=== PATIENT | female | born 1970 | race African-American/Black ===

== ENCOUNTER 2016-03-04 14:12 | Outpatient (RCR) | payer MEDICARE, MEDICAID ==
[~2016-03-04 14:12] MED LIST: AGM875T GT; ALBU8.5H2 INH; AMOX-355 PO; AZIT-21 PO; AZIT250T5 PO; Azithromycin PO; CEFD300C3 PO; CEFU250T PO; CHOL400T29 PO; CYAN10006 PO; CYCL10TA45 PO; CYCL10TA9 PO; DOCU-143 PO; DULO30CA PO; DULO30CA48 PO; ERT250T PO; ERYT-96 PO; ERYT500T8 PO; ERYTHROMYCIN BASE; ESCI20TA2 PO; ESCI20TA38 PO; Fentanyl TD; HUMALOG; HYOS0.1216 PO; INSU100I10 SQ; INSU100I23 SQ; LSNP10T PO; MEGE20TA6 PO; METO5TAB2 PO; METO5TAB79 PO; MORP15TA PO; MULT-68 PO; OMEP40CA36 PO; ONDA-42 SL; ONDA4TAB8 SL; OXYC-109 PO; OXYC-12 PO; OXYC-272 PO; OXYC-465 PO; POLY119P5 PO; PRD10T PO; RIVA15TA PO; RIVA20TA2 PO; Rivaroxaban PO; TRAM50TA2 PO; VITAMIN; VITAMIN B-12 PO; VITAMIN D; ZOLP10TA5 PO
--- OUTSIDE RECORDS SUMMARY | 2016-03-04 14:16 | XMS REPORT | Continuity of Care Document ---
Author Author [facility] Organization [facility] Address Unknown Phone Unavailable Care Team Providers Care Hog Scalder Name Role Phone Dpt Ku, Medicine PCP [phone] Source Comments Some departments are not documenting in the electronic medical record. If you do not see the information that you expected, contact Release of Information in the Health Information Management department at [phone] for further assistance in locating additional records.[facility] Active Allergies and Adverse Reactions Allergen Noted Date Severity Reactions Comments Aspirin 05/24/2007 High SWELLING Coumadin 05/24/2007 High RASH, VOMITING, ITCHING Ibuprofen 05/24/2007 High SWELLING Toradol 05/24/2007 Medium SWELLING Patient reports she tolerates with Benadryl. Current Medications Prescription Sig. Disp. Refills Start End Date Status Date promethazine (PHENERGAN) Take 1 Tab by mouth Three 60 2 03/17/20 Active 25 mg tablet Times Daily as needed 09 for Nausea. topiramate (TOPAMAX) 100 Take 1 Tab by mouth Twice 60 2 03/17/20 Active mg tablet Daily. 09 oxycodone/acetaminophen Take 1 Tab by mouth Every 30 0 05/13/20 Active (PERCOCET) 5/325 mg 4 Hours as needed for 09 tablet Pain. promethazine (PHENERGAN) Take 1 Tab by mouth Every 5 0 05/26/19 Active 25 mg tablet 6 Hours as needed for 10 Nausea. prochlorperazine Take 1 Tab by mouth Every 5 0 05/26/19 Active (COMPAZINE) 10 mg tablet 6 Hours as needed. 10 ZOLPIDEM TARTRATE (AMBIEN Take by mouth. Active PO) ERYTHROMYCIN BASE Use as directed. Active (ERYTHROMYCIN, BULK, MISC) morphine SR (AVINZA) 30 Take 30 mg by mouth Active mg capsule Daily. megestrol (MEGACE) 40 mg Take 40 mg by mouth Active tablet Daily. MULTIVITAMINS Take by mouth. Active (MULTIVITAMIN PO) CYANOCOBALAMIN (VITAMIN Take by mouth. Active B-12 PO) Morphine 30 mg CSRP Take by mouth Every 12 Active Hours. estradiol (ESTRACE) 1 mg Take 2 mg by mouth Daily. Active tablet ERGOCALCIFEROL (VITAMIN D Take 1,000 Units by mouth Active PO) Daily. escitalopram (LEXAPRO) 20 Take 1 Tab by mouth 30 Tab 0 10/03/19 Active mg PO tablet daily. 11 Active Problems Problem Noted Date Superior mesenteric artery syndrome (HCC) 03/17/2009 Anemia 03/17/2009 Vitamin D deficiency 03/17/2009 Malnutrition ([facility]) 03/17/2009 Weight loss, unintentional 03/06/2009 Abdominal pain 09/17/2008 Migraine 09/17/2008 Depression 09/17/2008 Anxiety 09/17/2008 Suicide attempt ([facility]) 09/17/2008 Asthma 09/17/2008 Chronic pain 09/17/2008 Immunizations Name Dates Previously Given Next Due FLU VACCINE >3YO 03/04/2009 (Preservative Free) Social History Tobacco Use Types Packs/Day Years Used Date Former Smoker Cigarettes Quit: 01/24/2009 Alcohol Use Drinks/Week oz/Week Comments No Last Filed Vital Signs Vital Sign Reading Time Taken Blood Pressure 137/100 11/30/2009 1:39 PM CDT Pulse 91 11/30/2009 1:39 PM CDT Temperature 36.9 C (98.5 F) 11/30/2009 10:04 AM CDT Respiratory Rate - - Height 1.575 m (5' 2") 11/30/2009 10:04 AM CDT Weight 42.638 kg (94 lb) 11/30/2009 10:04 AM CDT Body Mass Index 17.19 11/30/2009 10:04 AM CDT Oxygen Saturation 100% 11/30/2009 1:34 PM CDT Plan of Care Health Maintenance Due Date Last Done Comments Physical (Comprehensive) 1978 Exam Pertussis Vaccine 1982 Tetanus Vaccine 1988 Cervical Cancer Screening 1992 Influenza Vaccine 01/25/2016 03/04/2009 Results from Last 3 Months Not on file
[2016-03-04 14:40] LABS: BASOPHILS % (AUTO) 0 % (0-10); EOSINOPHILS # (AUTO) 0.4 10^3/uL (0.0-0.3); EOSINOPHILS % (AUTO) 4 % (0-10); LYMPHOCYTES # (AUTO) 3.5 X 10^3 (1.0-4.0); LYMPHOCYTES % (AUTO) 33 % (12-44); MEAN CORPUSCULAR HEMOGLOBIN 27 PG (25-34); MEAN CORPUSCULAR HGB CONC 32 G/DL (32-36); MEAN CORPUSCULAR VOLUME 83 FL (80-99); MEAN PLATELET VOLUME 10.4 FL (7.4-10.4); MONOCYTES # (AUTO) 0.7 X 10^3 (0.0-1.0); MONOCYTES % (AUTO) 7 % (0-12); NEUTROPHILS # (AUTO) 6.1 X 10^3 (1.8-7.8); NEUTROPHILS % (AUTO) 57 % (42-75); PLATELET COUNT 333 10^3/uL (130-400); RED BLOOD COUNT 5.13 10^6/uL (4.35-5.85); RED CELL DISTRIBUTION WIDTH 13.4 % (10.0-14.5); WHITE BLOOD COUNT 10.6 10^3/uL (4.3-11.0)
[2016-03-04 15:32] LABS: ALANINE AMINOTRANSFERASE 28 U/L (0-55); ALBUMIN 4.2 G/DL (3.2-4.5); ANION GAP 14 MMOL/L (5-14); ASPARTATE AMINO TRANSFERASE 27 U/L (5-34); BILIRUBIN,TOTAL 0.4 MG/DL (0.1-1.0); BLOOD UREA NITROGEN 10 MG/DL (7-18); BUN/CREATININE RATIO 10; CALCIUM 9.9 MG/DL (8.5-10.1); CARBON DIOXIDE 20 MMOL/L (21-32); CHLORIDE 99 MMOL/L (98-107); CREATININE SERUM 1.04 MG/DL (0.60-1.30); GFR ESTIMATED > 60; POTASSIUM 4.7 MMOL/L (3.6-5.0); SODIUM 133 MMOL/L (135-145); TOTAL PROTEIN 7.4 G/DL (6.4-8.2)
[2016-03-04 15:35] LABS: GLUCOSE 491 MG/DL (70-105)
[2016-03-04 17:10] LABS: %SAT TOTAL IRON BINDING CAPIC 18 % (15-50); TIBC 331 ug/dL (280-380)
[2016-03-04 17:23] LABS: UIBC 273 ug/dL (55-450)
[2016-03-05 07:54] LABS: FERRITIN 253 ng/mL (15-150)
== END 2016-06-02 | disposition home or self-care (01) ==
LOC: ONC 14:12
PROVIDERS: ATTEND Internal Medicine Hematology & Oncology
DX: I27.82 Chronic pulmonary embolism (principal); D64.9 Anemia, unspecified; E11.9 Type 2 diabetes mellitus without complications; F32.9 Major depressive disorder, single episode, unspecified; Z79.01 Long term (current) use of anticoagulants; Z79.899 Other long term (current) drug therapy; F17.210 Nicotine dependence, cigarettes, uncomplicated
CPT/HCPCS: 36415; 80053; 82728; 83540; 85025; 99213

== ENCOUNTER → 2016-06-06 | Outpatient (CLI) | payer MEDICARE, MEDICAID ==
[~2016-06-06] MED LIST changes: +ACET-93 PO; +CATHETER FLUSH 10 ML SYR IV PRN; +CIPR250T3 PO; +DRON5CAP PO; +ESCI20TA45 PO; +GABA600T2 PO; +IOHEXOL 350 MG/ML 100 ML (OMNIPAQUE 350) VIAL IV ONE; +METO10TA3 PO; +METR500T21 PO; +NS 100 ML (IVPB) BAG IV ONE; +POLY255P PO; +PREG300C PO; +RIVA20TA PO; +VARE1TAB21 PO
--- OUTSIDE RECORDS SUMMARY | 2016-06-06 12:57 | XMS REPORT | Continuity of Care Document ---
Author Author [facility] Organization [facility] Address Unknown Phone Unavailable Care Team Providers Care Ammunition Assembly I Laborer Name Role Phone Dpt Ku, Medicine PCP [phone] Source Comments Some departments are not documenting in the electronic medical record. If you do not see the information that you expected, contact Release of Information in the Health Information Management department at [phone] for further assistance in locating additional records.[facility] [...] Anemia 03/17/2009 Vitamin D deficiency 03/17/2009 Malnutrition ([facility]) 03/17/2009 Weight loss, unintentional 03/06/2009 Abdominal pain 09/17/2008 Migraine 09/17/2008 Depression 09/17/2008 Anxiety 09/17/2008 Suicide attempt ([facility]) 09/17/2008 Asthma 09/17/2008 Chronic pain 09/17/2008 Immunizations [...]
--- NOTE | 2016-06-06 14:23 | Diagnostic Imaging Report ---
PROCEDURE: CT abdomen and pelvis with contrast. TECHNIQUE: Multiple contiguous axial images were obtained through the abdomen and pelvis after administration of intravenous contrast. INDICATION: Periumbilical abdominal pain. 100 mL of Omnipaque 350 is administered intravenously. Patient had mesh repair, appendectomy and hysterectomy. FINDINGS: The lung bases demonstrate no significant abnormality. The liver, the gallbladder, the spleen, the pancreas, and the adrenal glands appear unremarkable. The kidneys have symmetric enhancement and contrast excretion. There is no hydronephrosis. Slight prominence in the left renal pelvis and anterior projection of the renal sinus in the left kidney is probably a normal variation. The urinary bladder appears unremarkable. The abdominal aorta is normal in caliber. No para-aortic significantly enlarged lymph node is seen. There is moderate amount of fecal material seen throughout the colon and rectum may relate to constipation. There is slight diastasis of the recti seen and mild laxity of the anterior abdominal wall superior to the umbilicus without hernia. No free fluid or fluid collection in the abdomen or pelvis seen. Post hysterectomy changes noted. The osseous structures appear grossly unremarkable. IMPRESSION: 1. Mild diastasis of the recti and slight laxity of the anterior abdominal wall above the umbilicus. No evidence of hernia recurrence. 2. Prominent amounts of fecal material in the colon and rectum, may relate to constipation. Dictated by: Dictated on workstation # [id number]
== END ==
LOC: RAD 12:54
PROVIDERS: ATTEND Internal Medicine
DX: R10.33 Periumbilical pain (principal)
CPT/HCPCS: 74177

== ENCOUNTER 2016-06-10 13:22 | Outpatient (RCR) | payer MEDICARE, MEDICAID ==
[~2016-06-10 13:22] MED LIST changes: -ACET-93 PO; -CATHETER FLUSH 10 ML SYR IV PRN; -CIPR250T3 PO; -DRON5CAP PO; -ESCI20TA45 PO; -GABA600T2 PO; -IOHEXOL 350 MG/ML 100 ML (OMNIPAQUE 350) VIAL IV ONE; -METO10TA3 PO; -METR500T21 PO; -NS 100 ML (IVPB) BAG IV ONE; -POLY255P PO; -PREG300C PO; -RIVA20TA PO; -VARE1TAB21 PO
--- OUTSIDE RECORDS SUMMARY | 2016-06-10 13:26 | XMS REPORT | Continuity of Care Document ---
Author Author [facility] Organization [facility] Address Unknown Phone Unavailable Care Team Providers Care Jitterbug Operator Name Role Phone Dpt Ku, Medicine PCP [phone] Source Comments Some departments are not documenting in the electronic medical record. If you do not see the information that you expected, contact Release of Information in the Health Information Management department at [phone] for further assistance in locating additional records.[facility] Active Allergies and Adverse Reactions Allergen Noted [...] Anemia 03/17/2009 Vitamin D deficiency 03/17/2009 Malnutrition ([facility]) 03/17/2009 Weight loss, unintentional 03/06/2009 Abdominal pain 09/17/2008 Migraine 09/17/2008 Depression 09/17/2008 Anxiety 09/17/2008 Suicide attempt ([facility]) 09/17/2008 Asthma 09/17/2008 Chronic pain [...]
[2016-06-10 13:43] LABS: BASOPHILS % (AUTO) 0 % (0-10); EOSINOPHILS # (AUTO) 0.2 10^3/uL (0.0-0.3); EOSINOPHILS % (AUTO) 2 % (0-10); LYMPHOCYTES # (AUTO) 3.1 X 10^3 (1.0-4.0); LYMPHOCYTES % (AUTO) 35 % (12-44); MEAN CORPUSCULAR HEMOGLOBIN 28 PG (25-34); MEAN CORPUSCULAR HGB CONC 32 G/DL (32-36); MEAN CORPUSCULAR VOLUME 85 FL (80-99); MEAN PLATELET VOLUME 10.5 FL (7.4-10.4); MONOCYTES # (AUTO) 0.5 X 10^3 (0.0-1.0); MONOCYTES % (AUTO) 6 % (0-12); NEUTROPHILS # (AUTO) 5.1 X 10^3 (1.8-7.8); NEUTROPHILS % (AUTO) 57 % (42-75); PLATELET COUNT 266 10^3/uL (130-400); RED BLOOD COUNT 4.73 10^6/uL (4.35-5.85); RED CELL DISTRIBUTION WIDTH 13.9 % (10.0-14.5); WHITE BLOOD COUNT 8.9 10^3/uL (4.3-11.0)
[2016-06-10 14:25] LABS: ALANINE AMINOTRANSFERASE 28 U/L (0-55); ALBUMIN 3.7 G/DL (3.2-4.5); ANION GAP 11 MMOL/L (5-14); ASPARTATE AMINO TRANSFERASE 20 U/L (5-34); BILIRUBIN,TOTAL 0.3 MG/DL (0.1-1.0); BLOOD UREA NITROGEN 10 MG/DL (7-18); BUN/CREATININE RATIO 12; CALCIUM 9.5 MG/DL (8.5-10.1); CARBON DIOXIDE 22 MMOL/L (21-32); CHLORIDE 106 MMOL/L (98-107); CREATININE SERUM 0.85 MG/DL (0.60-1.30); GFR ESTIMATED > 60; GLUCOSE 216 MG/DL (70-105); POTASSIUM 4.2 MMOL/L (3.6-5.0); SODIUM 139 MMOL/L (135-145); TOTAL PROTEIN 6.4 G/DL (6.4-8.2)
[2016-06-10 16:34] LABS: %SAT TOTAL IRON BINDING CAPIC 31 % (15-50); TIBC 315 ug/dL (280-380)
[2016-06-11 09:06] LABS: UIBC 218 ug/dL (55-450)
[2016-06-11 09:07] LABS: FERRITIN 156 ng/mL (15-150)
[2016-08-08] MEDS ORDERED: PREG300C PO (13:31)
== END 2016-09-08 | disposition home or self-care (01) ==
LOC: ONC 13:22
PROVIDERS: ATTEND Internal Medicine Hematology & Oncology
DX: I27.82 Chronic pulmonary embolism (principal); D64.9 Anemia, unspecified; E11.9 Type 2 diabetes mellitus without complications; F32.9 Major depressive disorder, single episode, unspecified; Z79.01 Long term (current) use of anticoagulants; Z79.899 Other long term (current) drug therapy; F17.210 Nicotine dependence, cigarettes, uncomplicated
CPT/HCPCS: 36415; 80053; 82728; 83540; 85025; 99213

== ENCOUNTER 2016-08-08 13:16 | Emergency (ER) | payer MEDICARE, MEDICAID ==
[~2016-08-08] VITALS: Ht 160 cm; Wt 46.7 kg
--- OUTSIDE RECORDS SUMMARY | 2016-08-08 13:23 | XMS REPORT | Continuity of Care Document ---
Author Author [facility] Organization [facility] Address Unknown Phone Unavailable Care Team Providers Care Operational Trainer Name Role Phone Dpt Ku, Medicine PCP [phone] Source Comments Some departments are not documenting in the electronic medical record. If you do not see the information that you expected, contact Release of Information in the Health Information Management department at [phone] for further assistance in locating additional records.[facility] Active Allergies and Adverse Reactions [...] Anemia 03/17/2009 Vitamin D deficiency 03/17/2009 Malnutrition ([facility]) 03/17/2009 Weight loss, unintentional 03/06/2009 Abdominal pain 09/17/2008 Migraine 09/17/2008 Depression 09/17/2008 Anxiety 09/17/2008 Suicide attempt (HCC) 09/17/2008 Asthma 09/17/2008 Chronic pain 09/17/2008 Immunizations [...] 11/30/2009 1:34 PM CDT Plan of Care Date Type Specialty Providers Description 09/24/2016 Appointment Gastroenterology Iman Olivo MBBS [address] [facility] [address] [place] [address] [phone] (Fax) Health Maintenance Due Date Last Done Comments Physical (Comprehensive) 1978 Exam Pertussis Vaccine 1982 Tetanus Vaccine 1988 Cervical Cancer Screening 1992 Breast Cancer Screening 2011 Influenza Vaccine 01/24/2017 03/04/2009 Results from Last 3 Months Not on file
[2016-08-08] MEDS ORDERED: PREG300C PO (13:31)
--- NOTE | 2016-08-08 14:08 | Diagnostic Imaging Report ---
EXAM: 2 views of the right ribs. INDICATION: Fall. FINDINGS: No rib fracture is seen. The right lung is clear. There is no significant effusion or pneumothorax. IMPRESSION: No rib fracture seen. Dictated by: Dictated on workstation # [id number]
--- NOTE | 2016-08-08 14:15 | ED Fall/Injury ---
General Chief Complaint: Trauma-Non Activation Stated Complaint: FALL/RIGHT RIB/BACK PAIN Nursing Triage Note: FELL DOWN THE STAIRS ONE WEEK AGO. C/O UNRELIEVED R SIDED RIB PAIN. History of Present Illness Time seen by provider: 14:25 Initial Comments Patient fell approximately one week ago and is continuing to have right rib pain. Occurred: last week Severity: mild Injuries/Pain Location: chest (right ribs) Context: lost balance, tripped Loss of Consciousness: no loss of consciousness Modifying Factors: Improves With Rest Associated Symptoms (Fall): Denies SymptomsNo Confusion, No Lightheadedness, No Muscle Spasms, No Nausea/Vomiting, No Neck Pain, No Trouble Walking, No Vision Changes Allergies and Home Medications Allergies Coded Allergies: ketorolac (Unverified Allergy, Severe, 07/07/14) aspirin (Verified Allergy, Unknown, 10/25/13) Uncoded Allergies: NSAIDS (Allergy, Unknown, 10/25/13) COUMADIN (Adverse Reaction, Unknown, 10/25/13) VOMITS BLOOD Home Medications 20 MG TABLET #30 20 MG PO DAILY Prescribed by: JESS LEVI on 08/03/14 1058 Albuterol Sulfate 8.5 Gm Aer.w.adap 2 PUFF INH QID PRN PRN SHORTNESS OF BREATH ( Reported) Cyanocobalamin 1,000 Mcg Tablet 1,000 MCG PO DAILY (Reported) Cyclobenzaprine Hcl 10 Mg Tablet 10 MG PO TID PRN PRN MUSCLE SPASMS (Reported) Duloxetine HCl 30 Mg Capsule.dr 30 MG PO DAILY (Reported) Erythromycin Base 500 Mg Tablet 500 MG PO TID (Reported) Escitalopram Oxalate 20 Mg Tablet 20 MG PO HS (Reported) Insulin Glargine,Hum.rec.anlog 300 Unit/3 Ml Insuln.pen 30 UNITS SQ HS (Reported ) Insulin Lispro 100 Unit/1 Ml Insuln.pen 8 UNIT SQ AC AM & NOON (Reported) Insulin Lispro 100 Unit/1 Ml Insuln.pen 10 UNIT SQ AC EVENING (Reported) Metoclopramide Hcl 5 Mg Tablet 5 MG PO TID (Reported) Multivitamins W-Iron 1 Tab Tablet 1 TAB PO DAILY (Reported) Omeprazole 40 Mg Capsule.dr 40 MG PO DAILY (Reported) Ondansetron 4 Mg Tab.rapdis #10 4 MG SL Q4H PRN PRN NAUSEA/VOMITING Prescribed by: MARCUS RAINEY on 08/14/15 1634 Oxycodone Hcl/Acetaminophen 1 Each Tablet 1 TAB PO TID PRN PRN PAIN (Reported) Polyethylene Glycol 3350 119 Gm Powder #1 17 GM PO TID PRN PRN CONSTIPATION Prescribed by: MARCUS RAINEY on 08/14/15 1629 Pregabalin 300 Mg Capsule 300 MG PO BID (Reported) Zolpidem Tartrate 10 Mg Tablet 30Days 5 MG PO HS You may cut the 10mg tabs in half. 5mg is the new recommended dose for women. Prescribed by: JESS LEVI on 08/03/14 1058 Constitutional: no symptoms reported see HPI Eyes: No Symptoms Reported See HPI Ears, Nose, Mouth, Throat: no symptoms reported Respiratory: see HPI other (pain right ribs, laterally) Cardiovascular: no symptoms reported see HPI Gastrointestinal: no symptoms reported see HPI Genitourinary: no symptoms reported see HPI Musculoskeletal: no symptoms reported see HPI Skin: no symptoms reported see HPI Psychiatric/Neurological: No Symptoms Reported See HPI All Other Systems Reviewed Negative Unless Noted: Yes Past Yawaqtv-Szgudj-Qvthnk Hx Patient Social History Alcohol Use: Denies Use Recreational Drug Use: No Smoking Status: Current Everyday Smoker Type Used: Cigarettes Recent Foreign Travel: No Contact w/Someone Who Travel: No Recent Infectious Disease Expo: No Recent Hopitalizations: No Immunizations Up To Date Tetanus Booster (TDap): Less than 5yrs Date of Pneumonia Vaccine: Jul 07, 2014 Date of Influenza Vaccine: Feb 23, 2015 Seasonal Allergies Seasonal Allergies: No Surgeries HX Surgeries: Yes (HERNIA, thoracentesis) Surgeries: Abdominal, Appendectomy, Hysterectomy Respiratory Hx Respiratory Disorders: Yes (HX PULMONARY EMBOLI) Respiratory Disorders: Asthma, Pulmonary Embolism Cardiovascular Hx Cardiac Disorders: No Neurological Hx Neurological Disorders: Yes (FIBROMYALGIA) Neurological Disorders: Neuropathy 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 System Hx 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 Disorders: No FRAME BANDER History: Hysterectomy Genitourinary Hx Genitourinary Disorders: No Gastrointestinal Hx Gastrointestinal Disorders: Yes (gastroparesis) Gastrointestinal Disorders: Gastroesophageal Reflux, Irritable Bowel Musculoskeletal Hx Musculoskeletal Disorders: Yes (lumbar radiculopathy) Musculoskeletal Disorders: Chronic Back Pain Endocrine Hx Endocrine Disorders: Yes Endocrine Disorders: Diabetes, Insulin dep HEENT HX ENT Disorders: No Cancer Hx Cancer: Yes Cancer: Ovarian Psychosocial Hx Psychiatric Problems: Yes Behavioral Health Disorders: Depression Integumentary HX Skin/Integumentary Disorder: No Blood Transfusions Hx Blood Disorders: Yes Adverse Reaction to a Blood Tr: No Reviewed Nursing Assessment Reviewed/Agree w Nursing PMH: Yes Family Medical History Significant Family History: No Pertinent Family Hx Family Medial History: Cardiovascular disease 19 MOTHER (CHF) G8 SISTER (CHF) Cataracts 19 MOTHER Diabetes mellitus 19 MOTHER G8 BROTHER G8 BROTHER G8 SISTER Hypertension 19 MOTHER G8 SISTER Physical Exam Vital Signs Vital Sign - Last 12Hours 08/08/16 13:22 Temp 97.4 Pulse 100 Resp 16 B/P 125/87 Pulse Ox 96 Capillary Refill : Less Than 3 Seconds General Appearance: WD/WN no apparent distress HEENT: PERRL/EOMI normal ENT inspection TMs normal pharynx normal Neck: non-tender full range of motion supple normal inspection Cardiovascular: normal peripheral pulses regular rate, rhythm no murmur Respiratory: lungs clear normal breath sounds other (pain lateral ribs, 5 through 10, no skin changes or crepitus) Gastrointestinal: normal bowel sounds non tender soft Back: normal inspection no CVA tenderness no vertebral tenderness Extremities: normal range of motion non-tender no calf tenderness normal capillary refill Neurologic/Psychiatric: no motor/sensory deficits alert normal mood/affect oriented x 3 Skin: normal color warm/dry Lymphatic: no adenopathy Gabriela Coma Score Best Eye Response: (4) Open Spontaneously Best Verbal Response: (5) Oriented Best Motor Response: (6) Obeys Commands Gabriela Total: 15 Progress/Results/Core Measures Results/Orders My Orders Orders-VELIA MATTHEWS Ribs, Right 2-3 Views (08/08/16 13:48) Cyclobenzaprine Tablet (Flexeril Tablet) (08/08/16 14:35) Vital Signs/I&O Vital Sign - Last 12Hours 08/08/16 08/08/16 13:22 14:43 Temp 97.4 97.4 Pulse 100 100 Resp 16 16 B/P 125/87 Pulse Ox 96 96 Blood Pressure Mean: 100 Diagnostic Imaging Diagonstic Imaging: Xray Plain Films/CT/US/NM/MRI: other (right ribs) Comments NAME: JAZMIN YOU Almas [facility] REC#: [id number] PT STATUS: REG ER : 1970 PHYSICIAN: VELIA MATTHEWS ADMIT DATE: 08/08/16/ER Draft Date of Exam:08/08/16 RIBS, RIGHT 2-3 VIEWS EXAM: 2 views of the right ribs. INDICATION: Fall. FINDINGS: No rib fracture is seen. The right lung is clear. There is no significant effusion or pneumothorax. IMPRESSION: No rib fracture seen. Dictated on workstation # [id number] Dict: 08/08/16 1405 Trans: 08/08/16 1408 [facility] [id number] Interpreted by: IRMA COKER MD Electronically signed by: Reviewed: Reviewed by Me Departure Impression Impression: Primary Impression: Fall (on) (from) other stairs and steps, initial encounter Additional Impression: Chest wall contusion Qualified Code: S20.211A - Contusion of right front wall of thorax, initial encounter Disposition: HOME, SELF-CARE Condition: Stable Departure-Patient Inst. Decision time for Depature: 14:30 Referrals: HORACE HIGGINS MD (PCP/Family) Primary Care Physician Patient Instructions: CHEST CONTUSION Add. Discharge Instructions: All discharge instructions reviewed with patient and/or family. Voiced understanding. warm moist compression to right ribs Continue home medications for pain Return to emergency department if difficulty breathing or increased pain. Follow-up with Dr. Higgins if continued symptoms. Copy Copies To 1: HORACE HIGGINS MD, AMY ARNP Aug 08, 2016 14:15
[2016-08-08] MEDS ORDERED: CYCLOBENZAPRINE 10 MG (FLEXERIL) TAB PO STA (14:35)
[2016-08-08 14:43] VITALS: BP 125/87
== END 2016-08-08 14:43 | disposition home or self-care (01) ==
LOC: EDUNIT# 13:16 → ER 13:19
DX: S20.211A Contusion of right front wall of thorax, initial encounter (principal); E11.9 Type 2 diabetes mellitus without complications; F17.210 Nicotine dependence, cigarettes, uncomplicated; Z79.4 Long term (current) use of insulin; Z79.899 Other long term (current) drug therapy; Z86.711 Personal history of pulmonary embolism; W10.9XXA Fall (on) (from) unspecified stairs and steps, initial encounter; Y99.8 Other external cause status
CPT/HCPCS: 71100; 99285

== ENCOUNTER 2016-08-24 12:03 | Emergency (ER) | payer MEDICARE, MEDICAID ==
[~2016-08-24] VITALS: Ht 157.5 cm; Wt 45.4 kg
[~2016-08-24 12:03] MED LIST changes: +PREG300C PO
--- NOTE | 2016-08-24 12:19 | ED Cough/URI ---
General Chief Complaint: Chest Wall/Rib Pain Stated Complaint: PNUEMONIA History of Present Illness Time seen by provider: 12:05 Initial Comments Patient presents for right rib pain and chest congestion. She had Tylenol at 0900 and used her pro-air inhaler at 0700. She denies using her pro-air inhaler more than once a day, for the last 72 hours. She was evaluated here on 08/08/16 for right rib pain after a fall a few weeks prior. No rib fractures were identified at that visit. She uses Flexeril for muscle pain and oxycodone for generalized pain. Timing/Duration: yesterday Severity/Quality: mild, productive cough, sputum (clear to yellow) Prior Episodes/Possible Cause: occasional episodes Modifying Factors: Improves With Albuterol Inhaler, Improves With Lying Down, Improves With Rest Associated Symptoms: chest pain/soreness (right), cough, fever/chills, muscle aches Allergies and Home Medications Allergies Coded Allergies: ketorolac (Unverified Allergy, Severe, 07/07/14) aspirin (Verified Allergy, Unknown, 10/25/13) Uncoded Allergies: NSAIDS (Allergy, Unknown, 10/25/13) COUMADIN (Adverse Reaction, Unknown, 10/25/13) VOMITS BLOOD Home Medications Albuterol Sulfate 8.5 Gm Aer.w.adap, 2 PUFF INH QID PRN for SHORTNESS OF BREATH, (Reported) Cyanocobalamin 1,000 Mcg Tablet, 1,000 MCG PO DAILY, (Reported) Cyclobenzaprine Hcl 10 Mg Tablet, 10 MG PO TID PRN for MUSCLE SPASMS, (Reported) Duloxetine HCl 30 Mg Capsule.dr, 30 MG PO DAILY, (Reported) Erythromycin Base 500 Mg Tablet, 500 MG PO TID, (Reported) Escitalopram Oxalate 20 Mg Tablet, 20 MG PO HS, (Reported) Insulin Glargine,Hum.rec.anlog 300 Unit/3 Ml Insuln.pen, 30 UNITS SQ HS, ( Reported) Insulin Lispro 100 Unit/1 Ml Insuln.pen, 8 UNIT SQ AC AM & NOON, (Reported) Insulin Lispro 100 Unit/1 Ml Insuln.pen, 10 UNIT SQ AC EVENING, (Reported) Metoclopramide Hcl 5 Mg Tablet, 5 MG PO TID, (Reported) Multivitamins W-Iron 1 Tab Tablet, 1 TAB PO DAILY, (Reported) Omeprazole 40 Mg Capsule.dr, 40 MG PO DAILY, (Reported) Ondansetron 4 Mg Tab.rapdis, 4 MG SL Q4H PRN for NAUSEA/VOMITING, #10 Prescribed by: MARCUS RAINEY on 08/14/15 1634 Oxycodone Hcl/Acetaminophen 1 Each Tablet, 1 TAB PO TID PRN for PAIN, (Reported) Polyethylene Glycol 3350 119 Gm Powder, 17 GM PO TID PRN for CONSTIPATION, #1 Prescribed by: MARCUS RAINEY on 08/14/15 1629 Pregabalin 300 Mg Capsule, 300 MG PO BID, (Reported) Zolpidem Tartrate 10 Mg Tablet, 5 MG PO HS for 30 Days You may cut the 10mg tabs in half. 5mg is the new recommended dose for women. Prescribed by: JESS LEVI on 08/03/14 1058 [Rivaroxaban] 20 MG TABLET, 20 MG PO DAILY, #30 Ref 6 Prescribed by: JESS LEVI on 08/03/14 1058 Constitutional: no symptoms reported, see HPI EENTM: no symptoms reported, see HPI Respiratory: see HPI, cough, other (right rib pain) Cardiovascular: no symptoms reported, see HPI Gastrointestinal: no symptoms reported, see HPI Genitourinary: no symptoms reported, see HPI : No Musculoskeletal: no symptoms reported, see HPI Skin: no symptoms reported, see HPI Psychiatric/Neurological: No Symptoms Reported, See HPI Hematologic/Lymphatic: No Symptoms Reported, See HPI Immunological/Allergic: no symptoms reported, see HPI All Other Systems Reviewed Negative Unless Noted: Yes Past Jxqsxwn-Iyrmjw-Zcxcrk Hx Patient Social History Alcohol Use: Denies Use Recreational Drug Use: No Smoking Status: Current Everyday Smoker Type Used: Cigarettes Recent Foreign Travel: No Contact w/Someone Who Travel: No Recent Hopitalizations: No Immunizations Up To Date Tetanus Booster (TDap): Less than 5yrs Date of Pneumonia Vaccine: Jul 07, 2014 Date of Influenza Vaccine: Feb 23, 2015 Seasonal Allergies Seasonal Allergies: No Surgeries HX Surgeries: Yes (HERNIA, thoracentesis) Surgeries: Abdominal, Appendectomy, Hysterectomy Respiratory Hx Respiratory Disorders: Yes (HX PULMONARY EMBOLI) Respiratory Disorders: Asthma, Pulmonary Embolism Cardiovascular Hx Cardiac Disorders: No Neurological Hx Neurological Disorders: Yes (FIBROMYALGIA) Neurological Disorders: Neuropathy 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 System Hx 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 Disorders: No 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 Genitourinary Hx Genitourinary Disorders: No Gastrointestinal Hx Gastrointestinal Disorders: Yes (gastroparesis) Gastrointestinal Disorders: Gastroesophageal Reflux, Irritable Bowel Musculoskeletal Hx Musculoskeletal Disorders: Yes (lumbar radiculopathy) Musculoskeletal Disorders: Chronic Back Pain Endocrine Hx Endocrine Disorders: Yes Endocrine Disorders: Diabetes, Insulin dep HEENT HX ENT Disorders: No Cancer Hx Cancer: Yes Cancer: Ovarian Psychosocial Hx Psychiatric Problems: Yes Behavioral Health Disorders: Depression Integumentary HX Skin/Integumentary Disorder: No Blood Transfusions Hx Blood Disorders: Yes Adverse Reaction to a Blood Tr: No Reviewed Nursing Assessment Reviewed/Agree w Nursing PMH: Yes Family Medical History Significant Family History: No Pertinent Family Hx Family Medial History: Cardiovascular disease 19 MOTHER (CHF) G8 SISTER (CHF) Cataracts 19 MOTHER Diabetes mellitus 19 MOTHER G8 BROTHER G8 BROTHER G8 SISTER Hypertension 19 MOTHER G8 SISTER Physical Exam Vital Signs Vital Sign - Last 12Hours 08/24/16 12:14 Temp 98.4 Pulse 111 Resp 20 B/P (MAP) 115/77 Pulse Ox 99 O2 Delivery Room Air Capillary Refill : General Appearance: WD/WN, no apparent distress Eyes: Bilateral Eye EOMI, Bilateral Eye Normal Inspection, Bilateral Eye PERRL HEENT: PERRL/EOMI, normal ENT inspection, TMs normal, pharynx normal Neck: non-tender, full range of motion, supple, normal inspection Respiratory: chest non-tender, lungs clear, normal breath sounds, no respiratory distress Cardiovascular: normal peripheral pulses, regular rate, rhythm, no edema, no murmur Gastrointestinal: normal bowel sounds, no organomegaly, no pulsatile mass, distended, No rebound, tenderness (right upper quadrant) Extremities: normal range of motion, non-tender, normal inspection, no pedal edema, no calf tenderness, normal capillary refill Neurologic/Psychiatric: no motor/sensory deficits, alert, normal mood/affect, oriented x 3 Skin: normal color, warm/dry Lymphatic: no adenopathy Progress/Results/Core Measures Results/Orders Lab Results Laboratory Tests Test 08/24/16 12:30 08/24/16 13:12 08/24/16 14:26 Range/Units White Blood Count 9.9 4.3-11.0 10^3/uL Red Blood Count 5.11 4.35-5.85 10^6/uL Hemoglobin 14.2 11.5-16.0 G/DL Hematocrit 42 35-52 % Mean Corpuscular Volume 83 80-99 FL Mean Corpuscular Hemoglobin 28 25-34 PG Mean Corpuscular Hemoglobin Concent 34 32-36 G/DL Red Cell Distribution Width 12.8 10.0-14.5 % Platelet Count 289 130-400 10^3/uL Mean Platelet Volume 11.5 H 7.4-10.4 FL Neutrophils (%) (Auto) 66 42-75 % Lymphocytes (%) (Auto) 26 12-44 % Monocytes (%) (Auto) 5 0-12 % Eosinophils (%) (Auto) 2 0-10 % Basophils (%) (Auto) 0 0-10 % Neutrophils # (Auto) 6.5 1.8-7.8 X 10^3 Lymphocytes # (Auto) 2.6 1.0-4.0 X 10^3 Monocytes # (Auto) 0.5 0.0-1.0 X 10^3 Eosinophils # (Auto) 0.2 0.0-0.3 10^3/uL Basophils # (Auto) 0.0 0.0-0.1 10^3/uL Sodium Level 131 L 135-145 MMOL/L Potassium Level 4.4 3.6-5.0 MMOL/L Chloride Level 97 L 98-107 MMOL/L Carbon Dioxide Level 18 L 21-32 MMOL/L Anion Gap 16 H 5-14 MMOL/L Blood Urea Nitrogen 13 7-18 MG/DL Creatinine 1.22 0.60-1.30 MG/DL Estimat Glomerular Filtration Rate 58 BUN/Creatinine Ratio 11 Glucose Level 645 *H 70-105 MG/DL Calcium Level 9.4 8.5-10.1 MG/DL Total Bilirubin 0.4 0.1-1.0 MG/DL Aspartate Amino Transf (AST/SGOT) 20 5-34 U/L Alanine Aminotransferase (ALT/SGPT) 25 0-55 U/L Alkaline Phosphatase 175 H 40-136 U/L Total Protein 7.0 6.4-8.2 G/DL Albumin 3.8 3.2-4.5 G/DL Urine Color YELLOW Urine Clarity CLEAR Urine pH 6 5-9 Urine Specific [place] 1.010 L 1.016-1.022 Urine Protein 2+ H NEGATIVE Urine Glucose (UA) 4+ H NEGATIVE Urine Ketones NEGATIVE NEGATIVE Urine Nitrite NEGATIVE NEGATIVE Urine Bilirubin NEGATIVE NEGATIVE Urine Urobilinogen NORMAL NORMAL MG/DL Urine Leukocyte Esterase NEGATIVE NEGATIVE Urine RBC (Auto) NEGATIVE NEGATIVE Urine RBC NONE /HPF Urine WBC NONE /HPF Urine Squamous Epithelial Cells 5-10 /HPF Urine Crystals NONE /LPF Urine Bacteria NEGATIVE /HPF Urine Casts NONE /LPF Urine Mucus NEGATIVE /LPF Urine Culture Indicated NO Glucometer 405 *H 70-110 MG/DL My Orders Orders - CASSIEVELIA Cbc With Automated Diff (08/24/16 12:17) Comprehensive Metabolic Panel (08/24/16 12:17) Chest Pa/Lat (2 View) (08/24/16 12:17) Oxycodone/Apap 5/325mg Tablet (Percocet (08/24/16 12:40) Insulin (Regular) Human (Humulin R (Per (08/24/16 13:07) Saline Lock/Iv-Start (08/24/16 13:08) Ns Iv 1000 Ml (Sodium Chloride 0.9%) (08/24/16 13:08) Ua Culture If Indicated (08/24/16 13:08) Ondansetron Injection (Zofran Injectio (08/24/16 13:30) Accucheck Stat ONCE (08/24/16 13:58) Medications Given in ED Current Medications Medications Dose Ordered Sig/Jenifer Route Start Time Stop Time Status Last Admin Dose Admin Ondansetron HCl 4 mg ONCE ONCE IVP 08/24/16 13:30 08/24/16 13:31 DC 08/24/16 13:25 4 MG Sodium Chloride 1,000 ml @ 0 mls/hr Q0M ONCE IV 08/24/16 13:08 08/24/16 13:09 DC 08/24/16 13:24 1,000 MLS/HR Vital Signs/I&O Vital Sign - Last 12Hours 08/24/16 12:14 Temp 98.4 Pulse 111 Resp 20 B/P (MAP) 115/77 Pulse Ox 99 O2 Delivery Room Air Progress Note : Time: 12:05 Progress Note Initial evaluation completed, recommended chest x-ray, CBC, and CMP. 1210 Patient complaining of right rib pain, pain rated 10 over 10. Percocet 5 mg by mouth. 1230 WBC 9.9, hemoglobin 14.2, hematocrit 42, platelets 289. 1305 patient's glucose 645. Sodium 131, potassium 4.4, UN 13, creatinine 1.22, estimated GFR 58, AST 20, ALTs 25, alkaline phosphatase 175, BUN 13. Upon questioning the patient she reports she has not used her Humalog for 3 days, her her reasons stated is "I don't like sticking myself." She did use her Lantus last evening. She is drinking a 32 oz Pepsi, she reports it is not sugar- free. She agreed to discontinue drinking the Pepsi and the remainder of the cup was thrown away. Upon discussing this with her she is unaware that there is sugar in Pepsi or other pop products. Education provided about using sugar-free options. Will give insulin 10 units regular, subcutaneous. And 1 L normal saline , IV fluid. UA ordered. Patient complaining of nausea, Zofran 4 mg IV 1330 urine essentially normal with the exception of protein and 2+ and glucose 4 +, negative for ketones or nitrites 1430 glucose 405. IV infusing slowly, 24-gauge. 1450 IV fluids finished infusing. Discussed findings with patient and recommended better compliance with treatment for her diabetes. She agreed with this and is ready for discharge to home. Diagnostic Imaging Diagonstic Imaging: Xray Plain Films/CT/US/NM/MRI: chest Comments VIA [facility], [facility]. [place], [place] NAME: JAZMIN YOU [facility] REC#: [id number] PT STATUS: REG ER : 1970 PHYSICIAN: VELIA MATTHEWS [facility] ADMIT DATE: 08/24/16/ER Draft Date of Exam:08/24/16 CHEST PA/LAT (2 VIEW) INDICATION: Pain. COMPARISON: 06/09/2015 TECHNIQUE: Two radiographs of the chest dated 08/24/2016. FINDINGS: The cardiac silhouette is within normal limits. No significant pulmonary vascular congestion. The lungs are clear without focal pulmonary opacity. No pleural effusion. No pneumothorax. No acute osseous abnormality. IMPRESSION: Stable appearing examination without acute cardiopulmonary abnormality. Dictated on workstation # [id number] Dict: 08/24/16 1237 Trans: 08/24/16 1241 [id number] Interpreted by: JAMES PIMENTEL MD Electronically signed by: Reviewed: Reviewed by Me Departure Impression Impression: Primary Impression: Diabetes mellitus with hyperglycemia Qualified Codes: E10.65 - Type 1 diabetes mellitus with hyperglycemia Additional Impression: Rib pain Disposition: HOME, SELF-CARE Condition: Improved Departure-Patient Inst. Referrals: HORACE HIGGINS MD (PCP/Family) Primary Care Physician Patient Instructions: Bruised Rib (DC), Hyperglycemia, Adult (DC) Add. Discharge Instructions: All discharge instructions reviewed with patient and/or family. Voiced understanding. Continue to monitor blood sugar and give yourself insulin per protocol with Dr. Higgins Follow up with Dr. Higgins in 3-4 days for rib pain and high blood sugars. Return to emergency department if symptoms worsen, difficulty breathing, high fevers, or any other concerns. Copy Copies To 1: HORACE HIGGINS MD, AMY ARNP Aug 24, 2016 12:19
[2016-08-24] MEDS ORDERED: oxyCODONE/APAP 5/325MG (PERCOCET 5) TABLET PO STA (12:40)
--- NOTE | 2016-08-24 12:41 | Diagnostic Imaging Report ---
INDICATION: Pain. COMPARISON: 06/09/2015 TECHNIQUE: Two radiographs of the chest dated 08/24/2016. FINDINGS: The cardiac silhouette is within normal limits. No significant pulmonary vascular congestion. The lungs are clear without focal pulmonary opacity. No pleural effusion. No pneumothorax. No acute osseous abnormality. IMPRESSION: Stable appearing examination without acute cardiopulmonary abnormality. Dictated by: Dictated on workstation # [id number]
[2016-08-24 12:42] LABS: BASOPHILS % (AUTO) 0 % (0-10); EOSINOPHILS # (AUTO) 0.2 10^3/uL (0.0-0.3); EOSINOPHILS % (AUTO) 2 % (0-10); LYMPHOCYTES # (AUTO) 2.6 X 10^3 (1.0-4.0); LYMPHOCYTES % (AUTO) 26 % (12-44); MEAN CORPUSCULAR HEMOGLOBIN 28 PG (25-34); MEAN CORPUSCULAR HGB CONC 34 G/DL (32-36); MEAN CORPUSCULAR VOLUME 83 FL (80-99); MEAN PLATELET VOLUME 11.5 FL (7.4-10.4); MONOCYTES # (AUTO) 0.5 X 10^3 (0.0-1.0); MONOCYTES % (AUTO) 5 % (0-12); NEUTROPHILS # (AUTO) 6.5 X 10^3 (1.8-7.8); NEUTROPHILS % (AUTO) 66 % (42-75); PLATELET COUNT 289 10^3/uL (130-400); RED BLOOD COUNT 5.11 10^6/uL (4.35-5.85); RED CELL DISTRIBUTION WIDTH 12.8 % (10.0-14.5); WHITE BLOOD COUNT 9.9 10^3/uL (4.3-11.0)
[2016-08-24 13:04] LABS: ALBUMIN 3.8 G/DL (3.2-4.5); BILIRUBIN,TOTAL 0.4 MG/DL (0.1-1.0); CALCIUM 9.4 MG/DL (8.5-10.1); CREATININE SERUM 1.22 MG/DL (0.60-1.30); POTASSIUM 4.4 MMOL/L (3.6-5.0)
[2016-08-24] MEDS ORDERED: inSUlin (REGULAR) HUMAN 1 UNIT/0.01 ML (CHARGE PER UNIT) SC STA (13:07)
[2016-08-24] MEDS ORDERED: NS IV 1000 ML 1,000 ML IV ONE (13:08)
[2016-08-24 13:19] LABS: BILIRUBIN,URINE NEGATIVE (NEGATIVE); KETONES,URINE NEGATIVE (NEGATIVE); LEUKOCYTE ESTERASE ,URINE NEGATIVE (NEGATIVE); NITRITE,URINE NEGATIVE (NEGATIVE); PH,URINE 6 (5-9); PROTEIN,URINE 2+ (NEGATIVE); UROBILINOGEN,URINE NORMAL (NORMAL)
[2016-08-24] MEDS ORDERED: ONDANSETRON 4 MG/2 ML (SDV) Z0FRAN IVP ONE (13:30)
[2016-08-24 15:01] VITALS: BP 105/69
--- OUTSIDE RECORDS SUMMARY | 2016-09-17 09:13 | XMS REPORT | Continuity of Care Document ---
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 If you do not see the information that you expected, contact Release of Information in the Health Information Management department at [phone] for further assistance in locating additional records.[facility] Active Allergies and Adverse Reactions Allergen Noted [...] Anemia 03/17/2009 Vitamin D deficiency 03/17/2009 Malnutrition ([facility]) 03/17/2009 Weight loss, unintentional 03/06/2009 Abdominal pain 09/17/2008 Migraine 09/17/2008 Depression 09/17/2008 Anxiety 09/17/2008 Suicide attempt ([facility]) 09/17/2008 Asthma 09/17/2008 Chronic pain 09/17/2008 [...]
--- OUTSIDE RECORDS SUMMARY | 2016-09-17 09:15 | XMS REPORT | Continuity of Care Document ---
Author Author [facility] Address Unknown Phone Unavailable Allergies Active Description Code Type Severity Reaction Onset Reported/Identified Relationship to Patient Clinical Status Yes Coumadin Drug Allergy N/A N/A 02/17/2012 Yes NSAIDS (Non-Steroidal Anti-Inflammatory Drug) Drug Allergy N/A N/A 02/17/2012 Yes Toradol Drug Allergy N/A N/A 02/17/2012 Yes Coumadin Drug Allergy 02/17/2012 Yes NSAIDS (Non-Steroidal Anti-Inflammatory Drug) Drug Allergy 02/17/2012 Yes Toradol Drug Allergy 02/17/2012 Yes Percocet Drug Allergy N/A N/A 12/03/2012 Yes aspirin [id number] Drug Allergy Unknown N/A 10/25/2013 Yes COUMADIN COUMADIN Unknown N/A 10/25/2013 Yes NSAIDS NSAIDS Unknown N/A 10/25/2013 Yes ketorolac [id number] Drug Allergy Severe N/A 07/07/2014 Yes NSAIDS (Non-Steroidal Anti-Inflamma NSAIDS (Non-Steroidal Anti-Inflamma Drug Allergy Mild swelling 10/27/2014 Yes warfarin warfarin Drug Allergy Mild vomit blood 10/27/2014 Medications Problems Date Dx Coded Attending Type Code Diagnosis Diagnosed By 04/24/1058 FUNMILAYO SHEA MD Ot D64.9 ANEMIA, UNSPECIFIED 04/24/1058 FUNMILAYO SHEA MD Ot E11.9 TYPE 2 DIABETES MELLITUS WITHOUT COMPLIC 04/24/1058 FUNMILAYO SHEA MD Ot F17.210 NICOTINE DEPENDENCE, CIGARETTES, UNCOMPL 04/24/1058 FUNMILAYO SHEA MD Ot F32.9 MAJOR DEPRESSIVE DISORDER, SINGLE EPISOD 04/24/1058 FUNMILAYO SHEA MD Ot 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 04/24/1058 FUNMILAYO SHEA MD Ot Z79.01 PARCEL POST WEIGHER (CURRENT) USE OF ANTICOAGULANT 04/24/1058 FUNMILAYO SHEA MD Ot Z79.899 OTHER CORRECTION (CURRENT) DRUG THERAPY 01/09/2012 Ot 724.2 LUMBAGO 01/09/2012 Ot 729.1 MYALGIA AND MYOSITIS NOS 02/17/2012 250.00 DIABETES II CONTROLLED (UNCOMPLICATED) 02/17/2012 729.1 MYALGIA AND MYOSITIS UNSPECIFIED 02/17/2012 V04.81 FLU DX (MEDICARE ONLY) 02/17/2012 250.00 DIABETES II CONTROLLED (UNCOMPLICATED) 02/17/2012 729.1 MYALGIA AND MYOSITIS UNSPECIFIED 02/17/2012 V04.81 FLU DX (MEDICARE ONLY) 02/17/2012 DESIREE LYONS DO K 250.00 DIABETES II CONTROLLED (UNCOMPLICATED) 02/17/2012 LYONS DOAIDAA K 729.1 MYALGIA AND MYOSITIS UNSPECIFIED 02/17/2012 DESIREE LYONS DO K V04.81 FLU DX (MEDICARE ONLY) 02/17/2012 TISHA YOUNG APRN S 250.00 DIABETES II CONTROLLED (UNCOMPLICATED) 02/17/2012 TISHA YOUNG APRN S 729.1 MYALGIA AND MYOSITIS UNSPECIFIED 02/17/2012 TISHA YOUNG APRN S V04.81 FLU DX (MEDICARE ONLY) 02/17/2012 250.00 DIABETES II CONTROLLED (UNCOMPLICATED) 02/17/2012 729.1 MYALGIA AND MYOSITIS UNSPECIFIED 02/17/2012 V04.81 FLU DX (MEDICARE ONLY) 02/17/2012 TISHA YOUNG APRN S 250.00 DIABETES II CONTROLLED (UNCOMPLICATED) 02/17/2012 TISHA YOUNG APRN S 729.1 MYALGIA AND MYOSITIS UNSPECIFIED 02/17/2012 TISHA YOUNG APRN S V04.81 FLU DX (MEDICARE ONLY) 02/17/2012 250.00 DIABETES II CONTROLLED (UNCOMPLICATED) 02/17/2012 729.1 MYALGIA AND MYOSITIS UNSPECIFIED 02/17/2012 V04.81 FLU DX (MEDICARE ONLY) 02/17/2012 250.00 DIABETES II CONTROLLED (UNCOMPLICATED) 02/17/2012 729.1 MYALGIA AND MYOSITIS UNSPECIFIED 02/17/2012 V04.81 Flu Dx (medicare Only) 02/17/2012 250.00 DIABETES II CONTROLLED (UNCOMPLICATED) 02/17/2012 729.1 MYALGIA AND MYOSITIS UNSPECIFIED 02/17/2012 V04.81 Flu Dx (medicare Only) 02/17/2012 250.00 DIABETES II CONTROLLED (UNCOMPLICATED) 02/17/2012 729.1 MYALGIA AND MYOSITIS UNSPECIFIED 02/17/2012 V04.81 Flu Dx (medicare Only) 02/17/2012 DESIREE LYONS DO 250.00 DIABETES II CONTROLLED (UNCOMPLICATED) 02/17/2012 DESIREE LYONS DO 729.1 MYALGIA AND MYOSITIS UNSPECIFIED 02/17/2012 DESIREE LYONS DO V04.81 Flu Dx (medicare Only) 02/17/2012 CALOS SALEEM APRN A 250.00 DIABETES II CONTROLLED (UNCOMPLICATED) 02/17/2012 CALOS SALEEM APRN 729.1 MYALGIA AND MYOSITIS UNSPECIFIED 02/17/2012 CALOS SALEEM APRN A V04.81 Flu Dx (medicare Only) 02/17/2012 HORACE HIGGINS MD 250.00 DIABETES II CONTROLLED (UNCOMPLICATED) 02/17/2012 HORACE HIGGINS MD 729.1 MYALGIA AND MYOSITIS UNSPECIFIED 02/17/2012 HORACE HIGGINS MD V04.81 Flu Dx (medicare Only) 02/17/2012 HORACE HIGGINS MD 250.00 DIABETES II CONTROLLED (UNCOMPLICATED) 02/17/2012 HORACE HIGGINS MD 729.1 MYALGIA AND MYOSITIS UNSPECIFIED 02/17/2012 HORACE HIGGINS MD V04.81 Flu Dx (medicare Only) 02/17/2012 TISHA YOUNG APRN 250.00 DIABETES II CONTROLLED (UNCOMPLICATED) 02/17/2012 TISHA YOUNG APRN 729.1 MYALGIA AND MYOSITIS UNSPECIFIED 02/17/2012 TISHA YOUNG APRN V04.81 FLU DX (MEDICARE ONLY) 05/20/2012 Ot 346.90 MIGRAINE UNSPECIFIED W/O INTRACT MGRN W/ 05/20/2012 Ot 473.9 CHRONIC SINUSITIS NOS 05/20/2012 Ot 784.0 HEADACHE 06/22/2012 788.1 DYSURIA 06/22/2012 788.1 DYSURIA 06/22/2012 DESIREE LYONS DO 788.1 DYSURIA 06/22/2012 TISHA YOUNG APRN S 788.1 DYSURIA 06/22/2012 788.1 DYSURIA 06/22/2012 TISHA YOUNG APRN S 788.1 DYSURIA 06/22/2012 788.1 DYSURIA 06/22/2012 788.1 Dysuria 06/22/2012 788.1 Dysuria 06/22/2012 788.1 Dysuria 06/22/2012 DESIREE LYONS DO K 788.1 Dysuria 06/22/2012 JULIANO SALEEM APRNIDI A 788.1 Dysuria 06/22/2012 RONALDO URRUTIA, HORACE 788.1 Dysuria 06/22/2012 RONALDO URRUTIA, HORACE 788.1 Dysuria 07/02/2012 LYONS DESIREE LONG K 789.04 ABDOMINAL PAIN LEFT LOWER QUADRANT 07/02/2012 DESIREE LYONS DO K V72.31 HEALTH MANAGEMENT CONSULTANT EXAM, ROUTINE 07/02/2012 DESIREE LYONS DO K V76.10 BREAST CANCER SCREENING 07/02/2012 TISHA YOUNG APRN S 789.04 ABDOMINAL PAIN LEFT LOWER QUADRANT 07/02/2012 ALLIE YOUNG APRNA S V72.31 HEALTH MANAGEMENT CONSULTANT EXAM, ROUTINE 07/02/2012 ALLIE YOUNG APRNA S V76.10 BREAST CANCER SCREENING 07/02/2012 789.04 ABDOMINAL PAIN LEFT LOWER QUADRANT 07/02/2012 V72.31 HEALTH MANAGEMENT CONSULTANT EXAM, ROUTINE 07/02/2012 V76.10 BREAST CANCER SCREENING 07/02/2012 TISHA YOUNG APRN S 789.04 ABDOMINAL PAIN LEFT LOWER QUADRANT 07/02/2012 ALLIE YOUNG APRNA S V72.31 HEALTH MANAGEMENT CONSULTANT EXAM, ROUTINE 07/02/2012 LEANA YOUNG APRNNDA S V76.10 BREAST CANCER SCREENING 07/02/2012 789.04 ABDOMINAL PAIN LEFT LOWER QUADRANT 07/02/2012 V72.31 HEALTH MANAGEMENT CONSULTANT EXAM, ROUTINE 07/02/2012 V76.10 BREAST CANCER SCREENING 07/02/2012 789.04 ABDOMINAL PAIN LEFT LOWER QUADRANT 07/02/2012 V72.31 HEALTH MANAGEMENT CONSULTANT EXAM, ROUTINE 07/02/2012 V76.10 BREAST CANCER SCREENING 07/02/2012 789.04 ABDOMINAL PAIN LEFT LOWER QUADRANT 07/02/2012 V72.31 HEALTH MANAGEMENT CONSULTANT EXAM, ROUTINE 07/02/2012 V76.10 BREAST CANCER SCREENING 07/02/2012 789.04 ABDOMINAL PAIN LEFT LOWER QUADRANT 07/02/2012 V72.31 HEALTH MANAGEMENT CONSULTANT EXAM, ROUTINE 07/02/2012 V76.10 BREAST CANCER SCREENING 07/02/2012 DESIREE LYONS DO 789.04 ABDOMINAL PAIN LEFT LOWER QUADRANT 07/02/2012 DESIREE LYONS DO V72.31 HEALTH MANAGEMENT CONSULTANT EXAM, ROUTINE 07/02/2012 DESIREE LYONS DO V76.10 BREAST CANCER SCREENING 07/02/2012 CALOS SALEEM APRN 789.04 ABDOMINAL PAIN LEFT LOWER QUADRANT 07/02/2012 CALOS SALEEM APRN V72.31 HEALTH MANAGEMENT CONSULTANT EXAM, ROUTINE 07/02/2012 CALOS SALEEM APRN V76.10 BREAST CANCER SCREENING 07/02/2012 HORACE HIGGINS MD 789.04 ABDOMINAL PAIN LEFT LOWER QUADRANT 07/02/2012 HORACE HIGGINS MD V72.31 HEALTH MANAGEMENT CONSULTANT EXAM, ROUTINE 07/02/2012 HORACE HIGGINS MD V76.10 BREAST CANCER SCREENING 07/02/2012 HORACE HIGGINS MD 789.04 ABDOMINAL PAIN LEFT LOWER QUADRANT 07/02/2012 HORACE HIGGINS MD V72.31 HEALTH MANAGEMENT CONSULTANT EXAM, ROUTINE 07/02/2012 HORACE HIGGINS MD V76.10 BREAST CANCER SCREENING 07/07/2012 Ot 250.00 DIAB RAMSES WO COMPL, TYPE II OR UNSPEC TY 07/07/2012 Ot 250.02 DIAB RAMSES WO COMPL, TYPE II OR UNSPEC TY 07/07/2012 Ot V58.67 LONG-TERM (CURRENT) USE OF INSULIN 07/27/2012 TISHA YOUNG APRN 466.0 BRONCHITIS, ACUTE 07/27/2012 466.0 BRONCHITIS, ACUTE 07/27/2012 TISHA YOUNG APRN 466.0 BRONCHITIS, ACUTE 07/27/2012 466.0 BRONCHITIS, ACUTE 07/27/2012 466.0 Bronchitis, Acute 07/27/2012 466.0 Bronchitis, Acute 07/27/2012 466.0 Bronchitis, Acute 07/27/2012 DESIREE LYONS DO 466.0 Bronchitis, Acute 07/27/2012 CALOS SALEEM APRN A 466.0 Bronchitis, Acute 07/27/2012 HORACE HIGGINS MD 466.0 Bronchitis, Acute 07/27/2012 HORACE HIGGINS MD 466.0 Bronchitis, Acute 09/03/2012 599.70 HEMATURIA 09/03/2012 599.70 HEMATURIA 09/03/2012 599.70 HEMATURIA 09/03/2012 599.70 HEMATURIA 09/03/2012 DESIREE LYONS DO 599.70 HEMATURIA 09/03/2012 CALOS SALEEM APRN 599.70 HEMATURIA 09/03/2012 HORACE HIGGINS MD 599.70 HEMATURIA 09/03/2012 HORACE HIGGINS MD 599.70 HEMATURIA 12/03/2012 DESIREE LYONS DO 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 12/03/2012 CALOS SALEEM APRN 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 12/03/2012 HORACE HIGGINS MD 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 12/03/2012 HORACE HIGGINS MD 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 05/19/2013 JOE VEGA MD Ot 564.00 UNSPEC CONSTIPATION 05/19/2013 JOE VEGA MD Ot 789.05 ABDOMINAL PAIN, PERIUMBILIC 10/25/2013 MARTHA JOHNSON DO Ot 789.00 ABDOMINAL PAIN, UNSPECIFIED SITE 03/30/2014 CALOS SALEEM APRN 627.3 POSTMENOPAUSAL ATROPHIC VAGINITIS 03/30/2014 CALOS SALEEM APRN V65.42 COUNSELING - SMOKING CESSATION 03/30/2014 HORACE HIGGINS MD 627.3 POSTMENOPAUSAL ATROPHIC VAGINITIS 03/30/2014 HORACE HIGGINS MD V65.42 COUNSELING - SMOKING CESSATION 03/30/2014 HORACE HIGGINS MD 627.3 POSTMENOPAUSAL ATROPHIC VAGINITIS 03/30/2014 HORACE HIGGINS MD V65.42 COUNSELING - SMOKING CESSATION 05/09/2014 CALOS SALEEM APRN Ot 611.72 05/17/2014 CALOS SALEEM APRN Ot 611.72 05/24/2014 REGINA DELONG APRN Ot 724.2 LUMBAGO 07/08/2014 DESIREE LYONS DO Ot 250.62 07/08/2014 DESIREE LYONS DO Ot 305.1 07/08/2014 LYONS DO, DESIREE K Ot 307.1 07/08/2014 LYONS DO, DESIREE K Ot 311 07/08/2014 LYONS DO, DESIREE K Ot 346.90 07/08/2014 LYONS DO, DESIREE K Ot 415.19 07/08/2014 LYONS DO, DESIREE K Ot 416.8 07/08/2014 LYONS DO, DESIREE K Ot 493.90 07/08/2014 LYONS DO, DESIREE K Ot 536.3 07/08/2014 LYONS DO, DESIREE K Ot 724.5 07/08/2014 LYONS DO, DESIREE K Ot V12.55 07/08/2014 LYONS DO, DESIREE K Ot V12.79 07/08/2014 LYONS DO, DESIREE K Ot V15.81 07/08/2014 LYONS DO, DESIREE K Ot V45.77 07/08/2014 LYONS DO, DESIREE K Ot V58.67 07/08/2014 LYONS DO, DESIREE K Ot V58.69 07/08/2014 LYONS DO, DESIREE K Ot 250.62 07/08/2014 LYONS DO, DESIREE K Ot 305.1 07/08/2014 LYONS DO, DESIREE K Ot 307.1 07/08/2014 LYONS DO, DESIREE K Ot 311 07/08/2014 LYONS DO, DESIREE K Ot 346.90 07/08/2014 LYONS DO, DESIREE K Ot 415.19 07/08/2014 LYONS DO, DESIREE K Ot 416.8 07/08/2014 LYONS DO, DESIREE K Ot 493.90 07/08/2014 LYONS DO, DESIREE K Ot 536.3 07/08/2014 LYONS DO, DESIREE K Ot 724.5 07/08/2014 LYONS DO, DESIREE K Ot V12.55 07/08/2014 LYONS DO, DESIREE K Ot V12.79 07/08/2014 LYONS DO, DESIREE K Ot V15.81 07/08/2014 LYONS DO, DESIREE K Ot V45.77 07/08/2014 LYONS DO, DESIREE K Ot V58.67 07/08/2014 LYONS DO, DESIREE K Ot V58.69 07/08/2014 LYONS DO, DESIREE K Ot 250.62 07/08/2014 LYONS DO, DESIREE K Ot 305.1 07/08/2014 LYONS DO, DESIREE K Ot 307.1 07/08/2014 LYONS DO, DESIREE K Ot 311 07/08/2014 LYONS DO, DESIREE K Ot 346.90 07/08/2014 LYONS DO, DESIREE K Ot 415.19 07/08/2014 LYONS DO, DESIREE K Ot 416.8 07/08/2014 LYONS DO, DESIREE K Ot 493.90 07/08/2014 LYONS DO, DESIREE K Ot 536.3 07/08/2014 LYONS DO, DESIREE K Ot 724.5 07/08/2014 LYONS DO, DESIREE K Ot V12.55 07/08/2014 LYONS DO, DESIREE K Ot V12.79 07/08/2014 LYONS DO, DESIREE K Ot V15.81 07/08/2014 LYONS DO, DESIREE K Ot V45.77 07/08/2014 LYONS DO, DESIREE K Ot V58.67 07/08/2014 LYONS DO, DESIREE K Ot V58.69 07/09/2014 LYONS DO, DESIREE K Ot 250.62 07/09/2014 LYONS DO, DESIREE K Ot 305.1 07/09/2014 LYONS DO, DESIREE K Ot 307.1 07/09/2014 LYONS DO, DESIREE K Ot 311 07/09/2014 LYONS DO, DESIREE K Ot 346.90 07/09/2014 LYONS DO, DESIREE K Ot 415.19 07/09/2014 LYONS DO, DESIREE K Ot 416.8 07/09/2014 LYONS DO, DESIREE K Ot 493.90 07/09/2014 LYONS DO, DESIREE K Ot 536.3 07/09/2014 LYONS DO, DESIREE K Ot 724.5 07/09/2014 LYONS DO, DESIREE K Ot V12.55 07/09/2014 LYONS DO, DESIREE K Ot V12.79 07/09/2014 LYONS DO, DESIREE K Ot V15.81 07/09/2014 LYONS DO, DESIREE K Ot V45.77 07/09/2014 LYONS DO, DESIREE K Ot V58.67 07/09/2014 LYONS DO, DESIREE K Ot V58.69 07/10/2014 LYONS DO, DESIREE K Ot 250.62 07/10/2014 LYONS DO, DESIREE K Ot 305.1 07/10/2014 LYONS DO, DESIREE K Ot 307.1 07/10/2014 LYONS DO, DESIREE K Ot 311 07/10/2014 LYONS DO, DESIREE K Ot 346.90 07/10/2014 LYONS DO, DESIREE K Ot 415.19 07/10/2014 LYONS DO, DESIREE K Ot 416.8 07/10/2014 LYONS DO, DESIREE K Ot 493.90 07/10/2014 LYONS DO, DESIREE K Ot 536.3 07/10/2014 LYONS DO, DESIREE K Ot 724.5 07/10/2014 LYONS DO, DESIREE K Ot V12.55 07/10/2014 LYONS DO, DESIREE K Ot V12.79 07/10/2014 LYONS DO, DESIREE K Ot V15.81 07/10/2014 LYONS DO, DESIREE K Ot V45.77 07/10/2014 LYONS DO, DESIREE K Ot V58.67 07/10/2014 LYONS DO, DESIREE K Ot V58.69 07/11/2014 LYONS DO, DESIREE K Ot 250.62 07/11/2014 LYONS DO, DESIREE K Ot 305.1 07/11/2014 LYONS DO, DESIREE K Ot 307.1 07/11/2014 LYONS DO, DESIREE K Ot 311 07/11/2014 LYONS DO, DESIREE K Ot 346.90 07/11/2014 LYONS DO, DESIREE K Ot 415.19 07/11/2014 LYONS DO, DESIREE K Ot 416.8 07/11/2014 LYONS DO, DESIREE K Ot 493.90 07/11/2014 LYONS DO, DESIREE K Ot 536.3 07/11/2014 LYONS DO, DESIREE K Ot 724.5 07/11/2014 LYONS DO, DESIREE K Ot V12.55 07/11/2014 LYONS DO, DESIREE K Ot V12.79 07/11/2014 LYONS DO, DESIREE K Ot V15.81 07/11/2014 LYONS DO, DESIREE K Ot V45.77 07/11/2014 LYONS DO, DESIREE K Ot V58.67 07/11/2014 LYONS DO, DESIREE K Ot V58.69 07/11/2014 LYONS DO, DESIREE K Ot 250.62 07/11/2014 LYONS DO, DESIREE K Ot 305.1 07/11/2014 LYONS DO, DESIREE K Ot 307.1 07/11/2014 LYONS DO, DESIREE K Ot 311 07/11/2014 LYONS DO, DESIREE K Ot 346.90 07/11/2014 LYONS DO, DESIREE K Ot 415.19 07/11/2014 LYONS DO, DESIREE K Ot 416.8 07/11/2014 LYONS DO, DESIREE K Ot 493.90 07/11/2014 LYONS DO, DESIREE K Ot 536.3 07/11/2014 LYONS DO, DESIREE K Ot 724.5 07/11/2014 LYONS DO, DESIREE K Ot V12.55 07/11/2014 LYONS DO, DESIREE K Ot V12.79 07/11/2014 LYONS DO, DESIREE K Ot V15.81 07/11/2014 LYONS DO, DESIREE K Ot V45.77 07/11/2014 LYONS DO, DESIREE K Ot V58.67 07/11/2014 LYONS DO, DESIREE K Ot V58.69 07/12/2014 HORACE HIGGINS MD 415.19 PULMONARY EMBOLUS 07/12/2014 HORACE HIGGINS MD 415.19 PULMONARY EMBOLUS 07/12/2014 LYONS DO, DESIREE K Ot 250.62 07/12/2014 LYONS DO, DESIREE K Ot 305.1 07/12/2014 LYONS DO, DESIREE K Ot 307.1 07/12/2014 LYONS DO, DESIREE K Ot 311 07/12/2014 LYONS DO, DESIREE K Ot 346.90 07/12/2014 LYONS DO, DESIREE K Ot 415.19 07/12/2014 LYONS DO, DESIREE K Ot 416.8 07/12/2014 LYONS DO, DESIREE K Ot 493.90 07/12/2014 LYONS DO, DESIREE K Ot 536.3 07/12/2014 LYONS DO, DESIREE K Ot 724.5 07/12/2014 LYONS DO, DESIREE K Ot V12.55 07/12/2014 LYONS DO, DESIREE K Ot V12.79 07/12/2014 LYONS DO, DESIREE K Ot V15.81 07/12/2014 LYONS DO, DESIREE K Ot V45.77 07/12/2014 LYONS DO, DESIREE K Ot V58.67 07/12/2014 LYONS DO, DESIREE K Ot V58.69 07/12/2014 LYONS DO, DESIREE K Ot 250.62 DIAB W NEURO MANIFEST, TYPE II OR UNSPEC 07/12/2014 LYONS DO, DESIREE K Ot 276.1 HYPOSMOLALITY 07/12/2014 SERENA LONG DESIREE Elaine Ot 305.1 TOBACCO USE DISORDER 07/12/2014 SERENA LONG DESIREE K Ot 307.1 ANOREXIA NERVOSA 07/12/2014 DESIREE LYONS DO Ot 311 DEPRESSIVE DISORDER NEC 07/12/2014 SERENA LONG DESIREE K Ot 346.90 MIGRAINE UNSPECIFIED W/O INTRACT MGRN W/ 07/12/2014 DESIREE LYONS DO Ot 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 07/12/2014 DESIREE LYONS DO Ot 416.8 CHR PULMON HEART DIS NEC 07/12/2014 SEREAN LONG DESIREE K Ot 493.90 ASTHMA, UNSPECIFIED 07/12/2014 DESIREE LYONS DO Ot 514 07/12/2014 DESIREE LYONS DO Ot 518.4 ACUTE LUNG EDEMA NOS 07/12/2014 DESIREE LYONS DO Ot 536.3 GASTROPARESIS 07/12/2014 SERENA LONG DESIREE K Ot 724.5 BACKACHE NOS 07/12/2014 DESIREE LYONS DO Ot V03.82 PROPHYLACTIC VACC AGAINST STREPTOCOCCUS 07/12/2014 DESIREE LYONS DO Ot V12.55 PERSONAL HISTORY OF PULMONARY EMBOLISM 07/12/2014 DESIREE LYONS DO Ot V12.79 PERSONAL HISTORY OTH SPEC DIGESTIVE SYST 07/12/2014 DESIREE LYONS DO Ot V15.81 HX OF PAST NONCOMPLIANCE 07/12/2014 DESIREE LYONS DO Ot V45.77 ACQRD ABSENCE OF GENITAL ORGANS 07/12/2014 DESIREE LYONS DO Ot V58.67 LONG-TERM (CURRENT) USE OF INSULIN 07/12/2014 DESIREE LYONS DO Ot V58.69 OTH MED,LT,CURRENT USE 07/18/2014 Ot 599.70 07/18/2014 Ot 789.04 07/18/2014 Ot 599.70 07/18/2014 Ot 789.04 07/18/2014 CALOS SALEEM APRN Ot 611.72 08/03/2014 Ot 038.9 SEPTICEMIA NOS 08/03/2014 Ot 250.60 DIAB W NEURO MANIFEST, TYPE II OR UNSPEC 08/03/2014 Ot 250.80 DIAB W OTH SPEC MANIFEST, TYPE II OR UNS 08/03/2014 Ot 276.2 ACIDOSIS 08/03/2014 Ot 285.9 ANEMIA NOS 08/03/2014 Ot 300.00 ANXIETY STATE NOS 08/03/2014 Ot 305.1 TOBACCO USE DISORDER 08/03/2014 Ot 307.1 ANOREXIA NERVOSA 08/03/2014 Ot 311 DEPRESSIVE DISORDER NEC 08/03/2014 Ot 346.90 MIGRAINE UNSPECIFIED W/O INTRACT MGRN W/ 08/03/2014 Ot 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 08/03/2014 Ot 463 ACUTE TONSILLITIS 08/03/2014 Ot 486 PNEUMONIA, ORGANISM NOS 08/03/2014 Ot 493.90 ASTHMA, UNSPECIFIED 08/03/2014 Ot 511.9 PLEURAL EFFUSION NOS 08/03/2014 Ot 536.3 GASTROPARESIS 08/03/2014 Ot 599.0 URIN TRACT INFECTION NOS 08/03/2014 Ot 724.5 BACKACHE NOS 08/03/2014 Ot 995.91 SEPSIS 08/03/2014 Ot V10.43 HX OF OVARIAN MALIGNANCY 08/03/2014 Ot V12.55 PERSONAL HISTORY OF PULMONARY EMBOLISM 08/03/2014 Ot V12.79 PERSONAL HISTORY OTH SPEC DIGESTIVE SYST 08/03/2014 Ot V45.77 ACQRD ABSENCE OF GENITAL ORGANS 08/03/2014 Ot V58.67 LONG-TERM (CURRENT) USE OF INSULIN 08/03/2014 Ot V58.69 OTH MED,LT,CURRENT USE 08/11/2014 HORACE HIGGINS MD 486 PNEUMONIA ORGANISM UNSPECIFIED 08/11/2014 HORACE HIGGINS MD 536.3 GASTROPARESIS 08/11/2014 HORACE HIGGINS MD 486 PNEUMONIA ORGANISM UNSPECIFIED 08/11/2014 HORACE HIGGINS MD 536.3 GASTROPARESIS 08/23/2014 Ot 415.19 08/23/2014 Ot 486 09/01/2014 SHABBIR URRUTIA, FUNMILAYO Henry Ot 250.00 09/01/2014 SHABBIR URRUTIA, FUNMILAYO Elaine Ot 275.42 09/01/2014 SHABBIR URRUTIA, FUNMILAYO Henry Ot 276.1 09/01/2014 SHABBIR URRUTIA, FUNMILAYO Henry Ot 285.9 09/01/2014 SHABBIR URRUTIA, FUNMILAYO Henry Ot 311 09/01/2014 SHABBIR URRUTIA, FUNMILAYO Henry Ot 338.29 09/01/2014 SHABBIR URRUTIA, FUNMILAYO Henry Ot 415.19 09/01/2014 SHABBIR URRUTIA, FUNMILAYO Henry Ot 462 09/01/2014 SHABBIR URRUTIA, FUNMILAYO Henry Ot 780.60 09/01/2014 FUNMILAYO SHEA MD Ot 787.01 09/01/2014 FUNMILAYO SHEA MD Ot 789.00 09/01/2014 FUNMILAYO SHEA MD Ot V58.61 09/01/2014 FUNMILAYO SHEA MD Ot V58.69 09/13/2014 RONALDO URRUTIA, HORACE 357.2 POLYNEUROPATHY IN DIABETES 09/25/2014 FUNMILAYO SHEA MD Ot 250.00 09/25/2014 FUNMILAYO SHEA MD Ot 275.42 09/25/2014 FUNMILAYO SHEA MD Ot 276.1 09/25/2014 FUNMILAYO SHEA MD Ot 285.9 09/25/2014 FUNMILAYO SHEA MD Ot 311 09/25/2014 FUNMILAYO SHEA MD Ot 338.29 09/25/2014 FUNMILAYO SHEA MD Ot 415.19 09/25/2014 FUNMILAYO SHEA MD Ot 462 09/25/2014 FUNMILAYO SHEA MD Ot 780.60 09/25/2014 FUNMILAYO SHEA MD Ot 787.01 09/25/2014 FUNMILAYO SHEA MD Ot 789.00 09/25/2014 FUNMILAYO SHEA MD Ot V58.61 09/25/2014 FUNMILAYO SHEA MD Ot V58.69 10/24/2014 FUNMILAYO SHEA MD Ot 250.00 DIAB RAMSES WO COMPL, TYPE II OR UNSPEC TY 10/24/2014 FUNMILAYO SHEA MD Ot 275.42 HYPERCALCEMIA 10/24/2014 FUNMILAYO SHEA MD Ot 276.1 HYPOSMOLALITY 10/24/2014 FUNMILAYO SHEA MD Ot 285.9 ANEMIA NOS 10/24/2014 FUNMILAYO SHEA MD Ot 311 DEPRESSIVE DISORDER NEC 10/24/2014 FUNMILAYO SHEA MD Ot 338.29 OTHER CHRONIC PAIN 10/24/2014 FUNMILAYO SHEA MD Ot 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 10/24/2014 FUNMILAYO SHEA MD Ot 462 ACUTE PHARYNGITIS 10/24/2014 FUNMILAYO SHEA MD Ot 780.60 FEVER, UNSPECIFIED 10/24/2014 FUNMILAYO SHEA MD Ot 787.01 NAUSEA WITH VOMITING 10/24/2014 FUNMILAYO SHEA MD Ot 789.00 ABDOMINAL PAIN, UNSPECIFIED SITE 10/24/2014 FUNMILAYO SHEA MD Ot V58.61 ANTICOAGULANTS,LT,CURRENT USE 10/24/2014 FUNMILAYO SHEA MD Ot V58.69 OTH MED,LT,CURRENT USE 11/30/2014 SHABBIR URRUTIA, FUNMILAYO K Ot 250.00 11/30/2014 SHABBIR URRUTIA, FUNMILAYO K Ot 275.42 11/30/2014 SHABBIR URRUTIA, FUNMILAYO K Ot 276.1 11/30/2014 SHABBIR URRUTIA, FUNMILAYO K Ot 285.9 11/30/2014 SHABBIR URRUTIA, FUNMILAYO K Ot 311 11/30/2014 SHABBIR URRUTIA, FUNMILAYO K Ot 338.29 11/30/2014 SHABBIR URRUTIA, FUNMILAYO Elaine Ot 415.19 11/30/2014 SHABBIR URRUTIA, FUNMILAYO Elaine Ot 462 11/30/2014 SHABBIR URRUTIA, FUNMILAYO K Ot 780.60 11/30/2014 SHABBIR URRUTIA, FUNMILAYO K Ot 787.01 11/30/2014 SHABBIR URRUTIA, FUNMILAYO K Ot 789.00 11/30/2014 SHABBIR URRUTIA, FUNMILAYO K Ot V58.61 11/30/2014 SHABBIR URRUTIA, FUNMILAYO K Ot V58.69 12/07/2014 SHABBIR URRUTIA, FUNMILAYO K Ot 250.00 12/07/2014 SHABBIR URRUTIA, FUNMILAYO K Ot 275.42 12/07/2014 SHABBIR URRUTIA, FUNMILAYO K Ot 276.1 12/07/2014 SHABBIR URRUTIA, FUNMILAYO K Ot 285.9 12/07/2014 SHABBIR URRUTIA, FUNMILAYO K Ot 311 12/07/2014 SHABBIR URRUTIA, FUNMILAYO K Ot 338.29 12/07/2014 SHABBIR URRUTIA, FUNMILAYO K Ot 415.19 12/07/2014 SHABBIR URRUTIA, FUNMILAYO K Ot 462 12/07/2014 SHABBIR URRUTIA, FUNMILAYO K Ot 780.60 12/07/2014 SHABBIR URRUTIA, FUNMILAYO K Ot 787.01 12/07/2014 SHABBIR URRUTIA, FUNMILAYO K Ot 789.00 12/07/2014 SHABBIR URRUTIA, FUNMILAYO K Ot V58.61 12/07/2014 SHABBIR URRUTIA, FUNMILAYO K Ot V58.69 12/08/2014 SHABBIR URRUTIA, FUNMILAYO K Ot 250.00 12/08/2014 SHABBIR URRUTIA, FUNMILAYO K Ot 275.42 12/08/2014 SHABBIR URRUTIA, FUNMILAYO K Ot 276.1 12/08/2014 SHABBIR URRUTIA, FUNMILAYO K Ot 285.9 12/08/2014 SHABBIR URRUTIA, FUNMILAYO K Ot 311 12/08/2014 SHABBIR URRUTIA, FUNMILAYO K Ot 338.29 12/08/2014 SHABBIR URRUTIA, FUNMILAYO K Ot 415.19 12/08/2014 SHABBIR URRUTIA, FUNMILAYO Elaine Ot 462 12/08/2014 SHABBIR URRUTIA, FUNMILAYO K Ot 780.60 12/08/2014 SHABBIR URRUTIA, FUNMILAYO K Ot 787.01 12/08/2014 SHABBIR URRUTIA, FUNMILAYO Elaine Ot 789.00 12/08/2014 SHABBIR URRUTIA, FUNMILAYO Henry Ot V58.61 12/08/2014 SHABBIR URRUTIA, FUNMILAYO Henry Ot V58.69 12/23/2014 JOSE ALFREDO WILEY Ot 250.00 DIAB RAMSES WO COMPL, TYPE II OR UNSPEC TY 12/23/2014 JOSE ALFREDO WILEY Ot 724.4 LUMBOSACRAL NEURITIS NOS 12/23/2014 JOSE ALFREDO WILEY Ot 729.5 PAIN IN LIMB 12/23/2014 JOSE ALFREDO WILEY Ot V12.51 HX-VENOUS THROMBOSIS EMBOLISM 12/30/2014 Ot 599.70 12/30/2014 Ot 789.04 12/30/2014 Ot 599.70 12/30/2014 Ot 789.04 12/30/2014 CALOS SALEEM APRN Ot 611.72 12/30/2014 Ot 415.19 12/30/2014 Ot 486 12/30/2014 SHABBIR URRUTIA, FUNMILAYO Henry Ot 250.00 12/30/2014 SHABBIR URRUTIA, FUNMILAYO Henry Ot 275.42 12/30/2014 SHABBIR URRUTIA, FUNMILAYO Henry Ot 276.1 12/30/2014 SHABBIR URRUTIA, FUNMILAYO Henry Ot 285.9 12/30/2014 SHABBIR URRUTIA, FUNMILAYO Elaine Ot 311 12/30/2014 SHABBIR URRUTIA, FUNMILAYO Henry Ot 338.29 12/30/2014 SHABBIR URRUTIA, FUNMILAYO Henry Ot 415.19 12/30/2014 SHABBIR URRUTIA, FUNMILAYO Elaine Ot 462 12/30/2014 SHABBIR URRUTIA, FUNMILAYO Elaine Ot 780.60 12/30/2014 SHABBIR URRUTIA, FUNMILAYO Henry Ot 787.01 12/30/2014 SHABBIR URRUTIA, FUNMILAYO Henry Ot 789.00 12/30/2014 SHABBIR URRUTIA, FUNMILAYO Elaine Ot V58.61 12/30/2014 SHABBIR URRUTIA, FUNMILAYO Elaine Ot V58.69 02/07/2015 SHABBIR URRUTIA, FUNMILAYO Henry Ot 250.00 02/07/2015 SHABBIR URRUTIA, FUNMILAYO Henry Ot 275.42 02/07/2015 SHABBIR URRUTIA, FUNMILAYO Henry Ot 276.1 02/07/2015 SHABBIR URRUTIA, FUNMILAYO Henry Ot 285.9 02/07/2015 SHABBIR URRUTIA, FUNMILAYO Elaine Ot 311 02/07/2015 SHABBIR URRUTIA, FUNMILAYO Henry Ot 338.29 02/07/2015 SHABBIR URRUTIA, FUNMILAYO Henry Ot 415.19 02/07/2015 SHABBIR URRUTIA, FUNMILAYO Henry Ot 462 02/07/2015 SHABBIR URRUTIA, FUNMILAYO Henry Ot 780.60 02/07/2015 SHABBIR URRUTIA, FUNMILAYO Henry Ot 787.01 02/07/2015 SHABBIR URRUTIA, FUNMILAYO Henry Ot 789.00 02/07/2015 SHABBIR URRUTIA, FUNMILAYO Henry Ot V58.61 02/07/2015 SHABBIR URRUTIA, FUNMILAYO Henry Ot V58.69 02/09/2015 HORACE HIGGINS MD Ot 536.3 02/17/2015 SHABBIR URRUTIA, FUNMILAYO Henry Ot 250.00 02/17/2015 SHABBIR URRUTIA, FUNMILAYO Henry Ot 275.42 02/17/2015 SHABBIR URRUTIA, FUNMILAYO Henry Ot 276.1 02/17/2015 SHABBIR URRUTIA, FUNMILAYO Henry Ot 285.9 02/17/2015 SHABBIR URRUTIA, FUNMILAYO Henry Ot 311 02/17/2015 SHABBIR URRUTIA, FUNMILAYO Henry Ot 338.29 02/17/2015 SHABBIR URRUTIA, FUNMILAYO Henry Ot 415.19 02/17/2015 SHABBIR URRUTIA, FUNMILAYO Henry Ot 462 02/17/2015 SHABBIR URRUTIA, FUNMILAYO Henry Ot 780.60 02/17/2015 SHABBIR URRUTIA, FUNMILAYO Henry Ot 787.01 02/17/2015 SHABBIR URRUTIA, FUNMILAYO Henry Ot 789.00 02/17/2015 SHABBIR URRUTIA, FUNMILAYO Henry Ot V58.61 02/17/2015 SHABBIR URRUTIA, FUNMILAYO Henry Ot V58.69 02/20/2015 HORACE HIGGINS MD Ot 536.3 02/20/2015 JOE VEGA MD Ot 724.2 LUMBAGO 02/20/2015 JOE VEGA MD Ot 724.4 LUMBOSACRAL NEURITIS NOS 02/22/2015 SHABBIR URRUTIA, FUNMILAYO Henry Ot 250.00 DIAB RAMSES WO COMPL, TYPE II OR UNSPEC TY 02/22/2015 FUNMILAYO SHEA MD Ot 275.42 HYPERCALCEMIA 02/22/2015 SHABBIR URRUTIA, FUNMILAYO Henry Ot 276.1 HYPOSMOLALITY 02/22/2015 FUNMILAYO SHEA MD Ot 285.9 ANEMIA NOS 02/22/2015 SHABBIR URRUTIA, FUNMILAYO Henry Ot 311 DEPRESSIVE DISORDER NEC 02/22/2015 FUNMILAYO SHEA MD Ot 338.29 OTHER CHRONIC PAIN 02/22/2015 FUNMILAYO SHEA MD Ot 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 02/22/2015 FUNMILAYO SHEA MD Ot 462 ACUTE PHARYNGITIS 02/22/2015 FUNMILAYO SHEA MD K Ot 780.60 FEVER, UNSPECIFIED 02/22/2015 SHABBIR URRUTIA, FUNMILAYO Henry Ot 787.01 NAUSEA WITH VOMITING 02/22/2015 SHABBIR URRUTIA, FUNMILAYO Henry Ot 789.00 ABDOMINAL PAIN, UNSPECIFIED SITE 02/22/2015 SHABBIR URRUTIA, FUNMILAYO Henry Ot V58.61 ANTICOAGULANTS,LT,CURRENT USE 02/22/2015 SHABBIR URRUTIA, FUNMILAYO Henry Ot V58.69 OTH MED,LT,CURRENT USE 03/23/2015 REGINA DELONG SPECIAL SERVICES DIRECTOR Ot F17.210 NICOTINE DEPENDENCE, CIGARETTES, UNCOMPL 03/23/2015 REGINA DELONG SPECIAL SERVICES DIRECTOR Ot G89.29 OTHER CHRONIC PAIN 03/23/2015 REGINA DELONG SPECIAL SERVICES DIRECTOR Ot M54.9 DORSALGIA, UNSPECIFIED 03/23/2015 REGINA DELONG SPECIAL SERVICES DIRECTOR Ot Z79.891 CORRECTION (CURRENT) USE OF OPIATE ANALGE 04/26/2015 RONALDO URRUTIA, OHRACE Alberto Ot M54.10 05/05/2015 RONALDO URRUTIA, HORACE Alberto Ot Z12.31 05/09/2015 RONALDO URRUTIA, HORACE Alberto Ot M54.10 05/12/2015 SHABBIR URRUTIA, FUNMILAYO Henry Ot D64.9 05/12/2015 SHABBIR URRUTIA, FUNMILAYO Henry Ot E11.9 05/12/2015 SHABBIR URRUTIA, FUNMILAYO Henry Ot E83.52 05/12/2015 SHABBIR URRUTIA, FUNMILAYO Henry Ot F32.9 05/12/2015 SHABBIR URRUTIA, FUNMILAYO Henry Ot I26.99 05/12/2015 SHABBIR URRUTIA, FUNMILAYO Henry Ot Z79.01 05/12/2015 SHABBIR URRUTIA, FUNMILAYO Henry Ot Z79.899 05/18/2015 RONALDO URRUTIA, HORACE Alberto Ot Z12.31 05/29/2015 SHABBIR URRUTIA, FUNMILAYO Henry Ot D64.9 05/29/2015 SHABBIR URRUTIA, FUNMILAYO Henry Ot E11.9 05/29/2015 SHABBIR URRUTIA, FUNMILAYO Henry Ot E83.52 05/29/2015 SHABBIR URRUTIA, FUNMILAYO Henry Ot F32.9 05/29/2015 SHABBIR URRUTIA, FUNMILAYO Henry Ot I26.99 05/29/2015 SHABBIR URRUTIA, FUNMILAYO Henry Ot Z79.01 05/29/2015 SHABBIR URRUTIA, FUNMILAYO Henry Ot Z79.899 2015 SHABBIR URRUTIA, FUNMILAYO Henry Ot D64.9 ANEMIA, UNSPECIFIED 2015 SHABBIR URRUTIA, FUNMILAYO Henry Ot E11.9 TYPE 2 DIABETES MELLITUS WITHOUT COMPLIC 2015 SHABBIR URRUTIA, FUNMILAYO Henry Ot E83.52 HYPERCALCEMIA 2015 SHABBIR URRUTIA, FUNMILAYO Henry Ot F32.9 MAJOR DEPRESSIVE DISORDER, SINGLE EPISOD 2015 SHABBIR URRUTIA, FUNMILAYO Henry Ot I26.99 OTHER PULMONARY EMBOLISM WITHOUT ACUTE C 2015 SHABBIR URRUTIA, FUNMILAYO Henry Ot Z79.01 PARCEL POST WEIGHER (CURRENT) USE OF ANTICOAGULANT 2015 SHABBIR URRUTIA, FUNMILAYO Elaine Ot Z79.899 OTHER CORRECTION (CURRENT) DRUG THERAPY 06/08/2015 SHABBIR URRUTIA, FUNMILAYO Henry Ot D64.9 06/08/2015 SHABBIR URRUTIA, FUNMILAYO Henry Ot E11.9 06/08/2015 SHABBIR URRUTIA, FUNMILAYO Henry Ot E83.52 06/08/2015 SHABBIR URRUTIA, FUNMILAYO Henry Ot F32.9 06/08/2015 SHABBIR URRUTIA, FUNMILAYO Henry Ot I26.99 06/08/2015 SHABBIR URRUTIA, FUNMILAYO Henry Ot Z79.01 06/08/2015 SHABBIR URRUTIA, FUNMILAYO Henry Ot Z79.899 06/09/2015 REGINA DELONG SPECIAL SERVICES DIRECTOR Ot F17.210 NICOTINE DEPENDENCE, CIGARETTES, UNCOMPL 06/09/2015 REGINA DELONG SPECIAL SERVICES DIRECTOR Ot J40 BRONCHITIS, NOT SPECIFIED ACUTE OR CH 06/09/2015 REGINA DELONG SPECIAL SERVICES DIRECTOR Ot R07.81 PLEURODYNIA 06/09/2015 Ot 599.70 06/09/2015 Ot 789.04 06/09/2015 Ot 599.70 06/09/2015 Ot 789.04 06/09/2015 CALOS SALEEM SPECIAL SERVICES DIRECTOR Ot 611.72 06/09/2015 Ot 415.19 06/09/2015 Ot 486 06/09/2015 RONALDO URRUTIA, HORACE Alberto Ot 536.3 06/09/2015 RONALDO URRUTIA, HORACE Alberto Ot M54.10 06/09/2015 RONALDO URRUTIA, HORACE Alberto Ot Z12.31 06/09/2015 SHABBIR URRUTIA, FUNMILAYO Henry Ot D64.9 06/09/2015 SHABBIR URRUTIA, FUNMILAYO Henry Ot E11.9 06/09/2015 SHABBIR URRUTIA, FUNMILAYO Henry Ot F17.210 06/09/2015 SHABBIR URRUTIA, FUNMILAYO Henry Ot F32.9 06/09/2015 SHABBIR URRUTIA, FUNMILAYO Henry Ot I27.82 06/09/2015 SHABBIR URRUTIA, FUNMILAYO K Ot Z79.01 06/09/2015 SHABBIR URRUTIA, FUNMILAYO Henry Ot Z79.899 07/14/2015 ROQUE URRUTIA, MARCUS Judd Ot R10.84 GENERALIZED ABDOMINAL PAIN 07/14/2015 ROQUE URRUTIA, MARCUS Judd Ot Z53.21 PROC/TRTMT NOT CRD OUT D/T PT LV BEF SEE 08/04/2015 SHABBIR URRUTIA, FUNMILAYO K Ot D64.9 08/04/2015 SHABBIR URRUTIA, FUNMILAYO K Ot E11.9 08/04/2015 SHABBIR URRUTIA, FUNMILAYO K Ot F17.210 08/04/2015 SHABBIR URRUTIA, FUNMILAYO K Ot F32.9 08/04/2015 SHABBIR URRUTIA, FUNMILAYO K Ot I27.82 08/04/2015 SHABBIR URRUTIA, FUNMILAYO Henry Ot Z79.01 08/04/2015 SHABBIR URRUTIA, FUNMILAYO Henry Ot Z79.899 08/14/2015 SHABBIR URRUTIA, FUNMILAYO Henry Ot D64.9 08/14/2015 SHABBIR URRUTIA, FUNMILAYO K Ot E11.9 08/14/2015 SHABBIR URRUTIA, FUNMILAYO Elaine Ot F17.210 08/14/2015 SHABBIR URRUTIA, FUNMILAYO Henry Ot F32.9 08/14/2015 SHABBIR URRUTIA, FUNMILAYO Henry Ot I27.82 08/14/2015 SHABBIR URRUTIA, FUNMILAYO Henry Ot Z79.01 08/14/2015 SHABBIR URRUTIA, FUNMILAYO Henry Ot Z79.899 08/14/2015 ROQUE URRUTIA, MARCUS Judd Ot E11.65 TYPE 2 DIABETES MELLITUS WITH HYPERGLYCE 08/14/2015 ROQUE URRUTIA, MARUCS Judd Ot F17.210 NICOTINE DEPENDENCE, CIGARETTES, UNCOMPL 08/14/2015 ROQUE URRUTIA, MARCUS Judd Ot G89.29 OTHER CHRONIC PAIN 08/14/2015 ROQUE URRUTIA, MARCUS Judd Ot K59.00 CONSTIPATION, UNSPECIFIED 08/14/2015 MARCUS NEVAREZ MD Ot M54.16 RADICULOPATHY, LUMBAR REGION 08/14/2015 MARCUS NEVAREZ MD, Ot R10.32 LEFT LOWER QUADRANT PAIN 08/14/2015 MARCUS NEVAREZ MD, Ot T40.2X5A ADVERSE EFFECT OF OTHER OPIOIDS, INITIAL 08/14/2015 ROQUE URRUTIA, MARCUS Judd Ot Z79.4 PARCEL POST WEIGHER (CURRENT) USE OF INSULIN 08/14/2015 ROQUE URRUTIA, MARCUS Judd Ot Z79.891 PARCEL POST WEIGHER (CURRENT) USE OF OPIATE ANALGE 08/16/2015 ROQUE URRUTIA, MARCUS T Ot E11.65 08/16/2015 ROQUE URRUTIA, MARCUS T Ot F17.210 08/16/2015 ROQUE URRUTIA, MARCUS T Ot G89.29 08/16/2015 ROQUE URRUTIA, MARCUS Judd Ot K59.00 08/16/2015 ROQUE URRUTIA, MARCUS T Ot M54.16 08/16/2015 ROQUE URRUTIA, MARCUS Judd Ot R10.32 08/16/2015 ROQUE URRUTIA, MARCUS Judd Ot T40.2X5A 08/16/2015 ROQUE URRUTIA, MARCUS Judd Ot Z79.4 08/16/2015 ROQUE URRUTIA, MARCUS Judd Ot Z79.891 09/05/2015 FUNMILAYO SHEA MD, Ot D64.9 ANEMIA, UNSPECIFIED 09/05/2015 FUNMILAYO SHEA MD, Ot E11.9 TYPE 2 DIABETES MELLITUS WITHOUT COMPLIC 09/05/2015 FUNMILAYO SHEA MD Ot F17.210 NICOTINE DEPENDENCE, CIGARETTES, UNCOMPL 09/05/2015 SHABBIR URRUTIA, FUNMILAYO Henry Ot F32.9 MAJOR DEPRESSIVE DISORDER, SINGLE EPISOD 09/05/2015 SHABBIR URRUTIA, FUNMILAYO Henry Ot 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 09/05/2015 FUNMILAYO SHEA MD Ot Z79.01 PARCEL POST WEIGHER (CURRENT) USE OF ANTICOAGULANT 09/05/2015 SHABBIR URRUTIA, FUNMILAYO Henry Ot Z79.899 OTHER CORRECTION (CURRENT) DRUG THERAPY 09/07/2015 FUNMILAYO SHEA MD, Ot D64.9 09/07/2015 FUNMILAYO SHEA MD, Ot E11.9 09/07/2015 FUNMILAYO SHEA MD Ot F17.210 09/07/2015 FUNMILAYO SHEA MD Ot F32.9 09/07/2015 FUNMILAYO SHEA MD Ot I27.82 09/07/2015 FUNMILAYO SHEA MD Ot Z79.01 09/07/2015 FUNMILAYO SHEA MD Ot Z79.899 10/16/2015 FUNMILAYO SHEA MD, Ot D64.9 ANEMIA, UNSPECIFIED 10/16/2015 FUNMILAYO SHEA MD Ot E11.9 TYPE 2 DIABETES MELLITUS WITHOUT COMPLIC 10/16/2015 FUNMILAYO SHEA MD Ot F17.210 NICOTINE DEPENDENCE, CIGARETTES, UNCOMPL 10/16/2015 FUNMILAYO SHEA MD Ot F32.9 MAJOR DEPRESSIVE DISORDER, SINGLE EPISOD 10/16/2015 FUNMILAYO SHEA MD Ot 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 10/16/2015 FUNMILAYO SHEA MD Ot Z79.01 PARCEL POST WEIGHER (CURRENT) USE OF ANTICOAGULANT 10/16/2015 FUNMILAYO SHEA MD Ot Z79.899 OTHER PARCEL POST WEIGHER (CURRENT) DRUG THERAPY 11/03/2015 FUNMILAYO SHEA MD Ot D64.9 ANEMIA, UNSPECIFIED 11/03/2015 FUNMILAYO SHEA MD Ot E11.9 TYPE 2 DIABETES MELLITUS WITHOUT COMPLIC 11/03/2015 FUNMILAYO SHEA MD Ot F17.210 NICOTINE DEPENDENCE, CIGARETTES, UNCOMPL 11/03/2015 FUNMILAYO SHEA MD, Ot F32.9 MAJOR DEPRESSIVE DISORDER, SINGLE EPISOD 11/03/2015 FUNMILAYO SHEA MD Ot 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 11/03/2015 FUNMILAYO SHEA MD Ot Z79.01 PARCEL POST WEIGHER (CURRENT) USE OF ANTICOAGULANT 11/03/2015 FUNMILAYO SHEA MD Ot Z79.899 OTHER PARCEL POST WEIGHER (CURRENT) DRUG THERAPY 11/24/2015 FUNMILAYO SHEA MD Ot 250.00 DIAB RAMSES WO COMPL, TYPE II OR UNSPEC TY 11/24/2015 FUNMILAYO SHEA MD Ot 275.42 HYPERCALCEMIA 11/24/2015 FUNMILAYO SHEA MD Ot 276.1 HYPOSMOLALITY 11/24/2015 FUNMILAYO SHEA MD Ot 285.9 ANEMIA NOS 11/24/2015 FUNMILAYO SHEA MD Ot 311 DEPRESSIVE DISORDER NEC 11/24/2015 FUNMILAYO SHEA MD Ot 338.29 OTHER CHRONIC PAIN 11/24/2015 FUNMILAYO SHEA MD Ot 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 11/24/2015 FUNMILAYO SHEA MD Ot 462 ACUTE PHARYNGITIS 11/24/2015 FUNMILAYO SHEA MD Ot 780.60 FEVER, UNSPECIFIED 11/24/2015 FUNMILAYO SHEA MD Ot 787.01 NAUSEA WITH VOMITING 11/24/2015 FUNMILAYO SHEA MD Ot 789.00 ABDOMINAL PAIN, UNSPECIFIED SITE 11/24/2015 FUNMILAYO SHEA MD Ot V58.61 ANTICOAGULANTS,LT,CURRENT USE 11/24/2015 FUNMILAYO SHEA MD Ot V58.69 OTH MED,LT,CURRENT USE 12/05/2015 FUNMILAYO SHEA MD Ot D64.9 ANEMIA, UNSPECIFIED 12/05/2015 FUNMILAYO SHEA MD Ot E11.9 TYPE 2 DIABETES MELLITUS WITHOUT COMPLIC 12/05/2015 FUNMILAYO SHEA MD Ot F17.210 NICOTINE DEPENDENCE, CIGARETTES, UNCOMPL 12/05/2015 FUNMILAYO SHEA MD Ot F32.9 MAJOR DEPRESSIVE DISORDER, SINGLE EPISOD 12/05/2015 FUNMILAYO SHEA MD Ot 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 12/05/2015 FUNMILAYO SHEA MD Ot Z79.01 PARCEL POST WEIGHER (CURRENT) USE OF ANTICOAGULANT 12/05/2015 FUNMILAYO SHEA MD Ot Z79.899 OTHER PARCEL POST WEIGHER (CURRENT) DRUG THERAPY 12/07/2015 FUNMILAYO SHEA MD, Ot D64.9 ANEMIA, UNSPECIFIED 12/07/2015 FUNMILAYO SHEA MD Ot E11.9 TYPE 2 DIABETES MELLITUS WITHOUT COMPLIC 12/07/2015 FUNMILAYO SHEA MD Ot F17.210 NICOTINE DEPENDENCE, CIGARETTES, UNCOMPL 12/07/2015 FUNMILAYO SHEA MD Ot F32.9 MAJOR DEPRESSIVE DISORDER, SINGLE EPISOD 12/07/2015 FUNMILAYO SHEA MD Ot 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 12/07/2015 FUNMILAYO SHEA MD Ot Z79.01 PARCEL POST WEIGHER (CURRENT) USE OF ANTICOAGULANT 12/07/2015 FUNMILAYO SHEA MD Ot Z79.899 OTHER CORRECTION (CURRENT) DRUG THERAPY 12/07/2015 FUNMILAYO SHEA MD, Ot D64.9 ANEMIA, UNSPECIFIED 12/07/2015 FUNMILAYO SHEA MD Ot E11.9 TYPE 2 DIABETES MELLITUS WITHOUT COMPLIC 12/07/2015 FUNMILAYO SHEA MD Ot F17.210 NICOTINE DEPENDENCE, CIGARETTES, UNCOMPL 12/07/2015 FUNMILAYO SHEA MD Ot F32.9 MAJOR DEPRESSIVE DISORDER, SINGLE EPISOD 12/07/2015 FUNMILAYO SHEA MD Ot 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 12/07/2015 FUNMILAYO SHEA MD Ot Z79.01 PARCEL POST WEIGHER (CURRENT) USE OF ANTICOAGULANT 12/07/2015 FUNMILAYO SHEA MD Ot Z79.899 OTHER PARCEL POST WEIGHER (CURRENT) DRUG THERAPY 01/16/2016 FUNMILAYO SHEA MD Ot D64.9 ANEMIA, UNSPECIFIED 01/16/2016 FUNMILAYO SHEA MD Ot E11.9 TYPE 2 DIABETES MELLITUS WITHOUT COMPLIC 01/16/2016 FUNMILAYO SHEA MD Ot F17.210 NICOTINE DEPENDENCE, CIGARETTES, UNCOMPL 01/16/2016 FUNMILAYO SHEA MD Ot F32.9 MAJOR DEPRESSIVE DISORDER, SINGLE EPISOD 01/16/2016 FUNMILAYO SHEA MD Ot 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 01/16/2016 FUNMILAYO SHEA MD Ot Z79.01 PARCEL POST WEIGHER (CURRENT) USE OF ANTICOAGULANT 01/16/2016 FUNMILAYO SHEA MD Ot Z79.899 OTHER CORRECTION (CURRENT) DRUG THERAPY 01/25/2016 FUNMILAYO SHEA MD Ot D64.9 ANEMIA, UNSPECIFIED 01/25/2016 FUNMILAYO SHEA MD Ot E11.9 TYPE 2 DIABETES MELLITUS WITHOUT COMPLIC 01/25/2016 FUNMILAYO SHEA MD Ot F17.210 NICOTINE DEPENDENCE, CIGARETTES, UNCOMPL 01/25/2016 FUNMILAYO SHEA MD, Ot F32.9 MAJOR DEPRESSIVE DISORDER, SINGLE EPISOD 01/25/2016 FUNMILAYO SHEA MD Ot 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 01/25/2016 FUNMILAYO SHEA MD Ot Z79.01 CORRECTION (CURRENT) USE OF ANTICOAGULANT 01/25/2016 FUNMILAYO SHEA MD Ot Z79.899 OTHER PARCEL POST WEIGHER (CURRENT) DRUG THERAPY 02/26/2016 FUNMILAYO SHEA MD, Ot D64.9 ANEMIA, UNSPECIFIED 02/26/2016 FUNMILAYO SHEA MD Ot E11.9 TYPE 2 DIABETES MELLITUS WITHOUT COMPLIC 02/26/2016 FUNMILAYO SHEA MD Ot F17.210 NICOTINE DEPENDENCE, CIGARETTES, UNCOMPL 02/26/2016 FUNMILAYO SHEA MD, Ot F32.9 MAJOR DEPRESSIVE DISORDER, SINGLE EPISOD 02/26/2016 FUNMILAYO SHEA MD Ot 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 02/26/2016 FUNMILAYO SHEA MD Ot Z79.01 CORRECTION (CURRENT) USE OF ANTICOAGULANT 02/26/2016 FUNMILAYO SHEA MD Ot Z79.899 OTHER CORRECTION (CURRENT) DRUG THERAPY 03/05/2016 FUNMILAYO SHEA MD Ot D64.9 ANEMIA, UNSPECIFIED 03/05/2016 FUNMILAYO SHEA MD Ot E11.9 TYPE 2 DIABETES MELLITUS WITHOUT COMPLIC 03/05/2016 FUNMILAYO SHEA MD Ot F17.210 NICOTINE DEPENDENCE, CIGARETTES, UNCOMPL 03/05/2016 FUNMILAYO SHEA MD Ot F32.9 MAJOR DEPRESSIVE DISORDER, SINGLE EPISOD 03/05/2016 FUNMILAYO SHEA MD Ot 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 03/05/2016 FUNMILAYO SHEA MD Ot Z79.01 PARCEL POST WEIGHER (CURRENT) USE OF ANTICOAGULANT 03/05/2016 FUNMILAYO SHEA MD, Ot Z79.899 OTHER CORRECTION (CURRENT) DRUG THERAPY 04/15/2016 Ot 599.70 HEMATURIA, UNSPECIFIED 04/15/2016 Ot 789.04 ABDOMINAL PAIN, LEFT LOWER QUADRANT 04/15/2016 Ot 599.70 HEMATURIA, UNSPECIFIED 04/15/2016 Ot 789.04 ABDOMINAL PAIN, LEFT LOWER QUADRANT 04/15/2016 CALOS SALEEM SPECIAL SERVICES DIRECTOR Ot 611.72 LUMP OR MASS IN BREAST 04/15/2016 Ot 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 04/15/2016 Ot 486 PNEUMONIA, ORGANISM NOS 04/15/2016 HORACE HIGGINS MD Ot 536.3 GASTROPARESIS 04/15/2016 HORACE HIGGINS MD Ot M54.10 RADICULOPATHY, SITE UNSPECIFIED 04/15/2016 HORACE HIGGINS MD Ot Z12.31 ENCNTR SCREEN MAMMOGRAM FOR MALIGNANT NE 04/15/2016 FUNMILAYO SHEA MD Ot D64.9 ANEMIA, UNSPECIFIED 04/15/2016 FUNMILAYO SHEA MD Ot E11.9 TYPE 2 DIABETES MELLITUS WITHOUT COMPLIC 04/15/2016 FUNMILAYO SHEA MD Ot F17.210 NICOTINE DEPENDENCE, CIGARETTES, UNCOMPL 04/15/2016 FUNMILAYO SHEA MD Ot F32.9 MAJOR DEPRESSIVE DISORDER, SINGLE EPISOD 04/15/2016 FUNMILAYO SHEA MD Ot 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 04/15/2016 FUNMILAYO SHEA MD Ot Z79.01 PARCEL POST WEIGHER (CURRENT) USE OF ANTICOAGULANT 04/15/2016 FUNMILAYO SHEA MD Ot Z79.899 OTHER PARCEL POST WEIGHER (CURRENT) DRUG THERAPY 04/15/2016 HORACE HIGGINS MD Ot Z12.31 ENCNTR SCREEN MAMMOGRAM FOR MALIGNANT NE 04/16/2016 HORACE HIGGINS MD Ot Z12.31 ENCNTR SCREEN MAMMOGRAM FOR MALIGNANT NE 04/16/2016 FUNMILAYO SHEA MD Ot D64.9 ANEMIA, UNSPECIFIED 04/16/2016 FUNMILAYO SHEA MD Ot E11.9 TYPE 2 DIABETES MELLITUS WITHOUT COMPLIC 04/16/2016 FUNMILAYO SHEA MD Ot F17.210 NICOTINE DEPENDENCE, CIGARETTES, UNCOMPL 04/16/2016 FUNMILAYO SHEA MD Ot F32.9 MAJOR DEPRESSIVE DISORDER, SINGLE EPISOD 04/16/2016 FUNMILAYO SHEA MD Ot 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 04/16/2016 FUNMILAYO SHEA MD Ot Z79.01 PARCEL POST WEIGHER (CURRENT) USE OF ANTICOAGULANT 04/16/2016 FUNMILAYO SHEA MD Ot Z79.899 OTHER PARCEL POST WEIGHER (CURRENT) DRUG THERAPY 04/21/2016 HORACE HIGGINS MD, Ot Z12.31 ENCNTR SCREEN MAMMOGRAM FOR MALIGNANT NE 04/29/2016 FUNMILAYO SHEA MD Ot D64.9 ANEMIA, UNSPECIFIED 04/29/2016 FUNMILAYO SHEA MD Ot E11.9 TYPE 2 DIABETES MELLITUS WITHOUT COMPLIC 04/29/2016 FUNMILAYO SHEA MD Ot F17.210 NICOTINE DEPENDENCE, CIGARETTES, UNCOMPL 04/29/2016 FUNMILAYO SHEA MD, Ot F32.9 MAJOR DEPRESSIVE DISORDER, SINGLE EPISOD 04/29/2016 FUNMILAYO SHEA MD Ot 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 04/29/2016 FUNMILAYO SHEA MD Ot Z79.01 PARCEL POST WEIGHER (CURRENT) USE OF ANTICOAGULANT 04/29/2016 FUNMILAYO SHEA MD Ot Z79.899 OTHER CORRECTION (CURRENT) DRUG THERAPY 05/08/2016 HORACE HIGGINS MD Ot Z12.31 ENCNTR SCREEN MAMMOGRAM FOR MALIGNANT NE 05/15/2016 HORACE HIGGINS MD, Ot Z12.31 ENCNTR SCREEN MAMMOGRAM FOR MALIGNANT NE 06/02/2016 FUNMILAYO SHEA MD Ot D64.9 ANEMIA, UNSPECIFIED 06/02/2016 FUNMILAYO SHEA MD Ot E11.9 TYPE 2 DIABETES MELLITUS WITHOUT COMPLIC 06/02/2016 FUNMILAYO SHEA MD Ot F17.210 NICOTINE DEPENDENCE, CIGARETTES, UNCOMPL 06/02/2016 FUNMILAYO SHEA MD Ot F32.9 MAJOR DEPRESSIVE DISORDER, SINGLE EPISOD 06/02/2016 FUNMILAYO SHEA MD Ot 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 06/02/2016 FUNMILAYO SHEA MD Ot Z79.01 CORRECTION (CURRENT) USE OF ANTICOAGULANT 06/02/2016 FUNMILAYO SHEA MD Ot Z79.899 OTHER PARCEL POST WEIGHER (CURRENT) DRUG THERAPY 2016 Ot 599.70 HEMATURIA, UNSPECIFIED 2016 Ot 789.04 ABDOMINAL PAIN, LEFT LOWER QUADRANT 2016 Ot 599.70 HEMATURIA, UNSPECIFIED 2016 Ot 789.04 ABDOMINAL PAIN, LEFT LOWER QUADRANT 2016 CALOS SALEEM APRN Ot 611.72 LUMP OR MASS IN BREAST 2016 Ot 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 2016 Ot 486 PNEUMONIA, ORGANISM NOS 2016 HORACE HIGGINS MD Ot 536.3 GASTROPARESIS 2016 HORACE HIGGINS MD Ot M54.10 RADICULOPATHY, SITE UNSPECIFIED 2016 HORACE HIGGINS MD Ot Z12.31 ENCNTR SCREEN MAMMOGRAM FOR MALIGNANT NE 2016 HORACE HIGGINS MD, Ot Z12.31 ENCNTR SCREEN MAMMOGRAM FOR MALIGNANT NE 2016 FUNMILAYO SHEA MD Ot D64.9 ANEMIA, UNSPECIFIED 2016 FUNMILAYO SHEA MD Ot E11.9 TYPE 2 DIABETES MELLITUS WITHOUT COMPLIC 2016 FUNMILAYO SHEA MD Ot F17.210 NICOTINE DEPENDENCE, CIGARETTES, UNCOMPL 2016 FUNMILAYO SHEA MD Ot F32.9 MAJOR DEPRESSIVE DISORDER, SINGLE EPISOD 2016 FUNMILAYO SHEA MD Ot 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 2016 FUNMILAYO SHEA MD Ot Z79.01 CORRECTION (CURRENT) USE OF ANTICOAGULANT 2016 FUNMILAYO SHEA MD Ot Z79.899 OTHER PARCEL POST WEIGHER (CURRENT) DRUG THERAPY 06/07/2016 HORACE HIGGINS MD Ot R10.33 PERIUMBILICAL PAIN 06/11/2016 FUNMILAYO SHEA MD Ot D64.9 ANEMIA, UNSPECIFIED 06/11/2016 FUNMILAYO SHEA MD Ot E11.9 TYPE 2 DIABETES MELLITUS WITHOUT COMPLIC 06/11/2016 FUNMILAYO SHEA MD Ot F17.210 NICOTINE DEPENDENCE, CIGARETTES, UNCOMPL 06/11/2016 FUNMILAYO SHEA MD Ot F32.9 MAJOR DEPRESSIVE DISORDER, SINGLE EPISOD 06/11/2016 FUNMILAYO SHEA MD Ot 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 06/11/2016 FUNMILAYO SHEA MD Ot Z79.01 CORRECTION (CURRENT) USE OF ANTICOAGULANT 06/11/2016 FUNMILAYO SHEA MD Ot Z79.899 OTHER PARCEL POST WEIGHER (CURRENT) DRUG THERAPY 07/04/2016 HORACE HIGGINS MD Ot R10.33 PERIUMBILICAL PAIN 07/17/2016 SHABBIR URRUTIA FUNMILAYO Elaine Ot D64.9 ANEMIA, UNSPECIFIED 07/17/2016 FUNMILAYO SHEA MD Ot E11.9 TYPE 2 DIABETES MELLITUS WITHOUT COMPLIC 07/17/2016 FUNMILAYO SHEA MD Ot F17.210 NICOTINE DEPENDENCE, CIGARETTES, UNCOMPL 07/17/2016 FUNMILAYO SHEA MD Ot F32.9 MAJOR DEPRESSIVE DISORDER, SINGLE EPISOD 07/17/2016 SHABBIR URRUTIA FUNMILAYO Elaine Ot 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 07/17/2016 SHABBIR URRUTIA FUNMILAYO Elaine Ot Z79.01 CORRECTION (CURRENT) USE OF ANTICOAGULANT 07/17/2016 SHABBIR URRUTIA FUNMILAYO Elaine Ot Z79.899 OTHER CORRECTION (CURRENT) DRUG THERAPY 07/25/2016 HORACE HIGGINS MD Ot R10.33 PERIUMBILICAL PAIN 08/06/2016 FUNMILAYO SHEA MD Ot D64.9 ANEMIA, UNSPECIFIED 08/06/2016 FUNMILAYO SHEA MD Ot E11.9 TYPE 2 DIABETES MELLITUS WITHOUT COMPLIC 08/06/2016 SHABBIR URRUTIA FUNMILAYO Elaine Ot F17.210 NICOTINE DEPENDENCE, CIGARETTES, UNCOMPL 08/06/2016 SHABBIR URRUTIA FUNMILAYO Elaine Ot F32.9 MAJOR DEPRESSIVE DISORDER, SINGLE EPISOD 08/06/2016 SHABBIR URRUTIA FUNMILAYO Elaine Ot 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 08/06/2016 SHABBIR URRUTIA FUNMILAYO Elaine Ot Z79.01 CORRECTION (CURRENT) USE OF ANTICOAGULANT 08/06/2016 SHABBIR URRUTIA FUNMILAYO Elaine Ot Z79.899 OTHER CORRECTION (CURRENT) DRUG THERAPY 08/08/2016 Ot 599.70 HEMATURIA, UNSPECIFIED 08/08/2016 Ot 789.04 ABDOMINAL PAIN, LEFT LOWER QUADRANT 08/08/2016 Ot 599.70 HEMATURIA, UNSPECIFIED 08/08/2016 Ot 789.04 ABDOMINAL PAIN, LEFT LOWER QUADRANT 08/08/2016 CALOS SALEEM APRN Ot 611.72 LUMP OR MASS IN BREAST 08/08/2016 Ot 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 08/08/2016 Ot 486 PNEUMONIA, ORGANISM NOS 08/08/2016 HORACE HIGGINS MD Ot 536.3 GASTROPARESIS 08/08/2016 HORACE HIGGINS MD Ot M54.10 RADICULOPATHY, SITE UNSPECIFIED 08/08/2016 HORACE HIGGINS MD, Ot Z12.31 ENCNTR SCREEN MAMMOGRAM FOR MALIGNANT NE 08/08/2016 HORACE HIGGINS MD Ot Z12.31 ENCNTR SCREEN MAMMOGRAM FOR MALIGNANT NE 08/08/2016 SHABBIR URRUTIA, FUNMILAYO Henry Ot D64.9 ANEMIA, UNSPECIFIED 08/08/2016 FUNMILAYO SHEA MD Ot E11.9 TYPE 2 DIABETES MELLITUS WITHOUT COMPLIC 08/08/2016 FUNMILAYO SHEA MD Ot F17.210 NICOTINE DEPENDENCE, CIGARETTES, UNCOMPL 08/08/2016 FUNMILAYO SHEA MD Ot F32.9 MAJOR DEPRESSIVE DISORDER, SINGLE EPISOD 08/08/2016 FUNMILAYO SHEA MD Ot 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 08/08/2016 FUNMILAYO SHEA MD Ot Z79.01 CORRECTION (CURRENT) USE OF ANTICOAGULANT 08/08/2016 FUNMILAYO SHEA MD Ot Z79.899 OTHER PARCEL POST WEIGHER (CURRENT) DRUG THERAPY 08/08/2016 HORACE HIGGINS MD Ot R10.33 PERIUMBILICAL PAIN 08/08/2016 VELIA MATTHEWS Ot E11.9 TYPE 2 DIABETES MELLITUS WITHOUT COMPLIC 08/08/2016 VELIA MATTHEWS Ot F17.210 NICOTINE DEPENDENCE, CIGARETTES, UNCOMPL 08/08/2016 VELIA MATTHEWS SALES OPERATIONS SPECIALIST Ot S20.211A CONTUSION OF RIGHT FRONT WALL OF THORAX, 08/08/2016 VELIA MATTHEWSP Ot S29.9XXA UNSPECIFIED INJURY OF THORAX, INITIAL EN 08/08/2016 VELIA MATTHEWSP Ot W10.9XXA FALL (ON) (FROM) UNSPECIFIED STAIRS AND 08/08/2016 VELIA MATTHEWSP Ot Y99.8 OTHER EXTERNAL CAUSE STATUS 08/08/2016 VELIA MATTHEWS SALES OPERATIONS SPECIALIST Ot Z79.4 PARCEL POST WEIGHER (CURRENT) USE OF INSULIN 08/08/2016 VELIA MATTHEWSP Ot Z79.899 OTHER PARCEL POST WEIGHER (CURRENT) DRUG THERAPY 08/08/2016 VELIA MATTHEWSP Ot Z86.711 PERSONAL HISTORY OF PULMONARY EMBOLISM 08/10/2016 VELIA MATTHEWSP Ot E11.9 TYPE 2 DIABETES MELLITUS WITHOUT COMPLIC 08/10/2016 VELIA MATTHEWSP Ot F17.210 NICOTINE DEPENDENCE, CIGARETTES, UNCOMPL 08/10/2016 VELIA MATTHEWSP Ot S20.211A CONTUSION OF RIGHT FRONT WALL OF THORAX, 08/10/2016 VELIA MATTHEWSP Ot S29.9XXA UNSPECIFIED INJURY OF THORAX, INITIAL EN 08/10/2016 VELIA MATTHEWSP Ot W10.9XXA FALL (ON) (FROM) UNSPECIFIED STAIRS AND 08/10/2016 VELIA MATTHEWSP Ot Y99.8 OTHER EXTERNAL CAUSE STATUS 08/10/2016 CASSIEVELIA Beltran SALES OPERATIONS SPECIALIST Ot Z79.4 PARCEL POST WEIGHER (CURRENT) USE OF INSULIN 08/10/2016 CASSIEVELIA BeltranP Ot Z79.899 OTHER CORRECTION (CURRENT) DRUG THERAPY 08/10/2016 CASSIE VELIA KANGP Ot Z86.711 PERSONAL HISTORY OF PULMONARY EMBOLISM 08/26/2016 CASSIEVELIA BeltranP Ot E11.65 TYPE 2 DIABETES MELLITUS WITH HYPERGLYCE 08/26/2016 CASSIEVELIA BeltranP Ot F17.210 NICOTINE DEPENDENCE, CIGARETTES, UNCOMPL 08/26/2016 CASSIEVELIA BeltranP Ot R07.81 PLEURODYNIA 08/26/2016 CASSIEVELIA BeltranP Ot Z79.4 PARCEL POST WEIGHER (CURRENT) USE OF INSULIN 08/26/2016 CASSIEVELIA Beltran SALES OPERATIONS SPECIALIST Ot Z79.899 OTHER PARCEL POST WEIGHER (CURRENT) DRUG THERAPY 08/30/2016 CASSIEVELIA BeltranP Ot E11.65 TYPE 2 DIABETES MELLITUS WITH HYPERGLYCE 08/30/2016 CASSIEVELIA BeltranP Ot F17.210 NICOTINE DEPENDENCE, CIGARETTES, UNCOMPL 08/30/2016 CASSIEVELIA BeltranP Ot R07.81 PLEURODYNIA 08/30/2016 CASSIEVELIA Beltran SALES OPERATIONS SPECIALIST Ot Z79.4 PARCEL POST WEIGHER (CURRENT) USE OF INSULIN 08/30/2016 CASSIEVEILA Beltran SALES OPERATIONS SPECIALIST Ot Z79.899 OTHER PARCEL POST WEIGHER (CURRENT) DRUG THERAPY Procedures Code Description Performed By Performed On G0008 FLU ADMINISTRATION (MEDICARE ONLY) 02/17/2012 Q2038 FLUZONE (MEDICARE OFFICE VISIT ONLY) 02/17/2012 71465 URINE DRUG SCREEN (IN-HOUSE) 02/17/2012 90184 UA LONG DIP 06/22 96040 MICRO ALBUMIN-IN HOUSE 06/22/2012 96467 MICROALBUMIN 17668 A1C (IN-HOUSE) 86007 CULTURE UROGENITAL 07/02/2012 22049 URINE DRUG SCREEN (IN-HOUSE) 07/27/2012 42119 UA LONG DIP 07/27 94594 ROUTINE VENIPUNCTURE 09/01/2012 45494 CBC 09/01/2012 65532 LIPID PANEL 09/01 47654 CMP 09/01/2012 5320913 GFR CALC (RESULT ONLY) 09/01/2012 77251 C-PEPTIDE 2012 44328 UA LONG DIP 09/[address] ABDOMEN & PELVIS W/ & W/O CONTRAST 09/07/[address] ABDOMEN & PELVIS STONE SEARCH 09/07/2012 52903 KUB 09/18/2012 69577 A1C (IN-HOUSE) 05305 MAMMOGRAM, SCREENING 03/30/2014 34.91 THORACENTESIS 10/2014 76910 A1C (IN-HOUSE) Results Test Result Range Complete blood count (CBC) with automated white blood cell (WBC) differential - 08/24/16 12:30 Blood leukocytes automated count (number/volume) 9.9 10*3/ uL 4.3-11.0 Blood erythrocytes automated count (number/volume) 5.11 10*6 /uL 4.35-5.85 Venous blood hemoglobin measurement (mass/volume) 14.2 g/dL 11.5-16.0 Blood hematocrit (volume fraction) 42 % 35-52 Automated erythrocyte mean corpuscular volume 83 [foz_us] 80-99 Automated erythrocyte mean corpuscular hemoglobin (mass per erythrocyte) 28 pg 25-34 Automated erythrocyte mean corpuscular hemoglobin concentration measurement ( mass/volume) 34 g/dL 32-36 Automated erythrocyte distribution width ratio 12.8 % 10.0-14.5 Automated blood platelet count (count/volume) 289 10*3/uL 130-400 Automated blood platelet mean volume measurement 11.5 [foz_ us] 7.4-10.4 Automated blood neutrophils/100 leukocytes 66 % 42-75 Automated blood lymphocytes/100 leukocytes 26 % 12-44 Blood monocytes/100 leukocytes 5 % 0-12 Automated blood eosinophils/100 leukocytes 2 % 0-10 Automated blood basophils/100 leukocytes 0 % 0-10 Blood neutrophils automated count (number/volume) 6.5 10*3 1.8-7.8 Blood lymphocytes automated count (number/volume) 2.6 10*3 1.0-4.0 Blood monocytes automated count (number/volume) 0.5 10*3 0.0-1.0 Automated eosinophil count 0.2 10*3/uL 0.0-0.3 Automated blood basophil count (count/volume) 0.0 10*3/uL 0.0-0.1 Comprehensive metabolic panel - 08/24/16 12:30 Serum or plasma sodium measurement (moles/volume) 131 mmol/ L 135-145 Serum or plasma potassium measurement (moles/volume) 4.4 mmol/L 3.6-5.0 Serum or plasma chloride measurement (moles/volume) 97 mmol/ L 98-107 Carbon dioxide 18 mmol/L 21-32 Serum or plasma anion gap determination (moles/volume) 16 mmol/L 5-14 Serum or plasma urea nitrogen measurement (mass/volume) 13 mg/dL 7-18 Serum or plasma creatinine measurement (mass/volume) 1.22 mg /dL 0.60-1.30 Serum or plasma urea nitrogen/creatinine mass ratio 11 NRG Serum or plasma creatinine measurement with calculation of estimated glomerular filtration rate 58 NRG Serum or plasma glucose measurement (mass/volume) 645 mg/dL 70-105 Serum or plasma calcium measurement (mass/volume) 9.4 mg/dL 8.5-10.1 Serum or plasma total bilirubin measurement (mass/volume) 0.4 mg/dL 0.1-1.0 Serum or plasma alkaline phosphatase measurement (enzymatic activity/volume) 175 U/L 40-136 Serum or plasma aspartate aminotransferase measurement (enzymatic activity/ volume) 20 U/L 5-34 Serum or plasma alanine aminotransferase measurement (enzymatic activity/volume ) 25 U/L 0-55 Serum or plasma protein measurement (mass/volume) 7.0 g/dL 6.4-8.2 Serum or plasma albumin measurement (mass/volume) 3.8 g/dL 3.2-4.5 Complete urinalysis with reflex to culture - 08/24/16 13:12 Urine color determination YELLOW NRG Urine clarity determination CLEAR NRG Urine pH measurement by test strip 6 5- 9 Specific gravity of urine by test strip 1.010 1.016-1.022 Urine protein assay by test strip, semi-quantitative 2+ NEGATIVE Urine glucose detection by automated test strip 4+ NEGATIVE Erythrocytes detection in urine sediment by light microscopy NEGATIVE NEGATIVE Urine ketones detection by automated test strip NEGATIVE NEGATIVE Urine nitrite detection by test strip NEGATIVE NEGATIVE Urine total bilirubin detection by test strip NEGATIVE NEGATIVE Urine urobilinogen measurement by automated test strip (mass/volume) NORMAL NORMAL Urine leukocyte esterase detection by dipstick NEGATIVE NEGATIVE Automated urine sediment erythrocyte count by microscopy (number/high power field) NONE NRG Automated urine sediment leukocyte count by microscopy (number/high power field ) NONE NRG Bacteria detection in urine sediment by light microscopy NEGATIVE NRG Squamous epithelial cells detection in urine sediment by light microscopy 5-10 NRG Crystals detection in urine sediment by light microscopy NONE NRG Casts detection in urine sediment by light microscopy NONE NRG Mucus detection in urine sediment by light microscopy NEGATIVE NRG Complete urinalysis with reflex to culture NO NRG Capillary blood glucose measurement by glucometer (mass/volume) - 08/24/16 14: 26 Capillary blood glucose measurement by glucometer (mass/volume) 405 mg/dL 70-110 Encounters ACCT No. Visit Date/Time Discharge Status Pt. Type Provider Facility Loc./Unit Complaint [id number] 09/13/2014 11:20:00 09/13/2014 23: 59:59 CLS Outpatient HORACE HIGGINS MD [id number] 08/11/2014 15:00:00 08/11/2014 23: 59:59 CLS Outpatient HORACE HIGGINS MD [id number] 03/30/2014 14:53:00 03/30/2014 23: 59:59 CLS Outpatient CALOS SALEEM APRN [id number] 12/03/2012 17:54:00 12/03/2012 23: 59:59 CLS Outpatient DESIREE LYONS DO [id number] 09/01/2012 09:55:00 09/01/2012 23: 59:59 CLS Outpatient TISHA YOUNG APRN [id number] 07/27/2012 09:51:00 07/27/2012 23: 59:59 CLS Outpatient TISHA YOUNG APRN [id number] 07/02/2012 10:15:00 07/02/2012 23: 59:59 CLS Outpatient DESIREE LYONS DO [id number] 06/29/2012 14:55:00 06/29/2012 23: 59:59 CLS Outpatient [id number] 06/22/2012 16:08:00 06/22/2012 23: 59:59 CLS Outpatient [id number] 02/17/2012 14:19:00 02/17/2012 23: 59:59 CLS Outpatient [id number] 02/17/2012 14:19:00 02/17/2012 23: 59:59 CLS Outpatient TISHA YOUNG APRN [id number] 10/01/2012 18:03:00 Document Registration [id number] 09/11/2012 08:51:00 Document Registration [id number] 09/11/2012 08:51:00 Document Registration [id number] 09/03/2012 16:35:00 Document Registration
--- OUTSIDE RECORDS SUMMARY | 2016-09-17 09:15 | XMS REPORT ---
Author Author TRISH LINDA [employer] Address Unknown Phone Unavailable Care Team Providers Care Contracts Paralegal Name Role Phone TRISH LINDA CP Unavailable Allergies No Known Allergies Problems Problem Type Condition ICD-9 Code Onset Dates Condition Status Assessment Dental examination V72.2 Active Problem Postmenopausal atrophic vaginitis 627.3 Active Problem Routine gynecological examination V72.31 Active Problem Depressive disorder, not elsewhere classified 311 Active Problem Diabetes mellitus without mention of complication, type II or unspecified type, not stated as uncontrolled 250.00 Active Problem Unspecified myalgia and myositis 729.1 Active Problem 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
--- OUTSIDE RECORDS SUMMARY | 2016-09-17 09:16 | XMS REPORT ---
Author HORACE Soto [facility] eClinicalWorks Address Unknown Phone Unavailable Care Team Providers Care Seafood Harvester Name Role Phone HORACE HIGGINS CP Unavailable Allergies, Adverse Reactions, Alerts Substance Reaction Event Type Coumadin vomitied blood Drug Allergy Toradol swells, itch from inside out Drug Allergy Nsaids (non-steroidal Anti-inflammatory Drug) triggers asthma, can't breathe, swells form inside out. Non Drug Allergy Problems Problem Type Condition Code Onset Dates Condition Status Problem Depressive disorder, not elsewhere classified 311 Active Problem Neuropathy G62.9 Active Problem Gastroparesis K31.84 Active Problem Type 2 diabetes mellitus without complications E11.9 Active Problem Mixed hyperlipidemia E78.2 Active Problem Uncomplicated asthma, unspecified asthma severity J45.909 Active Problem Diabetes E11.9 Active Problem Back pain M54.9 Active Problem Type 2 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 Active Problem longterm 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 Z79.4 Active Assessment Encounter for immunization Z23 Active Assessment Uncomplicated asthma, unspecified asthma severity J45.909 Active Assessment Type 2 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 Active Assessment Neuropathy G62.9 Active Medications Medication Code System Code Instructions Start Date End Date Status Dosage zolpidem [facility] 0 10 mg Once a day Feb 17, 2012 take 1 tablet [employer] Pen [place] [facility] [id number] 31G X 6 MM 1 THREE TIMES A DAY Cymbalta [facility] [address]-09 30 mg August 17, 2014 take 1 capsule ( 30 mg) by oral route once daily Xarelto [facility] [address]-51 20 mg August 11, 2014 1 Tablet by Oral route 1 time per day Lyrica [facility] [address]-98 200 mg Orally t i d December 07, 2015 1 capsule Omeprazole [facility] 15403285252 40 TAKE 1 CAPSULE BY MOUTH ONCE DAILY Albuterol Sulfate [facility] [address]-28 90 mcg/actuation Orally 4 times a day August 17, 2014 inhale 2 puffs by Inhalation route 4 times per day as needed PRN Reglan [facility] 46983557323 10 TAKE 1 TABLET BY MOUTH FOUR TIMES DAILY Amitiza [facility] 53773921791 8 MCG Orally Twice a day 1 capsule with food Lantus SoloStar [facility] 52122919034 100 INJECT 30 UNITS SUB-Q EVERY NIGHT AT BEDTIME Humalog KwikPen [facility] 74726929376 100 INJECT 10 UNITS SUB-Q THREE TIMES DAILY BOFORE MEALS Erythromycin Base Coated [facility] 79854937192 500 MG Orally not defined Lexapro [facility] [address]-16 20 mg Feb 17, 2012 take 1 tablet (20 mg ) by oral route once daily Lipitor [facility] [address]-49 40 mg Orally Once a day December 07, 2015 1 tablet Vitamin B-12 [facility] [address]13 1,000 mcg August 17, 2014 1 Tablet by Oral route 1 time per day Cyclobenzaprine HCl [facility] 70077904387 10 TAKE 1 TABLET BY MOUTH THREE TIMES DAILY Oxycodone-Acetaminophen [facility] [address]-99 10-325 MG Orally 3 times a day 1 tablet as needed Procedures Procedure Coding System Code Date SINGLE IMMUNIZATION ADMIN CPT-4 28576 Feb 23, 2016 [facility] VISIT ESTABLISHED PATIENT CPT-4 G0467 Feb 23, 2016 FLUARIX QUAD P-FREE 3 AND UP .50 2015 CPT-4 24898 Feb 23, 2016 Office Visit, Est Pt., Level 3 CPT-4 60128 Feb 23, 2016 Vital Signs Date/Time: Feb 23, 2016 Cardiac Monitoring Heart Rate 100 bpm Weight 96.7 lbs Height 62 in BMI 17.68 Index Blood Pressure Diastolic 84 mmHg Blood Pressure Systolic 110 mmHg Results No Known Results Immunizations Vaccine Administration Date FLUARIX QUAD P-FREE 3 AND UP .50 2015Feb 23, 2016 Summary Purpose eClinicalWorks Submission
--- OUTSIDE RECORDS SUMMARY | 2016-09-17 09:16 | XMS REPORT ---
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
--- OUTSIDE RECORDS SUMMARY | 2016-09-17 09:16 | XMS REPORT ---
Author Author HORACE HIGGINS [facility] eClinicalWorks Address Unknown Phone Unavailable Care Team Providers Care Public Welfare Director Name Role Phone HORACE HIGGINS CP Unavailable Allergies No Known Allergies Problems Problem Type Condition Code Onset Dates Condition Status Problem Unspecified myalgia and myositis 729.1 Active Problem Depressive disorder, not elsewhere classified 311 Active Problem Postmenopausal atrophic vaginitis 627.3 Active Problem Back pain 724.5 Active Problem Gastroparesis 536.3 Active Problem Diabetes mellitus without mention of complication, type II or unspecified type, not stated as uncontrolled 250.00 Active Problem Routine gynecological examination V72.31 Active Problem 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
--- OUTSIDE RECORDS SUMMARY | 2016-09-17 09:16 | XMS REPORT ---
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
--- OUTSIDE RECORDS SUMMARY | 2016-09-17 09:16 | XMS REPORT ---
Author Author HORACE HIGGINS [facility] eClinicalWorks Address Unknown Phone Unavailable Care Team Providers Care Baseball Coach Name Role Phone HORACE HIGGINS CP Unavailable Allergies No Known Allergies Problems Problem Type Condition ICD-9 Code Onset Dates Condition Status Problem Unspecified [...] pulmonary embolism and infarction 415.19 Active Medications No Known Medications Results No Known Results Summary Purpose eClinicalWorks Submission
--- OUTSIDE RECORDS SUMMARY | 2016-09-17 09:16 | XMS REPORT ---
Author Author HORACE HIGGINS [facility] eClinicalWorks Address Unknown Phone Unavailable Care Team Providers Care Nurses' Association Executive Director Name Role Phone HORACE HIGGINS CP [...] Instructions Start Date End Date Status Dosage Amitiza [facility] [address]-90 8 MCG Orally Twice a day Mar 20, 2015 1 capsule with food Results No Known Results Summary Purpose eClinicalWorks Submission
--- OUTSIDE RECORDS SUMMARY | 2016-09-17 09:16 | XMS REPORT ---
Author Author HORACE HIGGINS [facility] eClinicalWorks Address Unknown Phone Unavailable Care Team Providers Care Funds Development Director Name Role Phone HORACE HIGGINS CP Unavailable Allergies No Known Allergies Problems Problem Type Condition Code Onset Dates Condition Status Problem Depressive disorder, not elsewhere classified 311 Active Problem Neuropathy G62.9 Active Problem Gastroparesis K31.84 Active Assessment Breast cancer screening Z12.39 Active Problem Type 2 diabetes mellitus without complications E11.9 Active Problem Mixed hyperlipidemia E78.2 Active Problem Uncomplicated asthma, unspecified asthma severity J45.909 Active Problem Diabetes E11.9 Active Problem Back pain M54.9 Active Problem Type 2 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 Active Problem 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 Active Medications No Known Medications Results No Known Results Summary Purpose eClinicalWorks Submission
--- OUTSIDE RECORDS SUMMARY | 2016-09-17 09:16 | XMS REPORT ---
Author HORACE Soto [facility] eClinicalWorks Address Unknown Phone Unavailable Care Team Providers Care Airfield Engineer Officer Name Role Phone HORACE HIGGINS CP Unavailable Allergies, Adverse Reactions, Alerts Substance Reaction Event Type Coumadin vomitied blood Drug Allergy Toradol swells, itch from inside out Drug Allergy Nsaids (non-steroidal Anti-inflammatory Drug) triggers asthma, can't breathe, swells form inside out. Non Drug Allergy Problems Problem Type Condition Code Onset Dates Condition Status Problem Unspecified myalgia and myositis 729.1 Active Assessment Radicular leg pain M54.10 Active Problem Depressive disorder, not elsewhere classified [...] Instructions Start Date End Date Status Dosage Me[employer] Pen [place] [facility] 69251625960 31G X 6 MM 1 THREE TIMES A DAY Lantus SoloStar [facility] 20658333023 100 INJECT 30 UNITS SUB-Q EVERY NIGHT AT BEDTIME Amitiza [facility] [address]-93 8 MCG Orally Twice a day Mar 20, 2015 1 capsule with food Albuterol Sulfate [facility] [address]-05 90 mcg/actuation August 17, 2014 inhale 2 puffs by Inhalation route 4 times per day as needed PRN Carisoprodol [facility] [address]-26 350 MG Orally Four times a day 1 tablet as needed Oxycodone-Acetaminophen [facility] 20036557357 10-325 MG TAKE ONE TABLET BY MOUTH THREE TIMES DAILY NEEDED Vitamin B-12 [facility] 402[address]86 1,000 mcg August 17, 2014 1 Tablet by Oral route 1 time per day Zofran ODT [facility] [address]-59 4 mg August 11, 2014 take 1 tablets by Oral route every 8 hours PRN Nausea or Vomiting Cymbalta [facility] [address]-85 30 mg August 17, 2014 take 1 capsule ( 30 mg) by oral route once daily Erythromycin Base Coated [facility] [address]-50 500 MG Orally 3 times a day 1 tablet Cyclobenzaprine HCl [facility] 84845187962 10 mg 1 TAB(S) 3 TIMES A DAY ORALLY 30 Omeprazole [facility] 17889728067 40 TAKE 1 CAPSULE BY MOUTH ONCE DAILY zolpidem [facility] 0 10 mg Once a day Feb 17, 2012 take 1 tablet Lexapro [facility] [address]-97 20 mg Feb 17, 2012 take 1 tablet (20 mg ) by oral route once daily Xarelto [facility] [address]-13 20 mg August 11, 2014 1 Tablet by Oral route 1 time per day Reglan [facility] [address]-71 10 MG Orally 4 times a day Jan 31, 2015 as directed Neurontin [facility] 31229397380 600 MG Orally Three times a day 1 capsule Humalog KwikPen [facility] [address]-09 100 unit/mL Feb 17, 2012 8-10 Unit by Subcutaneous route 3 times per day (8 units q AM & Noon, 10 units q evening) Procedures Procedure Coding System Code Date Office Visit, Est Pt., Level 3 CPT-4 24856 Mar 27, 2015 Vital Signs Date/Time: Mar 27, 2015 Temperature 99.0 F Weight 107 lbs Height 62 in BMI 19.57 Index Blood Pressure Diastolic 62 mmHg Blood Pressure Systolic 102 mmHg Cardiac Monitoring Heart Rate 78 bpm Results No Known Results Summary Purpose eClinicalWorks Submission
--- OUTSIDE RECORDS SUMMARY | 2016-09-17 09:16 | XMS REPORT ---
Author Author HORACE HIGGINS [facility] eClinicalWorks Address Unknown Phone Unavailable Care Team Providers Care Sieve Maker Name Role Phone HORACE HIGGINS CP Unavailable [...] Start Date End Date Status Dosage Oxycodone-Acetaminophen [facility] [address]-94 10-325 MG Orally 3 times a day ONE TABLET Results No Known Results Summary Purpose eClinicalWorks Submission
--- OUTSIDE RECORDS SUMMARY | 2016-09-17 09:16 | XMS REPORT ---
Author Author HORACE HIGGINS [facility] Address [address] [place] [address] Care Team Providers Care Forensic Sergeant Name Role Phone HORACE HIGGINS Unavailable PROBLEMS Type Condition ICD9-CM Code [id number] Code Onset Dates Condition Status SNOMED Code Problem Gastroparesis K31.84 Active 039685101 Problem Back pain M54.9 Active 646033951 Problem Neuropathy G62.9 Active 342012264 Problem Depressive disorder, not elsewhere classified 311 Active 49612775 Problem Uncomplicated asthma, unspecified asthma severity J45.909 Active 844196949 Problem Type 2 diabetes mellitus without complications E11.9 Active 457885038 Problem [facility] 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 Z79.4 Active 155516291 Problem Diabetes E11.9 Active 85489957 Problem Mixed hyperlipidemia E78.2 Active 165212831 Problem Type 2 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 Active 95517656 ALLERGIES Unknown Allergies SOCIAL HISTORY No smoking Hx information available PLAN OF CARE VITAL SIGNS MEDICATIONS Unknown Medications RESULTS No Results PROCEDURES No Known procedures IMMUNIZATIONS No Known Immunizations
--- OUTSIDE RECORDS SUMMARY | 2016-09-17 09:16 | XMS REPORT ---
Author Author HORACE HIGGINS [facility] eClinicalWorks Address Unknown Phone Unavailable Care Team Providers Care Stamping Mill Tender Name Role Phone HORACE HIGGINS CP Unavailable Allergies No Known Allergies Problems Problem Type Condition Code Onset Dates Condition Status Assessment Other dorsalgia M54.89 Active Problem Unspecified myalgia and myositis 729.1 [...] Start Date End Date Status Dosage Oxycodone-Acetaminophen [facility] [address]-22 10-325 MG Orally 3 times a day ONE TABLET Results No Known Results Summary Purpose eClinicalWorks Submission
--- OUTSIDE RECORDS SUMMARY | 2016-09-17 09:16 | XMS REPORT ---
Author Author HORACE HIGGINS [facility] Address [address] [place] [address] Care Team Providers Care Entomology Professor Name Role Phone HORACE HIGGINS Unavailable PROBLEMS Type Condition ICD9-CM Code [id number] Code Onset Dates Condition Status SNOMED Code Problem Gastroparesis K31.84 Active 792861023 Problem Back pain M54.9 Active 997662361 Problem Neuropathy G62.9 Active 557561982 Problem Depressive disorder, not elsewhere classified 311 Active 97859174 Problem Uncomplicated asthma, unspecified asthma severity J45.909 Active 328348305 Problem Type 2 diabetes mellitus without complications E11.9 Active 170408606 Problem shelter 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 Z79.4 Active 544747234 Problem Diabetes E11.9 Active 69075308 Problem Mixed hyperlipidemia E78.2 Active 883987118 Problem Type 2 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 Active 29804405 ALLERGIES Unknown Allergies SOCIAL HISTORY No smoking Hx information available PLAN OF CARE VITAL SIGNS MEDICATIONS Unknown Medications RESULTS No Results PROCEDURES No Known procedures IMMUNIZATIONS No Known Immunizations
--- OUTSIDE RECORDS SUMMARY | 2016-09-17 09:16 | XMS REPORT ---
Author Author HORACE HIGGINS [facility] eClinicalWorks Address Unknown Phone Unavailable Care Team Providers Care Physical Therapist Aide Name Role Phone HORACE HIGGINS CP Unavailable Allergies No Known Allergies Problems Problem Type Condition Code Onset Dates Condition Status Problem Gastroparesis K31.84 Active Problem Depressive disorder, not elsewhere classified 311 Active Problem Mixed hyperlipidemia E78.2 Active Problem Type 2 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 Active Problem Type 2 diabetes mellitus without complications E11.9 Active Problem Back pain M54.9 Active Problem Neuropathy G62.9 Active 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
--- OUTSIDE RECORDS SUMMARY | 2016-09-17 09:17 | XMS REPORT ---
Author Author HORACE HIGGINS [facility] eClinicalWorks Address Unknown Phone Unavailable Care Team Providers Care Diesel Truck Technician Name Role Phone HORACE HIGGINS CP Unavailable [...]
--- OUTSIDE RECORDS SUMMARY | 2016-09-17 09:17 | XMS REPORT ---
Author Author HORACE HIGGINS [facility] Address [address] [place] [address] Care Team Providers Care Bolt Maker Name Role Phone HORACE HIGGINS Unavailable PROBLEMS Type Condition ICD9-CM Code PNO12-FB Code Onset Dates Condition Status SNOMED Code Problem Depressive disorder, not elsewhere classified 311 Active 95663358 Problem Neuropathy G62.9 Active 252773605 Problem Gastroparesis K31.84 Active 593276472 Problem Type 2 diabetes mellitus without complications E11.9 Active 103404434 Problem Mixed hyperlipidemia E78.2 Active 946504626 Problem Diabetes E11.9 Active 26517624 Problem Back pain M54.9 Active 315877683 Problem Type 2 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 Active 68625828 Problem intermediate 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 Z79.4 Active 561507847 ALLERGIES Unknown Allergies SOCIAL HISTORY No smoking Hx information available PLAN OF CARE VITAL SIGNS MEDICATIONS Unknown Medications RESULTS No Results PROCEDURES No Known procedures IMMUNIZATIONS No Known Immunizations
--- OUTSIDE RECORDS SUMMARY | 2016-09-17 09:17 | XMS REPORT ---
Author Author HORACE HIGGINS [facility] eClinicalWorks Address Unknown Phone Unavailable Care Team Providers Care Autotransfusionist Name Role Phone HORACE HIGGINS CP Unavailable [...] Start Date End Date Status Dosage Oxycodone-Acetaminophen [facility] [address]-59 10-325 MG Orally 3 times a day August 17, 2014 1 tablet as needed Results No Known Results Summary Purpose eClinicalWorks Submission
--- OUTSIDE RECORDS SUMMARY | 2016-09-17 09:17 | XMS REPORT ---
Author Author HORACE HIGGINS [facility] eClinicalWorks Address Unknown Phone Unavailable Care Team Providers Care Physician Relations Manager Name Role Phone HORACE HIGGINS CP [...]
--- OUTSIDE RECORDS SUMMARY | 2016-09-17 09:17 | XMS REPORT ---
Author Author HORACE HIGGINS [facility] eClinicalWorks Address Unknown Phone Unavailable Care Team Providers Care Care Center Manager Name Role Phone HORACE HIGGINS CP Unavailable Allergies No Known Allergies Problems Problem Type Condition Code Onset Dates Condition Status Assessment Back pain M54.9 Active Problem Gastroparesis K31.84 Active Problem Depressive disorder, not elsewhere classified 311 Active Problem Mixed hyperlipidemia E78.2 Active Problem Type 2 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 Active Problem Type 2 diabetes mellitus without complications E11.9 Active Problem Back pain M54.9 Active Problem Neuropathy G62.9 Active 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
--- OUTSIDE RECORDS SUMMARY | 2016-09-17 09:17 | XMS REPORT ---
Author Author HORACE HIGGINS [facility] Address [address] [place] [address] Care Team Providers Care Wet Finisher Name Role Phone HORACE HIGGINS Unavailable PROBLEMS Type Condition ICD9-CM Code LHE44-ZU Code Onset Dates Condition Status SNOMED Code Problem Gastroparesis K31.84 Active 691224460 Problem Back pain M54.9 Active 496352512 Problem Neuropathy G62.9 Active 649365425 Assessment Bronchitis J40 Apr, Active 89118755 Problem Depressive disorder, not elsewhere classified 311 Active 77274932 Problem Uncomplicated asthma, unspecified asthma severity J45.909 Active 400725640 Problem Type 2 diabetes mellitus without complications E11.9 Active 823486310 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 Non Drug Allergy Apr, Active SOCIAL HISTORY No smoking Hx information available PLAN OF CARE VITAL SIGNS Height 62 in 2016-05-06 Weight 99.1 lbs 2016-05-06 Heart Rate 102 bpm 2016-05-06 Respiratory Rate 16 2016-05-06 BMI 18.12 kg/m2 2016-05-06 Blood pressure systolic 116 mmHg 2016-05-06 Blood pressure diastolic 70 mmHg 2016-05-06 MEDICATIONS Medication Instructions Dosage Frequency Start Date End Date Duration Status Lyrica 200 mg Orally 3 times a day 1 capsule 8h 14 Nov, 2015 Active Reglan 10 TAKE 1 TABLET BY MOUTH FOUR TIMES DAILY 30 Active Erythromycin Base Coated 500 MG Active Cefdinir 300 MG Orally 2 times a day 1 capsule 12h 12 Apr, 2016 19 Dec, 2016 07 days Active [employer] [place] 31G X 6 MM 1 THREE TIMES A DAY Active Lipitor 40 mg Orally Once a day 1 tablet 24h 30 Active Omeprazole 40 TAKE 1 CAPSULE BY MOUTH ONCE DAILY 30 Active Albuterol Sulfate 90 mcg/actuation Orally 4 times a day inhale 2 puffs by Inhalation route 4 times per day as needed PRN 6h Jul, Active Amitiza 8 MCG Orally Twice a day 1 capsule with food 12h Active Humalog KwikPen 100 INJECT 10 UNITS SUB-Q THREE TIMES DAILY BOFORE MEALS 50 Active Xarelto 20 mg 1 Tablet by Oral route 1 time per day Jul, Active Promethazine-Codeine 6.25-10 MG/5ML Orally every 4 hrs 1-2 tsp 4h Apr, Active Lexapro 20 mg take 1 tablet (20 mg) by oral route once daily Jan, Active Quad Cane - as directed 24h Apr, Active Oxycodone-Acetaminophen 10-325 MG Orally 3 times a day 1 tablet as needed 8h 28 days Active Vitamin B-12 1,000 mcg 1 Tablet by Oral route 1 time per day Jul, Active Cymbalta 30 mg Orally Once a day take 1 capsule (30 mg) by oral route once daily 24h Jul, Active Ayden Contour Next Test - subcutaneously 3 times a day test blood sugar 8h Mar, Active zolpidem 10 mg take 1 tablet 24h Jan, Active Cyclobenzaprine HCl 10 TAKE 1 TABLET BY MOUTH THREE TIMES DAILY 30 Active Comfort Lancets - as directed 8h Mar, Active Lantus SoloStar 100 INJECT 30 UNITS SUB-Q EVERY NIGHT AT BEDTIME 50 Active RESULTS No Results PROCEDURES Procedure Date Ordered Related Diagnosis Body Site [facility] VISIT ESTABLISHED PATIENT May 06, 2016 Office Visit, Est Pt., Level 3 May 06, 2016 IMMUNIZATIONS No Known Immunizations
--- OUTSIDE RECORDS SUMMARY | 2016-09-17 09:18 | XMS REPORT ---
Author HORACE Soto [facility] eClinicalWorks Address Unknown Phone Unavailable Care Team Providers Care Precinct Commanding Officer Name Role Phone HORACE HIGGINS CP Unavailable Allergies, Adverse Reactions, Alerts Substance Reaction Event Type Coumadin vomitied blood Drug Allergy Toradol swells, itch from inside out Drug Allergy Nsaids (non-steroidal Anti-inflammatory Drug) triggers asthma, can't breathe, swells form inside out. 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 Active Assessment Type 2 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 Active Assessment Mixed hyperlipidemia E78.2 Active Medications Medication Code System Code Instructions Start Date End Date Status Dosage Amitiza [facility] 15741475773 8 MCG Orally Twice a day 1 capsule with food Erythromycin Base Coated [facility] 07213492091 500 MG Orally not defined Lantus SoloStar [facility]AM[facility] 07480371390 100 INJECT 30 UNITS SUB-Q EVERY NIGHT AT BEDTIME Reglan [facility] NAM[facility] 83158338068 10 TAKE 1 TABLET BY MOUTH FOUR TIMES DAILY Humalog KwikPen [facility]AM[facility] [address]-07 100 unit/mL Feb 17, 2012 8-10 Unit by Subcutaneous route 3 times per day (8 units q AM & Noon, 10 units q evening) Cyclobenzaprine HCl [facility] 18904117031 10 TAKE 1 TABLET BY MOUTH THREE TIMES DAILY Oxycodone-Acetaminophen [facility] [address]-06 10-325 MG Orally 3 times a day 1 tablet as needed Cymbalta [facility] [address]-08 30 mg August 17, 2014 take 1 capsule ( 30 mg) by oral route once daily Vitamin B-12 [facility] 62[address]70 1,000 mcg August 17, 2014 1 Tablet by Oral route 1 time per day Xarelto [facility] [address]-79 20 mg August 11, 2014 1 Tablet by Oral route 1 time per day Lexapro [facility] [address]-80 20 mg Feb 17, 2012 take 1 tablet (20 mg ) by oral route once daily Lipitor [facility] [address]-48 40 mg Orally Once a day December 07, 2015 1 tablet zolpidem [facility] 0 10 mg Once a day Feb 17, 2012 take 1 tablet [employer] [place] FOR[facility] NAMED [facility] 29742043882 31G X 6 MM 1 THREE TIMES A DAY Albuterol Sulfate [facility] NAM[facility] [address]-84 90 mcg/actuation August 17, 2014 inhale 2 puffs by Inhalation route 4 times per day as needed PRN Omeprazole [facility]AM[facility] 46131427039 40 TAKE 1 CAPSULE BY MOUTH ONCE DAILY Lyrica [facility] [address]-42 200 mg Orally t i d December 07, 2015 1 capsule Procedures Procedure Coding System Code Date [facility] VISIT ESTABLISHED PATIENT CPT-4 G0467 December 07, 2015 Office Visit, Est Pt., Level 4 CPT-4 88202 December 07, 2015 GLYCATED HEMOGLOBIN TEST CPT-4 99612 December 07, 2015 Vital Signs Date/Time: December 07, 2015 Cardiac Monitoring Heart Rate 78 bpm Weight 102 lbs Height 62 in Blood Pressure Diastolic 72 mmHg Blood Pressure Systolic 106 mmHg Results No Known Results Summary Purpose eClinicalWorks Submission
--- OUTSIDE RECORDS SUMMARY | 2016-09-17 09:18 | XMS REPORT ---
Author Author HORACE HIGGINS [facility] Address [address] [place] [address] Care Team Providers Care Summer Camp Counselor Name Role Phone HORACE HIGGINS Unavailable PROBLEMS Type Condition ICD9-CM Code CKG30-AF Code Onset Dates Condition Status SNOMED Code Problem Depressive disorder, not elsewhere classified 311 Active 28035009 Problem Neuropathy G62.9 Active 200508117 Problem Gastroparesis K31.84 Active 888892564 Problem Type 2 diabetes mellitus without complications E11.9 Active 765521454 Problem Mixed hyperlipidemia E78.2 Active 361060171 Problem Diabetes E11.9 Active 91172869 Problem Back pain M54.9 Active 673467977 Problem Type 2 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
--- OUTSIDE RECORDS SUMMARY | 2016-09-17 09:18 | XMS REPORT ---
Author Author HORACE HIGGINS [facility] eClinicalWorks Address Unknown Phone Unavailable Care Team Providers Care Nut Sheller Machine Operator Name Role Phone HORACE HIGGINS CP Unavailable Allergies No Known Allergies Problems Problem Type Condition Code Onset Dates Condition Status Problem Depressive disorder, not elsewhere classified 311 Active Problem Neuropathy G62.9 Active Problem Gastroparesis K31.84 Active Assessment Other dorsalgia M54.89 Active Problem Type 2 diabetes mellitus without complications E11.9 Active Problem Mixed hyperlipidemia E78.2 Active Problem Uncomplicated asthma, unspecified asthma severity J45.909 Active Problem Diabetes E11.9 Active Problem Back pain M54.9 Active Problem 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
--- OUTSIDE RECORDS SUMMARY | 2016-09-17 09:18 | XMS REPORT ---
Author HORACE Soto [facility] eClinicalWorks Address Unknown Phone Unavailable Care Team Providers Care Child Support Case Officer Name Role Phone HORACE HIGGINS CP Unavailable Allergies, Adverse Reactions, Alerts Substance Reaction Event Type Coumadin vomitied blood Drug Allergy Toradol swells, itch from inside out Drug Allergy Nsaids (non-steroidal Anti-inflammatory Drug) triggers asthma, can't breathe, swells form inside out. Non Drug Allergy Problems Problem Type Condition ICD-9 Code Onset Dates Condition Status Assessment Gastroparesis 536.3 Active Problem Unspecified myalgia and myositis 729.1 Active Assessment Diabetes mellitus without mention of complication, type II or unspecified type, not stated as uncontrolled 250.00 Active Assessment Hypoacusis 389.9 Active Problem Depressive disorder, not elsewhere classified [...] Instructions Start Date End Date Status Dosage Neurontin [facility] 77822243718 600 MG Orally Three times a day 1 capsule Carisoprodol [facility] [address]-46 350 MG Orally Four times a day 1 tablet as needed Albuterol Sulfate [facility] [address]-99 90 mcg/actuation August 17, 2014 inhale 2 puffs by Inhalation route 4 times per day as needed PRN Lexapro [facility] [address]-53 20 mg Feb 17, 2012 take 1 tablet (20 mg ) by oral route once daily Reglan [facility] [address]-13 10 mg Orally 4 times a day August 17, 2014 1 tablet Vitamin B-12 [facility] 20947-94310 1,000 mcg August 17, 2014 1 Tablet by Oral route 1 time per day Oxycodone-Acetaminophen [facility] [address]-45 10-325 MG Orally 3 times a day August 17, 2014 1 tablet as needed Omeprazole [facility] [address]-05 40 mg August 11, 2014 1 Capsule by Oral route 1 time per day Cymbalta [facility] [address]-35 30 mg August 17, 2014 take 1 capsule ( 30 mg) by oral route once daily Humalog KwikPen [facility] [address]-39 100 unit/mL Feb 17, 2012 8-10 Unit by Subcutaneous route 3 times per day (8 units q AM & Noon, 10 units q evening) Zofran ODT [facility] [address]-54 4 mg August 11, 2014 take 1 tablets by Oral route every 8 hours PRN Nausea or Vomiting Cyclobenzaprine HCl [facility] 50448377463 10 mg 1 TAB(S) 3 TIMES A DAY ORALLY 30 Reglan [facility] [address]-58 10 MG Orally 4 times a day Jan 31, 2015 as directed Xarelto [facility] [address]-50 20 mg August 11, 2014 1 Tablet by Oral route 1 time per day Erythromycin Base Coated [facility] [address]-84 500 MG Orally 3 times a day 1 tablet zolpidem [facility] 0 10 mg Once a day Feb 17, 2012 take 1 tablet Lantus SoloStar [facility] [address]-13 100 unit/mL (3 mL) Feb 17, 2012 30 units by Subcutaneous route 1 time per day Procedures Procedure Coding System Code Date Office Visit, Est Pt., Level 3 CPT-4 24191 Jan 31, 2015 Vital Signs Date/Time: Jan 31, 2015 Temperature 98.9 F Weight 103 lbs Height 62 in BMI 18.84 Index Blood Pressure Diastolic 70 mmHg Blood Pressure Systolic 118 mmHg Cardiac Monitoring Heart Rate 88 bpm Results No Known Results Summary Purpose eClinicalWorks Submission
--- OUTSIDE RECORDS SUMMARY | 2016-09-17 09:18 | XMS REPORT ---
Author Author HORACE HIGGINS [facility] Address [address] [place] [address] Care Team Providers Care Chronometer Assembler Name Role Phone HORACE HIGGINS Unavailable PROBLEMS Type Condition ICD9-CM Code VDL99-JS Code Onset Dates Condition Status SNOMED Code Problem Gastroparesis K31.84 Active 433820487 Problem Back pain M54.9 Active 942308075 Problem Neuropathy G62.9 Active 143785781 Assessment Type 2 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 Mar, Active 98842770 Problem Depressive disorder, not elsewhere classified 311 Active 37999867 Problem Uncomplicated asthma, unspecified asthma severity J45.909 Active 778109920 Problem Type 2 diabetes mellitus without complications E11.9 Active 984226656 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
--- OUTSIDE RECORDS SUMMARY | 2016-09-17 09:18 | XMS REPORT ---
Author Author HORACE HIGGINS [facility] eClinicalWorks Address Unknown Phone Unavailable Care Team Providers Care Sugar Presser Name Role Phone HORACE HIGGINS CP Unavailable [...] Start Date End Date Status Dosage Oxycodone-Acetaminophen [facility] [address]-87 10-325 MG Orally 3 times a day ONE TABLET Results No Known Results Summary Purpose eClinicalWorks Submission
--- OUTSIDE RECORDS SUMMARY | 2016-09-17 09:18 | XMS REPORT ---
Author Author HORACE HIGGINS [facility] eClinicalWorks Address Unknown Phone Unavailable Care Team Providers Care Pants Presser Automatic Name Role Phone HORACE HIGGINS CP Unavailable Allergies No Known Allergies Problems Problem Type Condition Code Onset Dates Condition Status Problem Depressive disorder, not elsewhere classified 311 Active Problem Neuropathy G62.9 Active Problem Gastroparesis K31.84 Active Assessment Neuropathy G62.9 Active Problem Type 2 diabetes mellitus without complications E11.9 Active Problem Mixed hyperlipidemia E78.2 Active Problem Uncomplicated asthma, unspecified asthma severity J45.909 Active Problem Diabetes E11.9 Active Problem Back pain M54.9 Active Problem 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 [address]-00 200 mg Orally 3 times a day December 07, 2015 1 capsule Results No Known Results Summary Purpose eClinicalWorks Submission
--- OUTSIDE RECORDS SUMMARY | 2016-09-17 09:18 | XMS REPORT ---
Author Author HORACE HIGGINS [facility] eClinicalWorks Address Unknown Phone Unavailable Care Team Providers Care Peace Officer Name Role Phone HORACE HIGGINS CP Unavailable Allergies No Known Allergies Problems Problem Type Condition Code Onset Dates Condition Status Problem Back pain M54.9 Active Problem Neuropathy G62.9 Active Problem Diabetes E11.9 Active Assessment Other dorsalgia M54.89 Active Problem Gastroparesis K31.84 Active Problem Depressive disorder, not elsewhere classified 311 Active Medications Medication Code System Code Instructions Start Date End Date Status Dosage Oxycodone-Acetaminophen [facility] [address]-61 10-325 MG Orally 3 times a day ONE TABLET Results No Known Results Summary Purpose eClinicalWorks Submission
--- OUTSIDE RECORDS SUMMARY | 2016-09-17 09:19 | XMS REPORT ---
Author Author HORACE HIGGINS [facility] eClinicalWorks Address Unknown Phone Unavailable Care Team Providers Care Acoustical Tile Drill Press Operator Name Role Phone HORACE HIGGINS CP Unavailable Allergies No Known Allergies Problems Problem Type Condition Code Onset Dates Condition Status Problem Depressive disorder, not elsewhere classified 311 Active Problem Neuropathy G62.9 Active Problem Gastroparesis K31.84 Active Assessment Type 2 diabetes mellitus without complications E11.9 Active Problem Type 2 diabetes mellitus without complications E11.9 Active Problem Mixed hyperlipidemia E78.2 Active Problem Uncomplicated asthma, unspecified asthma severity J45.909 Active Problem Diabetes E11.9 Active Problem Back pain M54.9 Active Problem Type 2 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
--- OUTSIDE RECORDS SUMMARY | 2016-09-17 09:19 | XMS REPORT ---
Author Author HORACE HIGGINS [facility] eClinicalWorks Address Unknown Phone Unavailable Care Team Providers Care Ginseng Farmer Name Role Phone HORACE HIGGINS CP Unavailable [...]
--- OUTSIDE RECORDS SUMMARY | 2016-09-17 09:19 | XMS REPORT ---
Author HORACE Soto [facility] eClinicalWorks Address Unknown Phone Unavailable Care Team Providers Care Auto Carrier Driver Name Role Phone HORACE HIGGINS CP Unavailable [...] Unspecified myalgia and myositis 729.1 Active Assessment Back pain 724.5 Active Problem Depressive disorder, not elsewhere classified [...] Instructions Start Date End Date Status Dosage Gabapentin [facility] [address]-28 300 MG Orally Three times a day Dec 24, 2014 1 capsule zolpidem [facility] 0 10 mg Once a day Feb 17, 2012 take 1 tablet Reglan [facility] [address]-26 5 mg August 17, 2014 take 1 tablet by Oral route 3 times per day Humalog KwikPen [facility] [address]-53 100 unit/mL Feb 17, 2012 8-10 Unit by Subcutaneous route 3 times per day (8 units q AM & Noon, 10 units q evening) Albuterol Sulfate [facility] [address]-96 90 mcg/actuation August 17, 2014 inhale 2 puffs by Inhalation route 4 times per day as needed PRN Cymbalta [facility] [address]-75 30 mg August 17, 2014 take 1 capsule ( 30 mg) by oral route once daily Omeprazole [facility] [address]-18 40 mg August 11, 2014 1 Capsule by Oral route 1 time per day Xarelto [facility] [address]-42 20 mg August 11, 2014 1 Tablet by Oral route 1 time per day Landaniella Knutsonar [facility] [address]-09 100 unit/mL (3 mL) Feb 17, 2012 30 units by Subcutaneous route 1 time per day cyclobenzaprine [facility] [address]-15 10 mg December 03, 2012 1 tablet 3 times per day PRN at hs Vitamin B-12 [facility] [address]5925-[address]17 1,000 mcg August 17, 2014 1 Tablet by Oral route 1 time per day Neurontin [facility] [address]-98 600 MG Orally Three times a day Jan 05, 2015 1 capsule Lexapro [facility] [address]-67 20 mg Feb 17, 2012 take 1 tablet (20 mg ) by oral route once daily Zofran ODT [facility] [address]-87 4 mg August 11, 2014 take 1 tablets by Oral route every 8 hours PRN Nausea or Vomiting Oxycodone-Acetaminophen [facility] [address]-62 10-325 MG Orally 3 times a day August 17, 2014 1 tablet as needed Erythromycin Base Coated [facility] [address]-15 500 MG Orally 3 times a day 1 tablet Carisoprodol [facility] [address]-58 350 MG Orally Four times a day 1 tablet as needed Procedures Procedure Coding System Code Date Office Visit, Est Pt., Level 4 CPT-4 26823 Jan 05, 2015 [facility] VISIT ESTABLISHED PATIENT CPT-4 G0467 Jan 05, 2015 Vital Signs Date/Time: Jan 05, 2015 Temperature 97.9 F Weight 99.2 lbs Height 62 in BMI 18.14 Index Blood Pressure Diastolic 76 mmHg Blood Pressure Systolic 124 mmHg Cardiac Monitoring Heart Rate 104 bpm Results Name Result Date Reference Range Unit Abnormality Flag Gastric Emptying Study Summary Purpose eClinicalWorks Submission
--- OUTSIDE RECORDS SUMMARY | 2016-09-17 09:20 | XMS REPORT ---
Author Author HORACE HIGGINS [facility] eClinicalWorks Address Unknown Phone Unavailable Care Team Providers Care Life Science Teacher Name Role Phone HORACE HIGGINS CP Unavailable [...] Instructions Start Date End Date Status Dosage [facility] [address]-99 5 MG Orally 3 times a day August 17, 2014 1 tablet Results No Known Results Summary Purpose eClinicalWorks Submission
--- OUTSIDE RECORDS SUMMARY | 2016-09-17 09:20 | XMS REPORT ---
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
--- OUTSIDE RECORDS SUMMARY | 2016-09-17 09:20 | XMS REPORT ---
Author Author HORACE HIGGINS [facility] eClinicalWorks Address Unknown Phone Unavailable Care Team Providers Care Serology Technician Name Role Phone HORACE HIGGINS CP [...] Date End Date Status Dosage Oxycodone-Acetaminophen [facility] [address]-34 10-325 MG Orally 3 times a day ONE TABLET Results No Known Results Summary Purpose eClinicalWorks Submission
--- OUTSIDE RECORDS SUMMARY | 2016-09-17 09:20 | XMS REPORT ---
Author Author HORACE HIGGINS [facility] eClinicalWorks Address Unknown Phone Unavailable Care Team Providers Care Cooker Soda Name Role Phone HORACE HIGGINS CP Unavailable [...] Start Date End Date Status Dosage zolpidem NDC 0 10 mg Once a day Feb 17, 2012 take 1 tablet Results No Known Results Summary Purpose eClinicalWorks Submission
--- OUTSIDE RECORDS SUMMARY | 2016-09-17 09:20 | XMS REPORT ---
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
== END 2016-08-24 15:01 | disposition home or self-care (01) ==
LOC: EDUNIT# 12:03 → ER 12:05
DX: E11.65 Type 2 diabetes mellitus with hyperglycemia (principal); R07.81 Pleurodynia; F17.210 Nicotine dependence, cigarettes, uncomplicated; Z79.4 Long term (current) use of insulin; Z79.899 Other long term (current) drug therapy
CPT/HCPCS: 36415; 71020; 80053; 81000; 82962; 85025; 96374; 96375

== ENCOUNTER 2016-10-04 07:33 | Inpatient (IN) | payer MEDICARE, MEDICAID ==
[~2016-10-04] VITALS: Ht 157.5 cm; Wt 42.2 kg
[2016-10-04] VITALS (13 sets, daily range): BP systolic 74–128; BP diastolic 38–87
[2016-10-04] MEDS ORDERED: fentaNYL INJECTION 100 MCG/2 ML AMP ONE ×2 (07:47→09:24)
--- NOTE | 2016-10-04 07:59 | ED Abdominal Pain ---
General Stated Complaint: SOA Source of Information: Patient, EMS Exam Limitations: No Limitations History of Present Illness Time Seen By Provider: 07:56 Initial Comments 46-year-old white female presents with a history of not using her insulin for the past week. Patient has had associated nausea vomiting and tachypnea. On EMS arrival patient's blood sugar was approximately 500. Patient was transported to the emergency department for further evaluation. Patient states that she has had diffuse abdominal pain, questionable fever and chills, no productive cough, no hematuria or flank pain, no associated headache and stiff neck or visual disturbance, no sore throat, rash, or chest pain. The patient uses Humalog and Lantus for her insulin-dependent diabetes normally. She is under the care of Dr. Horace Higgins. Allergies and Home Medications Allergies Coded Allergies: ketorolac (Unverified Allergy, Severe, 07/07/14) aspirin (Verified Allergy, Unknown, 10/25/13) Uncoded Allergies: NSAIDS (Allergy, Unknown, 10/25/13) COUMADIN (Adverse Reaction, Unknown, 10/25/13) VOMITS BLOOD Home Medications Albuterol Sulfate 8.5 Gm Aer.w.adap, 2 PUFF INH QID PRN for SHORTNESS OF BREATH, (Reported) Cyanocobalamin 1,000 Mcg Tablet, 1,000 MCG PO DAILY, (Reported) Cyclobenzaprine Hcl 10 Mg Tablet, 10 MG PO TID PRN for MUSCLE SPASMS, (Reported) Duloxetine HCl 30 Mg Capsule.dr, 30 MG PO DAILY, (Reported) Erythromycin Base 500 Mg Tablet, 500 MG PO TID, (Reported) Escitalopram Oxalate 20 Mg Tablet, 20 MG PO HS, (Reported) Insulin Glargine,Hum.rec.anlog 300 Unit/3 Ml Insuln.pen, 30 UNITS SQ HS, ( Reported) Insulin Lispro 100 Unit/1 Ml Insuln.pen, 8 UNIT SQ AC AM & NOON, (Reported) Insulin Lispro 100 Unit/1 Ml Insuln.pen, 10 UNIT SQ AC EVENING, (Reported) Metoclopramide Hcl 5 Mg Tablet, 5 MG PO TID, (Reported) Multivitamins W-Iron 1 Tab Tablet, 1 TAB PO DAILY, (Reported) Omeprazole 40 Mg Capsule.dr, 40 MG PO DAILY, (Reported) Ondansetron 4 Mg Tab.rapdis, 4 MG SL Q4H PRN for NAUSEA/VOMITING, #10 Prescribed by: MARCUS RAINEY on 08/14/15 1634 Oxycodone Hcl/Acetaminophen 1 Each Tablet, 1 TAB PO TID PRN for PAIN, (Reported) Polyethylene Glycol 3350 119 Gm Powder, 17 GM PO TID PRN for CONSTIPATION, #1 Prescribed by: MARCUS RAINEY on 08/14/15 1629 Pregabalin 300 Mg Capsule, 300 MG PO BID, (Reported) Zolpidem Tartrate 10 Mg Tablet, 5 MG PO HS for 30 Days You may cut the 10mg tabs in half. 5mg is the new recommended dose for women. Prescribed by: JESS LEVI on 08/03/14 1058 [Rivaroxaban] 20 MG TABLET, 20 MG PO DAILY, #30 Ref 6 Prescribed by: JESS LEVI on 08/03/14 1058 Review of Systems Constitutional: chills EENTM: No Double Vision Respiratory: Denies Cough Cardiovascular: Denies Chest Pain Gastrointestinal: Abdominal Pain, Nausea, Vomiting Genitourinary: Denies Burning, Denies Discharge Musculoskeletal: No back pain Skin: No rash Psychiatric/Neurological: No Symptoms Reported Endocrine: No Symptoms Reported Hematologic/Lymphatic: No Symptoms Reported Past Tqrsidb-Cbemeq-Lolhpz Hx Patient Social History Type Used: Cigarettes Recent Hopitalizations: No Immunizations Up To Date Tetanus Booster (TDap): Less than 5yrs Date of Pneumonia Vaccine: Jul 07, 2014 Date of Influenza Vaccine: Feb 23, 2015 Seasonal Allergies Seasonal Allergies: No Surgeries HX Surgeries: Yes (HERNIA, thoracentesis) Surgeries: Abdominal, Appendectomy, Hysterectomy Respiratory Hx Respiratory Disorders: Yes (HX PULMONARY EMBOLI) Respiratory Disorders: Asthma, Pulmonary Embolism Cardiovascular Hx Cardiac Disorders: No Neurological Hx Neurological Disorders: Yes (FIBROMYALGIA) Neurological Disorders: Neuropathy 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 System Hx 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 Disorders: 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 Genitourinary Hx Genitourinary Disorders: No Gastrointestinal Hx Gastrointestinal Disorders: Yes (gastroparesis) Gastrointestinal Disorders: Gastroesophageal Reflux, Irritable Bowel Musculoskeletal Hx Musculoskeletal Disorders: Yes (lumbar radiculopathy) Musculoskeletal Disorders: Chronic Back Pain Endocrine Hx Endocrine Disorders: Yes Endocrine Disorders: Diabetes, Insulin dep HEENT HX ENT Disorders: No Cancer Hx Cancer: Yes Cancer: Ovarian Psychosocial Hx Psychiatric Problems: Yes Behavioral Health Disorders: Depression Integumentary HX Skin/Integumentary Disorder: No Blood Transfusions Hx Blood Disorders: Yes Adverse Reaction to a Blood Tr: No Reviewed Nursing Assessment Reviewed/Agree w Nursing PMH: Yes Family Medical History Significant Family History: No Pertinent Family Hx Family Medial History: Cardiovascular disease 19 MOTHER (CHF) G8 SISTER (CHF) Cataracts 19 MOTHER Diabetes mellitus 19 MOTHER G8 BROTHER G8 BROTHER G8 SISTER Hypertension 19 MOTHER G8 SISTER Physical Exam Vital Signs VS - Last 72 Hours, by Label 10/04/16 07:35 Temp 97.2 Pulse 132 Resp 18 B/P (MAP) 126/96 O2 Delivery Room Air Capillary Refill : General Appearance: moderate distress HEENT: normal ENT inspection Neck: supple Respiratory: lungs clear Cardiovascular: regular rate, rhythm Gastrointestinal: normal bowel sounds, abnormal bowel sounds (hypoactive bowel sounds were noted) Extremities: normal range of motion, non-tender Back: normal inspection Neurologic/Psychiatric: no motor/sensory deficits, alert, normal mood/affect Skin: normal color, warm/dry Focused Exam Lactic Acid Level Laboratory Tests Test 10/04/16 08:17 Lactic Acid Level 3.02 MMOL/L (0.50-2.00) *H Progress/Results/Core Measures Results/Orders Lab Results Laboratory Tests Test 10/04/16 08:17 10/04/16 08:18 10/04/16 08:45 Range/Units White Blood Count 9.2 4.3-11.0 10^3/uL Red Blood Count 5.97 H 4.35-5.85 10^6/uL Hemoglobin 16.3 H 11.5-16.0 G/DL Hematocrit 49 35-52 % Mean Corpuscular Volume 83 80-99 FL Mean Corpuscular Hemoglobin 27 25-34 PG Mean Corpuscular Hemoglobin Concent 33 32-36 G/DL Red Cell Distribution Width 13.5 10.0-14.5 % Platelet Count 368 130-400 10^3/uL Mean Platelet Volume 11.3 H 7.4-10.4 FL Neutrophils (%) (Auto) 79 H 42-75 % Lymphocytes (%) (Auto) 17 12-44 % Monocytes (%) (Auto) 4 0-12 % Eosinophils (%) (Auto) 0 0-10 % Basophils (%) (Auto) 0 0-10 % Neutrophils # (Auto) 7.3 1.8-7.8 X 10^3 Lymphocytes # (Auto) 1.6 1.0-4.0 X 10^3 Monocytes # (Auto) 0.3 0.0-1.0 X 10^3 Eosinophils # (Auto) 0.0 0.0-0.3 10^3/uL Basophils # (Auto) 0.0 0.0-0.1 10^3/uL Sodium Level 138 135-145 MMOL/L Potassium Level 5.1 H 3.6-5.0 MMOL/L Chloride Level 96 L 98-107 MMOL/L Carbon Dioxide Level 16 L 21-32 MMOL/L Anion Gap 26 H 5-14 MMOL/L Blood Urea Nitrogen 17 7-18 MG/DL Creatinine 1.24 0.60-1.30 MG/DL Estimat Glomerular Filtration Rate 57 BUN/Creatinine Ratio 14 Glucose Level 601 *H 70-105 MG/DL Lactic Acid Level 3.02 *H 0.50-2.00 MMOL/L Calcium Level 10.9 H 8.5-10.1 MG/DL Total Bilirubin 0.6 0.1-1.0 MG/DL Aspartate Amino Transf (AST/SGOT) 16 5-34 U/L Alanine Aminotransferase (ALT/SGPT) 26 0-55 U/L Alkaline Phosphatase 166 H 40-136 U/L Total Protein 8.3 H 6.4-8.2 G/DL Albumin 4.5 3.2-4.5 G/DL Blood Gas Puncture Site RIGHT RADIAL Blood Gas Patient Temperature 98.2 Arterial Blood pH 7.29 *L 7.37-7.43 Arterial Blood Partial Pressure CO2 29 L 35-45 MMHG Arterial Blood Partial Pressure O2 49 L 79-93 MMHG Arterial Blood HCO3 14 *L 23-27 MMOL/L Arterial Blood Total CO2 14.7 L 21.0-31.0 MMOL/L Arterial Blood Oxygen Saturation 77 L 94-100 % Arterial Blood Base Excess -11.6 L -2.5-2.5 MMOL/L Ifeanyi Test POSITIVE Blood Gas Ventilator Setting NO Blood Gas Inspired Oxygen N/A Urine Color YELLOW Urine Clarity CLEAR Urine pH 5 5-9 Urine Specific Woodrow 1.020 1.016-1.022 Urine Protein 3+ H NEGATIVE Urine Glucose (UA) 4+ H NEGATIVE Urine Ketones 4+ H NEGATIVE Urine Nitrite NEGATIVE NEGATIVE Urine Bilirubin NEGATIVE NEGATIVE Urine Urobilinogen NORMAL NORMAL MG/DL Urine Leukocyte Esterase NEGATIVE NEGATIVE Urine RBC (Auto) 2+ H NEGATIVE Urine RBC 0-2 /HPF Urine WBC RARE /HPF Urine Squamous Epithelial Cells 2-5 /HPF Urine Crystals NONE /LPF Urine Bacteria TRACE /HPF Urine Casts NONE /LPF Urine Mucus NEGATIVE /LPF Urine Culture Indicated NO My Orders Orders - JERMAN LEWIS MD Fentanyl Injection (Sublimaze Injection (10/04/16 07:47) Cbc With Automated Diff (10/04/16 07:53) Comprehensive Metabolic Panel (10/04/16 07:53) Ua Culture If Indicated (10/04/16 07:53) Lactic Acid Analyzer (10/04/16 07:53) Blood Culture (10/04/16 07:53) Ns Iv 1000 Ml (Sodium Chloride 0.9%) (10/04/16 08:00) Arterial Blood Gas (10/04/16 08:08) Insulin Regular Tpn/Drip Only (Humulin R (10/04/16 08:30) Ceftriaxone Injection (Rocephin Injectio (10/04/16 09:00) Medications Given in ED Current Medications Medications Dose Ordered Sig/Jenifer Route Start Time Stop Time Status Last Admin Dose Admin Ceftriaxone Sodium 2000 mg/ Sodium Chloride 50 ml @ 100 mls/hr ONCE ONCE IV 10/04/16 09:00 10/04/16 09:29 DC 10/04/16 09:30 100 MLS/HR Fentanyl Citrate 100 mcg STK-MED ONCE .ROUTE 10/04/16 07:47 10/04/16 07:51 DC 10/04/16 07:52 50 MCG Vital Signs/I&O Vital Sign - Last 12Hours 10/04/16 07:35 Temp 97.2 Pulse 132 Resp 18 B/P (MAP) 126/96 O2 Delivery Room Air Progress Note : Time: 09:35 Progress Note The patient received brisk IV fluids in the emergency department and an insulin drip. The patient's arterial blood gases done showed a pH of 729. The patient' s lactic acid was elevated at 3.2. The patient received an insulin drip initially at 8 units an hour. The patient had blood cultures done and received 2 g of Rocephin IV. There was basilar atelectasis noted on patient's chest x- ray but no definite infiltrate. Telephone consultation was undertaken with Dr. Weiss who is kind enough to admit the patient to the ICU. Departure Communication Time/Spoke to Admitting Phy: 09:[address] Weiss. Impression Impression: Primary Impression: DKA (diabetic ketoacidoses) Qualified Codes: E10.10 - Type 1 diabetes mellitus with ketoacidosis without coma Disposition: 09 ADMITTED INPATIENT Condition: Improved Decision to Admit Reason: Admit from ER (General) Decision to Admit/Date: October 04, 2016 Time/Decision to Admit Time: 09:40 Departure-Patient Inst. Referrals: HORACE HIGGINS MD (PCP/Family) Primary Care Physician JERMAN LEWIS MD October 04, 2016 07:59
[2016-10-04 08:24] LABS: ABG BASE EXCESS -11.6 MMOL/L (-2.5-2.5); ABG OXYGEN SATURATION 77 % (94-100); ABG PCO2 29 MMHG (35-45); ABG PO2 49 MMHG (79-93); ABG TCO2 14.7 MMOL/L (21.0-31.0)
[2016-10-04 08:25] LABS: ABG PH 7.29 (7.37-7.43)
[2016-10-04 08:25] LABS: BASOPHILS % (AUTO) 0 % (0-10); EOSINOPHILS % (AUTO) 0 % (0-10); LYMPHOCYTES # (AUTO) 1.6 X 10^3 (1.0-4.0); LYMPHOCYTES % (AUTO) 17 % (12-44); MEAN CORPUSCULAR HEMOGLOBIN 27 PG (25-34); MEAN CORPUSCULAR HGB CONC 33 G/DL (32-36); MEAN CORPUSCULAR VOLUME 83 FL (80-99); MEAN PLATELET VOLUME 11.3 FL (7.4-10.4); MONOCYTES # (AUTO) 0.3 X 10^3 (0.0-1.0); MONOCYTES % (AUTO) 4 % (0-12); NEUTROPHILS # (AUTO) 7.3 X 10^3 (1.8-7.8); NEUTROPHILS % (AUTO) 79 % (42-75); PLATELET COUNT 368 10^3/uL (130-400); RED BLOOD COUNT 5.97 10^6/uL (4.35-5.85); RED CELL DISTRIBUTION WIDTH 13.5 % (10.0-14.5); WHITE BLOOD COUNT 9.2 10^3/uL (4.3-11.0)
[2016-10-04 08:26] LABS: ABG HCO3 14 MMOL/L (23-27); ALLENS TEST POSITIVE; PATIENT TEMP 98.2
[2016-10-04] MEDS ORDERED: inSUlin REGULAR TPN/DRIP ONLY 250 UNITS in NORMAL SALINE 250 ML IV SCH (08:30)
[2016-10-04 08:44] LABS: ALBUMIN 4.5 G/DL (3.2-4.5); BILIRUBIN,TOTAL 0.6 MG/DL (0.1-1.0); CALCIUM 10.9 MG/DL (8.5-10.1); CREATININE SERUM 1.24 MG/DL (0.60-1.30); POTASSIUM 5.1 MMOL/L (3.6-5.0); TOTAL PROTEIN 8.3 G/DL (6.4-8.2)
[2016-10-04 09:00] LABS: BILIRUBIN,URINE NEGATIVE (NEGATIVE); KETONES,URINE 4+ (NEGATIVE); LEUKOCYTE ESTERASE ,URINE NEGATIVE (NEGATIVE); NITRITE,URINE NEGATIVE (NEGATIVE); PH,URINE 5 (5-9); PROTEIN,URINE 3+ (NEGATIVE); UROBILINOGEN,URINE NORMAL (NORMAL)
[2016-10-04] MEDS ORDERED: cefTRIAXone INJECTION 2,000 MG in NS (IVPB) 50 ML IV ONE (09:00)
[2016-10-04] MEDS: NS IV 1000 ML 1,000 ML IV SCH ×2 (09:00→11:59)
[2016-10-04 09:11] LABS: WBC,URINE RARE /HPF
[2016-10-04] MEDS ORDERED: cefTRIAXone 1 GM (ROCEPHIN) VIAL ONE (09:21)
[2016-10-04] MEDS ORDERED: SODIUM CHLORIDE (ADD-VANTAGE) 100 ML IV ONE (09:21)
[2016-10-04] MEDS ORDERED: NS IV 1000 ML 1,000 ML IV SCH (10:15)
[2016-10-04] MEDS ORDERED: inSUlin REGULAR TPN/DRIP 250 UNITS/NS 250 ML IV SCH ×2 (10:30)
[2016-10-04] MEDS: 1/2 NS W/KCL 20 MEQ/L 1,000 ML IV SCH ×3 (11:29→15:44)
[2016-10-04] MEDS: POTASSIUM CL 10MEQ/50ML IVPB X 4 (TOTAL 40 MEQ) IV SCH ×2 (11:57→11:59)
[2016-10-04] MEDS: DEXTROSE 10% IV SOLUTION 1,000 ML IV SCH ×2 (11:58→20:30)
[2016-10-04] MEDS: D5 1/2 NS IV 1,000 ML IV SCH ×4 (11:59→22:30)
[2016-10-04] MEDS ORDERED: GABA600T2 PO (12:14)
[2016-10-04] MEDS ORDERED: INSU100I23 SQ (12:14)
[2016-10-04] MEDS ORDERED: METO10TA3 PO (12:14)
[2016-10-04] MEDS ORDERED: INSU100I10 SQ (12:14)
[2016-10-04] MEDS ORDERED: RIVA20TA PO (12:14)
[2016-10-04] MEDS ORDERED: VARE1TAB21 PO (12:14)
[2016-10-04] MEDS ORDERED: OMEP40CA36 PO (12:14)
[2016-10-04] MEDS ORDERED: ZOLP10TA5 PO (12:14)
[2016-10-04] MEDS ORDERED: ESCI20TA45 PO (12:14)
[2016-10-04] MEDS ORDERED: OXYC-465 PO (12:14)
[2016-10-04] MEDS ORDERED: CIPR250T3 PO (12:14)
[2016-10-04] MEDS ORDERED: DULO30CA48 PO (12:14)
[2016-10-04] MEDS ORDERED: POLY255P PO (12:14)
[2016-10-04] MEDS ORDERED: METR500T21 PO (12:14)
[2016-10-04] MEDS ORDERED: CYCL10TA9 PO (12:14)
[2016-10-04] MEDS ORDERED: DRON5CAP PO (12:14)
[2016-10-04] MEDS ORDERED: ACET-93 PO (12:17)
[2016-10-04 12:44] LABS: ANION GAP 16 MMOL/L (5-14); BLOOD UREA NITROGEN 15 MG/DL (7-18); BUN/CREATININE RATIO 16; CALCIUM 9.2 MG/DL (8.5-10.1); CARBON DIOXIDE 17 MMOL/L (21-32); CHLORIDE 106 MMOL/L (98-107); CREATININE SERUM 0.91 MG/DL (0.60-1.30); GFR ESTIMATED > 60; GLUCOSE 255 MG/DL (70-105); POTASSIUM 4.4 MMOL/L (3.6-5.0); SODIUM 139 MMOL/L (135-145)
[2016-10-04] MEDS: fentaNYL INJECTION 100 MCG/2 ML AMP IVP PRN ×2 (13:46→17:38)
[2016-10-04] MEDS: ONDANSETRON 4 MG/2 ML (SDV) Z0FRAN IVP PRN ×3 (13:46→21:25)
--- NOTE | 2016-10-04 13:55 | Diagnostic Imaging Report ---
INDICATION: PICC placement. Comparison: 08/24/2016. Findings: Right PICC has tip in the lower SVC near the superior cavoatrial junction. Normal lung volume. No focal airspace disease in the visible lung. No pleural effusion or pneumothorax. Normal heart size and pulmonary vasculature. IMPRESSION: 1. Right PICC has tip at the superior cavoatrial junction. Dictated by: Dictated on workstation # [id number]
[2016-10-04] MEDS ORDERED: D5 1/2 NS W/KCL 20 MEQ/L 1,000 ML IV ONE ×2 (15:47→20:21)
[2016-10-04] MEDS ORDERED: NON-FORMULARY MEDICATION 1 EA EA (Omeprazole 40 MG) PO SCH (16:15)
[2016-10-04] MEDS: PANTOPRAZOLE 40 MG (PROTONIX) TAB PO SCH (17:18)
--- NOTE | 2016-10-04 17:20 | History & Physicial (CHS) ---
HPI History of Present Illness: 46 yo F with known IDDM that came in today because of worsening nausea, vomiting and abdominal pain. Patient states that she has not taken her insulin since friday because she has not been feeling well and has not had much to eat. She has been losing weight but could not quantify how much. + chills that started last night. Denies dysuria and cough. + polydipsia. Not sure what her last A1c was running at. States that she has still been taking her blood sugars at home this past week and they have been running in the 300s. Normally she runs 100-120. Source: patient, family, RN/MD Exam Limitations: no limitations Date seen by provider: October 04, 2016 Attending Physician Betsy Weiss MD PCP Chuck Frias MD Consult Date of Admission October 04, 2016 at 09:09 Home Medications Home Medications Reviewed patient Home Medication Reconciliation Form Allergies Coded Allergies: ketorolac (Unverified Allergy, Severe, 07/07/14) aspirin (Verified Allergy, Unknown, 10/25/13) Uncoded Allergies: NSAIDS (Allergy, Unknown, 10/25/13) COUMADIN (Adverse Reaction, Unknown, 10/25/13) VOMITS BLOOD FMY-Akacym-Uojtre Hx Patient Social History Alcohol Use: Denies Use Recreational Drug Use: No Smoking Status: Current Everyday Smoker Type Used: Cigarettes Recent Foreign Travel: No Contact w/other who traveled: No Recent Hopitalizations: No Recent Infectious Disease Expo: No Physical Abuse Screen: No Sexual Abuse: No Immunizations Up To Date Tetanus Booster (TDap): Less than 5yrs Date of Pneumonia Vaccine: Jul 07, 2014 Date of Influenza Vaccine: Feb 23, 2015 Past Medical History IDDM h/o PE after surgery 2014 Family Medical History Significant Family History: No Pertinent Family Hx Family History: Cardiovascular disease 19 MOTHER (CHF) G8 SISTER (CHF) Cataracts 19 MOTHER Diabetes mellitus 19 MOTHER G8 BROTHER G8 BROTHER G8 SISTER Hypertension 19 MOTHER G8 SISTER Review of Systems (CHC) Constitutional: chills, fever, malaise, weakness EENTM: no symptoms reported Respiratory: no symptoms reported, No cough, No dyspnea on exertion, No short of breath Cardiovascular: no symptoms reported, No chest pain, No edema, No palpitations Gastrointestinal: abdominal pain, diarrhea, heartburn, loss of appetite, nausea , vomiting Genitourinary: No dysuria, frequency, No hematuria : No Musculoskeletal: muscle pain Skin: no symptoms reported, No lesions, No rash Psychiatric/Neurological: No Symptoms Reported, Denies Anxiety, Denies Depressed Reviewed Test Results Reviewed Test Results Lab Laboratory Tests Test 10/04/16 08:17 10/04/16 08:18 10/04/16 08:45 10/04/16 10:00 Range/Units White Blood Count 9.2 4.3-11.0 10^3/uL Red Blood Count 5.97 H 4.35-5.85 10^6/uL Hemoglobin 16.3 H 11.5-16.0 G/DL Hematocrit 49 35-52 % Mean Corpuscular Volume 83 80-99 FL Mean Corpuscular Hemoglobin 27 25-34 PG Mean Corpuscular Hemoglobin Concent 33 32-36 G/DL Red Cell Distribution Width 13.5 10.0-14.5 % Platelet Count 368 130-400 10^3/uL Mean Platelet Volume 11.3 H 7.4-10.4 FL Neutrophils (%) (Auto) 79 H 42-75 % Lymphocytes (%) (Auto) 17 12-44 % Monocytes (%) (Auto) 4 0-12 % Eosinophils (%) (Auto) 0 0-10 % Basophils (%) (Auto) 0 0-10 % Neutrophils # (Auto) 7.3 1.8-7.8 X 10^3 Lymphocytes # (Auto) 1.6 1.0-4.0 X 10^3 Monocytes # (Auto) 0.3 0.0-1.0 X 10^3 Eosinophils # (Auto) 0.0 0.0-0.3 10^3/uL Basophils # (Auto) 0.0 0.0-0.1 10^3/uL Sodium Level 138 135-145 MMOL/L Potassium Level 5.1 H 3.6-5.0 MMOL/L Chloride Level 96 L 98-107 MMOL/L Carbon Dioxide Level 16 L 21-32 MMOL/L Anion Gap 26 H 5-14 MMOL/L Blood Urea Nitrogen 17 7-18 MG/DL Creatinine 1.24 0.60-1.30 MG/DL Estimat Glomerular Filtration Rate 57 BUN/Creatinine Ratio 14 Glucose Level 601 *H 70-105 MG/DL Lactic Acid Level 3.02 *H 0.50-2.00 MMOL/L Calcium Level 10.9 H 8.5-10.1 MG/DL Total Bilirubin 0.6 0.1-1.0 MG/DL Aspartate Amino Transf (AST/SGOT) 16 5-34 U/L Alanine Aminotransferase (ALT/SGPT) 26 0-55 U/L Alkaline Phosphatase 166 H 40-136 U/L Total Protein 8.3 H 6.4-8.2 G/DL Albumin 4.5 3.2-4.5 G/DL Blood Gas Puncture Site RIGHT RADIAL Blood Gas Patient Temperature 98.2 Arterial Blood pH 7.29 *L 7.37-7.43 Arterial Blood Partial Pressure CO2 29 L 35-45 MMHG Arterial Blood Partial Pressure O2 49 L 79-93 MMHG Arterial Blood HCO3 14 *L 23-27 MMOL/L Arterial Blood Total CO2 14.7 L 21.0-31.0 MMOL/L Arterial Blood Oxygen Saturation 77 L 94-100 % Arterial Blood Base Excess -11.6 L -2.5-2.5 MMOL/L Ifeanyi Test POSITIVE Blood Gas Ventilator Setting NO Blood Gas Inspired Oxygen N/A Urine Color YELLOW Urine Clarity CLEAR Urine pH 5 5-9 Urine Specific [place] 1.020 1.016-1.022 Urine Protein 3+ H NEGATIVE Urine Glucose (UA) 4+ H NEGATIVE Urine Ketones 4+ H NEGATIVE Urine Nitrite NEGATIVE NEGATIVE Urine Bilirubin NEGATIVE NEGATIVE Urine Urobilinogen NORMAL NORMAL MG/DL Urine Leukocyte Esterase NEGATIVE NEGATIVE Urine RBC (Auto) 2+ H NEGATIVE Urine RBC 0-2 /HPF Urine WBC RARE /HPF Urine Squamous Epithelial Cells 2-5 /HPF Urine Crystals NONE /LPF Urine Bacteria TRACE /HPF Urine Casts NONE /LPF Urine Mucus NEGATIVE /LPF Urine Culture Indicated NO Glucometer 447 *H 70-110 MG/DL Test 10/04/16 10:32 10/04/16 11:05 10/04/16 12:10 10/04/16 12:19 Range/Units Lactic Acid Level 2.37 *H 1.97 0.50-2.00 MMOL/L Glucometer 356 H 251 H 70-110 MG/DL Sodium Level 139 135-145 MMOL/L Potassium Level 4.4 3.6-5.0 MMOL/L Chloride Level 106 98-107 MMOL/L Carbon Dioxide Level 17 L 21-32 MMOL/L Anion Gap 16 H 5-14 MMOL/L Blood Urea Nitrogen 15 7-18 MG/DL Creatinine 0.91 0.60-1.30 MG/DL Estimat Glomerular Filtration Rate > 60 BUN/Creatinine Ratio 16 Glucose Level 255 H 70-105 MG/DL Calcium Level 9.2 8.5-10.1 MG/DL Test 10/04/16 12:58 10/04/16 13:53 10/04/16 14:26 10/04/16 15:31 Range/Units Glucometer 161 H 144 H 116 H 143 H 70-110 MG/DL Test 10/04/16 16:53 Range/Units Glucometer 190 H 70-110 MG/DL Radiology Date of Exam: 10/04/16 CHEST 1 VIEW, AP/PA ONLY INDICATION: PICC placement. Comparison: 08/24/2016. Findings: Right PICC has tip in the lower SVC near the superior cavoatrial junction. Normal lung volume. No focal airspace disease in the visible lung. No pleural effusion or pneumothorax. Normal heart size and pulmonary vasculature. IMPRESSION: 1. Right PICC has tip at the superior cavoatrial junction. Physical Exam-([facility]) Physical Exam Vital Signs VS - Last 72 Hours, by Label 10/04/16 10/04/16 10/04/16 10/04/16 07:35 09:44 09:58 12:00 Temp 97.2 98.7 98.2 Pulse 132 124 112 Resp 18 18 22 B/P (MAP) 126/96 123/87 Pulse Ox 99 100 O2 Delivery Room Air Room Air Room Air 10/04/16 10/04/16 10/04/16 10/04/16 12:00 13:00 16:00 16:00 Temp 98.6 Pulse 102 B/P (MAP) Pulse Ox 97 100 O2 Delivery Room Air Capillary Refill : Less Than 3 Seconds General Appearance: WD/WN, no apparent distress, thin HEENT: PERRL/EOMI Neck: non-tender, full range of motion, supple, normal inspection Respiratory: chest non-tender, lungs clear, normal breath sounds, no respiratory distress, no accessory muscle use Cardiovascular: normal peripheral pulses, regular rate, rhythm, no edema, no gallop, no JVD, no murmur Gastrointestinal: normal bowel sounds, soft, no organomegaly, No guarding, No rebound, tenderness (epigastric) Extremities: normal range of motion, non-tender, normal inspection, no pedal edema, no calf tenderness, normal capillary refill 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, no motor/sensory deficits, alert, normal mood/affect, oriented x 3 Skin: normal color, warm/dry Lymphatic: no adenopathy Assessment/Plan Assessment/Plan Plan 46 yo F with known IDDM admitted for DKA Plan DKA with known IDDM - Start insulin drip - LA trending down - Aggressive fluid hydration - A1c pending - Q4hr BMP to monitor acidosis Nausea and vomiting - Aggressive IVF hydration, Zofran for nausea h/o PE - Continue home xarelto FEN: NPO until patient is ready to eat then advance as tolerated DVT PPX: Xarelto Dispo: Admit to ICU for insulin drip Diagnosis/Problems: Clinical Quality Measures DVT/VTE Risk/Contraindication: Risk Factor Score Per Nursin RFS Level Per Nursing on Admit: 1=Low/No VTE PPX Copy Copies To 1: BETSY WEISS MD, HOLLY R MD October 04, 2016 17:20
[2016-10-04] MEDS ORDERED: NON-FORMULARY MEDICATION 1 EA EA (Insulin Glargine,Hum.rec.anlog (Lantus Solostar) 30 UNIT SQ SCH (19:00)
[2016-10-04] MEDS: inSUlin DETERMIR 1 UNIT/0.01 ML (LEVEMIR) CHARGE PER UNIT SQ SCH (19:23)
[2016-10-04] MEDS ORDERED: inSUlin DETERMIR 1 UNIT/0.01 ML (LEVEMIR) CHARGE PER UNIT SQ SCH (21:00)
[2016-10-04] MEDS ORDERED: NON-FORMULARY MEDICATION 1 EA EA (Zolpidem Tartrate 10 MG) PO SCH (21:00)
[2016-10-04] MEDS ORDERED: POLYETHYLENE GLYCOL 17 GM (MIRALAX) PACK PO PRN (21:00)
[2016-10-04] MEDS: oxyCODONE/APAP 10/325MG (PERCOCET 10) TABLET PO SCH (21:56)
[2016-10-04] MEDS: RIVAROXABAN 20 MG TABLET (XARELTO) PO SCH (21:56)
[2016-10-04] MEDS: ZOLPIDEM 5 MG (AMBIEN) TAB PO SCH (21:57)
[2016-10-05] VITALS (14 sets, daily range): BP systolic 94–133; BP diastolic 56–88
[2016-10-05] MEDS: 1/2 NS W/KCL 20 MEQ/L 1,000 ML IV SCH ×5 (02:00→08:27)
[2016-10-05] MEDS: D5 1/2 NS IV 1,000 ML IV SCH ×3 (02:30→10:32)
[2016-10-05 03:36] LABS: ANION GAP 9 MMOL/L (5-14); BLOOD UREA NITROGEN 7 MG/DL (7-18); BUN/CREATININE RATIO 10; CALCIUM 8.6 MG/DL (8.5-10.1); CARBON DIOXIDE 15 MMOL/L (21-32); CHLORIDE 114 MMOL/L (98-107); GFR ESTIMATED > 60; GLUCOSE 76 MG/DL (70-105); POTASSIUM 4.7 MMOL/L (3.6-5.0); SODIUM 138 MMOL/L (135-145)
[2016-10-05 04:43] LABS: BASOPHILS % (AUTO) 0 % (0-10); EOSINOPHILS # (AUTO) 0.2 10^3/uL (0.0-0.3); EOSINOPHILS % (AUTO) 2 % (0-10); LYMPHOCYTES # (AUTO) 3.1 X 10^3 (1.0-4.0); LYMPHOCYTES % (AUTO) 31 % (12-44); MEAN CORPUSCULAR HEMOGLOBIN 27 PG (25-34); MEAN CORPUSCULAR HGB CONC 33 G/DL (32-36); MEAN CORPUSCULAR VOLUME 84 FL (80-99); MEAN PLATELET VOLUME 10.3 FL (7.4-10.4); MONOCYTES # (AUTO) 0.9 X 10^3 (0.0-1.0); MONOCYTES % (AUTO) 9 % (0-12); NEUTROPHILS # (AUTO) 5.7 X 10^3 (1.8-7.8); NEUTROPHILS % (AUTO) 58 % (42-75); PLATELET COUNT 264 10^3/uL (130-400); RED BLOOD COUNT 4.52 10^6/uL (4.35-5.85); RED CELL DISTRIBUTION WIDTH 13.4 % (10.0-14.5); WHITE BLOOD COUNT 9.9 10^3/uL (4.3-11.0)
[2016-10-05 04:58] LABS: ALANINE AMINOTRANSFERASE 17 U/L (0-55); ALBUMIN 3.2 G/DL (3.2-4.5); ANION GAP 9 MMOL/L (5-14); ASPARTATE AMINO TRANSFERASE 18 U/L (5-34); BILIRUBIN,TOTAL 0.3 MG/DL (0.1-1.0); BLOOD UREA NITROGEN 7 MG/DL (7-18); BUN/CREATININE RATIO 10; CALCIUM 8.5 MG/DL (8.5-10.1); CARBON DIOXIDE 15 MMOL/L (21-32); CHLORIDE 115 MMOL/L (98-107); CREATININE SERUM 0.68 MG/DL (0.60-1.30); GFR ESTIMATED > 60; GLUCOSE 73 MG/DL (70-105); POTASSIUM 4.7 MMOL/L (3.6-5.0); SODIUM 139 MMOL/L (135-145); TOTAL PROTEIN 5.7 G/DL (6.4-8.2)
[2016-10-05] MEDS: ONDANSETRON 4 MG/2 ML (SDV) Z0FRAN IVP PRN ×4 (05:31→17:25)
[2016-10-05] MEDS: DEXTROSE 10% IV SOLUTION 1,000 ML IV SCH (06:30)
[2016-10-05] MEDS: fentaNYL INJECTION 100 MCG/2 ML AMP IVP PRN (06:41)
[2016-10-05] MEDS: PANTOPRAZOLE 40 MG (PROTONIX) TAB PO SCH (08:16)
[2016-10-05] MEDS: oxyCODONE/APAP 10/325MG (PERCOCET 10) TABLET PO SCH ×3 (08:26→20:39)
[2016-10-05] MEDS ORDERED: NS IV 1000 ML 1,000 ML ONE (10:33)
[2016-10-05] MEDS: SUCRALFATE 1 GM (CARAFATE) TAB PO SCH ×2 (10:42→20:39)
[2016-10-05] MEDS: NS IV 1000 ML 1,000 ML IV SCH ×2 (10:42→20:40)
[2016-10-05] MEDS: FAMOTIDINE 20 MG (PEPCID) TABLET PO SCH ×2 (10:42→20:39)
[2016-10-05] MEDS: PROMETHAZINE 25 MG (PHENERGAN) TAB PO PRN (18:52)
[2016-10-05] MEDS ORDERED: ALPRAZolam 0.25 MG (XANAX) TAB PO PRN (19:30)
[2016-10-05] MEDS: RIVAROXABAN 20 MG TABLET (XARELTO) PO SCH (20:39)
[2016-10-05] MEDS: ZOLPIDEM 5 MG (AMBIEN) TAB PO SCH (20:39)
[2016-10-05] MEDS: inSUlin DETERMIR 1 UNIT/0.01 ML (LEVEMIR) CHARGE PER UNIT SQ SCH (23:01)
--- NOTE | 2016-10-05 23:22 | Diagnostic Imaging Report ---
Clinical indication: Patient with abdominal pain with nausea and vomiting x4 days. Exam: CT exam of the abdomen and pelvis is performed without IV or oral contrast using stone protocol. Comparisons: CT scan of the abdomen and pelvis with IV contrast dated 06/06/2016 Findings: Visualized lung bases: There is mild dependent atelectasis in both lung bases. Liver: Unremarkable as visualized. Gallbladder: Unremarkable. Pancreas: Unremarkable as visualized. Spleen: Unremarkable as visualized. Splenules are again seen in the splenic hilum region. Adrenal glands: Unremarkable. Kidneys/ ureters: Stable appearance of both kidneys with no significant abnormality seen. There are no renal stones. Stable mild prominence of the left renal pelvis; this may be related to prominent extrarenal pelvis or UPJ obstruction. There is no hydronephrosis. Aorta: Unremarkable as visualized. Intraabdominal/ retroperitoneal contents: Unremarkable. Intestines: Again seen gastric wall thickening and is incompletely distended. The intestines are otherwise unremarkable as visualized. Appendix: There are surgical sutures seen in the region and appendix is not visualized. Bladder: Partially fluid distended with no gross abnormality. Pelvic organs: Uterus is surgically absent. Bilateral adnexal regions are not visualized on this exam. Extra abdominal/ pelvis regions: Unremarkable. Abdominal wall: Again seen mild diastases of the abdominal muscles. Bones: Unremarkable. Impression: 1: There is no definite acute abdominal or pelvic process. 2: Again seen bowel wall thickening of the stomach which is nonspecific and may possibly be related to contractions. 3: Stable appearance of both kidneys. Possible left renal UPJ obstruction with prominence of the left renal pelvis. There is no hydronephrosis. Dictated by: Dictated on workstation # [id number]
[2016-10-06] VITALS: BP 123/71
[2016-10-06] MEDS: PROMETHAZINE 25 MG (PHENERGAN) TAB PO PRN ×3 (03:14→21:12)
[2016-10-06] MEDS: NS IV 1000 ML 1,000 ML IV SCH ×3 (05:09→21:44)
[2016-10-06] MEDS: PANTOPRAZOLE 40 MG (PROTONIX) TAB PO SCH (05:09)
[2016-10-06 05:18] LABS: BASOPHILS % (AUTO) 1 % (0-10); EOSINOPHILS # (AUTO) 0.3 10^3/uL (0.0-0.3); EOSINOPHILS % (AUTO) 4 % (0-10); LYMPHOCYTES # (AUTO) 2.4 X 10^3 (1.0-4.0); LYMPHOCYTES % (AUTO) 30 % (12-44); MEAN CORPUSCULAR HEMOGLOBIN 27 PG (25-34); MEAN CORPUSCULAR HGB CONC 33 G/DL (32-36); MEAN CORPUSCULAR VOLUME 84 FL (80-99); MEAN PLATELET VOLUME 10.8 FL (7.4-10.4); MONOCYTES # (AUTO) 0.7 X 10^3 (0.0-1.0); MONOCYTES % (AUTO) 9 % (0-12); NEUTROPHILS # (AUTO) 4.6 X 10^3 (1.8-7.8); NEUTROPHILS % (AUTO) 57 % (42-75); PLATELET COUNT 305 10^3/uL (130-400); RED BLOOD COUNT 4.75 10^6/uL (4.35-5.85); RED CELL DISTRIBUTION WIDTH 13.5 % (10.0-14.5); WHITE BLOOD COUNT 8.1 10^3/uL (4.3-11.0)
[2016-10-06 07:20] LABS: ANION GAP 15 MMOL/L (5-14); BLOOD UREA NITROGEN 5 MG/DL (7-18); BUN/CREATININE RATIO 7; CALCIUM 8.9 MG/DL (8.5-10.1); CARBON DIOXIDE 13 MMOL/L (21-32); CHLORIDE 111 MMOL/L (98-107); CREATININE SERUM 0.76 MG/DL (0.60-1.30); GFR ESTIMATED > 60; GLUCOSE 208 MG/DL (70-105); SODIUM 139 MMOL/L (135-145)
[2016-10-06 07:25] LABS: POTASSIUM 4.7 MMOL/L (3.6-5.0)
[2016-10-06 08:00] VITALS: BP 115/74
[2016-10-06] MEDS: FAMOTIDINE 20 MG (PEPCID) TABLET PO SCH ×2 (08:06→21:13)
[2016-10-06] MEDS: SUCRALFATE 1 GM (CARAFATE) TAB PO SCH ×2 (08:06→21:13)
[2016-10-06] MEDS: oxyCODONE/APAP 10/325MG (PERCOCET 10) TABLET PO SCH ×3 (08:06→21:12)
[2016-10-06 12:00] VITALS: BP 105/70
[2016-10-06] MEDS: ONDANSETRON 4 MG/2 ML (SDV) Z0FRAN IVP PRN (15:45)
[2016-10-06 15:53] VITALS: BP 126/83
--- NOTE | 2016-10-06 17:09 | Progress Note (SOAP) ---
Subjective Subjective/Events-last exam Patient states that she is feeling better this AM. Still having some nausea and decreased appetite. + BM. Tolerating ambulation. Mild epigastric pain. Denies shortness of breath, chest pain or dizziness Date seen by provider: October 05, 2016 Time seen by provider: 09:55 Objective Exam Last Set of Vital Signs Vital Signs Date Time Temp Pulse Resp B/P (MAP) Pulse Ox O2 Delivery O2 Flow Rate FiO2 10/06/16 15:53 99.3 99 18 126/83 100 Room Air Capillary Refill : Less Than 3 Seconds I&O Intake and Output 10/06/16 00:00 Intake Total 3670 ml Output Total 5600 ml Balance -1930 ml Intake Oral 150 ml IV Total 3520 ml Output Urine Total 5600 ml # Voids 1 General: Alert, Oriented X3, Cooperative, Other (sleeping in bed, easily arousable) HEENT: Mucous Memb Moist/[place] Lungs: Clear to Auscultation, Normal Air Movement Heart: Regular Rate, No Murmurs Abdomen: Normal Bowel Sounds, Soft, No Hepatosplenomegaly, Other (mild epigastric abdominal pain, no rebound or guarding) Extremities: No Clubbing, No Edema, No Tenderness/Swelling Skin: No Rashes Neuro: Normal Speech, Sensation Intact Psych/Mental Status: Mental Status NL, Mood NL Results/Procedures Lab Laboratory Tests 10/05/16 20:30: Glucometer 103 10/06/16 05:10: White Blood Count 8.1, Red Blood Count 4.75, Hemoglobin 13.0, Hematocrit 40, Mean Corpuscular Volume 84, Mean Corpuscular Hemoglobin 27, Mean Corpuscular Hemoglobin Concent 33, Red Cell Distribution Width 13.5, Platelet Count 305, Mean Platelet Volume 10.8H, Neutrophils (%) (Auto) 57, Lymphocytes (%) (Auto) 30 , Monocytes (%) (Auto) 9, Eosinophils (%) (Auto) 4, Basophils (%) (Auto) 1, Neutrophils # (Auto) 4.6, Lymphocytes # (Auto) 2.4, Monocytes # (Auto) 0.7, Eosinophils # (Auto) 0.3, Basophils # (Auto) 0.0 10/06/16 07:00: Sodium Level 139, Potassium Level 4.7, Chloride Level 111H, Carbon Dioxide Level 13L, Anion Gap 15H, Blood Urea Nitrogen 5L, Creatinine 0.76, Estimat Glomerular Filtration Rate > 60, BUN/Creatinine Ratio 7, Glucose Level 208H, Calcium Level 8.9 10/06/16 10:58: Glucometer 190H 10/06/16 11:03: Lactic Acid Level 0.76 10/06/16 15:56: Glucometer 154H Microbiology 10/04/16 Blood Culture - Preliminary, Resulted No growth Radiology Date of Exam: 10/04/16 CHEST 1 VIEW, AP/PA ONLY INDICATION: PICC placement. Comparison: 08/24/2016. Findings: Right PICC has tip in the lower SVC near the superior cavoatrial junction. Normal lung volume. No focal airspace disease in the visible lung. No pleural effusion or pneumothorax. Normal heart size and pulmonary vasculature. IMPRESSION: 1. Right PICC has tip at the superior cavoatrial junction. Assessment/Plan Assessment/Plan Plan 46 yo F with known IDDM admitted for DKA Plan DKA with known IDDM - DKA resolved, switch to subcutaneous insulin, continue to monitor ACHS blood sugars - Continue fluid hydration - Daily BMP - A1c pending Epigastric Pain - Continue PPI - CT abd pelvis for worsening abdominal pain Nausea and vomiting - Added Phenergan to zofran to alternate for nausea h/o PE - Continue home xarelto FEN: CLD advance as tolerated DVT PPX: Xarelto Dispo: 'transfer to med surg Diagnosis/Problems: Clinical Quality Measures DVT/VTE Risk/Contraindication: Risk Factor Score Per Nursin RFS Level Per Nursing on Admit: 1=Low/No VTE PPX KRISTIN THOMAS MD October 06, 2016 17:09
--- NOTE | 2016-10-06 17:19 | Progress Note (SOAP) ---
Subjective Subjective/Events-last exam Abdominal pain improving but still having severe nausea. Patient states that she is hungry but the smell of food makes her nauseous. No vomiting since yesterday. Not tolerating diet yet. Date seen by provider: October 06, 2016 Time seen by provider: 11:25 Objective Exam Last Set of Vital Signs Vital Signs Date Time Temp Pulse Resp B/P (MAP) Pulse Ox O2 Delivery O2 Flow Rate FiO2 10/06/16 15:53 99.3 99 18 126/83 100 Room Air Capillary Refill : Less Than 3 Seconds I&O Intake and Output 10/06/16 00:00 Intake Total 3670 ml Output Total 5600 ml Balance -1930 ml Intake Oral 150 ml IV Total 3520 ml Output Urine Total 5600 ml # Voids 1 General: Alert, Oriented X3, Cooperative, No Acute Distress Lungs: Clear to Auscultation, Normal Air Movement Heart: Regular Rate, No Murmurs Abdomen: Normal Bowel Sounds, Soft, No Hepatosplenomegaly, No Masses, Other (+ epigastric pain, no rebound or peritoneal signs) Extremities: No Edema, No Tenderness/Swelling Results/Procedures Lab Laboratory Tests 10/05/16 20:30: Glucometer 103 10/06/16 05:10: White Blood Count 8.1, Red Blood Count 4.75, Hemoglobin 13.0, Hematocrit 40, Mean Corpuscular Volume 84, Mean Corpuscular Hemoglobin 27, Mean Corpuscular Hemoglobin Concent 33, Red Cell Distribution Width 13.5, Platelet Count 305, Mean Platelet Volume 10.8H, Neutrophils (%) (Auto) 57, Lymphocytes (%) (Auto) 30 , Monocytes (%) (Auto) 9, Eosinophils (%) (Auto) 4, Basophils (%) (Auto) 1, Neutrophils # (Auto) 4.6, Lymphocytes # (Auto) 2.4, Monocytes # (Auto) 0.7, Eosinophils # (Auto) 0.3, Basophils # (Auto) 0.0 10/06/16 07:00: Sodium Level 139, Potassium Level 4.7, Chloride Level 111H, Carbon Dioxide Level 13L, Anion Gap 15H, Blood Urea Nitrogen 5L, Creatinine 0.76, Estimat Glomerular Filtration Rate > 60, BUN/Creatinine Ratio 7, Glucose Level 208H, Calcium Level 8.9 10/06/16 10:58: Glucometer 190H 10/06/16 11:03: Lactic Acid Level 0.76 10/06/16 15:56: Glucometer 154H Microbiology 10/04/16 Blood Culture - Preliminary, Resulted No growth Radiology Date of Exam: 10/04/16 CHEST 1 VIEW, AP/PA ONLY INDICATION: PICC placement. Comparison: 08/24/2016. Findings: Right PICC has tip in the lower SVC near the superior cavoatrial junction. Normal lung volume. No focal airspace disease in the visible lung. No pleural effusion or pneumothorax. Normal heart size and pulmonary vasculature. IMPRESSION: 1. Right PICC has tip at the superior cavoatrial junction. Assessment/Plan Assessment/Plan Plan 46 yo F with known IDDM admitted for DKA Plan DKA with known IDDM - DKA resolved, switch to subcutaneous insulin, continue to monitor ACHS blood sugars - Continue fluid hydration - Daily BMP - A1c pending Epigastric Pain - Continue PPI - CT abd pelvis for worsening abdominal pain - Consider EGD for continued epigastric pain Nausea and vomiting - Added Phenergan to zofran to alternate for nausea h/o PE - Continue home xarelto FEN: CLD advance as tolerated DVT PPX: Xarelto Dispo: Continue admission to med surg for diet intolerance Diagnosis/Problems: Clinical Quality Measures DVT/VTE Risk/Contraindication: Risk Factor Score Per Nursin RFS Level Per Nursing on Admit: 1=Low/No VTE PPX KRISTIN THOMAS MD October 06, 2016 17:19
[2016-10-06] MEDS: ZOLPIDEM 5 MG (AMBIEN) TAB PO SCH (21:12)
[2016-10-06] MEDS: RIVAROXABAN 20 MG TABLET (XARELTO) PO SCH (21:12)
[2016-10-06] MEDS: inSUlin DETERMIR 1 UNIT/0.01 ML (LEVEMIR) CHARGE PER UNIT SQ SCH (21:12)
[2016-10-07] VITALS: BP 111/73
[2016-10-07] MEDS: NS IV 1000 ML 1,000 ML IV SCH ×4 (05:49→22:08)
[2016-10-07] MEDS: PANTOPRAZOLE 40 MG (PROTONIX) TAB PO SCH (05:50)
[2016-10-07 06:32] LABS: BASOPHILS % (AUTO) 0 % (0-10); EOSINOPHILS # (AUTO) 0.3 10^3/uL (0.0-0.3); EOSINOPHILS % (AUTO) 4 % (0-10); LYMPHOCYTES # (AUTO) 3.9 X 10^3 (1.0-4.0); LYMPHOCYTES % (AUTO) 45 % (12-44); MEAN CORPUSCULAR HEMOGLOBIN 28 PG (25-34); MEAN CORPUSCULAR HGB CONC 33 G/DL (32-36); MEAN CORPUSCULAR VOLUME 84 FL (80-99); MEAN PLATELET VOLUME 10.2 FL (7.4-10.4); MONOCYTES % (AUTO) 11 % (0-12); NEUTROPHILS # (AUTO) 3.5 X 10^3 (1.8-7.8); NEUTROPHILS % (AUTO) 40 % (42-75); PLATELET COUNT 268 10^3/uL (130-400); RED CELL DISTRIBUTION WIDTH 13.5 % (10.0-14.5); WHITE BLOOD COUNT 8.7 10^3/uL (4.3-11.0)
[2016-10-07 06:47] LABS: ANION GAP 11 MMOL/L (5-14); BLOOD UREA NITROGEN 4 MG/DL (7-18); BUN/CREATININE RATIO 6; CARBON DIOXIDE 18 MMOL/L (21-32); CHLORIDE 114 MMOL/L (98-107); CREATININE SERUM 0.68 MG/DL (0.60-1.30); GFR ESTIMATED > 60; POTASSIUM 3.3 MMOL/L (3.6-5.0); SODIUM 143 MMOL/L (135-145)
[2016-10-07 06:49] LABS: GLUCOSE 46 MG/DL (70-105)
[2016-10-07 08:00] VITALS: BP 122/88
[2016-10-07] MEDS: FAMOTIDINE 20 MG (PEPCID) TABLET PO SCH ×2 (08:40→20:05)
[2016-10-07] MEDS: oxyCODONE/APAP 10/325MG (PERCOCET 10) TABLET PO SCH ×3 (08:40→20:05)
[2016-10-07] MEDS: ONDANSETRON 4 MG/2 ML (SDV) Z0FRAN IVP PRN ×2 (08:40→15:59)
[2016-10-07] MEDS: SUCRALFATE 1 GM (CARAFATE) TAB PO SCH ×2 (08:40→20:05)
--- NOTE | 2016-10-07 10:23 | Progress Note-Hospitalist ---
Progress Note Progress Notes/Assess & Plan Date Seen 10/07/16 Diagonsis/Assessment & Plan Patient doing much better but still unable to eat or drink very much Does normally eats well at home Reviewed blood sugars Reviewed labs Reviewed CT scan Has no history of gastroparesis but we'll consult Dr. Singh No fever, vital signs stable, pleasant Frail, thin, clear to auscultation bilaterally A/P: 46 yo F with known IDDM admitted for DKA w/continued N/V unable to eat Plan DKA with known IDDM - DKA resolved, switched to subcutaneous insulin, continue to monitor ACHS blood sugars - Continue fluid hydration - Daily BMP - A1c 12.1 Epigastric Pain - Continue PPI and add Reglan - CT abd pelvis for worsening abdominal pain - Dr Singh EGD for continued epigastric pain Nausea and vomiting - Added Phenergan to zofran to alternate for nausea h/o PE - Continue home xarelto FEN: CLD advance as tolerated DVT PPX: Xarelto Dispo: Continue admission to med surg for diet intolerance VIANEY CEJA DO October 07, 2016 10:23
[2016-10-07] MEDS: METOCLOPRAMIDE INJ 10 MG/2 ML (REGLAN) IVP SCH ×3 (12:05→23:59)
--- NOTE | 2016-10-07 14:11 | Diagnostic Imaging Report ---
PROCEDURE: US Gallbladder. TECHNIQUE: Multiple real-time grayscale images were obtained over the right upper quadrant in various projections. INDICATION: Pain and nausea. FINDINGS: The visualized portions of the pancreas appear unremarkable. The liver is fairly homogeneous with no focal lesion seen. There is patent flow in the portal vein. The CBD is 6 mm in caliber. The gallbladder demonstrates no stones or wall thickening. No pericholecystic fluid. Sonographic Glass sign is reportedly negative. No fluid collection or ascites is seen. IMPRESSION: No gallstones or evidence of cholecystitis. Dictated by: Dictated on workstation # [id number]
[2016-10-07 16:00] VITALS: BP 123/77
[2016-10-07] MEDS: RIVAROXABAN 20 MG TABLET (XARELTO) PO SCH (20:04)
[2016-10-07] MEDS: ZOLPIDEM 5 MG (AMBIEN) TAB PO SCH (20:05)
[2016-10-07] MEDS: inSUlin (REGULAR) HUMAN 1 UNIT/0.01 ML (CHARGE PER UNIT) SC SCH (21:54)
[2016-10-07] MEDS: inSUlin DETERMIR 1 UNIT/0.01 ML (LEVEMIR) CHARGE PER UNIT SQ SCH (22:08)
[2016-10-08 00:15] VITALS: BP 124/83
[2016-10-08] MEDS: METOCLOPRAMIDE INJ 10 MG/2 ML (REGLAN) IVP SCH ×3 (05:14→17:20)
[2016-10-08] MEDS: inSUlin (REGULAR) HUMAN 1 UNIT/0.01 ML (CHARGE PER UNIT) SC SCH (05:14)
[2016-10-08] MEDS: NS IV 1000 ML 1,000 ML IV SCH ×2 (05:20→17:20)
[2016-10-08 05:28] LABS: BASOPHILS % (AUTO) 0 % (0-10); EOSINOPHILS # (AUTO) 0.2 10^3/uL (0.0-0.3); EOSINOPHILS % (AUTO) 3 % (0-10); LYMPHOCYTES % (AUTO) 46 % (12-44); MEAN CORPUSCULAR HEMOGLOBIN 27 PG (25-34); MEAN CORPUSCULAR HGB CONC 33 G/DL (32-36); MEAN CORPUSCULAR VOLUME 82 FL (80-99); MEAN PLATELET VOLUME 10.2 FL (7.4-10.4); MONOCYTES # (AUTO) 0.6 X 10^3 (0.0-1.0); MONOCYTES % (AUTO) 10 % (0-12); NEUTROPHILS # (AUTO) 2.8 X 10^3 (1.8-7.8); NEUTROPHILS % (AUTO) 42 % (42-75); PLATELET COUNT 269 10^3/uL (130-400); RED BLOOD COUNT 4.95 10^6/uL (4.35-5.85); RED CELL DISTRIBUTION WIDTH 13.4 % (10.0-14.5); WHITE BLOOD COUNT 6.7 10^3/uL (4.3-11.0)
[2016-10-08 05:50] LABS: ALANINE AMINOTRANSFERASE 34 U/L (0-55); ALBUMIN 3.5 G/DL (3.2-4.5); ANION GAP 10 MMOL/L (5-14); ASPARTATE AMINO TRANSFERASE 39 U/L (5-34); BILIRUBIN,TOTAL 0.4 MG/DL (0.1-1.0); BLOOD UREA NITROGEN 4 MG/DL (7-18); BUN/CREATININE RATIO 6; CALCIUM 9.2 MG/DL (8.5-10.1); CARBON DIOXIDE 22 MMOL/L (21-32); CHLORIDE 114 MMOL/L (98-107); CREATININE SERUM 0.64 MG/DL (0.60-1.30); GFR ESTIMATED > 60; GLUCOSE 97 MG/DL (70-105); POTASSIUM 3.3 MMOL/L (3.6-5.0); SODIUM 146 MMOL/L (135-145); TOTAL PROTEIN 6.2 G/DL (6.4-8.2)
[2016-10-08 07:19] VITALS: BP 113/81
[2016-10-08] MEDS: PANTOPRAZOLE 40 MG (PROTONIX) TAB PO SCH (07:29)
[2016-10-08] MEDS: SUCRALFATE 1 GM (CARAFATE) TAB PO SCH ×2 (07:37→20:19)
[2016-10-08] MEDS: FAMOTIDINE 20 MG (PEPCID) TABLET PO SCH ×2 (07:38→20:19)
--- NOTE | 2016-10-08 07:52 | CONSULTATION REPORT ---
DATE OF SERVICE: 10/05/2016 DIAGNOSES: 1. Epigastric pain. 2. Nausea. I have been asked by Dr. Jessica Briseno to see this lady admitted with diabetic ketoacidosis. Her glycemic control has been rather difficult. During the hospital admission, she reported ongoing epigastric pain and nausea. Evaluation of the gallbladder is negative for any stones. PHYSICAL EXAMINATION: On examination, she is nauseous and her vital signs are stable. ABDOMEN: Abdominal examination reveals epigastric tenderness with a 2 cm scar resulting from previous hernia repair. DIFFERENTIAL DIAGNOSIS: Gastritis, gastroparesis and peptic ulcers; therefore, it is reasonable to perform an upper endoscopy. This has been scheduled for 10/08/2016. Job ID: [id number] DocumentID: [id number] Dictated Date: 10/07/2016 18:02:44 Violin Tutor Date: 10/08/2016 07:51:47 Dictated By: BROOKLYNN HUGHES MD MTDD
[2016-10-08] MEDS: ONDANSETRON 4 MG/2 ML (SDV) Z0FRAN IVP PRN ×2 (08:12→12:49)
[2016-10-08] MEDS: oxyCODONE/APAP 10/325MG (PERCOCET 10) TABLET PO SCH ×3 (08:12→20:19)
--- NOTE | 2016-10-08 09:09 | Conscious Sedation/ASA ---
Conscious Sedation Pre-Proced Time Reviewed: : ASA Class: 3 Airway Mallampati Classification: ([place] appropriate class) I. II. III, IV Lungs Heart ASA score ASA 1: a normal healthy patient ASA 2: a patient with a mild systemic disease (mid diabetes, controlled hypertension, obesity ASA 3: a patient with a severe systemic disease that limits activity (angina , COPD, prior Myocardial infarction) ASA 4: a patient with an incapacitating disease that is a constant threat to life (CHF, renal failure) ASA 5: a moribund patient not expected to survive 24 hrs. (ruptured aneurysm) ASA 6: a declared brain patient whose organs are being harvested. For emergent operations, add the letter E after the classification Grade 2 Sedation Plan: Discussed options with patient/fam Note The patient is an appropriate candidate to undergo the planned procedure, sedation, and anesthesia. The patient immediately re-assessed prior to indication. BROOKLYNN HUGHES MD October 08, 2016 9:09 am
--- NOTE | 2016-10-08 09:59 | Progress Note-Hospitalist ---
Progress Note Progress Notes/Assess & Plan Date Seen 10/08/16 Diagonsis/Assessment & Plan Patient doing much better but still unable to eat or drink very much Does normally eats well at home Reviewed blood sugars Reviewed labs Reviewed CT scan Has no history of gastroparesis but we'll consult Dr. Singh and he is performing EGD today and we talked about gastric emptying study No fever, vital signs stable, pleasant Frail, thin, clear to auscultation bilaterally A/P: 46 yo F with known IDDM admitted for DKA w/continued N/V unable to eat Plan DKA with known IDDM - DKA resolved, switched to subcutaneous insulin, continue to monitor ACHS blood sugars - Continue fluid hydration - Daily BMP - A1c 12.1 Epigastric Pain - Continue PPI and add Reglan - CT abd pelvis for worsening abdominal pain - Dr Singh EGD for continued epigastric pain and may need gastric emptying study to confirm gastroparesis dx Nausea and vomiting - Added Phenergan to zofran to alternate for nausea h/o PE - Continue home xarelto FEN: CLD advance as tolerated DVT PPX: Xarelto Dispo: Continue admission to med surg for diet intolerance Diff case considering severe DM complication and if indeed is gastroparesis the prognosis is poor VIANEY CEJA DO October 08, 2016 09:59
[2016-10-08] MEDS: POTASSIUM CL 10MEQ/50ML IVPB 50 ML IV SCH ×4 (10:50→16:17)
[2016-10-08] MEDS: inSUlin ASPART (NovoLOG) 1 UNIT/0.01 ML (CHARGE PER UNIT) SC SCH ×3 (10:55→21:38)
[2016-10-08] MEDS ORDERED: NS IV 500 ML 0 ML ONE (15:10)
[2016-10-08] MEDS ORDERED: fentaNYL INJECTION 100 MCG/2 ML AMP ONE (15:14)
[2016-10-08] MEDS: fentaNYL INJECTION 100 MCG/2 ML AMP IVP PRN ×2 (15:14→15:18)
[2016-10-08] MEDS ORDERED: FLUMAZENIL (ROMAZICON) 0.1 MG/ML 5 ML VIAL INJ PRN (15:15)
[2016-10-08] MEDS ORDERED: MIDAZOLAM 2 MG/2 ML (VERSED) VIAL ONE (15:15)
[2016-10-08] MEDS ORDERED: HURRICAINE EXT TUBE (BENZOCAINE) ONE (15:15)
[2016-10-08] MEDS ORDERED: HURRICAINE EXT TUBE (BENZOCAINE) XX PRN (15:15)
[2016-10-08] MEDS ORDERED: NALOXONE 0.4 MG/ML 1 ML (NARCAN) VIAL IVP PRN (15:15)
[2016-10-08] MEDS: MIDAZOLAM 2 MG/2 ML (VERSED) VIAL IVP PRN ×2 (15:15→15:17)
[2016-10-08] MEDS ORDERED: NS IV 500 ML 500 ML IV PRN (15:15)
--- NOTE | 2016-10-08 15:33 | Endoscopy Procedure Report ---
Endoscopy Report Date: October 08, 2016 Preoperative Diagnosis: eepigastric pain and nausea Study Performed: Upper Endoscopy Procedure Instrument: Endoscope Endo Procedure/Findings Findings 1.: Hiatal Hernia, Gastritis Copy Copies To 1: VIANEY CEJA XAVIER M MD October 08, 2016 3:33 pm
[2016-10-08 16:15] VITALS: BP 136/87
[2016-10-08] MEDS: RIVAROXABAN 20 MG TABLET (XARELTO) PO SCH (20:19)
[2016-10-08] MEDS: ZOLPIDEM 5 MG (AMBIEN) TAB PO SCH (20:19)
[2016-10-08] MEDS ORDERED: DULoxetine 30 MG (CYMBALTA) CAP PO SCH (21:00)
[2016-10-08] MEDS: inSUlin DETERMIR 1 UNIT/0.01 ML (LEVEMIR) CHARGE PER UNIT SQ SCH (21:25)
[2016-10-09] VITALS: BP 135/88
[2016-10-09] MEDS: NS IV 1000 ML 1,000 ML IV SCH (01:29)
[2016-10-09] MEDS: METOCLOPRAMIDE INJ 10 MG/2 ML (REGLAN) IVP SCH ×3 (02:10→06:50)
[2016-10-09] MEDS: inSUlin ASPART (NovoLOG) 1 UNIT/0.01 ML (CHARGE PER UNIT) SC SCH (06:46)
[2016-10-09] MEDS: PANTOPRAZOLE 40 MG (PROTONIX) TAB PO SCH (06:50)
[2016-10-09 07:37] VITALS: BP 125/84
--- NOTE | 2016-10-09 08:51 | OPERATIVE REPORT ---
DATE OF SERVICE: 10/08/2016 PROCEDURES PERFORMED: 1. Upper endoscopy with antral biopsy. 2. Excision of gastric polyp. SURGEON: Brooklynn Hughes MD INDICATION FOR PROCEDURE: The patient has been admitted with diabetic ketoacidosis. During the hospital course, severe nausea and epigastric pain came up and therefore, endoscopy was felt to be appropriate. Informed consent was obtained after reviewing the procedure in detail. DESCRIPTION OF PROCEDURE: She was placed in left lateral decubitus position and her vital signs were monitored. Conscious sedation was achieved using Versed and fentanyl. The flexible gastroscope was introduced down the esophagus, passed into the stomach and then into the proximal duodenum. FINDINGS: Esophagus: Grade I esophagitis with a short hiatal hernia. Stomach: 1. Distal gastritis of moderate severity. There was no ulceration. An antral biopsy was obtained for helicobacter status. 2. A few, small polyps were found along the greater curvature. One of them was excised for histological examination. Duodenum: Normal. She tolerated the procedure well and was taken back to the nursing area in stable condition. IMPRESSION: Epigastric pain and nausea. Gastritis. Grade I esophagitis. Helicobacter status pending. Job ID: [id number] DocumentID: [id number] Dictated Date: 10/08/2016 15:30:53 Railroad Construction Director Date: 10/09/2016 08:50:55 Dictated By: BROOKLYNN HUGHES MD [facility]
--- NOTE | 2016-10-09 10:12 | Discharge Summary-Hospitalist ---
Diagnosis/Chief Complaint Date of Admission October 04, 2016 at 09:09 Date of Discharge Discharge Diagnosis A/P: 46 yo F with known IDDM admitted for DKA w/continued N/V unable to eat due to severe gastroparesis and narcotic bowel Plan DKA with known IDDM - DKA resolved, switched to subcutaneous insulin, continue to monitor ACHS blood sugars - Continue fluid hydration - Daily BMP - A1c 12.1 Epigastric Pain - Continue PPI and add Reglan - CT abd pelvis for worsening abdominal pain - Dr Singh EGD for continued epigastric pain and may need gastric emptying study to confirm gastroparesis dx and that will be scheduled as outpt Nausea and vomiting - Added Phenergan to zofran to alternate for nausea h/o PE - Continue home xarelto FEN: CLD advance as tolerated DVT PPX: Xarelto Dispo: Continue admission to med surg for diet intolerance Diff case considering severe DM complication and if indeed is gastroparesis the prognosis is poor ch[facility] but will try to help her in any way possible with diff condition of gastroparesis Reason Hospital Visit/Course Notes from 10/09/16 Patient Interview: Dr. Singh' assessment discussed with pt. Pt was informed that she will have a gastric emptying study to confirm Gastroparesis. Pt states that she takes Reglan QID and has been taking it for a few years. Pt was recently, 09/24/16, in [place] to see gastroenterology. Pt saw Dr. Olivo who took her off erythromycin. Pt states that every time she is on erythromycin and taken off, she gets sick. Pt states that she was put on clarithromycin and another antibiotic instead. Pt states that is when she got sick. Pt states that she was also given Linzess and she believes it helped with her bowels. Pt states that she still has some medicine at home. Pt states hx of bowel obstruction in 2008. Pt will be picked up by her brother upon DC Physical exam stable. Pt confirmed that she uses [facility], [place], O x 3, improved overall and in good spirits RRR, CTAB no rales noted +hyperactive bowel sounds noted Plan: Consult Dr. Olivo Gastroenterology in [place] Follow up with Dr. Frias and Dr. Singh Consult Delia at [facility] about Linzess availability Scribed by Delia Hendrix under the direct supervision of Dr. Ceja. Hospital course: Patient lengthy hospital course due to the difficult condition of gastroparesis that was presumed and will be confirmed with gastric emptying study and conferring with gastroenterology. She overall improved enough Dr. EGD showed mild gastritis that she felt like she was strong enough and able to eat and drink at least a little bit to be able to go home. She denies any other significant issues but chronic pain poses risk for narcotic bowel that further complicates gastroparesis issues. She will have a close follow-up at the [facility] in 2 days along with close follow-up with gastroenterology in addition to Dr. Singh and monitor closely in the meantime. Poor prognosis overall due to smoking history and overall decline status and kpb-ih-naldjfp diabetes now with severe gastroparesis placing risk for malnutrition and subsequent further decline. Discharge Summary Discharge Physical Examination Allergies: Coded Allergies: ketorolac (Verified Allergy, Severe, 10/08/16) aspirin (Verified Allergy, Unknown, 10/25/13) Uncoded Allergies: NSAIDS (Allergy, Unknown, 10/25/13) COUMADIN (Adverse Reaction, Unknown, 10/25/13) VOMITS BLOOD Vitals & I&Os Vital Signs Date Time Temp Pulse Resp B/P (MAP) Pulse Ox O2 Delivery O2 Flow Rate FiO2 10/09/16 07:37 97.8 97 20 125/84 99 Room Air Hospital Course Labs (last 24 hrs) Laboratory Tests 10/08/16 10:53: Glucometer 91 10/08/16 16:16: Glucometer 97 10/08/16 20:49: Glucometer 216H 10/09/16 05:09: Glucometer 88 Microbiology 10/04/16 Blood Culture - Preliminary, Resulted No growth Pending Labs Laboratory Tests 10/09/16 05:09: Glucometer 88 Discharge Home Medications: Active Scripts Active Zofran Odt (Ondansetron) 8 Mg Tab.rapdis 8 Mg PO Q6H Sucralfate 1 Gm Tablet 1 Gm PO BID Famotidine 20 Mg Tablet 20 Mg PO BID Reported Acetaminophen 500 Mg Tablet 1,000 Mg PO BID Omeprazole 40 Mg Capsule. 40 Mg PO DAILY Lantus Solostar (Insulin Glargine,Hum.rec.anlog) 100 Unit/1 Ml Insuln.pen 30 Units SQ HS ONLY TAKES IF SHE HAS EATEN Humalog Kwikpen (Insulin Lispro) 100 Unit/1 Ml Insuln.pen 8 Units SQ BID@0800, 2000 ONLY TAKES IF SHE HAD EATEN Chantix (Varenicline Tartrate) 1 Each Tab.ds.pk 1 Tab PO DAILY Gabapentin 600 Mg Tablet 600 Mg PO TID Metoclopramide HCl 10 Mg Tablet 10 Mg PO QID Escitalopram Oxalate 20 Mg Tablet 20 Mg PO HS Oxycodone-Acetaminophen 10-325 (Oxycodone HCl/Acetaminophen) 1 Each Tablet 1 Tab PO TID Marinol (Dronabinol) 5 Mg Capsule 1 Cap PO BID TAKES BEFORE LUNCH AND SUPPER Cyclobenzaprine HCl 10 Mg Tablet 10 Mg PO TID Duloxetine HCl 30 Mg Capsule.dr 30 Mg PO HS Zolpidem Tartrate 10 Mg Tablet 10 Mg PO HS Polyethylene Glycol 3350 255 Gm Powder 17 Gm PO DAILY PRN Xarelto (Rivaroxaban) 20 Mg Tablet 20 Mg PO HS Metronidazole 500 Mg Tablet 500 Mg PO BID FILLED 09/30/16 #14 FOR A 7 DAY THERAPY Vitamin B-12 (Cyanocobalamin) 1,000 Mcg Tablet 1,000 Mcg PO DAILY Albuterol Sulfate Hfa (Albuterol Sulfate) 8.5 Gm Aer.w.adap 2 Puff INH QID PRN Humalog (Insulin Lispro) 100 Unit/1 Ml Insuln.pen 10 Unit SQ HS Multiple Vitamins With Iron (Multivitamins W-Iron) 1 Tab Tablet 1 Tab PO DAILY Instructions to patient/family Please see electonic discharge instructions given to patient. Clinical Quality Measures DVT/VTE Risk/Contraindication: Risk Factor Score Per Nursin RFS Level Per Nursing on Admit: 1=Low/No VTE PPX VIANEY CEJA DO October 09, 2016 10:12
[2016-10-09] MEDS ORDERED: FAMO20TA5 PO (10:23)
[2016-10-09] MEDS ORDERED: SUCR1TAB PO (10:23)
[2016-10-09] MEDS ORDERED: ONDA8TAB9 PO (10:23)
[2016-10-09] MEDS: FAMOTIDINE 20 MG (PEPCID) TABLET PO SCH (10:28)
[2016-10-09] MEDS: SUCRALFATE 1 GM (CARAFATE) TAB PO SCH (10:28)
[2016-10-09] MEDS: oxyCODONE/APAP 10/325MG (PERCOCET 10) TABLET PO SCH (10:28)
[2016-10-09] MEDS: PROMETHAZINE 25 MG (PHENERGAN) TAB PO PRN (10:29)
[2016-10-09] MEDS ORDERED: RT-ALBUTEROL SULF 2.5 MG/3 ML PRE-MIX VIAL IH PRN (10:30)
[2016-10-09 13:00] VITALS: BP 125/84
[2016-10-09] MEDS ORDERED: METOCLOPRAMIDE 10 MG (REGLAN) TAB PO SCH (13:00)
[2016-10-09] MEDS ORDERED: CYCLOBENZAPRINE 10 MG (FLEXERIL) TAB PO SCH (13:00)
[2016-10-09] MEDS ORDERED: GABAPENTIN 600 MG (NEURONTIN) TAB PO SCH (13:00)
[2016-10-09] MEDS ORDERED: inSUlin ASPART (NovoLOG) 1 UNIT/0.01 ML (CHARGE PER UNIT) SC SCH ×2 (20:00→21:00)
[2016-10-09] MEDS ORDERED: ACETAMINOPHEN 500 MG TAB (TYLENOL) PO SCH (21:00)
[2016-10-09] MEDS ORDERED: DRONABINOL 2.5 MG (MARINOL) CAP PO SCH (21:00)
[2016-10-09] MEDS ORDERED: metroNIDAZOLE 500 MG (FLAGYL) TAB PO SCH (21:00)
[2016-10-10] MEDS ORDERED: MULTIVIT W/MINERALS TAB (THERAGRAN M) PO SCH (07:00)
[2016-10-10] MEDS ORDERED: VARENICLINE TARTRATE PO SCH (09:00)
[2016-10-10] MEDS ORDERED: CYANOCOBALAMIN 500 MCG TAB (VITAMIN B-12) PO SCH (09:00)
== END 2016-10-09 13:00 | disposition home or self-care (01) | DRG 74 ==
LOC: EDUNIT# 07:33 → ER 07:34 → ICU 09:09 → 4TH 10-05 11:28
PROVIDERS: ADMIT Family Medicine; ATTEND Family Medicine
PROC: 0DB68ZX Excision of Stomach, Via Natural or Artificial Opening Endoscopic, Diagnostic (ICD-10-PCS; 2016-10-08)
PROC: 0DB78ZX Excision of Stomach, Pylorus, Via Natural or Artificial Opening Endoscopic, Diagnostic (ICD-10-PCS; principal; 2016-10-08 13:30)
DX: E10.43 Type 1 diabetes mellitus with diabetic autonomic (poly)neuropathy (principal); K31.84 Gastroparesis; E10.10 Type 1 diabetes mellitus with ketoacidosis without coma; K29.70 Gastritis, unspecified, without bleeding; K21.0 Gastro-esophageal reflux disease with esophagitis; K44.9 Diaphragmatic hernia without obstruction or gangrene; K58.9 Irritable bowel syndrome, unspecified; M79.7 Fibromyalgia; M54.16 Radiculopathy, lumbar region; J45.909 Unspecified asthma, uncomplicated; F32.9 Major depressive disorder, single episode, unspecified; F17.210 Nicotine dependence, cigarettes, uncomplicated; T40.4X5A Adverse effect of other synthetic narcotics, initial encounter; Z79.4 Long term (current) use of insulin; Z86.711 Personal history of pulmonary embolism; Z85.43 Personal history of malignant neoplasm of ovary; Z79.01 Long term (current) use of anticoagulants
CPT/HCPCS: 36415; 36569; 71010; 74176; 76705; 76937; 80048; 80053; 81000; 82805; 82962; 83036; 83605; 85025; 87040; 93005; 96365; 96375

== ENCOUNTER 2016-10-22 14:52 | Outpatient (RCR) | payer MEDICARE, MEDICAID ==
[~2016-10-22 14:52] MED LIST changes: +ACET-93 PO; +CIPR250T3 PO; +DRON5CAP PO; +ESCI20TA45 PO; +FAMO20TA5 PO; +GABA600T2 PO; +METO10TA3 PO; +METR500T21 PO; +ONDA8TAB9 PO; +POLY255P PO; +RIVA20TA PO; +SUCR1TAB PO; +VARE1TAB21 PO
[2016-10-22 15:02] LABS: BASOPHILS % (AUTO) 0 % (0-10); EOSINOPHILS # (AUTO) 0.2 10^3/uL (0.0-0.3); EOSINOPHILS % (AUTO) 2 % (0-10); LYMPHOCYTES # (AUTO) 3.6 X 10^3 (1.0-4.0); LYMPHOCYTES % (AUTO) 37 % (12-44); MEAN CORPUSCULAR HEMOGLOBIN 27 PG (25-34); MEAN CORPUSCULAR HGB CONC 32 G/DL (32-36); MEAN CORPUSCULAR VOLUME 85 FL (80-99); MEAN PLATELET VOLUME 10.4 FL (7.4-10.4); MONOCYTES # (AUTO) 0.7 X 10^3 (0.0-1.0); MONOCYTES % (AUTO) 7 % (0-12); NEUTROPHILS # (AUTO) 5.4 X 10^3 (1.8-7.8); NEUTROPHILS % (AUTO) 55 % (42-75); PLATELET COUNT 417 10^3/uL (130-400); RED BLOOD COUNT 4.78 10^6/uL (4.35-5.85); RED CELL DISTRIBUTION WIDTH 14.1 % (10.0-14.5); WHITE BLOOD COUNT 9.8 10^3/uL (4.3-11.0)
[2016-10-22 15:56] LABS: ALANINE AMINOTRANSFERASE 18 U/L (0-55); ALBUMIN 3.8 G/DL (3.2-4.5); ANION GAP 12 MMOL/L (5-14); ASPARTATE AMINO TRANSFERASE 25 U/L (5-34); BILIRUBIN,TOTAL 0.3 MG/DL (0.1-1.0); BLOOD UREA NITROGEN 5 MG/DL (7-18); BUN/CREATININE RATIO 7; CARBON DIOXIDE 22 MMOL/L (21-32); CHLORIDE 108 MMOL/L (98-107); CREATININE SERUM 0.76 MG/DL (0.60-1.30); GFR ESTIMATED > 60; GLUCOSE 79 MG/DL (70-105); POTASSIUM 3.7 MMOL/L (3.6-5.0); SODIUM 142 MMOL/L (135-145); TOTAL PROTEIN 7.7 G/DL (6.4-8.2)
[2017-01-20] MEDS ORDERED: ATOR40TA70 PO (16:30)
[2017-01-20] MEDS ORDERED: SUCR1TAB PO (16:30)
[2017-01-20] MEDS ORDERED: PREG300C PO (16:30)
[2017-01-20] MEDS ORDERED: ONDA8TAB13 SL (16:30)
== END 2017-01-20 | disposition home or self-care (01) ==
LOC: ONC 14:52
PROVIDERS: ATTEND Internal Medicine Hematology & Oncology
DX: I27.82 Chronic pulmonary embolism (principal); D64.9 Anemia, unspecified; E11.9 Type 2 diabetes mellitus without complications; F32.9 Major depressive disorder, single episode, unspecified; Z79.01 Long term (current) use of anticoagulants; Z79.899 Other long term (current) drug therapy; F17.210 Nicotine dependence, cigarettes, uncomplicated
CPT/HCPCS: 36415; 80053; 82728; 83540; 85025; 99213

== ENCOUNTER 2016-11-02 16:44 | Emergency (ER) | payer MEDICARE, MEDICAID ==
[2016-11-02 17:13] VITALS: BP 0/0
== END 2016-11-02 17:08 | disposition left against medical advice (07) ==
LOC: EDUNIT# 16:44 → ER 16:47
DX: R53.83 Other fatigue (principal); R11.0 Nausea; Z53.21 Procedure and treatment not carried out due to patient leaving prior to being seen by health care provider
CPT/HCPCS: 99281

== ENCOUNTER 2016-11-10 12:52 | Emergency (ER) | payer MEDICARE, MEDICAID ==
[~2016-11-10] VITALS: Ht 160 cm; Wt 44.5 kg
--- NOTE | 2016-11-10 13:12 | ED General ---
General Chief Complaint: Abdominal/GI Problems Stated Complaint: SHARP PAINS IN L SIDE Nursing Triage Note: L SIDED ABD PAIN X1 HOUR WHILE EATING Nursing Sepsis Screen: No Definite Risk Source of Information: Patient Exam Limitations: No Limitations History of Present Illness Time Seen by Provider: 13:10 Initial Comments To ER with Sharp upper left chest pain that began 1 hour ago while eating. Pain is worsened with movement and deep breathing. She is not short of breath. She does have a history of pulmonary emboli 2 years ago and remains on xarelto. He also reports some left abdominal pain and abdominal distention though this is not unusual for her as she takes Percocet for pain and is constipated. She has not had a bowel movement since 13 of this month but again states this is not unusual for her. Timing/Duration: 1-2 Days Severity: Moderate Associated Systoms: Chest Pain, No Cough, No Diaphoresis, No Fever/Chills, No Headaches, No Loss of Appetite, No Malaise, No Nausea/Vomiting Allergies and Home Medications Allergies Coded Allergies: aspirin (Verified Allergy, Unknown, 10/25/13) Uncoded Allergies: NSAIDS (Allergy, Unknown, 10/25/13) COUMADIN (Adverse Reaction, Unknown, 10/25/13) VOMITS BLOOD Home Medications Acetaminophen 500 Mg Tablet, 1,000 MG PO BID, (Reported) Albuterol Sulfate 8.5 Gm Aer.w.adap, 2 PUFF INH QID PRN for SHORTNESS OF BREATH, (Reported) Cyanocobalamin 1,000 Mcg Tablet, 1,000 MCG PO DAILY, (Reported) Cyclobenzaprine HCl 10 Mg Tablet, 10 MG PO TID, (Reported) Dronabinol 5 Mg Capsule, 1 CAP PO BID, (Reported) TAKES BEFORE LUNCH AND SUPPER Duloxetine HCl 30 Mg Capsule.dr, 30 MG PO HS, (Reported) Escitalopram Oxalate 20 Mg Tablet, 20 MG PO HS, (Reported) Famotidine 20 Mg Tablet, 20 MG PO BID, #60 Prescribed by: VIANEY CEJA on 10/09/16 1023 Gabapentin 600 Mg Tablet, 600 MG PO TID, (Reported) Insulin Glargine,Hum.rec.anlog 100 Unit/1 Ml Insuln.pen, 30 UNITS SQ HS, ( Reported) ONLY TAKES IF SHE HAS EATEN Insulin Lispro 100 Unit/1 Ml Insuln.pen, 10 UNIT SQ HS, (Reported) Insulin Lispro 100 Unit/1 Ml Insuln.pen, 8 UNITS SQ BID@0800,1999, (Reported) ONLY TAKES IF SHE HAD EATEN Metoclopramide HCl 10 Mg Tablet, 10 MG PO QID, (Reported) Metronidazole 500 Mg Tablet, 500 MG PO BID, (Reported) FILLED 09/30/16 #14 FOR A 7 DAY THERAPY Multivitamins W-Iron 1 Tab Tablet, 1 TAB PO DAILY, (Reported) Omeprazole 40 Mg Capsule.dr, 40 MG PO DAILY, (Reported) Ondansetron 8 Mg Tab.rapdis, 8 MG PO Q6H, #30 Prescribed by: VIANEY CEJA on 10/09/16 1023 Oxycodone HCl/Acetaminophen 1 Each Tablet, 1 TAB PO TID, (Reported) Polyethylene Glycol 3350 255 Gm Powder, 17 GM PO DAILY PRN for CONSTIPATION-2ND LINE, (Reported) Rivaroxaban 20 Mg Tablet, 20 MG PO HS, (Reported) Sucralfate 1 Gm Tablet, 1 GM PO BID, #60 Prescribed by: VIANEY CEJA on 10/09/16 1023 Varenicline Tartrate 1 Each Tab.ds.pk, 1 TAB PO DAILY, (Reported) Zolpidem Tartrate 10 Mg Tablet, 10 MG PO HS, (Reported) Constitutional: see HPI, No chills, No fever EENTM: see HPI Respiratory: see HPI, No hemoptysis, No orthopnea, No short of breath Cardiovascular: no symptoms reported Genitourinary: no symptoms reported Musculoskeletal: no symptoms reported Skin: no symptoms reported Psychiatric/Neurological: No Symptoms Reported Past Czeartd-Hteuls-Jtpbjp Hx Patient Social History Alcohol Use: Denies Use Recreational Drug Use: No Smoking Status: Current Everyday Smoker Type Used: Cigarettes Recent Foreign Travel: No Contact w/Someone Who Travel: No Recent Infectious Disease Expo: No Recent Hopitalizations: No Immunizations Up To Date Tetanus Booster (TDap): Less than 5yrs Date of Pneumonia Vaccine: Jul 07, 2014 Date of Influenza Vaccine: Feb 23, 2015 Seasonal Allergies Seasonal Allergies: No Surgeries HX Surgeries: Yes (HERNIA, thoracentesis) Surgeries: Abdominal, Appendectomy, Hysterectomy Respiratory Hx Respiratory Disorders: Yes (HX PULMONARY EMBOLI) Respiratory Disorders: Asthma, Pulmonary Embolism Cardiovascular Hx Cardiac Disorders: No Neurological Hx Neurological Disorders: Yes (FIBROMYALGIA) Neurological Disorders: Neuropathy 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 System Hx 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 Disorders: No 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 Genitourinary Hx Genitourinary Disorders: No Gastrointestinal Hx Gastrointestinal Disorders: Yes (gastroparesis) Gastrointestinal Disorders: Gastroesophageal Reflux, Irritable Bowel Musculoskeletal Hx Musculoskeletal Disorders: Yes (lumbar radiculopathy) Musculoskeletal Disorders: Chronic Back Pain Endocrine Hx Endocrine Disorders: Yes Endocrine Disorders: Diabetes, Insulin dep HEENT HX ENT Disorders: No Cancer Hx Cancer: Yes Cancer: Ovarian Psychosocial Hx Psychiatric Problems: Yes Behavioral Health Disorders: Depression Integumentary HX Skin/Integumentary Disorder: No Blood Transfusions Hx Blood Disorders: Yes Adverse Reaction to a Blood Tr: No Family Medical History Significant Family History: No Pertinent Family Hx Family Medial History: Cardiovascular disease 19 MOTHER (CHF) G8 SISTER (CHF) Cataracts 19 MOTHER Diabetes mellitus 19 MOTHER G8 BROTHER G8 BROTHER G8 SISTER Hypertension 19 MOTHER G8 SISTER Physical Exam Vital Signs Vital Sign - Last 12Hours 11/10/16 12:57 Temp 97.5 Pulse 96 Resp 18 B/P (MAP) 117/84 Pulse Ox 98 Capillary Refill : Less Than 3 Seconds General Appearance: No Apparent Distress, Chronically ill, Thin Eyes: Bilateral Eye Normal Inspection, Bilateral Eye PERRL HEENT: PERRL/EOMI, TMs Normal Respiratory: Normal Breath Sounds, No Accessory Muscle Use, No Respiratory Distress Cardiovascular: Regular Rate, Rhythm, Normal Peripheral Pulses Gastrointestinal: Normal Bowel Sounds, Non Tender, Soft, Distended, No Tenderness Neurologic/Psychiatric: Alert, Oriented x3, No Motor/Sensory Deficits Skin: Normal Color, Warm/Dry Progress/Results/Core Measures Results/Orders Lab Results Laboratory Tests Test 11/10/16 13:08 11/10/16 13:22 Range/Units White Blood Count 10.1 4.3-11.0 10^3/uL Red Blood Count 4.38 4.35-5.85 10^6/uL Hemoglobin 11.9 11.5-16.0 G/DL Hematocrit 37 35-52 % Mean Corpuscular Volume 85 80-99 FL Mean Corpuscular Hemoglobin 27 25-34 PG Mean Corpuscular Hemoglobin Concent 32 32-36 G/DL Red Cell Distribution Width 14.2 10.0-14.5 % Platelet Count 438 H 130-400 10^3/uL Mean Platelet Volume 10.5 H 7.4-10.4 FL Neutrophils (%) (Auto) 61 42-75 % Lymphocytes (%) (Auto) 30 12-44 % Monocytes (%) (Auto) 5 0-12 % Eosinophils (%) (Auto) 4 0-10 % Basophils (%) (Auto) 0 0-10 % Neutrophils # (Auto) 6.2 1.8-7.8 X 10^3 Lymphocytes # (Auto) 3.1 1.0-4.0 X 10^3 Monocytes # (Auto) 0.5 0.0-1.0 X 10^3 Eosinophils # (Auto) 0.4 H 0.0-0.3 10^3/uL Basophils # (Auto) 0.0 0.0-0.1 10^3/uL Sodium Level 142 135-145 MMOL/L Potassium Level 4.5 3.6-5.0 MMOL/L Chloride Level 109 H 98-107 MMOL/L Carbon Dioxide Level 22 21-32 MMOL/L Anion Gap 11 5-14 MMOL/L Blood Urea Nitrogen 12 7-18 MG/DL Creatinine 0.79 0.60-1.30 MG/DL Estimat Glomerular Filtration Rate > 60 BUN/Creatinine Ratio 15 0-20 Glucose Level 242 H 70-105 MG/DL Calcium Level 9.1 8.5-10.1 MG/DL Total Bilirubin 0.2 0.1-1.0 MG/DL Aspartate Amino Transf (AST/SGOT) 21 5-34 U/L Alanine Aminotransferase (ALT/SGPT) 14 0-55 U/L Alkaline Phosphatase 106 40-136 U/L Troponin I < 0.30 <0.30 NG/ML Total Protein 6.5 6.4-8.2 GM/DL Albumin 3.2 3.2-4.5 GM/DL Urine Color YELLOW Urine Clarity CLEAR Urine pH 6 5-9 Urine Specific [place] 1.015 L 1.016-1.022 Urine Protein 3+ H NEGATIVE Urine Glucose (UA) NEGATIVE NEGATIVE Urine Ketones NEGATIVE NEGATIVE Urine Nitrite NEGATIVE NEGATIVE Urine Bilirubin NEGATIVE NEGATIVE Urine Urobilinogen NORMAL NORMAL MG/DL Urine Leukocyte Esterase 1+ H NEGATIVE Urine RBC (Auto) NEGATIVE NEGATIVE Urine RBC NONE /HPF Urine WBC RARE /HPF Urine Squamous Epithelial Cells 5-10 /HPF Urine Crystals NONE /LPF Urine Bacteria NEGATIVE /HPF Urine Casts NONE /LPF Urine Mucus NEGATIVE /LPF Urine Culture Indicated NO My Orders Orders - REGINA DELONG APRN Cbc With Automated Diff (11/10/16 12:57) Comprehensive Metabolic Panel (11/10/16 12:57) Ua Culture If Indicated (11/10/16 12:57) Chest Pa/Lat (2 View) (11/10/16 13:09) Troponin I (11/10/16 13:09) Ekg Tracing (11/10/16 13:09) Drug Screen Stat (Urine) (11/10/16 13:12) Abdomen, Flat & Upright/Decub (11/10/16 13:12) Methylnaltrexone Injection (Relistor Inj (11/10/16 13:45) Fentanyl Injection (Sublimaze Injection (11/10/16 13:45) Vital Signs/I&O Vital Sign - Last 12Hours 11/10/16 12:57 Temp 97.5 Pulse 96 Resp 18 B/P (MAP) 117/84 Pulse Ox 98 Blood Pressure Mean: 95 Diagnostic Imaging Diagonstic Imaging: Xray Comments [facility] REC#: [id number] PT STATUS: REG ER : 1970 PHYSICIAN: REGINA DELONG APRN ADMIT DATE: 11/10/16/ER Draft Date of Exam:11/10/16 CHEST PA/LAT (2 VIEW) INDICATION: Left-sided chest pain. COMPARISON: 10/04/2016. FINDINGS: Frontal and lateral views of the chest demonstrate clear lungs bilaterally. The heart is normal. No pneumothorax. The osseous structures age appropriate. IMPRESSION: Negative chest. Dictated on workstation # [id number] Dict: 11/10/16 1333 Trans: 11/10/16 1334 [id number] Interpreted by: ANKUSH GOMEZ Electronically signed by: [facility] REC#: [id number] PT STATUS: REG ER : 1970 PHYSICIAN: REGINA DELONG APRN ADMIT DATE: 11/10/16/ER Draft Date of Exam:11/10/16 ABDOMEN, FLAT & UPRIGHT/DECUB INDICATION: Generalized abdominal pain, left-sided abdominal and upper quadrant pain. COMPARISON: None. KUB and upright views of the abdomen demonstrate moderate constipation without obstruction or ileus. There is no free air. No abnormal calcifications. IMPRESSION: Constipation without obstruction. Dictated on workstation # [id number] Dict: 11/10/16 1334 Trans: 11/10/16 1336 [id number] Interpreted by: ANKUSH GOMEZ Electronically signed by: Departure Impression Impression: Primary Impression: Pleuritic chest pain Additional Impression: Constipation Disposition: 01 HOME, SELF-CARE Condition: Stable Departure-Patient Inst. Decision time for Depature: 13:45 Referrals: HORACE HIGGINS MD (PCP/Family) Primary Care Physician Patient Instructions: Constipation, Adult (DC), Pleuritic Chest Pain Add. Discharge Instructions: 1. Follow-up with your regular doctor this week 2. Return to ER for any concerns 3. Continue your Xarelto and your miralax (laxative) All discharge instructions reviewed with patient and/or family. Voiced understanding. REGINA DELONG RAIL TRANSPORTATION TABELER Nov 10, 2016 13:12
[2016-11-10 13:15] LABS: BASOPHILS % (AUTO) 0 % (0-10); EOSINOPHILS # (AUTO) 0.4 10^3/uL (0.0-0.3); EOSINOPHILS % (AUTO) 4 % (0-10); LYMPHOCYTES # (AUTO) 3.1 X 10^3 (1.0-4.0); LYMPHOCYTES % (AUTO) 30 % (12-44); MEAN CORPUSCULAR HEMOGLOBIN 27 PG (25-34); MEAN CORPUSCULAR HGB CONC 32 G/DL (32-36); MEAN CORPUSCULAR VOLUME 85 FL (80-99); MEAN PLATELET VOLUME 10.5 FL (7.4-10.4); MONOCYTES # (AUTO) 0.5 X 10^3 (0.0-1.0); MONOCYTES % (AUTO) 5 % (0-12); NEUTROPHILS # (AUTO) 6.2 X 10^3 (1.8-7.8); NEUTROPHILS % (AUTO) 61 % (42-75); PLATELET COUNT 438 10^3/uL (130-400); RED BLOOD COUNT 4.38 10^6/uL (4.35-5.85); RED CELL DISTRIBUTION WIDTH 14.2 % (10.0-14.5); WHITE BLOOD COUNT 10.1 10^3/uL (4.3-11.0)
[2016-11-10 13:30] LABS: BILIRUBIN,URINE NEGATIVE (NEGATIVE); KETONES,URINE NEGATIVE (NEGATIVE); LEUKOCYTE ESTERASE ,URINE 1+ (NEGATIVE); NITRITE,URINE NEGATIVE (NEGATIVE); PH,URINE 6 (5-9); PROTEIN,URINE 3+ (NEGATIVE); UROBILINOGEN,URINE NORMAL (NORMAL)
[2016-11-10 13:34] LABS: ALANINE AMINOTRANSFERASE 14 U/L (0-55); ALBUMIN 3.2 GM/DL (3.2-4.5); ANION GAP 11 MMOL/L (5-14); ASPARTATE AMINO TRANSFERASE 21 U/L (5-34); BILIRUBIN,TOTAL 0.2 MG/DL (0.1-1.0); BLOOD UREA NITROGEN 12 MG/DL (7-18); BUN/CREATININE RATIO 15 (0-20); CALCIUM 9.1 MG/DL (8.5-10.1); CARBON DIOXIDE 22 MMOL/L (21-32); CHLORIDE 109 MMOL/L (98-107); CREATININE SERUM 0.79 MG/DL (0.60-1.30); GFR ESTIMATED > 60; GLUCOSE 242 MG/DL (70-105); HEMOLYSIS 4 (-100-29); ICTERUS 0.3 (-100-1.9); LIPEMIA 11 (-100-49); POTASSIUM 4.5 MMOL/L (3.6-5.0); SODIUM 142 MMOL/L (135-145); TOTAL PROTEIN 6.5 GM/DL (6.4-8.2)
--- NOTE | 2016-11-10 13:35 | Diagnostic Imaging Report ---
INDICATION: Left-sided chest pain. COMPARISON: 10/04/2016. FINDINGS: Frontal and lateral views of the chest demonstrate clear lungs bilaterally. The heart is normal. No pneumothorax. The osseous structures age appropriate. IMPRESSION: Negative chest. Dictated by: Dictated on workstation # [id number]
--- NOTE | 2016-11-10 13:36 | Diagnostic Imaging Report ---
INDICATION: Generalized abdominal pain, left-sided abdominal and upper quadrant pain. COMPARISON: None. KUB and upright views of the abdomen demonstrate moderate constipation without obstruction or ileus. There is no free air. No abnormal calcifications. IMPRESSION: Constipation without obstruction. Dictated by: Dictated on workstation # [id number]
[2016-11-10 13:40] LABS: TROPONIN I < 0.30 NG/ML (<0.30)
[2016-11-10 13:43] LABS: WBC,URINE RARE /HPF
[2016-11-10] MEDS ORDERED: fentaNYL INJECTION 100 MCG/2 ML AMP IVP PRN (13:45)
[2016-11-10] MEDS ORDERED: METHYLNALTREXONE 12 MG/0.6 ML (RELISTOR) VIAL SQ ONE (13:45)
[2016-11-10 13:55] VITALS: BP 118/78
== END 2016-11-10 13:58 | disposition home or self-care (01) ==
LOC: EDUNIT# 12:52 → ER 12:54
DX: R07.89 Other chest pain (principal); K59.00 Constipation, unspecified; E11.40 Type 2 diabetes mellitus with diabetic neuropathy, unspecified; J45.909 Unspecified asthma, uncomplicated; F17.210 Nicotine dependence, cigarettes, uncomplicated; Z86.711 Personal history of pulmonary embolism; Z79.01 Long term (current) use of anticoagulants; Z79.4 Long term (current) use of insulin
CPT/HCPCS: 36415; 71020; 74020; 80053; 80306; 81000; 84484; 85025; 93005

== ENCOUNTER 2017-01-20 09:32 | Inpatient (IN) | payer MEDICARE, MEDICAID ==
[~2017-01-20] VITALS: Ht 158.8 cm; Wt 42.2 kg
[2017-01-20] VITALS (8 sets, daily range): BP systolic 89–117; BP diastolic 55–81
[2017-01-20] MEDS ORDERED: NS IV 1000 ML 1,000 ML IV SCH ×2 (10:45→13:15)
[2017-01-20] MEDS ORDERED: oxyCODONE/APAP 10/325MG (PERCOCET 10) TABLET PO ONE (10:45)
[2017-01-20] MEDS ORDERED: PROMETHAZINE INJ 25 MG/ML (PHENERGAN) AMP IVP ONE (10:45)
--- NOTE | 2017-01-20 10:45 | ED GI ---
General Chief Complaint: Abdominal/GI Problems Stated Complaint: THROWING UP/DEYHDRATION Nursing Triage Note: c/o back pain/diarrhea. Onset Sat. Sepsis Screen: No Definite Risk Source of Information: Patient Exam Limitations: No Limitations History of Present Illness Time Seen By Provider: 10:43 Initial Comments To ER with reports of back pain, diarrhea without blood or mucus, nausea, vomiting, diffuse abdominal pain. This began 2 days ago. Her last Marinol/ oxycodone was 3 days ago. Severity/Quality: Moderate Location: Generalized Abdomen Radiation: No Radiation Associated Symptoms: Back Pain, Nausea/Vomiting Allergies and Home Medications Allergies Coded Allergies: aspirin (Verified Allergy, Unknown, 10/25/13) Uncoded Allergies: NSAIDS (Allergy, Unknown, 10/25/13) COUMADIN (Adverse Reaction, Unknown, 10/25/13) VOMITS BLOOD Home Medications Acetaminophen 500 Mg Tablet, 1,000 MG PO BID, (Reported) Albuterol Sulfate 8.5 Gm Aer.w.adap, 2 PUFF INH QID PRN for SHORTNESS OF BREATH, (Reported) Cyanocobalamin 1,000 Mcg Tablet, 1,000 MCG PO DAILY, (Reported) Cyclobenzaprine HCl 10 Mg Tablet, 10 MG PO TID, (Reported) Dronabinol 5 Mg Capsule, 1 CAP PO BID, (Reported) TAKES BEFORE LUNCH AND SUPPER Duloxetine HCl 30 Mg Capsule.dr, 30 MG PO HS, (Reported) Escitalopram Oxalate 20 Mg Tablet, 20 MG PO HS, (Reported) Famotidine 20 Mg Tablet, 20 MG PO BID, #60 Prescribed by: VIANEY CEJA on 10/09/16 1023 Gabapentin 600 Mg Tablet, 600 MG PO TID, (Reported) Insulin Glargine,Hum.rec.anlog 100 Unit/1 Ml Insuln.pen, 30 UNITS SQ HS, ( Reported) ONLY TAKES IF SHE HAS EATEN Insulin Lispro 100 Unit/1 Ml Insuln.pen, 10 UNIT SQ HS, (Reported) Insulin Lispro 100 Unit/1 Ml Insuln.pen, 8 UNITS SQ BID@0800,2000, (Reported) ONLY TAKES IF SHE HAD EATEN Metoclopramide HCl 10 Mg Tablet, 10 MG PO QID, (Reported) Metronidazole 500 Mg Tablet, 500 MG PO BID, (Reported) FILLED 09/30/16 #14 FOR A 7 DAY THERAPY Multivitamins W-Iron 1 Tab Tablet, 1 TAB PO DAILY, (Reported) Omeprazole 40 Mg Capsule.dr, 40 MG PO DAILY, (Reported) Ondansetron 8 Mg Tab.rapdis, 8 MG PO Q6H, #30 Prescribed by: VIANEY CEJA on 10/09/16 1023 Oxycodone HCl/Acetaminophen 1 Each Tablet, 1 TAB PO TID, (Reported) Polyethylene Glycol 3350 255 Gm Powder, 17 GM PO DAILY PRN for CONSTIPATION-2ND LINE, (Reported) Rivaroxaban 20 Mg Tablet, 20 MG PO HS, (Reported) Sucralfate 1 Gm Tablet, 1 GM PO BID, #60 Prescribed by: VIANEY CEJA on 10/09/16 1023 Varenicline Tartrate 1 Each Tab.ds.pk, 1 TAB PO DAILY, (Reported) Zolpidem Tartrate 10 Mg Tablet, 10 MG PO HS, (Reported) Review of Systems Constitutional: see HPI EENTM: No Symptoms Reported Respiratory: No Symptoms Reported Cardiovascular: No Symptoms Reported Gastrointestinal: See HPI, Abdominal Pain, Diarrhea Genitourinary: No Symptoms Reported Musculoskeletal: no symptoms reported Skin: no symptoms reported Psychiatric/Neurological: No Symptoms Reported Endocrine: No Symptoms Reported Hematologic/Lymphatic: No Symptoms Reported Past Zumxsmh-Rpytlj-Rudmqk Hx Patient Social History Type Used: Cigarettes Recent Foreign Travel: No Contact w/Someone Who Travel: No Recent Infectious Disease Expo: No Recent Hopitalizations: No Immunizations Up To Date Tetanus Booster (TDap): Less than 5yrs Date of Pneumonia Vaccine: Jul 07, 2014 Date of Influenza Vaccine: Feb 23, 2015 Seasonal Allergies Seasonal Allergies: No Surgeries History of Surgeries: Yes (HERNIA, thoracentesis) Surgeries: Abdominal, Appendectomy, Hysterectomy Respiratory History of Respiratory Disorde: Yes (HX PULMONARY EMBOLI) Respiratory Disorders: Asthma, Pulmonary Embolism Cardiovascular History of Cardiac Disorders: No Neurological History of Neurological Disord: Yes (FIBROMYALGIA) Neurological Disorders: Neuropathy 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 System : No Hx 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 Disorders: 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 Genitourinary History of Genitourinary Disor: No Gastrointestinal History of Gastrointestinal Di: Yes (gastroparesis) Gastrointestinal Disorders: Gastroesophageal Reflux, Irritable Bowel Musculoskeletal History of Musculoskeletal Dis: Yes (lumbar radiculopathy) Musculoskeletal Disorders: Chronic Back Pain Endocrine History of Endocrine Disorders: Yes Endocrine Disorders: Diabetes, Insulin dep HEENT History of HEENT Disorders: No Cancer History of Cancer: Yes Cancer: Ovarian Did You Recieve Any Treatments: Yes Type of Tx Receive: Surgical Intervention Psychosocial History of Psychiatric Problem: Yes Behavioral Health Disorders: Depression Integumentary History of Skin or Integumenta: No Blood Transfusions History of Blood Disorders: Yes Adverse Reaction to a Blood Tr: No Family Medical History Significant Family History: No Pertinent Family Hx Family Medial History: Cardiovascular disease 19 MOTHER (CHF) G8 SISTER (CHF) Cataracts 19 MOTHER Diabetes mellitus 19 MOTHER G8 BROTHER G8 BROTHER G8 SISTER Hypertension 19 MOTHER G8 SISTER Physical Exam Vital Signs VS - Last 72 Hours, by Label 01/20/17 01/20/17 10:34 11:46 Temp 98.2 98.2 Pulse 120 Resp 18 B/P (MAP) 118/81 Pulse Ox 98 O2 Delivery Room Air Capillary Refill : Less Than 3 Seconds General Appearance: WD/WN, no apparent distress HEENT: PERRL/EOMI, normal ENT inspection Neck: non-tender, full range of motion Respiratory: no respiratory distress, no accessory muscle use Cardiovascular: regular rate, rhythm, no murmur Gastrointestinal: normal bowel sounds, soft, tenderness Extremities: normal range of motion, non-tender Neurologic/Psychiatric: alert, normal mood/affect, oriented x 3 Skin: normal color, warm/dry Progress/Results/Core Measures Results/Orders Lab Results Laboratory Tests Test 01/20/17 11:20 01/20/17 13:01 01/20/17 13:43 Range/Units White Blood Count 9.7 4.3-11.0 10^3/uL Red Blood Count 6.06 H 4.35-5.85 10^6/uL Hemoglobin 16.3 H 11.5-16.0 G/DL Hematocrit 50 35-52 % Mean Corpuscular Volume 82 80-99 FL Mean Corpuscular Hemoglobin 27 25-34 PG Mean Corpuscular Hemoglobin Concent 33 32-36 G/DL Red Cell Distribution Width 14.4 10.0-14.5 % Platelet Count 404 H 130-400 10^3/uL Mean Platelet Volume 11.4 H 7.4-10.4 FL Neutrophils (%) (Auto) 74 42-75 % Lymphocytes (%) (Auto) 21 12-44 % Monocytes (%) (Auto) 6 0-12 % Eosinophils (%) (Auto) 0 0-10 % Basophils (%) (Auto) 0 0-10 % Neutrophils # (Auto) 7.1 1.8-7.8 X 10^3 Lymphocytes # (Auto) 2.0 1.0-4.0 X 10^3 Monocytes # (Auto) 0.5 0.0-1.0 X 10^3 Eosinophils # (Auto) 0.0 0.0-0.3 10^3/uL Basophils # (Auto) 0.0 0.0-0.1 10^3/uL Sodium Level 141 142 135-145 MMOL/L Potassium Level 3.4 L 3.3 L 3.6-5.0 MMOL/L Chloride Level 98 106 98-107 MMOL/L Carbon Dioxide Level 11 L 8 *L 21-32 MMOL/L Anion Gap 32 H 28 H 5-14 MMOL/L Blood Urea Nitrogen 17 15 7-18 MG/DL Creatinine 1.28 1.07 0.60-1.30 MG/DL Estimat Glomerular Filtration Rate 55 > 60 BUN/Creatinine Ratio 13 14 Glucose Level 454 *H 311 H 70-105 MG/DL Calcium Level 11.4 H 10.2 H 8.5-10.1 MG/DL Total Bilirubin 0.5 0.1-1.0 MG/DL Aspartate Amino Transf (AST/SGOT) 15 5-34 U/L Alanine Aminotransferase (ALT/SGPT) 17 0-55 U/L Alkaline Phosphatase 180 H 40-136 U/L Total Protein 9.1 H 6.4-8.2 GM/DL Albumin 4.7 H 3.2-4.5 GM/DL Lipase 8 8-78 U/L Blood Gas Puncture Site RT RAD Blood Gas Patient Temperature 96.9 Arterial Blood pH 7.35 L 7.37-7.43 Arterial Blood Partial Pressure CO2 25 L 35-45 MMHG Arterial Blood Partial Pressure O2 115 H 79-93 MMHG Arterial Blood HCO3 14 *L 23-27 MMOL/L Arterial Blood Total CO2 14.4 L 21.0-31.0 MMOL/L Arterial Blood Oxygen Saturation 99 94-100 % Arterial Blood Base Excess -11.1 L -2.5-2.5 MMOL/L Ifeanyi Test YES-POS Blood Gas Ventilator Setting NO Blood Gas Inspired Oxygen ROOM AIR My Orders Orders - REGINA DELONG EMT Cbc With Automated Diff (01/20/17 10:41) Comprehensive Metabolic Panel (01/20/17 10:41) Lipase (01/20/17 10:41) Saline Lock/Iv-Start (01/20/17 10:41) Ua Culture If Indicated (01/20/17 10:41) Drug Screen Stat (Urine) (01/20/17 10:41) Ns Iv 1000 Ml (Sodium Chloride 0.9%) (01/20/17 10:45) Promethazine Injection (Phenergan Injec (01/20/17 10:45) Oxycodone/Acet 10/325mg Tablet (Percocet (01/20/17 10:45) Insulin (Regular) Human (Humulin R (Per (01/20/17 12:00) Potassium Chloride Powder (Klor Con 20 M (01/20/17 12:00) Basic Metabolic Panel (01/20/17 12:43) Ns Iv 1000 Ml (Sodium Chloride 0.9%) (01/20/17 13:15) Arterial Blood Gas (01/20/17 13:43) Medications Given in ED Current Medications Medications Dose Ordered Sig/Jenifer Route Start Time Stop Time Status Last Admin Dose Admin Insulin Human Regular 5 unit ONCE ONCE IV 01/20/17 12:00 01/20/17 12:01 DC 01/20/17 12:15 5 UNIT Oxycodone/ Acetaminophen 1 tab ONCE ONCE PO 01/20/17 10:45 01/20/17 10:46 DC 01/20/17 11:46 1 TAB Promethazine HCl 25 mg ONCE ONCE IVP 01/20/17 10:45 01/20/17 10:46 DC 01/20/17 11:24 25 MG Vital Signs/I&O Vital Sign - Last 12Hours 01/20/17 01/20/17 10:34 11:46 Temp 98.2 98.2 Pulse 120 Resp 18 B/P (MAP) 118/81 Pulse Ox 98 O2 Delivery Room Air Blood Pressure Mean: 93 Departure Communication (Admissions) Progress Notes 1223- patient is sitting up in bed drinking a glass of water. She states she is also able to drink the potassium chloride powder dissolved in water. She states her back pain, abdominal pain, nausea and vomiting are gone. Because her CO2 was low at 11 and repeat a basic metabolic at the two-hour chantale. Impression Impression: Primary Impression: Chronic low back pain Additional Impressions: Narcotic withdrawal DKA (diabetic ketoacidoses) Disposition: 01 HOME, SELF-CARE Condition: Stable Admissions Decision to Admit Reason: Admit from ER (General) Decision to Admit/Date: Jan 20, 2017 Time/Decision to Admit Time: 14:06 Departure-Patient Inst. Referrals: HORACE HIGGINS MD (PCP/Family) Primary Care Physician REGINA DELONG APRN Jan 20, 2017 10:45
[2017-01-20 11:41] LABS: BASOPHILS % (AUTO) 0 % (0-10); EOSINOPHILS % (AUTO) 0 % (0-10); LYMPHOCYTES % (AUTO) 21 % (12-44); MEAN CORPUSCULAR HEMOGLOBIN 27 PG (25-34); MEAN CORPUSCULAR HGB CONC 33 G/DL (32-36); MEAN CORPUSCULAR VOLUME 82 FL (80-99); MEAN PLATELET VOLUME 11.4 FL (7.4-10.4); MONOCYTES # (AUTO) 0.5 X 10^3 (0.0-1.0); MONOCYTES % (AUTO) 6 % (0-12); NEUTROPHILS # (AUTO) 7.1 X 10^3 (1.8-7.8); NEUTROPHILS % (AUTO) 74 % (42-75); PLATELET COUNT 404 10^3/uL (130-400); RED BLOOD COUNT 6.06 10^6/uL (4.35-5.85); RED CELL DISTRIBUTION WIDTH 14.4 % (10.0-14.5); WHITE BLOOD COUNT 9.7 10^3/uL (4.3-11.0)
[2017-01-20 11:51] LABS: ALBUMIN 4.7 GM/DL (3.2-4.5); BILIRUBIN,TOTAL 0.5 MG/DL (0.1-1.0); CALCIUM 11.4 MG/DL (8.5-10.1); CREATININE SERUM 1.28 MG/DL (0.60-1.30); POTASSIUM 3.4 MMOL/L (3.6-5.0); TOTAL PROTEIN 9.1 GM/DL (6.4-8.2)
[2017-01-20] MEDS ORDERED: KCL 20 MEQ POWDER FOR ORAL SOLUTION PO ONE (12:00)
[2017-01-20] MEDS ORDERED: inSUlin (REGULAR) HUMAN 1 UNIT/0.01 ML (CHARGE PER UNIT) IV ONE (12:00)
--- OUTSIDE RECORDS SUMMARY | 2017-01-20 13:02 | XMS REPORT | Encounter Summary ---
Author Author [facility] Organization [facility] Address Unknown Phone Unavailable Care Team Providers Care Hollow Tile Partition Erector Name Role Phone PCP Unavailable Encounter Details Date Type Department Care Team Description 11/21/2016 Hospital QV LAB Ree Boswell ARNP Abnormal weight loss Encounter [id number] [place] [address] [place] [address] [place] [address] [place], [place] [id number] Social History Tobacco Use Types Packs/Day Years Used Date Current Every Day Smoker Cigarettes Quit: 01/24/2009 Alcohol Use Drinks/Week oz/Week Comments No 0 Standard 0.0 drinks or equivalent Sex Assigned at Date Recorded Not on file as of this encounter Medications at Time of Discharge Medication Sig. Disp. Refills Start Date End Date atorvastatin (LIPITOR) 40 Take 40 mg by mouth mg tablet daily. CYANOCOBALAMIN (VITAMIN Take by mouth. B-12 PO) cyclobenzaprine Take 10 mg by mouth three (FLEXERIL) 10 mg tablet times daily as needed for Muscle Cramps. dronabinol (MARINOL) 5 mg Take 5 mg by mouth twice capsule daily. ERGOCALCIFEROL (VITAMIN D Take 1,000 Units by mouth PO) Daily. ERYTHROMYCIN BASE Use as directed. (ERYTHROMYCIN, BULK, MISC) escitalopram (LEXAPRO) 20 Take 1 Tab by mouth 30 Tab 0 10/02/2010 mg PO tablet daily. estradiol (ESTRACE) 1 mg Take 2 mg by mouth Daily. tablet linaclotide(+) (LINZESS) Take 1 Cap by mouth daily 16 Cap 0 2016 290 mcg capsule 30 minutes before breakfast. megestrol (MEGACE) 40 mg Take 40 mg by mouth tablet Daily. metoclopramide (REGLAN) Take 10 mg by mouth four 10 mg tablet times daily. Morphine 30 mg CSRP Take by mouth Every 12 Hours. morphine SR (AVINZA) 30 Take 30 mg by mouth mg capsule Daily. MULTIVITAMINS Take by mouth. (MULTIVITAMIN PO) omeprazole DR(+) Take 40 mg by mouth daily (PRILOSEC) 40 mg capsule before breakfast. other medication 1 Dose. humalog lantis 30 untis @@ night oxycodone/acetaminophen Take 1 Tab by mouth Every 30 0 05/13/2009 (PERCOCET) 5/325 mg 4 Hours as needed for tablet Pain. polyethylene glycol 3350 Take 17 g by mouth daily. 527 g 2 09/24/2016 (MIRALAX) 17 gram/dose powder pregabalin (LYRICA) 300 Take 300 mg by mouth mg capsule twice daily. rivaroxaban (XARELTO) 20 Take 20 mg by mouth mg tablet daily. Take with food. spacer inhalation device by SEE ADMIN INSTRUCTIONS (AEROCHAMBER) route as directed. spcrIndications: PRN Indications: PRN topiramate (TOPAMAX) 100 Take 1 Tab by mouth Twice 60 2 03/17/2009 mg tablet Daily. ZOLPIDEM TARTRATE (AMBIEN Take by mouth. PO) metroNIDAZOLE (FLAGYL) Take 1 Tab by mouth three 30 Tab 0 11/21/2016 12/01/2016 250 mg tablet times daily for 10 days. Take with food. Do not drink alcohol while on metronidazole. as of this encounter Plan of Treatment Not on fileas of this encounter Visit Diagnoses Diagnosis Weight loss Loss of weight Nausea and vomiting, intractability of vomiting not specified, unspecified vomiting type Elevated LFTs Other abnormal blood chemistry in this encounter Admitting Diagnoses Diagnosis Abnormal weight loss Abnormal weight loss Loss of weight in this encounter
--- OUTSIDE RECORDS SUMMARY | 2017-01-20 13:02 | XMS REPORT | Encounter Summary ---
Author Author [facility] Organization [facility] Address Unknown Phone Unavailable Care Team Providers Care Head Of Strategy Name Role Phone PCP Unavailable Reason for Visit * Reason Comments Other Encounter Details Date Type Department Care Team Description 12/13/2016 Telephone [facility] Ree Boswell ARNP Other Physicians - Internal [address] [facility] Medicine [place] [address] [place] [place] [address] OFFICE BLDG [phone] [address] [address] Social History Tobacco Use Types Packs/Day Years Used Date Current Every Day Smoker Cigarettes Quit: 01/24/2009 Alcohol Use Drinks/Week oz/Week Comments No 0 Standard 0.0 drinks or equivalent Sex Assigned at Date Recorded Not on file as of this encounter Plan of Treatment Not on fileas of this encounter Visit Diagnoses Not on filein this encounter
--- OUTSIDE RECORDS SUMMARY | 2017-01-20 13:02 | XMS REPORT | Encounter Summary ---
Author Author [facility] Organization [facility] Address Unknown Phone Unavailable Care Team Providers Care Parcel Post Weigher Name Role Phone PCP Unavailable Encounter Details Date Type Department Care Team Description 12/23/2016 Orders Only [facility] Ree Boswell ARNP Weight loss;Nausea and Physicians - Internal [address] vomiting, intractability Medicine [place] [address] of vomiting not [address] [place] [address] specified, unspecified OFFICE BLDG [phone] vomiting type;Elevated [address] [place] [address] Social History Tobacco Use Types Packs/Day Years Used Date Current Every Day Smoker Cigarettes Quit: 01/24/2009 Alcohol Use Drinks/Week oz/Week Comments No 0 Standard 0.0 drinks or equivalent Sex Assigned at Date Recorded Not on file as of this encounter Plan of Treatment Not on fileas of this encounter Results * CORTISOL-AM (12/16/2016) Component Value Ref Range Cortisol-AM 22.7 Specimen Performing Laboratory Blood OTHER OUTSIDE LAB in this encounter Visit Diagnoses Diagnosis Weight loss Loss of weight Nausea and vomiting, intractability of vomiting not specified, unspecified vomiting type Elevated LFTs Other abnormal blood chemistry in this encounter
--- OUTSIDE RECORDS SUMMARY | 2017-01-20 13:02 | XMS REPORT | Clinical Summary ---
Author Author [facility] Organization [facility] Address Unknown Phone Unavailable Care Team Providers Care Sponge Packer Name Role Phone PCP Unavailable Source Comments Some departments are not documenting in the electronic medical record. If you do not see the information that you expected, contact Release of Information in the Health Information Management department at [phone] for further assistance in locating additional records.[facility] Allergies Active Allergy Reactions Severity Noted Date Comments Aspirin SWELLING High 05/24/2007 Warfarin RASH, VOMITING, ITCHING High 05/24/2007 Ibuprofen SWELLING High 05/24/2007 Ketorolac Tromethamine SWELLING Medium 05/24/2007 Patient reports she tolerates with Benadryl. Ciprofloxacin VOMITING Low 11/24/2016 Current Medications Prescription Sig. Disp. Refills Start End Date Status Date topiramate (TOPAMAX) 100 Take 1 Tab by mouth Twice 60 2 03/17/20 Active mg tablet Daily. 09 oxycodone/acetaminophen Take 1 Tab by mouth Every 30 0 05/13/20 Active (PERCOCET) 5/325 mg 4 Hours as needed for 09 tablet Pain. ZOLPIDEM TARTRATE (AMBIEN Take by mouth. Active [...] 10/03/19 Active mg PO tablet daily. 11 pregabalin (LYRICA) 300 Take 300 mg by mouth Active mg capsule twice daily. cyclobenzaprine Take 10 mg by mouth three Active (FLEXERIL) 10 mg tablet times daily as needed for Muscle Cramps. metoclopramide (REGLAN) Take 10 mg by mouth four Active 10 mg tablet times daily. atorvastatin (LIPITOR) 40 Take 40 mg by mouth Active mg tablet daily. rivaroxaban (XARELTO) 20 Take 20 mg by mouth Active mg tablet daily. Take with food. omeprazole DR(+) Take 40 mg by mouth daily Active (PRILOSEC) 40 mg capsule before breakfast. dronabinol (MARINOL) 5 mg Take 5 mg by mouth twice Active capsule daily. spacer inhalation device by SEE ADMIN INSTRUCTIONS Active (AEROCHAMBER) route as directed. spcrIndications: PRN Indications: PRN other medication 1 Dose. humalog lantis 30 Active untis @@ night polyethylene glycol 3350 Take 17 g by mouth daily. 527 g 2 09/25/19 Active (MIRALAX) 17 gram/dose 17 powder linaclotide(+) (LINZESS) Take 1 Cap by mouth daily 16 Cap 0 11/22/19 Active 290 mcg capsule 30 minutes before 17 breakfast. Active Problems Problem Noted Date Superior mesenteric artery syndrome (HCC) 03/17/2009 Anemia 03/17/2009 Vitamin D deficiency 03/17/2009 Malnutrition (HCC) 03/17/2009 Weight loss, unintentional 03/06/2009 Abdominal pain 09/17/2008 Migraine 09/17/2008 Depression 09/17/2008 Anxiety 09/17/2008 Suicide attempt (HCC) 09/17/2008 Asthma 09/17/2008 Chronic pain 09/17/2008 Encounters Date Type Specialty Care Team Description 12/23/2016 Orders Only Gastroenterology Ree Boswell ARNP Weight loss; Nausea and vomiting, intractability of vomiting not specified, unspecified vomiting type;Elevated LFTs 12/13/2016 Telephone Gastroenterology Ree Boswell ARNP Other 11/21/2016 Hospital Lab Ree Boswell ARNP Abnormal weight loss Encounter 11/21/2016 Office Visit Gastroenterology Ree Boswell ARNP Weight loss (Primary Dx);Nausea and vomiting, intractability of vomiting not specified, unspecified vomiting type;Elevated LFTs;Bloating from Last 3 Months Immunizations Name Dates Previously Given Next Due FLU VACCINE >3YO 03/04/2009 (Preservative Free) Family History Relation Name Status Comments Mother Social History Tobacco Use Types Packs/Day Years Used Date Current Every Day Smoker Cigarettes Quit: 01/24/2009 Alcohol Use Drinks/Week oz/Week Comments No 0 Standard 0.0 drinks or equivalent Sex Assigned at Date Recorded Not on file Last Filed Vital Signs Vital Sign Reading Time Taken Blood Pressure 127/54 11/21/2016 1:01 PM CDT Pulse 109 11/21/2016 1:01 PM CDT Temperature 36.8 C (98.3 F) 11/21/2016 1:01 PM CDT Respiratory Rate 16 11/21/2016 1:01 PM CDT Oxygen Saturation 100% 09/24/2016 2:14 PM CDT Inhaled Oxygen - - Concentration Weight 43.4 kg (95 lb 9.6 oz) 11/21/2016 1:01 PM CDT Height 158.8 cm (5' 2.52") 11/21/2016 1:01 PM CDT Body Mass Index 17.2 11/21/2016 1:01 PM CDT Plan of Treatment Health Maintenance Due Date Last Done Comments PHYSICAL (COMPREHENSIVE) 1978 EXAM PERTUSSIS VACCINE 1982 TETANUS VACCINE 1988 CERVICAL CANCER SCREENING 2001 BREAST CANCER SCREENING 2011 INFLUENZA VACCINE 01/24/2017 03/04/2009 Results * CORTISOL-AM (12/16/2016) Component Value Ref Range Cortisol-AM 22.7 Specimen Performing Laboratory Blood OTHER OUTSIDE LAB from Last 3 Months
--- OUTSIDE RECORDS SUMMARY | 2017-01-20 13:02 | XMS REPORT | Encounter Summary ---
Author Author [facility] Organization [facility] Address Unknown Phone Unavailable Care Team Providers Care Gis Technician Name Role Phone PCP Unavailable Reason for Visit * Reason Comments Gastroparesis Encounter Details Date Type Department Care Team Description 11/21/2016 Office Visit [facility] Ree Boswell ARNP Weight loss ([facility] - Internal [address] [place]x);Nausea and vomiting, Medicine [place] [address] [place] [address] [place] [address] vomiting not specified, [place], [place] [phone] unspecified vomiting [phone] type;Elevated [phone] LFTs;Bloating Social History Tobacco Use Types Packs/Day Years Used Date Current Every Day Smoker Cigarettes Quit: 01/24/2009 Alcohol Use Drinks/Week oz/Week Comments No 0 Standard 0.0 drinks or equivalent Sex Assigned at Date Recorded Not on file as of this encounter Last Filed Vital Signs Vital Sign Reading Time Taken Blood Pressure 127/54 11/21/2016 1:01 PM CDT Pulse 109 11/21/2016 1:01 PM CDT Temperature 36.8 C (98.3 F) 11/21/2016 1:01 PM CDT Respiratory Rate 16 11/21/2016 1:01 PM CDT Oxygen Saturation - - Inhaled Oxygen - - Concentration Weight 43.4 kg (95 lb 9.6 oz) 11/21/2016 1:01 PM CDT Height 158.8 cm (5' 2.52") 11/21/2016 1:01 PM CDT Body Mass Index 17.2 11/21/2016 1:01 PM CDT in this encounter Instructions * Patient Instructions - Ree Boswell ARNP - 11/21/2016 1:39 PM CDT 1. Stop Amitiza and Linzess 145 mcg dose. START samples of Linzess 290 mcg, take 1 tablet daily in the morning on an empty stomach, 1 hour before breakfast. You can continue to take Miralax as needed. Please call my nurse with a progress report in 2 weeks. If this dose of Linzess is helpful we can send in a prescription and see if we can get it covered. 2. Continue omeprazole once a day, take 30 minutes before breakfast. Continue Reglan 5 mg four times a day, take 30 minutes before meals and at bedtime. Make sure you are following a gastroparesis diet closely. Monitor your weight. Continue Ensure 1-2 cans daily. 3. Have blood work drawn fasting, before 9am. Please call my nurse if you have not heard from us about the lab results. 4. For the bloating try 10 days of additional metronidazole (Flagyl). Take 1 tablet three times a day for 10 days. Please call my nurse with a progress report once you have done this regimen to report if it was helpful. 5. Plan a follow up office visit in 3 months, call as needed in the meantime. Please call my nurse Ellen if you have any questions or concerns. [phone]. in this encounter Progress Notes * Ellen Jovel LPN - 11/21/2016 2:35 PM CDT Lab was unable to draw adequate blood sample for lab completion here at . Pt stated she usually has labs drawn locally in [place], [place] where they are able to draw labs from her neck. Reordered lab work as previous orders had been released by lab already. Pt to have completed at home and call our office once completed to ensure we receive results. * Ree Boswell ARNP - 11/21/2016 1:04 PM CDT Formatting of this note may be different from the original. Date of Service: 11/21/2016 Subjective: Sunitha Feldman is a 46 y.o. female. History of Present Illness Pleasant 46-year-old female who is an established patient of Dr. Olivo with multiple medical comorbidities including mood disorder nonspecified, suboptimally controlled diabetes complicated by neuropathy, metabolic syndrome, along with the following issues: 1. GERD. Symptoms currently well controlled with omeprazole 40 mg qd. Most recent EGD from February 2010. Negative H. pylori as well as sprue on biopsies. 2. Dyspepsia with history of gastroparesis-likely combination of diabetic autonomic neuropathy as well as ongoing narcotic usage. Has been on Reglan 10 mg tid, changed to 5 mg qid ac/hs after 09/24/[address] Olivo. 3. Altered bowel habits mainly manifest as constipation. Amitiza 8 mcg bid somewhat helpful only. Feels that Linzess 145 mcg qd has been more helpful but having coverage issues with this in the past by insurance. Outside CT abdomen and pelvis with contrast from 05/2016 showing large amount of retained stool in the colon 4. Abnormal LFTs-slight elevation in alkaline phosphatase as well as ALT. No recent lab work available for review today. 5. Chronic low abdominal pain. Last colonoscopy in 2008 with random colon biopsies negative for microscopic colitis. 6. History of SMA syndrome. No issues with weight loss at this time. Prior history of J-tube for nutritional support back in 2008. 7. On chronic rivaroxaban. 8. DM type 2 since 2002, insulin dependent at this time. 9. History of neuropathy and fibromyalgia, on Lyrica and Percocet. Encouraged to decrease use of Percocet by Dr. Olivo at 09/2016 OV. 10. She notes a prior history of B12 deficiency and remains on maintenance therapy. Outside hospital records rev'd by Dr. Olivo: - CT abdomen and pelvis with contrast from 05/2016 showed mild diastases of recti and slight laxity of the anterior abdominal wall above the umbilicus. No evidence of hernia recurrence noted. No bowel pathology is reported. No prominent amount of fecal material in the colon and rectum related to constipation. - Note elevated alkaline phosphatase at 156 and ALT 38 AST at 38 still within the normal range for the lab - Discharge summaries from 08/2008 as well as 02/2009 most recently. It appears that she had been admitted for abdominal pain CT abdomen and pelvis at that time showed dilation of the stomach and duodenum consistent with SMA syndrome. Small bowel follow-through was unremarkable. Gastric emptying study showed delayed gastric emptying. EGD showed retained food again suggestive of gastroparesis. - EGD and colonoscopy again from September 2008 which were unremarkable. Colonoscopy with biopsies did not show any evidence of microscopic colitis. Most recent EGD was from 2009. - patient underwent placement of a feeding J-tube in February 2009 for weight loss and failure to thrive and this was subsequently removed Sunitha is here today for a follow-up office visit. After her visit with Dr. Olivo she was prescribed Xifaxan for empiric treatment for small intestinal bacterial overgrowth. This was not covered by her insurance so she was prescribed Cipro 250 mg twice daily along with Flagyl 500 mg twice daily for 7 days. She states she could only tolerate 2 days of the Cipro as she felt it was causing her to have increased vomiting. She was able to tolerate and finish the full seven-day course of Flagyl and felt that it did improve her nausea, vomiting, and bloating. She would like to consider additional Flagyl to see if she can get some additional additional benefit. For her constipation she is taking Amitiza 8 mcg twice daily along with Linzess 145 mcg daily and MiraLAX 3 times a week. With this regimen she is having 3 formed bowel movements per day with good emptying but no improvement of her bloating. She denies any current problems with nausea or vomiting and did change the Reglan regimen to 5 mg 4 times daily, 30 minutes before meals/at bedtime. She denies any side effects with Reglan use. Her chronic left-sided abdominal pain is intermittent, worse with eating, and better with a bowel movement. She has rare bright red blood with wiping only. Her appetite is stable although she has lost 5 pounds since her 09/24/16 office visit. She is drinking Ensure 1-2 cans per day. At the request of Dr. Olivo she has decreased the Percocet use from 3 times daily to 1 p.o. daily. No recent lab work. No odynophagia, dysphagia, diarrhea, melena, hematemesis, anorexia. Review of Systems Constitutional: Positive for fever, chills, diaphoresis, fatigue and unexpected weight change. Negative for appetite change. HENT: Positive for ear pain, hearing loss, rhinorrhea, sinus pressure, sneezing and sore throat. Negative for drooling, trouble swallowing and voice change. Eyes: Positive for photophobia and visual disturbance. Respiratory: Negative. Negative for cough and choking. Cardiovascular: Negative. Negative for chest pain. Gastrointestinal: Positive for abdominal pain and abdominal distention. Negative for nausea, vomiting, diarrhea, constipation, blood in stool, anal bleeding and rectal pain. Endocrine: Negative. Genitourinary: Positive for enuresis. Negative for flank pain. Musculoskeletal: Positive for myalgias, arthralgias and gait problem. Negative for back pain. Skin: Negative for rash. Allergic/Immunologic: Negative. Neurological: Positive for light-headedness and headaches. Hematological: Negative for adenopathy. Psychiatric/Behavioral: Positive for confusion, decreased concentration and agitation. The patient is nervous/anxious. All other systems reviewed and are negative. Objective: atorvastatin (LIPITOR) 40 mg tablet Take 40 mg by mouth daily. CYANOCOBALAMIN (VITAMIN B-12 PO) Take by mouth. cyclobenzaprine (FLEXERIL) 10 mg tablet Take 10 mg by mouth three times daily as needed for Muscle Cramps. dronabinol (MARINOL) 5 mg capsule Take 5 mg by mouth twice daily. ERGOCALCIFEROL (VITAMIN D PO) Take 1,000 Units by mouth Daily. ERYTHROMYCIN BASE (ERYTHROMYCIN, BULK, MISC) Use as directed. escitalopram (LEXAPRO) 20 mg PO tablet Take 1 Tab by mouth daily. estradiol (ESTRACE) 1 mg tablet Take 2 mg by mouth Daily. linaclotide(+) (LINZESS) 145 mcg cap capsule Take 1 Cap by mouth daily 30 minutes before breakfast. LOT: [id number] Exp:05/11 lubiprostone (AMITIZA) 8 mcg cap capsule Take 24 mcg by mouth twice daily with meals. megestrol (MEGACE) 40 mg tablet Take 40 mg by mouth Daily. metoclopramide (REGLAN) 10 mg tablet Take 10 mg by mouth four times daily. Morphine 30 mg CSRP Take by mouth Every 12 Hours. morphine SR (AVINZA) 30 mg capsule Take 30 mg by mouth Daily. MULTIVITAMINS (MULTIVITAMIN PO) Take by mouth. omeprazole DR(+) (PRILOSEC) 40 mg capsule Take 40 mg by mouth daily before breakfast. other medication 1 Dose. humalog lantis 30 untis @@ night oxycodone/acetaminophen (PERCOCET) 5/325 mg tablet Take 1 Tab by mouth Every 4 Hours as needed for Pain. polyethylene glycol 3350 (MIRALAX) 17 gram/dose powder Take 17 g by mouth daily. pregabalin (LYRICA) 300 mg capsule Take 300 mg by mouth twice daily. prochlorperazine (COMPAZINE) 10 mg tablet Take 1 Tab by mouth Every 6 Hours as needed. promethazine (PHENERGAN) 25 mg tablet Take 1 Tab by mouth Every 6 Hours as needed for Nausea. promethazine (PHENERGAN) 25 mg tablet Take 1 Tab by mouth Three Times Daily as needed for Nausea. rivaroxaban (XARELTO) 20 mg tablet Take 20 mg by mouth daily. Take with food. spacer inhalation device (AEROCHAMBER) spcr by SEE ADMIN INSTRUCTIONS route as directed. Indications: PRN topiramate (TOPAMAX) 100 mg tablet Take 1 Tab by mouth Twice Daily. ZOLPIDEM TARTRATE (AMBIEN PO) Take by mouth. Filed Vitals: 11/21/16 1301 BP: 127/54 Pulse: 109 Temp: 36.8 C (98.3 F) TempSrc: Oral Resp: 16 Height: 158.8 cm (62.52") Weight: 43.364 kg (95 lb 9.6 oz) Body mass index is 17.2 kg/(m^2). Physical Exam Constitutional: She is oriented to person, place, and time. She appears well- developed and well-nourished. No distress. thin HENT: Head: Normocephalic and atraumatic. Mouth/Throat: Oropharynx is clear and moist. Eyes: Conjunctivae are normal. Pupils are equal, round, and reactive to light. No scleral icterus. Neck: Normal range of motion. Neck supple. No thyromegaly present. Cardiovascular: Normal rate, regular rhythm, normal heart sounds and intact distal pulses. No murmur heard. Pulmonary/Chest: Effort normal and breath sounds normal. No respiratory distress. Abdominal: Soft. Bowel sounds are normal. She exhibits no distension and no mass. There is tenderness. There is no rebound and no guarding. soft, mild left sided tenderness Musculoskeletal: Normal range of motion. She exhibits no edema. Lymphadenopathy: She has no cervical adenopathy. Neurological: She is alert and oriented to person, place, and time. Coordination normal. Skin: Skin is warm and dry. No rash noted. She is not diaphoretic. Psychiatric: She has a normal mood and affect. Her behavior is normal. Judgment and thought content normal. Vitals reviewed. Assessment and Plan: Pleasant 46-year-old female with multiple medical comorbidities including mood disorder nonspecified, suboptimally controlled diabetes complicated by neuropathy, metabolic syndrome now with the following issues: 1. GERD. Symptoms current well controlled with omeprazole 40 mg qd. 2. Dyspepsia with history of gastroparesis-likely combination of diabetic autonomic neuropathy as well as ongoing narcotic usage. Has been able to cut back Percocet to 1 po qd and good control of N/V with Reglan 5 mg qid ac/hs. 3. Altered bowel habits mainly manifest as constipation. Currently taking Amitiza 8 mcg bid AND Linzess 145 mcg qd along with Miralax TIW with good symptom control. 5. Abnormal LFTs-slight elevation in alkaline phosphatase as well as ALT on previous outside lab. 7. Lower abdominal pain, chronic. Improves with a BM. 8. History of SMA syndrome. No issues with weight loss at this time. Prior history of J-tube for nutritional support back in 2008 9. On chronic rivaroxaban. 10. Chronic bloating. Improved after 7 day course of Flagyl (could not tolerate Cipro due to increased vomiting) given empirically for SIBO. Xifaxin not covered by her insurance. 11. Weight loss. Has lost 5# since 09/24/16 OV despite Ensure 1-2 cans per day. Plan: 1. Lab today - TSH/Free T4, AM Cortisol, CMP. 2. Will give her an additional 10 days of Flagyl to see if she can get additional improvement of her bloating, will give her 250 mg tid X 10 days, reminded to take with food and avoid ETOH use while taking. 3. She feels Amitiza has not been that helpful. Will have her stop Amitiza and Linzess 145 mcg and try samples of Linzess 290 mcg for 2 weeks. She is to call with a progress report. If helpful will send in a rx and see if we can get it covered for her. She will take Miralax as needed as well. 4. Monitor weight closely. 5. Continue omeprazole once a day, take 30 minutes before breakfast. Due to long -term PPI use addition of Calcium + D 600 mg bid and yearly serum magnesium level and routine bone density testing through PCP recommended. Continue Reglan 5 mg four times a day, take 30 minutes before meals and at bedtime. Discussed side effect risk of Reglan use - she agrees to monitor and stop if SE occur. Reminded to continue gastroparesis diet. 6. Plan a follow up office visit in [address] Nichols who will be taking over her GI care, call as needed in the meantime. Patient was advised of the plan and voiced agreement and understanding. Total face to face time spent with patient: 35 minutes with >50% of that time spent counseling the patient on medications, prior study results related to symptoms, differential diagnosis, and options regarding the plan of care. Thank you for allowing me to see your patient in the office today. Please feel free to contact me if you have any questions or concerns. in this encounter Plan of Treatment Name Priority Associated Diagnoses Order Schedule COMPREHENSIVE METABOLIC PANEL Routine Weight loss Expected: 11/21/2016 Nausea and vomiting, (Approximate), Expires: intractability of 11/21/2017 vomiting not specified, unspecified vomiting type Elevated LFTs TSH WITH FREE T4 REFLEX Routine Weight loss Expected: 11/21/2016 Nausea and vomiting, (Approximate), Expires: intractability of 11/21/2017 vomiting not specified, unspecified vomiting type Elevated LFTs as of this encounter Results * CORTISOL-AM (12/16/2016) Component Value Ref Range Cortisol-AM 22.7 Specimen Performing Laboratory Blood OTHER OUTSIDE LAB in this encounter Visit Diagnoses Diagnosis Weight loss - Primary Loss of weight Nausea and vomiting, intractability of vomiting not specified, unspecified vomiting type Elevated LFTs Other abnormal blood chemistry Bloating Flatulence, eructation, and gas pain in this encounter
--- OUTSIDE RECORDS SUMMARY | 2017-01-20 13:03 | XMS REPORT ---
Author Author HORACE HIGGINS [facility] Address [address] [place] [address] Care Team Providers Care Barrel Washer Name Role Phone HORACE HIGGINS Unavailable PROBLEMS Type Condition ICD9-CM Code [id number] Code Onset Dates Condition Status SNOMED Code Problem Type 2 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 Active 58946159 Problem Type 2 diabetes mellitus without complications E11.9 Active 066509112 Problem Mixed hyperlipidemia E78.2 Active 817828353 Problem Primary insomnia F51.01 Active 6715782 Problem History of colon polyps Z86.010 Active 854427602 Problem Encounter for dental examination Z01.20 Active 120810393 Problem Uncomplicated asthma, unspecified asthma severity J45.909 Active 321168004 Problem Weight loss R63.4 Active 675105749 Problem Anorexia R63.0 Active 13355844 Problem Neuropathy G62.9 Active 360780093 Problem Back pain M54.9 Active 019799494 Problem Depressive disorder, not elsewhere classified 311 Active 08471291 Problem Diabetes E11.9 Active 16304036 Problem Gastroparesis K31.84 Active 825440101 Problem 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
--- OUTSIDE RECORDS SUMMARY | 2017-01-20 13:05 | XMS REPORT ---
Author Author HORACE HIGGINS [facility] Address [address] [place] [address] Care Team Providers Care School Clerk Name Role Phone HORACE HIGGINS Unavailable PROBLEMS Type Condition ICD9-CM Code GPL74-NG Code Onset Dates Condition Status SNOMED Code Problem Type 2 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 Active 24018115 Problem Type 2 diabetes mellitus without complications E11.9 Active 050552839 Problem Mixed hyperlipidemia E78.2 Active 851108107 Problem Primary insomnia F51.01 Active 0788462 Problem History of colon polyps Z86.010 Active 885972796 Problem Encounter for dental examination Z01.20 Active 674066333 Problem Uncomplicated asthma, unspecified asthma severity J45.909 Active 969969793 Problem Weight loss R63.4 Active 155782918 Problem Anorexia R63.0 Active 04177803 Problem Neuropathy G62.9 Active 879032110 Problem Back pain M54.9 Active 497003412 Problem Depressive disorder, not elsewhere classified 311 Active 60837156 Problem Diabetes E11.9 Active 85235483 Problem Gastroparesis K31.84 Active 319252953 Problem 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
--- OUTSIDE RECORDS SUMMARY | 2017-01-20 13:05 | XMS REPORT ---
Author Author HORACE HIGGINS [facility] Address [address] [place] [address] Care Team Providers Care Drafter Marine Name Role Phone HORACE HIGGINS Unavailable PROBLEMS Type Condition ICD9-CM Code [id number] Code Onset Dates Condition Status SNOMED Code Problem Type 2 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 Active 08734429 Problem Type 2 diabetes mellitus without complications E11.9 Active 244902867 Problem Mixed hyperlipidemia E78.2 Active 749847703 Problem Primary insomnia F51.01 Active 0425786 Problem History of colon polyps Z86.010 Active 309804311 Problem Encounter for dental examination Z01.20 Active 618484238 Problem Uncomplicated asthma, unspecified asthma severity J45.909 Active 993612920 Problem Weight loss R63.4 Active 508357547 Problem Anorexia R63.0 Active 65225959 Problem Neuropathy G62.9 Active 745384015 Problem Back pain M54.9 Active 162381557 Problem Depressive disorder, not elsewhere classified 311 Active 51894733 Problem Diabetes E11.9 Active 65886859 Problem Gastroparesis K31.84 Active 842520876 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
--- OUTSIDE RECORDS SUMMARY | 2017-01-20 13:06 | XMS REPORT ---
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 Active 42813145 Problem Type 2 diabetes mellitus without complications E11.9 Active 423900555 Problem Mixed hyperlipidemia E78.2 Active 257212313 Problem Primary insomnia F51.01 Active 5242792 Problem History of colon polyps Z86.010 Active 951673660 Problem Encounter for dental examination Z01.20 Active 312797345 Problem Uncomplicated asthma, unspecified asthma severity J45.909 Active 148053261 Problem Weight loss R63.4 Active 411476859 Problem Anorexia R63.0 Active 85650114 Problem Neuropathy G62.9 Active 398511503 Problem Back pain M54.9 Active 395154808 Problem Depressive disorder, not elsewhere classified 311 Active 47329476 Problem Diabetes E11.9 Active 30876362 Problem Gastroparesis K31.84 Active 873195835 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
--- OUTSIDE RECORDS SUMMARY | 2017-01-20 13:13 | XMS REPORT ---
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 Active 03937130 Problem Type 2 diabetes mellitus without complications E11.9 Active 475002183 Problem Mixed hyperlipidemia E78.2 Active 241343376 Problem Primary insomnia F51.01 Active 4626149 Problem History of colon polyps Z86.010 Active 212868795 Problem Encounter for dental examination Z01.20 Active 693407952 Problem Uncomplicated asthma, unspecified asthma severity J45.909 Active 953861026 Problem Weight loss R63.4 Active 423414420 Problem Anorexia R63.0 Active 45958810 Problem Neuropathy G62.9 Active 573723197 Problem Back pain M54.9 Active 746954319 Problem Depressive disorder, not elsewhere classified 311 Active 50688528 Problem Diabetes E11.9 Active 12689422 Problem Gastroparesis K31.84 Active 563404374 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
[2017-01-20 13:25] LABS: BLOOD UREA NITROGEN 15 MG/DL (7-18); BUN/CREATININE RATIO 14; CALCIUM 10.2 MG/DL (8.5-10.1); CHLORIDE 106 MMOL/L (98-107); CREATININE SERUM 1.07 MG/DL (0.60-1.30); GFR ESTIMATED > 60; GLUCOSE 311 MG/DL (70-105); POTASSIUM 3.3 MMOL/L (3.6-5.0); SODIUM 142 MMOL/L (135-145)
[2017-01-20 13:28] LABS: ANION GAP 28 MMOL/L (5-14); CARBON DIOXIDE 8 MMOL/L (21-32)
[2017-01-20 13:55] LABS: ABG BASE EXCESS -11.1 MMOL/L (-2.5-2.5); ABG OXYGEN SATURATION 99 % (94-100); ABG PCO2 25 MMHG (35-45); ABG PH 7.35 (7.37-7.43); ABG PO2 115 MMHG (79-93); ABG TCO2 14.4 MMOL/L (21.0-31.0)
[2017-01-20 13:56] LABS: ABG HCO3 14 MMOL/L (23-27); ALLENS TEST YES-POS
[2017-01-20 13:57] LABS: PATIENT TEMP 96.9
[2017-01-20] MEDS ORDERED: ONDANSETRON 4 MG/2 ML (SDV) Z0FRAN IVP ONE (14:15)
--- OUTSIDE RECORDS SUMMARY | 2017-01-20 14:29 | XMS REPORT | Encounter Summary ---
Author Author [facility] Organization [facility] Address Unknown Phone Unavailable Care Team Providers Care Digital Court Reporter Name Role Phone PCP Unavailable Reason for Visit * Reason Comments Gastroparesis Encounter Details Date Type Department Care Team Description 11/21/2016 Office Visit [facility] Ree Boswell ARNP Weight loss (Primary Physicians - Internal [address] Dx);Nausea and vomiting, Medicine [place] [address] [place] [address] [place] [address] vomiting not specified, [place], [place] [phone] unspecified vomiting [phone] type;Elevated [phone] LFTs;Bloating Social History Tobacco Use Types Packs/Day [...] if you have any questions or concerns. [phone]. in this encounter Progress Notes * Ellen Jovel LPN - 11/21/2016 2:35 PM CDT Lab was unable to draw adequate blood sample for lab completion here at . Pt stated she usually has labs drawn locally in [place], [place] where they are able to draw [...] mouth daily 30 minutes before breakfast. LOT: [id number] Exp:05/11 lubiprostone (AMITIZA) 8 mcg cap capsule [...]
--- OUTSIDE RECORDS SUMMARY | 2017-01-20 14:29 | XMS REPORT | Encounter Summary ---
Author Author [facility] Organization [facility] Address Unknown Phone Unavailable Care Team Providers Care Doctor Of Chiropractic Name Role Phone PCP Unavailable Encounter Details Date Type Department Care Team Description 11/21/2016 Hospital Q[facility] LAB Ree Boswell ARNP Abnormal weight loss Encounter [address] [place] [address] [address] [place], [place] [id number] Social History Tobacco Use Types Packs/Day Years [...]
--- OUTSIDE RECORDS SUMMARY | 2017-01-20 14:29 | XMS REPORT | Encounter Summary ---
Author Author [facility] Organization [facility] Address Unknown Phone Unavailable Care Team Providers Care Electrical Control Assembler Name Role Phone PCP Unavailable Reason for Visit * Reason Comments Other Encounter Details Date Type Department Care Team Description 12/13/2016 Telephone [facility] Ree Boswell ARNP Other Physicians - Internal [address] [facility] Medicine [place] [address] [facility] [place] [address] OFFICE BLDG [phone] [address] [place] [address] Social History Tobacco Use Types [...]
--- OUTSIDE RECORDS SUMMARY | 2017-01-20 14:29 | XMS REPORT | Encounter Summary ---
Author Author [facility] Organization [facility] Address Unknown Phone Unavailable Care Team Providers Care Tire Recapper Name Role Phone PCP Unavailable Encounter Details Date Type Department Care Team Description 12/23/2016 Orders Only [facility] Ree Boswell ARNP Weight loss;Nausea and Physicians - Internal [address] vomiting, intractability Medicine [place] [address] of vomiting not [address] [place] [address] specified, unspecified OFFICE BLDG [phone] vomiting type;Elevated [address]ND [place] [address] Social History Tobacco Use Types [...]
--- OUTSIDE RECORDS SUMMARY | 2017-01-20 14:29 | XMS REPORT | Clinical Summary ---
Author Author [facility] Organization [facility] Address Unknown Phone Unavailable Care Team Providers Care Automotive Parts Person Name Role Phone PCP Unavailable Source Comments Some departments are not documenting in the electronic medical record. If you do not see the information that you expected, contact Release of Information in the Health Information Management department at [phone] for further assistance in locating additional records.[facility] Allergies Active Allergy Reactions Severity [...]
[2017-01-20] MEDS ORDERED: inSUlin REGULAR TPN/DRIP ONLY 250 UNITS in NORMAL SALINE 250 ML IV SCH (14:30)
[2017-01-20] MEDS ORDERED: REGULAR inSUlin DRIP 250 UNITS/NS 250 ML IV SCH ×2 (15:45)
[2017-01-20] MEDS ORDERED: PROMETHAZINE INJ 25 MG/ML (PHENERGAN) AMP IV PRN (15:45)
[2017-01-20] MEDS: ONDANSETRON 4 MG/2 ML (SDV) Z0FRAN IV PRN (16:01)
[2017-01-20] MEDS: DEXTROSE 10% IV SOLUTION 1,000 ML IV SCH ×2 (16:02→22:45)
[2017-01-20] MEDS: D5 1/2 NS W/KCL 20 MEQ/L 1,000 ML IV SCH ×3 (16:02→18:30)
[2017-01-20] MEDS: 1/2 NS W/KCL 20 MEQ/L 1,000 ML IV SCH ×2 (16:02→21:06)
[2017-01-20] MEDS: D5 1/2 NS IV 1,000 ML IV SCH ×2 (16:03→21:07)
--- NOTE | 2017-01-20 16:06 | History & Physicial (CHS) ---
HPI History of Present Illness: 46 yo female with diabetes presented to ER after 3 days of vomiting and diarrhea , unable to keep anything down including medications and not taking insulin. She was admitted in September for a similar episode and had an EGD which showed gastritis and esophagitis, no H pylori, and there was concern for gastroparesis , but she has not yet had testing for gastroparesis. She has had chills, but has not checked her temperature. She denies blood in stool. She has felt short of breath. Date seen by provider: Jan 20, 2017 Time Seen by Provider: 16:02 Attending Physician Oly Piper MD PCP Chuck Frias MD Consult Date of Admission Jan 20, 2017 at 2:11 pm Home Medications Home Medications Reviewed patient Home Medication Reconciliation Form Allergies Coded Allergies: aspirin (Verified Allergy, Unknown, 10/25/13) Uncoded Allergies: NSAIDS (Allergy, Unknown, 10/25/13) COUMADIN (Adverse Reaction, Unknown, 10/25/13) VOMITS BLOOD PRS-Uevrll-Aylpxu Hx Patient Social History Smoking Status: Former Smoker Former smoker/When Quit: Oct 24, 2016 Type Used: Cigarettes Recent Foreign Travel: No Contact w/other who traveled: No Recent Hopitalizations: No Recent Infectious Disease Expo: No Immunizations Up To Date Tetanus Booster (TDap): Less than 5yrs Date of Pneumonia Vaccine: Jul 07, 2014 Date of Influenza Vaccine: Feb 23, 2015 Past Medical History PMHx: IDDM h/o PE after surgery 2013 Migraines PSurgHx: Umbilical hernia repair Hysterectomy Family Medical History Significant Family History: Heart Disease, Diabetes, Hypertension Review of Systems (CHC) Constitutional: see HPI EENTM: no symptoms reported Respiratory: No cough Cardiovascular: No chest pain Gastrointestinal: see HPI Genitourinary: no symptoms reported Musculoskeletal: other (leg pain) Skin: no symptoms reported Psychiatric/Neurological: No Symptoms Reported Reviewed Test Results Reviewed Test Results Lab Laboratory Tests Test 01/20/17 11:20 01/20/17 13:01 01/20/17 13:43 Range/Units White Blood Count 9.7 4.3-11.0 10^3/uL Red Blood Count 6.06 H 4.35-5.85 10^6/uL Hemoglobin 16.3 H 11.5-16.0 G/DL Hematocrit 50 35-52 % Mean Corpuscular Volume 82 80-99 FL Mean Corpuscular Hemoglobin 27 25-34 PG Mean Corpuscular Hemoglobin Concent 33 32-36 G/DL Red Cell Distribution Width 14.4 10.0-14.5 % Platelet Count 404 H 130-400 10^3/uL Mean Platelet Volume 11.4 H 7.4-10.4 FL Neutrophils (%) (Auto) 74 42-75 % Lymphocytes (%) (Auto) 21 12-44 % Monocytes (%) (Auto) 6 0-12 % Eosinophils (%) (Auto) 0 0-10 % Basophils (%) (Auto) 0 0-10 % Neutrophils # (Auto) 7.1 1.8-7.8 X 10^3 Lymphocytes # (Auto) 2.0 1.0-4.0 X 10^3 Monocytes # (Auto) 0.5 0.0-1.0 X 10^3 Eosinophils # (Auto) 0.0 0.0-0.3 10^3/uL Basophils # (Auto) 0.0 0.0-0.1 10^3/uL Sodium Level 141 142 135-145 MMOL/L Potassium Level 3.4 L 3.3 L 3.6-5.0 MMOL/L Chloride Level 98 106 98-107 MMOL/L Carbon Dioxide Level 11 L 8 *L 21-32 MMOL/L Anion Gap 32 H 28 H 5-14 MMOL/L Blood Urea Nitrogen 17 15 7-18 MG/DL Creatinine 1.28 1.07 0.60-1.30 MG/DL Estimat Glomerular Filtration Rate 55 > 60 BUN/Creatinine Ratio 13 14 Glucose Level 454 *H 311 H 70-105 MG/DL Calcium Level 11.4 H 10.2 H 8.5-10.1 MG/DL Total Bilirubin 0.5 0.1-1.0 MG/DL Aspartate Amino Transf (AST/SGOT) 15 5-34 U/L Alanine Aminotransferase (ALT/SGPT) 17 0-55 U/L Alkaline Phosphatase 180 H 40-136 U/L Total Protein 9.1 H 6.4-8.2 GM/DL Albumin 4.7 H 3.2-4.5 GM/DL Lipase 8 8-78 U/L Blood Gas Puncture Site RT RAD Blood Gas Patient Temperature 96.9 Arterial Blood pH 7.35 L 7.37-7.43 Arterial Blood Partial Pressure CO2 25 L 35-45 MMHG Arterial Blood Partial Pressure O2 115 H 79-93 MMHG Arterial Blood HCO3 14 *L 23-27 MMOL/L Arterial Blood Total CO2 14.4 L 21.0-31.0 MMOL/L Arterial Blood Oxygen Saturation 99 94-100 % Arterial Blood Base Excess -11.1 L -2.5-2.5 MMOL/L Ifeanyi Test YES-POS Blood Gas Ventilator Setting NO Blood Gas Inspired Oxygen ROOM AIR Physical Exam-([facility]) Physical Exam Vital Signs VS - Last 72 Hours, by Label 01/20/17 01/20/17 10:34 11:46 Temp 98.2 98.2 Pulse 120 Resp 18 B/P (MAP) 118/81 Pulse Ox 98 O2 Delivery Room Air Capillary Refill : Less Than 3 Seconds General Appearance: WD/WN, no apparent distress Respiratory: lungs clear, normal breath sounds Cardiovascular: regular rate, rhythm, no edema, no murmur Gastrointestinal: normal bowel sounds, soft, tenderness (left upper quadrant) Extremities: no pedal edema Neurologic/Psychiatric: alert, normal mood/affect Skin: normal color, warm/dry Assessment/Plan Assessment/Plan Admission Dx DKA Vomiting and diarrhea H/O PE Plan DKA- admit to ICU on insulin drip/DKA protocol Vomiting and diarrhea- IVF and zofran, if still unable to tolerate oral after resolution of DKA, may need to evaluate for gastroparesis H/O PE- resume home Xarelto DVT ppx- on anticoagulation (Xarelto) already Diagnosis/Problems: OLY PIPER MD Jan 20, 2017 4:06 pm
[2017-01-20] MEDS ORDERED: PREG300C PO (16:30)
[2017-01-20] MEDS ORDERED: ATOR40TA70 PO (16:30)
[2017-01-20] MEDS ORDERED: SUCR1TAB PO (16:30)
[2017-01-20] MEDS ORDERED: ONDA8TAB13 SL (16:30)
[2017-01-20] MEDS ORDERED: RT-ALBUTEROL HFA (VENTOLIN) PER PUFF IH PRN (16:45)
[2017-01-20] MEDS ORDERED: RT-ALBUTEROL SULF 2.5 MG/3 ML PRE-MIX VIAL IH PRN (17:30)
[2017-01-20 18:28] LABS: CARBON DIOXIDE 15 MMOL/L (21-32)
[2017-01-20] MEDS: METOCLOPRAMIDE 10 MG (REGLAN) TAB PO SCH ×2 (18:30→20:41)
[2017-01-20] MEDS: ATORVASTATIN 40 MG (LIPITOR) TABLET PO SCH (20:40)
[2017-01-20] MEDS: PREGABALIN 100 MG (LYRICA) CAPSULE PO SCH (20:40)
[2017-01-20] MEDS: oxyCODONE/APAP 10/325MG (PERCOCET 10) TABLET PO PRN (20:40)
[2017-01-20] MEDS: RIVAROXABAN 20 MG TABLET (XARELTO) PO SCH (20:41)
[2017-01-20 20:54] LABS: POTASSIUM 3.7 MMOL/L (3.6-5.0); SODIUM 139 MMOL/L (135-145)
[2017-01-20 20:55] LABS: ANION GAP 13 MMOL/L (5-14); BLOOD UREA NITROGEN 13 MG/DL (7-18); CHLORIDE 111 MMOL/L (98-107)
[2017-01-20 20:56] LABS: BUN/CREATININE RATIO 16; CALCIUM 8.5 MG/DL (8.5-10.1); CREATININE SERUM 0.81 MG/DL (0.60-1.30); GFR ESTIMATED > 60; GLUCOSE 227 MG/DL (70-105)
[2017-01-20] MEDS ORDERED: CYCLOBENZAPRINE 10 MG (FLEXERIL) TAB PO SCH (21:00)
[2017-01-20] MEDS ORDERED: DRONABINOL PO SCH (21:00)
[2017-01-20] MEDS ORDERED: PREGABALIN 300 MG PO SCH (21:00)
[2017-01-20] MEDS ORDERED: NON-FORMULARY MEDICATION 1 EA EA (Escitalopram Oxalate 20 MG) PO SCH (21:00)
[2017-01-20 23:42] LABS: ANION GAP 8 MMOL/L (5-14); BLOOD UREA NITROGEN 9 MG/DL (7-18); BUN/CREATININE RATIO 12; CALCIUM 8.8 MG/DL (8.5-10.1); CARBON DIOXIDE 15 MMOL/L (21-32); CHLORIDE 116 MMOL/L (98-107); CREATININE SERUM 0.73 MG/DL (0.60-1.30); GFR ESTIMATED > 60; GLUCOSE 147 MG/DL (70-105); SODIUM 139 MMOL/L (135-145)
[2017-01-21] VITALS (25 sets, daily range): BP systolic 87–148; BP diastolic 55–88
[2017-01-21] MEDS: D5 1/2 NS IV 1,000 ML IV SCH ×4 (01:06→09:56)
[2017-01-21] MEDS: 1/2 NS W/KCL 20 MEQ/L 1,000 ML IV SCH ×4 (01:06→09:57)
[2017-01-21 04:16] LABS: BASOPHILS % (AUTO) 0 % (0-10); EOSINOPHILS # (AUTO) 0.1 10^3/uL (0.0-0.3); EOSINOPHILS % (AUTO) 1 % (0-10); LYMPHOCYTES # (AUTO) 5.3 X 10^3 (1.0-4.0); LYMPHOCYTES % (AUTO) 53 % (12-44); MEAN CORPUSCULAR HEMOGLOBIN 27 PG (25-34); MEAN CORPUSCULAR HGB CONC 33 G/DL (32-36); MEAN CORPUSCULAR VOLUME 83 FL (80-99); MEAN PLATELET VOLUME 10.9 FL (7.4-10.4); MONOCYTES # (AUTO) 0.9 X 10^3 (0.0-1.0); MONOCYTES % (AUTO) 9 % (0-12); NEUTROPHILS # (AUTO) 3.9 X 10^3 (1.8-7.8); NEUTROPHILS % (AUTO) 38 % (42-75); PLATELET COUNT 301 10^3/uL (130-400); RED BLOOD COUNT 4.89 10^6/uL (4.35-5.85); RED CELL DISTRIBUTION WIDTH 14.2 % (10.0-14.5); WHITE BLOOD COUNT 10.2 10^3/uL (4.3-11.0)
[2017-01-21] MEDS: D5 1/2 NS W/KCL 20 MEQ/L 1,000 ML IV SCH ×3 (04:18→09:56)
[2017-01-21 04:40] LABS: ANION GAP 9 MMOL/L (5-14); BLOOD UREA NITROGEN 8 MG/DL (7-18); BUN/CREATININE RATIO 10; CARBON DIOXIDE 17 MMOL/L (21-32); CHLORIDE 115 MMOL/L (98-107); GFR ESTIMATED > 60; GLUCOSE 127 MG/DL (70-105); MAGNESIUM 1.6 MG/DL (1.8-2.4); PHOSPHORUS 1.9 MG/DL (2.3-4.7); POTASSIUM 3.8 MMOL/L (3.6-5.0); SODIUM 141 MMOL/L (135-145)
[2017-01-21] MEDS: POTASSIUM CL 10MEQ/50ML IVPB 50 ML IV SCH (05:00)
[2017-01-21] MEDS: KCL 20 MEQ TAB (K-DUR) PO SCH (05:00)
[2017-01-21] MEDS: MAGNESIUM 1 GM/100 ML IVPB 100 ML IV SCH (05:01)
[2017-01-21] MEDS ORDERED: MAGNESIUM 1 GM/100 ML IVPB 100 ML IV NR (06:45)
[2017-01-21] MEDS: PANTOPRAZOLE 40 MG (PROTONIX) TAB PO SCH (06:46)
[2017-01-21] MEDS: DRONABINOL 2.5 MG (MARINOL) CAP PO SCH ×2 (06:46→17:49)
--- NOTE | 2017-01-21 07:57 | Diagnostic Imaging Report ---
INDICATION: Dyspnea. Comparison made to prior examination 11/10/2016. FINDINGS: The heart size, mediastinal configuration, and pulmonary vascularity are within normal limits. There is no pleural effusion, pneumothorax, or pneumonia. The osseous structures are unremarkable. IMPRESSION: No acute cardiopulmonary abnormality. Dictated by: Dictated on workstation # [id number]
[2017-01-21] MEDS ORDERED: NON-FORMULARY MEDICATION 1 EA EA (Omeprazole 40 MG) PO SCH (09:00)
[2017-01-21] MEDS: PREGABALIN 100 MG (LYRICA) CAPSULE PO SCH ×2 (09:55→20:19)
[2017-01-21] MEDS: METOCLOPRAMIDE 10 MG (REGLAN) TAB PO SCH ×4 (09:55→20:20)
[2017-01-21] MEDS: oxyCODONE/APAP 10/325MG (PERCOCET 10) TABLET PO PRN ×3 (09:55→21:30)
[2017-01-21] MEDS: ONDANSETRON 4 MG/2 ML (SDV) Z0FRAN IV PRN (09:55)
[2017-01-21] MEDS: DEXTROSE 10% IV SOLUTION 1,000 ML IV SCH (09:56)
[2017-01-21] MEDS: inSUlin DETERMIR 1 UNIT/0.01 ML (LEVEMIR) CHARGE PER UNIT SQ SCH ×2 (11:44→18:48)
--- NOTE | 2017-01-21 12:18 | Physician Query Clarification ---
PQ-Further Specificity Admission/Discharge Admission Date: Jan 20, 2017 at 14:11 Discharge Date: The medical record reflects the following clinical scenario: History/Risk Factors: Diabetic Ketoacidosis Insulin Dependence Clinical Findings: Glucose on admission 454 Treatment:IV Insulin Question: Can you further specify Diabetes Mellitus per the clinical indicators above? Please document below. 1. Diabetes type 1 with ketoacidosis. 2. Diabetes type 2 with ketoacidosis. 3. Other, with explanation of the clinical findings. 4. Clinically undetermined, no explanation for the clinical findings. PHYSICIAN RESPONSE Can you specify per above: 2 In responding to this query, please exercise your independent professional judgment. The purpose of this communication is to more accurately reflect the complexity of your patients condition. The fact that a question is asked does not imply that any particular answer is desired or expected. Thank you for your timely response to this clarification. Requestors name: Demetra Foote CCS,[facility] Phone # ext [phone] or [phone] THIS PHYSICIAN QUERY FORM IS A PERMANENT PART OF THE MEDICAL RECORD DEMETRA FOOTE Jan 21, 2017 12:18 NANNETTE SANDOVAL MD Jan 21, 2017 16:56
[2017-01-21 12:48] LABS: ANION GAP 5 MMOL/L (5-14); BLOOD UREA NITROGEN 5 MG/DL (7-18); BUN/CREATININE RATIO 7; CALCIUM 8.9 MG/DL (8.5-10.1); CARBON DIOXIDE 18 MMOL/L (21-32); CHLORIDE 116 MMOL/L (98-107); GFR ESTIMATED > 60; GLUCOSE 157 MG/DL (70-105); POTASSIUM 4.2 MMOL/L (3.6-5.0); SODIUM 139 MMOL/L (135-145)
--- NOTE | 2017-01-21 16:22 | Progress Note (SOAP) ---
Subjective Subjective/Events-last exam Afebrile, no acute events. Has not vomited or had diarrhea. Anion gap closed. Review of Systems Date Seen by Provider: Jan 21, 2017 Time Seen by Provider: 09:55 Objective Exam Last Set of Vital Signs Vital Signs Date Time Temp Pulse Resp B/P (MAP) Pulse Ox O2 Delivery O2 Flow Rate FiO2 01/21/17 16:00 98.9 98 10 109/77 98 Room Air Capillary Refill : Less Than 3 Seconds I&O Intake and Output 01/22/17 00:00 Intake Total 3012.5 ml Output Total 2050 ml Balance 962.5 ml Intake Oral 660 ml IV Total 2352.5 ml Output Urine Total 2050 ml General: Alert, No Acute Distress Lungs: Clear to Auscultation, Normal Air Movement Heart: Regular Rate, No Murmurs Abdomen: Normal Bowel Sounds, No Tenderness Neuro: Normal Speech Psych/Mental Status: Mood NL Results/Procedures Lab Laboratory Tests 01/20/17 17:28: Glucometer 194H 01/20/17 18:05: Sodium Level 139, Potassium Level 3.7, Chloride Level 111H, Carbon Dioxide Level 15L, Anion Gap 13, Blood Urea Nitrogen 13, Creatinine 0.81, Estimat Glomerular Filtration Rate > 60, BUN/Creatinine Ratio 16, Glucose Level 227H, Calcium Level 8.5 01/20/17 18:28: Glucometer 218H 01/20/17 19:48: Glucometer 188H 01/20/17 20:44: Glucometer 201H 01/20/17 21:58: Glucometer 140H 01/20/17 22:27: Glucometer 144H 01/20/17 23:06: Sodium Level 139, Potassium Level 4.0, Chloride Level 116H, Carbon Dioxide Level 15L, Anion Gap 8, Blood Urea Nitrogen 9, Creatinine 0.73, Estimat Glomerular Filtration Rate > 60, BUN/Creatinine Ratio 12, Glucose Level 147H, Calcium Level 8.8 01/20/17 23:53: Glucometer 103 01/21/17 00:36: Glucometer 111H 01/21/17 01:19: Glucometer 133H 01/21/17 02:01: Glucometer 164H 01/21/17 03:20: Glucometer 154H 01/21/17 04:06: White Blood Count 10.2, Red Blood Count 4.89, Hemoglobin 13.2, Hematocrit 41, Mean Corpuscular Volume 83, Mean Corpuscular Hemoglobin 27, Mean Corpuscular Hemoglobin Concent 33, Red Cell Distribution Width 14.2, Platelet Count 301, Mean Platelet Volume 10.9H, Neutrophils (%) (Auto) 38L, Lymphocytes (%) (Auto) 53H, Monocytes (%) (Auto) 9, Eosinophils (%) (Auto) 1, Basophils (%) (Auto) 0, Neutrophils # (Auto) 3.9, Lymphocytes # (Auto) 5.3H, Monocytes # (Auto) 0.9, Eosinophils # (Auto) 0.1, Basophils # (Auto) 0.0, Sodium Level 141, Potassium Level 3.8, Chloride Level 115H, Carbon Dioxide Level 17L, Anion Gap 9, Blood Urea Nitrogen 8, Creatinine 0.80, Estimat Glomerular Filtration Rate > 60, BUN/ Creatinine Ratio 10, Glucose Level 127H, Calcium Level 9.0, Phosphorus Level 1.9L, Magnesium Level 1.6L 01/21/17 05:14: Glucometer 112H 01/21/17 05:57: Glucometer 112H 01/21/17 06:52: Glucometer 143H 01/21/17 07:37: Glucometer 176H 01/21/17 08:37: Glucometer 269H 01/21/17 09:44: Glucometer 230H 01/21/17 10:43: Glucometer 246H 01/21/17 11:48: Glucometer 182H 01/21/17 12:20: Sodium Level 139, Potassium Level 4.2, Chloride Level 116H, Carbon Dioxide Level 18L, Anion Gap 5, Blood Urea Nitrogen 5L, Creatinine 0.70, Estimat Glomerular Filtration Rate > 60, BUN/Creatinine Ratio 7, Glucose Level 157H, Calcium Level 8.9 01/21/17 12:46: Glucometer 123H 01/21/17 15:40: Glucometer 176H Assessment/Plan Assessment/Plan Admission Dx DKA Vomiting and diarrhea H/O PE Plan DKA- admit to ICU on insulin drip/DKA protocol 01/21- anion gap closed, resume home long and short acting insulin, stop insulin drip and D10 1 hour after initiation of long acting insulin. Monitor blood sugar qachs and 2 hours pp, sliding scale A Vomiting and diarrhea- IVF and zofran, if still unable to tolerate oral after resolution of DKA, may need to evaluate for gastroparesis Improving H/O PE- resume home Xarelto Medication management- discussed with patient the significant interaction possible between metaclopramide, escitalopram, duloxetine and cyclobenzaprine. Will d/c duloxetine as she already also has pregabalin for pain and continue escitalopram for mood. Will d/c cyclobenzaprine and consider tizanidine if muscle relaxer needed for pain. DVT ppx- on anticoagulation (Xarelto) already Diagnosis/Problems: Clinical Quality Measures DVT/VTE Risk/Contraindication: Risk Factor Score Per Nursin RFS Level Per Nursing on Admit: 3=High NANNETTE SANDOVAL MD Jan 21, 2017 16:22
[2017-01-21] MEDS: inSUlin ASPART (NovoLOG) 1 UNIT/0.01 ML (CHARGE PER UNIT) SC SCH ×2 (16:25→21:30)
[2017-01-21] MEDS: ATORVASTATIN 40 MG (LIPITOR) TABLET PO SCH (20:19)
[2017-01-21] MEDS: RIVAROXABAN 20 MG TABLET (XARELTO) PO SCH (20:19)
[2017-01-21] MEDS ORDERED: inSUlin DETERMIR 1 UNIT/0.01 ML (LEVEMIR) CHARGE PER UNIT SQ SCH (21:00)
[2017-01-21] MEDS ORDERED: NON-FORMULARY MEDICATION 1 EA EA (Insulin Glargine,Hum.rec.anlog (Lantus Solostar) 30 UNIT SQ SCH (21:00)
[2017-01-21] MEDS ORDERED: inSUlin ASPART (NovoLOG) 1 UNIT/0.01 ML (CHARGE PER UNIT) SC SCH (21:00)
[2017-01-22] VITALS (11 sets, daily range): BP systolic 65–138; BP diastolic 57–99
[2017-01-22] MEDS: oxyCODONE/APAP 10/325MG (PERCOCET 10) TABLET PO PRN ×4 (04:15→22:40)
[2017-01-22 04:33] LABS: MEAN PLATELET VOLUME 11.4 FL (7.4-10.4); RED BLOOD COUNT 4.66 10^6/uL (4.35-5.85); RED CELL DISTRIBUTION WIDTH 14.3 % (10.0-14.5); WHITE BLOOD COUNT 8.1 10^3/uL (4.3-11.0)
[2017-01-22 04:56] LABS: ANION GAP 11 MMOL/L (5-14); BLOOD UREA NITROGEN 7 MG/DL (7-18); BUN/CREATININE RATIO 10; CALCIUM 8.9 MG/DL (8.5-10.1); CARBON DIOXIDE 18 MMOL/L (21-32); CHLORIDE 114 MMOL/L (98-107); CREATININE SERUM 0.69 MG/DL (0.60-1.30); GFR ESTIMATED > 60; GLUCOSE 74 MG/DL (70-105); MAGNESIUM 1.8 MG/DL (1.8-2.4); PHOSPHORUS 3.6 MG/DL (2.3-4.7); POTASSIUM 3.6 MMOL/L (3.6-5.0); SODIUM 143 MMOL/L (135-145)
[2017-01-22] MEDS: MAGNESIUM 1 GM/100 ML IVPB 100 ML IV SCH (05:00)
[2017-01-22] MEDS: inSUlin ASPART (NovoLOG) 1 UNIT/0.01 ML (CHARGE PER UNIT) SC SCH ×8 (05:01→21:22)
[2017-01-22] MEDS: KCL 20 MEQ TAB (K-DUR) PO SCH (05:30)
[2017-01-22] MEDS: POTASSIUM CL 10MEQ/50ML IVPB 50 ML IV SCH (05:30)
[2017-01-22] MEDS: DRONABINOL 2.5 MG (MARINOL) CAP PO SCH ×2 (06:48→16:11)
[2017-01-22] MEDS: PANTOPRAZOLE 40 MG (PROTONIX) TAB PO SCH (06:48)
--- NOTE | 2017-01-22 08:18 | Physician Query Clarification ---
PQ-Conflicting Diagnosis Admission/Discharge Admission Date: Jan 20, 2017 at 14:11 Discharge Date: The medical record reflects the following clinical scenario: History/Risk Factors: Chronic low back pain Nausea and vomiting for 2 days Last Marinol/Oxycodone was 3 days before admission Clinical Findings: Moderate back pain Narcotic withdrawal documented by Rj Templeton APRN. Treatment: IV Magnesium Sulfate/Dextrose, IV Potassium Chloride, IV Zofran Question: Do you agree with the impression of Narcotic Withdrawal per Rj Templeton APRN . Please document a response below. PHYSICIAN RESPONSE Do you agree w/Consulting Dx?: Clinically undetermined In responding to this query, please exercise your independent professional judgment. The purpose of this communication is to more accurately reflect the complexity of your patients condition. The fact that a question is asked does not imply that any particular answer is desired or expected. Thank you for your timely response to this clarification. Requestors name: Demetra Foote [facility] Phone # ext [phone] or [phone] THIS PHYSICIAN QUERY FORM IS A PERMANENT PART OF THE MEDICAL RECORD DEMETRA FOOTE Jan 22, 2017 08:18 NANNETTE SANDOVAL MD Jan 22, 2017 22:37
[2017-01-22] MEDS: METOCLOPRAMIDE 10 MG (REGLAN) TAB PO SCH ×4 (10:04→21:30)
[2017-01-22] MEDS: PREGABALIN 100 MG (LYRICA) CAPSULE PO SCH ×2 (10:04→21:29)
--- NOTE | 2017-01-22 12:49 | Diagnostic Imaging Report ---
INDICATION: Cough. EXAMINATION: PA and lateral views of the chest. FINDINGS: The heart size and vascularity are normal. Lungs are clear. There is no effusion. There is no acute bony abnormality. IMPRESSION: No acute abnormality is seen. There is no change from 01/21/2017. Dictated by: Dictated on workstation # [id number]
--- NOTE | 2017-01-22 21:28 | Progress Note (SOAP) ---
Subjective Subjective/Events-last exam Afebrile, no acute events. She is tolerating some oral intake and blood sugar has not been high with diet and with home insulin. However, today she feels she has started to develop nasal congestion and chest congestion and cough which she did not have before. Review of Systems Date Seen by Provider: Jan 22, 2017 Time Seen by Provider: 09:30 Objective Exam Last Set of Vital Signs Vital Signs Date Time Temp Pulse Resp B/P (MAP) Pulse Ox O2 Delivery O2 Flow Rate FiO2 01/22/17 16:00 97.8 94 20 138/87 99 Room Air 01/21/17 16:00 Capillary Refill : Less Than 3 Seconds I&O Intake and Output 01/23/17 00:00 Intake Total 1400 ml Output Total 0 ml Balance 1400 ml Intake Oral 1400 ml Output Urine Total 0 ml # Voids 2 General: Alert, No Acute Distress Lungs: Clear to Auscultation, Normal Air Movement Heart: Regular Rate, No Murmurs Abdomen: Normal Bowel Sounds, Soft Neuro: Normal Speech Psych/Mental Status: Mental Status NL Results/Procedures Lab Laboratory Tests 01/21/17 21:29: Glucometer 78 01/22/17 03:53: White Blood Count 8.1, Red Blood Count 4.66, Hemoglobin 12.6, Hematocrit 39, Mean Corpuscular Volume 84, Mean Corpuscular Hemoglobin 27, Mean Corpuscular Hemoglobin Concent 32, Red Cell Distribution Width 14.3, Platelet Count 290, Mean Platelet Volume 11.4H, Sodium Level 143, Potassium Level 3.6, Chloride Level 114H, Carbon Dioxide Level 18L, Anion Gap 11, Blood Urea Nitrogen 7, Creatinine 0.69, Estimat Glomerular Filtration Rate > 60, BUN/Creatinine Ratio 10, Glucose Level 74, Calcium Level 8.9, Phosphorus Level 3.6, Magnesium Level 1.8 01/22/17 06:53: Glucometer 127H 01/22/17 12:40: Glucometer 49*L 01/22/17 13:44: Glucometer 106 01/22/17 21:13: Glucometer 83 Assessment/Plan Assessment/Plan Admission Dx DKA Vomiting and diarrhea H/O PE Plan DKA- admitted to ICU on insulin drip/DKA protocol 01/21- anion gap closed, resume home long and short acting insulin, stop insulin drip and D10 1 hour after initiation of long acting insulin. Monitor blood sugar qachs and 2 hours pp, sliding scale A 8/30- blood sugar stable to low and labs okay- transfer to floor- but she is feeling congested and coughing, will repeat CXR Vomiting and diarrhea- IVF and zofran, if still unable to tolerate oral after resolution of DKA, may need to evaluate for gastroparesis Improving H/O PE- resume home Xarelto Medication management- discussed with patient the significant interaction possible between metaclopramide, escitalopram, duloxetine and cyclobenzaprine. Will d/c duloxetine as she already also has pregabalin for pain and continue escitalopram for mood. Will d/c cyclobenzaprine and consider tizanidine if muscle relaxer needed for pain. DVT ppx- on anticoagulation (Xarelto) already Diagnosis/Problems: Clinical Quality Measures DVT/VTE Risk/Contraindication: Risk Factor Score Per Nursin RFS Level Per Nursing on Admit: 3=High NANNETTE SANDOVAL MD Jan 22, 2017 9:28 pm
[2017-01-22] MEDS: ATORVASTATIN 40 MG (LIPITOR) TABLET PO SCH (21:30)
[2017-01-22] MEDS: inSUlin DETERMIR 1 UNIT/0.01 ML (LEVEMIR) CHARGE PER UNIT SQ SCH (21:30)
[2017-01-22] MEDS: RIVAROXABAN 20 MG TABLET (XARELTO) PO SCH (21:30)
[2017-01-23] VITALS: BP 114/71
[2017-01-23 03:45] VITALS: BP 104/66
[2017-01-23] MEDS: inSUlin ASPART (NovoLOG) 1 UNIT/0.01 ML (CHARGE PER UNIT) SC SCH ×4 (05:20→11:18)
[2017-01-23] MEDS: oxyCODONE/APAP 10/325MG (PERCOCET 10) TABLET PO PRN ×2 (05:20→11:18)
[2017-01-23] MEDS: PANTOPRAZOLE 40 MG (PROTONIX) TAB PO SCH (06:12)
[2017-01-23] MEDS: DRONABINOL 2.5 MG (MARINOL) CAP PO SCH (06:12)
[2017-01-23 06:16] LABS: MEAN PLATELET VOLUME 11.4 FL (7.4-10.4); RED BLOOD COUNT 5.09 10^6/uL (4.35-5.85)
[2017-01-23 06:34] LABS: ANION GAP 7 MMOL/L (5-14); BLOOD UREA NITROGEN 14 MG/DL (7-18); BUN/CREATININE RATIO 20; CALCIUM 9.5 MG/DL (8.5-10.1); CARBON DIOXIDE 25 MMOL/L (21-32); CHLORIDE 107 MMOL/L (98-107); CREATININE SERUM 0.69 MG/DL (0.60-1.30); GFR ESTIMATED > 60; GLUCOSE 128 MG/DL (70-105); MAGNESIUM 1.9 MG/DL (1.8-2.4); POTASSIUM 4.8 MMOL/L (3.6-5.0); SODIUM 139 MMOL/L (135-145)
[2017-01-23 08:00] VITALS: BP 94/54
[2017-01-23] MEDS: METOCLOPRAMIDE 10 MG (REGLAN) TAB PO SCH (08:42)
[2017-01-23] MEDS: PREGABALIN 100 MG (LYRICA) CAPSULE PO SCH (08:42)
[2017-01-23] MEDS ORDERED: TIZA4TAB3 PO (11:30)
[2017-01-23] MEDS ORDERED: INSU100I10 SQ (11:30)
[2017-01-23] MEDS ORDERED: INSU100I23 SQ (11:30)
--- NOTE | 2017-01-23 11:34 | Discharge Instructions ---
Discharge [facility] Discharge Medications New, Converted or Re-Newed RX: Transmitted to Pharmacy New Medications: Tizanidine HCl (Tizanidine HCl) 4 Mg Tablet 4 MG PO BID PRN for pain/muscle spasm, #60 TAB 0 Refills Changed Medications: Insulin Glargine,Hum.rec.anlog (Lantus Solostar) 100 Unit/1 Ml Insuln.pen 10 UNITS SQ HS for 30 Days (Changed from: 30 UNITS) Insulin Lispro (Humalog Kwikpen) 100 Unit/1 Ml Insuln.pen 8 UNITS SQ AC for 30 Days (Changed from: BID@0800,1999) Continued Medications: Acetaminophen (Acetaminophen) 500 Mg Tablet 1000 MG PO HS PRN for PAIN-MILD, TAB TAKES 2 (500 MG) TABLETS Albuterol Sulfate (Albuterol Sulfate Hfa) 8.5 Gm Aer.w.adap 2 PUFF INH QID PRN for SHORTNESS OF BREATH Atorvastatin Calcium (Atorvastatin Calcium) 40 Mg Tablet 40 MG PO HS Cyanocobalamin (Vitamin B-12) 1,000 Mcg Tablet 1000 MCG PO DAILY Dronabinol (Marinol) 5 Mg Capsule 1 CAP PO BID TAKES BEFORE LUNCH AND SUPPER Escitalopram Oxalate (Escitalopram Oxalate) 20 Mg Tablet 20 MG PO HS Metoclopramide HCl (Metoclopramide HCl) 10 Mg Tablet 10 MG PO QID Multivitamins W-Iron (Multiple Vitamins With Iron) 1 Tab Tablet 1 TAB PO DAILY Omeprazole (Omeprazole) 40 Mg Capsule.dr 40 MG PO DAILY Ondansetron (Ondansetron Odt) 8 Mg Tab.rapdis 8 MG SL Q6H PRN for NAUSEA/VOMITING-1ST LINE Oxycodone HCl/Acetaminophen (Oxycodone-Acetaminophen 10-325) 1 Each Tablet 1 TAB PO QID PRN for PAIN-MODERATE Polyethylene Glycol 3350 (Polyethylene Glycol 3350) 255 Gm Powder 17 GM PO DAILY PRN for CONSTIPATION-2ND LINE Pregabalin (Lyrica) 300 Mg Capsule 300 MG PO BID Rivaroxaban (Xarelto) 20 Mg Tablet 20 MG PO HS Sucralfate (Sucralfate) 1 Gm Tablet 1 GM PO BID PRN for STOMACH UPSET, TAB Discontinued Medications: Cyclobenzaprine HCl (Cyclobenzaprine HCl) 10 Mg Tablet 10 MG PO TID Duloxetine HCl (Duloxetine HCl) 30 Mg Capsule.dr 30 MG PO HS Insulin Lispro (Humalog) 100 Unit/1 Ml Insuln.pen 10 UNIT SQ HS Zolpidem Tartrate (Zolpidem Tartrate) 10 Mg Tablet 10 MG PO HS Patient Instructions Goal/Follow Up Appt: Follow up with Carmen Verma APRN on Jan 29 at 1:20 pm. Patient Instructions: We stopped your cymbalta due to an interaction. We stopped your cyclobenzaprine due to an interaction but prescribed tizanidine instead for muscle relaxer/pain. We stopped your ambien because the dose is too high, suggested maximum dose is 5 mg for women, you should discuss this with your primary provider. You should take your Humalog (insulin lispro) before each meal (8 units) and your Lantus (insulin glargine) was decreased to 10 units nightly because you have not been eating well and your blood sugar is low. If your blood sugar starts increase above 160 consistently, you should call your doctor to adjust your insulin. Activity & Diet Discharge Diet: ADA Diet Activity as Tolerated: Yes Orders-Post D/C & Referrals Pneu Vac Indicated: Yes Copy Copies To 1: SEN Trinidad BETHANY N MD Jan 23, 2017 11:34 am
--- NOTE | 2017-01-23 11:37 | Discharge Summary ---
Diagnosis/Chief Complaint Date of Admission Jan 20, 2017 at 2:11 pm Date of Discharge Jan 23, 2017 Admission Diagnosis Admission Diagnosis DKA Vomiting and diarrhea H/O PE Discharge Diagnosis DKA- admitted to ICU on insulin drip/DKA protocol 01/21- anion gap closed, resume home long and short acting insulin, stop insulin drip and D10 1 hour after initiation of long acting insulin. Monitor blood sugar qachs and 2 hours pp, sliding scale A 01/22- blood sugar stable to low and labs okay- transfer to floor- but she is feeling congested and coughing, will repeat CXR 01/23- blood sugar stable with decreasing dose of Lantus to 10 units at bedtime, chest x-ray unremarkable Vomiting and diarrhea- IVF and zofran, if still unable to tolerate oral after resolution of DKA, may need to evaluate for gastroparesis Improving H/O PE- resumed home Xarelto Medication management- discussed with patient the significant interaction possible between metaclopramide, escitalopram, duloxetine and cyclobenzaprine. Will d/c duloxetine as she already also has pregabalin for pain and continue escitalopram for mood. Will d/c cyclobenzaprine and start tizanidine if muscle relaxer needed for pain. Also stopped her ambien as dose was above recommended. Chief Complaint/HPI Chief Complaint/HPI 46 yo female with diabetes presented to ER after 3 days of vomiting and diarrhea , unable to keep anything down including medications and not taking insulin. She was admitted in September for a similar episode and had an EGD which showed gastritis and esophagitis, no H pylori, and there was concern for gastroparesis , but she has not yet had testing for gastroparesis. She has had chills, but has not checked her temperature. She denies blood in stool. She has felt short of breath. Discharge Summary-Simple/Stand Consultations Discharge Physical Examination Allergies: Coded Allergies: aspirin (Verified Allergy, Unknown, 10/25/13) Uncoded Allergies: NSAIDS (Allergy, Unknown, 10/25/13) COUMADIN (Adverse Reaction, Unknown, 10/25/13) VOMITS BLOOD Vitals & I&Os Vital Sign - Last 12Hours Date Time Temp Pulse Resp B/P (MAP) Pulse Ox O2 Delivery O2 Flow Rate FiO2 01/23/17 08:41 Room Air 01/23/17 08:00 98.1 93 18 94/54 99 01/21/17 16:00 General Appearance: Alert, No Acute Distress Respiratory: Clear to Auscultation, Normal Air Movement Cardiovascular: Regular Rate, No Murmurs Abdominal: Normal Bowel Sounds, Soft Neuro: Normal Speech Psych/Mental Status: Mental Status NL Hospital Course See final discharge diagnosis. Labs Laboratory Tests Test 01/21/17 11:48 01/21/17 12:20 01/21/17 12:46 01/21/17 15:40 Range/Units Glucometer 182 H 123 H 176 H 70-110 MG/DL Sodium Level 139 135-145 MMOL/L Potassium Level 4.2 3.6-5.0 MMOL/L Chloride Level 116 H 98-107 MMOL/L Carbon Dioxide Level 18 L 21-32 MMOL/L Anion Gap 5 5-14 MMOL/L Blood Urea Nitrogen 5 L 7-18 MG/DL Creatinine 0.70 0.60-1.30 MG/DL Estimat Glomerular Filtration Rate > 60 BUN/Creatinine Ratio 7 Glucose Level 157 H 70-105 MG/DL Calcium Level 8.9 8.5-10.1 MG/DL Test 01/21/17 18:37 01/21/17 21:29 01/22/17 03:53 01/22/17 06:53 Range/Units Glucometer 71 78 127 H 70-110 MG/DL White Blood Count 8.1 4.3-11.0 10^3/uL Red Blood Count 4.66 4.35-5.85 10^6/uL Hemoglobin 12.6 11.5-16.0 G/DL Hematocrit 39 35-52 % Mean Corpuscular Volume 84 80-99 FL Mean Corpuscular Hemoglobin 27 25-34 PG Mean Corpuscular Hemoglobin Concent 32 32-36 G/DL Red Cell Distribution Width 14.3 10.0-14.5 % Platelet Count 290 130-400 10^3/uL Mean Platelet Volume 11.4 H 7.4-10.4 FL Sodium Level 143 135-145 MMOL/L Potassium Level 3.6 3.6-5.0 MMOL/L Chloride Level 114 H 98-107 MMOL/L Carbon Dioxide Level 18 L 21-32 MMOL/L Anion Gap 11 5-14 MMOL/L Blood Urea Nitrogen 7 7-18 MG/DL Creatinine 0.69 0.60-1.30 MG/DL Estimat Glomerular Filtration Rate > 60 BUN/Creatinine Ratio 10 Glucose Level 74 70-105 MG/DL Calcium Level 8.9 8.5-10.1 MG/DL Phosphorus Level 3.6 2.3-4.7 MG/DL Magnesium Level 1.8 1.8-2.4 MG/DL Test 01/22/17 12:40 01/22/17 13:44 01/22/17 16:30 01/22/17 21:13 Range/Units Glucometer 49 *L 106 205 H 83 70-110 MG/DL Test 01/23/17 04:59 01/23/17 06:00 Range/Units Glucometer 129 H 70-110 MG/DL White Blood Count 9.0 4.3-11.0 10^3/uL Red Blood Count 5.09 4.35-5.85 10^6/uL Hemoglobin 13.7 11.5-16.0 G/DL Hematocrit 42 35-52 % Mean Corpuscular Volume 83 80-99 FL Mean Corpuscular Hemoglobin 27 25-34 PG Mean Corpuscular Hemoglobin Concent 32 32-36 G/DL Red Cell Distribution Width 14.0 10.0-14.5 % Platelet Count 289 130-400 10^3/uL Mean Platelet Volume 11.4 H 7.4-10.4 FL Sodium Level 139 135-145 MMOL/L Potassium Level 4.8 3.6-5.0 MMOL/L Chloride Level 107 98-107 MMOL/L Carbon Dioxide Level 25 21-32 MMOL/L Anion Gap 7 5-14 MMOL/L Blood Urea Nitrogen 14 7-18 MG/DL Creatinine 0.69 0.60-1.30 MG/DL Estimat Glomerular Filtration Rate > 60 BUN/Creatinine Ratio 20 Glucose Level 128 H 70-105 MG/DL Calcium Level 9.5 8.5-10.1 MG/DL Magnesium Level 1.9 1.8-2.4 MG/DL Discharge Instructions to patient/family Please see [employer]onic discharge instructions given to patient. Discharge Medications Reviewed and agree with Discharge Medication list on patient's Discharge Instruction sheet Clinical Quality Measures DVT/VTE Risk/Contraindication: Risk Factor Score Per Nursin RFS Level Per Nursing on Admit: 3=High Copy Copies To 1: SEN Trinidad BETHANY N MD Jan 23, 2017 11:37 am
[2017-01-23] MEDS ORDERED: inSUlin DETERMIR 1 UNIT/0.01 ML (LEVEMIR) CHARGE PER UNIT SQ SCH (21:00)
== END 2017-01-23 12:35 | disposition home or self-care (01) | DRG 639 ==
LOC: EDUNIT# 09:32 → ER 09:36 → ICU 14:11 → 4TH 01-22 11:45
PROVIDERS: ADMIT Family Medicine; ATTEND Family Medicine
DX: E13.10 Other specified diabetes mellitus with ketoacidosis without coma (principal); E11.40 Type 2 diabetes mellitus with diabetic neuropathy, unspecified; R11.2 Nausea with vomiting, unspecified; R19.7 Diarrhea, unspecified; R09.81 Nasal congestion; R05 Cough; R09.89 Other specified symptoms and signs involving the circulatory and respiratory systems; J45.909 Unspecified asthma, uncomplicated; M79.7 Fibromyalgia; M54.16 Radiculopathy, lumbar region; K21.9 Gastro-esophageal reflux disease without esophagitis; K58.9 Irritable bowel syndrome, unspecified; F32.9 Major depressive disorder, single episode, unspecified; Z86.711 Personal history of pulmonary embolism; Z79.01 Long term (current) use of anticoagulants; Z85.43 Personal history of malignant neoplasm of ovary; Z87.19 Personal history of other diseases of the digestive system
CPT/HCPCS: 36415; 71010; 71020; 80048; 80053; 82805; 82962; 83690; 83735; 84100; 85025; 85027; 96361; 96374; 96375

== ENCOUNTER 2017-02-18 14:47 | Outpatient (RCR) | payer MEDICARE, MEDICAID ==
[~2017-02-18 14:47] MED LIST changes: +ATOR40TA70 PO; +ONDA8TAB13 SL; +TIZA4TAB3 PO
[2017-02-18 15:07] LABS: BASOPHILS % (AUTO) 0 % (0-10); EOSINOPHILS # (AUTO) 0.1 10^3/uL (0.0-0.3); EOSINOPHILS % (AUTO) 1 % (0-10); LYMPHOCYTES # (AUTO) 3.9 X 10^3 (1.0-4.0); LYMPHOCYTES % (AUTO) 38 % (12-44); MEAN CORPUSCULAR HEMOGLOBIN 27 PG (25-34); MEAN CORPUSCULAR HGB CONC 33 G/DL (32-36); MEAN CORPUSCULAR VOLUME 84 FL (80-99); MEAN PLATELET VOLUME 10.8 FL (7.4-10.4); MONOCYTES # (AUTO) 0.7 X 10^3 (0.0-1.0); MONOCYTES % (AUTO) 6 % (0-12); NEUTROPHILS # (AUTO) 5.7 X 10^3 (1.8-7.8); NEUTROPHILS % (AUTO) 55 % (42-75); PLATELET COUNT 329 10^3/uL (130-400); RED BLOOD COUNT 4.84 10^6/uL (4.35-5.85); RED CELL DISTRIBUTION WIDTH 14.9 % (10.0-14.5); WHITE BLOOD COUNT 10.3 10^3/uL (4.3-11.0)
[2017-02-18 15:27] LABS: ALANINE AMINOTRANSFERASE 15 U/L (0-55); ALBUMIN 3.7 GM/DL (3.2-4.5); ANION GAP 12 MMOL/L (5-14); ASPARTATE AMINO TRANSFERASE 15 U/L (5-34); BILIRUBIN,TOTAL 0.4 MG/DL (0.1-1.0); BLOOD UREA NITROGEN 8 MG/DL (7-18); BUN/CREATININE RATIO 11; CALCIUM 9.5 MG/DL (8.5-10.1); CARBON DIOXIDE 21 MMOL/L (21-32); CHLORIDE 108 MMOL/L (98-107); CREATININE SERUM 0.76 MG/DL (0.60-1.30); GFR ESTIMATED > 60; GLUCOSE 77 MG/DL (70-105); POTASSIUM 3.3 MMOL/L (3.6-5.0); SODIUM 141 MMOL/L (135-145); TOTAL PROTEIN 7.1 GM/DL (6.4-8.2)
== END 2017-02-22 | disposition home or self-care (01) ==
LOC: ONC 14:47
PROVIDERS: ATTEND Internal Medicine Hematology & Oncology
DX: I27.82 Chronic pulmonary embolism (principal); D64.9 Anemia, unspecified; E11.9 Type 2 diabetes mellitus without complications; F32.9 Major depressive disorder, single episode, unspecified; Z79.01 Long term (current) use of anticoagulants; Z79.899 Other long term (current) drug therapy; F17.210 Nicotine dependence, cigarettes, uncomplicated
CPT/HCPCS: 36415; 80053; 85025; 99213

== ENCOUNTER 2017-02-27 15:11 | Emergency (ER) | payer MEDICARE, MEDICAID ==
[~2017-02-27] VITALS: Ht 157.5 cm; Wt 38.6 kg
--- OUTSIDE RECORDS SUMMARY | 2017-02-27 15:17 | XMS REPORT | Continuity of Care Document ---
Author Author [employer] Organization [facility] Address Unknown Phone Unavailable Care Team Providers Care Finance Assistant Name Role Phone [employer] Unavailable Unavailable Problems Medications Allergies, Adverse Reactions, Alerts Immunizations Results Vital Signs Encounters Location Location Details Encounter Type Encounter Number Reason For Visit Attending Provider ADM Date DC Date Status Source OUTPATIENT [id number] [facility] OCHOA 11/21/2016 11/21/2016 Active [facility] Marcello ELLIOTT 02/21/2017 02/21/2017 Active [facility] Procedures Plan of Care Social History Assessment and Plan Family History Value Date Source Advance Directives Order Name Results Value Date Source
--- OUTSIDE RECORDS SUMMARY | 2017-02-27 15:18 | XMS REPORT | Encounter Summary ---
Author Author [facility] Organization [facility] Address Unknown Phone Unavailable Care Team Providers Care Optic Fibre Drawer Name Role Phone PCP Unavailable Encounter Details Date Type Department Care Team Description 04/03/2017 Procedure Pass Gastrointenstinal Endoscopy [address] [place] [address] Social History Tobacco Use Types Packs/Day Years Used Date Current Every Day Smoker Cigarettes Quit: 01/24/2009 Alcohol Use Drinks/Week oz/Week Comments No 0 Standard 0.0 drinks or equivalent Sex Assigned at Date Recorded Not on file as of this encounter Plan of Treatment Date Type Specialty Care Team Description 04/03/2017 Surgery Franklin Nichols MD COLONOSCOPY [address] [place] [address] 04/03/2017 Procedure Pass 04/03/2017 Hospital Franklin Nichols MD Constipation Encounter [address] [place] [address] as of this encounter Visit Diagnoses Not on filein this encounter
--- OUTSIDE RECORDS SUMMARY | 2017-02-27 15:18 | XMS REPORT | Encounter Summary ---
Author Author [facility] Organization [facility] Address Unknown Phone Unavailable Care Team Providers Care Aircraft Life Support Fitter Name Role Phone PCP Unavailable Reason for Referral * Consult, Test & Treat Status Reason Specialty Diagnoses / Referred By Referred To Procedures Contact Contact New Request Specialty Neurology Diagnoses Kellie, Services Other type of Agatha, RUBBER CALENDER HELPER-CHIEF DEPUTY CLERK/BAILIFF Required migraine [address] headache, [place] [address] chronicity Phone: pattern, unspecified Fax: headache type [phone] * Radiology Services Status Reason Specialty Diagnoses / Referred By Referred To Procedures Contact Contact New Request Radiology Diagnoses Kellie, Asymptomatic Agatha, RUBBER CALENDER HELPER-CHIEF DEPUTY CLERK/BAILIFF menopausal state [address] [place] [address] Encounter for Phone: monitoring [phone] long-term proton Fax: pump inhibitor [phone] therapy P rocedures BONE DENSITY SPINE/HIP * Consult, Test & Treat Status Reason Specialty Diagnoses / Referred By Referred To Procedures Contact Contact New Request Specialty Anesthesia Pain Diagnoses Kellie, Services Abdominal pain, Agatha, RUBBER CALENDER HELPER-CHIEF DEPUTY CLERK/BAILIFF Required unspecified [address] [place] [address] Reason for Visit * Reason Comments Gastroparesis Constipation Encounter Details Date Type Department Care Team Description 02/21/2017 Office Visit [facility] KellieAgatha, Constipation, unspecified Physicians - Internal RUBBER CALENDER HELPER-CHIEF DEPUTY CLERK/BAILIFF constipation type Medicine [address] (Primary Dx);Abdominal [address] [place] [address] pain, unspecified [address] MED [phone] location;Cigarette OFFICE [facility] smoker;Vitamin D [place], [place] deficiency;[place] [address] monitoring long-term [phone] proton pump inhibitor therapy;Other type of migraine;Nonintractable headache, unspecified chronicity pattern, unspecified headache type;Nausea and vomiting, intractability of vomiting not specified, unspecified vomiting type;Anticoagulant long-term use Social History Tobacco Use Types Packs/Day Years Used Date Current Every Day Smoker Cigarettes Quit: 01/24/2009 Alcohol Use Drinks/Week oz/Week Comments No 0 Standard 0.0 drinks or equivalent Sex Assigned at Date Recorded Not on file as of this encounter Last Filed Vital Signs Vital Sign Reading Time Taken Blood Pressure 133/85 02/21/2017 10:14 AM CDT Pulse 101 02/21/2017 10:14 AM CDT Temperature - - Respiratory Rate 18 02/21/2017 10:14 AM CDT Oxygen Saturation - - Inhaled Oxygen - - Concentration Weight 41.5 kg (91 lb 9.6 oz) 02/21/2017 10:14 AM CDT Height 158.8 cm (5' 2.5") 02/21/2017 10:14 AM CDT Body Mass Index 16.49 02/21/2017 10:14 AM CDT in this encounter Instructions * Patient Instructions - Agatha Hopkins APRN-MELI - 02/21/2017 11:40 AM CDT Formatting of this note may be different from the original. With the presence of unintentional lipsmacking we would like to stop her Reglan. I understand that this is the only thing you feel helps and would like to continue with this drug with the understanding that extraparametal side effects are not reversible. Instead of continuing with the current dose of 4 times daily we would at least like to decrease Reglan to 3 times a day; 2 doses prior to meals and final dose before bed. I would like to further decrease the amount of Reglan needed to control your symptoms. Some things that will help further control your gastroparesis include stopping all narcotic pain medication , stopping marijuana use, tight control of blood sugar, and small meals frequently throughout the day. Please be aggressive with these interventions so we can get you off of Reglan. We will print off requisitions for you to have your blood drawn and the results faxed to our clinic. We will write you a prescription for Linzess 145 mcg and send it to [facility] in [place]. We would like you to take your omeprazole 30 minutes to 1 hour prior to first meal a day Start taking a probiotic. We recommend align which is [id number]. We will call a prescription in for you for VSL #3. You can compare prices and choose which one you would like to take. Please keep your appointment on March 03 with dietary and discuss increasing caloric intake and gastroparesis diet with them. We will give you a handout on gastroparesis diet. You are at risk for poor bone density being a smoker, of slight stature, and around the age of menopause. We will print off over requisition for you to get a DEXA/bone density scan. You may get this locally. We would prefer for you to have your colonoscopy done here, at , with your current GI provider; as opposed to locally. We would also like to do an EGD at the time of colonoscopy. I understand you are working with her blasting clay miner regarding your blood thinners prior to the procedure and will be doing Lovenox shots the days prior to your colonoscopy. Please do not take your evening dose of Lovenox nor Lovenox the day of the procedure. We will write you a referral to re-establish with neurology. Please see them as soon as possible regarding her headaches/chronic migraines. We will also a print off a requisition for pain management, because you experience significant left lower quadrant tenderness especially when moving the muscle, you may be a candidate for trigger point injection injections. Continue taking calcium and vitamin D daily. This is important for your bone density. Please work with primary care provider to stop smoking. Smoking cessation education will be provided. Kicking the Smoking Habit If you smoke, quitting is one of the best changes you can make for your heart and your overall health. Your risk of heart attack goes down within one day of putting out that last cigarette. As you go longer without smoking, your risk goes down even more. Quitting isnt easy, but millions of people have done it. You can, too. Its never too late to quit. Getting started Boost your chances of success by deciding on your quit plan. Your health care provider and cardiac rehab team can help you develop this plan. Even if you ve already quit, its easy to slip back into smoking. Your plan can help you avoid and recover from relapse. In any case, start by setting a date to quit within a month, and do it. [place] to your quit plan Talk to your healthcare provider about prescription medicines and nicotine replacement products that help stop the urge to smoke. Join a support group or quit smoking program. Talking with others about the challenges of quitting can help you get through them. Ask other smokers in your household to quit with you. Look for the cues in your life that you associate with smoking and avoid them. Track your triggers What gives you that Q-szvg-c-cigarette feeling? List all the situations that make you want a cigarette. Then think of other ways to deal with these situations. Here are some examples: Situation How I'll handle it Finishing a meal Get up from the table and take a walk Having an argument Find a quiet place and breathe deeply Feeling lonely or bored Call a friend to talk Tips for quitting successfully List the benefits of quitting such as reducing heart risks and saving money. Keep this list and review it whenever you feel like smoking. Get support. Let your friends know you may call them to chat when you have an urge to smoke. If youve tried to quit before without success, this time avoid the triggers that may cause the relapse. Make the most of slip-ups. Try to learn from them, and then get back on track. Be accountable to your friends and your calendar so that you stay on track. For family and friends Be supportive and patient. Quitting smoking can be difficult and stressful. If you smoke, nows a great time to quit. Even if you dont quit, never smoke around your loved one. Secondhand smoke is dangerous to his or her heart. The best goals are accomplished in teams. Remember that when your loved one states he or she wants to stop smoking. Date Last Reviewed: 11/24/201519998481-1558 [employer]. [address] [facility], [place] [address]. All rights reserved. This information is not intended as a substitute for professional medical care. Always follow your healthcare professional's instructions. Diabetic Gastroparesis Gastroparesis,ordelayed gastric emptying,is when food moves through the stomach more slowly than normal. In someone with diabetes, its caused by damage to the vagus nerve because of chronic high blood sugar. (Other chronic diseases may also cause gastroparesis.) The vagus nerve helps control how food moves through the digestive system. When this nerve is damaged, the movement of food is slowed down or stopped. Food that stays in the stomach for too long can cause problems. Food can ferment in the stomach, causing bacteria to grow. Undigested food can also harden into masses called bezoars. These can cause nausea and vomiting. In some cases they may block food from passing from the stomach to the small intestine. Gastroparesis can make it hard to manage blood sugar levels. It can also cause problems with vitamins and minerals being absorbed into the body as well as maintaining a healthy weight. Symptoms of diabetic gastroparesis include: Nausea Vomiting Feeling full after eating a small amount of food Abdominal pain or cramps Heartburn Abdominal bloating Weight loss Loss of appetite High or low blood sugar levels There are several different tests and studies that canhelp diagnose gastroparesis. For many people, gastroparesis is a lifelong condition. Managing it will likely include changes in how you eat. You may be prescribed medicine to help with blood sugar levels,help your symptoms like nausea and vomiting, or act on muscles in the digestive system. In severe cases, surgery to insert a feeding tube may be needed. Or a special device may be implanted to encourage the stomach muscles to contract. Home care These changes may help relieve your symptoms: Take prescribed medicines exactly as directed. Eat a liquid or soft diet if advised. Eat frequent small meals instead of less frequent large meals. Avoid foods that are high in fat(such as whole milk, cheese, and fried foods)or fiber(such as beans, and many fruits and vegetables). These can slow digestion. People with diabetes should always control sugar levels as well as possible as directed by your healthcare provider. Follow-up care Follow up with your healthcare provider as advised. Regular visits may be needed to manage gastroparesis. When to seek medical advice Call your healthcare provider right away if any of these occur. Severe pain in your abdomen Inability to keep down food or liquids Weight loss Other symptoms as directed by your healthcare provider Date Last Reviewed: 05/21/201519993647-0939 [employer]. [address] [place] [address], [place] [address]. All rights reserved. This information is not intended as a substitute for professional medical care. Always follow your healthcare professional's instructions. Gastroparesis Gastroparesis (also called delayed gastric emptying) occurs when the stomach takes longer than normal to empty of food. This is due to a problem with motility (the movement of the muscles in the digestive tract). The nerves to the stomach are damaged or do not work properly (neuropathy). For many people, gastroparesis is a lifelong condition. But treatment can help relieve symptoms and prevent complications. How Gastroparesis Develops Gastroparesis means that food and fluids move too slowly out of the stomach into the duodenum. With normal digestion, signals from nerves tell the stomach muscles when to contract. These muscles move food from the stomach into the duodenum (the first part of the small bowel). With gastroparesis, the nerves are damaged. This causes motility to slow down or stop completely. As a result, food cannot properly move from the stomach. Malnutrition can result. Bezoars (hardened lumps of food) can form in the stomach and cause other complications as well. Causes of Gastroparesis Gastroparesis can be caused by any of the following: Diabetes (blood sugar control is important) Surgery involving any of the digestive organs, such as the stomach and bowels Certain medications, such as strong pain medications (narcotics) Certain conditions, such as systemic scleroderma, Parkinsons disease, and thyroid disease In many cases, the cause of gastroparesis cannot be found. Signs and Symptoms of Gastroparesis These can include: Nausea and vomiting Feeling full quickly when eating Abdominal pain Heartburn Abdominal bloating Weight loss Loss of appetite High and low blood sugar levels (in people withdiabetes) Diagnosing Gastroparesis Your doctor will ask about your symptoms and health history. Youll also be examined. In addition, blood tests and X-rays are often done to check your health and rule out other problems. To confirm the problem, you may need other tests as well. These can include: Upper endoscopy.This is doneto see inside the stomach and duodenum. For the test, an endoscope is used. This is a thin, flexible tube with a tiny camera on the end. Its inserted through the mouth and down into the stomach and duodenum. Upper gastrointestinal (GI) series.This is doneto take X-rays of the upper GI tract from the mouth to the small bowel. For the test, a substance called barium is used. The barium coats the upper GI tract so that it will show up clearly on X-rays. Gastric emptying scan.This is done to measure how quickly food leaves the stomach. For the test, a meal containing a harmless radioactive substance ( tracer) is eaten. Then scans of the stomach are done. The tracer shows up clearly on the scans and shows the movement of the food through the stomach. Treating Gastroparesis The goal of treatment is to help you manage your condition. Treatment may include one or more of the following: Dietary changes.You may need to make changes to your eating habits and daily diet. For instance, your doctor may instruct you to eat small, frequent (4 -6) meals throughout the day. Doing this can keep you from feeling full too quickly. You may be placed on a liquid or soft diet. This means youll eat liquid foods or foods that are mashed or put through a environmental protection inspector. In addition , you may need to avoid foods high in fats and fiber. These can slow digestion ( delay stomach emptying). Chew foods well before swallowing. Solid foods in the stomach do not empty well. Drink fluids during your meal and sit upright or walk after meals to aid in digestion. For more help with your diet, your doctor can refer you to a dietitian. In severe cases, you may need a feeding tube. This sends liquid food or medication directly to your small bowel, bypassing the stomach. Foods to try: Milk Custard applesauce Instant breakfast Smoothies Cooked and blended vegetables Milkshakes Soup Scrambled egg Yogurt Pureed foods Liquid nutrition (Ensure) Puddings Canned fruit Banana Ice cream Juice Crackers Medications.These can help manage symptoms, such as nausea and vomiting. They can also improve motility. Each medication has specific risks and side effects. Your doctor can tell you more about any medication that is prescribed for you. Surgery.You may need to have a tube surgically inserted into the stomach. The tube removes excess air and fluid. This can relieve severe symptoms of nausea and vomiting. In rare cases, other surgery may be needed on the stomach or small bowel. This is to create a new passageway for food to be emptied from the stomach. Diabetes and Gastroparesis If you have diabetes, gastroparesis can make it harder to manage your blood sugar level. Youll need to take extra steps in your treatment to prevent complications. Work with your doctor to learn what you can do to protect your health. Long-term Concerns With treatment, most people can manage their symptoms and maintain their usual routines. If your symptoms are moderate to severe, you may need to see your doctor more frequently for checkups. Also, other treatments will likely be needed. Date Last Reviewed: [facility], [address] [place] [address], [place] [address]. All rights reserved. This information is not intended as a substitute for professional medical care. Always follow your healthcare professional's instructions. This information has been modified by your health care provider with permission from the publisher. in this encounter Progress Notes * Agatha Hopkins APRN-NP - 02/21/2017 10:00 AM CDT Formatting of this note may be different from the original. Date of Service: 02/21/2017 Subjective: Sunitha Feldman is a 46 y.o. female prior patient of Dr. Olivo, current patient of Dr. 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 History of Present Illness Pleasant 46-year-old female [...] has been more helpful but having coverage issues, 290mcg tried but caused too much diarreaha. Outside CT abdomen and pelvis with contrast [...] B12 deficiency and remains on maintenance therapy. 11. Bloating - Xifaxan for empiric treatment not covered by her insurance so she was prescribed Cipro 250 mg twice daily along with Flagyl 500 mg twice daily for 7 days; could only tolerate 2 days of the Cipro as she felt it was causing her to have increased vomiting. She was able to tolerate and finish the full seven-day course of Flagyl and was given an addition 10 days which she felt that it did improve her nausea, vomiting, and bloating. Outside hospital records rev'd by Dr. Olivo: [...] to thrive and this was subsequently removed Patient returns to the clinic with her sister continuing to report nausea almost every other day with occasional regurgitation; occasional substernal burning; and left lower quadrant abdominal pain which she feels is always there , worse with eating, dull/cramping in nature, and improves with bowel movements. She reports that she is taking her omeprazole at night. She is taking Percocet 4 times a day. She has never had a bone density scan done. She is eating only one meal a day. She has not started a probiotic. She is going to see dietary on DecemberMarch 03. She has been referred to an outside GI doctor for a colonoscopy because her last colonoscopy revealed multiple polyps start taking 3 times a day and she is due. Glass Smoother would like to stop her rivaroxaban to and start her on Lovenox prior to the procedure and would like to know when she should stop/restart Lovenox. She denies dysphagia, vomiting, melena, hematochezia, and anorexia. She has lost 8 pounds unintentionally in the last 4 months. She also reports unintentional lipsmacking and a severe headache with history of migraines at this time. Review of Systems Constitutional: Positive for activity change, appetite change, chills, diaphoresis, fatigue and unexpected weight change. HENT: Positive for ear pain. Negative for mouth sores and trouble swallowing. Eyes: Negative. Respiratory: Positive for chest tightness and wheezing. Cardiovascular: Negative. Gastrointestinal: Positive for abdominal distention, abdominal pain and rectal pain. Negative for anal bleeding, blood in stool, constipation, diarrhea, nausea and vomiting. Endocrine: Negative. Genitourinary: Negative. Musculoskeletal: Positive for neck pain. Skin: Negative. Allergic/Immunologic: Negative. Neurological: Positive for weakness, light-headedness and headaches. Hematological: Negative. Psychiatric/Behavioral: Positive for decreased concentration and sleep disturbance. All other systems reviewed and are negative. [...] 2 mg by mouth Daily. linaclotide(+) (LINZESS) 290 mcg capsule Take 1 Cap by mouth daily 30 minutes before breakfast. megestrol (MEGACE) 40 mg tablet Take 40 [...] Take 300 mg by mouth twice daily. rivaroxaban (XARELTO) 20 mg tablet Take 20 mg by mouth daily. Take with food. spacer inhalation device (AEROCHAMBER) spcr by SEE ADMIN INSTRUCTIONS route as directed. Indications: PRN topiramate (TOPAMAX) 100 mg tablet Take 1 Tab by mouth Twice Daily. ZOLPIDEM TARTRATE (AMBIEN PO) Take by mouth. Vitals: 02/21/17 1014 BP: 133/85 Pulse: 101 Resp: 18 Weight: 41.5 kg (91 lb 9.6 oz) Height: 158.8 cm (62.5") Body mass index is 16.49 kg/(m^2). Physical Exam Constitutional: She is oriented to person, place, and time. She appears well- developed and well-nourished. HENT: Head: Normocephalic and atraumatic. Eyes: Conjunctivae and EOM are normal. Pupils are equal, round, and reactive to light. Neck: Normal range of motion. Neck supple. No tracheal deviation present. No thyromegaly present. Cardiovascular: Normal rate, regular rhythm and normal heart sounds. Pulmonary/Chest: Effort normal and breath sounds normal. Abdominal: Soft. Normal appearance and bowel sounds are normal. There is tenderness in the left lower quadrant. Musculoskeletal: Normal range of motion. Lymphadenopathy: She has no cervical adenopathy. Neurological: She is alert and oriented to person, place, and time. No cranial nerve deficit. Skin: Skin is warm. Psychiatric: She has a normal mood and affect. Her behavior is normal. Judgment and thought content normal. Assessment and Plan: Sunitha Feldman is a 46 y.o. female prior patient of Dr. Olivo, current patient of Dr. 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 With the presence of unintentional lipsmacking we would like to stop her Reglan. This is the only thing the patient feels helps and she would like to continue with this drug despite being educated on EP/TD with the understanding that extraparametal side effects are not reversible. Instead of continuing with the current dose of 4 times daily we would at least like to decrease Reglan to 3 times a day; 2 doses prior to meals and final dose before bed. I would like to further decrease the amount of Reglan needed to control your symptoms. She was educated on the things that will help further control her gastroparesis include stopping all narcotic pain medication, stopping marijuana use, tight control of blood sugar, and small meals frequently throughout the day. With history of elevated LFTs we would like to check CMP. We will also check a CBC. She has history of vitamin D deficiency therefore we will recheck vitamin D. Her most recent B12 was checked and found to be adequate. TSH/T4 was ordered at last visit it but never obtained. We will obtain that at this time as well. Patient prefers that these be drawn at her local lab where they can "get her blood" requisitions were given to the patient and the results should be faxed to our clinic. Patient is currently taking her omeprazole at night. She reports that her GERD is for the most part controlled but she has recently had breakthrough symptoms. Patient was educated to take omeprazole 30 minutes to 1 hour prior to first meal a day. She is at great risk for poor bone density being a smoker, of slight stature, around the age of menopause, and on chronic PPI. We will print off over requisition for you to get a DEXA/bone density scan. Pt was also instructed to continue taking calcium and vitamin D daily as it is important for bone health. Patient has a very low BMI. She does not eat very much very often. We would like her to keep her appointment on March 03 with dietary and discuss increasing caloric intake and gastroparesis diet with them. Information provided on both gastroparesis and gastroparesis diet. Patient was directed to work with primary care provider to stop smoking. Smoking cessation education will be provided. Extended course of Flagyl seem to significantly help the patient's diarrhea, nausea, bloating. We will keep this in mind for the future. She is previously recommended to start taking a probiotic. She has not started taking a probiotic but recommend she do so. We recommend align which is over-the- counter. We will also call a prescription in for you for VSL #3 so she can compare prices and choose which one she would like to take. Patient feels that the 290 mcg of Linzess given to her at her last appointment was too strong for her and caused her to watch diarrhea. We will write you a prescription for Linzess 145 mcg and send it to [facility] in [place]. Per patient she is due for a colonoscopy because of her history of polyps. We will obtain record of last colonoscopy, the patient and her sister feel this was done in [place] at [facility]. It was stated that we would prefer for colonoscopy to be done here, at , with your current GI provider; as opposed to locally. With history of N/V and GERD would also like to do an EGD at the time of colonoscopy. She is working with her blasting clay miner regarding stopping blood thinners 5 days prior to the procedure and starting Lovenox. We would like for patient to hold Lovenox evening prior to and the day of the procedure. Patient seemed to have very painful headache at time of exam. No unilateral weakness noted and all CN (gag was not checked) intact. Referral to re- establish with neurology was written and patient was instructed to see them as soon as possible regarding her headaches/chronic migraines. Positive Carnett's sign also noted on PE. Print off a requisition for pain management was given to the patient as she may be a candidate for trigger point injection injections. It is likely this abdominal pain is also very strongly related to IBS-C. Improving constipation should also help pain. After discussion with the patient and her sister it was decided to proceed with the following: Reduce Reglan to 5 mg 3 times daily, with first 2 doses before meals and third dose at night Reduce/stop narcotic pain medication Stop use of marijuana Control blood sugar as tightly as possible Small frequent meals throughout the day CMP, CBC, vitamin D, and TSH/T4 Start taking 40 mg of omeprazole 30 minutes to 1 hour prior to first meal the day Bone density scan Continue calcium and vitamin D daily Dietary to help with increasing caloric intake and gastroparesis diet Smoking cessation Daily probiotic (align versus VS L #3) 145 mcg of Linzess daily Colonoscopy for screening EGD Per outside hematology stop taking rivaroxaban 5 days prior to procedure and start Lovenox Do not take Lovenox evening prior to nor day of scopes Referral to neurology Referral to pain management for possible trigger point injections In the future consider retreatment for SIBO, further reduction of Reglan, and continued healthcare maintenance Return to clinic at next available [facility] appointment All questions were answered. I spent [phone] (70 minutes) with the patient in a [id number] manner today, over 50% of the time was spent counseling and coordinating care. Thank you for allowing me to participate in the care of this patient. Please call GI clinic with any questions/concerns. in this encounter Plan of Treatment Date Type Specialty Care Team Description 04/03/2017 Surgery Franklin Nichols MD COLONOSCOPY [address] [place] [address] 04/03/2017 Procedure Pass 04/03/2017 Hospital Franklin Nichols MD Constipation Encounter [address] [place] [address] Name Priority Associated Diagnoses Order Schedule CBC AND DIFF Routine Abdominal pain, Expected: 02/21/2017 unspecified location (Approximate), Expires: 02/21/2018 COMPREHENSIVE METABOLIC PANEL Routine Abdominal pain, Expected: 2016 unspecified location (Approximate), Expires: 02/21/2018 25-OH VITAMIN D (D2 + D3) Routine Abdominal pain, Expected: 02/21/2017 unspecified location (Approximate), Expires: Vitamin D deficiency 02/21/2018 TSH WITH FREE T4 REFLEX Routine Constipation, unspecified Expected: constipation type (Approximate), Expires: Abdominal pain, 02/21/2018 unspecified location Nausea and vomiting, intractability of vomiting not specified, unspecified vomiting type BONE DENSITY SPINE/HIP Routine Asymptomatic menopausal Expected: 2016 state (Approximate), Expires: Cigarette smoker 02/21/2018 Vitamin D deficiency Encounter for monitoring long-term proton pump inhibitor therapy Name Priority Associated Diagnoses Order Schedule AMB REFERRAL FOR ANESTHESIA PAIN Routine Abdominal pain, Ordered: 2016 MANAGEMENT unspecified location AMB REFERRAL TO NEUROLOGY Routine Other type of migraine Ordered: 2016 Nonintractable headache, unspecified chronicity pattern, unspecified headache type as of this encounter Visit Diagnoses Diagnosis Constipation, unspecified constipation type - Primary Abdominal pain, unspecified location Cigarette smoker Tobacco use disorder Vitamin D deficiency Unspecified vitamin D deficiency Encounter for monitoring long-term proton pump inhibitor therapy Encounter for therapeutic drug monitoring Other type of migraine Nonintractable headache, unspecified chronicity pattern, unspecified headache type Nausea and vomiting, intractability of vomiting not specified, unspecified vomiting type Anticoagulant long-term use Long-term (current) use of anticoagulants Asymptomatic menopausal state Asymptomatic postmenopausal status (age-related) (natural) in this encounter
--- OUTSIDE RECORDS SUMMARY | 2017-02-27 15:18 | XMS REPORT | Encounter Summary ---
Author Author [facility] Address Unknown Phone Unavailable Care Team Providers Care Territory Outside Sales Manager Name Role Phone PCP Unavailable Reason for Visit * Reason Comments Other Encounter Details Date Type Department Care Team Description 12/13/2016 Telephone [facility] Ree Boswell ARNP Other Physicians - Internal [address] [facility] Medicine [place] [address] [facility] [place] [address] OFFICE BLDG [phone] [address] [address] Social History Tobacco Use Types Packs/Day Years Used Date Current Every Day Smoker Cigarettes Quit: 01/24/2009 Alcohol Use Drinks/Week oz/Week Comments No 0 Standard 0.0 drinks or equivalent Sex Assigned at Date Recorded Not on file as of this encounter Miscellaneous Notes * Telephone Encounter - Carolina Quezada LPN - 12/16/2016 11:06 AM CDT Outbound call to pt to discuss below. Pt verbalized understanding. No further f/ u needed at this time. * Telephone Encounter - Ree Boswell ARNP - 12/13/2016 10:22 AM CDT Would not recommend repeating the Flagyl now since she is doing better after the recent course. Would recommend she start a probiotic daily such as [employer] or Align daily and monitor. * Telephone Encounter - Carolina Quezada LPN - 12/13/2016 9:42 AM CDT Outbound call returning pt call. Pt reports they have been doing much better since being on flagyl pt reports sx of bloating have gone away and pt is requesting a refill Routing to Ree to approve/deny in this encounter Plan of Treatment Date Type Specialty Care Team Description 04/03/2017 Surgery Franklin Nichols MD COLONOSCOPY [address] [place] [address] 04/03/2017 Procedure Pass 04/03/2017 Hospital Franklin Nichols MD Constipation Encounter [address] [place] [address] as of this encounter Visit Diagnoses Not on filein this encounter
--- OUTSIDE RECORDS SUMMARY | 2017-02-27 15:18 | XMS REPORT | Encounter Summary ---
Author Author [facility] Organization [facility] Address Unknown Phone Unavailable Care Team Providers Care Home Planning Consultant Salesperson Name Role Phone PCP Unavailable Encounter Details Date Type Department Care Team Description 04/03/2017 Hospital G[facility]enstinal Franklin Nichols MD Constipation Encounter Endoscopy [address] [facility] [address] [place], [place] [address] [place] [address] [phone] Social History Tobacco Use Types Packs/Day Years Used Date Current Every Day Smoker Cigarettes Quit: 01/24/2009 Alcohol Use Drinks/Week oz/Week Comments No 0 Standard 0.0 drinks or equivalent Sex Assigned at Date Recorded Not on file as of this encounter Plan of Treatment Date Type Specialty Care Team Description 04/03/2017 Surgery Franklin Nichols MD COLONOSCOPY [address] [place] [address] 04/03/2017 Procedure Pass 04/03/2017 Hospital Franklin Nichols MD Constipation Encounter [address] [place] [address] as of this encounter Visit Diagnoses Diagnosis Constipation Unspecified constipation in this encounter Admitting Diagnoses Diagnosis Abdominal pain Abdominal pain, unspecified site Constipation Unspecified constipation in this encounter
--- OUTSIDE RECORDS SUMMARY | 2017-02-27 15:18 | XMS REPORT | Clinical Summary ---
Author Author [facility] Organization [facility] Address Unknown Phone Unavailable Care Team Providers Care Milk Drier Name Role Phone PCP Unavailable Source Comments Some departments are not documenting in the electronic medical record. If you do not see the information that you expected, contact Release of Information in the Health Information Management department at [phone] for further assistance in locating additional records.[facility] Allergies Active Allergy Reactions Severity Noted Date [...] TARTRATE (AMBIEN Take by mouth. Active PO) MULTIVITAMINS Take by mouth. Active (MULTIVITAMIN PO) CYANOCOBALAMIN (VITAMIN Take by mouth. Active B-12 PO) ERGOCALCIFEROL (VITAMIN D Take 1,000 Units by mouth Active PO) Daily. escitalopram (LEXAPRO) 20 Take 1 Tab by mouth 30 Tab 0 10/03/19 Active mg PO tablet daily. 11 pregabalin (LYRICA) 300 Take 300 mg by mouth Active mg capsule twice daily. metoclopramide (REGLAN) Take 10 mg by mouth [...] 09/25/19 Active (MIRALAX) 17 gram/dose 17 powder TIZANIDINE HCL Take by mouth. Active (TIZANIDINE PO) [id number] Take 1 capsule by mouth 30 capsule 2 02/22/20 Active therm. 112.5 billion cell daily. 17 cap linaclotide(+) (LINZESS) Take 1 capsule by mouth 30 capsule 2 Active 145 mcg cap daily 30 minutes before 17 capsuleIndications: breakfast. Indications: CHRONIC IDIOPATHIC CHRONIC IDIOPATHIC CONSTIPATION CONSTIPATION electrolyte GUT PEG Take as directed for 4000 mL 0 02/22/20 Active (NULYTELY, COLYTE, Split dose colonoscopy 17 GAVILYTE-N) 420 gram oral prep solution ERYTHROMYCIN BASE Use as directed. 02/22/20 Discontin (ERYTHROMYCIN, BULK, 17 ued MISC) morphine SR (AVINZA) 30 Take 30 mg by mouth 02/22/20 Discontin mg capsule Daily. 17 ued megestrol (MEGACE) 40 mg Take 40 mg by mouth 02/22/20 Discontin tablet Daily. 17 ued Morphine 30 mg CSRP Take by mouth Every 12 02/22/20 Discontin Hours. 17 ued estradiol (ESTRACE) 1 mg Take 2 mg by mouth Daily. 02/22/20 Discontin tablet 17 ued cyclobenzaprine Take 10 mg by mouth three 02/22/20 Discontin (FLEXERIL) 10 mg tablet times daily as needed for 17 ued Muscle Cramps. linaclotide(+) (LINZESS) Take 1 Cap by mouth daily 16 Cap 0 11/22/19 02/22/20 Discontin 290 mcg capsule 30 minutes before 17 17 ued breakfast. Active Problems Problem Noted Date Constipation 02/21/2017 Overview: Added automatically from request for surgery [id number] Superior mesenteric artery syndrome (HCC) 03/17/2009 Anemia 03/17/2009 Vitamin D deficiency 03/17/2009 Malnutrition (HCC) 03/17/2009 Weight loss, unintentional 03/06/2009 Abdominal pain 09/17/2008 Migraine 09/17/2008 Depression 09/17/2008 Anxiety 09/17/2008 Suicide attempt 09/17/2008 Asthma 09/17/2008 Chronic pain 09/17/2008 Encounters Date Type Specialty Care Team Description 02/21/2017 Office Visit Gastroenterology Agatha Hopkins Constipation, unspecified HERMELINDA constipation type (Primary Dx);Abdominal pain, unspecified location;Cigarette smoker;Vitamin D deficiency;Encounter for monitoring long-term proton pump inhibitor therapy;Other type of migraine;Nonintractable headache, unspecified chronicity pattern, unspecified headache type;Nausea and vomiting, intractability of vomiting not specified, unspecified vomiting type;Anticoagulant long-term use 02/21/2017 Prep for Case Gastroenterology Agatha Hopkins APRN-NP 12/23/2016 Orders Only Gastroenterology Ree Boswell ARNP Weight loss; Nausea and vomiting, intractability of vomiting not specified, unspecified vomiting type;Elevated LFTs 12/13/2016 Telephone GastroenterRee Hardy ARNP Other from Last 3 Months Immunizations Name Dates [...] Pulse 101 02/21/2017 10:14 AM CDT Temperature 36.8 C (98.3 F) 11/21/2016 1:01 PM CDT Respiratory Rate 18 02/21/2017 10:14 AM CDT Oxygen Saturation 100% 09/24/2016 2:14 PM CDT Inhaled Oxygen - - Concentration Weight 41.5 kg (91 lb 9.6 oz) 02/21/2017 10:14 AM CDT Height 158.8 cm (5' 2.5") 02/21/2017 10:14 AM CDT Body Mass Index 16.49 02/21/2017 10:14 AM CDT Plan of Treatment Date Type Specialty Care Team Description 04/03/2017 Surgery Franklin Nichols MD COLONOSCOPY [address] [place] [address] 04/03/2017 Procedure Pass 04/03/2017 Hospital Franklin Nichols MD Constipation Encounter [address] [place] [address] Health Maintenance Due Date Last Done Comments PHYSICAL (COMPREHENSIVE) 1978 EXAM PERTUSSIS VACCINE 1982 TETANUS VACCINE 1988 CERVICAL CANCER SCREENING 2001 BREAST CANCER SCREENING 2011 INFLUENZA VACCINE 02/23/2017 03/04/2009 Results * CORTISOL-AM (12/16/2016) Component Value Ref Range Cortisol-AM 22.7 Specimen Performing Laboratory Blood OTHER OUTSIDE LAB from Last 3 Months
--- OUTSIDE RECORDS SUMMARY | 2017-02-27 15:18 | XMS REPORT | Encounter Summary ---
Author Author [facility] Organization [facility] Address Unknown Phone Unavailable Care Team Providers Care Incubator Tender Name Role Phone PCP Unavailable Encounter Details Date Type Department Care Team Description 12/23/2016 Orders Only [facility] Ree Boswell ARNP Weight loss;Nausea and Physicians - Internal [address] vomiting, intractability Medicine [place] [address] of vomiting not [address] [place] [address] specified, unspecified OFFICE BLDG [phone] vomiting type;Elevated [address] [place] [address] Social History Tobacco Use Types Packs/Day Years Used Date Current Every Day Smoker Cigarettes Quit: 01/24/2009 Alcohol Use Drinks/Week oz/Week Comments No 0 Standard 0.0 drinks or equivalent Sex Assigned at Date Recorded Not on file as of this encounter Plan of Treatment Date Type Specialty Care Team Description 04/03/2017 Surgery Franklin Nichols MD COLONOSCOPY [address] [place] [address] 04/03/2017 Procedure Pass 04/03/2017 Hospital Franklin Nichols MD Constipation Encounter [address] [place] [address] as of this encounter Results * CORTISOL-AM (12/16/2016) Component Value Ref Range Cortisol-AM 22.7 Specimen Performing Laboratory Blood OTHER OUTSIDE LAB in this encounter Visit Diagnoses Diagnosis Weight loss Loss of weight Nausea and vomiting, intractability of vomiting not specified, unspecified vomiting type Elevated LFTs Other abnormal blood chemistry in this encounter
--- OUTSIDE RECORDS SUMMARY | 2017-02-27 15:18 | XMS REPORT | Encounter Summary ---
Author Author [facility] Organization [facility] Address Unknown Phone Unavailable Care Team Providers Care Produce Laborer Name Role Phone PCP Unavailable Encounter Details Date Type Department Care Team Description 02/21/2017 Prep for Case [facility] Agatha Hopkins, Physicians - Internal SENIOR APPLICATIONS DEVELOPER-TABLEAU REPORT DEVELOPER Medicine [address] [facility] [address] [address] [address] [facility] MED [phone] [place] [address] Social History Tobacco Use Types Packs/Day Years Used Date Current Every Day Smoker Cigarettes Quit: 01/24/2009 Alcohol Use Drinks/Week oz/Week Comments No 0 Standard 0.0 drinks or equivalent Sex Assigned at Date Recorded Not on file as of this encounter Plan of Treatment Date Type Specialty Care Team Description 04/03/2017 Surgery Franklin Nichols MD COLONOSCOPY [address] [place] [address] 04/03/2017 Procedure Pass 04/03/2017 Hospital Franklin Nichols MD Constipation Encounter [address] [place] [address] as of this encounter Visit Diagnoses Not on filein this encounter
--- OUTSIDE RECORDS SUMMARY | 2017-02-27 15:18 | XMS REPORT | Encounter Summary ---
Author Author [facility] Organization [facility] Address Unknown Phone Unavailable Care Team Providers Care Crop Grain Or Livestock Farm Manager Name Role Phone PCP Unavailable Encounter Details Date Type Department Care Team Description 04/03/2017 Surgery Gastrointenstinal Franklin Nichols MD COLONOSCOPY Endoscopy [address] [facility] [address] [place] [address] [place] [address] [phone] Social History Tobacco Use Types Packs/Day Years Used Date Current Every Day Smoker Cigarettes Quit: 01/24/2009 Alcohol Use Drinks/Week oz/Week Comments No 0 Standard 0.0 drinks or equivalent Sex Assigned at Date Recorded Not on file as of this encounter Plan of Treatment Date Type Specialty Care Team Description 04/03/2017 Surgery Franklin Nichols MD COLONOSCOPY [address] [place] [address] 04/03/2017 Procedure Pass 04/03/2017 [facility] Franklin Nichols MD Constipation Encounter [address] [place] [address] as of this encounter Visit Diagnoses Diagnosis Abdominal pain Abdominal pain, unspecified site Constipation Unspecified constipation in this encounter Admitting Diagnoses Diagnosis Abdominal pain Abdominal pain, unspecified site Constipation Unspecified constipation in this encounter
--- OUTSIDE RECORDS SUMMARY | 2017-02-27 15:21 | XMS REPORT ---
Author Author HORACE HIGGINS [facility] Address [address] [place] [address] Care Team Providers Care Calender Wind Up Tender Name Role Phone HORACE HIGGINS Unavailable PROBLEMS Type Condition ICD9-CM Code [id number] Code Onset Dates Condition Status SNOMED Code Problem Type 2 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 Active 54508693 Problem Uncomplicated asthma, unspecified asthma severity J45.909 Active 585350298 Problem correction 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 Z79.4 Active 584866254 Problem Asthma exacerbation J45.901 Active 380628485 Problem Primary insomnia F51.01 Active 1701919 Problem Anorexia R63.0 Active 34544186 Problem Encounter for dental examination Z01.20 Active 599890497 Problem History of colon polyps Z86.010 Active 906685939 Problem Weight loss R63.4 Active 982487471 Problem Depressive disorder, not elsewhere classified 311 Active 15843511 Problem Diabetes E11.9 Active 00701142 Problem Gastroparesis K31.84 Active 693372091 Problem Neuropathy G62.9 Active 476671936 Problem Mixed hyperlipidemia E78.2 Active 818505526 Problem Back pain M54.9 Active 438878801 Problem Type 2 diabetes mellitus without complications E11.9 Active 222448750 ALLERGIES Unknown Allergies SOCIAL HISTORY No smoking Hx information available PLAN OF CARE VITAL SIGNS MEDICATIONS Medication Instructions Dosage Frequency Start Date End Date Duration Status Oxycodone-Acetaminophen 10-325 MG Orally 3 times a day 1 tablet as needed 8h May, Active Oxycodone-Acetaminophen 10-325 MG Orally 3 times a day 1 tablet as needed 8h May, 28 days Active RESULTS No Results PROCEDURES No Known procedures IMMUNIZATIONS No Known Immunizations
--- OUTSIDE RECORDS SUMMARY | 2017-02-27 15:21 | XMS REPORT ---
Author Author AGATA TORO Organization [facility] Address [address] [place] [address] Care Team Providers Care Leaf Stripper Name Role Phone ROSHAN TORONETTE Unavailable PROBLEMS Type Condition ICD9-CM Code [id number] Code Onset Dates Condition Status SNOMED Code Problem Type 2 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 Active 27633513 Problem Uncomplicated asthma, unspecified asthma severity J45.909 Active 268448820 Problem 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 Active 499819785 Problem Asthma exacerbation J45.901 Active 355042385 Problem Primary insomnia F51.01 Active 4027447 Problem Anorexia R63.0 Active 69983918 Problem Encounter for dental examination Z01.20 Active 256055951 Problem History of colon polyps Z86.010 Active 419110158 Problem Weight loss R63.4 Active 809782323 Problem Depressive disorder, not elsewhere classified 311 Active 86308264 Problem Diabetes E11.9 Active 52819244 Problem Gastroparesis K31.84 Active 632584253 Problem Neuropathy G62.9 Active 779154189 Problem Mixed hyperlipidemia E78.2 Active 558857141 Problem Back pain M54.9 Active 443697493 Problem Type 2 diabetes mellitus without complications E11.9 Active 737042655 ALLERGIES No Information SOCIAL HISTORY Never Assessed PLAN OF CARE VITAL SIGNS MEDICATIONS Medication Instructions Dosage Frequency Start Date End Date Duration Status Oxycodone-Acetaminophen 10-325 MG Orally 3 times a day 1 tablet 8h Jun, 28 days Active RESULTS No Results PROCEDURES No Known procedures IMMUNIZATIONS No Known Immunizations MEDICAL (GENERAL) HISTORY Type Description Date Medical History bowel obstruction Medical History umbilical hernia Medical History pulmonary emboli Medical History asthma Medical History depression Medical History anxiety Medical History diabetes type II Surgical History bowel obstruction 2008 Surgical History umblical hernia x 8 Surgical History appendectomy 1987 Surgical History hysterectomy 2006 Surgical History EGD 2016 Hospitalization History Nervous breakdown 2008 Hospitalization History pulmonary emboli and pneumonia 2014 Hospitalization History High blood sugar 2016
--- OUTSIDE RECORDS SUMMARY | 2017-02-27 15:22 | XMS REPORT ---
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 Z79.4 Active 728700929 Problem Type 2 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 Active 84876711 Problem Primary insomnia F51.01 Active 9185189 Problem History of colon polyps Z86.010 Active 935074251 Problem Encounter for dental examination Z01.20 Active 078329208 Problem Uncomplicated asthma, unspecified asthma severity J45.909 Active 957471907 Problem Weight loss R63.4 Active 520348072 Problem Anorexia R63.0 Active 65321263 Problem Back pain M54.9 Active 153639103 Problem Diabetes E11.9 Active 11405395 Problem Depressive disorder, not elsewhere classified 311 Active 89983307 Problem Gastroparesis K31.84 Active 902694214 Problem Neuropathy G62.9 Active 111003037 Problem Mixed hyperlipidemia E78.2 Active 666073827 ALLERGIES Substance Reaction Event Type Date Status Coumadin vomitied blood Drug Allergy May, Active Toradol swells, itch from inside out Drug Allergy May, Active Nsaids (non-steroidal Anti-inflammatory Drug) triggers asthma, can't breathe, swells form inside out. Non Drug Allergy May, Active SOCIAL HISTORY No smoking Hx information available PLAN OF CARE Activity Details Follow Up prn Reason: VITAL SIGNS Height 62 in 2016-06-04 Weight 97.3 lbs 2016-06-04 Temperature 98.2 degrees Fahrenheit 2016-06-04 Heart Rate 118 bpm 2016-06-04 Respiratory Rate 18 2016-06-04 BMI 17.79 kg/m2 2016-06-04 Blood pressure systolic 120 mmHg 2016-06-04 Blood pressure diastolic 81 mmHg 2016-06-04 MEDICATIONS Medication Instructions Dosage Frequency Start Date End Date Duration Status [facility] Pen [place] 31G X 6 MM 1 THREE TIMES A DAY Active Omeprazole 40 TAKE 1 CAPSULE BY MOUTH ONCE DAILY 30 Active Lipitor 40 mg Orally Once a day 1 tablet 24h 30 Active Albuterol Sulfate 90 mcg/actuation Orally 4 times a day inhale 2 puffs by Inhalation route 4 times per day as needed PRN 6h Jul, Active Erythromycin Base Coated 500 MG Active Cyclobenzaprine HCl 10 TAKE 1 TABLET BY MOUTH THREE TIMES DAILY 30 Active Lyrica 200 mg Orally 3 times a day 1 capsule 8h Nov, Active Lantus SoloStar 100 INJECT 30 UNITS SUB-Q EVERY NIGHT AT BEDTIME 50 Active Cymbalta 30 mg Orally Once a day take 1 capsule (30 mg) by oral route once daily 24h Jul, Active Zolpidem Tartrate 10 MG TAKE ONE TABLET BY MOUTH ONCE DAILY 30 Active Humalog KwikPen 100 INJECT 10 UNITS SUB-Q THREE TIMES DAILY BOFORE MEALS 50 Active Ayden Contour Next Test - subcutaneously 3 times a day test blood sugar 8h Mar, Active Comfort Lancets - as directed 8h Mar, Active Vitamin B-12 1,000 mcg 1 Tablet by Oral route 1 time per day Jul, Active Oxycodone-Acetaminophen 10-325 MG Orally 3 times a day 1 tablet as needed 8h May, 28 days Active zolpidem 10 mg take 1 tablet 24h 24 Jan, 2012 Active Amitiza 8 MCG Orally Twice a day 1 capsule with food 12h Active Marinol 5 mg Orally Twice a day 1 capsule before lunch and supper 12h Apr, 14 days Active Lexapro 20 mg take 1 tablet (20 mg) by oral route once daily Jan, Active Xarelto 20 mg 1 Tablet by Oral route 1 time per day Jul, Active Reglan 10 TAKE 1 TABLET BY MOUTH FOUR TIMES DAILY 30 Active RESULTS Name Result Date Reference Range CBC 2016-06-04 WBC 8.9 3.4-10.8 RBC 5.53 3.77-5.28 Hemoglobin 15.3 11.1-15.9 Hematocrit 47.1 34.0-46.6 MCV 85 79-97 MCH 27.7 26.6-33.0 MCHC 32.5 31.5-35.7 RDW 14.2 12.3-15.4 Platelets 332 150-379 Neutrophils 66 Lymphs 27 Monocytes 5 Eos 2 Basos 0 Neutrophils (Absolute) 5.8 1.4-7.0 Lymphs (Absolute) 2.4 0.7-3.1 Monocytes(Absolute) 0.4 0.1-0.9 Eos (Absolute) 0.2 0.0-0.4 Baso (Absolute) 0.0 0.0-0.2 Immature Granulocytes 0 Immature Grans (Abs) 0.0 0.0-0.1 CMP 2016-06-04 Glucose, Serum 259 65-99 BUN 10 6-24 Creatinine, Serum 0.84 0.57-1.00 eGFR If NonAfricn Am 85 >59 eGFR If Africn Am 98 >59 BUN/Creatinine Ratio 12 9-23 Sodium, Serum 139 134-144 Potassium, Serum 4.1 3.5-5.2 Chloride, Serum 95 96-106 Carbon Dioxide, Total 22 18-29 Calcium, Serum 10.1 8.7-10.2 Protein, Total, Serum 7.4 6.0-8.5 Albumin, Serum 4.7 3.5-5.5 Globulin, Total 2.7 1.5-4.5 A/G Ratio 1.7 1.1-2.5 Bilirubin, Total 0.2 0.0-1.2 Alkaline Phosphatase, S 146 39-117 AST (SGOT) 38 0-40 ALT (SGPT) 38 0-32 CT Scan : Abdomen & Pelvis w/ Contrast 2016 PROCEDURES Procedure Date Ordered Related Diagnosis Body Site [facility] Jun 04, 2016 VENIPUNCT, ROUTINE* Jun 04, 2016 Office Visit, Est Pt., Level 3 Jun 04, 2016 FORMERLY [facility] VISIT ESTABLISHED PATIENT Jun 04, 2016 IMMUNIZATIONS No Known Immunizations
[2017-02-27] MEDS ORDERED: ONDANSETRON 4 MG/2 ML (SDV) Z0FRAN ONE (15:23)
[2017-02-27] MEDS ORDERED: NS IV 1000 ML 1,000 ML ONE (15:23)
--- OUTSIDE RECORDS SUMMARY | 2017-02-27 15:24 | XMS REPORT ---
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 Active 363093289 Problem Asthma exacerbation J45.901 Active 874471516 Problem Primary insomnia F51.01 Active 3281684 Problem Anorexia R63.0 Active 40582492 Problem Encounter for dental examination Z01.20 Active 154906053 Problem History of colon polyps Z86.010 Active 932706930 Problem Weight loss R63.4 Active 744216039 Problem Depressive disorder, not elsewhere classified 311 Active 61577534 Problem Diabetes E11.9 Active 85870502 Problem Gastroparesis K31.84 Active 423672601 Problem Neuropathy G62.9 Active 913059183 Problem Mixed hyperlipidemia E78.2 Active 610419840 Problem Back pain M54.9 Active 172197744 Problem Type 2 diabetes mellitus without complications E11.9 Active 818524224 ALLERGIES Unknown Allergies SOCIAL HISTORY No smoking [...]
--- OUTSIDE RECORDS SUMMARY | 2017-02-27 15:24 | XMS REPORT ---
Author Author HORACE HIGGINS [facility] Address [address] [place] [address] Care Team Providers Care Wall And Floor Tiler Name Role Phone HORACE HIGGINS Unavailable PROBLEMS Type Condition ICD9-CM Code [id number] Code Onset Dates Condition Status SNOMED Code Problem Type 2 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 Active 93391198 Problem Uncomplicated asthma, unspecified asthma severity J45.909 Active 206840173 Problem [facility] 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 Z79.4 Active 031279393 Problem Asthma exacerbation J45.901 Active 957770713 Problem Primary insomnia F51.01 Active 4692074 Problem Anorexia R63.0 Active 82275576 Problem Encounter for dental examination Z01.20 Active 373436867 Problem History of colon polyps Z86.010 Active 368778730 Problem Weight loss R63.4 Active 249142868 Problem Depressive disorder, not elsewhere classified 311 Active 19081558 Problem Diabetes E11.9 Active 19362918 Problem Gastroparesis K31.84 Active 253999290 Problem Neuropathy G62.9 Active 975792337 Problem Mixed hyperlipidemia E78.2 Active 939918230 Problem Back pain M54.9 Active 413309613 Problem Type 2 diabetes mellitus without complications E11.9 Active 042578577 ALLERGIES No Information SOCIAL HISTORY Never Assessed PLAN OF CARE VITAL SIGNS MEDICATIONS Unknown Medications RESULTS No Results PROCEDURES No Known procedures IMMUNIZATIONS No Known Immunizations MEDICAL (GENERAL) HISTORY Type Description Date Medical History bowel obstruction Medical History umbilical hernia Medical History pulmonary emboli Medical History asthma Medical History depression Medical History anxiety Medical History diabetes type II Surgical History bowel obstruction 2009 Surgical History umblical hernia x 8 Surgical History appendectomy 1987 Surgical History hysterectomy 2007 Surgical History EGD 2017 Hospitalization History Nervous breakdown 2009 Hospitalization History pulmonary emboli and pneumonia 2014 Hospitalization History High blood sugar 2016
--- OUTSIDE RECORDS SUMMARY | 2017-02-27 15:26 | XMS REPORT ---
Author Author HORACE HIGGINS [facility] Address [address] [place] [address] Care Team Providers Care Nurse Behavioral Health Care Name Role Phone HORACE HIGGINS Unavailable PROBLEMS Type Condition ICD9-CM Code [id number] Code Onset Dates Condition Status SNOMED Code Problem Type 2 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 Active 99945980 Problem Uncomplicated asthma, unspecified asthma severity J45.909 Active 939585454 Problem 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 Active 954191179 Problem Asthma exacerbation J45.901 Active 784552770 Problem Primary insomnia F51.01 Active 5683256 Problem Anorexia R63.0 Active 14906188 Problem Encounter for dental examination Z01.20 Active 144573822 Problem History of colon polyps Z86.010 Active 094859463 Problem Weight loss R63.4 Active 530258195 Problem Depressive disorder, not elsewhere classified 311 Active 36008974 Problem Diabetes E11.9 Active 40822309 Problem Gastroparesis K31.84 Active 534290535 Problem Neuropathy G62.9 Active 584002554 Problem Mixed hyperlipidemia E78.2 Active 166055931 Problem Back pain M54.9 Active 760648270 Problem Type 2 diabetes mellitus without complications E11.9 Active 664168797 ALLERGIES No Information SOCIAL HISTORY Never Assessed PLAN OF CARE VITAL SIGNS MEDICATIONS Medication Instructions Dosage Frequency Start Date End Date Duration Status Lyrica 300 MG Orally 2 times a day 1 capsule 12h 14 Nov, 2015 Active RESULTS No Results PROCEDURES No Known [...] History EGD 2017 Hospitalization History Nervous breakdown 2008 Hospitalization History pulmonary emboli and pneumonia 2014 Hospitalization History High blood sugar 2017
--- OUTSIDE RECORDS SUMMARY | 2017-02-27 15:28 | XMS REPORT ---
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.4 Active 600736201 Problem Asthma exacerbation J45.901 Active 947614379 Problem Primary insomnia F51.01 Active 7234864 Problem Anorexia R63.0 Active 87181110 Problem Encounter for dental examination Z01.20 Active 138201425 Problem History of colon polyps Z86.010 Active 799197402 Problem Weight loss R63.4 Active 676744853 Problem Depressive disorder, not elsewhere classified 311 Active 94559166 Problem Diabetes E11.9 Active 94320220 Problem Gastroparesis K31.84 Active 202770678 Problem Neuropathy G62.9 Active 839987577 Problem Mixed hyperlipidemia E78.2 Active 757568377 Problem Back pain M54.9 Active 375993150 Problem Type 2 diabetes mellitus without complications E11.9 Active 557156905 ALLERGIES Substance Reaction Event Type Date Status Coumadin vomitied blood Drug Allergy Jun, Active Toradol swells, itch from inside out Drug Allergy Jun, Active Nsaids (non-steroidal Anti-inflammatory Drug) triggers asthma, can't breathe, swells form inside out. Non Drug Allergy Jun, Active SOCIAL HISTORY Never Assessed PLAN OF CARE Activity Details Follow Up 1 Year Reason:Recall VITAL SIGNS Heart Rate 111 bpm 2016-06-27 Blood pressure systolic 106 mmHg 2016-06-27 Blood pressure diastolic 74 mmHg 2016-06-27 MEDICATIONS Medication Instructions Dosage Frequency Start Date End Date Duration Status Cymbalta 30 mg Orally Once a day take 1 capsule (30 mg) by oral route once daily 24h Jul, Active Quad Cane - as directed 24h Apr, Active Amitiza 8 MCG Orally Twice a day 1 capsule with food 12h Active Escitalopram Oxalate 20 mg 1 TAB(S) ONCE A DAY ORALLY 90 DAY(S) 90 Active Albuterol Sulfate 90 mcg/actuation Orally 4 times a day inhale 2 puffs by Inhalation route 4 times per day as needed PRN 6h Jul, Active Vitamin B-12 1,000 mcg 1 Tablet by Oral route 1 time per day Jul, Active Omeprazole 40 TAKE 1 CAPSULE BY MOUTH ONCE DAILY 30 Active Lantus SoloStar 100 INJECT 30 UNITS SUB-Q EVERY NIGHT AT BEDTIME 50 Active [facility] Pen [place] 31G X 6 MM 1 THREE TIMES A DAY Active Marinol 5 mg Orally Twice a day 1 capsule before lunch and supper 12h Apr, 14 days Active Ayden Contour Next Test - subcutaneously 3 times a day test blood sugar 8h Mar, Active Comfort Lancets - as directed 8h Mar, Active zolpidem 10 mg take 1 tablet 24h Jan, Active Humalog KwikPen 100 INJECT 10 UNITS SUB-Q THREE TIMES DAILY BOFORE MEALS 50 Active Xarelto 20 mg 1 Tablet by Oral route 1 time per day Jul, Active Oxycodone-Acetaminophen 10-325 MG Orally 3 times a day 1 tablet as needed 8h May, 28 days Active Reglan 10 TAKE 1 TABLET BY MOUTH FOUR TIMES DAILY 30 Active Lyrica 200 mg Orally 3 times a day 1 capsule 8h 14 Nov, 2015 Active Zolpidem Tartrate 10 MG TAKE ONE TABLET BY MOUTH ONCE DAILY 30 Active Erythromycin Base Coated 500 MG Active Ondansetron 4 MG DISSOLVE ONE TABLET UNDER TONGUE EVERY 8 HOURS NEEDED FOR NAUSEA OR VOMITING 10 Active Lipitor 40 mg Orally Once a day 1 tablet 24h 30 Active Lexapro 20 mg take 1 tablet (20 mg) by oral route once daily Jan, Active Cyclobenzaprine HCl 10 TAKE 1 TABLET BY MOUTH THREE TIMES DAILY 30 Active Oxycodone-Acetaminophen 10-325 MG Orally 3 times a day 1 tablet as needed 8h May, Active RESULTS No Results PROCEDURES Procedure Date Ordered Result Body Site PERIODIC ORAL EXAMINATION Jun 27, 2016 INTRAORL-PERIAPICAL 1 FILM [id number] Jun 27, 2016 INTRAORL-PERIAPICAL EA ADD FILM Jun 27, 2016 INTRAORL-PERIAPICAL EA ADD FILM Jun 27, 2016 PROPHYLAXIS - ADULT Jun 27, 2016 BITEWINGS - FOUR FILMS Jun 27, 2016 IMMUNIZATIONS No Known Immunizations MEDICAL (GENERAL) HISTORY [...]
--- NOTE | 2017-02-27 15:35 | ED GI ---
General Chief Complaint: Upper Extremity Stated Complaint: ABD PAIN; N/V/D Source of Information: Patient Exam Limitations: No Limitations History of Present Illness Time Seen By Provider: 15:33 Initial Comments To ER with reports of diffuse abdominal pain, nausea, vomiting, diarrhea and chills. She ran out of her Percocet which she takes 3 times a day yesterday. She's not been taking her insulin because the nausea has prevented her from eating. She is scheduled to refill her Percocet tomorrow. She was here at the end of December for the same complaint Severity/Quality: Moderate, Cramping Location: Generalized Abdomen Radiation: No Radiation Activities at Onset: None Associated Symptoms: Nausea/Vomiting Allergies and Home Medications Allergies Coded Allergies: aspirin (Verified Allergy, Unknown, 10/25/13) Uncoded Allergies: NSAIDS (Allergy, Unknown, 10/25/13) COUMADIN (Adverse Reaction, Unknown, 10/25/13) VOMITS BLOOD Home Medications Acetaminophen 500 Mg Tablet, 1,000 MG PO HS PRN for PAIN-MILD, (Reported) TAKES 2 (500 MG) TABLETS Albuterol Sulfate 8.5 Gm Aer.w.adap, 2 PUFF INH QID PRN for SHORTNESS OF BREATH, (Reported) Atorvastatin Calcium 40 Mg Tablet, 40 MG PO HS, (Reported) Cyanocobalamin 1,000 Mcg Tablet, 1,000 MCG PO DAILY, (Reported) Dronabinol 5 Mg Capsule, 1 CAP PO BID, (Reported) TAKES BEFORE LUNCH AND SUPPER Escitalopram Oxalate 20 Mg Tablet, 20 MG PO HS, (Reported) Insulin Glargine,Hum.rec.anlog 100 Unit/1 Ml Insuln.pen, 10 UNITS SQ HS for 30 Days Prescribed by: NANNETTE SANDOVAL on 01/23/17 1130 Insulin Lispro 100 Unit/1 Ml Insuln.pen, 8 UNITS SQ AC for 30 Days Prescribed by: NANNETTE SANDOVAL on 01/23/17 1130 Metoclopramide HCl 10 Mg Tablet, 10 MG PO QID, (Reported) Multivitamins W-Iron 1 Tab Tablet, 1 TAB PO DAILY, (Reported) Omeprazole 40 Mg Capsule.dr, 40 MG PO DAILY, (Reported) Ondansetron 8 Mg Tab.rapdis, 8 MG SL Q6H PRN for NAUSEA/VOMITING-1ST LINE, ( Reported) Oxycodone HCl/Acetaminophen 1 Each Tablet, 1 TAB PO QID PRN for PAIN-MODERATE, ( Reported) Polyethylene Glycol 3350 255 Gm Powder, 17 GM PO DAILY PRN for CONSTIPATION-2ND LINE, (Reported) Pregabalin 300 Mg Capsule, 300 MG PO BID, (Reported) Rivaroxaban 20 Mg Tablet, 20 MG PO HS, (Reported) Sucralfate 1 Gm Tablet, 1 GM PO BID PRN for STOMACH UPSET, (Reported) Tizanidine HCl 4 Mg Tablet, 4 MG PO BID PRN for pain/muscle spasm, #60 Ref 0 Prescribed by: NANNETTE SANDOVAL on 01/23/17 1130 Review of Systems Constitutional: see HPI, chills EENTM: No Symptoms Reported Respiratory: No Symptoms Reported Cardiovascular: No Symptoms Reported Gastrointestinal: See HPI, Abdominal Pain, Diarrhea, Nausea, Vomiting Genitourinary: No Symptoms Reported Musculoskeletal: no symptoms reported Skin: no symptoms reported Psychiatric/Neurological: No Symptoms Reported Endocrine: No Symptoms Reported Hematologic/Lymphatic: No Symptoms Reported Past Dmjgmjx-Wrbpvi-Dfezwa Hx Patient Social History Type Used: Cigarettes Recent Foreign Travel: No Contact w/Someone Who Travel: No Recent Hopitalizations: No Immunizations Up To Date Tetanus Booster (TDap): Less than 5yrs PED Vaccines UTD: Yes Date of Pneumonia Vaccine: Jul 07, 2014 Date of Influenza Vaccine: Feb 23, 2015 Seasonal Allergies Seasonal Allergies: No Surgeries History of Surgeries: Yes (HERNIA, thoracentesis) Surgeries: Abdominal, Appendectomy, Hysterectomy Respiratory History of Respiratory Disorde: No Respiratory Disorders: Asthma, Pulmonary Embolism Cardiovascular History of Cardiac Disorders: No Neurological History of Neurological Disord: No Neurological Disorders: Neuropathy 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 System Hx 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 Disorders: No 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 Genitourinary History of Genitourinary Disor: No Gastrointestinal History of Gastrointestinal Di: No Gastrointestinal Disorders: Gastroesophageal Reflux, Irritable Bowel Musculoskeletal History of Musculoskeletal Dis: No Musculoskeletal Disorders: Chronic Back Pain Endocrine History of Endocrine Disorders: Yes Endocrine Disorders: Diabetes, Insulin dep HEENT History of HEENT Disorders: Yes Hearing Impairment: Bilateral Hearing Aide Cancer History of Cancer: Yes Cancer: Ovarian Did You Recieve Any Treatments: Yes Type of Tx Receive: Surgical Intervention Psychosocial History of Psychiatric Problem: Yes Behavioral Health Disorders: Depression Integumentary History of Skin or Integumenta: No Blood Transfusions History of Blood Disorders: No Adverse Reaction to a Blood Tr: No Family Medical History Significant Family History: Heart Disease, Diabetes, Hypertension Family Medial History: Cardiovascular disease 19 MOTHER (CHF) G8 SISTER (CHF) Cataracts 19 MOTHER Diabetes mellitus 19 MOTHER G8 BROTHER G8 BROTHER G8 SISTER Hypertension 19 MOTHER G8 SISTER Physical Exam Vital Signs VS - Last 72 Hours, by Label 02/27/17 15:15 Temp 97.8 Pulse 100 Resp 20 B/P (MAP) 134/97 Pulse Ox 99 Capillary Refill : General Appearance: WD/WN, no apparent distress, thin HEENT: PERRL/EOMI, normal ENT inspection Neck: non-tender, full range of motion Respiratory: normal breath sounds, no respiratory distress, no accessory muscle use Cardiovascular: regular rate, rhythm, no murmur Gastrointestinal: normal bowel sounds, soft, tenderness Extremities: normal range of motion, non-tender Neurologic/Psychiatric: alert, normal mood/affect, oriented x 3 Skin: normal color, warm/dry Progress/Results/Core Measures Results/Orders Lab Results Laboratory Tests Test 02/27/17 15:25 02/27/17 16:40 Range/Units White Blood Count 9.3 4.3-11.0 10^3/uL Red Blood Count 5.06 4.35-5.85 10^6/uL Hemoglobin 13.7 11.5-16.0 G/DL Hematocrit 42 35-52 % Mean Corpuscular Volume 82 80-99 FL Mean Corpuscular Hemoglobin 27 25-34 PG Mean Corpuscular Hemoglobin Concent 33 32-36 G/DL Red Cell Distribution Width 14.4 10.0-14.5 % Platelet Count 362 130-400 10^3/uL Mean Platelet Volume 11.1 H 7.4-10.4 FL Neutrophils (%) (Auto) 56 42-75 % Lymphocytes (%) (Auto) 36 12-44 % Monocytes (%) (Auto) 7 0-12 % Eosinophils (%) (Auto) 1 0-10 % Basophils (%) (Auto) 0 0-10 % Neutrophils # (Auto) 5.2 1.8-7.8 X 10^3 Lymphocytes # (Auto) 3.4 1.0-4.0 X 10^3 Monocytes # (Auto) 0.6 0.0-1.0 X 10^3 Eosinophils # (Auto) 0.1 0.0-0.3 10^3/uL Basophils # (Auto) 0.0 0.0-0.1 10^3/uL Sodium Level 141 135-145 MMOL/L Potassium Level 3.6 3.6-5.0 MMOL/L Chloride Level 108 H 98-107 MMOL/L Carbon Dioxide Level 20 L 21-32 MMOL/L Anion Gap 13 5-14 MMOL/L Blood Urea Nitrogen 8 7-18 MG/DL Creatinine 0.76 0.60-1.30 MG/DL Estimat Glomerular Filtration Rate > 60 BUN/Creatinine Ratio 11 Glucose Level 202 H 70-105 MG/DL Calcium Level 10.0 8.5-10.1 MG/DL Total Bilirubin 0.5 0.1-1.0 MG/DL Aspartate Amino Transf (AST/SGOT) 17 5-34 U/L Alanine Aminotransferase (ALT/SGPT) 17 0-55 U/L Alkaline Phosphatase 121 40-136 U/L Total Protein 7.6 6.4-8.2 GM/DL Albumin 3.9 3.2-4.5 GM/DL Lipase 22 8-78 U/L Urine Color YELLOW Urine Clarity CLEAR Urine pH 8 5-9 Urine Specific Elliott 1.010 L 1.016-1.022 Urine Protein 2+ H NEGATIVE Urine Glucose (UA) NEGATIVE NEGATIVE Urine Ketones 1+ H NEGATIVE Urine Nitrite NEGATIVE NEGATIVE Urine Bilirubin NEGATIVE NEGATIVE Urine Urobilinogen NORMAL NORMAL MG/DL Urine Leukocyte Esterase NEGATIVE NEGATIVE Urine RBC (Auto) NEGATIVE NEGATIVE Urine RBC NONE /HPF Urine WBC NONE /HPF Urine Squamous Epithelial Cells 0-2 /HPF Urine Crystals NONE /LPF Urine Bacteria NONE /HPF Urine Casts NONE /LPF Urine Mucus NEGATIVE /LPF Urine Culture Indicated NO My Orders Orders - REGINA DELONG APRN Cbc With Automated Diff (02/27/17 15:32) Comprehensive Metabolic Panel (02/27/17 15:32) Lipase (02/27/17 15:32) Ua Culture If Indicated (02/27/17 15:32) Drug Screen Stat (Urine) (02/27/17 15:32) Saline Lock/Iv-Start (02/27/17 15:32) Ns Iv 1000 Ml (Sodium Chloride 0.9%) (02/27/17 15:45) Ondansetron Injection (Zofran Injectio (02/27/17 15:45) Promethazine Injection (Phenergan Injec (02/27/17 15:45) Accucheck Stat ONCE (02/27/17 15:32) Morphine Injection (Morphine Injection (02/27/17 16:30) Oxycodone/Acet 10/325mg Tablet (Percocet (02/27/17 16:30) Oxycodone/Acet 10/325mg Tablet (Percocet (02/27/17 16:45) Medications Given in ED Current Medications Medications Dose Ordered Sig/Jenifer Route Start Time Stop Time Status Last Admin Dose Admin Ondansetron HCl 4 mg ONCE ONCE IVP 02/27/17 15:45 02/27/17 15:46 DC 02/27/17 15:40 4 MG Oxycodone/ Acetaminophen 1 tab ONCE ONCE PO 02/27/17 16:30 02/27/17 16:31 DC 02/27/17 16:47 1 TAB Vital Signs/I&O Vital Sign - Last 12Hours 02/27/17 15:15 Temp 97.8 Pulse 100 Resp 20 B/P (MAP) 134/97 Pulse Ox 99 Intake and Output 02/28/17 00:00 Intake Total 1000 ml Balance 1000 ml Departure Impression Impression: Primary Impression: Opiate withdrawal Additional Impression: Nausea and vomiting Disposition: 01 HOME, SELF-CARE Condition: Improved Departure-Patient Inst. Decision time for Depature: 16:57 Referrals: HORACE HIGGINS MD (PCP/Family) Primary Care Physician Patient Instructions: Opioid Pain Medicines Add. Discharge Instructions: All discharge instructions reviewed with patient and/or family. Voiced understanding. REGINA DELONG APRN Feb 27, 2017 15:35
[2017-02-27 15:37] LABS: BASOPHILS % (AUTO) 0 % (0-10); EOSINOPHILS # (AUTO) 0.1 10^3/uL (0.0-0.3); EOSINOPHILS % (AUTO) 1 % (0-10); LYMPHOCYTES # (AUTO) 3.4 X 10^3 (1.0-4.0); LYMPHOCYTES % (AUTO) 36 % (12-44); MEAN CORPUSCULAR HEMOGLOBIN 27 PG (25-34); MEAN CORPUSCULAR HGB CONC 33 G/DL (32-36); MEAN CORPUSCULAR VOLUME 82 FL (80-99); MEAN PLATELET VOLUME 11.1 FL (7.4-10.4); MONOCYTES # (AUTO) 0.6 X 10^3 (0.0-1.0); MONOCYTES % (AUTO) 7 % (0-12); NEUTROPHILS # (AUTO) 5.2 X 10^3 (1.8-7.8); NEUTROPHILS % (AUTO) 56 % (42-75); PLATELET COUNT 362 10^3/uL (130-400); RED BLOOD COUNT 5.06 10^6/uL (4.35-5.85); RED CELL DISTRIBUTION WIDTH 14.4 % (10.0-14.5); WHITE BLOOD COUNT 9.3 10^3/uL (4.3-11.0)
[2017-02-27] MEDS ORDERED: NS IV 1000 ML 1,000 ML IV SCH (15:45)
[2017-02-27] MEDS ORDERED: PROMETHAZINE INJ 25 MG/ML (PHENERGAN) AMP IVP ONE (15:45)
[2017-02-27] MEDS ORDERED: ONDANSETRON 4 MG/2 ML (SDV) Z0FRAN IVP ONE (15:45)
[2017-02-27 15:50] LABS: ALANINE AMINOTRANSFERASE 17 U/L (0-55); ALBUMIN 3.9 GM/DL (3.2-4.5); ANION GAP 13 MMOL/L (5-14); ASPARTATE AMINO TRANSFERASE 17 U/L (5-34); BILIRUBIN,TOTAL 0.5 MG/DL (0.1-1.0); BLOOD UREA NITROGEN 8 MG/DL (7-18); BUN/CREATININE RATIO 11; CARBON DIOXIDE 20 MMOL/L (21-32); CHLORIDE 108 MMOL/L (98-107); CREATININE SERUM 0.76 MG/DL (0.60-1.30); GFR ESTIMATED > 60; GLUCOSE 202 MG/DL (70-105); LIPASE 22 U/L (8-78); POTASSIUM 3.6 MMOL/L (3.6-5.0); SODIUM 141 MMOL/L (135-145); TOTAL PROTEIN 7.6 GM/DL (6.4-8.2)
[2017-02-27] MEDS ORDERED: oxyCODONE/APAP 10/325MG (PERCOCET 10) TABLET PO ONE ×2 (16:30→16:45)
[2017-02-27] MEDS ORDERED: morphine INJ 10 MG/ML 1ML (SYR OR VIAL) IVP ONE (16:30)
[2017-02-27 16:51] LABS: BILIRUBIN,URINE NEGATIVE (NEGATIVE); KETONES,URINE 1+ (NEGATIVE); LEUKOCYTE ESTERASE ,URINE NEGATIVE (NEGATIVE); NITRITE,URINE NEGATIVE (NEGATIVE); PH,URINE 8 (5-9); PROTEIN,URINE 2+ (NEGATIVE); UROBILINOGEN,URINE NORMAL (NORMAL)
[2017-02-27 16:57] LABS: SQUAMOUS EPITHELIAL CELL,UR 0-2 /HPF
[2017-02-27 17:10] VITALS: BP 122/74
== END 2017-02-27 17:10 | disposition home or self-care (01) ==
LOC: EDUNIT# 15:11 → ER 15:13
DX: F11.23 Opioid dependence with withdrawal (principal); R11.2 Nausea with vomiting, unspecified; E11.40 Type 2 diabetes mellitus with diabetic neuropathy, unspecified; J45.909 Unspecified asthma, uncomplicated; K21.9 Gastro-esophageal reflux disease without esophagitis; F32.9 Major depressive disorder, single episode, unspecified; Z90.710 Acquired absence of both cervix and uterus; Z86.711 Personal history of pulmonary embolism; Z96.22 Myringotomy tube(s) status; Z82.49 Family history of ischemic heart disease and other diseases of the circulatory system
CPT/HCPCS: 36415; 80053; 80306; 81000; 82962; 83690; 85025; 96361; 96374

== ENCOUNTER 2017-03-04 22:13 | Inpatient (IN) | payer MEDICARE, MEDICAID ==
[~2017-03-04] VITALS: Ht 157.5 cm; Wt 37.7 kg
--- OUTSIDE RECORDS SUMMARY | 2017-03-04 22:19 | XMS REPORT | Continuity of Care Document ---
Author Author [employer] [facility] Address Unknown Phone Unavailable Care Team Providers Care Sustainable Communities Designer Name Role Phone [employer] Unavailable Unavailable Problems Medications Allergies, Adverse Reactions, Alerts Immunizations Results Vital Signs Encounters Location Location Details Encounter Type Encounter Number Reason For Visit Attending Provider ADM Date DC Date Status Source OUTPATIENT [id number] CEM OCHOA 11/21/2016 11/21/2016 Active [facility] Marcello ELLIOTT 02/21/2017 02/21/2017 Active [facility] Procedures Plan of Care Social History Assessment and Plan Family History Value Date Source Advance Directives Order Name Results Value Date Source
--- OUTSIDE RECORDS SUMMARY | 2017-03-04 22:20 | XMS REPORT | Encounter Summary ---
Author Author [facility] Organization [facility] Address Unknown Phone Unavailable Care Team Providers Care Dental Detail Representative Name Role Phone PCP Unavailable Encounter Details Date Type Department Care Team Description 02/21/2017 Prep for Case [facility] Agatha Hopkins, Physicians - Internal FLATBED TRUCK DRIVER-AIRPLANE PATROLLER Medicine [address] [facility] [address] [place] [address] [address] [facility] MED [phone] [place] [address] Social History Tobacco Use Types Packs/Day Years Used Date Current Every Day Smoker Cigarettes Quit: 01/24/2009 Alcohol Use Drinks/Week oz/Week Comments No 0 Standard 0.0 drinks or equivalent Sex Assigned at Date Recorded Not on file as of this encounter Plan of Treatment Date Type Specialty Care Team Description 04/03/2017 Surgery Franklin Nichols MD COLONOSCOPY [address] [place] [address] 04/03/2017 Procedure Pass 04/03/2017 Hospital Farnklin Nichols MD Constipation Encounter [address] [place] [address] as of this encounter Visit Diagnoses Not on filein this encounter
--- OUTSIDE RECORDS SUMMARY | 2017-03-04 22:20 | XMS REPORT | Encounter Summary ---
Author Author [facility] Organization [facility] Address Unknown Phone Unavailable Care Team Providers Care Manager Data Center Name Role Phone PCP Unavailable Encounter Details Date Type Department Care Team Description 04/03/2017 Procedure Pass Gastrointenstinal Endoscopy [address] [place] [address] Social History Tobacco Use Types Packs/Day Years Used Date Current Every Day Smoker Cigarettes Quit: 01/24/2009 Alcohol Use Drinks/Week oz/Week Comments No 0 Standard 0.0 drinks or equivalent Sex Assigned at Date Recorded Not on file as of this encounter Plan of Treatment Date Type Specialty Care Team Description 04/03/2017 Surgery Franklin Nichols MD COLONOSCOPY [address] [place] [address] 04/03/2017 Procedure Pass 04/03/2017 Hospital Franklin Nichols MD Constipation Encounter [address] [place] [address] as of this encounter Visit Diagnoses Not on filein this encounter
--- OUTSIDE RECORDS SUMMARY | 2017-03-04 22:20 | XMS REPORT | Encounter Summary ---
Author Author [facility] Organization [facility] Address Unknown Phone Unavailable Care Team Providers Care Chief Scientific Officer Name Role Phone PCP Unavailable Encounter Details Date Type Department Care Team Description 12/23/2016 Orders Only [facility] Ree Boswell ARNP Weight loss;Nausea and Physicians - Internal [address] vomiting, intractability Medicine [place] 1023 of vomiting not [address] [place] [address] specified, unspecified OFFICE BLDG [phone] vomiting type;Elevated 2ND [place] [address] Social History Tobacco Use Types Packs/Day Years Used Date Current Every Day Smoker Cigarettes Quit: 01/24/2009 Alcohol Use Drinks/Week oz/Week Comments No 0 Standard 0.0 drinks or equivalent Sex Assigned at Date Recorded Not on file as of this encounter Plan of Treatment Date Type Specialty Care Team Description 04/03/2017 Surgery Franklin Nichols MD COLONOSCOPY [address] [place] [address] 04/03/2017 Procedure Pass 04/03/2017 Hospital Franklin Nichols MD Constipation Encounter [address] [place] [address] as of this encounter Results * CORTISOL-AM (12/16/2016) Component Value Ref Range Cortisol-AM 22.7 Specimen Performing Laboratory Blood OTHER OUTSIDE LAB in this encounter Visit Diagnoses Diagnosis Weight loss Loss of weight Nausea and vomiting, intractability of vomiting not specified, unspecified vomiting type Elevated LFTs Other abnormal blood chemistry in this encounter
--- OUTSIDE RECORDS SUMMARY | 2017-03-04 22:20 | XMS REPORT | Clinical Summary ---
Author Author [facility] Organization [facility] Address Unknown Phone Unavailable Care Team Providers Care Helper Electrical Name Role Phone PCP Unavailable Source Comments Some departments are not documenting in the electronic medical record. If you do not see the information that you expected, contact Release of Information in the Health Information Management department at [phone] for further assistance in locating additional records.[facility] Allergies Active Allergy Reactions Severity Noted [...] HCL Take by mouth. Active (TIZANIDINE PO) Nnhektgl1-Exsbky2-Xftvt Take 1 capsule by mouth 30 capsule [...] Overview: Added automatically from request for surgery [id number] Superior mesenteric artery syndrome (HCC) 03/17/2009 Anemia [...] 04/03/2017 Surgery Franklin Nichols MD COLONOSCOPY [address] [place] [address] 04/03/2017 Procedure Pass 04/03/2017 Hospital Franklin Nichols MD Constipation Encounter [address] [place] [address] Health Maintenance Due Date Last Done Comments PHYSICAL (COMPREHENSIVE) 1978 EXAM PERTUSSIS VACCINE 1982 TETANUS VACCINE 1988 CERVICAL CANCER SCREENING 2001 BREAST CANCER SCREENING 2011 INFLUENZA VACCINE 02/23/2017 03/04/2009 Results * CORTISOL-AM (12/16/2016) Component Value Ref Range Cortisol-AM 22.7 Specimen Performing Laboratory Blood OTHER OUTSIDE LAB from Last 3 Months
--- OUTSIDE RECORDS SUMMARY | 2017-03-04 22:20 | XMS REPORT | Encounter Summary ---
Author Author [facility] Organization [facility] Address Unknown Phone Unavailable Care Team Providers Care Surfboard Designer Name Role Phone PCP Unavailable Reason for Visit * Reason Comments Other Encounter Details Date Type Department Care Team Description 12/13/2016 Telephone [facility] Ree Boswell ARNP Other Physicians - Internal [address] [facility] Medicine [place] [address] [facility] [place] [address] OFFICE BLDG [phone] [place] [address] Social History Tobacco Use Types [...] she start a probiotic daily such as LonoCloud or Align daily and monitor. * Telephone [...] 04/03/2017 Surgery Franklin Nichols MD COLONOSCOPY [address] [place] [address] 04/03/2017 Procedure Pass 04/03/2017 Hospital Franklin Nichols MD Constipation Encounter [address] [place] [address] as of this encounter Visit Diagnoses Not on filein this encounter
--- OUTSIDE RECORDS SUMMARY | 2017-03-04 22:20 | XMS REPORT | Encounter Summary ---
Author Author [facility] Organization [facility] Address Unknown Phone Unavailable Care Team Providers Care Cd Reactor Operator Name Role Phone PCP Unavailable Encounter Details Date Type Department Care Team Description 04/03/2017 Surgery Gastrointenstinal Franklin Nichols MD COLONOSCOPY Endoscopy [address] [facility] [address] [place] [address] [place] [address] [phone] Social History Tobacco Use Types Packs/Day Years Used Date Current Every Day Smoker Cigarettes Quit: 01/24/2009 Alcohol Use Drinks/Week oz/Week Comments No 0 Standard 0.0 drinks or equivalent Sex Assigned at Date Recorded Not on file as of this encounter Plan of Treatment Date Type Specialty Care Team Description 04/03/2017 Surgery Franklin Nichols MD COLONOSCOPY [address] [place] [address] 04/03/2017 Procedure Pass 04/03/2017 [facility] Franklin Nichols MD Constipation Encounter [address] [place] [address] as of this encounter Visit Diagnoses Diagnosis Abdominal pain Abdominal pain, unspecified site Constipation Unspecified constipation in this encounter Admitting Diagnoses Diagnosis Abdominal pain Abdominal pain, unspecified site Constipation Unspecified constipation in this encounter
--- OUTSIDE RECORDS SUMMARY | 2017-03-04 22:20 | XMS REPORT | Encounter Summary ---
Author Author [facility] Organization [facility] Address Unknown Phone Unavailable Care Team Providers Care Scouring Pads Supervisor Name Role Phone PCP Unavailable Reason for Referral * Consult, Test & Treat Status Reason Specialty Diagnoses / Referred By Referred To Procedures Contact Contact New Request Specialty Neurology Diagnoses Kellie, Services Other type of Agatha, NEWS DIRECTOR-BUSINESS SYSTEMS DEVELOPER Required migraine [address] headache, [place] [address] chronicity Phone: pattern, unspecified Fax: headache type [phone] * Radiology Services Status Reason Specialty Diagnoses / Referred By Referred To Procedures Contact Contact New Request Radiology Diagnoses Kellie, Asymptomatic Agatha, NEWS DIRECTOR-BUSINESS SYSTEMS DEVELOPER menopausal state [address] [place] deficiency [address] Encounter for Phone: monitoring [phone] long-term proton Fax: pump inhibitor [phone] therapy P rocedures BONE DENSITY SPINE/HIP * Consult, Test & Treat Status Reason Specialty Diagnoses / Referred By Referred To Procedures Contact Contact New Request Specialty Anesthesia Pain Diagnoses Kellie, Services Abdominal pain, Agatha, NEWS DIRECTOR-BUSINESS SYSTEMS DEVELOPER Required unspecified [address] [place] [address] Reason for Visit * Reason Comments Gastroparesis Constipation Encounter Details Date Type Department Care Team Description 02/21/2017 Office Visit [facility] KellieAgatha, Constipation, unspecified Physicians - Internal NEWS DIRECTOR-BUSINESS SYSTEMS DEVELOPER constipation type Medicine [address] (Primary Dx);Abdominal [address] [address] pain, unspecified [address] [phone] location;Cigarette OFFICE [facility] smoker;Vitamin D [place], [place] deficiency;[place] [phone] monitoring long-term [phone] proton pump inhibitor therapy;Other type of migraine;Nonintractable [...] mcg and send it to [facility] in [place]. We would like you to take your omeprazole 30 minutes to 1 hour prior to first meal a day Start taking a probiotic. We recommend align which is [id number]. We will call a prescription in for [...] I understand you are working with her supervisor cloth winding regarding your blood thinners prior to the [...] quit within a month, and do it. [place] to your quit plan Talk to your [...] Track your triggers What gives you that O-olwc-w-cigarette feeling? List all the situations that make [...] wants to stop smoking. Date Last Reviewed: 11/24/201519990988-0371 [employer] [address] [facility], [place] [address]. All rights reserved. This information is not [...] by your healthcare provider Date Last Reviewed: 05/21/201519992910-6916 [employer]. [address] [place] [address], [place] [address]. All rights reserved. This information is not [...] that are mashed or put through a dye blender. In addition , you may need to [...] will likely be needed. Date Last Reviewed: [facility], [address] [place] [address], [place] [address]. All rights reserved. This information is not [...] times a day and she is due. 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 Per patient she is due for a colonoscopy because of her history of polyps. We will obtain record of last colonoscopy, the patient and her sister feel this was done in [place] at [facility]. It was stated that we would prefer for colonoscopy to be done here, at , with your current GI provider; as opposed to locally. With history of N/V and GERD would also like to do an EGD at the time of colonoscopy. She is working with her supervisor cloth winding regarding stopping blood thinners 5 days prior [...] maintenance Return to clinic at next available [facility] appointment All questions were answered. I spent [phone] (70 minutes) with the patient in a [id number] manner today, over 50% of the time was spent counseling and coordinating care. Thank you for allowing me to participate in the care of this patient. Please call GI clinic with any questions/concerns. in this encounter Plan of Treatment Date Type Specialty Care Team Description 04/03/2017 Surgery Franklin Nichols MD COLONOSCOPY [address] [place] [address] 04/03/2017 Procedure Pass 04/03/2017 Hospital Franklin Nichols MD Constipation Encounter [address] [place] [address] Name Priority Associated Diagnoses Order Schedule CBC [...]
--- OUTSIDE RECORDS SUMMARY | 2017-03-04 22:20 | XMS REPORT | Encounter Summary ---
Author Author [facility] Organization [facility] Address Unknown Phone Unavailable Care Team Providers Care Captain Fishing Vessel Name Role Phone PCP Unavailable Encounter Details Date Type Department Care Team Description 04/03/2017 Hospital Gastrointenstinal Franklin Nichols MD Constipation Encounter Endoscopy [address] [facility] [address] [place], [place] [address] [place] [address] [phone] Social History Tobacco Use Types Packs/Day Years Used Date Current Every Day Smoker Cigarettes Quit: 01/24/2009 Alcohol Use Drinks/Week oz/Week Comments No 0 Standard 0.0 drinks or equivalent Sex Assigned at Date Recorded Not on file as of this encounter Plan of Treatment Date Type Specialty Care Team Description 04/03/2017 Surgery Franklin Nichols MD COLONOSCOPY [address] [place] [address] 04/03/2017 Procedure Pass 04/03/2017 Hospital Franklin Nichols MD Constipation Encounter [address] [place] [address] as of this encounter Visit Diagnoses Diagnosis Constipation Unspecified constipation in this encounter Admitting Diagnoses Diagnosis Abdominal pain Abdominal pain, unspecified site Constipation Unspecified constipation in this encounter
[2017-03-04] MEDS ORDERED: ALBU90AE (22:32)
[2017-03-04] MEDS ORDERED: LINA145C PO (22:32)
[2017-03-04] MEDS ORDERED: PROM25TA14 PO (22:32)
[2017-03-04] MEDS ORDERED: VARE1TAB21 (22:32)
[2017-03-04] MEDS ORDERED: DULO30CA48 PO (22:32)
[2017-03-04] MEDS ORDERED: NS IV 1000 ML 1,000 ML IV ONE (23:17)
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
[2017-03-04] MEDS ORDERED: ONDANSETRON 4 MG/2 ML (SDV) Z0FRAN IVP PRN (23:30)
[2017-03-04 23:37] LABS: ABG BASE EXCESS -15.1 MMOL/L (-2.5-2.5); ABG OXYGEN SATURATION 97 % (94-100); ABG PCO2 21 MMHG (35-45); ABG PO2 96 MMHG (79-93)
[2017-03-04 23:39] LABS: ABG HCO3 10 MMOL/L (23-27); ALLENS TEST YES-POS; PATIENT TEMP 96.2
[2017-03-04 23:50] LABS: BASOPHILS % (AUTO) 0 % (0-10); EOSINOPHILS % (AUTO) 0 % (0-10); LYMPHOCYTES # (AUTO) 2.1 X 10^3 (1.0-4.0); LYMPHOCYTES % (AUTO) 21 % (12-44); MEAN CORPUSCULAR HEMOGLOBIN 27 PG (25-34); MEAN CORPUSCULAR HGB CONC 32 G/DL (32-36); MEAN CORPUSCULAR VOLUME 84 FL (80-99); MEAN PLATELET VOLUME 11.2 FL (7.4-10.4); MONOCYTES # (AUTO) 0.8 X 10^3 (0.0-1.0); MONOCYTES % (AUTO) 8 % (0-12); NEUTROPHILS # (AUTO) 7.1 X 10^3 (1.8-7.8); NEUTROPHILS % (AUTO) 71 % (42-75); PLATELET COUNT 413 10^3/uL (130-400); RED BLOOD COUNT 5.77 10^6/uL (4.35-5.85); RED CELL DISTRIBUTION WIDTH 14.9 % (10.0-14.5)
[2017-03-05] VITALS (23 sets, daily range): BP systolic 81–135; BP diastolic 45–92
[2017-03-05 00:07] LABS: ALBUMIN 4.9 GM/DL (3.2-4.5); BILIRUBIN,TOTAL 0.5 MG/DL (0.1-1.0); CALCIUM 11.3 MG/DL (8.5-10.1); CREATININE SERUM 1.51 MG/DL (0.60-1.30); POTASSIUM 4.8 MMOL/L (3.6-5.0); TOTAL PROTEIN 9.9 GM/DL (6.4-8.2)
[2017-03-05 00:38] LABS: INR 1.1 (0.8-1.4); PROTHROMBIN TIME PATIENT 14.1 SEC (12.2-14.7)
[2017-03-05] MEDS ORDERED: NS IV 1000 ML 1,000 ML IV ONE (00:46)
[2017-03-05 01:10] LABS: BILIRUBIN,URINE NEGATIVE (NEGATIVE); KETONES,URINE 4+ (NEGATIVE); LEUKOCYTE ESTERASE ,URINE 1+ (NEGATIVE); NITRITE,URINE NEGATIVE (NEGATIVE); PH,URINE 6 (5-9); PROTEIN,URINE 4+ (NEGATIVE); UROBILINOGEN,URINE NORMAL (NORMAL)
[2017-03-05 01:18] LABS: WBC,URINE RARE /HPF
[2017-03-05] MEDS ORDERED: fentaNYL INJECTION 100 MCG/2 ML AMP IVP ONE (02:00)
--- OUTSIDE RECORDS SUMMARY | 2017-03-05 02:09 | XMS REPORT | Continuity of Care Document ---
Author Author [employer] Organization [facility] Address Unknown Phone Unavailable Care Team Providers Care Pot Fireman Name Role Phone [employer] Unavailable Unavailable Problems Medications Allergies, Adverse Reactions, Alerts Immunizations Results Vital Signs Encounters Location Location Details Encounter Type Encounter Number Reason For Visit Attending Provider ADM Date DC Date Status Source OUTPATIENT [id number] [facility]A 11/21/2016 11/21/2016 Active [facility] Marcello ELLIOTT 02/21/2017 02/21/2017 Active [facility] Procedures Plan of Care Social History Assessment and Plan Family History Value Date Source Advance Directives Order Name Results Value Date Source
--- OUTSIDE RECORDS SUMMARY | 2017-03-05 02:10 | XMS REPORT | Encounter Summary ---
Author Author [facility] Organization [facility] Address Unknown Phone Unavailable Care Team Providers Care Technical Support Technician Name Role Phone PCP Unavailable Encounter Details Date Type Department Care Team Description 02/21/2017 Prep for Case [facility] Agatha Hopkins, Physicians - Internal ROUTE RIDER-TELEVISION NEWS VIDEO EDITOR Medicine [address] [facility] [address] [address] [address] [facility] [phone] [place] [address] Social History Tobacco Use Types Packs/Day Years Used Date Current Every Day Smoker Cigarettes Quit: 01/24/2009 Alcohol Use Drinks/Week oz/Week Comments No 0 Standard 0.0 drinks or equivalent Sex Assigned at Date Recorded Not on file as of this encounter Plan of Treatment Date Type Specialty Care Team Description 04/03/2017 Surgery Franklin Nichols MD COLONOSCOPY [address] [place] [address] 04/03/2017 Procedure Pass 04/03/2017 Hospital Franklin Nichols MD Constipation Encounter [address] [place] [address] as of this encounter Visit Diagnoses Not on filein this encounter
--- OUTSIDE RECORDS SUMMARY | 2017-03-05 02:10 | XMS REPORT | Encounter Summary ---
Author Author [facility] Organization [facility] Address Unknown Phone Unavailable Care Team Providers Care Assembly Supervisor Name Role Phone PCP Unavailable Encounter Details Date Type Department Care Team Description 04/03/2017 Procedure Pass Gastrointenstinal Endoscopy [address] [place] [address] Social History Tobacco Use Types Packs/Day Years Used Date Current Every Day Smoker Cigarettes Quit: 01/24/2009 Alcohol Use Drinks/Week oz/Week Comments No 0 Standard 0.0 drinks or equivalent Sex Assigned at Date Recorded Not on file as of this encounter Plan of Treatment Date Type Specialty Care Team Description 04/03/2017 Surgery Franklin Nichols MD COLONOSCOPY [address] [place] [address] 04/03/2017 Procedure Pass 04/03/2017 Hospital Franklin Nichols MD Constipation Encounter [address] [place] [address] as of this encounter Visit Diagnoses Not on filein this encounter
--- OUTSIDE RECORDS SUMMARY | 2017-03-05 02:10 | XMS REPORT | Encounter Summary ---
Author Author [facility] Organization [facility] Address Unknown Phone Unavailable Care Team Providers Care Junior Copywriter Name Role Phone PCP Unavailable Reason for Referral * Consult, Test & Treat Status Reason Specialty Diagnoses / Referred By Referred To Procedures Contact Contact New Request Specialty Neurology Diagnoses Kellie, Services Other type of Agatha, FINISHING MACHINE OPERATOR AUTOMATIC-ELECTRICAL MAINTENANCE TECHNICIAN Required migraine [address] headache, [place] [address] chronicity Phone: pattern, unspecified Fax: headache type [phone] * Radiology Services Status Reason Specialty Diagnoses / Referred By Referred To Procedures Contact Contact New Request Radiology Diagnoses Kellie, Asymptomatic Agatha, FINISHING MACHINE OPERATOR AUTOMATIC-ELECTRICAL MAINTENANCE TECHNICIAN menopausal state [address] [place] deficiency [address] Encounter for Phone: monitoring [phone] long-term proton Fax: pump inhibitor [phone] therapy P rocedures BONE DENSITY SPINE/HIP * Consult, Test & Treat Status Reason Specialty Diagnoses / Referred By Referred To Procedures Contact Contact New Request Specialty Anesthesia Pain Diagnoses Kellie, Services Abdominal pain, Agatha, FINISHING MACHINE OPERATOR AUTOMATIC-ELECTRICAL MAINTENANCE TECHNICIAN Required unspecified [address] [place] [address] Reason for Visit * Reason Comments Gastroparesis Constipation Encounter Details Date Type Department Care Team Description 02/21/2017 Office Visit [facility] KellieAgatha, Constipation, unspecified Physicians - Internal FINISHING MACHINE OPERATOR AUTOMATIC-ELECTRICAL MAINTENANCE TECHNICIAN constipation type Medicine [address] (Primary Dx);Abdominal [address] [address] pain, unspecified [address] [phone] location;Cigarette OFFICE [facility] smoker;Vitamin D [place], [place] [id number] monitoring long-term [phone] proton pump inhibitor therapy;Other type of migraine;Nonintractable [...] mcg and send it to [facility] in [place]. We would like you to take your omeprazole 30 minutes to 1 hour prior to first meal a day Start taking a probiotic. We recommend align which is [id number]. We will call a prescription in for [...] I understand you are working with her government program manager regarding your blood thinners prior to the [...] quit within a month, and do it. [place] to your quit plan Talk to your [...] Track your triggers What gives you that N-xlrv-k-cigarette feeling? List all the situations that make [...] wants to stop smoking. Date Last Reviewed: 11/24/201519991174-2063 [employer]. [address] [facility], [place] [address]. All rights reserved. This information is not [...] by your healthcare provider Date Last Reviewed: 05/21/201519994482-0235 [employer]. [address] [place] [address], [place] [address]. All rights reserved. This information is not [...] that are mashed or put through a bone drier. In addition , you may need to [...] will likely be needed. Date Last Reviewed: [facility], [address] [place] [address], [place] [address]. All rights reserved. This information is not [...] times a day and she is due. Residential Living Assistant would like to stop her rivaroxaban to [...] Linzess 145 mcg and send it to [facility] in [place]. Per patient she is due for a colonoscopy because of her history of polyps. We will obtain record of last colonoscopy, the patient and her sister feel this was done in [place] at [facility]. It was stated that we would prefer for colonoscopy to be done here, at , with your current GI provider; as opposed to locally. With history of N/V and GERD would also like to do an EGD at the time of colonoscopy. She is working with her government program manager regarding stopping blood thinners 5 days prior [...] maintenance Return to clinic at next available [facility] appointment All questions were answered. I spent [phone] (70 minutes) with the patient in a [id number]-svjn manner today, over 50% of the time was spent counseling and coordinating care. Thank you for allowing me to participate in the care of this patient. Please call GI clinic with any questions/concerns. in this encounter Plan of Treatment Date Type Specialty Care Team Description 04/03/2017 Surgery Franklin Nichols MD COLONOSCOPY [address] [place] [address] 04/03/2017 Procedure Pass 04/03/2017 Hospital Franklin Nichols MD Constipation Encounter [address] [place] [address] Name Priority Associated Diagnoses Order Schedule CBC [...]
--- OUTSIDE RECORDS SUMMARY | 2017-03-05 02:10 | XMS REPORT | Encounter Summary ---
Author Author [facility] Organization [facility] Address Unknown Phone Unavailable Care Team Providers Care Hot Press Operator Name Role Phone PCP Unavailable Reason for Visit * Reason Comments Other Encounter Details Date Type Department Care Team Description 12/13/2016 Telephone [facility] Ree Boswell ARNP Other Physicians - Internal [address] [facility] Medicine [place] [address] [facility] [place] [address] OFFICE BLDG [phone] [address] [place] [address] Social History Tobacco Use Types [...] she start a probiotic daily such as InferX or Align daily and monitor. * Telephone [...] 04/03/2017 Surgery Franklin Nichols MD COLONOSCOPY [address] [place] [address] 04/03/2017 Procedure Pass 04/03/2017 Hospital Franklin Nichols MD Constipation Encounter [address] [place] [address] as of this encounter Visit Diagnoses Not on filein this encounter
--- OUTSIDE RECORDS SUMMARY | 2017-03-05 02:10 | XMS REPORT | Encounter Summary ---
Author Author [facility] Organization [facility] Address Unknown Phone Unavailable Care Team Providers Care Copier Repair Technician Name Role Phone PCP Unavailable Encounter Details Date Type Department Care Team Description 04/03/2017 Surgery Gastrointenstinal Franklin Nichols MD COLONOSCOPY Endoscopy [address] [facility] [address] [place] [address] [place] [address] [phone] Social History Tobacco Use Types Packs/Day Years Used Date Current Every Day Smoker Cigarettes Quit: 01/24/2009 Alcohol Use Drinks/Week oz/Week Comments No 0 Standard 0.0 drinks or equivalent Sex Assigned at Date Recorded Not on file as of this encounter Plan of Treatment Date Type Specialty Care Team Description 04/03/2017 Surgery Franklin Nichols MD COLONOSCOPY [address] [place] [address] 04/03/2017 Procedure Pass 04/03/2017 [facility] Franklin Nichols MD Constipation Encounter [address] [place] [address] as of this encounter Visit Diagnoses Diagnosis Abdominal pain Abdominal pain, unspecified site Constipation Unspecified constipation in this encounter Admitting Diagnoses Diagnosis Abdominal pain Abdominal pain, unspecified site Constipation Unspecified constipation in this encounter
--- OUTSIDE RECORDS SUMMARY | 2017-03-05 02:10 | XMS REPORT | Clinical Summary ---
Author Author [facility] Organization [facility] Address Unknown Phone Unavailable Care Team Providers Care Card Folder Name Role Phone PCP Unavailable Source Comments Some departments are not documenting in the electronic medical record. If you do not see the information that you expected, contact Release of Information in the Health Information Management department at [phone] for further assistance in locating additional records.[facility] Allergies Active Allergy Reactions Severity Noted [...] HCL Take by mouth. Active (TIZANIDINE PO) [id number] Take 1 capsule by mouth 30 capsule [...] Overview: Added automatically from request for surgery [id number] Superior mesenteric artery syndrome (HCC) 03/17/2009 Anemia [...] 04/03/2017 Surgery Franklin Nichols MD COLONOSCOPY [address] [place] [address] 04/03/2017 Procedure Pass 04/03/2017 Hospital Franklin Nichols MD Constipation Encounter [address] [place] [address] Health Maintenance Due Date Last Done Comments PHYSICAL (COMPREHENSIVE) 1978 EXAM PERTUSSIS VACCINE 1982 TETANUS VACCINE 1988 CERVICAL CANCER SCREENING 2001 BREAST CANCER SCREENING 2011 INFLUENZA VACCINE 12/24/2016 03/04/2009 Results * CORTISOL-AM (12/16/2016) Component Value Ref Range Cortisol-AM 22.7 Specimen Performing Laboratory Blood OTHER OUTSIDE LAB from Last 3 Months
--- OUTSIDE RECORDS SUMMARY | 2017-03-05 02:10 | XMS REPORT | Encounter Summary ---
Author Author [facility] Organization [facility] Address Unknown Phone Unavailable Care Team Providers Care Etl Tester Name Role Phone PCP Unavailable Encounter Details Date Type Department Care Team Description 12/23/[address] [facility] Ree Boswell ARNP Weight loss;Nausea and Physicians - Internal [address] vomiting, intractability Medicine [place] 1023 of vomiting not [address] [place] [address] specified, unspecified OFFICE BLDG [phone] vomiting type;Elevated [address] [place] [address] Social History Tobacco Use Types Packs/Day Years Used Date Current Every Day Smoker Cigarettes Quit: 01/24/2009 Alcohol Use Drinks/Week oz/Week Comments No 0 Standard 0.0 drinks or equivalent Sex Assigned at Date Recorded Not on file as of this encounter Plan of Treatment Date Type Specialty Care Team Description 04/03/2017 Surgery Franklin Nichols MD COLONOSCOPY [address] [place] [address] 04/03/2017 Procedure Pass 04/03/2017 Hospital Franklin Nichols MD Constipation Encounter [address] [place] [address] as of this encounter Results * CORTISOL-AM (12/16/2016) Component Value Ref Range Cortisol-AM 22.7 Specimen Performing Laboratory Blood OTHER OUTSIDE LAB in this encounter Visit Diagnoses Diagnosis Weight loss Loss of weight Nausea and vomiting, intractability of vomiting not specified, unspecified vomiting type Elevated LFTs Other abnormal blood chemistry in this encounter
--- OUTSIDE RECORDS SUMMARY | 2017-03-05 02:10 | XMS REPORT | Encounter Summary ---
Author Author [facility] Organization [facility] Address Unknown Phone Unavailable Care Team Providers Care Resist Coater Developer Name Role Phone PCP Unavailable Encounter Details Date Type Department Care Team Description 04/03/2017 Hospital Gastrointenstinal Franklin Nichols MD Constipation Encounter Endoscopy [address] [facility] [address] [place], [place] [id number] [place] [id number] Social History Tobacco Use Types Packs/Day Years Used Date Current Every Day Smoker Cigarettes Quit: 01/24/2009 Alcohol Use Drinks/Week oz/Week Comments No 0 Standard 0.0 drinks or equivalent Sex Assigned at Date Recorded Not on file as of this encounter Plan of Treatment Date Type Specialty Care Team Description 04/03/2017 Surgery Franklin Nichols MD COLONOSCOPY [address] [place] [address] 04/03/2017 Procedure Pass 04/03/2017 Hospital Franklin Nichols MD Constipation Encounter [address] [place], [place] [id number] as of this encounter Visit Diagnoses Diagnosis Constipation Unspecified constipation in this encounter Admitting Diagnoses Diagnosis Abdominal pain Abdominal pain, unspecified site Constipation Unspecified constipation in this encounter
[2017-03-05] MEDS ORDERED: D5 1/2 NS W/KCL 20 MEQ/L 1,000 ML IV ONE (02:24)
[2017-03-05] MEDS ORDERED: NS (IVPB) 100 ML ONE (02:25)
[2017-03-05] MEDS ORDERED: inSUlin (REGULAR) HUMAN 1 UNIT/0.01 ML (CHARGE PER UNIT) ONE (02:26)
[2017-03-05] MEDS: D5 1/2 NS W/KCL 20 MEQ/L 1,000 ML IV SCH ×3 (03:12→11:26)
[2017-03-05] MEDS ORDERED: NS IV 1000 ML X 1 WIDE OPEN IV ONE (03:15)
[2017-03-05] MEDS ORDERED: REGULAR inSUlin DRIP 250 UNITS/NS 250 ML IV SCH ×2 (03:15)
[2017-03-05] MEDS: DEXTROSE 10% IV SOLUTION 1,000 ML IV SCH ×2 (03:15→11:25)
[2017-03-05] MEDS: POTASSIUM CL 10MEQ/50ML IVPB X 4 (TOTAL 40 MEQ) IV SCH ×2 (03:15→04:15)
[2017-03-05] MEDS ORDERED: fentaNYL INJECTION 100 MCG/2 ML AMP IV PRN (03:15)
[2017-03-05 03:19] LABS: BASOPHILS % (AUTO) 0 % (0-10); EOSINOPHILS % (AUTO) 0 % (0-10); LYMPHOCYTES # (AUTO) 2.6 X 10^3 (1.0-4.0); LYMPHOCYTES % (AUTO) 23 % (12-44); MEAN CORPUSCULAR HEMOGLOBIN 27 PG (25-34); MEAN CORPUSCULAR HGB CONC 32 G/DL (32-36); MEAN CORPUSCULAR VOLUME 85 FL (80-99); MONOCYTES # (AUTO) 0.9 X 10^3 (0.0-1.0); MONOCYTES % (AUTO) 8 % (0-12); NEUTROPHILS # (AUTO) 7.5 X 10^3 (1.8-7.8); NEUTROPHILS % (AUTO) 68 % (42-75); PLATELET COUNT 384 10^3/uL (130-400); RED BLOOD COUNT 5.11 10^6/uL (4.35-5.85); RED CELL DISTRIBUTION WIDTH 14.8 % (10.0-14.5)
[2017-03-05 03:37] LABS: CALCIUM 8.8 MG/DL (8.5-10.1); CREATININE SERUM 1.18 MG/DL (0.60-1.30); MAGNESIUM 1.7 MG/DL (1.8-2.4); PHOSPHORUS 4.4 MG/DL (2.3-4.7); POTASSIUM 3.7 MMOL/L (3.6-5.0)
[2017-03-05] MEDS: 1/2 NS W/KCL 20 MEQ/L 1,000 ML IV SCH ×4 (04:00→11:15)
[2017-03-05] MEDS: MAGNESIUM 1 GM/100 ML IVPB 100 ML IV SCH ×3 (04:13→06:00)
[2017-03-05] MEDS ORDERED: HALOPERIDOL 2 MG (HALDOL) TABLET PO PRN (05:15)
[2017-03-05 05:48] LABS: ANION GAP 15 MMOL/L (5-14); BLOOD UREA NITROGEN 14 MG/DL (7-18); BUN/CREATININE RATIO 12; CALCIUM 8.4 MG/DL (8.5-10.1); CARBON DIOXIDE 15 MMOL/L (21-32); CHLORIDE 110 MMOL/L (98-107); CREATININE SERUM 1.14 MG/DL (0.60-1.30); GFR ESTIMATED > 60; GLUCOSE 296 MG/DL (70-105); MAGNESIUM 2.3 MG/DL (1.8-2.4); POTASSIUM 3.7 MMOL/L (3.6-5.0); SODIUM 140 MMOL/L (135-145)
[2017-03-05] MEDS: POTASSIUM CL 10MEQ/50ML IVPB 50 ML IV SCH (06:00)
[2017-03-05] MEDS: KCL 20 MEQ TAB (K-DUR) PO SCH (06:00)
[2017-03-05] MEDS ORDERED: INFLUENZA TRIvalent 2017-2018 0.5 ML/45 MCG SYR IM ONE (07:30)
[2017-03-05] MEDS ORDERED: CATHETER FLUSH 10 ML SYR IV PRN (07:30)
--- NOTE | 2017-03-05 08:12 | Diagnostic Imaging Report ---
INDICATION: Nausea and emesis. Comparison is made to study of 01/22/2017. FINDINGS: Heart size and pulmonary vascularity are within normal limits, and the lungs are clear, bilaterally. IMPRESSION: Unremarkable chest. Dictated by: Dictated on workstation # [id number]
--- NOTE | 2017-03-05 08:38 | Diagnostic Imaging Report ---
PROCEDURE: CT abdomen and pelvis without contrast. TECHNIQUE: Multiple contiguous axial images were obtained through the abdomen and pelvis without the use of intravenous contrast. INDICATION: Nausea and vomiting. CORRELATION STUDY: 10/05/2016. Lung bases with minimal scarring or atelectasis in the right lower lobe. Slight wall thickening of the lower esophagus. Unenhanced liver, spleen, pancreas and adrenal glands appearing unremarkable. Splenules in the hilum are present. Gallbladder is somewhat distended. No bile ductal dilatation. Kidneys appear relatively unchanged. Slight prominent appearance about the left renal pelvis appearing stable. Abdominal aorta normal in contour. Gastrointestinal tract demonstrates moderate distention of the stomach with fluid and gas. There does appear to be suggestion of some mild diffuse bowel wall thickening may be reflective of underdistention. Possibility of enteritis/colitis not excluded. Appendix is not well identified. High degree bowel obstruction does not appear to be present. There are apparent prior surgical change of the intra-abdominal wall with mesh. Urinary bladder unremarkable. Uterus is absent. Osseous structures demonstrate no acute abnormality. IMPRESSION: 1. Mild diffuse bowel wall thickening. This may simply be owing to underdistention with possibility of enteritis/colitis not excluded. The stomach is rather significantly distended with fluid. A definitive bowel obstruction however does not appear to be present. A preliminary report was provided by [employer]. Dictated by: Dictated on workstation # [id number]
[2017-03-05] MEDS: fentaNYL INJECTION 100 MCG/2 ML AMP IV PRN ×3 (08:43→22:36)
[2017-03-05] MEDS: ONDANSETRON 4 MG/2 ML (SDV) Z0FRAN IV PRN ×4 (08:43→21:16)
[2017-03-05] MEDS ORDERED: GABA600T2 PO (10:56)
[2017-03-05] MEDS ORDERED: CYAN100088 PO (10:56)
[2017-03-05] MEDS ORDERED: POTA20LI PO (10:56)
[2017-03-05] MEDS ORDERED: ZOLP10TA5 PO (10:56)
[2017-03-05] MEDS ORDERED: RT-ALBUINH IH (10:56)
[2017-03-05] MEDS ORDERED: MULT-347 PO (10:56)
[2017-03-05] MEDS ORDERED: CYCL10TA9 PO (10:56)
[2017-03-05] MEDS ORDERED: PREG150C PO (10:56)
[2017-03-05] MEDS ORDERED: TIZA4TAB3 PO (10:56)
[2017-03-05] MEDS ORDERED: INSU100I23 SQ (11:26)
[2017-03-05] MEDS ORDERED: INSU100I10 SQ (11:26)
[2017-03-05 12:29] LABS: ANION GAP 6 MMOL/L (5-14); BLOOD UREA NITROGEN 8 MG/DL (7-18); BUN/CREATININE RATIO 9; CALCIUM 8.4 MG/DL (8.5-10.1); CARBON DIOXIDE 18 MMOL/L (21-32); CHLORIDE 117 MMOL/L (98-107); CREATININE SERUM 0.85 MG/DL (0.60-1.30); GFR ESTIMATED > 60; GLUCOSE 106 MG/DL (70-105); POTASSIUM 3.8 MMOL/L (3.6-5.0); SODIUM 141 MMOL/L (135-145)
[2017-03-05] MEDS: inSUlin ASPART (NovoLOG) 1 UNIT/0.01 ML (CHARGE PER UNIT) SC SCH ×4 (13:00→21:13)
[2017-03-05] MEDS ORDERED: inSUlin DETERMIR 1 UNIT/0.01 ML (LEVEMIR) CHARGE PER UNIT SQ NR (13:15)
[2017-03-05] MEDS ORDERED: RT-ALBUTEROL HFA (VENTOLIN) PER PUFF IH PRN (14:00)
[2017-03-05] MEDS ORDERED: RT-ALBUTEROL SULF 2.5 MG/3 ML PRE-MIX VIAL IH PRN (14:30)
--- NOTE | 2017-03-05 14:49 | History & Physicial (CHS) ---
HPI History of Present Illness: 46 yo female with history of gastroparesis and diabetes with recurrent admissions for DKA after vomiting presented to ER with similar complaints- not able to keep anything down for a couple of days along with loose dark stools for about a week. She has had left lower abdominal pain as well. She states she has continued to take her lantus, but has not taken mealtime insulin in a few days due to poor intake. She denies fever. She states she had been given phenergan which helped for a while, but then started vomiting even with that. She is on reglan and dronabinol at home as well. She has seen GI at and has an appointment in early March for what sounds like endoscopy. Date seen by provider: Mar 05, 2017 Time Seen by Provider: 09:49 Attending Physician Oly Piper MD PCP Horace Higgins MD Consult Date of Admission Mar 05, 2017 at 1:50 am Home Medications Home Medications Reviewed patient Home Medication Reconciliation Form Allergies Coded Allergies: aspirin (Verified Allergy, Unknown, 10/25/13) Uncoded Allergies: NSAIDS (Allergy, Unknown, 10/25/13) COUMADIN (Adverse Reaction, Unknown, 10/25/13) VOMITS BLOOD WYU-Izusce-Akstan Hx Patient Social History Alcohol Use: Denies Use Recreational Drug Use: No Smoking Status: Former Smoker Former smoker/When Quit: Oct 24, 2016 Type Used: Cigarettes Recent Foreign Travel: No Contact w/other who traveled: No Recent Hopitalizations: No Recent Infectious Disease Expo: No Physical Abuse Screen: No Sexual Abuse: No Immunizations Up To Date Tetanus Booster (TDap): Less than 5yrs Date of Pneumonia Vaccine: Jul 07, 2014 Date of Influenza Vaccine: Feb 23, 2015 Past Medical History PMHx: IDDM h/o PE after surgery 2014 Migraines PSurgHx: Umbilical hernia repair Hysterectomy Family Medical History Significant Family History: Heart Disease, Diabetes, Hypertension Review of Systems ([facility]) Constitutional: No fever EENTM: no symptoms reported Respiratory: no symptoms reported Cardiovascular: no symptoms reported Gastrointestinal: see HPI Genitourinary: no symptoms reported Musculoskeletal: other (leg pain) Skin: no symptoms reported Psychiatric/Neurological: No Symptoms Reported Reviewed Test Results Reviewed Test Results Lab Laboratory Tests Test 03/04/17 23:25 03/05/17 00:10 03/05/17 01:03 03/05/17 02:23 Range/Units White Blood Count 10.0 4.3-11.0 10^3/uL Red Blood Count 5.77 4.35-5.85 10^6/uL Hemoglobin 15.6 11.5-16.0 G/DL Hematocrit 48 35-52 % Mean Corpuscular Volume 84 80-99 FL Mean Corpuscular Hemoglobin 27 25-34 PG Mean Corpuscular Hemoglobin Concent 32 32-36 G/DL Red Cell Distribution Width 14.9 H 10.0-14.5 % Platelet Count 413 H 130-400 10^3/uL Mean Platelet Volume 11.2 H 7.4-10.4 FL Neutrophils (%) (Auto) 71 42-75 % Lymphocytes (%) (Auto) 21 12-44 % Monocytes (%) (Auto) 8 0-12 % Eosinophils (%) (Auto) 0 0-10 % Basophils (%) (Auto) 0 0-10 % Neutrophils # (Auto) 7.1 1.8-7.8 X 10^3 Lymphocytes # (Auto) 2.1 1.0-4.0 X 10^3 Monocytes # (Auto) 0.8 0.0-1.0 X 10^3 Eosinophils # (Auto) 0.0 0.0-0.3 10^3/uL Basophils # (Auto) 0.0 0.0-0.1 10^3/uL Blood Gas Puncture Site RIGHT RADIAL Blood Gas Patient Temperature 96.2 Arterial Blood pH 7.30 *L 7.37-7.43 Arterial Blood Partial Pressure CO2 21 L 35-45 MMHG Arterial Blood Partial Pressure O2 96 H 79-93 MMHG Arterial Blood HCO3 10 *L 23-27 MMOL/L Arterial Blood Total CO2 11.0 L 21.0-31.0 MMOL/L Arterial Blood Oxygen Saturation 97 94-100 % Arterial Blood Base Excess -15.1 L -2.5-2.5 MMOL/L Ifeanyi Test YES-POS Blood Gas Ventilator Setting NO Blood Gas Inspired Oxygen ROOM AIR Sodium Level 141 135-145 MMOL/L Potassium Level 4.8 3.6-5.0 MMOL/L Chloride Level 98 98-107 MMOL/L Carbon Dioxide Level 9 *L 21-32 MMOL/L Anion Gap 34 H 5-14 MMOL/L Blood Urea Nitrogen 16 7-18 MG/DL Creatinine 1.51 H 0.60-1.30 MG/DL Estimat Glomerular Filtration Rate 45 BUN/Creatinine Ratio 11 Glucose Level 269 H 70-105 MG/DL Calcium Level 11.3 H 8.5-10.1 MG/DL Total Bilirubin 0.5 0.1-1.0 MG/DL Aspartate Amino Transf (AST/SGOT) 27 5-34 U/L Alanine Aminotransferase (ALT/SGPT) 19 0-55 U/L Alkaline Phosphatase 142 H 40-136 U/L Total Protein 9.9 H 6.4-8.2 GM/DL Albumin 4.9 H 3.2-4.5 GM/DL Prothrombin Time 14.1 12.2-14.7 SEC INR Comment 1.1 0.8-1.4 Activated Partial Thromboplast Time 20 L 24-35 SEC Lactic Acid Level 2.80 *H 0.50-2.00 MMOL/L Urine Color YELLOW Urine Clarity CLEAR Urine pH 6 5-9 Urine Specific [place] 1.025 H 1.016-1.022 Urine Protein 4+ NEGATIVE Urine Glucose (UA) 1+ H NEGATIVE Urine Ketones 4+ H NEGATIVE Urine Nitrite NEGATIVE NEGATIVE Urine Bilirubin NEGATIVE NEGATIVE Urine Urobilinogen NORMAL NORMAL MG/DL Urine Leukocyte Esterase 1+ H NEGATIVE Urine RBC (Auto) 3+ H NEGATIVE Urine RBC 2-5 H /HPF Urine WBC RARE /HPF Urine Squamous Epithelial Cells 2-5 /HPF Urine Crystals NONE /LPF Urine Bacteria TRACE /HPF Urine Casts PRESENT /LPF Urine Hyaline Casts 10-25 H /LPF Urine Mucus MODERATE H /LPF Urine Culture Indicated NO Urine Opiates Screen NEGATIVE NEGATIVE Urine Oxycodone Screen NEGATIVE NEGATIVE Urine Methadone Screen NEGATIVE NEGATIVE Urine Propoxyphene Screen NEGATIVE NEGATIVE Urine Barbiturates Screen NEGATIVE NEGATIVE Ur Tricyclic Antidepressants Screen NEGATIVE NEGATIVE Urine Phencyclidine Screen NEGATIVE NEGATIVE Urine Amphetamines Screen NEGATIVE NEGATIVE Urine Methamphetamines Screen NEGATIVE NEGATIVE Urine Benzodiazepines Screen NEGATIVE NEGATIVE Urine Cocaine Screen NEGATIVE NEGATIVE Urine Cannabinoids Screen POSITIVE H NEGATIVE Glucometer 231 H 70-110 MG/DL Test 03/05/17 02:39 03/05/17 03:10 03/05/17 03:50 03/05/17 04:59 Range/Units Lactic Acid Level 1.81 0.50-2.00 MMOL/L White Blood Count 11.0 4.3-11.0 10^3/uL Red Blood Count 5.11 4.35-5.85 10^6/uL Hemoglobin 13.9 11.5-16.0 G/DL Hematocrit 43 35-52 % Mean Corpuscular Volume 85 80-99 FL Mean Corpuscular Hemoglobin 27 25-34 PG Mean Corpuscular Hemoglobin Concent 32 32-36 G/DL Red Cell Distribution Width 14.8 H 10.0-14.5 % Platelet Count 384 130-400 10^3/uL Mean Platelet Volume 11.0 H 7.4-10.4 FL Neutrophils (%) (Auto) 68 42-75 % Lymphocytes (%) (Auto) 23 12-44 % Monocytes (%) (Auto) 8 0-12 % Eosinophils (%) (Auto) 0 0-10 % Basophils (%) (Auto) 0 0-10 % Neutrophils # (Auto) 7.5 1.8-7.8 X 10^3 Lymphocytes # (Auto) 2.6 1.0-4.0 X 10^3 Monocytes # (Auto) 0.9 0.0-1.0 X 10^3 Eosinophils # (Auto) 0.0 0.0-0.3 10^3/uL Basophils # (Auto) 0.0 0.0-0.1 10^3/uL Sodium Level 143 135-145 MMOL/L Potassium Level 3.7 3.6-5.0 MMOL/L Chloride Level 108 H 98-107 MMOL/L Carbon Dioxide Level 10 L 21-32 MMOL/L Anion Gap 25 H 5-14 MMOL/L Blood Urea Nitrogen 15 7-18 MG/DL Creatinine 1.18 0.60-1.30 MG/DL Estimat Glomerular Filtration Rate 60 BUN/Creatinine Ratio 13 Glucose Level 265 H 70-105 MG/DL Calcium Level 8.8 8.5-10.1 MG/DL Phosphorus Level 4.4 2.3-4.7 MG/DL Magnesium Level 1.7 L 1.8-2.4 MG/DL Glucometer 266 H 261 H 70-110 MG/DL Test 03/05/17 05:05 03/05/17 06:02 03/05/17 07:01 03/05/17 08:00 Range/Units Sodium Level 140 135-145 MMOL/L Potassium Level 3.7 3.6-5.0 MMOL/L Chloride Level 110 H 98-107 MMOL/L Carbon Dioxide Level 15 L 21-32 MMOL/L Anion Gap 15 H 5-14 MMOL/L Blood Urea Nitrogen 14 7-18 MG/DL Creatinine 1.14 0.60-1.30 MG/DL Estimat Glomerular Filtration Rate > 60 BUN/Creatinine Ratio 12 Glucose Level 296 H 70-105 MG/DL Calcium Level 8.4 L 8.5-10.1 MG/DL Magnesium Level 2.3 1.8-2.4 MG/DL Glucometer 199 H 210 H 156 H 70-110 MG/DL Test 03/05/17 08:53 03/05/17 10:40 03/05/17 11:21 03/05/17 12:09 Range/Units Glucometer 146 H 101 111 H 70-110 MG/DL Sodium Level 141 135-145 MMOL/L Potassium Level 3.8 3.6-5.0 MMOL/L Chloride Level 117 H 98-107 MMOL/L Carbon Dioxide Level 18 L 21-32 MMOL/L Anion Gap 6 5-14 MMOL/L Blood Urea Nitrogen 8 7-18 MG/DL Creatinine 0.85 0.60-1.30 MG/DL Estimat Glomerular Filtration Rate > 60 BUN/Creatinine Ratio 9 Glucose Level 106 H 70-105 MG/DL Calcium Level 8.4 L 8.5-10.1 MG/DL Test 03/05/17 12:13 Range/Units Glucometer 89 70-110 MG/DL Radiology CT abdomen/pelvis 03/04: "IMPRESSION: 1. Mild diffuse bowel wall thickening. This may simply be owing to underdistention with possibility of enteritis/ colitis not excluded. The stomach is rather significantly distended with fluid. A definitive bowel obstruction however does not appear to be present." CXR 03/04 Unremarkable Physical Exam-([facility]) Physical Exam Vital Signs VS - Last 72 Hours, by Label 03/04/17 03/04/17 03/05/17 03/05/17 22:33 23:47 02:15 02:24 Temp 96.2 97.0 Pulse 125 114 112 Resp 18 18 B/P (MAP) 112/84 Pulse Ox 98 99 99 O2 Delivery Room Air Room Air Room Air 03/05/17 03/05/17 03/05/17 03/05/17 02:24 02:30 02:30 02:45 Temp 98.8 Pulse 112 112 109 Resp 7 18 9 B/P (MAP) 119/77 119/77 98/45 Pulse Ox 98 98 98 99 O2 Delivery Room Air Room Air Room Air Room Air 03/05/17 03/05/17 03/05/17 03/05/17 03:00 04:00 04:00 05:00 Temp 99.2 Pulse 111 112 109 Resp 8 6 13 B/P (MAP) 120/77 98/61 112/48 Pulse Ox 97 97 98 99 O2 Delivery Room Air Room Air Room Air Room Air 03/05/17 03/05/17 03/05/17 06:00 07:00 08:00 Temp 97.8 Pulse 106 106 Resp 19 B/P (MAP) 106/66 Pulse Ox 97 O2 Delivery Room Air Room Air Capillary Refill : Less Than 3 Seconds General Appearance: WD/WN, no apparent distress Respiratory: lungs clear, normal breath sounds Cardiovascular: regular rate, rhythm, no edema, no murmur Gastrointestinal: other (hypoactive bowel sounds, LLQ ttp) Extremities: no pedal edema Neurologic/Psychiatric: alert, normal mood/affect Skin: normal color, warm/dry Clinical Quality Measures DVT/VTE Risk/Contraindication: Risk Factor Score Per Nursin RFS Level Per Nursing on Admit: 4+=Very High Copy Copies To 1: HORACE HIGGINS MD Assessment/Plan Assessment/Plan Admission Dx Diabetic ketoacidosis Vomiting History of PE Plan Diabetic ketoacidosis- pH 7.30 and bicarb of 9 with anion gap of 34 on admission. Admitted to ICU and placed on DKA protocol -Improving this am, anticipate d/c of insulin drip this pm, will resume home insulin at half doses due to poor intake Vomiting- possible gastroparesis, has been chronic problem for her, but unclear if testing has been done for gastroparesis. Is on reglan, dronabinol, ondansetron and promethazine and still having problems, agree with GI evaluation which has been started at , unclear what next step is, no records available as of yet. -CT abdomen pelvis with possible diffuse thickening of bowel wall, but unclear, consider enteritis if vomiting and diarrhea persist -Continue IV ondansetron, resume home promethazine and dronabinol, small frequent meals History of PE- resume home xarelto Chronic pain- continue tizanadine and pregabalin, had recommended d/c duloxetine at last admission given multiple possible medication interactions, will hold duloxetine and again recommend d/c Depression- continue escitalopram, d/c duloxetine as noted above Insomnia- hold home Ambien, discussed at last admission that max dose should be 5 mg and would not recommend security team lead use DVT ppx- on rivaroxaban OLY PIPER MD Mar 05, 2017 2:49 pm
[2017-03-05] MEDS: DRONABINOL 2.5 MG (MARINOL) CAP PO SCH (16:53)
[2017-03-05] MEDS ORDERED: DRONABINOL PO SCH (17:30)
[2017-03-05 18:10] LABS: ANION GAP 9 MMOL/L (5-14); BLOOD UREA NITROGEN 7 MG/DL (7-18); BUN/CREATININE RATIO 8; CALCIUM 9.3 MG/DL (8.5-10.1); CARBON DIOXIDE 20 MMOL/L (21-32); CHLORIDE 114 MMOL/L (98-107); CREATININE SERUM 0.84 MG/DL (0.60-1.30); GFR ESTIMATED > 60; GLUCOSE 90 MG/DL (70-105); POTASSIUM 3.8 MMOL/L (3.6-5.0); SODIUM 143 MMOL/L (135-145)
[2017-03-05] MEDS ORDERED: NON-FORMULARY MEDICATION 1 EA EA (Pregabalin (Lyrica) 150 MG) PO SCH (21:00)
[2017-03-05] MEDS: inSUlin DETERMIR 1 UNIT/0.01 ML (LEVEMIR) CHARGE PER UNIT SQ SCH (21:13)
[2017-03-05] MEDS: PROMETHAZINE 25 MG (PHENERGAN) TAB PO PRN (21:17)
[2017-03-05] MEDS: ATORVASTATIN 40 MG (LIPITOR) TABLET PO SCH (21:41)
[2017-03-05] MEDS: PREGABALIN 75 MG (LYRICA) CAP PO SCH (21:41)
[2017-03-05] MEDS: RIVAROXABAN 20 MG TABLET (XARELTO) PO SCH (21:41)
[2017-03-06] VITALS (14 sets, daily range): BP systolic 86–130; BP diastolic 59–91
[2017-03-06] MEDS: PROMETHAZINE 25 MG (PHENERGAN) TAB PO PRN ×2 (04:29→14:06)
[2017-03-06] MEDS: ONDANSETRON 4 MG/2 ML (SDV) Z0FRAN IV PRN ×4 (04:29→19:35)
[2017-03-06 04:44] LABS: BASOPHILS % (AUTO) 0 % (0-10); EOSINOPHILS # (AUTO) 0.1 10^3/uL (0.0-0.3); EOSINOPHILS % (AUTO) 1 % (0-10); LYMPHOCYTES # (AUTO) 3.6 X 10^3 (1.0-4.0); LYMPHOCYTES % (AUTO) 32 % (12-44); MEAN CORPUSCULAR HEMOGLOBIN 27 PG (25-34); MEAN CORPUSCULAR HGB CONC 32 G/DL (32-36); MEAN CORPUSCULAR VOLUME 84 FL (80-99); MEAN PLATELET VOLUME 10.9 FL (7.4-10.4); MONOCYTES # (AUTO) 0.8 X 10^3 (0.0-1.0); MONOCYTES % (AUTO) 7 % (0-12); NEUTROPHILS # (AUTO) 6.6 X 10^3 (1.8-7.8); NEUTROPHILS % (AUTO) 59 % (42-75); PLATELET COUNT 363 10^3/uL (130-400); RED BLOOD COUNT 4.97 10^6/uL (4.35-5.85); RED CELL DISTRIBUTION WIDTH 14.9 % (10.0-14.5); WHITE BLOOD COUNT 11.1 10^3/uL (4.3-11.0)
[2017-03-06 05:01] LABS: MAGNESIUM 2.2 MG/DL (1.8-2.4); PHOSPHORUS 2.4 MG/DL (2.3-4.7)
[2017-03-06 05:35] LABS: ANION GAP 11 MMOL/L (5-14); BLOOD UREA NITROGEN 8 MG/DL (7-18); BUN/CREATININE RATIO 11; CALCIUM 9.4 MG/DL (8.5-10.1); CARBON DIOXIDE 17 MMOL/L (21-32); CHLORIDE 116 MMOL/L (98-107); CREATININE SERUM 0.75 MG/DL (0.60-1.30); GFR ESTIMATED > 60; GLUCOSE 98 MG/DL (70-105); SODIUM 144 MMOL/L (135-145)
[2017-03-06] MEDS: POTASSIUM CL 10MEQ/50ML IVPB 50 ML IV SCH (06:10)
[2017-03-06] MEDS: MAGNESIUM 1 GM/100 ML IVPB 100 ML IV SCH (06:11)
[2017-03-06] MEDS: inSUlin ASPART (NovoLOG) 1 UNIT/0.01 ML (CHARGE PER UNIT) SC SCH ×5 (06:11→16:56)
[2017-03-06] MEDS: KCL 20 MEQ TAB (K-DUR) PO SCH (06:11)
[2017-03-06] MEDS: PANTOPRAZOLE 40 MG (PROTONIX) TAB PO SCH (06:25)
[2017-03-06] MEDS: fentaNYL INJECTION 100 MCG/2 ML AMP IV PRN ×6 (06:32→22:24)
--- NOTE | 2017-03-06 07:52 | Diagnostic Imaging Report ---
INDICATION: Diabetic ketoacidosis EXAMINATION: Portable chest at 5:32 AM. Heart size and pulmonary vascularity are normal. Lungs are clear. There are no effusions or pneumothoraces. IMPRESSION: Negative chest. Dictated by: Dictated on workstation # [id number]
[2017-03-06] MEDS ORDERED: NON-FORMULARY MEDICATION 1 EA EA (Omeprazole 40 MG) PO SCH (09:00)
[2017-03-06] MEDS ORDERED: DULoxetine 30 MG (CYMBALTA) CAP PO SCH (09:00)
[2017-03-06] MEDS ORDERED: NON-FORMULARY MEDICATION 1 EA EA (Linaclotide (Linzess) 145 MCG) PO SCH (09:00)
[2017-03-06] MEDS: PREGABALIN 75 MG (LYRICA) CAP PO SCH ×2 (09:00→20:55)
--- NOTE | 2017-03-06 10:02 | Progress Note (SOAP) ---
Subjective Subjective/Events-last exam Afebrile, no acute events. Her blood sugars have been better and gap closed, but she continues to have significant nausea. She has eaten a few bites of food which stayed down, but has only tolerated a few bites. Review of Systems Date Seen by Provider: Mar 06, 2017 Time Seen by Provider: 09:00 Objective Exam Last Set of Vital Signs Vital Signs Date Time Temp Pulse Resp B/P (MAP) Pulse Ox O2 Delivery O2 Flow Rate FiO2 03/06/17 09:00 84 14 125/82 100 Room Air 03/06/17 00:00 96.9 Capillary Refill : Less Than 3 Seconds I&O Intake and Output 03/07/17 00:00 Intake Total 450 ml Balance 450 ml Intake Oral 450 ml # Voids 1 General: Alert, No Acute Distress Lungs: Clear to Auscultation, Normal Air Movement Heart: Regular Rate, No Murmurs Abdomen: Normal Bowel Sounds, Soft, Other (diffuse ttp) Neuro: Normal Speech Psych/Mental Status: Mental Status NL Results/Procedures Lab Laboratory Tests 03/05/17 10:40: Glucometer 101 03/05/17 11:21: Glucometer 111H 03/05/17 12:09: Sodium Level 141, Potassium Level 3.8, Chloride Level 117H, Carbon Dioxide Level 18L, Anion Gap 6, Blood Urea Nitrogen 8, Creatinine 0.85, Estimat Glomerular Filtration Rate > 60, BUN/Creatinine Ratio 9, Glucose Level 106H, Calcium Level 8.4L 03/05/17 12:13: Glucometer 89 03/05/17 16:58: Glucometer 111H 03/05/17 17:40: Sodium Level 143, Potassium Level 3.8, Chloride Level 114H, Carbon Dioxide Level 20L, Anion Gap 9, Blood Urea Nitrogen 7, Creatinine 0.84, Estimat Glomerular Filtration Rate > 60, BUN/Creatinine Ratio 8, Glucose Level 90, Calcium Level 9.3 03/05/17 21:08: Glucometer 53*L 03/05/17 22:03: Glucometer 63L 03/06/17 01:21: Glucometer 115H 03/06/17 04:25: White Blood Count 11.1H, Red Blood Count 4.97, Hemoglobin 13.4, Hematocrit 42, Mean Corpuscular Volume 84, Mean Corpuscular Hemoglobin 27, Mean Corpuscular Hemoglobin Concent 32, Red Cell Distribution Width 14.9H, Platelet Count 363, Mean Platelet Volume 10.9H, Neutrophils (%) (Auto) 59, Lymphocytes (%) (Auto) 32 , Monocytes (%) (Auto) 7, Eosinophils (%) (Auto) 1, Basophils (%) (Auto) 0, Neutrophils # (Auto) 6.6, Lymphocytes # (Auto) 3.6, Monocytes # (Auto) 0.8, Eosinophils # (Auto) 0.1, Basophils # (Auto) 0.0, Sodium Level 144, Potassium Level 4.0, Chloride Level 116H, Carbon Dioxide Level 17L, Anion Gap 11, Blood Urea Nitrogen 8, Creatinine 0.75, Estimat Glomerular Filtration Rate > 60, BUN/ Creatinine Ratio 11, Glucose Level 98, Calcium Level 9.4, Phosphorus Level 2.4, Magnesium Level 2.2 Microbiology 03/05/17 Blood Culture - Preliminary, Resulted No growth Radiology CT abdomen/pelvis 03/04: "IMPRESSION: 1. Mild diffuse bowel wall thickening. This may simply be owing to underdistention with possibility of enteritis/ colitis not excluded. The stomach is rather significantly distended with fluid. A definitive bowel obstruction however does not appear to be present." CXR 03/04 Unremarkable Assessment/Plan Assessment/Plan Plan Diabetic ketoacidosis- pH 7.30 and bicarb of 9 with anion gap of 34 on admission. Admitted to ICU and placed on DKA protocol -Improving this am, anticipate d/c of insulin drip this pm, will resume home insulin at half doses due to poor intake 03/06- remained stable off of drip but still with poor intake and a few low blood sugars with half of home dose insulin. Transfer to floor today and continue to monitor intake. Vomiting- possible gastroparesis, has been chronic problem for her, but unclear if testing has been done for gastroparesis. Is on reglan, dronabinol, ondansetron and promethazine and still having problems, agree with GI evaluation which has been started at , unclear what next step is, no records available as of yet. 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, details not available and patient does not recall if she had surgery besides the J tube placement History of PE- resume home xarelto Chronic pain- continue tizanadine and pregabalin, had recommended d/c duloxetine at last admission given multiple possible medication interactions, will hold duloxetine and again recommend d/c Depression- continue escitalopram, d/c duloxetine as noted above Insomnia- hold home Ambien, discussed at last admission that max dose should be 5 mg and would not recommend nursing home use DVT ppx- on rivaroxaban Clinical Quality Measures DVT/VTE Risk/Contraindication: Risk Factor Score Per Nursin RFS Level Per Nursing on Admit: 4+=Very High NANNETTE SANDOVAL MD Mar 06, 2017 10:02 am
[2017-03-06] MEDS: DRONABINOL 2.5 MG (MARINOL) CAP PO SCH ×2 (12:21→16:56)
[2017-03-06] MEDS: RIVAROXABAN 20 MG TABLET (XARELTO) PO SCH (20:55)
[2017-03-06] MEDS: inSUlin DETERMIR 1 UNIT/0.01 ML (LEVEMIR) CHARGE PER UNIT SQ SCH (20:55)
[2017-03-06] MEDS: ATORVASTATIN 40 MG (LIPITOR) TABLET PO SCH (20:55)
[2017-03-06] MEDS ORDERED: NON-FORMULARY MEDICATION 1 EA EA (Escitalopram Oxalate 20 MG) PO SCH (21:00)
[2017-03-07] VITALS: BP 102/77
[2017-03-07] MEDS: ONDANSETRON 4 MG/2 ML (SDV) Z0FRAN IV PRN ×3 (01:14→11:44)
[2017-03-07] MEDS: fentaNYL INJECTION 100 MCG/2 ML AMP IV PRN ×3 (01:14→08:54)
[2017-03-07 04:00] VITALS: BP 102/67
[2017-03-07] MEDS: PANTOPRAZOLE 40 MG (PROTONIX) TAB PO SCH (06:01)
[2017-03-07 06:38] LABS: MEAN PLATELET VOLUME 11.8 FL (7.4-10.4); RED BLOOD COUNT 4.95 10^6/uL (4.35-5.85); RED CELL DISTRIBUTION WIDTH 14.9 % (10.0-14.5); WHITE BLOOD COUNT 6.5 10^3/uL (4.3-11.0)
[2017-03-07 07:00] LABS: ANION GAP 11 MMOL/L (5-14); BLOOD UREA NITROGEN 9 MG/DL (7-18); BUN/CREATININE RATIO 12; CALCIUM 9.3 MG/DL (8.5-10.1); CARBON DIOXIDE 21 MMOL/L (21-32); CHLORIDE 108 MMOL/L (98-107); CREATININE SERUM 0.77 MG/DL (0.60-1.30); GFR ESTIMATED > 60; GLUCOSE 247 MG/DL (70-105); POTASSIUM 3.7 MMOL/L (3.6-5.0); SODIUM 140 MMOL/L (135-145)
[2017-03-07 08:10] VITALS: BP 106/71
[2017-03-07] MEDS: inSUlin ASPART (NovoLOG) 1 UNIT/0.01 ML (CHARGE PER UNIT) SC SCH ×2 (08:47→11:21)
[2017-03-07] MEDS: PREGABALIN 75 MG (LYRICA) CAP PO SCH (08:47)
[2017-03-07] MEDS: DRONABINOL 2.5 MG (MARINOL) CAP PO SCH (11:20)
[2017-03-07 12:00] VITALS: BP 138/83
[2017-03-07] MEDS ORDERED: INSU100I10 SQ (13:06)
[2017-03-07] MEDS ORDERED: INSU100I23 SQ (13:06)
--- NOTE | 2017-03-07 13:09 | Discharge Instructions ---
Discharge [facility] Discharge Medications New, Converted or Re-Newed RX: Other (no new scripts, just decreased dose of insulin) Changed Medications: Insulin Glargine,Hum.rec.anlog (Lantus Solostar) 100 Unit/1 Ml Insuln.pen 15 UNIT SQ HS for 30 Days, EA (Changed from: 30 UNIT) Insulin Lispro (Humalog Kwikpen) 100 Unit/1 Ml Insuln.pen 5 UNIT SQ AC for 30 Days, EA (Changed from: 10 UNIT) Continued Medications: Acetaminophen (Acetaminophen) 500 Mg Tablet 1000 MG PO Q4H PRN for PAIN-MILD, TAB TAKES 2 (500 MG) TABLETS Albuterol Sulfate (Proair Hfa) 1 Puff Puff 2 PUFF IH QID PRN for SHORTNESS OF BREATH, INHALER 1 PUFF = 90 MCG Atorvastatin Calcium (Atorvastatin Calcium) 40 Mg Tablet 40 MG PO HS, TAB Cyanocobalamin (Vitamin B-12) (B-12) 1,000 Mcg Tablet 1000 MCG PO DAILY, TAB Dronabinol (Marinol) 5 Mg Capsule 1 CAP PO 1200,1730, CAP TAKES BEFORE LUNCH AND SUPPER Escitalopram Oxalate (Escitalopram Oxalate) 20 Mg Tablet 20 MG PO HS, TAB Linaclotide (Linzess) 145 Mcg Capsule 145 MCG PO DAILY, CAP Multivitamins with Iron (Daily Vitamin + Iron) 1 Each Tablet 1 TAB PO DAILY, TAB Omeprazole (Omeprazole) 40 Mg Capsule.dr 40 MG PO DAILY, CAP Ondansetron (Ondansetron Odt) 8 Mg Tab.rapdis 8 MG SL Q8H PRN for NAUSEA/VOMITING-1ST LINE, TAB Oxycodone HCl/Acetaminophen (Oxycodone-Acetaminophen 10-325) 1 Each Tablet 1 TAB PO QID PRN for PAIN-MODERATE, TAB Polyethylene Glycol 3350 (Polyethylene Glycol 3350) 255 Gm Powder 17 GM PO DAILY PRN for CONSTIPATION-2ND LINE, EA Potassium Chloride (Potassium Chloride) 20 Meq/15 Ml Liquid 7.5 ML PO DAILY, EA Pregabalin (Lyrica) 150 Mg Capsule 150 MG PO BID, CAP Promethazine HCl (Promethazine Tablet) 25 Mg Tablet 25 MG PO Q6H PRN for NAUSEA/VOMITING-2ND LINE, TAB-CAP Rivaroxaban (Xarelto) 20 Mg Tablet 20 MG PO HS, TAB Tizanidine HCl (Tizanidine HCl) 4 Mg Tablet 4 MG PO BID PRN for MUSCLE SPASMS, TAB Discontinued Medications: Duloxetine HCl (Duloxetine HCl) 30 Mg Capsule.dr 30 MG PO DAILY, CAP Zolpidem Tartrate (Zolpidem Tartrate) 10 Mg Tablet 10 MG PO HS, TAB Patient Instructions Goal/Follow Up Appt: Follow up with Dr. Higgins on 03/11 at 11:20 am. Patient Instructions: Talk to Dr. Higgins about tapering off of your oxycodone to try to help with your stomach problems. Recommend stopping Ambien (zolpidem) because it is not a very safe medication- if continued, should only be on 5 mg daily. Recommend discontinuing Cymbalta (duloxetine) as there may be an interaction with it and your other medications. Return to The Hospital For: Fever, inability to keep down liquids, high blood sugars Activity & Diet Discharge Diet: Eat Small Frequent Meals, ADA Diet Activity as Tolerated: Yes Copy Copies To 1: HORACE HIGGINS MD, BETHANY N MD Mar 07, 2017 1:09 pm
--- NOTE | 2017-03-07 13:10 | Discharge Summary ---
Diagnosis/Chief Complaint Date of Admission Mar 05, 2017 at 1:50 am Date of Discharge Mar 07, 2017 Admission Diagnosis Admission Diagnosis 46 yo female with history of gastroparesis and diabetes with recurrent admissions for DKA after vomiting presented to ER with similar complaints- not able to keep anything down for a couple of days along with loose dark stools for about a week. She has had left lower abdominal pain as well. She states she has continued to take her lantus, but has not taken mealtime insulin in a few days due to poor intake. She denies fever. She states she had been given phenergan which helped for a while, but then started vomiting even with that. She is on reglan and dronabinol at home as well. She has seen GI at and has an appointment in early March for what sounds like endoscopy. Discharge Diagnosis Diabetic ketoacidosis- pH 7.30 and bicarb of 9 with anion gap of 34 on admission. Admitted to ICU and placed on DKA protocol -Improving this am, anticipate d/c of insulin drip this pm, will resume home insulin at half doses due to poor intake 03/06- remained stable off of drip but still with poor intake and a few low blood sugars with half of home dose insulin. Transfer to floor today and continue to monitor intake. 03/07 no DKA, still with decreased intake, discharged with half doses of her insulin Vomiting- possible gastroparesis, has been chronic problem for her, but unclear if testing has been done for gastroparesis. Is on reglan, dronabinol, ondansetron and promethazine and still having problems, agree with GI evaluation which has been started at , unclear what next step is, no records available as of yet. 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 Follow up with GI. History of PE- resumed home xarelto Chronic pain- continued tizanadine and pregabalin, had recommended d/c duloxetine at last admission given multiple possible medication interactions, will hold duloxetine and again recommend d/c Depression- continue escitalopram, d/c duloxetine as noted above Insomnia- hold home Redd, discussed at last admission that max dose should be 5 mg and would not recommend intermediate manager use Chief Complaint/HPI Chief Complaint/HPI 46 yo female with history of gastroparesis and diabetes with recurrent admissions for DKA after vomiting presented to ER with similar complaints- not able to keep anything down for a couple of days along with loose dark stools for about a week. She has had left lower abdominal pain as well. She states she has continued to take her lantus, but has not taken mealtime insulin in a few days due to poor intake. She denies fever. She states she had been given phenergan which helped for a while, but then started vomiting even with that. She is on reglan and dronabinol at home as well. She has seen GI at and has an appointment in early March for what sounds like endoscopy. Discharge Summary-Simple/Stand Consultations Discharge Physical Examination Allergies: Coded Allergies: aspirin (Verified Allergy, Unknown, 10/25/13) Uncoded Allergies: NSAIDS (Allergy, Unknown, 10/25/13) COUMADIN (Adverse Reaction, Unknown, 10/25/13) VOMITS BLOOD Vitals & I&Os Vital Sign - Last 12Hours Date Time Temp Pulse Resp B/P (MAP) Pulse Ox O2 Delivery O2 Flow Rate FiO2 03/07/17 08:10 98.4 76 16 106/71 98 Room Air General Appearance: Alert, No Acute Distress Respiratory: Clear to Auscultation, Normal Air Movement Cardiovascular: Regular Rate, No Murmurs Abdominal: Normal Bowel Sounds, Soft, Other (mild ttp epigastric) Neuro: Normal Speech Psych/Mental Status: Mental Status NL Hospital Course See final discharge diagnosis. Labs Laboratory Tests Test 03/05/17 16:58 03/05/17 17:40 03/05/17 21:08 03/05/17 22:03 Range/Units Glucometer 111 H 53 *L 63 L 70-110 MG/DL Sodium Level 143 135-145 MMOL/L Potassium Level 3.8 3.6-5.0 MMOL/L Chloride Level 114 H 98-107 MMOL/L Carbon Dioxide Level 20 L 21-32 MMOL/L Anion Gap 9 5-14 MMOL/L Blood Urea Nitrogen 7 7-18 MG/DL Creatinine 0.84 0.60-1.30 MG/DL Estimat Glomerular Filtration Rate > 60 BUN/Creatinine Ratio 8 Glucose Level 90 70-105 MG/DL Calcium Level 9.3 8.5-10.1 MG/DL Test 03/06/17 01:21 03/06/17 04:25 03/06/17 12:13 03/06/17 16:08 Range/Units Glucometer 115 H 170 H 111 H 70-110 MG/DL White Blood Count 11.1 H 4.3-11.0 10^3/uL Red Blood Count 4.97 4.35-5.85 10^6/uL Hemoglobin 13.4 11.5-16.0 G/DL Hematocrit 42 35-52 % Mean Corpuscular Volume 84 80-99 FL Mean Corpuscular Hemoglobin 27 25-34 PG Mean Corpuscular Hemoglobin Concent 32 32-36 G/DL Red Cell Distribution Width 14.9 H 10.0-14.5 % Platelet Count 363 130-400 10^3/uL Mean Platelet Volume 10.9 H 7.4-10.4 FL Neutrophils (%) (Auto) 59 42-75 % Lymphocytes (%) (Auto) 32 12-44 % Monocytes (%) (Auto) 7 0-12 % Eosinophils (%) (Auto) 1 0-10 % Basophils (%) (Auto) 0 0-10 % Neutrophils # (Auto) 6.6 1.8-7.8 X 10^3 Lymphocytes # (Auto) 3.6 1.0-4.0 X 10^3 Monocytes # (Auto) 0.8 0.0-1.0 X 10^3 Eosinophils # (Auto) 0.1 0.0-0.3 10^3/uL Basophils # (Auto) 0.0 0.0-0.1 10^3/uL Sodium Level 144 135-145 MMOL/L Potassium Level 4.0 3.6-5.0 MMOL/L Chloride Level 116 H 98-107 MMOL/L Carbon Dioxide Level 17 L 21-32 MMOL/L Anion Gap 11 5-14 MMOL/L Blood Urea Nitrogen 8 7-18 MG/DL Creatinine 0.75 0.60-1.30 MG/DL Estimat Glomerular Filtration Rate > 60 BUN/Creatinine Ratio 11 Glucose Level 98 70-105 MG/DL Calcium Level 9.4 8.5-10.1 MG/DL Phosphorus Level 2.4 2.3-4.7 MG/DL Magnesium Level 2.2 1.8-2.4 MG/DL Test 03/06/17 20:25 03/07/17 05:09 03/07/17 05:23 03/07/17 10:53 Range/Units Glucometer 149 H 244 H 72 70-110 MG/DL White Blood Count 6.5 4.3-11.0 10^3/uL Red Blood Count 4.95 4.35-5.85 10^6/uL Hemoglobin 13.5 11.5-16.0 G/DL Hematocrit 42 35-52 % Mean Corpuscular Volume 84 80-99 FL Mean Corpuscular Hemoglobin 27 25-34 PG Mean Corpuscular Hemoglobin Concent 33 32-36 G/DL Red Cell Distribution Width 14.9 H 10.0-14.5 % Platelet Count 361 130-400 10^3/uL Mean Platelet Volume 11.8 H 7.4-10.4 FL Sodium Level 140 135-145 MMOL/L Potassium Level 3.7 3.6-5.0 MMOL/L Chloride Level 108 H 98-107 MMOL/L Carbon Dioxide Level 21 21-32 MMOL/L Anion Gap 11 5-14 MMOL/L Blood Urea Nitrogen 9 7-18 MG/DL Creatinine 0.77 0.60-1.30 MG/DL Estimat Glomerular Filtration Rate > 60 BUN/Creatinine Ratio 12 Glucose Level 247 H 70-105 MG/DL Calcium Level 9.3 8.5-10.1 MG/DL Radiology Reviewed CT abdomen/pelvis 03/04: "IMPRESSION: 1. Mild diffuse bowel wall thickening. This may simply be owing to underdistention with possibility of enteritis/ colitis not excluded. The stomach is rather significantly distended with fluid. A definitive bowel obstruction however does not appear to be present." CXR 03/04 Unremarkable Discharge Instructions to patient/family Please see electronic discharge instructions given to patient. Discharge Medications Reviewed and agree with Discharge Medication list on patient's Discharge Instruction sheet Clinical Quality Measures DVT/VTE Risk/Contraindication: Risk Factor Score Per Nursin RFS Level Per Nursing on Admit: 4+=Very High Copy Copies To 1: HORACE HIGGINS MD, BETHANY N MD Mar 07, 2017 13:10
[2017-03-07 14:10] VITALS: BP 138/83
== END 2017-03-07 14:10 | disposition home or self-care (01) | DRG 639 ==
LOC: EDUNIT# 22:13 → ER 22:15 → ICU 03-05 01:50 → 4TH 03-06 15:05
PROVIDERS: ADMIT Family Medicine; ATTEND Family Medicine
DX: E11.10 Type 2 diabetes mellitus with ketoacidosis without coma (principal); E11.43 Type 2 diabetes mellitus with diabetic autonomic (poly)neuropathy; G89.29 Other chronic pain; F32.9 Major depressive disorder, single episode, unspecified; G47.00 Insomnia, unspecified; J45.909 Unspecified asthma, uncomplicated; I10 Essential (primary) hypertension; K21.9 Gastro-esophageal reflux disease without esophagitis; F41.9 Anxiety disorder, unspecified; Z86.711 Personal history of pulmonary embolism; Z79.01 Long term (current) use of anticoagulants; Z79.4 Long term (current) use of insulin
CPT/HCPCS: 36415; 71010; 74176; 80048; 80053; 80306; 81000; 82805; 82962; 83605; 83735; 84100; 85025; 85027; 85610; 85730; 87040; 87081; 96361; 96374; 96375

== ENCOUNTER 2017-04-29 14:50 | Outpatient (RCR) | payer MEDICARE, MEDICAID ==
[~2017-04-29 14:50] MED LIST changes: +ALBU90AE; +AZIT250T12 PO; -AZIT250T5 PO; +CYAN100088 PO; +LINA145C PO; +MULT-347 PO; +POTA20LI PO; +PREG150C PO; +PROM25TA14 PO; +RT-ALBUINH IH; +VARE1TAB21
[2017-04-29 15:09] LABS: BASOPHILS % (AUTO) 0 % (0-10); EOSINOPHILS # (AUTO) 0.1 10^3/uL (0.0-0.3); EOSINOPHILS % (AUTO) 1 % (0-10); HEMATOCRIT 38 % (35-52); LYMPHOCYTES # (AUTO) 2.6 X 10^3 (1.0-4.0); LYMPHOCYTES % (AUTO) 33 % (12-44); MEAN CORPUSCULAR HEMOGLOBIN 28 PG (25-34); MEAN CORPUSCULAR HGB CONC 32 G/DL (32-36); MEAN CORPUSCULAR VOLUME 88 FL (80-99); MEAN PLATELET VOLUME 11.9 FL (7.4-10.4); MONOCYTES # (AUTO) 0.4 X 10^3 (0.0-1.0); MONOCYTES % (AUTO) 5 % (0-12); NEUTROPHILS # (AUTO) 4.8 X 10^3 (1.8-7.8); NEUTROPHILS % (AUTO) 60 % (42-75); PLATELET COUNT 275 10^3/uL (130-400); RED BLOOD COUNT 4.29 10^6/uL (4.35-5.85); RED CELL DISTRIBUTION WIDTH 14.8 % (10.0-14.5)
[2017-04-29 15:26] LABS: ALANINE AMINOTRANSFERASE 19 U/L (0-55); ALBUMIN 3.8 GM/DL (3.2-4.5); ALKALINE PHOSPHATASE 91 U/L (40-136); BILIRUBIN,TOTAL 0.4 MG/DL (0.1-1.0); BUN/CREATININE RATIO 15; CALCIUM 9.5 MG/DL (8.5-10.1); CARBON DIOXIDE 25 MMOL/L (21-32); CHLORIDE 109 MMOL/L (98-107); CREATININE SERUM 0.72 MG/DL (0.60-1.30); GFR ESTIMATED > 60; GLUCOSE 145 MG/DL (70-105); POTASSIUM 3.6 MMOL/L (3.6-5.0); SODIUM 145 MMOL/L (135-145); TOTAL PROTEIN 6.8 GM/DL (6.4-8.2)
== END 2017-07-28 | disposition home or self-care (01) ==
LOC: ONC 14:50
PROVIDERS: ATTEND Internal Medicine Hematology & Oncology
DX: I27.82 Chronic pulmonary embolism (principal); D64.9 Anemia, unspecified; E11.9 Type 2 diabetes mellitus without complications; F32.9 Major depressive disorder, single episode, unspecified; Z79.01 Long term (current) use of anticoagulants; Z79.899 Other long term (current) drug therapy; F17.210 Nicotine dependence, cigarettes, uncomplicated
CPT/HCPCS: 36415; 80053; 85025; 99213

== ENCOUNTER → 2017-05-20 | Outpatient (CLI) | payer MEDICARE, MEDICAID ==
--- NOTE | 2017-05-20 19:00 | Diagnostic Imaging Report ---
EXAMINATION: Bilateral diagnostic mammogram with tomography evaluation. The current study was also evaluated with a Computer Aided Detection (CAD) system. INDICATION: Breast pain and lump in the left retroareolar region. COMPARISON: 04/15/2016. FINDINGS: The breasts are composed of heterogeneously dense parenchyma which may decrease mammographic sensitivity. There is no mass, architectural distortion, or suspicious cluster of calcifications. IMPRESSION: Dense breasts with no focal lesion identified. Ultrasound evaluation of area of pain and lump is pending. ACR BI-RADS Category 0: Incomplete. (Needs additional imaging evaluation). Result letter will be mailed to the patient. Note: At least 10% of breast cancer is not imaged by mammography. Dictated by: Dictated on workstation # [id number]
--- NOTE | 2017-05-20 20:14 | Diagnostic Imaging Report ---
Left breast ultrasound. INDICATION: Left breast lump. FINDINGS: Area of lump in the periareolar region of the left breast is scanned with no underlying abnormality seen. IMPRESSION: Negative study. Clinical follow-up is recommended. ACR BI-RADS Category 1: Negative. Dictated by: Dictated on workstation # [id number]
== END ==
LOC: RAD 10:03
PROVIDERS: ATTEND Nurse Practitioner Family
DX: R92.2 Inconclusive mammogram (principal)
CPT/HCPCS: 76642; 77066

== ENCOUNTER 2017-08-11 18:02 | Emergency (ER) | payer MEDICARE, MEDICAID ==
[~2017-08-11] VITALS: Ht 157.5 cm; Wt 44.5 kg
--- OUTSIDE RECORDS SUMMARY | 2017-08-11 18:08 | XMS REPORT | Clinical Summary ---
Author Author [facility] Organization [facility] Address Unknown Phone Unavailable Care Team Providers Care Superintendent Nonselling Name Role Phone Aamir Magdaleno MD Unavailable Greyson Powell RN Unavailable Unavailable Ella Carrion RN Unavailable Unavailable Misa Alvarez MD Unavailable Smitha Milian RN Unavailable Unavailable Tito Limon MD Unavailable John Raymond MD Unavailable Chioma Jacques RN Unavailable Unavailable Megan Bryan RN Unavailable Unavailable Myesha Orona NURSERY ATTENDANT Unavailable Arvin Aguilar RN Unavailable Unavailable Manasa Savage RN Unavailable Unavailable Andrea Durant NURSERY ATTENDANT Unavailable Jack Davila RN Unavailable Unavailable Vanessa Perez MD Unavailable Radha Malin MD Unavailable Chuck Frais MD PCP Source Comments Some departments are not documenting in the electronic medical record. If you do not see the information that you expected, contact Release of Information in the Health Information Management department at [phone] for further assistance in locating additional records.[facility] Allergies Active Allergy Reactions Severity Noted Date Comments Aspirin SWELLING High 05/24/2007 Ciprofloxacin VOMITING Low 11/24/2016 Warfarin RASH, VOMITING, ITCHING High 05/24/2007 Ibuprofen SWELLING High 05/24/2007 Ketorolac Tromethamine SWELLING Medium 05/24/2007 Patient reports she tolerates with Benadryl. Current [...] by mouth Active mg capsule twice daily. atorvastatin (LIPITOR) 40 Take 40 mg [...] HCL Take by mouth. Active (TIZANIDINE PO) linaclotide 72 mcg cap Take 72 mcg by mouth 30 capsule 0 07/30/19 Active daily 30 minutes before 18 breakfast. linaclotide(+) (LINZESS) Take 1 capsule by mouth 30 capsule 2 07/30/19 Discontin 145 mcg cap daily 30 minutes before 17 18 ued capsuleIndications: breakfast. Indications: CHRONIC IDIOPATHIC CHRONIC IDIOPATHIC CONSTIPATION CONSTIPATION Active Problems Problem Noted Date Gastroesophageal reflux disease without esophagitis 07/29/2017 Gastroparesis 07/29/2017 Smoker 07/29/2017 Constipation 02/21/2017 Overview: Added automatically from request for surgery [id number] Superior mesenteric artery syndrome (HCC) 03/17/2009 Anemia 03/17/2009 Vitamin D deficiency 03/17/2009 Malnutrition (HCC) 03/17/2009 Weight loss, unintentional 03/06/2009 Migraine 09/17/2008 Depression 09/17/2008 Anxiety 09/17/2008 Suicide attempt (HCC) 09/17/2008 Asthma 09/17/2008 Chronic pain 09/17/2008 Resolved Problems Problem Noted Date Resolved Date Abdominal pain 09/17/2008 07/29/2017 Encounters Date Type Specialty Care Team Description 07/29/2017 Office Visit Gastroenterology Agatha Hopkins, Constipation, unspecified 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 constipation type (Primary Dx); Chronic pain due to trauma; Migraine without aura and without status migrainosus, not intractable; Superior mesenteric artery syndrome (HCC); Vitamin D deficiency; Weight loss, unintentional; Gastroesophageal reflux disease without esophagitis; Gastroparesis; Smoker; Needs smoking cessation education from Last 3 Months Immunizations Name Dates Previously Given Next Due FLU VACCINE >3YO 03/04/2009 (Preservative Free) Family History Relation Name Status Comments Mother Social History Tobacco Use Types Packs/Day Years Used Date Former Smoker Cigarettes Quit: 01/24/2009 Smokeless Tobacco: Never Used Alcohol Use Drinks/Week oz/Week Comments No 0 Standard 0.0 drinks or equivalent Sex Assigned at Date Recorded Not on file Last Filed Vital Signs Vital Sign Reading Time Taken Blood Pressure 114/75 07/29/2017 11:22 AM FUELS ENGINEER Pulse 107 07/29/2017 11:22 AM FUELS ENGINEER Temperature 37 C (98.6 F) 04/03/2017 2:25 PM FUELS ENGINEER Respiratory Rate 18 07/29/2017 11:22 AM FUELS ENGINEER Oxygen Saturation 100% 04/03/2017 3:01 PM FUELS ENGINEER Inhaled Oxygen - - Concentration Weight 44.2 kg (97 lb 6.4 oz) 07/29/2017 11:22 AM FUELS ENGINEER Height 158.8 cm (5' 2.5") 07/29/2017 11:22 AM FUELS ENGINEER Body Mass Index 17.53 07/29/2017 11:22 AM FUELS ENGINEER Plan of Treatment Health Maintenance Due Date Last Done Comments PHYSICAL (COMPREHENSIVE) 1978 EXAM PERTUSSIS VACCINE 1982 TETANUS VACCINE 1988 CERVICAL CANCER SCREENING 2001 BREAST CANCER SCREENING 2011 INFLUENZA VACCINE 02/23/2018 03/04/2009 HIV SCREENING Completed 03/03/2009 Results Not on filefrom Last 3 Months
--- OUTSIDE RECORDS SUMMARY | 2017-08-11 18:08 | XMS REPORT | Encounter Summary ---
Author Author [facility] Organization [facility] Address Unknown Phone Unavailable Care Team Providers Care Shipfitter Apprentice Name Role Phone Aamir Magdaleno MD Unavailable Greyson Powell RN Unavailable Unavailable Ella Carrion RN Unavailable Unavailable Misa Alvarez MD Unavailable Smitha Milian RN Unavailable Unavailable Tito Limon MD Unavailable John Raymond MD Unavailable Chioma Jacques RN Unavailable Unavailable Megan Bryan RN Unavailable Unavailable Myesha Orona CREATIVE ART THERAPIST Unavailable Arvin Aguilar RN Unavailable Unavailable Manasa Savage RN Unavailable Unavailable Andrea Durant CREATIVE ART THERAPIST Unavailable Jack Davila RN Unavailable Unavailable Vanessa Perez MD Unavailable Radha Malin MD Unavailable Chuck Frias MD PCP Reason for Visit * Reason Comments Constipation Encounter Details Date Type Department Care Team Description 07/29/2017 Office Visit [facility] Agatha Hopkins Constipation, unspecified Physicians - Internal CREATIVE ART THERAPIST-PRACTICE CLINICIAN constipation type Medicine [address] (Primary Dx); [address] [address] Chronic pain due to [address] MED [phone] trauma; OFFICE BLDG Migraine without aura and [place], [place] without status [id number] migrainosus, not [phone] intractable; Superior mesenteric artery syndrome (HCC); Vitamin D deficiency; Weight loss, unintentional; Gastroesophageal reflux disease without esophagitis; Gastroparesis; Smoker; Needs smoking cessation education Social History Tobacco Use Types Packs/Day Years Used Date Former Smoker Cigarettes Quit: 01/24/2009 Smokeless Tobacco: Never Used Alcohol Use Drinks/Week oz/Week Comments No 0 Standard 0.0 drinks or equivalent Sex Assigned at Date Recorded Not on file as of this encounter Last Filed Vital Signs Vital Sign Reading Time Taken Blood Pressure 114/75 07/29/2017 11:22 AM DEODORIZER OPERATOR Pulse 107 07/29/2017 11:22 AM DEODORIZER OPERATOR Temperature - - Respiratory Rate 18 07/29/2017 11:22 AM DEODORIZER OPERATOR Oxygen Saturation - - Inhaled Oxygen - - Concentration Weight 44.2 kg (97 lb 6.4 oz) 07/29/2017 11:22 AM DEODORIZER OPERATOR Height 158.8 cm (5' 2.5") 07/29/2017 11:22 AM DEODORIZER OPERATOR Body Mass Index 17.53 07/29/2017 11:22 AM DEODORIZER OPERATOR in this encounter Instructions * Patient Instructions - Carolina Quezada LPN - 07/29/2017 11:00 AM DEODORIZER OPERATOR Formatting of this note may be different from the original. We have previous requested TSH levels to be drawn however did not receive from local lab. We will request these results if they were not drawn you will need to have them drawn. You have been given these orders. We have also requested to recheck Vit D levels. You have been provided with these orders. We will write you a prescription for Linzess 72 mcg and send it to [facility] in [place]. Please call us in 3 weeks with an update on how this medication is helping your constipation. Continue taking Omperazole 40 mg you are to take 1 tab by mouth daily. Please take this medication 30-60 min prior to your first meal. Continue taking a probiotic. Please make an appointment with box office clerk at we have given you information to contact this dept. We will give you a handout on gastroparesis diet. You are at risk for poor bone density being a smoker, of slight stature, and around the age of menopause. We will print off over requisition for you to get a DEXA/bone density scan. You may get this locally. Continue taking 1200 mg calcium daily and vitamin D 2000 units daily. This is important for your bone density. Not due for colonoscopy until 2026 Please re-establish with neurology. Please see them as soon as possible regarding her headaches/chronic migraines. Please work with primary care provider to [...] quit within a month, and do it. Perrin to your quit plan Talk to your [...] Track your triggers What gives you that B-rxqt-r-cigarette feeling? List all the situations that make [...] wants to stop smoking. Date Last Reviewed: 11/24/201519992709-7713 [employer]. [address] [place] [address], [place] [address]. All rights reserved. This information is not [...] by your healthcare provider Date Last Reviewed: 05/21/201519995887-[address] [employer] [place] [address]. All rights reserved. This information is not [...] that are mashed or put through a damage adjuster. In addition , you may need to [...] will likely be needed. Date Last Reviewed: 0511-[address], [place] [address]. All rights reserved. This information is not intended as a substitute for professional medical care. Always follow your healthcare professional's instructions. This information has been modified by your health care provider with permission from the publisher. in this encounter Progress Notes * Agatha Hopkins APRN-MELI - 07/29/2017 11:00 AM DEODORIZER OPERATOR Formatting of this note may be different from the original. Date of Service: 07/29/2017 Subjective: Sunitha Feldman is a 47 y.o. female female prior patient of Dr. Olivo, current patient of Dr. Nichols; with PMH of PE (currently AC on rivaroxaban/xarelto managed by outside hematology), DM (blood sugars ranging from 60-600 (per patient)), HTN, Tobaccoism, marijuana use, chronic back pain ( narcotic dependent), and SMA syndrome (J tube was previously needed) returns to the clinic for continued management of constipation (on 145mcg Linzess), abdominal pain (resolved), gastroparesis (stopped reglan d/t TD, taking promethazine and zofran), and GERD (on 40mg of Omeprazole daily). History of Present Illness Ms. Feldman and her sister return to the clinic reporting significant improvement in many of her symptoms. She had a colonoscopy on 04/03/17 which was completely normal. She had an EGD on 04/13/17 which found 1 fundic gland polyp thought to be a result of long-term proton pump inhibitor use with a normal duodenum; she was negative for H. pylori. She reports that she has yet to receive a DEXA scan, neurology consultation/appointment, and trigger point injections for abdominal pain. She reports that she has seen a dietitian locally and [facility] named Pattie Rdz at the [facility] whom discussed predominately carb counting and made changes in her insulin but also discussed frequent small meals consistent with gastroparesis diet. She continues to eat approximately 2 meals per day. She takes 145 mcg of Linzess weekly which cause significant diarrhea, fecal incontinence, and urgency that lasts for approximately 3 days. She takes 2000 units of vitamin D daily and a multivitamin. She takes 40 mg of omeprazole 30 minutes to 1 hour prior to first meal of the day. After her colonoscopy and EGD she felt significantly better with out any abdominal pain. She has stopped taking the Reglan completely and experienced no changes in her nausea/vomiting symptoms. She also now only takes a half of Percocet daily as opposed to the 4 Percocets she was taking a day at her last appointment. She continues to take promethazine every 6 hours for nausea and at least one Zofran daily. She denies signs/ symptoms of GERD, pain with swallowing, melena, hematochezia, hematemesis, anorexia, abdominal pain, and unintentional weight loss. She was 91 pounds at her visit on 02/21/17 and today is 97 pounds. She continues to have unintentional lip smacking and has not noticed a change in those symptoms since stopping Reglan and she also continues to have severe headaches. HPI 02/21/17: Pleasant 46-year-old female who is an established [...] times a day and she is due. Parcel Post Clerk would like to stop her rivaroxaban to and start her on Lovenox prior to the procedure and would like to know when she should stop/restart Lovenox. She denies dysphagia, vomiting, melena, hematochezia, and anorexia. She has lost 8 pounds unintentionally in the last 4 months. She also reports unintentional lipsmacking and a severe headache with history of migraines at this time Review of Systems Constitutional: Negative. HENT: Positive for rhinorrhea and trouble swallowing. Eyes: Negative. Respiratory: Negative. Cardiovascular: Negative. Gastrointestinal: Positive for constipation, diarrhea and nausea. Endocrine: Negative. Genitourinary: Negative. Musculoskeletal: Positive for back pain, neck pain and neck stiffness. Skin: Negative. Allergic/Immunologic: Negative. Neurological: Positive for dizziness, light-headedness and headaches. Hematological: Negative. Psychiatric/Behavioral: Negative. All other systems reviewed and are negative. Objective: atorvastatin (LIPITOR) 40 mg tablet Take 40 mg by mouth daily. CYANOCOBALAMIN (VITAMIN B-12 PO) Take by mouth. dronabinol (MARINOL) 5 mg capsule Take 5 mg by mouth twice daily. ERGOCALCIFEROL (VITAMIN D PO) Take 1,000 Units by mouth Daily. escitalopram (LEXAPRO) 20 mg PO tablet Take 1 Tab by mouth daily. linaclotide(+) (LINZESS) 145 mcg cap capsule Take 1 capsule by mouth daily 30 minutes before breakfast. Indications: CHRONIC IDIOPATHIC CONSTIPATION MULTIVITAMINS (MULTIVITAMIN PO) Take by mouth. omeprazole [...] ADMIN INSTRUCTIONS route as directed. Indications: PRN TIZANIDINE HCL (TIZANIDINE PO) Take by mouth. topiramate (TOPAMAX) 100 mg tablet Take 1 Tab by mouth Twice Daily. ZOLPIDEM TARTRATE (AMBIEN PO) Take by mouth. Vitals: 07/29/17 1122 BP: 114/75 Pulse: 107 Resp: 18 Weight: 44.2 kg (97 lb 6.4 oz) Height: 158.8 cm (62.5") Body mass index is 17.53 kg/m. Physical Exam Constitutional: She is oriented to person, place, and time. She appears well- developed and well-nourished. HENT: Head: Normocephalic and atraumatic. Eyes: EOM are normal. Pupils are equal, round, and reactive to light. Neck: Normal range of motion. Neck supple. No tracheal deviation present. No thyromegaly present. Cardiovascular: Normal rate, regular rhythm and normal heart sounds. Pulmonary/Chest: Effort normal and breath sounds normal. Abdominal: Soft. Bowel sounds are normal. She exhibits no distension. There is no tenderness. Musculoskeletal: Normal range of motion. Neurological: She is alert and oriented to person, place, and time. Skin: Skin is warm and dry. Psychiatric: She has a normal mood and affect. Her behavior is normal. Judgment and thought content normal. Assessment and Plan: Sunitha Feldman is a 47 y.o. female female prior patient of Dr. Olivo, current patient of Dr. Nichols; with PMH of PE (currently AC on rivaroxaban/xarelto managed by outside hematology), DM (blood sugars ranging from 60-600 (per patient)), HTN, Tobaccoism, marijuana use, chronic back pain ( narcotic dependent), and SMA syndrome (J tube was previously needed) returns to the clinic for continued management of constipation (on 145mcg Linzess), abdominal pain (resolved), gastroparesis (stopped reglan d/t TD, taking promethazine and zofran), and GERD (on 40mg of Omeprazole daily). After discussion with the patient it was decided to proceed with the following: Constipation Reduce Linzess to 72 mcg of Linzess daily, patient is to take it daily for at least 3 weeks despite significant diarrhea it might cause, at the end of 3 weeks she is to call the clinic and update us on if the diarrhea is tolerable as it often improves after 2 weeks of administration Continue taking a daily probiotic Check TSH, T4/T3 Repeat colonoscopy in 2026 In the future consider repeating a bowel cleanse versus dose of Cipro for small intestinal bacterial overgrowth as colonoscopy prep significantly improved symptoms and she saw an improvement with Cipro and her symptoms in the past GERD/Bone Health Continue to take 40 mg of omeprazole 30 minutes prior to first meal the day Recheck vitamin D after increasing dose to 2000 units daily Begin taking 1200 mg of calcium daily Perform DEXA scan to evaluate bone health in the setting of multiple risk factors which contribute to poor bone density including chronic PPI use Consider reducing omeprazole from 40 mg daily to 20 mg daily in the future Gastroparesis Make another appointment with local dietitian to further discuss gastroparesis diet and caloric dense options Continue to minimize/stop taking narcotic pain medication Continue to stop/avoid Reglan Use promethazine and Zofran as infrequently as possible; only use them if unable to tolerate nausea and gastroparesis diet is not working as these medications can contribute to constipation and neurological depression Abdominal Pain Defer anesthesia/trigger point injections for now as abdominal pain has completely resolved Headaches Make appointment with neurology in the setting of severe headaches Health maintance Smoking cessation education provided to the patient, patient seems willing to try nicotine patches and/or attempt to utilize smoking cessation program, patient can further discuss with primary care provider All questions were answered. Thank you for allowing me to participate in the care of this patient. Please call GI clinic with any questions/concerns. I spent 1130 - 1230 (60 minutes) with the patient. Todays visit was prolonged due to additional time spent educating the patient on the above options of how we can proceed allowing her to make an informed decision with regard to disease processes, life style modifications, and risks vs benefits of medications. Agatha Hopkins APRN-MELI in this encounter Plan of Treatment Name Priority Associated Diagnoses Order Schedule 25-OH VITAMIN D (D2 + D3) Routine Vitamin D deficiency Expected: 2017 (Approximate), Expires: 07/29/2018 as of this encounter Visit Diagnoses Diagnosis Constipation, unspecified constipation type - Primary Chronic pain due to trauma Migraine without aura and without status migrainosus, not intractable Migraine without aura, without mention of intractable migraine without mention of status migrainosus Superior mesenteric artery syndrome (HCC) Chronic vascular insufficiency of intestine Vitamin D deficiency Unspecified vitamin D deficiency Weight loss, unintentional Loss of weight Gastroesophageal reflux disease without esophagitis Esophageal reflux Gastroparesis Smoker Tobacco use disorder Needs smoking cessation education Educational circumstance
--- OUTSIDE RECORDS SUMMARY | 2017-08-11 18:08 | XMS REPORT | Continuity of Care Document ---
Author Author [employer] Organization [facility] Address Unknown Phone Unavailable Care Team Providers Care Nursing Education Consultant Name Role Phone [employer] Unavailable Unavailable Problems Medications Allergies, Adverse Reactions, Alerts Immunizations Results Vital Signs Encounters Location Location Details Encounter Type Encounter Number Reason For Visit Attending Provider ADM Date DC Date Status Source OUTPATIENT [id number] CEM OCHOA 11/21/2016 11/21/2016 Active [facility] Marcello ELLIOTT 07/29/2017 Active [facility] OP SURGERY [id number] Active [facility] Procedures Plan of Care Social History Assessment and Plan Family History Advance Directives Functional Status
--- OUTSIDE RECORDS SUMMARY | 2017-08-11 18:11 | XMS REPORT ---
Author Author HORACE HIGGINS [facility] Address [address] [place] [address] Care Team Providers Care Group Therapy Counselor Name Role Phone HORACE HIGGINS Unavailable PROBLEMS Type Condition ICD9-CM Code [id number] Code Onset Dates Condition Status SNOMED Code Problem Type 2 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 Active 37357183 Problem Uncomplicated asthma, unspecified asthma severity J45.909 Active 413137725 Problem [facility] 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 Z79.4 Active 362361072 Problem Asthma exacerbation J45.901 Active 652495909 Problem Primary insomnia F51.01 Active 7139458 Problem Anorexia R63.0 Active 57656731 Problem Encounter for dental examination Z01.20 Active 671189475 Problem History of colon polyps Z86.010 Active 022155836 Problem Weight loss R63.4 Active 832053151 Problem Depressive disorder, not elsewhere classified 311 Active 48303569 Problem Diabetes E11.9 Active 35227828 Problem Gastroparesis K31.84 Active 306377105 Problem Neuropathy G62.9 Active 957509578 Problem Mixed hyperlipidemia E78.2 Active 734541479 Problem Back pain M54.9 Active 577582051 Problem Type 2 diabetes mellitus without complications E11.9 Active 307337832 ALLERGIES No Information SOCIAL HISTORY Never Assessed [...] 2014 Hospitalization History High blood sugar 2017 Hospitalization History DKA, vomitting-[facility] 03/05/17 Hospitalization History hospital stay at [facility] for stomach issues 2016
--- OUTSIDE RECORDS SUMMARY | 2017-08-11 18:14 | XMS REPORT ---
Author Author HORACE HIGGINS [facility] Address [address] [place] [address] Care Team Providers Care Support Team Assoc Name Role Phone HORACE HIGGINS Unavailable PROBLEMS Type Condition ICD9-CM Code [id number] Code Onset Dates Condition Status SNOMED Code Problem Type 2 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 Active 83754619 Problem Uncomplicated asthma, unspecified asthma severity J45.909 Active 264779483 Problem longterm 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 Z79.4 Active 929817370 Problem Asthma exacerbation J45.901 Active 453332429 Problem Primary insomnia F51.01 Active 7588038 Problem Anorexia R63.0 Active 12478235 Problem Encounter for dental examination Z01.20 Active 337858052 Problem History of colon polyps Z86.010 Active 637416259 Problem Weight loss R63.4 Active 617093221 Problem Depressive disorder, not elsewhere classified 311 Active 50758029 Problem Diabetes E11.9 Active 36273623 Problem Gastroparesis K31.84 Active 203861759 Problem Neuropathy G62.9 Active 341237768 Problem Mixed hyperlipidemia E78.2 Active 221274301 Problem Back pain M54.9 Active 573166614 Problem Type 2 diabetes mellitus without complications E11.9 Active 871287889 ALLERGIES No Information SOCIAL HISTORY Never Assessed PLAN OF CARE VITAL SIGNS MEDICATIONS Medication Instructions Dosage Frequency Start Date End Date Duration Status Marinol 5 mg Orally Twice a day 1 capsule before lunch and supper 12h 14 days Active RESULTS No Results PROCEDURES [...] Surgical History hysterectomy 2006 Surgical History EGD 2017 Hospitalization History Nervous breakdown 2009 Hospitalization History pulmonary emboli and pneumonia 2014 Hospitalization History High blood sugar 2017 Hospitalization History DKA, vomitting-[facility] 03/05/17 Hospitalization History hospital stay at [facility] for stomach issues 2016
--- OUTSIDE RECORDS SUMMARY | 2017-08-11 18:15 | XMS REPORT ---
Author Author HORACE HIGGINS [facility] Address [address] [place] [address] Care Team Providers Care Health Safety Coordinator Name Role Phone HORACE HIGGINS Unavailable PROBLEMS Type Condition ICD9-CM Code OHU71-[id number] Code Onset Dates Condition Status SNOMED Code Problem Type 2 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 Active 00946404 Problem Uncomplicated asthma, unspecified asthma severity J45.909 Active 023501343 Problem assisted 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 Z79.4 Active 128053784 Problem Asthma exacerbation J45.901 Active 942310175 Problem Primary insomnia F51.01 Active 3444354 Problem Anorexia R63.0 Active 50573802 Problem Encounter for dental examination Z01.20 Active 126407814 Problem History of colon polyps Z86.010 Active 555054750 Problem Weight loss R63.4 Active 709611065 Problem Depressive disorder, not elsewhere classified 311 Active 74994365 Problem Diabetes E11.9 Active 04068499 Problem Gastroparesis K31.84 Active 027598921 Problem Neuropathy G62.9 Active 935951493 Problem Mixed hyperlipidemia E78.2 Active 370242290 Problem Back pain M54.9 Active 205446566 Problem Type 2 diabetes mellitus without complications E11.9 Active 589169174 ALLERGIES No Information SOCIAL HISTORY Never Assessed PLAN OF CARE VITAL SIGNS MEDICATIONS Medication Instructions Dosage Frequency Start Date End Date Duration Status Oxycodone-Acetaminophen 10-325 MG Orally 3 times a day 1 tablet as needed 8h Jul, 28 days Active RESULTS No Results PROCEDURES [...]
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
--- OUTSIDE RECORDS SUMMARY | 2017-08-11 18:18 | XMS REPORT ---
Author Author HORACE HIGGINS [facility] Address [address] [place] [address] Care Team Providers Care Armature Inspector Name Role Phone HORACE HIGGINS Unavailable PROBLEMS Type Condition ICD9-CM Code VLF24-BR Code Onset Dates Condition Status SNOMED Code Problem Type 2 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 Active 40422000 Problem Uncomplicated asthma, unspecified asthma severity J45.909 Active 548095223 Problem custodial 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 Z79.4 Active 854440818 Problem Asthma exacerbation J45.901 Active 362894907 Problem Primary insomnia F51.01 Active 1761422 Problem Anorexia R63.0 Active 25136697 Problem Encounter for dental examination Z01.20 Active 887233224 Problem History of colon polyps Z86.010 Active 243809284 Problem Weight loss R63.4 Active 318704486 Problem Depressive disorder, not elsewhere classified 311 Active 94956376 Problem Diabetes E11.9 Active 61762989 Problem Gastroparesis K31.84 Active 654112157 Problem Neuropathy G62.9 Active 102073603 Problem Mixed hyperlipidemia E78.2 Active 215468253 Problem Back pain M54.9 Active 730668125 Problem Type 2 diabetes mellitus without complications E11.9 Active 500328717 ALLERGIES No Information SOCIAL HISTORY Never Assessed PLAN OF CARE VITAL SIGNS MEDICATIONS Medication Instructions Dosage Frequency Start Date End Date Duration Status Oxycodone-Acetaminophen 10-325 MG Orally 3 times a day 1 tablet as needed 8h September, 28 days Active RESULTS No Results PROCEDURES [...] vomitting-[facility] 03/05/17 Hospitalization History hospital stay at [facility] for stomach issues 2016
--- NOTE | 2017-08-11 18:21 | ED Back Pain ---
General Chief Complaint: Back Problems Stated Complaint: BACK PAIN/SOB Source of Information: Patient Exam Limitations: No Limitations History of Present Illness Date Seen by Provider: Aug 11, 2017 Time Seen by Provider: 18:16 Initial Comments To ER with reports of left thoracic back pain for about 2 weeks. She states that she does not have shortness of breath but she does have increased pain with inhalation. No fevers chills or cough. This pain began suddenly after a fall 2 weeks ago. She does have a history of pulmonary embolism and is on Xarelto, has not missed any doses. She is also on Percocet, Lyrica, Cymbalta, Flexeril, Zanaflex for her fibromyalgia and radiculopathy. Timing/Duration: Other (2 weeks) Severity: Moderate Allergies and Home Medications Allergies Coded Allergies: aspirin (Verified Allergy, Unknown, 10/25/13) Uncoded Allergies: NSAIDS (Allergy, Unknown, 10/25/13) COUMADIN (Adverse Reaction, Unknown, 10/25/13) VOMITS BLOOD Home Medications Acetaminophen 500 Mg Tablet, 1,000 MG PO Q4H PRN for PAIN-MILD, (Reported) TAKES 2 (500 MG) TABLETS Albuterol Sulfate 1 Puff Puff, 2 PUFF IH QID PRN for SHORTNESS OF BREATH, ( Reported) 1 PUFF = 90 MCG Atorvastatin Calcium 40 Mg Tablet, 40 MG PO HS, (Reported) Cyanocobalamin (Vitamin B-12) 1,000 Mcg Tablet, 1,000 MCG PO DAILY, (Reported) Dronabinol 5 Mg Capsule, 1 CAP PO 1200,1730, (Reported) TAKES BEFORE LUNCH AND SUPPER Escitalopram Oxalate 20 Mg Tablet, 20 MG PO HS, (Reported) Insulin Glargine,Hum.rec.anlog 100 Unit/1 Ml Insuln.pen, 15 UNIT SQ HS Prescribed by: NANNETTE SANDOVAL on 03/07/17 1306 Insulin Lispro 100 Unit/1 Ml Insuln.pen, 5 UNIT SQ AC Prescribed by: NANNETTE SANDOVAL on 03/07/17 1306 Linaclotide 145 Mcg Capsule, 145 MCG PO DAILY, (Reported) Multivitamins with Iron 1 Each Tablet, 1 TAB PO DAILY, (Reported) Omeprazole 40 Mg Capsule.dr, 40 MG PO DAILY, (Reported) Ondansetron 8 Mg Tab.rapdis, 8 MG SL Q8H PRN for NAUSEA/VOMITING-1ST LINE, ( Reported) Oxycodone HCl/Acetaminophen 1 Each Tablet, 1 TAB PO QID PRN for PAIN-MODERATE, ( Reported) Polyethylene Glycol 3350 255 Gm Powder, 17 GM PO DAILY PRN for CONSTIPATION-2ND LINE, (Reported) Potassium Chloride 20 Meq/15 Ml Liquid, 7.5 ML PO DAILY, (Reported) Pregabalin 150 Mg Capsule, 150 MG PO BID, (Reported) Promethazine HCl 25 Mg Tablet, 25 MG PO Q6H PRN for NAUSEA/VOMITING-2ND LINE, ( Reported) Rivaroxaban 20 Mg Tablet, 20 MG PO HS, (Reported) Tizanidine HCl 4 Mg Tablet, 4 MG PO BID PRN for MUSCLE SPASMS, (Reported) Patient Home Medication List Home Medication List Reviewed: Yes Constitutional: see HPI, No chills, No fever EENTM: see HPI Respiratory: no symptoms reported, No dyspnea on exertion, No hemoptysis, No short of breath Cardiovascular: no symptoms reported, No chest pain Genitourinary: no symptoms reported Musculoskeletal: no symptoms reported Skin: no symptoms reported Psychiatric/Neurological: No Symptoms Reported Past Zoirtmr-Oyertq-Rxyjia Hx Patient Social History Type Used: Cigarettes Former Smoker, Quit: Jan 28, 2017 Recent Foreign Travel: No Contact w/Someone Who Travel: No Recent Hopitalizations: No Immunizations Up To Date Tetanus Booster (TDap): Less than 5yrs PED Vaccines UTD: Yes Date of Pneumonia Vaccine: Jul 07, 2014 Date of Influenza Vaccine: Feb 23, 2015 Seasonal Allergies Seasonal Allergies: No Surgeries History of Surgeries: Yes (HERNIA, thoracentesis) Surgeries: Abdominal, Appendectomy, Hysterectomy Respiratory History of Respiratory Disorde: No Respiratory Disorders: Asthma, Pulmonary Embolism Currently Using CPAP: No Currently Using BIPAP: No Cardiovascular History of Cardiac Disorders: Yes Cardiac Disorders: Hypertension Neurological History of Neurological Disord: No Neurological Disorders: Neuropathy 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 System Hx 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 Disorders: No BACK TACKER History: Hysterectomy Genitourinary History of Genitourinary Disor: No Gastrointestinal History of Gastrointestinal Di: Yes Gastrointestinal Disorders: Gastroesophageal Reflux, Irritable Bowel Musculoskeletal History of Musculoskeletal Dis: Yes Musculoskeletal Disorders: Chronic Back Pain Endocrine History of Endocrine Disorders: Yes Endocrine Disorders: Diabetes, Insulin dep HEENT History of HEENT Disorders: Yes Hearing Impairment: Bilateral Hearing Aide Cancer History of Cancer: Yes Cancer: Ovarian Did You Recieve Any Treatments: Yes Type of Tx Receive: Surgical Intervention Psychosocial History of Psychiatric Problem: Yes Behavioral Health Disorders: Anxiety, Depression Integumentary History of Skin or Integumenta: No Blood Transfusions History of Blood Disorders: No Adverse Reaction to a Blood Tr: No Family Medical History Significant Family History: Heart Disease, Diabetes, Hypertension Family Medial History: Cardiovascular disease 19 MOTHER (CHF) G8 SISTER (CHF) Cataracts 19 MOTHER Diabetes mellitus 19 MOTHER G8 BROTHER G8 BROTHER G8 SISTER Hypertension 19 MOTHER G8 SISTER Physical Exam Vital Signs Vital Signs - First Documented 08/11/17 18:15 Temp 98.2 Pulse 101 Resp 20 B/P (MAP) 119/90 (100) Pulse Ox 100 Capillary Refill : General Appearance: No Apparent Distress, WD/WN HEENT: PERRL/EOMI, TMs Normal Neck: Full Range of Motion, Normal Inspection Cardiovascular: Regular Rate, Rhythm, Normal Peripheral Pulses Respiratory: Normal Breath Sounds, No Accessory Muscle Use, No Respiratory Distress Gastrointestinal: Normal Bowel Sounds, Non Tender, Soft Extremity: Normal Capillary Refill, Normal Inspection Neurologic/Psychiatric: Alert, Oriented x3 Skin: Normal Color, Warm/Dry Progress/Results/Core Measures Results/Orders Lab Results Laboratory Tests Test 08/11/17 19:03 Range/Units White Blood Count 9.4 4.3-11.0 10^3/uL Red Blood Count 4.36 4.35-5.85 10^6/uL Hemoglobin 12.5 11.5-16.0 G/DL Hematocrit 37 35-52 % Mean Corpuscular Volume 85 80-99 FL Mean Corpuscular Hemoglobin 29 25-34 PG Mean Corpuscular Hemoglobin Concent 34 32-36 G/DL Red Cell Distribution Width 13.7 10.0-14.5 % Platelet Count 286 130-400 10^3/uL Mean Platelet Volume 11.9 H 7.4-10.4 FL Neutrophils (%) (Auto) 50 42-75 % Lymphocytes (%) (Auto) 40 12-44 % Monocytes (%) (Auto) 7 0-12 % Eosinophils (%) (Auto) 4 0-10 % Basophils (%) (Auto) 0 0-10 % Neutrophils # (Auto) 4.7 1.8-7.8 X 10^3 Lymphocytes # (Auto) 3.7 1.0-4.0 X 10^3 Monocytes # (Auto) 0.6 0.0-1.0 X 10^3 Eosinophils # (Auto) 0.3 0.0-0.3 10^3/uL Basophils # (Auto) 0.0 0.0-0.1 10^3/uL Sodium Level 140 135-145 MMOL/L Potassium Level 3.6 3.6-5.0 MMOL/L Chloride Level 105 98-107 MMOL/L Carbon Dioxide Level 24 21-32 MMOL/L Anion Gap 11 5-14 MMOL/L Blood Urea Nitrogen 11 7-18 MG/DL Creatinine 0.80 0.60-1.30 MG/DL Estimat Glomerular Filtration Rate > 60 BUN/Creatinine Ratio 14 Glucose Level 259 H 70-105 MG/DL Calcium Level 9.2 8.5-10.1 MG/DL My Orders Orders - REGINA DELONG APRN Chest Pa/Lat (2 View) (08/11/17 18:15) Ct Angio Chest W (08/11/17 18:51) Fentanyl Injection (Sublimaze Injection (08/11/17 19:00) Cbc With Automated Diff (08/11/17 18:57) Basic Metabolic Panel (08/11/17 18:57) Iohexol Injection (Omnipaque 350 Mg/Ml 1 (08/11/17 19:15) Ns (Ivpb) (Sodium Chloride 0.9% Ivpb Bag (08/11/17 19:15) Accucheck Stat ONCE (08/11/17 19:27) Ondansetron Injection (Zofran Injectio (08/11/17 19:30) Medications Given in ED Current Medications Medications Dose Ordered Sig/Jenifer Route Start Time Stop Time Status Last Admin Dose Admin Fentanyl Citrate 50 mcg ONCE ONCE IVP 08/11/17 19:00 08/11/17 19:01 DC 08/11/17 19:06 50 MCG Iohexol 150 ml ONCE ONCE IV 08/11/17 19:15 08/11/17 20:05 DC 08/11/17 19:18 125 ML Ondansetron HCl 4 mg ONCE ONCE IVP 08/11/17 19:30 08/11/17 19:31 DC 08/11/17 19:35 4 MG Sodium Chloride 100 ml ONCE ONCE IV 08/11/17 19:15 08/11/17 20:05 DC 08/11/17 19:18 100 ML Vital Signs/I&O Vital Sign - Last 12Hours 08/11/17 08/11/17 18:15 20:04 Temp 98.2 Pulse 101 100 Resp 20 18 B/P (MAP) 119/90 (100) 112/99 Pulse Ox 100 99 Departure Impression Impression: Primary Impression: Thoracic back pain Disposition: HOME, SELF-CARE Condition: Stable Departure-Patient Inst. Decision time for Depature: 19:32 Referrals: HORACE HIGGINS MD (PCP/Family) Primary Care Physician Patient Instructions: Upper Back Pain (DC) Add. Discharge Instructions: 1. Follow-up with your doctor next week 2. Return to ER for any concerns 3. Images Torso/Trunk 1 - Tenderness REGINA DELONG APRN Aug 11, 2017 18:21
--- NOTE | 2017-08-11 18:49 | Diagnostic Imaging Report ---
EXAMINATION: PA and lateral chest. COMPARISON: Comparison is made to a prior study from March 06, 2017. INDICATION: Lower thoracic back pain. Painful inspirations. FINDINGS: There are chronic interstitial changes present within the lungs. The diaphragms are flattened suggesting a component of air trapping. There is no focal infiltrate. There is no effusion or pneumothorax. Heart size appears appropriate. No evidence of failure. No acute or suspicious osseous abnormality demonstrated. IMPRESSION: 1. Chronic pulmonary interstitial changes without radiographic evidence of an acute cardiopulmonary process. Dictated by: Dictated on workstation # [id number]
[2017-08-11] MEDS ORDERED: fentaNYL INJECTION 100 MCG/2 ML AMP IVP ONE (19:00)
[2017-08-11] MEDS ORDERED: NS 100 ML (IVPB) BAG IV ONE (19:15)
[2017-08-11] MEDS ORDERED: IOHEXOL 350 MG/ML 150 ML (OMNIPAQUE 350) VIAL IV ONE (19:15)
[2017-08-11 19:23] LABS: BASOPHILS % (AUTO) 0 % (0-10); EOSINOPHILS # (AUTO) 0.3 10^3/uL (0.0-0.3); EOSINOPHILS % (AUTO) 4 % (0-10); HEMATOCRIT 37 % (35-52); HEMOGLOBIN 12.5 G/DL (11.5-16.0); LYMPHOCYTES # (AUTO) 3.7 X 10^3 (1.0-4.0); LYMPHOCYTES % (AUTO) 40 % (12-44); MEAN CORPUSCULAR HEMOGLOBIN 29 PG (25-34); MEAN CORPUSCULAR HGB CONC 34 G/DL (32-36); MEAN CORPUSCULAR VOLUME 85 FL (80-99); MEAN PLATELET VOLUME 11.9 FL (7.4-10.4); MONOCYTES # (AUTO) 0.6 X 10^3 (0.0-1.0); MONOCYTES % (AUTO) 7 % (0-12); NEUTROPHILS # (AUTO) 4.7 X 10^3 (1.8-7.8); NEUTROPHILS % (AUTO) 50 % (42-75); PLATELET COUNT 286 10^3/uL (130-400); RED BLOOD COUNT 4.36 10^6/uL (4.35-5.85); RED CELL DISTRIBUTION WIDTH 13.7 % (10.0-14.5); WHITE BLOOD COUNT 9.4 10^3/uL (4.3-11.0)
[2017-08-11 19:28] LABS: BUN/CREATININE RATIO 14; CALCIUM 9.2 MG/DL (8.5-10.1); CARBON DIOXIDE 24 MMOL/L (21-32); CHLORIDE 105 MMOL/L (98-107); GFR ESTIMATED > 60; GLUCOSE 259 MG/DL (70-105); POTASSIUM 3.6 MMOL/L (3.6-5.0); SODIUM 140 MMOL/L (135-145)
[2017-08-11] MEDS ORDERED: ONDANSETRON 4 MG/2 ML (SDV) Z0FRAN IVP ONE (19:30)
--- NOTE | 2017-08-11 19:50 | Diagnostic Imaging Report ---
PROCEDURE: CT angiography of the chest with contrast. TECHNIQUE: Multiple contiguous axial images were obtained through the chest after uneventful bolus administration of intravenous contrast. Reconstructed CTA MIP acquisitions were also performed. INDICATION: Thoracic back pain. Pain with breathing. Reported fall 2 weeks prior. Comparison is made to chest radiograph from the same day. FINDINGS: Thoracic aorta unremarkable without evidence of dissection or aneurysm. There is adequate opacification of the pulmonary arteries. There is no filling defect within the pulmonary arteries to suggest pulmonary embolism. Heart size normal. There is no mediastinal or hilar adenopathy demonstrated. Lungs demonstrate no focal infiltrate or consolidation. There is no effusion. There is some minimal dependent atelectasis. Visualized portions of the upper abdomen demonstrate some gastric distention but no acute process. No rib fractures are evident. There is some superior endplate wedging of the T3, T4 and T5 which are age indeterminate. IMPRESSION: 1. No CT angiographic evidence of pulmonary embolism. 2. Thoracic aorta unremarkable. 3. Other than minimal dependent atelectasis the lungs are clear 4. No rib fractures evident. There is some age indeterminate superior endplate wedging of T3, T4 and T5. There are no definitive acute rib fractures. If the patient has upper thoracic back pain, MRI could be considered to assess for acuity. Dictated by: Dictated on workstation # [id number]
[2017-08-11 20:04] VITALS: BP 112/99
== END 2017-08-11 20:05 | disposition home or self-care (01) ==
LOC: EDUNIT# 18:02 → ER 18:03
DX: M54.6 Pain in thoracic spine (principal); F41.9 Anxiety disorder, unspecified; E11.40 Type 2 diabetes mellitus with diabetic neuropathy, unspecified; F32.9 Major depressive disorder, single episode, unspecified; K21.9 Gastro-esophageal reflux disease without esophagitis; J45.909 Unspecified asthma, uncomplicated; Z90.49 Acquired absence of other specified parts of digestive tract; Z87.891 Personal history of nicotine dependence; Z90.710 Acquired absence of both cervix and uterus; Z87.19 Personal history of other diseases of the digestive system; Z85.43 Personal history of malignant neoplasm of ovary; Z79.4 Long term (current) use of insulin; Z88.6 Allergy status to analgesic agent
CPT/HCPCS: 36415; 71046; 71275; 80048; 85025; 96374; 96375

== ENCOUNTER → 2017-09-02 | Outpatient (CLI) | payer MEDICARE, MEDICAID ==
[2017-09-02 14:58] LABS: TSH (THYROID ANALYZER) 0.1 UIU/ML (0.35-4.94)
[2017-09-02 15:54] LABS: FREE T4 (FREE THYROXINE) 0.94 NG/DL (0.70-1.48)
== END ==
LOC: LAB 13:40
PROVIDERS: ATTEND Nurse Practitioner
DX: E55.9 Vitamin D deficiency, unspecified (principal); K59.00 Constipation, unspecified; R10.9 Unspecified abdominal pain; R11.2 Nausea with vomiting, unspecified
CPT/HCPCS: 36415; 82306; 84439; 84443

== ENCOUNTER → 2017-09-18 | Outpatient (CLI) | payer MEDICARE, MEDICAID ==
[~2017-09-18] MED LIST changes: -POTA20LI PO; +POTA20LI3 PO
--- NOTE | 2017-09-18 18:00 | Diagnostic Imaging Report ---
INDICATION: Screening for osteoporosis. EXAMINATION: DEXA scan. COMPARISON: There are no prior studies available for comparison. FINDINGS: The bone mineral density of the hips and spine was measured. The T-score for the spine is -1.6. This is identical to the prior exam. The T-score for each hip is -1.8. All of these values fall within the range of osteopenia. IMPRESSION: There is osteopenia of the hips and spine. Dictated by: Dictated on workstation # [id number]
== END ==
LOC: RAD 11:29
PROVIDERS: ATTEND Nurse Practitioner
DX: Z13.820 Encounter for screening for osteoporosis (principal); M85.88 Other specified disorders of bone density and structure, other site; E55.9 Vitamin D deficiency, unspecified; F17.210 Nicotine dependence, cigarettes, uncomplicated; Z78.0 Asymptomatic menopausal state; Z51.81 Encounter for therapeutic drug level monitoring; Z79.899 Other long term (current) drug therapy
CPT/HCPCS: 77080

== ENCOUNTER 2017-11-06 14:41 | Outpatient (RCR) | payer MEDICARE, MEDICAID ==
[2017-11-06 14:56] LABS: BASOPHILS % (AUTO) 0 % (0-10); EOSINOPHILS # (AUTO) 0.4 10^3/uL (0.0-0.3); EOSINOPHILS % (AUTO) 4 % (0-10); HEMATOCRIT 40 % (35-52); HEMOGLOBIN 13.5 G/DL (11.5-16.0); LYMPHOCYTES # (AUTO) 3.7 X 10^3 (1.0-4.0); LYMPHOCYTES % (AUTO) 39 % (12-44); MEAN CORPUSCULAR HEMOGLOBIN 29 PG (25-34); MEAN CORPUSCULAR HGB CONC 33 G/DL (32-36); MEAN CORPUSCULAR VOLUME 85 FL (80-99); MEAN PLATELET VOLUME 10.6 FL (7.4-10.4); MONOCYTES # (AUTO) 0.6 X 10^3 (0.0-1.0); MONOCYTES % (AUTO) 6 % (0-12); NEUTROPHILS # (AUTO) 4.8 X 10^3 (1.8-7.8); NEUTROPHILS % (AUTO) 50 % (42-75); PLATELET COUNT 359 10^3/uL (130-400); RED BLOOD COUNT 4.74 10^6/uL (4.35-5.85); RED CELL DISTRIBUTION WIDTH 13.1 % (10.0-14.5); WHITE BLOOD COUNT 9.5 10^3/uL (4.3-11.0)
[2017-11-06 15:19] LABS: ALANINE AMINOTRANSFERASE 15 U/L (0-55); ALBUMIN 4.4 GM/DL (3.2-4.5); ALKALINE PHOSPHATASE 124 U/L (40-136); BILIRUBIN,TOTAL 0.4 MG/DL (0.1-1.0); BUN/CREATININE RATIO 14; CALCIUM 11.5 MG/DL (8.5-10.1); CARBON DIOXIDE 29 MMOL/L (21-32); CHLORIDE 105 MMOL/L (98-107); CREATININE SERUM 0.92 MG/DL (0.60-1.30); GFR ESTIMATED > 60; GLUCOSE 100 MG/DL (70-105); SODIUM 145 MMOL/L (135-145); TOTAL PROTEIN 7.9 GM/DL (6.4-8.2)
== END 2018-02-04 | disposition home or self-care (01) ==
LOC: ONC 14:41
PROVIDERS: ATTEND Internal Medicine Hematology & Oncology
DX: I27.82 Chronic pulmonary embolism (principal); D64.9 Anemia, unspecified; E11.43 Type 2 diabetes mellitus with diabetic autonomic (poly)neuropathy; F32.9 Major depressive disorder, single episode, unspecified; F17.210 Nicotine dependence, cigarettes, uncomplicated; K62.5 Hemorrhage of anus and rectum; Z79.01 Long term (current) use of anticoagulants; Z79.899 Other long term (current) drug therapy
CPT/HCPCS: 36415; 80053; 85025; 99213

== ENCOUNTER 2018-01-10 12:37 | Emergency (ER) | payer MEDICARE, MEDICAID ==
[~2018-01-10] VITALS: Ht 157.5 cm; Wt 49.0 kg
--- NOTE | 2018-01-10 13:59 | ED Abdominal Pain ---
General Chief Complaint: Abdominal/GI Problems Stated Complaint: ABD PAIN Nursing Triage Note: PT AMBULATES TO ROOM 5 W CANE, PT STATES HAS ABD PAIN SINCE YESTERDAY, PT STATES HAS IBS. PT STATES HAS BEEN HAVING N/V/D, STATES HAS BM THIS AM. Sepsis Screen: No Definite Risk Source of Information: Patient, Family Exam Limitations: No Limitations History of Present Illness Date Seen by Provider: Jan 10, 2018 Time Seen by Provider: 13:56 Initial Comments This 47-year-old female presents complaining of severe lower abdominal pain with associated diarrhea. Patient has had a dull pain over the lower abdomen for the last 3 days. It has been progressive in nature. Patient had watery diarrhea this morning. Patient denies fever, chills, vomiting of blood or associated melena. She has had no bloody stools. She denies dysuria or frequency. The patient's past medical history includes multiple previous surgeries for umbilical hernia repair several times, appendectomy, and polypectomy Allergies and Home Medications Allergies Coded Allergies: aspirin (Verified Allergy, Unknown, 10/25/13) Uncoded Allergies: NSAIDS (Allergy, Unknown, 10/25/13) COUMADIN (Adverse Reaction, Unknown, 10/25/13) VOMITS BLOOD Home Medications Acetaminophen 500 Mg Tablet, 1,000 MG PO Q4H PRN for PAIN-MILD, (Reported) TAKES 2 (500 MG) TABLETS Albuterol Sulfate 1 Puff Puff, 2 PUFF IH QID PRN for SHORTNESS OF BREATH, ( Reported) 1 PUFF = 90 MCG Atorvastatin Calcium 40 Mg Tablet, 40 MG PO HS, (Reported) Cyanocobalamin (Vitamin B-12) 1,000 Mcg Tablet, 1,000 MCG PO DAILY, (Reported) Dronabinol 5 Mg Capsule, 1 CAP PO 1200,1730, (Reported) TAKES BEFORE LUNCH AND SUPPER Escitalopram Oxalate 20 Mg Tablet, 20 MG PO HS, (Reported) Insulin Glargine,Hum.rec.anlog 100 Unit/1 Ml Insuln.pen, 15 UNIT SQ HS Prescribed by: NANNETTE SANDOVAL on 03/07/17 1306 Insulin Lispro 100 Unit/1 Ml Insuln.pen, 5 UNIT SQ AC Prescribed by: NANNETTE SANDOVAL on 03/07/17 1306 Linaclotide 145 Mcg Capsule, 145 MCG PO DAILY, (Reported) Multivitamins with Iron 1 Each Tablet, 1 TAB PO DAILY, (Reported) Omeprazole 40 Mg Capsule.dr, 40 MG PO DAILY, (Reported) Ondansetron 8 Mg Tab.rapdis, 8 MG SL Q8H PRN for NAUSEA/VOMITING-1ST LINE, ( Reported) Oxycodone HCl/Acetaminophen 1 Each Tablet, 1 TAB PO QID PRN for PAIN-MODERATE, ( Reported) Polyethylene Glycol 3350 255 Gm Powder, 17 GM PO DAILY PRN for CONSTIPATION-2ND LINE, (Reported) Potassium Chloride 20 Meq/15 Ml Liquid, 7.5 ML PO DAILY, (Reported) Pregabalin 150 Mg Capsule, 150 MG PO BID, (Reported) Promethazine HCl 25 Mg Tablet, 25 MG PO Q6H PRN for NAUSEA/VOMITING-2ND LINE, ( Reported) Rivaroxaban 20 Mg Tablet, 20 MG PO HS, (Reported) Tizanidine HCl 4 Mg Tablet, 4 MG PO BID PRN for MUSCLE SPASMS, (Reported) Patient Home Medication List Home Medication List Reviewed: Yes Review of Systems Constitutional: No chills, No fever EENTM: No Blurred Vision Respiratory: Denies Cough Cardiovascular: Denies Chest Pain Gastrointestinal: Abdomen Distended, Diarrhea, Nausea; Denies Rectal Bleeding; Vomiting Genitourinary: Denies Burning, Denies Frequency Musculoskeletal: No back pain, No joint swelling Skin: No change in color, No rash Psychiatric/Neurological: No Symptoms Reported Endocrine: No Symptoms Reported Hematologic/Lymphatic: No Symptoms Reported Past Zdcoxlt-Rsqywd-Nckyzg Hx Past Med/Social Hx: Reviewed Nursing Past Med/Soc Hx Patient Social History Alcohol Use: Denies Use Recreational Drug Use: No Smoking Status: Current Everyday Smoker Type Used: Cigarettes Former Smoker, Quit: Jan 28, 2017 Recent Foreign Travel: No Contact w/Someone Who Travel: No Recent Infectious Disease Expo: No Recent Hopitalizations: No (SEE LIST FOR EXTENSIVE HX) Physical Abuse: No Sexual Abuse: No Immunizations Up To Date Tetanus Booster (TDap): Less than 5yrs PED Vaccines UTD: Yes Date of Pneumonia Vaccine: Jul 07, 2014 Date of Influenza Vaccine: Feb 23, 2015 Seasonal Allergies Seasonal Allergies: No Past Medical History Surgeries: Yes (HERNIA, thoracentesis, UPPER/LOWER GI COPE) Abdominal, Appendectomy, Hysterectomy Respiratory: No Asthma, Pulmonary Embolism Currently Using CPAP: No Currently Using BIPAP: No Cardiac: Yes Hypertension Neurological: No Neuropathy 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 Genitourinary: No Gastrointestinal: Yes Gastroesophageal Reflux, Obstructive Bowel, Irritable Bowel Musculoskeletal: Yes Fibromyalgia, Chronic Back Pain Endocrine: Yes Diabetes, Insulin dep HEENT: Yes Hearing Impairment: Bilateral Hearing Aide Cancer: Yes Ovarian Did You Recieve Any Treatments: Yes What Type of Treatment Did You: Surgical Intervention Psychosocial: Yes Anxiety, Depression Nursing Suicide Risk Score: 0 Integumentary: No Blood Disorders: No Adverse Reaction/Blood Tranf: No Family Medical History Cardiovascular disease 19 MOTHER (CHF) G8 SISTER (CHF) Cataracts 19 MOTHER Diabetes mellitus 19 MOTHER G8 BROTHER G8 BROTHER G8 SISTER Hypertension 19 MOTHER G8 SISTER Heart Disease, Diabetes, Hypertension Physical Exam Vital Signs Vital Signs - First Documented 01/10/18 13:00 Temp 97.9 Pulse 97 Resp 18 B/P (MAP) 120/84 (96) Pulse Ox 100 Capillary Refill : Less Than 3 Seconds Height/Weight/BMI Height: 5'2.00" Weight: 108lbs. 1.0oz. [age]yo; 14.8 BMI Method:Stated General Appearance: mild distress HEENT: PERRL/EOMI, normal ENT inspection Neck: supple, normal inspection Respiratory: chest non-tender, lungs clear, normal breath sounds Cardiovascular: normal peripheral pulses, regular rate, rhythm, no edema Gastrointestinal: guarding, tenderness (there is marked tenderness greatest in the lower abdomen.) Extremities: normal range of motion, non-tender, normal inspection Back: normal inspection, no CVA tenderness, no vertebral tenderness Neurologic/Psychiatric: no motor/sensory deficits, alert, normal mood/affect, oriented x 3 Skin: normal color, warm/dry Progress/Results/Core Measures Results/Orders Lab Results Laboratory Tests Test 01/10/18 13:25 01/10/18 13:56 Range/Units White Blood Count 7.3 4.3-11.0 10^3/uL Red Blood Count 4.34 L 4.35-5.85 10^6/uL Hemoglobin 12.1 11.5-16.0 G/DL Hematocrit 38 35-52 % Mean Corpuscular Volume 86 80-99 FL Mean Corpuscular Hemoglobin 28 25-34 PG Mean Corpuscular Hemoglobin Concent 32 32-36 G/DL Red Cell Distribution Width 13.5 10.0-14.5 % Platelet Count 302 130-400 10^3/uL Mean Platelet Volume 11.1 H 7.4-10.4 FL Neutrophils (%) (Auto) 49 42-75 % Lymphocytes (%) (Auto) 39 12-44 % Monocytes (%) (Auto) 9 0-12 % Eosinophils (%) (Auto) 4 0-10 % Basophils (%) (Auto) 0 0-10 % Neutrophils # (Auto) 3.6 1.8-7.8 X 10^3 Lymphocytes # (Auto) 2.8 1.0-4.0 X 10^3 Monocytes # (Auto) 0.6 0.0-1.0 X 10^3 Eosinophils # (Auto) 0.3 0.0-0.3 10^3/uL Basophils # (Auto) 0.0 0.0-0.1 10^3/uL Sodium Level 141 135-145 MMOL/L Potassium Level 4.1 3.6-5.0 MMOL/L Chloride Level 111 H 98-107 MMOL/L Carbon Dioxide Level 21 21-32 MMOL/L Anion Gap 9 5-14 MMOL/L Blood Urea Nitrogen 9 7-18 MG/DL Creatinine 0.78 0.60-1.30 MG/DL Estimat Glomerular Filtration Rate > 60 BUN/Creatinine Ratio 12 Glucose Level 110 H 70-105 MG/DL Calcium Level 9.3 8.5-10.1 MG/DL Corrected Calcium 9.5 8.5-10.1 MG/DL Total Bilirubin 0.2 0.1-1.0 MG/DL Aspartate Amino Transf (AST/SGOT) 23 5-34 U/L Alanine Aminotransferase (ALT/SGPT) 14 0-55 U/L Alkaline Phosphatase 102 40-136 U/L Total Protein 6.7 6.4-8.2 GM/DL Albumin 3.7 3.2-4.5 GM/DL Lipase 14 8-78 U/L Urine Color YELLOW Urine Clarity CLEAR Urine pH 7 5-9 Urine Specific [place] 1.005 L 1.016-1.022 Urine Protein 1+ H NEGATIVE Urine Glucose (UA) NEGATIVE NEGATIVE Urine Ketones NEGATIVE NEGATIVE Urine Nitrite NEGATIVE NEGATIVE Urine Bilirubin NEGATIVE NEGATIVE Urine Urobilinogen NORMAL NORMAL MG/DL Urine Leukocyte Esterase NEGATIVE NEGATIVE Urine RBC (Auto) NEGATIVE NEGATIVE Urine RBC NONE /HPF Urine WBC NONE /HPF Urine Squamous Epithelial Cells NONE /HPF Urine Crystals NONE /LPF Urine Bacteria NEGATIVE /HPF Urine Casts NONE /LPF Urine Mucus NEGATIVE /LPF Urine Culture Indicated NO My Orders Orders - JERMAN LEWIS MD Cbc With Automated Diff (01/10/18 13:43) Comprehensive Metabolic Panel (01/10/18 13:43) Ua Culture If Indicated (01/10/18 13:43) Ct Abdomen/Pelvis Wo (01/10/18 13:43) Ondansetron Injection (Zofran Injectio (01/10/18 14:00) Fentanyl Injection (Sublimaze Injection (01/10/18 14:00) Ns Iv 1000 Ml (Sodium Chloride 0.9%) (01/10/18 14:00) Lipase (01/10/18 14:58) Medications Given in ED Current Medications Medications Dose Ordered Sig/Jenifer Route Start Time Stop Time Status Last Admin Dose Admin Fentanyl Citrate 50 mcg ONCE ONCE IVP 01/10/18 14:00 01/10/18 14:01 DC 01/10/18 14:13 50 MCG Ondansetron HCl 4 mg ONCE ONCE IVP 01/10/18 14:00 01/10/18 14:01 DC 01/10/18 14:13 4 MG Vital Signs/I&O 01/10/18 13:00 Temp 97.9 Pulse 97 Resp 18 B/P (MAP) 120/84 (96) Pulse Ox 100 Blood Pressure Mean: 96 Progress Progress Note : Time: 15:45 Progress Note Patient's laboratory and CT studies were unremarkable. Patient's pain abated and she was able to sleep after receiving IV fentanyl and Zofran. Time discharged based pain abated. I patient follow-up with her nurse behavioral health care on Friday and return if any problems or questions. Departure Impression Primary Impression: Abdominal pain Qualified Codes: R10.30 - Lower abdominal pain, unspecified Disposition: HOME, SELF-CARE Condition: Improved Departure-Patient Inst. Decision time for Depature: 15:46 Referrals: HORACE HIGGINS MD (PCP/Family) Primary Care Physician Patient Instructions: Acute Abdomen (Belly Pain), Adult (DC) Add. Discharge Instructions: Follow-up with Dr. Higgins Friday for further evaluation. Return if any problems or questions. All discharge instructions reviewed with patient and/or family. Voiced understanding. JERMAN LEWIS MD Jan 10, 2018 13:59
[2018-01-10] MEDS ORDERED: fentaNYL INJECTION 100 MCG/2 ML AMP IVP ONE (14:00)
[2018-01-10] MEDS ORDERED: NS IV 1000 ML 1,000 ML IV SCH (14:00)
[2018-01-10] MEDS ORDERED: ONDANSETRON 4 MG/2 ML (SDV) Z0FRAN IVP ONE (14:00)
[2018-01-10 14:05] LABS: BASOPHILS % (AUTO) 0 % (0-10); EOSINOPHILS # (AUTO) 0.3 10^3/uL (0.0-0.3); EOSINOPHILS % (AUTO) 4 % (0-10); HEMATOCRIT 38 % (35-52); HEMOGLOBIN 12.1 G/DL (11.5-16.0); LYMPHOCYTES # (AUTO) 2.8 X 10^3 (1.0-4.0); LYMPHOCYTES % (AUTO) 39 % (12-44); MEAN CORPUSCULAR HEMOGLOBIN 28 PG (25-34); MEAN CORPUSCULAR HGB CONC 32 G/DL (32-36); MEAN CORPUSCULAR VOLUME 86 FL (80-99); MEAN PLATELET VOLUME 11.1 FL (7.4-10.4); MONOCYTES # (AUTO) 0.6 X 10^3 (0.0-1.0); MONOCYTES % (AUTO) 9 % (0-12); NEUTROPHILS # (AUTO) 3.6 X 10^3 (1.8-7.8); NEUTROPHILS % (AUTO) 49 % (42-75); PLATELET COUNT 302 10^3/uL (130-400); RED BLOOD COUNT 4.34 10^6/uL (4.35-5.85); RED CELL DISTRIBUTION WIDTH 13.5 % (10.0-14.5); WHITE BLOOD COUNT 7.3 10^3/uL (4.3-11.0)
[2018-01-10 14:07] LABS: BILIRUBIN,URINE NEGATIVE (NEGATIVE); CLARITY,URINE CLEAR; COLOR,URINE YELLOW; GLUCOSE, URINE (UA) NEGATIVE (NEGATIVE); KETONES,URINE NEGATIVE (NEGATIVE); LEUKOCYTE ESTERASE ,URINE NEGATIVE (NEGATIVE); NITRITE,URINE NEGATIVE (NEGATIVE); PH,URINE 7 (5-9); PROTEIN,URINE 1+ (NEGATIVE); UROBILINOGEN,URINE NORMAL (NORMAL)
[2018-01-10 14:17] LABS: BACTERIA,URINE NEGATIVE /HPF
[2018-01-10 14:18] LABS: ALANINE AMINOTRANSFERASE 14 U/L (0-55); ALBUMIN 3.7 GM/DL (3.2-4.5); ALKALINE PHOSPHATASE 102 U/L (40-136); BILIRUBIN,TOTAL 0.2 MG/DL (0.1-1.0); BUN/CREATININE RATIO 12; CALCIUM 9.3 MG/DL (8.5-10.1); CARBON DIOXIDE 21 MMOL/L (21-32); CHLORIDE 111 MMOL/L (98-107); CREATININE SERUM 0.78 MG/DL (0.60-1.30); GFR ESTIMATED > 60; GLUCOSE 110 MG/DL (70-105); POTASSIUM 4.1 MMOL/L (3.6-5.0); SODIUM 141 MMOL/L (135-145); TOTAL PROTEIN 6.7 GM/DL (6.4-8.2)
--- NOTE | 2018-01-10 14:58 | Diagnostic Imaging Report ---
PROCEDURE: CT abdomen and pelvis without contrast. TECHNIQUE: Multiple contiguous axial images were obtained through the abdomen and pelvis without the use of intravenous contrast. INDICATION: Complaining of left-sided pain and umbilical pain for the last 2 days. History of hernia repair. Hysterectomy and appendectomy in the past. Polyps removed from the abdomen and colon. History of ovarian cancer. COMPARISON: 03/05/2017 FINDINGS: The nonopacified abdominal viscera are limited due to the lack of contrast. No gross abnormality is appreciated within the spleen or liver. The gallbladder is distended. There is no surrounding inflammatory change. Hyperdensities to the left of the gallbladder likely lie within the stomach perhaps recently swallowed material. The pancreas is not well evaluated without contrast. Its visualized aspects are grossly unremarkable. The adrenal glands, unremarkable. There are no ureteral stones on either side. Extrarenal pelves noted bilaterally. No significant nephrolithiasis is seen. Calcifications over the expected course of the ureters, likely all postoperative in nature or areas of phleboliths. These findings are similar to previous examination. There is minimal free fluid in the pelvis which is most likely physiologic. There are findings of moderate constipation throughout the colon but no surrounding inflammatory change is appreciated. A few minimally prominent small bowel loops in the mid abdomen are noted and nonspecific, perhaps due to a mild ileus. No obstruction is seen at this time. The visualized lung bases demonstrate chronic findings with no acute abnormality appreciated. There is no acute osseous abnormality either. IMPRESSION: 1. Diffuse chronic findings, as noted above. Limitations due to the lack of IV contrast. 2. No nephrolithiasis or hydronephrosis with no ureteral stones appreciated 3. Findings of constipation with other incidental changes, as discussed above. Dictated by: Dictated on workstation # [id number]
[2018-01-10 15:54] VITALS: BP 120/84
[2018-01-10] MEDS ORDERED: PEN G BENZ (BICILLIN LA) 1.2 M UN/2 ML SYR IM ONE (16:00)
== END 2018-01-10 16:02 | disposition home or self-care (01) ==
LOC: EDUNIT# 12:37 → ER 12:37
DX: R10.30 Lower abdominal pain, unspecified (principal); J45.909 Unspecified asthma, uncomplicated; I10 Essential (primary) hypertension; K21.9 Gastro-esophageal reflux disease without esophagitis; E11.42 Type 2 diabetes mellitus with diabetic polyneuropathy; F41.9 Anxiety disorder, unspecified; F32.9 Major depressive disorder, single episode, unspecified; Z85.43 Personal history of malignant neoplasm of ovary; Z82.49 Family history of ischemic heart disease and other diseases of the circulatory system; Z87.19 Personal history of other diseases of the digestive system; Z88.6 Allergy status to analgesic agent; Z88.8 Allergy status to other drugs, medicaments and biological substances; Z98.890 Other specified postprocedural states; Z90.89 Acquired absence of other organs; Z86.010 Personal history of colon polyps; Z79.51 Long term (current) use of inhaled steroids; Z79.4 Long term (current) use of insulin; Z79.01 Long term (current) use of anticoagulants; Z87.891 Personal history of nicotine dependence; Z90.710 Acquired absence of both cervix and uterus; Z86.718 Personal history of other venous thrombosis and embolism
CPT/HCPCS: 36415; 74176; 80053; 81000; 83690; 85025

== ENCOUNTER 2018-01-27 15:06 | Emergency (ER) | payer MEDICARE, MEDICAID ==
[~2018-01-27] VITALS: Ht 157.5 cm; Wt 49.0 kg
[2018-01-27] MEDS ORDERED: KETOROLAC 60 MG/2 ML VIAL IM ONE (15:30)
[2018-01-27] MEDS ORDERED: ORPHENADRINE 60 MG/2 ML (NORFLEX) AMP IM ONE (15:30)
--- NOTE | 2018-01-27 16:19 | Diagnostic Imaging Report ---
INDICATION: Left shoulder pain. EXAMINATION: AP, oblique, and transscapular views of the left shoulder are obtained. FINDINGS: No fracture or acute bony abnormality is seen. There is no dislocation. IMPRESSION: Negative left shoulder. Dictated by: Dictated on workstation # [id number]
--- NOTE | 2018-01-27 16:37 | ED General ---
General Chief Complaint: General Problems/Pain Stated Complaint: L ARM PAIN SHOOTING FROM SHOULDER TO HAND Nursing Triage Note: AMB TO ROOM C/O PAIN IN R SHOULDR AND ARM DENIES CHEST PAIN AND SOA. PAIN IN ARM WORSE WHEN MOVING IT. OXYCODONE HELPS,BUT DOES NOT TAKE PAIN AWAY COMPLETLEY Nursing Sepsis Screen: No Definite Risk History of Present Illness Date Seen by Provider: Jan 27, 2018 Time Seen by Provider: 15:25 Initial Comments Patient is a 47-year-old female who presents to the emergency room with complains of pain in her left shoulder and arm for one week. She denies chest pain and shortness of breath. The pain is worse in the arm when she moves it. Patient has oxycodone at home for chronic pain but does not take the pain away completely. Timing/Duration: 3-4 Days Associated Systoms: No Chest Pain, No Cough, No Diaphoresis, No Nausea/Vomiting , No Shortness of Air Allergies and Home Medications Allergies Coded Allergies: aspirin (Verified Allergy, Unknown, 10/25/13) Uncoded Allergies: NSAIDS (Allergy, Unknown, 10/25/13) COUMADIN (Adverse Reaction, Unknown, 10/25/13) VOMITS BLOOD Home Medications Acetaminophen 500 Mg Tablet, 1,000 MG PO Q4H PRN for PAIN-MILD, (Reported) TAKES 2 (500 MG) TABLETS Albuterol Sulfate 1 Puff Puff, 2 PUFF IH QID PRN for SHORTNESS OF BREATH, ( Reported) 1 PUFF = 90 MCG Atorvastatin Calcium 40 Mg Tablet, 40 MG PO HS, (Reported) Cyanocobalamin (Vitamin B-12) 1,000 Mcg Tablet, 1,000 MCG PO DAILY, (Reported) Dronabinol 5 Mg Capsule, 1 CAP PO 1200,1730, (Reported) TAKES BEFORE LUNCH AND SUPPER Escitalopram Oxalate 20 Mg Tablet, 20 MG PO HS, (Reported) Insulin Glargine,Hum.rec.anlog 100 Unit/1 Ml Insuln.pen, 15 UNIT SQ HS Prescribed by: NANNETTE SANDOVAL on 03/07/17 1306 Insulin Lispro 100 Unit/1 Ml Insuln.pen, 5 UNIT SQ AC Prescribed by: NANNETTE SANDOVAL on 03/07/17 1306 Linaclotide 145 Mcg Capsule, 145 MCG PO DAILY, (Reported) Multivitamins with Iron 1 Each Tablet, 1 TAB PO DAILY, (Reported) Omeprazole 40 Mg Capsule.dr, 40 MG PO DAILY, (Reported) Ondansetron 8 Mg Tab.rapdis, 8 MG SL Q8H PRN for NAUSEA/VOMITING-1ST LINE, ( Reported) Oxycodone HCl/Acetaminophen 1 Each Tablet, 1 TAB PO QID PRN for PAIN-MODERATE, ( Reported) Polyethylene Glycol 3350 255 Gm Powder, 17 GM PO DAILY PRN for CONSTIPATION-2ND LINE, (Reported) Potassium Chloride 20 Meq/15 Ml Liquid, 7.5 ML PO DAILY, (Reported) Pregabalin 150 Mg Capsule, 150 MG PO BID, (Reported) Promethazine HCl 25 Mg Tablet, 25 MG PO Q6H PRN for NAUSEA/VOMITING-2ND LINE, ( Reported) Rivaroxaban 20 Mg Tablet, 20 MG PO HS, (Reported) Tizanidine HCl 4 Mg Tablet, 4 MG PO BID PRN for MUSCLE SPASMS, (Reported) Patient Home Medication List Home Medication List Reviewed: Yes Review of Systems Review of Systems Constitutional: see HPI; No chills, No fever Musculoskeletal: see HPI, joint pain (Left shoulder pain) Past Mevbdkp-Kshozf-Sqfuow Hx Patient Social History Alcohol Use: Denies Use Recreational Drug Use: No Smoking Status: Current Everyday Smoker Type Used: Cigarettes Former Smoker, Quit: Jan 28, 2017 Recent Foreign Travel: No Contact w/Someone Who Travel: No Recent Infectious Disease Expo: No Recent Hopitalizations: No (SEE LIST FOR EXTENSIVE HX) Immunizations Up To Date Tetanus Booster (TDap): Less than 5yrs PED Vaccines UTD: Yes Date of Pneumonia Vaccine: Jul 07, 2014 Date of Influenza Vaccine: Feb 23, 2015 Seasonal Allergies Seasonal Allergies: No Past Medical History Surgeries: Yes (HERNIA, thoracentesis, UPPER/LOWER GI COPE) Abdominal, Appendectomy, Hysterectomy Respiratory: No Asthma, Pulmonary Embolism Currently Using CPAP: No Currently Using BIPAP: No Cardiac: Yes Hypertension Neurological: No Neuropathy 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 Genitourinary: No Gastrointestinal: Yes Gastroesophageal Reflux, Obstructive Bowel, Irritable Bowel Musculoskeletal: Yes Fibromyalgia, Chronic Back Pain Endocrine: Yes Diabetes, Insulin dep HEENT: Yes Hearing Impairment: Bilateral Hearing Aide Cancer: Yes Ovarian Did You Recieve Any Treatments: Yes What Type of Treatment Did You: Surgical Intervention Psychosocial: Yes Anxiety, Depression Integumentary: No Blood Disorders: No Adverse Reaction/Blood Tranf: No Family Medical History Cardiovascular disease 19 MOTHER (CHF) G8 SISTER (CHF) Cataracts 19 MOTHER Diabetes mellitus 19 MOTHER G8 BROTHER G8 BROTHER G8 SISTER Hypertension 19 MOTHER G8 SISTER Heart Disease, Diabetes, Hypertension Physical Exam Vital Signs Vital Signs - First Documented 01/27/18 15:16 Temp 97.9 Pulse 97 Resp 18 B/P (MAP) 115/96 (102) Pulse Ox 98 O2 Delivery Room Air Capillary Refill : Less Than 3 Seconds Height, Weight, BMI Height: 5'2.00" Weight: 108lbs. 1.0oz. 48.556522hm; 14.8 BMI Method:Stated General Appearance: No Apparent Distress, WD/WN HEENT: PERRL/EOMI, TMs Normal, Normal ENT Inspection, Pharynx Normal Respiratory: Chest Non Tender, Lungs Clear, Normal Breath Sounds, No Accessory Muscle Use, No Respiratory Distress Cardiovascular: Regular Rate, Rhythm, No Edema, No Gallop, No JVD, No Murmur, Normal Peripheral Pulses Extremity: Normal Capillary Refill, Normal Inspection, Normal Range of Motion, Non Tender, No Calf Tenderness, No Pedal Edema, Other (Normal range of motion with left shoulder. No swelling no edema no evidence of injury.) Neurologic/Psychiatric: Alert, Oriented x3, 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 Skin: Normal Color, Warm/Dry Progress/Results/Core Measures Suspected Sepsis Recent Fever Within 48 Hours: No Infection Criteria Present: None New/Unexplained Altered Menta: No Sepsis Screen: No Definite Risk SIRS Temperature:97.9 Pulse: 97 Respiratory Rate: 18 Blood Pressure 115 /96 Mean: 102 Results/Orders My Orders Medications Given in ED Vital Signs/I&O Capillary Refill : Less Than 3 Seconds Blood Pressure Mean: 102 Progress Note : Time: 16:30 Progress Note I have seen and evaluated the patient at this time. She reports relief of pain with medication administration. She agrees with plans of care, plans were discharged, return precautions were given. Diagnostic Imaging Diagonstic Imaging: Xray Plain Films/CT/US/NM/MRI: other (Shoulder) Comments NAME: JAZMIN YOU [facility] REC#: [id number] PHYSICIAN: CORAL SCOTT CC: CORAL SCOTT; EDWIN BELTRAN MD Page 1 of 1 RADIOLOGY REPORT VIA [facility], [facility]. [place], [place] CC: CORAL SCOTT; EDWIN BELTRAN MD Page 1 of 1 RADIOLOGY REPORT NAME: JAZMIN YOU [facility] REC#: [id number] PT STATUS: DEP ER : 1970 PHYSICIAN: CORAL SCOTT ADMIT DATE: 01/27/18/ER Signed Date of Exam: 01/27/18 SHOULDER, LEFT, 3 VIEWS INDICATION: Left shoulder pain. EXAMINATION: AP, oblique, and transscapular views of the left shoulder are obtained. FINDINGS: No fracture or acute bony abnormality is seen. There is no dislocation. IMPRESSION: Negative left shoulder. Dictated by: Dictated on workstation # [id number] Dict: 01/27/18 1616 Trans: 01/27/18 1719 Interpreted by: EDWIN BELTRAN MD Electronically signed by: EDWIN BELTRAN MD 01/27/18 1719 Reviewed: Reviewed by Me Departure Impression Primary Impression: Shoulder strain Disposition: 01 HOME, SELF-CARE Condition: Stable/Unchanged Departure-Patient Inst. Decision time for Depature: 16:39 Referrals: HORACE HIGGINS MD (PCP/Family) Primary Care Physician Patient Instructions: Shoulder Sprain Add. Discharge Instructions: Continue your home pain medication and muscle relaxers as previously prescribed. Follow up with [facility] in 1 week for recheck. Return back to emergency room for any worsening symptoms or concerns as needed. All discharge instructions reviewed with patient and/or family. Voiced understanding. CORAL SCOTT Jan 27, 2018 16:37
[2018-01-27 16:57] VITALS: BP 115/96
--- OUTSIDE RECORDS SUMMARY | 2018-01-27 19:43 | XMS REPORT | Clinical Summary ---
Author Author [facility] Organization [facility] Address Unknown Phone Unavailable Care Team Providers Care Assembler Bonding Name Role Phone Aamir Magdaleno MD Unavailable Greyson Powell RN Unavailable Unavailable Elal Carrion RN Unavailable Unavailable Misa Alvarez MD Unavailable Smitha Milian RN Unavailable Unavailable Tito Limon MD Unavailable John Raymond MD Unavailable Chioma Jacques RN Unavailable Unavailable Megan Bryan RN Unavailable Unavailable Myesha Orona COMPLIANCE PROFESSIONAL Unavailable Arvin Aguilar RN Unavailable Unavailable aMnasa Savage RN Unavailable Unavailable Andrea Durant COMPLIANCE PROFESSIONAL Unavailable Jack Davila RN Unavailable Unavailable Vanessa Perez MD Unavailable Radha Malin MD Unavailable Chuck Frias MD PCP Source Comments Some departments are not documenting in the electronic medical record. If you do not see the information that you expected, contact Release of Information in the Health Information Management department at [phone] for further assistance in locating additional records.[facility] Allergies Active Allergy Reactions Severity [...] humalog lantis 30 Active untis @@ night TIZANIDINE HCL Take by mouth. Active (TIZANIDINE PO) linaclotide 72 mcg cap Take 72 mcg by mouth 30 capsule 2 08/29/19 Active daily 30 minutes before 18 breakfast. polyethylene glycol 3350 Take 17 g by mouth daily. 510 g 2 12/02/19 Active (MIRALAX) 17 gram/dose 18 powder Active Problems Problem Noted Date Gastroesophageal reflux disease without esophagitis 07/29/2017 Gastroparesis 07/29/2017 Smoker 07/29/2017 Constipation 02/21/2017 Overview: Added automatically from request for surgery [id number] Superior mesenteric artery syndrome (HCC) 03/17/2009 Anemia 03/17/2009 Vitamin D deficiency 03/17/2009 Malnutrition (HCC) 03/17/2009 Weight loss, unintentional 03/06/2009 Migraine 09/17/2008 Depression 09/17/2008 Anxiety 09/17/2008 Suicide attempt (HCC) 09/17/2008 Asthma 09/17/2008 Chronic pain 09/17/2008 Resolved Problems Problem Noted Date Resolved Date Abdominal pain 09/17/2008 07/29/2017 Encounters Date Type Specialty Care Team Description 12/10/2017 Emergency Emergency Medicine 12/01/2017 Refill Gastroenterology Agatha Hopkins APRN-NP from Last 3 Months Immunizations Name Dates [...] Vital Sign Reading Time Taken Blood Pressure 114/83 12/10/2017 3:27 PM CDT Pulse 102 12/10/2017 3:27 PM CDT Temperature 36.9 C (98.4 F) 12/10/2017 3:27 PM CDT Respiratory Rate 18 07/29/2017 11:22 AM LEASE OPERATOR Oxygen Saturation 100% 12/10/2017 3:27 PM CDT Inhaled Oxygen - - Concentration Weight 44.2 kg (97 lb 6.4 oz) 07/29/2017 11:22 AM LEASE OPERATOR Height 158.8 cm (5' 2.5") 07/29/2017 11:22 AM LEASE OPERATOR Body Mass Index 17.53 07/29/2017 11:22 AM LEASE OPERATOR Plan of Treatment Health Maintenance Due Date Last Done Comments PHYSICAL (COMPREHENSIVE) 1978 EXAM PERTUSSIS VACCINE 1982 TETANUS VACCINE 1988 CERVICAL CANCER SCREENING 2001 BREAST CANCER SCREENING 2011 INFLUENZA VACCINE 02/23/2018 03/04/2009, 04/20/2008 HIV SCREENING Completed 03/03/2009 Results Not on filefrom Last 3 Months
--- OUTSIDE RECORDS SUMMARY | 2018-01-27 19:44 | XMS REPORT ---
Author Author HORACE HIGGINS [facility] Address [address] [place] [address] Care Team Providers Care Home Care Provider Name Role Phone HORACE HIGGINS Unavailable PROBLEMS Type Condition ICD9-CM Code [id number] Code Onset Dates Condition Status SNOMED Code Problem Primary insomnia F51.01 Active 8426539 Problem Reactive depression F32.9 Active 58976520 Problem Asthma exacerbation J45.901 Active 454719211 Problem Irritable bowel syndrome with constipation K58.1 Active 906406155 Problem Back pain M54.9 Active 038884064 Problem Tobacco dependency F17.200 Active 43421283 Problem Low TSH level R94.6 Active 492726216 Problem PTSD (post-traumatic stress disorder) F43.10 Active 47438081 Problem Diabetic polyneuropathy associated with type 2 diabetes mellitus E11.42 Active 71658056 Problem Annual physical exam Z00.00 Active 523891878 Problem Migraine without aura and without status migrainosus, not intractable G43.009 Active 080432905 Problem Gastroparesis K31.84 Active 501719684 Problem 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 Active 004128583 Problem Neuropathy G62.9 Active 279677144 Problem Diabetes E11.9 Active 71647978 Problem Uncomplicated asthma, unspecified asthma severity J45.909 Active 779587759 Problem Anorexia R63.0 Active 51037003 Problem Mixed hyperlipidemia E78.2 Active 277151157 Problem Weight loss R63.4 Active 904066100 Problem Type 2 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 Active 12797878 Problem History of colon polyps Z86.010 Active [id number] ALLERGIES No Information ENCOUNTERS Encounter Location Date Diagnosis [facility] [address] [facility] [id number] [address] Jan, [facility] [address] [id number] [address] Jan, [facility] [id number] [place] [address] 41768- 9272 Jan, [facility] [address] 40515- 6491 Jan, [facility] [address] 23085- 3187 Jan, [facility] [address] 53565- 1439 Dec, Right upper quadrant abdominal pain R10.11 [facility] [address] 18417- 1082 Dec, PTSD (post-traumatic stress disorder) F43.10 [place] [address] 17425- 1199 Dec, LLQ pain R10.32 [place] [address] 67585- 7306 Dec, Other dorsalgia M54.89 [place] [id number] [place] [address] 62584- 7767 Dec, Neuropathy G62.9 [facility] [address] 97593- 5094 Dec, [facility] [id number] [place] [address] 35095- 3680 Nov, Irritable bowel syndrome with constipation K58.1 ; Uncomplicated asthma, unspecified asthma severity J45.909 and Type 2 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 [facility] [address] [id number] Nov, Dental examination Z01.20 [facility] [id number] [place] [address] 71722- 8689 Nov, Other dorsalgia M54.89 [facility] [address] 04126- 8415 Nov, LLQ pain R10.32 ; Low TSH level R94.6 and Gastroparesis K31.84 [place] [address] 97513- 6311 Nov, Anorexia R63.0 [place] [address] 65280- 3165 Nov, Asthma exacerbation J45.901 [place] [address] 217045- 6488 Oct, PTSD (post-traumatic stress disorder) F43.10 [place] [address] 79728- 2991 Oct, [place] [address] 72248- 6376 Oct, PTSD (post-traumatic stress disorder) F43.10 and Tobacco dependency F17.200 [place] [address] 35908- 6786 Oct, [place] [address] 70761- 7703 Oct, Other dorsalgia M54.89 [place] [address] 52312- 4751 Oct, Anorexia R63.0 [place] [id number] [place] [address] 31859- 1754 September, PTSD (post-traumatic stress disorder) F43.10 [place] [id number] [place] [address] 12616- 1905 September, Low TSH level R94.6 [place] [id number] [place] [address] 73986- 2074 September, Other dorsalgia M54.89 [place] [address] 20340- 9468 September, Annual physical exam Z00.00 and Migraine without aura and without status migrainosus, not intractable G43.009 [place] [address] 986 September, Abnormal TSH R94.6 and Dysfunction of left eustachian tube H69.82 [facility] [address] 201 Aug, [facility] [address] 902 Aug, Anorexia R63.0 [facility] [address] [id number] Aug, Dental examination Z01.20 and Xerostomia K11.7 [place] [address] 84251 4057 Aug, Neuropathy G62.9 [place] [address] 86151 1412 Aug, [place] [address] 47146- 8881 Aug, Other dorsalgia M54.89 [place] [address] 64957- 5101 Aug, Type 2 diabetes mellitus with diabetic autonomic (poly) 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 ; Diabetic polyneuropathy associated with type 2 diabetes mellitus E11.42 ; Bronchitis J40 ; Gastroparesis K31.84 and Reactive depression F32.9 [place] [id number] [place] [address] 57039- 0707 Aug, PTSD (post-traumatic stress disorder) F43.10 [place] [address] [place] [address] [id number]- 705 Aug, Other dorsalgia M54.89 and Anorexia R63.0 [place] [address] 01296- 1221 Jul, [place] [address] [address] 2546 Jul, Other dorsalgia M54.89 [facility] [id number] [place] [address] 21884 2546 Jul, [facility] [id number] [place] [address] 07374 2546 Jul, [facility] [id number] [place] [address] 45296 2546 Jul, PTSD (post-traumatic stress disorder) F43.10 [facility] [id number] [place] [address] 69107 2546 Jul, [facility] [id number] [place] [address] 21025 2546 Jul, [facility] [id number] [place] [address] 05527 2546 Jul, [facility] [id number] [place] [address] 45518 2546 Jul, Anorexia R63.0 [facility] [id number] [place] [address] 68931 2546 Jun, [facility] [id number] [place] [address] 39871 2546 Jun, Vaginal discharge N89.8 ; Visit for gynecologic examination Z01.419 and Pelvic pressure in female R10.2 [facility] [address] [place] [address] 52065 2546 Jun, [facility] [id number] [place] [address] 37326 2546 Jun, Other dorsalgia M54.89 [facility] [id number] [place] [address] 27513 2546 16 Jun, 2017 [facility] [id number] [place] [address] 77664- 2546 Jun, [facility] [id number] [place] [address] 85545- 4475 Jun, [facility] [id number] [place] [address] 02552- 8456 May, Back pain M54.9 [facility] [address] 07003- 3986 May, Anorexia R63.0 [facility] [address] 84963- 0724 May, Other dorsalgia M54.89 [facility] [address] 87922- 0041 May, [facility] [id number] [place] [address] 54921- 7648 May, Bronchitis J40 [facility] [address] 65711- 9268 May, Type 2 diabetes mellitus with diabetic autonomic (poly) 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 ; 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 ; Back pain M54.9 and Neuropathy G62.9 [facility] [id number] [place] [address] 99402- 3634 May, Left breast mass N63.20 [facility] [id number] [place] [address] 65426- 4050 May, [facility] [id number] [place] [address] 48198 2544 Apr, Other dorsalgia M54.89 [facility] [id number] [place] [address] 88748- 7726 Apr, Anorexia R63.0 [facility] [id number] [place] [address] 96647- 1396 Apr, Anorexia R63.0 [facility] [id number] [place] [address] 85460- 5899 Apr, Mass of left breast N63.20 [facility] [id number] [place] [address] 70635- 7811 Apr, [facility] [id number] [place] [address] 30069- 3863 Apr, [facility] [id number] [place] [address] 55471- 2644 Apr, Diarrhea of presumed infectious origin A09 [facility] [id number] [place] [address] 27783- 2375 Apr, Encounter for immunization Z23 [facility] [address] 29794- 7106 Apr, [facility] [id number] [place] [address] 68296- 1279 Mar, Other dorsalgia M54.89 [facility] [id number] [place] [address] 79104- 1041 Mar, [facility] [id number] [place] [address] 15865- 6930 Mar, [facility] [id number] [place] [address] 80457- 6932 Mar, Anorexia R63.0 [facility] [id number] [place] [address] 50553- 3690 Mar, [facility] [id number] [place] [address] 13696- 3563 Mar, Other dorsalgia M54.89 [facility] [id number] [place] [address] 21256- 2610 Mar, [facility] [id number] [place] [address] 22566- 5626 Mar, Encounter for immunization Z23 [facility] [id number] [place] [address] 65707- 2850 Feb, Anorexia R63.0 [facility] [id number] [place] [address] 67779- 6772 Feb, Diabetes E11.9 [facility] [address] 06911- 4195 Feb, Back pain M54.9 and Diabetes E11.9 [facility] [address] 15827- 8639 Feb, Diabetes E11.9 [facility] [address] 51719- 7591 Feb, Neuropathy G62.9 [facility] [address] 68451- 1825 Feb, Encounter for immunization Z23 ; Epigastric pain R10.13 ; Weight loss, abnormal R63.4 and Neuropathy G62.9 [facility] [address] [id number] Feb, [facility] [address] 38943- 3958 Feb, [facility] [address] 61355- 1592 Feb, Intractable vomiting with nausea, unspecified vomiting type R11.2 [facility] [id number] [place] [address] 01965 -0027 Feb, Chronic nausea R11.0 [facility] [address] 78871- 4620 Feb, Other dorsalgia M54.89 [facility] [address] 73381- 5746 Jan, [facility] [address] 33342- 9658 Jan, [facility] [id number] [place] [address] 18495- 8549 Jan, [facility] [address] [address] 2546 08 Jan, 2017 [facility] [id number] [place] [address] 66711- 2546 08 Jan, 2017 Asthma exacerbation J45.901 ; Bronchitis J40 and Neuropathy G62.9 [facility] [id number] [place] [address] 27441- 2546 06 Jan, 2017 Anorexia R63.0 [facility] [id number] [place] [address] 95612- 2546 Jan, Other dorsalgia M54.89 [facility] [id number] [place] [address] 36840 2546 Dec, [facility] [id number] [place] [address] 62696 2546 Dec, [facility] [id number] [place] [address] 72283 2546 Dec, Anorexia R63.0 [facility] [id number] [place] [address] 77229 2546 Dec, Primary insomnia F51.01 [facility] [id number] [place] [address] 03916 2546 Dec, Other dorsalgia M54.89 [facility] [id number] [place] [address] 37950 2546 Dec, [facility] [id number] [place] [address] 05275 2546 Nov, [facility] [id number] [place] [address] 42369 2546 Nov, [facility] [id number] [place] [address] 40615 2546 Nov, [facility] [address] [address] 2546 Nov, History of colon polyps Z86.010 [facility] [address] [address]- 4424 Nov, Weight loss R63.4 ; Nausea and vomiting, intractability of vomiting not specified, unspecified vomiting type R11.2 and Abnormal LFTs R79.89 [facility] [id number] [place] [address] 97096- 1186 18 Nov, 2016 [facility] [id number] [place] [address] 72666 2546 Nov, Neuropathy G62.9 and Pain in right knee M25.561 [facility] [id number] [place] [address] 35847- 8346 Nov, Back pain M54.9 [facility] [id number] [place] [address] 34081- 1916 10 Nov, 2016 [facility] [id number] [place] [address] 28640- 8643 Nov, Bronchitis J40 [facility] [id number] [place] [address] 67768- 0485 03 Nov, 2016 Weight loss R63.4 [facility] [id number] [place] [address] 79551 2546 16 Oct, 2016 Back pain M54.9 [facility] [id number] [place] [address] 66509 2546 16 Oct, 2016 [facility] [id number] [place] [address] 30553 2548 14 Oct, 2016 Back pain M54.9 [facility] [address] [place] [address] 75234 2546 13 Oct, 2016 Type 2 diabetes mellitus without complications E11.9 and Bronchitis J40 [facility] [address] [address] 2546 05 Oct, 2016 [facility] [id number] [place] [address] 41991- 0236 Oct, [facility] [address] [place] [address] 56237- 0518 September, Gastroparesis K31.84 ; Type 2 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 and Neuropathy G62.9 [facility] [id number] [place] [address] 21175- 6868 September, Other dorsalgia M54.89 [facility] [id number] [place] [address] 80065- 2749 September, [facility] [id number] [place] [address] 63393- 6160 September, [facility] [id number] [place] [address] 41080- 8296 Aug, Gastroparesis K31.84 and Radicular leg pain M54.10 [place] [address] 42250- 3181 Aug, Anorexia R63.0 [place] [id number] [place] [address] 28659- 0983 Aug, Bronchitis J40 [place] [id number] [place] [address] 39490- 8136 Aug, Back pain M54.9 [place] [id number] [place] [address] 21158- 5829 Aug, Routine gynecological examination Z01.419 ; Routine screening for STI (sexually transmitted infection) Z11.3 and Yeast infection of the vagina B37.3 [place] [id number] [place] [address] 61306- 1569 Jul, Other dorsalgia M54.89 [facility] [id number] [place] [address] 46932- 3713 Jul, Diabetes E11.9 and Gastroparesis K31.84 [facility] [id number] [place] [address] 86352- 3628 Jun, [facility] [id number] [place] [address] 26788- 1184 24 Jun, 2016 Back pain M54.9 [facility] [address] 01249- 8407 14 Jun, 2016 Neuropathy G62.9 [facility] [id number] [place] [address] [id number] 02 Jun, 2016 Encounter for dental examination Z01.20 [facility] [address] 20737- 5361 01 Jun, 2016 Gastroparesis 536.3 and Anorexia R63.0 [facility] [address] 09939- 9780 May, Other dorsalgia M54.89 [facility] [address] 94023- 1544 May, Periumbilical abdominal pain R10.33 ; Weight loss R63.4 and Gastroparesis K31.84 [facility] [id number] [place] [address] 17125- 1134 May, Back pain M54.9 [facility] [address] 52307- 9834 Apr, Anorexia R63.0 [facility] [address] 00530- 6349 Apr, Anorexia R63.0 [facility] [id number] [place] [address] 20739- 0528 Apr, Back pain M54.9 [facility] [address] 72266- 6794 15 Apr, 2016 Back pain M54.9 [facility] [address] 82652- 9814 Apr, [facility] [address] 00390- 7012 Apr, Bronchitis J40 and Neuropathy G62.9 [place] [address] 67102- 6000 Apr, Neuropathy G62.9 [facility] [address] 85673- 2703 Apr, [facility] [address] 72769- 0840 Apr, Back pain M54.9 [place] [address] 84506- 5373 Mar, Type 2 diabetes mellitus with diabetic autonomic (poly) 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 [place] [address] 75571- 9626 Mar, Type 2 diabetes mellitus without complications E11.9 [place] [address] 19455- 2341 Mar, Neuropathy G62.9 [place] [address] 46443- 1735 Mar, [place] [address] 11385- 2702 Mar, Breast cancer screening Z12.39 [place] [address] 50722- 2812 Mar, Other dorsalgia M54.89 [place] [address] 32603- 2732 Feb, [place] [address] 05655- 8255 Jan, Neuropathy G62.9 ; Type 2 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 ; Uncomplicated asthma, unspecified asthma severity J45.909 and Encounter for immunization Z23 [place] [address] 66678- 4577 Jan, [facility] [address] [address]- 0480 Jan, [facility] [id number] [place] [address] 95918- 4051 Dec, [facility] [id number] [place] [address] 39316- 9029 Dec, [facility] [id number] [place] [address] 51240- 3384 Nov, [facility] [id number] [place] [address] 52573- 9219 Nov, Back pain M54.9 [facility] [id number] [place] [address] 73140- 1940 Nov, Neuropathy G62.9 ; Mixed hyperlipidemia E78.2 ; Type 2 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 and halfway 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 Z79.4 [facility] [id number] [place] [address] 55089- 7746 Oct, [facility] [id number] [place] [address] 00183- 1171 Oct, Other dorsalgia M54.89 [facility] [id number] [place] [address] 23887- 9961 September, Primary insomnia F51.01 [facility] [id number] [place] [address] 61269- 0424 September, [facility] [id number] [place] [address] 65917- 8208 Aug, Other dorsalgia M54.89 [facility] [id number] [place] [address] 09919- 6015 Jul, [facility] [id number] [place] [address] 01114- 7134 Jul, Other dorsalgia M54.89 [facility] [id number] [place] [address] 79933- 1157 Jul, Diabetes E11.9 ; Back pain M54.9 ; Neuropathy G62.9 and Gastroparesis K31.84 [facility] [id number] [place] [address] [id number]- 3925 Jun, [facility] [id number] [place] [address] 17491- 8706 Jun, Other dorsalgia M54.89 [facility] [id number] [place] [address] 92235- 6369 May, [facility] [address] 10981- 3707 May, Radicular leg pain M54.10 and Other dorsalgia M54.89 [facility] [id number] [place] [address] 31174- 9757 Apr, [facility] [id number] [place] [address] [phone]- [phone] Mar, [facility] [id number] [place] [address] 21528- 4152 Mar, [facility] [id number] [place] [address] 13972- 7560 Mar, Radicular leg pain M54.10 [facility] [id number] [place] [address] [phone]- 1882 Feb, [facility] [id number] [place] [address] [phone]- 2549 Feb, [facility] [id number] [place] [address] 70424- 2636 Feb, [facility] [id number] [place] [address] 57827- 2545 Jan, [facility] [id number] [place] [address] 26958- 2187 Jan, IBS (irritable bowel syndrome) 564.1 [facility] [address] [id number] [address] Jan, [facility] [id number] [place] [address] 77375- 8110 Jan, [facility] [id number] [place] [address] 12973- 7554 Jan, Diabetes mellitus without mention of complication, type II or unspecified type, not stated as uncontrolled 250.00 ; Gastroparesis 536.3 and Hypoacusis 389.9 [facility] [id number] [place] [address] 51354- 7234 Jan, [facility] [id number] [place] [address] 89670- 3474 Jan, [facility] [id number] [place] [address] 06394- 8037 Dec, [facility] [id number] [place] [address] 52786- 1611 Dec, [facility] [id number] [place] [address] 23967- 1925 Dec, [facility] [id number] [place] [address] 74338- 4133 Dec, Back pain 724.5 and Gastroparesis 536.3 [facility] [id number] [place] [address] 71355- 8653 Nov, [facility] [id number] [place] [address] [id number] Nov, Dental examination V72.2 [facility] [id number] [place] [address] 50488- 6180 Nov, [facility] [id number] [place] [address] 04433- 0270 Nov, [facility] [id number] [place] [address] 56283- 0067 Nov, Depressive disorder, not elsewhere classified 311 and No condition on [place] II V71.09 [facility] [id number] [place] [address] 92824- 0206 Nov, Diabetes 250.00 and Symptomatic menopausal or female climacteric states 627.2 [facility] [id number] [address] Oct, [facility] [id number] [place] [address] 59912- 2095 Oct, Lumbar strain 847.2 [facility] [id number] [place] [address] 507489- 1695 Oct, Gastroparesis 536.3 and Unspecified myalgia and myositis 729.1 [facility] [address] [address] Aug, [facility] [id number] [place] [address] 85883- 5949 Aug, [facility] [address] [address] Jul, [facility] [id number] [address] 3257 Jul, [facility] [address] [address] 0419 Jul, [facility] [address] [address] 0810 Jul, [facility] [address] [address] 0414 Jul, [facility] [address] [address] 18 Jun, 2014 [facility] [id number] [address] [address]336 Jun, [facility] [id number] [address] Jun, [facility] [place] [facility] [address] [id number] [place] [address] 6357 May, [facility] [place] [facility] [address] [id number] [place] [address]- 8604 May, [facility] [place] [facility] [address] [id number] [place] [address]- 7278 Mar, [facility] [place] [facility] [address] [id number] [place] [address]- 1395 Mar, [facility] [place] [facility] [address] [id number] [place] [address]- 2393 Mar, [facility] [place] [facility] [address] [id number] [place] [address]- 3666 Mar, [facility] [place] [facility] [address] [id number] [place] [address]- 6711 Mar, [facility] [place] [facility] [address] [id number] [place] [address]- 1039 Mar, [facility] [place] [facility] [address] [id number] [place] [address]- 1219 Feb, [facility] [place] [facility] [address] [id number] [place] [address]- 8801 Feb, [facility] [place] [facility] [address] [id number] [place] [address]- 7144 Nov, [facility] [place] [facility] [address] [id number] [place] [address]- 7320 Nov, [facility] [place] [facility] [address] [id number] [place] [address]- 7656 Nov, [facility] [place] [facility] [address] [id number] [place] [address]- 0416 Oct, [facility] [place] [facility] [address] [id number] [place] [address]- 6272 September, [facility] [address] [id number] [place] [address]- 6887 Aug, [facility] [place] [facility] [address] [id number] [place] [address]- 0929 Aug, [facility] [place] [facility] [address] [id number] [place] [address]- 5127 Aug, [facility] [place] [facility] [address] [id number] [place] [address]- 5482 Aug, [facility] [place] [facility] [address] [id number] [place] [address]- 5683 Aug, [facility] [place] [facility] [address] [id number] [place] [address]- 0161 Aug, [facility] [place] [facility] [address] [id number] [place] [address]- 8785 Aug, [facility] [place] [facility] [address] [id number] [place] [address]- 9778 Aug, [facility] [place] [facility] [address] [id number] [place] [address]- 3506 Jul, [facility] [place] [facility] [address] [id number] [place] [address]- 0580 Jul, [facility] [place] [facility] [address] [id number] [place] [address]- 3745 Jun, [facility] [place] [facility] [address] [id number] [address]- 0914 Jun, [facility] [place] [facility] [address] [id number] [place] [address]- 7321 Jun, [facility] [place] [facility] [address] [id number] [place] [address]- 1083 Jun, [facility] [place] [facility] [address] [id number] [place] [address]- 4580 Jun, [facility] [place] [facility] [id number] [address]- 2546 07 Jun, 2012 [facility] [address] [id number] [address]- 1636 Jun, [facility] [address] [address]- 4366 May, [facility] [address] [id number] [address]- 8926 May, [facility] [address] [address]- 1801 May, [facility] [address] [address] 1970 May, [facility] [address] [address]- 1276 Mar, [facility] [address] [address]- 0027 Mar, [facility] [address] [facility] [id number] [address]- 4[address] Jan, IMMUNIZATIONS No Known Immunizations SOCIAL HISTORY Never Assessed REASON FOR VISIT Refill request PLAN OF CARE VITAL SIGNS MEDICATIONS Medication Instructions Dosage Frequency Start Date End Date Duration Status Marinol 5 mg Orally Twice a day 1 capsule before lunch and supper 12h 28 days Active RESULTS No Results PROCEDURES No Known procedures INSTRUCTIONS MEDICATIONS ADMINISTERED No Known Medications MEDICAL (GENERAL) HISTORY Type Description Date Medical History umbilical hernia Medical History pulmonary emboli Medical History asthma Medical History depression Medical History anxiety Medical History diabetes type II Medical History bowel obstruction 2008 Medical History HSV1 Surgical History bowel obstruction 2009 Surgical History umblical hernia x 8 Surgical History appendectomy 1987 Surgical History hysterectomy 2006 Surgical History EGD 2017 Hospitalization History Nervous breakdown 2008 Hospitalization History pulmonary emboli and pneumonia 2014 Hospitalization History High blood sugar 2016 Hospitalization History DKA, vomitting-[facility] 03/05/17 Hospitalization History hospital stay at [facility] for stomach issues 2016
--- OUTSIDE RECORDS SUMMARY | 2018-01-27 19:44 | XMS REPORT | Encounter Summary ---
Author Author [facility] Organization [facility] Address Unknown Phone Unavailable Care Team Providers Care Laboratory Technical Specialist Name Role Phone Aamir Magdaleno MD Unavailable Greyson Powell RN Unavailable Unavailable Ella Carrion RN Unavailable Unavailable Misa Alvaerz MD Unavailable Smitha Milian RN Unavailable Unavailable Tito Limon MD Unavailable John Raymond MD Unavailable Chioma Jacques RN Unavailable Unavailable Megan Bryan RN Unavailable Unavailable Myesha Orona FEEDER/FOLDER Unavailable Arvin Aguilar RN Unavailable Unavailable Manasa Savage RN Unavailable Unavailable Andrea Durant FEEDER/FOLDER Unavailable Jack Davila RN Unavailable Unavailable Vanessa Perez MD Unavailable Radha Malin MD Unavailable Chuck Frias MD PCP Reason for Visit * Reason Comments Melena x3 weeks, c/o abdominal pain, taking xaralto Encounter Details Date Type Department Care Team Description 12/10/2017 Emergency Emergency Dept. [address] [place] [address]. [place] [address] Social History Tobacco Use Types Packs/Day Years [...] F) 12/10/2017 3:27 PM CDT Respiratory Rate - - Oxygen Saturation 100% 12/10/2017 3:27 PM CDT Inhaled Oxygen - - Concentration Weight - - Height - - Body Mass Index - - in this encounter Medications at Time of Discharge Medication Sig. Disp. Refills Start Date End Date atorvastatin (LIPITOR) 40 Take 40 mg by mouth mg tablet daily. CYANOCOBALAMIN (VITAMIN Take by mouth. B-12 PO) dronabinol (MARINOL) 5 mg Take 5 mg by mouth twice capsule daily. ERGOCALCIFEROL (VITAMIN D Take 1,000 Units by mouth PO) Daily. escitalopram (LEXAPRO) 20 Take 1 Tab by mouth 30 Tab 0 10/02/2010 mg PO tablet daily. linaclotide 72 mcg cap Take 72 mcg by mouth 30 capsule 2 08/28/2017 daily 30 minutes before breakfast. MULTIVITAMINS Take by mouth. (MULTIVITAMIN PO) omeprazole DR(+) Take 40 mg by mouth daily (PRILOSEC) 40 mg capsule before breakfast. other medication 1 Dose. humalog lantis 30 untis @@ night oxycodone/acetaminophen Take 1 Tab by mouth Every 30 0 05/13/2009 (PERCOCET) 5/325 mg 4 Hours as needed for tablet Pain. polyethylene glycol 3350 Take 17 g by mouth daily. 510 g 2 12/01/2017 (MIRALAX) 17 gram/dose powder pregabalin (LYRICA) 300 Take 300 mg by mouth mg capsule twice daily. rivaroxaban (XARELTO) 20 Take 20 mg by mouth mg tablet daily. Take with food. spacer inhalation device by SEE ADMIN INSTRUCTIONS (AEROCHAMBER) route as directed. spcrIndications: PRN Indications: PRN TIZANIDINE HCL Take by mouth. (TIZANIDINE PO) topiramate (TOPAMAX) 100 Take 1 Tab by mouth Twice 60 2 03/17/2009 mg tablet Daily. ZOLPIDEM TARTRATE (AMBIEN Take by mouth. PO) as of this encounter Miscellaneous Notes * ED Notes - Tracey Greer RN - 12/10/2017 8:23 PM CDT Pt did not respond when called for vitals. in this encounter Plan of Treatment Not on fileas of this encounter Visit Diagnoses Not on filein this encounter
--- OUTSIDE RECORDS SUMMARY | 2018-01-27 19:44 | XMS REPORT | Encounter Summary ---
Author Author [facility] Address Unknown Phone Unavailable Care Team Providers Care Manager Content Name Role Phone Aamir Magdaleno MD Unavailable Greyson Powell RN Unavailable Unavailable Ella Carrion RN Unavailable Unavailable Misa Alvarez MD Unavailable Smitha Milian RN Unavailable Unavailable Tito Limon MD Unavailable John Raymond MD Unavailable Chioma Jacques RN Unavailable Unavailable Megan Bryan RN Unavailable Unavailable Myesha [place]a BROADCAST SYSTEMS ENGINEER Unavailable Arvin Aguilar RN Unavailable Unavailable Manasa Savage RN Unavailable Unavailable Andrea Durant BROADCAST SYSTEMS ENGINEER Unavailable Jack Davila RN Unavailable Unavailable Vanessa Perez MD Unavailable Radha Malin MD Unavailable Cuhck Frias MD PCP Reason for Visit * Reason Comments Medication Refill Encounter Details Date Type Department Care Team Description 12/01/2017 Refill [facility] BROADCAST SYSTEMS ENGINEER-ACUPUNCTURE PHYSICIAN [facility] [address] [facility] [address] [place] [address] [address] [phone] [place] [address] Social History Tobacco Use Types [...]
--- OUTSIDE RECORDS SUMMARY | 2018-01-27 19:45 | XMS REPORT ---
Author Author MELQUIADES BA Organization [facility] Address [address] [place] [address] Care Team Providers Care Operator Assistant I Cementing Name Role Phone MELQUIADES BA Unavailable PROBLEMS Type Condition ICD9-CM Code VHG82-HS Code Onset Dates Condition Status SNOMED Code Problem Primary insomnia F51.01 Active 3807265 Problem Reactive depression F32.9 Active 20272953 Problem Asthma exacerbation J45.901 Active 949387465 Problem Irritable bowel syndrome with constipation K58.1 Active 167599257 Problem Back pain M54.9 Active 250032222 Problem Tobacco dependency F17.200 Active 36585708 Problem Low TSH level R94.6 Active 498759191 Problem PTSD (post-traumatic stress disorder) F43.10 Active 80073699 Problem Diabetic polyneuropathy associated with type 2 diabetes mellitus E11.42 Active 74032129 Problem Annual physical exam Z00.00 Active 632645266 Problem Migraine without aura and without status migrainosus, not intractable G43.009 Active 459427341 Problem Gastroparesis K31.84 Active 639715135 Problem assisted 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 Z79.4 Active 803354047 Problem Neuropathy G62.9 Active 060990326 Problem Diabetes E11.9 Active 68846836 Problem Uncomplicated asthma, unspecified asthma severity J45.909 Active 210712434 Problem Anorexia R63.0 Active 08516505 Problem Mixed hyperlipidemia E78.2 Active 541556954 Problem Weight loss R63.4 Active 127360556 Problem Type 2 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 Active 85143062 Problem History of colon polyps Z86.010 Active 731597513 ALLERGIES No Information ENCOUNTERS Encounter Location Date Diagnosis [facility] [address] [facility] [id number] [address] Jan, [facility] [address] [id number] [address] Jan, [place] [id number] [place] [address] 09951- 0839 Jan, [place] [address] 73846- 9309 Dec, Right upper quadrant abdominal pain R10.11 [place] [address] 20954- 6596 Dec, PTSD (post-traumatic stress disorder) F43.10 [facility] [place] [id number] [place] [address] 68790- 3920 Dec, LLQ pain R10.32 [facility] [address] 92419- 9910 Dec, Other dorsalgia M54.89 [facility] [place] [id number] [place] [address] 51457- 2291 Dec, Neuropathy G62.9 [place] [address] 46848- 3967 Dec, [place] [address] 39406- 6190 Nov, Irritable bowel syndrome with constipation K58.1 ; Uncomplicated asthma, unspecified asthma severity J45.909 and Type 2 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 [facility] [id number] [place] [address] [id number] Nov, Dental examination Z01.20 [place] [id number] [place] [address] 62501- 8540 Nov, Other dorsalgia M54.89 [place] [address] 20115- 3016 Nov, LLQ pain R10.32 ; Low TSH level R94.6 and Gastroparesis K31.84 [place] [address] 61015- 1297 Nov, Anorexia R63.0 [place] [id number] [place] [address] 41088- 4491 Nov, Asthma exacerbation J45.901 [place] [place] [id number] [place] [address] 80517- 9233 Oct, PTSD (post-traumatic stress disorder) F43.10 [place] [address] 34287- 7156 Oct, [place] [address] 40846- 5363 Oct, PTSD (post-traumatic stress disorder) F43.10 and Tobacco dependency F17.200 [place] [address] 03928- 1187 Oct, [place] [address] 35570- 8692 Oct, Other dorsalgia M54.89 [place] [address] 83487- 7616 Oct, Anorexia R63.0 [place] [address] 86863- 2605 September, PTSD (post-traumatic stress disorder) F43.10 [place] [id number] [place] [address] 48622- 8937 September, Low TSH level R94.6 [place] [address] 35302- 7811 September, Other dorsalgia M54.89 [place] [address] 78537- 3861 September, Annual physical exam Z00.00 and Migraine without aura and without status migrainosus, not intractable G43.009 [place] [id number] [place] [address] 00516- 8856 September, Abnormal TSH R94.6 and Dysfunction of left eustachian tube H69.82 [facility] [id number] [place] [address] 66063- 5124 Aug, [facility] [address] 454082- 645 Aug, Anorexia R63.0 [facility] [address] [id number] Aug, Dental examination Z01.20 and Xerostomia K11.7 [facility] [address] 85901- 3459 Aug, Neuropathy G62.9 [place] [address] 03281- 5517 Aug, [place] [address] 11501- 0769 Aug, Other dorsalgia M54.89 [place] [address] 07145- 8701 Aug, Type 2 diabetes mellitus with diabetic autonomic (poly) 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 ; Diabetic polyneuropathy associated with type 2 diabetes mellitus E11.42 ; Bronchitis J40 ; Gastroparesis K31.84 and Reactive depression F32.9 [place] [id number] [place] [address] 70031- 4766 Aug, PTSD (post-traumatic stress disorder) F43.10 [place] [id number] [place] [address] 90847- 5355 Aug, Other dorsalgia M54.89 and Anorexia R63.0 [place] [address] 28599- 7264 Jul, [place] [address] 63907- 1166 Jul, Other dorsalgia M54.89 [place] [address] 19323- 6161 Jul, [facility] [id number] [place] [address] 35928- 3485 Jul, [facility] [id number] [place] [address] 34688- 7356 Jul, PTSD (post-traumatic stress disorder) F43.10 [facility] [id number] [place] [address] 86962- 7376 Jul, [facility] [id number] [place] [address] 89479- 7946 Jul, [facility] [id number] [place] [address] 68871- 0179 Jul, [facility] [id number] [place] [address] 07450- 4036 Jul, Anorexia R63.0 [facility] [address] 05838- 1646 Jun, [facility] [id number] [place] [address] 23937- 9990 Jun, Vaginal discharge N89.8 ; Visit for gynecologic examination Z01.419 and Pelvic pressure in female R10.2 [facility] [id number] [place] [address] 25821- 7152 Jun, [facility] [id number] [place] [address] 03412- 9556 Jun, Other dorsalgia M54.89 [facility] [id number] [place] [address] 06547- 9716 16 Jun, 2017 [facility] [address] 64246- 4636 Jun, [facility] [id number] [place] [address] 26038- 5036 Jun, [facility] [id number] [place] [address] 31411- 9707 May, Back pain M54.9 [facility] [address] 32056- 3137 May, Anorexia R63.0 [facility] [address] 40468- 2371 May, Other dorsalgia M54.89 [facility] [address] 28972- 3278 May, [facility] [address] 81319- 1349 May, Bronchitis J40 [facility] [address] 14965- 5637 May, Type 2 diabetes mellitus with diabetic autonomic (poly) 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 ; 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 Z79.4 ; Back pain M54.9 and Neuropathy G62.9 [facility] [address] 39482- 7711 May, Left breast mass N63.20 [facility] [address] 52837- 7640 May, [facility] [address] 08582- 8531 Apr, Other dorsalgia M54.89 [facility] [address] 86946- 3083 Apr, Anorexia R63.0 [facility] [address] 43878- 6714 Apr, Anorexia R63.0 [facility] [address] 95974- 3067 Apr, Mass of left breast N63.20 [facility] [address] 41363- 9439 Apr, [facility] [address] 17931- 3158 Apr, [facility] [id number] [place] [address] 86502- 6013 Apr, Diarrhea of presumed infectious origin A09 [facility] [id number] [place] [address] 16826- 0760 Apr, Encounter for immunization Z23 [facility] [id number] [place] [address] 85303- 5597 Apr, [facility] [id number] [place] [address] 96352- 9253 Mar, Other dorsalgia M54.89 [facility] [id number] [place] [address] 67426- 3211 Mar, [facility] [id number] [place] [address] 17665- 7442 Mar, [facility] [id number] [place] [address] 84623- 4760 Mar, Anorexia R63.0 [facility] [id number] [place] [address] 24972- 5981 Mar, [facility] [id number] [place] [address] 53926- 8553 Mar, Other dorsalgia M54.89 [facility] [id number] [place] [address] 57040- 7419 Mar, [facility] [id number] [place] [address] 57128- 9085 Mar, Encounter for immunization Z23 [facility] [id number] [place] [address] 57029- 8587 Feb, Anorexia R63.0 [facility] [id number] [place] [address] 22085- 3405 Feb, Diabetes E11.9 [facility] [id number] [place] [address] 72126- 3110 Feb, Back pain M54.9 and Diabetes E11.9 [facility] [id number] [place] [address] 14295- 1566 Feb, Diabetes E11.9 [facility] [address] 39943- 2671 Feb, Neuropathy G62.9 [facility] [address] 19392- 2198 Feb, Encounter for immunization Z23 ; Epigastric pain R10.13 ; Weight loss, abnormal R63.4 and Neuropathy G62.9 [facility] [address] [id number] Feb, [facility] [address] 11111- 8914 Feb, [facility] [address] 67320- 0306 Feb, Intractable vomiting with nausea, unspecified vomiting type R11.2 [facility] [id number] [place] [address] 35155 -5859 Feb, Chronic nausea R11.0 [facility] [address] 57643- 8600 Feb, Other dorsalgia M54.89 [facility] [id number] [place] [address] 12618- 8320 Jan, [facility] [id number] [place] [address] 20341- 3178 Jan, [facility] [address] 52602- 7500 Jan, [facility] [address] 74642- 9593 Jan, [facility] [id number] [place] [address] 12482- 5954 Jan, Asthma exacerbation J45.901 ; Bronchitis J40 and Neuropathy G62.9 [facility] [address] 55312- 8736 Jan, Anorexia R63.0 [facility] [address] 32451- 1896 Jan, Other dorsalgia M54.89 [facility] [address] 53249- 3317 Dec, [facility] [address] 61357- 6903 Dec, [facility] [address] 12036- 7874 Dec, Anorexia R63.0 [facility] [address] 40046- 5448 Dec, Primary insomnia F51.01 [facility] [address] 80378- 2721 Dec, Other dorsalgia M54.89 [facility] [address] 65489- 1278 Dec, [facility] [address] 32799- 4790 Nov, [facility] [id number] [place] [address] 14204- 3353 Nov, [facility] [address] 84472- 8056 Nov, [facility] [id number] [place] [address] 63349- 9721 Nov, History of colon polyps Z86.010 [facility] [id number] [place] [address] 25788- 5320 Nov, Weight loss R63.4 ; Nausea and vomiting, intractability of vomiting not specified, unspecified vomiting type R11.2 and Abnormal LFTs R79.89 [facility] [address] [place] [address] 76914- 8940 18 Nov, 2016 [facility] [id number] [place] [address] 45694- 3506 14 Nov, 2016 Neuropathy G62.9 and Pain in right knee M25.561 [facility] [id number] [place] [address] 58652- 5906 12 Nov, 2016 Back pain M54.9 [facility] [id number] [place] [address] 37241 2541 10 Nov, 2016 [facility] [id number] [place] [address] 86400- 1191 Nov, Bronchitis J40 [facility] [id number] [place] [address] 54406- 2898 Nov, Weight loss R63.4 [facility] [id number] [place] [address] 58909- 4455 16 Oct, 2016 Back pain M54.9 [facility] [id number] [place] [address] 60219- 2419 16 Oct, 2016 [facility] [id number] [place] [address] 57656- 6342 Oct, Back pain M54.9 [facility] [id number] [place] [address] 18132- 7944 Oct, Type 2 diabetes mellitus without complications E11.9 and Bronchitis J40 [facility] [id number] [place] [address] 00155 2543 Oct, [facility] [id number] [place] [address] 97792- 6971 Oct, [facility] [address] [place] [address] 77783- 2710 September, Gastroparesis K31.84 ; Type 2 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 and Neuropathy G62.9 [facility] [id number] [place] [address] 28614- 2125 September, Other dorsalgia M54.89 [facility] [id number] [place] [address] 89104- 2478 September, [facility] [id number] [place] [address] 62583- 4396 September, [facility] [address] 14380- 8473 Aug, Gastroparesis K31.84 and Radicular leg pain M54.10 [facility] [address] 41691- 5463 Aug, Anorexia R63.0 [facility] [address] 41023- 9423 Aug, Bronchitis J40 [facility] [id number] [place] [address] 66645- 3207 Aug, Back pain M54.9 [facility] [id number] [place] [address] 14794- 0384 Aug, Routine gynecological examination Z01.419 ; Routine screening for STI (sexually transmitted infection) Z11.3 and Yeast infection of the vagina B37.3 [facility] [id number] [place] [address] 44078- 5542 Jul, Other dorsalgia M54.89 [facility] [id number] [place] [address] 60861- 1015 Jul, Diabetes E11.9 and Gastroparesis K31.84 [facility] [id number] [place] [address] 74033- 1156 Jun, [facility] [id number] [place] [address] 82961- 5901 Jun, Back pain M54.9 [facility] [id number] [place] [address] 89453- 8040 14 Jun, 2016 Neuropathy G62.9 [facility] [address] [place] [address] [id number] 02 Jun, 2016 Encounter for dental examination Z01.20 [facility] [id number] [place] [address] 42471- 8639 01 Jun, 2016 Gastroparesis 536.3 and Anorexia R63.0 [facility] [address] 92509- 7492 27 May, 2016 Other dorsalgia M54.89 [facility] [address] 53274- 9935 10 May, 2016 Periumbilical abdominal pain R10.33 ; Weight loss R63.4 and Gastroparesis K31.84 [facility] [id number] [place] [address] 95925- 6844 May, Back pain M54.9 [facility] [id number] [place] [address] 03533 2548 Apr, Anorexia R63.0 [facility] [address] 28039 2546 Apr, Anorexia R63.0 [facility] [id number] [place] [address] 90915- 4055 Apr, Back pain M54.9 [facility] [id number] [place] [address] 75438 2546 Apr, Back pain M54.9 [facility] [id number] [place] [address] 38870 2546 Apr, [facility] [address] 76989 2546 Apr, Bronchitis J40 and Neuropathy G62.9 [facility] [id number] [place] [address] 08710 2546 Apr, Neuropathy G62.9 [facility] [id number] [place] [address] 87880- 2093 Apr, [facility] [id number] [place] [address] 66301- 6192 Apr, Back pain M54.9 [facility] [id number] [place] [address] 69186- 6931 Mar, Type 2 diabetes mellitus with diabetic autonomic (poly) 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 [facility] [id number] [place] [address] 78649- 6401 Mar, Type 2 diabetes mellitus without complications E11.9 [facility] [id number] [place] [address] 40181- 6737 Mar, Neuropathy G62.9 [place] [id number] [place] [address] 88905- 3839 Mar, [place] [address] 03044- 8159 Mar, Breast cancer screening Z12.39 [place] [address] 30113- 6155 Mar, Other dorsalgia M54.89 [facility] [id number] [place] [address] 90388- 1956 Feb, [facility] [id number] [place] [address] 44453- 6810 Jan, Neuropathy G62.9 ; Type 2 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 ; Uncomplicated asthma, unspecified asthma severity J45.909 and Encounter for immunization Z23 [facility] [id number] [place] [address] 61087- 4249 Jan, [facility] [id number] [place] [address] 50872- 2131 Jan, [facility] [id number] [place] [address] 92460- 5344 Dec, [facility] [id number] [place] [address] 96790- 2906 Dec, [facility] [address] 08457- 3937 Nov, [facility] [address] 89794- 4314 Nov, Back pain M54.9 [facility] [address] 31709- 6578 Nov, Neuropathy G62.9 ; Mixed hyperlipidemia E78.2 ; Type 2 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 and assisted 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 Z79.4 [facility] [id number] [place] [address] 66675- 5714 Oct, [facility] [address] 84068- 0932 Oct, Other dorsalgia M54.89 [facility] [id number] [place] [address] 20950- 3156 September, Primary insomnia F51.01 [facility] [address] 24392- 8195 September, [facility] [id number] [place] [address] 57524- 3286 Aug, Other dorsalgia M54.89 [facility] [id number] [place] [address] 56174- 8695 Jul, [facility] [id number] [place] [address] 09820- 7241 Jul, Other dorsalgia M54.89 [facility] [id number] [place] [address] 48655- 0488 Jul, Diabetes E11.9 ; Back pain M54.9 ; Neuropathy G62.9 and Gastroparesis K31.84 [facility] [address] 23689- 2547 Jun, [facility] [address] [address]- 4102 Jun, Other dorsalgia M54.89 [facility] [id number] [place] [address] 42405 2546 May, [facility] [id number] [place] [address] 09712- 5831 May, Radicular leg pain M54.10 and Other dorsalgia M54.89 [facility] [id number] [place] [address] 71120- 5126 Apr, [facility] [id number] [place] [address] 03429- 9471 Mar, [facility] [id number] [place] [address] 10833- 7729 Mar, [facility] [id number] [place] [address] 69943- 2464 Mar, Radicular leg pain M54.10 [facility] [id number] [place] [address] 76239- 4600 Feb, [facility] [id number] [place] [address] 13491- 7340 Feb, [facility] [id number] [place] [address] 36448- 2077 Feb, [facility] [address] [address]- 254 Jan, [facility] [id number] [place] [address] [phone] 22 Jan, 2015 IBS (irritable bowel syndrome) 564.1 [facility] [id number] [place] [address] [id number] [phone] Jan, [facility] [id number] [place] [address] [phone] Jan, [facility] [id number] [place] [address] [phone]- [phone] Jan, Diabetes mellitus without mention of complication, type II or unspecified type, not stated as uncontrolled 250.00 ; Gastroparesis 536.3 and Hypoacusis 389.9 [facility] [id number] [place] [address] [phone] Jan, [facility] [id number] [place] [address] [phone] Jan, [facility] [id number] [place] [address] [phone]- [phone] Dec, [facility] [id number] [place] [address] [phone]- [phone] Dec, [facility] [address] [id number] [place] [address] 25866- 8422 Dec, [facility] [id number] [place] [address] 84717- 8894 Dec, Back pain 724.5 and Gastroparesis 536.3 [facility] [id number] [place] [address] 80621- 0314 Nov, [facility] [id number] [place] [address] [id number] Nov, Dental examination V72.2 [facility] [id number] [place] [address] 76417- 3556 Nov, [facility] [id number] [place] [address] 32347- 2687 Nov, [facility] [id number] [place] [address] 54093- 2910 Nov, Depressive disorder, not elsewhere classified 311 and No condition on Maxbass II V71.09 [facility] [id number] [place] [address]124- [id number] 07 Emmanuel, 2015 Diabetes 250.00 and Symptomatic menopausal or female climacteric states 627.2 [facility] [address] [address] Oct, [facility] [address] [address] [address] Oct, Lumbar strain 847.2 [facility] [id number] [address] Oct, Gastroparesis 536.3 and Unspecified myalgia and myositis 729.1 [facility] [address] [address] Aug, [facility] [id number] [address] Aug, [facility] [address] [address] Jul, [facility] [address] [address] 7[address] Jul, [facility] [id number] [address] 0175 Jul, [facility] [id number] [address] 2738 Jul, [facility] [address] [address] 5118 Jul, [facility] [id number] [address] 5215 Jun, [facility] [id number] [address] Jun, [facility] [id number] [address] 9967 Jun, [facility] [id number] [address] 7165 May, [facility] [id number] [address]61 May, [facility] [address] [id number] [place] [address] 5185 Mar, [facility] [place] [facility] [address] [id number] [place] [address]- 2946 Mar, [facility] [address] [id number] [place] [address]- 0459 Mar, [facility] [place] [facility] [address] [id number] [place] [address]- 4557 Mar, [facility] [place] [facility] [address] [id number] [place] [address]- 4994 Mar, [facility] [place] [facility] [address] [id number] [place] [address]- 5794 Mar, [facility] [place] [facility] [address] [id number] [place] [address]- 7161 Feb, [facility] [address] [id number] [place] [address]- 7580 Feb, [facility] [place] [facility] [address] [id number] [place] [address]- 1075 Nov, [facility] [address] [id number] [place] [address]- 9677 Nov, [facility] [place] [facility] [address] [id number] [place] [address]- 6376 Nov, [facility] [place] [facility] [address] [id number] [place] [address]- 5262 Oct, [facility] [place] [facility] [address] [id number] [place] [address]- 3139 September, [facility] [place] [facility] [address] [id number] [place] [address]- 7212 Aug, [facility] [place] [facility] [address] [id number] [place] [address] 15 Aug, 2012 [facility] [address] [id number] [place] [address]- 4768 Aug, [facility] [place] [facility] [address] [id number] [place] [address]- 1195 Aug, [facility] [place] [facility] [address] [id number] [place] [address]- 1578 Aug, [facility] [place] [facility] [address] [id number] [place] [address]- 8280 Aug, [facility] [address] [id number] [place] [address]- 1401 Aug, [facility] [place] [facility] [address] [id number] [place] [address]- 8144 Aug, [facility] [place] [facility] [address] [facility] [id number] [place] [address]- 0810 Jul, [facility] [place] [facility] [address] [id number] [address]- 6163 Jul, [facility] [place] [facility] [address] [id number] [place] [address]- 4464 Jun, [facility] [place] [facility] [address] [id number][place] [address]- 3325 Jun, [facility] [place] [facility] [address] [id number] [address]- 8331 Jun, [facility] [place] [facility] [address] [id number][place] [address]- 6107 Jun, [facility] [place] [facility] [address] [id number] [place] [address]- 5142 Jun, [facility] [place] [facility] [address] [id number] [address]- 5600 Jun, [facility] [place] [facility] [address] [facility] [id number], [place] [address]- 6679 Jun, [facility] [place] [facility] [address] [facility] [id number][place] [address]- 1168 May, [facility] [id number] [address]- 7761 May, [facility] [id number] [address]- 0428 May, [facility] [id number] [address]- 8709 May, [facility] [id number] [address]- 3285 Mar, [facility] [address] [address]- 3148 Mar, [facility] [id number] [address]- 6209 Jan, IMMUNIZATIONS No Known Immunizations SOCIAL HISTORY Never Assessed REASON FOR VISIT intake PLAN OF CARE Activity Details Follow Up Next Available Reason: Follow-up VITAL SIGNS MEDICATIONS Medication Instructions Dosage Frequency Start Date End Date Duration Status Cyclobenzaprine HCl 10 TAKE 1 TABLET BY MOUTH THREE TIMES DAILY 30 Unknown Duloxetine HCl 60 MG Orally Once a day 1 capsule 24h 30 days Unknown Nicotine 14 MG/24HR Transdermal Once a day for 6 weeks 1 patch to skin Oct, Nov, 42 days Unknown Tizanidine HCl 4 MG Orally 2 times a day 1 tablet 12h 30 Unknown Wellbutrin SR 100 MG Orally Once a day 1 tablet in the morning 24h Oct, 30 day(s) Unknown Microlet Lancets 0 USE DIRECTED THREE TIMES DAILY 30 Unknown Promethazine HCl 25 MG Orally every 6 hours 1 tablet 6h 30 Unknown Humalog KwikPen 100 INJECT 5 UNITS SUB-Q THREE TIMES DAILY BOFORE MEALS Unknown Lyrica 150 MG Orally Twice a day 1 capsule 12h 30 days Unknown Zofran ODT 8 MG DISSOLVE ONE TABLET ON THE TONGUE EVERY 6 HOURS 5 Unknown Ayden Contour Next Test - subcutaneously 3 times a day test blood sugar 8h Unknown Lantus SoloStar 100 8 units 12h Unknown Comfort Lancets - as directed 8h Mar, Unknown SudoGest 60 mg Orally every 6 hrs 1 tablet as needed 6h September, 07 days Unknown Neurontin 600 MG Orally Three times a day 1 capsule 8h Unknown Marinol 5 mg Orally Twice a day 1 capsule before lunch and supper 12h 28 days Unknown Maxalt 5 mg Orally daily as needed Take 1 tablet when headache begins; repeat in 2 hours if not better. Not to take more than 30 mg daily September, 30 days Unknown Atorvastatin Calcium 40 MG TAKE ONE TABLET BY MOUTH ONCE DAILY (LAST REFILL MUST HAVE LABS) 30 Unknown Multiple Vitamins-Iron - Orally Once a day 1 tablet 24h Unknown Ondansetron 8 MG DISSOLVE ONE (1) TABLET ON THE TONGUE EVERY SIX (6) HOURS 5 Unknown Xarelto 20 mg 1 Tablet by Oral route 1 time per day Jul, Unknown Cymbalta 30 MG Orally Once a day (take with 60mg cap) 1 capsule September, 30 days Unknown Calcium 600-200 MG-UNIT Unknown Doxepin HCl 10 MG Orally Once a day 1 capsule at bedtime 24h September, 30 days Unknown Omeprazole 40 mg 1 CAP(S) ONCE A DAY ORALLY 30 DAYS 30 Unknown Nicotine 7 MG/24HR Transdermal Once a day 1 patch to skin 24h Oct, Nov, 14 days Unknown Vitamin D-3 1000 UNIT Orally Once a day 2 capsule 24h Unknown MiraLax - Orally Once a day as needed 1 packet mixed with 8 ounces of fluid Unknown Oxycodone-Acetaminophen 10-325 MG Orally 4 times a day 1 tablet as needed 6h 15 Oct, 2017 28 days Unknown Quad Cane - as directed 24h 12 Apr, 2016 Unknown Cyanocobalamin 1000 MCG Orally Once a day 1 tablet 24h Unknown ProAir HFA 108 INHALE 2 PUFFS BY MOUTH FOUR TIMES DAILY NEEDED 25 Unknown RESULTS No Results PROCEDURES Procedure Date Ordered Result Body Site Psych diagnostic evaluation, established patient November 19, 2017 INSTRUCTIONS MEDICATIONS ADMINISTERED No Known Medications MEDICAL (GENERAL) HISTORY Type Description Date Medical History umbilical hernia Medical History pulmonary emboli Medical History asthma Medical History depression Medical History anxiety Medical History diabetes type II Medical History bowel obstruction 2008 Medical History HSV1 Surgical History bowel obstruction 2008 Surgical History umblical hernia x 8 Surgical History appendectomy 1987 Surgical History hysterectomy 2006 Surgical History EGD 2016 Hospitalization History Nervous breakdown 2008 Hospitalization History pulmonary emboli and pneumonia 2014 Hospitalization History High blood sugar 2016 Hospitalization History DKA, vomitting-[facility] 03/05/17 Hospitalization History hospital stay at [facility] for stomach issues 2016
--- OUTSIDE RECORDS SUMMARY | 2018-01-27 19:47 | XMS REPORT ---
Author Author HORACE HIGGINS [facility] Address [address] [place] [address] Care Team Providers Care Boot Trimmer Name Role Phone HORACE HIGGINS Unavailable PROBLEMS Type Condition ICD9-CM Code THH30-BX Code Onset Dates Condition Status SNOMED Code Problem Primary insomnia F51.01 Active 6879152 Problem Reactive depression F32.9 Active 84135774 Problem Asthma exacerbation J45.901 Active 789051420 Problem Irritable bowel syndrome with constipation K58.1 Active 364735541 Problem Back pain M54.9 Active 072691501 Problem Tobacco dependency F17.200 Active 27129604 Problem Low TSH level R94.6 Active 112160975 Problem PTSD (post-traumatic stress disorder) F43.10 Active 06052321 Problem Diabetic polyneuropathy associated with type 2 diabetes mellitus E11.42 Active 11058547 Problem Annual physical exam Z00.00 Active 774820104 Problem Migraine without aura and without status migrainosus, not intractable G43.009 Active 867616522 Problem Gastroparesis K31.84 Active 946644054 Problem 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 370114850 Problem Neuropathy G62.9 Active 969859631 Problem Diabetes E11.9 Active 05214023 Problem Uncomplicated asthma, unspecified asthma severity J45.909 Active 688381104 Problem Anorexia R63.0 Active 20919301 Problem Mixed hyperlipidemia E78.2 Active 451454467 Problem Weight loss R63.4 Active 702136315 Problem Type 2 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 Active 39517557 Problem History of colon polyps Z86.010 Active 118846193 ALLERGIES No Information ENCOUNTERS Encounter Location Date Diagnosis [facility] [address] [facility] [id number] [address] Jan, [facility] [address] [id number] [address] Jan, [place] [id number] [place] [address] 17711- 0165 Jan, [place] [address] 41862- 2668 Dec, Right upper quadrant abdominal pain R10.11 [place] [id number] [place] [address] 15464- 7246 Dec, PTSD (post-traumatic stress disorder) F43.10 [place] [id number] [place] [address] 83649- 0940 Dec, LLQ pain R10.32 [place] [address] 35942- 2347 Dec, Other dorsalgia M54.89 [place] [id number] [place] [address] 34562- 1750 Dec, Neuropathy G62.9 [place] [id number] [place] [address] 74120- 0871 Dec, [place] [address] 77751- 1814 Nov, Irritable bowel syndrome with constipation K58.1 ; Uncomplicated asthma, unspecified asthma severity J45.909 and Type 2 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 [facility] [id number] [place] [address] [id number] Nov, Dental examination Z01.20 [place] [id number] [place] [address] 07513- 6043 Nov, Other dorsalgia M54.89 [place] [address] 67633- 5098 Nov, LLQ pain R10.32 ; Low TSH level R94.6 and Gastroparesis K31.84 [place] [address] 55208- 5338 Nov, Anorexia R63.0 [place] [id number] [place] [address] 30437- 9804 Nov, Asthma exacerbation J45.901 [place] [id number] [place] [address] 65075- 7651 Oct, PTSD (post-traumatic stress disorder) F43.10 [place] [address] 682242- 5517 Oct, [place] [address] 22786- 1630 Oct, PTSD (post-traumatic stress disorder) F43.10 and Tobacco dependency F17.200 [place] [address] 33973- 0786 Oct, [place] [address] 62037- 1960 Oct, Other dorsalgia M54.89 [place] [address] 75849- 9498 Oct, Anorexia R63.0 [place] [address] 88518- 4488 September, PTSD (post-traumatic stress disorder) F43.10 [place] [id number] [place] [address] 80234- 7674 September, Low TSH level R94.6 [place] [address] 84209- 3819 September, Other dorsalgia M54.89 [place] [address] 68645- 6304 September, Annual physical exam Z00.00 and Migraine without aura and without status migrainosus, not intractable G43.009 [place] [address] 61991- 3187 September, Abnormal TSH R94.6 and Dysfunction of left eustachian tube H69.82 [facility] [id number] [place] [address] 82691- 5196 Aug, [facility] [id number] [place], [place] [address] 8[address] Aug, Anorexia R63.0 [facility] [id number] [place] [address] [id number] Aug, Dental examination Z01.20 and Xerostomia K11.7 [facility] [address] 40028 7998 Aug, Neuropathy G62.9 [place] [address] 64831 9321 Aug, [place] [address] 98322- 1296 Aug, Other dorsalgia M54.89 [place] [id number] [place] [address] 45795- 8339 Aug, Type 2 diabetes mellitus with diabetic autonomic (poly) 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 ; Diabetic polyneuropathy associated with type 2 diabetes mellitus E11.42 ; Bronchitis J40 ; Gastroparesis K31.84 and Reactive depression F32.9 [place] [id number] [place] [address] 06535- 7644 Aug, PTSD (post-traumatic stress disorder) F43.10 [place] [id number] [place] [address] 13993- 7058 Aug, Other dorsalgia M54.89 and Anorexia R63.0 [place] [id number] [place] [address] 67841- 9200 Jul, [facility] [id number] [place] [address] 53209- 3003 Jul, Other dorsalgia M54.89 [place] [address] 73347- 6421 Jul, [facility] [address] [place] [address] 70154- 9540 Jul, [facility] [id number] [place] [address] 83824- 9956 Jul, PTSD (post-traumatic stress disorder) F43.10 [facility] [id number] [place] [address] 39518- 2946 Jul, [facility] [id number] [place] [address] 71040- 1635 Jul, [facility] [id number] [place] [address] 28089- 1565 Jul, [facility] [id number] [place] [address] 98424- 0430 Jul, Anorexia R63.0 [facility] [id number] [place] [address] 37726- 2910 Jun, [facility] [id number] [place] [address] 92556- 3210 Jun, Vaginal discharge N89.8 ; Visit for gynecologic examination Z01.419 and Pelvic pressure in female R10.2 [facility] [id number] [place] [address] 37005- 6213 Jun, [facility] [id number] [place] [address] 83773- 0834 Jun, Other dorsalgia M54.89 [facility] [id number] [place] [address] 43104- 0876 Jun, [facility] [id number] [place] [address] 29028- 4296 Jun, [facility] [id number] [place] [address] 170175- 7546 Jun, [facility] [id number] [place] [address] 47990- 3118 May, Back pain M54.9 [facility] [id number] [place] [address] 63020- 9100 May, Anorexia R63.0 [facility] [address] 90868- 4184 May, Other dorsalgia M54.89 [facility] [address] 77466- 1282 May, [facility] [address] 40707- 6404 May, Bronchitis J40 [place] [address] 75250- 1489 May, Type 2 diabetes mellitus with diabetic autonomic (poly) 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 ; 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 ; Back pain M54.9 and Neuropathy G62.9 [place] [address] 66474- 9756 May, Left breast mass N63.20 [facility] [id number] [place] [address] 35822- 5609 May, [facility] [address] 94875- 2938 Apr, Other dorsalgia M54.89 [facility] [id number] [place] [address] 17197- 3231 Apr, Anorexia R63.0 [facility] [id number] [place] [address] 03427- 1859 Apr, Anorexia R63.0 [facility] [address] 31435- 5565 Apr, Mass of left breast N63.20 [facility] [id number] [place] [address] 42591- 3975 Apr, [facility] [address] 82058- 4533 Apr, [facility] [id number] [place] [address] 05339- 6862 14 Apr, 2017 Diarrhea of presumed infectious origin A09 [facility] [id number] [place] [address] 32107- 3676 Apr, Encounter for immunization Z23 [facility] [id number] [place] [address] 51443 2546 Apr, [facility] [id number] [place] [address] 65373 2549 Mar, Other dorsalgia M54.89 [facility] [id number] [place] [address] 80444- 9226 Mar, [facility] [id number] [place] [address] 81041- 7131 Mar, [facility] [id number] [place] [address] 47043- 3942 Mar, Anorexia R63.0 [facility] [id number] [place] [address] 66799- 6506 Mar, [facility] [id number] [place] [address] 62663- 8689 Mar, Other dorsalgia M54.89 [facility] [id number] [place] [address] 63709- 7367 Mar, [facility] [id number] [place] [address] 43943 254 Mar, Encounter for immunization Z23 [facility] [id number] [place] [address] 41442- 4564 Feb, Anorexia R63.0 [facility] [id number] [place] [address] 62515- 0754 Feb, Diabetes E11.9 [facility] [id number] [place] [address] 06099- 3400 Feb, Back pain M54.9 and Diabetes E11.9 [facility] [id number] [place] [address] 31724- 8102 Feb, Diabetes E11.9 [facility] [id number] [place] [address] 27323- 1927 Feb, Neuropathy G62.9 [facility] [address] 21108- 3337 Feb, Encounter for immunization Z23 ; Epigastric pain R10.13 ; Weight loss, abnormal R63.4 and Neuropathy G62.9 [facility] [address] [id number] Feb, [facility] [id number] [place] [address] 80640- 5544 Feb, [facility] [address] 96535- 6124 Feb, Intractable vomiting with nausea, unspecified vomiting type R11.2 [facility] [id number] [place] [address] 89672 -6077 Feb, Chronic nausea R11.0 [facility] [id number] [place] [address] 55642- 7609 Feb, Other dorsalgia M54.89 [facility] [id number] [place] [address] 59251- 4800 Jan, [facility] [id number] [place] [address] 26808- 1834 Jan, [facility] [id number] [place] [address] 44534- 9225 Jan, [facility] [id number] [place] [address] 89864- 9183 Jan, [facility] [id number] [place] [address] 14748- 6798 08 Sep, 2017 Asthma exacerbation J45.901 ; Bronchitis J40 and Neuropathy G62.9 [facility] [id number] [place] [address] 13013- 3453 06 Jan, 2017 Anorexia R63.0 [facility] [id number] [place] [address] 85182- 5396 Jan, Other dorsalgia M54.89 [facility] [id number] [place] [address] 04871- 8046 Dec, [facility] [id number] [place] [address] 56085- 9811 Dec, [facility] [id number] [place] [address] 06002- 0538 Dec, Anorexia R63.0 [facility] [id number] [place] [address] 98135- 8286 Dec, Primary insomnia F51.01 [facility] [id number] [place] [address] 97151- 2818 Dec, Other dorsalgia M54.89 [facility] [id number] [place] [address] 56837- 6897 Dec, [facility] [id number] [place] [address] 25660- 6956 Nov, [facility] [id number] [place] [address] 80665- 1792 Nov, [facility] [id number] [place] [address] 37251- 5017 Nov, [facility] [id number] [place] [address] 54271- 1631 Nov, History of colon polyps Z86.010 [facility] [id number] [place] [address] 31111- 7033 Nov, Weight loss R63.4 ; Nausea and vomiting, intractability of vomiting not specified, unspecified vomiting type R11.2 and Abnormal LFTs R79.89 [facility] [id number] [place] [address] 83396- 0932 18 Nov, 2016 [facility] [id number] [place] [address] 75005- 6716 Nov, Neuropathy G62.9 and Pain in right knee M25.561 [facility] [id number] [place] [address] 55166- 3796 12 Nov, 2016 Back pain M54.9 [facility] [id number] [place] [address] 53370- 5785 10 Nov, 2016 [facility] [id number] [place] [address] 85467- 5053 Nov, Bronchitis J40 [facility] [id number] [place] [address] 72550- 1856 Nov, Weight loss R63.4 [facility] [id number] [place] [address] 51439- 5805 Oct, Back pain M54.9 [facility] [id number] [place] [address] 06725- 2114 16 Oct, 2016 [facility] [id number] [place] [address] 86897- 0721 Oct, Back pain M54.9 [facility] [address] [place] [address] 09796- 4107 Oct, Type 2 diabetes mellitus without complications E11.9 and Bronchitis J40 [facility] [address] [place] [address] 91230 2548 05 Oct, 2016 [facility] [id number] [place] [address] 05004 2546 Oct, [facility] [address] [place] [address] 95616- 2414 September, Gastroparesis K31.84 ; Type 2 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 and Neuropathy G62.9 [facility] [id number] [place] [address] 64602- 1634 September, Other dorsalgia M54.89 [facility] [id number] [place] [address] 14441- 5464 September, [facility] [id number] [place] [address] 22557- 4488 September, [facility] [address] 80462- 6200 Aug, Gastroparesis K31.84 and Radicular leg pain M54.10 [facility] [address] 93433- 0674 Aug, Anorexia R63.0 [facility] [address] 04235- 4922 Aug, Bronchitis J40 [facility] [address] 71768- 9108 Aug, Back pain M54.9 [facility] [id number] [place] [address] 17482- 8368 Aug, Routine gynecological examination Z01.419 ; Routine screening for STI (sexually transmitted infection) Z11.3 and Yeast infection of the vagina B37.3 [facility] [id number] [place] [address] 96751- 0300 Jul, Other dorsalgia M54.89 [facility] [id number] [place] [address] 76302- 7605 Jul, Diabetes E11.9 and Gastroparesis K31.84 [facility] [id number] [place] [address] 01926- 3442 Jun, [facility] [id number] [place] [address] 85899- 3097 Jun, Back pain M54.9 [facility] [id number] [place] [address] 09221- 1612 14 Jun, 2016 Neuropathy G62.9 [facility] [address] [place] [address] [id number] 02 Jun, 2016 Encounter for dental examination Z01.20 [facility] [id number] [place] [address] 68711- 2540 01 Jun, 2016 Gastroparesis 536.3 and Anorexia R63.0 [facility] [address] 59572 254 May, Other dorsalgia M54.89 [facility] [address] 081620- 7358 10 May, 2016 Periumbilical abdominal pain R10.33 ; Weight loss R63.4 and Gastroparesis K31.84 [facility] [id number] [place] [address] 21669- 0575 May, Back pain M54.9 [facility] [id number] [place] [address] 69615 2546 Apr, Anorexia R63.0 [facility] [address] 46787 2546 Apr, Anorexia R63.0 [facility] [id number] [place] [address] 50024 2542 Apr, Back pain M54.9 [facility] [id number] [place] [address] 21746 2546 Apr, Back pain M54.9 [facility] [id number] [place] [address] 29983 2546 Apr, [facility] [address] 75718 2546 Apr, Bronchitis J40 and Neuropathy G62.9 [facility] [id number] [place] [address] 51887 2546 Apr, Neuropathy G62.9 [facility] [id number] [place] [address] 50565- 9749 Apr, [facility] [address] 67147- 9798 Apr, Back pain M54.9 [facility] [address] 38159- 6365 Mar, Type 2 diabetes mellitus with diabetic autonomic (poly) 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 [facility] [address] 62364- 2658 Mar, Type 2 diabetes mellitus without complications E11.9 [place] [address] 53143- 8502 Mar, Neuropathy G62.9 [place] [address] 59778- 2821 Mar, [place] [address] 62399- 3649 Mar, Breast cancer screening Z12.39 [place] [address] 97591- 6617 Mar, Other dorsalgia M54.89 [facility] [address] 85733- 1640 Feb, [place] [address] 32705- 2708 Jan, Neuropathy G62.9 ; Type 2 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 ; Uncomplicated asthma, unspecified asthma severity J45.909 and Encounter for immunization Z23 [place] [address] 28175- 6987 Jan, [facility] [address] 83883- 6315 Jan, [place] [address] 07258- 2425 Dec, [facility] [id number] [place] [address] 18615- 6781 Dec, [facility] [id number] [place] [address] 50534- 4191 Nov, [facility] [id number] [place] [address] 04164- 4218 Nov, Back pain M54.9 [facility] [id number] [place] [address] 78932- 7955 Nov, Neuropathy G62.9 ; Mixed hyperlipidemia E78.2 ; Type 2 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 and 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 [facility] [id number] [place] [address] 96682- 5170 Oct, [facility] [id number] [place] [address] [phone]- [phone] Oct, Other dorsalgia M54.89 [facility] [id number] [place] [address] 48096- [phone] September, Primary insomnia F51.01 [facility] [id number] [place] [address] [phone] September, [facility] [id number] [place] [address] [phone]- [phone] Aug, Other dorsalgia M54.89 [facility] [id number] [place] [address] [phone]- [phone] Jul, [facility] [id number] [place] [address] [id number]- [phone] Jul, Other dorsalgia M54.89 [facility] [id number] [place] [address] [phone]- [phone] Jul, Diabetes E11.9 ; Back pain M54.9 ; Neuropathy G62.9 and Gastroparesis K31.84 [facility] [id number] [place] [address] [phone]- [phone] Jun, [facility] [id number] [place] [address] [phone]- [phone] Jun, Other dorsalgia M54.89 [facility] [id number] [place] [address] [phone] May, [facility] [id number] [place] [address] [phone]- [phone] May, Radicular leg pain M54.10 and Other dorsalgia M54.89 [facility] [id number] [place] [address] [phone]- [phone] Apr, [facility] [id number] [place] [address] [phone]- [phone] Mar, [facility] [id number] [place] [address] [phone]- [phone] Mar, [facility] [id number] [place] [address] [phone]- [phone] Mar, Radicular leg pain M54.10 [facility] [id number] [place] [address] [phone]- [phone] Feb, [facility] [id number] [place] [address] [phone]- [phone] Feb, [facility] [id number] [place] [address] [phone]- [phone] Feb, [facility] [id number] [place] [address] [phone]- [phone] Jan, [facility] [facility] [place] [facility] [id number] [place] [address] [id number]- 0844 22 Jan, 2015 IBS (irritable bowel syndrome) 564.1 [facility] [place] [facility] [id number] [place] [address] 18848- 3301 Jan, [facility] [place] [facility] [id number] [place] [address] 62243- 3678 Jan, [facility] [id number] [place] [address] [id number]- 1227 Jan, Diabetes mellitus without mention of complication, type II or unspecified type, not stated as uncontrolled 250.00 ; Gastroparesis 536.3 and Hypoacusis 389.9 [facility] [id number] [place] [address] 39421- 2825 Jan, [facility] [id number] [place] [address] [id number]- 3068 Jan, [facility] [id number] [place] [address] 61470- 1109 Dec, [facility] [id number] [place] [address] 27836- 2755 Dec, [facility] [id number] [place] [address] 73637- 7478 Dec, [facility] [id number] [place] [address] 77083- 4228 Dec, Back pain 724.5 and Gastroparesis 536.3 [facility] [id number] [place] [address] 76504- 9753 Nov, [facility] [place] [facility] [id number] [place] [address] [id number] Nov, Dental examination V72.2 [facility] [id number] [place] [address] 91736- 1546 Nov, [facility] [id number] [place] [address] 12724- 9406 Nov, [facility] [id number] [place] [address] 92329- 8322 Nov, Depressive disorder, not elsewhere classified 311 and No condition on [place] II V71.09 [facility] [id number] [place] [address] 71286- 6583 Nov, Diabetes 250.00 and Symptomatic menopausal or female climacteric states 627.2 [facility] [id number] [address] Oct, [facility] [id number] [address] Oct, Lumbar strain 847.2 [facility] [id number] [address] 3689 Oct, Gastroparesis 536.3 and Unspecified myalgia and myositis 729.1 [facility] [address] [address] 9927 Aug, [facility] [id number] [place] [address] 76909- 0279 Aug, [facility] [id number], [place] [address] 0858 Jul, [facility] [id number] [address] 5246 Jul, [facility] [id number], [place] [address] 4050 Jul, [facility] [id number], [place] [address] 4930 Jul, [facility] [id number], [place] [address] 7471 Jul, [facility] [id number], [place] [address] 9945 Jun, [facility] [id number] 4588 Jun, [facility] [id number] 0687 Jun, [facility] [id number], [place] [address] 5946 May, [facility] [place] [facility] [address] [facility] [id number] [place] [address]- 7387 May, [facility] [place] [facility] [address] [id number] [place] [address]- 1151 Mar, [facility] [place] [facility] [address] [id number] [place] [address]- 3172 Mar, [facility] [place] [facility] [address] [id number] [place] [address]- 2856 Mar, [facility] [place] [facility] [address] [id number] [place] [address]- 9371 Mar, [facility] [place] [facility] [address] [id number] [place] [address]- 9993 Mar, [facility] [place] [facility] [address] [id number] [place] [address]- 9741 Mar, [facility] [place] [facility] [address] [id number] [place] [address]- 0744 Feb, [facility] [place] [facility] [address] [id number] [place] [address]- 9938 Feb, [facility] [place] [facility] [address] [id number] [place] [address]- 5040 Nov, [facility] [place] [facility] [address] [id number] [place] [address]- 2236 Nov, [facility] [place] [facility] [address] [id number] [place] [address]- 0087 Nov, [facility] [place] [facility] [address] [id number] [place] [address]- 4586 Oct, [facility] [place] [facility] [address] [id number] [place] [address]- 3268 September, [facility] [place] [facility] [address] [id number] [place] [address]- 6676 Aug, [facility] [place] [facility] [address] [id number] [place] [address]- 8883 Aug, [facility] [address] [id number] [place] [address]- 0407 Aug, [facility] [place] [facility] [address] [id number] [place] [address]- 2256 Aug, [facility] [place] [facility] [address] [id number] [place] [address]- 7460 Aug, [facility] [place] [facility] [address] [id number] [place] [address]- 4988 Aug, [facility] [place] [facility] [address] [id number] [place] [address]- 1841 Aug, [facility] [place] [facility] [address] [id number] [place] [address]- 2913 Aug, [facility] [place] [facility] [id number] [place] [address]- 6962 Jul, [facility] [place] [facility] [address] [id number], [place] [address]- 2919 Jul, [facility] [place] [facility] [address] [id number] [place] [address]- 2397 Jun, [facility] [place] [facility] [address] [id number], [place] [address]- 5074 Jun, [facility] [place] [facility] [address] [id number], [place] [address]- 7092 Jun, [facility] [place] [facility] [address] [id number], [place] [address]- 9888 Jun, [facility] [place] [facility] [address] [id number] [place] [address]- 2801 Jun, [facility] [place] [facility] [address] [id number], [place] [address]- 0932 Jun, [facility] [place] [facility] [address] [facility] [id number], [place] [address]- 8931 04 Jun, 2012 [facility] [place] [facility] [address] [facility] [id number] [place] [address]- 9645 31 May, 2012 [facility] [address] [facility] [id number], [place] [address]- 0612 May, [facility] [address] [id number], [place] [address]- 5547 May, [facility] [address] [facility] [id number], [place] [address]- 7203 May, [facility] [address] [id number] [address]- 2203 Mar, [facility] [address] [facility] [id number], [place] [address]- 2293 Mar, [facility] [address] [facility] [id number], [place] [address]- 9503 Jan, IMMUNIZATIONS No Known Immunizations SOCIAL HISTORY Never Assessed REASON FOR VISIT Requests return call PLAN OF CARE VITAL SIGNS MEDICATIONS Unknown [...] High blood sugar 2016 [facility] History [facility], [facility] Hospitalization History hospital stay at [facility] for stomach issues 2016
--- OUTSIDE RECORDS SUMMARY | 2018-01-27 19:48 | XMS REPORT ---
Author Author HORACE HIGGINS [facility] Address [address] [place] [address] Care Team Providers Care Hr Payroll Coordinator Name Role Phone HORACE HIGGINS Unavailable PROBLEMS Type Condition ICD9-CM Code XUY74-FD Code Onset Dates Condition Status SNOMED Code Problem Primary insomnia F51.01 Active 9348762 Problem Reactive depression F32.9 Active 15659079 Problem Asthma exacerbation J45.901 Active 513623794 Problem Irritable bowel syndrome with constipation K58.1 Active 744631499 Problem Back pain M54.9 Active 570611410 Problem Tobacco dependency F17.200 Active 71022828 Problem Low TSH level R94.6 Active 829652293 Problem PTSD (post-traumatic stress disorder) F43.10 Active 13346365 Problem Diabetic polyneuropathy associated with type 2 diabetes mellitus E11.42 Active 92515354 Problem Annual physical exam Z00.00 Active 601382048 Problem Migraine without aura and without status migrainosus, not intractable G43.009 Active 121935085 Problem Gastroparesis K31.84 Active 748025596 Problem 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 Active 728798018 Problem Neuropathy G62.9 Active 441636109 Problem Diabetes E11.9 Active 11942192 Problem Uncomplicated asthma, unspecified asthma severity J45.909 Active 249481724 Problem Anorexia R63.0 Active 73980159 Problem Mixed hyperlipidemia E78.2 Active 177507347 Problem Weight loss R63.4 Active 836846335 Problem Type 2 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 Active 25527644 Problem History of colon polyps Z86.010 Active [id number] ALLERGIES No Information ENCOUNTERS Encounter Location Date Diagnosis [facility] [address] [id number] [address] Jan, [facility] [address] [id number] [address] Jan, [place] [id number] [place] [address] 64862- 7891 Jan, [place] [address] 16579- 5683 Dec, Right upper quadrant abdominal pain R10.11 [place] [id number] [place] [address] 15516- 6317 Dec, PTSD (post-traumatic stress disorder) F43.10 [place] [id number] [place] [address] 72367- 8905 Dec, LLQ pain R10.32 [place] [address] 97543- 3585 Dec, Other dorsalgia M54.89 [place] [id number] [place] [address] 87518- 6001 Dec, Neuropathy G62.9 [place] [id number] [place] [address] 41474- 9381 Dec, [place] [address] 04859- 8998 Nov, Irritable bowel syndrome with constipation K58.1 ; Uncomplicated asthma, unspecified asthma severity J45.909 and Type 2 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 [facility] [address] [place] [address] [id number] Nov, Dental examination Z01.20 [place] [id number] [place] [address] 62149- 2813 Nov, Other dorsalgia M54.89 [place] [address] 65466- 3040 Nov, LLQ pain R10.32 ; Low TSH level R94.6 and Gastroparesis K31.84 [place] [address] 96673- 7868 Nov, Anorexia R63.0 [place] [id number] [place] [address] 89393- 4170 Nov, Asthma exacerbation J45.901 [place] [id number] [place] [address] 21039- 5549 Oct, PTSD (post-traumatic stress disorder) F43.10 [place] [address] 362484- 1689 Oct, [place] [address] 51103- 5731 Oct, PTSD (post-traumatic stress disorder) F43.10 and Tobacco dependency F17.200 [place] [address] 85793- 5726 Oct, [place] [address] 72210- 1648 Oct, Other dorsalgia M54.89 [place] [address] 05095- 8418 Oct, Anorexia R63.0 [place] [address] 47777- 6882 September, PTSD (post-traumatic stress disorder) F43.10 [place] [id number] [place] [address] 86509- 0659 September, Low TSH level R94.6 [place] [address] 60398- 6514 September, Other dorsalgia M54.89 [place] [address] 38316- 8940 September, Annual physical exam Z00.00 and Migraine without aura and without status migrainosus, not intractable G43.009 [place] [address] 74576- 4513 September, Abnormal TSH R94.6 and Dysfunction of left eustachian tube H69.82 [facility] [id number] [place] [address] 80175- 0416 Aug, [facility] [id number] [place] [address] [address] Aug, Anorexia R63.0 [facility] [id number] [place] [address] [id number] Aug, Dental examination Z01.20 and Xerostomia K11.7 [facility] [address] 23141 7021 Aug, Neuropathy G62.9 [place] [address] 18061 2229 Aug, [place] [address] 14880- 7434 Aug, Other dorsalgia M54.89 [place] [id number] [place] [address] 73925- 5258 Aug, Type 2 diabetes mellitus with diabetic autonomic (poly) 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 ; Diabetic polyneuropathy associated with type 2 diabetes mellitus E11.42 ; Bronchitis J40 ; Gastroparesis K31.84 and Reactive depression F32.9 [place] [id number] [place] [address] 67724- 2448 Aug, PTSD (post-traumatic stress disorder) F43.10 [place] [id number] [place] [address] 51194- 2426 Aug, Other dorsalgia M54.89 and Anorexia R63.0 [place] [id number] [place] [address] 45165- 8533 Jul, [facility] [id number] [place] [address] 25047- 3432 Jul, Other dorsalgia M54.89 [place] [address] 60148- 4370 Jul, [facility] [address] [place] [address] 85026- 6739 Jul, [facility] [id number] [place] [address] 17322- 9326 Jul, PTSD (post-traumatic stress disorder) F43.10 [facility] [id number] [place] [address] 81752- 9096 Jul, [facility] [id number] [place] [address] 57892- 0008 Jul, [facility] [id number] [place] [address] 69716- 4277 Jul, [facility] [id number] [place] [address] 86957- 7087 Jul, Anorexia R63.0 [facility] [id number] [place] [address] 22848- 8391 Jun, [facility] [id number] [place] [address] 47800- 1690 Jun, Vaginal discharge N89.8 ; Visit for gynecologic examination Z01.419 and Pelvic pressure in female R10.2 [facility] [id number] [place] [address] 04366- 3979 Jun, [facility] [id number] [place] [address] 68388- 5016 Jun, Other dorsalgia M54.89 [facility] [id number] [place] [address] 29958- 3116 Jun, [facility] [id number] [place] [address] 14102- 3896 Jun, [facility] [id number] [place] [address] 410645- 3276 Jun, [facility] [id number] [place] [address] 25842- 3903 May, Back pain M54.9 [facility] [id number] [place] [address] 98728- 4775 May, Anorexia R63.0 [facility] [address] 10506- 8840 May, Other dorsalgia M54.89 [facility] [address] 10190- 7100 May, [facility] [address] 31236- 1919 May, Bronchitis J40 [place] [address] 19223- 6355 May, Type 2 diabetes mellitus with diabetic autonomic (poly) 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 ; 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 ; Back pain M54.9 and Neuropathy G62.9 [place] [address] 22069- 2991 May, Left breast mass N63.20 [facility] [id number] [place] [address] 74039- 5326 May, [facility] [address] 53645- 7479 Apr, Other dorsalgia M54.89 [facility] [id number] [place] [address] 18952- 9582 Apr, Anorexia R63.0 [facility] [id number] [place] [address] 62616- 6403 Apr, Anorexia R63.0 [facility] [address] 44978- 9981 Apr, Mass of left breast N63.20 [facility] [id number] [place] [address] 42937- 6910 Apr, [facility] [address] 45400- 7840 Apr, [facility] [address] [place] [address] 26812- 7737 14 Apr, 2017 Diarrhea of presumed infectious origin A09 [facility] [id number] [place] [address] 60329- 3736 Apr, Encounter for immunization Z23 [facility] [id number] [place] [address] 54064 2546 Apr, [facility] [id number] [place] [address] 69914 2543 Mar, Other dorsalgia M54.89 [facility] [id number] [place] [address] 10340- 9586 Mar, [facility] [id number] [place] [address] 56005- 0774 Mar, [facility] [id number] [place] [address] 24554- 9437 Mar, Anorexia R63.0 [facility] [id number] [place] [address] 30911- 4476 Mar, [facility] [id number] [place] [address] 01124- 4922 Mar, Other dorsalgia M54.89 [facility] [id number] [place] [address] 65526- 2249 Mar, [facility] [id number] [place] [address] 69542 2541 Mar, Encounter for immunization Z23 [facility] [id number] [place] [address] 64513- 5651 Feb, Anorexia R63.0 [facility] [id number] [place] [address] 15335- 4382 Feb, Diabetes E11.9 [facility] [id number] [place] [address] 29830- 3429 Feb, Back pain M54.9 and Diabetes E11.9 [facility] [id number] [place] [address] 89638- 1679 Feb, Diabetes E11.9 [facility] [id number] [place] [address] 23206- 2348 Feb, Neuropathy G62.9 [facility] [address] 08582- 2348 Feb, Encounter for immunization Z23 ; Epigastric pain R10.13 ; Weight loss, abnormal R63.4 and Neuropathy G62.9 [facility] [address] [id number] Feb, [facility] [id number] [place] [address] 55325- 6399 Feb, [facility] [address] 14947- 4932 Feb, Intractable vomiting with nausea, unspecified vomiting type R11.2 [facility] [id number] [place] [address] 71874 -5019 Feb, Chronic nausea R11.0 [facility] [id number] [place] [address] 54210- 8654 Feb, Other dorsalgia M54.89 [facility] [id number] [place] [address] 86313- 5964 Jan, [facility] [id number] [place] [address] 44742- 4146 Jan, [facility] [id number] [place] [address] 58431- 3494 Jan, [facility] [id number] [place] [address] 39343- 7989 Jan, [facility] [id number] [place] [address] 83528- 6921 08 Sep, 2017 Asthma exacerbation J45.901 ; Bronchitis J40 and Neuropathy G62.9 [facility] [id number] [place] [address] 88124- 9185 06 Jan, 2017 Anorexia R63.0 [facility] [id number] [place] [address] 88606- 6606 Jan, Other dorsalgia M54.89 [facility] [id number] [place] [address] 08025- 2991 Dec, [facility] [id number] [place] [address] 46712- 3590 Dec, [facility] [id number] [place] [address] 57720- 8468 Dec, Anorexia R63.0 [facility] [id number] [place] [address] 26445- 8797 Dec, Primary insomnia F51.01 [facility] [id number] [place] [address] 14927- 2988 Dec, Other dorsalgia M54.89 [facility] [id number] [place] [address] 60966- 7684 Dec, [facility] [id number] [place] [address] 71069- 5201 Nov, [facility] [id number] [place] [address] 42711- 8583 Nov, [facility] [id number] [place] [address] 39350- 2173 Nov, [facility] [id number] [place] [address] 36252- 2086 Nov, History of colon polyps Z86.010 [facility] [id number] [place] [address] 60193- 6487 Nov, Weight loss R63.4 ; Nausea and vomiting, intractability of vomiting not specified, unspecified vomiting type R11.2 and Abnormal LFTs R79.89 [facility] [id number] [place] [address] 35949- 0663 18 Nov, 2016 [facility] [id number] [place] [address] 59486- 5486 Nov, Neuropathy G62.9 and Pain in right knee M25.561 [facility] [id number] [place] [address] 24742- 6996 12 Nov, 2016 Back pain M54.9 [facility] [id number] [place] [address] 83668- 0125 10 Nov, 2016 [facility] [id number] [place] [address] 25851- 9430 Nov, Bronchitis J40 [facility] [id number] [place] [address] 42895- 1369 Nov, Weight loss R63.4 [facility] [id number] [place] [address] 11539- 7313 Oct, Back pain M54.9 [facility] [id number] [place] [address] 68355- 7927 16 Oct, 2016 [facility] [id number] [place] [address] 48488- 3897 Oct, Back pain M54.9 [facility] [address] [place] [address] 69702- 8863 Oct, Type 2 diabetes mellitus without complications E11.9 and Bronchitis J40 [facility] [address] [place] [address] 47431 2549 05 Oct, 2016 [facility] [id number] [place] [address] 29506 2546 Oct, [facility] [address] [place] [address] 27105- 3596 September, Gastroparesis K31.84 ; Type 2 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 and Neuropathy G62.9 [facility] [id number] [place] [address] 56956- 0659 September, Other dorsalgia M54.89 [facility] [id number] [place] [address] 53460- 5827 September, [facility] [id number] [place] [address] 16069- 3980 September, [facility] [address] 96516- 0952 Aug, Gastroparesis K31.84 and Radicular leg pain M54.10 [facility] [address] 48995- 4257 Aug, Anorexia R63.0 [facility] [address] 47855- 7626 Aug, Bronchitis J40 [facility] [address] 62317- 6714 Aug, Back pain M54.9 [facility] [id number] [place] [address] 70029- 9256 Aug, Routine gynecological examination Z01.419 ; Routine screening for STI (sexually transmitted infection) Z11.3 and Yeast infection of the vagina B37.3 [facility] [id number] [place] [address] 48032- 7473 Jul, Other dorsalgia M54.89 [facility] [id number] [place] [address] 08038- 0824 Jul, Diabetes E11.9 and Gastroparesis K31.84 [facility] [id number] [place] [address] 60069- 5225 Jun, [facility] [id number] [place] [address] 55511- 1058 Jun, Back pain M54.9 [facility] [id number] [place] [address] 49879- 2429 14 Jun, 2016 Neuropathy G62.9 [facility] [address] [place] [address] [id number] 02 Jun, 2016 Encounter for dental examination Z01.20 [facility] [id number] [place] [address] 47279- 2548 01 Jun, 2016 Gastroparesis 536.3 and Anorexia R63.0 [facility] [address] 12667 2544 May, Other dorsalgia M54.89 [facility] [address] 988016- 2646 10 May, 2016 Periumbilical abdominal pain R10.33 ; Weight loss R63.4 and Gastroparesis K31.84 [facility] [id number] [place] [address] 95387- 3879 May, Back pain M54.9 [facility] [id number] [place] [address] 95314 2546 Apr, Anorexia R63.0 [facility] [address] 77413 2546 Apr, Anorexia R63.0 [facility] [id number] [place] [address] 58059 2548 Apr, Back pain M54.9 [facility] [id number] [place] [address] 85713 2546 Apr, Back pain M54.9 [facility] [id number] [place] [address] 42254 2546 Apr, [facility] [address] 47705 2546 Apr, Bronchitis J40 and Neuropathy G62.9 [facility] [id number] [place] [address] 87747 2546 Apr, Neuropathy G62.9 [facility] [id number] [place] [address] 27085- 2360 Apr, [facility] [address] 22179- 3439 Apr, Back pain M54.9 [facility] [address] 29175- 1008 Mar, Type 2 diabetes mellitus with diabetic autonomic (poly) 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 [facility] [address] 77479- 6983 Mar, Type 2 diabetes mellitus without complications E11.9 [place] [address] 86160- 3898 Mar, Neuropathy G62.9 [place] [address] 51781- 6631 Mar, [place] [address] 88078- 1031 Mar, Breast cancer screening Z12.39 [place] [address] 61718- 6594 Mar, Other dorsalgia M54.89 [facility] [address] 50152- 4139 Feb, [place] [address] 75274- 1303 Jan, Neuropathy G62.9 ; Type 2 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 ; Uncomplicated asthma, unspecified asthma severity J45.909 and Encounter for immunization Z23 [place] [address] 28204- 6376 Jan, [facility] [address] 30754- 4482 Jan, [place] [address] 30317- 2621 Dec, [facility] [id number] [place] [address] 06443- 6578 Dec, [facility] [id number] [place] [address] 26221- 6374 Nov, [facility] [id number] [place] [address] 30336- 2957 Nov, Back pain M54.9 [facility] [id number] [place] [address] 63454- 4968 Nov, Neuropathy G62.9 ; Mixed hyperlipidemia E78.2 ; Type 2 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 and 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 [facility] [id number] [place] [address] [id number]- [id number] Oct, [facility] [id number] [place] [address] [phone]- 2247 Oct, Other dorsalgia M54.89 [facility] [id number] [place] [address] [phone]- 3888 September, Primary insomnia F51.01 [facility] [id number] [place] [address] 27832- 5875 September, [facility] [id number] [place] [address] 58575- 4967 Aug, Other dorsalgia M54.89 [facility] [id number] [place] [address] [phone]- 9426 Jul, [facility] [id number] [place] [address] [id number]- 3493 Jul, Other dorsalgia M54.89 [facility] [id number] [place] [address] 27760- 4727 Jul, Diabetes E11.9 ; Back pain M54.9 ; Neuropathy G62.9 and Gastroparesis K31.84 [facility] [id number] [place] [address] 16492- 3971 Jun, [facility] [id number] [place] [address] [phone]- 4682 Jun, Other dorsalgia M54.89 [facility] [id number] [place] [address] [id number] May, [facility] [id number] [place] [address] 81161- 6365 May, Radicular leg pain M54.10 and Other dorsalgia M54.89 [facility] [id number] [place] [address] 30213- 8003 Apr, [facility] [id number] [place] [address] 26190- 1202 Mar, [facility] [id number] [place] [address] [id number]- 7477 Mar, [facility] [id number] [place] [address] 82839- 5262 Mar, Radicular leg pain M54.10 [facility] [id number] [place] [address] 25955- 9971 Feb, [facility] [id number] [place] [address] 51001- 9643 Feb, [facility] [id number] [place] [address] 12876- 9518 Feb, [facility] [id number] [place] [address] 19514- 2540 Jan, [facility] [id number] [place] [address] 20723- 2134 22 Jan, 2015 IBS (irritable bowel syndrome) 564.1 [facility] [id number] [place] [address] 98046- 0875 Jan, [facility] [id number] [place] [address] 97788- 9514 Jan, [facility] [id number] [place] [address] 067380- 5782 Jan, Diabetes mellitus without mention of complication, type II or unspecified type, not stated as uncontrolled 250.00 ; Gastroparesis 536.3 and Hypoacusis 389.9 [facility] [id number] [place] [address] 72816- 8062 Jan, [facility] [id number] [place] [address] 429086- 6213 Jan, [facility] [id number] [place] [address] 55351- 1759 Dec, [facility] [id number] [place] [address] 52816- 4119 Dec, [facility] [id number] [place] [address] 74835- 6470 Dec, [facility] [id number] [place] [address] 51234- 5768 Dec, Back pain 724.5 and Gastroparesis 536.3 [facility] [id number] [place] [address] 50345- 7051 Nov, [facility] [id number] [place] [address] [id number] Nov, Dental examination V72.2 [facility] [id number] [place] [address] 59784- 8834 Nov, [facility] [id number] [place] [address] 31782- 9872 Nov, [facility] [id number] [place] [address] 63676- 0213 Nov, Depressive disorder, not elsewhere classified 311 and No condition on [place] II V71.09 [facility] [id number] [place] [address] 41016- 8105 Nov, Diabetes 250.00 and Symptomatic menopausal or female climacteric states 627.2 [facility] [address] [address] 6629 Oct, [facility] [address] [address] 3207 Oct, Lumbar strain 847.2 [facility] [id number] [address]- 9781 Oct, Gastroparesis 536.3 and Unspecified myalgia and myositis 729.1 [facility] [address] [address]- 9730 Aug, [facility] [id number] [place] [address] 42264- 0247 Aug, [facility] [address] [address]- 5910 Jul, [facility] [address] [address]- 8491 Jul, [facility] [address] [address]- 8951 Jul, [facility] [address] [address]- 5848 Jul, [facility] [address] [address]- 7393 Jul, [facility] [address] [address]- 4319 Jun, [facility] [address] 4517 Jun, [facility] [address] 3794 Jun, [facility] [address] [address]- 9868 May, [facility] [place] [facility] [address] [facility] [id number] [place] [address]- 9907 May, [facility] [place] [facility] [address] [id number] [place] [address]- 0032 Mar, [facility] [place] [facility] [address] [id number] [place] [address]- 7510 Mar, [facility] [place] [facility] [address] [id number] [place] [address]- 7225 Mar, [facility] [place] [facility] [address] [id number] [place] [address]- 2411 Mar, [facility] [place] [facility] [address] [id number] [place] [address]- 3374 Mar, [facility] [place] [facility] [address] [id number] [place] [address]- 7958 Mar, [facility] [place] [facility] [address] [id number] [place] [address]- 8288 Feb, [facility] [place] [facility] [address] [id number] [place] [address]- 4362 Feb, [facility] [place] [facility] [address] [id number] [place] [address]- 0775 Nov, [facility] [place] [facility] [address] [id number] [place] [address]- 2853 Nov, [facility] [place] [facility] [address] [id number] [place] [address]- 7170 Nov, [facility] [place] [facility] [address] [id number] [place] [address]- 3532 Oct, [facility] [place] [facility] [address] [id number] [place] [address]- 3331 September, [facility] [place] [facility] [address] [id number] [place] [address]- 2066 Aug, [facility] [place] [facility] [address] [id number] [place] [address]- 0645 Aug, [facility] [address] [id number] [place] [address]- 1924 Aug, [facility] [place] [facility] [address] [id number] [place] [address]- 2852 Aug, [facility] [place] [facility] [address] [id number] [place] [address]- 5605 Aug, [facility] [place] [facility] [address] [id number] [place] [address]- 9279 Aug, [facility] [place] [facility] [address] [id number] [place] [address]- 9603 Aug, [facility] [place] [facility] [address] [id number] [place] [address]- 0451 Aug, [facility] [place] [facility] [id number] [place] [address]- 2570 Jul, [facility] [place] [facility] [address] [id number], [place] [address]- 7287 Jul, [facility] [place] [facility] [address] [id number] [place] [address]- 9914 Jun, [facility] [place] [facility] [address] [id number], [place] [address]- 9403 Jun, [facility] [place] [facility] [address] [id number], [place] [address]- 6981 Jun, [facility] [place] [facility] [address] [id number], [place] [address]- 5381 Jun, [facility] [place] [facility] [address] [id number] [place] [address]- 9747 Jun, [facility] [place] [facility] [address] [id number], [place] [address]- 7082 Jun, [facility] [place] [facility] [address] [facility] [id number] [address]- 4528 04 Jun, 2012 [facility] [place] [facility] [address] [facility] [id number] [place] [address]- 0053 31 May, 2012 [facility] [address] [facility] [id number] [address]- 3690 May, [facility] [id number] [address]- 8580 May, [facility] [address] [facility] [id number], [place] [address]- 4176 May, [facility] [address] [facility] [id number], [place] [address]- 2694 Mar, [facility] [address] [facility] [id number], [place] [address]- 7736 Mar, [facility] [address] [facility] [id number], [place] [address]- 5355 Jan, IMMUNIZATIONS No Known Immunizations SOCIAL HISTORY Never Assessed REASON FOR VISIT 6 mo DM ed f/u PLAN OF CARE VITAL SIGNS MEDICATIONS Unknown [...] High blood sugar 2016 Hospitalization History DKA, vomitting-[facility] 03/05/17 Hospitalization History hospital stay at [facility] for stomach issues 2016
--- OUTSIDE RECORDS SUMMARY | 2018-01-27 19:48 | XMS REPORT ---
Author Author DELFIN RACH Organization [facility] Address [address] [place] [address] Care Team Providers Care Space Scheduler Name Role Phone EDWINBERNADETTE CROSSA Unavailable PROBLEMS Type Condition ICD9-CM Code IZA04-OR Code Onset Dates Condition Status SNOMED Code Problem Primary insomnia F51.01 Active 6108077 Problem Reactive depression F32.9 Active 65387662 Problem Asthma exacerbation J45.901 Active 725661925 Problem Irritable bowel syndrome with constipation K58.1 Active 876331901 Problem Back pain M54.9 Active 427988374 Problem Tobacco dependency F17.200 Active 49046011 Problem Low TSH level R94.6 Active 262713102 Problem PTSD (post-traumatic stress disorder) F43.10 Active 09520767 Problem Diabetic polyneuropathy associated with type 2 diabetes mellitus E11.42 Active 22837253 Problem Annual physical exam Z00.00 Active 924414591 Problem Migraine without aura and without status migrainosus, not intractable G43.009 Active 798431416 Problem Gastroparesis K31.84 Active 301482944 Problem USP 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 Z79.4 Active 998606059 Problem Neuropathy G62.9 Active 456086690 Problem Diabetes E11.9 Active 86656364 Problem Uncomplicated asthma, unspecified asthma severity J45.909 Active 406612941 Problem Anorexia R63.0 Active 70087669 Problem Mixed hyperlipidemia E78.2 Active 321595948 Problem Weight loss R63.4 Active 262223792 Problem Type 2 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 Active 60808486 Problem History of colon polyps Z86.010 Active 482569819 ALLERGIES Substance Reaction Event Type Date Status Coumadin vomitied blood Drug Allergy Oct, Active Toradol swells, itch from inside out Drug Allergy Oct, Active Nsaids (non-steroidal Anti-inflammatory Drug) triggers asthma, can't breathe, swells form inside out. Non Drug Allergy Oct, Active ENCOUNTERS Encounter Location Date Diagnosis [facility] [id number] [place] [address] 97090- 5952 Jan, [facility] [address] 08068- 6467 17 Jan, 2018 [facility] [address] 55208- 8986 Jan, [facility] [address] 18400- 3243 Dec, Right upper quadrant abdominal pain R10.11 [place] [address] 23102- 0906 Dec, PTSD (post-traumatic stress disorder) F43.10 [place] [address] 45868- 0835 Dec, LLQ pain R10.32 [place] [address] 78790- 9335 Dec, Other dorsalgia M54.89 [place] [address] 28902- 3124 Dec, Neuropathy G62.9 [place] [address] 15429- 9111 Dec, [facility] [address] 45050- 1973 Nov, Irritable bowel syndrome with constipation K58.1 ; Uncomplicated asthma, unspecified asthma severity J45.909 and Type 2 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 [facility] [address] [id number] Nov, Dental examination Z01.20 [facility] [address] 43910- 5581 Nov, Other dorsalgia M54.89 [place] [address] 20911- 4802 Nov, LLQ pain R10.32 ; Low TSH level R94.6 and Gastroparesis K31.84 [place] [address] 74123- 6198 09 Nov, 2017 Anorexia R63.0 [place] [address] 01952- 1656 Nov, Asthma exacerbation J45.901 [place] [address] 80105- 7904 Oct, PTSD (post-traumatic stress disorder) F43.10 [place] [address] 95099- 5646 Oct, [place] [address] 34840- 2411 Oct, PTSD (post-traumatic stress disorder) F43.10 and Tobacco dependency F17.200 [place] [address] 33883- 4423 Oct, [place] [address] 17838- 3145 Oct, Other dorsalgia M54.89 [place] [address] 39181- 0186 Oct, Anorexia R63.0 [place] [address] 83630- 3912 September, PTSD (post-traumatic stress disorder) F43.10 [place] [address] 09593- 5746 September, Low TSH level R94.6 [place] [address] 98936- 8724 September, Other dorsalgia M54.89 [place] [address] 83966- 5295 September, Annual physical exam Z00.00 and Migraine without aura and without status migrainosus, not intractable G43.009 [place] [address] [id number]- 3130 September, Abnormal TSH R94.6 and Dysfunction of left eustachian tube H69.82 [place] [address] 60193- 708 Aug, [place] [address] 776352 1999 Aug, Anorexia R63.0 [facility] [address] [id number] Aug, Dental examination Z01.20 and Xerostomia K11.7 [place] [address] 18136- 9596 Aug, Neuropathy G62.9 [place] [address] 55102- 7969 Aug, [place] [address] 29539- 0239 Aug, Other dorsalgia M54.89 [place] [address] 02867- 2258 Aug, Type 2 diabetes mellitus with diabetic autonomic (poly) 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 ; Diabetic polyneuropathy associated with type 2 diabetes mellitus E11.42 ; Bronchitis J40 ; Gastroparesis K31.84 and Reactive depression F32.9 [place] [address] 55601- 9817 Aug, PTSD (post-traumatic stress disorder) F43.10 [place] [address] 55282- 7928 Aug, Other dorsalgia M54.89 and Anorexia R63.0 [place] [address] 50324- 0156 Jul, [facility] [address] [place] [address] 67843- 4134 Jul, Other dorsalgia M54.89 [facility] [id number] [place] [address] 18775- 8466 Jul, [facility] [id number] [place] [address] 57153- 1006 Jul, [facility] [id number] [place] [address] 04585- 3124 Jul, PTSD (post-traumatic stress disorder) F43.10 [facility] [id number] [place] [address] 60127- 8518 Jul, [facility] [id number] [place] [address] 69488- 1083 Jul, [facility] [id number] [place] [address] 66845- 2387 Jul, [facility] [id number] [place] [address] 05584- 1763 Jul, Anorexia R63.0 [facility] [id number] [place] [address] 62232- 1779 Jun, [facility] [id number] [place] [address] 90602- 6041 Jun, Vaginal discharge N89.8 ; Visit for gynecologic examination Z01.419 and Pelvic pressure in female R10.2 [facility] [address] [place] [address] 00734- 4046 Jun, [facility] [id number] [place] [address] 21635- 7796 Jun, Other dorsalgia M54.89 [facility] [id number] [place] [address] 07308- 9266 16 Jun, 2017 [facility] [id number] [place] [address] 00964- 2441 Jun, [facility] [id number] [place] [address] 20957- 7068 Jun, [facility] [id number] [place] [address]- 8627 May, Back pain M54.9 [facility] [address] 16798- 4579 May, Anorexia R63.0 [facility] [address] 23368- 1642 May, Other dorsalgia M54.89 [facility] [address] 26595- 9499 May, [facility] [address] 25997- 7632 May, Bronchitis J40 [facility] [address] 42683- 4025 May, Type 2 diabetes mellitus with diabetic autonomic (poly) 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 ; rn long term care 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 Z79.4 ; Back pain M54.9 and Neuropathy G62.9 [facility] [id number] [place] [address] 71359- 6256 May, Left breast mass N63.20 [facility] [id number] [place] [address] 96622- 0659 May, [facility] [id number] [place] [address] 16357- 6631 Apr, Other dorsalgia M54.89 [facility] [address] 02891- 5763 Apr, Anorexia R63.0 [facility] [id number] [place] [address] 68931- 3597 Apr, Anorexia R63.0 [facility] [address] 39496- 3046 Apr, Mass of left breast N63.20 [facility] [address] [place] [address] 17226- 0861 Apr, [facility] [id number] [place] [address] 81364- 6572 Apr, [facility] [id number] [place] [address] 42564- 3700 14 Apr, 2017 Diarrhea of presumed infectious origin A09 [facility] [id number] [place] [address] 50301- 0871 Apr, Encounter for immunization Z23 [facility] [id number] [place] [address] 66304- 4115 Apr, [facility] [id number] [place] [address] 67818- 9211 Mar, Other dorsalgia M54.89 [facility] [id number] [place] [address] 67566- 9257 Mar, [facility] [id number] [place] [address] 32787- 7584 Mar, [facility] [id number] [place] [address] 86817- 5497 Mar, Anorexia R63.0 [facility] [id number] [place] [address] 66000- 5053 Mar, [facility] [id number] [place] [address] 72281- 2419 Mar, Other dorsalgia M54.89 [facility] [id number] [place] [address] 43740- 3547 Mar, [facility] [id number] [place] [address] 95929- 6540 Mar, Encounter for immunization Z23 [facility] [id number] [place] [address] 96676- 1971 Feb, Anorexia R63.0 [facility] [id number] [place] [address] 46375- 3811 Feb, Diabetes E11.9 [facility] [id number] [place] [address] 65709- 1224 Feb, Back pain M54.9 and Diabetes E11.9 [facility] [address] 82987- 0357 Feb, Diabetes E11.9 [facility] [address] 32965- 7533 Feb, Neuropathy G62.9 [facility] [address] 41773- 0400 Feb, Encounter for immunization Z23 ; Epigastric pain R10.13 ; Weight loss, abnormal R63.4 and Neuropathy G62.9 [facility] [address] [id number] Feb, [facility] [address] 99153- 8276 Feb, [facility] [address] 44785- 9867 Feb, Intractable vomiting with nausea, unspecified vomiting type R11.2 [facility] [id number] [place] [address] 48531 -3972 Feb, Chronic nausea R11.0 [facility] [id number] [place] [address] 99211- 5854 Feb, Other dorsalgia M54.89 [facility] [address] 56029- 8523 Jan, [facility] [address] 79460- 3176 Jan, [facility] [address] 82848- 6398 Jan, [facility] [id number] [place] [address] 29130 2546 Jan, [facility] [id number] [place] [address] 69791- 2546 Jan, Asthma exacerbation J45.901 ; Bronchitis J40 and Neuropathy G62.9 [facility] [id number] [place] [address] 64514- 2546 Jan, Anorexia R63.0 [facility] [id number] [place] [address] 54856- 2546 Jan, Other dorsalgia M54.89 [facility] [id number] [place] [address] 00361 2546 Dec, [facility] [id number] [place] [address] 03829 2546 Dec, [facility] [id number] [place] [address] 52230 2546 Dec, Anorexia R63.0 [facility] [id number] [place] [address] 01447 2546 Dec, Primary insomnia F51.01 [facility] [id number] [place] [address] 30081 2546 Dec, Other dorsalgia M54.89 [facility] [id number] [place] [address] 06492 2546 Dec, [facility] [address] [place] [address] 91680 2546 Nov, [facility] [id number] [place] [address] 60077 2546 Nov, [facility] [id number] [place] [address] 39993 2546 Nov, [facility] [address] [place] [address] 75895 2546 Nov, History of colon polyps Z86.010 [facility] [address] [place] [address] 30785- 1912 Nov, Weight loss R63.4 ; Nausea and vomiting, intractability of vomiting not specified, unspecified vomiting type R11.2 and Abnormal LFTs R79.89 [facility] [id number] [place] [address] 88576- 3482 18 Nov, 2016 [facility] [id number] [place] [address] 47194- 3855 Nov, Neuropathy G62.9 and Pain in right knee M25.561 [place] [address] 37701- 3426 Nov, Back pain M54.9 [facility] [id number] [place] [address] 01057- 9345 10 Nov, 2016 [facility] [address] 86574- 8736 Nov, Bronchitis J40 [facility] [id number] [place] [address] 16735- 5072 03 Nov, 2016 Weight loss R63.4 [facility] [id number] [place] [address] 01681- 8646 16 Oct, 2016 Back pain M54.9 [facility] [id number] [place] [address] 31279- 6129 16 Oct, 2016 [facility] [id number] [place] [address] 19443- 1932 14 Oct, 2016 Back pain M54.9 [facility] [id number] [place] [address] 52945- 2170 13 Oct, 2016 Type 2 diabetes mellitus without complications E11.9 and Bronchitis J40 [facility] [id number] [place] [address] 13869- 1717 05 Oct, 2016 [facility] [id number] [place] [address] 11469- 1863 Oct, [facility] [id number] [place] [address] 63885- 0046 September, Gastroparesis K31.84 ; Type 2 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 and Neuropathy G62.9 [facility] [id number] [place] [address] 18132- 4670 September, Other dorsalgia M54.89 [facility] [address] 45070- 3937 September, [place] [address] 32732- 1528 September, [place] [address] 67830- 0348 Aug, Gastroparesis K31.84 and Radicular leg pain M54.10 [place] [address] 03630- 8713 Aug, Anorexia R63.0 [place] [id number] [place] [address] 49030- 4058 Aug, Bronchitis J40 [place] [id number] [place] [address] 46195- 2457 Aug, Back pain M54.9 [place] [id number] [place] [address] 80387- 9683 Aug, Routine gynecological examination Z01.419 ; Routine screening for STI (sexually transmitted infection) Z11.3 and Yeast infection of the vagina B37.3 [place] [id number] [place] [address] 26536- 9019 Jul, Other dorsalgia M54.89 [facility] [id number] [place] [address] 56458- 8174 Jul, Diabetes E11.9 and Gastroparesis K31.84 [facility] [id number] [place] [address] 64115- 2999 Jun, [facility] [address] [place] [address] 53759- 0924 24 Jun, 2016 Back pain M54.9 [facility] [id number] [place] [address] 58217- 0586 14 Jun, 2016 Neuropathy G62.9 [facility] [id number] [place] [address] [id number] 02 Jun, 2016 Encounter for dental examination Z01.20 [facility] [id number] [place] [address] 15173- 2858 01 Jun, 2016 Gastroparesis 536.3 and Anorexia R63.0 [facility] [id number] [place] [address] 21333- 0175 May, Other dorsalgia M54.89 [facility] [address] 84519- 3357 May, Periumbilical abdominal pain R10.33 ; Weight loss R63.4 and Gastroparesis K31.84 [facility] [id number] [place] [address] 44771- 3038 May, Back pain M54.9 [facility] [id number] [place] [address] 71234- 0855 Apr, Anorexia R63.0 [facility] [id number] [place] [address] 51509- 0240 Apr, Anorexia R63.0 [facility] [id number] [place] [address] 65114- 9354 Apr, Back pain M54.9 [facility] [id number] [place] [address] 92270- 5703 15 Apr, 2016 Back pain M54.9 [facility] [id number] [place] [address] 83554- 2476 Apr, [facility] [address] 80105- 4128 Apr, Bronchitis J40 and Neuropathy G62.9 [place] [address] 24732- 1220 Apr, Neuropathy G62.9 [place] [address] 38987- 6686 Apr, [place] [address] 83860- 5942 Apr, Back pain M54.9 [place] [address] 15804- 7586 Mar, Type 2 diabetes mellitus with diabetic autonomic (poly) 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 [place] [address] 96543- 9062 Mar, Type 2 diabetes mellitus without complications E11.9 [place] [address] 40908- 2898 Mar, Neuropathy G62.9 [place] [address] 62438- 7711 Mar, [place] [address] 47945- 5985 Mar, Breast cancer screening Z12.39 [place] [address] 30554- 5124 Mar, Other dorsalgia M54.89 [place] [address] 35744- 2989 Feb, [place] [address] 22154- 1106 Jan, Neuropathy G62.9 ; Type 2 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 ; Uncomplicated asthma, unspecified asthma severity J45.909 and Encounter for immunization Z23 [place] [address] 79696- 0007 Jan, [facility] [address] [place] [address] 69978- 0495 Jan, [facility] [id number] [place] [address] 94710- 5637 Dec, [facility] [id number] [place] [address] 13310- 7527 Dec, [facility] [id number] [place] [address] 85372- 8010 Nov, [facility] [id number] [place] [address] 74906- 2238 Nov, Back pain M54.9 [facility] [id number] [place] [address] 96882- 1905 Nov, Neuropathy G62.9 ; Mixed hyperlipidemia E78.2 ; Type 2 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 and USP 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 Z79.4 [facility] [id number] [place] [address] 92891- 6745 Oct, [facility] [id number] [place] [address] 86042- 9090 Oct, Other dorsalgia M54.89 [facility] [id number] [place] [address] 50892- 5664 September, Primary insomnia F51.01 [facility] [id number] [place] [address] 78743- 4141 September, [facility] [id number] [place] [address] 68552- 5481 Aug, Other dorsalgia M54.89 [facility] [id number] [place] [address] 68651- 1191 Jul, [facility] [id number] [place] [address] 34747- 8260 Jul, Other dorsalgia M54.89 [facility] [id number] [place] [address] 14198- 0962 Jul, Diabetes E11.9 ; Back pain M54.9 ; Neuropathy G62.9 and Gastroparesis K31.84 [facility] [id number] [place] [address] 12353- 4603 Jun, [facility] [address] 50476- 9482 Jun, Other dorsalgia M54.89 [facility] [id number] [place] [address] 40794- 8717 May, [facility] [address] 20887- 6515 May, Radicular leg pain M54.10 and Other dorsalgia M54.89 [facility] [id number] [place] [address] 20511- 0520 Apr, [facility] [id number] [place] [address] 42502- 4268 Mar, [facility] [id number] [place] [address] 92586- 3635 Mar, [facility] [id number] [place] [address] 89156- 4031 Mar, Radicular leg pain M54.10 [facility] [id number] [place] [address] 13038- 6048 Feb, [facility] [id number] [place] [address] [phone] Feb, [facility] [id number] [place] [address] [phone] Feb, [facility] [id number] [place] [address] [phone] Jan, [facility] [id number] [place] [address] [phone] Jan, IBS (irritable bowel syndrome) 564.1 [facility] [id number] [place] [address] [phone] Jan, [facility] [id number] [place] [address] [phone] Jan, [facility] [id number] [place] [address] [phone] Jan, Diabetes mellitus without mention of complication, type II or unspecified type, not stated as uncontrolled 250.00 ; Gastroparesis 536.3 and Hypoacusis 389.9 [facility] [id number] [place] [address] [phone] Jan, [facility] [id number] [place] [address] [phone] Jan, [facility] [id number] [place] [address] [phone] Dec, [facility] [id number] [place] [address] [phone] Dec, [facility] [id number] [place] [address] [phone] Dec, [facility] [id number] [place] [address] [phone] Dec, Back pain 724.5 and Gastroparesis 536.3 [facility] [id number] [place] [address] [phone] Nov, [facility] [id number] [place] [address] [id number] Nov, Dental examination V72.2 [facility] [facility] [id number] [place] [address] [id number]- 8691 Nov, [facility] [id number] [place] [address] 07819- 5395 Nov, [facility] [address] [place] [address] Nov, Depressive disorder, not elsewhere classified 311 and No condition on [place] II V71.09 [facility] [id number] [place] [address] 28893- 2452 Nov, Diabetes 250.00 and Symptomatic menopausal or female climacteric states 627.2 [facility] [id number] [place] [address] 85063- 8518 Oct, [facility] [id number] [place] [address] 94571- 9013 Oct, Lumbar strain 847.2 [facility] [id number] [place] [address] [phone]- 8804 Oct, Gastroparesis 536.3 and Unspecified myalgia and myositis 729.1 [facility] [id number] [place] [address] 64318- 1110 Aug, [facility] [id number] [place] [address] [id number]- 1916 Aug, [facility] [id number] [place] [address] 80395- 3545 Jul, [facility] [id number] [address] Jul, [facility] [id number] [address] Jul, [facility] [id number] [address] Jul, [facility] [id number] [place] [address] [id number]- 0519 Jul, [facility] [id number] [address] 18 Jun, 2014 [facility] [id number] Jun, [facility] [place] [facility] [address] [id number] [place] [address] 6920 Jun, [facility] [place] [facility] [address] [id number] [place] [address]- 3425 May, [facility] [place] [facility] [address] [id number] [place] [address]- 1678 May, [facility] [place] [facility] [address] [id number] [place] [address]- 0267 Mar, [facility] [place] [facility] [address] [id number] [place] [address]- 9672 Mar, [facility] [place] [facility] [address] [id number] [place] [address]- 6001 Mar, [facility] [place] [facility] [address] [id number] [place] [address]- 2826 Mar, [facility] [place] [facility] [address] [id number] [place] [address]- 5601 Mar, [facility] [place] [facility] [address] [id number] [place] [address]- 2047 Mar, [facility] [place] [facility] [address] [id number] [place] [address]- 4584 Feb, [facility] [place] [facility] [address] [id number] [place] [address]- 8313 Feb, [facility] [place] [facility] [address] [id number] [place] [address]- 5020 Nov, [facility] [place] [facility] [address] [id number] [place] [address]- 0133 Nov, [facility] [place] [facility] [address] [id number] [place] [address]- 4046 Nov, [facility] [place] [facility] [address] [id number] [place] [address]- 5628 Oct, [facility] [place] [facility] [address] [id number] [place] [address]- 7313 September, [facility] [address] [id number] [place] [address]- 0114 Aug, [facility] [address] [id number] [place] [address]- 5800 Aug, [facility] [address] [id number] [place] [address]- 9427 Aug, [facility] [address] [id number] [place] [address]- 6791 Aug, [facility] [address] [id number] [place] [address]- 9249 Aug, [facility] [address] [id number] [place] [address]- 4491 Aug, [facility] [address] [id number] [place] [address]- 9854 Aug, [facility] [address] [id number] [place] [address]- 5235 Aug, [facility] [address] [id number] [place] [address]- 6549 Jul, [facility] [address] [id number] [place] [address]- 3372 Jul, [facility] [address] [id number] [place] [address]- 7874 Jun, [facility] [place] [facility] [address] [id number] [place] [address]- 5185 Jun, [facility] [place] [facility] [address] [id number] [place] [address]- 3324 Jun, [facility] [place] [facility] [address] [id number] [place] [address]- 0317 Jun, [facility] [place] [facility] [address] [id number] [place] [address]- 0988 Jun, [facility] [place] [facility] [id number] [address]- [address]26 Jun, [facility] [id number] [address]- 8349 Jun, [facility] [id number] [address]- 4864 May, [facility] [id number] [address]- [address]161 May, [facility] [id number] [address]- [address]40 May, [facility] [id number] May, [facility] [id number] [address]- 5891 Mar, [facility] [id number] [address]- 6607 Mar, [facility] [id number] [address]- [address] Jan, IMMUNIZATIONS No Known Immunizations SOCIAL HISTORY Never Assessed REASON FOR VISIT yenny/dolly Quiroz MA PLAN OF CARE Activity Details Follow Up 3 Months, prn Reason: VITAL SIGNS Height 62 in 2017-11-11 Weight 107.3 lbs 2017-11-11 Heart Rate 98 bpm 2017-11-11 Respiratory Rate 20 2017-11-11 BMI 19.62 kg/m2 2017-11-11 Blood pressure systolic 118 mmHg 2017-11-11 Blood pressure diastolic 68 mmHg 2017-11-11 MEDICATIONS Medication Instructions Dosage Frequency Start Date End Date Duration Status Cyclobenzaprine HCl 10 TAKE 1 TABLET BY MOUTH THREE TIMES DAILY 30 Active Wellbutrin SR 100 MG Orally Once a day 1 tablet in the morning 24h Oct, 30 day(s) Active Humalog KwikPen 100 INJECT 5 UNITS SUB-Q THREE TIMES DAILY BOFORE MEALS Active Marinol 5 mg Orally Twice a day 1 capsule before lunch and supper 12h 28 days Active Nicotine 14 MG/24HR Transdermal Once a day for 6 weeks 1 patch to skin Oct, Nov, 42 days Active Calcium 600-200 MG-UNIT Active Zofran ODT 8 MG DISSOLVE ONE TABLET ON THE TONGUE EVERY 6 HOURS 5 Active Xarelto 20 mg 1 Tablet by Oral route 1 time per day Jul, Active Vitamin D-3 1000 UNIT Orally Once a day 2 capsule 24h Active Promethazine HCl 25 MG Orally every 6 hours 1 tablet 6h 30 Active Lantus SoloStar 100 8 units 12h Active Atorvastatin Calcium 40 MG TAKE ONE TABLET BY MOUTH ONCE DAILY (LAST REFILL MUST HAVE LABS) 30 Active Quad Cane - as directed 24h Apr, Active SudoGest 60 mg Orally every 6 hrs 1 tablet as needed 6h September, 07 days Active Ondansetron 8 MG DISSOLVE ONE (1) TABLET ON THE TONGUE EVERY SIX (6) HOURS 5 Active Maxalt 5 mg Orally daily as needed Take 1 tablet when headache begins; repeat in 2 hours if not better. Not to take more than 30 mg daily September, 30 days Active Cymbalta 30 MG Orally Once a day (take with 60mg cap) 1 capsule September, 30 days Active Lyrica 150 MG Orally Twice a day 1 capsule 12h 30 days Active Multiple Vitamins-Iron - Orally Once a day 1 tablet 24h Active Oxycodone-Acetaminophen 10-325 MG Orally 4 times a day 1 tablet as needed 6h Oct, 28 days Active Ayden Contour Next Test - subcutaneously 3 times a day test blood sugar 8h Active Doxepin HCl 10 MG Orally Once a day 1 capsule at bedtime 24h September, 30 days Active Duloxetine HCl 60 MG Orally Once a day 1 capsule 24h 30 days Active Nicotine 7 MG/24HR Transdermal Once a day 1 patch to skin 24h Oct, Nov, 14 days Active Comfort Lancets - as directed 8h Mar, Active Omeprazole 40 mg 1 CAP(S) ONCE A DAY ORALLY 30 DAYS 30 Active Tizanidine HCl 4 MG Orally 2 times a day 1 tablet 12h 30 Active MiraLax - Orally Once a day as needed 1 packet mixed with 8 ounces of fluid Active Neurontin 600 MG Orally Three times a day 1 capsule 8h Active ProAir HFA 108 INHALE 2 PUFFS BY MOUTH FOUR TIMES DAILY NEEDED 25 Active Cyanocobalamin 1000 MCG Orally Once a day 1 tablet 24h Active Microlet Lancets 0 USE DIRECTED THREE TIMES DAILY 30 Active RESULTS No Results PROCEDURES No Known [...] vomitting-[facility] 03/05/17 Hospitalization History hospital stay at [facility] for stomach issues 2016
--- OUTSIDE RECORDS SUMMARY | 2018-01-27 19:49 | XMS REPORT ---
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 Name Role Phone HORACE HIGGINS Unavailable PROBLEMS Type Condition ICD9-CM Code FAM70-EM Code Onset Dates Condition Status SNOMED Code Problem Primary insomnia F51.01 Active 2049208 Problem Reactive depression F32.9 Active 16341251 Problem Asthma exacerbation J45.901 Active 799121665 Problem Irritable bowel syndrome with constipation K58.1 Active 137201977 Problem Back pain M54.9 Active 579754678 Problem Tobacco dependency F17.200 Active 62873789 Problem Low TSH level R94.6 Active 184625741 Problem PTSD (post-traumatic stress disorder) F43.10 Active 27579544 Problem Diabetic polyneuropathy associated with type 2 diabetes mellitus E11.42 Active 46233573 Problem Annual physical exam Z00.00 Active 252677169 Problem Migraine without aura and without status migrainosus, not intractable G43.009 Active 069688828 Problem Gastroparesis K31.84 Active 100727802 Problem 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 Active 850635200 Problem Neuropathy G62.9 Active 509239540 Problem Diabetes E11.9 Active 49389227 Problem Uncomplicated asthma, unspecified asthma severity J45.909 Active 872245234 Problem Anorexia R63.0 Active 09025240 Problem Mixed hyperlipidemia E78.2 Active 126955874 Problem Weight loss R63.4 Active 551302526 Problem Type 2 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 Active 67514165 Problem History of colon polyps Z86.010 Active 083000557 ALLERGIES No Information ENCOUNTERS Encounter Location Date Diagnosis [facility] [place] [address] [facility] [id number] [address] Jan, [facility] [place] [address] [id number] [address] Jan, [place] [id number] [place] [address] 89536- 2356 Jan, [place] [address] 91859- 9082 Dec, Right upper quadrant abdominal pain R10.11 [place] [id number] [place] [address] 30414- 2407 Dec, PTSD (post-traumatic stress disorder) F43.10 [place] [id number] [place] [address] 54306- 5947 Dec, LLQ pain R10.32 [place] [address] 57644- 2178 Dec, Other dorsalgia M54.89 [place] [id number] [place] [address] 81258- 1567 Dec, Neuropathy G62.9 [place] [id number] [place] [address] 10667- 9335 Dec, [place] [address] 72770- 0954 Nov, Irritable bowel syndrome with constipation K58.1 ; Uncomplicated asthma, unspecified asthma severity J45.909 and Type 2 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 [facility] [id number] [place] [address] [id number] Nov, Dental examination Z01.20 [place] [id number] [place] [address] 46120- 6443 Nov, Other dorsalgia M54.89 [place] [address] 59412- 6063 Nov, LLQ pain R10.32 ; Low TSH level R94.6 and Gastroparesis K31.84 [place] [address] 02321- 6392 Nov, Anorexia R63.0 [place] [id number] [place] [address] 70316- 3577 Nov, Asthma exacerbation J45.901 [place] [id number] [place] [address] 17814- 7985 Oct, PTSD (post-traumatic stress disorder) F43.10 [place] [address] 422586- 5364 Oct, [place] [address] 64676- 6432 Oct, PTSD (post-traumatic stress disorder) F43.10 and Tobacco dependency F17.200 [place] [address] 10724- 3936 Oct, [place] [address] 52305- 8535 Oct, Other dorsalgia M54.89 [place] [address] 43203- 7240 Oct, Anorexia R63.0 [place] [address] 81773- 2089 September, PTSD (post-traumatic stress disorder) F43.10 [place] [id number] [place] [address] 62751- 4410 September, Low TSH level R94.6 [place] [address] 03844- 4360 September, Other dorsalgia M54.89 [place] [address] 02797- 3086 September, Annual physical exam Z00.00 and Migraine without aura and without status migrainosus, not intractable G43.009 [place] [address] 42500- 7338 September, Abnormal TSH R94.6 and Dysfunction of left eustachian tube H69.82 [facility] [place] [id number] [place] [address] 85602- 5949 Aug, [facility] [place] [id number] [place] [address] Aug, Anorexia R63.0 [facility] [id number] [place] [address] [id number] Aug, Dental examination Z01.20 and Xerostomia K11.7 [facility] [place] [address] 67940 0952 Aug, Neuropathy G62.9 [place] [address] 58701 1672 Aug, [place] [address] 18264- 7811 Aug, Other dorsalgia M54.89 [place] [id number] [place] [address] 06642- 3175 Aug, Type 2 diabetes mellitus with diabetic autonomic (poly) 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 ; Diabetic polyneuropathy associated with type 2 diabetes mellitus E11.42 ; Bronchitis J40 ; Gastroparesis K31.84 and Reactive depression F32.9 [place] [id number] [place] [address] 52015- 3721 Aug, PTSD (post-traumatic stress disorder) F43.10 [place] [id number] [place] [address] 05552- 0603 Aug, Other dorsalgia M54.89 and Anorexia R63.0 [place] [id number] [place] [address] 32236- 7789 Jul, [facility] [place] [id number] [place] [address] 82726- 7889 Jul, Other dorsalgia M54.89 [place] [address] 54187- 6285 Jul, [facility] [place] [id number] [place] [address] 91403- 7152 Jul, [facility] [place] [id number] [place] [address] 68377- 2052 Jul, PTSD (post-traumatic stress disorder) F43.10 [facility] [place] [id number] [place] [address] 98486- 6526 Jul, [facility] [place] [id number] [place] [address] 03978- 9149 Jul, [facility] [place] [id number] [place] [address] 15005- 1286 Jul, [facility] [place] [id number] [place] [address] 62908- 1786 Jul, Anorexia R63.0 [facility] [place] [id number] [place] [address] 14785- 4319 Jun, [facility] [place] [id number] [place] [address] 72878- 1130 Jun, Vaginal discharge N89.8 ; Visit for gynecologic examination Z01.419 and Pelvic pressure in female R10.2 [facility] [place] [id number] [place] [address] 11684- 9010 Jun, [facility] [place] [id number] [place] [address] 18725- 9982 Jun, Other dorsalgia M54.89 [facility] [place] [id number] [place] [address] 52350- 3816 Jun, [facility] [place] [id number] [place] [address] 54007- 7726 Jun, [facility] [place] [id number] [place] [address] 133335- 0166 Jun, [facility] [place] [id number] [place] [address] 30530- 1772 May, Back pain M54.9 [facility] [place] [id number] [place] [address] 15758- 8076 May, Anorexia R63.0 [facility] [place] [address] 40315- 7920 May, Other dorsalgia M54.89 [facility] [place] [address] 18639- 5371 May, [facility] [place] [address] 76841- 3130 May, Bronchitis J40 [place] [address] 73418- 3247 May, Type 2 diabetes mellitus with diabetic autonomic (poly) 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 ; 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 ; Back pain M54.9 and Neuropathy G62.9 [place] [address] 81340- 4052 May, Left breast mass N63.20 [facility] [place] [id number] [place] [address] 73929- 9310 May, [facility] [place] [address] 20207- 7410 Apr, Other dorsalgia M54.89 [facility] [place] [id number] [place] [address] 90577- 2001 Apr, Anorexia R63.0 [facility] [place] [id number] [place] [address] 57178- 5586 Apr, Anorexia R63.0 [facility] [place] [address] 74231- 9330 Apr, Mass of left breast N63.20 [facility] [place] [id number] [place] [address] 19584- 8539 Apr, [facility] [place] [address] 50325- 0948 Apr, [facility] [place] [id number] [place] [address] 77210- 1924 14 Apr, 2017 Diarrhea of presumed infectious origin A09 [facility] [place] [id number] [place] [address] 00294- 8776 Apr, Encounter for immunization Z23 [facility] [place] [id number] [place] [address] 84917 2546 Apr, [facility] [place] [id number] [place] [address] 98930 2541 Mar, Other dorsalgia M54.89 [facility] [place] [id number] [place] [address] 26946- 1736 Mar, [facility] [place] [id number] [place] [address] 65210- 2041 Mar, [facility] [place] [id number] [place] [address] 03157- 8412 Mar, Anorexia R63.0 [facility] [place] [id number] [place] [address] 51070- 7573 Mar, [facility] [place] [id number] [place] [address] 26566- 0114 Mar, Other dorsalgia M54.89 [facility] [place] [id number] [place] [address] 79384- 3907 Mar, [facility] [place] [id number] [place] [address] 88237 2544 Mar, Encounter for immunization Z23 [facility] [place] [id number] [place] [address] 75633- 1210 Feb, Anorexia R63.0 [facility] [place] [id number] [place] [address] 69447- 3967 Feb, Diabetes E11.9 [facility] [place] [id number] [place] [address] 62216- 3680 Feb, Back pain M54.9 and Diabetes E11.9 [facility] [place] [id number] [place] [address] 16448- 8317 Feb, Diabetes E11.9 [facility] [place] [id number] [place] [address] 33868- 9941 Feb, Neuropathy G62.9 [facility] [place] [address] 70703- 8456 Feb, Encounter for immunization Z23 ; Epigastric pain R10.13 ; Weight loss, abnormal R63.4 and Neuropathy G62.9 [facility] [address] [id number] Feb, [facility] [place] [id number] [place] [address] 87725- 8596 Feb, [facility] [place] [address] 15022- 9810 Feb, Intractable vomiting with nausea, unspecified vomiting type R11.2 [facility] [id number] [place] [address] 49817 -3242 Feb, Chronic nausea R11.0 [facility] [place] [id number] [place] [address] 36758- 3736 Feb, Other dorsalgia M54.89 [facility] [place] [id number] [place] [address] 22054- 0522 Jan, [facility] [place] [id number] [place] [address] 13211- 7859 Jan, [facility] [place] [id number] [place] [address] 09151- 5261 Jan, [facility] [place] [id number] [place] [address] 75945- 8802 Jan, [facility] [place] [id number] [place] [address] 45759- 5279 08 Sep, 2017 Asthma exacerbation J45.901 ; Bronchitis J40 and Neuropathy G62.9 [facility] [place] [id number] [place] [address] 79001- 2336 06 Jan, 2017 Anorexia R63.0 [facility] [place] [id number] [place] [address] 14107- 6676 Jan, Other dorsalgia M54.89 [facility] [place] [id number] [place] [address] 31593- 2420 Dec, [facility] [place] [id number] [place] [address] 85373- 8863 Dec, [facility] [place] [id number] [place] [address] 72218- 7293 Dec, Anorexia R63.0 [facility] [place] [id number] [place] [address] 43504- 0851 Dec, Primary insomnia F51.01 [facility] [place] [id number] [place] [address] 01976- 7875 Dec, Other dorsalgia M54.89 [facility] [place] [id number] [place] [address] 73690- 8619 Dec, [facility] [place] [id number] [place] [address] 77901- 4723 Nov, [facility] [place] [id number] [place] [address] 94453- 2112 Nov, [facility] [place] [id number] [place] [address] 81023- 9707 Nov, [facility] [place] [id number] [place] [address] 31583- 8505 Nov, History of colon polyps Z86.010 [facility] [place] [id number] [place] [address] 81690- 8317 Nov, Weight loss R63.4 ; Nausea and vomiting, intractability of vomiting not specified, unspecified vomiting type R11.2 and Abnormal LFTs R79.89 [facility] [place] [id number] [place] [address] 14886- 6475 18 Nov, 2016 [facility] [place] [id number] [place] [address] 64015- 6926 Nov, Neuropathy G62.9 and Pain in right knee M25.561 [facility] [place] [id number] [place] [address] 75561- 2756 12 Nov, 2016 Back pain M54.9 [facility] [place] [id number] [place] [address] 44770- 6540 10 Nov, 2016 [facility] [place] [id number] [place] [address] 23527- 1305 Nov, Bronchitis J40 [facility] [place] [id number] [place] [address] 67336- 6541 Nov, Weight loss R63.4 [facility] [place] [id number] [place] [address] 94470- 9081 Oct, Back pain M54.9 [facility] [place] [id number] [place] [address] 07255- 7881 16 Oct, 2016 [facility] [place] [id number] [place] [address] 01549- 5922 Oct, Back pain M54.9 [facility] [place] [id number] [place] [address] 53398- 2665 Oct, Type 2 diabetes mellitus without complications E11.9 and Bronchitis J40 [facility] [place] [id number] [place] [address] 21006 2545 05 Oct, 2016 [facility] [place] [id number] [place] [address] 16431 2546 Oct, [facility] [place] [id number] [place] [address] 29154- 5939 September, Gastroparesis K31.84 ; Type 2 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 and Neuropathy G62.9 [facility] [place] [id number] [place] [address] 70874- 0004 September, Other dorsalgia M54.89 [facility] [place] [id number] [place] [address] 77100- 2165 September, [facility] [place] [id number] [place] [address] 84660- 3770 September, [facility] [place] [address] 80487- 4209 Aug, Gastroparesis K31.84 and Radicular leg pain M54.10 [facility] [place] [address] 99433- 2106 Aug, Anorexia R63.0 [facility] [place] [address] [address] Aug, Bronchitis J40 [facility] [place] [address] [address] Aug, Back pain M54.9 [facility] [place] [address] [place] [id number] [place] [address] Aug, Routine gynecological examination Z01.419 ; Routine screening for STI (sexually transmitted infection) Z11.3 and Yeast infection of the vagina B37.3 [facility] [place] [id number] [place] [address] Jul, Other dorsalgia M54.89 [facility] [place] [id number] [place] [address]- [address] Jul, Diabetes E11.9 and Gastroparesis K31.84 [facility] [place] [id number] [place] [phone]- [address] Jun, [facility] [place] [id number] [place] [address]- [address]642 Jun, Back pain M54.9 [facility] [place] [id number] [place] [id number]- [address] 14 Jun, 2016 Neuropathy G62.9 [facility] [id number] [place] [id number] 02 Jun, 2016 Encounter for dental examination Z01.20 [facility] [place] [id number] [place] [id number]- [address] 01 Jun, 2016 Gastroparesis 536.3 and Anorexia R63.0 [facility] [place] [address] [address] May, Other dorsalgia M54.89 [facility] [place] [address] 160[address]- [address] 10 May, 2016 Periumbilical abdominal pain R10.33 ; Weight loss R63.4 and Gastroparesis K31.84 [facility] [place] [id number] [place] [address]- 4437 May, Back pain M54.9 [facility] [place] [id number] [place] [address] 2546 Apr, Anorexia R63.0 [facility] [place] [address] [address] 2546 Apr, Anorexia R63.0 [facility] [place] [id number] [place] [id number] 2545 Apr, Back pain M54.9 [facility] [place] [id number] [place] [id number] 2546 Apr, Back pain M54.9 [facility] [place] [id number] [place] [address] 2546 Apr, [facility] [place] [address] [address] 2546 Apr, Bronchitis J40 and Neuropathy G62.9 [facility] [place] [id number] [place] [address] 2546 Apr, Neuropathy G62.9 [facility] [place] [id number] [place] [address] 30[address]- [address] Apr, [facility] [place] [address] [address]- [address] Apr, Back pain M54.9 [facility] [place] [address] [address] Mar, Type 2 diabetes mellitus with diabetic autonomic (poly) 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 [facility] [place] [address] [address] Mar, Type 2 diabetes mellitus without complications E11.9 [place] [address] [address]- [address] Mar, Neuropathy G62.9 [place] [address] [address]- [address] Mar, [place] [address] [address] [address]- [address] Mar, Breast cancer screening Z12.39 [place] [address] [address]- 0438 Mar, Other dorsalgia M54.89 [facility] [place] [address] [address]- 5172 Feb, [place] [address] 6[address]32- 1708 Jan, Neuropathy G62.9 ; Type 2 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 ; Uncomplicated asthma, unspecified asthma severity J45.909 and Encounter for immunization Z23 [place] [address] [address]31- 0765 Jan, [facility] [place] [address] 07165- 0472 Jan, [place] [address] 13630- 9680 Dec, [facility] [place] [address] [place] [id number] [place] [address] 09972- 0509 Dec, [facility] [place] [address] [place] [id number] [place] [address] 84770- 6968 Nov, [facility] [place] [address] [place] [id number] [place] [address] 41001- 7050 Nov, Back pain M54.9 [facility] [place] [address] [place] [id number] [place] [address] 87305- 8426 Nov, Neuropathy G62.9 ; Mixed hyperlipidemia E78.2 ; Type 2 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 and 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 [facility] [place] [address] [place] [id number] [place] [address] 39039- 0802 Oct, [facility] [place] [address] [place] [id number] [place] [address] 26031- 9208 Oct, Other dorsalgia M54.89 [facility] [place] [address] [place] [id number] [place] [address] 29592- 7806 September, Primary insomnia F51.01 [facility] [place] [address] [place] [id number] [place] [address] 89482- 9468 September, [facility] [place] [address] [place] [id number] [place] [address] 54245- 9909 Aug, Other dorsalgia M54.89 [facility] [place] [address] [place] [id number] [place] [address] 64236- 6627 Jul, [facility] [place] [address] [place] [id number] [place] [address] 05173- 9201 Jul, Other dorsalgia M54.89 [facility] [place] [address] [place] [id number] [place] [address] 98394- 4674 Jul, Diabetes E11.9 ; Back pain M54.9 ; Neuropathy G62.9 and Gastroparesis K31.84 [facility] [place] [address] [id number] [place] [address] 23909- 0368 Jun, [facility] [address] [place] [id number] [place] [address] 32220- 5969 Jun, Other dorsalgia M54.89 [facility] [address] [place] [id number] [place] [address] [id number] 2544 May, [facility] [address] [place] [id number] [place] [address] 77316- 3470 May, Radicular leg pain M54.10 and Other dorsalgia M54.89 [facility] [address] [place] [id number] [place] [address] 16915- 4771 Apr, [facility] [address] [place] [id number] [place] [address] 49108- 9059 Mar, [facility] [address] [place] [id number] [place] [address] 19243- 6133 Mar, [facility] [address] [place] [id number] [place] [address] 51460- 5787 Mar, Radicular leg pain M54.10 [facility] [address] [place] [id number] [place] [address] 79474- 4873 Feb, [facility] [id number] [place] [address] 61258- 7886 Feb, [facility] [address] [place] [id number] [place] [address] 38761- 7552 Feb, [facility] [id number] [place] [address] 79853- 2544 Jan, [facility] [address] [place] [id number] [place] [address] 43915- 3732 22 Jan, 2015 IBS (irritable bowel syndrome) 564.1 [facility] [id number] [place] [address] 02310- 0476 Jan, [facility] [address] [place] [id number] [place] [address] 13987- 4993 Jan, [facility] [place] [id number] [place] [address] 081757- 8545 Jan, Diabetes mellitus without mention of complication, type II or unspecified type, not stated as uncontrolled 250.00 ; Gastroparesis 536.3 and Hypoacusis 389.9 [facility] [place] [address] [place] [id number] [place] [address] 46856- 1468 Jan, [facility] [place] [address] [place] [id number] [place] [address] 179536- 8106 Jan, [facility] [place] [address] [place] [id number] [place] [address] 77731- 8886 Dec, [facility] [place] [address] [place] [id number] [place] [address] 45497- 7690 Dec, [facility] [place] [address] [place] [id number] [place] [address] 54847- 6946 Dec, [facility] [place] [address] [place] [id number] [place] [address] 41127- 6844 Dec, Back pain 724.5 and Gastroparesis 536.3 [facility] [place] [address] [place] [id number] [place] [address] 47666- 2077 Nov, [facility] [id number] [place] [address] [id number] Nov, Dental examination V72.2 [facility] [place] [address] [place] [id number] [place] [address] 93086- 8207 Nov, [facility] [place] [address] [place] [id number] [place] [address] 18316- 0162 Nov, [facility] [place] [address] [place] [id number] [place] [address] 65446- 6267 Nov, Depressive disorder, not elsewhere classified 311 and No condition on Depew II V71.09 [facility] [place] [address] [place] [id number] [place] [address] 90294- 9460 Nov, Diabetes 250.00 and Symptomatic menopausal or female climacteric states 627.2 [facility] [place] [id number] [address]- 1606 Oct, [facility] [address] [address]- 1376 Oct, Lumbar strain 847.2 [facility] [address] [id number] [address]- 5888 Oct, Gastroparesis 536.3 and Unspecified myalgia and myositis 729.1 [facility] [place] [id number] [address]- 1365 Aug, [facility] [address] [place] [id number] [place] [address] 69677- 2650 Aug, [facility] [place] [address] [address]- 8080 Jul, [facility] [id number] [address]- 6441 Jul, [facility] [id number] [address]- 5062 Jul, [facility] [id number] [address]- 0415 Jul, [facility] [place] [id number] [address]- 6926 Jul, [facility] [place] [id number] [address]- 6766 Jun, [facility] [id number] 3258 Jun, [facility] [id number] 8356 Jun, [facility] [place] [id number] [address]- 5000 May, [facility] [place] [facility] [address] [facility] [id number] [place] [address]- 1842 May, [facility] [place] [facility] [address] [id number] [place] [address]- 2746 Mar, [facility] [place] [facility] [address] [id number] [place] [address]- 8515 Mar, [facility] [place] [facility] [address] [id number] [place] [address]- 6061 Mar, [facility] [place] [facility] [address] [id number] [place] [address]- 3668 Mar, [facility] [place] [facility] [address] [id number] [place] [address]- 3587 Mar, [facility] [place] [facility] [address] [id number] [place] [address]- 9820 Mar, [facility] [place] [facility] [address] [id number] [place] [address]- 7695 Feb, [facility] [place] [facility] [address] [id number] [place] [address]- 7551 Feb, [facility] [place] [facility] [address] [id number] [place] [address]- 7481 Nov, [facility] [place] [facility] [address] [id number] [place] [address]- 4080 Nov, [facility] [place] [facility] [address] [id number] [place] [address]- 4825 Nov, [facility] [place] [facility] [address] [id number] [place] [address]- 3535 Oct, [facility] [place] [facility] [address] [id number] [place] [address]- 3380 September, [facility] [place] [facility] [address] [id number] [place] [address]- 7546 Aug, [facility] [place] [facility] [address] [id number] [place] [address]- 9657 Aug, [facility] [address] [id number] [place] [address]- 3867 Aug, [facility] [place] [facility] [address] [id number] [place] [address]- 8927 Aug, [facility] [place] [facility] [address] [id number] [place] [address]- 5843 Aug, [facility] [place] [facility] [address] [id number] [place] [address]- 8511 Aug, [facility] [place] [facility] [address] [id number] [place] [address]- 5771 Aug, [facility] [place] [facility] [address] [id number] [place] [address]- 6146 Aug, [facility] [place] [facility] [address] [place] [id number] [place] [address]- 9669 Jul, [facility] [place] [facility] [address] [id number] [address]- 2482 Jul, [facility] [place] [facility] [address] [id number] [place] [address]- 0157 Jun, [facility] [place] [facility] [address] [id number] [address]- 6653 Jun, [facility] [place] [facility] [address] [id number] [address]- 8605 Jun, [facility] [place] [facility] [address] [id number] [place] [address]- 6139 Jun, [facility] [place] [facility] [address] [id number] [place] [address]- 9843 Jun, [facility] [place] [facility] [address] [id number] [address]- 7134 Jun, [facility] [place] [facility] [address] [facility] [id number] [address]- 8791 04 Jun, 2012 [facility] [place] [facility] [address] [facility] [id number] [place] [address]- 4305 31 May, 2012 [facility] [place] [address] [facility] [id number] [address]- 2042 May, [facility] [place] [address] [place] [id number] [address]- 2521 May, [facility] [place] [address] [facility] [id number] [place] [address]- 6463 May, [facility] [place] [address] [facility] [id number] [place] [address]- 3318 Mar, [facility] [place] [address] [facility] [id number] [place] [address]- 3538 Mar, [facility] [place] [address] [facility] [id number] [address]- 1932 Jan, IMMUNIZATIONS No Known Immunizations SOCIAL HISTORY Never Assessed REASON FOR VISIT Oxycodone due 11/07 PLAN OF CARE VITAL SIGNS MEDICATIONS Medication Instructions Dosage Frequency Start Date End Date Duration Status Oxycodone-Acetaminophen 10-325 MG Orally 4 times a day 1 tablet as needed 6h 15 Oct, 2017 28 days Active RESULTS No Results PROCEDURES [...] vomitting-[facility] 03/05/17 Hospitalization History hospital stay at [facility] for stomach issues 2016
--- OUTSIDE RECORDS SUMMARY | 2018-01-27 19:50 | XMS REPORT ---
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 Name Role Phone HORACE HIGGINS Unavailable PROBLEMS Type Condition ICD9-CM Code [id number] Code Onset Dates Condition Status SNOMED Code Problem Primary insomnia F51.01 Active 6569309 Problem Reactive depression F32.9 Active 72439920 Problem Asthma exacerbation J45.901 Active 077335589 Problem Irritable bowel syndrome with constipation K58.1 Active 098294449 Problem Back pain M54.9 Active 433741663 Problem Tobacco dependency F17.200 Active 70543636 Problem Low TSH level R94.6 Active 598932054 Problem PTSD (post-traumatic stress disorder) F43.10 Active 93283572 Problem Diabetic polyneuropathy associated with type 2 diabetes mellitus E11.42 Active 68370947 Problem Annual physical exam Z00.00 Active 979179151 Problem Migraine without aura and without status migrainosus, not intractable G43.009 Active 180767850 Problem Gastroparesis K31.84 Active 997722781 Problem 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 Active 854058322 Problem Neuropathy G62.9 Active 840471969 Problem Diabetes E11.9 Active 61024735 Problem Uncomplicated asthma, unspecified asthma severity J45.909 Active 144982858 Problem Anorexia R63.0 Active 75430521 Problem Mixed hyperlipidemia E78.2 Active 857365164 Problem Weight loss R63.4 Active 086801753 Problem Type 2 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 Active 71218774 Problem History of colon polyps Z86.010 Active 863732921 ALLERGIES No Information ENCOUNTERS Encounter Location Date Diagnosis [facility] [address] [id number] [address] Jan, [facility] [address] [id number] [address] Jan, [facility] [id number] [place] [address] 71785- 8139 Jan, [place] [address] 5[address]80- 2371 Dec, PTSD (post-traumatic stress disorder) F43.10 [place] [id number] [place] [address] 32833- 1657 Dec, LLQ pain R10.32 [place] [address] 18077- 6891 Dec, Other dorsalgia M54.89 [place] [address] 97310- 2339 Dec, Neuropathy G62.[address] 61650- 4583 Dec, [place] [address] 08977- 7101 Nov, Irritable bowel syndrome with constipation K58.1 ; Uncomplicated asthma, unspecified asthma severity J45.909 and Type 2 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 [facility] [id number] [place] [address] [id number] Nov, Dental examination Z01.20 [place] [id number] [place] [address] 67271- 1456 Nov, Other dorsalgia M54.89 [place] [id number] [place] [address] 17732- 6183 Nov, LLQ pain R10.32 ; Low TSH level R94.6 and Gastroparesis K31.84 [place] [id number] [place] [address] 27401- 2207 Nov, Anorexia R63.0 [place] [id number] [place] [address] 66862- 3482 Nov, Asthma exacerbation J45.901 [place] [id number] [place] [address] 46213- 0104 Oct, PTSD (post-traumatic stress disorder) F43.10 [place] [id number] [place] [address] 79693- 7226 Oct, [place] [address] 30177- 3017 Oct, PTSD (post-traumatic stress disorder) F43.10 and Tobacco dependency F17.200 [place] [address] 29281- 1709 Oct, [place] [address] 93727- 6439 Oct, Other dorsalgia M54.89 [place] [address] 91251- 7709 Oct, Anorexia R63.0 [place] [address] 15429- 7101 September, PTSD (post-traumatic stress disorder) F43.10 [place] [address] 54386- 5797 September, Low TSH level R94.6 [place] [address] 10065- 3663 September, Other dorsalgia M54.89 [place] [address] 01597- 6020 September, Annual physical exam Z00.00 and Migraine without aura and without status migrainosus, not intractable G43.009 [place] [id number] [place] [address] 61949- 5522 September, Abnormal TSH R94.6 and Dysfunction of left eustachian tube H69.82 [place] [address] 82788- 5383 Aug, [facility] [id number] [place] [address] 14274- 1194 Aug, Anorexia R63.0 [facility] [id number] [place] [address] [id number] Aug, Dental examination Z01.20 and Xerostomia K11.7 [facility] [id number] [place] [address] 69998- 3477 Aug, Neuropathy G62.9 [facility] [id number] [place] [address] 99489- 4087 Aug, [facility] [address] 49967- 6851 Aug, Other dorsalgia M54.89 [facility] [id number] [place] [address] 46393- 0223 Aug, Type 2 diabetes mellitus with diabetic autonomic (poly) 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 ; Diabetic polyneuropathy associated with type 2 diabetes mellitus E11.42 ; Bronchitis J40 ; Gastroparesis K31.84 and Reactive depression F32.9 [facility] [id number] [place] [address] 44524- 5740 Aug, PTSD (post-traumatic stress disorder) F43.10 [facility] [id number] [place] [address] 50388- 7566 Aug, Other dorsalgia M54.89 and Anorexia R63.0 [facility] [id number] [place] [address] 91242- 4816 Jul, [facility] [id number] [place] [address] 99649- 9279 Jul, Other dorsalgia M54.89 [facility] [id number] [place] [address] 19887- 2722 Jul, [facility] [id number] [place] [address] 20342- 5319 Jul, [facility] [id number] [place] [address] 44384- 5195 Jul, PTSD (post-traumatic stress disorder) F43.10 [facility] [id number] [place] [address] 69467- 8326 Jul, [facility] [id number] [place] [address] 82472- 0456 Jul, [facility] [address] 85059- 0638 Jul, [facility] [id number] [place] [address] 27165- 1633 Jul, Anorexia R63.0 [facility] [address] 31893- 4386 Jun, [facility] [address] 45608- 5953 Jun, Vaginal discharge N89.8 ; Visit for gynecologic examination Z01.419 and Pelvic pressure in female R10.2 [facility] [id number] [place] [address] 02903- 8421 Jun, [facility] [id number] [place] [address] 33876- 0218 Jun, Other dorsalgia M54.89 [facility] [id number] [place] [address] 51150- 0636 Jun, [facility] [id number] [place] [address] 93203- 2548 Jun, [facility] [id number] [place] [address] 15160- 2346 Jun, [facility] [id number] [place] [address] 23275- 1606 May, Back pain M54.9 [facility] [address] 34143- 4568 May, Anorexia R63.0 [facility] [id number] [place] [address] 09537- 2670 May, Other dorsalgia M54.89 [facility] [id number] [place] [address] 21798- 5623 May, [facility] [address] 75049- 9848 May, Bronchitis J40 [facility] [address] 84424- 6703 May, Type 2 diabetes mellitus with diabetic autonomic (poly) 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 ; 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 ; Back pain M54.9 and Neuropathy G62.9 [place] [address] 72289- 6474 May, Left breast mass N63.20 [place] [address] 87204- 7014 May, [facility] [address] 13701- 7173 Apr, Other dorsalgia M54.89 [facility] [id number] [place] [address] 23361- 2056 Apr, Anorexia R63.0 [facility] [id number] [place] [address] 64779 2546 Apr, Anorexia R63.0 [facility] [id number] [place] [address] 63691 2540 Apr, Mass of left breast N63.20 [facility] [address] 63298 2546 Apr, [facility] [id number] [place] [address] 73342 2541 Apr, [facility] [address] 25119- 7453 Apr, Diarrhea of presumed infectious origin A09 [facility] [id number] [place] [address] 46643- 1915 Apr, Encounter for immunization Z23 [facility] [id number] [place] [address] 25782- 3714 Apr, [facility] [id number] [place] [address] 48945- 9741 Mar, Other dorsalgia M54.89 [facility] [id number] [place] [address] 10346- 0059 Mar, [facility] [address] 76659- 9635 Mar, [facility] [id number] [place] [address] 36176- 3134 Mar, Anorexia R63.0 [facility] [address] 60645- 3062 Mar, [facility] [id number] [place] [address] 91335- 2193 Mar, Other dorsalgia M54.89 [facility] [id number] [place] [address] 11328- 4579 Mar, [facility] [id number] [place] [address] 22809- 2505 Mar, Encounter for immunization Z23 [facility] [id number] [place] [address] 98785- 5071 Feb, Anorexia R63.0 [facility] [id number] [place] [address] 08228- 4752 Feb, Diabetes E11.9 [facility] [id number] [place] [address] 26531- 2981 Feb, Back pain M54.9 and Diabetes E11.9 [facility] [address] 88493- 6224 Feb, Diabetes E11.9 [facility] [id number] [place] [address] 30210- 5884 Feb, Neuropathy G62.9 [facility] [address] 85095- 4116 Feb, Encounter for immunization Z23 ; Epigastric pain R10.13 ; Weight loss, abnormal R63.4 and Neuropathy G62.9 [facility] [address] [id number] Feb, [facility] [address] 91458- 1060 Feb, [place] [address] 00754- 5308 Feb, Intractable vomiting with nausea, unspecified vomiting type R11.2 [facility] [address] 60431 -2939 Feb, Chronic nausea R11.0 [facility] [address] 86933- 4643 Feb, Other dorsalgia M54.89 [facility] [address] 72068- 6676 Jan, [facility] [address] 97586- 2713 Jan, [facility] [address] 41567- 7876 Jan, [facility] [address] 51034- 4332 Jan, [facility] [address] 66393- 3985 Jan, Asthma exacerbation J45.901 ; Bronchitis J40 and Neuropathy G62.9 [facility] [address] 76781- 2520 Jan, Anorexia R63.0 [facility] [id number] [place] [address] 77632- 5586 Jan, Other dorsalgia M54.89 [facility] [id number] [place] [address] 34004- 3216 Dec, [facility] [id number] [place] [address] 50189- 0386 Dec, [facility] [address] 46774- 0276 Dec, Anorexia R63.0 [facility] [address] 27779- 7967 Dec, Primary insomnia F51.01 [facility] [id number] [place] [address] 39713- 4518 Dec, Other dorsalgia M54.89 [facility] [address] 83178- 1602 Dec, [facility] [id number] [place] [address] 63454- 7106 Nov, [facility] [id number] [place] [address] 44385- 2959 Nov, [facility] [id number] [place] [address] 85002- 7387 Nov, [facility] [id number] [place] [address] 52097- 1412 Nov, History of colon polyps Z86.010 [facility] [id number] [place] [address] 84881- 0173 Nov, Weight loss R63.4 ; Nausea and vomiting, intractability of vomiting not specified, unspecified vomiting type R11.2 and Abnormal LFTs R79.89 [facility] [id number] [place] [address] 11301- 9244 Nov, [facility] [address] [id number] [address]- 1322 14 Nov, 2016 Neuropathy G62.9 and Pain in right knee M25.561 [facility] [id number] [place] [address] 66993- 2264 12 Nov, 2016 Back pain M54.9 [facility] [id number] [place] [address] 93426- 2291 10 Nov, 2016 [facility] [id number] [place] [address] 37753- 9633 08 Nov, 2016 Bronchitis J40 [facility] [id number] [place] [address] 84783- 3526 03 Nov, 2016 Weight loss R63.4 [facility] [id number] [place] [address] 02585- 2890 16 Oct, 2016 Back pain M54.9 [facility] [id number] [place] [address] 22435- 6210 16 Oct, 2016 [facility] [id number] [place] [address] 85607- 7736 14 Oct, 2016 Back pain M54.9 [facility] [id number] [place] [address] 80583- 4424 13 Oct, 2016 Type 2 diabetes mellitus without complications E11.9 and Bronchitis J40 [facility] [id number] [place] [address] 64745- 9731 05 Oct, 2016 [facility] [id number] [place] [address] 51666- 6646 Oct, [facility] [id number] [place] [address] 10159- 8580 September, Gastroparesis K31.84 ; Type 2 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 and Neuropathy G62.9 [facility] [address] [place] [address] 03341- 3912 September, Other dorsalgia M54.89 [facility] [address] [place] [address] 99446- 9489 September, [facility] [address] 44762- 3420 September, [facility] [id number] [place] [address] 85310- 8975 Aug, Gastroparesis K31.84 and Radicular leg pain M54.10 [facility] [address] 30100- 7025 Aug, Anorexia R63.0 [facility] [address] 32703- 7347 Aug, Bronchitis J40 [facility] [address] 42873- 4502 Aug, Back pain M54.9 [facility] [address] 26254- 2627 Aug, Routine gynecological examination Z01.419 ; Routine screening for STI (sexually transmitted infection) Z11.3 and Yeast infection of the vagina B37.3 [facility] [id number] [place] [address] 44145- 6716 Jul, Other dorsalgia M54.89 [facility] [id number] [place] [address] 98463- 2458 Jul, Diabetes E11.9 and Gastroparesis K31.84 [facility] [id number] [place] [address] 16974- 4085 Jun, [facility] [id number] [place] [address] 68136- 3966 Jun, Back pain M54.9 [facility] [id number] [place] [address] 92803- 0463 Jun, Neuropathy G62.9 [facility] [address] [id number] 02 Jun, 2016 Encounter for dental examination Z01.20 [facility] [id number] [place] [address] 02258- 6781 Jun, Gastroparesis 536.3 and Anorexia R63.0 [facility] [id number] [place] [address] 22266- 1457 May, Other dorsalgia M54.89 [facility] [address] 80220- 2960 May, Periumbilical abdominal pain R10.33 ; Weight loss R63.4 and Gastroparesis K31.84 [facility] [address] 28696- 7313 May, Back pain M54.9 [facility] [id number] [place] [address] 28432- 3176 Apr, Anorexia R63.0 [facility] [address] 48265- 3066 Apr, Anorexia R63.0 [facility] [address] 42388- 8361 Apr, Back pain M54.9 [facility] [id number] [place] [address] 89567- 6538 Apr, Back pain M54.9 [facility] [id number] [place] [address] 42171- 7246 Apr, [facility] [id number] [place] [address] 20780- 3027 Apr, Bronchitis J40 and Neuropathy G62.9 [facility] [address] 08235- 5676 Apr, Neuropathy G62.9 [facility] [id number] [place] [address] 00264- 8296 Apr, [facility] [id number] [place] [address] 61811- 2204 Apr, Back pain M54.9 [facility] [id number] [place] [address] 08910- 1436 Mar, Type 2 diabetes mellitus with diabetic autonomic (poly) 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 [facility] [id number] [place] [address] 51938- 4012 Mar, Type 2 diabetes mellitus without complications E11.9 [facility] [id number] [place] [address] 42957- 1049 Mar, Neuropathy G62.9 [place] [address] 77940- 9686 Mar, [place] [id number] [place] [address] 59278- 1767 Mar, Breast cancer screening Z12.39 [place] [id number] [place] [address] 61489- 0595 Mar, Other dorsalgia M54.89 [facility] [id number] [place] [address] 47282- 1244 Feb, [facility] [id number] [place] [address] 04525- 5789 Jan, Neuropathy G62.9 ; Type 2 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 ; Uncomplicated asthma, unspecified asthma severity J45.909 and Encounter for immunization Z23 [facility] [id number] [place] [address] 64007- 5562 Jan, [facility] [id number] [place] [address] 82874- 1273 Jan, [facility] [id number] [place] [address] 71438- 5591 Dec, [facility] [id number] [place] [address] 98846- 9964 Dec, [facility] [id number] [place] [address] 68219- 7390 Nov, [facility] [id number] [place] [address] 83603- 5878 Nov, Back pain M54.9 [facility] [id number] [place] [address] 99737- 9168 Nov, Neuropathy G62.9 ; Mixed hyperlipidemia E78.2 ; Type 2 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 and custodial 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 Z79.4 [facility] [id number] [place] [address] 31003- 1184 Oct, [facility] [id number] [place] [address] 97464- 2592 Oct, Other dorsalgia M54.89 [facility] [id number] [place] [address] 94280- 6526 September, Primary insomnia F51.01 [facility] [id number] [place] [address] 14373- 5579 September, [facility] [id number] [place] [address] 36351- 4769 Aug, Other dorsalgia M54.89 [facility] [id number] [place] [address] 43815- 9620 Jul, [facility] [id number] [place] [address] 16095- 4179 Jul, Other dorsalgia M54.89 [facility] [id number] [place] [address] 65192- 3242 Jul, Diabetes E11.9 ; Back pain M54.9 ; Neuropathy G62.9 and Gastroparesis K31.84 [facility] [id number] [place] [address] 12796- 7275 Jun, [facility] [id number] [place] [address] 40962- 5495 Jun, Other dorsalgia M54.89 [facility] [id number] [place] [address] 46851- 8693 May, [facility] [id number] [place] [address] 86616- 7575 May, Radicular leg pain M54.10 and Other dorsalgia M54.89 [facility] [id number] [place] [address] 18897- 8398 Apr, [facility] [id number] [place] [address] 93664- 1338 Mar, [facility] [id number] [place] [address] 58538- 5267 Mar, [facility] [id number] [place] [address] 59504- 4542 Mar, Radicular leg pain M54.10 [facility] [id number] [place] [address] 28261- 4936 Feb, [facility] [id number] [place] [address] 32318- 8645 Feb, [facility] [id number] [place] [address] 74256- 3087 Feb, [facility] [id number] [place] [address] 65513- 9931 Jan, [facility] [id number] [place] [address] 37618- 0224 Jan, IBS (irritable bowel syndrome) 564.1 [facility] [id number] [place] [address] 61255- 4442 Jan, [facility] [id number] [place] [address] 86624- 7053 Jan, [facility] [id number] [place] [address] 76813- 4970 Jan, Diabetes mellitus without mention of complication, type II or unspecified type, not stated as uncontrolled 250.00 ; Gastroparesis 536.3 and Hypoacusis 389.9 [facility] [id number] [place] [address] 88467- 6286 Jan, [facility] [id number] [place] [address] 65917- 3128 Jan, [facility] [id number] [place] [address] 50935- 8429 Dec, [facility] [id number] [place] [address] 23295- 9806 Dec, [facility] [id number] [place] [address] 22444- 1133 Dec, [facility] [id number] [place] [address]79- 3924 Dec, Back pain 724.5 and Gastroparesis 536.3 [facility] [id number] [place] [address]3476- 5637 Nov, [facility] [address] [id number] Nov, Dental examination V72.2 [facility] [id number] [place] [address] 10878- 9191 Nov, [facility] [id number] [place] [address] 23538- 2874 Nov, [facility] [id number] [place] [address]51- 2438 Nov, Depressive disorder, not elsewhere classified 311 and No condition on [place] V71.09 [facility] [id number] [place] [address] 20876- 1817 Nov, Diabetes 250.00 and Symptomatic menopausal or female climacteric states 627.2 [facility] [id number] [place] [address] 77772- 5938 Oct, [facility] [address] [facility] [address] [id number], [place] [address] Oct, Lumbar strain 847.2 [facility] [address] [id number] [address] Oct, Gastroparesis 536.3 and Unspecified myalgia and myositis 729.1 [facility] [address] [facility] [address] [id number], [place] [address] Aug, [facility] [address] [facility] [address] [id number] [address] Aug, [facility] [address] [facility] [address] [id number], [place] [address] Jul, [facility] [address] [id number], [place] [address] Jul, [facility] [address] [facility] [address] [id number], [place] [address] Jul, [facility] [address] [facility] [address] [id number], [place] [address]2 Jul, [facility] [address] [id number] [address] Jul, [facility] [address] [id number] [address] Jun, [facility] [address] [facility] [address] [id number], [place] [address]398 Jun, [facility] [address] [facility] [address] [id number], [place] [address]38 Jun, [facility] [address] [facility] [address] [id number], [place] [address]676 May, [facility] [address] [facility] [address] [id number], [place] [address] 2787 May, [facility] [id number] [place] [address] Mar, [facility] [place] [facility] [address] [id number] [place] [address] 8993 Mar, [facility] [place] [facility] [address] [id number] [place] [address]- 3413 Mar, [facility] [place] [facility] [address] [id number] [place] [address]- 5355 Mar, [facility] [place] [facility] [address] [id number] [place] [address]- 2980 Mar, [facility] [place] [facility] [address] [id number] [place] [address]- 0130 Mar, [facility] [place] [facility] [address] [id number] [place] [address]- 7118 Feb, [facility] [place] [facility] [address] [id number] [place] [address]- 3085 Feb, [facility] [place] [facility] [address] [id number] [place] [address]- 6226 Nov, [facility] [place] [facility] [address] [id number] [place] [address]- 0301 Nov, [facility] [place] [facility] [address] [id number] [place] [address]- 8574 Nov, [facility] [place] [facility] [address] [id number] [place] [address]- 0799 Oct, [facility] [place] [facility] [address] [id number] [place] [address]- 1270 September, [facility] [place] [facility] [address] [id number] [place] [address] 8962 Aug, [facility] [place] [facility] [address] [id number] [place] [address]- 1450 15 Aug, 2012 [facility] [place] [facility] [address] [id number] [place] [address]- 9451 Aug, [facility] [place] [facility] [address] [id number] [place] [address]- 0049 Aug, [facility] [place] [facility] [address] [id number] [place] [address]- 5852 Aug, [facility] [place] [facility] [address] [id number] [place] [address]- 3872 Aug, [facility] [place] [facility] [address] [id number] [place] [address]- 9686 Aug, [facility] [place] [facility] [address] [id number] [place] [address]- 4340 Aug, [facility] [place] [facility] [address] [id number] [place] [address]- 6362 Jul, [facility] [place] [facility] [address] [facility] [address] [id number] [place] [address]- 7515 Jul, [facility] [place] [facility] [address] [id number] [place] [address]- 9692 Jun, [facility] [place] [facility] [address] [id number] [place] [address]- 7784 Jun, [facility] [place] [facility] [address] [facility] [address] [id number] [place] [address]- 7548 Jun, [facility] [place] [facility] [id number] [address]- 9858 Jun, [facility] [place] [facility] [address] [id number], [place] [address]- [address]271 Jun, [facility] [place] [facility] [address] [id number] [place] [address]- 3298 Jun, [facility] [place] [facility] [address] [id number], [place] [address]- 2035 Jun, [facility] [place] [facility] [address] [id number], [place] [address]- 8279 May, [facility] [place] [facility] [address] [id number], [place] [address]- 1496 May, [facility] [address] [facility] [address] [id number] [place] [address]- 8799 May, [facility] [address] [facility] [address] [id number], [place] [address] May, [facility] [address] [facility] [address] [id number], [place] [address]- 9956 Mar, [facility] [address] [facility] [address] [id number], [place] [address]- 3446 Mar, [facility] [address] [facility] [address] [id number], [place] [address]- 2353 Jan, IMMUNIZATIONS No Known Immunizations SOCIAL HISTORY Never Assessed REASON FOR VISIT Marin[place] PLAN OF CARE VITAL SIGNS MEDICATIONS Medication [...] vomitting-[facility] 03/05/17 Hospitalization History hospital stay at [facility] for stomach issues 2016
--- OUTSIDE RECORDS SUMMARY | 2018-01-27 19:50 | XMS REPORT ---
Author Author DELFIN RACH [facility] Address [address] [place] [address] Care Team Providers Care Endoscopy Rn Name Role Phone EDWINBERNADETTE CROSSA Unavailable PROBLEMS Type Condition ICD9-CM Code [id number] Code Onset Dates Condition Status SNOMED Code Problem Primary insomnia F51.01 Active 9675579 Problem Reactive depression F32.9 Active 60416287 Problem Asthma exacerbation J45.901 Active 530184922 Problem Irritable bowel syndrome with constipation K58.1 Active 646100417 Problem Back pain M54.9 Active 043505778 Problem Tobacco dependency F17.200 Active 80703728 Problem Low TSH level R94.6 Active 372979991 Problem PTSD (post-traumatic stress disorder) F43.10 Active 54760464 Problem Diabetic polyneuropathy associated with type 2 diabetes mellitus E11.42 Active 92858947 Problem Annual physical exam Z00.00 Active 799575311 Problem Migraine without aura and without status migrainosus, not intractable G43.009 Active 625500563 Problem Gastroparesis K31.84 Active 385971029 Problem 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.4 Active 558369884 Problem Neuropathy G62.9 Active 333673825 Problem Diabetes E11.9 Active 35532463 Problem Uncomplicated asthma, unspecified asthma severity J45.909 Active 859825289 Problem Anorexia R63.0 Active 32056143 Problem Mixed hyperlipidemia E78.2 Active 790101376 Problem Weight loss R63.4 Active 779567636 Problem Type 2 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 Active 97813478 Problem History of colon polyps Z86.010 Active 030640799 ALLERGIES No Information ENCOUNTERS Encounter Location Date Diagnosis [facility] [address] [facility] [id number] [address] 18 Jan, 2018 [facility] [address] [id number] [address] Jan, [facility] [id number] [place] [address] 51542- 6824 Jan, [facility] [address] 9[address]15- 8435 Dec, LLQ pain R10.32 [facility] [address] 14217- 7343 Dec, Other dorsalgia M54.89 [facility] [address] 90098- 0022 Dec, Neuropathy G62.9 [place] [address] 75701- 9593 Dec, [facility] [address] 22327- 4441 Nov, Irritable bowel syndrome with constipation K58.1 ; Uncomplicated asthma, unspecified asthma severity J45.909 and Type 2 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 [facility] [id number] [place] [id number] Nov, Dental examination Z01.20 [place] [id number] [place] [address] 78207- 0043 Nov, Other dorsalgia M54.89 [place] [id number] [place] [address] 10570- 5272 Nov, LLQ pain R10.32 ; Low TSH level R94.6 and Gastroparesis K31.84 [facility] [id number] [place] [address] 47584- 7577 Nov, Anorexia R63.0 [facility] [address] 58088- 3490 Nov, Asthma exacerbation J45.901 [place] [address] 79958- 0234 Oct, PTSD (post-traumatic stress disorder) F43.10 [place] [id number] [place] [address] 42959- 8446 Oct, [place] [address] 254 Oct, PTSD (post-traumatic stress disorder) F43.10 and Tobacco dependency F17.200 [place] [address] 2546 Oct, [place] [address] 19838 6910 Oct, Other dorsalgia M54.89 [place] [address] 083 Oct, Anorexia R63.0 [place] [address] 89179 2972 September, PTSD (post-traumatic stress disorder) F43.10 [place] [address] 65612 3559 September, Low TSH level R94.6 [place] [address] 27006 0409 September, Other dorsalgia M54.89 [place] [address] 02189 0526 September, Annual physical exam Z00.00 and Migraine without aura and without status migrainosus, not intractable G43.009 [place] [address] 97950- 6504 September, Abnormal TSH R94.6 and Dysfunction of left eustachian tube H69.82 [place] [address] 82949- 9706 Aug, [facility] [address] 93665- 6216 Aug, Anorexia R63.0 [place] [address] [id number] Aug, Dental examination Z01.20 and Xerostomia K11.7 [facility] [id number] [place] [address] 24300- 6834 Aug, Neuropathy G62.9 [facility] [id number] [place] [address] 42936- 0890 Aug, [facility] [address] 25073 4269 Aug, Other dorsalgia M54.89 [place] [address] 61027- 4712 Aug, Type 2 diabetes mellitus with diabetic autonomic (poly) 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 ; Diabetic polyneuropathy associated with type 2 diabetes mellitus E11.42 ; Bronchitis J40 ; Gastroparesis K31.84 and Reactive depression F32.9 [facility] [id number] [place] [address] 70423- 9839 Aug, PTSD (post-traumatic stress disorder) F43.10 [facility] [id number] [place] [address] 16344- 4564 Aug, Other dorsalgia M54.89 and Anorexia R63.0 [facility] [id number] [place] [address] 03350- 2254 Jul, [facility] [id number] [place] [address] 78154- 4897 Jul, Other dorsalgia M54.89 [facility] [id number] [place] [address] 03464- 5520 Jul, [facility] [address] 985947- 3279 Jul, [facility] [id number] [place] [address] 31811- 7289 Jul, PTSD (post-traumatic stress disorder) F43.10 [place] [id number] [place] [address] 62712 2546 Jul, [facility] [id number] [place] [address] 55194 2546 Jul, [facility] [id number] [place] [address] 69708 2546 Jul, [facility] [address] 99613 2546 Jul, Anorexia R63.0 [facility] [id number] [place] [address] 95165 2546 Jun, [facility] [id number] [place] [address] 42743 2546 22 Jun, 2017 Vaginal discharge N89.8 ; Visit for gynecologic examination Z01.419 and Pelvic pressure in female R10.2 [facility] [id number] [place] [address] 41211 2546 Jun, [facility] [id number] [place] [address] 71749 2546 Jun, Other dorsalgia M54.89 [facility] [id number] [place] [address] 03103 2546 16 Jun, 2017 [facility] [id number] [place] [address] 98544 2546 Jun, [facility] [id number] [place] [address] 22905 2546 Jun, [facility] [id number] [place] [address] 76029 2546 May, Back pain M54.9 [facility] [id number] [place] [address] 33050 2546 May, Anorexia R63.0 [facility] [id number] [place] [address] 43324 2546 May, Other dorsalgia M54.89 [facility] [id number] [place] [address] 45184 2546 May, [facility] [address] 84740 2546 May, Bronchitis J40 [facility] [id number] [place] [address] 73374 2546 May, Type 2 diabetes mellitus with diabetic autonomic (poly) 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 ; 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.4 ; Back pain M54.9 and Neuropathy G62.9 [facility] [address] 16822- 2966 May, Left breast mass N63.20 [facility] [id number] [place] [address] 31537- 4446 May, [facility] [address] 71684- 7486 Apr, Other dorsalgia M54.89 [facility] [id number] [place] [address] 56416 2546 Apr, Anorexia R63.0 [facility] [id number] [place] [address] 30122 2546 Apr, Anorexia R63.0 [facility] [id number] [place] [address] 12893 2546 Apr, Mass of left breast N63.20 [facility] [id number] [place] [address] 57164 2546 Apr, [facility] [id number] [place] [address] 23059- 8066 Apr, [facility] [id number] [place] [address] 61283- 6548 14 Apr, 2017 Diarrhea of presumed infectious origin A09 [facility] [id number] [place] [address] 63735- 3262 Apr, Encounter for immunization Z23 [facility] [id number] [place] [address] 88798- 6776 Apr, [facility] [address] 26933- 1991 Mar, Other dorsalgia M54.89 [facility] [address] 79370- 6436 Mar, [facility] [address] 07164- 8654 Mar, [facility] [address] 44095- 1149 Mar, Anorexia R63.0 [facility] [address] 81405- 7729 Mar, [facility] [address] 09535- 7221 Mar, Other dorsalgia M54.89 [facility] [id number] [place] [address] 24894- 9352 Mar, [facility] [id number] [place] [address] 54944- 9648 Mar, Encounter for immunization Z23 [facility] [id number] [place] [address] 13545- 8936 Feb, Anorexia R63.0 [facility] [id number] [place] [address] 54689- 4382 Feb, Diabetes E11.9 [facility] [id number] [place] [address] 26383- 4504 Feb, Back pain M54.9 and Diabetes E11.9 [facility] [id number] [place] [address] 24055- 9368 Feb, Diabetes E11.9 [facility] [address] 66410- 5721 Feb, Neuropathy G62.9 [facility] [id number] [place] [address] 03439- 2194 Feb, Encounter for immunization Z23 ; Epigastric pain R10.13 ; Weight loss, abnormal R63.4 and Neuropathy G62.9 [facility] [id number] [place] [address] [id number] Feb, [facility] [address] 50140- 4374 Feb, [facility] [address] 95859- 4559 Feb, Intractable vomiting with nausea, unspecified vomiting type R11.2 [facility] [address] 16575 -6519 Feb, Chronic nausea R11.0 [facility] [address] 62737- 2595 Feb, Other dorsalgia M54.89 [facility] [address] 77398- 7248 Jan, [facility] [address] 54496- 9053 Jan, [facility] [id number] [place] [address] 66876- 7594 Jan, [facility] [address] 44265- 6714 Jan, [facility] [address] 66259- 4414 Jan, Asthma exacerbation J45.901 ; Bronchitis J40 and Neuropathy G62.9 [facility] [id number] [place] [address] 25973- 5408 Jan, Anorexia R63.0 [facility] [address] 37640- 7229 Jan, Other dorsalgia M54.89 [facility] [address] [place] [address] 78130- 8556 Dec, [facility] [id number] [place] [address] 86365- 6456 Dec, [facility] [id number] [place] [address] 89560- 6296 Dec, Anorexia R63.0 [facility] [id number] [place] [address] 00875- 9086 Dec, Primary insomnia F51.01 [facility] [id number] [place] [address] 73307- 0776 Dec, Other dorsalgia M54.89 [facility] [id number] [place] [address] 82605- 9427 Dec, [facility] [id number] [place] [address] 73317- 9130 Nov, [facility] [id number] [place] [address] 36148- 3873 Nov, [facility] [id number] [place] [address] 40618- 1463 Nov, [facility] [id number] [place] [address] 40107- 4287 Nov, History of colon polyps Z86.010 [facility] [id number] [place] [address] 93466- 3447 Nov, Weight loss R63.4 ; Nausea and vomiting, intractability of vomiting not specified, unspecified vomiting type R11.2 and Abnormal LFTs R79.89 [facility] [id number] [place] [address] 56547- 7006 Nov, [facility] [id number] [place] [address] 81973- 7779 Nov, Neuropathy G62.9 and Pain in right knee M25.561 [facility] [address] [place] [address] 23604- 6250 12 Nov, 2016 Back pain M54.9 [facility] [id number] [place] [address] 37918- 6047 10 Nov, 2016 [facility] [id number] [place] [address] 52795- 6020 08 Nov, 2016 Bronchitis J40 [facility] [id number] [place] [address] 72509- 8331 Nov, Weight loss R63.4 [facility] [id number] [place] [address] 48006- 4824 Oct, Back pain M54.9 [facility] [id number] [place] [address] 96040- 5519 16 Oct, 2016 [facility] [id number] [place] [address] 12075- 3369 Oct, Back pain M54.9 [facility] [id number] [place] [address] 01966- 5650 Oct, Type 2 diabetes mellitus without complications E11.9 and Bronchitis J40 [facility] [id number] [place] [address] 18575- 9976 Oct, [facility] [id number] [place] [address] 79726- 1281 Oct, [facility] [id number] [place] [address] 03557- 4509 September, Gastroparesis K31.84 ; Type 2 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 and Neuropathy G62.9 [facility] [id number] [place] [address] 60419- 7896 September, Other dorsalgia M54.89 [facility] [id number] [place] [address] 80525- 1983 September, [facility] [id number] [place] [address] 15437- 2395 September, [facility] [id number] [place] [address] 96793- 6244 Aug, Gastroparesis K31.84 and Radicular leg pain M54.10 [facility] [address] 02419- 2556 Aug, Anorexia R63.0 [facility] [address] 75145- 0957 Aug, Bronchitis J40 [facility] [address] 41877- 7911 Aug, Back pain M54.9 [facility] [id number] [place] [address] 75184- 4371 Aug, Routine gynecological examination Z01.419 ; Routine screening for STI (sexually transmitted infection) Z11.3 and Yeast infection of the vagina B37.3 [facility] [id number] [place] [address] 00327- 4364 Jul, Other dorsalgia M54.89 [facility] [id number] [place] [address] 29434- 8497 Jul, Diabetes E11.9 and Gastroparesis K31.84 [facility] [id number] [place] [address] 42105- 5888 Jun, [facility] [id number] [place] [address] 26979- 5615 Jun, Back pain M54.9 [facility] [id number] [place] [address] 22400- 4599 Jun, Neuropathy G62.9 [facility] [address] [place] [address] [id number] Jun, Encounter for dental examination Z01.20 [facility] [address] 31313- 7327 Jun, Gastroparesis 536.3 and Anorexia R63.0 [facility] [address] 30364 2546 May, Other dorsalgia M54.89 [facility] [address] 79398 2546 May, Periumbilical abdominal pain R10.33 ; Weight loss R63.4 and Gastroparesis K31.84 [facility] [address] 23021 2546 May, Back pain M54.9 [facility] [address] 71960 2546 Apr, Anorexia R63.0 [facility] [address] 80860 2546 Apr, Anorexia R63.0 [facility] [address] 53793 2546 Apr, Back pain M54.9 [facility] [address] 71672 2546 Apr, Back pain M54.9 [facility] [address] 75314 2546 Apr, [facility] [address] 93626 2546 Apr, Bronchitis J40 and Neuropathy G62.9 [facility] [address] 95711 2546 Apr, Neuropathy G62.9 [facility] [address] 54962 2546 Apr, [facility] [address] 61102 2546 Apr, Back pain M54.9 [facility] [address] [place] [address]- 2557 Mar, Type 2 diabetes mellitus with diabetic autonomic (poly) 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 [facility] [address] 02280- 5789 Mar, Type 2 diabetes mellitus without complications E11.9 [facility] [id number] [place] [address] 82938- 9578 Mar, Neuropathy G62.9 [facility] [address] 37450- 7280 Mar, [facility] [address] 55518- 2962 Mar, Breast cancer screening Z12.39 [facility] [address] 67630- 0521 Mar, Other dorsalgia M54.89 [facility] [address] 02911- 8420 Feb, [facility] [address] 09958- 5309 Jan, Neuropathy G62.9 ; Type 2 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 ; Uncomplicated asthma, unspecified asthma severity J45.909 and Encounter for immunization Z23 [facility] [id number] [place] [address] 04067- 9568 Jan, [facility] [id number] [place] [address] 96218- 8411 Jan, [facility] [id number] [place] [address] 42168- 8822 Dec, [facility] [id number] [place] [address] 71656- 8409 Dec, [facility] [id number] [place] [address] 61946- 2025 Nov, [facility] [address] 84941- 5992 Nov, Back pain M54.9 [facility] [id number] [place] [address] 77387- 1215 Nov, Neuropathy G62.9 ; Mixed hyperlipidemia E78.2 ; Type 2 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 and 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.4 [facility] [id number] [place] [address] 14609- 0905 Oct, [facility] [id number] [place] [address] 07966- 4875 Oct, Other dorsalgia M54.89 [place] [id number] [place] [address] 44150- 9677 September, Primary insomnia F51.01 [facility] [id number] [place] [address] 99675- 6535 September, [facility] [id number] [place] [address] 50431- 1155 Aug, Other dorsalgia M54.89 [facility] [id number] [place] [address] 26261- 5208 Jul, [facility] [id number] [place] [address] 93705- 6119 Jul, Other dorsalgia M54.89 [facility] [id number] [place] [address] 46454- 7844 Jul, Diabetes E11.9 ; Back pain M54.9 ; Neuropathy G62.9 and Gastroparesis K31.84 [facility] [id number] [place] [address] 29723- 3519 Jun, [facility] [id number] [place] [address] 13653- 5311 Jun, Other dorsalgia M54.89 [facility] [id number] [place] [address] 10979- 9936 May, [facility] [id number] [address] May, Radicular leg pain M54.10 and Other dorsalgia M54.89 [facility] [id number] [place] [address] 12017- 8424 Apr, [facility] [id number] [place] [address] 72799- 3448 Mar, [facility] [id number] [place] [address] 97225- 0795 Mar, [facility] [id number] [place] [address] 45980- 9559 Mar, Radicular leg pain M54.10 [facility] [id number] [place] [address] 74132- 4762 Feb, [facility] [id number] [place] [address] 69301- 1420 Feb, [facility] [id number] [place] [address] 71472- 8911 Feb, [facility] [id number] [place] [address] 24528- 0377 Jan, [facility] [id number] [place] [address] 49354- 3415 Jan, IBS (irritable bowel syndrome) 564.1 [facility] [id number] [place] [address] 41650- 1188 Jan, [facility] [id number] [place] [address] [id number]- 0008 Jan, [facility] [id number] [place] [address] 47608- 0334 Jan, Diabetes mellitus without mention of complication, type II or unspecified type, not stated as uncontrolled 250.00 ; Gastroparesis 536.3 and Hypoacusis 389.9 [facility] [id number] [address] Jan, [facility] [address] [address] Jan, [facility] [address] [address] Dec, [facility] [id number] [address] 270[address] Dec, [facility] [address] [address] Dec, [facility] [address] [place] [address] Dec, Back pain 724.5 and Gastroparesis 536.3 [facility] [address] [address] Nov, [facility] [id number] [id number] Nov, Dental examination V72.2 [facility] [address] [address] Nov, [facility] [id number] [address] Nov, [facility] [id number] [address] Nov, Depressive disorder, not elsewhere classified 311 and No condition on [place] II V71.09 [facility] [id number], [place] [address] Nov, Diabetes 250.00 and Symptomatic menopausal or female climacteric states 627.2 [facility] [address] [id number], [place] [address] Oct, [facility] [address] [id number], [place] [address] Oct, Lumbar strain 847.2 [facility] [id number], [place] [address] Oct, Gastroparesis 536.3 and Unspecified myalgia and myositis 729.1 [facility] [address] [facility] [id number] [place] [address] 14 Aug, 2014 [facility] [address], [place] [address] Aug, [facility] [address] [facility] [id number] [place] [address] Jul, [facility] [id number] [place] [address] Jul, [facility] [address], [place] [address] Jul, [facility] [address], [place] [address] Jul, [facility] [id number], [place] [address] Jul, [facility] [address], [place] [address] Jun, [facility] [address], [place] [address] Jun, [facility] [address], [place] [address] Jun, [facility] [id number], [place] [address] May, [facility] [address], [place] [address] May, [facility] [id number], [place] [address] Mar, [facility] [address], [place] [address] Mar, [facility] [place] [facility] [address] [id number] [place] [address] Mar, [facility] [place] [facility] [address] [id number] [place] [address] Mar, [facility] [place] [facility] [address] [id number] [place] [address] Mar, [facility] [place] [facility] [address] [id number] [place] [address] Mar, [facility] [place] [facility] [address] [id number] [place] [address] Feb, [facility] [place] [facility] [address] [id number] [place] [address] Feb, [facility] [place] [facility] [address] [id number] [place] [address] Nov, [facility] [place] [facility] [address] [id number] [place] [address] Nov, [facility] [place] [facility] [address] [id number] [place] [address] Nov, [facility] [place] [facility] [address] [id number] [place] [address] Oct, [facility] [place] [facility] [address] [id number], [place] [address] September, [facility] [place] [facility] [address] [id number], [place] [address] Aug, [facility] [place] [facility] [address] [id number] [place] [address] 15 Aug, 2012 [facility] [place] [facility] [address] [id number], [place] [address] Aug, [facility] [place] [facility] [address] [id number] [place] [address] Aug, [facility] [place] [facility] [address] [id number] [place] [address] 10 Aug, 2012 [facility] [address] [id number] [place] [address] Aug, [facility] [place] [facility] [address] [id number] [place] [address] Aug, [facility] [address] [id number] [place] [address] Aug, [facility] [place] [facility] [address] [id number] [place] [address] Jul, [facility] [address] [id number] [place] [address] Jul, [facility] [place] [facility] [address] [id number] [place] [address] Jun, [facility] [address] [id number] [place] [address] Jun, [facility] [address] [id number] [place] [address] Jun, [facility] [address] [id number] [place] [address] 08 Jun, 2012 [facility] [address] [id number] [place] [address] Jun, [facility] [place] [facility] [address] [id number] [place] [address] Jun, [facility] [place] [facility] [address] [id number] [place] [address] Jun, [facility] [place] [facility] [address] [id number] [place] [address] May, [facility] [place] [facility] [address] [id number] [place] [address]- [address] May, [facility] [place] [facility] [address] [id number] [place] [address] May, [facility] [address] [facility] [id number] [address] May, [facility] [address] [facility] [id number] [address] Mar, [facility] [address] [facility] [id number] [address] Mar, [facility] [address] [facility] [id number], [place] [address] Jan, IMMUNIZATIONS No Known Immunizations SOCIAL HISTORY Never Assessed REASON FOR VISIT f/u WB-MA PLAN OF CARE Activity Details Follow Up 4 Weeks, prn Reason: VITAL SIGNS Height 62 in 2017-10-14 Weight 103 lbs 2017-10-14 Heart Rate 106 bpm 2017-10-14 Respiratory Rate 20 2017-10-14 BMI 18.84 kg/m2 2017-10-14 Blood pressure systolic 104 mmHg 2017-10-14 Blood pressure diastolic 70 mmHg 2017-10-14 MEDICATIONS Medication Instructions Dosage Frequency Start Date End Date Duration Status Omeprazole 40 mg 1 CAP(S) ONCE A DAY ORALLY 30 DAYS 30 Active Atorvastatin Calcium 40 MG TAKE ONE TABLET BY MOUTH ONCE DAILY (LAST REFILL MUST HAVE LABS) 30 Active Lyrica 150 MG Orally Twice a day 1 capsule 12h 30 days Active Ayden Contour Next Test - subcutaneously 3 times a day test blood sugar 8h Active Marinol 5 mg Orally Twice a day 1 capsule before lunch and supper 12h 28 days Active Multiple Vitamins-Iron - Orally Once a day 1 tablet 24h Active Cymbalta 30 MG Orally Once a day (take with 60mg cap) 1 capsule September, 30 day(s) Active Maxalt 5 mg Orally daily as needed Take 1 tablet when headache begins; repeat in 2 hours if not better. Not to take more than 30 mg daily September, 30 days Active Cyanocobalamin 1000 MCG Orally Once a day 1 tablet 24h Active Duloxetine HCl 60 MG Orally Once a day (take with 30mg cap) 1 capsule 30 days Active Humalog KwikPen 100 INJECT 5 UNITS SUB-Q THREE TIMES DAILY BOFORE MEALS Active Promethazine HCl 25 MG Orally every 6 hours 1 tablet 6h 30 Active Quad Cane - as directed 24h Apr, Active Comfort Lancets - as directed 8h 30 Mar, 2016 Active MiraLax - Orally Once a day as needed 1 packet mixed with 8 ounces of fluid Active Doxepin HCl 10 MG Orally Once a day 1 capsule at bedtime 24h September, 30 day(s) Active Calcium 600-200 MG-UNIT Active ProAir HFA 108 INHALE 2 PUFFS BY MOUTH FOUR TIMES DAILY NEEDED 25 Active Microlet Lancets 0 USE DIRECTED THREE TIMES DAILY 30 Active Cyclobenzaprine HCl 10 TAKE 1 TABLET BY MOUTH THREE TIMES DAILY 30 Active Tizanidine HCl 4 MG Orally 2 times a day 1 tablet 12h 30 Active Oxycodone-Acetaminophen 10-325 MG Orally 4 times a day 1 tablet as needed 6h September, 28 days Active Zofran ODT 8 MG DISSOLVE ONE TABLET ON THE TONGUE EVERY 6 HOURS 5 Active Xarelto 20 mg 1 Tablet by Oral route 1 time per day Jul, Active Vitamin D-3 1000 UNIT Orally Once a day 2 capsule 24h Active Lantus SoloStar 100 8 units 12h Active SudoGest 60 mg Orally every 6 hrs 1 tablet as needed 6h September, 07 days Active Duloxetine HCl 30 MG TAKE TWO (2) CAPSULES BY MOUTH ONCE DAILY IN THE MORNING 30 Active RESULTS No Results PROCEDURES No [...] vomitting-[facility] 03/05/17 Hospitalization History hospital stay at [facility] for stomach issues 2016
--- OUTSIDE RECORDS SUMMARY | 2018-01-27 19:51 | XMS REPORT ---
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 Name Role Phone HORACE HIGGINS Unavailable PROBLEMS Type Condition ICD9-CM Code ERA77-IG Code Onset Dates Condition Status SNOMED Code Problem Primary insomnia F51.01 Active 8705524 Problem Reactive depression F32.9 Active 05315238 Problem Asthma exacerbation J45.901 Active 912334657 Problem Irritable bowel syndrome with constipation K58.1 Active 782771053 Problem Back pain M54.9 Active 336074981 Problem Tobacco dependency F17.200 Active 80563992 Problem Low TSH level R94.6 Active 571978170 Problem PTSD (post-traumatic stress disorder) F43.10 Active 01407742 Problem Diabetic polyneuropathy associated with type 2 diabetes mellitus E11.42 Active 83900839 Problem Annual physical exam Z00.00 Active 860993889 Problem Migraine without aura and without status migrainosus, not intractable G43.009 Active 602230197 Problem Gastroparesis K31.84 Active 026802749 Problem 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 Active 821474056 Problem Neuropathy G62.9 Active 058873884 Problem Diabetes E11.9 Active 22152627 Problem Uncomplicated asthma, unspecified asthma severity J45.909 Active 592010523 Problem Anorexia R63.0 Active 60002331 Problem Mixed hyperlipidemia E78.2 Active 358208751 Problem Weight loss R63.4 Active 812256962 Problem Type 2 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 Active 44149811 Problem History of colon polyps Z86.010 Active [id number] ALLERGIES No Information ENCOUNTERS Encounter Location Date Diagnosis [facility] [place] [address] [facility] [id number] [address] Jan, [facility] [place] [address] [id number] [address] Jan, [facility] [place] [id number] [place] [address] 60953- 4656 Jan, [facility] [place] [address] 17[address]- 5954 Dec, LLQ pain R10.32 [facility] [place] [address] 14727- 8144 Dec, Other dorsalgia M54.89 [place] [address] 8[address]- 6554 Dec, Neuropathy G62.9 [place] [address] 17035- 9327 Dec, [facility] [place] [id number] [place] [address] 16528- 4404 Nov, Irritable bowel syndrome with constipation K58.1 ; Uncomplicated asthma, unspecified asthma severity J45.909 and Type 2 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 [facility] [address] [id number] Nov, Dental examination Z01.20 [place] [id number] [place] [address] 25540- 8993 Nov, Other dorsalgia M54.89 [place] [id number] [place] [address] 11970- 7666 Nov, LLQ pain R10.32 ; Low TSH level R94.6 and Gastroparesis K31.84 [place] [id number] [place] [address] 40317- 6429 Nov, Anorexia R63.0 [place] [address] 50778- 4623 Nov, Asthma exacerbation J45.901 [place] [address] 98051- 1917 Oct, PTSD (post-traumatic stress disorder) F43.10 [facility] [place] [id number] [place] [address] 63901 2546 Oct, [facility] [place] [address] [id number] 254 Oct, PTSD (post-traumatic stress disorder) F43.10 and Tobacco dependency F17.200 [facility] [place] [address] 460862 2546 Oct, [facility] [place] [address] 64959 2546 Oct, Other dorsalgia M54.89 [place] [address] [address]862 8076 Oct, Anorexia R63.0 [facility] [place] [address] 60936 6256 September, PTSD (post-traumatic stress disorder) F43.10 [facility] [place] [id number] [place] [address] 66617 2546 September, Low TSH level R94.6 [facility] [place] [address] 47431- 5056 September, Other dorsalgia M54.89 [facility] [place] [address] 62718 2546 September, Annual physical exam Z00.00 and Migraine without aura and without status migrainosus, not intractable G43.009 [facility] [place] [id number] [place] [address] 20189- 0346 September, Abnormal TSH R94.6 and Dysfunction of left eustachian tube H69.82 [facility] [place] [id number] [place] [address] 36246 2546 Aug, [facility] [place] [address] 22509 2546 Aug, Anorexia R63.0 [facility] [id number] [place] [address] [id number] Aug, Dental examination Z01.20 and Xerostomia K11.7 [facility] [place] [id number] [place] [address] 95672- 8414 Aug, Neuropathy G62.9 [facility] [place] [address] 98228- 4831 Aug, [facility] [place] [address] 05836 8259 Aug, Other dorsalgia M54.89 [place] [address] [place] [id number] Aug, Type 2 diabetes mellitus with diabetic autonomic (poly) 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 ; Diabetic polyneuropathy associated with type 2 diabetes mellitus E11.42 ; Bronchitis J40 ; Gastroparesis K31.84 and Reactive depression F32.9 [place] [id number] [place] [address] 30566- 7174 Aug, PTSD (post-traumatic stress disorder) F43.10 [facility] [place] [id number] [place] [address] 87994- 3921 Aug, Other dorsalgia M54.89 and Anorexia R63.0 [facility] [place] [id number] [place] [address] 40618- 5070 Jul, [facility] [place] [id number] [place] [address] 70865- 7947 Jul, Other dorsalgia M54.89 [facility] [place] [id number] [place] [address] 47995- 1837 Jul, [facility] [place] [address] 67734- 3492 Jul, [facility] [place] [id number] [place] [address] 65236- 6772 Jul, PTSD (post-traumatic stress disorder) F43.10 [place] [address] [address] 84[address] Jul, [facility] [place] [id number] [place] [address] 30528 2546 Jul, [facility] [place] [id number] [place] [address] 55310 2546 Jul, [facility] [place] [id number] [place] [address] 20191 2546 Jul, Anorexia R63.0 [facility] [place] [id number] [place] [address] 36347- 5216 Jun, [facility] [place] [id number] [place] [address] 61677- 7006 Jun, Vaginal discharge N89.8 ; Visit for gynecologic examination Z01.419 and Pelvic pressure in female R10.2 [facility] [place] [id number] [place] [address] 85823 2546 Jun, [facility] [place] [id number] [place] [address] 60991- 5255 Jun, Other dorsalgia M54.89 [facility] [place] [id number] [place] [address] 59600 2546 16 Jun, 2017 [facility] [place] [id number] [place] [address] 06730 2546 Jun, [facility] [place] [id number] [place] [address] 91233 2546 Jun, [facility] [place] [id number] [place] [address] 92360 2546 May, Back pain M54.9 [facility] [place] [id number] [place] [address] 36920 2546 May, Anorexia R63.0 [facility] [place] [id number] [place] [address] 24463 2546 May, Other dorsalgia M54.89 [facility] [place] [id number] [place] [address] 57438- 7676 May, [facility] [place] [address] 54824 2546 May, Bronchitis J40 [facility] [place] [address] 50962- 0577 May, Type 2 diabetes mellitus with diabetic autonomic (poly) 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 ; FPC 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 Z79.4 ; Back pain M54.9 and Neuropathy G62.9 [facility] [place] [address] 99753- 3335 May, Left breast mass N63.20 [facility] [place] [address] 74537- 3766 May, [facility] [place] [address] 39146- 1297 Apr, Other dorsalgia M54.89 [facility] [place] [address] 18940 2546 Apr, Anorexia R63.0 [facility] [place] [address] 30057 2546 Apr, Anorexia R63.0 [facility] [place] [id number] [place] [address] 19120 2546 Apr, Mass of left breast N63.20 [facility] [place] [id number] [place] [address] 99987 2546 Apr, [facility] [place] [address] 89040- 6256 Apr, [facility] [place] [id number] [place] [address] 17987 2549 Apr, Diarrhea of presumed infectious origin A09 [facility] [place] [address] 62519- 9912 Apr, Encounter for immunization Z23 [facility] [place] [id number] [place] [address] 62023- 0858 Apr, [facility] [place] [id number] [place] [address] 68766- 0546 Mar, Other dorsalgia M54.89 [facility] [place] [id number] [place] [address] 09315 2546 Mar, [facility] [place] [id number] [place] [address] 52376 2546 Mar, [facility] [place] [id number] [place] [address] 98968- 8276 Mar, Anorexia R63.0 [facility] [place] [id number] [place] [address] 74598- 1806 Mar, [facility] [place] [id number] [place] [address] 15448- 5889 Mar, Other dorsalgia M54.89 [facility] [place] [id number] [place] [address] 69404- 0453 Mar, [facility] [place] [id number] [place] [address] 81184- 4830 Mar, Encounter for immunization Z23 [facility] [place] [id number] [place] [address] 22862- 1010 Feb, Anorexia R63.0 [facility] [place] [id number] [place] [address] 00379- 6386 Feb, Diabetes E11.9 [facility] [place] [id number] [place] [address] 53148- 0377 Feb, Back pain M54.9 and Diabetes E11.9 [facility] [place] [id number] [place] [address] 75036- 3858 Feb, Diabetes E11.9 [facility] [place] [id number] [place] [address] 83416- 2392 Feb, Neuropathy G62.9 [facility] [place] [id number] [place] [address] 81321- 9359 Feb, Encounter for immunization Z23 ; Epigastric pain R10.13 ; Weight loss, abnormal R63.4 and Neuropathy G62.9 [facility] [id number] [place] [address] [id number] Feb, [facility] [place] [address] 57789- 9237 Feb, [facility] [place] [address] 82790- 2885 Feb, Intractable vomiting with nausea, unspecified vomiting type R11.2 [facility] [id number] [place] [address] 40080 -0471 Feb, Chronic nausea R11.0 [facility] [place] [address] 19202- 1646 Feb, Other dorsalgia M54.89 [facility] [place] [address] 53691- 4092 Jan, [facility] [place] [address] 00154- 6005 Jan, [facility] [place] [id number] [place] [address] 36792- 1182 Jan, [facility] [place] [address] 45493- 3348 Jan, [facility] [place] [address] 76900- 0145 Jan, Asthma exacerbation J45.901 ; Bronchitis J40 and Neuropathy G62.9 [facility] [place] [id number] [place] [address] 03818- 5643 06 Jan, 2017 Anorexia R63.0 [facility] [place] [id number] [place] [address] 48518- 4837 Jan, Other dorsalgia M54.89 [facility] [place] [id number] [place] [address] 73301- 1296 Dec, [facility] [place] [id number] [place] [address] 14323- 7086 Dec, [facility] [place] [id number] [place] [address] 60540- 2656 Dec, Anorexia R63.0 [facility] [place] [id number] [place] [address] 46669- 6190 Dec, Primary insomnia F51.01 [facility] [place] [id number] [place] [address] 00542- 8795 Dec, Other dorsalgia M54.89 [facility] [place] [id number] [place] [address] 01753- 8479 Dec, [facility] [place] [id number] [place] [address] 63949- 8279 Nov, [facility] [place] [id number] [place] [address] 60885- 8852 Nov, [facility] [place] [id number] [place] [address] 37003- 3356 Nov, [facility] [place] [id number] [place] [address] 77919- 2656 Nov, History of colon polyps Z86.010 [facility] [place] [id number] [place] [address] 48595- 6181 Nov, Weight loss R63.4 ; Nausea and vomiting, intractability of vomiting not specified, unspecified vomiting type R11.2 and Abnormal LFTs R79.89 [facility] [place] [id number] [place] [address] 96474- 6716 Nov, [facility] [place] [id number] [place] [address] 29899- 6942 Nov, Neuropathy G62.9 and Pain in right knee M25.561 [facility] [place] [address] [address]- 9655 12 Nov, 2016 Back pain M54.9 [facility] [place] [id number] [place] [address] 86107- 2024 10 Nov, 2016 [facility] [place] [id number] [place] [address] 79597- 1720 08 Nov, 2016 Bronchitis J40 [facility] [place] [id number] [place] [address] 65358- 4272 Nov, Weight loss R63.4 [facility] [place] [id number] [place] [address] 60082- 8200 16 Oct, 2016 Back pain M54.9 [facility] [place] [id number] [place] [address] 23648- 6235 16 Oct, 2016 [facility] [place] [id number] [place] [address] 37439- 9624 Oct, Back pain M54.9 [facility] [place] [id number] [place] [address] 61283- 0113 Oct, Type 2 diabetes mellitus without complications E11.9 and Bronchitis J40 [facility] [place] [id number] [place] [address] 37319- 1031 Oct, [facility] [place] [id number] [place] [address] 28438- 3128 Oct, [facility] [place] [id number] [place] [address] 61358- 0874 September, Gastroparesis K31.84 ; Type 2 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 and Neuropathy G62.9 [facility] [place] [id number] [place] [address] 81005- 9590 September, Other dorsalgia M54.89 [facility] [place] [id number] [place] [address] 86635- 1147 September, [facility] [place] [id number] [place] [address] 09677- 9643 September, [facility] [place] [id number] [place] [address] 58708- 9398 Aug, Gastroparesis K31.84 and Radicular leg pain M54.10 [facility] [place] [id number] [place] [address] 61780- 1645 Aug, Anorexia R63.0 [facility] [place] [address] 30899- 9260 Aug, Bronchitis J40 [facility] [place] [address] 89307- 2494 Aug, Back pain M54.9 [facility] [place] [id number] [place] [address] 39959- 0306 Aug, Routine gynecological examination Z01.419 ; Routine screening for STI (sexually transmitted infection) Z11.3 and Yeast infection of the vagina B37.3 [facility] [place] [id number] [place] [address] 04129- 8470 Jul, Other dorsalgia M54.89 [facility] [place] [id number] [place] [address] 96675- 1011 Jul, Diabetes E11.9 and Gastroparesis K31.84 [facility] [place] [id number] [place] [address] 80429- 1045 Jun, [facility] [place] [id number] [place] [address] 22385- 3258 Jun, Back pain M54.9 [facility] [place] [id number] [place] [address] 94245- 5061 Jun, Neuropathy G62.9 [facility] [id number] [place] [address] [id number] 02 Jun, 2016 Encounter for dental examination Z01.20 [facility] [place] [address] 07213- 0011 Jun, Gastroparesis 536.3 and Anorexia R63.0 [facility] [place] [address] 34648 2546 May, Other dorsalgia M54.89 [facility] [place] [address] 84777 2546 May, Periumbilical abdominal pain R10.33 ; Weight loss R63.4 and Gastroparesis K31.84 [facility] [place] [address] [address] May, Back pain M54.9 [facility] [place] [address] [address] Apr, Anorexia R63.0 [facility] [place] [address] [address] Apr, Anorexia R63.0 [facility] [place] [address] [address] Apr, Back pain M54.9 [facility] [place] [address] [address] Apr, Back pain M54.9 [facility] [place] [address] [address] Apr, [facility] [place] [address] [address] Apr, Bronchitis J40 and Neuropathy G62.9 [facility] [place] [id number] [place] [id number] Apr, Neuropathy G62.9 [facility] [place] [address] [address] Apr, [facility] [place] [address] [address] Apr, Back pain M54.9 [facility] [place] [address] [place] [address] Mar, Type 2 diabetes mellitus with diabetic autonomic (poly) 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 [facility] [place] [id number] [place] [address] Mar, Type 2 diabetes mellitus without complications E11.9 [facility] [place] [id number] [place] [address] Mar, Neuropathy G62.9 [facility] [place] [id number] [place] [id number] Mar, [facility] [place] [id number] [place] [id number] Mar, Breast cancer screening Z12.39 [facility] [place] [address] [id number] [place] [address] 39711- 4532 Mar, Other dorsalgia M54.89 [facility] [place] [address] 8[address]- 5506 Feb, [facility] [place] [id number] [place] [address] 65028- 1054 Jan, Neuropathy G62.9 ; Type 2 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 ; Uncomplicated asthma, unspecified asthma severity J45.909 and Encounter for immunization Z23 [facility] [place] [id number] [place] [address] 76818- 1650 Jan, [facility] [place] [id number] [place] [address] 56388- 4121 Jan, [facility] [place] [id number] [place] [address] 41530- 7381 Dec, [facility] [place] [id number] [place] [address] 55228- 8747 Dec, [facility] [place] [id number] [place] [address] 37977- 8465 Nov, [facility] [place] [id number] [place] [address] 65655- 5123 Nov, Back pain M54.9 [facility] [place] [id number] [place] [address] 34548- 7505 Nov, Neuropathy G62.9 ; Mixed hyperlipidemia E78.2 ; Type 2 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 and [facility] 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 Z79.4 [facility] [place] [id number] [place] [address] 52408- 8125 Oct, [facility] [place] [address] 32353- 2367 Oct, Other dorsalgia M54.89 [place] [address] 69213- 0747 September, Primary insomnia F51.01 [place] [address] 76542- 9200 September, [facility] [place] [address] 98903- 7157 Aug, Other dorsalgia M54.89 [place] [id number] [place] [address] 20940- 7820 Jul, [facility] [place] [id number] [place] [address] 44428- 3983 Jul, Other dorsalgia M54.89 [facility] [place] [id number] [place] [address] 32264- 0723 Jul, Diabetes E11.9 ; Back pain M54.9 ; Neuropathy G62.9 and Gastroparesis K31.84 [facility] [place] [id number] [place] [address] 40171- 3829 Jun, [facility] [place] [address] 75075- 0902 Jun, Other dorsalgia M54.89 [facility] [place] [id number] [place] [address] 25044- 7009 May, [facility] [place] [address] [place] [address] 20370- 7059 May, Radicular leg pain M54.10 and Other dorsalgia M54.89 [facility] [place] [id number] [place] [address] 51234- 1066 Apr, [facility] [place] [id number] [place] [address] 95266- 5208 Mar, [facility] [place] [id number] [place] [address] 43874- 6975 Mar, [facility] [place] [id number] [place] [address] 80977- 9925 Mar, Radicular leg pain M54.10 [facility] [place] [id number] [place] [address] 44234- 6913 Feb, [facility] [place] [id number] [place] [address] 79241- 5921 Feb, [facility] [place] [id number] [place] [address] 81744- 0708 Feb, [facility] [place] [id number] [place] [address] 11943- 0583 Jan, [facility] [place] [id number] [place] [address] 10444- 8141 Jan, IBS (irritable bowel syndrome) 564.1 [facility] [place] [id number] [place] [address] 41984- 8485 Jan, [facility] [place] [id number] [place] [address] 09660- 4090 Jan, [facility] [place] [id number] [place] [address] 14712- 0775 Jan, Diabetes mellitus without mention of complication, type II or unspecified type, not stated as uncontrolled 250.00 ; Gastroparesis 536.3 and Hypoacusis 389.9 [facility] [place] [id number] [address]375 Jan, [facility] [place] [address] [address] 1215 Jan, [facility] [place] [address] 8463 Dec, [facility] [place] [address] [place] [address] 417812- 4416 Dec, [facility] [place] [address] [address]- 2038 Dec, [facility] [place] [address] [place] [address] 90552- 7859 Dec, Back pain 724.5 and Gastroparesis 536.3 [facility] [place] [address] [address]- 8918 Nov, [facility] [address] [place] [address] [id number] Nov, Dental examination V72.2 [facility] [place] [address] [place] [address] 75865- 0514 Nov, [facility] [place] [address] [address]- 2947 Nov, [facility] [place] [id number] [address]- 3138 Nov, Depressive disorder, not elsewhere classified 311 and No condition on [place] II V71.09 [facility] [place] [id number] [address]- 6074 Nov, Diabetes 250.00 and Symptomatic menopausal or female climacteric states 627.2 [facility] [place] [address] [address] 6398 Oct, [facility] [place] [id number] [address]- 7220 Oct, Lumbar strain 847.2 [facility] [place] [address] [facility] [id number] [address]- 4484 Oct, Gastroparesis 536.3 and Unspecified myalgia and myositis 729.1 [facility] [place] [address] [id number] [place] [address]- 7597 14 Aug, 2014 [facility] [place] [address] [facility] [id number] [address]- 6652 Aug, [facility] [place] [address] [facility] [id number] [place] [address]- 0302 Jul, [facility] [place] [address] [facility] [id number] [place] [address]- 9317 Jul, [facility] [place] [address] [facility] [id number] [place] [address]- 4261 Jul, [facility] [place] [id number] [address]- 9095 Jul, [facility] [place] [address] [facility] [id number] [address]- 5560 Jul, [facility] [place] [id number] [address]- 5711 Jun, [facility] [place] [address] [facility] [id number] [address]- 5942 Jun, [facility] [place] [id number] [address]- 9281 Jun, [facility] [place] [address] [facility] [id number] [address]- 8152 May, [facility] [place] [address] [facility] [id number][place] 3961 May, [facility] [place] [address] [facility] [id number][place] [address]- 2033 Mar, [facility] [place] [address] [facility] [id number] 1129 Mar, [facility] [place] [facility] [address] [id number] [place] [address]- 3531 Mar, [facility] [place] [facility] [address] [id number] [place] [address]- 6352 Mar, [facility] [place] [facility] [address] [id number] [place] [address]- 9529 Mar, [facility] [place] [facility] [address] [id number] [place] [address]- 4575 Mar, [facility] [place] [facility] [address] [id number] [place] [address]- 0603 Feb, [facility] [place] [facility] [address] [id number] [place] [address]- 1955 Feb, [facility] [place] [facility] [address] [id number] [place] [address]- 2458 Nov, [facility] [place] [facility] [address] [id number] [place] [address]- 7707 Nov, [facility] [place] [facility] [address] [id number] [place] [address]- 0035 Nov, [facility] [place] [facility] [address] [id number] [place] [address]- 6012 Oct, [facility] [place] [facility] [address] [id number] [place] [address]- 6091 September, [facility] [place] [facility] [address] [id number] [place] [address]- 7920 Aug, [facility] [place] [facility] [address] [id number] [place] [address]- 0192 15 Aug, 2012 [facility] [place] [facility] [address] [id number] [place] [address]- 1162 Aug, [facility] [place] [facility] [address] [id number] [place] [address]250 Aug, [facility] [place] [facility] [address] [id number] [place] [address]- 2729 10 Aug, 2012 [facility] [address] [id number] [place] [address]- 6589 Aug, [facility] [place] [facility] [address] [id number] [place] [address]- 7801 Aug, [facility] [address] [id number] [place] [address]- 3129 Aug, [facility] [place] [facility] [address] [id number] [place] [address]- 2511 Jul, [facility] [address] [id number] [place] [address]- 9851 Jul, [facility] [address] [id number] [place] [address]- 9723 12 Jun, 2012 [facility] [address] [id number] [place] [address]- 4520 Jun, [facility] [address] [id number] [place] [address]- 2136 Jun, [facility] [address] [id number] [place] [address]- 7469 08 Jun, 2012 [facility] [address] [facility] [id number] [place] [address]- 3495 07 Jun, 2012 [facility] [place] [facility] [address] [id number] [place] [address]- 8954 Jun, [facility] [place] [facility] [address] [id number] [place] [address]- 6446 Jun, [facility] [place] [facility] [address] [id number] [place] [address]- 1255 May, [facility] [place] [facility] [address] [id number] [place] [address]- 6205 May, [facility] [place] [facility] [address] [id number] [place] [address]- 8520 May, [facility] [place] [address] [facility] [id number] [address]- 4652 May, [facility] [place] [address] [facility] [id number] [address]- 4796 Mar, [facility] [place] [address] [facility] [id number], [place] [address]- 3146 Mar, [facility] [place] [address] [facility] [id number][place] [address]- 7426 Jan, IMMUNIZATIONS No Known Immunizations SOCIAL HISTORY Never Assessed REASON FOR VISIT oxycodone 10/10 PLAN OF CARE VITAL SIGNS MEDICATIONS Medication Instructions Dosage Frequency Start Date End Date Duration Status Oxycodone-Acetaminophen 10-325 MG Orally 4 times a day 1 tablet as needed 6h September, 28 days Active RESULTS No Results [...] High blood sugar 2016 Hospitalization History DKA, vomitting-[facility] 03/05/17 Hospitalization History hospital stay at [facility] for stomach issues 2016
--- OUTSIDE RECORDS SUMMARY | 2018-01-27 19:52 | XMS REPORT ---
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 Name Role Phone CHRISTINE BARTLETT Unavailable PROBLEMS Type Condition ICD9-CM Code [id number] Code Onset Dates Condition Status SNOMED Code Problem Primary insomnia F51.01 Active 2347861 Problem Reactive depression F32.9 Active 79315119 Problem Asthma exacerbation J45.901 Active 417594001 Problem Irritable bowel syndrome with constipation K58.1 Active 237624714 Problem Back pain M54.9 Active 119747844 Problem Tobacco dependency F17.200 Active 45979633 Problem Low TSH level R94.6 Active 173119772 Problem PTSD (post-traumatic stress disorder) F43.10 Active 09281222 Problem Diabetic polyneuropathy associated with type 2 diabetes mellitus E11.42 Active 38992210 Problem Annual physical exam Z00.00 Active 096124798 Problem Migraine without aura and without status migrainosus, not intractable G43.009 Active 050297600 Problem Gastroparesis K31.84 Active 893135161 Problem 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 [address] [facility] [id number] [place] [address] 18 Jan, 2018 [facility] [address] [id number] [place] [address] Jan, [facility] [id number] [place] [address] 55411- 8923 Jan, [facility] [address] 9[address]70- 6685 Dec, LLQ pain R10.32 [facility] [address] 04503- 7582 Dec, Other dorsalgia M54.89 [facility] [address] 37302- 8317 Dec, Neuropathy G62.9 [place] [address] 71149- 1850 Dec, [facility] [address] 46989- 5968 Nov, Irritable bowel syndrome with constipation K58.1 ; Uncomplicated asthma, unspecified asthma severity J45.909 and Type 2 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 [facility] [id number] [place] [address] [id number] Nov, Dental examination Z01.20 [place] [id number] [place] [address] 98609- 7419 Nov, Other dorsalgia M54.89 [place] [id number] [place] [address] 89106- 3400 Nov, LLQ pain R10.32 ; Low TSH level R94.6 and Gastroparesis K31.84 [facility] [id number] [place] [address] 45712- 5696 Nov, Anorexia R63.0 [facility] [address] 71923- 4587 Nov, Asthma exacerbation J45.901 [place] [address] 83072- 1027 Oct, PTSD (post-traumatic stress disorder) F43.10 [place] [id number] [place] [address] 45194- 8356 Oct, [place] [address] [place] 512862 254 Oct, PTSD (post-traumatic stress disorder) F43.10 and Tobacco dependency F17.200 [place] [address] 512862 2546 Oct, [place] [address] 77383 1728 Oct, Other dorsalgia M54.89 [place] [address] 043 Oct, Anorexia R63.0 [place] [address] 02819 1779 September, PTSD (post-traumatic stress disorder) F43.10 [place] [address] 53665 8210 September, Low TSH level R94.6 [place] [address] 34963 7779 September, Other dorsalgia M54.89 [place] [address] 49477 4256 September, Annual physical exam Z00.00 and Migraine without aura and without status migrainosus, not intractable G43.009 [place] [address] 97895- 6852 September, Abnormal TSH R94.6 and Dysfunction of left eustachian tube H69.82 [place] [address] 81517- 0396 Aug, [facility] [address] 37457- 7276 Aug, Anorexia R63.0 [place] [id number] [place] [id number] Aug, Dental examination Z01.20 and Xerostomia K11.7 [facility] [id number] [place] [address] 49465- 0999 Aug, Neuropathy G62.9 [facility] [id number] [place] [address] 94897- 9006 Aug, [facility] [address] 88306 5077 Aug, Other dorsalgia M54.89 [place] [address] 74838- 6560 Aug, Type 2 diabetes mellitus with diabetic autonomic (poly) 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 ; Diabetic polyneuropathy associated with type 2 diabetes mellitus E11.42 ; Bronchitis J40 ; Gastroparesis K31.84 and Reactive depression F32.9 [facility] [id number] [place] [address] 97714- 4681 Aug, PTSD (post-traumatic stress disorder) F43.10 [facility] [id number] [place] [address] 00386- 2543 Aug, Other dorsalgia M54.89 and Anorexia R63.0 [facility] [id number] [place] [address] 94483- 7218 Jul, [facility] [id number] [place] [address] 52700- 7431 Jul, Other dorsalgia M54.89 [facility] [id number] [place] [address] 51621- 4891 Jul, [facility] [address] [place] 512867- 1882 Jul, [facility] [id number] [place] [address] 88127- 2698 Jul, PTSD (post-traumatic stress disorder) F43.10 [place] [id number] [place] [address] 15810 2546 Jul, [facility] [id number] [place] [address] 43149 2546 Jul, [facility] [id number] [place] [address] 61099 2546 Jul, [facility] [address] 18391 2546 Jul, Anorexia R63.0 [facility] [id number] [place] [address] 26209 2546 Jun, [facility] [id number] [place] [address] 07448 2546 22 Jun, 2017 Vaginal discharge N89.8 ; Visit for gynecologic examination Z01.419 and Pelvic pressure in female R10.2 [facility] [id number] [place] [address] 37877 2546 Jun, [facility] [id number] [place] [address] 48395 2546 Jun, Other dorsalgia M54.89 [facility] [id number] [place] [address] 97545 2546 16 Jun, 2017 [facility] [id number] [place] [address] 26234 2546 Jun, [facility] [id number] [place] [address] 56696 2546 Jun, [facility] [id number] [place] [address] 31937 2546 May, Back pain M54.9 [facility] [id number] [place] [address] 45650 2546 May, Anorexia R63.0 [facility] [id number] [place] [address] 13966 2546 May, Other dorsalgia M54.89 [facility] [id number] [place] [address] 35680 2546 May, [facility] [address] 27077 2546 May, Bronchitis J40 [facility] [id number] [place] [address] 28557 2546 May, Type 2 diabetes mellitus with diabetic autonomic (poly) 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 ; 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.4 ; Back pain M54.9 and Neuropathy G62.9 [facility] [address] 28089- 3336 May, Left breast mass N63.20 [facility] [id number] [place] [address] 98336- 9266 May, [facility] [address] 65080- 0926 Apr, Other dorsalgia M54.89 [facility] [id number] [place] [address] 33943 2546 Apr, Anorexia R63.0 [facility] [id number] [place] [address] 35073 2546 Apr, Anorexia R63.0 [facility] [id number] [place] [address] 09569 2546 Apr, Mass of left breast N63.20 [facility] [id number] [place] [address] 41846 2546 Apr, [facility] [id number] [place] [address] 70903- 9066 Apr, [facility] [id number] [place] [address] 83182- 1873 14 Apr, 2017 Diarrhea of presumed infectious origin A09 [facility] [id number] [place] [address] 18825- 7191 Apr, Encounter for immunization Z23 [facility] [id number] [place] [address] 60003- 1397 Apr, [facility] [address] 55866- 4769 Mar, Other dorsalgia M54.89 [facility] [address] 13125- 9916 Mar, [facility] [address] 82699- 9897 Mar, [facility] [address] 77305- 3018 Mar, Anorexia R63.0 [facility] [address] 93389- 6737 Mar, [facility] [address] 50861- 7905 Mar, Other dorsalgia M54.89 [facility] [id number] [place] [address] 65757- 0451 Mar, [facility] [id number] [place] [address] 00798- 7772 Mar, Encounter for immunization Z23 [facility] [id number] [place] [address] 25652- 8987 Feb, Anorexia R63.0 [facility] [id number] [place] [address] 35488- 6550 Feb, Diabetes E11.9 [facility] [id number] [place] [address] 63046- 3508 Feb, Back pain M54.9 and Diabetes E11.9 [facility] [id number] [place] [address] 55396- 8237 Feb, Diabetes E11.9 [facility] [address] 92619- 2787 Feb, Neuropathy G62.9 [facility] [id number] [place] [address] 11898- 7263 Feb, Encounter for immunization Z23 ; Epigastric pain R10.13 ; Weight loss, abnormal R63.4 and Neuropathy G62.9 [facility] [id number] [place] [address] [id number] Feb, [facility] [address] 94293- 0796 Feb, [facility] [address] 42044- 0856 Feb, Intractable vomiting with nausea, unspecified vomiting type R11.2 [facility] [address] 83543 -8799 Feb, Chronic nausea R11.0 [facility] [address] 36433- 0608 Feb, Other dorsalgia M54.89 [facility] [address] 22903- 0241 Jan, [facility] [address] 22884- 0364 Jan, [facility] [id number] [place] [address] 73647- 2620 Jan, [facility] [address] 32880- 2477 Jan, [facility] [address] 38611- 1241 Jan, Asthma exacerbation J45.901 ; Bronchitis J40 and Neuropathy G62.9 [facility] [id number] [place] [address] 31801- 9192 Jan, Anorexia R63.0 [facility] [address] 86289- 7809 Jan, Other dorsalgia M54.89 [facility] [address] [place] [address] 68160- 1925 Dec, [facility] [id number] [place] [address] 51291- 8996 Dec, [facility] [id number] [place] [address] 90250- 5216 Dec, Anorexia R63.0 [facility] [id number] [place] [address] 62383- 3266 Dec, Primary insomnia F51.01 [facility] [id number] [place] [address] 31900- 7996 Dec, Other dorsalgia M54.89 [facility] [id number] [place] [address] 75899- 6476 Dec, [facility] [id number] [place] [address] 46152- 7997 Nov, [facility] [id number] [place] [address] 37573- 1686 Nov, [facility] [id number] [place] [address] 22014- 9093 Nov, [facility] [id number] [place] [address] 90235- 0396 Nov, History of colon polyps Z86.010 [facility] [id number] [place] [address] 52807- 2000 Nov, Weight loss R63.4 ; Nausea and vomiting, intractability of vomiting not specified, unspecified vomiting type R11.2 and Abnormal LFTs R79.89 [facility] [id number] [place] [address] 17374- 9486 Nov, [facility] [id number] [place] [address] 67588- 7319 Nov, Neuropathy G62.9 and Pain in right knee M25.561 [facility] [address] [place] [address] 81081- 5888 12 Nov, 2016 Back pain M54.9 [facility] [id number] [place] [address] 62383- 5424 10 Nov, 2016 [facility] [id number] [place] [address] 28801- 7980 08 Nov, 2016 Bronchitis J40 [facility] [id number] [place] [address] 57655- 4929 Nov, Weight loss R63.4 [facility] [id number] [place] [address] 38359- 0283 Oct, Back pain M54.9 [facility] [id number] [place] [address] 32832- 9480 16 Oct, 2016 [facility] [id number] [place] [address] 17899- 4664 Oct, Back pain M54.9 [facility] [id number] [place] [address] 50833- 7600 Oct, Type 2 diabetes mellitus without complications E11.9 and Bronchitis J40 [facility] [id number] [place] [address] 71306- 3584 Oct, [facility] [id number] [place] [address] 47127- 8243 Oct, [facility] [id number] [place] [address] 46944- 5368 September, Gastroparesis K31.84 ; Type 2 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 and Neuropathy G62.9 [facility] [id number] [place] [address] 22279- 6634 September, Other dorsalgia M54.89 [facility] [id number] [place] [address] 84733- 7988 September, [facility] [id number] [place] [address] 14544- 8287 September, [facility] [id number] [place] [address] 41321- 1840 Aug, Gastroparesis K31.84 and Radicular leg pain M54.10 [facility] [address] 63846- 8700 Aug, Anorexia R63.0 [facility] [address] 39443- 1132 Aug, Bronchitis J40 [facility] [address] 49285- 6421 Aug, Back pain M54.9 [facility] [id number] [place] [address] 35863- 9742 Aug, Routine gynecological examination Z01.419 ; Routine screening for STI (sexually transmitted infection) Z11.3 and Yeast infection of the vagina B37.3 [facility] [id number] [place] [address] 21263- 5586 Jul, Other dorsalgia M54.89 [facility] [id number] [place] [address] 70054- 8158 Jul, Diabetes E11.9 and Gastroparesis K31.84 [facility] [id number] [place] [address] 18436- 3713 Jun, [facility] [id number] [place] [address] 04525- 0678 Jun, Back pain M54.9 [facility] [id number] [place] [address] 50654- 5439 Jun, Neuropathy G62.9 [facility] [address] [place] [address] [id number] Jun, Encounter for dental examination Z01.20 [facility] [address] 88306- 2549 Jun, Gastroparesis 536.3 and Anorexia R63.0 [facility] [address] 40392 2546 May, Other dorsalgia M54.89 [facility] [address] [address] May, Periumbilical abdominal pain R10.33 ; Weight loss R63.4 and Gastroparesis K31.84 [facility] [address] [address] May, Back pain M54.9 [facility] [address] [address] Apr, Anorexia R63.0 [facility] [address] [address] Apr, Anorexia R63.0 [facility] [address] [address] Apr, Back pain M54.9 [facility] [address] [address] Apr, Back pain M54.9 [facility] [address] [address] Apr, [facility] [address] [address] Apr, Bronchitis J40 and Neuropathy G62.9 [facility] [address] [address] Apr, Neuropathy G62.9 [facility] [address] [address] Apr, [facility] [address] [address] Apr, Back pain M54.9 [facility] [address] [place] [address] Mar, Type 2 diabetes mellitus with diabetic autonomic (poly) 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 [facility] [address] [address] Mar, Type 2 diabetes mellitus without complications E11.9 [facility] [address] [place] [id number] [place] [address] Mar, Neuropathy G62.9 [facility] [address] [address] Mar, [facility] [address] [address] Mar, Breast cancer screening Z12.39 [facility] [address] [address] Mar, Other dorsalgia M54.89 [facility] [address] [address] Feb, [facility] [address] [address] Jan, Neuropathy G62.9 ; Type 2 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 ; Uncomplicated asthma, unspecified asthma severity J45.909 and Encounter for immunization Z23 [facility] [address] [place] [id number] [place] [address] Jan, [facility] [address] [place] [id number] [place] [address] Jan, [facility] [address] [place] [id number] [place] [address] Dec, [facility] [address] [place] [id number] [place] [address] Dec, [facility] [address] [place] [id number] [place] [address] Nov, [facility] [address] [address] Nov, Back pain M54.9 [facility] [address] [id number] [place] [address] Nov, Neuropathy G62.9 ; Mixed hyperlipidemia E78.2 ; Type 2 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 and 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.4 [facility] [address] [id number] [place] [address] Oct, [facility] [address] [place] [id number] [place] [address] Oct, Other dorsalgia M54.89 [place] [address] [place] [id number] [place] [address] September, Primary insomnia F51.01 [facility] [id number] [place] [address]25- 5792 September, [facility] [id number] [place] [address] 33784- 6686 Aug, Other dorsalgia M54.89 [facility] [id number] [place] [address] 27894- 2865 Jul, [facility] [id number] [place] [address] 82956- 9168 Jul, Other dorsalgia M54.89 [facility] [id number] [place] [address] 16058- 7997 Jul, Diabetes E11.9 ; Back pain M54.9 ; Neuropathy G62.9 and Gastroparesis K31.84 [facility] [id number] [place] [address] 97550- 7028 Jun, [facility] [id number] [place] [address] 03996- 1745 Jun, Other dorsalgia M54.89 [facility] [id number] [place] [address] 31128- 8533 May, [facility] [id number] [place] [address] May, Radicular leg pain M54.10 and Other dorsalgia M54.89 [facility] [id number] [place] [address] 39337- 5415 Apr, [facility] [id number] [place] [address] 76026- 5793 Mar, [facility] [id number] [place] [address] 71671- 0260 Mar, [facility] [id number] [place] [address] 41167- 1294 Mar, Radicular leg pain M54.10 [facility] [id number] [place] [address] 79694- 8313 Feb, [facility] [id number] [place] [address] 46438- 6050 Feb, [facility] [id number] [place] [address] 70355- 3302 Feb, [facility] [id number] [place] [address] 88110- 8991 Jan, [facility] [id number] [place] [address] 36779- 1735 Jan, IBS (irritable bowel syndrome) 564.1 [facility] [id number] [place] [address] 15027- 9528 Jan, [facility] [id number] [place] [address] 29582- 5108 Jan, [facility] [id number] [place] [address] 40581- 3836 Jan, Diabetes mellitus without mention of complication, type II or unspecified type, not stated as uncontrolled 250.00 ; Gastroparesis 536.3 and Hypoacusis 389.9 [facility] [id number] [place] [address] 0496 Jan, [facility] [id number] [place] [address]- 2033 Jan, [facility] [id number] [place] [address]- 1589 Dec, [facility] [id number] [place] [address]- 9377 Dec, [facility] [address] [place] [address]- 6276 Dec, [facility] [id number] [place] [address]- 2008 Dec, Back pain 724.5 and Gastroparesis 536.3 [facility] [id number] [place] [address] Nov, [facility] [id number] [place] [id number] Nov, Dental examination V72.2 [facility] [address] [place] [address]- 2737 Nov, [facility] [address] [place] [address]- 7167 Nov, [facility] [id number] [place] [address]- 7764 Nov, Depressive disorder, not elsewhere classified 311 and No condition on [place] II V71.09 [facility] [id number] [place] [address]- 1211 Nov, Diabetes 250.00 and Symptomatic menopausal or female climacteric states 627.2 [facility] [id number] [place] [address]- 1225 Oct, [facility] [id number] [place] [address]- 2205 Oct, Lumbar strain 847.2 [facility] [id number] [place] [address]- 6788 Oct, Gastroparesis 536.3 and Unspecified myalgia and myositis 729.1 [facility] [address] [facility] [id number] [place] [address]- 9835 14 Aug, 2014 [facility] [address] [place] [address]- 7953 Aug, [facility] [address] [facility] [id number] [place] [address]- 4910 Jul, [facility] [address] [place] [address]- 6300 Jul, [facility] [address] [place] [address]- 3022 Jul, [facility] [id number] [place] [address]- 6681 Jul, [facility] [id number] [place] [address]- 2609 Jul, [facility] [id number] [place] [address]- 9117 Jun, [facility] [id number] [place] [address]- 5430 Jun, [facility] [id number] [place] [address]- 3600 Jun, [facility] [id number] [place] [address]- 9881 May, [facility] [id number] [place] [address]- 5180 May, [facility] [id number] [place] [address]- 6876 Mar, [facility] [address] [place] [address]- 0719 Mar, [facility] [place] [facility] [address] [id number] [place] [address]- 5157 Mar, [facility] [place] [facility] [address] [id number] [place] [address]- 1270 Mar, [facility] [place] [facility] [address] [id number] [place] [address]- 2653 Mar, [facility] [place] [facility] [address] [id number] [place] [address]- 5558 Mar, [facility] [place] [facility] [address] [id number] [place] [address]- 0647 Feb, [facility] [place] [facility] [address] [id number] [place] [address]- 2138 Feb, [facility] [place] [facility] [address] [id number] [place] [address]- 5480 Nov, [facility] [place] [facility] [address] [id number] [place] [address]- 5159 Nov, [facility] [place] [facility] [address] [id number] [place] [address]- 2683 Nov, [facility] [place] [facility] [address] [id number] [place] [address]- 2410 Oct, [facility] [place] [facility] [address] [id number] [place] [address]- 5932 September, [facility] [place] [facility] [address] [id number] [place] [address]- 0592 Aug, [facility] [place] [facility] [address] [id number] [place] [address]- 1219 15 Aug, 2012 [facility] [place] [facility] [address] [id number] [place] [address]- 3740 Aug, [facility] [place] [facility] [address] [id number] [place] [address]- 8331 Aug, [facility] [place] [facility] [address] [id number] [place] [address]- 5919 10 Aug, 2012 [facility] [address] [id number] [place] [address]- 2285 Aug, [facility] [place] [facility] [address] [id number] [place] [address]- 7286 Aug, [facility] [address] [id number] [place] [address]- 8687 Aug, [facility] [place] [facility] [address] [id number] [place] [address]- 1842 Jul, [facility] [address] [id number] [place] [address]- 5731 Jul, [facility] [place] [facility] [address] [id number] [place] [address]- 1955 Jun, [facility] [address] [id number] [place] [address]- 6935 Jun, [facility] [address] [id number] [place] [address]- 0523 Jun, [facility] [address] [id number] [place] [address]- 7410 08 Jun, 2012 [facility] [address] [id number] [place] [address]- 4057 Jun, [facility] [place] [facility] [address] [id number] [place] [address]- 8794 Jun, [facility] [place] [facility] [address] [id number] [place] [address]- 9512 Jun, [facility] [place] [facility] [address] [id number] [place] [address]- 0236 May, [facility] [place] [facility] [address] [id number] [place] [address]- 2546 May, [facility] [place] [facility] [address] [id number] [place] [address]- 0822 May, [facility] [address] [facility] [id number] [place] [address]- 9287 May, [facility] [address] [facility] [id number] [place] [address]- 7770 Mar, [facility] [address] [facility] [id number] [place] [address]- 4389 Mar, [facility] [address] [facility] [id number] [place] [address]- 8542 Jan, IMMUNIZATIONS No Known Immunizations SOCIAL HISTORY Never Assessed REASON FOR VISIT defer lab PLAN OF CARE VITAL SIGNS MEDICATIONS Unknown Medications RESULTS No Results PROCEDURES No Known procedures INSTRUCTIONS MEDICATIONS ADMINISTERED No Known Medications MEDICAL (GENERAL) HISTORY Type Description Date Medical History umbilical hernia Medical History pulmonary emboli Medical History asthma Medical History depression Medical History anxiety Medical History diabetes type II Medical History bowel obstruction 2009 Medical History HSV1 Surgical History bowel obstruction 2008 Surgical History umblical hernia x 8 Surgical History appendectomy 1986 Surgical History hysterectomy 2006 Surgical History EGD 2016 Hospitalization History Nervous breakdown 2008 Hospitalization History pulmonary emboli and pneumonia 2014 Hospitalization History High blood sugar 2016 Hospitalization History DKA, vomitting-[facility] 03/05/17 Hospitalization History hospital stay at [facility] for stomach issues 2016
--- OUTSIDE RECORDS SUMMARY | 2018-01-27 19:52 | XMS REPORT ---
Author Author CHRISTINE BARTLETT Organization [facility] Address [address] [place] [address] Care Team Providers Care Director Apparel Name Role Phone CHRISTINE BARTLETT Unavailable PROBLEMS Type Condition ICD9-CM Code [id number] Code Onset Dates Condition Status SNOMED Code Problem Primary insomnia F51.01 Active 0877044 Problem Reactive depression F32.9 Active 11970069 Problem Asthma exacerbation J45.901 Active 965941838 Problem Irritable bowel syndrome with constipation K58.1 Active 176577222 Problem Back pain M54.9 Active 182989026 Problem Tobacco dependency F17.200 Active 66460450 Problem Low TSH level R94.6 Active 689972949 Problem PTSD (post-traumatic stress disorder) F43.10 Active 49607698 Problem Diabetic polyneuropathy associated with type 2 diabetes mellitus E11.42 Active 67041212 Problem Annual physical exam Z00.00 Active 000647673 Problem Migraine without aura and without status migrainosus, not intractable G43.009 Active 688472644 Problem Gastroparesis K31.84 Active 428598989 Problem 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 Active 859185968 Problem Neuropathy G62.9 Active 828553324 Problem Diabetes E11.9 Active 11162203 Problem Uncomplicated asthma, unspecified asthma severity J45.909 Active 434230126 Problem Anorexia R63.0 Active 25504815 Problem Mixed hyperlipidemia E78.2 Active 562748207 Problem Weight loss R63.4 Active 645984275 Problem Type 2 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 Active 83910988 Problem History of colon polyps Z86.010 Active 576390696 ALLERGIES Substance Reaction Event Type Date Status Coumadin vomitied blood Drug Allergy September, Active Toradol swells, itch from inside out Drug Allergy September, Active Nsaids (non-steroidal Anti-inflammatory Drug) triggers asthma, can't breathe, swells form inside out. Non Drug Allergy September, Active ENCOUNTERS Encounter Location Date Diagnosis [place] [id number] [place] [address] 88734- 5927 Jan, [facility] [address] 76721- 5305 Jan, [place] [address] 71664- 8248 Jan, [place] [address] 06725- 3098 Dec, LLQ pain R10.32 [place] [address] 78237- 4405 Dec, Other dorsalgia M54.89 [place] [address] 54096- 0891 Dec, Neuropathy G62.9 [place] [address] 05742- 0516 Dec, [place] [address] 27641- 9377 Nov, Irritable bowel syndrome with constipation K58.1 ; Uncomplicated asthma, unspecified asthma severity J45.909 and Type 2 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 [facility] [id number] [place] [address] [id number] Nov, Dental examination Z01.20 [place] [address] 32044- 0790 Nov, Other dorsalgia M54.89 [place] [address] 27080- 4683 Nov, LLQ pain R10.32 ; Low TSH level R94.6 and Gastroparesis K31.84 [place] [address] 60424- 5926 Nov, Anorexia R63.0 [place] [address] 46689- 8400 06 Nov, 2017 Asthma exacerbation J45.901 [place] [address] [place] 781906- 5325 27 Oct, 2017 PTSD (post-traumatic stress disorder) F43.10 [place] [address] 91389- 5814 26 Oct, 2017 [place] [address] 01453 4339 19 Oct, 2017 PTSD (post-traumatic stress disorder) F43.10 and Tobacco dependency F17.200 [place] [address] 802471- 5565 Oct, [place] [address] 31470- 8439 Oct, Other dorsalgia M54.89 [place] [address] 25096- 6530 Oct, Anorexia R63.0 [place] [address] 09132- 1622 September, PTSD (post-traumatic stress disorder) F43.10 [place] [address] 27638- 8902 September, Low TSH level R94.6 [place] [address] 01997- 1452 September, Other dorsalgia M54.89 [place] [address] 95965- 6937 September, Annual physical exam Z00.00 and Migraine without aura and without status migrainosus, not intractable G43.009 [place] [address] 36446- 1793 September, Abnormal TSH R94.6 and Dysfunction of left eustachian tube H69.82 [place] [address] [address] 9567 Aug, [facility] [id number] [place] [address] 2677 Aug, Anorexia R63.0 [facility] [address] [id number] Aug, Dental examination Z01.20 and Xerostomia K11.7 [facility] [id number] [place] [address] 32485- 3855 Aug, Neuropathy G62.9 [facility] [address] 781902 6051 Aug, [facility] [id number] [place] [address] 59399 4943 Aug, Other dorsalgia M54.89 [facility] [id number] [place] [address] 824384- 6999 Aug, Type 2 diabetes mellitus with diabetic autonomic (poly) 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 ; Diabetic polyneuropathy associated with type 2 diabetes mellitus E11.42 ; Bronchitis J40 ; Gastroparesis K31.84 and Reactive depression F32.9 [facility] [id number] [place] [address] 70786- 1154 Aug, PTSD (post-traumatic stress disorder) F43.10 [facility] [address] [place] [address] 42936- 4085 Aug, Other dorsalgia M54.89 and Anorexia R63.0 [facility] [id number] [place] [address] 86605- 3398 Jul, [facility] [id number] [place] [id number]- 447 Jul, Other dorsalgia M54.89 [facility] [id number] [place] [address] 63611- 7211 Jul, [facility] [id number] [place] [address] 57471- 2834 Jul, [facility] [id number] [place] [address] 22624- 6446 Jul, PTSD (post-traumatic stress disorder) F43.10 [facility] [id number] [place] [address] 47696- 7056 Jul, [facility] [address] 79750- 6536 Jul, [facility] [id number] [place] [address] 96079- 9298 Jul, [facility] [id number] [place] [address] 17000- 0334 Jul, Anorexia R63.0 [facility] [id number] [place] [address] 07875- 7246 Jun, [facility] [id number] [place] [address] 47560- 8122 Jun, Vaginal discharge N89.8 ; Visit for gynecologic examination Z01.419 and Pelvic pressure in female R10.2 [facility] [id number] [place] [address] 32337- 2541 Jun, [facility] [id number] [place] [address] 62408- 9401 Jun, Other dorsalgia M54.89 [facility] [id number] [place] [address] 56060- 6050 16 Jun, 2017 [facility] [id number] [place] [address] 26766- 7706 07 Jun, 2017 [facility] [id number] [place] [address] 04353- 3913 Jun, [facility] [id number] [place] [address] 85321- 8565 May, Back pain M54.9 [facility] [id number] [place] [address] 61477 2546 May, Anorexia R63.0 [facility] [address] 49539 2546 May, Other dorsalgia M54.89 [facility] [address] 80954 2546 May, [facility] [address] 71075 2546 May, Bronchitis J40 [facility] [address] 23808- 6784 May, Type 2 diabetes mellitus with diabetic autonomic (poly) 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 ; 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 ; Back pain M54.9 and Neuropathy G62.9 [facility] [address] 38975- 1060 May, Left breast mass N63.20 [facility] [address] 89662- 8812 May, [facility] [address] 42728- 1850 Apr, Other dorsalgia M54.89 [facility] [address] 03949 2546 Apr, Anorexia R63.0 [facility] [id number] [place] [address] 99675 2546 Apr, Anorexia R63.0 [facility] [id number] [place] [address] 50884 2546 Apr, Mass of left breast N63.20 [facility] [id number] [place] [address] 40311 2546 Apr, [facility] [id number] [place] [address] 22932- 4988 Apr, [facility] [address] [place] [address] 31870- 9538 Apr, Diarrhea of presumed infectious origin A09 [facility] [id number] [place] [address] 68721- 9636 Apr, Encounter for immunization Z23 [facility] [id number] [place] [address] 79015 2546 Apr, [facility] [id number] [place] [address] 32048- 3921 Mar, Other dorsalgia M54.89 [facility] [id number] [place] [address] 59213- 0736 Mar, [facility] [id number] [place] [address] 21340- 3873 Mar, [facility] [id number] [place] [address] 05684- 3618 Mar, Anorexia R63.0 [facility] [id number] [place] [address] 13793- 6300 Mar, [facility] [id number] [place] [address] 21239- 1191 Mar, Other dorsalgia M54.89 [facility] [id number] [place] [address] 30147- 0586 Mar, [facility] [id number] [place] [address] 64752- 2541 Mar, Encounter for immunization Z23 [facility] [id number] [place] [address] 26597- 4203 Feb, Anorexia R63.0 [facility] [id number] [place] [address] 07792- 5801 Feb, Diabetes E11.9 [facility] [id number] [place] [address] 62954- 1524 Feb, Back pain M54.9 and Diabetes E11.9 [facility] [id number] [place] [address] 46379- 0093 Feb, Diabetes E11.9 [facility] [address] 22086- 4265 Feb, Neuropathy G62.9 [facility] [address] 33566- 5999 Feb, Encounter for immunization Z23 ; Epigastric pain R10.13 ; Weight loss, abnormal R63.4 and Neuropathy G62.9 [facility] [address] [id number] Feb, [facility] [address] 51882- 3011 Feb, [facility] [address] 17925- 1041 Feb, Intractable vomiting with nausea, unspecified vomiting type R11.2 [facility] [address] 72982 -6763 Feb, Chronic nausea R11.0 [facility] [address] 57555- 9988 Feb, Other dorsalgia M54.89 [facility] [address] 42996- 3216 Jan, [facility] [address] 07666- 3308 Jan, [facility] [id number] [place] [address] 65138- 8601 Jan, [facility] [address] 86842- 1354 Jan, [facility] [id number] [place] [address] 40293- 3407 Jan, Asthma exacerbation J45.901 ; Bronchitis J40 and Neuropathy G62.9 [facility] [address] [place] [address] 09920 2546 06 Jan, 2017 Anorexia R63.0 [facility] [id number] [place] [address] 72436 2546 Jan, Other dorsalgia M54.89 [facility] [id number] [place] [address] 74795 2546 Dec, [facility] [id number] [place] [address] 68493 2546 Dec, [facility] [id number] [place] [address] 76299 2546 Dec, Anorexia R63.0 [facility] [id number] [place] [address] 88040- 8736 Dec, Primary insomnia F51.01 [facility] [id number] [place] [address] 45505 2546 Dec, Other dorsalgia M54.89 [facility] [id number] [place] [address] 78998 2543 Dec, [facility] [id number] [place] [address] 45223 2546 Nov, [facility] [id number] [place] [address] 76578- 3170 Nov, [facility] [id number] [place] [address] 95233 2546 Nov, [facility] [id number] [place] [address] 62143 2547 Nov, History of colon polyps Z86.010 [facility] [address] [place] [address] 64270- 2046 Nov, Weight loss R63.4 ; Nausea and vomiting, intractability of vomiting not specified, unspecified vomiting type R11.2 and Abnormal LFTs R79.89 [facility] [address] [place] [address]- 6116 18 Nov, 2016 [facility] [id number] [place] [address] 40260- 0525 Nov, Neuropathy G62.9 and Pain in right knee M25.561 [facility] [address] [place] [address] 07478- 0881 12 Nov, 2016 Back pain M54.9 [facility] [id number] [place] [address] 30149- 8554 10 Nov, 2016 [facility] [id number] [place] [address] 92507- 5149 08 Nov, 2016 Bronchitis J40 [facility] [id number] [place] [address] 88538- 1346 Nov, Weight loss R63.4 [facility] [id number] [place] [address] 79959- 5365 16 Oct, 2016 Back pain M54.9 [facility] [id number] [place] [address] 18991- 7917 16 Oct, 2016 [facility] [id number] [place] [address] 85689- 6915 14 Oct, 2016 Back pain M54.9 [facility] [id number] [place] [address] 67664- 8465 Oct, Type 2 diabetes mellitus without complications E11.9 and Bronchitis J40 [facility] [id number] [place] [address] 35967- 7346 05 Oct, 2016 [facility] [id number] [place] [address] 62387- 2822 Oct, [facility] [id number] [place] [address] 47397- 0041 September, Gastroparesis K31.84 ; Type 2 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 and Neuropathy G62.9 [facility] [id number] [place] [address] 87460- 4417 September, Other dorsalgia M54.89 [facility] [id number] [place] [address] 33976- 2562 September, [facility] [id number] [place] [address] 31408- 2610 September, [facility] [id number] [place] [address] 20729- 6648 Aug, Gastroparesis K31.84 and Radicular leg pain M54.10 [facility] [id number] [place] [address] 95740- 3120 Aug, Anorexia R63.0 [facility] [address] 28055- 5994 Aug, Bronchitis J40 [facility] [address] 97100- 8615 Aug, Back pain M54.9 [facility] [id number] [place] [address] 52741- 4022 Aug, Routine gynecological examination Z01.419 ; Routine screening for STI (sexually transmitted infection) Z11.3 and Yeast infection of the vagina B37.3 [facility] [id number] [place] [address] 65725- 7816 Jul, Other dorsalgia M54.89 [facility] [id number] [place] [address] 32709- 3317 Jul, Diabetes E11.9 and Gastroparesis K31.84 [facility] [id number] [place] [address] 17338- 7863 Jun, [facility] [id number] [place] [address] 43109- 4291 Jun, Back pain M54.9 [facility] [id number] [place] [address] 01408- 4488 Jun, Neuropathy G62.9 [facility] [address] [address] 02 Jun, 2016 Encounter for dental examination Z01.20 [facility] [id number] [place] [address] 65166- 7974 01 Jun, 2016 Gastroparesis 536.3 and Anorexia R63.0 [facility] [address] 18414- 2549 May, Other dorsalgia M54.89 [facility] [address] 18190- 1255 May, Periumbilical abdominal pain R10.33 ; Weight loss R63.4 and Gastroparesis K31.84 [facility] [id number] [place] [address] 79912- 6297 May, Back pain M54.9 [facility] [address] 81450- 0689 Apr, Anorexia R63.0 [facility] [address] 20226 2546 Apr, Anorexia R63.0 [facility] [id number] [place] [address] 87466 2547 Apr, Back pain M54.9 [facility] [address] 39042 2540 Apr, Back pain M54.9 [facility] [id number] [place] [address] 84696 254 Apr, [facility] [address] 57598- 5963 Apr, Bronchitis J40 and Neuropathy G62.9 [facility] [address] 63023- 2958 Apr, Neuropathy G62.9 [facility] [address] [place] [address]- 4562 Apr, [facility] [id number] [place] [address] 62057- 0911 Apr, Back pain M54.9 [facility] [id number] [place] [address] 38969- 9612 Mar, Type 2 diabetes mellitus with diabetic autonomic (poly) 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 [facility] [address] 06344- 2480 Mar, Type 2 diabetes mellitus without complications E11.9 [facility] [id number] [place] [address] 81299- 1396 Mar, Neuropathy G62.9 [facility] [id number] [place] [address] 78600- 3713 Mar, [facility] [address] 88828- 9146 Mar, Breast cancer screening Z12.39 [facility] [id number] [place] [address] 52723- 2458 Mar, Other dorsalgia M54.89 [facility] [address] 35458- 6007 Feb, [facility] [id number] [place] [address] 27904- 9596 Jan, Neuropathy G62.9 ; Type 2 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 ; Uncomplicated asthma, unspecified asthma severity J45.909 and Encounter for immunization Z23 [facility] [id number] [place] [address] 97142- 4883 Jan, [facility] [address] 05366- 9634 Jan, [facility] [id number] [place] [address] 57724- 9283 Dec, [facility] [address] [place] [address]- 4707 Dec, [facility] [id number] [place] [address] 87259- 5083 Nov, [facility] [id number] [place] [address] 69701- 3437 Nov, Back pain M54.9 [facility] [id number] [place] [address] 31026- 2526 Nov, Neuropathy G62.9 ; Mixed hyperlipidemia E78.2 ; Type 2 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 and 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 [facility] [id number] [place] [address] 29414- 1986 Oct, [facility] [id number] [place] [address] 00370- 4199 Oct, Other dorsalgia M54.89 [facility] [id number] [place] [address] 10345- 6585 September, Primary insomnia F51.01 [facility] [id number] [place] [address] 88220- 1739 September, [facility] [id number] [place] [address] [phone]- [phone] Aug, Other dorsalgia M54.89 [facility] [id number] [place] [address] [id number]- [phone] Jul, [facility] [id number] [place] [address] 09062- 0357 Jul, Other dorsalgia M54.89 [facility] [id number] [place] [address] [phone]- 2083 Jul, Diabetes E11.9 ; Back pain M54.9 ; Neuropathy G62.9 and Gastroparesis K31.84 [facility] [id number] [place] [address] [id number]- [phone] Jun, [facility] [address] [facility] [id number] [place] [address] [id number]- 9432 Jun, Other dorsalgia M54.89 [facility] [address] [facility] [id number] [place] [address] [id number]- [phone] May, [facility] [id number] [place] [address] [id number] May, Radicular leg pain M54.10 [address] Other dors[address] M54.89 [facility] [address] [facility] [id number] [place] [address] [id number]- [phone] Apr, [facility] [id number] [place] [address] [id number]- [phone] Mar, [facility] [id number] [place] [address] 48950- [phone] Mar, [facility] [facility] [id number] [place] [address] 44472- 5851 Mar, Radicular leg pain M54.10 [facility] [id number] [place] [address] 11028- 5523 Feb, [facility] [id number] [place] [address] 12527- 8115 Feb, [facility] [id number] [place] [address] 48209- 9082 Feb, [facility] [id number] [place] [address] 22902- 2549 Jan, [facility] [id number] [place] [address] 32667- 2542 Jan, IBS (irritable bowel syndrome) 564.1 [facility] [id number] [place] [address] 75245- 7452 Jan, [facility] [id number] [place] [address] 34801- 2543 Jan, [facility] [address] [address] 7960 08 Jan, 2015 Diabetes mellitus without mention of complication, type II or unspecified type, not stated as uncontrolled 250.00 ; Gastroparesis 536.3 and Hypoacusis 389.9 [facility] [address] [address] 7911 Jan, [facility] [id number] [place] [address] 67862- 7701 Jan, [facility] [id number] [place] [address] 31532- 2319 Dec, [facility] [id number] [place] [address] 51544- 9386 Dec, [facility] [id number] [place] [address] 23157- 5180 Dec, [facility] [id number] [place] [address] 46591- 6284 Dec, Back pain 724.5 and Gastroparesis 536.3 [facility] [id number] [place] [address] 79324- 5739 Nov, [facility] [id number] [place] [address] [id number] Nov, Dental examination V72.2 [facility] [id number] [place] [address] 79117- 6175 Nov, [facility] [id number] [place] [address] 31816- 4081 Nov, [facility] [id number] [place] [address] 21656- 1797 Nov, Depressive disorder, not elsewhere classified 311 and No condition on [place] II V71.09 [facility] [address] [address]67 Nov, Diabetes 250.00 and Symptomatic menopausal or female climacteric states 627.2 [facility] [address] [facility] [id number], [place] [address] 7[address] Oct, [facility] [address], [place] [address] 5032 Oct, Lumbar strain 847.2 [facility] [address] [address] 3488 Oct, Gastroparesis 536.3 and Unspecified myalgia and myositis 729.1 [facility] [address] [facility] [id number], [place] [address] 4943 Aug, [facility] [id number] [place] [address] 70694- 2327 Aug, [facility] [address], [place] [address] 2170 Jul, [facility] [address], [place] [address] 7687 Jul, [facility] [address], [place] [address] 0604 Jul, [facility] [address], [place] [address] 5272 Jul, [facility] [address], [place] [address]- 2206 Jul, [facility] [address], [place] [address] 8079 Jun, [facility] [address] [facility] [id number] 1416 Jun, [facility] [address] [facility] [id number] 6076 Jun, [facility] [id number], [place] [address] 5341 May, [facility] [address], [place] [address]- 1136 May, [facility] [place] [facility] [address] [id number] [place] [address]- 8494 Mar, [facility] [place] [facility] [address] [id number] [place] [address]- 3088 Mar, [facility] [place] [facility] [address] [id number] [place] [address]- 1267 Mar, [facility] [place] [facility] [address] [id number] [place] [address]- 9401 Mar, [facility] [place] [facility] [address] [id number] [place] [address]- 0803 Mar, [facility] [place] [facility] [address] [id number] [place] [address]- 4426 Mar, [facility] [place] [facility] [address] [id number] [place] [address]- 8451 Feb, [facility] [place] [facility] [address] [id number] [place] [address]- 5206 Feb, [facility] [place] [facility] [address] [id number] [place] [address]- 6718 Nov, [facility] [place] [facility] [address] [id number] [place] [address]- 0380 Nov, [facility] [place] [facility] [address] [id number] [place] [address]- 4966 Nov, [facility] [place] [facility] [address] [id number] [place] [address]- 7344 Oct, [facility] [place] [facility] [address] [id number] [place] [address]- 0930 September, [facility] [place] [facility] [address] [id number] [place] [address]- 5239 Aug, [facility] [place] [facility] [address] [id number] [place] [address]- 5738 Aug, [facility] [place] [facility] [address] [id number] [place] [address]- 5546 11 Aug, 2012 [facility] [address] [id number] [place] [address]- 4677 Aug, [facility] [address] [id number] [place] [address]- 3912 10 Aug, 2012 [facility] [address] [id number] [place] [address]- 1303 Aug, [facility] [address] [id number] [place] [address]- 3440 Aug, [facility] [address] [id number] [place] [address]- 1196 Aug, [facility] [address] [facility] [id number] [place] [address]- 7313 Jul, [facility] [address] [id number] [place] [address]- 1627 Jul, [facility] [address] [id number] [place] [address]- 8566 Jun, [facility] [id number] [place] [address]- 5147 Jun, [facility] [address] [facility] [id number] [place] [address]- 7348 Jun, [facility] [address] [id number] [place] [address]- 6948 08 Jun, 2012 [facility] [address] [id number] [place] [address]- 3086 Jun, [facility] [place] [facility] [address] [id number] [place] [address]- 9759 Jun, [facility] [address] [facility] [id number] [place] [address]- 6371 04 Jun, 2012 [facility] [address] [facility] [id number] [place] [address]- 7866 May, [facility] [address] [facility] [id number], [place] [address]- 1915 May, [facility] [address] [facility] [id number], [place] [address]- 2025 May, [facility] [address] [facility] [id number], [place] [address]- 6235 May, [facility] [address], [place] [address]- 9662 Mar, [facility] [address] [facility] [id number], [place] [address]- 6072 Mar, [facility] [id number] 9041 Jan, IMMUNIZATIONS No Known Immunizations SOCIAL HISTORY Never Assessed REASON FOR VISIT Annual physical (female)--Sarah pt is wondering is going through menopause, she has headaches and vaginal pain and she is not sexually active, pt denies any reasons for an std check and is not due for a pap PLAN OF CARE Activity Details Follow Up 4 Weeks, prn Reason:migraines VITAL SIGNS Height 62 in 2017-10-01 Weight 98.8 lbs 2017-10-01 Temperature 99.1 degrees Fahrenheit 2017-10-01 Heart Rate 100 bpm 2017-10-01 Respiratory Rate 20 2017-10-01 BMI 18.07 kg/m2 2017-10-01 Blood pressure systolic 108 mmHg 2017-10-01 Blood pressure diastolic 80 mmHg 2017-10-01 MEDICATIONS Medication Instructions Dosage Frequency Start Date End Date Duration Status Atorvastatin Calcium 40 MG TAKE ONE TABLET BY MOUTH ONCE DAILY (LAST REFILL MUST HAVE LABS) 30 Active Lyrica 150 MG Orally Twice a day 1 capsule 12h 30 days Active Tizanidine HCl 4 MG Orally 2 times a day 1 tablet 12h 30 Active Vitamin D-3 1000 UNIT Orally Once a day 2 capsule 24h Active Comfort Lancets - as directed 8h 30 Mar, 2016 Active MiraLax - Orally Once a day as needed 1 packet mixed with 8 ounces of fluid Active Humalog KwikPen 100 INJECT 5 UNITS SUB-Q THREE TIMES DAILY BOFORE MEALS Active Xarelto 20 mg 1 Tablet by Oral route 1 time per day Jul, Active Quad Cane - as directed 24h Apr, Active Marinol 5 mg Orally Twice a day 1 capsule before lunch and supper 12h 28 days Active Microlet Lancets 0 USE DIRECTED THREE TIMES DAILY 30 Active Ayden Contour Next Test - subcutaneously 3 times a day test blood sugar 8h Active ProAir HFA 108 INHALE 2 PUFFS BY MOUTH FOUR TIMES DAILY NEEDED 25 Active Multiple Vitamins-Iron - Orally Once a day 1 tablet 24h Active SudoGest 60 mg Orally every 6 hrs 1 tablet as needed 6h September, 07 days Active Zofran ODT 8 MG DISSOLVE ONE TABLET ON THE TONGUE EVERY 6 HOURS 5 Active Cymbalta 60 MG Orally every morning 2 capsules Active Lantus SoloStar 100 8 units 12h Active Calcium 600-200 MG-UNIT Active Omeprazole 40 mg 1 CAP(S) ONCE A DAY ORALLY 30 DAYS 30 Active Promethazine HCl 25 MG Orally every 6 hours 1 tablet 6h 30 Active Cyclobenzaprine HCl 10 TAKE 1 TABLET BY MOUTH THREE TIMES DAILY 30 Active Maxalt 5 mg Orally daily as needed Take 1 tablet when headache begins; repeat in 2 hours if not better. Not to take more than 30 mg daily September, 30 days Active Oxycodone-Acetaminophen 10-325 MG Orally 4 times a day 1 tablet as needed 6h Aug, 28 days Active Cyanocobalamin 1000 MCG Orally Once a day 1 tablet 24h Active RESULTS No Results PROCEDURES Procedure Date Ordered Result Body [facility] October 01, 2017 VENIPUNCT, ROUTINE* October 01, 2017 [facility] VISIT ESTABLISHED PATIENT October 01, 2017 ANNUAL WELLNESS VST; PPS SUBSQT VST October 01, 2017 INSTRUCTIONS MEDICATIONS ADMINISTERED No Known Medications [...] vomitting-[facility] 03/05/17 Hospitalization History hospital stay at [facility] for stomach issues 2016
--- OUTSIDE RECORDS SUMMARY | 2018-01-27 19:53 | XMS REPORT ---
Author Author HORACE HIGGINS [facility] Address [address] [place] [address] Care Team Providers Care Tire Service Supervisor Name Role Phone HORACE HIGGINS Unavailable PROBLEMS Type Condition ICD9-CM Code DED82-GC Code Onset Dates Condition Status SNOMED Code Problem Primary insomnia F51.01 Active 6611236 Problem Reactive depression F32.9 Active 14468287 Problem Asthma exacerbation J45.901 Active 569757313 Problem Irritable bowel syndrome with constipation K58.1 Active 999181747 Problem Back pain M54.9 Active 712127836 Problem Tobacco dependency F17.200 Active 52151894 Problem Low TSH level R94.6 Active 397143209 Problem PTSD (post-traumatic stress disorder) F43.10 Active 93704155 Problem Diabetic polyneuropathy associated with type 2 diabetes mellitus E11.42 Active 29234472 Problem Annual physical exam Z00.00 Active 836701549 Problem Migraine without aura and without status migrainosus, not intractable G43.009 Active 629425037 Problem Gastroparesis K31.84 Active 301013814 Problem 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 Active 223195113 Problem Neuropathy G62.9 Active 647482206 Problem Diabetes E11.9 Active 42048018 Problem Uncomplicated asthma, unspecified asthma severity J45.909 Active 407180993 Problem Anorexia R63.0 Active 91499393 Problem Mixed hyperlipidemia E78.2 Active 373832915 Problem Weight loss R63.4 Active 301571263 Problem Type 2 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 Active 75371531 Problem History of colon polyps Z86.010 Active 080435324 ALLERGIES Substance Reaction Event Type Date Status Coumadin vomitied blood Drug Allergy September, Active Toradol swells, itch from inside out Drug Allergy September, Active Nsaids (non-steroidal Anti-inflammatory Drug) triggers asthma, can't breathe, swells form inside out. Non Drug Allergy September, Active ENCOUNTERS Encounter Location Date Diagnosis [facility] [id number] [place] [address] 61544- 4644 Jan, [facility] [id number] [place] [address] 10308- 6720 Jan, [facility] [id number] [place] [address] 30182- 9263 Jan, [facility] [id number] [place] [address] 05681- 6312 Dec, Neuropathy G62.9 [place] [address] 69323- 6736 Dec, [facility] [id number] [place] [address] 06912- 6324 Nov, Irritable bowel syndrome with constipation K58.1 ; Uncomplicated asthma, unspecified asthma severity J45.909 and Type 2 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 [facility] [id number] [place] [address] [id number] Nov, Dental examination Z01.20 [facility] [id number] [place] [address] 99714- 2058 Nov, Other dorsalgia M54.89 [facility] [id number] [place] [address] 45525- 6885 Nov, LLQ pain R10.32 ; Low TSH level R94.6 and Gastroparesis K31.84 [facility] [id number] [place] [address] 83034- 3212 Nov, Anorexia R63.0 [facility] [address] 01533- 9232 Nov, Asthma exacerbation J45.901 [facility] [id number] [place] [address] 53774- 3571 Oct, PTSD (post-traumatic stress disorder) F43.10 [facility] [id number] [place] [address] 00649- 6986 Oct, [facility] [id number] 283 Oct, PTSD (post-traumatic stress disorder) F43.10 and Tobacco dependency F17.200 [facility] [address] 02524- 579 Oct, [place] [address] 80149 4416 Oct, Other dorsalgia M54.89 [place] [address] 262 Oct, Anorexia R63.0 [place] [address] 68550- 764 September, PTSD (post-traumatic stress disorder) F43.10 [place] [address] 79247 352 September, Low TSH level R94.6 [place] [address] 19350 8197 September, Other dorsalgia M54.89 [facility] [id number] September, Annual physical exam Z00.00 and Migraine without aura and without status migrainosus, not intractable G43.009 [facility] [id number] [place] [address] 05427- 8250 September, Abnormal TSH R94.6 and Dysfunction of left eustachian tube H69.82 [facility] [address] 07229- 056 Aug, [facility] [address] 44384- 4745 Aug, Anorexia R63.0 [facility] [address] [id number] Aug, Dental examination Z01.20 and Xerostomia K11.7 [facility] [id number] [place] [address] 35340- 2337 Aug, Neuropathy G62.9 [facility] [id number] [place] [address] 59377 2546 Aug, [facility] [id number] [place] [address] 17655- 9121 Aug, Other dorsalgia M54.89 [place] [id number] [place] [address] 99985- 2336 Aug, Type 2 diabetes mellitus with diabetic autonomic (poly) 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 ; Diabetic polyneuropathy associated with type 2 diabetes mellitus E11.42 ; Bronchitis J40 ; Gastroparesis K31.84 and Reactive depression F32.9 [place] [id number] [place] [address] 31259- 0573 Aug, PTSD (post-traumatic stress disorder) F43.10 [place] [id number] [place] [address] 85574- 9757 Aug, Other dorsalgia M54.89 and Anorexia R63.0 [facility] [id number] [place] [address] 04159- 2292 Jul, [facility] [id number] [place] [address] 83360- 7001 Jul, Other dorsalgia M54.89 [facility] [id number] [place] [address] 12849- 2921 Jul, [facility] [id number] [place] [address] 003402- 5285 Jul, [facility] [id number] [place] [address] 27729- 9146 Jul, PTSD (post-traumatic stress disorder) F43.10 [facility] [id number] [place] [address] 02791- 4502 Jul, [facility] [id number] [place] [address] 08317- 1046 Jul, [facility] [id number] [place] [address] 36458- 3706 Jul, [facility] [address] 57820 2546 Jul, Anorexia R63.0 [facility] [address] 37952- 0246 Jun, [facility] [address] 92252- 8176 Jun, Vaginal discharge N89.8 ; Visit for gynecologic examination Z01.419 and Pelvic pressure in female R10.2 [facility] [address] 98109- 1326 Jun, [facility] [id number] [place] [address] 95330- 6641 Jun, Other dorsalgia M54.89 [facility] [id number] [place] [address] 20958- 0406 Jun, [facility] [id number] [place] [address] 10268- 0476 Jun, [facility] [id number] [place] [address] 16676- 5326 Jun, [facility] [id number] [place] [address] 82002- 6867 May, Back pain M54.9 [facility] [address] 91134 2546 May, Anorexia R63.0 [facility] [id number] [place] [address] 60183 2546 May, Other dorsalgia M54.89 [facility] [id number] [place] [address] 68321- 5584 May, [facility] [address] 55529- 6972 May, Bronchitis J40 [facility] [id number] [place] [address] 93938- 3998 May, Type 2 diabetes mellitus with diabetic autonomic (poly) 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 ; 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 ; Back pain M54.9 and Neuropathy G62.9 [facility] [id number] [place] [address] 55149- 5304 May, Left breast mass N63.20 [place] [id number] [place] [address] 82515- 4504 May, [place] [address] 66747- 3612 Apr, Other dorsalgia M54.89 [facility] [address] 62239 2545 Apr, Anorexia R63.0 [facility] [address] 32879- 7866 Apr, Anorexia R63.0 [facility] [id number] [place] [address] 64748- 8436 Apr, Mass of left breast N63.20 [facility] [id number] [place] [address] 97527- 9245 Apr, [facility] [id number] [place] [address] 89729- 9576 Apr, [facility] [address] 81142- 4451 14 Apr, 2017 Diarrhea of presumed infectious origin A09 [place] [id number] [place] [address] 36281- 4573 Apr, Encounter for immunization Z23 [facility] [id number] [place] [address] 43399- 0048 Apr, [facility] [id number] [place] [address] 50884- 9325 Mar, Other dorsalgia M54.89 [facility] [id number] [place] [address] 08102- 2645 Mar, [facility] [address] 82721- 9297 Mar, [facility] [id number] [place] [address] 57606- 8790 Mar, Anorexia R63.0 [facility] [address] 07804- 5326 Mar, [facility] [id number] [place] [address] 53442- 8889 Mar, Other dorsalgia M54.89 [facility] [id number] [place] [address] 47412- 8795 Mar, [facility] [address] 58048- 8198 Mar, Encounter for immunization Z23 [facility] [id number] [place] [address] 90345- 1106 Feb, Anorexia R63.0 [facility] [id number] [place] [address] 24494- 9194 Feb, Diabetes E11.9 [facility] [id number] [place] [address] 71615- 6095 Feb, Back pain M54.9 and Diabetes E11.9 [facility] [id number] [place] [address] 15169- 6700 Feb, Diabetes E11.9 [facility] [id number] [place] [address] 31630- 4175 Feb, Neuropathy G62.9 [facility] [id number] [place] [address] 31980- 0759 Feb, Encounter for immunization Z23 ; Epigastric pain R10.13 ; Weight loss, abnormal R63.4 and Neuropathy G62.9 [facility] [place] [address] [id number] Feb, [facility] [address] 60959- 1537 Feb, [facility] [address] 44527- 1445 Feb, Intractable vomiting with nausea, unspecified vomiting type R11.2 [facility] [address] 33475 -1345 Feb, Chronic nausea R11.0 [facility] [address] 47296- 2900 Feb, Other dorsalgia M54.89 [facility] [address] 56162- 1203 Jan, [facility] [address] 40371- 7078 Jan, [facility] [id number] [place] [address] 61049- 2111 Jan, [facility] [address] 87442- 3826 Jan, [facility] [address] 17635- 8585 Jan, Asthma exacerbation J45.901 ; Bronchitis J40 and Neuropathy G62.9 [facility] [address] 15809- 4403 Jan, Anorexia R63.0 [facility] [address] 18627- 4734 Jan, Other dorsalgia M54.89 [facility] [id number] [place] [address] 56496- 1569 Dec, [facility] [id number] [place] [address] 09848- 5507 Dec, [facility] [id number] [place] [address] 20621- 8587 Dec, Anorexia R63.0 [facility] [address] 52848- 6998 Dec, Primary insomnia F51.01 [facility] [id number] [place] [address] 45802- 4484 Dec, Other dorsalgia M54.89 [facility] [address] 47663- 6512 Dec, [facility] [id number] [place] [address] 25686- 5165 Nov, [facility] [id number] [place] [address] 82875- 7140 Nov, [facility] [id number] [place] [address] 55370- 5868 Nov, [facility] [id number] [place] [address] 58860- 1861 Nov, History of colon polyps Z86.010 [facility] [id number] [place] [address] 39319- 4388 Nov, Weight loss R63.4 ; Nausea and vomiting, intractability of vomiting not specified, unspecified vomiting type R11.2 and Abnormal LFTs R79.89 [facility] [id number] [place] [address] 36500- 2565 Nov, [facility] [id number] [place] [address] 50152- 2788 Nov, Neuropathy G62.9 and Pain in right knee M25.561 [facility] [address] [place] [address]- 0666 12 Nov, 2016 Back pain M54.9 [facility] [id number] [place] [address] 66725- 0288 10 Nov, 2016 [facility] [id number] [place] [address] 73187- 2454 08 Nov, 2016 Bronchitis J40 [facility] [id number] [place] [address] 11847- 7696 03 Nov, 2016 Weight loss R63.4 [facility] [id number] [place] [address] 71457- 3273 16 Oct, 2016 Back pain M54.9 [facility] [id number] [place] [address] 89020- 8391 Oct, [facility] [id number] [place] [address] 42707- 3608 Oct, Back pain M54.9 [facility] [id number] [place] [address] 41184- 0348 Oct, Type 2 diabetes mellitus without complications E11.9 and Bronchitis J40 [facility] [id number] [place] [address] 95376- 2454 Oct, [facility] [id number] [place] [address] 58297- 7691 Oct, [facility] [id number] [place] [address] 81633- 8916 September, Gastroparesis K31.84 ; Type 2 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 and Neuropathy G62.9 [facility] [id number] [place] [address] 59168- 1691 September, Other dorsalgia M54.89 [facility] [id number] [place] [address] 34920- 0937 September, [facility] [address] 04073- 4308 September, [facility] [id number] [place] [address] 68181- 2375 Aug, Gastroparesis K31.84 and Radicular leg pain M54.10 [facility] [id number] [place] [address] 22579- 6277 Aug, Anorexia R63.0 [facility] [address] 31301- 9326 Aug, Bronchitis J40 [facility] [id number] [place] [address] 32242- 7379 Aug, Back pain M54.9 [facility] [id number] [place] [address] 71221- 5207 Aug, Routine gynecological examination Z01.419 ; Routine screening for STI (sexually transmitted infection) Z11.3 and Yeast infection of the vagina B37.3 [facility] [id number] [place] [address] 08787- 5805 Jul, Other dorsalgia M54.89 [facility] [address] 73272- 7638 Jul, Diabetes E11.9 and Gastroparesis K31.84 [facility] [id number] [place] [address] 18744- 1808 Jun, [facility] [id number] [place] [address] 61225- 5895 Jun, Back pain M54.9 [facility] [id number] [place] [address] 93694- 8190 Jun, Neuropathy G62.9 [facility] [id number] [place] [address] [id number] Jun, 2016 Encounter for dental examination Z01.20 [facility] [id number] [place] [address] 70194- 2755 01 Feb, 2017 Gastroparesis 536.3 and Anorexia R63.0 [facility] [address] 38803- 2546 27 May, 2016 Other dorsalgia M54.89 [facility] [address] 53635- 2546 May, Periumbilical abdominal pain R10.33 ; Weight loss R63.4 and Gastroparesis K31.84 [facility] [address] 42958- 2546 May, Back pain M54.9 [facility] [address] 68460- 2546 Apr, Anorexia R63.0 [facility] [address] 54950 2546 Apr, Anorexia R63.0 [facility] [address] 62436 2546 Apr, Back pain M54.9 [facility] [address] 56198- 2546 Apr, Back pain M54.9 [facility] [address] 63815 2546 Apr, [facility] [address] 47696 2546 Apr, Bronchitis J40 and Neuropathy G62.9 [facility] [address] 11697- 2546 Apr, Neuropathy G62.9 [facility] [address] 80754- 2546 Apr, [facility] [address] 22675 2546 Apr, Back pain M54.9 [facility] [address] 70120- 3525 Mar, Type 2 diabetes mellitus with diabetic autonomic (poly) 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 [facility] [id number] [place] [address] 90858- 4216 Mar, Type 2 diabetes mellitus without complications E11.9 [facility] [id number] [place] [address] 82179- 0014 Mar, Neuropathy G62.9 [facility] [id number] [place] [address] 86953- 6980 Mar, [facility] [id number] [place] [address] 41573- 2397 Mar, Breast cancer screening Z12.39 [facility] [id number] [place] [address] 96988- 6323 Mar, Other dorsalgia M54.89 [facility] [id number] [place] [address] 01989- 2681 Feb, [facility] [id number] [place] [address] 30033- 5916 Jan, Neuropathy G62.9 ; Type 2 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 ; Uncomplicated asthma, unspecified asthma severity J45.909 and Encounter for immunization Z23 [facility] [id number] [place] [address] 55712- 0334 Jan, [facility] [id number] [place] [address] 70551- 6948 Jan, [facility] [id number] [place] [address] 22046- 2322 Dec, [facility] [id number] [place] [address] 69756- 3383 Dec, [facility] [id number] [place] [address] 67775- 1536 Nov, [facility] [id number] [place] [address] 63699- 0988 Nov, Back pain M54.9 [facility] [id number] [place] [address] 81834- 5890 Nov, Neuropathy G62.9 ; Mixed hyperlipidemia E78.2 ; Type 2 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 [facility] [id number] [place] [address] 59475- 8466 Oct, [facility] [address] 80517- 4453 Oct, Other dorsalgia M54.89 [facility] [address] 81479- 5940 September, Primary insomnia F51.01 [facility] [address] 26637- 1068 September, [facility] [address] 96119- 2877 Aug, Other dorsalgia M54.89 [facility] [id number] [place] [address] 19750- 2594 Jul, [facility] [address] 34989- 0787 Jul, Other dorsalgia M54.89 [facility] [id number] [place] [address] 76821- 3735 Jul, Diabetes E11.9 ; Back pain M54.9 ; Neuropathy G62.9 and Gastroparesis K31.84 [facility] [id number] [place] [address] 50103- 6597 Jun, [facility] [address] 88292- 4653 Jun, Other dorsalgia M54.89 [facility] [id number] [place] [address] 76388- 0216 May, [facility] [id number] [place] [address] 33895- 7650 May, Radicular leg pain M54.10 and Other dorsalgia M54.89 [facility] [id number] [place] [address] 32738- 8981 Apr, [facility] [id number] [place] [address] [phone] Mar, [facility] [id number] [place] [address] [phone]- [phone] Mar, [facility] [id number] [place] [address] [id number]- [phone] Mar, Radicular leg pain M54.10 [facility] [id number] [place] [address] [phone]- [phone] Feb, [facility] [id number] [place] [address] [phone]- [phone] Feb, [facility] [id number] [place] [address] [phone]- [phone] Feb, [facility] [id number] [place] [address] [phone]- 4782 Jan, [facility] [id number] [place] [address] [phone]- 7176 Jan, IBS (irritable bowel syndrome) 564.1 [facility] [id number] [place] [address] [phone]- [phone] Jan, [facility] [id number] [place] [address] 72028- 3894 Jan, [facility] [id number] [place] [address] 29087- 6803 Jan, Diabetes mellitus without mention of complication, type II or unspecified type, not stated as uncontrolled 250.00 ; Gastroparesis 536.3 and Hypoacusis 389.9 [facility] [id number] [id number] Jan, [facility] [id number] [place] [address] Jan, [facility] [id number] [address]- [address] Dec, [facility] [facility] [address], [place] [address] Dec, [facility] [id number] [place] [address] Dec, [facility] [id number] [place] [address] Dec, Back pain 724.5 and Gastroparesis 536.3 [facility] [address], [place] [address] Nov, [facility] [place] [facility] [address] [id number] Nov, Dental examination V72.2 [facility] [address], [place] [address] Nov, [facility] [address] [place] [address] Nov, [facility] [address], [place] [address] Nov, Depressive disorder, not elsewhere classified 311 and No condition on [place] II V71.09 [facility] [address], [place] [address] Nov, Diabetes 250.00 and Symptomatic menopausal or female climacteric states 627.2 [facility] [address], [place] [address] Oct, [facility] [id number] [address] Oct, Lumbar strain 847.2 [facility] [address], [place] [address] Oct, Gastroparesis 536.3 and Unspecified myalgia and myositis 729.1 [facility] [address] [facility] [id number] [place] [address] 14 Aug, 2014 [facility] [address] [facility] [id number] [place] [address] Aug, [facility] [address] [facility] [id number], [place] [address] Jul, [facility] [address] [facility] [id number] [place] [address] Jul, [facility] [address] [id number] [place] [address] Jul, [facility] [address] [address] Jul, [facility] [address] [id number] [address] Jul, [facility] [address] [id number] [address] Jun, [facility] [address] [id number] [address] Jun, [facility] [id number], [place] [address] Jun, [facility] [id number], [place] [address] May, [facility] [address] [id number] [address] May, [facility] [address] [facility] [id number] [address] Mar, [facility] [address] [id number] [address] Mar, [facility] [place] [facility] [address] [id number] [place] [address] Mar, [facility] [place] [facility] [address] [id number] [place] [address] Mar, [facility] [place] [facility] [address] [id number] [place] [address] Mar, [facility] [place] [facility] [address] [id number] [place] [address]- [address] Mar, [facility] [place] [facility] [address] [id number] [place] [address] Feb, [facility] [place] [facility] [address] [id number] [place] [address] Feb, [facility] [place] [facility] [address] [id number] [place] [address]- 1390 Nov, [facility] [place] [facility] [address] [id number] [place] [address] Nov, [facility] [place] [facility] [address] [id number] [place] [address]- [address] Nov, [facility] [place] [facility] [address] [id number] [place] [address]- [address] Oct, [facility] [place] [facility] [address] [id number] [place] [address]- [address] September, [facility] [place] [facility] [address] [id number] [place] [address]- [address] Aug, [facility] [place] [facility] [address] [id number] [place] [address]- [address] 15 Aug, 2012 [facility] [place] [facility] [address] [id number] [place] [address]- [address] Aug, [facility] [place] [facility] [address] [id number] [place] [address]- [address] Aug, [facility] [place] [facility] [address] [id number] [place] [address]- [address] Aug, [facility] [address] [id number] [place] [address]- [address] Aug, [facility] [place] [facility] [address] [id number] [place] [address]- 114[address] Aug, [facility] [place] [facility] [address] [id number] [place] [address]- [address]135 Aug, [facility] [place] [facility] [address] [id number] [place] [address]- [address] Jul, [facility] [place] [facility] [address] [id number] [place] [address]- 79[address] Jul, [facility] [place] [facility] [address] [id number] [place] [address]- 1154 Jun, [facility] [place] [facility] [address] [id number] [place] [address]- 3763 Jun, [facility] [place] [facility] [address] [id number] [place] [address]- [address] Jun, [facility] [place] [facility] [address] [id number] [place] [address]- 8914 Jun, [facility] [place] [facility] [address] [id number] [place] [address]- 0990 Jun, [facility] [place] [facility] [address] [id number] [place] [address]- [address]005 Jun, [facility] [place] [facility] [address] [id number] [place] [address]- [address] Jun, [facility] [place] [facility] [address] [id number] [place] [address]- 6[address] May, [facility] [place] [facility] [address] [id number] [place] [address]- [address]35 May, [facility] [place] [facility] [address] [id number] [place] [address]- 33[address] May, [facility] [place] [facility] [address] [facility] [id number], [place] [address] May, [facility] [address] [facility] [id number], [place] [address] Mar, [facility] [address] [facility] [id number], [place] [address]- [address] Mar, [facility] [address] [facility] [id number], [place] [address] Jan, IMMUNIZATIONS No Known Immunizations SOCIAL HISTORY Never Assessed REASON FOR VISIT Pain management (chronic) / TSH levels WB-MA PLAN OF CARE Activity Details Follow Up Regular appt Reason: VITAL SIGNS Height 62 in 2017-09-26 Weight 99 lbs 2017-09-26 Temperature 98.4 degrees Fahrenheit 2017-09-26 Heart Rate 100 bpm 2017-09-26 Respiratory Rate 18 2017-09-26 BMI 18.11 kg/m2 2017-09-26 Blood pressure systolic 116 mmHg 2017-09-26 Blood pressure diastolic 68 mmHg 2017-09-26 MEDICATIONS Medication Instructions Dosage Frequency Start Date End Date Duration Status MiraLax - Orally Once a day as needed 1 packet mixed with 8 ounces of fluid Active Humalog KwikPen 100 INJECT 5 UNITS SUB-Q THREE TIMES DAILY BOFORE MEALS Active ProAir HFA 108 INHALE 2 PUFFS BY MOUTH FOUR TIMES DAILY NEEDED 25 Active Quad Cane - as directed 24h Apr, Active Lyrica 150 MG Orally Twice a day 1 capsule 12h 30 days Active Multiple Vitamins-Iron - Orally Once a day 1 tablet 24h Active Cyclobenzaprine HCl 10 TAKE 1 TABLET BY MOUTH THREE TIMES DAILY 30 Active Omeprazole 40 mg 1 CAP(S) ONCE A DAY ORALLY 30 DAYS 30 Active Microlet Lancets 0 USE DIRECTED THREE TIMES DAILY 30 Active Marinol 5 mg Orally Twice a day 1 capsule before lunch and supper 12h 28 days Active Zofran ODT 8 MG DISSOLVE ONE TABLET ON THE TONGUE EVERY 6 HOURS 5 Active Tizanidine HCl 4 MG Orally 2 times a day 1 tablet 12h 30 Active Ayden Contour Next Test - subcutaneously 3 times a day test blood sugar 8h Active Lantus SoloStar 100 8 units 12h Active Cyanocobalamin 1000 MCG Orally Once a day 1 tablet 24h Active Oxycodone-Acetaminophen 10-325 MG Orally 4 times a day 1 tablet as needed 6h Aug, 28 days Active Comfort Lancets - as directed 8h 30 Mar, 2016 Active Xarelto 20 mg 1 Tablet by Oral route 1 time per day Jul, Active Atorvastatin Calcium 40 MG TAKE ONE TABLET BY MOUTH ONCE DAILY (LAST REFILL MUST HAVE LABS) 30 Active Promethazine HCl 25 MG Orally every 6 hours 1 tablet 6h 30 Active SudoGest 60 mg Orally every 6 hrs 1 tablet as needed 6h September, 07 days Active Cymbalta 30 mg Orally every morning 2 capsules 30 days Active RESULTS Name Result Date Reference Range T4 FREE 2017-09-26 T4, FREE 1.0 0.8-1.8 PROCEDURES Procedure Date Ordered Result Body [facility] September 26, 2017 [facility] VISIT ESTABLISHED PATIENT September 26, 2017 JOSEPH ARMSTRONG* September 26, 2017 INSTRUCTIONS MEDICATIONS ADMINISTERED No Known Medications [...] vomitting-[facility] 03/05/17 Hospitalization History hospital stay at [facility] for stomach issues 2016
--- OUTSIDE RECORDS SUMMARY | 2018-01-27 19:54 | XMS REPORT ---
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 Role Phone EDWINBERNADETTE CROSSA Unavailable PROBLEMS Type Condition ICD9-CM Code RFS72-EE Code Onset Dates Condition Status SNOMED Code Problem Primary insomnia F51.01 Active 1682276 Problem Reactive depression F32.9 Active 86280114 Problem Asthma exacerbation J45.901 Active 019306319 Problem Irritable bowel syndrome with constipation K58.1 Active 635341798 Problem Back pain M54.9 Active 594217218 Problem Tobacco dependency F17.200 Active 07653510 Problem Low TSH level R94.6 Active 234149858 Problem PTSD (post-traumatic stress disorder) F43.10 Active 77430291 Problem Diabetic polyneuropathy associated with type 2 diabetes mellitus E11.42 Active 62084032 Problem Annual physical exam Z00.00 Active 818829845 Problem Migraine without aura and without status migrainosus, not intractable G43.009 Active 171102435 Problem Gastroparesis K31.84 Active 809074193 Problem 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 Active 375503932 Problem Neuropathy G62.9 Active 488627210 Problem Diabetes E11.9 Active 60684127 Problem Uncomplicated asthma, unspecified asthma severity J45.909 Active 285828239 Problem Anorexia R63.0 Active 12684975 Problem Mixed hyperlipidemia E78.2 Active 711791595 Problem Weight loss R63.4 Active 541758641 Problem Type 2 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 Active 98204232 Problem History of colon polyps Z86.010 Active 073430096 ALLERGIES No Information ENCOUNTERS Encounter Location Date Diagnosis [facility] [address] [id number] [address] 18 Jan, 2018 [facility] [address] [id number] [address] Dec, [place] [id number] [place] [address] 69554- 7398 Nov, Irritable bowel syndrome with constipation K58.1 ; Uncomplicated asthma, unspecified asthma severity J45.909 and Type 2 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 [facility] [id number] [place] [address] [id number] Nov, Dental examination Z01.20 [place] [address] 07016- 6991 Nov, Other dorsalgia M54.89 [place] [address] 82056- 1924 Nov, LLQ pain R10.32 ; Low TSH level R94.6 and Gastroparesis K31.84 [place] [address] 13519- 0899 Nov, Anorexia R63.0 [place] [address] 25092- 6452 Nov, Asthma exacerbation J45.901 [place] [address] 41192- 6079 Oct, PTSD (post-traumatic stress disorder) F43.10 [place] [id number] [place] [address] 20700- 5320 Oct, [place] [address] 15608- 5135 Oct, PTSD (post-traumatic stress disorder) F43.10 and Tobacco dependency F17.200 [place] [address] 20645- 2213 Oct, [place] [address] 58011- 8652 Oct, Other dorsalgia M54.89 [place] [address] 17037- 8939 Oct, Anorexia R63.0 [place] [id number] [address]750- 0257 September, PTSD (post-traumatic stress disorder) F43.10 [place] [address] 67228- 6530 September, Low TSH level R94.6 [place] [address] 859310- 5419 September, Other dorsalgia M54.89 [place] [address] 73341 0872 September, Annual physical exam Z00.00 and Migraine without aura and without status migrainosus, not intractable G43.009 [place] [address] 36155- 3575 September, Abnormal TSH R94.6 and Dysfunction of left eustachian tube H69.82 [place] [address] 90950- 0663 Aug, [facility] [address] 59223- 2224 Aug, Anorexia R63.0 [facility] [address] [id number] Aug, Dental examination Z01.20 and Xerostomia K11.7 [facility] [address] 52824- 1908 Aug, Neuropathy G62.9 [place] [address] 73079- 8327 Aug, [place] [address] 55986- 3112 Aug, Other dorsalgia M54.89 [place] [address] 71969- 8518 Aug, Type 2 diabetes mellitus with diabetic autonomic (poly) 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 ; Diabetic polyneuropathy associated with type 2 diabetes mellitus E11.42 ; Bronchitis J40 ; Gastroparesis K31.84 and Reactive depression F32.9 [facility] [id number] [place] [address] 03459 2546 Aug, PTSD (post-traumatic stress disorder) F43.10 [facility] [address] 92972 2546 Aug, Other dorsalgia M54.89 and Anorexia R63.0 [facility] [address] 57558 2546 Jul, [facility] [address] 37772 2546 Jul, Other dorsalgia M54.89 [facility] [address] 57443 2546 Jul, [facility] [id number] [place] [address] 03316 2546 Jul, [facility] [address] 64654 2546 Jul, PTSD (post-traumatic stress disorder) F43.10 [facility] [id number] [place] [address] 65027 2546 Jul, [facility] [id number] [place] [address] 20500 2546 Jul, [facility] [id number] [place] [address] 11018 2546 Jul, [facility] [address] 31466 2546 Jul, Anorexia R63.0 [facility] [id number] [place] [address] 67869 2546 Jun, [facility] [address] [place] [address]- 8742 Jun, Vaginal discharge N89.8 ; Visit for gynecologic examination Z01.419 and Pelvic pressure in female R10.2 [facility] [address] 76625- 5536 Jun, [facility] [address] 79489- 2026 Jun, Other dorsalgia M54.89 [facility] [address] 25877- 0586 Jun, [facility] [address] 44790- 5496 Jun, [facility] [address] 04145- 3487 Jun, [facility] [address] 29666- 0033 May, Back pain M54.9 [facility] [address] 83479- 7616 May, Anorexia R63.0 [facility] [address] 69576- 5034 May, Other dorsalgia M54.89 [facility] [id number] [place] [address] 12256- 2258 May, [facility] [address] 77030- 8485 May, Bronchitis J40 [facility] [id number] [place] [address] 20284- 6958 May, Type 2 diabetes mellitus with diabetic autonomic (poly) 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 ; 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 ; Back pain M54.9 and Neuropathy G62.9 [facility] [id number] [place] [address] 82861- 4693 May, Left breast mass N63.20 [facility] [id number] [place] [address] 11933- 8314 May, [facility] [address] 70860- 2306 Apr, Other dorsalgia M54.89 [facility] [address] 51406 2546 Apr, Anorexia R63.0 [facility] [address] 57349- 9836 Apr, Anorexia R63.0 [facility] [address] 79884- 0149 Apr, Mass of left breast N63.20 [facility] [address] 93423- 5286 Apr, [facility] [address] 64148- 6603 Apr, [facility] [address] 31064- 3271 Apr, Diarrhea of presumed infectious origin A09 [facility] [address] 09204- 7465 Apr, Encounter for immunization Z23 [facility] [address] 17416- 0237 Apr, [facility] [id number] [place] [address] 82653 2548 Mar, Other dorsalgia M54.89 [facility] [address] 93517- 8666 Mar, [facility] [address] 59135 2544 Mar, [facility] [id number] [place] [address] 77047- 0262 Mar, Anorexia R63.0 [facility] [id number] [place] [address] 11228- 2356 Mar, [facility] [address] 16307- 1467 Mar, Other dorsalgia M54.89 [facility] [address] 11667- 9103 Mar, [facility] [address] 02296- 5542 Mar, Encounter for immunization Z23 [facility] [address] 55947- 4689 Feb, Anorexia R63.0 [facility] [address] 62639- 6363 Feb, Diabetes E11.9 [facility] [address] 07476- 6419 Feb, Back pain M54.9 and Diabetes E11.9 [facility] [id number] [place] [address] 99575- 6478 Feb, Diabetes E11.9 [facility] [id number] [place] [address] 18360- 5523 Feb, Neuropathy G62.9 [facility] [id number] [place] [address] 59451- 1980 Feb, Encounter for immunization Z23 ; Epigastric pain R10.13 ; Weight loss, abnormal R63.4 and Neuropathy G62.9 [facility] [place] [id number] [place] [address] [id number] Feb, [facility] [address] 92113- 1885 Feb, [facility] [id number] [place] [address] 86716- 7035 Feb, Intractable vomiting with nausea, unspecified vomiting type R11.2 [facility] [id number] [place] [address] 99295 -8216 09 Feb, 2017 Chronic nausea R11.0 [facility] [id number] [place] [address] 23637- 4898 Feb, Other dorsalgia M54.89 [facility] [id number] [place] [address] 25814- 1692 Jan, [facility] [id number] [place] [address] 85240- 2788 Jan, [facility] [id number] [place] [address] 82625- 5255 Jan, [facility] [id number] [place] [address] 18488- 5949 Jan, [facility] [id number] [place] [address] 66099- 9291 Jan, Asthma exacerbation J45.901 ; Bronchitis J40 and Neuropathy G62.9 [facility] [id number] [place] [address] 08657- 0582 06 Jan, 2017 Anorexia R63.0 [facility] [id number] [place] [address] 89330- 5901 Jan, Other dorsalgia M54.89 [facility] [id number] [place] [address] 43789- 4280 Dec, [facility] [id number] [place] [address] 25099- 4090 Dec, [facility] [id number] [place] [address] 21188- 2973 Dec, Anorexia R63.0 [facility] [id number] [place] [address] 79775- 4665 14 Dec, 2016 Primary insomnia F51.01 [facility] [id number] [place] [address] 47978- 0979 Dec, Other dorsalgia M54.89 [facility] [address] [address] 3011 Dec, [facility] [id number] [place] [address] 49070- 7720 Nov, [facility] [id number] [place] [address] 33819- 0452 Nov, [facility] [id number] [place] [address] 94246- 7573 Nov, [facility] [id number] [place] [address] 99812- 9281 Nov, History of colon polyps Z86.010 [facility] [id number] [place] [address] 67118- 3232 Nov, Weight loss R63.4 ; Nausea and vomiting, intractability of vomiting not specified, unspecified vomiting type R11.2 and Abnormal LFTs R79.89 [facility] [id number] [place] [address] 93371- 5573 Nov, [facility] [id number] [place] [address] 36873- 6739 Nov, Neuropathy G62.9 and Pain in right knee M25.561 [facility] [id number] [place] [address] 01671- 9177 Nov, Back pain M54.9 [facility] [id number] [place] [address] 87036- 0658 Nov, [facility] [id number] [place] [address] 35020- 9456 Nov, Bronchitis J40 [facility] [id number] [place] [address] 91477- 4173 Nov, Weight loss R63.4 [facility] [id number] [place] [address] 30918- 8059 Oct, Back pain M54.9 [facility] [id number] [place] [address] 50647- 0409 16 Oct, 2016 [facility] [id number] [place] [address] 97793- 2733 14 Oct, 2016 Back pain M54.9 [facility] [id number] [place] [address] 45348- 3126 13 Oct, 2016 Type 2 diabetes mellitus without complications E11.9 and Bronchitis J40 [facility] [id number] [place] [address] 47385- 5151 Oct, [facility] [id number] [place] [address] 93652- 4623 Oct, [facility] [id number] [place] [address] 51223- 4795 September, Gastroparesis K31.84 ; Type 2 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 and Neuropathy G62.9 [facility] [id number] [place] [address] 68210- 0819 September, Other dorsalgia M54.89 [facility] [id number] [place] [address] 90258- 0814 September, [facility] [id number] [place] [address] 45994- 6629 September, [facility] [id number] [place] [address] 85629- 3671 Aug, Gastroparesis K31.84 and Radicular leg pain M54.10 [facility] [id number] [place] [address] 25135- 0086 Aug, Anorexia R63.0 [facility] [id number] [place] [address] 85517- 6592 Aug, Bronchitis J40 [facility] [id number] [place] [address] 55545- 1947 Aug, Back pain M54.9 [facility] [address] [place] [address] 58352- 9252 Aug, Routine gynecological examination Z01.419 ; Routine screening for STI (sexually transmitted infection) Z11.3 and Yeast infection of the vagina B37.3 [facility] [id number] [place] [address] 64081- 5937 Jul, Other dorsalgia M54.89 [facility] [id number] [place] [address] 40641- 9939 Jul, Diabetes E11.9 and Gastroparesis K31.84 [place] [address] 98782- 1897 Jun, [facility] [id number] [place] [address] 09478- 0619 Jun, Back pain M54.9 [facility] [id number] [place] [address] 24943- 7184 14 Jun, 2016 Neuropathy G62.9 [facility] [id number] [place] [address] [id number] 02 Jun, 2016 Encounter for dental examination Z01.20 [place] [id number] [place] [address] 05539- 7478 Jun, Gastroparesis 536.3 and Anorexia R63.0 [place] [id number] [place] [address] 89742- 7219 May, Other dorsalgia M54.89 [place] [id number] [place] [address] 10141- 0221 May, Periumbilical abdominal pain R10.33 ; Weight loss R63.4 and Gastroparesis K31.84 [facility] [id number] [place] [address] 10442- 5979 May, Back pain M54.9 [facility] [id number] [place] [address] 32841- 6333 Apr, Anorexia R63.0 [facility] [id number] [place] [address] 03900 2546 Apr, Anorexia R63.0 [facility] [id number] [place] [address] 03320 2546 16 Apr, 2016 Back pain M54.9 [facility] [id number] [place] [address] 10127 2546 15 Apr, 2016 Back pain M54.9 [facility] [id number] [place] [address] 79990 2546 Apr, [facility] [id number] [place] [address] 17078 2546 Apr, Bronchitis J40 and Neuropathy G62.9 [facility] [id number] [place] [address] 82565 2546 Apr, Neuropathy G62.9 [facility] [id number] [place] [address] 82017 2546 Apr, [facility] [id number] [place] [address] 58617 2545 Apr, Back pain M54.9 [facility] [id number] [place] [address] 89082 2546 Mar, Type 2 diabetes mellitus with diabetic autonomic (poly) 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 [facility] [id number] [place] [address] 10076 254 Mar, Type 2 diabetes mellitus without complications E11.9 [facility] [address] [place] [address] 66000 2546 Mar, Neuropathy G62.9 [facility] [id number] [place] [address] 87276 2546 Mar, [facility] [id number] [place] [address] 48520- 3252 Mar, Breast cancer screening Z12.39 [facility] [id number] [place] [address] 90666- 0492 Mar, Other dorsalgia M54.89 [facility] [id number] [place] [address] 91472- 8938 Feb, [facility] [id number] [place] [address] 43866- 6107 30 Jan, 2016 Neuropathy G62.9 ; Type 2 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 ; Uncomplicated asthma, unspecified asthma severity J45.909 and Encounter for immunization Z23 [facility] [address] 00113- 0751 09 Jan, 2016 [facility] [address] 92999- 1255 Jan, [facility] [address] 14640- 3710 Dec, [facility] [id number] [place] [address] 47791- 0692 Dec, [facility] [address] 43618- 5883 Nov, [facility] [id number] [place] [address] 07995- 0527 Nov, Back pain M54.9 [facility] [address] 37987- 5579 Nov, Neuropathy G62.9 ; Mixed hyperlipidemia E78.2 ; Type 2 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 and 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 [facility] [id number] [place] [address] 15467- 9885 Oct, [facility] [id number] [place] [address] 36011- 3764 Oct, Other dorsalgia M54.89 [facility] [address] 28704- 8688 September, Primary insomnia F51.01 [facility] [id number] [place] [address] 18220- 5077 September, [facility] [id number] [place] [address] 97026- 6462 Aug, Other dorsalgia M54.89 [facility] [id number] [place] [address] 62068- 2491 Jul, [facility] [id number] [place] [address] 20865- 9620 Jul, Other dorsalgia M54.89 [facility] [id number] [place] [address] 40997- 9334 Jul, Diabetes E11.9 ; Back pain M54.9 ; Neuropathy G62.9 and Gastroparesis K31.84 [facility] [id number] [place] [address] 36834- 5083 Jun, [facility] [id number] [place] [address] 32818- 8230 Jun, Other dorsalgia M54.89 [facility] [id number] [place] [address] 33136- 9138 May, [facility] [id number] [place] [address] 28720- 6375 May, Radicular leg pain M54.10 and Other dorsalgia M54.89 [facility] [id number] [place] [address] 53456- 6214 Apr, [facility] [id number] [place] [address] 81951- 3215 Mar, [facility] [id number] [place] [address] 80385- 6358 Mar, [facility] [id number] [place] [address] 95400- 3168 Mar, Radicular leg pain M54.10 [facility] [id number] [address] Feb, [facility] [id number] [place] [address] 290503- 6034 Feb, [facility] [id number] [address] 4[address] Feb, [facility] [id number] [place] [address] 85198- 4739 Jan, [facility] [id number] [place] [address] 37339- 0196 Jan, IBS (irritable bowel syndrome) 564.1 [facility] [id number] [place] [address] 87981- 0191 Jan, [facility] [id number] [place] [address] 43546- 7608 Jan, [facility] [id number] [place] [address] 29662- 9142 Jan, Diabetes mellitus without mention of complication, type II or unspecified type, not stated as uncontrolled 250.00 ; Gastroparesis 536.3 and Hypoacusis 389.9 [facility] [id number] [address] 6[address] Jan, [facility] [id number] [place] [address] Jan, [facility] [id number] [place] [address] 8237 Dec, [facility] [id number] [place] [address] 77678- 6710 Dec, [facility] [id number] [place] [address] 38[address] Dec, [facility] [id number] [place] [address] 00695- 3469 Dec, Back pain 724.5 and Gastroparesis 536.3 [facility] [id number] [address] Nov, [facility] [id number] [id number] Nov, Dental examination V72.2 [facility] [id number] [place] [address] 51833- 9703 Nov, [facility] [id number] [place] [address] 86023- 8372 Nov, [facility] [id number] [place] [address] 60287- 0423 Nov, Depressive disorder, not elsewhere classified 311 and No condition on Driver II V71.09 [facility] [address] [id number] [place] [address] Nov, Diabetes 250.00 and Symptomatic menopausal or female climacteric states 627.2 [facility] [id number] [address] Oct, [facility] [id number] [place] [address] Oct, Lumbar strain 847.2 [facility] [id number] [address] Oct, Gastroparesis 536.3 and Unspecified myalgia and myositis 729.1 [facility] [address] [address] Aug, [facility] [address] [address] Aug, [facility] [address] [address] Jul, [facility] [id number] [address] Jul, [facility] [place] [facility] [address] [id number] [place] [address] Jul, [facility] [place] [facility] [address] [id number] [place] [address] Jul, [facility] [place] [facility] [address] [id number] [place] [address] Jul, [facility] [place] [facility] [address] [id number] [place] [address] Jun, [facility] [place] [facility] [address] [id number] [place] [address] Jun, [facility] [place] [facility] [address] [id number] [place] [address] Jun, [facility] [place] [facility] [address] [id number] [place] [address] May, [facility] [place] [facility] [address] [id number] [place] [address] May, [facility] [place] [facility] [address] [id number] [place] [address] Mar, [facility] [place] [facility] [address] [id number] [place] [address]- [address] Mar, [facility] [place] [facility] [address] [id number] [place] [address]- [address] Mar, [facility] [place] [facility] [address] [id number] [place] [address]- [address]293 Mar, [facility] [place] [facility] [address] [id number] [place] [address]- 8780 Mar, [facility] [place] [facility] [address] [id number] [place] [address] Mar, [facility] [place] [facility] [address] [id number] [place] [address] Feb, [facility] [place] [facility] [address] [id number] [place] [address] Feb, [facility] [address] [id number] [place] [address] Nov, [facility] [address] [id number] [place] [address]- [address] Nov, [facility] [address] [id number] [place] [address] 6994 Nov, [facility] [address] [id number] [place] [address]- [address]78 Oct, [facility] [address] [id number] [place] [address] September, [facility] [address] [id number] [place] [address] Aug, [facility] [address] [id number] [place] [address] 15 Aug, 2012 [facility] [address] [id number] [place] [address] Aug, [facility] [address] [id number] [place] [address]- [address]91 Aug, [facility] [address] [id number] [place] [address]- [address] Aug, [facility] [address] [id number] [place] [address] Aug, [facility] [place] [facility] [address] [id number] [place] [address] 98[address] Aug, [facility] [place] [facility] [address] [id number] [place] [address]- 7584 Aug, [facility] [place] [facility] [address] [id number] [place] [address]- 6200 Jul, [facility] [address] [id number] [place] [address] Jul, [facility] [address], [place] [address] Jun, [facility] [address] [address] [address] Jun, [facility] [address], [place] [address] Jun, [facility] [id number], [place] [address]- [address] Jun, [facility] [id number] [address] [address] Jun, [facility] [id number] [place] [address]- [address] Jun, [facility] [id number], [place] [address]- [address] Jun, [facility] [address], [place] [address] May, [facility] [address], [place] [address] May, [facility] [address], [place] [address] May, [facility] [address], [place] [address] May, [facility] [address], [place] [address] Mar, [facility] [id number], [place] [address] Mar, [facility] [id number], [place] [address] 24 Jan, 2012 IMMUNIZATIONS No Known Immunizations SOCIAL HISTORY Never Assessed REASON FOR VISIT med reaction PLAN OF CARE VITAL SIGNS MEDICATIONS Unknown [...] vomitting-[facility] 03/05/17 Hospitalization History hospital stay at [facility] for stomach issues 2016
--- OUTSIDE RECORDS SUMMARY | 2018-01-27 19:55 | XMS REPORT ---
Author Author HORACE HIGGINS [facility] Address [address] [place] [address] Care Team Providers Care Decay Control Operator Name Role Phone HORACE HIGGINS Unavailable PROBLEMS Type Condition ICD9-CM Code [id number] Code Onset Dates Condition Status SNOMED Code Problem Primary insomnia F51.01 Active 3694683 Problem Reactive depression F32.9 Active 68354937 Problem Asthma exacerbation J45.901 Active 308361945 Problem Irritable bowel syndrome with constipation K58.1 Active 720461999 Problem Back pain M54.9 Active 228957533 Problem Tobacco dependency F17.200 Active 50330058 Problem Low TSH level R94.6 Active 689127176 Problem PTSD (post-traumatic stress disorder) F43.10 Active 66086091 Problem Diabetic polyneuropathy associated with type 2 diabetes mellitus E11.42 Active 73713039 Problem Annual physical exam Z00.00 Active 603643232 Problem Migraine without aura and without status migrainosus, not intractable G43.009 Active 818710936 Problem Gastroparesis K31.84 Active 544257722 Problem terminal gauger 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 Z79.4 Active 435902977 Problem Neuropathy G62.9 Active 075025965 Problem Diabetes E11.9 Active 36341703 Problem Uncomplicated asthma, unspecified asthma severity J45.909 Active 470439493 Problem Anorexia R63.0 Active 78140805 Problem Mixed hyperlipidemia E78.2 Active 086962204 Problem Weight loss R63.4 Active 501110772 Problem Type 2 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 Active 93639924 Problem History of colon polyps Z86.010 Active 198470810 ALLERGIES No Information ENCOUNTERS Encounter Location Date Diagnosis [facility] [address] [facility] [id number] [address] Jan, [facility] [address] [id number] [address] Dec, [place] [id number] [place] [address] 33774- 0889 Nov, Irritable bowel syndrome with constipation K58.1 ; Uncomplicated asthma, unspecified asthma severity J45.909 and Type 2 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 [facility] [id number] [place] [address] [id number] Nov, Dental examination Z01.20 [place] [address] 74389- 2777 Nov, Other dorsalgia M54.89 [place] [address] 22752- 7663 Nov, LLQ pain R10.32 ; Low TSH level R94.6 and Gastroparesis K31.84 [place] [address] 41882- 8513 Nov, Anorexia R63.0 [place] [address] 43360- 0384 Nov, Asthma exacerbation J45.901 [place] [address] 53301- 2293 Oct, PTSD (post-traumatic stress disorder) F43.10 [place] [id number] [place] [address] 48947- 5418 Oct, [place] [address] 41757- 0351 Oct, PTSD (post-traumatic stress disorder) F43.10 and Tobacco dependency F17.200 [place] [address] 50902- 5866 Oct, [place] [id number] [place] [address] 25771- 1953 Oct, Other dorsalgia M54.89 [place] [address] 94827- 5116 Oct, Anorexia R63.0 [place] [address] 219960- 7477 September, PTSD (post-traumatic stress disorder) F43.10 [place] [address] 66741- 9118 September, Low TSH level R94.6 [place] [address] 42742- 0432 September, Other dorsalgia M54.89 [place] [address] 54915- 2380 September, Annual physical exam Z00.00 and Migraine without aura and without status migrainosus, not intractable G43.009 [place] [address] 16836- 6771 September, Abnormal TSH R94.6 and Dysfunction of left eustachian tube H69.82 [place] [address] 89308- 3479 Aug, [facility] [address] 49929- 1603 Aug, Anorexia R63.0 [facility] [address] [id number] Aug, Dental examination Z01.20 and Xerostomia K11.7 [place] [address] 16430- 9040 Aug, Neuropathy G62.9 [place] [address] 66282- 2888 Aug, [place] [address] [id number]- 0915 Aug, Other dorsalgia M54.89 [place] [address] 95830- 4646 Aug, Type 2 diabetes mellitus with diabetic autonomic (poly) 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 ; Diabetic polyneuropathy associated with type 2 diabetes mellitus E11.42 ; Bronchitis J40 ; Gastroparesis K31.84 and Reactive depression F32.9 [facility] [id number] [place] [address] 06555 2546 Aug, PTSD (post-traumatic stress disorder) F43.10 [facility] [address] 59062 2546 Aug, Other dorsalgia M54.89 and Anorexia R63.0 [facility] [address] 28163 2546 Jul, [facility] [address] 03391 2546 Jul, Other dorsalgia M54.89 [facility] [address] 05481 2546 Jul, [facility] [id number] [place] [address] 01297 2546 Jul, [facility] [address] 26625 2546 Jul, PTSD (post-traumatic stress disorder) F43.10 [facility] [id number] [place] [address] 45503 2546 Jul, [facility] [id number] [place] [address] 83194 2546 Jul, [facility] [id number] [place] [address] 01475 2546 Jul, [facility] [address] 67128 2546 Jul, Anorexia R63.0 [facility] [id number] [place] [address] 70167 2546 Jun, [facility] [address] [id number]- 2546 Jun, Vaginal discharge N89.8 ; Visit for gynecologic examination Z01.419 and Pelvic pressure in female R10.2 [facility] [address] 44609- 4176 Jun, [facility] [address] 61471- 4766 Jun, Other dorsalgia M54.89 [facility] [address] 84474- 1766 Jun, [facility] [address] 67016- 8496 Jun, [facility] [address] 12657- 6863 Jun, [facility] [address] 97929- 1153 May, Back pain M54.9 [facility] [address] 57026- 2207 May, Anorexia R63.0 [facility] [address] 26725- 8300 May, Other dorsalgia M54.89 [facility] [id number] [place] [address] 02315- 2495 May, [facility] [id number] [place] [address] 43959- 6784 May, Bronchitis J40 [facility] [id number] [place] [address] 67532- 7924 May, Type 2 diabetes mellitus with diabetic autonomic (poly) 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 ; terminal gauger 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 Z79.4 ; Back pain M54.9 and Neuropathy G62.9 [facility] [id number] [place] [address] 63073- 8472 May, Left breast mass N63.20 [facility] [id number] [place] [address] 46156- 7948 May, [facility] [address] 19826- 2126 Apr, Other dorsalgia M54.89 [facility] [address] 34098 2546 Apr, Anorexia R63.0 [facility] [address] 59227 2546 Apr, Anorexia R63.0 [facility] [address] 02979- 5320 Apr, Mass of left breast N63.20 [facility] [id number] [place] [address] 26206 2546 Apr, [facility] [address] 00349- 3464 Apr, [facility] [id number] [place] [address] 50154- 8598 Apr, Diarrhea of presumed infectious origin A09 [facility] [address] 27524- 4008 Apr, Encounter for immunization Z23 [facility] [address] 11410 2546 Apr, [facility] [id number] [place] [address] 11839 2541 Mar, Other dorsalgia M54.89 [facility] [id number] [place] [address] 90315 2546 Mar, [facility] [address] 80582 2546 Mar, [facility] [id number] [place] [address] 46316- 1776 Mar, Anorexia R63.0 [facility] [id number] [place] [address] 71193- 9311 Mar, [facility] [address] 13007- 5685 Mar, Other dorsalgia M54.89 [facility] [address] 83763- 4709 Mar, [facility] [address] 24932- 7936 Mar, Encounter for immunization Z23 [facility] [address] 35055- 8019 Feb, Anorexia R63.0 [facility] [address] 41499- 5402 Feb, Diabetes E11.9 [facility] [address] 01211- 9303 Feb, Back pain M54.9 and Diabetes E11.9 [facility] [address] 73058- 9277 Feb, Diabetes E11.9 [facility] [address] 71939- 5113 Feb, Neuropathy G62.9 [facility] [id number] [place] [address] 99799- 3483 Feb, Encounter for immunization Z23 ; Epigastric pain R10.13 ; Weight loss, abnormal R63.4 and Neuropathy G62.9 [facility] [id number] [place] [address] [id number] Feb, [facility] [address] 22039- 4870 Feb, [facility] [id number] [place] [address] 88184- 5258 Feb, Intractable vomiting with nausea, unspecified vomiting type R11.2 [facility] [id number] [place] [address] 91886 -2953 Feb, Chronic nausea R11.0 [facility] [address] 04450- 3187 Feb, Other dorsalgia M54.89 [facility] [id number] [place] [address] 67462- 2882 Jan, [facility] [address] 59227- 3765 Jan, [facility] [id number] [place] [address] 01680- 6023 Jan, [facility] [id number] [place] [address] 97094- 1146 Jan, [facility] [id number] [place] [address] 67579- 3342 Jan, Asthma exacerbation J45.901 ; Bronchitis J40 and Neuropathy G62.9 [facility] [id number] [place] [address] 51176- 5531 Jan, Anorexia R63.0 [facility] [id number] [place] [address] 10738- 0667 Jan, Other dorsalgia M54.89 [facility] [id number] [place] [address] 73190- 6946 Dec, [facility] [id number] [place] [address] 01544- 5085 Dec, [facility] [id number] [place] [address] 49896- 1447 Dec, Anorexia R63.0 [facility] [id number] [place] [address] 58996- 3365 Dec, Primary insomnia F51.01 [facility] [id number] [place] [address] 07554- 6344 Dec, Other dorsalgia M54.89 [facility] [address] [address]- 5443 Dec, [facility] [id number] [place] [address] 48580- 4897 Nov, [facility] [id number] [place] [address] 11623- 5151 Nov, [facility] [id number] [place] [address] 06156- 8538 Nov, [facility] [id number] [place] [address] 34601- 5300 Nov, History of colon polyps Z86.010 [facility] [id number] [place] [address] 88884- 9898 Nov, Weight loss R63.4 ; Nausea and vomiting, intractability of vomiting not specified, unspecified vomiting type R11.2 and Abnormal LFTs R79.89 [facility] [id number] [place] [address] 82712- 4373 Nov, [facility] [id number] [place] [address] 43249- 5149 Nov, Neuropathy G62.9 and Pain in right knee M25.561 [facility] [id number] [place] [address] 67777- 6004 Nov, Back pain M54.9 [facility] [id number] [place] [address] 06760- 8961 Nov, [facility] [id number] [place] [address] 11386- 1840 Nov, Bronchitis J40 [facility] [id number] [place] [address] 11752- 1279 Nov, Weight loss R63.4 [facility] [id number] [place] [address] 88949- 2888 Oct, Back pain M54.9 [facility] [id number] [place] [address] 90287- 6254 16 Oct, 2016 [facility] [id number] [place] [address] 13425- 6554 14 Oct, 2016 Back pain M54.9 [facility] [id number] [place] [address] 65681- 2230 13 Oct, 2016 Type 2 diabetes mellitus without complications E11.9 and Bronchitis J40 [facility] [id number] [place] [address] 40159- 4396 Oct, [facility] [id number] [place] [address] 16258- 0869 Oct, [facility] [id number] [place] [address] 28095- 8162 September, Gastroparesis K31.84 ; Type 2 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 and Neuropathy G62.9 [facility] [id number] [place] [address] 98670- 8603 September, Other dorsalgia M54.89 [facility] [id number] [place] [address] 76266- 4570 September, [facility] [id number] [place] [address] 03372- 1600 September, [facility] [id number] [place] [address] 50653- 5336 Aug, Gastroparesis K31.84 and Radicular leg pain M54.10 [facility] [id number] [place] [address] 53746- 0506 Aug, Anorexia R63.0 [facility] [id number] [place] [address] 31828- 0069 Aug, Bronchitis J40 [facility] [id number] [place] [address] 80297- 1453 Aug, Back pain M54.9 [facility] [id number] [place] [address] 06511- 6476 04 Aug, 2016 Routine gynecological examination Z01.419 ; Routine screening for STI (sexually transmitted infection) Z11.3 and Yeast infection of the vagina B37.3 [facility] [id number] [place] [address] 35421- 2714 Jul, Other dorsalgia M54.89 [facility] [address] 59920- 6585 Jul, Diabetes E11.9 and Gastroparesis K31.84 [place] [address] 20755- 6726 Jun, [facility] [id number] [place] [address] 83554- 6855 Jun, Back pain M54.9 [facility] [address] 16024- 3227 14 Jun, 2016 Neuropathy G62.9 [facility] [address] [id number] Jun, 2016 Encounter for dental examination Z01.20 [place] [id number] [place] [address] 85022- 8426 01 Jun, 2016 Gastroparesis 536.3 and Anorexia R63.0 [facility] [id number] [place] [address] 24403- 0098 May, Other dorsalgia M54.89 [place] [id number] [place] [address] 99498- 4697 May, Periumbilical abdominal pain R10.33 ; Weight loss R63.4 and Gastroparesis K31.84 [facility] [id number] [place] [address] 46287- 5049 May, Back pain M54.9 [facility] [id number] [place] [address] 71322- 2960 Apr, Anorexia R63.0 [facility] [id number] [place] [address] 91290 2546 Apr, Anorexia R63.0 [facility] [id number] [place] [address] 10691 2546 Apr, Back pain M54.9 [facility] [id number] [place] [address] 88091 2546 15 Apr, 2016 Back pain M54.9 [facility] [id number] [place] [address] 05436 2546 Apr, [facility] [id number] [place] [address] 64037- 0336 Apr, Bronchitis J40 and Neuropathy G62.9 [facility] [id number] [place] [address] 18597 2546 Apr, Neuropathy G62.9 [facility] [id number] [place] [address] 85190 2546 Apr, [facility] [id number] [place] [address] 54825 2544 Apr, Back pain M54.9 [facility] [id number] [place] [address] 27848 2546 Mar, Type 2 diabetes mellitus with diabetic autonomic (poly) 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 [facility] [id number] [place] [address] 59404 2548 Mar, Type 2 diabetes mellitus without complications E11.9 [facility] [id number] [place] [address] 09706 2546 Mar, Neuropathy G62.9 [facility] [id number] [place] [address] 52590 2546 Mar, [facility] [id number] [place] [address] 05010- 2866 Mar, Breast cancer screening Z12.39 [facility] [id number] [place] [address] 77183- 1352 Mar, Other dorsalgia M54.89 [facility] [address] 98355- 7972 Feb, [facility] [address] 63030- 8020 Jan, Neuropathy G62.9 ; Type 2 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 ; Uncomplicated asthma, unspecified asthma severity J45.909 and Encounter for immunization Z23 [place] [address] 35047- 1228 Jan, [place] [address] 54341- 6718 Jan, [facility] [address] 91920- 0506 Dec, [facility] [address] 64275- 9453 Dec, [place] [address] 52788- 6180 Nov, [facility] [address] 91391- 1771 Nov, Back pain M54.9 [place] [address] 37072- 2497 Nov, Neuropathy G62.9 ; Mixed hyperlipidemia E78.2 ; Type 2 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 and jail 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 Z79.4 [facility] [address] 68063- 0864 Oct, [place] [address] 17869- 9786 Oct, Other dorsalgia M54.89 [facility] [address] 30719- 7691 September, Primary insomnia F51.01 [facility] [id number] [place] [address] 38003- 3754 September, [facility] [id number] [place] [address] 44813- 3850 Aug, Other dorsalgia M54.89 [facility] [id number] [place] [address] 61207- 3274 Jul, [facility] [id number] [place] [address] 54385- 8997 Jul, Other dorsalgia M54.89 [facility] [id number] [place] [address] 04771- 8422 Jul, Diabetes E11.9 ; Back pain M54.9 ; Neuropathy G62.9 and Gastroparesis K31.84 [facility] [id number] [place] [address] 88747- 1872 Jun, [facility] [id number] [place] [address] 28395- 5380 Jun, Other dorsalgia M54.89 [facility] [id number] [place] [address] 16524- 3912 May, [facility] [id number] [place] [address] 45897- 5816 May, Radicular leg pain M54.10 and Other dorsalgia M54.89 [facility] [id number] [place] [address] 85551- 7336 Apr, [facility] [id number] [place] [address] 77838- 1601 Mar, [facility] [id number] [place] [address]19- 7545 Mar, [facility] [id number] [place] [address] 11445- 8751 Mar, Radicular leg pain M54.10 [facility] [id number] [address] Feb, [facility] [id number] [address] Feb, [facility] [id number] [address] Feb, [facility] [id number] [place] [address] [id number]- 3990 Jan, [facility] [id number] [place] [address] 48[address]- 7870 Jan, IBS (irritable bowel syndrome) 564.1 [facility] [id number] [address] Jan, [facility] [id number] [place] [address]33- 3297 Jan, [facility] [id number] [address] Jan, Diabetes mellitus without mention of complication, type II or unspecified type, not stated as uncontrolled 250.00 ; Gastroparesis 536.3 and Hypoacusis 389.9 [facility] [id number] [address] Jan, [facility] [id number] [address] Jan, [facility] [id number] [address] Dec, [facility] [id number] [address] Dec, [facility] [id number] [address] Dec, [facility] [id number] [address] Dec, Back pain 724.5 and Gastroparesis 536.3 [facility] [id number] [address] Nov, [facility] [facility] [id number] [id number] Nov, Dental examination V72.2 [facility] [id number] [address] Nov, [facility] [id number] [address] Nov, [facility] [id number] [place] [address] Nov, Depressive disorder, not elsewhere classified 311 and No condition on Burke II V71.09 [facility] [id number] [place] [address] Nov, Diabetes 250.00 and Symptomatic menopausal or female climacteric states 627.2 [facility] [id number] [address] Oct, [facility] [id number] [address] Oct, Lumbar strain 847.2 [facility] [id number] [address] Oct, Gastroparesis 536.3 and Unspecified myalgia and myositis 729.1 [facility] [id number] [address] Aug, [facility] [id number] [place] [address] Aug, [facility] [id number] [address] Jul, [facility] [id number] [address] Jul, [facility] [place] [facility] [address] [id number] [place] [address] Jul, [facility] [place] [facility] [address] [id number] [place] [address] Jul, [facility] [place] [facility] [address] [id number] [place] [address] Jul, [facility] [place] [facility] [address] [id number] [place] [address] Jun, [facility] [place] [facility] [address] [id number] [place] [address] Jun, [facility] [place] [facility] [address] [id number] [place] [address] Jun, [facility] [place] [facility] [address] [id number] [place] [address] May, [facility] [place] [facility] [address] [id number] [place] [address] May, [facility] [place] [facility] [address] [id number] [place] [address] Mar, [facility] [place] [facility] [address] [id number] [place] [address] Mar, [facility] [place] [facility] [address] [id number] [place] [address] Mar, [facility] [place] [facility] [address] [id number] [address] Mar, [facility] [place] [facility] [address] [id number] [place] [address] Mar, [facility] [place] [facility] [address] [id number] [place] [address] Mar, [facility] [place] [facility] [address] [id number] [place] [address] Feb, [facility] [place] [facility] [address] [id number] [place] [address] Feb, [facility] [address] [id number] [place] [address] Nov, [facility] [address] [id number] [place] [address] Nov, [facility] [address] [id number] [place] [address] Nov, [facility] [place] [facility] [address] [id number] [place] [address] Oct, [facility] [address] [id number] [place] [address] September, [facility] [address] [id number] [place] [address] Aug, [facility] [address] [id number] [place] [address] 15 Aug, 2012 [facility] [address] [id number] [place] [address] Aug, [facility] [address] [id number] [place] [address] Aug, [facility] [address] [id number] [place] [address] Aug, [facility] [address] [id number] [place] [address] Aug, [facility] [place] [facility] [address] [id number] [place] [address] Aug, [facility] [place] [facility] [address] [id number] [place] [address]- [address] Aug, [facility] [place] [facility] [address] [id number] [place] [address] Jul, [facility] [place] [facility] [address] [id number] [place] [address] Jul, [facility] [place] [facility] [address] [facility] [id number] [address] Jun, [facility] [id number] [address] Jun, [facility] [id number] [address] Jun, [facility] [id number] [address] Jun, [facility] [id number] [address] Jun, [facility] [id number] [address] Jun, [facility] [id number] [address] Jun, [facility] [id number] [address] May, [facility] [id number] [address] May, [facility] [id number] [address] May, [facility] [address] [id number] [address] May, [facility] [id number] [address] Mar, [facility] [id number] [address] Mar, [facility] [id number] [address] Jan, IMMUNIZATIONS No Known Immunizations SOCIAL HISTORY Never Assessed REASON FOR VISIT Marinol 09/23 PLAN OF CARE VITAL SIGNS MEDICATIONS Medication [...] vomitting-[facility] 03/05/17 Hospitalization History hospital stay [facility] for stomach issues 2016
--- OUTSIDE RECORDS SUMMARY | 2018-01-27 19:56 | XMS REPORT ---
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 Name Role Phone TRISH MCALLISTER Unavailable Unavailable PROBLEMS Type Condition ICD9-CM Code [id number] Code Onset Dates Condition Status SNOMED Code Problem Primary insomnia F51.01 Active 3130553 Problem Reactive depression F32.9 Active 81935827 Problem Asthma exacerbation J45.901 Active 775746482 Problem Irritable bowel syndrome with constipation K58.1 Active 508178986 Problem Back pain M54.9 Active 314395674 Problem Tobacco dependency F17.200 Active 67937864 Problem Low TSH level R94.6 Active 240700212 Problem PTSD (post-traumatic stress disorder) F43.10 Active 25367316 Problem Diabetic polyneuropathy associated with type 2 diabetes mellitus E11.42 Active 64260795 Problem Annual physical exam Z00.00 Active 493071947 Problem Migraine without aura and without status migrainosus, not intractable G43.009 Active 114783232 Problem Gastroparesis K31.84 Active 126815399 Problem care home 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 Z79.4 Active 299933288 Problem Neuropathy G62.9 Active 034494488 Problem Diabetes E11.9 Active 74930105 Problem Uncomplicated asthma, unspecified asthma severity J45.909 Active 204909505 Problem Anorexia R63.0 Active 70006741 Problem Mixed hyperlipidemia E78.2 Active 509040393 Problem Weight loss R63.4 Active 337572452 Problem Type 2 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 Active 31743006 Problem History of colon polyps Z86.010 Active 242313694 ALLERGIES Substance Reaction Event Type Date Status Coumadin vomitied blood Drug Allergy Aug, Active Toradol swells, itch from inside out Drug Allergy Aug, Active Nsaids (non-steroidal Anti-inflammatory Drug) triggers asthma, can't breathe, swells form inside out. Non Drug Allergy Aug, Active ENCOUNTERS Encounter Location Date Diagnosis [place] [id number] [place] [id number] [place] [address] 73735- 9323 Jan, [place] [address] 33235- 7610 Dec, [place] [address] 26740- 5054 Nov, Irritable bowel syndrome with constipation K58.1 ; Uncomplicated asthma, unspecified asthma severity J45.909 and Type 2 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 [facility] [address] [id number] Nov, Dental examination Z01.20 [place] [address] 40741- 8136 Nov, Other dorsalgia M54.89 [place] [address] 75870- 6657 Nov, LLQ pain R10.32 ; Low TSH level R94.6 and Gastroparesis K31.84 [place] [address] 78122- 8895 Nov, Anorexia R63.0 [place] [address] 04452- 7894 Nov, Asthma exacerbation J45.901 [place] [address] 22401- 1406 Oct, PTSD (post-traumatic stress disorder) F43.10 [place] [address] [id number] [place] [address] 72011- 3816 Oct, [place] [address] 08151- 4309 Oct, PTSD (post-traumatic stress disorder) F43.10 and Tobacco dependency F17.200 [place] [address] 08835- 9669 Oct, [facility] [place] [id number] [place] [address] 85542- 8610 Oct, Other dorsalgia M54.89 [facility] [place] [address] 41907- 6213 Oct, Anorexia R63.0 [facility] [place] [address] 00636- 2053 September, PTSD (post-traumatic stress disorder) F43.10 [facility] [place] [address] 32670- 6778 September, Low TSH level R94.6 [place] [address] 04461- 3299 September, Other dorsalgia M54.89 [place] [address] 76435- 4253 September, Annual physical exam Z00.00 and Migraine without aura and without status migrainosus, not intractable G43.009 [place] [address] 50940- 9337 September, Abnormal TSH R94.6 and Dysfunction of left eustachian tube H69.82 [facility] [place] [id number] [place] [address] 18476- 0053 Aug, [facility] [place] [address] 78033- 2479 Aug, Anorexia R63.0 [facility] [id number] [place] [address] [id number] Aug, Dental examination Z01.20 and Xerostomia K11.7 [facility] [place] [address] 21037- 2098 Aug, Neuropathy G62.9 [facility] [place] [address] 56562- 2058 Aug, [facility] [place] [address] [place] [address] 3006 17 Aug, 2017 Other dorsalgia M54.89 [facility] [place] [id number] [place] [address] 12145 2546 16 Aug, 2017 Type 2 diabetes mellitus with diabetic autonomic (poly) 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 ; Diabetic polyneuropathy associated with type 2 diabetes mellitus E11.42 ; Bronchitis J40 ; Gastroparesis K31.84 and Reactive depression F32.9 [facility] [place] [address] 31693 2546 Aug, PTSD (post-traumatic stress disorder) F43.10 [facility] [place] [id number] [place] [address] 52677 2546 Aug, Other dorsalgia M54.89 and Anorexia R63.0 [facility] [place] [address] 93259 2546 Jul, [facility] [place] [address] 14563 2546 Jul, Other dorsalgia M54.89 [facility] [place] [id number] [place] [address] 40650 2546 Jul, [facility] [place] [id number] [place] [address] 61255 2546 Jul, [facility] [place] [id number] [place] [address] 99328 2546 Jul, PTSD (post-traumatic stress disorder) F43.10 [facility] [place] [id number] [place] [address] 02927 2546 Jul, [facility] [place] [id number] [place] [address] 10178 2546 Jul, [facility] [place] [id number] [place] [address] 88520 2546 Jul, [facility] [place] [id number] [place] [address] 26707 2546 Jul, Anorexia R63.0 [facility] [place] [id number] [place] [address] 66049 2546 Jun, [facility] [place] [id number] [place] [address] 35099 2546 Jun, Vaginal discharge N89.8 ; Visit for gynecologic examination Z01.419 and Pelvic pressure in female R10.2 [facility] [place] [address] 02372 2546 Jun, [facility] [place] [id number] [place] [address] 38182 2546 Jun, Other dorsalgia M54.89 [facility] [place] [id number] [place] [address] 99482 2546 Jun, [facility] [place] [id number] [place] [address] 65806- 8116 Jun, [facility] [place] [id number] [place] [address] 08040 2546 Jun, [facility] [place] [id number] [place] [address] 60671 2546 May, Back pain M54.9 [facility] [place] [id number] [place] [address] 52259 2546 May, Anorexia R63.0 [facility] [place] [id number] [place] [address] 72452 2546 May, Other dorsalgia M54.89 [facility] [place] [id number] [place] [address] 21777 2546 May, [facility] [place] [id number] [place] [address] 86624 2546 May, Bronchitis J40 [facility] [place] [id number] [place] [address] 47143 2546 May, Type 2 diabetes mellitus with diabetic autonomic (poly) 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 ; care home 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 Z79.4 ; Back pain M54.9 and Neuropathy G62.9 [facility] [place] [address] 24210- 5048 May, Left breast mass N63.20 [facility] [place] [id number] [place] [address] 08979- 9156 May, [facility] [place] [address] 51038- 7669 Apr, Other dorsalgia M54.89 [facility] [place] [address] 07821- 2681 Apr, Anorexia R63.0 [facility] [place] [address] 15514- 4518 Apr, Anorexia R63.0 [facility] [place] [address] 27827- 7115 Apr, Mass of left breast N63.20 [facility] [place] [id number] [place] [address] 09889- 5912 Apr, [facility] [place] [address] 24907- 8408 Apr, [facility] [place] [id number] [place] [address] 97290- 6730 Apr, Diarrhea of presumed infectious origin A09 [facility] [place] [address] 75153- 0623 Apr, Encounter for immunization Z23 [facility] [place] [address] 39473- 1904 Apr, [facility] [place] [address] 26065- 3270 Mar, Other dorsalgia M54.89 [facility] [place] [id number] [place] [address] 18054- 3052 Mar, [facility] [place] [address] [place] [address]- 0186 Mar, [facility] [place] [id number] [place] [address] 00684- 3793 Mar, Anorexia R63.0 [facility] [place] [id number] [place] [address] 85712- 1773 Mar, [facility] [place] [address] 72328- 6983 Mar, Other dorsalgia M54.89 [facility] [place] [address] 04835- 0088 Mar, [facility] [place] [address] 49239- 0036 Mar, Encounter for immunization Z23 [facility] [place] [address] 67533- 1332 Feb, Anorexia R63.0 [facility] [place] [address] 76697- 4911 Feb, Diabetes E11.9 [facility] [place] [address] 25263- 7178 Feb, Back pain M54.9 and Diabetes E11.9 [facility] [place] [id number] [place] [address] 29277- 9455 Feb, Diabetes E11.9 [facility] [place] [address] 62276- 5741 Feb, Neuropathy G62.9 [facility] [place] [id number] [place] [address] 11374- 8618 Feb, Encounter for immunization Z23 ; Epigastric pain R10.13 ; Weight loss, abnormal R63.4 and Neuropathy G62.9 [facility] [address] [place] [id number] [place] [address] [id number] Feb, [facility] [place] [address] 56827- 3670 Feb, [facility] [place] [id number] [place] [address] 12403- 6002 Feb, Intractable vomiting with nausea, unspecified vomiting type R11.2 [facility] [id number] [place] [address] 05597 -7181 Feb, Chronic nausea R11.0 [facility] [place] [id number] [place] [address] 46671- 1171 Feb, Other dorsalgia M54.89 [facility] [place] [id number] [place] [address] 04130- 5688 Jan, [facility] [place] [id number] [place] [address] 47916- 4107 Jan, [facility] [place] [id number] [place] [address] 19421- 5961 Jan, [facility] [place] [id number] [place] [address] 20795- 0116 Jan, [facility] [place] [id number] [place] [address] 37689- 0924 Jan, Asthma exacerbation J45.901 ; Bronchitis J40 and Neuropathy G62.9 [facility] [place] [id number] [place] [address] 29135- 9604 Jan, Anorexia R63.0 [facility] [place] [id number] [place] [address] 22458- 2572 Jan, Other dorsalgia M54.89 [facility] [place] [id number] [place] [address] 43241- 4660 Dec, [facility] [place] [address] 62032- 4439 Dec, [facility] [place] [id number] [place] [address] 45515- 1234 Dec, Anorexia R63.0 [facility] [place] [id number] [place] [address] 57563- 1133 Dec, Primary insomnia F51.01 [facility] [place] [id number] [place] [address] 25841- 9663 Dec, Other dorsalgia M54.89 [facility] [place] [id number] [place] [address] 37906- 9492 Dec, [facility] [place] [id number] [place] [address] 94448- 1064 Nov, [facility] [place] [id number] [place] [address] 80274- 8831 Nov, [facility] [place] [id number] [place] [address] 79128- 6048 Nov, [facility] [place] [id number] [place] [address] 98825- 2498 Nov, History of colon polyps Z86.010 [facility] [place] [id number] [place] [address] 09842- 6845 Nov, Weight loss R63.4 ; Nausea and vomiting, intractability of vomiting not specified, unspecified vomiting type R11.2 and Abnormal LFTs R79.89 [facility] [place] [id number] [place] [address] 91914- 6425 Nov, [facility] [place] [id number] [place] [address] 59780- 3806 Nov, Neuropathy G62.9 and Pain in right knee M25.561 [facility] [place] [id number] [place] [address] 99851- 5660 Nov, Back pain M54.9 [facility] [place] [id number] [place] [address] 63344- 5695 Nov, [facility] [place] [id number] [place] [address] 54342- 8164 Nov, Bronchitis J40 [facility] [place] [id number] [place] [address] 95967- 2749 Nov, Weight loss R63.4 [facility] [place] [id number] [place] [address] 39822- 7088 Oct, Back pain M54.9 [facility] [place] [id number] [place] [address] 82494- 3073 16 Oct, 2016 [facility] [place] [id number] [place] [address] 23026- 2513 Oct, Back pain M54.9 [facility] [place] [id number] [place] [address] 61857- 1960 Oct, Type 2 diabetes mellitus without complications E11.9 and Bronchitis J40 [facility] [place] [id number] [place] [address] 46626- 9210 Oct, [facility] [place] [id number] [place] [address] 36452- 7119 Oct, [facility] [place] [id number] [place] [address] 02033- 2434 September, Gastroparesis K31.84 ; Type 2 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 and Neuropathy G62.9 [facility] [place] [id number] [place] [address] 05026- 3851 September, Other dorsalgia M54.89 [facility] [place] [id number] [place] [address] 82397- 9859 September, [facility] [place] [id number] [place] [address] 34041- 8837 September, [facility] [place] [id number] [place] [address] 98029- 3753 Aug, Gastroparesis K31.84 and Radicular leg pain M54.10 [facility] [place] [id number] [place] [address] 09273- 0744 Aug, Anorexia R63.0 [facility] [place] [address] [place] [address] 30853- 6636 Aug, Bronchitis J40 [facility] [place] [address] 89275- 4380 Aug, Back pain M54.9 [place] [address] 46025- 8019 04 Aug, 2016 Routine gynecological examination Z01.419 ; Routine screening for STI (sexually transmitted infection) Z11.3 and Yeast infection of the vagina B37.3 [place] [id number] [place] [address] 99753- 1959 Jul, Other dorsalgia M54.89 [place] [address] 86849- 5622 Jul, Diabetes E11.9 and Gastroparesis K31.84 [place] [address] 18642- 7984 Jun, [facility] [place] [address] 53584- 3328 24 Jun, 2016 Back pain M54.9 [place] [address] 91440- 4695 14 Jun, 2016 Neuropathy G62.9 [facility] [address] [id number] Jun, 2016 Encounter for dental examination Z01.20 [place] [id number] [place] [address] 11226- 9415 Jun, Gastroparesis 536.3 and Anorexia R63.0 [place] [address] 24432- 7170 May, Other dorsalgia M54.89 [place] [address] 45902- 8217 May, Periumbilical abdominal pain R10.33 ; Weight loss R63.4 and Gastroparesis K31.84 [place] [id number] [place] [address] 73722- 3345 May, Back pain M54.9 [facility] [place] [address] 59573 2546 Apr, Anorexia R63.0 [facility] [place] [id number] [place] [address] 90901 2546 Apr, Anorexia R63.0 [facility] [place] [address] 80715 2546 Apr, Back pain M54.9 [facility] [place] [address] 10019 2546 15 Apr, 2016 Back pain M54.9 [facility] [place] [id number] [place] [address] 23262 2546 Apr, [facility] [place] [address] 37218 2546 Apr, Bronchitis J40 and Neuropathy G62.9 [facility] [place] [id number] [place] [address] 16140 2546 Apr, Neuropathy G62.9 [facility] [place] [id number] [place] [address] 51419 2546 05 Apr, 2016 [facility] [place] [id number] [place] [id number] 2546 Apr, Back pain M54.9 [facility] [place] [id number] [place] [id number] 2546 Mar, Type 2 diabetes mellitus with diabetic autonomic (poly) 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 [facility] [place] [address] [address] Mar, Type 2 diabetes mellitus without complications E11.9 [facility] [place] [id number] [place] [address] 18702- 5146 Mar, Neuropathy G62.9 [facility] [place] [id number] [place] [address] 22810- 7124 Mar, [facility] [place] [address] [address] Mar, Breast cancer screening Z12.39 [facility] [place] [address] [address]- [address] Mar, Other dorsalgia M54.89 [facility] [place] [address] [address]- [address] Feb, [facility] [place] [address] [address] 30 Jan, 2016 Neuropathy G62.9 ; Type 2 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 ; Uncomplicated asthma, unspecified asthma severity J45.909 and Encounter for immunization Z23 [place] [address] [address] Jan, [place] [address] [address]- [address] Jan, [facility] [place] [address] [address] Dec, [place] [address] [address]- [address] Dec, [facility] [place] [id number] [place] [address] [phone]- [address]659 Nov, [place] [address] [address] Nov, Back pain M54.9 [facility] [place] [address] [address]- [address] Nov, Neuropathy G62.9 ; Mixed hyperlipidemia E78.2 ; Type 2 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 and care home 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 Z79.4 [facility] [place] [id number] [place] [address] 56161- [address]343 Oct, [facility] [place] [id number] [place] [address] [address]- [address]117 Oct, Other dorsalgia M54.89 [facility] [place] [id number] [place] [address] 23483- 2202 September, Primary insomnia F51.01 [facility] [place] [id number] [place] [address] 17958- 7719 September, [facility] [place] [id number] [place] [address] 21897- 7417 Aug, Other dorsalgia M54.89 [facility] [place] [id number] [place] [address] 54353- 8882 Jul, [facility] [place] [id number] [place] [address] 84810- 1277 Jul, Other dorsalgia M54.89 [facility] [place] [id number] [place] [address] 54988- 0650 Jul, Diabetes E11.9 ; Back pain M54.9 ; Neuropathy G62.9 and Gastroparesis K31.84 [facility] [place] [id number] [place] [address] 99524- 0721 Jun, [facility] [place] [id number] [place] [address] 55270- 9044 Jun, Other dorsalgia M54.89 [facility] [place] [id number] [place] [address] 01329- 1477 May, [facility] [place] [id number] [place] [address] 89876- 1141 May, Radicular leg pain M54.10 and Other dorsalgia M54.89 [facility] [place] [id number] [place] [address] 46169- 7270 Apr, [facility] [place] [id number] [place] [address] 76621- 5619 Mar, [facility] [place] [address] [address] 23[address] Mar, [facility] [place] [id number] [place] [address] 67376- 4138 Mar, Radicular leg pain M54.10 [facility] [place] [id number] [place] [address] 20842- 9920 Feb, [facility] [place] [id number] [place] [address] 81170- 7664 Feb, [facility] [place] [id number] [place] [address] 88586- 8578 Feb, [facility] [place] [id number] [place] [address] 61636- 0054 Jan, [facility] [place] [id number] [place] [address] 87581- 1279 Jan, IBS (irritable bowel syndrome) 564.1 [facility] [place] [id number] [place] [address] 66258- 0834 Jan, [facility] [place] [id number] [place] [address] 36583- 5337 Jan, [facility] [place] [id number] [place] [address] 62412- 4850 Jan, Diabetes mellitus without mention of complication, type II or unspecified type, not stated as uncontrolled 250.00 ; Gastroparesis 536.3 and Hypoacusis 389.9 [facility] [place] [address] [address] 5129 Jan, [facility] [place] [id number] [place] [address] 66549- 8836 Jan, [facility] [place] [address] [address] 2076 Dec, [facility] [place] [id number] [place] [address] 71969- 8490 Dec, [facility] [place] [address] [address] 0213 Dec, [facility] [place] [id number] [place] [address] 06237- 2780 Dec, Back pain 724.5 and Gastroparesis 536.3 [facility] [place] [address] [address] 9[address] Nov, [facility] [id number] [id number] Nov, Dental examination V72.2 [facility] [place] [id number] [place] [address] 09098- 5242 Nov, [facility] [place] [id number] [place] [address] 42317- 1638 Nov, [facility] [place] [id number] [place] [address] 80975- 3613 Nov, Depressive disorder, not elsewhere classified 311 and No condition on Holt II V71.09 [facility] [place] [id number] [place] [address] 46581- 6365 Nov, Diabetes 250.00 and Symptomatic menopausal or female climacteric states 627.2 [facility] [place] [address] [address]- 2922 Oct, [facility] [place] [id number] [place] [address] 12539- 0014 Oct, Lumbar strain 847.2 [facility] [place] [id number] [address] 6810 Oct, Gastroparesis 536.3 and Unspecified myalgia and myositis 729.1 [facility] [place] [address] [address]- 6053 Aug, [facility] [place] [address] [address]- 6822 Aug, [facility] [place] [facility] [address] [id number] [place] [address]- 0658 Jul, [facility] [place] [facility] [address] [id number] [place] [address]- 5411 Jul, [facility] [place] [facility] [address] [id number] [place] [address]- 7814 Jul, [facility] [place] [facility] [address] [id number] [place] [address]- 6877 Jul, [facility] [place] [facility] [address] [id number] [place] [address]- 3366 Jul, [facility] [place] [facility] [address] [id number] [place] [address]- 0087 Jun, [facility] [place] [facility] [address] [id number] [place] [address]- 1151 Jun, [facility] [place] [facility] [address] [id number] [place] [address]- 3992 Jun, [facility] [place] [facility] [address] [id number] [place] [address]- 1015 May, [facility] [place] [facility] [address] [id number] [place] [address]- 0977 May, [facility] [place] [facility] [address] [id number] [place] [address]- 5010 Mar, [facility] [place] [facility] [address] [id number] [place] [address]- 7538 Mar, [facility] [place] [facility] [address] [id number] [place] [address]- 1803 Mar, [facility] [place] [facility] [address] [id number] [place] [address]- 6079 Mar, [facility] [place] [facility] [address] [id number] [place] [address]- 6794 Mar, [facility] [place] [facility] [address] [id number] [place] [address]- 8880 Mar, [facility] [address] [id number] [place] [address]- 5427 Feb, [facility] [place] [facility] [address] [id number] [place] [address]- 4103 Feb, [facility] [address] [id number] [place] [address]- 6023 Nov, [facility] [place] [facility] [address] [id number] [place] [address]- 5743 Nov, [facility] [address] [id number] [place] [address]- 5767 Nov, [facility] [place] [facility] [address] [id number] [place] [address]- 2877 Oct, [facility] [place] [facility] [address] [id number] [place] [address]- 1421 September, [facility] [place] [facility] [address] [id number] [place] [address]- 8553 Aug, [facility] [place] [facility] [address] [id number] [place] [address]- 3888 Aug, [facility] [place] [facility] [address] [id number] [place] [address]- 5093 Aug, [facility] [place] [facility] [address] [id number] [place] [address]- 2107 Aug, [facility] [place] [facility] [address] [id number] [address]- 8637 Aug, [facility] [place] [facility] [address] [id number] [place] [address]- 6900 Aug, [facility] [place] [facility] [address] [id number] [place] [address]- 1270 Aug, [facility] [place] [facility] [address] [id number] [place] [address]- 4835 Aug, [facility] [place] [facility] [address] [id number] [place] [address]- 5389 04 Jul, 2012 [facility] [address] [id number] [place] [address]- 2031 Jul, [facility] [place] [facility] [address] [id number] [place] [address] 2546 12 Jun, 2012 [facility] [place] [facility] [address] [id number] [place] [address] 2546 Jun, 2012 [facility] [place] [facility] [address] [id number] [place] [address]- 254 09 Jun, 2012 [facility] [place] [facility] [address] [id number] [place] [address]- 6326 08 Jun, 2012 [facility] [place] [facility] [address] [id number] [place] [address] 2549 Jun, [facility] [place] [facility] [address] [id number] [place] [address]- 2543 Jun, [facility] [place] [facility] [address] [id number] [place] [address]- 4693 Jun, [facility] [place] [facility] [address] [id number] [place] [address]- 6953 May, [facility] [place] [facility] [address] [id number] [place] [address]- 0222 May, [facility] [place] [facility] [address] [id number] [place] [address] 2543 May, [facility] [place] [facility] [address] [id number] [place] [address] 2541 May, [facility] [place] [facility] [address] [id number] [place] [address] 2546 Mar, [facility] [place] [facility] [address] [id number] [place] [address]- 2546 13 Mar, 2012 [facility] [place] [facility] [address] [id number] [place] [address] Jan, IMMUNIZATIONS No Known Immunizations SOCIAL HISTORY Never Assessed REASON FOR VISIT Prophy PLAN OF CARE Activity Details Follow Up mari Reason:enamelplasty VITAL SIGNS Blood pressure systolic 113 mmHg 2017-09-19 Blood pressure diastolic 75 mmHg 2017-09-19 MEDICATIONS Medication Instructions Dosage Frequency Start Date End Date Duration Status Cyclobenzaprine HCl 10 TAKE 1 TABLET BY MOUTH THREE TIMES DAILY 30 Active Atorvastatin Calcium 40 MG TAKE ONE TABLET BY MOUTH ONCE DAILY (LAST REFILL MUST HAVE LABS) 30 Active Comfort Lancets - as directed 8h 30 Mar, 2016 Active Cymbalta 30 mg Orally every morning 2 capsules 30 days Active Multiple Vitamins-Iron - Orally Once a day 1 tablet 24h Active Omeprazole 40 mg 1 CAP(S) ONCE A DAY ORALLY 30 DAYS 30 Active Lyrica 150 MG Orally Twice a day 1 capsule 12h 30 days Active Humalog KwikPen 100 INJECT 5 UNITS SUB-Q THREE TIMES DAILY BOFORE MEALS Active Cyanocobalamin 1000 MCG Orally Once a day 1 tablet 24h Active Microlet Lancets 0 USE DIRECTED THREE TIMES DAILY 30 Active Tizanidine HCl 4 MG Orally 2 times a day 1 tablet 12h 30 Active MiraLax - Orally Once a day as needed 1 packet mixed with 8 ounces of fluid Active Quad Cane - as directed 24h Apr, Active Acetaminophen 500 mg Orally at bedtime 2 capsules Active Promethazine-Codeine 6.25-10 MG/5ML Orally every 6 hrs 5 ml as needed 6h May, Not-Taking ProAir HFA 108 INHALE 2 PUFFS BY MOUTH FOUR TIMES DAILY NEEDED 25 Active Questran Light 4 GM/DOSE Orally Twice a day 1 packet 12h Apr, 05 days Active Xarelto 20 mg 1 Tablet by Oral route 1 time per day Jul, Active Marinol 5 mg Orally Twice a day 1 capsule before lunch and supper 12h 28 days Active Oxycodone-Acetaminophen 10-325 MG Orally 4 times a day 1 tablet as needed 6h Aug, 28 days Active Doxepin HCl 10 MG Orally Once a day 1 capsule at bedtime 24h Aug, 30 day(s) Active Ayden Contour Next Test - subcutaneously 3 times a day test blood sugar 8h Active Linzess 145 MCG Orally Once a day 1 capsule 24h Not-Taking Lantus SoloStar 100 8 units 12h Active Zofran ODT 8 MG DISSOLVE ONE TABLET ON THE TONGUE EVERY 6 HOURS 5 Active RESULTS No Results PROCEDURES Procedure Date Ordered Result Body Site PERIODIC ORAL EXAMINATION September 19, 2017 BITEWINGS - FOUR FILMS September 19, 2017 TOPICAL FLUORIDE VARNISH September 19, 2017 PROPHYLAXIS - ADULT September 19, 2017 INSTRUCTIONS MEDICATIONS ADMINISTERED No Known [...] vomitting-[facility] 03/05/17 Hospitalization History hospital stay at [facility] for stomach issues 2016
--- OUTSIDE RECORDS SUMMARY | 2018-01-27 19:56 | XMS REPORT ---
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 Artist Name Role Phone HORACE HIGGINS Unavailable PROBLEMS Type Condition ICD9-CM Code [id number] Code Onset Dates Condition Status SNOMED Code Problem Primary insomnia F51.01 Active 8407118 Problem Reactive depression F32.9 Active 70542100 Problem Asthma exacerbation J45.901 Active 132070626 Problem Irritable bowel syndrome with constipation K58.1 Active 669147811 Problem Back pain M54.9 Active 124516476 Problem Tobacco dependency F17.200 Active 05605564 Problem Low TSH level R94.6 Active 590164449 Problem PTSD (post-traumatic stress disorder) F43.10 Active 36217629 Problem Diabetic polyneuropathy associated with type 2 diabetes mellitus E11.42 Active 52583653 Problem Annual physical exam Z00.00 Active 591022283 Problem Migraine without aura and without status migrainosus, not intractable G43.009 Active 106440032 Problem Gastroparesis K31.84 Active 590495706 Problem 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 Z79.4 Active 785303166 Problem Neuropathy G62.9 Active 090407669 Problem Diabetes E11.9 Active 50138213 Problem Uncomplicated asthma, unspecified asthma severity J45.909 Active 408052571 Problem Anorexia R63.0 Active 27362147 Problem Mixed hyperlipidemia E78.2 Active 522990036 Problem Weight loss R63.4 Active 223915476 Problem Type 2 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 Active 35101689 Problem History of colon polyps Z86.010 Active 689406390 ALLERGIES No Information ENCOUNTERS Encounter Location Date Diagnosis [facility] [address] [facility] [id number] [address] Jan, [facility] [id number] [address] Dec, [place] [id number] [place] [address] 57035- 2230 Nov, Irritable bowel syndrome with constipation K58.1 ; Uncomplicated asthma, unspecified asthma severity J45.909 and Type 2 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 [facility] [id number] [place] [address] [id number] Nov, Dental examination Z01.20 [place] [address] 60314- 8215 Nov, Other dorsalgia M54.89 [place] [address] 22443- 2594 Nov, LLQ pain R10.32 ; Low TSH level R94.6 and Gastroparesis K31.84 [place] [address] 14479- 9358 Nov, Anorexia R63.0 [place] [address] 89808- 0262 Nov, Asthma exacerbation J45.901 [place] [address] 91572- 6420 Oct, PTSD (post-traumatic stress disorder) F43.10 [place] [id number] [place] [address] 32860- 1193 Oct, [place] [address] 20034- 2397 Oct, PTSD (post-traumatic stress disorder) F43.10 and Tobacco dependency F17.200 [place] [address] 43560- 8625 Oct, [place] [id number] [place] [address] 11304- 7600 Oct, Other dorsalgia M54.89 [place] [address] 32092- 2524 Oct, Anorexia R63.0 [place] [address] 951054- 9803 September, PTSD (post-traumatic stress disorder) F43.10 [place] [address] 63680- 7614 September, Low TSH level R94.6 [place] [address] 42498- 9989 September, Other dorsalgia M54.89 [place] [address] 69847- 1792 September, Annual physical exam Z00.00 and Migraine without aura and without status migrainosus, not intractable G43.009 [place] [address] 43238- 1926 September, Abnormal TSH R94.6 and Dysfunction of left eustachian tube H69.82 [place] [address] 89772- 0629 Aug, [facility] [address] 89331- 4618 Aug, Anorexia R63.0 [facility] [address] [id number] Aug, Dental examination Z01.20 and Xerostomia K11.7 [place] [address] [address]75- 1981 Aug, Neuropathy G62.9 [place] [address] 19817- 1541 Aug, [place] [address] [id number]- 9990 Aug, Other dorsalgia M54.89 [place] [address] 06362- 7687 Aug, Type 2 diabetes mellitus with diabetic autonomic (poly) 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 ; Diabetic polyneuropathy associated with type 2 diabetes mellitus E11.42 ; Bronchitis J40 ; Gastroparesis K31.84 and Reactive depression F32.9 [facility] [id number] [place] [address] 91965 2546 Aug, PTSD (post-traumatic stress disorder) F43.10 [facility] [address] 47143 2546 Aug, Other dorsalgia M54.89 and Anorexia R63.0 [facility] [address] 75233 2546 Jul, [facility] [address] 20870 2546 Jul, Other dorsalgia M54.89 [facility] [address] 40255 2546 Jul, [facility] [id number] [place] [address] 44031 2546 Jul, [facility] [address] 40734 2546 Jul, PTSD (post-traumatic stress disorder) F43.10 [facility] [id number] [place] [address] 12892 2546 Jul, [facility] [id number] [place] [address] 26880 2546 Jul, [facility] [id number] [place] [address] 53437 2546 Jul, [facility] [address] 61812 2546 Jul, Anorexia R63.0 [facility] [id number] [place] [address] 76950 2546 Jun, [facility] [address] [id number]- 2546 Jun, Vaginal discharge N89.8 ; Visit for gynecologic examination Z01.419 and Pelvic pressure in female R10.2 [facility] [address] 45968- 9106 Jun, [facility] [address] 02142- 9536 Jun, Other dorsalgia M54.89 [facility] [address] 99215- 1676 Jun, [facility] [address] 01309- 7826 Jun, [facility] [address] 67596- 9876 Jun, [facility] [address] 62866- 3257 May, Back pain M54.9 [facility] [address] 87713- 5230 May, Anorexia R63.0 [facility] [address] 18530- 7904 May, Other dorsalgia M54.89 [facility] [id number] [place] [address] 62936- 3338 May, [facility] [id number] [place] [address] 17463- 1044 May, Bronchitis J40 [facility] [id number] [place] [address] 90013- 0441 May, Type 2 diabetes mellitus with diabetic autonomic (poly) 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 ; 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 Z79.4 ; Back pain M54.9 and Neuropathy G62.9 [facility] [id number] [place] [address] 72019- 9397 May, Left breast mass N63.20 [facility] [id number] [place] [address] 19941- 7491 May, [facility] [address] 92083- 0666 Apr, Other dorsalgia M54.89 [facility] [address] 88248 2546 Apr, Anorexia R63.0 [facility] [address] 78937 2546 Apr, Anorexia R63.0 [facility] [address] 62086- 4440 Apr, Mass of left breast N63.20 [facility] [id number] [place] [address] 22152 2546 Apr, [facility] [address] 37251- 2957 Apr, [facility] [id number] [place] [address] 51852- 1066 Apr, Diarrhea of presumed infectious origin A09 [facility] [address] 68017- 8032 Apr, Encounter for immunization Z23 [facility] [address] 96492 2546 Apr, [facility] [id number] [place] [address] 55453 2541 Mar, Other dorsalgia M54.89 [facility] [id number] [place] [address] 91980 2546 Mar, [facility] [address] 36383 2546 Mar, [facility] [id number] [place] [address] 50093- 8026 Mar, Anorexia R63.0 [facility] [id number] [place] [address] 85553- 9550 Mar, [facility] [address] 39204- 9455 Mar, Other dorsalgia M54.89 [facility] [address] 16485- 7318 Mar, [facility] [address] 09802- 1646 Mar, Encounter for immunization Z23 [facility] [address] 77390- 4309 Feb, Anorexia R63.0 [facility] [address] 72805- 8557 Feb, Diabetes E11.9 [facility] [address] 70935- 1924 Feb, Back pain M54.9 and Diabetes E11.9 [facility] [address] 70987- 7471 Feb, Diabetes E11.9 [facility] [address] 67398- 5050 Feb, Neuropathy G62.9 [facility] [id number] [place] [address] 82749- 5502 Feb, Encounter for immunization Z23 ; Epigastric pain R10.13 ; Weight loss, abnormal R63.4 and Neuropathy G62.9 [facility] [id number] [place] [address] [id number] Feb, [facility] [address] 05640- 9918 Feb, [facility] [id number] [place] [address] 97639- 8261 Feb, Intractable vomiting with nausea, unspecified vomiting type R11.2 [facility] [id number] [place] [address] 47749 -7792 Feb, Chronic nausea R11.0 [facility] [address] 56028- 2566 Feb, Other dorsalgia M54.89 [facility] [id number] [place] [address] 11947- 7245 Jan, [facility] [address] 21969- 7641 Jan, [facility] [id number] [place] [address] 94027- 9388 Jan, [facility] [id number] [place] [address] 48677- 5759 Jan, [facility] [id number] [place] [address] 28933- 4201 Jan, Asthma exacerbation J45.901 ; Bronchitis J40 and Neuropathy G62.9 [facility] [id number] [place] [address] 26172- 5047 Jan, Anorexia R63.0 [facility] [id number] [place] [address] 91131- 1789 Jan, Other dorsalgia M54.89 [facility] [id number] [place] [address] 36186- 5944 Dec, [facility] [id number] [place] [address] 90112- 3500 Dec, [facility] [id number] [place] [address] 17209- 0901 Dec, Anorexia R63.0 [facility] [id number] [place] [address] 89391- 3597 Dec, Primary insomnia F51.01 [facility] [id number] [place] [address] 51255- 5544 Dec, Other dorsalgia M54.89 [facility] [address] [address]- 8326 Dec, [facility] [id number] [place] [address] 21468- 3352 Nov, [facility] [id number] [place] [address] 52776- 0503 Nov, [facility] [id number] [place] [address] 75705- 0711 Nov, [facility] [id number] [place] [address] 12704- 1518 Nov, History of colon polyps Z86.010 [facility] [id number] [place] [address] 41992- 9068 Nov, Weight loss R63.4 ; Nausea and vomiting, intractability of vomiting not specified, unspecified vomiting type R11.2 and Abnormal LFTs R79.89 [facility] [id number] [place] [address] 44849- 7859 Nov, [facility] [id number] [place] [address] 69206- 9719 Nov, Neuropathy G62.9 and Pain in right knee M25.561 [facility] [id number] [place] [address] 70218- 6331 Nov, Back pain M54.9 [facility] [id number] [place] [address] 20508- 5590 Nov, [facility] [id number] [place] [address] 54576- 9681 Nov, Bronchitis J40 [facility] [id number] [place] [address] 19802- 0621 Nov, Weight loss R63.4 [facility] [id number] [place] [address] 26353- 7449 Oct, Back pain M54.9 [facility] [id number] [place] [address] 99425- 7864 16 Oct, 2016 [facility] [id number] [place] [address] 58124- 0938 14 Oct, 2016 Back pain M54.9 [facility] [id number] [place] [address] 76397- 6446 13 Oct, 2016 Type 2 diabetes mellitus without complications E11.9 and Bronchitis J40 [facility] [id number] [place] [address] 79366- 3813 Oct, [facility] [id number] [place] [address] 79835- 2527 Oct, [facility] [id number] [place] [address] 94642- 5522 September, Gastroparesis K31.84 ; Type 2 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 and Neuropathy G62.9 [facility] [id number] [place] [address] 95881- 7280 September, Other dorsalgia M54.89 [facility] [id number] [place] [address] 57802- 0844 September, [facility] [id number] [place] [address] 25519- 7059 September, [facility] [id number] [place] [address] 32380- 5611 Aug, Gastroparesis K31.84 and Radicular leg pain M54.10 [facility] [id number] [place] [address] 05366- 0385 Aug, Anorexia R63.0 [facility] [id number] [place] [address] 97323- 8041 Aug, Bronchitis J40 [facility] [id number] [place] [address] 22526- 5409 Aug, Back pain M54.9 [facility] [id number] [place] [address] 33277- 2294 04 Aug, 2016 Routine gynecological examination Z01.419 ; Routine screening for STI (sexually transmitted infection) Z11.3 and Yeast infection of the vagina B37.3 [facility] [id number] [place] [address] 06461- 3851 Jul, Other dorsalgia M54.89 [facility] [address] 16819- 2332 Jul, Diabetes E11.9 and Gastroparesis K31.84 [place] [address] 80898- 1344 Jun, [facility] [id number] [place] [address] 72399- 4173 Jun, Back pain M54.9 [facility] [address] 79509- 7528 14 Jun, 2016 Neuropathy G62.9 [facility] [address] [id number] Jun, 2016 Encounter for dental examination Z01.20 [place] [id number] [place] [address] 15143- 2884 01 Jun, 2016 Gastroparesis 536.3 and Anorexia R63.0 [facility] [id number] [place] [address] 13524- 5420 May, Other dorsalgia M54.89 [place] [id number] [place] [address] 02068- 5743 May, Periumbilical abdominal pain R10.33 ; Weight loss R63.4 and Gastroparesis K31.84 [facility] [id number] [place] [address] 51551- 2887 May, Back pain M54.9 [facility] [id number] [place] [address] 43261- 7944 Apr, Anorexia R63.0 [facility] [id number] [place] [address] 32194 2546 Apr, Anorexia R63.0 [facility] [id number] [place] [address] 13286 2546 Apr, Back pain M54.9 [facility] [id number] [place] [address] 73988 2546 15 Apr, 2016 Back pain M54.9 [facility] [id number] [place] [address] 57734 2546 Apr, [facility] [id number] [place] [address] 24139- 8976 Apr, Bronchitis J40 and Neuropathy G62.9 [facility] [id number] [place] [address] 84138 2546 Apr, Neuropathy G62.9 [facility] [id number] [place] [address] 42979 2546 Apr, [facility] [id number] [place] [address] 75463 2543 Apr, Back pain M54.9 [facility] [id number] [place] [address] 99112 2546 Mar, Type 2 diabetes mellitus with diabetic autonomic (poly) 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 [facility] [id number] [place] [address] 63187 2543 Mar, Type 2 diabetes mellitus without complications E11.9 [facility] [id number] [place] [address] 17094 2546 Mar, Neuropathy G62.9 [facility] [id number] [place] [address] 65532 2546 Mar, [facility] [id number] [place] [address] 01635- 0616 Mar, Breast cancer screening Z12.39 [facility] [id number] [place] [address] 27680- 7844 Mar, Other dorsalgia M54.89 [facility] [address] 59541- 4585 Feb, [facility] [address] 42509- 8420 Jan, Neuropathy G62.9 ; Type 2 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 ; Uncomplicated asthma, unspecified asthma severity J45.909 and Encounter for immunization Z23 [place] [address] 61085- 5302 Jan, [place] [address] 93996- 8366 Jan, [facility] [address] 86459- 1807 Dec, [facility] [address] 24301- 2562 Dec, [place] [address] 92166- 4130 Nov, [facility] [address] 54248- 1320 Nov, Back pain M54.9 [place] [address] 47986- 1577 Nov, Neuropathy G62.9 ; Mixed hyperlipidemia E78.2 ; Type 2 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 [address] jail 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 Z79.4 [facility] [address] 51502- 3040 Oct, [place] [address] 11852- 3391 Oct, Other dorsalgia M54.89 [facility] [address] 20150- 9516 September, Primary insomnia F51.01 [facility] [id number] [place] [address] 13061- 8353 September, [facility] [id number] [place] [address] 39026- 7859 Aug, Other dorsalgia M54.89 [facility] [id number] [place] [address] 67264- 9552 Jul, [facility] [id number] [place] [address] 58013- 5806 Jul, Other dorsalgia M54.89 [facility] [id number] [place] [address] 78327- 7992 Jul, Diabetes E11.9 ; Back pain M54.9 ; Neuropathy G62.9 and Gastroparesis K31.84 [facility] [id number] [place] [address] 37183- 5630 Jun, [facility] [id number] [place] [address] 80160- 6999 Jun, Other dorsalgia M54.89 [facility] [id number] [place] [address] 40514- 2562 May, [facility] [id number] [place] [address] 64462- 0509 May, Radicular leg pain M54.10 and Other dorsalgia M54.89 [facility] [id number] [place] [address] 42406- 1588 Apr, [facility] [id number] [place] [address] 94170- 4576 Mar, [facility] [id number] [place] [address] 21062- 4386 Mar, [facility] [id number] [place] [address] 09595- 4370 Mar, Radicular leg pain M54.10 [facility] [id number] [address] Feb, [facility] [id number] [address] Feb, [facility] [id number] [address] Feb, [facility] [id number] [place] [address] [id number]- [id number] Jan, [facility] [id number] [place] [address] 58685- 2388 Jan, IBS (irritable bowel syndrome) 564.1 [facility] [id number] [address] Jan, [facility] [id number] [place] [address] 74542- 2692 Jan, [facility] [id number] [address] Jan, Diabetes mellitus without mention of complication, type II or unspecified type, not stated as uncontrolled 250.00 ; Gastroparesis 536.3 and Hypoacusis 389.9 [facility] [id number] [address] Jan, [facility] [id number] [address] Jan, [facility] [id number] [address] Dec, [facility] [id number] [address] [address] Dec, [facility] [id number] [address] Dec, [facility] [id number] [address] Dec, Back pain 724.5 and Gastroparesis 536.3 [facility] [id number] [address] Nov, [facility] [id number] [id number] Nov, Dental examination V72.2 [facility] [id number] [address] Nov, [facility] [id number] [address] Nov, [facility] [id number] [place] [address] Nov, Depressive disorder, not elsewhere classified 311 and No condition on [place] II V71.09 [facility] [id number] [place] [address] Nov, Diabetes 250.00 and Symptomatic menopausal or female climacteric states 627.2 [facility] [id number] [address] Oct, [facility] [id number] [address] Oct, Lumbar strain 847.2 [facility] [id number] [address] Oct, Gastroparesis 536.3 and Unspecified myalgia and myositis 729.1 [facility] [id number] [address] Aug, [facility] [id number] [place] [address]- [address] Aug, [facility] [id number] [address] Jul, [facility] [id number] [address] Jul, [facility] [place] [facility] [address] [id number] [place] [address] Jul, [facility] [place] [facility] [address] [id number] [place] [address]- [address] Jul, [facility] [place] [facility] [address] [id number] [place] [address]- [address]60 Jul, [facility] [place] [facility] [address] [id number] [place] [address]- 48[address] Jun, [facility] [place] [facility] [address] [id number] [place] [address]- [address] Jun, [facility] [place] [facility] [address] [id number] [place] [address]- [address] Jun, [facility] [place] [facility] [address] [id number] [place] [address] May, [facility] [place] [facility] [address] [id number] [place] [address] May, [facility] [place] [facility] [address] [id number] [place] [address]- [address] Mar, [facility] [place] [facility] [address] [id number] [place] [address] 2497 Mar, [facility] [place] [facility] [address] [id number] [place] [address] 6[address] Mar, [facility] [place] [facility] [address] [id number] [address] Mar, [facility] [place] [facility] [address] [id number] [place] [address]- 1568 Mar, [facility] [place] [facility] [address] [id number] [place] [address] 8868 Mar, [facility] [place] [facility] [address] [id number] [place] [address]- [address] Feb, [facility] [place] [facility] [address] [id number] [place] [address]- [address] Feb, [facility] [address] [id number] [place] [address]- 97[address] Nov, [facility] [address] [id number] [place] [address]- [address] Nov, [facility] [address] [id number] [place] [address] Nov, [facility] [place] [facility] [address] [id number] [place] [address]- 67[address] Oct, [facility] [address] [id number] [place] [address]- [address] September, [facility] [address] [id number] [place] [address]- [address] Aug, [facility] [address] [id number] [place] [address]- [address] 15 Aug, 2012 [facility] [address] [id number] [place] [address]- [address] Aug, [facility] [address] [id number] [place] [address]- [address] Aug, [facility] [address] [id number] [place] [address]- [address] Aug, [facility] [address] [id number] [place] [address]- 7[address] Aug, [facility] [place] [facility] [address] [id number] [place] [address]- 2964 Aug, [facility] [place] [facility] [address] [id number] [place] [address]- 4640 Aug, [facility] [place] [facility] [address] [id number] [place] [address] Jul, [facility] [place] [facility] [address] [id number] [place] [address] Jul, [facility] [place] [facility] [address] [facility] [id number] [address] Jun, [facility] [id number] [address]- [address] Jun, [facility] [id number] [address]- [address] Jun, [facility] [id number] [address]- 2546 Jun, [facility] [id number] [address]- [address] Jun, [facility] [id number] [address] Jun, [facility] [id number] [address]- 33[address] Jun, [facility] [id number] [address]- 1706 May, [facility] [id number] [address]- 8086 May, [facility] [id number] [address]- 0208 May, [facility] [id number] [address]- 8649 May, [facility] [id number] [address]- 7710 Mar, [facility] [id number] [address]- [address] Mar, [facility] [id number] [address] Jan, IMMUNIZATIONS No Known Immunizations SOCIAL HISTORY Never Assessed REASON FOR VISIT Lyrica PLAN OF CARE VITAL SIGNS MEDICATIONS Medication Instructions Dosage Frequency Start Date End Date Duration Status Lyrica 150 MG Orally Twice a day 1 capsule 12h 30 days Active RESULTS No Results PROCEDURES No [...] vomitting-[facility] 03/05/17 Hospitalization History hospital stay at [facility] for stomach issues 2016
--- OUTSIDE RECORDS SUMMARY | 2018-01-27 19:57 | XMS REPORT ---
Author Author HORACE HIGGINS [facility] Address [address] [place] [address] Care Team Providers Care Fourchette Sewer Name Role Phone HORACE HIGGINS Unavailable PROBLEMS Type Condition ICD9-CM Code [id number] Code Onset Dates Condition Status SNOMED Code Problem Primary insomnia F51.01 Active 0777972 Problem Reactive depression F32.9 Active 48888677 Problem Asthma exacerbation J45.901 Active 198043799 Problem Irritable bowel syndrome with constipation K58.1 Active 405793833 Problem Back pain M54.9 Active 947032376 Problem Tobacco dependency F17.200 Active 71950535 Problem Low TSH level R94.6 Active 289081100 Problem PTSD (post-traumatic stress disorder) F43.10 Active 86594504 Problem Diabetic polyneuropathy associated with type 2 diabetes mellitus E11.42 Active 72355362 Problem Annual physical exam Z00.00 Active 686864841 Problem Migraine without aura and without status migrainosus, not intractable G43.009 Active 841661960 Problem Gastroparesis K31.84 Active 975867532 Problem 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 Active 517833069 Problem Neuropathy G62.9 Active 162639992 Problem Diabetes E11.9 Active 75063371 Problem Uncomplicated asthma, unspecified asthma severity J45.909 Active 441364019 Problem Anorexia R63.0 Active 11917295 Problem Mixed hyperlipidemia E78.2 Active 632960242 Problem Weight loss R63.4 Active 953892176 Problem Type 2 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 Active 82014250 Problem History of colon polyps Z86.010 Active 651843769 ALLERGIES No Information ENCOUNTERS Encounter Location Date Diagnosis [facility] [address] [facility] [id number] [address] Jan, [facility] [address] [id number] [address] Dec, [place] [id number] [place] [address] 87273- 3366 Nov, Irritable bowel syndrome with constipation K58.1 ; Uncomplicated asthma, unspecified asthma severity J45.909 and Type 2 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 [facility] [id number] [place] [address] [id number] Nov, Dental examination Z01.20 [place] [address] 17959- 2718 Nov, Other dorsalgia M54.89 [place] [address] 28553- 6726 Nov, LLQ pain R10.32 ; Low TSH level R94.6 and Gastroparesis K31.84 [place] [address] 71650- 3787 Nov, Anorexia R63.0 [place] [address] 14495- 0785 Nov, Asthma exacerbation J45.901 [place] [address] 08003- 3947 Oct, PTSD (post-traumatic stress disorder) F43.10 [place] [id number] [place] [address] 49057- 4738 Oct, [place] [address] 08437- 2792 Oct, PTSD (post-traumatic stress disorder) F43.10 and Tobacco dependency F17.200 [place] [address] 27273- 8294 Oct, [place] [id number] [place] [address] 41833- 1147 Oct, Other dorsalgia M54.89 [place] [address] 96393- 9316 Oct, Anorexia R63.0 [place] [address] 302934- 9847 September, PTSD (post-traumatic stress disorder) F43.10 [place] [address] 02714- 3594 September, Low TSH level R94.6 [place] [address] 19498- 0361 September, Other dorsalgia M54.89 [place] [address] 59512- 1913 September, Annual physical exam Z00.00 and Migraine without aura and without status migrainosus, not intractable G43.009 [place] [address] 31355- 5804 September, Abnormal TSH R94.6 and Dysfunction of left eustachian tube H69.82 [place] [address] 21509- 5229 Aug, [facility] [address] 53405- 6621 Aug, Anorexia R63.0 [facility] [address] [id number] Aug, Dental examination Z01.20 and Xerostomia K11.7 [place] [address] 62287- 2951 Aug, Neuropathy G62.9 [place] [address] 19360- 0462 Aug, [place] [address] [id number]- 6661 Aug, Other dorsalgia M54.89 [place] [address] 67525- 1380 Aug, Type 2 diabetes mellitus with diabetic autonomic (poly) 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 ; Diabetic polyneuropathy associated with type 2 diabetes mellitus E11.42 ; Bronchitis J40 ; Gastroparesis K31.84 and Reactive depression F32.9 [facility] [id number] [place] [address] 56910 2546 Aug, PTSD (post-traumatic stress disorder) F43.10 [facility] [address] 22780 2546 Aug, Other dorsalgia M54.89 and Anorexia R63.0 [facility] [address] 13578 2546 Jul, [facility] [address] 45969 2546 Jul, Other dorsalgia M54.89 [facility] [address] 68749 2546 Jul, [facility] [id number] [place] [address] 51940 2546 Jul, [facility] [address] 33797 2546 Jul, PTSD (post-traumatic stress disorder) F43.10 [facility] [id number] [place] [address] 89575 2546 Jul, [facility] [id number] [place] [address] 85649 2546 Jul, [facility] [id number] [place] [address] 72384 2546 Jul, [facility] [address] 30584 2546 Jul, Anorexia R63.0 [facility] [id number] [place] [address] 33473 2546 Jun, [facility] [address] [id number]- 2546 Jun, Vaginal discharge N89.8 ; Visit for gynecologic examination Z01.419 and Pelvic pressure in female R10.2 [facility] [address] 61344- 3746 Jun, [facility] [address] 64396- 2846 Jun, Other dorsalgia M54.89 [facility] [address] 35971- 9716 Jun, [facility] [address] 67693- 0276 Jun, [facility] [address] 96356- 0067 Jun, [facility] [address] 29971- 4441 May, Back pain M54.9 [facility] [address] 06837- 8202 May, Anorexia R63.0 [facility] [address] 39028- 6509 May, Other dorsalgia M54.89 [facility] [id number] [place] [address] 67929- 9100 May, [facility] [id number] [place] [address] 15950- 7926 May, Bronchitis J40 [facility] [id number] [place] [address] 82269- 7301 May, Type 2 diabetes mellitus with diabetic autonomic (poly) 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 ; 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 ; Back pain M54.9 and Neuropathy G62.9 [facility] [id number] [place] [address] 73694- 8385 May, Left breast mass N63.20 [facility] [id number] [place] [address] 85151- 9396 May, [facility] [address] 94516- 0216 Apr, Other dorsalgia M54.89 [facility] [address] 20858 2546 Apr, Anorexia R63.0 [facility] [address] 78531 2546 Apr, Anorexia R63.0 [facility] [address] 23510- 2166 Apr, Mass of left breast N63.20 [facility] [id number] [place] [address] 31764 2546 Apr, [facility] [address] 67533- 4146 Apr, [facility] [id number] [place] [address] 72272- 5449 Apr, Diarrhea of presumed infectious origin A09 [facility] [address] 61794- 4065 Apr, Encounter for immunization Z23 [facility] [address] 92976 2546 Apr, [facility] [id number] [place] [address] 80294 254 Mar, Other dorsalgia M54.89 [facility] [id number] [place] [address] 34215 2546 Mar, [facility] [address] 17769 2546 Mar, [facility] [id number] [place] [address] 42042- 7566 Mar, Anorexia R63.0 [facility] [id number] [place] [address] 95106- 8579 Mar, [facility] [address] 55473- 2582 Mar, Other dorsalgia M54.89 [facility] [address] 09278- 2449 Mar, [facility] [address] 41385- 3943 Mar, Encounter for immunization Z23 [facility] [address] 44954- 4889 Feb, Anorexia R63.0 [facility] [address] 18655- 6874 Feb, Diabetes E11.9 [facility] [address] 16974- 2411 Feb, Back pain M54.9 and Diabetes E11.9 [facility] [address] 59303- 0918 Feb, Diabetes E11.9 [facility] [address] 50806- 5760 Feb, Neuropathy G62.9 [facility] [id number] [place] [address] 54480- 2488 Feb, Encounter for immunization Z23 ; Epigastric pain R10.13 ; Weight loss, abnormal R63.4 and Neuropathy G62.9 [facility] [id number] [place] [address] [id number] Feb, [facility] [address] 82936- 4064 Feb, [facility] [id number] [place] [address] 97851- 2908 Feb, Intractable vomiting with nausea, unspecified vomiting type R11.2 [facility] [id number] [place] [address] 49570 -6623 Feb, Chronic nausea R11.0 [facility] [address] 60470- 4941 Feb, Other dorsalgia M54.89 [facility] [id number] [place] [address] 50437- 1871 Jan, [facility] [address] 98881- 0274 Jan, [facility] [id number] [place] [address] 34472- 3124 Jan, [facility] [id number] [place] [address] 94274- 9329 Jan, [facility] [id number] [place] [address] 12526- 7600 Jan, Asthma exacerbation J45.901 ; Bronchitis J40 and Neuropathy G62.9 [facility] [id number] [place] [address] 70348- 7309 Jan, Anorexia R63.0 [facility] [id number] [place] [address] 97150- 7702 Jan, Other dorsalgia M54.89 [facility] [id number] [place] [address] 41425- 7958 Dec, [facility] [id number] [place] [address] 69147- 0037 Dec, [facility] [id number] [place] [address] 76617- 2427 Dec, Anorexia R63.0 [facility] [id number] [place] [address] 89810- 7638 Dec, Primary insomnia F51.01 [facility] [id number] [place] [address] 60295- 2409 Dec, Other dorsalgia M54.89 [facility] [address], [place] [address]- 1624 Dec, [facility] [id number] [place] [address] 78094- 6916 Nov, [facility] [id number] [place] [address] 11865- 4331 Nov, [facility] [id number] [place] [address] 69248- 9568 Nov, [facility] [id number] [place] [address] 30355- 0233 Nov, History of colon polyps Z86.010 [facility] [id number] [place] [address] 09012- 0889 Nov, Weight loss R63.4 ; Nausea and vomiting, intractability of vomiting not specified, unspecified vomiting type R11.2 and Abnormal LFTs R79.89 [facility] [id number] [place] [address] 87080- 9113 Nov, [facility] [id number] [place] [address] 20368- 1238 Nov, Neuropathy G62.9 and Pain in right knee M25.561 [facility] [id number] [place] [address] 14276- 3405 Nov, Back pain M54.9 [facility] [id number] [place] [address] 69325- 2800 Nov, [facility] [address] [place] [address] 38284- 9824 Nov, Bronchitis J40 [facility] [id number] [place] [address] 87905- 4071 Nov, Weight loss R63.4 [facility] [address] [place] [address] 13954- 5101 Oct, Back pain M54.9 [facility] [address] [place] [address] 46082- 1174 16 Oct, 2016 [facility] [id number] [place] [address] 86625- 8031 14 Oct, 2016 Back pain M54.9 [facility] [id number] [place] [address] 45793- 0946 13 Oct, 2016 Type 2 diabetes mellitus without complications E11.9 and Bronchitis J40 [facility] [id number] [place] [address] 82275- 4688 Oct, [facility] [id number] [place] [address] 94014- 6989 Oct, [facility] [id number] [place] [address] 12701- 8781 September, Gastroparesis K31.84 ; Type 2 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 and Neuropathy G62.9 [facility] [id number] [place] [address] 62057- 2258 September, Other dorsalgia M54.89 [facility] [id number] [place] [address] 10398- 5090 September, [facility] [id number] [place] [address] 56761- 0541 September, [facility] [id number] [place] [address] 72673- 3405 Aug, Gastroparesis K31.84 and Radicular leg pain M54.10 [facility] [id number] [place] [address] 05710- 3199 Aug, Anorexia R63.0 [facility] [id number] [place] [address] 30218- 1831 Aug, Bronchitis J40 [facility] [id number] [place] [address] 74439- 0564 Aug, Back pain M54.9 [facility] [address] [place] [address] 07453- 1930 04 Aug, 2016 Routine gynecological examination Z01.419 ; Routine screening for STI (sexually transmitted infection) Z11.3 and Yeast infection of the vagina B37.3 [facility] [id number] [place] [address] 27003- 6781 Jul, Other dorsalgia M54.89 [facility] [address] 59089- 5331 Jul, Diabetes E11.9 and Gastroparesis K31.84 [place] [address] 89164- 5011 Jun, [facility] [id number] [place] [address] 00689- 1579 Jun, Back pain M54.9 [facility] [address] 33858- 3567 14 Jun, 2016 Neuropathy G62.9 [facility] [address] [id number] 02 Jun, 2016 Encounter for dental examination Z01.20 [place] [id number] [place] [address] 80568- 4328 01 Jun, 2016 Gastroparesis 536.3 and Anorexia R63.0 [facility] [id number] [place] [address] 23031- 3696 May, Other dorsalgia M54.89 [place] [id number] [place] [address] 15137- 4320 May, Periumbilical abdominal pain R10.33 ; Weight loss R63.4 and Gastroparesis K31.84 [facility] [id number] [place] [address] 92776- 1059 May, Back pain M54.9 [facility] [id number] [place] [address] 75528- 7079 Apr, Anorexia R63.0 [facility] [id number] [place] [address] 71702 2546 Apr, Anorexia R63.0 [facility] [id number] [place] [address] 49665 2546 Apr, Back pain M54.9 [facility] [id number] [place] [address] 80745 2546 15 Apr, 2016 Back pain M54.9 [facility] [id number] [place] [address] 68202 2546 Apr, [facility] [id number] [place] [address] 33548- 1226 Apr, Bronchitis J40 and Neuropathy G62.9 [facility] [id number] [place] [address] 67191 2546 Apr, Neuropathy G62.9 [facility] [id number] [place] [address] 51955 2546 Apr, [facility] [id number] [place] [address] 29594 2547 Apr, Back pain M54.9 [facility] [id number] [place] [address] 03641 2546 Mar, Type 2 diabetes mellitus with diabetic autonomic (poly) 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 [facility] [id number] [place] [address] 52168 2544 Mar, Type 2 diabetes mellitus without complications E11.9 [facility] [id number] [place] [address] 92372 2546 Mar, Neuropathy G62.9 [facility] [id number] [place] [address] 90854 2546 Mar, [facility] [id number] [place] [address] 89911- 9366 Mar, Breast cancer screening Z12.39 [facility] [id number] [place] [address] 56013- 8779 Mar, Other dorsalgia M54.89 [facility] [address] 89842- 2017 Feb, [facility] [address] 29282- 0692 Jan, Neuropathy G62.9 ; Type 2 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 ; Uncomplicated asthma, unspecified asthma severity J45.909 and Encounter for immunization Z23 [place] [address] 13010- 6886 Jan, [place] [address] 52311- 4443 Jan, [facility] [address] 29379- 2613 Dec, [facility] [address] 12277- 2528 Dec, [place] [address] 50693- 1170 Nov, [facility] [address] 41006- 5755 Nov, Back pain M54.9 [place] [address] 96522- 5113 Nov, Neuropathy G62.9 ; Mixed hyperlipidemia E78.2 ; Type 2 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 and 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 [facility] [address] 76484- 1693 Oct, [place] [address] 83074- 6207 Oct, Other dorsalgia M54.89 [facility] [address] 99532- 1048 September, Primary insomnia F51.01 [facility] [id number] [place] [address] 99092- 8657 September, [facility] [id number] [place] [address] 81227- 0013 Aug, Other dorsalgia M54.89 [facility] [id number] [place] [address] 43935- 7728 Jul, [facility] [id number] [place] [address] 50951- 6784 Jul, Other dorsalgia M54.89 [facility] [id number] [place] [address] 67318- 3198 Jul, Diabetes E11.9 ; Back pain M54.9 ; Neuropathy G62.9 and Gastroparesis K31.84 [facility] [id number] [place] [address] 00204- 0756 Jun, [facility] [id number] [place] [address] 09931- 3523 Jun, Other dorsalgia M54.89 [facility] [id number] [place] [address] 99194- 0062 May, [facility] [id number] [place] [address] 45097- 2300 May, Radicular leg pain M54.10 and Other dorsalgia M54.89 [facility] [address] [place] [address] 17926- 9399 Apr, [facility] [id number] [place] [address] 96766- 7509 Mar, [facility] [id number] [place] [address] 95529- 1186 Mar, [facility] [id number] [place] [address] 70050- 9049 Mar, Radicular leg pain M54.10 [facility] [id number] [address] Feb, [facility] [id number] [address] Feb, [facility] [address] Feb, [facility] [id number] [place] [address] [id number] Jan, [facility] [id number] [place] [address] 67579- 4090 Jan, IBS (irritable bowel syndrome) 564.1 [facility] [id number] [address] Jan, [facility] [id number] [place] [address] 28058- 2399 Jan, [facility] [id number] [address] Jan, Diabetes mellitus without mention of complication, type II or unspecified type, not stated as uncontrolled 250.00 ; Gastroparesis 536.3 and Hypoacusis 389.9 [facility] [id number] [address] Jan, [facility] [id number], [place] [address] Jan, [facility] [id number] [place] [address] 8[address] Dec, [facility] [id number] [address] [address] Dec, [facility] [id number] [address] 39[address] Dec, [facility] [id number] [place] [address] 7669 Dec, Back pain 724.5 and Gastroparesis 536.3 [facility] [id number] [address] 39[address] Nov, [facility] [id number] [id number] Nov, Dental examination V72.2 [facility] [id number], [place] [address] Nov, [facility] [id number] [place] [address] 6[address] Nov, [facility] [id number] [place] [address] 95856- 9401 Nov, Depressive disorder, not elsewhere classified 311 and No condition on Garibaldi II V71.09 [facility] [id number] [place] [address] 58307- 6743 Nov, Diabetes 250.00 and Symptomatic menopausal or female climacteric states 627.2 [facility] [id number], [place] [address] Oct, [facility] [id number], [place] [address] Oct, Lumbar strain 847.2 [facility] [id number], [place] [address] 2166 Oct, Gastroparesis 536.3 and Unspecified myalgia and myositis 729.1 [facility] [id number] [place] [address]- 6011 Aug, [facility] [address] [id number] [place] [address] Aug, [facility] [address] [address] Jul, [facility] [address], [place] [address] Jul, [facility] [place] [facility] [address] [id number] [place] [address] Jul, [facility] [place] [facility] [address] [id number] [place] [address] Jul, [facility] [place] [facility] [address] [id number] [place] [address] Jul, [facility] [place] [facility] [address] [id number] [place] [address] Jun, [facility] [place] [facility] [address] [id number] [place] [address] Jun, [facility] [place] [facility] [address] [id number] [place] [address] Jun, [facility] [place] [facility] [address] [id number] [place] [address] May, [facility] [place] [facility] [address] [id number] [place] [address] May, [facility] [place] [facility] [address] [id number] [place] [address] Mar, [facility] [place] [facility] [address] [id number] [place] [address] Mar, [facility] [place] [facility] [address] [id number] [place] [address] Mar, [facility] [place] [facility] [address] [id number], [place] [address] Mar, [facility] [place] [facility] [address] [id number] [place] [address] Mar, [facility] [place] [facility] [address] [id number] [place] [address] Mar, [facility] [place] [facility] [address] [id number] [place] [address] Feb, [facility] [place] [facility] [address] [id number] [place] [address] Feb, [facility] [address] [id number] [place] [address] Nov, [facility] [address] [id number] [place] [address] Nov, [facility] [address] [id number] [place] [address]- [address] Nov, [facility] [place] [facility] [address] [id number] [place] [address] Oct, [facility] [address] [id number] [place] [address]- [address] September, [facility] [address] [id number] [place] [address]- [address] Aug, [facility] [address] [id number] [place] [address] 15 Aug, 2012 [facility] [address] [id number] [place] [address] Aug, [facility] [address] [id number] [place] [address] Aug, [facility] [address] [id number] [place] [address] Aug, [facility] [address] [id number] [place] [address]- [address] Aug, [facility] [place] [facility] [address] [id number] [place] [address]- [address] Aug, [facility] [place] [facility] [address] [id number] [place] [address] Aug, [facility] [place] [facility] [address] [id number] [place] [address] Jul, [facility] [place] [facility] [address] [id number] [place] [address] Jul, [facility] [place] [facility] [address], [place] [address] Jun, [facility] [address], [place] [address] Jun, [facility] [address] [address] [address] Jun, [facility] [address], [place] [address] Jun, [facility] [address] [address] Jun, [facility] [address], [place] [address] Jun, [facility] [address], [place] [address] Jun, [facility] [address], [place] [address] May, [facility] [address], [place] [address] May, [facility] [address], [place] [address] May, [facility] [address], [place] [address] May, [facility] [id number] [address] Mar, [facility] [address], [place] [address] Mar, [facility] [address], [place] [address] Jan, IMMUNIZATIONS No Known Immunizations SOCIAL HISTORY Never Assessed REASON FOR VISIT LVM PLAN OF CARE VITAL SIGNS MEDICATIONS Unknown [...]
--- OUTSIDE RECORDS SUMMARY | 2018-01-27 19:58 | XMS REPORT ---
Author Author HORACE HIGGINS [facility] Address [address] [place] [address] Care Team Providers Care Clarifier Name Role Phone HORACE HIGGINS Unavailable PROBLEMS Type Condition ICD9-CM Code [id number] Code Onset Dates Condition Status SNOMED Code Problem Primary insomnia F51.01 Active 6783329 Problem Reactive depression F32.9 Active 01447557 Problem Asthma exacerbation J45.901 Active 499456941 Problem Irritable bowel syndrome with constipation K58.1 Active 226632196 Problem Back pain M54.9 Active 225061056 Problem Tobacco dependency F17.200 Active 03536341 Problem Low TSH level R94.6 Active 080059055 Problem PTSD (post-traumatic stress disorder) F43.10 Active 85126669 Problem Diabetic polyneuropathy associated with type 2 diabetes mellitus E11.42 Active 39453970 Problem Annual physical exam Z00.00 Active 253813476 Problem Migraine without aura and without status migrainosus, not intractable G43.009 Active 110549787 Problem Gastroparesis K31.84 Active 582982967 Problem 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 Z79.4 Active 469818122 Problem Neuropathy G62.9 Active 779057080 Problem Diabetes E11.9 Active 86620570 Problem Uncomplicated asthma, unspecified asthma severity J45.909 Active 263115038 Problem Anorexia R63.0 Active 95814332 Problem Mixed hyperlipidemia E78.2 Active 850974666 Problem Weight loss R63.4 Active 672142020 Problem Type 2 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 Active 24836379 Problem History of colon polyps Z86.010 Active 555980312 ALLERGIES No Information ENCOUNTERS Encounter Location Date Diagnosis [facility] [address] [facility] [id number] [address] Jan, [facility] [address] [id number] [address] Dec, [place] [id number] [place] [address] 75384- 9839 Nov, Irritable bowel syndrome with constipation K58.1 ; Uncomplicated asthma, unspecified asthma severity J45.909 and Type 2 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 [facility] [id number] [place] [address] [id number] Nov, Dental examination Z01.20 [place] [address] 35065- 0083 Nov, Other dorsalgia M54.89 [place] [address] 63951- 8087 Nov, LLQ pain R10.32 ; Low TSH level R94.6 and Gastroparesis K31.84 [place] [address] 04372- 2430 Nov, Anorexia R63.0 [place] [address] 31608- 3608 Nov, Asthma exacerbation J45.901 [place] [address] 44038- 7747 Oct, PTSD (post-traumatic stress disorder) F43.10 [place] [id number] [place] [address] 08100- 7127 Oct, [place] [address] 24941- 2447 Oct, PTSD (post-traumatic stress disorder) F43.10 and Tobacco dependency F17.200 [place] [address] 56419- 8833 Oct, [place] [id number] [place] [address] 74148- 4056 Oct, Other dorsalgia M54.89 [place] [address] 53648- 5104 Oct, Anorexia R63.0 [place] [address] 894896- 0769 September, PTSD (post-traumatic stress disorder) F43.10 [place] [address] 69561- 6380 September, Low TSH level R94.6 [place] [address] 70067- 8297 September, Other dorsalgia M54.89 [place] [address] 27936- 0272 September, Annual physical exam Z00.00 and Migraine without aura and without status migrainosus, not intractable G43.009 [place] [address] 11630- 8313 September, Abnormal TSH R94.6 and Dysfunction of left eustachian tube H69.82 [place] [address] 45709- 7462 Aug, [facility] [address] 40850- 1931 Aug, Anorexia R63.0 [facility] [address] [id number] Aug, Dental examination Z01.20 and Xerostomia K11.7 [place] [address] 80830- 7944 Aug, Neuropathy G62.9 [place] [address] 64098- 3809 Aug, [place] [address] [id number]- 1037 Aug, Other dorsalgia M54.89 [place] [address] 51159- 9663 Aug, Type 2 diabetes mellitus with diabetic autonomic (poly) 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 ; Diabetic polyneuropathy associated with type 2 diabetes mellitus E11.42 ; Bronchitis J40 ; Gastroparesis K31.84 and Reactive depression F32.9 [facility] [id number] [place] [address] 96637 2546 Aug, PTSD (post-traumatic stress disorder) F43.10 [facility] [address] 41962 2546 Aug, Other dorsalgia M54.89 and Anorexia R63.0 [facility] [address] 28824 2546 Jul, [facility] [address] 52589 2546 Jul, Other dorsalgia M54.89 [facility] [address] 28255 2546 Jul, [facility] [id number] [place] [address] 61195 2546 Jul, [facility] [address] 42728 2546 Jul, PTSD (post-traumatic stress disorder) F43.10 [facility] [id number] [place] [address] 47672 2546 Jul, [facility] [id number] [place] [address] 37335 2546 Jul, [facility] [id number] [place] [address] 87784 2546 Jul, [facility] [address] 95567 2546 Jul, Anorexia R63.0 [facility] [id number] [place] [address] 14839 2546 Jun, [facility] [address] [id number]- 2546 Jun, Vaginal discharge N89.8 ; Visit for gynecologic examination Z01.419 and Pelvic pressure in female R10.2 [facility] [address] 21657- 9306 Jun, [facility] [address] 28789- 6116 Jun, Other dorsalgia M54.89 [facility] [address] 78686- 6876 Jun, [facility] [address] 35532- 2846 Jun, [facility] [address] 97619- 8826 Jun, [facility] [address] 96505- 2253 May, Back pain M54.9 [facility] [address] 83938- 7198 May, Anorexia R63.0 [facility] [address] 59542- 3931 May, Other dorsalgia M54.89 [facility] [id number] [place] [address] 04305- 3515 May, [facility] [id number] [place] [address] 20220- 3071 May, Bronchitis J40 [facility] [id number] [place] [address] 84305- 2692 May, Type 2 diabetes mellitus with diabetic autonomic (poly) 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 ; buttermaker 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 Z79.4 ; Back pain M54.9 and Neuropathy G62.9 [facility] [id number] [place] [address] 54455- 4230 May, Left breast mass N63.20 [facility] [id number] [place] [address] 87659- 6830 May, [facility] [address] 18990- 4786 Apr, Other dorsalgia M54.89 [facility] [address] 48681 2546 Apr, Anorexia R63.0 [facility] [address] 97717 2546 Apr, Anorexia R63.0 [facility] [address] 59066- 7573 Apr, Mass of left breast N63.20 [facility] [id number] [place] [address] 16928 2546 Apr, [facility] [address] 23794- 5110 Apr, [facility] [id number] [place] [address] 08861- 7901 Apr, Diarrhea of presumed infectious origin A09 [facility] [address] 18688- 5005 Apr, Encounter for immunization Z23 [facility] [address] 33875 2546 Apr, [facility] [id number] [place] [address] 19836 2547 Mar, Other dorsalgia M54.89 [facility] [id number] [place] [address] 84397 2546 Mar, [facility] [address] 15161 2546 Mar, [facility] [id number] [place] [address] 76381- 5176 Mar, Anorexia R63.0 [facility] [id number] [place] [address] 61161- 8636 Mar, [facility] [address] 05103- 6056 Mar, Other dorsalgia M54.89 [facility] [address] 36140- 9560 Mar, [facility] [address] 70571- 2657 Mar, Encounter for immunization Z23 [facility] [address] 02158- 7784 Feb, Anorexia R63.0 [facility] [address] 02694- 0608 Feb, Diabetes E11.9 [facility] [address] 33143- 8288 Feb, Back pain M54.9 and Diabetes E11.9 [facility] [address] 92347- 0322 Feb, Diabetes E11.9 [facility] [address] 33461- 4027 Feb, Neuropathy G62.9 [facility] [id number] [place] [address] 17229- 9052 Feb, Encounter for immunization Z23 ; Epigastric pain R10.13 ; Weight loss, abnormal R63.4 and Neuropathy G62.9 [facility] [place] [id number] [place] [address] [id number] Feb, [facility] [address] 28447- 8791 Feb, [facility] [id number] [place] [address] 79271- 0453 Feb, Intractable vomiting with nausea, unspecified vomiting type R11.2 [facility] [id number] [place] [address] 28991 -4059 Feb, Chronic nausea R11.0 [facility] [address] 50959- 7012 Feb, Other dorsalgia M54.89 [facility] [id number] [place] [address] 30759- 2147 Jan, [facility] [address] 21345- 8137 Jan, [facility] [id number] [place] [address] 77265- 8134 Jan, [facility] [id number] [place] [address] 67769- 3718 Jan, [facility] [id number] [place] [address] 01101- 2863 Jan, Asthma exacerbation J45.901 ; Bronchitis J40 and Neuropathy G62.9 [facility] [id number] [place] [address] 00248- 0813 Jan, Anorexia R63.0 [facility] [id number] [place] [address] 53036- 4610 Jan, Other dorsalgia M54.89 [facility] [id number] [place] [address] 56523- 1785 Dec, [facility] [id number] [place] [address] 79468- 6495 Dec, [facility] [id number] [place] [address] 71616- 5627 Dec, Anorexia R63.0 [facility] [id number] [place] [address] 95787- 8168 Dec, Primary insomnia F51.01 [facility] [id number] [place] [address] 84142- 9812 Dec, Other dorsalgia M54.89 [facility] [address], [place] [address]- 7501 Dec, [facility] [id number] [place] [address] 92745- 2579 Nov, [facility] [id number] [place] [address] 60538- 9774 Nov, [facility] [id number] [place] [address] 88075- 4307 Nov, [facility] [id number] [place] [address] 99726- 1983 Nov, History of colon polyps Z86.010 [facility] [id number] [place] [address] 22513- 0294 Nov, Weight loss R63.4 ; Nausea and vomiting, intractability of vomiting not specified, unspecified vomiting type R11.2 and Abnormal LFTs R79.89 [facility] [id number] [place] [address] 99825- 4228 Nov, [facility] [id number] [place] [address] 39888- 7708 Nov, Neuropathy G62.9 and Pain in right knee M25.561 [facility] [id number] [place] [address] 50274- 3248 Nov, Back pain M54.9 [facility] [id number] [place] [address] 04114- 6346 Nov, [facility] [id number] [place] [address] 20186- 7095 Nov, Bronchitis J40 [facility] [id number] [place] [address] 20479- 1024 Nov, Weight loss R63.4 [facility] [id number] [place] [address] 20103- 3836 Oct, Back pain M54.9 [facility] [id number] [place] [address] 93819- 5773 16 Oct, 2016 [facility] [id number] [place] [address] 33344- 1169 14 Oct, 2016 Back pain M54.9 [facility] [id number] [place] [address] 76954- 2460 13 Oct, 2016 Type 2 diabetes mellitus without complications E11.9 and Bronchitis J40 [facility] [id number] [place] [address] 22736- 4282 Oct, [facility] [id number] [place] [address] 99367- 4774 Oct, [facility] [id number] [place] [address] 14403- 9067 September, Gastroparesis K31.84 ; Type 2 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 and Neuropathy G62.9 [facility] [id number] [place] [address] 00502- 4232 September, Other dorsalgia M54.89 [facility] [id number] [place] [address] 42346- 0697 September, [facility] [id number] [place] [address] 21806- 2060 September, [facility] [id number] [place] [address] 79336- 9625 Aug, Gastroparesis K31.84 and Radicular leg pain M54.10 [facility] [id number] [place] [address] 48154- 1587 Aug, Anorexia R63.0 [facility] [id number] [place] [address] 52039- 6060 Aug, Bronchitis J40 [facility] [id number] [place] [address] 98422- 8710 Aug, Back pain M54.9 [facility] [address] [place] [address] 96092- 7916 04 Aug, 2016 Routine gynecological examination Z01.419 ; Routine screening for STI (sexually transmitted infection) Z11.3 and Yeast infection of the vagina B37.3 [facility] [id number] [place] [address] 05976- 1943 Jul, Other dorsalgia M54.89 [facility] [address] 11030- 9521 Jul, Diabetes E11.9 and Gastroparesis K31.84 [place] [address] 30708- 8469 Jun, [facility] [id number] [place] [address] 77073- 6769 Jun, Back pain M54.9 [facility] [address] 25053- 0079 14 Jun, 2016 Neuropathy G62.9 [facility] [address] [id number] 02 Jun, 2016 Encounter for dental examination Z01.20 [place] [id number] [place] [address] 08900- 4894 01 Jun, 2016 Gastroparesis 536.3 and Anorexia R63.0 [facility] [id number] [place] [address] 41901- 4983 May, Other dorsalgia M54.89 [place] [id number] [place] [address] 89249- 2742 May, Periumbilical abdominal pain R10.33 ; Weight loss R63.4 and Gastroparesis K31.84 [facility] [id number] [place] [address] 81995- 7719 May, Back pain M54.9 [facility] [id number] [place] [address] 36849- 1461 Apr, Anorexia R63.0 [facility] [id number] [place] [address] 92508 2546 Apr, Anorexia R63.0 [facility] [id number] [place] [address] 13124 2546 Apr, Back pain M54.9 [facility] [id number] [place] [address] 71425 2546 15 Apr, 2016 Back pain M54.9 [facility] [id number] [place] [address] 94431 2546 Apr, [facility] [id number] [place] [address] 83888- 1076 Apr, Bronchitis J40 and Neuropathy G62.9 [facility] [id number] [place] [address] 56579 2546 Apr, Neuropathy G62.9 [facility] [id number] [place] [address] 12783 2546 Apr, [facility] [id number] [place] [address] 17683 2545 Apr, Back pain M54.9 [facility] [id number] [place] [address] 09881 2546 Mar, Type 2 diabetes mellitus with diabetic autonomic (poly) 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 [facility] [id number] [place] [address] 84359 2549 Mar, Type 2 diabetes mellitus without complications E11.9 [facility] [id number] [place] [address] 46953 2546 Mar, Neuropathy G62.9 [facility] [id number] [place] [address] 72656 2546 Mar, [facility] [id number] [place] [address] 76374- 5936 Mar, Breast cancer screening Z12.39 [facility] [id number] [place] [address] 18764- 4156 Mar, Other dorsalgia M54.89 [facility] [address] 85895- 3019 Feb, [facility] [address] 11134- 0916 Jan, Neuropathy G62.9 ; Type 2 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 ; Uncomplicated asthma, unspecified asthma severity J45.909 and Encounter for immunization Z23 [place] [address] 17364- 4868 Jan, [place] [address] 60381- 7016 Jan, [facility] [address] 38195- 9674 Dec, [facility] [address] 75239- 7815 Dec, [place] [address] 31935- 8051 Nov, [facility] [address] 06044- 5337 Nov, Back pain M54.9 [place] [address] 26883- 5726 Nov, Neuropathy G62.9 ; Mixed hyperlipidemia E78.2 ; Type 2 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 and detention 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 Z79.4 [facility] [address] 37299- 6462 Oct, [place] [address] 64441- 9926 Oct, Other dorsalgia M54.89 [facility] [address] 29450- 2780 September, Primary insomnia F51.01 [facility] [id number] [place] [address] 21323- 2656 September, [facility] [id number] [place] [address] 59666- 1731 Aug, Other dorsalgia M54.89 [facility] [id number] [place] [address] 53251- 5179 Jul, [facility] [id number] [place] [address] 62749- 7551 Jul, Other dorsalgia M54.89 [facility] [id number] [place] [address] 80231- 7928 Jul, Diabetes E11.9 ; Back pain M54.9 ; Neuropathy G62.9 and Gastroparesis K31.84 [facility] [id number] [place] [address] 84037- 3019 Jun, [facility] [id number] [place] [address] 43152- 0126 Jun, Other dorsalgia M54.89 [facility] [id number] [place] [address] 45098- 5851 May, [facility] [id number] [place] [address] 43697- 1701 May, Radicular leg pain M54.10 and Other dorsalgia M54.89 [facility] [id number] [place] [address] 17547- 4187 Apr, [facility] [id number] [place] [address] 35019- 1981 Mar, [facility] [id number] [place] [address] 28223- 9100 Mar, [facility] [id number] [place] [address] 64783- 4961 Mar, Radicular leg pain M54.10 [facility] [address] [address]- 1087 Feb, [facility] [address] [address]- 7616 Feb, [facility] [address]- 9395 Feb, [facility] [id number] [place] [address] 757158- 8606 Jan, [facility] [address] [place] [address] 97538- 6704 Jan, IBS (irritable bowel syndrome) 564.1 [facility] [id number] [address]- 3819 Jan, [facility] [id number] [place] [address] 22794- 5725 Jan, [facility] [address] [place] [address]- 0356 Jan, Diabetes mellitus without mention of complication, type II or unspecified type, not stated as uncontrolled 250.00 ; Gastroparesis 536.3 and Hypoacusis 389.9 [facility] [address] [address]- 3609 Jan, [facility] [address] [address]- 7492 Jan, [facility] [address], [place] [address]- 6399 Dec, [facility] [id number]- 5789 Dec, [facility] [address]- 3950 Dec, [facility] [address] [place] [address]- 4157 Dec, Back pain 724.5 and Gastroparesis 536.3 [facility] [id number] [address] Nov, [facility] [address] [id number] [id number] Nov, Dental examination V72.2 [facility] [address], [place] [address] Nov, [facility] [address], [place] [address] Nov, [facility] [id number] [place] [address] Nov, Depressive disorder, not elsewhere classified 311 and No condition on [place] II V71.09 [facility] [id number] [place] [address] Nov, Diabetes 250.00 and Symptomatic menopausal or female climacteric states 627.2 [facility] [address], [place] [address] Oct, [facility] [address], [place] [address] Oct, Lumbar strain 847.2 [facility] [address], [place] [address] Oct, Gastroparesis 536.3 and Unspecified myalgia and myositis 729.1 [facility] [address], [place] [address] Aug, [facility] [id number] [place] [address] Aug, [facility] [address], [place] [address] Jul, [facility] [address], [place] [address] Jul, [facility] [place] [facility] [address] [id number] [place] [address] Jul, [facility] [place] [facility] [address] [id number] [place] [address] Jul, [facility] [place] [facility] [address] [id number] [place] [address] Jul, [facility] [place] [facility] [address] [id number] [place] [address] Jun, [facility] [place] [facility] [address] [id number] [place] [address] Jun, [facility] [place] [facility] [address] [id number] [place] [address] Jun, [facility] [place] [facility] [address] [id number] [place] [address] May, [facility] [place] [facility] [address] [id number] [place] [address] May, [facility] [place] [facility] [address] [id number] [place] [address] Mar, [facility] [place] [facility] [address] [id number] [place] [address] Mar, [facility] [place] [facility] [address] [id number] [place] [address] Mar, [facility] [place] [facility] [address] [id number], [place] [address] Mar, [facility] [place] [facility] [address] [id number] [place] [address] Mar, [facility] [place] [facility] [address] [id number] [place] [address] Mar, [facility] [place] [facility] [address] [id number] [place] [address] Feb, [facility] [place] [facility] [address] [id number] [place] [address] Feb, [facility] [address] [id number] [place] [address] Nov, [facility] [address] [id number] [place] [address] Nov, [facility] [address] [id number] [place] [address] Nov, [facility] [place] [facility] [address] [id number] [place] [address] Oct, [facility] [address] [id number] [place] [address] September, [facility] [address] [id number] [place] [address] Aug, [facility] [address] [id number] [place] [address] 15 Aug, 2012 [facility] [address] [id number] [place] [address] Aug, [facility] [address] [id number] [place] [address] Aug, [facility] [address] [id number] [place] [address] Aug, [facility] [address] [id number] [place] [address] Aug, [facility] [place] [facility] [address] [id number] [place] [address] Aug, [facility] [place] [facility] [address] [id number] [place] [address] Aug, [facility] [place] [facility] [address] [id number] [place] [address] Jul, [facility] [place] [facility] [address] [id number] [place] Jul, [facility] [place] [facility] [id number], [place] [address] Jun, [facility] [id number], [place] [address] Jun, [facility] [id number], [place] [address] Jun, [facility] [id number], [place] [address] Jun, [facility] [id number], [place] [address] Jun, [facility] [id number], [place] [address] Jun, [facility] [id number], [place] [address] Jun, [facility] [id number], [place] [address] May, [facility] [id number], [place] [address] May, [facility] [id number], [place] [address] May, [facility] [id number], [place] [address] May, [facility] [id number] [address] Mar, [facility] [id number], [place] [address] Mar, [facility] [id number], [place] [address] Jan, IMMUNIZATIONS No Known Immunizations SOCIAL HISTORY Never Assessed REASON FOR VISIT Oxycodone 09/12 PLAN OF CARE VITAL SIGNS MEDICATIONS Medication Instructions Dosage Frequency Start Date End Date Duration Status Oxycodone-Acetaminophen 10-325 MG Orally 4 times a day 1 tablet as needed 6h Aug, 28 days Active RESULTS No Results PROCEDURES [...] vomitting-[facility] 03/05/17 Hospitalization History hospital stay at [facility] for stomach issues 2016
--- OUTSIDE RECORDS SUMMARY | 2018-01-27 19:59 | XMS REPORT ---
Author Author DELFIN RACH Organization [facility] Address [address] [place] [address] Care Team Providers Care Support Manager Name Role Phone EDWINBERNADETTE CROSSA Unavailable PROBLEMS Type Condition ICD9-CM Code CMY03-YJ Code Onset Dates Condition Status SNOMED Code Problem Primary insomnia F51.01 Active 4557576 Problem Reactive depression F32.9 Active 44810713 Problem Asthma exacerbation J45.901 Active 722406738 Problem Irritable bowel syndrome with constipation K58.1 Active 711330968 Problem Back pain M54.9 Active 084115234 Problem Tobacco dependency F17.200 Active 46413111 Problem Low TSH level R94.6 Active 755760374 Problem PTSD (post-traumatic stress disorder) F43.10 Active 70849139 Problem Diabetic polyneuropathy associated with type 2 diabetes mellitus E11.42 Active 26222286 Problem Annual physical exam Z00.00 Active 772570476 Problem Migraine without aura and without status migrainosus, not intractable G43.009 Active 633974012 Problem Gastroparesis K31.84 Active 693301135 Problem nursing home 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 Z79.4 Active 706539930 Problem Neuropathy G62.9 Active 440041229 Problem Diabetes E11.9 Active 76930858 Problem Uncomplicated asthma, unspecified asthma severity J45.909 Active 023337344 Problem Anorexia R63.0 Active 90853631 Problem Mixed hyperlipidemia E78.2 Active 459089481 Problem Weight loss R63.4 Active 326073747 Problem Type 2 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 Active 02173232 Problem History of colon polyps Z86.010 Active 283591274 ALLERGIES Substance Reaction Event Type Date Status Coumadin vomitied blood Drug Allergy Aug, Active Toradol swells, itch from inside out Drug Allergy Aug, Active Nsaids (non-steroidal Anti-inflammatory Drug) triggers asthma, can't breathe, swells form inside out. Non Drug Allergy 12 Aug, 2018 Active ENCOUNTERS Encounter Location Date Diagnosis [facility] [id number] [place] [address] 37276- 1863 Jan, [facility] [facility] [address] 30583- 7177 Dec, [facility] [address] 34290- 3643 Nov, Irritable bowel syndrome with constipation K58.1 ; Uncomplicated asthma, unspecified asthma severity J45.909 and Type 2 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 [facility] [address] [id number] Nov, Dental examination Z01.20 [place] [address] 92178- 5813 Nov, Other dorsalgia M54.89 [facility] [address] 60243- 0826 Nov, LLQ pain R10.32 ; Low TSH level R94.6 and Gastroparesis K31.84 [facility] [facility] [address] 55223- 5876 Nov, Anorexia R63.0 [facility] [address] 92561- 6007 Nov, Asthma exacerbation J45.901 [place] [address] 46408- 8906 Oct, PTSD (post-traumatic stress disorder) F43.10 [place] [address] 36411- 5677 Oct, [facility] [address] 19981- 7915 Oct, PTSD (post-traumatic stress disorder) F43.10 and Tobacco dependency F17.200 [place] [address] 64343- 4647 Oct, [facility] [id number] [place] [address] 93513- 9151 Oct, Other dorsalgia M54.89 [facility] [id number] [place] [address] 08305- 0035 Oct, Anorexia R63.0 [facility] [address] 11162- 8918 September, PTSD (post-traumatic stress disorder) F43.10 [place] [address] 743063- 5943 September, Low TSH level R94.6 [place] [address] 13410- 9336 September, Other dorsalgia M54.89 [place] [address] 20578- 0047 September, Annual physical exam Z00.00 and Migraine without aura and without status migrainosus, not intractable G43.009 [place] [address] 58190- 3245 September, Abnormal TSH R94.6 and Dysfunction of left eustachian tube H69.82 [facility] [id number] [place] [address] 46621- 4951 Aug, [facility] [id number] [place] [address] 85158- 8188 Aug, Anorexia R63.0 [facility] [address] [id number] Aug, Dental examination Z01.20 and Xerostomia K11.7 [facility] [id number] [place] [address] 85711- 8116 Aug, Neuropathy G62.9 [facility] [address] 48182- 4056 Aug, [facility] [id number] [place] [address] 29528- 6241 Aug, Other dorsalgia M54.89 [facility] [id number] [place] [address] 60736 2546 Aug, Type 2 diabetes mellitus with diabetic autonomic (poly) 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 ; Diabetic polyneuropathy associated with type 2 diabetes mellitus E11.42 ; Bronchitis J40 ; Gastroparesis K31.84 and Reactive depression F32.9 [facility] [id number] [place] [address] 73036- 5246 Aug, PTSD (post-traumatic stress disorder) F43.10 [facility] [id number] [place] [address] 56718- 7626 Aug, Other dorsalgia M54.89 and Anorexia R63.0 [facility] [address] 62893- 5246 Jul, [facility] [id number] [place] [address] 77552- 5709 Jul, Other dorsalgia M54.89 [facility] [id number] [place] [address] 04593- 4086 Jul, [facility] [id number] [place] [address] 85659- 9805 Jul, [facility] [id number] [place] [address] 74726- 5564 Jul, PTSD (post-traumatic stress disorder) F43.10 [facility] [id number] [place] [address] 05489- 4616 Jul, [facility] [id number] [place] [address] 09259- 2546 Jul, [facility] [id number] [place] [address] 06941- 8791 Jul, [facility] [id number] [place] [address] 97640- 5528 Jul, Anorexia R63.0 [facility] [id number] [place] [address] 77245 2546 Jun, [facility] [id number] [place] [address] 81592 2546 Jun, Vaginal discharge N89.8 ; Visit for gynecologic examination Z01.419 and Pelvic pressure in female R10.2 [facility] [address] 95547 2546 Jun, [facility] [address] 38075- 5956 Jun, Other dorsalgia M54.89 [facility] [address] 53725- 7796 16 Jun, 2017 [facility] [address] 96541- 4966 Jun, [facility] [id number] [place] [address] 34968- 4820 Jun, [facility] [address] 85924- 2476 May, Back pain M54.9 [facility] [address] 32761 2546 May, Anorexia R63.0 [facility] [id number] [place] [address] 39315 2546 May, Other dorsalgia M54.89 [facility] [id number] [place] [address] 88212 2546 May, [facility] [id number] [place] [address] 39617 2546 May, Bronchitis J40 [facility] [id number] [place] [address] 60663- 1456 May, Type 2 diabetes mellitus with diabetic autonomic (poly) 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 ; nursing home 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 Z79.4 ; Back pain M54.9 and Neuropathy G62.9 [facility] [address] 77153- 7136 May, Left breast mass N63.20 [facility] [address] 82515- 1150 May, [facility] [address] 26459- 1731 Apr, Other dorsalgia M54.89 [facility] [address] 19437- 5846 Apr, Anorexia R63.0 [facility] [address] 05186- 9163 Apr, Anorexia R63.0 [facility] [address] 13620- 2276 Apr, Mass of left breast N63.20 [facility] [address] 63025- 1460 Apr, [facility] [address] 14857- 3153 Apr, [facility] [address] 58197- 0461 Apr, Diarrhea of presumed infectious origin A09 [facility] [address] 06897- 0625 Apr, Encounter for immunization Z23 [facility] [address] 81191- 5627 Apr, [place] [address] 35420- 2847 Mar, Other dorsalgia M54.89 [facility] [address] 36208- 7029 Mar, [facility] [id number] [place] [address] 81460- 5370 Mar, [facility] [address] 18973- 2258 Mar, Anorexia R63.0 [facility] [id number] [place] [address] 49655- 4368 Mar, [facility] [address] 20180- 6915 Mar, Other dorsalgia M54.89 [facility] [address] 13768- 5365 Mar, [facility] [id number] [place] [address] 22092- 1247 Mar, Encounter for immunization Z23 [facility] [address] 23685- 0620 Feb, Anorexia R63.0 [facility] [id number] [place] [address] 60089- 0448 Feb, Diabetes E11.9 [facility] [address] 64375- 3735 Feb, Back pain M54.9 and Diabetes E11.9 [facility] [id number] [place] [address] 72814- 4892 Feb, Diabetes E11.9 [facility] [id number] [place] [address] 25463- 0252 Feb, Neuropathy G62.9 [facility] [id number] [place] [address] 88164- 1959 Feb, Encounter for immunization Z23 ; Epigastric pain R10.13 ; Weight loss, abnormal R63.4 and Neuropathy G62.9 [facility] [id number] [place] [address] [id number] Feb, [facility] [address] [place] [address]- 6131 Feb, [facility] [id number] [place] [address] 00749- 9416 Feb, Intractable vomiting with nausea, unspecified vomiting type R11.2 [facility] [id number] [place] [address] 00098 -2730 Feb, Chronic nausea R11.0 [facility] [address] 23011- 2936 Feb, Other dorsalgia M54.89 [facility] [address] 20597- 2723 Jan, [facility] [address] 26835- 5790 Jan, [facility] [address] 30471- 6969 Jan, [facility] [address] 79777- 5300 Jan, [facility] [address] 70005- 6974 Jan, Asthma exacerbation J45.901 ; Bronchitis J40 and Neuropathy G62.9 [facility] [id number] [place] [address] 51624- 8888 Jan, Anorexia R63.0 [facility] [id number] [place] [address] 50311- 6797 Jan, Other dorsalgia M54.89 [facility] [id number] [place] [address] 81327- 6812 Dec, [facility] [address] 68715- 8959 Dec, [facility] [id number] [place] [address] 27913- 8433 Dec, Anorexia R63.0 [facility] [address] [address]- 3358 Dec, Primary insomnia F51.01 [facility] [id number] [place] [address] 48797- 7963 Dec, Other dorsalgia M54.89 [facility] [id number] [place] [address] 77866- 2822 Dec, [facility] [id number] [place] [address] 16774- 3655 Nov, [facility] [id number] [place] [address] 42179- 1766 Nov, [facility] [id number] [place] [address] 91376- 0608 Nov, [facility] [id number] [place] [address] 92052- 1944 Nov, History of colon polyps Z86.010 [facility] [address] [place] [address] 76667- 2796 Nov, Weight loss R63.4 ; Nausea and vomiting, intractability of vomiting not specified, unspecified vomiting type R11.2 and Abnormal LFTs R79.89 [facility] [address] [place] [address] 72080- 6476 Nov, [facility] [address] [place] [address] 93202- 6010 Nov, Neuropathy G62.9 and Pain in right knee M25.561 [facility] [address] [address]- 1530 Nov, Back pain M54.9 [facility] [id number] [place] [address] 62395- 0855 Nov, [facility] [address] [address]- 4016 Nov, Bronchitis J40 [facility] [id number] [address]- 7921 Nov, Weight loss R63.4 [facility] [id number] [place] [address] 62724- 3610 Oct, Back pain M54.9 [facility] [id number] [place] [address] 81906- 0624 16 Oct, 2016 [facility] [id number] [place] [address] 08351- 4516 14 Oct, 2016 Back pain M54.9 [facility] [id number] [place] [address] 48180- 4675 Oct, Type 2 diabetes mellitus without complications E11.9 and Bronchitis J40 [facility] [id number] [place] [address] 36134- 3348 Oct, [facility] [id number] [place] [address] 71856- 6268 Oct, [facility] [id number] [place] [address] 31236- 0866 September, Gastroparesis K31.84 ; Type 2 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 and Neuropathy G62.9 [facility] [address] [place] [address] 95399- 0016 September, Other dorsalgia M54.89 [facility] [id number] [place] [address] 14673- 5502 September, [facility] [id number] [place] [address] 59734- 9105 September, [facility] [id number] [place] [address] 33162- 7485 Aug, Gastroparesis K31.84 and Radicular leg pain M54.10 [facility] [address] [address]- 9582 Aug, Anorexia R63.0 [place] [id number] [place] [address] 06138- 6385 Aug, Bronchitis J40 [facility] [facility] [address] 05176- 9195 19 Aug, 2016 Back pain M54.9 [place] [address] 35720- 4662 04 Aug, 2016 Routine gynecological examination Z01.419 ; Routine screening for STI (sexually transmitted infection) Z11.3 and Yeast infection of the vagina B37.3 [place] [facility] [id number] [place] [address] 98804- 4544 Jul, Other dorsalgia M54.89 [place] [address] 57407- 2540 Jul, Diabetes E11.9 and Gastroparesis K31.84 [place] [address] 29648- 3901 Jun, [facility] [id number] [place] [address] 03379- 4675 24 Jun, 2016 Back pain M54.9 [place] [id number] [place] [address] 92457- 0285 14 Jun, 2016 Neuropathy G62.9 [facility] [id number] [place] [address] [id number] 02 Jun, 2016 Encounter for dental examination Z01.20 [facility] [id number] [place] [address] 91426- 0134 Jun, Gastroparesis 536.3 and Anorexia R63.0 [place] [address] 97861- 9929 May, Other dorsalgia M54.89 [place] [id number] [place] [address] 64628- 8604 May, Periumbilical abdominal pain R10.33 ; Weight loss R63.4 and Gastroparesis K31.84 [facility] [id number] [place] [address] 96512 2546 May, Back pain M54.9 [facility] [id number] [place] [address] 72120- 2546 Apr, Anorexia R63.0 [facility] [address] 01815- 2546 Apr, Anorexia R63.0 [facility] [address] 88985 2546 16 Apr, 2016 Back pain M54.9 [facility] [address] 59063 2546 Apr, Back pain M54.9 [facility] [address] 71085 2546 Apr, [facility] [address] 74694 2546 Apr, Bronchitis J40 and Neuropathy G62.9 [facility] [address] 79366 2546 Apr, Neuropathy G62.9 [facility] [id number] [place] [address] 60903 2546 Apr, [facility] [id number] [place] [address] 09126 2546 Apr, Back pain M54.9 [facility] [id number] [place] [address] 15406 2546 Mar, Type 2 diabetes mellitus with diabetic autonomic (poly) 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 [facility] [id number] [place] [address] 53584 2546 Mar, Type 2 diabetes mellitus without complications E11.9 [facility] [id number] [place] [address] 38188- 2886 Mar, Neuropathy G62.9 [facility] [id number] [place] [address] 02111- 5243 Mar, [place] [address] 10468- 9258 Mar, Breast cancer screening Z12.39 [place] [address] 81723- 6426 Mar, Other dorsalgia M54.89 [place] [address] 81637- 0937 Feb, [place] [address] 54013- 1992 Jan, Neuropathy G62.9 ; Type 2 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 ; Uncomplicated asthma, unspecified asthma severity J45.909 and Encounter for immunization Z23 [place] [address] 57031- 9661 Jan, [place] [address] 64176- 3238 Jan, [place] [address] 03830- 6469 Dec, [place] [id number] [place] [address] 56164- 4016 Dec, [facility] [id number] [place] [address] 53540- 6283 Nov, [facility] [id number] [place] [address] 48412- 1577 Nov, Back pain M54.9 [place] [address] 10562- 2228 Nov, Neuropathy G62.9 ; Mixed hyperlipidemia E78.2 ; Type 2 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 and 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 Z79.4 [place] [address] 05819- 1273 Oct, [facility] [address] [place] [address] 22769- 9077 Oct, Other dorsalgia M54.89 [facility] [address] [place] [address] 09519- 8872 September, Primary insomnia F51.01 [facility] [id number] [place] [address] 62070- 3834 September, [facility] [id number] [place] [address] 22043- 9611 Aug, Other dorsalgia M54.89 [facility] [id number] [place] [address] 73076- 9814 Jul, [facility] [id number] [place] [address] 82008- 2351 Jul, Other dorsalgia M54.89 [facility] [id number] [place] [address] 52230- 3271 Jul, Diabetes E11.9 ; Back pain M54.9 ; Neuropathy G62.9 and Gastroparesis K31.84 [facility] [id number] [place] [address] 30112- 0303 Jun, [facility] [id number] [place] [address] 48543- 6494 Jun, Other dorsalgia M54.89 [facility] [id number] [place] [address] 14120- 3982 May, [facility] [id number] [place] [address] 27054- 6282 May, Radicular leg pain M54.10 and Other dorsalgia M54.89 [facility] [address] [place] [address] 74522- 1555 Apr, [facility] [id number] [place] [address] 53090- 0334 Mar, [facility] [address] [address]- 5729 Mar, [facility] [id number] [place] [address] 35984- 4990 Mar, Radicular leg pain M54.10 [facility] [id number] [place] [address] 00677- 1502 Feb, [facility] [id number] [place] [address] 58573- 1909 Feb, [facility] [id number] [place] [address] 69729- 3338 Feb, [facility] [id number] [place] [address] 42111- 5571 Jan, [facility] [id number] [place] [address] 41366- 7934 Jan, IBS (irritable bowel syndrome) 564.1 [facility] [id number] [place] [address] 22404- 7211 Jan, [facility] [id number] [place] [address] 50202- 6860 Jan, [facility] [id number] [place] [address] 28044- 9572 Jan, Diabetes mellitus without mention of complication, type II or unspecified type, not stated as uncontrolled 250.00 ; Gastroparesis 536.3 and Hypoacusis 389.9 [facility] [address] [address] 5[address] Jan, [facility] [id number] [place] [address] 57615- 5427 Jan, [facility] [address] [address] 4864 Dec, [facility] [id number] [place] [address] [id number]- 7287 Dec, [facility] [id number] [address] 6265 Dec, [facility] [id number] [address] Dec, Back pain 724.5 and Gastroparesis 536.3 [facility] [id number] [place] [address] 74111- 1677 Nov, [facility] [id number] [id number] Nov, Dental examination V72.2 [facility] [id number] [place] [address] [id number]- 5409 Nov, [facility] [id number] [place] [address] 33058- 0249 Nov, [facility] [id number] [place] [address] 32736- 5456 Nov, Depressive disorder, not elsewhere classified 311 and No condition on [place] II V71.09 [facility] [id number] [place] [address] 69360- 5433 Nov, Diabetes 250.00 and Symptomatic menopausal or female climacteric states 627.2 [facility] [id number] [address] 0862 Oct, [facility] [id number] [place] [address] 04505- 4141 Oct, Lumbar strain 847.2 [facility] [id number] [address] 2984 Oct, Gastroparesis 536.3 and Unspecified myalgia and myositis 729.1 [facility] [id number] [address] 9181 14 Aug, 2014 [facility] [id number] [place] [address] 10346- 4425 Aug, [facility] [address] [address] [id number] [place] [address] Jul, [facility] [place] [facility] [address] [id number] [place] [address] Jul, [facility] [place] [facility] [address] [id number] [place] [address] Jul, [facility] [place] [facility] [address] [id number] [place] [address] Jul, [facility] [place] [facility] [address] [id number] [place] [address] Jul, [facility] [place] [facility] [address] [id number] [place] [address] Jun, [facility] [place] [facility] [address] [id number] [place] [address] Jun, [facility] [place] [facility] [address] [id number] [place] [address] Jun, [facility] [place] [facility] [address] [id number] [place] [address] May, [facility] [place] [facility] [address] [id number] [place] [address] May, [facility] [place] [facility] [address] [id number] [place] [address] Mar, [facility] [place] [facility] [address] [id number] [place] [address] Mar, [facility] [place] [facility] [address] [id number] [place] [address] Mar, [facility] [place] [facility] [address] [id number] [place] [address] Mar, [facility] [place] [facility] [address] [id number] [place] [address] Mar, [facility] [place] [facility] [address] [id number] [place] [address] Mar, [facility] [address] [id number] [place] [address] Feb, [facility] [address] [id number] [place] [address] Feb, [facility] [address] [id number] [place] [address] Nov, [facility] [address] [id number] [place] [address] Nov, [facility] [address] [id number] [place] [address] Nov, [facility] [address] [id number] [place] [address] Oct, [facility] [address] [id number] [place] [address] September, [facility] [address] [id number] [place] [address] Aug, [facility] [address] [id number] [place] [address] Aug, [facility] [address] [id number] [place] [address] Aug, [facility] [address] [id number] [place] [address] Aug, [facility] [address] [id number] [place] [address] Aug, [facility] [address] [id number] [place] [address] Aug, [facility] [address] [id number] [place] [address] Aug, [facility] [address] [id number] [place] [address] Aug, [facility] [address] [id number] [place] [address] Jul, [facility] [place] [facility] [address] [id number] [place] [address] Jul, [facility] [address] [id number] [place] [address] Jun, [facility] [place] [facility] [address] [id number] [place] [address] Jun, [facility] [address] [id number] [place] [address] Jun, [facility] [place] [facility] [address] [id number] [place] [address] 08 Jun, 2012 [facility] [address] [id number] [place] [address] Jun, [facility] [place] [facility] [address] [id number] [place] [address] Jun, [facility] [address] [id number] [place] [address] Jun, [facility] [place] [facility] [address] [id number] [place] [address] May, [facility] [place] [facility] [address] [id number] [place] [address] May, [facility] [place] [facility] [address] [id number] [place] [address] May, [facility] [place] [facility] [address] [id number] [place] [address] May, [facility] [place] [facility] [address] [id number] [place] [address] Mar, [facility] [place] [facility] [address] [id number] [place] [address] Mar, [facility] [place] [facility] [address] [facility] [id number] [place] [address] Jan, IMMUNIZATIONS No Known Immunizations SOCIAL HISTORY Never Assessed REASON FOR VISIT intake PLAN OF CARE Activity Details Follow Up 4 Weeks, prn Reason: VITAL SIGNS Height 62 in 2017-09-04 Weight 98.0 lbs 2017-09-04 Heart Rate 108 bpm 2017-09-04 Respiratory Rate 18 2017-09-04 BMI 17.92 kg/m2 2017-09-04 Blood pressure systolic 104 mmHg 2017-09-04 Blood pressure diastolic 76 mmHg 2017-09-04 MEDICATIONS Medication Instructions Dosage Frequency Start Date End Date Duration Status Promethazine-Codeine 6.25-10 MG/5ML Orally every 6 hrs 5 ml as needed 6h May, Not-Taking MiraLax - Orally Once a day as needed 1 packet mixed with 8 ounces of fluid Active Doxepin HCl 10 MG Orally Once a day 1 capsule at bedtime 24h 12 Aug, 2017 30 day(s) Active Multiple Vitamins-Iron - Orally Once a day 1 tablet 24h Active Oxycodone-Acetaminophen 10-325 MG Orally 4 times a day 1 tablet as needed 6h Jul, 28 days Active Promethazine HCl 25 MG Orally every 6 hours 1 tablet 6h 20 Aug, 2017 30 days Active Cyclobenzaprine HCl 10 TAKE 1 TABLET BY MOUTH THREE TIMES DAILY 30 Active Zofran ODT 8 MG DISSOLVE ONE TABLET ON THE TONGUE EVERY 6 HOURS 5 Active ProAir HFA 108 INHALE 2 PUFFS BY MOUTH FOUR TIMES DAILY NEEDED 25 Active Lantus SoloStar 100 8 units 12h Active Comfort Lancets - as directed 8h Mar, Active Omeprazole 40 mg 1 CAP(S) ONCE A DAY ORALLY 30 DAYS 30 Active Linzess 145 MCG Orally Once a day 1 capsule 24h Not-Taking Microlet Lancets 0 USE DIRECTED THREE TIMES DAILY 30 Active Cymbalta 30 mg Orally every morning 2 capsules 30 days Active Questran Light 4 GM/DOSE Orally Twice a day 1 packet 12h Apr, 05 days Active Cyanocobalamin 1000 MCG Orally Once a day 1 tablet 24h Active Humalog KwikPen 100 INJECT 5 UNITS SUB-Q THREE TIMES DAILY BOFORE MEALS Active Marinol 5 mg Orally Twice a day 1 capsule before lunch and supper 12h 28 days Active Quad Cane - as directed 24h 12 Apr, 2016 Active Lyrica 150 MG Orally Twice a day 1 capsule 12h 30 days Active Xarelto 20 mg 1 Tablet by Oral route 1 time per day Jul, Active Atorvastatin Calcium 40 MG TAKE ONE TABLET BY MOUTH ONCE DAILY (LAST REFILL MUST HAVE LABS) 30 Active Tizanidine HCl 4 MG Orally 2 times a day 1 tablet 12h 30 Active Acetaminophen 500 mg Orally at bedtime 2 capsules Active Ayden Contour Next Test - subcutaneously 3 times a day test blood sugar 8h Active RESULTS No Results PROCEDURES No Known [...] vomitting-[facility] 03/05/17 Hospitalization History hospital stay at [facility] for stomach issues 2016
--- OUTSIDE RECORDS SUMMARY | 2018-01-27 19:59 | XMS REPORT ---
Author Author HORACE HIGGINS [facility] Address [address] [place] [address] Care Team Providers Care Saw Boss Name Role Phone HORACE HIGGINS Unavailable PROBLEMS Type Condition ICD9-CM Code RJQ95-PQ Code Onset Dates Condition Status SNOMED Code Problem Primary insomnia F51.01 Active 6054348 Problem Reactive depression F32.9 Active 52256879 Problem Asthma exacerbation J45.901 Active 063978525 Problem Irritable bowel syndrome with constipation K58.1 Active 121737493 Problem Back pain M54.9 Active 639173517 Problem Tobacco dependency F17.200 Active 46734093 Problem Low TSH level R94.6 Active 031882016 Problem PTSD (post-traumatic stress disorder) F43.10 Active 49184297 Problem Diabetic polyneuropathy associated with type 2 diabetes mellitus E11.42 Active 12786948 Problem Annual physical exam Z00.00 Active 879014768 Problem Migraine without aura and without status migrainosus, not intractable G43.009 Active 703734757 Problem Gastroparesis K31.84 Active 785628367 Problem long term care 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 Z79.4 Active 237672077 Problem Neuropathy G62.9 Active 812347517 Problem Diabetes E11.9 Active 08684260 Problem Uncomplicated asthma, unspecified asthma severity J45.909 Active 644215591 Problem Anorexia R63.0 Active 46345779 Problem Mixed hyperlipidemia E78.2 Active 275201679 Problem Weight loss R63.4 Active 724326200 Problem Type 2 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 Active 94840948 Problem History of colon polyps Z86.010 Active 508784224 ALLERGIES Substance Reaction Event Type Date Status Coumadin vomitied blood Drug Allergy Aug, Active Toradol swells, itch from inside out Drug Allergy Aug, Active Nsaids (non-steroidal Anti-inflammatory Drug) triggers asthma, can't breathe, swells form inside out. Non Drug Allergy Aug, Active ENCOUNTERS Encounter Location Date Diagnosis [place] [address] [place] [id number] [place] [address] 08086- 1454 Jan, [place] [address] 56961- 4803 Dec, [place] [address] 82126- 3580 Nov, Irritable bowel syndrome with constipation K58.1 ; Uncomplicated asthma, unspecified asthma severity J45.909 and Type 2 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 [facility] [address] [id number] Nov, Dental examination Z01.20 [place] [address] 15156- 6832 Nov, Other dorsalgia M54.89 [place] [address] 93760- 9718 Nov, LLQ pain R10.32 ; Low TSH level R94.6 and Gastroparesis K31.84 [place] [address] 28984- 4919 Nov, Anorexia R63.0 [place] [address] 70005- 0208 Nov, Asthma exacerbation J45.901 [place] [address] 12207- 7188 Oct, PTSD (post-traumatic stress disorder) F43.10 [place] [id number] [place] [address] 08305- 8393 Oct, [place] [address] 88960- 2828 Oct, PTSD (post-traumatic stress disorder) F43.10 and Tobacco dependency F17.200 [place] [address] 41506- 0630 Oct, [facility] [id number] [place] [address] 25290- 2147 Oct, Other dorsalgia M54.89 [facility] [address] [place] [address] [id number]- 2015 Oct, Anorexia R63.0 [facility] [address] 62993- 4668 September, PTSD (post-traumatic stress disorder) F43.10 [facility] [address] 117971- 9090 September, Low TSH level R94.6 [facility] [address] 01827- 0015 September, Other dorsalgia M54.89 [facility] [address] 07596- 6088 September, Annual physical exam Z00.00 and Migraine without aura and without status migrainosus, not intractable G43.009 [facility] [address] 61521- 4916 September, Abnormal TSH R94.6 and Dysfunction of left eustachian tube H69.82 [facility] [id number] [place] [address] 39902- 1388 Aug, [facility] [address] 50951- 9973 Aug, Anorexia R63.0 [facility] [id number] [place] [address] [id number] Aug, Dental examination Z01.20 and Xerostomia K11.7 [facility] [address] 75994- 2582 Aug, Neuropathy G62.9 [facility] [address] 01965- 6694 Aug, [facility] [address] [place] [address] 80527- 0299 Aug, Other dorsalgia M54.89 [facility] [id number] [place] [address] 51436 2546 16 Aug, 2017 Type 2 diabetes mellitus with diabetic autonomic (poly) 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 ; Diabetic polyneuropathy associated with type 2 diabetes mellitus E11.42 ; Bronchitis J40 ; Gastroparesis K31.84 and Reactive depression F32.9 [facility] [id number] [place] [address] 71818 2541 Aug, PTSD (post-traumatic stress disorder) F43.10 [facility] [id number] [place] [address] 89543- 8196 Aug, Other dorsalgia M54.89 and Anorexia R63.0 [facility] [id number] [place] [address] 61540- 0876 Jul, [facility] [id number] [place] [address] 36547- 0845 Jul, Other dorsalgia M54.89 [facility] [id number] [place] [address] 50757- 7856 Jul, [facility] [id number] [place] [address] 80180- 1991 Jul, [facility] [id number] [place] [address] 91537- 3454 Jul, PTSD (post-traumatic stress disorder) F43.10 [facility] [id number] [place] [address] 41024- 0461 Jul, [facility] [id number] [place] [address] 90823- 0006 Jul, [facility] [id number] [place] [address] 74828- 6427 Jul, [facility] [id number] [place] [address] 33754- 7150 Jul, Anorexia R63.0 [facility] [id number] [place] [address] 58225- 8196 Jun, [facility] [id number] [place] [address] 70935- 6676 Jun, Vaginal discharge N89.8 ; Visit for gynecologic examination Z01.419 and Pelvic pressure in female R10.2 [facility] [id number] [place] [address] 05751 2546 Jun, [facility] [id number] [place] [address] 57329- 1796 Jun, Other dorsalgia M54.89 [facility] [id number] [place] [address] 15055- 4976 16 Jun, 2017 [facility] [address] 03146- 9136 Jun, [facility] [id number] [place] [address] 00926- 3542 Jun, [facility] [id number] [place] [address] 86415- 4571 May, Back pain M54.9 [facility] [id number] [place] [address] 57925 2546 May, Anorexia R63.0 [facility] [address] [id number] [place] [address] 74244- 8956 May, Other dorsalgia M54.89 [facility] [id number] [place] [address] 57338- 2626 May, [facility] [id number] [place] [address] 69258- 4686 May, Bronchitis J40 [facility] [id number] [place] [address] 75909- 5946 May, Type 2 diabetes mellitus with diabetic autonomic (poly) 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 ; long term care 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 Z79.4 ; Back pain M54.9 and Neuropathy G62.9 [facility] [address] 22941- 6535 May, Left breast mass N63.20 [facility] [address] 74649- 9502 May, [facility] [address] 91266- 8088 Apr, Other dorsalgia M54.89 [facility] [address] 01581- 6786 Apr, Anorexia R63.0 [facility] [address] 87095- 9644 Apr, Anorexia R63.0 [facility] [address] 56410- 1749 Apr, Mass of left breast N63.20 [facility] [address] 08288- 8009 Apr, [facility] [address] 99248- 5193 Apr, [facility] [address] 98583- 1487 Apr, Diarrhea of presumed infectious origin A09 [facility] [address] 19111- 4736 Apr, Encounter for immunization Z23 [facility] [address] 72964- 0913 Apr, [facility] [address] 07803- 1289 Mar, Other dorsalgia M54.89 [facility] [address] 34551- 8599 Mar, [place] [address] [id number] [place] [address] 06375- 0372 Mar, [facility] [address] 93347- 2730 Mar, Anorexia R63.0 [facility] [id number] [place] [address] 59529- 4083 Mar, [facility] [address] 42607- 8053 Mar, Other dorsalgia M54.89 [facility] [address] 58232- 1155 Mar, [facility] [address] [place] [id number] [place] [address] 28199- 3891 Mar, Encounter for immunization Z23 [facility] [address] 13897- 3793 Feb, Anorexia R63.0 [facility] [id number] [place] [address] 93950- 4452 Feb, Diabetes E11.9 [facility] [address] 97907- 4970 Feb, Back pain M54.9 and Diabetes E11.9 [facility] [id number] [place] [address] 63724- 1844 Feb, Diabetes E11.9 [facility] [id number] [place] [address] 76080- 0305 Feb, Neuropathy G62.9 [facility] [id number] [place] [address] 01856- 2265 Feb, Encounter for immunization Z23 ; Epigastric pain R10.13 ; Weight loss, abnormal R63.4 and Neuropathy G62.9 [facility] [address] [id number] [place] [address] [id number] Feb, [facility] [address] [place] [address]- 8337 Feb, [facility] [address] [id number] [place] [address] 10068- 6281 Feb, Intractable vomiting with nausea, unspecified vomiting type R11.2 [facility] [id number] [place] [address] 08570 -0101 Feb, Chronic nausea R11.0 [facility] [address] 23366- 9199 Feb, Other dorsalgia M54.89 [facility] [address] 89019- 4141 Jan, [facility] [address] 69478- 2543 Jan, [facility] [address] 58920- 6330 Jan, [facility] [address] 42651- 1066 Jan, [facility] [address] 56068- 7002 Jan, Asthma exacerbation J45.901 ; Bronchitis J40 and Neuropathy G62.9 [facility] [address] 38239- 8260 Jan, Anorexia R63.0 [facility] [address] 12182- 7326 Jan, Other dorsalgia M54.89 [facility] [id number] [place] [address] 08745- 5878 Dec, [facility] [address] 90341- 7573 Dec, [facility] [address] 17891- 7946 Dec, Anorexia R63.0 [facility] [address] [place] [address]- 6190 Dec, Primary insomnia F51.01 [facility] [id number] [place] [address] 53315- 9436 Dec, Other dorsalgia M54.89 [facility] [id number] [place] [address] 66623- 1461 Dec, [facility] [id number] [place] [address] 22701- 0598 Nov, [facility] [address] [id number] [place] [address] 14246- 8865 Nov, [facility] [address] [id number] [place] [address] 80615- 4364 Nov, [facility] [address] [id number] [place] [address] 39207- 1773 Nov, History of colon polyps Z86.010 [facility] [id number] [place] [address] 69897- 0385 Nov, Weight loss R63.4 ; Nausea and vomiting, intractability of vomiting not specified, unspecified vomiting type R11.2 and Abnormal LFTs R79.89 [facility] [address] [place] [address]- 1743 Nov, [facility] [address] [place] [address] 10721- 7075 Nov, Neuropathy G62.9 and Pain in right knee M25.561 [facility] [address] [place] [address] 01236- 0075 Nov, Back pain M54.9 [facility] [id number] [place] [address] 07851- 2214 Nov, [facility] [address] [place] [address]- 2785 Nov, Bronchitis J40 [facility] [address] [address]- 9068 Nov, Weight loss R63.4 [facility] [address] [id number] [place] [address] 59346- 6230 Oct, Back pain M54.9 [facility] [id number] [place] [address] 41619- 7400 16 Oct, 2016 [facility] [id number] [place] [address] 39783- 2451 Oct, Back pain M54.9 [facility] [id number] [place] [address] 12017- 7104 13 Oct, 2016 Type 2 diabetes mellitus without complications E11.9 and Bronchitis J40 [facility] [address] [id number] [place] [address] 16880- 7542 Oct, [place] [id number] [place] [address] 34301- 5237 Oct, [facility] [id number] [place] [address] 24431- 0320 September, Gastroparesis K31.84 ; Type 2 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 and Neuropathy G62.9 [place] [address], [place] [address]- 8546 September, Other dorsalgia M54.89 [facility] [id number] [place] [address] 14264- 6648 September, [facility] [address] [place] [address] 92228- 5303 September, [facility] [id number] [place] [address] 23077- 6730 Aug, Gastroparesis K31.84 and Radicular leg pain M54.10 [facility] [address], [place] [address]- 9486 Aug, Anorexia R63.0 [place] [id number] [place] [address] 71683- 9530 20 Aug, 2016 Bronchitis J40 [facility] [address] 96464- 8614 19 Aug, 2016 Back pain M54.9 [place] [id number] [place] [address] 84202- 8883 04 Aug, 2016 Routine gynecological examination Z01.419 ; Routine screening for STI (sexually transmitted infection) Z11.3 and Yeast infection of the vagina B37.3 [place] [id number] [place] [address] 26882- 6351 Jul, Other dorsalgia M54.89 [place] [id number] [place] [address] 59189- 8518 Jul, Diabetes E11.9 and Gastroparesis K31.84 [place] [address] 21088- 1387 Jun, [facility] [id number] [place] [address] 61974- 6251 24 Jun, 2016 Back pain M54.9 [place] [id number] [place] [address] 71151- 7843 14 Jun, 2016 Neuropathy G62.9 [facility] [address] [place] [address] [id number] 02 Jun, 2016 Encounter for dental examination Z01.20 [facility] [id number] [place] [address] 25538- 4163 Jun, Gastroparesis 536.3 and Anorexia R63.0 [place] [address] 10238- 3796 May, Other dorsalgia M54.89 [place] [id number] [place] [address] 61822- 1778 May, Periumbilical abdominal pain R10.33 ; Weight loss R63.4 and Gastroparesis K31.84 [facility] [id number] [place] [address] 87384 2546 May, Back pain M54.9 [facility] [id number] [place] [address] 54857- 2546 Apr, Anorexia R63.0 [facility] [address] 88082- 2546 Apr, Anorexia R63.0 [facility] [address] 46086- 2546 16 Apr, 2016 Back pain M54.9 [facility] [address] 74643- 2546 Apr, Back pain M54.9 [facility] [id number] [place] [address] 56946 2546 Apr, [facility] [address] 82967 2546 Apr, Bronchitis J40 and Neuropathy G62.9 [facility] [address] 78351 2546 Apr, Neuropathy G62.9 [facility] [id number] [place] [address] 91888 2546 Apr, [facility] [id number] [place] [address] 50532 2546 Apr, Back pain M54.9 [facility] [id number] [place] [address] 17996 2546 Mar, Type 2 diabetes mellitus with diabetic autonomic (poly) 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 [facility] [id number] [place] [address] 60445 2546 Mar, Type 2 diabetes mellitus without complications E11.9 [facility] [id number] [place] [address] 98054 2546 Mar, Neuropathy G62.9 [place] [id number] [place] [address] 27292- 1572 Mar, [place] [id number] [place] [address] 29206- 7246 Mar, Breast cancer screening Z12.39 [place] [id number] [place] [address] 36678- 1891 Mar, Other dorsalgia M54.89 [place] [id number] [place] [address] 63005- 1581 Feb, [place] [id number] [place] [address] 67601- 9520 Jan, Neuropathy G62.9 ; Type 2 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 ; Uncomplicated asthma, unspecified asthma severity J45.909 and Encounter for immunization Z23 [place] [id number] [place] [address] 30717- 7878 Jan, [place] [id number] [place] [address] 80463- 6140 Jan, [place] [id number] [place] [address] 90453- 4689 Dec, [place] [id number] [place] [address] 73875- 3564 Dec, [place] [id number] [place] [address] 85002- 5882 Nov, [place] [id number] [place] [address] 01751- 1709 Nov, Back pain M54.9 [place] [id number] [place] [address] 22305- 5507 Nov, Neuropathy G62.9 ; Mixed hyperlipidemia E78.2 ; Type 2 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 and custodial 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 Z79.4 [place] [id number] [place] [address] 29209- 7864 Oct, [facility] [id number] [place] [address] 53841- 0423 Oct, Other dorsalgia M54.89 [facility] [id number] [place] [address] 15011- 8971 September, Primary insomnia F51.01 [facility] [id number] [place] [address] 23378- 8313 September, [facility] [id number] [place] [address] 49731- 1113 Aug, Other dorsalgia M54.89 [facility] [address] 04806- 5675 Jul, [facility] [id number] [place] [address] 57499- 5872 Jul, Other dorsalgia M54.89 [facility] [id number] [place] [address] 84597- 7232 Jul, Diabetes E11.9 ; Back pain M54.9 ; Neuropathy G62.9 and Gastroparesis K31.84 [facility] [id number] [place] [address] 50073- 1352 Jun, [facility] [id number] [place] [address] 27492- 9675 Jun, Other dorsalgia M54.89 [facility] [id number] [place] [address] 06667- 9672 May, [facility] [id number] [place] [address] 06987- 4415 May, Radicular leg pain M54.10 and Other dorsalgia M54.89 [facility] [id number] [place] [address] 80111- 0795 Apr, [facility] [id number] [place] [address] 59615- 0997 Mar, [facility] [address], [place] [address]- 3060 Mar, [facility] [id number] [place] [address] 71075- 4622 Mar, Radicular leg pain M54.10 [facility] [id number] [place] [address] 54018- 8407 Feb, [facility] [id number] [place] [address] 83811- 1193 Feb, [facility] [id number] [place] [address] 95927- 1194 Feb, [facility] [id number] [place] [address] 56896- 9374 Jan, [facility] [id number] [place] [address] 60757- 5347 Jan, IBS (irritable bowel syndrome) 564.1 [facility] [id number] [place] [address] 56660- 0037 Jan, [facility] [id number] [place] [address] 85104- 5722 Jan, [facility] [id number] [place] [address] 57397- 6754 Jan, Diabetes mellitus without mention of complication, type II or unspecified type, not stated as uncontrolled 250.00 ; Gastroparesis 536.3 and Hypoacusis 389.9 [facility] [id number] [address] Jan, [facility] [id number] [place] [address] [phone]- [phone] Jan, [facility] [id number] [place] [address] [id number]- [phone] Dec, [facility] [id number] [place] [address] [id number] [id number] Dec, [facility] [id number] [address] Dec, [facility] [id number] [place] [address] [id number]- [phone] Dec, Back pain 724.5 and Gastroparesis 536.3 [facility] [id number] [place] [address] [id number]- [phone] Nov, [facility] [id number] [id number] Nov, Dental examination V72.2 [facility] [id number] [place] [address] [phone] Nov, [facility] [id number] [place] [address] [address] Nov, [facility] [id number] [place] [address]- [address]76 Nov, Depressive disorder, not elsewhere classified 311 and No condition on [place] II V71.09 [facility] [id number] [place] [address]863- 2826 Nov, Diabetes 250.00 and Symptomatic menopausal or female climacteric states 627.2 [facility] [id number] [address] Oct, [facility] [id number] [place] [address]- 2690 Oct, Lumbar strain 847.2 [facility] [address] [id number] [address] Oct, Gastroparesis 536.3 and Unspecified myalgia and myositis 729.1 [facility] [id number] [address] Aug, [facility] [id number] [place] [address]- 4424 Aug, [facility] [place] [facility] [address] [id number] [place] [address] Jul, [facility] [place] [facility] [address] [id number] [place] [address] 3[address] Jul, [facility] [place] [facility] [address] [id number] [place] [address]759 Jul, [facility] [place] [facility] [address] [id number] [place] [address] Jul, [facility] [place] [facility] [address] [id number] [place] [address] Jul, [facility] [place] [facility] [address] [id number] [place] [address] Jun, [facility] [place] [facility] [address] [id number] [place] [address] 8190 Jun, [facility] [place] [facility] [address] [id number] [place] [address]114 Jun, [facility] [place] [facility] [address] [id number] [place] [address]- 0145 May, [facility] [place] [facility] [address] [id number] [place] [address]- [address]500 May, [facility] [place] [facility] [address] [id number] [place] [address]- 7594 Mar, [facility] [place] [facility] [address] [id number] [place] [address]- 4295 Mar, [facility] [place] [facility] [address] [id number] [place] [address]- 7599 Mar, [facility] [place] [facility] [address] [id number] [place] [address]- 2635 Mar, [facility] [place] [facility] [address] [id number] [place] [address]- 6029 Mar, [facility] [place] [facility] [address] [id number] [place] [address]- [address]29 Mar, [facility] [address] [id number] [place] [address]82 Feb, [facility] [address] [id number] [place] [address] [address] Feb, [facility] [address] [id number] [place] [address] 5854 Nov, [facility] [address] [id number] [place] [address]- 2434 Nov, [facility] [address] [id number] [place] [address]- [address] Nov, [facility] [address] [id number] [place] [address]- [address] Oct, [facility] [address] [id number] [place] [address] [address] September, [facility] [address] [id number] [place] [address] 3671 Aug, [facility] [address] [id number] [place] [address] 0075 Aug, [facility] [address] [id number] [place] [address] 6638 Aug, [facility] [address] [id number] [place] [address] [address] Aug, [facility] [address] [id number] [place] [address]- 3386 Aug, [facility] [address] [id number] [place] [address]- [address] Aug, [facility] [address] [id number] [place] [address] [address] Aug, [facility] [address] [id number] [place] [address]- 8368 Aug, [facility] [address] [id number] [place] [address]- 1289 Jul, [facility] [address] [id number] [place] [address]- 3528 Jul, [facility] [address] [id number] [place] [address]- 9295 Jun, [facility] [place] [facility] [address] [id number] [place] [address]- 4062 Jun, [facility] [address] [id number] [place] [address]- 0345 Jun, [facility] [place] [facility] [address] [id number] [place] [address]- [address] 08 Jun, 2012 [facility] [address] [id number] [place] [address]- 9633 Jun, [facility] [address] [id number] [place] [address]- 6538 Jun, [facility] [address] [id number] [place] [address]- 4877 Jun, [facility] [address] [id number] [place] [address]- 2976 May, [facility] [address] [id number], [place] [address] May, [facility] [place] [facility] [address] [id number], [place] [address] May, [facility] [place] [facility] [address] [id number] [place] [address]- 6494 May, [facility] [place] [facility] [address] [id number] [place] [address]- 1845 Mar, [facility] [place] [facility] [address] [id number] [place] [address]- 9019 Mar, [facility] [address] [facility] [id number] [place] [id number] Jan, IMMUNIZATIONS No Known Immunizations SOCIAL HISTORY Never Assessed REASON FOR VISIT f/u pain management, possible bronchitis WB - MA PLAN OF CARE Activity Details Follow Up 3 Months Reason: VITAL SIGNS Height 62 in 2017-09-08 Weight 99 lbs 2017-09-08 Temperature 98.3 degrees Fahrenheit 2017-09-08 Heart Rate 106 bpm 2017-09-08 Respiratory Rate 18 2017-09-08 BMI 18.11 kg/m2 2017-09-08 Blood pressure systolic 102 mmHg 2017-09-08 Blood pressure diastolic 72 mmHg 2017-09-08 MEDICATIONS Medication Instructions Dosage Frequency Start Date End Date Duration Status Lyrica 150 MG Orally Twice a day 1 capsule 12h 30 days Active Doxepin HCl 10 MG Orally Once a day 1 capsule at bedtime 24h Aug, 30 day(s) Active Cyanocobalamin 1000 MCG Orally Once a day 1 tablet 24h Active Microlet Lancets 0 USE DIRECTED THREE TIMES DAILY 30 Active Acetaminophen 500 mg Orally at bedtime 2 capsules Active ProAir HFA 108 INHALE 2 PUFFS BY MOUTH FOUR TIMES DAILY NEEDED 25 Active Cyclobenzaprine HCl 10 TAKE 1 TABLET BY MOUTH THREE TIMES DAILY 30 Active Comfort Lancets - as directed 8h 30 Mar, 2016 Active Tizanidine HCl 4 MG Orally 2 times a day 1 tablet 12h 30 Active Lantus SoloStar 100 8 units 12h Active Questran Light 4 GM/DOSE Orally Twice a day 1 packet 12h Apr, 05 days Active Humalog KwikPen 100 INJECT 5 UNITS SUB-Q THREE TIMES DAILY BOFORE MEALS Active Zithromax 250 MG Orally Once a day 2 tablets on the first day, then 1 tablet daily for 4 days 24h Aug, Aug, 5 day(s) Active Oxycodone-Acetaminophen 10-325 MG Orally 4 times a day 1 tablet as needed 6h Jul, 28 days Active Marinol 5 mg Orally Twice a day 1 capsule before lunch and supper 12h 28 days Active Promethazine HCl 25 MG Orally every 6 hours 1 tablet 6h Aug, 30 days Active Quad Cane - as directed 24h 12 Apr, 2016 Active Promethazine-Codeine 6.25-10 MG/5ML Orally every 6 hrs 5 ml as needed 6h May, Not-Taking Linzess 145 MCG Orally Once a day 1 capsule 24h Not-Taking Cymbalta 30 mg Orally every morning 2 capsules 30 days Active Multiple Vitamins-Iron - Orally Once a day 1 tablet 24h Active Xarelto 20 mg 1 Tablet by Oral route 1 time per day Jul, Active Zofran ODT 8 MG DISSOLVE ONE TABLET ON THE TONGUE EVERY 6 HOURS 5 Active Atorvastatin Calcium 40 MG TAKE ONE TABLET BY MOUTH ONCE DAILY (LAST REFILL MUST HAVE LABS) 30 Active Ayden Contour Next Test - subcutaneously 3 times a day test blood sugar 8h Active Omeprazole 40 mg 1 CAP(S) ONCE A DAY ORALLY 30 DAYS 30 Active MiraLax - Orally Once a day as needed 1 packet mixed with 8 ounces of fluid Active RESULTS Name Result Date Reference Range A1C (IN HOUSE) 2017-09-08 A1C IN HOUSE 7.2 4.3 - 5.6 % Previous A1c 6.5 Lot [id number] Exp date 06/2019 PROCEDURES Procedure Date Ordered Result Body Site [facility] VISIT ESTABLISHED PATIENT September 08, 2017 GLYCATED HEMOGLOBIN TEST September 08, 2017 INSTRUCTIONS MEDICATIONS ADMINISTERED No Known Medications [...] High blood sugar 2016 Hospitalization History DKA, vomitting-[facility] 03/05/17 Hospitalization History hospital stay at [facility] for stomach issues 2016
--- OUTSIDE RECORDS SUMMARY | 2018-01-27 20:00 | XMS REPORT ---
Author Author HORACE HIGGINS [facility] Address [address] [place] [address] Care Team Providers Care Supervisor [employer] Name Role Phone HORACE HIGGINS Unavailable PROBLEMS Type Condition ICD9-CM Code RZZ16-NM Code Onset Dates Condition Status SNOMED Code Problem History of colon polyps Z86.010 Active 689206224 Problem Asthma exacerbation J45.901 Active 887773329 Problem Primary insomnia F51.01 Active 4200785 Problem Tobacco dependency F17.200 Active 91448819 Problem Low TSH level R94.6 Active 427418173 Problem Annual physical exam Z00.00 Active 272761802 Problem Diabetic polyneuropathy associated with type 2 diabetes mellitus E11.42 Active 48017114 Problem Reactive depression F32.9 Active 48497755 Problem Migraine without aura and without status migrainosus, not intractable G43.009 Active 395372963 Problem PTSD (post-traumatic stress disorder) F43.10 Active 49214141 Problem Diabetes E11.9 Active 05863706 Problem Gastroparesis K31.84 Active 953897208 Problem Back pain M54.9 Active 800356602 Problem Neuropathy G62.9 Active 474840180 Problem Type 2 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 Active 10006970 Problem Uncomplicated asthma, unspecified asthma severity J45.909 Active 354406300 Problem skilled nursing 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 Z79.4 Active 787364225 Problem Anorexia R63.0 Active 84440217 Problem Mixed hyperlipidemia E78.2 Active 019306658 Problem Weight loss R63.4 Active 071769427 ALLERGIES No Information ENCOUNTERS Encounter Location Date Diagnosis [facility] [id number], [place] [address] Jan, [facility] [address] [id number], [place] [address] Dec, [facility] [address] [id number] Nov, [facility] [id number] [place] [address] 87561 2546 Nov, Other dorsalgia M54.89 [facility] [id number] [place] [address] 27163 2546 Nov, LLQ pain R10.32 ; Low TSH level R94.6 and Gastroparesis K31.84 [facility] [id number] [place] [address] 97346 2546 Nov, Anorexia R63.0 [facility] [address] 05015- 3546 Nov, Asthma exacerbation J45.901 [facility] [id number] [place] [address] 89283- 4826 Oct, PTSD (post-traumatic stress disorder) F43.10 [facility] [id number] [place] [address] 77533 2546 Oct, [facility] [id number] [place] [address] 54794 2545 Oct, PTSD (post-traumatic stress disorder) F43.10 and Tobacco dependency F17.200 [facility] [id number] [place] [address] 37917 2546 Oct, [facility] [id number] [place] [address] 39199 2544 Oct, Other dorsalgia M54.89 [facility] [id number] [place] [address] 77042 2546 04 Oct, 2017 Anorexia R63.0 [facility] [id number] [place] [address] 89682 2547 September, PTSD (post-traumatic stress disorder) F43.10 [facility] [id number] [place] [address] 28041- 9656 September, Low TSH level R94.6 [facility] [address] 44849- 5606 September, Other dorsalgia M54.89 [facility] [address] [address]- [address] September, Annual physical exam Z00.00 and Migraine without aura and without status migrainosus, not intractable G43.009 [facility] [address] 5011 September, Abnormal TSH R94.6 and Dysfunction of left eustachian tube H69.82 [facility] [address] 755160- 5104 Aug, [facility] [address] 6[address]74 6536 Aug, Anorexia R63.0 [facility] [address] [id number] Aug, Dental examination Z01.20 and Xerostomia K11.7 [place] [facility] [address] 12844- 9727 Aug, Neuropathy G62.9 [facility] [address] 95009- 9482 Aug, [facility] [address] 23475- 2663 Aug, Other dorsalgia M54.89 [facility] [address] 42142- 9146 Aug, Type 2 diabetes mellitus with diabetic autonomic (poly) 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 ; Diabetic polyneuropathy associated with type 2 diabetes mellitus E11.42 ; Bronchitis J40 ; Gastroparesis K31.84 and Reactive depression F32.9 [facility] [address] 40241- 6450 Aug, PTSD (post-traumatic stress disorder) F43.10 [facility] [id number] [place] [address] 31912 2546 Aug, Other dorsalgia M54.89 and Anorexia R63.0 [facility] [id number] [place] [address] 77715 2546 Jul, [facility] [id number] [place] [address] 90135 2546 Jul, Other dorsalgia M54.89 [facility] [id number] [place] [address] 56983 2546 Jul, [facility] [id number] [place] [address] 54788 2546 Jul, [facility] [id number] [place] [address] 51491 2546 Jul, PTSD (post-traumatic stress disorder) F43.10 [facility] [id number] [place] [address] 02373 2546 Jul, [facility] [id number] [place] [address] 70448 2546 Jul, [facility] [id number] [place] [address] 15573 2546 Jul, [facility] [id number] [place] [address] 02861 2546 Jul, Anorexia R63.0 [facility] [id number] [place] [address] 66959 2546 Jun, [facility] [id number] [place] [address] 90312 2546 Jun, Vaginal discharge N89.8 ; Visit for gynecologic examination Z01.419 and Pelvic pressure in female R10.2 [facility] [id number] [place] [address] 82139- 1146 Jun, [facility] [id number] [place] [address] 41885- 2832 Jun, Other dorsalgia M54.89 [facility] [id number] [place] [address] 91164- 5141 Jun, [facility] [id number] [place] [address] 44363- 0858 Jun, [facility] [id number] [place] [address] 77192- 2632 Jun, [facility] [id number] [place] [address] 40971- 2018 May, Back pain M54.9 [facility] [address] 14087- 0296 May, Anorexia R63.0 [facility] [address] 08894- 4382 May, Other dorsalgia M54.89 [facility] [id number] [place] [address] 58032- 0255 May, [facility] [id number] [place] [address] 17731- 8051 May, Bronchitis J40 [facility] [id number] [place] [address] 32120- 5572 May, Type 2 diabetes mellitus with diabetic autonomic (poly) 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 ; skilled nursing 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 Z79.4 ; Back pain M54.9 and Neuropathy G62.9 [facility] [id number] [place] [address] 94408- 6843 May, Left breast mass N63.20 [facility] [address] 74887- 4899 May, [facility] [id number] [place] [address] 24481- 2781 Apr, Other dorsalgia M54.89 [facility] [id number] [place] [address] 33568- 3168 Apr, Anorexia R63.0 [facility] [id number] [place] [address] 03009- 0526 Apr, Anorexia R63.0 [facility] [id number] [place] [address] 20626- 5397 Apr, Mass of left breast N63.20 [facility] [address] 34668- 4187 Apr, [facility] [id number] [place] [address] 81352- 2914 Apr, [facility] [address] 35458- 1557 Apr, Diarrhea of presumed infectious origin A09 [facility] [address] 39568- 2623 Apr, Encounter for immunization Z23 [facility] [id number] [place] [address] 75320- 3827 Apr, [facility] [id number] [place] [address] 14599- 8556 Mar, Other dorsalgia M54.89 [facility] [id number] [place] [address] 67760- 7048 Mar, [facility] [id number] [place] [address] 60478- 1883 Mar, [facility] [id number] [place] [address] 86940- 2545 Mar, Anorexia R63.0 [facility] [address] 72802- 2394 Mar, [facility] [id number] [place] [address] 97281- 2545 Mar, Other dorsalgia M54.89 [facility] [address] 96654- 7251 Mar, [facility] [id number] [place] [address] 44506- 8761 Mar, Encounter for immunization Z23 [facility] [address] 59890- 4856 Feb, Anorexia R63.0 [facility] [address] 97492- 8024 Feb, Diabetes E11.9 [facility] [address] 06856- 0227 Feb, Back pain M54.9 and Diabetes E11.9 [facility] [address] 52962- 5984 Feb, Diabetes E11.9 [facility] [address] 70725- 7748 Feb, Neuropathy G62.9 [facility] [address] 83520- 9245 Feb, Encounter for immunization Z23 ; Epigastric pain R10.13 ; Weight loss, abnormal R63.4 and Neuropathy G62.9 [facility] [address] [id number] Feb, [facility] [id number] [place] [address] 95186- 8999 Feb, [facility] [id number] [place] [address] 01094- 0736 Feb, Intractable vomiting with nausea, unspecified vomiting type R11.2 [facility] [address] 62475 -3543 Feb, Chronic nausea R11.0 [facility] [id number] [place] [address] 55453- 9885 Feb, Other dorsalgia M54.89 [facility] [address] 54443 2546 Jan, [facility] [address] [place] [address] 07100 2546 Jan, [facility] [id number] [place] [address] 86744 2546 Jan, [facility] [id number] [place] [address] 31851 2546 Jan, [facility] [id number] [place] [address] 64185 2546 Jan, Asthma exacerbation J45.901 ; Bronchitis J40 and Neuropathy G62.9 [facility] [id number] [place] [address] 41722 2546 Jan, Anorexia R63.0 [facility] [id number] [place] [address] 35460- 0096 Jan, Other dorsalgia M54.89 [facility] [id number] [place] [address] 51451- 5476 Dec, [facility] [id number] [place] [address] 27274- 6126 Dec, [facility] [id number] [place] [address] 65056- 2249 Dec, Anorexia R63.0 [facility] [id number] [place] [address] 48651 2546 Dec, Primary insomnia F51.01 [facility] [id number] [place] [address] 24606 2549 Dec, Other dorsalgia M54.89 [facility] [id number] [place] [address] 88391 2546 Dec, [facility] [id number] [place] [address] 78262 2546 Nov, [facility] [id number] [place] [address] 39245- 8823 Nov, [facility] [id number] [place] [address] 43908- 2777 Nov, [facility] [id number] [place] [address] 64767- 6928 Nov, History of colon polyps Z86.010 [facility] [id number] [place] [address] 96678- 7106 Nov, Weight loss R63.4 ; Nausea and vomiting, intractability of vomiting not specified, unspecified vomiting type R11.2 and Abnormal LFTs R79.89 [facility] [id number] [place] [address] 79821- 5473 Nov, [facility] [id number] [place] [address] 36512- 5815 Nov, Neuropathy G62.9 and Pain in right knee M25.561 [facility] [id number] [place] [address] 92679- 1056 Nov, Back pain M54.9 [facility] [id number] [place] [address] 46578- 0342 Nov, [facility] [id number] [place] [address] 28747- 4991 Nov, Bronchitis J40 [facility] [id number] [place] [address] 91500- 6263 Nov, Weight loss R63.4 [facility] [id number] [place] [address] 47144- 4670 Oct, Back pain M54.9 [facility] [id number] [place] [address] 24122- 4481 16 Oct, 2016 [facility] [id number] [place] [address] 37786- 9466 14 Oct, 2016 Back pain M54.9 [facility] [id number] [place] [address] 63381- 4060 Oct, Type 2 diabetes mellitus without complications E11.9 and Bronchitis J40 [facility] [id number] [place] [address] 23863- 6877 Oct, [facility] [id number] [place] [address] 70916- 2808 Oct, [facility] [address] 10970- 2480 September, Gastroparesis K31.84 ; Type 2 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 and Neuropathy G62.9 [facility] [address] 16931- 4176 September, Other dorsalgia M54.89 [facility] [id number] [place] [address] 41506- 5362 September, [facility] [address] 26938- 4429 September, [facility] [id number] [place] [address] 31662- 1976 Aug, Gastroparesis K31.84 and Radicular leg pain M54.10 [facility] [id number] [place] [address] 35608- 4487 Aug, Anorexia R63.0 [facility] [id number] [place] [address] 80771- 9583 Aug, Bronchitis J40 [facility] [id number] [place] [address] 31128- 4066 Aug, Back pain M54.9 [facility] [address] 23976- 1886 Aug, Routine gynecological examination Z01.419 ; Routine screening for STI (sexually transmitted infection) Z11.3 and Yeast infection of the vagina B37.3 [facility] [id number] [place] [address] 76768- 6945 Jul, Other dorsalgia M54.89 [facility] [id number] [place] [address] 90379- 9709 Jul, Diabetes E11.9 and Gastroparesis K31.84 [facility] [id number] [place] [address] 40549- 8309 Jun, [facility] [address] 75158- 2948 Jun, Back pain M54.9 [facility] [address] 48520- 3886 Jun, Neuropathy G62.9 [facility] [address] [id number] Jun, Encounter for dental examination Z01.20 [facility] [address] 93538- 7914 Jun, Gastroparesis 536.3 and Anorexia R63.0 [facility] [id number] [place] [address] 38267- 5820 May, Other dorsalgia M54.89 [facility] [address] 34968- 0079 May, Periumbilical abdominal pain R10.33 ; Weight loss R63.4 and Gastroparesis K31.84 [facility] [id number] [place] [address] 22665- 2316 May, Back pain M54.9 [facility] [id number] [place] [address] 95862- 2015 Apr, Anorexia R63.0 [facility] [address] 77900- 8590 Apr, Anorexia R63.0 [facility] [id number] [place] [address] 08472- 9614 Apr, Back pain M54.9 [facility] [id number] [place] [address] 92434- 7226 Apr, Back pain M54.9 [facility] [id number] [place] [address] 82618- 1176 Apr, [facility] [id number] [place] [address] 33197- 3518 Apr, Bronchitis J40 and Neuropathy G62.9 [facility] [id number] [place] [address] 03696- 1218 Apr, Neuropathy G62.9 [facility] [id number] [place] [address] 38343- 3184 Apr, [facility] [id number] [place] [address] 40668- 8037 Apr, Back pain M54.9 [facility] [address] 50710- 7252 Mar, Type 2 diabetes mellitus with diabetic autonomic (poly) neuropathy E11.43 [facility] [id number] [place] [address] 37002- 4311 Mar, Type 2 diabetes mellitus without complications E11.9 [facility] [id number] [place] [address] 76358- 1558 Mar, Neuropathy G62.9 [facility] [id number] [place] [address] 54420- 3108 Mar, [facility] [id number] [place] [address] 95130- 1037 Mar, Breast cancer screening Z12.39 [facility] [address] 02914- 8228 Mar, Other dorsalgia M54.89 [facility] [id number] [place] [address] 25400- 4466 Feb, [facility] [id number] [place] [address] 64891- 5872 30 Jan, 2016 Neuropathy G62.9 ; Type 2 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 ; Uncomplicated asthma, unspecified asthma severity J45.909 and Encounter for immunization Z23 [facility] [id number] [place] [address] 01560- 1919 09 Jan, 2016 [facility] [id number] [place] [address] 43824- 7490 Jan, [facility] [id number] [place] [address] 92059- 2290 Dec, [facility] [id number] [place] [address] 41777- 4686 Dec, [facility] [id number] [place] [address] 14076- 0959 Nov, [facility] [id number] [place] [address] 42134- 1969 Nov, Back pain M54.9 [facility] [id number] [place] [address] 65879- 7488 Nov, Neuropathy G62.9 ; Mixed hyperlipidemia E78.2 ; Type 2 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 and skilled nursing 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 Z79.4 [facility] [id number] [place] [address] 07330- 2862 Oct, [facility] [id number] [place] [address] 37487- 8277 Oct, Other dorsalgia M54.89 [facility] [id number] [place] [address] 86235- 3109 September, Primary insomnia F51.01 [facility] [id number] [place] [address] 44458- 4103 September, [facility] [id number] [place] [address] 81692- 5500 Aug, Other dorsalgia M54.89 [facility] [id number] [place] [address] 29720- 9417 Jul, [facility] [address] [address]252- [address]1 Jul, Other dorsalgia M54.89 [facility] [address] 10270- 3662 Jul, Diabetes E11.9 ; Back pain M54.9 ; Neuropathy G62.9 and Gastroparesis K31.84 [facility] [address] 77887- 1228 Jun, [facility] [address] 25169- 6926 Jun, Other dorsalgia M54.89 [facility] [address] 57500- 0351 May, [facility] [address] 26745- 5881 May, Radicular leg pain M54.10 and Other dorsalgia M54.89 [facility] [id number] [place] [address] 21886- 3980 Apr, [facility] [id number] [place] [address] 98539- 0213 Mar, [facility] [address] 12183- 8878 Mar, [facility] [id number] [place] [address] 31356- 2865 Mar, Radicular leg pain M54.10 [facility] [id number] [place] [address] 41710- 8140 Feb, [facility] [id number] [place] [address] 41367- 9051 Feb, [facility] [address] 00749- 5257 Feb, [facility] [id number] [place] [address] 69030- 9508 Jan, [facility] [id number] [place] [address] 76775- 0034 Jan, IBS (irritable bowel syndrome) 564.1 [facility] [id number] [place] [address] 33312- 9720 Jan, [facility] [id number] [place] [address] 44776- 0963 Jan, [facility] [id number] [place] [address] 57493- 6839 Jan, Diabetes mellitus without mention of complication, type II or unspecified type, not stated as uncontrolled 250.00 ; Gastroparesis 536.3 and Hypoacusis 389.9 [facility] [id number] [place] [address] 57786- 4085 Jan, [facility] [id number] [place] [address] 12048- 9126 Jan, [facility] [id number] [place] [address] 51399- 8204 Dec, [facility] [id number] [place] [address] 83640- 5801 Dec, [facility] [id number] [place] [address] 71124- 7985 Dec, [facility] [id number] [place] [address] 11209- 3501 Dec, Back pain 724.5 and Gastroparesis 536.3 [facility] [id number] [place] [address] [id number]- 0226 Nov, [facility] [id number] [place] [address] [id number] Nov, Dental examination V72.2 [facility] [id number] [address] Nov, [facility] [id number] [place] [address] 11195- 1889 Nov, [facility] [id number] [address] Nov, Depressive disorder, not elsewhere classified 311 and No condition on Warren II V71.09 [facility] [address] [id number] [place] [id number]- 2591 Nov, Diabetes 250.00 and Symptomatic menopausal or female climacteric states 627.2 [facility] [id number] [place] [address] 67256- 0742 Oct, [facility] [id number] [place] [address]987- 7088 Oct, Lumbar strain 847.2 [facility] [id number] [place] [address] 14432- 4757 Oct, Gastroparesis 536.3 and Unspecified myalgia and myositis 729.1 [facility] [address] [address] Aug, [facility] [address], [place] [address] Aug, [facility] [address], [place] [address] Jul, [facility] [address], [place] [address] Jul, [facility] [id number] [place] [address] [id number]- 0284 Jul, [facility] [address], [place] [address] 1491 Jul, [facility] [id number] [place] [address] [id number] Jul, [facility] [place] [facility] [address] [id number] [place] [address] 5996 Jun, [facility] [place] [facility] [address] [id number] [place] [address]- 4460 Jun, [facility] [place] [facility] [address] [id number] [place] [address] 3050 Jun, [facility] [place] [facility] [address] [id number] [place] [address]- 3326 May, [facility] [place] [facility] [address] [id number] [place] [address] 5316 May, [facility] [place] [facility] [address] [id number] [place] [address]- 5419 Mar, [facility] [place] [facility] [address] [id number] [place] [address]- 4044 Mar, [facility] [place] [facility] [address] [id number] [place] [address]- 3789 Mar, [facility] [place] [facility] [address] [id number] [place] [address]- 9496 Mar, [facility] [place] [facility] [address] [id number] [place] [address]- 4016 Mar, [facility] [place] [facility] [address] [id number] [place] [address]- 9315 Mar, [facility] [place] [facility] [address] [id number], [place] [address] 6584 Feb, [facility] [place] [facility] [address] [id number] [place] [address]- 3947 Feb, [facility] [place] [facility] [address] [id number] [place] [address]- 8976 Nov, [facility] [place] [facility] [address] [id number] [place] [address]- 9848 Nov, [facility] [place] [facility] [address] [id number] [place] [address]- 4767 11 Nov, 2012 [facility] [address] [id number] [place] [address]- 8073 Oct, [facility] [address] [id number] [place] [address]- 9795 September, [facility] [address] [id number] [place] [address]- 2708 Aug, [facility] [address] [id number] [place] [address]- 1121 15 Aug, 2012 [facility] [address] [id number] [place] [address]- 0541 Aug, [facility] [address] [id number] [place] [address]- 5960 Aug, [facility] [address] [id number] [place] [address]- 6753 Aug, [facility] [address] [id number] [place] [address]- 4327 Aug, [facility] [address] [id number] [place] [address]- 1633 Aug, [facility] [address] [id number] [place] [address]- 8568 Aug, [facility] [address] [id number] [place] [address]- 8746 Jul, [facility] [address] [id number] [place] [address]- 2845 Jul, [facility] [address] [id number] [place] [address]- 2485 Jun, [facility] [address] [id number] [place] [address]- 4766 Jun, [facility] [address] [id number] [place] [address] Jun, [facility] [address] [id number] [address] 08 Jun, 2012 [facility] [address], [place] [address]- 3938 Jun, [facility] [address], [place] [address]- 8265 Jun, [facility] [address], [place] [address]- 8965 Jun, [facility] [address], [place] [address]- 4266 May, [facility] [address], [place] [address]- 9629 May, [facility] [address], [place] [address]- 4283 May, [facility] [address], [place] [address]- 6016 May, [facility] [address], [place] [address]- 2179 Mar, [facility] [address] [id number], [place] [address]- [address] Mar, [facility] [address] [id number], [place] [address]- [address] Jan, IMMUNIZATIONS No Known Immunizations SOCIAL HISTORY Never Assessed REASON FOR VISIT Marinol- 08/26 PLAN OF CARE VITAL SIGNS MEDICATIONS Medication [...] vomitting-[facility] 03/05/17 Hospitalization History hospital stay at [facility] for stomach issues 2016
--- OUTSIDE RECORDS SUMMARY | 2018-01-27 20:01 | XMS REPORT ---
Author Author HORACE HIGGINS [facility] Address [address] [place] [address] Care Team Providers Care Picc Nurse Name Role Phone HORACE HIGGINS Unavailable PROBLEMS Type Condition ICD9-CM Code SIC24-YR Code Onset Dates Condition Status SNOMED Code Problem History of colon polyps Z86.010 Active 897308908 Problem Asthma exacerbation J45.901 Active 476054081 Problem Primary insomnia F51.01 Active 2636161 Problem Tobacco dependency F17.200 Active 96301904 Problem Low TSH level R94.6 Active 988386167 Problem Annual physical exam Z00.00 Active 354949631 Problem Diabetic polyneuropathy associated with type 2 diabetes mellitus E11.42 Active 73258671 Problem Reactive depression F32.9 Active 47270119 Problem Migraine without aura and without status migrainosus, not intractable G43.009 Active 067774695 Problem PTSD (post-traumatic stress disorder) F43.10 Active 09602622 Problem Diabetes E11.9 Active 11623088 Problem Gastroparesis K31.84 Active 418565367 Problem Back pain M54.9 Active 454097874 Problem Neuropathy G62.9 Active 568562389 Problem Type 2 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 Active 51094898 Problem Uncomplicated asthma, unspecified asthma severity J45.909 Active 193296383 Problem halfway 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 Z79.4 Active 156530365 Problem Anorexia R63.0 Active 84448097 Problem Mixed hyperlipidemia E78.2 Active 597524337 Problem Weight loss R63.4 Active 493904740 ALLERGIES No Information ENCOUNTERS Encounter Location Date Diagnosis [facility] [id number] [address] Jan, [facility] [id number] [address] Dec, [facility] [address] [id number] Nov, [facility] [id number] [place] [address] 37035 2546 Nov, Other dorsalgia M54.89 [facility] [id number] [place] [address] 21316 2546 Nov, LLQ pain R10.32 ; Low TSH level R94.6 and Gastroparesis K31.84 [facility] [id number] [place] [address] 58762 2546 Nov, Anorexia R63.0 [place] [address] 4[address]- 8906 Nov, Asthma exacerbation J45.901 [facility] [id number] [place] [address] 39243- 2183 Oct, PTSD (post-traumatic stress disorder) F43.10 [facility] [id number] [place] [address] 51317 2546 Oct, [facility] [id number] [place] [address] 00386 2548 Oct, PTSD (post-traumatic stress disorder) F43.10 and Tobacco dependency F17.200 [facility] [id number] [place] [address] 62817 2546 Oct, [facility] [id number] [place] [address] 61581 2549 Oct, Other dorsalgia M54.89 [facility] [id number] [place] [address] 46047 2546 04 Oct, 2017 Anorexia R63.0 [facility] [id number] [place] [address] 14818 2545 September, PTSD (post-traumatic stress disorder) F43.10 [facility] [id number] [place] [address] 75563- 4343 September, Low TSH level R94.6 [facility] [address] 68448- 5747 September, Other dorsalgia M54.89 [place] [address] 244160- 1745 September, Annual physical exam Z00.00 and Migraine without aura and without status migrainosus, not intractable G43.009 [facility] [facility] [address] 244162 2574 September, Abnormal TSH R94.6 and Dysfunction of left eustachian tube H69.82 [facility] [address] 244166- 1887 Aug, [place] [address] 54737 8088 Aug, Anorexia R63.0 [facility] [id number] Aug, Dental examination Z01.20 and Xerostomia K11.7 [place] [address] 07638- 8583 Aug, Neuropathy G62.9 [place] [address] 27785- 6405 Aug, [place] [address] 17699- 7056 Aug, Other dorsalgia M54.89 [facility] [address] 46846- 9508 Aug, Type 2 diabetes mellitus with diabetic autonomic (poly) neuropathy E11.43 ; Diabetic polyneuropathy associated with type 2 diabetes mellitus E11.42 ; Bronchitis J40 ; Gastroparesis K31.84 and Reactive depression F32.9 [facility] [address] 25572- 4544 Aug, PTSD (post-traumatic stress disorder) F43.10 [facility] [address] [place] [address] 97933 2546 Aug, Other dorsalgia M54.89 and Anorexia R63.0 [facility] [id number] [place] [address] 15127 2546 Jul, [facility] [id number] [place] [address] 18958 2546 Jul, Other dorsalgia M54.89 [facility] [id number] [place] [address] 86561 2546 Jul, [facility] [id number] [place] [address] 63227 2546 Jul, [facility] [id number] [place] [address] 58870 2546 Jul, PTSD (post-traumatic stress disorder) F43.10 [facility] [id number] [place] [address] 29211 2546 Jul, [facility] [id number] [place] [address] 30171 2546 Jul, [facility] [id number] [place] [address] 09671 2546 Jul, [facility] [id number] [place] [address] 06636 2546 Jul, Anorexia R63.0 [facility] [id number] [place] [address] 10769 2546 Jun, [facility] [id number] [place] [address] 88320 2546 Jun, Vaginal discharge N89.8 ; Visit for gynecologic examination Z01.419 and Pelvic pressure in female R10.2 [facility] [id number] [place] [address] 08667- 6536 Jun, [facility] [id number] [place] [address] 47225- 7856 Jun, Other dorsalgia M54.89 [facility] [id number] [place] [address] 80844- 9254 Jun, [facility] [id number] [place] [address] 79089- 3301 Jun, [facility] [id number] [place] [address] 97315- 5625 Jun, [facility] [id number] [place] [address] 11533- 4989 May, Back pain M54.9 [facility] [address] 33138- 5833 May, Anorexia R63.0 [facility] [address] 16635- 0617 May, Other dorsalgia M54.89 [facility] [id number] [place] [address] 40716- 6801 May, [facility] [id number] [place] [address] 30985- 2104 May, Bronchitis J40 [facility] [id number] [place] [address] 79232- 0412 May, Type 2 diabetes mellitus with diabetic autonomic (poly) neuropathy E11.43 ; halfway 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 Z79.4 ; Back pain M54.9 and Neuropathy G62.9 [facility] [id number] [place] [address] 29959- 2787 May, Left breast mass N63.20 [facility] [address] 35182- 1378 May, [facility] [id number] [place] [address] 42432- 7921 Apr, Other dorsalgia M54.89 [facility] [id number] [place] [address] 60443- 0597 Apr, Anorexia R63.0 [facility] [id number] [place] [address] 36826- 5696 Apr, Anorexia R63.0 [facility] [id number] [place] [address] 64907- 4100 Apr, Mass of left breast N63.20 [facility] [address] 85985- 8810 Apr, [facility] [id number] [place] [address] 18068- 4137 Apr, [facility] [address] 20955- 8893 Apr, Diarrhea of presumed infectious origin A09 [facility] [address] 91848- 5702 Apr, Encounter for immunization Z23 [facility] [id number] [place] [address] 70309- 4114 Apr, [facility] [id number] [place] [address] 68967- 3608 Mar, Other dorsalgia M54.89 [facility] [id number] [place] [address] 31827- 3492 Mar, [facility] [id number] [place] [address] 61792- 4682 Mar, [facility] [id number] [place] [address] 17239- 2540 Mar, Anorexia R63.0 [facility] [address] 99917- 4825 Mar, [facility] [id number] [place] [address] 86582- 254 Mar, Other dorsalgia M54.89 [facility] [address] 40220- 1012 Mar, [facility] [id number] [place] [address] 35785- 6942 Mar, Encounter for immunization Z23 [facility] [address] 85079- 9963 Feb, Anorexia R63.0 [facility] [address] 79236- 2055 Feb, Diabetes E11.9 [facility] [address] 12663- 6084 Feb, Back pain M54.9 and Diabetes E11.9 [facility] [address] 98480- 3692 Feb, Diabetes E11.9 [facility] [address] 97156- 9543 Feb, Neuropathy G62.9 [facility] [address] 03267- 5842 Feb, Encounter for immunization Z23 ; Epigastric pain R10.13 ; Weight loss, abnormal R63.4 and Neuropathy G62.9 [facility] [place] [address] [id number] Feb, [facility] [id number] [place] [address] 60932- 2464 Feb, [facility] [id number] [place] [address] 55782- 3384 Feb, Intractable vomiting with nausea, unspecified vomiting type R11.2 [facility] [address] 31982 -3084 Feb, Chronic nausea R11.0 [facility] [id number] [place] [address] 93762- 9227 Feb, Other dorsalgia M54.89 [facility] [address] 10749 2546 Jan, [facility] [id number] [place] [address] 73263 2546 Jan, [facility] [id number] [place] [address] 90704 2546 Jan, [facility] [id number] [place] [address] 69499 2546 Jan, [facility] [id number] [place] [address] 47878 2546 Jan, Asthma exacerbation J45.901 ; Bronchitis J40 and Neuropathy G62.9 [facility] [id number] [place] [address] 10041 2546 Jan, Anorexia R63.0 [facility] [id number] [place] [address] 99191- 2336 Jan, Other dorsalgia M54.89 [facility] [id number] [place] [address] 61942- 5696 Dec, [facility] [id number] [place] [address] 16396- 6014 Dec, [facility] [id number] [place] [address] 07683- 5815 Dec, Anorexia R63.0 [facility] [id number] [place] [address] 45624 2546 Dec, Primary insomnia F51.01 [facility] [id number] [place] [address] 13237 2547 Dec, Other dorsalgia M54.89 [facility] [id number] [place] [address] 53073 2546 Dec, [facility] [id number] [place] [address] 52622 2546 Nov, [facility] [id number] [place] [address] 34497- 8059 Nov, [facility] [id number] [place] [address] 16449- 4292 Nov, [facility] [id number] [place] [address] 30844- 8705 Nov, History of colon polyps Z86.010 [facility] [id number] [place] [address] 78475- 2758 Nov, Weight loss R63.4 ; Nausea and vomiting, intractability of vomiting not specified, unspecified vomiting type R11.2 and Abnormal LFTs R79.89 [facility] [id number] [place] [address] 22101- 8654 Nov, [facility] [id number] [place] [address] 67363- 9317 Nov, Neuropathy G62.9 and Pain in right knee M25.561 [place] [id number] [place] [address] 70256- 3501 Nov, Back pain M54.9 [facility] [id number] [place] [address] 73644- 7026 Nov, [facility] [id number] [place] [address] 75217- 0163 Nov, Bronchitis J40 [facility] [id number] [place] [address] 18951- 4217 Nov, Weight loss R63.4 [facility] [id number] [place] [address] 77421- 8817 Oct, Back pain M54.9 [facility] [id number] [place] [address] 91176- 7506 16 Oct, 2016 [facility] [id number] [place] [address] 59159- 2819 14 Oct, 2016 Back pain M54.9 [facility] [id number] [place] [address] 94058- 9668 Oct, Type 2 diabetes mellitus without complications E11.9 and Bronchitis J40 [facility] [id number] [place] [address] 27322- 6259 Oct, [facility] [id number] [place] [address] 61614- 8011 Oct, [facility] [address] 77028- 1927 September, Gastroparesis K31.84 ; Type 2 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 and Neuropathy G62.9 [place] [address] 02440- 4448 September, Other dorsalgia M54.89 [place] [id number] [place] [address] 75802- 8904 September, [facility] [address] 07750- 9710 September, [facility] [id number] [place] [address] 16666- 5961 Aug, Gastroparesis K31.84 and Radicular leg pain M54.10 [facility] [id number] [place] [address] 08814- 7043 Aug, Anorexia R63.0 [facility] [id number] [place] [address] 32975- 9120 Aug, Bronchitis J40 [facility] [id number] [place] [address] 22628- 3401 Aug, Back pain M54.9 [facility] [address] 90167- 1866 Aug, Routine gynecological examination Z01.419 ; Routine screening for STI (sexually transmitted infection) Z11.3 and Yeast infection of the vagina B37.3 [facility] [id number] [place] [address] 37601- 4073 Jul, Other dorsalgia M54.89 [facility] [id number] [place] [address] 19524- 5727 Jul, Diabetes E11.9 and Gastroparesis K31.84 [facility] [id number] [place] [address] 79612- 2493 Jun, [facility] [address] 57331- 7154 Jun, Back pain M54.9 [facility] [address] 70416- 3374 Jun, Neuropathy G62.9 [facility] [address] [id number] Jun, Encounter for dental examination Z01.20 [facility] [address] 33728- 6429 Jun, Gastroparesis 536.3 and Anorexia R63.0 [facility] [id number] [place] [address] 05765- 0331 May, Other dorsalgia M54.89 [facility] [address] 85333- 6186 May, Periumbilical abdominal pain R10.33 ; Weight loss R63.4 and Gastroparesis K31.84 [facility] [id number] [place] [address] 90285- 7099 May, Back pain M54.9 [facility] [id number] [place] [address] 76859- 7265 Apr, Anorexia R63.0 [facility] [address] 78452- 7835 Apr, Anorexia R63.0 [facility] [id number] [place] [address] 86304- 1738 Apr, Back pain M54.9 [facility] [id number] [place] [address] 25372- 0335 Apr, Back pain M54.9 [facility] [id number] [place] [address] 44417- 3466 Apr, [facility] [id number] [place] [address] 00456- 4582 Apr, Bronchitis J40 and Neuropathy G62.9 [facility] [id number] [place] [address] 67318- 2964 Apr, Neuropathy G62.9 [facility] [id number] [place] [address] 50462- 1700 Apr, [facility] [id number] [place] [address] 65078- 7347 Apr, Back pain M54.9 [facility] [address] 96095- 6581 Mar, Type 2 diabetes mellitus with diabetic autonomic (poly) neuropathy E11.43 [facility] [id number] [place] [address] 85415- 6531 Mar, Type 2 diabetes mellitus without complications E11.9 [facility] [id number] [place] [address] 36092- 8507 Mar, Neuropathy G62.9 [facility] [id number] [place] [address] 39023- 1690 Mar, [facility] [id number] [place] [address] 81929- 2194 Mar, Breast cancer screening Z12.39 [facility] [address] 62308- 2697 Mar, Other dorsalgia M54.89 [facility] [id number] [place] [address] 50531- 3297 Feb, [facility] [id number] [place] [address] 25784- 3419 30 Jan, 2016 Neuropathy G62.9 ; Type 2 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 ; Uncomplicated asthma, unspecified asthma severity J45.909 and Encounter for immunization Z23 [facility] [id number] [place] [address] 97121- 4011 09 Jan, 2016 [facility] [id number] [place] [address] 70395- 4255 Jan, [facility] [id number] [place] [address] 16292- 2421 Dec, [facility] [id number] [place] [address] 84094- 4197 Dec, [facility] [id number] [place] [address] 89139- 2397 Nov, [facility] [id number] [place] [address] 39787- 7638 Nov, Back pain M54.9 [facility] [id number] [place] [address] 39969- 7227 Nov, Neuropathy G62.9 ; Mixed hyperlipidemia E78.2 ; Type 2 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 and halfway 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 Z79.4 [facility] [id number] [place] [address] 83037- 3362 Oct, [facility] [id number] [place] [address] 58807- 4767 Oct, Other dorsalgia M54.89 [facility] [id number] [place] [address] 27641- 0932 September, Primary insomnia F51.01 [facility] [id number] [place] [address] 38274- 2311 September, [facility] [id number] [place] [address] 84173- 1255 Aug, Other dorsalgia M54.89 [facility] [id number] [place] [address] 52522- 5270 Jul, [facility] [address] 78499- 3641 Jul, Other dorsalgia M54.89 [facility] [address] 40368- 1125 Jul, Diabetes E11.9 ; Back pain M54.9 ; Neuropathy G62.9 and Gastroparesis K31.84 [facility] [address] 75664- 5802 Jun, [facility] [address] 71187- 2001 Jun, Other dorsalgia M54.89 [facility] [address] 89416- 2147 May, [facility] [address] 92194- 6615 May, Radicular leg pain M54.10 and Other dorsalgia M54.89 [facility] [id number] [place] [address] 54308- 5926 Apr, [facility] [id number] [place] [address] 12732- 5595 Mar, [facility] [address] 75700- 8773 Mar, [facility] [id number] [place] [address] 04824- 7411 Mar, Radicular leg pain M54.10 [facility] [id number] [place] [address] 52473- 3614 Feb, [facility] [id number] [place] [address] 61381- 4379 Feb, [facility] [address] 95197- 5084 Feb, [facility] [id number] [place] [address] [phone]- [phone] Jan, [facility] [id number] [place] [address] 18903- 9157 Jan, IBS (irritable bowel syndrome) 564.1 [facility] [id number] [place] [address] [phone]- [phone] Jan, [facility] [id number] [place] [address] [id number]- [phone] Jan, [facility] [id number] [place] [address] [phone]- 5014 Jan, Diabetes mellitus without mention of complication, type II or unspecified type, not stated as uncontrolled 250.00 ; Gastroparesis 536.3 and Hypoacusis 389.9 [facility] [id number] [place] [address] [phone]- [phone] Jan, [facility] [id number] [place] [address] 32791- 2599 Jan, [facility] [id number] [place] [address] 47069- 3110 Dec, [facility] [id number] [place] [address] 20801- 9624 Dec, [facility] [id number] [place] [address] [id number]- [id number] Dec, [facility] [id number] [place] [address] 07774- 3958 Dec, Back pain 724.5 and Gastroparesis 536.3 [facility] [id number] [place] [address] [id number] Nov, [facility] [id number] [place] [address] [id number] Nov, Dental examination V72.2 [facility] [address] [address] Nov, [facility] [id number] [place] [address]- [address]3 Nov, [facility] [address] [address] Nov, Depressive disorder, not elsewhere classified 311 and No condition on Sorento II V71.09 [facility] [id number] [place] [address]24- 6694 Nov, Diabetes 250.00 and Symptomatic menopausal or female climacteric states 627.2 [facility] [id number] [place] [address] 19095- 4753 Oct, [facility] [id number] [place] [address] 14442- 2561 Oct, Lumbar strain 847.2 [facility] [id number] [place] [address] [id number]- 1899 Oct, Gastroparesis 536.3 and Unspecified myalgia and myositis 729.1 [facility] [address] [address] Aug, [facility] [id number] [address] Aug, [facility] [address] [address] Jul, [facility] [id number] [address] Jul, [facility] [id number] [place] [address] [id number]- [id number] Jul, [facility] [address] [address] Jul, [facility] [id number] [place] [address] [id number] Jul, [facility] [place] [facility] [address] [id number] [place] [address] Jun, [facility] [place] [facility] [address] [id number] [place] [address]- 8297 Jun, [facility] [place] [facility] [address] [id number] [place] [address]- 6582 Jun, [facility] [place] [facility] [address] [id number] [place] [address]- 2788 May, [facility] [place] [facility] [address] [id number] [place] [address] 3621 May, [facility] [place] [facility] [address] [id number] [place] [address]- 5864 Mar, [facility] [place] [facility] [address] [id number] [place] [address]- 4139 Mar, [facility] [place] [facility] [address] [id number] [place] [address]- 4534 Mar, [facility] [place] [facility] [address] [id number] [place] [address]- 2780 Mar, [facility] [place] [facility] [address] [id number] [place] [address]- 1405 Mar, [facility] [place] [facility] [address] [id number] [place] [address] 4173 Mar, [facility] [place] [facility] [address] [id number] [address] Feb, [facility] [place] [facility] [address] [id number] [place] [address]- 6140 Feb, [facility] [place] [facility] [address] [id number] [place] [address]- 9548 Nov, [facility] [place] [facility] [address] [id number] [place] [address]- 6684 Nov, [facility] [place] [facility] [address] [id number] [place] [address]- 8281 11 Nov, 2012 [facility] [address] [id number] [place] [address] 1330 Oct, [facility] [address] [id number] [place] [address] 6112 September, [facility] [address] [id number] [place] [address]- 7995 Aug, [facility] [address] [id number] [place] [address]- 6617 15 Aug, 2012 [facility] [address] [id number] [place] [address]- 8976 Aug, [facility] [address] [id number] [place] [address]- 3962 Aug, [facility] [address] [id number] [place] [address]- 0985 Aug, [facility] [address] [id number] [place] [address]- 7540 Aug, [facility] [address] [id number] [place] [address]- 6497 Aug, [facility] [address] [id number] [place] [address]- 1355 Aug, [facility] [address] [id number] [place] [address]- 8875 Jul, [facility] [address] [id number] [place] [address]- 4305 Jul, [facility] [address] [id number] [place] [address]- 6938 Jun, [facility] [address] [id number] [place] [address]- 8530 Jun, [facility] [address] [id number] [place] [address] Jun, [facility] [id number] [address] 08 Jun, 2012 [facility] [address] [address]- [address] Jun, [facility] [id number] [address] Jun, [facility] [address] [address]- 1452 Jun, [facility] [id number] [address]- 7918 May, [facility] [id number] [address]- [address] May, [facility] [address] [address]- 9667 May, [facility] [address] [address]- 0[address] May, [facility] [address] [id number] [address]- 2612 Mar, [facility] [id number] [address]- [address] Mar, [facility] [id number] [address] Jan, IMMUNIZATIONS No Known Immunizations SOCIAL HISTORY Never Assessed REASON FOR VISIT Medication question PLAN OF CARE VITAL SIGNS MEDICATIONS Unknown [...] High blood sugar 2016 Hospitalization History DKA, vomitting-VC 03/05/17 Hospitalization History hospital stay at [facility] for stomach issues 2016
--- OUTSIDE RECORDS SUMMARY | 2018-01-27 20:01 | XMS REPORT ---
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 Name Role Phone HORACE HIGGINS Unavailable PROBLEMS Type Condition ICD9-CM Code RRE80-PZ Code Onset Dates Condition Status SNOMED Code Problem History of colon polyps Z86.010 Active 850528826 Problem Asthma exacerbation J45.901 Active 491808475 Problem Primary insomnia F51.01 Active 0552367 Problem Tobacco dependency F17.200 Active 93830656 Problem Low TSH level R94.6 Active 856118605 Problem Annual physical exam Z00.00 Active 496742703 Problem Diabetic polyneuropathy associated with type 2 diabetes mellitus E11.42 Active 36293369 Problem Reactive depression F32.9 Active 90609532 Problem Migraine without aura and without status migrainosus, not intractable G43.009 Active 969910803 Problem PTSD (post-traumatic stress disorder) F43.10 Active 25484259 Problem Diabetes E11.9 Active 10466201 Problem Gastroparesis K31.84 Active 113394389 Problem Back pain M54.9 Active 465960377 Problem Neuropathy G62.9 Active 680526477 Problem Type 2 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 Active 63138568 Problem Uncomplicated asthma, unspecified asthma severity J45.909 Active 298557368 Problem residential 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 Z79.4 Active 019433354 Problem Anorexia R63.0 Active 53774800 Problem Mixed hyperlipidemia E78.2 Active 124165653 Problem Weight loss R63.4 Active 267999162 ALLERGIES No Information ENCOUNTERS Encounter Location Date Diagnosis [facility] [id number], [place] [address] Jan, [facility] [id number] [address] Dec, [facility] [address] [id number] Nov, [facility] [id number] [place] [address] 89994 2546 Nov, Other dorsalgia M54.89 [facility] [id number] [place] [address] 62466 2546 Nov, LLQ pain R10.32 ; Low TSH level R94.6 and Gastroparesis K31.84 [facility] [id number] [place] [address] 00191 2546 Nov, Anorexia R63.0 [place] [address] 59589- 7486 Nov, Asthma exacerbation J45.901 [facility] [id number] [place] [address] 13449- 4440 Oct, PTSD (post-traumatic stress disorder) F43.10 [facility] [id number] [place] [address] 29147 2546 Oct, [facility] [id number] [place] [address] 25368 2547 Oct, PTSD (post-traumatic stress disorder) F43.10 and Tobacco dependency F17.200 [place] [id number] [place] [address] 10022 2546 Oct, [facility] [id number] [place] [address] 70507 2549 Oct, Other dorsalgia M54.89 [facility] [id number] [place] [address] 92006 2546 04 Oct, 2017 Anorexia R63.0 [facility] [id number] [place] [address] 61377 254 September, PTSD (post-traumatic stress disorder) F43.10 [facility] [id number] [place] [address] 46509- 2226 September, Low TSH level R94.6 [facility] [address] 18901- 9725 September, Other dorsalgia M54.89 [place] [address] [address]- 9265 September, Annual physical exam Z00.00 and Migraine without aura and without status migrainosus, not intractable G43.009 [place] [address] [address] 7827 September, Abnormal TSH R94.6 and Dysfunction of left eustachian tube H69.82 [facility] [facility] [address] 285716- 9440 Aug, [place] [address] 32665 4138 Aug, Anorexia R63.0 [facility] [id number] Aug, Dental examination Z01.20 and Xerostomia K11.7 [place] [address] 89753- 2800 Aug, Neuropathy G62.9 [place] [address] 75062- 5854 Aug, [place] [address] 42540- 2900 Aug, Other dorsalgia M54.89 [place] [address] 41704- 0402 Aug, Type 2 diabetes mellitus with diabetic autonomic (poly) neuropathy E11.43 ; Diabetic polyneuropathy associated with type 2 diabetes mellitus E11.42 ; Bronchitis J40 ; Gastroparesis K31.84 and Reactive depression F32.9 [facility] [address] 92612- 7336 Aug, PTSD (post-traumatic stress disorder) F43.10 [facility] [id number] [place] [address] 70985 2546 Aug, Other dorsalgia M54.89 and Anorexia R63.0 [facility] [id number] [place] [address] 98657 2546 Jul, [facility] [id number] [place] [address] 94302 2546 Jul, Other dorsalgia M54.89 [facility] [id number] [place] [address] 82292 2546 Jul, [facility] [id number] [place] [address] 79759 2546 Jul, [facility] [id number] [place] [address] 17890 2546 Jul, PTSD (post-traumatic stress disorder) F43.10 [facility] [id number] [place] [address] 62729 2546 Jul, [facility] [id number] [place] [address] 53606 2546 Jul, [facility] [id number] [place] [address] 67019 2546 Jul, [facility] [id number] [place] [address] 23472 2546 Jul, Anorexia R63.0 [facility] [id number] [place] [address] 97119 2546 Jun, [facility] [id number] [place] [address] 58507 2546 Jun, Vaginal discharge N89.8 ; Visit for gynecologic examination Z01.419 and Pelvic pressure in female R10.2 [facility] [id number] [place] [address] 91622- 2766 Jun, [facility] [id number] [place] [address] 30892- 5276 Jun, Other dorsalgia M54.89 [facility] [id number] [place] [address] 48263- 8495 Jun, [facility] [id number] [place] [address] 55396- 6326 Jun, [facility] [id number] [place] [address] 48177- 4509 Jun, [facility] [id number] [place] [address] 10964- 0764 May, Back pain M54.9 [facility] [address] 39683- 8436 May, Anorexia R63.0 [facility] [address] 25862- 6923 May, Other dorsalgia M54.89 [facility] [id number] [place] [address] 27851- 7608 May, [facility] [id number] [place] [address] 56313- 7325 May, Bronchitis J40 [facility] [id number] [place] [address] 49980- 6361 May, Type 2 diabetes mellitus with diabetic autonomic (poly) neuropathy E11.43 ; residential 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 Z79.4 ; Back pain M54.9 and Neuropathy G62.9 [facility] [id number] [place] [address] 59942- 8095 May, Left breast mass N63.20 [facility] [address] 84267- 4603 May, [facility] [id number] [place] [address] 45769- 5742 Apr, Other dorsalgia M54.89 [facility] [id number] [place] [address] 25491- 6406 Apr, Anorexia R63.0 [facility] [id number] [place] [address] 52319- 7106 Apr, Anorexia R63.0 [facility] [id number] [place] [address] 74113- 7943 Apr, Mass of left breast N63.20 [facility] [address] 90339- 8098 Apr, [facility] [id number] [place] [address] 38415- 4991 Apr, [facility] [address] 14862- 9879 Apr, Diarrhea of presumed infectious origin A09 [facility] [address] 82362- 8947 Apr, Encounter for immunization Z23 [facility] [id number] [place] [address] 68472- 0759 Apr, [facility] [id number] [place] [address] 48609- 8818 Mar, Other dorsalgia M54.89 [facility] [id number] [place] [address] 48202- 4075 Mar, [facility] [id number] [place] [address] 92160- 3345 Mar, [facility] [id number] [place] [address] 95538- 2541 Mar, Anorexia R63.0 [facility] [address] 40209- 5820 Mar, [facility] [id number] [place] [address] 06758- 2540 Mar, Other dorsalgia M54.89 [facility] [address] 79922- 8245 Mar, [facility] [id number] [place] [address] 27511- 0965 Mar, Encounter for immunization Z23 [facility] [address] 88612- 5095 Feb, Anorexia R63.0 [facility] [address] 84541- 9675 Feb, Diabetes E11.9 [facility] [address] 39235- 5767 Feb, Back pain M54.9 and Diabetes E11.9 [facility] [address] 08440- 5990 Feb, Diabetes E11.9 [facility] [address] 61889- 7033 Feb, Neuropathy G62.9 [facility] [address] 29399- 2076 Feb, Encounter for immunization Z23 ; Epigastric pain R10.13 ; Weight loss, abnormal R63.4 and Neuropathy G62.9 [facility] [address] [id number] Feb, [facility] [id number] [place] [address] 46961- 1104 Feb, [facility] [id number] [place] [address] 57217- 3284 Feb, Intractable vomiting with nausea, unspecified vomiting type R11.2 [facility] [address] 78946 -1886 Feb, Chronic nausea R11.0 [facility] [id number] [place] [address] 41768- 8939 Feb, Other dorsalgia M54.89 [facility] [address] 75646 2546 Jan, [facility] [address] [place] [address] 38659 2546 Jan, [facility] [id number] [place] [address] 48163 2546 Jan, [facility] [id number] [place] [address] 51006 2546 Jan, [facility] [id number] [place] [address] 09370 2546 Jan, Asthma exacerbation J45.901 ; Bronchitis J40 and Neuropathy G62.9 [facility] [id number] [place] [address] 60691 2546 Jan, Anorexia R63.0 [facility] [id number] [place] [address] 76875- 5286 Jan, Other dorsalgia M54.89 [facility] [id number] [place] [address] 77577- 0286 Dec, [facility] [id number] [place] [address] 80030- 8450 Dec, [facility] [id number] [place] [address] 48102- 5888 Dec, Anorexia R63.0 [facility] [id number] [place] [address] 22242 2546 Dec, Primary insomnia F51.01 [facility] [id number] [place] [address] 29823 2543 Dec, Other dorsalgia M54.89 [facility] [id number] [place] [address] 96659 2546 Dec, [facility] [id number] [place] [address] 44650 2546 Nov, [facility] [id number] [place] [address] 84160- 8127 Nov, [facility] [id number] [place] [address] 60758- 1969 Nov, [facility] [id number] [place] [address] 13314- 0935 Nov, History of colon polyps Z86.010 [facility] [id number] [place] [address] 42820- 8752 Nov, Weight loss R63.4 ; Nausea and vomiting, intractability of vomiting not specified, unspecified vomiting type R11.2 and Abnormal LFTs R79.89 [facility] [id number] [place] [address] 58263- 5789 Nov, [facility] [id number] [place] [address] 01966- 2499 Nov, Neuropathy G62.9 and Pain in right knee M25.561 [place] [id number] [place] [address] 20748- 2757 Nov, Back pain M54.9 [facility] [id number] [place] [address] 30638- 6319 Nov, [facility] [id number] [place] [address] 74169- 1150 Nov, Bronchitis J40 [facility] [id number] [place] [address] 43986- 3837 Nov, Weight loss R63.4 [facility] [id number] [place] [address] 65712- 7023 Oct, Back pain M54.9 [facility] [id number] [place] [address] 06838- 0278 16 Oct, 2016 [facility] [id number] [place] [address] 51409- 5109 14 Oct, 2016 Back pain M54.9 [facility] [id number] [place] [address] 30470- 8997 Oct, Type 2 diabetes mellitus without complications E11.9 and Bronchitis J40 [facility] [id number] [place] [address] 53932- 8656 Oct, [facility] [id number] [place] [address] 22170- 8722 Oct, [facility] [address] 36705- 9136 September, Gastroparesis K31.84 ; Type 2 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 and Neuropathy G62.9 [place] [address] 53777- 3435 September, Other dorsalgia M54.89 [place] [id number] [place] [address] 18822- 6914 September, [facility] [address] 77339- 9484 September, [facility] [id number] [place] [address] 89436- 3599 Aug, Gastroparesis K31.84 and Radicular leg pain M54.10 [facility] [id number] [place] [address] 33602- 0449 Aug, Anorexia R63.0 [facility] [id number] [place] [address] 06688- 6890 Aug, Bronchitis J40 [facility] [id number] [place] [address] 46827- 6005 Aug, Back pain M54.9 [facility] [address] 59834- 4598 Aug, Routine gynecological examination Z01.419 ; Routine screening for STI (sexually transmitted infection) Z11.3 and Yeast infection of the vagina B37.3 [facility] [id number] [place] [address] 42103- 2608 Jul, Other dorsalgia M54.89 [facility] [id number] [place] [address] 79942- 5464 Jul, Diabetes E11.9 and Gastroparesis K31.84 [facility] [id number] [place] [address] 29707- 3908 Jun, [facility] [address] 61842- 3637 Jun, Back pain M54.9 [facility] [address] 66336- 1756 Jun, Neuropathy G62.9 [facility] [address] [id number] Jun, Encounter for dental examination Z01.20 [facility] [address] 74756- 1957 Jun, Gastroparesis 536.3 and Anorexia R63.0 [facility] [id number] [place] [address] 69284- 1317 May, Other dorsalgia M54.89 [facility] [address] 87537- 0335 May, Periumbilical abdominal pain R10.33 ; Weight loss R63.4 and Gastroparesis K31.84 [facility] [id number] [place] [address] 85318- 5424 May, Back pain M54.9 [facility] [id number] [place] [address] 24703- 7048 Apr, Anorexia R63.0 [facility] [address] 89694- 5348 Apr, Anorexia R63.0 [facility] [id number] [place] [address] 97900- 7603 Apr, Back pain M54.9 [facility] [id number] [place] [address] 44334- 3936 Apr, Back pain M54.9 [facility] [id number] [place] [address] 58736- 4276 Apr, [facility] [id number] [place] [address] 45153- 8089 Apr, Bronchitis J40 and Neuropathy G62.9 [facility] [id number] [place] [address] 83002- 0383 Apr, Neuropathy G62.9 [facility] [id number] [place] [address] 50560- 3001 Apr, [facility] [id number] [place] [address] 28904- 8128 Apr, Back pain M54.9 [facility] [address] 45393- 1602 Mar, Type 2 diabetes mellitus with diabetic autonomic (poly) neuropathy E11.43 [facility] [id number] [place] [address] 56454- 6525 Mar, Type 2 diabetes mellitus without complications E11.9 [facility] [id number] [place] [address] 09750- 0162 Mar, Neuropathy G62.9 [facility] [id number] [place] [address] 02787- 9921 Mar, [facility] [id number] [place] [address] 26143- 9637 Mar, Breast cancer screening Z12.39 [facility] [address] 52577- 6146 Mar, Other dorsalgia M54.89 [facility] [id number] [place] [address] 11639- 3314 Feb, [facility] [id number] [place] [address] 08190- 9327 30 Jan, 2016 Neuropathy G62.9 ; Type 2 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 ; Uncomplicated asthma, unspecified asthma severity J45.909 and Encounter for immunization Z23 [facility] [id number] [place] [address] 07028- 4019 09 Jan, 2016 [facility] [id number] [place] [address] 73430- 0673 Jan, [facility] [id number] [place] [address] 18414- 4535 Dec, [facility] [id number] [place] [address] 45390- 2051 Dec, [facility] [id number] [place] [address] 31528- 6102 Nov, [facility] [id number] [place] [address] 34719- 0667 Nov, Back pain M54.9 [facility] [id number] [place] [address] 39433- 0764 Nov, Neuropathy G62.9 ; Mixed hyperlipidemia E78.2 ; Type 2 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 and residential 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 Z79.4 [facility] [id number] [place] [address] 28976- 3791 Oct, [facility] [id number] [place] [address] 31574- 8214 Oct, Other dorsalgia M54.89 [facility] [id number] [place] [address] 51460- 5922 September, Primary insomnia F51.01 [facility] [id number] [place] [address] 11425- 5695 September, [facility] [id number] [place] [address] 85287- 3187 Aug, Other dorsalgia M54.89 [facility] [id number] [place] [address] 03022- 0730 Jul, [facility] [address] 98485- 8905 Jul, Other dorsalgia M54.89 [facility] [address] 74987- 1593 Jul, Diabetes E11.9 ; Back pain M54.9 ; Neuropathy G62.9 and Gastroparesis K31.84 [facility] [address] 45884- 3989 Jun, [facility] [address] 37890- 7558 Jun, Other dorsalgia M54.89 [facility] [address] 85044- 3516 May, [facility] [address] 30085- 5981 May, Radicular leg pain M54.10 and Other dorsalgia M54.89 [facility] [id number] [place] [address] 57955- 6960 Apr, [facility] [id number] [place] [address] 71435- 1914 Mar, [facility] [address] 77948- 4712 Mar, [facility] [id number] [place] [address] 54037- 2913 Mar, Radicular leg pain M54.10 [facility] [id number] [place] [address] 65400- 6030 Feb, [facility] [id number] [place] [address] 08626- 1004 Feb, [facility] [address] 11083- 4946 Feb, [facility] [id number] [place] [address] 91239- 4776 Jan, [facility] [id number] [place] [address] 89041- 9581 Jan, IBS (irritable bowel syndrome) 564.1 [facility] [id number] [place] [address] 94083- 9166 Jan, [facility] [id number] [place] [address] 67228- 4208 Jan, [facility] [id number] [place] [address] [phone] Jan, Diabetes mellitus without mention of complication, type II or unspecified type, not stated as uncontrolled 250.00 ; Gastroparesis 536.3 and Hypoacusis 389.9 [facility] [id number] [place] [address] 48725- [phone] Jan, [facility] [id number] [place] [address] [phone]- [phone] Jan, [facility] [id number] [place] [address] [phone]- [phone] Dec, [facility] [id number] [place] [address] [phone]- 8828 Dec, [facility] [id number] [place] [address] [phone]- 9843 Dec, [facility] [id number] [place] [address] 97833- 2937 Dec, Back pain 724.5 and Gastroparesis 536.3 [facility] [id number] [place] [address] [id number] Nov, [facility] [id number] [place] [address] [id number] Nov, Dental examination V72.2 [facility] [address] [place] [address] Nov, [facility] [id number] [place] [address] 40425- [phone] Nov, [facility] [address] [place] [address] Nov, Depressive disorder, not elsewhere classified 311 and No condition on [place] II V71.09 [facility] [id number] [place] [address] 66127- 6712 Nov, Diabetes 250.00 and Symptomatic menopausal or female climacteric states 627.2 [facility] [id number] [place] [address] 58776- 6646 Oct, [facility] [id number] [place] [address] 97158- 8311 Oct, Lumbar strain 847.2 [facility] [id number] [place] [address] [phone] Oct, Gastroparesis 536.3 and Unspecified myalgia and myositis 729.1 [facility] [address] [address] Aug, [facility] [id number] [place] [address] Aug, [facility] [address] [place] [address] 99[address] Jul, [facility] [address] [place] [address] 64[address] Jul, [facility] [id number] [place] [address] [id number] Jul, [facility] [id number] [place] [address] 7865 Jul, [facility] [id number] [place] [address] [phone] Jul, [facility] [place] [facility] [id number] [place] [address] Jun, [facility] [facility] [address] [id number] [place] [address] Jun, [facility] [place] [facility] [address] [id number] [place] [address] Jun, [facility] [place] [facility] [address] [id number] [place] [address] May, [facility] [place] [facility] [address] [id number] [place] [address] May, [facility] [place] [facility] [address] [id number] [place] [address] Mar, [facility] [place] [facility] [address] [id number] [place] [address] Mar, [facility] [place] [facility] [address] [id number] [place] [address] Mar, [facility] [place] [facility] [address] [id number] [place] [address] Mar, [facility] [place] [facility] [address] [id number] [place] [address] Mar, [facility] [place] [facility] [address] [id number] [place] [address] Mar, [facility] [place] [facility] [address] [id number], [place] [address] Feb, [facility] [place] [facility] [address] [id number] [place] [address] Feb, [facility] [place] [facility] [address] [id number] [place] [address] Nov, [facility] [place] [facility] [address] [id number] [place] [address] Nov, [facility] [place] [facility] [address] [id number] [place] [address] 11 Nov, 2012 [facility] [address] [id number] [place] [address] Oct, [facility] [address] [id number] [place] [address] September, [facility] [address] [id number] [place] [address] Aug, [facility] [address] [id number] [place] [address] 15 Aug, 2012 [facility] [address] [id number] [place] [address] Aug, [facility] [address] [id number] [place] [address] Aug, [facility] [address] [id number] [place] [address] Aug, [facility] [address] [id number] [place] [address] Aug, [facility] [address] [id number] [place] [address] Aug, [facility] [address] [id number] [place] [address] Aug, [facility] [address] [id number] [place] [address] Jul, [facility] [address] [id number] [place] [address] Jul, [facility] [address] [id number] [place] [address] Jun, [facility] [address] [id number] [place] [address] Jun, [facility] [address] [id number] [place] [address] [address] Jun, [facility] [address] [id number], [place] [address] 08 Jun, 2012 [facility] [id number], [place] [address] Jun, [facility] [id number], [place] [address] Jun, [facility] [id number], [place] [address] Jun, [facility] [id number], [place] [address] May, [facility] [id number], [place] [address] May, [facility] [id number], [place] [address] May, [facility] [id number], [place] [address] May, [facility] [id number], [place] [address] Mar, [facility] [id number], [place] [address] Mar, [facility] [address] [id number], [place] [address] Jan, IMMUNIZATIONS No Known Immunizations SOCIAL HISTORY Never Assessed REASON FOR VISIT Oxycodone 08/15 PLAN OF CARE VITAL SIGNS MEDICATIONS Medication Instructions Dosage Frequency Start Date End Date Duration Status Oxycodone-Acetaminophen 10-325 MG Orally 4 times a day 1 tablet as needed Jul, 28 days Active RESULTS No Results [...] Surgical History hysterectomy 2007 Surgical History EGD 2016 Hospitalization History Nervous breakdown 2009 Hospitalization History pulmonary emboli and pneumonia 2014 Hospitalization History High blood sugar 2016 Hospitalization History DKA, vomitting-[facility] 03/05/17 Hospitalization History hospital stay at [facility] for stomach issues 2016
--- OUTSIDE RECORDS SUMMARY | 2018-01-27 20:02 | XMS REPORT ---
Author Author HORACE HIGGINS [facility] Address [address] [place] [address] Care Team Providers Care Strip Feeder Name Role Phone HORACE HIGGINS Unavailable PROBLEMS Type Condition ICD9-CM Code WEO57-HM Code Onset Dates Condition Status SNOMED Code Problem History of colon polyps Z86.010 Active 705813415 Problem Asthma exacerbation J45.901 Active 838541918 Problem Primary insomnia F51.01 Active 5733097 Problem Tobacco dependency F17.200 Active 32839803 Problem Low TSH level R94.6 Active 575521661 Problem Annual physical exam Z00.00 Active 637881741 Problem Diabetic polyneuropathy associated with type 2 diabetes mellitus E11.42 Active 13094165 Problem Reactive depression F32.9 Active 63673861 Problem Migraine without aura and without status migrainosus, not intractable G43.009 Active 577955622 Problem PTSD (post-traumatic stress disorder) F43.10 Active 82107897 Problem Diabetes E11.9 Active 15985072 Problem Gastroparesis K31.84 Active 016861721 Problem Back pain M54.9 Active 129745031 Problem Neuropathy G62.9 Active 076042442 Problem Type 2 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 Active 60731490 Problem Uncomplicated asthma, unspecified asthma severity J45.909 Active 661358727 Problem snf 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 Z79.4 Active 049063979 Problem Anorexia R63.0 Active 34031467 Problem Mixed hyperlipidemia E78.2 Active 724523353 Problem Weight loss R63.4 Active 371766896 ALLERGIES No Information ENCOUNTERS Encounter Location Date Diagnosis [facility] [id number] [address] Jan, [facility] [id number] [address] Dec, [facility] [id number] [id number] Nov, [facility] [id number] [place] [address] 36067- 9059 Nov, [facility] [id number] [place] [address] 47292- 8274 Nov, Other dorsalgia M54.89 [facility] [id number] [place] [address] 90171- 2388 Nov, LLQ pain R10.32 ; Low TSH level R94.6 and Gastroparesis K31.84 [facility] [id number] [place] [address] 82665- 7312 Nov, Anorexia R63.0 [facility] [id number] [place] [address] 48185- 7939 Nov, Asthma exacerbation J45.901 [facility] [id number] [place] [address] 15324- 3889 Oct, PTSD (post-traumatic stress disorder) F43.10 [facility] [address] [place] [address] 43520- 2135 Oct, [facility] [id number] [place] [address] 13672- 5807 Oct, PTSD (post-traumatic stress disorder) F43.10 and Tobacco dependency F17.200 [facility] [id number] [place] [address] 15739- 0452 Oct, [facility] [address] [place] [address] 57896- 4727 Oct, Other dorsalgia M54.89 [facility] [id number] [place] [address] 30102- 2166 Oct, Anorexia R63.0 [facility] [address] [place] [address] 29419- 7198 September, PTSD (post-traumatic stress disorder) F43.10 [facility] [address] 72342- 8796 September, Low TSH level R94.6 [facility] [address] [place] [address] September, Other dorsalgia M54.89 [facility] [address] [place] [address] 1526 September, Annual physical exam Z00.00 and Migraine without aura and without status migrainosus, not intractable G43.009 [facility] [address] [address]- 739 September, Abnormal TSH R94.6 and Dysfunction of left eustachian tube H69.82 [facility] [address] [address] 2430 Aug, [facility] [address] 98970- 8920 Aug, Anorexia R63.0 [facility] [address] [id number] Aug, Dental examination Z01.20 and Xerostomia K11.7 [facility] [address] 06186- 1045 Aug, Neuropathy G62.9 [facility] [address] 111913- 6582 Aug, [facility] [address] 93420- 6908 Aug, Other dorsalgia M54.89 [facility] [address] 664286- 7205 Aug, Type 2 diabetes mellitus with diabetic autonomic (poly) neuropathy E11.43 ; Diabetic polyneuropathy associated with type 2 diabetes mellitus E11.42 ; Bronchitis J40 ; Gastroparesis K31.84 and Reactive depression F32.9 [facility] [facility] [address] [place] [address] 26[address] Aug, PTSD (post-traumatic stress disorder) F43.10 [facility] [address] 78160 2546 Aug, Other dorsalgia M54.89 and Anorexia R63.0 [facility] [address] 91925 2546 Jul, [facility] [address] 81415 2546 Jul, Other dorsalgia M54.89 [facility] [address] 77090- 7166 Jul, [facility] [id number] [place] [address] 42143- 6866 Jul, [facility] [address] 98305- 3062 Jul, PTSD (post-traumatic stress disorder) F43.10 [facility] [id number] [place] [address] 09812- 1386 Jul, [facility] [address] 23659- 0206 Jul, [facility] [id number] [place] [address] 69502- 1506 Jul, [facility] [id number] [place] [address] 15766 2546 Jul, Anorexia R63.0 [facility] [id number] [place] [address] 97927- 0896 Jun, [facility] [id number] [place] [address] 61693- 3386 Jun, Vaginal discharge N89.8 ; Visit for gynecologic examination Z01.419 and Pelvic pressure in female R10.2 [facility] [id number] [place] [address] 96004- 6281 Jun, [facility] [id number] [place] [address] 51084- 6101 Jun, Other dorsalgia M54.89 [facility] [id number] [place] [address] 36722- 3986 Jun, [facility] [address] 33899- 5450 Jun, [facility] [address] 56916- 1924 Jun, [facility] [address] 34132- 5063 May, Back pain M54.9 [facility] [address] 28855- 8159 May, Anorexia R63.0 [facility] [address] 66002- 7388 May, Other dorsalgia M54.89 [facility] [id number] [place] [address] 46289- 2581 May, [facility] [id number] [place] [address] 10928- 6891 May, Bronchitis J40 [facility] [id number] [place] [address] 39501- 9589 May, Type 2 diabetes mellitus with diabetic autonomic (poly) neuropathy E11.43 ; 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 ; Back pain M54.9 and Neuropathy G62.9 [facility] [id number] [place] [address] 33272- 2242 May, Left breast mass N63.20 [facility] [id number] [place] [address] 78578- 8443 May, [facility] [id number] [place] [address] 06857- 8710 Apr, Other dorsalgia M54.89 [facility] [id number] [place] [address] 52125 2546 Apr, Anorexia R63.0 [facility] [address] 54653- 8576 Apr, Anorexia R63.0 [facility] [address] 34306- 9630 Apr, Mass of left breast N63.20 [facility] [address] 52333 2543 Apr, [facility] [address] 57568- 3316 Apr, [facility] [address] 53733- 8674 Apr, Diarrhea of presumed infectious origin A09 [facility] [address] 93825- 5254 Apr, Encounter for immunization Z23 [facility] [address] 66077- 3084 Apr, [facility] [id number] [place] [address] 18886- 3478 Mar, Other dorsalgia M54.89 [facility] [address] 65077 2546 Mar, [facility] [id number] [place] [address] 62455 2546 Mar, [facility] [address] 42844- 1426 Mar, Anorexia R63.0 [facility] [id number] [place] [address] 62429- 2546 Mar, [facility] [address] 06749- 1096 Mar, Other dorsalgia M54.89 [facility] [id number] [place] [address] 19775- 6414 Mar, [facility] [address] 06640- 6437 Mar, Encounter for immunization Z23 [facility] [address] 83990- 4228 Feb, Anorexia R63.0 [facility] [address] 30522- 0721 Feb, Diabetes E11.9 [facility] [address] 64773- 5653 Feb, Back pain M54.9 and Diabetes E11.9 [facility] [address] 18721- 2997 Feb, Diabetes E11.9 [facility] [address] 98523- 3236 Feb, Neuropathy G62.9 [facility] [address] 74900- 3666 Feb, Encounter for immunization Z23 ; Epigastric pain R10.13 ; Weight loss, abnormal R63.4 and Neuropathy G62.9 [facility] [place] [id number] [place] [address] [id number] Feb, [facility] [id number] [place] [address] 65079- 8699 Feb, [facility] [id number] [place] [address] 38427- 0590 Feb, Intractable vomiting with nausea, unspecified vomiting type R11.2 [facility] [id number] [place] [address] 74189 -8503 Feb, Chronic nausea R11.0 [facility] [address] 78810- 7830 Feb, Other dorsalgia M54.89 [facility] [id number] [place] [address] 60506 2546 Jan, [facility] [id number] [place] [address] 39465 2546 Jan, [facility] [id number] [place] [address] 05836 2546 Jan, [facility] [id number] [place] [address] 10829- 2546 Jan, [facility] [id number] [place] [address] 33252 2546 Jan, Asthma exacerbation J45.901 ; Bronchitis J40 and Neuropathy G62.9 [facility] [id number] [place] [address] 49520 2546 Jan, Anorexia R63.0 [facility] [address] 36647 2540 Jan, Other dorsalgia M54.89 [facility] [id number] [place] [address] 37039- 1066 Dec, [facility] [id number] [place] [address] 75512- 4130 Dec, [facility] [id number] [place] [address] 41933- 0491 Dec, Anorexia R63.0 [facility] [id number] [place] [address] 95650 2546 Dec, Primary insomnia F51.01 [facility] [id number] [place] [address] 58812 2546 Dec, Other dorsalgia M54.89 [facility] [id number] [place] [address] 55512 2546 Dec, [facility] [id number] [place] [address] 29129- 6142 Nov, [facility] [id number] [place] [address] 41368- 8985 Nov, [facility] [id number] [place] [address] 40073- 9280 Nov, [facility] [id number] [place] [address] 41362- 1042 Nov, History of colon polyps Z86.010 [facility] [id number] [place] [address] 87116- 5515 Nov, Weight loss R63.4 ; Nausea and vomiting, intractability of vomiting not specified, unspecified vomiting type R11.2 and Abnormal LFTs R79.89 [facility] [id number] [place] [address] 94669- 6365 Nov, [facility] [address] 53284- 0675 Nov, Neuropathy G62.9 and Pain in right knee M25.561 [facility] [id number] [place] [address] 97212- 7081 Nov, Back pain M54.9 [facility] [id number] [place] [address] 92560- 7818 Nov, [facility] [id number] [place] [address] 39112- 2470 Nov, Bronchitis J40 [facility] [id number] [place] [address] 44543- 0074 Nov, Weight loss R63.4 [facility] [id number] [place] [address] 96758- 5133 Oct, Back pain M54.9 [facility] [id number] [place] [address] 09308- 7101 Oct, [facility] [id number] [place] [address] 30538- 5456 14 Oct, 2016 Back pain M54.9 [facility] [id number] [place] [address] 74909- 9518 Oct, Type 2 diabetes mellitus without complications E11.9 and Bronchitis J40 [facility] [id number] [place] [address] 11318- 0947 Oct, [facility] [id number] [place] [address] 00293- 7466 Oct, [facility] [id number] [place] [address] 61800- 0796 September, Gastroparesis K31.84 ; Type 2 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 and Neuropathy G62.9 [facility] [id number] [place] [address] 42503- 5859 September, Other dorsalgia M54.89 [facility] [id number] [place] [address] 22440- 4769 September, [facility] [id number] [place] [address] 94730- 1096 September, [facility] [facility] [id number] [place] [address] 46304- 7060 Aug, Gastroparesis K31.84 and Radicular leg pain M54.10 [facility] [id number] [place] [address] 62845- 9815 Aug, Anorexia R63.0 [facility] [id number] [place] [address] 89702- 6380 Aug, Bronchitis J40 [facility] [id number] [place] [address] 03322- 2859 Aug, Back pain M54.9 [facility] [address] [place] [address] 06674- 1283 Aug, Routine gynecological examination Z01.419 ; Routine screening for STI (sexually transmitted infection) Z11.3 and Yeast infection of the vagina B37.3 [facility] [id number] [place] [address] 49237- 9835 Jul, Other dorsalgia M54.89 [facility] [address] 65616- 8828 Jul, Diabetes E11.9 and Gastroparesis K31.84 [facility] [address] 81951- 9970 Jun, [facility] [address] 01643- 5249 Jun, Back pain M54.9 [facility] [address] 39897- 6323 14 Jun, 2016 Neuropathy G62.9 [facility] [address] [id number] Jun, Encounter for dental examination Z01.20 [facility] [address] 58952- 5325 Jun, Gastroparesis 536.3 and Anorexia R63.0 [facility] [address] 40523- 9039 May, Other dorsalgia M54.89 [facility] [id number] [place] [address] 14625- 8703 May, Periumbilical abdominal pain R10.33 ; Weight loss R63.4 and Gastroparesis K31.84 [facility] [id number] [place] [address] 28228- 8529 May, Back pain M54.9 [facility] [address] 48679- 7035 Apr, Anorexia R63.0 [facility] [id number] [place] [address] 16450- 4198 Apr, Anorexia R63.0 [facility] [id number] [place] [address] 21245- 0113 16 Apr, 2016 Back pain M54.9 [facility] [address] 94252- 0185 Apr, Back pain M54.9 [facility] [id number] [place] [address] 97351- 7198 Apr, [facility] [address] 54620- 0865 Apr, Bronchitis J40 and Neuropathy G62.9 [facility] [id number] [place] [address] 49403- 6178 Apr, Neuropathy G62.9 [facility] [address] 28118- 8123 Apr, [facility] [address] 92033- 4389 Apr, Back pain M54.9 [facility] [id number] [place] [address] 38933- 1195 Mar, Type 2 diabetes mellitus with diabetic autonomic (poly) neuropathy E11.43 [facility] [id number] [place] [address] 93137- 6688 Mar, Type 2 diabetes mellitus without complications E11.9 [facility] [id number] [place] [address] 26078- 2315 Mar, Neuropathy G62.9 [facility] [id number] [place] [address] 69713- 9705 Mar, [facility] [id number] [place] [address] 53414- 9197 Mar, Breast cancer screening Z12.39 [facility] [id number] [place] [address] 44495- 6381 Mar, Other dorsalgia M54.89 [facility] [id number] [place] [address] 36505- 2018 Feb, [facility] [id number] [place] [address] 64033- 9860 30 Jan, 2016 Neuropathy G62.9 ; Type 2 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 ; Uncomplicated asthma, unspecified asthma severity J45.909 and Encounter for immunization Z23 [facility] [id number] [place] [address] 15229- 0096 Jan, [facility] [id number] [place] [address] 29849- 8267 Jan, [facility] [id number] [place] [address] 76811- 6414 Dec, [facility] [id number] [place] [address] 00960- 4386 Dec, [facility] [id number] [place] [address] 25628- 7924 Nov, [facility] [id number] [place] [address] 14502- 8052 Nov, Back pain M54.9 [facility] [id number] [place] [address] 58238- 2449 Nov, Neuropathy G62.9 ; Mixed hyperlipidemia E78.2 ; Type 2 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 and snf 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 Z79.4 [facility] [id number] [place] [address] 29058- 3915 Oct, [facility] [id number] [place] [address] 44443- 8144 Oct, Other dorsalgia M54.89 [facility] [id number] [place] [address] 60665- 9399 September, Primary insomnia F51.01 [facility] [id number] [place] [address] 07367- 9048 September, [facility] [id number] [place] [address] 20920- 7961 Aug, Other dorsalgia M54.89 [facility] [address] 80786- 7627 Jul, [facility] [id number] [place] [address] 77102- 3410 Jul, Other dorsalgia M54.89 [facility] [address] 50383- 3847 Jul, Diabetes E11.9 ; Back pain M54.9 ; Neuropathy G62.9 and Gastroparesis K31.84 [facility] [address] 89024- 1941 Jun, [facility] [address] 11766- 5539 Jun, Other dorsalgia M54.89 [facility] [address] 92446- 1174 May, [facility] [address] 89113- 9189 May, Radicular leg pain M54.10 and Other dorsalgia M54.89 [facility] [id number] [place] [address] 59355- 7646 Apr, [facility] [id number] [place] [address] 40529- 3637 Mar, [facility] [id number] [place] [address] 30562- 7882 Mar, [facility] [address] 46086- 9973 Mar, Radicular leg pain M54.10 [facility] [id number] [place] [address] 97815- 1680 Feb, [facility] [address] 87597- 3292 Feb, [facility] [id number] [place] [address] 13377- 6670 Feb, [facility] [id number] [place] [address] 740655- 5892 Jan, [facility] [id number] [place] [address] 976821- 3540 Jan, IBS (irritable bowel syndrome) 564.1 [facility] [id number] [place] [address] 11462- 4497 Jan, [facility] [id number] [place] [address] 85939- 0128 Jan, [facility] [id number] [place] [address] 59093- 5648 Jan, Diabetes mellitus without mention of complication, type II or unspecified type, not stated as uncontrolled 250.00 ; Gastroparesis 536.3 and Hypoacusis 389.9 [facility] [id number] [address] Jan, [facility] [id number] [place] [address] 55094- 3149 Jan, [facility] [id number] [place] [address] 35307- 8318 Dec, [facility] [id number] [place] [address] 06286- 1782 Dec, [facility] [id number] [address] Dec, [facility] [id number] [place] [address] 23856- 9914 Dec, Back pain 724.5 and Gastroparesis 536.3 [facility] [id number] [address] 0883 Nov, [id number] [id number] Nov, Dental examination V72.2 [facility] [id number] [address]81 Nov, [facility] [id number] [address] 6774 Nov, [facility] [id number] [place] [address] 58139- 7539 Nov, Depressive disorder, not elsewhere classified 311 and No condition on Zillah II V71.09 [facility] [id number] [place] [address] 75795- 1163 Nov, Diabetes 250.00 and Symptomatic menopausal or female climacteric states 627.2 [facility] [id number] [address]- 17[address] Oct, [facility] [id number] [place] [address] 22444- 9881 Oct, Lumbar strain 847.2 [facility] [id number] [address] 0639 Oct, Gastroparesis 536.3 and Unspecified myalgia and myositis 729.1 [facility] [id number] [address] 2747 14 Aug, 2014 [facility] [id number] [address] 12[address] Aug, [facility] [id number] [address]- 0960 Jul, [facility] [id number] [address]- 8366 Jul, [facility] [id number] [address]- 6766 Jul, [facility] [id number] [address]- 0521 Jul, [facility] [place] [facility] [address] [id number] [place] [address]- 5039 Jul, [facility] [place] [facility] [address] [id number] [place] [address]- 2998 Jun, [facility] [place] [facility] [address] [id number] [place] [address]- 8092 Jun, [facility] [place] [facility] [address] [id number] [place] [address]- 3313 Jun, [facility] [place] [facility] [address] [id number] [place] [address]- 6893 May, [facility] [place] [facility] [address] [id number] [place] [address]- 8122 May, [facility] [place] [facility] [address] [id number] [place] [address]- 1257 Mar, [facility] [place] [facility] [address] [id number] [place] [address]- 8955 Mar, [facility] [place] [facility] [address] [id number] [place] [address]- 1402 Mar, [facility] [place] [facility] [address] [id number] [place] [address]- 8173 Mar, [facility] [place] [facility] [address] [id number] [place] [address]- 5860 Mar, [facility] [place] [facility] [address] [id number] [place] [address]- 9632 Mar, [facility] [place] [facility] [address] [id number] [place] [address]- 8407 Feb, [facility] [place] [facility] [address] [id number] [place] [address]- 5821 Feb, [facility] [place] [facility] [address] [id number] [place] [address]- 1065 Nov, [facility] [place] [facility] [address] [id number] [place] [address]- 8011 11 Nov, 2012 [facility] [address] [address] [id number] [place] [address] Nov, [facility] [address] [id number] [place] [address] Oct, [facility] [address] [id number] [place] [address] September, [facility] [address] [id number] [place] [address] Aug, [facility] [address] [id number] [place] [address] Aug, [facility] [address] [id number] [place] [address] Aug, [facility] [address] [id number] [place] [address] Aug, [facility] [address] [id number] [place] [address] Aug, [facility] [address] [id number] [place] [address] Aug, [facility] [address] [id number] [place] [address] Aug, [facility] [address] [id number] [place] [address] Aug, [facility] [address] [id number] [place] [address] Jul, [facility] [address] [id number] [place] [address] Jul, [facility] [address] [id number] [place] [address] Jun, [facility] [address] [id number] [place] [address] Jun, [facility] [address] [id number] [address] Jun, [facility] [id number] [address] Jun, [facility] [id number] [address] Jun, [facility] [id number] [address] Jun, [facility] [id number] [address] Jun, [facility] [id number] [address] May, [facility] [id number] [address] May, [facility] [id number], [place] [address] May, [facility] [id number] [address] May, [facility] [id number] [address] Mar, [facility] [id number] [address] Mar, [facility] [address] [id number] [address] Jan, IMMUNIZATIONS No Known Immunizations SOCIAL HISTORY Never Assessed REASON FOR VISIT Fall PLAN OF CARE VITAL SIGNS MEDICATIONS Unknown [...] vomitting-[facility] 03/05/17 Hospitalization History hospital stay at [facility] for stomach issues 2016
--- OUTSIDE RECORDS SUMMARY | 2018-01-27 20:02 | XMS REPORT ---
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 Role Phone HORACE HIGGINS Unavailable PROBLEMS Type Condition ICD9-CM Code JRU46-JO Code Onset Dates Condition Status SNOMED Code Problem History of colon polyps Z86.010 Active 770769958 Problem Asthma exacerbation J45.901 Active 579908831 Problem Primary insomnia F51.01 Active 6634521 Problem Tobacco dependency F17.200 Active 23339336 Problem Low TSH level R94.6 Active 169159531 Problem Annual physical exam Z00.00 Active 707440150 Problem Diabetic polyneuropathy associated with type 2 diabetes mellitus E11.42 Active 06112274 Problem Reactive depression F32.9 Active 01529815 Problem Migraine without aura and without status migrainosus, not intractable G43.009 Active 095037478 Problem PTSD (post-traumatic stress disorder) F43.10 Active 03075855 Problem Diabetes E11.9 Active 12565399 Problem Gastroparesis K31.84 Active 809430274 Problem Back pain M54.9 Active 517968706 Problem Neuropathy G62.9 Active 143280205 Problem Type 2 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 Active 23386765 Problem Uncomplicated asthma, unspecified asthma severity J45.909 Active 026761875 Problem FCI 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 Z79.4 Active 790454993 Problem Anorexia R63.0 Active 69604431 Problem Mixed hyperlipidemia E78.2 Active 140625102 Problem Weight loss R63.4 Active 577914054 ALLERGIES No Information ENCOUNTERS Encounter Location Date Diagnosis [facility] [id number] [address] Jan, [facility] [id number] [address] Dec, [facility] [address] [id number] Nov, [facility] [id number] [place] [address] 10933- 6221 Nov, Other dorsalgia M54.89 [facility] [id number] [place] [address] 47144- 4456 Nov, [facility] [id number] [place] [address] 91733- 4799 Nov, LLQ pain R10.32 ; Low TSH level R94.6 and Gastroparesis K31.84 [facility] [id number] [place] [address] 12754- 8011 Nov, Anorexia R63.0 [facility] [id number] [place] [address] 66193- 2235 Nov, Asthma exacerbation J45.901 [facility] [id number] [place] [address] 01792- 2563 Oct, PTSD (post-traumatic stress disorder) F43.10 [facility] [id number] [place] [address] 29751- 5096 Oct, [facility] [id number] [place] [address] 88110- 7788 Oct, PTSD (post-traumatic stress disorder) F43.10 and Tobacco dependency F17.200 [facility] [address] [place] [address] 62591- 2219 Oct, [facility] [id number] [place] [address] 96451- 7073 Oct, Other dorsalgia M54.89 [facility] [id number] [place] [address] 01718- 6355 Oct, Anorexia R63.0 [facility] [address] [place] [address] 55996- 8089 September, PTSD (post-traumatic stress disorder) F43.10 [place] [address] 60413- 7819 September, Low TSH level R94.6 [place] [address] [place] [address] 946 September, Other dorsalgia M54.89 [place] [address] [place] [address] 4020 September, Annual physical exam Z00.00 and Migraine without aura and without status migrainosus, not intractable G43.009 [facility] [address]340[address]- 868 September, Abnormal TSH R94.6 and Dysfunction of left eustachian tube H69.82 [place] [address] 31199 8269 Aug, [place] [address] 18738- 0214 Aug, Anorexia R63.0 [facility] [address] [id number] Aug, Dental examination Z01.20 and Xerostomia K11.7 [place] [address] 03859- 6573 Aug, Neuropathy G62.9 [place] [address] 839732- 5168 Aug, [place] [address] 98222- 5325 Aug, Other dorsalgia M54.89 [place] [address] 173406- 7155 Aug, Type 2 diabetes mellitus with diabetic autonomic (poly) neuropathy E11.43 ; Diabetic polyneuropathy associated with type 2 diabetes mellitus E11.42 ; Bronchitis J40 ; Gastroparesis K31.84 and Reactive depression F32.9 [place] [address] [place] [address] 4446 Aug, PTSD (post-traumatic stress disorder) F43.10 [facility] [address] 28654 2546 Aug, Other dorsalgia M54.89 and Anorexia R63.0 [facility] [address] 34404 2546 Jul, [facility] [address] 12543 2546 Jul, Other dorsalgia M54.89 [facility] [address] 36554- 0996 Jul, [facility] [id number] [place] [address] 82892- 3646 Jul, [facility] [address] 63862- 2406 Jul, PTSD (post-traumatic stress disorder) F43.10 [facility] [id number] [place] [address] 37896- 9836 Jul, [facility] [address] 79347- 3226 Jul, [facility] [id number] [place] [address] 65998- 1526 Jul, [facility] [id number] [place] [address] 41352 2546 Jul, Anorexia R63.0 [facility] [id number] [place] [address] 31895- 3536 Jun, [facility] [id number] [place] [address] 95791- 6926 Jun, Vaginal discharge N89.8 ; Visit for gynecologic examination Z01.419 and Pelvic pressure in female R10.2 [facility] [id number] [place] [address] 41331- 8951 Jun, [facility] [id number] [place] [address] 69734- 1672 Jun, Other dorsalgia M54.89 [facility] [id number] [place] [address] 40730- 2166 Jun, [facility] [address] 08616- 4435 Jun, [facility] [address] 24166- 6953 Jun, [facility] [address] 15866- 1825 May, Back pain M54.9 [facility] [address] 73947- 8384 May, Anorexia R63.0 [facility] [address] 03176- 2127 May, Other dorsalgia M54.89 [facility] [id number] [place] [address] 07543- 0479 May, [facility] [id number] [place] [address] 39619- 0908 May, Bronchitis J40 [facility] [id number] [place] [address] 13168- 8188 May, Type 2 diabetes mellitus with diabetic autonomic (poly) neuropathy E11.43 ; 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 ; Back pain M54.9 and Neuropathy G62.9 [facility] [id number] [place] [address] 37069- 8455 May, Left breast mass N63.20 [facility] [id number] [place] [address] 51563- 5706 May, [facility] [id number] [place] [address] 61717- 5082 Apr, Other dorsalgia M54.89 [facility] [id number] [place] [address] 85778 2546 Apr, Anorexia R63.0 [facility] [address] 58783- 4646 Apr, Anorexia R63.0 [facility] [address] 70741- 3768 Apr, Mass of left breast N63.20 [facility] [address] 30898 2548 Apr, [facility] [address] 13934- 7028 Apr, [facility] [address] 82214- 5840 Apr, Diarrhea of presumed infectious origin A09 [facility] [address] 77818- 4418 Apr, Encounter for immunization Z23 [facility] [address] 20403- 1298 Apr, [facility] [id number] [place] [address] 18207- 1592 Mar, Other dorsalgia M54.89 [facility] [address] 41238 2546 Mar, [facility] [id number] [place] [address] 10873 2546 Mar, [facility] [address] 47458- 2696 Mar, Anorexia R63.0 [facility] [id number] [place] [address] 90764- 2546 Mar, [facility] [address] 94477- 8596 Mar, Other dorsalgia M54.89 [facility] [id number] [place] [address] 50778- 7716 Mar, [facility] [address] 00059- 7031 Mar, Encounter for immunization Z23 [facility] [address] 67018- 4639 Feb, Anorexia R63.0 [facility] [address] 79180- 8552 Feb, Diabetes E11.9 [facility] [address] 15612- 5829 Feb, Back pain M54.9 and Diabetes E11.9 [facility] [address] 13029- 5681 Feb, Diabetes E11.9 [facility] [address] 06676- 5790 Feb, Neuropathy G62.9 [facility] [address] 04742- 5112 Feb, Encounter for immunization Z23 ; Epigastric pain R10.13 ; Weight loss, abnormal R63.4 and Neuropathy G62.9 [facility] [id number] [place] [address] [id number] Feb, [facility] [id number] [place] [address] 51460- 0414 Feb, [facility] [id number] [place] [address] 69151- 0984 Feb, Intractable vomiting with nausea, unspecified vomiting type R11.2 [facility] [id number] [place] [address] 10851 -7568 Feb, Chronic nausea R11.0 [facility] [address] 23096- 3664 Feb, Other dorsalgia M54.89 [facility] [id number] [place] [address] 24548 2546 Jan, [facility] [id number] [place] [address] 29243 2546 Jan, [facility] [id number] [place] [address] 72487 2546 Jan, [facility] [id number] [place] [address] 96662- 2546 Jan, [facility] [id number] [place] [address] 62224 2546 Jan, Asthma exacerbation J45.901 ; Bronchitis J40 and Neuropathy G62.9 [facility] [id number] [place] [address] 13660 2546 Jan, Anorexia R63.0 [facility] [address] 62879 2544 Jan, Other dorsalgia M54.89 [facility] [id number] [place] [address] 49506- 0176 Dec, [facility] [id number] [place] [address] 43612- 9754 Dec, [facility] [id number] [place] [address] 76095- 6868 Dec, Anorexia R63.0 [facility] [id number] [place] [address] 11113 2546 Dec, Primary insomnia F51.01 [facility] [id number] [place] [address] 92166 2546 Dec, Other dorsalgia M54.89 [facility] [id number] [place] [address] 28952 2546 Dec, [facility] [id number] [place] [address] 31827- 3858 Nov, [facility] [id number] [place] [address] 50072- 4886 Nov, [facility] [id number] [place] [address] 10065- 9617 Nov, [facility] [id number] [place] [address] 75102- 4865 Nov, History of colon polyps Z86.010 [facility] [id number] [place] [address] 20064- 7967 Nov, Weight loss R63.4 ; Nausea and vomiting, intractability of vomiting not specified, unspecified vomiting type R11.2 and Abnormal LFTs R79.89 [facility] [id number] [place] [address] 62222- 2798 Nov, [facility] [address] 84866- 1069 Nov, Neuropathy G62.9 and Pain in right knee M25.561 [facility] [id number] [place] [address] 69020- 8078 Nov, Back pain M54.9 [facility] [id number] [place] [address] 37637- 9188 Nov, [facility] [id number] [place] [address] 28135- 0784 Nov, Bronchitis J40 [facility] [id number] [place] [address] 22160- 5675 Nov, Weight loss R63.4 [facility] [id number] [place] [address] 37238- 4131 Oct, Back pain M54.9 [facility] [id number] [place] [address] 80566- 8605 Oct, [facility] [id number] [place] [address] 25996- 9761 14 Oct, 2016 Back pain M54.9 [facility] [id number] [place] [address] 09537- 4091 Oct, Type 2 diabetes mellitus without complications E11.9 and Bronchitis J40 [facility] [id number] [place] [address] 51920- 6826 Oct, [facility] [id number] [place] [address] 75034- 6424 Oct, [facility] [id number] [place] [address] 63587- 4342 September, Gastroparesis K31.84 ; Type 2 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 and Neuropathy G62.9 [place] [id number] [place] [address] 15914- 1877 September, Other dorsalgia M54.89 [place] [id number] [place] [address] 06529- 1228 September, [facility] [id number] [place] [address] 81736- 6261 September, [place] [id number] [place] [address] 30469- 2472 Aug, Gastroparesis K31.84 and Radicular leg pain M54.10 [place] [id number] [place] [address] 72951- 8173 Aug, Anorexia R63.0 [facility] [id number] [place] [address] 21602- 4383 Aug, Bronchitis J40 [facility] [id number] [place] [address] 30496- 2678 Aug, Back pain M54.9 [facility] [address] [place] [address] 92940- 4893 Aug, Routine gynecological examination Z01.419 ; Routine screening for STI (sexually transmitted infection) Z11.3 and Yeast infection of the vagina B37.3 [facility] [id number] [place] [address] 24547- 3864 Jul, Other dorsalgia M54.89 [facility] [address] 69480- 1635 Jul, Diabetes E11.9 and Gastroparesis K31.84 [facility] [address] 11799- 0576 Jun, [facility] [address] 69343- 9181 Jun, Back pain M54.9 [facility] [address] 17517- 7467 14 Jun, 2016 Neuropathy G62.9 [facility] [address] [id number] Jun, Encounter for dental examination Z01.20 [facility] [address] 11184- 1100 Jun, Gastroparesis 536.3 and Anorexia R63.0 [facility] [address] 05271- 4289 May, Other dorsalgia M54.89 [facility] [id number] [place] [address] 20514- 6941 May, Periumbilical abdominal pain R10.33 ; Weight loss R63.4 and Gastroparesis K31.84 [facility] [id number] [place] [address] 12604- 4599 May, Back pain M54.9 [facility] [address] 40125- 4841 Apr, Anorexia R63.0 [facility] [id number] [place] [address] 14428- 8499 Apr, Anorexia R63.0 [facility] [id number] [place] [address] 73582- 1953 16 Apr, 2016 Back pain M54.9 [facility] [address] 73322- 6445 Apr, Back pain M54.9 [facility] [id number] [place] [address] 10658- 6655 Apr, [facility] [address] 98982- 9251 Apr, Bronchitis J40 and Neuropathy G62.9 [facility] [id number] [place] [address] 52194- 1729 Apr, Neuropathy G62.9 [facility] [address] 85072- 0859 Apr, [facility] [address] 87761- 2264 Apr, Back pain M54.9 [facility] [id number] [place] [address] 38091- 8724 Mar, Type 2 diabetes mellitus with diabetic autonomic (poly) neuropathy E11.43 [facility] [id number] [place] [address] 35711- 2020 Mar, Type 2 diabetes mellitus without complications E11.9 [facility] [id number] [place] [address] 72511- 5761 Mar, Neuropathy G62.9 [facility] [id number] [place] [address] 07691- 1399 Mar, [facility] [id number] [place] [address] 61277- 3252 Mar, Breast cancer screening Z12.39 [facility] [id number] [place] [address] 64845- 2112 Mar, Other dorsalgia M54.89 [facility] [id number] [place] [address] 94925- 6932 Feb, [facility] [id number] [place] [address] 31792- 2050 30 Jan, 2016 Neuropathy G62.9 ; Type 2 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 ; Uncomplicated asthma, unspecified asthma severity J45.909 and Encounter for immunization Z23 [facility] [id number] [place] [address] 43972- 9395 Jan, [facility] [id number] [place] [address] 98252- 3889 Jan, [facility] [id number] [place] [address] 30227- 1258 Dec, [facility] [id number] [place] [address] 53161- 0760 Dec, [facility] [id number] [place] [address] 46909- 2116 Nov, [facility] [id number] [place] [address] 18167- 8574 Nov, Back pain M54.9 [place] [id number] [place] [address] 92490- 6538 Nov, Neuropathy G62.9 ; Mixed hyperlipidemia E78.2 ; Type 2 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 and FCI 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 Z79.4 [place] [id number] [place] [address] 07837- 2576 Oct, [facility] [id number] [place] [address] 34672- 7023 Oct, Other dorsalgia M54.89 [facility] [id number] [place] [address] 49145- 3238 September, Primary insomnia F51.01 [facility] [id number] [place] [address] 80308- 1928 September, [place] [id number] [place] [address] 08894- 1533 Aug, Other dorsalgia M54.89 [facility] [address] 83314- 6010 Jul, [facility] [id number] [place] [address] 76951- 5653 Jul, Other dorsalgia M54.89 [facility] [address] 06734- 3338 Jul, Diabetes E11.9 ; Back pain M54.9 ; Neuropathy G62.9 and Gastroparesis K31.84 [facility] [address] 43786- 9286 Jun, [facility] [address] 29340- 1945 Jun, Other dorsalgia M54.89 [facility] [address] 68474- 2995 May, [facility] [address] 87665- 6892 May, Radicular leg pain M54.10 and Other dorsalgia M54.89 [facility] [id number] [place] [address] 71740- 3236 Apr, [facility] [id number] [place] [address] 50652- 1284 Mar, [facility] [id number] [place] [address] 22297- 7880 Mar, [facility] [address] 90844- 9254 Mar, Radicular leg pain M54.10 [facility] [id number] [place] [address] 24722- 6520 Feb, [facility] [address] 52679- 1792 Feb, [facility] [id number] [place] [address] 84247- 5099 Feb, [facility] [id number] [place] [address] 051083- 7025 Jan, [facility] [id number] [place] [address] 112881- 3971 Jan, IBS (irritable bowel syndrome) 564.1 [facility] [id number] [place] [address] 23779- 6140 Jan, [facility] [id number] [place] [address] 46192- 0804 Jan, [facility] [id number] [place] [address] 77883- 4482 Jan, Diabetes mellitus without mention of complication, type II or unspecified type, not stated as uncontrolled 250.00 ; Gastroparesis 536.3 and Hypoacusis 389.9 [facility] [id number] [address]- 9140 Jan, [facility] [id number] [place] [id number]- [address]698 Jan, [facility] [id number] [place] [address] [id number]- [phone] Dec, [facility] [id number] [place] [address] [id number]- [phone] Dec, [facility] [address] [address] Dec, [facility] [id number] [place] [address] [id number]- [id number] Dec, Back pain 724.5 and Gastroparesis 536.3 [facility] [id number], [place] [address] Nov, [id number] [id number] Nov, Dental examination V72.2 [facility] [address] [address] Nov, [facility] [id number] [address] Nov, [facility] [id number] [place] [address] 50552- 1471 Nov, Depressive disorder, not elsewhere classified 311 and No condition on [place] II V71.09 [facility] [id number] [place] [address] 65561- 3688 Nov, Diabetes 250.00 and Symptomatic menopausal or female climacteric states 627.2 [facility] [address], [place] [address] Oct, [facility] [id number] [place] [address] 34586- 0031 Oct, Lumbar strain 847.2 [facility] [address] [address] Oct, Gastroparesis 536.3 and Unspecified myalgia and myositis 729.1 [facility] [address] [address] 14 Aug, 2014 [facility] [address] [address] Aug, [facility] [address] [address] Jul, [facility] [address] [address] Jul, [facility] [address] [address] Jul, [facility] [address] [address] Jul, [facility] [place] [facility] [address] [id number] [place] [address] Jul, [facility] [place] [facility] [address] [id number] [place] [address] Jun, [facility] [place] [facility] [address] [id number] [place] [address] Jun, [facility] [place] [facility] [address] [id number] [place] [address] Jun, [facility] [place] [facility] [address] [id number] [place] [address] May, [facility] [place] [facility] [address] [id number] [place] [address] May, [facility] [place] [facility] [address] [id number] [place] [address] Mar, [facility] [place] [facility] [address] [id number] [place] [address] Mar, [facility] [place] [facility] [address] [id number] [place] [address] Mar, [facility] [place] [facility] [address] [id number] [place] [address] Mar, [facility] [place] [facility] [address] [id number] [place] [address] Mar, [facility] [place] [facility] [address] [id number] [place] [address] Mar, [facility] [place] [facility] [address] [id number] [place] [address] Feb, [facility] [place] [facility] [address] [id number] [place] [address] Feb, [facility] [place] [facility] [address] [id number] [place] [address] Nov, [facility] [place] [facility] [address] [id number] [place] [address] 11 Nov, 2012 [facility] [address] [id number] [place] [address] Nov, [facility] [address] [id number] [place] [address] Oct, [facility] [address] [id number] [place] [address] September, [facility] [address] [id number] [place] [address] Aug, [facility] [address] [id number] [place] [address] Aug, [facility] [address] [id number] [place] [address] Aug, [facility] [address] [id number] [place] [address] Aug, [facility] [address] [id number] [place] [address] Aug, [facility] [address] [id number] [place] [address] Aug, [facility] [address] [id number] [place] [address] Aug, [facility] [address] [id number] [place] [address] Aug, [facility] [address] [id number] [place] [address] Jul, [facility] [address] [id number] [place] [address] Jul, [facility] [address] [id number] [place] [address] Jun, [facility] [address] [id number] [place] [address] Jun, [facility] [id number] [address] Jun, [facility] [address], [place] [address] Jun, [facility] [address], [place] [address] Jun, [facility] [address], [place] [address] Jun, [facility] [address], [place] [address] Jun, [facility] [address], [place] [address] May, [facility] [address], [place] [address] May, [facility] [address] [address] May, [facility] [address] [address] May, [facility] [address] [address] Mar, [facility] [address], [place] [address] Mar, [facility] [id number], [place] [address] Jan, IMMUNIZATIONS No Known Immunizations SOCIAL HISTORY Never Assessed REASON FOR VISIT PLAN OF CARE VITAL SIGNS MEDICATIONS Unknown [...] vomitting-[facility] 03/05/17 Hospitalization History hospital stay at [facility] for stomach issues 2016
--- OUTSIDE RECORDS SUMMARY | 2018-01-27 20:03 | XMS REPORT ---
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 Role Phone HORACE HIGGINS Unavailable PROBLEMS Type Condition ICD9-CM Code RWN55-PH Code Onset Dates Condition Status SNOMED Code Problem History of colon polyps Z86.010 Active 790459828 Problem Asthma exacerbation J45.901 Active 615606954 Problem Primary insomnia F51.01 Active 9463118 Problem Tobacco dependency F17.200 Active 41016116 Problem Low TSH level R94.6 Active 186759585 Problem Annual physical exam Z00.00 Active 455105812 Problem Diabetic polyneuropathy associated with type 2 diabetes mellitus E11.42 Active 84164563 Problem Reactive depression F32.9 Active 62813152 Problem Migraine without aura and without status migrainosus, not intractable G43.009 Active 480189244 Problem PTSD (post-traumatic stress disorder) F43.10 Active 54566470 Problem Diabetes E11.9 Active 77717766 Problem Gastroparesis K31.84 Active 518054417 Problem Back pain M54.9 Active 856856555 Problem Neuropathy G62.9 Active 154050001 Problem Type 2 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 Active 80263031 Problem Uncomplicated asthma, unspecified asthma severity J45.909 Active 122115359 Problem MCC 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 Z79.4 Active 668226708 Problem Anorexia R63.0 Active 29122557 Problem Mixed hyperlipidemia E78.2 Active 853311967 Problem Weight loss R63.4 Active 250236220 ALLERGIES No Information ENCOUNTERS Encounter Location Date Diagnosis [facility] [id number] [address] Jan, [facility] [id number] [address] Dec, [facility] [id number] [id number] Nov, [facility] [id number] [place] [address] 62261- 8221 Nov, [facility] [id number] [place] [address] 78663- 9599 Nov, Other dorsalgia M54.89 [facility] [id number] [place] [address] 39233- 1735 Nov, LLQ pain R10.32 ; Low TSH level R94.6 and Gastroparesis K31.84 [facility] [id number] [place] [address] 66888- 6991 Nov, Anorexia R63.0 [facility] [id number] [place] [address] 57471- 4814 Nov, Asthma exacerbation J45.901 [facility] [id number] [place] [address] 01105- 8377 Oct, PTSD (post-traumatic stress disorder) F43.10 [facility] [id number] [place] [address] 24339- 8163 Oct, [facility] [id number] [place] [address] 19163- 7793 Oct, PTSD (post-traumatic stress disorder) F43.10 and Tobacco dependency F17.200 [facility] [id number] [place] [address] 46421- 4854 Oct, [facility] [id number] [place] [address] 25302- 2412 Oct, Other dorsalgia M54.89 [facility] [id number] [place] [address] 27391- 8916 Oct, Anorexia R63.0 [facility] [id number] [place] [address] 56902- 1898 September, PTSD (post-traumatic stress disorder) F43.10 [address] [facility] [address] 02249- 9597 September, Low TSH level R94.6 [address] [place] [address] [place] [address] 897 September, Other dorsalgia M54.89 [address] [place] [address] 49[address] September, Annual physical exam Z00.00 and Migraine without aura and without status migrainosus, not intractable G43.009 [facility] [address] [address]205- 132 September, Abnormal TSH R94.6 and Dysfunction of left eustachian tube H69.82 [facility] [address] [address]34 1014 Aug, [facility] [address] 80165- 8333 Aug, Anorexia R63.0 [facility] [address] [id number] Aug, Dental examination Z01.20 and Xerostomia K11.7 [facility] [facility] [address] 34445- 0827 Aug, Neuropathy G62.9 [facility] [address] 578781- 8983 Aug, [facility] [address] 96480- 2635 Aug, Other dorsalgia M54.89 [facility] [address] 316207- 9305 Aug, Type 2 diabetes mellitus with diabetic autonomic (poly) neuropathy E11.43 ; Diabetic polyneuropathy associated with type 2 diabetes mellitus E11.42 ; Bronchitis J40 ; Gastroparesis K31.84 and Reactive depression F32.9 [address] [place] [address] Aug, PTSD (post-traumatic stress disorder) F43.10 [facility] [address] [address] 2546 Aug, Other dorsalgia M54.89 and Anorexia R63.0 [facility] [address] 32168 2546 Jul, [facility] [address] 83311 2546 Jul, Other dorsalgia M54.89 [facility] [address] 68817- 7696 Jul, [facility] [id number] [place] [address] 20289- 3716 Jul, [facility] [address] 17290- 8810 Jul, PTSD (post-traumatic stress disorder) F43.10 [facility] [id number] [place] [address] 78670- 5256 Jul, [facility] [address] 48822- 0766 Jul, [facility] [id number] [place] [address] 16968- 2416 Jul, [facility] [id number] [place] [address] 86312 2546 Jul, Anorexia R63.0 [facility] [id number] [place] [address] 58429- 6956 Jun, [facility] [id number] [place] [address] 22530- 6316 Jun, Vaginal discharge N89.8 ; Visit for gynecologic examination Z01.419 and Pelvic pressure in female R10.2 [facility] [id number] [place] [address] 08689- 5817 Jun, [facility] [id number] [place] [address] 43000- 2673 Jun, Other dorsalgia M54.89 [facility] [id number] [place] [address] 82696- 3176 Jun, [facility] [address] 73450- 0219 Jun, [facility] [address] 64734- 9682 Jun, [facility] [address] 15064- 1065 May, Back pain M54.9 [facility] [address] 91875- 6001 May, Anorexia R63.0 [facility] [address] 30778- 0995 May, Other dorsalgia M54.89 [facility] [id number] [place] [address] 52064- 9761 May, [facility] [id number] [place] [address] 17015- 8679 May, Bronchitis J40 [facility] [id number] [place] [address] 53407- 2066 May, Type 2 diabetes mellitus with diabetic autonomic (poly) neuropathy E11.43 ; 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 ; Back pain M54.9 and Neuropathy G62.9 [facility] [id number] [place] [address] 50403- 8403 May, Left breast mass N63.20 [facility] [id number] [place] [address] 47634- 2524 May, [facility] [id number] [place] [address] 05226- 4665 Apr, Other dorsalgia M54.89 [facility] [id number] [place] [address] 86831 2546 Apr, Anorexia R63.0 [facility] [address] 34529- 3376 Apr, Anorexia R63.0 [facility] [address] 94318- 6586 Apr, Mass of left breast N63.20 [facility] [address] 36972 2547 Apr, [facility] [address] 96317- 0114 Apr, [facility] [address] 89098- 6877 Apr, Diarrhea of presumed infectious origin A09 [facility] [address] 25424- 0962 Apr, Encounter for immunization Z23 [facility] [address] 48071- 4133 Apr, [facility] [id number] [place] [address] 71636- 1299 Mar, Other dorsalgia M54.89 [facility] [address] 00110 2546 Mar, [facility] [id number] [place] [address] 39813 2546 Mar, [facility] [address] 23079- 9876 Mar, Anorexia R63.0 [facility] [id number] [place] [address] 80790- 2546 Mar, [facility] [address] 31468- 0031 Mar, Other dorsalgia M54.89 [facility] [id number] [place] [address] 66115- 1162 Mar, [facility] [address] 95316- 5686 Mar, Encounter for immunization Z23 [facility] [address] 84205- 4672 Feb, Anorexia R63.0 [facility] [address] 72261- 7012 Feb, Diabetes E11.9 [facility] [address] 50257- 8868 Feb, Back pain M54.9 and Diabetes E11.9 [facility] [address] 16939- 5837 Feb, Diabetes E11.9 [facility] [address] 46788- 2983 Feb, Neuropathy G62.9 [facility] [address] 02699- 1654 Feb, Encounter for immunization Z23 ; Epigastric pain R10.13 ; Weight loss, abnormal R63.4 and Neuropathy G62.9 [facility] [id number] [place] [address] [id number] Feb, [facility] [id number] [place] [address] 07904- 4629 Feb, [facility] [id number] [place] [address] 97234- 3790 Feb, Intractable vomiting with nausea, unspecified vomiting type R11.2 [facility] [id number] [place] [address] 56603 -1270 Feb, Chronic nausea R11.0 [facility] [address] 87158- 4008 Feb, Other dorsalgia M54.89 [facility] [id number] [place] [address] 56420 2546 Jan, [facility] [id number] [place] [address] 39796 2546 Jan, [facility] [id number] [place] [address] 33842 2546 Jan, [facility] [id number] [place] [address] 66439- 2546 Jan, [facility] [id number] [place] [address] 53499 2546 Jan, Asthma exacerbation J45.901 ; Bronchitis J40 and Neuropathy G62.9 [facility] [id number] [place] [address] 52644 2546 Jan, Anorexia R63.0 [facility] [address] 42585 2548 Jan, Other dorsalgia M54.89 [facility] [id number] [place] [address] 61094- 3866 Dec, [facility] [id number] [place] [address] 69051- 0461 Dec, [facility] [id number] [place] [address] 95248- 7796 Dec, Anorexia R63.0 [facility] [id number] [place] [address] 68929 2546 Dec, Primary insomnia F51.01 [facility] [id number] [place] [address] 38762 2546 Dec, Other dorsalgia M54.89 [facility] [id number] [place] [address] 51469 2546 Dec, [facility] [id number] [place] [address] 37657- 9558 Nov, [facility] [id number] [place] [address] 00510- 3961 Nov, [facility] [id number] [place] [address] 72150- 2201 Nov, [facility] [id number] [place] [address] 76530- 1045 Nov, History of colon polyps Z86.010 [facility] [id number] [place] [address] 09790- 0727 Nov, Weight loss R63.4 ; Nausea and vomiting, intractability of vomiting not specified, unspecified vomiting type R11.2 and Abnormal LFTs R79.89 [facility] [id number] [place] [address] 70877- 3800 Nov, [facility] [address] 69674- 7505 Nov, Neuropathy G62.9 and Pain in right knee M25.561 [facility] [id number] [place] [address] 67666- 8076 Nov, Back pain M54.9 [facility] [id number] [place] [address] 03937- 9728 Nov, [facility] [id number] [place] [address] 88783- 0057 Nov, Bronchitis J40 [facility] [id number] [place] [address] 79647- 7675 Nov, Weight loss R63.4 [facility] [id number] [place] [address] 39801- 2554 Oct, Back pain M54.9 [facility] [id number] [place] [address] 68341- 1849 Oct, [facility] [id number] [place] [address] 27624- 0970 14 Oct, 2016 Back pain M54.9 [facility] [id number] [place] [address] 41411- 2888 Oct, Type 2 diabetes mellitus without complications E11.9 and Bronchitis J40 [facility] [id number] [place] [address] 89450- 7792 Oct, [facility] [id number] [place] [address] 06740- 9588 Oct, [facility] [id number] [place] [address] 91110- 3581 September, Gastroparesis K31.84 ; Type 2 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 and Neuropathy G62.9 [address] [id number] [place] [address] 61487- 0235 September, Other dorsalgia M54.89 [address] [id number] [place] [address] 24435- 4430 September, [facility] [id number] [place] [address] 83585- 5926 September, [address] [id number] [place] [address] 48298- 3972 Aug, Gastroparesis K31.84 and Radicular leg pain M54.10 [address] [id number] [place] [address] 30055- 4396 Aug, Anorexia R63.0 [facility] [id number] [place] [address] 19959- 8845 Aug, Bronchitis J40 [facility] [id number] [place] [address] 71116- 8567 Aug, Back pain M54.9 [facility] [id number] [place] [address] 55201- 5530 Aug, Routine gynecological examination Z01.419 ; Routine screening for STI (sexually transmitted infection) Z11.3 and Yeast infection of the vagina B37.3 [facility] [id number] [place] [address] 76433- 9481 Jul, Other dorsalgia M54.89 [facility] [address] 13272- 0494 Jul, Diabetes E11.9 and Gastroparesis K31.84 [facility] [address] 01495- 0856 Jun, [facility] [address] 78332- 2131 Jun, Back pain M54.9 [facility] [address] 30491- 3272 14 Jun, 2016 Neuropathy G62.9 [facility] [address] [id number] Jun, Encounter for dental examination Z01.20 [facility] [address] 10871- 6651 Jun, Gastroparesis 536.3 and Anorexia R63.0 [facility] [address] 72009- 9720 May, Other dorsalgia M54.89 [facility] [id number] [place] [address] 75572- 0697 May, Periumbilical abdominal pain R10.33 ; Weight loss R63.4 and Gastroparesis K31.84 [facility] [id number] [place] [address] 40581- 8426 May, Back pain M54.9 [facility] [address] 21883- 4307 Apr, Anorexia R63.0 [facility] [id number] [place] [address] 54737- 3660 Apr, Anorexia R63.0 [facility] [id number] [place] [address] 91964- 1761 16 Apr, 2016 Back pain M54.9 [facility] [address] 17849- 5338 Apr, Back pain M54.9 [facility] [id number] [place] [address] 96026- 4551 Apr, [facility] [address] 83942- 0122 Apr, Bronchitis J40 and Neuropathy G62.9 [facility] [id number] [place] [address] 01245- 5472 Apr, Neuropathy G62.9 [facility] [address] 31479- 3535 Apr, [facility] [address] 63872- 4215 Apr, Back pain M54.9 [facility] [id number] [place] [address] 95305- 8663 Mar, Type 2 diabetes mellitus with diabetic autonomic (poly) neuropathy E11.43 [facility] [id number] [place] [address] 24244- 6494 Mar, Type 2 diabetes mellitus without complications E11.9 [facility] [id number] [place] [address] 95373- 8532 Mar, Neuropathy G62.9 [facility] [id number] [place] [address] 24104- 3614 Mar, [facility] [id number] [place] [address] 78823- 2057 Mar, Breast cancer screening Z12.39 [facility] [id number] [place] [address] 38454- 0692 Mar, Other dorsalgia M54.89 [facility] [id number] [place] [address] 25396- 3739 Feb, [facility] [id number] [place] [address] 88062- 0361 30 Jan, 2016 Neuropathy G62.9 ; Type 2 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 ; Uncomplicated asthma, unspecified asthma severity J45.909 and Encounter for immunization Z23 [facility] [id number] [place] [address] 13257- 9420 Jan, [facility] [id number] [place] [address] 65359- 2367 Jan, [facility] [id number] [place] [address] 26206- 3844 Dec, [facility] [id number] [place] [address] 17909- 5747 Dec, [facility] [id number] [place] [address] 32185- 8558 Nov, [facility] [id number] [place] [address] 05282- 6439 Nov, Back pain M54.9 [facility] [id number] [place] [address] 33673- 1104 Nov, Neuropathy G62.9 ; Mixed hyperlipidemia E78.2 ; Type 2 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 and [facility] 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 Z79.4 [facility] [id number] [place] [address] 66618- 1939 Oct, [facility] [id number] [place] [address] 41274- 8633 Oct, Other dorsalgia M54.89 [facility] [id number] [place] [address] 59545- 9745 September, Primary insomnia F51.01 [facility] [id number] [place] [address] 00787- 0643 September, [facility] [id number] [place] [address] 01221- 6365 Aug, Other dorsalgia M54.89 [facility] [address] 12985- 9810 Jul, [facility] [id number] [place] [address] 44231- 8502 Jul, Other dorsalgia M54.89 [facility] [address] 52474- 3852 Jul, Diabetes E11.9 ; Back pain M54.9 ; Neuropathy G62.9 and Gastroparesis K31.84 [facility] [address] 40156- 7161 Jun, [facility] [address] 82237- 9616 Jun, Other dorsalgia M54.89 [facility] [address] 04854- 7129 May, [facility] [address] 16121- 5317 May, Radicular leg pain M54.10 and Other dorsalgia M54.89 [facility] [id number] [place] [address] 98818- 3082 Apr, [facility] [id number] [place] [address] 19699- 6455 Mar, [facility] [id number] [place] [address] 34033- 4147 Mar, [facility] [address] [phone] Mar, Radicular leg pain M54.10 [facility] [id number] [place] [address] [phone] Feb, [facility] [address] [phone]- [phone] Feb, [facility] [id number] [place] [address] [phone] Feb, [facility] [id number] [place] [address] [id number] Jan, [facility] [id number] [place] [address] [phone] Jan, IBS (irritable bowel syndrome) 564.1 [facility] [id number] [place] [address] [phone] Jan, [facility] [id number] [place] [address] [phone] Jan, [facility] [id number] [place] [address] [phone]- [phone] Jan, Diabetes mellitus without mention of complication, type II or unspecified type, not stated as uncontrolled 250.00 ; Gastroparesis 536.3 and Hypoacusis 389.9 [facility] [id number] [address] Jan, [facility] [id number] [place] [address] [phone]- [phone] Jan, [facility] [id number] [place] [address] [phone]- [phone] Dec, [facility] [id number] [place] [id number] Dec, [facility] [id number] [address] Dec, [facility] [id number] [place] [address]- [address]76 Dec, Back pain 724.5 and Gastroparesis 536.3 [facility] [id number] [address] Nov, [place] [id number] [id number] Nov, Dental examination V72.2 [facility] [id number] [address] Nov, [facility] [id number] [address] Nov, [facility] [id number] [place] [address]- [address] Nov, Depressive disorder, not elsewhere classified 311 and No condition on [place] V71.09 [facility] [id number] [place] [address]- 2985 Nov, Diabetes 250.00 and Symptomatic menopausal or female climacteric states 627.2 [facility] [id number] [address] Oct, [facility] [id number] [place] [address]- [address] Oct, Lumbar strain 847.2 [facility] [id number] [address] Oct, Gastroparesis 536.3 and Unspecified myalgia and myositis 729.1 [facility] [id number] [address] 14 Aug, 2014 [facility] [id number] [address] Aug, [facility] [id number] [address] Jul, [facility] [id number] [address] Jul, [facility] [id number] [address] Jul, [facility] [id number] [address] Jul, [facility] [place] [facility] [address] [id number] [place] [address] Jul, [facility] [place] [facility] [address] [id number] [place] [address] 9479 Jun, [facility] [place] [facility] [address] [id number] [place] [address] Jun, [facility] [place] [facility] [address] [id number] [place] [address]- [address]34 Jun, [facility] [place] [facility] [address] [id number] [place] [address] 45[address] May, [facility] [place] [facility] [address] [id number] [place] [address]- 1599 May, [facility] [place] [facility] [address] [id number] [place] [address]- 5771 Mar, [facility] [place] [facility] [address] [id number] [place] [address]- 4057 Mar, [facility] [place] [facility] [address] [id number] [place] [address] 2052 Mar, [facility] [place] [facility] [address] [id number] [place] [address]- 9545 Mar, [facility] [place] [facility] [address] [id number] [place] [address]- 2398 Mar, [facility] [place] [facility] [address] [id number] [place] [address]- 0937 Mar, [facility] [place] [facility] [address] [id number] [place] [address]- 2531 Feb, [facility] [place] [facility] [address] [id number] [place] [address]- 7860 Feb, [facility] [place] [facility] [address] [id number] [place] [address] 3204 Nov, [facility] [place] [facility] [address] [id number] [place] [address]- 6968 11 Nov, 2012 [facility] [address] [id number] [place] [address]- 1588 Nov, [facility] [address] [id number] [place] [address]- 0972 Oct, [facility] [address] [id number] [place] [address]- [address] September, [facility] [address] [id number] [place] [address]- 7067 Aug, [facility] [address] [id number] [place] [address]- 4070 Aug, [facility] [address] [id number] [place] [address]- 1855 Aug, [facility] [address] [id number] [place] [address]- 9594 Aug, [facility] [address] [id number] [place] [address]- 6322 Aug, [facility] [address] [id number] [place] [address]- 2401 Aug, [facility] [address] [id number] [place] [address]- 5106 Aug, [facility] [address] [id number] [place] [address]- 5610 Aug, [facility] [address] [id number] [place] [address]- 6663 Jul, [facility] [address] [id number] [place] [address]- 1033 Jul, [facility] [address] [id number] [place] [address]- 4501 Jun, [facility] [address] [id number] [place] [address]- 2575 Jun, [facility] [id number], [place] [address] Jun, [facility] [id number] [address] Jun, [facility] [id number] [address]- [address] Jun, [facility] [id number] [address]- 0[address] Jun, [facility] [id number] [address]- 225[address] Jun, [facility] [id number] [place] [address]- 1990 May, [facility] [id number] [address]- [address] May, [facility] [id number] [address]- 8527 May, [facility] [id number] [address]- 0[address] May, [facility] [id number] [place] [address]- [address] Mar, [facility] [id number] [place] [address]- [address] Mar, [facility] [id number] [place] [address] Jan, IMMUNIZATIONS No Known Immunizations SOCIAL HISTORY Never Assessed REASON FOR VISIT BS f/u attempt PLAN OF CARE VITAL SIGNS MEDICATIONS Unknown [...] vomitting-[facility] 03/05/17 [facility]ization [facility]
--- OUTSIDE RECORDS SUMMARY | 2018-01-27 20:03 | XMS REPORT ---
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 Name Role Phone HORACE HIGGINS Unavailable PROBLEMS Type Condition ICD9-CM Code MOW12-OZ Code Onset Dates Condition Status SNOMED Code Problem History of colon polyps Z86.010 Active 465614158 Problem Asthma exacerbation J45.901 Active 448849720 Problem Primary insomnia F51.01 Active 2110270 Problem Tobacco dependency F17.200 Active 87218186 Problem Low TSH level R94.6 Active 954100865 Problem Annual physical exam Z00.00 Active 983769542 Problem Diabetic polyneuropathy associated with type 2 diabetes mellitus E11.42 Active 75227060 Problem Reactive depression F32.9 Active 70834134 Problem Migraine without aura and without status migrainosus, not intractable G43.009 Active 652890292 Problem PTSD (post-traumatic stress disorder) F43.10 Active 01105197 Problem Diabetes E11.9 Active 76524207 Problem Gastroparesis K31.84 Active 960958667 Problem Back pain M54.9 Active 630004832 Problem Neuropathy G62.9 Active 572239794 Problem Type 2 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 Active 89715398 Problem Uncomplicated asthma, unspecified asthma severity J45.909 Active 784589343 Problem FDC 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 Z79.4 Active 435145750 Problem Anorexia R63.0 Active 67040944 Problem Mixed hyperlipidemia E78.2 Active 517067045 Problem Weight loss R63.4 Active 220609890 ALLERGIES No Information ENCOUNTERS Encounter Location Date Diagnosis [facility] [id number], [place] [address] Jan, [facility] [id number] [address] Dec, [facility] [address] [id number] Nov, [facility] [id number] [place] [address] 21839- 0168 Nov, Other dorsalgia M54.89 [facility] [id number] [place] [address] 14635- 1856 Nov, [facility] [id number] [place] [address] 93477- 9180 Nov, LLQ pain R10.32 ; Low TSH level R94.6 and Gastroparesis K31.84 [facility] [id number] [place] [address] 18453- 4314 Nov, Anorexia R63.0 [facility] [id number] [place] [address] 88003- 1111 Nov, Asthma exacerbation J45.901 [facility] [id number] [place] [address] 96800- 7113 Oct, PTSD (post-traumatic stress disorder) F43.10 [facility] [id number] [place] [address] 78264- 3713 Oct, [facility] [id number] [place] [address] 80415- 5876 Oct, PTSD (post-traumatic stress disorder) F43.10 and Tobacco dependency F17.200 [facility] [id number] [place] [address] 83928- 1143 Oct, [facility] [id number] [place] [address] 76742- 9415 Oct, Other dorsalgia M54.89 [facility] [id number] [place] [address] 97695- 1708 Oct, Anorexia R63.0 [facility] [id number] [place] [address] 21089- 0063 September, PTSD (post-traumatic stress disorder) F43.10 [facility] [facility] [address] [address] September, Low TSH level R94.6 [place] [place] [address] [place] [address] 056 September, Other dorsalgia M54.89 [address] [place] [address] [place] [address] September, Annual physical exam Z00.00 and Migraine without aura and without status migrainosus, not intractable G43.009 [facility] [address]- 900 September, Abnormal TSH R94.6 and Dysfunction of left eustachian tube H69.82 [facility] [facility] [address] [address] 1536 Aug, [facility] [facility] [address] 33763- 6897 Aug, Anorexia R63.0 [facility] [address] [id number] Aug, Dental examination Z01.20 and Xerostomia K11.7 [facility] [facility] [address] 29425- 4356 Aug, Neuropathy G62.9 [facility] [facility] [address] 416997- 9372 Aug, [facility] [facility] [address] 20249- 8800 Aug, Other dorsalgia M54.89 [facility] [address] 517469- 6534 Aug, Type 2 diabetes mellitus with diabetic autonomic (poly) neuropathy E11.43 ; Diabetic polyneuropathy associated with type 2 diabetes mellitus E11.42 ; Bronchitis J40 ; Gastroparesis K31.84 and Reactive depression F32.9 [place] [facility] [address] [place] [address] Aug, PTSD (post-traumatic stress disorder) F43.10 [facility] [address] 75956 2546 Aug, Other dorsalgia M54.89 and Anorexia R63.0 [facility] [address] 20161 2546 Jul, [facility] [address] 32051 2546 Jul, Other dorsalgia M54.89 [facility] [address] 40652- 2316 Jul, [facility] [id number] [place] [address] 51230- 7886 Jul, [facility] [address] 45254- 8787 Jul, PTSD (post-traumatic stress disorder) F43.10 [facility] [id number] [place] [address] 99539- 2066 Jul, [facility] [address] 46995- 0966 Jul, [facility] [id number] [place] [address] 28807- 4266 Jul, [facility] [id number] [place] [address] 24260 2546 Jul, Anorexia R63.0 [facility] [id number] [place] [address] 57885- 7086 Jun, [facility] [id number] [place] [address] 57768- 7066 Jun, Vaginal discharge N89.8 ; Visit for gynecologic examination Z01.419 and Pelvic pressure in female R10.2 [facility] [id number] [place] [address] 78584- 2299 Jun, [facility] [id number] [place] [address] 77635- 5068 Jun, Other dorsalgia M54.89 [facility] [id number] [place] [address] 65773- 8776 Jun, [facility] [address] 63973- 5167 Jun, [facility] [address] 64906- 6550 Jun, [facility] [address] 09565- 7440 May, Back pain M54.9 [facility] [address] 49782- 0894 May, Anorexia R63.0 [facility] [address] 00490- 5699 May, Other dorsalgia M54.89 [facility] [id number] [place] [address] 60741- 2678 May, [facility] [id number] [place] [address] 37775- 8003 May, Bronchitis J40 [facility] [id number] [place] [address] 16764- 6179 May, Type 2 diabetes mellitus with diabetic autonomic (poly) neuropathy E11.43 ; roasterman 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 Z79.4 ; Back pain M54.9 and Neuropathy G62.9 [facility] [id number] [place] [address] 34156- 4392 May, Left breast mass N63.20 [facility] [id number] [place] [address] 46324- 8413 May, [facility] [id number] [place] [address] 64238- 1156 Apr, Other dorsalgia M54.89 [facility] [id number] [place] [address] 16936 2546 Apr, Anorexia R63.0 [facility] [address] 52468- 6656 Apr, Anorexia R63.0 [facility] [address] 18577- 4180 Apr, Mass of left breast N63.20 [facility] [address] 34761 2544 Apr, [facility] [address] 00387- 6714 Apr, [facility] [address] 14318- 1418 Apr, Diarrhea of presumed infectious origin A09 [facility] [address] 72451- 5464 Apr, Encounter for immunization Z23 [facility] [address] 94841- 0265 Apr, [facility] [id number] [place] [address] 59826- 5439 Mar, Other dorsalgia M54.89 [facility] [address] 50428 2546 Mar, [facility] [id number] [place] [address] 03439 2546 Mar, [facility] [address] 28779- 9176 Mar, Anorexia R63.0 [facility] [id number] [place] [address] 28273- 2546 Mar, [facility] [address] 54873- 3827 Mar, Other dorsalgia M54.89 [facility] [id number] [place] [address] 57128- 8441 Mar, [facility] [address] 31303- 8118 Mar, Encounter for immunization Z23 [facility] [address] 98393- 5564 Feb, Anorexia R63.0 [facility] [address] 22189- 1002 Feb, Diabetes E11.9 [facility] [address] 32723- 4318 Feb, Back pain M54.9 and Diabetes E11.9 [facility] [address] 31703- 7884 Feb, Diabetes E11.9 [facility] [address] 03086- 4451 Feb, Neuropathy G62.9 [facility] [address] 71266- 5757 Feb, Encounter for immunization Z23 ; Epigastric pain R10.13 ; Weight loss, abnormal R63.4 and Neuropathy G62.9 [facility] [id number] [place] [address] [id number] Feb, [facility] [id number] [place] [address] 85412- 8327 Feb, [facility] [id number] [place] [address] 99632- 4591 Feb, Intractable vomiting with nausea, unspecified vomiting type R11.2 [facility] [id number] [place] [address] 74783 -0733 Feb, Chronic nausea R11.0 [facility] [address] 14208- 2774 Feb, Other dorsalgia M54.89 [facility] [id number] [place] [address] 63953 2546 Jan, [facility] [id number] [place] [address] 54716 2546 Jan, [facility] [id number] [place] [address] 75606 2546 Jan, [facility] [id number] [place] [address] 73551- 2546 Jan, [facility] [id number] [place] [address] 03411 2546 Jan, Asthma exacerbation J45.901 ; Bronchitis J40 and Neuropathy G62.9 [facility] [id number] [place] [address] 93476 2546 Jan, Anorexia R63.0 [facility] [address] 70093 2547 Jan, Other dorsalgia M54.89 [facility] [id number] [place] [address] 42121- 6896 Dec, [facility] [id number] [place] [address] 32790- 1332 Dec, [facility] [id number] [place] [address] 27748- 9946 Dec, Anorexia R63.0 [facility] [id number] [place] [address] 71723 2546 Dec, Primary insomnia F51.01 [facility] [id number] [place] [address] 85655 2546 Dec, Other dorsalgia M54.89 [facility] [id number] [place] [address] 35861 2546 Dec, [facility] [id number] [place] [address] 88860- 2129 Nov, [facility] [id number] [place] [address] 34380- 4973 Nov, [facility] [id number] [place] [address] 50186- 7291 Nov, [facility] [id number] [place] [address] 00102- 5836 Nov, History of colon polyps Z86.010 [facility] [id number] [place] [address] 93106- 8105 Nov, Weight loss R63.4 ; Nausea and vomiting, intractability of vomiting not specified, unspecified vomiting type R11.2 and Abnormal LFTs R79.89 [facility] [id number] [place] [address] 49286- 0995 Nov, [facility] [address] 57203- 2877 Nov, Neuropathy G62.9 and Pain in right knee M25.561 [facility] [id number] [place] [address] 81435- 6985 Nov, Back pain M54.9 [facility] [id number] [place] [address] 71248- 4838 Nov, [facility] [id number] [place] [address] 63685- 8436 Nov, Bronchitis J40 [facility] [id number] [place] [address] 38032- 5437 Nov, Weight loss R63.4 [facility] [id number] [place] [address] 91494- 7003 Oct, Back pain M54.9 [facility] [id number] [place] [address] 24677- 0416 Oct, [facility] [id number] [place] [address] 93573- 4020 14 Oct, 2016 Back pain M54.9 [facility] [id number] [place] [address] 80484- 9040 Oct, Type 2 diabetes mellitus without complications E11.9 and Bronchitis J40 [facility] [id number] [place] [address] 35810- 4546 Oct, [facility] [id number] [place] [address] 10003- 2414 Oct, [facility] [id number] [place] [address] 21890- 3525 September, Gastroparesis K31.84 ; Type 2 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 and Neuropathy G62.9 [facility] [id number] [place] [address] 23326- 7531 September, Other dorsalgia M54.89 [facility] [id number] [place] [address] 16275- 2442 September, [facility] [id number] [place] [address] 37427- 1253 September, [facility] [facility] [id number] [place] [address] 59138- 6808 Aug, Gastroparesis K31.84 and Radicular leg pain M54.10 [facility] [facility] [id number] [place] [address] 03635- 9909 Aug, Anorexia R63.0 [facility] [id number] [place] [address] 96155- 5748 Aug, Bronchitis J40 [facility] [id number] [place] [address] 59681- 7152 Aug, Back pain M54.9 [facility] [address] [place] [address] 56421- 8918 Aug, Routine gynecological examination Z01.419 ; Routine screening for STI (sexually transmitted infection) Z11.3 and Yeast infection of the vagina B37.3 [facility] [id number] [place] [address] 42649- 2210 Jul, Other dorsalgia M54.89 [facility] [address] 11522- 4040 Jul, Diabetes E11.9 and Gastroparesis K31.84 [facility] [address] 77692- 4339 Jun, [facility] [address] 15374- 7433 Jun, Back pain M54.9 [facility] [address] 96744- 3568 14 Jun, 2016 Neuropathy G62.9 [facility] [address] [id number] Jun, Encounter for dental examination Z01.20 [facility] [address] 56107- 1498 Jun, Gastroparesis 536.3 and Anorexia R63.0 [facility] [address] 16989- 9084 May, Other dorsalgia M54.89 [facility] [id number] [place] [address] 93049- 7325 May, Periumbilical abdominal pain R10.33 ; Weight loss R63.4 and Gastroparesis K31.84 [facility] [id number] [place] [address] 30098- 3286 May, Back pain M54.9 [facility] [address] 59433- 6768 Apr, Anorexia R63.0 [facility] [id number] [place] [address] 25164- 2514 Apr, Anorexia R63.0 [facility] [id number] [place] [address] 98425- 0132 16 Apr, 2016 Back pain M54.9 [facility] [address] 79992- 7921 Apr, Back pain M54.9 [facility] [id number] [place] [address] 55267- 0834 Apr, [facility] [address] 93543- 4265 Apr, Bronchitis J40 and Neuropathy G62.9 [facility] [id number] [place] [address] 98683- 6040 Apr, Neuropathy G62.9 [facility] [address] 82955- 3376 Apr, [facility] [address] 46739- 2730 Apr, Back pain M54.9 [facility] [id number] [place] [address] 61574- 6366 Mar, Type 2 diabetes mellitus with diabetic autonomic (poly) neuropathy E11.43 [facility] [id number] [place] [address] 54601- 4379 Mar, Type 2 diabetes mellitus without complications E11.9 [facility] [id number] [place] [address] 87557- 1319 Mar, Neuropathy G62.9 [facility] [id number] [place] [address] 87744- 0657 Mar, [facility] [id number] [place] [address] 83415- 5454 Mar, Breast cancer screening Z12.39 [facility] [id number] [place] [address] 54292- 0997 Mar, Other dorsalgia M54.89 [facility] [id number] [place] [address] 38487- 5688 Feb, [facility] [id number] [place] [address] 79769- 6274 30 Jan, 2016 Neuropathy G62.9 ; Type 2 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 ; Uncomplicated asthma, unspecified asthma severity J45.909 and Encounter for immunization Z23 [facility] [id number] [place] [address] 35722- 4212 Jan, [facility] [id number] [place] [address] 72893- 1920 Jan, [facility] [id number] [place] [address] 38550- 9012 Dec, [facility] [id number] [place] [address] 86365- 5560 Dec, [facility] [id number] [place] [address] 60566- 5913 Nov, [facility] [id number] [place] [address] 66413- 8592 Nov, Back pain M54.9 [facility] [id number] [place] [address] 72475- 9341 Nov, Neuropathy G62.9 ; Mixed hyperlipidemia E78.2 ; Type 2 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 and FDC 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 Z79.4 [facility] [id number] [place] [address] 43959- 0751 Oct, [facility] [id number] [place] [address] 44579- 0655 Oct, Other dorsalgia M54.89 [facility] [id number] [place] [address] 00841- 1282 September, Primary insomnia F51.01 [facility] [id number] [place] [address] 54526- 9727 September, [facility] [id number] [place] [address] 17928- 7611 Aug, Other dorsalgia M54.89 [facility] [address] 54294- 9238 Jul, [facility] [id number] [place] [address] 18140- 6811 Jul, Other dorsalgia M54.89 [facility] [address] 53795- 6722 Jul, Diabetes E11.9 ; Back pain M54.9 ; Neuropathy G62.9 and Gastroparesis K31.84 [facility] [address] 64245- 6202 Jun, [facility] [address] 77261- 2623 Jun, Other dorsalgia M54.89 [facility] [address] 06792- 6619 May, [facility] [address] 86704- 4629 May, Radicular leg pain M54.10 and Other dorsalgia M54.89 [facility] [id number] [place] [address] 39111- 4863 Apr, [facility] [id number] [place] [address] 28410- 2372 Mar, [facility] [id number] [place] [address] 34842- 7325 Mar, [facility] [address] 16563- 3494 Mar, Radicular leg pain M54.10 [facility] [id number] [place] [address] 16721- 0664 Feb, [facility] [address] 72939- 4886 Feb, [facility] [id number] [place] [address] 66078- 1006 Feb, [facility] [id number] [place] [address] [id number]- 0296 Jan, [facility] [id number] [place] [address] [id number]- 6397 Jan, IBS (irritable bowel syndrome) 564.1 [facility] [id number] [place] [address] 07380- 1754 Jan, [facility] [id number] [place] [address] 11153- 0892 Jan, [facility] [id number] [place] [address] 90459- 5076 Jan, Diabetes mellitus without mention of complication, type II or unspecified type, not stated as uncontrolled 250.00 ; Gastroparesis 536.3 and Hypoacusis 389.9 [facility] [id number] [address] Jan, [facility] [id number] [place] [address] 17350- 1574 Jan, [facility] [id number] [place] [address] 44247- 0284 Dec, [facility] [id number] [place] [address] 01829- 0148 Dec, [facility] [address], [place] [address] Dec, [facility] [id number] [place] [address] 67[address]- 1965 Dec, Back pain 724.5 and Gastroparesis 536.3 [facility] [id number] [address] Nov, [id number] [id number] Nov, Dental examination V72.2 [facility] [address], [place] [address] Nov, [facility] [address] [place] [address] Nov, [facility] [id number] [place] [address] 49087- 9340 Nov, Depressive disorder, not elsewhere classified 311 and No condition on [place] II V71.09 [facility] [id number] [place] [address] 70232- 2581 Nov, Diabetes 250.00 and Symptomatic menopausal or female climacteric states 627.2 [facility] [id number], [place] [address] Oct, [facility] [id number] [place] [address] 01325- 6785 Oct, Lumbar strain 847.2 [facility] [address], [place] [address]607 Oct, Gastroparesis 536.3 and Unspecified myalgia and myositis 729.1 [facility] [address] [address] [place] [address] 14 Aug, 2014 [facility] [address] [place] [address] Aug, [facility] [address], [place] [address] Jul, [facility] [address], [place] [address] Jul, [facility] [address] [place] [address] Jul, [facility] [address] [place] [address] Jul, [facility] [place] [facility] [address] [id number] [place] [address] Jul, [facility] [place] [facility] [address] [id number] [place] [address] Jun, [facility] [place] [facility] [address] [id number] [place] [address] Jun, [facility] [place] [facility] [address] [id number] [place] [address] Jun, [facility] [place] [facility] [address] [id number] [place] [address] May, [facility] [place] [facility] [address] [id number] [place] [address] May, [facility] [place] [facility] [address] [id number] [place] [address] Mar, [facility] [place] [facility] [address] [id number] [place] [address] Mar, [facility] [place] [facility] [address] [id number] [place] [address] Mar, [facility] [place] [facility] [address] [id number] [place] [address] Mar, [facility] [place] [facility] [address] [id number] [place] [address] Mar, [facility] [place] [facility] [address] [id number] [place] [address] Mar, [facility] [place] [facility] [address] [id number] [place] [address] Feb, [facility] [place] [facility] [address] [id number] [place] [address] Feb, [facility] [place] [facility] [address] [id number] [place] [address] Nov, [facility] [place] [facility] [address] [id number] [place] [address] 11 Nov, 2012 [facility] [address] [id number] [place] [address] Nov, [facility] [address] [id number] [place] [address] Oct, [facility] [address] [id number] [place] [address] September, [facility] [address] [id number] [place] [address] Aug, [facility] [address] [id number] [place] [address] Aug, [facility] [address] [id number] [place] [address] Aug, [facility] [address] [id number] [place] [address] Aug, [facility] [address] [id number] [place] [address] Aug, [facility] [address] [id number] [place] [address] Aug, [facility] [address] [id number] [place] [address] Aug, [facility] [address] [id number] [place] [address] Aug, [facility] [address] [id number] [place] [address] Jul, [facility] [address] [id number] [place] [address] Jul, [facility] [address] [id number] [place] [address] Jun, [facility] [address] [id number] [place] [address] Jun, [facility] [id number] [address] Jun, [facility] [address], [place] [address] Jun, [facility] [address], [place] [address] Jun, [facility] [address], [place] [address] Jun, [facility] [address], [place] [address] Jun, [facility] [address], [place] [address] May, [facility] [address], [place] [address] May, [facility] [address] [place] [address] May, [facility] [address] [place] [address] May, [facility] [address], [place] [address] Mar, [facility] [address], [place] [address] Mar, [facility] [id number], [place] [address] Jan, IMMUNIZATIONS No Known Immunizations SOCIAL HISTORY [...] vomitting-[facility] 03/05/17 Hospitalization History hospital stay at [facility] for stomach issues 2016
--- OUTSIDE RECORDS SUMMARY | 2018-01-27 20:04 | XMS REPORT ---
Author Author HORACE HIGGINS [facility] Address [address] [place] [address] Care Team Providers Care Camp Advisor Name Role Phone HORACE HIGGINS Unavailable PROBLEMS Type Condition ICD9-CM Code DML62-OG Code Onset Dates Condition Status SNOMED Code Problem History of colon polyps Z86.010 Active 636385871 Problem Asthma exacerbation J45.901 Active 820239234 Problem Primary insomnia F51.01 Active 1040052 Problem Tobacco dependency F17.200 Active 11029504 Problem Low TSH level R94.6 Active 111774559 Problem Annual physical exam Z00.00 Active 902601642 Problem Diabetic polyneuropathy associated with type 2 diabetes mellitus E11.42 Active 22546440 Problem Reactive depression F32.9 Active 38717136 Problem Migraine without aura and without status migrainosus, not intractable G43.009 Active 624188665 Problem PTSD (post-traumatic stress disorder) F43.10 Active 58556511 Problem Diabetes E11.9 Active 41196247 Problem Gastroparesis K31.84 Active 624717245 Problem Back pain M54.9 Active 041731055 Problem Neuropathy G62.9 Active 524380476 Problem Type 2 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 Active 34772059 Problem Uncomplicated asthma, unspecified asthma severity J45.909 Active 054318869 Problem care home 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 Z79.4 Active 983222339 Problem Anorexia R63.0 Active 96080017 Problem Mixed hyperlipidemia E78.2 Active 830598238 Problem Weight loss R63.4 Active 362152055 ALLERGIES No Information ENCOUNTERS Encounter Location Date Diagnosis [facility] [id number], [place] [address] Jan, [facility] [id number], [place] [address] Dec, [facility] [address] [id number] Nov, [facility] [id number] [place] [address] 02361- 9339 Nov, Other dorsalgia M54.89 [facility] [id number] [place] [address] 34792- 8386 Nov, [facility] [id number] [place] [address] 64776- 6775 Nov, LLQ pain R10.32 ; Low TSH level R94.6 and Gastroparesis K31.84 [facility] [id number] [place] [address] 62939- 1243 Nov, Anorexia R63.0 [facility] [id number] [place] [address] 65135- 3549 Nov, Asthma exacerbation J45.901 [facility] [id number] [place] [address] 43043- 5658 Oct, PTSD (post-traumatic stress disorder) F43.10 [facility] [id number] [place] [address] 09789- 1373 Oct, [facility] [id number] [place] [address] 94632- 5402 Oct, PTSD (post-traumatic stress disorder) F43.10 and Tobacco dependency F17.200 [facility] [id number] [place] [address] 24894- 0027 Oct, [facility] [id number] [place] [address] 65161- 7247 Oct, Other dorsalgia M54.89 [facility] [id number] [place] [address] 05455- 1250 Oct, Anorexia R63.0 [facility] [id number] [place] [address] 11764- 7489 September, PTSD (post-traumatic stress disorder) F43.10 [facility] [address] [address]55- 7714 September, Low TSH level R94.6 [facility] [address] [place] [address] September, Other dorsalgia M54.89 [facility] [address] [place] [address]- 3279 September, Annual physical exam Z00.00 and Migraine without aura and without status migrainosus, not intractable G43.009 [facility] [address] [address]- 348 September, Abnormal TSH R94.6 and Dysfunction of left eustachian tube H69.82 [facility] [address] [address]702 7816 Aug, [facility] [address] 11148- 4668 Aug, Anorexia R63.0 [facility] [address] [id number] Aug, Dental examination Z01.20 and Xerostomia K11.7 [facility] [address] 30480- 8273 Aug, Neuropathy G62.9 [facility] [address] 989431- 6550 Aug, [facility] [address] 01250- 7889 Aug, Other dorsalgia M54.89 [facility] [address] 099983- 2553 Aug, Type 2 diabetes mellitus with diabetic autonomic (poly) neuropathy E11.43 ; Diabetic polyneuropathy associated with type 2 diabetes mellitus E11.42 ; Bronchitis J40 ; Gastroparesis K31.84 and Reactive depression F32.9 [facility] [address] [place] [address] 5846 Aug, PTSD (post-traumatic stress disorder) F43.10 [facility] [address] 44173 2546 Aug, Other dorsalgia M54.89 and Anorexia R63.0 [facility] [address] 56901 2546 Jul, [facility] [address] 06394 2546 Jul, Other dorsalgia M54.89 [facility] [address] 10419- 2746 Jul, [facility] [id number] [place] [address] 87926- 9926 Jul, [facility] [address] 88375- 2383 Jul, PTSD (post-traumatic stress disorder) F43.10 [facility] [id number] [place] [address] 68402- 7756 Jul, [facility] [address] 95442- 2526 Jul, [facility] [id number] [place] [address] 19994- 9386 Jul, [facility] [id number] [place] [address] 54084 2546 Jul, Anorexia R63.0 [facility] [id number] [place] [address] 90174- 3176 Jun, [facility] [id number] [place] [address] 47652- 1126 Jun, Vaginal discharge N89.8 ; Visit for gynecologic examination Z01.419 and Pelvic pressure in female R10.2 [facility] [id number] [place] [address] 07255- 5886 Jun, [facility] [id number] [place] [address] 42976- 5380 Jun, Other dorsalgia M54.89 [facility] [id number] [place] [address] 94216- 7896 Jun, [facility] [address] 04513- 4569 Jun, [facility] [address] 42589- 0488 Jun, [facility] [address] 92632- 9210 May, Back pain M54.9 [facility] [address] 53681- 0045 May, Anorexia R63.0 [facility] [address] 38198- 8703 May, Other dorsalgia M54.89 [facility] [id number] [place] [address] 85844- 3311 May, [facility] [id number] [place] [address] 86596- 3967 May, Bronchitis J40 [facility] [id number] [place] [address] 55045- 5142 May, Type 2 diabetes mellitus with diabetic autonomic (poly) neuropathy E11.43 ; 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 ; Back pain M54.9 and Neuropathy G62.9 [facility] [id number] [place] [address] 69739- 5454 May, Left breast mass N63.20 [facility] [id number] [place] [address] 68505- 4218 May, [facility] [id number] [place] [address] 92443- 1422 Apr, Other dorsalgia M54.89 [facility] [id number] [place] [address] 39785 2546 Apr, Anorexia R63.0 [facility] [address] 18244- 4856 Apr, Anorexia R63.0 [facility] [address] 74604- 5334 Apr, Mass of left breast N63.20 [facility] [address] 43925 2541 Apr, [facility] [address] 98050- 9378 Apr, [facility] [address] 22649- 4017 Apr, Diarrhea of presumed infectious origin A09 [facility] [address] 53325- 4590 Apr, Encounter for immunization Z23 [facility] [address] 90968- 5882 Apr, [facility] [id number] [place] [address] 97051- 8678 Mar, Other dorsalgia M54.89 [facility] [address] 55222 2546 Mar, [facility] [id number] [place] [address] 21619 2546 Mar, [facility] [address] 72696- 3856 Mar, Anorexia R63.0 [facility] [id number] [place] [address] 24187- 2546 Mar, [facility] [address] 40358- 2222 Mar, Other dorsalgia M54.89 [facility] [id number] [place] [address] 41468- 8078 Mar, [facility] [address] 53473- 1609 Mar, Encounter for immunization Z23 [facility] [address] 61954- 1166 Feb, Anorexia R63.0 [facility] [address] 27124- 6845 Feb, Diabetes E11.9 [facility] [address] 27332- 8783 Feb, Back pain M54.9 and Diabetes E11.9 [facility] [address] 74614- 9345 Feb, Diabetes E11.9 [facility] [address] 02048- 3695 Feb, Neuropathy G62.9 [facility] [address] 75268- 7355 Feb, Encounter for immunization Z23 ; Epigastric pain R10.13 ; Weight loss, abnormal R63.4 and Neuropathy G62.9 [facility] [id number] [place] [address] [id number] Feb, [facility] [id number] [place] [address] 80853- 2087 Feb, [facility] [id number] [place] [address] 12980- 3950 Feb, Intractable vomiting with nausea, unspecified vomiting type R11.2 [facility] [id number] [place] [address] 80648 -8751 Feb, Chronic nausea R11.0 [facility] [address] 71486- 3049 Feb, Other dorsalgia M54.89 [facility] [id number] [place] [address] 62849 2546 Jan, [facility] [id number] [place] [address] 21185 2546 Jan, [facility] [id number] [place] [address] 03103 2546 Jan, [facility] [id number] [place] [address] 30114- 2546 Jan, [facility] [id number] [place] [address] 26632 2546 Jan, Asthma exacerbation J45.901 ; Bronchitis J40 and Neuropathy G62.9 [facility] [id number] [place] [address] 88970 2546 Jan, Anorexia R63.0 [facility] [address] 93967 2549 Jan, Other dorsalgia M54.89 [facility] [id number] [place] [address] 37790- 5166 Dec, [facility] [id number] [place] [address] 58111- 1072 Dec, [facility] [id number] [place] [address] 29799- 0927 Dec, Anorexia R63.0 [facility] [id number] [place] [address] 50502 2546 Dec, Primary insomnia F51.01 [facility] [id number] [place] [address] 73637 2546 Dec, Other dorsalgia M54.89 [facility] [id number] [place] [address] 62057 2546 Dec, [facility] [id number] [place] [address] 37944- 0717 Nov, [facility] [id number] [place] [address] 50278- 3569 Nov, [facility] [id number] [place] [address] 13343- 5197 Nov, [facility] [id number] [place] [address] 43357- 1671 Nov, History of colon polyps Z86.010 [facility] [id number] [place] [address] 66915- 8314 Nov, Weight loss R63.4 ; Nausea and vomiting, intractability of vomiting not specified, unspecified vomiting type R11.2 and Abnormal LFTs R79.89 [facility] [id number] [place] [address] 11639- 3657 Nov, [facility] [address] 21303- 5833 Nov, Neuropathy G62.9 and Pain in right knee M25.561 [facility] [id number] [place] [address] 04383- 7813 Nov, Back pain M54.9 [facility] [id number] [place] [address] 81618- 4828 Nov, [facility] [id number] [place] [address] 09302- 0679 Nov, Bronchitis J40 [facility] [id number] [place] [address] 02083- 2627 Nov, Weight loss R63.4 [facility] [id number] [place] [address] 47234- 3554 Oct, Back pain M54.9 [facility] [id number] [place] [address] 96983- 2296 Oct, [facility] [id number] [place] [address] 63268- 8198 14 Oct, 2016 Back pain M54.9 [facility] [id number] [place] [address] 20281- 4003 Oct, Type 2 diabetes mellitus without complications E11.9 and Bronchitis J40 [facility] [id number] [place] [address] 06117- 8205 Oct, [facility] [id number] [place] [address] 24255- 5935 Oct, [facility] [id number] [place] [address] 25643- 4856 September, Gastroparesis K31.84 ; Type 2 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 and Neuropathy G62.9 [facility] [id number] [place] [address] 15886- 8645 September, Other dorsalgia M54.89 [facility] [id number] [place] [address] 88933- 2067 September, [facility] [id number] [place] [address] 09948- 8266 September, [facility] [id number] [place] [address] 22890- 6325 Aug, Gastroparesis K31.84 and Radicular leg pain M54.10 [facility] [id number] [place] [address] 37764- 8826 Aug, Anorexia R63.0 [facility] [id number] [place] [address] 90226- 0639 Aug, Bronchitis J40 [facility] [id number] [place] [address] 57238- 8042 Aug, Back pain M54.9 [facility] [address] [place] [address] 38693- 5819 Aug, Routine gynecological examination Z01.419 ; Routine screening for STI (sexually transmitted infection) Z11.3 and Yeast infection of the vagina B37.3 [facility] [id number] [place] [address] 25811- 8040 Jul, Other dorsalgia M54.89 [facility] [address] 64601- 6784 Jul, Diabetes E11.9 and Gastroparesis K31.84 [facility] [address] 49575- 8654 Jun, [facility] [address] 00648- 5260 Jun, Back pain M54.9 [facility] [address] 84903- 4005 14 Jun, 2016 Neuropathy G62.9 [facility] [address] [id number] Jun, Encounter for dental examination Z01.20 [facility] [address] 43791- 7331 Jun, Gastroparesis 536.3 and Anorexia R63.0 [facility] [address] 62587- 6998 May, Other dorsalgia M54.89 [facility] [id number] [place] [address] 65590- 5163 May, Periumbilical abdominal pain R10.33 ; Weight loss R63.4 and Gastroparesis K31.84 [facility] [id number] [place] [address] 49036- 7403 May, Back pain M54.9 [facility] [address] 09795- 7759 Apr, Anorexia R63.0 [facility] [id number] [place] [address] 64341- 7830 Apr, Anorexia R63.0 [facility] [id number] [place] [address] 25431- 5540 16 Apr, 2016 Back pain M54.9 [facility] [address] 01212- 0945 Apr, Back pain M54.9 [facility] [id number] [place] [address] 51437- 7449 Apr, [facility] [address] 88923- 3844 Apr, Bronchitis J40 and Neuropathy G62.9 [facility] [id number] [place] [address] 78725- 3784 Apr, Neuropathy G62.9 [facility] [address] 85005- 3605 Apr, [facility] [address] 80038- 8707 Apr, Back pain M54.9 [facility] [id number] [place] [address] 31160- 6048 Mar, Type 2 diabetes mellitus with diabetic autonomic (poly) neuropathy E11.43 [facility] [id number] [place] [address] 73729- 7708 Mar, Type 2 diabetes mellitus without complications E11.9 [facility] [id number] [place] [address] 88141- 8135 Mar, Neuropathy G62.9 [facility] [id number] [place] [address] 00769- 7857 Mar, [facility] [id number] [place] [address] 58350- 8363 Mar, Breast cancer screening Z12.39 [facility] [id number] [place] [address] 30197- 6104 Mar, Other dorsalgia M54.89 [facility] [id number] [place] [address] 16878- 6692 Feb, [facility] [id number] [place] [address] 84467- 4339 30 Jan, 2016 Neuropathy G62.9 ; Type 2 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 ; Uncomplicated asthma, unspecified asthma severity J45.909 and Encounter for immunization Z23 [facility] [id number] [place] [address] 06728- 8623 Jan, [facility] [id number] [place] [address] 27568- 9323 Jan, [facility] [id number] [place] [address] 48745- 1553 Dec, [facility] [id number] [place] [address] 87264- 9315 Dec, [facility] [id number] [place] [address] 78321- 2294 Nov, [facility] [id number] [place] [address] 52782- 4387 Nov, Back pain M54.9 [facility] [id number] [place] [address] 41192- 1920 Nov, Neuropathy G62.9 ; Mixed hyperlipidemia E78.2 ; Type 2 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 and care home 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 Z79.4 [facility] [id number] [place] [address] 06142- 4951 Oct, [facility] [id number] [place] [address] 94062- 6573 Oct, Other dorsalgia M54.89 [facility] [id number] [place] [address] 37455- 3596 September, Primary insomnia F51.01 [facility] [id number] [place] [address] 17891- 5128 September, [facility] [id number] [place] [address] 13284- 8394 Aug, Other dorsalgia M54.89 [facility] [address] 62994- 6150 Jul, [facility] [id number] [place] [address] 10341- 3549 Jul, Other dorsalgia M54.89 [facility] [address] 47895- 3536 Jul, Diabetes E11.9 ; Back pain M54.9 ; Neuropathy G62.9 and Gastroparesis K31.84 [facility] [address] 72558- 9061 Jun, [facility] [address] 89014- 3087 Jun, Other dorsalgia M54.89 [facility] [address] 68951- 3062 May, [facility] [address] 17309- 3593 May, Radicular leg pain M54.10 and Other dorsalgia M54.89 [facility] [id number] [place] [address] 29899- 5761 Apr, [facility] [id number] [place] [address] 40314- 6925 Mar, [facility] [id number] [place] [address] 47956- 5755 Mar, [facility] [address] 94275- 1720 Mar, Radicular leg pain M54.10 [facility] [id number] [place] [address] 10248- 5324 Feb, [facility] [address] 37699- 5273 Feb, [facility] [id number] [place] [address] 98382- 4472 Feb, [facility] [id number] [place] [address] 526228- 5920 Jan, [facility] [id number] [place] [address] 263359- 5190 Jan, IBS (irritable bowel syndrome) 564.1 [facility] [id number] [place] [address] 81368- 4203 Jan, [facility] [id number] [place] [address] 85058- 2541 Jan, [facility] [id number] [place] [address] 70281- 5844 Jan, Diabetes mellitus without mention of complication, type II or unspecified type, not stated as uncontrolled 250.00 ; Gastroparesis 536.3 and Hypoacusis 389.9 [facility] [id number] [address] Jan, [facility] [id number] [place] [address] 55549- 7865 Jan, [facility] [id number] [place] [address] 83807- 4221 Dec, [facility] [id number] [place] [address] 17521- 8207 Dec, [facility] [address], [place] [address] Dec, [facility] [id number] [place] [address] 31882- 8304 Dec, Back pain 724.5 and Gastroparesis 536.3 [facility] [id number] [address] Nov, [id number] [id number] Nov, Dental examination V72.2 [facility] [address], [place] [address] Nov, [facility] [address], [place] [address] Nov, [facility] [id number] [place] [address] 26764- 6164 Nov, Depressive disorder, not elsewhere classified 311 and No condition on [place] II V71.09 [facility] [id number] [place] [address] 95130- 4907 Nov, Diabetes 250.00 and Symptomatic menopausal or female climacteric states 627.2 [facility] [address], [place] [address] Oct, [facility] [id number] [place] [address] 37802- 1033 Oct, Lumbar strain 847.2 [facility] [address], [place] [address] Oct, Gastroparesis 536.3 and Unspecified myalgia and myositis 729.1 [facility] [address], [place] [address] 14 Aug, 2014 [facility] [address], [place] [address] Aug, [facility] [address] [place] [address] Jul, [facility] [address], [place] [address] 6967 Jul, [facility] [address] [place] [address] 4026 Jul, [facility] [address], [place] [address] Jul, [facility] [place] [facility] [address] [id number] [place] [address] Jul, [facility] [place] [facility] [address] [id number] [place] [address] 4771 Jun, [facility] [place] [facility] [address] [id number] [place] [address]- 2424 Jun, [facility] [place] [facility] [address] [id number] [place] [address]- 9517 Jun, [facility] [place] [facility] [address] [id number] [place] [address]- 4253 May, [facility] [place] [facility] [address] [id number] [place] [address] 9213 May, [facility] [place] [facility] [address] [id number] [place] [address]- 0758 Mar, [facility] [place] [facility] [address] [address] [id number] [place] [address] Mar, [facility] [place] [facility] [address] [id number] [place] [address] Mar, [facility] [place] [facility] [address] [id number] [place] [address] Mar, [facility] [place] [facility] [address] [id number] [place] [address] Mar, [facility] [place] [facility] [address] [id number] [place] [address] Mar, [facility] [place] [facility] [address] [id number] [place] [address] Feb, [facility] [place] [facility] [address] [id number] [place] [address] Feb, [facility] [place] [facility] [address] [id number] [place] [address] Nov, [facility] [place] [facility] [address] [id number] [place] [address] 11 Nov, 2012 [facility] [address] [id number] [place] [address] Nov, [facility] [address] [id number] [place] [address] Oct, [facility] [address] [id number] [place] [address] September, [facility] [address] [id number] [place] [address] Aug, [facility] [address] [id number] [place] [address] Aug, [facility] [address] [id number] [place] [address] Aug, [facility] [address] [id number] [place] [address] Aug, [facility] [address] [id number] [place] [address] Aug, [facility] [address] [id number] [place] [address] Aug, [facility] [address] [id number] [place] [address] Aug, [facility] [address] [id number] [place] [address] Aug, [facility] [address] [id number] [place] [address] Jul, [facility] [address] [id number] [place] [address] Jul, [facility] [address] [id number] [place] [address] Jun, [facility] [address] [id number] [place] [address] Jun, [facility] [address] [place] [address] Jun, [facility] [id number] Jun, [facility] [id number] [place] [address] Jun, [facility] [id number] [place] [address] Jun, [facility] [id number] [address] Jun, [facility] [id number] [place] [address] May, [facility] [id number] [place] [address] May, [facility] [id number] [place] [address] May, [facility] [id number], [place] [address] May, [facility] [address] [place] [address] Mar, [facility] [address] [place] [address] Mar, [facility] [id number] [place] [address] Jan, IMMUNIZATIONS No Known Immunizations SOCIAL HISTORY Never Assessed REASON FOR VISIT BS f/u PLAN OF CARE VITAL SIGNS MEDICATIONS Medication Instructions Dosage Frequency Start Date End Date Duration Status Jay Dietz 100 8 units 12h Active RESULTS No Results PROCEDURES No Known [...] vomitting-[facility] 03/05/17 Hospitalization History hospital stay at [facility] for stomach issues 2016
--- OUTSIDE RECORDS SUMMARY | 2018-01-27 20:05 | XMS REPORT ---
Author Author HORACE HIGGINS [facility] Address [address] [place] [address] Care Team Providers Care Annual Greenhouse Manager Name Role Phone HORACE HIGGINS Unavailable PROBLEMS Type Condition ICD9-CM Code WSJ01-NI Code Onset Dates Condition Status SNOMED Code Problem Weight loss R63.4 Active 379608118 Problem Primary insomnia F51.01 Active 2327520 Problem History of colon polyps Z86.010 Active 114175494 Problem Annual physical exam Z00.00 Active 500352921 Problem Migraine without aura and without status migrainosus, not intractable G43.009 Active 183367566 Problem Reactive depression F32.9 Active 26704158 Problem Asthma exacerbation J45.901 Active 014571046 Problem PTSD (post-traumatic stress disorder) F43.10 Active 19009056 Problem Diabetic polyneuropathy associated with type 2 diabetes mellitus E11.42 Active 23142617 Problem Neuropathy G62.9 Active 076350791 Problem Diabetes E11.9 Active 97598708 Problem Back pain M54.9 Active 680681626 Problem Type 2 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 Active 26065238 Problem 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 Non Drug Allergy Feb, Active ENCOUNTERS Encounter Location Date Diagnosis [facility] [address] [facility] [id number] [address] September, [place] [address] [address] September, [place] [address] 00290- 8800 September, Annual physical exam Z00.00 and Migraine without aura and without status migrainosus, not intractable G43.009 [place] [address] [place] [id number] September, Abnormal TSH R94.6 and Dysfunction of left eustachian tube H69.82 [place] [address] 6[address] 4579 Aug, [place] [address] 27044- 0749 Aug, Anorexia R63.0 [facility] [address] [id number] Aug, Dental examination Z01.20 and Xerostomia K11.7 [place] [address] 08973- 3091 Aug, Neuropathy G62.9 [place] [address] 43313- 2251 Aug, [place] [address] 31793- 4868 Aug, Other dorsalgia M54.89 [place] [address] 31080- 5886 Aug, Type 2 diabetes mellitus with diabetic autonomic (poly) neuropathy E11.43 ; Diabetic polyneuropathy associated with type 2 diabetes mellitus E11.42 ; Bronchitis J40 ; Gastroparesis K31.84 and Reactive depression F32.9 [place] [address] 55978- 1552 Aug, PTSD (post-traumatic stress disorder) F43.10 [place] [address] 68188 2546 Aug, Other dorsalgia M54.89 and Anorexia R63.0 [facility] [address] 00504 2546 Jul, [facility] [address] 41832 2546 Jul, Other dorsalgia M54.89 [facility] [address] 68617 2546 Jul, [facility] [address] 86733 2546 Jul, [facility] [address] 26125 2546 Jul, PTSD (post-traumatic stress disorder) F43.10 [facility] [address] 48522 2546 Jul, [facility] [address] [place] [id number] [place] [address] 85256 2546 Jul, [facility] [address] 11855 2546 Jul, [facility] [address] [place] [id number] [place] [address] 55221 2546 Jul, Anorexia R63.0 [facility] [address] [place] [id number] [place] [address] 14501 2546 Jun, [facility] [address] [place] [id number] [place] [address] 85327 2546 Jun, Vaginal discharge N89.8 ; Visit for gynecologic examination Z01.419 and Pelvic pressure in female R10.2 [facility] [address] [place] [id number] [place] [address] 74203 2546 Jun, [facility] [address] [place] [id number] [place] [address] 48663 2546 Jun, Other dorsalgia M54.89 [facility] [address] [place] [id number] [place] [address] 45046- 1730 Jun, [facility] [address] 97930- 8836 Jun, [facility] [address] [place] [id number] [place] [address] 87071- 6359 Jun, [facility] [address] 95484- 8817 May, Back pain M54.9 [facility] [address] 86399- 7024 May, Anorexia R63.0 [facility] [address] 20302- 2120 May, Other dorsalgia M54.89 [facility] [address] 47222- 8765 May, [facility] [address] [place] [id number] [place] [address] 24294- 2080 May, Bronchitis J40 [facility] [address] 13713- 0232 May, Type 2 diabetes mellitus with diabetic autonomic (poly) neuropathy E11.43 ; 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 ; Back pain M54.9 and Neuropathy G62.9 [facility] [address] [place] [id number] [place] [address] 62798- 3198 May, Left breast mass N63.20 [facility] [address] [place] [id number] [place] [address] 44570- 5959 May, [facility] [address] [place] [id number] [place] [address] 62372- 9034 Apr, Other dorsalgia M54.89 [facility] [address] [place] [id number] [place] [address] 16036- 2892 Apr, Anorexia R63.0 [facility] [address] [place] [id number] [place] [address] 04059- 9725 Apr, Anorexia R63.0 [facility] [address] [place] [id number] [place] [address] 46984- 6376 Apr, Mass of left breast N63.20 [facility] [address] [place] [id number] [place] [address] 88751- 6396 Apr, [facility] [address] [place] [id number] [place] [address] 18411- 3242 Apr, [facility] [address] [place] [id number] [place] [address] 77175- 7723 Apr, Diarrhea of presumed infectious origin A09 [facility] [address] [place] [id number] [place] [address] 52659- 9850 Apr, Encounter for immunization Z23 [facility] [address] 49017- 3795 Apr, [facility] [address] [place] [id number] [place] [address] 37394- 1921 Mar, Other dorsalgia M54.89 [facility] [address] [place] [id number] [place] [address] 56700- 7030 Mar, [facility] [address] [place] [id number] [place] [address] 85683- 4904 Mar, [facility] [address] [place] [id number] [place] [address] 36765- 5983 Mar, Anorexia R63.0 [facility] [address] [place] [id number] [place] [address] 62635- 6808 Mar, [facility] [address] [place] [id number] [place] [address] 16336- 0186 Mar, Other dorsalgia M54.89 [facility] [address] [place] [id number] [place] [address] 31298- 2527 Mar, [facility] [address] [place] [id number] [place] [address] 20105- 8924 Mar, Encounter for immunization Z23 [facility] [address] 31235- 9388 Feb, Anorexia R63.0 [facility] [address] 64785- 8501 Feb, Diabetes E11.9 [facility] [address] 36278- 8158 Feb, Back pain M54.9 and Diabetes E11.9 [facility] [address] 20915- 4399 Feb, Diabetes E11.9 [facility] [address] 18141- 8713 Feb, Neuropathy G62.9 [facility] [address] 69220- 0667 Feb, Encounter for immunization Z23 ; Epigastric pain R10.13 ; Weight loss, abnormal R63.4 and Neuropathy G62.9 [facility] [address] [id number] Feb, [facility] [address] [place] [id number] [place] [address] 21214- 8764 Feb, [facility] [address] 73847- 2030 Feb, Intractable vomiting with nausea, unspecified vomiting type R11.2 [facility] [address] [place] [id number] [place] [address] 65324 -8551 Feb, Chronic nausea R11.0 [facility] [address] [place] [id number] [place] [address] 24626- 0116 Feb, Other dorsalgia M54.89 [facility] [address] [place] [id number] [place] [address] 22385- 1737 Jan, [facility] [id number] [place] [address] 66019 2546 Jan, [facility] [address] [place] [id number] [place] [address] 02377 2546 Jan, [facility] [address] [place] [id number] [place] [address] 91114 2546 Jan, [facility] [address] 96899 2546 Jan, Asthma exacerbation J45.901 ; Bronchitis J40 and Neuropathy G62.9 [facility] [address] [place] [id number] [place] [address] 59904 2546 Jan, Anorexia R63.0 [facility] [address] [place] [id number] [place] [address] 62949 2546 Jan, Other dorsalgia M54.89 [facility] [address] [place] [id number] [place] [address] 04981- 6896 Dec, [facility] [address] [place] [id number] [place] [address] 87240 2545 Dec, [facility] [address] [place] [id number] [place] [address] 33791 2543 Dec, Anorexia R63.0 [facility] [address] [place] [id number] [place] [address] 97866- 4097 Dec, Primary insomnia F51.01 [facility] [address] [place] [id number] [place] [address] 05843 2544 Dec, Other dorsalgia M54.89 [facility] [address] [place] [id number] [place] [address] 88885 2546 Dec, [facility] [address] [place] [id number] [place] [address] 44522 2546 Nov, [facility] [address] [place] [id number] [place] [address] 74130 2546 Nov, [facility] [address] [place] [id number] [place] [address] 75053- 9301 Nov, [facility] [address] [place] [id number] [place] [address] 01226- 7040 Nov, History of colon polyps Z86.010 [facility] [address] [place] [id number] [place] [address] 72565- 7376 Nov, Weight loss R63.4 ; Nausea and vomiting, intractability of vomiting not specified, unspecified vomiting type R11.2 and Abnormal LFTs R79.89 [facility] [address] [place] [id number] [place] [address] 60724- 5115 Nov, [place] [address] [place] [id number] [place] [address] 60665- 9351 Nov, Neuropathy G62.9 and Pain in right knee M25.561 [place] [address] [place] [id number] [place] [address] 40436- 7025 Nov, Back pain M54.9 [facility] [address] [place] [id number] [place] [address] 73498- 3246 Nov, [facility] [address] [place] [id number] [place] [address] 48962- 1201 Nov, Bronchitis J40 [facility] [address] [place] [id number] [place] [address] 98612- 8451 Nov, Weight loss R63.4 [facility] [address] [place] [id number] [place] [address] 66183- 4116 Oct, Back pain M54.9 [facility] [address] [place] [id number] [place] [address] 28213- 6545 Oct, [facility] [address] [place] [id number] [place] [address] 58173- 8981 14 Oct, 2016 Back pain M54.9 [facility] [address] [place] [id number] [place] [address] 85591- 2591 13 Oct, 2016 Type 2 diabetes mellitus without complications E11.9 and Bronchitis J40 [facility] [address] [address]- 3978 Oct, [facility] [address] [place] [id number] [place] [address] 05703- 0470 Oct, [facility] [address] [place] [id number] [place] [address] 94483- 2250 September, Gastroparesis K31.84 ; Type 2 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 and Neuropathy G62.9 [facility] [address] [place] [id number] [place] [address] 74669- 5345 September, Other dorsalgia M54.89 [facility] [address] [place] [id number] [place] [address] 44775- 9995 September, [facility] [address] [place] [id number] [place] [address] 39155- 1878 September, [facility] [address] [place] [id number] [place] [address] 20528- 9734 Aug, Gastroparesis K31.84 and Radicular leg pain M54.10 [facility] [address] [place] [id number] [place] [address] 95172- 9060 Aug, Anorexia R63.0 [facility] [address] [place] [id number] [place] [address] 26351- 0462 Aug, Bronchitis J40 [facility] [address] [place] [id number] [place] [address] 08232- 5249 Aug, Back pain M54.9 [facility] [id number] [place] [address] 42256- 2308 Aug, Routine gynecological examination Z01.419 ; Routine screening for STI (sexually transmitted infection) Z11.3 and Yeast infection of the vagina B37.3 [facility] [id number] [place] [address] 02954- 1743 Jul, Other dorsalgia M54.89 [place] [address] [place] [id number] [place] [address] 30740- 6551 Jul, Diabetes E11.9 and Gastroparesis K31.84 [facility] [address] 20541- 5777 Jun, [facility] [address] 31410- 9962 Jun, Back pain M54.9 [facility] [address] 37872- 3298 14 Jun, 2016 Neuropathy G62.9 [facility] [address] [id number] 02 Jun, 2016 Encounter for dental examination Z01.20 [facility] [address] 44120- 6474 Jun, Gastroparesis 536.3 and Anorexia R63.0 [facility] [address] 46975- 5306 May, Other dorsalgia M54.89 [facility] [address] 72037- 3601 May, Periumbilical abdominal pain R10.33 ; Weight loss R63.4 and Gastroparesis K31.84 [facility] [address] [place] [id number] [place] [address] 12413- 4384 May, Back pain M54.9 [facility] [address] 18409- 6908 Apr, Anorexia R63.0 [facility] [address] 83512- 6227 Apr, Anorexia R63.0 [facility] [address] 76362- 4489 Apr, Back pain M54.9 [facility] [address] 86235- 8253 Apr, Back pain M54.9 [facility] [address] [place] [id number] [place] [address] 75857- 4316 Apr, [facility] [address] [place] [id number] [place] [address] 21096- 8420 Apr, Bronchitis J40 and Neuropathy G62.9 [facility] [address] [place] [id number] [place] [address] 92164- 0536 Apr, Neuropathy G62.9 [facility] [address] [place] [id number] [place] [address] 32486- 4601 Apr, [facility] [address] [place] [id number] [place] [address] 83922- 1110 Apr, Back pain M54.9 [facility] [address] [place] [id number] [place] [address] 54521- 8829 Mar, Type 2 diabetes mellitus with diabetic autonomic (poly) neuropathy E11.43 [facility] [address] [place] [id number] [place] [address] 28970- 5792 Mar, Type 2 diabetes mellitus without complications E11.9 [facility] [address] [place] [id number] [place] [address] 68917- 4384 Mar, Neuropathy G62.9 [facility] [address] [place] [id number] [place] [address] 65464- 2360 Mar, [facility] [address] [place] [id number] [place] [address] 69131- 2018 Mar, Breast cancer screening Z12.39 [facility] [address] [place] [id number] [place] [address] 86252- 6587 Mar, Other dorsalgia M54.89 [facility] [address] [place] [id number] [place] [address] 66827- 8961 Feb, [facility] [address] [place] [id number] [place] [address] 70119- 1536 Jan, Neuropathy G62.9 ; Type 2 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 ; Uncomplicated asthma, unspecified asthma severity J45.909 and Encounter for immunization Z23 [facility] [address] 43225- 7808 Jan, [facility] [address] 81163- 3604 Jan, [facility] [address] 11432- 3006 Dec, [facility] [address] 44845- 0031 Dec, [place] [address] 73368- 6386 Nov, [place] [address] 69699- 0633 Nov, Back pain M54.9 [place] [address] 09638- 3091 Nov, Neuropathy G62.9 ; Mixed hyperlipidemia E78.2 ; Type 2 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 and 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 Z79.4 [place] [address] [place] [id number] [place] [address] 04848- 0660 Oct, [place] [address] 64527- 3718 Oct, Other dorsalgia M54.89 [place] [address] [place] [id number] [place] [address] 37408- 1155 September, Primary insomnia F51.01 [place] [address] 38871- 5977 September, [place] [address] [place] [id number] [place] [address] 91455- 7435 Aug, Other dorsalgia M54.89 [place] [address] [place] [address]- 7955 Jul, [facility] [address] [place] [id number] [place] [address] 57141- 4805 Jul, Other dorsalgia M54.89 [facility] [address] 92865- 6393 Jul, Diabetes E11.9 ; Back pain M54.9 ; Neuropathy G62.9 and Gastroparesis K31.84 [facility] [address] 71250- 6609 Jun, [facility] [address] 51923- 5160 Jun, Other dorsalgia M54.89 [facility] [address] 83408- 2314 May, [facility] [address] 04009- 4950 May, Radicular leg pain M54.10 and Other dorsalgia M54.89 [facility] [address] [place] [id number] [place] [address] 34223- 9694 Apr, [facility] [address] [place] [id number] [place] [address] 45039- 2696 Mar, [facility] [address] [place] [id number] [place] [address] 02277- 1224 Mar, [facility] [address] 31706- 5276 Mar, Radicular leg pain M54.10 [facility] [address] 37689- 5616 Feb, [facility] [address] [place] [id number] [place] [address] 70924- 9836 Feb, [facility] [address] 99521- 7360 Feb, [facility] [address] [place] [id number] [place] [address] 66018- 7162 Jan, [facility] [address] 78677- 2721 Jan, IBS (irritable bowel syndrome) 564.1 [facility] [address] [place] [id number] [place] [address] 97765- 2502 Jan, [facility] [address] [place] [place] [id number] [place] [address] 78319- 7026 Jan, [facility] [address] [place] [id number] [place] [address] [phone]- 5219 Jan, Diabetes mellitus without mention of complication, type II or unspecified type, not stated as uncontrolled 250.00 ; Gastroparesis 536.3 and Hypoacusis 389.9 [facility] [id number] [place] [address] 21164- 9457 Jan, [facility] [id number] [place] [address] [id number]- 5494 Jan, [facility] [id number] [place] [address] 24258- 5640 Dec, [facility] [id number] [place] [address] 81351- 7260 Dec, [facility] [id number] [place] [address] 21533- 2369 Dec, [facility] [id number] [place] [address] 60258- 6006 Dec, Back pain 724.5 and Gastroparesis 536.3 [facility] [id number] [place] [address] 86532- 0711 Nov, [facility] [id number] [place] [address] [id number] Nov, Dental examination V72.2 [facility] [id number] [place] [address] 08302- 5945 Nov, [facility] [id number] [address] Nov, [facility] [id number] [address] Nov, Depressive disorder, not elsewhere classified 311 and No condition on [place] II V71.09 [facility] [id number] [place] [address] [id number]- 5389 Nov, Diabetes 250.00 and Symptomatic menopausal or female climacteric states 627.2 [facility] [id number] [place] [address] 14091- 0377 Oct, [facility] [id number] [place] [address] 33618- 2922 Oct, Lumbar strain 847.2 [facility] [id number] [place] [address] 67964- 2587 Oct, Gastroparesis 536.3 and Unspecified myalgia and myositis 729.1 [facility] [id number] [address] 16[address] Aug, [facility] [id number] [address] 0604 Aug, [facility] [id number] [address] 8839 Jul, [facility] [id number] [address] 5061 Jul, [facility] [id number] [address] 2802 Jul, [facility] [id number] [address] [address]40 Jul, [facility] [id number] [address]- 8083 Jul, [facility] [id number] [place] [address]- 6756 Jun, 2014 [facility] [place] [facility] [address] [id number] [place] [address]- 7166 Jun, [facility] [place] [facility] [address] [id number] [place] [address]- 8966 Jun, [facility] [place] [facility] [address] [id number] [place] [address]- 7592 May, [facility] [place] [facility] [address] [id number] [place] [address]- 8408 May, [facility] [place] [facility] [address] [id number] [place] [address]- 1753 Mar, [facility] [place] [facility] [address] [id number] [place] [address]- 1119 Mar, [facility] [place] [facility] [address] [id number] [place] [address]- 9043 Mar, [facility] [place] [facility] [address] [id number] [place] [address] Mar, [facility] [place] [facility] [address] [id number] [place] [address] Mar, [facility] [place] [facility] [address] [id number] [place] [address] Mar, [facility] [place] [facility] [address] [id number] [place] [address] Feb, [facility] [place] [facility] [address] [id number] [place] [address] Feb, [facility] [place] [facility] [address] [id number] [place] [address] Nov, [facility] [place] [facility] [address] [id number] [place] [address] Nov, [facility] [place] [facility] [address] [id number] [place] [address] Nov, [facility] [address] [id number] [place] [address] Oct, [facility] [address] [id number] [place] [address] September, [facility] [address] [id number] [place] [address] Aug, [facility] [place] [facility] [address] [id number] [place] [address] Aug, [facility] [address] [id number] [place] [address] Aug, [facility] [address] [id number] [place] [address] Aug, [facility] [address] [id number] [place] [address] Aug, [facility] [place] [facility] [address] [id number] [place] [address] Aug, [facility] [address] [id number] [place] [address] Aug, [facility] [place] [facility] [address] [id number] [place] [address] Aug, [facility] [place] [facility] [address] [id number], [place] [address] Jul, [facility] [place] [facility] [address] [id number], [place] [address] Jul, [facility] [place] [facility] [address] [id number] [place] [address] Jun, [facility] [place] [facility] [address] [id number], [place] [address] Jun, [facility] [place] [facility] [address] [facility] [id number], [place] [address] Jun, [facility] [place] [facility] [address] [id number] [address] Jun, 2012 [facility] [address] [id number], [place] [address] Jun, [facility] [id number], [place] [address] Jun, [facility] [id number] [address] [address] Jun, [facility] [id number], [place] [address] May, [facility] [id number], [place] [address] May, [facility] [id number], [place] [address] May, [facility] [id number], [place] [address] May, [facility] [id number], [place] [address] Mar, [facility] [id number], [place] [address] Mar, [facility] [address] [id number], [place] [address] Jan, IMMUNIZATIONS No Known Immunizations SOCIAL HISTORY Never Assessed REASON FOR VISIT Vomiting for a week--Holland Enriquez MA PLAN OF CARE Activity Details Follow Up prn Reason: VITAL SIGNS Height 62 in 2017-03-03 Weight 83.4 lbs 2017-03-03 Temperature 98.9 degrees Fahrenheit 2017-03-03 Heart Rate 80 bpm 2017-03-03 Respiratory Rate 20 2017-03-03 BMI 15.25 kg/m2 2017-03-03 Blood pressure systolic 98 mmHg 2017-03-03 Blood pressure diastolic 68 mmHg 2017-03-03 MEDICATIONS Medication Instructions Dosage Frequency Start Date End Date Duration Status Promethazine-Codeine 6.25-10 MG/5ML Orally every 6 hrs 5 ml as needed 6h Jan, Active Promethazine HCl 25 MG Orally every 6 hrs 1 tablet as needed 6h Feb, Feb, 0 days Active Reglan 10 TAKE 1 TABLET BY MOUTH FOUR TIMES DAILY 30 Active Xarelto 20 mg 1 Tablet by Oral route 1 time per day Jul, Active Marinol 5 mg Orally Twice a day 1 capsule before lunch and supper 12h 14 days Active Multiple Vitamins-Iron - Orally Once a day 1 tablet 24h Active MiraLax - Orally Once a day as needed 1 packet mixed with 8 ounces of fluid Active Ondansetron 8 MG Orally every 8 hrs 1 tablet on the tongue and allow to dissolve 8h Feb, 10 days Active Atorvastatin Calcium 40 MG Orally Once a day 1 tablet 24h Active Sucralfate 1 GM Orally Twice a day 1 tablet on an empty stomach 12h Active Cyanocobalamin 1000 MCG Orally Once a day 1 tablet 24h Active Tizanidine HCl 4 MG Orally 2 times a day 1 tablet 12h May, 30 days Active [employer] Pen [place] 31G X 6 MM 1 THREE TIMES A DAY Active Humalog KwikPen 100 INJECT 8 u ac Active Acetaminophen 500 mg Orally at bedtime 2 capsules Active Zofran ODT 8 MG Orally every 6 hrs 1 tablet 6h Active Oxycodone-Acetaminophen 10-325 MG Orally 4 times a day 1 tablet as needed 6h Feb, 28 days Active Albuterol Sulfate 90 mcg/actuation Orally 4 times a day inhale 2 puffs by Inhalation route 4 times per day as needed PRN 6h Jul, Active Escitalopram Oxalate 20 mg Orally Once a day 1 tablet 24h Active Lantus SoloStar 100 Subcutaneous Once a day 10 units at bedtime 24h Active Quad Cane - as directed 24h Apr, Active ProAir HFA 108 INHALE 2 PUFFS BY MOUTH FOUR TIMES DAILY NEEDED 25 Active Lyrica 150 MG Orally Twice a day 1 capsule 12h 30 days Active Comfort Lancets - as directed 8h Mar, Active Chantix Active Ayden Contour Next Test - subcutaneously 3 times a day test blood sugar 8h Active Omeprazole 40 mg 1 CAP(S) ONCE A DAY ORALLY 30 DAYS 30 Active RESULTS No Results PROCEDURES Procedure Date Ordered Result Body Site [facility] VISIT ESTABLISHED PATIENT Mar 03, 2017 INSTRUCTIONS MEDICATIONS ADMINISTERED No Known Medications [...] vomitting-[facility] 03/05/17 Hospitalization History hospital stay at [facility] for stomach issues 2016
--- OUTSIDE RECORDS SUMMARY | 2018-01-27 20:05 | XMS REPORT ---
Author Author HORACE HIGGINS [facility] Address [address] [place] [address] Care Team Providers Care Process Development Associate Name Role Phone HORACE HIGGINS Unavailable PROBLEMS Type Condition ICD9-CM Code QGV32-IF Code Onset Dates Condition Status SNOMED Code Problem Weight loss R63.4 Active 672855956 Problem Primary insomnia F51.01 Active 8041522 Problem History of colon polyps Z86.010 Active 995428642 Problem Annual physical exam Z00.00 Active 638322054 Problem Migraine without aura and without status migrainosus, not intractable G43.009 Active 256642907 Problem Reactive depression F32.9 Active 67741989 Problem Asthma exacerbation J45.901 Active 806294225 Problem PTSD (post-traumatic stress disorder) F43.10 Active 80529044 Problem Diabetic polyneuropathy associated with type 2 diabetes mellitus E11.42 Active 36386527 Problem Neuropathy G62.9 Active 513637360 Problem Diabetes E11.9 Active 31167827 Problem Back pain M54.9 Active 727406968 Problem Type 2 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 Active 18180814 Problem wire spinner 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 Z79.4 Active 018936104 Problem Gastroparesis K31.84 Active 592389558 Problem Uncomplicated asthma, unspecified asthma severity J45.909 Active 333669184 Problem Mixed hyperlipidemia E78.2 Active 990715969 Problem Anorexia R63.0 Active 57929100 ALLERGIES No Information ENCOUNTERS Encounter Location Date Diagnosis [facility] [address] [facility] [id number] [address] September, [facility] [id number] [address] September, [facility] [address] [id number] [address] September, Annual physical exam Z00.00 and Migraine without aura and without status migrainosus, not intractable G43.009 [place] [address] [id number] 013 September, Abnormal TSH R94.6 and Dysfunction of left eustachian tube H69.82 [place] [address] 652 Aug, [facility] [address] 339 Aug, Anorexia R63.0 [facility] [address] [id number] Aug, Dental examination Z01.20 and Xerostomia K11.7 [place] [address] [address] 4963 Aug, Neuropathy G62.9 [place] [address] 74501- 5309 Aug, [place] [address] 91292- 6858 Aug, Other dorsalgia M54.89 [place] [address] 273522- 5641 Aug, Type 2 diabetes mellitus with diabetic autonomic (poly) neuropathy E11.43 ; Diabetic polyneuropathy associated with type 2 diabetes mellitus E11.42 ; Bronchitis J40 ; Gastroparesis K31.84 and Reactive depression F32.9 [place] [id number] [place] [address] 22908- 9780 Aug, PTSD (post-traumatic stress disorder) F43.10 [place] [address] [id number]- 910 Aug, Other dorsalgia M54.89 and Anorexia R63.0 [place] [address] 02811- 2098 Jul, [place] [id number] [place] [address] 16608- 6166 Jul, Other dorsalgia M54.89 [facility] [id number] [place] [address] 41983 2546 Jul, [facility] [id number] [place] [address] 83346 2546 Jul, [facility] [id number] [place] [address] 43090 2546 Jul, PTSD (post-traumatic stress disorder) F43.10 [facility] [id number] [place] [address] 64911- 4056 Jul, [facility] [id number] [place] [address] 35975- 8966 Jul, [facility] [id number] [place] [address] 22302- 5246 Jul, [facility] [id number] [place] [address] 44501 2546 Jul, Anorexia R63.0 [facility] [id number] [place] [address] 46355 2546 27 Jun, 2017 [facility] [id number] [place] [address] 74023 2546 Jun, Vaginal discharge N89.8 ; Visit for gynecologic examination Z01.419 and Pelvic pressure in female R10.2 [facility] [id number] [place] [address] 35667 2546 Jun, [facility] [id number] [place] [address] 46694 2546 Jun, Other dorsalgia M54.89 [facility] [id number] [place] [address] 08092 2546 16 Jun, 2017 [facility] [id number] [place] [address] 52536- 2546 Jun, [facility] [id number] [place] [address] 72719- 0420 Jun, [facility] [id number] [place] [address] 73125- 2295 May, Back pain M54.9 [facility] [address] 63766- 6296 May, Anorexia R63.0 [facility] [address] 58656- 5857 May, Other dorsalgia M54.89 [facility] [address] 48388- 2909 May, [facility] [address] 04434- 2641 May, Bronchitis J40 [facility] [address] 37944- 3910 May, Type 2 diabetes mellitus with diabetic autonomic (poly) neuropathy E11.43 ; wire spinner 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 Z79.4 ; Back pain M54.9 and Neuropathy G62.9 [facility] [id number] [place] [address] 59852- 1396 May, Left breast mass N63.20 [facility] [id number] [place] [address] 11342- 8951 May, [facility] [id number] [place] [address] 45458- 9885 Apr, Other dorsalgia M54.89 [facility] [id number] [place] [address] 93750- 3784 Apr, Anorexia R63.0 [facility] [id number] [place] [address] 81297- 8894 Apr, Anorexia R63.0 [facility] [id number] [place] [address] 22114- 6902 Apr, Mass of left breast N63.20 [facility] [address] [id number] [address] 1001 Apr, [facility] [id number] [place] [address] 41912- 6270 Apr, [facility] [id number] [place] [address] 55868- 5035 Apr, Diarrhea of presumed infectious origin A09 [facility] [id number] [place] [address] 98985- 9747 Apr, Encounter for immunization Z23 [facility] [id number] [place] [address] 03290- 3485 Apr, [facility] [id number] [place] [address] 87652- 8550 Mar, Other dorsalgia M54.89 [facility] [id number] [place] [address] 11980- 0578 Mar, [facility] [id number] [place] [address] 49694- 7569 Mar, [facility] [id number] [place] [address] 00402- 7629 Mar, Anorexia R63.0 [facility] [id number] [place] [address] 92013- 6572 Mar, [facility] [id number] [place] [address] 05197- 9534 Mar, Other dorsalgia M54.89 [facility] [id number] [place] [address] 21035- 1528 Mar, [facility] [id number] [place] [address] 78429- 7687 Mar, Encounter for immunization Z23 [facility] [id number] [place] [address] 77825- 9277 Feb, Anorexia R63.0 [facility] [id number] [place] [address] 08721- 7673 Feb, Diabetes E11.9 [facility] [address] 33987- 3424 Feb, Back pain M54.9 and Diabetes E11.9 [facility] [address] 79784- 2655 Feb, Diabetes E11.9 [facility] [address] 37745- 2451 Feb, Neuropathy G62.9 [facility] [address] 16477- 5510 Feb, Encounter for immunization Z23 ; Epigastric pain R10.13 ; Weight loss, abnormal R63.4 and Neuropathy G62.9 [facility] [address] [id number] Feb, [facility] [address] 16623- 6260 Feb, [facility] [address] 71215- 3035 Feb, Intractable vomiting with nausea, unspecified vomiting type R11.2 [facility] [address] 74685 -5192 Feb, Chronic nausea R11.0 [facility] [id number] [place] [address] 74408- 6201 Feb, Other dorsalgia M54.89 [facility] [address] 30055- 3158 Jan, [facility] [address] 95548- 9635 Jan, [facility] [address] 14572- 0826 Jan, [facility] [id number] [place] [address] 12734 2546 08 Jan, 2017 [facility] [id number] [place] [address] 54466 2546 08 Jan, 2017 Asthma exacerbation J45.901 ; Bronchitis J40 and Neuropathy G62.9 [facility] [id number] [place] [address] 76814- 2546 Jan, Anorexia R63.0 [facility] [id number] [place] [address] 25633 2546 Jan, Other dorsalgia M54.89 [facility] [id number] [place] [address] 80225 2546 Dec, [facility] [id number] [place] [address] 25997 2546 Dec, [facility] [id number] [place] [address] 68492 2546 Dec, Anorexia R63.0 [facility] [id number] [place] [address] 65933 2546 Dec, Primary insomnia F51.01 [facility] [id number] [place] [address] 88123 2546 Dec, Other dorsalgia M54.89 [facility] [id number] [place] [address] 43653 2546 Dec, [facility] [id number] [place] [address] 60173 2546 Nov, [facility] [id number] [place] [address] 06668 2546 Nov, [facility] [id number] [place] [address] 16805 2546 Nov, [facility] [address] [place] [address] 30808 2546 Nov, History of colon polyps Z86.010 [facility] [address] [address]- 9787 Nov, Weight loss R63.4 ; Nausea and vomiting, intractability of vomiting not specified, unspecified vomiting type R11.2 and Abnormal LFTs R79.89 [facility] [id number] [place] [address] 97096- 5996 18 Nov, 2016 [facility] [id number] [place] [address] 74693- 3304 Nov, Neuropathy G62.9 and Pain in right knee M25.561 [facility] [id number] [place] [address] 80524- 8786 Nov, Back pain M54.9 [facility] [id number] [place] [address] 23741- 6438 10 Nov, 2016 [facility] [id number] [place] [address] 85706- 9753 Nov, Bronchitis J40 [facility] [id number] [place] [address] 78335- 6689 03 Nov, 2016 Weight loss R63.4 [facility] [id number] [place] [address] 51965- 2216 16 Oct, 2016 Back pain M54.9 [facility] [id number] [place] [address] 37138 2546 16 Oct, 2016 [facility] [id number] [place] [address] 82089- 4894 14 Oct, 2016 Back pain M54.9 [facility] [address] [place] [address] 15129- 3253 13 Oct, 2016 Type 2 diabetes mellitus without complications E11.9 and Bronchitis J40 [facility] [address] [address]- 2546 05 Oct, 2016 [facility] [id number] [place] [address] 54165- 6809 Oct, [facility] [id number] [place] [address] 43330- 0269 September, Gastroparesis K31.84 ; Type 2 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 and Neuropathy G62.9 [facility] [id number] [place] [address] 85049- 6459 September, Other dorsalgia M54.89 [facility] [id number] [place] [address] 10688- 1183 September, [facility] [address] 03675- 2693 September, [place] [id number] [place] [address] 50658- 9520 Aug, Gastroparesis K31.84 and Radicular leg pain M54.10 [place] [id number] [place] [address] 06409- 8063 Aug, Anorexia R63.0 [place] [id number] [place] [address] 81219- 1148 Aug, Bronchitis J40 [place] [id number] [place] [address] 55178- 0941 Aug, Back pain M54.9 [place] [id number] [place] [address] 73359- 0557 Aug, Routine gynecological examination Z01.419 ; Routine screening for STI (sexually transmitted infection) Z11.3 and Yeast infection of the vagina B37.3 [facility] [id number] [place] [address] 36656- 6047 Jul, Other dorsalgia M54.89 [facility] [id number] [place] [address] 69641- 9452 Jul, Diabetes E11.9 and Gastroparesis K31.84 [facility] [id number] [place] [address] 80343- 3450 Jun, [facility] [id number] [place] [address] 76785- 6958 24 Jun, 2016 Back pain M54.9 [facility] [id number] [place] [address] 50692- 1891 14 Jun, 2016 Neuropathy G62.9 [facility] [id number] [place] [address] [id number] 02 Jun, 2016 Encounter for dental examination Z01.20 [facility] [address] 64070- 0830 01 Jun, 2016 Gastroparesis 536.3 and Anorexia R63.0 [facility] [address] 38270- 4872 May, Other dorsalgia M54.89 [facility] [address] 34066- 2234 May, Periumbilical abdominal pain R10.33 ; Weight loss R63.4 and Gastroparesis K31.84 [facility] [address] 35945- 8240 May, Back pain M54.9 [facility] [id number] [place] [address] 44921- 6528 Apr, Anorexia R63.0 [facility] [address] 28612- 3721 Apr, Anorexia R63.0 [facility] [id number] [place] [address] 65600- 4159 Apr, Back pain M54.9 [facility] [address] 59160- 2548 15 Apr, 2016 Back pain M54.9 [facility] [id number] [place] [address] 38074- 4286 Apr, [facility] [address] 70629- 0661 Apr, Bronchitis J40 and Neuropathy G62.9 [place] [address] 34231- 5776 Apr, Neuropathy G62.9 [facility] [id number] [place] [address] 33600- 0793 Apr, [place] [address] 34837- 4563 Apr, Back pain M54.9 [place] [address] 96597- 9654 Mar, Type 2 diabetes mellitus with diabetic autonomic (poly) neuropathy E11.43 [place] [address] 36415- 0711 Mar, Type 2 diabetes mellitus without complications E11.9 [place] [address] 59801- 3507 Mar, Neuropathy G62.9 [place] [address] 76755- 2188 Mar, [place] [address] 25253- 2940 Mar, Breast cancer screening Z12.39 [place] [address] 27166- 3210 Mar, Other dorsalgia M54.89 [place] [address] 69254- 0930 Feb, [place] [address] 06304- 4142 Jan, Neuropathy G62.9 ; Type 2 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 ; Uncomplicated asthma, unspecified asthma severity J45.909 and Encounter for immunization Z23 [place] [id number] [place] [address] 19775- 2065 Jan, [facility] [address] [place] [address] 72313- 8962 Jan, [facility] [id number] [place] [address] 24232- 7524 Dec, [facility] [id number] [place] [address] 43527- 0346 Dec, [facility] [id number] [place] [address] 83456- 1687 Nov, [facility] [id number] [place] [address] 76461- 8794 Nov, Back pain M54.9 [facility] [id number] [place] [address] 82110- 6336 Nov, Neuropathy G62.9 ; Mixed hyperlipidemia E78.2 ; Type 2 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 and wire spinner 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 Z79.4 [facility] [id number] [place] [address] 24759- 0642 Oct, [facility] [id number] [place] [address] 58267- 2159 Oct, Other dorsalgia M54.89 [facility] [id number] [place] [address] 61815- 5191 September, Primary insomnia F51.01 [facility] [id number] [place] [address] 50798- 8696 September, [facility] [id number] [place] [address] 54745- 6414 Aug, Other dorsalgia M54.89 [facility] [id number] [place] [address] 75359- 3032 Jul, [facility] [id number] [place] [address] 27318- 5697 Jul, Other dorsalgia M54.89 [facility] [id number] [place] [address] 12455- 1351 Jul, Diabetes E11.9 ; Back pain M54.9 ; Neuropathy G62.9 and Gastroparesis K31.84 [facility] [id number] [place] [address] 54508- 8776 Jun, [facility] [id number] [place] [address] 11294- 2904 Jun, Other dorsalgia M54.89 [facility] [address] 35449- 3294 May, [facility] [address] 02478- 9129 May, Radicular leg pain M54.10 and Other dorsalgia M54.89 [facility] [id number] [place] [address] 24777- 5146 Apr, [facility] [id number] [place] [address] 33227- 3300 Mar, [facility] [id number] [place] [address] 98344- 9457 Mar, [facility] [id number] [place] [address] 69948- 3153 Mar, Radicular leg pain M54.10 [facility] [id number] [place] [address] 97846- 8350 Feb, [facility] [id number] [place] [address] 85138- 2540 Feb, [facility] [id number] [place] [address] 09271- 2590 Feb, [facility] [id number] [place] [address] 72576- 8692 Jan, [facility] [id number] [place] [address] 10825- 4349 Jan, IBS (irritable bowel syndrome) 564.1 [facility] [id number] [place] [address] 56323- 4667 Jan, [facility] [id number] [place] [address] 21474- 0342 Jan, [facility] [id number] [place] [address] 42944- 1449 Jan, Diabetes mellitus without mention of complication, type II or unspecified type, not stated as uncontrolled 250.00 ; Gastroparesis 536.3 and Hypoacusis 389.9 [facility] [id number] [place] [address] 38501- 5935 Jan, [facility] [id number] [place] [address] 68417- 9116 Jan, [facility] [id number] [place] [address] 55825- 2864 Dec, [facility] [id number] [place] [address] 58529- 0763 Dec, [facility] [id number] [place] [address] 80225- 3304 Dec, [facility] [id number] [place] [address] [id number]- 5544 Dec, Back pain 724.5 and Gastroparesis 536.3 [facility] [id number] [place] [address] [id number]- [phone] Nov, [facility] [id number] [place] [address] [id number] Nov, Dental examination V72.2 [facility] [id number] [place] [address] [phone]- [phone] Nov, [facility] [id number] [place] [address] 87591- 6978 Nov, [facility] [id number] [place] [address] [phone]- [phone] Nov, Depressive disorder, not elsewhere classified 311 and No condition on [place] II V71.09 [facility] [id number] [place] [address] [phone]- [phone] Nov, Diabetes 250.00 and Symptomatic menopausal or female climacteric states 627.2 [facility] [id number] [place] [address] 86744- 4356 Oct, [facility] [id number] [place] [address] [phone] Oct, Lumbar strain 847.2 [facility] [id number] [place] [address] [id number] Oct, Gastroparesis 536.3 and Unspecified myalgia and myositis 729.1 [facility] [id number] [address] Aug, [facility] [id number] [place] [address] [phone]- [phone] Aug, [facility] [id number] [address] Jul, [facility] [id number] [address] Jul, [facility] [id number] [place] [address] Jul, [facility] [id number] [place] [address] [phone] Jul, [facility] [id number] [address] Jul, [facility] [id number] [place] [address] 18 Jun, 2014 [facility] [address] [id number] [address] Jun, [facility] [id number] [place] [address] Jun, [facility] [address] [id number] [place] [address] May, [facility] [place] [facility] [address] [id number] [place] [address] May, [facility] [address] [id number] [place] [address] Mar, [facility] [place] [facility] [address] [id number] [place] [address] Mar, [facility] [address] [id number] [place] [address] Mar, [facility] [place] [facility] [address] [id number] [place] [address] Mar, [facility] [place] [facility] [address] [id number] [place] [address] Mar, [facility] [address] [id number] [place] [address] Mar, [facility] [place] [facility] [address] [id number] [place] [address] Feb, [facility] [address] [id number] [place] [address] Feb, [facility] [place] [facility] [address] [id number] [place] [address] Nov, [facility] [place] [facility] [address] [id number] [place] [address] Nov, [facility] [place] [facility] [address] [id number] [place] [address] Nov, [facility] [place] [facility] [address] [id number] [place] [address] Oct, [facility] [place] [facility] [address] [id number] [place] [address] September, [facility] [address] [id number] [place] [address] Aug, [facility] [place] [facility] [address] [id number] [place] [address] Aug, [facility] [address] [id number] [place] [address] Aug, [facility] [place] [facility] [address] [id number] [place] [address] Aug, [facility] [address] [id number] [place] [address] Aug, [facility] [place] [facility] [address] [id number] [place] [address] Aug, [facility] [address] [id number] [place] [address] Aug, [facility] [address] [id number] [place] [address] Aug, [facility] [place] [facility] [address] [id number] [place] [address] Jul, [facility] [place] [facility] [address] [id number] [place] [address] Jul, [facility] [place] [facility] [address] [id number] [place] [address] Jun, [facility] [place] [facility] [address] [id number], [place] [address] Jun, [facility] [place] [facility] [address] [id number] [place] [address] Jun, [facility] [place] [facility] [address] [id number] [place] [address] Jun, [facility] [place] [facility] [address] [id number] [place] [address] Jun, [facility] [place] [facility] [id number], [place] [address] Jun, 2012 [facility] [address] [id number], [place] [address] Jun, [facility] [id number], [place] [address] May, [facility] [address] [id number], [place] [address] May, [facility] [id number], [place] [address] May, [facility] [id number], [place] [address] May, [facility] [id number], [place] [address] Mar, [facility] [id number] [address] Mar, [facility] [address] [facility] [id number], [place] [address] Jan, IMMUNIZATIONS No Known Immunizations SOCIAL HISTORY Never Assessed REASON FOR VISIT PLAN OF CARE VITAL SIGNS MEDICATIONS Medication [...]
--- OUTSIDE RECORDS SUMMARY | 2018-01-27 20:06 | XMS REPORT ---
Author Author HORACE HIGGINS [facility] Address [address] [place] [address] Care Team Providers Care Learning Disabled Teacher Name Role Phone HORACE HIGGINS Unavailable PROBLEMS Type Condition ICD9-CM Code PLM30-BI Code Onset Dates Condition Status SNOMED Code Problem History of colon polyps Z86.010 Active 625000908 Problem Asthma exacerbation J45.901 Active 045888867 Problem Primary insomnia F51.01 Active 4770770 Problem Tobacco dependency F17.200 Active 90355101 Problem Low TSH level R94.6 Active 172060877 Problem Annual physical exam Z00.00 Active 401674976 Problem Diabetic polyneuropathy associated with type 2 diabetes mellitus E11.42 Active 90232924 Problem Reactive depression F32.9 Active 16203048 Problem Migraine without aura and without status migrainosus, not intractable G43.009 Active 720313312 Problem PTSD (post-traumatic stress disorder) F43.10 Active 53429026 Problem Diabetes E11.9 Active 18550025 Problem Gastroparesis K31.84 Active 751631569 Problem Back pain M54.9 Active 273802616 Problem Neuropathy G62.9 Active 782090112 Problem Type 2 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 Active 91413409 Problem Uncomplicated asthma, unspecified asthma severity J45.909 Active 595231702 Problem 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 Active 100205822 Problem Anorexia R63.0 Active 48302409 Problem Mixed hyperlipidemia E78.2 Active 768461090 Problem Weight loss R63.4 Active 726835380 ALLERGIES No Information ENCOUNTERS Encounter Location Date Diagnosis [facility] [id number] [address] Jan, [facility] [id number], [place] [address] Dec, [facility] [address] [id number] Nov, [facility] [id number] [place] [address] 93461- 2006 Nov, [facility] [id number] [place] [address] 10067 2546 Nov, LLQ pain R10.32 ; Low TSH level R94.6 and Gastroparesis K31.84 [facility] [id number] [place] [address] 31526- 0118 Nov, Anorexia R63.0 [facility] [id number] [place] [address] 62781- 0912 Nov, Asthma exacerbation J45.901 [facility] [id number] [place] [address] 98638- 7944 Oct, PTSD (post-traumatic stress disorder) F43.10 [facility] [id number] [place] [address] 88312- 8087 Oct, [facility] [id number] [place] [address] 05815- 0709 Oct, PTSD (post-traumatic stress disorder) F43.10 and Tobacco dependency F17.200 [facility] [facility] [id number] [place] [address] 59055- 1534 18 Oct, 2017 [facility] [id number] [place] [address] 16602 2540 14 Oct, 2017 Other dorsalgia M54.89 [facility] [id number] [place] [address] 27199- 5089 04 Oct, 2017 Anorexia R63.0 [facility] [id number] [place] [address] 49354- 1446 September, PTSD (post-traumatic stress disorder) F43.10 [facility] [id number] [place] [address] 57493- 4586 September, Low TSH level R94.6 [facility] [address] 92360- 2407 September, Other dorsalgia M54.89 [facility] [address] 357683- 6951 September, Annual physical exam Z00.00 and Migraine without aura and without status migrainosus, not intractable G43.009 [facility] [address] 357683- 0884 September, Abnormal TSH R94.6 and Dysfunction of left eustachian tube H69.82 [place] [address] 636 Aug, [facility] [address] 084 Aug, [address] [facility] [address] [id number] Aug, Dental examination Z01.20 and Xerostomia K11.7 [place] [address] 670530- 0403 Aug, Neuropathy G62.9 [place] [address] 24183- 7344 Aug, [facility] [address] 58018- 4445 Aug, Other dorsalgia M54.89 [place] [address] 22816- 1317 Aug, Type 2 diabetes mellitus with diabetic autonomic (poly) neuropathy E11.43 ; Diabetic polyneuropathy associated with type 2 diabetes mellitus E11.42 ; Bronchitis J40 ; Gastroparesis K31.84 and Reactive depression F32.9 [place] [address] 51182- 6431 Aug, PTSD (post-traumatic stress disorder) F43.10 [place] [id number] [place] [address] 86181 2546 Aug, Other dorsalgia M54.89 and Anorexia R63.0 [facility] [address] 84102 2546 Jul, [facility] [address] 87660 2546 Jul, Other dorsalgia M54.89 [facility] [address] 06241 2546 Jul, [facility] [address] 59922 2546 Jul, [facility] [address] 86480 2546 Jul, PTSD (post-traumatic stress disorder) F43.10 [facility] [address] 70267 2546 Jul, [facility] [id number] [place] [address] 34385 2546 Jul, [facility] [id number] [place] [address] 01689 2546 Jul, [facility] [id number] [place] [address] 96353 2546 Jul, Anorexia R63.0 [facility] [id number] [place] [address] 74468 2546 Jun, [facility] [id number] [place] [address] 49335 2546 Jun, Vaginal discharge N89.8 ; Visit for gynecologic examination Z01.419 and Pelvic pressure in female R10.2 [facility] [id number] [place] [address] 85042 2546 Jun, [facility] [id number] [place] [address] 22610- 8045 Jun, Other dorsalgia M54.89 [facility] [id number] [place] [address] 47285- 2097 Jun, [facility] [address] 96678- 4415 Jun, [facility] [id number] [place] [address] 23953- 2187 Jun, [facility] [address] 13655- 0996 May, Back pain M54.9 [facility] [address] 97308- 9822 May, Anorexia R63.0 [facility] [address] 43494- 0291 May, Other dorsalgia M54.89 [facility] [address] 31422- 4023 May, [facility] [id number] [place] [address] 26087- 7164 May, Bronchitis J40 [facility] [address] 25817- 5338 May, Type 2 diabetes mellitus with diabetic autonomic (poly) neuropathy E11.43 ; 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 ; Back pain M54.9 and Neuropathy G62.9 [facility] [id number] [place] [address] 67485- 9609 May, Left breast mass N63.20 [facility] [address] 83526- 4909 May, [facility] [id number] [place] [address] 47549- 7578 Apr, Other dorsalgia M54.89 [facility] [address] 04878- 7010 Apr, Anorexia R63.0 [facility] [id number] [place] [address] 83955- 6753 Apr, Anorexia R63.0 [facility] [address] 02764- 6415 Apr, Mass of left breast N63.20 [facility] [address] 15711- 9503 Apr, [facility] [address] 41056- 2560 Apr, [facility] [address] 33721- 0382 Apr, Diarrhea of presumed infectious origin A09 [facility] [address] 11376- 0825 Apr, Encounter for immunization Z23 [facility] [address] 58605- 6219 Apr, [facility] [address] 78819- 5949 Mar, Other dorsalgia M54.89 [facility] [address] 65236- 0336 Mar, [facility] [id number] [place] [address] 71259- 3010 Mar, [facility] [address] 08691- 3365 Mar, Anorexia R63.0 [facility] [address] 52150- 6277 Mar, [facility] [address] 64975- 6745 Mar, Other dorsalgia M54.89 [facility] [address] 02158- 5740 Mar, [facility] [id number] [place] [address] 82523- 0045 Mar, Encounter for immunization Z23 [facility] [address] 32407- 8482 Feb, Anorexia R63.0 [facility] [address] 64615- 4716 Feb, Diabetes E11.9 [facility] [address] 13113- 3806 Feb, Back pain M54.9 and Diabetes E11.9 [facility] [address] 95455- 1390 Feb, Diabetes E11.9 [facility] [address] 15443- 7751 Feb, Neuropathy G62.9 [facility] [address] 07141- 4780 Feb, Encounter for immunization Z23 ; Epigastric pain R10.13 ; Weight loss, abnormal R63.4 and Neuropathy G62.9 [facility] [address] [id number] Feb, [facility] [id number] [place] [address] 13171- 5686 Feb, [facility] [id number] [place] [address] 18121- 3124 Feb, Intractable vomiting with nausea, unspecified vomiting type R11.2 [facility] [address] 96742 -4647 Feb, Chronic nausea R11.0 [facility] [id number] [place] [address] 27653- 2851 Feb, Other dorsalgia M54.89 [facility] [address] 64267- 3496 Jan, [facility] [id number] [place] [address] 01022 2546 Jan, [facility] [id number] [place] [address] 18540 2546 Jan, [facility] [id number] [place] [address] 89598 2546 Jan, [facility] [id number] [place] [address] 43397 2548 Jan, Asthma exacerbation J45.901 ; Bronchitis J40 and Neuropathy G62.9 [facility] [address] 34928- 9511 Jan, Anorexia R63.0 [facility] [id number] [place] [address] 07027- 3378 Jan, Other dorsalgia M54.89 [facility] [id number] [place] [address] 96093- 0573 Dec, [facility] [id number] [place] [address] 92453- 2633 Dec, [facility] [id number] [place] [address] 65211- 8178 Dec, Anorexia R63.0 [facility] [id number] [place] [address] 18539- 3033 Dec, Primary insomnia F51.01 [facility] [id number] [place] [address] 77013 2541 Dec, Other dorsalgia M54.89 [facility] [id number] [place] [address] 48680 2546 Dec, [facility] [id number] [place] [address] 29260 2546 Nov, [facility] [id number] [place] [address] 35199- 3015 Nov, [facility] [id number] [place] [address] 89754- 6212 Nov, [facility] [id number] [place] [address] 44774- 9012 Nov, History of colon polyps Z86.010 [facility] [id number] [place] [address] 49887- 0623 Nov, Weight loss R63.4 ; Nausea and vomiting, intractability of vomiting not specified, unspecified vomiting type R11.2 and Abnormal LFTs R79.89 [facility] [id number] [place] [address] 62976- 1885 Nov, [facility] [id number] [place] [address] 56692- 8535 Nov, Neuropathy G62.9 and Pain in right knee M25.561 [place] [facility] [address] 22056- 9528 Nov, Back pain M54.9 [facility] [id number] [place] [address] 00719- 3851 Nov, [place] [id number] [place] [address] 13114- 2994 Nov, Bronchitis J40 [facility] [id number] [place] [address] 84512- 2745 Nov, Weight loss R63.4 [facility] [id number] [place] [address] 60456- 2223 Oct, Back pain M54.9 [facility] [id number] [place] [address] 47554- 3064 Oct, [facility] [id number] [place] [address] 94526- 6810 14 Oct, 2016 Back pain M54.9 [facility] [id number] [place] [address] 11460- 2587 Oct, Type 2 diabetes mellitus without complications E11.9 and Bronchitis J40 [facility] [id number] [place] [address] 45347- 8163 Oct, [facility] [id number] [place] [address] 82413- 1361 Oct, [facility] [id number] [place] [address] 24099- 5151 September, Gastroparesis K31.84 ; Type 2 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 and Neuropathy G62.9 [place] [id number] [place] [address] 60972- 6851 September, Other dorsalgia M54.89 [facility] [facility] [id number] [place] [address] 18826- 0025 September, [place] [id number] [place] [address] 14228- 7768 September, [facility] [id number] [place] [address] 30073- 4838 Aug, Gastroparesis K31.84 and Radicular leg pain M54.10 [place] [facility] [id number] [place] [address] 78996- 7630 Aug, Anorexia R63.0 [facility] [id number] [place] [address] 65632- 6046 Aug, Bronchitis J40 [facility] [id number] [place] [address] 42831- 7180 Aug, Back pain M54.9 [place] [id number] [place] [address] 09317- 8545 Aug, Routine gynecological examination Z01.419 ; Routine screening for STI (sexually transmitted infection) Z11.3 and Yeast infection of the vagina B37.3 [facility] [id number] [place] [address] 88028- 8031 Jul, Other dorsalgia M54.89 [facility] [id number] [place] [address] 57981- 8466 Jul, Diabetes E11.9 and Gastroparesis K31.84 [facility] [id number] [place] [address] 14291- 1845 Jun, [facility] [id number] [place] [address] 73696- 8938 Jun, Back pain M54.9 [facility] [address] 14271- 2520 14 Jun, [address] [facility] [address] [id number] 02 Jun, 2016 Encounter for dental examination Z01.20 [facility] [address] 15461- 5000 Jun, Gastroparesis 536.3 and Anorexia R63.0 [facility] [id number] [place] [address] 58012- 5622 May, Other dorsalgia M54.89 [facility] [id number] [place] [address] 66177- 1652 May, Periumbilical abdominal pain R10.33 ; Weight loss R63.4 and Gastroparesis K31.84 [facility] [id number] [place] [address] 41466- 9570 May, Back pain M54.9 [facility] [id number] [place] [address] 03759- 3655 Apr, Anorexia R63.0 [facility] [address] 04538- 1056 Apr, Anorexia R63.0 [facility] [id number] [place] [address] 89736- 5698 Apr, Back pain M54.9 [facility] [address] [address]- 7017 Apr, Back pain M54.9 [facility] [address] 93161- 8496 Apr, [facility] [id number] [place] [address] 21455 2546 Apr, Bronchitis J40 and Neuropathy G62.9 [facility] [address] 82928 2546 Apr, Neuropathy G62.9 [facility] [id number] [place] [address] 40089- 2076 Apr, [facility] [id number] [place] [address] 87426- 5318 Apr, Back pain M54.9 [facility] [id number] [place] [address] 02505- 7116 Mar, Type 2 diabetes mellitus with diabetic autonomic (poly) neuropathy E11.43 [facility] [id number] [place] [address] 89642- 3799 Mar, Type 2 diabetes mellitus without complications E11.9 [facility] [id number] [place] [address] 04317- 6170 Mar, Neuropathy G62.9 [facility] [id number] [place] [address] 16180- 7132 Mar, [facility] [id number] [place] [address] 20813- 4897 Mar, Breast cancer screening Z12.39 [facility] [id number] [place] [address] 35322- 9369 Mar, Other dorsalgia M54.89 [facility] [id number] [place] [address] 69269- 2976 Feb, [facility] [id number] [place] [address] 43779- 5743 Jan, Neuropathy G62.9 ; Type 2 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 ; Uncomplicated asthma, unspecified asthma severity J45.909 and Encounter for immunization Z23 [facility] [id number] [place] [address] 35566- 5619 09 Jan, 2016 [facility] [id number] [place] [address] 20698- 6771 Jan, [facility] [id number] [place] [address] 91677- 3492 Dec, [facility] [id number] [place] [address] 55022- 7334 Dec, [facility] [id number] [place] [address] 31788- 4178 Nov, [place] [facility] [address] 35279- 1027 Nov, Back pain M54.9 [facility] [id number] [place] [address] 76688- 8593 Nov, Neuropathy G62.9 ; Mixed hyperlipidemia E78.2 ; Type 2 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 and 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 [facility] [id number] [place] [address] 86770- 4164 Oct, [facility] [id number] [place] [address] 10552- 7953 Oct, Other dorsalgia M54.89 [facility] [id number] [place] [address] 84340- 3399 September, Primary insomnia F51.01 [facility] [id number] [place] [address] 75223- 8125 September, [facility] [id number] [place] [address] 03418- 8835 Aug, Other dorsalgia M54.89 [facility] [id number] [place] [address] 92471- 0471 Jul, [facility] [address] 29699- 7820 Jul, Other dorsalgia M54.89 [facility] [id number] [place] [address] 20776- 4797 Jul, Diabetes E11.9 ; Back pain M54.9 ; Neuropathy G62.9 and Gastroparesis K31.84 [facility] [id number] [place] [address] 29999- 1983 Jun, [facility] [address] 96071- 3665 Jun, Other dorsalgia M54.89 [facility] [id number] [place] [address] 96167- 6932 May, [facility] [id number] [place] [address] 89337- 9886 May, Radicular leg pain M54.10 and Other dorsalgia M54.89 [facility] [id number] [place] [address] 16087- 5821 Apr, [facility] [id number] [place] [address] 35337- 4410 Mar, [facility] [id number] [place] [address] 68307- 8158 Mar, [facility] [id number] [place] [address] 01541- 2543 Mar, Radicular leg pain M54.10 [facility] [id number] [place] [address] 76887- 6416 Feb, [facility] [id number] [place] [address] 13245- 2543 Feb, [facility] [id number] [place] [address] 16540- 6239 Feb, [facility] [id number] [place] [address] 27485- 5878 Jan, [facility] [id number] [place] [address] 97103- 0926 Jan, IBS (irritable bowel syndrome) 564.1 [facility] [id number] [place] [address] 70279- 6952 Jan, [facility] [id number] [place] [address] 58546- 6144 Jan, [facility] [id number] [place] [address] 74116- 8720 Jan, Diabetes mellitus without mention of complication, type II or unspecified type, not stated as uncontrolled 250.00 ; Gastroparesis 536.3 and Hypoacusis 389.9 [facility] [id number] [place] [address] 54763- 6469 Jan, [facility] [id number] [place] [address] 69425- 1275 Jan, [facility] [id number] [place] [address] 60911- 0548 Dec, [facility] [id number] [place] [address] 44839- 6885 Dec, [facility] [id number] [place] [address] 68880- 3146 Dec, [facility] [id number] [place] [address] 06363- 7989 Dec, Back pain 724.5 and Gastroparesis 536.3 [facility] [id number] [place] [address] 25577- 9207 Nov, [facility] [id number] [id number] Nov, Dental examination V72.2 [facility] [id number] [id number]- 7150 Nov, [facility] [id number] [address] 4[address] Nov, [facility] [id number] [address]- [address]234 Nov, Depressive disorder, not elsewhere classified 311 and No condition on [place] II V71.09 [facility] [address] [id number] [address] Nov, Diabetes 250.00 and Symptomatic menopausal or female climacteric states 627.2 [facility] [id number] [place] [address] Oct, [facility] [id number] [address] Oct, Lumbar strain 847.2 [facility] [id number] [address] Oct, Gastroparesis 536.3 and Unspecified myalgia and myositis 729.1 [facility] [id number] [address] Aug, [facility] [id number], [place] [address] Aug, [facility] [id number], [place] [address] Jul, [facility] [id number] [address] Jul, [facility] [id number] Jul, [facility] [id number] [address] [address] Jul, [facility] [id number] [address] [address] Jul, [facility] [place] [facility] [address] [id number] [place] [address] Jun, [facility] [place] [facility] [address] [id number] [place] [address] Jun, [facility] [place] [facility] [address] [id number] [place] [address] Jun, [facility] [place] [facility] [address] [id number] [place] [address] May, [facility] [place] [facility] [address] [id number] [place] [address] May, [facility] [place] [facility] [address] [id number] [place] [address] Mar, [facility] [place] [facility] [address] [id number] [place] [address] Mar, [facility] [place] [facility] [address] [id number] [place] [address] Mar, [facility] [place] [facility] [address] [id number] [place] [address]49 Mar, [facility] [place] [facility] [address] [id number] [place] [address] Mar, [facility] [place] [facility] [address] [id number] [place] [address] Mar, [facility] [place] [facility] [address] [id number] [address] Feb, [facility] [place] [facility] [address] [id number] [place] [address] Feb, [facility] [place] [facility] [address] [id number] [place] [address] Nov, [facility] [place] [facility] [address] [id number], [place] [address] Nov, [facility] [place] [facility] [address] [id number], [place] [address] Nov, [facility] [address] [id number] [place] [address] Oct, [facility] [address] [id number] [place] [address] September, [facility] [address] [id number] [place] [address] Aug, [facility] [address] [id number] [place] [address] 15 Aug, 2012 [facility] [address] [id number] [place] [address] Aug, [facility] [address] [id number] [place] [address] Aug, [facility] [address] [id number] [place] [address] Aug, [facility] [address] [id number] [place] [address] Aug, [facility] [address] [id number] [place] [address] Aug, [facility] [address] [id number] [place] [address] Aug, [facility] [address] [id number], [place] [address] Jul, [facility] [place] [facility] [address] [id number], [place] [address] Jul, [facility] [place] [facility] [address] [id number] [place] [address]- [address]9 Jun, [facility] [place] [facility] [address] [id number] [place] [address]- [address] Jun, [facility] [address] [id number], [place] [address] Jun, [facility] [address] [id number], [place] [address] 08 Jun, 2012 [facility] [id number] Jun, [facility] [id number] [address] [address] Jun, [facility] [id number], [place] [address] Jun, [facility] [id number] May, [facility] [id number], [place] [address] May, [facility] [id number], [place] [address] May, [facility] [id number], [place] [address] May, [facility] [id number], [place] [address] Mar, [facility] [address] [id number], [place] [address] Mar, [facility] [address] [id number], [place] [address] Jan, IMMUNIZATIONS No Known Immunizations SOCIAL HISTORY [...] HOURS 5 Active RESULTS No Results PROCEDURES No Known [...] vomitting-[facility] 03/05/17 Hospitalization History hospital stay at [facility] for stomach issues 2016
--- OUTSIDE RECORDS SUMMARY | 2018-01-27 20:06 | XMS REPORT ---
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 Name Role Phone HORACE HIGGINS Unavailable PROBLEMS Type Condition ICD9-CM Code BIN17-XG Code Onset Dates Condition Status SNOMED Code Problem History of colon polyps Z86.010 Active 510770962 Problem Asthma exacerbation J45.901 Active 804577265 Problem Primary insomnia F51.01 Active 7948419 Problem Tobacco dependency F17.200 Active 34864993 Problem Low TSH level R94.6 Active 871994376 Problem Annual physical exam Z00.00 Active 560827868 Problem Diabetic polyneuropathy associated with type 2 diabetes mellitus E11.42 Active 85349779 Problem Reactive depression F32.9 Active 26067490 Problem Migraine without aura and without status migrainosus, not intractable G43.009 Active 217573179 Problem PTSD (post-traumatic stress disorder) F43.10 Active 85314209 Problem Diabetes E11.9 Active 61270795 Problem Gastroparesis K31.84 Active 438849750 Problem Back pain M54.9 Active 079635419 Problem Neuropathy G62.9 Active 221175109 Problem Type 2 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 Active 23314134 Problem Uncomplicated asthma, unspecified asthma severity J45.909 Active 863233041 Problem assisted 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 Z79.4 Active 501772385 Problem Anorexia R63.0 Active 34226515 Problem Mixed hyperlipidemia E78.2 Active 509379594 Problem Weight loss R63.4 Active 849614094 ALLERGIES No Information ENCOUNTERS Encounter Location Date Diagnosis [facility] [id number] [address] Jan, [facility] [id number] [address] Dec, [facility] [id number] [id number] Nov, [facility] [id number] [place] [address] 29662- 1612 Nov, Other dorsalgia M54.89 [facility] [place] [id number] [place] [address] 29923- 3036 Nov, [facility] [id number] [place] [address] 55732- 7971 Nov, LLQ pain R10.32 ; Low TSH level R94.6 and Gastroparesis K31.84 [facility] [id number] [place] [address] 96148- 9779 Nov, Anorexia R63.0 [facility] [id number] [place] [address] 05385- 6274 Nov, Asthma exacerbation J45.901 [facility] [id number] [place] [address] 68534- 6758 Oct, PTSD (post-traumatic stress disorder) F43.10 [facility] [id number] [place] [address] 20833- 9174 Oct, [facility] [id number] [place] [address] 36457- 8912 Oct, PTSD (post-traumatic stress disorder) F43.10 and Tobacco dependency F17.200 [facility] [id number] [place] [address] 07116- 8942 Oct, [facility] [id number] [place] [address] 15789- 0250 Oct, Other dorsalgia M54.89 [facility] [place] [id number] [place] [address] 57467- 9248 Oct, Anorexia R63.0 [facility] [id number] [place] [address] 52197- 6421 September, PTSD (post-traumatic stress disorder) F43.10 [address] 93641- 6911 September, Low TSH level R94.6 [place] [address] [place] [address] September, Other dorsalgia M54.89 [place] [address] [place] [address] September, Annual physical exam Z00.00 and Migraine without aura and without status migrainosus, not intractable G43.009 [place] [address] 217062- 072 September, Abnormal TSH R94.6 and Dysfunction of left eustachian tube H69.82 [place] [address] 29571 4512 Aug, [place] [address] 21879- 2320 Aug, Anorexia R63.0 [facility] [address] [id number] Aug, Dental examination Z01.20 and Xerostomia K11.7 [place] [address] 64038- 7188 Aug, Neuropathy G62.9 [place] [address] 522259- 4894 Aug, [place] [address] 16688- 9055 Aug, Other dorsalgia M54.89 [place] [address] 217066- 3755 Aug, Type 2 diabetes mellitus with diabetic autonomic (poly) neuropathy E11.43 ; Diabetic polyneuropathy associated with type 2 diabetes mellitus E11.42 ; Bronchitis J40 ; Gastroparesis K31.84 and Reactive depression F32.9 [address] [address] [place] [address] 58[address] Aug, PTSD (post-traumatic stress disorder) F43.10 [facility] [address] 82053 2546 Aug, Other dorsalgia M54.89 and Anorexia R63.0 [facility] [address] 14127 2546 Jul, [facility] [address] 39420 2546 Jul, Other dorsalgia M54.89 [facility] [address] 30143- 6186 Jul, [facility] [id number] [place] [address] 12844- 2236 Jul, [facility] [address] 40133- 7273 Jul, PTSD (post-traumatic stress disorder) F43.10 [facility] [id number] [place] [address] 15495- 8276 Jul, [facility] [address] 13044- 0726 Jul, [facility] [id number] [place] [address] 76895- 7936 Jul, [facility] [id number] [place] [address] 58129 2546 Jul, Anorexia R63.0 [facility] [place] [id number] [place] [address] 13657- 9556 Jun, [facility] [id number] [place] [address] 53017- 7866 Jun, Vaginal discharge N89.8 ; Visit for gynecologic examination Z01.419 and Pelvic pressure in female R10.2 [facility] [place] [id number] [place] [address] 94403- 3154 Jun, [facility] [id number] [place] [address] 88943- 5548 Jun, Other dorsalgia M54.89 [facility] [id number] [place] [address] 65866- 4566 Jun, [facility] [address] 78750- 7826 Jun, [facility] [address] 04760- 2731 Jun, [facility] [address] 93044- 6709 May, Back pain M54.9 [facility] [address] 16982- 3785 May, Anorexia R63.0 [facility] [place] [address] 36611- 0415 May, Other dorsalgia M54.89 [facility] [id number] [place] [address] 37381- 3957 May, [facility] [id number] [place] [address] 90706- 7090 May, Bronchitis J40 [facility] [id number] [place] [address] 48231- 7428 May, Type 2 diabetes mellitus with diabetic autonomic (poly) neuropathy E11.43 ; 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 ; Back pain M54.9 and Neuropathy G62.9 [facility] [id number] [place] [address] 48868- 3031 May, Left breast mass N63.20 [facility] [place] [id number] [place] [address] 08483- 2819 May, [facility] [id number] [place] [address] 40603- 4870 Apr, Other dorsalgia M54.89 [facility] [id number] [place] [address] 75892 2546 Apr, Anorexia R63.0 [facility] [place] [address] 59471- 6946 Apr, Anorexia R63.0 [facility] [address] 60514- 0191 Apr, Mass of left breast N63.20 [facility] [place] [address] 62113 2549 Apr, [facility] [address] 65792- 9443 Apr, [facility] [place] [address] 89476- 5004 Apr, Diarrhea of presumed infectious origin A09 [facility] [address] 16079- 5011 Apr, Encounter for immunization Z23 [facility] [address] 32392- 6597 Apr, [facility] [id number] [place] [address] 00983- 0993 Mar, Other dorsalgia M54.89 [facility] [address] 07167 2546 Mar, [facility] [id number] [place] [address] 10587 2546 Mar, [facility] [address] 65741- 7836 Mar, Anorexia R63.0 [facility] [place] [id number] [place] [address] 82102- 2546 Mar, [facility] [address] 77747- 0267 Mar, Other dorsalgia M54.89 [facility] [id number] [place] [address] 22105- 1699 Mar, [facility] [place] [address] 70917- 8909 Mar, Encounter for immunization Z23 [facility] [address] 70228- 1225 Feb, Anorexia R63.0 [facility] [address] 40057- 7292 Feb, Diabetes E11.9 [facility] [address] 64697- 8543 Feb, Back pain M54.9 and Diabetes E11.9 [facility] [address] 30365- 7534 Feb, Diabetes E11.9 [facility] [address] 28666- 6876 Feb, Neuropathy G62.9 [facility] [address] 92755- 5158 Feb, Encounter for immunization Z23 ; Epigastric pain R10.13 ; Weight loss, abnormal R63.4 and Neuropathy G62.9 [facility] [place] [facility] [id number] [place] [address] [id number] Feb, [facility] [id number] [place] [address] 10534- 9270 Feb, [facility] [id number] [place] [address] 89237- 6299 Feb, Intractable vomiting with nausea, unspecified vomiting type R11.[address] [facility] [id number] [place] [address] 62893 -8289 Feb, Chronic nausea R11.0 [facility] [address] 79552- 7341 Feb, Other dorsalgia M54.89 [facility] [id number] [place] [address] 83084 2546 Jan, [facility] [id number] [place] [address] 82811 2546 Jan, [facility] [id number] [place] [address] 42721 2546 Jan, [facility] [id number] [place] [address] 69697- 2546 Jan, [facility] [id number] [place] [address] 59959 2546 Jan, Asthma exacerbation J45.901 ; Bronchitis J40 and Neuropathy G62.9 [facility] [id number] [place] [address] 53419 2546 Jan, Anorexia R63.0 [facility] [address] 17328 254 Jan, Other dorsalgia M54.89 [facility] [id number] [place] [address] 48554- 6536 Dec, [facility] [id number] [place] [address] 42344- 8214 Dec, [facility] [id number] [place] [address] 82540- 7367 Dec, Anorexia R63.0 [facility] [id number] [place] [address] 18808 2546 Dec, Primary insomnia F51.01 [facility] [id number] [place] [address] 12262 2546 Dec, Other dorsalgia M54.89 [facility] [id number] [place] [address] 89243 2546 Dec, [facility] [id number] [place] [address] 07977- 2461 Nov, [facility] [id number] [place] [address] 57286- 9030 Nov, [facility] [id number] [place] [address] 19518- 2200 Nov, [facility] [place] [id number] [place] [address] 77310- 2575 Nov, History of colon polyps Z86.010 [facility] [id number] [place] [address] 58052- 8424 Nov, Weight loss R63.4 ; Nausea and vomiting, intractability of vomiting not specified, unspecified vomiting type R11.2 and Abnormal LFTs R79.89 [facility] [id number] [place] [address] 65902- 6498 Nov, [facility] [address] 42586- 9325 Nov, Neuropathy G62.9 and Pain in right knee M25.561 [facility] [id number] [place] [address] 78246- 1247 Nov, Back pain M54.9 [facility] [id number] [place] [address] 95751- 3313 Nov, [facility] [id number] [place] [address] 34769- 5209 Nov, Bronchitis J40 [facility] [id number] [place] [address] 42005- 4616 Nov, Weight loss R63.4 [facility] [id number] [place] [address] 80192- 7016 Oct, Back pain M54.9 [facility] [id number] [place] [address] 31059- 4114 Oct, [facility] [id number] [place] [address] 64017- 8696 14 Oct, 2016 Back pain M54.9 [facility] [id number] [place] [address] 46928- 0209 Oct, Type 2 diabetes mellitus without complications E11.9 and Bronchitis J40 [facility] [id number] [place] [address] 23284- 6396 Oct, [facility] [id number] [place] [address] 69733- 4654 Oct, [facility] [id number] [place] [address] 93873- 3245 September, Gastroparesis K31.84 ; Type 2 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 and Neuropathy G62.9 [place] [id number] [place] [address] 52288- 1234 September, Other dorsalgia M54.89 [place] [id number] [place] [address] 77082- 0356 September, [facility] [id number] [place] [address] 42793- 3399 September, [place] [id number] [place] [address] 40959- 0736 Aug, Gastroparesis K31.84 and Radicular leg pain M54.10 [place] [id number] [place] [address] 77428- 8042 Aug, Anorexia R63.0 [facility] [id number] [place] [address] 21163- 9371 Aug, Bronchitis J40 [facility] [id number] [place] [address] 63089- 0867 Aug, Back pain M54.9 [facility] [id number] [place] [address] 20903- 2348 Aug, Routine gynecological examination Z01.419 ; Routine screening for STI (sexually transmitted infection) Z11.3 and Yeast infection of the vagina B37.3 [facility] [id number] [place] [address] 22395- 0341 Jul, Other dorsalgia M54.89 [facility] [place] [address] 59139- 2745 Jul, Diabetes E11.9 and Gastroparesis K31.84 [facility] [address] 79951- 1188 Jun, [facility] [address] 68078- 9371 Jun, Back pain M54.9 [facility] [address] 84090- 3544 14 Jun, 2016 Neuropathy G62.9 [facility] [address] [id number] Jun, Encounter for dental examination Z01.20 [facility] [address] 98976- 8217 Jun, Gastroparesis 536.3 and Anorexia R63.0 [facility] [address] 21672- 7334 May, Other dorsalgia M54.89 [facility] [id number] [place] [address] 66166- 9726 May, Periumbilical abdominal pain R10.33 ; Weight loss R63.4 and Gastroparesis K31.84 [facility] [id number] [place] [address] 22162- 1220 May, Back pain M54.9 [facility] [address] 65726- 8752 Apr, Anorexia R63.0 [facility] [id number] [place] [address] 01098- 9459 Apr, Anorexia R63.0 [facility] [address] [place] [address] 54783- 4197 16 Apr, 2016 Back pain M54.9 [facility] [address] 45561- 8013 Apr, Back pain M54.9 [facility] [id number] [place] [address] 57546- 7379 Apr, [facility] [place] [address] [address]- [address]693 Apr, Bronchitis J40 and Neuropathy G62.9 [facility] [place] [id number] [place] [address] 86429- 8070 Apr, Neuropathy G62.9 [facility] [place] [address] [address]- [address]18 Apr, [facility] [place] [address] 6[address]- 8965 Apr, Back pain M54.9 [facility] [place] [id number] [place] [address] 26979- 2256 Mar, Type 2 diabetes mellitus with diabetic autonomic (poly) neuropathy E11.43 [facility] [place] [id number] [place] [address] 49073- 1030 Mar, Type 2 diabetes mellitus without complications E11.9 [facility] [place] [id number] [place] [address] 87939- 3901 Mar, Neuropathy G62.9 [facility] [place] [id number] [place] [address] 16508- 1789 Mar, [facility] [place] [id number] [place] [address] 77666- 7349 Mar, Breast cancer screening Z12.39 [facility] [place] [id number] [place] [address] 63485- 1968 Mar, Other dorsalgia M54.89 [facility] [place] [id number] [place] [address] 59916- 2381 Feb, [facility] [place] [id number] [place] [address] 48020- 2512 30 Jan, 2016 Neuropathy G62.9 ; Type 2 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 ; Uncomplicated asthma, unspecified asthma severity J45.909 and Encounter for immunization Z23 [facility] [place] [id number] [place] [address] 84523- 7813 Jan, [facility] [place] [id number] [place] [address] 04924- 3160 Jan, [facility] [place] [id number] [place] [address] 61415- 0929 Dec, [facility] [place] [id number] [place] [address] 05753- 1738 Dec, [facility] [place] [id number] [place] [address] 06955- 6983 Nov, [facility] [place] [id number] [place] [address] 50730- 6956 Nov, Back pain M54.9 [place] [id number] [place] [address] 63088- 7304 Nov, Neuropathy G62.9 ; Mixed hyperlipidemia E78.2 ; Type 2 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 and assisted 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 Z79.4 [place] [id number] [place] [address] 48459- 5154 Oct, [facility] [place] [id number] [place] [address] 12914- 3530 Oct, Other dorsalgia M54.89 [facility] [place] [facility] [id number] [place] [address] 05171- 3201 September, Primary insomnia F51.01 [facility] [place] [id number] [place] [address] 23757- 2196 September, [place] [id number] [place] [address] 16323- 2617 Aug, Other dorsalgia M54.89 [facility] [place] [address] [address]131- [address]846 Jul, [facility] [place] [id number] [place] [address] 61963- 2912 Jul, Other dorsalgia M54.89 [facility] [place] [address] [address]- 3278 Jul, Diabetes E11.9 ; Back pain M54.9 ; Neuropathy G62.9 and Gastroparesis K31.84 [facility] [place] [address] 94971- 4590 Jun, [facility] [place] [address] 92063- 3568 Jun, Other dorsalgia M54.89 [facility] [place] [address] 44303- 2854 May, [facility] [place] [address] 66038- 2331 May, Radicular leg pain M54.10 and Other dorsalgia M54.89 [facility] [place] [id number] [place] [address] 05546- 4234 Apr, [facility] [place] [id number] [place] [address] 62349- 7550 Mar, [facility] [place] [id number] [place] [address] 17838- 0183 Mar, [facility] [place] [address] 51755- 9475 Mar, Radicular leg pain M54.10 [facility] [place] [id number] [place] [address] 73593- 4690 Feb, [facility] [place] [address] 41715- 8339 Feb, [facility] [place] [id number] [place] [address] 89882- 7481 Feb, [facility] [place] [id number] [place] [address] 282077- 2399 Jan, [facility] [place] [id number] [place] [address] 360601- 1168 Jan, IBS (irritable bowel syndrome) 564.1 [facility] [place] [id number] [place] [address] 45629- 9206 Jan, [facility] [place] [id number] [place] [address] 60286- 7740 Jan, [facility] [place] [id number] [place] [address] 31607- 1042 Jan, Diabetes mellitus without mention of complication, type II or unspecified type, not stated as uncontrolled 250.00 ; Gastroparesis 536.3 and Hypoacusis 389.9 [facility] [place] [id number] [address]- 1742 Jan, [facility] [place] [id number] [place] [address] 74281- 5726 Jan, [facility] [place] [id number] [place] [address] 41975- 1591 Dec, [facility] [place] [id number] [place] [address] 70717- 5826 Dec, [facility] [place] [address] [address]- 5155 Dec, [facility] [place] [id number] [place] [address] 27910- 8253 Dec, Back pain 724.5 and Gastroparesis 536.3 [facility] [place] [id number] [address]- 2972 Nov, [id number] [id number] Nov, Dental examination V72.2 [facility] [place] [address] [address]- 5615 Nov, [facility] [place] [address] [address]- 9487 Nov, [facility] [place] [id number] [place] [address] 89422- 9894 Nov, Depressive disorder, not elsewhere classified 311 and No condition on Donovan II V71.09 [facility] [place] [id number] [place] [address] 59150- 3904 Nov, Diabetes 250.00 and Symptomatic menopausal or female climacteric states 627.2 [facility] [place] [address] [address]- 9248 Oct, [facility] [place] [id number] [place] [address] 44489- 2713 Oct, Lumbar strain 847.2 [facility] [place] [address] [address]- 9944 Oct, Gastroparesis 536.3 and Unspecified myalgia and myositis 729.1 [facility] [place] [address] [address]- 5555 14 Aug, 2014 [facility] [place] [address] [address]- 5105 Aug, [facility] [place] [id number] [address]- 3266 Jul, [facility] [place] [id number] [address]- 5209 Jul, [facility] [place] [id number] [address]- 6366 Jul, [facility] [place] [id number] [address]- 3383 Jul, [facility] [place] [facility] [address] [id number] [place] [address]- 0127 Jul, [facility] [place] [facility] [address] [id number] [place] [address]- 0607 Jun, [facility] [place] [facility] [address] [id number] [place] [address]- 9247 Jun, [facility] [place] [facility] [address] [id number] [place] [address]- 0999 Jun, [facility] [place] [facility] [address] [id number] [place] [address]- 4416 May, [facility] [place] [facility] [address] [id number] [place] [address]- 3097 May, [facility] [place] [facility] [address] [id number] [place] [address]- 2031 Mar, [facility] [place] [facility] [address] [id number] [place] [address]- 3597 Mar, [facility] [place] [facility] [address] [id number] [place] [address]- 3099 Mar, [facility] [place] [facility] [address] [id number] [place] [address]- 1920 Mar, [facility] [place] [facility] [address] [id number] [place] [address]- 9809 Mar, [facility] [place] [facility] [address] [id number] [place] [address]- 0945 Mar, [facility] [place] [facility] [address] [id number] [place] [address]- 2125 Feb, [facility] [place] [facility] [address] [id number] [place] [address]- 2261 Feb, [facility] [place] [facility] [address] [id number] [place] [address]- 0311 Nov, [facility] [place] [facility] [address] [id number] [place] [address]- 1058 11 Nov, 2012 [facility] [address] [id number] [place] [address]- 8954 Nov, [facility] [address] [id number] [place] [address]- 8748 Oct, [facility] [address] [id number] [place] [address]- 6978 September, [facility] [address] [id number] [place] [address]- 1978 Aug, [facility] [address] [id number] [place] [address]- 8780 Aug, [facility] [address] [id number] [place] [address]- 8691 Aug, [facility] [address] [id number] [place] [address]- 6098 Aug, [facility] [address] [id number] [place] [address]- 4491 Aug, [facility] [address] [id number] [place] [address]- 8936 Aug, [facility] [address] [id number] [place] [address]- 3274 Aug, [facility] [address] [id number] [place] [address]- 8066 Aug, [facility] [address] [id number] [place] [address]- 0082 Jul, [facility] [address] [id number] [place] [address]- 4346 Jul, [facility] [address] [id number] [place] [address]- 8648 Jun, [facility] [address] [id number] [place] [address]- 8506 Jun, [facility] [place] [id number] [address]- 2546 Jun, [facility] [place] [id number] [address]- 2253 Jun, [facility] [place] [id number] [address]- 2058 Jun, [facility] [place] [id number] [address]- 5868 Jun, [facility] [place] [id number] [address]- 4484 Jun, [facility] [place] [id number] [address]- 8396 May, [facility] [place] [id number] [address]- 7702 May, [facility] [place] [id number] [address]- 3123 May, [facility] [place] [id number] [address]- 9849 May, [facility] [place] [id number] [address]- 2823 Mar, [facility] [place] [id number] [address]- 7485 Mar, [facility] [place] [id number] [address]- 0653 Jan, IMMUNIZATIONS No Known Immunizations SOCIAL HISTORY [...] vom[facility] 03/05/17 Hospitalization History hospital stay at [facility] for stomach issues 2016
--- OUTSIDE RECORDS SUMMARY | 2018-01-27 20:07 | XMS REPORT ---
Author Author HORACE HIGGINS [facility] Address [address] [place] [address] Care Team Providers Care Saturation Diver Name Role Phone HORACE HIGGINS Unavailable PROBLEMS Type Condition ICD9-CM Code BQY11-TU Code Onset Dates Condition Status SNOMED Code Problem Weight loss R63.4 Active 968084424 Problem Primary insomnia F51.01 Active 2870237 Problem History of colon polyps Z86.010 Active 938103271 Problem Annual physical exam Z00.00 Active 544791201 Problem Migraine without aura and without status migrainosus, not intractable G43.009 Active 086651602 Problem Reactive depression F32.9 Active 12871468 Problem Asthma exacerbation J45.901 Active 232693096 Problem PTSD (post-traumatic stress disorder) F43.10 Active 10332407 Problem Diabetic polyneuropathy associated with type 2 diabetes mellitus E11.42 Active 32477670 Problem Neuropathy G62.9 Active 161336710 Problem Diabetes E11.9 Active 28670695 Problem Low TSH level R94.6 Active 369670273 Problem Back pain M54.9 Active 489823804 Problem Mixed hyperlipidemia E78.2 Active 160555733 Problem Type 2 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 Active 54629220 Problem Gastroparesis K31.84 Active 196644889 Problem Uncomplicated asthma, unspecified asthma severity J45.909 Active 231621290 Problem 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.4 Active 965494757 Problem Anorexia R63.0 Active 82724528 ALLERGIES No Information ENCOUNTERS Encounter Location Date Diagnosis [facility] [address] [address] September, [facility] [id number] [address] September, [facility] [id number] [place] [address] 98768- 5579 September, [place] [address] [id number]- [address] September, Annual physical exam Z00.00 and Migraine without aura and without status migrainosus, not intractable G43.009 [place] [address] [id number]- 810 September, Abnormal TSH R94.6 and Dysfunction of left eustachian tube H69.82 [place] [address] 0[address]79- 6173 Aug, [place] [address] [address] 2090 Aug, Anorexia R63.0 [facility] [address] [id number] Aug, Dental examination Z01.20 and Xerostomia K11.7 [place] [address] 32750- 8227 Aug, Neuropathy G62.9 [place] [address] 16803- 6335 Aug, [place] [address] 15319- 5452 Aug, Other dorsalgia M54.89 [place] [address] 58975- 9574 Aug, Type 2 diabetes mellitus with diabetic autonomic (poly) neuropathy E11.43 ; Diabetic polyneuropathy associated with type 2 diabetes mellitus E11.42 ; Bronchitis J40 ; Gastroparesis K31.84 and Reactive depression F32.9 [place] [address] 48714- 5332 Aug, PTSD (post-traumatic stress disorder) F43.10 [place] [address] 29024- 5685 Aug, Other dorsalgia M54.89 and Anorexia R63.0 [facility] [id number] [place] [address] 16624- 3416 Jul, [facility] [address] 7[address] 2546 Jul, Other dorsalgia M54.89 [facility] [address] 95579- 2716 Jul, [facility] [address] 8[address]35 2547 Jul, [facility] [address] 05024- 3754 Jul, PTSD (post-traumatic stress disorder) F43.10 [facility] [address] 82605- 3152 Jul, [facility] [address] 17582- 8670 Jul, [facility] [address] 18409 2541 Jul, [facility] [address] 06856 2546 Jul, Anorexia R63.0 [facility] [id number] [place] [address] 11258- 2657 Jun, [facility] [id number] [place] [address] 79420- 2545 Jun, Vaginal discharge N89.8 ; Visit for gynecologic examination Z01.419 and Pelvic pressure in female R10.2 [facility] [address] 97257 2546 Jun, [facility] [id number] [place] [address] 73554- 5046 Jun, Other dorsalgia M54.89 [facility] [id number] [place] [address] 68036- 0860 Jun, [facility] [id number] [place] [address] 52707- 7005 Jun, [facility] [id number] [place] [address] 46356- 3781 Jun, [facility] [id number] [place] [address] 47830- 9121 May, Back pain M54.9 [facility] [address] 91408- 0556 May, Anorexia R63.0 [facility] [address] 45789- 2982 May, Other dorsalgia M54.89 [facility] [address] 75678- 9308 May, [facility] [address] 82230- 1057 May, Bronchitis J40 [facility] [id number] [place] [address] 92747- 2896 May, Type 2 diabetes mellitus with diabetic autonomic (poly) neuropathy E11.43 ; longterm 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 Z79.4 ; Back pain M54.9 and Neuropathy G62.9 [facility] [id number] [place] [address] 12846- 5261 May, Left breast mass N63.20 [facility] [id number] [place] [address] 82311- 7126 May, [facility] [address] 84040- 9709 Apr, Other dorsalgia M54.89 [facility] [id number] [place] [address] 33761- 4288 Apr, Anorexia R63.0 [facility] [address] 59633- 2779 Apr, Anorexia R63.0 [facility] [id number] [place] [address] 75354- 3894 Apr, Mass of left breast N63.20 [facility] [id number] [place] [address] 92991- 7200 Apr, [facility] [id number] [place] [address] 02068- 8716 Apr, [facility] [id number] [place] [address] 64772- 1737 Apr, Diarrhea of presumed infectious origin A09 [facility] [id number] [place] [address] 76552- 3277 Apr, Encounter for immunization Z23 [facility] [id number] [place] [address] 31431- 0713 Apr, [facility] [id number] [place] [address] 74255- 6628 Mar, Other dorsalgia M54.89 [facility] [id number] [place] [address] 23557- 4890 Mar, [facility] [id number] [place] [address] 01189- 8135 Mar, [facility] [id number] [place] [address] 80732- 6173 Mar, Anorexia R63.0 [facility] [id number] [place] [address] 20691- 8875 Mar, [facility] [id number] [place] [address] 46674- 9062 Mar, Other dorsalgia M54.89 [facility] [id number] [place] [address] 49887- 2978 Mar, [facility] [id number] [place] [address] 09360- 9747 Mar, Encounter for immunization Z23 [facility] [id number] [place] [address] 49730- 2174 Feb, Anorexia R63.0 [facility] [address] 92276- 0740 Feb, Diabetes E11.9 [facility] [address] 92741- 5586 Feb, Back pain M54.9 and Diabetes E11.9 [facility] [address] 56740- 2098 Feb, Diabetes E11.9 [facility] [address] 35141- 1368 Feb, Neuropathy G62.9 [facility] [address] 78293- 3062 Feb, Encounter for immunization Z23 ; Epigastric pain R10.13 ; Weight loss, abnormal R63.4 and Neuropathy G62.9 [facility] [address] [id number] Feb, [facility] [address] 39806- 7171 Feb, [facility] [address] 44020- 2456 Feb, Intractable vomiting with nausea, unspecified vomiting type R11.2 [facility] [id number] [place] [address] 38931 -0314 Feb, Chronic nausea R11.0 [facility] [address] 46256- 6815 Feb, Other dorsalgia M54.89 [facility] [id number] [place] [address] 74971- 0720 Jan, [facility] [address] 51115- 0730 Jan, [facility] [id number] [place] [address], [place] [address] 2546 Jan, [facility] [id number] [place] [address] 82639 2546 Jan, [facility] [id number] [place] [address] 83538 2546 Jan, Asthma exacerbation J45.901 ; Bronchitis J40 and Neuropathy G62.9 [facility] [id number] [place] [address] 73293 2546 Jan, Anorexia R63.0 [facility] [address] 69344 2546 Jan, Other dorsalgia M54.89 [facility] [id number] [place] [address] 07512- 3236 Dec, [facility] [id number] [place] [address] 16546- 8766 Dec, [facility] [id number] [place] [address] 20488 2546 Dec, Anorexia R63.0 [facility] [id number] [place] [address] 19492- 2536 Dec, Primary insomnia F51.01 [facility] [id number] [place] [address] 71128 2546 Dec, Other dorsalgia M54.89 [facility] [id number] [place] [address] 40413 2546 Dec, [facility] [id number] [place] [address] 84594 2546 Nov, [facility] [id number] [place] [address] 75959 2546 Nov, [facility] [id number] [place] [address] 98523- 2116 Nov, [facility] [id number] [place] [address] 08194- 9308 Nov, History of colon polyps Z86.010 [facility] [id number] [place] [address] 05418- 8859 Nov, Weight loss R63.4 ; Nausea and vomiting, intractability of vomiting not specified, unspecified vomiting type R11.2 and Abnormal LFTs R79.89 [facility] [address] 76652- 7612 Nov, [place] [address] 96107- 5088 Nov, Neuropathy G62.9 and Pain in right knee M25.561 [place] [address] 92605- 7475 Nov, Back pain M54.9 [place] [address] 38388- 9828 Nov, [facility] [id number] [place] [address] 72127- 6611 Nov, Bronchitis J40 [facility] [id number] [place] [address] 19785- 9010 03 Nov, 2016 Weight loss R63.4 [place] [id number] [place] [address] 36271- 2687 Oct, Back pain M54.9 [facility] [id number] [place] [address] 13862- 1813 16 Oct, 2016 [facility] [id number] [place] [address] 91441- 1710 14 Oct, 2016 Back pain M54.9 [facility] [id number] [place] [address] 30093- 3647 13 Oct, 2016 Type 2 diabetes mellitus without complications E11.9 and Bronchitis J40 [facility] [address] [place] [address]- 3310 Oct, [facility] [id number] [place] [address] 30580- 3696 Oct, [facility] [id number] [place] [address] 86926- 4980 September, Gastroparesis K31.84 ; Type 2 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 and Neuropathy G62.9 [place] [id number] [place] [address] 56005- 6522 September, Other dorsalgia M54.89 [place] [id number] [place] [address] 58725- 3837 September, [facility] [id number] [place] [address] 20843- 4082 September, [place] [address] 87916- 4708 Aug, Gastroparesis K31.84 and Radicular leg pain M54.10 [place] [id number] [place] [address] 59009- 0110 Aug, Anorexia R63.0 [place] [id number] [place] [address] 54054- 3579 Aug, Bronchitis J40 [place] [id number] [place] [address] 84703- 7217 Aug, Back pain M54.9 [facility] [id number] [place] [address] 95930- 8289 Aug, Routine gynecological examination Z01.419 ; Routine screening for STI (sexually transmitted infection) Z11.3 and Yeast infection of the vagina B37.3 [facility] [id number] [place] [address] 64809- 4609 Jul, Other dorsalgia M54.89 [facility] [id number] [place] [address] 91044- 1167 Jul, Diabetes E11.9 and Gastroparesis K31.84 [facility] [id number] [place] [address] 49098- 6456 Jun, [facility] [address] 41304- 9448 24 Jun, 2016 Back pain M54.9 [facility] [address] 53789- 6057 14 Jun, 2016 Neuropathy G62.9 [facility] [address] [id number] 02 Jun, 2016 Encounter for dental examination Z01.20 [facility] [address] 70197- 8568 01 Jun, 2016 Gastroparesis 536.3 and Anorexia R63.0 [facility] [address] 06863- 0217 May, Other dorsalgia M54.89 [facility] [address] 33183- 4290 May, Periumbilical abdominal pain R10.33 ; Weight loss R63.4 and Gastroparesis K31.84 [facility] [id number] [place] [address] 44464- 6238 May, Back pain M54.9 [facility] [address] 72983- 5322 Apr, Anorexia R63.0 [facility] [id number] [place] [address] 64099- 0235 Apr, Anorexia R63.0 [facility] [address] 77280- 2704 Apr, Back pain M54.9 [facility] [id number] [place] [address] 42729- 7934 Apr, Back pain M54.9 [facility] [address], [place] [address]- 7096 Apr, [facility] [id number] [place] [address] 04683- 7997 Apr, Bronchitis J40 and Neuropathy G62.9 [facility] [id number] [place] [address] 94970- 1679 Apr, Neuropathy G62.9 [facility] [id number] [place] [address] 61989- 2035 Apr, [facility] [id number] [place] [address] 03204- 4481 Apr, Back pain M54.9 [facility] [id number] [place] [address] 39320- 8776 Mar, Type 2 diabetes mellitus with diabetic autonomic (poly) neuropathy E11.43 [facility] [id number] [place] [address] 99737- 4841 Mar, Type 2 diabetes mellitus without complications E11.9 [facility] [id number] [place] [address] 54383- 9957 Mar, Neuropathy G62.9 [facility] [id number] [place] [address] 09364- 5044 Mar, [facility] [id number] [place] [address] 46555- 6227 Mar, Breast cancer screening Z12.39 [facility] [id number] [place] [address] 54631- 1566 Mar, Other dorsalgia M54.89 [facility] [id number] [place] [address] 60249- 4116 Feb, [facility] [id number] [place] [address] 26941- 1122 Jan, Neuropathy G62.9 ; Type 2 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 ; Uncomplicated asthma, unspecified asthma severity J45.909 and Encounter for immunization Z23 [facility] [id number] [place] [address] 11995- 9081 Jan, [facility] [id number] [place] [address] 89350- 0236 Jan, [facility] [id number] [place] [address] 83568- 9114 Dec, [facility] [address] 50978- 3374 Dec, [facility] [id number] [place] [address] 91382- 4554 Nov, [place] [address] 55849- 9897 Nov, Back pain M54.9 [place] [address] 06093- 8349 Nov, Neuropathy G62.9 ; Mixed hyperlipidemia E78.2 ; Type 2 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 and longterm 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 Z79.4 [place] [id number] [place] [address] 44692- 4406 Oct, [place] [id number] [place] [address] 02900- 3635 Oct, Other dorsalgia M54.89 [place] [id number] [place] [address] 54748- 0838 September, Primary insomnia F51.01 [facility] [id number] [place] [address] 81141- 7966 September, [place] [address] 44416- 9277 Aug, Other dorsalgia M54.89 [place] [id number] [place] [address] 42321- 4421 Jul, [facility] [id number] [place] [address] 70245- 7101 Jul, Other dorsalgia M54.89 [facility] [address] 05373- 0047 Jul, Diabetes E11.9 ; Back pain M54.9 ; Neuropathy G62.9 and Gastroparesis K31.84 [facility] [address] 29807- 6055 Jun, [facility] [address] 26960- 7462 Jun, Other dorsalgia M54.89 [facility] [address] 26662- 4499 May, [facility] [address] 47396- 9826 May, Radicular leg pain M54.10 and Other dorsalgia M54.89 [facility] [id number] [place] [address] 48090- 6152 Apr, [facility] [address] 17366- 1842 Mar, [facility] [id number] [place] [address] 49270- 5890 Mar, [facility] [id number] [place] [address] 95395- 4526 Mar, Radicular leg pain M54.10 [facility] [id number] [place] [address] 90638- 2403 Feb, [facility] [address] 37943- 5081 Feb, [facility] [id number] [place] [address] 87255- 7804 Feb, [facility] [address] 17148- 5447 Jan, [facility] [id number] [place] [address] 37274- 9629 Jan, IBS (irritable bowel syndrome) 564.1 [facility] [id number] [place] [address] 32045- 4831 Jan, [facility] [id number] [place] [address] 73829- 6619 Jan, [facility] [id number] [place] [address] 98384- 1423 Jan, Diabetes mellitus without mention of complication, type II or unspecified type, not stated as uncontrolled 250.00 ; Gastroparesis 536.3 and Hypoacusis 389.9 [facility] [id number] [place] [address] 54330- 3939 Jan, [facility] [id number] [place] [address] 89356- 0114 Jan, [facility] [id number] [place] [address] 33463- 8519 Dec, [facility] [id number] [place] [address] 47803- 5760 Dec, [facility] [id number] [place] [address] 07011- 3478 Dec, [facility] [id number] [place] [address] 60178- 0585 Dec, Back pain 724.5 and Gastroparesis 536.3 [facility] [id number] [place] [address] 28978- 7658 Nov, [facility] [id number] [place] [address] [id number] Nov, Dental examination V72.2 [facility] [id number] [place] [address] 66187- 1552 Nov, [facility] [id number] [address] 15 Nov, 2014 [facility] [id number] [place] [address] 16331- 9180 Nov, Depressive disorder, not elsewhere classified 311 and No condition on Wilson II V71.09 [facility] [id number] [address] Nov, Diabetes 250.00 and Symptomatic menopausal or female climacteric states 627.2 [facility] [id number] [address] Oct, [facility] [id number] [place] [address] 39252- 7303 Oct, Lumbar strain 847.2 [facility] [id number] [address] Oct, Gastroparesis 536.3 and Unspecified myalgia and myositis 729.1 [facility] [facility] [id number] [address] Aug, [facility] [id number] [place] [address] Aug, [facility] [id number] [address] Jul, [facility] [id number] [address] Jul, [facility] [id number] [address] Jul, [facility] [id number] [address] Jul, [facility] [id number] [address] Jul, [facility] [id number] [address] Jun, [facility] [place] [facility] [address] [id number] [place] [address] Jun, [facility] [place] [facility] [address] [id number] [place] [address] Jun, [facility] [place] [facility] [address] [id number] [place] [address] May, [facility] [place] [facility] [address] [id number] [place] [address] May, [facility] [place] [facility] [address] [id number] [place] [address] Mar, [facility] [place] [facility] [address] [id number] [place] [address] Mar, [facility] [place] [facility] [address] [id number] [place] [address] Mar, [facility] [place] [facility] [address] [id number] [place] [address] Mar, [facility] [place] [facility] [address] [id number] [place] [address] Mar, [facility] [place] [facility] [address] [id number] [place] [address] Mar, [facility] [place] [facility] [address] [id number] [place] [address] Feb, [facility] [place] [facility] [address] [id number] [place] [address] Feb, [facility] [place] [facility] [address] [id number] [place] [address]84 Nov, [facility] [place] [facility] [address] [id number] [place] [address] Nov, [facility] [place] [facility] [address] [id number] [place] [address] Nov, [facility] [place] [facility] [address] [id number] [place] [address] 10 Oct, 2012 [facility] [address] [id number] [place] [address] September, [facility] [address] [id number] [place] [address] Aug, [facility] [address] [id number] [place] [address] Aug, [facility] [address] [id number] [place] [address] Aug, [facility] [address] [id number] [place] [address] Aug, [facility] [address] [id number] [place] [address] Aug, [facility] [address] [id number] [place] [address] Aug, [facility] [address] [id number] [place] [address] Aug, [facility] [address] [id number] [place] [address] Aug, [facility] [address] [id number] [place] [address] Jul, [facility] [address] [id number] [place] [address] Jul, [facility] [place] [facility] [address] [id number] [address] Jun, [facility] [place] [facility] [address] [id number] [place] [address] Jun, [facility] [place] [facility] [address] [id number] [place] [address] Jun, [facility] [address] [id number], [place] [address] Jun, [facility] [address] [facility] [id number], [place] [address] Jun, [facility] [id number], [place] [address] Jun, [facility] [id number], [place] [address] Jun, [facility] [id number], [place] [address] May, [facility] [id number], [place] [address] May, [facility] [id number], [place] [address] May, [facility] [id number], [place] [address] May, [facility] [id number], [place] [address] Mar, [facility] [address] [id number], [place] [address] Mar, [facility] [address] [id number], [place] [address] Jan, IMMUNIZATIONS No Known Immunizations SOCIAL HISTORY [...] vomitting-[facility] 03/05/17 Hospitalization History hospital stay at [facility] for stomach issues 2016
--- OUTSIDE RECORDS SUMMARY | 2018-01-27 20:08 | XMS REPORT ---
Author Author HORACE HIGGINS [facility] Address [address] [place] [address] Care Team Providers Care Finance Director Name Role Phone HORACE HIGGINS Unavailable PROBLEMS Type Condition ICD9-CM Code [id number] Code Onset Dates Condition Status SNOMED Code Problem History of colon polyps Z86.010 Active 391583712 Problem Asthma exacerbation J45.901 Active 943924665 Problem Primary insomnia F51.01 Active 9299456 Problem Tobacco dependency F17.200 Active 94623542 Problem Low TSH level R94.6 Active 617160812 Problem Annual physical exam Z00.00 Active 163964481 Problem Diabetic polyneuropathy associated with type 2 diabetes mellitus E11.42 Active 70729091 Problem Reactive depression F32.9 Active 06590076 Problem Migraine without aura and without status migrainosus, not intractable G43.009 Active 798864377 Problem PTSD (post-traumatic stress disorder) F43.10 Active 04015054 Problem Diabetes E11.9 Active 18686008 Problem Gastroparesis K31.84 Active 402706758 Problem Back pain M54.9 Active 892215782 Problem Neuropathy G62.9 Active 712929807 Problem Type 2 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 Active 66845066 Problem Uncomplicated asthma, unspecified asthma severity J45.909 Active 666002932 Problem [facility] 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 Z79.4 Active 421639315 Problem Anorexia R63.0 Active 47664685 Problem Mixed hyperlipidemia E78.2 Active 377068479 Problem Weight loss R63.4 Active 365027920 ALLERGIES Substance Reaction Event Type Date Status Coumadin vomitied blood Drug Allergy May, Active Toradol swells, itch from inside out Drug Allergy May, Active Nsaids (non-steroidal Anti-inflammatory Drug) triggers asthma, can't breathe, swells form inside out. Non Drug Allergy May, Active ENCOUNTERS Encounter Location Date Diagnosis [facility] [id number] [place] [address] 12442- 3822 Jan, [facility] [id number] [place] [address] 91489- 1495 Oct, [facility] [id number] [place] [address] 84120- 8618 Oct, [place] [address] 43860- 0942 Oct, PTSD (post-traumatic stress disorder) F43.10 and Tobacco dependency F17.200 [place] [address] 17030- 8230 Oct, [place] [id number] [place] [address] 23621- 5872 Oct, Other dorsalgia M54.89 [place] [address] 18437- 6733 Oct, Anorexia R63.0 [place] [id number] [place] [address] 17819- 0082 September, PTSD (post-traumatic stress disorder) F43.10 [place] [id number] [place] [address] 73958- 5825 September, Low TSH level R94.6 [place] [id number] [place] [address] 76646- 0204 September, Other dorsalgia M54.89 [place] [id number] [place] [address] 73227- 9021 September, Annual physical exam Z00.00 and Migraine without aura and without status migrainosus, not intractable G43.009 [place] [id number] [place] [address] 57612- 5410 September, Abnormal TSH R94.6 and Dysfunction of left eustachian tube H69.82 [place] [id number] [place] [address] 25113- 5254 Aug, [facility] [id number] [place] [address] 66937- 7381 Aug, Anorexia R63.0 [facility] [id number] [place] [address] [id number] Aug, Dental examination Z01.20 and Xerostomia K11.7 [facility] [id number] [place] [address] 12421- 9619 Aug, Neuropathy G62.9 [facility] [id number] [place] [address] 76318- 8505 Aug, [facility] [id number] [place] [address] 84522- 1625 Aug, Other dorsalgia M54.89 [facility] [id number] [place] [address] 59944- 9751 Aug, Type 2 diabetes mellitus with diabetic autonomic (poly) neuropathy E11.43 ; Diabetic polyneuropathy associated with type 2 diabetes mellitus E11.42 ; Bronchitis J40 ; Gastroparesis K31.84 and Reactive depression F32.9 [facility] [id number] [place] [address] 69138- 6461 Aug, PTSD (post-traumatic stress disorder) F43.10 [facility] [id number] [place] [address] 93940- 5653 Aug, Other dorsalgia M54.89 and Anorexia R63.0 [facility] [id number] [place] [address] 29961- 0983 Jul, [facility] [id number] [place] [address] 64214- 2086 Jul, Other dorsalgia M54.89 [facility] [id number] [place] [address] 01133- 0429 Jul, [facility] [id number] [place] [address] 02424- 4100 Jul, [facility] [id number] [place] [address] 48583- 6729 Jul, PTSD (post-traumatic stress disorder) F43.10 [facility] [id number] [place] [address] 52395- 2475 Jul, [facility] [id number] [place] [address] 22532- 9262 Jul, [facility] [id number] [place] [address] 93803- 6837 Jul, [facility] [address] 82080- 3987 Jul, Anorexia R63.0 [facility] [address] 05938- 0420 Jun, [facility] [address] 52330- 3607 Jun, Vaginal discharge N89.8 ; Visit for gynecologic examination Z01.419 and Pelvic pressure in female R10.2 [facility] [address] 23140- 7370 Jun, [facility] [id number] [place] [address] 74845- 8757 Jun, Other dorsalgia M54.89 [facility] [address] 14011- 0904 16 Jun, 2017 [facility] [id number] [place] [address] 06535- 6557 07 Jun, 2017 [facility] [address] 40463- 4914 Jun, [facility] [id number] [place] [address] 77820- 1228 May, Back pain M54.9 [facility] [address] 81785- 4501 May, Anorexia R63.0 [facility] [id number] [place] [address] 96475- 9326 May, Other dorsalgia M54.89 [facility] [id number] [place] [address] 05086- 4316 May, [facility] [address] 74651- 6550 May, Bronchitis J40 [facility] [id number] [place] [address] 50591- 7401 May, Type 2 diabetes mellitus with diabetic autonomic (poly) neuropathy E11.43 ; 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 ; Back pain M54.9 and Neuropathy G62.9 [facility] [id number] [place] [address] 46554- 8736 May, Left breast mass N63.20 [facility] [id number] [place] [address] 04025- 7325 May, [facility] [id number] [place] [address] 85677- 5739 Apr, Other dorsalgia M54.89 [facility] [id number] [place] [address] 95925 2541 Apr, Anorexia R63.0 [facility] [id number] [place] [address] 93821 2546 Apr, Anorexia R63.0 [facility] [id number] [place] [address] 84177 2545 Apr, Mass of left breast N63.20 [facility] [id number] [place] [address] 74149 2546 Apr, [facility] [id number] [place] [address] 06418- 0314 Apr, [facility] [id number] [place] [address] 02918- 6561 14 Apr, 2017 Diarrhea of presumed infectious origin A09 [facility] [id number] [place] [address] 14898- 8658 Apr, Encounter for immunization Z23 [facility] [id number] [place] [address] 09142- 7786 Apr, [facility] [id number] [place] [address] 51125- 3212 Mar, Other dorsalgia M54.89 [facility] [id number] [place] [address] 27955- 3990 Mar, [facility] [id number] [place] [address] 77988- 0781 Mar, [facility] [id number] [place] [address] 96018- 9610 Mar, Anorexia R63.0 [facility] [id number] [place] [address] 54292- 2096 Mar, [facility] [id number] [place] [address] 62106- 6049 Mar, Other dorsalgia M54.89 [facility] [id number] [place] [address] 92203- 9054 Mar, [facility] [id number] [place] [address] 62692- 9144 Mar, Encounter for immunization Z23 [facility] [id number] [place] [address] 95716- 6775 Feb, Anorexia R63.0 [facility] [address] 80988- 1366 Feb, Diabetes E11.9 [facility] [id number] [place] [address] 32101- 5808 Feb, Back pain M54.9 and Diabetes E11.9 [facility] [address] 92301- 4775 Feb, Diabetes E11.9 [facility] [address] 18915- 8058 Feb, Neuropathy G62.9 [facility] [address] 64412- 9557 Feb, Encounter for immunization Z23 ; Epigastric pain R10.13 ; Weight loss, abnormal R63.4 and Neuropathy G62.9 [facility] [place] [address] [id number] Feb, [facility] [address] 53624- 5643 Feb, [facility] [address] 76190- 2165 Feb, Intractable vomiting with nausea, unspecified vomiting type R11.2 [facility] [address] 07934 -4007 Feb, Chronic nausea R11.0 [facility] [address] 16784- 4641 Feb, Other dorsalgia M54.89 [facility] [address] 37322- 7457 Jan, [facility] [address] 28687- 8012 Jan, [facility] [address] 43183- 3549 Jan, [facility] [address] 64732- 9119 Jan, [facility] [address] 44560- 2197 Jan, Asthma exacerbation J45.901 ; Bronchitis J40 and Neuropathy G62.9 [facility] [address] 21873 2546 Jan, Anorexia R63.0 [facility] [id number] [place] [address] 48656 2546 Jan, Other dorsalgia M54.89 [facility] [id number] [place] [address] 24295- 4076 Dec, [facility] [id number] [place] [address] 16056- 3136 Dec, [facility] [id number] [place] [address] 54429 2546 Dec, Anorexia R63.0 [facility] [id number] [place] [address] 19808- 1286 Dec, Primary insomnia F51.01 [facility] [id number] [place] [address] 74091- 6246 Dec, Other dorsalgia M54.89 [facility] [id number] [place] [address] 99674- 3273 Dec, [facility] [id number] [place] [address] 68392- 5219 Nov, [facility] [id number] [place] [address] 95655- 1210 Nov, [facility] [id number] [place] [address] 02341- 9479 Nov, [facility] [id number] [place] [address] 99070 2545 Nov, History of colon polyps Z86.010 [facility] [address] [place] [address] 99449- 3214 Nov, Weight loss R63.4 ; Nausea and vomiting, intractability of vomiting not specified, unspecified vomiting type R11.2 and Abnormal LFTs R79.89 [facility] [id number] [place] [address] 15518- 0863 Nov, [facility] [address] [address]- 9824 14 Nov, 2016 Neuropathy G62.9 and Pain in right knee M25.561 [facility] [id number] [place] [address] 28963- 2227 12 Nov, 2016 Back pain M54.9 [facility] [id number] [place] [address] 08012- 1596 10 Nov, 2016 [facility] [id number] [place] [address] 68828- 4894 08 Nov, 2016 Bronchitis J40 [facility] [id number] [place] [address] 76192- 0134 Nov, Weight loss R63.4 [facility] [id number] [place] [address] 03682- 3018 16 Oct, 2016 Back pain M54.9 [facility] [id number] [place] [address] 06240- 9826 16 Oct, 2016 [facility] [id number] [place] [address] 50277- 0281 Oct, Back pain M54.9 [facility] [id number] [place] [address] 53315- 2020 13 Oct, 2016 Type 2 diabetes mellitus without complications E11.9 and Bronchitis J40 [facility] [id number] [place] [address] 15540- 8643 05 Oct, 2016 [facility] [id number] [place] [address] 42113- 6089 Oct, [facility] [id number] [place] [address] 07951- 1808 September, Gastroparesis K31.84 ; Type 2 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 and Neuropathy G62.9 [facility] [id number] [place] [address] 82836- 3365 September, Other dorsalgia M54.89 [facility] [id number] [place] [address] 81735- 8326 September, [facility] [id number] [place] [address] 16312- 1986 September, [facility] [id number] [place] [address] 43049- 6577 Aug, Gastroparesis K31.84 and Radicular leg pain M54.10 [facility] [id number] [place] [address] 53182- 3814 Aug, Anorexia R63.0 [facility] [address] 47477- 5823 Aug, Bronchitis J40 [facility] [address] 47413- 2567 Aug, Back pain M54.9 [facility] [id number] [place] [address] 72348- 9188 Aug, Routine gynecological examination Z01.419 ; Routine screening for STI (sexually transmitted infection) Z11.3 and Yeast infection of the vagina B37.3 [facility] [id number] [place] [address] 51160- 4715 Jul, Other dorsalgia M54.89 [facility] [id number] [place] [address] 92958- 2034 Jul, Diabetes E11.9 and Gastroparesis K31.84 [facility] [id number] [place] [address] 33555- 0506 Jun, [facility] [id number] [place] [address] 26870- 1048 Jun, Back pain M54.9 [facility] [id number] [place] [address] 87576- 0878 Jun, Neuropathy G62.9 [facility] [address] [address] [id number] 02 Jun, 2016 Encounter for dental examination Z01.20 [facility] [address] 65890- 9972 01 Jun, 2016 Gastroparesis 536.3 and Anorexia R63.0 [facility] [address] 45203- 8802 27 May, 2016 Other dorsalgia M54.89 [facility] [address] 32575- 5574 10 May, 2016 Periumbilical abdominal pain R10.33 ; Weight loss R63.4 and Gastroparesis K31.84 [facility] [address] 27687- 3837 May, Back pain M54.9 [facility] [address] 59424- 4199 Apr, Anorexia R63.0 [facility] [address] 88026- 3387 Apr, Anorexia R63.0 [facility] [address] 02483- 6414 Apr, Back pain M54.9 [facility] [address] 97222- 8549 Apr, Back pain M54.9 [facility] [id number] [place] [address] 41945 2546 Apr, [facility] [address] 12325- 9558 Apr, Bronchitis J40 and Neuropathy G62.9 [facility] [address] 38285- 3011 Apr, Neuropathy G62.9 [facility] [address] 73554 2548 Apr, [facility] [id number] [place] [address] 43224- 8441 Apr, Back pain M54.9 [facility] [id number] [place] [address] 34070- 9056 Mar, Type 2 diabetes mellitus with diabetic autonomic (poly) neuropathy E11.43 [facility] [id number] [place] [address] 85311- 8395 Mar, Type 2 diabetes mellitus without complications E11.9 [facility] [id number] [place] [address] 12750- 3919 Mar, Neuropathy G62.9 [facility] [id number] [place] [address] 81059- 6606 Mar, [facility] [id number] [place] [address] 29092- 6058 Mar, Breast cancer screening Z12.39 [place] [id number] [place] [address] 30426- 5614 Mar, Other dorsalgia M54.89 [facility] [id number] [place] [address] 80610- 1426 Feb, [facility] [id number] [place] [address] 65215- 9751 Jan, Neuropathy G62.9 ; Type 2 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 ; Uncomplicated asthma, unspecified asthma severity J45.909 and Encounter for immunization Z23 [facility] [id number] [place] [address] 53092- 6138 Jan, [facility] [address] 98981- 3386 Jan, [facility] [id number] [place] [address] 71449- 4899 Dec, [facility] [id number] [place] [address] 69691- 3450 Dec, [facility] [id number] [place] [address] 26095- 3045 Nov, [facility] [id number] [place] [address] 53913- 7650 Nov, Back pain M54.9 [facility] [id number] [place] [address] 76802- 2300 Nov, Neuropathy G62.9 ; Mixed hyperlipidemia E78.2 ; Type 2 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 [facility] [id number] [place] [address] 60113- 0172 Oct, [facility] [id number] [place] [address] 54892- 8474 Oct, Other dorsalgia M54.89 [facility] [id number] [place] [address] 16877- 0064 September, Primary insomnia F51.01 [facility] [id number] [place] [address] 72542- 6875 September, [facility] [id number] [place] [address] 09160- 8365 Aug, Other dorsalgia M54.89 [facility] [id number] [place] [address] 57000- 5516 Jul, [facility] [id number] [place] [address] 07776- 9834 Jul, Other dorsalgia M54.89 [facility] [id number] [place] [address] 71389- 7118 Jul, Diabetes E11.9 ; Back pain M54.9 ; Neuropathy G62.9 and Gastroparesis K31.84 [facility] [id number] [place] [address] 13040- 9010 Jun, [facility] [id number] [place] [address] 23098- 0772 Jun, Other dorsalgia M54.89 [facility] [id number] [place] [address] 34730- 6987 May, [facility] [id number] [place] [address] 48660- 8341 May, Radicular leg pain M54.10 and Other dorsalgia M54.89 [facility] [id number] [place] [address] 52368- 5621 Apr, [facility] [id number] [place] [address] [phone] Mar, [facility] [id number] [place] [address] [phone] Mar, [facility] [id number] [place] [address] [id number]- [phone] Mar, Radicular leg pain M54.10 [facility] [id number] [place] [address] [id number] Feb, [facility] [id number] [place] [address] [phone] Feb, [facility] [id number] [place] [address] [phone] Feb, [facility] [id number] [place] [address] [id number] Jan, [facility] [id number] [place] [address] [phone] 22 Jan, 2015 IBS (irritable bowel syndrome) 564.1 [facility] [id number] [place] [address] [phone] Jan, [facility] [id number] [place] [address] [id number] Jan, [facility] [id number] [place] [id number]- 6207 Jan, Diabetes mellitus without mention of complication, type II or unspecified type, not stated as uncontrolled 250.00 ; Gastroparesis 536.3 and Hypoacusis 389.9 [facility] [id number] [place] [address] 14291- 7376 Jan, [facility] [id number] [place] [address] 63788- 1277 Jan, [facility] [id number] [place] [address] 23232- 5809 Dec, [facility] [id number] [place] [address] 13657- 0809 Dec, [facility] [id number] [place] [address] 56938- 1382 Dec, [facility] [id number] [place] [address] 53480- 2381 Dec, Back pain 724.5 and Gastroparesis 536.3 [facility] [id number] [place] [address] 43785- 5375 Nov, [facility] [address] [id number] Nov, Dental examination V72.2 [facility] [id number] [place] [address] 55036- 2151 Nov, [facility] [id number] [place] [address] 87916- 3833 Nov, [facility] [id number] [place] [address] 61333- 2815 Nov, Depressive disorder, not elsewhere classified 311 and No condition on Arcadia II V71.09 [facility] [id number] [place] [address] 45997- 5341 Nov, Diabetes 250.00 and Symptomatic menopausal or female climacteric states 627.2 [facility] [id number] [place] [address] 90030- 5974 Oct, [facility] [address] [address] Oct, Lumbar strain 847.2 [facility] [address] [place] [address]49 Oct, Gastroparesis 536.3 and Unspecified myalgia and myositis 729.1 [facility] [address] [address] Aug, [facility] [address] [place] [address] 8546 Aug, [facility] [address] [place] [address] 3155 Jul, [facility] [address] [place] [address] 7776 Jul, [facility] [address] [place] [address] 9549 Jul, [facility] [address] [address] 3818 Jul, [facility] [address] [place] [address] 5[address] Jul, [facility] [address], [place] [address] 7622 Jun, [facility] [address], [place] [address] 5207 Jun, [facility] [id number], [place] [address] 3416 Jun, [facility] [address], [place] [address] 3878 May, [facility] [id number] [address] 8590 May, [facility] [place] [facility] [address] [id number] [place] [address]- 4385 Mar, [facility] [place] [facility] [address] [id number] [place] [address]- 3469 Mar, [facility] [place] [facility] [address] [id number] [place] [address] 2546 Mar, [facility] [place] [facility] [address] [id number] [place] [address]- 4196 Mar, [facility] [place] [facility] [address] [id number] [place] [address]- 7594 Mar, [facility] [place] [facility] [address] [id number] [place] [address]- 5090 Mar, [facility] [place] [facility] [address] [id number] [place] [address]- 7535 Feb, [facility] [place] [facility] [address] [id number] [place] [address]- 0389 Feb, [facility] [place] [facility] [address] [id number] [place] [address]- 0383 Nov, [facility] [place] [facility] [address] [id number] [place] [address]- 8887 Nov, [facility] [place] [facility] [address] [id number] [place] [address]- 7421 Nov, [facility] [place] [facility] [address] [id number] [place] [address]- 0215 Oct, [facility] [place] [facility] [address] [id number] [place] [address]- 7331 September, [facility] [place] [facility] [address] [id number] [place] [address]- 0374 Aug, [facility] [place] [facility] [address] [id number] [place] [address]- 4586 15 Aug, 2012 [facility] [place] [facility] [address] [id number] [place] [address]- 2360 Aug, [facility] [address] [id number] [place] [address]- 1768 Aug, [facility] [place] [facility] [address] [id number] [place] [address]- 9556 Aug, [facility] [place] [facility] [address] [id number] [place] [address]- 0173 Aug, [facility] [place] [facility] [address] [id number] [place] [address]- 9325 Aug, [facility] [place] [facility] [address] [id number] [place] [address]- 5109 Aug, [facility] [place] [facility] [address] [id number] [place] [address]- 3207 Jul, [facility] [place] [facility] [id number] [place] [address]- 8872 Jul, [facility] [place] [facility] [address] [id number] [place] [address]- 9001 Jun, [facility] [place] [facility] [address] [id number] [place] [address]- 9870 Jun, [facility] [place] [facility] [id number] [place] [address]- 7483 Jun, [facility] [place] [facility] [address] [id number], [place] [address]- 9371 Jun, [facility] [place] [facility] [address] [id number], [place] [address]- 5480 Jun, [facility] [place] [facility] [address] [id number] [place] [address]- 1640 Jun, [facility] [place] [facility] [address] [id number], [place] [address]- 7009 Jun, [facility] [place] [facility] [address] [id number] [place] [address]- 1701 May, [facility] [place] [facility] [address] [facility] [id number] [place] [address]- 0924 May, [facility] [address] [facility] [id number], [place] [address]- 7824 May, [facility] [id number], [place] [address]- 3922 May, [facility] [address], [place] [address]- 6072 Mar, [facility] [address] [facility] [id number], [place] [address]- 8490 Mar, [facility] [address] [facility] [id number], [place] [address]- 8585 Jan, IMMUNIZATIONS No Known Immunizations SOCIAL HISTORY Never Assessed REASON FOR VISIT Diabetes, PT has a cough and sore throat for two days-Vinod RODRIGUEZ PLAN OF CARE Activity Details Follow Up 3 Months Reason: VITAL SIGNS Height 62 in 2017-06-05 Weight 91.1 lbs 2017-06-05 Temperature 98.8 degrees Fahrenheit 2017-06-05 Heart Rate 76 bpm 2017-06-05 Respiratory Rate 18 2017-06-05 BMI 16.66 kg/m2 2017-06-05 Blood pressure systolic 94 mmHg 2017-06-05 Blood pressure diastolic 58 mmHg 2017-06-05 MEDICATIONS Medication Instructions Dosage Frequency Start Date End Date Duration Status ProAir HFA 108 INHALE 2 PUFFS BY MOUTH FOUR TIMES DAILY NEEDED 25 Active Cyanocobalamin 1000 MCG Orally Once a day 1 tablet 24h Active Zofran ODT 8 MG DISSOLVE ONE TABLET ON THE TONGUE EVERY 6 HOURS 5 Active Acetaminophen 500 mg Orally at bedtime 2 capsules Active Zolpidem Tartrate 10 mg TAKE ONE TABLET BY MOUTH ONCE DAILY 30 Active Lyrica 150 MG Orally Twice a day 1 capsule 12h 30 days Active Comfort Lancets - as directed 8h 30 Mar, 2016 Active Tizanidine HCl 4 MG Orally 2 times a day 1 tablet 12h May, 30 days Active Marinol 5 mg Orally Twice a day 1 capsule before lunch and supper 12h 28 days Active Linzess 145 MCG Orally Once a day 1 capsule 24h Active Xarelto 20 mg 1 Tablet by Oral route 1 time per day Jul, Active Omeprazole 40 mg 1 CAP(S) ONCE A DAY ORALLY 30 DAYS 30 Active Microlet Lancets 0 USE DIRECTED THREE TIMES DAILY 30 Active Questran Light 4 GM/DOSE Orally Twice a day 1 packet 12h Apr, 05 days Active Oxycodone-Acetaminophen 10-325 MG Orally 4 times a day 1 tablet as needed 6h 29 Apr, 2017 28 days Active Quad Cane - as directed 24h Apr, Active Lantus SoloStar 100 20 UNITS SUB-Q EVERY NIGHT AT BEDTIME Active Humalog KwikPen 100 INJECT 5 UNITS SUB-Q THREE TIMES DAILY BOFORE MEALS Active Cyclobenzaprine HCl 10 TAKE 1 TABLET BY MOUTH THREE TIMES DAILY 30 Active Multiple Vitamins-Iron - Orally Once a day 1 tablet 24h Active Ayden Contour Next Test - subcutaneously 3 times a day test blood sugar 8h Active MiraLax - Orally Once a day as needed 1 packet mixed with 8 ounces of fluid Active Promethazine HCl 25 MG Orally every 6 hrs 1 tablet as needed 6h 5 Active [employer] Pen Doyle 31G X 6 MM 1 THREE TIMES A DAY Active Atorvastatin Calcium 40 MG Orally Once a day 1 tablet 24h Active Escitalopram Oxalate 20 mg Orally Once a day 1 tablet 24h Active RESULTS Name Result Date Reference Range A1C (IN HOUSE) 2017-06-05 A1C IN HOUSE 6.5 4.3 - 5.6 % Previous A1c 10.7 Lot [id number] Exp date 02/2019 PROCEDURES Procedure Date Ordered Result Body Site GLYCATED HEMOGLOBIN TEST Jun 05, 2017 [facility] VISIT ESTABLISHED PATIENT Jun 05, 2017 INSTRUCTIONS MEDICATIONS ADMINISTERED No Known Medications [...] vomitting-[facility] 03/05/17 Hospitalization History hospital stay at [facility] for stomach issues 2016
--- OUTSIDE RECORDS SUMMARY | 2018-01-27 20:08 | XMS REPORT ---
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 Role Phone HORACE HIGGINS Unavailable PROBLEMS Type Condition ICD9-CM Code YGD10-SV Code Onset Dates Condition Status SNOMED Code Problem Weight loss R63.4 Active 462931446 Problem Primary insomnia F51.01 Active 3832477 Problem History of colon polyps Z86.010 Active 110094840 Problem Annual physical exam Z00.00 Active 769523187 Problem Migraine without aura and without status migrainosus, not intractable G43.009 Active 617248313 Problem Reactive depression F32.9 Active 70914974 Problem Asthma exacerbation J45.901 Active 575775851 Problem PTSD (post-traumatic stress disorder) F43.10 Active 58909718 Problem Diabetic polyneuropathy associated with type 2 diabetes mellitus E11.42 Active 44520692 Problem Neuropathy G62.9 Active 217512599 Problem Diabetes E11.9 Active 42996661 Problem Low TSH level R94.6 Active 731542431 Problem Back pain M54.9 Active 643230675 Problem Mixed hyperlipidemia E78.2 Active 360386338 Problem Type 2 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 Active 22246916 Problem Gastroparesis K31.84 Active 069983823 Problem Uncomplicated asthma, unspecified asthma severity J45.909 Active 060644062 Problem 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 Active 811788868 Problem Anorexia R63.0 Active 53027360 ALLERGIES No Information ENCOUNTERS Encounter Location Date Diagnosis [facility] [address], [place] [address] September, [facility] [id number], [place] [address] September, [facility] [id number] [place] [address] 99909- 1741 September, [place] [address] [id number]- 7969 September, Annual physical exam Z00.00 and Migraine without aura and without status migrainosus, not intractable G43.009 [place] [address] [id number]- [address] September, Abnormal TSH R94.6 and Dysfunction of left eustachian tube H69.82 [place] [address] 20763- 7653 Aug, [place] [address] [address] 3315 Aug, Anorexia R63.0 [facility] [address] [id number] Aug, Dental examination Z01.20 and Xerostomia K11.7 [place] [address] 23295- 4954 Aug, Neuropathy G62.9 [place] [address] 62314- 1449 Aug, [place] [address] 82491- 5526 Aug, Other dorsalgia M54.89 [place] [address] 28947- 3890 Aug, Type 2 diabetes mellitus with diabetic autonomic (poly) neuropathy E11.43 ; Diabetic polyneuropathy associated with type 2 diabetes mellitus E11.42 ; Bronchitis J40 ; Gastroparesis K31.84 and Reactive depression F32.9 [place] [address] 51231- 0930 Aug, PTSD (post-traumatic stress disorder) F43.10 [place] [address] 51561- 0143 Aug, Other dorsalgia M54.89 and Anorexia R63.0 [facility] [id number] [place] [address] 16585- 1776 Jul, [facility] [address] 62043 2546 Jul, Other dorsalgia M54.89 [facility] [address] 46508- 5866 Jul, [facility] [address] 19255 2542 Jul, [facility] [address] 99051- 2151 Jul, PTSD (post-traumatic stress disorder) F43.10 [facility] [address] 92596- 8180 Jul, [facility] [address] 58791- 5578 Jul, [facility] [address] 58795 2542 Jul, [facility] [address] 73091 2546 Jul, Anorexia R63.0 [facility] [id number] [place] [address] 41836- 5329 Jun, [facility] [id number] [place] [address] 86902- 2548 Jun, Vaginal discharge N89.8 ; Visit for gynecologic examination Z01.419 and Pelvic pressure in female R10.2 [facility] [address] 8[address]37 2546 Jun, [facility] [id number] [place] [address] 12012- 4326 Jun, Other dorsalgia M54.89 [facility] [id number] [place] [address] 87594- 0914 Jun, [facility] [id number] [place] [address] 38989- 6409 Jun, [facility] [id number] [place] [address] 81983- 7814 Jun, [facility] [id number] [place] [address] 35964- 2999 May, Back pain M54.9 [facility] [address] 81964- 4759 May, Anorexia R63.0 [facility] [address] 24215- 5270 May, Other dorsalgia M54.89 [facility] [address] 49261- 2989 May, [facility] [address] 25587- 9236 May, Bronchitis J40 [facility] [id number] [place] [address] 40874- 3310 May, Type 2 diabetes mellitus with diabetic autonomic (poly) neuropathy E11.43 ; residential 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 Z79.4 ; Back pain M54.9 and Neuropathy G62.9 [facility] [id number] [place] [address] 72214- 9298 May, Left breast mass N63.20 [facility] [id number] [place] [address] 31908- 4422 May, [facility] [address] 83534- 2307 Apr, Other dorsalgia M54.89 [facility] [id number] [place] [address] 14916- 1826 Apr, Anorexia R63.0 [facility] [address] 40678- 1149 Apr, Anorexia R63.0 [facility] [id number] [place] [address] 54083- 2828 Apr, Mass of left breast N63.20 [facility] [id number] [place] [address] 36819- 9199 Apr, [facility] [id number] [place] [address] 97584- 8444 Apr, [facility] [id number] [place] [address] 80745- 6517 Apr, Diarrhea of presumed infectious origin A09 [facility] [id number] [place] [address] 33572- 2391 Apr, Encounter for immunization Z23 [facility] [id number] [place] [address] 28287- 1690 Apr, [facility] [id number] [place] [address] 08931- 2695 Mar, Other dorsalgia M54.89 [facility] [id number] [place] [address] 13346- 7495 Mar, [facility] [id number] [place] [address] 18972- 7347 Mar, [facility] [id number] [place] [address] 36656- 0912 Mar, Anorexia R63.0 [facility] [id number] [place] [address] 60332- 9914 Mar, [facility] [id number] [place] [address] 05315- 4444 Mar, Other dorsalgia M54.89 [facility] [id number] [place] [address] 15287- 0059 Mar, [facility] [id number] [place] [address] 53385- 7412 Mar, Encounter for immunization Z23 [facility] [id number] [place] [address] 05121- 4758 Feb, Anorexia R63.0 [facility] [address] 18299- 5440 Feb, Diabetes E11.9 [facility] [address] 02687- 4278 Feb, Back pain M54.9 and Diabetes E11.9 [facility] [address] 24715- 0067 Feb, Diabetes E11.9 [facility] [address] 42227- 4674 Feb, Neuropathy G62.9 [facility] [address] 52501- 9136 Feb, Encounter for immunization Z23 ; Epigastric pain R10.13 ; Weight loss, abnormal R63.4 and Neuropathy G62.9 [facility] [address] [id number] Feb, [facility] [address] 29485- 3246 Feb, [facility] [address] 16152- 3523 Feb, Intractable vomiting with nausea, unspecified vomiting type R11.2 [facility] [id number] [place] [address] 17007 -8823 Feb, Chronic nausea R11.0 [facility] [address] 17073- 1445 Feb, Other dorsalgia M54.89 [facility] [id number] [place] [address] 54164- 1481 Jan, [facility] [address] 39638- 2540 Jan, [facility] [id number] [place] [address], [place] [address] 2546 Jan, [facility] [id number] [place] [address] 02659 2546 Jan, [facility] [id number] [place] [address] 10201 2546 Jan, Asthma exacerbation J45.901 ; Bronchitis J40 and Neuropathy G62.9 [facility] [id number] [place] [address] 77834 2546 Jan, Anorexia R63.0 [facility] [address] 71191 2546 Jan, Other dorsalgia M54.89 [facility] [id number] [place] [address] 39643- 4466 Dec, [facility] [id number] [place] [address] 21448- 1376 Dec, [facility] [id number] [place] [address] 50480 2546 Dec, Anorexia R63.0 [facility] [id number] [place] [address] 79265- 2336 Dec, Primary insomnia F51.01 [facility] [id number] [place] [address] 74049 2546 Dec, Other dorsalgia M54.89 [facility] [id number] [place] [address] 36966 2546 Dec, [facility] [id number] [place] [address] 64014 2546 Nov, [facility] [id number] [place] [address] 70767 2546 Nov, [facility] [id number] [place] [address] 38630- 4829 Nov, [facility] [id number] [place] [address] 39030- 7244 Nov, History of colon polyps Z86.010 [facility] [id number] [place] [address] 67933- 2396 Nov, Weight loss R63.4 ; Nausea and vomiting, intractability of vomiting not specified, unspecified vomiting type R11.2 and Abnormal LFTs R79.89 [facility] [address] 29198- 9745 Nov, [place] [address] 93179- 8222 Nov, Neuropathy G62.9 and Pain in right knee M25.561 [place] [address] 08577- 2855 Nov, Back pain M54.9 [place] [address] 56087- 4596 Nov, [facility] [id number] [place] [address] 83332- 6326 Nov, Bronchitis J40 [facility] [id number] [place] [address] 36532- 6580 03 Nov, 2016 Weight loss R63.4 [place] [id number] [place] [address] 92024- 6652 Oct, Back pain M54.9 [facility] [id number] [place] [address] 98714- 0184 16 Oct, 2016 [facility] [id number] [place] [address] 66743- 6987 14 Oct, 2016 Back pain M54.9 [facility] [id number] [place] [address] 85215- 4361 13 Oct, 2016 Type 2 diabetes mellitus without complications E11.9 and Bronchitis J40 [facility] [address] [place] [address]- 8008 Oct, [facility] [id number] [place] [address] 82639- 3659 Oct, [facility] [id number] [place] [address] 76323- 3535 September, Gastroparesis K31.84 ; Type 2 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 and Neuropathy G62.9 [place] [id number] [place] [address] 58827- 2938 September, Other dorsalgia M54.89 [place] [id number] [place] [address] 72182- 3131 September, [facility] [id number] [place] [address] 50394- 7756 September, [place] [address] 24929- 9920 Aug, Gastroparesis K31.84 and Radicular leg pain M54.10 [place] [id number] [place] [address] 48123- 3657 Aug, Anorexia R63.0 [place] [id number] [place] [address] 20555- 6153 Aug, Bronchitis J40 [place] [id number] [place] [address] 34032- 2403 Aug, Back pain M54.9 [facility] [id number] [place] [address] 13042- 5567 Aug, Routine gynecological examination Z01.419 ; Routine screening for STI (sexually transmitted infection) Z11.3 and Yeast infection of the vagina B37.3 [facility] [id number] [place] [address] 24851- 1790 Jul, Other dorsalgia M54.89 [facility] [id number] [place] [address] 58069- 8080 Jul, Diabetes E11.9 and Gastroparesis K31.84 [facility] [id number] [place] [address] 61068- 3159 Jun, [facility] [address] 90577- 5508 24 Jun, 2016 Back pain M54.9 [facility] [address] 51774- 7579 14 Jun, 2016 Neuropathy G62.9 [facility] [address] [id number] 02 Jun, 2016 Encounter for dental examination Z01.20 [facility] [address] 51474- 8490 01 Jun, 2016 Gastroparesis 536.3 and Anorexia R63.0 [facility] [address] 85537- 1958 May, Other dorsalgia M54.89 [facility] [address] 54712- 4007 May, Periumbilical abdominal pain R10.33 ; Weight loss R63.4 and Gastroparesis K31.84 [facility] [id number] [place] [address] 76319- 9039 May, Back pain M54.9 [facility] [address] 59266- 7566 Apr, Anorexia R63.0 [facility] [id number] [place] [address] 89684- 0923 Apr, Anorexia R63.0 [facility] [address] 04856- 5978 Apr, Back pain M54.9 [facility] [id number] [place] [address] 98797- 4816 Apr, Back pain M54.9 [facility] [address], [place] [address]- 9098 Apr, [facility] [id number] [place] [address] 59315- 0111 Apr, Bronchitis J40 and Neuropathy G62.9 [facility] [id number] [place] [address] 39974- 8482 Apr, Neuropathy G62.9 [facility] [id number] [place] [address] 10805- 7890 Apr, [facility] [id number] [place] [address] 25988- 1224 Apr, Back pain M54.9 [facility] [id number] [place] [address] 08188- 9620 Mar, Type 2 diabetes mellitus with diabetic autonomic (poly) neuropathy E11.43 [facility] [id number] [place] [address] 05344- 3157 Mar, Type 2 diabetes mellitus without complications E11.9 [facility] [id number] [place] [address] 78208- 1136 Mar, Neuropathy G62.9 [facility] [id number] [place] [address] 08488- 8960 Mar, [facility] [id number] [place] [address] 54951- 6815 Mar, Breast cancer screening Z12.39 [facility] [id number] [place] [address] 19872- 4363 Mar, Other dorsalgia M54.89 [facility] [id number] [place] [address] 36641- 4611 Feb, [facility] [address] [place] [address] 70656- 0684 Jan, Neuropathy G62.9 ; Type 2 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 ; Uncomplicated asthma, unspecified asthma severity J45.909 and Encounter for immunization Z23 [facility] [id number] [place] [address] 10221- 2274 Jan, [facility] [id number] [place] [address] 49811- 5091 Jan, [facility] [id number] [place] [address] 37132- 4647 Dec, [facility] [address] 79800- 3075 Dec, [facility] [id number] [place] [address] 13965- 6855 Nov, [place] [address] 24223- 3484 Nov, Back pain M54.9 [place] [address] 98121- 1964 Nov, Neuropathy G62.9 ; Mixed hyperlipidemia E78.2 ; Type 2 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 and residential 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 Z79.4 [place] [id number] [place] [address] 30966- 1805 Oct, [place] [id number] [place] [address] 48369- 3048 Oct, Other dorsalgia M54.89 [place] [id number] [place] [address] 28173- 6649 September, Primary insomnia F51.01 [facility] [id number] [place] [address] 32399- 7529 September, [place] [address] 59301- 1319 Aug, Other dorsalgia M54.89 [place] [id number] [place] [address] 59339- 7151 Jul, [facility] [id number] [place] [address] 23723- 2117 Jul, Other dorsalgia M54.89 [facility] [address] 96200- 4494 Jul, Diabetes E11.9 ; Back pain M54.9 ; Neuropathy G62.9 and Gastroparesis K31.84 [facility] [address] 02122- 3981 Jun, [facility] [address] 42202- 0879 Jun, Other dorsalgia M54.89 [facility] [address] 19454- 8971 May, [facility] [address] 47395- 1454 May, Radicular leg pain M54.10 and Other dorsalgia M54.89 [facility] [id number] [place] [address] 04435- 5114 Apr, [facility] [address] 20930- 7835 Mar, [facility] [id number] [place] [address] 71654- 1875 Mar, [facility] [id number] [place] [address] 14428- 4150 Mar, Radicular leg pain M54.10 [facility] [id number] [place] [address] 32306- 9326 Feb, [facility] [address] 18331- 0420 Feb, [facility] [id number] [place] [address] 23165- 2014 Feb, [facility] [address] 33059- 1777 Jan, [facility] [id number] [place] [address] 95167- 2791 Jan, IBS (irritable bowel syndrome) 564.1 [facility] [id number] [place] [address] 03066- 3423 Jan, [facility] [id number] [place] [address] 57602- 6892 Jan, [facility] [id number] [place] [address] 48780- 1962 Jan, Diabetes mellitus without mention of complication, type II or unspecified type, not stated as uncontrolled 250.00 ; Gastroparesis 536.3 and Hypoacusis 389.9 [facility] [id number] [place] [address] 40043- 5582 Jan, [facility] [id number] [place] [address] 59911- 2022 Jan, [facility] [id number] [place] [address] 90055- 6443 Dec, [facility] [id number] [place] [address] 21308- 0381 Dec, [facility] [id number] [place] [address] 34671- 3519 Dec, [facility] [id number] [place] [address] 87307- 5851 Dec, Back pain 724.5 and Gastroparesis 536.3 [facility] [id number] [place] [address] 15895- 9193 Nov, [facility] [address] [place] [address] [id number] Nov, Dental examination V72.2 [facility] [id number] [place] [address] 33822- 7591 Nov, [facility] [address], [place] [address]- 0476 15 Nov, 2014 [facility] [id number] [place] [address] 13790- 7007 Nov, Depressive disorder, not elsewhere classified 311 and No condition on Wendel II V71.09 [facility] [address], [place] [address]- 6980 Nov, Diabetes 250.00 and Symptomatic menopausal or female climacteric states 627.2 [facility] [address], [place] [address]- 0376 Oct, [facility] [id number] [place] [address] 59077- 5543 Oct, Lumbar strain 847.2 [facility] [address], [place] [address]- 2333 Oct, Gastroparesis 536.3 and Unspecified myalgia and myositis 729.1 [facility] [address], [place] [address]- 3577 Aug, [facility] [id number] [place] [address] 00254- 6495 Aug, [facility] [address], [place] [address]- 2579 Jul, [facility] [address], [place] [address]- 4613 Jul, [facility] [address], [place] [address]- 8882 Jul, [facility] [address], [place] [address]- 8218 Jul, [facility] [address], [place] [address]- 1036 Jul, [facility] [address], [place] [address]- 8163 Jun, [facility] [place] [facility] [address] [id number] [place] [address]- 0678 Jun, [facility] [place] [facility] [address] [id number] [place] [address] Jun, [facility] [place] [facility] [address] [id number] [place] [address] May, [facility] [place] [facility] [address] [id number] [place] [address] May, [facility] [place] [facility] [address] [id number] [place] [address] Mar, [facility] [place] [facility] [address] [id number] [place] [address] Mar, [facility] [place] [facility] [address] [id number] [place] [address] Mar, [facility] [place] [facility] [address] [id number] [place] [address] Mar, [facility] [place] [facility] [address] [id number] [place] [address] Mar, [facility] [place] [facility] [address] [id number] [place] [address] Mar, [facility] [place] [facility] [address] [id number] [place] [address] Feb, [facility] [place] [facility] [address] [id number] [place] [address] Feb, [facility] [place] [facility] [address] [id number] [place] [address] Nov, [facility] [place] [facility] [address] [id number] [place] [address] Nov, [facility] [place] [facility] [address] [id number] [place] [address] Nov, [facility] [place] [facility] [address] [id number] [place] [address] 10 Oct, 2012 [facility] [address] [id number] [place] [address] September, [facility] [address] [id number] [place] [address] Aug, [facility] [address] [id number] [place] [address] Aug, [facility] [address] [id number] [place] [address] Aug, [facility] [address] [id number] [place] [address] Aug, [facility] [address] [id number] [place] [address] Aug, [facility] [address] [id number] [place] [address] Aug, [facility] [address] [id number] [place] [address] Aug, [facility] [address] [id number] [place] [address] Aug, [facility] [address] [id number] [place] [address] Jul, [facility] [address] [id number] [place] [address] Jul, [facility] [place] [facility] [address] [id number], [place] [address] Jun, [facility] [place] [facility] [address] [id number] [place] [address] Jun, [facility] [place] [facility] [address] [id number] [place] [address] Jun, [facility] [address] [id number], [place] [address] Jun, [facility] [address] [facility] [id number], [place] [address] Jun, [facility] [address] [id number] [address] Jun, [facility] [address] [id number], [place] [address] Jun, [facility] [id number] [address] May, [facility] [address] [id number], [place] [address] May, [facility] [id number], [place] [address] May, [facility] [id number], [place] [address] May, [facility] [id number], [place] [address] Mar, [facility] [address] [id number], [place] [address] Mar, [facility] [address] [id number], [place] [address] Jan, IMMUNIZATIONS No Known Immunizations SOCIAL HISTORY Never Assessed REASON FOR VISIT Insulin pump PLAN OF CARE VITAL SIGNS MEDICATIONS Unknown [...]
--- OUTSIDE RECORDS SUMMARY | 2018-01-27 20:09 | XMS REPORT ---
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 Name Role Phone HORACE HIGGINS Unavailable PROBLEMS Type Condition ICD9-CM Code KBT38-BC Code Onset Dates Condition Status SNOMED Code Problem Uncomplicated asthma, unspecified asthma severity J45.909 Active 741956532 Problem Weight loss R63.4 Active 028055261 Problem Anorexia R63.0 Active 79208174 Problem PTSD (post-traumatic stress disorder) F43.10 Active 85402203 Problem Diabetic polyneuropathy associated with type 2 diabetes mellitus E11.42 Active 93901729 Problem Primary insomnia F51.01 Active 3641757 Problem History of colon polyps Z86.010 Active 030029423 Problem Reactive depression F32.9 Active 78362269 Problem Asthma exacerbation J45.901 Active 850327149 Problem Depressive disorder, not elsewhere classified 311 Active 37895846 Problem Back pain M54.9 Active 911869038 Problem Gastroparesis K31.84 Active 515600030 Problem Mixed hyperlipidemia E78.2 Active 307997334 Problem Neuropathy G62.9 Active 238350124 Problem Type 2 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 Active 43965519 Problem Diabetes E11.9 Active 16504773 Problem 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 Active 728876548 ALLERGIES No Information ENCOUNTERS Encounter Location Date Diagnosis [facility] [address] [facility] [id number] [address] September, [facility] [address] [address] September, [facility] [id number] [id number] Aug, [facility] [address] [address] Aug, [facility] [id number] [place] [address] 24693 2546 Aug, Other dorsalgia M54.89 [facility] [id number] [place] [address] 33437 2546 Aug, Type 2 diabetes mellitus with diabetic autonomic (poly) neuropathy E11.43 ; Diabetic polyneuropathy associated with type 2 diabetes mellitus E11.42 ; Bronchitis J40 ; Gastroparesis K31.84 and Reactive depression F32.9 [facility] [id number] [place] [address] 34185 2546 Aug, PTSD (post-traumatic stress disorder) F43.10 [facility] [id number] [place] [address] 52820- 8906 Aug, Other dorsalgia M54.89 and Anorexia R63.0 [facility] [id number] [place] [address] 25465- 5456 Jul, [facility] [id number] [place] [address] 68639- 8566 Jul, Other dorsalgia M54.89 [facility] [id number] [place] [address] 26628 2546 Jul, [facility] [id number] [place] [address] 69825- 0516 Jul, [facility] [id number] [place] [address] 09140 2544 Jul, PTSD (post-traumatic stress disorder) F43.10 [facility] [id number] [place] [address] 62784- 0886 Jul, [facility] [id number] [place] [address] 05753- 3876 Jul, [facility] [id number] [place] [address] 74480- 7166 Jul, [facility] [address] [place] [address] Jul, Anorexia R63.0 [facility] [address] 37657 2546 Jun, [facility] [id number] [place] [address] 59760 2546 Jun, Vaginal discharge N89.8 ; Visit for gynecologic examination Z01.419 and Pelvic pressure in female R10.2 [facility] [address] 36233 2546 Jun, [facility] [address] 51273 2546 Jun, Other dorsalgia M54.89 [facility] [address] 65986- 4956 Jun, [facility] [address] 45622- 6296 Jun, [facility] [id number] [place] [address] 65832- 4956 Jun, [facility] [address] 18974 2546 May, Back pain M54.9 [facility] [id number] [place] [address] 94267 2546 May, Anorexia R63.0 [facility] [id number] [place] [address] 84571 2546 May, Other dorsalgia M54.89 [facility] [address] 06429 2546 May, [facility] [address] 28679 2546 May, Bronchitis J40 [facility] [id number] [place] [address] 23026 2546 May, Type 2 diabetes mellitus with diabetic autonomic (poly) neuropathy E11.43 ; 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 ; Back pain M54.9 and Neuropathy G62.9 [place] [address] 65793- 8835 May, Left breast mass N63.20 [facility] [address] 62350- 0426 May, [facility] [address] 43475- 0697 Apr, Other dorsalgia M54.89 [place] [address] 82823- 5998 Apr, Anorexia R63.0 [place] [address] 06300- 8459 Apr, Anorexia R63.0 [place] [address] 23738- 2166 Apr, Mass of left breast N63.20 [place] [address] 61303- 6201 Apr, [place] [address] 85158- 5927 Apr, [place] [address] 60723- 0221 Apr, Diarrhea of presumed infectious origin A09 [place] [address] 27384- 2291 Apr, Encounter for immunization Z23 [place] [address] 51890- 9163 Apr, [place] [address] 57275- 5212 Mar, Other dorsalgia M54.89 [place] [address] 68219- 0045 Mar, [facility] [id number] [place] [address] 67873- 6951 Mar, [facility] [id number] [place] [address] 14418- 2258 Mar, Anorexia R63.0 [facility] [id number] [place] [address] 31027- 6623 Mar, [facility] [address] 67019- 4475 Mar, Other dorsalgia M54.89 [facility] [address] 18753- 3989 Mar, [facility] [id number] [place] [address] 94628- 4620 Mar, Encounter for immunization Z23 [facility] [address] 29414- 7289 Feb, Anorexia R63.0 [facility] [id number] [place] [address] 11707- 3467 Feb, Diabetes E11.9 [facility] [address] 90710- 3793 Feb, Back pain M54.9 and Diabetes E11.9 [facility] [id number] [place] [address] 82753- 9404 Feb, Diabetes E11.9 [facility] [id number] [place] [address] 58905- 2024 Feb, Neuropathy G62.9 [facility] [id number] [place] [address] 47689- 2514 Feb, Encounter for immunization Z23 ; Epigastric pain R10.13 ; Weight loss, abnormal R63.4 and Neuropathy G62.9 [facility] [id number] [place] [address] [id number] Feb, [facility] [id number] [place] [address] 51571- 5038 Feb, [facility] [address] 89231- 4127 Feb, Intractable vomiting with nausea, unspecified vomiting type R11.2 [facility] [address] 38081 -9609 Feb, Chronic nausea R11.0 [facility] [address] 39715- 8656 Feb, Other dorsalgia M54.89 [facility] [address] 17161- 4593 Jan, [facility] [address] 87859- 1321 Jan, [facility] [address] 76896- 9579 Jan, [facility] [address] 95397- 9050 Jan, [facility] [address] 82511- 2405 Jan, Asthma exacerbation J45.901 ; Bronchitis J40 and Neuropathy G62.9 [facility] [id number] [place] [address] 80316- 3706 Jan, Anorexia R63.0 [facility] [address] 55326- 3981 Jan, Other dorsalgia M54.89 [facility] [address] 44870- 5932 Dec, [facility] [address] 42395- 7612 Dec, [facility] [address] 57558- 3872 Dec, Anorexia R63.0 [facility] [id number] [place] [address] 94324- 5436 Dec, Primary insomnia F51.01 [facility] [address] 11342- 9491 Dec, Other dorsalgia M54.89 [facility] [id number] [place] [address] 10477- 4870 Dec, [facility] [address] 70209- 0530 Nov, [facility] [id number] [place] [address] 57658- 7381 Nov, [facility] [id number] [place] [address] 16744- 1713 Nov, [facility] [id number] [place] [address] 12819- 1992 Nov, History of colon polyps Z86.010 [facility] [id number] [place] [address] 56645- 2817 Nov, Weight loss R63.4 ; Nausea and vomiting, intractability of vomiting not specified, unspecified vomiting type R11.2 and Abnormal LFTs R79.89 [facility] [id number] [place] [address] 52388- 8560 Nov, [facility] [id number] [place] [address] 12331- 8277 Nov, Neuropathy G62.9 and Pain in right knee M25.561 [facility] [id number] [place] [address] 49359- 0657 Nov, Back pain M54.9 [facility] [id number] [place] [address] 95835- 2405 Nov, [facility] [id number] [place] [address] 38336- 8216 Nov, Bronchitis J40 [place] [id number] [place] [address] 76283- 4947 Nov, Weight loss R63.4 [facility] [id number] [place] [address] 62679- 7421 Oct, Back pain M54.9 [facility] [id number] [place] [address] 00838- 3986 Oct, [facility] [id number] [place] [address] 80660- 4691 Oct, Back pain M54.9 [facility] [id number] [place] [address] 52217- 4045 Oct, Type 2 diabetes mellitus without complications E11.9 and Bronchitis J40 [facility] [id number] [place] [address] 01633- 3054 Oct, [facility] [id number] [place] [address] 15618- 4508 Oct, [facility] [id number] [place] [address] 25821- 5290 September, Gastroparesis K31.84 ; Type 2 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 and Neuropathy G62.9 [facility] [id number] [place] [address] 48083- 5163 September, Other dorsalgia M54.89 [facility] [id number] [place] [address] 70413- 2817 September, [facility] [id number] [place] [address] 48702- 3547 September, [facility] [id number] [place] [address] 17452- 2929 Aug, Gastroparesis K31.84 and Radicular leg pain M54.10 [facility] [id number] [place] [address] 34584- 4647 Aug, Anorexia R63.0 [facility] [id number] [place] [address] 69164- 8795 Aug, Bronchitis J40 [place] [id number] [place] [address] 43256- 8655 Aug, Back pain M54.9 [place] [id number] [place] [address] 62400- 8386 Aug, Routine gynecological examination Z01.419 ; Routine screening for STI (sexually transmitted infection) Z11.3 and Yeast infection of the vagina B37.3 [place] [id number] [place] [address] 40919- 7798 Jul, Other dorsalgia M54.89 [place] [id number] [place] [address] 60646- 9829 Jul, Diabetes E11.9 and Gastroparesis K31.84 [place] [address] 61244- 9385 28 Jun, 2016 [facility] [id number] [place] [address] 05690- 4268 24 Jun, 2016 Back pain M54.9 [facility] [id number] [place] [address] 15141- 6116 14 Jun, 2016 Neuropathy G62.9 [facility] [address] [place] [address] [id number] 02 Jun, 2016 Encounter for dental examination Z01.20 [facility] [id number] [place] [address] 37298- 9609 Jun, Gastroparesis 536.3 and Anorexia R63.0 [place] [id number] [place] [address] 65410- 9809 May, Other dorsalgia M54.89 [place] [id number] [place] [address] 82989- 1874 May, Periumbilical abdominal pain R10.33 ; Weight loss R63.4 and Gastroparesis K31.84 [facility] [id number] [place] [address] 34713 2546 May, Back pain M54.9 [facility] [id number] [place] [address] 71920 2546 23 Apr, 2016 Anorexia R63.0 [facility] [address] 08827 2546 Apr, Anorexia R63.0 [facility] [address] 37060 2546 16 Apr, 2016 Back pain M54.9 [facility] [address] 28256 2546 Apr, Back pain M54.9 [facility] [id number] [place] [address] 33297 2546 Apr, [facility] [address] 10736 2546 Apr, Bronchitis J40 and Neuropathy G62.9 [facility] [address] 63541 2546 Apr, Neuropathy G62.9 [facility] [address] 79061 2546 05 Apr, 2016 [facility] [id number] [place] [address] 68516 2546 Apr, Back pain M54.9 [facility] [id number] [place] [address] 82886 2546 Mar, Type 2 diabetes mellitus with diabetic autonomic (poly) neuropathy E11.43 [facility] [id number] [place] [address] 88168 2546 Mar, Type 2 diabetes mellitus without complications E11.9 [facility] [id number] [place] [address] 78692 2547 Mar, Neuropathy G62.9 [facility] [id number] [place] [address] 35876- 6587 Mar, [facility] [id number] [place] [address] 51919- 9148 Mar, Breast cancer screening Z12.39 [facility] [id number] [place] [address] 43000- 8310 Mar, Other dorsalgia M54.89 [facility] [id number] [place] [address] 95671- 0131 Feb, [facility] [id number] [place] [address] 13959- 9291 Jan, Neuropathy G62.9 ; Type 2 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 ; Uncomplicated asthma, unspecified asthma severity J45.909 and Encounter for immunization Z23 [place] [id number] [place] [address] 18169- 4005 Jan, [place] [id number] [place] [address] 94783- 6185 Jan, [facility] [id number] [place] [address] 30236- 8994 Dec, [place] [id number] [place] [address] 82583- 9526 Dec, [facility] [id number] [place] [address] 94177- 6031 Nov, [facility] [id number] [place] [address] 52297- 6246 Nov, Back pain M54.9 [facility] [id number] [place] [address] 02967- 8793 Nov, Neuropathy G62.9 ; Mixed hyperlipidemia E78.2 ; Type 2 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 and 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 [place] [address] [place] [address]- 4526 Oct, [facility] [id number] [place] [address] 91905- 5660 Oct, Other dorsalgia M54.89 [facility] [id number] [place] [address] 00251- 8904 September, Primary insomnia F51.01 [facility] [address] 59642- 3438 September, [facility] [id number] [place] [address] 25723- 5453 Aug, Other dorsalgia M54.89 [facility] [id number] [place] [address] 58634- 0172 Jul, [facility] [id number] [place] [address] 14872- 6443 Jul, Other dorsalgia M54.89 [facility] [id number] [place] [address] 20166- 8229 Jul, Diabetes E11.9 ; Back pain M54.9 ; Neuropathy G62.9 and Gastroparesis K31.84 [facility] [id number] [place] [address] 35001- 9596 Jun, [facility] [id number] [place] [address] 13385- 4644 Jun, Other dorsalgia M54.89 [facility] [id number] [place] [address] 57246- 1766 May, [facility] [id number] [place] [address] 36291- 5461 May, Radicular leg pain M54.10 and Other dorsalgia M54.89 [facility] [id number] [place] [address] 73128- 4738 Apr, [facility] [id number] [place] [address] 02322- 2275 Mar, [facility] [address] [address]- 9084 Mar, [facility] [id number] [place] [address] 53366- 3749 Mar, Radicular leg pain M54.10 [facility] [id number] [place] [address] 53926- 7906 Feb, [facility] [id number] [place] [address] 80239- 0554 Feb, [facility] [id number] [place] [address] 32770- 2161 Feb, [facility] [id number] [place] [address] 36027- 6091 Jan, [facility] [id number] [place] [address] 73360- 7389 Jan, IBS (irritable bowel syndrome) 564.1 [facility] [id number] [place] [address] 05016- 4635 Jan, [facility] [id number] [place] [address] 00932- 2924 Jan, [facility] [address] [address]- 8607 Jan, Diabetes mellitus without mention of complication, type II or unspecified type, not stated as uncontrolled 250.00 ; Gastroparesis 536.3 and Hypoacusis 389.9 [facility] [address] [address]- 7367 Jan, [facility] [id number] [place] [address] 06212- 8587 Jan, [facility] [address] [address]- 2358 Dec, [facility] [id number] [address]- 6197 Dec, [facility] [id number] [place] [address] 17591- 4924 Dec, [facility] [id number] [place] [address] 45246- 8731 Dec, Back pain 724.5 and Gastroparesis 536.3 [facility] [id number] [place] [address] 72439- 9903 Nov, [facility] [id number] [place] [address] [id number] Nov, Dental examination V72.2 [facility] [id number] [place] [address] 85609- 7272 Nov, [facility] [id number] [place] [address] 80146- 0508 Nov, [facility] [id number] [place] [address] 18298- 3310 Nov, Depressive disorder, not elsewhere classified 311 and No condition on Lampe II V71.09 [facility] [id number] [place] [address] 68041- 6991 Nov, Diabetes 250.00 and Symptomatic menopausal or female climacteric states 627.2 [facility] [id number] [place] [address] 37404- 4333 Oct, [facility] [id number] [place] [address] 67765- 0690 Oct, Lumbar strain 847.2 [facility] [id number] [place] [address] 13752- 5034 Oct, Gastroparesis 536.3 and Unspecified myalgia and myositis 729.1 [facility] [id number] [place] [address] 92682- 2650 Aug, [facility] [id number] [place] [address] 55713- 2693 Aug, [facility] [place] [facility] [address] [id number] [place] [address]- 1229 Jul, [facility] [place] [facility] [address] [id number] [place] [address]- 97[address] Jul, [facility] [place] [facility] [address] [id number] [place] [address] Jul, [facility] [place] [facility] [address] [id number] [place] [address] Jul, [facility] [place] [facility] [address] [id number] [place] [address] Jul, [facility] [place] [facility] [address] [id number] [place] [address] Jun, [facility] [place] [facility] [address] [facility] [id number] [place] [address] Jun, [facility] [place] [facility] [address] [facility] [id number] [place] [address] Jun, [facility] [place] [facility] [address] [facility] [id number] [place] [address] May, [facility] [place] [facility] [address] [facility] [id number] [place] [address] May, [facility] [place] [facility] [address] [facility] [id number] [place] [address] Mar, [facility] [place] [facility] [address] [id number] [place] [address] Mar, [facility] [place] [facility] [address] [id number] [place] [address] Mar, [facility] [place] [facility] [address] [facility] [id number] [place] [address] Mar, [facility] [place] [facility] [address] [facility] [id number] [place] [address] Mar, [facility] [place] [facility] [address] [id number] [place] [address] Mar, [facility] [address] [id number] [place] [address] Feb, [facility] [place] [facility] [address] [id number] [place] [address] Feb, [facility] [place] [facility] [address] [id number] [place] [address] Nov, [facility] [place] [facility] [address] [id number] [place] [address] Nov, [facility] [place] [facility] [address] [id number] [place] [address] Nov, [facility] [address] [id number] [place] [address] Oct, [facility] [place] [facility] [address] [id number] [place] [address] September, [facility] [address] [id number] [place] [address] Aug, [facility] [place] [facility] [address] [id number] [place] [address] Aug, [facility] [place] [facility] [address] [id number] [place] [address] Aug, [facility] [place] [facility] [address] [id number] [place] [address] Aug, [facility] [place] [facility] [address] [id number] [place] [address] Aug, [facility] [place] [facility] [address] [id number] [place] [address] Aug, [facility] [place] [facility] [address] [id number] [place] [address] Aug, [facility] [place] [facility] [address] [id number] [place] [address] Aug, [facility] [address] [id number] [place] [address] Jul, [facility] [address] [id number] [place] [address] Jul, [facility] [address] [facility] [id number] [place] [address] Jun, [facility] [address] [id number] [place] [address] Jun, [facility] [address] [id number] [place] [address] 09 Jun, 2012 [facility] [address] [facility] [id number] [place] [address] 08 Jun, 2012 [facility] [address] [facility] [id number] [place] [address] Jun, [facility] [address] [facility] [id number] [place] [address] 07 Jun, 2012 [facility] [address] [facility] [id number] [place] [address] 04 Jun, 2012 [facility] [address] [facility] [id number] [place] [address] May, [facility] [address] [facility] [id number] [address] May, [facility] [place] [facility] [address] [id number], [place] [address] May, [facility] [place] [facility] [address] [id number], [place] [address] May, [facility] [place] [facility] [address] [facility] [id number] [place] [address] Mar, [facility] [place] [facility] [address] [facility] [id number] [place] [address] Mar, [facility] [place] [facility] [address] [facility] [id number] [place] [id number] 24 Jan, 2012 IMMUNIZATIONS No Known Immunizations SOCIAL HISTORY Never Assessed REASON FOR VISIT Dronabinol note PLAN OF CARE VITAL SIGNS MEDICATIONS Unknown [...] vomitting-[facility] 03/05/17 Hospitalization History hospital stay at [facility] for stomach issues 2016
--- OUTSIDE RECORDS SUMMARY | 2018-01-27 20:09 | XMS REPORT ---
Author Author HORACE HIGGINS [facility] Address [address] [place] [address] Care Team Providers Care Cap Sewer Name Role Phone HORACE HIGGINS Unavailable PROBLEMS Type Condition ICD9-CM Code INM38-WN Code Onset Dates Condition Status SNOMED Code Problem Weight loss R63.4 Active 643421027 Problem Primary insomnia F51.01 Active 7305662 Problem History of colon polyps Z86.010 Active 537571444 Problem Annual physical exam Z00.00 Active 046574272 Problem Migraine without aura and without status migrainosus, not intractable G43.009 Active 040534376 Problem Reactive depression F32.9 Active 43397744 Problem Asthma exacerbation J45.901 Active 400923312 Problem PTSD (post-traumatic stress disorder) F43.10 Active 73185715 Problem Diabetic polyneuropathy associated with type 2 diabetes mellitus E11.42 Active 78368643 Problem Neuropathy G62.9 Active 113055687 Problem Diabetes E11.9 Active 37829159 Problem Low TSH level R94.6 Active 704451040 Problem Back pain M54.9 Active 910511727 Problem Mixed hyperlipidemia E78.2 Active 697294553 Problem Type 2 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 Active 01133907 Problem Gastroparesis K31.84 Active 635476373 Problem Uncomplicated asthma, unspecified asthma severity J45.909 Active 649952358 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 Active 554065751 Problem Anorexia R63.0 Active 57131639 ALLERGIES No Information ENCOUNTERS Encounter Location Date Diagnosis [facility] [id number] [place] [address] September, [facility] [id number] [address] September, [facility] [id number] [place] [address] September, Low TSH level R94.6 [facility] [address] [place] [address] September, [place] [address] [address] September, Annual physical exam Z00.00 and Migraine without aura and without status migrainosus, not intractable G43.009 [place] [address] 3799 September, Abnormal TSH R94.6 and Dysfunction of left eustachian tube H69.82 [place] [address] 5332 Aug, [place] [address] [id number] 418 Aug, Anorexia R63.0 [facility] [address] [id number] Aug, Dental examination Z01.20 and Xerostomia K11.7 [place] [address] 267826- 5633 Aug, Neuropathy G62.9 [place] [address] 58123- 0064 Aug, [place] [address] 74054- 8677 Aug, Other dorsalgia M54.89 [place] [address] 43831- 8771 Aug, Type 2 diabetes mellitus with diabetic autonomic (poly) neuropathy E11.43 ; Diabetic polyneuropathy associated with type 2 diabetes mellitus E11.42 ; Bronchitis J40 ; Gastroparesis K31.84 and Reactive depression F32.9 [place] [address] 8[address]60- 2129 Aug, PTSD (post-traumatic stress disorder) F43.10 [facility] [id number] [place] [address] 98440 2546 Aug, Other dorsalgia M54.89 and Anorexia R63.0 [facility] [id number] [place] [address] 44381 2546 Jul, [facility] [id number] [place] [address] 10177 2546 Jul, Other dorsalgia M54.89 [facility] [id number] [place] [address] 71017 2546 Jul, [facility] [address] 13969- 5586 Jul, [facility] [id number] [place] [address] 40173 2546 Jul, PTSD (post-traumatic stress disorder) F43.10 [facility] [id number] [place] [address] 29096 2546 Jul, [facility] [id number] [place] [address] 51973 2546 Jul, [facility] [id number] [place] [address] 72955 2546 Jul, [facility] [id number] [place] [address] 73190 2546 Jul, Anorexia R63.0 [facility] [id number] [place] [address] 30218 2546 Jun, [facility] [id number] [place] [address] 02145- 2266 Jun, Vaginal discharge N89.8 ; Visit for gynecologic examination Z01.419 and Pelvic pressure in female R10.2 [facility] [id number] [place] [address] 85656- 4516 Jun, [facility] [id number] [place] [address] 09645- 1122 Jun, Other dorsalgia M54.89 [facility] [id number] [place] [address] 67214- 3994 Jun, [facility] [address] 25515- 5745 Jun, [facility] [address] 69467- 3647 Jun, [facility] [id number] [place] [address] 58451- 2097 May, Back pain M54.9 [facility] [address] 05478- 4455 May, Anorexia R63.0 [facility] [address] 25904- 0399 May, Other dorsalgia M54.89 [facility] [id number] [place] [address] 21813- 3360 May, [facility] [id number] [place] [address] 43136- 7970 May, Bronchitis J40 [facility] [id number] [place] [address] 56140- 3531 May, Type 2 diabetes mellitus with diabetic autonomic (poly) neuropathy E11.43 ; custodial 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 Z79.4 ; Back pain M54.9 and Neuropathy G62.9 [facility] [id number] [place] [address] 87191- 3560 May, Left breast mass N63.20 [facility] [address] 85720- 5863 May, [facility] [id number] [place] [address] 54483- 5863 Apr, Other dorsalgia M54.89 [facility] [id number] [place] [address] 08202- 3803 Apr, Anorexia R63.0 [facility] [id number] [place] [address] 74207- 6403 Apr, Anorexia R63.0 [facility] [id number] [place] [address] 38106- 8616 Apr, Mass of left breast N63.20 [facility] [id number] [place] [address] 86382- 1309 Apr, [facility] [id number] [place] [address] 28647- 0060 Apr, [facility] [id number] [place] [address] 83280- 6570 Apr, Diarrhea of presumed infectious origin A09 [facility] [id number] [place] [address] 81677- 7604 Apr, Encounter for immunization Z23 [facility] [id number] [place] [address] 23067- 1355 Apr, [facility] [id number] [place] [address] 90773- 2714 Mar, Other dorsalgia M54.89 [facility] [id number] [place] [address] 04174- 4298 Mar, [facility] [id number] [place] [address] 28098- 8287 Mar, [facility] [id number] [place] [address] 30473- 2549 Mar, Anorexia R63.0 [facility] [id number] [place] [address] 66379- 8508 Mar, [facility] [id number] [place] [address] 86933- 7199 Mar, Other dorsalgia M54.89 [facility] [id number] [place] [address] 47306- 5376 Mar, [facility] [id number] [place] [address] 43681- 0016 Mar, Encounter for immunization Z23 [facility] [id number] [place] [address] 64835- 0528 Feb, Anorexia R63.0 [facility] [address] 35052- 4423 Feb, Diabetes E11.9 [facility] [address] 87781- 4657 Feb, Back pain M54.9 and Diabetes E11.9 [facility] [address] 13104- 1700 Feb, Diabetes E11.9 [facility] [id number] [place] [address] 72438- 8232 Feb, Neuropathy G62.9 [facility] [address] 28178- 0228 Feb, Encounter for immunization Z23 ; Epigastric pain R10.13 ; Weight loss, abnormal R63.4 and Neuropathy G62.9 [facility] [address] [id number] Feb, [facility] [id number] [place] [address] 55773- 1459 Feb, [facility] [id number] [place] [address] 88025- 5356 Feb, Intractable vomiting with nausea, unspecified vomiting type R11.2 [facility] [address] 28688 -5409 Feb, Chronic nausea R11.0 [facility] [id number] [place] [address] 48203- 6222 Feb, Other dorsalgia M54.89 [facility] [address] 83790 2546 Jan, [facility] [id number] [place] [address] 22325 2546 Jan, [facility] [id number] [place] [address] 54674 2546 Jan, [facility] [address] 13976 2546 Jan, [facility] [address] 11188 2546 Jan, Asthma exacerbation J45.901 ; Bronchitis J40 and Neuropathy G62.9 [facility] [address] 56324 2546 Jan, Anorexia R63.0 [facility] [address] 22539- 7956 Jan, Other dorsalgia M54.89 [facility] [id number] [place] [address] 59921- 6496 Dec, [facility] [id number] [place] [address] 18590- 0422 Dec, [facility] [id number] [place] [address] 64229- 7612 Dec, Anorexia R63.0 [facility] [id number] [place] [address] 86725 2546 Dec, Primary insomnia F51.01 [facility] [id number] [place] [address] 36622 2546 Dec, Other dorsalgia M54.89 [facility] [id number] [place] [address] 56204 2546 Dec, [facility] [id number] [place] [address] 59019 2546 Nov, [facility] [address] 16187- 5630 Nov, [facility] [id number] [place] [address] 11772- 4827 Nov, [facility] [id number] [place] [address] 65351- 0200 Nov, History of colon polyps Z86.010 [facility] [id number] [place] [address] 10980- 9764 Nov, Weight loss R63.4 ; Nausea and vomiting, intractability of vomiting not specified, unspecified vomiting type R11.2 and Abnormal LFTs R79.89 [facility] [address] 60377- 7300 Nov, [facility] [id number] [place] [address] 31453- 8084 Nov, Neuropathy G62.9 and Pain in right knee M25.561 [facility] [id number] [place] [address] 81746- 2147 Nov, Back pain M54.9 [facility] [id number] [place] [address] 83363- 5089 Nov, [facility] [id number] [place] [address] 68236- 7668 Nov, Bronchitis J40 [facility] [id number] [place] [address] 55715- 0781 Nov, Weight loss R63.4 [facility] [id number] [place] [address] 52962- 0040 Oct, Back pain M54.9 [facility] [id number] [place] [address] 40987- 9129 Oct, [facility] [id number] [place] [address] 48885- 8448 14 Oct, 2016 Back pain M54.9 [facility] [id number] [place] [address] 11628- 1638 Oct, Type 2 diabetes mellitus without complications E11.9 and Bronchitis J40 [facility] [id number] [place] [address] 72486- 0261 Oct, [facility] [id number] [place] [address] 61087- 0229 Oct, [facility] [address] 35771- 6304 September, Gastroparesis K31.84 ; Type 2 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 and Neuropathy G62.9 [place] [address] 46824- 2560 September, Other dorsalgia M54.89 [place] [address] 41688- 9208 September, [facility] [address] 87049- 9514 September, [facility] [id number] [place] [address] 30489- 0761 Aug, Gastroparesis K31.84 and Radicular leg pain M54.10 [facility] [id number] [place] [address] 60524- 0372 Aug, Anorexia R63.0 [place] [id number] [place] [address] 70647- 2899 Aug, Bronchitis J40 [facility] [id number] [place] [address] 51361- 9691 Aug, Back pain M54.9 [place] [id number] [place] [address] 52880- 0516 Aug, Routine gynecological examination Z01.419 ; Routine screening for STI (sexually transmitted infection) Z11.3 and Yeast infection of the vagina B37.3 [place] [id number] [place] [address] 11852- 9215 Jul, Other dorsalgia M54.89 [facility] [id number] [place] [address] 38361- 9588 Jul, Diabetes E11.9 and Gastroparesis K31.84 [facility] [id number] [place] [address] 25241- 3533 Jun, [facility] [address] 29881- 3322 Jun, Back pain M54.9 [facility] [address] 96966- 2908 Jun, Neuropathy G62.9 [facility] [address] [id number] Jun, 2016 Encounter for dental examination Z01.20 [facility] [address] 46148- 9494 Jun, Gastroparesis 536.3 and Anorexia R63.0 [facility] [address] 56504- 5206 May, Other dorsalgia M54.89 [facility] [id number] [place] [address] 56222- 4589 May, Periumbilical abdominal pain R10.33 ; Weight loss R63.4 and Gastroparesis K31.84 [facility] [id number] [place] [address] 68417- 9728 May, Back pain M54.9 [facility] [id number] [place] [address] 76507- 2657 Apr, Anorexia R63.0 [facility] [address] 84457- 3900 Apr, Anorexia R63.0 [facility] [id number] [place] [address] 71827- 1774 Apr, Back pain M54.9 [place] [id number] [place] [address] 99198- 5940 15 Apr, 2016 Back pain M54.9 [facility] [id number] [place] [address] 69672- 3986 Apr, [facility] [id number] [place] [address] 67378- 7793 Apr, Bronchitis J40 and Neuropathy G62.9 [facility] [id number] [place] [address] 51669- 6519 Apr, Neuropathy G62.9 [facility] [id number] [place] [address] 18306- 7977 Apr, [facility] [id number] [place] [address] 91451- 5723 Apr, Back pain M54.9 [facility] [id number] [place] [address] 98463- 6813 Mar, Type 2 diabetes mellitus with diabetic autonomic (poly) neuropathy E11.43 [facility] [id number] [place] [address] 11393- 3969 Mar, Type 2 diabetes mellitus without complications E11.9 [facility] [id number] [place] [address] 28861- 2236 Mar, Neuropathy G62.9 [facility] [id number] [place] [address] 11141- 5273 Mar, [facility] [id number] [place] [address] 81390- 3614 Mar, Breast cancer screening Z12.39 [facility] [id number] [place] [address] 52223- 6809 Mar, Other dorsalgia M54.89 [facility] [id number] [place] [address] 28057- 2539 Feb, [facility] [id number] [place] [address] 24172- 6907 30 Jan, 2016 Neuropathy G62.9 ; Type 2 diabetes mellitus with diabetic autonomic (poly)neuropathy E11.43 ; Uncomplicated asthma, unspecified asthma severity J45.909 and Encounter for immunization Z23 [facility] [id number] [place] [address] 74363- 7946 09 Jan, 2016 [facility] [id number] [place] [address] 73262- 1640 Jan, [facility] [id number] [place] [address] 15150- 8230 Dec, [facility] [id number] [place] [address] 08399- 3713 Dec, [facility] [id number] [place] [address] 02974- 1999 Nov, [place] [id number] [place] [address] 91119- 8305 Nov, Back pain M54.9 [place] [id number] [place] [address] 61801- 0630 Nov, Neuropathy G62.9 ; Mixed hyperlipidemia E78.2 ; Type 2 diabetes mellitus with diabetic autonomic (poly)neuropathy E11.43 and custodial 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 Z79.4 [place] [id number] [place] [address] 23923- 3277 Oct, [place] [id number] [place] [address] 20436- 3290 Oct, Other dorsalgia M54.89 [place] [id number] [place] [address] 26979- 3351 September, Primary insomnia F51.01 [facility] [id number] [place] [address] 30466- 3393 September, [facility] [id number] [place] [address] 09569- 1216 Aug, Other dorsalgia M54.89 [facility] [id number] [place] [address] 73395- 0273 Jul, [facility] [address] 84875- 7383 Jul, Other dorsalgia M54.89 [facility] [address] 27772- 5022 Jul, Diabetes E11.9 ; Back pain M54.9 ; Neuropathy G62.9 and Gastroparesis K31.84 [facility] [address] 90821- 8449 Jun, [facility] [address] 79810- 3007 Jun, Other dorsalgia M54.89 [facility] [address] 01063- 9195 May, [facility] [address] 82684- 7842 May, Radicular leg pain M54.10 and Other dorsalgia M54.89 [facility] [id number] [place] [address] 96611- 4755 Apr, [facility] [id number] [place] [address] 65814- 5261 Mar, [facility] [address] 58683- 8466 Mar, [facility] [id number] [place] [address] 34562- 2612 Mar, Radicular leg pain M54.10 [facility] [id number] [place] [address] 01535- 1504 Feb, [facility] [id number] [place] [address] 30176- 4462 Feb, [facility] [address] [place] [address]- 7870 Feb, [facility] [id number] [place] [address] 91299- 5532 Jan, [facility] [id number] [place] [address] 34971- 5739 Jan, IBS (irritable bowel syndrome) 564.1 [facility] [address] 28187- 7558 10 Jan, 2015 [facility] [id number] [place] [address] 59020- 9212 Jan, [facility] [address] [address]- [address] Jan, Diabetes mellitus without mention of complication, type II or unspecified type, not stated as uncontrolled 250.00 ; Gastroparesis 536.3 and Hypoacusis 389.9 [facility] [id number] [place] [address] 22193- 1350 Jan, [facility] [id number] [place] [address] 93144- 7327 Jan, [facility] [id number] [place] [address] 79911- 8483 Dec, [facility] [id number] [place] [address] 80538- 4872 Dec, [facility] [id number] [place] [address] 14416- 8768 Dec, [facility] [id number] [place] [address] 89180- 5729 Dec, Back pain 724.5 and Gastroparesis 536.3 [facility] [id number] [place] [address] 84032- 9022 Nov, [facility] [id number] [place] [address] [id number] Nov, Dental examination V72.2 [facility] [id number] [address] Nov, [facility] [id number] [place] [address] 90937- 1514 Nov, [facility] [id number] [place] [address] Nov, Depressive disorder, not elsewhere classified 311 and No condition on [place] II V71.09 [facility] [id number] [place] [address] 06724- 9916 Nov, Diabetes 250.00 and Symptomatic menopausal or female climacteric states 627.2 [facility] [id number] [place] [address] 25214- 5744 Oct, [facility] [id number] [place] [address] 87170- 6148 Oct, Lumbar strain 847.2 [facility] [id number] [place] [address] 33132- 2080 Oct, Gastroparesis 536.3 and Unspecified myalgia and myositis 729.1 [facility] [id number] [place] [address] Aug, [facility] [id number] [place] [address] Aug, [facility] [id number] [place] [address] Jul, [facility] [id number] [place] [address] Jul, [facility] [id number] [place] [address] 50949- 6487 Jul, [facility] [id number] [place] [address] Jul, [facility] [id number] [place] [address] 96012- 7232 Jul, [facility] [place] [facility] [address] [id number] [place] [address] Jun, [facility] [place] [facility] [address] [id number] [place] [address]- 9129 Jun, [facility] [place] [facility] [address] [id number] [place] [address]- 8627 Jun, [facility] [place] [facility] [address] [address] [id number] [place] [address] May, [facility] [place] [facility] [address] [id number] [place] [address] May, [facility] [place] [facility] [address] [id number] [place] [address] Mar, [facility] [place] [facility] [address] [id number] [place] [address] Mar, [facility] [place] [facility] [address] [id number] [place] [address] Mar, [facility] [place] [facility] [address] [id number] [place] [address] Mar, [facility] [place] [facility] [address] [id number] [place] [address] Mar, [facility] [place] [facility] [address] [id number] [place] [address] Mar, [facility] [place] [facility] [address] [id number] [place] [address] Feb, [facility] [place] [facility] [address] [id number] [place] [address] Feb, [facility] [place] [facility] [address] [id number] [place] [address] Nov, [facility] [place] [facility] [address] [id number] [place] [address] Nov, [facility] [place] [facility] [address] [id number] [place] [address] 11 Nov, 2012 [facility] [address] [id number] [place] [address] Oct, [facility] [address] [id number] [place] [address] September, [facility] [address] [id number] [place] [address] Aug, [facility] [address] [id number] [place] [address] 15 Aug, 2012 [facility] [address] [id number] [place] [address] Aug, [facility] [address] [id number] [place] [address] Aug, [facility] [address] [id number] [place] [address] Aug, [facility] [address] [id number] [place] [address] Aug, [facility] [address] [id number] [place] [address] Aug, [facility] [address] [id number] [place] [address] Aug, [facility] [address] [id number] [place] [address] Jul, [facility] [address] [id number] [place] [address] Jul, [facility] [address] [id number] [place] [address] Jun, [facility] [address] [id number] [place] [address] Jun, [facility] [address] [id number] [place] [address] Jun, [facility] [address] [id number] [address] Jun, [facility] [id number] [place] [address] Jun, [facility] [id number] [place] [address] Jun, [facility] [id number] [place] [address]- [address] Jun, [facility] [id number] [place] [address] May, [facility] [id number] [place] [address] May, [facility] [id number] [place] [address]- [address] May, [facility] [id number] [place] [address]- [address] May, [facility] [id number], [place] [address] Mar, [facility] [id number], [place] [address] Mar, [facility] [address] [id number] [address] Jan, IMMUNIZATIONS No Known Immunizations SOCIAL HISTORY Never Assessed REASON FOR VISIT Lab (walk-in) PLAN OF CARE VITAL SIGNS MEDICATIONS Unknown Medications RESULTS Name Result Date Reference Range GLUCOSE, SERUM 2017-03-20 Glucose, Serum 334 65-99 C-PEPTIDE, SERUM 2017-03-20 C-Peptide, Serum 2.4 1.1-4.4 PROCEDURES Procedure Date Ordered Result Body Site LAB NOT BILLED BY [facility] Mar 20, 2017 VENIPUNCT, ROUTINE* Mar 20, 2017 INSTRUCTIONS MEDICATIONS ADMINISTERED No Known Medications [...]
--- OUTSIDE RECORDS SUMMARY | 2018-01-27 20:10 | XMS REPORT ---
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 Active 144552411 Problem PTSD (post-traumatic stress disorder) F43.10 Active 00214111 Problem Asthma exacerbation J45.901 Active 459091327 Problem Weight loss R63.4 Active 608245344 Problem Anorexia R63.0 Active 98146898 Problem Primary insomnia F51.01 Active 3060022 Problem History of colon polyps Z86.010 Active 872482797 Problem Neuropathy G62.9 Active 269996813 Problem Diabetes E11.9 Active 00616458 Problem Depressive disorder, not elsewhere classified 311 Active 09646686 Problem Gastroparesis K31.84 Active 861949020 Problem Back pain M54.9 Active 095626982 Problem Mixed hyperlipidemia E78.2 Active 044670128 ALLERGIES No Information ENCOUNTERS Encounter Location Date Diagnosis [facility] [id number] [id number] Aug, [facility] [address], [place] [address]30 Aug, [facility] [id number] [place] [address] 01217- 1071 Aug, [facility] [address], [place] [address] 4489 Aug, [facility] [id number] [place] [address] 20046- 4915 Jul, [facility] [id number] [place] [address] 92803- 6856 Jul, Other dorsalgia M54.89 [facility] [id number] [place] [address] 77939- 6126 Jul, [facility] [id number] [place] [address] 86984 2546 Jul, [facility] [id number] [place] [address] 14591 2546 Jul, PTSD (post-traumatic stress disorder) F43.10 [facility] [id number] [place] [address] 53070- 4626 Jul, [facility] [id number] [place] [address] 40245- 0986 Jul, [facility] [id number] [place] [address] 45816- 9666 Jul, [facility] [id number] [place] [address] 00513 2546 Jul, Anorexia R63.0 [facility] [id number] [place] [address] 34584- 7636 Jun, [facility] [id number] [place] [address] 05008- 0146 Jun, Vaginal discharge N89.8 ; Visit for gynecologic examination Z01.419 and Pelvic pressure in female R10.2 [facility] [id number] [place] [address] 44835 2546 Jun, [facility] [id number] [place] [address] 93260- 7486 Jun, Other dorsalgia M54.89 [facility] [id number] [place] [address] 36837- 7066 16 Jun, 2017 [facility] [id number] [place] [address] 24715- 7771 Jun, [facility] [address] 82630- 9687 Jun, [facility] [address] 47901- 3173 May, Back pain M54.9 [facility] [address] 58910- 8285 May, Anorexia R63.0 [facility] [address] 88186- 8729 May, Other dorsalgia M54.89 [facility] [address] 28690- 6968 May, [facility] [address] 91596- 1543 May, Bronchitis J40 [facility] [address] 24942- 3331 May, Type 2 diabetes mellitus with diabetic autonomic (poly) neuropathy E11.43 ; correction 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 Z79.4 ; Back pain M54.9 and Neuropathy G62.9 [facility] [id number] [place] [address] 71129- 8422 May, Left breast mass N63.20 [facility] [address] 40047- 5582 May, [facility] [id number] [place] [address] 69658- 8679 Apr, Other dorsalgia M54.89 [facility] [address] 94206- 1556 Apr, Anorexia R63.0 [facility] [address] 32220- 4349 Apr, Anorexia R63.0 [facility] [address] [place] [address]- 5833 Apr, Mass of left breast N63.20 [facility] [id number] [place] [address] 90978- 5624 Apr, [facility] [address] 63956- 0120 Apr, [facility] [address] 44742- 7210 Apr, Diarrhea of presumed infectious origin A09 [facility] [address] 80151- 6862 Apr, Encounter for immunization Z23 [facility] [address] 64146- 9663 Apr, [facility] [address] 59878- 4552 Mar, Other dorsalgia M54.89 [facility] [id number] [place] [address] 75068- 2147 Mar, [facility] [id number] [place] [address] 92394- 3144 Mar, [facility] [id number] [place] [address] 56810- 1054 Mar, Anorexia R63.0 [facility] [id number] [place] [address] 87304- 2387 Mar, [facility] [id number] [place] [address] 33354- 2543 Mar, Other dorsalgia M54.89 [facility] [id number] [place] [address] 02664- 0646 Mar, [facility] [id number] [place] [address] 57899- 0818 Mar, Encounter for immunization Z23 [facility] [address] 92587- 6016 Feb, Anorexia R63.0 [facility] [id number] [place] [address] 97436- 2463 Feb, Diabetes E11.9 [facility] [id number] [place] [address] 07719- 1859 Feb, Back pain M54.9 and Diabetes E11.9 [facility] [address] 71147- 2952 Feb, Diabetes E11.9 [facility] [address] 91165- 6953 Feb, Neuropathy G62.9 [facility] [address] 24353- 2387 Feb, Encounter for immunization Z23 ; Epigastric pain R10.13 ; Weight loss, abnormal R63.4 and Neuropathy G62.9 [facility] [address] [id number] Feb, [facility] [address] 79987- 4745 Feb, [facility] [address] 15875- 6673 Feb, Intractable vomiting with nausea, unspecified vomiting type R11.2 [facility] [id number] [place] [address] 58185 -3906 Feb, Chronic nausea R11.0 [facility] [id number] [place] [address] 08789- 1533 Feb, Other dorsalgia M54.89 [facility] [address] 06217- 0005 Jan, [facility] [id number] [place] [address] 60718- 4971 Jan, [facility] [address] 19005- 3426 Jan, [facility] [id number] [place] [address] 03871 2546 Jan, [facility] [id number] [place] [address] 67431 2546 Jan, Asthma exacerbation J45.901 ; Bronchitis J40 and Neuropathy G62.9 [facility] [address] 75145 2546 Jan, Anorexia R63.0 [facility] [id number] [place] [address] 22607- 2546 Jan, Other dorsalgia M54.89 [facility] [id number] [place] [address] 88983- 4226 Dec, [facility] [id number] [place] [address] 72406- 7916 Dec, [facility] [id number] [place] [address] 77110 2546 Dec, Anorexia R63.0 [facility] [id number] [place] [address] 72695- 4006 Dec, Primary insomnia F51.01 [facility] [id number] [place] [address] 11958 2546 Dec, Other dorsalgia M54.89 [facility] [id number] [place] [address] 90074 2546 Dec, [facility] [id number] [place] [address] 56452 2546 Nov, [facility] [id number] [place] [address] 26236 2546 Nov, [facility] [id number] [place] [address] 58509 2546 Nov, [facility] [id number] [place] [address] 44632 8359 Nov, History of colon polyps Z86.010 [facility] [id number] [place] [address] 34593- 7761 Nov, Weight loss R63.4 ; Nausea and vomiting, intractability of vomiting not specified, unspecified vomiting type R11.2 and Abnormal LFTs R79.89 [facility] [id number] [place] [address] 31257- 9995 Nov, [facility] [address] 58693- 2364 Nov, Neuropathy G62.9 and Pain in right knee M25.561 [address] 62828- 1262 Nov, Back pain M54.9 [facility] [id number] [place] [address] 70802- 7339 10 Nov, 2016 [facility] [address] 57951- 8120 Nov, Bronchitis J40 [facility] [id number] [place] [address] 92750- 2587 03 Nov, 2016 Weight loss R63.4 [facility] [id number] [place] [address] 84937- 7321 Oct, Back pain M54.9 [facility] [id number] [place] [address] 64079- 7475 16 Oct, 2016 [facility] [id number] [place] [address] 76361- 8790 14 Oct, 2016 Back pain M54.9 [facility] [address] 81287- 6461 13 Oct, 2016 Type 2 diabetes mellitus without complications E11.9 and Bronchitis J40 [facility] [id number] [place] [address] 98115- 4694 05 Oct, 2016 [facility] [id number] [place] [address] 26708- 6185 Oct, [address] [place] [id number] [place] [address] 42964- 3011 September, Gastroparesis K31.84 ; Type 2 diabetes mellitus with diabetic autonomic (poly)neuropathy E11.43 and Neuropathy G62.9 [address] [id number] [place] [address] 60729- 2882 September, Other dorsalgia M54.89 [address] [id number] [place] [address] 41486- 4247 September, [address] [place] [id number] [place] [address] 75624- 6935 September, [address] [place] [id number] [place] [address] 74301- 4604 Aug, Gastroparesis K31.84 and Radicular leg pain M54.10 [place] [facility] [id number] [place] [address] 72424- 5990 Aug, Anorexia R63.0 [place] [facility] [id number] [place] [address] 20088- 9992 Aug, Bronchitis J40 [address] [id number] [place] [address] 00400- 1336 Aug, Back pain M54.9 [place] [facility] [id number] [place] [address] 29802- 9347 Aug, Routine gynecological examination Z01.419 ; Routine screening for STI (sexually transmitted infection) Z11.3 and Yeast infection of the vagina B37.3 [place] [id number] [place] [address] 31601- 4476 Jul, Other dorsalgia M54.89 [place] [id number] [place] [address] 78080- 4716 Jul, Diabetes E11.9 and Gastroparesis K31.84 [address] [address] 12062- 4487 Jun, [facility] [address] 32272- 7582 24 Jun, 2016 Back pain M54.9 [facility] [address] 20216- 3813 14 Jun, 2016 Neuropathy G62.9 [facility] [address] [id number] 02 Jun, 2016 Encounter for dental examination Z01.20 [facility] [address] 78424- 9246 Jun, Gastroparesis 536.3 and Anorexia R63.0 [facility] [address] 75851- 4484 May, Other dorsalgia M54.89 [facility] [address] 51329- 7417 May, Periumbilical abdominal pain R10.33 ; Weight loss R63.4 and Gastroparesis K31.84 [facility] [address] 80852- 0838 May, Back pain M54.9 [facility] [address] 83421- 7183 Apr, Anorexia R63.0 [facility] [address] 81356- 1550 Apr, Anorexia R63.0 [facility] [address] 14906- 6367 Apr, Back pain M54.9 [facility] [address] 47530- 5361 Apr, Back pain M54.9 [facility] [address] 21727- 0793 Apr, [facility] [id number] [place] [address] 88751- 1783 Apr, Bronchitis J40 and Neuropathy G62.9 [facility] [address] 34464- 5767 Apr, Neuropathy G62.9 [address] [address] 20400- 3558 Apr, [place] [address] 51759- 7011 Apr, Back pain M54.9 [place] [address] 14512- 2276 Mar, Type 2 diabetes mellitus with diabetic autonomic (poly) neuropathy E11.43 [address] [address] 82828- 1701 Mar, Type 2 diabetes mellitus without complications E11.9 [address] [address] 91363- 7698 Mar, Neuropathy G62.9 [address] [address] 92676- 3739 Mar, [place] [id number] [place] [address] 14035- 8589 Mar, Breast cancer screening Z12.39 [address] [address] 49703- 0151 Mar, Other dorsalgia M54.89 [place] [id number] [place] [address] 34517- 6690 Feb, [place] [address] 56313- 3948 Jan, Neuropathy G62.9 ; Type 2 diabetes mellitus with diabetic autonomic (poly)neuropathy E11.43 ; Uncomplicated asthma, unspecified asthma severity J45.909 and Encounter for immunization Z23 [address] [address] 32924- 6292 Jan, [facility] [address], [place] [address]- 0894 Jan, [facility] [address] [place] [address] 98820- 7519 Dec, [facility] [address] [place] [address] 60335- 2510 Dec, [facility] [id number] [place] [address] 05834- 2129 Nov, [facility] [address] [place] [address] 48224- 3138 Nov, Back pain M54.9 [facility] [id number] [place] [address] 99548- 6786 Nov, Neuropathy G62.9 ; Mixed hyperlipidemia E78.2 ; Type 2 diabetes mellitus with diabetic autonomic (poly)neuropathy E11.43 and correction 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 Z79.4 [facility] [address], [place] [address]- 3798 Oct, [facility] [id number] [place] [address] 58417- 7108 Oct, Other dorsalgia M54.89 [facility] [id number] [place] [address] 09936- 9754 September, Primary insomnia F51.01 [facility] [address], [place] [address]- 5666 September, [facility] [address], [place] [address]- 2837 Aug, Other dorsalgia M54.89 [facility] [address], [place] [address]- 7614 Jul, [facility] [address], [place] [address]- 3711 Jul, Other dorsalgia M54.89 [facility] [id number] [place] [address] 34028- 0014 Jul, Diabetes E11.9 ; Back pain M54.9 ; Neuropathy G62.9 and Gastroparesis K31.84 [facility] [id number] [place] [address] 21808- 1488 Jun, [facility] [address] 96969- 4121 Jun, Other dorsalgia M54.89 [facility] [id number] [place] [address] 33517- 1028 May, [facility] [address] 13497- 4166 May, Radicular leg pain M54.10 and Other dorsalgia M54.89 [facility] [id number] [place] [address] 36402- 0818 Apr, [facility] [id number] [place] [address] 60329- 7723 Mar, [facility] [id number] [place] [address] 23916- 6399 Mar, [facility] [id number] [place] [address] 89936- 1036 Mar, Radicular leg pain M54.10 [facility] [id number] [place] [address] 47599- 7289 Feb, [facility] [id number] [place] [address] 18235- 1164 Feb, [facility] [id number] [place] [address] 06878- 2646 Feb, [facility] [id number] [place] [address] 70635- 8090 Jan, [facility] [address] 81393- 5269 Jan, IBS (irritable bowel syndrome) 564.1 [facility] [address] [place] [address] 25053- 0590 Jan, [facility] [id number] [place] [address] 95762- 0925 Jan, [facility] [id number] [place] [address] 63514- 5141 Jan, Diabetes mellitus without mention of complication, type II or unspecified type, not stated as uncontrolled 250.00 ; Gastroparesis 536.3 and Hypoacusis 389.9 [facility] [id number] [place] [address] 77547- 5725 Jan, [facility] [id number] [place] [address] 04022- 8439 Jan, [facility] [id number] [place] [address] 28433- 1887 Dec, [facility] [id number] [place] [address] 66054- 5410 Dec, [facility] [id number] [place] [address] 04678- 4791 Dec, [facility] [address] [place] [address] 82684- 7181 Dec, Back pain 724.5 and Gastroparesis 536.3 [facility] [id number] [place] [address] 27064- 9270 Nov, [facility] [address] [id number] Nov, Dental examination V72.2 [facility] [address], [place] [address]- 7021 Nov, [facility] [address], [place] [address]- 9330 Nov, [facility] [address] [address]- 6625 Nov, Depressive disorder, not elsewhere classified 311 and No condition on Savannah II V71.09 [facility] [address] 3221 Nov, Diabetes 250.00 and Symptomatic menopausal or female climacteric states 627.2 [facility] [id number] [place] [address] 87712- 7497 Oct, [facility] [id number] [place] [address] 37703- 4680 Oct, Lumbar strain 847.2 [facility] [id number] [place] [address] 082714- 6608 Oct, Gastroparesis 536.3 and Unspecified myalgia and myositis 729.1 [facility] [id number] [place] [address] 21828- 5293 Aug, [facility] [address], [place] [address]- 5325 Aug, [facility] [address], [place] [address]- 5392 Jul, [facility] [address], [place] [address]- 1119 Jul, [facility] [address], [place] [address]- 3189 Jul, [facility] [address], [place] [address]- 0979 Jul, [facility] [address] 7339 Jul, [facility] [address] 8531 Jun, [facility] [address] 2770 Jun, [facility] [place] [facility] [address] [id number] [place] [address]- 9071 Jun, [facility] [place] [facility] [address] [id number] [place] [address] May, [facility] [place] [facility] [address] [id number] [place] [address] May, [facility] [place] [facility] [address] [id number] [place] [address] Mar, [facility] [place] [facility] [address] [id number] [place] [address] Mar, [facility] [place] [facility] [address] [id number] [place] [address] Mar, [facility] [place] [facility] [address] [id number] [place] [address] Mar, [facility] [place] [facility] [address] [id number] [place] [address] Mar, [facility] [place] [facility] [address] [id number] [place] [address] Mar, [facility] [place] [facility] [address] [id number], [place] [address] Feb, [facility] [place] [facility] [address] [id number], [place] [address] Feb, [facility] [place] [facility] [address] [id number], [place] [address] Nov, [facility] [place] [facility] [address] [id number] [place] [address] Nov, [facility] [place] [facility] [address] [id number], [place] [address] Nov, [facility] [place] [facility] [address] [id number], [place] [address] Oct, [facility] [place] [facility] [address] [id number], [place] [address] September, [facility] [address] [id number] [place] [address] Aug, [facility] [address] [id number] [place] [address] 15 Aug, 2012 [facility] [address] [facility] [id number] [place] [address] Aug, [facility] [address] [id number] [place] [address] Aug, [facility] [address] [id number] [place] [address] Aug, [facility] [address] [facility] [id number] [place] [address] Aug, [facility] [id number] [place] [place] [address] Aug, [facility] [address] [id number] [place] [address] Aug, [facility] [address] [id number] [place] [address] Jul, [facility] [address] [id number] [place] [address] Jul, [facility] [address] [id number] [place] [address] Jun, [facility] [place] [facility] [address] [id number] [place] [address] Jun, [facility] [place] [facility] [address] [id number] [place] [address] Jun, [facility] [place] [facility] [address] [id number], [place] [address] Jun, [facility] [address] [facility] [id number], [place] [address] 07 Jun, 2012 [facility] [address] [facility] [id number], [place] [address] Jun, [facility] [address] [id number], [place] [address] Jun, [facility] [address] [id number], [place] [address] May, [facility] [id number], [place] [address] May, [facility] [id number], [place] [address] May, [facility] [id number], [place] [address] May, [facility] [id number], [place] [address] Mar, [facility] [address] [id number], [place] [address] Mar, [facility] [address] [id number] [id number] Jan, IMMUNIZATIONS No Known Immunizations SOCIAL HISTORY Never Assessed REASON FOR VISIT Needs referral PLAN OF CARE VITAL SIGNS MEDICATIONS Unknown Medications RESULTS No Results PROCEDURES No Known procedures INSTRUCTIONS MEDICATIONS ADMINISTERED No Known Medications MEDICAL (GENERAL) HISTORY Type Description Date Medical History umbilical hernia Medical History pulmonary emboli Medical History asthma Medical History depression Medical History anxiety Medical History diabetes type II Medical History bowel obstruction Medical History HSV1 Surgical History bowel obstruction 2009 Surgical History umblical hernia x 8 Surgical History appendectomy 1987 Surgical History hysterectomy 2007 Surgical History EGD 2017 Hospitalization History Nervous breakdown 2009 Hospitalization History pulmonary emboli and pneumonia 2014 Hospitalization History High blood sugar 2016 Hospitalization History DKA, vomitting-VC 03/05/17 Hospitalization History hospital stay at [facility] for stomach issues 2016
--- OUTSIDE RECORDS SUMMARY | 2018-01-27 20:10 | XMS REPORT ---
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 798955560 Problem PTSD (post-traumatic stress disorder) F43.10 Active 36504182 Problem Asthma exacerbation J45.901 Active 923881309 Problem Weight loss R63.4 Active 705592444 Problem Anorexia R63.0 Active 01991283 Problem Primary insomnia F51.01 Active 8886618 Problem History of colon polyps Z86.010 Active 291898907 Problem Neuropathy G62.9 Active 301388045 Problem Diabetes E11.9 Active 54847216 Problem Depressive disorder, not elsewhere classified 311 Active 93141746 Problem Gastroparesis K31.84 Active 837033285 Problem Back pain M54.9 Active 143750636 Problem Mixed hyperlipidemia E78.2 Active 498120506 ALLERGIES No Information ENCOUNTERS Encounter Location Date Diagnosis [facility] [id number] [id number] Aug, [facility] [address], [place] [address] Aug, [facility] [id number] [place] [address] 57150- 7025 Aug, [facility] [address], [place] [address] 7836 Aug, [facility] [id number] [place] [address] 24805- 0607 Jul, [facility] [id number] [place] [address] 18042- 1306 Jul, Other dorsalgia M54.89 [facility] [id number] [place] [address] 04421- 4426 Jul, [facility] [id number] [place] [address] 80412 2546 Jul, [facility] [id number] [place] [address] 06485 2546 Jul, PTSD (post-traumatic stress disorder) F43.10 [facility] [id number] [place] [address] 89776- 3936 Jul, [facility] [id number] [place] [address] 74209- 3526 Jul, [facility] [id number] [place] [address] 08773- 5836 Jul, [facility] [id number] [place] [address] 06692 2546 Jul, Anorexia R63.0 [facility] [id number] [place] [address] 91886- 7976 Jun, [facility] [id number] [place] [address] 72612- 7146 Jun, Vaginal discharge N89.8 ; Visit for gynecologic examination Z01.419 and Pelvic pressure in female R10.2 [facility] [id number] [place] [address] 18677 2546 Jun, [facility] [id number] [place] [address] 68142- 3136 Jun, Other dorsalgia M54.89 [facility] [id number] [place] [address] 19610- 4856 16 Jun, 2017 [facility] [id number] [place] [address] 40344- 3960 Jun, [facility] [address] 20799- 5738 Jun, [facility] [address] 56930- 8120 May, Back pain M54.9 [facility] [address] 35722- 8458 May, Anorexia R63.0 [facility] [address] 06213- 1306 May, Other dorsalgia M54.89 [facility] [address] 42733- 0679 May, [facility] [address] 24660- 1457 May, Bronchitis J40 [facility] [address] 14882- 1864 May, Type 2 diabetes mellitus with diabetic autonomic (poly) neuropathy E11.43 ; half-way 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 Z79.4 ; Back pain M54.9 and Neuropathy G62.9 [facility] [id number] [place] [address] 79116- 4986 May, Left breast mass N63.20 [facility] [address] 41278- 4547 May, [facility] [id number] [place] [address] 92611- 5653 Apr, Other dorsalgia M54.89 [facility] [address] 01519- 8456 Apr, Anorexia R63.0 [facility] [address] 05852- 5818 Apr, Anorexia R63.0 [facility] [address] [place] [address]- 5336 Apr, Mass of left breast N63.20 [facility] [id number] [place] [address] 08170- 1324 Apr, [facility] [address] 39593- 1042 Apr, [facility] [address] 09198- 1519 Apr, Diarrhea of presumed infectious origin A09 [facility] [address] 00077- 7699 Apr, Encounter for immunization Z23 [facility] [address] 64642- 2236 Apr, [facility] [address] 59442- 0617 Mar, Other dorsalgia M54.89 [facility] [id number] [place] [address] 15325- 3080 Mar, [facility] [id number] [place] [address] 60493- 7875 Mar, [facility] [id number] [place] [address] 17808- 7389 Mar, Anorexia R63.0 [facility] [id number] [place] [address] 81822- 4526 Mar, [facility] [id number] [place] [address] 60897- 2547 Mar, Other dorsalgia M54.89 [facility] [id number] [place] [address] 26457- 0891 Mar, [facility] [id number] [place] [address] 06531- 2273 Mar, Encounter for immunization Z23 [facility] [address] 42405- 8095 Feb, Anorexia R63.0 [facility] [id number] [place] [address] 64988- 2051 Feb, Diabetes E11.9 [facility] [id number] [place] [address] 38915- 7063 Feb, Back pain M54.9 and Diabetes E11.9 [facility] [address] 73247- 3896 Feb, Diabetes E11.9 [facility] [address] 56328- 1953 Feb, Neuropathy G62.9 [facility] [address] 50289- 5020 Feb, Encounter for immunization Z23 ; Epigastric pain R10.13 ; Weight loss, abnormal R63.4 and Neuropathy G62.9 [facility] [address] [id number] Feb, [facility] [address] 51769- 3806 Feb, [facility] [address] 14890- 9912 Feb, Intractable vomiting with nausea, unspecified vomiting type R11.2 [facility] [id number] [place] [address] 07577 -8732 Feb, Chronic nausea R11.0 [facility] [id number] [place] [address] 40231- 1837 Feb, Other dorsalgia M54.89 [facility] [address] 25482- 3393 Jan, [facility] [id number] [place] [address] 73503- 6526 Jan, [facility] [address] 48482- 8430 Jan, [facility] [id number] [place] [address] 01083 2546 Jan, [facility] [id number] [place] [address] 73361 2546 Jan, Asthma exacerbation J45.901 ; Bronchitis J40 and Neuropathy G62.9 [facility] [address] 53234 2546 Jan, Anorexia R63.0 [facility] [id number] [place] [address] 25606- 2546 Jan, Other dorsalgia M54.89 [facility] [id number] [place] [address] 03637- 0676 Dec, [facility] [id number] [place] [address] 35928- 0456 Dec, [facility] [id number] [place] [address] 18781 2546 Dec, Anorexia R63.0 [facility] [id number] [place] [address] 02821- 4576 Dec, Primary insomnia F51.01 [facility] [id number] [place] [address] 08437 2546 Dec, Other dorsalgia M54.89 [facility] [id number] [place] [address] 31366 2546 Dec, [facility] [id number] [place] [address] 86840 2546 Nov, [facility] [id number] [place] [address] 40112 2546 Nov, [facility] [id number] [place] [address] 49049 2546 Nov, [facility] [id number] [place] [address] 75578 0908 Nov, History of colon polyps Z86.010 [facility] [id number] [place] [address] 73908- 8186 Nov, Weight loss R63.4 ; Nausea and vomiting, intractability of vomiting not specified, unspecified vomiting type R11.2 and Abnormal LFTs R79.89 [facility] [id number] [place] [address] 81734- 0035 Nov, [facility] [address] 66687- 3675 Nov, Neuropathy G62.9 and Pain in right knee M25.561 [address] 63497- 5293 Nov, Back pain M54.9 [facility] [id number] [place] [address] 85974- 2218 10 Nov, 2016 [facility] [address] 50378- 5382 Nov, Bronchitis J40 [facility] [id number] [place] [address] 50749- 5220 03 Nov, 2016 Weight loss R63.4 [facility] [id number] [place] [address] 33640- 3601 Oct, Back pain M54.9 [facility] [id number] [place] [address] 68265- 6724 16 Oct, 2016 [facility] [id number] [place] [address] 51012- 0190 14 Oct, 2016 Back pain M54.9 [facility] [address] 66734- 2511 13 Oct, 2016 Type 2 diabetes mellitus without complications E11.9 and Bronchitis J40 [facility] [id number] [place] [address] 12492- 0293 05 Oct, 2016 [facility] [id number] [place] [address] 39966- 6271 Oct, [address] [facility] [id number] [place] [address] 03124- 3504 September, Gastroparesis K31.84 ; Type 2 diabetes mellitus with diabetic autonomic (poly)neuropathy E11.43 and Neuropathy G62.9 [address] [facility] [id number] [place] [address] 88369- 2000 September, Other dorsalgia M54.89 [address] [id number] [place] [address] 63457- 8349 September, [address] [facility] [id number] [place] [address] 95937- 1990 September, [address] [id number] [place] [address] 15947- 5231 Aug, Gastroparesis K31.84 and Radicular leg pain M54.10 [address] [id number] [place] [address] 23560- 4536 Aug, Anorexia R63.0 [address] [id number] [place] [address] 97323- 2017 Aug, Bronchitis J40 [address] [facility] [id number] [place] [address] 82075- 7528 Aug, Back pain M54.9 [address] [id number] [place] [address] 80402- 6562 Aug, Routine gynecological examination Z01.419 ; Routine screening for STI (sexually transmitted infection) Z11.3 and Yeast infection of the vagina B37.3 [address] [facility] [id number] [place] [address] 75441- 9442 Jul, Other dorsalgia M54.89 [address] [id number] [place] [address] 28796- 1193 Jul, Diabetes E11.9 and Gastroparesis K31.84 [address] [place] [place] [address] 15751- 4523 Jun, [facility] [address] 65770- 3453 24 Jun, 2016 Back pain M54.9 [facility] [address] 49063- 8060 14 Jun, 2016 Neuropathy G62.9 [facility] [address] [id number] 02 Jun, 2016 Encounter for dental examination Z01.20 [facility] [address] 68150- 1021 Jun, Gastroparesis 536.3 and Anorexia R63.0 [facility] [address] 01782- 8879 May, Other dorsalgia M54.89 [facility] [address] 57003- 1559 May, Periumbilical abdominal pain R10.33 ; Weight loss R63.4 and Gastroparesis K31.84 [facility] [address] 97947- 6191 May, Back pain M54.9 [facility] [address] 80081- 8631 Apr, Anorexia R63.0 [facility] [address] 39612- 0125 Apr, Anorexia R63.0 [facility] [address] 88536- 3375 Apr, Back pain M54.9 [facility] [address] 34035- 2591 Apr, Back pain M54.9 [facility] [address] 08896- 2986 Apr, [facility] [id number] [place] [address] 09774- 3322 Apr, Bronchitis J40 and Neuropathy G62.9 [facility] [address] 17982- 5462 Apr, Neuropathy G62.9 [address] [place] [address] 42324- 5808 Apr, [address] [address] 18178- 4391 Apr, Back pain M54.9 [address] [address] 49999- 9013 Mar, Type 2 diabetes mellitus with diabetic autonomic (poly) neuropathy E11.43 [address] [place] [address] 84501- 9469 Mar, Type 2 diabetes mellitus without complications E11.9 [address] [address] 84700- 3308 Mar, Neuropathy G62.9 [address] [place] [address] 31274- 9392 Mar, [place] [facility] [id number] [place] [address] 36109- 8925 Mar, Breast cancer screening Z12.39 [address] [place] [address] 56712- 6979 Mar, Other dorsalgia M54.89 [place] [facility] [id number] [place] [address] 27206- 9624 Feb, [address] [address] 41843- 0339 Jan, Neuropathy G62.9 ; Type 2 diabetes mellitus with diabetic autonomic (poly)neuropathy E11.43 ; Uncomplicated asthma, unspecified asthma severity J45.909 and Encounter for immunization Z23 [address] [address] 45767- 1059 Jan, [facility] [address], [place] [address]- 9127 Jan, [facility] [id number] [place] [address] 57726- 5084 Dec, [facility] [id number] [place] [address] 75921- 8281 Dec, [facility] [id number] [place] [address] 32314- 5170 Nov, [facility] [id number] [place] [address] 87023- 4390 Nov, Back pain M54.9 [facility] [id number] [place] [address] 58674- 3016 Nov, Neuropathy G62.9 ; Mixed hyperlipidemia E78.2 ; Type 2 diabetes mellitus with diabetic autonomic (poly)neuropathy E11.43 and half-way 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 Z79.4 [facility] [address], [place] [address]- 8132 Oct, [facility] [id number] [place] [address] 26918- 8792 Oct, Other dorsalgia M54.89 [facility] [id number] [place] [address] 52295- 7221 September, Primary insomnia F51.01 [facility] [address], [place] [address]- 9954 September, [facility] [address], [place] [address]- 4874 Aug, Other dorsalgia M54.89 [facility] [address], [place] [address]- 5843 Jul, [facility] [address], [place] [address]- 8231 Jul, Other dorsalgia M54.89 [facility] [id number] [place] [address] 11182- 2711 Jul, Diabetes E11.9 ; Back pain M54.9 ; Neuropathy G62.9 and Gastroparesis K31.84 [facility] [id number] [place] [address] 90643- 4344 Jun, [facility] [address] 40973- 0517 Jun, Other dorsalgia M54.89 [facility] [id number] [place] [address] 80095- 2319 May, [facility] [address] 06435- 3191 May, Radicular leg pain M54.10 and Other dorsalgia M54.89 [facility] [id number] [place] [address] 29886- 2191 Apr, [facility] [id number] [place] [address] 63581- 0251 Mar, [facility] [id number] [place] [address] 78621- 4254 Mar, [facility] [id number] [place] [address] 79766- 2956 Mar, Radicular leg pain M54.10 [facility] [id number] [place] [address] 18070- 1538 Feb, [facility] [id number] [place] [address] 15792- 9159 Feb, [facility] [id number] [place] [address] 78875- 5672 Feb, [facility] [id number] [place] [address] 50308- 8432 Jan, [facility] [address] 68189- 5230 Jan, IBS (irritable bowel syndrome) 564.1 [facility] [id number] [place] [address] 74436- 3590 Jan, [facility] [id number] [place] [address] 55718- 6123 Jan, [facility] [id number] [place] [address] 67892- 1984 Jan, Diabetes mellitus without mention of complication, type II or unspecified type, not stated as uncontrolled 250.00 ; Gastroparesis 536.3 and Hypoacusis 389.9 [facility] [id number] [place] [address] 27089- 3616 Jan, [facility] [id number] [place] [address] 44962- 9301 Jan, [facility] [id number] [place] [address] 25768- 6306 Dec, [facility] [id number] [place] [address] 54483- 2212 Dec, [facility] [id number] [place] [address] 36719- 4561 Dec, [facility] [id number] [place] [address] 17294- 4762 Dec, Back pain 724.5 and Gastroparesis 536.3 [facility] [id number] [place] [address] 63870- 9916 Nov, [facility] [id number] [id number] Nov, Dental examination V72.2 [facility] [address] [place] [address]- 8[address] Nov, [facility] [address] [address] Nov, [facility] [address] [id number] Nov, Depressive disorder, not elsewhere classified 311 and No condition on [place] V71.09 [facility] [address] [address] Nov, Diabetes 250.00 and Symptomatic menopausal or female climacteric states 627.2 [facility] [id number] [place] [address]- [address] Oct, [facility] [id number] [place] [address]- [address]184 Oct, Lumbar strain 847.2 [facility] [id number] [place] [id number]- [address]68 Oct, Gastroparesis 536.3 and Unspecified myalgia and myositis 729.1 [facility] [id number] [place] [address]- [address] Aug, [facility] [address], [place] [address] Aug, [facility] [address] [address] Jul, [facility] [address] [place] [address] Jul, [facility] [address], [place] [address] Jul, [facility] [address], [place] [address] Jul, [facility] [address] [address] Jul, [facility] [address] [address] Jun, [facility] [address] [address] Jun, [facility] [place] [facility] [address] [id number] [place] [address] Jun, [facility] [place] [facility] [address] [id number] [place] [address] May, [facility] [place] [facility] [address] [id number] [place] [address] May, [facility] [place] [facility] [address] [id number] [place] [address] Mar, [facility] [place] [facility] [address] [id number] [place] [address] Mar, [facility] [place] [facility] [address] [id number] [place] [address]274 Mar, [facility] [place] [facility] [address] [id number] [place] [address]- [address] Mar, [facility] [place] [facility] [address] [id number] [place] [address] 2064 Mar, [facility] [place] [facility] [address] [id number] [place] [address] Mar, [facility] [place] [facility] [address] [id number], [place] [address] Feb, [facility] [place] [facility] [address] [id number], [place] [address] Feb, [facility] [place] [facility] [address] [id number], [place] [address] Nov, [facility] [place] [facility] [address] [id number] [place] [address] Nov, [facility] [place] [facility] [address] [id number], [place] [address] Nov, [facility] [place] [facility] [address] [id number], [place] [address] Oct, [facility] [place] [facility] [address] [id number], [place] [address] September, [facility] [address] [id number] [place] [address] Aug, [facility] [address] [id number] [place], [place] [address] 15 Aug, 2012 [facility] [address] [facility] [id number] [place] [address] Aug, [facility] [address] [id number] [place] [address] Aug, [facility] [address] [id number] [place] [address] Aug, [facility] [address] [facility] [id number] [place] [address] Aug, [facility] [address] [id number] [address] Aug, [facility] [address] [id number] [place] [address] Aug, [facility] [address] [id number] [place] [address] Jul, [facility] [address] [id number] [place] [address] Jul, [facility] [address] [id number] [place] [address] Jun, [facility] [place] [facility] [address] [id number] [place] [address] Jun, [facility] [place] [facility] [address] [id number] [place] [address] Jun, [facility] [place] [facility] [address] [id number], [place] [address] Jun, [facility] [address] [facility] [id number], [place] [address] 07 Jun, 2012 [facility] [address] [facility] [id number], [place] [address] Jun, [facility] [address] [id number] [address] Jun, [facility] [address] [id number], [place] [address] May, [facility] [id number], [place] [address] May, [facility] [id number], [place] [address] May, [facility] [id number], [place] [address] May, [facility] [id number], [place] [address] Mar, [facility] [address] [id number], [place] [address] Mar, [facility] [address] [id number], [place] [address] Jan, IMMUNIZATIONS No Known Immunizations SOCIAL HISTORY Never Assessed REASON FOR VISIT polyps PLAN OF CARE VITAL SIGNS MEDICATIONS Unknown [...] vomitting-[facility] 03/05/17 Hospitalization History hospital stay at [facility] for stomach issues 2016
--- OUTSIDE RECORDS SUMMARY | 2018-01-27 20:11 | XMS REPORT ---
Author Author HORACE HIGGINS [facility] Address [address] [place] [address] Care Team Providers Care Stranner Name Role Phone HORACE HIGGINS Unavailable PROBLEMS Type Condition ICD9-CM Code WYD50-WH Code Onset Dates Condition Status SNOMED Code Problem Uncomplicated asthma, unspecified asthma severity J45.909 Active 273562449 Problem Weight loss R63.4 Active 922713691 Problem Anorexia R63.0 Active 49789470 Problem PTSD (post-traumatic stress disorder) F43.10 Active 01364884 Problem Diabetic polyneuropathy associated with type 2 diabetes mellitus E11.42 Active 16109267 Problem Primary insomnia F51.01 Active 0117913 Problem History of colon polyps Z86.010 Active 023574388 Problem Reactive depression F32.9 Active 41495545 Problem Asthma exacerbation J45.901 Active 774381452 Problem Depressive disorder, not elsewhere classified 311 Active 01203148 Problem Back pain M54.9 Active 841936515 Problem Gastroparesis K31.84 Active 252614048 Problem Mixed hyperlipidemia E78.2 Active 336486424 Problem Neuropathy G62.9 Active 243124792 Problem Type 2 diabetes mellitus with diabetic autonomic (poly)neuropathy E11.43 Active 78202411 Problem Diabetes E11.9 Active 35518582 Problem jail 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 Z79.4 Active 212482722 ALLERGIES No Information ENCOUNTERS Encounter Location Date Diagnosis [facility] [id number], [place] [address] September, [facility] [id number], [place] [address] September, [facility] [id number] [id number] Aug, Dental examination Z01.20 and Xerostomia K11.7 [facility] [id number] [place] [address] 07553- 5854 Aug, Neuropathy G62.9 [facility] [address] 07[address]- 5196 Aug, [facility] [address] 96755- 1468 Aug, Other dorsalgia M54.89 [facility] [address] 9[address]93- 3714 Aug, Type 2 diabetes mellitus with diabetic autonomic (poly) neuropathy E11.43 ; Diabetic polyneuropathy associated with type 2 diabetes mellitus E11.42 ; Bronchitis J40 ; Gastroparesis K31.84 and Reactive depression F32.9 [facility] [address] 56177- 6328 Aug, PTSD (post-traumatic stress disorder) F43.10 [facility] [address] 10782- 1559 Aug, Other dorsalgia M54.89 and Anorexia R63.0 [facility] [address] 94107- 7673 Jul, [facility] [address] 21563- 0217 Jul, Other dorsalgia M54.89 [facility] [id number] [place] [address] 22607- 9102 Jul, [facility] [id number] [place] [address] 15956 2544 Jul, [facility] [id number] [place] [address] 66266- 1537 Jul, PTSD (post-traumatic stress disorder) F43.10 [facility] [id number] [place] [address] 19008- 3126 Jul, [facility] [address] 32718 2546 Jul, [facility] [id number] [place] [address] 92692- 9406 Jul, [facility] [address] 7[address]60 2546 Jul, Anorexia R63.0 [facility] [id number] [place] [address] 58352- 7006 Jun, [facility] [id number] [place] [address] 53380- 8766 Jun, Vaginal discharge N89.8 ; Visit for gynecologic examination Z01.419 and Pelvic pressure in female R10.2 [facility] [address] 85206- 3406 Jun, [facility] [address] 84534- 8236 Jun, Other dorsalgia M54.89 [facility] [id number] [place] [address] 42917- 9363 Jun, [facility] [address] 03233- 7034 Jun, [facility] [id number] [place] [address] 84676- 1944 Jun, [facility] [id number] [place] [address] 26031- 2954 May, Back pain M54.9 [facility] [id number] [place] [address] 54397 2546 May, Anorexia R63.0 [facility] [address] 58905 2546 May, Other dorsalgia M54.89 [facility] [id number] [place] [address] 21802- 1736 May, [facility] [address] 74721- 9570 May, Bronchitis J40 [facility] [address] 47957- 6743 May, Type 2 diabetes mellitus with diabetic autonomic (poly) neuropathy E11.43 ; 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 ; Back pain M54.9 and Neuropathy G62.9 [address] [address] 68530- 3963 May, Left breast mass N63.20 [facility] [address] 43540- 7652 May, [place] [address] 86436- 5633 Apr, Other dorsalgia M54.89 [place] [address] 44701- 1908 Apr, Anorexia R63.0 [place] [address] 97956- 7468 Apr, Anorexia R63.0 [place] [address] 08791- 1169 Apr, Mass of left breast N63.20 [facility] [address] 58972- 5007 Apr, [facility] [address] 80493- 6447 Apr, [facility] [address] 66199- 6000 Apr, Diarrhea of presumed infectious origin A09 [place] [address] 73558- 1705 Apr, Encounter for immunization Z23 [place] [address] 97485- 0231 05 Apr, 2017 [facility] [address] [place] [address] 7935 Mar, Other dorsalgia M54.89 [facility] [address] 19584- 8465 Mar, [facility] [address] 02937- 0518 Mar, [facility] [address] 21050- 7397 Mar, Anorexia R63.0 [facility] [address] 68155- 4019 Mar, [facility] [address] 17728- 2723 Mar, Other dorsalgia M54.89 [facility] [address] 55878- 2241 Mar, [facility] [address] 43001- 6788 Mar, Encounter for immunization Z23 [facility] [address] 15472- 3305 Feb, Anorexia R63.0 [facility] [id number] [place] [address] 88402- 9166 Feb, Diabetes E11.9 [facility] [address] 67085- 2661 Feb, Back pain M54.9 and Diabetes E11.9 [facility] [id number] [place] [address] 66269- 7069 Feb, Diabetes E11.9 [facility] [address] 92297- 9680 Feb, Neuropathy G62.9 [facility] [id number] [place] [address] 88004- 9459 Feb, Encounter for immunization Z23 ; Epigastric pain R10.13 ; Weight loss, abnormal R63.4 and Neuropathy G62.9 [facility] [id number] [place] [address] [id number] Feb, [facility] [id number] [place] [address] 19237- 7163 Feb, [facility] [id number] [place] [address] 66038- 5272 Feb, Intractable vomiting with nausea, unspecified vomiting type R11.2 [facility] [id number] [place] [address] 06929 -2789 Feb, Chronic nausea R11.0 [facility] [address] 15511- 5085 Feb, Other dorsalgia M54.89 [facility] [id number] [place] [address] 13354- 2054 Jan, [facility] [id number] [place] [address] 84495- 1787 Jan, [facility] [id number] [place] [address] 33310- 8953 Jan, [facility] [id number] [place] [address] 23984- 2460 Jan, [facility] [id number] [place] [address] 72089- 1700 Jan, Asthma exacerbation J45.901 ; Bronchitis J40 and Neuropathy G62.9 [facility] [id number] [place] [address] 36873- 8014 Jan, Anorexia R63.0 [facility] [address] 25044- 9357 Jan, Other dorsalgia M54.89 [facility] [id number] [place] [address] 35582- 7253 Dec, [facility] [address] 68144- 5782 Dec, [facility] [id number] [place] [address] 44274- 8586 Dec, Anorexia R63.0 [facility] [id number] [place] [address] 19895- 5088 Dec, Primary insomnia F51.01 [facility] [id number] [place] [address] 91153- 8238 Dec, Other dorsalgia M54.89 [facility] [id number] [place] [address] 09168- 2637 Dec, [facility] [id number] [place] [address] 87251- 5714 Nov, [facility] [id number] [place] [address] 89193- 4733 Nov, [facility] [id number] [place] [address] 32809- 4294 Nov, [facility] [id number] [place] [address] 65776- 4865 Nov, History of colon polyps Z86.010 [facility] [id number] [place] [address] 95464- 2718 Nov, Weight loss R63.4 ; Nausea and vomiting, intractability of vomiting not specified, unspecified vomiting type R11.2 and Abnormal LFTs R79.89 [facility] [id number] [place] [address] 75652- 7287 Nov, [facility] [id number] [place] [address] 38006- 4646 Nov, Neuropathy G62.9 and Pain in right knee M25.561 [facility] [id number] [place] [address] 38481- 0539 Nov, Back pain M54.9 [facility] [id number] [place] [address] 56336- 9948 Nov, [facility] [id number], [place] [address]- 7011 Nov, Bronchitis J40 [facility] [id number] [place] [address] 54004- 0633 Nov, Weight loss R63.4 [facility] [id number] [place] [address] 87575- 0730 Oct, Back pain M54.9 [facility] [id number] [place] [address] 34177- 9626 Oct, [facility] [id number] [place] [address] 34420- 5526 Oct, Back pain M54.9 [facility] [id number] [place] [address] 04691- 0033 Oct, Type 2 diabetes mellitus without complications E11.9 and Bronchitis J40 [facility] [id number] [place] [address] 05168- 5048 Oct, [facility] [id number] [place] [address] 29070- 9265 Oct, [facility] [id number] [place] [address] 78587- 8193 September, Gastroparesis K31.84 ; Type 2 diabetes mellitus with diabetic autonomic (poly)neuropathy E11.43 and Neuropathy G62.9 [facility] [address], [place] [address]- 6672 September, Other dorsalgia M54.89 [facility] [id number] [place] [address] 27310- 4683 September, [facility] [id number] [place] [address] 98279- 1384 September, [facility] [id number] [place] [address] 43665- 0991 Aug, Gastroparesis K31.84 and Radicular leg pain M54.10 [facility] [id number] [place] [address] 18134- 5051 Aug, Anorexia R63.0 [facility] [id number] [place] [address] 25792- 9719 Aug, Bronchitis J40 [facility] [address] 840432- 7823 Aug, Back pain M54.9 [facility] [address] 26089- 2489 Aug, Routine gynecological examination Z01.419 ; Routine screening for STI (sexually transmitted infection) Z11.3 and Yeast infection of the vagina B37.3 [place] [address] 92844- 5878 Jul, Other dorsalgia M54.89 [facility] [address] 48243- 5532 Jul, Diabetes E11.9 and Gastroparesis K31.84 [facility] [address] 77648- 2089 Jun, [facility] [address] 72927- 0152 Jun, Back pain M54.9 [facility] [address] 01549- 4932 14 Jun, 2016 Neuropathy G62.9 [facility] [id number] [place] [address] [id number] 02 Jun, 2016 Encounter for dental examination Z01.20 [facility] [id number]- 7281 01 Jun, 2016 Gastroparesis 536.3 and Anorexia R63.0 [facility] [address] 96232- 1456 May, Other dorsalgia M54.89 [facility] [id number] [place] [address] 22191 2546 May, Periumbilical abdominal pain R10.33 ; Weight loss R63.4 and Gastroparesis K31.84 [facility] [address] 76596 2546 May, Back pain M54.9 [facility] [address] 12071 2546 Apr, Anorexia R63.0 [facility] [address] 15721- 2546 Apr, Anorexia R63.0 [facility] [address] 84634 2546 16 Apr, 2016 Back pain M54.9 [facility] [address] 59109 2546 15 Apr, 2016 Back pain M54.9 [facility] [address] 43669 2546 Apr, [facility] [address] 11637 2546 Apr, Bronchitis J40 and Neuropathy G62.9 [facility] [address] 68917 2546 Apr, Neuropathy G62.9 [facility] [address] 88443 2546 05 Apr, 2016 [facility] [address] 43436 2546 Apr, Back pain M54.9 [facility] [address] 59759 2546 30 Mar, 2016 Type 2 diabetes mellitus with diabetic autonomic (poly) neuropathy E11.43 [facility] [address] 69547- 1926 Mar, Type 2 diabetes mellitus without complications E11.9 [facility] [id number] [place] [address] 12918- 8314 Mar, Neuropathy G62.9 [facility] [id number] [place] [address] 98051- 8217 Mar, [facility] [address] 93204- 3801 Mar, Breast cancer screening Z12.39 [facility] [address] 80759- 2760 Mar, Other dorsalgia M54.89 [facility] [address] 88605- 6614 Feb, [facility] [address] 19970- 4826 Jan, Neuropathy G62.9 ; Type 2 diabetes mellitus with diabetic autonomic (poly)neuropathy E11.43 ; Uncomplicated asthma, unspecified asthma severity J45.909 and Encounter for immunization Z23 [facility] [id number] [place] [address] 53602- 3419 Jan, [facility] [id number] [place] [address] 98514- 0757 Jan, [facility] [id number] [place] [address] 09240- 3368 Dec, [facility] [id number] [place] [address] 61618- 2115 Dec, [facility] [id number] [place] [address] 76597- 4846 Nov, [facility] [id number] [place] [address] 49059- 6202 Nov, Back pain M54.9 [facility] [id number] [place] [address] 29575- 0285 Nov, Neuropathy G62.9 ; Mixed hyperlipidemia E78.2 ; Type 2 diabetes mellitus with diabetic autonomic (poly)neuropathy E11.43 and jail 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 Z79.4 [facility] [id number] [place] [address] 53496- 9757 Oct, [facility] [id number] [place] [address] 33962- 2497 Oct, Other dorsalgia M54.89 [facility] [id number] [place] [address] 29701- 7678 September, Primary insomnia F51.01 [facility] [id number] [place] [address] 95911- 4066 September, [facility] [id number] [place] [address] 81377- 8315 Aug, Other dorsalgia M54.89 [facility] [id number] [place] [address] 61120- 1910 Jul, [facility] [id number] [place] [address] 98040- 5381 Jul, Other dorsalgia M54.89 [facility] [id number] [place] [address] 94696- 7075 Jul, Diabetes E11.9 ; Back pain M54.9 ; Neuropathy G62.9 and Gastroparesis K31.84 [facility] [id number] [place] [address] 87274- 5063 Jun, [facility] [id number] [place] [address] 17034- 0838 Jun, Other dorsalgia M54.89 [facility] [id number] [place] [address] 76214- 1933 May, [facility] [id number] [place] [address] 33503- 6550 May, Radicular leg pain M54.10 and Other dorsalgia M54.89 [facility] [address], [place] [address]- 5565 Apr, [facility] [id number] [place] [address] 63768- 5476 Mar, [facility] [id number] [place] [address] 95606- 3476 Mar, [facility] [id number] [place] [address] 65166- 8322 Mar, Radicular leg pain M54.10 [facility] [id number] [place] [address] 642699- 3526 Feb, [facility] [id number] [place] [address] 91939- 4220 Feb, [facility] [id number] [place] [address] 54779- 0969 Feb, [facility] [id number] [place] [address] 07892- 0772 Jan, [facility] [id number] [place] [address] 03498- 7887 Jan, IBS (irritable bowel syndrome) 564.1 [facility] [address] [address]- 3025 Jan, [facility] [id number] [place] [address]- [address] Jan, [facility] [id number] [address] Jan, Diabetes mellitus without mention of complication, type II or unspecified type, not stated as uncontrolled 250.00 ; Gastroparesis 536.3 and Hypoacusis 389.9 [facility] [id number] [address] Jan, [facility] [id number] [place] [address]- 1028 Jan, [facility] [id number] [address] Dec, [facility] [id number] [address] Dec, [facility] [id number] [address] Dec, [facility] [id number] [address] Dec, Back pain 724.5 and Gastroparesis 536.3 [facility] [id number] [place] [address]270- 1306 Nov, [facility] [id number] [id number] Nov, Dental examination V72.2 [facility] [id number] [place] [address]- 5112 Nov, [facility] [id number], [place] [address] Nov, [facility] [id number] [address] Nov, Depressive disorder, not elsewhere classified 311 and No condition on [place] II V71.09 [facility] [id number] [address] Nov, Diabetes 250.00 and Symptomatic menopausal or female climacteric states 627.2 [facility] [id number] [address] Oct, [facility] [id number] [address] Oct, Lumbar strain 847.2 [facility] [id number] [address] Oct, Gastroparesis 536.3 and Unspecified myalgia and myositis 729.1 [facility] [place] [facility] [address] [id number] [place] [address]- [address] 14 Aug, 2014 [facility] [place] [facility] [address] [id number] [place] [address] Aug, [facility] [place] [facility] [address] [id number] [place] [address] Jul, [facility] [place] [facility] [address] [id number] [place] [address]- 9103 Jul, [facility] [place] [facility] [address] [id number] [place] [address]- 1645 Jul, [facility] [place] [facility] [address] [id number] [place] [address] 9695 Jul, [facility] [place] [facility] [address] [facility] [id number] [place] [address]- [address] Jul, [facility] [place] [facility] [address] [id number] [place] [address]- [address] Jun, [facility] [place] [facility] [address] [id number] [place] [address]- [address] Jun, [facility] [place] [facility] [address] [facility] [id number] [place] [address]- [address]671 Jun, [facility] [place] [facility] [address] [facility] [id number] [place] [address]- [address] May, [facility] [place] [facility] [address] [id number] [address] May, [facility] [place] [facility] [address] [id number] [place] [address] Mar, [facility] [place] [facility] [address] [id number] [place] [address]- 1665 Mar, [facility] [place] [facility] [address] [facility] [id number] [place] [address]- 2351 Mar, [facility] [place] [facility] [address] [id number] [address] Mar, [facility] [address] [id number] [place] [address] Mar, [facility] [place] [facility] [address] [id number] [place] [address] Mar, [facility] [address] [id number] [place] [address] Feb, [facility] [place] [facility] [address] [id number] [place] [address] Feb, [facility] [address] [id number] [place] [address] Nov, [facility] [place] [facility] [address] [id number] [place] [address] Nov, [facility] [address] [id number] [place] [address] Nov, [facility] [place] [facility] [address] [id number] [place] [address] Oct, [facility] [address] [id number] [place] [address] September, [facility] [address] [facility] [id number] [place] [address] Aug, [facility] [address] [id number] [place] [address] 15 Aug, 2012 [facility] [place] [facility] [address] [id number], [place] [address] Aug, [facility] [place] [facility] [address] [id number] [place] [address] Aug, [facility] [place] [facility] [address] [id number] [place] [address] 10 Aug, 2012 [facility] [place] [facility] [address] [facility] [id number] [place] [address]- [address] Aug, [facility] [place] [facility] [address] [id number] [place] [address] Aug, [facility] [place] [facility] [address] [id number] [place] [address] Aug, [facility] [place] [facility] [address] [id number] [place] [address] Jul, [facility] [place] [facility] [address] [id number] [place] [address] Jul, [facility] [place] [facility] [address] [id number] [place] [address] Jun, [facility] [place] [facility] [address] [id number] [place] [address] Jun, [facility] [place] [facility] [address] [facility] [id number] [place] [address] Jun, [facility] [place] [facility] [address] [id number] [place] [address] 08 Jun, 2012 [facility] [place] [facility] [address] [id number] [place] [address] Jun, [facility] [place] [facility] [address] [id number] [place] [address] Jun, [facility] [place] [facility] [address] [facility] [id number] [place] [address]- [address] Jun, [facility] [place] [facility] [address] [id number] [place] [address] May, [facility] [place] [facility] [address] [id number] [place] [address] May, [facility] [place] [facility] [address] [id number] [place] [address]- [address] May, [facility] [place] [facility] [address] [id number] [place] [address] May, [facility] [place] [facility] [address] [id number] [place] [address] Mar, [facility] [address] [facility] [id number] [place] [address] Mar, [facility] [address] [facility] [id number] [place] [address] Jan, IMMUNIZATIONS No Known Immunizations SOCIAL HISTORY Never Assessed REASON FOR VISIT Tizanidine refill PLAN OF CARE VITAL SIGNS MEDICATIONS Medication Instructions Dosage Frequency Start Date End Date Duration Status Tizanidine HCl 4 MG Orally 2 times a day 1 tablet 12h May, 30 days Active RESULTS No Results PROCEDURES [...]
--- OUTSIDE RECORDS SUMMARY | 2018-01-27 20:12 | XMS REPORT ---
Author Author HORACE HIGGINS [facility] Address [address] [place] [address] Care Team Providers Care Convention Planner Name Role Phone HORACE HIGGINS Unavailable PROBLEMS Type Condition ICD9-CM Code GLK44-YQ Code Onset Dates Condition Status SNOMED Code Problem Uncomplicated asthma, unspecified asthma severity J45.909 Active 156874283 Problem Weight loss R63.4 Active 251840057 Problem Anorexia R63.0 Active 97278727 Problem PTSD (post-traumatic stress disorder) F43.10 Active 45054643 Problem Diabetic polyneuropathy associated with type 2 diabetes mellitus E11.42 Active 89496810 Problem Primary insomnia F51.01 Active 4301794 Problem History of colon polyps Z86.010 Active 453329962 Problem Reactive depression F32.9 Active 55830171 Problem Asthma exacerbation J45.901 Active 232672856 Problem Depressive disorder, not elsewhere classified 311 Active 00648411 Problem Back pain M54.9 Active 912245136 Problem Gastroparesis K31.84 Active 372064635 Problem Mixed hyperlipidemia E78.2 Active 152049940 Problem Neuropathy G62.9 Active 200697210 Problem Type 2 diabetes mellitus with diabetic autonomic (poly)neuropathy E11.43 Active 72534988 Problem Diabetes E11.9 Active 85817671 Problem [facility]FP 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 Z79.4 Active 255969296 ALLERGIES No Information ENCOUNTERS Encounter Location Date Diagnosis [facility] [address] [facility] [id number] [address] September, [facility] [address] [address] September, [facility] [address] [address] September, [facility] [id number] [address] September, Abnormal TSH R94.6 and Dysfunction of left eustachian tube H69.82 [facility] [address] [address]- 4933 Aug, [facility] [address] 22257- 2689 Aug, Anorexia R63.0 [facility] [address] [id number] Aug, Dental examination Z01.20 and Xerostomia K11.7 [facility] [address] [address]- [address]265 Aug, Neuropathy G62.9 [facility] [address] [address]35- 9948 Aug, [place] [address] [address]- 2797 Aug, Other dorsalgia M54.89 [place] [address] 58820- 8702 Aug, Type 2 diabetes mellitus with diabetic autonomic (poly) neuropathy E11.43 ; Diabetic polyneuropathy associated with type 2 diabetes mellitus E11.42 ; Bronchitis J40 ; Gastroparesis K31.84 and Reactive depression F32.9 [place] [address] 8[address]46- 6380 Aug, PTSD (post-traumatic stress disorder) F43.10 [facility] [id number] [place] [address] 80432- 1786 Aug, Other dorsalgia M54.89 and Anorexia R63.0 [facility] [address] 80149- 1623 Jul, [facility] [address] 58587- 3774 Jul, Other dorsalgia M54.89 [place] [address] [place] [address] 5[address] Jul, [facility] [id number] [place] [address] 57654- 4121 Jul, [facility] [id number] [place] [address] 82546- 9829 Jul, PTSD (post-traumatic stress disorder) F43.10 [facility] [id number] [place] [address] 40100- 7115 Jul, [facility] [id number] [place] [address] 90368- 3998 Jul, [facility] [id number] [place] [address] 92851- 2195 Jul, [facility] [id number] [place] [address] 82934- 7062 Jul, Anorexia R63.0 [facility] [id number] [place] [address] 82259- 8926 Jun, [facility] [id number] [place] [address] 41165- 1395 Jun, Vaginal discharge N89.8 ; Visit for gynecologic examination Z01.419 and Pelvic pressure in female R10.2 [facility] [id number] [place] [address] 95544- 0814 Jun, [facility] [id number] [place] [address] 45940- 6560 Jun, Other dorsalgia M54.89 [facility] [id number] [place] [address] 56573- 7446 16 Jun, 2017 [facility] [id number] [place] [address] 87015- 5236 07 Jun, 2017 [facility] [id number] [place] [address] 26448- 6336 Jun, [facility] [id number] [place] [address] 49349- 0866 May, Back pain M54.9 [facility] [address] 30373- 0196 May, Anorexia R63.0 [facility] [address] 60882- 7577 May, Other dorsalgia M54.89 [facility] [address] 68830- 5287 May, [facility] [address] 04065- 2745 May, Bronchitis J40 [facility] [address] 14467- 3112 May, Type 2 diabetes mellitus with diabetic autonomic (poly) neuropathy E11.43 ; MCFP 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 Z79.4 ; Back pain M54.9 and Neuropathy G62.9 [facility] [id number] [place] [address] 60253- 7041 May, Left breast mass N63.20 [facility] [address] 16836- 9720 May, [facility] [address] 40531- 2647 Apr, Other dorsalgia M54.89 [facility] [id number] [place] [address] 37779- 8494 Apr, Anorexia R63.0 [facility] [address] 85154- 1740 Apr, Anorexia R63.0 [facility] [address] 44108- 2650 Apr, Mass of left breast N63.20 [facility] [id number] [place] [address] 83946- 0445 Apr, [facility] [id number] [place] [address] 08659- 1914 Apr, [facility] [id number] [place] [address] 47206- 9776 Apr, Diarrhea of presumed infectious origin A09 [facility] [id number] [place] [address] 13148- 7271 Apr, Encounter for immunization Z23 [facility] [address] 54011- 5271 Apr, [facility] [id number] [place] [address] 13004- 6470 Mar, Other dorsalgia M54.89 [facility] [id number] [place] [address] 86407- 7926 Mar, [facility] [id number] [place] [address] 41050- 5742 Mar, [facility] [id number] [place] [address] 38966- 5050 Mar, Anorexia R63.0 [facility] [id number] [place] [address] 62177- 2643 Mar, [facility] [id number] [place] [address] 07290 2549 Mar, Other dorsalgia M54.89 [facility] [id number] [place] [address] 87414- 8244 Mar, [facility] [id number] [place] [address] 90189 2544 Mar, Encounter for immunization Z23 [facility] [id number] [place] [address] 72961- 2186 Feb, Anorexia R63.0 [facility] [id number] [place] [address] 27845 2546 Feb, Diabetes E11.9 [facility] [id number] [place] [address] 23555- 9007 Feb, Back pain M54.9 and Diabetes E11.9 [facility] [address] 43266- 9549 Feb, Diabetes E11.9 [facility] [address] 27851- 4993 Feb, Neuropathy G62.9 [facility] [address] 27941- 0567 Feb, Encounter for immunization Z23 ; Epigastric pain R10.13 ; Weight loss, abnormal R63.4 and Neuropathy G62.9 [facility] [address] [id number] Feb, [facility] [address] 43225- 5975 Feb, [facility] [address] 18038- 0856 Feb, Intractable vomiting with nausea, unspecified vomiting type R11.2 [facility] [address] 03044 -9058 Feb, Chronic nausea R11.0 [facility] [address] 24915- 3628 Feb, Other dorsalgia M54.89 [facility] [id number] [place] [address] 88935- 5147 Jan, [facility] [address] 63977- 2322 Jan, [facility] [address] 69794- 6498 Jan, [facility] [address] 85459- 1272 Jan, [facility] [address] 82581- 2747 08 Jan, 2017 Asthma exacerbation J45.901 ; Bronchitis J40 and Neuropathy G62.9 [facility] [address] 14709- 0836 06 Jan, 2017 Anorexia R63.0 [facility] [id number] [place] [address] 21526- 4911 Jan, Other dorsalgia M54.89 [facility] [address] 29870- 6506 Dec, [facility] [address] 77189- 2889 Dec, [facility] [address] 85661- 1838 Dec, Anorexia R63.0 [facility] [address] 03895- 5949 Dec, Primary insomnia F51.01 [facility] [address] 20143- 7868 Dec, Other dorsalgia M54.89 [facility] [address] 36469- 2143 Dec, [facility] [id number] [place] [address] 67480- 7802 Nov, [facility] [id number] [place] [address] 57844- 2527 Nov, [facility] [id number] [place] [address] 72116- 4914 Nov, [facility] [address] 54719- 8472 Nov, History of colon polyps Z86.010 [facility] [id number] [place] [address] 15310- 8330 Nov, Weight loss R63.4 ; Nausea and vomiting, intractability of vomiting not specified, unspecified vomiting type R11.2 and Abnormal LFTs R79.89 [facility] [id number] [place] [address] 70538- 2863 18 Nov, 2016 [facility] [address] 45096- 4792 Nov, Neuropathy G62.9 and Pain in right knee M25.561 [facility] [address] 46713- 5473 Nov, Back pain M54.9 [facility] [address] 94946- 6313 Nov, [facility] [address] 31161- 5543 Nov, Bronchitis J40 [facility] [address] 55724- 6099 Nov, Weight loss R63.4 [facility] [address] 46138- 7262 Oct, Back pain M54.9 [facility] [address] 32028- 0578 Oct, [facility] [id number] [place] [address] 12402- 8189 Oct, Back pain M54.9 [facility] [address] 28326- 6130 Oct, Type 2 diabetes mellitus without complications E11.9 and Bronchitis J40 [facility] [id number] [place] [address] 33995- 5624 Oct, [facility] [address] 21699- 6748 Oct, [facility] [id number] [place] [address] 81357- 9503 September, Gastroparesis K31.84 ; Type 2 diabetes mellitus with diabetic autonomic (poly)neuropathy E11.43 and Neuropathy G62.9 [facility] [id number] [place] [address] 85104- 3689 September, Other dorsalgia M54.89 [facility] [id number] [place] [address] 81726- 0304 September, [facility] [id number] [place] [address] 92319- 3170 September, [facility] [address] 34300- 6673 Aug, Gastroparesis K31.84 and Radicular leg pain M54.10 [place] [address] 95217- 4470 Aug, Anorexia R63.0 [place] [address] 60525- 2405 Aug, Bronchitis J40 [facility] [id number] [place] [address] 04109- 0802 Aug, Back pain M54.9 [place] [id number] [place] [address] 03563- 1434 Aug, Routine gynecological examination Z01.419 ; Routine screening for STI (sexually transmitted infection) Z11.3 and Yeast infection of the vagina B37.3 [facility] [id number] [place] [address] 81132- 1504 Jul, Other dorsalgia M54.89 [facility] [id number] [place] [address] 00547- 3052 Jul, Diabetes E11.9 and Gastroparesis K31.84 [facility] [id number] [place] [address] 47382- 4215 Jun, [facility] [id number] [place] [address] 45536- 1842 Jun, Back pain M54.9 [place] [id number] [place] [address] 11001- 1899 14 Jun, 2016 Neuropathy G62.9 [facility] [address] [id number] 02 Jun, 2016 Encounter for dental examination Z01.20 [facility] [address] 76383- 2430 01 Jun, 2016 Gastroparesis 536.3 and Anorexia R63.0 [facility] [address] 32875 2544 27 May, 2016 Other dorsalgia M54.89 [facility] [address] 20717- 2656 10 May, 2016 Periumbilical abdominal pain R10.33 ; Weight loss R63.4 and Gastroparesis K31.84 [facility] [address] 57731- 9500 May, Back pain M54.9 [facility] [address] 36176 2544 Apr, Anorexia R63.0 [facility] [address] 55280 254 Apr, Anorexia R63.0 [facility] [id number] [place] [address] 90888 2541 16 Apr, 2016 Back pain M54.9 [facility] [address] 90739 2546 15 Apr, 2016 Back pain M54.9 [facility] [address] 57334 2546 Apr, [facility] [address] 34688 2546 Apr, Bronchitis J40 and Neuropathy G62.9 [facility] [address] 06549- 2152 Apr, Neuropathy G62.9 [facility] [id number] [place] [address] 14891- 3246 Apr, [facility] [id number] [place] [address] 41455- 9428 Apr, Back pain M54.9 [facility] [id number] [place] [address] 14366- 4662 Mar, Type 2 diabetes mellitus with diabetic autonomic (poly) neuropathy E11.43 [facility] [id number] [place] [address] 50194- 0816 Mar, Type 2 diabetes mellitus without complications E11.9 [facility] [address] [place] [address] 07586- 4263 Mar, Neuropathy G62.9 [facility] [id number] [place] [address] 85094- 8818 Mar, [facility] [id number] [place] [address] 91281- 7520 Mar, Breast cancer screening Z12.39 [place] [address] 85758- 5922 Mar, Other dorsalgia M54.89 [facility] [id number] [place] [address] 21647- 9483 Feb, [facility] [id number] [place] [address] 45758- 1170 Jan, Neuropathy G62.9 ; Type 2 diabetes mellitus with diabetic autonomic (poly)neuropathy E11.43 ; Uncomplicated asthma, unspecified asthma severity J45.909 and Encounter for immunization Z23 [facility] [id number] [place] [address] 64892- 3565 Jan, [facility] [id number] [place] [address] 85685- 9657 Jan, [facility] [address] [place] [address]- 6476 Dec, [facility] [id number] [place] [address] 91401- 7866 Dec, [facility] [id number] [place] [address] 88090- 8468 Nov, [facility] [address] [place] [address] 12573- 6841 Nov, Back pain M54.9 [facility] [address] [place] [address] 87253- 0564 Nov, Neuropathy G62.9 ; Mixed hyperlipidemia E78.2 ; Type 2 diabetes mellitus with diabetic autonomic (poly)neuropathy E11.43 and 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 care 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 Z79.4 [place] [id number] [place] [address] 85129- 8013 Oct, [facility] [address] 41807- 1768 Oct, Other dorsalgia M54.89 [facility] [id number] [place] [address] 06965- 8008 September, Primary insomnia F51.01 [facility] [id number] [place] [address] 40171- 0015 September, [facility] [id number] [place] [address] 32836- 5632 Aug, Other dorsalgia M54.89 [facility] [id number] [place] [address] 26420- 9487 Jul, [facility] [id number] [place] [address] 68719- 3804 Jul, Other dorsalgia M54.89 [facility] [id number] [place] [address] 11584- 6985 Jul, Diabetes E11.9 ; Back pain M54.9 ; Neuropathy G62.9 and Gastroparesis K31.84 [place] [id number] [address]- 8696 Jun, [facility] [id number] [place] [address] 64817 2546 Jun, Other dorsalgia M54.89 [facility] [id number] [place] [address] 22321 2546 May, [facility] [id number] [place] [address] 11398 2546 May, Radicular leg pain M54.10 and Other dorsalgia M54.89 [facility] [id number] [place] [address] 32446- 3216 Apr, [facility] [id number] [place] [address] 63169- 3516 Mar, [facility] [id number] [place] [address] 62079- 4309 Mar, [facility] [id number] [place] [address] 60297- 5192 Mar, Radicular leg pain M54.10 [facility] [id number] [place] [address] 98160- 5580 Feb, [facility] [address] [address]- 5991 Feb, [facility] [id number] [place] [address] 11884 2540 Feb, [facility] [address] [address]- 254 Jan, [facility] [id number] [place] [address] 80306- 4487 Jan, IBS (irritable bowel syndrome) 564.1 [facility] [address] [address]- 0199 Jan, [facility] [id number] [place] [address] 38872- 5961 Jan, [facility] [id number] [place] [address] 13597- 5602 Jan, Diabetes mellitus without mention of complication, type II or unspecified type, not stated as uncontrolled 250.00 ; Gastroparesis 536.3 and Hypoacusis 389.9 [facility] [id number] [place] [address] 54882- 3866 Jan, [facility] [id number] [place] [address] 92835- 1899 Jan, [facility] [id number] [place] [address] 80973- 3343 Dec, [facility] [id number] [place] [address] 76075- 2254 Dec, [facility] [id number] [place] [address] 92870- 5850 Dec, [facility] [id number] [place] [address] 45914- 1059 Dec, Back pain 724.5 and Gastroparesis 536.3 [facility] [id number] [place] [address] 43373- 3594 Nov, [facility] [id number] [place] [address] [id number] Nov, Dental examination V72.2 [facility] [id number] [place] [address] 74378- 7681 Nov, [facility] [id number] [place] [address] 42255- 7969 Nov, [facility] [id number] [place] [address] 49697- 2373 Nov, Depressive disorder, not elsewhere classified 311 and No condition on Grady II V71.09 [facility] [id number] [place] [address] 72500- 0216 Nov, Diabetes 250.00 and Symptomatic menopausal or female climacteric states 627.2 [facility] [address] [address]- 2206 Oct, [facility] [address] [address]- 0086 Oct, Lumbar strain 847.2 [facility] [address] [address]- 9236 Oct, Gastroparesis 536.3 and Unspecified myalgia and myositis 729.1 [facility] [id number] [address] Aug, [facility] [id number] [address] Aug, [facility] [id number] [address] Jul, [facility] [id number] [address] Jul, [facility] [id number] [address] Jul, [facility] [id number] [address] Jul, [facility] [id number] [address] Jul, [facility] [id number] [address] Jun, [facility] [id number] [address] Jun, [facility] [id number] [address] Jun, [facility] [id number] [address] May, [facility] [place] [facility] [address] [id number] [place] [address] May, [facility] [place] [facility] [address] [id number] [place] [address] Mar, [facility] [place] [facility] [address] [id number] [place] [address] Mar, [facility] [place] [facility] [address] [id number] [place] [address] Mar, [facility] [place] [facility] [address] [id number] [place] [address] Mar, [facility] [place] [facility] [address] [id number] [place] [address] Mar, [facility] [place] [facility] [address] [id number] [place] [address] Mar, [facility] [place] [facility] [address] [address] [id number] [place] [address] Feb, [facility] [place] [facility] [address] [id number] [place] [address] Feb, [facility] [place] [facility] [address] [id number] [place] [address] Nov, [facility] [place] [facility] [address] [id number] [place] [address] Nov, [facility] [place] [facility] [address] [id number] [place] [address] Nov, [facility] [place] [facility] [address] [id number] [place] [address] Oct, [facility] [place] [facility] [address] [id number] [place] [address] September, [facility] [place] [facility] [address] [id number] [place] [address] Aug, [facility] [place] [facility] [address] [id number] [place] [address] 15 Aug, 2012 [facility] [address] [id number] [place] [address] 11 Aug, 2012 [facility] [place] [facility] [address] [id number] [place] [address] Aug, [facility] [address] [id number] [place] [address] 10 Aug, 2012 [facility] [place] [facility] [address] [id number] [place] [address] Aug, [facility] [address] [id number] [place] [address] Aug, [facility] [place] [facility] [address] [facility] [id number] [place] [address] Aug, [facility] [address] [id number] [place] [address] Jul, [facility] [address] [id number] [place] [address] Jul, [facility] [place] [facility] [address] [facility] [id number] [place] [address] Jun, [facility] [address] [facility] [id number] [place] [address] Jun, [facility] [place] [facility] [address] [id number] [place] [address] Jun, [facility] [place] [facility] [address] [facility] [id number] [place] [address] 08 Jun, 2012 [facility] [place] [facility] [address] [id number] [place] [address] Jun, [facility] [place] [facility] [address] [facility] [id number] [place] 07 Jun, 2012 [facility] [place] [facility] [address] [facility] [id number] [place] [address] Jun, [facility] [address] [facility] [id number] [place] [address] May, [facility] [address] [id number] [place] [address] May, [facility] [address] [facility] [id number] [place] [address] May, [facility] [address] [id number] [place] [address] May, [facility] [address] [id number] [place] [address] Mar, [facility] [address] [id number] [place] [address] Mar, [facility] [address] [id number] [place] [address] Jan, IMMUNIZATIONS No Known Immunizations SOCIAL HISTORY Never Assessed REASON FOR VISIT Oxycodone- 02/28 PLAN OF CARE VITAL SIGNS MEDICATIONS Medication Instructions Dosage Frequency Start Date End Date Duration Status Oxycodone-Acetaminophen 10-325 MG Orally 4 times a day 1 tablet as needed 6h Feb, 28 days Active RESULTS No Results PROCEDURES [...] vomitting-[facility] 03/05/17 Hospitalization History hospital stay at [facility] for stomach issues 2016
--- OUTSIDE RECORDS SUMMARY | 2018-01-27 20:12 | XMS REPORT ---
Author Author SHANE CALDWELL [facility] Address [address] [place] [address] Care Team Providers Care Electromechanical Technologist Name Role Phone HERNANDEZ SHANE PARIKH Unavailable PROBLEMS Type Condition ICD9-CM Code LHN39-HJ Code Onset Dates Condition Status SNOMED Code Problem History of colon polyps Z86.010 Active 901262192 Problem Asthma exacerbation J45.901 Active 478588441 Problem Primary insomnia F51.01 Active 8554104 Problem Tobacco dependency F17.200 Active 05852367 Problem Low TSH level R94.6 Active 421793306 Problem Annual physical exam Z00.00 Active 433083890 Problem Diabetic polyneuropathy associated with type 2 diabetes mellitus E11.42 Active 46137379 Problem Reactive depression F32.9 Active 82384142 Problem Migraine without aura and without status migrainosus, not intractable G43.009 Active 071404614 Problem PTSD (post-traumatic stress disorder) F43.10 Active 94767194 Problem Diabetes E11.9 Active 29609804 Problem Gastroparesis K31.84 Active 276414854 Problem Back pain M54.9 Active 265031598 Problem Neuropathy G62.9 Active 160897537 Problem Type 2 diabetes mellitus with diabetic autonomic (poly)neuropathy E11.43 Active 70062549 Problem Uncomplicated asthma, unspecified asthma severity J45.909 Active 192875415 Problem intermediate designer 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 Z79.4 Active 036984390 Problem Anorexia R63.0 Active 77582473 Problem Mixed hyperlipidemia E78.2 Active 753145290 Problem Weight loss R63.4 Active 524648905 ALLERGIES No Information ENCOUNTERS Encounter Location Date Diagnosis [facility] [address] [facility] [id number] [address] Jan, [facility] [address] [id number] [address] Dec, [place] [address] [address]28- 1770 06 Nov, 2017 Asthma exacerbation J45.901 [place] [address] 10865- 2510 27 Oct, 2017 PTSD (post-traumatic stress disorder) F43.10 [place] [address] 40531- 9156 26 Oct, 2017 [place] [address] 96525- 8081 19 Oct, 2017 PTSD (post-traumatic stress disorder) F43.10 and Tobacco dependency F17.200 [place] [address] 687133- 2653 Oct, [place] [address] 0[address] 9072 Oct, Other dorsalgia M54.89 [place] [address] 18112- 2754 Oct, Anorexia R63.0 [place] [address] 09986- 2084 September, PTSD (post-traumatic stress disorder) F43.10 [place] [address] 50266- 3614 September, Low TSH level R94.6 [place] [address] 01246- 2565 September, Other dorsalgia M54.89 [place] [address] 54935- 5457 September, Annual physical exam Z00.00 and Migraine without aura and without status migrainosus, not intractable G43.009 [place] [address] 53459- 0320 September, Abnormal TSH R94.6 and Dysfunction of left eustachian tube H69.82 [facility] [id number] [place] [address] 36803- 7951 Aug, [facility] [address] [place] 508202- 5097 Aug, Anorexia R63.0 [facility] [address] [place] [address] [id number] Aug, Dental examination Z01.20 and Xerostomia K11.7 [facility] [id number] [place] [address] 99444- 9976 Aug, Neuropathy G62.9 [facility] [address] 7066 Aug, [facility] [address] [id number] [place] [address] 24526 805 Aug, Other dorsalgia M54.89 [facility] [address] 865632- 8146 Aug, Type 2 diabetes mellitus with diabetic autonomic (poly) neuropathy E11.43 ; Diabetic polyneuropathy associated with type 2 diabetes mellitus E11.42 ; Bronchitis J40 ; Gastroparesis K31.84 and Reactive depression F32.9 [facility] [address] [id number] [place] [address] 53946- 0529 Aug, PTSD (post-traumatic stress disorder) F43.10 [facility] [address] [id number] [place] [address] 46276- 8152 Aug, Other dorsalgia M54.89 and Anorexia R63.0 [facility] [id number] [place] [address] 43698- 0525 Jul, [facility] [address] [address] [id number] [place], [place] [address] 567 Jul, Other dorsalgia M54.89 [facility] [address] [id number] [place] [address] 27378- 3104 Jul, [facility] [id number] [place] [address] 49157- 5087 Jul, [facility] [id number] [place] [address] 74931- 3503 Jul, PTSD (post-traumatic stress disorder) F43.10 [facility] [id number] [place] [address] 11132- 3066 Jul, [facility] [address] 54020- 6228 Jul, [facility] [id number] [place] [address] 51365- 2803 Jul, [facility] [address] 34715- 0076 Jul, Anorexia R63.0 [facility] [address] [place] [id number] [place] [address] 05094- 2406 Jun, [facility] [address] [id number] [place] [address] 97459- 4526 Jun, Vaginal discharge N89.8 ; Visit for gynecologic examination Z01.419 and Pelvic pressure in female R10.2 [place] [address] [place] [id number] [place] [address] 86149- 9963 Jun, [facility] [address] [id number] [place] [address] 52238- 8316 Jun, Other dorsalgia M54.89 [facility] [id number] [place] [address] 66419- 1306 16 Jun, 2017 [facility] [address] [address] [id number] [place] [address] 84976- 1596 07 Jun, 2017 [facility] [address] [id number] [place] [address] 47665- 9306 Jun, [facility] [id number] [place] [address] 32993- 2384 May, Back pain M54.9 [facility] [address] 40985 2546 May, Anorexia R63.0 [facility] [address] 89780 2546 May, Other dorsalgia M54.89 [facility] [address] 23914 2546 May, [facility] [address] 90869 2546 May, Bronchitis J40 [facility] [address] 48046 7316 May, Type 2 diabetes mellitus with diabetic autonomic (poly) neuropathy E11.43 ; intermediate designer 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 Z79.4 ; Back pain M54.9 and Neuropathy G62.9 [facility] [address] 18042 2546 May, Left breast mass N63.20 [facility] [address] 84549 2546 May, [facility] [address] 03557 2546 Apr, Other dorsalgia M54.89 [facility] [address] [id number] [place] [address] 02667 2546 Apr, Anorexia R63.0 [facility] [address] 41182 2546 Apr, Anorexia R63.0 [facility] [address] 88580 2546 Apr, Mass of left breast N63.20 [facility] [address] [place] [id number] [place] [address] 04521 2546 Apr, [facility] [address] 36698 254 Apr, [facility] [address] [id number] [place] [address] 31791- 4290 Apr, Diarrhea of presumed infectious origin A09 [facility] [address] 52989- 1115 Apr, Encounter for immunization Z23 [facility] [address] 12418- 4113 Apr, [facility] [address] 16440- 9297 Mar, Other dorsalgia M54.89 [facility] [address] 91855- 5462 Mar, [facility] [address] 57061- 1397 Mar, [facility] [address] 64417- 7509 Mar, Anorexia R63.0 [facility] [address] [id number] [place] [address] 32839- 2517 Mar, [facility] [address] 76499- 7399 Mar, Other dorsalgia M54.89 [facility] [address] [id number] [place] [address] 29383- 6962 Mar, [facility] [address] [id number] [place] [address] 51455- 1692 Mar, Encounter for immunization Z23 [facility] [address] [id number] [place] [address] 71263- 9268 Feb, Anorexia R63.0 [facility] [address] [id number] [place] [address] 39367- 0918 Feb, Diabetes E11.9 [facility] [id number] [place] [address] 61653- 6765 Feb, Back pain M54.9 and Diabetes E11.9 [facility] [address] [id number] [place] [address] 01239- 1031 Feb, Diabetes E11.9 [facility] [address] 24472- 6761 Feb, Neuropathy G62.9 [facility] [address] 64276- 8073 Feb, Encounter for immunization Z23 ; Epigastric pain R10.13 ; Weight loss, abnormal R63.4 and Neuropathy G62.9 [facility] [address] [id number] Feb, [facility] [address] 83108- 5748 Feb, [facility] [address] 19672- 7686 Feb, Intractable vomiting with nausea, unspecified vomiting type R11.2 [facility] [address] 11702 -4819 Feb, Chronic nausea R11.0 [facility] [address] 17474- 0830 Feb, Other dorsalgia M54.89 [facility] [address] [id number] [place] [address] 49096- 5931 Jan, [facility] [address] [place] [id number] [place] [address] 76637- 4209 Jan, [facility] [address] [id number] [place] [address] 07373- 9742 Jan, [facility] [address] 57566- 2135 Jan, [facility] [address] [place] [id number] [place] [address] 50925- 3958 Jan, Asthma exacerbation J45.901 ; Bronchitis J40 and Neuropathy G62.9 [facility] [address] [address] 2546 06 Jan, 2017 Anorexia R63.0 [facility] [address] [id number] [place] [address] 97818 2546 Jan, Other dorsalgia M54.89 [facility] [address] [place] [address] 91429 2546 Dec, [facility] [address] [id number] [place] [address] 86249 2546 Dec, [facility] [id number] [place] [address] 47555 2546 Dec, Anorexia R63.0 [facility] [address] [id number] [place] [address] 80283 2546 Dec, Primary insomnia F51.01 [facility] [id number] [place] [address] 43359 2546 Dec, Other dorsalgia M54.89 [facility] [id number] [place] [address] 66636- 3626 Dec, [facility] [address] [place] [address] 88135 2546 Nov, [facility] [address] [place] [address] 22393- 0887 Nov, [facility] [address] [place] [address] 84561 2546 Nov, [facility] [address] [place] [address] 59814- 3180 Nov, History of colon polyps Z86.010 [facility] [address] [place] [address] 10875- 7396 Nov, Weight loss R63.4 ; Nausea and vomiting, intractability of vomiting not specified, unspecified vomiting type R11.2 and Abnormal LFTs R79.89 [facility] [address] [id number] [address]- 9620 18 Nov, 2016 [facility] [id number] [place] [address] 04231- 7371 Nov, Neuropathy G62.9 and Pain in right knee M25.561 [facility] [address] [place] [address] 82042- 9045 12 Nov, 2016 Back pain M54.9 [facility] [id number] [place] [address] 07532- 2163 10 Nov, 2016 [facility] [id number] [place] [address] 11123- 0346 Nov, Bronchitis J40 [facility] [id number] [place] [address] 77032- 2437 Nov, Weight loss R63.4 [facility] [address] [place] [id number] [place] [address] 80085- 7052 16 Oct, 2016 Back pain M54.9 [facility] [id number] [place] [address] 28861- 6761 16 Oct, 2016 [facility] [id number] [place] [address] 85219- 9416 Oct, Back pain M54.9 [facility] [id number] [place] [address] 60596- 5940 Oct, Type 2 diabetes mellitus without complications E11.9 and Bronchitis J40 [facility] [address] [address]- 7093 05 Oct, 2016 [facility] [id number] [place] [address] 81228- 0969 Oct, [facility] [address] [place] [address] 22257- 7461 September, Gastroparesis K31.84 ; Type 2 diabetes mellitus with diabetic autonomic (poly)neuropathy E11.43 and Neuropathy G62.9 [facility] [id number] [place] [address] 65510- 2067 September, Other dorsalgia M54.89 [facility] [id number] [place] [address] 67590- 5546 September, [facility] [id number] [place] [address] 38603- 8755 September, [facility] [id number] [place] [address] 20380- 9521 Aug, Gastroparesis K31.84 and Radicular leg pain M54.10 [facility] [id number] [place] [address] 58895- 8665 Aug, Anorexia R63.0 [facility] [address] [id number] [place] [address] 68854- 3693 Aug, Bronchitis J40 [facility] [address] 98475- 5127 Aug, Back pain M54.9 [facility] [id number] [place] [address] 67552- 0362 Aug, Routine gynecological examination Z01.419 ; Routine screening for STI (sexually transmitted infection) Z11.3 and Yeast infection of the vagina B37.3 [facility] [id number] [place] [address] 45212- 5070 Jul, Other dorsalgia M54.89 [facility] [id number] [place] [address] 91577- 1599 Jul, Diabetes E11.9 and Gastroparesis K31.84 [facility] [id number] [place] [address] 36467- 5449 Jun, [facility] [id number] [place] [address] 57407- 8826 Jun, Back pain M54.9 [facility] [id number] [place] [address] 16721- 9159 Jun, Neuropathy G62.9 [facility] [address] [place] [address] [id number] 02 Jun, 2016 Encounter for dental examination Z01.20 [facility] [id number] [place] [address] 31275- 2548 01 Jun, 2016 Gastroparesis 536.3 and Anorexia R63.0 [facility] [address] 40639 2547 27 May, 2016 Other dorsalgia M54.89 [facility] [address] 05187- 6807 May, Periumbilical abdominal pain R10.33 ; Weight loss R63.4 and Gastroparesis K31.84 [facility] [address] 03255- 2711 May, Back pain M54.9 [facility] [address] 66646 2543 Apr, Anorexia R63.0 [facility] [address] 48872 2546 Apr, Anorexia R63.0 [facility] [id number] [place] [address] 26366 2549 16 Apr, 2016 Back pain M54.9 [facility] [id number] [place] [address] 94010 2546 15 Apr, 2016 Back pain M54.9 [facility] [id number] [place] [address] 68183 2546 Apr, [facility] [address] 44505 2546 Apr, Bronchitis J40 and Neuropathy G62.9 [facility] [id number] [place] [address] 94711 2546 Apr, Neuropathy G62.9 [facility] [address] [place] [address]- 8729 Apr, [facility] [id number] [place] [address] 21235- 8888 Apr, Back pain M54.9 [facility] [id number] [place] [address] 74235- 7712 Mar, Type 2 diabetes mellitus with diabetic autonomic (poly) neuropathy E11.43 [facility] [address] 43646- 9785 Mar, Type 2 diabetes mellitus without complications E11.9 [facility] [id number] [place] [address] 81864- 5744 Mar, Neuropathy G62.9 [facility] [id number] [place] [address] 04279- 1900 Mar, [place] [address] 03146- 2867 Mar, Breast cancer screening Z12.39 [facility] [id number] [place] [address] 13238- 6826 Mar, Other dorsalgia M54.89 [facility] [id number] [place] [address] 36659- 1739 Feb, [facility] [id number] [place] [address] 31840- 8835 Jan, Neuropathy G62.9 ; Type 2 diabetes mellitus with diabetic autonomic (poly)neuropathy E11.43 ; Uncomplicated asthma, unspecified asthma severity J45.909 and Encounter for immunization Z23 [facility] [id number] [place] [address] 49157- 8495 Jan, [place] [id number] [place] [address] 54669- 2646 Jan, [facility] [id number] [place] [address] 92383- 2137 Dec, [facility] [address] [place] [address] 02451- 1871 Dec, [facility] [id number] [place] [address] 69076- 9632 Nov, [facility] [id number] [place] [address] 17276- 6929 Nov, Back pain M54.9 [facility] [id number] [place] [address] 82190- 3861 Nov, Neuropathy G62.9 ; Mixed hyperlipidemia E78.2 ; Type 2 diabetes mellitus with diabetic autonomic (poly)neuropathy E11.43 and MCC 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 Z79.4 [facility] [id number] [place] [address] 86844- 5728 Oct, [facility] [id number] [place] [address] 45698- 2822 Oct, Other dorsalgia M54.89 [facility] [id number] [place] [address] 77615- 0720 September, Primary insomnia F51.01 [facility] [id number] [place] [address] 38969- 7570 September, [facility] [id number] [place] [address] 35666- 2349 Aug, Other dorsalgia M54.89 [facility] [id number] [place] [address] 26233- 5694 Jul, [facility] [id number] [place] [address] 11332- 7024 Jul, Other dorsalgia M54.89 [facility] [id number] [place] [address] 08620- 5477 Jul, Diabetes E11.9 ; Back pain M54.9 ; Neuropathy G62.9 and Gastroparesis K31.84 [facility] [id number] [place] [address] 77313- 4405 Jun, [facility] [id number] [address]- 6046 Jun, Other dorsalgia M54.89 [facility] [id number] [place] [address] 60243- 0656 May, [facility] [id number] [place] [address] 37280 2542 May, Radicular leg pain M54.10 and Other dorsalgia M54.89 [facility] [address] [facility] [id number] [place] [address] 30825- 9653 Apr, [facility] [id number] [place] [address] 87723- 8156 Mar, [facility] [id number] [place] [address] 75863- 4858 Mar, [facility] [id number] [place] [address] 31302- 2001 Mar, Radicular leg pain M54.10 [facility] [id number] [place] [address] 01534- 5823 Feb, [facility] [id number] [place] [address] 56719- 1285 Feb, [facility] [id number] [place] [address] 98233- 2149 Feb, [facility] [id number] [place] [address] 11094- 2548 Jan, [facility] [address] [place] [address] 89590- 9047 Jan, IBS (irritable bowel syndrome) 564.1 [facility] [id number] [place] [address] 06603- 6891 Jan, [facility] [address] [place] [address] 71302- 2547 Jan, [facility] [address] [address]- 3000 Jan, Diabetes mellitus without mention of complication, type II or unspecified type, not stated as uncontrolled 250.00 ; Gastroparesis 536.3 and Hypoacusis 389.9 [facility] [id number] [address] Jan, [facility] [id number] [place] [address] [id number]- 2639 Jan, [facility] [id number] [place] [address] 55208- 8154 Dec, [facility] [id number] [place] [address] 33793- 3808 Dec, [facility] [id number] [place] [address] [id number]- 1651 Dec, [facility] [id number] [place] [address] 47838- 8197 Dec, Back pain 724.5 and Gastroparesis 536.3 [facility] [id number] [place] [address] 96659- 5775 Nov, [facility] [id number] [id number] Nov, Dental examination V72.2 [facility] [id number] [place] [address] 61989- 8258 Nov, [facility] [id number] [address] Nov, [facility] [id number] [place] [address] 24400- 0359 Nov, Depressive disorder, not elsewhere classified 311 and No condition on [place] II V71.09 [facility] [id number] [address] Nov, Diabetes 250.00 and Symptomatic menopausal or female climacteric states 627.2 [facility] [address] [facility] [id number] [address] Oct, [facility] [address] [address] Oct, Lumbar strain 847.2 [facility] [id number] [address] Oct, Gastroparesis 536.3 and Unspecified myalgia and myositis 729.1 [facility] [address] [facility] [id number] [address] Aug, [facility] [facility] [id number] [place] [address] Aug, [facility] [id number] [address] Jul, [facility] [id number] [address] Jul, [facility] [id number] [address] Jul, [facility] [id number] [address] Jul, [facility] [id number] [address] Jul, [facility] [id number] [address] Jun, [facility] [id number] [address] [address] Jun, [facility] [id number] [address] [address] Jun, [facility] [id number] [address] May, [facility] [id number] [address] May, [facility] [place] [facility] [address] [id number] [place] [address] Mar, [facility] [place] [facility] [address] [id number] [place] [address] Mar, [facility] [place] [facility] [address] [id number] [place] [address] Mar, [facility] [place] [facility] [address] [id number] [place] [address] Mar, [facility] [place] [facility] [address] [id number] [place] [address] Mar, [facility] [place] [facility] [address] [id number] [place] [address] Mar, [facility] [place] [facility] [address] [id number] [place] [address] Feb, [facility] [place] [facility] [address] [id number] [place] [address] Feb, [facility] [place] [facility] [address] [id number] [place] [address] 39[address] Nov, [facility] [place] [facility] [address] [id number] [place] [address]- 4631 Nov, [facility] [place] [facility] [address] [id number] [place] [address]594 Nov, [facility] [place] [facility] [address] [id number] [place] [address] Oct, [facility] [place] [facility] [address] [id number] [place] [address] September, [facility] [place] [facility] [address] [id number] [place] [address] Aug, [facility] [place] [facility] [address] [id number] [place] [address] 15 Aug, 2012 [facility] [place] [facility] [address] [id number] [place] [address] 11 Aug, 2012 [facility] [address] [id number] [place] [address] Aug, [facility] [address] [id number] [place] [address]- [address] 10 Aug, 2012 [facility] [address] [id number] [place] [address]- [address] Aug, [facility] [address] [id number] [place] [address] Aug, [facility] [address] [id number] [place] [address] Aug, [facility] [address] [facility] [id number] [place] [address] Jul, [facility] [address] [id number] [place] [address] Jul, [facility] [address] [id number] [place] [address]- [address]28 Jun, [facility] [address] [id number] [place] [address] Jun, [facility] [address] [id number] [place] [address] Jun, [facility] [address] [facility] [id number] [address] Jun, [facility] [address] [id number] [place] [address]- [address] Jun, [facility] [address] [id number] [place] [address]- [address] Jun, [facility] [address] [facility] [id number] [address] 04 Jun, 2012 [facility] [address] [id number] [address]- [address] May, [facility] [address] [facility] [id number] [address] May, [facility] [address] [facility] [id number] [address] May, [facility] [address] [facility] [id number] [address]- [address] May, [facility] [address] [facility] [id number] [address]- [address] Mar, [facility] [address] [facility] [id number] [address] Mar, [facility] [address] [facility] [id number] [address] Jan, IMMUNIZATIONS No Known Immunizations SOCIAL HISTORY Never Assessed REASON FOR VISIT Rx from lab results PLAN OF CARE VITAL SIGNS MEDICATIONS Medication Instructions Dosage Frequency Start Date End Date Duration Status Diflucan 150 MG Orally Once a day 1 tablet 24h Jun, Jul, 2 days Active RESULTS No Results PROCEDURES No [...] vomitting-VC 03/05/17 Hospitalization History hospital stay at [facility] for stomach issues 2016
--- OUTSIDE RECORDS SUMMARY | 2018-01-27 20:13 | XMS REPORT ---
Author Author HORACE HIGGINS [facility] Address [address] [place] [address] Care Team Providers Care Warper Fixer Name Role Phone HORACE HIGGINS Unavailable PROBLEMS Type Condition ICD9-CM Code ALE05-AS Code Onset Dates Condition Status SNOMED Code Problem Type 2 diabetes mellitus with diabetic autonomic (poly)neuropathy E11.43 Active 62394884 Problem Uncomplicated asthma, unspecified asthma severity J45.909 Active 414620929 Problem telecommunicator 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 Z79.4 Active 871225711 Problem PTSD (post-traumatic stress disorder) F43.10 Active 27627348 Problem Asthma exacerbation J45.901 Active 789375651 Problem Weight loss R63.4 Active 192129834 Problem Anorexia R63.0 Active 68966668 Problem Primary insomnia F51.01 Active 1797396 Problem History of colon polyps Z86.010 Active 388218898 Problem Neuropathy G62.9 Active 242013882 Problem Diabetes E11.9 Active 64595172 Problem Depressive disorder, not elsewhere classified 311 Active 67945297 Problem Gastroparesis K31.84 Active 033177121 Problem Back pain M54.9 Active 861714457 Problem Mixed hyperlipidemia E78.2 Active 847231558 ALLERGIES No Information ENCOUNTERS Encounter Location Date Diagnosis [facility] [id number] [id number] Aug, [facility] [address] [address] Aug, [facility] [id number] [place] [address] 63511- 0435 Aug, [facility] [address] [address] 0562 Aug, Other dorsalgia M54.89 and Anorexia R63.0 [facility] [id number] [address] 1006 Jul, [facility] [id number] [place] [address] 73401 2546 Jul, Other dorsalgia M54.89 [facility] [id number] [place] [address] 78192 2546 Jul, [facility] [id number] [place] [address] 66774 2546 Jul, [facility] [id number] [place] [address] 73162 2546 Jul, PTSD (post-traumatic stress disorder) F43.10 [facility] [id number] [place] [address] 23682- 6826 Jul, [facility] [id number] [place] [address] 08789- 0476 Jul, [facility] [id number] [place] [address] 12270 2546 Jul, [facility] [id number] [place] [address] 46488- 6076 Jul, Anorexia R63.0 [facility] [id number] [place] [address] 24026- 2916 Jun, [facility] [id number] [place] [address] 93926 2546 Jun, Vaginal discharge N89.8 ; Visit for gynecologic examination Z01.419 and Pelvic pressure in female R10.2 [facility] [id number] [place] [address] 13982- 4186 Jun, [facility] [id number] [place] [address] 88336- 8636 Jun, Other dorsalgia M54.89 [facility] [id number] [place] [address] 84848- 7216 16 Jun, 2017 [facility] [id number] [place] [address] 54326- 7513 Jun, [facility] [id number] [place] [address] 94631- 9696 Jun, [facility] [id number] [place] [address] 78117- 0839 May, Back pain M54.9 [facility] [address] 30859- 8836 May, Anorexia R63.0 [facility] [id number] [place] [address] 95136- 9819 May, Other dorsalgia M54.89 [facility] [id number] [place] [address] 65491- 3120 May, [facility] [address] 46718- 6849 May, Bronchitis J40 [facility] [id number] [place] [address] 55383- 5212 May, Type 2 diabetes mellitus with diabetic autonomic (poly) neuropathy E11.43 ; care home 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 Z79.4 ; Back pain M54.9 and Neuropathy G62.9 [facility] [id number] [place] [address] 98180- 8415 May, Left breast mass N63.20 [facility] [id number] [place] [address] 98058- 1059 May, [facility] [id number] [place] [address] 32760- 2828 Apr, Other dorsalgia M54.89 [facility] [id number] [place] [address] 79987- 2016 Apr, Anorexia R63.0 [facility] [id number] [place] [address] 17203- 4806 Apr, Anorexia R63.0 [place] [id number] [place] [address] 71265- 6715 Apr, Mass of left breast N63.20 [facility] [id number] [place] [address] 88909- 1858 Apr, [facility] [id number] [place] [address] 77617- 0760 Apr, [facility] [id number] [place] [address] 18548- 0538 Apr, Diarrhea of presumed infectious origin A09 [facility] [id number] [place] [address] 73836- 9067 Apr, Encounter for immunization Z23 [facility] [id number] [place] [address] 97745- 3577 Apr, [facility] [id number] [place] [address] 72203- 9890 Mar, Other dorsalgia M54.89 [facility] [id number] [place] [address] 61939- 0212 Mar, [facility] [id number] [place] [address] 07916- 9470 Mar, [facility] [id number] [place] [address] 78718- 3785 Mar, Anorexia R63.0 [facility] [id number] [place] [address] 32302- 2359 Mar, [facility] [id number] [place] [address] 90118- 5692 Mar, Other dorsalgia M54.89 [facility] [id number] [place] [address] 30192- 8075 Mar, [facility] [id number] [place] [address] 88279- 2556 Mar, Encounter for immunization Z23 [facility] [id number] [place] [address] 84789- 8452 31 Feb, 2017 Anorexia R63.0 [facility] [address] 10147- 3030 Feb, Diabetes E11.9 [facility] [id number] [place] [address] 55152- 5271 Feb, Back pain M54.9 and Diabetes E11.9 [facility] [address] 50400- 1824 Feb, Diabetes E11.9 [facility] [address] 26282- 8555 Feb, Neuropathy G62.9 [facility] [id number] [place] [address] 75649- 6407 Feb, Encounter for immunization Z23 ; Epigastric pain R10.13 ; Weight loss, abnormal R63.4 and Neuropathy G62.9 [facility] [address] [id number] Feb, [facility] [address] 60267- 7129 Feb, [facility] [id number] [place] [address] 83122- 6882 Feb, Intractable vomiting with nausea, unspecified vomiting type R11.2 [facility] [id number] [place] [address] 76188 -6248 Feb, Chronic nausea R11.0 [facility] [id number] [place] [address] 66967- 7862 Feb, Other dorsalgia M54.89 [facility] [id number] [place] [address] 66863- 7018 Jan, [facility] [id number] [place] [address] 65133- 7693 Jan, [facility] [address] [place] [address] 2546 08 Jan, 2017 [facility] [id number] [place] [address] 59589 2546 Jan, [facility] [id number] [place] [address] 95929 2546 Jan, Asthma exacerbation J45.901 ; Bronchitis J40 and Neuropathy G62.9 [facility] [address] 72000 2546 06 Jan, 2017 Anorexia R63.0 [facility] [id number] [place] [address] 52999 2546 Jan, Other dorsalgia M54.89 [facility] [id number] [place] [address] 28258- 7686 Dec, [facility] [id number] [place] [address] 46474- 0996 Dec, [facility] [id number] [place] [address] 87472 2546 15 Dec, 2016 Anorexia R63.0 [facility] [id number] [place] [address] 07518- 3046 Dec, Primary insomnia F51.01 [facility] [id number] [place] [address] 54804- 9357 Dec, Other dorsalgia M54.89 [facility] [id number] [place] [address] 45822- 4734 Dec, [facility] [id number] [place] [address] 85920- 7665 Nov, [facility] [id number] [place] [address] 97083 2546 Nov, [facility] [id number] [place] [address] 75410- 0387 Nov, [facility] [id number] [place] [address] 63338- 8870 Nov, History of colon polyps Z86.010 [facility] [id number] [place] [address] 91356- 4351 Nov, Weight loss R63.4 ; Nausea and vomiting, intractability of vomiting not specified, unspecified vomiting type R11.2 and Abnormal LFTs R79.89 [facility] [id number] [place] [address] 80686- 5218 Nov, [facility] [id number] [place] [address] 03346- 5296 Nov, Neuropathy G62.9 and Pain in right knee M25.561 [place] [id number] [place] [address] 85388- 6400 Nov, Back pain M54.9 [facility] [id number] [place] [address] 73236- 8946 10 Nov, 2016 [facility] [id number] [place] [address] 87094- 8853 08 Nov, 2016 Bronchitis J40 [facility] [id number] [place] [address] 47479- 4639 03 Nov, 2016 Weight loss R63.4 [facility] [id number] [place] [address] 92667- 5178 16 Oct, 2016 Back pain M54.9 [facility] [id number] [place] [address] 55772- 6000 16 Oct, 2016 [facility] [id number] [place] [address] 65260- 2322 14 Oct, 2016 Back pain M54.9 [facility] [id number] [place] [address] 71160- 8617 13 Oct, 2016 Type 2 diabetes mellitus without complications E11.9 and Bronchitis J40 [facility] [id number] [place] [address] 61020- 9737 05 Oct, 2016 [place] [id number] [place] [address] 60498- 0128 Oct, [place] [address] 02361- 7891 September, Gastroparesis K31.84 ; Type 2 diabetes mellitus with diabetic autonomic (poly)neuropathy E11.43 and Neuropathy G62.9 [place] [address] 05632- 3449 September, Other dorsalgia M54.89 [place] [address] 04332- 9397 September, [place] [address] 00762- 4356 September, [place] [address] 49902- 4939 Aug, Gastroparesis K31.84 and Radicular leg pain M54.10 [place] [id number] [place] [address] 00024- 0338 Aug, Anorexia R63.0 [place] [address] 07757- 1302 Aug, Bronchitis J40 [place] [id number] [place] [address] 76763- 4164 Aug, Back pain M54.9 [place] [id number] [place] [address] 41573- 6583 Aug, Routine gynecological examination Z01.419 ; Routine screening for STI (sexually transmitted infection) Z11.3 and Yeast infection of the vagina B37.3 [place] [id number] [place] [address] 45989- 4466 Jul, Other dorsalgia M54.89 [place] [id number] [place] [address] 31035- 5894 Jul, Diabetes E11.9 and Gastroparesis K31.84 [place] [id number] [place] [address] 39786- 7521 Jun, [facility] [address] 88503- 9613 24 Jun, 2016 Back pain M54.9 [facility] [address] 43756- 6502 14 Jun, 2016 Neuropathy G62.9 [facility] [address] [id number] 02 Jun, 2016 Encounter for dental examination Z01.20 [facility] [address] 71964- 6430 Jun, Gastroparesis 536.3 and Anorexia R63.0 [facility] [address] 28981- 7049 May, Other dorsalgia M54.89 [facility] [address] 41588- 6698 May, Periumbilical abdominal pain R10.33 ; Weight loss R63.4 and Gastroparesis K31.84 [facility] [address] 29405- 4879 May, Back pain M54.9 [facility] [address] 32967 2546 Apr, Anorexia R63.0 [facility] [address] 81427 2546 Apr, Anorexia R63.0 [facility] [address] 63334- 4437 Apr, Back pain M54.9 [facility] [address] 17496 2543 15 Apr, 2016 Back pain M54.9 [facility] [address] 21802- 8597 Apr, [facility] [id number] [place] [address] 52563- 5831 Apr, Bronchitis J40 and Neuropathy G62.9 [facility] [id number] [place] [address] 71716- 9994 Apr, Neuropathy G62.9 [facility] [address] 25583- 3706 Apr, [facility] [address] 71847- 4391 Apr, Back pain M54.9 [place] [address] 09961- 0901 Mar, Type 2 diabetes mellitus with diabetic autonomic (poly) neuropathy E11.43 [place] [address] 15935- 4714 Mar, Type 2 diabetes mellitus without complications E11.9 [facility] [id number] [place] [address] 72840- 4661 Mar, Neuropathy G62.9 [place] [address] 17408- 2869 Mar, [place] [address] 59045- 6389 Mar, Breast cancer screening Z12.39 [place] [id number] [place] [address] 64353- 7251 Mar, Other dorsalgia M54.89 [facility] [id number] [place] [address] 86611- 2306 Feb, [place] [address] 14768- 6814 Jan, Neuropathy G62.9 ; Type 2 diabetes mellitus with diabetic autonomic (poly)neuropathy E11.43 ; Uncomplicated asthma, unspecified asthma severity J45.909 and Encounter for immunization Z23 [facility] [address] [address]- 6921 Jan, [facility] [id number] [place] [address] 58099- 6208 Jan, [facility] [id number] [place] [address] 96023- 8619 Dec, [facility] [id number] [place] [address] 78778- 0974 Dec, [facility] [id number] [place] [address] 39217- 5052 Nov, [facility] [id number] [place] [address] 51131- 8395 Nov, Back pain M54.9 [facility] [id number] [place] [address] 60385- 5926 Nov, Neuropathy G62.9 ; Mixed hyperlipidemia E78.2 ; Type 2 diabetes mellitus with diabetic autonomic (poly)neuropathy E11.43 and care home 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 Z79.4 [facility] [id number] [place] [address] 23533- 9290 Oct, [facility] [id number] [place] [address] 81361- 5773 Oct, Other dorsalgia M54.89 [facility] [id number] [place] [address] 86154- 6610 September, Primary insomnia F51.01 [facility] [id number] [place] [address] 88938- 9817 September, [facility] [id number] [place] [address] 49667- 0195 Aug, Other dorsalgia M54.89 [facility] [id number] [place] [address] 24393- 3921 Jul, [facility] [id number] [place] [address] 25085- 5663 Jul, Other dorsalgia M54.89 [facility] [id number] [place] [address] 44190- 3226 Jul, Diabetes E11.9 ; Back pain M54.9 ; Neuropathy G62.9 and Gastroparesis K31.84 [facility] [id number] [place] [address] 72913- 4298 Jun, [facility] [id number] [place] [address] 95761- 6756 Jun, Other dorsalgia M54.89 [facility] [id number] [place] [address] 02777- 9838 May, [facility] [id number] [place] [address] 46977- 3785 May, Radicular leg pain M54.10 and Other dorsalgia M54.89 [facility] [id number] [place] [address] 45033- 1491 Apr, [facility] [id number] [place] [address] 77464- 6044 Mar, [facility] [id number] [place] [address] 42689- 1193 Mar, [facility] [address] [place] [address] 81209- 2477 Mar, Radicular leg pain M54.10 [facility] [id number] [place] [address] 31166- 5126 Feb, [facility] [id number] [place] [address] 93238- 8459 Feb, [facility] [id number] [place] [address] 24137- 0506 Feb, [facility] [address] [place] [address] 17916- 5146 Jan, [facility] [id number] [place] [address] 39037- 0042 Jan, IBS (irritable bowel syndrome) 564.1 [facility] [id number] [place] [address] 24760- 7672 Jan, [facility] [id number] [place] [address] 12153- 5919 Jan, [facility] [id number] [place] [address] 99995- 1982 Jan, Diabetes mellitus without mention of complication, type II or unspecified type, not stated as uncontrolled 250.00 ; Gastroparesis 536.3 and Hypoacusis 389.9 [facility] [id number] [place] [address] 16402- 4228 Jan, [facility] [id number] [place] [address] 93080- 9713 Jan, [facility] [id number] [place] [address] 33862- 1286 Dec, [facility] [id number] [place] [address] 28354- 2438 Dec, [facility] [id number] [place] [address] 03583- 9333 Dec, [facility] [id number] [place] [address] 93122- 7967 Dec, Back pain 724.5 and Gastroparesis 536.3 [facility] [id number] [place] [address] 53486- 3654 Nov, [facility] [id number] [place] [address] [id number] Nov, Dental examination V72.2 [facility] [address] [address]- 4123 Nov, [facility] [id number] [place] [address] 92590- 9641 Nov, [facility] [address] [address]- 2311 Nov, Depressive disorder, not elsewhere classified 311 and No condition on Hydes II V71.09 [facility] [address] [address]- 5357 Nov, Diabetes 250.00 and Symptomatic menopausal or female climacteric states 627.2 [facility] [id number] [place] [address] Oct, [facility] [id number] [place] [address] Oct, Lumbar strain 847.2 [facility] [id number] [place] [address]- [address] Oct, Gastroparesis 536.3 and Unspecified myalgia and myositis 729.1 [facility] [id number] [place] [address]- 269[address] Aug, [facility] [id number] [address] Aug, [facility] [id number] [address] Jul, [facility] [id number] [address] Jul, [facility] [id number] [address] Jul, [facility] [id number] [address] Jul, [facility] [id number] [address] Jul, [facility] [id number] [address] Jun, [facility] [id number] [place] [address]- [address] Jun, [facility] [place] [facility] [address] [id number] [place] [address] Jun, [facility] [place] [facility] [address] [id number] [place] [address] May, [facility] [place] [facility] [address] [id number] [place] [address] May, [facility] [place] [facility] [address] [id number] [place] [address] Mar, [facility] [place] [facility] [address] [id number] [place] [address] Mar, [facility] [place] [facility] [address] [id number] [place] [address]77 Mar, [facility] [place] [facility] [address] [id number] [place] [address]- [address] Mar, [facility] [place] [facility] [address] [id number] [place] [address] Mar, [facility] [place] [facility] [address] [id number] [place] [address] Mar, [facility] [place] [facility] [address] [facility] [id number] [place] [address] Feb, [facility] [place] [facility] [address] [id number] [place] [address] Feb, [facility] [place] [facility] [address] [id number] [place] [address] Nov, [facility] [place] [facility] [address] [id number] [place] [address] Nov, [facility] [place] [facility] [address] [id number] [place] [address] Nov, [facility] [place] [facility] [address] [facility] [id number] [place] [address] Oct, [facility] [place] [facility] [address] [id number] [place] [address] September, [facility] [address] [id number] [place] [address] Aug, [facility] [place] [facility] [address] [id number] [place] [address]- [address] Aug, [facility] [place] [facility] [address] [id number] [place] [address] Aug, [facility] [place] [facility] [address] [id number] [place] [address] 8066 Aug, [facility] [place] [facility] [address] [id number] [place] [address]- [address] Aug, [facility] [address] [id number] [place] [address] Aug, [facility] [address] [id number] [place] [address] Aug, [facility] [address] [id number] [place] [address] 140[address] Aug, [facility] [place] [facility] [address] [id number] [place] [address] Jul, [facility] [place] [facility] [address] [id number] [place] [address] Jul, [facility] – [facility] [place] [facility] [address] [id number] [place] [address] Jun, [facility] [place] [facility] [address] [id number] [place] [address] Jun, [facility] [place] [facility] [address] [id number] [place] [address] Jun, [facility] [place] [facility] [address] [id number] [place] [address] Jun, [facility] [place] [facility] [address] [id number] [address] Jun, [facility] [address] [id number] [address] Jun, [facility] [address] [id number] [address] Jun, [facility] [address] [id number] [address] May, [facility] [id number] [address] May, [facility] [id number] [address] May, [facility] [id number] [address] May, [facility] [id number] [address] Mar, [facility] [address] [id number] [address] Mar, [facility] [address] [id number] [address] Jan, IMMUNIZATIONS No Known Immunizations SOCIAL HISTORY [...] vomitting-[facility] 03/05/17 Hospitalization History hospital stay at [facility] for stomach issues 2016
--- OUTSIDE RECORDS SUMMARY | 2018-01-27 20:13 | XMS REPORT ---
Author Author HORACE HIGGINS [facility] Address [address] [place] [address] Care Team Providers Care Belt Lacer Name Role Phone HORACE HIGGINS Unavailable PROBLEMS Type Condition ICD9-CM Code [id number] Code Onset Dates Condition Status SNOMED Code Problem Weight loss R63.4 Active 186769779 Problem Primary insomnia F51.01 Active 5504394 Problem History of colon polyps Z86.010 Active 950474977 Problem Annual physical exam Z00.00 Active 667822140 Problem Migraine without aura and without status migrainosus, not intractable G43.009 Active 768537154 Problem Reactive depression F32.9 Active 89469330 Problem Asthma exacerbation J45.901 Active 810007171 Problem PTSD (post-traumatic stress disorder) F43.10 Active 56396890 Problem Diabetic polyneuropathy associated with type 2 diabetes mellitus E11.42 Active 93231729 Problem Neuropathy G62.9 Active 565386300 Problem Diabetes E11.9 Active 56907672 Problem Low TSH level R94.6 Active 657723785 Problem Back pain M54.9 Active 893776325 Problem Mixed hyperlipidemia E78.2 Active 166146205 Problem Type 2 diabetes mellitus with diabetic autonomic (poly)neuropathy E11.43 Active 13070154 Problem Gastroparesis K31.84 Active 892543051 Problem Uncomplicated asthma, unspecified asthma severity J45.909 Active 132108143 Problem long term care 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 Z79.4 Active 919257890 Problem Anorexia R63.0 Active 72100354 ALLERGIES No Information ENCOUNTERS Encounter Location Date Diagnosis [facility] [id number] [address] Oct, [facility] [id number] [address] Oct, [facility] [id number] [place] [address] 41549- 0230 Oct, Anorexia R63.0 [place] [id number] [place] [address] 866501- 7636 September, PTSD (post-traumatic stress disorder) F43.10 [place] [address] 40503- 8436 September, Low TSH level R94.6 [place] [address] 59442- 2353 September, Other dorsalgia M54.89 [place] [address] 37714- 3394 September, Annual physical exam Z00.00 and Migraine without aura and without status migrainosus, not intractable G43.009 [place] [address] 22065- 7373 September, Abnormal TSH R94.6 and Dysfunction of left eustachian tube H69.82 [place] [id number] [place] [address] 57704- 4582 Aug, [facility] [address] 92508- 0236 Aug, Anorexia R63.0 [facility] [address] [id number] Aug, Dental examination Z01.20 and Xerostomia K11.7 [facility] [id number] [place] [address] 18456- 7822 Aug, Neuropathy G62.9 [place] [address] 21550- 1070 Aug, [place] [address]64- 0377 Aug, Other dorsalgia M54.89 [place] [address] 71775- 9825 Aug, Type 2 diabetes mellitus with diabetic autonomic (poly) neuropathy E11.43 ; Diabetic polyneuropathy associated with type 2 diabetes mellitus E11.42 ; Bronchitis J40 ; Gastroparesis K31.84 and Reactive depression F32.9 [facility] [address] 56262 2546 Aug, PTSD (post-traumatic stress disorder) F43.10 [facility] [address] 86497 2546 Aug, Other dorsalgia M54.89 and Anorexia R63.0 [facility] [address] 14893 2546 Jul, [facility] [address] 15034- 0216 Jul, Other dorsalgia M54.89 [facility] [address] 61507- 7536 Jul, [facility] [address] 51299 2546 Jul, [facility] [address] 70436- 8740 Jul, PTSD (post-traumatic stress disorder) F43.10 [facility] [id number] [place] [address] 73433- 2116 Jul, [facility] [address] 72223 2546 Jul, [facility] [id number] [place] [address] 75903 2546 Jul, [facility] [address] 55412 2546 Jul, Anorexia R63.0 [facility] [id number] [place] [address] 56557- 8986 Jun, [facility] [address] 13651762- 2546 Jun, Vaginal discharge N89.8 ; Visit for gynecologic examination Z01.419 and Pelvic pressure in female R10.2 [facility] [id number] [place] [address] 21474- 9836 Jun, [facility] [id number] [place] [address] 17069- 2305 Jun, Other dorsalgia M54.89 [facility] [address] 24205- 9465 Jun, [facility] [address] 61488- 1756 Jun, [facility] [address] 39535- 5883 Jun, [facility] [address] 61945- 8381 May, Back pain M54.9 [facility] [id number] [place] [address] 27657- 8023 May, Anorexia R63.0 [facility] [address] 00453- 8243 May, Other dorsalgia M54.89 [facility] [id number] [place] [address] 62617- 7126 May, [facility] [id number] [place] [address] 12167- 3817 May, Bronchitis J40 [facility] [id number] [place] [address] 56439- 7696 May, Type 2 diabetes mellitus with diabetic autonomic (poly) neuropathy E11.43 ; half-way 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 Z79.4 ; Back pain M54.9 and Neuropathy G62.9 [facility] [id number] [place] [address] 74079- 5042 May, Left breast mass N63.20 [facility] [address] [place] [address] 80665- 9431 May, [facility] [id number] [place] [address] 95780- 7616 Apr, Other dorsalgia M54.89 [facility] [id number] [place] [address] 03810 2546 Apr, Anorexia R63.0 [facility] [id number] [place] [address] 93379 2546 Apr, Anorexia R63.0 [facility] [id number] [place] [address] 84808- 5818 Apr, Mass of left breast N63.20 [facility] [id number] [place] [address] 95486- 9832 Apr, [facility] [address] 10649- 3433 Apr, [facility] [id number] [place] [address] 38808- 9602 Apr, Diarrhea of presumed infectious origin A09 [facility] [id number] [place] [address] 93613- 8608 Apr, Encounter for immunization Z23 [facility] [id number] [place] [address] 29350- 1495 Apr, [facility] [id number] [place] [address] 42795- 8163 Mar, Other dorsalgia M54.89 [facility] [id number] [place] [address] 24156 2546 Mar, [facility] [id number] [place] [address] 05147 2544 Mar, [facility] [id number] [place] [address] 97863- 5186 Mar, Anorexia R63.0 [facility] [id number] [place] [address] 68875- 0401 Mar, [facility] [address] 54670- 8181 Mar, Other dorsalgia M54.89 [facility] [address] 33714- 9293 Mar, [facility] [address] 23142- 3937 Mar, Encounter for immunization Z23 [facility] [address] 24579- 1181 Feb, Anorexia R63.0 [facility] [address] 81285- 1215 Feb, Diabetes E11.9 [facility] [address] 33554- 6624 Feb, Back pain M54.9 and Diabetes E11.9 [facility] [address] 58871- 3261 Feb, Diabetes E11.9 [facility] [address] 84968- 8072 Feb, Neuropathy G62.9 [facility] [id number] [place] [address] 97280- 9323 Feb, Encounter for immunization Z23 ; Epigastric pain R10.13 ; Weight loss, abnormal R63.4 and Neuropathy G62.9 [facility] [id number] [place] [address] [id number] Feb, [facility] [address] 83157- 2894 Feb, [facility] [id number] [place] [address] 05016- 6027 Feb, Intractable vomiting with nausea, unspecified vomiting type R11.2 [facility] [id number] [place] [address] 29140 -5964 Feb, Chronic nausea R11.0 [facility] [address] 10347- 8489 Feb, Other dorsalgia M54.89 [facility] [id number] [place] [address] 26723- 8313 Jan, [facility] [address] 66564- 4731 Jan, [facility] [address] 19764- 1081 Jan, [facility] [address] 72975- 6720 Jan, [facility] [address] 08930- 5493 Jan, Asthma exacerbation J45.901 ; Bronchitis J40 and Neuropathy G62.9 [facility] [id number] [place] [address] 65074- 4214 Jan, Anorexia R63.0 [facility] [address] 79053- 6892 Jan, Other dorsalgia M54.89 [facility] [id number] [place] [address] 24291- 4026 Dec, [facility] [id number] [place] [address] 49450- 9242 Dec, [facility] [id number] [place] [address] 14709- 7843 Dec, Anorexia R63.0 [facility] [id number] [place] [address] 74271- 4356 Dec, Primary insomnia F51.01 [facility] [id number] [place] [address] 09862- 0375 Dec, Other dorsalgia M54.89 [facility] [address] [address]- 8942 Dec, [facility] [id number] [place] [address] 78140- 6081 Nov, [facility] [id number] [place] [address] 50953- 7364 Nov, [facility] [id number] [place] [address] 13921- 9830 Nov, [facility] [id number] [place] [address] 84034- 8519 Nov, History of colon polyps Z86.010 [facility] [id number] [place] [address] 49377- 9747 Nov, Weight loss R63.4 ; Nausea and vomiting, intractability of vomiting not specified, unspecified vomiting type R11.2 and Abnormal LFTs R79.89 [facility] [id number] [place] [address] 97581- 6143 Nov, [facility] [id number] [place] [address] 90474- 2675 Nov, Neuropathy G62.9 and Pain in right knee M25.561 [facility] [id number] [place] [address] 76160- 5726 Nov, Back pain M54.9 [facility] [id number] [place] [address] 06204- 6462 Nov, [facility] [address] [place] [address] 94723- 3457 Nov, Bronchitis J40 [facility] [id number] [place] [address] 94449- 1178 Nov, Weight loss R63.4 [facility] [id number] [place] [address] 74213- 1884 Oct, Back pain M54.9 [facility] [address] [address]- 2130 16 Oct, 2016 [facility] [id number] [place] [address] 05507- 6570 14 Oct, 2016 Back pain M54.9 [facility] [id number] [place] [address] 31941- 9226 13 Oct, 2016 Type 2 diabetes mellitus without complications E11.9 and Bronchitis J40 [facility] [id number] [place] [address] 16793- 4830 Oct, [facility] [id number] [place] [address] 66888- 7942 Oct, [facility] [id number] [place] [address] 34172- 3612 September, Gastroparesis K31.84 ; Type 2 diabetes mellitus with diabetic autonomic (poly)neuropathy E11.43 and Neuropathy G62.9 [facility] [id number] [place] [address] 26180- 8450 September, Other dorsalgia M54.89 [facility] [id number] [place] [address] 77378- 7710 September, [facility] [id number] [place] [address] 53843- 4032 September, [facility] [id number] [place] [address] 36251- 7026 Aug, Gastroparesis K31.84 and Radicular leg pain M54.10 [facility] [id number] [place] [address] 59971- 6370 Aug, Anorexia R63.0 [facility] [id number] [place] [address] 24097- 5191 Aug, Bronchitis J40 [facility] [id number] [place] [address] 20121- 0512 Aug, Back pain M54.9 [facility] [address] [place] [address] 49495- 8432 Aug, Routine gynecological examination Z01.419 ; Routine screening for STI (sexually transmitted infection) Z11.3 and Yeast infection of the vagina B37.3 [facility] [address] [place] [address] 50234- 9535 Jul, Other dorsalgia M54.89 [place] [address] 70883- 3333 Jul, Diabetes E11.9 and Gastroparesis K31.84 [place] [address] 82185- 2145 Jun, [place] [id number] [place] [address] 35063- 7522 Jun, Back pain M54.9 [place] [address] 61000- 2393 14 Jun, 2016 Neuropathy G62.9 [facility] [address] [id number] 02 Jun, 2016 Encounter for dental examination Z01.20 [place] [id number] [place] [address] 73667- 4383 Jun, Gastroparesis 536.3 and Anorexia R63.0 [place] [id number] [place] [address] 24519- 6605 May, Other dorsalgia M54.89 [place] [id number] [place] [address] 85830- 4910 May, Periumbilical abdominal pain R10.33 ; Weight loss R63.4 and Gastroparesis K31.84 [place] [address] [place] [address] 06493- 6163 May, Back pain M54.9 [place] [id number] [place] [address] 88918- 5892 Apr, Anorexia R63.0 [facility] [address] [place] [address] 57208 2546 Apr, Anorexia R63.0 [facility] [id number] [place] [address] 29048 2546 16 Apr, 2016 Back pain M54.9 [facility] [id number] [place] [address] 24898 2546 15 Apr, 2016 Back pain M54.9 [facility] [id number] [place] [address] 70794 2546 Apr, [facility] [id number] [place] [address] 92653 2546 Apr, Bronchitis J40 and Neuropathy G62.9 [facility] [address] [place] [address] 22588 2546 Apr, Neuropathy G62.9 [facility] [id number] [place] [address] 06526 2546 05 Apr, 2016 [facility] [id number] [place] [address] 04632 2542 Apr, Back pain M54.9 [facility] [address] [place] [address] 79611 2546 Mar, Type 2 diabetes mellitus with diabetic autonomic (poly) neuropathy E11.43 [facility] [id number] [place] [address] 71935 2546 Mar, Type 2 diabetes mellitus without complications E11.9 [facility] [address] [place] [address] 77042- 4996 Mar, Neuropathy G62.9 [facility] [id number] [place] [address] 38800 2546 Mar, [facility] [address] [place] [address] 51286- 6876 Mar, Breast cancer screening Z12.39 [facility] [id number] [place] [address] 74698- 8773 Mar, Other dorsalgia M54.89 [facility] [address] 53664- 8045 Feb, [facility] [address] 06166- 9941 30 Jan, 2016 Neuropathy G62.9 ; Type 2 diabetes mellitus with diabetic autonomic (poly)neuropathy E11.43 ; Uncomplicated asthma, unspecified asthma severity J45.909 and Encounter for immunization Z23 [place] [address] 56050- 1396 Jan, [place] [address] 89713- 8630 Jan, [place] [address] 32159- 7979 Dec, [facility] [address] 28472- 8693 Dec, [place] [address] 21737- 5541 Nov, [place] [address] 27429- 4599 Nov, Back pain M54.9 [place] [address] 85856- 0226 Nov, Neuropathy G62.9 ; Mixed hyperlipidemia E78.2 ; Type 2 diabetes mellitus with diabetic autonomic (poly)neuropathy E11.43 and half-way 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 Z79.4 [place] [address] 55372- 1978 Oct, [place] [address] 41089- 1479 Oct, Other dorsalgia M54.89 [facility] [address] 36974- 1723 September, Primary insomnia F51.01 [facility] [id number] [place] [address] 33893- 5579 September, [facility] [id number] [place] [address] 53449- 2159 Aug, Other dorsalgia M54.89 [facility] [id number] [place] [address] 81585- 2577 Jul, [facility] [id number] [place] [address] 90598- 4573 Jul, Other dorsalgia M54.89 [facility] [address] [place] [address] 30457- 1170 Jul, Diabetes E11.9 ; Back pain M54.9 ; Neuropathy G62.9 and Gastroparesis K31.84 [facility] [id number] [place] [address] 32353- 7557 Jun, [facility] [id number] [place] [address] 10450- 3821 Jun, Other dorsalgia M54.89 [facility] [id number] [place] [address] 97955- 8151 May, [facility] [id number] [place] [address] 89036- 2822 May, Radicular leg pain M54.10 and Other dorsalgia M54.89 [facility] [id number] [place] [address] 60591- 9396 Apr, [facility] [id number] [place] [address] 60860- 1039 Mar, [facility] [id number] [place] [address] 50546- 0444 Mar, [facility] [id number] [place] [address] 47544- 9800 Mar, Radicular leg pain M54.10 [facility] [address] [address]- 5037 Feb, [facility] [id number] 8936 Feb, [facility] [address] [address]- 2136 Feb, [facility] [id number] [place] [address] 202841- 2427 Jan, [facility] [address] [place] [address] 57966- 7901 Jan, IBS (irritable bowel syndrome) 564.1 [facility] [id number] [place] [address] 35852- 4582 Jan, [facility] [id number] [place] [address] 02098- 2625 Jan, [facility] [address] [address]- 7009 Jan, Diabetes mellitus without mention of complication, type II or unspecified type, not stated as uncontrolled 250.00 ; Gastroparesis 536.3 and Hypoacusis 389.9 [facility] [address] [address]- 5090 Jan, [facility] [id number] [address]- 2138 Jan, [facility] [id number] [address]- 0276 Dec, [facility] [id number] [place] [address] 708836- 4214 Dec, [facility] [address] [address]- 9478 Dec, [facility] [id number] [place] [address] 536[address]95 Dec, Back pain 724.5 and Gastroparesis 536.3 [facility] [id number] [address] Nov, [facility] [id number] [id number] Nov, Dental examination V72.2 [facility] [id number] [address] Nov, [facility] [id number] [place] [address]- [address]35 Nov, [facility] [id number] [place] [address]- 6292 Nov, Depressive disorder, not elsewhere classified 311 and No condition on Clover II V71.09 [facility] [id number] [place] [id number]- 1741 Nov, Diabetes 250.00 and Symptomatic menopausal or female climacteric states 627.2 [facility] [id number] [address] Oct, [facility] [id number] [address] Oct, Lumbar strain 847.2 [facility] [id number] [address] Oct, Gastroparesis 536.3 and Unspecified myalgia and myositis 729.1 [facility] [id number] [address] Aug, [facility] [id number] [address] Aug, [facility] [id number] [address] Jul, [facility] [id number] [address] Jul, [facility] [place] [facility] [address] [id number] [place] [address] Jul, [facility] [place] [facility] [address] [id number] [place] [address] Jul, [facility] [place] [facility] [address] [id number] [place] [address] Jul, [facility] [place] [facility] [address] [id number] [place] [address] Jun, [facility] [place] [facility] [address] [id number] [place] [address] Jun, [facility] [place] [facility] [address] [id number] [place] [address] Jun, [facility] [place] [facility] [address] [id number] [place] [address] May, [facility] [place] [facility] [address] [id number] [place] [address] May, [facility] [place] [facility] [address] [id number] [place] [address] Mar, [facility] [place] [facility] [address] [id number] [place] [address] Mar, [facility] [place] [facility] [address] [id number] [place] [address] Mar, [facility] [place] [facility] [address] [id number] [place] [address] Mar, [facility] [place] [facility] [address] [id number] [place] [address] Mar, [facility] [place] [facility] [address] [id number] [place] [address] Mar, [facility] [place] [facility] [address] [id number] [place] [address] Feb, [facility] [place] [facility] [address] [id number] [place] [address] Feb, [facility] [address] [id number] [place] [address] Nov, [facility] [address] [id number] [place] [address] Nov, [facility] [address] [id number] [place] [address] Nov, [facility] [address] [id number] [place] [address] Oct, [facility] [address] [id number] [place] [address] September, [facility] [address] [id number] [place] [address] Aug, [facility] [address] [id number] [place] [address] Aug, [facility] [address] [id number] [place] [address] Aug, [facility] [address] [id number] [place] [address] Aug, [facility] [address] [id number] [place] [address] Aug, [facility] [address] [id number] [place] [address] Aug, [facility] [address] [id number] [place] [address] Aug, [facility] [address] [id number] [place] [address] Aug, [facility] [place] [facility] [address] [id number] [place] [address] Jul, [facility] [address] [id number] [place] [address] Jul, [facility] [address] [facility] [id number] [place] [address] 12 Jun, 2012 [facility] [address] [facility] [id number] [place] [address] Jun, 2012 [facility] [address] [facility] [id number] [place] [address] 09 Jun, 2012 [facility] [id number] [place] [address] 08 Jun, 2012 [facility] [address] [facility] [id number] [place] [address] Jun, [facility] [address] [facility] [id number] [place] [address] Jun, [facility] [address] [id number] [place] [address] Jun, [facility] [id number] [place] [address] May, [facility] [id number] [place] [address] May, [facility] [id number] [place] [address] May, [facility] [address] [id number] [place] [address] May, [facility] [address] [id number] [place] [address] Mar, [facility] [address] [id number] [place] [address] Mar, [facility] [id number] [place] [address] Jan, IMMUNIZATIONS No Known Immunizations SOCIAL HISTORY Never Assessed REASON FOR VISIT marinol PLAN OF CARE VITAL SIGNS MEDICATIONS Medication Instructions Dosage Frequency Start Date End Date Duration Status Marinol 5 mg Orally Twice a day 1 capsule before lunch and supper 12h May, 28 days Active RESULTS No Results [...]
--- OUTSIDE RECORDS SUMMARY | 2018-01-27 20:14 | XMS REPORT ---
Author Author HORACE HIGGINS [facility] Address [address] [place] [address] Care Team Providers Care Senior Consumer Insights Consultant Name Role Phone HORACE HIGGINS Unavailable PROBLEMS Type Condition ICD9-CM Code UCR99-VE Code Onset Dates Condition Status SNOMED Code Problem Weight loss R63.4 Active 733199476 Problem Primary insomnia F51.01 Active 2829036 Problem History of colon polyps Z86.010 Active 374149244 Problem Annual physical exam Z00.00 Active 788221463 Problem Migraine without aura and without status migrainosus, not intractable G43.009 Active 453341193 Problem Reactive depression F32.9 Active 28808679 Problem Asthma exacerbation J45.901 Active 795121977 Problem PTSD (post-traumatic stress disorder) F43.10 Active 49192523 Problem Diabetic polyneuropathy associated with type 2 diabetes mellitus E11.42 Active 50823269 Problem Neuropathy G62.9 Active 335020541 Problem Diabetes E11.9 Active 69545625 Problem Low TSH level R94.6 Active 762755368 Problem Back pain M54.9 Active 197014389 Problem Mixed hyperlipidemia E78.2 Active 754468728 Problem Type 2 diabetes mellitus with diabetic autonomic (poly)neuropathy E11.43 Active 60710825 Problem Gastroparesis K31.84 Active 650700873 Problem Uncomplicated asthma, unspecified asthma severity J45.909 Active 007726468 Problem 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 Active 247110082 Problem Anorexia R63.0 Active 33697702 ALLERGIES No Information ENCOUNTERS Encounter Location Date Diagnosis [facility] [address] [address] Oct, [facility] [id number] [address] Oct, [facility] [id number] [place] [address] 22823- 2752 Oct, Other dorsalgia M54.89 [place] [id number] [place] [address] 02617- 9465 Oct, Anorexia R63.0 [place] [address] 41279- 1341 September, PTSD (post-traumatic stress disorder) F43.10 [place] [address] 03115- 1219 September, Low TSH level R94.6 [place] [address] 40331- 7799 September, Other dorsalgia M54.89 [place] [address] 28082- 4971 September, Annual physical exam Z00.00 and Migraine without aura and without status migrainosus, not intractable G43.009 [place] [address] 72432- 7216 September, Abnormal TSH R94.6 and Dysfunction of left eustachian tube H69.82 [place] [address] 06150- 8908 Aug, [place] [address] 80699- 3458 Aug, Anorexia R63.0 [facility] [address] [id number] Aug, Dental examination Z01.20 and Xerostomia K11.7 [place] [address] 82161- 1707 Aug, Neuropathy G62.9 [facility] [address] 24992- 2732 Aug, [facility] [address] 26242- 4592 Aug, Other dorsalgia M54.89 [facility] [id number] [place] [address] 24760 2546 16 Aug, 2017 Type 2 diabetes mellitus with diabetic autonomic (poly) neuropathy E11.43 ; Diabetic polyneuropathy associated with type 2 diabetes mellitus E11.42 ; Bronchitis J40 ; Gastroparesis K31.84 and Reactive depression F32.9 [facility] [address] 32820 2546 Aug, PTSD (post-traumatic stress disorder) F43.10 [facility] [id number] [place] [address] 76196 2546 Aug, Other dorsalgia M54.89 and Anorexia R63.0 [facility] [address] 67478 2546 Jul, [facility] [address] 47075 2546 Jul, Other dorsalgia M54.89 [facility] [id number] [place] [address] 57180 2546 Jul, [facility] [address] 55066 2546 Jul, [facility] [id number] [place] [address] 01087 2546 Jul, PTSD (post-traumatic stress disorder) F43.10 [facility] [id number] [place] [address] 93015 2546 Jul, [facility] [id number] [place] [address] 59513 2546 Jul, [facility] [id number] [place] [address] 91565 2546 Jul, [facility] [id number] [place] [address] 31746 2546 Jul, Anorexia R63.0 [facility] [address] [place] [address] 55[address] Jun, [facility] [id number] [place] [address] 14433- 6793 Jun, Vaginal discharge N89.8 ; Visit for gynecologic examination Z01.419 and Pelvic pressure in female R10.2 [facility] [address] 30633- 9936 Jun, [facility] [address] 91817- 6683 Jun, Other dorsalgia M54.89 [facility] [address] 85746- 0916 Jun, [facility] [address] 99346- 1096 Jun, [facility] [address] 31949- 1379 Jun, [facility] [id number] [place] [address] 57215- 6366 May, Back pain M54.9 [facility] [address] 68740- 4386 May, Anorexia R63.0 [facility] [id number] [place] [address] 64734- 3106 May, Other dorsalgia M54.89 [facility] [id number] [place] [address] 07086- 4489 May, [facility] [id number] [place] [address] 29248- 6836 May, Bronchitis J40 [facility] [id number] [place] [address] 15712- 3395 May, Type 2 diabetes mellitus with diabetic autonomic (poly) neuropathy E11.43 ; 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 ; Back pain M54.9 and Neuropathy G62.9 [facility] [id number] [place] [address] 14414- 6970 May, Left breast mass N63.20 [facility] [id number] [place] [address] 35434- 7296 May, [facility] [id number] [place] [address] 39745- 0163 Apr, Other dorsalgia M54.89 [facility] [id number] [place] [address] 64944- 2757 Apr, Anorexia R63.0 [facility] [address] 09649- 9526 Apr, Anorexia R63.0 [facility] [id number] [place] [address] 33966- 9851 Apr, Mass of left breast N63.20 [facility] [id number] [place] [address] 82233- 0925 Apr, [facility] [id number] [place] [address] 18112- 8510 Apr, [facility] [id number] [place] [address] 90229- 4614 Apr, Diarrhea of presumed infectious origin A09 [facility] [id number] [place] [address] 56731- 1227 Apr, Encounter for immunization Z23 [facility] [id number] [place] [address] 57541- 4929 Apr, [facility] [id number] [place] [address] 74771- 7424 Mar, Other dorsalgia M54.89 [facility] [id number] [place] [address] 78451- 0215 Mar, [facility] [id number] [place] [address] 23097- 0469 Mar, [facility] [id number] [place] [address] 62821- 1897 Mar, Anorexia R63.0 [facility] [address] 31231- 7258 Mar, [facility] [id number] [place] [address] 12492- 1542 Mar, Other dorsalgia M54.89 [facility] [address] 73344- 5269 Mar, [facility] [address] 93565- 3963 Mar, Encounter for immunization Z23 [facility] [address] 61978- 0957 Feb, Anorexia R63.0 [facility] [address] 78912- 8433 Feb, Diabetes E11.9 [facility] [address] 72125- 1115 Feb, Back pain M54.9 and Diabetes E11.9 [facility] [id number] [place] [address] 85078- 3699 Feb, Diabetes E11.9 [facility] [id number] [place] [address] 16708- 8704 Feb, Neuropathy G62.9 [facility] [id number] [place] [address] 75706- 6300 Feb, Encounter for immunization Z23 ; Epigastric pain R10.13 ; Weight loss, abnormal R63.4 and Neuropathy G62.9 [facility] [place] [facility] [address] [id number] Feb, [facility] [id number] [place] [address] 29631- 0916 Feb, [facility] [address] [place] [address]- 3913 Feb, Intractable vomiting with nausea, unspecified vomiting type R11.2 [facility] [address] 38082 -5658 Feb, Chronic nausea R11.0 [facility] [address] 02118- 3470 Feb, Other dorsalgia M54.89 [facility] [address] 60089- 1244 Jan, [facility] [address] 27923- 4509 Jan, [facility] [address] 65965- 1418 Jan, [facility] [address] 03565- 0504 Jan, [facility] [address] 88612- 1003 Jan, Asthma exacerbation J45.901 ; Bronchitis J40 and Neuropathy G62.9 [facility] [address] 33340- 0616 Jan, Anorexia R63.0 [facility] [id number] [place] [address] 97502- 5908 Jan, Other dorsalgia M54.89 [facility] [id number] [place] [address] 54225- 7302 Dec, [facility] [id number] [place] [address] 76249- 3929 Dec, [facility] [address] 36679- 8894 Dec, Anorexia R63.0 [facility] [address] 07341- 8959 14 Dec, 2016 Primary insomnia F51.01 [facility] [id number] [place] [address] 29653- 5493 Dec, Other dorsalgia M54.89 [facility] [id number] [place] [address] 21733- 4849 Dec, [facility] [id number] [place] [address] 91165- 0004 Nov, [facility] [address] 47871- 8430 Nov, [facility] [id number] [place] [address] 72215- 7056 Nov, [facility] [id number] [place] [address] 29342- 8329 Nov, History of colon polyps Z86.010 [facility] [id number] [place] [address] 19364- 8576 Nov, Weight loss R63.4 ; Nausea and vomiting, intractability of vomiting not specified, unspecified vomiting type R11.2 and Abnormal LFTs R79.89 [facility] [id number] [place] [address] 97495- 4182 Nov, [facility] [id number] [place] [address] 79948- 8106 Nov, Neuropathy G62.9 and Pain in right knee M25.561 [facility] [id number] [place] [address] 31306- 4695 Nov, Back pain M54.9 [facility] [id number] [place] [address] 83816- 7141 Nov, [facility] [id number] [place] [address] 47134- 5788 Nov, Bronchitis J40 [facility] [id number] [place] [address] 25049- 0650 Nov, Weight loss R63.4 [place] [id number] [place] [address] 24356- 7351 16 Oct, 2016 Back pain M54.9 [facility] [id number] [place] [address] 77078- 7996 16 Oct, 2016 [facility] [id number] [place] [address] 89134- 5080 14 Oct, 2016 Back pain M54.9 [facility] [id number] [place] [address] 97666- 5202 13 Oct, 2016 Type 2 diabetes mellitus without complications E11.9 and Bronchitis J40 [facility] [id number] [place] [address] 69272- 4519 Oct, [facility] [id number] [place] [address] 53442- 4270 Oct, [facility] [id number] [place] [address] 38861- 2341 September, Gastroparesis K31.84 ; Type 2 diabetes mellitus with diabetic autonomic (poly)neuropathy E11.43 and Neuropathy G62.9 [facility] [id number] [place] [address] 60123- 5841 September, Other dorsalgia M54.89 [facility] [id number] [place] [address] 17108- 6022 September, [facility] [id number] [place] [address] 96935- 9691 September, [facility] [id number] [place] [address] 67008- 6816 Aug, Gastroparesis K31.84 and Radicular leg pain M54.10 [facility] [id number] [place] [address] 13392- 8357 Aug, Anorexia R63.0 [facility] [id number] [place] [address] 85796- 0001 20 Apr, 2017 Bronchitis J40 [facility] [id number] [place] [address] 86846- 7865 Aug, Back pain M54.9 [place] [address] 42283- 7156 Aug, Routine gynecological examination Z01.419 ; Routine screening for STI (sexually transmitted infection) Z11.3 and Yeast infection of the vagina B37.3 [place] [address] 76765- 0617 Jul, Other dorsalgia M54.89 [place] [id number] [place] [address] 33463- 6817 Jul, Diabetes E11.9 and Gastroparesis K31.84 [place] [address] 17697- 7119 Jun, [facility] [address] [place] [address] 74594- 8849 Jun, Back pain M54.9 [facility] [id number] [place] [address] 35917- 7480 14 Jun, 2016 Neuropathy G62.9 [facility] [address] [id number] Jun, 2016 Encounter for dental examination Z01.20 [place] [id number] [place] [address] 42031- 4370 Jun, Gastroparesis 536.3 and Anorexia R63.0 [place] [id number] [place] [address] 91064- 1226 May, Other dorsalgia M54.89 [place] [id number] [place] [address] 63744- 3286 May, Periumbilical abdominal pain R10.33 ; Weight loss R63.4 and Gastroparesis K31.84 [facility] [id number] [place] [address] 54207- 9622 May, Back pain M54.9 [facility] [id number] [place] [address] 96426 2546 Apr, Anorexia R63.0 [facility] [id number] [place] [address] 73223 2546 Apr, Anorexia R63.0 [facility] [id number] [place] [address] 46128 2546 Apr, Back pain M54.9 [facility] [id number] [place] [address] 66260- 2546 15 Apr, 2016 Back pain M54.9 [facility] [id number] [place] [address] 63593 2546 Apr, [facility] [id number] [place] [address] 14924 2546 Apr, Bronchitis J40 and Neuropathy G62.9 [facility] [id number] [place] [address] 41847 2546 Apr, Neuropathy G62.9 [facility] [id number] [place] [address] 79677 2546 Apr, [facility] [id number] [place] [address] 55676 2546 Apr, Back pain M54.9 [facility] [id number] [place] [address] 70966 2546 Mar, Type 2 diabetes mellitus with diabetic autonomic (poly) neuropathy E11.43 [facility] [id number] [place] [address] 09221 2546 Mar, Type 2 diabetes mellitus without complications E11.9 [facility] [id number] [place] [address] 08888 2546 Mar, Neuropathy G62.9 [facility] [id number] [place] [address] 44286 2546 Mar, [facility] [id number] [place] [address] 68793- 6506 Mar, Breast cancer screening Z12.39 [facility] [id number] [place] [address] 67357- 5839 Mar, Other dorsalgia M54.89 [facility] [id number] [place] [address] 59361- 9246 Feb, [facility] [id number] [place] [address] 59539- 9555 30 Jan, 2016 Neuropathy G62.9 ; Type 2 diabetes mellitus with diabetic autonomic (poly)neuropathy E11.43 ; Uncomplicated asthma, unspecified asthma severity J45.909 and Encounter for immunization Z23 [facility] [id number] [place] [address] 97263- 5448 Jan, [place] [address] 70034- 5752 Jan, [facility] [id number] [place] [address] 36934- 1854 Dec, [facility] [id number] [place] [address] 11732- 6016 Dec, [facility] [id number] [place] [address] 82107- 7901 Nov, [place] [id number] [place] [address] 44628- 4525 Nov, Back pain M54.9 [facility] [id number] [place] [address] 64962- 7210 Nov, Neuropathy G62.9 ; Mixed hyperlipidemia E78.2 ; Type 2 diabetes mellitus with diabetic autonomic (poly)neuropathy E11.43 and alf 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 Z79.4 [facility] [id number] [place] [address] 45695- 4987 Oct, [facility] [address] 39994- 5387 Oct, Other dorsalgia M54.89 [facility] [id number] [place] [address] 32135- 7752 September, Primary insomnia F51.01 [facility] [id number] [place] [address] 99202- 3708 September, [facility] [id number] [place] [address] 90735- 3954 Aug, Other dorsalgia M54.89 [facility] [id number] [place] [address] 73028- 7006 Jul, [facility] [id number] [place] [address] 46363- 7106 Jul, Other dorsalgia M54.89 [facility] [id number] [place] [address] 49613- 7786 Jul, Diabetes E11.9 ; Back pain M54.9 ; Neuropathy G62.9 and Gastroparesis K31.84 [facility] [id number] [place] [address] 22403- 3624 Jun, [facility] [id number] [place] [address] 72163- 2034 Jun, Other dorsalgia M54.89 [facility] [id number] [place] [address] 77737- 7636 May, [facility] [id number] [place] [address] 15814- 3410 May, Radicular leg pain M54.10 and Other dorsalgia M54.89 [facility] [id number] [place] [address] 81363- 1411 Apr, [facility] [id number] [place] [address] 40733- 2446 Mar, [facility] [id number] [place] [address] 37141- 0948 Mar, [facility] [address] [place] [address]- 6054 Mar, Radicular leg pain M54.10 [facility] [id number] [place] [address] 541293- 0292 Feb, [facility] [id number] [place] [address] 786228- 6691 Feb, [facility] [id number] [place] [address] 572065- 8217 Feb, [facility] [id number] [place] [address] 497495- 0068 Jan, [facility] [id number] [place] [address] 60310- 2104 Jan, IBS (irritable bowel syndrome) 564.1 [facility] [id number] [place] [address] 29274- 1158 Jan, [facility] [id number] [place] [address] 35816- 5064 Jan, [facility] [id number] [place] [address] 10451- 6753 Jan, Diabetes mellitus without mention of complication, type II or unspecified type, not stated as uncontrolled 250.00 ; Gastroparesis 536.3 and Hypoacusis 389.9 [facility] [id number] [place] [address] 06746- 5192 Jan, [facility] [id number] [place] [address] 23519- 4473 Jan, [facility] [id number] [place] [address] 844902- 2056 Dec, [facility] [id number] [place] [address] 978108- 1909 Dec, [facility] [id number] [place] [address] 67622- 9874 Dec, [facility] [address] [place] [address]- 0647 Dec, Back pain 724.5 and Gastroparesis 536.3 [facility] [address]- 4303 Nov, [facility] [address] [id number] Nov, Dental examination V72.2 [facility] [id number] [place] [address] 38603- 8648 Nov, [facility] [id number] [place] [address] 44144- 8845 Nov, [facility] [id number] [place] [address] 16637- 6796 Nov, Depressive disorder, not elsewhere classified 311 and No condition on Carlock II V71.09 [facility] [address] [address]- 8828 Nov, Diabetes 250.00 and Symptomatic menopausal or female climacteric states 627.2 [facility] [address] [address]- 7901 Oct, [facility] [address] [address]- 8974 Oct, Lumbar strain 847.2 [facility] [address] [place] [address]- 6904 Oct, Gastroparesis 536.3 and Unspecified myalgia and myositis 729.1 [facility] [id number] [place] [address] 67250- 1823 Aug, [facility] [address] [place] [address]- 3077 Aug, [facility] [id number] [place] [address] 9[address] Jul, [facility] [place] [facility] [address] [id number] [place] [address] Jul, [facility] [place] [facility] [address] [id number] [place] [address] Jul, [facility] [place] [facility] [address] [id number] [place] [address] Jul, [facility] [place] [facility] [address] [id number] [place] [address] Jul, [facility] [place] [facility] [address] [id number] [place] [address] Jun, [facility] [place] [facility] [address] [id number] [place] [address] Jun, [facility] [place] [facility] [address] [id number] [place] [address] Jun, [facility] [place] [facility] [address] [id number] [place] [address] May, [facility] [place] [facility] [address] [id number] [place] [address] May, [facility] [place] [facility] [address] [id number] [place] [address] Mar, [facility] [place] [facility] [address] [id number] [place] [address] Mar, [facility] [place] [facility] [address] [id number] [place] [address]- [address] Mar, [facility] [place] [facility] [address] [id number] [place] [address] Mar, [facility] [place] [facility] [address] [id number] [place] [address] Mar, [facility] [place] [facility] [address] [id number] [place] [address] Mar, [facility] [place] [facility] [address] [id number] [place] [address] Feb, [facility] [address] [id number] [place] [address] Feb, [facility] [address] [id number] [place] [address] Nov, [facility] [address] [id number] [place] [address] Nov, [facility] [address] [id number] [place] [address] Nov, [facility] [facility] [address] [id number] [place] [address] Oct, [facility] [address] [id number] [place] [address] September, [facility] [address] [id number] [place] [address] Aug, [facility] [address] [id number] [place] [address] Aug, [facility] [address] [id number] [place] [address] Aug, [facility] [address] [id number] [place] [address] Aug, [facility] [address] [id number] [place] [address] Aug, [facility] [address] [id number] [place] [address] Aug, [facility] [address] [id number] [place] [address] Aug, [facility] [address] [id number] [place] [id number] Aug, [facility] [address] [id number] [place] [address] Jul, [facility] [address] [facility] [id number], [place] [address] Jul, [facility] [address] [facility] [id number] [place] [address] Jun, [facility] [address] [facility] [id number], [place] [address] Jun, [facility] [address] [facility] [id number] [place] [address] Jun, [facility] [address] [facility] [id number] [place] [address] 08 Jun, 2012 [facility] [address] [facility] [id number], [place] [address] Jun, [facility] [id number], [place] [address] Jun, [facility] [address] [id number], [place] [address] Jun, [facility] [id number], [place] [address] May, [facility] [address] [id number], [place] [address] May, [facility] [address] [id number], [place] [address] May, [facility] [address] [facility] [id number], [place] [address] May, [facility] [address] [facility] [id number], [place] [address] Mar, [facility] [address] [id number], [place] [address] Mar, [facility] [address] [id number], [place] [address] 24 Jan, 2012 IMMUNIZATIONS No Known Immunizations SOCIAL HISTORY Never Assessed REASON FOR VISIT Refill request PLAN OF CARE VITAL SIGNS MEDICATIONS Medication Instructions Dosage Frequency Start Date End Date Duration Status Promethazine HCl 25 MG Orally every 6 hrs 1 tablet as needed 6h 5 Active RESULTS No Results PROCEDURES No [...] vomitting-[facility] 03/05/17 Hospitalization History hospital stay at [facility] for stomach issues 2016
--- OUTSIDE RECORDS SUMMARY | 2018-01-27 20:14 | XMS REPORT ---
Author Author HORACE HIGGINS [facility] Address [address] [place] [address] Care Team Providers Care Slab Inspector Name Role Phone HORACE HIGGINS Unavailable PROBLEMS Type Condition ICD9-CM Code BYQ20-RC Code Onset Dates Condition Status SNOMED Code Problem History of colon polyps Z86.010 Active 752924129 Problem Asthma exacerbation J45.901 Active 563735283 Problem Primary insomnia F51.01 Active 5204912 Problem Tobacco dependency F17.200 Active 55416859 Problem Low TSH level R94.6 Active 837783765 Problem Annual physical exam Z00.00 Active 173377695 Problem Diabetic polyneuropathy associated with type 2 diabetes mellitus E11.42 Active 62470733 Problem Reactive depression F32.9 Active 41909742 Problem Migraine without aura and without status migrainosus, not intractable G43.009 Active 419982874 Problem PTSD (post-traumatic stress disorder) F43.10 Active 55771952 Problem Diabetes E11.9 Active 75984910 Problem Gastroparesis K31.84 Active 039905568 Problem Back pain M54.9 Active 884405553 Problem Neuropathy G62.9 Active 529516900 Problem Type 2 diabetes mellitus with diabetic autonomic (poly)neuropathy E11.43 Active 02110677 Problem Uncomplicated asthma, unspecified asthma severity J45.909 Active 283584409 Problem halfway 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 Z79.4 Active 851529397 Problem Anorexia R63.0 Active 72961774 Problem Mixed hyperlipidemia E78.2 Active 173549339 Problem Weight loss R63.4 Active 525190720 ALLERGIES No Information ENCOUNTERS Encounter Location Date Diagnosis [facility] [id number], [place] [address] Jan, [facility] [id number], [place] [address] Dec, [facility] [address] [id number]- 6180 Nov, Asthma exacerbation J45.901 [place] [address] [address]104- 3907 Oct, PTSD (post-traumatic stress disorder) F43.10 [place] [address] 86205- 9056 Oct, [place] [address] 06857- 9914 Oct, PTSD (post-traumatic stress disorder) F43.10 and Tobacco dependency F17.200 [place] [address] 24699- 1017 Oct, [place] [address] [address] 2228 Oct, Other dorsalgia M54.89 [place] [address] 13936- 4233 Oct, Anorexia R63.0 [place] [address] 439151- 4705 September, PTSD (post-traumatic stress disorder) F43.10 [place] [address] 58038- 9048 September, Low TSH level R94.6 [place] [address] 77948- 7836 September, Other dorsalgia M54.89 [place] [address] 20046- 3908 September, Annual physical exam Z00.00 and Migraine without aura and without status migrainosus, not intractable G43.009 [place] [id number] [place] [address] 44951- 2782 September, Abnormal TSH R94.6 and Dysfunction of left eustachian tube H69.82 [place] [address], [place] [address] Aug, [facility] [id number] [place] [address] 80143- 9206 Aug, Anorexia R63.0 [facility] [address] [id number] Aug, Dental examination Z01.20 and Xerostomia K11.7 [facility] [id number] [place] [address] 40007- 5804 Aug, Neuropathy G62.9 [facility] [id number] [place] [address] 80195 0469 Aug, [facility] [id number] [place] [address] 77756- 9254 Aug, Other dorsalgia M54.89 [facility] [id number] [place] [address] 83862- 3616 Aug, Type 2 diabetes mellitus with diabetic autonomic (poly) neuropathy E11.43 ; Diabetic polyneuropathy associated with type 2 diabetes mellitus E11.42 ; Bronchitis J40 ; Gastroparesis K31.84 and Reactive depression F32.9 [facility] [id number] [place] [address] 04922- 7630 Aug, PTSD (post-traumatic stress disorder) F43.10 [facility] [id number] [place] [address] 78633- 0547 Aug, Other dorsalgia M54.89 and Anorexia R63.0 [facility] [id number] [place] [address] 89728- 6965 Jul, [facility] [id number] [place] [address] 47939- 1777 Jul, Other dorsalgia M54.89 [facility] [id number] [place] [address] 34652- 3039 Jul, [facility] [address] [place] [address]- 8968 Jul, [facility] [id number] [place] [address] 66769- 1537 Jul, PTSD (post-traumatic stress disorder) F43.10 [facility] [id number] [place] [address] 73194- 1513 Jul, [facility] [address] 52934- 1745 Jul, [facility] [address] 54003- 8628 Jul, [facility] [address] 19932- 5717 Jul, Anorexia R63.0 [facility] [address] 37302- 0586 Jun, [facility] [address] 48635- 4734 Jun, Vaginal discharge N89.8 ; Visit for gynecologic examination Z01.419 and Pelvic pressure in female R10.2 [facility] [id number] [place] [address] 17870- 7810 Jun, [facility] [id number] [place] [address] 47387- 3206 Jun, Other dorsalgia M54.89 [facility] [id number] [place] [address] 06272- 1267 Jun, [facility] [id number] [place] [address] 06884- 4716 Jun, [facility] [id number] [place] [address] 20419- 9597 Jun, [facility] [id number] [place] [address] 92205- 4294 May, Back pain M54.9 [facility] [id number] [place] [address] 67922- 5407 May, Anorexia R63.0 [facility] [address] 86531- 1726 May, Other dorsalgia M54.89 [facility] [address] 77064- 3036 May, [facility] [address] 32600- 2682 May, Bronchitis J40 [facility] [address] 66531- 3591 May, Type 2 diabetes mellitus with diabetic autonomic (poly) neuropathy E11.43 ; halfway 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 Z79.4 ; Back pain M54.9 and Neuropathy G62.9 [facility] [address] 20450- 3242 May, Left breast mass N63.20 [facility] [id number] [place] [address] 98748- 5741 May, [facility] [address] 39712- 9177 Apr, Other dorsalgia M54.89 [facility] [id number] [place] [address] 32343 2546 Apr, Anorexia R63.0 [facility] [id number] [place] [address] 42327- 1306 Apr, Anorexia R63.0 [facility] [id number] [place] [address] 01413- 3254 Apr, Mass of left breast N63.20 [facility] [id number] [place] [address] 57556- 9754 Apr, [facility] [id number] [place] [address] 95539- 6583 Apr, [place] [id number] [place] [address] 55603- 4086 Apr, Diarrhea of presumed infectious origin A09 [facility] [id number] [place] [address] 55780- 4355 Apr, Encounter for immunization Z23 [facility] [id number] [place] [address] 84669- 1987 Apr, [facility] [id number] [place] [address] 85411- 8164 Mar, Other dorsalgia M54.89 [facility] [id number] [place] [address] 57136- 9061 Mar, [facility] [id number] [place] [address] 33785- 2755 Mar, [facility] [id number] [place] [address] 01632- 1525 Mar, Anorexia R63.0 [facility] [id number] [place] [address] 41782- 1329 Mar, [facility] [id number] [place] [address] 72017- 3513 Mar, Other dorsalgia M54.89 [facility] [id number] [place] [address] 34712- 3185 Mar, [facility] [id number] [place] [address] 47178- 7903 Mar, Encounter for immunization Z23 [facility] [id number] [place] [address] 74769- 4502 Feb, Anorexia R63.0 [facility] [id number] [place] [address] 02410- 9412 Feb, Diabetes E11.9 [facility] [id number] [place] [address] 11780- 6385 Feb, Back pain M54.9 and Diabetes E11.9 [facility] [id number] [place] [address] 72658- 7774 Feb, Diabetes E11.9 [facility] [address] 09158- 4316 Feb, Neuropathy G62.9 [facility] [address] 66912- 3629 Feb, Encounter for immunization Z23 ; Epigastric pain R10.13 ; Weight loss, abnormal R63.4 and Neuropathy G62.9 [facility] [address] [id number] Feb, [facility] [address] 89907- 1687 Feb, [facility] [address] 41296- 6429 Feb, Intractable vomiting with nausea, unspecified vomiting type R11.2 [facility] [address] 76345 -3960 Feb, Chronic nausea R11.0 [facility] [address] 09525- 1059 Feb, Other dorsalgia M54.89 [facility] [address] 39396- 0089 Jan, [facility] [address] 18039- 2824 Jan, [facility] [address] 50573- 4182 Jan, [facility] [address] 07392- 6147 Jan, [facility] [address] 89426- 9293 Jan, Asthma exacerbation J45.901 ; Bronchitis J40 and Neuropathy G62.9 [facility] [id number] [place] [address] 40048 2546 06 Jan, 2017 Anorexia R63.0 [facility] [id number] [place] [address] 02075 2546 Jan, Other dorsalgia M54.89 [facility] [id number] [place] [address] 45113- 9566 Dec, [facility] [id number] [place] [address] 93227- 4226 Dec, [facility] [id number] [place] [address] 81672- 9607 Dec, Anorexia R63.0 [facility] [id number] [place] [address] 42758- 3816 Dec, Primary insomnia F51.01 [facility] [id number] [place] [address] 87132- 7473 Dec, Other dorsalgia M54.89 [facility] [id number] [place] [address] 76672- 9100 Dec, [facility] [id number] [place] [address] 86329- 7337 Nov, [facility] [id number] [place] [address] 35787- 4219 Nov, [facility] [id number] [place] [address] 81460- 7798 Nov, [facility] [id number] [place] [address] 19273- 8309 Nov, History of colon polyps Z86.010 [facility] [id number] [place] [address] 48987- 5881 Nov, Weight loss R63.4 ; Nausea and vomiting, intractability of vomiting not specified, unspecified vomiting type R11.2 and Abnormal LFTs R79.89 [facility] [id number] [place] [address] 01298- 0951 18 Nov, 2016 [facility] [id number] [place] [address] 76723- 4575 Nov, Neuropathy G62.9 and Pain in right knee M25.561 [facility] [id number] [place] [address] 56954- 5745 12 Nov, 2016 Back pain M54.9 [facility] [id number] [place] [address] 40287- 4704 10 Nov, 2016 [facility] [id number] [place] [address] 89620- 3273 08 Nov, 2016 Bronchitis J40 [facility] [id number] [place] [address] 22883- 1370 Nov, Weight loss R63.4 [facility] [id number] [place] [address] 01284- 2141 16 Oct, 2016 Back pain M54.9 [facility] [id number] [place] [address] 08601- 1659 16 Oct, 2016 [facility] [id number] [place] [address] 37818- 0232 14 Oct, 2016 Back pain M54.9 [facility] [id number] [place] [address] 51200- 9661 Oct, Type 2 diabetes mellitus without complications E11.9 and Bronchitis J40 [facility] [id number] [place] [address] 77772- 0588 05 Oct, 2016 [facility] [id number] [place] [address] 70960- 0355 Oct, [facility] [id number] [place] [address] 46032- 3863 September, Gastroparesis K31.84 ; Type 2 diabetes mellitus with diabetic autonomic (poly)neuropathy E11.43 and Neuropathy G62.9 [facility] [id number] [place] [address] 68384- 1802 September, Other dorsalgia M54.89 [facility] [id number] [place] [address] 29805- 7322 September, [facility] [id number] [place] [address] 77234- 0368 September, [facility] [id number] [place] [address] 12221- 4462 Aug, Gastroparesis K31.84 and Radicular leg pain M54.10 [facility] [id number] [place] [address] 51210- 8263 Aug, Anorexia R63.0 [facility] [id number] [place] [address] 71233- 9415 Aug, Bronchitis J40 [facility] [id number] [place] [address] 08103- 8879 Aug, Back pain M54.9 [facility] [id number] [place] [address] 39342- 8557 Aug, Routine gynecological examination Z01.419 ; Routine screening for STI (sexually transmitted infection) Z11.3 and Yeast infection of the vagina B37.3 [facility] [id number] [place] [address] 04935- 5646 Jul, Other dorsalgia M54.89 [facility] [id number] [place] [address] 30628- 7051 Jul, Diabetes E11.9 and Gastroparesis K31.84 [facility] [id number] [place] [address] 96858- 8060 Jun, [facility] [id number] [place] [address] 91581- 0316 Jun, Back pain M54.9 [facility] [id number] [place] [address] 53868- 4102 Jun, Neuropathy G62.9 [facility] [address] [place] [address] [id number] 02 Jun, 2016 Encounter for dental examination Z01.20 [facility] [id number] [place] [address] 28720- 6076 Jun, Gastroparesis 536.3 and Anorexia R63.0 [facility] [address] 24471- 9186 May, Other dorsalgia M54.89 [facility] [address] 25623- 7492 May, Periumbilical abdominal pain R10.33 ; Weight loss R63.4 and Gastroparesis K31.84 [facility] [address] 47234- 9081 May, Back pain M54.9 [facility] [address] 49804- 4559 Apr, Anorexia R63.0 [facility] [address] 78952 2543 Apr, Anorexia R63.0 [facility] [address] 95822- 254 Apr, Back pain M54.9 [facility] [address] 07099 2545 Apr, Back pain M54.9 [facility] [id number] [place] [address] 14025 2543 Apr, [facility] [address] 80885 2542 Apr, Bronchitis J40 and Neuropathy G62.9 [facility] [address] 03565- 2541 Apr, Neuropathy G62.9 [facility] [address] 99541- 7048 Apr, [facility] [id number] [place] [address] 19503- 5733 Apr, Back pain M54.9 [facility] [id number] [place] [address] 03148- 8976 Mar, Type 2 diabetes mellitus with diabetic autonomic (poly) neuropathy E11.43 [facility] [id number] [place] [address] 14668- 6466 Mar, Type 2 diabetes mellitus without complications E11.9 [facility] [id number] [place] [address] 28160- 3035 Mar, Neuropathy G62.9 [facility] [id number] [place] [address] 64582- 0346 Mar, [facility] [id number] [place] [address] 57046- 8635 Mar, Breast cancer screening Z12.39 [facility] [id number] [place] [address] 46284- 0626 Mar, Other dorsalgia M54.89 [facility] [id number] [place] [address] 21090- 3848 Feb, [facility] [id number] [place] [address] 78461- 7465 Jan, Neuropathy G62.9 ; Type 2 diabetes mellitus with diabetic autonomic (poly)neuropathy E11.43 ; Uncomplicated asthma, unspecified asthma severity J45.909 and Encounter for immunization Z23 [facility] [id number] [place] [address] 23724- 7376 Jan, [facility] [id number] [place] [address] 35813- 6896 Jan, [facility] [id number] [place] [address] 57641- 8097 Dec, [facility] [address] [place] [address]- 8236 Dec, [facility] [id number] [place] [address] 69654- 4396 Nov, [facility] [address] 77644- 3434 Nov, Back pain M54.9 [facility] [address] 88169- 1009 Nov, Neuropathy G62.9 ; Mixed hyperlipidemia E78.2 ; Type 2 diabetes mellitus with diabetic autonomic (poly)neuropathy E11.43 and halfway 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 Z79.4 [facility] [address] 62246- 7975 Oct, [facility] [address] 86290- 9122 Oct, Other dorsalgia M54.89 [facility] [address] 19939- 7982 September, Primary insomnia F51.01 [facility] [id number] [place] [address] 80986- 9754 September, [facility] [id number] [place] [address] 66456- 4845 Aug, Other dorsalgia M54.89 [facility] [id number] [place] [address] 12563- 7478 Jul, [facility] [id number] [place] [address] 00863- 5014 Jul, Other dorsalgia M54.89 [facility] [address] 53969- 8575 Jul, Diabetes E11.9 ; Back pain M54.9 ; Neuropathy G62.9 and Gastroparesis K31.84 [facility] [id number] [place] [address] 37411- 4667 Jun, [facility] [address] [facility] [id number] [address] 2543 Jun, Other dorsalgia M54.89 [facility] [address] [facility] [id number] [place] [address] 30049 2546 May, [facility] [id number] [place] [address] 65463 2546 May, Radicular leg pain M54.10 and Other dorsalgia M54.89 [facility] [address] [facility] [id number] [place] [address] 2546 Apr, [facility] [id number] [place] [address] 19280 2546 Mar, [facility] [id number] [place] [address] 69798 2546 Mar, [facility] [id number] [place] [address] 31347 254 Mar, Radicular leg pain M54.10 [facility] [address] [id number] [address]- 3399 Feb, [facility] [id number] [place] [address] 06483- 3448 Feb, [facility] [address] [address]- 2046 Feb, [facility] [id number] [place] [address] 79017 2544 Jan, [facility] [id number] [address] 2548 Jan, IBS (irritable bowel syndrome) 564.1 [facility] [id number] [address] 2546 Jan, [facility] [address], [place] [address]- 2546 Jan, [facility] [address] [address]- 8590 Jan, Diabetes mellitus without mention of complication, type II or unspecified type, not stated as uncontrolled 250.00 ; Gastroparesis 536.3 and Hypoacusis 389.9 [facility] [id number] [place] [address] 11849- 9907 Jan, [facility] [id number] [place] [address] 08561- 9901 Jan, [facility] [id number] [place] [address] 78711- 1631 Dec, [facility] [id number] [place] [address] [phone]- 3016 Dec, [facility] [id number] [place] [address] 77472- 0471 Dec, [facility] [id number] [place] [address] 57819- 0581 Dec, Back pain 724.5 and Gastroparesis 536.3 [facility] [id number] [place] [address] [id number]- 6911 Nov, [facility] [id number] [place] [address] [id number] Nov, Dental examination V72.2 [facility] [id number] [place] [address] 61675- [phone] Nov, [facility] [id number] [place] [address] [id number]- [phone] Nov, [facility] [id number] [place] [address] [id number]- [phone] Nov, Depressive disorder, not elsewhere classified 311 and No condition on [place] V71.09 [facility] [address] [address] Nov, Diabetes 250.00 and Symptomatic menopausal or female climacteric states 627.2 [facility] [address] [facility] [id number] [address] Oct, [facility] [address] [facility] [id number] [place] [address] Oct, Lumbar strain 847.2 [facility] [address] [id number] [address] 2540 Oct, Gastroparesis 536.3 and Unspecified myalgia and myositis 729.1 [facility] [address] [facility] [id number] [place] [address] Aug, [facility] [address] [facility] [id number] [place] [address] Aug, [facility] [address] [facility] [id number], [place] [address] Jul, [facility] [address] [address] Jul, [facility] [facility] [address] [facility] [id number], [place] [address] Jul, [facility] [id number] [place] [address] Jul, [facility] [address] [id number] [address] Jul, [facility] [id number], [place] [address] 18 Jun, 2014 [facility] [address] [facility] [id number], [place] [address] Jun, [facility] [address] [facility] [id number] [place] [address] Jun, [facility] [address] [facility] [id number], [place] [address] May, [facility] [address] [id number], [place] [address] May, [facility] [place] [facility] [address] [id number] [place] [address] Mar, [facility] [place] [facility] [address] [id number] [place] [address] Mar, [facility] [place] [facility] [address] [id number] [place] [address] Mar, [facility] [place] [facility] [address] [id number] [place] [address] Mar, [facility] [place] [facility] [address] [id number] [place] [address] Mar, [facility] [place] [facility] [address] [id number] [place] [address] Mar, [facility] [place] [facility] [address] [id number] [place] [address] Feb, [facility] [place] [facility] [address] [id number] [place] [address] Feb, [facility] [place] [facility] [address] [id number] [place] [address] Nov, [facility] [place] [facility] [address] [id number] [place] [address] Nov, [facility] [place] [facility] [address] [id number], [place] [address] Nov, [facility] [place] [facility] [address] [id number], [place] [address] Oct, [facility] [place] [facility] [address] [id number] [place] [address] September, [facility] [place] [facility] [address] [id number], [place] [address] Aug, [facility] [place] [facility] [address] [id number] [place] [address] Aug, [facility] [place] [facility] [address] [id number] [place] [address] Aug, [facility] [address] [id number] [place] [address] Aug, [facility] [place] [facility] [address] [id number] [place] [address] 10 Aug, 2012 [facility] [address] [id number] [place] [address] Aug, [facility] [place] [facility] [address] [id number] [place] [address] Aug, [facility] [address] [id number] [place] [address] Aug, [facility] [address] [facility] [id number] [place] [address] Jul, [facility] [address] [facility] [id number] [place] [address] Jul, [facility] [address] [id number] [place] [address] Jun, [facility] [address] [id number] [place] [address] Jun, [facility] [address] [facility] [id number] [place] [address] Jun, [facility] [place] [facility] [address] [facility] [id number] [place] [address] Jun, [facility] [place] [facility] [address] [id number] [place] [address] Jun, [facility] [place] [facility] [address] [id number] [place] [address] Jun, [facility] [place] [facility] [address] [facility] [id number] [place] [address] 04 Jun, 2012 [facility] [place] [facility] [address] [facility] [id number] [place] [address] May, [facility] [address] [facility] [id number], [place] [address] May, [facility] [address] [facility] [id number], [place] [address] May, [facility] [address] [facility] [id number], [place] [address] May, [facility] [address] [facility] [id number], [place] [address] Mar, [facility] [address] [facility] [id number], [place] [address] Mar, [facility] [address] [facility] [id number], [place] [address] Jan, IMMUNIZATIONS No Known Immunizations SOCIAL HISTORY Never Assessed REASON FOR VISIT Oxycodone 07/18 PLAN OF CARE VITAL SIGNS MEDICATIONS Medication Instructions Dosage Frequency Start Date End Date Duration Status Oxycodone-Acetaminophen 10-325 MG Orally 4 times a day 1 tablet as needed 6h Jun, 28 days Active RESULTS No Results [...] vomitting-[facility] 03/05/17 Hospitalization History hospital stay at [facility] for stomach issues 2016
--- OUTSIDE RECORDS SUMMARY | 2018-01-27 20:15 | XMS REPORT ---
Author Author HORACE HIGGINS [facility] Address [address] [place] [address] Care Team Providers Care Pit Supervisor Name Role Phone HORACE HIGGINS Unavailable PROBLEMS Type Condition ICD9-CM Code OMR63-QB Code Onset Dates Condition Status SNOMED Code Problem History of colon polyps Z86.010 Active 365722077 Problem Asthma exacerbation J45.901 Active 466597597 Problem Primary insomnia F51.01 Active 0957076 Problem Tobacco dependency F17.200 Active 94200219 Problem Low TSH level R94.6 Active 817024111 Problem Annual physical exam Z00.00 Active 202113306 Problem Diabetic polyneuropathy associated with type 2 diabetes mellitus E11.42 Active 97411554 Problem Reactive depression F32.9 Active 86301973 Problem Migraine without aura and without status migrainosus, not intractable G43.009 Active 298762569 Problem PTSD (post-traumatic stress disorder) F43.10 Active 08236398 Problem Diabetes E11.9 Active 84025502 Problem Gastroparesis K31.84 Active 847845471 Problem Back pain M54.9 Active 649578151 Problem Neuropathy G62.9 Active 286531398 Problem Type 2 diabetes mellitus with diabetic autonomic (poly)neuropathy E11.43 Active 33777472 Problem Uncomplicated asthma, unspecified asthma severity J45.909 Active 952260692 Problem care home 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 Z79.4 Active 069275539 Problem Anorexia R63.0 Active 27170511 Problem Mixed hyperlipidemia E78.2 Active 120980304 Problem Weight loss R63.4 Active 145585103 ALLERGIES No Information ENCOUNTERS Encounter Location Date Diagnosis [facility] [id number] [address] Jan, [facility] [id number], [place] [address] Dec, [facility] [address] [id number] Nov, Asthma exacerbation J45.901 [place] [address] [address] Oct, PTSD (post-traumatic stress disorder) F43.10 [place] [address] [address]- [address] Oct, [place] [address] 40295- 0445 Oct, PTSD (post-traumatic stress disorder) F43.10 and Tobacco dependency F17.200 [place] [address] [address]16- 4427 Oct, [place] [address] [address] 4864 Oct, Other dorsalgia M54.89 [place] [address] 85154- 4062 Oct, Anorexia R63.0 [place] [address] 039619- 8911 September, PTSD (post-traumatic stress disorder) F43.10 [place] [address] 55196- 6376 September, Low TSH level R94.6 [place] [address] 09794- 5946 September, Other dorsalgia M54.89 [place] [address] 79148- 8246 September, Annual physical exam Z00.00 and Migraine without aura and without status migrainosus, not intractable G43.009 [place] [id number] [place] [address] 21851- 6315 September, Abnormal TSH R94.6 and Dysfunction of left eustachian tube H69.82 [place] [address], [place] [address] Aug, [facility] [id number] [place] [address] 09365- 7686 Aug, Anorexia R63.0 [facility] [address] [id number] Aug, Dental examination Z01.20 and Xerostomia K11.7 [facility] [id number] [place] [address] 84447- 6953 Aug, Neuropathy G62.9 [facility] [id number] [place] [address] 41954 4363 Aug, [facility] [id number] [place] [address] 92842- 3314 Aug, Other dorsalgia M54.89 [facility] [id number] [place] [address] 12261- 5958 Aug, Type 2 diabetes mellitus with diabetic autonomic (poly) neuropathy E11.43 ; Diabetic polyneuropathy associated with type 2 diabetes mellitus E11.42 ; Bronchitis J40 ; Gastroparesis K31.84 and Reactive depression F32.9 [facility] [id number] [place] [address] 66980- 5306 Aug, PTSD (post-traumatic stress disorder) F43.10 [facility] [id number] [place] [address] 41312- 2257 Aug, Other dorsalgia M54.89 and Anorexia R63.0 [facility] [id number] [place] [address] 84439- 9493 Jul, [facility] [id number] [place] [address] 33986- 6515 Jul, Other dorsalgia M54.89 [facility] [id number] [place] [address] 18494- 3987 Jul, [facility] [address] [place] [address] 7847 Jul, [facility] [id number] [place] [address] 46256- 2468 Jul, PTSD (post-traumatic stress disorder) F43.10 [facility] [id number] [place] [address] 14938- 2340 Jul, [facility] [address] 26091- 2891 Jul, [facility] [address] 74603- 9319 Jul, [facility] [address] 18885- 5025 Jul, Anorexia R63.0 [facility] [address] 25951- 2850 Jun, [facility] [address] 12291- 7515 Jun, Vaginal discharge N89.8 ; Visit for gynecologic examination Z01.419 and Pelvic pressure in female R10.2 [facility] [id number] [place] [address] 28421- 1225 Jun, [facility] [id number] [place] [address] 35993- 6657 Jun, Other dorsalgia M54.89 [facility] [id number] [place] [address] 33717- 6001 Jun, [facility] [id number] [place] [address] 97944- 7396 Jun, [facility] [id number] [place] [address] 67771- 8814 Jun, [facility] [id number] [place] [address] 26487- 8375 May, Back pain M54.9 [facility] [id number] [place] [address] 04935- 4674 May, Anorexia R63.0 [facility] [address] 84736- 1176 May, Other dorsalgia M54.89 [facility] [address] 99544- 4026 May, [facility] [address] 55935- 1906 May, Bronchitis J40 [facility] [address] 54998- 1984 May, Type 2 diabetes mellitus with diabetic autonomic (poly) neuropathy E11.43 ; care home 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 Z79.4 ; Back pain M54.9 and Neuropathy G62.9 [facility] [address] 51659- 6226 May, Left breast mass N63.20 [facility] [id number] [place] [address] 42665- 6752 May, [facility] [address] 31541- 1268 Apr, Other dorsalgia M54.89 [facility] [id number] [place] [address] 87555 2546 Apr, Anorexia R63.0 [facility] [id number] [place] [address] 30810- 8496 Apr, Anorexia R63.0 [facility] [id number] [place] [address] 49221- 5823 Apr, Mass of left breast N63.20 [facility] [id number] [place] [address] 94619- 8806 Apr, [facility] [id number] [place] [address] 07201- 2165 Apr, [place] [address] [place] [address] 18537- 0187 Apr, Diarrhea of presumed infectious origin A09 [facility] [id number] [place] [address] 62290- 3402 Apr, Encounter for immunization Z23 [facility] [id number] [place] [address] 44280- 0927 Apr, [facility] [id number] [place] [address] 12722- 7587 Mar, Other dorsalgia M54.89 [facility] [id number] [place] [address] 37315- 4764 Mar, [facility] [id number] [place] [address] 58452- 1801 Mar, [facility] [id number] [place] [address] 53355- 1738 Mar, Anorexia R63.0 [facility] [id number] [place] [address] 91465- 9921 Mar, [facility] [id number] [place] [address] 81291- 6971 Mar, Other dorsalgia M54.89 [facility] [id number] [place] [address] 64963- 4047 Mar, [facility] [id number] [place] [address] 53464- 1152 Mar, Encounter for immunization Z23 [facility] [id number] [place] [address] 10104- 9551 Feb, Anorexia R63.0 [facility] [id number] [place] [address] 78422- 9496 Feb, Diabetes E11.9 [facility] [id number] [place] [address] 16066- 2070 Feb, Back pain M54.9 and Diabetes E11.9 [facility] [id number] [place] [address] 99928- 6710 Feb, Diabetes E11.9 [facility] [address] 47802- 7357 Feb, Neuropathy G62.9 [facility] [address] 99412- 2064 Feb, Encounter for immunization Z23 ; Epigastric pain R10.13 ; Weight loss, abnormal R63.4 and Neuropathy G62.9 [facility] [address] [id number] Feb, [facility] [address] 04923- 8998 Feb, [facility] [address] 00883- 4829 Feb, Intractable vomiting with nausea, unspecified vomiting type R11.2 [facility] [address] 85969 -1974 Feb, Chronic nausea R11.0 [facility] [address] 70718- 5074 Feb, Other dorsalgia M54.89 [facility] [address] 84655- 3155 Jan, [facility] [address] 49013- 5115 Jan, [facility] [address] 24178- 4185 Jan, [facility] [address] 77669- 6849 Jan, [facility] [address] 50045- 4886 Jan, Asthma exacerbation J45.901 ; Bronchitis J40 and Neuropathy G62.9 [facility] [id number] [place] [address] 52799 2546 06 Jan, 2017 Anorexia R63.0 [facility] [id number] [place] [address] 25306 2546 Jan, Other dorsalgia M54.89 [facility] [id number] [place] [address] 58715- 0636 Dec, [facility] [id number] [place] [address] 94910- 2616 Dec, [facility] [id number] [place] [address] 22901- 9329 Dec, Anorexia R63.0 [facility] [id number] [place] [address] 22292- 9752 Dec, Primary insomnia F51.01 [facility] [id number] [place] [address] 83826- 3559 Dec, Other dorsalgia M54.89 [facility] [id number] [place] [address] 87035- 2733 Dec, [facility] [id number] [place] [address] 75475- 3442 Nov, [facility] [id number] [place] [address] 89871- 6384 Nov, [facility] [id number] [place] [address] 21311- 2232 Nov, [facility] [id number] [place] [address] 64412- 2580 Nov, History of colon polyps Z86.010 [facility] [id number] [place] [address] 58242- 8668 Nov, Weight loss R63.4 ; Nausea and vomiting, intractability of vomiting not specified, unspecified vomiting type R11.2 and Abnormal LFTs R79.89 [facility] [id number] [place] [address] 37130- 1935 18 Nov, 2016 [facility] [id number] [place] [address] 43746- 7445 Nov, Neuropathy G62.9 and Pain in right knee M25.561 [facility] [id number] [place] [address] 27458- 3522 12 Nov, 2016 Back pain M54.9 [facility] [id number] [place] [address] 47219- 9170 10 Nov, 2016 [facility] [id number] [place] [address] 93243- 0700 08 Nov, 2016 Bronchitis J40 [facility] [id number] [place] [address] 17459- 3480 Nov, Weight loss R63.4 [facility] [id number] [place] [address] 97895- 6755 16 Oct, 2016 Back pain M54.9 [facility] [id number] [place] [address] 38012- 0551 16 Oct, 2016 [facility] [id number] [place] [address] 13788- 2999 14 Oct, 2016 Back pain M54.9 [facility] [id number] [place] [address] 93333- 7550 Oct, Type 2 diabetes mellitus without complications E11.9 and Bronchitis J40 [facility] [id number] [place] [address] 75827- 2678 05 Oct, 2016 [facility] [id number] [place] [address] 16687- 8359 Oct, [facility] [id number] [place] [address] 94830- 0978 September, Gastroparesis K31.84 ; Type 2 diabetes mellitus with diabetic autonomic (poly)neuropathy E11.43 and Neuropathy G62.9 [facility] [id number] [place] [address] 96574- 3635 September, Other dorsalgia M54.89 [facility] [id number] [place] [address] 70236- 3167 September, [facility] [id number] [place] [address] 40668- 8526 September, [facility] [id number] [place] [address] 55791- 2870 Aug, Gastroparesis K31.84 and Radicular leg pain M54.10 [facility] [id number] [place] [address] 53562- 5715 Aug, Anorexia R63.0 [facility] [id number] [place] [address] 90226- 3900 Aug, Bronchitis J40 [facility] [id number] [place] [address] 35509- 2016 Aug, Back pain M54.9 [facility] [id number] [place] [address] 82178- 3275 Aug, Routine gynecological examination Z01.419 ; Routine screening for STI (sexually transmitted infection) Z11.3 and Yeast infection of the vagina B37.3 [facility] [id number] [place] [address] 56547- 9310 Jul, Other dorsalgia M54.89 [facility] [id number] [place] [address] 40363- 2384 Jul, Diabetes E11.9 and Gastroparesis K31.84 [facility] [id number] [place] [address] 46276- 9845 Jun, [facility] [id number] [place] [address] 98421- 3163 Jun, Back pain M54.9 [facility] [id number] [place] [address] 75500- 9752 Jun, Neuropathy G62.9 [facility] [address] [place] [address] [id number] 02 Jun, 2016 Encounter for dental examination Z01.20 [facility] [id number] [place] [address] 22856- 0810 Jun, Gastroparesis 536.3 and Anorexia R63.0 [facility] [address] 65450- 2211 May, Other dorsalgia M54.89 [facility] [address] 44798- 0378 May, Periumbilical abdominal pain R10.33 ; Weight loss R63.4 and Gastroparesis K31.84 [facility] [address] 64765- 8111 May, Back pain M54.9 [facility] [address] 57936- 5418 Apr, Anorexia R63.0 [facility] [address] 55768 2543 Apr, Anorexia R63.0 [facility] [address] 47968- 2548 Apr, Back pain M54.9 [facility] [address] 61984 2549 Apr, Back pain M54.9 [facility] [id number] [place] [address] 39235 2548 Apr, [facility] [address] 24751 2541 Apr, Bronchitis J40 and Neuropathy G62.9 [facility] [address] 88107- 2544 Apr, Neuropathy G62.9 [facility] [address] 45392- 1175 Apr, [facility] [address] [place] [address] 39394- 1472 Apr, Back pain M54.9 [facility] [id number] [place] [address] 74657- 6366 Mar, Type 2 diabetes mellitus with diabetic autonomic (poly) neuropathy E11.43 [facility] [id number] [place] [address] 77234- 4602 Mar, Type 2 diabetes mellitus without complications E11.9 [facility] [id number] [place] [address] 38705- 8613 Mar, Neuropathy G62.9 [facility] [id number] [place] [address] 94112- 0756 Mar, [facility] [id number] [place] [address] 59362- 8817 Mar, Breast cancer screening Z12.39 [facility] [id number] [place] [address] 66638- 0214 Mar, Other dorsalgia M54.89 [facility] [id number] [place] [address] 16717- 8150 Feb, [facility] [id number] [place] [address] 10810- 5279 Jan, Neuropathy G62.9 ; Type 2 diabetes mellitus with diabetic autonomic (poly)neuropathy E11.43 ; Uncomplicated asthma, unspecified asthma severity J45.909 and Encounter for immunization Z23 [facility] [id number] [place] [address] 49195- 0436 Jan, [facility] [id number] [place] [address] 08049- 4896 Jan, [facility] [id number] [place] [address] 98432- 6171 Dec, [facility] [address] [place] [address]- 1281 Dec, [facility] [id number] [place] [address] 72939- 6308 Nov, [facility] [address] 44485- 7850 Nov, Back pain M54.9 [facility] [address] 41274- 4558 Nov, Neuropathy G62.9 ; Mixed hyperlipidemia E78.2 ; Type 2 diabetes mellitus with diabetic autonomic (poly)neuropathy E11.43 and care home 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 Z79.4 [facility] [address] 59297- 6823 Oct, [facility] [address] 87193- 7740 Oct, Other dorsalgia M54.89 [facility] [address] 41337- 3663 September, Primary insomnia F51.01 [facility] [id number] [place] [address] 04495- 9465 September, [facility] [id number] [place] [address] 95409- 7619 Aug, Other dorsalgia M54.89 [facility] [id number] [place] [address] 58179- 4037 Jul, [facility] [id number] [place] [address] 72132- 4555 Jul, Other dorsalgia M54.89 [facility] [address] 38995- 1681 Jul, Diabetes E11.9 ; Back pain M54.9 ; Neuropathy G62.9 and Gastroparesis K31.84 [facility] [id number] [place] [address] 67627- 9502 Jun, [facility] [address] [facility] [id number] [address] 2545 Jun, Other dorsalgia M54.89 [facility] [address] [facility] [id number] [place] [address] 98199 2546 May, [facility] [id number] [place] [address] [id number] 2546 May, Radicular leg pain M54.10 and Other dorsalgia M54.89 [facility] [address] [facility] [id number] [place] [address] 2546 Apr, [facility] [id number] [place] [address] [id number] 2546 Mar, [facility] [id number] [place] [address] [id number] 2546 Mar, [facility] [id number] [place] [address] [id number] 254 Mar, Radicular leg pain M54.10 [facility] [address] [id number], [place] [address] Feb, [facility] [id number] [place] [address] 50784- 2582 Feb, [facility] [id number], [place] [address] Feb, [facility] [id number] [place] [address] [id number] 254 Jan, [facility] [address] [id number], [place] [address] 2540 Jan, IBS (irritable bowel syndrome) 564.1 [facility] [address] [id number], [place] [address] 2546 Jan, [facility] [id number], [place] [address] Jan, [facility] [id number] [address] Jan, Diabetes mellitus without mention of complication, type II or unspecified type, not stated as uncontrolled 250.00 ; Gastroparesis 536.3 and Hypoacusis 389.9 [facility] [id number] [place] [address] 68760- 5850 Jan, [facility] [id number] [place] [address] 36344- 7117 Jan, [facility] [id number] [place] [address] 45029- 8775 Dec, [facility] [id number] [place] [address] 12634- 8747 Dec, [facility] [id number] [place] [address] 48287- 5607 Dec, [facility] [id number] [place] [address] [id number]- 8780 Dec, Back pain 724.5 and Gastroparesis 536.3 [facility] [id number] [place] [address] 73680- 9418 Nov, [facility] [id number] [place] [address] [id number] Nov, Dental examination V72.2 [facility] [id number] [place] [address] 75013- 1180 Nov, [facility] [id number] [place] [address] 09480- 7194 Nov, [facility] [id number] [place] [address] 85491- 2111 Nov, Depressive disorder, not elsewhere classified 311 and No condition on Edwards II V71.09 [facility] [id number], [place] [address] Nov, Diabetes 250.00 and Symptomatic menopausal or female climacteric states 627.2 [facility] [address] [facility] [id number], [place] [address] Oct, [facility] [address] [facility] [facility] [id number] [place] [address] Oct, Lumbar strain 847.2 [facility] [address] [id number], [place] [address] Oct, Gastroparesis 536.3 and Unspecified myalgia and myositis 729.1 [facility] [address] [facility] [id number] [place] [address] Aug, [facility] [address] [facility] [id number] [place] [address] Aug, [facility] [address] [facility] [id number], [place] [address] Jul, [facility] [id number], [place] [address] Jul, [facility] [address] [facility] [id number], [place] [address] Jul, [facility] [id number] [place] [address] Jul, [facility] [address] [id number], [place] [address] Jul, [facility] [id number], [place] [address] 18 Jun, 2014 [facility] [address] [facility] [id number], [place] [address] Jun, [facility] [address] [facility] [id number] [place] [address] Jun, [facility] [address] [id number], [place] [address] May, [facility] [address] [id number], [place] [address] May, [facility] [place] [facility] [address] [id number] [place] [address] Mar, [facility] [place] [facility] [address] [id number] [place] [address] Mar, [facility] [place] [facility] [address] [id number] [place] [address] 2012 Mar, [facility] [place] [facility] [address] [id number] [place] [address] Mar, [facility] [place] [facility] [address] [id number] [place] [address] Mar, [facility] [place] [facility] [address] [id number] [place] [address] Mar, [facility] [place] [facility] [address] [id number] [place] [address] Feb, [facility] [place] [facility] [address] [id number] [place] [address] Feb, [facility] [place] [facility] [address] [id number] [place] [address] Nov, [facility] [place] [facility] [address] [id number] [place] [address] Nov, [facility] [place] [facility] [address] [id number], [place] [address] Nov, [facility] [place] [facility] [address] [id number], [place] [address] Oct, [facility] [place] [facility] [address] [id number] [place] [address] September, [facility] [place] [facility] [address] [id number], [place] [address] Aug, [facility] [place] [facility] [address] [id number] [place] [address] Aug, [facility] [place] [facility] [address] [id number] [place] [address] Aug, [facility] [address] [id number] [place] [address] Aug, [facility] [place] [facility] [address] [id number] [place] [address] 10 Aug, 2012 [facility] [address] [id number] [place] [address] Aug, [facility] [place] [facility] [address] [id number] [place] [address] Aug, [facility] [address] [id number] [place] [address] Aug, [facility] [address] [facility] [id number] [place] [address] Jul, [facility] [address] [facility] [id number] [place] [address] Jul, [facility] [address] [id number] [place] [address] Jun, [facility] [address] [id number] [place] [address] Jun, [facility] [address] [facility] [id number] [place] [address] Jun, [facility] [place] [facility] [address] [facility] [id number] [place] [address] Jun, [facility] [place] [facility] [address] [id number] [place] [address] 25[address] Jun, [facility] [place] [facility] [address] [id number] [place] [address] Jun, [facility] [place] [facility] [address] [facility] [id number] [place] [address] 04 Jun, 2012 [facility] [place] [facility] [address] [facility] [id number] [place] [address] May, [facility] [address] [facility] [id number], [place] [address] May, [facility] [address] [facility] [id number], [place] [address] May, [facility] [address] [facility] [id number], [place] [address] May, [facility] [address] [facility] [id number], [place] [address] Mar, [facility] [address] [facility] [id number], [place] [address] Mar, [facility] [address] [facility] [id number], [place] [address] Jan, IMMUNIZATIONS No Known Immunizations SOCIAL HISTORY [...] High blood sugar 2016 Hospitalization History DKA, vomitting-[facility] 03/05/17 Hospitalization History hospital stay at [facility] for stomach issues 2016
--- OUTSIDE RECORDS SUMMARY | 2018-01-27 20:16 | XMS REPORT ---
Author Author H[facility]ACE HIGGINS [facility] Address [address] [place] [address] Care Team Providers Care Financial Reporting Accountant Name Role Phone HORACE HIGGINS Unavailable PROBLEMS Type Condition ICD9-CM Code CXY03-MS Code Onset Dates Condition Status SNOMED Code Problem Weight loss R63.4 Active 271562561 Problem Primary insomnia F51.01 Active 8717990 Problem History of colon polyps Z86.010 Active 418536241 Problem Annual physical exam Z00.00 Active 270481245 Problem Migraine without aura and without status migrainosus, not intractable G43.009 Active 740901224 Problem Reactive depression F32.9 Active 89419137 Problem Asthma exacerbation J45.901 Active 980378446 Problem PTSD (post-traumatic stress disorder) F43.10 Active 46376735 Problem Diabetic polyneuropathy associated with type 2 diabetes mellitus E11.42 Active 88803589 Problem Neuropathy G62.9 Active 970800712 Problem Diabetes E11.9 Active 76688847 Problem Low TSH level R94.6 Active 673014032 Problem Back pain M54.9 Active 067672967 Problem Mixed hyperlipidemia E78.2 Active 439078455 Problem Type 2 diabetes mellitus with diabetic autonomic (poly)neuropathy E11.43 Active 51814863 Problem Gastroparesis K31.84 Active 648700029 Problem Uncomplicated asthma, unspecified asthma severity J45.909 Active 981937099 Problem 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 Active 747181453 Problem Anorexia R63.0 Active 37506654 ALLERGIES No Information ENCOUNTERS Encounter Location Date Diagnosis [facility] [address] [address] Oct, [facility] [id number] [address] Oct, [facility] [id number] [place] [address] 78564- 9570 September, PTSD (post-traumatic stress disorder) F43.10 [address] [place] [address] September, Low TSH level R94.6 [place] [address] 65767- 7255 September, Other dorsalgia M54.89 [place] [address] [place] [id number]- 1739 September, Annual physical exam Z00.00 and Migraine without aura and without status migrainosus, not intractable G43.009 [place] [address] [place] [id number]- 2675 September, Abnormal TSH R94.6 and Dysfunction of left eustachian tube H69.82 [place] [address] [place] [id number] 6397 Aug, [place] [address] 36369 4523 Aug, Anorexia R63.0 [facility] [address] [id number] Aug, Dental examination Z01.20 and Xerostomia K11.7 [place] [address] 46368- 1762 Aug, Neuropathy G62.9 [place] [address] 64595- 8678 Aug, [place] [address] 73821- 4922 Aug, Other dorsalgia M54.89 [place] [address] [place] [id number]- 5013 Aug, Type 2 diabetes mellitus with diabetic autonomic (poly) neuropathy E11.43 ; Diabetic polyneuropathy associated with type 2 diabetes mellitus E11.42 ; Bronchitis J40 ; Gastroparesis K31.84 and Reactive depression F32.9 [facility] [id number] [place] [address] 10967 2546 Aug, PTSD (post-traumatic stress disorder) F43.10 [facility] [id number] [place] [address] 05192- 2546 Aug, Other dorsalgia M54.89 and Anorexia R63.0 [facility] [address] 60954 2546 Jul, [facility] [address] 27709 2546 Jul, Other dorsalgia M54.89 [facility] [id number] [place] [address] 94594 2546 Jul, [facility] [address] 76779 2546 Jul, [facility] [address] 28506 2546 Jul, PTSD (post-traumatic stress disorder) F43.10 [facility] [address] 49865 2546 Jul, [facility] [id number] [place] [address] 12117 2546 Jul, [facility] [id number] [place] [address] 40772 2546 Jul, [facility] [id number] [place] [address] 34625 2546 Jul, Anorexia R63.0 [facility] [id number] [place] [address] 47744 2546 Jun, [facility] [id number] [place] [address] 60463 2546 Jun, Vaginal discharge N89.8 ; Visit for gynecologic examination Z01.419 and Pelvic pressure in female R10.2 [facility] [address] 34655- 5201 Jun, [facility] [address] 32202- 3256 Jun, Other dorsalgia M54.89 [facility] [address] 56984- 9694 Jun, [facility] [address] 28531- 0174 Jun, [facility] [address] 50487- 6896 Jun, [facility] [address] 28900- 9962 May, Back pain M54.9 [facility] [address] 77899- 0276 May, Anorexia R63.0 [facility] [address] 49546- 0154 May, Other dorsalgia M54.89 [facility] [address] 96624- 7683 May, [facility] [address] 89677- 0464 May, Bronchitis J40 [facility] [address] 12804- 1609 May, Type 2 diabetes mellitus with diabetic autonomic (poly) neuropathy E11.43 ; 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 ; Back pain M54.9 and Neuropathy G62.9 [facility] [address] 62550- 9355 May, Left breast mass N63.20 [facility] [address] 04427- 5172 May, [facility] [id number] [place] [address] 96883- 0906 Apr, Other dorsalgia M54.89 [facility] [address] 86864 2546 Apr, Anorexia R63.0 [facility] [id number] [place] [address] 07167 2546 Apr, Anorexia R63.0 [facility] [address] 91286 2542 Apr, Mass of left breast N63.20 [facility] [address] 90913 2546 Apr, [facility] [id number] [place] [address] 19665 2540 Apr, [facility] [address] 70336- 3832 Apr, Diarrhea of presumed infectious origin A09 [facility] [id number] [place] [address] 76331 2549 Apr, Encounter for immunization Z23 [facility] [address] 07292- 2547 05 Apr, 2017 [facility] [id number] [place] [address] 30370- 2545 Mar, Other dorsalgia M54.89 [facility] [id number] [place] [address] 85829 2546 Mar, [facility] [id number] [place] [address] 77619 2544 Mar, [facility] [id number] [place] [address] 12273 2546 16 Mar, 2017 Anorexia R63.0 [facility] [id number] [place] [address] 61431- 2544 Mar, [facility] [id number] [place] [address] 30651- 0724 Mar, Other dorsalgia M54.89 [facility] [address] 43264- 9419 Mar, [facility] [id number] [place] [address] 71470- 5446 Mar, Encounter for immunization Z23 [facility] [address] 07173- 5328 Feb, Anorexia R63.0 [facility] [address] 13086- 8427 Feb, Diabetes E11.9 [facility] [address] 11039- 1945 Feb, Back pain M54.9 and Diabetes E11.9 [place] [address] 89111- 8751 Feb, Diabetes E11.9 [facility] [id number] [place] [address] 20929- 4071 Feb, Neuropathy G62.9 [facility] [id number] [place] [address] 83119- 2009 Feb, Encounter for immunization Z23 ; Epigastric pain R10.13 ; Weight loss, abnormal R63.4 and Neuropathy G62.9 [facility] [id number] [place] [address] [id number] Feb, [facility] [id number] [place] [address] 12137- 5371 Feb, [facility] [id number] [place] [address] 73435- 9826 Feb, Intractable vomiting with nausea, unspecified vomiting type R11.2 [facility] [id number] [place] [address] 40541 -8913 Feb, Chronic nausea R11.0 [facility] [id number] [place] [address] 23477- 1426 Feb, Other dorsalgia M54.89 [facility] [address] 31924- 4846 Jan, [facility] [address] 44898- 3888 Jan, [facility] [address] 91607- 7876 Jan, [facility] [address] 11810- 3631 Jan, [facility] [address] 28108- 7530 Jan, Asthma exacerbation J45.901 ; Bronchitis J40 and Neuropathy G62.9 [facility] [address] 44307- 2337 Jan, Anorexia R63.0 [facility] [address] 26100- 8682 Jan, Other dorsalgia M54.89 [facility] [id number] [place] [address] 75857- 4791 Dec, [facility] [id number] [place] [address] 16445- 9310 Dec, [facility] [id number] [place] [address] 63125- 4295 15 Dec, 2016 Anorexia R63.0 [facility] [id number] [place] [address] 15410 2548 14 Dec, 2016 Primary insomnia F51.01 [facility] [id number] [place] [address] 44407- 1703 Dec, Other dorsalgia M54.89 [facility] [id number] [place] [address] 03193- 0817 Dec, [facility] [address] [address]- 1221 Nov, [facility] [id number] [place] [address] 59190- 6751 Nov, [facility] [address] [address]- 2567 Nov, [facility] [id number] [place] [address] 27264- 7987 Nov, History of colon polyps Z86.010 [facility] [address] [place] [address] 97411- 7387 Nov, Weight loss R63.4 ; Nausea and vomiting, intractability of vomiting not specified, unspecified vomiting type R11.2 and Abnormal LFTs R79.89 [facility] [id number] [place] [address] 16937- 1758 Nov, [facility] [id number] [place] [address] 51495- 9924 Nov, Neuropathy G62.9 and Pain in right knee M25.561 [facility] [id number] [place] [address] 11519- 0758 Nov, Back pain M54.9 [facility] [address] [address]- 6557 Nov, [facility] [id number] [place] [address] 82156- 1230 Nov, Bronchitis J40 [facility] [address] [address]- 7641 Nov, Weight loss R63.4 [facility] [id number] [place] [address] 33888- 5960 Oct, Back pain M54.9 [facility] [address] [address]- 0199 Oct, [facility] [id number] [place] [address] 84714- 5300 14 Oct, 2016 Back pain M54.9 [facility] [address] 21401- 3743 13 Oct, 2016 Type 2 diabetes mellitus without complications E11.9 and Bronchitis J40 [facility] [id number] [place] [address] 08502- 1751 05 Oct, 2016 [facility] [address] 89014- 7571 Oct, [facility] [id number] [place] [address] 14387- 9148 September, Gastroparesis K31.84 ; Type 2 diabetes mellitus with diabetic autonomic (poly)neuropathy E11.43 and Neuropathy G62.9 [place] [address] 91115- 1669 September, Other dorsalgia M54.89 [facility] [address] 38312- 9455 September, [facility] [address] 36529- 5598 September, [facility] [id number] [place] [address] 57402- 8131 Aug, Gastroparesis K31.84 and Radicular leg pain M54.10 [place] [address] [id number] [place] [address] 82288- 1412 Aug, Anorexia R63.0 [facility] [id number] [place] [address] 52565- 4670 Aug, Bronchitis J40 [facility] [id number] [place] [address] 80000- 9457 Aug, Back pain M54.9 [facility] [id number] [place] [address] 58170- 0426 Aug, Routine gynecological examination Z01.419 ; Routine screening for STI (sexually transmitted infection) Z11.3 and Yeast infection of the vagina B37.3 [facility] [id number] [place] [address] 71556- 6485 Jul, Other dorsalgia M54.89 [facility] [id number] [place] [address] 69220- 3108 Jul, Diabetes E11.9 and Gastroparesis K31.84 [facility] [address] 36936- 8333 Jun, [facility] [id number] [place] [address] 19617- 1530 Jun, Back pain M54.9 [facility] [address] 20480- 2208 14 Jun, 2016 Neuropathy G62.9 [facility] [address] [id number] 02 Jun, 2016 Encounter for dental examination Z01.20 [facility] [id number] [place] [address] 90965- 6066 Jun, Gastroparesis 536.3 and Anorexia R63.0 [facility] [id number] [place] [address] 63783- 6440 May, Other dorsalgia M54.89 [facility] [id number] [place] [address] 81772- 1583 May, Periumbilical abdominal pain R10.33 ; Weight loss R63.4 and Gastroparesis K31.84 [facility] [id number] [place] [address] 07389- 0574 May, Back pain M54.9 [facility] [id number] [place] [address] 80685- 5366 Apr, Anorexia R63.0 [facility] [address] [place] [address] 39837- 1238 Apr, Anorexia R63.0 [facility] [address] 47849- 6647 Apr, Back pain M54.9 [facility] [address] 95629- 9255 Apr, Back pain M54.9 [facility] [address] 28733- 3095 Apr, [facility] [address] 24988- 3663 Apr, Bronchitis J40 and Neuropathy G62.9 [facility] [address] 77114- 8864 Apr, Neuropathy G62.9 [facility] [address] 55083- 4957 Apr, [facility] [address] 78249- 9505 Apr, Back pain M54.9 [facility] [address] 93739- 6026 Mar, Type 2 diabetes mellitus with diabetic autonomic (poly) neuropathy E11.43 [facility] [address] 32231- 1872 Mar, Type 2 diabetes mellitus without complications E11.9 [facility] [address] 79595- 7536 Mar, Neuropathy G62.9 [facility] [id number] [place] [address] 83115- 9085 Mar, [facility] [address] 12942- 5032 Mar, Breast cancer screening Z12.39 [facility] [address] 70025- 1028 Mar, Other dorsalgia M54.89 [facility] [id number] [place] [address] 48623- 2182 Feb, [facility] [address] 33187- 8404 30 Jan, 2016 Neuropathy G62.9 ; Type 2 diabetes mellitus with diabetic autonomic (poly)neuropathy E11.43 ; Uncomplicated asthma, unspecified asthma severity J45.909 and Encounter for immunization Z23 [facility] [address] 52833- 7050 09 Jan, 2016 [facility] [address] 09052- 2943 Jan, [facility] [address] 20005- 1020 Dec, [place] [address] 59268- 3181 Dec, [place] [id number] [place] [address] 15049- 6702 Nov, [facility] [id number] [place] [address] 63467- 2083 Nov, Back pain M54.9 [place] [address] [id number] [place] [address] 93856- 0989 Nov, Neuropathy G62.9 ; Mixed hyperlipidemia E78.2 ; Type 2 diabetes mellitus with diabetic autonomic (poly)neuropathy E11.43 and 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 [place] [id number] [place] [address] 71188- 1882 Oct, [place] [address] 63622- 7101 Oct, Other dorsalgia M54.89 [facility] [id number] [place] [address] 83427- 2672 September, Primary insomnia F51.01 [place] [address] 11739- 3288 September, [facility] [id number] [place] [address] 54523- 5461 Aug, Other dorsalgia M54.89 [facility] [id number] [place] [address] 69844- 8543 Jul, [facility] [id number] [place] [address] 46554- 3259 Jul, Other dorsalgia M54.89 [facility] [id number] [place] [address] 64655- 1836 Jul, Diabetes E11.9 ; Back pain M54.9 ; Neuropathy G62.9 and Gastroparesis K31.84 [facility] [id number] [place] [address] 49787- 3477 Jun, [facility] [id number] [place] [address] 92072- 5059 Jun, Other dorsalgia M54.89 [facility] [id number] [place] [address] 76390- 1430 May, [facility] [id number] [place] [address] 85643- 5385 May, Radicular leg pain M54.10 and Other dorsalgia M54.89 [facility] [id number] [place] [address] 39384- 7236 Apr, [facility] [id number] [place] [address] 21437- 0442 Mar, [facility] [id number] [place] [address] 76808- 5252 Mar, [facility] [id number] [place] [address] 14016- 7522 Mar, Radicular leg pain M54.10 [facility] [id number] [place] [address] 15352- 5846 Feb, [facility] [address] [address]- 7046 Feb, [facility] [id number] [place] [address] 52120- 2481 Feb, [facility] [id number] [place] [address] 97505- 9310 Jan, [facility] [id number] [place] [address] 71513- 0240 Jan, IBS (irritable bowel syndrome) 564.1 [facility] [id number] [place] [address] 42581- 9174 Jan, [facility] [id number] [place] [address] 57588- 8335 Jan, [facility] [id number] [place] [address] 09730- 2492 Jan, Diabetes mellitus without mention of complication, type II or unspecified type, not stated as uncontrolled 250.00 ; Gastroparesis 536.3 and Hypoacusis 389.9 [facility] [id number] [place] [address] 34399- 9224 Jan, [facility] [id number] [place] [address] 29382- 1381 Jan, [facility] [id number] [place] [address] 17957- 6152 Dec, [facility] [id number] [place] [address] 84075- 1446 Dec, [facility] [id number] [place] [address] 63534- 6644 Dec, [facility] [id number] [place] [address] 06814- 9826 Dec, Back pain 724.5 and Gastroparesis 536.3 [facility] [id number] [place] [address] 44840- 6994 Nov, [facility] [id number] [id number] Nov, Dental examination V72.2 [facility] [id number] [address] 26[address] Nov, [facility] [id number] [address] 2265 Nov, [facility] [id number] [place] [address] [id number]- 4328 Nov, Depressive disorder, not elsewhere classified 311 and No condition on [place] II V71.09 [facility] [id number] [place] [address] 08862- 8185 Nov, Diabetes 250.00 and Symptomatic menopausal or female climacteric states 627.2 [facility] [id number] [address] 0993 Oct, [facility] [id number] [address] 6136 Oct, Lumbar strain 847.2 [facility] [id number] [address] 4340 Oct, Gastroparesis 536.3 and Unspecified myalgia and myositis 729.1 [facility] [id number] [address] 8721 Aug, [facility] [id number] [address] 5526 Aug, [facility] [id number] [address] 9934 Jul, [facility] [id number] [address] [address] Jul, [facility] [id number] [address] 5[address] Jul, [facility] [address] [id number] [place] [address] Jul, [facility] [place] [facility] [address] [id number] [place] [address] Jul, [facility] [place] [facility] [address] [id number] [place] [address] Jun, [facility] [place] [facility] [address] [id number] [place] [address] Jun, [facility] [place] [facility] [address] [id number] [place] [address] Jun, [facility] [place] [facility] [address] [id number] [place] [address] May, [facility] [place] [facility] [address] [id number] [place] [address] May, [facility] [place] [facility] [address] [id number] [place] [address] Mar, [facility] [place] [facility] [address] [id number] [place] [address] Mar, [facility] [place] [facility] [address] [id number] [place] [address] Mar, [facility] [place] [facility] [address] [id number] [place] [address] Mar, [facility] [place] [facility] [address] [id number] [place] [address] Mar, [facility] [place] [facility] [address] [id number] [place] [address] Mar, [facility] [place] [facility] [address] [id number] [place] [address] Feb, [facility] [place] [facility] [address] [id number] [place] [address] Feb, [facility] [place] [facility] [address] [id number] [place] [address] Nov, [facility] [address] [id number] [place] [address] Nov, [facility] [place] [facility] [address] [id number] [place] [address] Nov, [facility] [address] [id number] [place] [address] Oct, [facility] [place] [facility] [address] [id number] [place] [address] September, [facility] [address] [id number] [place] [address] Aug, [facility] [address] [id number] [place] [address] Aug, [facility] [address] [id number] [place] [address] Aug, [facility] [place] [facility] [address] [id number] [place] [address] Aug, [facility] [address] [id number] [place] [address] Aug, [facility] [place] [facility] [address] [id number] [place] [address] Aug, [facility] [place] [facility] [address] [id number] [place] [address] Aug, [facility] [place] [facility] [address] [id number] [place] [address] Aug, [facility] [place] [facility] [address] [id number] [place] [address] Jul, [facility] [place] [facility] [address] [id number] [place] [address] Jul, [facility] [place] [facility] [address] [id number] [place] [address] Jun, [facility] [place] [facility] [address] [id number] [place] [address] Jun, [facility] [id number] [place] [address] [address] Jun, [facility] [id number] [place] [address] 08 Jun, 2012 [facility] [id number] [place] [address] [address] Jun, [facility] [id number] [place] [address] Jun, [facility] [id number] [place] [address] Jun, [facility] [id number] [place] [address] May, [facility] [id number] [place] [address] May, [facility] [id number] [place] [address] May, [facility] [id number] [place] [address] May, [facility] [id number] [place] [address] Mar, [facility] [id number] [place] [address] Mar, [facility] [id number] [place] [address] Jan, IMMUNIZATIONS No Known Immunizations SOCIAL HISTORY Never Assessed REASON FOR VISIT Marinol 04/10 PLAN OF CARE VITAL SIGNS MEDICATIONS Medication [...] vomitting-[facility] 03/05/17 Hospitalization History hospital stay at [facility] for stomach issues 2016
--- OUTSIDE RECORDS SUMMARY | 2018-01-27 20:16 | XMS REPORT ---
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 084904731 Problem PTSD (post-traumatic stress disorder) F43.10 Active 45991746 Problem Asthma exacerbation J45.901 Active 979553825 Problem Weight loss R63.4 Active 755483442 Problem Anorexia R63.0 Active 29199789 Problem Primary insomnia F51.01 Active 8166515 Problem History of colon polyps Z86.010 Active 467864733 Problem Neuropathy G62.9 Active 250998625 Problem Diabetes E11.9 Active 91615305 Problem Depressive disorder, not elsewhere classified 311 Active 53155829 Problem Gastroparesis K31.84 Active 205934257 Problem Back pain M54.9 Active 196141028 Problem Mixed hyperlipidemia E78.2 Active 244906096 ALLERGIES Substance Reaction Event Type Date Status Coumadin vomitied blood Drug Allergy Nov, Active Toradol swells, itch from inside out Drug Allergy Nov, Active Nsaids (non-steroidal Anti-inflammatory Drug) triggers asthma, can't breathe, swells form inside out. Non Drug Allergy Nov, Active ENCOUNTERS Encounter Location Date Diagnosis [facility] [id number] [id number] Aug, [facility] [address] [address] Aug, [facility] [id number] [place] [address] 76935- 9757 Aug, [facility] [address] [address] Aug, [facility] [id number] [place] [address] 02219- 2566 Jul, [facility] [id number] [place] [address] 30932- 9306 Jul, Other dorsalgia M54.89 [facility] [id number] [place] [address] 13578- 5207 Jul, [facility] [id number] [place] [address] 68216- 0370 Jul, [facility] [id number] [place] [address] 98651- 1094 Jul, PTSD (post-traumatic stress disorder) F43.10 [facility] [id number] [place] [address] 47657- 0907 Jul, [facility] [id number] [place] [address] 58962- 1806 Jul, [facility] [id number] [place] [address] 28923- 3259 Jul, [facility] [id number] [place] [address] 84425- 7723 Jul, Anorexia R63.0 [facility] [id number] [address] 8710 Jun, [facility] [address] [place] [address] 96160- 2828 Jun, Vaginal discharge N89.8 ; Visit for gynecologic examination Z01.419 and Pelvic pressure in female R10.2 [facility] [address] [address] 6396 Jun, [facility] [id number] [place] [address] 31278- 4570 Jun, Other dorsalgia M54.89 [facility] [id number] [place] [address] 72112- 8883 Jun, [facility] [address] 53348- 5511 Jun, [facility] [address] 25055- 9539 Jun, [facility] [address] 34831- 5673 May, Back pain M54.9 [facility] [address] 38282- 4098 May, Anorexia R63.0 [facility] [address] 08337- 3926 May, Other dorsalgia M54.89 [facility] [id number] [place] [address] 84684- 9002 May, [facility] [id number] [place] [address] 69338- 7552 May, Bronchitis J40 [facility] [id number] [place] [address] 90860- 4788 May, Type 2 diabetes mellitus with diabetic autonomic (poly) neuropathy E11.43 ; correction 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 Z79.4 ; Back pain M54.9 and Neuropathy G62.9 [facility] [id number] [place] [address] 16915- 4518 May, Left breast mass N63.20 [facility] [address] 63586- 3979 May, [facility] [id number] [place] [address] 41627- 1641 Apr, Other dorsalgia M54.89 [facility] [address] 15964- 7313 Apr, Anorexia R63.0 [facility] [id number] [place] [address] 22630- 0426 Apr, Anorexia R63.0 [facility] [id number] [place] [address] 57946- 2544 Apr, Mass of left breast N63.20 [facility] [address] 90168 2546 Apr, [facility] [id number] [place] [address] 19041 2544 Apr, [facility] [address] 95885- 4283 Apr, Diarrhea of presumed infectious origin A09 [facility] [address] 34910- 0926 Apr, Encounter for immunization Z23 [facility] [id number] [place] [address] 88597- 8103 Apr, [facility] [id number] [place] [address] 98669- 3211 Mar, Other dorsalgia M54.89 [facility] [id number] [place] [address] 12821- 5928 Mar, [facility] [id number] [place] [address] 93479 2542 Mar, [facility] [id number] [place] [address] 83551 2549 Mar, Anorexia R63.0 [facility] [id number] [place] [address] 11706 2546 Mar, [facility] [id number] [place] [address] 59614- 2543 Mar, Other dorsalgia M54.89 [facility] [id number] [place] [address] 05482- 2659 Mar, [facility] [id number] [place] [address] 01969- 6790 Mar, Encounter for immunization Z23 [facility] [id number] [place] [address] 76995- 2175 Feb, Anorexia R63.0 [facility] [id number] [place] [address] 48850- 3958 Feb, Diabetes E11.9 [facility] [address] 60568- 9110 Feb, Back pain M54.9 and Diabetes E11.9 [facility] [address] 27077- 7045 Feb, Diabetes E11.9 [facility] [address] 06054- 9287 Feb, Neuropathy G62.9 [facility] [address] 10594- 6559 Feb, Encounter for immunization Z23 ; Epigastric pain R10.13 ; Weight loss, abnormal R63.4 and Neuropathy G62.9 [facility] [address] [id number] Feb, [facility] [id number] [place] [address] 66358- 2128 Feb, [facility] [id number] [place] [address] 61206- 2304 Feb, Intractable vomiting with nausea, unspecified vomiting type R11.2 [facility] [id number] [place] [address] 85093 -9043 Feb, Chronic nausea R11.0 [facility] [id number] [place] [address] 05697- 8853 Feb, Other dorsalgia M54.89 [facility] [address] 97455- 2756 Jan, [facility] [id number] [place] [address] 94032 2546 Jan, [facility] [id number] [place] [address] 94009 2546 Jan, [facility] [id number] [place] [address] 79857 2546 Jan, [facility] [id number] [place] [address] 76871 2546 Jan, Asthma exacerbation J45.901 ; Bronchitis J40 and Neuropathy G62.9 [facility] [address] 16275 2546 Jan, Anorexia R63.0 [facility] [id number] [place] [address] 67592- 8133 Jan, Other dorsalgia M54.89 [facility] [id number] [place] [address] 00620- 2799 Dec, [facility] [id number] [place] [address] 17371- 5805 Dec, [facility] [id number] [place] [address] 41023- 1903 15 Dec, 2016 Anorexia R63.0 [facility] [id number] [place] [address] 35573- 5012 Dec, Primary insomnia F51.01 [facility] [id number] [place] [address] 98205 2542 Dec, Other dorsalgia M54.89 [facility] [id number] [place] [address] 46653 2546 Dec, [facility] [id number] [place] [address] 83892 2546 Nov, [facility] [id number] [place] [address] 75201- 0669 Nov, [facility] [address] [address]- 1101 Nov, [facility] [id number] [place] [address] 01484- 8743 Nov, History of colon polyps Z86.010 [facility] [id number] [place] [address] 25756- 4360 Nov, Weight loss R63.4 ; Nausea and vomiting, intractability of vomiting not specified, unspecified vomiting type R11.2 and Abnormal LFTs R79.89 [facility] [id number] [place] [address] 86709- 8942 Nov, [facility] [id number] [place] [address] 68853- 7341 Nov, Neuropathy G62.9 and Pain in right knee M25.561 [id number] [place] [address] 96951- 1046 Nov, Back pain M54.9 [facility] [id number] [place] [address] 68216- 8396 Nov, [facility] [id number] [place] [address] 11981- 5505 Nov, Bronchitis J40 [facility] [id number] [place] [address] 72410- 2774 Nov, Weight loss R63.4 [facility] [id number] [place] [address] 13706- 0879 16 Oct, 2016 Back pain M54.9 [facility] [id number] [place] [address] 90208- 9191 16 Oct, 2016 [facility] [id number] [place] [address] 27901- 1580 14 Oct, 2016 Back pain M54.9 [facility] [id number] [place] [address] 78658- 7591 Oct, Type 2 diabetes mellitus without complications E11.9 and Bronchitis J40 [facility] [id number] [place] [address] 17540- 6446 Oct, [facility] [id number] [place] [address] 60132- 0114 Oct, [facility] [id number] [place] [address] 58263- 8707 September, Gastroparesis K31.84 ; Type 2 diabetes mellitus with diabetic autonomic (poly)neuropathy E11.43 and Neuropathy G62.9 [address] [facility] [id number] [place] [address] 94321- 0623 September, Other dorsalgia M54.89 [address] [facility] [id number] [place] [address] 38086- 9162 September, [facility] [address] 07621- 0773 September, [facility] [id number] [place] [address] 45853- 8613 Aug, Gastroparesis K31.84 and Radicular leg pain M54.10 [facility] [id number] [place] [address] 31027- 6289 Aug, Anorexia R63.0 [address] [id number] [place] [address] 90531- 6016 Aug, Bronchitis J40 [facility] [id number] [place] [address] 72540- 8933 Aug, Back pain M54.9 [address] [id number] [place] [address] 62694- 8942 Aug, Routine gynecological examination Z01.419 ; Routine screening for STI (sexually transmitted infection) Z11.3 and Yeast infection of the vagina B37.3 [address] [id number] [place] [address] 03373- 8081 Jul, Other dorsalgia M54.89 [facility] [address] [place] [address] 81351- 5141 Jul, Diabetes E11.9 and Gastroparesis K31.84 [facility] [id number] [place] [address] 82403- 1440 Jun, [facility] [address] 24823- 2460 Jun, Back pain M54.9 [facility] [id number] [place] [address] 63660- 4836 Jun, Neuropathy G62.9 [facility] [address] [id number] Jun, Encounter for dental examination Z01.20 [facility] [id number] [place] [address] 61390- 7114 Jun, Gastroparesis 536.3 and Anorexia R63.0 [facility] [id number] [place] [address] 53789- 1893 May, Other dorsalgia M54.89 [facility] [id number] [place] [address] 80056- 8597 May, Periumbilical abdominal pain R10.33 ; Weight loss R63.4 and Gastroparesis K31.84 [facility] [id number] [place] [address] 31109- 5482 May, Back pain M54.9 [facility] [id number] [place] [address] 78401- 3747 Apr, Anorexia R63.0 [facility] [address] 99890- 5666 Apr, Anorexia R63.0 [facility] [id number] [place] [address] 50059- 4959 Apr, Back pain M54.9 [facility] [id number] [place] [address] 31488- 5842 Apr, Back pain M54.9 [facility] [address] 35800- 3202 Apr, [facility] [id number] [place] [address] 05090- 7344 Apr, Bronchitis J40 and Neuropathy G62.9 [facility] [address] 91618- 5510 Apr, Neuropathy G62.9 [facility] [address] 89869- 8437 Apr, [facility] [address] 21190- 8255 Apr, Back pain M54.9 [facility] [address] 04411- 4278 Mar, Type 2 diabetes mellitus with diabetic autonomic (poly) neuropathy E11.43 [facility] [address] 45858- 8754 Mar, Type 2 diabetes mellitus without complications E11.9 [facility] [id number] [place] [address] 56259- 0501 Mar, Neuropathy G62.9 [facility] [id number] [place] [address] 57686- 5624 Mar, [facility] [id number] [place] [address] 40408- 7039 Mar, Breast cancer screening Z12.39 [facility] [address] 25523- 9686 Mar, Other dorsalgia M54.89 [facility] [id number] [place] [address] 93142- 6943 Feb, [facility] [address] 03714- 1285 30 Jan, 2016 Neuropathy G62.9 ; Type 2 diabetes mellitus with diabetic autonomic (poly)neuropathy E11.43 ; Uncomplicated asthma, unspecified asthma severity J45.909 and Encounter for immunization Z23 [facility] [id number] [place] [address] 36781- 3238 Jan, [facility] [id number] [place] [address] 66628- 0721 Jan, [facility] [id number] [place] [address] 55432- 6359 Dec, [facility] [id number] [place] [address] 21642- 5911 Dec, [facility] [id number] [place] [address] 00726- 3589 Nov, [facility] [id number] [place] [address] 51253- 8110 Nov, Back pain M54.9 [facility] [id number] [place] [address] 61434- 3768 Nov, Neuropathy G62.9 ; Mixed hyperlipidemia E78.2 ; Type 2 diabetes mellitus with diabetic autonomic (poly)neuropathy E11.43 and correction 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 Z79.4 [facility] [id number] [place] [address] 65122- 0582 Oct, [facility] [id number] [place] [address] 43569- 8036 Oct, Other dorsalgia M54.89 [facility] [id number] [place] [address] 84593- 3945 September, Primary insomnia F51.01 [facility] [id number] [place] [address] 31954- 6988 September, [facility] [id number] [place] [address] 55360- 1003 Aug, Other dorsalgia M54.89 [facility] [id number] [place] [address] 49484- 3607 Jul, [facility] [address] 72202- 5741 Jul, Other dorsalgia M54.89 [facility] [address] 81803- 5681 Jul, Diabetes E11.9 ; Back pain M54.9 ; Neuropathy G62.9 and Gastroparesis K31.84 [facility] [id number] [place] [address] 81744- 0082 Jun, [facility] [address] 63297- 5414 Jun, Other dorsalgia M54.89 [facility] [address] 39073- 9395 May, [facility] [address] 92938- 8295 May, Radicular leg pain M54.10 and Other dorsalgia M54.89 [facility] [address] 30354- 5389 Apr, [facility] [id number] [place] [address] 87484- 7595 Mar, [facility] [address] 17493- 2534 Mar, [facility] [id number] [place] [address] 56734- 7124 Mar, Radicular leg pain M54.10 [facility] [id number] [place] [address] 16009- 8489 Feb, [facility] [id number] [place] [address] 09632- 5762 Feb, [facility] [address] 19866- 9837 Feb, [facility] [id number] [place] [address] 43149- 0545 Jan, [facility] [id number] [place] [address] 706488- 2289 Jan, IBS (irritable bowel syndrome) 564.1 [facility] [id number] [place] [address] 40862- 4612 Jan, [facility] [id number] [place] [address] 16157- 9084 Jan, [facility] [id number] [place] [address] 01979- 2404 Jan, Diabetes mellitus without mention of complication, type II or unspecified type, not stated as uncontrolled 250.00 ; Gastroparesis 536.3 and Hypoacusis 389.9 [facility] [id number] [place] [address] 89593- 6370 Jan, [facility] [id number] [place] [address] 22341- 6220 Jan, [facility] [id number] [place] [address] 45998- 6336 Dec, [facility] [id number] [place] [address] 69065- 1786 Dec, [facility] [id number] [place] [address] 56635- 9892 Dec, [facility] [address] [place] [address] 92986- 2131 Dec, Back pain 724.5 and Gastroparesis 536.3 [facility] [id number] [place] [address] 45370- 3457 Nov, [facility] [id number] [place] [address] [id number] Nov, Dental examination V72.2 [facility] [address] [address]- 2340 Nov, [facility] [id number] [place] [address] 51041- 7107 Nov, [facility] [address] [address]- 1247 Nov, Depressive disorder, not elsewhere classified 311 and No condition on [place] II V71.09 [facility] [id number] [place] [address] 36643- 5905 Nov, Diabetes 250.00 and Symptomatic menopausal or female climacteric states 627.2 [facility] [id number] [place] [address] 09610- 3723 Oct, [facility] [id number] [place] [address] 42857- 9055 Oct, Lumbar strain 847.2 [facility] [id number] [place] [address] 18586- 3546 Oct, Gastroparesis 536.3 and Unspecified myalgia and myositis 729.1 [facility] [id number] [address]- 8282 Aug, [facility] [address] [address]- 3271 Aug, [facility] [address] [address]- 1345 Jul, [facility] [address] [address] Jul, [facility] [id number] [place] [id number] Jul, [facility] [id number] [address] Jul, [facility] [id number] [place] [id number] Jul, [facility] [place] [facility] [address] [id number] [place] [address] Jun, [facility] [place] [facility] [address] [id number] [place] [address] Jun, [facility] [place] [facility] [address] [id number] [place] [address] Jun, [facility] [place] [facility] [address] [id number] [place] [address] May, [facility] [place] [facility] [address] [id number] [place] [address] May, [facility] [place] [facility] [address] [id number] [place] [address] Mar, [facility] [place] [facility] [address] [id number] [place] [address] Mar, [facility] [place] [facility] [address] [id number] [place] [address] Mar, [facility] [place] [facility] [address] [id number] [place] [address] Mar, [facility] [place] [facility] [address] [id number] [place] [address] Mar, [facility] [place] [facility] [address] [id number] [address] Mar, [facility] [place] [facility] [address] [id number] [address] Feb, [facility] [place] [facility] [address] [id number] [place] [address] Feb, [facility] [place] [facility] [address] [id number] [place] [address] Nov, [facility] [place] [facility] [address] [id number] [place] [address]- [address] Nov, [facility] [place] [facility] [address] [id number] [place] [address] 11 Nov, 2012 [facility] [address] [id number] [place] [address] Oct, [facility] [address] [id number] [place] [address]- 1301 September, [facility] [address] [id number] [place] [address] Aug, [facility] [address] [id number] [place] [address] Aug, [facility] [address] [id number] [place] [address] Aug, [facility] [address] [id number] [place] [address] Aug, [facility] [address] [id number] [place] [address] Aug, [facility] [address] [id number] [place] [address] Aug, [facility] [address] [id number] [place] [address] Aug, [facility] [address] [facility] [id number] [place] [address] Aug, [facility] [place] [facility] [address] [id number] [place] [address] Jul, [facility] [place] [facility] [address] [id number] [place] [address] Jul, [facility] [place] [facility] [address] [id number] [place] [address] Jun, [facility] [place] [facility] [address] [id number] [place] [address] Jun, [facility] [place] [facility] [address] [id number] [place] [address] Jun, [facility] [id number] [address] Jun, [facility] [id number] [address] Jun, [facility] [id number] [place] [address] Jun, [facility] [id number] [place] [address]- [address] Jun, [facility] [id number] [place] [address] May, [facility] [id number] [place] [address]- [address] May, [facility] [id number] [place] [address] May, [facility] [id number] [place] [address] May, [facility] [id number] [place] [address]- [address] Mar, [facility] [id number] [place] [address] Mar, [facility] [id number] [address] Jan, IMMUNIZATIONS No Known Immunizations SOCIAL HISTORY Never Assessed REASON FOR VISIT B/L knee pain with the left one hurting more. Pt also has pain in her left lower lumber spine that radiates down her entire left leg. Pt just fell in [place] due to numbness in her feet. She would like an RX for b/l knee braces and a right hand brace. MAIKEL Iglesias PLAN OF CARE Activity Details Follow Up reg appt Reason: VITAL SIGNS Height 62 in 2016-12-06 Weight 93.2 lbs 2016-12-06 Temperature 98.6 degrees Fahrenheit 2016-12-06 Heart Rate 86 bpm 2016-12-06 Respiratory Rate 18 2016-12-06 BMI 17.04 kg/m2 2016-12-06 Blood pressure systolic 98 mmHg 2016-12-06 Blood pressure diastolic 68 mmHg 2016-12-06 MEDICATIONS Medication Instructions Dosage Frequency Start Date End Date Duration Status [employer] [facility] [place] 31G X 6 MM 1 THREE TIMES A DAY Active Vitamin B-12 1,000 mcg 1 Tablet by Oral route 1 time per day Jul, Active Cymbalta 30 mg Orally Once a day take 1 capsule (30 mg) by oral route once daily 24h Jul, Active Quad Cane - as directed 24h Apr, Active MiraLax - Orally Once a day as needed 1 packet mixed with 8 ounces of fluid Active Humalog KwikPen 100 Subcutaneous 2 times a day INJECT 8 units at 0800 and 2000 only if she has eating 12h Active Reglan 10 Orally 4 times a day 1 tablet 6h Active Acetaminophen 500 mg Orally 2 times a day 2 capsules 12h Active Linzess 290 MCG Orally Once a day 1 capsule 24h Active Multiple Vitamins-Iron - Orally Once a day 1 tablet 24h Active Albuterol Sulfate 90 mcg/actuation Orally 4 times a day inhale 2 puffs by Inhalation route 4 times per day as needed PRN 6h Jul, Active Ayden Contour Next Test - subcutaneously 3 times a day test blood sugar 8h Active Oxycodone-Acetaminophen 10-325 MG Orally 4 times a day 1 tablet as needed 6h Nov, Dec, 28 days Active Lyrica 300 MG Orally Twice a day 1 capsule 12h Active Cyclobenzaprine HCl 10 Orally Three times a day 1 tablet 8h Active Zofran ODT 8 MG Orally every 6 hrs 1 tablet 6h Active Escitalopram Oxalate 20 mg Orally Once a day 1 tablet 24h Active Lantus SoloStar 100 Subcutaneous at bedtime if she has eaten 30 U Active Zolpidem Tartrate 10 mg Orally Once a day 1 tablet 24h Active Xarelto 20 mg 1 Tablet by Oral route 1 time per day Jul, Active Comfort Lancets - as directed 8h Mar, Active Marinol 5 mg Orally Twice a day 1 capsule before lunch and supper 12h 14 days Active RESULTS No Results PROCEDURES Procedure Date Ordered Result Body Site [facility] VISIT ESTABLISHED PATIENT December 06, 2016 INSTRUCTIONS MEDICATIONS ADMINISTERED No Known Medications MEDICAL [...] vomitting-[facility] 03/05/17 Hospitalization History hospital stay at [facility] for stomach issues 2016
--- OUTSIDE RECORDS SUMMARY | 2018-01-27 20:17 | XMS REPORT ---
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 Role Phone HORACE HIGGINS Unavailable PROBLEMS Type Condition ICD9-CM Code NGT66-OW Code Onset Dates Condition Status SNOMED Code Problem History of colon polyps Z86.010 Active 282013793 Problem Asthma exacerbation J45.901 Active 536587069 Problem Primary insomnia F51.01 Active 7504058 Problem Tobacco dependency F17.200 Active 28043256 Problem Low TSH level R94.6 Active 485705050 Problem Annual physical exam Z00.00 Active 904849678 Problem Diabetic polyneuropathy associated with type 2 diabetes mellitus E11.42 Active 67991702 Problem Reactive depression F32.9 Active 10793088 Problem Migraine without aura and without status migrainosus, not intractable G43.009 Active 913156346 Problem PTSD (post-traumatic stress disorder) F43.10 Active 37627837 Problem Diabetes E11.9 Active 31413228 Problem Gastroparesis K31.84 Active 286239770 Problem Back pain M54.9 Active 585749190 Problem Neuropathy G62.9 Active 243191086 Problem Type 2 diabetes mellitus with diabetic autonomic (poly)neuropathy E11.43 Active 30150537 Problem Uncomplicated asthma, unspecified asthma severity J45.909 Active 964592592 Problem intermediate 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 Z79.4 Active 320829022 Problem Anorexia R63.0 Active 30175672 Problem Mixed hyperlipidemia E78.2 Active 149746774 Problem Weight loss R63.4 Active 102675546 ALLERGIES No Information ENCOUNTERS Encounter Location Date Diagnosis [facility] [id number] [address] Jan, [facility] [id number] [address] Dec, [facility] [address] [address] 27 Oct, 2017 PTSD (post-traumatic stress disorder) F43.10 [place] [address] [id number] Oct, [place] [address] [address]- [address] 19 Oct, 2017 PTSD (post-traumatic stress disorder) F43.10 and Tobacco dependency F17.200 [place] [address] 16026- 0039 18 Oct, 2017 [place] [address] 452863- 7987 Oct, Other dorsalgia M54.89 [place] [address] 75920- 6348 Oct, Anorexia R63.0 [place] [address] 09554- 8536 September, PTSD (post-traumatic stress disorder) F43.10 [place] [address] 39160- 0394 September, Low TSH level R94.6 [place] [address] 71709- 7423 September, Other dorsalgia M54.89 [place] [address] 59479- 2124 September, Annual physical exam Z00.00 and Migraine without aura and without status migrainosus, not intractable G43.009 [place] [address] 05309- 0269 September, Abnormal TSH R94.6 and Dysfunction of left eustachian tube H69.82 [place] [address] 85211- 6116 Aug, [place] [address] [place] [address] 30 Aug, 2017 Anorexia R63.0 [facility] [id number] [place] [id number] Aug, Dental examination Z01.20 and Xerostomia K11.7 [facility] [id number] [place] [address] 94687- 4988 Aug, Neuropathy G62.9 [facility] [address] 30564- 0365 Aug, [facility] [id number] [place] [address] 28713- 0767 Aug, Other dorsalgia M54.89 [facility] [id number] [place] [address] 85030- 7006 Aug, Type 2 diabetes mellitus with diabetic autonomic (poly) neuropathy E11.43 ; Diabetic polyneuropathy associated with type 2 diabetes mellitus E11.42 ; Bronchitis J40 ; Gastroparesis K31.84 and Reactive depression F32.9 [facility] [id number] [place] [address] 52803- 1443 Aug, PTSD (post-traumatic stress disorder) F43.10 [facility] [id number] [place] [address] 15520- 0690 Aug, Other dorsalgia M54.89 and Anorexia R63.0 [facility] [id number] [place] [address] 34712- 9942 Jul, [facility] [id number] [place] [address] 21730- 2541 Jul, Other dorsalgia M54.89 [facility] [address] 93803- 8919 Jul, [facility] [id number] [place] [address] 78554- 0185 Jul, [facility] [address] [place] [address]- 2546 Jul, PTSD (post-traumatic stress disorder) F43.10 [facility] [id number] [place] [address] 45365- 7256 Jul, [facility] [id number] [place] [address] 98198 2546 Jul, [facility] [id number] [place] [address] 51031- 5826 Jul, [facility] [id number] [place] [address] 53876 2546 Jul, Anorexia R63.0 [facility] [address] 26166- 6386 Jun, [facility] [id number] [place] [address] 04039- 4356 Jun, Vaginal discharge N89.8 ; Visit for gynecologic examination Z01.419 and Pelvic pressure in female R10.2 [facility] [id number] [place] [address] 12432- 9516 Jun, [facility] [id number] [place] [address] 97703- 9856 Jun, Other dorsalgia M54.89 [facility] [id number] [place] [address] 00202- 0776 16 Jun, 2017 [facility] [id number] [place] [address] 85853 2546 Jun, [facility] [id number] [place] [address] 98093 2546 Jun, [facility] [id number] [place] [address] 42312 2546 May, Back pain M54.9 [facility] [id number] [place] [address] 75693 2546 May, Anorexia R63.0 [facility] [id number] [place] [address] 10320- 5423 May, Other dorsalgia M54.89 [facility] [address] 55982- 5043 May, [facility] [address] 11768- 9461 May, Bronchitis J40 [place] [address] 57802- 5755 May, Type 2 diabetes mellitus with diabetic autonomic (poly) neuropathy E11.43 ; intermediate 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 Z79.4 ; Back pain M54.9 and Neuropathy G62.9 [place] [address] 67422- 3856 May, Left breast mass N63.20 [place] [address] 98503- 1420 May, [facility] [address] 20491- 0498 Apr, Other dorsalgia M54.89 [facility] [address] 76627- 5956 Apr, Anorexia R63.0 [place] [address] 06287- 0853 Apr, Anorexia R63.0 [facility] [address] 59818- 1280 Apr, Mass of left breast N63.20 [facility] [id number] [place] [address] 88982- 6796 Apr, [place] [address] 73722- 7382 Apr, [facility] [id number] [place] [address] 29895- 1638 Apr, Diarrhea of presumed infectious origin [address] [place] [address] 50534- 8411 Apr, Encounter for immunization Z23 [facility] [id number] [place] [address] 72805- 1256 Apr, [facility] [id number] [place] [address] 97562- 7483 Mar, Other dorsalgia M54.89 [facility] [id number] [place] [address] 07834- 8517 Mar, [facility] [id number] [place] [address] 49676- 9826 Mar, [facility] [id number] [place] [address] 95877- 5421 Mar, Anorexia R63.0 [facility] [id number] [place] [address] 16551- 5583 Mar, [facility] [id number] [place] [address] 65869- 6406 Mar, Other dorsalgia M54.89 [facility] [id number] [place] [address] 02875- 3311 Mar, [facility] [id number] [place] [address] 13946- 6087 Mar, Encounter for immunization Z23 [facility] [id number] [place] [address] 90793- 9798 Feb, Anorexia R63.0 [facility] [id number] [place] [address] 71595- 0387 Feb, Diabetes E11.9 [facility] [id number] [place] [address] 29830- 9455 Feb, Back pain M54.9 and Diabetes E11.9 [facility] [id number] [place] [address] 35323- 8273 Feb, Diabetes E11.9 [facility] [address] 14048- 8557 Feb, Neuropathy G62.9 [facility] [address] 09648- 5101 Feb, Encounter for immunization Z23 ; Epigastric pain R10.13 ; Weight loss, abnormal R63.4 and Neuropathy G62.9 [facility] [address] [id number] Feb, [facility] [address] 78797- 1189 Feb, [place] [address] 54675- 0093 Feb, Intractable vomiting with nausea, unspecified vomiting type R11.2 [facility] [address] 19422 -7478 Feb, Chronic nausea R11.0 [facility] [address] 55427- 5780 Feb, Other dorsalgia M54.89 [facility] [address] 99726- 6635 Jan, [facility] [address] 17792- 9311 Jan, [facility] [address] 84128- 9573 Jan, [facility] [address] 62496- 8486 Jan, [facility] [address] 28910- 1973 Jan, Asthma exacerbation J45.901 ; Bronchitis J40 and Neuropathy G62.9 [facility] [address] 56965- 5849 Jan, Anorexia R63.0 [facility] [address] [place] [address] 26492- 2456 Jan, Other dorsalgia M54.89 [facility] [id number] [place] [address] 89665- 0146 Dec, [facility] [id number] [place] [address] 87359- 5146 Dec, [facility] [id number] [place] [address] 49070- 7356 Dec, Anorexia R63.0 [facility] [id number] [place] [address] 48763- 9422 Dec, Primary insomnia F51.01 [facility] [id number] [place] [address] 76700- 5980 Dec, Other dorsalgia M54.89 [facility] [id number] [place] [address] 93055- 2993 Dec, [facility] [id number] [place] [address] 31783- 6197 Nov, [facility] [id number] [place] [address] 38038- 5654 Nov, [facility] [id number] [place] [address] 47675- 3753 Nov, [facility] [id number] [place] [address] 25438- 4084 Nov, History of colon polyps Z86.010 [facility] [id number] [place] [address] 42000- 9593 Nov, Weight loss R63.4 ; Nausea and vomiting, intractability of vomiting not specified, unspecified vomiting type R11.2 and Abnormal LFTs R79.89 [facility] [id number] [place] [address] 99182- 6996 Nov, [facility] [id number] [place] [address] 77208- 0333 14 Nov, 2016 Neuropathy G62.9 and Pain in right knee M25.561 [facility] [id number] [place] [address] 60618- 8750 12 Nov, 2016 Back pain M54.9 [facility] [id number] [place] [address] 50289- 3191 10 Nov, 2016 [facility] [address] 59163- 7951 08 Nov, 2016 Bronchitis J40 [facility] [id number] [place] [address] 52424- 2979 03 Nov, 2016 Weight loss R63.4 [facility] [id number] [place] [address] 61538- 7976 16 Oct, 2016 Back pain M54.9 [facility] [id number] [place] [address] 90039- 8799 Oct, [facility] [id number] [place] [address] 37352- 3994 14 Oct, 2016 Back pain M54.9 [facility] [id number] [place] [address] 07268- 9398 13 Oct, 2016 Type 2 diabetes mellitus without complications E11.9 and Bronchitis J40 [facility] [id number] [place] [address] 99836- 3550 Oct, [facility] [id number] [place] [address] 88816- 9320 Oct, [facility] [id number] [place] [address] 39195- 6539 September, Gastroparesis K31.84 ; Type 2 diabetes mellitus with diabetic autonomic (poly)neuropathy E11.43 and Neuropathy G62.9 [facility] [id number] [place] [address] 18171- 0051 September, Other dorsalgia M54.89 [facility] [id number] [place] [address] 49151- 1440 September, [facility] [address] 43924- 5089 September, [facility] [address] 62360- 1168 Aug, Gastroparesis K31.84 and Radicular leg pain M54.10 [facility] [address] 45784- 1354 Aug, Anorexia R63.0 [facility] [address] 36680- 3116 Aug, Bronchitis J40 [facility] [address] 67508- 4432 Aug, Back pain M54.9 [place] [address] 26028- 8170 Aug, Routine gynecological examination Z01.419 ; Routine screening for STI (sexually transmitted infection) Z11.3 and Yeast infection of the vagina B37.3 [facility] [address] 50865- 4295 Jul, Other dorsalgia M54.89 [facility] [address] 83634- 8616 Jul, Diabetes E11.9 and Gastroparesis K31.84 [facility] [id number] [place] [address] 01342- 1303 Jun, [facility] [id number] [place] [address] 32253- 1886 Jun, Back pain M54.9 [facility] [address] 28553- 3210 14 Jun, 2016 Neuropathy G62.9 [facility] [id number] [place] [address] [id number] 02 Jun, 2016 Encounter for dental examination Z01.20 [facility] [id number] [place] [address] 81287- 6687 Jun, Gastroparesis 536.3 and Anorexia R63.0 [facility] [address] 23733 2546 27 May, 2016 Other dorsalgia M54.89 [facility] [address] 21955- 6638 May, Periumbilical abdominal pain R10.33 ; Weight loss R63.4 and Gastroparesis K31.84 [facility] [address] 43040- 0681 May, Back pain M54.9 [facility] [address] 14707- 6276 Apr, Anorexia R63.0 [facility] [address] 57611 2546 Apr, Anorexia R63.0 [facility] [address] 42478 2548 Apr, Back pain M54.9 [facility] [address] 84538 2546 Apr, Back pain M54.9 [facility] [address] 21215 2546 Apr, [facility] [address] 23054 2546 Apr, Bronchitis J40 and Neuropathy G62.9 [facility] [address] 67620 2546 Apr, Neuropathy G62.9 [facility] [address] 80611 2546 Apr, [facility] [address] 85548- 8121 Apr, Back pain M54.9 [facility] [id number] [place] [address] 05858- 9083 Mar, Type 2 diabetes mellitus with diabetic autonomic (poly) neuropathy E11.43 [facility] [id number] [place] [address] 18377- 3880 Mar, Type 2 diabetes mellitus without complications E11.9 [facility] [id number] [place] [address] 74157- 9698 Mar, Neuropathy G62.9 [facility] [id number] [place] [address] 01401- 6446 Mar, [place] [id number] [place] [address] 46177- 7343 Mar, Breast cancer screening Z12.39 [place] [id number] [place] [address] 21353- 7558 Mar, Other dorsalgia M54.89 [facility] [id number] [place] [address] 00166- 7891 Feb, [facility] [id number] [place] [address] 48468- 8075 Jan, Neuropathy G62.9 ; Type 2 diabetes mellitus with diabetic autonomic (poly)neuropathy E11.43 ; Uncomplicated asthma, unspecified asthma severity J45.909 and Encounter for immunization Z23 [facility] [id number] [place] [address] 72374- 8504 Jan, [facility] [id number] [place] [address] 77136- 2187 Jan, [facility] [id number] [place] [address] 03772- 8414 Dec, [facility] [id number] [place] [address] 64102- 4124 Dec, [facility] [id number] [place] [address] 29456- 6940 Nov, [facility] [id number] [place] [address] 17856- 6677 Nov, Back pain M54.9 [facility] [id number] [place] [address] 62106- 8660 Nov, Neuropathy G62.9 ; Mixed hyperlipidemia E78.2 ; Type 2 diabetes mellitus with diabetic autonomic (poly)neuropathy E11.43 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 [facility] [address] 40011- 9156 Oct, [facility] [address] 21246- 7214 Oct, Other dorsalgia M54.89 [facility] [address] 31708- 3840 September, Primary insomnia F51.01 [facility] [address] 20699- 0617 September, [facility] [address] 52585- 3231 Aug, Other dorsalgia M54.89 [facility] [id number] [place] [address] 43826- 6163 Jul, [facility] [id number] [place] [address] 62681- 7212 Jul, Other dorsalgia M54.89 [facility] [id number] [place] [address] 77553- 0505 Jul, Diabetes E11.9 ; Back pain M54.9 ; Neuropathy G62.9 and Gastroparesis K31.84 [facility] [id number] [place] [address] 98290- 3413 Jun, [facility] [id number] [place] [address] 48233- 7078 Jun, Other dorsalgia M54.89 [facility] [id number] [place] [address] 53722- 3226 May, [facility] [id number] [place] [address] 11090- 5791 May, Radicular leg pain M54.10 and Other dorsalgia M54.89 [facility] [id number] [place] [address] 57068- 9324 Apr, [facility] [id number] [place] [address] 04786- 7852 Mar, [facility] [id number] [place] [address] 23697- 9436 Mar, [facility] [id number] [place] [address] 08793- 0714 Mar, Radicular leg pain M54.10 [facility] [id number] [place] [address] 50716- 6644 Feb, [facility] [id number] [place] [address] 44859- 8916 Feb, [facility] [id number] [place] [address] 01058- 0717 Feb, [facility] [id number] [place] [address] 16970- 4310 Jan, [facility] [id number] [place] [address] 13501- 6476 Jan, IBS (irritable bowel syndrome) 564.1 [facility] [id number] [place] [address] [phone] Jan, [facility] [id number] [place] [address] [phone]- [phone] Jan, [facility] [id number] [place] [address] [phone]- [phone] Jan, Diabetes mellitus without mention of complication, type II or unspecified type, not stated as uncontrolled 250.00 ; Gastroparesis 536.3 and Hypoacusis 389.9 [facility] [id number] [place] [address] [phone] Jan, [facility] [id number] [place] [address] [phone] Jan, [facility] [id number] [place] [address] [phone] Dec, [facility] [id number] [place] [address] [phone]- [phone] Dec, [facility] [id number] [place] [address] [phone]- [phone] Dec, [facility] [id number] [place] [address] [phone]- [phone] Dec, Back pain 724.5 and Gastroparesis 536.3 [facility] [id number] [place] [address] [phone] Nov, [facility] [id number] [place] [address] [id number] Nov, Dental examination V72.2 [facility] [id number] [place] [address] [phone]- [phone] Nov, [facility] [id number] [place] [address] [phone]- [phone] Nov, [facility] [id number] [place] [address] [phone]- [phone] Nov, Depressive disorder, not elsewhere classified 311 and No condition on [place] II V71.09 [facility] [id number] [place] [address] [phone]- [phone] Nov, Diabetes 250.00 and Symptomatic menopausal or female climacteric states 627.2 [facility] [id number] [place] [address] [phone]- [phone] Oct, [facility] [address] [phone] 15 Oct, 2014 Lumbar strain 847.2 [facility] [address] [address]- 4696 Oct, Gastroparesis 536.3 and Unspecified myalgia and myositis 729.1 [facility] [address] [facility] [id number] [address] 14 Aug, 2014 [facility] [address] [facility] [id number], [place] [address] Aug, [facility] [address] [facility] [id number], [place] [address] Jul, [facility] [address] [id number] [address] Jul, [facility] [id number] [address] Jul, [facility] [address] [id number], [place] [address] Jul, [facility] [id number], [place] [address] Jul, [facility] [id number], [place] [address] Jun, [facility] [id number], [place] [address] Jun, [facility] [address] [facility] [id number], [place] [address] Jun, [facility] [address] [facility] [id number], [place] [address] May, [facility] [address] [facility] [id number] [id number] [address] May, [facility] [address] [id number], [place] [address] Mar, [facility] [place] [facility] [address] [id number] [place] [address] Mar, [facility] [place] [facility] [address] [id number] [place] [address] Mar, [facility] [place] [facility] [address] [id number] [place] [address]35 Mar, [facility] [place] [facility] [address] [id number] [place] [address]- [address]148 Mar, [facility] [place] [facility] [address] [id number] [place] [address]- [address]24 Mar, [facility] [place] [facility] [address] [id number] [place] [address] Feb, [facility] [place] [facility] [address] [id number] [place] [address] Feb, [facility] [place] [facility] [address] [id number] [place] [address]78 Nov, [facility] [place] [facility] [address] [id number] [place] [address]01 Nov, [facility] [place] [facility] [address] [id number] [place] [address] Nov, [facility] [place] [facility] [address] [id number] [place] [address]783 Oct, [facility] [place] [facility] [address] [id number], [place] [address] September, [facility] [place] [facility] [address] [id number] [place] [address] Aug, [facility] [place] [facility] [address] [id number] [place] [address] 15 Aug, 2012 [facility] [place] [facility] [address] [id number] [place] [address]39 Aug, [facility] [place] [facility] [address] [id number], [place] [address] Aug, [facility] [address] [id number] [place] [address]95 Aug, [facility] [place] [facility] [address] [id number], [place] [address] Aug, [facility] [place] [facility] [address] [facility] [id number] [place] [address] Aug, [facility] [place] [facility] [address] [id number] [place] [address]15 Aug, [facility] [address] [id number] [place] [address]61 Jul, [facility] [place] [facility] [address] [id number] [place] [address] Jul, [facility] [address] [id number] [place] [address] Jun, [facility] [place] [facility] [address] [facility] [id number] [place] [address]- 4765 Jun, [facility] [address] [facility] [id number] [place] [address]- 9253 Jun, [facility] [place] [facility] [address] [facility] [id number] [place] [address]- [address]4 Jun, [facility] [place] [facility] [address] [id number] [place] [address] Jun, [facility] [place] [facility] [address] [facility] [id number], [place] [address] Jun, [facility] [place] [facility] [address] [id number], [place] [address] Jun, [facility] [place] [facility] [address] [facility] [id number], [place] [address] May, [facility] [place] [facility] [address] [id number], [place] [address] May, [facility] [address] [facility] [id number], [place] [address] May, [facility] [address] [facility] [id number], [place] [address] May, [facility] [address] [facility] [id number], [place] [address]66 Mar, [facility] [address] [facility] [id number], [place] [address] Mar, [facility] [address] [facility] [id number], [place] [address] Jan, IMMUNIZATIONS No Known Immunizations SOCIAL HISTORY Never Assessed REASON FOR VISIT Refill request PLAN OF CARE VITAL SIGNS MEDICATIONS Medication Instructions Dosage Frequency Start Date End Date Duration Status Promethazine HCl 25 MG Orally every 6 hours 1 tablet 6h Aug, 30 days Active RESULTS No Results PROCEDURES [...] High blood sugar 2016 Hospitalization History DKA, vomitting-[facility] 03/05/17 Hospitalization History hospital stay at [facility] for stomach issues 2016
--- OUTSIDE RECORDS SUMMARY | 2018-01-27 20:17 | XMS REPORT ---
Author Author HORACE HIGGINS [facility] Address [address] [place] [address] Care Team Providers Care Hull Builder Name Role Phone HORACE HIGGINS Unavailable PROBLEMS Type Condition ICD9-CM Code ZOL11-JI Code Onset Dates Condition Status SNOMED Code Problem Weight loss R63.4 Active 691766751 Problem Primary insomnia F51.01 Active 9107224 Problem History of colon polyps Z86.010 Active 714901389 Problem Annual physical exam Z00.00 Active 455894367 Problem Migraine without aura and without status migrainosus, not intractable G43.009 Active 060413787 Problem Reactive depression F32.9 Active 90903407 Problem Asthma exacerbation J45.901 Active 318386621 Problem PTSD (post-traumatic stress disorder) F43.10 Active 46339483 Problem Diabetic polyneuropathy associated with type 2 diabetes mellitus E11.42 Active 95177725 Problem Neuropathy G62.9 Active 601853381 Problem Diabetes E11.9 Active 16186032 Problem Low TSH level R94.6 Active 958246970 Problem Back pain M54.9 Active 168523654 Problem Mixed hyperlipidemia E78.2 Active 167526065 Problem Type 2 diabetes mellitus with diabetic autonomic (poly)neuropathy E11.43 Active 79181749 Problem Gastroparesis K31.84 Active 584232057 Problem Uncomplicated asthma, unspecified asthma severity J45.909 Active 986600395 Problem 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 Active 903562340 Problem Anorexia R63.0 Active 45406008 ALLERGIES No Information ENCOUNTERS Encounter Location Date Diagnosis [facility] [id number] [address] Oct, [facility] [id number] [address] Oct, [facility] [id number] [place] [address] 31014- 8642 Oct, Anorexia R63.0 [place] [id number] [place] [address] 185335- 6488 September, PTSD (post-traumatic stress disorder) F43.10 [place] [address] 79386- 9066 September, Low TSH level R94.6 [facility] [facility] [address] 07419- 5215 September, Other dorsalgia M54.89 [place] [address] 42222- 6929 September, Annual physical exam Z00.00 and Migraine without aura and without status migrainosus, not intractable G43.009 [place] [address] 44498- 6325 September, Abnormal TSH R94.6 and Dysfunction of left eustachian tube H69.82 [facility] [id number] [place] [address] 50139- 9951 Aug, [facility] [address] 15629- 4241 Aug, Anorexia R63.0 [facility] [address] [id number] Aug, Dental examination Z01.20 and Xerostomia K11.7 [facility] [id number] [place] [address] 28209- 2391 Aug, Neuropathy G62.9 [place] [address] 10412- 7682 Aug, [place] [address]68095- 1965 Aug, Other dorsalgia M54.89 [place] [address] 05092- 8776 Aug, Type 2 diabetes mellitus with diabetic autonomic (poly) neuropathy E11.43 ; Diabetic polyneuropathy associated with type 2 diabetes mellitus E11.42 ; Bronchitis J40 ; Gastroparesis K31.84 and Reactive depression F32.9 [facility] [address] 8[address]38 2546 Aug, PTSD (post-traumatic stress disorder) F43.10 [facility] [address] 92104 2546 Aug, Other dorsalgia M54.89 and Anorexia R63.0 [facility] [address] 69561 2546 Jul, [facility] [address] 63675- 1166 Jul, Other dorsalgia M54.89 [facility] [address] 49283- 9326 Jul, [facility] [address] 52851 2546 Jul, [facility] [address] 61186- 4928 Jul, PTSD (post-traumatic stress disorder) F43.10 [facility] [id number] [place] [address] 12563- 7876 Jul, [facility] [address] 22238 2546 Jul, [facility] [id number] [place] [address] 25419 2546 Jul, [facility] [address] 41986 2546 Jul, Anorexia R63.0 [facility] [id number] [place] [address] 03840- 3116 Jun, [facility] [address] 13568762- 2546 Jun, Vaginal discharge N89.8 ; Visit for gynecologic examination Z01.419 and Pelvic pressure in female R10.2 [facility] [id number] [place] [address] 93746- 1476 Jun, [facility] [id number] [place] [address] 83895- 0327 Jun, Other dorsalgia M54.89 [facility] [address] 41941- 8443 Jun, [facility] [address] 77409- 2856 Jun, [facility] [address] 69826- 7793 Jun, [facility] [address] 61068- 6823 May, Back pain M54.9 [facility] [id number] [place] [address] 36777- 0215 May, Anorexia R63.0 [facility] [address] 34059- 5447 May, Other dorsalgia M54.89 [facility] [id number] [place] [address] 27390- 3554 May, [facility] [id number] [place] [address] 85093- 2365 May, Bronchitis J40 [facility] [id number] [place] [address] 95890- 3247 May, Type 2 diabetes mellitus with diabetic autonomic (poly) neuropathy E11.43 ; custodial 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 Z79.4 ; Back pain M54.9 and Neuropathy G62.9 [facility] [id number] [place] [address] 23511- 4373 May, Left breast mass N63.20 [facility] [id number] [place] [address] 12504- 0749 May, [facility] [id number] [place] [address] 95681- 3246 Apr, Other dorsalgia M54.89 [facility] [id number] [place] [address] 19390 2546 Apr, Anorexia R63.0 [facility] [id number] [place] [address] 09832 2546 Apr, Anorexia R63.0 [facility] [id number] [place] [address] 33129- 9923 Apr, Mass of left breast N63.20 [facility] [id number] [place] [address] 11011- 5896 Apr, [facility] [address] 85486- 2566 Apr, [facility] [id number] [place] [address] 95271- 3680 Apr, Diarrhea of presumed infectious origin A09 [facility] [id number] [place] [address] 62006- 4105 Apr, Encounter for immunization Z23 [facility] [id number] [place] [address] 30566- 3031 Apr, [facility] [id number] [place] [address] 66746- 2883 Mar, Other dorsalgia M54.89 [facility] [id number] [place] [address] 56898 2546 Mar, [facility] [id number] [place] [address] 83514 2544 Mar, [facility] [id number] [place] [address] 77224- 5746 Mar, Anorexia R63.0 [facility] [id number] [place] [address] 12561- 5676 Mar, [facility] [address] 45950- 4517 Mar, Other dorsalgia M54.89 [facility] [address] 32611- 0045 Mar, [facility] [address] 66399- 6517 Mar, Encounter for immunization Z23 [facility] [address] 95138- 8220 Feb, Anorexia R63.0 [facility] [address] 03480- 9543 Feb, Diabetes E11.9 [facility] [address] 80570- 8538 Feb, Back pain M54.9 and Diabetes E11.9 [facility] [address] 42837- 9925 Feb, Diabetes E11.9 [facility] [address] 80196- 7219 Feb, Neuropathy G62.9 [facility] [id number] [place] [address] 59758- 8625 Feb, Encounter for immunization Z23 ; Epigastric pain R10.13 ; Weight loss, abnormal R63.4 and Neuropathy G62.9 [facility] [id number] [place] [address] [id number] Feb, [facility] [address] 27965- 7916 Feb, [facility] [id number] [place] [address] 04215- 2487 Feb, Intractable vomiting with nausea, unspecified vomiting type R11.2 [facility] [id number] [place] [address] 87761 -4176 Feb, Chronic nausea R11.0 [facility] [address] 68385- 7030 Feb, Other dorsalgia M54.89 [facility] [id number] [place] [address] 88725- 3396 Jan, [facility] [address] 73245- 6956 Jan, [facility] [address] 02144- 3823 Jan, [facility] [address] 35169- 8021 Jan, [facility] [address] 10689- 9327 Jan, Asthma exacerbation J45.901 ; Bronchitis J40 and Neuropathy G62.9 [facility] [id number] [place] [address] 40021- 2711 Jan, Anorexia R63.0 [facility] [address] 37728- 7211 Jan, Other dorsalgia M54.89 [facility] [id number] [place] [address] 94024- 3251 Dec, [facility] [id number] [place] [address] 44736- 0965 Dec, [facility] [id number] [place] [address] 37860- 3640 Dec, Anorexia R63.0 [facility] [id number] [place] [address] 83712- 9536 Dec, Primary insomnia F51.01 [facility] [id number] [place] [address] 26316- 9091 Dec, Other dorsalgia M54.89 [facility] [id number], [place] [address]- 0843 Dec, [facility] [id number] [place] [address] 06798- 2685 Nov, [facility] [id number] [place] [address] 69193- 2466 Nov, [facility] [id number] [place] [address] 09725- 5493 Nov, [facility] [id number] [place] [address] 86788- 4864 Nov, History of colon polyps Z86.010 [facility] [id number] [place] [address] 44235- 0164 Nov, Weight loss R63.4 ; Nausea and vomiting, intractability of vomiting not specified, unspecified vomiting type R11.2 and Abnormal LFTs R79.89 [facility] [id number] [place] [address] 68736- 6333 Nov, [facility] [id number] [place] [address] 29888- 5191 Nov, Neuropathy G62.9 and Pain in right knee M25.561 [facility] [id number] [place] [address] 27306- 7257 Nov, Back pain M54.9 [facility] [id number] [place] [address] 70803- 7333 Nov, [facility] [id number] [place] [address] 41424- 4577 Nov, Bronchitis J40 [facility] [id number] [place] [address] 02958- 9566 Nov, Weight loss R63.4 [facility] [id number] [place] [address] 67642- 6241 Oct, Back pain M54.9 [facility] [address], [place] [address]- 6878 16 Oct, 2016 [facility] [id number] [place] [address] 54241- 4831 14 Oct, 2016 Back pain M54.9 [facility] [id number] [place] [address] 46780- 5069 13 Oct, 2016 Type 2 diabetes mellitus without complications E11.9 and Bronchitis J40 [facility] [id number] [place] [address] 22540- 8840 Oct, [facility] [id number] [place] [address] 27399- 0567 Oct, [facility] [id number] [place] [address] 75772- 1585 September, Gastroparesis K31.84 ; Type 2 diabetes mellitus with diabetic autonomic (poly)neuropathy E11.43 and Neuropathy G62.9 [facility] [id number] [place] [address] 18424- 3559 September, Other dorsalgia M54.89 [facility] [id number] [place] [address] 79378- 3718 September, [facility] [id number] [place] [address] 28437- 0346 September, [facility] [id number] [place] [address] 29076- 4325 Aug, Gastroparesis K31.84 and Radicular leg pain M54.10 [facility] [id number] [place] [address] 19521- 3433 Aug, Anorexia R63.0 [facility] [id number] [place] [address] 14955- 3757 Aug, Bronchitis J40 [facility] [id number] [place] [address] 84020- 9284 Aug, Back pain M54.9 [facility] [id number] [place] [address] 28333- 6970 Aug, Routine gynecological examination Z01.419 ; Routine screening for STI (sexually transmitted infection) Z11.3 and Yeast infection of the vagina B37.3 [facility] [id number] [place] [address] 39582- 0525 Jul, Other dorsalgia M54.89 [place] [address] 24915- 5240 Jul, Diabetes E11.9 and Gastroparesis K31.84 [place] [address] 74446- 3711 Jun, [place] [id number] [place] [address] 93390- 3062 Jun, Back pain M54.9 [place] [address] 05952- 0194 14 Jun, 2016 Neuropathy G62.9 [facility] [address] [address]991301 02 Jun, 2016 Encounter for dental examination Z01.20 [place] [id number] [place] [address] 88770- 4600 Jun, Gastroparesis 536.3 and Anorexia R63.0 [facility] [id number] [place] [address] 19328- 2870 May, Other dorsalgia M54.89 [place] [id number] [place] [address] 04681- 0643 May, Periumbilical abdominal pain R10.33 ; Weight loss R63.4 and Gastroparesis K31.84 [place] [id number] [place] [address] 58180- 3865 May, Back pain M54.9 [place] [id number] [place] [address] 25538- 1000 Apr, Anorexia R63.0 [facility] [id number] [place] [address] 01301 2546 Apr, Anorexia R63.0 [facility] [id number] [place] [address] 95569 2546 16 Apr, 2016 Back pain M54.9 [facility] [id number] [place] [address] 08002 2546 15 Apr, 2016 Back pain M54.9 [facility] [id number] [place] [address] 55317 2546 Apr, [facility] [id number] [place] [address] 18056 2546 Apr, Bronchitis J40 and Neuropathy G62.9 [facility] [id number] [place] [address] 70356 2546 Apr, Neuropathy G62.9 [facility] [id number] [place] [address] 02962 2546 05 Apr, 2016 [facility] [id number] [place] [address] 78421 2543 Apr, Back pain M54.9 [facility] [id number] [place] [address] 17526 2546 Mar, Type 2 diabetes mellitus with diabetic autonomic (poly) neuropathy E11.43 [facility] [id number] [place] [address] 26980 2546 Mar, Type 2 diabetes mellitus without complications E11.9 [facility] [id number] [place] [address] 31623- 3406 Mar, Neuropathy G62.9 [facility] [id number] [place] [address] 74902 2546 Mar, [facility] [id number] [place] [address] 67890- 6206 Mar, Breast cancer screening Z12.39 [facility] [id number] [place] [address] 12723- 4538 Mar, Other dorsalgia M54.89 [facility] [address] 12230- 5894 Feb, [facility] [address] 95251- 9752 30 Jan, 2016 Neuropathy G62.9 ; Type 2 diabetes mellitus with diabetic autonomic (poly)neuropathy E11.43 ; Uncomplicated asthma, unspecified asthma severity J45.909 and Encounter for immunization Z23 [place] [address] 63154- 1404 Jan, [place] [address] 66979- 8882 Jan, [place] [address] 88041- 5816 Dec, [facility] [address] 40324- 1283 Dec, [place] [address] 13484- 4435 Nov, [place] [address] 41990- 8678 Nov, Back pain M54.9 [place] [address] 13662- 6381 Nov, Neuropathy G62.9 ; Mixed hyperlipidemia E78.2 ; Type 2 diabetes mellitus with diabetic autonomic (poly)neuropathy E11.43 and custodial 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 Z79.4 [place] [address] 00909- 8444 Oct, [place] [address] 59675- 2493 Oct, Other dorsalgia M54.89 [facility] [address] 39185- 7832 September, Primary insomnia F51.01 [facility] [id number] [place] [address] 15251- 6328 September, [facility] [id number] [place] [address] 11165- 7342 Aug, Other dorsalgia M54.89 [facility] [id number] [place] [address] 63365- 6482 Jul, [facility] [id number] [place] [address] 62078- 8079 Jul, Other dorsalgia M54.89 [facility] [id number] [place] [address] 88719- 5957 Jul, Diabetes E11.9 ; Back pain M54.9 ; Neuropathy G62.9 and Gastroparesis K31.84 [facility] [id number] [place] [address] 78549- 7780 Jun, [facility] [id number] [place] [address] 67027- 8088 Jun, Other dorsalgia M54.89 [facility] [id number] [place] [address] 20514- 0753 May, [facility] [id number] [place] [address] 55714- 3018 May, Radicular leg pain M54.10 and Other dorsalgia M54.89 [facility] [id number] [place] [address] 34493- 5815 Apr, [facility] [id number] [place] [address] 01217- 4425 Mar, [facility] [id number] [place] [address] 18875- 2998 Mar, [facility] [id number] [place] [address] 61816- 4514 Mar, Radicular leg pain M54.10 [facility] [id number] [address]- 0237 Feb, [facility] [id number] 1556 Feb, [facility] [id number], [place] [address]- 7826 Feb, [facility] [id number] [place] [address] 234769- 0053 Jan, [facility] [id number] [place] [address] 09629- 3535 Jan, IBS (irritable bowel syndrome) 564.1 [facility] [id number] [place] [address] 78651- 5318 Jan, [facility] [id number] [place] [address] 08685- 5510 Jan, [facility] [id number] [address]- 7072 Jan, Diabetes mellitus without mention of complication, type II or unspecified type, not stated as uncontrolled 250.00 ; Gastroparesis 536.3 and Hypoacusis 389.9 [facility] [id number] [place] [address]- 7460 Jan, [facility] [id number] [address]- 6741 Jan, [facility] [id number], [place] [address] Dec, [facility] [id number] [place] [address] Dec, [facility] [id number], [place] [address] Dec, [facility] [id number] [place] [address] Dec, Back pain 724.5 and Gastroparesis 536.3 [facility] [id number], [place] [address] Nov, [facility] [id number] [id number] Nov, Dental examination V72.2 [facility] [id number] [address] Nov, [facility] [id number] [place] [address] Nov, [facility] [id number] [place] [address] Nov, Depressive disorder, not elsewhere classified 311 and No condition on [place] II V71.09 [facility] [id number] [place] [address] Nov, Diabetes 250.00 and Symptomatic menopausal or female climacteric states 627.2 [facility] [id number] [address] Oct, [facility] [id number], [place] [address] Oct, Lumbar strain 847.2 [facility] [id number] [address] Oct, Gastroparesis 536.3 and Unspecified myalgia and myositis 729.1 [facility] [id number] [address] Aug, [facility] [id number] [address] Aug, [facility] [id number] [place] [address] Jul, [facility] [id number], [place] [address] Jul, [facility] [place] [facility] [address] [id number] [place] [address] Jul, [facility] [place] [facility] [address] [id number] [place] [address] Jul, [facility] [place] [facility] [address] [id number] [place] [address] Jul, [facility] [place] [facility] [address] [id number] [place] [address] Jun, [facility] [place] [facility] [address] [id number] [place] [address] Jun, [facility] [place] [facility] [address] [id number] [place] [address] Jun, [facility] [place] [facility] [address] [id number] [place] [address] May, [facility] [place] [facility] [address] [id number] [place] [address] May, [facility] [place] [facility] [address] [id number] [place] [address] Mar, [facility] [place] [facility] [address] [id number] [place] [address] Mar, [facility] [place] [facility] [address] [id number] [place] [address] Mar, [facility] [place] [facility] [address] [id number] [address] Mar, [facility] [place] [facility] [address] [id number] [place] [address] Mar, [facility] [place] [facility] [address] [id number] [place] [address] Mar, [facility] [place] [facility] [address] [id number] [place] [address] Feb, [facility] [place] [facility] [address] [id number], [place] [address] Feb, [facility] [address] [id number] [place] [address] Nov, [facility] [address] [id number] [place] [address] Nov, [facility] [address] [id number] [place] [address] Nov, [facility] [address] [id number] [place] [address] Oct, [facility] [address] [id number] [place] [address] September, [facility] [address] [id number] [place] [address] Aug, [facility] [address] [id number] [place] [address] Aug, [facility] [address] [id number] [place] [address] Aug, [facility] [address] [id number] [place] [address] Aug, [facility] [address] [id number] [place] [address] Aug, [facility] [address] [id number] [place] [address] Aug, [facility] [address] [id number], [place] [address] Aug, [facility] [address] [id number] [place] [address] Aug, [facility] [place] [facility] [address] [id number] [place] [address] Jul, [facility] [address] [id number] [place] [address] Jul, [facility] [id number] [address] Jun, 2012 [facility] [id number] [address] [address] Jun, [facility] [id number], [place] [address] Jun, [facility] [id number], [place] [address] Jun, [facility] [id number] [address] Jun, [facility] [id number], [place] [address] Jun, [facility] [id number], [place] [address] Jun, [facility] [id number] [address] May, [facility] [id number], [place] [address] May, [facility] [id number] [place] [address] May, [facility] [id number], [place] [address] May, [facility] [id number] [place] [address] Mar, [facility] [address] [id number], [place] [address] Mar, [facility] [id number] [place] [address] Jan, IMMUNIZATIONS No Known Immunizations SOCIAL HISTORY [...] vomitting-[facility] 03/05/17 Hospitalization History hospital stay at [facility] for stomach issues 2016
--- OUTSIDE RECORDS SUMMARY | 2018-01-27 20:18 | XMS REPORT ---
Author Author TEJ CLARK [facility] Address [address] [place] [address] Care Team Providers Care Drainman Name Role Phone EDUARDO TEJ Unavailable PROBLEMS Type Condition ICD9-CM Code STZ08-DE Code Onset Dates Condition Status SNOMED Code Problem Weight loss R63.4 Active 878446105 Problem Primary insomnia F51.01 Active 3198193 Problem History of colon polyps Z86.010 Active 262627677 Problem Annual physical exam Z00.00 Active 962947661 Problem Migraine without aura and without status migrainosus, not intractable G43.009 Active 120487034 Problem Reactive depression F32.9 Active 27075517 Problem Asthma exacerbation J45.901 Active 648895920 Problem PTSD (post-traumatic stress disorder) F43.10 Active 30968242 Problem Diabetic polyneuropathy associated with type 2 diabetes mellitus E11.42 Active 05615505 Problem Neuropathy G62.9 Active 963982903 Problem Diabetes E11.9 Active 58187825 Problem Low TSH level R94.6 Active 349263811 Problem Back pain M54.9 Active 283379715 Problem Mixed hyperlipidemia E78.2 Active 996656563 Problem Type 2 diabetes mellitus with diabetic autonomic (poly)neuropathy E11.43 Active 29016707 Problem Gastroparesis K31.84 Active 115193369 Problem Uncomplicated asthma, unspecified asthma severity J45.909 Active 073528453 Problem custodial 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 Z79.4 Active 148340044 Problem Anorexia R63.0 Active 67585006 ALLERGIES Substance Reaction Event Type Date Status Coumadin vomitied blood Drug Allergy Apr, Active Toradol swells, itch from inside out Drug Allergy Apr, Active Nsaids (non-steroidal Anti-inflammatory Drug) triggers asthma, can't breathe, swells form inside out. Non Drug Allergy Apr, Active ENCOUNTERS Encounter Location Date Diagnosis [facility] [address] [address] Oct, [facility] [address] [address] Oct, [facility] [address] 069758- 7007 Oct, Anorexia R63.0 [facility] [address] 0[address]47- 6036 September, PTSD (post-traumatic stress disorder) F43.10 [place] [address] 793811- 8429 September, Low TSH level R94.6 [place] [address] 77667- 6288 September, Other dorsalgia M54.89 [place] [address] 62502- 6092 September, Annual physical exam Z00.00 and Migraine without aura and without status migrainosus, not intractable G43.009 [place] [address] 48317- 2690 September, Abnormal TSH R94.6 and Dysfunction of left eustachian tube H69.82 [place] [address] 51989- 4336 Aug, [facility] [address] 50125- 77[address] Aug, Anorexia R63.0 [facility] [id number] [place] [address] [id number] Aug, Dental examination Z01.20 and Xerostomia K11.7 [facility] [address] 47267- 2258 Aug, Neuropathy G62.9 [facility] [address] 29991- 8377 Aug, [place] [id number] [place] [address] 74138- 7063 Aug, Other dorsalgia M54.89 [facility] [id number] [place] [address] 40953- 8296 16 Aug, 2017 Type 2 diabetes mellitus with diabetic autonomic (poly) neuropathy E11.43 ; Diabetic polyneuropathy associated with type 2 diabetes mellitus E11.42 ; Bronchitis J40 ; Gastroparesis K31.84 and Reactive depression F32.9 [facility] [id number] [place] [address] 85819- 9065 Aug, PTSD (post-traumatic stress disorder) F43.10 [facility] [id number] [place] [address] 10558- 1735 Aug, Other dorsalgia M54.89 and Anorexia R63.0 [facility] [address] 19972- 7115 Jul, [facility] [id number] [place] [address] 35507- 1123 Jul, Other dorsalgia M54.89 [facility] [id number] [place] [address] 45521- 8129 Jul, [facility] [id number] [place] [address] 38829- 7149 Jul, [facility] [id number] [place] [address] 07849- 1185 Jul, PTSD (post-traumatic stress disorder) F43.10 [facility] [id number] [place] [address] 69361- 3522 Jul, [facility] [id number] [place] [address] 63673- 7143 Jul, [facility] [id number] [place] [address] 06595- 7124 Jul, [facility] [id number] [place] [address] 06654- 2546 Jul, Anorexia R63.0 [facility] [id number] [place] [address] 15896- 8266 Jun, [facility] [address] 15346- 2376 Jun, Vaginal discharge N89.8 ; Visit for gynecologic examination Z01.419 and Pelvic pressure in female R10.2 [facility] [address] 75132- 0266 Jun, [facility] [id number] [place] [address] 96380- 5156 Jun, Other dorsalgia M54.89 [facility] [address] 41899- 6496 Jun, [facility] [address] 35519- 6896 Jun, [facility] [id number] [place] [address] 83269- 5109 Jun, [facility] [address] 55977- 6230 May, Back pain M54.9 [facility] [address] 33531 2546 May, Anorexia R63.0 [facility] [id number] [place] [address] 02281 2546 May, Other dorsalgia M54.89 [facility] [id number] [place] [address] 89547- 4126 May, [facility] [address] 21535- 7586 May, Bronchitis J40 [facility] [id number] [place] [address] 37905- 5836 May, Type 2 diabetes mellitus with diabetic autonomic (poly) neuropathy E11.43 ; long term care 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 Z79.4 ; Back pain M54.9 and Neuropathy G62.9 [facility] [address] 18828- 7598 May, Left breast mass N63.20 [facility] [address] 7[address] 2546 May, [facility] [address] 85309 2542 Apr, Other dorsalgia M54.89 [facility] [address] 12199- 6266 Apr, Anorexia R63.0 [facility] [address] 60633- 1496 Apr, Anorexia R63.0 [facility] [address] 73966- 7339 Apr, Mass of left breast N63.20 [facility] [address] 17149- 0792 Apr, [facility] [address] 39243- 8516 Apr, [facility] [address] 83858- 3216 Apr, Diarrhea of presumed infectious origin A09 [facility] [address] 67869- 5821 Apr, Encounter for immunization Z23 [facility] [address] 53840- 9097 Apr, [facility] [address] 77830- 1688 Mar, Other dorsalgia M54.89 [facility] [address] 35691- 0858 Mar, [facility] [id number] [place] [address] 29342- 4606 Mar, [facility] [address] 33583- 9470 Mar, Anorexia R63.0 [facility] [id number] [place] [address] 28676- 1417 Mar, [facility] [address] 00368- 1807 Mar, Other dorsalgia M54.89 [facility] [address] 85735- 4706 Mar, [facility] [address] 15578- 3858 Mar, Encounter for immunization Z23 [facility] [address] 32268- 2296 Feb, Anorexia R63.0 [facility] [id number] [place] [address] 68224- 8709 Feb, Diabetes E11.9 [facility] [address] 87782- 2597 Feb, Back pain M54.9 and Diabetes E11.9 [facility] [id number] [place] [address] 63941- 7024 Feb, Diabetes E11.9 [facility] [id number] [place] [address] 13628- 1695 Feb, Neuropathy G62.9 [facility] [id number] [place] [address] 10028- 2310 Feb, Encounter for immunization Z23 ; Epigastric pain R10.13 ; Weight loss, abnormal R63.4 and Neuropathy G62.9 [facility] [place] [id number] [place] [address] [id number] Feb, [facility] [address] [place] [address]- 2564 Feb, [facility] [id number] [place] [address] 85313- 8544 Feb, Intractable vomiting with nausea, unspecified vomiting type R11.2 [facility] [id number] [place] [address] 04210 -7903 Feb, Chronic nausea R11.0 [facility] [address] 08528- 4385 Feb, Other dorsalgia M54.89 [facility] [address] 26701- 1804 Jan, [facility] [address] 76664- 1937 Jan, [facility] [address] 84653- 3685 Jan, [facility] [address] 64333- 4612 Jan, [facility] [id number] [place] [address] 75471- 3201 Jan, Asthma exacerbation J45.901 ; Bronchitis J40 and Neuropathy G62.9 [facility] [id number] [place] [address] 45875- 1284 Jan, Anorexia R63.0 [facility] [address] 39081- 2334 Jan, Other dorsalgia M54.89 [facility] [id number] [place] [address] 48712- 8551 Dec, [facility] [address] 48382- 5660 Dec, [facility] [address] 84361- 1007 Dec, Anorexia R63.0 [facility] [id number] [address]- 8078 Dec, Primary insomnia F51.01 [facility] [id number] [place] [address] 99964- 2755 Dec, Other dorsalgia M54.89 [facility] [id number] [place] [address] 33345- 4187 Dec, [facility] [id number] [place] [address] 78119- 2505 Nov, [facility] [id number] [place] [address] 56959- 9003 Nov, [facility] [id number] [place] [address] 69161- 5319 Nov, [facility] [id number] [place] [address] 79869- 0604 Nov, History of colon polyps Z86.010 [facility] [id number] [place] [address] 64952- 8978 Nov, Weight loss R63.4 ; Nausea and vomiting, intractability of vomiting not specified, unspecified vomiting type R11.2 and Abnormal LFTs R79.89 [facility] [address] [address]- 8777 Nov, [facility] [id number] [place] [address] 33912- 5970 Nov, Neuropathy G62.9 and Pain in right knee M25.561 [facility] [id number] [place] [address] 32665- 2149 Nov, Back pain M54.9 [facility] [id number] [place] [address] 58748- 0032 Nov, [facility] [id number] [place] [address] 99361- 5696 Nov, Bronchitis J40 [facility] [id number] [address]- 9225 Nov, Weight loss R63.4 [facility] [id number] [place] [address] 50002- 8237 Oct, Back pain M54.9 [facility] [id number] [place] [address] 79976- 0845 16 Oct, 2016 [facility] [id number] [place] [address] 01166- 3718 Oct, Back pain M54.9 [facility] [id number] [place] [address] 31121- 5326 13 Oct, 2016 Type 2 diabetes mellitus without complications E11.9 and Bronchitis J40 [facility] [id number] [place] [address] 35679- 1886 Oct, [facility] [id number] [place] [address] 61495- 3581 Oct, [facility] [id number] [place] [address] 78625- 6028 September, Gastroparesis K31.84 ; Type 2 diabetes mellitus with diabetic autonomic (poly)neuropathy E11.43 and Neuropathy G62.9 [facility] [id number] [place] [address] 62448- 7328 September, Other dorsalgia M54.89 [facility] [id number] [place] [address] 25037- 9071 September, [facility] [address] [place] [address] 73067- 3277 September, [facility] [id number] [place] [address] 62726- 6791 Aug, Gastroparesis K31.84 and Radicular leg pain M54.10 [facility] [address] [address]- 3135 Aug, Anorexia R63.0 [facility] [id number] [place] [address] 92367- 2120 20 Aug, 2016 Bronchitis J40 [facility] [address] 05989- 8563 19 Aug, 2016 Back pain M54.9 [place] [id number] [place] [address] 05976- 6054 04 Aug, 2016 Routine gynecological examination Z01.419 ; Routine screening for STI (sexually transmitted infection) Z11.3 and Yeast infection of the vagina B37.3 [place] [id number] [place] [address] 80179- 8687 Jul, Other dorsalgia M54.89 [place] [id number] [place] [address] 63877- 2717 Jul, Diabetes E11.9 and Gastroparesis K31.84 [place] [address] 83927- 9018 Jun, [facility] [id number] [place] [address] 91749- 1069 24 Jun, 2016 Back pain M54.9 [facility] [id number] [place] [address] 84713- 8776 14 Jun, 2016 Neuropathy G62.9 [facility] [id number] [place] [address] [id number] 02 Jun, 2016 Encounter for dental examination Z01.20 [facility] [id number] [place] [address] 01814- 5051 Jun, Gastroparesis 536.3 and Anorexia R63.0 [place] [address] 16446- 3782 May, Other dorsalgia M54.89 [place] [id number] [place] [address] 56797- 0776 May, Periumbilical abdominal pain R10.33 ; Weight loss R63.4 and Gastroparesis K31.84 [facility] [id number] [place] [address] 12896- 0756 May, Back pain M54.9 [facility] [id number] [place] [address] 07357 2546 Apr, Anorexia R63.0 [facility] [address] 55515 2546 Apr, Anorexia R63.0 [facility] [address] 44537- 2546 16 Apr, 2016 Back pain M54.9 [facility] [address] 22999 2546 Apr, Back pain M54.9 [facility] [id number] [place] [address] 20342 2546 Apr, [facility] [address] 81510 2546 Apr, Bronchitis J40 and Neuropathy G62.9 [facility] [id number] [place] [address] 55573 2546 Apr, Neuropathy G62.9 [facility] [id number] [place] [address] 47775 2546 05 Apr, 2016 [facility] [id number] [place] [address] 89721 254 Apr, Back pain M54.9 [facility] [id number] [place] [address] 30229 2546 Mar, Type 2 diabetes mellitus with diabetic autonomic (poly) neuropathy E11.43 [facility] [id number] [place] [address] 26540 2546 Mar, Type 2 diabetes mellitus without complications E11.9 [facility] [id number] [place] [address] 89170- 5016 Mar, Neuropathy G62.9 [place] [address] [place] [address] 88754- 5585 Mar, [place] [id number] [place] [address] 82301- 3742 Mar, Breast cancer screening Z12.39 [place] [address] [place] [address] 30474- 7566 Mar, Other dorsalgia M54.89 [place] [id number] [place] [address] 97794- 6958 Feb, [place] [id number] [place] [address] 02966- 9714 Jan, Neuropathy G62.9 ; Type 2 diabetes mellitus with diabetic autonomic (poly)neuropathy E11.43 ; Uncomplicated asthma, unspecified asthma severity J45.909 and Encounter for immunization Z23 [place] [id number] [place] [address] 61536- 7509 Jan, [place] [id number] [place] [address] 74471- 9655 Jan, [place] [id number] [place] [address] 39485- 3744 Dec, [place] [id number] [place] [address] 23422- 4892 Dec, [place] [id number] [place] [address] 06176- 6727 Nov, [place] [id number] [place] [address] 65651- 0543 Nov, Back pain M54.9 [place] [id number] [place] [address] 64639- 4652 Nov, Neuropathy G62.9 ; Mixed hyperlipidemia E78.2 ; Type 2 diabetes mellitus with diabetic autonomic (poly)neuropathy E11.43 and long term care 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 Z79.4 [place] [address] [place] [address] 46712- 6477 Oct, [facility] [id number] [place] [address] 17231- 9432 Oct, Other dorsalgia M54.89 [facility] [id number] [place] [address] 65058- 2980 September, Primary insomnia F51.01 [facility] [id number] [place] [address] 27900- 3025 September, [facility] [id number] [place] [address] 09448- 1102 Aug, Other dorsalgia M54.89 [facility] [address] 52964- 8956 Jul, [facility] [id number] [place] [address] 08501- 3035 Jul, Other dorsalgia M54.89 [facility] [address] 73396- 6354 Jul, Diabetes E11.9 ; Back pain M54.9 ; Neuropathy G62.9 and Gastroparesis K31.84 [facility] [id number] [place] [address] 43674- 2076 Jun, [facility] [id number] [place] [address] 12214- 4463 Jun, Other dorsalgia M54.89 [facility] [id number] [place] [address] 88072- 2009 May, [facility] [id number] [place] [address] 29237- 6005 May, Radicular leg pain M54.10 and Other dorsalgia M54.89 [facility] [id number] [place] [address] 97440- 7191 Apr, [facility] [id number] [place] [address] 32546- 3897 Mar, [facility] [address] [address]- 2288 Mar, [facility] [id number] [place] [address] 73430- 7303 Mar, Radicular leg pain M54.10 [facility] [id number] [place] [address] 60664- 1288 Feb, [facility] [id number] [place] [address] 83296- 0643 Feb, [facility] [id number] [place] [address] 30441- 4191 Feb, [facility] [id number] [place] [address] 54162- 3504 Jan, [facility] [id number] [place] [address] 52173- 5134 Jan, IBS (irritable bowel syndrome) 564.1 [facility] [id number] [place] [address] 98390- 5923 Jan, [facility] [id number] [place] [address] 19242- 4319 Jan, [facility] [id number] [place] [address] 24781- 6419 Jan, Diabetes mellitus without mention of complication, type II or unspecified type, not stated as uncontrolled 250.00 ; Gastroparesis 536.3 and Hypoacusis 389.9 [facility] [address] [address]- 4100 Jan, [facility] [id number] [place] [address] 38380- 7155 Jan, [facility] [id number] [place] [address] 08558- 9037 Dec, [facility] [id number] [place] [address] 57690- 1616 Dec, [facility] [id number] [address]- 0142 Dec, [facility] [address] [place] [address] 820498- 7500 Dec, Back pain 724.5 and Gastroparesis 536.3 [facility] [id number] [place] [address] 41801- 9768 Nov, [facility] [id number] [place] [address] [id number] Nov, Dental examination V72.2 [facility] [id number] [place] [address] 87428- 3799 Nov, [facility] [id number] [place] [address] 56723- 4069 Nov, [facility] [id number] [place] [address] 85117- 8724 Nov, Depressive disorder, not elsewhere classified 311 and No condition on Arnold II V71.09 [facility] [id number] [place] [address] 37123- 8689 Nov, Diabetes 250.00 and Symptomatic menopausal or female climacteric states 627.2 [facility] [id number] [place] [address] 49387- 7625 Oct, [facility] [id number] [place] [address] 14889- 7993 Oct, Lumbar strain 847.2 [facility] [id number] [place] [address] 86659- 3052 Oct, Gastroparesis 536.3 and Unspecified myalgia and myositis 729.1 [facility] [id number] [address] Aug, [facility] [id number] [place] [address] 34730- 7337 Aug, [facility] [place] [facility] [address] [id number] [place] [address] Jul, [facility] [place] [facility] [address] [id number] [place] [address]- [address]697 Jul, [facility] [place] [facility] [address] [id number] [place] [address] 6499 Jul, [facility] [place] [facility] [address] [id number] [place] [address]- 3762 Jul, [facility] [place] [facility] [address] [id number] [place] [address]- 6232 Jul, [facility] [place] [facility] [address] [id number] [place] [address]- 0926 Jun, [facility] [place] [facility] [address] [id number] [place] [address]- [address] Jun, [facility] [place] [facility] [address] [id number] [place] [address]- 2953 Jun, [facility] [place] [facility] [address] [id number] [place] [address] 9294 May, [facility] [place] [facility] [address] [id number] [place] [address]- 3895 May, [facility] [facility] [address] [id number] [place] [address] Mar, [facility] [place] [facility] [address] [id number] [place] [address] Mar, [facility] [place] [facility] [address] [id number] [place] [address] Mar, [facility] [place] [facility] [address] [id number] [place] [address] Mar, [facility] [place] [facility] [address] [id number] [place] [address] Mar, [facility] [place] [facility] [address] [id number] [place] [address] Mar, [facility] [address] [id number] [place] [address] Feb, [facility] [address] [id number] [place] [address] Feb, [facility] [address] [id number] [place] [address] Nov, [facility] [address] [id number] [place] [address] Nov, [facility] [address] [id number] [place] [address] Nov, [facility] [address] [id number] [place] [address] Oct, [facility] [address] [id number] [place] [address] September, [facility] [address] [id number] [place] [address] Aug, [facility] [address] [id number] [place] [address] Aug, [facility] [address] [id number] [place] [address] Aug, [facility] [address] [id number] [place] [address] Aug, [facility] [address] [id number] [place] [address] Aug, [facility] [address] [id number] [place] [address] Aug, [facility] [address] [id number] [place] [address] Aug, [facility] [address] [id number] [place] [address] Aug, [facility] [address] [id number] [place] [address] Jul, [facility] [address] [id number] [place] [address] Jul, [facility] [address] [id number] [place] [address] Jun, [facility] [address] [id number] [place] [address] Jun, [facility] [address] [id number] [place] [address] Jun, [facility] [address] [id number] [place] [address] 08 Jun, 2012 [facility] [address] [id number] [place] [address] Jun, [facility] [address] [id number] [place] [address] Jun, [facility] [address] [id number] [place] [address] Jun, [facility] [address] [id number] [place] [address] May, [facility] [address] [id number] [place] [address] May, [facility] [address] [id number] [place] [address] May, [facility] [address] [id number] [place] [address] May, [facility] [address] [id number] [place] [address] Mar, [facility] [address] [id number] [place] [address] Mar, [facility] [address] [facility] [id number] [place] [address] Jan, IMMUNIZATIONS No Known Immunizations SOCIAL HISTORY Never Assessed REASON FOR VISIT Breast exam, WANTING DENIS. no c/o- Tanna Hess RN PLAN OF CARE Activity Details Follow Up 1 Year, sooner prn Reason: VITAL SIGNS Height 62 in 2017-05-13 Weight 89 lbs 2017-05-13 Heart Rate 88 bpm 2017-05-13 BMI 16.28 kg/m2 2017-05-13 Blood pressure systolic 122 mmHg 2017-05-13 Blood pressure diastolic 68 mmHg 2017-05-13 MEDICATIONS Medication Instructions Dosage Frequency Start Date End Date Duration Status ProAir HFA 108 INHALE 2 PUFFS BY MOUTH FOUR TIMES DAILY NEEDED 25 Active Zofran ODT 8 MG Orally every 6 hrs 1 tablet 6h 5 Active MiraLax - Orally Once a day as needed 1 packet mixed with 8 ounces of fluid Active Cyanocobalamin 1000 MCG Orally Once a day 1 tablet 24h Active Marinol 5 mg Orally Twice a day 1 capsule before lunch and supper 12h 14 days Active Atorvastatin Calcium 40 MG Orally Once a day 1 tablet 24h Active Xarelto 20 mg 1 Tablet by Oral route 1 time per day Jul, Active Lyrica 150 MG Orally Twice a day 1 capsule 12h 30 days Active Oxycodone-Acetaminophen 10-325 MG Orally 4 times a day 1 tablet as needed 6h Apr, 28 days Active Comfort Lancets - as directed 8h Mar, Active Questran Light 4 GM/DOSE Orally Twice a day 1 packet 12h Apr, 05 days Active [facility] Pen Paxinos 31G X 6 MM 1 THREE TIMES A DAY Active Acetaminophen 500 mg Orally at bedtime 2 capsules Active Quad Cane - as directed 24h Apr, Active Ayden Contour Next Test - subcutaneously 3 times a day test blood sugar 8h Active Promethazine HCl 25 MG Orally every 6 hrs 1 tablet as needed 6h 5 Active Tizanidine HCl 4 MG Orally 2 times a day 1 tablet 12h May, 30 days Active Multiple Vitamins-Iron - Orally Once a day 1 tablet 24h Active Lantus SoloStar 100 20 UNITS SUB-Q EVERY NIGHT AT BEDTIME Active Escitalopram Oxalate 20 mg Orally Once a day 1 tablet 24h Active Omeprazole 40 mg 1 CAP(S) ONCE A DAY ORALLY 30 DAYS 30 Active Humalog KwikPen 100 INJECT 5 UNITS SUB-Q THREE TIMES DAILY BOFORE MEALS Active Zolpidem Tartrate 10 mg TAKE ONE TABLET BY MOUTH ONCE DAILY 30 Active Linzess 145 MCG Orally Once a day 1 capsule 24h Active RESULTS Name Result Date Reference Range Mammogram Dx, Bilateral 2017-05-20 PROCEDURES No Known procedures INSTRUCTIONS MEDICATIONS ADMINISTERED [...] vomitting-[facility] 03/05/17 Hospitalization History hospital stay at [facility] for stomach issues 2016
--- OUTSIDE RECORDS SUMMARY | 2018-01-27 20:19 | XMS REPORT ---
Author Author LORI NANNETTE [facility] Address [address] [place] [address] Care Team Providers Care Rn Acute Dialysis Name Role Phone TRISH SANDOVALHANY Unavailable PROBLEMS Type Condition ICD9-CM Code SAN36-ON Code Onset Dates Condition Status SNOMED Code Problem Weight loss R63.4 Active 779514796 Problem Primary insomnia F51.01 Active 1101942 Problem History of colon polyps Z86.010 Active 881944088 Problem Annual physical exam Z00.00 Active 983743660 Problem Migraine without aura and without status migrainosus, not intractable G43.009 Active 117596996 Problem Reactive depression F32.9 Active 48080882 Problem Asthma exacerbation J45.901 Active 921086212 Problem PTSD (post-traumatic stress disorder) F43.10 Active 62653907 Problem Diabetic polyneuropathy associated with type 2 diabetes mellitus E11.42 Active 37484837 Problem Neuropathy G62.9 Active 390587098 Problem Diabetes E11.9 Active 37447335 Problem Depressive disorder, not elsewhere classified 311 Active 99889873 Problem Back pain M54.9 Active 333902873 Problem Type 2 diabetes mellitus with diabetic autonomic (poly)neuropathy E11.43 Active 46629529 Problem 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 [id number] [address] September, [facility] [address] [id number] [address] September, [facility] [id number] [place] [address] 39972- 2627 September, Annual physical exam Z00.00 and Migraine without aura and without status migrainosus, not intractable G43.009 [place] [address] [id number]- [address] September, Abnormal TSH R94.6 and Dysfunction of left eustachian tube H69.82 [place] [address] 516891- 3091 Aug, [place] [address] 43843- 3754 Aug, Anorexia R63.0 [facility] [address] [id number] Aug, Dental examination Z01.20 and Xerostomia K11.[address] 6[address]64- 1597 Aug, Neuropathy G62.9 [place] [address] 93803- 2402 Aug, [place] [address] 548149- 2910 Aug, Other dorsalgia M54.89 [place] [address] 38581- 1746 Aug, Type 2 diabetes mellitus with diabetic autonomic (poly) neuropathy E11.43 ; Diabetic polyneuropathy associated with type 2 diabetes mellitus E11.42 ; Bronchitis J40 ; Gastroparesis K31.84 and Reactive depression F32.9 [place] [address] 81430- 5088 Aug, PTSD (post-traumatic stress disorder) F43.10 [place] [address] 70519- 0857 Aug, Other dorsalgia M54.89 and Anorexia R63.0 [place] [address] 37750- 3982 Jul, [facility] [id number] [place] [address] 17672- 6616 Jul, Other dorsalgia M54.89 [facility] [id number] [place] [address] 75166- 7906 Jul, [facility] [id number] [place] [address] 86348- 4776 Jul, [facility] [id number] [place] [address] 70173- 9425 Jul, PTSD (post-traumatic stress disorder) F43.10 [facility] [address] 91452- 6476 Jul, [facility] [id number] [place] [address] 05373- 4816 Jul, [facility] [address] 79890- 7127 Jul, [facility] [id number] [place] [address] 02737- 0492 Jul, Anorexia R63.0 [facility] [id number] [place] [address] 21861- 1266 Jun, [facility] [id number] [place] [address] 06313- 0836 Jun, Vaginal discharge N89.8 ; Visit for gynecologic examination Z01.419 and Pelvic pressure in female R10.2 [facility] [id number] [place] [address] 05558- 4036 Jun, [facility] [id number] [place] [address] 28674- 1016 Jun, Other dorsalgia M54.89 [facility] [id number] [place] [address] 55156- 6746 Jun, [facility] [address] [place] [address]- 0732 Jun, [facility] [address] 68066- 7058 Jun, [facility] [address] 31660- 1602 May, Back pain M54.9 [facility] [address] 07362- 4566 May, Anorexia R63.0 [facility] [address] 11623- 4448 May, Other dorsalgia M54.89 [facility] [address] 15817- 3465 May, [facility] [address] 61397- 2805 May, Bronchitis J40 [facility] [address] 88128- 0788 May, Type 2 diabetes mellitus with diabetic autonomic (poly) neuropathy E11.43 ; halfway 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 Z79.4 ; Back pain M54.[address] [facility] [id number] [place] [address] 53553- 9235 May, Left breast mass N63.20 [facility] [address] 19866- 7914 May, [facility] [id number] [place] [address] 24965- 8142 Apr, Other dorsalgia M54.89 [facility] [address] 40758- 3516 Apr, Anorexia R63.0 [facility] [id number] [place] [address] 54483- 4706 Apr, Anorexia R63.0 [facility] [address] [place] [address] 7356 Apr, Mass of left breast N63.20 [facility] [id number] [place] [address] 72610- 0756 Apr, [facility] [id number] [place] [address] 99949- 5022 Apr, [facility] [address] 82602- 3358 Apr, Diarrhea of presumed infectious origin A09 [facility] [id number] [place] [address] 51339- 1497 Apr, Encounter for immunization Z23 [facility] [address] 80754- 7378 Apr, [facility] [id number] [place] [address] 81867- 8568 Mar, Other dorsalgia M54.89 [facility] [id number] [place] [address] 89875- 8735 Mar, [facility] [id number] [place] [address] 67930- 6889 Mar, [facility] [id number] [place] [address] 61122- 6097 Mar, Anorexia R63.0 [facility] [id number] [place] [address] 44517- 5669 Mar, [facility] [id number] [place] [address] 26030- 7452 Mar, Other dorsalgia M54.89 [facility] [id number] [place] [address] 74443- 5605 Mar, [facility] [id number] [place] [address] 11542- 5623 Mar, Encounter for immunization Z23 [facility] [id number] [place] [address] 75917- 7121 Feb, Anorexia R63.0 [facility] [id number] [place] [address] 22564- 3216 Feb, Diabetes E11.9 [facility] [id number] [place] [address] 98423- 0976 Feb, Back pain M54.[address] [facility] [address] 46697- 6649 Feb, Diabetes E11.9 [facility] [address] 14455- 9784 Feb, Neuropathy G62.9 [facility] [address] 70018- 9767 Feb, Encounter for immunization Z23 ; Epigastric pain R10.13 ; Weight loss, abnormal R63.4 and Neuropathy G62.9 [facility] [address] [id number] Feb, [facility] [address] 85370- 8077 Feb, [facility] [id number] [place] [address] 03226- 9891 Feb, Intractable vomiting with nausea, unspecified vomiting type R11.2 [facility] [id number] [place] [address] 13208 -8929 Feb, Chronic nausea R11.0 [facility] [id number] [place] [address] 48397- 8194 Feb, Other dorsalgia M54.89 [facility] [id number] [place] [address] 20612- 8768 Jan, [facility] [id number] [place] [address] 68113- 0879 Jan, [facility] [address] 77730- 5085 Jan, [facility] [id number] [place] [address] 73522- 8746 Jan, [facility] [id number] [place] [address] 99832 2546 Jan, Asthma exacerbation J45.901 ; Bronchitis J40 [address] G62.9 [facility] [address] 90207 2546 Jan, Anorexia R63.0 [facility] [address] 15221 2546 Jan, Other dorsalgia M54.89 [facility] [address] 73320- 3236 Dec, [facility] [address] 90745- 7236 Dec, [facility] [id number] [place] [address] 77097- 1254 Dec, Anorexia R63.0 [facility] [id number] [place] [address] 23427- 1258 Dec, Primary insomnia F51.01 [facility] [id number] [place] [address] 25084- 7922 Dec, Other dorsalgia M54.89 [facility] [id number] [place] [address] 53705 2546 Dec, [facility] [id number] [place] [address] 35804 2548 Nov, [facility] [address] 41771- 0015 Nov, [facility] [id number] [place] [address] 11649- 3196 Nov, [facility] [id number] [place] [address] 746402- 9972 Nov, History of colon polyps Z86.010 [facility] [id number] [place] [address] 78950- 5398 Nov, Weight loss R63.4 ; Nausea and vomiting, intractability of vomiting not specified, unspecified vomiting type R11.2 [address] R[address]89 [facility] [id number] [place] [address] 30068- 8812 Nov, [facility] [address] 27710- 1394 Nov, Neuropathy G62.9 and Pain in right knee M25.561 [place] [address] 88580- 1769 Nov, Back pain M54.9 [facility] [id number] [place] [address] 29835- 4164 10 Nov, 2016 [facility] [address] 18840- 6912 Nov, Bronchitis J40 [facility] [id number] [place] [address] 37604- 1735 03 Nov, [address] [facility] [id number] [place] [address] 36327- 2837 16 Oct, [address] [facility] [id number] [place] [address] 45486- 0407 16 Oct, 2016 [facility] [id number] [place] [address] 22683- 2440 14 Oct, [address] [facility] [id number] [place] [address] 45591- 0336 13 Oct, 2016 Type 2 diabetes mellitus without complications E11.[address] [facility] [id number] [place] [address] 32615- 9815 05 Oct, 2016 [facility] [address] [place] [address]- 6306 Oct, [place] [id number] [place] [address] 79029- 5632 September, Gastroparesis K31.84 ; Type 2 diabetes mellitus with diabetic autonomic (poly)neuropathy E11.43 and Neuropathy G62.9 [place] [address] 12434- 5862 September, Other dorsalgia M54.89 [place] [address] 73388- 8647 September, [place] [address] 51792- 7014 September, [place] [address] 35649- 3542 Aug, Gastroparesis K31.84 and Radicular leg pain M54.10 [place] [address] 51501- 6548 Aug, Anorexia R63.0 [place] [address] 31503- 9590 Aug, Bronchitis J40 [place] [address] 44582- 5244 Aug, Back pain M54.9 [place] [id number] [place] [address] 68529- 5647 Aug, Routine gynecological examination Z01.419 ; Routine screening for STI (sexually transmitted infection) Z11.3 and Yeast infection of the vagina B37.3 [place] [id number] [place] [address] 04714- 8529 Jul, Other dorsalgia M54.89 [place] [id number] [place] [address] 98392- 8959 Jul, Diabetes E11.9 and Gastroparesis K31.84 [place] [address] [place] [address]- 2966 Jun, [facility] [address] 80230- 2507 24 Jun, [address] [facility] [address] 79554- 0689 14 Jun, 2016 Neuropathy G62.9 [facility] [address] [id number] 02 Jun, 2016 Encounter for dental examination Z01.20 [facility] [address] 52741- 5496 Jun, Gastroparesis 536.[address] [facility] [address] 94376- 1673 May, Other dorsalgia M54.89 [facility] [address] 44980- 6095 May, Periumbilical abdominal pain R10.33 ; Weight loss R63.[address] [facility] [address] 93674- 8116 May, Back pain M54.9 [facility] [address] 89081- 7082 Apr, Anorexia R63.0 [facility] [address] 69724- 9453 Apr, Anorexia R63.0 [facility] [address] 83530- 3206 Apr, Back pain M54.9 [facility] [address] 52951- 9993 Apr, Back pain M54.9 [facility] [address] 20965- 0704 Apr, [place] [id number] [place] [address] 00932- 3226 Apr, Bronchitis J40 [address]9 [facility] [address] 08409- 2061 Apr, Neuropathy G62.9 [place] [address] 16620- 8164 Apr, [place] [address] 22951- 5227 Apr, Back pain M54.9 [place] [address] 26871- 1533 Mar, Type 2 diabetes mellitus with diabetic autonomic (poly) neuropathy E11.43 [place] [address] 38837- 7846 Mar, Type 2 diabetes mellitus without complications E11.9 [place] [address] 03389- 1694 Mar, Neuropathy G62.9 [place] [address] 44413- 1645 Mar, [place] [address] 58812- 6850 Mar, Breast cancer screening Z12.39 [place] [address] 56659- 7878 Mar, Other dorsalgia M54.89 [place] [id number] [place] [address] 13510- 9624 Feb, [place] [address] 51959- 3993 Jan, Neuropathy G62.9 ; Type 2 diabetes mellitus with diabetic autonomic (poly)neuropathy E11.43 ; Uncomplicated asthma, unspecified asthma severity J45.909 and Encounter for immunization Z23 [place] [id number] [place] [address] 59829- 6021 Jan, [facility] [address] [address]- 2587 Jan, [facility] [id number] [place] [address] 68099- 4667 Dec, [facility] [id number] [place] [address] 12953- 5437 Dec, [facility] [id number] [place] [address] 48509- 3697 Nov, [facility] [id number] [place] [address] 91940- 8832 Nov, Back pain M54.9 [facility] [id number] [place] [address] 32302- 7836 Nov, Neuropathy G62.9 ; Mixed hyperlipidemia E78.2 ; Type 2 diabetes mellitus with diabetic autonomic (poly)neuropathy E11.43 and halfway 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 Z79.4 [facility] [id number] [place] [address] 32641- 6832 Oct, [facility] [id number] [place] [address] 16610- 1620 Oct, Other dorsalgia M54.89 [facility] [id number] [place] [address] 56589- 1143 September, Primary insomnia F51.01 [facility] [id number] [place] [address] 74424- 3701 September, [facility] [id number] [place] [address] 82624- 4316 Aug, Other dorsalgia M54.89 [facility] [id number] [place] [address] 23705- 2519 Jul, [facility] [id number] [place] [address] 08094- 5058 Jul, Other dorsalgia M54.89 [facility] [id number] [place] [address] 45667- 4652 Jul, Diabetes E11.9 ; Back pain M54.9 ; Neuropathy G62.[address] [facility] [id number] [place] [address] 38616- 9987 Jun, [facility] [address] 80201- 6829 Jun, Other dorsalgia M54.89 [facility] [id number] [place] [address] 96804- 2545 May, [facility] [id number] [place] [address] 45875- 2823 May, Radicular leg pain M54.10 and Other dorsalgia M54.89 [facility] [id number] [place] [address] 56490- 4255 Apr, [facility] [id number] [place] [address] 70792- 2525 Mar, [facility] [id number] [place] [address] 09219- 5814 Mar, [facility] [id number] [place] [address] 81045- 6740 Mar, Radicular leg pain M54.10 [facility] [id number] [place] [address] 62489- 6070 Feb, [facility] [id number] [place] [address] 37310- 6859 Feb, [facility] [id number] [place] [address] 43458- 7052 Feb, [facility] [id number] [place] [address] 71778- 3581 Jan, [facility] [id number] [place] [address] 00176- 2772 Jan, IBS (irritable bowel syndrome) 564.1 [facility] [id number] [place] [address] 62490- 9196 Jan, [facility] [id number] [place] [address] 44245- 9333 Jan, [facility] [id number] [place] [address] 48385- 0437 Jan, Diabetes mellitus without mention of complication, type II or unspecified type, not stated as uncontrolled 250.00 ; Gastroparesis 536.[address] [facility] [id number] [place] [address] 96733- 0166 Jan, [facility] [id number] [place] [address] 14238- 5811 Jan, [facility] [id number] [place] [address] 20891- 5634 Dec, [facility] [id number] [place] [address] 49204- 5110 Dec, [facility] [id number] [place] [address] 13033- 5863 Dec, [facility] [id number] [place] [address] 87680- 0658 Dec, Back pain 724.[address] [facility] [id number] [place] [address] 74524- 3943 Nov, [facility] [id number] [place] [address] [id number] Nov, Dental examination V72.2 [facility] [id number] [place] [address] 62625- 4621 Nov, [facility] [id number] [place] [address] 11534- 6001 Nov, [facility] [id number] [address] Nov, Depressive disorder, not elsewhere classified 311 and No condition on [place] II V71.09 [facility] [id number] [address] Nov, Diabetes 250.00 and Symptomatic menopausal or female climacteric states 627.2 [facility] [id number] [place] [address] 54837- 6195 Oct, [facility] [id number] [place] [address] 28138- 7315 Oct, Lumbar strain 847.2 [facility] [id number] [place] [address] 52245- 4156 Oct, Gastroparesis 536.3 and Unspecified myalgia and myositis 729.1 [facility] [id number] [address] Aug, [facility] [address] [address] Aug, [facility] [address] [address] Jul, [facility] [address] [address] Jul, [facility] [address] [address] Jul, [facility] [address] [address] Jul, [facility] [id number] [place] [address] Jul, [facility] [address] [address] 18 Jun, 2014 [facility] [address] [address] Jun, [facility] [place] [facility] [address] [id number] [place] [address] Jun, [facility] [place] [facility] [address] [id number] [place] [address] May, [facility] [place] [facility] [address] [id number] [place] [address] May, [facility] [place] [facility] [address] [id number] [place] [address] Mar, [facility] [place] [facility] [address] [id number] [place] [address] Mar, [facility] [place] [facility] [address] [id number] [place] [address] Mar, [facility] [place] [facility] [address] [id number] [place] [address] Mar, [facility] [place] [facility] [address] [id number] [place] [address] Mar, [facility] [place] [facility] [address] [id number] [place] [address] Mar, [facility] [place] [facility] [address] [id number] [place] [address] Feb, [facility] [place] [facility] [address] [id number] [place] [address] Feb, [facility] [place] [facility] [address] [id number] [address] Nov, [facility] [place] [facility] [address] [id number] [place] [address] Nov, [facility] [place] [facility] [address] [id number] [place] [address] Nov, [facility] [place] [facility] [address] [id number] [place] [address] Oct, [facility] [place] [facility] [address] [id number] [place] [address] September, [facility] [address] [id number] [place] [address] Aug, [facility] [place] [facility] [address] [id number] [place] [address] 15 Aug, 2012 [facility] [place] [facility] [address] [id number] [place] [address] Aug, [facility] [place] [facility] [address] [id number] [place] [address] Aug, [facility] [place] [facility] [address] [id number] [place] [address] Aug, [facility] [place] [facility] [address] [id number] [place] [address] Aug, [facility] [place] [facility] [address] [id number] [place] [address] Aug, [facility] [place] [facility] [address] [id number] [place] [address] Aug, [facility] [place] [facility] [address] [id number] [place] [address] Jul, [facility] [place] [facility] [address] [facility] [id number] [place] [address] Jul, [facility] [place] [facility] [address] [id number] [place] [address] Jun, [facility] [place] [facility] [address] [id number] [place] [address] Jun, [facility] [place] [facility] [address] [id number] [place] [address] Jun, [facility] [place] [facility] [address] [id number] [place] [address] 08 Jun, 2012 [facility] [place] [facility] [address] [id number] [place] [address] 07 Jun, 2012 [facility] [address] [facility] [id number], [place] [address] Jun, [facility] [id number] Jun, [facility] [id number], [place] [address] May, [facility] [address] [address] May, [facility] [address] [id number] [address] May, [facility] [address] [address] May, [facility] [address] [address] Mar, [facility] [address] [address] Mar, [facility] [address] [facility] [id number], [place] [address] Jan, IMMUNIZATIONS No Known Immunizations SOCIAL HISTORY Never Assessed REASON FOR VISIT Hospital admit/DC PLAN OF CARE VITAL SIGNS MEDICATIONS Medication Instructions Dosage Frequency Start Date End Date Duration Status [employer] Pen Raymond 31G X 6 MM 1 THREE TIMES A DAY Active Acetaminophen 500 mg Orally at bedtime 2 capsules Active Lyrica 150 MG Orally Twice a day 1 capsule 12h 30 days Active Quad Cane - as directed 24h Apr, Active Atorvastatin Calcium 40 MG Orally Once a day 1 tablet 24h Active Ayden Contour Next Test - subcutaneously 3 times a day test blood sugar 8h Active Comfort Lancets - as directed 8h 30 Mar, 2016 Active Multiple Vitamins-Iron - Orally Once a day 1 tablet 24h Active Oxycodone-Acetaminophen 10-325 MG Orally 4 times a day 1 tablet as needed 6h Feb, 28 days Active Promethazine-Codeine 6.25-10 MG/5ML Orally every 6 hrs 5 ml as needed 6h Jan, Active Tizanidine HCl 4 MG Orally 2 times a day 1 tablet 12h 23 Nicholas, 2018 30 days Active Humalog KwikPen 100 INJECT 5 u ac Active Omeprazole 40 mg 1 CAP(S) ONCE A DAY ORALLY 30 DAYS 30 Active Marinol 5 mg Orally Twice a day 1 capsule before lunch and supper 12h 14 days Active Xarelto 20 mg 1 Tablet by Oral route 1 time per day Jul, Active Linzess 145 MCG Orally Once a day 1 capsule 24h Active Escitalopram Oxalate 20 mg Orally Once a day 1 tablet 24h Active Lantus SoloStar 100 Subcutaneous Once a day 15 units at bedtime 24h Active Albuterol Sulfate 90 mcg/actuation Orally 4 times a day inhale 2 puffs by Inhalation route 4 times per day as needed PRN 6h Jul, Active Cyanocobalamin 1000 MCG Orally Once a day 1 tablet 24h Active MiraLax - Orally Once a day as needed 1 packet mixed with 8 ounces of fluid Active Ondansetron 8 MG Orally every 8 hrs 1 tablet on the tongue and allow to dissolve 8h Feb, 10 days Active RESULTS No Results PROCEDURES No [...]
--- OUTSIDE RECORDS SUMMARY | 2018-01-27 20:20 | XMS REPORT ---
Author Author HORACE HIGGINS [facility] Address [address] [place] [address] Care Team Providers Care Credit Assessment Analyst Name Role Phone HORACE HIGGINS Unavailable PROBLEMS Type Condition ICD9-CM Code KYY69-HE Code Onset Dates Condition Status SNOMED Code Problem Weight loss R63.4 Active 250062777 Problem Primary insomnia F51.01 Active 9481717 Problem History of colon polyps Z86.010 Active 931343439 Problem Annual physical exam Z00.00 Active 606924526 Problem Migraine without aura and without status migrainosus, not intractable G43.009 Active 191838160 Problem Reactive depression F32.9 Active 32209366 Problem Asthma exacerbation J45.901 Active 965412866 Problem PTSD (post-traumatic stress disorder) F43.10 Active 19488622 Problem Diabetic polyneuropathy associated with type 2 diabetes mellitus E11.42 Active 74274273 Problem Neuropathy G62.9 Active 866095312 Problem Diabetes E11.9 Active 75991426 Problem Low TSH level R94.6 Active 444246959 Problem Back pain M54.9 Active 256388342 Problem Mixed hyperlipidemia E78.2 Active 022150561 Problem Type 2 diabetes mellitus with diabetic autonomic (poly)neuropathy E11.43 Active 45826715 Problem Gastroparesis K31.84 Active 595395351 Problem Uncomplicated asthma, unspecified asthma severity J45.909 Active 120066171 Problem long term care 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 Z79.4 Active 120738236 Problem Anorexia R63.0 Active 02381008 ALLERGIES No Information ENCOUNTERS Encounter Location Date Diagnosis [facility] [address], [place] [address] Oct, [facility] [id number] [address] Oct, [facility] [id number] [place] [address] 32991- 4270 September, PTSD (post-traumatic stress disorder) F43.10 [place] [address] [place] [address] September, Low TSH level R94.6 [facility] [facility] [address] 45309- 0171 September, Other dorsalgia M54.89 [facility] [address] [id number]- 6267 September, Annual physical exam Z00.00 and Migraine without aura and without status migrainosus, not intractable G43.009 [facility] [address] [place] [id number]- 5629 September, Abnormal TSH R94.6 and Dysfunction of left eustachian tube H69.82 [facility] [address] [place] 446182 5561 Aug, [facility] [facility] [address] 24892 0711 Aug, Anorexia R63.0 [facility] [address] [id number] Aug, Dental examination Z01.20 and Xerostomia K11.7 [place] [address] 29345- 7405 Aug, Neuropathy G62.9 [facility] [facility] [address] 88687- 0121 Aug, [facility] [facility] [address] 07350- 4373 Aug, Other dorsalgia M54.89 [place] [facility] [address] [place] [id number]- 8187 Aug, Type 2 diabetes mellitus with diabetic autonomic (poly) neuropathy E11.43 ; Diabetic polyneuropathy associated with type 2 diabetes mellitus E11.42 ; Bronchitis J40 ; Gastroparesis K31.84 and Reactive depression F32.9 [facility] [id number] [place] [address] 46776 2546 Aug, PTSD (post-traumatic stress disorder) F43.10 [facility] [id number] [place] [address] 38747- 2546 Aug, Other dorsalgia M54.89 and Anorexia R63.0 [facility] [address] 91809 2546 Jul, [facility] [address] 59886 2546 Jul, Other dorsalgia M54.89 [facility] [id number] [place] [address] 97805 2546 Jul, [facility] [address] 63613 2546 Jul, [facility] [address] 54261 2546 Jul, PTSD (post-traumatic stress disorder) F43.10 [facility] [address] 02015 2546 Jul, [facility] [id number] [place] [address] 84077 2546 Jul, [facility] [id number] [place] [address] 37958 2546 Jul, [facility] [id number] [place] [address] 59883 2546 Jul, Anorexia R63.0 [facility] [id number] [place] [address] 96348 2546 Jun, [facility] [id number] [place] [address] 21562 2546 Jun, Vaginal discharge N89.8 ; Visit for gynecologic examination Z01.419 and Pelvic pressure in female R10.2 [facility] [address] 21197- 2426 Jun, [facility] [address] 70610- 9113 Jun, Other dorsalgia M54.89 [facility] [address] 57166- 6735 Jun, [facility] [address] 84158- 7163 Jun, [facility] [address] 87777- 0129 Jun, [facility] [address] 35205- 7672 May, Back pain M54.9 [facility] [address] 22225- 3018 May, Anorexia R63.0 [facility] [address] 82633- 7385 May, Other dorsalgia M54.89 [facility] [address] 19128- 9260 May, [facility] [address] 19919- 9287 May, Bronchitis J40 [facility] [address] 08214- 8968 May, Type 2 diabetes mellitus with diabetic autonomic (poly) neuropathy E11.43 ; long term care 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 Z79.4 ; Back pain M54.9 and Neuropathy G62.9 [facility] [address] 11872- 2750 May, Left breast mass N63.20 [facility] [address] 62380- 6616 May, [facility] [id number] [place] [address] 48783- 8496 Apr, Other dorsalgia M54.89 [facility] [address] 00646 2546 Apr, Anorexia R63.0 [facility] [id number] [place] [address] 19162 2546 Apr, Anorexia R63.0 [facility] [address] 87680 2549 Apr, Mass of left breast N63.20 [facility] [address] 07864 2546 Apr, [facility] [id number] [place] [address] 38851 2540 Apr, [facility] [address] 74183- 9688 Apr, Diarrhea of presumed infectious origin A09 [facility] [id number] [place] [address] 38824 2545 Apr, Encounter for immunization Z23 [facility] [address] 28267- 2549 05 Apr, 2017 [facility] [id number] [place] [address] 18598- 2540 Mar, Other dorsalgia M54.89 [facility] [id number] [place] [address] 24101 2546 Mar, [facility] [id number] [place] [address] 11304 2542 Mar, [facility] [id number] [place] [address] 55999 2546 16 Mar, 2017 Anorexia R63.0 [facility] [id number] [place] [address] 12085- 2547 Mar, [facility] [id number] [place] [address] 62621- 7049 Mar, Other dorsalgia M54.89 [facility] [address] 92852- 4250 Mar, [facility] [id number] [place] [address] 35708- 6145 Mar, Encounter for immunization Z23 [facility] [address] 17465- 7085 Feb, Anorexia R63.0 [facility] [address] 35887- 0555 Feb, Diabetes E11.9 [facility] [address] 42342- 6720 Feb, Back pain M54.9 and Diabetes E11.9 [place] [address] 85551- 5576 Feb, Diabetes E11.9 [facility] [id number] [place] [address] 93869- 6784 Feb, Neuropathy G62.9 [facility] [id number] [place] [address] 09399- 9839 Feb, Encounter for immunization Z23 ; Epigastric pain R10.13 ; Weight loss, abnormal R63.4 and Neuropathy G62.9 [facility] [id number] [place] [address] [id number] Feb, [facility] [id number] [place] [address] 63416- 7172 Feb, [facility] [id number] [place] [address] 54642- 2764 Feb, Intractable vomiting with nausea, unspecified vomiting type R11.2 [facility] [id number] [place] [address] 05654 -1812 Feb, Chronic nausea R11.0 [facility] [id number] [place] [address] 05768- 6239 Feb, Other dorsalgia M54.89 [facility] [address] 08245- 6566 Jan, [facility] [address] 93583- 2999 Jan, [facility] [address] 61302- 2036 Jan, [facility] [address] 00899- 4019 Jan, [facility] [address] 15506- 1650 Jan, Asthma exacerbation J45.901 ; Bronchitis J40 and Neuropathy G62.9 [facility] [address] 71647- 3793 Jan, Anorexia R63.0 [facility] [address] 55484- 6057 Jan, Other dorsalgia M54.89 [facility] [id number] [place] [address] 53962- 8209 Dec, [facility] [id number] [place] [address] 15745- 5640 Dec, [facility] [id number] [place] [address] 37458- 8996 15 Dec, 2016 Anorexia R63.0 [facility] [id number] [place] [address] 40411 2540 14 Dec, 2016 Primary insomnia F51.01 [facility] [id number] [place] [address] 90493- 3315 Dec, Other dorsalgia M54.89 [facility] [id number] [place] [address] 00243- 0283 Dec, [facility] [address], [place] [address]- 2413 Nov, [facility] [id number] [place] [address] 93734- 2002 Nov, [facility] [address], [place] [address]- 3261 Nov, [facility] [id number] [place] [address] 25148- 1156 Nov, History of colon polyps Z86.010 [facility] [id number] [place] [address] 62780- 5581 Nov, Weight loss R63.4 ; Nausea and vomiting, intractability of vomiting not specified, unspecified vomiting type R11.2 and Abnormal LFTs R79.89 [facility] [id number] [place] [address] 04397- 3395 Nov, [facility] [id number] [place] [address] 20281- 3726 Nov, Neuropathy G62.9 and Pain in right knee M25.561 [facility] [id number] [place] [address] 78249- 7262 Nov, Back pain M54.9 [facility] [address], [place] [address]- 9440 Nov, [facility] [id number] [place] [address] 27254- 6967 Nov, Bronchitis J40 [facility] [address], [place] [address]- 3447 Nov, Weight loss R63.4 [facility] [id number] [place] [address] 03908- 8161 Oct, Back pain M54.9 [facility] [address], [place] [address]- 0120 Oct, [facility] [id number] [place] [address] 45488- 4460 14 Oct, 2016 Back pain M54.9 [facility] [address] 28688- 1374 13 Oct, 2016 Type 2 diabetes mellitus without complications E11.9 and Bronchitis J40 [facility] [id number] [place] [address] 71036- 2370 05 Oct, 2016 [facility] [address] 09351- 5218 Oct, [facility] [id number] [place] [address] 36658- 0457 September, Gastroparesis K31.84 ; Type 2 diabetes mellitus with diabetic autonomic (poly)neuropathy E11.43 and Neuropathy G62.9 [place] [address] 90579- 4001 September, Other dorsalgia M54.89 [facility] [address] 51276- 4841 September, [facility] [address] 62827- 6040 September, [facility] [id number] [place] [address] 33330- 9545 Aug, Gastroparesis K31.84 and Radicular leg pain M54.10 [facility] [id number] [place] [address] 43691- 1083 Aug, Anorexia R63.0 [facility] [id number] [place] [address] 04012- 2833 Aug, Bronchitis J40 [facility] [id number] [place] [address] 63312- 2628 Aug, Back pain M54.9 [facility] [id number] [place] [address] 08104- 5641 Aug, Routine gynecological examination Z01.419 ; Routine screening for STI (sexually transmitted infection) Z11.3 and Yeast infection of the vagina B37.3 [facility] [id number] [place] [address] 14886- 3660 Jul, Other dorsalgia M54.89 [facility] [id number] [place] [address] 86980- 0683 Jul, Diabetes E11.9 and Gastroparesis K31.84 [facility] [address] 98067- 3007 Jun, [facility] [id number] [place] [address] 14478- 7141 Jun, Back pain M54.9 [facility] [address] 68610- 3508 14 Jun, 2016 Neuropathy G62.9 [facility] [address] [id number] 02 Jun, 2016 Encounter for dental examination Z01.20 [facility] [id number] [place] [address] 63185- 1667 Jun, Gastroparesis 536.3 and Anorexia R63.0 [facility] [id number] [place] [address] 32360- 8370 May, Other dorsalgia M54.89 [facility] [id number] [place] [address] 76043- 3250 May, Periumbilical abdominal pain R10.33 ; Weight loss R63.4 and Gastroparesis K31.84 [facility] [id number] [place] [address] 07704- 7809 May, Back pain M54.9 [facility] [id number] [place] [address] 07587- 9824 Apr, Anorexia R63.0 [facility] [address] [place] [address] 54520- 1661 Apr, Anorexia R63.0 [facility] [address] 31113- 4749 Apr, Back pain M54.9 [facility] [address] 31163- 7242 Apr, Back pain M54.9 [facility] [address] 86391- 7215 Apr, [facility] [address] 11182- 5492 Apr, Bronchitis J40 and Neuropathy G62.9 [facility] [address] 09206- 9744 Apr, Neuropathy G62.9 [facility] [address] 63179- 7135 Apr, [facility] [address] 68301- 8050 Apr, Back pain M54.9 [facility] [address] 61108- 9782 Mar, Type 2 diabetes mellitus with diabetic autonomic (poly) neuropathy E11.43 [facility] [address] 91321- 2856 Mar, Type 2 diabetes mellitus without complications E11.9 [facility] [address] 39694- 4237 Mar, Neuropathy G62.9 [facility] [id number] [place] [address] 64753- 0367 Mar, [facility] [address] 83124- 3727 Mar, Breast cancer screening Z12.39 [facility] [address] 51464- 7066 Mar, Other dorsalgia M54.89 [facility] [id number] [place] [address] 59482- 3862 Feb, [facility] [address] 64008- 0224 30 Jan, 2016 Neuropathy G62.9 ; Type 2 diabetes mellitus with diabetic autonomic (poly)neuropathy E11.43 ; Uncomplicated asthma, unspecified asthma severity J45.909 and Encounter for immunization Z23 [facility] [address] 20461- 2251 09 Jan, 2016 [facility] [address] 69685- 7628 Jan, [facility] [address] 49236- 0188 Dec, [place] [address] 66093- 7230 Dec, [facility] [facility] [id number] [place] [address] 18873- 3337 Nov, [facility] [id number] [place] [address] 62349- 3437 Nov, Back pain M54.9 [facility] [facility] [id number] [place] [address] 97131- 0812 Nov, Neuropathy G62.9 ; Mixed hyperlipidemia E78.2 ; Type 2 diabetes mellitus with diabetic autonomic (poly)neuropathy E11.43 and long term care 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 Z79.4 [facility] [id number] [place] [address] 46369- 1487 Oct, [place] [address] 59787- 4023 Oct, Other dorsalgia M54.89 [facility] [id number] [place] [address] 08627- 3454 September, Primary insomnia F51.01 [place] [address] 03314- 0411 September, [facility] [id number] [place] [address] 46464- 1420 Aug, Other dorsalgia M54.89 [facility] [id number] [place] [address] 49244- 1894 Jul, [facility] [id number] [place] [address] 44472- 9765 Jul, Other dorsalgia M54.89 [facility] [id number] [place] [address] 51903- 2048 Jul, Diabetes E11.9 ; Back pain M54.9 ; Neuropathy G62.9 and Gastroparesis K31.84 [facility] [id number] [place] [address] 63988- 7903 Jun, [facility] [id number] [place] [address] 64982- 9208 Jun, Other dorsalgia M54.89 [facility] [id number] [place] [address] 84614- 0136 May, [facility] [id number] [place] [address] 27296- 5963 May, Radicular leg pain M54.10 and Other dorsalgia M54.89 [facility] [id number] [place] [address] 56834- 6051 Apr, [facility] [id number] [place] [address] 29378- 9525 Mar, [facility] [id number] [place] [address] 38504- 3465 Mar, [facility] [id number] [place] [address] 71715- 7121 Mar, Radicular leg pain M54.10 [facility] [id number] [place] [address] 79096- 0031 Feb, [facility] [address], [place] [address]- 6053 Feb, [facility] [id number] [place] [address] 99841- 5889 Feb, [facility] [id number] [place] [address] 17767- 5804 Jan, [facility] [id number] [place] [address] 94381- 6834 Jan, IBS (irritable bowel syndrome) 564.1 [facility] [id number] [place] [address] 04526- 2906 Jan, [facility] [id number] [place] [address] 77277- 4021 Jan, [facility] [id number] [place] [address] 05259- 1664 Jan, Diabetes mellitus without mention of complication, type II or unspecified type, not stated as uncontrolled 250.00 ; Gastroparesis 536.3 and Hypoacusis 389.9 [facility] [id number] [place] [address] 90459- 5076 Jan, [facility] [id number] [place] [address] 26805- 6973 Jan, [facility] [id number] [place] [address] 52893- 2368 Dec, [facility] [id number] [place] [address] 29638- 9331 Dec, [facility] [id number] [place] [address] 97803- 0860 Dec, [facility] [id number] [place] [address] 12328- 7857 Dec, Back pain 724.5 and Gastroparesis 536.3 [facility] [id number] [place] [address] 52929- 5923 Nov, [facility] [id number] [id number] Nov, Dental examination V72.2 [facility] [address] [address] Nov, [facility] [address] [address] Nov, [facility] [id number] [place] [address] [id number]- 8480 Nov, Depressive disorder, not elsewhere classified 311 and No condition on [place] II V71.09 [facility] [id number] [place] [address] 95132- 5488 Nov, Diabetes 250.00 and Symptomatic menopausal or female climacteric states 627.2 [facility] [address] [address] Oct, [facility] [address] [address] Oct, Lumbar strain 847.2 [facility] [address] [address] Oct, Gastroparesis 536.3 and Unspecified myalgia and myositis 729.1 [facility] [address] [address] Aug, [facility] [address] [id number] [address] Aug, [facility] [address] [place] [address] Jul, [facility] [address] [address] [address] Jul, [facility] [address] [id number], [place] [address] Jul, [facility] [place] [facility] [address] [id number] [place] [address] Jul, [facility] [place] [facility] [address] [id number] [place] [address] 6381 Jul, [facility] [place] [facility] [address] [id number] [place] [address]- 2843 Jun, [facility] [place] [facility] [address] [id number] [place] [address]- 3218 Jun, [facility] [place] [facility] [address] [id number] [place] [address]- 3382 Jun, [facility] [place] [facility] [address] [id number] [place] [address]- 1775 May, [facility] [place] [facility] [address] [id number] [place] [address]- 0603 May, [facility] [place] [facility] [address] [id number] [place] [address]- 6410 Mar, [facility] [place] [facility] [address] [id number] [place] [address]- 0893 Mar, [facility] [place] [facility] [address] [id number] [place] [address]- 4891 Mar, [facility] [place] [facility] [address] [id number] [place] [address]- 0223 Mar, [facility] [place] [facility] [address] [id number] [place] [address]- 0658 Mar, [facility] [place] [facility] [address] [id number] [place] [address]- 6341 Mar, [facility] [place] [facility] [address] [id number] [place] [address]- 5085 Feb, [facility] [place] [facility] [address] [id number] [place] [address]- 2193 Feb, [facility] [place] [facility] [address] [id number] [place] [address]- 8886 Nov, [facility] [address] [address] [id number] [place] [address] Nov, [facility] [place] [facility] [address] [id number] [place] [address] Nov, [facility] [address] [id number] [place] [address] Oct, [facility] [place] [facility] [address] [id number] [place] [address] September, [facility] [address] [id number] [place] [address] Aug, [facility] [address] [id number] [place] [address] Aug, [facility] [address] [id number] [place] [address] Aug, [facility] [place] [facility] [address] [id number] [place] [address] Aug, [facility] [address] [id number] [place] [address] Aug, [facility] [place] [facility] [address] [id number] [place] [address] Aug, [facility] [place] [facility] [address] [id number] [place] [address] Aug, [facility] [place] [facility] [address] [id number] [place] [address] Aug, [facility] [place] [facility] [address] [id number] [place] [address] Jul, [facility] [place] [facility] [address] [id number] [place] [address] Jul, [facility] [place] [facility] [address] [id number] [place] [address] Jun, [facility] [place] [facility] [address] [id number], [place] [address] Jun, [facility] [address] [address] Jun, [facility] [id number] [address] Jun, 2012 [facility] [id number] [address] Jun, [facility] [id number] [address] Jun, [facility] [id number] [place] [address] Jun, [facility] [id number], [place] [address] May, [facility] [id number] [place] [address] May, [facility] [id number], [place] [address] May, [facility] [id number] [place] [address] May, [facility] [id number], [place] [address] Mar, [facility] [id number], [place] [address] Mar, [facility] [id number] [address] Jan, IMMUNIZATIONS No Known Immunizations SOCIAL HISTORY Never Assessed REASON FOR VISIT Oxycodone- 04/25 PLAN OF CARE VITAL SIGNS MEDICATIONS Medication Instructions Dosage Frequency Start Date End Date Duration Status Oxycodone-Acetaminophen 10-325 MG Orally 4 times a day 1 tablet as needed 6h Apr, 28 days Active RESULTS No Results PROCEDURES [...]
--- OUTSIDE RECORDS SUMMARY | 2018-01-27 20:20 | XMS REPORT ---
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 Active 154383287 Problem PTSD (post-traumatic stress disorder) F43.10 Active 18121022 Problem Asthma exacerbation J45.901 Active 895065282 Problem Weight loss R63.4 Active 798406964 Problem Anorexia R63.0 Active 59494720 Problem Primary insomnia F51.01 Active 4410494 Problem History of colon polyps Z86.010 Active 502876037 Problem Neuropathy G62.9 Active 737259310 Problem Diabetes E11.9 Active 56869063 Problem Depressive disorder, not elsewhere classified 311 Active 60640163 Problem Gastroparesis K31.84 Active 408501831 Problem Back pain M54.9 Active 873752844 Problem Mixed hyperlipidemia E78.2 Active 938414181 ALLERGIES No Information ENCOUNTERS Encounter Location Date Diagnosis [facility] [id number] [id number] Aug, [facility] [address] [address] 5620 Aug, [facility] [id number] [place] [address] 06070- 0049 Aug, [facility] [address] [address] 0164 Aug, [facility] [id number] [place] [address] 47737- 4121 Jul, [facility] [address] [place] [address] 23184- 6576 Jul, Other dorsalgia M54.89 [facility] [id number] [place] [address] 94499- 6386 Jul, [facility] [id number] [place] [address] 20762 2546 Jul, [facility] [id number] [place] [address] 85299 2546 Jul, PTSD (post-traumatic stress disorder) F43.10 [facility] [id number] [place] [address] 21923- 2896 Jul, [facility] [id number] [place] [address] 98692- 8316 Jul, [facility] [id number] [place] [address] 56835- 6546 Jul, [facility] [id number] [place] [address] 81504 2546 Jul, Anorexia R63.0 [facility] [id number] [place] [address] 54567- 3776 Jun, [facility] [id number] [place] [address] 19859- 1976 Jun, Vaginal discharge N89.8 ; Visit for gynecologic examination Z01.419 and Pelvic pressure in female R10.2 [facility] [address] [place] [address] 70010 2546 Jun, [facility] [id number] [place] [address] 34419- 8456 Jun, Other dorsalgia M54.89 [facility] [id number] [place] [address] 21078- 9006 16 Jun, 2017 [facility] [id number] [place] [address] 71784- 2595 Jun, [facility] [address] 26603- 1592 Jun, [facility] [address] 59262- 5676 May, Back pain M54.9 [facility] [address] 72156- 8272 May, Anorexia R63.0 [facility] [address] 18641- 6353 May, Other dorsalgia M54.89 [facility] [address] 31166- 3657 May, [facility] [address] 85284- 0202 May, Bronchitis J40 [facility] [address] 22403- 8054 May, Type 2 diabetes mellitus with diabetic autonomic (poly) neuropathy E11.43 ; long-term 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 Z79.4 ; Back pain M54.9 and Neuropathy G62.9 [facility] [id number] [place] [address] 03541- 5028 May, Left breast mass N63.20 [facility] [address] 01126- 2686 May, [facility] [id number] [place] [address] 94166- 1290 Apr, Other dorsalgia M54.89 [facility] [address] 36126- 0436 Apr, Anorexia R63.0 [facility] [address] 75339- 1455 Apr, Anorexia R63.0 [facility] [address] [place] [address]- 4991 Apr, Mass of left breast N63.20 [facility] [id number] [place] [address] 75890- 4928 Apr, [facility] [address] 50037- 4116 Apr, [facility] [address] 65463- 9846 Apr, Diarrhea of presumed infectious origin A09 [facility] [address] 98478- 5132 Apr, Encounter for immunization Z23 [facility] [address] 17055- 5211 Apr, [facility] [address] 72334- 3024 Mar, Other dorsalgia M54.89 [facility] [id number] [place] [address] 42869- 9729 Mar, [facility] [id number] [place] [address] 71225- 7056 Mar, [facility] [id number] [place] [address] 77336- 3609 Mar, Anorexia R63.0 [facility] [id number] [place] [address] 77861- 2428 Mar, [facility] [id number] [place] [address] 80058- 2544 Mar, Other dorsalgia M54.89 [facility] [id number] [place] [address] 37965- 4422 Mar, [facility] [id number] [place] [address] 14968- 9672 Mar, Encounter for immunization Z23 [facility] [address] 73175- 9282 Feb, Anorexia R63.0 [facility] [id number] [place] [address] 66192- 1747 Feb, Diabetes E11.9 [facility] [id number] [place] [address] 57613- 0842 Feb, Back pain M54.9 and Diabetes E11.9 [facility] [address] 61738- 7431 Feb, Diabetes E11.9 [facility] [address] 40300- 8035 Feb, Neuropathy G62.9 [facility] [address] 41783- 9004 Feb, Encounter for immunization Z23 ; Epigastric pain R10.13 ; Weight loss, abnormal R63.4 and Neuropathy G62.9 [facility] [place] [address] [id number] Feb, [facility] [address] 66542- 2730 Feb, [facility] [address] 42284- 4499 Feb, Intractable vomiting with nausea, unspecified vomiting type R11.2 [facility] [id number] [place] [address] 64931 -2313 Feb, Chronic nausea R11.0 [facility] [id number] [place] [address] 15315- 2422 Feb, Other dorsalgia M54.89 [facility] [address] 75367- 4529 Jan, [facility] [id number] [place] [address] 03599- 9520 Jan, [facility] [address] 59154- 6090 Jan, [facility] [id number] [place] [address] 10970 2546 Jan, [facility] [id number] [place] [address] 19415 2546 Jan, Asthma exacerbation J45.901 ; Bronchitis J40 and Neuropathy G62.9 [facility] [address] 08054 2546 Jan, Anorexia R63.0 [facility] [id number] [place] [address] 10401- 2546 Jan, Other dorsalgia M54.89 [facility] [id number] [place] [address] 27923- 6416 Dec, [facility] [id number] [place] [address] 13659- 1976 Dec, [facility] [id number] [place] [address] 36199 2546 Dec, Anorexia R63.0 [facility] [id number] [place] [address] 92982- 8546 Dec, Primary insomnia F51.01 [facility] [id number] [place] [address] 89542 2546 Dec, Other dorsalgia M54.89 [facility] [id number] [place] [address] 57789 2546 Dec, [facility] [id number] [place] [address] 13498 2546 Nov, [facility] [id number] [place] [address] 83282 2546 Nov, [facility] [id number] [place] [address] 76638 2546 Nov, [facility] [id number] [place] [address] 25196 1376 Nov, History of colon polyps Z86.010 [facility] [id number] [place] [address] 61928- 3626 Nov, Weight loss R63.4 ; Nausea and vomiting, intractability of vomiting not specified, unspecified vomiting type R11.2 and Abnormal LFTs R79.89 [facility] [id number] [place] [address] 79098- 2625 Nov, [facility] [address] 46604- 7171 Nov, Neuropathy G62.9 and Pain in right knee M25.561 [address] 38809- 7725 Nov, Back pain M54.9 [facility] [id number] [place] [address] 29493- 0611 10 Nov, 2016 [facility] [address] 04965- 4363 Nov, Bronchitis J40 [facility] [id number] [place] [address] 87141- 1888 03 Nov, 2016 Weight loss R63.4 [facility] [id number] [place] [address] 83002- 7685 Oct, Back pain M54.9 [facility] [id number] [place] [address] 52048- 2096 16 Oct, 2016 [facility] [id number] [place] [address] 94884- 3325 14 Oct, 2016 Back pain M54.9 [facility] [address] 67801- 2396 13 Oct, 2016 Type 2 diabetes mellitus without complications E11.9 and Bronchitis J40 [facility] [id number] [place] [address] 74580- 4105 05 Oct, 2016 [facility] [id number] [place] [address] 19140- 5872 Oct, [address] [place] [id number] [place] [address] 51803- 6825 September, Gastroparesis K31.84 ; Type 2 diabetes mellitus with diabetic autonomic (poly)neuropathy E11.43 and Neuropathy G62.9 [address] [place] [id number] [place] [address] 45691- 7012 September, Other dorsalgia M54.89 [address] [place] [id number] [place] [address] 12110- 1739 September, [address] [id number] [place] [address] 80557- 8993 September, [address] [place] [id number] [place] [address] 85079- 0606 Aug, Gastroparesis K31.84 and Radicular leg pain M54.10 [address] [id number] [place] [address] 88490- 4787 Aug, Anorexia R63.0 [place] [id number] [place] [address] 96617- 0947 Aug, Bronchitis J40 [address] [place] [id number] [place] [address] 96075- 0632 Aug, Back pain M54.9 [address] [place] [id number] [place] [address] 08973- 3154 Aug, Routine gynecological examination Z01.419 ; Routine screening for STI (sexually transmitted infection) Z11.3 and Yeast infection of the vagina B37.3 [place] [id number] [place] [address] 57564- 8954 Jul, Other dorsalgia M54.89 [place] [id number] [place] [address] 93312- 1866 Jul, Diabetes E11.9 and Gastroparesis K31.84 [address] [address] [place] [address] 54376- 6812 Jun, [facility] [address] 00858- 6514 24 Jun, 2016 Back pain M54.9 [facility] [address] 98023- 6613 14 Jun, 2016 Neuropathy G62.9 [facility] [address] [id number] 02 Jun, 2016 Encounter for dental examination Z01.20 [facility] [address] 25049- 5818 Jun, Gastroparesis 536.3 and Anorexia R63.0 [facility] [address] 81490- 8663 May, Other dorsalgia M54.89 [facility] [address] 72774- 3099 May, Periumbilical abdominal pain R10.33 ; Weight loss R63.4 and Gastroparesis K31.84 [facility] [address] 87394- 9213 May, Back pain M54.9 [facility] [address] 30144- 3779 Apr, Anorexia R63.0 [facility] [address] 00227- 8921 Apr, Anorexia R63.0 [facility] [address] 04899- 2304 Apr, Back pain M54.9 [facility] [address] 17657- 7492 Apr, Back pain M54.9 [facility] [address] 66203- 1003 Apr, [facility] [id number] [place] [address] 51523- 0817 Apr, Bronchitis J40 and Neuropathy G62.9 [facility] [address] 94562- 4152 Apr, Neuropathy G62.9 [address] [address] 76743- 5957 Apr, [place] [address] 73619- 1055 Apr, Back pain M54.9 [place] [address] 83269- 6959 Mar, Type 2 diabetes mellitus with diabetic autonomic (poly) neuropathy E11.43 [place] [address] 58830- 9176 Mar, Type 2 diabetes mellitus without complications E11.9 [place] [address] 15090- 0644 Mar, Neuropathy G62.9 [place] [address] 35101- 7691 Mar, [place] [id number] [place] [address] 47168- 4034 Mar, Breast cancer screening Z12.39 [place] [address] 52399- 7526 Mar, Other dorsalgia M54.89 [place] [id number] [place] [address] 54797- 1089 Feb, [place] [address] 37074- 8663 Jan, Neuropathy G62.9 ; Type 2 diabetes mellitus with diabetic autonomic (poly)neuropathy E11.43 ; Uncomplicated asthma, unspecified asthma severity J45.909 and Encounter for immunization Z23 [place] [address] 52098- 3395 Jan, [facility] [address] [address]- 7113 Jan, [facility] [id number] [place] [address] 61271- 5042 Dec, [facility] [address] [place] [address] 82581- 5294 Dec, [facility] [id number] [place] [address] 29296- 6251 Nov, [facility] [address] [place] [address] 43582- 4753 Nov, Back pain M54.9 [facility] [id number] [place] [address] 52006- 2715 Nov, Neuropathy G62.9 ; Mixed hyperlipidemia E78.2 ; Type 2 diabetes mellitus with diabetic autonomic (poly)neuropathy E11.43 and long-term current use of insulin Z79.4 [facility] [address] [address]- 9546 Oct, [facility] [id number] [place] [address] 74980- 2492 Oct, Other dorsalgia M54.89 [facility] [id number] [place] [address] 28647- 3310 September, Primary insomnia F51.01 [facility] [address] [address]- 8595 September, [facility] [address] [address]- 9944 Aug, Other dorsalgia M54.89 [facility] [address] [address]- 2935 Jul, [facility] [address] [address]- 0504 Jul, Other dorsalgia M54.89 [facility] [id number] [place] [address] 69540- 7777 Jul, Diabetes E11.9 ; Back pain M54.9 ; Neuropathy G62.9 and Gastroparesis K31.84 [facility] [id number] [place] [address] 11978- 8058 Jun, [facility] [address] 87977- 7192 Jun, Other dorsalgia M54.89 [facility] [id number] [place] [address] 92621- 8366 May, [facility] [address] 36757- 6803 May, Radicular leg pain M54.10 and Other dorsalgia M54.89 [facility] [id number] [place] [address] 78955- 5873 Apr, [facility] [id number] [place] [address] 36150- 9233 Mar, [facility] [id number] [place] [address] 34035- 6287 Mar, [facility] [id number] [place] [address] 31520- 0095 Mar, Radicular leg pain M54.10 [facility] [id number] [place] [address] 71061- 4801 Feb, [facility] [id number] [place] [address] 39659- 4867 Feb, [facility] [id number] [place] [address] 60333- 3424 Feb, [facility] [id number] [place] [address] 98326- 4826 Jan, [facility] [address] 93423- 5240 Jan, IBS (irritable bowel syndrome) 564.1 [facility] [address] [place] [address] 38393- 3823 Jan, [facility] [id number] [place] [address] 58417- 7133 Jan, [facility] [id number] [place] [address] 16984- 4013 Jan, Diabetes mellitus without mention of complication, type II or unspecified type, not stated as uncontrolled 250.00 ; Gastroparesis 536.3 and Hypoacusis 389.9 [facility] [id number] [place] [address] 06528- 5055 Jan, [facility] [id number] [place] [address] 88765- 9067 Jan, [facility] [id number] [place] [address] 86010- 9536 Dec, [facility] [id number] [place] [address] 06258- 9960 Dec, [facility] [id number] [place] [address] 24306- 9251 Dec, [facility] [id number] [place] [address] 47272- 5268 Dec, Back pain 724.5 and Gastroparesis 536.3 [facility] [address] [place] [address] 62130- 4019 Nov, [facility] [id number] [id number] Nov, Dental examination V72.2 [facility] [address] [address] Nov, [facility] [id number] [address] Nov, [facility] [id number] [id number] Nov, Depressive disorder, not elsewhere classified 311 and No condition on [place] II V71.09 [facility] [id number] [address] Nov, Diabetes 250.00 and Symptomatic menopausal or female climacteric states 627.2 [facility] [id number] [place] [address] Oct, [facility] [id number] [place] [address]- [address] Oct, Lumbar strain 847.2 [facility] [id number] [place] [address]- [address]305 Oct, Gastroparesis 536.3 and Unspecified myalgia and myositis 729.1 [facility] [id number] [place] [address]- [address] Aug, [facility] [id number] [address] Aug, [facility] [id number] [address] Jul, [facility] [id number] [address] Jul, [facility] [id number] [address] Jul, [facility] [id number], [place] [address] Jul, [facility] [id number] [address] Jul, [facility] [id number] [address] Jun, [facility] [id number] [address] Jun, [facility] [place] [facility] [address] [id number] [place] [address] Jun, [facility] [place] [facility] [address] [id number] [place] [address] May, [facility] [place] [facility] [address] [id number] [place] [address] May, [facility] [place] [facility] [address] [id number] [place] [address] Mar, [facility] [place] [facility] [address] [id number] [place] [address] Mar, [facility] [place] [facility] [address] [id number] [place] [address] 69[address] Mar, [facility] [place] [facility] [address] [id number] [place] [address] Mar, [facility] [place] [facility] [address] [id number] [place] [address] Mar, [facility] [place] [facility] [address] [id number] [place] [address] Mar, [facility] [place] [facility] [address] [id number], [place] [address] Feb, [facility] [place] [facility] [address] [id number], [place] [address] Feb, [facility] [place] [facility] [address] [id number], [place] [address] Nov, [facility] [place] [facility] [address] [id number] [place] [address] Nov, [facility] [place] [facility] [address] [id number], [place] [address] Nov, [facility] [place] [facility] [address] [id number], [place] [address] 260[address] Oct, [facility] [place] [facility] [address] [id number], [place] [address] September, [facility] [address] [id number] [place] [address] Aug, [facility] [address] [id number] [place] [address]- [address] 15 Aug, 2012 [facility] [address] [facility] [id number] [place] [address] Aug, [facility] [address] [id number] [place] [address] Aug, [facility] [address] [id number] [place] [address] Aug, [facility] [address] [facility] [id number] [place] [address] Aug, [facility] [address] [id number] [place] [address] Aug, [facility] [address] [id number] [place] [address] Aug, [facility] [address] [id number] [place] [address] Jul, [facility] [address] [id number] [place] [address] Jul, [facility] [address] [id number] [place] [address] Jun, [facility] [place] [facility] [address] [id number] [place] [address] Jun, [facility] [place] [facility] [address] [id number] [place] [address] Jun, [facility] [place] [facility] [address] [id number], [place] [address] Jun, [facility] [address] [facility] [id number], [place] [address] Jun, [facility] [address] [facility] [id number], [place] [address] Jun, [facility] [address] [id number] [address] Jun, [facility] [address] [id number], [place] [address] May, [facility] [id number], [place] [address] May, [facility] [id number], [place] [address] May, [facility] [id number], [place] [address] May, [facility] [id number], [place] [address] Mar, [facility] [address] [id number], [place] [address] Mar, [facility] [address] [id number], [place] [address] Jan, IMMUNIZATIONS No Known Immunizations SOCIAL HISTORY Never Assessed REASON FOR VISIT Lab (walk-in) PLAN OF CARE VITAL SIGNS MEDICATIONS Unknown Medications RESULTS Name Result Date Reference Range CORTISOL, SERUM-AM 2016-12-13 Cortisol - AM 22.7 6.2-19.4 CMP 2016-12-13 Glucose, Serum 367 65-99 BUN 12 6-24 Creatinine, Serum 0.77 0.57-1.00 eGFR If NonAfricn Am 94 >59 eGFR If Africn Am 108 >59 BUN/Creatinine Ratio 16 9-23 Sodium, Serum 136 134-144 Potassium, Serum 4.7 3.5-5.2 Chloride, Serum 96 96-106 Carbon Dioxide, Total 22 18-29 Calcium, Serum 9.6 8.7-10.2 Protein, Total, Serum 6.8 6.0-8.5 Albumin, Serum 4.3 3.5-5.5 Globulin, Total 2.5 1.5-4.5 A/G Ratio 1.7 1.2-2.2 Bilirubin, Total <0.2 0.0-1.2 Alkaline Phosphatase, S 139 39-117 AST (SGOT) 24 0-40 ALT (SGPT) 24 0-32 TSH W/ FREE T4 2016-12-13 TSH 0.493 0.450-4.500 T4,Free(Direct) 1.23 0.82-1.77 PROCEDURES Procedure Date Ordered Result Body Site LAB [facility] December 13, 2016 VENIPUNCT, ROUTINE* December 13, 2016 INSTRUCTIONS MEDICATIONS ADMINISTERED No Known Medications [...] vomitting-[facility] 03/05/17 Hospitalization History hospital stay at [facility] for stomach issues 2016
--- OUTSIDE RECORDS SUMMARY | 2018-01-27 20:21 | XMS REPORT ---
Author Author HORACE HIGGINS [facility] Address [address] [place] [address] Care Team Providers Care Straight Edger Name Role Phone HORACE HIGGINS Unavailable PROBLEMS Type Condition ICD9-CM Code IAX55-GD Code Onset Dates Condition Status SNOMED Code Problem Weight loss R63.4 Active 160408055 Problem Primary insomnia F51.01 Active 1860574 Problem History of colon polyps Z86.010 Active 545224363 Problem Annual physical exam Z00.00 Active 780334095 Problem Migraine without aura and without status migrainosus, not intractable G43.009 Active 230215008 Problem Reactive depression F32.9 Active 56012008 Problem Asthma exacerbation J45.901 Active 242146814 Problem PTSD (post-traumatic stress disorder) F43.10 Active 96457502 Problem Diabetic polyneuropathy associated with type 2 diabetes mellitus E11.42 Active 11092789 Problem Neuropathy G62.9 Active 183867069 Problem Diabetes E11.9 Active 73553339 Problem Low TSH level R94.6 Active 006061372 Problem Back pain M54.9 Active 534647970 Problem Mixed hyperlipidemia E78.2 Active 427690469 Problem Type 2 diabetes mellitus with diabetic autonomic (poly)neuropathy E11.43 Active 37882719 Problem Gastroparesis K31.84 Active 088320368 Problem Uncomplicated asthma, unspecified asthma severity J45.909 Active 312857615 Problem 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 Active 392760641 Problem Anorexia R63.0 Active 03509247 ALLERGIES No Information ENCOUNTERS Encounter Location Date Diagnosis [facility] [id number] [address] September, [facility] [id number] [address] September, [facility] [id number] [place] [address] 54032- 2294 September, Low TSH level R94.6 [place] [address] 113919- 9338 September, Other dorsalgia M54.89 [place] [address] [id number]- [address]757 September, Annual physical exam Z00.00 and Migraine without aura and without status migrainosus, not intractable G43.009 [place] [address] [id number]- [address]53 September, Abnormal TSH R94.6 and Dysfunction of left eustachian tube H69.82 [place] [address] 0866 Aug, [place] [address] 40718- 229 Aug, Anorexia R63.0 [facility] [address] [id number] Aug, Dental examination Z01.20 and Xerostomia K11.7 [place] [address] 38134- 9812 Aug, Neuropathy G62.9 [place] [address] 49660- 2882 Aug, [place] [address] 89728- 8863 Aug, Other dorsalgia M54.89 [place] [address] 48838- 2741 Aug, Type 2 diabetes mellitus with diabetic autonomic (poly) neuropathy E11.43 ; Diabetic polyneuropathy associated with type 2 diabetes mellitus E11.42 ; Bronchitis J40 ; Gastroparesis K31.84 and Reactive depression F32.9 [place] [address] 78116- 4335 Aug, PTSD (post-traumatic stress disorder) F43.10 [facility] [id number] [address] 2546 Aug, Other dorsalgia M54.89 and Anorexia R63.0 [facility] [id number] [place] [address] 59345 2546 Jul, [facility] [id number] [place] [address] 58024 2546 Jul, Other dorsalgia M54.89 [facility] [id number] [place] [address] 62007 2546 Jul, [facility] [id number] [place] [address] 35471 2546 Jul, [facility] [id number] [place] [address] 70698 2546 Jul, PTSD (post-traumatic stress disorder) F43.10 [facility] [id number] [place] [address] 31650 2546 Jul, [facility] [id number] [place] [address] 41121 2546 Jul, [facility] [id number] [place] [address] 86449 2546 Jul, [facility] [id number] [place] [address] 71532 2546 Jul, Anorexia R63.0 [facility] [id number] [place] [address] 70682 2546 Jun, [facility] [id number] [place] [address] 13250 2546 Jun, Vaginal discharge N89.8 ; Visit for gynecologic examination Z01.419 and Pelvic pressure in female R10.2 [facility] [id number] [address] 2546 Jun, [facility] [id number] [place] [address] 63857- 1038 Jun, Other dorsalgia M54.89 [facility] [id number] [place] [address] 36669- 6266 Jun, [facility] [id number] [place] [address] 32466- 9882 Jun, [facility] [address] 06619- 8384 Jun, [facility] [address] 25760- 4324 May, Back pain M54.9 [facility] [address] 07605- 6790 May, Anorexia R63.0 [facility] [address] 86955- 3894 May, Other dorsalgia M54.89 [facility] [id number] [place] [address] 67880- 9291 May, [facility] [address] 34799- 4500 May, Bronchitis J40 [facility] [id number] [place] [address] 22855- 8219 May, Type 2 diabetes mellitus with diabetic autonomic (poly) neuropathy E11.43 ; 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 ; Back pain M54.9 and Neuropathy G62.9 [facility] [id number] [place] [address] 58969- 0131 May, Left breast mass N63.20 [facility] [id number] [place] [address] 73118- 4964 May, [facility] [id number] [place] [address] 72013- 6408 Apr, Other dorsalgia M54.89 [facility] [id number] [place] [address] 26824- 5975 Apr, Anorexia R63.0 [facility] [address] 52848- 9796 Apr, Anorexia R63.0 [facility] [id number] [place] [address] 98826- 9784 Apr, Mass of left breast N63.20 [facility] [address] 46296- 0479 Apr, [facility] [address] 52556- 3181 Apr, [facility] [address] 71658- 2229 Apr, Diarrhea of presumed infectious origin A09 [facility] [address] 80494- 7081 Apr, Encounter for immunization Z23 [facility] [address] 38581- 1334 Apr, [facility] [address] 88605- 8145 Mar, Other dorsalgia M54.89 [facility] [id number] [place] [address] 38361- 0476 Mar, [facility] [id number] [place] [address] 10824- 6393 Mar, [facility] [id number] [place] [address] 81428 2549 Mar, Anorexia R63.0 [facility] [address] 86729- 7206 Mar, [facility] [id number] [place] [address] 94984- 5319 Mar, Other dorsalgia M54.89 [facility] [address] [place] [address]- 9391 Mar, [facility] [id number] [place] [address] 00957- 9493 Mar, Encounter for immunization Z23 [facility] [id number] [place] [address] 18533- 5117 Feb, Anorexia R63.0 [facility] [address] 42639- 3614 Feb, Diabetes E11.9 [facility] [address] 46703- 9336 Feb, Back pain M54.9 and Diabetes E11.9 [facility] [id number] [place] [address] 00976- 4947 Feb, Diabetes E11.9 [facility] [id number] [place] [address] 50855- 3469 Feb, Neuropathy G62.9 [facility] [id number] [place] [address] 61881- 4897 Feb, Encounter for immunization Z23 ; Epigastric pain R10.13 ; Weight loss, abnormal R63.4 and Neuropathy G62.9 [facility] [id number] [place] [address] [id number] Feb, [facility] [id number] [place] [address] 46344- 2183 Feb, [facility] [id number] [place] [address] 35188- 5879 Feb, Intractable vomiting with nausea, unspecified vomiting type R11.2 [facility] [id number] [place] [address] 55622 -9090 Feb, Chronic nausea R11.0 [facility] [id number] [place] [address] 29164- 1689 Feb, Other dorsalgia M54.89 [facility] [address] [id number] [address] 2546 Jan, [facility] [id number] [place] [address] 72078 2546 Jan, [facility] [id number] [place] [address] 44335 2546 Jan, [facility] [id number] [place] [address] 50292 2546 Jan, [facility] [id number] [place] [address] 41947 2546 Jan, Asthma exacerbation J45.901 ; Bronchitis J40 and Neuropathy G62.9 [facility] [id number] [place] [address] 90289 2546 Jan, Anorexia R63.0 [facility] [id number] [place] [address] 35977 2546 Jan, Other dorsalgia M54.89 [facility] [id number] [place] [address] 82273 2546 Dec, [facility] [id number] [place] [address] 32599 2546 Dec, [facility] [id number] [place] [address] 25829 2546 Dec, Anorexia R63.0 [facility] [id number] [place] [address] 14405 2546 14 Dec, 2016 Primary insomnia F51.01 [facility] [id number] [place] [address] 07795 2546 Dec, Other dorsalgia M54.89 [facility] [id number] [place] [address] 30163 2546 Dec, [facility] [id number] [place] [address] 80649 2546 Nov, [facility] [id number] [place] [address] 29103- 2868 Nov, [facility] [id number] [place] [address] 69939- 8825 Nov, [facility] [address] 19589- 0739 Nov, History of colon polyps Z86.010 [facility] [address] 13940- 4192 Nov, Weight loss R63.4 ; Nausea and vomiting, intractability of vomiting not specified, unspecified vomiting type R11.2 and Abnormal LFTs R79.89 [facility] [address] 01614- 8622 Nov, [facility] [address] 54388- 6393 Nov, Neuropathy G62.9 and Pain in right knee M25.561 [facility] [address] 18057- 1214 Nov, Back pain M54.9 [facility] [address] 51218- 0969 Nov, [facility] [address] 14573- 5491 Nov, Bronchitis J40 [facility] [id number] [place] [address] 46636- 3859 Nov, Weight loss R63.4 [facility] [id number] [place] [address] 20380- 0620 Oct, Back pain M54.9 [facility] [address] 69183- 2102 Oct, [facility] [address] 91656- 7096 14 Oct, 2016 Back pain M54.9 [facility] [address] [place] [address]- 7723 Oct, Type 2 diabetes mellitus without complications E11.9 and Bronchitis J40 [place] [address] 61401- 1679 Oct, [facility] [address] 97880- 0136 Oct, [place] [address] 54694- 6098 September, Gastroparesis K31.84 ; Type 2 diabetes mellitus with diabetic autonomic (poly)neuropathy E11.43 and Neuropathy G62.9 [place] [address] 79765- 9056 September, Other dorsalgia M54.89 [place] [address] 98107- 5838 September, [place] [address] 41556- 2747 September, [place] [address] 60324- 2216 Aug, Gastroparesis K31.84 and Radicular leg pain M54.10 [place] [id number] [place] [address] 61948- 3395 Aug, Anorexia R63.0 [place] [address] 18300- 3354 Aug, Bronchitis J40 [place] [id number] [place] [address] 74658- 4398 Aug, Back pain M54.9 [place] [address] 89778- 5757 Aug, Routine gynecological examination Z01.419 ; Routine screening for STI (sexually transmitted infection) Z11.3 and Yeast infection of the vagina B37.3 [place] [address] 64044- 0602 Jul, Other dorsalgia M54.89 [facility] [id number] [place] [address] 62041- 3252 Jul, Diabetes E11.9 and Gastroparesis K31.84 [facility] [id number] [place] [address] 60904- 7341 Jun, [facility] [address] 10798- 5494 Jun, Back pain M54.9 [facility] [id number] [place] [address] 90618- 0637 Jun, Neuropathy G62.9 [facility] [address] [id number] 02 Jun, 2016 Encounter for dental examination Z01.20 [facility] [address] 99060- 6773 Jun, Gastroparesis 536.3 and Anorexia R63.0 [facility] [id number] [place] [address] 42175- 3760 May, Other dorsalgia M54.89 [facility] [id number] [place] [address] 22580- 6693 May, Periumbilical abdominal pain R10.33 ; Weight loss R63.4 and Gastroparesis K31.84 [facility] [id number] [place] [address] 26390- 9316 May, Back pain M54.9 [facility] [id number] [place] [address] 64679- 1524 Apr, Anorexia R63.0 [facility] [address] 97951- 0065 Apr, Anorexia R63.0 [facility] [id number] [place] [address] 24175- 7421 Apr, Back pain M54.9 [facility] [id number] [place] [address] 16557- 1576 Apr, Back pain M54.9 [facility] [id number] [place] [address] 82555- 1976 Apr, [facility] [id number] [place] [address] 39181- 4656 Apr, Bronchitis J40 and Neuropathy G62.9 [facility] [id number] [place] [address] 68533- 0577 Apr, Neuropathy G62.9 [facility] [address] 80108- 8856 Apr, [facility] [id number] [place] [address] 99313- 6254 Apr, Back pain M54.9 [facility] [id number] [place] [address] 73889- 6338 Mar, Type 2 diabetes mellitus with diabetic autonomic (poly) neuropathy E11.43 [facility] [id number] [place] [address] 72820- 4133 Mar, Type 2 diabetes mellitus without complications E11.9 [facility] [id number] [place] [address] 35623- 2287 Mar, Neuropathy G62.9 [facility] [id number] [place] [address] 26132- 9905 Mar, [facility] [id number] [place] [address] 81182- 2028 Mar, Breast cancer screening Z12.39 [facility] [id number] [place] [address] 68111- 6072 Mar, Other dorsalgia M54.89 [facility] [id number] [place] [address] 29502- 2462 Feb, [facility] [address] [place] [address]- 4127 30 Jan, 2016 Neuropathy G62.9 ; Type 2 diabetes mellitus with diabetic autonomic (poly)neuropathy E11.43 ; Uncomplicated asthma, unspecified asthma severity J45.909 and Encounter for immunization Z23 [facility] [id number] [place] [address] 43752- 8774 09 Jan, 2016 [facility] [id number] [place] [address] 72865- 8883 Jan, [facility] [id number] [place] [address] 21078- 2947 Dec, [facility] [id number] [place] [address] 75072- 8241 Dec, [facility] [id number] [place] [address] 86810- 8098 Nov, [facility] [id number] [place] [address] 58683- 3601 Nov, Back pain M54.9 [facility] [id number] [place] [address] 97344- 0478 Nov, Neuropathy G62.9 ; Mixed hyperlipidemia E78.2 ; Type 2 diabetes mellitus with diabetic autonomic (poly)neuropathy E11.43 and 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 [facility] [id number] [place] [address] 36902- 7858 Oct, [facility] [id number] [place] [address] 50660- 6333 Oct, Other dorsalgia M54.89 [facility] [id number] [place] [address] 62183- 6745 September, Primary insomnia F51.01 [facility] [id number] [place] [address] 86069- 1467 September, [facility] [id number] [place] [address] 99148- 5898 Aug, Other dorsalgia M54.89 [facility] [id number] [place] [address] 32518- 1378 Jul, [facility] [id number] [place] [address] 54956- 0476 Jul, Other dorsalgia M54.89 [facility] [id number] [place] [address] 85411- 4974 Jul, Diabetes E11.9 ; Back pain M54.9 ; Neuropathy G62.9 and Gastroparesis K31.84 [facility] [id number] [place] [address] 49343- 7727 Jun, [facility] [address] 87586- 3133 Jun, Other dorsalgia M54.89 [facility] [id number] [place] [address] 88382- 1708 May, [facility] [id number] [place] [address] 25654- 2205 May, Radicular leg pain M54.10 and Other dorsalgia M54.89 [facility] [id number] [place] [address] 56973- 1618 Apr, [facility] [id number] [place] [address] 49424- 9649 Mar, [facility] [id number] [place] [address] 28609- 0286 Mar, [facility] [id number] [place] [address] 34872- 8911 Mar, Radicular leg pain M54.10 [facility] [id number] [place] [address] 40191- 3374 Feb, [facility] [id number] [place] [address] 35104- 8590 Feb, [facility] [id number] [place] [address] 34325- 8438 Feb, [facility] [id number] [place] [address] 00960- 8946 Jan, [facility] [id number] [place] [address] 17471- 1365 Jan, IBS (irritable bowel syndrome) 564.1 [facility] [id number] [place] [address] 65593- 7639 Jan, [facility] [id number] [place] [address] 91734- 5714 Jan, [facility] [id number] [place] [address] 91074- 0741 Jan, Diabetes mellitus without mention of complication, type II or unspecified type, not stated as uncontrolled 250.00 ; Gastroparesis 536.3 and Hypoacusis 389.9 [facility] [id number] [place] [address] 36067- 0637 Jan, [facility] [id number] [place] [address] 46971- 5461 Jan, [facility] [id number] [place] [address] 25806- 5362 Dec, [facility] [id number] [place] [address] 37108- 1707 Dec, [facility] [id number] [place] [address] 17179- 4407 Dec, [facility] [id number] [place] [address] 50919- 1786 Dec, Back pain 724.5 and Gastroparesis 536.3 [facility] [id number] [place] [address] 73150- 2027 Nov, [facility] [id number] [place] [address] [id number] Nov, Dental examination V72.2 [facility] [id number] [address] Nov, [facility] [id number] [place] [address] 47498- 5872 Nov, [facility] [id number] [place] [address] 11702- 6980 Nov, Depressive disorder, not elsewhere classified 311 and No condition on [place] V71.09 [facility] [id number] [place] [address] 14873- 7875 Nov, Diabetes 250.00 and Symptomatic menopausal or female climacteric states 627.2 [facility] [id number] [place] [address] 46080- 3294 Oct, [facility] [id number] [place] [address] 72158- 2918 Oct, Lumbar strain 847.2 [facility] [id number] [place] [address] 46492- 9579 Oct, Gastroparesis 536.3 and Unspecified myalgia and myositis 729.1 [facility] [id number] [address] 14[address] Aug, [facility] [id number] [address]40 Aug, [facility] [id number] [address] Jul, [facility] [id number] [address] Jul, [facility] [id number] [place] [address] 21673- 2141 Jul, [facility] [id number] [address]01 Jul, [facility] [id number] [place] [address] 74993- 7543 Jul, [facility] [place] [facility] [address] [id number] [place] [address]- 8117 Jun, [facility] [place] [facility] [address] [id number] [place] [address]- 4047 Jun, [facility] [place] [facility] [address] [id number] [place] [address]- 4846 Jun, [facility] [place] [facility] [address] [id number] [place] [address]- 9460 May, [facility] [place] [facility] [address] [id number] [place] [address]- 4510 May, [facility] [place] [facility] [address] [id number] [place] [address]- 5420 Mar, [facility] [place] [facility] [address] [id number] [place] [address]- 2645 Mar, [facility] [place] [facility] [address] [id number] [place] [address] 1894 Mar, [facility] [place] [facility] [address] [id number] [place] [address]- 5916 Mar, [facility] [place] [facility] [address] [facility] [id number] [place] [address]- 8781 Mar, [facility] [place] [facility] [address] [id number] [place] [address]- 4569 Mar, [facility] [place] [facility] [address] [id number] [place] [address]- 1078 Feb, [facility] [place] [facility] [address] [id number] [place] [address]- 4179 Feb, [facility] [place] [facility] [address] [id number] [place] [address] Nov, [facility] [place] [facility] [address] [id number] [place] [address]- 6589 Nov, [facility] [place] [facility] [address] [id number] [place] [address]- 8492 Nov, [facility] [address] [id number] [place] [address]- 1597 Oct, [facility] [place] [facility] [address] [id number] [place] [address] September, [facility] [address] [id number] [place] [address] Aug, [facility] [address] [id number] [place] [address] Aug, [facility] [place] [facility] [address] [id number] [place] [address] Aug, [facility] [address] [id number] [place] [address] Aug, [facility] [address] [id number] [place] [address] Aug, [facility] [address] [id number] [place] [address] Aug, [facility] [address] [id number] [place] [address] Aug, [facility] [place] [facility] [address] [id number] [place] [address] Aug, [facility] [place] [facility] [address] [id number] [place] [address] Jul, [facility] [place] [facility] [address] [id number] [place] [address] Jul, [facility] [place] [facility] [address] [id number] [place] [address] Jun, [facility] [place] [facility] [address] [id number] [place] [address] Jun, [facility] [place] [facility] [address] [id number] [address] Jun, [facility] [id number] [address] Jun, [facility] [id number] [address] Jun, [facility] [id number] [address] Jun, [facility] [id number] [address] Jun, [facility] [id number] [address] May, [facility] [id number] [address] May, [facility] [id number] [address] May, [facility] [id number] [address] May, [facility] [id number] [address] Mar, [facility] [id number] [address] Mar, [facility] [id number] [address] Jan, IMMUNIZATIONS No Known Immunizations SOCIAL HISTORY Never Assessed REASON FOR VISIT Oxycododone 03/28 PLAN OF CARE VITAL SIGNS MEDICATIONS Medication Instructions Dosage Frequency Start Date End Date Duration Status Oxycodone-Acetaminophen 10-325 MG Orally 4 times a day 1 tablet as needed 6h Mar, 28 days Active RESULTS No Results PROCEDURES [...]
--- OUTSIDE RECORDS SUMMARY | 2018-01-27 20:21 | XMS REPORT ---
Author Author HORACE HIGGINS [facility] Address [address] [place] [address] Care Team Providers Care Regional Property Manager Name Role Phone HORACE HIGGINS Unavailable PROBLEMS Type Condition ICD9-CM Code KNF32-LJ Code Onset Dates Condition Status SNOMED Code Problem Weight loss R63.4 Active 141043140 Problem Primary insomnia F51.01 Active 9975573 Problem History of colon polyps Z86.010 Active 778354747 Problem Annual physical exam Z00.00 Active 046010942 Problem Migraine without aura and without status migrainosus, not intractable G43.009 Active 976239123 Problem Reactive depression F32.9 Active 74532768 Problem Asthma exacerbation J45.901 Active 771426415 Problem PTSD (post-traumatic stress disorder) F43.10 Active 61416587 Problem Diabetic polyneuropathy associated with type 2 diabetes mellitus E11.42 Active 14392742 Problem Neuropathy G62.9 Active 869954836 Problem Diabetes E11.9 Active 66318978 Problem Low TSH level R94.6 Active 695108625 Problem Back pain M54.9 Active 837824844 Problem Mixed hyperlipidemia E78.2 Active 306641908 Problem Type 2 diabetes mellitus with diabetic autonomic (poly)neuropathy E11.43 Active 87974371 Problem Gastroparesis K31.84 Active 410467641 Problem Uncomplicated asthma, unspecified asthma severity J45.909 Active 620395367 Problem 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 Active 073003251 Problem Anorexia R63.0 Active 14934590 ALLERGIES No Information ENCOUNTERS Encounter Location Date Diagnosis [facility] [address] [address] September, [facility] [id number] [address] September, [facility] [id number] [place] [address] 83277- 1194 September, Low TSH level R94.6 [place] [address] 437133- 8675 September, Other dorsalgia M54.89 [place] [address] [id number]- 7018 September, Annual physical exam Z00.00 and Migraine without aura and without status migrainosus, not intractable G43.009 [place] [address] [id number]- 6398 September, Abnormal TSH R94.6 and Dysfunction of left eustachian tube H69.82 [place] [address] 7791 Aug, [place] [address] 75584- 861 Aug, Anorexia R63.0 [facility] [address] [id number] Aug, Dental examination Z01.20 and Xerostomia K11.7 [place] [address] 63983- 9546 Aug, Neuropathy G62.9 [place] [address] 76536- 2671 Aug, [place] [address] 95298- 3562 Aug, Other dorsalgia M54.89 [place] [address] 41048- 6456 Aug, Type 2 diabetes mellitus with diabetic autonomic (poly) neuropathy E11.43 ; Diabetic polyneuropathy associated with type 2 diabetes mellitus E11.42 ; Bronchitis J40 ; Gastroparesis K31.84 and Reactive depression F32.9 [place] [address] 52576- 6124 Aug, PTSD (post-traumatic stress disorder) F43.10 [facility] [address] [address] 2546 Aug, Other dorsalgia M54.89 and Anorexia R63.0 [facility] [id number] [place] [address] 11163 2546 Jul, [facility] [id number] [place] [address] 85125 2546 Jul, Other dorsalgia M54.89 [facility] [id number] [place] [address] 23923 2546 Jul, [facility] [id number] [place] [address] 38174 2546 Jul, [facility] [id number] [place] [address] 41068 2546 Jul, PTSD (post-traumatic stress disorder) F43.10 [facility] [id number] [place] [address] 63578 2546 Jul, [facility] [id number] [place] [address] 05838 2546 Jul, [facility] [id number] [place] [address] 36775 2546 Jul, [facility] [id number] [place] [address] 16553 2546 Jul, Anorexia R63.0 [facility] [id number] [place] [address] 27467 2546 Jun, [facility] [id number] [place] [address] 39637 2546 Jun, Vaginal discharge N89.8 ; Visit for gynecologic examination Z01.419 and Pelvic pressure in female R10.2 [facility] [address] [address] 2546 Jun, [facility] [id number] [place] [address] 99474- 4994 Jun, Other dorsalgia M54.89 [facility] [id number] [place] [address] 60906- 8686 Jun, [facility] [id number] [place] [address] 26042- 1631 Jun, [facility] [address] 67241- 4708 Jun, [facility] [address] 79953- 5126 May, Back pain M54.9 [facility] [address] 81914- 0004 May, Anorexia R63.0 [facility] [address] 84085- 9896 May, Other dorsalgia M54.89 [facility] [id number] [place] [address] 96221- 8517 May, [facility] [address] 24023- 7951 May, Bronchitis J40 [facility] [id number] [place] [address] 54028- 8183 May, Type 2 diabetes mellitus with diabetic autonomic (poly) neuropathy E11.43 ; 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 ; Back pain M54.9 and Neuropathy G62.9 [facility] [id number] [place] [address] 04921- 3984 May, Left breast mass N63.20 [facility] [id number] [place] [address] 12788- 8882 May, [facility] [id number] [place] [address] 19323- 6101 Apr, Other dorsalgia M54.89 [facility] [id number] [place] [address] 99170- 4567 Apr, Anorexia R63.0 [facility] [address] 87071- 0496 Apr, Anorexia R63.0 [facility] [id number] [place] [address] 92555- 7784 Apr, Mass of left breast N63.20 [facility] [address] 73218- 0574 Apr, [facility] [address] 44295- 4355 Apr, [facility] [address] 92445- 2713 Apr, Diarrhea of presumed infectious origin A09 [facility] [address] 41828- 8469 Apr, Encounter for immunization Z23 [facility] [address] 81185- 1126 Apr, [facility] [address] 10376- 6140 Mar, Other dorsalgia M54.89 [facility] [id number] [place] [address] 81466- 8262 Mar, [facility] [id number] [place] [address] 57961- 1234 Mar, [facility] [id number] [place] [address] 20202 2545 Mar, Anorexia R63.0 [facility] [address] 17742- 9136 Mar, [facility] [id number] [place] [address] 72690- 6824 Mar, Other dorsalgia M54.89 [facility] [address] [place] [address]- 1845 Mar, [facility] [id number] [place] [address] 05638- 5829 Mar, Encounter for immunization Z23 [facility] [id number] [place] [address] 71585- 8462 Feb, Anorexia R63.0 [facility] [address] 88942- 4888 Feb, Diabetes E11.9 [facility] [address] 07893- 7549 Feb, Back pain M54.9 and Diabetes E11.9 [facility] [id number] [place] [address] 39823- 4148 Feb, Diabetes E11.9 [facility] [id number] [place] [address] 02424- 8027 Feb, Neuropathy G62.9 [facility] [id number] [place] [address] 81782- 9826 Feb, Encounter for immunization Z23 ; Epigastric pain R10.13 ; Weight loss, abnormal R63.4 and Neuropathy G62.9 [facility] [id number] [place] [address] [id number] Feb, [facility] [id number] [place] [address] 06660- 7082 Feb, [facility] [id number] [place] [address] 76630- 0887 Feb, Intractable vomiting with nausea, unspecified vomiting type R11.2 [facility] [id number] [place] [address] 68542 -9614 Feb, Chronic nausea R11.0 [facility] [id number] [place] [address] 85726- 5089 Feb, Other dorsalgia M54.89 [facility] [address] [address] 2546 Jan, [facility] [id number] [place] [address] 98353 2546 Jan, [facility] [id number] [place] [address] 41399 2546 Jan, [facility] [id number] [place] [address] 53247 2546 Jan, [facility] [id number] [place] [address] 58529 2546 Jan, Asthma exacerbation J45.901 ; Bronchitis J40 and Neuropathy G62.9 [facility] [id number] [place] [address] 41187 2546 Jan, Anorexia R63.0 [facility] [id number] [place] [address] 14635 2546 Jan, Other dorsalgia M54.89 [facility] [id number] [place] [address] 31974 2546 Dec, [facility] [id number] [place] [address] 79509 2546 Dec, [facility] [id number] [place] [address] 98120 2546 Dec, Anorexia R63.0 [facility] [id number] [place] [address] 28908 2546 14 Dec, 2016 Primary insomnia F51.01 [facility] [id number] [place] [address] 05577 2546 Dec, Other dorsalgia M54.89 [facility] [id number] [place] [address] 73663 2546 Dec, [facility] [id number] [place] [address] 69466 2546 Nov, [facility] [id number] [place] [address] 36640- 6354 Nov, [facility] [id number] [place] [address] 80463- 3618 Nov, [facility] [address] 10192- 8469 Nov, History of colon polyps Z86.010 [facility] [address] 39351- 1692 Nov, Weight loss R63.4 ; Nausea and vomiting, intractability of vomiting not specified, unspecified vomiting type R11.2 and Abnormal LFTs R79.89 [facility] [address] 55335- 4522 Nov, [facility] [address] 42180- 3218 Nov, Neuropathy G62.9 and Pain in right knee M25.561 [facility] [address] 53092- 3870 Nov, Back pain M54.9 [facility] [address] 02875- 8340 Nov, [facility] [address] 20415- 6161 Nov, Bronchitis J40 [facility] [id number] [place] [address] 18814- 7279 Nov, Weight loss R63.4 [facility] [id number] [place] [address] 92015- 1932 Oct, Back pain M54.9 [facility] [address] 08796- 4589 Oct, [facility] [address] 97075- 5053 14 Oct, 2016 Back pain M54.9 [facility] [address] [place] [address]- 2181 Oct, Type 2 diabetes mellitus without complications E11.9 and Bronchitis J40 [place] [address] 84212- 7022 Oct, [facility] [address] 05241- 0600 Oct, [place] [address] 20898- 4574 September, Gastroparesis K31.84 ; Type 2 diabetes mellitus with diabetic autonomic (poly)neuropathy E11.43 and Neuropathy G62.9 [place] [address] 66640- 7292 September, Other dorsalgia M54.89 [place] [address] 47518- 1828 September, [place] [address] 71517- 9875 September, [place] [address] 53480- 7263 Aug, Gastroparesis K31.84 and Radicular leg pain M54.10 [place] [id number] [place] [address] 53775- 9598 Aug, Anorexia R63.0 [place] [address] 70183- 9202 Aug, Bronchitis J40 [place] [id number] [place] [address] 78930- 1201 Aug, Back pain M54.9 [place] [address] 66676- 0675 Aug, Routine gynecological examination Z01.419 ; Routine screening for STI (sexually transmitted infection) Z11.3 and Yeast infection of the vagina B37.3 [place] [address] 80217- 2083 Jul, Other dorsalgia M54.89 [facility] [id number] [place] [address] 00829- 9946 Jul, Diabetes E11.9 and Gastroparesis K31.84 [facility] [id number] [place] [address] 90188- 6794 Jun, [facility] [address] 34638- 2754 Jun, Back pain M54.9 [facility] [id number] [place] [address] 09223- 0658 Jun, Neuropathy G62.9 [facility] [address] [id number] 02 Jun, 2016 Encounter for dental examination Z01.20 [facility] [address] 37523- 1376 Jun, Gastroparesis 536.3 and Anorexia R63.0 [facility] [id number] [place] [address] 13487- 5145 May, Other dorsalgia M54.89 [facility] [id number] [place] [address] 80751- 7985 May, Periumbilical abdominal pain R10.33 ; Weight loss R63.4 and Gastroparesis K31.84 [facility] [id number] [place] [address] 10008- 8446 May, Back pain M54.9 [facility] [id number] [place] [address] 44025- 6864 Apr, Anorexia R63.0 [facility] [address] 67768- 9095 Apr, Anorexia R63.0 [facility] [id number] [place] [address] 89305- 0637 Apr, Back pain M54.9 [facility] [id number] [place] [address] 70884- 3235 Apr, Back pain M54.9 [facility] [id number] [place] [address] 92318- 7126 Apr, [facility] [id number] [place] [address] 52833- 7156 Apr, Bronchitis J40 and Neuropathy G62.9 [facility] [id number] [place] [address] 36990- 2460 Apr, Neuropathy G62.9 [facility] [address] 44377- 3656 Apr, [facility] [id number] [place] [address] 79192- 9241 Apr, Back pain M54.9 [facility] [id number] [place] [address] 21405- 1549 Mar, Type 2 diabetes mellitus with diabetic autonomic (poly) neuropathy E11.43 [facility] [id number] [place] [address] 00873- 8300 Mar, Type 2 diabetes mellitus without complications E11.9 [facility] [id number] [place] [address] 89891- 1741 Mar, Neuropathy G62.9 [facility] [id number] [place] [address] 91827- 3246 Mar, [facility] [id number] [place] [address] 90094- 8612 Mar, Breast cancer screening Z12.39 [facility] [id number] [place] [address] 04431- 6796 Mar, Other dorsalgia M54.89 [facility] [id number] [place] [address] 65123- 2969 Feb, [facility] [address] [address]- 5501 30 Jan, 2016 Neuropathy G62.9 ; Type 2 diabetes mellitus with diabetic autonomic (poly)neuropathy E11.43 ; Uncomplicated asthma, unspecified asthma severity J45.909 and Encounter for immunization Z23 [facility] [id number] [place] [address] 98153- 5564 09 Jan, 2016 [facility] [id number] [place] [address] 07721- 9811 Jan, [facility] [id number] [place] [address] 12504- 5261 Dec, [facility] [id number] [place] [address] 55911- 2684 Dec, [facility] [id number] [place] [address] 04311- 0061 Nov, [facility] [id number] [place] [address] 67364- 6458 Nov, Back pain M54.9 [facility] [id number] [place] [address] 60915- 2520 Nov, Neuropathy G62.9 ; Mixed hyperlipidemia E78.2 ; Type 2 diabetes mellitus with diabetic autonomic (poly)neuropathy E11.43 and 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 [facility] [id number] [place] [address] 09987- 4463 Oct, [facility] [id number] [place] [address] 46254- 3670 Oct, Other dorsalgia M54.89 [facility] [id number] [place] [address] 02872- 6165 September, Primary insomnia F51.01 [facility] [id number] [place] [address] 84035- 5306 September, [facility] [id number] [place] [address] 22935- 9409 Aug, Other dorsalgia M54.89 [facility] [id number] [place] [address] 62765- 4798 Jul, [facility] [id number] [place] [address] 14340- 9006 Jul, Other dorsalgia M54.89 [facility] [id number] [place] [address] 47097- 9755 Jul, Diabetes E11.9 ; Back pain M54.9 ; Neuropathy G62.9 and Gastroparesis K31.84 [facility] [id number] [place] [address] 06909- 2016 Jun, [facility] [address] 69280- 6379 Jun, Other dorsalgia M54.89 [facility] [id number] [place] [address] 42849- 8370 May, [facility] [id number] [place] [address] 90151- 4013 May, Radicular leg pain M54.10 and Other dorsalgia M54.89 [facility] [id number] [place] [address] 05364- 3812 Apr, [facility] [id number] [place] [address] 28526- 4765 Mar, [facility] [id number] [place] [address] 09965- 2817 Mar, [facility] [id number] [place] [address] 35955- 4404 Mar, Radicular leg pain M54.10 [facility] [id number] [place] [address] 81747- 0475 Feb, [facility] [id number] [place] [address] 09356- 3691 Feb, [facility] [id number] [place] [address] 00818- 1793 Feb, [facility] [id number] [place] [address] 46628- 5889 Jan, [facility] [id number] [place] [address] 16660- 7543 Jan, IBS (irritable bowel syndrome) 564.1 [facility] [id number] [place] [address] 26347- 4141 Jan, [facility] [id number] [place] [address] 42199- 4093 Jan, [facility] [id number] [place] [address] 07605- 1555 Jan, Diabetes mellitus without mention of complication, type II or unspecified type, not stated as uncontrolled 250.00 ; Gastroparesis 536.3 and Hypoacusis 389.9 [facility] [id number] [place] [address] 03672- 5265 Jan, [facility] [id number] [place] [address] 38136- 7882 Jan, [facility] [id number] [place] [address] 80445- 9053 Dec, [facility] [id number] [place] [address] 33964- 3475 Dec, [facility] [id number] [place] [address] 89958- 1635 Dec, [facility] [id number] [place] [address] 13990- 9307 Dec, Back pain 724.5 and Gastroparesis 536.3 [facility] [id number] [place] [address] 08906- 9401 Nov, [facility] [id number] [place] [address] [id number] Nov, Dental examination V72.2 [facility] [address] [address] 79[address] Nov, [facility] [id number] [place] [address] 14465- 8213 Nov, [facility] [id number] [place] [address] 03524- 5614 Nov, Depressive disorder, not elsewhere classified 311 and No condition on [place] II V71.09 [facility] [id number] [place] [address] 16517- 3987 Nov, Diabetes 250.00 and Symptomatic menopausal or female climacteric states 627.2 [facility] [id number] [place] [address] 54846- 6241 Oct, [facility] [id number] [place] [address] [id number]- 7554 Oct, Lumbar strain 847.2 [facility] [id number] [place] [address] 92182- 5203 Oct, Gastroparesis 536.3 and Unspecified myalgia and myositis 729.1 [facility] [address] [address] 5066 Aug, [facility] [address] [address] 3601 Aug, [facility] [address] [address] 7368 Jul, [facility] [address] [address] 3753 Jul, [facility] [id number] [place] [address] 06650- 0282 Jul, [facility] [address] [address] 5189 Jul, [facility] [id number] [place] [address] [id number]- 7263 Jul, [facility] [place] [facility] [address] [id number] [place] [address] 8204 Jun, [facility] [place] [facility] [address] [id number] [place] [address]- 7464 Jun, [facility] [place] [facility] [address] [id number] [place] [address] 8806 Jun, [facility] [place] [facility] [address] [id number] [place] [address]- 1262 May, [facility] [place] [facility] [address] [id number] [place] [address]- 1460 May, [facility] [place] [facility] [address] [id number] [place] [address]- 3581 Mar, [facility] [place] [facility] [address] [id number] [place] [address]- 8998 Mar, [facility] [place] [facility] [address] [address] [id number] [place] [address] Mar, [facility] [place] [facility] [address] [id number] [place] [address] Mar, [facility] [place] [facility] [address] [facility] [id number] [place] [address] Mar, [facility] [place] [facility] [address] [id number] [place] [address] Mar, [facility] [place] [facility] [address] [id number] [place] [address] Feb, [facility] [place] [facility] [address] [id number] [place] [address] Feb, [facility] [place] [facility] [address] [id number] [place] [address] Nov, [facility] [place] [facility] [address] [id number] [place] [address] Nov, [facility] [place] [facility] [address] [id number] [place] [address] Nov, [facility] [address] [id number] [place] [address] Oct, [facility] [place] [facility] [address] [id number] [place] [address] September, [facility] [address] [id number] [place] [address] Aug, [facility] [address] [id number] [place] [address] Aug, [facility] [place] [facility] [address] [id number] [place] [address] Aug, [facility] [address] [id number] [place] [address] Aug, [facility] [address] [id number] [place] [address] Aug, [facility] [address] [id number] [place] [address] Aug, [facility] [address] [id number] [place] [address] Aug, [facility] [place] [facility] [address] [id number] [place] [address] Aug, [facility] [place] [facility] [address] [id number] [place] [address] Jul, [facility] [place] [facility] [address] [id number] [place] [address] Jul, [facility] [place] [facility] [address] [id number] [place] [address] Jun, [facility] [place] [facility] [address] [id number] [place] [address] Jun, [facility] [place] [facility] [address] [id number] [place] [address] Jun, [facility] [id number] [address] 08 Jun, 2012 [facility] [id number] [address] Jun, [facility] [id number] [address] Jun, [facility] [id number] [address] Jun, [facility] [id number] [address] May, [facility] [id number] [address] May, [facility] [id number] [address] May, [facility] [id number] [address] May, [facility] [id number] [address] Mar, [facility] [id number] [address] Mar, [facility] [id number] [address] Jan, IMMUNIZATIONS No Known Immunizations SOCIAL HISTORY Never Assessed REASON FOR VISIT Marinol- 03/25 PLAN OF CARE VITAL SIGNS MEDICATIONS Medication [...] vomitting-[facility] 03/05/17 Hospitalization History hospital stay at [facility] for stomach issues 2016
--- OUTSIDE RECORDS SUMMARY | 2018-01-27 20:22 | XMS REPORT ---
Author Author HORACE HIGGINS [facility] Address [address] [place] [address] Care Team Providers Care Mutuel Clerk Name Role Phone HORACE HIGGINS Unavailable PROBLEMS Type Condition ICD9-CM Code CWC82-AU Code Onset Dates Condition Status SNOMED Code Problem Uncomplicated asthma, unspecified asthma severity J45.909 Active 415064709 Problem Weight loss R63.4 Active 384381386 Problem Anorexia R63.0 Active 11058475 Problem PTSD (post-traumatic stress disorder) F43.10 Active 79293180 Problem Diabetic polyneuropathy associated with type 2 diabetes mellitus E11.42 Active 40746515 Problem Primary insomnia F51.01 Active 6274250 Problem History of colon polyps Z86.010 Active 043079602 Problem Reactive depression F32.9 Active 22626494 Problem Asthma exacerbation J45.901 Active 092478870 Problem Depressive disorder, not elsewhere classified 311 Active 60729524 Problem Back pain M54.9 Active 148040760 Problem Gastroparesis K31.84 Active 077883977 Problem Mixed hyperlipidemia E78.2 Active 766076557 Problem Neuropathy G62.9 Active 496101128 Problem Type 2 diabetes mellitus with diabetic autonomic (poly)neuropathy E11.43 Active 89639455 Problem Diabetes E11.9 Active 84624221 Problem correction current use of insulin Z79.4 Active 852975495 ALLERGIES No Information ENCOUNTERS Encounter Location Date Diagnosis [facility] [address] [facility] [id number] [address] September, [facility] [address], [place] [address] September, [facility] [address] [id number] [id number] Aug, [facility] [address] [id number] [address] Aug, Other dorsalgia M54.89 [facility] [id number] [place] [address] 75841 2546 16 Aug, 2017 Type 2 diabetes mellitus with diabetic autonomic (poly) neuropathy E11.43 ; Diabetic polyneuropathy associated with type 2 diabetes mellitus E11.42 ; Bronchitis J40 ; Gastroparesis K31.84 and Reactive depression F32.9 [facility] [address] 87449 2546 Aug, PTSD (post-traumatic stress disorder) F43.10 [facility] [id number] [place] [address] 83703 2546 Aug, Other dorsalgia M54.89 and Anorexia R63.0 [facility] [id number] [place] [address] 85582 2546 Jul, [facility] [address] 66657 2546 Jul, Other dorsalgia M54.89 [facility] [id number] [place] [address] 29235 2546 Jul, [facility] [id number] [place] [address] 90792 2546 Jul, [facility] [id number] [place] [address] 41136 2546 Jul, PTSD (post-traumatic stress disorder) F43.10 [facility] [id number] [place] [address] 61511 2546 Jul, [facility] [id number] [place] [address] 88840 2546 Jul, [facility] [id number] [place] [address] 51580 2546 Jul, [facility] [id number] [place] [address] 84929 2546 Jul, Anorexia R63.0 [facility] [id number] [place] [address] 87665- 0014 Jun, [facility] [address] 8[address]17- 4236 Jun, Vaginal discharge N89.8 ; Visit for gynecologic examination Z01.419 and Pelvic pressure in female R10.2 [facility] [id number] [place] [address] 03257- 8636 Jun, [facility] [id number] [place] [address] 55833- 4809 Jun, Other dorsalgia M54.89 [facility] [address] 97334- 8616 Jun, [facility] [id number] [place] [address] 10986- 4091 Jun, [facility] [address] 59906- 2866 Jun, [facility] [id number] [place] [address] 90918- 3028 May, Back pain M54.9 [facility] [id number] [place] [address] 57741- 0956 May, Anorexia R63.0 [facility] [id number] [place] [address] 57587- 4903 May, Other dorsalgia M54.89 [facility] [id number] [place] [address] 70990- 9399 May, [facility] [id number] [place] [address] 43267- 7234 May, Bronchitis J40 [facility] [id number] [place] [address] 69071- 5069 May, Type 2 diabetes mellitus with diabetic autonomic (poly) neuropathy E11.43 ; 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 ; Back pain M54.9 and Neuropathy G62.9 [facility] [id number] [place] [address] 85613 254 May, Left breast mass N63.20 [facility] [id number] [place] [address] 76912 2546 May, [facility] [id number] [place] [address] 90295 2546 Apr, Other dorsalgia M54.89 [facility] [id number] [place] [address] 15800 2546 Apr, Anorexia R63.0 [facility] [address] 91588- 3706 Apr, Anorexia R63.0 [facility] [address] 39889 2546 Apr, Mass of left breast N63.20 [facility] [id number] [place] [address] 68012 2546 Apr, [facility] [id number] [place] [address] 25933 2546 Apr, [facility] [id number] [place] [address] 34940- 8305 Apr, Diarrhea of presumed infectious origin A09 [facility] [id number] [place] [address] 09258 2547 Apr, Encounter for immunization Z23 [facility] [id number] [place] [address] 29419 2541 Apr, [facility] [id number] [place] [address] 56995 2549 Mar, Other dorsalgia M54.89 [facility] [id number] [place] [address] 14897 2546 Mar, [facility] [id number] [place] [address] 44517617- 6544 Mar, [facility] [id number] [place] [address] 71843- 2316 Mar, Anorexia R63.0 [facility] [address] 26726- 1842 Mar, [facility] [id number] [place] [address] 33675- 7199 Mar, Other dorsalgia M54.89 [facility] [address] 70735- 0309 Mar, [facility] [address] 84923- 6574 Mar, Encounter for immunization Z23 [facility] [address] 55138- 7563 Feb, Anorexia R63.0 [facility] [address] 45762- 2774 Feb, Diabetes E11.9 [facility] [address] 59773- 3178 Feb, Back pain M54.9 and Diabetes E11.9 [facility] [id number] [place] [address] 23652- 5132 Feb, Diabetes E11.9 [facility] [id number] [place] [address] 55159- 8517 Feb, Neuropathy G62.9 [facility] [id number] [place] [address] 30853- 3836 Feb, Encounter for immunization Z23 ; Epigastric pain R10.13 ; Weight loss, abnormal R63.4 and Neuropathy G62.9 [facility] [id number] [place] [address] [id number] Feb, [facility] [id number] [place] [address] 52962- 9346 Feb, [facility] [id number] [place] [address] 88210- 9019 Feb, Intractable vomiting with nausea, unspecified vomiting type R11.2 [facility] [id number] [place] [address] 95708 -5885 Feb, Chronic nausea R11.0 [facility] [id number] [place] [address] 34831- 3089 Feb, Other dorsalgia M54.89 [facility] [id number] [place] [address] 68661- 3070 Jan, [facility] [address] 88711- 4310 Jan, [facility] [id number] [place] [address] 14756- 1007 Jan, [facility] [address] 68859- 1218 Jan, [facility] [id number] [place] [address] 46362- 5672 Jan, Asthma exacerbation J45.901 ; Bronchitis J40 and Neuropathy G62.9 [facility] [id number] [place] [address] 50120- 5454 Jan, Anorexia R63.0 [facility] [id number] [place] [address] 62972- 5895 Jan, Other dorsalgia M54.89 [facility] [id number] [place] [address] 05363- 7707 Dec, [facility] [id number] [place] [address] 63486- 1120 Dec, [facility] [id number] [place] [address] 69962- 5997 Dec, Anorexia R63.0 [facility] [id number] [place] [address] 07978- 1692 Dec, Primary insomnia F51.01 [facility] [id number] [place] [address] 63951- 0122 Dec, Other dorsalgia M54.89 [facility] [id number] [place] [address] 85655- 8427 Dec, [facility] [id number] [place] [address] 00461- 0923 Nov, [facility] [id number] [place] [address] 18125- 9596 Nov, [facility] [id number] [place] [address] 30468- 2778 Nov, [facility] [address] 55666- 6362 Nov, History of colon polyps Z86.010 [facility] [id number] [place] [address] 49988- 0471 Nov, Weight loss R63.4 ; Nausea and vomiting, intractability of vomiting not specified, unspecified vomiting type R11.2 and Abnormal LFTs R79.89 [facility] [id number] [place] [address] 49328- 9784 Nov, [facility] [id number] [place] [address] 11928- 7113 Nov, Neuropathy G62.9 and Pain in right knee M25.561 [facility] [id number] [place] [address] 58784- 4019 Nov, Back pain M54.9 [facility] [id number] [place] [address] 91533- 5231 Nov, [facility] [id number] [place] [address] 65249- 0959 Nov, Bronchitis J40 [facility] [id number] [place] [address] 47323- 1379 Nov, Weight loss R63.4 [facility] [id number] [place] [address] 42159- 2732 Oct, Back pain M54.9 [facility] [id number] [place] [address] 24138- 4596 16 Oct, 2016 [facility] [id number] [place] [address] 03810- 5407 14 Oct, 2016 Back pain M54.9 [facility] [address] 67063- 3210 13 Oct, 2016 Type 2 diabetes mellitus without complications E11.9 and Bronchitis J40 [facility] [address] 01290- 4627 Oct, [facility] [id number] [place] [address] 91390- 6448 Oct, [facility] [address] 97403- 5806 September, Gastroparesis K31.84 ; Type 2 diabetes mellitus with diabetic autonomic (poly)neuropathy E11.43 and Neuropathy G62.9 [facility] [id number] [place] [address] 34360- 6553 September, Other dorsalgia M54.89 [facility] [id number] [place] [address] 35456- 2004 September, [facility] [id number] [place] [address] 44813- 7391 September, [facility] [id number] [place] [address] 62906- 2263 Aug, Gastroparesis K31.84 and Radicular leg pain M54.10 [facility] [id number] [place] [address] 99513- 0128 Aug, Anorexia R63.0 [facility] [id number] [place] [address] 33719- 6357 Aug, Bronchitis J40 [facility] [id number] [place] [address] 52790- 6439 Aug, Back pain M54.9 [facility] [id number] [place] [address] 39017- 6819 Aug, Routine gynecological examination Z01.419 ; Routine screening for STI (sexually transmitted infection) Z11.3 and Yeast infection of the vagina B37.3 [facility] [id number] [place] [address] 02900- 4704 Jul, Other dorsalgia M54.89 [facility] [id number] [place] [address] 91288- 7969 Jul, Diabetes E11.9 and Gastroparesis K31.84 [address] [address] 67467- 9411 Jun, [facility] [id number] [place] [address] 28032- 9439 Jun, Back pain M54.9 [facility] [id number] [place] [address] 41475- 4890 14 Jun, 2016 Neuropathy G62.9 [facility] [id number] [place] [address] [id number] 02 Jun, 2016 Encounter for dental examination Z01.20 [facility] [id number] [place] [address] 50329- 9200 Jun, Gastroparesis 536.3 and Anorexia R63.0 [facility] [id number] [place] [address] 61799- 3516 May, Other dorsalgia M54.89 [facility] [address] 08634- 2139 May, Periumbilical abdominal pain R10.33 ; Weight loss R63.4 and Gastroparesis K31.84 [facility] [id number] [place] [address] 82799- 3102 May, Back pain M54.9 [facility] [id number] [place] [address] 99046 2546 Apr, Anorexia R63.0 [facility] [id number] [place] [address] 24273 2546 Apr, Anorexia R63.0 [facility] [id number] [place] [address] 13907 2546 Apr, Back pain M54.9 [facility] [id number] [place] [address] 47143 2546 Apr, Back pain M54.9 [facility] [id number] [place] [address] 98013 2546 Apr, [facility] [id number] [place] [address] 59575 2546 Apr, Bronchitis J40 and Neuropathy G62.9 [facility] [id number] [place] [address] 61560 2546 Apr, Neuropathy G62.9 [facility] [id number] [place] [address] 25978 2546 Apr, [facility] [id number] [place] [address] 92188 2540 Apr, Back pain M54.9 [facility] [id number] [place] [address] 23531 2546 Mar, Type 2 diabetes mellitus with diabetic autonomic (poly) neuropathy E11.43 [facility] [id number] [place] [address] 50083 2546 Mar, Type 2 diabetes mellitus without complications E11.9 [facility] [id number] [place] [address] 02861 2546 Mar, Neuropathy G62.9 [facility] [id number] [place] [address] 68233186- 0081 Mar, [facility] [id number] [place] [address] 79740- 9220 Mar, Breast cancer screening Z12.39 [facility] [id number] [place] [address] 09807- 0706 Mar, Other dorsalgia M54.89 [facility] [id number] [place] [address] 84294- 9230 Feb, [facility] [id number] [place] [address] 91450- 8689 30 Jan, 2016 Neuropathy G62.9 ; Type 2 diabetes mellitus with diabetic autonomic (poly)neuropathy E11.43 ; Uncomplicated asthma, unspecified asthma severity J45.909 and Encounter for immunization Z23 [facility] [id number] [place] [address] 16281- 7309 09 Jan, 2016 [facility] [address] 26455- 9322 Jan, [facility] [id number] [place] [address] 90231- 7371 Dec, [facility] [id number] [place] [address] 76198- 8248 Dec, [facility] [id number] [place] [address] 55119- 2164 Nov, [facility] [id number] [place] [address] 02176- 0457 Nov, Back pain M54.9 [facility] [id number] [place] [address] 88485- 8948 Nov, Neuropathy G62.9 ; Mixed hyperlipidemia E78.2 ; Type 2 diabetes mellitus with diabetic autonomic (poly)neuropathy E11.43 and correction current use of insulin Z79.4 [facility] [id number] [place] [address] 15092- 1522 Oct, [facility] [address] [place] [address]- 1744 Oct, Other dorsalgia M54.89 [facility] [address] 82786- 1164 September, Primary insomnia F51.01 [facility] [id number] [place] [address] 49630- 3565 September, [facility] [address] 32765- 9256 Aug, Other dorsalgia M54.89 [facility] [address] 31381- 3097 Jul, [facility] [address] 62541- 7183 Jul, Other dorsalgia M54.89 [facility] [address] 07226- 9040 Jul, Diabetes E11.9 ; Back pain M54.9 ; Neuropathy G62.9 and Gastroparesis K31.84 [facility] [id number] [place] [address] 14523- 8890 Jun, [facility] [id number] [place] [address] 45153- 6331 Jun, Other dorsalgia M54.89 [facility] [id number] [place] [address] 77006- 6432 May, [facility] [id number] [place] [address] 54391- 5972 May, Radicular leg pain M54.10 and Other dorsalgia M54.89 [facility] [address] 69053- 6293 Apr, [facility] [id number] [place] [address] 70504- 1058 Mar, [facility] [address] 38369- 2806 Mar, [facility] [address] [address]- 1627 Mar, Radicular leg pain M54.10 [facility] [address] [address]- 5789 Feb, [facility] [id number] [place] [address] 88744- 2307 Feb, [facility] [id number] [place] [address] 22036- 3609 Feb, [facility] [id number] [place] [address] 77649- 0601 Jan, [facility] [id number] [place] [address] 02731- 3050 Jan, IBS (irritable bowel syndrome) 564.1 [facility] [id number] [place] [address] [phone]- 8856 Jan, [facility] [id number] [address] Jan, [facility] [id number] [place] [address] [phone]- 4880 Jan, Diabetes mellitus without mention of complication, type II or unspecified type, not stated as uncontrolled 250.00 ; Gastroparesis 536.3 and Hypoacusis 389.9 [facility] [id number], [place] [address] Jan, [facility] [id number] [address] Jan, [facility] [id number] [place] [address] [phone]- 5697 Dec, [facility] [id number] [address] Dec, [facility] [id number] [address] Dec, [facility] [id number] [place] [address] [phone]- 0562 Dec, Back pain 724.5 and Gastroparesis 536.3 [facility] [id number] [address] Nov, [facility] [id number] [place] [address] [id number] Nov, Dental examination V72.2 [facility] [id number] [place] [address] 98894- 4569 Nov, [facility] [id number] [place] [address] 05378- 9938 Nov, [facility] [id number] [place] [address] 86048- 7427 Nov, Depressive disorder, not elsewhere classified 311 and No condition on [place] II V71.09 [facility] [id number] [place] [address] 78585- 2188 Nov, Diabetes 250.00 and Symptomatic menopausal or female climacteric states 627.2 [facility] [id number] [place] [address] 71331- 4304 Oct, [facility] [id number] [place] [address] 82419- 2223 Oct, Lumbar strain 847.2 [facility] [id number] [place] [address] 11978- 7132 Oct, Gastroparesis 536.3 and Unspecified myalgia and myositis 729.1 [facility] [id number] [place] [address] 04934- 8429 Aug, [facility] [id number] [address] Aug, [facility] [id number] [place] [address] Jul, [facility] [place] [facility] [address] [id number] [place] [address] Jul, [facility] [place] [facility] [address] [id number] [place] [address] Jul, [facility] [place] [facility] [address] [id number] [place] [address] Jul, [facility] [place] [facility] [address] [id number] [place] [address] Jul, [facility] [place] [facility] [address] [id number] [place] [address] Jun, [facility] [place] [facility] [address] [id number] [place] [address] Jun, [facility] [place] [facility] [address] [id number] [place] [address] Jun, [facility] [place] [facility] [address] [id number] [place] [address] May, [facility] [place] [facility] [address] [id number] [place] [address] May, [facility] [place] [facility] [address] [facility] [id number] [place] [address] Mar, [facility] [place] [facility] [address] [id number] [place] [address] Mar, [facility] [place] [facility] [address] [id number] [place] [address] Mar, [facility] [place] [facility] [address] [id number] [place] [address] Mar, [facility] [place] [facility] [address] [id number] [place] [address] Mar, [facility] [place] [facility] [address] [facility] [id number] [place] [address] Mar, [facility] [place] [facility] [address] [id number] [place] [address] Feb, [facility] [address] [id number] [place] [address] Feb, [facility] [place] [facility] [address] [id number] [place] [address] Nov, [facility] [place] [facility] [address] [id number] [place] [address] Nov, [facility] [address] [id number] [place] [address]80 Nov, [facility] [place] [facility] [address] [id number] [place] [address] Oct, [facility] [address] [id number] [place] [address] September, [facility] [address] [id number] [place] [address] Aug, [facility] [address] [id number] [place] [address] Aug, [facility] [place] [facility] [address] [id number] [place] [address] Aug, [facility] [address] [id number] [place] [address] Aug, [facility] [place] [facility] [address] [id number] [place] [address] Aug, [facility] [place] [facility] [address] [id number] [place] [address] Aug, [facility] [place] [facility] [address] [id number] [place] [address] Aug, [facility] [place] [facility] [address] [id number] [place] [address] 02 Aug, 2012 [facility] [place] [facility] [address] [id number] [place] [address] 79[address] Jul, [facility] [address] [facility] [id number] [place] [address] Jul, [facility] [address] [facility] [id number] [address] 12 Jun, 2012 [facility] [id number] [place] [address] Jun, [facility] [address] [facility] [id number], [place] [address] 09 Jun, 2012 [facility] [address] [facility] [id number] [place] [address] 08 Jun, 2012 [facility] [address] [facility] [id number], [place] [address] Jun, [facility] [id number], [place] [address] Jun, [facility] [id number], [place] [address] Jun, [facility] [id number], [place] [address] May, [facility] [id number], [place] [address] May, [facility] [id number], [place] [address] May, [facility] [id number], [place] [address] May, [facility] [id number], [place] [address] Mar, [facility] [id number] [address] Mar, [facility] [id number], [place] [address] 24 Jan, 2012 IMMUNIZATIONS No Known Immunizations SOCIAL HISTORY Never Assessed REASON FOR VISIT Refill request PLAN OF CARE VITAL SIGNS MEDICATIONS Unknown [...]
--- OUTSIDE RECORDS SUMMARY | 2018-01-27 20:22 | XMS REPORT ---
Author Author HORACE HIGGINS [facility] Address [address] [place] [address] Care Team Providers Care Merchandise Flow Team Member Name Role Phone HORACE HIGGINS Unavailable PROBLEMS Type Condition ICD9-CM Code NTC94-NZ Code Onset Dates Condition Status SNOMED Code Problem History of colon polyps Z86.010 Active 503581597 Problem Asthma exacerbation J45.901 Active 423858806 Problem Primary insomnia F51.01 Active 2774118 Problem Tobacco dependency F17.200 Active 71699770 Problem Low TSH level R94.6 Active 685520585 Problem Annual physical exam Z00.00 Active 980182140 Problem Diabetic polyneuropathy associated with type 2 diabetes mellitus E11.42 Active 68761713 Problem Reactive depression F32.9 Active 80679600 Problem Migraine without aura and without status migrainosus, not intractable G43.009 Active 942946104 Problem PTSD (post-traumatic stress disorder) F43.10 Active 67485030 Problem Diabetes E11.9 Active 55850999 Problem Gastroparesis K31.84 Active 519282590 Problem Back pain M54.9 Active 775324423 Problem Neuropathy G62.9 Active 318661776 Problem Type 2 diabetes mellitus with diabetic autonomic (poly)neuropathy E11.43 Active 91967945 Problem Uncomplicated asthma, unspecified asthma severity J45.909 Active 789166252 Problem long-term current use of insulin Z79.4 Active 685800897 Problem Anorexia R63.0 Active 82562257 Problem Mixed hyperlipidemia E78.2 Active 010075155 Problem Weight loss R63.4 Active 315479449 ALLERGIES No Information ENCOUNTERS Encounter Location Date Diagnosis [facility] [id number] [address] Jan, [facility] [id number] [address] Dec, [facility] [address] [address]- [address]63 27 Oct, 2017 PTSD (post-traumatic stress disorder) F43.10 [facility] [address] [id number]- 4312 Oct, [facility] [address] 99555- 9427 19 Oct, 2017 PTSD (post-traumatic stress disorder) F43.10 and Tobacco dependency F17.200 [facility] [address] 47673- 4228 18 Oct, 2017 [facility] [address] 859731- 5268 Oct, Other dorsalgia M54.89 [facility] [address] 63930- 4113 Oct, Anorexia R63.0 [facility] [address] 08945- 1706 September, PTSD (post-traumatic stress disorder) F43.10 [facility] [address] 47985- 9634 September, Low TSH level R94.6 [facility] [address] 04033- 7956 September, Other dorsalgia M54.89 [facility] [address] 31604- 8489 September, Annual physical exam Z00.00 and Migraine without aura and without status migrainosus, not intractable G43.009 [facility] [address] 81041- 5666 September, Abnormal TSH R94.6 and Dysfunction of left eustachian tube H69.82 [facility] [address] 11555- 7598 Aug, [facility] [address] [place] [address] 30 Aug, [address] [facility] [id number] [place] [address] [id number] Aug, Dental examination Z01.20 and Xerostomia K11.7 [facility] [id number] [place] [address] 10781- 3282 Aug, Neuropathy G62.9 [facility] [address] 39158- 2065 Aug, [facility] [id number] [place] [address] 78820- 0204 Aug, Other dorsalgia M54.89 [facility] [id number] [place] [address] 33182- 8928 Aug, Type 2 diabetes mellitus with diabetic autonomic (poly) neuropathy E11.43 ; Diabetic polyneuropathy associated with type 2 diabetes mellitus E11.42 ; Bronchitis J40 ; Gastroparesis K31.84 and Reactive depression F32.9 [facility] [id number] [place] [address] 55192- 0702 Aug, PTSD (post-traumatic stress disorder) F43.10 [facility] [id number] [place] [address] 06312- 6076 Aug, Other dorsalgia M54.89 and Anorexia R63.0 [facility] [id number] [place] [address] 76254- 6429 Jul, [facility] [id number] [place] [address] 05887- 2549 Jul, Other dorsalgia M54.89 [facility] [address] 90570- 0140 Jul, [facility] [id number] [place] [address] 15172- 1351 Jul, [facility] [address] [place] [address]- 2546 Jul, PTSD (post-traumatic stress disorder) F43.10 [facility] [id number] [place] [address] 02252- 4816 Jul, [facility] [id number] [place] [address] 42736 2546 Jul, [facility] [id number] [place] [address] 50333- 2806 Jul, [facility] [id number] [place] [address] 39094 2546 Jul, Anorexia R63.0 [facility] [address] 08511- 9506 Jun, [facility] [id number] [place] [address] 04400- 1626 Jun, Vaginal discharge N89.8 ; Visit for gynecologic examination Z01.419 and Pelvic pressure in female R10.2 [facility] [id number] [place] [address] 79141- 5736 Jun, [facility] [id number] [place] [address] 58557- 3946 Jun, Other dorsalgia M54.89 [facility] [id number] [place] [address] 17921- 9856 16 Jun, 2017 [facility] [id number] [place] [address] 67458 2546 Jun, [facility] [id number] [place] [address] 26155 2546 Jun, [facility] [id number] [place] [address] 85648 2546 May, Back pain M54.9 [facility] [id number] [place] [address] 78462 2546 May, Anorexia R63.0 [facility] [id number] [place] [address] 07295- 9325 May, Other dorsalgia M54.89 [facility] [address] 86470- 0049 May, [facility] [address] 62804- 1963 May, Bronchitis J40 [facility] [address] 77912- 9145 May, Type 2 diabetes mellitus with diabetic autonomic (poly) neuropathy E11.43 ; long-term current use of insulin Z79.4 ; Back pain M54.9 and Neuropathy G62.9 [facility] [address] 91704- 7296 May, Left breast mass N63.20 [facility] [address] 65786- 7858 May, [facility] [address] 28469- 1797 Apr, Other dorsalgia M54.89 [facility] [address] 57061- 2426 Apr, Anorexia R63.0 [facility] [address] 44816- 3248 Apr, Anorexia R63.0 [facility] [address] 65284- 4775 Apr, Mass of left breast N63.20 [facility] [id number] [place] [address] 60937- 5276 Apr, [facility] [address] 23965- 0603 Apr, [facility] [id number] [place] [address] 06388- 0650 Apr, Diarrhea of presumed infectious origin [id number] [place] [address] 60450- 3493 Apr, Encounter for immunization Z23 [facility] [id number] [place] [address] 34417- 9446 Apr, [facility] [id number] [place] [address] 44272- 0799 Mar, Other dorsalgia M54.89 [facility] [id number] [place] [address] 53078- 7360 Mar, [facility] [id number] [place] [address] 04427- 3466 Mar, [facility] [id number] [place] [address] 24426- 8371 Mar, Anorexia R63.0 [facility] [id number] [place] [address] 83392- 7492 Mar, [facility] [id number] [place] [address] 95684- 8686 Mar, Other dorsalgia M54.89 [facility] [id number] [place] [address] 33810- 4560 Mar, [facility] [id number] [place] [address] 26198- 5393 Mar, Encounter for immunization Z23 [facility] [id number] [place] [address] 52046- 9724 Feb, Anorexia R63.0 [facility] [id number] [place] [address] 90601- 1199 Feb, Diabetes E11.9 [facility] [id number] [place] [address] 55821- 0277 Feb, Back pain M54.9 and Diabetes E11.9 [facility] [id number] [place] [address] 96681- 9025 Feb, Diabetes E11.9 [facility] [address] 15626- 3503 Feb, Neuropathy G62.9 [facility] [address] 78398- 8012 Feb, Encounter for immunization Z23 ; Epigastric pain R10.13 ; Weight loss, abnormal R63.4 and Neuropathy G62.9 [facility] [address] [id number] Feb, [facility] [address] 58257- 0936 Feb, [facility] [address] 41402- 5068 Feb, Intractable vomiting with nausea, unspecified vomiting type R11.2 [facility] [address] 52696 -2529 Feb, Chronic nausea R11.0 [facility] [address] 21219- 7831 Feb, Other dorsalgia M54.89 [facility] [address] 62436- 0901 Jan, [facility] [address] 42875- 7238 Jan, [facility] [address] 55770- 5676 Jan, [facility] [address] 46861- 2155 Jan, [facility] [address] 16404- 4827 Jan, Asthma exacerbation J45.901 ; Bronchitis J40 and Neuropathy G62.9 [facility] [address] 08395- 9142 Jan, Anorexia R63.0 [facility] [id number] [place] [address] 83030- 1020 Jan, Other dorsalgia M54.89 [facility] [id number] [place] [address] 35754- 7446 Dec, [facility] [id number] [place] [address] 44346- 1666 Dec, [facility] [id number] [place] [address] 50713- 0236 Dec, Anorexia R63.0 [facility] [id number] [place] [address] 66259- 6741 Dec, Primary insomnia F51.01 [facility] [id number] [place] [address] 87224- 4264 Dec, Other dorsalgia M54.89 [facility] [id number] [place] [address] 65826- 9743 Dec, [facility] [id number] [place] [address] 69389- 1576 Nov, [facility] [id number] [place] [address] 24398- 8352 Nov, [facility] [id number] [place] [address] 89485- 3033 Nov, [facility] [id number] [place] [address] 32738- 4255 Nov, History of colon polyps Z86.010 [facility] [id number] [place] [address] 71246- 1247 Nov, Weight loss R63.4 ; Nausea and vomiting, intractability of vomiting not specified, unspecified vomiting type R11.2 and Abnormal LFTs R79.89 [facility] [id number] [place] [address] 53687- 8824 Nov, [facility] [id number] [place] [address] 53227- 3879 14 Nov, 2016 Neuropathy G62.9 and Pain in right knee M25.561 [facility] [id number] [place] [address] 46891- 8984 12 Nov, 2016 Back pain M54.9 [facility] [id number] [place] [address] 91064- 7959 10 Nov, 2016 [facility] [address] 28379- 7027 08 Nov, 2016 Bronchitis J40 [facility] [id number] [place] [address] 29417- 9591 03 Nov, 2016 Weight loss R63.4 [facility] [id number] [place] [address] 22101- 3950 16 Oct, 2016 Back pain M54.9 [facility] [id number] [place] [address] 48907- 5170 Oct, [facility] [id number] [place] [address] 11962- 3550 14 Oct, 2016 Back pain M54.9 [facility] [id number] [place] [address] 17793- 8895 13 Oct, 2016 Type 2 diabetes mellitus without complications E11.9 and Bronchitis J40 [facility] [id number] [place] [address] 55854- 1062 Oct, [facility] [id number] [place] [address] 35370- 9790 Oct, [facility] [id number] [place] [address] 90292- 4032 September, Gastroparesis K31.84 ; Type 2 diabetes mellitus with diabetic autonomic (poly)neuropathy E11.43 and Neuropathy G62.9 [facility] [id number] [place] [address] 67673- 5023 September, Other dorsalgia M54.89 [facility] [id number] [place] [address] 93722- 9673 September, [facility] [address] 15082- 6760 September, [facility] [address] 09393- 1766 Aug, Gastroparesis K31.84 and Radicular leg pain M54.10 [facility] [address] 28237- 5650 Aug, Anorexia R63.0 [facility] [address] 33106- 4505 Aug, Bronchitis J40 [facility] [address] 80704- 6734 Aug, Back pain M54.9 [facility] [address] 62103- 2385 Aug, Routine gynecological examination Z01.419 ; Routine screening for STI (sexually transmitted infection) Z11.3 and Yeast infection of the vagina B37.3 [facility] [address] 80403- 1469 Jul, Other dorsalgia M54.89 [facility] [address] 35231- 6546 Jul, Diabetes E11.9 and Gastroparesis K31.84 [facility] [id number] [place] [address] 77250- 9237 Jun, [facility] [id number] [place] [address] 07623- 2466 Jun, Back pain M54.9 [facility] [address] 80192- 9618 14 Jun, [address] [facility] [id number] [place] [address] [id number] 02 Jun, 2016 Encounter for dental examination Z01.20 [facility] [id number] [place] [address] 74766- 3890 Jun, Gastroparesis 536.3 and Anorexia R63.0 [facility] [address] 87886 2546 27 May, 2016 Other dorsalgia M54.89 [facility] [address] 53769- 3444 May, Periumbilical abdominal pain R10.33 ; Weight loss R63.4 and Gastroparesis K31.84 [facility] [address] 51917- 1874 May, Back pain M54.9 [facility] [address] 74426- 7666 Apr, Anorexia R63.0 [facility] [address] 50492 2546 Apr, Anorexia R63.0 [facility] [address] 25395 2549 Apr, Back pain M54.9 [facility] [address] 43517 2546 Apr, Back pain M54.9 [facility] [address] 94979 2546 Apr, [facility] [address] 93245 2546 Apr, Bronchitis J40 and Neuropathy G62.9 [facility] [address] 21153 2546 Apr, Neuropathy G62.9 [facility] [address] 75501 2546 Apr, [facility] [address] 59371- 7807 Apr, Back pain M54.9 [facility] [id number] [place] [address] 04821- 5835 Mar, Type 2 diabetes mellitus with diabetic autonomic (poly) neuropathy E11.43 [facility] [id number] [place] [address] 61646- 2327 Mar, Type 2 diabetes mellitus without complications E11.9 [facility] [id number] [place] [address] 12340- 9241 Mar, Neuropathy G62.9 [facility] [id number] [place] [address] 90959- 8899 Mar, [facility] [id number] [place] [address] 13496- 5962 Mar, Breast cancer screening Z12.39 [facility] [id number] [place] [address] 85637- 2867 Mar, Other dorsalgia M54.89 [facility] [id number] [place] [address] 54750- 4433 Feb, [facility] [id number] [place] [address] 68581- 4641 Jan, Neuropathy G62.9 ; Type 2 diabetes mellitus with diabetic autonomic (poly)neuropathy E11.43 ; Uncomplicated asthma, unspecified asthma severity J45.909 and Encounter for immunization Z23 [facility] [id number] [place] [address] 85354- 0436 Jan, [facility] [id number] [place] [address] 81236- 6746 Jan, [facility] [id number] [place] [address] 29806- 9520 Dec, [facility] [id number] [place] [address] 63210- 9433 Dec, [facility] [id number] [place] [address] 17172- 7845 Nov, [facility] [id number] [place] [address] 36357- 0450 Nov, Back pain M54.9 [facility] [id number] [place] [address] 63817- 9345 Nov, Neuropathy G62.9 ; Mixed hyperlipidemia E78.2 ; Type 2 diabetes mellitus with diabetic autonomic (poly)neuropathy E11.43 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 [facility] [address] 72468- 3197 Oct, [facility] [address] 10556- 6409 Oct, Other dorsalgia M54.89 [facility] [address] 53084- 4412 September, Primary insomnia F51.01 [facility] [address] 16459- 8737 September, [facility] [address] 96793- 2640 Aug, Other dorsalgia M54.89 [facility] [id number] [place] [address] 99476- 2347 Jul, [facility] [id number] [place] [address] 85690- 3844 Jul, Other dorsalgia M54.89 [facility] [id number] [place] [address] 51099- 1534 Jul, Diabetes E11.9 ; Back pain M54.9 ; Neuropathy G62.9 and Gastroparesis K31.84 [facility] [id number] [place] [address] 29854- 6379 Jun, [facility] [id number] [place] [address] 86967- 7172 Jun, Other dorsalgia M54.89 [facility] [id number] [place] [address] 65667- 9528 May, [facility] [id number] [place] [address] 99220- 8264 May, Radicular leg pain M54.10 and Other dorsalgia M54.89 [facility] [id number] [place] [address] 92408- 5973 Apr, [facility] [id number] [place] [address] 22199- 3731 Mar, [facility] [id number] [place] [address] 02989- 4373 Mar, [facility] [id number] [place] [address] 79648- 8112 Mar, Radicular leg pain M54.10 [facility] [id number] [place] [address] 79122- 1174 Feb, [facility] [id number] [place] [address] 78591- 4783 Feb, [facility] [id number] [place] [address] 91501- 9565 Feb, [facility] [id number] [place] [address] 10193- 2937 Jan, [facility] [id number] [place] [address] 93317- 6084 Jan, IBS (irritable bowel syndrome) 564.1 [facility] [id number] [place] [address] 68272- 3868 Jan, [facility] [id number] [place] [address] 15670- 9427 Jan, [facility] [id number] [place] [address] 25965- 6211 Jan, Diabetes mellitus without mention of complication, type II or unspecified type, not stated as uncontrolled 250.00 ; Gastroparesis 536.3 and Hypoacusis 389.9 [facility] [id number] [place] [address] 09621- 1157 Jan, [facility] [id number] [place] [address] 49025- 3827 Jan, [facility] [id number] [place] [address] 54304- 9603 Dec, [facility] [id number] [place] [address] 97870- 6435 Dec, [facility] [id number] [place] [address] 42170- 2356 Dec, [facility] [id number] [place] [address] 86808- 5154 Dec, Back pain 724.5 and Gastroparesis 536.3 [facility] [id number] [place] [address] 98322- 9374 Nov, [facility] [id number] [place] [address] [id number] Nov, Dental examination V72.2 [facility] [id number] [place] [address] 03668- 7719 Nov, [facility] [id number] [place] [address] 63033- 2979 Nov, [facility] [id number] [place] [address] 06839- 1964 Nov, Depressive disorder, not elsewhere classified 311 and No condition on [place] V71.09 [facility] [id number] [place] [address] 52722- 8359 Nov, Diabetes 250.00 and Symptomatic menopausal or female climacteric states 627.2 [facility] [id number] [place] [address] 99014- 3689 Oct, [facility] [id number] [address] 15 Oct, 2014 Lumbar strain 847.2 [facility] [id number] [address] Oct, Gastroparesis 536.3 and Unspecified myalgia and myositis 729.1 [facility] [address] [facility] [id number] [address] 14 Aug, 2014 [facility] [address] [facility] [id number] [address] Aug, [facility] [address] [facility] [id number] [address] Jul, [facility] [id number] [address] Jul, [facility] [id number] [address] Jul, [facility] [id number] [address] Jul, [facility] [id number] [address] Jul, [facility] [id number] [address] Jun, [facility] [id number] [address] Jun, [facility] [address] [facility] [id number] [address] Jun, [facility] [address] [facility] [facility] [id number] [address] May, [facility] [address] [facility] [facility] [id number] [id number] [address] May, [facility] [address] [id number] [address] Mar, [facility] [place] [facility] [address] [id number] [place] [address] Mar, [facility] [place] [facility] [address] [id number] [place] [address] [address] Mar, [facility] [place] [facility] [address] [id number] [place] [address] Mar, [facility] [place] [facility] [address] [id number] [place] [address] Mar, [facility] [place] [facility] [address] [id number] [place] [address] Mar, [facility] [place] [facility] [address] [id number] [place] [address] Feb, [facility] [place] [facility] [address] [id number] [place] [address] Feb, [facility] [place] [facility] [address] [id number] [place] [address] Nov, [facility] [place] [facility] [address] [id number] [place] [address] Nov, [facility] [place] [facility] [address] [id number] [place] [address] Nov, [facility] [place] [facility] [address] [id number] [place] [address] Oct, [facility] [place] [facility] [address] [id number] [address] September, [facility] [place] [facility] [address] [id number] [place] [address] Aug, [facility] [place] [facility] [address] [id number] [place] [address] 15 Aug, 2012 [facility] [place] [facility] [address] [id number] [place] [address] Aug, [facility] [place] [facility] [address] [id number], [place] [address] Aug, [facility] [address] [id number] [place] [address] Aug, [facility] [place] [facility] [address] [id number] [address] Aug, [facility] [place] [facility] [address] [facility] [id number] [place] [address]- [address] Aug, [facility] [place] [facility] [address] [id number] [place] [address] Aug, [facility] [address] [id number] [place] [address] Jul, [facility] [place] [facility] [address] [id number] [place] [address] Jul, [facility] [address] [id number] [place] [address] Jun, [facility] [place] [facility] [address] [facility] [id number] [place] [address] Jun, [facility] [address] [facility] [id number] [place] [address] Jun, [facility] [place] [facility] [address] [facility] [id number] [place] [address] Jun, [facility] [place] [facility] [address] [id number] [place] [address] Jun, [facility] [place] [facility] [address] [facility] [id number] [address] Jun, [facility] [place] [facility] [address] [id number], [place] [address] Jun, [facility] [place] [facility] [address] [facility] [id number], [place] [address] May, [facility] [place] [facility] [address] [id number] [address] May, [facility] [address] [facility] [id number] [place] [address] May, [facility] [address] [facility] [id number] [address] May, [facility] [address] [facility] [id number] [address] Mar, [facility] [address] [facility] [id number] [address] Mar, [facility] [address] [facility] [id number] [address] Jan, IMMUNIZATIONS No Known Immunizations SOCIAL HISTORY [...] High blood sugar 2016 Hospitalization History DKA, vomitting-[facility] 03/05/17 Hospitalization History hospital stay at [facility] for stomach issues 2016
--- OUTSIDE RECORDS SUMMARY | 2018-01-27 20:23 | XMS REPORT ---
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 Name Role Phone NANNETTE SANDOVAL Unavailable PROBLEMS Type Condition ICD9-CM Code UBE10-LP Code Onset Dates Condition Status SNOMED Code Problem Uncomplicated asthma, unspecified asthma severity J45.909 Active 581275352 Problem Weight loss R63.4 Active 000776711 Problem Anorexia R63.0 Active 59887225 Problem PTSD (post-traumatic stress disorder) F43.10 Active 16554084 Problem Diabetic polyneuropathy associated with type 2 diabetes mellitus E11.42 Active 07932145 Problem Primary insomnia F51.01 Active 9614905 Problem History of colon polyps Z86.010 Active 681603499 Problem Reactive depression F32.9 Active 54000252 Problem Asthma exacerbation J45.901 Active 709068136 Problem Depressive disorder, not elsewhere classified 311 Active 08129766 Problem Back pain M54.9 Active 577750280 Problem Gastroparesis K31.84 Active 933869592 Problem Mixed hyperlipidemia E78.2 Active 296432496 Problem Neuropathy G62.9 Active 602962318 Problem Type 2 diabetes mellitus with diabetic autonomic (poly)neuropathy E11.43 Active 41252511 Problem Diabetes E11.9 Active 36904433 Problem alf current use of insulin Z79.4 Active 615332574 ALLERGIES Substance Reaction Event Type Date Status Coumadin vomitied blood Drug Allergy Jan, Active Toradol swells, itch from inside out Drug Allergy Jan, Active Nsaids (non-steroidal Anti-inflammatory Drug) triggers asthma, can't breathe, swells form inside out. Non Drug Allergy Jan, Active ENCOUNTERS Encounter Location Date Diagnosis [facility] [address] [facility] [id number], [place] [address] September, [facility] [address] [facility] [id number], [place] [address] September, [facility] [address] [id number] [id number] Aug, [facility] [id number] [place] [address] 03052- 6991 Aug, [facility] [id number] [address] 89970- 4236 Aug, Other dorsalgia M54.89 [facility] [id number] [place] [address] 01255 2542 Aug, Type 2 diabetes mellitus with diabetic autonomic (poly) neuropathy E11.43 ; Diabetic polyneuropathy associated with type 2 diabetes mellitus E11.42 ; Bronchitis J40 ; Gastroparesis K31.84 and Reactive depression F32.9 [facility] [id number] [place] [address] 70426- 9907 Aug, PTSD (post-traumatic stress disorder) F43.10 [facility] [address] [id number] [address]69 Aug, Other dorsalgia M54.89 and Anorexia R63.0 [facility] [id number] [place] [address] 69041- 4166 Jul, [facility] [address] [address] 0451 Jul, Other dorsalgia M54.89 [facility] [id number] [place] [address] 81240- 0210 Jul, [facility] [id number] [place] [address] 67571- 0636 Jul, [facility] [id number] [place] [address] 96540- 2036 Jul, PTSD (post-traumatic stress disorder) F43.10 [facility] [id number] [place] [address] 62654 2546 Jul, [facility] [id number] [place] [address] 11711- 2811 Jul, [facility] [address] 96387- 2556 Jul, [facility] [id number] [place] [address] 39681 2546 Jul, Anorexia R63.0 [facility] [address] 38755- 0746 Jun, [facility] [id number] [place] [address] 19476- 0807 Jun, Vaginal discharge N89.8 ; Visit for gynecologic examination Z01.419 and Pelvic pressure in female R10.2 [facility] [id number] [place] [address] 08850- 8546 Jun, [facility] [address] 11511- 2442 Jun, Other dorsalgia M54.89 [facility] [id number] [place] [address] 22676- 0736 Jun, [facility] [id number] [place] [address] 84552- 7990 Jun, [facility] [id number] [place] [address] 31110- 1276 Jun, [facility] [id number] [place] [address] 05290 254 May, Back pain M54.9 [facility] [id number] [place] [address] 49118 2546 May, Anorexia R63.0 [facility] [id number] [place] [address] 48923- 6056 May, Other dorsalgia M54.89 [facility] [id number] [place] [address] 66016- 9221 May, [address] [place] [id number] [place] [address] 13682- 2842 May, Bronchitis J40 [address] [address] 10560- 5388 May, Type 2 diabetes mellitus with diabetic autonomic (poly) neuropathy E11.43 ; alf current use of insulin Z79.4 ; Back pain M54.9 and Neuropathy G62.9 [place] [address] 24034- 8734 May, Left breast mass N63.20 [address] [address] 00831- 4647 May, [place] [address] 58287- 7813 Apr, Other dorsalgia M54.89 [place] [address] 07792- 2676 Apr, Anorexia R63.0 [place] [address] 18589- 3600 Apr, Anorexia R63.0 [place] [address] 50827- 3242 Apr, Mass of left breast N63.20 [place] [id number] [place] [address] 38009- 0759 Apr, [place] [address] 87376- 1433 Apr, [place] [address] 54596- 1173 14 Apr, 2017 Diarrhea of presumed infectious origin A09 [place] [address] 39810- 3428 Apr, Encounter for immunization Z23 [place] [address] 36606- 8179 Apr, [facility] [id number] [place] [address] 00629- 1824 Mar, Other dorsalgia M54.89 [facility] [id number] [place] [address] 08658- 1000 Mar, [facility] [id number] [place] [address] 45498- 7931 Mar, [facility] [id number] [place] [address] 42532- 3572 Mar, Anorexia R63.0 [facility] [address] 81920- 8346 Mar, [facility] [id number] [place] [address] 39373- 7103 Mar, Other dorsalgia M54.89 [facility] [address] 80318- 8180 Mar, [facility] [id number] [place] [address] 96758- 8022 Mar, Encounter for immunization Z23 [facility] [id number] [place] [address] 48521- 5441 Feb, Anorexia R63.0 [facility] [id number] [place] [address] 14108- 2630 Feb, Diabetes E11.9 [facility] [id number] [place] [address] 14663- 3777 Feb, Back pain M54.9 and Diabetes E11.9 [facility] [id number] [place] [address] 69404- 3177 Feb, Diabetes E11.9 [facility] [id number] [place] [address] 70792- 8158 Feb, Neuropathy G62.9 [facility] [id number] [place] [address] 47522- 9858 Feb, Encounter for immunization Z23 ; Epigastric pain R10.13 ; Weight loss, abnormal R63.4 and Neuropathy G62.9 [facility] [address] [id number] Feb, [facility] [address] 52105- 8203 Feb, [facility] [address] 51054- 8256 Feb, Intractable vomiting with nausea, unspecified vomiting type R11.2 [facility] [address] 99161 -9226 Feb, Chronic nausea R11.0 [facility] [address] 23614- 0580 Feb, Other dorsalgia M54.89 [facility] [address] 07962- 0610 Jan, [facility] [address] 56379- 7665 Jan, [facility] [address] 49329- 7983 Jan, [facility] [address] 63530- 9764 Jan, [facility] [address] 37678- 0905 Jan, Asthma exacerbation J45.901 ; Bronchitis J40 and Neuropathy G62.9 [facility] [address] 73352- 4600 Jan, Anorexia R63.0 [facility] [address] 08290- 6323 Jan, Other dorsalgia M54.89 [facility] [address] 45592- 3810 Dec, [facility] [id number] [place] [address] 77559- 2195 Dec, [facility] [id number] [place] [address] 97804- 3248 Dec, Anorexia R63.0 [facility] [id number] [place] [address] 85082- 5873 Dec, Primary insomnia F51.01 [facility] [address] 52535- 0659 Dec, Other dorsalgia M54.89 [facility] [address] 02014- 0593 Dec, [facility] [id number] [place] [address] 56671- 2472 Nov, [facility] [id number] [place] [address] 09179- 8707 Nov, [facility] [id number] [place] [address] 41133- 2028 Nov, [facility] [id number] [place] [address] 85658- 2184 Nov, History of colon polyps Z86.010 [facility] [id number] [place] [address] 23470- 7983 Nov, Weight loss R63.4 ; Nausea and vomiting, intractability of vomiting not specified, unspecified vomiting type R11.2 and Abnormal LFTs R79.89 [facility] [id number] [place] [address] 80752- 5312 Nov, [facility] [id number] [place] [address] 65876- 4408 Nov, Neuropathy G62.9 and Pain in right knee M25.561 [facility] [id number] [place] [address] 83428- 8782 Nov, Back pain M54.9 [facility] [address] [address]- 9122 10 Nov, 2016 [facility] [id number] [place] [address] 68211- 3100 08 Nov, 2016 Bronchitis J40 [facility] [id number] [place] [address] 31165- 6784 Nov, Weight loss R63.4 [facility] [id number] [place] [address] 59321- 2475 Oct, Back pain M54.9 [facility] [id number] [place] [address] 90051- 9016 Oct, [facility] [id number] [place] [address] 39640- 1067 Oct, Back pain M54.9 [facility] [id number] [place] [address] 74940- 3871 Oct, Type 2 diabetes mellitus without complications E11.9 and Bronchitis J40 [facility] [id number] [place] [address] 29480- 0891 Oct, [facility] [id number] [place] [address] 41295- 5972 Oct, [facility] [id number] [place] [address] 72772- 1889 September, Gastroparesis K31.84 ; Type 2 diabetes mellitus with diabetic autonomic (poly)neuropathy E11.43 and Neuropathy G62.9 [facility] [address] [place] [address] 73789- 9281 September, Other dorsalgia M54.89 [facility] [id number] [place] [address] 36439- 3670 September, [facility] [id number] [place] [address] 55364- 0248 September, [facility] [address] 32267- 4552 Aug, Gastroparesis K31.84 and Radicular leg pain M54.10 [facility] [address] 48744- 7310 Aug, Anorexia R63.0 [facility] [address] 23999- 8107 Aug, Bronchitis J40 [facility] [address] 72896- 5337 Aug, Back pain M54.9 [place] [address] 19855- 0618 Aug, Routine gynecological examination Z01.419 ; Routine screening for STI (sexually transmitted infection) Z11.3 and Yeast infection of the vagina B37.3 [place] [address] 07441- 5206 Jul, Other dorsalgia M54.89 [facility] [address] 53910- 4751 Jul, Diabetes E11.9 and Gastroparesis K31.84 [facility] [address] 45013- 3200 Jun, [facility] [address] 58110- 4690 Jun, Back pain M54.9 [facility] [address] 49110- 4432 Jun, Neuropathy G62.9 [facility] [address] [id number] Jun, 2016 Encounter for dental examination Z01.20 [facility] [address] 41707- 7436 Jun, Gastroparesis 536.3 and Anorexia R63.0 [facility] [address] 82775 2546 27 May, 2016 Other dorsalgia M54.89 [facility] [address] 43908 2546 May, Periumbilical abdominal pain R10.33 ; Weight loss R63.4 and Gastroparesis K31.84 [facility] [address] 70089 2546 May, Back pain M54.9 [facility] [address] 25902 2546 Apr, Anorexia R63.0 [facility] [address] 56898 2546 Apr, Anorexia R63.0 [facility] [address] 49559 2546 16 Apr, 2016 Back pain M54.9 [facility] [address] 40026 2546 Apr, Back pain M54.9 [facility] [address] 75553 2546 Apr, [facility] [address] 41897 2546 Apr, Bronchitis J40 and Neuropathy G62.9 [facility] [address] 67994 2546 Apr, Neuropathy G62.9 [facility] [address] 40955 2546 Apr, [facility] [address] 04787 2546 Apr, Back pain M54.9 [facility] [id number] [place] [address] 69671 2546 Mar, Type 2 diabetes mellitus with diabetic autonomic (poly) neuropathy E11.43 [facility] [id number] [place] [address] 31184- 8086 Mar, Type 2 diabetes mellitus without complications E11.9 [facility] [id number] [place] [address] 60089- 2602 Mar, Neuropathy G62.9 [facility] [id number] [place] [address] 74473- 0016 Mar, [facility] [id number] [place] [address] 56169- 1592 Mar, Breast cancer screening Z12.39 [facility] [address] 80175- 5252 Mar, Other dorsalgia M54.89 [facility] [id number] [place] [address] 58665- 8763 Feb, [facility] [address] 53058- 6314 Jan, Neuropathy G62.9 ; Type 2 diabetes mellitus with diabetic autonomic (poly)neuropathy E11.43 ; Uncomplicated asthma, unspecified asthma severity J45.909 and Encounter for immunization Z23 [facility] [id number] [place] [address] 33314- 6114 Jan, [facility] [id number] [place] [address] 43228- 3520 Jan, [facility] [id number] [place] [address] 93893- 9572 Dec, [facility] [id number] [place] [address] 26580- 0299 Dec, [facility] [id number] [place] [address] 63568- 7551 Nov, [facility] [id number] [place] [address] 11977- 7747 Nov, Back pain M54.9 [facility] [address] [place] [address]- 1432 Nov, Neuropathy G62.9 ; Mixed hyperlipidemia E78.2 ; Type 2 diabetes mellitus with diabetic autonomic (poly)neuropathy E11.43 and alf current use of insulin Z79.4 [facility] [id number] [place] [address] 19074- 2405 Oct, [facility] [address] 53822- 9772 Oct, Other dorsalgia M54.89 [facility] [address] 98904- 4208 September, Primary insomnia F51.01 [facility] [address] 15704- 4436 September, [facility] [address] 13005- 0526 Aug, Other dorsalgia M54.89 [facility] [id number] [place] [address] 35149- 9335 Jul, [facility] [address] 33037- 4617 Jul, Other dorsalgia M54.89 [facility] [id number] [place] [address] 46213- 3350 Jul, Diabetes E11.9 ; Back pain M54.9 ; Neuropathy G62.9 and Gastroparesis K31.84 [facility] [id number] [place] [address] 85236- 5995 Jun, [facility] [id number] [place] [address] 16685- 5443 Jun, Other dorsalgia M54.89 [facility] [id number] [place] [address] 50995- 5608 May, [facility] [address] 51951- 0173 May, Radicular leg pain M54.10 and Other dorsalgia M54.89 [facility] [id number] [place] [address] 77745- 4518 Apr, [facility] [id number] [place] [address] 66432- 8006 Mar, [facility] [id number] [place] [address] 46239- 3883 Mar, [facility] [id number] [place] [address] 68232- 8879 Mar, Radicular leg pain M54.10 [facility] [id number] [place] [address] 28835- 2613 Feb, [facility] [id number] [place] [address] 24962- 0106 Feb, [facility] [id number] [place] [address] 93853- 2275 Feb, [facility] [id number] [place] [address] 76168- 6604 Jan, [facility] [id number] [place] [address] 69547- 0773 Jan, IBS (irritable bowel syndrome) 564.1 [facility] [id number] [place] [address] 78613- 7424 Jan, [facility] [id number] [place] [address] 84916- 2241 Jan, [facility] [id number] [place] [address] 45365- 1522 Jan, Diabetes mellitus without mention of complication, type II or unspecified type, not stated as uncontrolled 250.00 ; Gastroparesis 536.3 and Hypoacusis 389.9 [facility] [id number] [place] [address] 36031- 8804 Jan, [facility] [address] [address]- 6064 Jan, [facility] [id number] [place] [address] 23775- 5345 Dec, [facility] [address] [address]- 7797 Dec, [facility] [id number] [place] [address] 17215- 8861 Dec, [facility] [id number] [place] [address] 27773- 1296 Dec, Back pain 724.5 and Gastroparesis 536.3 [facility] [id number] [place] [address] 33251- 2479 Nov, [facility] [id number] [place] [address] [id number] Nov, Dental examination V72.2 [facility] [id number] [place] [address] 06991- 3379 Nov, [facility] [id number] [place] [address] 28229- 6448 Nov, [facility] [id number] [place] [address] 70585- 4538 Nov, Depressive disorder, not elsewhere classified 311 and No condition on [place] V71.09 [facility] [address], [place] [address]- 3489 Nov, Diabetes 250.00 and Symptomatic menopausal or female climacteric states 627.2 [facility] [address], [place] [address]- 1825 Oct, [facility] [id number] [place] [address] 33647- 4830 Oct, Lumbar strain 847.2 [facility] [id number], [place] [address] Oct, Gastroparesis 536.3 and Unspecified myalgia and myositis 729.1 [facility] [id number], [place] [address] 14 Aug, 2014 [facility] [address] [facility] [id number], [place] [address] Aug, [facility] [address] [facility] [id number], [place] [address] Jul, [facility] [address] [facility] [id number], [place] [address] Jul, [facility] [id number] [place] [address] Jul, [facility] [address] [facility] [id number] [place] [address] Jul, [facility] [id number], [place] [address] Jul, [facility] [address] [facility] [id number], [place] [address] Jun, [facility] [id number], [place] [address] Jun, [facility] [id number] [address] Jun, [facility] [id number], [place] [address] May, [facility] [id number], [place] [address] May, [facility] [id number], [place] [address] Mar, [facility] [address] [facility] [id number], [place] [address] Mar, [facility] [id number], [place] [address] Mar, [facility] [place] [facility] [address] [id number] [place] [address] Mar, [facility] [place] [facility] [address] [id number] [place] [address] Mar, [facility] [place] [facility] [address] [id number] [place] [address] Mar, [facility] [place] [facility] [address] [id number] [place] [address] Feb, [facility] [place] [facility] [address] [id number] [place] [address] Feb, [facility] [place] [facility] [address] [id number] [place] [address] Nov, [facility] [place] [facility] [address] [id number] [place] [address] Nov, [facility] [place] [facility] [address] [id number] [place] [address] Nov, [facility] [place] [facility] [address] [id number] [place] [address] Oct, [facility] [place] [facility] [address] [id number], [place] [address] September, [facility] [place] [facility] [address] [address] [id number] [place] [address] Aug, [facility] [place] [facility] [address] [id number], [place] [address] 15 Aug, 2012 [facility] [place] [facility] [address] [id number] [place] [address] Aug, [facility] [place] [facility] [address] [id number] [place] [address] Aug, [facility] [place] [facility] [address] [id number], [place] [address] 10 Aug, 2012 [facility] [place] [facility] [address] [id number], [place] [address] Aug, [facility] [address] [id number] [place] [address] Aug, [facility] [place] [facility] [address] [id number] [place] [address] Aug, [facility] [address] [id number] [place] [address] Jul, [facility] [place] [facility] [address] [id number] [place] [address] Jul, [facility] [address] [id number] [place] [address] Jun, [facility] [place] [facility] [address] [id number] [place] [address] Jun, [facility] [address] [facility] [id number] [place] [address] Jun, [facility] [address] [id number] [place] [address] 08 Jun, 2012 [facility] [address] [id number] [place] [address] 07 Jun, 2012 [facility] [address] [facility] [id number] [place] [address] 07 Jun, 2012 [facility] [place] [facility] [address] [facility] [id number] [place] [address] Jun, [facility] [place] [facility] [address] [id number] [place] [address] May, [facility] [place] [facility] [address] [id number] [place] [address] May, [facility] [place] [facility] [address] [facility] [id number] [place] [address] May, [facility] [place] [facility] [address] [id number] [place] [address] May, [facility] [address] [facility] [id number] [place] [address] Mar, [facility] [address] [facility] [id number][place] [id number] Mar, [facility] [address] [facility] [id number][place] [id number] Jan, IMMUNIZATIONS No Known Immunizations SOCIAL HISTORY Never Assessed REASON FOR VISIT Cough-ESPERANZA Hodge PLAN OF CARE Activity Details Follow Up prn Reason: VITAL SIGNS Height 62 in 2017-01-31 Weight 89.8 lbs 2017-01-31 Temperature 98.1 degrees Fahrenheit 2017-01-31 Heart Rate 88 bpm 2017-01-31 Respiratory Rate 18 2017-01-31 Oximetry 99 % 2017-01-31 BMI 16.42 kg/m2 2017-01-31 Blood pressure systolic 96 mmHg 2017-01-31 Blood pressure diastolic 60 mmHg 2017-01-31 MEDICATIONS Medication Instructions Dosage Frequency Start Date End Date Duration Status Multiple Vitamins-Iron - Orally Once a day 1 tablet 24h Active Acetaminophen 500 mg Orally at bedtime 2 capsules Active Ayden Contour Next Test - subcutaneously 3 times a day test blood sugar 8h Active Comfort Lancets - as directed 8h Mar, Active Sucralfate 1 GM Orally Twice a day 1 tablet on an empty stomach 12h Active Lyrica 150 MG Orally Twice a day 1 capsule 12h 30 days Active Lantus SoloStar 100 Subcutaneous Once a day 10 units at bedtime 24h Active Zofran ODT 8 MG Orally every 6 hrs 1 tablet 6h Active Albuterol Sulfate 90 mcg/actuation Orally 4 times a day inhale 2 puffs by Inhalation route 4 times per day as needed PRN 6h Jul, Active Tizanidine HCl 4 MG Orally 2 times a day 1 tablet as needed 12h Active Omeprazole 40 mg 1 CAP(S) ONCE A DAY ORALLY 30 DAYS 30 Active [facility] [place] 31G X 6 MM 1 THREE TIMES A DAY Active Quad Cane - as directed 24h Apr, Active Reglan 10 Orally 4 times a day 1 tablet 6h Active Promethazine-Codeine 6.25-10 MG/5ML Orally every 6 hrs 5 ml as needed 6h Jan, Active Marinol 5 mg Orally Twice a day 1 capsule before lunch and supper 12h 14 days Active Humalog KwikPen 100 INJECT 8 u ac Active MiraLax - Orally Once a day as needed 1 packet mixed with 8 ounces of fluid Active Escitalopram Oxalate 20 mg Orally Once a day 1 tablet 24h Active Cyanocobalamin 1000 MCG Orally Once a day 1 tablet 24h Active Xarelto 20 mg 1 Tablet by Oral route 1 time per day Jul, Active Atorvastatin Calcium 40 MG Orally Once a day 1 tablet 24h Active Oxycodone-Acetaminophen 10-325 MG Orally 4 times a day 1 tablet as needed 6h 07 Jan, 2017 28 days Active RESULTS No Results PROCEDURES Procedure Date Ordered Result Body Site MEASURE BLOOD OXYGEN LEVEL Jan 31, 2017 [facility] VISIT ESTABLISHED PATIENT Jan 31, 2017 INSTRUCTIONS MEDICATIONS ADMINISTERED No Known Medications [...] High blood sugar 2016 Hospitalization History DKA, vomitting-[facility] 03/05/17 Hospitalization History hospital stay at [facility] for stomach issues 2016
--- OUTSIDE RECORDS SUMMARY | 2018-01-27 20:24 | XMS REPORT ---
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 Name Role Phone HORACE HIGGINS Unavailable PROBLEMS Type Condition ICD9-CM Code ITQ02-HJ Code Onset Dates Condition Status SNOMED Code Problem History of colon polyps Z86.010 Active 341860176 Problem Asthma exacerbation J45.901 Active 331164644 Problem Primary insomnia F51.01 Active 0740467 Problem Tobacco dependency F17.200 Active 52901530 Problem Low TSH level R94.6 Active 708835616 Problem Annual physical exam Z00.00 Active 863726975 Problem Diabetic polyneuropathy associated with type 2 diabetes mellitus E11.42 Active 14201426 Problem Reactive depression F32.9 Active 00885804 Problem Migraine without aura and without status migrainosus, not intractable G43.009 Active 799015399 Problem PTSD (post-traumatic stress disorder) F43.10 Active 48342061 Problem Diabetes E11.9 Active 53124318 Problem Gastroparesis K31.84 Active 347204558 Problem Back pain M54.9 Active 128569624 Problem Neuropathy G62.9 Active 768674404 Problem Type 2 diabetes mellitus with diabetic autonomic (poly)neuropathy E11.43 Active 20613739 Problem Uncomplicated asthma, unspecified asthma severity J45.909 Active 107522278 Problem skilled nursing current use of insulin Z79.4 Active 099060483 Problem Anorexia R63.0 Active 92912006 Problem Mixed hyperlipidemia E78.2 Active 534536060 Problem Weight loss R63.4 Active 037957502 ALLERGIES No Information ENCOUNTERS Encounter Location Date Diagnosis [facility] [address] [address] Jan, [facility] [address] [address] Oct, [facility] [address] [place] [id number] [place] [address] 40915- 8026 27 Oct, 2017 [place] [address] [address]01- [address]272 Oct, [place] [address] 28141- 7575 19 Oct, 2017 PTSD (post-traumatic stress disorder) F43.10 and Tobacco dependency F17.200 [place] [address] 04144- 4708 Oct, [place] [address] 74345- 9602 Oct, Other dorsalgia M54.89 [place] [address] 29597- 1620 Oct, Anorexia R63.0 [place] [address] 51958- 9074 September, PTSD (post-traumatic stress disorder) F43.10 [place] [address] [place] [id number] [place] [address] 57255- 4236 September, Low TSH level R94.6 [place] [address] 26560- 7826 September, Other dorsalgia M54.89 [place] [address] [place] [id number] [place] [address] 03759- 8571 September, Annual physical exam Z00.00 and Migraine without aura and without status migrainosus, not intractable G43.009 [place] [address] [place] [id number] [place] [address] 53308- 9035 September, Abnormal TSH R94.6 and Dysfunction of left eustachian tube H69.82 [place] [address] [place] [id number] [place] [address] 24090- 6598 Aug, [place] [address] 74736- 5092 Aug, Anorexia R63.0 [facility] [id number] [place] [address] [id number] Aug, Dental examination Z01.20 and Xerostomia K11.7 [facility] [id number] [place] [address] 40412- 7714 Aug, Neuropathy G62.9 [facility] [address] 01369- 2222 Aug, [facility] [address] [place] [id number] [place] [address] 03074- 0930 Aug, Other dorsalgia M54.89 [place] [address] [place] [id number] [place] [address] 85944- 8229 Aug, Type 2 diabetes mellitus with diabetic autonomic (poly) neuropathy E11.43 ; Diabetic polyneuropathy associated with type 2 diabetes mellitus E11.42 ; Bronchitis J40 ; Gastroparesis K31.84 and Reactive depression F32.9 [facility] [address] [place] [id number] [place] [address] 62578- 5961 Aug, PTSD (post-traumatic stress disorder) F43.10 [facility] [address] [place] [id number] [place] [address] 96431- 0130 Aug, Other dorsalgia M54.89 and Anorexia R63.0 [facility] [address] [place] [id number] [place] [address] 11523- 1905 Jul, [facility] [address] [id number] [place] [address] 26994- 8402 Jul, Other dorsalgia M54.89 [facility] [address] [id number] [place] [address] 38891- 7764 Jul, [facility] [address] [id number] [place] [address] 37501- 8855 Jul, [facility] [address] [id number] [place] [address] 31921- 3081 Jul, PTSD (post-traumatic stress disorder) F43.10 [facility] [id number] [place] [address] 95055 2546 Jul, [facility] [id number] [place] [address] 26387 2546 Jul, [facility] [id number] [place] [address] 49129 2546 Jul, [facility] [id number] [place] [address] 73371 2546 Jul, Anorexia R63.0 [facility] [id number] [place] [address] 73086 2546 Jun, [facility] [address] [place] [id number] [place] [address] 19458 2546 Jun, Vaginal discharge N89.8 ; Visit for gynecologic examination Z01.419 and Pelvic pressure in female R10.2 [facility] [address] [place] [id number] [place] [address] 76031 2546 Jun, [facility] [address] [place] [id number] [place] [address] 01096 2546 20 Jun, 2017 Other dorsalgia M54.89 [facility] [address] [id number] [place] [address] 79382 2546 16 Jun, 2017 [facility] [address] [place] [id number] [place] [address] 13352 2546 Jun, [facility] [address] [place] [id number] [place] [address] 07182 2546 Jun, [facility] [address] 78089 2546 May, Back pain M54.9 [facility] [address] [id number] [place] [address] 74842 2546 May, Anorexia R63.0 [facility] [address] 30210- 7201 May, Other dorsalgia M54.89 [facility] [address] 56359- 7940 May, [facility] [address] [place] [id number]- 4458 May, Bronchitis J40 [facility] [address] 735458- 5350 May, Type 2 diabetes mellitus with diabetic autonomic (poly) neuropathy E11.43 ; skilled nursing current use of insulin Z79.4 ; Back pain M54.9 and Neuropathy G62.9 [facility] [address] 99772- 1361 May, Left breast mass N63.20 [facility] [address] 92181- 5936 May, [facility] [address] 50962- 7972 Apr, Other dorsalgia M54.89 [facility] [address] 30633 2546 Apr, Anorexia R63.0 [facility] [address] 69776 2546 Apr, Anorexia R63.0 [facility] [address] 11819 2546 Apr, Mass of left breast N63.20 [facility] [address] [place] [id number] [place] [address] 62358- 8216 Apr, [facility] [address] 86946 2546 Apr, [facility] [address] 91552- 1338 14 Apr, 2017 Diarrhea of presumed infectious origin A09 [facility] [address] [place] [address]- 4612 Apr, Encounter for immunization Z23 [facility] [address] 13925- 0070 Apr, [facility] [address] [id number] [place] [address] 24535- 9553 Mar, Other dorsalgia M54.89 [facility] [address] 25004- 0056 Mar, [facility] [address] 74876- 5137 Mar, [facility] [address] 92740- 2855 Mar, Anorexia R63.0 [facility] [address] 95252- 3310 Mar, [facility] [address] 49998- 4731 Mar, Other dorsalgia M54.89 [facility] [address] [place] [place] [id number] [place] [address] 39907- 6707 Mar, [facility] [address] [place] [id number] [place] [address] 29439- 0924 Mar, Encounter for immunization Z23 [facility] [address] [place] [id number] [place] [address] 19179- 6944 Feb, Anorexia R63.0 [facility] [address] [place] [place] [id number] [place] [address] 20522- 3425 Feb, Diabetes E11.9 [facility] [address] 30267- 3040 Feb, Back pain M54.9 and Diabetes E11.9 [facility] [address] [place] [id number] [place] [address] 68878- 8465 Feb, Diabetes E11.9 [facility] [address] 78413- 0594 Feb, Neuropathy G62.9 [facility] [address] 08605- 1221 Feb, Encounter for immunization Z23 ; Epigastric pain R10.13 ; Weight loss, abnormal R63.4 and Neuropathy G62.9 [facility] [address] [id number] Feb, [facility] [address] 30702- 6469 Feb, [facility] [address] 89453- 3062 Feb, Intractable vomiting with nausea, unspecified vomiting type R11.2 [facility] [address] 98476 -5172 Feb, Chronic nausea R11.0 [facility] [address] 88960- 1206 Feb, Other dorsalgia M54.89 [facility] [address] 83329- 4559 Jan, [facility] [address] 97911- 3034 Jan, [facility] [address] 23737- 6794 Jan, [facility] [address] 87193- 1005 Jan, [facility] [address] 61713- 2552 Jan, Asthma exacerbation J45.901 ; Bronchitis J40 and Neuropathy G62.9 [facility] [address] 19038- 9147 Jan, Anorexia R63.0 [facility] [address] 76973- 5536 Jan, Other dorsalgia M54.89 [facility] [address] [place] [id number] [place] [address] 06664- 7346 Dec, [facility] [address] [place] [id number] [place] [address] 41847 2546 Dec, [facility] [address] [place] [id number] [place] [address] 60391- 6936 Dec, Anorexia R63.0 [facility] [address] [place] [id number] [place] [address] 73899- 6046 Dec, Primary insomnia F51.01 [facility] [address] [place] [id number] [place] [address] 27687- 9736 Dec, Other dorsalgia M54.89 [facility] [address] [place] [id number] [place] [address] 14090- 4426 Dec, [facility] [address] [place] [id number] [place] [address] 30392- 6346 Nov, [facility] [id number] [place] [address] 68758- 9550 Nov, [facility] [id number] [place] [address] 98088- 5021 Nov, [facility] [address] [place] [id number] [place] [address] 16138- 6619 Nov, History of colon polyps Z86.010 [facility] [address] [place] [id number] [place] [address] 16188- 2023 Nov, Weight loss R63.4 ; Nausea and vomiting, intractability of vomiting not specified, unspecified vomiting type R11.2 and Abnormal LFTs R79.89 [facility] [address] [place] [id number] [place] [address] 77516- 0306 Nov, [facility] [address] [place] [id number] [place] [address] 60352- 7322 Nov, Neuropathy G62.9 and Pain in right knee M25.561 [facility] [address] [address]- 9510 12 Nov, 2016 Back pain M54.9 [facility] [id number] [place] [address] 07431- 0656 10 Nov, 2016 [facility] [address] [place] [place] [id number] [place] [address] 86036- 2596 08 Nov, 2016 Bronchitis J40 [facility] [address] [place] [id number] [place] [address] 55159- 0031 03 Nov, 2016 Weight loss R63.4 [facility] [address] [place] [id number] [place] [address] 36828- 8881 16 Oct, 2016 Back pain M54.9 [facility] [address] [place] [id number] [place] [address] 50688- 4714 16 Oct, 2016 [facility] [address] [place] [id number] [place] [address] 92363- 3015 14 Oct, 2016 Back pain M54.9 [facility] [address] [place] [id number] [place] [address] 44866- 3909 13 Oct, 2016 Type 2 diabetes mellitus without complications E11.9 and Bronchitis J40 [facility] [id number] [place] [address] 68818- 3050 05 Oct, 2016 [facility] [address] [place] [id number] [place] [address] 18794- 1604 Oct, [facility] [address] [place] [address] 44508- 1187 September, Gastroparesis K31.84 ; Type 2 diabetes mellitus with diabetic autonomic (poly)neuropathy E11.43 and Neuropathy G62.9 [facility] [address] [place] [address] 79650- 0983 September, Other dorsalgia M54.89 [facility] [address] [id number] [place] [address] 16617- 3278 September, [facility] [id number] [place] [address] 24020- 4399 September, [facility] [address] [id number] [place] [address] 03692- 5272 Aug, Gastroparesis K31.84 and Radicular leg pain M54.10 [facility] [address] [place] [id number] [place] [address] 40913- 5825 Aug, Anorexia R63.0 [facility] [address] [place] [id number] [place] [address] 34389- 9455 Aug, Bronchitis J40 [place] [address] 15016- 4343 Aug, Back pain M54.9 [place] [address] [place] [id number] [place] [address] 16715- 7854 Aug, Routine gynecological examination Z01.419 ; Routine screening for STI (sexually transmitted infection) Z11.3 and Yeast infection of the vagina B37.3 [facility] [address] [id number] [place] [address] 05180- 7347 Jul, Other dorsalgia M54.89 [facility] [address] [place] [id number] [place] [address] 91157- 6974 Jul, Diabetes E11.9 and Gastroparesis K31.84 [facility] [address] [place] [id number] [place] [address] 55706- 7114 Jun, [facility] [id number] [place] [address] 21094- 0744 Jun, Back pain M54.9 [facility] [address] [id number] [place] [address] 90105- 2749 14 Jun, 2016 Neuropathy G62.9 [facility] [address] [place] [address] [id number] 02 Jun, 2016 Encounter for dental examination Z01.20 [facility] [address] [id number] [place] [address] 37152 2546 Jun, Gastroparesis 536.3 and Anorexia R63.0 [facility] [address] 20244 2546 May, Other dorsalgia M54.89 [facility] [address] 21404 2546 May, Periumbilical abdominal pain R10.33 ; Weight loss R63.4 and Gastroparesis K31.84 [facility] [address] 24209 2546 May, Back pain M54.9 [facility] [address] 18537 2546 Apr, Anorexia R63.0 [facility] [address] 84268 2546 Apr, Anorexia R63.0 [facility] [address] 41048 2546 Apr, Back pain M54.9 [facility] [address] 81471 2546 Apr, Back pain M54.9 [facility] [address] 60625 2546 Apr, [facility] [address] 20954 2546 Apr, Bronchitis J40 and Neuropathy G62.9 [facility] [address] [place] [id number] [place] [address] 17926 2546 Apr, Neuropathy G62.9 [facility] [id number] [place] [address] 37462 2546 Apr, [facility] [address] [place] [id number] [place] [address] 27161 2546 Apr, Back pain M54.9 [facility] [id number] [place] [address] 22450- 5880 Mar, Type 2 diabetes mellitus with diabetic autonomic (poly) neuropathy E11.43 [facility] [id number] [place] [address] 95191- 9323 Mar, Type 2 diabetes mellitus without complications E11.9 [facility] [address] [place] [id number] [place] [address] 57139- 4005 Mar, Neuropathy G62.9 [facility] [address] [place] [id number] [place] [address] 93984- 1787 Mar, [facility] [address] 43654- 7195 Mar, Breast cancer screening Z12.39 [facility] [address] 93598- 0880 Mar, Other dorsalgia M54.89 [facility] [address] 81764- 9710 Feb, [facility] [id number] [place] [address] 34947- 2378 Jan, Neuropathy G62.9 ; Type 2 diabetes mellitus with diabetic autonomic (poly)neuropathy E11.43 ; Uncomplicated asthma, unspecified asthma severity J45.909 and Encounter for immunization Z23 [facility] [id number] [place] [address] 13479- 6591 Jan, [facility] [id number] [place] [address] 29172- 2544 Jan, [facility] [id number] [place] [address] 18774- 4659 Dec, [facility] [id number] [place] [address] 35667- 7860 Dec, [facility] [id number] [place] [address] 76014- 2257 Nov, [facility] [id number] [place] [address] 60291- 5184 Nov, Back pain M54.9 [facility] [id number] [place] [address] 20672- 1354 Nov, Neuropathy G62.9 ; Mixed hyperlipidemia E78.2 ; Type 2 diabetes mellitus with diabetic autonomic (poly)neuropathy E11.43 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 [facility] [id number] [place] [address] 71782- 2213 Oct, [facility] [id number] [place] [address] 02907- 6670 Oct, Other dorsalgia M54.89 [facility] [id number] [place] [address] 41628- 9472 September, Primary insomnia F51.01 [facility] [address] 25425- 6848 September, [facility] [id number] [place] [address] 43464- 3497 Aug, Other dorsalgia M54.89 [facility] [id number] [place] [address] 79805- 7420 Jul, [facility] [id number] [place] [address] 41613- 2478 Jul, Other dorsalgia M54.89 [facility] [id number] [place] [address] 99894- 8956 Jul, Diabetes E11.9 ; Back pain M54.9 ; Neuropathy G62.9 and Gastroparesis K31.84 [facility] [id number] [place] [address] [id number]- [id number] Jun, [facility] [id number] [place] [address] 12528- [id number] Jun, Other dorsalgia M54.89 [facility] [address] [place] [address] May, [facility] [id number] [place] [address] [id number]- 8588 May, Radicular leg pain M54.10 and Other dorsalgia M54.89 [facility] [id number] [place] [address] [id number]- [id number] Apr, [facility] [id number] [place] [address] [id number]- [id number] Mar, [facility] [id number] [place] [address] [id number]- [id number] Mar, [facility] [id number] [place] [address] [id number]- 0652 Mar, Radicular leg pain M54.10 [facility] [id number] [place] [address] [id number]- [id number] Feb, [facility] [id number] [place] [address] [id number]- [phone] Feb, [facility] [id number] [place] [address] [id number]- [id number] Feb, [facility] [id number] [place] [address] [id number]- [id number] Jan, [facility] [id number] [place] [address] [id number]- [id number] Jan, IBS (irritable bowel syndrome) 564.1 [facility] [address] [id number] [place] [address] [id number]- 6014 Jan, [facility] [id number] [place] [address] 26562- 1166 Jan, [facility] [id number] [place] [address] 71774- 9164 Jan, Diabetes mellitus without mention of complication, type II or unspecified type, not stated as uncontrolled 250.00 ; Gastroparesis 536.3 and Hypoacusis 389.9 [facility] [address] [address] Jan, [facility] [id number] [place] [address] [id number]- 3741 Jan, [facility] [id number] [place] [address] 59795- 2959 Dec, [facility] [id number] [place] [address] 07573- 3126 Dec, [facility] [id number] [place] [address] 08237- 3301 Dec, [facility] [id number] [place] [address] 47104- 7422 Dec, Back pain 724.5 and Gastroparesis 536.3 [facility] [id number] [place] [address] 35972- 2453 Nov, [facility] [id number] [place] [address] [id number] Nov, Dental examination V72.2 [facility] [id number] [place] [address] 12175- 7860 Nov, [facility] [id number] [place] [address] 26570- 9301 Nov, [facility] [id number] [place] [address] 25292- 6401 Nov, Depressive disorder, not elsewhere classified 311 and No condition on Burnet II V71.09 [facility] [id number] [place] [address] 87890- 4379 Nov, Diabetes 250.00 and Symptomatic menopausal or female climacteric states 627.2 [facility] [id number] [place] [address] 74572- 2683 Oct, [facility] [id number] [place] [address] 84471- 2462 Oct, Lumbar strain 847.2 [facility] [address] [address] 0369 Oct, Gastroparesis 536.3 and Unspecified myalgia and myositis 729.1 [facility] [address] [facility] [id number] [address] 8679 Aug, [facility] [address] [facility] [id number] [address] 6608 Aug, [facility] [address] [facility] [id number] [address]- 2884 Jul, [facility] [address] [facility] [id number] [address] 0606 Jul, [facility] [address] [address]- 0252 Jul, [facility] [address] [facility] [id number] [address]- 5690 Jul, [facility] [id number] [address]- 9548 Jul, [facility] [id number] [address] 5255 Jun, [facility] [id number] [address]- 3945 Jun, [facility] [address] [facility] [id number] [address] 2688 Jun, [facility] [address] [facility] [id number] [address] 1902 May, [facility] [address] [facility] [id number] [address]- 7653 May, [facility] [address] [id number] [address]- 2519 Mar, [facility] [address] [facility] [id number] [place] [address]- 2767 Mar, [facility] [address] [id number] [place] [address]- 0955 Mar, [facility] [place] [facility] [address] [id number] [place] [address]- 6919 Mar, [facility] [address] [id number] [place] [address]- 8665 Mar, [facility] [place] [facility] [address] [id number] [place] [address]- 3011 Mar, [facility] [place] [facility] [address] [id number] [place] [address]- 4654 Feb, [facility] [place] [facility] [address] [id number] [place] [address]- 3666 Feb, [facility] [address] [id number] [place] [address]- 6750 Nov, [facility] [address] [id number] [place] [address]- 0941 Nov, [facility] [place] [facility] [address] [id number] [place] [address]- 2955 Nov, [facility] [address] [id number] [place] [address]- 9500 Oct, [facility] [place] [facility] [address] [id number] [place] [address]- 8906 September, [facility] [place] [facility] [address] [id number] [place] [address]- 0233 Aug, [facility] [place] [facility] [address] [id number] [place] [address]- 9768 15 Aug, 2012 [facility] [place] [facility] [address] [id number] [place] [address]- 5364 Aug, [facility] [place] [facility] [address] [id number] [place] [address]- 5526 Aug, [facility] [place] [facility] [address] [id number] [place] [address]- 0682 Aug, [facility] [place] [facility] [address] [id number] [place] [address]- 0638 Aug, [facility] [place] [facility] [address] [id number] [place] [address]- 1817 Aug, [facility] [place] [facility] [address] [id number] [place] [address]- 3300 Aug, [facility] [address] [id number] [place] [address]- 9605 Jul, [facility] [place] [facility] [address] [id number] [place] [address]- 7292 Jul, [facility] [address] [facility] [id number] [place] [address]- 2184 Jun, [facility] [address] [id number] [address]- 9757 Jun, [facility] [place] [facility] [address] [id number] [place] [address]- 0053 Jun, [facility] [address] [facility] [id number] [address]- 8756 Jun, [facility] [place] [facility] [address] [id number] [address]- 5129 Jun, [facility] [place] [facility] [address] [id number] [place] [address]- 4633 Jun, [facility] [place] [facility] [address] [id number] [place] [address]- 3095 Jun, [facility] [place] [facility] [address] [id number] [address]- 8488 May, [facility] [place] [facility] [address] [id number] [place] [address]- 7498 May, [facility] [place] [facility] [address] [facility] [id number] [place] [address]- 4266 May, [facility] [address] [facility] [id number] [address]- 4510 May, [facility] [address] [facility] [id number] [place] [address]- 7437 Mar, [facility] [address] [facility] [id number] [place] [address] 2541 Mar, [facility] [address] [facility] [id number] [place] [address]- 9101 Jan, IMMUNIZATIONS No Known Immunizations SOCIAL HISTORY Never Assessed REASON FOR VISIT Marinol refills PLAN OF CARE VITAL SIGNS MEDICATIONS Medication [...] High blood sugar 2016 Hospitalization History DKA, vomitting-[facility] 03/05/17 Hospitalization History hospital stay at [facility] for stomach issues 2016
--- OUTSIDE RECORDS SUMMARY | 2018-01-27 20:24 | XMS REPORT ---
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 Name Role Phone HORACE HIGGINS Unavailable PROBLEMS Type Condition ICD9-CM Code PCA05-PU Code Onset Dates Condition Status SNOMED Code Problem History of colon polyps Z86.010 Active 959236563 Problem Asthma exacerbation J45.901 Active 152911201 Problem Primary insomnia F51.01 Active 0112642 Problem Tobacco dependency F17.200 Active 27445419 Problem Low TSH level R94.6 Active 561892430 Problem Annual physical exam Z00.00 Active 494610154 Problem Diabetic polyneuropathy associated with type 2 diabetes mellitus E11.42 Active 75123048 Problem Reactive depression F32.9 Active 96626464 Problem Migraine without aura and without status migrainosus, not intractable G43.009 Active 705122693 Problem PTSD (post-traumatic stress disorder) F43.10 Active 52678092 Problem Diabetes E11.9 Active 72212085 Problem Gastroparesis K31.84 Active 997242287 Problem Back pain M54.9 Active 458685348 Problem Neuropathy G62.9 Active 786022815 Problem Type 2 diabetes mellitus with diabetic autonomic (poly)neuropathy E11.43 Active 98508005 Problem Uncomplicated asthma, unspecified asthma severity J45.909 Active 142519478 Problem 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 Active 499212456 Problem Anorexia R63.0 Active 05264698 Problem Mixed hyperlipidemia E78.2 Active 127548436 Problem Weight loss R63.4 Active 926962586 ALLERGIES No Information ENCOUNTERS Encounter Location Date Diagnosis [facility] [address] [address] Jan, [facility] [address] [address] Oct, [facility] [address] [place] [id number] [place] [address] 32465- 7407 27 Oct, 2017 [place] [address] [address]- 4792 Oct, [place] [address] 67264- 4496 19 Oct, 2017 PTSD (post-traumatic stress disorder) F43.10 and Tobacco dependency F17.200 [place] [address] 08090- 9045 Oct, [place] [address] 09252- 4210 Oct, Other dorsalgia M54.89 [place] [address] 12837- 8373 Oct, Anorexia R63.0 [place] [address] 39524- 4137 September, PTSD (post-traumatic stress disorder) F43.10 [place] [address] [id number] [place] [address] 10123- 1986 September, Low TSH level R94.6 [place] [address] 45484- 8465 September, Other dorsalgia M54.89 [place] [address] [id number] [place] [address] 21480- 4283 September, Annual physical exam Z00.00 and Migraine without aura and without status migrainosus, not intractable G43.009 [place] [address] [id number] [place] [address] 97239- 1862 September, Abnormal TSH R94.6 and Dysfunction of left eustachian tube H69.82 [place] [address] [id number] [place] [address] 38908- 4556 Aug, [place] [address] 58513- 7628 Aug, Anorexia R63.0 [facility] [address] [place] [address] [phone] Aug, Dental examination Z01.20 and Xerostomia K11.7 [facility] [id number] [place] [address] 68098- 3816 Aug, Neuropathy G62.9 [facility] [address] 54725- 2872 Aug, [facility] [id number] [place] [address] 48817- 7432 Aug, Other dorsalgia M54.89 [place] [address] [place] [id number] [place] [address] 33979- 8991 Aug, Type 2 diabetes mellitus with diabetic autonomic (poly) neuropathy E11.43 ; Diabetic polyneuropathy associated with type 2 diabetes mellitus E11.42 ; Bronchitis J40 ; Gastroparesis K31.84 and Reactive depression F32.9 [facility] [id number] [place] [address] 03360- 2676 Aug, PTSD (post-traumatic stress disorder) F43.10 [facility] [id number] [place] [address] 71665- 9887 Aug, Other dorsalgia M54.89 and Anorexia R63.0 [facility] [id number] [place] [address] 56733- 5113 Jul, [facility] [id number] [place] [address] 48247- 2496 Jul, Other dorsalgia M54.89 [facility] [id number] [place] [address] 32975- 1872 Jul, [facility] [id number] [place] [address] 94547- 6788 Jul, [facility] [id number] [place] [address] 76404- 0111 Jul, PTSD (post-traumatic stress disorder) F43.10 [facility] [id number] [place] [address] 73384 2546 Jul, [facility] [id number] [place] [address] 05238 2546 Jul, [facility] [id number] [place] [address] 82325 2546 Jul, [facility] [id number] [place] [address] 08672 2546 Jul, Anorexia R63.0 [facility] [id number] [place] [address] 28213 2546 Jun, [facility] [id number] [place] [address] 02602 2546 Jun, Vaginal discharge N89.8 ; Visit for gynecologic examination Z01.419 and Pelvic pressure in female R10.2 [facility] [id number] [place] [address] 82935 2546 Jun, [facility] [id number] [place] [address] 15175 2546 20 Jun, 2017 Other dorsalgia M54.89 [facility] [id number] [place] [address] 11388 2546 16 Jun, 2017 [facility] [id number] [place] [address] 50692 2546 Jun, [facility] [id number] [place] [address] 28797 2546 Jun, [facility] [address] 48353 2546 May, Back pain M54.9 [facility] [id number] [place] [address] 72435 2546 May, Anorexia R63.0 [facility] [address] 17514- 6091 May, Other dorsalgia M54.89 [facility] [address] 67762- 0962 May, [facility] [address] [place] [address]- 3995 May, Bronchitis J40 [facility] [address] 455945- 4101 May, Type 2 diabetes mellitus with diabetic autonomic (poly) neuropathy E11.43 ; 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 ; Back pain M54.9 and Neuropathy G62.9 [facility] [address] 29873- 6632 May, Left breast mass N63.20 [facility] [address] 70069- 0336 May, [facility] [address] 78785- 9558 Apr, Other dorsalgia M54.89 [facility] [address] 34592 2546 Apr, Anorexia R63.0 [facility] [address] 35400 2546 Apr, Anorexia R63.0 [facility] [address] 71450 2546 Apr, Mass of left breast N63.20 [facility] [id number] [place] [address] 66207- 7566 Apr, [facility] [address] 13905 2546 Apr, [facility] [address] 39238- 5342 14 Apr, 2017 Diarrhea of presumed infectious origin A09 [facility] [address] [place] [address]- 2771 Apr, Encounter for immunization Z23 [facility] [address] 21209- 2675 Apr, [facility] [id number] [place] [address] 86011- 4329 Mar, Other dorsalgia M54.89 [facility] [address] 20947- 9126 Mar, [facility] [address] 48533- 4998 Mar, [facility] [address] 12162- 1467 Mar, Anorexia R63.0 [facility] [address] 52226- 1819 Mar, [facility] [address] 60387- 2345 Mar, Other dorsalgia M54.89 [facility] [id number] [place] [address] 99671- 5360 Mar, [facility] [id number] [place] [address] 71893- 8878 Mar, Encounter for immunization Z23 [facility] [id number] [place] [address] 28511- 4294 Feb, Anorexia R63.0 [facility] [id number] [place] [address] 65612- 9952 Feb, Diabetes E11.9 [facility] [address] 74891- 2329 Feb, Back pain M54.9 and Diabetes E11.9 [facility] [id number] [place] [address] 54411- 4042 Feb, Diabetes E11.9 [facility] [address] 07189- 6176 Feb, Neuropathy G62.9 [facility] [address] 56904- 7456 Feb, Encounter for immunization Z23 ; Epigastric pain R10.13 ; Weight loss, abnormal R63.4 and Neuropathy G62.9 [facility] [address] [id number] Feb, [facility] [address] 99559- 9356 Feb, [facility] [address] 15633- 9259 Feb, Intractable vomiting with nausea, unspecified vomiting type R11.2 [facility] [address] 79683 -0026 Feb, Chronic nausea R11.0 [facility] [address] 95572- 1599 Feb, Other dorsalgia M54.89 [facility] [address] 36007- 1899 Jan, [facility] [address] 23085- 0894 Jan, [facility] [address] 15041- 5100 Jan, [facility] [address] 33758- 1637 Jan, [facility] [address] 85049- 9493 Jan, Asthma exacerbation J45.901 ; Bronchitis J40 and Neuropathy G62.9 [facility] [address] 67816- 2889 Jan, Anorexia R63.0 [facility] [address] 40137- 3001 Jan, Other dorsalgia M54.89 [facility] [id number] [place] [address] 54325- 8826 Dec, [facility] [id number] [place] [address] 91405 2546 Dec, [facility] [id number] [place] [address] 12988- 8296 Dec, Anorexia R63.0 [facility] [id number] [place] [address] 99540- 3716 Dec, Primary insomnia F51.01 [facility] [id number] [place] [address] 10516- 1456 Dec, Other dorsalgia M54.89 [facility] [id number] [place] [address] 26060- 2656 Dec, [facility] [id number] [place] [address] 21694- 4742 Nov, [facility] [id number] [place] [address] 68446- 8972 Nov, [facility] [id number] [place] [address] 86162- 8328 Nov, [facility] [id number] [place] [address] 91708- 4814 Nov, History of colon polyps Z86.010 [facility] [id number] [place] [address] 46117- 8936 Nov, Weight loss R63.4 ; Nausea and vomiting, intractability of vomiting not specified, unspecified vomiting type R11.2 and Abnormal LFTs R79.89 [facility] [id number] [place] [address] 65670- 7286 Nov, [facility] [id number] [place] [address] 86500- 3582 Nov, Neuropathy G62.9 and Pain in right knee M25.561 [facility] [address] [address]- 4928 12 Nov, 2016 Back pain M54.9 [facility] [address] [place] [address] 94858- 2096 10 Nov, 2016 [facility] [id number] [place] [address] 70340- 9836 08 Nov, 2016 Bronchitis J40 [facility] [id number] [place] [address] 72444- 6736 03 Nov, 2016 Weight loss R63.4 [facility] [address] [id number] [place] [address] 49147- 3857 16 Oct, 2016 Back pain M54.9 [facility] [id number] [place] [address] 10472- 2920 16 Oct, 2016 [facility] [id number] [place] [address] 48431- 7353 14 Oct, 2016 Back pain M54.9 [facility] [id number] [place] [address] 67050- 9065 13 Oct, 2016 Type 2 diabetes mellitus without complications E11.9 and Bronchitis J40 [facility] [address] [place] [address] 41770- 8187 05 Oct, 2016 [facility] [id number] [place] [address] 58761- 5418 Oct, [facility] [address] [place] [address] 89278- 2931 September, Gastroparesis K31.84 ; Type 2 diabetes mellitus with diabetic autonomic (poly)neuropathy E11.43 and Neuropathy G62.9 [facility] [address] [place] [address] 05098- 6088 September, Other dorsalgia M54.89 [facility] [id number] [place] [address] 56773- 6102 September, [facility] [id number] [place] [address] 84902- 6290 September, [facility] [id number] [place] [address] 94951- 7351 Aug, Gastroparesis K31.84 and Radicular leg pain M54.10 [facility] [id number] [place] [address] 14835- 2788 Aug, Anorexia R63.0 [facility] [id number] [place] [address] 43828- 2110 Aug, Bronchitis J40 [place] [address] 71521- 6813 Aug, Back pain M54.9 [place] [address] [id number] [place] [address] 76319- 4736 Aug, Routine gynecological examination Z01.419 ; Routine screening for STI (sexually transmitted infection) Z11.3 and Yeast infection of the vagina B37.3 [facility] [id number] [place] [address] 40599- 8973 Jul, Other dorsalgia M54.89 [facility] [address] [place] [address] 03070- 0126 Jul, Diabetes E11.9 and Gastroparesis K31.84 [facility] [id number] [place] [address] 20523- 4502 Jun, [facility] [address] [place] [address] 68078- 1084 Jun, Back pain M54.9 [facility] [id number] [place] [address] 33244- 2957 14 Jun, 2016 Neuropathy G62.9 [facility] [address] [place] [address] [id number] 02 Jun, 2016 Encounter for dental examination Z01.20 [facility] [id number] [place] [address] 25970 2546 Jun, Gastroparesis 536.3 and Anorexia R63.0 [facility] [address] 83864 2546 May, Other dorsalgia M54.89 [facility] [address] 97253 2546 May, Periumbilical abdominal pain R10.33 ; Weight loss R63.4 and Gastroparesis K31.84 [facility] [address] 94159 2546 May, Back pain M54.9 [facility] [address] 86017 2546 Apr, Anorexia R63.0 [facility] [address] 35462 2546 Apr, Anorexia R63.0 [facility] [address] 63704 2546 Apr, Back pain M54.9 [facility] [address] 80110 2546 Apr, Back pain M54.9 [facility] [address] 17817 2546 Apr, [facility] [address] 74975 2546 Apr, Bronchitis J40 and Neuropathy G62.9 [facility] [id number] [place] [address] 68581 2546 Apr, Neuropathy G62.9 [facility] [address] [place] [address] 70600 2546 Apr, [facility] [id number] [place] [address] 89059 2546 Apr, Back pain M54.9 [facility] [address] [place] [address] 98124- 3163 Mar, Type 2 diabetes mellitus with diabetic autonomic (poly) neuropathy E11.43 [facility] [address] [place] [address] 74875- 3266 Mar, Type 2 diabetes mellitus without complications E11.9 [facility] [address] [place] [address] 01589- 9773 Mar, Neuropathy G62.9 [facility] [address] [place] [address] 38207- 5662 Mar, [facility] [address] 04959- 9894 Mar, Breast cancer screening Z12.39 [facility] [address] 34039- 6134 Mar, Other dorsalgia M54.89 [facility] [address] 79244- 5576 Feb, [facility] [id number] [place] [address] 41274- 6634 Jan, Neuropathy G62.9 ; Type 2 diabetes mellitus with diabetic autonomic (poly)neuropathy E11.43 ; Uncomplicated asthma, unspecified asthma severity J45.909 and Encounter for immunization Z23 [facility] [id number] [place] [address] 84377- 0115 Jan, [facility] [id number] [place] [address] 31753- 2543 Jan, [facility] [id number] [place] [address] 04809- 8434 Dec, [facility] [id number] [place] [address] 99089- 6844 Dec, [facility] [id number] [place] [address] 61545- 3311 Nov, [facility] [id number] [place] [address] 81936- 3111 Nov, Back pain M54.9 [facility] [address] [place] [address] 10913- 0180 Nov, Neuropathy G62.9 ; Mixed hyperlipidemia E78.2 ; Type 2 diabetes mellitus with diabetic autonomic (poly)neuropathy E11.43 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 [facility] [address] [place] [address] 50590- 2193 Oct, [facility] [address] [place] [address] 67450- 1690 Oct, Other dorsalgia M54.89 [facility] [address] [place] [address] 40801- 4237 September, Primary insomnia F51.01 [facility] [address] 42668- 1860 September, [facility] [id number] [place] [address] 00167- 9947 Aug, Other dorsalgia M54.89 [facility] [id number] [place] [address] 99670- 0118 Jul, [facility] [address] [place] [address] 93385- 3913 Jul, Other dorsalgia M54.89 [facility] [address] [place] [address] 80720- 6722 Jul, Diabetes E11.9 ; Back pain M54.9 ; Neuropathy G62.9 and Gastroparesis K31.84 [facility] [id number] [place] [address] 84933- 1847 Jun, [facility] [id number] [place] [address] 00178- 2040 Jun, Other dorsalgia M54.89 [facility] [address] [place] [address]- 5636 May, [facility] [id number] [place] [address] 38041- 9054 May, Radicular leg pain M54.10 and Other dorsalgia M54.89 [facility] [id number] [place] [address] 99115- 3091 Apr, [facility] [id number] [place] [address] 78454- 8290 Mar, [facility] [id number] [place] [address] 50472- 9546 Mar, [facility] [id number] [place] [address] 95408- 1236 Mar, Radicular leg pain M54.10 [facility] [id number] [place] [address] 38904- 1694 Feb, [facility] [id number] [place] [address] 46594- 2064 Feb, [facility] [id number] [place] [address] 13855- 8739 Feb, [facility] [id number] [place] [address] 51032- 2490 Jan, [facility] [id number] [place] [address] 96881- 6634 Jan, IBS (irritable bowel syndrome) 564.1 [facility] [id number] [place] [address] 10776- 3652 Jan, [facility] [id number] [place] [address] 63015- 6422 Jan, [facility] [address] [place] [address] 03278- 4399 Jan, Diabetes mellitus without mention of complication, type II or unspecified type, not stated as uncontrolled 250.00 ; Gastroparesis 536.3 and Hypoacusis 389.9 [facility] [address] [address]- 1012 Jan, [facility] [address] [place] [address] 429192- 8827 Jan, [facility] [address] [place] [address] 11032- 1296 Dec, [facility] [id number] [place] [address] [phone]- [phone] Dec, [facility] [id number] [place] [address] [id number] [phone] Dec, [facility] [id number] [place] [address] [phone]- [phone] Dec, Back pain 724.5 and Gastroparesis 536.3 [facility] [id number] [place] [address] [phone]- [phone] Nov, [facility] [id number] [place] [address] [id number] Nov, Dental examination V72.2 [facility] [id number] [place] [address] [phone]- [phone] Nov, [facility] [id number] [place] [address] [phone]- [phone] Nov, [facility] [id number] [place] [address] [phone]- [phone] Nov, Depressive disorder, not elsewhere classified 311 and No condition on [place] V71.09 [facility] [id number] [place] [address] [phone]- [phone] Nov, Diabetes 250.00 and Symptomatic menopausal or female climacteric states 627.2 [facility] [id number] [place] [address] 65584- [phone] Oct, [facility] [id number] [place] [address] [id number] Oct, Lumbar strain 847.2 [facility] [id number] [address] Oct, Gastroparesis 536.3 and Unspecified myalgia and myositis 729.1 [facility] [address] [facility] [id number] [address] Aug, [facility] [address] [facility] [id number], [place] [address] Aug, [facility] [address] [facility] [id number], [place] [address] Jul, [facility] [address] [facility] [id number] [address] Jul, [facility] [id number] [address] Jul, [facility] [address] [facility] [id number] [address] Jul, [facility] [address] [id number] [address] Jul, [facility] [address] [id number] [address] Jun, [facility] [address] [id number] [address] Jun, [facility] [address] [facility] [id number][place] [address] Jun, [facility] [address] [facility] [id number] [address] May, [facility] [address] [facility] [id number], [place] [address] May, [facility] [address] [id number], [place] [address] Mar, [facility] [address] [facility] [id number] [place] [address] Mar, [facility] [address] [id number] [place] [address] Mar, [facility] [place] [facility] [address] [id number] [place] [address] Mar, [facility] [address] [id number] [place] [address] Mar, [facility] [place] [facility] [address] [id number] [place] [address] Mar, [facility] [place] [facility] [address] [id number] [place] [address] Feb, [facility] [place] [facility] [address] [id number] [place] [address] Feb, [facility] [address] [id number] [place] [address] Nov, [facility] [address] [id number] [place] [address] Nov, [facility] [place] [facility] [address] [id number] [place] [address] Nov, [facility] [address] [id number] [place] [address] Oct, [facility] [place] [facility] [address] [id number] [place] [address] September, [facility] [place] [facility] [address] [id number] [place] [address] Aug, [facility] [place] [facility] [address] [id number] [place] [address] 15 Aug, 2012 [facility] [place] [facility] [address] [id number] [place] [address] Aug, [facility] [place] [facility] [address] [id number] [place] [address]- [address] Aug, [facility] [place] [facility] [address] [id number] [place] [address]- [address] Aug, [facility] [place] [facility] [address] [id number] [place] [address] Aug, [facility] [place] [facility] [address] [id number] [place] [address] Aug, [facility] [place] [facility] [address] [id number] [place] [address] Aug, [facility] [address] [id number] [place] [address] Jul, [facility] [place] [facility] [address] [id number] [place] [address] Jul, [facility] [address] [facility] [id number] [place] [address]- [address] Jun, [facility] [address] [id number], [place] [address] Jun, [facility] [place] [facility] [address] [id number] [place] [address] Jun, [facility] [address] [facility] [id number], [place] [address] Jun, [facility] [place] [facility] [address] [id number], [place] [address]- [address] Jun, [facility] [place] [facility] [address] [id number], [place] [address] Jun, [facility] [place] [facility] [address] [id number] [place] [address]- [address] Jun, [facility] [place] [facility] [address] [id number], [place] [address] May, [facility] [place] [facility] [address] [id number] [place] [address] May, [facility] [place] [facility] [address] [facility] [id number] [place] [address] May, [facility] [address] [facility] [id number], [place] [address] May, [facility] [address] [facility] [id number], [place] [address] Mar, [facility] [address] [facility] [id number][place] [address] Mar, [facility] [address] [facility] [id number][place] [id number] Jan, IMMUNIZATIONS No Known Immunizations SOCIAL HISTORY Never Assessed REASON FOR VISIT Serena RODRIGUEZ PLAN OF CARE VITAL SIGNS MEDICATIONS Unknown Medications RESULTS Name Result Date Reference Range [employer] 2017-06-24 PROCEDURES Procedure Date Ordered Result Body Site No Charge Jun 24, 2017 INSTRUCTIONS MEDICATIONS ADMINISTERED No Known Medications [...] High blood sugar 2016 Hospitalization History DKA, vomitting-[facility] 03/05/17 Hospitalization History hospital stay at [facility] for stomach issues 2016
--- OUTSIDE RECORDS SUMMARY | 2018-01-27 20:25 | XMS REPORT ---
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 Name Role Phone HORACE HIGGINS Unavailable PROBLEMS Type Condition ICD9-CM Code UOM52-XY Code Onset Dates Condition Status SNOMED Code Problem Uncomplicated asthma, unspecified asthma severity J45.909 Active 884270820 Problem Weight loss R63.4 Active 583543318 Problem Anorexia R63.0 Active 17762457 Problem PTSD (post-traumatic stress disorder) F43.10 Active 40423202 Problem Diabetic polyneuropathy associated with type 2 diabetes mellitus E11.42 Active 30580923 Problem Primary insomnia F51.01 Active 5705194 Problem History of colon polyps Z86.010 Active 460715537 Problem Reactive depression F32.9 Active 62013665 Problem Asthma exacerbation J45.901 Active 647398352 Problem Depressive disorder, not elsewhere classified 311 Active 13746274 Problem Back pain M54.9 Active 900451449 Problem Gastroparesis K31.84 Active 119025974 Problem Mixed hyperlipidemia E78.2 Active 516804802 Problem Neuropathy G62.9 Active 336946840 Problem Type 2 diabetes mellitus with diabetic autonomic (poly)neuropathy E11.43 Active 04668757 Problem Diabetes E11.9 Active 54486524 Problem skilled nursing current use of insulin Z79.4 Active [id number] ALLERGIES No Information ENCOUNTERS Encounter Location Date Diagnosis [facility] [address] [facility] [id number] [address] September, [facility] [address] [address] September, [facility] [id number] [id number] Aug, [facility] [id number] [address] Aug, Other dorsalgia M54.89 [facility] [id number] [place] [address] 08914 2546 16 Aug, 2017 Type 2 diabetes mellitus with diabetic autonomic (poly) neuropathy E11.43 ; Diabetic polyneuropathy associated with type 2 diabetes mellitus E11.42 ; Bronchitis J40 ; Gastroparesis K31.84 and Reactive depression F32.9 [facility] [address] [address] 2546 Aug, PTSD (post-traumatic stress disorder) F43.10 [facility] [id number] [place] [address] 42526 2546 Aug, Other dorsalgia M54.89 and Anorexia R63.0 [facility] [id number] [place] [address] 50689 2546 Jul, [facility] [address] 70043 2546 Jul, Other dorsalgia M54.89 [facility] [id number] [place] [address] 41774 2546 Jul, [facility] [id number] [place] [address] 90072 2546 Jul, [facility] [id number] [place] [address] 27088 2546 Jul, PTSD (post-traumatic stress disorder) F43.10 [facility] [id number] [place] [address] 68143 2546 Jul, [facility] [id number] [place] [address] 56835 2546 Jul, [facility] [id number] [place] [address] 33368 2546 Jul, [facility] [id number] [place] [address] 39703 2546 Jul, Anorexia R63.0 [facility] [id number] [place] [address] 38110- 5547 Jun, [facility] [address] [address]66- 3216 Jun, Vaginal discharge N89.8 ; Visit for gynecologic examination Z01.419 and Pelvic pressure in female R10.2 [facility] [id number] [place] [address] 16929- 0316 Jun, [facility] [id number] [place] [address] 63899- 0882 Jun, Other dorsalgia M54.89 [facility] [address] 53141- 4216 Jun, [facility] [id number] [place] [address] 45737- 8429 Jun, [facility] [address] 56517- 1870 Jun, [facility] [id number] [place] [address] 10617- 4463 May, Back pain M54.9 [facility] [id number] [place] [address] 94405- 2566 May, Anorexia R63.0 [facility] [id number] [place] [address] 55325- 4116 May, Other dorsalgia M54.89 [facility] [id number] [place] [address] 81674- 6015 May, [facility] [id number] [place] [address] 62148- 6515 May, Bronchitis J40 [facility] [id number] [place] [address] 06678- 8103 May, Type 2 diabetes mellitus with diabetic autonomic (poly) neuropathy E11.43 ; 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 ; Back pain M54.9 and Neuropathy G62.9 [facility] [id number] [place] [address] 21827 2542 May, Left breast mass N63.20 [facility] [id number] [place] [address] 03411 2546 May, [facility] [id number] [place] [address] 51124 2546 Apr, Other dorsalgia M54.89 [facility] [id number] [place] [address] 37953 2546 Apr, Anorexia R63.0 [facility] [address] 09660- 4436 Apr, Anorexia R63.0 [facility] [address] 18158 2546 Apr, Mass of left breast N63.20 [facility] [id number] [place] [address] 37504 2546 Apr, [facility] [id number] [place] [address] 39056 2546 Apr, [facility] [id number] [place] [address] 47906- 5321 Apr, Diarrhea of presumed infectious origin A09 [facility] [id number] [place] [address] 49260 2548 Apr, Encounter for immunization Z23 [facility] [id number] [place] [address] 97605 2540 Apr, [facility] [id number] [place] [address] 50055 2542 Mar, Other dorsalgia M54.89 [facility] [id number] [place] [address] 94120 2546 Mar, [facility] [id number] [place] [address] 63113117- 4988 Mar, [facility] [id number] [place] [address] 93970- 4750 Mar, Anorexia R63.0 [facility] [address] 41269- 0178 Mar, [facility] [id number] [place] [address] 06810- 5198 Mar, Other dorsalgia M54.89 [facility] [address] 28741- 7047 Mar, [facility] [address] 24366- 2875 Mar, Encounter for immunization Z23 [facility] [address] 28541- 3302 Feb, Anorexia R63.0 [facility] [address] 54098- 9090 Feb, Diabetes E11.9 [facility] [address] 65448- 3236 Feb, Back pain M54.9 and Diabetes E11.9 [facility] [id number] [place] [address] 14417- 3429 Feb, Diabetes E11.9 [facility] [id number] [place] [address] 68036- 4710 Feb, Neuropathy G62.9 [facility] [id number] [place] [address] 88193- 9033 Feb, Encounter for immunization Z23 ; Epigastric pain R10.13 ; Weight loss, abnormal R63.4 and Neuropathy G62.9 [facility] [id number] [place] [address] [id number] Feb, [facility] [id number] [place] [address] 82481- 7372 Feb, [facility] [id number] [place] [address] 65970- 3327 Feb, Intractable vomiting with nausea, unspecified vomiting type R11.2 [facility] [id number] [place] [address] 93216 -7036 Feb, Chronic nausea R11.0 [facility] [id number] [place] [address] 82238- 9139 Feb, Other dorsalgia M54.89 [facility] [id number] [place] [address] 01427- 4920 Jan, [facility] [address] 79842- 9403 Jan, [facility] [id number] [place] [address] 55831- 5768 Jan, [facility] [address] 28489- 5645 Jan, [facility] [id number] [place] [address] 25524- 3491 Jan, Asthma exacerbation J45.901 ; Bronchitis J40 and Neuropathy G62.9 [facility] [id number] [place] [address] 59041- 0284 Jan, Anorexia R63.0 [facility] [id number] [place] [address] 58817- 2975 Jan, Other dorsalgia M54.89 [facility] [id number] [place] [address] 01474- 3182 Dec, [facility] [id number] [place] [address] 42735- 6916 Dec, [facility] [id number] [place] [address] 96607- 2863 Dec, Anorexia R63.0 [facility] [id number] [place] [address] 56156- 5238 Dec, Primary insomnia F51.01 [facility] [id number] [place] [address] 72027- 0336 Dec, Other dorsalgia M54.89 [facility] [id number] [place] [address] 41756- 3316 Dec, [facility] [id number] [place] [address] 23221- 9631 Nov, [facility] [id number] [place] [address] 08430- 6238 Nov, [facility] [id number] [place] [address] 20326- 3132 Nov, [facility] [address] 27067- 5328 Nov, History of colon polyps Z86.010 [facility] [id number] [place] [address] 76950- 5394 Nov, Weight loss R63.4 ; Nausea and vomiting, intractability of vomiting not specified, unspecified vomiting type R11.2 and Abnormal LFTs R79.89 [facility] [id number] [place] [address] 51146- 3062 Nov, [facility] [id number] [place] [address] 42766- 1138 Nov, Neuropathy G62.9 and Pain in right knee M25.561 [facility] [id number] [place] [address] 60315- 1039 Nov, Back pain M54.9 [facility] [id number] [place] [address] 96486- 2254 Nov, [facility] [id number] [place] [address] 40002- 0292 Nov, Bronchitis J40 [facility] [id number] [place] [address] 57635- 3086 Nov, Weight loss R63.4 [facility] [id number] [place] [address] 78875- 7770 Oct, Back pain M54.9 [facility] [id number] [place] [address] 47909- 6870 16 Oct, 2016 [facility] [id number] [place] [address] 45452- 4344 14 Oct, 2016 Back pain M54.9 [facility] [address] 89928- 4808 13 Oct, 2016 Type 2 diabetes mellitus without complications E11.9 and Bronchitis J40 [facility] [address] 02570- 1326 Oct, [facility] [id number] [place] [address] 12813- 9879 Oct, [facility] [address] 62186- 4205 September, Gastroparesis K31.84 ; Type 2 diabetes mellitus with diabetic autonomic (poly)neuropathy E11.43 and Neuropathy G62.9 [facility] [id number] [place] [address] 92652- 5463 September, Other dorsalgia M54.89 [facility] [id number] [place] [address] 14027- 2671 September, [facility] [id number] [place] [address] 91582- 3937 September, [facility] [id number] [place] [address] 09976- 9410 Aug, Gastroparesis K31.84 and Radicular leg pain M54.10 [facility] [id number] [place] [address] 29793- 3170 Aug, Anorexia R63.0 [facility] [id number] [place] [address] 10874- 6738 Aug, Bronchitis J40 [facility] [address] [place] [address] 70626- 4010 Aug, Back pain M54.9 [facility] [id number] [place] [address] 86753- 9813 Aug, Routine gynecological examination Z01.419 ; Routine screening for STI (sexually transmitted infection) Z11.3 and Yeast infection of the vagina B37.3 [facility] [id number] [place] [address] 60543- 9968 Jul, Other dorsalgia M54.89 [facility] [id number] [place] [address] 06481- 2797 Jul, Diabetes E11.9 and Gastroparesis K31.84 [address] 45077- 6854 Jun, [facility] [id number] [place] [address] 48479- 2891 Jun, Back pain M54.9 [facility] [id number] [place] [address] 12264- 2876 14 Jun, 2016 Neuropathy G62.9 [facility] [id number] [place] [address] [id number] 02 Jun, 2016 Encounter for dental examination Z01.20 [facility] [id number] [place] [address] 32740- 8429 Jun, Gastroparesis 536.3 and Anorexia R63.0 [facility] [id number] [place] [address] 48054- 9892 May, Other dorsalgia M54.89 [facility] [address] 15298- 3781 May, Periumbilical abdominal pain R10.33 ; Weight loss R63.4 and Gastroparesis K31.84 [facility] [id number] [place] [address] 47233- 9498 May, Back pain M54.9 [facility] [id number] [place] [address] 71400 2546 Apr, Anorexia R63.0 [facility] [id number] [place] [address] 90799 2546 Apr, Anorexia R63.0 [facility] [id number] [place] [address] 46184 2546 Apr, Back pain M54.9 [facility] [id number] [place] [address] 35897 2546 Apr, Back pain M54.9 [facility] [id number] [place] [address] 73104 2546 Apr, [facility] [id number] [place] [address] 38968 2546 Apr, Bronchitis J40 and Neuropathy G62.9 [facility] [id number] [place] [address] 23137 2546 Apr, Neuropathy G62.9 [facility] [id number] [place] [address] 44178 2546 Apr, [facility] [id number] [place] [address] 82595 254 Apr, Back pain M54.9 [facility] [id number] [place] [address] 46056 2546 Mar, Type 2 diabetes mellitus with diabetic autonomic (poly) neuropathy E11.43 [facility] [id number] [place] [address] 84025 2546 Mar, Type 2 diabetes mellitus without complications E11.9 [facility] [id number] [place] [address] 45116 2546 Mar, Neuropathy G62.9 [facility] [id number] [place] [address] [id number]- 4260 Mar, [facility] [id number] [place] [address] 73045- 6036 Mar, Breast cancer screening Z12.39 [facility] [id number] [place] [address] 26044- 1000 Mar, Other dorsalgia M54.89 [facility] [id number] [place] [address] 22281- 3621 Feb, [facility] [id number] [place] [address] 41999- 5977 30 Jan, 2016 Neuropathy G62.9 ; Type 2 diabetes mellitus with diabetic autonomic (poly)neuropathy E11.43 ; Uncomplicated asthma, unspecified asthma severity J45.909 and Encounter for immunization Z23 [facility] [id number] [place] [address] 50470- 0777 09 Jan, 2016 [facility] [address] 55837- 0698 Jan, [facility] [id number] [place] [address] 11163- 9369 Dec, [facility] [id number] [place] [address] 10184- 5121 Dec, [facility] [id number] [place] [address] 88561- 1560 Nov, [facility] [id number] [place] [address] 95805- 4071 Nov, Back pain M54.9 [facility] [id number] [place] [address] 21645- 8264 Nov, Neuropathy G62.9 ; Mixed hyperlipidemia E78.2 ; Type 2 diabetes mellitus with diabetic autonomic (poly)neuropathy E11.43 and skilled nursing current use of insulin Z79.4 [facility] [id number] [place] [address] 90224- 4224 Oct, [facility] [address] [place] [address]- 0459 Oct, Other dorsalgia M54.89 [facility] [address] 24440- 2953 September, Primary insomnia F51.01 [facility] [id number] [place] [address] 51947- 3509 September, [facility] [address] 99081- 2427 Aug, Other dorsalgia M54.89 [facility] [address] 76722- 4963 Jul, [facility] [address] 86090- 0884 Jul, Other dorsalgia M54.89 [facility] [address] 82185- 1259 Jul, Diabetes E11.9 ; Back pain M54.9 ; Neuropathy G62.9 and Gastroparesis K31.84 [facility] [id number] [place] [address] 94254- 3196 Jun, [facility] [id number] [place] [address] 01443- 1897 Jun, Other dorsalgia M54.89 [facility] [id number] [place] [address] 61796- 5213 May, [facility] [id number] [place] [address] 96962- 1539 May, Radicular leg pain M54.10 and Other dorsalgia M54.89 [facility] [address] 83649- 8130 Apr, [facility] [id number] [place] [address] 89253- 4380 Mar, [facility] [address] 50512- 7519 Mar, [facility] [address] [address]- 4842 Mar, Radicular leg pain M54.10 [facility] [address], [place] [address]- 7213 Feb, [facility] [id number] [place] [address] 48083- 6315 Feb, [facility] [id number] [place] [address] 67933- 9399 Feb, [facility] [id number] [place] [address] 30729- 9247 Jan, [facility] [id number] [place] [address] 18876- 7951 Jan, IBS (irritable bowel syndrome) 564.1 [facility] [id number] [place] [address] 32869- 5342 Jan, [facility] [address] [address]- 2241 Jan, [facility] [id number] [place] [address] 39006- 1186 Jan, Diabetes mellitus without mention of complication, type II or unspecified type, not stated as uncontrolled 250.00 ; Gastroparesis 536.3 and Hypoacusis 389.9 [facility] [address] [address]- 6330 Jan, [facility] [address] [address]- 3031 Jan, [facility] [id number] [place] [address] 96714- 4103 Dec, [facility] [address] [address]- 7195 Dec, [facility] [address] [address]- 1120 Dec, [facility] [id number] [place] [address] 73854- 7933 Dec, Back pain 724.5 and Gastroparesis 536.3 [facility] [address] [address]- 6182 Nov, [facility] [id number] [place] [address] [id number] Nov, Dental examination V72.2 [facility] [id number] [place] [address] 18091- 9634 Nov, [facility] [id number] [place] [address] 72848- 2890 Nov, [facility] [id number] [place] [address] 11878- 4226 Nov, Depressive disorder, not elsewhere classified 311 and No condition on [place] II V71.09 [facility] [id number] [place] [address] 75564- 6857 Nov, Diabetes 250.00 and Symptomatic menopausal or female climacteric states 627.2 [facility] [address] [place] [address] 79941- 1507 Oct, [facility] [address] [place] [address] 53479- 9367 Oct, Lumbar strain 847.2 [facility] [id number] [place] [address] 58101- 8374 Oct, Gastroparesis 536.3 and Unspecified myalgia and myositis 729.1 [facility] [id number] [place] [id number]- 9520 Aug, [facility] [id number] [address] Aug, [facility] [id number] [place] [address]30- 2418 Jul, [facility] [place] [facility] [address] [id number] [place] [address] Jul, [facility] [place] [facility] [address] [id number] [place] [address] Jul, [facility] [place] [facility] [address] [id number] [place] [address] Jul, [facility] [place] [facility] [address] [id number] [place] [address] Jul, [facility] [place] [facility] [address] [id number] [place] [address] 4[address] Jun, [facility] [place] [facility] [address] [id number] [place] [address] Jun, [facility] [place] [facility] [address] [id number] [place] [address]- 2828 Jun, [facility] [place] [facility] [address] [id number] [place] [address]392 May, [facility] [place] [facility] [address] [id number] [place] [address] May, [facility] [place] [facility] [address] [facility] [id number] [place] [address]94 Mar, [facility] [place] [facility] [address] [id number] [place] [address] 59[address] Mar, [facility] [place] [facility] [address] [id number] [place] [address]112 Mar, [facility] [place] [facility] [address] [id number] [place] [address]- [address] Mar, [facility] [place] [facility] [address] [id number] [place] [address]- 6334 Mar, [facility] [place] [facility] [address] [facility] [id number] [place] [address] Mar, [facility] [place] [facility] [address] [id number] [place] [address]- [address] Feb, [facility] [address] [id number] [place], [place] [address] Feb, [facility] [place] [facility] [address] [id number] [place] [address] Nov, [facility] [place] [facility] [address] [id number] [place] [address] Nov, [facility] [address] [id number] [place] [address] Nov, [facility] [place] [facility] [address] [id number] [place] [address] Oct, [facility] [address] [id number] [place] [address] September, [facility] [address] [id number] [place] [address] Aug, [facility] [address] [id number] [place] [address] Aug, [facility] [place] [facility] [address] [id number] [place] [address] Aug, [facility] [address] [id number] [place] [address] Aug, [facility] [place] [facility] [address] [id number] [place] [address] Aug, [facility] [place] [facility] [address] [id number] [place] [address] Aug, [facility] [place] [facility] [address] [id number] [place] [address] Aug, [facility] [place] [facility] [address] [id number] [place] [address] 02 Aug, 2012 [facility] [place] [facility] [address] [id number] [place] [address] Jul, [facility] [address] [facility] [id number] [place] [address] Jul, [facility] [address] [facility] [id number] [address] 12 Jun, 2012 [facility] [address] [address] Jun, [facility] [address] [facility] [id number] [address] 09 Jun, 2012 [facility] [address] [facility] [id number] [place] [address] 08 Jun, 2012 [facility] [address] [facility] [id number], [place] [address] Jun, [facility] [id number] [address] Jun, [facility] [address] [address] Jun, [facility] [id number], [place] [address] May, [facility] [id number] [address] May, [facility] [id number] [address] May, [facility] [id number] [address] May, [facility] [id number], [place] [address] Mar, [facility] [id number] [address] Mar, [facility] [id number] [address] 24 Jan, 2012 IMMUNIZATIONS No Known Immunizations SOCIAL HISTORY Never Assessed REASON FOR VISIT no-show for DM ed PLAN OF CARE VITAL SIGNS MEDICATIONS Unknown [...] vomitting-[facility] 03/05/17 Hospitalization History hospital stay at [facility] for stomach issues 2016
--- OUTSIDE RECORDS SUMMARY | 2018-01-27 20:26 | XMS REPORT ---
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 Name Role Phone HORACE HIGGINS Unavailable PROBLEMS Type Condition ICD9-CM Code CVZ29-YL Code Onset Dates Condition Status SNOMED Code Problem History of colon polyps Z86.010 Active 359792848 Problem Asthma exacerbation J45.901 Active 349368907 Problem Primary insomnia F51.01 Active 2483065 Problem Tobacco dependency F17.200 Active 85291612 Problem Low TSH level R94.6 Active 508549574 Problem Annual physical exam Z00.00 Active 967951354 Problem Diabetic polyneuropathy associated with type 2 diabetes mellitus E11.42 Active 53909790 Problem Reactive depression F32.9 Active 96693004 Problem Migraine without aura and without status migrainosus, not intractable G43.009 Active 412642777 Problem PTSD (post-traumatic stress disorder) F43.10 Active 89088885 Problem Diabetes E11.9 Active 06981441 Problem Gastroparesis K31.84 Active 142614595 Problem Back pain M54.9 Active 822544661 Problem Neuropathy G62.9 Active 257955683 Problem Type 2 diabetes mellitus with diabetic autonomic (poly)neuropathy E11.43 Active 86298964 Problem Uncomplicated asthma, unspecified asthma severity J45.909 Active 121012830 Problem half-way current use of insulin Z79.4 Active 352792931 Problem Anorexia R63.0 Active 76066966 Problem Mixed hyperlipidemia E78.2 Active 267351982 Problem Weight loss R63.4 Active 411977582 ALLERGIES No Information ENCOUNTERS Encounter Location Date Diagnosis [facility] [id number] [address] Jan, [facility] [address] [address] Oct, [facility] [address] [id number]- [address]99 Oct, [facility] [address] [address] 326 Oct, PTSD (post-traumatic stress disorder) F43.10 and Tobacco dependency F17.200 [facility] [address] [address]- 5642 Oct, [place] [facility] [address] [place] [place] [address] 6228 Oct, Other dorsalgia M54.89 [place] [address] 5647 Oct, Anorexia R63.0 [facility] [address] [address] 233 September, PTSD (post-traumatic stress disorder) F43.10 [place] [facility] [address] 44[address] 5331 September, Low TSH level R94.6 [place] [address] 85287- 0393 September, Other dorsalgia M54.89 [facility] [address] [id number] 734 September, Annual physical exam Z00.00 and Migraine without aura and without status migrainosus, not intractable G43.009 [facility] [address] [address]57- 4647 September, Abnormal TSH R94.6 and Dysfunction of left eustachian tube H69.82 [facility] [address] [id number]- 4703 Aug, [facility] [address] [address]- 9219 Aug, Anorexia R63.0 [facility] [address] [id number] Aug, Dental examination Z01.20 and Xerostomia K11.7 [place] [id number] [place] [address] 30193- 4450 Aug, Neuropathy G62.9 [facility] [id number] [place] [address] 36686- 6458 Aug, [place] [address] 91934- 3463 Aug, Other dorsalgia M54.89 [place] [id number] [place] [address] 57237- 6310 Aug, Type 2 diabetes mellitus with diabetic autonomic (poly) neuropathy E11.43 ; Diabetic polyneuropathy associated with type 2 diabetes mellitus E11.42 ; Bronchitis J40 ; Gastroparesis K31.84 and Reactive depression F32.9 [place] [id number] [place] [address] 93423- 8882 Aug, PTSD (post-traumatic stress disorder) F43.10 [place] [id number] [place] [address] 35950- 8396 Aug, Other dorsalgia M54.89 and Anorexia R63.0 [place] [id number] [place] [address] 35736- 5077 Jul, [place] [id number] [place] [address] 70497- 7306 Jul, Other dorsalgia M54.89 [place] [id number] [place] [address] 74430- 2238 Jul, [place] [id number] [place] [address] 71006- 2986 Jul, [facility] [id number] [place] [address] 16498- 2541 Jul, PTSD (post-traumatic stress disorder) F43.10 [place] [id number] [place] [id number] Jul, [facility] [id number] [place] [address] 94561 2546 Jul, [facility] [id number] [place] [address] 27567 2546 Jul, [facility] [id number] [place] [address] 72620 2546 Jul, Anorexia R63.0 [facility] [id number] [place] [address] 41988 2546 Jun, [facility] [id number] [place] [address] 53886- 4846 Jun, Vaginal discharge N89.8 ; Visit for gynecologic examination Z01.419 and Pelvic pressure in female R10.2 [facility] [id number] [place] [address] 30653- 3626 Jun, [facility] [id number] [place] [address] 14409- 2575 Jun, Other dorsalgia M54.89 [facility] [id number] [place] [address] 78271- 3276 16 Jun, 2017 [facility] [id number] [place] [address] 81967- 1546 07 Jun, 2017 [facility] [id number] [place] [address] 95687 2546 Jun, [facility] [id number] [place] [address] 40212 2546 May, Back pain M54.9 [facility] [id number] [place] [address] 35362 2546 May, Anorexia R63.0 [facility] [id number] [place] [address] 54911 2546 May, Other dorsalgia M54.89 [facility] [id number] [place] [address] 66125- 1517 May, [facility] [address] 69448- 4003 May, Bronchitis J40 [facility] [id number] [place] [address] 09348- 4518 May, Type 2 diabetes mellitus with diabetic autonomic (poly) neuropathy E11.43 ; half-way current use of insulin Z79.4 ; Back pain M54.9 and Neuropathy G62.9 [place] [id number] [place] [address] 62708- 5615 May, Left breast mass N63.20 [place] [address] 62326- 0030 May, [place] [address] 66644- 9499 Apr, Other dorsalgia M54.89 [place] [address] 84828- 2513 Apr, Anorexia R63.0 [place] [address] 22473- 5119 Apr, Anorexia R63.0 [place] [id number] [place] [address] 18158- 2235 Apr, Mass of left breast N63.20 [place] [id number] [place] [address] 10544- 9824 Apr, [place] [id number] [place] [address] 70295- 6884 Apr, [place] [address] 81958- 5932 14 Apr, 2017 Diarrhea of presumed infectious origin A09 [place] [id number] [place] [address] 91607- 6788 11 Apr, 2017 Encounter for immunization Z23 [place] [id number] [place] [address] 73319- 8978 Apr, [facility] [id number] [place] [address] 23186- 4668 Mar, Other dorsalgia M54.89 [facility] [id number] [place] [address] 98654 2546 Mar, [facility] [address] 29062- 4742 Mar, [facility] [id number] [place] [address] 68478- 8624 Mar, Anorexia R63.0 [facility] [address] 96246- 8606 Mar, [facility] [id number] [place] [address] 08657- 9374 Mar, Other dorsalgia M54.89 [facility] [id number] [place] [address] 85315- 1954 Mar, [facility] [id number] [place] [address] 06471- 6833 Mar, Encounter for immunization Z23 [facility] [id number] [place] [address] 46425- 8487 Feb, Anorexia R63.0 [facility] [id number] [place] [address] 92359- 8885 Feb, Diabetes E11.9 [facility] [id number] [place] [address] 14945- 2612 Feb, Back pain M54.9 and Diabetes E11.9 [facility] [id number] [place] [address] 88185- 1586 Feb, Diabetes E11.9 [facility] [id number] [place] [address] 82813- 7624 Feb, Neuropathy G62.9 [facility] [id number] [place] [address] 68406- 5526 Feb, Encounter for immunization Z23 ; Epigastric pain R10.13 ; Weight loss, abnormal R63.4 and Neuropathy G62.9 [facility] [id number] [place] [address] [id number] Feb, [facility] [id number] [place] [address] 82625- 4081 Feb, [facility] [address] 32500- 6964 Feb, Intractable vomiting with nausea, unspecified vomiting type R11.2 [facility] [address] 74714 -7553 Feb, Chronic nausea R11.0 [facility] [address] 10068- 5289 Feb, Other dorsalgia M54.89 [facility] [address] 23757- 3332 Jan, [facility] [address] 58412- 4127 Jan, [facility] [id number] [place] [address] 98504- 5930 Jan, [facility] [id number] [place] [address] 34849- 3687 Jan, [facility] [address] 74361- 8858 Jan, Asthma exacerbation J45.901 ; Bronchitis J40 and Neuropathy G62.9 [facility] [address] 42697- 1379 Jan, Anorexia R63.0 [facility] [id number] [place] [address] 89931- 1141 Jan, Other dorsalgia M54.89 [facility] [id number] [place] [address] 27670- 9345 Dec, [facility] [id number] [place] [address] 88356- 3986 Dec, [facility] [id number] [place] [address] 07191- 9302 Dec, Anorexia R63.0 [facility] [address] 71375- 7963 Dec, Primary insomnia F51.01 [facility] [id number] [place] [address] 72119- 4647 Dec, Other dorsalgia M54.89 [facility] [address] 11579- 5410 Dec, [facility] [id number] [place] [address] 85715- 2158 Nov, [facility] [id number] [place] [address] 06838- 6066 Nov, [facility] [id number] [place] [address] 86062- 3944 Nov, [facility] [id number] [place] [address] 19728- 6852 Nov, History of colon polyps Z86.010 [facility] [id number] [place] [address] 46555- 9495 Nov, Weight loss R63.4 ; Nausea and vomiting, intractability of vomiting not specified, unspecified vomiting type R11.2 and Abnormal LFTs R79.89 [facility] [id number] [place] [address] 41170- 8066 Nov, [facility] [id number] [place] [address] 31882- 3978 Nov, Neuropathy G62.9 and Pain in right knee M25.561 [facility] [id number] [place] [address] 55145- 4057 Nov, Back pain M54.9 [facility] [id number] [place] [address] 53074- 9496 10 Nov, 2016 [facility] [id number] [place] [address] 30595- 6272 08 Nov, 2016 Bronchitis J40 [facility] [id number] [place] [address] 78067- 4432 Nov, Weight loss R63.4 [facility] [id number] [place] [address] 07981- 7382 Oct, Back pain M54.9 [facility] [id number] [place] [address] 92291- 3197 Oct, [facility] [id number] [place] [address] 85285- 9187 Oct, Back pain M54.9 [facility] [id number] [place] [address] 64268- 4271 Oct, Type 2 diabetes mellitus without complications E11.9 and Bronchitis J40 [facility] [id number] [place] [address] 96429- 7784 Oct, [facility] [id number] [place] [address] 70238- 5514 Oct, [facility] [id number] [place] [address] 62633- 2607 September, Gastroparesis K31.84 ; Type 2 diabetes mellitus with diabetic autonomic (poly)neuropathy E11.43 and Neuropathy G62.9 [facility] [id number] [place] [address] 36508- 5359 September, Other dorsalgia M54.89 [facility] [id number] [place] [address] 96238- 9227 September, [facility] [id number] [place] [address] 00956- 2560 September, [facility] [id number] [place] [address] 40785- 4549 Aug, Gastroparesis K31.84 and Radicular leg pain M54.10 [facility] [id number] [place] [address] 24331- 5320 Aug, Anorexia R63.0 [facility] [address] 97182- 8435 Aug, Bronchitis J40 [facility] [id number] [place] [address] 45306- 2994 Aug, Back pain M54.9 [place] [address] 12568- 6778 Aug, Routine gynecological examination Z01.419 ; Routine screening for STI (sexually transmitted infection) Z11.3 and Yeast infection of the vagina B37.3 [place] [id number] [place] [address] 55112- 8027 Jul, Other dorsalgia M54.89 [facility] [id number] [place] [address] 09204- 6360 Jul, Diabetes E11.9 and Gastroparesis K31.84 [facility] [id number] [place] [address] 66870- 0259 Jun, [facility] [id number] [place] [address] 56894- 3182 Jun, Back pain M54.9 [facility] [id number] [place] [address] 25475- 8852 Jun, Neuropathy G62.9 [facility] [address] [place] [address] [id number] Jun, Encounter for dental examination Z01.20 [facility] [id number] [place] [address] 21865- 1989 Jun, Gastroparesis 536.3 and Anorexia R63.0 [facility] [id number] [place] [address] 05952 2546 May, Other dorsalgia M54.89 [facility] [address] 31079- 2546 May, Periumbilical abdominal pain R10.33 ; Weight loss R63.4 and Gastroparesis K31.84 [facility] [address] 24765 2546 May, Back pain M54.9 [facility] [address] 57994- 2546 Apr, Anorexia R63.0 [facility] [address] 59533 2546 Apr, Anorexia R63.0 [facility] [address] 79211 2546 Apr, Back pain M54.9 [facility] [address] 53722 2546 Apr, Back pain M54.9 [facility] [address] 58033 2546 Apr, [facility] [address] 41943 2546 Apr, Bronchitis J40 and Neuropathy G62.9 [facility] [address] 11879 2546 Apr, Neuropathy G62.9 [facility] [address] 93025 2546 Apr, [facility] [address] 15458 2546 Apr, Back pain M54.9 [facility] [address] 60371 2546 Mar, Type 2 diabetes mellitus with diabetic autonomic (poly) neuropathy E11.43 [facility] [id number] [place] [address] 01775- 3728 Mar, Type 2 diabetes mellitus without complications E11.9 [facility] [id number] [place] [address] 73174- 9666 Mar, Neuropathy G62.9 [facility] [id number] [place] [address] 82015 2546 Mar, [facility] [id number] [place] [address] 15682- 9256 Mar, Breast cancer screening Z12.39 [facility] [id number] [place] [address] 81186- 4170 Mar, Other dorsalgia M54.89 [facility] [id number] [place] [address] 25437- 3345 Feb, [facility] [id number] [place] [address] 29730- 2808 Jan, Neuropathy G62.9 ; Type 2 diabetes mellitus with diabetic autonomic (poly)neuropathy E11.43 ; Uncomplicated asthma, unspecified asthma severity J45.909 and Encounter for immunization Z23 [facility] [address] [place] [address] 78133- 5703 Jan, [facility] [id number] [place] [address] 12759- 4571 Jan, [facility] [id number] [place] [address] 22213 2549 Dec, [facility] [id number] [place] [address] 22284- 8210 Dec, [facility] [id number] [place] [address] 57820- 5043 Nov, [facility] [id number] [place] [address] 80950- 3996 Nov, Back pain M54.9 [facility] [id number] [place] [address] 10633- 6944 Nov, Neuropathy G62.9 ; Mixed hyperlipidemia E78.2 ; Type 2 diabetes mellitus with diabetic autonomic (poly)neuropathy E11.43 and terminal gauger current use of insulin Z79.4 [facility] [id number] [place] [address] 71256- 7370 Oct, [facility] [id number] [place] [address] 13372- 9102 Oct, Other dorsalgia M54.89 [facility] [id number] [place] [address] 36801- 4787 September, Primary insomnia F51.01 [facility] [id number] [place] [address] 98935- 8320 September, [facility] [id number] [place] [address] 61147- 7485 Aug, Other dorsalgia M54.89 [facility] [id number] [place] [address] 99119- 2097 Jul, [facility] [id number] [place] [address] 86767- 2490 Jul, Other dorsalgia M54.89 [facility] [id number] [place] [address] 93002- 4571 Jul, Diabetes E11.9 ; Back pain M54.9 ; Neuropathy G62.9 and Gastroparesis K31.84 [facility] [id number] [place] [address] 69855- 0387 Jun, [facility] [id number] [place] [address] 01801- 4890 Jun, Other dorsalgia M54.89 [facility] [id number] [place] [address] 20717- 9515 May, [facility] [address] [place] [address]- 4734 May, Radicular leg pain M54.10 and Other dorsalgia M54.89 [facility] [id number] [place] [address] 18424- 6712 Apr, [facility] [id number] [place] [address] 29023- 6793 Mar, [facility] [id number] [place] [address] 48171- 6959 Mar, [facility] [id number] [place] [address] 47044- 0238 Mar, Radicular leg pain M54.10 [facility] [id number] [place] [address] 23498- 3200 Feb, [facility] [id number] [place] [address] [phone]- [id number] Feb, [facility] [id number] [place] [address] [id number]- [phone] Feb, [facility] [id number] [place] [address] [phone]- [phone] Jan, [facility] [id number] [place] [address] [phone]- [phone] Jan, IBS (irritable bowel syndrome) 564.1 [facility] [id number] [place] [address] [phone]- [phone] Jan, [facility] [id number] [place] [address] [phone]- [phone] Jan, [facility] [id number] [place] [address] [id number]- [phone] Jan, Diabetes mellitus without mention of complication, type II or unspecified type, not stated as uncontrolled 250.00 ; Gastroparesis 536.3 and Hypoacusis 389.9 [facility] [id number] [place] [address] [id number]- [phone] Jan, [facility] [id number] [address] 9[address] Jan, [facility] [id number] [address] 5[address] Dec, [facility] [id number] [address]17 Dec, [facility] [id number] [place] [address] 59472- [phone] Dec, [facility] [id number] [place] [address] 10742- [phone] Dec, Back pain 724.5 and Gastroparesis 536.3 [facility] [id number] [place] [address] [phone]- 1397 Nov, [facility] [id number] [place] [address] [id number] Nov, Dental examination V72.2 [facility] [id number] [place] [address] 26974- [phone] Nov, [facility] [id number] [place] [address] 24799- 2792 Nov, [facility] [id number] [place] [address] 42572- 2442 Nov, Depressive disorder, not elsewhere classified 311 and No condition on [place] II V71.09 [facility] [id number] [address] Nov, Diabetes 250.00 and Symptomatic menopausal or female climacteric states 627.2 [facility] [id number] [place] [address] [id number]- [phone] Oct, [facility] [id number], [place] [address] Oct, Lumbar strain 847.2 [facility] [id number] [address] Oct, Gastroparesis 536.3 and Unspecified myalgia and myositis 729.1 [facility] [id number] [address] 14 Aug, 2014 [facility] [id number] [address] Aug, [facility] [id number] [address] Jul, [facility] [address] [id number] [address] Jul, [facility] [id number] [address] Jul, [facility] [id number] [address] Jul, [facility] [id number] [address] Jul, [facility] [address] [id number] [address] Jun, [facility] [id number] [address] Jun, [facility] [id number] [address] Jun, [facility] [id number] [address] May, [facility] [place] [facility] [address] [id number] [address] [address] May, [facility] [id number] [address] Mar, [facility] [place] [facility] [address] [id number] [address] Mar, [facility] [id number] [place] [address] Mar, [facility] [address] [id number] [place] [address] Mar, [facility] [place] [facility] [address] [id number] [place] [address] Mar, [facility] [address] [id number] [place] [address] Mar, [facility] [address] [id number] [place] [address] Feb, [facility] [address] [id number] [place] [address] Feb, [facility] [address] [id number] [place] [address] Nov, [facility] [address] [id number] [place] [address] Nov, [facility] [address] [id number] [place] [address] Nov, [facility] [address] [id number] [place] [address] Oct, [facility] [address] [id number] [place] [address] September, [facility] [address] [id number] [place] [address] Aug, [facility] [place] [facility] [address] [id number] [place] [address] 15 Aug, 2012 [facility] [place] [facility] [address] [id number] [place] [address] Aug, [facility] [place] [facility] [address] [id number] [place] [address] Aug, [facility] [place] [facility] [address] [id number] [place] [address] Aug, [facility] [place] [facility] [address] [id number] [place] [address] Aug, [facility] [address] [id number] [place] [address] Aug, [facility] [address] [id number] [place] [address] Aug, [facility] [place] [facility] [address] [id number] [place] [address] Jul, [facility] [address] [id number] [place] [address] Jul, [facility] [place] [facility] [address] [id number] [place] [address]- [address] Jun, [facility] [address] [facility] [id number] [place] [address] Jun, [facility] [address] [id number] [address] Jun, [facility] [address] [id number] [place] [address] Jun, [facility] [address] [id number] [address] Jun, [facility] [place] [facility] [address] [id number] [address] Jun, [facility] [place] [facility] [address] [id number] [address] Jun, [facility] [place] [facility] [address] [id number] [place] [address] May, [facility] [place] [facility] [address] [id number] [address] May, [facility] [place] [facility] [address] [id number] [place] [address] May, [facility] [place] [facility] [address] [facility] [id number] [place] [address] May, [facility] [address] [facility] [id number] [place] [address] Mar, [facility] [address] [facility] [id number] [place] [address] Mar, [facility] [address] [facility] [id number] [place] [address] Jan, IMMUNIZATIONS No Known Immunizations SOCIAL HISTORY Never Assessed REASON FOR VISIT Controlled Med Refill PLAN OF CARE VITAL SIGNS MEDICATIONS Unknown [...] High blood sugar 2016 Hospitalization History DKA, vomitting-[facility] 03/05/17 Hospitalization History hospital stay at [facility] for stomach issues 2016
--- OUTSIDE RECORDS SUMMARY | 2018-01-27 20:26 | XMS REPORT ---
Author Author NICANOR MACARIO Organization [facility] Address [address] [place] [address] Care Team Providers Care Motor And Controls Tester Name Role Phone NICANOR MACARIO Unavailable PROBLEMS Type Condition ICD9-CM Code [id number] Code Onset Dates Condition Status SNOMED Code Problem History of colon polyps Z86.010 Active 912760748 Problem Asthma exacerbation J45.901 Active 659703377 Problem Primary insomnia F51.01 Active 2094278 Problem Tobacco dependency F17.200 Active 74536672 Problem Low TSH level R94.6 Active 216430073 Problem Annual physical exam Z00.00 Active 823250683 Problem Diabetic polyneuropathy associated with type 2 diabetes mellitus E11.42 Active 68733379 Problem Reactive depression F32.9 Active 30038369 Problem Migraine without aura and without status migrainosus, not intractable G43.009 Active 383543646 Problem PTSD (post-traumatic stress disorder) F43.10 Active 43312316 Problem Diabetes E11.9 Active 31247038 Problem Gastroparesis K31.84 Active 222084453 Problem Back pain M54.9 Active 741135524 Problem Neuropathy G62.9 Active 107682948 Problem Type 2 diabetes mellitus with diabetic autonomic (poly)neuropathy E11.43 Active 52840997 Problem Uncomplicated asthma, unspecified asthma severity J45.909 Active 838683021 Problem 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.4 Active 055975288 Problem Anorexia R63.0 Active 03055488 Problem Mixed hyperlipidemia E78.2 Active 296528238 Problem Weight loss R63.4 Active 844080703 ALLERGIES No Information ENCOUNTERS Encounter Location Date Diagnosis [facility] [id number] [address] Jan, [facility] [id number], [place] [address] Oct, [facility] [address] [address]- [address]01 Oct, [facility] [address] 976308- 868 Oct, PTSD (post-traumatic stress disorder) F43.10 and Tobacco dependency F17.200 [facility] [address] 639049- 1255 Oct, [place] [address] 89344- 1063 Oct, Other dorsalgia M54.89 [place] [address] 968 Oct, Anorexia R63.0 [place] [address] 53732 7971 September, PTSD (post-traumatic stress disorder) F43.10 [place] [address] 89381 250 September, Low TSH level R94.6 [place] [address] 38796 9675 September, Other dorsalgia M54.89 [place] [id number] 812 September, Annual physical exam Z00.00 and Migraine without aura and without status migrainosus, not intractable G43.009 [place] [address] 88753- 8013 September, Abnormal TSH R94.6 and Dysfunction of left eustachian tube H69.82 [facility] [address] 70528- 6129 Aug, [facility] [address] 66775- 9939 Aug, Anorexia R63.0 [facility] [address] [id number] Aug, Dental examination Z01.20 and Xerostomia K11.7 [facility] [id number] [place] [address] 05910- 0617 Aug, Neuropathy G62.9 [facility] [id number] [place] [address] 09560- 7106 Aug, [place] [id number] [place] [address] 81407- 0161 Aug, Other dorsalgia M54.89 [place] [id number] [place] [address] 87169- 9244 Aug, Type 2 diabetes mellitus with diabetic autonomic (poly) neuropathy E11.43 ; Diabetic polyneuropathy associated with type 2 diabetes mellitus E11.42 ; Bronchitis J40 ; Gastroparesis K31.84 and Reactive depression F32.9 [place] [id number] [place] [address] 52522- 7823 Aug, PTSD (post-traumatic stress disorder) F43.10 [place] [id number] [place] [address] 21341- 6539 Aug, Other dorsalgia M54.89 and Anorexia R63.0 [place] [id number] [place] [address] 21080- 2092 Jul, [place] [id number] [place] [address] 83754- 2215 Jul, Other dorsalgia M54.89 [facility] [id number] [place] [address] 35026 2544 Jul, [place] [id number] [place] [address] 00685- 9678 Jul, [facility] [id number] [place] [address] 86331- 6795 Jul, PTSD (post-traumatic stress disorder) F43.10 [facility] [id number] [place] [address] 30481- 0532 Jul, [facility] [id number] [place] [address] 18495- 0456 Jul, [facility] [id number] [place] [address] 96250- 5856 Jul, [facility] [id number] [place] [address] 56964 2546 Jul, Anorexia R63.0 [facility] [address] 39991- 5586 Jun, [facility] [address] 40988- 5836 Jun, Vaginal discharge N89.8 ; Visit for gynecologic examination Z01.419 and Pelvic pressure in female R10.2 [facility] [id number] [place] [address] 36998- 6096 Jun, [facility] [id number] [place] [address] 95514- 8857 Jun, Other dorsalgia M54.89 [facility] [address] 05673- 6146 Jun, [facility] [id number] [place] [address] 74707- 3486 Jun, [facility] [id number] [place] [address] 30506- 2816 Jun, [facility] [id number] [place] [address] 61406 2546 May, Back pain M54.9 [facility] [address] 67460 2546 May, Anorexia R63.0 [facility] [id number] [place] [address] 03941 2546 May, Other dorsalgia M54.89 [facility] [address] 72764- 1815 May, [facility] [address] 95532- 5623 May, Bronchitis J40 [facility] [address] 82873- 2819 May, Type 2 diabetes mellitus with diabetic autonomic (poly) neuropathy E11.43 ; 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.4 ; Back pain M54.9 and Neuropathy G62.9 [facility] [address] 38645- 8405 May, Left breast mass N63.20 [facility] [address] 63478- 3532 May, [facility] [address] 43429- 3466 Apr, Other dorsalgia M54.89 [facility] [address] 77256- 1539 Apr, Anorexia R63.0 [facility] [address] 46050- 8117 Apr, Anorexia R63.0 [facility] [address] 47958- 3810 Apr, Mass of left breast N63.20 [facility] [address] 57300- 4962 Apr, [facility] [address] 95841- 1427 Apr, [facility] [address] 69947- 0649 14 Apr, 2017 Diarrhea of presumed infectious origin A09 [facility] [address] 68572- 2424 11 Apr, 2017 Encounter for immunization Z23 [facility] [address] [place] [address]- 7153 Apr, [facility] [id number] [place] [address] 88485- 9051 Mar, Other dorsalgia M54.89 [facility] [id number] [place] [address] 07699- 2165 Mar, [facility] [address] 42466- 4284 Mar, [facility] [id number] [place] [address] 56651- 8000 Mar, Anorexia R63.0 [facility] [address] 50552- 1945 Mar, [facility] [address] 92712- 7480 Mar, Other dorsalgia M54.89 [facility] [address] 37434- 2315 Mar, [facility] [address] 46624- 3308 Mar, Encounter for immunization Z23 [facility] [id number] [place] [address] 60209- 5858 Feb, Anorexia R63.0 [facility] [id number] [place] [address] 72869- 8555 Feb, Diabetes E11.9 [facility] [id number] [place] [address] 22529- 6913 Feb, Back pain M54.9 and Diabetes E11.9 [facility] [address] 58726- 6568 Feb, Diabetes E11.9 [facility] [id number] [place] [address] 61262- 3630 Feb, Neuropathy G62.9 [facility] [address] [place] [address]- 3843 Feb, Encounter for immunization Z23 ; Epigastric pain R10.13 ; Weight loss, abnormal R63.4 and Neuropathy G62.9 [facility] [address] [id number] Feb, [facility] [address] 73835- 3347 Feb, [facility] [address] 17054- 9018 Feb, Intractable vomiting with nausea, unspecified vomiting type R11.2 [facility] [address] 04355 -8374 Feb, Chronic nausea R11.0 [facility] [address] 28572- 9584 Feb, Other dorsalgia M54.89 [facility] [address] 29468- 2670 Jan, [facility] [address] 93879- 9355 Jan, [facility] [address] 50157- 8848 Jan, [facility] [address] 74317- 4172 Jan, [facility] [address] 71822- 7687 Jan, Asthma exacerbation J45.901 ; Bronchitis J40 and Neuropathy G62.9 [facility] [address] 41631- 3883 Jan, Anorexia R63.0 [facility] [address] 37392- 8887 Jan, Other dorsalgia M54.89 [facility] [address] [place] [address]- 2456 Dec, [facility] [id number] [place] [address] 11296- 0619 Dec, [facility] [address] 05496- 2173 Dec, Anorexia R63.0 [facility] [address] 83262- 0413 Dec, Primary insomnia F51.01 [facility] [address] 35285- 1198 Dec, Other dorsalgia M54.89 [facility] [address] 66725- 4628 Dec, [facility] [address] 39284- 1499 Nov, [facility] [address] 21634- 2480 Nov, [facility] [id number] [place] [address] 05907- 4741 Nov, [facility] [address] 34293- 9663 Nov, History of colon polyps Z86.010 [facility] [id number] [place] [address] 96879- 1058 Nov, Weight loss R63.4 ; Nausea and vomiting, intractability of vomiting not specified, unspecified vomiting type R11.2 and Abnormal LFTs R79.89 [facility] [id number] [place] [address] 23090- 1663 Nov, [facility] [address] 27871- 6110 Nov, Neuropathy G62.9 and Pain in right knee M25.561 [facility] [address] 57928- 7806 Nov, Back pain M54.9 [facility] [id number] [place] [address] 07548- 9750 Nov, [facility] [id number] [place] [address] 34150- 8644 Nov, Bronchitis J40 [facility] [id number] [place] [address] 50956- 1934 Nov, Weight loss R63.4 [facility] [id number] [place] [address] 02501- 4904 Oct, Back pain M54.9 [facility] [id number] [place] [address] 50910- 1038 Oct, [facility] [id number] [place] [address] 66212- 7688 Oct, Back pain M54.9 [facility] [id number] [place] [address] 47807- 9270 Oct, Type 2 diabetes mellitus without complications E11.9 and Bronchitis J40 [facility] [id number] [place] [address] 72764- 5154 Oct, [facility] [id number] [place] [address] 22859- 9033 Oct, [facility] [id number] [place] [address] 99028- 3671 September, Gastroparesis K31.84 ; Type 2 diabetes mellitus with diabetic autonomic (poly)neuropathy E11.43 and Neuropathy G62.9 [facility] [id number] [place] [address] 10713- 3025 September, Other dorsalgia M54.89 [facility] [id number] [place] [address] 24212- 0332 September, [facility] [id number] [place] [address] 18676- 3186 September, [facility] [address] [place] [address] 25383- 6954 Aug, Gastroparesis K31.84 and Radicular leg pain M54.10 [facility] [id number] [place] [address] 99243- 5638 Aug, Anorexia R63.0 [facility] [address] 11356- 2818 Aug, Bronchitis J40 [facility] [id number] [place] [address] 46556- 6219 Aug, Back pain M54.9 [place] [address] 65612- 7298 Aug, Routine gynecological examination Z01.419 ; Routine screening for STI (sexually transmitted infection) Z11.3 and Yeast infection of the vagina B37.3 [place] [id number] [place] [address] 86794- 4944 Jul, Other dorsalgia M54.89 [facility] [address] 72031- 0366 Jul, Diabetes E11.9 and Gastroparesis K31.84 [facility] [id number] [place] [address] 39068- 3494 Jun, [facility] [id number] [place] [address] 83509- 2119 Jun, Back pain M54.9 [facility] [id number] [place] [address] 96079- 2615 Jun, Neuropathy G62.9 [facility] [address] [id number] 02 Jun, 2016 Encounter for dental examination Z01.20 [facility] [id number] [place] [address] 94698- 5814 Jun, Gastroparesis 536.3 and Anorexia R63.0 [facility] [address] 30142 2546 27 May, 2016 Other dorsalgia M54.89 [facility] [address] 59694 2546 10 May, 2016 Periumbilical abdominal pain R10.33 ; Weight loss R63.4 and Gastroparesis K31.84 [facility] [address] 32500 2546 May, Back pain M54.9 [facility] [address] 05083 2546 Apr, Anorexia R63.0 [facility] [address] 25477 2546 Apr, Anorexia R63.0 [facility] [address] 66558 2546 Apr, Back pain M54.9 [facility] [address] 84585 2546 Apr, Back pain M54.9 [facility] [address] 80456 2546 Apr, [facility] [address] 78337 2546 Apr, Bronchitis J40 and Neuropathy G62.9 [facility] [address] 59955 2546 Apr, Neuropathy G62.9 [facility] [address] 57593 2546 Apr, [facility] [address] 03805 2546 Apr, Back pain M54.9 [facility] [address] 49181 2546 30 Nov, 2016 Type 2 diabetes mellitus with diabetic autonomic (poly) neuropathy E11.43 [facility] [address] [place] [address] 08586- 7570 Mar, Type 2 diabetes mellitus without complications E11.9 [facility] [id number] [place] [address] 41534- 8981 Mar, Neuropathy G62.9 [facility] [id number] [place] [address] 02871- 5638 Mar, [facility] [id number] [place] [address] 49718- 9718 Mar, Breast cancer screening Z12.39 [place] [id number] [place] [address] 99543- 9252 Mar, Other dorsalgia M54.89 [facility] [id number] [place] [address] 73458- 6799 Feb, [facility] [id number] [place] [address] 53426- 5702 Jan, Neuropathy G62.9 ; Type 2 diabetes mellitus with diabetic autonomic (poly)neuropathy E11.43 ; Uncomplicated asthma, unspecified asthma severity J45.909 and Encounter for immunization Z23 [facility] [id number] [place] [address] 80878- 7042 Jan, [facility] [address] [place] [address] 78122- 2033 Jan, [facility] [id number] [place] [address] 93277- 2446 Dec, [facility] [id number] [place] [address] 60082- 6490 Dec, [facility] [id number] [place] [address] 34428- 5684 Nov, [facility] [id number] [place] [address] 96517- 8030 Nov, Back pain M54.9 [facility] [id number] [place] [address] 00261- 3239 Nov, Neuropathy G62.9 ; Mixed hyperlipidemia E78.2 ; Type 2 diabetes mellitus with diabetic autonomic (poly)neuropathy E11.43 and group home current use of insulin Z79.4 [facility] [id number] [place] [address] 19993- 3352 Oct, [facility] [address] 66705- 3067 Oct, Other dorsalgia M54.89 [facility] [address] 98378- 8299 September, Primary insomnia F51.01 [facility] [id number] [place] [address] 53723- 5268 September, [facility] [address] 61717- 5664 Aug, Other dorsalgia M54.89 [facility] [id number] [place] [address] 08246- 0059 Jul, [facility] [id number] [place] [address] 35388- 0676 Jul, Other dorsalgia M54.89 [facility] [id number] [place] [address] 56371- 5258 Jul, Diabetes E11.9 ; Back pain M54.9 ; Neuropathy G62.9 and Gastroparesis K31.84 [facility] [id number] [place] [address] 93608- 8815 Jun, [facility] [address] 67811- 3516 Jun, Other dorsalgia M54.89 [facility] [id number] [place] [address] 70077- 9848 May, [facility] [id number] [place] [address] 81130- 1305 May, Radicular leg pain M54.10 and Other dorsalgia M54.89 [facility] [id number] [place] [address] 72680- 7010 Apr, [facility] [id number] [place] [address] 86899- 3395 Mar, [facility] [id number] [place] [address] 77154- 3646 Mar, [facility] [id number] [place] [address] 35936- 1313 Mar, Radicular leg pain M54.10 [facility] [id number] [place] [address] 65039- 8996 Feb, [facility] [id number] [place] [address] 53100- 2759 Feb, [facility] [id number] [place] [address] 03657- 3096 Feb, [facility] [id number] [place] [address] 31458- 1874 Jan, [facility] [id number] [place] [address] 65233- 7378 Jan, IBS (irritable bowel syndrome) 564.1 [facility] [id number] [place] [address] 11205- 7022 Jan, [facility] [id number] [place] [address] 02533- 2342 Jan, [facility] [id number] [place] [address] 00903- 7721 Jan, Diabetes mellitus without mention of complication, type II or unspecified type, not stated as uncontrolled 250.00 ; Gastroparesis 536.3 and Hypoacusis 389.9 [facility] [id number] [place] [address] 15296- 3624 Jan, [facility] [address] [address]- 8758 Jan, [facility] [address] [place] [address] 94793- 0131 Dec, [facility] [id number] [place] [address] 84660- 0033 Dec, [facility] [id number] [place] [address] 22749- 5416 Dec, [facility] [address] [place] [address] 27735- 9272 Dec, Back pain 724.5 and Gastroparesis 536.3 [facility] [address] [place] [address] 28936- 2130 Nov, [facility] [id number] [place] [address] [id number] Nov, Dental examination V72.2 [facility] [address] [place] [address] 42665- 1387 Nov, [facility] [id number] [place] [address] [phone]- [phone] Nov, [facility] [id number] [place] [address] [id number]- [phone] Nov, Depressive disorder, not elsewhere classified 311 and No condition on [place] II V71.09 [facility] [id number] [place] [address] [phone]- 3257 Nov, Diabetes 250.00 and Symptomatic menopausal or female climacteric states 627.2 [facility] [id number] [place] [address] [id number]- [phone] Oct, [facility] [id number] [address] Oct, Lumbar strain 847.2 [facility] [id number] [place] [address] [phone]- [phone] Oct, Gastroparesis 536.3 and Unspecified myalgia and myositis 729.1 [facility] [address] [facility] [id number], [place] [address] 14 Aug, 2014 [facility] [address] [facility] [id number], [place] [address] Aug, [facility] [address] [facility] [id number], [place] [address] Jul, [facility] [address] [facility] [id number] [address] Jul, [facility] [address] [facility] [id number], [place] [address] Jul, [facility] [address] [id number], [place] [address] Jul, [facility] [address] [id number], [place] [address] Jul, [facility] [address] [id number], [place] [address] Jun, [facility] [address] [id number], [place] [address] Jun, [facility] [address] [id number], [place] [address] Jun, [facility] [address] [facility] [id number] [address] May, [facility] [address] [facility] [id number] [address] May, [facility] [address] [facility] [id number], [place] [address] Mar, [facility] [address] [id number] [address] Mar, [facility] [id number] [address] Mar, [facility] [place] [facility] [address] [id number] [place] [address] Mar, [facility] [place] [facility] [address] [id number] [place] [address] Mar, [facility] [place] [facility] [address] [id number] [place] [address] Mar, [facility] [place] [facility] [address] [id number] [place] [address] Feb, [facility] [place] [facility] [address] [id number] [place] [address] Feb, [facility] [place] [facility] [address] [id number] [place] [address] Nov, [facility] [place] [facility] [address] [id number] [place] [address] Nov, [facility] [place] [facility] [address] [id number] [place] [address] Nov, [facility] [place] [facility] [address] [id number] [place] [address] Oct, [facility] [place] [facility] [address] [id number] [place] [address] September, [facility] [place] [facility] [address] [id number] [place] [address] Aug, [facility] [place] [facility] [address] [id number] [place] [address] 15 Aug, 2012 [facility] [place] [facility] [address] [id number] [place] [address] Aug, [facility] [place] [facility] [address] [id number] [place] [address] Aug, [facility] [place] [facility] [address] [id number] [place] [address] Aug, [facility] [place] [facility] [address] [id number] [place] [address] Aug, [facility] [place] [facility] [address] [id number] [place] [address] Aug, [facility] [place] [facility] [address] [id number] [place] [address] Aug, [facility] [place] [facility] [address] [id number] [place] [address] Jul, [facility] [place] [facility] [address] [id number] [place] [address] Jul, [facility] [place] [facility] [address] [id number] [place] [address] Jun, [facility] [place] [facility] [address] [id number] [place] [address] Jun, [facility] [place] [facility] [address] [id number] [place] [address] Jun, [facility] [place] [facility] [address] [id number] [place] [address] Jun, [facility] [place] [facility] [address] [id number] [place] [address] Jun, [facility] [place] [facility] [address] [id number] [place] [address] Jun, [facility] [place] [facility] [address] [id number] [place] [address] Jun, [facility] [place] [facility] [address] [id number] [place] [address] May, [facility] [place] [facility] [address] [id number] [place] [address] May, [facility] [place] [facility] [address] [id number] [place] [address] May, [facility] [place] [facility] [address] [id number] [place] [address] May, [facility] [address] [facility] [id number] [place] [address] Mar, [facility] [address] [facility] [id number] [address] Mar, [facility] [address] [facility] [id number] [place] [address] Jan, IMMUNIZATIONS No Known Immunizations SOCIAL HISTORY Never Assessed REASON FOR VISIT oxycodone 06/20/2017 PLAN OF CARE VITAL SIGNS MEDICATIONS Medication Instructions Dosage Frequency Start Date End Date Duration Status Oxycodone-Acetaminophen 10-325 MG Orally 4 times a day 1 tablet as needed 6h May, 28 days Active RESULTS No Results [...] 03/05/17 Hospitalization History hospital stay at [facility] for stomach issues 2016
--- OUTSIDE RECORDS SUMMARY | 2018-01-27 20:27 | XMS REPORT ---
Author Author TEJ CLARK [facility] Address [address] [place] [address] Care Team Providers Care Senior Games Technician Name Role Phone TEJ CLARK Unavailable PROBLEMS Type Condition ICD9-CM Code AML11-FP Code Onset Dates Condition Status SNOMED Code Problem Weight loss R63.4 Active 027805941 Problem Primary insomnia F51.01 Active 6534255 Problem History of colon polyps Z86.010 Active 992370449 Problem Annual physical exam Z00.00 Active 080669946 Problem Migraine without aura and without status migrainosus, not intractable G43.009 Active 576573874 Problem Reactive depression F32.9 Active 50739236 Problem Asthma exacerbation J45.901 Active 475838096 Problem PTSD (post-traumatic stress disorder) F43.10 Active 62494240 Problem Diabetic polyneuropathy associated with type 2 diabetes mellitus E11.42 Active 13701206 Problem Neuropathy G62.9 Active 301690879 Problem Diabetes E11.9 Active 31622265 Problem Low TSH level R94.6 Active 244388452 Problem Back pain M54.9 Active 177453606 Problem Mixed hyperlipidemia E78.2 Active 025629502 Problem Type 2 diabetes mellitus with diabetic autonomic (poly)neuropathy E11.43 Active 17370871 Problem Gastroparesis K31.84 Active 226198063 Problem Uncomplicated asthma, unspecified asthma severity J45.909 Active 939521068 Problem correction current use of insulin Z79.4 Active 883624500 Problem Anorexia R63.0 Active 83820971 ALLERGIES No Information ENCOUNTERS Encounter Location Date Diagnosis [facility] [id number], [place] [address] Oct, [facility] [id number], [place] [address] Oct, [facility] [id number] [place] [address] 14822- 8731 Oct, Other dorsalgia M54.89 [facility] [id number] [place] [address] 86159- 7748 Oct, Anorexia R63.0 [facility] [id number] [place] [address] 10627- 9728 September, PTSD (post-traumatic stress disorder) F43.10 [facility] [address] 90485- 7944 September, Low TSH level R94.6 [facility] [id number] [place] [address] 15051- 5690 September, Other dorsalgia M54.89 [facility] [id number] [place] [address] 97488- 9538 September, Annual physical exam Z00.00 and Migraine without aura and without status migrainosus, not intractable G43.009 [facility] [id number] [place] [address] 05400- 2838 September, Abnormal TSH R94.6 and Dysfunction of left eustachian tube H69.82 [facility] [id number] [place] [address] 06995- 6048 Aug, [facility] [id number] [place] [address] 12493- 4884 Aug, Anorexia R63.0 [facility] [id number] [place] [address] [id number] Aug, Dental examination Z01.20 and Xerostomia K11.7 [facility] [facility] [address] 54514- 9370 Aug, Neuropathy G62.9 [facility] [id number] [place] [address] 16054- 5806 Aug, [facility] [address] 66597- 5944 Aug, Other dorsalgia M54.89 [facility] [id number] [place] [address] 88117 2546 16 Aug, 2017 Type 2 diabetes mellitus with diabetic autonomic (poly) neuropathy E11.43 ; Diabetic polyneuropathy associated with type 2 diabetes mellitus E11.42 ; Bronchitis J40 ; Gastroparesis K31.84 and Reactive depression F32.9 [facility] [address] 71848 2546 Aug, PTSD (post-traumatic stress disorder) F43.10 [facility] [id number] [place] [address] 55327 2546 Aug, Other dorsalgia M54.89 and Anorexia R63.0 [facility] [address] 71472 2546 Jul, [facility] [address] 01428 2546 Jul, Other dorsalgia M54.89 [facility] [id number] [place] [address] 09452 2546 Jul, [facility] [id number] [place] [address] 85437 2546 Jul, [facility] [id number] [place] [address] 39406 2546 Jul, PTSD (post-traumatic stress disorder) F43.10 [facility] [id number] [place] [address] 34236 2546 Jul, [facility] [id number] [place] [address] 82636 2546 Jul, [facility] [id number] [place] [address] 68747 2546 Jul, [facility] [id number] [place] [address] 36653 2546 Jul, Anorexia R63.0 [facility] [address] [place] [address]- 7574 Jun, [facility] [id number] [place] [address] 06721- 1902 Jun, Vaginal discharge N89.8 ; Visit for gynecologic examination Z01.419 and Pelvic pressure in female R10.2 [facility] [address] 94537- 4056 Jun, [facility] [address] 42434- 3557 Jun, Other dorsalgia M54.89 [facility] [address] 95027- 8356 Jun, [facility] [address] 09004- 5330 Jun, [facility] [address] 39120- 6617 Jun, [facility] [id number] [place] [address] 63184- 2555 May, Back pain M54.9 [facility] [address] 94225- 7366 May, Anorexia R63.0 [facility] [id number] [place] [address] 73628- 9782 May, Other dorsalgia M54.89 [facility] [address] 73730- 4325 May, [facility] [address] 49565- 0475 May, Bronchitis J40 [facility] [address] 74893- 8000 May, Type 2 diabetes mellitus with diabetic autonomic (poly) neuropathy E11.43 ; 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 use of insulin Z79.4 ; Back pain M54.9 and Neuropathy G62.9 [facility] [id number] [place] [address] 31963- 5773 May, Left breast mass N63.20 [facility] [id number] [place] [address] 93461- 2406 May, [facility] [id number] [place] [address] 44374- 2286 Apr, Other dorsalgia M54.89 [facility] [id number] [place] [address] 94531- 8618 Apr, Anorexia R63.0 [facility] [address] 20766- 0856 Apr, Anorexia R63.0 [facility] [id number] [place] [address] 09174- 8205 Apr, Mass of left breast N63.20 [facility] [id number] [place] [address] 94083- 0746 Apr, [facility] [id number] [place] [address] 82001- 6475 Apr, [facility] [id number] [place] [address] 59950- 3908 Apr, Diarrhea of presumed infectious origin A09 [facility] [id number] [place] [address] 08873- 8328 Apr, Encounter for immunization Z23 [facility] [id number] [place] [address] 10780- 4675 Apr, [facility] [id number] [place] [address] 24934- 0190 Mar, Other dorsalgia M54.89 [facility] [id number] [place] [address] 31308- 0053 Mar, [facility] [id number] [place] [address] 46804- 6142 Mar, [facility] [id number] [place] [address] 12324- 6915 Mar, Anorexia R63.0 [facility] [id number] [place] [address] 47124- 2720 Mar, [facility] [id number] [place] [address] 70067- 8959 Mar, Other dorsalgia M54.89 [facility] [id number] [place] [address] 44965- 4439 Mar, [facility] [id number] [place] [address] 79311- 3446 Mar, Encounter for immunization Z23 [facility] [id number] [place] [address] 20034- 6550 Feb, Anorexia R63.0 [facility] [address] 94350- 3804 Feb, Diabetes E11.9 [facility] [id number] [place] [address] 79521- 0318 Feb, Back pain M54.9 and Diabetes E11.9 [facility] [id number] [place] [address] 71940- 6787 Feb, Diabetes E11.9 [facility] [id number] [place] [address] 14656- 8960 Feb, Neuropathy G62.9 [facility] [id number] [place] [address] 58624- 1585 Feb, Encounter for immunization Z23 ; Epigastric pain R10.13 ; Weight loss, abnormal R63.4 and Neuropathy G62.9 [facility] [id number] [place] [address] [id number] Feb, [facility] [id number] [place] [address] 33443- 0816 Feb, [facility] [address] [place] [address]- 0766 Feb, Intractable vomiting with nausea, unspecified vomiting type R11.2 [facility] [address] 97629 -8851 Feb, Chronic nausea R11.0 [facility] [id number] [place] [address] 94857- 3986 Feb, Other dorsalgia M54.89 [facility] [address] 58774- 7332 Jan, [facility] [address] 65959- 7222 Jan, [facility] [address] 52230- 6717 Jan, [facility] [address] 95014- 5637 Jan, [facility] [id number] [place] [address] 42789- 1519 Jan, Asthma exacerbation J45.901 ; Bronchitis J40 and Neuropathy G62.9 [facility] [id number] [place] [address] 21115- 9269 Jan, Anorexia R63.0 [facility] [id number] [place] [address] 56553- 5231 Jan, Other dorsalgia M54.89 [facility] [id number] [place] [address] 87247- 4714 Dec, [facility] [id number] [place] [address] 74514- 1308 Dec, [facility] [id number] [place] [address] 86156- 4731 Dec, Anorexia R63.0 [facility] [id number] [place] [address] 82166- 8607 Dec, Primary insomnia F51.01 [facility] [id number] [place] [address] 10082- 3039 Dec, Other dorsalgia M54.89 [facility] [id number] [place] [address] 72254- 7726 Dec, [facility] [id number] [place] [address] 74143- 4322 Nov, [facility] [id number] [place] [address] 94254- 8397 Nov, [facility] [id number] [place] [address] 58622- 7939 Nov, [facility] [id number] [place] [address] 59862- 0632 Nov, History of colon polyps Z86.010 [facility] [id number] [place] [address] 76889- 4377 Nov, Weight loss R63.4 ; Nausea and vomiting, intractability of vomiting not specified, unspecified vomiting type R11.2 and Abnormal LFTs R79.89 [facility] [id number] [place] [address] 19761- 3719 Nov, [facility] [id number] [place] [address] 18829- 1326 Nov, Neuropathy G62.9 and Pain in right knee M25.561 [facility] [id number] [place] [address] 65871- 1001 Nov, Back pain M54.9 [facility] [id number] [place] [address] 22383- 9564 Nov, [facility] [id number] [place] [address] 45014- 8732 Nov, Bronchitis J40 [facility] [id number] [place] [address] 37735- 2675 Nov, Weight loss R63.4 [facility] [address] [place] [address] 58186- 7971 16 Oct, 2016 Back pain M54.9 [facility] [id number] [place] [address] 39171- 7241 16 Oct, 2016 [facility] [id number] [place] [address] 31746- 7967 14 Oct, 2016 Back pain M54.9 [facility] [id number] [place] [address] 90469- 7854 13 Oct, 2016 Type 2 diabetes mellitus without complications E11.9 and Bronchitis J40 [facility] [address] 49398- 9380 Oct, [facility] [id number] [place] [address] 52757- 2338 Oct, [facility] [id number] [place] [address] 38806- 2684 September, Gastroparesis K31.84 ; Type 2 diabetes mellitus with diabetic autonomic (poly)neuropathy E11.43 and Neuropathy G62.9 [facility] [id number] [place] [address] 46090- 8811 September, Other dorsalgia M54.89 [facility] [id number] [place] [address] 81016- 4774 September, [facility] [id number] [place] [address] 77029- 9778 September, [facility] [id number] [place] [address] 22678- 1557 Aug, Gastroparesis K31.84 and Radicular leg pain M54.10 [facility] [id number] [place] [address] 56343- 3923 Aug, Anorexia R63.0 [facility] [id number] [place] [address] 18149- 5482 Aug, Bronchitis J40 [facility] [id number] [place] [address] 25071- 5449 Aug, Back pain M54.9 [facility] [address] 12854- 9892 Aug, Routine gynecological examination Z01.419 ; Routine screening for STI (sexually transmitted infection) Z11.3 and Yeast infection of the vagina B37.3 [facility] [address] 71514- 5538 Jul, Other dorsalgia M54.89 [facility] [address] 57047- 4018 Jul, Diabetes E11.9 and Gastroparesis K31.84 [facility] [address] 93436- 7487 Jun, [facility] [address] 75044- 5749 Jun, Back pain M54.9 [facility] [address] 87340- 9364 14 Jun, 2016 Neuropathy G62.9 [facility] [address] [id number] 02 Jun, 2016 Encounter for dental examination Z01.20 [facility] [id number] [place] [address] 89590- 5465 Jun, Gastroparesis 536.3 and Anorexia R63.0 [facility] [address] 03909- 0471 May, Other dorsalgia M54.89 [facility] [address] 79315- 7816 May, Periumbilical abdominal pain R10.33 ; Weight loss R63.4 and Gastroparesis K31.84 [facility] [address] 85215- 2125 May, Back pain M54.9 [facility] [id number] [place] [address] 41920 2546 Apr, Anorexia R63.0 [facility] [id number] [place] [address] 16984 2546 Apr, Anorexia R63.0 [facility] [id number] [place] [address] 65547 2546 Apr, Back pain M54.9 [facility] [id number] [place] [address] 05215 2546 15 Apr, 2016 Back pain M54.9 [facility] [id number] [place] [address] 41050 2546 Apr, [facility] [id number] [place] [address] 37418 2546 Apr, Bronchitis J40 and Neuropathy G62.9 [facility] [id number] [place] [address] 18743 2546 Apr, Neuropathy G62.9 [facility] [id number] [place] [address] 74234 2546 Apr, [facility] [id number] [place] [address] 96311 2546 Apr, Back pain M54.9 [facility] [id number] [place] [address] 84959 2546 Mar, Type 2 diabetes mellitus with diabetic autonomic (poly) neuropathy E11.43 [facility] [id number] [place] [address] 86015 2546 Mar, Type 2 diabetes mellitus without complications E11.9 [facility] [id number] [place] [address] 04231 2546 Mar, Neuropathy G62.9 [facility] [id number] [place] [address] 81293 2546 Mar, [facility] [id number] [place] [address] 34433- 4388 Mar, Breast cancer screening Z12.39 [facility] [id number] [place] [address] 68724- 7573 Mar, Other dorsalgia M54.89 [facility] [id number] [place] [address] 87643- 7212 Feb, [facility] [address] 41054- 1422 30 Jan, 2016 Neuropathy G62.9 ; Type 2 diabetes mellitus with diabetic autonomic (poly)neuropathy E11.43 ; Uncomplicated asthma, unspecified asthma severity J45.909 and Encounter for immunization Z23 [facility] [id number] [place] [address] 14346- 2481 Jan, [facility] [address] 64791- 3989 Jan, [facility] [id number] [place] [address] 97893- 0246 Dec, [facility] [id number] [place] [address] 30584- 3613 Dec, [facility] [id number] [place] [address] 71035- 8093 Nov, [facility] [id number] [place] [address] 52428- 9788 Nov, Back pain M54.9 [facility] [id number] [place] [address] 38537- 3655 Nov, Neuropathy G62.9 ; Mixed hyperlipidemia E78.2 ; Type 2 diabetes mellitus with diabetic autonomic (poly)neuropathy E11.43 and 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 use of insulin Z79.4 [facility] [id number] [place] [address] 38826- 7877 Oct, [facility] [address] 78152- 1225 Oct, Other dorsalgia M54.89 [facility] [id number] [place] [address] 63884- 9360 September, Primary insomnia F51.01 [facility] [id number] [place] [address] 06953- 7586 September, [facility] [id number] [place] [address] 41956- 9487 Aug, Other dorsalgia M54.89 [facility] [id number] [place] [address] 10070- 0937 Jul, [facility] [id number] [place] [address] 59876- 8950 Jul, Other dorsalgia M54.89 [facility] [id number] [place] [address] 37038- 4338 Jul, Diabetes E11.9 ; Back pain M54.9 ; Neuropathy G62.9 and Gastroparesis K31.84 [facility] [id number] [place] [address] 27557- 2446 Jun, [facility] [id number] [place] [address] 65871- 4299 Jun, Other dorsalgia M54.89 [facility] [id number] [place] [address] 39062- 7827 May, [facility] [id number] [place] [address] 04101- 6137 May, Radicular leg pain M54.10 and Other dorsalgia M54.89 [facility] [id number] [place] [address] 93241- 1704 Apr, [facility] [id number] [place] [address] 11944- 4027 Mar, [facility] [id number] [place] [address] 43039- 5432 Mar, [facility] [address] [address]- 8180 Mar, Radicular leg pain M54.10 [facility] [address] 4812 Feb, [facility] [id number] [place] [address] 223149- 7115 Feb, [facility] [id number] [place] [address] 11017- 4931 Feb, [facility] [id number] [place] [address] 44120- 8741 Jan, [facility] [id number] [place] [address] 07915- 9832 Jan, IBS (irritable bowel syndrome) 564.1 [facility] [id number] [place] [address] 21508- 0637 Jan, [facility] [id number] [place] [address] 26891- 0814 Jan, [facility] [id number] [place] [address] 19850- 3351 Jan, Diabetes mellitus without mention of complication, type II or unspecified type, not stated as uncontrolled 250.00 ; Gastroparesis 536.3 and Hypoacusis 389.9 [facility] [id number] [place] [address] 91384- 8713 Jan, [facility] [id number], [place] [address] Jan, [facility] [id number] [place] [address] [id number]- 9658 Dec, [facility] [id number] [address] Dec, [facility] [id number] [place] [address] 41535- 5972 Dec, [facility] [id number] [address] Dec, Back pain 724.5 and Gastroparesis 536.3 [facility] [id number], [place] [address] Nov, [facility] [id number] [place] [address] [id number] Nov, Dental examination V72.2 [facility] [id number] [place] [address] 79255- 2599 Nov, [facility] [id number] [place] [address] 80801- 8470 Nov, [facility] [id number] [place] [address] 67358- 6644 Nov, Depressive disorder, not elsewhere classified 311 and No condition on Maud II V71.09 [facility] [id number] [address] Nov, Diabetes 250.00 and Symptomatic menopausal or female climacteric states 627.2 [facility] [id number], [place] [address] Oct, [facility] [id number] [address] Oct, Lumbar strain 847.2 [facility] [id number] [place] [address] 63930- 7666 Oct, Gastroparesis 536.3 and Unspecified myalgia and myositis 729.1 [facility] [id number] [place] [address] 40100- 4008 Aug, [facility] [id number] [address] Aug, [facility] [id number] [place] [address] 36933- 2055 Jul, [facility] [place] [facility] [address] [id number] [place] [address] Jul, [facility] [place] [facility] [address] [id number] [place] [address]- 4[address] Jul, [facility] [place] [facility] [address] [id number] [place] [address]- 0434 Jul, [facility] [place] [facility] [address] [id number] [place] [address]- 1400 Jul, [facility] [place] [facility] [address] [id number] [place] [address]- 6[address] Jun, [facility] [place] [facility] [address] [id number] [place] [address]- 3242 Jun, [facility] [place] [facility] [address] [id number] [place] [address]- 1471 Jun, [facility] [place] [facility] [address] [id number] [place] [address] May, [facility] [place] [facility] [address] [id number] [place] [address] May, [facility] [place] [facility] [address] [id number] [place] [address] Mar, [facility] [place] [facility] [address] [id number] [place] [address] Mar, [facility] [place] [facility] [address] [id number] [place] [address] Mar, [facility] [place] [facility] [address] [id number] [place] [address] Mar, [facility] [place] [facility] [address] [id number] [place] [address] Mar, [facility] [place] [facility] [address] [id number] [place] [address] Mar, [facility] [place] [facility] [address] [id number] [place] [address] Feb, [facility] [address] [id number] [place] [address] Feb, [facility] [address] [id number] [place] [address] Nov, [facility] [address] [id number] [place] [address] Nov, [facility] [address] [id number] [place] [address] Nov, [facility] [address] [id number] [place] [address] Oct, [facility] [address] [id number] [place] [address] September, [facility] [address] [id number] [place] [address] Aug, [facility] [address] [id number] [place] [address] Aug, [facility] [address] [id number] [place] [address] Aug, [facility] [address] [id number] [place] [address] Aug, [facility] [address] [id number] [place] [address] Aug, [facility] [address] [id number] [place] [address] Aug, [facility] [address] [id number] [place] [address] Aug, [facility] [address] [id number] [place] [address] Aug, [facility] [address] [id number] [place] [address] Jul, [facility] [address] [facility] [id number] [place] [address] Jul, [facility] [address] [facility] [id number] [place] [address] Jun, [facility] [address] [facility] [id number] [place] [address] Jun, [facility] [address] [facility] [id number] [place] [address] Jun, [facility] [address] [facility] [id number] [place] [address] 08 Jun, 2012 [facility] [address] [facility] [id number] [place] [address] Jun, [facility] [id number] [place] [address] Jun, [facility] [address] [id number] [address] Jun, [facility] [id number], [place] [address] May, [facility] [address] [id number] [address] May, [facility] [address] [id number] [address] May, [facility] [address] [id number] [address] May, [facility] [address] [id number] [address] Mar, [facility] [address] [id number] Mar, [facility] [address] [id number] [id number] Jan, 2012 IMMUNIZATIONS No Known Immunizations SOCIAL HISTORY Never Assessed REASON FOR VISIT f/u mammo PLAN OF CARE VITAL SIGNS MEDICATIONS Unknown [...] 03/05/17 Hospitalization History hospital stay at [facility] for stomach issues 2016
--- OUTSIDE RECORDS SUMMARY | 2018-01-27 20:28 | XMS REPORT ---
Author Author HORACE HIGGINS [facility] Address [address] [place] [address] Care Team Providers Care Detail Supervisor Name Role Phone HORACE HIGGINS Unavailable PROBLEMS Type Condition ICD9-CM Code [id number] Code Onset Dates Condition Status SNOMED Code Problem Weight loss R63.4 Active 678783496 Problem Primary insomnia F51.01 Active 5652698 Problem History of colon polyps Z86.010 Active 871715613 Problem Annual physical exam Z00.00 Active 982058206 Problem Migraine without aura and without status migrainosus, not intractable G43.009 Active 355986738 Problem Reactive depression F32.9 Active 12428550 Problem Asthma exacerbation J45.901 Active 595979583 Problem PTSD (post-traumatic stress disorder) F43.10 Active 14232449 Problem Diabetic polyneuropathy associated with type 2 diabetes mellitus E11.42 Active 35727109 Problem Neuropathy G62.9 Active 566441124 Problem Diabetes E11.9 Active 14336088 Problem Low TSH level R94.6 Active 556366483 Problem Back pain M54.9 Active 174236879 Problem Mixed hyperlipidemia E78.2 Active 517135460 Problem Type 2 diabetes mellitus with diabetic autonomic (poly)neuropathy E11.43 Active 30419034 Problem Gastroparesis K31.84 Active 254623269 Problem Uncomplicated asthma, unspecified asthma severity J45.909 Active 329739447 Problem 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 [address] [address] Oct, [facility] [id number], [place] [address] Oct, [facility] [id number] [place] [address] 50280- 3397 Oct, Anorexia R63.0 [place] [id number] [place] [address] 535676- 7162 September, PTSD (post-traumatic stress disorder) F43.10 [place] [address] 66124- 8910 September, Low TSH level R94.6 [place] [address] 01283- 5595 September, Other dorsalgia M54.89 [place] [address] 93478- 4185 September, Annual physical exam Z00.00 and Migraine without aura and without status migrainosus, not intractable G43.009 [place] [address] 73569- 6443 September, Abnormal TSH R94.6 and Dysfunction of left eustachian tube H69.82 [place] [id number] [place] [address] 91665- 6285 Aug, [facility] [address] 46810- 7216 Aug, Anorexia R63.0 [facility] [address] [id number] Aug, Dental examination Z01.[address] [facility] [id number] [place] [address] 86475- 9763 Aug, Neuropathy G62.9 [place] [address] 68723- 6066 Aug, [place] [address] [place] [id number]- 1110 Aug, Other dorsalgia M54.89 [place] [address] 18419- 8253 Aug, Type 2 diabetes mellitus with diabetic autonomic (poly) neuropathy E11.43 ; Diabetic polyneuropathy associated with type 2 diabetes mellitus E11.42 ; Bronchitis J40 ; Gastroparesis K31.84 and Reactive depression F32.9 [facility] [address] 42968 2546 Aug, PTSD (post-traumatic stress disorder) F43.10 [facility] [address] 03183 2546 Aug, Other dorsalgia M54.[address] [facility] [address] [address] 2546 Jul, [facility] [address] 18987- 6746 Jul, Other dorsalgia M54.89 [facility] [address] 30033- 5336 Jul, [facility] [address] [address] 2546 Jul, [facility] [address] 04027- 9757 Jul, PTSD (post-traumatic stress disorder) F43.10 [facility] [id number] [place] [address] 31894- 0776 Jul, [facility] [address] 07180 2546 Jul, [facility] [id number] [place] [address] 45361 2546 Jul, [facility] [address] 97484 2546 Jul, Anorexia R63.0 [facility] [id number] [place] [address] 37606- 2426 Jun, [facility] [address] [id number]- 2546 Jun, Vaginal discharge N89.8 ; Visit for gynecologic examination Z01.419 and Pelvic pressure in female R10.2 [facility] [id number] [place] [address] 91981- 0896 Jun, [facility] [id number] [place] [address] 40878- 1510 Jun, Other dorsalgia M54.89 [facility] [address] 74406- 9619 Jun, [facility] [address] 90249- 6896 Jun, [facility] [address] 05324- 7014 Jun, [facility] [address] 16655- 3032 May, Back pain M54.9 [facility] [id number] [place] [address] 76208- 9127 May, [address]ore[address] R63.0 [facility] [address] 12553- 3983 May, Other dorsalgia M54.89 [facility] [id number] [place] [address] 95268- 8467 May, [facility] [id number] [place] [address] 17238- 1041 May, Bronchitis J40 [facility] [id number] [place] [address] 94882- 6834 May, Type 2 diabetes mellitus with diabetic autonomic (poly) neuropathy E11.43 ; residential current use of insulin Z79.4 ; Back pain M54.[address] [facility] [id number] [place] [address] 43052- 9623 May, Left breast mass N63.20 [facility] [id number] [place] [address] 69975- 5074 May, [facility] [id number] [place] [address] 80772- 0176 Apr, Other dorsalgia M54.89 [facility] [id number] [place] [address] 24634 2546 Apr, Anorexia R63.0 [facility] [id number] [place] [address] 77152 2546 Apr, Anorexia R63.0 [facility] [id number] [place] [address] 32656- 1351 Apr, Mass of left breast N63.20 [facility] [id number] [place] [address] 51892- 8783 Apr, [facility] [address] 95704- 7216 Apr, [facility] [id number] [place] [address] 63780- 5779 Apr, Diarrhea of presumed infectious origin A09 [facility] [id number] [place] [address] 98192- 2256 Apr, Encounter for immunization Z23 [facility] [id number] [place] [address] 96165- 4519 Apr, [facility] [id number] [place] [address] 79048- 0498 Mar, Other dorsalgia M54.89 [facility] [id number] [place] [address] 99828 2546 Mar, [facility] [id number] [place] [address] 18758 2542 Mar, [facility] [id number] [place] [address] 19451- 3806 Mar, Anorexia R63.0 [facility] [id number] [place] [address] 06467- 5657 Mar, [facility] [address] 35572- 3255 Mar, Other dorsalgia M54.89 [facility] [address] 29286- 2836 Mar, [facility] [address] 03334- 5210 Mar, Encounter for immunization Z23 [facility] [address] 52560- 8717 Feb, Anorexia R63.0 [facility] [address] 24891- 3543 Feb, Diabetes E11.9 [facility] [address] 00694- 8467 Feb, Back pain M54.[address] [facility] [address] 97801- 8004 Feb, Diabetes E11.9 [facility] [address] 77498- 4992 Feb, Neuropathy G62.9 [facility] [id number] [place] [address] 52217- 5365 Feb, Encounter for immunization Z23 ; Epigastric pain R10.13 ; Weight loss, abnormal R63.4 and Neuropathy G62.9 [facility] [id number] [place] [address] [id number] Feb, [facility] [address] 74149- 3924 Feb, [facility] [id number] [place] [address] 39132- 4346 Feb, Intractable vomiting with nausea, unspecified vomiting type R11.2 [facility] [id number] [place] [address] 63594 -4749 Feb, Chronic nausea R11.0 [facility] [address] 56296- 5881 Feb, Other dorsalgia M54.89 [facility] [id number] [place] [address] 42585- 2632 Jan, [facility] [address] 43153- 3728 Jan, [facility] [address] 28840- 7253 Jan, [facility] [address] 82068- 1777 Jan, [facility] [address] 75041- 2343 Jan, Asthma exacerbation J45.901 ; Bronchitis J40 and Neuropathy G62.9 [facility] [id number] [place] [address] 80697- 2111 Jan, Anorexia R63.0 [facility] [address] 77751- 7231 Jan, Other dorsalgia M54.89 [facility] [id number] [place] [address] 99749- 8968 Dec, [facility] [id number] [place] [address] 87134- 3427 Dec, [facility] [id number] [place] [address] 76179- 7615 Dec, Anorexia R63.0 [facility] [id number] [place] [address] 03943- 9522 Dec, Primary insomnia F51.01 [facility] [id number] [place] [address] 84627- 8120 Dec, Other dorsalgia M54.89 [facility] [address], [place] [address]- 5726 Dec, [facility] [id number] [place] [address] 19074- 9597 Nov, [facility] [id number] [place] [address] 92332- 2875 Nov, [facility] [id number] [place] [address] 20163- 3175 Nov, [facility] [id number] [place] [address] 01653- 8267 Nov, History of colon polyps Z86.010 [facility] [id number] [place] [address] 88538- 8235 Nov, Weight loss R63.4 ; Nausea and vomiting, intractability of vomiting not specified, unspecified vomiting type R11.2 [address]89 [facility] [id number] [place] [address] 33018- 9714 Nov, [facility] [id number] [place] [address] 39228- 0679 Nov, Neuropathy G62.9 and Pain in right knee M25.561 [facility] [id number] [place] [address] 88755- 6868 Nov, Back pain M54.9 [facility] [id number] [place] [address] 85043- 7025 Nov, [facility] [id number] [place] [address] 72049- 8452 Nov, Bronchitis J40 [facility] [id number] [place] [address] 46646- 3865 Nov, Weight loss R63.4 [facility] [id number] [place] [address] 32319- 4498 Oct, Back pain M54.9 [facility] [address], [place] [address]- 7574 16 Oct, 2016 [facility] [id number] [place] [address] 17669- 2904 14 Oct, [address] [facility] [id number] [place] [address] 24145- 1256 13 Oct, 2016 Type 2 diabetes mellitus without complications E11.[address] [facility] [id number] [place] [address] 01090- 0681 Oct, [facility] [id number] [place] [address] 13565- 4222 Oct, [facility] [id number] [place] [address] 00261- 2295 September, Gastroparesis K31.84 ; Type 2 diabetes mellitus with diabetic autonomic (poly)neuropathy E11.[address] [facility] [id number] [place] [address] 15807- 4905 September, Other dorsalgia M54.89 [facility] [id number] [place] [address] 48280- 6956 September, [facility] [id number] [place] [address] 46802- 3718 September, [facility] [id number] [place] [address] 17271- 1298 Aug, Gastroparesis K31.84 and Radicular leg pain M54.10 [facility] [id number] [place] [address] 85955- 5688 Aug, Anorexia R63.0 [facility] [id number] [place] [address] 60949- 3816 Aug, Bronchitis J40 [facility] [id number] [place] [address] 19250- 2612 Aug, Back pain M54.9 [facility] [id number] [place] [address] 21102- 4196 Aug, Routine gynecological examination Z01.419 ; Routine screening for STI (sexually transmitted infection) Z11.3 and Yeast infection of the vagina B37.3 [facility] [address] [place] [address] 12423- 4709 Jul, Other dorsalgia M54.89 [place] [address] 75215- 2288 Jul, Diabetes E11.9 and Gastroparesis K31.84 [place] [address] 84835- 2417 Jun, [place] [id number] [place] [address] 36809- 6804 Jun, Back pain M54.9 [place] [address] 63176- 1080 14 Jun, 2016 Neuropathy G62.9 [facility] [address] [id number] 02 Jun, 2016 Encounter for dental examination Z01.20 [place] [id number] [place] [address] 06582- 5932 Jun, Gastroparesis 536.3 and Anorexia R63.0 [place] [id number] [place] [address] 93468- 4181 May, Other dorsalgia M54.89 [place] [id number] [place] [address] 53365- 5373 May, Periumbilical abdominal pain R10.33 ; Weight loss R63.4 and Gastroparesis K31.84 [place] [id number] [place] [address] 71165- 0425 May, Back pain M54.9 [place] [id number] [place] [address] 60221- 9616 Apr, [address]63.[address] [facility] [id number] [place] [address] 21976 2546 Apr, Anorexia R63.0 [facility] [id number] [place] [address] 71358 2546 16 Apr, [address] [facility] [id number] [place] [address] 75755 2546 15 Apr, [address] [facility] [id number] [place] [address] 55921 2546 Apr, [facility] [id number] [place] [address] 08880 2546 Apr, Bronchitis J40 and Neuropathy G62.9 [facility] [id number] [place] [address] 74921 2546 Apr, Neuropathy G62.9 [facility] [id number] [place] [address] 48568 2546 05 Apr, 2016 [facility] [id number] [place] [address] 38429 2544 Apr, Back pain M54.9 [facility] [id number] [place] [address] 72253 2546 Mar, Type 2 diabetes mellitus with diabetic autonomic (poly) neuropathy E11.43 [facility] [id number] [place] [address] 25296 2546 Mar, Type 2 diabetes mellitus without complications E11.9 [facility] [id number] [place] [address] 29712- 3596 Mar, Neuropathy G62.9 [facility] [id number] [place] [address] 35567 2546 Mar, [facility] [id number] [place] [address] 24026- 9356 Mar, Breast cancer screening Z12.39 [facility] [id number] [place] [address] 32422- 7101 Mar, Other dorsalgia M54.89 [facility] [address] 46269- 1377 Feb, [facility] [address] 77055- 0823 30 Jan, 2016 Neuropathy G62.9 ; Type 2 diabetes mellitus with diabetic autonomic (poly)neuropathy E11.43 ; Uncomplicated asthma, unspecified asthma severity J45.909 and Encounter for immunization Z23 [place] [address] 93769- 7993 Jan, [place] [address] 71509- 2166 Jan, [place] [address] 50074- 1344 Dec, [facility] [address] 47286- 0021 Dec, [place] [address] 40327- 4045 Nov, [place] [address] 98152- 5039 Nov, Back pain M54.9 [place] [address] 37404- 5673 Nov, Neuropathy G62.9 ; Mixed hyperlipidemia E78.2 ; Type 2 diabetes mellitus with diabetic autonomic (poly)neuropathy E11.43 and residential current use of insulin Z79.4 [place] [address] 06998- 9465 Oct, [place] [address] 84810- 3007 Oct, Other dorsalgia M54.89 [facility] [address] 60622- 5696 September, Primary insomnia F51.01 [facility] [id number] [place] [address] September, [facility] [id number] [place] [address] 30976- 7978 Aug, Other dorsalgia M54.89 [facility] [address] [id number] [place] [address] 18047- 2683 Jul, [facility] [id number] [place] [address] 79353- 9054 Jul, Other dorsalgia M54.89 [facility] [id number] [place] [address] 56411- 0948 Jul, Diabetes E11.9 ; Back pain M54.9 ; Neuropathy G62.[address] [facility] [address] [id number] [place] [address] 15815- 1588 Jun, [facility] [id number] [place] [address] 76066- 5008 Jun, Other dorsalgia M54.89 [facility] [id number] [place] [address] 14946- 6842 May, [facility] [id number] [place] [address] 46809- 4877 May, Radicular leg pain M54.10 and Other dorsalgia M54.89 [facility] [id number] [place] [address] 20556- 8540 Apr, [facility] [id number] [place] [address] 78050- 2135 Mar, [facility] [id number] [place] [address] 82221- 9339 Mar, [facility] [id number] [place] [address] 33489- 5752 Mar, Radicular leg pain M54.10 [facility] [id number] [address] Feb, [facility] [id number] [address] Feb, [facility] [id number] [address] Feb, [facility] [id number] [place] [address] [id number]- 0179 Jan, [facility] [id number] [place] [address] 57138- 4728 Jan, IBS (irritable bowel syndrome) 564.1 [facility] [id number] [place] [address] 36209- 1165 Jan, [facility] [id number] [place] [address] 28646- 4456 Jan, [facility] [id number] [address] Jan, Diabetes mellitus without mention of complication, type II or unspecified type, not stated as uncontrolled 250.00 ; Gastroparesis 536.[address] [facility] [id number] [address] Jan, [facility] [id number] [address] Jan, [facility] [id number], [place] [address] Dec, [facility] [id number] [place] [address] 425130- 8660 Dec, [facility] [address] [id number] [address] Dec, [facility] [id number] [place] [address] Dec, Back pain 724.[address] [facility] [id number], [place] [address] Nov, [facility] [id number] [id number] Nov, Dental examination V72.2 [facility] [address], [place] [address] Nov, [facility] [id number] [place] [address] Nov, [facility] [id number] [place] [address] Nov, Depressive disorder, not elsewhere classified 311 and No condition on [place] II V71.09 [facility] [id number] [place] [address] Nov, Diabetes 250.00 and Symptomatic menopausal or female climacteric states 627.2 [facility] [address], [place] [address] Oct, [facility] [address], [place] [address] Oct, Lumbar strain 847.2 [facility] [id number], [place] [address] Oct, Gastroparesis 536.3 and Unspecified myalgia and myositis 729.1 [facility] [id number], [place] [address] Aug, [facility] [id number] [address] Aug, [facility] [id number] [address] Jul, [facility] [id number], [place] [address] Jul, [facility] [place] [facility] [address] [id number] [place] [address] Jul, [facility] [place] [facility] [address] [id number] [place] [address] Jul, [facility] [place] [facility] [address] [id number] [place] [address] Jul, [facility] [place] [facility] [address] [id number] [place] [address] Jun, [facility] [place] [facility] [address] [id number] [place] [address] Jun, [facility] [place] [facility] [address] [id number] [place] [address] Jun, [facility] [place] [facility] [address] [id number] [place] [address] May, [facility] [place] [facility] [address] [id number] [place] [address] May, [facility] [place] [facility] [address] [id number] [place] [address] Mar, [facility] [place] [facility] [address] [id number] [place] [address] Mar, [facility] [place] [facility] [address] [id number] [place] [address] Mar, [facility] [place] [facility] [address] [id number] [address] Mar, [facility] [place] [facility] [address] [id number] [place] [address] 47[address] Mar, [facility] [place] [facility] [address] [id number] [place] [address] Mar, [facility] [place] [facility] [address] [id number] [place] [address] Feb, [facility] [place] [facility] [address] [id number], [place] [address] Feb, [facility] [address] [id number] [place] [address] Nov, [facility] [address] [id number] [place] [address] Nov, [facility] [address] [id number] [place] [address]- [address]93 Nov, [facility] [address] [id number] [place] [address] Oct, [facility] [address] [id number] [place] [address] September, [facility] [address] [id number] [place] [address] Aug, [facility] [address] [id number] [place] [address]- 2012 Aug, [facility] [address] [id number] [place] [address] Aug, [facility] [address] [id number] [place] [address]- [address] Aug, [facility] [address] [id number] [place] [address]- [address] Aug, [facility] [address] [id number] [place] [address]- 2746 Aug, [facility] [address] [id number], [place] [address] Aug, [facility] [address] [id number] [place] [address]- 1795 Aug, [facility] [place] [facility] [address] [id number] [place] [address] Jul, [facility] [address] [id number] [place] [address] Jul, [facility] [id number], [place] [address] [address], [address] [facility] [id number], [place] [address] Jun, [facility] [address] [facility] [id number], [place] [address] Jun, [facility] [id number], [place] [address] [address], [address] [facility] [address] [facility] [id number], [place] [address] Jun, [facility] [id number] [address] Jun, [facility] [address] [address] Jun, [facility] [address] [address] May, [facility] [address] [address] May, [facility] [address] [address] May, [facility] [address] [address] May, [facility] [address] [address] Mar, [facility] [id number], [place] [address] Mar, [facility] [address] [address] Jan, IMMUNIZATIONS No Known Immunizations SOCIAL HISTORY [...] 03/05/17 Hospitalization History hospital stay at [facility] for stomach issues 2016
--- OUTSIDE RECORDS SUMMARY | 2018-01-27 20:28 | XMS REPORT ---
Author Author HORACE HIGGINS [facility] Address [address] [place] [address] Care Team Providers Care Financial Analysis Manager Name Role Phone HORACE HIGGINS Unavailable PROBLEMS Type Condition ICD9-CM Code YEW83-MD Code Onset Dates Condition Status SNOMED Code Problem Weight loss R63.4 Active 643133337 Problem Primary insomnia F51.01 Active 3647656 Problem History of colon polyps Z86.010 Active 644466465 Problem Annual physical exam Z00.00 Active 571953255 Problem Migraine without aura and without status migrainosus, not intractable G43.009 Active 501192423 Problem Reactive depression F32.9 Active 51096806 Problem Asthma exacerbation J45.901 Active 168163632 Problem PTSD (post-traumatic stress disorder) F43.10 Active 78434711 Problem Diabetic polyneuropathy associated with type 2 diabetes mellitus E11.42 Active 05474527 Problem Neuropathy G62.9 Active 895576832 Problem Diabetes E11.9 Active 13401364 Problem Low TSH level R94.6 Active 236957922 Problem Back pain M54.9 Active 008053775 Problem Mixed hyperlipidemia E78.2 Active 363059644 Problem Type 2 diabetes mellitus with diabetic autonomic (poly)neuropathy E11.43 Active 99052939 Problem Gastroparesis K31.84 Active 181428906 Problem Uncomplicated asthma, unspecified asthma severity J45.909 Active 828723236 Problem 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 Active 703655504 Problem Anorexia R63.0 Active 72355160 ALLERGIES No Information ENCOUNTERS Encounter Location Date Diagnosis [facility] [address] [address] Oct, [facility] [id number] [address] Oct, [facility] [address] [place] [address] 01440- 0901 Oct, Anorexia R63.0 [place] [id number] [place] [address] 432625- 7004 September, PTSD (post-traumatic stress disorder) F43.10 [place] [address] 61367- 3102 September, Low TSH level R94.6 [place] [address] 73239- 9156 September, Other dorsalgia M54.89 [place] [address] 13851- 9096 September, Annual physical exam Z00.00 and Migraine without aura and without status migrainosus, not intractable G43.009 [place] [address] 91505- 0925 September, Abnormal TSH R94.6 and Dysfunction of left eustachian tube H69.82 [place] [id number] [place] [address] 00906- 7806 Aug, [facility] [address] 91487- 7225 Aug, Anorexia R63.0 [facility] [address] [id number] Aug, Dental examination Z01.20 and Xerostomia K11.7 [facility] [id number] [place] [address] 76974- 9375 Aug, Neuropathy G62.9 [place] [address] 21815- 5957 Aug, [place] [id number]- 8152 Aug, Other dorsalgia M54.89 [place] [address] 14727- 0456 Aug, Type 2 diabetes mellitus with diabetic autonomic (poly) neuropathy E11.43 ; Diabetic polyneuropathy associated with type 2 diabetes mellitus E11.42 ; Bronchitis J40 ; Gastroparesis K31.84 and Reactive depression F32.9 [facility] [address] 52546 2546 Aug, PTSD (post-traumatic stress disorder) F43.10 [facility] [address] 46813 2546 Aug, Other dorsalgia M54.89 and Anorexia R63.0 [facility] [address] 78664 2546 Jul, [facility] [address] 55920- 5486 Jul, Other dorsalgia M54.89 [facility] [address] 65757- 5966 Jul, [facility] [address] 36133 2546 Jul, [facility] [address] 18075- 8637 Jul, PTSD (post-traumatic stress disorder) F43.10 [facility] [id number] [place] [address] 49681- 2706 Jul, [facility] [address] 13428 2546 Jul, [facility] [id number] [place] [address] 90127 2546 Jul, [facility] [address] 30167 2546 Jul, Anorexia R63.0 [facility] [id number] [place] [address] 74313- 0446 Jun, [facility] [address] [id number]- 2546 Jun, Vaginal discharge N89.8 ; Visit for gynecologic examination Z01.419 and Pelvic pressure in female R10.2 [facility] [id number] [place] [address] 29649- 7806 Jun, [facility] [id number] [place] [address] 88538- 9156 Jun, Other dorsalgia M54.89 [facility] [address] 64658- 1928 Jun, [facility] [address] 75505- 4256 Jun, [facility] [address] 15472- 4244 Jun, [facility] [address] 40517- 2352 May, Back pain M54.9 [facility] [id number] [place] [address] 96097- 2551 May, Anorexia R63.0 [facility] [address] 15977- 5309 May, Other dorsalgia M54.89 [facility] [id number] [place] [address] 12820- 4299 May, [facility] [id number] [place] [address] 93573- 9122 May, Bronchitis J40 [facility] [id number] [place] [address] 48724- 6836 May, Type 2 diabetes mellitus with diabetic autonomic (poly) neuropathy E11.43 ; group home current use of insulin Z79.4 ; Back pain M54.9 and Neuropathy G62.9 [facility] [id number] [place] [address] 36559- 5632 May, Left breast mass N63.20 [facility] [address] [place] [address] 99799- 6365 May, [facility] [id number] [place] [address] 52305- 1836 Apr, Other dorsalgia M54.89 [facility] [id number] [place] [address] 47533 2546 Apr, Anorexia R63.0 [facility] [id number] [place] [address] 84426 2546 Apr, Anorexia R63.0 [facility] [id number] [place] [address] 39535- 6431 Apr, Mass of left breast N63.20 [facility] [id number] [place] [address] 67899- 0078 Apr, [facility] [address] 70705- 4849 Apr, [facility] [id number] [place] [address] 53551- 2943 Apr, Diarrhea of presumed infectious origin A09 [facility] [id number] [place] [address] 92087- 5585 Apr, Encounter for immunization Z23 [facility] [id number] [place] [address] 91039- 7176 Apr, [facility] [id number] [place] [address] 19386- 4507 Mar, Other dorsalgia M54.89 [facility] [id number] [place] [address] 79770 2546 Mar, [facility] [id number] [place] [address] 43730 2544 Mar, [facility] [id number] [place] [address] 52834- 5576 Mar, Anorexia R63.0 [facility] [id number] [place] [address] 52641- 2330 Mar, [facility] [address] 25649- 8044 Mar, Other dorsalgia M54.89 [facility] [address] 95371- 1410 Mar, [facility] [address] 34245- 8212 Mar, Encounter for immunization Z23 [facility] [address] 22951- 5057 Feb, Anorexia R63.0 [facility] [address] 22796- 5038 Feb, Diabetes E11.9 [facility] [address] 48742- 8884 Feb, Back pain M54.9 and Diabetes E11.9 [facility] [address] 13757- 5373 Feb, Diabetes E11.9 [facility] [address] 99535- 2334 Feb, Neuropathy G62.9 [facility] [id number] [place] [address] 87144- 9219 Feb, Encounter for immunization Z23 ; Epigastric pain R10.13 ; Weight loss, abnormal R63.4 and Neuropathy G62.9 [facility] [id number] [place] [address] [id number] Feb, [facility] [address] 30823- 0807 Feb, [facility] [id number] [place] [address] 62916- 9006 Feb, Intractable vomiting with nausea, unspecified vomiting type R11.2 [facility] [id number] [place] [address] 16856 -1861 Feb, Chronic nausea R11.0 [facility] [address] 00150- 8743 Feb, Other dorsalgia M54.89 [facility] [id number] [place] [address] 00856- 8726 Jan, [facility] [address] 85411- 3396 Jan, [facility] [address] 73169- 6429 Jan, [facility] [address] 78294- 3855 Jan, [facility] [address] 42307- 1905 Jan, Asthma exacerbation J45.901 ; Bronchitis J40 and Neuropathy G62.9 [facility] [id number] [place] [address] 86016- 7763 Jan, Anorexia R63.0 [facility] [address] 14178- 8036 Jan, Other dorsalgia M54.89 [facility] [id number] [place] [address] 34147- 1108 Dec, [facility] [id number] [place] [address] 43037- 9947 Dec, [facility] [id number] [place] [address] 07806- 2913 Dec, Anorexia R63.0 [facility] [id number] [place] [address] 69359- 5672 Dec, Primary insomnia F51.01 [facility] [id number] [place] [address] 28442- 1471 Dec, Other dorsalgia M54.89 [facility] [address] [address]- 0695 Dec, [facility] [id number] [place] [address] 70417- 7435 Nov, [facility] [id number] [place] [address] 82056- 4550 Nov, [facility] [id number] [place] [address] 82130- 7425 Nov, [facility] [id number] [place] [address] 54561- 9519 Nov, History of colon polyps Z86.010 [facility] [id number] [place] [address] 30445- 1289 Nov, Weight loss R63.4 ; Nausea and vomiting, intractability of vomiting not specified, unspecified vomiting type R11.2 and Abnormal LFTs R79.89 [facility] [id number] [place] [address] 61197- 1495 Nov, [facility] [id number] [place] [address] 46360- 0498 Nov, Neuropathy G62.9 and Pain in right knee M25.561 [facility] [id number] [place] [address] 76704- 5298 Nov, Back pain M54.9 [facility] [id number] [place] [address] 99888- 8372 Nov, [facility] [address] [place] [address] 28002- 9051 Nov, Bronchitis J40 [facility] [id number] [place] [address] 99043- 9018 Nov, Weight loss R63.4 [facility] [id number] [place] [address] 13597- 2725 Oct, Back pain M54.9 [facility] [address], [place] [address]- 7207 16 Oct, 2016 [facility] [id number] [place] [address] 75711- 2278 14 Oct, 2016 Back pain M54.9 [facility] [id number] [place] [address] 95921- 9685 13 Oct, 2016 Type 2 diabetes mellitus without complications E11.9 and Bronchitis J40 [facility] [id number] [place] [address] 17215- 5379 Oct, [facility] [id number] [place] [address] 28941- 5463 Oct, [facility] [id number] [place] [address] 27550- 4803 September, Gastroparesis K31.84 ; Type 2 diabetes mellitus with diabetic autonomic (poly)neuropathy E11.43 and Neuropathy G62.9 [facility] [id number] [place] [address] 09017- 4259 September, Other dorsalgia M54.89 [facility] [id number] [place] [address] 93941- 5567 September, [facility] [id number] [place] [address] 77263- 6153 September, [facility] [id number] [place] [address] 72269- 9812 Aug, Gastroparesis K31.84 and Radicular leg pain M54.10 [facility] [id number] [place] [address] 71262- 4336 Aug, Anorexia R63.0 [facility] [id number] [place] [address] 68305- 2593 Aug, Bronchitis J40 [facility] [id number] [place] [address] 79647- 1377 Aug, Back pain M54.9 [facility] [address] [place] [address] 84281- 3907 Aug, Routine gynecological examination Z01.419 ; Routine screening for STI (sexually transmitted infection) Z11.3 and Yeast infection of the vagina B37.3 [facility] [address] [place] [address] 59915- 3299 Jul, Other dorsalgia M54.89 [place] [address] 63589- 6349 Jul, Diabetes E11.9 and Gastroparesis K31.84 [place] [address] 56551- 6106 Jun, [place] [id number] [place] [address] 99521- 1192 Jun, Back pain M54.9 [place] [address] 02247- 4705 14 Jun, 2016 Neuropathy G62.9 [facility] [address] [id number] 02 Jun, 2016 Encounter for dental examination Z01.20 [place] [id number] [place] [address] 41999- 0373 Jun, Gastroparesis 536.3 and Anorexia R63.0 [place] [id number] [place] [address] 49519- 6802 May, Other dorsalgia M54.89 [place] [id number] [place] [address] 45007- 7351 May, Periumbilical abdominal pain R10.33 ; Weight loss R63.4 and Gastroparesis K31.84 [place] [id number] [place] [address] 85486- 8215 May, Back pain M54.9 [place] [id number] [place] [address] 48889- 3567 Apr, Anorexia R63.0 [facility] [address] [place] [address] 18692 2546 Apr, Anorexia R63.0 [facility] [id number] [place] [address] 04979 2546 16 Apr, 2016 Back pain M54.9 [facility] [id number] [place] [address] 44152 2546 15 Apr, 2016 Back pain M54.9 [facility] [id number] [place] [address] 36815 2546 Apr, [facility] [id number] [place] [address] 32620 2546 Apr, Bronchitis J40 and Neuropathy G62.9 [facility] [id number] [place] [address] 03798 2546 Apr, Neuropathy G62.9 [facility] [id number] [place] [address] 48252 2546 05 Apr, 2016 [facility] [id number] [place] [address] 66513 2547 Apr, Back pain M54.9 [facility] [id number] [place] [address] 78646 2546 Mar, Type 2 diabetes mellitus with diabetic autonomic (poly) neuropathy E11.43 [facility] [id number] [place] [address] 67082 2546 Mar, Type 2 diabetes mellitus without complications E11.9 [facility] [id number] [place] [address] 74294- 7956 Mar, Neuropathy G62.9 [facility] [id number] [place] [address] 99817 2546 Mar, [facility] [address] [place] [address] 45212- 7656 Mar, Breast cancer screening Z12.39 [facility] [id number] [place] [address] 76293- 0463 Mar, Other dorsalgia M54.89 [facility] [address] 04228- 5772 Feb, [facility] [address] 09270- 1236 30 Jan, 2016 Neuropathy G62.9 ; Type 2 diabetes mellitus with diabetic autonomic (poly)neuropathy E11.43 ; Uncomplicated asthma, unspecified asthma severity J45.909 and Encounter for immunization Z23 [place] [address] 28936- 8575 Jan, [place] [address] 00730- 9714 Jan, [place] [address] 28603- 1937 Dec, [facility] [address] 34318- 2728 Dec, [place] [address] 34828- 4758 Nov, [place] [address] 39212- 4057 Nov, Back pain M54.9 [place] [address] 32092- 0908 Nov, Neuropathy G62.9 ; Mixed hyperlipidemia E78.2 ; Type 2 diabetes mellitus with diabetic autonomic (poly)neuropathy E11.43 and group home current use of insulin Z79.4 [place] [address] 01254- 8891 Oct, [place] [address] 13427- 7620 Oct, Other dorsalgia M54.89 [facility] [address] 40395- 9472 September, Primary insomnia F51.01 [facility] [id number] [place] [address] 29022- 0600 September, [facility] [id number] [place] [address] 99805- 6702 Aug, Other dorsalgia M54.89 [facility] [id number] [place] [address] 83395- 3948 Jul, [facility] [id number] [place] [address] 24192- 4718 Jul, Other dorsalgia M54.89 [facility] [id number] [place] [address] 05680- 8507 Jul, Diabetes E11.9 ; Back pain M54.9 ; Neuropathy G62.9 and Gastroparesis K31.84 [facility] [id number] [place] [address] 64064- 9757 Jun, [facility] [id number] [place] [address] 82040- 4802 Jun, Other dorsalgia M54.89 [facility] [id number] [place] [address] 33204- 7339 May, [facility] [id number] [place] [address] 96510- 7384 May, Radicular leg pain M54.10 and Other dorsalgia M54.89 [facility] [id number] [place] [address] 54527- 3764 Apr, [facility] [id number] [place] [address] 33367- 2509 Mar, [facility] [id number] [place] [address] 71586- 8208 Mar, [facility] [id number] [place] [address] 47013- 5514 Mar, Radicular leg pain M54.10 [facility] [address], [place] [address]- 4575 Feb, [facility] [id number] 8326 Feb, [facility] [address], [place] [address]- 9582 Feb, [facility] [id number] [place] [address] 559274- 4002 Jan, [facility] [address] [place] [address] 71543- 3842 Jan, IBS (irritable bowel syndrome) 564.1 [facility] [id number] [place] [address] 43763- 9612 Jan, [facility] [id number] [place] [address] 43135- 5475 Jan, [facility] [address], [place] [address]- 5923 Jan, Diabetes mellitus without mention of complication, type II or unspecified type, not stated as uncontrolled 250.00 ; Gastroparesis 536.3 and Hypoacusis 389.9 [facility] [address] [address]- 8986 Jan, [facility] [address], [place] [address]- 0512 Jan, [facility] [address] [address]- 6956 Dec, [facility] [id number] [place] [address] 322990- 4860 Dec, [facility] [address], [place] [address]- 5494 Dec, [facility] [id number] [place] [address] 51654- 7761 Dec, Back pain 724.5 and Gastroparesis 536.3 [facility] [address] [address]- 1721 Nov, [facility] [id number] [id number] Nov, Dental examination V72.2 [facility] [address], [place] [address]- 5153 Nov, [facility] [id number] [place] [address] 76210- 4497 Nov, [facility] [id number] [place] [address] 30864- 4253 Nov, Depressive disorder, not elsewhere classified 311 and No condition on [place] II V71.09 [facility] [address] [place] [address] 47989- 7220 Nov, Diabetes 250.00 and Symptomatic menopausal or female climacteric states 627.2 [facility] [address], [place] [address]- 0526 Oct, [facility] [address], [place] [address]- 5099 Oct, Lumbar strain 847.2 [facility] [address], [place] [address]- 8975 Oct, Gastroparesis 536.3 and Unspecified myalgia and myositis 729.1 [facility] [address], [place] [address]- 2312 Aug, [facility] [id number], [place] [address] Aug, [facility] [id number], [place] [address] Jul, [facility] [id number], [place] [address] Jul, [facility] [place] [facility] [address] [id number] [place] [address] Jul, [facility] [place] [facility] [address] [id number] [place] [address] Jul, [facility] [place] [facility] [address] [id number] [place] [address] Jul, [facility] [place] [facility] [address] [id number] [place] [address] Jun, [facility] [place] [facility] [address] [id number] [place] [address] Jun, [facility] [place] [facility] [address] [id number] [place] [address] Jun, [facility] [place] [facility] [address] [id number] [place] [address] May, [facility] [place] [facility] [address] [id number] [place] [address] May, [facility] [place] [facility] [address] [id number] [place] [address] Mar, [facility] [place] [facility] [address] [id number] [place] [address] Mar, [facility] [place] [facility] [address] [id number] [place] [address] Mar, [facility] [place] [facility] [address] [id number], [place] [address] Mar, [facility] [place] [facility] [address] [id number] [place] [address] Mar, [facility] [place] [facility] [address] [id number] [place] [address] Mar, [facility] [place] [facility] [address] [id number] [place] [address] Feb, [facility] [place] [facility] [address] [id number], [place] [address] Feb, [facility] [address] [id number] [place] [address] Nov, [facility] [address] [id number] [place] [address] Nov, [facility] [address] [id number] [place] [address] Nov, [facility] [address] [id number] [place] [address] Oct, [facility] [facility] [address] [id number] [place] [address] September, [facility] [address] [id number] [place] [address] Aug, [facility] [address] [id number] [place] [address] Aug, [facility] [address] [id number] [place] [address] Aug, [facility] [address] [id number] [place] [address] Aug, [facility] [address] [id number] [place] [address] Aug, [facility] [address] [id number] [place] [address] Aug, [facility] [address] [id number], [place] [address] Aug, [facility] [address] [id number] [place] [address] Aug, [facility] [place] [facility] [address] [id number] [place] [address] Jul, [facility] [address] [id number] [place] [address] Jul, [facility] [address] [address] 12 Jun, 2012 [facility] [id number] [address] Jun, [facility] [id number], [place] [address] Jun, [facility] [address], [place] [address] 08 Jun, 2012 [facility] [address] [facility] [id number] [address] Jun, [facility] [id number] [address] Jun, [facility] [id number], [place] [address] Jun, [facility] [address], [place] [address] May, [facility] [address], [place] [address] May, [facility] [address], [place] [address] May, [facility] [address], [place] [address] May, [facility] [address], [place] [address] Mar, [facility] [address], [place] [address] Mar, [facility] [id number], [place] [address] Jan, IMMUNIZATIONS No Known Immunizations SOCIAL HISTORY Never Assessed REASON FOR VISIT PLAN OF CARE VITAL SIGNS MEDICATIONS Medication Instructions Dosage Frequency Start Date End Date Duration Status Zolpidem Tartrate 10 mg TAKE ONE TABLET BY MOUTH ONCE DAILY 30 Active RESULTS No Results PROCEDURES [...] vomitting-[facility] 03/05/17 Hospitalization History hospital stay at [facility] for stomach issues 2016
--- OUTSIDE RECORDS SUMMARY | 2018-01-27 20:29 | XMS REPORT ---
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 Name Role Phone HORACE HIGGINS Unavailable PROBLEMS Type Condition ICD9-CM Code GLH09-ZE Code Onset Dates Condition Status SNOMED Code Problem Weight loss R63.4 Active 798218390 Problem Primary insomnia F51.01 Active 9814164 Problem History of colon polyps Z86.010 Active 146958857 Problem Annual physical exam Z00.00 Active 095691182 Problem Migraine without aura and without status migrainosus, not intractable G43.009 Active 221209938 Problem Reactive depression F32.9 Active 26322229 Problem Asthma exacerbation J45.901 Active 475420372 Problem PTSD (post-traumatic stress disorder) F43.10 Active 24064926 Problem Diabetic polyneuropathy associated with type 2 diabetes mellitus E11.42 Active 86508013 Problem Neuropathy G62.9 Active 181831893 Problem Diabetes E11.9 Active 51371645 Problem Low TSH level R94.6 Active 955181312 Problem Back pain M54.9 Active 803026170 Problem Mixed hyperlipidemia E78.2 Active 252640656 Problem Type 2 diabetes mellitus with diabetic autonomic (poly)neuropathy E11.43 Active 22610356 Problem Gastroparesis K31.84 Active 488061452 Problem Uncomplicated asthma, unspecified asthma severity J45.909 Active 732904037 Problem 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 [address] [address] Oct, [facility] [id number] [address] Oct, [facility] [id number] [place] [address] 49650- 5657 Oct, Anorexia R63.0 [place] [id number] [place] [address] 496740- 5606 September, PTSD (post-traumatic stress disorder) F43.10 [facility] [address] 08725- 2979 September, Low TSH level R94.6 [place] [facility] [address] 09735- 1687 September, Other dorsalgia M54.89 [place] [address] 70368- 9367 September, Annual physical exam Z00.00 and Migraine without aura and without status migrainosus, not intractable G43.009 [place] [address] 04915- 8854 September, Abnormal TSH R94.6 and Dysfunction of left eustachian tube H69.82 [place] [id number] [place] [address] 78590- 9383 Aug, [facility] [address] 99476- 1388 Aug, Anorexia R63.0 [facility] [address] [id number] Aug, Dental examination Z01.[address] [facility] [id number] [place] [address] 31114- 6440 Aug, Neuropathy G62.9 [place] [address] 06190- 8638 Aug, [place] [address] [address]31225- 2253 Aug, Other dorsalgia M54.89 [place] [address] 71543- 0250 Aug, Type 2 diabetes mellitus with diabetic autonomic (poly) neuropathy E11.43 ; Diabetic polyneuropathy associated with type 2 diabetes mellitus E11.42 ; Bronchitis J40 ; Gastroparesis K31.84 and Reactive depression F32.9 [facility] [address] 30097 2546 Aug, PTSD (post-traumatic stress disorder) F43.10 [facility] [address] 48440 2546 Aug, Other dorsalgia M54.[address] [facility] [address] 111[address] 2546 Jul, [facility] [address] 36920- 5746 Jul, Other dorsalgia M54.89 [facility] [address] 96445- 5186 Jul, [facility] [address] [address] 2546 Jul, [facility] [address] 46616- 3284 Jul, PTSD (post-traumatic stress disorder) F43.10 [facility] [id number] [place] [address] 17020- 0836 Jul, [facility] [address] 412[address] 2546 Jul, [facility] [id number] [place] [address] 61146 2546 Jul, [facility] [address] 94037 2546 Jul, Anorexia R63.0 [facility] [id number] [place] [address] 46108- 8706 Jun, [facility] [address] 60531762- 2546 Jun, Vaginal discharge N89.8 ; Visit for gynecologic examination Z01.419 and Pelvic pressure in female R10.2 [facility] [id number] [place] [address] 53078- 0156 Jun, [facility] [id number] [place] [address] 24857- 6730 Jun, Other dorsalgia M54.89 [facility] [address] 26236- 2259 Jun, [facility] [address] 69846- 0226 Jun, [facility] [address] 06807- 3001 Jun, [facility] [address] 38662- 1676 May, Back pain M54.9 [facility] [id number] [place] [address] 80443- 1023 May, [address]ore[address] R63.0 [facility] [address] 97641- 0808 May, Other dorsalgia M54.89 [facility] [id number] [place] [address] 85617- 6621 May, [facility] [id number] [place] [address] 38430- 7345 May, Bronchitis J40 [facility] [id number] [place] [address] 17737- 1586 May, Type 2 diabetes mellitus with diabetic autonomic (poly) neuropathy E11.43 ; MCC current use of insulin Z79.4 ; Back pain M54.[address] [facility] [id number] [place] [address] 68644- 9271 May, Left breast mass N63.20 [facility] [id number] [place] [address] 49857- 5083 May, [facility] [id number] [place] [address] 25610- 2646 Apr, Other dorsalgia M54.89 [facility] [id number] [place] [address] 36803 2546 Apr, [address]ore[address] R63.0 [facility] [id number] [place] [address] 18334 2546 Apr, [address]ore[address] R63.[address] [facility] [id number] [place] [address] 06927- 5278 Apr, Mass of left breast N63.20 [facility] [id number] [place] [address] 06908- 7693 Apr, [facility] [address] 36288- 0941 Apr, [facility] [id number] [place] [address] 12878- 2711 Apr, Diarrhea of presumed infectious origin A09 [facility] [id number] [place] [address] 58786- 3714 Apr, Encounter for immunization Z23 [facility] [id number] [place] [address] 05550- 6157 Apr, [facility] [id number] [place] [address] 52262- 0887 Mar, Other dorsalgia M54.89 [facility] [id number] [place] [address] 89305 2546 Mar, [facility] [id number] [place] [address] 32377 2543 Mar, [facility] [id number] [place] [address] 60807- 0046 Mar, Anorexia R63.0 [facility] [id number] [place] [address] 38857- 3654 Mar, [facility] [address] 18879- 7908 Mar, Other dorsalgia M54.89 [facility] [address] 92193- 7880 Mar, [facility] [address] 32472- 3632 Mar, Encounter for immunization Z23 [facility] [address] 60137- 3916 Feb, Anorexia R63.0 [facility] [address] 69195- 8088 Feb, Diabetes E11.9 [facility] [address] 81964- 6310 Feb, Back pain M54.[address] [facility] [address] 67927- 6437 Feb, Diabetes E11.9 [facility] [address] 40787- 6084 Feb, Neuropathy G62.9 [facility] [id number] [place] [address] 92814- 1941 Feb, Encounter for immunization Z23 ; Epigastric pain R10.13 ; Weight loss, abnormal R63.4 and Neuropathy G62.9 [facility] [id number] [place] [address] [id number] Feb, [facility] [address] 82630- 2066 Feb, [facility] [id number] [place] [address] 77407- 7261 Feb, Intractable vomiting with nausea, unspecified vomiting type R11.2 [facility] [id number] [place] [address] 09291 -4882 Feb, Chronic nausea R11.0 [facility] [address] 11549- 9770 Feb, Other dorsalgia M54.89 [facility] [id number] [place] [address] 50389- 6175 Jan, [facility] [address] 76901- 1998 Jan, [facility] [address] 36874- 5458 Jan, [facility] [address] 26723- 7827 Jan, [facility] [address] 40121- 5064 Jan, Asthma exacerbation J45.901 ; Bronchitis J40 [address] G62.9 [facility] [id number] [place] [address] 45844- 0275 Jan, Anorexia R63.0 [facility] [address] 80673- 3133 Jan, Other dorsalgia M54.89 [facility] [id number] [place] [address] 86818- 7507 Dec, [facility] [id number] [place] [address] 93085- 8209 Dec, [facility] [id number] [place] [address] 32684- 4075 Dec, Anorexia R63.0 [facility] [id number] [place] [address] 64867- 0682 Dec, Primary insomnia F51.01 [facility] [id number] [place] [address] 56191- 7214 Dec, Other dorsalgia M54.89 [facility] [address] [address]- 9607 Dec, [facility] [id number] [place] [address] 67405- 8442 Nov, [facility] [id number] [place] [address] 11168- 2084 Nov, [facility] [id number] [place] [address] 99783- 5794 Nov, [facility] [id number] [place] [address] 74090- 1194 Nov, History of colon polyps Z86.010 [facility] [id number] [place] [address] 00880- 9865 Nov, Weight loss R63.4 ; Nausea and vomiting, intractability of vomiting not specified, unspecified vomiting type R11.2 [address]89 [facility] [id number] [place] [address] 40534- 6252 Nov, [facility] [id number] [place] [address] 74276- 2513 Nov, Neuropathy G62.9 and Pain in right knee M25.561 [facility] [id number] [place] [address] 04491- 5922 Nov, Back pain M54.9 [facility] [id number] [place] [address] 96357- 9281 Nov, [facility] [id number] [place] [address] 01294- 1022 Nov, Bronchitis J40 [facility] [id number] [place] [address] 81405- 2159 Nov, Weight loss R63.4 [facility] [id number] [place] [address] 80920- 9604 Oct, Back pain M54.9 [facility] [address] [address]- 9468 16 Oct, 2016 [facility] [id number] [place] [address] 17335- 2620 14 Oct, [address] [facility] [id number] [place] [address] 84275- 0353 13 Oct, 2016 Type 2 diabetes mellitus without complications E11.[address] [facility] [id number] [place] [address] 02611- 0575 Oct, [facility] [id number] [place] [address] 79394- 2629 Oct, [facility] [id number] [place] [address] 72985- 0860 September, Gastroparesis K31.84 ; Type 2 diabetes mellitus with diabetic autonomic (poly)neuropathy E11.[address] [facility] [id number] [place] [address] 61292- 0029 September, Other dorsalgia M54.89 [facility] [id number] [place] [address] 92187- 0565 September, [facility] [id number] [place] [address] 07978- 1968 September, [facility] [id number] [place] [address] 75384- 1682 Aug, Gastroparesis K31.84 and Radicular leg pain M54.10 [facility] [id number] [place] [address] 04208- 5350 Aug, Anore[address] R63.0 [facility] [id number] [place] [address] 65331- 1109 Aug, Bronchitis J40 [facility] [id number] [place] [address] 20287- 2589 Aug, Back pain M54.9 [facility] [id number] [place] [address] 89399- 1587 Aug, Routine gynecological examination Z01.419 ; Routine screening for STI (sexually transmitted infection) Z11.3 and Yeast infection of the vagina B37.3 [facility] [id number] [place] [address] 69372- 1629 Jul, Other dorsalgia M54.89 [place] [address] 02987- 6536 Jul, Diabetes E11.9 and Gastroparesis K31.84 [place] [address] 25720- 2330 Jun, [place] [id number] [place] [address] 45467- 5728 Jun, Back pain M54.9 [place] [address] 44948- 4247 14 Jun, 2016 Neuropathy G62.9 [facility] [address] [id number] 02 Jun, 2016 Encounter for dental examination Z01.20 [place] [id number] [place] [address] 31374- 7296 Jun, Gastroparesis 536.3 and Anorexia R63.0 [place] [id number] [place] [address] 69358- 8133 May, Other dorsalgia M54.89 [place] [id number] [place] [address] 96368- 8118 May, Periumbilical abdominal pain R10.33 ; Weight loss R63.4 and Gastroparesis K31.84 [place] [id number] [place] [address] 46452- 1524 May, Back pain M54.9 [place] [id number] [place] [address] 09331- 0653 Apr, Anore[address] R63.0 [facility] [id number] [place] [address] 84299 2546 Apr, Anorexia R63.0 [facility] [id number] [place] [address] 98661 2546 16 Apr, [address] [facility] [id number] [place] [address] 12191 2546 15 Apr, [address] [facility] [id number] [place] [address] 54391 2546 Apr, [facility] [id number] [place] [address] 75088 2546 Apr, Bronchitis J40 and Ne[address] G62.9 [facility] [id number] [place] [address] 98806 2546 Apr, Neuropathy G62.9 [facility] [id number] [place] [address] 48941 2546 05 Apr, 2016 [facility] [id number] [place] [address] 34021 2549 Apr, Back pain M54.9 [facility] [id number] [place] [address] 37990 2546 Mar, Type 2 diabetes mellitus with diabetic autonomic (poly) neuropathy E11.43 [facility] [id number] [place] [address] 95562 2546 Mar, Type 2 diabetes mellitus without complications E11.9 [facility] [id number] [place] [address] 63955- 4266 Mar, Neuropathy G62.9 [facility] [id number] [place] [address] 33185 2546 Mar, [facility] [id number] [place] [address] 44232- 9506 Mar, Breast cancer screening Z12.39 [facility] [id number] [place] [address] 29718- 8952 Mar, Other dorsalgia M54.89 [facility] [address] 87224- 9881 Feb, [facility] [address] 02466- 2052 30 Jan, 2016 Neuropathy G62.9 ; Type 2 diabetes mellitus with diabetic autonomic (poly)neuropathy E11.43 ; Uncomplicated asthma, unspecified asthma severity J45.909 and Encounter for immunization Z23 [place] [address] 59976- 1438 Jan, [place] [address] 43355- 5600 Jan, [place] [address] 75431- 0586 Dec, [facility] [address] 04803- 6691 Dec, [place] [address] 00063- 4528 Nov, [place] [address] 67688- 5028 Nov, Back pain M54.9 [place] [address] 36871- 7057 Nov, Neuropathy G62.9 ; Mixed hyperlipidemia E78.2 ; Type 2 diabetes mellitus with diabetic autonomic (poly)neuropathy E11.43 and [facility] current use of insulin Z79.4 [place] [address] 81755- 7258 Oct, [place] [address] 66764- 2508 Oct, Other dorsalgia M54.89 [facility] [address] 16639- 9452 September, Primary insomnia F51.01 [facility] [id number] [place] [address] 19087- 8855 September, [facility] [id number] [place] [address] 57008- 9534 Aug, Other dorsalgia M54.89 [facility] [id number] [place] [address] 10276- 5443 Jul, [facility] [id number] [place] [address] 57958- 4222 Jul, Other dorsalgia M54.89 [facility] [id number] [place] [address] 06771- 6493 Jul, Diabetes E11.9 ; Back pain M54.9 ; Neuropathy G62.[address] [facility] [id number] [place] [address] 36404- 3610 Jun, [facility] [id number] [place] [address] 35385- 0868 Jun, Other dorsalgia M54.89 [facility] [id number] [place] [address] 85569- 8501 May, [facility] [id number] [place] [address] 17066- 4152 May, Radicular leg pain M54.10 and Other dorsalgia M54.89 [facility] [id number] [place] [address] 11697- 4155 Apr, [facility] [id number] [place] [address] 11323- 6867 Mar, [facility] [id number] [place] [address] 10216- 9351 Mar, [facility] [id number] [place] [address] 53347- 6904 Mar, Radicular leg pain M54.10 [facility] [id number] [place] [address] Feb, [facility] [id number] [address] Feb, [facility] [id number] [address] Feb, [facility] [id number] [place] [address] 175438- 0578 Jan, [facility] [id number] [place] [address] 27489- 4287 Jan, IBS (irritable bowel syndrome) 564.1 [facility] [id number] [place] [address] 18394- 7043 Jan, [facility] [id number] [place] [address] 18051- 7724 Jan, [facility] [address] [address] Jan, Diabetes mellitus without mention of complication, type II or unspecified type, not stated as uncontrolled 250.00 ; Gastroparesis 536.[address] [facility] [id number] [address] Jan, [facility] [id number] [address] Jan, [facility] [id number] [address] 4[address] Dec, [facility] [id number] [place] [address] 019746- 6254 Dec, [facility] [id number] [address] Dec, [facility] [id number] [place] [address] 17958- 4885 Dec, Back pain 724.[address] [facility] [id number] [address] Nov, [facility] [id number] [place] [id number] Nov, Dental examination V72.2 [facility] [id number] [address] Nov, [facility] [id number] [place] [address] 63739- 5689 Nov, [facility] [id number] [place] [address] 70975- 7991 Nov, Depressive disorder, not elsewhere classified 311 and No condition on [place] II V71.09 [facility] [id number] [place] [address] 62209- 1419 Nov, Diabetes 250.00 and Symptomatic menopausal or female climacteric states 627.2 [facility] [id number] [address] Oct, [facility] [id number] [address] 6064 Oct, Lumbar strain 847.2 [facility] [id number] [address] 9175 Oct, Gastroparesis 536.3 and Unspecified myalgia and [address] [facility] [address] [place] [address] Aug, [facility] [id number] [address] Aug, [facility] [id number] [address] Jul, [facility] [id number] [place] [address] Jul, [facility] [place] [facility] [address] [id number] [place] [address] Jul, [facility] [place] [facility] [address] [id number] [place] [address] Jul, [facility] [place] [facility] [address] [id number] [place] [address] Jul, [facility] [place] [facility] [address] [id number] [place] [address] Jun, [facility] [place] [facility] [address] [id number] [place] [address] Jun, [facility] [place] [facility] [address] [id number] [place] [address] Jun, [facility] [place] [facility] [address] [id number] [place] [address] May, [facility] [place] [facility] [address] [id number] [place] [address] May, [facility] [place] [facility] [address] [id number] [place] [address] Mar, [facility] [place] [facility] [address] [id number] [place] [address] Mar, [facility] [place] [facility] [address] [id number] [place] [address] Mar, [facility] [place] [facility] [address] [id number] [place] [address] Mar, [facility] [place] [facility] [address] [id number] [place] [address] Mar, [facility] [place] [facility] [address] [id number] [place] [address]- [address]199 Mar, [facility] [place] [facility] [address] [id number] [place] [address] Feb, [facility] [place] [facility] [address] [id number] [place] [address] Feb, [facility] [address] [id number] [place] [address] Nov, [facility] [address] [id number] [place] [address] Nov, [facility] [address] [id number] [place] [address] Nov, [facility] [address] [id number] [place] [address] Oct, [facility] [address] [id number] [place] [address] September, [facility] [address] [id number] [place] [address]36 Aug, [facility] [address] [id number] [place] [address]- [address] Aug, [facility] [address] [id number] [place] [address] Aug, [facility] [address] [id number] [place] [address] Aug, [facility] [address] [id number] [place] [address] Aug, [facility] [address] [id number] [place] [address]- [address] Aug, [facility] [address] [id number] [place] [address] Aug, [facility] [address] [id number] [place] [address] Aug, [facility] [place] [facility] [address] [id number] [place] [address] Jul, [facility] [address] [id number] [place] [address] Jul, [facility] [address] [address] 12 Jun, 2012 [facility] [id number] [place] Jun, [address] [facility] [address] [place] [address] Jun, [address] [facility] [address] [place] [address] [address], [address] [facility] [address] [place] Jun, [facility] [address] [place] Jun, [facility] [address] [place] Jun, [facility] [address] [address] May, [facility] [address] [address]73 May, [facility] [address] [address] May, [facility] [id number] [address] May, [facility] [address] [id number] [address] Mar, [facility] [address] [id number] [place] [address] Mar, [facility] [id number] [place] Jan, IMMUNIZATIONS Vaccine Route Administration Date Status ZOSTER (ZOSTAVAX) SC Subcutaneous May 05, 2017 Administered SOCIAL HISTORY Never Assessed REASON FOR VISIT Shingles Vaccine- Tanna Hess RN PLAN OF CARE VITAL SIGNS MEDICATIONS Unknown Medications RESULTS No Results PROCEDURES Procedure Date Ordered Result Body Site ZOSTER (ZOSTAVAX) May 05, 2017 SINGLE IMMUNIZATION ADMIN May 05, 2017 INSTRUCTIONS MEDICATIONS ADMINISTERED No Known [...] vomitting-[facility] 03/05/17 Hospitalization History hospital stay at [facility] for stomach issues 2016
--- OUTSIDE RECORDS SUMMARY | 2018-01-27 20:29 | XMS REPORT ---
Author Author HORACE HIGGINS [facility] Address [address] [place] [address] Care Team Providers Care Data Entry Supervisor Name Role Phone HORACE HIGGINS Unavailable PROBLEMS Type Condition ICD9-CM Code PEM39-TX Code Onset Dates Condition Status SNOMED Code Problem Uncomplicated asthma, unspecified asthma severity J45.909 Active 216490566 Problem Weight loss R63.4 Active 963773320 Problem Anorexia R63.0 Active 33166438 Problem PTSD (post-traumatic stress disorder) F43.10 Active 32538638 Problem Diabetic polyneuropathy associated with type 2 diabetes mellitus E11.42 Active 59316005 Problem Primary insomnia F51.01 Active 5333752 Problem History of colon polyps Z86.010 Active 317007670 Problem Reactive depression F32.9 Active 23287975 Problem Asthma exacerbation J45.901 Active 076688815 Problem Depressive disorder, not elsewhere classified 311 Active 98345573 Problem Back pain M54.9 Active 604020174 Problem Gastroparesis K31.84 Active 070392162 Problem Mixed hyperlipidemia E78.2 Active 821188164 Problem Neuropathy G62.9 Active 026665450 Problem Type 2 diabetes mellitus with diabetic autonomic (poly)neuropathy E11.43 Active 36860973 Problem Diabetes E11.9 Active 27420746 Problem detention current use of insulin Z79.4 Active 936062826 ALLERGIES No Information ENCOUNTERS Encounter Location Date Diagnosis [facility] [address] [facility] [id number] [address] September, [facility] [id number] [address] September, [facility] [address] [address] September, [facility] [address] [id number] [address] September, Abnormal TSH R94.6 and Dysfunction of left eustachian tube H69.82 [facility] [address] [address]- [address]201 Aug, [facility] [address] 8[address]34- 3564 Aug, Anorexia R63.0 [facility] [address] [id number] Aug, Dental examination Z01.20 and Xerostomia K11.7 [facility] [address] 0[address]17- 2564 Aug, Neuropathy G62.9 [facility] [address] 01111- 5556 Aug, [place] [address] [address]- 8689 Aug, Other dorsalgia M54.89 [place] [address] 32723- 9176 Aug, Type 2 diabetes mellitus with diabetic autonomic (poly) neuropathy E11.43 ; Diabetic polyneuropathy associated with type 2 diabetes mellitus E11.42 ; Bronchitis J40 ; Gastroparesis K31.84 and Reactive depression F32.9 [place] [address] 13692- 6030 Aug, PTSD (post-traumatic stress disorder) F43.10 [facility] [address] [id number] [place] [address] 26585- 8678 Aug, Other dorsalgia M54.89 and Anorexia R63.0 [facility] [address] 70916- 5111 Jul, [facility] [address] 51850- 7487 Jul, Other dorsalgia M54.89 [place] [address] [place] [address] 8[address] Jul, [facility] [id number] [place] [address] 92993- 2654 Jul, [facility] [id number] [place] [address] 55662- 2157 Jul, PTSD (post-traumatic stress disorder) F43.10 [facility] [id number] [place] [address] 04240- 5949 Jul, [facility] [id number] [place] [address] 08159- 5854 Jul, [facility] [id number] [place] [address] 46520- 6976 Jul, [facility] [id number] [place] [address] 83492- 5029 Jul, Anorexia R63.0 [facility] [id number] [place] [address] 11775- 7849 Jun, [facility] [id number] [place] [address] 49246- 9180 Jun, Vaginal discharge N89.8 ; Visit for gynecologic examination Z01.419 and Pelvic pressure in female R10.2 [facility] [id number] [place] [address] 73854- 6810 Jun, [facility] [id number] [place] [address] 73197- 3054 Jun, Other dorsalgia M54.89 [facility] [id number] [place] [address] 25703- 3686 16 Jun, 2017 [facility] [id number] [place] [address] 21620- 4386 07 Jun, 2017 [facility] [id number] [place] [address] 90423- 3226 Jun, [facility] [address] [id number] [place] [address] 09278- 4382 May, Back pain M54.9 [facility] [address] 42098- 7576 May, Anorexia R63.0 [facility] [address] 10631- 2806 May, Other dorsalgia M54.89 [facility] [address] 03831- 7775 May, [facility] [address] 35768- 1254 May, Bronchitis J40 [facility] [address] 82217- 0581 May, Type 2 diabetes mellitus with diabetic autonomic (poly) neuropathy E11.43 ; detention current use of insulin Z79.4 ; Back pain M54.9 and Neuropathy G62.9 [facility] [id number] [place] [address] 01158- 1597 May, Left breast mass N63.20 [facility] [address] 64425- 5918 May, [facility] [address] 64317- 8926 Apr, Other dorsalgia M54.89 [facility] [id number] [place] [address] 68413- 3067 Apr, Anorexia R63.0 [facility] [address] 63821- 0113 Apr, Anorexia R63.0 [facility] [address] 37825- 6725 Apr, Mass of left breast N63.20 [facility] [id number] [place] [address] 55885- 7718 Apr, [facility] [id number] [place] [address] 77679- 4124 Apr, [facility] [id number] [place] [address] 39375- 3695 Apr, Diarrhea of presumed infectious origin A09 [facility] [id number] [place] [address] 56296- 9396 Apr, Encounter for immunization Z23 [facility] [address] 26936- 8577 Apr, [facility] [id number] [place] [address] 19298- 8283 Mar, Other dorsalgia M54.89 [facility] [id number] [place] [address] 93633- 6866 Mar, [facility] [id number] [place] [address] 97271- 9356 Mar, [facility] [id number] [place] [address] 43926- 1466 Mar, Anorexia R63.0 [facility] [id number] [place] [address] 42391- 1343 Mar, [facility] [id number] [place] [address] 95979 2545 Mar, Other dorsalgia M54.89 [facility] [id number] [place] [address] 80569- 8402 Mar, [facility] [id number] [place] [address] 03699 2544 Mar, Encounter for immunization Z23 [facility] [id number] [place] [address] 83385- 9286 Feb, Anorexia R63.0 [facility] [id number] [place] [address] 20892 2546 Feb, Diabetes E11.9 [facility] [address] [place] [id number] [place] [address] 52728- 7946 Feb, Back pain M54.9 and Diabetes E11.9 [facility] [address] 16612- 1709 Feb, Diabetes E11.9 [facility] [address] 73395- 6542 Feb, Neuropathy G62.9 [facility] [address] 13164- 9496 Feb, Encounter for immunization Z23 ; Epigastric pain R10.13 ; Weight loss, abnormal R63.4 and Neuropathy G62.9 [facility] [address] [id number] Feb, [facility] [address] 17016- 5143 Feb, [facility] [address] 32699- 4855 Feb, Intractable vomiting with nausea, unspecified vomiting type R11.2 [facility] [address] 98318 -2726 Feb, Chronic nausea R11.0 [facility] [address] 62162- 7901 Feb, Other dorsalgia M54.89 [facility] [id number] [place] [address] 09714- 0270 Jan, [facility] [address] 22782- 9019 Jan, [facility] [address] 99062- 4631 Jan, [facility] [address] 18109- 9046 Jan, [facility] [address] 55498- 2914 08 Jan, 2017 Asthma exacerbation J45.901 ; Bronchitis J40 and Neuropathy G62.9 [facility] [address] 66027- 5456 06 Jan, 2017 Anorexia R63.0 [facility] [id number] [place] [address] 92774- 8943 Jan, Other dorsalgia M54.89 [facility] [address] 20069- 9387 Dec, [facility] [address] 72709- 3309 Dec, [facility] [address] 38952- 7262 Dec, Anorexia R63.0 [facility] [address] 22797- 7465 Dec, Primary insomnia F51.01 [facility] [address] 80478- 4491 Dec, Other dorsalgia M54.89 [facility] [address] 29891- 2978 Dec, [facility] [id number] [place] [address] 58291- 8408 Nov, [facility] [id number] [place] [address] 39300- 0460 Nov, [facility] [id number] [place] [address] 19069- 9971 Nov, [facility] [address] 54121- 3077 Nov, History of colon polyps Z86.010 [facility] [id number] [place] [address] 53661- 2861 Nov, Weight loss R63.4 ; Nausea and vomiting, intractability of vomiting not specified, unspecified vomiting type R11.2 and Abnormal LFTs R79.89 [facility] [id number] [place] [address] 97542- 4746 18 Nov, 2016 [facility] [address] 22004- 7176 Nov, Neuropathy G62.9 and Pain in right knee M25.561 [facility] [address] 36303- 2887 Nov, Back pain M54.9 [facility] [address] 42172- 3415 Nov, [facility] [address] 41766- 5008 Nov, Bronchitis J40 [facility] [address] 37517- 8407 Nov, Weight loss R63.4 [facility] [address] 86116- 6813 Oct, Back pain M54.9 [facility] [address] 58236- 5243 Oct, [facility] [id number] [place] [address] 99182- 9280 Oct, Back pain M54.9 [facility] [address] 26023- 8211 Oct, Type 2 diabetes mellitus without complications E11.9 and Bronchitis J40 [facility] [id number] [place] [address] 54093- 3840 Oct, [facility] [address] 13714- 0057 Oct, [facility] [id number] [place] [address] 83608- 5428 September, Gastroparesis K31.84 ; Type 2 diabetes mellitus with diabetic autonomic (poly)neuropathy E11.43 and Neuropathy G62.9 [facility] [id number] [place] [address] 09122- 4468 September, Other dorsalgia M54.89 [facility] [id number] [place] [address] 28702- 4798 September, [facility] [id number] [place] [address] 74216- 4842 September, [facility] [address] 55857- 0154 Aug, Gastroparesis K31.84 and Radicular leg pain M54.10 [place] [address] 07723- 9410 Aug, Anorexia R63.0 [place] [address] 89597- 2797 Aug, Bronchitis J40 [facility] [id number] [place] [address] 69756- 2472 Aug, Back pain M54.9 [place] [id number] [place] [address] 04963- 7321 Aug, Routine gynecological examination Z01.419 ; Routine screening for STI (sexually transmitted infection) Z11.3 and Yeast infection of the vagina B37.3 [facility] [address] [address] [id number] [place] [address] 99339- 5862 Jul, Other dorsalgia M54.89 [facility] [id number] [place] [address] 27883- 5586 Jul, Diabetes E11.9 and Gastroparesis K31.84 [facility] [id number] [place] [address] 74809- 9809 Jun, [facility] [id number] [place] [address] 76851- 5997 Jun, Back pain M54.9 [place] [id number] [place] [address] 20712- 4903 14 Jun, 2016 Neuropathy G62.9 [facility] [address] [id number] 02 Jun, 2016 Encounter for dental examination Z01.20 [facility] [address] 28511- 1019 01 Jun, 2016 Gastroparesis 536.3 and Anorexia R63.0 [facility] [address] 62516 2541 27 May, 2016 Other dorsalgia M54.89 [facility] [address] 69813- 4636 10 May, 2016 Periumbilical abdominal pain R10.33 ; Weight loss R63.4 and Gastroparesis K31.84 [facility] [address] 19053- 8525 May, Back pain M54.9 [facility] [address] 68795 254 Apr, Anorexia R63.0 [facility] [address] 28580 2540 Apr, Anorexia R63.0 [facility] [id number] [place] [address] 99377 2545 16 Apr, 2016 Back pain M54.9 [facility] [address] 34718 2546 15 Apr, 2016 Back pain M54.9 [facility] [address] 36455 2546 Apr, [facility] [address] 75322 2546 Apr, Bronchitis J40 and Neuropathy G62.9 [facility] [address] 80723- 4647 Apr, Neuropathy G62.9 [facility] [id number] [place] [address] 93471- 1376 Apr, [facility] [id number] [place] [address] 18595- 2362 Apr, Back pain M54.9 [facility] [id number] [place] [address] 46044- 2015 Mar, Type 2 diabetes mellitus with diabetic autonomic (poly) neuropathy E11.43 [facility] [id number] [place] [address] 96873- 0806 Mar, Type 2 diabetes mellitus without complications E11.9 [facility] [id number] [place] [address] 16485- 0215 Mar, Neuropathy G62.9 [facility] [id number] [place] [address] 36723- 7769 Mar, [facility] [id number] [place] [address] 20040- 8560 Mar, Breast cancer screening Z12.39 [place] [address] 51719- 9399 Mar, Other dorsalgia M54.89 [facility] [id number] [place] [address] 41273- 2738 Feb, [facility] [id number] [place] [address] 77182- 8049 Jan, Neuropathy G62.9 ; Type 2 diabetes mellitus with diabetic autonomic (poly)neuropathy E11.43 ; Uncomplicated asthma, unspecified asthma severity J45.909 and Encounter for immunization Z23 [facility] [id number] [place] [address] 61190- 9500 Jan, [facility] [id number] [place] [address] 22949- 7962 Jan, [facility] [address] [place] [address]- 5682 Dec, [facility] [id number] [place] [address] 79783- 1361 Dec, [facility] [id number] [place] [address] 37792- 6491 Nov, [facility] [id number] [place] [address] 52453- 0796 Nov, Back pain M54.9 [facility] [id number] [place] [address] 55292- 7683 Nov, Neuropathy G62.9 ; Mixed hyperlipidemia E78.2 ; Type 2 diabetes mellitus with diabetic autonomic (poly)neuropathy E11.43 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 [place] [id number] [place] [address] 27580- 7070 Oct, [facility] [address] 45463- 5896 Oct, Other dorsalgia M54.89 [facility] [id number] [place] [address] 49105- 6554 September, Primary insomnia F51.01 [facility] [id number] [place] [address] 20472- 8733 September, [facility] [id number] [place] [address] 57781- 4291 Aug, Other dorsalgia M54.89 [facility] [id number] [place] [address] 78045- 5549 Jul, [facility] [id number] [place] [address] 26423- 0926 Jul, Other dorsalgia M54.89 [facility] [id number] [place] [address] 29128- 6398 Jul, Diabetes E11.9 ; Back pain M54.9 ; Neuropathy G62.9 and Gastroparesis K31.84 [place] [id number] [address]- 5626 Jun, [facility] [id number] [place] [address] 89487 2546 Jun, Other dorsalgia M54.89 [facility] [id number] [place] [address] 55961 2546 May, [facility] [id number] [place] [address] 14990 2546 May, Radicular leg pain M54.10 and Other dorsalgia M54.89 [facility] [id number] [place] [address] 79656- 0506 Apr, [facility] [id number] [place] [address] 62315- 3336 Mar, [facility] [id number] [place] [address] 89508- 4331 Mar, [facility] [address] [place] [address] 57936- 5308 Mar, Radicular leg pain M54.10 [facility] [address] [place] [address] 70565- 2884 Feb, [facility] [address] [address]- 8949 Feb, [facility] [id number] [place] [address] 85675 2547 Feb, [facility] [address] [address]- 2541 Jan, [facility] [id number] [place] [address] 54114- 8326 Jan, IBS (irritable bowel syndrome) 564.1 [facility] [address] [address]- 6225 Jan, [facility] [id number] [place] [address] 06190- 8050 Jan, [facility] [id number] [place] [address] 42985- 8062 Jan, Diabetes mellitus without mention of complication, type II or unspecified type, not stated as uncontrolled 250.00 ; Gastroparesis 536.3 and Hypoacusis 389.9 [facility] [id number] [place] [address] 84931- 1133 Jan, [facility] [id number] [place] [address] 02720- 1983 Jan, [facility] [id number] [place] [address] 36680- 3790 Dec, [facility] [id number] [place] [address] 34193- 7171 Dec, [facility] [id number] [place] [address] 36826- 3862 Dec, [facility] [id number] [place] [address] 85043- 1545 Dec, Back pain 724.5 and Gastroparesis 536.3 [facility] [id number] [place] [address] 18619- 8481 Nov, [facility] [address] [place] [address] [id number] Nov, Dental examination V72.2 [facility] [address] [place] [address] 38425- 9782 Nov, [facility] [id number] [place] [address] 78939- 7665 Nov, [facility] [id number] [place] [address] 15429- 6465 Nov, Depressive disorder, not elsewhere classified 311 and No condition on [place] II V71.09 [facility] [id number] [place] [address] 20860- 5396 Nov, Diabetes 250.00 and Symptomatic menopausal or female climacteric states 627.2 [facility] [address] [address]- 8556 Oct, [facility] [address] [address]- 4636 Oct, Lumbar strain 847.2 [facility] [address] [address]- 7066 Oct, Gastroparesis 536.3 and Unspecified myalgia and myositis 729.1 [facility] [id number] [address] Aug, [facility] [id number] [address] Aug, [facility] [id number] [address] Jul, [facility] [id number] [address] Jul, [facility] [id number], [place] [address] Jul, [facility] [id number] [address] Jul, [facility] [id number] [address] Jul, [facility] [id number] [address] Jun, [facility] [id number], [place] [address] Jun, [facility] [id number] [address] Jun, [facility] [id number] [address] May, [facility] [place] [facility] [address] [id number] [place] [address] May, [facility] [place] [facility] [address] [id number] [place] [address] Mar, [facility] [place] [facility] [address] [id number] [place] [address] Mar, [facility] [place] [facility] [address] [id number] [place] [address] Mar, [facility] [place] [facility] [address] [id number] [place] [address] Mar, [facility] [place] [facility] [address] [id number] [place] [address] Mar, [facility] [place] [facility] [address] [id number] [place] [address] Mar, [facility] [place] [facility] [address] [id number] [place] [address] Feb, [facility] [place] [facility] [address] [id number] [place] [address] Feb, [facility] [place] [facility] [address] [id number] [place] [address] Nov, [facility] [place] [facility] [address] [id number] [address] Nov, [facility] [place] [facility] [address] [id number] [address] Nov, [facility] [place] [facility] [address] [id number] [place] [address] Oct, [facility] [place] [facility] [address] [id number] [address] September, [facility] [place] [facility] [address] [id number] [place] [address] Aug, [facility] [place] [facility] [address] [id number] [place] [address] 15 Aug, 2012 [facility] [address] [id number] [place] [address] 11 Aug, 2012 [facility] [place] [facility] [address] [id number] [place] [address] Aug, [facility] [address] [id number] [place] [address] 10 Aug, 2012 [facility] [place] [facility] [address] [id number] [place] [address] Aug, [facility] [address] [id number] [place] [address] Aug, [facility] [place] [facility] [address] [facility] [id number] [place] [address] Aug, [facility] [address] [id number] [place] [address] Jul, [facility] [address] [id number] [place] [address] Jul, [facility] [place] [facility] [address] [facility] [id number] [place] [address] Jun, [facility] [address] [facility] [id number] [place] [address] Jun, [facility] [place] [facility] [address] [id number] [place] [address] Jun, [facility] [place] [facility] [address] [facility] [id number] [place] [address] 08 Jun, 2012 [facility] [place] [facility] [address] [id number] [place] [address] Jun, [facility] [place] [facility] [address] [facility] [id number] [place] [address] 07 Jun, 2012 [facility] [place] [facility] [address] [facility] [id number] [place] [address] Jun, [facility] [address] [facility] [id number] [address] [address] May, [facility] [address] [id number] [address] May, [facility] [address] [facility] [id number], [place] [address] May, [facility] [address] [id number] [address] May, [facility] [address] [id number] [address] Mar, [facility] [address] [id number] [address] Mar, [facility] [address] [id number] [address] Jan, IMMUNIZATIONS No Known Immunizations SOCIAL HISTORY Never Assessed REASON FOR VISIT no show for DM ed PLAN OF CARE VITAL [...] vomitting-[facility] 03/05/17 Hospitalization History hospital stay at [facility] for stomach issues 2016
--- OUTSIDE RECORDS SUMMARY | 2018-01-27 20:30 | XMS REPORT ---
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.4 Active 490359017 Problem PTSD (post-traumatic stress disorder) F43.10 Active 88044339 Problem Asthma exacerbation J45.901 Active 951198199 Problem Weight loss R63.4 Active 550286286 Problem Anorexia R63.0 Active 55853337 Problem Primary insomnia F51.01 Active 6335811 Problem History of colon polyps Z86.010 Active 706672349 Problem Neuropathy G62.9 Active 375642905 Problem Diabetes E11.9 Active 29043805 Problem Depressive disorder, not elsewhere classified 311 Active 28180560 Problem Gastroparesis K31.84 Active 634224638 Problem Back pain M54.9 Active 850494776 Problem Mixed hyperlipidemia E78.2 Active 981147812 ALLERGIES No Information ENCOUNTERS Encounter Location Date Diagnosis [facility] [id number] [id number] Aug, [facility] [address], [place] [address] Aug, [facility] [id number] [place] [address] 53653- 8521 Aug, [facility] [address], [place] [address] 0160 Aug, Other dorsalgia M54.89 and Anorexia R63.0 [facility] [id number] [address] Jul, [facility] [id number] [place] [address] 35773 2546 Jul, Other dorsalgia M54.89 [facility] [id number] [place] [address] 50193 2546 Jul, [facility] [id number] [place] [address] 76799 2546 Jul, [facility] [id number] [place] [address] 31104 2546 Jul, PTSD (post-traumatic stress disorder) F43.10 [facility] [id number] [place] [address] 47017- 2506 Jul, [facility] [id number] [place] [address] 77757- 5556 Jul, [facility] [id number] [place] [address] 50813 2546 Jul, [facility] [id number] [place] [address] 83141- 9856 Jul, Anorexia R63.0 [facility] [id number] [place] [address] 44469- 7326 Jun, [facility] [id number] [place] [address] 59228 2546 Jun, Vaginal discharge N89.8 ; Visit for gynecologic examination Z01.419 and Pelvic pressure in female R10.2 [facility] [id number] [place] [address] 86911- 0786 Jun, [facility] [id number] [place] [address] 20246- 8326 Jun, Other dorsalgia M54.89 [facility] [id number] [place] [address] 30137- 4506 16 Jun, 2017 [facility] [id number] [place] [address] 89111- 4122 Jun, [facility] [id number] [place] [address] 87500- 4026 Jun, [facility] [id number] [place] [address] 55194- 7428 May, Back pain M54.9 [facility] [address] 49639- 2726 May, Anorexia R63.0 [facility] [id number] [place] [address] 70815- 9262 May, Other dorsalgia M54.89 [facility] [id number] [place] [address] 32079- 5361 May, [facility] [address] 10922- 7992 May, Bronchitis J40 [facility] [id number] [place] [address] 51696- 4363 May, Type 2 diabetes mellitus with diabetic autonomic (poly) neuropathy E11.43 ; skilled nursing current use of insulin Z79.4 ; Back pain M54.9 and Neuropathy G62.9 [facility] [id number] [place] [address] 06748- 0226 May, Left breast mass N63.20 [facility] [id number] [place] [address] 15788- 6575 May, [facility] [id number] [place] [address] 68476- 0205 Apr, Other dorsalgia M54.89 [facility] [id number] [place] [address] 87057- 8586 Apr, Anorexia R63.0 [facility] [id number] [place] [address] 21105- 7046 Apr, Anorexia R63.0 [facility] [address] [place] [address] 87036- 0542 Apr, Mass of left breast N63.20 [facility] [id number] [place] [address] 33803- 9510 Apr, [facility] [id number] [place] [address] 16397- 7543 Apr, [facility] [id number] [place] [address] 54693- 1116 Apr, Diarrhea of presumed infectious origin A09 [facility] [id number] [place] [address] 58172- 5032 Apr, Encounter for immunization Z23 [facility] [id number] [place] [address] 16454- 2843 Apr, [facility] [id number] [place] [address] 78521- 4009 Mar, Other dorsalgia M54.89 [facility] [id number] [place] [address] 02728- 9853 Mar, [facility] [id number] [place] [address] 44225- 6276 Mar, [facility] [id number] [place] [address] 32801- 6159 Mar, Anorexia R63.0 [facility] [id number] [place] [address] 97180- 7338 Mar, [facility] [id number] [place] [address] 83722- 5429 Mar, Other dorsalgia M54.89 [facility] [id number] [place] [address] 35640- 8230 Mar, [facility] [id number] [place] [address] 88092- 9869 Mar, Encounter for immunization Z23 [facility] [id number] [place] [address] 22595- 6960 31 Feb, 2017 Anorexia R63.0 [facility] [address] 09613- 3179 Feb, Diabetes E11.9 [facility] [id number] [place] [address] 37809- 7180 Feb, Back pain M54.9 and Diabetes E11.9 [facility] [address] 68226- 4359 Feb, Diabetes E11.9 [facility] [address] 89385- 0900 Feb, Neuropathy G62.9 [facility] [id number] [place] [address] 81495- 4333 Feb, Encounter for immunization Z23 ; Epigastric pain R10.13 ; Weight loss, abnormal R63.4 and Neuropathy G62.9 [facility] [address] [id number] Feb, [facility] [address] 45135- 8214 Feb, [facility] [id number] [place] [address] 55920- 2053 Feb, Intractable vomiting with nausea, unspecified vomiting type R11.2 [facility] [id number] [place] [address] 12879 -1281 Feb, Chronic nausea R11.0 [facility] [id number] [place] [address] 73728- 5090 Feb, Other dorsalgia M54.89 [facility] [id number] [place] [address] 25566- 0005 Jan, [facility] [id number] [place] [address] 48496- 3533 Jan, [facility] [address] [place] [address] 2546 08 Jan, 2017 [facility] [id number] [place] [address] 83655 2546 Jan, [facility] [id number] [place] [address] 64130 2546 Jan, Asthma exacerbation J45.901 ; Bronchitis J40 and Neuropathy G62.9 [facility] [address] 27822 2546 06 Jan, 2017 Anorexia R63.0 [facility] [id number] [place] [address] 83395 2546 Jan, Other dorsalgia M54.89 [facility] [id number] [place] [address] 48428- 1096 Dec, [facility] [id number] [place] [address] 16358- 5016 Dec, [facility] [id number] [place] [address] 76961 2546 15 Dec, 2016 Anorexia R63.0 [facility] [id number] [place] [address] 50814- 9216 Dec, Primary insomnia F51.01 [facility] [id number] [place] [address] 13316- 4778 Dec, Other dorsalgia M54.89 [facility] [id number] [place] [address] 21280- 5480 Dec, [facility] [id number] [place] [address] 60413- 0927 Nov, [facility] [id number] [place] [address] 02799 2546 Nov, [facility] [id number] [place] [address] 86234- 9836 Nov, [facility] [id number] [place] [address] 75537- 1853 Nov, History of colon polyps Z86.010 [facility] [id number] [place] [address] 88737- 5483 Nov, Weight loss R63.4 ; Nausea and vomiting, intractability of vomiting not specified, unspecified vomiting type R11.2 and Abnormal LFTs R79.89 [facility] [id number] [place] [address] 67690- 3041 Nov, [facility] [id number] [place] [address] 32776- 7335 Nov, Neuropathy G62.9 and Pain in right knee M25.561 [facility] [id number] [place] [address] 38579- 5951 Nov, Back pain M54.9 [facility] [id number] [place] [address] 60042- 3840 10 Nov, 2016 [facility] [id number] [place] [address] 21560- 3353 08 Nov, 2016 Bronchitis J40 [facility] [id number] [place] [address] 54090- 5137 03 Nov, 2016 Weight loss R63.4 [facility] [id number] [place] [address] 75073- 7858 16 Oct, 2016 Back pain M54.9 [facility] [id number] [place] [address] 22644- 5000 16 Oct, 2016 [facility] [id number] [place] [address] 15275- 9172 14 Oct, 2016 Back pain M54.9 [facility] [id number] [place] [address] 34770- 0254 13 Oct, 2016 Type 2 diabetes mellitus without complications E11.9 and Bronchitis J40 [facility] [id number] [place] [address] 25319- 4562 05 Oct, 2016 [place] [id number] [place] [address] 87002- 7003 Oct, [facility] [facility] [address] 42593- 1561 September, Gastroparesis K31.84 ; Type 2 diabetes mellitus with diabetic autonomic (poly)neuropathy E11.43 and Neuropathy G62.9 [place] [facility] [address] 55794- 7480 September, Other dorsalgia M54.89 [place] [facility] [address] 82427- 5910 September, [facility] [facility] [address] 40221- 0136 September, [facility] [facility] [address] 22479- 6377 Aug, Gastroparesis K31.84 and Radicular leg pain M54.10 [facility] [facility] [id number] [place] [address] 91868- 9830 Aug, Anorexia R63.0 [facility] [facility] [address] 56605- 1473 Aug, Bronchitis J40 [facility] [id number] [place] [address] 78281- 8304 Aug, Back pain M54.9 [facility] [id number] [place] [address] 00900- 4744 Aug, Routine gynecological examination Z01.419 ; Routine screening for STI (sexually transmitted infection) Z11.3 and Yeast infection of the vagina B37.3 [facility] [id number] [place] [address] 43893- 9942 Jul, Other dorsalgia M54.89 [facility] [facility] [id number] [place] [address] 60022- 0275 Jul, Diabetes E11.9 and Gastroparesis K31.84 [facility] [id number] [place] [address] 02128- 5515 Jun, [facility] [address] 57081- 6698 24 Jun, 2016 Back pain M54.9 [facility] [address] 39966- 5294 14 Jun, 2016 Neuropathy G62.9 [facility] [address] [id number] 02 Jun, 2016 Encounter for dental examination Z01.20 [facility] [address] 09366- 6163 Jun, Gastroparesis 536.3 and Anorexia R63.0 [facility] [address] 09936- 4984 May, Other dorsalgia M54.89 [facility] [address] 36437- 8668 May, Periumbilical abdominal pain R10.33 ; Weight loss R63.4 and Gastroparesis K31.84 [facility] [address] 65687- 4491 May, Back pain M54.9 [facility] [address] 19005 2546 Apr, Anorexia R63.0 [facility] [address] 69934 2546 Apr, Anorexia R63.0 [facility] [address] 37981- 6427 Apr, Back pain M54.9 [facility] [address] 32532 2549 15 Apr, 2016 Back pain M54.9 [facility] [address] 67863- 3995 Apr, [facility] [id number] [place] [address] 38127- 4883 Apr, Bronchitis J40 and Neuropathy G62.9 [facility] [id number] [place] [address] 38687- 8925 Apr, Neuropathy G62.9 [facility] [address] 64390- 4376 Apr, [facility] [address] 12023- 0467 Apr, Back pain M54.9 [place] [address] 74805- 0365 Mar, Type 2 diabetes mellitus with diabetic autonomic (poly) neuropathy E11.43 [facility] [facility] [address] 51506- 4399 Mar, Type 2 diabetes mellitus without complications E11.9 [facility] [id number] [place] [address] 61994- 8952 Mar, Neuropathy G62.9 [facility] [address] 46984- 5248 Mar, [facility] [address] 69314- 1388 Mar, Breast cancer screening Z12.39 [facility] [id number] [place] [address] 91130- 6578 Mar, Other dorsalgia M54.89 [facility] [id number] [place] [address] 74438- 3437 Feb, [facility] [facility] [address] 27406- 9036 Jan, Neuropathy G62.9 ; Type 2 diabetes mellitus with diabetic autonomic (poly)neuropathy E11.43 ; Uncomplicated asthma, unspecified asthma severity J45.909 and Encounter for immunization Z23 [facility] [address], [place] [address]- 8372 Jan, [facility] [id number] [place] [address] 24198- 8418 Jan, [facility] [id number] [place] [address] 35912- 3166 Dec, [facility] [id number] [place] [address] 04413- 6526 Dec, [facility] [id number] [place] [address] 96661- 6665 Nov, [facility] [id number] [place] [address] 93168- 9205 Nov, Back pain M54.9 [facility] [id number] [place] [address] 43137- 2267 Nov, Neuropathy G62.9 ; Mixed hyperlipidemia E78.2 ; Type 2 diabetes mellitus with diabetic autonomic (poly)neuropathy E11.43 and skilled nursing current use of insulin Z79.4 [facility] [id number] [place] [address] 16522- 8116 Oct, [facility] [id number] [place] [address] 51452- 0620 Oct, Other dorsalgia M54.89 [facility] [id number] [place] [address] 95755- 0901 September, Primary insomnia F51.01 [facility] [id number] [place] [address] 78300- 9774 September, [facility] [id number] [place] [address] 28522- 8314 Aug, Other dorsalgia M54.89 [facility] [id number] [place] [address] 19369- 0621 Jul, [facility] [id number] [place] [address] 85929- 3204 Jul, Other dorsalgia M54.89 [facility] [id number] [place] [address] 11814- 4880 Jul, Diabetes E11.9 ; Back pain M54.9 ; Neuropathy G62.9 and Gastroparesis K31.84 [facility] [id number] [place] [address] 48910- 4904 Jun, [facility] [id number] [place] [address] 41301- 5326 Jun, Other dorsalgia M54.89 [facility] [id number] [place] [address] 79881- 6455 May, [facility] [id number] [place] [address] 86018- 8074 May, Radicular leg pain M54.10 and Other dorsalgia M54.89 [facility] [id number] [place] [address] 03186- 4297 Apr, [facility] [id number] [place] [address] 32615- 1214 Mar, [facility] [id number] [place] [address] 17780- 4650 Mar, [facility] [address] [place] [address] 50876- 5360 Mar, Radicular leg pain M54.10 [facility] [id number] [place] [address] 51668- 4046 Feb, [facility] [id number] [place] [address] 76692- 8712 Feb, [facility] [id number] [place] [address] 86179- 7649 Feb, [facility] [address] [place] [address] 01517- 3978 Jan, [facility] [id number] [place] [address] 03523- 2397 Jan, IBS (irritable bowel syndrome) 564.1 [facility] [id number] [place] [address] 29409- 1182 Jan, [facility] [id number] [place] [address] 09460- 7426 Jan, [facility] [id number] [place] [address] 88750- 9745 Jan, Diabetes mellitus without mention of complication, type II or unspecified type, not stated as uncontrolled 250.00 ; Gastroparesis 536.3 and Hypoacusis 389.9 [facility] [id number] [place] [address] 53685- 6360 Jan, [facility] [id number] [place] [address] 32387- 9044 Jan, [facility] [id number] [place] [address] 41060- 4859 Dec, [facility] [id number] [place] [address] 51840- 0916 Dec, [facility] [id number] [place] [address] 60710- 5993 Dec, [facility] [id number] [place] [address] 53852- 7550 Dec, Back pain 724.5 and Gastroparesis 536.3 [facility] [id number] [place] [address] 41672- 5688 Nov, [facility] [id number] [place] [address] [id number] Nov, Dental examination V72.2 [facility] [id number] [address] Nov, [facility] [id number] [place] [address] 14810- 8433 Nov, [facility] [id number] [address] Nov, Depressive disorder, not elsewhere classified 311 and No condition on Floris II V71.09 [facility] [id number] [address] Nov, Diabetes 250.00 and Symptomatic menopausal or female climacteric states 627.2 [facility] [id number] [place] [address] 71999- 8530 Oct, [facility] [id number] [place] [address] 12671- 1980 Oct, Lumbar strain 847.2 [facility] [id number] [place] [address] 18908- 2065 Oct, Gastroparesis 536.3 and Unspecified myalgia and myositis 729.1 [facility] [id number] [place] [address] 18273- 6488 Aug, [facility] [id number] [place] [address] Aug, [facility] [id number] [place] [address] 6[address] Jul, [facility] [id number] [place] [address] 7877 Jul, [facility] [id number] [place] [address] 0661 Jul, [facility] [id number] [place] [address] Jul, [facility] [id number] [address] [address] Jul, [facility] [id number] [address] 4636 Jun, [facility] [id number] [place] [address] 95357- 9916 Jun, [facility] [place] [facility] [address] [id number] [place] [address]- 9730 Jun, [facility] [place] [facility] [address] [id number] [place] [address]- 9774 May, [facility] [place] [facility] [address] [id number] [place] [address]- 4158 May, [facility] [place] [facility] [address] [id number] [place] [address]- 8686 Mar, [facility] [place] [facility] [address] [id number] [place] [address]- 7533 Mar, [facility] [place] [facility] [address] [id number] [place] [address]- 2412 Mar, [facility] [place] [facility] [address] [id number] [place] [address]- 9355 Mar, [facility] [place] [facility] [address] [id number] [place] [address]- 8771 Mar, [facility] [place] [facility] [address] [id number] [place] [address]- 2617 Mar, [facility] [place] [facility] [address] [facility] [id number] [place] [address]- 7345 Feb, [facility] [place] [facility] [address] [address] [id number] [place] [address] Feb, [facility] [place] [facility] [address] [id number] [place] [address] Nov, [facility] [place] [facility] [address] [id number] [place] [address] Nov, [facility] [place] [facility] [address] [id number] [place] [address] Nov, [facility] [place] [facility] [address] [facility] [id number] [place] [address] Oct, [facility] [place] [facility] [address] [id number] [place] [address] September, [facility] [address] [id number] [place] [address] Aug, [facility] [place] [facility] [address] [id number] [place] [address] Aug, [facility] [place] [facility] [address] [id number] [place] [address] Aug, [facility] [place] [facility] [address] [id number] [place] [address] Aug, [facility] [place] [facility] [address] [id number] [place] [address] Aug, [facility] [address] [id number] [place] [address] Aug, [facility] [address] [id number] [place] [address] Aug, [facility] [address] [id number] [place] [address] Aug, [facility] [place] [facility] [address] [id number] [place] [address] Jul, [facility] [place] [facility] [address] [id number] [place] [address] Jul, [facility] [place] [facility] [address] [id number] [place] [address] Jun, [facility] [place] [facility] [address] [id number] [place] [address] Jun, [facility] [place] [facility] [address] [id number] [place] [address] Jun, [facility] [place] [facility] [address] [id number] [place] [address] Jun, [facility] [place] [facility] [address] [id number], [place] [address] Jun, [facility] [address] [id number] [address] Jun, [facility] [id number] [address] [address] Jun, [facility] [address] [id number], [place] [address] May, [facility] [id number], [place] [address] May, [facility] [id number], [place] [address] May, [facility] [id number], [place] [address] May, [facility] [id number], [place] [address] Mar, [facility] [id number], [place] [address] Mar, [facility] [address] [id number], [place] [address] Jan, IMMUNIZATIONS No Known Immunizations SOCIAL HISTORY Never Assessed REASON FOR VISIT DM ed scheduled PLAN OF CARE VITAL SIGNS MEDICATIONS Unknown [...] vomitting-[facility] 03/05/17 Hospitalization History hospital stay at [facility] for stomach issues 2016
--- OUTSIDE RECORDS SUMMARY | 2018-01-27 20:30 | XMS REPORT ---
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 Name Role Phone HORACE HIGGINS Unavailable PROBLEMS Type Condition ICD9-CM Code USH09-FU Code Onset Dates Condition Status SNOMED Code Problem Weight loss R63.4 Active 929763528 Problem Primary insomnia F51.01 Active 3531014 Problem History of colon polyps Z86.010 Active 449772645 Problem Annual physical exam Z00.00 Active 390809678 Problem Migraine without aura and without status migrainosus, not intractable G43.009 Active 112649812 Problem Reactive depression F32.9 Active 75453154 Problem Asthma exacerbation J45.901 Active 340533187 Problem PTSD (post-traumatic stress disorder) F43.10 Active 32052488 Problem Diabetic polyneuropathy associated with type 2 diabetes mellitus E11.42 Active 89352171 Problem Neuropathy G62.9 Active 324176525 Problem Diabetes E11.9 Active 19320409 Problem Low TSH level R94.6 Active 123472635 Problem Back pain M54.9 Active 317932970 Problem Mixed hyperlipidemia E78.2 Active 531211702 Problem Type 2 diabetes mellitus with diabetic autonomic (poly)neuropathy E11.43 Active 60137047 Problem Gastroparesis K31.84 Active 077348776 Problem Uncomplicated asthma, unspecified asthma severity J45.909 Active 369316423 Problem long term care 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 of insulin Z79.4 Active 452042453 Problem Anorexia R63.0 Active 14927946 ALLERGIES No Information ENCOUNTERS Encounter Location Date Diagnosis [facility] [address], [place] [address] Oct, [facility] [id number], [place] [address] Oct, [facility] [id number] [place] [address] 95641- 8391 September, PTSD (post-traumatic stress disorder) F43.10 [address] [place] [address] September, Low TSH level R94.6 [place] [address] 0[address]89- 4110 September, Other dorsalgia M54.89 [address] [address] [place] [id number]- 9164 September, Annual physical exam Z00.00 and Migraine without aura and without status migrainosus, not intractable G43.009 [place] [address] [place] [id number]- 5186 September, Abnormal TSH R94.6 and Dysfunction of left eustachian tube H69.82 [place] [address] [place] [id number] 6083 Aug, [place] [address] [address]60 0401 Aug, Anorexia R63.0 [facility] [address] [id number] Aug, Dental examination Z01.20 and Xerostomia K11.7 [place] [address] 97205- 4691 Aug, Neuropathy G62.9 [place] [address] 20094- 7612 Aug, [place] [address] 66822- 7521 Aug, Other dorsalgia M54.89 [place] [address] [place] [id number]- 6283 Aug, Type 2 diabetes mellitus with diabetic autonomic (poly) neuropathy E11.43 ; Diabetic polyneuropathy associated with type 2 diabetes mellitus E11.42 ; Bronchitis J40 ; Gastroparesis K31.84 and Reactive depression F32.9 [facility] [id number] [place] [address] 43983 2546 Aug, PTSD (post-traumatic stress disorder) F43.10 [facility] [id number] [place] [address] 34349- 2546 Aug, Other dorsalgia M54.89 and Anorexia R63.0 [facility] [address] 34920 2546 Jul, [facility] [address] 48691 2546 Jul, Other dorsalgia M54.89 [facility] [id number] [place] [address] 32830 2546 Jul, [facility] [address] 93968 2546 Jul, [facility] [address] 21762 2546 Jul, PTSD (post-traumatic stress disorder) F43.10 [facility] [address] 67513 2546 Jul, [facility] [id number] [place] [address] 10638 2546 Jul, [facility] [id number] [place] [address] 09733 2546 Jul, [facility] [id number] [place] [address] 06721 2546 Jul, Anorexia R63.0 [facility] [id number] [place] [address] 92887 2546 Jun, [facility] [id number] [place] [address] 05832 2546 Jun, Vaginal discharge N89.8 ; Visit for gynecologic examination Z01.419 and Pelvic pressure in female R10.2 [facility] [address] 26922- 6350 Jun, [facility] [address] 56414- 1167 Jun, Other dorsalgia M54.89 [facility] [address] 51025- 3510 Jun, [facility] [address] 18385- 3167 Jun, [facility] [address] 15483- 1526 Jun, [facility] [address] 14907- 3866 May, Back pain M54.9 [facility] [address] 18897- 7699 May, Anorexia R63.0 [facility] [address] 45157- 0395 May, Other dorsalgia M54.89 [facility] [address] 17699- 8269 May, [facility] [address] 20709- 7011 May, Bronchitis J40 [facility] [address] 99611- 1004 May, Type 2 diabetes mellitus with diabetic autonomic (poly) neuropathy E11.43 ; long term care 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 of insulin Z79.4 ; Back pain M54.9 and Neuropathy G62.9 [facility] [address] 07711- 7225 May, Left breast mass N63.20 [facility] [address] 15552- 8228 May, [facility] [id number] [place] [address] 67642- 8066 Apr, Other dorsalgia M54.89 [facility] [address] 55306 2546 Apr, Anorexia R63.0 [facility] [id number] [place] [address] 69729 2546 Apr, Anorexia R63.0 [facility] [address] 01968 2542 Apr, Mass of left breast N63.20 [facility] [address] 34522 2546 Apr, [facility] [id number] [place] [address] 26614 2545 Apr, [facility] [address] 01197- 1989 Apr, Diarrhea of presumed infectious origin A09 [facility] [id number] [place] [address] 78106 2545 Apr, Encounter for immunization Z23 [facility] [address] 56982- 254 05 Apr, 2017 [facility] [id number] [place] [address] 62334- 2549 Mar, Other dorsalgia M54.89 [facility] [id number] [place] [address] 46876 2546 Mar, [facility] [id number] [place] [address] 42042 2543 Mar, [facility] [id number] [place] [address] 46267 2546 16 Mar, 2017 Anorexia R63.0 [facility] [id number] [place] [address] 39149- 2542 Mar, [facility] [id number] [place] [address] 71936- 7778 Mar, Other dorsalgia M54.89 [facility] [address] 36544- 6657 Mar, [facility] [id number] [place] [address] 66871- 1028 Mar, Encounter for immunization Z23 [facility] [address] 36282- 5947 Feb, Anorexia R63.0 [facility] [address] 45408- 7726 Feb, Diabetes E11.9 [facility] [address] 78226- 0290 Feb, Back pain M54.9 and Diabetes E11.9 [place] [address] 16946- 8951 Feb, Diabetes E11.9 [facility] [id number] [place] [address] 83195- 6091 Feb, Neuropathy G62.9 [facility] [id number] [place] [address] 26683- 6220 Feb, Encounter for immunization Z23 ; Epigastric pain R10.13 ; Weight loss, abnormal R63.4 and Neuropathy G62.9 [facility] [id number] [place] [address] [id number] Feb, [facility] [id number] [place] [address] 58080- 1031 Feb, [facility] [id number] [place] [address] 60617- 8296 Feb, Intractable vomiting with nausea, unspecified vomiting type R11.2 [facility] [id number] [place] [address] 21943 -0151 Feb, Chronic nausea R11.0 [facility] [id number] [place] [address] 63585- 6473 Feb, Other dorsalgia M54.89 [facility] [address] 91052- 4916 Jan, [facility] [address] 58934- 8098 Jan, [facility] [address] 22694- 4676 Jan, [facility] [address] 41432- 5120 Jan, [facility] [address] 75559- 3486 Jan, Asthma exacerbation J45.901 ; Bronchitis J40 and Neuropathy G62.9 [facility] [address] 11059- 6266 Jan, Anorexia R63.0 [facility] [address] 86291- 7284 Jan, Other dorsalgia M54.89 [facility] [id number] [place] [address] 44973- 7094 Dec, [facility] [id number] [place] [address] 12883- 0322 Dec, [facility] [id number] [place] [address] 55894- 6090 15 Dec, 2016 Anorexia R63.0 [facility] [id number] [place] [address] 50707 254 14 Dec, 2016 Primary insomnia F51.01 [facility] [id number] [place] [address] 96672- 7855 Dec, Other dorsalgia M54.89 [facility] [id number] [place] [address] 73724- 0863 Dec, [facility] [address], [place] [address]- 8119 Nov, [facility] [id number] [place] [address] 93335- 1312 Nov, [facility] [address], [place] [address]- 3713 Nov, [facility] [id number] [place] [address] 59547- 2172 Nov, History of colon polyps Z86.010 [facility] [address] [place] [address] 08308- 9732 Nov, Weight loss R63.4 ; Nausea and vomiting, intractability of vomiting not specified, unspecified vomiting type R11.2 and Abnormal LFTs R79.89 [facility] [id number] [place] [address] 58040- 9826 Nov, [facility] [id number] [place] [address] 12436- 1836 Nov, Neuropathy G62.9 and Pain in right knee M25.561 [facility] [id number] [place] [address] 04991- 7482 Nov, Back pain M54.9 [facility] [address], [place] [address]- 3768 Nov, [facility] [address] [place] [address] 66018- 6200 Nov, Bronchitis J40 [facility] [address], [place] [address]- 7267 Nov, Weight loss R63.4 [facility] [id number] [place] [address] 20494- 3156 Oct, Back pain M54.9 [facility] [address], [place] [address]- 1031 Oct, [facility] [id number] [place] [address] 89289- 8725 14 Oct, 2016 Back pain M54.9 [facility] [address] 56742- 8294 13 Oct, 2016 Type 2 diabetes mellitus without complications E11.9 and Bronchitis J40 [facility] [id number] [place] [address] 48439- 0682 05 Oct, 2016 [facility] [address] 00329- 4691 Oct, [facility] [id number] [place] [address] 73424- 2444 September, Gastroparesis K31.84 ; Type 2 diabetes mellitus with diabetic autonomic (poly)neuropathy E11.43 and Neuropathy G62.9 [place] [address] 64735- 7509 September, Other dorsalgia M54.89 [facility] [address] 52703- 4052 September, [facility] [address] 26253- 6851 September, [facility] [id number] [place] [address] 77633- 2673 Aug, Gastroparesis K31.84 and Radicular leg pain M54.10 [place] [id number] [place] [address] 46226- 5467 Aug, Anorexia R63.0 [facility] [id number] [place] [address] 17587- 4262 Aug, Bronchitis J40 [facility] [id number] [place] [address] 73836- 1810 Aug, Back pain M54.9 [facility] [id number] [place] [address] 40957- 7849 Aug, Routine gynecological examination Z01.419 ; Routine screening for STI (sexually transmitted infection) Z11.3 and Yeast infection of the vagina B37.3 [facility] [id number] [place] [address] 87575- 1726 Jul, Other dorsalgia M54.89 [facility] [id number] [place] [address] 23369- 8656 Jul, Diabetes E11.9 and Gastroparesis K31.84 [facility] [address] 39810- 6688 Jun, [facility] [id number] [place] [address] 74115- 6043 Jun, Back pain M54.9 [facility] [address] 05131- 7681 14 Jun, 2016 Neuropathy G62.9 [facility] [address] [id number] 02 Jun, 2016 Encounter for dental examination Z01.20 [facility] [id number] [place] [address] 45108- 1846 Jun, Gastroparesis 536.3 and Anorexia R63.0 [facility] [id number] [place] [address] 75078- 0996 May, Other dorsalgia M54.89 [facility] [id number] [place] [address] 90831- 7181 May, Periumbilical abdominal pain R10.33 ; Weight loss R63.4 and Gastroparesis K31.84 [facility] [id number] [place] [address] 15014- 6509 May, Back pain M54.9 [facility] [id number] [place] [address] 96243- 0519 Apr, Anorexia R63.0 [facility] [address] [place] [address] 00850- 0609 Apr, Anorexia R63.0 [facility] [address] 88362- 1053 Apr, Back pain M54.9 [facility] [address] 68604- 5833 Apr, Back pain M54.9 [facility] [address] 61835- 3117 Apr, [facility] [address] 17865- 8781 Apr, Bronchitis J40 and Neuropathy G62.9 [facility] [address] 30550- 0391 Apr, Neuropathy G62.9 [facility] [address] 93196- 4538 Apr, [facility] [address] 97931- 4882 Apr, Back pain M54.9 [facility] [address] 37745- 5353 Mar, Type 2 diabetes mellitus with diabetic autonomic (poly) neuropathy E11.43 [facility] [address] 10717- 4454 Mar, Type 2 diabetes mellitus without complications E11.9 [facility] [address] 35162- 0841 Mar, Neuropathy G62.9 [facility] [id number] [place] [address] 20597- 9630 Mar, [facility] [address] 73699- 8512 Mar, Breast cancer screening Z12.39 [facility] [address] 04490- 4809 Mar, Other dorsalgia M54.89 [facility] [id number] [place] [address] 69957- 8634 Feb, [facility] [address] 11633- 2703 30 Jan, 2016 Neuropathy G62.9 ; Type 2 diabetes mellitus with diabetic autonomic (poly)neuropathy E11.43 ; Uncomplicated asthma, unspecified asthma severity J45.909 and Encounter for immunization Z23 [facility] [address] 19513- 3467 09 Jan, 2016 [facility] [address] 08348- 1636 Jan, [facility] [address] 88225- 1137 Dec, [place] [address] 50625- 2434 Dec, [place] [id number] [place] [address] 80874- 3512 Nov, [facility] [id number] [place] [address] 43602- 9712 Nov, Back pain M54.9 [place] [id number] [place] [address] 33425- 2890 Nov, Neuropathy G62.9 ; Mixed hyperlipidemia E78.2 ; Type 2 diabetes mellitus with diabetic autonomic (poly)neuropathy E11.43 and long term care 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 of insulin Z79.4 [place] [id number] [place] [address] 36268- 6717 Oct, [place] [address] 97207- 7773 Oct, Other dorsalgia M54.89 [facility] [id number] [place] [address] 54150- 0880 September, Primary insomnia F51.01 [place] [address] 59333- 2773 September, [facility] [address] [place] [address] 54409- 7824 Aug, Other dorsalgia M54.89 [facility] [id number] [place] [address] 68006- 1285 Jul, [facility] [id number] [place] [address] 82443- 1165 Jul, Other dorsalgia M54.89 [facility] [id number] [place] [address] 08104- 3923 Jul, Diabetes E11.9 ; Back pain M54.9 ; Neuropathy G62.9 and Gastroparesis K31.84 [facility] [id number] [place] [address] 79230- 1093 Jun, [facility] [id number] [place] [address] 51068- 2102 Jun, Other dorsalgia M54.89 [facility] [id number] [place] [address] 61993- 4329 May, [facility] [id number] [place] [address] 38735- 1678 May, Radicular leg pain M54.10 and Other dorsalgia M54.89 [facility] [address] [place] [address] 71317- 8416 Apr, [facility] [id number] [place] [address] 79661- 8892 Mar, [facility] [id number] [place] [address] 28388- 3418 Mar, [facility] [id number] [place] [address] 29147- 1042 Mar, Radicular leg pain M54.10 [facility] [id number] [place] [address] 04011- 0269 Feb, [facility] [address], [place] [address]- 5602 Feb, [facility] [id number] [place] [address] 42343- 2230 Feb, [facility] [id number] [place] [address] [id number]- 9381 Jan, [facility] [id number] [place] [address] 67885- 5594 Jan, IBS (irritable bowel syndrome) 564.1 [facility] [id number] [place] [address] 95991- 5848 Jan, [facility] [id number] [place] [address] 87145- 4612 Jan, [facility] [id number] [place] [address] 47776- 3380 Jan, Diabetes mellitus without mention of complication, type II or unspecified type, not stated as uncontrolled 250.00 ; Gastroparesis 536.3 and Hypoacusis 389.9 [facility] [id number] [place] [address] 70594- 2019 Jan, [facility] [id number] [place] [address] 38110- 2003 Jan, [facility] [id number] [place] [address] 95542- 3664 Dec, [facility] [id number] [place] [address] 07579- 9351 Dec, [facility] [id number] [place] [address] [id number]- 6703 Dec, [facility] [id number] [place] [address] 03088- 8884 Dec, Back pain 724.5 and Gastroparesis 536.3 [facility] [id number] [place] [address] 62261- 5014 Nov, [facility] [id number] [id number] Nov, Dental examination V72.2 [facility] [id number], [place] [address] 5356 Nov, [facility] [id number], [place] [address] 0590 Nov, [facility] [id number] [place] [address] [id number]- 6764 Nov, Depressive disorder, not elsewhere classified 311 and No condition on [place] II V71.09 [facility] [id number] [place] [address] 34442- 2586 Nov, Diabetes 250.00 and Symptomatic menopausal or female climacteric states 627.2 [facility] [id number], [place] [address] 4387 Oct, [facility] [id number], [place] [address] 0778 Oct, Lumbar strain 847.2 [facility] [id number], [place] [address] 4307 Oct, Gastroparesis 536.3 and Unspecified myalgia and myositis 729.1 [facility] [id number], [place] [address] 3448 Aug, [facility] [id number] [address] 0055 Aug, [facility] [id number] [place] [address]- 8345 Jul, [facility] [id number] [address] 9127 Jul, [facility] [address] [id number] [address] Jul, [facility] [place] [facility] [address] [id number] [place] [address] Jul, [facility] [place] [facility] [address] [id number] [place] [address] Jul, [facility] [place] [facility] [address] [id number] [place] [address] Jun, [facility] [place] [facility] [address] [id number] [place] [address] Jun, [facility] [place] [facility] [address] [id number] [place] [address] Jun, [facility] [place] [facility] [address] [id number] [place] [address] May, [facility] [place] [facility] [address] [id number] [place] [address] May, [facility] [place] [facility] [address] [id number] [place] [address] Mar, [facility] [place] [facility] [address] [id number] [place] [address] Mar, [facility] [place] [facility] [address] [id number] [place] [address] Mar, [facility] [place] [facility] [address] [id number] [place] [address] Mar, [facility] [place] [facility] [address] [id number] [place] [address] Mar, [facility] [place] [facility] [address] [id number] [place] [address] Mar, [facility] [place] [facility] [address] [id number] [place] [address] Feb, [facility] [place] [facility] [address] [id number] [place] [address] Feb, [facility] [place] [facility] [address] [id number] [place] [address] Nov, [facility] [address] [id number] [place] [address] Nov, [facility] [place] [facility] [address] [id number] [place] [address] Nov, [facility] [address] [id number] [place] [address] Oct, [facility] [place] [facility] [address] [id number] [place] [address] September, [facility] [address] [id number] [place] [address] Aug, [facility] [address] [id number] [place] [address] Aug, [facility] [address] [id number] [place] [address] Aug, [facility] [place] [facility] [address] [id number] [place] [address] Aug, [facility] [address] [id number] [place] [address] Aug, [facility] [place] [facility] [address] [id number] [place] [address] Aug, [facility] [place] [facility] [address] [id number] [place] [address] Aug, [facility] [place] [facility] [address] [id number] [place] [address] Aug, [facility] [place] [facility] [address] [id number] [place] [address] Jul, [facility] [place] [facility] [address] [id number] [place] [address] Jul, [facility] [place] [facility] [address] [id number] [place] [address] Jun, [facility] [place] [facility] [address] [id number], [place] [address] 11 Jun, 2012 [facility] [id number], [place] [address] Jun, [facility] [id number], [place] [address] 08 Jun, 2012 [facility] [id number], [place] [address] Jun, [facility] [id number], [place] [address] Jun, [facility] [id number] [place] [address] Jun, [facility] [id number], [place] [address] May, [facility] [id number], [place] [address] May, [facility] [id number], [place] [address] May, [facility] [id number], [place] [address] May, [facility] [id number], [place] [address] Mar, [facility] [id number], [place] [address] Mar, [facility] [address] [id number], [place] [address] 24 Jan, 2012 IMMUNIZATIONS No Known Immunizations [...]
--- OUTSIDE RECORDS SUMMARY | 2018-01-27 20:31 | XMS REPORT ---
Author Author HORACE HIGGINS [facility] Address [address] [place] [address] Care Team Providers Care Facilities Locator Name Role Phone HORACE HIGGINS Unavailable PROBLEMS Type Condition ICD9-CM Code [id number] Code Onset Dates Condition Status SNOMED Code Problem Weight loss R63.4 Active 084170873 Problem Primary insomnia F51.01 Active 6365148 Problem History of colon polyps Z86.010 Active 144616887 Problem Annual physical exam Z00.00 Active 290108158 Problem Migraine without aura and without status migrainosus, not intractable G43.009 Active 678473498 Problem Reactive depression F32.9 Active 88509798 Problem Asthma exacerbation J45.901 Active 997142659 Problem PTSD (post-traumatic stress disorder) F43.10 Active 97794114 Problem Diabetic polyneuropathy associated with type 2 diabetes mellitus E11.42 Active 81131289 Problem Neuropathy G62.9 Active 945754647 Problem Diabetes E11.9 Active 44417781 Problem Low TSH level R94.6 Active 932449666 Problem Back pain M54.9 Active 721489164 Problem Mixed hyperlipidemia E78.2 Active 765915071 Problem Type 2 diabetes mellitus with diabetic autonomic (poly)neuropathy E11.43 Active 95670169 Problem Gastroparesis K31.84 Active 030613015 Problem Uncomplicated asthma, unspecified asthma severity J45.909 Active 573257628 Problem 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 Active 522293546 Problem Anorexia R63.0 Active 45755473 ALLERGIES No Information ENCOUNTERS Encounter Location Date Diagnosis [facility] [address] [address] Oct, [facility] [id number] [address] Oct, [facility] [address] [place] [address] 29401- 1361 Oct, Other dorsalgia M54.89 [facility] [place] [id number] [place] [address] 82042- 1808 Oct, Anorexia R63.0 [facility] [address] 21638- 6717 September, PTSD (post-traumatic stress disorder) F43.10 [facility] [address] 07330- 6650 September, Low TSH level R94.6 [facility] [address] 00492- 7619 September, Other dorsalgia M54.89 [facility] [address] 56537- 4909 September, Annual physical exam Z00.00 and Migraine without aura and without status migrainosus, not intractable G43.009 [facility] [address] 10315- 1787 September, Abnormal TSH R94.6 and Dysfunction of left eustachian tube H69.82 [facility] [address] 04127- 2696 Aug, [facility] [address] 12713- 8817 Aug, Anorexia R63.0 [facility] [address] [id number] Aug, Dental examination Z01.20 and Xerostomia K11.7 [place] [address] 05121- 8911 Aug, Neuropathy G62.9 [facility] [address] 09220- 1479 Aug, [facility] [address] 63155- 9286 Aug, Other dorsalgia M54.89 [facility] [id number] [place] [address] 37151 2546 16 Aug, 2017 Type 2 diabetes mellitus with diabetic autonomic (poly) neuropathy E11.43 ; Diabetic polyneuropathy associated with type 2 diabetes mellitus E11.42 ; Bronchitis J40 ; Gastroparesis K31.84 and Reactive depression F32.9 [facility] [address] 75712 2546 Aug, PTSD (post-traumatic stress disorder) F43.10 [facility] [id number] [place] [address] 99949 2546 Aug, Other dorsalgia M54.89 and Anorexia R63.0 [facility] [address] 23629 2546 Jul, [facility] [address] 48466 2546 Jul, Other dorsalgia M54.89 [facility] [id number] [place] [address] 60476 2546 Jul, [facility] [address] 26103 2546 Jul, [facility] [id number] [place] [address] 51507 2546 Jul, PTSD (post-traumatic stress disorder) F43.10 [facility] [id number] [place] [address] 99924 2546 Jul, [facility] [id number] [place] [address] 28822 2546 Jul, [facility] [id number] [place] [address] 90055 2546 Jul, [facility] [id number] [place] [address] 93240 2546 Jul, Anorexia R63.0 [facility] [address] [place] [address] 06[address] Jun, [facility] [id number] [place] [address] 66250- 0749 Jun, Vaginal discharge N89.8 ; Visit for gynecologic examination Z01.419 and Pelvic pressure in female R10.2 [facility] [address] 39232- 8016 Jun, [facility] [address] 58923- 3563 Jun, Other dorsalgia M54.89 [facility] [address] 78072- 6646 Jun, [facility] [address] 14282- 0386 Jun, [facility] [address] 72572- 2352 Jun, [facility] [id number] [place] [address] 46258- 2441 May, Back pain M54.9 [facility] [address] 46708- 8826 May, Anorexia R63.0 [facility] [id number] [place] [address] 48222- 7096 May, Other dorsalgia M54.89 [facility] [id number] [place] [address] 34197- 8153 May, [facility] [id number] [place] [address] 35910- 5806 May, Bronchitis J40 [facility] [id number] [place] [address] 17733- 1768 May, Type 2 diabetes mellitus with diabetic autonomic (poly) neuropathy E11.43 ; 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 ; Back pain M54.9 and Neuropathy G62.9 [facility] [id number] [place] [address] 53709- 9890 May, Left breast mass N63.20 [facility] [id number] [place] [address] 33153- 4166 May, [facility] [id number] [place] [address] 32350- 8743 Apr, Other dorsalgia M54.89 [facility] [id number] [place] [address] 31439- 3272 Apr, Anorexia R63.0 [facility] [address] 44891- 4706 Apr, Anorexia R63.0 [facility] [id number] [place] [address] 41668- 1581 Apr, Mass of left breast N63.20 [facility] [id number] [place] [address] 96858- 9379 Apr, [facility] [id number] [place] [address] 55110- 1541 Apr, [facility] [id number] [place] [address] 44783- 9394 Apr, Diarrhea of presumed infectious origin A09 [facility] [id number] [place] [address] 74738- 5930 Apr, Encounter for immunization Z23 [facility] [id number] [place] [address] 09040- 4840 Apr, [facility] [id number] [place] [address] 47887- 7140 Mar, Other dorsalgia M54.89 [facility] [id number] [place] [address] 71517- 3258 Mar, [facility] [id number] [place] [address] 80744- 8098 Mar, [facility] [id number] [place] [address] 62619- 4292 Mar, Anorexia R63.0 [facility] [address] 83737- 8156 Mar, [facility] [id number] [place] [address] 11088- 5005 Mar, Other dorsalgia M54.89 [facility] [address] 08239- 8763 Mar, [facility] [address] 80612- 9366 Mar, Encounter for immunization Z23 [facility] [address] 75018- 9100 Feb, Anorexia R63.0 [facility] [address] 76013- 0509 Feb, Diabetes E11.9 [facility] [address] 89209- 4164 Feb, Back pain M54.9 and Diabetes E11.9 [facility] [id number] [place] [address] 52120- 4424 Feb, Diabetes E11.9 [facility] [id number] [place] [address] 71513- 9327 Feb, Neuropathy G62.9 [facility] [id number] [place] [address] 24590- 2383 Feb, Encounter for immunization Z23 ; Epigastric pain R10.13 ; Weight loss, abnormal R63.4 and Neuropathy G62.9 [facility] [address] [id number] Feb, [facility] [id number] [place] [address] 87762- 7803 Feb, [facility] [address] [place] [address]- 1591 Feb, Intractable vomiting with nausea, unspecified vomiting type R11.2 [facility] [address] 87198 -8788 Feb, Chronic nausea R11.0 [facility] [address] 23775- 8362 Feb, Other dorsalgia M54.89 [facility] [address] 83297- 4255 Jan, [facility] [address] 12925- 6882 Jan, [facility] [address] 09276- 7162 Jan, [facility] [address] 98670- 5849 Jan, [facility] [address] 28951- 4421 Jan, Asthma exacerbation J45.901 ; Bronchitis J40 and Neuropathy G62.9 [facility] [address] 11172- 1638 Jan, Anorexia R63.0 [facility] [id number] [place] [address] 27252- 7995 Jan, Other dorsalgia M54.89 [facility] [id number] [place] [address] 56925- 5487 Dec, [facility] [id number] [place] [address] 95372- 2714 Dec, [facility] [address] 34945- 6235 Dec, Anorexia R63.0 [facility] [address] 75796- 0194 14 Dec, 2016 Primary insomnia F51.01 [facility] [id number] [place] [address] 35418- 0830 Dec, Other dorsalgia M54.89 [facility] [id number] [place] [address] 43781- 4721 Dec, [facility] [id number] [place] [address] 33552- 3471 Nov, [facility] [address] 86045- 3586 Nov, [facility] [id number] [place] [address] 43246- 5759 Nov, [facility] [id number] [place] [address] 94566- 6437 Nov, History of colon polyps Z86.010 [facility] [id number] [place] [address] 53168- 6454 Nov, Weight loss R63.4 ; Nausea and vomiting, intractability of vomiting not specified, unspecified vomiting type R11.2 and Abnormal LFTs R79.89 [facility] [id number] [place] [address] 59798- 1324 Nov, [facility] [id number] [place] [address] 94570- 0105 Nov, Neuropathy G62.9 and Pain in right knee M25.561 [facility] [id number] [place] [address] 51033- 3757 Nov, Back pain M54.9 [facility] [id number] [place] [address] 93515- 5794 Nov, [facility] [id number] [place] [address] 71773- 6951 Nov, Bronchitis J40 [facility] [id number] [place] [address] 74411- 4714 Nov, Weight loss R63.4 [place] [address] [place] [address] 35756- 2218 16 Oct, 2016 Back pain M54.9 [facility] [id number] [place] [address] 97230- 2772 16 Oct, 2016 [facility] [id number] [place] [address] 77755- 3338 14 Oct, 2016 Back pain M54.9 [facility] [id number] [place] [address] 65619- 0603 13 Oct, 2016 Type 2 diabetes mellitus without complications E11.9 and Bronchitis J40 [facility] [id number] [place] [address] 73598- 9253 Oct, [facility] [id number] [place] [address] 90651- 9471 Oct, [facility] [id number] [place] [address] 87249- 8336 September, Gastroparesis K31.84 ; Type 2 diabetes mellitus with diabetic autonomic (poly)neuropathy E11.43 and Neuropathy G62.9 [facility] [id number] [place] [address] 51659- 0050 September, Other dorsalgia M54.89 [facility] [id number] [place] [address] 78728- 7376 September, [facility] [id number] [place] [address] 96044- 1601 September, [facility] [id number] [place] [address] 74067- 2004 Aug, Gastroparesis K31.84 and Radicular leg pain M54.10 [facility] [id number] [place] [address] 29453- 0600 Aug, Anorexia R63.0 [facility] [id number] [place] [address] 78324- 5275 20 Apr, 2017 Bronchitis J40 [facility] [address] [place] [address] 95288- 4415 Aug, Back pain M54.9 [facility] [facility] [address] 46946- 7733 Aug, Routine gynecological examination Z01.419 ; Routine screening for STI (sexually transmitted infection) Z11.3 and Yeast infection of the vagina B37.3 [facility] [address] 95833- 8703 Jul, Other dorsalgia M54.89 [facility] [id number] [place] [address] 41668- 4754 Jul, Diabetes E11.9 and Gastroparesis K31.84 [facility] [address] 70649- 6859 Jun, [facility] [address] [place] [address] 62791- 5111 Jun, Back pain M54.9 [facility] [id number] [place] [address] 80554- 7494 14 Jun, 2016 Neuropathy G62.9 [facility] [address] [id number] 02 Jun, 2016 Encounter for dental examination Z01.20 [facility] [id number] [place] [address] 64516- 3368 Jun, Gastroparesis 536.3 and Anorexia R63.0 [facility] [id number] [place] [address] 09322- 2542 May, Other dorsalgia M54.89 [facility] [id number] [place] [address] 39654- 4428 May, Periumbilical abdominal pain R10.33 ; Weight loss R63.4 and Gastroparesis K31.84 [facility] [id number] [place] [address] 68941- 8514 May, Back pain M54.9 [facility] [id number] [place] [address] 19098 2546 Apr, Anorexia R63.0 [facility] [id number] [place] [address] 82976 2546 Apr, Anorexia R63.0 [facility] [id number] [place] [address] 30522 2546 Apr, Back pain M54.9 [facility] [id number] [place] [address] 28377- 2546 15 Apr, 2016 Back pain M54.9 [facility] [id number] [place] [address] 86634 2546 Apr, [facility] [id number] [place] [address] 52278 2546 Apr, Bronchitis J40 and Neuropathy G62.9 [facility] [id number] [place] [address] 13146 2546 Apr, Neuropathy G62.9 [facility] [id number] [place] [address] 16668 2546 Apr, [facility] [id number] [place] [address] 56890 2546 Apr, Back pain M54.9 [facility] [id number] [place] [address] 74444 2546 Mar, Type 2 diabetes mellitus with diabetic autonomic (poly) neuropathy E11.43 [facility] [id number] [place] [address] 62508 2546 Mar, Type 2 diabetes mellitus without complications E11.9 [facility] [id number] [place] [address] 25817 2546 Mar, Neuropathy G62.9 [facility] [id number] [place] [address] 01216 2546 Mar, [facility] [id number] [place] [address] 77667- 2887 Mar, Breast cancer screening Z12.39 [facility] [id number] [place] [address] 91362- 3148 Mar, Other dorsalgia M54.89 [facility] [id number] [place] [address] 14111- 1140 Feb, [facility] [id number] [place] [address] 80006- 9765 30 Jan, 2016 Neuropathy G62.9 ; Type 2 diabetes mellitus with diabetic autonomic (poly)neuropathy E11.43 ; Uncomplicated asthma, unspecified asthma severity J45.909 and Encounter for immunization Z23 [facility] [id number] [place] [address] 22637- 8337 Jan, [place] [address] 46057- 5880 Jan, [facility] [id number] [place] [address] 29114- 0836 Dec, [facility] [id number] [place] [address] 77533- 5624 Dec, [facility] [id number] [place] [address] 33568- 2046 Nov, [place] [id number] [place] [address] 96207- 3533 Nov, Back pain M54.9 [facility] [id number] [place] [address] 80682- 5140 Nov, Neuropathy G62.9 ; Mixed hyperlipidemia E78.2 ; Type 2 diabetes mellitus with diabetic autonomic (poly)neuropathy E11.43 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 [facility] [id number] [place] [address] 64073- 1789 Oct, [facility] [address] 95236- 8135 Oct, Other dorsalgia M54.89 [facility] [id number] [place] [address] 40092- 7723 September, Primary insomnia F51.01 [facility] [id number] [place] [address] 33279- 8860 September, [facility] [id number] [place] [address] 36944- 2351 Aug, Other dorsalgia M54.89 [facility] [id number] [place] [address] 62863- 6954 Jul, [facility] [id number] [place] [address] 49136- 6266 Jul, Other dorsalgia M54.89 [facility] [id number] [place] [address] 23217- 4820 Jul, Diabetes E11.9 ; Back pain M54.9 ; Neuropathy G62.9 and Gastroparesis K31.84 [facility] [id number] [place] [address] 86063- 0218 Jun, [facility] [id number] [place] [address] 04197- 8483 Jun, Other dorsalgia M54.89 [facility] [id number] [place] [address] 11754- 8509 May, [facility] [id number] [place] [address] 55338- 3850 May, Radicular leg pain M54.10 and Other dorsalgia M54.89 [facility] [id number] [place] [address] 55307- 2319 Apr, [facility] [id number] [place] [address] 15986- 5976 Mar, [facility] [id number] [place] [address] 29943- 2241 Mar, [facility] [address] [address]- 1943 Mar, Radicular leg pain M54.10 [facility] [address] [place] [address] 230634- 3519 Feb, [facility] [id number] [place] [address] 719117- 2225 Feb, [facility] [id number] [place] [address] 763211- 9939 Feb, [facility] [id number] [place] [address] 994994- 0956 Jan, [facility] [id number] [place] [address] 96162- 2810 Jan, IBS (irritable bowel syndrome) 564.1 [facility] [id number] [place] [address] 22885- 4110 Jan, [facility] [id number] [place] [address] 90675- 4843 Jan, [facility] [id number] [place] [address] 29343- 0295 Jan, Diabetes mellitus without mention of complication, type II or unspecified type, not stated as uncontrolled 250.00 ; Gastroparesis 536.3 and Hypoacusis 389.9 [facility] [id number] [place] [address] 88089- 5821 Jan, [facility] [id number] [place] [address] 68592- 6157 Jan, [facility] [id number] [place] [address] 803032- 1344 Dec, [facility] [id number] [place] [address] 598015- 2195 Dec, [facility] [id number] [place] [address] 30545- 4421 Dec, [facility] [address] [address]- 7515 Dec, Back pain 724.5 and Gastroparesis 536.3 [facility] [address] [address]- 8539 Nov, [facility] [address] [id number] Nov, Dental examination V72.2 [facility] [address] [place] [address] Nov, [facility] [id number] [place] [address] Nov, [facility] [id number] [place] [address] Nov, Depressive disorder, not elsewhere classified 311 and No condition on Lugoff II V71.09 [facility] [address] [address] Nov, Diabetes 250.00 and Symptomatic menopausal or female climacteric states 627.2 [facility] [address] [address] Oct, [facility] [address] [address] Oct, Lumbar strain 847.2 [facility] [address] [address] Oct, Gastroparesis 536.3 and Unspecified myalgia and myositis 729.1 [facility] [id number] [place] [address] Aug, [facility] [address] [address] Aug, [facility] [id number] [place] [address] Jul, [facility] [place] [facility] [address] [id number] [place] [address] Jul, [facility] [place] [facility] [address] [id number] [place] [address] Jul, [facility] [place] [facility] [address] [id number] [place] [address] Jul, [facility] [place] [facility] [address] [id number] [place] [address] Jul, [facility] [place] [facility] [address] [id number] [place] [address] Jun, [facility] [place] [facility] [address] [id number] [place] [address] Jun, [facility] [place] [facility] [address] [id number] [place] [address] Jun, [facility] [place] [facility] [address] [id number] [place] [address] May, [facility] [place] [facility] [address] [id number] [place] [address] May, [facility] [place] [facility] [address] [id number] [place] [address] Mar, [facility] [place] [facility] [address] [id number] [place] [address] Mar, [facility] [place] [facility] [address] [id number] [place] [address] Mar, [facility] [place] [facility] [address] [id number] [place] [address] Mar, [facility] [place] [facility] [address] [id number] [place] [address] Mar, [facility] [place] [facility] [address] [id number] [place] [address] Mar, [facility] [place] [facility] [address] [id number] [place] [address] Feb, [facility] [address] [id number] [place] [address] Feb, [facility] [facility] [address] [id number] [place] [address] Nov, [facility] [address] [id number] [place] [address] Nov, [facility] [address] [id number] [place] [address] Nov, [facility] [address] [id number] [place] [address] Oct, [facility] [address] [id number] [place] [address] September, [facility] [address] [id number] [place] [address] Aug, [facility] [address] [id number] [place] [address] Aug, [facility] [address] [id number] [place] [address] Aug, [facility] [address] [id number] [place] [address] Aug, [facility] [address] [id number] [place] [address] Aug, [facility] [address] [id number] [place] [address] Aug, [facility] [address] [id number] [place] Aug, [facility] [address] [id number] [place] [id number] Aug, [facility] [address] [id number] [place] [address] Jul, [facility] [address] [facility] [id number] [place] [address] 04 Jul, 2012 [facility] [address] [facility] [id number] [place] [address] Jun, [facility] [address] [facility] [id number] [place] [address] Jun, [facility] [address] [facility] [id number] [place] [address] Jun, [facility] [address] [facility] [id number] [place] [address] 08 Jun, 2012 [facility] [address] [facility] [id number] [address] Jun, [facility] [id number] [place] [address] Jun, [facility] [address] [id number] [address] Jun, [facility] [id number] [address] May, [facility] [address] [id number] [address] May, [facility] [id number] [address] May, [facility] [address] [facility] [id number] [address] May, [facility] [id number] [address] Mar, [facility] [address] [id number] [address] Mar, [facility] [address] [id number] [address] 24 Jan, 2012 IMMUNIZATIONS No Known Immunizations SOCIAL HISTORY Never Assessed REASON FOR VISIT Oxycodone 05/23 PLAN OF CARE VITAL SIGNS MEDICATIONS Medication [...] vomitting-[facility] 03/05/17 Hospitalization History hospital stay at [facility] for stomach issues 2016
--- OUTSIDE RECORDS SUMMARY | 2018-01-27 20:32 | XMS REPORT ---
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 Name Role Phone HORACE HIGGINS Unavailable PROBLEMS Type Condition ICD9-CM Code NKE03-UC Code Onset Dates Condition Status SNOMED Code Problem Weight loss R63.4 Active 960547663 Problem Primary insomnia F51.01 Active 6690301 Problem History of colon polyps Z86.010 Active 237002755 Problem Annual physical exam Z00.00 Active 157524620 Problem Migraine without aura and without status migrainosus, not intractable G43.009 Active 619155046 Problem Reactive depression F32.9 Active 74016886 Problem Asthma exacerbation J45.901 Active 429129025 Problem PTSD (post-traumatic stress disorder) F43.10 Active 11858622 Problem Diabetic polyneuropathy associated with type 2 diabetes mellitus E11.42 Active 47453016 Problem Neuropathy G62.9 Active 830116865 Problem Diabetes E11.9 Active 51511688 Problem Low TSH level R94.6 Active 660389866 Problem Back pain M54.9 Active 547478603 Problem Mixed hyperlipidemia E78.2 Active 990803237 Problem Type 2 diabetes mellitus with diabetic autonomic (poly)neuropathy E11.43 Active 55081850 Problem Gastroparesis K31.84 Active 561131784 Problem Uncomplicated asthma, unspecified asthma severity J45.909 Active 839835068 Problem 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 Active 445024565 Problem Anorexia R63.0 Active 85886419 ALLERGIES No Information ENCOUNTERS Encounter Location Date Diagnosis [facility] [place] [address], [place] [address] September, [facility] [place] [id number], [place] [address] September, [facility] [place] [address] [place] [address] 49150- 2800 September, Low TSH level R94.6 [place] [address] 188840- 2743 September, Other dorsalgia M54.89 [place] [address] [id number]- [address]75 September, Annual physical exam Z00.00 and Migraine without aura and without status migrainosus, not intractable G43.009 [place] [address] [id number]- 2935 September, Abnormal TSH R94.6 and Dysfunction of left eustachian tube H69.82 [place] [address] [address] Aug, [place] [address] [address]75- [address]89 Aug, Anorexia R63.0 [facility] [address] [id number] Aug, Dental examination Z01.20 and Xerostomia K11.7 [place] [address] 51051- 0379 Aug, Neuropathy G62.9 [place] [address] 28572- 4055 Aug, [place] [address] 09704- 0375 Aug, Other dorsalgia M54.89 [place] [address] 57492- 6326 Aug, Type 2 diabetes mellitus with diabetic autonomic (poly) neuropathy E11.43 ; Diabetic polyneuropathy associated with type 2 diabetes mellitus E11.42 ; Bronchitis J40 ; Gastroparesis K31.84 and Reactive depression F32.9 [place] [address] 84793- 6089 Aug, PTSD (post-traumatic stress disorder) F43.10 [facility] [place] [address], [place] [address] 2546 Aug, Other dorsalgia M54.89 and Anorexia R63.0 [facility] [place] [id number] [place] [address] 52935 2546 Jul, [facility] [place] [id number] [place] [address] 50668 2546 Jul, Other dorsalgia M54.89 [facility] [place] [id number] [place] [address] 14176 2546 Jul, [facility] [place] [id number] [place] [address] 43080 2546 Jul, [facility] [place] [id number] [place] [address] 21909 2546 Jul, PTSD (post-traumatic stress disorder) F43.10 [facility] [place] [id number] [place] [address] 65893 2546 Jul, [facility] [place] [id number] [place] [address] 30079 2546 Jul, [facility] [place] [id number] [place] [address] 69170 2546 Jul, [facility] [place] [id number] [place] [address] 55067 2546 Jul, Anorexia R63.0 [facility] [place] [id number] [place] [address] 93161 2546 Jun, [facility] [place] [id number] [place] [address] 15218 2546 Jun, Vaginal discharge N89.8 ; Visit for gynecologic examination Z01.419 and Pelvic pressure in female R10.2 [facility] [place] [address] [address] 2546 Jun, [facility] [place] [id number] [place] [address] 43707- 4154 Jun, Other dorsalgia M54.89 [facility] [place] [id number] [place] [address] 45880- 1096 Jun, [facility] [place] [id number] [place] [address] 75780- 4388 Jun, [facility] [place] [address] 67264- 2473 Jun, [facility] [place] [address] 45773- 1405 May, Back pain M54.9 [facility] [place] [address] 19117- 6155 May, Anorexia R63.0 [facility] [place] [address] 47318- 4367 May, Other dorsalgia M54.89 [facility] [place] [id number] [place] [address] 68366- 6930 May, [facility] [place] [address] 47527- 6096 May, Bronchitis J40 [facility] [place] [id number] [place] [address] 16620- 3706 May, Type 2 diabetes mellitus with diabetic autonomic (poly) neuropathy E11.43 ; 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 ; Back pain M54.9 and Neuropathy G62.9 [facility] [place] [id number] [place] [address] 19460- 0998 May, Left breast mass N63.20 [facility] [place] [id number] [place] [address] 57223- 8304 May, [facility] [place] [id number] [place] [address] 24954- 7446 Apr, Other dorsalgia M54.89 [facility] [place] [id number] [place] [address] 84323- 2084 Apr, Anorexia R63.0 [facility] [place] [address] 99821- 1136 Apr, Anorexia R63.0 [facility] [place] [id number] [place] [address] 56342- 1721 Apr, Mass of left breast N63.20 [facility] [place] [address] 37877- 5566 Apr, [facility] [place] [address] 18761- 0449 Apr, [facility] [place] [address] 78279- 9778 Apr, Diarrhea of presumed infectious origin A09 [facility] [place] [address] 27820- 4575 Apr, Encounter for immunization Z23 [facility] [place] [address] 93164- 7851 Apr, [facility] [place] [address] 42731- 0869 Mar, Other dorsalgia M54.89 [facility] [place] [id number] [place] [address] 01343- 4707 Mar, [facility] [place] [id number] [place] [address] 73746- 2978 Mar, [facility] [place] [id number] [place] [address] 02730 2544 Mar, Anorexia R63.0 [facility] [place] [address] 18561- 0216 Mar, [facility] [place] [id number] [place] [address] 51655- 6258 Mar, Other dorsalgia M54.89 [facility] [place] [address] [place] [address]- 8732 Mar, [facility] [place] [id number] [place] [address] 42344- 4972 Mar, Encounter for immunization Z23 [facility] [place] [id number] [place] [address] 87190- 2268 Feb, Anorexia R63.0 [facility] [place] [address] 18628- 1186 Feb, Diabetes E11.9 [facility] [place] [address] 35220- 7145 Feb, Back pain M54.9 and Diabetes E11.9 [facility] [place] [id number] [place] [address] 43463- 6996 Feb, Diabetes E11.9 [facility] [place] [id number] [place] [address] 34966- 0893 Feb, Neuropathy G62.9 [facility] [place] [id number] [place] [address] 10415- 6340 Feb, Encounter for immunization Z23 ; Epigastric pain R10.13 ; Weight loss, abnormal R63.4 and Neuropathy G62.9 [facility] [id number] [place] [address] [id number] Feb, [facility] [place] [id number] [place] [address] 86727- 5325 Feb, [facility] [place] [id number] [place] [address] 62249- 6865 Feb, Intractable vomiting with nausea, unspecified vomiting type R11.2 [facility] [id number] [place] [address] 79332 -5157 Feb, Chronic nausea R11.0 [facility] [place] [address] [place] [address] 24125- 2675 Feb, Other dorsalgia M54.89 [facility] [place] [address], [place] [address] 2546 Jan, [facility] [place] [id number] [place] [address] 89107 2546 Jan, [facility] [place] [id number] [place] [address] 55166 2546 Jan, [facility] [place] [id number] [place] [address] 45982 2546 Jan, [facility] [place] [id number] [place] [address] 06929 2546 Jan, Asthma exacerbation J45.901 ; Bronchitis J40 and Neuropathy G62.9 [facility] [place] [id number] [place] [address] 19673 2546 Jan, Anorexia R63.0 [facility] [place] [id number] [place] [address] 37124 2546 Jan, Other dorsalgia M54.89 [facility] [place] [id number] [place] [address] 28795 2546 Dec, [facility] [place] [id number] [place] [address] 36863 2546 Dec, [facility] [place] [id number] [place] [address] 52766 2546 Dec, Anorexia R63.0 [facility] [place] [id number] [place] [address] 71552 2546 14 Dec, 2016 Primary insomnia F51.01 [facility] [place] [id number] [place] [address] 23553 2546 Dec, Other dorsalgia M54.89 [facility] [place] [id number] [place] [address] 59061 2546 Dec, [facility] [place] [id number] [place] [address] 32025 2546 Nov, [facility] [place] [id number] [place] [address] 96291- 7310 Nov, [facility] [place] [id number] [place] [address] 62431- 6329 Nov, [facility] [place] [address] 42621- 4622 Nov, History of colon polyps Z86.010 [facility] [place] [address] 84803- 9658 Nov, Weight loss R63.4 ; Nausea and vomiting, intractability of vomiting not specified, unspecified vomiting type R11.2 and Abnormal LFTs R79.89 [facility] [place] [address] 79515- 0075 Nov, [facility] [place] [address] 82817- 0120 Nov, Neuropathy G62.9 and Pain in right knee M25.561 [facility] [place] [address] 30055- 4286 Nov, Back pain M54.9 [facility] [place] [address] 77478- 3005 Nov, [facility] [place] [address] 17359- 0386 Nov, Bronchitis J40 [facility] [place] [id number] [place] [address] 10163- 8932 Nov, Weight loss R63.4 [facility] [place] [id number] [place] [address] 13954- 2739 Oct, Back pain M54.9 [facility] [place] [address] 92470- 2684 Oct, [facility] [place] [address] 71911- 6279 14 Oct, 2016 Back pain M54.9 [facility] [place] [address] [place] [address]- 8033 Oct, Type 2 diabetes mellitus without complications E11.9 and Bronchitis J40 [place] [address] 68851- 0821 Oct, [facility] [place] [address] 88277- 7861 Oct, [place] [address] 22188- 2748 September, Gastroparesis K31.84 ; Type 2 diabetes mellitus with diabetic autonomic (poly)neuropathy E11.43 and Neuropathy G62.9 [place] [address] 96535- 7152 September, Other dorsalgia M54.89 [place] [address] 07511- 4679 September, [place] [address] 26584- 0968 September, [place] [address] 87936- 4170 Aug, Gastroparesis K31.84 and Radicular leg pain M54.10 [place] [id number] [place] [address] 01237- 0641 Aug, Anorexia R63.0 [place] [address] 06559- 5150 Aug, Bronchitis J40 [place] [id number] [place] [address] 02062- 5471 Aug, Back pain M54.9 [place] [address] 48449- 3284 Aug, Routine gynecological examination Z01.419 ; Routine screening for STI (sexually transmitted infection) Z11.3 and Yeast infection of the vagina B37.3 [place] [address] 78735- 9919 Jul, Other dorsalgia M54.89 [facility] [place] [id number] [place] [address] 72036- 8856 Jul, Diabetes E11.9 and Gastroparesis K31.84 [facility] [place] [id number] [place] [address] 46051- 7586 Jun, [facility] [place] [address] 84065- 8925 Jun, Back pain M54.9 [facility] [place] [id number] [place] [address] 86165- 5584 Jun, Neuropathy G62.9 [facility] [address] [id number] 02 Jun, 2016 Encounter for dental examination Z01.20 [facility] [place] [address] 38774- 2191 Jun, Gastroparesis 536.3 and Anorexia R63.0 [facility] [place] [id number] [place] [address] 54853- 0442 May, Other dorsalgia M54.89 [facility] [place] [id number] [place] [address] 85052- 2014 May, Periumbilical abdominal pain R10.33 ; Weight loss R63.4 and Gastroparesis K31.84 [facility] [place] [id number] [place] [address] 72565- 6170 May, Back pain M54.9 [facility] [place] [id number] [place] [address] 34448- 7205 Apr, Anorexia R63.0 [facility] [place] [address] 27171- 5650 Apr, Anorexia R63.0 [facility] [place] [id number] [place] [address] 93216- 5881 Apr, Back pain M54.9 [facility] [place] [id number] [place] [address] 46983- 0509 Apr, Back pain M54.9 [facility] [place] [id number] [place] [address] 79058- 1056 Apr, [facility] [place] [id number] [place] [address] 61904- 8816 Apr, Bronchitis J40 and Neuropathy G62.9 [facility] [place] [id number] [place] [address] 01106- 2252 Apr, Neuropathy G62.9 [facility] [place] [address] 47941- 1096 Apr, [facility] [place] [id number] [place] [address] 71950- 0937 Apr, Back pain M54.9 [facility] [place] [id number] [place] [address] 22605- 0935 Mar, Type 2 diabetes mellitus with diabetic autonomic (poly) neuropathy E11.43 [facility] [place] [id number] [place] [address] 99974- 3315 Mar, Type 2 diabetes mellitus without complications E11.9 [facility] [place] [id number] [place] [address] 88893- 4247 Mar, Neuropathy G62.9 [facility] [place] [id number] [place] [address] 43862- 8013 Mar, [facility] [place] [id number] [place] [address] 48629- 1248 Mar, Breast cancer screening Z12.39 [facility] [place] [id number] [place] [address] 68414- 8662 Mar, Other dorsalgia M54.89 [facility] [place] [id number] [place] [address] 65276- 9233 Feb, [facility] [place] [address] [id number] [address] 30 Jan, 2016 Neuropathy G62.9 ; Type 2 diabetes mellitus with diabetic autonomic (poly)neuropathy E11.43 ; Uncomplicated asthma, unspecified asthma severity J45.909 and Encounter for immunization Z23 [facility] [place] [id number] [place] [address] 50190- 4142 09 Jan, 2016 [facility] [place] [id number] [place] [address] 64366- 3973 Jan, [facility] [place] [id number] [place] [address] 21327- 0627 Dec, [facility] [place] [id number] [place] [address] 10972- 0014 Dec, [facility] [place] [id number] [place] [address] 15139- 8483 Nov, [facility] [place] [id number] [place] [address] 99077- 6664 Nov, Back pain M54.9 [facility] [place] [id number] [place] [address] 50356- 3744 Nov, Neuropathy G62.9 ; Mixed hyperlipidemia E78.2 ; Type 2 diabetes mellitus with diabetic autonomic (poly)neuropathy E11.43 and 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 [facility] [place] [id number] [place] [address] 65689- 4434 Oct, [facility] [place] [id number] [place] [address] 63106- 9733 Oct, Other dorsalgia M54.89 [facility] [place] [id number] [place] [address] 45951- 7457 September, Primary insomnia F51.01 [facility] [place] [id number] [place] [address] 68043- 2167 September, [facility] [place] [id number] [place] [address] 56701- 5228 Aug, Other dorsalgia M54.89 [facility] [place] [id number] [place] [address] 63804- 6053 Jul, [facility] [place] [id number] [place] [address] 91339- 8776 Jul, Other dorsalgia M54.89 [facility] [place] [id number] [place] [address] 47327- 7079 Jul, Diabetes E11.9 ; Back pain M54.9 ; Neuropathy G62.9 and Gastroparesis K31.84 [facility] [place] [id number] [place] [address] 94137- 3223 Jun, [facility] [place] [address] 02283- 7090 Jun, Other dorsalgia M54.89 [facility] [place] [id number] [place] [address] 16393- 2235 May, [facility] [place] [address] [id number] [place] [address] 65378- 7392 May, Radicular leg pain M54.10 and Other dorsalgia M54.89 [facility] [place] [id number] [place] [address] 68660- 8446 Apr, [facility] [place] [id number] [place] [address] 82814- 2246 Mar, [facility] [place] [id number] [place] [address] 06758- 2148 Mar, [facility] [place] [id number] [place] [address] 44934- 7621 Mar, Radicular leg pain M54.10 [facility] [place] [id number] [place] [address] 49942- 9548 Feb, [facility] [place] [id number] [place] [address] 51642- 2002 Feb, [facility] [place] [id number] [place] [address] 06256- 9955 Feb, [facility] [place] [id number] [place] [address] 01582- 7724 Jan, [facility] [place] [id number] [place] [address] 19397- 3793 Jan, IBS (irritable bowel syndrome) 564.1 [facility] [place] [id number] [place] [address] 73373- 3209 Jan, [facility] [place] [id number] [place] [address] 89899- 5865 Jan, [facility] [place] [id number] [place] [address] 58320- 0775 Jan, Diabetes mellitus without mention of complication, type II or unspecified type, not stated as uncontrolled 250.00 ; Gastroparesis 536.3 and Hypoacusis 389.9 [facility] [place] [id number] [place] [address] 27181- 3398 Jan, [facility] [place] [id number] [place] [address] 10662- 0439 Jan, [facility] [place] [id number] [place] [address] 03026- 7507 Dec, [facility] [place] [id number] [place] [address] 32632- 4023 Dec, [facility] [place] [id number] [place] [address] 16424- 4415 Dec, [facility] [place] [id number] [place] [address] 34147- 6808 Dec, Back pain 724.5 and Gastroparesis 536.3 [facility] [place] [id number] [place] [address] 89164- 3520 Nov, [facility] [id number] [place] [address] [id number] Nov, Dental examination V72.2 [facility] [place] [address] [place] [address] 8569 Nov, [facility] [place] [id number] [place] [address] 26375- 6189 Nov, [facility] [place] [id number] [place] [address] 70024- 7944 Nov, Depressive disorder, not elsewhere classified 311 and No condition on [place] II V71.09 [facility] [place] [id number] [place] [address] 31566- 8294 Nov, Diabetes 250.00 and Symptomatic menopausal or female climacteric states 627.2 [facility] [place] [id number] [place] [address] 82134- 1260 Oct, [facility] [place] [id number] [place] [address] 98251- 8441 Oct, Lumbar strain 847.2 [facility] [place] [id number] [place] [address] 21599- 1868 Oct, Gastroparesis 536.3 and Unspecified myalgia and myositis 729.1 [facility] [place] [address] [place] [address]- 4581 Aug, [facility] [place] [address] [place] [address]- 2471 Aug, [facility] [place] [address], [place] [address]- 1832 Jul, [facility] [place] [address] [place] [address]- 1757 Jul, [facility] [place] [id number] [place] [address] 14761- 7945 Jul, [facility] [place] [address] [address]- 5536 Jul, [facility] [place] [id number] [place] [address] 24433- 4956 Jul, [facility] [place] [facility] [address] [id number] [place] [address]- 4451 Jun, [facility] [place] [facility] [address] [id number] [place] [address]- 3487 Jun, [facility] [place] [facility] [address] [id number] [place] [address]- 8266 Jun, [facility] [place] [facility] [address] [id number] [place] [address]- 3560 May, [facility] [place] [facility] [address] [id number] [place] [address]- 2498 May, [facility] [place] [facility] [address] [id number] [place] [address]- 4109 Mar, [facility] [place] [facility] [address] [id number] [place] [address]- 3061 Mar, [facility] [place] [facility] [address] [id number] [place] [address]- 3413 Mar, [facility] [place] [facility] [address] [id number] [place] [address]- 4170 Mar, [facility] [place] [facility] [address] [facility] [id number] [place] [address]- 1092 Mar, [facility] [place] [facility] [address] [id number] [place] [address]- 5008 Mar, [facility] [place] [facility] [address] [id number] [place] [address]- 1507 Feb, [facility] [place] [facility] [address] [id number] [place] [address]- 4620 Feb, [facility] [place] [facility] [address] [id number] [place] 6053 Nov, [facility] [place] [facility] [address] [id number] [place] [address]- 9337 Nov, [facility] [place] [facility] [address] [id number] [place] [address]- 8303 Nov, [facility] [address] [id number] [place] [address]- 2891 Oct, [facility] [place] [facility] [address] [id number] [place] [address]- 4635 September, [facility] [address] [id number] [place] [address]- 6932 Aug, [facility] [address] [id number] [place] [address]- 8137 Aug, [facility] [place] [facility] [address] [id number] [place] [address]- 6244 Aug, [facility] [address] [id number] [place] [address]- 6191 Aug, [facility] [address] [id number] [place] [address]- 2862 Aug, [facility] [address] [id number] [place] [address]- 3759 Aug, [facility] [address] [id number] [place] [address]- 6674 Aug, [facility] [place] [facility] [address] [id number] [place] [address]- 9819 Aug, [facility] [place] [facility] [address] [id number] [place] [address]- 2758 Jul, [facility] [place] [facility] [address] [id number] [place] [address]- 5327 Jul, [facility] [place] [facility] [address] [id number] [place] [address]- 5285 Jun, [facility] [place] [facility] [address] [id number] [place] [address]- 0183 Jun, [facility] [place] [facility] [address] [id number] [address]- 0517 Jun, [facility] [place] [address], [place] [address]- 1625 Jun, [facility] [place] [address], [place] [address]- 4540 Jun, [facility] [place] [address], [place] [address]- 5410 Jun, [facility] [place] [address], [place] [address]- 6674 Jun, [facility] [place] [address], [place] [address]- 4640 May, [facility] [place] [address], [place] [address]- 5910 May, [facility] [place] [address], [place] [address]- 7688 May, [facility] [place] [address], [place] [address]- 3058 May, [facility] [place] [address], [place] [address]- 8269 Mar, [facility] [place] [address], [place] [address]- 4103 Mar, [facility] [place] [id number] [address]- 2487 Jan, IMMUNIZATIONS Vaccine Route Administration Date Status PPSV23 (PNEUMOVAX) IM Intramuscular Mar 26, 2017 Administered SOCIAL HISTORY Never Assessed REASON FOR VISIT Injection-Vinod RODRIGUEZ PLAN OF CARE VITAL SIGNS MEDICATIONS Unknown Medications RESULTS No Results PROCEDURES Procedure Date Ordered Result Body Site PPSV23 (PNEUMOVAX) Mar 26, 2017 ADMN PNEUMCOC VAC NO FEE SCHED DAY Mar 26, 2017 SINGLE IMMUNIZATION ADMIN Mar 26, 2017 INSTRUCTIONS MEDICATIONS ADMINISTERED No Known [...] vomitting-[facility] 03/05/17 Hospitalization History hospital stay at [facility] for stomach issues 2016
--- OUTSIDE RECORDS SUMMARY | 2018-01-27 20:34 | XMS REPORT ---
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 Active 684717453 Problem PTSD (post-traumatic stress disorder) F43.10 Active 71761420 Problem Asthma exacerbation J45.901 Active 275070064 Problem Weight loss R63.4 Active 497910441 Problem Anorexia R63.0 Active 32924211 Problem Primary insomnia F51.01 Active 0983402 Problem History of colon polyps Z86.010 Active 299389211 Problem Neuropathy G62.9 Active 355286144 Problem Diabetes E11.9 Active 23653645 Problem Depressive disorder, not elsewhere classified 311 Active 60290300 Problem Gastroparesis K31.84 Active 127493212 Problem Back pain M54.9 Active 255875639 Problem Mixed hyperlipidemia E78.2 Active 368164434 ALLERGIES No Information ENCOUNTERS Encounter Location Date Diagnosis [facility] [id number] [id number] Aug, [facility] [address], [place] [address] Aug, [facility] [id number] [place] [address] 42092- 3915 Aug, [facility] [address], [place] [address] 5749 Aug, [facility] [id number] [place] [address] 30622- 9677 Jul, [facility] [id number] [place] [address] 91902- 0746 Jul, Other dorsalgia M54.89 [facility] [id number] [place] [address] 35978- 0606 Jul, [facility] [id number] [place] [address] 34491 2546 Jul, [facility] [id number] [place] [address] 48550 2546 Jul, PTSD (post-traumatic stress disorder) F43.10 [facility] [id number] [place] [address] 48422- 1846 Jul, [facility] [id number] [place] [address] 71573- 9106 Jul, [facility] [id number] [place] [address] 98249- 5546 Jul, [facility] [id number] [place] [address] 81328 2546 Jul, Anorexia R63.0 [facility] [id number] [place] [address] 98579- 6226 Jun, [facility] [id number] [place] [address] 00485- 6606 Jun, Vaginal discharge N89.8 ; Visit for gynecologic examination Z01.419 and Pelvic pressure in female R10.2 [facility] [id number] [place] [address] 87888 2546 Jun, [facility] [id number] [place] [address] 09407- 9236 Jun, Other dorsalgia M54.89 [facility] [id number] [place] [address] 82176- 2706 16 Jun, 2017 [facility] [id number] [place] [address] 97945- 0144 Jun, [facility] [address] 23874- 1583 Jun, [facility] [address] 52939- 1232 May, Back pain M54.9 [facility] [address] 48565- 7588 May, Anorexia R63.0 [facility] [address] 73653- 3488 May, Other dorsalgia M54.89 [facility] [address] 25317- 9948 May, [facility] [address] 85783- 5227 May, Bronchitis J40 [facility] [address] 83608- 7097 May, Type 2 diabetes mellitus with diabetic autonomic (poly) neuropathy E11.43 ; intermediate current use of insulin Z79.4 ; Back pain M54.9 and Neuropathy G62.9 [facility] [id number] [place] [address] 26267- 8077 May, Left breast mass N63.20 [facility] [address] 12749- 8838 May, [facility] [id number] [place] [address] 44847- 2432 Apr, Other dorsalgia M54.89 [facility] [address] 56792- 1786 Apr, Anorexia R63.0 [facility] [address] 62042- 2784 Apr, Anorexia R63.0 [facility] [address] [place] [address]- 8329 Apr, Mass of left breast N63.20 [facility] [id number] [place] [address] 29971- 5217 Apr, [facility] [address] 97029- 7558 Apr, [facility] [address] 62276- 9264 Apr, Diarrhea of presumed infectious origin A09 [facility] [address] 73318- 3393 Apr, Encounter for immunization Z23 [facility] [address] 09389- 2917 Apr, [facility] [address] 62533- 1271 Mar, Other dorsalgia M54.89 [facility] [id number] [place] [address] 58191- 0565 Mar, [facility] [id number] [place] [address] 54781- 8370 Mar, [facility] [id number] [place] [address] 67877- 8950 Mar, Anorexia R63.0 [facility] [id number] [place] [address] 00965- 9617 Mar, [facility] [id number] [place] [address] 81755- 2544 Mar, Other dorsalgia M54.89 [facility] [id number] [place] [address] 38877- 4143 Mar, [facility] [id number] [place] [address] 53390- 6681 Mar, Encounter for immunization Z23 [facility] [address] 84271- 1933 Feb, Anorexia R63.0 [facility] [id number] [place] [address] 33460- 0660 Feb, Diabetes E11.9 [facility] [id number] [place] [address] 88826- 6683 Feb, Back pain M54.9 and Diabetes E11.9 [facility] [address] 26302- 8150 Feb, Diabetes E11.9 [facility] [address] 68603- 3837 Feb, Neuropathy G62.9 [facility] [address] 43004- 6858 Feb, Encounter for immunization Z23 ; Epigastric pain R10.13 ; Weight loss, abnormal R63.4 and Neuropathy G62.9 [facility] [address] [id number] Feb, [facility] [address] 60545- 1181 Feb, [facility] [address] 16908- 9492 Feb, Intractable vomiting with nausea, unspecified vomiting type R11.2 [facility] [id number] [place] [address] 45783 -2435 Feb, Chronic nausea R11.0 [facility] [id number] [place] [address] 70312- 9964 Feb, Other dorsalgia M54.89 [facility] [address] 93135- 1563 Jan, [facility] [id number] [place] [address] 50877- 3217 Jan, [facility] [address] 72502- 7862 Jan, [facility] [id number] [place] [address] 52976 2546 Jan, [facility] [id number] [place] [address] 16135 2546 Jan, Asthma exacerbation J45.901 ; Bronchitis J40 and Neuropathy G62.9 [facility] [address] 37132 2546 Jan, Anorexia R63.0 [facility] [id number] [place] [address] 71288- 2546 Jan, Other dorsalgia M54.89 [facility] [id number] [place] [address] 09884- 7686 Dec, [facility] [id number] [place] [address] 91080- 5466 Dec, [facility] [id number] [place] [address] 15547 2546 Dec, Anorexia R63.0 [facility] [id number] [place] [address] 00611- 1356 Dec, Primary insomnia F51.01 [facility] [id number] [place] [address] 88265 2546 Dec, Other dorsalgia M54.89 [facility] [id number] [place] [address] 45101 2546 Dec, [facility] [id number] [place] [address] 99362 2546 Nov, [facility] [id number] [place] [address] 60606 2546 Nov, [facility] [id number] [place] [address] 98950 2546 Nov, [facility] [id number] [place] [address] 69613 2323 Nov, History of colon polyps Z86.010 [facility] [id number] [place] [address] 43131- 2993 Nov, Weight loss R63.4 ; Nausea and vomiting, intractability of vomiting not specified, unspecified vomiting type R11.2 and Abnormal LFTs R79.89 [facility] [id number] [place] [address] 75803- 5701 Nov, [facility] [address] 16684- 3748 Nov, Neuropathy G62.9 and Pain in right knee M25.561 [address] 31432- 3930 Nov, Back pain M54.9 [facility] [id number] [place] [address] 64568- 8987 10 Nov, 2016 [facility] [address] 72106- 4819 Nov, Bronchitis J40 [facility] [id number] [place] [address] 61069- 2331 03 Nov, 2016 Weight loss R63.4 [facility] [id number] [place] [address] 54847- 9453 Oct, Back pain M54.9 [facility] [id number] [place] [address] 99630- 4925 16 Oct, 2016 [facility] [id number] [place] [address] 90581- 6588 14 Oct, 2016 Back pain M54.9 [facility] [address] 37027- 4514 13 Oct, 2016 Type 2 diabetes mellitus without complications E11.9 and Bronchitis J40 [facility] [id number] [place] [address] 47541- 1505 05 Oct, 2016 [facility] [id number] [place] [address] 19106- 9303 Oct, [address] [id number] [place] [address] 96894- 7675 September, Gastroparesis K31.84 ; Type 2 diabetes mellitus with diabetic autonomic (poly)neuropathy E11.43 and Neuropathy G62.9 [address] [facility] [id number] [place] [address] 58363- 3380 September, Other dorsalgia M54.89 [address] [id number] [place] [address] 69097- 0697 September, [facility] [id number] [place] [address] 28366- 2826 September, [address] [id number] [place] [address] 95873- 2345 Aug, Gastroparesis K31.84 and Radicular leg pain M54.10 [address] [facility] [id number] [place] [address] 58652- 1465 Aug, Anorexia R63.0 [address] [facility] [id number] [place] [address] 67249- 4033 Aug, Bronchitis J40 [address] [facility] [id number] [place] [address] 05994- 2907 Aug, Back pain M54.9 [facility] [id number] [place] [address] 44382- 8454 Aug, Routine gynecological examination Z01.419 ; Routine screening for STI (sexually transmitted infection) Z11.3 and Yeast infection of the vagina B37.3 [address] [facility] [id number] [place] [address] 42378- 3863 Jul, Other dorsalgia M54.89 [facility] [id number] [place] [address] 60186- 7065 Jul, Diabetes E11.9 and Gastroparesis K31.84 [address] [place] [place] [address] 73204- 7506 Jun, [facility] [address] 87684- 3578 24 Jun, 2016 Back pain M54.9 [facility] [address] 97701- 8433 14 Jun, 2016 Neuropathy G62.9 [facility] [address] [id number] Jun, 2016 Encounter for dental examination Z01.20 [facility] [address] 83600- 0052 Jun, Gastroparesis 536.3 and Anorexia R63.0 [facility] [address] 75325- 9322 May, Other dorsalgia M54.89 [facility] [address] 83169- 1736 May, Periumbilical abdominal pain R10.33 ; Weight loss R63.4 and Gastroparesis K31.84 [facility] [address] 77466- 6602 May, Back pain M54.9 [facility] [address] 12900- 7356 Apr, Anorexia R63.0 [facility] [address] 27496- 5253 Apr, Anorexia R63.0 [facility] [address] 82214- 8448 Apr, Back pain M54.9 [facility] [address] 50051- 6910 Apr, Back pain M54.9 [facility] [address] 98574- 7516 Apr, [facility] [id number] [place] [address] 23058- 7569 Apr, Bronchitis J40 and Neuropathy G62.9 [facility] [address] 73513- 6230 Apr, Neuropathy G62.9 [address] 55787- 0826 Apr, [address] [place] 77719- 9329 Apr, Back pain M54.9 [address] [facility] [address] 11753- 8097 Mar, Type 2 diabetes mellitus with diabetic autonomic (poly) neuropathy E11.43 [address] [place] 25432- 4606 Mar, Type 2 diabetes mellitus without complications E11.9 [address] [facility] [address] 78456- 6365 Mar, Neuropathy G62.9 [address] [place] 52321- 0879 Mar, [facility] [id number] [place] [address] 09984- 1877 Mar, Breast cancer screening Z12.39 [address] [place] 33836- 1932 Mar, Other dorsalgia M54.89 [facility] [facility] [id number] [place] [address] 44412- 9759 Feb, [address] [place] [address] 16090- 0911 Jan, Neuropathy G62.9 ; Type 2 diabetes mellitus with diabetic autonomic (poly)neuropathy E11.43 ; Uncomplicated asthma, unspecified asthma severity J45.909 and Encounter for immunization Z23 [address] [place] 95924- 9059 Jan, [facility] [address], [place] [address]- 9990 Jan, [facility] [id number] [place] [address] 15059- 5357 Dec, [facility] [id number] [place] [address] 49706- 3857 Dec, [facility] [id number] [place] [address] 96287- 4173 Nov, [facility] [id number] [place] [address] 97899- 0586 Nov, Back pain M54.9 [facility] [id number] [place] [address] 31674- 3053 Nov, Neuropathy G62.9 ; Mixed hyperlipidemia E78.2 ; Type 2 diabetes mellitus with diabetic autonomic (poly)neuropathy E11.43 and intermediate current use of insulin Z79.4 [facility] [address], [place] [address]- 2994 Oct, [facility] [id number] [place] [address] 37170- 9676 Oct, Other dorsalgia M54.89 [facility] [id number] [place] [address] 59091- 5106 September, Primary insomnia F51.01 [facility] [address], [place] [address]- 2408 September, [facility] [address], [place] [address]- 5852 Aug, Other dorsalgia M54.89 [facility] [address] [place] [address]- 2599 Jul, [facility] [address], [place] [address]- 2023 Jul, Other dorsalgia M54.89 [facility] [id number] [place] [address] 72924- 6693 Jul, Diabetes E11.9 ; Back pain M54.9 ; Neuropathy G62.9 and Gastroparesis K31.84 [facility] [id number] [place] [address] 35240- 7398 Jun, [facility] [address] 13210- 2878 Jun, Other dorsalgia M54.89 [facility] [id number] [place] [address] 73362- 9909 May, [facility] [address] 00575- 8538 May, Radicular leg pain M54.10 and Other dorsalgia M54.89 [facility] [id number] [place] [address] 20481- 6058 Apr, [facility] [id number] [place] [address] 84317- 6348 Mar, [facility] [id number] [place] [address] 44112- 7404 Mar, [facility] [id number] [place] [address] 85982- 3104 Mar, Radicular leg pain M54.10 [facility] [id number] [place] [address] 29652- 8247 Feb, [facility] [id number] [place] [address] 42722- 2016 Feb, [facility] [id number] [place] [address] 63045- 9707 Feb, [facility] [id number] [place] [address] 83791- 2321 Jan, [facility] [address] 99893- 5271 Jan, IBS (irritable bowel syndrome) 564.1 [facility] [id number] [place] [address] 17718- 6499 Jan, [facility] [id number] [place] [address] 29252- 7391 Jan, [facility] [id number] [place] [address] 25525- 6610 Jan, Diabetes mellitus without mention of complication, type II or unspecified type, not stated as uncontrolled 250.00 ; Gastroparesis 536.3 and Hypoacusis 389.9 [facility] [id number] [place] [address] 66352- 8486 Jan, [facility] [id number] [place] [address] 44172- 1001 Jan, [facility] [id number] [place] [address] 51251- 9979 Dec, [facility] [id number] [place] [address] 93041- 3870 Dec, [facility] [id number] [place] [address] 41665- 9683 Dec, [facility] [id number] [place] [address] 41242- 3094 Dec, Back pain 724.5 and Gastroparesis 536.3 [facility] [id number] [place] [address] 72955- 1380 Nov, [facility] [address] [id number] Nov, Dental examination V72.2 [facility] [address], [place] [address]- 5097 Nov, [facility] [address], [place] [address]- 0886 Nov, [facility] [address] [address] 3591 Nov, Depressive disorder, not elsewhere classified 311 and No condition on [place] II V71.09 [facility] [address]- 5169 Nov, Diabetes 250.00 and Symptomatic menopausal or female climacteric states 627.2 [facility] [id number] [place] [address] Oct, [facility] [id number] [place] [address] Oct, Lumbar strain 847.2 [facility] [id number] [place] [address]012- [address] Oct, Gastroparesis 536.3 and Unspecified myalgia and myositis 729.1 [facility] [id number] [place] [address]- [address] Aug, [facility] [id number], [place] [address] Aug, [facility] [id number], [place] [address] Jul, [facility] [id number], [place] [address] Jul, [facility] [id number], [place] [address] Jul, [facility] [id number], [place] [address] Jul, [facility] [id number] [address] Jul, [facility] [id number] [address] Jun, [facility] [id number] [address] [address] Jun, [facility] [place] [facility] [address] [id number] [place] [address] Jun, [facility] [place] [facility] [address] [id number] [place] [address] May, [facility] [place] [facility] [address] [id number] [place] [address] May, [facility] [place] [facility] [address] [id number] [place] [address] Mar, [facility] [place] [facility] [address] [id number] [place] [address] Mar, [facility] [place] [facility] [address] [id number] [place] [address] Mar, [facility] [place] [facility] [address] [id number] [place] [address] Mar, [facility] [place] [facility] [address] [id number] [place] [address] Mar, [facility] [place] [facility] [address] [id number] [place] [address] Mar, [facility] [place] [facility] [address] [id number], [place] [address] Feb, [facility] [place] [facility] [address] [id number], [place] [address] Feb, [facility] [place] [facility] [address] [id number], [place] [address] Nov, [facility] [place] [facility] [address] [id number] [place] [address] Nov, [facility] [place] [facility] [address] [id number], [place] [address] Nov, [facility] [place] [facility] [address] [id number], [place] [address] Oct, [facility] [place] [facility] [address] [id number], [place] [address] September, [facility] [address] [id number] [place] [address] Aug, [facility] [address] [id number] [place] [address] 15 Aug, 2012 [facility] [address] [facility] [id number] [place] [address] Aug, [facility] [address] [id number] [place] [address] Aug, [facility] [address] [id number] [place] [address] Aug, [facility] [address] [facility] [id number] [place] [address] Aug, [facility] [address] [id number] [place] [address] Aug, [facility] [address] [id number] [place] [address] Aug, [facility] [address] [id number] [place] [address] Jul, [facility] [address] [id number] [place] [address] Jul, [facility] [address] [id number] [place] [address] Jun, [facility] [place] [facility] [address] [id number] [place] [address] Jun, [facility] [place] [facility] [address] [id number] [place] [address] Jun, [facility] [place] [facility] [address] [id number], [place] [address] Jun, [facility] [address] [facility] [id number], [place] [address] 07 Jun, 2012 [facility] [address] [facility] [id number], [place] [address] Jun, [facility] [address] [id number], [place] [address] Jun, [facility] [address] [id number], [place] [address] May, [facility] [id number], [place] [address] May, [facility] [address] [id number], [place] [address] May, [facility] [id number], [place] [address] May, [facility] [id number], [place] [address] Mar, [facility] [address] [id number], [place] [address] Mar, [facility] [address] [facility] [id number], [place] [address] Jan, IMMUNIZATIONS No Known Immunizations SOCIAL HISTORY [...]
--- OUTSIDE RECORDS SUMMARY | 2018-01-27 20:35 | XMS REPORT ---
Author Author TISHA YOUNG [facility] Address [address] [place] [address] Care Team Providers Care Caser In Name Role Phone TISHA YOUNG Unavailable PROBLEMS Type Condition ICD9-CM Code SGT70-BH Code Onset Dates Condition Status SNOMED Code Problem Uncomplicated asthma, unspecified asthma severity J45.909 Active 429747493 Problem Weight loss R63.4 Active 913046731 Problem Anorexia R63.0 Active 86464156 Problem PTSD (post-traumatic stress disorder) F43.10 Active 27726110 Problem Diabetic polyneuropathy associated with type 2 diabetes mellitus E11.42 Active 24482574 Problem Primary insomnia F51.01 Active 7817411 Problem History of colon polyps Z86.010 Active 745449380 Problem Reactive depression F32.9 Active 85836398 Problem Asthma exacerbation J45.901 Active 112179100 Problem Depressive disorder, not elsewhere classified 311 Active 56983946 Problem Back pain M54.9 Active 840282851 Problem Gastroparesis K31.84 Active 944546013 Problem Mixed hyperlipidemia E78.2 Active 185187264 Problem Neuropathy G62.9 Active 773023615 Problem Type 2 diabetes mellitus with diabetic autonomic (poly)neuropathy E11.43 Active 28933579 Problem Diabetes E11.9 Active 12023409 Problem 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.4 Active 756524919 ALLERGIES No Information ENCOUNTERS Encounter Location Date Diagnosis [facility] [id number] [address] September, [facility] [id number], [place] [address] September, [facility] [id number] [id number] Aug, [facility] [id number] [place] [address] 30326- 9087 17 Aug, 2017 Other dorsalgia M54.89 [facility] [id number] [place] [address] 49997 2546 16 Aug, 2017 Type 2 diabetes mellitus with diabetic autonomic (poly) neuropathy E11.43 ; Diabetic polyneuropathy associated with type 2 diabetes mellitus E11.42 ; Bronchitis J40 ; Gastroparesis K31.84 and Reactive depression F32.9 [facility] [address] 00[address]66 2546 Aug, PTSD (post-traumatic stress disorder) F43.10 [facility] [id number] [place] [address] 59415 2546 Aug, Other dorsalgia M54.89 and Anorexia R63.0 [facility] [id number] [place] [address] 87750 2546 Jul, [facility] [address] [address]80 2546 Jul, Other dorsalgia M54.89 [facility] [id number] [place] [address] 50756 2546 Jul, [facility] [id number] [place] [address] 71562 2546 Jul, [facility] [id number] [place] [address] 76980 2546 Jul, PTSD (post-traumatic stress disorder) F43.10 [facility] [id number] [place] [address] 62372 2546 Jul, [facility] [id number] [place] [address] 30281 2546 Jul, [facility] [id number] [place] [address] 09704 2546 Jul, [facility] [id number] [place] [address] 67653 2546 Jul, Anorexia R63.0 [facility] [id number] [place] [address] 92856- 2879 Jun, [facility] [address] 78793- 3935 Jun, Vaginal discharge N89.8 ; Visit for gynecologic examination Z01.419 and Pelvic pressure in female R10.2 [facility] [address] 35064- 3796 Jun, [facility] [id number] [place] [address] 31418- 2532 Jun, Other dorsalgia M54.89 [facility] [address] 17983- 1066 Jun, [facility] [address] 02107- 1967 Jun, [facility] [id number] [place] [address] 85567- 0588 Jun, [facility] [id number] [place] [address] 29322- 7905 May, Back pain M54.9 [facility] [id number] [place] [address] 87292- 2086 May, Anorexia R63.0 [facility] [id number] [place] [address] 16493- 3204 May, Other dorsalgia M54.89 [facility] [id number] [place] [address] 05691- 4144 May, [facility] [id number] [place] [address] 75079- 8948 May, Bronchitis J40 [facility] [id number] [place] [address] 83665- 9783 May, Type 2 diabetes mellitus with diabetic autonomic (poly) neuropathy E11.43 ; 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 ; Back pain M54.9 and Neuropathy G62.9 [facility] [address] 58940 2547 May, Left breast mass N63.20 [facility] [id number] [place] [address] 20701 2546 May, [facility] [address] 92151 2546 Apr, Other dorsalgia M54.89 [facility] [address] 27555 2546 Apr, Anorexia R63.0 [facility] [address] 84537- 5576 Apr, Anorexia R63.0 [facility] [address] 90646 2546 Apr, Mass of left breast N63.20 [facility] [id number] [place] [address] 37851 2546 Apr, [facility] [address] 92641 2546 Apr, [facility] [address] 85187- 5078 Apr, Diarrhea of presumed infectious origin A09 [facility] [address] 14020 2543 Apr, Encounter for immunization Z23 [facility] [id number] [place] [address] 82780 2549 Apr, [facility] [address] 23005 2541 Mar, Other dorsalgia M54.89 [facility] [id number] [place] [address] 22757 2546 Mar, [facility] [address] 24063- 5674 Mar, [facility] [id number] [place] [address] 66332- 7760 Mar, Anorexia R63.0 [facility] [id number] [place] [address] 67811- 7888 Mar, [facility] [id number] [place] [address] 68125- 6507 Mar, Other dorsalgia M54.89 [facility] [id number] [place] [address] 98411- 0734 Mar, [facility] [address] 64718- 9106 Mar, Encounter for immunization Z23 [facility] [id number] [place] [address] 75420- 3591 Feb, Anorexia R63.0 [facility] [address] 04300- 6560 Feb, Diabetes E11.9 [facility] [id number] [place] [address] 42806- 5526 Feb, Back pain M54.9 and Diabetes E11.9 [facility] [id number] [place] [address] 07510- 9900 Feb, Diabetes E11.9 [facility] [id number] [place] [address] 29212- 8390 Feb, Neuropathy G62.9 [facility] [id number] [place] [address] 06747- 3367 Feb, Encounter for immunization Z23 ; Epigastric pain R10.13 ; Weight loss, abnormal R63.4 and Neuropathy G62.9 [facility] [id number] [place] [address] [id number] Feb, [facility] [id number] [place] [address] 36156- 8069 Feb, [facility] [id number] [place] [address] 46487- 1139 Feb, Intractable vomiting with nausea, unspecified vomiting type R11.2 [facility] [id number] [place] [address] 25166 -1213 Feb, Chronic nausea R11.0 [facility] [id number] [place] [address] 23015- 9042 Feb, Other dorsalgia M54.89 [facility] [id number] [place] [address] 98614- 3858 Jan, [facility] [address] 10884- 2203 Jan, [facility] [id number] [place] [address] 38036- 4949 Jan, [facility] [id number] [place] [address] 84949- 9612 Jan, [facility] [id number] [place] [address] 79217- 5126 Jan, Asthma exacerbation J45.901 ; Bronchitis J40 and Neuropathy G62.9 [facility] [id number] [place] [address] 34239- 9567 Jan, Anorexia R63.0 [facility] [id number] [place] [address] 29546- 4043 Jan, Other dorsalgia M54.89 [facility] [id number] [place] [address] 31958- 6455 Dec, [facility] [id number] [place] [address] 83751- 4142 Dec, [facility] [id number] [place] [address] 89392- 6886 Dec, Anorexia R63.0 [facility] [id number] [place] [address] 41437- 4308 Dec, Primary insomnia F51.01 [facility] [id number] [place] [address] 68714- 6734 Dec, Other dorsalgia M54.89 [facility] [id number] [place] [address] 19094- 5230 Dec, [facility] [id number] [place] [address] 89559- 9449 Nov, [facility] [id number] [place] [address] 37621- 2530 Nov, [facility] [id number] [place] [address] 12324- 3821 Nov, [facility] [id number] [place] [address] 66338- 6857 Nov, History of colon polyps Z86.010 [facility] [id number] [place] [address] 52003- 7360 Nov, Weight loss R63.4 ; Nausea and vomiting, intractability of vomiting not specified, unspecified vomiting type R11.2 and Abnormal LFTs R79.89 [facility] [id number] [place] [address] 59731- 5729 Nov, [facility] [id number] [place] [address] 40991- 0115 Nov, Neuropathy G62.9 and Pain in right knee M25.561 [facility] [id number] [place] [address] 56259- 2451 Nov, Back pain M54.9 [facility] [id number] [place] [address] 93326- 5084 Nov, [facility] [id number] [place] [address] 92125- 2944 Nov, Bronchitis J40 [facility] [id number] [place] [address] 64037- 7997 Nov, Weight loss R63.4 [facility] [address] [place] [address] 00777- 5834 Oct, Back pain M54.9 [facility] [id number] [place] [address] 57910- 3574 Oct, [facility] [id number] [place] [address] 35220- 9944 14 Oct, 2016 Back pain M54.9 [facility] [id number] [place] [address] 29606- 2796 Oct, Type 2 diabetes mellitus without complications E11.9 and Bronchitis J40 [facility] [id number] [place] [address] 21787- 1974 Oct, [facility] [id number] [place] [address] 55284- 1367 Oct, [facility] [id number] [place] [address] 70223- 1921 September, Gastroparesis K31.84 ; Type 2 diabetes mellitus with diabetic autonomic (poly)neuropathy E11.43 and Neuropathy G62.9 [facility] [id number] [place] [address] 99364- 5868 September, Other dorsalgia M54.89 [facility] [id number] [place] [address] 65072- 2242 September, [facility] [id number] [place] [address] 91020- 5710 September, [facility] [id number] [place] [address] 49839- 1679 Aug, Gastroparesis K31.84 and Radicular leg pain M54.10 [facility] [id number] [place] [address] 92126- 3937 Aug, Anorexia R63.0 [facility] [id number] [place] [address] 67066- 6881 Aug, Bronchitis J40 [facility] [address] 07312- 1624 Aug, Back pain M54.9 [facility] [address] 86149- 2816 Aug, Routine gynecological examination Z01.419 ; Routine screening for STI (sexually transmitted infection) Z11.3 and Yeast infection of the vagina B37.3 [facility] [address] 78893- 6129 Jul, Other dorsalgia M54.89 [facility] [address] 34180- 4408 Jul, Diabetes E11.9 and Gastroparesis K31.84 [address] [place] [address] 81956- 0110 Jun, [facility] [address] 23850- 4430 Jun, Back pain M54.9 [facility] [address] 27308- 5073 14 Jun, 2016 Neuropathy G62.9 [facility] [address] [id number] 02 Jun, 2016 Encounter for dental examination Z01.20 [facility] [address] 40297- 8372 Jun, Gastroparesis 536.3 and Anorexia R63.0 [facility] [address] 59533- 1434 May, Other dorsalgia M54.89 [facility] [address] 16710- 3040 May, Periumbilical abdominal pain R10.33 ; Weight loss R63.4 and Gastroparesis K31.84 [facility] [address] [place] [address]- 8391 May, Back pain M54.9 [facility] [id number] [place] [address] 88925 2546 Apr, Anorexia R63.0 [facility] [id number] [place] [address] 11220 2546 Apr, Anorexia R63.0 [facility] [address] 14805 2546 Apr, Back pain M54.9 [facility] [address] 81620 2546 15 Apr, 2016 Back pain M54.9 [facility] [id number] [place] [address] 87977 2546 Apr, [facility] [address] 89146- 7106 Apr, Bronchitis J40 and Neuropathy G62.9 [facility] [id number] [place] [address] 91683 2548 Apr, Neuropathy G62.9 [facility] [id number] [place] [address] 41495 2543 Apr, [facility] [id number] [place] [address] 68777- 1176 Apr, Back pain M54.9 [facility] [id number] [place] [address] 86898 2542 Mar, Type 2 diabetes mellitus with diabetic autonomic (poly) neuropathy E11.43 [facility] [address] 60801- 2106 Mar, Type 2 diabetes mellitus without complications E11.9 [facility] [id number] [place] [address] 57610 2546 Mar, Neuropathy G62.9 [facility] [id number] [place] [address] 20414- 9765 Mar, [facility] [id number] [place] [address] 33873- 5211 Mar, Breast cancer screening Z12.39 [place] [id number] [place] [address] 83471- 5724 Mar, Other dorsalgia M54.89 [facility] [address] 06649- 2033 Feb, [facility] [address] 44461- 1049 30 Jan, 2016 Neuropathy G62.9 ; Type 2 diabetes mellitus with diabetic autonomic (poly)neuropathy E11.43 ; Uncomplicated asthma, unspecified asthma severity J45.909 and Encounter for immunization Z23 [facility] [id number] [place] [address] 99130- 6091 Jan, [place] [address] 50818- 7381 Jan, [facility] [id number] [place] [address] 27261- 8126 Dec, [place] [address] 78209- 5554 Dec, [facility] [id number] [place] [address] 23315- 5607 Nov, [place] [id number] [place] [address] 93694- 8710 Nov, Back pain M54.9 [facility] [id number] [place] [address] 21550- 1076 Nov, Neuropathy G62.9 ; Mixed hyperlipidemia E78.2 ; Type 2 diabetes mellitus with diabetic autonomic (poly)neuropathy E11.43 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 [facility] [id number] [place] [address] 79948- 3081 Oct, [facility] [id number] [place] [address] 28994- 8731 Oct, Other dorsalgia M54.89 [facility] [id number] [place] [address] 35443- 2985 September, Primary insomnia F51.01 [facility] [id number] [place] [address] 98266- 3577 September, [facility] [id number] [place] [address] 18726- 5638 Aug, Other dorsalgia M54.89 [facility] [id number] [place] [address] 23447- 0941 Jul, [facility] [id number] [place] [address] 87533- 8486 Jul, Other dorsalgia M54.89 [facility] [id number] [place] [address] 33665- 6715 Jul, Diabetes E11.9 ; Back pain M54.9 ; Neuropathy G62.9 and Gastroparesis K31.84 [facility] [id number] [place] [address] 47084- 5594 Jun, [facility] [id number] [place] [address] 46201- 3168 Jun, Other dorsalgia M54.89 [facility] [id number] [place] [address] 77323- 3808 May, [facility] [id number] [place] [address] 64682- 7420 May, Radicular leg pain M54.10 and Other dorsalgia M54.89 [facility] [id number] [place] [address] 93035- 0578 Apr, [facility] [id number] [place] [address] 25295- 6627 Mar, [facility] [id number] [address]- 4047 Mar, [facility] [address] [place] [address]- 6929 Mar, Radicular leg pain M54.10 [facility] [address] [place] [address]- 2457 Feb, [facility] [id number] [place] [address] 76765- 2999 Feb, [facility] [address] [place] [address]- 8660 Feb, [facility] [id number] [place] [address] 66984- 3083 Jan, [facility] [id number] [place] [address] 16951- 6702 Jan, IBS (irritable bowel syndrome) 564.1 [facility] [id number] [place] [address] 03789- 8483 Jan, [facility] [id number] [place] [address] 81555- 4130 Jan, [facility] [id number] [place] [address] 68221- 0846 Jan, Diabetes mellitus without mention of complication, type II or unspecified type, not stated as uncontrolled 250.00 ; Gastroparesis 536.3 and Hypoacusis 389.9 [facility] [id number] [address] Jan, [facility] [id number] [address] Jan, [facility] [id number] [address] Dec, [facility] [id number] [address] Dec, [facility] [id number] [address] Dec, [facility] [id number] [address] Dec, Back pain 724.5 and Gastroparesis 536.3 [facility] [id number] [address] Nov, [facility] [id number] [id number] Nov, Dental examination V72.2 [facility] [id number] [place] [address]- [address] Nov, [facility] [id number] [place] [address]- [address] Nov, [facility] [id number] [address] Nov, Depressive disorder, not elsewhere classified 311 and No condition on Pierson II V71.09 [facility] [id number] [address] Nov, Diabetes 250.00 and Symptomatic menopausal or female climacteric states 627.2 [facility] [id number] [address] Oct, [facility] [id number] [place] [address] Oct, Lumbar strain 847.2 [facility] [id number] [place] [address] Oct, Gastroparesis 536.3 and Unspecified myalgia and myositis 729.1 [facility] [id number] [address] Aug, [facility] [id number] [place] [address] Aug, [facility] [id number] [place] [address], [place] [address] Jul, [facility] [place] [facility] [address] [id number] [place] [address] Jul, [facility] [place] [facility] [address] [id number] [place] [address] Jul, [facility] [place] [facility] [address] [id number] [place] [address]- [address] Jul, [facility] [place] [facility] [address] [id number] [place] [address] Jul, [facility] [place] [facility] [address] [id number] [place] [address]- [address] Jun, [facility] [place] [facility] [address] [id number] [place] [address]- [address]698 Jun, [facility] [place] [facility] [address] [id number] [place] [address]66 Jun, [facility] [place] [facility] [address] [id number] [place] [address]- [address] May, [facility] [place] [facility] [address] [id number] [place] [address]- [address] May, [facility] [place] [facility] [address] [id number] [place] [address]- [address]80 Mar, [facility] [place] [facility] [address] [id number] [place] [address] Mar, [facility] [place] [facility] [address] [id number] [place] [address]- [address] Mar, [facility] [place] [facility] [address] [id number] [place] [address]- [address] Mar, [facility] [place] [facility] [address] [id number] [place] [address]- [address]87 Mar, [facility] [place] [facility] [address] [id number] [place] [address]41 Mar, [facility] [place] [facility] [address] [id number] [place] [address]- [address] Feb, [facility] [address] [id number] [place] [address] Feb, [facility] [address] [address] [id number] [place] [address] Nov, [facility] [address] [id number] [place] [address] Nov, [facility] [address] [id number] [place] [address] Nov, [facility] [address] [id number] [place] [address] Oct, [facility] [address] [id number] [place] [address] September, [facility] [address] [id number] [place] [address] Aug, [facility] [address] [id number] [place] [address] Aug, [facility] [address] [id number] [place] [address] Aug, [facility] [address] [id number] [place] [address] Aug, [facility] [address] [id number] [place] [address] Aug, [facility] [address] [id number] [place] [address] Aug, [facility] [place] [facility] [address] [id number] [place] [address] Aug, [facility] [address] [id number] [place] [address] Aug, [facility] [address] [id number], [place] [address] Jul, [facility] [address] [id number] [place] [address] Jul, [facility] [address] [id number] [place] [address] Jun, [facility] [address] [id number] [place] [address] Jun, [facility] [address] [id number] [place] [address] 09 Jun, 2012 [facility] [address] [id number] [place] [address] 08 Jun, 2012 [facility] [address] [id number] [place] [address] Jun, [facility] [address] [id number] [place] [address] Jun, [facility] [address] [id number] [place] [address] Jun, [facility] [address] [id number] [place] [address] May, [facility] [address] [id number], [place] [address] May, [facility] [address] [id number], [place] [address] May, [facility] [address] [id number], [place] [address] May, [facility] [address] [id number], [place] [address] Mar, [facility] [address] [id number] [address] Mar, [facility] [address] [id number], [place] [address] Jan, IMMUNIZATIONS No Known Immunizations SOCIAL HISTORY Never Assessed REASON FOR VISIT Oxycodone 01/31 PLAN OF CARE VITAL SIGNS MEDICATIONS Medication [...] vomitting-[facility] 03/05/17 Hospitalization History hospital stay at [facility] for stomach issues 2016
--- OUTSIDE RECORDS SUMMARY | 2018-01-27 20:36 | XMS REPORT ---
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 Active 366612002 Problem PTSD (post-traumatic stress disorder) F43.10 Active 47377599 Problem Asthma exacerbation J45.901 Active 388335186 Problem Weight loss R63.4 Active 576638320 Problem Anorexia R63.0 Active 47797544 Problem Primary insomnia F51.01 Active 0749845 Problem History of colon polyps Z86.010 Active 402638935 Problem Neuropathy G62.9 Active 311196717 Problem Diabetes E11.9 Active 02761308 Problem Depressive disorder, not elsewhere classified 311 Active 50774017 Problem Gastroparesis K31.84 Active 800043246 Problem Back pain M54.9 Active 268431224 Problem Mixed hyperlipidemia E78.2 Active 850346962 ALLERGIES No Information ENCOUNTERS Encounter Location Date Diagnosis [facility] [id number] [id number] Aug, [facility] [address], [place] [address] 7065 Aug, [facility] [id number] [place] [address] 96441- 0324 Aug, [facility] [address], [place] [address] 5662 Jul, [facility] [id number] [place] [address] 50996- 9829 Jul, [facility] [id number] [place] [address] 73584- 9276 Jul, Other dorsalgia M54.89 [facility] [id number] [place] [address] 46992- 6126 Jul, [facility] [id number] [place] [address] 01258 2546 Jul, [facility] [id number] [place] [address] 83337 2546 Jul, PTSD (post-traumatic stress disorder) F43.10 [facility] [id number] [place] [address] 22193- 8306 Jul, [facility] [id number] [place] [address] 85747- 4016 Jul, [facility] [id number] [place] [address] 21129- 8446 Jul, [facility] [id number] [place] [address] 82018 2546 Jul, Anorexia R63.0 [facility] [id number] [place] [address] 79738- 9416 Jun, [facility] [id number] [place] [address] 24396- 2496 Jun, Vaginal discharge N89.8 ; Visit for gynecologic examination Z01.419 and Pelvic pressure in female R10.2 [facility] [id number] [place] [address] 11221 2546 Jun, [facility] [id number] [place] [address] 48828- 0706 Jun, Other dorsalgia M54.89 [facility] [id number] [place] [address] 41855- 4916 16 Jun, 2017 [facility] [id number] [place] [address] 04454- 4441 Jun, [facility] [address] 04247- 4284 Jun, [facility] [address] 00419- 3494 May, Back pain M54.9 [facility] [address] 57122- 6841 May, Anorexia R63.0 [facility] [address] 65832- 5342 May, Other dorsalgia M54.89 [facility] [address] 09675- 4762 May, [facility] [address] 79325- 9857 May, Bronchitis J40 [facility] [address] 56479- 8534 May, Type 2 diabetes mellitus with diabetic autonomic (poly) neuropathy E11.43 ; group home current use of insulin Z79.4 ; Back pain M54.9 and Neuropathy G62.9 [facility] [id number] [place] [address] 52269- 6549 May, Left breast mass N63.20 [facility] [address] 44484- 2444 May, [facility] [id number] [place] [address] 12098- 3528 Apr, Other dorsalgia M54.89 [facility] [address] 51724- 6696 Apr, Anorexia R63.0 [facility] [address] 89966- 4592 Apr, Anorexia R63.0 [facility] [address] [place] [address]- 8540 Apr, Mass of left breast N63.20 [facility] [id number] [place] [address] 85863- 3047 Apr, [facility] [address] 92489- 1645 Apr, [facility] [address] 27710- 5049 Apr, Diarrhea of presumed infectious origin A09 [facility] [address] 78459- 0224 Apr, Encounter for immunization Z23 [facility] [address] 77530- 0822 Apr, [facility] [address] 76931- 1601 Mar, Other dorsalgia M54.89 [facility] [id number] [place] [address] 69960- 1758 Mar, [facility] [id number] [place] [address] 39144- 6060 Mar, [facility] [id number] [place] [address] 48693- 8449 Mar, Anorexia R63.0 [facility] [id number] [place] [address] 66587- 1373 Mar, [facility] [id number] [place] [address] 18000- 2542 Mar, Other dorsalgia M54.89 [facility] [id number] [place] [address] 83252- 0955 Mar, [facility] [id number] [place] [address] 99740- 1575 Mar, Encounter for immunization Z23 [facility] [address] 78657- 2253 Feb, Anorexia R63.0 [facility] [id number] [place] [address] 98590- 4904 Feb, Diabetes E11.9 [facility] [id number] [place] [address] 47835- 6301 Feb, Back pain M54.9 and Diabetes E11.9 [facility] [address] 33700- 6307 Feb, Diabetes E11.9 [facility] [address] 93342- 0036 Feb, Neuropathy G62.9 [facility] [address] 81336- 2176 Feb, Encounter for immunization Z23 ; Epigastric pain R10.13 ; Weight loss, abnormal R63.4 and Neuropathy G62.9 [facility] [address] [id number] Feb, [facility] [address] 58686- 3353 Feb, [facility] [address] 78672- 8522 Feb, Intractable vomiting with nausea, unspecified vomiting type R11.2 [facility] [id number] [place] [address] 72225 -1674 Feb, Chronic nausea R11.0 [facility] [id number] [place] [address] 67086- 7180 Feb, Other dorsalgia M54.89 [facility] [address] 40881- 3868 Jan, [facility] [id number] [place] [address] 39250- 6683 Jan, [facility] [address] 75655- 0145 Jan, [facility] [id number] [place] [address] 41795 2546 Jan, [facility] [id number] [place] [address] 97000 2546 Jan, Asthma exacerbation J45.901 ; Bronchitis J40 and Neuropathy G62.9 [facility] [address] 71670 2546 Jan, Anorexia R63.0 [facility] [id number] [place] [address] 05695- 2546 Jan, Other dorsalgia M54.89 [facility] [id number] [place] [address] 56842- 7076 Dec, [facility] [id number] [place] [address] 31189- 5306 Dec, [facility] [id number] [place] [address] 84024 2546 Dec, Anorexia R63.0 [facility] [id number] [place] [address] 52607- 3576 Dec, Primary insomnia F51.01 [facility] [id number] [place] [address] 01934 2546 Dec, Other dorsalgia M54.89 [facility] [id number] [place] [address] 93149 2546 Dec, [facility] [id number] [place] [address] 25846 2546 Nov, [facility] [id number] [place] [address] 17239 2546 Nov, [facility] [id number] [place] [address] 68754 2546 Nov, [facility] [id number] [place] [address] 94299 7383 Nov, History of colon polyps Z86.010 [facility] [id number] [place] [address] 66304- 0608 Nov, Weight loss R63.4 ; Nausea and vomiting, intractability of vomiting not specified, unspecified vomiting type R11.2 and Abnormal LFTs R79.89 [facility] [id number] [place] [address] 03914- 8566 Nov, [facility] [address] 06602- 1440 Nov, Neuropathy G62.9 and Pain in right knee M25.561 [address] [place] 82239- 6218 Nov, Back pain M54.9 [facility] [id number] [place] [address] 37771- 2427 10 Nov, 2016 [facility] [address] 21439- 6922 Nov, Bronchitis J40 [facility] [id number] [place] [address] 82960- 5057 03 Nov, 2016 Weight loss R63.4 [facility] [id number] [place] [address] 10251- 1964 Oct, Back pain M54.9 [facility] [id number] [place] [address] 69538- 8269 16 Oct, 2016 [facility] [id number] [place] [address] 53277- 9537 14 Oct, 2016 Back pain M54.9 [facility] [address] 38631- 9987 13 Oct, 2016 Type 2 diabetes mellitus without complications E11.9 and Bronchitis J40 [facility] [id number] [place] [address] 66573- 6642 05 Oct, 2016 [facility] [id number] [place] [address] 28056- 1114 Oct, [address] [id number] [place] [address] 16374- 6192 September, Gastroparesis K31.84 ; Type 2 diabetes mellitus with diabetic autonomic (poly)neuropathy E11.43 and Neuropathy G62.9 [address] [facility] [id number] [place] [address] 37955- 5395 September, Other dorsalgia M54.89 [facility] [id number] [place] [address] 63397- 2199 September, [place] [facility] [id number] [place] [address] 09891- 3295 September, [facility] [id number] [place] [address] 79391- 0553 Aug, Gastroparesis K31.84 and Radicular leg pain M54.10 [facility] [id number] [place] [address] 36189- 5079 Aug, Anorexia R63.0 [facility] [id number] [place] [address] 63933- 9733 Aug, Bronchitis J40 [facility] [facility] [id number] [place] [address] 85934- 7601 Aug, Back pain M54.9 [facility] [id number] [place] [address] 41137- 5667 Aug, Routine gynecological examination Z01.419 ; Routine screening for STI (sexually transmitted infection) Z11.3 and Yeast infection of the vagina B37.3 [facility] [facility] [id number] [place] [address] 45951- 9964 Jul, Other dorsalgia M54.89 [facility] [id number] [place] [address] 63131- 7818 Jul, Diabetes E11.9 and Gastroparesis K31.84 [place] [address] [place] [address] 03008- 4007 Jun, [facility] [address] 47581- 9707 24 Jun, 2016 Back pain M54.9 [facility] [address] 75717- 9887 14 Jun, 2016 Neuropathy G62.9 [facility] [address] [id number] Jun, 2016 Encounter for dental examination Z01.20 [facility] [address] 50377- 6311 Jun, Gastroparesis 536.3 and Anorexia R63.0 [facility] [address] 51732- 9902 May, Other dorsalgia M54.89 [facility] [address] 44611- 2965 May, Periumbilical abdominal pain R10.33 ; Weight loss R63.4 and Gastroparesis K31.84 [facility] [address] 88971- 0866 May, Back pain M54.9 [facility] [address] 04457- 1912 Apr, Anorexia R63.0 [facility] [address] 05442- 7689 Apr, Anorexia R63.0 [facility] [address] 70386- 8263 Apr, Back pain M54.9 [facility] [address] 16609- 6913 Apr, Back pain M54.9 [facility] [address] 32577- 7180 Apr, [facility] [id number] [place] [address] 86521- 6495 Apr, Bronchitis J40 and Neuropathy G62.9 [facility] [address] 64192- 2884 Apr, Neuropathy G62.9 [address] [address] 34925- 5132 Apr, [place] [address] 11612- 4459 Apr, Back pain M54.9 [place] [address] 96646- 4893 Mar, Type 2 diabetes mellitus with diabetic autonomic (poly) neuropathy E11.43 [facility] [address] 34281- 0233 Mar, Type 2 diabetes mellitus without complications E11.9 [facility] [address] 61342- 9648 Mar, Neuropathy G62.9 [facility] [address] 92768- 7276 Mar, [facility] [facility] [id number] [place] [address] 73848- 8067 Mar, Breast cancer screening Z12.39 [facility] [address] 20788- 9340 Mar, Other dorsalgia M54.89 [facility] [facility] [id number] [place] [address] 51197- 8446 Feb, [place] [address] 85896- 2664 Jan, Neuropathy G62.9 ; Type 2 diabetes mellitus with diabetic autonomic (poly)neuropathy E11.43 ; Uncomplicated asthma, unspecified asthma severity J45.909 and Encounter for immunization Z23 [facility] [address] 17369- 0788 Jan, [facility] [address], [place] [address]- 8239 Jan, [facility] [id number] [place] [address] 24345- 2335 Dec, [facility] [id number] [place] [address] 76529- 8455 Dec, [facility] [id number] [place] [address] 79306- 4881 Nov, [facility] [id number] [place] [address] 78171- 3623 Nov, Back pain M54.9 [facility] [id number] [place] [address] 03278- 7307 Nov, Neuropathy G62.9 ; Mixed hyperlipidemia E78.2 ; Type 2 diabetes mellitus with diabetic autonomic (poly)neuropathy E11.43 and group home current use of insulin Z79.4 [facility] [address], [place] [address]- 4016 Oct, [facility] [id number] [place] [address] 88133- 0106 Oct, Other dorsalgia M54.89 [facility] [id number] [place] [address] 59935- 3855 September, Primary insomnia F51.01 [facility] [address], [place] [address]- 0255 September, [facility] [address], [place] [address]- 3228 Aug, Other dorsalgia M54.89 [facility] [address], [place] [address]- 4536 Jul, [facility] [address], [place] [address]- 3098 Jul, Other dorsalgia M54.89 [facility] [id number] [place] [address] 38622- 1539 Jul, Diabetes E11.9 ; Back pain M54.9 ; Neuropathy G62.9 and Gastroparesis K31.84 [facility] [id number] [place] [address] 65454- 9011 Jun, [facility] [address] 03756- 0120 Jun, Other dorsalgia M54.89 [facility] [id number] [place] [address] 65331- 4200 May, [facility] [address] 75343- 8363 May, Radicular leg pain M54.10 and Other dorsalgia M54.89 [facility] [id number] [place] [address] 48611- 0858 Apr, [facility] [id number] [place] [address] 21502- 9479 Mar, [facility] [id number] [place] [address] 00800- 5448 Mar, [facility] [id number] [place] [address] 10541- 9656 Mar, Radicular leg pain M54.10 [facility] [id number] [place] [address] 65944- 6106 Feb, [facility] [id number] [place] [address] 12396- 1732 Feb, [facility] [id number] [place] [address] 67513- 8411 Feb, [facility] [id number] [place] [address] 06114- 9431 Jan, [facility] [address] 66761- 4523 Jan, IBS (irritable bowel syndrome) 564.1 [facility] [id number] [place] [address] 85668- 4129 Jan, [facility] [id number] [place] [address] 89665- 9735 Jan, [facility] [id number] [place] [address] 82148- 3236 Jan, Diabetes mellitus without mention of complication, type II or unspecified type, not stated as uncontrolled 250.00 ; Gastroparesis 536.3 and Hypoacusis 389.9 [facility] [id number] [place] [address] 44222- 5664 Jan, [facility] [id number] [place] [address] 23201- 9759 Jan, [facility] [id number] [place] [address] 32248- 0982 Dec, [facility] [id number] [place] [address] 94468- 9589 Dec, [facility] [id number] [place] [address] 41012- 8128 Dec, [facility] [id number] [place] [address] 53157- 3692 Dec, Back pain 724.5 and Gastroparesis 536.3 [facility] [id number] [place] [address] 38709- 9116 Nov, [facility] [id number] [id number] Nov, Dental examination V72.2 [facility] [address], [place] [address]- 0791 Nov, [facility] [address], [place] [address]- 4239 Nov, [facility] [address] [address]- 3717 Nov, Depressive disorder, not elsewhere classified 311 and No condition on [place] II V71.09 [facility] [address] 7231 Nov, Diabetes 250.00 and Symptomatic menopausal or female climacteric states 627.2 [facility] [id number] [place] [address] 44040- 6610 Oct, [facility] [id number] [place] [address]- [address]40 Oct, Lumbar strain 847.2 [facility] [id number] [place] [address]656- [address] Oct, Gastroparesis 536.3 and Unspecified myalgia and myositis 729.1 [facility] [id number] [place] [address]- [address] Aug, [facility] [id number], [place] [address] Aug, [facility] [id number], [place] [address] Jul, [facility] [id number], [place] [address] Jul, [facility] [id number], [place] [address] Jul, [facility] [id number], [place] [address] Jul, [facility] [id number] [address] [address] Jul, [facility] [id number] [address] Jun, [facility] [id number] [address] Jun, [facility] [place] [facility] [address] [id number] [place] [address] Jun, [facility] [place] [facility] [address] [id number] [place] [address] May, [facility] [place] [facility] [address] [id number] [place] [address] May, [facility] [place] [facility] [address] [id number] [place] [address] Mar, [facility] [place] [facility] [address] [id number] [place] [address] Mar, [facility] [place] [facility] [address] [id number] [place] [address]- 1009 Mar, [facility] [place] [facility] [address] [id number] [place] [address]- [address] Mar, [facility] [place] [facility] [address] [id number] [place] [address]- [address]16 Mar, [facility] [place] [facility] [address] [id number] [place] [address] Mar, [facility] [place] [facility] [address] [id number], [place] [address] Feb, [facility] [place] [facility] [address] [id number], [place] [address] Feb, [facility] [place] [facility] [address] [id number], [place] [address] Nov, [facility] [place] [facility] [address] [id number] [place] [address]- 37[address] Nov, [facility] [place] [facility] [address] [id number], [place] [address] Nov, [facility] [place] [facility] [address] [id number], [place] [address] Oct, [facility] [place] [facility] [address] [id number], [place] [address] September, [facility] [address] [id number] [place] [address]- 8299 Aug, [facility] [address] [id number] [place] [address]- [address] 15 Aug, 2012 [facility] [address] [facility] [id number] [place] [address]- [address] Aug, [facility] [address] [id number] [place] [address]- 67[address] Aug, [facility] [address] [id number] [place] [address]- 69[address] Aug, [facility] [address] [facility] [id number] [place] [address]- [address] Aug, [facility] [id number] [place] [address]- [address] Aug, [facility] [address] [id number] [place] [address]- [address] Aug, [facility] [address] [id number] [place] [address]- [address] Jul, [facility] [address] [id number] [place] [address]- [address] Jul, [facility] [address] [id number] [place] [address]- 8[address] Jun, [facility] [facility] [place] [facility] [address] [id number] [place] [address] Jun, [facility] [place] [facility] [address] [id number] [place] [address] Jun, [facility] [place] [facility] [address] [id number], [place] [address] Jun[facility] [address] [facility] [id number], [place] [address] 07 Jun, 2012 [facility] [address] [facility] [id number], [place] [address] Jun, [facility] [address] [id number], [place] [address] Jun, [facility] [address] [id number], [place] [address] May, [facility] [id number], [place] [address] May, [facility] [address] [id number], [place] [address] May, [facility] [id number], [place] [address] May, [facility] [id number], [place] [address] Mar, [facility] [address] [id number], [place] [address] Mar, [facility] [address] [facility] [id number] [id number] Jan, IMMUNIZATIONS No Known Immunizations SOCIAL HISTORY [...] vomitting-[facility] 03/05/17 Hospitalization History hospital stay at [facility] for stomach issues 2016
--- OUTSIDE RECORDS SUMMARY | 2018-01-27 20:36 | XMS REPORT ---
Author Author TISHA YOUNG [facility] Address [address] [place] [address] Care Team Providers Care Wooden Tank Erector Name Role Phone TISHA YOUNG Unavailable PROBLEMS Type Condition ICD9-CM Code TYD91-AM Code Onset Dates Condition Status SNOMED Code Problem Uncomplicated asthma, unspecified asthma severity J45.909 Active 981142403 Problem Weight loss R63.4 Active 247261188 Problem Anorexia R63.0 Active 74920127 Problem PTSD (post-traumatic stress disorder) F43.10 Active 23309672 Problem Diabetic polyneuropathy associated with type 2 diabetes mellitus E11.42 Active 49865140 Problem Primary insomnia F51.01 Active 7725366 Problem History of colon polyps Z86.010 Active 343656881 Problem Reactive depression F32.9 Active 32162629 Problem Asthma exacerbation J45.901 Active 676675349 Problem Depressive disorder, not elsewhere classified 311 Active 79581156 Problem Back pain M54.9 Active 639842877 Problem Gastroparesis K31.84 Active 024266452 Problem Mixed hyperlipidemia E78.2 Active 204035555 Problem Neuropathy G62.9 Active 060471776 Problem Type 2 diabetes mellitus with diabetic autonomic (poly)neuropathy E11.43 Active 19419877 Problem Diabetes E11.9 Active 17495918 Problem care home current use of insulin Z79.4 Active 507703438 ALLERGIES No Information ENCOUNTERS Encounter Location Date Diagnosis [facility] [id number] [address] September, [facility] [id number] [address] September, [facility] [id number] [id number] Aug, [facility] [address] [place] [address] 18067- 1282 17 Aug, 2017 Other dorsalgia M54.89 [facility] [id number] [place] [address] 27908 2546 16 Aug, 2017 Type 2 diabetes mellitus with diabetic autonomic (poly) neuropathy E11.43 ; Diabetic polyneuropathy associated with type 2 diabetes mellitus E11.42 ; Bronchitis J40 ; Gastroparesis K31.84 and Reactive depression F32.9 [facility] [address] [address]94 2546 Aug, PTSD (post-traumatic stress disorder) F43.10 [facility] [id number] [place] [address] 88668 2546 Aug, Other dorsalgia M54.89 and Anorexia R63.0 [facility] [id number] [place] [address] 92393 2546 Jul, [facility] [address] 95802 2546 Jul, Other dorsalgia M54.89 [facility] [id number] [place] [address] 49657 2546 Jul, [facility] [id number] [place] [address] 93483 2546 Jul, [facility] [id number] [place] [address] 72311 2546 Jul, PTSD (post-traumatic stress disorder) F43.10 [facility] [id number] [place] [address] 69382 2546 Jul, [facility] [id number] [place] [address] 61619 2546 Jul, [facility] [id number] [place] [address] 34009 2546 Jul, [facility] [id number] [place] [address] 71119 2546 Jul, Anorexia R63.0 [facility] [id number] [place] [address] 94543- 8870 Jun, [facility] [address] 7[address]- [address]39 Jun, Vaginal discharge N89.8 ; Visit for gynecologic examination Z01.419 and Pelvic pressure in female R10.2 [facility] [address] [address]20- 5086 Jun, [facility] [id number] [place] [address] 73789- 9611 Jun, Other dorsalgia M54.89 [facility] [address] 66359- 4576 Jun, [facility] [address] 21852- 9451 Jun, [facility] [id number] [place] [address] 04093- 6350 Jun, [facility] [id number] [place] [address] 39166- 9481 May, Back pain M54.9 [facility] [id number] [place] [address] 53621- 7796 May, Anorexia R63.0 [facility] [id number] [place] [address] 17862- 7550 May, Other dorsalgia M54.89 [facility] [id number] [place] [address] 10215- 8469 May, [facility] [id number] [place] [address] 50223- 5851 May, Bronchitis J40 [facility] [id number] [place] [address] 92291- 2290 May, Type 2 diabetes mellitus with diabetic autonomic (poly) neuropathy E11.43 ; 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 ; Back pain M54.9 and Neuropathy G62.9 [facility] [address] 51221 254 May, Left breast mass N63.20 [facility] [id number] [place] [address] 37029 2546 May, [facility] [address] 21054 2546 Apr, Other dorsalgia M54.89 [facility] [address] 15293 2546 Apr, Anorexia R63.0 [facility] [address] 01894- 2266 Apr, Anorexia R63.0 [facility] [address] 47196 2546 Apr, Mass of left breast N63.20 [facility] [id number] [place] [address] 05753 2546 Apr, [facility] [address] 49368 2546 Apr, [facility] [address] 74475- 2232 Apr, Diarrhea of presumed infectious origin A09 [facility] [address] 93473 2544 Apr, Encounter for immunization Z23 [facility] [id number] [place] [address] 01593 2545 Apr, [facility] [address] 90588 2548 Mar, Other dorsalgia M54.89 [facility] [id number] [place] [address] 09969 2546 Mar, [facility] [address] 59060- 9492 Mar, [facility] [id number] [place] [address] 90489- 7622 Mar, Anorexia R63.0 [facility] [id number] [place] [address] 97090- 9484 Mar, [facility] [id number] [place] [address] 12094- 1604 Mar, Other dorsalgia M54.89 [facility] [id number] [place] [address] 29657- 5684 Mar, [facility] [address] 44324- 7479 Mar, Encounter for immunization Z23 [facility] [id number] [place] [address] 26676- 9213 Feb, Anorexia R63.0 [facility] [address] 84575- 0354 Feb, Diabetes E11.9 [facility] [id number] [place] [address] 02303- 4870 Feb, Back pain M54.9 and Diabetes E11.9 [facility] [id number] [place] [address] 34583- 9952 Feb, Diabetes E11.9 [facility] [id number] [place] [address] 12380- 3355 Feb, Neuropathy G62.9 [facility] [id number] [place] [address] 52502- 1016 Feb, Encounter for immunization Z23 ; Epigastric pain R10.13 ; Weight loss, abnormal R63.4 and Neuropathy G62.9 [facility] [id number] [place] [address] [id number] Feb, [facility] [id number] [place] [address] 87226- 8744 Feb, [facility] [address] [place] [address] 14225- 6857 Feb, Intractable vomiting with nausea, unspecified vomiting type R11.2 [facility] [id number] [place] [address] 83382 -8032 Feb, Chronic nausea R11.0 [facility] [id number] [place] [address] 95959- 6238 Feb, Other dorsalgia M54.89 [facility] [id number] [place] [address] 80592- 8877 Jan, [facility] [address] 27170- 0513 Jan, [facility] [id number] [place] [address] 46818- 9113 Jan, [facility] [id number] [place] [address] 39161- 1964 Jan, [facility] [id number] [place] [address] 70507- 4751 Jan, Asthma exacerbation J45.901 ; Bronchitis J40 and Neuropathy G62.9 [facility] [id number] [place] [address] 74054- 4543 Jan, Anorexia R63.0 [facility] [id number] [place] [address] 28685- 4899 Jan, Other dorsalgia M54.89 [facility] [id number] [place] [address] 73764- 1896 Dec, [facility] [id number] [place] [address] 89790- 9644 Dec, [facility] [id number] [place] [address] 92006- 9395 Dec, Anorexia R63.0 [facility] [id number] [place] [address] 07456- 0793 Dec, Primary insomnia F51.01 [facility] [id number] [place] [address] 29678- 6620 Dec, Other dorsalgia M54.89 [facility] [id number] [place] [address] 32722- 3184 Dec, [facility] [id number] [place] [address] 98603- 0624 Nov, [facility] [id number] [place] [address] 86310- 7305 Nov, [facility] [id number] [place] [address] 94830- 9663 Nov, [facility] [id number] [place] [address] 26450- 4356 Nov, History of colon polyps Z86.010 [facility] [id number] [place] [address] 14713- 6993 Nov, Weight loss R63.4 ; Nausea and vomiting, intractability of vomiting not specified, unspecified vomiting type R11.2 and Abnormal LFTs R79.89 [facility] [id number] [place] [address] 42792- 2623 Nov, [facility] [id number] [place] [address] 64318- 1578 Nov, Neuropathy G62.9 and Pain in right knee M25.561 [facility] [id number] [place] [address] 51580- 5387 Nov, Back pain M54.9 [facility] [id number] [place] [address] 79627- 4825 Nov, [facility] [id number] [place] [address] 08435- 7141 Nov, Bronchitis J40 [facility] [id number] [place] [address] 24889- 0145 Nov, Weight loss R63.4 [facility] [id number] [place] [address] 39755- 2400 Oct, Back pain M54.9 [facility] [id number] [place] [address] 11827- 1672 Oct, [facility] [id number] [place] [address] 56380- 7679 14 Oct, 2016 Back pain M54.9 [facility] [id number] [place] [address] 26819- 2433 Oct, Type 2 diabetes mellitus without complications E11.9 and Bronchitis J40 [facility] [id number] [place] [address] 56984- 7433 Oct, [facility] [id number] [place] [address] 59076- 9831 Oct, [facility] [id number] [place] [address] 90037- 6476 September, Gastroparesis K31.84 ; Type 2 diabetes mellitus with diabetic autonomic (poly)neuropathy E11.43 and Neuropathy G62.9 [facility] [id number] [place] [address] 56489- 5651 September, Other dorsalgia M54.89 [facility] [id number] [place] [address] 71591- 6711 September, [facility] [id number] [place] [address] 57655- 5357 September, [facility] [id number] [place] [address] 89931- 1727 Aug, Gastroparesis K31.84 and Radicular leg pain M54.10 [facility] [id number] [place] [address] 35591- 1336 Aug, Anorexia R63.0 [facility] [id number] [place] [address] 43746- 0845 Aug, Bronchitis J40 [facility] [address] 75818- 2803 Aug, Back pain M54.9 [facility] [address] 90834- 2814 Aug, Routine gynecological examination Z01.419 ; Routine screening for STI (sexually transmitted infection) Z11.3 and Yeast infection of the vagina B37.3 [facility] [address] 39397- 4728 Jul, Other dorsalgia M54.89 [facility] [address] 32718- 5590 Jul, Diabetes E11.9 and Gastroparesis K31.84 [address] 69016- 8584 Jun, [facility] [address] 16622- 3495 Jun, Back pain M54.9 [facility] [address] 58546- 0932 14 Jun, 2016 Neuropathy G62.9 [facility] [address] [id number] 02 Jun, 2016 Encounter for dental examination Z01.20 [facility] [address] 81151- 5728 Jun, Gastroparesis 536.3 and Anorexia R63.0 [facility] [address] 03394- 4382 May, Other dorsalgia M54.89 [facility] [address] 56044- 1135 May, Periumbilical abdominal pain R10.33 ; Weight loss R63.4 and Gastroparesis K31.84 [facility] [address] [place] [address]- 4266 May, Back pain M54.9 [facility] [id number] [place] [address] 60142 2546 Apr, Anorexia R63.0 [facility] [id number] [place] [address] 11587 2546 Apr, Anorexia R63.0 [facility] [address] 42879 2546 Apr, Back pain M54.9 [facility] [address] 53177 2546 15 Apr, 2016 Back pain M54.9 [facility] [id number] [place] [address] 45121 2546 Apr, [facility] [address] 24428- 0106 Apr, Bronchitis J40 and Neuropathy G62.9 [facility] [id number] [place] [address] 84167 2544 Apr, Neuropathy G62.9 [facility] [id number] [place] [address] 00531 254 Apr, [facility] [id number] [place] [address] 54705- 7243 Apr, Back pain M54.9 [facility] [id number] [place] [address] 73879 2540 Mar, Type 2 diabetes mellitus with diabetic autonomic (poly) neuropathy E11.43 [facility] [address] 74253- 2216 Mar, Type 2 diabetes mellitus without complications E11.9 [facility] [id number] [place] [address] 74304 2546 Mar, Neuropathy G62.9 [facility] [id number] [place] [address] 35050- 0606 Mar, [facility] [id number] [place] [address] 11975- 7300 Mar, Breast cancer screening Z12.39 [place] [id number] [place] [address] 24760- 4357 Mar, Other dorsalgia M54.89 [facility] [address] 94666- 4704 Feb, [facility] [address] 73637- 0790 30 Jan, 2016 Neuropathy G62.9 ; Type 2 diabetes mellitus with diabetic autonomic (poly)neuropathy E11.43 ; Uncomplicated asthma, unspecified asthma severity J45.909 and Encounter for immunization Z23 [facility] [id number] [place] [address] 90281- 0793 Jan, [place] [address] 13136- 9768 Jan, [facility] [id number] [place] [address] 56408- 3429 Dec, [place] [address] 57845- 6347 Dec, [facility] [id number] [place] [address] 69716- 7815 Nov, [place] [id number] [place] [address] 69940- 7818 Nov, Back pain M54.9 [facility] [id number] [place] [address] 25380- 6677 Nov, Neuropathy G62.9 ; Mixed hyperlipidemia E78.2 ; Type 2 diabetes mellitus with diabetic autonomic (poly)neuropathy E11.43 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89 [facility] [id number] [place] [address] 12148- 5316 Jul, [facility] [id number] [place] [address] 16231- 5624 Jul, Other dorsalgia M54.89 [facility] [id number] [place] [address] 96814- 7948 Jul, Diabetes E11.9 ; Back pain M54.9 ; Neuropathy G62.9 and Gastroparesis K31.84 [facility] [id number] [place] [address] 50002- 9260 Jun, [facility] [id number] [place] [address] 82865- 4524 Jun, Other dorsalgia M54.89 [facility] [id number] [place] [address] 14017- 6015 May, [facility] [id number] [place] [address] 73532- 5885 May, Radicular leg pain M54.10 and Other dorsalgia M54.89 [facility] [id number] [place] [address] 06994- 9173 Apr, [facility] [id number] [place] [address] 97858- 2140 Mar, [facility] [id number] [address]- 3050 Mar, [facility] [address] [address]- 0912 Mar, Radicular leg pain M54.10 [facility] [address], [place] [address]- 9891 Feb, [facility] [id number] [place] [address] 31159- 7055 Feb, [facility] [address] [address]- 8466 Feb, [facility] [id number] [place] [address] 80670- 7876 Jan, [facility] [id number] [place] [address] 60627- 5845 Jan, IBS (irritable bowel syndrome) 564.1 [facility] [id number] [place] [address] 20147- 1752 Jan, [facility] [address] [place] [address] 91120- 4308 Jan, [facility] [address] [place] [address] 13501- 9047 Jan, Diabetes mellitus without mention of complication, type II or unspecified type, not stated as uncontrolled 250.00 ; Gastroparesis 536.3 and Hypoacusis 389.9 [facility] [address] [address]- 3822 Jan, [facility] [address] [address]- 1604 Jan, [facility] [address] [address]- 4597 Dec, [facility] [address] [address]- 7542 Dec, [facility] [id number] [address]- 2784 Dec, [facility] [address] [address]- 7704 Dec, Back pain 724.5 and Gastroparesis 536.3 [facility] [address] [address]- 8836 Nov, [facility] [id number] [id number] Nov, Dental examination V72.2 [facility] [address] [place] [address] 46278- 5564 Nov, [facility] [address] [place] [address] 08646- 4441 Nov, [facility] [address] [address]- 8116 Nov, Depressive disorder, not elsewhere classified 311 and No condition on [place] II V71.09 [facility] [address], [place] [address]- 9847 Nov, Diabetes 250.00 and Symptomatic menopausal or female climacteric states 627.2 [facility] [address], [place] [address]- 4260 Oct, [facility] [address] [address]- 6346 Oct, Lumbar strain 847.2 [facility] [address] [address]- 7547 Oct, Gastroparesis 536.3 and Unspecified myalgia and myositis 729.1 [facility] [id number] [address] Aug, [facility] [id number] [address] Aug, [facility] [id number] [place] [address], [place] [address] Jul, [facility] [place] [facility] [address] [id number] [place] [address] Jul, [facility] [place] [facility] [address] [id number] [place] [address] Jul, [facility] [place] [facility] [address] [id number] [place] [address] Jul, [facility] [place] [facility] [address] [id number] [place] [address] Jul, [facility] [place] [facility] [address] [id number] [place] [address] Jun, [facility] [place] [facility] [address] [id number] [place] [address] Jun, [facility] [place] [facility] [address] [id number] [place] [address] Jun, [facility] [place] [facility] [address] [id number] [place] [address] May, [facility] [place] [facility] [address] [id number] [place] [address] May, [facility] [place] [facility] [address] [id number] [place] [address] Mar, [facility] [place] [facility] [address] [id number] [place] [address] Mar, [facility] [place] [facility] [address] [id number] [place] [address] Mar, [facility] [place] [facility] [address] [id number] [place] [address] Mar, [facility] [place] [facility] [address] [id number] [place] [address] Mar, [facility] [place] [facility] [address] [id number] [place] [address] Mar, [facility] [place] [facility] [address] [id number] [place] [address] Feb, [facility] [address] [id number] [place] [address] Feb, [facility] [address] [id number] [place] [address] Nov, [facility] [address] [id number] [place] [address] Nov, [facility] [address] [id number] [place] [address] Nov, [facility] [address] [id number] [place] [address] Oct, [facility] [address] [id number] [place] [address] September, [facility] [address] [id number] [place] [address] Aug, [facility] [address] [id number] [place] [address] Aug, [facility] [address] [id number] [place] [address] Aug, [facility] [address] [id number] [place] [address] Aug, [facility] [address] [id number] [place] [address] Aug, [facility] [address] [id number] [place] [address] Aug, [facility] [place] [facility] [address] [id number] [place] [address] Aug, [facility] [address] [id number] [place] [address] Aug, [facility] [address] [id number] [address] Jul, [facility] [address] [facility] [id number] [place] [address] Jul, [facility] [address] [facility] [id number] [place] [address] Jun, [facility] [address] [facility] [id number] [place] [address] Jun, [facility] [address] [facility] [id number] [place] [address] 09 Jun, 2012 [facility] [address] [facility] [id number] [place] [address] 08 Jun, 2012 [facility] [address] [facility] [id number] [place] [address] Jun, [facility] [address] [facility] [id number] [place] [address] Jun, [facility] [address] [facility] [id number] [place] [address] Jun, [facility] [address] [facility] [id number] [place] [address] May, [facility] [address] [facility] [id number][place] [address] May, [facility] [address] [facility] [id number], [place] [address] May, [facility] [address] [facility] [id number], [place] [address] May, [facility] [address] [facility] [id number], [place] [address] Mar, [facility] [address] [facility] [id number][place] [address] Mar, [facility] [address] [facility] [id number], [place] [address] Jan, IMMUNIZATIONS No Known Immunizations SOCIAL HISTORY Never Assessed REASON FOR VISIT Controlled Med Refill PLAN OF CARE VITAL SIGNS MEDICATIONS Medication [...] vomitting-[facility] 03/05/17 Hospitalization History hospital stay at [facility] for stomach issues 2016
--- OUTSIDE RECORDS SUMMARY | 2018-01-27 20:38 | XMS REPORT ---
Author Author HORACE HIGGINS [facility] Address [address] [place] [address] Care Team Providers Care Facility Security Officer Name Role Phone HORACE HIGGINS Unavailable PROBLEMS Type Condition ICD9-CM Code AJT22-SL Code Onset Dates Condition Status SNOMED Code Problem Uncomplicated asthma, unspecified asthma severity J45.909 Active 458325862 Problem Weight loss R63.4 Active 498057247 Problem Anorexia R63.0 Active 19030314 Problem PTSD (post-traumatic stress disorder) F43.10 Active 61009505 Problem Diabetic polyneuropathy associated with type 2 diabetes mellitus E11.42 Active 70185628 Problem Primary insomnia F51.01 Active 1441197 Problem History of colon polyps Z86.010 Active 875105197 Problem Reactive depression F32.9 Active 64009027 Problem Asthma exacerbation J45.901 Active 137853704 Problem Depressive disorder, not elsewhere classified 311 Active 88751471 Problem Back pain M54.9 Active 555126263 Problem Gastroparesis K31.84 Active 524069838 Problem Mixed hyperlipidemia E78.2 Active 480099191 Problem Neuropathy G62.9 Active 881849570 Problem Type 2 diabetes mellitus with diabetic autonomic (poly)neuropathy E11.43 Active 05538813 Problem Diabetes E11.9 Active 56053256 Problem assisted current use of insulin Z79.4 Active 004201246 ALLERGIES No Information ENCOUNTERS Encounter Location Date Diagnosis [facility] [place] [address] [facility] [id number] [address] September, [facility] [place] [address] [address] September, [facility] [id number] [id number] Aug, [facility] [place] [address] [address] Aug, [facility] [place] [id number] [place] [address] 19071 2546 Aug, Other dorsalgia M54.89 [facility] [place] [id number] [place] [address] 12447 2546 Aug, Type 2 diabetes mellitus with diabetic autonomic (poly) neuropathy E11.43 ; Diabetic polyneuropathy associated with type 2 diabetes mellitus E11.42 ; Bronchitis J40 ; Gastroparesis K31.84 and Reactive depression F32.9 [facility] [place] [id number] [place] [address] 31928 2546 Aug, PTSD (post-traumatic stress disorder) F43.10 [facility] [place] [id number] [place] [address] 29092- 4896 Aug, Other dorsalgia M54.89 and Anorexia R63.0 [facility] [place] [id number] [place] [address] 14239- 6076 Jul, [facility] [place] [id number] [place] [address] 78707- 3529 Jul, Other dorsalgia M54.89 [facility] [place] [id number] [place] [address] 48587 2546 Jul, [facility] [place] [id number] [place] [address] 03738- 2246 Jul, [facility] [place] [id number] [place] [address] 99808 2547 Jul, PTSD (post-traumatic stress disorder) F43.10 [facility] [place] [id number] [place] [address] 30254- 0156 Jul, [facility] [place] [id number] [place] [address] 77908- 7866 Jul, [facility] [place] [id number] [place] [address] 13284- 8626 Jul, [facility] [place] [address] [place] [address] Jul, Anorexia R63.0 [facility] [place] [address] 46705 2546 Jun, [facility] [place] [id number] [place] [address] 13657 2546 Jun, Vaginal discharge N89.8 ; Visit for gynecologic examination Z01.419 and Pelvic pressure in female R10.2 [facility] [place] [address] 15155 2546 Jun, [facility] [place] [address] 60286 2546 Jun, Other dorsalgia M54.89 [facility] [place] [address] 49975- 2706 Jun, [facility] [place] [address] 50395- 1496 Jun, [facility] [place] [id number] [place] [address] 94270- 7966 Jun, [facility] [place] [address] 18451 2546 May, Back pain M54.9 [facility] [place] [id number] [place] [address] 04754 2546 May, Anorexia R63.0 [facility] [place] [id number] [place] [address] 64462 2546 May, Other dorsalgia M54.89 [facility] [place] [address] 78563 2546 May, [facility] [place] [address] 00523 2546 May, Bronchitis J40 [facility] [place] [id number] [place] [address] 77193 2546 May, Type 2 diabetes mellitus with diabetic autonomic (poly) neuropathy E11.43 ; assisted current use of insulin Z79.4 ; Back pain M54.9 and Neuropathy G62.9 [address] [address] 47089- 5553 May, Left breast mass N63.20 [facility] [place] [address] 86423- 0836 May, [facility] [place] [address] 55696- 5576 Apr, Other dorsalgia M54.89 [address] [address] 55935- 5184 Apr, Anorexia R63.0 [place] [address] 91191- 1643 Apr, Anorexia R63.0 [place] [address] 50866- 5383 Apr, Mass of left breast N63.20 [place] [address] 22798- 5727 Apr, [place] [address] 53167- 0309 Apr, [place] [address] 43197- 1134 Apr, Diarrhea of presumed infectious origin A09 [place] [address] 75156- 7302 Apr, Encounter for immunization Z23 [place] [address] 03618- 5445 Apr, [place] [address] 97536- 7029 Mar, Other dorsalgia M54.89 [place] [address] 04441- 5426 Mar, [facility] [place] [id number] [place] [address] 24210- 2639 Mar, [facility] [place] [id number] [place] [address] 99193- 6200 Mar, Anorexia R63.0 [facility] [place] [id number] [place] [address] 62807- 6911 Mar, [facility] [place] [address] 40507- 0720 Mar, Other dorsalgia M54.89 [facility] [place] [address] 97205- 7423 Mar, [facility] [place] [id number] [place] [address] 68243- 6798 Mar, Encounter for immunization Z23 [facility] [place] [address] 40697- 6004 Feb, Anorexia R63.0 [facility] [place] [id number] [place] [address] 63542- 4723 Feb, Diabetes E11.9 [facility] [place] [address] 64584- 2490 Feb, Back pain M54.9 and Diabetes E11.9 [facility] [place] [id number] [place] [address] 72747- 9183 Feb, Diabetes E11.9 [facility] [place] [id number] [place] [address] 63364- 0201 Feb, Neuropathy G62.9 [facility] [place] [id number] [place] [address] 65525- 4533 Feb, Encounter for immunization Z23 ; Epigastric pain R10.13 ; Weight loss, abnormal R63.4 and Neuropathy G62.9 [facility] [id number] [place] [address] [id number] Feb, [facility] [place] [id number] [place] [address] 43372- 3567 Feb, [facility] [place] [address] 40822- 4857 Feb, Intractable vomiting with nausea, unspecified vomiting type R11.2 [facility] [address] 09022 -3069 Feb, Chronic nausea R11.0 [facility] [place] [address] 31817- 3773 Feb, Other dorsalgia M54.89 [facility] [place] [address] 43606- 3214 Jan, [facility] [place] [address] 52379- 1624 Jan, [facility] [place] [address] 91130- 6947 Jan, [facility] [place] [address] 06551- 4005 Jan, [facility] [place] [address] 09740- 8948 Jan, Asthma exacerbation J45.901 ; Bronchitis J40 and Neuropathy G62.9 [facility] [place] [id number] [place] [address] 66190- 1573 Jan, Anorexia R63.0 [facility] [place] [address] 20121- 1070 Jan, Other dorsalgia M54.89 [facility] [place] [address] 68547- 8228 Dec, [facility] [place] [address] 85818- 0407 Dec, [facility] [place] [address] 55829- 5056 Dec, Anorexia R63.0 [facility] [place] [id number] [place] [address] 94160- 4740 Dec, Primary insomnia F51.01 [facility] [place] [address] 52521- 5896 Dec, Other dorsalgia M54.89 [facility] [place] [id number] [place] [address] 26315- 7849 Dec, [facility] [place] [address] 57577- 8245 Nov, [facility] [place] [id number] [place] [address] 01690- 4768 Nov, [facility] [place] [id number] [place] [address] 15944- 6544 Nov, [facility] [place] [id number] [place] [address] 76889- 1333 Nov, History of colon polyps Z86.010 [facility] [place] [id number] [place] [address] 68830- 6980 Nov, Weight loss R63.4 ; Nausea and vomiting, intractability of vomiting not specified, unspecified vomiting type R11.2 and Abnormal LFTs R79.89 [facility] [place] [id number] [place] [address] 55537- 2558 Nov, [facility] [place] [id number] [place] [address] 38742- 1365 Nov, Neuropathy G62.9 and Pain in right knee M25.561 [facility] [place] [id number] [place] [address] 41697- 9107 Nov, Back pain M54.9 [facility] [place] [id number] [place] [address] 25142- 1317 Nov, [facility] [place] [id number] [place] [address] 78044- 8361 Nov, Bronchitis J40 [id number] [place] [address] 31766- 7834 Nov, Weight loss R63.4 [facility] [place] [id number] [place] [address] 19520- 7873 Oct, Back pain M54.9 [facility] [place] [id number] [place] [address] 53924- 6708 Oct, [facility] [place] [id number] [place] [address] 58490- 0505 Oct, Back pain M54.9 [facility] [place] [id number] [place] [address] 24642- 2167 Oct, Type 2 diabetes mellitus without complications E11.9 and Bronchitis J40 [facility] [place] [id number] [place] [address] 32793- 6402 Oct, [facility] [place] [id number] [place] [address] 56705- 2503 Oct, [facility] [place] [id number] [place] [address] 50220- 0033 September, Gastroparesis K31.84 ; Type 2 diabetes mellitus with diabetic autonomic (poly)neuropathy E11.43 and Neuropathy G62.9 [facility] [place] [id number] [place] [address] 25865- 3804 September, Other dorsalgia M54.89 [facility] [place] [id number] [place] [address] 47583- 4752 September, [facility] [place] [id number] [place] [address] 64751- 6728 September, [facility] [place] [id number] [place] [address] 45754- 8849 Aug, Gastroparesis K31.84 and Radicular leg pain M54.10 [facility] [place] [id number] [place] [address] 07391- 6620 Aug, Anorexia R63.0 [facility] [place] [id number] [place] [address] 92523- 7395 Aug, Bronchitis J40 [place] [id number] [place] [address] 56192- 6049 Aug, Back pain M54.9 [place] [id number] [place] [address] 69829- 3132 Aug, Routine gynecological examination Z01.419 ; Routine screening for STI (sexually transmitted infection) Z11.3 and Yeast infection of the vagina B37.3 [place] [id number] [place] [address] 10589- 4904 Jul, Other dorsalgia M54.89 [place] [id number] [place] [address] 72224- 9915 Jul, Diabetes E11.9 and Gastroparesis K31.84 [place] [address] 87352- 2868 28 Jun, 2016 [facility] [place] [id number] [place] [address] 59160- 8189 24 Jun, 2016 Back pain M54.9 [facility] [place] [id number] [place] [address] 56214- 9203 14 Jun, 2016 Neuropathy G62.9 [facility] [address] [place] [address] [id number] Jun, 2016 Encounter for dental examination Z01.20 [facility] [place] [id number] [place] [address] 52977- 0535 Jun, Gastroparesis 536.3 and Anorexia R63.0 [place] [id number] [place] [address] 20469- 7921 May, Other dorsalgia M54.89 [place] [id number] [place] [address] 70235- 1571 May, Periumbilical abdominal pain R10.33 ; Weight loss R63.4 and Gastroparesis K31.84 [facility] [place] [id number] [place] [address] 89357 2546 May, Back pain M54.9 [facility] [place] [id number] [place] [address] 17243 2546 23 Apr, 2016 Anorexia R63.0 [facility] [place] [address] 59220 2546 Apr, Anorexia R63.0 [facility] [place] [address] 62025 2546 16 Apr, 2016 Back pain M54.9 [facility] [place] [address] 48106 2546 Apr, Back pain M54.9 [facility] [place] [id number] [place] [address] 13867 2546 Apr, [facility] [place] [address] 32097 2546 Apr, Bronchitis J40 and Neuropathy G62.9 [facility] [place] [address] 43916 2546 Apr, Neuropathy G62.9 [facility] [place] [address] 14992 2546 05 Apr, 2016 [facility] [place] [id number] [place] [address] 79535 2546 Apr, Back pain M54.9 [facility] [place] [id number] [place] [address] 12258 2546 Mar, Type 2 diabetes mellitus with diabetic autonomic (poly) neuropathy E11.43 [facility] [place] [id number] [place] [address] 01399 2546 Mar, Type 2 diabetes mellitus without complications E11.9 [facility] [place] [id number] [place] [address] 42913 2545 Mar, Neuropathy G62.9 [facility] [place] [id number] [place] [address] 31258- 9808 Mar, [facility] [place] [id number] [place] [address] 10355- 0937 Mar, Breast cancer screening Z12.39 [facility] [place] [id number] [place] [address] 36480- 4765 Mar, Other dorsalgia M54.89 [facility] [place] [id number] [place] [address] 72122- 4767 Feb, [facility] [place] [id number] [place] [address] 55041- 2133 Jan, Neuropathy G62.9 ; Type 2 diabetes mellitus with diabetic autonomic (poly)neuropathy E11.43 ; Uncomplicated asthma, unspecified asthma severity J45.909 and Encounter for immunization Z23 [place] [id number] [place] [address] 66743- 2850 Jan, [place] [id number] [place] [address] 78294- 1507 Jan, [facility] [place] [id number] [place] [address] 25875- 1952 Dec, [place] [id number] [place] [address] 81362- 0522 Dec, [facility] [place] [id number] [place] [address] 70216- 2491 Nov, [facility] [place] [id number] [place] [address] 82498- 3595 Nov, Back pain M54.9 [facility] [place] [id number] [place] [address] 71266- 5596 Nov, Neuropathy G62.9 ; Mixed hyperlipidemia E78.2 ; Type 2 diabetes mellitus with diabetic autonomic (poly)neuropathy E11.43 and assisted current use of insulin Z79.4 [place] [address] [place] [address]- 7051 Oct, [facility] [place] [id number] [place] [address] 94797- 5545 Oct, Other dorsalgia M54.89 [facility] [place] [id number] [place] [address] 73879- 1916 September, Primary insomnia F51.01 [facility] [place] [address] 38034- 9575 September, [facility] [place] [id number] [place] [address] 01617- 5386 Aug, Other dorsalgia M54.89 [facility] [place] [id number] [place] [address] 70935- 1896 Jul, [facility] [place] [id number] [place] [address] 32379- 8098 Jul, Other dorsalgia M54.89 [facility] [place] [id number] [place] [address] 39943- 9408 Jul, Diabetes E11.9 ; Back pain M54.9 ; Neuropathy G62.9 and Gastroparesis K31.84 [facility] [place] [id number] [place] [address] 17168- 4682 Jun, [facility] [place] [id number] [place] [address] [phone]- [phone] Jun, Other dorsalgia M54.89 [facility] [place] [id number] [place] [address] [phone] May, [facility] [place] [id number] [place] [address] [phone]- [phone] May, Radicular leg pain M54.10 and Other dorsalgia M54.89 [facility] [place] [id number] [place] [address] [phone]- [phone] Apr, [facility] [place] [id number] [place] [address] [id number]- [phone] Mar, [facility] [place] [id number] [address] Mar, [facility] [place] [id number] [place] [address] [phone]- [phone] Mar, Radicular leg pain M54.10 [facility] [place] [id number] [place] [address] [phone]- [phone] Feb, [facility] [place] [id number] [place] [address] [id number]- [phone] Feb, [facility] [place] [id number] [place] [address] [phone]- [phone] Feb, [facility] [place] [id number] [place] [address] [phone]- [phone] Jan, [facility] [place] [id number] [place] [address] [id number]- [phone] Jan, IBS (irritable bowel syndrome) 564.1 [facility] [place] [id number] [place] [address] [phone] Jan, [facility] [place] [id number] [place] [address] [phone] Jan, [facility] [place] [address] [id number] [address] Jan, Diabetes mellitus without mention of complication, type II or unspecified type, not stated as uncontrolled 250.00 ; Gastroparesis 536.3 and Hypoacusis 389.9 [facility] [place] [id number] [address] Jan, [facility] [place] [id number] [place] [address]- 4776 Jan, [facility] [place] [id number] [address] Dec, [facility] [place] [id number] [address] Dec, [facility] [place] [id number] [place] [address]- 1487 Dec, [facility] [place] [id number] [place] [address]83- 9540 Dec, Back pain 724.5 and Gastroparesis 536.3 [facility] [place] [id number] [place] [address]- 8130 Nov, [facility] [id number] [place] [id number] Nov, Dental examination V72.2 [facility] [place] [id number] [place] [address] 92204- 0390 Nov, [facility] [place] [id number] [place] [address] 62311- 9801 Nov, [facility] [place] [id number] [place] [address] 99609- 7132 Nov, Depressive disorder, not elsewhere classified 311 and No condition on Niles II V71.09 [facility] [place] [id number] [place] [address] 17230- 4538 Nov, Diabetes 250.00 and Symptomatic menopausal or female climacteric states 627.2 [facility] [place] [id number] [place] [address] 93157- 9763 Oct, [facility] [place] [id number] [place] [address] 21196- 4745 Oct, Lumbar strain 847.2 [facility] [place] [id number] [place] [address] 18982- 2890 Oct, Gastroparesis 536.3 and Unspecified myalgia and myositis 729.1 [facility] [place] [id number] [place] [address] 46564- 1084 Aug, [facility] [place] [id number] [place] [address] 93166- 8556 Aug, [facility] [place] [facility] [address] [id number] [place] [address]80 Jul, [facility] [place] [facility] [address] [id number] [place] [address]- 7878 Jul, [facility] [place] [facility] [address] [id number] [place] [address]- 7844 Jul, [facility] [place] [facility] [address] [id number] [place] [address]- 8157 Jul, [facility] [place] [facility] [address] [id number] [place] [address]- 8734 Jul, [facility] [place] [facility] [address] [id number] [place] [address]- 9641 Jun, [facility] [place] [facility] [address] [facility] [id number] [place] [address]- 8020 Jun, [facility] [place] [facility] [address] [facility] [id number] [place] [address]- 4774 Jun, [facility] [place] [facility] [address] [facility] [id number] [place] [address]- 5070 May, [facility] [place] [facility] [address] [facility] [id number] [place] [address] 7922 May, [facility] [place] [facility] [address] [facility] [id number] [place] [address]- 0893 Mar, [facility] [place] [facility] [address] [id number] [place] [address]- 8935 Mar, [facility] [place] [facility] [address] [id number] [place] [address]- 3068 Mar, [facility] [place] [facility] [address] [facility] [id number] [place] [address]- 6282 Mar, [facility] [place] [facility] [address] [facility] [id number] [place] [address]- 4782 Mar, [facility] [place] [facility] [address] [id number] [place] [address]- 4491 Mar, [facility] [address] [id number] [place] [address]- 6577 Feb, [facility] [place] [facility] [address] [id number] [place] [address]- 8211 Feb, [facility] [place] [facility] [address] [id number] [place] [address]- 6607 Nov, [facility] [place] [facility] [address] [id number] [place] [address]- 6876 Nov, [facility] [place] [facility] [address] [id number] [place] [address]- 0774 Nov, [facility] [address] [id number] [place] [address]- 9819 Oct, [facility] [place] [facility] [address] [id number] [place] [address]- 3679 September, [facility] [address] [id number] [place] [address]- 0754 Aug, [facility] [place] [facility] [address] [id number] [place] [address]- 2547 Aug, [facility] [place] [facility] [address] [id number] [place] [address]- 9652 Aug, [facility] [place] [facility] [address] [id number] [place] [address]- 1574 Aug, [facility] [place] [facility] [address] [id number] [place] [address]- 5346 Aug, [facility] [place] [facility] [address] [id number] [place] [address]- 0063 Aug, [facility] [place] [facility] [address] [id number] [place] [address]- 6238 Aug, [facility] [place] [facility] [address] [id number] [place] [address]- 2632 Aug, [facility] [address] [id number] [place] [address]- 4381 Jul, [facility] [address] [id number] [place] [address]- 9395 Jul, [facility] [address] [facility] [id number] [place] [address]- 7445 Jun, [facility] [address] [id number] [place] [address]- 3872 Jun, [facility] [address] [id number] [place] [address]- 4468 09 Jun, 2012 [facility] [address] [facility] [id number] [place] [address]- 9765 08 Jun, 2012 [facility] [address] [facility] [id number] [place] [address]- 1709 Jun, [facility] [address] [facility] [id number] [place] [address]- 4630 07 Jun, 2012 [facility] [address] [facility] [id number] [place] [address]- 4439 04 Jun, 2012 [facility] [address] [facility] [id number] [place] [address]- 8329 May, [facility] [address] [facility] [id number] [address]- 3828 May, [facility] [place] [facility] [address] [id number] [address]- 1296 May, [facility] [place] [facility] [address] [id number] [place] [address]- 1772 May, [facility] [place] [facility] [address] [facility] [id number] [place] [address]- 7218 Mar, [facility] [place] [facility] [address] [facility] [id number] [place] [address]- 3127 Mar, [facility] [place] [facility] [address] [facility] [id number] [place] [address] 24 Jan, 2012 IMMUNIZATIONS No Known Immunizations SOCIAL HISTORY Never Assessed REASON FOR VISIT Controlled Refill Request PLAN OF CARE VITAL SIGNS MEDICATIONS Unknown [...] vomitting-[facility] 03/05/17 Hospitalization History hospital stay at [facility] for stomach issues 2016
--- OUTSIDE RECORDS SUMMARY | 2018-01-27 20:39 | XMS REPORT ---
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 826863834 Problem PTSD (post-traumatic stress disorder) F43.10 Active 16935063 Problem Asthma exacerbation J45.901 Active 446695763 Problem Weight loss R63.4 Active 045373906 Problem Anorexia R63.0 Active 15483616 Problem Primary insomnia F51.01 Active 1714823 Problem History of colon polyps Z86.010 Active 445883098 Problem Neuropathy G62.9 Active 523860246 Problem Diabetes E11.9 Active 38159473 Problem Depressive disorder, not elsewhere classified 311 Active 65338841 Problem Gastroparesis K31.84 Active 138539123 Problem Back pain M54.9 Active 319500438 Problem Mixed hyperlipidemia E78.2 Active 312148210 ALLERGIES No Information ENCOUNTERS Encounter Location Date Diagnosis [facility] [id number] [id number] Aug, [facility] [address], [place] [address] 9329 Aug, [facility] [id number] [place] [address] 31628- 5743 Aug, [facility] [address], [place] [address] 6640 Aug, [facility] [address] [place] [address] 63128- 0792 Jul, [facility] [address] [place] [address] 23210- 3706 Jul, Other dorsalgia M54.89 [facility] [id number] [place] [address] 90257- 2366 Jul, [facility] [id number] [place] [address] 30416 2546 Jul, [facility] [id number] [place] [address] 14484 2546 Jul, PTSD (post-traumatic stress disorder) F43.10 [facility] [id number] [place] [address] 79970- 5756 Jul, [facility] [id number] [place] [address] 89849- 2176 Jul, [facility] [id number] [place] [address] 66831- 7636 Jul, [facility] [id number] [place] [address] 03448 2546 Jul, Anorexia R63.0 [facility] [id number] [place] [address] 71948- 3676 Jun, [facility] [id number] [place] [address] 62077- 5616 Jun, Vaginal discharge N89.8 ; Visit for gynecologic examination Z01.419 and Pelvic pressure in female R10.2 [facility] [address] [place] [address] 74669 2546 Jun, [facility] [id number] [place] [address] 94379- 3276 Jun, Other dorsalgia M54.89 [facility] [address] [place] [address] 53282- 5086 16 Jun, 2017 [facility] [id number] [place] [address] 42964- 0210 Jun, [facility] [address] 61428- 0223 Jun, [facility] [address] 88210- 9642 May, Back pain M54.9 [facility] [address] 89365- 6631 May, Anorexia R63.0 [facility] [address] 53475- 4449 May, Other dorsalgia M54.89 [facility] [address] 23008- 2885 May, [facility] [address] 20450- 8019 May, Bronchitis J40 [facility] [address] 07188- 2346 May, Type 2 diabetes mellitus with diabetic autonomic (poly) neuropathy E11.43 ; 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 ; Back pain M54.9 and Neuropathy G62.9 [facility] [id number] [place] [address] 33300- 1222 May, Left breast mass N63.20 [facility] [address] 05710- 4792 May, [facility] [id number] [place] [address] 56121- 0846 Apr, Other dorsalgia M54.89 [facility] [address] 64199- 1036 Apr, Anorexia R63.0 [facility] [address] 66922- 5298 Apr, Anorexia R63.0 [facility] [address] [place] [address]- 9583 Apr, Mass of left breast N63.20 [facility] [id number] [place] [address] 37450- 6441 Apr, [facility] [address] 79998- 9814 Apr, [facility] [address] 29448- 8253 Apr, Diarrhea of presumed infectious origin A09 [facility] [address] 86694- 7335 Apr, Encounter for immunization Z23 [facility] [address] 55065- 8697 Apr, [facility] [address] 64969- 2952 Mar, Other dorsalgia M54.89 [facility] [id number] [place] [address] 90954- 6892 Mar, [facility] [id number] [place] [address] 84169- 3394 Mar, [facility] [id number] [place] [address] 33323- 1491 Mar, Anorexia R63.0 [facility] [id number] [place] [address] 70049- 8923 Mar, [facility] [id number] [place] [address] 20330- 2544 Mar, Other dorsalgia M54.89 [facility] [id number] [place] [address] 59921- 4049 Mar, [facility] [id number] [place] [address] 76292- 7154 Mar, Encounter for immunization Z23 [facility] [address] 70060- 8475 Feb, Anorexia R63.0 [facility] [id number] [place] [address] 08583- 4621 Feb, Diabetes E11.9 [facility] [id number] [place] [address] 85537- 8684 Feb, Back pain M54.9 and Diabetes E11.9 [facility] [address] 66003- 7508 Feb, Diabetes E11.9 [facility] [address] 32687- 7736 Feb, Neuropathy G62.9 [facility] [address] 30126- 9571 Feb, Encounter for immunization Z23 ; Epigastric pain R10.13 ; Weight loss, abnormal R63.4 and Neuropathy G62.9 [facility] [address] [id number] Feb, [facility] [address] 79595- 5481 Feb, [facility] [address] 67993- 4811 Feb, Intractable vomiting with nausea, unspecified vomiting type R11.2 [facility] [id number] [place] [address] 98897 -7428 Feb, Chronic nausea R11.0 [facility] [id number] [place] [address] 72714- 8485 Feb, Other dorsalgia M54.89 [facility] [address] 37927- 0501 Jan, [facility] [id number] [place] [address] 76538- 2895 Jan, [facility] [address] 16147- 6902 Jan, [facility] [id number] [place] [address] 48532 2546 Jan, [facility] [id number] [place] [address] 77992 2546 Jan, Asthma exacerbation J45.901 ; Bronchitis J40 and Neuropathy G62.9 [facility] [address] 02363 2546 Jan, Anorexia R63.0 [facility] [id number] [place] [address] 07242- 2546 Jan, Other dorsalgia M54.89 [facility] [id number] [place] [address] 98747- 4406 Dec, [facility] [id number] [place] [address] 84562- 2146 Dec, [facility] [id number] [place] [address] 42970 2546 Dec, Anorexia R63.0 [facility] [id number] [place] [address] 00197- 2266 Dec, Primary insomnia F51.01 [facility] [id number] [place] [address] 83733 2546 Dec, Other dorsalgia M54.89 [facility] [id number] [place] [address] 10144 2546 Dec, [facility] [id number] [place] [address] 03358 2546 Nov, [facility] [id number] [place] [address] 97509 2546 Nov, [facility] [id number] [place] [address] 41111 2546 Nov, [facility] [id number] [place] [address] 24935 5120 Nov, History of colon polyps Z86.010 [facility] [id number] [place] [address] 18177- 3842 Nov, Weight loss R63.4 ; Nausea and vomiting, intractability of vomiting not specified, unspecified vomiting type R11.2 and Abnormal LFTs R79.89 [facility] [id number] [place] [address] 77204- 3714 Nov, [facility] [address] 46772- 5469 Nov, Neuropathy G62.9 and Pain in right knee M25.561 [address] 25008- 0289 Nov, Back pain M54.9 [facility] [id number] [place] [address] 48690- 5268 10 Nov, 2016 [facility] [address] 62318- 3663 Nov, Bronchitis J40 [facility] [id number] [place] [address] 94909- 7926 03 Nov, 2016 Weight loss R63.4 [facility] [id number] [place] [address] 47229- 9782 Oct, Back pain M54.9 [facility] [id number] [place] [address] 92904- 4692 16 Oct, 2016 [facility] [id number] [place] [address] 37218- 2016 14 Oct, 2016 Back pain M54.9 [facility] [address] 98790- 6566 13 Oct, 2016 Type 2 diabetes mellitus without complications E11.9 and Bronchitis J40 [facility] [id number] [place] [address] 29766- 8700 05 Oct, 2016 [facility] [id number] [place] [address] 42799- 0650 Oct, [facility] [place] [id number] [place] [address] 55222- 3168 September, Gastroparesis K31.84 ; Type 2 diabetes mellitus with diabetic autonomic (poly)neuropathy E11.43 and Neuropathy G62.9 [facility] [id number] [place] [address] 84145- 8181 September, Other dorsalgia M54.89 [facility] [id number] [place] [address] 98846- 3080 September, [facility] [facility] [id number] [place] [address] 06784- 1225 September, [facility] [id number] [place] [address] 24670- 8540 Aug, Gastroparesis K31.84 and Radicular leg pain M54.10 [facility] [id number] [place] [address] 27964- 3013 Aug, Anorexia R63.0 [facility] [id number] [place] [address] 51883- 7797 Aug, Bronchitis J40 [address] [id number] [place] [address] 50580- 7086 Aug, Back pain M54.9 [facility] [facility] [id number] [place] [address] 94906- 4329 Aug, Routine gynecological examination Z01.419 ; Routine screening for STI (sexually transmitted infection) Z11.3 and Yeast infection of the vagina B37.3 [address] [facility] [id number] [place] [address] 13990- 5608 Jul, Other dorsalgia M54.89 [facility] [facility] [id number] [place] [address] 87345- 1046 Jul, Diabetes E11.9 and Gastroparesis K31.84 [address] [place] [address] [place] [address] 86591- 4519 Jun, [facility] [address] 53486- 4803 24 Jun, 2016 Back pain M54.9 [facility] [address] 13916- 5606 14 Jun, 2016 Neuropathy G62.9 [facility] [address] [id number] 02 Jun, 2016 Encounter for dental examination Z01.20 [facility] [address] 83635- 6605 Jun, Gastroparesis 536.3 and Anorexia R63.0 [facility] [address] 92096- 4624 May, Other dorsalgia M54.89 [facility] [address] 18974- 3377 May, Periumbilical abdominal pain R10.33 ; Weight loss R63.4 and Gastroparesis K31.84 [facility] [address] 80540- 9032 May, Back pain M54.9 [facility] [address] 66532- 6353 Apr, Anorexia R63.0 [facility] [address] 35977- 6139 Apr, Anorexia R63.0 [facility] [address] 42963- 5118 Apr, Back pain M54.9 [facility] [address] 69969- 6471 Apr, Back pain M54.9 [facility] [address] 37973- 5329 Apr, [facility] [id number] [place] [address] 32418- 2212 Apr, Bronchitis J40 and Neuropathy G62.9 [facility] [address] 19295- 2417 Apr, Neuropathy G62.9 [address] [place] [address] 54401- 0292 Apr, [address] [place] [address] 52661- 2333 Apr, Back pain M54.9 [address] [place] [address] 66440- 7680 Mar, Type 2 diabetes mellitus with diabetic autonomic (poly) neuropathy E11.43 [address] [address] 87262- 5191 Mar, Type 2 diabetes mellitus without complications E11.9 [address] [facility] [address] 45551- 6271 Mar, Neuropathy G62.9 [address] [place] [address] 55780- 1339 Mar, [facility] [id number] [place] [address] 92330- 3367 Mar, Breast cancer screening Z12.39 [address] [place] [address] 43086- 0284 Mar, Other dorsalgia M54.89 [facility] [id number] [place] [address] 58943- 9740 Feb, [address] [address] 50733- 6353 Jan, Neuropathy G62.9 ; Type 2 diabetes mellitus with diabetic autonomic (poly)neuropathy E11.43 ; Uncomplicated asthma, unspecified asthma severity J45.909 and Encounter for immunization Z23 [address] [place] [address] 22519- 1708 Jan, [facility] [address], [place] [address]- 8424 Jan, [facility] [address] [place] [address] 09080- 8330 Dec, [facility] [address] [place] [address] 31942- 6646 Dec, [facility] [id number] [place] [address] 44804- 9070 Nov, [facility] [address] [place] [address] 10740- 9012 Nov, Back pain M54.9 [facility] [id number] [place] [address] 22090- 0525 Nov, Neuropathy G62.9 ; Mixed hyperlipidemia E78.2 ; Type 2 diabetes mellitus with diabetic autonomic (poly)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 and 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 [facility] [address], [place] [address]- 3072 Oct, [facility] [id number] [place] [address] 40410- 0613 Oct, Other dorsalgia M54.89 [facility] [id number] [place] [address] 67143- 3384 September, Primary insomnia F51.01 [facility] [address], [place] [address]- 4391 September, [facility] [address], [place] [address]- 7547 Aug, Other dorsalgia M54.89 [facility] [address], [place] [address]- 7137 Jul, [facility] [address], [place] [address]- 2505 Jul, Other dorsalgia M54.89 [facility] [id number] [place] [address] 63609- 6520 Jul, Diabetes E11.9 ; Back pain M54.9 ; Neuropathy G62.9 and Gastroparesis K31.84 [facility] [id number] [place] [address] 63566- 2223 Jun, [facility] [address] 64373- 2036 Jun, Other dorsalgia M54.89 [facility] [id number] [place] [address] 13959- 6617 May, [facility] [address] 78465- 2671 May, Radicular leg pain M54.10 and Other dorsalgia M54.89 [facility] [id number] [place] [address] 26469- 9311 Apr, [facility] [id number] [place] [address] 93878- 0289 Mar, [facility] [id number] [place] [address] 01371- 8289 Mar, [facility] [id number] [place] [address] 24659- 3441 Mar, Radicular leg pain M54.10 [facility] [id number] [place] [address] 51650- 3470 Feb, [facility] [id number] [place] [address] 93356- 1613 Feb, [facility] [id number] [place] [address] 20278- 1134 Feb, [facility] [id number] [place] [address] 05613- 9546 Jan, [facility] [address] 18930- 7953 Jan, IBS (irritable bowel syndrome) 564.1 [facility] [address] [place] [address] 13219- 1406 Jan, [facility] [id number] [place] [address] 12992- 6004 Jan, [facility] [id number] [place] [address] 27221- 7983 Jan, Diabetes mellitus without mention of complication, type II or unspecified type, not stated as uncontrolled 250.00 ; Gastroparesis 536.3 and Hypoacusis 389.9 [facility] [id number] [place] [address] 59911- 1567 Jan, [facility] [id number] [place] [address] 31789- 2517 Jan, [facility] [id number] [place] [address] 17710- 0858 Dec, [facility] [id number] [place] [address] 32897- 5416 Dec, [facility] [id number] [place] [address] 75710- 3044 Dec, [facility] [address] [place] [address] 07340- 1382 Dec, Back pain 724.5 and Gastroparesis 536.3 [facility] [address] [place] [address] 30558- 9536 Nov, [facility] [address] [id number] Nov, Dental examination V72.2 [facility] [address], [place] [address]- 7710 Nov, [facility] [address], [place] [address]- 2800 Nov, [facility] [address] [address]- 3486 Nov, Depressive disorder, not elsewhere classified 311 and No condition on [place] II V71.09 [facility] [address] 4437 Nov, Diabetes 250.00 and Symptomatic menopausal or female climacteric states 627.2 [facility] [id number] [place] [address] 73902- 1656 Oct, [facility] [id number] [place] [address] 34516- 0281 Oct, Lumbar strain 847.2 [facility] [id number] [place] [address] 107297- 6625 Oct, Gastroparesis 536.3 and Unspecified myalgia and myositis 729.1 [facility] [id number] [place] [address] 54927- 8404 Aug, [facility] [address], [place] [address]- 2782 Aug, [facility] [address], [place] [address]- 5797 Jul, [facility] [address], [place] [address]- 0322 Jul, [facility] [address], [place] [address]- 9444 Jul, [facility] [address], [place] [address]- 3236 Jul, [facility] [address]- 7423 Jul, [facility] [address]- 4521 Jun, [facility] [address] 1027 Jun, [facility] [place] [facility] [address] [id number] [place] [address]- 6621 Jun, [facility] [place] [facility] [address] [id number] [place] [address]- 2031 May, [facility] [place] [facility] [address] [id number] [place] [address]- 2677 May, [facility] [place] [facility] [address] [id number] [place] [address]- 5608 Mar, [facility] [place] [facility] [address] [id number] [place] [address]- 7308 Mar, [facility] [place] [facility] [address] [id number] [place] [address]- 3049 Mar, [facility] [place] [facility] [address] [id number] [place] [address]- 4747 Mar, [facility] [place] [facility] [address] [id number] [place] [address]- 8346 Mar, [facility] [place] [facility] [address] [id number] [place] [address]- 1493 Mar, [facility] [place] [facility] [address] [id number], [place] [address]- 2289 Feb, [facility] [place] [facility] [address] [id number], [place] [address]- 6601 Feb, [facility] [place] [facility] [address] [id number], [place] [address]- 4593 Nov, [facility] [place] [facility] [address] [id number] [place] [address]- 0221 Nov, [facility] [place] [facility] [address] [id number], [place] [address] Nov, [facility] [place] [facility] [address] [id number], [place] [address] Oct, [facility] [place] [facility] [address] [id number], [place] [address] September, [facility] [address] [id number] [place] [address] Aug, [facility] [address] [id number] [place] [address] 15 Aug, 2012 [facility] [address] [facility] [id number] [place] [address] Aug, [facility] [address] [id number] [place] [address] Aug, [facility] [address] [id number] [place] [address] Aug, [facility] [address] [facility] [id number] [place] [address] Aug, [facility] [address] [id number] [place] [address] Aug, [facility] [address] [id number] [place] [address] Aug, [facility] [address] [id number] [place] [address] Jul, [facility] [address] [id number] [place] [address] Jul, [facility] [address] [id number] [place] [address] Jun, [facility] [place] [facility] [address] [id number] [place] [address] Jun, [facility] [place] [facility] [address] [id number] [place] [address] Jun, [facility] [place] [facility] [address] [id number], [place] [address] Jun, [facility] [facility] [address] [facility] [id number] [address] 07 Jun, 2012 [facility] [address] [facility] [id number], [place] [address] Jun, [facility] [address] [id number] [address] Jun, [facility] [address] [id number] [address] May, [facility] [id number] [address] May, [facility] [address] [id number] [address] May, [facility] [id number] [address] May, [facility] [id number] [address] Mar, [facility] [address] [id number], [place] [address] Mar, [facility] [address] [facility] [id number], [place] [address] Jan, IMMUNIZATIONS No Known Immunizations SOCIAL HISTORY Never Assessed REASON FOR VISIT Oxycodone Saturday 12/09 PLAN OF CARE VITAL SIGNS MEDICATIONS Medication Instructions Dosage Frequency Start Date End Date Duration Status Oxycodone-Acetaminophen 10-325 MG Orally 3 times a day 1 tablet as needed 8h Nov, 28 days Active RESULTS No Results PROCEDURES [...] vomitting-[facility] 03/05/17 Hospitalization History hospital stay at [facility] for stomach issues 2016
--- OUTSIDE RECORDS SUMMARY | 2018-01-27 20:39 | XMS REPORT ---
Author Author HORACE HIGGINS [facility] Address [address] [place] [address] Care Team Providers Care Veterans Service Officer Name Role Phone HORACE HIGGINS Unavailable PROBLEMS Type Condition ICD9-CM Code WEG77-IY Code Onset Dates Condition Status SNOMED Code Problem Weight loss R63.4 Active 537758782 Problem Primary insomnia F51.01 Active 3650925 Problem History of colon polyps Z86.010 Active 410883305 Problem Annual physical exam Z00.00 Active 392639646 Problem Migraine without aura and without status migrainosus, not intractable G43.009 Active 696417929 Problem Reactive depression F32.9 Active 41129595 Problem Asthma exacerbation J45.901 Active 422726128 Problem PTSD (post-traumatic stress disorder) F43.10 Active 08171630 Problem Diabetic polyneuropathy associated with type 2 diabetes mellitus E11.42 Active 83706513 Problem Neuropathy G62.9 Active 155031542 Problem Diabetes E11.9 Active 82078495 Problem Low TSH level R94.6 Active 802997457 Problem Back pain M54.9 Active 630212102 Problem Mixed hyperlipidemia E78.2 Active 167749899 Problem Type 2 diabetes mellitus with diabetic autonomic (poly)neuropathy E11.43 Active 08038820 Problem Gastroparesis K31.84 Active 348770637 Problem Uncomplicated asthma, unspecified asthma severity J45.909 Active 467990995 Problem hide puller current use of insulin Z79.4 Active 345694943 Problem Anorexia R63.0 Active 93290597 ALLERGIES No Information ENCOUNTERS Encounter Location Date Diagnosis [facility] [address] [address] September, [facility] [id number] [address] September, [facility] [id number] [place] [address] 09101- 9537 September, Low TSH level R94.6 [place] [address] 345269- 8203 September, Other dorsalgia M54.89 [place] [address] [id number]- [address]136 September, Annual physical exam Z00.00 and Migraine without aura and without status migrainosus, not intractable G43.009 [place] [address] [id number]- 2412 September, Abnormal TSH R94.6 and Dysfunction of left eustachian tube H69.82 [place] [address] 7184 Aug, [place] [address] 04844- 974 Aug, Anorexia R63.0 [facility] [address] [id number] Aug, Dental examination Z01.20 and Xerostomia K11.7 [place] [address] 82183- 6799 Aug, Neuropathy G62.9 [place] [address] 22790- 2987 Aug, [place] [address] 48274- 0459 Aug, Other dorsalgia M54.89 [place] [address] 08400- 4863 Aug, Type 2 diabetes mellitus with diabetic autonomic (poly) neuropathy E11.43 ; Diabetic polyneuropathy associated with type 2 diabetes mellitus E11.42 ; Bronchitis J40 ; Gastroparesis K31.84 and Reactive depression F32.9 [place] [address] 74256- 5372 Aug, PTSD (post-traumatic stress disorder) F43.10 [facility] [address], [place] [address] 2546 Aug, Other dorsalgia M54.89 and Anorexia R63.0 [facility] [id number] [place] [address] 12984 2546 Jul, [facility] [id number] [place] [address] 28845 2546 Jul, Other dorsalgia M54.89 [facility] [id number] [place] [address] 72746 2546 Jul, [facility] [id number] [place] [address] 83800 2546 Jul, [facility] [id number] [place] [address] 73608 2546 Jul, PTSD (post-traumatic stress disorder) F43.10 [facility] [id number] [place] [address] 42503 2546 Jul, [facility] [id number] [place] [address] 49413 2546 Jul, [facility] [id number] [place] [address] 61406 2546 Jul, [facility] [id number] [place] [address] 89439 2546 Jul, Anorexia R63.0 [facility] [id number] [place] [address] 67693 2546 Jun, [facility] [id number] [place] [address] 43428 2546 Jun, Vaginal discharge N89.8 ; Visit for gynecologic examination Z01.419 and Pelvic pressure in female R10.2 [facility] [address], [place] [address] 2546 Jun, [facility] [id number] [place] [address] 45984- 3685 Jun, Other dorsalgia M54.89 [facility] [id number] [place] [address] 64250- 5544 Jun, [facility] [id number] [place] [address] 73799- 3786 Jun, [facility] [address] 17798- 7081 Jun, [facility] [address] 91610- 8515 May, Back pain M54.9 [facility] [address] 49653- 0742 May, Anorexia R63.0 [facility] [address] 25398- 3781 May, Other dorsalgia M54.89 [facility] [id number] [place] [address] 97957- 5368 May, [facility] [address] 26537- 3279 May, Bronchitis J40 [facility] [id number] [place] [address] 23703- 2722 May, Type 2 diabetes mellitus with diabetic autonomic (poly) neuropathy E11.43 ; hide puller current use of insulin Z79.4 ; Back pain M54.9 and Neuropathy G62.9 [facility] [id number] [place] [address] 86913- 0427 May, Left breast mass N63.20 [facility] [id number] [place] [address] 91517- 0272 May, [facility] [id number] [place] [address] 59551- 7786 Apr, Other dorsalgia M54.89 [facility] [id number] [place] [address] 99325- 0494 Apr, Anorexia R63.0 [facility] [address] 72320- 2286 Apr, Anorexia R63.0 [facility] [id number] [place] [address] 69678- 1506 Apr, Mass of left breast N63.20 [facility] [address] 96462- 7723 Apr, [facility] [address] 28560- 8995 Apr, [facility] [address] 44478- 6658 Apr, Diarrhea of presumed infectious origin A09 [facility] [address] 30324- 0353 Apr, Encounter for immunization Z23 [facility] [address] 06657- 7057 Apr, [facility] [address] 64101- 8362 Mar, Other dorsalgia M54.89 [facility] [id number] [place] [address] 97954- 3187 Mar, [facility] [id number] [place] [address] 47141- 3435 Mar, [facility] [id number] [place] [address] 06841 2542 Mar, Anorexia R63.0 [facility] [address] 41601- 6546 Mar, [facility] [id number] [place] [address] 81937- 5109 Mar, Other dorsalgia M54.89 [facility] [address] [place] [address]- 6719 Mar, [facility] [id number] [place] [address] 09623- 4904 Mar, Encounter for immunization Z23 [facility] [id number] [place] [address] 61768- 4102 Feb, Anorexia R63.0 [facility] [address] 89083- 3550 Feb, Diabetes E11.9 [facility] [address] 45843- 7676 Feb, Back pain M54.9 and Diabetes E11.9 [facility] [id number] [place] [address] 35576- 7435 Feb, Diabetes E11.9 [facility] [id number] [place] [address] 45861- 1031 Feb, Neuropathy G62.9 [facility] [id number] [place] [address] 52242- 4748 Feb, Encounter for immunization Z23 ; Epigastric pain R10.13 ; Weight loss, abnormal R63.4 and Neuropathy G62.9 [facility] [id number] [place] [address] [id number] Feb, [facility] [id number] [place] [address] 05116- 5215 Feb, [facility] [id number] [place] [address] 62808- 4109 Feb, Intractable vomiting with nausea, unspecified vomiting type R11.2 [facility] [id number] [place] [address] 52271 -1902 Feb, Chronic nausea R11.0 [facility] [id number] [place] [address] 68407- 5877 Feb, Other dorsalgia M54.89 [facility] [address], [place] [address] 2546 Jan, [facility] [id number] [place] [address] 61066 2546 Jan, [facility] [id number] [place] [address] 37215 2546 Jan, [facility] [id number] [place] [address] 52500 2546 Jan, [facility] [id number] [place] [address] 49676 2546 Jan, Asthma exacerbation J45.901 ; Bronchitis J40 and Neuropathy G62.9 [facility] [id number] [place] [address] 22594 2546 Jan, Anorexia R63.0 [facility] [id number] [place] [address] 40462 2546 Jan, Other dorsalgia M54.89 [facility] [id number] [place] [address] 55214 2546 Dec, [facility] [id number] [place] [address] 59623 2546 Dec, [facility] [id number] [place] [address] 85371 2546 Dec, Anorexia R63.0 [facility] [id number] [place] [address] 11234 2546 14 Dec, 2016 Primary insomnia F51.01 [facility] [id number] [place] [address] 86711 2546 Dec, Other dorsalgia M54.89 [facility] [id number] [place] [address] 06595 2546 Dec, [facility] [id number] [place] [address] 63042 2546 Nov, [facility] [id number] [place] [address] 21117- 7733 Nov, [facility] [id number] [place] [address] 64986- 2095 Nov, [facility] [address] 70747- 7863 Nov, History of colon polyps Z86.010 [facility] [address] 51098- 2967 Nov, Weight loss R63.4 ; Nausea and vomiting, intractability of vomiting not specified, unspecified vomiting type R11.2 and Abnormal LFTs R79.89 [facility] [address] 90845- 3187 Nov, [facility] [address] 15365- 7868 Nov, Neuropathy G62.9 and Pain in right knee M25.561 [facility] [address] 74356- 2770 Nov, Back pain M54.9 [facility] [address] 74815- 3244 Nov, [facility] [address] 69750- 6119 Nov, Bronchitis J40 [facility] [id number] [place] [address] 07036- 4223 Nov, Weight loss R63.4 [facility] [id number] [place] [address] 50795- 7923 Oct, Back pain M54.9 [facility] [address] 39607- 5468 Oct, [facility] [address] 84208- 0774 14 Oct, 2016 Back pain M54.9 [facility] [address] [place] [address]- 4999 Oct, Type 2 diabetes mellitus without complications E11.9 and Bronchitis J40 [place] [address] 00271- 5367 Oct, [facility] [address] 76939- 5451 Oct, [place] [address] 59031- 2752 September, Gastroparesis K31.84 ; Type 2 diabetes mellitus with diabetic autonomic (poly)neuropathy E11.43 and Neuropathy G62.9 [place] [address] 70900- 5319 September, Other dorsalgia M54.89 [place] [address] 04296- 2594 September, [place] [address] 56481- 9978 September, [place] [address] 78320- 5205 Aug, Gastroparesis K31.84 and Radicular leg pain M54.10 [place] [id number] [place] [address] 75849- 9140 Aug, Anorexia R63.0 [place] [address] 59291- 4162 Aug, Bronchitis J40 [place] [id number] [place] [address] 81264- 1921 Aug, Back pain M54.9 [place] [address] 77508- 3734 Aug, Routine gynecological examination Z01.419 ; Routine screening for STI (sexually transmitted infection) Z11.3 and Yeast infection of the vagina B37.3 [place] [address] 17524- 0083 Jul, Other dorsalgia M54.89 [facility] [id number] [place] [address] 16649- 5992 Jul, Diabetes E11.9 and Gastroparesis K31.84 [facility] [id number] [place] [address] 51724- 1954 Jun, [facility] [address] 11471- 6193 Jun, Back pain M54.9 [facility] [id number] [place] [address] 35296- 4646 Jun, Neuropathy G62.9 [facility] [address] [id number] 02 Jun, 2016 Encounter for dental examination Z01.20 [facility] [address] 63339- 5634 Jun, Gastroparesis 536.3 and Anorexia R63.0 [facility] [id number] [place] [address] 84129- 3427 May, Other dorsalgia M54.89 [facility] [id number] [place] [address] 21619- 2663 May, Periumbilical abdominal pain R10.33 ; Weight loss R63.4 and Gastroparesis K31.84 [facility] [id number] [place] [address] 81136- 4008 May, Back pain M54.9 [facility] [id number] [place] [address] 76751- 4315 Apr, Anorexia R63.0 [facility] [address] 54695- 9865 Apr, Anorexia R63.0 [facility] [id number] [place] [address] 88963- 1124 Apr, Back pain M54.9 [facility] [id number] [place] [address] 62416- 3974 Apr, Back pain M54.9 [facility] [id number] [place] [address] 32808- 6576 Apr, [facility] [id number] [place] [address] 50784- 0636 Apr, Bronchitis J40 and Neuropathy G62.9 [facility] [id number] [place] [address] 33753- 0784 Apr, Neuropathy G62.9 [facility] [address] 25022- 1946 Apr, [facility] [id number] [place] [address] 57201- 6612 Apr, Back pain M54.9 [facility] [id number] [place] [address] 17623- 6490 Mar, Type 2 diabetes mellitus with diabetic autonomic (poly) neuropathy E11.43 [facility] [id number] [place] [address] 17210- 0885 Mar, Type 2 diabetes mellitus without complications E11.9 [facility] [id number] [place] [address] 64907- 6800 Mar, Neuropathy G62.9 [facility] [id number] [place] [address] 30854- 2338 Mar, [facility] [id number] [place] [address] 38809- 8495 Mar, Breast cancer screening Z12.39 [facility] [id number] [place] [address] 77270- 7883 Mar, Other dorsalgia M54.89 [facility] [id number] [place] [address] 19343- 3576 Feb, [facility] [address] [place] [address]- 9278 30 Jan, 2016 Neuropathy G62.9 ; Type 2 diabetes mellitus with diabetic autonomic (poly)neuropathy E11.43 ; Uncomplicated asthma, unspecified asthma severity J45.909 and Encounter for immunization Z23 [facility] [id number] [place] [address] 34763- 5941 09 Jan, 2016 [facility] [id number] [place] [address] 47546- 6301 Jan, [facility] [id number] [place] [address] 50893- 5764 Dec, [facility] [id number] [place] [address] 00183- 0531 Dec, [facility] [id number] [place] [address] 03002- 7668 Nov, [facility] [id number] [place] [address] 33905- 9421 Nov, Back pain M54.9 [facility] [id number] [place] [address] 58271- 0132 Nov, Neuropathy G62.9 ; Mixed hyperlipidemia E78.2 ; Type 2 diabetes mellitus with diabetic autonomic (poly)neuropathy E11.43 and hide puller current use of insulin Z79.4 [facility] [id number] [place] [address] 99644- 6806 Oct, [facility] [id number] [place] [address] 68891- 4676 Oct, Other dorsalgia M54.89 [facility] [id number] [place] [address] 31633- 9023 September, Primary insomnia F51.01 [facility] [id number] [place] [address] 45274- 5539 September, [facility] [id number] [place] [address] 44929- 1697 Aug, Other dorsalgia M54.89 [facility] [id number] [place] [address] 60773- 1890 Jul, [facility] [id number] [place] [address] 70272- 6246 Jul, Other dorsalgia M54.89 [facility] [id number] [place] [address] 16195- 7475 Jul, Diabetes E11.9 ; Back pain M54.9 ; Neuropathy G62.9 and Gastroparesis K31.84 [facility] [id number] [place] [address] 53541- 3537 Jun, [facility] [address] 17566- 1062 Jun, Other dorsalgia M54.89 [facility] [id number] [place] [address] 64169- 0770 May, [facility] [id number] [place] [address] 62937- 0227 May, Radicular leg pain M54.10 and Other dorsalgia M54.89 [facility] [id number] [place] [address] 70470- 1859 Apr, [facility] [id number] [place] [address] 84018- 1163 Mar, [facility] [id number] [place] [address] 68009- 2767 Mar, [facility] [id number] [place] [address] 36112- 1859 Mar, Radicular leg pain M54.10 [facility] [id number] [place] [address] 25924- 3242 Feb, [facility] [id number] [place] [address] 03283- 4684 Feb, [facility] [id number] [place] [address] 48124- 6598 Feb, [facility] [id number] [place] [address] 42426- 1098 Jan, [facility] [id number] [place] [address] 06971- 2833 Jan, IBS (irritable bowel syndrome) 564.1 [facility] [id number] [place] [address] 31871- 5403 Jan, [facility] [id number] [place] [address] 78309- 2827 Jan, [facility] [id number] [place] [address] 18695- 1293 Jan, Diabetes mellitus without mention of complication, type II or unspecified type, not stated as uncontrolled 250.00 ; Gastroparesis 536.3 and Hypoacusis 389.9 [facility] [id number] [place] [address] [phone]- 9073 Jan, [facility] [id number] [place] [address] 01461- 9817 Jan, [facility] [id number] [place] [address] 52840- 4836 Dec, [facility] [id number] [place] [address] 26344- 5835 Dec, [facility] [id number] [place] [address] 80392- 3314 Dec, [facility] [id number] [place] [address] 98605- 9945 Dec, Back pain 724.5 and Gastroparesis 536.3 [facility] [id number] [place] [address] 89496- 2355 Nov, [facility] [id number] [place] [address] [id number] Nov, Dental examination V72.2 [facility] [id number] [address] 6344 Nov, [facility] [id number] [place] [address] 71292- 7487 Nov, [facility] [id number] [place] [address] 56403- 6299 Nov, Depressive disorder, not elsewhere classified 311 and No condition on [place] II V71.09 [facility] [id number] [place] [address] 13382- 1728 Nov, Diabetes 250.00 and Symptomatic menopausal or female climacteric states 627.2 [facility] [id number] [place] [address] 58262- 6951 Oct, [facility] [id number] [place] [address] 99696- 4060 Oct, Lumbar strain 847.2 [facility] [id number] [place] [address] 15302- 0760 Oct, Gastroparesis 536.3 and Unspecified myalgia and myositis 729.1 [facility] [id number] [address] 2751 Aug, [facility] [id number] [place] [address] 0848 Aug, [facility] [id number] [place] [address] 4683 Jul, [facility] [id number] [place] [address]- 3790 Jul, [facility] [id number] [place] [address] 76109- 3568 Jul, [facility] [address] [id number] [address] Jul, [facility] [id number] [place] [address] Jul, [facility] [place] [facility] [address] [id number] [place] [address] Jun, [facility] [place] [facility] [address] [id number] [place] [address] Jun, [facility] [place] [facility] [address] [id number] [place] [address] Jun, [facility] [place] [facility] [address] [id number] [place] [address] May, [facility] [place] [facility] [address] [id number] [place] [address] May, [facility] [place] [facility] [address] [id number] [place] [address] Mar, [facility] [place] [facility] [address] [id number] [place] [address] Mar, [facility] [place] [facility] [address] [id number] [place] [address]68 Mar, [facility] [place] [facility] [address] [id number] [place] [address] Mar, [facility] [place] [facility] [address] [facility] [id number] [place] [address] Mar, [facility] [place] [facility] [address] [id number] [place] [address] Mar, [facility] [place] [facility] [address] [id number] [place] [address] Feb, [facility] [place] [facility] [address] [id number] [place] [address] Feb, [facility] [place] [facility] [address] [id number] [place] [address] Nov, [facility] [place] [facility] [address] [id number] [place] [address] Nov, [facility] [place] [facility] [address] [id number] [place] [address] Nov, [facility] [address] [id number] [place] [address] Oct, [facility] [place] [facility] [address] [id number] [place] [address] September, [facility] [address] [id number] [place] [address] Aug, [facility] [address] [id number] [place] [address] Aug, [facility] [place] [facility] [address] [id number] [place] [address]- [address] Aug, [facility] [address] [id number] [place] [address] Aug, [facility] [address] [id number] [place] [address] Aug, [facility] [address] [id number] [place] [address] Aug, [facility] [address] [id number] [place] [address] Aug, [facility] [place] [facility] [address] [id number] [place] [address] Aug, [facility] [place] [facility] [address] [id number] [place] [address] Jul, [facility] [place] [facility] [address] [id number] [place] [address] Jul, [facility] [place] [facility] [address] [id number] [place] [address] Jun, [facility] [place] [facility] [address] [id number] [place] [address] Jun, [facility] [place] [facility] [address] [id number] [address] 09 Jun, 2012 [facility] [id number], [place] [address] 08 Jun, 2012 [facility] [id number], [place] [address] Jun, [facility] [id number], [place] [address] Jun, [facility] [id number], [place] [address] Jun, [facility] [id number], [place] [address] May, [facility] [id number], [place] [address] May, [facility] [id number], [place] [address] May, [facility] [id number], [place] [address] May, [facility] [id number], [place] [address] Mar, [facility] [id number], [place] [address] Mar, [facility] [id number], [place] [address] Jan, IMMUNIZATIONS No Known Immunizations SOCIAL HISTORY Never Assessed REASON FOR VISIT PLAN OF CARE VITAL SIGNS MEDICATIONS Medication Instructions Dosage Frequency Start Date End Date Duration Status Zofran ODT 8 MG Orally every 6 hrs 1 tablet 6h Active RESULTS No Results PROCEDURES No Known [...]
--- OUTSIDE RECORDS SUMMARY | 2018-01-27 20:40 | XMS REPORT ---
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 632916812 Problem PTSD (post-traumatic stress disorder) F43.10 Active 47327961 Problem Asthma exacerbation J45.901 Active 921213625 Problem Weight loss R63.4 Active 567638442 Problem Anorexia R63.0 Active 50514701 Problem Primary insomnia F51.01 Active 6988987 Problem History of colon polyps Z86.010 Active 349732512 Problem Neuropathy G62.9 Active 091298338 Problem Diabetes E11.9 Active 96788534 Problem Depressive disorder, not elsewhere classified 311 Active 18722711 Problem Gastroparesis K31.84 Active 512466072 Problem Back pain M54.9 Active 023453860 Problem Mixed hyperlipidemia E78.2 Active 909586310 ALLERGIES No Information ENCOUNTERS Encounter Location Date Diagnosis [facility] [id number] [id number] Aug, [facility] [address] [address] Aug, [facility] [id number] [place] [address] 84886- 8941 Aug, [facility] [address], [place] [address] 4956 Aug, [facility] [id number] [place] [address] 51754- 5880 Jul, [facility] [id number] [place] [address] 63382- 6366 Jul, Other dorsalgia M54.89 [facility] [id number] [place] [address] 87804- 9386 Jul, [facility] [id number] [place] [address] 17430 2546 Jul, [facility] [id number] [place] [address] 61720 2546 Jul, PTSD (post-traumatic stress disorder) F43.10 [facility] [id number] [place] [address] 57237- 1156 Jul, [facility] [id number] [place] [address] 04540- 8266 Jul, [facility] [id number] [place] [address] 76787- 5916 Jul, [facility] [id number] [place] [address] 02327 2546 Jul, Anorexia R63.0 [facility] [id number] [place] [address] 95012- 5586 Jun, [facility] [id number] [place] [address] 49470- 2436 Jun, Vaginal discharge N89.8 ; Visit for gynecologic examination Z01.419 and Pelvic pressure in female R10.2 [facility] [id number] [place] [address] 95610 2546 Jun, [facility] [id number] [place] [address] 88140- 1506 Jun, Other dorsalgia M54.89 [facility] [id number] [place] [address] 37808- 3986 16 Jun, 2017 [facility] [id number] [place] [address] 88072- 3687 Jun, [facility] [address] 05364- 2687 Jun, [facility] [address] 15065- 4311 May, Back pain M54.9 [facility] [address] 03050- 3371 May, Anorexia R63.0 [facility] [address] 02496- 7611 May, Other dorsalgia M54.89 [facility] [address] 57541- 7981 May, [facility] [address] 87152- 2166 May, Bronchitis J40 [facility] [address] 38474- 7975 May, Type 2 diabetes mellitus with diabetic autonomic (poly) neuropathy E11.43 ; 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 ; Back pain M54.9 and Neuropathy G62.9 [facility] [id number] [place] [address] 47371- 9231 May, Left breast mass N63.20 [facility] [address] 08122- 4125 May, [facility] [id number] [place] [address] 61039- 1965 Apr, Other dorsalgia M54.89 [facility] [address] 34274- 9736 Apr, Anorexia R63.0 [facility] [address] 66918- 1987 Apr, Anorexia R63.0 [facility] [address] [place] [address]- 9550 Apr, Mass of left breast N63.20 [facility] [id number] [place] [address] 48439- 4242 Apr, [facility] [address] 52812- 4821 Apr, [facility] [address] 23267- 8231 Apr, Diarrhea of presumed infectious origin A09 [facility] [address] 02898- 9170 Apr, Encounter for immunization Z23 [facility] [address] 01032- 4007 Apr, [facility] [address] 27444- 1334 Mar, Other dorsalgia M54.89 [facility] [id number] [place] [address] 79872- 4804 Mar, [facility] [id number] [place] [address] 30556- 3397 Mar, [facility] [id number] [place] [address] 02829- 8792 Mar, Anorexia R63.0 [facility] [id number] [place] [address] 34564- 9042 Mar, [facility] [id number] [place] [address] 63016- 254 Mar, Other dorsalgia M54.89 [facility] [id number] [place] [address] 96518- 9131 Mar, [facility] [id number] [place] [address] 04822- 4408 Mar, Encounter for immunization Z23 [facility] [address] 64074- 7432 Feb, Anorexia R63.0 [facility] [id number] [place] [address] 99363- 6110 Feb, Diabetes E11.9 [facility] [id number] [place] [address] 12121- 3363 Feb, Back pain M54.9 and Diabetes E11.9 [facility] [address] 90466- 8140 Feb, Diabetes E11.9 [facility] [address] 38953- 9389 Feb, Neuropathy G62.9 [facility] [address] 74593- 9943 Feb, Encounter for immunization Z23 ; Epigastric pain R10.13 ; Weight loss, abnormal R63.4 and Neuropathy G62.9 [facility] [address] [id number] Feb, [facility] [address] 55232- 5492 Feb, [facility] [address] 83583- 4444 Feb, Intractable vomiting with nausea, unspecified vomiting type R11.2 [facility] [id number] [place] [address] 02686 -1448 Feb, Chronic nausea R11.0 [facility] [id number] [place] [address] 78755- 0339 Feb, Other dorsalgia M54.89 [facility] [address] 81558- 8275 Jan, [facility] [id number] [place] [address] 40973- 6031 Jan, [facility] [address] 25399- 5835 Jan, [facility] [id number] [place] [address] 52749 2546 Jan, [facility] [id number] [place] [address] 69779 2546 Jan, Asthma exacerbation J45.901 ; Bronchitis J40 and Neuropathy G62.9 [facility] [address] 36284 2546 Jan, Anorexia R63.0 [facility] [id number] [place] [address] 58785- 2546 Jan, Other dorsalgia M54.89 [facility] [id number] [place] [address] 24382- 7606 Dec, [facility] [id number] [place] [address] 15646- 1186 Dec, [facility] [id number] [place] [address] 51468 2546 Dec, Anorexia R63.0 [facility] [id number] [place] [address] 31595- 6126 Dec, Primary insomnia F51.01 [facility] [id number] [place] [address] 18363 2546 Dec, Other dorsalgia M54.89 [facility] [id number] [place] [address] 35394 2546 Dec, [facility] [id number] [place] [address] 70136 2546 Nov, [facility] [id number] [place] [address] 20549 2546 Nov, [facility] [id number] [place] [address] 52155 2546 Nov, [facility] [id number] [place] [address] 87885 5056 Nov, History of colon polyps Z86.010 [facility] [id number] [place] [address] 47030- 5425 Nov, Weight loss R63.4 ; Nausea and vomiting, intractability of vomiting not specified, unspecified vomiting type R11.2 and Abnormal LFTs R79.89 [facility] [id number] [place] [address] 80867- 6732 Nov, [facility] [address] 38037- 4864 Nov, Neuropathy G62.9 and Pain in right knee M25.561 [address] 53130- 3315 Nov, Back pain M54.9 [facility] [id number] [place] [address] 89374- 5003 10 Nov, 2016 [facility] [address] 86971- 3673 Nov, Bronchitis J40 [facility] [id number] [place] [address] 85644- 5719 03 Nov, 2016 Weight loss R63.4 [facility] [id number] [place] [address] 88181- 3136 Oct, Back pain M54.9 [facility] [id number] [place] [address] 04051- 5504 16 Oct, 2016 [facility] [id number] [place] [address] 79597- 5103 14 Oct, 2016 Back pain M54.9 [facility] [address] 08728- 7129 13 Oct, 2016 Type 2 diabetes mellitus without complications E11.9 and Bronchitis J40 [facility] [id number] [place] [address] 70454- 9838 05 Oct, 2016 [facility] [id number] [place] [address] 49004- 0864 Oct, [address] [id number] [place] [address] 83268- 3220 September, Gastroparesis K31.84 ; Type 2 diabetes mellitus with diabetic autonomic (poly)neuropathy E11.43 and Neuropathy G62.9 [facility] [id number] [place] [address] 15845- 0152 September, Other dorsalgia M54.89 [facility] [id number] [place] [address] 15760- 2870 September, [address] [id number] [place] [address] 24309- 4965 September, [address] [id number] [place] [address] 11482- 0336 Aug, Gastroparesis K31.84 and Radicular leg pain M54.10 [facility] [id number] [place] [address] 41375- 3985 Aug, Anorexia R63.0 [facility] [id number] [place] [address] 68739- 6147 Aug, Bronchitis J40 [address] [id number] [place] [address] 63302- 6590 Aug, Back pain M54.9 [facility] [id number] [place] [address] 30543- 7047 Aug, Routine gynecological examination Z01.419 ; Routine screening for STI (sexually transmitted infection) Z11.3 and Yeast infection of the vagina B37.3 [facility] [id number] [place] [address] 71534- 4538 Jul, Other dorsalgia M54.89 [address] [id number] [place] [address] 13294- 3820 Jul, Diabetes E11.9 and Gastroparesis K31.84 [address] [address] [place] [address] 96566- 3453 Jun, [facility] [address] 58122- 5465 24 Jun, 2016 Back pain M54.9 [facility] [address] 38508- 9457 14 Jun, 2016 Neuropathy G62.9 [facility] [address] [id number] Jun, 2016 Encounter for dental examination Z01.20 [facility] [address] 24621- 7496 Jun, Gastroparesis 536.3 and Anorexia R63.0 [facility] [address] 32717- 6509 May, Other dorsalgia M54.89 [facility] [address] 30638- 3510 May, Periumbilical abdominal pain R10.33 ; Weight loss R63.4 and Gastroparesis K31.84 [facility] [address] 60510- 9218 May, Back pain M54.9 [facility] [address] 32872- 3925 Apr, Anorexia R63.0 [facility] [address] 91526- 0664 Apr, Anorexia R63.0 [facility] [address] 99263- 6247 Apr, Back pain M54.9 [facility] [address] 94303- 4662 Apr, Back pain M54.9 [facility] [address] 24938- 0266 Apr, [facility] [id number] [place] [address] 88950- 5724 Apr, Bronchitis J40 and Neuropathy G62.9 [facility] [address] 63450- 3461 Apr, Neuropathy G62.9 [address] [address] 13443- 2423 Apr, [address] [address] 69240- 0123 Apr, Back pain M54.9 [address] [address] 25104- 1079 Mar, Type 2 diabetes mellitus with diabetic autonomic (poly) neuropathy E11.43 [address] [address] 78219- 0524 Mar, Type 2 diabetes mellitus without complications E11.9 [address] [address] 55800- 2407 Mar, Neuropathy G62.9 [address] [address] 73735- 9621 Mar, [facility] [id number] [place] [address] 61780- 0736 Mar, Breast cancer screening Z12.39 [address] [address] 24639- 4022 Mar, Other dorsalgia M54.89 [address] [id number] [place] [address] 52404- 4441 Feb, [address] [address] 68663- 2477 Jan, Neuropathy G62.9 ; Type 2 diabetes mellitus with diabetic autonomic (poly)neuropathy E11.43 ; Uncomplicated asthma, unspecified asthma severity J45.909 and Encounter for immunization Z23 [facility] [address] 96012- 0835 Jan, [facility] [address], [place] [address]- 9349 Jan, [facility] [id number] [place] [address] 88953- 9377 Dec, [facility] [id number] [place] [address] 62400- 6757 Dec, [facility] [id number] [place] [address] 97864- 8127 Nov, [facility] [id number] [place] [address] 94092- 6812 Nov, Back pain M54.9 [facility] [id number] [place] [address] 06381- 6011 Nov, Neuropathy G62.9 ; Mixed hyperlipidemia E78.2 ; Type 2 diabetes mellitus with diabetic autonomic (poly)neuropathy E11.43 and 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 [facility] [address], [place] [address]- 1617 Oct, [facility] [id number] [place] [address] 39772- 1458 Oct, Other dorsalgia M54.89 [facility] [id number] [place] [address] 35653- 3224 September, Primary insomnia F51.01 [facility] [address], [place] [address]- 9522 September, [facility] [address] [address]- 3073 Aug, Other dorsalgia M54.89 [facility] [address], [place] [address]- 2883 Jul, [facility] [address], [place] [address]- 7362 Jul, Other dorsalgia M54.89 [facility] [id number] [place] [address] 31747- 7577 Jul, Diabetes E11.9 ; Back pain M54.9 ; Neuropathy G62.9 and Gastroparesis K31.84 [facility] [id number] [place] [address] 15555- 4377 Jun, [facility] [address] 63694- 0365 Jun, Other dorsalgia M54.89 [facility] [id number] [place] [address] 66675- 3931 May, [facility] [address] 62496- 1582 May, Radicular leg pain M54.10 and Other dorsalgia M54.89 [facility] [id number] [place] [address] 69639- 1959 Apr, [facility] [id number] [place] [address] 69016- 8501 Mar, [facility] [id number] [place] [address] 77641- 0477 Mar, [facility] [id number] [place] [address] 52186- 5747 Mar, Radicular leg pain M54.10 [facility] [id number] [place] [address] 03874- 4212 Feb, [facility] [id number] [place] [address] 76336- 7313 Feb, [facility] [id number] [place] [address] 07940- 4833 Feb, [facility] [id number] [place] [address] 88101- 5104 Jan, [facility] [address] 57900- 5090 Jan, IBS (irritable bowel syndrome) 564.1 [facility] [id number] [place] [address] 94006- 2516 Jan, [facility] [id number] [place] [address] 56801- 4037 Jan, [facility] [id number] [place] [address] 42391- 5686 Jan, Diabetes mellitus without mention of complication, type II or unspecified type, not stated as uncontrolled 250.00 ; Gastroparesis 536.3 and Hypoacusis 389.9 [facility] [id number] [place] [address] 06736- 9549 Jan, [facility] [id number] [place] [address] 16150- 3970 Jan, [facility] [id number] [place] [address] 53791- 3696 Dec, [facility] [id number] [place] [address] 99821- 0363 Dec, [facility] [id number] [place] [address] 01515- 2964 Dec, [facility] [id number] [place] [address] 27029- 6184 Dec, Back pain 724.5 and Gastroparesis 536.3 [facility] [id number] [place] [address] 45644- 1207 Nov, [facility] [id number] [id number] Nov, Dental examination V72.2 [facility] [address] [address]- 3568 Nov, [facility] [address] [address]- 1710 Nov, [facility] [id number] [address]- 0499 Nov, Depressive disorder, not elsewhere classified 311 and No condition on [place] V71.09 [facility] [address] 8911 Nov, Diabetes 250.00 and Symptomatic menopausal or female climacteric states 627.2 [facility] [id number] [place] [address] 84541- 0481 Oct, [facility] [id number] [place] [address] 06524- 5788 Oct, Lumbar strain 847.2 [facility] [id number] [place] [address] 454672- 6799 Oct, Gastroparesis 536.3 and Unspecified myalgia and myositis 729.1 [facility] [id number] [place] [address] 30614- 6563 Aug, [facility] [address], [place] [address]- 2424 Aug, [facility] [address], [place] [address]- 0356 Jul, [facility] [address], [place] [address]- 8148 Jul, [facility] [address], [place] [address]- 0801 Jul, [facility] [address] [address]- 3948 Jul, [facility] [address] 77[address] Jul, [facility] [id number] [address] [address] Jun, [facility] [id number] [address] [address] Jun, [facility] [place] [facility] [address] [id number] [place] [address] Jun, [facility] [place] [facility] [address] [id number] [place] [address] May, [facility] [place] [facility] [address] [id number] [place] [address] May, [facility] [place] [facility] [address] [id number] [place] [address] Mar, [facility] [place] [facility] [address] [id number] [place] [address] Mar, [facility] [place] [facility] [address] [id number] [place] [address] Mar, [facility] [place] [facility] [address] [id number] [place] [address] Mar, [facility] [place] [facility] [address] [id number] [place] [address] Mar, [facility] [place] [facility] [address] [id number] [place] [address] Mar, [facility] [place] [facility] [address] [id number], [place] [address] Feb, [facility] [place] [facility] [address] [id number], [place] [address] Feb, [facility] [place] [facility] [address] [id number], [place] [address] Nov, [facility] [place] [facility] [address] [id number] [place] [address] Nov, [facility] [place] [facility] [address] [id number], [place] [address] Nov, [facility] [place] [facility] [address] [id number], [place] [address] Oct, [facility] [place] [facility] [address] [id number], [place] [address] September, [facility] [address] [id number] [place] [address] Aug, [facility] [address] [id number] [place] [address] 15 Aug, 2012 [facility] [address] [facility] [id number] [place] [address] Aug, [facility] [address] [id number] [place] [address] Aug, [facility] [address] [id number] [place] [address] Aug, [facility] [address] [facility] [id number] [place] [address] Aug, [facility] [id number] [place] [address] Aug, [facility] [address] [id number] [place] [address] Aug, [facility] [address] [id number] [place] [address] Jul, [facility] [address] [id number] [address] Jul, [facility] [address] [id number] [place] [address] Jun, [facility] [place] [facility] [address] [id number] [place] [address] Jun, [facility] [place] [facility] [address] [id number] [place] [address] Jun, [facility] [place] [facility] [address] [id number], [place] [address] Jun, [facility] [address] [facility] [id number], [place] [address] 07 Jun, 2012 [facility] [address] [facility] [id number], [place] [address] Jun, [facility] [address] [id number], [place] [address] Jun, [facility] [id number], [place] [address] May, [facility] [id number], [place] [address] May, [facility] [address] [id number], [place] [address] May, [facility] [id number] [address] May, [facility] [id number], [place] [address] Mar, [facility] [id number] [address] Mar, [facility] [address] [facility] [id number] [address] Jan, IMMUNIZATIONS No Known Immunizations SOCIAL HISTORY Never Assessed REASON FOR VISIT Refill request PLAN OF CARE VITAL SIGNS MEDICATIONS Medication Instructions Dosage Frequency Start Date End Date Duration Status Albuterol Sulfate 90 mcg/actuation Orally 4 times a day inhale 2 puffs by Inhalation route 4 times per day as needed PRN 6h Jul, Active RESULTS No Results PROCEDURES No Known [...] vomitting-[facility] 03/05/17 Hospitalization History hospital stay at [facility] for stomach issues 2016
== END 2018-01-27 16:58 | disposition home or self-care (01) ==
LOC: EDUNIT# 15:06 → ER 15:07
DX: S46.911A Strain of unspecified muscle, fascia and tendon at shoulder and upper arm level, right arm, initial encounter (principal); M25.511 Pain in right shoulder; J45.909 Unspecified asthma, uncomplicated; I10 Essential (primary) hypertension; E11.42 Type 2 diabetes mellitus with diabetic polyneuropathy; K21.9 Gastro-esophageal reflux disease without esophagitis; F41.9 Anxiety disorder, unspecified; F32.9 Major depressive disorder, single episode, unspecified; F17.210 Nicotine dependence, cigarettes, uncomplicated; Z87.19 Personal history of other diseases of the digestive system; Z82.49 Family history of ischemic heart disease and other diseases of the circulatory system; Z85.43 Personal history of malignant neoplasm of ovary; Z90.89 Acquired absence of other organs; Z90.710 Acquired absence of both cervix and uterus; Z86.711 Personal history of pulmonary embolism; Z79.51 Long term (current) use of inhaled steroids; Z88.6 Allergy status to analgesic agent; Z88.8 Allergy status to other drugs, medicaments and biological substances; Z79.4 Long term (current) use of insulin; Z79.01 Long term (current) use of anticoagulants; X58.XXXA Exposure to other specified factors, initial encounter
CPT/HCPCS: 73030; 96372

== ENCOUNTER → 2018-02-05 | Outpatient (CLI) | payer MEDICARE, MEDICAID ==
--- NOTE | 2018-02-05 14:09 | Diagnostic Imaging Report ---
INDICATION: Abdominal pain. Gallbladder sonography performed in the routine fashion. FINDINGS: The liver shows normal echogenicity with no focal lesions. Gallbladder is unremarkable with no gallstones or wall thickening. Common duct is not well seen but the intrahepatic ducts are not dilated. Pancreas is not well seen due to overlying gas. The right kidney was normal and measured 9.5 cm in length. There is no ascites. IMPRESSION: Unremarkable right upper quadrant ultrasound, with some limitation as above. Dictated by: Dictated on workstation # [id number]
== END ==
LOC: RAD 09:46
PROVIDERS: ATTEND Internal Medicine
DX: R10.11 Right upper quadrant pain (principal)
CPT/HCPCS: 76705

== ENCOUNTER 2018-05-04 15:20 | Emergency (ER) | payer MEDICARE, MEDICAID ==
[~2018-05-04] VITALS: Ht 157.5 cm; Wt 49.0 kg
[~2018-05-04 15:20] MED LIST changes: -IOHEXOL 350 MG/ML 100 ML (OMNIPAQUE 350) VIAL IV ONE; -NITR-65 PO; -NS 250 ML (IVPB) BAG IV ONE; -RECEIVED CONTRAST (Hold Metformin) IV SCH
--- OUTSIDE RECORDS SUMMARY | 2018-05-04 15:28 | XMS REPORT ---
Author Author HORACE HIGGINS [facility] Address [address] [place] [address] Care Team Providers [employer] Worker Name Role Phone HORACE HIGGINS Unavailable PROBLEMS Type Condition ICD9-CM Code [id number] Code Onset Dates Condition Status SNOMED Code Problem Asthma exacerbation J45.901 Active 869344016 Problem Diabetic polyneuropathy associated with type 2 diabetes mellitus E11.42 Active 60781137 Problem Reactive depression F32.9 Active 99249906 Problem Other chronic pain G89.29 Active 40711237 Problem Neuropathy G62.9 Active 636820918 Problem Irritable bowel syndrome with constipation K58.1 Active 593226583 Problem Back pain M54.9 Active 663574472 Problem Low TSH level R94.6 Active 097253930 Problem Migraine without aura and without status migrainosus, not intractable G43.009 Active 860371948 Problem PTSD (post-traumatic stress disorder) F43.10 Active 34646778 Problem Tobacco dependency F17.200 Active 34592703 Problem Annual physical exam Z00.00 Active 215927356 Problem Mixed hyperlipidemia E78.2 Active 865781623 Problem Type 2 diabetes mellitus with diabetic autonomic (poly)neuropathy E11.43 Active 69636582 Problem Diabetes E11.9 Active 68651496 Problem Gastroparesis K31.84 Active 597124209 Problem Anorexia R63.0 Active 34184234 Problem Weight loss R63.4 Active 889453094 Problem watermaster current use of 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 Z79.4 Active 651191356 Problem History of colon polyps Z86.010 Active 475311537 Problem Uncomplicated asthma, unspecified asthma severity J45.909 Active 795098490 Problem Primary insomnia F51.01 Active 5592543 ALLERGIES No Information ENCOUNTERS Encounter Location Date Diagnosis [facility], [place] [address] [facility] [id number] [place] [address] May, [facility], [place] [id number] [place] [address] 12679- 8192 Apr, [facility], [place] [id number] [place] [address] 79200- 3116 Apr, [facility], [place] [id number] [place] [address] 08579- 7046 30 Mar, 2018 LLQ pain R10.32 and Other dorsalgia M54.89 [facility], [place] [id number] [place] [address] 52160- 6616 Mar, [facility], [place] [id number] [place] [address] 72158- 2414 15 Mar, 2018 Pain in left shoulder M25.512 [facility], [place] [id number] [place] [address] 01008- 9626 14 Mar, 2018 [facility], [place] [id number] [place] [address] 76192- 6408 Mar, [facility], [place] [id number] [place] [address] 35027- 0490 Mar, [facility], [place] [id number] [place] [address] 62017- 2456 Mar, Vaginal discharge N89.8 [facility], [place] [id number] [place] [address] 45392- 0783 07 Mar, 2018 PTSD (post-traumatic stress disorder) F43.10 [facility], [place] [id number] [place] [address] 62986- 0209 Mar, [facility], [place] [id number] [place] [address] 21164- 3781 Feb, LLQ pain R10.32 and Other dorsalgia M54.89 [facility], [place] [id number] [place] [address] 79871- 1867 24 Feb, 2018 [facility], [place] [id number] [place] [address] 82928- 9486 Feb, [facility], [place] [id number] [place] [address] 70226- 7385 Feb, PTSD (post-traumatic stress disorder) F43.10 [facility], [place] [id number] [place] [address] 86122- 8129 Feb, PTSD (post-traumatic stress disorder) F43.10 [facility], [place] [id number] [place] [address] 16440- 7746 Feb, Pain in left shoulder M25.512 and Other chronic pain G89.29 [facility], [place] [address] 07208- 0766 Feb, LLQ pain R10.32 and Other dorsalgia M54.89 [facility], [place] [id number] [place] [address] 14844- 8556 Feb, [facility], [place] [address] 84856- 4688 Feb, Right lower quadrant abdominal pain R10.31 ; Pain in left shoulder M25.512 ; Other chronic pain G89.29 and Encounter for immunization Z23 [facility], [place] [address] 74956- 1841 Feb, [facility], [place] [id number] [place] [address] 62275- 5937 Jan, Dysfunction of left eustachian tube H69.82 [facility], [place] [id number] [place] [address] 46486- 8277 24 Jan, 2018 [facility], [place] [id number] [place] [address] 85056- 0642 Jan, [facility], [place] [address] 58704- 2696 Jan, [facility], [place] [id number] [place] [address] 20807- 6773 Jan, [facility], [place] [address] 98739- 6513 Jan, Left upper arm pain M79.622 [place] [id number] [place] [address] 79275- 4466 Jan, [place] [address] 43266- 3641 Jan, PTSD (post-traumatic stress disorder) F43.10 and Tobacco dependency F17.200 [place] [address] 60539- 0278 Jan, Back pain M54.9 ; Type 2 diabetes mellitus with diabetic autonomic (poly)neuropathy E11.43 ; Neuropathy G62.9 ; Irritable bowel syndrome with constipation K58.1 ; Sprain of other part of left shoulder region, initial encounter S43.492A and Dysfunction of left eustachian tube H69.82 [place] [address] 24254- 8416 Jan, [place] [address] 54642- 1324 05 Jan, 2018 Neuropathy G62.9 ; LLQ pain R10.32 and Other dorsalgia M54.89 [place] [address] 94121- 1298 Jan, [place] [address] 71253- 9017 Jan, [place] [address] 93354- 5877 Dec, Right upper quadrant abdominal pain R10.11 [place] [address] 15377- 3690 Dec, PTSD (post-traumatic stress disorder) F43.10 [place] [id number] [place] [address] 10567- 8123 Dec, LLQ pain R10.32 [place] [address] 55232- 4844 Dec, Other dorsalgia M54.89 [facility], [place] [id number] [place] [address] 54683- 8927 Dec, Neuropathy G62.9 [facility], [place] [address] 86990- 5640 Dec, [facility], [place] [address] 71779- 1170 Nov, Irritable bowel syndrome with constipation K58.1 ; Uncomplicated asthma, unspecified asthma severity J45.909 and Type 2 diabetes mellitus with diabetic autonomic (poly)neuropathy E11.43 [facility] [address] [id number] Nov, Dental examination Z01.20 [place] [address] 36672- 7993 Nov, Other dorsalgia M54.89 [place] [address] 69889- 9863 Nov, LLQ pain R10.32 ; Low TSH level R94.6 and Gastroparesis K31.84 [place] [address] 16940- 8463 Nov, Anorexia R63.0 [place] [address] 25685- 9611 Nov, Asthma exacerbation J45.901 [place] [address] 17015- 0104 Oct, PTSD (post-traumatic stress disorder) F43.10 [place] [address] 54432- 3096 Oct, [place] [address] 96226- 0501 Oct, PTSD (post-traumatic stress disorder) F43.10 and Tobacco dependency F17.200 [place] [address] [place] [address]- 1291 Oct, [facility], [place] [address] 93089- 9472 Oct, Other dorsalgia M54.89 [facility], [place] [address] 28478- 5290 Oct, Anorexia R63.0 [place] [address] 61917- 9464 September, PTSD (post-traumatic stress disorder) F43.10 [place] [address] 991231- 4294 September, Low TSH level R94.6 [place] [address] 46463- 6738 September, Other dorsalgia M54.89 [place] [address] 64076- 3892 September, Annual physical exam Z00.00 and Migraine without aura and without status migrainosus, not intractable G43.009 [place] [address] 65053- 0798 September, Abnormal TSH R94.6 and Dysfunction of left eustachian tube H69.82 [place] [address] 24314- 9769 Aug, [facility], [place] [address] 672648- 3307 Aug, Anorexia R63.0 [facility] [address] [id number] Aug, Dental examination Z01.20 and Xerostomia K11.7 [facility], [place] [address] 87200- 2468 Aug, Neuropathy G62.9 [place] [address] 25463- 4416 Aug, [facility], [place] [id number] [place] [address] 51145- 9316 Aug, Other dorsalgia M54.89 [facility], [place] [id number] [place] [address] 65623 2546 Aug, Type 2 diabetes mellitus with diabetic autonomic (poly) neuropathy E11.43 ; Diabetic polyneuropathy associated with type 2 diabetes mellitus E11.42 ; Bronchitis J40 ; Gastroparesis K31.84 and Reactive depression F32.9 [facility], [place] [id number] [place] [address] 77528- 6946 Aug, PTSD (post-traumatic stress disorder) F43.10 [facility], [place] [id number] [place] [address] 65017- 6956 Aug, Other dorsalgia M54.89 and Anorexia R63.0 [facility], [place] [address] 02534- 2656 Jul, [facility], [place] [id number] [place] [address] 00031- 5791 Jul, Other dorsalgia M54.89 [facility], [place] [id number] [place] [address] 18793- 0516 Jul, [facility], [place] [id number] [place] [address] 28573- 5699 Jul, [facility], [place] [id number] [place] [address] 98072- 0485 Jul, PTSD (post-traumatic stress disorder) F43.10 [facility], [place] [id number] [place] [address] 44781- 6416 Jul, [facility], [place] [id number] [place] [address] 19065- 9246 Jul, [facility], [place] [id number] [place] [address] 26420- 8296 Jul, [facility], [place] [address] [place] [address]- 2126 Jul, Anorexia R63.0 [facility], [place] [address] 98091 2546 Jun, [facility], [place] [id number] [place] [address] 42170 2546 Jun, Vaginal discharge N89.8 ; Visit for gynecologic examination Z01.419 and Pelvic pressure in female R10.2 [facility], [place] [address] 17113 2546 Jun, [facility], [place] [address] 71384 2546 Jun, Other dorsalgia M54.89 [facility], [place] [address] 33388 2546 Jun, [facility], [place] [address] 57883- 6536 Jun, [facility], [place] [id number] [place] [address] 96019- 4956 Jun, [facility], [place] [address] 21772 2546 May, Back pain M54.9 [facility], [place] [id number] [place] [address] 12409 2546 May, Anorexia R63.0 [facility], [place] [id number] [place] [address] 48403 2546 May, Other dorsalgia M54.89 [facility], [place] [address] 87897 2546 May, [facility], [place] [address] 20562 2546 May, Bronchitis J40 [facility], [place] [id number] [place] [address] 30886 2546 May, Type 2 diabetes mellitus with diabetic autonomic (poly) neuropathy E11.43 ; 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.4 ; Back pain M54.9 and Neuropathy G62.9 [place] [address] 34051- 5173 May, Left breast mass N63.20 [facility], [place] [address] 63213- 3816 May, [facility], [place] [address] 10171- 9623 Apr, Other dorsalgia M54.89 [place] [address] 07155- 4785 Apr, Anorexia R63.0 [place] [address] 29036- 0656 Apr, Anorexia R63.0 [place] [address] 75327- 9033 Apr, Mass of left breast N63.20 [place] [address] 40092- 4745 Apr, [place] [address] 79258- 0031 Apr, [place] [address] 21670- 6716 Apr, Diarrhea of presumed infectious origin A09 [place] [address] 36591- 8508 Apr, Encounter for immunization Z23 [place] [address] 25266- 1006 Apr, [place] [address] 33727- 2461 Mar, Other dorsalgia M54.89 [place] [address] 26139- 3633 Mar, [facility], [place] [id number] [place] [address] 47366- 1189 Mar, [facility], [place] [address] 77194- 2348 Mar, Anorexia R63.0 [facility], [place] [id number] [place] [address] 33413- 0744 Mar, [facility], [place] [address] 51031- 4711 Mar, Other dorsalgia M54.89 [facility], [place] [address] 68925- 6870 Mar, [facility], [place] [id number] [place] [address] 43994- 2685 Mar, Encounter for immunization Z23 [facility], [place] [address] 24113- 0258 Feb, Anorexia R63.0 [facility], [place] [id number] [place] [address] 25162- 8380 Feb, Diabetes E11.9 [facility], [place] [address] 09797- 2832 Feb, Back pain M54.9 and Diabetes E11.9 [facility], [place] [id number] [place] [address] 40658- 1912 Feb, Diabetes E11.9 [facility], [place] [id number] [place] [address] 37355- 0897 Feb, Neuropathy G62.9 [facility], [place] [id number] [place] [address] 82251- 2402 Feb, Encounter for immunization Z23 ; Epigastric pain R10.13 ; Weight loss, abnormal R63.4 and Neuropathy G62.9 [facility] [id number] [place] [address] [id number] Feb, [facility], [place] [id number] [place] [address] 20296- 1685 Feb, [facility], [place] [address] 27863- 8261 Feb, Intractable vomiting with nausea, unspecified vomiting type R11.2 [facility] [id number] [place] [address] 34714 -3481 Feb, Chronic nausea R11.0 [facility], [place] [address] 86844- 4940 Feb, Other dorsalgia M54.89 [facility], [place] [address] 81435- 0120 Jan, [facility], [place] [address] 92405- 3150 Jan, [facility], [place] [address] 39889- 5465 Jan, [facility], [place] [id number] [place] [address] 38740- 0538 Jan, [facility], [place] [address] 37573- 4312 Jan, Asthma exacerbation J45.901 ; Bronchitis J40 and Neuropathy G62.9 [facility], [place] [id number] [place] [address] 90215- 8192 Jan, Anorexia R63.0 [facility], [place] [id number] [place] [address] 44661- 0820 Jan, Other dorsalgia M54.89 [facility], [place] [address] 51319- 1840 Dec, [facility], [place] [address] 34615- 0344 Dec, [facility], [place] [id number] [place] [address] 95615- 5697 Dec, Anorexia R63.0 [facility], [place] [id number] [place] [address] 20240- 9616 Dec, Primary insomnia F51.01 [facility], [place] [id number] [place] [address] 42756- 6536 Dec, Other dorsalgia M54.89 [facility], [place] [id number] [place] [address] 29636- 4038 Dec, [facility], [place] [address] 68397- 3220 Nov, [facility], [place] [id number] [place] [address] 88895- 2533 Nov, [facility], [place] [address] 77753- 0991 Nov, [facility], [place] [id number] [place] [address] 00827- 4922 Nov, History of colon polyps Z86.010 [facility], [place] [id number] [place] [address] 16660- 9985 Nov, Weight loss R63.4 ; Nausea and vomiting, intractability of vomiting not specified, unspecified vomiting type R11.2 and Abnormal LFTs R79.89 [facility], [place] [id number] [place] [address] 54522- 7351 Nov, [facility], [place] [id number] [place] [address] 80505- 0852 Nov, Neuropathy G62.9 and Pain in right knee M25.561 [facility], [place] [id number] [place] [address] 52006- 1866 Nov, Back pain M54.9 [facility], [place] [id number] [place] [address] 61153- 2960 Nov, [facility], [place] [id number] [place] [address] 97065- 9298 Nov, Bronchitis J40 [place] [id number] [place] [address] 29941- 9754 Nov, Weight loss R63.4 [facility], [place] [id number] [place] [address] 00543- 5349 Oct, Back pain M54.9 [facility], [place] [id number] [place] [address] 25057- 4767 Oct, [facility], [place] [id number] [place] [address] 18805- 1089 Oct, Back pain M54.9 [facility], [place] [id number] [place] [address] 96764- 0620 Oct, Type 2 diabetes mellitus without complications E11.9 and Bronchitis J40 [facility], [place] [id number] [place] [address] 41541- 5580 Oct, [facility], [place] [id number] [place] [address] 49058- 4105 Oct, [facility], [place] [id number] [place] [address] 59792- 1368 September, Gastroparesis K31.84 ; Type 2 diabetes mellitus with diabetic autonomic (poly)neuropathy E11.43 and Neuropathy G62.9 [facility], [place] [id number] [place] [address] 99603- 8372 September, Other dorsalgia M54.89 [facility], [place] [id number] [place] [address] 23064- 0411 September, [facility], [place] [id number] [place] [address] 16219- 7943 September, [facility], [place] [id number] [place] [address] 11022- 7813 Aug, Gastroparesis K31.84 and Radicular leg pain M54.10 [facility], [place] [id number] [place] [address] 16531- 8324 24 Apr, 2017 Anorexia R63.0 [facility], [place] [id number] [place] [address] 00686- 3355 Aug, Bronchitis J40 [place] [address] 29688- 6988 Aug, Back pain M54.9 [place] [id number] [place] [address] 38044- 3055 04 Aug, 2016 Routine gynecological examination Z01.419 ; Routine screening for STI (sexually transmitted infection) Z11.3 and Yeast infection of the vagina B37.3 [place] [id number] [place] [address] 12937- 7118 Jul, Other dorsalgia M54.89 [place] [id number] [place] [address] 47395- 5889 Jul, Diabetes E11.9 and Gastroparesis K31.84 [place] [address] 98962- 4506 28 Jun, 2016 [facility], [place] [id number] [place] [address] 77200- 7719 24 Jun, 2016 Back pain M54.9 [place] [id number] [place] [address] 11311- 7028 14 Jun, 2016 Neuropathy G62.9 [facility] [id number] [place] [address] [id number] 02 Jun, 2016 Encounter for dental examination Z01.20 [facility] [place] [id number] [place] [address] 72873- 9271 Jun, Gastroparesis 536.3 and Anorexia R63.0 [place] [address] 81510- 9458 May, Other dorsalgia M54.89 [place] [id number] [place] [address] 02597- 2852 May, Periumbilical abdominal pain R10.33 ; Weight loss R63.4 and Gastroparesis K31.84 [facility] [place] [id number] [place] [address] 25293- 1227 May, Back pain M54.9 [facility] [place] [id number] [place] [address] 64108 2546 23 Apr, 2016 Anorexia R63.0 [facility] [place] [address] [address] 2546 Apr, Anorexia R63.0 [facility] [place] [address] 13471 2546 16 Apr, 2016 Back pain M54.9 [facility] [place] [address] 18334- 3226 Apr, Back pain M54.9 [facility], [place] [address] 78105- 2826 Apr, [facility] [place] [address] [address] 2549 Apr, Bronchitis J40 and Neuropathy G62.9 [facility] [place] [address] [address] 2546 Apr, Neuropathy G62.9 [facility], [place] [id number] [place] [address] 07487 2543 05 Apr, 2016 [facility], [place] [id number] [place] [address] 36052 2545 Apr, Back pain M54.9 [facility] [place] [id number] [place] [address] 39981 2548 Mar, Type 2 diabetes mellitus with diabetic autonomic (poly) neuropathy E11.43 [facility] [place] [id number] [place] [address] 54918- 2540 Mar, Type 2 diabetes mellitus without complications E11.9 [facility], [place] [id number] [place] [address] 56554- 6238 Mar, Neuropathy G62.9 [facility], [place] [id number] [place] [address] 25373- 4792 Mar, [facility] [place] [id number] [place] [address] 14781- 4618 Mar, Breast cancer screening Z12.39 [place] [id number] [place] [address] 83915- 2040 Mar, Other dorsalgia M54.89 [facility] [place] [address] [address] [id number] [place] [address] 76091- 4301 Feb, [address] [place] [id number] [place] [address] 45026- 8485 Jan, Neuropathy G62.9 ; Type 2 diabetes mellitus with diabetic autonomic (poly)neuropathy E11.43 ; Uncomplicated asthma, unspecified asthma severity J45.909 and Encounter for immunization Z23 [place] [id number] [place] [address] 45221- 8564 Jan, [address] [id number] [place] [address] 59161- 9603 Jan, [address] [id number] [place] [address] 19019- 5485 Dec, [place] [id number] [place] [address] 32358- 4479 Dec, [address] [id number] [place] [address] 85654- 4685 Nov, [address] [id number] [place] [address] 91858- 8695 Nov, Back pain M54.9 [facility] [place] [id number] [place] [address] 46451- 9710 Nov, Neuropathy G62.9 ; Mixed hyperlipidemia E78.2 ; Type 2 diabetes mellitus with diabetic autonomic (poly)neuropathy E11.43 and watermaster current use of insulin Z79.4 [place] [id number] [place] [address] 66947- 0471 Oct, [facility] [place] [id number] [place] [address] 98600- 4067 Oct, Other dorsalgia M54.89 [facility] [place] [id number] [place] [address] 76256- 4799 September, Primary insomnia F51.01 [facility], [place] [address] 20513- 3245 September, [facility] [place] [id number] [place] [address] 51266- 9563 Aug, Other dorsalgia M54.89 [facility] [place] [id number] [place] [address] 27845- 3057 Jul, [facility] [place] [id number] [place] [address] 70586- 9174 Jul, Other dorsalgia M54.89 [facility] [place] [id number] [place] [address] 21216- 8316 Jul, Diabetes E11.9 ; Back pain M54.9 ; Neuropathy G62.9 and Gastroparesis K31.84 [facility], [place] [id number] [place] [address] 91397- 4439 Jun, [facility] [place] [id number] [place] [address] 10677- 3465 Jun, Other dorsalgia M54.89 [facility], [place] [id number] [place] [address] 80316- 3708 May, [facility] [place] [id number] [place] [address] 73690- 2566 May, Radicular leg pain M54.10 and Other dorsalgia M54.89 [facility], [place] [id number] [place] [address] 06180- 3461 Apr, [facility], [place] [id number] [place] [address] 77874- 9439 Mar, [facility], [place] [id number] [address] 2920 Mar, [facility] [place] [id number] [place] [address] 33424- 5203 Mar, Radicular leg pain M54.10 [facility], [place] [id number] [place] [address] 35665- 9604 Feb, [facility] [place] [id number] [place] [address] 01755- 0760 Feb, [facility], [place] [id number] [place] [address] 73392- 7574 Feb, [facility], [place] [id number] [place] [address] 71496- 2522 Jan, [facility], [place] [id number] [place] [address] 75799- 2282 Jan, IBS (irritable bowel syndrome) 564.1 [facility], [place] [id number] [place] [address] 06746- 1173 Jan, [facility], [place] [id number] [place] [address] 34399- 4550 Jan, [facility] [place] [id number] [place] [address] 19084- 7105 Jan, Diabetes mellitus without mention of complication, type II or unspecified type, not stated as uncontrolled 250.00 ; Gastroparesis 536.3 and Hypoacusis 389.9 [facility], [place] [address] [address]- 1484 Jan, [facility], [place] [id number] [place] [address] 10448- 1437 Jan, [facility], [place] [id number] [place] [address] 58610- 2800 Dec, [facility], [place] [id number], [place] [address]- 5674 Dec, [facility] [place] [id number] [place] [address] 62082- 0057 Dec, [facility] [place] [id number] [place] [address] 10114- 8630 Dec, Back pain 724.5 and Gastroparesis 536.3 [facility], [place] [address] 42866- 6771 Nov, [facility] [id number] [place] [address] [id number] Nov, Dental examination V72.2 [facility] [place] [id number] [place] [address] 81385- 7411 Nov, [facility] [place] [id number] [place] [address] 55048- 5692 Nov, [facility] [place] [id number] [place] [address] 17154- 8555 Nov, Depressive disorder, not elsewhere classified 311 and No condition on [place] II V71.09 [facility] [place] [id number] [place] [address] 48316- 3153 Nov, Diabetes 250.00 and Symptomatic menopausal or female climacteric states 627.2 [facility], [place] [id number] [place] [address] 71752- 2628 Oct, [facility] [place] [id number] [place] [address] 44916- 5477 Oct, Lumbar strain 847.2 [facility], [place] [id number] [place] [address] 51125- 0298 Oct, Gastroparesis 536.3 and Unspecified myalgia and myositis 729.1 [facility], [place] [id number] [place] [address] 01875- 1015 Aug, [facility], [place] [id number] [place] [address] 66761- 8661 Aug, [facility] [place] [facility] [address] [id number] [place] [address]- 4889 Jul, [facility] [place] [facility] [address] [id number] [place] [address]- 3776 Jul, [facility] [place] [facility] [address] [id number] [place] [address]- 2535 Jul, [facility] [place] [facility] [address] [id number] [place] [address]- 4867 Jul, [facility] [place] [facility] [address] [id number] [place] [address]- 4718 Jul, [facility] [place] [facility] [address] [id number] [place] [address]- 9131 Jun, [facility] [place] [facility] [address] [facility] [id number] [place] [address]- 6563 Jun, [facility] [place] [facility] [address] [id number] [place] [address]- 9233 Jun, [facility] [place] [facility] [address] [id number] [place] [address]- 5183 May, [facility] [place] [facility] [address] [facility] [id number] [place] [address]- 1920 May, [facility] [place] [facility] [address] [id number] [place] [address]- 8113 Mar, [facility] [place] [facility] [address] [id number] [place] [address]- 7229 Mar, [facility] [place] [facility] [address] [id number] [place] [address]- 0550 Mar, [facility] [place] [facility] [address] [id number] [place] [address]- 5099 Mar, [facility] [place] [facility] [address] [facility] [id number] [place]- 6444 Mar, [facility] [place] [facility] [address] [id number] [place] [address]- 9173 Mar, [facility] [address] [id number] [place] [address]- 0683 Feb, [facility] [place] [facility] [address] [id number] [place] [address]- 8139 Feb, [facility] [place] [facility] [address] [id number] [place] [address]- 4829 Nov, [facility] [place] [facility] [address] [id number] [place] [address]- 2063 Nov, [facility] [place] [facility] [address] [id number] [place] [address]- 6799 Nov, [facility] [place] [facility] [address] [id number] [place] [address]- 1727 Oct, [facility] [place] [facility] [address] [id number] [place] [address]- 8023 September, [facility] [place] [facility] [address] [id number] [place] [address]- 9902 Aug, [facility] [place] [facility] [address] [id number] [place] [address]- 1337 Aug, [facility] [place] [facility] [address] [id number] [place] [address]- 0418 Aug, [facility] [place] [facility] [address] [id number] [place] [address]- 3964 Aug, [facility] [place] [facility] [address] [id number] [place] [address]- 9279 Aug, [facility] [place] [facility] [address] [id number] [place] [address]- 0526 Aug, [facility] [place] [facility] [address] [id number] [place] [address]- 2780 Aug, [facility] [place] [facility] [address] [id number] [place] [address]- 8801 Aug, [facility] [address] [id number] [place] [address]- 0380 Jul, [facility] [address] [id number] [place] [address]- 3528 Jul, [facility] [address] [facility] [id number] [place] [address]- 0397 Jun, [facility] [place] [facility] [address] [id number] [place] [address]- 8626 Jun, [facility] [address] [id number] [place] [address]- 3528 09 Jun, 2012 [facility] [address] [facility] [id number] [place] [address]- 8399 08 Jun, 2012 [facility] [address] [facility] [id number] [place] [address]- 4199 07 Jun, 2012 [facility] [place] [facility] [address] [facility] [id number] [place] [address]- 2341 07 Jun, 2012 [facility] [address] [facility] [id number] [place] [address]- 7344 04 Jun, 2012 [facility] [address] [facility] [id number] [place] [address]- 2324 May, [facility] [place] [facility] [address] [facility] [id number] [place] [address]- 4008 May, [facility] [place] [facility] [address] [facility] [id number] [place] [address]- 6449 May, [facility] [place] [facility] [address] [id number] [place] [address]- 4787 May, [facility] [place] [facility] [address] [facility] [id number] [place] [address]- 6704 Mar, [facility] [place] [facility] [address] [facility] [id number] [place] [address]- 6929 Mar, [facility] [place] [facility] [address] [facility] [id number] [place] [address]- 8388 24 Jan, 2012 IMMUNIZATIONS No Known Immunizations SOCIAL HISTORY Never Assessed REASON FOR VISIT Controlled refill PLAN OF CARE VITAL SIGNS MEDICATIONS Medication Instructions Dosage Frequency Start Date End Date Duration Status Oxycodone-Acetaminophen 10-325 MG Orally 4 times a day 1 tablet as needed 6h 30 Mar, 2018 28 days Active Marinol 5 mg Orally [...]
--- OUTSIDE RECORDS SUMMARY | 2018-05-04 15:28 | XMS REPORT | Encounter Summary ---
Author Author [facility] Organization [facility] Address Unknown Phone Unavailable Care Team Providers Care Dot Etcher Name Role Phone Aamir Magdaleno MD Unavailable Greyson Powell RN Unavailable Unavailable Ella Carrion RN Unavailable Unavailable Misa Alvarez MD Unavailable Smitha Milian RN Unavailable Unavailable Tito Limon MD Unavailable John Raymond MD Unavailable Chioma Jacques RN Unavailable Unavailable Megan Bryan RN Unavailable Unavailable Myesha Orona [employer] Unavailable Arvin Aguilar RN Unavailable Unavailable Manasa Savage RN Unavailable Unavailable Andrea Durant [employer] Unavailable Jack Davila RN Unavailable Unavailable Vanessa Perez MD Unavailable Radha Malin MD Unavailable Chuck Frias MD PCP Reason for Referral * Radiology Services (Routine) Referred By Contact Referred To Contact Status Reason Specialty Diagnoses / Procedures Chuck Montague Jr., MD [address] [place] [address] New Request Radiology Diagnoses Epiglottic cyst P rocedures CT NECK W/CONTRAST Reason for Visit * Reason Comments Throat Problem Encounter Details Care Team Description Date Type Department Chuck Montague Jr., MD [address] [place] [address] Epiglottic cyst; Neck pain; Calcification of cartilage 04/15/2018 Office Visit [facility] [address] [address] [place] [address] Social History Date Tobacco Use Types Packs/Day Years Used Quit: 01/24/2009 Former Smoker Cigarettes Smokeless Tobacco: Never Used Alcohol Use Drinks/Week oz/Week Comments No 0 Standard 0.0 drinks or equivalent Sex Assigned at Date Recorded Not on file Industry Job Start Date Occupation Not on file Not on file Not on file Travel End Travel History Travel Start No recent travel history available. as of this encounter Last Filed Vital Signs Time Taken Vital Sign Reading 04/15/2018 9:09 AM [facility] NURSE Blood Pressure 104/59 04/15/2018 9:09 AM [facility] NURSE Pulse 95 - Temperature - - Respiratory Rate - - Oxygen Saturation - - Inhaled Oxygen - Concentration 04/15/2018 9:09 AM [facility] NURSE Weight 50.3 kg (111 lb) 04/15/2018 9:09 AM [facility] NURSE Height 157.5 cm (5' 2") 04/15/2018 9:09 AM [facility] NURSE Body Mass Index 20.3 in this encounter Progress Notes * Chuck Montague Jr., MD - 04/15/2018 9:20 AM [facility] RO[facility] NURSE HISTORY OF PRESENT ILLNESS: Sunitha Feldman is a 47 y.o. female who presents to clinic today with left-sided shoulder pain. She has been seen by orthopedic surgeons who did x- ray of her shoulder and neck and identified that she has calcification in the midline neck that was unusual. I reviewed the films and it appears that she has calcification of her thyroid cartilage. She does have some tenderness in the thyroid cartilage with palpation but she also has fibromyalgia and was tender on much of the examination. She has a history of smoking and feels as though her voice has changed slightly becoming deeper. She has some mild difficulties with swallowing but nothing that has been too significant. She has not coughed up any blood. She has not had any breathing difficulties. She is under the impression that the calcifications in the neck are causing her shoulder pain potentially although I doubt this to be the case. Review of Systems Constitutional: Negative. HENT: Positive for sore throat. Eyes: Negative. Respiratory: Negative. Cardiovascular: Negative. Gastrointestinal: Negative. Endocrine: Negative. Genitourinary: Negative. Musculoskeletal: Negative. Skin: Negative. Allergic/Immunologic: Negative. Neurological: Negative. Hematological: Negative. Psychiatric/Behavioral: Negative. atorvastatin (LIPITOR) 40 mg tablet Take 40 mg by mouth daily. CYANOCOBALAMIN (VITAMIN B-12 PO) Take by mouth. dronabinol (MARINOL) 5 mg capsule Take 5 mg by mouth twice daily. ERGOCALCIFEROL (VITAMIN D PO) Take 1,000 Units by mouth Daily. escitalopram (LEXAPRO) 20 mg PO tablet Take 1 Tab by mouth daily. linaclotide 72 mcg cap Take 72 mcg by mouth daily 30 minutes before breakfast. MULTIVITAMINS (MULTIVITAMIN PO) Take by mouth. omeprazole [...] TARTRATE (AMBIEN PO) Take by mouth. Vitals: 04/15/18 0909 BP: 104/59 Pulse: 95 Weight: 50.3 kg (111 lb) Height: 157.5 cm (62") Body mass index is 20.3 kg/m. Physical Exam The patient is awake and alert no acute distress. Skin examination was unremarkable no mass or lesion appreciated no evidence of cellulitis. No evidence of skin cancers. Extraocular muscle mobility is intact. No conjunctival hemorrhage. The auricles were without deformity. External auditory canals are clear no evidence of cerumen fungus or bacterial infection. Tympanic membranes are without effusion or retraction. No evidence of perforation. No cholesteatoma. The nasal airway shows a straight septum without evidence of perforation or significant crusting. There are no evidence of polypoid changes. The inferior turbinate is not congested. There are no active bleeding sites. The oral cavity shows buccal surfaces are without evidence of lichenoid changes or mucosal disease. No leukoplakia. The floor of mouth is without edema. [place]'s ducts and Stensen's ducts are patent with normal salivary flow. The tongue is without mass or lesion. There is normal mobility and sensation. The oropharynx shows normal mucosa. No significant postnasal drainage. Uvula is without edema. Neck was flat no adenopathy or thyromegaly. No parotid masses or submandibular gland masses. Cranial nerves are intact bilaterally. Voice quality is excellent. No airway distress. No stridor. No retractions. After discussing with the patient fiberoptic flexible laryngoscopy was performed through the right nasal airway. The nasal airway had been anesthetized using 4% lidocaine and decongested with [place]-Synephrine. The nasal cavity was clear as was the nasopharynx no mass lesion or polyp. The oropharynx was unremarkable. The hypopharynx shows moderate hypopharyngeal edema. No piriform masses appreciated. Esophageal inlet unremarkable otherwise. The base of tongue vallecula and epiglottis were unremarkable except for a small epiglottic cyst on the laryngeal surface. There was normal vocal cord mobility bilaterally. Mucosal surfaces to the true vocal cords were unremarkable. No evidence of oropharyngeal hypopharyngeal or laryngeal carcinoma. The patient tolerated the procedure well without complication. 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 To gain further information and with her history of smoking and the small cyst I do feel a CT scan of the neck is indicated. She will be checking a CT scan of the neck and following up with us afterwards. I did discuss with her my impression that her left-sided shoulder and arm pain are not likely the result of any of the laryngeal findings today. in this encounter Plan of Treatment Order Schedule Name Priority Associated Diagnoses Expected: 04/15/2018 (Approximate), Expires: 04/15/2019 CT NECK W/CONTRAST Routine Epiglottic cyst as of this encounter Visit Diagnoses Diagnosis Epiglottic cyst Other diseases of larynx Neck pain Cervicalgia Calcification of cartilage Other disorders of bone and cartilage in this encounter
--- OUTSIDE RECORDS SUMMARY | 2018-05-04 15:28 | XMS REPORT | Clinical Summary ---
Author Author [facility] Organization [facility] Address Unknown Phone Unavailable Care Team Providers Care Lumber Carrier Name Role Phone Aamir Magdaleno MD Unavailable Greyson Powell RN Unavailable Unavailable Ella Carrion RN Unavailable Unavailable Misa Alvarez MD Unavailable Smitha Milian RN Unavailable Unavailable Tito Limon MD Unavailable John Raymond MD Unavailable Chioma Jacques RN Unavailable Unavailable Megan Bryan RN Unavailable Unavailable Myesha Orona RESPIRATORY PHYSICIAN Unavailable Arvin Aguilar RN Unavailable Unavailable Manasa Savage RN Unavailable Unavailable Andrea Durant RESPIRATORY PHYSICIAN Unavailable Jack Davila RN Unavailable Unavailable Vanessa Preez MD Unavailable Radha Malin MD Unavailable Chuck Frias MD PCP Source Comments Some departments are not documenting in the electronic medical record. If you do not see the information that you expected, contact Release of Information in the Health Information Management department at [phone] for further assistance in locating additional records.[facility] Allergies Comments Active Allergy Reactions Severity Noted Date Aspirin SWELLING High 05/24/2007 Ciprofloxacin VOMITING Low 11/24/2016 Warfarin RASH, High 05/24/2007 VOMITING, ITCHING Ibuprofen SWELLING High 05/24/2007 Patient reports she tolerates with Benadryl. Ketorolac Tromethamine SWELLING Medium 05/24/2007 Medications End Date Status Medication Sig Dispensed Refills Start Date Active topiramate (TOPAMAX) 100 Take 1 Tab by 60 2 03/17/ mg tablet mouth Twice 9 Daily. Active oxycodone/acetaminophen Take 1 Tab by 30 0 200 (PERCOCET) 5/325 mg mouth Every 4 9 tablet Hours as needed for Pain. Active ZOLPIDEM TARTRATE (AMBIEN Take by 0 PO) mouth. Active MULTIVITAMINS Take by 0 (MULTIVITAMIN PO) mouth. Active CYANOCOBALAMIN (VITAMIN Take by 0 B-12 PO) mouth. Active ERGOCALCIFEROL (VITAMIN D Take 1,000 0 PO) Units by mouth Daily. Active escitalopram (LEXAPRO) 20 Take 1 Tab by 30 Tab 0 mg PO tablet mouth daily. 1 Active pregabalin (LYRICA) 300 Take 300 mg 0 mg capsule by mouth twice daily. Active atorvastatin (LIPITOR) 40 Take 40 mg by 0 mg tablet mouth daily. Active rivaroxaban (XARELTO) 20 Take 20 mg by 0 mg tablet mouth daily. Take with food. Active omeprazole DR(+) Take 40 mg by 0 (PRILOSEC) 40 mg capsule mouth daily before breakfast. Active dronabinol (MARINOL) 5 mg Take 5 mg by 0 capsule mouth twice daily. Active spacer inhalation device by SEE ADMIN 0 (AEROCHAMBER) INSTRUCTIONS spcrIndications: PRN route as directed. Indications: PRN Active other medication 1 Dose. 0 humalog lantis 30 untis @@ night Active TIZANIDINE HCL Take by 0 (TIZANIDINE PO) mouth. Active linaclotide 72 mcg cap Take 72 mcg 30 capsule 2 by mouth 8 daily 30 minutes before breakfast. Active polyethylene glycol 3350 Take 17 g by 510 g 2 (MIRALAX) 17 gram/dose mouth daily. 8 powder Active Problems Problem Noted Date Epiglottic cyst 04/15/2018 Neck pain 04/15/2018 Calcification of cartilage 04/15/2018 Gastroesophageal reflux disease without esophagitis 07/29/2017 Gastroparesis 07/29/2017 Smoker 07/29/2017 Constipation 02/21/2017 Overview: Added automatically from request for surgery [id number] Superior mesenteric artery syndrome 03/17/2009 Anemia 03/17/2009 Vitamin D deficiency 03/17/2009 Malnutrition 03/17/2009 Weight loss, unintentional 03/06/2009 Migraine 09/17/2008 Depression 09/17/2008 Anxiety 09/17/2008 Suicide attempt 09/17/2008 Asthma 09/17/2008 Chronic pain 09/17/2008 Resolved Problems Problem Noted Date Resolved Date Abdominal pain 09/17/2008 07/29/2017 Encounters Care Team Description Date Type Specialty Chuck Montague Jr., MD Epiglottic cyst; Neck pain; Calcification of cartilage 04/15/2018 Office Visit Otolaryngology from Last 3 Months Immunizations Name Dates Previously Given Next Due FLU VACCINE >3YO 03/04/2009 (Preservative Free) Family History Relation Name Status Comments Mother Social History Date Tobacco Use Types Packs/Day Years Used Quit: 01/24/2009 Former Smoker Cigarettes Smokeless Tobacco: Never Used Alcohol Use Drinks/Week oz/Week Comments No 0 Standard 0.0 drinks or equivalent Sex Assigned at Date Recorded Not on file Industry Job Start Date Occupation Not on file Not on file Not on file Travel End Travel History Travel Start No recent travel history available. Last Filed Vital Signs Time Taken Vital Sign Reading 04/15/2018 9:09 AM UNHAIRER Blood Pressure 104/59 04/15/2018 9:09 AM UNHAIRER Pulse 95 12/10/2017 3:27 PM CDT Temperature 36.9 C (98.4 F) 07/29/2017 11:22 AM UNHAIRER Respiratory Rate 18 12/10/2017 3:27 PM CDT Oxygen Saturation 100% - Inhaled Oxygen - Concentration 04/15/2018 9:09 AM UNHAIRER Weight 50.3 kg (111 lb) 04/15/2018 9:09 AM UNHAIRER Height 157.5 cm (5' 2") 04/15/2018 9:09 AM UNHAIRER Body Mass Index 20.3 Plan of Treatment Health Maintenance Due Date Last Done Comments PHYSICAL (COMPREHENSIVE) 1978 EXAM DTAP/TDAP VACCINES ( - 1989 Tdap) CERVICAL CANCER SCREENING 2001 BREAST CANCER SCREENING 2011 INFLUENZA VACCINE 12/24/2017 03/04/2009, 04/20/2008 HIV SCREENING Completed 03/03/2009 Results Not on filefrom Last 3 Months Insurance Payer Benefit Subscriber ID Type Phone Address Plan / Group MEDICARE MEDICARE xxxxxxxxxx Medicare PART A AND B [facility] MEDICAID [facility] xxxxxxxxxxx Medicaid [employer] [place] Advance Directives Patient has advance care planning documents, and code status on file. For more information, please contact: [facility] [address] [place] [address] Date Inactivated Comments Code Status Date Activated 03/17/2009 8:26 PM Full Code 03/02/2009 5:47 PM 09/17/2008 7:51 PM Full Code 09/15/2008 11:04 PM
--- OUTSIDE RECORDS SUMMARY | 2018-05-04 15:29 | XMS REPORT ---
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 Name Role Phone HORACE HIGGINS Unavailable PROBLEMS Type Condition ICD9-CM Code BEG00-KL Code Onset Dates Condition Status SNOMED Code Problem Asthma exacerbation J45.901 Active 033050978 Problem Diabetic polyneuropathy associated with type 2 diabetes mellitus E11.42 Active 10712274 Problem Reactive depression F32.9 Active 20104291 Problem Other chronic pain G89.29 Active 88230024 Problem Neuropathy G62.9 Active 023657566 Problem Irritable bowel syndrome with constipation K58.1 Active 179529022 Problem Back pain M54.9 Active 116514467 Problem Low TSH level R94.6 Active 438391998 Problem Migraine without aura and without status migrainosus, not intractable G43.009 Active 039887653 Problem PTSD (post-traumatic stress disorder) F43.10 Active 55867188 Problem Tobacco dependency F17.200 Active 34779096 Problem Annual physical exam Z00.00 Active 114587826 Problem Mixed hyperlipidemia E78.2 Active 553100737 Problem Type 2 diabetes mellitus with diabetic autonomic (poly)neuropathy E11.43 Active 73968076 Problem Diabetes E11.9 Active 80504657 Problem Gastroparesis K31.84 Active 880031418 Problem Anorexia R63.0 Active 69482903 Problem Weight loss R63.4 Active 659838156 Problem 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 Active 629229838 Problem History of colon polyps Z86.010 Active 742567987 Problem Uncomplicated asthma, unspecified asthma severity J45.909 Active 535653670 Problem Primary insomnia F51.01 Active 1917316 ALLERGIES No Information ENCOUNTERS Encounter Location Date Diagnosis [facility] [address] [facility] [id number] [place] [address] May, [facility] [id number] [place] [address] 19576- 3954 Apr, [facility] [id number] [place] [address] 14578- 5626 Apr, [facility] [id number] [place] [address] 08524- 4386 30 Mar, 2018 LLQ pain R10.32 and Other dorsalgia M54.89 [facility] [id number] [place] [address] 61223- 8186 Mar, [facility] [id number] [place] [address] 56767- 1087 15 Mar, 2018 Pain in left shoulder M25.512 [facility] [id number] [place] [address] 28360- 9316 14 Mar, 2018 [facility] [id number] [place] [address] 09193- 9329 Mar, [facility] [id number] [place] [address] 43351- 3391 Mar, [facility] [id number] [place] [address] 17814- 2859 Mar, Vaginal discharge N89.8 [facility] [id number] [place] [address] 33344- 1462 07 Mar, 2018 PTSD (post-traumatic stress disorder) F43.10 [facility] [id number] [place] [address] 85781- 8381 Mar, [facility] [id number] [place] [address] 06607- 2058 Feb, LLQ pain R10.32 and Other dorsalgia M54.89 [facility] [id number] [place] [address] 46742- 0213 24 Feb, 2018 [facility] [id number] [place] [address] 10103- 9966 Feb, [facility] [id number] [place] [address] 24496- 8691 Feb, PTSD (post-traumatic stress disorder) F43.10 [facility] [id number] [place] [address] 82596- 1819 Feb, PTSD (post-traumatic stress disorder) F43.10 [facility] [id number] [place] [address] 01890- 3038 Feb, Pain in left shoulder M25.512 and Other chronic pain G89.29 [facility] [address] 49137- 0121 Feb, LLQ pain R10.32 and Other dorsalgia M54.89 [facility] [id number] [place] [address] 33932- 1663 Feb, [facility] [address] 30203- 6812 Feb, Right lower quadrant abdominal pain R10.31 ; Pain in left shoulder M25.512 ; Other chronic pain G89.29 and Encounter for immunization Z23 [facility] [address] 11654- 0035 Feb, [facility] [id number] [place] [address] 70529- 2449 Jan, Dysfunction of left eustachian tube H69.82 [facility] [id number] [place] [address] 31612- 8363 24 Jan, 2018 [facility] [id number] [place] [address] 95491- 3430 Jan, [facility] [address] 53214- 7414 Jan, [facility] [id number] [place] [address] 66117- 1526 Jan, [facility] [address] 82714- 8557 Jan, Left upper arm pain M79.622 [facility] [id number] [place] [address] 83794- 6727 Jan, [place] [address] 21168- 5603 Jan, PTSD (post-traumatic stress disorder) F43.10 and Tobacco dependency F17.200 [place] [address] 25757- 6429 Jan, Back pain M54.9 ; Type 2 diabetes mellitus with diabetic autonomic (poly)neuropathy E11.43 ; Neuropathy G62.9 ; Irritable bowel syndrome with constipation K58.1 ; Sprain of other part of left shoulder region, initial encounter S43.492A and Dysfunction of left eustachian tube H69.82 [place] [address] 12171- 2367 Jan, [place] [address] 51047- 5280 05 Jan, 2018 Neuropathy G62.9 ; LLQ pain R10.32 and Other dorsalgia M54.89 [place] [address] 40535- 2697 Jan, [place] [address] 34172- 2839 Jan, [place] [address] 46602- 6701 Dec, Right upper quadrant abdominal pain R10.11 [place] [address] 05323- 9895 Dec, PTSD (post-traumatic stress disorder) F43.10 [facility] [id number] [place] [address] 71604- 8142 Dec, LLQ pain R10.32 [place] [address] 35089- 2445 Dec, Other dorsalgia M54.89 [facility] [id number] [place] [address] 63692- 6052 Dec, Neuropathy G62.9 [facility] [address] 18263- 1795 Dec, [facility] [address] 61908- 5086 Nov, Irritable bowel syndrome with constipation K58.1 ; Uncomplicated asthma, unspecified asthma severity J45.909 and Type 2 diabetes mellitus with diabetic autonomic (poly)neuropathy E11.43 [facility] [address] [id number] Nov, Dental examination Z01.20 [place] [address] 66910- 9903 Nov, Other dorsalgia M54.89 [place] [address] 40572- 6897 Nov, LLQ pain R10.32 ; Low TSH level R94.6 and Gastroparesis K31.84 [place] [address] 24422- 0547 Nov, Anorexia R63.0 [place] [address] 55012- 3853 Nov, Asthma exacerbation J45.901 [place] [address] 72593- 4673 Oct, PTSD (post-traumatic stress disorder) F43.10 [place] [address] 87207- 4512 Oct, [place] [place] [address] 13691- 9992 Oct, PTSD (post-traumatic stress disorder) F43.10 and Tobacco dependency F17.200 [place] [address] [place] [address] 4587 Oct, [facility] [address] 06041- 2240 Oct, Other dorsalgia M54.89 [facility] [address] 04340- 3231 Oct, Anorexia R63.0 [place] [address] 83359- 7275 September, PTSD (post-traumatic stress disorder) F43.10 [place] [address] 074229- 5731 September, Low TSH level R94.6 [place] [address] 54729- 4532 September, Other dorsalgia M54.89 [place] [address] 54476- 1424 September, Annual physical exam Z00.00 and Migraine without aura and without status migrainosus, not intractable G43.009 [place] [address] 21931- 0105 September, Abnormal TSH R94.6 and Dysfunction of left eustachian tube H69.82 [place] [address] 37202- 1229 Aug, [facility] [address] 430326- 6814 Aug, Anorexia R63.0 [facility] [address] [id number] Aug, Dental examination Z01.20 and Xerostomia K11.7 [facility] [address] 30953- 9359 Aug, Neuropathy G62.9 [place] [address] 83280- 5549 Aug, [facility] [id number] [place] [address] 25881- 2086 Aug, Other dorsalgia M54.89 [facility] [id number] [place] [address] 00500 2546 Aug, Type 2 diabetes mellitus with diabetic autonomic (poly) neuropathy E11.43 ; Diabetic polyneuropathy associated with type 2 diabetes mellitus E11.42 ; Bronchitis J40 ; Gastroparesis K31.84 and Reactive depression F32.9 [facility] [id number] [place] [address] 08479- 9206 Aug, PTSD (post-traumatic stress disorder) F43.10 [facility] [id number] [place] [address] 10048- 6386 Aug, Other dorsalgia M54.89 and Anorexia R63.0 [facility] [address] 34817- 5046 Jul, [facility] [id number] [place] [address] 89822- 3020 Jul, Other dorsalgia M54.89 [facility] [id number] [place] [address] 70282- 2456 Jul, [facility] [id number] [place] [address] 08384- 4214 Jul, [facility] [id number] [place] [address] 51279- 4033 Jul, PTSD (post-traumatic stress disorder) F43.10 [facility] [id number] [place] [address] 74960- 7116 Jul, [facility] [id number] [place] [address] 37432- 8036 Jul, [facility] [id number] [place] [address] 75316- 9196 Jul, [facility] [address] [place] [address]- 0586 Jul, Anorexia R63.0 [facility] [address] 93844 2546 Jun, [facility] [id number] [place] [address] 07001 2546 Jun, Vaginal discharge N89.8 ; Visit for gynecologic examination Z01.419 and Pelvic pressure in female R10.2 [facility] [address] 87692 2546 Jun, [facility] [address] 70463 2546 Jun, Other dorsalgia M54.89 [facility] [address] 95257 2546 Jun, [facility] [address] 58623- 7296 Jun, [facility] [id number] [place] [address] 68510- 4896 Jun, [facility] [address] 58507 2546 May, Back pain M54.9 [facility] [id number] [place] [address] 85622 2546 May, Anorexia R63.0 [facility] [id number] [place] [address] 07517 2546 May, Other dorsalgia M54.89 [facility] [address] 09197 2546 May, [facility] [address] 06659 2546 May, Bronchitis J40 [facility] [id number] [place] [address] 68371 2546 May, Type 2 diabetes mellitus with diabetic autonomic (poly) neuropathy E11.43 ; 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 ; Back pain M54.9 and Neuropathy G62.9 [place] [address] 75957- 0980 May, Left breast mass N63.20 [facility] [address] 94423- 9776 May, [facility] [address] 10410- 5024 Apr, Other dorsalgia M54.89 [place] [address] 27211- 5840 Apr, Anorexia R63.0 [place] [address] 48947- 6579 Apr, Anorexia R63.0 [place] [address] 37125- 9632 Apr, Mass of left breast N63.20 [place] [address] 87956- 9439 Apr, [place] [address] 01783- 7711 Apr, [place] [address] 41676- 2471 Apr, Diarrhea of presumed infectious origin A09 [place] [address] 40238- 1583 Apr, Encounter for immunization Z23 [place] [address] 60554- 5742 Apr, [place] [address] 87680- 7812 Mar, Other dorsalgia M54.89 [place] [address] 71153- 6940 Mar, [facility] [id number] [place] [address] 17418- 6003 Mar, [facility] [address] 89211- 0623 Mar, Anorexia R63.0 [facility] [id number] [place] [address] 05329- 0655 Mar, [facility] [address] 99174- 6277 Mar, Other dorsalgia M54.89 [facility] [address] 26234- 5017 Mar, [facility] [id number] [place] [address] 05545- 8449 Mar, Encounter for immunization Z23 [facility] [address] 32212- 8618 Feb, Anorexia R63.0 [facility] [id number] [place] [address] 55503- 3588 Feb, Diabetes E11.9 [facility] [address] 44228- 8215 Feb, Back pain M54.9 and Diabetes E11.9 [facility] [id number] [place] [address] 97595- 1681 Feb, Diabetes E11.9 [facility] [id number] [place] [address] 81029- 2844 Feb, Neuropathy G62.9 [facility] [id number] [place] [address] 86902- 2991 Feb, Encounter for immunization Z23 ; Epigastric pain R10.13 ; Weight loss, abnormal R63.4 and Neuropathy G62.9 [facility] [id number] [place] [address] [id number] Feb, [facility] [id number] [place] [address] 95247- 8834 Feb, [facility] [address] 96095- 1086 Feb, Intractable vomiting with nausea, unspecified vomiting type R11.2 [facility] [id number] [place] [address] 48411 -7691 Feb, Chronic nausea R11.0 [facility] [address] 76746- 3204 Feb, Other dorsalgia M54.89 [facility] [address] 60160- 6961 Jan, [facility] [address] 12124- 3735 Jan, [facility] [address] 77942- 1450 Jan, [facility] [id number] [place] [address] 93812- 9876 Jan, [facility] [address] 75001- 4126 Jan, Asthma exacerbation J45.901 ; Bronchitis J40 and Neuropathy G62.9 [facility] [id number] [place] [address] 35295- 8378 Jan, Anorexia R63.0 [facility] [id number] [place] [address] 32100- 3391 Jan, Other dorsalgia M54.89 [facility] [address] 45061- 9847 Dec, [facility] [address] 26306- 7160 Dec, [facility] [id number] [place] [address] 55080- 4229 Dec, Anorexia R63.0 [facility] [id number] [place] [address] 21170- 5477 Dec, Primary insomnia F51.01 [facility] [id number] [place] [address] 51027- 3387 Dec, Other dorsalgia M54.89 [facility] [id number] [place] [address] 35921- 7506 Dec, [facility] [address] 81110- 9143 Nov, [facility] [id number] [place] [address] 87380- 8296 Nov, [facility] [address] 38511- 4745 Nov, [facility] [id number] [place] [address] 71719- 6233 Nov, History of colon polyps Z86.010 [facility] [id number] [place] [address] 95748- 2666 Nov, Weight loss R63.4 ; Nausea and vomiting, intractability of vomiting not specified, unspecified vomiting type R11.2 and Abnormal LFTs R79.89 [facility] [id number] [place] [address] 36241- 2211 Nov, [facility] [id number] [place] [address] 97772- 8573 Nov, Neuropathy G62.9 and Pain in right knee M25.561 [facility] [id number] [place] [address] 15520- 8295 Nov, Back pain M54.9 [facility] [id number] [place] [address] 63043- 8740 Nov, [facility] [id number] [place] [address] 39705- 9601 Nov, Bronchitis J40 [facility] [id number] [place] [address] 82788- 7668 Nov, Weight loss R63.4 [facility] [id number] [place] [address] 06657- 7234 Oct, Back pain M54.9 [facility] [id number] [place] [address] 34720- 6888 Oct, [facility] [id number] [place] [address] 91933- 6878 Oct, Back pain M54.9 [facility] [id number] [place] [address] 47241- 6107 Oct, Type 2 diabetes mellitus without complications E11.9 and Bronchitis J40 [facility] [id number] [place] [address] 02123- 1514 Oct, [facility] [id number] [place] [address] 53340- 5085 Oct, [facility] [id number] [place] [address] 96927- 0243 September, Gastroparesis K31.84 ; Type 2 diabetes mellitus with diabetic autonomic (poly)neuropathy E11.43 and Neuropathy G62.9 [facility] [id number] [place] [address] 40803- 8447 September, Other dorsalgia M54.89 [facility] [id number] [place] [address] 16719- 5629 September, [facility] [id number] [place] [address] 57900- 2695 September, [facility] [id number] [place] [address] 55162- 4148 Aug, Gastroparesis K31.84 and Radicular leg pain M54.10 [facility] [id number] [place] [address] 59308- 5524 24 Apr, 2017 Anorexia R63.0 [facility] [id number] [place] [address] 27725- 3521 Aug, Bronchitis J40 [place] [address] 71106- 4085 Aug, Back pain M54.9 [place] [id number] [place] [address] 79227- 7492 04 Aug, 2016 Routine gynecological examination Z01.419 ; Routine screening for STI (sexually transmitted infection) Z11.3 and Yeast infection of the vagina B37.3 [facility] [place] [id number] [place] [address] 63770- 6056 Jul, Other dorsalgia M54.89 [facility] [place] [id number] [place] [address] 26632- 1923 Jul, Diabetes E11.9 and Gastroparesis K31.84 [place] [address] 12465- 9358 28 Jun, 2016 [facility] [id number] [place] [address] 87284- 2116 24 Jun, 2016 Back pain M54.9 [place] [id number] [place] [address] 35585- 2267 14 Jun, 2016 Neuropathy G62.9 [facility] [id number] [place] [address] [id number] 02 Jun, 2016 Encounter for dental examination Z01.20 [facility] [id number] [place] [address] 62598- 3610 Jun, Gastroparesis 536.3 and Anorexia R63.0 [place] [address] 02045- 5345 May, Other dorsalgia M54.89 [place] [id number] [place] [address] 90962- 5007 May, Periumbilical abdominal pain R10.33 ; Weight loss R63.4 and Gastroparesis K31.84 [facility] [id number] [place] [address] 82231- 1088 May, Back pain M54.9 [facility] [id number] [place] [address] 10221 2546 23 Apr, 2016 Anorexia R63.0 [facility] [address] 78063 2546 Apr, Anorexia R63.0 [facility] [address] 50847 2546 16 Apr, 2016 Back pain M54.9 [facility] [address] 87323- 7148 Apr, Back pain M54.9 [facility] [address] 00395- 7746 Apr, [facility] [address] 15376 2542 Apr, Bronchitis J40 and Neuropathy G62.9 [facility] [address] 97017 2546 Apr, Neuropathy G62.9 [facility] [id number] [place] [address] 13181 254 05 Apr, 2016 [facility] [id number] [place] [address] 07184 2540 Apr, Back pain M54.9 [facility] [id number] [place] [address] 38043 254 Mar, Type 2 diabetes mellitus with diabetic autonomic (poly) neuropathy E11.43 [facility] [id number] [place] [address] 77862- 4626 Mar, Type 2 diabetes mellitus without complications E11.9 [facility] [id number] [place] [address] 35637- 3191 Mar, Neuropathy G62.9 [facility] [id number] [place] [address] 89657- 6707 Mar, [facility] [id number] [place] [address] 37026- 6876 Mar, Breast cancer screening Z12.39 [facility] [id number] [place] [address] 45251- 1487 Mar, Other dorsalgia M54.89 [facility] [id number] [place] [address] 12032- 4366 Feb, [facility] [id number] [place] [address] 39463- 3940 Jan, Neuropathy G62.9 ; Type 2 diabetes mellitus with diabetic autonomic (poly)neuropathy E11.43 ; Uncomplicated asthma, unspecified asthma severity J45.909 and Encounter for immunization Z23 [facility] [id number] [place] [address] 55919- 0981 Jan, [facility] [id number] [place] [address] 40360- 0849 Jan, [facility] [id number] [place] [address] 68754- 4167 Dec, [facility] [id number] [place] [address] 80211- 6099 Dec, [facility] [id number] [place] [address] 16448- 1682 Nov, [facility] [id number] [place] [address] 94272- 8329 Nov, Back pain M54.9 [facility] [id number] [place] [address] 96067- 7142 Nov, Neuropathy G62.9 ; Mixed hyperlipidemia E78.2 ; Type 2 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 [facility] [id number] [place] [address] 11899- 7727 Oct, [facility] [id number] [place] [address] 38525- 7959 Oct, Other dorsalgia M54.89 [facility] [id number] [place] [address] 91076- 4079 September, Primary insomnia F51.01 [facility] [address] [address] [address] September, [facility] [id number] [place] [address] 03814- 8699 Aug, Other dorsalgia M54.89 [facility] [id number] [place] [address] 04970- 0525 Jul, [facility] [id number] [place] [address] 78482- 7711 Jul, Other dorsalgia M54.89 [facility] [id number] [place] [address] 93815- 2457 Jul, Diabetes E11.9 ; Back pain M54.9 ; Neuropathy G62.9 and Gastroparesis K31.84 [facility] [id number] [place] [address] 96173- 8183 Jun, [facility] [id number] [place] [address] 11141- 1264 Jun, Other dorsalgia M54.89 [facility] [id number] [place] [address] 10955- 4925 May, [facility] [id number] [place] [address] 97387- 3792 May, Radicular leg pain M54.10 and Other dorsalgia M54.89 [facility] [id number] [place] [address] 08365- 7161 Apr, [facility] [id number] [place] [address] 98962- 4183 Mar, [facility] [id number] [address] Mar, [facility] [id number] [place] [address] 33944- 7872 Mar, Radicular leg pain M54.10 [facility] [id number] [place] [address] 63956- 2018 Feb, [facility] [id number] [place] [address] 99042- 8205 Feb, [facility] [id number] [place] [address] 70137- 5506 Feb, [facility] [id number] [place] [address] 44549- 9816 Jan, [facility] [id number] [place] [address] 16337- 8309 Jan, IBS (irritable bowel syndrome) 564.1 [facility] [id number] [place] [address] 32766- 0202 Jan, [facility] [id number] [place] [address] 79690- 7184 Jan, [facility] [id number] [place] [address] 62732- 3498 Jan, Diabetes mellitus without mention of complication, type II or unspecified type, not stated as uncontrolled 250.00 ; Gastroparesis 536.3 and Hypoacusis 389.9 [facility] [id number] [address] 6[address] Jan, [facility] [id number] [place] [address] 91776- 9733 Jan, [facility] [id number] [place] [address] 64861- 6224 Dec, [facility] [id number] [address] 6927 Dec, [facility] [id number] [place] [address] 56098- 1426 Dec, [facility] [id number] [place] [address] 61338- 0854 Dec, Back pain 724.5 and Gastroparesis 536.3 [facility] [address] [address]- 4582 Nov, [facility] [id number] [place] [address] [id number] Nov, Dental examination V72.2 [facility] [id number] [place] [address] 89105- 6764 Nov, [facility] [id number] [place] [address] 63864- 4256 Nov, [facility] [id number] [place] [address] 34597- 9726 Nov, Depressive disorder, not elsewhere classified 311 and No condition on Paulina II V71.09 [facility] [id number] [place] [address] 45799- 5043 Nov, Diabetes 250.00 and Symptomatic menopausal or female climacteric states 627.2 [facility] [id number] [place] [address] 49650- 3323 Oct, [facility] [id number] [place] [address] 10891- 0218 Oct, Lumbar strain 847.2 [facility] [id number] [place] [address] 09194- 0250 Oct, Gastroparesis 536.3 and Unspecified myalgia and myositis 729.1 [facility] [id number] [place] [address] 33015- 1804 Aug, [facility] [id number] [place] [address] 90897- 9677 Aug, [facility] [place] [facility] [address] [id number] [place] [address]- 6830 Jul, [facility] [place] [facility] [address] [id number] [place] [address]- 4821 Jul, [facility] [place] [facility] [address] [id number] [place] [address]- 9490 Jul, [facility] [place] [facility] [address] [id number] [place] [address]- 9373 Jul, [facility] [place] [facility] [address] [id number] [place] [address]- 6679 Jul, [facility] [place] [facility] [address] [id number] [place] [address]- 9288 Jun, [facility] [place] [facility] [address] [facility] [id number] [place] [address]- 0078 Jun, [facility] [place] [facility] [address] [id number] [place] [address]- 5982 Jun, [facility] [place] [facility] [address] [id number] [place] [address]- 8207 May, [facility] [place] [facility] [address] [facility] [id number] [place] [address]- 7529 May, [facility] [place] [facility] [address] [id number] [place] [address]- 0295 Mar, [facility] [place] [facility] [address] [id number] [place] [address]- 3065 Mar, [facility] [place] [facility] [address] [id number] [place] [address]- 8659 Mar, [facility] [place] [facility] [address] [id number] [place] [address]- 5972 Mar, [facility] [place] [facility] [address] [facility] [id number] [place] [address] Mar, [facility] [place] [facility] [address] [id number] [place] [address]- 4771 Mar, [facility] [address] [id number] [place] [address]- 5177 Feb, [facility] [place] [facility] [address] [id number] [place] [address]- 3710 Feb, [facility] [place] [facility] [address] [id number] [place] [address]- 2938 Nov, [facility] [place] [facility] [address] [id number] [place] [address]- 9612 Nov, [facility] [place] [facility] [address] [id number] [place] [address]- 7639 Nov, [facility] [place] [facility] [address] [id number] [place] [address]- 0947 Oct, [facility] [place] [facility] [address] [id number] [place] [address]- 8464 September, [facility] [place] [facility] [address] [id number] [place] [address]- 2467 Aug, [facility] [place] [facility] [address] [id number] [place] [address]- 7580 Aug, [facility] [place] [facility] [address] [id number] [place] [address]- 6544 Aug, [facility] [place] [facility] [address] [id number] [place] [address]- 7995 Aug, [facility] [place] [facility] [address] [id number] [place] [address]- 1733 Aug, [facility] [place] [facility] [address] [id number] [place] [address]- 7502 Aug, [facility] [place] [facility] [address] [id number] [place] [address]- 9859 Aug, [facility] [place] [facility] [address] [id number] [place] [address]- 3746 Aug, [facility] [address] [id number] [place] [address]- 7456 Jul, [facility] [address] [id number] [place] [address]- 6015 Jul, [facility] [address] [facility] [id number] [place] [address]- 8013 Jun, [facility] [place] [facility] [address] [id number] [place] [address]- 9819 Jun, [facility] [address] [id number] [place] [address]- 1268 09 Jun, 2012 [facility] [address] [facility] [id number] [place] [address]- 4242 08 Jun, 2012 [facility] [address] [facility] [id number] [place] [address]- 8689 07 Jun, 2012 [facility] [place] [facility] [address] [facility] [id number] [place] [address]- 1473 07 Jun, 2012 [facility] [address] [facility] [id number] [place] [address]- 8269 04 Jun, 2012 [facility] [address] [facility] [id number] [place] [address]- 3051 May, [facility] [place] [facility] [address] [facility] [id number] [place] [address]- 6743 May, [facility] [place] [facility] [address] [facility] [id number] [place] [address]- 1153 May, [facility] [place] [facility] [address] [id number] [place] [address]- 3498 May, [facility] [place] [facility] [address] [facility] [id number] [place] [address]- 8313 Mar, [facility] [place] [facility] [address] [facility] [id number] [place] [address]- 9179 Mar, [facility] [place] [facility] [address] [facility] [id number] [place] [address]- 9383 24 Jan, 2012 IMMUNIZATIONS No Known Immunizations SOCIAL HISTORY Never Assessed REASON FOR VISIT Controlled Med Refill 04/24 PLAN OF CARE VITAL SIGNS MEDICATIONS Medication Instructions Dosage Frequency Start Date End Date Duration Status Zolpidem Tartrate 10 mg TAKE ONE TABLET BY MOUTH ONCE DAILY 28 days Active RESULTS No Results PROCEDURES [...] vomitting-[facility] 03/05/17 Hospitalization History hospital stay at [facility] for stomach issues 2016
--- OUTSIDE RECORDS SUMMARY | 2018-05-04 15:30 | XMS REPORT ---
Author Author HORACE HIGGINS [facility] Address [address] [place] [address] Care Team Providers Care Tobacco Grower Name Role Phone HORACE HIGGINS Unavailable PROBLEMS Type Condition ICD9-CM Code [id number] Code Onset Dates Condition Status SNOMED Code Problem Asthma exacerbation J45.901 Active 602750382 Problem Diabetic polyneuropathy associated with type 2 diabetes mellitus E11.42 Active 09568538 Problem Reactive depression F32.9 Active 16470801 Problem Other chronic pain G89.29 Active 35032551 Problem Neuropathy G62.9 Active 517058510 Problem Irritable bowel syndrome with constipation K58.1 Active 953123116 Problem Back pain M54.9 Active 360989391 Problem Low TSH level R94.6 Active 129149559 Problem Migraine without aura and without status migrainosus, not intractable G43.009 Active 792329753 Problem PTSD (post-traumatic stress disorder) F43.10 Active 25348849 Problem Tobacco dependency F17.200 Active 12818351 Problem Annual physical exam Z00.00 Active 543399832 Problem Mixed hyperlipidemia E78.2 Active 222878973 Problem Type 2 diabetes mellitus with diabetic autonomic (poly)neuropathy E11.43 Active 66121563 Problem Diabetes E11.9 Active 67045559 Problem Gastroparesis K31.84 Active 512155335 Problem Anorexia R63.0 Active 36121390 Problem Weight loss R63.4 Active 555920202 Problem 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 use 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 Z79.4 Active 346252710 Problem History of colon polyps Z86.010 Active 639309460 Problem Uncomplicated asthma, unspecified asthma severity J45.909 Active 734470069 Problem Primary insomnia F51.01 Active 2832433 ALLERGIES No Information ENCOUNTERS Encounter Location Date Diagnosis [facility], [place] [address] [facility] [id number] [place] [address] May, [facility], [place] [address] [place] [id number] [place] [address] 13254- 5212 Apr, [facility], [place] [address] [id number] [place] [address] 26204- 5356 Apr, [facility], [place] [address] [id number] [place] [address] 46073- 3697 Mar, Pain in left shoulder M25.512 [facility], [place] [address] [id number] [place] [address] 27431- 7416 Mar, [facility], [place] [id number] [place] [address] 38432- 1364 Mar, [facility], [place] [id number] [place] [address] 93245- 2539 Mar, [facility], [place] [id number] [place] [address] 58500- 5936 Mar, Vaginal discharge N89.8 [facility], [place] [id number] [place] [address] 14357- 5904 Mar, PTSD (post-traumatic stress disorder) F43.10 [facility], [place] [id number] [place] [address] 39878- 2034 Mar, [facility], [place] [id number] [place] [address] 22270- 5642 Feb, LLQ pain R10.32 and Other dorsalgia M54.89 [facility], [place] [id number] [place] [address] 84614- 5547 Feb, [facility], [place] [id number] [place] [address] 26495- 5904 Feb, [facility], [place] [address] [id number] [place] [address] 68391- 3884 Feb, PTSD (post-traumatic stress disorder) F43.10 [facility], [place] [id number] [place] [address] 38263- 0636 Feb, PTSD (post-traumatic stress disorder) F43.10 [facility], [place] [id number] [place] [address] 45015- 4439 Feb, Pain in left shoulder M25.512 and Other chronic pain G89.29 [facility], [place] [address] 08703- 0972 Feb, LLQ pain R10.32 and Other dorsalgia M54.89 [facility], [place] [address] 81468- 0573 Feb, [facility], [place] [address] 43017- 5141 Feb, Right lower quadrant abdominal pain R10.31 ; Pain in left shoulder M25.512 ; Other chronic pain G89.29 and Encounter for immunization Z23 [facility], [place] [address] 33471- 4693 Feb, [facility], [place] [address] 93394- 2385 Jan, Dysfunction of left eustachian tube H69.82 [facility], [place] [address] 60396- 6537 24 Jan, 2018 [facility], [place] [id number] [place] [address] 45536- 8633 Jan, [facility], [place] [id number] [place] [address] 19415- 3000 Jan, [facility], [place] [address] 09743- 2542 Jan, [facility], [place] [address] 34621- 3950 18 Jan, 2018 Left upper arm pain M79.622 [facility], [place] [id number] [place] [address] 79302- 6628 Jan, [facility], [place] [address] 71407- 9493 Jan, PTSD (post-traumatic stress disorder) F43.10 and Tobacco dependency F17.200 [place] [id number] 80040- 8263 Jan, Back pain M54.9 ; Type 2 diabetes mellitus with diabetic autonomic (poly)neuropathy E11.43 ; Neuropathy G62.9 ; Irritable bowel syndrome with constipation K58.1 ; Sprain of other part of left shoulder region, initial encounter S43.492A and Dysfunction of left eustachian tube H69.82 [facility], [place] [address] 13805- 7407 Jan, [place] [address] 94931- 6001 Jan, Neuropathy G62.9 ; LLQ pain R10.32 and Other dorsalgia M54.89 [place] [address] 78577- 4473 Jan, [place] [address] 16515- 6093 Jan, [place] [address] 79469- 9063 Dec, Right upper quadrant abdominal pain R10.11 [place] [address] 97566- 5918 Dec, PTSD (post-traumatic stress disorder) F43.10 [place] [address] 89839- 7116 Dec, LLQ pain R10.32 [place] [address] 04598- 8401 Dec, Other dorsalgia M54.89 [facility], [place] [address] 43356- 2057 Dec, Neuropathy G62.9 [facility], [place] [address] 50707- 6223 Dec, [place] [address] [id number] [place] [address] 47079- 1174 Nov, Irritable bowel syndrome with constipation K58.1 ; Uncomplicated asthma, unspecified asthma severity J45.909 and Type 2 diabetes mellitus with diabetic autonomic (poly)neuropathy E11.43 [facility] [address] [id number] Nov, Dental examination Z01.20 [place] [address] 91956- 8785 Nov, Other dorsalgia M54.89 [place] [address] 77360- 0787 Nov, LLQ pain R10.32 ; Low TSH level R94.6 and Gastroparesis K31.84 [place] [address] 35755- 2370 Nov, Anorexia R63.0 [place] [address] 92598- 9994 Nov, Asthma exacerbation J45.901 [place] [address] 36612- 5473 Oct, PTSD (post-traumatic stress disorder) F43.10 [place] [address] 75550- 9793 Oct, [place] [address] 75563- 2611 Oct, PTSD (post-traumatic stress disorder) F43.10 and Tobacco dependency F17.200 [place] [address] 12814- 0258 Oct, [place] [address] 14469- 2638 14 Oct, 2017 Other dorsalgia M54.89 [place] [address] 47935- 9041 Oct, Anorexia R63.0 [facility], [place] [address] [id number] [place] [address] 04994- 9703 September, PTSD (post-traumatic stress disorder) F43.10 [place] [address] 78546- 7637 September, Low TSH level R94.6 [place] [address] 64791- 0242 September, Other dorsalgia M54.89 [place] [address] 60681- 6396 September, Annual physical exam Z00.00 and Migraine without aura and without status migrainosus, not intractable G43.009 [place] [address] 30603- 5218 September, Abnormal TSH R94.6 and Dysfunction of left eustachian tube H69.82 [facility], [place] [address] 86370- 6921 Aug, [facility], [place] [address] 89880- 0626 Aug, Anorexia R63.0 [facility] [address] [id number] Aug, Dental examination Z01.20 and Xerostomia K11.7 [facility], [place] [address] 31384- 6619 Aug, Neuropathy G62.9 [facility], [place] [address] 78154- 6084 Aug, [place] [address] 695559- 6148 Aug, Other dorsalgia M54.89 [place] [address] 52885- 8586 16 Apr, 2018 Type 2 diabetes mellitus with diabetic autonomic (poly) neuropathy E11.43 ; Diabetic polyneuropathy associated with type 2 diabetes mellitus E11.42 ; Bronchitis J40 ; Gastroparesis K31.84 and Reactive depression F32.9 [facility], [place] [id number] [place] [address] 65299 2546 Aug, PTSD (post-traumatic stress disorder) F43.10 [facility], [place] [address] 29630 2546 Aug, Other dorsalgia M54.89 and Anorexia R63.0 [facility], [place] [address] 48385 2546 Jul, [facility], [place] [address] 35965 2546 Jul, Other dorsalgia M54.89 [facility], [place] [address] 01933 2546 Jul, [facility], [place] [address] 26883 2546 Jul, [facility], [place] [address] 68619 2546 Jul, PTSD (post-traumatic stress disorder) F43.10 [facility], [place] [address] [place] [id number] [place] [address] 96658 2546 Jul, [facility], [place] [address] 95505 2546 Jul, [facility], [place] [address] [id number] [place] [address] 52656 2546 Jul, [facility], [place] [address] 51997 2546 Jul, Anorexia R63.0 [facility], [place] [address] [id number] [place] [address] 65838 2546 Jun, [facility], [place] [address] 80886- 6385 Jun, Vaginal discharge N89.8 ; Visit for gynecologic examination Z01.419 and Pelvic pressure in female R10.2 [facility], [place] [address] 43047- 1736 Jun, [facility], [place] [address] 35190- 5383 Jun, Other dorsalgia M54.89 [facility], [place] [address] 22813- 7615 Jun, [facility], [place] [address] 87531- 6637 Jun, [facility], [place] [address] 74317- 5724 Jun, [facility], [place] [address] 66404- 9732 May, Back pain M54.9 [facility], [place] [address] 15762- 7141 May, Anorexia R63.0 [facility], [place] [address] 21202- 2352 May, Other dorsalgia M54.89 [facility], [place] [address] 52255- 6521 May, [facility], [place] [address] 39389- 4437 May, Bronchitis J40 [facility], [place] [address] 35160- 0733 May, Type 2 diabetes mellitus with diabetic autonomic (poly) neuropathy E11.43 ; assisted current use of insulin Z79.4 ; Back pain M54.9 and Neuropathy G62.9 [facility], [place] [address] [id number] [place] [address] 59506- 7314 May, Left breast mass N63.20 [place] [address] [place] [id number] [place] [address] 53722- 0971 May, [facility], [place] [id number] [place] [address] 63708- 9910 Apr, Other dorsalgia M54.89 [facility], [place] [address] [id number] [place] [address] 04711 2546 Apr, Anorexia R63.0 [facility], [place] [address] [id number] [place] [address] 48229 2546 Apr, Anorexia R63.0 [facility], [place] [id number] [place] [address] 95490- 5115 Apr, Mass of left breast N63.20 [facility], [place] [address] [id number] [place] [address] 42253- 3768 Apr, [facility], [place] [address] 29321- 5888 Apr, [facility], [place] [id number] [place] [address] 73934- 9562 Apr, Diarrhea of presumed infectious origin A09 [facility], [place] [address] [id number] [place] [address] 96052- 254 Apr, Encounter for immunization Z23 [facility], [place] [id number] [place] [address] 95950- 4468 Apr, [facility], [place] [address] [id number] [place] [address] 27327 2542 Mar, Other dorsalgia M54.89 [facility], [place] [id number] [place] [address] 38577- 7966 Mar, [facility], [place] [address] [id number] [place] [address] 39301- 6456 Mar, [facility], [place] [id number] [place] [address] 44781- 4836 Mar, Anorexia R63.0 [facility], [place] [address] [id number] [place] [address] 00745- 2780 Mar, [facility], [place] [address] [id number] [place] [address] 42664- 9614 Mar, Other dorsalgia M54.89 [facility], [place] [address] [id number] [place] [address] 77677- 5082 Mar, [facility], [place] [address] 58014- 1490 Mar, Encounter for immunization Z23 [facility], [place] [address] 56658- 2874 Feb, Anorexia R63.0 [facility], [place] [address] [place] [id number] [place] [address] 89489- 2781 Feb, Diabetes E11.9 [facility], [place] [address] 41968- 7153 Feb, Back pain M54.9 and Diabetes E11.9 [facility], [place] [address] [place] [id number] [place] [address] 62728- 2821 Feb, Diabetes E11.9 [facility], [place] [address] [place] [id number] [place] [address] 07331- 1396 Feb, Neuropathy G62.9 [facility], [place] [address] [place] [id number] [place] [address] 11693- 3128 Feb, Encounter for immunization Z23 ; Epigastric pain R10.13 ; Weight loss, abnormal R63.4 and Neuropathy G62.9 [facility] [address] [place] [id number] [place] [address] [id number] Feb, [facility], [place] [address] [place] [id number] [place] [address] 25578- 4902 Feb, [facility], [place] [id number] [place] [address] 59676- 1977 Feb, Intractable vomiting with nausea, unspecified vomiting type R11.2 [facility] [address] [place] [id number] [place] [address] 54421 -9208 Feb, Chronic nausea R11.0 [facility], [place] [address] [place] [id number] [place] [address] 57739- 6686 Feb, Other dorsalgia M54.89 [facility], [place] [address] [place] [id number] [place] [address] 86782- 5136 Jan, [facility], [place] [address] 83149 2545 Jan, [facility], [place] [address] [place] [id number] [place] [address] 62234- 5518 Jan, [facility], [place] [address] [id number] [place] [address] 58197- 1270 Jan, [facility], [place] [id number] [place] [address] 60633- 8842 Jan, Asthma exacerbation J45.901 ; Bronchitis J40 and Neuropathy G62.9 [facility], [place] [id number] [place] [address] 56610- 2674 06 Jan, 2017 Anorexia R63.0 [facility], [place] [address] [place] [id number] [place] [address] 95372- 4054 Jan, Other dorsalgia M54.89 [facility], [place] [address] [id number] [place] [address] 29391- 0190 Dec, [facility], [place] [id number] [place] [address] 05725- 5037 Dec, [facility], [place] [id number] [place] [address] 80061- 7780 Dec, Anorexia R63.0 [facility], [place] [address] [place] [id number] [place] [address] 93551- 3151 Dec, Primary insomnia F51.01 [facility], [place] [id number] [place] [address] 68569- 9740 Dec, Other dorsalgia M54.89 [facility], [place] [address] [address]- 4556 Dec, [facility], [place] [address] [id number] [place] [address] 44651- 6037 Nov, [facility], [place] [address] [id number] [place] [address] 74941- 2615 Nov, [facility], [place] [id number] [place] [address] 46392- 7008 Nov, [facility], [place] [address] [id number] [place] [address] 92097- 2515 Nov, History of colon polyps Z86.010 [facility], [place] [address] [place] [id number] [place] [address] 55595- 0699 Nov, Weight loss R63.4 ; Nausea and vomiting, intractability of vomiting not specified, unspecified vomiting type R11.2 and Abnormal LFTs R79.89 [facility], [place] [address] [place] [id number] [place] [address] 61460- 2668 Nov, [facility], [place] [id number] [place] [address] 58076- 8151 Nov, Neuropathy G62.9 and Pain in right knee M25.561 [facility], [place] [address] [place] [id number] [place] [address] 24086- 0837 Nov, Back pain M54.9 [facility], [place] [id number] [place] [address] 44348- 2349 Nov, [facility], [place] [id number] [place] [address] 25602- 0254 Nov, Bronchitis J40 [facility], [place] [id number] [place] [address] 46855- 1488 Nov, Weight loss R63.4 [facility], [place] [id number] [place] [address] 49150- 2923 Oct, Back pain M54.9 [facility], [place] [address] [id number] [place] [address] 73876- 3458 16 Oct, 2016 [facility], [place] [address] [id number] [place] [address] 85297- 1577 14 Oct, 2016 Back pain M54.9 [facility], [place] [id number] [place] [address] [phone]- [phone] 13 Oct, 2016 Type 2 diabetes mellitus without complications E11.9 and Bronchitis J40 [facility], [place] [id number] [place] [address] [phone]- [phone] Oct, [facility], [place] [id number] [place] [address] [phone]- 3703 Oct, [facility], [place] [id number] [place] [address] 28042- 7415 September, Gastroparesis K31.84 ; Type 2 diabetes mellitus with diabetic autonomic (poly)neuropathy E11.43 and Neuropathy G62.9 [facility], [place] [id number] [place] [address] 27595- 9084 September, Other dorsalgia M54.89 [facility], [place] [id number] [place] [address] 44270- 2129 September, [facility], [place] [id number] [place] [address] 61273- 4406 September, [facility], [place] [id number] [place] [address] 70507- 9172 Aug, Gastroparesis K31.84 and Radicular leg pain M54.10 [facility], [place] [id number] [place] [address] 36550- 4648 Aug, Anorexia R63.0 [facility], [place] [address] 96540- 8104 Aug, Bronchitis J40 [facility], [place] [id number] [place] [address] 67743- 2754 Aug, Back pain M54.9 [facility], [place] [id number] [place] [address] 34872- 0963 Aug, Routine gynecological examination Z01.419 ; Routine screening for STI (sexually transmitted infection) Z11.3 and Yeast infection of the vagina B37.3 [place] [id number] [place] [address] 03029- 1657 Jul, Other dorsalgia M54.89 [place] [address] 75911- 6712 Jul, Diabetes E11.9 and Gastroparesis K31.[address] 39865- 1232 Jun, [place] [address] 42465- 4651 Jun, Back pain M54.[address] 03627- 1461 Jun, Neuropathy G62.9 [facility] [address] [id number] Jun, 2016 Encounter for dental examination Z01.20 [place] [id number] [place] [address] 71122- 3300 Jun, Gastroparesis 536.3 and Anorexia R63.0 [id number] [place] [address] 09485- 9270 May, Other dorsalgia M54.89 [place] [id number] [place] [address] 99327- 2047 May, Periumbilical abdominal pain R10.33 ; Weight loss R63.4 and Gastroparesis K31.84 [place] [id number] [place] [address] 79303- 1602 May, Back pain M54.9 [place] [id number] [place] [address] 96093- 1032 Apr, Anorexia R63.0 [facility], [place] [id number] [place] [address] 29539 2546 Apr, Anorexia R63.0 [facility], [place] [id number] [place] [address] 58499- 2546 Apr, Back pain M54.9 [facility], [place] [id number] [place] [address] 16610 2546 15 Apr, 2016 Back pain M54.9 [facility], [place] [id number] [place] [address] [id number] 2546 Apr, [facility], [place] [id number] [place] [address] 14089 2546 Apr, Bronchitis J40 and Neuropathy G62.9 [facility], [place] [id number] [place] [address] 75618 2546 Apr, Neuropathy G62.9 [facility], [place] [id number] [place] [address] 11525 2546 Apr, [facility], [place] [id number] [place] [address] 53093 2546 Apr, Back pain M54.9 [facility], [place] [id number] [place] [address] 43362 2546 Mar, Type 2 diabetes mellitus with diabetic autonomic (poly) neuropathy E11.43 [facility], [place] [id number] [place] [address] 86856 2546 Mar, Type 2 diabetes mellitus without complications E11.9 [facility], [place] [id number] [place] [address] 80282 2546 Mar, Neuropathy G62.9 [facility], [place] [id number] [place] [address] 32583 2546 Mar, [facility], [place] [id number] [place] [address] 24318 2546 Mar, Breast cancer screening Z12.39 [facility], [place] [id number] [place] [address] 14625- 3297 Mar, Other dorsalgia M54.89 [facility], [place] [address] 41945- 4230 Feb, [facility], [place] [id number] [place] [address] 39763- 4983 30 Jan, 2016 Neuropathy G62.9 ; Type 2 diabetes mellitus with diabetic autonomic (poly)neuropathy E11.43 ; Uncomplicated asthma, unspecified asthma severity J45.909 and Encounter for immunization Z23 [facility], [place] [id number] [place] [address] 18327- 3730 Jan, [facility], [place] [address] 40858- 6488 Jan, [facility], [place] [id number] [place] [address] 50775- 8067 Dec, [facility], [place] [id number] [place] [address] 86161- 8172 Dec, [facility], [place] [id number] [place] [address] 18603- 1055 Nov, [facility], [place] [address] 11475- 5644 Nov, Back pain M54.9 [facility], [place] [address] 78767- 3923 Nov, Neuropathy G62.9 ; Mixed hyperlipidemia E78.2 ; Type 2 diabetes mellitus with diabetic autonomic (poly)neuropathy E11.43 and assisted current use of insulin Z79.4 [facility], [place] [id number] [place] [address] 82625- 7887 Oct, [facility], [place] [id number] [place] [address] 25308- 4539 Oct, Other dorsalgia M54.89 [facility], [place] [address] 84548- 9139 September, Primary insomnia F51.01 [facility], [place] [id number] [place] [address] 31611- 8259 September, [facility], [place] [id number] [place] [address] 26091- 9587 Aug, Other dorsalgia M54.89 [facility], [place] [address] 93536- 8216 Jul, [facility], [place] [id number] [place] [address] 66766- 2520 Jul, Other dorsalgia M54.89 [facility], [place] [address] 51755- 0896 Jul, Diabetes E11.9 ; Back pain M54.9 ; Neuropathy G62.9 and Gastroparesis K31.84 [facility], [place] [address] 94531- 1236 Jun, [facility], [place] [id number] [place] [address] 45484- 1066 Jun, Other dorsalgia M54.89 [facility], [place] [id number] [place] [address] 34176- 1142 May, [facility], [place] [id number] [place] [address] 31066- 3225 May, Radicular leg pain M54.10 and Other dorsalgia M54.89 [facility], [place] [id number] [place] [address] 31836- 9301 Apr, [facility], [place] [id number] [place] [address] 69062- 3254 Mar, [facility], [place] [id number] [place] [address] 22693- 1545 Mar, [facility], [place] [id number] [place] [address] 86809- 1248 Mar, Radicular leg pain M54.10 [facility], [place] [address] [address] 8457 Feb, [facility], [place] [id number] [place] [address] 48561- 1251 Feb, [facility], [place] [id number] [place] [address] 99493- 3691 Feb, [facility], [place] [id number] [place] [address] 74641- 4779 Jan, [facility], [place] [id number] [place] [address] 10748- 6838 Jan, IBS (irritable bowel syndrome) 564.1 [facility], [place] [id number] [place] [address] 44253- 4005 Jan, [facility], [place] [id number] [place] [address] 86181- 9816 Jan, [facility], [place] [id number] [place] [address] 67086- 0796 Jan, Diabetes mellitus without mention of complication, type II or unspecified type, not stated as uncontrolled 250.00 ; Gastroparesis 536.3 and Hypoacusis 389.9 [facility], [place] [address], [place] [address]- 3112 Jan, [facility], [place] [id number] [place] [address] 47559- 2969 Jan, [facility], [place] [address], [place] [address]- 0595 Dec, [facility], [place] [id number] [place] [address] 97684- 4922 Dec, [facility], [place] [address], [place] [address]- 0309 Dec, [facility], [place] [id number] [place] [address] 31074- 0732 Dec, Back pain 724.5 and Gastroparesis 536.3 [facility], [place] [address] [address]- 4493 Nov, [facility] [address] [id number] Nov, Dental examination V72.2 [facility], [place] [id number] [place] [address] 03110- 1462 Nov, [facility], [place] [id number] [place] [address] 37410- 2739 Nov, [facility], [place] [id number] [place] [address] 89770- 1064 Nov, Depressive disorder, not elsewhere classified 311 and No condition on [place] II V71.09 [facility], [place] [id number] [place] [address] 73572- 6973 Nov, Diabetes 250.00 and Symptomatic menopausal or female climacteric states 627.2 [facility], [place] [address], [place] [address]- 4331 Oct, [facility], [place] [id number] [place] [address] 09239- 5867 Oct, Lumbar strain 847.2 [facility], [place] [address] [address]- 7467 Oct, Gastroparesis 536.3 and Unspecified myalgia and myositis 729.1 [facility], [place] [address], [place] [address]- 2031 Aug, [facility], [place] [address], [place] [address]- 5600 Aug, [facility], [place] [address], [place] [address]- 2900 Jul, [facility], [place] [address], [place] [address]- 3494 Jul, [facility] [place] [facility] [address] [id number] [place] [address]- 6776 Jul, [facility] [place] [facility] [address] [id number] [place] [address]- 6203 Jul, [facility] [place] [facility] [address] [id number] [place] [address]- 6833 Jul, [facility] [place] [facility] [address] [id number] [place] [address]- 7146 Jun, [facility] [place] [facility] [address] [id number] [place] [address]- 8251 Jun, [facility] [place] [facility] [address] [id number] [place] [address]- 9176 Jun, [facility] [place] [facility] [address] [id number] [place] [address]- 2019 May, [facility] [place] [facility] [address] [id number] [place] [address]- 5525 May, [facility] [place] [facility] [address] [id number] [place] [address]- 3827 Mar, [facility] [place] [facility] [address] [id number] [place] [address]- 6105 Mar, [facility] [place] [facility] [address] [id number] [place] [address]- 3339 Mar, [facility] [place] [facility] [address] [id number] [place] [address]- 1518 Mar, [facility] [place] [facility] [address] [id number] [place] [address]- 2099 Mar, [facility] [place] [facility] [address] [id number] [place] [address]- 2871 Mar, [facility] [place] [facility] [address] [id number] [place] [address]- 4447 Feb, [facility] [place] [facility] [address] [id number] [place] [address]- 9644 Feb, [facility] [address] [id number] [place] [address]- 9356 Nov, [facility] [address] [id number] [place] [address]- 7365 Nov, [facility] [address] [id number] [place] [address]- 4213 Nov, [facility] [place] [facility] [address] [id number] [place] [address]- 2344 Oct, [facility] [address] [id number] [place] [address]- 2267 September, [facility] [address] [id number] [place] [address]- 3387 Aug, [facility] [address] [id number] [place] [address]- 8692 Aug, [facility] [address] [id number] [place] [address]- 6177 Aug, [facility] [address] [id number] [place] [address]- 8639 Aug, [facility] [place] [facility] [address] [id number] [place] [address]- 7965 Aug, [facility] [address] [id number] [place] [address]- 1786 Aug, [facility] [place] [facility] [address] [id number] [place] [address]- 5163 Aug, [facility] [place] [facility] [address] [id number] [place] [address]- 3878 Aug, [facility] [place] [facility] [address] [id number] [place] 6118 Jul, [facility] [place] [facility] [address] [id number] [place] [address]- 5687 Jul, [facility] [place] [facility] [address] [id number] [address]- 5769 12 Jun, 2012 [facility], [place] [address] [place] [address]- 0932 Jun, [facility], [place] [address], [place] [address]- 4082 Jun, [facility], [place] [address], [place] [address]- 0915 08 Jun, 2012 [facility], [place] [address] [place] [address]- 9614 Jun, [facility], [place] [id number] [place] [address] 09874- 6978 Jun, [facility], [place] [address], [place] [address]- 7920 Jun, [facility], [place] [address], [place] [address]- 9608 May, [facility], [place] [address], [place] [address]- 9977 May, [facility], [place] [address] [place] [address]- 6028 May, [facility], [place] [address], [place] [address]- 4842 May, [facility], [place] [address], [place] [address]- 7917 Mar, [facility], [place] [id number] [address]- 2974 Mar, [facility], [place] [address] [place] [address]- 9842 Jan, IMMUNIZATIONS No Known Immunizations SOCIAL HISTORY [...] vomitting-[facility] 03/05/17 Hospitalization History hospital stay at [facility] for stomach issues 2016
--- OUTSIDE RECORDS SUMMARY | 2018-05-04 15:31 | XMS REPORT ---
Author Author HORACE HIGGINS [facility] Address [address] [place] [address] Care Team Providers Care Climatology Professor Name Role Phone HORACE HIGGINS Unavailable PROBLEMS Type Condition ICD9-CM Code CSS48-CA Code Onset Dates Condition Status SNOMED Code Problem Asthma exacerbation J45.901 Active 588260012 Problem Diabetic polyneuropathy associated with type 2 diabetes mellitus E11.42 Active 31155835 Problem Reactive depression F32.9 Active 21495942 Problem Other chronic pain G89.29 Active 47502081 Problem Neuropathy G62.9 Active 357081876 Problem Irritable bowel syndrome with constipation K58.1 Active 551980916 Problem Back pain M54.9 Active 749118091 Problem Low TSH level R94.6 Active 233878681 Problem Migraine without aura and without status migrainosus, not intractable G43.009 Active 385880726 Problem PTSD (post-traumatic stress disorder) F43.10 Active 73186857 Problem Tobacco dependency F17.200 Active 65597627 Problem Annual physical exam Z00.00 Active 798800504 Problem Mixed hyperlipidemia E78.2 Active 303569081 Problem Type 2 diabetes mellitus with diabetic autonomic (poly)neuropathy E11.43 Active 48277831 Problem Diabetes E11.9 Active 05621781 Problem Gastroparesis K31.84 Active 394044015 Problem Anorexia R63.0 Active 30596473 Problem Weight loss R63.4 Active 943705818 Problem 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 [id number] [place] [address] May, [facility] [address], [place] [address] Apr, [facility] [id number] [place] [address] 65774- 5339 Apr, [facility] [id number] [place] [address] 00100- 5612 Mar, [facility] [id number] [place] [address] 54758- 2200 Mar, [facility] [id number] [place] [address] 34162- 5730 Mar, Vaginal discharge N89.8 [facility] [id number] [place] [address] 42542- 6373 Mar, PTSD (post-traumatic stress disorder) F43.10 [facility] [id number] [place] [address] 07539- 2101 Mar, [facility] [id number] [place] [address] 71130- 8133 Feb, LLQ pain R10.32 and Other dorsalgia M54.89 [facility] [id number] [place] [address] 09456- 8867 Feb, [facility] [id number] [place] [address] 71079- 5489 Feb, [facility] [address] [place] [address] 47578- 6660 Feb, PTSD (post-traumatic stress disorder) F43.10 [facility] [address] [place] [address] 65600- 5165 Feb, PTSD (post-traumatic stress disorder) F43.10 [facility] [address] [place] [address] 62463- 2986 Feb, Pain in left shoulder M25.512 and Other chronic pain G89.29 [facility] [id number] [place] [address] 37685- 2182 Feb, LLQ pain R10.32 and Other dorsalgia M54.89 [facility] [address] 10131- 0817 Feb, [facility] [address] 49691- 2440 Feb, Right lower quadrant abdominal pain R10.31 ; Pain in left shoulder M25.512 ; Other chronic pain G89.29 and Encounter for immunization Z23 [facility] [address] 10459- 2519 Feb, [facility] [address] 99185- 1065 25 Jan, 2018 Dysfunction of left eustachian tube H69.82 [facility] [address] 67748- 8954 24 Jan, 2018 [facility] [address] 34699- 5796 Jan, [facility] [address] 38869- 6056 Jan, [facility] [address] 99141- 0784 Jan, [facility] [address] 15677- 9582 Jan, Left upper arm pain M79.622 [facility] [address] 41970- 5682 Jan, [facility] [address] 87456- 8099 18 Jan, 2018 PTSD (post-traumatic stress disorder) F43.10 and Tobacco dependency F17.200 [facility] [address] 61062- 8108 10 Jan, 2018 Back pain M54.9 ; Type 2 diabetes mellitus with diabetic autonomic (poly)neuropathy E11.43 ; Neuropathy G62.9 ; Irritable bowel syndrome with constipation K58.1 ; Sprain of other part of left shoulder region, initial encounter S43.492A and Dysfunction of left eustachian tube H69.82 [facility] [address] 59742- 9196 Jan, [place] [address] 23790- 9721 Jan, Neuropathy G62.9 ; LLQ pain R10.32 and Other dorsalgia M54.89 [place] [address] 20284- 2750 Jan, [place] [address] 83776- 0772 Jan, [place] [address] 51335- 2319 Dec, Right upper quadrant abdominal pain R10.11 [place] [address] 71741- 9322 Dec, PTSD (post-traumatic stress disorder) F43.10 [place] [address] 07149- 9027 Dec, LLQ pain R10.32 [place] [address] 93144- 0796 Dec, Other dorsalgia M54.89 [place] [address] 29181- 9047 Dec, Neuropathy G62.9 [place] [address] 58610- 5814 Dec, [place] [address] 18352- 2252 Nov, Irritable bowel syndrome with constipation K58.1 ; Uncomplicated asthma, unspecified asthma severity J45.909 and Type 2 diabetes mellitus with diabetic autonomic (poly)neuropathy E11.43 [facility] [address] [place] [address] [id number] Nov, Dental examination Z01.20 [facility] [address] 49670- 8356 Nov, Other dorsalgia M54.89 [facility] [id number] [place] [address] 07926- 5671 Nov, LLQ pain R10.32 ; Low TSH level R94.6 and Gastroparesis K31.84 [facility] [id number] [place] [address] 75406- 7114 Nov, Anorexia R63.0 [place] [address] 86892- 4177 Nov, Asthma exacerbation J45.901 [place] [address] 06420- 8850 Oct, PTSD (post-traumatic stress disorder) F43.10 [facility] [id number] [place] [address] 27411- 9856 Oct, [facility] [id number] [place] [address] 72149- 8476 Oct, PTSD (post-traumatic stress disorder) F43.10 and Tobacco dependency F17.200 [facility] [id number] [place] [address] 37065- 8235 Oct, [facility] [id number] [place] [address] 32393- 8555 14 Oct, 2017 Other dorsalgia M54.89 [facility] [address] 10840- 9545 04 Oct, 2017 Anorexia R63.0 [facility] [id number] [place] [address] 62691- 8481 September, PTSD (post-traumatic stress disorder) F43.10 [facility] [address] 53557- 7678 September, Low TSH level R94.6 [place] [address] 663471- 6164 September, Other dorsalgia M54.89 [place] [address] 11899- 0994 September, Annual physical exam Z00.00 and Migraine without aura and without status migrainosus, not intractable G43.009 [place] [address] 47319- 1248 September, Abnormal TSH R94.6 and Dysfunction of left eustachian tube H69.82 [place] [address] [place] [id number]- 3079 Aug, [place] [address] 57963 8333 Aug, Anorexia R63.0 [facility] [address] [id number] Aug, Dental examination Z01.20 and Xerostomia K11.7 [place] [address] 47392- 0198 Aug, Neuropathy G62.9 [place] [address] 82350- 7108 Aug, [place] [address] 28156- 1320 Aug, Other dorsalgia M54.89 [place] [address] 35719- 9003 Aug, Type 2 diabetes mellitus with diabetic autonomic (poly) neuropathy E11.43 ; Diabetic polyneuropathy associated with type 2 diabetes mellitus E11.42 ; Bronchitis J40 ; Gastroparesis K31.84 and Reactive depression F32.9 [place] [address] 74290- 6630 Aug, PTSD (post-traumatic stress disorder) F43.10 [facility] [id number] [place] [address] 54637 2546 Aug, Other dorsalgia M54.89 and Anorexia R63.0 [facility] [id number] [place] [address] 78339 2546 Jul, [facility] [address] 78481 2546 Jul, Other dorsalgia M54.89 [facility] [id number] [place] [address] 11110 2546 Jul, [facility] [id number] [place] [address] 72568 2546 Jul, [facility] [id number] [place] [address] 99543 2546 Jul, PTSD (post-traumatic stress disorder) F43.10 [facility] [id number] [place] [address] 50885 2546 Jul, [facility] [address] 34218 2546 Jul, [facility] [id number] [place] [address] 22507 2546 Jul, [facility] [id number] [place] [address] 63653 2546 Jul, Anorexia R63.0 [facility] [id number] [place] [address] 52464 2546 Jun, [facility] [id number] [place] [address] 09315 2546 Jun, Vaginal discharge N89.8 ; Visit for gynecologic examination Z01.419 and Pelvic pressure in female R10.2 [facility] [id number] [place] [address] 35241 2546 Jun, [facility] [id number] [place] [address] 78684- 8626 Jun, Other dorsalgia M54.89 [facility] [address] 21257- 1109 Jun, [facility] [address] 44371- 1661 Jun, [facility] [address] 82094- 9410 Jun, [facility] [address] 60506- 0237 May, Back pain M54.9 [facility] [address] 86919- 7860 May, Anorexia R63.0 [facility] [address] 28267- 7028 May, Other dorsalgia M54.89 [facility] [id number] [place] [address] 93641- 3001 May, [facility] [address] 39422- 7255 May, Bronchitis J40 [facility] [id number] [place] [address] 80119- 0801 May, Type 2 diabetes mellitus with diabetic autonomic (poly) neuropathy E11.43 ; [facility] current use of insulin Z79.4 ; Back pain M54.9 and Neuropathy G62.9 [facility] [id number] [place] [address] 78004- 4171 May, Left breast mass N63.20 [facility] [address] 29078- 5121 May, [facility] [id number] [place] [address] 06449- 2861 Apr, Other dorsalgia M54.89 [facility] [id number] [place] [address] 47927- 8506 Apr, Anorexia R63.0 [facility] [address] 36429- 4476 Apr, Anorexia R63.0 [facility] [id number] [place] [address] 49990 2546 Apr, Mass of left breast N63.20 [facility] [id number] [place] [address] 74603 2545 Apr, [facility] [id number] [place] [address] 18640- 9366 Apr, [facility] [id number] [place] [address] 96307- 7639 Apr, Diarrhea of presumed infectious origin A09 [facility] [address] 92425- 0480 Apr, Encounter for immunization Z23 [facility] [id number] [place] [address] 20858- 9551 Apr, [facility] [id number] [place] [address] 31984- 7700 Mar, Other dorsalgia M54.89 [facility] [id number] [place] [address] 97026- 5359 Mar, [facility] [id number] [place] [address] 55369 2549 Mar, [facility] [id number] [place] [address] 21535 2542 Mar, Anorexia R63.0 [facility] [id number] [place] [address] 47403- 2546 Mar, [facility] [id number] [place] [address] 73734 2546 Mar, Other dorsalgia M54.89 [facility] [id number] [place] [address] 44382- 2276 Mar, [facility] [id number] [place] [address] 68855- 2857 Mar, Encounter for immunization Z23 [facility] [id number] [place] [address] 32170- 5122 Feb, Anorexia R63.0 [facility] [address] 49538- 7354 Feb, Diabetes E11.9 [facility] [address] 63346- 6340 Feb, Back pain M54.9 and Diabetes E11.9 [facility] [id number] [place] [address] 47147- 2762 Feb, Diabetes E11.9 [facility] [address] 63287- 4376 Feb, Neuropathy G62.9 [facility] [id number] [place] [address] 83720- 3025 Feb, Encounter for immunization Z23 ; Epigastric pain R10.13 ; Weight loss, abnormal R63.4 and Neuropathy G62.9 [facility] [id number] [place] [address] [id number] Feb, [facility] [id number] [place] [address] 01512- 7202 Feb, [facility] [id number] [place] [address] 99523- 9910 Feb, Intractable vomiting with nausea, unspecified vomiting type R11.2 [facility] [id number] [place] [address] 02090 -6973 Feb, Chronic nausea R11.0 [facility] [id number] [place] [address] 18873- 5291 Feb, Other dorsalgia M54.89 [facility] [address], [place] [address] 2546 Jan, [facility] [id number] [place] [address] 65361 2546 Jan, [facility] [id number] [place] [address] 21780 2546 Jan, [facility] [id number] [place] [address] 38143 2546 Jan, [facility] [id number] [place] [address] 32339 2546 08 Jan, 2017 Asthma exacerbation J45.901 ; Bronchitis J40 and Neuropathy G62.9 [facility] [id number] [place] [address] 37231- 3496 Jan, Anorexia R63.0 [facility] [id number] [place] [address] 54874- 4796 Jan, Other dorsalgia M54.89 [facility] [id number] [place] [address] 85455- 1406 Dec, [facility] [id number] [place] [address] 14951- 9385 Dec, [facility] [address] [place] [address] 65344- 1065 Dec, Anorexia R63.0 [facility] [address] [place] [address] 43983 2546 Dec, Primary insomnia F51.01 [facility] [address] [place] [address] 15469 2546 Dec, Other dorsalgia M54.89 [facility] [address] [place] [address] 39785 2546 Dec, [facility] [address] [place] [address] 85034 2546 Nov, [facility] [id number] [place] [address] 06476- 9707 Nov, [facility] [id number] [place] [address] 43303- 8735 Nov, [facility] [id number] [place] [address] 57794- 9399 Nov, History of colon polyps Z86.010 [facility] [address] 72992- 7051 Nov, Weight loss R63.4 ; Nausea and vomiting, intractability of vomiting not specified, unspecified vomiting type R11.2 and Abnormal LFTs R79.89 [facility] [id number] [place] [address] 81660- 1672 Nov, [facility] [id number] [place] [address] 75982- 1450 Nov, Neuropathy G62.9 and Pain in right knee M25.561 [facility] [id number] [place] [address] 55019- 2621 Nov, Back pain M54.9 [facility] [id number] [place] [address] 16370- 6391 Nov, [facility] [id number] [place] [address] 96570- 3451 Nov, Bronchitis J40 [facility] [id number] [place] [address] 61122- 4816 Nov, Weight loss R63.4 [facility] [id number] [place] [address] 22919- 1663 Oct, Back pain M54.9 [facility] [id number] [place] [address] 78612- 2198 Oct, [facility] [id number] [place] [address] 15207- 0239 14 Oct, 2016 Back pain M54.9 [facility] [id number] [place] [address] 33540- 6770 Oct, Type 2 diabetes mellitus without complications E11.9 and Bronchitis J40 [facility] [id number] [place] [address] 83353- 6614 Oct, [facility] [id number] [place] [address] 64375- 3477 Oct, [place] [id number] [place] [address] 12022- 5610 September, Gastroparesis K31.84 ; Type 2 diabetes mellitus with diabetic autonomic (poly)neuropathy E11.43 and Neuropathy G62.9 [place] [address] 04881- 5543 September, Other dorsalgia M54.89 [place] [id number] [place] [address] 69940- 7251 September, [place] [id number] [place] [address] 80280- 9478 September, [place] [id number] [place] [address] 73717- 2319 Aug, Gastroparesis K31.84 and Radicular leg pain M54.10 [place] [id number] [place] [address] 69996- 6245 Aug, Anorexia R63.0 [place] [id number] [place] [address] 94433- 4641 Aug, Bronchitis J40 [place] [id number] [place] [address] 85381- 1273 Aug, Back pain M54.9 [place] [id number] [place] [address] 12225- 3485 Aug, Routine gynecological examination Z01.419 ; Routine screening for STI (sexually transmitted infection) Z11.3 and Yeast infection of the vagina B37.3 [place] [address] [place] [address]- 7949 Jul, Other dorsalgia M54.89 [facility] [address] 95433- 3953 Jul, Diabetes E11.9 and Gastroparesis K31.84 [facility] [address] 40508- 0335 Jun, [facility] [address] 62820- 2219 Jun, Back pain M54.9 [facility] [address] 97735- 2539 Jun, Neuropathy G62.9 [facility] [address] [id number] Jun, 2016 Encounter for dental examination Z01.20 [facility] [address] 21168- 1385 Jun, Gastroparesis 536.3 and Anorexia R63.0 [facility] [address] 7[address] May, Other dorsalgia M54.89 [facility] [address] [address] May, Periumbilical abdominal pain R10.33 ; Weight loss R63.4 and Gastroparesis K31.84 [facility] [id number] [place] [address] May, Back pain M54.9 [facility] [address] [address] Apr, Anorexia R63.0 [facility] [address] [address] Apr, Anorexia R63.0 [facility] [address] [address] Apr, Back pain M54.9 [facility] [id number] [place] [address] Apr, Back pain M54.9 [facility] [address] [address] Apr, [facility] [address] [address] Apr, Bronchitis J40 and Neuropathy G62.9 [facility] [address] [address] Apr, Neuropathy G62.9 [facility] [address] [address] Apr, [facility] [address] [address] Apr, Back pain M54.9 [facility] [address] [address] Mar, Type 2 diabetes mellitus with diabetic autonomic (poly) neuropathy E11.43 [facility] [address] [address] Mar, Type 2 diabetes mellitus without complications E11.9 [facility] [address] [address] Mar, Neuropathy G62.9 [facility] [address] [address] Mar, [facility] [id number] [place] [address] Mar, Breast cancer screening Z12.39 [facility] [address] [address] Mar, Other dorsalgia M54.89 [facility] [address] [address] Feb, [facility] [id number] [place] [address] 38737- 7486 30 Jan, 2016 Neuropathy G62.9 ; Type 2 diabetes mellitus with diabetic autonomic (poly)neuropathy E11.43 ; Uncomplicated asthma, unspecified asthma severity J45.909 and Encounter for immunization Z23 [facility] [id number] [place] [address] 57856- 0261 09 Jan, 2016 [facility] [address] [address]29- 2955 08 Jan, 2016 [facility] [id number] [place] [address] 05490- 6944 Dec, [facility] [id number] [place] [address] 46076- 0922 Dec, [facility] [id number] [place] [address] 58065- 7670 Nov, [facility] [id number] [place] [address] 72669- 1373 Nov, Back pain M54.9 [address] [id number] [place] [address] 09655- 0832 Nov, Neuropathy G62.9 ; Mixed hyperlipidemia E78.2 ; Type 2 diabetes mellitus with diabetic autonomic (poly)neuropathy E11.43 and 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 [place] [id number] [place] [address] 51537- 7499 Oct, [facility] [id number] [place] [address] 17025- 1807 Oct, Other dorsalgia M54.89 [place] [id number] [place] [address] 39699- 4960 September, Primary insomnia F51.01 [facility] [id number] [place] [address] 88032- 5758 September, [facility] [id number] [place] [address] 38440- 3073 Aug, Other dorsalgia M54.89 [facility] [id number] [place] [address] 00507- 7034 Jul, [facility] [id number] [place] [address] 82162- 4777 Jul, Other dorsalgia M54.89 [facility] [id number] [place] [address] 65832- 0648 Jul, Diabetes E11.9 ; Back pain M54.9 ; Neuropathy G62.9 and Gastroparesis K31.84 [facility] [id number] [place] [address] 64861- 0847 Jun, [facility] [address] 03822- 2240 Jun, Other dorsalgia M54.89 [facility] [address] 67372- 6329 May, [facility] [id number] [place] [address] 16077- 2840 May, Radicular leg pain M54.10 and Other dorsalgia M54.89 [facility] [id number] [place] [address] 84979- 3396 Apr, [facility] [id number] [place] [address] 77960- 4382 Mar, [facility] [id number] [place] [address] 07748- 6009 Mar, [facility] [id number] [place] [address] 72571- 3605 Mar, Radicular leg pain M54.10 [facility] [id number] [place] [address] 36962- 6041 Feb, [facility] [id number] [place] [address] 01735- 0013 Feb, [facility] [address] [address] 6094 Feb, [facility] [id number] [place] [address] 28525- 7086 Jan, [facility] [id number] [place] [address] 53147- 8144 Jan, IBS (irritable bowel syndrome) 564.1 [facility] [id number] [place] [address] 92128- 6892 10 Jan, 2015 [facility] [id number] [place] [address] 75791- 2795 Jan, [facility] [id number] [place] [address] 64851- 4347 Jan, Diabetes mellitus without mention of complication, type II or unspecified type, not stated as uncontrolled 250.00 ; Gastroparesis 536.3 and Hypoacusis 389.9 [facility] [id number] [address] 9554 Jan, [facility] [id number] [place] [address] 91714- 1684 Jan, [facility] [id number] [place] [address] 05573- 1396 Dec, [facility] [id number] [place] [address] 38354- 0347 Dec, [facility] [address], [place] [address]- 6812 Dec, [facility] [id number] [place] [address] 85885- 8125 Dec, Back pain 724.5 and Gastroparesis 536.3 [facility] [address], [place] [address]- 4820 Nov, [facility] [id number] [place] [address] [id number] Nov, Dental examination V72.2 [facility] [address] [address]- 3196 Nov, [facility] [address] 1636 Nov, [facility] [address] 2793 Nov, Depressive disorder, not elsewhere classified 311 and No condition on [place] II V71.09 [facility] [address] [address]- 3194 Nov, Diabetes 250.00 and Symptomatic menopausal or female climacteric states 627.2 [facility] [address] 1036 Oct, [facility] [id number] [place] [address] 56392- 3338 Oct, Lumbar strain 847.2 [facility] [address], [place] [address]- 5896 Oct, Gastroparesis 536.3 and Unspecified myalgia and myositis 729.1 [facility] [address], [place] [address]- 0556 Aug, [facility] [address] [address]- 1996 Aug, [facility] [address], [place] [address]- 7766 Jul, [facility] [address] 8516 Jul, [facility] [address], [place] [address]- 4026 Jul, [facility] [id number] 3536 Jul, [facility] [id number] [place] [address]- 6910 Jul, [facility] [place] [facility] [address] [id number] [place] [address]- 2385 Jun, [facility] [place] [facility] [address] [id number] [place] [address]- 0286 Jun, [facility] [place] [facility] [address] [id number] [place] [address]- 7376 Jun, [facility] [place] [facility] [address] [id number] [place] [address]- 0133 May, [facility] [place] [facility] [address] [id number] [place] [address]- 0006 May, [facility] [place] [facility] [address] [id number] [place] [address]- 5931 Mar, [facility] [place] [facility] [address] [id number] [place] [address]- 7670 Mar, [facility] [place] [facility] [address] [id number] [place] [address]- 7352 Mar, [facility] [place] [facility] [address] [id number] [place] [address]- 5129 Mar, [facility] [place] [facility] [address] [id number] [place] [address]- 6075 Mar, [facility] [place] [facility] [address] [id number] [place] [address]- 2239 Mar, [facility] [place] [facility] [address] [id number] [place] [address]- 4614 Feb, [facility] [place] [facility] [address] [id number] [place] [address]- 6317 Feb, [facility] [place] [facility] [address] [id number] [place] [address]- 0133 Nov, [facility] [place] [facility] [address] [id number] [place] [address]- 2180 Nov, [facility] [address] [id number] [place] [address]- 5471 Nov, [facility] [place] [facility] [address] [id number] [place] [address]- 4053 Oct, [facility] [place] [facility] [address] [id number] [place] [address]- 7622 September, [facility] [place] [facility] [address] [id number] [place] [address]- 9805 Aug, [facility] [address] [id number] [place] [address]- 7276 Aug, [facility] [place] [facility] [address] [id number] [place] [address]- 7434 Aug, [facility] [place] [facility] [address] [id number] [place] [address]- 0644 Aug, [facility] [place] [facility] [address] [id number] [place] [address]- 1749 Aug, [facility] [place] [facility] [address] [id number] [place] [address]- 8550 Aug, [facility] [place] [facility] [address] [id number] [place] [address]- 2023 Aug, [facility] [place] [facility] [address] [id number] [place] [address]- 2939 Aug, [facility] [place] [facility] [address] [id number] [address]- 4084 Jul, [facility] [place] [facility] [address] [id number] [place] [address]- 3655 Jul, [facility] [place] [facility] [address] [id number] [place] [address]- 3995 Jun, [facility] [place] [facility] [address] [id number] [place] [address]- 1842 Jun, [facility] [place] [facility] [id number] [address]- 5393 09 Jun, 2012 [facility] [address], [place] [address]- 3450 08 Jun, 2012 [facility] [address], [place] [address]- 4360 Jun, [facility] [address], [place] [address]- 2876 Jun, [facility] [address], [place] [address]- 3742 Jun, [facility] [id number] [place] [address] 40161- 4322 May, [facility] [address], [place] [address]- 1787 May, [facility] [id number] [place] [address] 17062- 3670 May, [facility] [address], [place] [address]- 0250 May, [facility] [address], [place] [address]- 9917 Mar, [facility] [address], [place] [address]- 8411 Mar, [facility] [id number] [address]- 1106 Jan, IMMUNIZATIONS No Known Immunizations SOCIAL HISTORY [...]
--- OUTSIDE RECORDS SUMMARY | 2018-05-04 15:31 | XMS REPORT ---
Author Author HORACE HIGGINS [facility] Address [address] [place] [address] Care Team Providers Care Electrical Apprentice Name Role Phone HORACE HIGGINS Unavailable PROBLEMS Type Condition ICD9-CM Code ISD93-HA Code Onset Dates Condition Status SNOMED Code Problem Asthma exacerbation J45.901 Active 732200676 Problem Diabetic polyneuropathy associated with type 2 diabetes mellitus E11.42 Active 10269618 Problem Reactive depression F32.9 Active 55233752 Problem Other chronic pain G89.29 Active 79181960 Problem Neuropathy G62.9 Active 463239873 Problem Irritable bowel syndrome with constipation K58.1 Active 885764798 Problem Back pain M54.9 Active 423671209 Problem Low TSH level R94.6 Active 049000171 Problem Migraine without aura and without status migrainosus, not intractable G43.009 Active 509059397 Problem PTSD (post-traumatic stress disorder) F43.10 Active 06942886 Problem Tobacco dependency F17.200 Active 72468117 Problem Annual physical exam Z00.00 Active 623470823 Problem Mixed hyperlipidemia E78.2 Active 333741446 Problem Type 2 diabetes mellitus with diabetic autonomic (poly)neuropathy E11.43 Active 75809673 Problem Diabetes E11.9 Active 80819813 Problem Gastroparesis K31.84 Active 023312302 Problem Anorexia R63.0 Active 94039916 Problem Weight loss R63.4 Active 660818137 Problem 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 Active 822025947 Problem History of colon polyps Z86.010 Active 879784493 Problem Uncomplicated asthma, unspecified asthma severity J45.909 Active 129604475 Problem Primary insomnia F51.01 Active [id number] ALLERGIES No Information ENCOUNTERS Encounter Location Date Diagnosis [facility] [address] [facility] [id number] [place] [address] May, [facility] [address] [address] Apr, [facility] [id number] [place] [address] 34291- 2783 Apr, [facility] [id number] [place] [address] 70938- 3252 Mar, [facility] [id number] [place] [address] 22435- 1064 Mar, [facility] [id number] [place] [address] 02655- 7295 Mar, Vaginal discharge N89.8 [facility] [id number] [place] [address] 91919- 0480 Mar, PTSD (post-traumatic stress disorder) F43.10 [facility] [id number] [place] [address] 40502- 6914 Mar, [facility] [id number] [place] [address] 75003- 7737 Feb, LLQ pain R10.32 and Other dorsalgia M54.89 [facility] [id number] [place] [address] 57548- 5874 Feb, [facility] [id number] [place] [address] 07291- 9733 Feb, [facility] [id number] [place] [address] 34914- 0118 Feb, PTSD (post-traumatic stress disorder) F43.10 [facility] [id number] [place] [address] 73176- 0412 Feb, PTSD (post-traumatic stress disorder) F43.10 [facility] [id number] [place] [address] 80728- 4629 Feb, Pain in left shoulder M25.512 and Other chronic pain G89.29 [facility] [id number] [place] [address] 78762- 1527 Feb, LLQ pain R10.32 and Other dorsalgia M54.89 [facility] [address] 88475- 5989 Feb, [facility] [address] 54638- 2890 Feb, Right lower quadrant abdominal pain R10.31 ; Pain in left shoulder M25.512 ; Other chronic pain G89.29 and Encounter for immunization Z23 [facility] [address] 18990- 5646 Feb, [facility] [address] 15010- 6618 25 Jan, 2018 Dysfunction of left eustachian tube H69.82 [facility] [address] 39406- 1249 24 Jan, 2018 [facility] [address] 33347- 0757 Jan, [facility] [address] 01873- 1161 Jan, [facility] [address] 87043- 9161 Jan, [facility] [address] 51451- 2955 Jan, Left upper arm pain M79.622 [facility] [address] 59528- 1672 Jan, [facility] [address] 00584- 5837 18 Jan, 2018 PTSD (post-traumatic stress disorder) F43.10 and Tobacco dependency F17.200 [facility] [address] 58180- 9387 10 Jan, 2018 Back pain M54.9 ; Type 2 diabetes mellitus with diabetic autonomic (poly)neuropathy E11.43 ; Neuropathy G62.9 ; Irritable bowel syndrome with constipation K58.1 ; Sprain of other part of left shoulder region, initial encounter S43.492A and Dysfunction of left eustachian tube H69.82 [facility] [address] 18974- 3892 Jan, [place] [address] 17982- 3148 Jan, Neuropathy G62.9 ; LLQ pain R10.32 and Other dorsalgia M54.89 [place] [address] 63595- 7376 Jan, [place] [address] 36446- 7302 Jan, [place] [address] 73880- 5020 Dec, Right upper quadrant abdominal pain R10.11 [place] [address] 89661- 4291 Dec, PTSD (post-traumatic stress disorder) F43.10 [place] [address] 91661- 7825 Dec, LLQ pain R10.32 [place] [address] 03358- 8880 Dec, Other dorsalgia M54.89 [place] [address] 24073- 4353 Dec, Neuropathy G62.9 [place] [address] 87316- 9975 Dec, [place] [address] 26877- 0481 Nov, Irritable bowel syndrome with constipation K58.1 ; Uncomplicated asthma, unspecified asthma severity J45.909 and Type 2 diabetes mellitus with diabetic autonomic (poly)neuropathy E11.43 [facility] [id number] [place] [address] [id number] Nov, Dental examination Z01.20 [facility] [address] 19240- 4579 Nov, Other dorsalgia M54.89 [facility] [id number] [place] [address] 19010- 4220 Nov, LLQ pain R10.32 ; Low TSH level R94.6 and Gastroparesis K31.84 [facility] [id number] [place] [address] 64924- 2952 Nov, Anorexia R63.0 [place] [address] 19184- 2829 Nov, Asthma exacerbation J45.901 [place] [address] 21668- 5908 Oct, PTSD (post-traumatic stress disorder) F43.10 [facility] [id number] [place] [address] 71955- 8684 Oct, [facility] [id number] [place] [address] 91625- 2561 Oct, PTSD (post-traumatic stress disorder) F43.10 and Tobacco dependency F17.200 [facility] [id number] [place] [address] 90520- 9675 Oct, [facility] [id number] [place] [address] 64876- 2274 14 Oct, 2017 Other dorsalgia M54.89 [facility] [address] 87817- 9652 04 Oct, 2017 Anorexia R63.0 [facility] [id number] [place] [address] 68462- 9286 September, PTSD (post-traumatic stress disorder) F43.10 [facility] [address] 46047- 0557 September, Low TSH level R94.6 [place] [address] 893819- 1275 September, Other dorsalgia M54.89 [place] [address] 67945- 2249 September, Annual physical exam Z00.00 and Migraine without aura and without status migrainosus, not intractable G43.009 [place] [address] 36638- 2277 September, Abnormal TSH R94.6 and Dysfunction of left eustachian tube H69.82 [place] [address] [place] [id number]- 0546 Aug, [place] [address] 40503 7529 Aug, Anorexia R63.0 [facility] [address] [id number] Aug, Dental examination Z01.20 and Xerostomia K11.7 [place] [address] 82741- 5516 Aug, Neuropathy G62.9 [place] [address] 47264- 0899 Aug, [place] [address] 71002- 0465 Aug, Other dorsalgia M54.89 [place] [address] 43128- 2928 Aug, Type 2 diabetes mellitus with diabetic autonomic (poly) neuropathy E11.43 ; Diabetic polyneuropathy associated with type 2 diabetes mellitus E11.42 ; Bronchitis J40 ; Gastroparesis K31.84 and Reactive depression F32.9 [place] [address] 60190- 0562 Aug, PTSD (post-traumatic stress disorder) F43.10 [facility] [id number] [place] [address] 19828 2546 Aug, Other dorsalgia M54.89 and Anorexia R63.0 [facility] [id number] [place] [address] 79451 2546 Jul, [facility] [address] 23028 2546 Jul, Other dorsalgia M54.89 [facility] [id number] [place] [address] 63539 2546 Jul, [facility] [id number] [place] [address] 28833 2546 Jul, [facility] [id number] [place] [address] 58954 2546 Jul, PTSD (post-traumatic stress disorder) F43.10 [facility] [id number] [place] [address] 31177 2546 Jul, [facility] [address] 54772 2546 Jul, [facility] [id number] [place] [address] 85336 2546 Jul, [facility] [id number] [place] [address] 26259 2546 Jul, Anorexia R63.0 [facility] [id number] [place] [address] 61090 2546 Jun, [facility] [id number] [place] [address] 69110 2546 Jun, Vaginal discharge N89.8 ; Visit for gynecologic examination Z01.419 and Pelvic pressure in female R10.2 [facility] [id number] [place] [address] 19421 2546 Jun, [facility] [id number] [place] [address] 95697- 6237 Jun, Other dorsalgia M54.89 [facility] [address] 46809- 1733 Jun, [facility] [address] 29898- 4848 Jun, [facility] [address] 76144- 9302 Jun, [facility] [address] 79259- 8378 May, Back pain M54.9 [facility] [address] 19654- 8996 May, Anorexia R63.0 [facility] [address] 04670- 2800 May, Other dorsalgia M54.89 [facility] [id number] [place] [address] 33757- 8253 May, [facility] [address] 01611- 2564 May, Bronchitis J40 [facility] [id number] [place] [address] 06506- 6443 May, Type 2 diabetes mellitus with diabetic autonomic (poly) neuropathy E11.43 ; halfway current use of insulin Z79.4 ; Back pain M54.9 and Neuropathy G62.9 [facility] [id number] [place] [address] 69762- 6878 May, Left breast mass N63.20 [facility] [address] 87027- 1011 May, [facility] [id number] [place] [address] 06941- 5264 Apr, Other dorsalgia M54.89 [facility] [id number] [place] [address] 57851- 0356 Apr, Anorexia R63.0 [facility] [address] 63713- 9616 Apr, Anorexia R63.0 [facility] [id number] [place] [address] 77624 2546 Apr, Mass of left breast N63.20 [facility] [id number] [place] [address] 75167 2549 Apr, [facility] [id number] [place] [address] 69685- 4626 Apr, [facility] [id number] [place] [address] 45581- 5535 Apr, Diarrhea of presumed infectious origin A09 [facility] [address] 62728- 0571 Apr, Encounter for immunization Z23 [facility] [id number] [place] [address] 38821- 1096 Apr, [facility] [id number] [place] [address] 46960- 0021 Mar, Other dorsalgia M54.89 [facility] [id number] [place] [address] 59817- 3318 Mar, [facility] [id number] [place] [address] 28177 2544 Mar, [facility] [id number] [place] [address] 96641 2540 Mar, Anorexia R63.0 [facility] [id number] [place] [address] 36012- 2546 Mar, [facility] [id number] [place] [address] 90382 2546 Mar, Other dorsalgia M54.89 [facility] [id number] [place] [address] 24813- 1475 Mar, [facility] [id number] [place] [address] 58603- 0611 Mar, Encounter for immunization Z23 [facility] [id number] [place] [address] 13132- 2683 Feb, Anorexia R63.0 [facility] [address] 90394- 8353 Feb, Diabetes E11.9 [facility] [address] 48583- 4697 Feb, Back pain M54.9 and Diabetes E11.9 [facility] [id number] [place] [address] 95617- 6935 Feb, Diabetes E11.9 [facility] [address] 21500- 9739 Feb, Neuropathy G62.9 [facility] [id number] [place] [address] 86014- 4813 Feb, Encounter for immunization Z23 ; Epigastric pain R10.13 ; Weight loss, abnormal R63.4 and Neuropathy G62.9 [facility] [id number] [place] [address] [id number] Feb, [facility] [id number] [place] [address] 48061- 1633 Feb, [facility] [id number] [place] [address] 74967- 4524 Feb, Intractable vomiting with nausea, unspecified vomiting type R11.2 [facility] [id number] [place] [address] 00196 -4352 Feb, Chronic nausea R11.0 [facility] [id number] [place] [address] 45863- 9138 Feb, Other dorsalgia M54.89 [facility] [address] [address] 2546 Jan, [facility] [id number] [place] [address] 09814 2546 Jan, [facility] [id number] [place] [address] 62734 2546 Jan, [facility] [id number] [place] [address] 46295 2546 Jan, [facility] [id number] [place] [address] 43639 2546 08 Jan, 2017 Asthma exacerbation J45.901 ; Bronchitis J40 and Neuropathy G62.9 [facility] [id number] [place] [address] 92692- 9296 Jan, Anorexia R63.0 [facility] [id number] [place] [address] 07798- 3936 Jan, Other dorsalgia M54.89 [facility] [id number] [place] [address] 63989- 9305 Dec, [facility] [id number] [place] [address] 54313- 9052 Dec, [facility] [id number] [place] [address] 97987- 6135 Dec, Anorexia R63.0 [facility] [id number] [place] [address] 53754 2546 Dec, Primary insomnia F51.01 [facility] [id number] [place] [address] 90973 2546 Dec, Other dorsalgia M54.89 [facility] [id number] [place] [address] 32401 2546 Dec, [facility] [id number] [place] [address] 15389 2546 Nov, [facility] [id number] [place] [address] 25303- 4770 Nov, [facility] [id number] [place] [address] 21143- 7523 Nov, [facility] [id number] [place] [address] 94863- 2470 Nov, History of colon polyps Z86.010 [facility] [address] 38633- 6782 Nov, Weight loss R63.4 ; Nausea and vomiting, intractability of vomiting not specified, unspecified vomiting type R11.2 and Abnormal LFTs R79.89 [facility] [id number] [place] [address] 31045- 1091 Nov, [facility] [id number] [place] [address] 48878- 1351 Nov, Neuropathy G62.9 and Pain in right knee M25.561 [facility] [id number] [place] [address] 16410- 8779 Nov, Back pain M54.9 [facility] [id number] [place] [address] 08995- 9890 Nov, [facility] [id number] [place] [address] 44916- 1523 Nov, Bronchitis J40 [facility] [id number] [place] [address] 79471- 9886 Nov, Weight loss R63.4 [facility] [id number] [place] [address] 85020- 3093 Oct, Back pain M54.9 [facility] [id number] [place] [address] 87036- 2505 Oct, [facility] [id number] [place] [address] 01133- 3122 14 Oct, 2016 Back pain M54.9 [facility] [id number] [place] [address] 64863- 8613 Oct, Type 2 diabetes mellitus without complications E11.9 and Bronchitis J40 [facility] [id number] [place] [address] 84709- 0009 Oct, [facility] [id number] [place] [address] 76947- 7201 Oct, [place] [id number] [place] [address] 42576- 3469 September, Gastroparesis K31.84 ; Type 2 diabetes mellitus with diabetic autonomic (poly)neuropathy E11.43 and Neuropathy G62.9 [place] [address] 32377- 7115 September, Other dorsalgia M54.89 [place] [id number] [place] [address] 46812- 5380 September, [place] [id number] [place] [address] 76584- 0258 September, [place] [id number] [place] [address] 86257- 2656 Aug, Gastroparesis K31.84 and Radicular leg pain M54.10 [place] [id number] [place] [address] 97970- 5830 Aug, Anorexia R63.0 [place] [id number] [place] [address] 53186- 9998 Aug, Bronchitis J40 [place] [id number] [place] [address] 78853- 7394 Aug, Back pain M54.9 [place] [id number] [place] [address] 24576- 5351 Aug, Routine gynecological examination Z01.419 ; Routine screening for STI (sexually transmitted infection) Z11.3 and Yeast infection of the vagina B37.3 [place] [address] [place] [address]- 5892 Jul, Other dorsalgia M54.89 [facility] [address] 70247- 5039 Jul, Diabetes E11.9 and Gastroparesis K31.84 [facility] [address] 86432- 7327 Jun, [facility] [address] 57414- 9610 Jun, Back pain M54.9 [facility] [address] 99017- 5611 Jun, Neuropathy G62.9 [facility] [address] [id number] 02 Jun, 2016 Encounter for dental examination Z01.20 [facility] [address] 92072- 1821 Jun, Gastroparesis 536.3 and Anorexia R63.0 [facility] [address] 26686- 6832 May, Other dorsalgia M54.89 [facility] [address] 14090- 2934 May, Periumbilical abdominal pain R10.33 ; Weight loss R63.4 and Gastroparesis K31.84 [facility] [id number] [place] [id number] May, Back pain M54.9 [facility] [address] [address] Apr, Anorexia R63.0 [facility] [address] [address] Apr, Anorexia R63.0 [facility] [address] [address] Apr, Back pain M54.9 [facility] [id number] [place] [address]- [address] Apr, Back pain M54.9 [facility] [address] [address] Apr, [facility] [address] [address] Apr, Bronchitis J40 and Neuropathy G62.9 [facility] [address] [address] Apr, Neuropathy G62.9 [facility] [address] [address] Apr, [facility] [address] [address] Apr, Back pain M54.9 [facility] [address] [address] Mar, Type 2 diabetes mellitus with diabetic autonomic (poly) neuropathy E11.43 [facility] [address] [address] Mar, Type 2 diabetes mellitus without complications E11.9 [facility] [address] [address] Mar, Neuropathy G62.9 [facility] [address] [address] Mar, [facility] [id number] [place] [id number] Mar, Breast cancer screening Z12.39 [facility] [address] [address] Mar, Other dorsalgia M54.89 [facility] [address] [address] Feb, [facility] [id number] [place] [address] 30 Jan, 2016 Neuropathy G62.9 ; Type 2 diabetes mellitus with diabetic autonomic (poly)neuropathy E11.43 ; Uncomplicated asthma, unspecified asthma severity J45.909 and Encounter for immunization Z23 [facility] [id number] [place] [address] 89608- 1124 09 Jan, 2016 [facility] [address] [address]- 2723 08 Jan, 2016 [facility] [id number] [place] [address] 45501- 1772 Dec, [facility] [id number] [place] [address] 08985- 1846 Dec, [facility] [id number] [place] [address] 92691- 7905 Nov, [facility] [id number] [place] [address] 73517- 2412 Nov, Back pain M54.9 [facility] [id number] [place] [address] 13955- 5662 Nov, Neuropathy G62.9 ; Mixed hyperlipidemia E78.2 ; Type 2 diabetes mellitus with diabetic autonomic (poly)neuropathy E11.43 and 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 [facility] [id number] [place] [address] 95859- 7178 Oct, [facility] [id number] [place] [address] 26587- 9759 Oct, Other dorsalgia M54.89 [facility] [id number] [place] [address] 78856- 1054 September, Primary insomnia F51.01 [facility] [id number] [place] [address] 78633- 9951 September, [facility] [id number] [place] [address] 85136- 2971 Aug, Other dorsalgia M54.89 [facility] [id number] [place] [address] 74406- 4534 Jul, [facility] [id number] [place] [address] 95312- 3500 Jul, Other dorsalgia M54.89 [facility] [id number] [place] [address] 15461- 7418 Jul, Diabetes E11.9 ; Back pain M54.9 ; Neuropathy G62.9 and Gastroparesis K31.84 [facility] [id number] [place] [address] 69400- 8170 Jun, [facility] [address] 45622- 9899 Jun, Other dorsalgia M54.89 [facility] [address] 32684- 9834 May, [facility] [id number] [place] [address] 32618- 7558 May, Radicular leg pain M54.10 and Other dorsalgia M54.89 [facility] [id number] [place] [address] 81715- 0597 Apr, [facility] [id number] [place] [address] 67211- 8736 Mar, [facility] [id number] [place] [address] 86730- 2540 Mar, [facility] [id number] [place] [address] 48691- 7481 Mar, Radicular leg pain M54.10 [facility] [id number] [place] [address] 24764- 2372 Feb, [facility] [id number] [place] [address] 00590- 0296 Feb, [facility] [id number] [address]- 7750 Feb, [facility] [id number] [place] [address] 86207- 1649 Jan, [facility] [id number] [place] [address] 66149- 7619 Jan, IBS (irritable bowel syndrome) 564.1 [facility] [id number] [place] [address] 31620- 5604 10 Jan, 2015 [facility] [id number] [place] [address] 33774- 0412 Jan, [facility] [id number] [place] [address] 03937- 9277 Jan, Diabetes mellitus without mention of complication, type II or unspecified type, not stated as uncontrolled 250.00 ; Gastroparesis 536.3 and Hypoacusis 389.9 [facility] [id number] [address]- 6512 Jan, [facility] [id number] [place] [address] 27060- 9775 Jan, [facility] [id number] [place] [address] 87319- 3817 Dec, [facility] [id number] [place] [address] 36992- 8589 Dec, [facility] [id number] [address]- 7788 Dec, [facility] [id number] [place] [address] 28566- 3560 Dec, Back pain 724.5 and Gastroparesis 536.3 [facility] [id number] [address]- 5757 Nov, [facility] [id number] [place] [address] [id number] Nov, Dental examination V72.2 [facility] [address] [address]- 0057 Nov, [facility] [id number]- 8756 Nov, [facility] [id number] 5047 Nov, Depressive disorder, not elsewhere classified 311 and No condition on Nikols[place] II V71.09 [facility] [address] [address]- 5989 Nov, Diabetes 250.00 and Symptomatic menopausal or female climacteric states 627.2 [facility] [address]- 2036 Oct, [facility] [id number] [place] [address] 27911- 2251 Oct, Lumbar strain 847.2 [facility] [id number] [address]- 6576 Oct, Gastroparesis 536.3 and Unspecified myalgia and myositis 729.1 [facility] [address] [address]- 1326 Aug, [facility] [address] [address]- 0756 Aug, [facility] [address] [address]- 7846 Jul, [facility] [id number]- 2846 Jul, [facility] [address] [address]- 0556 Jul, [facility] [id number]- 1006 Jul, [facility] [id number] [address]- 0387 Jul, [facility] [place] [facility] [address] [id number] [place] [address]- 3738 Jun, [facility] [place] [facility] [address] [id number] [place] [address]- 2176 Jun, [facility] [place] [facility] [address] [id number] [place] [address]- 4396 Jun, [facility] [place] [facility] [address] [id number] [place] [address]- 2150 May, [facility] [place] [facility] [address] [id number] [place] [address]- 9684 May, [facility] [place] [facility] [address] [id number] [place] [address]- 5553 Mar, [facility] [place] [facility] [address] [id number] [place] [address]- 2573 Mar, [facility] [place] [facility] [address] [id number] [place] [address]- 1098 Mar, [facility] [place] [facility] [address] [id number] [place] [address]- 5344 Mar, [facility] [place] [facility] [address] [id number] [place] [address]- 1951 Mar, [facility] [place] [facility] [address] [id number] [place] [address]- 7921 Mar, [facility] [place] [facility] [address] [id number] [place] [address]- 2805 Feb, [facility] [place] [facility] [address] [id number] [place] [address]- 5246 Feb, [facility] [place] [facility] [address] [id number] [place] [address]- 8430 Nov, [facility] [place] [facility] [address] [id number] [place] [address]- 8183 Nov, [facility] [address] [id number] [place] [address]- 0089 Nov, [facility] [place] [facility] [address] [id number] [place] [address]- 4503 Oct, [facility] [place] [facility] [address] [id number] [place] [address]- 6248 September, [facility] [place] [facility] [address] [id number] [place] [address]- 7642 Aug, [facility] [address] [id number] [place] [address]- 8861 Aug, [facility] [place] [facility] [address] [id number] [place] [address]- 1398 Aug, [facility] [place] [facility] [address] [id number] [place] [address]- 7087 Aug, [facility] [place] [facility] [address] [id number] [place] [address]- 5362 Aug, [facility] [place] [facility] [address] [id number] [place] [address]- 3039 Aug, [facility] [place] [facility] [address] [id number] [place] [address]- 5920 Aug, [facility] [place] [facility] [address] [id number] [place] [address]- 7891 Aug, [facility] [place] [facility] [address] [id number] [address]- 9757 Jul, [facility] [place] [facility] [address] [id number] [place] [address]- 8588 Jul, [facility] [place] [facility] [address] [id number] [place] [address]- 5454 Jun, [facility] [place] [facility] [address] [id number] [place] [address]- 6781 Jun, [facility] [place] [facility] [id number] 3382 09 Jun, 2012 [facility] [address]- 4265 Jun, [facility] [address]- 4925 Jun, [facility] [address] [address]- 4346 Jun, [facility] [address] 7225 Jun, [facility] [id number] [place] [address] 57769- 9158 May, [facility] [address] [address]- 8436 May, [facility] [id number] [place] [address] 43470- 0158 May, [facility] [address] [address]- 9225 May, [facility] [address] 6718 Mar, [facility] [address] [address]- 1439 Mar, [facility] [id number] [address]- 2767 Jan, IMMUNIZATIONS No Known Immunizations SOCIAL HISTORY Never Assessed REASON FOR VISIT PLAN OF CARE VITAL SIGNS MEDICATIONS Medication Instructions Dosage Frequency Start Date End Date Duration Status Maxalt 5 mg Orally daily as needed Take 1 tablet when headache begins; repeat in 2 hours if not better. Not to take more than 30 mg daily 33 Active RESULTS No Results PROCEDURES No Known [...] vomitting-[facility] 03/05/17 Hospitalization History hospital stay at [facility] for stomach issues 2016
--- OUTSIDE RECORDS SUMMARY | 2018-05-04 15:32 | XMS REPORT ---
Author Author MELQUIADES BA [facility] Address [address] [place] [address] Care Team Providers Care Piler Name Role Phone MELQUIADES BA Unavailable PROBLEMS Type Condition ICD9-CM Code TVW18-YP Code Onset Dates Condition Status SNOMED Code Problem Asthma exacerbation J45.901 Active 784908170 Problem Diabetic polyneuropathy associated with type 2 diabetes mellitus E11.42 Active 60382505 Problem Reactive depression F32.9 Active 74343342 Problem Other chronic pain G89.29 Active 56645798 Problem Neuropathy G62.9 Active 659632226 Problem Irritable bowel syndrome with constipation K58.1 Active 688807815 Problem Back pain M54.9 Active 142779357 Problem Low TSH level R94.6 Active 916635104 Problem Migraine without aura and without status migrainosus, not intractable G43.009 Active 738028776 Problem PTSD (post-traumatic stress disorder) F43.10 Active 43541055 Problem Tobacco dependency F17.200 Active 30306311 Problem Annual physical exam Z00.00 Active 325278042 Problem Mixed hyperlipidemia E78.2 Active 523849825 Problem Type 2 diabetes mellitus with diabetic autonomic (poly)neuropathy E11.43 Active 82952361 Problem Diabetes E11.9 Active 19953515 Problem Gastroparesis K31.84 Active 599667339 Problem Anorexia R63.0 Active 49452023 Problem Weight loss R63.4 Active 570887793 Problem FCI current use of insulin Z79.4 Active 150202012 Problem History of colon polyps Z86.010 Active 529317541 Problem Uncomplicated asthma, unspecified asthma severity J45.909 Active 081960788 Problem Primary insomnia F51.01 Active 7392991 ALLERGIES No Information ENCOUNTERS Encounter Location Date Diagnosis [facility] [address] [facility] [id number] [address] May, [facility] [address] [address] Apr, [facility] [id number] [place] [address] 35761- 8024 Apr, [facility] [id number] [place] [address] 759238- 7562 Mar, [facility] [id number] [place] [address] 287482- 6169 Mar, PTSD (post-traumatic stress disorder) F43.10 [facility] [id number] [place] [address] 57654- 3414 Mar, [facility] [id number] [place] [address] 39973- 1290 Feb, LLQ pain R10.32 and Other dorsalgia M54.89 [facility] [id number] [place] [address] 69113- 5297 Feb, [facility] [id number] [place] [address] 12396- 2988 Feb, [facility] [id number] [place] [address] 20401- 3854 Feb, PTSD (post-traumatic stress disorder) F43.10 [facility] [id number] [place] [address] 74060- 5024 Feb, PTSD (post-traumatic stress disorder) F43.10 [facility] [id number] [place] [address] 69477- 3657 Feb, Pain in left shoulder M25.512 and Other chronic pain G89.29 [facility] [id number] [place] [address] 74082- 3320 Feb, LLQ pain R10.32 and Other dorsalgia M54.89 [facility] [id number] [place] [address] 37040- 2135 Feb, [facility] [address] [address] 6[address]- 6278 Feb, Right lower quadrant abdominal pain R10.31 ; Pain in left shoulder M25.512 ; Other chronic pain G89.29 and Encounter for immunization Z23 [facility] [address] 74150- 6802 Feb, [facility] [address] 88353- 3765 Jan, Dysfunction of left eustachian tube H69.82 [facility] [address] 25198- 4533 24 Jan, 2018 [facility] [address] 40901- 2119 Jan, [facility] [address] 96184- 0578 Jan, [facility] [address] 77461- 2381 Jan, [facility] [address] 30784- 6570 Jan, Left upper arm pain M79.622 [facility] [address] 77822- 0376 Jan, [facility] [address] 42737- 8285 Jan, PTSD (post-traumatic stress disorder) F43.10 and Tobacco dependency F17.200 [facility] [id number] [place] [address] 75322- 3818 10 Jan, 2018 Back pain M54.9 ; Type 2 diabetes mellitus with diabetic autonomic (poly)neuropathy E11.43 ; Neuropathy G62.9 ; Irritable bowel syndrome with constipation K58.1 ; Sprain of other part of left shoulder region, initial encounter S43.492A and Dysfunction of left eustachian tube H69.82 [facility] [address] 79525- 9337 Jan, [facility] [id number] [place] [address] 27894- 0970 05 Jan, 2018 Neuropathy G62.9 ; LLQ pain R10.32 and Other dorsalgia M54.89 [facility] [id number] [place] [address] 59701- 2840 Jan, [facility] [address] 96795- 9890 Jan, [facility] [id number] [place] [address] 80692- 7690 Dec, Right upper quadrant abdominal pain R10.11 [facility] [address] 60375- 8885 Dec, PTSD (post-traumatic stress disorder) F43.10 [facility] [id number] [place] [address] 28251- 2711 Dec, LLQ pain R10.32 [facility] [id number] [place] [address] 12591- 1126 Dec, Other dorsalgia M54.89 [facility] [id number] [place] [address] 62482- 0832 Dec, Neuropathy G62.9 [facility] [id number] [place] [address] 37795- 2710 Dec, [facility] [id number] [place] [address] 50469- 5499 Nov, Irritable bowel syndrome with constipation K58.1 ; Uncomplicated asthma, unspecified asthma severity J45.909 and Type 2 diabetes mellitus with diabetic autonomic (poly)neuropathy E11.43 [facility] [address] [place] [address] [id number] Nov, Dental examination Z01.20 [facility] [id number] [place] [address] 10600- 7431 Nov, Other dorsalgia M54.89 [facility] [id number] [place] [address] 24375- 8936 Nov, LLQ pain R10.32 ; Low TSH level R94.6 and Gastroparesis K31.84 [facility] [address] 71772 2546 09 Nov, 2017 Anorexia R63.0 [place] [address] 55013 2546 Nov, Asthma exacerbation J45.901 [place] [address] 27005 2546 Oct, PTSD (post-traumatic stress disorder) F43.10 [place] [address] 26018 2546 Oct, [place] [address] 12571 2546 Oct, PTSD (post-traumatic stress disorder) F43.10 and Tobacco dependency F17.200 [place] [address] 60787 2546 Oct, [place] [address] 35006 2546 Oct, Other dorsalgia M54.89 [place] [id number] [place] [address] 61111 2546 Oct, Anorexia R63.0 [facility] [id number] [place] [address] 63076 2546 September, PTSD (post-traumatic stress disorder) F43.10 [place] [address] 80413 2546 September, Low TSH level R94.6 [place] [id number] [place] [address] 12606 2546 September, Other dorsalgia M54.89 [place] [address] [address] [address]- 8734 September, Annual physical exam Z00.00 and Migraine without aura and without status migrainosus, not intractable G43.009 [place] [address] [place] 65230599- 9005 September, Abnormal TSH R94.6 and Dysfunction of left eustachian tube H69.82 [place] [address] [place] 65230485- 1137 Aug, [place] [address] [place] 65230262- 8860 Aug, Anorexia R63.0 [facility] [address] [id number] Aug, Dental examination Z01.20 and Xerostomia K11.[address] 108930- 0873 Aug, Neuropathy G62.9 [place] [address] 06758- 7722 Aug, [address] 55245- 6880 Aug, Other dorsalgia M54.[address] 27230- 8991 Aug, Type 2 diabetes mellitus with diabetic autonomic (poly) neuropathy E11.43 ; Diabetic polyneuropathy associated with type 2 diabetes mellitus E11.42 ; Bronchitis J40 ; Gastroparesis K31.84 and Reactive depression F32.9 [place] [address] 49042- 3001 Aug, PTSD (post-traumatic stress disorder) F43.10 [place] [address] 36270- 8955 Aug, Other dorsalgia M54.89 and Anorexia R63.0 [place] [address] [place] [address] 3476 Jul, [facility] [id number] [place] [address] 52290 2546 Jul, Other dorsalgia M54.89 [facility] [id number] [place] [address] 02810 2546 Jul, [facility] [id number] [place] [address] 77652 2546 Jul, [facility] [id number] [place] [address] 94884 2546 Jul, PTSD (post-traumatic stress disorder) F43.10 [facility] [id number] [place] [address] 52850- 9596 Jul, [facility] [id number] [place] [address] 95969- 0616 Jul, [facility] [id number] [place] [address] 12253 2546 Jul, [facility] [id number] [place] [address] 65288- 9036 Jul, Anorexia R63.0 [facility] [id number] [place] [address] 83570- 9056 Jun, [facility] [id number] [place] [address] 42657 2546 Jun, Vaginal discharge N89.8 ; Visit for gynecologic examination Z01.419 and Pelvic pressure in female R10.2 [facility] [id number] [place] [address] 33031- 6976 Jun, [facility] [id number] [place] [address] 52060- 8646 Jun, Other dorsalgia M54.89 [facility] [id number] [place] [address] 38364- 7136 16 Jun, 2017 [facility] [id number] [place] [address] 70652- 3430 Jun, [facility] [id number] [place] [address] 33912- 4106 Jun, [facility] [id number] [place] [address] 96471- 6751 May, Back pain M54.9 [facility] [address] 76358- 3876 May, Anorexia R63.0 [facility] [id number] [place] [address] 57551- 3205 May, Other dorsalgia M54.89 [facility] [id number] [place] [address] 46312- 1637 May, [facility] [address] 71209- 9033 May, Bronchitis J40 [facility] [id number] [place] [address] 32899- 7278 May, Type 2 diabetes mellitus with diabetic autonomic (poly) neuropathy E11.43 ; FCI current use of insulin Z79.4 ; Back pain M54.9 and Neuropathy G62.9 [facility] [id number] [place] [address] 69389- 8237 May, Left breast mass N63.20 [facility] [id number] [place] [address] 50800- 8477 May, [facility] [id number] [place] [address] 21597- 8054 Apr, Other dorsalgia M54.89 [facility] [id number] [place] [address] 34787- 4016 Apr, Anorexia R63.0 [facility] [id number] [place] [address] 36545- 8796 Apr, Anorexia R63.0 [place] [address] [place] [address] 56761- 6150 Apr, Mass of left breast N63.20 [facility] [id number] [place] [address] 92369- 4002 Apr, [facility] [id number] [place] [address] 36750- 0929 Apr, [facility] [id number] [place] [address] 77802- 0732 Apr, Diarrhea of presumed infectious origin A09 [facility] [id number] [place] [address] 00946- 6537 Apr, Encounter for immunization Z23 [facility] [id number] [place] [address] 84468- 1814 Apr, [facility] [id number] [place] [address] 48076- 0224 Mar, Other dorsalgia M54.89 [facility] [id number] [place] [address] 30367- 7914 Mar, [facility] [id number] [place] [address] 80410- 8800 Mar, [facility] [id number] [place] [address] 71939- 1636 Mar, Anorexia R63.0 [facility] [id number] [place] [address] 76182- 7410 Mar, [facility] [id number] [place] [address] 48671- 3265 Mar, Other dorsalgia M54.89 [facility] [id number] [place] [address] 58559- 4745 Mar, [facility] [id number] [place] [address] 29486- 6676 Mar, Encounter for immunization Z23 [facility] [id number] [place] [address] 83131- 5083 31 Feb, 2017 Anorexia R63.0 [facility] [address] 38256- 6798 Feb, Diabetes E11.9 [facility] [id number] [place] [address] 73688- 1193 Feb, Back pain M54.9 and Diabetes E11.9 [facility] [address] 36874- 4221 Feb, Diabetes E11.9 [facility] [address] 64078- 4572 Feb, Neuropathy G62.9 [facility] [id number] [place] [address] 05114- 0743 Feb, Encounter for immunization Z23 ; Epigastric pain R10.13 ; Weight loss, abnormal R63.4 and Neuropathy G62.9 [facility] [address] [id number] Feb, [facility] [address] 46642- 8984 Feb, [facility] [id number] [place] [address] 89977- 6337 Feb, Intractable vomiting with nausea, unspecified vomiting type R11.2 [facility] [id number] [place] [address] 78449 -8333 Feb, Chronic nausea R11.0 [facility] [id number] [place] [address] 32072- 5861 Feb, Other dorsalgia M54.89 [facility] [id number] [place] [address] 13427- 6048 Jan, [facility] [id number] [place] [address] 67277- 5676 Jan, [facility] [address] [place] [address] 2546 08 Jan, 2017 [facility] [id number] [place] [address] 48854 2546 Jan, [facility] [id number] [place] [address] 79001 2546 Jan, Asthma exacerbation J45.901 ; Bronchitis J40 and Neuropathy G62.9 [facility] [address] 74756 2546 06 Jan, 2017 Anorexia R63.0 [facility] [id number] [place] [address] 14200 2546 Jan, Other dorsalgia M54.89 [facility] [id number] [place] [address] 33649- 7186 Dec, [facility] [id number] [place] [address] 61392- 6566 Dec, [facility] [id number] [place] [address] 57295 2546 15 Dec, 2016 Anorexia R63.0 [facility] [id number] [place] [address] 41459- 7206 Dec, Primary insomnia F51.01 [facility] [id number] [place] [address] 17755- 6331 Dec, Other dorsalgia M54.89 [facility] [id number] [place] [address] 06711- 6264 Dec, [facility] [id number] [place] [address] 84512- 3163 Nov, [facility] [id number] [place] [address] 81033 2546 Nov, [facility] [id number] [place] [address] 34364- 8042 Nov, [facility] [id number] [place] [address] 08555- 7575 Nov, History of colon polyps Z86.010 [facility] [id number] [place] [address] 52922- 8424 Nov, Weight loss R63.4 ; Nausea and vomiting, intractability of vomiting not specified, unspecified vomiting type R11.2 and Abnormal LFTs R79.89 [facility] [id number] [place] [address] 68177- 9705 Nov, [facility] [id number] [place] [address] 26335- 7268 Nov, Neuropathy G62.9 and Pain in right knee M25.561 [place] [id number] [place] [address] 62703- 7909 Nov, Back pain M54.9 [facility] [id number] [place] [address] 08456- 2778 10 Nov, 2016 [facility] [id number] [place] [address] 27564- 6959 08 Nov, 2016 Bronchitis J40 [facility] [id number] [place] [address] 42419- 0590 03 Nov, 2016 Weight loss R63.4 [facility] [id number] [place] [address] 68234- 7543 16 Oct, 2016 Back pain M54.9 [facility] [id number] [place] [address] 38370- 1974 16 Oct, 2016 [facility] [id number] [place] [address] 59784- 0432 14 Oct, 2016 Back pain M54.9 [facility] [id number] [place] [address] 75433- 1200 13 Oct, 2016 Type 2 diabetes mellitus without complications E11.9 and Bronchitis J40 [facility] [id number] [place] [address] 26404- 9724 05 Oct, 2016 [place] [id number] [place] [address] 28842- 6826 Oct, [place] [address] 10586- 5417 September, Gastroparesis K31.84 ; Type 2 diabetes mellitus with diabetic autonomic (poly)neuropathy E11.43 and Neuropathy G62.9 [place] [address] 84066- 1911 September, Other dorsalgia M54.89 [place] [address] 78433- 1716 September, [place] [address] 99002- 8072 September, [place] [address] 29122- 2109 Aug, Gastroparesis K31.84 and Radicular leg pain M54.10 [place] [id number] [place] [address] 14128- 0456 Aug, Anorexia R63.0 [place] [address] 05763- 3432 Aug, Bronchitis J40 [place] [id number] [place] [address] 37185- 2084 Aug, Back pain M54.9 [place] [id number] [place] [address] 97739- 9120 Aug, Routine gynecological examination Z01.419 ; Routine screening for STI (sexually transmitted infection) Z11.3 and Yeast infection of the vagina B37.3 [place] [id number] [place] [address] 95361- 7356 Jul, Other dorsalgia M54.89 [place] [id number] [place] [address] 45719- 4246 Jul, Diabetes E11.9 and Gastroparesis K31.84 [place] [id number] [place] [address] 81302- 3788 Jun, [facility] [address] 82841- 6639 24 Jun, 2016 Back pain M54.9 [facility] [address] 12313- 7388 14 Jun, 2016 Neuropathy G62.9 [facility] [address] [id number] 02 Jun, 2016 Encounter for dental examination Z01.20 [facility] [address] 83782- 7928 Jun, Gastroparesis 536.3 and Anorexia R63.0 [facility] [address] 91719- 5930 May, Other dorsalgia M54.89 [facility] [address] 66184- 7381 May, Periumbilical abdominal pain R10.33 ; Weight loss R63.4 and Gastroparesis K31.84 [facility] [address] 63600- 4076 May, Back pain M54.9 [facility] [address] 18557 2546 Apr, Anorexia R63.0 [facility] [address] 91458 2546 Apr, Anorexia R63.0 [facility] [address] 43885- 6218 Apr, Back pain M54.9 [facility] [address] 85496 2545 15 Apr, 2016 Back pain M54.9 [facility] [address] 62738- 3276 Apr, [facility] [id number] [place] [address] 92784- 7532 Apr, Bronchitis J40 and Neuropathy G62.9 [facility] [id number] [place] [address] 65116- 4201 Apr, Neuropathy G62.9 [facility] [address] 33983- 6624 Apr, [facility] [address] 74313- 0042 Apr, Back pain M54.9 [place] [address] 20626- 6167 Mar, Type 2 diabetes mellitus with diabetic autonomic (poly) neuropathy E11.43 [place] [address] 17995- 8345 Mar, Type 2 diabetes mellitus without complications E11.9 [facility] [id number] [place] [address] 64905- 4609 Mar, Neuropathy G62.9 [place] [address] 00091- [address]328 Mar, [place] [address] 20416- 3443 Mar, Breast cancer screening Z12.39 [place] [id number] [place] [address] 58500- 8985 Mar, Other dorsalgia M54.89 [facility] [id number] [place] [address] 59831- 8416 Feb, [place] [address] [address]607- 1142 Jan, Neuropathy G62.9 ; Type 2 diabetes mellitus with diabetic autonomic (poly)neuropathy E11.43 ; Uncomplicated asthma, unspecified asthma severity J45.909 and Encounter for immunization Z23 [facility] [address] [address] Jan, [facility] [id number] [place] [address] 23354- 0404 Jan, [facility] [id number] [place] [address] 32872- 6406 Dec, [facility] [id number] [place] [address] 87502- 9148 Dec, [facility] [id number] [place] [address] 57985- 4861 Nov, [facility] [id number] [place] [address] 91122- 5396 Nov, Back pain M54.9 [facility] [id number] [place] [address] 56304- 5123 Nov, Neuropathy G62.9 ; Mixed hyperlipidemia E78.2 ; Type 2 diabetes mellitus with diabetic autonomic (poly)neuropathy E11.43 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 [facility] [id number] [place] [address] 94580- 2879 Oct, [facility] [id number] [place] [address] 04861- 2073 Oct, Other dorsalgia M54.89 [facility] [id number] [place] [address] 24818- 0398 September, Primary insomnia F51.01 [facility] [id number] [place] [address] 94008- 5033 September, [facility] [id number] [place] [address] 75896- 1396 Aug, Other dorsalgia M54.89 [facility] [id number] [place] [address] 48267- 5658 Jul, [facility] [id number] [place], [place] [address] 42205- 2264 Jul, Other dorsalgia M54.89 [facility] [id number] [place] [address] 15996- 0129 Jul, Diabetes E11.9 ; Back pain M54.9 ; Neuropathy G62.9 and Gastroparesis K31.84 [facility] [id number] [place] [address] 40262- 0418 Jun, [facility] [id number] [place] [address] 04634- 7002 Jun, Other dorsalgia M54.89 [facility] [id number] [place] [address] 16946- 9538 May, [facility] [id number] [place] [address] 91309- 9575 May, Radicular leg pain M54.10 and Other dorsalgia M54.89 [facility] [id number] [place] [address] 61228- 7523 Apr, [facility] [id number] [place] [address] 54271- 4643 Mar, [facility] [id number] [place] [address] 28130- 9708 Mar, [facility] [id number] [place] [address] 40672- 9579 Mar, Radicular leg pain M54.10 [facility] [id number] [place] [address] 57655- 2367 Feb, [facility] [id number] [place] [address] 00706- 1025 Feb, [facility] [id number] [place] [address] 19697- 6178 Feb, [facility] [id number] [place] [address] 65883- 4342 Jan, [facility] [id number] [place] [address] 42261- 3234 Jan, IBS (irritable bowel syndrome) 564.1 [facility] [id number] [place] [address] 88041- 9464 Jan, [facility] [id number] [place] [address] 86718- 7004 Jan, [facility] [id number] [place] [address] 79428- 8042 Jan, Diabetes mellitus without mention of complication, type II or unspecified type, not stated as uncontrolled 250.00 ; Gastroparesis 536.3 and Hypoacusis 389.9 [facility] [id number] [place] [address] 34752- 3761 Jan, [facility] [id number] [place] [address] 29123- 4899 Jan, [facility] [id number] [place] [address] 68496- 9719 Dec, [facility] [id number] [place] [address] 12967- 0448 Dec, [facility] [id number] [place] [address] 21526- 4822 Dec, [facility] [id number] [place] [address] 96401- 0705 Dec, Back pain 724.5 and Gastroparesis 536.3 [facility] [id number] [place] [address] 66591- 1229 Nov, [facility] [id number] [place] [address] [id number] Nov, Dental examination V72.2 [facility] [address] [address] 9984 Nov, [facility] [id number] [place] [address] 81933- 2959 Nov, [facility] [address] [address]- 7855 Nov, Depressive disorder, not elsewhere classified 311 and No condition on [place] II V71.09 [facility] [address] 8260 Nov, Diabetes 250.00 and Symptomatic menopausal or female climacteric states 627.2 [facility] [id number] [place] [address] 62278- 9424 Oct, [facility] [id number] [place] [address] 48746- 2833 Oct, Lumbar strain 847.2 [facility] [id number] [place] [address] 02473- 1367 Oct, Gastroparesis 536.3 and Unspecified myalgia and myositis 729.1 [facility] [id number] [place] [address] 84616- 0685 Aug, [facility] [address] [address]- 9667 Aug, [facility] [address] [address]- 6306 Jul, [facility] [address] [address]- 0429 Jul, [facility] [address] [address]- 1028 Jul, [facility] [address] [address]- 4246 Jul, [facility] [id number] 4562 Jul, [facility] [address] 6764 Jun, [facility] [id number] [place] [address] 22278- 9133 Jun, [facility] [place] [facility] [address] [id number] [place] [address]- 0579 Jun, [facility] [place] [facility] [address] [id number] [place] [address]- 8587 May, [facility] [place] [facility] [address] [id number] [place] [address]- 6657 May, [facility] [place] [facility] [address] [id number] [place] [address]- 2246 Mar, [facility] [place] [facility] [address] [id number] [place] [address]- 1848 Mar, [facility] [place] [facility] [address] [id number] [place] [address]- 5269 Mar, [facility] [place] [facility] [address] [id number] [place] [address]- 6809 Mar, [facility] [place] [facility] [address] [id number] [place] [address]- 8673 Mar, [facility] [place] [facility] [address] [id number] [place] [address]- 8837 Mar, [facility] [place] [facility] [address] [facility] [id number] [place] [address]- 2471 Feb, [facility] [place] [facility] [address] [id number] [place] [address]- 2518 Feb, [facility] [place] [facility] [address] [id number] [place] [address]- 1124 Nov, [facility] [place] [facility] [address] [id number] [place] [address]- 7059 Nov, [facility] [place] [facility] [address] [id number] [place] [address]- 2714 Nov, [facility] [place] [facility] [address] [facility] [id number] [place] [address]- 4706 Oct, [facility] [place] [facility] [address] [id number] [place] [address]- 1316 September, [facility] [address] [id number] [place] [address]- 6289 Aug, [facility] [place] [facility] [address] [id number] [place] [address]- 4165 Aug, [facility] [place] [facility] [address] [id number] [place] [address]- 5313 Aug, [facility] [place] [facility] [address] [id number] [place] [address]- 2839 Aug, [facility] [place] [facility] [address] [id number] [place] [address]- 5280 Aug, [facility] [address] [id number] [place] [address]- 3598 Aug, [facility] [address] [id number] [place] [address]- 3473 Aug, [facility] [address] [id number] [place] [address]- 9801 Aug, [facility] [place] [facility] [address] [id number] [place] [address]- 0798 Jul, [facility] [place] [facility] [address] [id number] [place] [address]- 3129 Jul, [facility] [place] [facility] [address] [id number] [place] [address]- 9598 Jun, [facility] [place] [facility] [address] [id number] [place] [address]- 4469 Jun, [facility] [place] [facility] [address] [id number] [place] [address]- 3100 Jun, [facility] [place] [facility] [address] [id number] [place] [address]- 2516 Jun, [facility] [place] [facility] [address] [id number] [address]- 6626 Jun, [facility] [id number] [address]- 1300 Jun, [facility] [address] [address]- 6237 Jun, [facility] [address] [address]- 2696 May, [facility] [address] 9150 May, [facility] [address] 8934 May, [facility] [address] [address]- 9057 May, [facility] [address] [place] [address]- 6335 Mar, [facility] [address] [address]- 2272 Mar, [facility] [id number] [address]- 3290 Jan, IMMUNIZATIONS No Known Immunizations SOCIAL HISTORY Never Assessed REASON FOR VISIT Follow-up Trauma PLAN OF CARE Activity Details Follow Up Next available Reason: Follow-up VITAL SIGNS MEDICATIONS Unknown Medications RESULTS No Results PROCEDURES Procedure Date Ordered Result Body Site Psychotherapy, patient &/family, 45 minutes, established patient Apr 01, 2018 INSTRUCTIONS MEDICATIONS ADMINISTERED No Known Medications MEDICAL [...] vomitting-[facility] 03/05/17 Hospitalization History hospital stay at [facility] for stomach issues 2016
--- OUTSIDE RECORDS SUMMARY | 2018-05-04 15:33 | XMS REPORT ---
Author Author HORACE HIGGINS [facility] Address [address] [place] [address] Care Team Providers Care Door Tender Name Role Phone HORACE HIGGINS Unavailable PROBLEMS Type Condition ICD9-CM Code ZUS03-ZR Code Onset Dates Condition Status SNOMED Code Problem Asthma exacerbation J45.901 Active 025614623 Problem Diabetic polyneuropathy associated with type 2 diabetes mellitus E11.42 Active 25805894 Problem Reactive depression F32.9 Active 34745410 Problem Other chronic pain G89.29 Active 67018030 Problem Neuropathy G62.9 Active 604323179 Problem Irritable bowel syndrome with constipation K58.1 Active 037080505 Problem Back pain M54.9 Active 951128248 Problem Low TSH level R94.6 Active 529086099 Problem Migraine without aura and without status migrainosus, not intractable G43.009 Active 782465645 Problem PTSD (post-traumatic stress disorder) F43.10 Active 06224771 Problem Tobacco dependency F17.200 Active 26563917 Problem Annual physical exam Z00.00 Active 720798425 Problem Mixed hyperlipidemia E78.2 Active 119466987 Problem Type 2 diabetes mellitus with diabetic autonomic (poly)neuropathy E11.43 Active 57841171 Problem Diabetes E11.9 Active 27672384 Problem Gastroparesis K31.84 Active 132264771 Problem Anorexia R63.0 Active 76782366 Problem Weight loss R63.4 Active 573462804 Problem 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 Active 743665227 Problem History of colon polyps Z86.010 Active 629294756 Problem Uncomplicated asthma, unspecified asthma severity J45.909 Active 411507429 Problem Primary insomnia F51.01 Active 1095448 ALLERGIES No Information ENCOUNTERS Encounter Location Date Diagnosis [facility] [address] [facility] [id number] [place] [address] Apr, [facility] [address], [place] [address] Apr, [facility] [id number] [place] [address] 35373- 7286 Mar, [facility] [id number] [place] [address] 92535- 3909 Mar, [facility] [id number] [place] [address] 77188- 8127 Feb, LLQ pain R10.32 and Other dorsalgia M54.89 [facility] [id number] [place] [address] 73281- 9005 Feb, [facility] [id number] [place] [address] 30931- 5249 Feb, [facility] [id number] [place] [address] 61621- 6781 Feb, PTSD (post-traumatic stress disorder) F43.10 [facility] [id number] [place] [address] 39131- 3384 Feb, PTSD (post-traumatic stress disorder) F43.10 [facility] [id number] [place] [address] 32077- 2332 Feb, Pain in left shoulder M25.512 and Other chronic pain G89.29 [facility] [id number] [place] [address] 94731- 1875 Feb, LLQ pain R10.32 and Other dorsalgia M54.89 [facility] [id number] [place] [address] 86781- 4778 Feb, [facility] [id number] [place] [address] 60037- 4276 Feb, Right lower quadrant abdominal pain R10.31 ; Pain in left shoulder M25.512 ; Other chronic pain G89.29 and Encounter for immunization Z23 [facility] [id number] [place] [address] 70252- 4665 Feb, [facility] [address], [place] [address] 4094 25 Jan, 2018 Dysfunction of left eustachian tube H69.82 [facility] [id number] [place] [address] 00155- 2796 24 Jan, 2018 [facility] [id number] [place] [address] 43161- 6180 Jan, [facility] [id number] [place] [address] 36664- 6556 Jan, [facility] [id number] [place] [address] 90879- 1774 Jan, [facility] [id number] [place] [address] 40410- 0087 18 Jan, 2018 Left upper arm pain M79.622 [facility] [id number] [place] [address] 74165- 6991 Jan, [facility] [id number] [place] [address] 03670- 7743 18 Jan, 2018 PTSD (post-traumatic stress disorder) F43.10 and Tobacco dependency F17.200 [place] [id number] [place] [address] 81176- 9232 10 Jan, 2018 Back pain M54.9 ; Type 2 diabetes mellitus with diabetic autonomic (poly)neuropathy E11.43 ; Neuropathy G62.9 ; Irritable bowel syndrome with constipation K58.1 ; Sprain of other part of left shoulder region, initial encounter S43.492A and Dysfunction of left eustachian tube H69.82 [facility] [id number] [place] [address] 93014- 4956 06 Jan, 2018 [facility] [id number] [place] [address] 17104- 0887 05 Jan, 2018 Neuropathy G62.9 ; LLQ pain R10.32 and Other dorsalgia M54.89 [place] [address] [place] [address]- 7804 Jan, [facility] [id number] [place] [address] 56062- 8416 Jan, [facility] [id number] [place] [address] 27510- 3094 Dec, Right upper quadrant abdominal pain R10.11 [facility] [address] 90941- 4382 Dec, PTSD (post-traumatic stress disorder) F43.10 [facility] [id number] [place] [address] 36639- 5763 Dec, LLQ pain R10.32 [place] [address] 32758- 8723 Dec, Other dorsalgia M54.89 [place] [address] 14654- 5543 Dec, Neuropathy G62.9 [place] [address] 68697- 7549 Dec, [place] [address] 13262- 7669 Nov, Irritable bowel syndrome with constipation K58.1 ; Uncomplicated asthma, unspecified asthma severity J45.909 and Type 2 diabetes mellitus with diabetic autonomic (poly)neuropathy E11.43 [facility] [id number] [place] [address] [id number] Nov, Dental examination Z01.20 [place] [id number] [place] [address] 86460- 5907 Nov, Other dorsalgia M54.89 [facility] [address] 26937- 2786 Nov, LLQ pain R10.32 ; Low TSH level R94.6 and Gastroparesis K31.84 [place] [address] [place] [address]- 0380 09 Nov, 2017 Anorexia R63.0 [facility] [id number] [place] [address] 91996- 2246 Nov, Asthma exacerbation J45.901 [facility] [id number] [place] [address] 65882 2546 27 Oct, 2017 PTSD (post-traumatic stress disorder) F43.10 [place] [address] 45169- 8276 Oct, [place] [address] 43256- 6816 Oct, PTSD (post-traumatic stress disorder) F43.10 and Tobacco dependency F17.200 [place] [id number] [place] [address] 77528- 9276 Oct, [place] [address] 37207- 3275 Oct, Other dorsalgia M54.89 [place] [id number] [place] [address] 03783- 4461 Oct, Anorexia R63.0 [place] [id number] [place] [address] 20248- 3535 September, PTSD (post-traumatic stress disorder) F43.10 [place] [id number] [place] [address] 17760- 0319 September, Low TSH level R94.6 [place] [id number] [place] [address] 80517- 6016 September, Other dorsalgia M54.89 [place] [id number] [place] [address] 02394- 7216 September, Annual physical exam Z00.00 and Migraine without aura and without status migrainosus, not intractable G43.009 [place] [id number] [place] [address] 44844- 9518 September, Abnormal TSH R94.6 and Dysfunction of left eustachian tube H69.82 [facility] [address] 61687- 0202 Aug, [facility] [address] 07671- 2582 Aug, Anorexia R63.0 [facility] [id number] Aug, Dental examination Z01.20 and Xerostomia K11.7 [place] [address] 68881- 1312 Aug, Neuropathy G62.9 [place] [address] 43503- 6838 Aug, [place] [address] 59453- 4584 Aug, Other dorsalgia M54.89 [place] [address] 28487- 9496 Aug, Type 2 diabetes mellitus with diabetic autonomic (poly) neuropathy E11.43 ; Diabetic polyneuropathy associated with type 2 diabetes mellitus E11.42 ; Bronchitis J40 ; Gastroparesis K31.84 and Reactive depression F32.9 [place] [address] 43237- 6086 Aug, PTSD (post-traumatic stress disorder) F43.10 [facility] [address] 84720- 0157 Aug, Other dorsalgia M54.89 and Anorexia R63.0 [place] [address] 23860- 6570 Jul, [facility] [address] 74971- 5960 Jul, Other dorsalgia M54.89 [place] [address] [place] [address]- 0762 Jul, [facility] [id number] [place] [address] 18216- 1173 Jul, [facility] [id number] [place] [address] 98707- 9545 Jul, PTSD (post-traumatic stress disorder) F43.10 [facility] [address] 20025- 2110 Jul, [facility] [id number] [place] [address] 77796- 6871 Jul, [facility] [id number] [place] [address] 19548- 9206 Jul, [facility] [id number] [place] [address] 81681- 7642 Jul, Anorexia R63.0 [facility] [id number] [place] [address] 02729- 2780 Jun, [facility] [id number] [place] [address] 48038- 5846 Jun, Vaginal discharge N89.8 ; Visit for gynecologic examination Z01.419 and Pelvic pressure in female R10.2 [facility] [id number] [place] [address] 66409- 8719 Jun, [facility] [id number] [place] [address] 51289- 4841 Jun, Other dorsalgia M54.89 [facility] [id number] [place] [address] 18985- 4506 16 Jun, 2017 [facility] [id number] [place] [address] 90236- 9866 07 Jun, 2017 [facility] [id number] [place] [address] 78959- 1946 Jun, [facility] [address] 06527- 5754 May, Back pain M54.9 [facility] [address] 63866- 4196 May, Anorexia R63.0 [facility] [address] 23687- 0410 May, Other dorsalgia M54.89 [facility] [address] 51154- 4054 May, [facility] [address] 42715- 2420 May, Bronchitis J40 [facility] [address] 82909- 7475 May, Type 2 diabetes mellitus with diabetic autonomic (poly) neuropathy E11.43 ; 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 ; Back pain M54.9 and Neuropathy G62.9 [facility] [address] 28890- 5975 May, Left breast mass N63.20 [facility] [address] 30334- 2037 May, [facility] [address] 43374- 8200 Apr, Other dorsalgia M54.89 [facility] [id number] [place] [address] 28895- 7034 Apr, Anorexia R63.0 [facility] [address] 72167- 3553 Apr, Anorexia R63.0 [facility] [address] 93757- 0028 Apr, Mass of left breast N63.20 [facility] [address] 03189- 2407 Apr, [facility] [id number] [place] [address] 33753- 5189 18 Apr, 2017 [facility] [address] 06368- 7140 Apr, Diarrhea of presumed infectious origin A09 [facility] [id number] [place] [address] 00955- 2827 Apr, Encounter for immunization Z23 [facility] [address] 99000- 1024 Apr, [facility] [address] 62324- 5231 Mar, Other dorsalgia M54.89 [facility] [id number] [place] [address] 87528- 5014 Mar, [facility] [address] 79924- 9582 Mar, [facility] [id number] [place] [address] 38018- 1131 Mar, Anorexia R63.0 [facility] [address] 19548- 1177 Mar, [facility] [id number] [place] [address] 16215- 8432 Mar, Other dorsalgia M54.89 [facility] [id number] [place] [address] 17099- 7967 Mar, [facility] [id number] [place] [address] 38654 254 Mar, Encounter for immunization Z23 [facility] [id number] [place] [address] 29128- 0316 Feb, Anorexia R63.0 [facility] [id number] [place] [address] 38638- 5366 Feb, Diabetes E11.9 [facility] [address] [place] [address]- 0800 Feb, Back pain M54.9 and Diabetes E11.9 [facility] [address] 51236- 8537 Feb, Diabetes E11.9 [facility] [address] 29880- 0816 Feb, Neuropathy G62.9 [facility] [address] 47261- 5821 Feb, Encounter for immunization Z23 ; Epigastric pain R10.13 ; Weight loss, abnormal R63.4 and Neuropathy G62.9 [facility] [address] [id number] Feb, [facility] [address] 02776- 3529 Feb, [facility] [address] 57230- 2443 Feb, Intractable vomiting with nausea, unspecified vomiting type R11.2 [facility] [address] 91898 -3884 Feb, Chronic nausea R11.0 [facility] [id number] [place] [address] 92021- 6213 Feb, Other dorsalgia M54.89 [facility] [id number] [place] [address] 19265- 2372 Jan, [facility] [address] 16045- 9459 Jan, [facility] [address] 88152- 0270 Jan, [facility] [id number] [place] [address] 67455- 9125 Jan, [facility] [address] 01184- 6081 08 Jan, 2017 Asthma exacerbation J45.901 ; Bronchitis J40 and Neuropathy G62.9 [facility] [address] 51351- 4404 06 Jan, 2017 Anorexia R63.0 [facility] [id number] [place] [address] 87950- 3636 Jan, Other dorsalgia M54.89 [facility] [address] 07782- 3500 Dec, [facility] [address] 99945- 3106 Dec, [facility] [address] 36790- 1632 Dec, Anorexia R63.0 [facility] [address] 56846- 2595 Dec, Primary insomnia F51.01 [facility] [id number] [place] [address] 01102- 8990 Dec, Other dorsalgia M54.89 [facility] [address] 38494- 1314 Dec, [facility] [id number] [place] [address] 28990- 1190 Nov, [facility] [id number] [place] [address] 26172- 7470 Nov, [facility] [id number] [place] [address] 72818- 6224 Nov, [facility] [address] 37373- 8764 Nov, History of colon polyps Z86.010 [facility] [id number] [place] [address] 19208- 4564 Nov, Weight loss R63.4 ; Nausea and vomiting, intractability of vomiting not specified, unspecified vomiting type R11.2 and Abnormal LFTs R79.89 [facility] [id number] [place] [address] 87103- 0048 18 Nov, 2016 [facility] [address] 73075- 8455 Nov, Neuropathy G62.9 and Pain in right knee M25.561 [facility] [address] 34750- 1730 Nov, Back pain M54.9 [facility] [id number] [place] [address] 92287- 9958 Nov, [facility] [address] 54649- 9043 Nov, Bronchitis J40 [facility] [address] 64700- 5198 Nov, Weight loss R63.4 [facility] [address] 66166- 7354 16 Oct, 2016 Back pain M54.9 [facility] [address] 89861- 0524 Oct, [facility] [id number] [place] [address] 16195- 9053 Oct, Back pain M54.9 [facility] [address] 10270- 6679 Oct, Type 2 diabetes mellitus without complications E11.9 and Bronchitis J40 [facility] [id number] [place] [address] 23816- 3690 Oct, [facility] [address] 73039- 6954 Oct, [facility] [id number] [place] [address] 38319- 3750 September, Gastroparesis K31.84 ; Type 2 diabetes mellitus with diabetic autonomic (poly)neuropathy E11.43 and Neuropathy G62.9 [facility] [id number] [place] [address] 66376- 8958 September, Other dorsalgia M54.89 [facility] [id number] [place] [address] 28281- 2002 September, [facility] [address] 62118- 4983 September, [facility] [address] 15976- 6953 Aug, Gastroparesis K31.84 and Radicular leg pain M54.10 [place] [address] 54513- 9265 Aug, Anorexia R63.0 [place] [address] 18535- 1793 Aug, Bronchitis J40 [place] [id number] [place] [address] 87137- 6286 Aug, Back pain M54.9 [place] [id number] [place] [address] 04696- 2451 Aug, Routine gynecological examination Z01.419 ; Routine screening for STI (sexually transmitted infection) Z11.3 and Yeast infection of the vagina B37.3 [place] [id number] [place] [address] 17961- 9701 Jul, Other dorsalgia M54.89 [facility] [id number] [place] [address] 35006- 6183 Jul, Diabetes E11.9 and Gastroparesis K31.84 [facility] [id number] [place] [address] 00673- 8560 Jun, [facility] [id number] [place] [address] 36556- 0655 Jun, Back pain M54.9 [place] [id number] [place] [address] 93479- 8331 14 Jun, 2016 Neuropathy G62.9 [facility] [address] [id number] Jun, 2016 Encounter for dental examination Z01.20 [facility] [address] 03656- 9235 01 Jun, 2016 Gastroparesis 536.3 and Anorexia R63.0 [facility] [address] 62086 2545 27 May, 2016 Other dorsalgia M54.89 [facility] [address] 48798- 6743 10 May, 2016 Periumbilical abdominal pain R10.33 ; Weight loss R63.4 and Gastroparesis K31.84 [facility] [address] 83615- 4567 May, Back pain M54.9 [facility] [address] [address] Apr, Anorexia R63.0 [facility] [address] [address] Apr, Anorexia R63.0 [facility] [address] [address] 16 Apr, 2016 Back pain M54.9 [facility] [address] [address] 15 Apr, 2016 Back pain M54.9 [facility] [address] [address] Apr, [facility] [address] [address] Apr, Bronchitis J40 and Neuropathy G62.9 [facility] [address] [address] Apr, Neuropathy G62.9 [facility] [id number] [place] [address] Apr, [facility] [id number] [place] [address] Apr, Back pain M54.9 [facility] [id number] [place] [address] Mar, Type 2 diabetes mellitus with diabetic autonomic (poly) neuropathy E11.43 [facility] [id number] [place] [address] Mar, Type 2 diabetes mellitus without complications E11.9 [facility] [id number] [place] [address] Mar, Neuropathy G62.9 [facility] [id number] [place] [address] Mar, [facility] [id number] [place] [address] Mar, Breast cancer screening Z12.39 [place] [address] [address] Mar, Other dorsalgia M54.89 [facility] [id number] [place] [address]- [address] Feb, [facility] [id number] [place] [address] Jan, Neuropathy G62.9 ; Type 2 diabetes mellitus with diabetic autonomic (poly)neuropathy E11.43 ; Uncomplicated asthma, unspecified asthma severity J45.909 and Encounter for immunization Z23 [facility] [id number] [place] [address] 10[address]- [address] Jan, [facility] [id number] [place] [address]- [address] Jan, [facility] [id number] [place] [address]- [address] Dec, [facility] [id number] [place] [address] 17961- 4663 Dec, [facility] [id number] [place] [address] 25803- 6789 Nov, [facility] [id number] [place] [address] 90228- 7699 Nov, Back pain M54.9 [facility] [id number] [place] [address] 25495- 3256 Nov, Neuropathy G62.9 ; Mixed hyperlipidemia E78.2 ; Type 2 diabetes mellitus with diabetic autonomic (poly)neuropathy E11.43 and 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 [place] [address] [id number] [place] [address] 87660- 2706 Oct, [place] [id number] [place] [address] 60404- 3515 Oct, Other dorsalgia M54.89 [place] [id number] [place] [address] 41813- 5586 September, Primary insomnia F51.01 [place] [id number] [place] [address] 56307- 5354 September, [place] [id number] [place] [address] 31132- 3314 Aug, Other dorsalgia M54.89 [facility] [id number] [place] [address] 03355- 4114 Jul, [facility] [id number] [place] [address] 79388- 3053 Jul, Other dorsalgia M54.89 [facility] [id number] [place] [address] 76917- 9903 Jul, Diabetes E11.9 ; Back pain M54.9 ; Neuropathy G62.9 and Gastroparesis K31.84 [address] [facility] [id number] [address] Jun, [facility] [id number] [place] [address] 99321- 5886 Jun, Other dorsalgia M54.89 [facility] [id number] [place] [address] 34400 2546 May, [facility] [id number] [place] [address] 12912 2545 May, Radicular leg pain M54.10 and Other dorsalgia M54.89 [facility] [id number] [place] [address] 88840- 1164 Apr, [facility] [id number] [place] [address] 46299- 6306 Mar, [facility] [id number] [place] [address] 94950- 8108 Mar, [facility] [id number] [place] [address] 19710- 8149 Mar, Radicular leg pain M54.10 [facility] [id number] [place] [address] 20453- 5155 Feb, [facility] [id number] [place] [address] 18689- 4534 Feb, [facility] [id number] [place] [address] 46836- 3485 Feb, [facility] [id number] [place] [address] 24242- 1101 Jan, [facility] [id number] [place] [address] 67303- 6257 22 Jan, 2015 IBS (irritable bowel syndrome) 564.1 [facility] [address] [address] 2016 Jan, [facility] [id number] [place] [address] 34167- 4933 Jan, [facility] [id number] [place] [address] 84566- 2208 Jan, Diabetes mellitus without mention of complication, type II or unspecified type, not stated as uncontrolled 250.00 ; Gastroparesis 536.3 and Hypoacusis 389.9 [facility] [id number] [place] [address] 75136- 7258 Jan, [facility] [id number] [place] [address] 69911- 1018 Jan, [facility] [id number] [place] [address] 70466- 7495 Dec, [facility] [id number] [place] [address] 99930- 7631 Dec, [facility] [id number] [place] [address] 98740- 0353 Dec, [facility] [id number] [place] [address] 49101- 9506 Dec, Back pain 724.5 and Gastroparesis 536.3 [facility] [id number] [place] [address] 20876- 5864 Nov, [facility] [id number] [place] [address] [id number] Nov, Dental examination V72.2 [facility] [id number] [place] [address] 55959- 8561 Nov, [facility] [id number] [place] [address] 92381- 2780 Nov, [facility] [id number] [place] [address] 97388- 4348 Nov, Depressive disorder, not elsewhere classified 311 and No condition on Bronson II V71.09 [facility] [id number] [place] [address] 49288- 2546 Nov, Diabetes 250.00 and Symptomatic menopausal or female climacteric states 627.2 [facility] [address], [place] [address]- 8786 Oct, [facility] [id number] [address]- 1076 Oct, Lumbar strain 847.2 [facility] [id number] [place] [address] 08516- 6166 Oct, Gastroparesis 536.3 and Unspecified myalgia and myositis 729.1 [facility] [id number] [place] [address] 05021- 0386 Aug, [facility] [id number] [address]- 3366 Aug, [facility] [id number] [place] [address] 61620- 5276 Jul, [facility] [address], [place] [address]- 3701 Jul, [facility] [address], [place] [address]- 8584 Jul, [facility] [address], [place] [address]- 7856 Jul, [facility] [address], [place] [address]- 2166 Jul, [facility] [address], [place] [address]- 9336 Jun, [facility] [address], [place] [address]- 0636 Jun, [facility] [address], [place] [address]- 2546 Jun, [facility] [address], [place] [address]- 1517 May, [facility] [place] [facility] [address] [id number] [place] [address]- 0869 May, [facility] [place] [facility] [address] [id number] [place] [address]- 1244 Mar, [facility] [place] [facility] [address] [id number] [place] [address]- 7293 Mar, [facility] [place] [facility] [address] [id number] [place] [address]- 3857 Mar, [facility] [place] [facility] [address] [id number] [place] [address]- 5517 Mar, [facility] [place] [facility] [address] [id number] [place] [address]- 7037 Mar, [facility] [place] [facility] [address] [id number] [place] [address]- 2794 Mar, [facility] [place] [facility] [address] [id number] [place] [address]- 9016 Feb, [facility] [place] [facility] [address] [id number] [place] [address]- 5883 Feb, [facility] [place] [facility] [address] [id number] [place] [address]- 5885 Nov, [facility] [place] [facility] [address] [id number], [place] [address]- 9859 Nov, [facility] [place] [facility] [address] [id number], [place] [address]- 3817 Nov, [facility] [place] [facility] [address] [id number] [place] [address]- 7737 Oct, [facility] [place] [facility] [address] [id number] [place] [address]- 9465 September, [facility] [place] [facility] [address] [id number] [place] [address]- 6622 Aug, [facility] [place] [facility] [address] [id number] [place] [address]- 7003 15 Aug, 2012 [facility] [address] [id number] [place] [address]- 8167 11 Aug, 2012 [facility] [place] [facility] [address] [id number] [place] [address]- 9246 11 Aug, 2012 [facility] [address] [id number] [place] [address]- 1327 10 Aug, 2012 [facility] [place] [facility] [address] [id number] [place] [address]- 2299 09 Aug, 2012 [facility] [address] [id number] [place] [address]- 8103 Aug, [facility] [place] [facility] [address] [facility] [id number] [place] [address]- 9015 02 Aug, 2012 [facility] [address] [id number] [place] [address]- 6557 Jul, [facility] [place] [facility] [address] [facility] [id number] [place] [address]- 9841 Jul, [facility] [place] [facility] [address] [facility] [id number] [place] [address]- 6143 Jun, [facility] [place] [facility] [address] [facility] [id number] [place] [address]- 5855 Jun, [facility] [place] [facility] [address] [facility] [id number] [place] [address]- 3058 Jun, [facility] [place] [facility] [address] [facility] [id number] [place] [address]- 7529 08 Jun, 2012 [facility] [place] [facility] [address] [id number] [place] [address]- 5710 07 Jun, 2012 [facility] [place] [facility] [address] [facility] [id number] [place] [address]- 5529 07 Jun, 2012 [facility] [place] [facility] [address] [facility] [id number] [place] [address]- 3636 Jun, [facility] [address] [facility] [id number], [place] [address]- 4437 May, [facility] [id number] [address]- 8446 May, [facility] [address] [facility] [id number], [place] [address]- 8000 May, [facility] [address] [id number], [place] [address]- 2119 May, [facility] [address] [facility] [id number], [place] [address]- 6421 Mar, [facility] [id number] [address]- 9942 Mar, [facility] [address] [id number], [place] [address]- 6562 Jan, IMMUNIZATIONS No Known Immunizations SOCIAL HISTORY Never Assessed REASON FOR VISIT 1 yr f/u DM Ed PLAN OF CARE VITAL SIGNS MEDICATIONS Unknown [...] vomitting-VC 03/05/17 Hospitalization History hospital stay at [facility] for stomach issues 2016
--- OUTSIDE RECORDS SUMMARY | 2018-05-04 15:33 | XMS REPORT ---
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 Name Role Phone HORACE HIGGINS Unavailable PROBLEMS Type Condition ICD9-CM Code [id number] Code Onset Dates Condition Status SNOMED Code Problem Asthma exacerbation J45.901 Active 924487504 Problem Diabetic polyneuropathy associated with type 2 diabetes mellitus E11.42 Active 41018478 Problem Reactive depression F32.9 Active 40843541 Problem Other chronic pain G89.29 Active 85390695 Problem Neuropathy G62.9 Active 960924786 Problem Irritable bowel syndrome with constipation K58.1 Active 429961243 Problem Back pain M54.9 Active 182714020 Problem Low TSH level R94.6 Active 935136198 Problem Migraine without aura and without status migrainosus, not intractable G43.009 Active 460077442 Problem PTSD (post-traumatic stress disorder) F43.10 Active 49203166 Problem Tobacco dependency F17.200 Active 57738941 Problem Annual physical exam Z00.00 Active 310798272 Problem Mixed hyperlipidemia E78.2 Active 033239842 Problem Type 2 diabetes mellitus with diabetic autonomic (poly)neuropathy E11.43 Active 38052560 Problem Diabetes E11.9 Active 20980691 Problem Gastroparesis K31.84 Active 462079170 Problem Anorexia R63.0 Active 65857718 Problem Weight loss R63.4 Active 712962245 Problem 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 Active 567802472 Problem History of colon polyps Z86.010 Active 750629353 Problem Uncomplicated asthma, unspecified asthma severity J45.909 Active 940680568 Problem Primary insomnia F51.01 Active 5617539 ALLERGIES No Information ENCOUNTERS Encounter Location Date Diagnosis [facility] [address] [facility] [id number] [place] [address] 18 Apr, 2018 [facility] [address], [place] [address] Apr, [facility] [id number] [place] [address] 72970- 5020 Mar, [facility] [id number] [place] [address] 85234- 6429 Mar, [facility] [id number] [place] [address] 35688- 7116 Feb, LLQ pain R10.32 and Other dorsalgia M54.89 [facility] [id number] [place] [address] 04292- 3491 Feb, [facility] [id number] [place] [address] 64017- 6020 Feb, [facility] [id number] [place] [address] 24305- 1310 Feb, PTSD (post-traumatic stress disorder) F43.10 [facility] [id number] [place] [address] 55868- 6137 Feb, PTSD (post-traumatic stress disorder) F43.10 [facility] [id number] [place] [address] 43815- 2013 Feb, Pain in left shoulder M25.512 and Other chronic pain G89.29 [facility] [id number] [place] [address] 18984- 6594 Feb, LLQ pain R10.32 and Other dorsalgia M54.89 [facility] [id number] [place] [address] 83706- 2106 Feb, [facility] [id number] [place] [address] 94554- 5342 Feb, Right lower quadrant abdominal pain R10.31 ; Pain in left shoulder M25.512 ; Other chronic pain G89.29 and Encounter for immunization Z23 [facility] [id number] [place] [address] 91935- 1234 Feb, [facility] [address], [place] [address] 6447 25 Jan, 2018 Dysfunction of left eustachian tube H69.82 [facility] [id number] [place] [address] 82226- 2987 24 Jan, 2018 [facility] [id number] [place] [address] 04147- 9800 Jan, [facility] [id number] [place] [address] 42924- 2368 Jan, [facility] [id number] [place] [address] 36315- 2123 Jan, [facility] [id number] [place] [address] 51424- 0215 18 Jan, 2018 Left upper arm pain M79.622 [facility] [id number] [place] [address] 53948- 5045 Jan, [facility] [id number] [place] [address] 12651- 5385 18 Jan, 2018 PTSD (post-traumatic stress disorder) F43.10 and Tobacco dependency F17.200 [facility] [id number] [place] [address] 01610- 5835 10 Jan, 2018 Back pain M54.9 ; Type 2 diabetes mellitus with diabetic autonomic (poly)neuropathy E11.43 ; Neuropathy G62.9 ; Irritable bowel syndrome with constipation K58.1 ; Sprain of other part of left shoulder region, initial encounter S43.492A and Dysfunction of left eustachian tube H69.82 [facility] [id number] [place] [address] 84894- 8248 06 Jan, 2018 [facility] [id number] [place] [address] 61790- 3734 05 Jan, 2018 Neuropathy G62.9 ; LLQ pain R10.32 and Other dorsalgia M54.89 [facility] [address] [place] [address]- 5793 Jan, [facility] [id number] [place] [address] 69144- 5621 Jan, [facility] [id number] [place] [address] 48908- 4405 Dec, Right upper quadrant abdominal pain R10.11 [facility] [address] 59768- 1709 Dec, PTSD (post-traumatic stress disorder) F43.10 [facility] [id number] [place] [address] 02288- 4336 Dec, LLQ pain R10.32 [facility] [address] 41783- 9933 Dec, Other dorsalgia M54.89 [facility] [address] 50880- 3933 Dec, Neuropathy G62.9 [facility] [address] 95291- 6927 Dec, [facility] [address] 35973- 0749 Nov, Irritable bowel syndrome with constipation K58.1 ; Uncomplicated asthma, unspecified asthma severity J45.909 and Type 2 diabetes mellitus with diabetic autonomic (poly)neuropathy E11.43 [facility] [id number] [place] [address] [id number] Nov, Dental examination Z01.20 [facility] [id number] [place] [address] 20653- 9747 Nov, Other dorsalgia M54.89 [facility] [address] 78989- 2560 Nov, LLQ pain R10.32 ; Low TSH level R94.6 and Gastroparesis K31.84 [facility] [address] [place] [address]- 1250 09 Nov, 2017 Anorexia R63.0 [facility] [id number] [place] [address] 46345- 0826 Nov, Asthma exacerbation J45.901 [facility] [id number] [place] [address] 80916 2546 27 Oct, 2017 PTSD (post-traumatic stress disorder) F43.10 [facility] [address] 67242- 8706 Oct, [facility] [address] 42434- 9576 Oct, PTSD (post-traumatic stress disorder) F43.10 and Tobacco dependency F17.200 [facility] [id number] [place] [address] 46459- 9616 Oct, [facility] [address] 90528- 4595 Oct, Other dorsalgia M54.89 [facility] [id number] [place] [address] 70750- 0286 Oct, Anorexia R63.0 [facility] [id number] [place] [address] 38874- 3259 September, PTSD (post-traumatic stress disorder) F43.10 [facility] [id number] [place] [address] 47350- 3596 September, Low TSH level R94.6 [facility] [id number] [place] [address] 16198- 2690 September, Other dorsalgia M54.89 [facility] [id number] [place] [address] 75041- 3996 September, Annual physical exam Z00.00 and Migraine without aura and without status migrainosus, not intractable G43.009 [facility] [id number] [place] [address] 07267- 3084 September, Abnormal TSH R94.6 and Dysfunction of left eustachian tube H69.82 [facility] [address] 85151- 3539 Aug, [facility] [address] 24829- 2542 Aug, Anorexia R63.0 [facility] [id number] Aug, Dental examination Z01.20 and Xerostomia K11.7 [facility] [address] 79151- 8947 Aug, Neuropathy G62.9 [facility] [address] 20226- 8611 Aug, [facility] [address] 14043- 8574 Aug, Other dorsalgia M54.89 [facility] [address] 19491- 7020 Aug, Type 2 diabetes mellitus with diabetic autonomic (poly) neuropathy E11.43 ; Diabetic polyneuropathy associated with type 2 diabetes mellitus E11.42 ; Bronchitis J40 ; Gastroparesis K31.84 and Reactive depression F32.9 [facility] [address] 51785- 0559 Aug, PTSD (post-traumatic stress disorder) F43.10 [facility] [address] 60602- 7056 Aug, Other dorsalgia M54.89 and Anorexia R63.0 [facility] [address] 41481- 0295 Jul, [facility] [address] 11494- 2204 Jul, Other dorsalgia M54.89 [facility] [address] [place] [address]- 6913 Jul, [facility] [id number] [place] [address] 23336- 4005 Jul, [facility] [id number] [place] [address] 44129- 9741 Jul, PTSD (post-traumatic stress disorder) F43.10 [facility] [address] 95853- 2109 Jul, [facility] [id number] [place] [address] 39160- 7344 Jul, [facility] [id number] [place] [address] 75257- 9776 Jul, [facility] [id number] [place] [address] 27836- 1993 Jul, Anorexia R63.0 [facility] [id number] [place] [address] 42717- 0834 Jun, [facility] [id number] [place] [address] 94866- 2162 Jun, Vaginal discharge N89.8 ; Visit for gynecologic examination Z01.419 and Pelvic pressure in female R10.2 [facility] [id number] [place] [address] 70517- 1917 Jun, [facility] [id number] [place] [address] 49647- 8538 Jun, Other dorsalgia M54.89 [facility] [id number] [place] [address] 77523- 6786 16 Jun, 2017 [facility] [id number] [place] [address] 03642- 4596 07 Jun, 2017 [facility] [id number] [place] [address] 48559- 0556 Jun, [facility] [address] 56612- 1617 May, Back pain M54.9 [facility] [address] 38436- 7886 May, Anorexia R63.0 [facility] [address] 33940- 7698 May, Other dorsalgia M54.89 [facility] [address] 28291- 5549 May, [facility] [address] 38834- 0869 May, Bronchitis J40 [facility] [address] 16526- 6999 May, Type 2 diabetes mellitus with diabetic autonomic (poly) neuropathy E11.43 ; 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 ; Back pain M54.9 and Neuropathy G62.9 [facility] [address] 96423- 4841 May, Left breast mass N63.20 [facility] [address] 53861- 0371 May, [facility] [address] 66966- 4584 Apr, Other dorsalgia M54.89 [facility] [id number] [place] [address] 82207- 9437 Apr, Anorexia R63.0 [facility] [address] 20786- 2173 Apr, Anorexia R63.0 [facility] [address] 85284- 5028 Apr, Mass of left breast N63.20 [facility] [address] 58404- 1476 Apr, [facility] [id number] [place] [address] 43728- 3857 18 Apr, 2017 [facility] [address] 07095- 9882 Apr, Diarrhea of presumed infectious origin A09 [facility] [id number] [place] [address] 74641- 8798 Apr, Encounter for immunization Z23 [facility] [address] 48097- 6016 Apr, [facility] [address] 97167- 2903 Mar, Other dorsalgia M54.89 [facility] [id number] [place] [address] 93162- 7249 Mar, [facility] [address] 18193- 4921 Mar, [facility] [id number] [place] [address] 48005- 0167 Mar, Anorexia R63.0 [facility] [address] 15551- 6418 Mar, [facility] [id number] [place] [address] 94803- 2999 Mar, Other dorsalgia M54.89 [facility] [id number] [place] [address] 43478- 0931 Mar, [facility] [id number] [place] [address] 67847 2542 Mar, Encounter for immunization Z23 [facility] [id number] [place] [address] 89945- 5186 Feb, Anorexia R63.0 [facility] [id number] [place] [address] 25410- 9336 Feb, Diabetes E11.9 [facility] [address] [place] [address]- 9356 Feb, Back pain M54.9 and Diabetes E11.9 [facility] [address] 89288- 6558 Feb, Diabetes E11.9 [facility] [address] 13809- 2990 Feb, Neuropathy G62.9 [facility] [address] 03289- 2148 Feb, Encounter for immunization Z23 ; Epigastric pain R10.13 ; Weight loss, abnormal R63.4 and Neuropathy G62.9 [facility] [address] [id number] Feb, [facility] [address] 03090- 1906 Feb, [facility] [address] 01883- 3580 Feb, Intractable vomiting with nausea, unspecified vomiting type R11.2 [facility] [address] 41028 -3858 Feb, Chronic nausea R11.0 [facility] [id number] [place] [address] 45159- 3204 Feb, Other dorsalgia M54.89 [facility] [id number] [place] [address] 60604- 8744 Jan, [facility] [address] 06422- 0904 Jan, [facility] [address] 65646- 3463 Jan, [facility] [id number] [place] [address] 35587- 0469 Jan, [facility] [address] 65786- 0995 08 Jan, 2017 Asthma exacerbation J45.901 ; Bronchitis J40 and Neuropathy G62.9 [facility] [address] 92437- 2498 06 Jan, 2017 Anorexia R63.0 [facility] [id number] [place] [address] 51867- 2503 Jan, Other dorsalgia M54.89 [facility] [address] 30972- 4532 Dec, [facility] [address] 28438- 6458 Dec, [facility] [address] 45561- 4614 Dec, Anorexia R63.0 [facility] [address] 99712- 1381 Dec, Primary insomnia F51.01 [facility] [id number] [place] [address] 25539- 5049 Dec, Other dorsalgia M54.89 [facility] [address] 00177- 6020 Dec, [facility] [id number] [place] [address] 14857- 9197 Nov, [facility] [id number] [place] [address] 64752- 2804 Nov, [facility] [id number] [place] [address] 86620- 0748 Nov, [facility] [address] 64233- 8825 Nov, History of colon polyps Z86.010 [facility] [id number] [place] [address] 49305- 6917 Nov, Weight loss R63.4 ; Nausea and vomiting, intractability of vomiting not specified, unspecified vomiting type R11.2 and Abnormal LFTs R79.89 [facility] [id number] [place] [address] 59716- 8096 18 Nov, 2016 [facility] [address] 96347- 9053 Nov, Neuropathy G62.9 and Pain in right knee M25.561 [facility] [address] 16328- 5799 Nov, Back pain M54.9 [facility] [id number] [place] [address] 20270- 1899 Nov, [facility] [address] 20107- 8981 Nov, Bronchitis J40 [facility] [address] 09013- 8869 Nov, Weight loss R63.4 [facility] [address] 33953- 0416 16 Oct, 2016 Back pain M54.9 [facility] [address] 27402- 2197 Oct, [facility] [id number] [place] [address] 55945- 8940 Oct, Back pain M54.9 [facility] [address] 32352- 3112 Oct, Type 2 diabetes mellitus without complications E11.9 and Bronchitis J40 [facility] [id number] [place] [address] 06024- 4717 Oct, [facility] [address] 44118- 3347 Oct, [facility] [id number] [place] [address] 67310- 8961 September, Gastroparesis K31.84 ; Type 2 diabetes mellitus with diabetic autonomic (poly)neuropathy E11.43 and Neuropathy G62.9 [facility] [id number] [place] [address] 26715- 3837 September, Other dorsalgia M54.89 [facility] [id number] [place] [address] 65242- 6391 September, [facility] [address] 86176- 6063 September, [facility] [address] 84565- 3352 Aug, Gastroparesis K31.84 and Radicular leg pain M54.10 [facility] [address] 09431- 6248 Aug, Anorexia R63.0 [facility] [address] 40163- 0104 Aug, Bronchitis J40 [facility] [id number] [place] [address] 36919- 8537 Aug, Back pain M54.9 [facility] [id number] [place] [address] 89963- 5144 Aug, Routine gynecological examination Z01.419 ; Routine screening for STI (sexually transmitted infection) Z11.3 and Yeast infection of the vagina B37.3 [facility] [id number] [place] [address] 30218- 8692 Jul, Other dorsalgia M54.89 [facility] [id number] [place] [address] 82000- 9743 Jul, Diabetes E11.9 and Gastroparesis K31.84 [facility] [id number] [place] [address] 92234- 4770 Jun, [facility] [id number] [place] [address] 92334- 3976 Jun, Back pain M54.9 [facility] [id number] [place] [address] 91790- 6783 14 Jun, 2016 Neuropathy G62.9 [facility] [address] [id number] Jun, 2016 Encounter for dental examination Z01.20 [facility] [address] 15005- 4269 01 Jun, 2016 Gastroparesis 536.3 and Anorexia R63.0 [facility] [address] [address] 27 May, 2016 Other dorsalgia M54.89 [facility] [address] [address] 10 May, 2016 Periumbilical abdominal pain R10.33 ; Weight loss R63.4 and Gastroparesis K31.84 [facility] [address] [address] May, Back pain M54.9 [facility] [address] [address] 25[address] Apr, Anorexia R63.0 [facility] [address] [address] Apr, Anorexia R63.0 [facility] [address] [address] 16 Apr, 2016 Back pain M54.9 [facility] [address] [address] 2546 15 Apr, 2016 Back pain M54.9 [facility] [address] [address] Apr, [facility] [address] [address] 2546 Apr, Bronchitis J40 and Neuropathy G62.9 [facility] [address] [address] Apr, Neuropathy G62.9 [facility] [id number] [place] [address] [phone] Apr, [facility] [id number] [place] [phone] Apr, Back pain M54.9 [facility] [id number] [place] [phone]- [phone] Mar, Type 2 diabetes mellitus with diabetic autonomic (poly) neuropathy E11.43 [facility] [id number] [place] [address]- 5218 Mar, Type 2 diabetes mellitus without complications E11.9 [facility] [id number] [place] [phone] Mar, Neuropathy G62.9 [facility] [id number] [place] [phone]- [phone] Mar, [facility] [id number] [place] [address]10- [phone] Mar, Breast cancer screening Z12.39 [place] [address] [address]- [address] Mar, Other dorsalgia M54.89 [facility] [id number] [place] [address] 88606- 5332 Feb, [facility] [id number] [place] [address] 00203- 7286 Jan, Neuropathy G62.9 ; Type 2 diabetes mellitus with diabetic autonomic (poly)neuropathy E11.43 ; Uncomplicated asthma, unspecified asthma severity J45.909 and Encounter for immunization Z23 [facility] [id number] [place] [address] 20405- 1043 Jan, [facility] [id number] [place] [address] 07204- 0044 Jan, [facility] [id number] [place] [address] 61186- 6570 Dec, [facility] [id number] [place] [address] 66466- 9089 Dec, [facility] [id number] [place] [address] 19370- 8758 Nov, [facility] [id number] [place] [address] 49246- 1992 Nov, Back pain M54.9 [facility] [id number] [place] [address] 79415- 6254 Nov, Neuropathy G62.9 ; Mixed hyperlipidemia E78.2 ; Type 2 diabetes mellitus with diabetic autonomic (poly)neuropathy E11.43 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 [facility] [id number] [place] [address] 18150- 2291 Oct, [facility] [facility] [id number] [place] [address] 79730- 2951 Oct, Other dorsalgia M54.89 [facility] [id number] [place] [address] 68426- 4612 September, Primary insomnia F51.01 [facility] [id number] [place] [address] 38879- 1463 September, [facility] [id number] [place] [address] 02461- 2423 Aug, Other dorsalgia M54.89 [facility] [id number] [place] [address] 16139- 4086 Jul, [facility] [id number] [place] [address] 35905- 6460 Jul, Other dorsalgia M54.89 [facility] [id number] [place] [address] 18417- 5741 Jul, Diabetes E11.9 ; Back pain M54.9 ; Neuropathy G62.9 and Gastroparesis K31.84 [address] [facility] [id number] [address]- 1571 Jun, [facility] [id number] [place] [address] 60277- 5936 Jun, Other dorsalgia M54.89 [facility] [id number] [place] [address] 60352 2546 May, [facility] [id number] [place] [address] 66331 2542 May, Radicular leg pain M54.10 and Other dorsalgia M54.89 [facility] [id number] [place] [address] 86459- 4493 Apr, [facility] [id number] [place] [address] 24506- 2166 Mar, [facility] [id number] [place] [address] 78267- 1528 Mar, [facility] [id number] [place] [address] 45217- 8877 Mar, Radicular leg pain M54.10 [facility] [id number] [place] [address] 46035- 7740 Feb, [facility] [id number] [place] [address] 05311- 9073 Feb, [facility] [id number] [place] [address] 76929- 7900 Feb, [facility] [id number] [place] [address] 87382- 2953 Jan, [facility] [id number] [place] [address] 32962- 8338 22 Jan, 2015 IBS (irritable bowel syndrome) 564.1 [facility] [address] [address]- 0059 Jan, [facility] [id number] [place] [address] 76230- 3126 Jan, [facility] [id number] [place] [address] 36782- 9089 Jan, Diabetes mellitus without mention of complication, type II or unspecified type, not stated as uncontrolled 250.00 ; Gastroparesis 536.3 and Hypoacusis 389.9 [facility] [id number] [place] [address] 35871- 4202 Jan, [facility] [id number] [place] [address] 71853- 2914 Jan, [facility] [id number] [place] [address] 15999- 6219 Dec, [facility] [id number] [place] [address] 15964- 3587 Dec, [facility] [id number] [place] [address] 64670- 9342 Dec, [facility] [id number] [place] [address] 20352- 2526 Dec, Back pain 724.5 and Gastroparesis 536.3 [facility] [id number] [place] [address] 38097- 1682 Nov, [facility] [id number] [place] [address] [id number] Nov, Dental examination V72.2 [facility] [id number] [place] [address] 30298- 7897 Nov, [facility] [id number] [place] [address] 87008- 4358 Nov, [facility] [id number] [place] [address] 74206- 8719 Nov, Depressive disorder, not elsewhere classified 311 and No condition on Butterfield II V71.09 [facility] [id number] [place] [address] 48343- 2546 Nov, Diabetes 250.00 and Symptomatic menopausal or female climacteric states 627.2 [facility] [address] [place] [address]- 2996 Oct, [facility] [id number] [address]- 5016 Oct, Lumbar strain 847.2 [facility] [id number] [place] [address] 83558- 0436 Oct, Gastroparesis 536.3 and Unspecified myalgia and myositis 729.1 [facility] [id number] [place] [address] 98236- 4426 Aug, [facility] [id number] [address]- 4166 Aug, [facility] [id number] [place] [address] 72991- 4046 Jul, [facility] [address] [place] [address]- 7094 Jul, [facility] [address], [place] [address]- 8448 Jul, [facility] [address], [place] [address]- 7946 Jul, [facility] [address], [place] [address]- 4166 Jul, [facility] [address] [place] [address]- 8456 Jun, [facility] [address], [place] [address]- 9966 Jun, [facility] [address], [place] [address]- 2546 Jun, [facility] [address], [place] [address]- 0547 May, [facility] [place] [facility] [address] [id number] [place] [address]- 7009 May, [facility] [place] [facility] [address] [id number] [place] [address]- 4337 Mar, [facility] [place] [facility] [address] [id number] [place] [address]- 3629 Mar, [facility] [place] [facility] [address] [id number] [place] [address]- 2728 Mar, [facility] [place] [facility] [address] [id number] [place] [address]- 2857 Mar, [facility] [place] [facility] [address] [id number] [place] [address]- 4822 Mar, [facility] [place] [facility] [address] [id number] [place] [address]- 9155 Mar, [facility] [place] [facility] [address] [id number] [place] [address]- 2965 Feb, [facility] [place] [facility] [address] [id number] [place] [address]- 4776 Feb, [facility] [place] [facility] [address] [id number] [place] [address]- 8973 Nov, [facility] [place] [facility] [address] [id number], [place] [address]- 2305 Nov, [facility] [place] [facility] [address] [id number], [place] [address]- 0547 Nov, [facility] [place] [facility] [address] [id number] [place] [address]- 2444 Oct, [facility] [place] [facility] [address] [id number] [place] [address]- 6114 September, [facility] [place] [facility] [address] [id number] [place] [address]- 5571 Aug, [facility] [place] [facility] [address] [id number] [place] [address]- 8740 15 Aug, 2012 [facility] [address] [id number] [place] [address]- 3157 11 Aug, 2012 [facility] [place] [facility] [address] [id number] [place] [address]- 3916 11 Aug, 2012 [facility] [address] [id number] [place] [address]- 8149 10 Aug, 2012 [facility] [place] [facility] [address] [id number] [place] [address]- 3195 09 Aug, 2012 [facility] [address] [id number] [place] [address]- 0130 Aug, [facility] [place] [facility] [address] [facility] [id number] [place] [address]- 0822 02 Aug, 2012 [facility] [address] [id number] [place] [address]- 5117 Jul, [facility] [place] [facility] [address] [facility] [id number] [place] [address]- 6797 Jul, [facility] [place] [facility] [address] [facility] [id number] [place] [address]- 7342 Jun, [facility] [place] [facility] [address] [facility] [id number] [place] [address]- 4565 Jun, [facility] [place] [facility] [address] [facility] [id number] [place] [address]- 4278 Jun, [facility] [place] [facility] [address] [facility] [id number] [place] [address]- 9985 08 Jun, 2012 [facility] [place] [facility] [address] [id number] [place] [address]- 1002 07 Jun, 2012 [facility] [place] [facility] [address] [facility] [id number] [place] [address]- 5166 07 Jun, 2012 [facility] [place] [facility] [address] [facility] [id number] [place] [address]- 3064 Jun, [facility] [address] [facility] [id number], [place] [address]- 4660 May, [facility] [address] [facility] [id number], [place] [address]- 3106 May, [facility] [address] [facility] [id number], [place] [address]- 0376 May, [facility] [address] [facility] [id number], [place] [address]- 9221 May, [facility] [address] [facility] [id number], [place] [address]- 2714 Mar, [facility] [address] [facility] [id number], [place] [address]- 2802 Mar, [facility] [id number] [address]- 2773 Jan, IMMUNIZATIONS No Known Immunizations SOCIAL HISTORY Never Assessed REASON FOR VISIT Controlled Med Refill 03/27 PLAN OF CARE VITAL SIGNS MEDICATIONS Medication Instructions Dosage Frequency Start Date End Date Duration Status Oxycodone-Acetaminophen 10-325 MG Orally 4 times a day 1 tablet as needed 6h Mar, 28 days Active Marinol 5 mg Orally Twice a day 1 capsule before lunch and supper 12h 28 days Active Zolpidem Tartrate 10 mg TAKE ONE [...]
--- OUTSIDE RECORDS SUMMARY | 2018-05-04 15:34 | XMS REPORT ---
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 Name Role Phone HORACE HIGGINS Unavailable PROBLEMS Type Condition ICD9-CM Code KET07-EF Code Onset Dates Condition Status SNOMED Code Problem Asthma exacerbation J45.901 Active 516333893 Problem Diabetic polyneuropathy associated with type 2 diabetes mellitus E11.42 Active 44720888 Problem Reactive depression F32.9 Active 83317648 Problem Other chronic pain G89.29 Active 23819035 Problem Neuropathy G62.9 Active 687179295 Problem Irritable bowel syndrome with constipation K58.1 Active 441257618 Problem Back pain M54.9 Active 802260997 Problem Low TSH level R94.6 Active 292419851 Problem Migraine without aura and without status migrainosus, not intractable G43.009 Active 496732825 Problem PTSD (post-traumatic stress disorder) F43.10 Active 63236264 Problem Tobacco dependency F17.200 Active 56689357 Problem Annual physical exam Z00.00 Active 016575293 Problem Mixed hyperlipidemia E78.2 Active 038449981 Problem Type 2 diabetes mellitus with diabetic autonomic (poly)neuropathy E11.43 Active 13424877 Problem Diabetes E11.9 Active 86863097 Problem Gastroparesis K31.84 Active 390069155 Problem Anorexia R63.0 Active 19904317 Problem Weight loss R63.4 Active 247210786 Problem 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 Active 028477402 Problem History of colon polyps Z86.010 Active 835740997 Problem Uncomplicated asthma, unspecified asthma severity J45.909 Active 908377585 Problem Primary insomnia F51.01 Active 0174714 ALLERGIES No Information ENCOUNTERS Encounter Location Date Diagnosis [facility] [address] [facility] [id number] [place] [address] Apr, [facility] [address] [address] Mar, [facility] [id number] [place] [address] 46528- 7885 Feb, [facility] [id number] [place] [address] 47370- 2538 Feb, [facility] [id number] [place] [address] 40356- 8562 Feb, [facility] [id number] [place] [address] 20742- 4977 Feb, PTSD (post-traumatic stress disorder) F43.10 [facility] [id number] [place] [address] 40344- 4324 Feb, PTSD (post-traumatic stress disorder) F43.10 [facility] [id number] [place] [address] 77630- 1127 Feb, Pain in left shoulder M25.512 and Other chronic pain G89.29 [facility] [id number] [place] [address] 58221- 8598 Feb, LLQ pain R10.32 and Other dorsalgia M54.89 [facility] [id number] [place] [address] 73356- 4495 Feb, [facility] [id number] [place] [address] 50658- 6694 Feb, Right lower quadrant abdominal pain R10.31 ; Pain in left shoulder M25.512 ; Other chronic pain G89.29 and Encounter for immunization Z23 [facility] [id number] [place] [address] 50490- 9695 Feb, [facility] [id number] [place] [address] 58777- 2054 Jan, Dysfunction of left eustachian tube H69.82 [facility] [id number] [place] [address] 48627- 8140 Jan, [facility] [id number] [place] [address] 71061- 3736 Jan, [facility] [id number] [place] [address] 81847- 8556 Jan, [facility] [id number] [place] [address] 70280- 5014 Jan, [facility] [address] 60107- 3214 Jan, Left upper arm pain M79.622 [facility] [id number] [place] [address] 42174- 4452 Jan, [facility] [address] 66827- 6084 Jan, PTSD (post-traumatic stress disorder) F43.10 and Tobacco dependency F17.200 [facility] [id number] [place] [address] 43686- 3995 Jan, Back pain M54.9 ; Type 2 diabetes mellitus with diabetic autonomic (poly)neuropathy E11.43 ; Neuropathy G62.9 ; Irritable bowel syndrome with constipation K58.1 ; Sprain of other part of left shoulder region, initial encounter S43.492A and Dysfunction of left eustachian tube H69.82 [facility] [id number] [place] [address] 82530- 6540 Jan, [facility] [id number] [place] [address] 43380- 9617 05 Jan, 2018 Neuropathy G62.9 ; LLQ pain R10.32 and Other dorsalgia M54.89 [facility] [address] 92521- 8887 Jan, [facility] [id number] [place] [address] 73124- 3765 Jan, [facility] [id number] [place] [address] 69762- 8888 Dec, Right upper quadrant abdominal pain R10.11 [facility] [id number] [place] [address] 69315- 8949 Dec, PTSD (post-traumatic stress disorder) F43.10 [facility] [address] 43732- 8832 Dec, LLQ pain R10.32 [place] [address] 95735- 3274 Dec, Other dorsalgia M54.89 [place] [address] 50145- 6146 Dec, Neuropathy G62.9 [place] [address] 95399- 8401 Dec, [facility] [address] 94660- 9973 Nov, Irritable bowel syndrome with constipation K58.1 ; Uncomplicated asthma, unspecified asthma severity J45.909 and Type 2 diabetes mellitus with diabetic autonomic (poly)neuropathy E11.43 [facility] [address] [id number] Nov, Dental examination Z01.20 [place] [address] 95613- 1167 Nov, Other dorsalgia M54.89 [facility] [id number] [place] [address] 75495- 9061 Nov, LLQ pain R10.32 ; Low TSH level R94.6 and Gastroparesis K31.84 [place] [address] 06606- 3527 Nov, Anorexia R63.0 [facility] [id number] [place] [address] 25056- 7661 Nov, Asthma exacerbation J45.901 [facility] [address] 33833- 1331 27 Oct, 2017 PTSD (post-traumatic stress disorder) F43.10 [place] [address] 059267- 8812 Oct, [facility] [address] 10680- 0994 19 Oct, 2017 PTSD (post-traumatic stress disorder) F43.10 and Tobacco dependency F17.200 [facility] [address] 837279- 5573 Oct, [facility] [address] 89333- 6432 Oct, Other dorsalgia M54.89 [facility] [address] 46818- 3024 Oct, Anorexia R63.0 [facility] [address] 79629- 6911 September, PTSD (post-traumatic stress disorder) F43.10 [place] [address] 01605- 1820 September, Low TSH level R94.6 [place] [address] 35740- 6069 September, Other dorsalgia M54.89 [place] [address] 17595- 5368 September, Annual physical exam Z00.00 and Migraine without aura and without status migrainosus, not intractable G43.009 [facility] [id number] [place] [address] 16942- 3747 September, Abnormal TSH R94.6 and Dysfunction of left eustachian tube H69.82 [place] [address] 47006- 0431 Aug, [facility] [address] 56821- 0869 Aug, Anorexia R63.0 [facility] [address] [place] [address] [id number] Aug, Dental examination Z01.20 and Xerostomia K11.7 [facility] [id number] [place] [address] 64646- 3784 Aug, Neuropathy G62.9 [facility] [address] 97440- 5217 Aug, [facility] [address] 12610- 8867 Aug, Other dorsalgia M54.89 [facility] [id number] [place] [address] 87179- 1977 Aug, Type 2 diabetes mellitus with diabetic autonomic (poly) neuropathy E11.43 ; Diabetic polyneuropathy associated with type 2 diabetes mellitus E11.42 ; Bronchitis J40 ; Gastroparesis K31.84 and Reactive depression F32.9 [facility] [id number] [place] [address] 45132- 6166 Aug, PTSD (post-traumatic stress disorder) F43.10 [facility] [id number] [place] [address] 33801- 3501 Aug, Other dorsalgia M54.89 and Anorexia R63.0 [facility] [id number] [place] [address] 81894- 1542 Jul, [facility] [id number] [place] [address] 55897- 2115 Jul, Other dorsalgia M54.89 [facility] [address] 59158- 1869 Jul, [facility] [id number] [place] [address] 30301- 3353 Jul, [facility] [address] 45352- 6809 Jul, PTSD (post-traumatic stress disorder) F43.10 [facility] [id number] [place] [address] 14769- 0186 Jul, [facility] [id number] [place] [address] 85671 2546 Jul, [facility] [address] 13534- 3506 Jul, [facility] [address] 92041- 6346 Jul, Anorexia R63.0 [facility] [address] 42757- 1446 Jun, [facility] [address] 46936- 3956 Jun, Vaginal discharge N89.8 ; Visit for gynecologic examination Z01.419 and Pelvic pressure in female R10.2 [facility] [address] 06158- 2926 Jun, [facility] [address] 94409- 1996 Jun, Other dorsalgia M54.89 [facility] [address] 01145 2546 16 Jun, 2017 [facility] [address] 59722 2546 Jun, [facility] [id number] [place] [address] 23318 2546 Jun, [facility] [address] 60920- 4446 May, Back pain M54.9 [facility] [address] 78225- 8406 May, Anorexia R63.0 [facility] [address] [place] [address]- 5647 May, Other dorsalgia M54.89 [facility] [address] 30606- 4451 May, [facility] [address] 74454- 5236 May, Bronchitis J40 [facility] [address] 17280- 7264 May, Type 2 diabetes mellitus with diabetic autonomic (poly) neuropathy E11.43 ; assisted current use of insulin Z79.4 ; Back pain M54.9 and Neuropathy G62.9 [facility] [address] 92551- 6343 May, Left breast mass N63.20 [facility] [address] 04665- 6167 May, [facility] [address] 26563- 2986 Apr, Other dorsalgia M54.89 [facility] [address] 61586- 2498 Apr, Anorexia R63.0 [facility] [address] 10777- 1154 Apr, Anorexia R63.0 [facility] [address] 37244- 1177 Apr, Mass of left breast N63.20 [facility] [id number] [place] [address] 30642- 3423 Apr, [facility] [address] 72508- 9936 Apr, [facility] [address] 20208- 7249 Apr, Diarrhea of presumed infectious origin A09 [facility] [address] [place] [address]- 5007 Apr, Encounter for immunization Z23 [facility] [address] 51298- 2880 Apr, [facility] [id number] [place] [address] 93422- 5694 Mar, Other dorsalgia M54.89 [facility] [address] 64845- 3897 Mar, [facility] [id number] [place] [address] 38764- 9219 Mar, [facility] [address] 12966- 5609 Mar, Anorexia R63.0 [facility] [address] 90884- 7048 Mar, [facility] [address] 78461- 6842 Mar, Other dorsalgia M54.89 [facility] [id number] [place] [address] 77550- 6871 Mar, [facility] [id number] [place] [address] 36053- 8851 Mar, Encounter for immunization Z23 [facility] [id number] [place] [address] 12149- 6921 Feb, Anorexia R63.0 [facility] [id number] [place] [address] 48738- 6666 Feb, Diabetes E11.9 [facility] [address] 65809- 3836 Feb, Back pain M54.9 and Diabetes E11.9 [facility] [id number] [place] [address] 90794- 2113 Feb, Diabetes E11.9 [facility] [address] 25137- 1010 Feb, Neuropathy G62.9 [facility] [address] 86675- 8903 Feb, Encounter for immunization Z23 ; Epigastric pain R10.13 ; Weight loss, abnormal R63.4 and Neuropathy G62.9 [facility] [address] [id number] Feb, [facility] [address] 71001- 1198 Feb, [facility] [address] 91922- 7494 Feb, Intractable vomiting with nausea, unspecified vomiting type R11.2 [facility] [address] 23461 -7165 Feb, Chronic nausea R11.0 [facility] [address] 68598- 2584 Feb, Other dorsalgia M54.89 [facility] [address] 15442- 9602 Jan, [facility] [address] 49056- 1991 Jan, [facility] [address] 69194- 4906 Jan, [facility] [address] 63035- 6577 Jan, [facility] [address] 64098- 3481 Jan, Asthma exacerbation J45.901 ; Bronchitis J40 and Neuropathy G62.9 [facility] [address] 11460- 5035 Jan, Anorexia R63.0 [facility] [address] [place] [address]- 2239 Jan, Other dorsalgia M54.89 [facility] [id number] [place] [address] 78600- 4966 Dec, [facility] [id number] [place] [address] 02379 2546 Dec, [facility] [id number] [place] [address] 52134- 7156 Dec, Anorexia R63.0 [facility] [id number] [place] [address] 15901 2546 Dec, Primary insomnia F51.01 [facility] [address] 58872- 5226 Dec, Other dorsalgia M54.89 [facility] [id number] [place] [address] 25030- 0266 Dec, [facility] [id number] [place] [address] 83774- 1758 Nov, [facility] [id number] [place] [address] 82871- 8546 Nov, [facility] [id number] [place] [address] 43221- 6741 Nov, [facility] [id number] [place] [address] 98963- 4115 Nov, History of colon polyps Z86.010 [facility] [id number] [place] [address] 82500 2543 Nov, Weight loss R63.4 ; Nausea and vomiting, intractability of vomiting not specified, unspecified vomiting type R11.2 and Abnormal LFTs R79.89 [facility] [id number] [place] [address] 70506- 6246 Nov, [facility] [id number] [place] [address] 29706- 6611 Nov, Neuropathy G62.9 and Pain in right knee M25.561 [facility] [id number] [place] [address] 20463- 5253 12 Nov, 2016 Back pain M54.9 [facility] [id number] [place] [address] 27205 2546 10 Nov, 2016 [facility] [id number] [place] [address] 33938- 0767 08 Nov, 2016 Bronchitis J40 [facility] [id number] [place] [address] 64491- 4174 03 Nov, 2016 Weight loss R63.4 [facility] [address] 34049- 1048 16 Oct, 2016 Back pain M54.9 [facility] [id number] [place] [address] 81610- 5795 16 Oct, 2016 [facility] [id number] [place] [address] 21641- 6328 14 Oct, 2016 Back pain M54.9 [facility] [id number] [place] [address] 99200- 8531 13 Oct, 2016 Type 2 diabetes mellitus without complications E11.9 and Bronchitis J40 [facility] [id number] [place] [address] 46858- 2323 05 Oct, 2016 [facility] [id number] [place] [address] 41952 2549 Oct, [facility] [id number] [place] [address] 41065- 1188 September, Gastroparesis K31.84 ; Type 2 diabetes mellitus with diabetic autonomic (poly)neuropathy E11.43 and Neuropathy G62.9 [facility] [address] [place] [address] 84196- 7474 September, Other dorsalgia M54.89 [facility] [id number] [place] [address] 27150- 5319 September, [facility] [address] [place] [address] 48602- 3011 September, [facility] [id number] [place] [address] 87329- 4464 Aug, Gastroparesis K31.84 and Radicular leg pain M54.10 [facility] [id number] [place] [address] 46491- 6358 Aug, Anorexia R63.0 [facility] [id number] [place] [address] 46812- 7633 Aug, Bronchitis J40 [facility] [address] 99325- 0371 Aug, Back pain M54.9 [facility] [id number] [place] [address] 30642- 0760 Aug, Routine gynecological examination Z01.419 ; Routine screening for STI (sexually transmitted infection) Z11.3 and Yeast infection of the vagina B37.3 [facility] [id number] [place] [address] 84083- 2063 Jul, Other dorsalgia M54.89 [facility] [id number] [place] [address] 51430- 1619 Jul, Diabetes E11.9 and Gastroparesis K31.84 [facility] [id number] [place] [address] 94709- 7798 Jun, [facility] [address] [place] [address] 20745- 7878 Jun, Back pain M54.9 [facility] [id number] [place] [address] 40325- 6925 14 Jun, 2016 Neuropathy G62.9 [facility] [address] [place] [address] [id number] 02 Jun, 2016 Encounter for dental examination Z01.20 [facility] [id number] [place] [address] 80647- 7426 Jun, Gastroparesis 536.3 and Anorexia R63.0 [facility] [address] 22939 2546 May, Other dorsalgia M54.89 [facility] [address] 70762 2546 May, Periumbilical abdominal pain R10.33 ; Weight loss R63.4 and Gastroparesis K31.84 [facility] [address] 82233- 4316 May, Back pain M54.9 [facility] [address] 86521 2546 Apr, Anorexia R63.0 [facility] [address] 33653 2546 Apr, Anorexia R63.0 [facility] [address] 45426 2546 Apr, Back pain M54.9 [facility] [address] 83353 2546 Apr, Back pain M54.9 [facility] [id number] [place] [address] 22708 2546 Apr, [facility] [address] 55121 2546 Apr, Bronchitis J40 and Neuropathy G62.9 [facility] [address] 26571 2546 Apr, Neuropathy G62.9 [facility] [id number] [place] [address] 89188 2546 Apr, [facility] [id number] [place] [address] 66309 2546 Apr, Back pain M54.9 [facility] [id number] [place] [address] 74221- 8167 Mar, Type 2 diabetes mellitus with diabetic autonomic (poly) neuropathy E11.43 [facility] [id number] [place] [address] 93208- 5936 Mar, Type 2 diabetes mellitus without complications E11.9 [facility] [id number] [place] [address] 70749- 1706 Mar, Neuropathy G62.9 [facility] [id number] [place] [address] 07825- 6600 Mar, [facility] [address] 51808- 2022 Mar, Breast cancer screening Z12.39 [facility] [address] 70268- 7712 Mar, Other dorsalgia M54.89 [facility] [id number] [place] [address] 83136- 4707 Feb, [facility] [id number] [place] [address] 75193- 3701 Jan, Neuropathy G62.9 ; Type 2 diabetes mellitus with diabetic autonomic (poly)neuropathy E11.43 ; Uncomplicated asthma, unspecified asthma severity J45.909 and Encounter for immunization Z23 [facility] [id number] [place] [address] 27021 2546 Jan, [facility] [id number] [place] [address] 02259 2544 Jan, [facility] [id number] [place] [address] 37931- 1955 Dec, [facility] [id number] [place] [address] 95443- 2549 Dec, [facility] [id number] [place] [address] [phone]- [phone] Nov, [facility] [id number] [place] [address] 62029- 5997 Nov, Back pain M54.9 [facility] [id number] [place] [address] 72466- 5875 Nov, Neuropathy G62.9 ; Mixed hyperlipidemia E78.2 ; Type 2 diabetes mellitus with diabetic autonomic (poly)neuropathy E11.43 and assisted current use of insulin Z79.4 [facility] [id number] [place] [address] [phone]- [phone] Oct, [facility] [id number] [place] [address] [id number]- 9456 Oct, Other dorsalgia M54.89 [facility] [id number] [place] [address] [phone]- 6530 September, Primary insomnia F51.01 [facility] [id number] [place] [address] 45533- 4845 September, [facility] [id number] [place] [address] 94316- 0119 Aug, Other dorsalgia M54.89 [facility] [id number] [place] [address] [phone]- 4294 Jul, [facility] [id number] [place] [address] 53006- 7482 Jul, Other dorsalgia M54.89 [facility] [id number] [place] [address] 02380- 4616 Jul, Diabetes E11.9 ; Back pain M54.9 ; Neuropathy G62.9 and Gastroparesis K31.84 [facility] [id number] [place] [address] 41547- 1499 Jun, [facility] [id number] [place] [address] 01962- 4928 Jun, Other dorsalgia M54.89 [facility] [id number] [place] [address] 52042- 1912 May, [facility] [id number] [place] [address] 83410- 4734 May, Radicular leg pain M54.10 and Other dorsalgia M54.89 [facility] [id number] [place] [address] 80930- [phone] Apr, [facility] [id number] [place] [address] 15249- 5993 Mar, [facility] [id number] [place] [address] 99791- 9569 Mar, [facility] [id number] [place] [address] 67588- 5255 Mar, Radicular leg pain M54.10 [facility] [id number] [place] [address] 31705- 3980 Feb, [facility] [id number] [place] [address] 48447- 4642 Feb, [facility] [id number] [place] [address] 15060- 5546 Feb, [facility] [id number] [place] [address] 19005- 6769 Jan, [facility] [id number] [place] [address] 94989- 4208 Jan, IBS (irritable bowel syndrome) 564.1 [facility] [id number] [place] [address] 66439- 5331 Jan, [facility] [id number] [place] [address] 32253- 6503 Jan, [facility] [id number] [place] [address] 04020- 7734 Jan, Diabetes mellitus without mention of complication, type II or unspecified type, not stated as uncontrolled 250.00 ; Gastroparesis 536.3 and Hypoacusis 389.9 [facility] [address] [address] 0686 Jan, [facility] [id number] [place] [address] 174898- 6095 Jan, [facility] [id number] [place] [address] 60169- 8949 Dec, [facility] [id number] [place] [address] 71316- 3794 Dec, [facility] [id number] [place] [address] 76765- 2662 Dec, [facility] [id number] [place] [address] 95279- 7719 Dec, Back pain 724.5 and Gastroparesis 536.3 [facility] [id number] [place] [address] 49497- 7416 Nov, [facility] [id number] [place] [address] [id number] Nov, Dental examination V72.2 [facility] [id number] [place] [address] 11220- 0934 Nov, [facility] [id number] [place] [address] 35449- 9590 Nov, [facility] [id number] [place] [address] 28109- 9991 Nov, Depressive disorder, not elsewhere classified 311 and No condition on Hepzibah II V71.09 [facility] [id number] [place] [address] 41089- 2954 Nov, Diabetes 250.00 and Symptomatic menopausal or female climacteric states 627.2 [facility] [id number] [place] [address] 48604- 9058 Oct, [facility] [id number] [place] [address] 76590- 3525 Oct, Lumbar strain 847.2 [facility] [id number] [address] Oct, Gastroparesis 536.3 and Unspecified myalgia and myositis 729.1 [facility] [address] [facility] [id number], [place] [address] 7475 Aug, [facility] [address] [facility] [id number], [place] [address] 5891 Aug, [facility] [address] [facility] [id number], [place] [address]- 0135 Jul, [facility] [address] [facility] [id number], [place] [address] 5628 Jul, [facility] [address] [facility] [id number], [place] [address]- 5100 Jul, [facility] [address] [facility] [id number], [place] [address]- 0851 Jul, [facility] [address] [id number], [place] [address] 1408 Jul, [facility] [address] [facility] [id number], [place] [address] 3308 Jun, [facility] [address] [facility] [id number], [place] [address]- 0647 Jun, [facility] [address] [facility] [id number], [place] [address]- 3638 Jun, [facility] [address] [facility] [id number], [place] [address]- 7018 May, [facility] [address] [facility] [id number], [place] [address]- 8063 May, [facility] [address] [facility] [id number], [place] [address]- 8942 Mar, [facility] [address] [id number] [place] [address]- 4219 Mar, [facility] [address] [id number] [place] [address]- 3392 Mar, [facility] [place] [facility] [address] [id number] [place] [address]- 3505 Mar, [facility] [place] [facility] [address] [id number] [place] [address]- 7363 Mar, [facility] [place] [facility] [address] [id number] [place] [address]- 8264 Mar, [facility] [place] [facility] [address] [id number] [place] [address]- 0707 Feb, [facility] [place] [facility] [address] [id number] [place] [address]- 3476 Feb, [facility] [place] [facility] [address] [id number] [place] [address]- 3500 Nov, [facility] [address] [id number] [place] [address]- 2959 Nov, [facility] [place] [facility] [address] [id number] [place] [address]- 5026 Nov, [facility] [address] [id number] [place] [address]- 2545 Oct, [facility] [place] [facility] [address] [id number] [place] [address]- 2967 September, [facility] [place] [facility] [address] [id number] [place] [address]- 3636 Aug, [facility] [place] [facility] [address] [id number] [place] [address]- 1517 15 Aug, 2012 [facility] [place] [facility] [address] [id number] [place] [address]- 9550 Aug, [facility] [place] [facility] [address] [id number] [place] [address]- 1550 Aug, [facility] [address] [id number] [place] [address]- 6844 Aug, [facility] [place] [facility] [address] [id number] [place] [address]- 7452 Aug, [facility] [place] [facility] [address] [id number] [place] [address]- 3300 Aug, [facility] [place] [facility] [address] [id number] [place] [address]- 8695 Aug, [facility] [address] [id number] [place] [address]- 0959 Jul, [facility] [place] [facility] [address] [id number] [place] [address]- 3711 Jul, [facility] [place] [facility] [address] [facility] [id number] [place] [address]- 2698 Jun, [facility] [place] [facility] [address] [id number], [place] [address]- 8006 Jun, [facility] [place] [facility] [address] [id number] [place] [address]- 6845 Jun, [facility] [place] [facility] [address] [facility] [id number] [place] [address]- 9932 Jun, [facility] [place] [facility] [address] [id number], [place] [address]- 0544 Jun, [facility] [place] [facility] [address] [id number], [place] [address]- 5133 Jun, [facility] [place] [facility] [address] [id number] [place] [address]- 0306 Jun, [facility] [place] [facility] [address] [facility] [id number], [place] [address]- 1829 May, [facility] [place] [facility] [address] [facility] [id number] [place] [address]- 5551 May, [facility] [place] [facility] [address] [facility] [id number] [id number] [address] May, [facility] [address] [facility] [id number] [place] [address]- 1710 May, [facility] [address] [facility] [id number], [place] [address]- 5896 Mar, [facility] [address] [facility] [id number], [place] [address]- 2488 Mar, [facility] [address] [facility] [id number] [place] [address]- 1023 Jan, IMMUNIZATIONS No Known Immunizations SOCIAL [...] High blood sugar 2016 Hospitalization History DKA, vomitting-[facility] 03/05/17 Hospitalization History hospital stay at [facility] for stomach issues 2016
--- OUTSIDE RECORDS SUMMARY | 2018-05-04 15:35 | XMS REPORT ---
Author Author DELFIN RACH Organization [facility] Address [address] [place] [address] Care Team Providers Care Manager Nursing Name Role Phone DELFIN RACH Unavailable PROBLEMS Type Condition ICD9-CM Code IPP37-DA Code Onset Dates Condition Status SNOMED Code Problem Asthma exacerbation J45.901 Active 208192590 Problem Diabetic polyneuropathy associated with type 2 diabetes mellitus E11.42 Active 93079813 Problem Reactive depression F32.9 Active 77523387 Problem Other chronic pain G89.29 Active 67621884 Problem Neuropathy G62.9 Active 107971231 Problem Irritable bowel syndrome with constipation K58.1 Active 100168325 Problem Back pain M54.9 Active 780020447 Problem Low TSH level R94.6 Active 875307244 Problem Migraine without aura and without status migrainosus, not intractable G43.009 Active 778255194 Problem PTSD (post-traumatic stress disorder) F43.10 Active 92189744 Problem Tobacco dependency F17.200 Active 84041775 Problem Annual physical exam Z00.00 Active 081616983 Problem Mixed hyperlipidemia E78.2 Active 397960218 Problem Type 2 diabetes mellitus with diabetic autonomic (poly)neuropathy E11.43 Active 63689481 Problem Diabetes E11.9 Active 39526157 Problem Gastroparesis K31.84 Active 915115121 Problem Anorexia R63.0 Active 42213146 Problem Weight loss R63.4 Active 053986245 Problem rn long term care current use of insulin Z79.4 Active 618137221 Problem History of colon polyps Z86.010 Active 312672896 Problem Uncomplicated asthma, unspecified asthma severity J45.909 Active 366583194 Problem Primary insomnia F51.01 Active 3537616 ALLERGIES No Information ENCOUNTERS Encounter Location Date Diagnosis [facility] [address] [facility] [id number] [address] Apr, [facility] [id number] [place] [address] 13392- 3186 Feb, [facility] [id number] [place] [address] 40895- 5536 Feb, PTSD (post-traumatic stress disorder) F43.10 [facility] [id number] [place] [address] 50282- 1705 Feb, PTSD (post-traumatic stress disorder) F43.10 [facility] [id number] [place] [address] 28368- 6322 Feb, Pain in left shoulder M25.512 and Other chronic pain G89.29 [place] [address] 79779- 4267 Feb, LLQ pain R10.32 and Other dorsalgia M54.89 [place] [address] 88268- 4892 Feb, [facility] [address] 79824- 7164 Feb, Right lower quadrant abdominal pain R10.31 ; Pain in left shoulder M25.512 ; Other chronic pain G89.29 and Encounter for immunization Z23 [facility] [id number] [place] [address] 52275- 3173 Feb, [facility] [id number] [place] [address] 99829- 1660 Jan, Dysfunction of left eustachian tube H69.82 [facility] [id number] [place] [address] 61166- 4621 Jan, [facility] [address] 98297- 3034 Jan, [facility] [id number] [place] [address] 29516- 9079 Jan, [facility] [address] 70941- 1247 Jan, [facility] [id number] [place] [address] 45152- 5910 Jan, Left upper arm pain M79.622 [facility] [id number] [place] [address] 63069- 4330 Jan, [facility] [id number] [place] [address] 12226- 5351 Jan, PTSD (post-traumatic stress disorder) F43.10 and Tobacco dependency F17.200 [facility] [id number] [place] [address] 25049- 4516 Jan, Back pain M54.9 ; Type 2 diabetes mellitus with diabetic autonomic (poly)neuropathy E11.43 ; Neuropathy G62.9 ; Irritable bowel syndrome with constipation K58.1 ; Sprain of other part of left shoulder region, initial encounter S43.492A and Dysfunction of left eustachian tube H69.82 [place] [id number] [place] [address] 47815- 9235 Jan, [facility] [address] 43829- 6322 05 Jan, 2018 Neuropathy G62.9 ; LLQ pain R10.32 and Other dorsalgia M54.89 [facility] [id number] [place] [address] 35053- 0745 Jan, [facility] [id number] [place] [address] 04211- 2412 Jan, [facility] [id number] [place] [address] 43211- 4336 Dec, Right upper quadrant abdominal pain R10.11 [place] [id number] [place] [address] 78195- 7389 Dec, PTSD (post-traumatic stress disorder) F43.10 [facility] [id number] [place] [address] 76770- 3892 Dec, LLQ pain R10.32 [facility] [id number] [place] [address] 28255- 4373 Dec, Other dorsalgia M54.89 [facility] [id number] [place] [address] 84907- 6368 Dec, Neuropathy G62.9 [facility] [address] 13010- 1435 Dec, [facility] [address] 00711- 3401 Nov, Irritable bowel syndrome with constipation K58.1 ; Uncomplicated asthma, unspecified asthma severity J45.909 and Type 2 diabetes mellitus with diabetic autonomic (poly)neuropathy E11.43 [facility] [id number] [place] [address] [id number] Nov, Dental examination Z01.20 [place] [address] 44469- 9999 Nov, Other dorsalgia M54.89 [place] [address] 03610- 7739 Nov, LLQ pain R10.32 ; Low TSH level R94.6 and Gastroparesis K31.84 [place] [id number] [place] [address] 00391- 5266 Nov, Anorexia R63.0 [place] [id number] [place] [address] 81512- 1740 Nov, Asthma exacerbation J45.901 [facility] [address] 28957- 5034 Oct, PTSD (post-traumatic stress disorder) F43.10 [facility] [id number] [place] [address] 36570- 3519 Oct, [facility] [address] 07629- 1742 Oct, PTSD (post-traumatic stress disorder) F43.10 and Tobacco dependency F17.200 [facility] [id number] [place] [address] 43615- 2705 Oct, [place] [id number] [place] [address] 2527 Oct, Other dorsalgia M54.89 [place] [address] 433188- 4874 Oct, Anorexia R63.0 [place] [address] 867134- 0907 September, PTSD (post-traumatic stress disorder) F43.10 [place] [address] 81741- 146 September, Low TSH level R94.6 [place] [address] 11950- 2172 September, Other dorsalgia M54.89 [place] [address] 52190- 1022 September, Annual physical exam Z00.00 and Migraine without aura and without status migrainosus, not intractable G43.009 [place] [id number] [place] [address] 19335- 6875 September, Abnormal TSH R94.6 and Dysfunction of left eustachian tube H69.82 [place] [id number] [place] [address] 79860- 0950 Aug, [facility] [id number] [place] [address] 26654- 1730 Aug, Anorexia R63.0 [facility] [id number] [place] [address] [id number] Aug, Dental examination Z01.[address] [facility] [id number] [place] [address] 06432- 5481 Aug, Neuropathy G62.9 [facility] [id number] [place] [address] 92156 2546 Aug, [facility] [address] 13963 2546 Aug, Other dorsalgia M54.89 [facility] [id number] [place] [address] 21556 2546 Aug, Type 2 diabetes mellitus with diabetic autonomic (poly) neuropathy E11.43 ; Diabetic polyneuropathy associated with type 2 diabetes mellitus E11.42 ; Bronchitis J40 ; Gastroparesis K31.84 and Reactive depression F32.9 [facility] [address] 38056 2546 Aug, PTSD (post-traumatic stress disorder) F43.10 [facility] [address] 95357 2546 Aug, Other dorsalgia M54.[address] [facility] [id number] [place] [address] 17560 2546 Jul, [facility] [address] 98718 2546 Jul, Other dorsalgia M54.89 [facility] [id number] [place] [address] 40809 2546 Jul, [facility] [id number] [place] [address] 88870 2546 Jul, [facility] [id number] [place] [address] 57689 2546 Jul, PTSD (post-traumatic stress disorder) F43.10 [facility] [id number] [place] [address] 86358 2546 Jul, [facility] [id number] [place] [address] 45195 [address] Jul, [facility] [address] [place] [address]- 7635 Jul, [facility] [address] 14957- 6046 Jul, Anorexia R63.0 [facility] [address] 78861- 0456 Jun, [facility] [address] 19747- 8616 Jun, Vaginal discharge N89.8 ; Visit for gynecologic examination Z01.419 and Pelvic pressure in female R10.2 [facility] [address] 69607- 6906 Jun, [facility] [address] 45664- 7656 Jun, Other dorsalgia M54.89 [facility] [address] 96027- 8676 Jun, [facility] [id number] [place] [address] 69058- 4393 Jun, [facility] [address] 01018- 8190 Jun, [facility] [id number] [place] [address] 77577- 1648 May, Back pain M54.9 [facility] [address] 19478 2546 May, Anorexia R63.0 [facility] [id number] [place] [address] 83150- 3986 May, Other dorsalgia M54.89 [facility] [id number] [place] [address] 57488- 2536 May, [facility] [address] 07401- 1396 May, Bronchitis J40 [facility] [id number] [place] [address] 75562- 1734 May, Type 2 diabetes mellitus with diabetic autonomic (poly) neuropathy E11.43 ; 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 ; Back pain M54.[address] [facility] [address] 88840- 3372 May, Left breast mass N63.20 [facility] [address] 72494- 3009 May, [facility] [address] 40346- 3368 Apr, Other dorsalgia M54.89 [place] [address] 25541- 2960 Apr, Anorexia R63.0 [place] [address] 10376- 8547 Apr, Anore[address] R63.0 [facility] [address] 24607- 4948 Apr, Mass of left breast N63.20 [facility] [address] 81830- 7717 Apr, [facility] [id number] [place] [address] 29493- 7516 Apr, [place] [address] 16968- 7898 Apr, Diarrhea of presumed infectious origin A09 [place] [address] 86909- 2192 Apr, Encounter for immunization Z23 [facility] [address] 17538- 9232 Apr, [facility] [address] 44806- 2950 Mar, Other dorsalgia M54.89 [facility] [id number] [place] [address] 98016- 3695 Mar, [facility] [address] 06656- 3317 Mar, [facility] [address] 39758- 3003 Mar, Anorexia R63.0 [facility] [address] 22830- 2219 Mar, [facility] [address] 16436- 5622 Mar, Other dorsalgia M54.89 [facility] [address] 94087- 7072 Mar, [facility] [address] 37405- 1958 Mar, Encounter for immunization Z23 [facility] [address] 90365- 9771 Feb, Anorexia R63.0 [facility] [address] 63745- 5666 Feb, Diabetes E11.9 [facility] [address] 13496- 6183 Feb, Back pain M54.[address] [facility] [id number] [place] [address] 96983- 6168 Feb, Diabetes E11.9 [facility] [id number] [place] [address] 89225- 2546 Feb, Neuropathy G62.9 [facility] [id number] [place] [address] 34558- 6128 Feb, Encounter for immunization Z23 ; Epigastric pain R10.13 ; Weight loss, abnormal R63.4 and Neuropathy G62.9 [facility] [id number] [place] [address] [id number] Feb, [facility] [id number] [place] [address] 82456- 8109 Feb, [facility] [id number] [place] [address] 09790- 6053 Feb, Intractable vomiting with nausea, unspecified vomiting type R11.2 [facility] [id number] [place] [address] 39162 -5852 Feb, Chronic nausea R11.0 [facility] [id number] [place] [address] 71581- 3269 Feb, Other dorsalgia M54.89 [facility] [id number] [place] [address] 16224- 5153 Jan, [facility] [address] 85173- 6918 Jan, [facility] [id number] [place] [address] 36035- 0664 Jan, [facility] [address] 31777- 8712 Jan, [facility] [id number] [place] [address] 13883- 4282 Jan, Asthma exacerbation J45.901 ; Bronchitis J40 and Neuropathy G62.9 [facility] [id number] [place] [address] 76850- 4073 Jan, Anorexia R63.0 [facility] [id number] [place] [address] 99050- 1244 Jan, Other dorsalgia M54.89 [facility] [id number] [place] [address] 49054- 9491 Dec, [facility] [id number] [place] [address] 20724- 8146 Dec, [facility] [address] [id number] [address]- 2430 15 Dec, [address] [facility] [id number] [place] [address] 62718- 1533 Dec, Primary insomnia F51.01 [facility] [id number] [place] [address] 82765- 8254 Dec, Other dorsalgia M54.89 [facility] [id number] [place] [address] 72326- 2070 Dec, [facility] [id number] [place] [address] 83615- 2854 Nov, [facility] [id number] [place] [address] 67144- 7089 Nov, [facility] [id number] [place] [address] 08285- 1548 Nov, [facility] [id number] [place] [address] 65552- 2181 Nov, History of colon polyps Z86.010 [facility] [id number] [place] [address] 44428- 0867 Nov, Weight loss R63.4 ; Nausea and vomiting, intractability of vomiting not specified, unspecified vomiting type R11.2 [address] [facility] [id number] [place] [address] 49299- 2792 Nov, [facility] [id number] [place] [address] 85823- 0521 Nov, Neuropathy G62.9 and Pain in right knee M25.561 [facility] [id number] [place] [address] 05329- 6772 Nov, Back pain M54.9 [facility] [id number] [place] [address] 61597- 4505 Nov, [facility] [id number] [place] [address] 14082- 4263 08 Nov, [address] [facility] [id number] [place] [address] 33668- 6176 03 Nov, [address] [facility] [id number] [place] [address] 82446- 1300 Oct, Back pain M54.9 [facility] [id number] [place] [address] 10859- 5531 Oct, [facility] [id number] [place] [address] 87293- 9302 Oct, Back pain M54.9 [facility] [id number] [place] [address] 63735- 0593 Oct, Type 2 diabetes mellitus without complications E11.[address] [facility] [id number] [place] [address] 66921- 9140 Oct, [facility] [id number] [place] [address] 88242- 6855 Oct, [facility] [id number] [place] [address] 36582- 2894 September, Gastroparesis K31.84 ; Type 2 diabetes mellitus with diabetic autonomic (poly)neuropathy E11.[address] [facility] [id number] [place] [address] 99413- 2495 September, Other dorsalgia M54.89 [facility] [id number] [place] [address] 59518- 1066 September, [facility] [id number] [place] [address] 95157- 9431 September, [facility] [id number] [place] [address] 57925- 7322 Aug, Gastroparesis K31.84 and Radicular leg pain M54.10 [facility] [id number] [place] [address] 86070- 2472 Aug, Anore[address] R63.0 [facility] [address] 73846- 9080 Aug, Bronchitis J40 [facility] [id number] [place] [address] 33535- 4550 Aug, Back pain M54.9 [facility] [address] 20667- 2212 Aug, Routine gynecological examination Z01.419 ; Routine screening for STI (sexually transmitted infection) Z11.3 and Yeast infection of the vagina B37.3 [facility] [id number] [place] [address] 77507- 2036 Jul, Other dorsalgia M54.89 [facility] [address] 54197- 9701 Jul, Diabetes E11.[address] [facility] [address] 75558- 7208 Jun, [facility] [address] 11426- 3101 Jun, Back pain M54.9 [facility] [id number] [place] [address] 06461- 2448 14 Jun, 2016 Neuropathy G62.9 [facility] [address] [id number] 02 Jun, 2016 Encounter for dental examination Z01.20 [facility] [address] 13599- 4912 Jun, Gastroparesis 536.[address] [facility] [address] [id number] [place] [address] [phone]- 4845 May, Other dorsalgia M54.89 [facility] [address] [place] [address] May, Periumbilical abdominal pain R10.33 ; Weight loss R63.[address] [facility] [address] [address] May, Back pain M54.9 [facility] [address] [address] Apr, [address] [facility] [address] [address] Apr, [address] [facility] [address] [address] 16 Apr, [address] [facility] [address] [address]46 15 Apr, [address] [facility] [address] [address] Apr, [facility] [address] [address] 2546 Apr, Bronchitis J40 and Ne[address].9 [facility] [address] [place] [id number] [place] [id number] 2546 Apr, Neuropathy G62.9 [facility] [address] [address]46 05 Apr, 2016 [facility] [address] [place] [id number] [place] [address] 2546 Apr, Back pain M54.9 [facility] [address] [address] 2546 30 Mar, 2016 Type 2 diabetes mellitus with diabetic autonomic (poly) neuropathy E11.43 [facility] [address] [place] [id number] [place] [address] 2546 28 Mar, 2016 Type 2 diabetes mellitus without complications E11.9 [place] [address] [place] [id number] [place] [address] 57089- 2853 Mar, Ne[address] G62.9 [facility] [address] [place] [id number] [place] [address] 78165- 6706 Mar, [facility] [address] [place] [id number] [place] [address] 63677- 5762 Mar, Breast cancer screening Z12.39 [facility] [address] [place] [id number] [place] [address]48- 1407 Mar, Other dorsalgia M54.89 [facility] [address] [place] [id number] [place] [address] 10161- 6552 Feb, [facility] [address] [id number] [place] [address] 8[address]80- 2810 30 Jan, 2016 Neuropathy G62.9 ; Type 2 diabetes mellitus with diabetic autonomic (poly)neuropathy E11.43 ; Uncomplicated asthma, unspecified asthma severity J45.909 and Encounter for immunization Z23 [facility] [address] [place] [id number] [place] [phone]- 8859 Jan, [place] [address] [place] [id number] [place] [address] [phone]- [address]009 Jan, [facility] [address] [place] [id number] [place] [address]- [address]40 Dec, [facility] [id number] [place] [address] 11456- 4226 Dec, [facility] [address] [place] [id number] [place] [address] 25293- 5480 Nov, [facility] [facility] [id number] [place] [address] 67274- 5079 Nov, Back pain M54.9 [facility] [id number] [place] [address] 80598- 0148 Nov, Neuropathy G62.9 ; Mixed hyperlipidemia E78.2 ; Type 2 diabetes mellitus with diabetic autonomic (poly)neuropathy E11.43 and rn long term care current use of insulin Z79.4 [facility] [id number] [place] [address] 52205- 1465 Oct, [facility] [id number] [place] [address] 81075- 0246 Oct, Other dorsalgia M54.89 [facility] [id number] [place] [address] 88576- 2517 September, Primary insomnia F51.01 [facility] [id number] [place] [address] 59787- 7055 September, [facility] [address] [address]- 1997 Aug, Other dorsalgia M54.89 [facility] [id number] [place] [address] 75472- 7748 Jul, [facility] [address] 87071- 8716 Jul, Other dorsalgia M54.89 [facility] [id number] [place] [address] 67238- 4568 Jul, Diabetes E11.9 ; Back pain M54.9 ; Neuropathy G62.[address] [facility] [id number] [place] [address] 10051- 1158 Jun, [facility] [id number] [place] [address] 68475- 2207 Jun, Other dorsalgia M54.89 [facility] [id number] [place] [address] 33714- 5073 May, [facility] [id number] [place] [address] 79762- 3725 May, Radicular leg pain M54.10 and Other dorsalgia M54.89 [facility] [id number] [place] [address] 47278- 8418 Apr, [facility] [address] [address] Mar, [facility] [id number] [place] [address] 87730- 5085 Mar, [facility] [id number] [place] [address] 22913- 6174 Mar, Radicular leg pain M54.10 [facility] [id number] [place] [address] 41851- 1211 Feb, [facility] [id number] [place] [address] 68270- 0738 Feb, [facility] [id number] [place] [address] 12515- 8370 Feb, [facility] [id number] [place] [address] 45432- 5331 Jan, [facility] [id number] [place] [address] 46088- 7342 Jan, IBS (irritable bowel syndrome) 564.1 [facility] [id number] [place] [address] 44988- 7346 Jan, [facility] [id number] [place] [address] 87053- 1129 Jan, [facility] [id number] [place] [address] 09392- 2231 Jan, Diabetes mellitus without mention of complication, type II or unspecified type, not stated as uncontrolled 250.00 ; Gastroparesis 536.[address] [facility] [id number] [place] [address] 35127- 8249 Jan, [facility] [id number] [place] [address] 18282- 8248 Jan, [facility] [id number] [place] [address] 32112- 2093 Dec, [facility] [address] [address] 6947 Dec, [facility] [id number] [place] [address] 21084- 8683 Dec, [facility] [address] [address]- 0127 Dec, Back pain 724.[address] [facility] [id number] [place] [address] 17944- 3540 Nov, [facility] [id number] [place] [address] [id number] Nov, Dental examination V72.2 [facility] [id number] [place] [address] 99005- 1520 Nov, [facility] [id number] [place] [address] 88540- 5362 Nov, [facility] [id number] [place] [address] 94359- 2109 Nov, Depressive disorder, not elsewhere classified 311 and No condition on Malcolm II V71.09 [facility] [address] [address]- 3083 Nov, Diabetes 250.00 and Symptomatic menopausal or female climacteric states 627.2 [facility] [address] [address]- 5267 Oct, [facility] [id number] [address]- 6100 Oct, Lumbar strain 847.2 [facility] [address] [address]- 8817 Oct, Gastroparesis 536.3 and Unspecified myalgia and myositis 729.1 [facility] [id number] [place] [address] 98771- 2466 14 Aug, 2014 [facility] [place] [facility] [address] [id number] [place] [address]- 4786 Aug, [facility] [place] [facility] [address] [id number] [place] [address]- 8293 Jul, [facility] [place] [facility] [address] [id number] [place] [address]- 8621 Jul, [facility] [place] [facility] [address] [id number] [place] [address]- 4359 Jul, [facility] [place] [facility] [address] [id number] [place] [address]- 2668 Jul, [facility] [place] [facility] [address] [id number] [place] [address]- 2072 Jul, [facility] [place] [facility] [address] [id number] [place] [address]- 6694 Jun, [facility] [place] [facility] [address] [id number] [place] [address]- 6773 Jun, [facility] [place] [facility] [address] [id number] [place] [address]- 9137 Jun, [facility] [place] [facility] [address] [id number] [place] [address]- 9859 May, [facility] [place] [facility] [address] [id number] [place] [address]- 2871 May, [facility] [place] [facility] [address] [id number] [place] [address]- 2966 Mar, [facility] [place] [facility] [address] [id number] [place] [address]- 1942 Mar, [facility] [place] [facility] [address] [id number] [place] [address]- 6489 Mar, [facility] [place] [facility] [address] [id number] [place] [address]- 6968 Mar, [facility] [place] [facility] [address] [id number] [place] [address]- 7818 Mar, [facility] [address] [id number] [place] [address]- 0539 Mar, [facility] [place] [facility] [address] [id number] [place] [address]- 9665 Feb, [facility] [address] [id number] [place] [address]- 8517 Feb, [facility] [address] [id number] [place] [address]- 6143 Nov, [facility] [address] [id number] [place] [address]- 6560 Nov, [facility] [address] [id number] [place] [address]- 8835 Nov, [facility] [address] [id number] [place] [address]- 2755 Oct, [facility] [address] [id number] [place] [address]- 3465 September, [facility] [address] [id number] [place] [address]- 8232 Aug, [facility] [address] [id number] [place] [address]- 8610 Aug, [facility] [place] [facility] [address] [id number] [place] [address]- 3824 Aug, [facility] [place] [facility] [address] [id number] [place] [address]- 1774 Aug, [facility] [place] [facility] [address] [id number] [place] [address]- 4699 Aug, [facility] [place] [facility] [address] [id number] [place] [address]- 2526 Aug, [facility] [place] [facility] [address] [id number] [place] [address]- 8873 Aug, [facility] [address] [id number] [place] [address]- 6013 Aug, [facility] [place] [facility] [address] [id number] [place] [address]- 6233 Jul, [facility] [place] [facility] [address] [id number] [place] [address]- 2837 Jul, [facility] [place] [facility] [address] [id number] [place] [address]- 7028 Jun, [facility] [place] [facility] [address] [id number] [place] [address]- 0939 Jun, [facility] [place] [facility] [address] [id number] [place] [address]- 2432 Jun, [facility] [place] [facility] [address] [id number] [place] [address]- 3221 08 Jun, 2012 [facility] [place] [facility] [address] [id number] [place] [address]- 3532 Jun, [facility] [place] [facility] [address] [id number] [place] [address]- 3489 07 Jun, 2012 [facility] [place] [facility] [address] [id number] [place] [address]- 0321 Jun, [facility] [place] [facility] [address] [id number] [place] [address]- 7130 May, [facility] [place] [facility] [address] [id number] [place] [address]- 4624 May, [facility] [place] [facility] [address] [id number] [place] [address]- 9178 May, [facility] [place] [facility] [address] [id number] [place] [address]- 1119 May, [facility] [place] [facility] [address] [id number] [place] [address]- 9108 Mar, [facility] [place] [facility] [address] [facility] [id number] [place] [address]- 4[address] Mar, [facility] [address] [facility] [id number] [place] [id number] [address] Jan, IMMUNIZATIONS No Known Immunizations SOCIAL HISTORY Never Assessed REASON FOR VISIT clarification PLAN OF CARE VITAL SIGNS MEDICATIONS Medication Instructions Dosage Frequency Start Date End Date Duration Status Wellbutrin SR 100 mg Orally twice a day 1 tablet 12h 30 days Active RESULTS No Results [...] vomitting-[facility] 03/05/17 Hospitalization History hospital stay at [facility] for stomach issues 2016
--- OUTSIDE RECORDS SUMMARY | 2018-05-04 15:35 | XMS REPORT ---
Author Author DELFIN RACH Organization [facility] Address [address] [place] [address] Care Team Providers Care Dietetic Technician Registered Name Role Phone DELFIN RACH Unavailable PROBLEMS Type Condition ICD9-CM Code EOX57-IN Code Onset Dates Condition Status SNOMED Code Problem Asthma exacerbation J45.901 Active 204166435 Problem Diabetic polyneuropathy associated with type 2 diabetes mellitus E11.42 Active 80761248 Problem Reactive depression F32.9 Active 65513386 Problem Other chronic pain G89.29 Active 30619272 Problem Neuropathy G62.9 Active 350670372 Problem Irritable bowel syndrome with constipation K58.1 Active 347213453 Problem Back pain M54.9 Active 099845077 Problem Low TSH level R94.6 Active 220986501 Problem Migraine without aura and without status migrainosus, not intractable G43.009 Active 924639589 Problem PTSD (post-traumatic stress disorder) F43.10 Active 41180145 Problem Tobacco dependency F17.200 Active 49851661 Problem Annual physical exam Z00.00 Active 045160714 Problem Mixed hyperlipidemia E78.2 Active 864856730 Problem Type 2 diabetes mellitus with diabetic autonomic (poly)neuropathy E11.43 Active 26122256 Problem Diabetes E11.9 Active 44393513 Problem Gastroparesis K31.84 Active 227505018 Problem Anorexia R63.0 Active 48980756 Problem Weight loss R63.4 Active 409989867 Problem 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 [address] [facility] [id number] [address] Apr, [facility] [id number] [place] [address] 22081- 4366 Feb, [facility] [id number] [place] [address] 59354- 9665 Feb, PTSD (post-traumatic stress disorder) F43.10 [facility] [id number] [place] [address] 43050- 5081 Feb, PTSD (post-traumatic stress disorder) F43.10 [facility] [id number] [place] [address] 69384- 1358 Feb, Pain in left shoulder M25.512 and Other chronic pain G89.29 [place] [address] 92853- 4413 Feb, LLQ pain R10.32 and Other dorsalgia M54.89 [place] [address] 23046- 0135 Feb, [facility] [address] 12484- 8040 Feb, Right lower quadrant abdominal pain R10.31 ; Pain in left shoulder M25.512 ; Other chronic pain G89.29 and Encounter for immunization Z23 [facility] [id number] [place] [address] 82285- 8646 Feb, [facility] [id number] [place] [address] 75077- 5027 Jan, Dysfunction of left eustachian tube H69.82 [facility] [id number] [place] [address] 53330- 4108 Jan, [facility] [address] 91254- 8142 Jan, [facility] [id number] [place] [address] 61476- 0975 Jan, [facility] [address] 42409- 3821 Jan, [facility] [address] [place] [address] 71803- 7437 Jan, Left upper arm pain M79.622 [facility] [id number] [place] [address] 83559- 4704 Jan, [facility] [id number] [place] [address] 61228- 2399 Jan, PTSD (post-traumatic stress disorder) F43.10 and Tobacco dependency F17.200 [facility] [id number] [place] [address] 79486- 5821 Jan, Back pain M54.9 ; Type 2 diabetes mellitus with diabetic autonomic (poly)neuropathy E11.43 ; Neuropathy G62.9 ; Irritable bowel syndrome with constipation K58.1 ; Sprain of other part of left shoulder region, initial encounter S43.492A and Dysfunction of left eustachian tube H69.82 [place] [id number] [place] [address] 19755- 5532 Jan, [facility] [address] 80626- 0278 05 Jan, 2018 Neuropathy G62.9 ; LLQ pain R10.32 and Other dorsalgia M54.89 [facility] [id number] [place] [address] 69439- 0656 Jan, [facility] [id number] [place] [address] 94561- 9855 Jan, [facility] [id number] [place] [address] 73805- 5653 Dec, Right upper quadrant abdominal pain R10.11 [place] [id number] [place] [address] 50426- 1420 Dec, PTSD (post-traumatic stress disorder) F43.10 [facility] [id number] [place] [address] 54600- 8216 Dec, LLQ pain R10.32 [facility] [id number] [place] [address] 64268- 3033 Dec, Other dorsalgia M54.89 [facility] [id number] [place] [address] 39435- 4107 Dec, Neuropathy G62.9 [facility] [address] 84815- 3137 Dec, [facility] [address] 14838- 5285 Nov, Irritable bowel syndrome with constipation K58.1 ; Uncomplicated asthma, unspecified asthma severity J45.909 and Type 2 diabetes mellitus with diabetic autonomic (poly)neuropathy E11.43 [facility] [id number] [place] [address] [id number] Nov, Dental examination Z01.20 [place] [address] 04215- 2106 Nov, Other dorsalgia M54.89 [place] [address] 50390- 6132 Nov, LLQ pain R10.32 ; Low TSH level R94.6 and Gastroparesis K31.84 [place] [id number] [place] [address] 40972- 7561 Nov, Anorexia R63.0 [place] [id number] [place] [address] 28916- 4459 Nov, Asthma exacerbation J45.901 [facility] [address] 63638- 7412 Oct, PTSD (post-traumatic stress disorder) F43.10 [facility] [id number] [place] [address] 97800- 5871 Oct, [facility] [address] 23413- 5186 Oct, PTSD (post-traumatic stress disorder) F43.10 and Tobacco dependency F17.200 [facility] [id number] [place] [address] 15584- 7424 Oct, [place] [address] [place] 0263 Oct, Other dorsalgia M54.89 [place] [address] 484329- 6133 Oct, Anorexia R63.0 [place] [address] 944580- 6581 September, PTSD (post-traumatic stress disorder) F43.10 [place] [address] 71716- 866 September, Low TSH level R94.6 [place] [address] 36146- 6846 September, Other dorsalgia M54.89 [place] [address] 76963- 3039 September, Annual physical exam Z00.00 and Migraine without aura and without status migrainosus, not intractable G43.009 [place] [id number] [place] [address] 19984- 0791 September, Abnormal TSH R94.6 and Dysfunction of left eustachian tube H69.82 [place] [id number] [place] [address] 31895- 5545 Aug, [facility] [id number] [place] [address] 86788- 4632 Aug, Anorexia R63.0 [facility] [id number] [place] [address] [id number] Aug, Dental examination Z01.[address] [facility] [id number] [place] [address] 75602- 1900 Aug, Neuropathy G62.9 [facility] [id number] [place] [address] 32288 2546 Aug, [facility] [address] 06300 2546 Aug, Other dorsalgia M54.89 [facility] [id number] [place] [address] 50250 2546 Aug, Type 2 diabetes mellitus with diabetic autonomic (poly) neuropathy E11.43 ; Diabetic polyneuropathy associated with type 2 diabetes mellitus E11.42 ; Bronchitis J40 ; Gastroparesis K31.84 and Reactive depression F32.9 [facility] [address] 37971 2546 Aug, PTSD (post-traumatic stress disorder) F43.10 [facility] [address] 05065 2546 Aug, Other dorsalgia M54.[address] [facility] [id number] [place] [address] 70690 2546 Jul, [facility] [address] 69054 2546 Jul, Other dorsalgia M54.89 [facility] [id number] [place] [address] 79241 2546 Jul, [facility] [id number] [place] [address] 78454 2546 Jul, [facility] [id number] [place] [address] 26207 2546 Jul, PTSD (post-traumatic stress disorder) F43.10 [facility] [id number] [place] [address] 59862 2546 Jul, [facility] [id number] [place] [address] 74406 2546 Jul, [facility] [address] [place] [address]- 9531 Jul, [facility] [address] 65181- 1546 Jul, Anorexia R63.0 [facility] [address] 45233- 7596 Jun, [facility] [address] 04633- 9726 Jun, Vaginal discharge N89.8 ; Visit for gynecologic examination Z01.419 and Pelvic pressure in female R10.2 [facility] [address] 23536- 8516 Jun, [facility] [address] 38956- 9926 Jun, Other dorsalgia M54.89 [facility] [address] 82337- 9246 Jun, [facility] [id number] [place] [address] 42232- 3252 Jun, [facility] [address] 25354- 4074 Jun, [facility] [id number] [place] [address] 04927- 6492 May, Back pain M54.9 [facility] [address] 92294 2546 May, Anorexia R63.0 [facility] [id number] [place] [address] 11240- 2126 May, Other dorsalgia M54.89 [facility] [id number] [place] [address] 86242- 1486 May, [facility] [address] 05477- 7896 May, Bronchitis J40 [facility] [id number] [place] [address] 78696- 9245 May, Type 2 diabetes mellitus with diabetic autonomic (poly) neuropathy E11.43 ; snf current use of insulin Z79.4 ; Back pain M54.[address] [facility] [address] 26529- 6140 May, Left breast mass N63.20 [facility] [address] 82768- 7211 May, [facility] [address] 03692- 4308 Apr, Other dorsalgia M54.89 [place] [address] 28376- 0668 Apr, Anorexia R63.0 [place] [address] 43129- 8011 Apr, Anorexia R63.0 [facility] [address] 36286- 1627 Apr, Mass of left breast N63.20 [facility] [address] 80476- 1986 Apr, [facility] [id number] [place] [address] 73725- 2996 Apr, [place] [address] 97039- 3073 Apr, Diarrhea of presumed infectious origin A09 [place] [address] 27797- 9661 Apr, Encounter for immunization Z23 [facility] [address] 86457- 9328 Apr, [facility] [address] 81757- 9307 Mar, Other dorsalgia M54.89 [facility] [id number] [place] [address] 74111- 4435 Mar, [facility] [address] 47111- 4834 Mar, [facility] [address] 18969- 3680 Mar, Anorexia R63.0 [facility] [address] 00937- 4306 Mar, [facility] [address] 02839- 2264 Mar, Other dorsalgia M54.89 [facility] [address] 88754- 9040 Mar, [facility] [address] 20927- 3990 Mar, Encounter for immunization Z23 [facility] [address] 38356- 2335 Feb, Anorexia R63.0 [facility] [address] 34949- 0316 Feb, Diabetes E11.9 [facility] [address] 15985- 6911 Feb, Back pain M54.[address] [facility] [id number] [place] [address] 10053- 8112 Feb, Diabetes E11.9 [facility] [id number] [place] [address] 41806- 6830 Feb, Neuropathy G62.9 [facility] [id number] [place] [address] 34883- 4649 Feb, Encounter for immunization Z23 ; Epigastric pain R10.13 ; Weight loss, abnormal R63.4 and Neuropathy G62.9 [facility] [id number] [place] [address] [id number] Feb, [facility] [id number] [place] [address] 78636- 9218 Feb, [facility] [id number] [place] [address] 56592- 9062 Feb, Intractable vomiting with nausea, unspecified vomiting type R11.2 [facility] [id number] [place] [address] 96650 -2353 Feb, Chronic nausea R11.0 [facility] [id number] [place] [address] 29817- 1280 Feb, Other dorsalgia M54.89 [facility] [id number] [place] [address] 42359- 8011 Jan, [facility] [address] 74291- 0811 Jan, [facility] [id number] [place] [address] 00151- 4259 Jan, [facility] [address] 95680- 1988 Jan, [facility] [id number] [place] [address] 29842- 9294 Jan, Asthma exacerbation J45.901 ; Bronchitis J40 and [address] G62.9 [facility] [id number] [place] [address] 68595- 5625 Jan, Anorexia R63.0 [facility] [id number] [place] [address] 34985- 2763 Jan, Other dorsalgia M54.89 [facility] [id number] [place] [address] 89916- 8163 Dec, [facility] [id number] [place] [address] 37527- 3368 Dec, [facility] [address] [address]- 3682 15 Dec, [address] [facility] [id number] [place] [address] 14989- 9369 Dec, Primary insomnia F51.01 [facility] [id number] [place] [address] 83274- 5601 Dec, Other dorsalgia M54.89 [facility] [id number] [place] [address] 28308- 1360 Dec, [facility] [id number] [place] [address] 15989- 8327 Nov, [facility] [id number] [place] [address] 84279- 2031 Nov, [facility] [id number] [place] [address] 57801- 1974 Nov, [facility] [id number] [place] [address] 58732- 9589 Nov, History of colon polyps Z86.010 [facility] [id number] [place] [address] 11331- 0960 Nov, Weight loss R63.4 ; Nausea and vomiting, intractability of vomiting not specified, unspecified vomiting type R11.2 [address] [facility] [address] [place] [address] 61239- 8944 Nov, [facility] [id number] [place] [address] 07909- 1230 Nov, Neuropathy G62.9 and Pain in right knee M25.561 [facility] [id number] [place] [address] 12703- 0752 Nov, Back pain M54.9 [facility] [address] [place] [address] 81303- 1669 Nov, [facility] [id number] [place] [address] 09664- 2319 08 Nov, [address] [facility] [id number] [place] [address] 39931- 3634 03 Nov, [address] [facility] [address] [place] [address] 28197- 1620 Oct, Back pain M54.9 [facility] [id number] [place] [address] 94327- 0409 Oct, [facility] [id number] [place] [address] 19287- 4697 Oct, Back pain M54.9 [facility] [id number] [place] [address] 64574- 9381 Oct, Type 2 diabetes mellitus without complications E11.[address] [facility] [id number] [place] [address] 33421- 9711 Oct, [facility] [id number] [place] [address] 68924- 4952 Oct, [facility] [id number] [place] [address] 11084- 8552 September, Gastroparesis K31.84 ; Type 2 diabetes mellitus with diabetic autonomic (poly)neuropathy E11.[address] [facility] [id number] [place] [address] 47528- 3794 September, Other dorsalgia M54.89 [facility] [id number] [place] [address] 10380- 8069 September, [facility] [id number] [place] [address] 72868- 6933 September, [facility] [id number] [place] [address] 27913- 7888 Aug, Gastroparesis K31.84 and Radicular leg pain M54.10 [facility] [id number] [place] [address] 57752- 2614 Aug, Anorexia R63.0 [facility] [address] 50589- 3727 Aug, Bronchitis J40 [facility] [id number] [place] [address] 41949- 1966 Aug, Back pain M54.9 [facility] [address] 03194- 7911 Aug, Routine gynecological examination Z01.419 ; Routine screening for STI (sexually transmitted infection) Z11.3 and Yeast infection of the vagina B37.3 [facility] [id number] [place] [address] 41014- 3546 Jul, Other dorsalgia M54.89 [facility] [address] 82639- 1665 Jul, Diabetes E11.[address] [facility] [address] 82310- 9678 Jun, [facility] [address] 39548- 2981 Jun, Back pain M54.9 [facility] [id number] [place] [address] 43521- 4796 14 Jun, 2016 Neuropathy G62.9 [facility] [address] [id number] 02 Jun, 2016 Encounter for dental examination Z01.20 [facility] [address] 07289- 5650 Jun, Gastroparesis 536.[address] [facility] [id number] [place] [address] 22500- 0091 May, Other dorsalgia M54.89 [facility] [address] [place] [address]- 1387 May, Periumbilical abdominal pain R10.33 ; Weight loss R63.[address] [facility] [address] 43738 2546 May, Back pain M54.9 [facility] [address] 89869 2546 Apr, Anorexia R63.0 [facility] [address] 17483- 2546 Apr, Anorexia R63.0 [facility] [address] 96812 2546 16 Apr, [address] [facility] [address] 46845 2546 15 Apr, [address] [facility] [address] 19052 2546 Apr, [facility] [address] 61710 2546 Apr, Bronchitis J40 and Neuropathy G62.9 [facility] [id number] [place] [address] 28762 2546 Apr, Neuropathy G62.9 [facility] [address] 81014 2546 05 Apr, 2016 [facility] [id number] [place] [address] 19263 2546 Apr, Back pain M54.9 [facility] [address] 25220 2546 30 Mar, 2016 Type 2 diabetes mellitus with diabetic autonomic (poly) neuropathy E11.43 [facility] [address] [place] [address] 84511 2546 28 Mar, 2016 Type 2 diabetes mellitus without complications E11.9 [facility] [address] [place] [address] 07136- 3251 Mar, Neuropathy G62.9 [facility] [id number] [place] [address] 97215- 9396 Mar, [facility] [id number] [place] [address] 81324- 0732 Mar, Breast cancer screening Z12.39 [facility] [id number] [place] [address] 67208- 9426 Mar, Other dorsalgia M54.89 [facility] [id number] [place] [address] 68446- 7888 Feb, [facility] [id number] [place] [address] 98625- 2239 30 Jan, 2016 Neuropathy G62.9 ; Type 2 diabetes mellitus with diabetic autonomic (poly)neuropathy E11.43 ; Uncomplicated asthma, unspecified asthma severity J45.909 and Encounter for immunization Z23 [facility] [id number] [place] [address] 39431- 3827 Jan, [place] [id number] [place] [address] 66339- 2269 Jan, [facility] [id number] [place] [address] 07140- 6993 Dec, [facility] [id number] [place] [address] 59007- 7886 Dec, [facility] [id number] [place] [address] 19402- 4424 Nov, [facility] [id number] [place] [address] 64711- 3046 Nov, Back pain M54.9 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 [id number] [place] [address] 59305- 1156 Oct, [facility] [id number] [place] [address] 64461- 9446 Oct, Other dorsalgia M54.89 [facility] [id number] [place] [address] 81836- 9485 September, Primary insomnia F51.01 [facility] [id number] [place] [address] 77593- 1764 September, [facility] [address] 03827- 4309 Aug, Other dorsalgia M54.89 [facility] [id number] [place] [address] 86572- 8720 Jul, [facility] [address] 92843- 4521 Jul, Other dorsalgia M54.89 [facility] [id number] [place] [address] 04292- 0643 Jul, Diabetes E11.9 ; Back pain M54.9 ; Neuropathy G62.[address] [facility] [id number] [place] [address] 85267- 9414 Jun, [facility] [id number] [place] [address] 50157- 7130 Jun, Other dorsalgia M54.89 [facility] [id number] [place] [address] 83318- 4686 May, [facility] [id number] [place] [address] 54719- 9073 May, Radicular leg pain M54.10 and Other dorsalgia M54.89 [facility] [id number] [place] [address] 00352- 2289 Apr, [facility] [address] [address] [address] Mar, [facility] [id number] [place] [address] 43485- 1823 Mar, [facility] [id number] [place] [address] 14956- 2046 Mar, Radicular leg pain M54.10 [facility] [id number] [place] [address] 03609- 8798 Feb, [facility] [id number] [place] [address] 06929- 3066 Feb, [facility] [id number] [place] [address] 17112- 2788 Feb, [facility] [id number] [place] [address] 53731- 5721 Jan, [facility] [id number] [place] [address] 81589- 3005 Jan, IBS (irritable bowel syndrome) 564.1 [facility] [id number] [place] [address] 25108- 4136 Jan, [facility] [id number] [place] [address] 94934- 5383 Jan, [facility] [id number] [place] [address] 23533- 1856 Jan, Diabetes mellitus without mention of complication, type II or unspecified type, not stated as uncontrolled 250.00 ; Gastroparesis 536.[address] [facility] [id number] [place] [address] 89287- 2866 Jan, [facility] [id number] [place] [address] 32037- 5736 Jan, [facility] [id number] [place] [address] 27428- 2408 Dec, [facility] [address] [address] Dec, [facility] [id number] [place] [address] 89662- 2708 Dec, [facility] [address], [place] [address] 3041 Dec, Back pain 724.[address] [facility] [id number] [place] [address] 13811- 3721 Nov, [facility] [id number] [place] [address] [id number] Nov, Dental examination V72.2 [facility] [id number] [place] [address] 32207- 5619 Nov, [facility] [id number] [place] [address] 68659- 3297 Nov, [facility] [id number] [place] [address] 33423- 4130 Nov, Depressive disorder, not elsewhere classified 311 and No condition on Crandall II V71.09 [facility] [address], [place] [address] 7884 Nov, Diabetes 250.00 and Symptomatic menopausal or female climacteric states 627.2 [facility] [address], [place] [address] 8[address] Oct, [facility] [id number], [place] [address] 8171 Oct, Lumbar strain 847.2 [facility] [address], [place] [address] 9231 Oct, Gastroparesis 536.3 and Unspecified myalgia and myositis 729.1 [facility] [address] [place] [address] 70679- 3986 14 Aug, 2014 [facility] [place] [facility] [address] [id number] [place] [address]- 9795 Aug, [facility] [place] [facility] [address] [id number] [place] [address]- 7497 Jul, [facility] [place] [facility] [address] [id number] [place] [address]- 1765 Jul, [facility] [place] [facility] [address] [id number] [place] [address]- 8620 Jul, [facility] [place] [facility] [address] [id number] [place] [address]- 9955 Jul, [facility] [place] [facility] [address] [id number] [place] [address]- 3383 Jul, [facility] [place] [facility] [address] [id number] [place] [address]- 5635 Jun, [facility] [place] [facility] [address] [id number] [place] [address]- 4960 Jun, [facility] [place] [facility] [address] [id number] [place] [address]- 8191 Jun, [facility] [place] [facility] [address] [id number] [place] [address]- 1007 May, [facility] [place] [facility] [address] [id number] [place] [address]- 9783 May, [facility] [place] [facility] [address] [id number] [place] [address]- 1121 Mar, [facility] [place] [facility] [address] [id number] [place] [address]- 2955 Mar, [facility] [place] [facility] [address] [id number] [place] [address]- 7966 Mar, [facility] [place] [facility] [address] [id number] [place] [address]- 6185 Mar, [facility] [place] [facility] [address] [id number] [place] [address]- 6001 Mar, [facility] [address] [id number] [place] [address]- 0464 Mar, [facility] [place] [facility] [address] [id number] [place] [address]- 6553 Feb, [facility] [address] [id number] [place] [address]- 7775 Feb, [facility] [address] [id number] [place] [address]- 6453 Nov, [facility] [address] [id number] [place] [address]- 7156 Nov, [facility] [address] [id number] [place] [address]- 2203 Nov, [facility] [address] [id number] [place] [address]- 8972 Oct, [facility] [address] [id number] [place] [address]- 7289 September, [facility] [address] [id number] [place] [address]- 3072 Aug, [facility] [address] [id number] [place] [address]- 9351 Aug, [facility] [place] [facility] [address] [id number] [place] [address]- 0555 Aug, [facility] [place] [facility] [address] [id number] [place] [address]- 6042 Aug, [facility] [place] [facility] [address] [id number] [place] [address]- 1884 Aug, [facility] [place] [facility] [address] [id number] [place] [address]- 2116 Aug, [facility] [place] [facility] [address] [id number] [place] [address]- 7105 Aug, [facility] [address] [id number] [place] [address]- 4160 Aug, [facility] [place] [facility] [address] [id number] [place] [address]- 1248 Jul, [facility] [place] [facility] [address] [id number] [place] [address]- 7397 Jul, [facility] [place] [facility] [address] [id number] [place] [address]- 1930 Jun, [facility] [place] [facility] [address] [id number] [place] [address]- 2669 Jun, [facility] [place] [facility] [address] [id number] [place] [address]- 4444 Jun, [facility] [place] [facility] [address] [id number] [place] [address]- 7938 08 Jun, 2012 [facility] [place] [facility] [address] [id number] [place] [address]- 3376 Jun, [facility] [place] [facility] [address] [id number] [place] [address]- 5231 07 Jun, 2012 [facility] [place] [facility] [address] [id number] [place] [address]- 0729 Jun, [facility] [place] [facility] [address] [id number] [place] [address]- 0128 May, [facility] [place] [facility] [address] [id number] [place] [address]- 5546 May, [facility] [place] [facility] [address] [id number] [place] [address]- 7384 May, [facility] [place] [facility] [address] [id number] [place] [address]- 9934 May, [facility] [place] [facility] [address] [id number] [place] [address]- 9915 Mar, [facility] [place] [facility] [address] [facility] [id number] [place] [address]- [address] Mar, [facility] [address] [facility] [id number] [place] [id number] Jan, IMMUNIZATIONS No Known Immunizations SOCIAL HISTORY Never Assessed REASON FOR VISIT Medication question PLAN OF CARE VITAL SIGNS MEDICATIONS Medication Instructions Dosage Frequency Start Date End Date Duration Status Wellbutrin SR 100 mg Orally twice a day 1 tablet in the morning 12h 30 days Active RESULTS No Results [...]
--- OUTSIDE RECORDS SUMMARY | 2018-05-04 15:36 | XMS REPORT ---
Author Author HORACE HIGGINS [facility] Address [address] [place] [address] Care Team Providers Care Fire Safety Inspector Name Role Phone HORACE HIGGINS Unavailable PROBLEMS Type Condition ICD9-CM Code [id number] Code Onset Dates Condition Status SNOMED Code Problem Asthma exacerbation J45.901 Active 087494763 Problem Diabetic polyneuropathy associated with type 2 diabetes mellitus E11.42 Active 76328079 Problem Reactive depression F32.9 Active 73777241 Problem Other chronic pain G89.29 Active 01463672 Problem Neuropathy G62.9 Active 594240337 Problem Irritable bowel syndrome with constipation K58.1 Active 092138435 Problem Back pain M54.9 Active 236984923 Problem Low TSH level R94.6 Active 755888499 Problem Migraine without aura and without status migrainosus, not intractable G43.009 Active 952000953 Problem PTSD (post-traumatic stress disorder) F43.10 Active 18458320 Problem Tobacco dependency F17.200 Active 49595476 Problem Annual physical exam Z00.00 Active 271591085 Problem Mixed hyperlipidemia E78.2 Active 556161728 Problem Type 2 diabetes mellitus with diabetic autonomic (poly)neuropathy E11.43 Active 02684277 Problem Diabetes E11.9 Active 67021270 Problem Gastroparesis K31.84 Active 959068494 Problem Anorexia R63.0 Active 68805104 Problem Weight loss R63.4 Active 454165647 Problem cst current use of insulin Z79.4 Active 536488903 Problem History of colon polyps Z86.010 Active 748160421 Problem Uncomplicated asthma, unspecified asthma severity J45.909 Active 598637524 Problem Primary insomnia F51.01 Active 4069134 ALLERGIES No Information ENCOUNTERS Encounter Location Date Diagnosis [facility] [address] [facility] [id number] [place] [address] 8398 Apr, [facility] [id number] [place] [address] 97467- 4700 Feb, [facility] [id number] [place] [address] 15194- 5832 Feb, PTSD (post-traumatic stress disorder) F43.10 [facility] [id number] [place] [address] 99700- 4506 Feb, PTSD (post-traumatic stress disorder) F43.10 [facility] [address] 54865- 8461 Feb, Pain in left shoulder M25.512 and Other chronic pain G89.29 [place] [address] 84850- 8677 Feb, LLQ pain R10.32 and Other dorsalgia M54.89 [place] [address] 88202- 0325 Feb, [facility] [address] 78893- 9889 Feb, Right lower quadrant abdominal pain R10.31 ; Pain in left shoulder M25.512 ; Other chronic pain G89.29 and Encounter for immunization Z23 [facility] [id number] [place] [address] 79414- 1195 Feb, [facility] [id number] [place] [address] 64986- 2186 Jan, Dysfunction of left eustachian tube H69.82 [facility] [id number] [place] [address] 84740- 4433 Jan, [facility] [address] 85648- 5568 Jan, [facility] [id number] [place] [address] 88672- 1764 Jan, [facility] [address] 56579- 9585 Jan, [facility] [id number] [place] [address] 91629- 3179 Jan, Left upper arm pain M79.622 [facility] [id number] [place] [address] 41669- 2296 Jan, [facility] [id number] [place] [address] 79894- 6990 Jan, PTSD (post-traumatic stress disorder) F43.10 and Tobacco dependency F17.200 [place] [address] 12158- 6535 Jan, Back pain M54.9 ; Type 2 diabetes mellitus with diabetic autonomic (poly)neuropathy E11.43 ; Neuropathy G62.9 ; Irritable bowel syndrome with constipation K58.1 ; Sprain of other part of left shoulder region, initial encounter S43.492A and Dysfunction of left eustachian tube H69.82 [place] [address] 10260- 8119 Jan, [place] [address] 70599- 4745 05 Jan, 2018 Neuropathy G62.9 ; LLQ pain R10.32 and Other dorsalgia M54.89 [facility] [id number] [place] [address] 37418- 9571 Jan, [place] [address] 54280- 3441 Jan, [facility] [id number] [place] [address] 36757- 5666 Dec, Right upper quadrant abdominal pain R10.11 [facility] [place] [id number] [place] [address] 26444- 7044 Dec, PTSD (post-traumatic stress disorder) F43.10 [facility] [id number] [place] [address] 71207- 3702 Dec, LLQ pain R10.32 [facility] [id number] [place] [address] 85084- 3559 Dec, Other dorsalgia M54.89 [place] [address] 01970- 9883 Dec, Neuropathy G62.9 [place] [address] 89291- 8024 Dec, [place] [address] 96752- 6009 Nov, Irritable bowel syndrome with constipation K58.1 ; Uncomplicated asthma, unspecified asthma severity J45.909 and Type 2 diabetes mellitus with diabetic autonomic (poly)neuropathy E11.43 [facility] [address] [id number] Nov, Dental examination Z01.20 [place] [address] 58080- 3645 Nov, Other dorsalgia M54.89 [place] [address] 36447- 2257 Nov, LLQ pain R10.32 ; Low TSH level R94.6 and Gastroparesis K31.84 [facility] [id number] [place] [address] 84634- 6203 Nov, Anorexia R63.0 [place] [address] 39870- 8946 Nov, Asthma exacerbation J45.901 [place] [place] [id number] [place] [address] 40472- 9302 Oct, PTSD (post-traumatic stress disorder) F43.10 [facility] [place] [id number] [place] [address] 57800- 8225 Oct, [place] [address] 35827- 9700 Oct, PTSD (post-traumatic stress disorder) F43.10 and Tobacco dependency F17.200 [facility] [id number] [place] [address] 03381- 3809 Oct, [facility] [place] [id number] [place], [place] [address] 381 Oct, Other dorsalgia M54.89 [place] [address] 83843- 2219 Oct, Anorexia R63.0 [place] [address] 20039- 9439 September, PTSD (post-traumatic stress disorder) F43.10 [place] [address] 75323- 238 September, Low TSH level R94.6 [place] [address] 94261- 6709 September, Other dorsalgia M54.89 [place] [place] [id number] [place] [address] 69593- 8561 September, Annual physical exam Z00.00 and Migraine without aura and without status migrainosus, not intractable G43.009 [place] [id number] [place] [address] 86649- 5218 September, Abnormal TSH R94.6 and Dysfunction of left eustachian tube H69.82 [facility] [place] [id number] [place] [address] 57340- 5874 Aug, [facility] [id number] [place] [address] 56116- 3784 Aug, Anorexia R63.0 [facility] [id number] [place] [address] [id number] Aug, Dental examination Z01.20 and Xerostomia K11.7 [facility] [id number] [place] [address] 34407- 5976 Aug, Neuropathy G62.9 [facility] [id number] [place] [address] 04557- 3236 Aug, [facility] [address] 62337- 6786 Aug, Other dorsalgia M54.89 [facility] [id number] [place] [address] 49954 2546 Aug, Type 2 diabetes mellitus with diabetic autonomic (poly) neuropathy E11.43 ; Diabetic polyneuropathy associated with type 2 diabetes mellitus E11.42 ; Bronchitis J40 ; Gastroparesis K31.84 and Reactive depression F32.9 [facility] [address] 76391- 5159 Aug, PTSD (post-traumatic stress disorder) F43.10 [facility] [address] 23411- 9153 Aug, Other dorsalgia M54.89 and Anorexia R63.0 [facility] [id number] [place] [address] 11011- 9536 Jul, [facility] [address] 42627- 3984 Jul, Other dorsalgia M54.89 [facility] [id number] [place] [address] 87607- 2217 Jul, [facility] [id number] [place] [address] 75594 2544 Jul, [facility] [id number] [place] [address] 28574- 2544 Jul, PTSD (post-traumatic stress disorder) F43.10 [facility] [id number] [place] [address] 25086- 1886 Jul, [facility] [id number] [place] [address] 86501- 0723 Jul, [facility] [address] 89133 2546 Jul, [facility] [id number] [place] [address] 38157 2546 Jul, Anorexia R63.0 [facility] [id number] [place] [address] 08070 2546 Jun, [facility] [id number] [place] [address] 87565 2546 Jun, Vaginal discharge N89.8 ; Visit for gynecologic examination Z01.419 and Pelvic pressure in female R10.2 [facility] [id number] [place] [address] 43743 2546 Jun, [facility] [address] 98172- 7686 Jun, Other dorsalgia M54.89 [facility] [address] 79294- 2516 Jun, [facility] [id number] [place] [address] 41179- 5036 Jun, [facility] [address] 89311- 0166 Jun, [facility] [id number] [place] [address] 41435- 1136 May, Back pain M54.9 [facility] [id number] [place] [address] 46370 2546 May, Anorexia R63.0 [facility] [id number] [place] [address] 44477 2546 May, Other dorsalgia M54.89 [facility] [id number] [place] [address] 34243 2546 May, [facility] [id number] [place] [address] 77507 2546 May, Bronchitis J40 [facility] [address] 88201- 2652 May, Type 2 diabetes mellitus with diabetic autonomic (poly) neuropathy E11.43 ; custodial current use of insulin Z79.4 ; Back pain M54.9 and Neuropathy G62.9 [facility] [address] 86992- 9156 May, Left breast mass N63.20 [facility] [address] 90049- 2554 May, [facility] [address] 93442- 7301 Apr, Other dorsalgia M54.89 [facility] [address] 36302- 9858 Apr, Anorexia R63.0 [facility] [address] 62168- 1179 Apr, Anorexia R63.0 [facility] [address] 65491- 6615 Apr, Mass of left breast N63.20 [facility] [address] 21447- 0434 Apr, [facility] [address] 98024- 7432 Apr, [facility] [address] 31595- 6526 Apr, Diarrhea of presumed infectious origin A09 [facility] [address] 25012- 4578 Apr, Encounter for immunization Z23 [facility] [address] 61667- 6185 Apr, [facility] [address] 17132- 4586 Mar, Other dorsalgia M54.89 [facility] [id number] [place] [address] 11499- 1387 Mar, [facility] [address] 38723- 9046 Mar, [facility] [id number] [place] [address] 50330- 8436 Mar, Anorexia R63.0 [facility] [address] 99922 2546 Mar, [facility] [id number] [place] [address] 61458- 0362 Mar, Other dorsalgia M54.89 [facility] [id number] [place] [address] 50674- 6633 Mar, [facility] [address] 57626- 9864 Mar, Encounter for immunization Z23 [facility] [id number] [place] [address] 95862- 9934 Feb, Anorexia R63.0 [facility] [address] 35421- 8951 Feb, Diabetes E11.9 [facility] [id number] [place] [address] 77253- 1622 Feb, Back pain M54.9 and Diabetes E11.9 [facility] [id number] [place] [address] 00001- 4885 Feb, Diabetes E11.9 [facility] [id number] [place] [address] 73637- 3529 Feb, Neuropathy G62.9 [facility] [id number] [place] [address] 12548- 4567 Feb, Encounter for immunization Z23 ; Epigastric pain R10.13 ; Weight loss, abnormal R63.4 and Neuropathy G62.9 [facility] [place] [address] [place] [id number] Feb, [facility] [id number] [place] [address] 95689- 4905 Feb, [facility] [id number] [place] [address] 54422- 5950 Feb, Intractable vomiting with nausea, unspecified vomiting type R11.2 [facility] [id number] [place] [address] 75981 -8960 Feb, Chronic nausea R11.0 [facility] [id number] [place] [address] 58260- 7775 Feb, Other dorsalgia M54.89 [facility] [id number] [place] [address] 48221- 4669 Jan, [facility] [id number] [place] [address] 21836- 5269 Jan, [facility] [id number] [place] [address] 09389- 2949 Jan, [facility] [id number] [place] [address] 92895- 5071 Jan, [facility] [id number] [place] [address] 42621- 5258 Jan, Asthma exacerbation J45.901 ; Bronchitis J40 and Neuropathy G62.9 [facility] [id number] [place] [address] 09290- 0346 Jan, Anorexia R63.0 [facility] [id number] [place] [address] 88717- 8531 Jan, Other dorsalgia M54.89 [facility] [id number] [place] [address] 24368- 3023 Dec, [facility] [id number] [place] [address] 43883- 8057 Dec, [facility] [id number] [place] [address] 07235- 2668 15 Dec, 2016 Anorexia R63.0 [facility] [id number] [place] [address] 63091- 3700 Dec, Primary insomnia F51.01 [facility] [id number] [place] [address] 47311- 3688 Dec, Other dorsalgia M54.89 [facility] [id number] [place] [address] 83137- 4957 Dec, [facility] [id number] [place] [address] 84701- 4604 Nov, [facility] [address] [place] [address] 53523- 4828 Nov, [facility] [id number] [place] [address] 98970- 2024 Nov, [facility] [address] [place] [address] 30384- 2197 Nov, History of colon polyps Z86.010 [facility] [address] [place] [address] 75724- 3641 Nov, Weight loss R63.4 ; Nausea and vomiting, intractability of vomiting not specified, unspecified vomiting type R11.2 and Abnormal LFTs R79.89 [facility] [address] [place] [address] 20945- 2409 Nov, [facility] [id number] [place] [address] 27232- 0852 Nov, Neuropathy G62.9 and Pain in right knee M25.561 [facility] [address] [place] [address] 82251- 8968 Nov, Back pain M54.9 [facility] [address] [address]- 6041 Nov, [facility] [id number] [address]- 5573 08 Nov, 2016 Bronchitis J40 [facility] [id number] [place] [address] 89658- 8640 03 Nov, 2016 Weight loss R63.4 [facility] [id number] [place] [address] 79295- 8900 16 Oct, 2016 Back pain M54.9 [facility] [id number] [place] [address] 39008- 9517 Oct, [facility] [id number] [place] [address] 70834- 5688 14 Oct, 2016 Back pain M54.9 [facility] [id number] [place] [address] 35099- 6190 Oct, Type 2 diabetes mellitus without complications E11.9 and Bronchitis J40 [facility] [address] [place] [address] 25559- 7619 Oct, [facility] [id number] [place] [address] 98549- 3088 Oct, [facility] [address] [place] [address] 93158- 8258 September, Gastroparesis K31.84 ; Type 2 diabetes mellitus with diabetic autonomic (poly)neuropathy E11.43 and Neuropathy G62.9 [facility] [address] [place] [address] 74778- 1671 September, Other dorsalgia M54.89 [facility] [address] [place] [address] 10413- 4246 September, [facility] [address] [place] [address] 98617- 7842 September, [facility] [address] [place] [address] 47516- 4906 Aug, Gastroparesis K31.84 and Radicular leg pain M54.10 [facility] [address] [place] [address] 06695- 5710 Aug, Anorexia R63.0 [facility] [address] 18373- 8171 Aug, Bronchitis J40 [facility] [id number] [place] [address] 68758- 2885 Aug, Back pain M54.9 [facility] [address] 07673- 5977 Aug, Routine gynecological examination Z01.419 ; Routine screening for STI (sexually transmitted infection) Z11.3 and Yeast infection of the vagina B37.3 [facility] [id number] [place] [address] 00917- 6069 Jul, Other dorsalgia M54.89 [facility] [address] 83982- 8861 Jul, Diabetes E11.9 and Gastroparesis K31.84 [facility] [address] 22639- 1132 Jun, [facility] [address] 17987- 3191 Jun, Back pain M54.9 [facility] [address] 64666- 2545 14 Jun, 2016 Neuropathy G62.9 [facility] [id number] [place] [address] [id number] 02 Jun, 2016 Encounter for dental examination Z01.20 [facility] [address] 64441- 2163 Jun, Gastroparesis 536.3 and Anorexia R63.0 [facility] [id number] [place] [address] 66082- 2783 May, Other dorsalgia M54.89 [facility] [address] 57814 2540 May, Periumbilical abdominal pain R10.33 ; Weight loss R63.4 and Gastroparesis K31.84 [facility] [address] 97356 2546 May, Back pain M54.9 [facility] [address] 65289- 2546 Apr, Anorexia R63.0 [facility] [address] 99947- 2546 Apr, Anorexia R63.0 [facility] [address] 34920 2546 16 Apr, 2016 Back pain M54.9 [facility] [address] 71784 2546 15 Apr, 2016 Back pain M54.9 [facility] [address] 34565 2546 Apr, [facility] [address] 12753- 2546 Apr, Bronchitis J40 and Neuropathy G62.9 [facility] [id number] [place] [address] 42147 2546 Apr, Neuropathy G62.9 [facility] [address] 06958 2546 05 Apr, 2016 [facility] [id number] [place] [address] 59156 2546 Apr, Back pain M54.9 [facility] [address] 43443 2546 30 Mar, 2016 Type 2 diabetes mellitus with diabetic autonomic (poly) neuropathy E11.43 [place] [address] [place] [id number] [place] [address] 64348 2546 28 Mar, 2016 Type 2 diabetes mellitus without complications E11.9 [facility] [address] [place] [id number] [place] [address] 54691- 0442 Mar, Neuropathy G62.9 [facility] [address] 95[address]- 9022 Mar, [facility] [address] [place] [id number] [place] [address] [id number]- 6278 Mar, Breast cancer screening Z12.39 [facility] [address] 010[address]- [address]31 Mar, Other dorsalgia M54.89 [facility] [address] [place] [id number] [place] [address] 26616- 1421 Feb, [facility] [address] [place] [id number] [place] [address] 31416- 2142 30 Jan, 2016 Neuropathy G62.9 ; Type 2 diabetes mellitus with diabetic autonomic (poly)neuropathy E11.43 ; Uncomplicated asthma, unspecified asthma severity J45.909 and Encounter for immunization Z23 [facility] [address] [place] [id number] [place] [address] 62224- 4715 Jan, [place] [address] 19085- 1851 Jan, [facility] [address] [place] [id number] [place] [address] 89567- 0206 Dec, [facility] [address] [place] [id number] [place] [address] 27584- 3672 Dec, [facility] [address] [place] [id number] [place] [address] [id number]- 8302 Nov, [facility] [address] [place] [id number] [place] [address] 08441- 3178 Nov, Back pain M54.9 [facility] [id number] [place] [address] 43878- 2923 Nov, Neuropathy G62.9 ; Mixed hyperlipidemia E78.2 ; Type 2 diabetes mellitus with diabetic autonomic (poly)neuropathy E11.43 and custodial current use of insulin Z79.4 [facility] [id number] [address] Oct, [facility] [id number] [place] [address] 93992- 7871 Oct, Other dorsalgia M54.89 [facility] [id number] [place] [address] 57109- 8913 September, Primary insomnia F51.01 [facility] [id number] [place] [address] 11816- 0937 September, [facility] [id number] [place] [address] 35179- 2120 Aug, Other dorsalgia M54.89 [facility] [id number] [place] [address] 43013- 6955 Jul, [facility] [id number] [place] [address] 98486- 0026 Jul, Other dorsalgia M54.89 [facility] [id number] [place] [address] 06627- 9527 Jul, Diabetes E11.9 ; Back pain M54.9 ; Neuropathy G62.9 and Gastroparesis K31.84 [facility] [id number] [place] [address] 58127- 7478 Jun, [facility] [id number] [place] [address] 43755- 3746 Jun, Other dorsalgia M54.89 [facility] [id number] [place] [address] 82713- 7530 May, [facility] [id number] [place] [address] 37682- 4352 May, Radicular leg pain M54.10 and Other dorsalgia M54.89 [facility] [id number] [place] [address] 39808- 7574 Apr, [facility] [id number] [address] 3799 Mar, [facility] [id number] [place] [address] 60223- 6315 Mar, [facility] [id number] [place] [address] 93106- 3529 Mar, Radicular leg pain M54.10 [facility] [id number] [place] [address] 90942- 0638 Feb, [facility] [id number] [place] [address] 99516- 4747 Feb, [facility] [id number] [place] [address] 62238- 9193 Feb, [facility] [id number] [place] [address] 01318- 4395 Jan, [facility] [id number] [place] [address] 21590- 6931 Jan, IBS (irritable bowel syndrome) 564.1 [facility] [id number] [place] [address] 07558- 7158 Jan, [facility] [id number] [place] [address] 09389- 0109 Jan, [facility] [id number] [place] [address] 22586- 2342 Jan, Diabetes mellitus without mention of complication, type II or unspecified type, not stated as uncontrolled 250.00 ; Gastroparesis 536.3 and Hypoacusis 389.9 [facility] [id number] [place] [address] 83176- 4070 Jan, [facility] [id number] [place] [address] 81545- 4000 Jan, [facility] [id number] [place] [address] 08277- 5605 Dec, [facility] [id number] [address] 4598 Dec, [facility] [id number] [address]6 Dec, [facility] [address] [address] 3490 Dec, Back pain 724.5 and Gastroparesis 536.3 [facility] [address] [address] 3853 Nov, [facility] [id number] [place] [address] [id number] Nov, Dental examination V72.2 [facility] [address] [address]- 1512 Nov, [facility] [id number] [place] [address] 05435- 3274 Nov, [facility] [address] [address]- 0565 Nov, Depressive disorder, not elsewhere classified 311 and No condition on [place] II V71.09 [facility] [address] [address]- 1052 Nov, Diabetes 250.00 and Symptomatic menopausal or female climacteric states 627.2 [facility] [address] [address]- 2489 Oct, [facility] [id number] [address]- 4990 Oct, Lumbar strain 847.2 [facility] [address] 2986 Oct, Gastroparesis 536.3 and Unspecified myalgia and myositis 729.1 [facility] [address] [address]- 3705 14 Aug, 2014 [facility] [place] [facility] [address] [id number] [place] [address]- 9234 Aug, [facility] [place] [facility] [address] [id number] [place] [address]- 5757 Jul, [facility] [place] [facility] [address] [id number] [place] [address]- 2033 Jul, [facility] [place] [facility] [address] [id number] [place] [address]- 2081 Jul, [facility] [place] [facility] [address] [id number] [place] [address]- 1821 Jul, [facility] [place] [facility] [address] [id number] [place] [address]- 4027 Jul, [facility] [place] [facility] [address] [id number] [place] [address]- 6927 Jun, [facility] [place] [facility] [address] [id number] [place] [address]- 3831 Jun, [facility] [place] [facility] [address] [id number] [place] [address]- 6545 Jun, [facility] [place] [facility] [address] [id number] [place] [address]- 5743 May, [facility] [place] [facility] [address] [id number] [place] [address]- 9897 May, [facility] [place] [facility] [address] [id number] [place] [address]- 5816 Mar, [facility] [place] [facility] [address] [id number] [place] [address]- 9553 Mar, [facility] [place] [facility] [address] [id number] [place] [address]- 3666 Mar, [facility] [place] [facility] [address] [id number] [place] [address]- 2538 Mar, [facility] [place] [facility] [address] [id number] [place] [address]- 2656 Mar, [facility] [address] [id number] [place] [address]- 7442 Mar, [facility] [address] [id number] [place] [address]- 9597 Feb, [facility] [address] [id number] [place] [address]- 9384 Feb, [facility] [address] [id number] [place] [address]- 8888 Nov, [facility] [address] [id number] [place] [address]- 2627 Nov, [facility] [address] [id number] [place] [address]- 1741 Nov, [facility] [address] [id number] [place] [address]- 5082 Oct, [facility] [address] [id number] [place] [address]- 8585 September, [facility] [address] [id number] [place] [address]- 4607 Aug, [facility] [address] [id number] [place] [address]- 3711 15 Aug, 2012 [facility] [address] [id number] [place] [address]- 0485 Aug, [facility] [address] [id number] [place] [address]- 2613 Aug, [facility] [place] [facility] [address] [id number] [place] [address] Aug, [facility] [address] [id number] [place] [address]- 2500 Aug, [facility] [address] [id number] [place] [address]- 3290 Aug, [facility] [address] [id number] [place] [address]- 4815 Aug, [facility] [place] [facility] [address] [id number] [place] [address]- 2052 Jul, [facility] [address] [id number] [place] [address]- 2359 Jul, [facility] [place] [facility] [address] [id number] [place] [address]- 0261 Jun, [facility] [address] [id number] [place] [address]- 2540 Jun, [facility] [place] [facility] [address] [id number] [place] [address]- 7616 Jun, [facility] [place] [facility] [address] [id number] [place] [address]- 5286 08 Jun, 2012 [facility] [place] [facility] [address] [id number] [place] [address]- 9336 Jun, [facility] [place] [facility] [address] [id number] [place] [address]- 8886 Jun, [facility] [place] [facility] [address] [id number] [place] [address]- 0030 Jun, [facility] [place] [facility] [address] [id number] [place] [address]- 6511 May, [facility] [place] [facility] [address] [id number] [place] [address]- 1577 May, [facility] [place] [facility] [address] [id number] [place] [address]- 0356 May, [facility] [place] [facility] [address] [id number] [place] [address]- 0577 May, [facility] [place] [facility] [address] [facility] [id number] [place] [address]- 0406 Mar, [facility] [place] [facility] [address] [facility] [id number] [place] [address]- 2546 Mar, [facility] [address] [facility] [id number] [place] [address]- 9687 Jan, IMMUNIZATIONS No Known Immunizations SOCIAL HISTORY Never Assessed REASON FOR VISIT Controlled Med Refill 02/27 PLAN OF CARE VITAL SIGNS MEDICATIONS Medication Instructions Dosage Frequency Start Date End Date Duration Status Oxycodone-Acetaminophen 10-325 MG Orally 4 times a day 1 tablet as needed 6h Feb, 28 days Active Zolpidem Tartrate 10 mg TAKE ONE TABLET BY MOUTH ONCE DAILY 28 days Active Marinol 5 mg Orally [...]
--- OUTSIDE RECORDS SUMMARY | 2018-05-04 15:37 | XMS REPORT ---
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 Name Role Phone HORACE HIGGINS Unavailable PROBLEMS Type Condition ICD9-CM Code ZWW29-XH Code Onset Dates Condition Status SNOMED Code Problem Asthma exacerbation J45.901 Active 413632438 Problem Diabetic polyneuropathy associated with type 2 diabetes mellitus E11.42 Active 84098254 Problem Reactive depression F32.9 Active 99219933 Problem Other chronic pain G89.29 Active 05361311 Problem Neuropathy G62.9 Active 673853121 Problem Irritable bowel syndrome with constipation K58.1 Active 455020775 Problem Back pain M54.9 Active 313898484 Problem Low TSH level R94.6 Active 061343493 Problem Migraine without aura and without status migrainosus, not intractable G43.009 Active 716993663 Problem PTSD (post-traumatic stress disorder) F43.10 Active 04835523 Problem Tobacco dependency F17.200 Active 43177926 Problem Annual physical exam Z00.00 Active 994165432 Problem Mixed hyperlipidemia E78.2 Active 973310684 Problem Type 2 diabetes mellitus with diabetic autonomic (poly)neuropathy E11.43 Active 93617125 Problem Diabetes E11.9 Active 13102340 Problem Gastroparesis K31.84 Active 999754460 Problem Anorexia R63.0 Active 39398677 Problem Weight loss R63.4 Active 639394820 Problem 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 Active 727143315 Problem History of colon polyps Z86.010 Active 965016177 Problem Uncomplicated asthma, unspecified asthma severity J45.909 Active 396322055 Problem Primary insomnia F51.01 Active 6030927 ALLERGIES No Information ENCOUNTERS Encounter Location Date Diagnosis [facility] [address] [facility] [id number] [address] Apr, [facility] [id number] [place] [address] 59671- 7275 Feb, [facility] [id number] [place] [address] 19485- 6901 Feb, PTSD (post-traumatic stress disorder) F43.10 [facility] [id number] [place] [address] 28705- 7977 Feb, PTSD (post-traumatic stress disorder) F43.10 [facility] [address] 84666- 9923 Feb, Pain in left shoulder M25.512 and Other chronic pain G89.29 [place] [address] 41355- 5439 Feb, LLQ pain R10.32 and Other dorsalgia M54.89 [place] [address] 50139- 1582 Feb, [facility] [address] 01138- 5798 Feb, Right lower quadrant abdominal pain R10.31 ; Pain in left shoulder M25.512 ; Other chronic pain G89.29 and Encounter for immunization Z23 [facility] [id number] [place] [address] 78876- 4286 Feb, [facility] [id number] [place] [address] 34506- 7636 Jan, Dysfunction of left eustachian tube H69.82 [facility] [id number] [place] [address] 24039- 6387 Jan, [facility] [address] 13388- 0054 Jan, [facility] [id number] [place] [address] 38368- 1627 Jan, [facility] [address] 60760- 1844 Jan, [facility] [id number] [place] [address] 31427- 9819 Jan, Left upper arm pain M79.622 [facility] [id number] [place] [address] 91347- 1297 Jan, [facility] [id number] [place] [address] 51664- 0820 Jan, PTSD (post-traumatic stress disorder) F43.10 and Tobacco dependency F17.200 [place] [address] 83371- 9326 Jan, Back pain M54.9 ; Type 2 diabetes mellitus with diabetic autonomic (poly)neuropathy E11.43 ; Neuropathy G62.9 ; Irritable bowel syndrome with constipation K58.1 ; Sprain of other part of left shoulder region, initial encounter S43.492A and Dysfunction of left eustachian tube H69.82 [place] [address] 66060- 2039 Jan, [place] [address] 08878- 8363 05 Jan, 2018 Neuropathy G62.9 ; LLQ pain R10.32 and Other dorsalgia M54.89 [place] [id number] [place] [address] 13101- 5845 Jan, [place] [address] 98517- 3334 Jan, [facility] [id number] [place] [address] 07084- 7210 Dec, Right upper quadrant abdominal pain R10.11 [place] [id number] [place] [address] 25363- 1092 Dec, PTSD (post-traumatic stress disorder) F43.10 [place] [id number] [place] [address] 72596- 4643 Dec, LLQ pain R10.32 [facility] [id number] [place] [address] 78150- 3762 Dec, Other dorsalgia M54.89 [place] [address] 58050- 5189 Dec, Neuropathy G62.9 [place] [address] 11968- 2111 Dec, [place] [address] 17552- 5189 Nov, Irritable bowel syndrome with constipation K58.1 ; Uncomplicated asthma, unspecified asthma severity J45.909 and Type 2 diabetes mellitus with diabetic autonomic (poly)neuropathy E11.43 [facility] [address] [id number] Nov, Dental examination Z01.20 [place] [address] 41500- 4947 Nov, Other dorsalgia M54.89 [place] [address] 75372- 2495 Nov, LLQ pain R10.32 ; Low TSH level R94.6 and Gastroparesis K31.84 [place] [id number] [place] [address] 32762- 9912 Nov, Anorexia R63.0 [place] [address] 42762- 6092 Nov, Asthma exacerbation J45.901 [place] [id number] [place] [address] 12673- 2403 Oct, PTSD (post-traumatic stress disorder) F43.10 [place] [id number] [place] [address] 94638- 1112 Oct, [place] [address] 36490- 3559 Oct, PTSD (post-traumatic stress disorder) F43.10 and Tobacco dependency F17.200 [facility] [id number] [place] [address] 53395- 6366 Oct, [place] [id number] [place] [address] 486 Oct, Other dorsalgia M54.89 [place] [address] 38435- 3380 Oct, Anorexia R63.0 [place] [address] 75816- 7309 September, PTSD (post-traumatic stress disorder) F43.10 [place] [address] 05912- 569 September, Low TSH level R94.6 [place] [address] 28915- 1729 September, Other dorsalgia M54.89 [place] [id number] [place] [address] 22957- 2081 September, Annual physical exam Z00.00 and Migraine without aura and without status migrainosus, not intractable G43.009 [place] [id number] [place] [address] 17081- 2619 September, Abnormal TSH R94.6 and Dysfunction of left eustachian tube H69.82 [place] [id number] [place] [address] 01598- 6392 Aug, [facility] [id number] [place] [address] 81243- 9814 Aug, Anorexia R63.0 [facility] [id number] [place] [address] [id number] Aug, Dental examination Z01.20 and Xerostomia K11.7 [facility] [id number] [place] [address] 78820- 2940 Aug, Neuropathy G62.9 [facility] [id number] [place] [address] 09182- 1016 Aug, [facility] [address] 69389- 8246 Aug, Other dorsalgia M54.89 [facility] [id number] [place] [address] 84220 2546 Aug, Type 2 diabetes mellitus with diabetic autonomic (poly) neuropathy E11.43 ; Diabetic polyneuropathy associated with type 2 diabetes mellitus E11.42 ; Bronchitis J40 ; Gastroparesis K31.84 and Reactive depression F32.9 [facility] [address] 44959- 0327 Aug, PTSD (post-traumatic stress disorder) F43.10 [facility] [address] 38070- 7900 Aug, Other dorsalgia M54.89 and Anorexia R63.0 [facility] [id number] [place] [address] 42033- 9836 Jul, [facility] [address] 75812- 4727 Jul, Other dorsalgia M54.89 [facility] [id number] [place] [address] 24833- 1715 Jul, [facility] [id number] [place] [address] 31285 2547 Jul, [facility] [id number] [place] [address] 75326- 2545 Jul, PTSD (post-traumatic stress disorder) F43.10 [facility] [id number] [place] [address] 18514- 1836 Jul, [facility] [id number] [place] [address] 64105- 4077 Jul, [facility] [address] 40531 2546 Jul, [facility] [id number] [place] [address] 45144 2546 Jul, Anorexia R63.0 [facility] [id number] [place] [address] 71300 2546 Jun, [facility] [id number] [place] [address] 81460 2546 Jun, Vaginal discharge N89.8 ; Visit for gynecologic examination Z01.419 and Pelvic pressure in female R10.2 [facility] [id number] [place] [address] 84989 2546 Jun, [facility] [address] 93781- 1986 Jun, Other dorsalgia M54.89 [facility] [address] 20614- 3876 Jun, [facility] [id number] [place] [address] 86437- 8119 Jun, [facility] [address] 25848- 8006 Jun, [facility] [id number] [place] [address] 43724- 5106 May, Back pain M54.9 [facility] [id number] [place] [address] 40816 2546 May, Anorexia R63.0 [facility] [id number] [place] [address] 70655 2546 May, Other dorsalgia M54.89 [facility] [id number] [place] [address] 59808 2546 May, [facility] [id number] [place] [address] 68049 2546 May, Bronchitis J40 [facility] [address] 08725- 5798 May, Type 2 diabetes mellitus with diabetic autonomic (poly) neuropathy E11.43 ; alf current use of insulin Z79.4 ; Back pain M54.9 and Neuropathy G62.9 [facility] [address] 55279- 7524 May, Left breast mass N63.20 [facility] [address] 79313- 2794 May, [facility] [address] 54954- 2791 Apr, Other dorsalgia M54.89 [facility] [address] 90475- 3241 Apr, Anorexia R63.0 [facility] [address] 73329- 1880 Apr, Anorexia R63.0 [facility] [address] 96294- 5016 Apr, Mass of left breast N63.20 [facility] [address] 58501- 9235 Apr, [facility] [address] 88273- 2815 Apr, [facility] [address] 79983- 1470 Apr, Diarrhea of presumed infectious origin A09 [facility] [address] 94020- 1056 Apr, Encounter for immunization Z23 [facility] [address] 04854- 7243 Apr, [facility] [address] 74753- 5943 Mar, Other dorsalgia M54.89 [facility] [id number] [place] [address] 39955- 8299 Mar, [facility] [address] 32412- 2966 Mar, [facility] [id number] [place] [address] 97825- 0536 Mar, Anorexia R63.0 [facility] [address] 12519 2546 Mar, [facility] [id number] [place] [address] 43607- 5438 Mar, Other dorsalgia M54.89 [facility] [id number] [place] [address] 11447- 3705 Mar, [facility] [address] 52833- 1237 Mar, Encounter for immunization Z23 [facility] [id number] [place] [address] 16822- 6237 Feb, Anorexia R63.0 [facility] [address] 05331- 4020 Feb, Diabetes E11.9 [facility] [id number] [place] [address] 63712- 7338 Feb, Back pain M54.9 and Diabetes E11.9 [facility] [id number] [place] [address] 49048- 9260 Feb, Diabetes E11.9 [facility] [id number] [place] [address] 14080- 0949 Feb, Neuropathy G62.9 [facility] [id number] [place] [address] 81014- 1891 Feb, Encounter for immunization Z23 ; Epigastric pain R10.13 ; Weight loss, abnormal R63.4 and Neuropathy G62.9 [facility] [id number] [place] [id number] Feb, [facility] [id number] [place] [address] 63937- 7790 Feb, [facility] [id number] [place] [address] 41761- 5648 Feb, Intractable vomiting with nausea, unspecified vomiting type R11.2 [facility] [id number] [place] [address] 01658 -1210 Feb, Chronic nausea R11.0 [facility] [id number] [place] [address] 09938- 2498 Feb, Other dorsalgia M54.89 [facility] [id number] [place] [address] 09113- 3704 Jan, [facility] [id number] [place] [address] 41335- 5110 Jan, [facility] [id number] [place] [address] 21068- 3098 Jan, [facility] [id number] [place] [address] 96744- 4577 Jan, [facility] [id number] [place] [address] 11261- 5486 Jan, Asthma exacerbation J45.901 ; Bronchitis J40 and Neuropathy G62.9 [facility] [id number] [place] [address] 32527- 5270 Jan, Anorexia R63.0 [facility] [id number] [place] [address] 77038- 6233 Jan, Other dorsalgia M54.89 [facility] [id number] [place] [address] 75372- 6638 Dec, [facility] [id number] [place] [address] 55975- 7545 Dec, [facility] [id number] [place] [address] 61260- 9115 15 Dec, 2016 Anorexia R63.0 [facility] [id number] [place] [address] 61560- 3065 Dec, Primary insomnia F51.01 [facility] [id number] [place] [address] 20429- 8150 Dec, Other dorsalgia M54.89 [facility] [id number] [place] [address] 14594- 9761 Dec, [facility] [id number] [place] [address] 69768- 2892 Nov, [facility] [id number] [place] [address] 77021- 9236 Nov, [facility] [id number] [place] [address] 12204- 9027 Nov, [facility] [id number] [place] [address] 62114- 0432 Nov, History of colon polyps Z86.010 [facility] [id number] [place] [address] 72954- 2853 Nov, Weight loss R63.4 ; Nausea and vomiting, intractability of vomiting not specified, unspecified vomiting type R11.2 and Abnormal LFTs R79.89 [facility] [id number] [place] [address] 76998- 4692 Nov, [facility] [id number] [place] [address] 79818- 8906 Nov, Neuropathy G62.9 and Pain in right knee M25.561 [facility] [id number] [place] [address] 73587- 2440 Nov, Back pain M54.9 [facility] [address] [address]- 1352 Nov, [facility] [address] [id number] [address]- 3699 08 Nov, 2016 Bronchitis J40 [facility] [id number] [place] [address] 17699- 3073 03 Nov, 2016 Weight loss R63.4 [facility] [id number] [place] [address] 09728- 1700 16 Oct, 2016 Back pain M54.9 [facility] [id number] [place] [address] 88700- 7474 Oct, [facility] [id number] [place] [address] 18622- 5958 14 Oct, 2016 Back pain M54.9 [facility] [id number] [place] [address] 02019- 5663 Oct, Type 2 diabetes mellitus without complications E11.9 and Bronchitis J40 [facility] [id number] [place] [address] 60784- 1930 Oct, [facility] [id number] [place] [address] 74872- 9341 Oct, [facility] [id number] [place] [address] 98641- 4425 September, Gastroparesis K31.84 ; Type 2 diabetes mellitus with diabetic autonomic (poly)neuropathy E11.43 and Neuropathy G62.9 [place] [id number] [place] [address] 98231- 9581 September, Other dorsalgia M54.89 [facility] [id number] [place] [address] 36832- 6018 September, [facility] [id number] [place] [address] 89620- 0936 September, [facility] [id number] [place] [address] 62286- 5067 Aug, Gastroparesis K31.84 and Radicular leg pain M54.10 [facility] [id number] [place] [address] 62663- 8728 Aug, Anorexia R63.0 [facility] [address] 13199- 1784 Aug, Bronchitis J40 [facility] [id number] [place] [address] 17396- 7629 Aug, Back pain M54.9 [facility] [address] 50838- 5338 Aug, Routine gynecological examination Z01.419 ; Routine screening for STI (sexually transmitted infection) Z11.3 and Yeast infection of the vagina B37.3 [facility] [id number] [place] [address] 99637- 4598 Jul, Other dorsalgia M54.89 [facility] [address] 49594- 9346 Jul, Diabetes E11.9 and Gastroparesis K31.84 [facility] [address] 32010- 8663 Jun, [facility] [address] 26123- 6764 Jun, Back pain M54.9 [facility] [address] 20986- 4831 14 Jun, 2016 Neuropathy G62.9 [facility] [id number] [place] [address] [id number] 02 Jun, 2016 Encounter for dental examination Z01.20 [facility] [address] 10204- 6946 Jun, Gastroparesis 536.3 and Anorexia R63.0 [facility] [id number] [place] [address] 31072- 0855 May, Other dorsalgia M54.89 [facility] [address] 73802 2548 May, Periumbilical abdominal pain R10.33 ; Weight loss R63.4 and Gastroparesis K31.84 [facility] [address] 07969 2546 May, Back pain M54.9 [facility] [address] 16543- 2546 Apr, Anorexia R63.0 [facility] [address] 56504- 2546 Apr, Anorexia R63.0 [facility] [address] 44487 2546 16 Apr, 2016 Back pain M54.9 [facility] [address] 55710 2546 15 Apr, 2016 Back pain M54.9 [facility] [address] 83499 2546 Apr, [facility] [address] 57150- 2546 Apr, Bronchitis J40 and Neuropathy G62.9 [facility] [id number] [place] [address] 60898 2546 Apr, Neuropathy G62.9 [place] [address] 64716 2546 05 Apr, 2016 [facility] [id number] [place] [address] 29392 2546 Apr, Back pain M54.9 [facility] [address] 89877 2546 30 Mar, 2016 Type 2 diabetes mellitus with diabetic autonomic (poly) neuropathy E11.43 [place] [id number] [place] [address] 06865 2546 28 Mar, 2016 Type 2 diabetes mellitus without complications E11.9 [facility] [id number] [place] [address] 81205- 4240 Mar, Neuropathy G62.9 [facility] [address] [address]- [address] Mar, [facility] [id number] [place] [address] 11007- 5117 Mar, Breast cancer screening Z12.39 [facility] [address] [address] Mar, Other dorsalgia M54.89 [facility] [id number] [place] [address] 54137- 1766 Feb, [facility] [id number] [place] [address] [id number]- 8195 30 Jan, 2016 Neuropathy G62.9 ; Type 2 diabetes mellitus with diabetic autonomic (poly)neuropathy E11.43 ; Uncomplicated asthma, unspecified asthma severity J45.909 and Encounter for immunization Z23 [facility] [id number] [place] [address] 26649- 5089 Jan, [place] [address] [address] Jan, [facility] [id number] [place] [address] 37755- 2152 Dec, [facility] [id number] [place] [address] 06255- 4502 Dec, [facility] [id number] [place] [address] [phone]- 8481 Nov, [facility] [id number] [place] [address] 15061- 6346 Nov, Back pain M54.9 [facility] [id number] [place] [address] 50294- 9307 Nov, Neuropathy G62.9 ; Mixed hyperlipidemia E78.2 ; Type 2 diabetes mellitus with diabetic autonomic (poly)neuropathy E11.43 and alf current use of insulin Z79.4 [facility] [id number] [address] Oct, [facility] [id number] [place] [address] 13293- 6355 Oct, Other dorsalgia M54.89 [facility] [id number] [place] [address] 76852- 3993 September, Primary insomnia F51.01 [facility] [id number] [place] [address] 67532- 6310 September, [facility] [id number] [place] [address] 97793- 2750 Aug, Other dorsalgia M54.89 [facility] [id number] [place] [address] 56068- 2604 Jul, [facility] [id number] [place] [address] 87014- 7750 Jul, Other dorsalgia M54.89 [facility] [id number] [place] [address] 95552- 4609 Jul, Diabetes E11.9 ; Back pain M54.9 ; Neuropathy G62.9 and Gastroparesis K31.84 [facility] [id number] [place] [address] 72013- 5442 Jun, [facility] [id number] [place] [address] 41203- 7527 Jun, Other dorsalgia M54.89 [facility] [id number] [place] [address] 85972- 0165 May, [facility] [id number] [place] [address] 45396- 7779 May, Radicular leg pain M54.10 and Other dorsalgia M54.89 [facility] [id number] [place] [address] 46310- 0676 Apr, [facility] [id number] [address] 00[address] Mar, [facility] [id number] [place] [address] 91583- 7099 Mar, [facility] [id number] [place] [address] 55177- 5284 Mar, Radicular leg pain M54.10 [facility] [id number] [place] [address] 30179- 8810 Feb, [facility] [id number] [place] [address] 76490- 2225 Feb, [facility] [id number] [place] [address] 80125- 0846 Feb, [facility] [id number] [place] [address] 92470- 0639 Jan, [facility] [id number] [place] [address] 49341- 0579 Jan, IBS (irritable bowel syndrome) 564.1 [facility] [id number] [place] [address] 26785- 3343 Jan, [facility] [id number] [place] [address] 02445- 7045 Jan, [facility] [id number] [place] [address] 67546- 5944 Jan, Diabetes mellitus without mention of complication, type II or unspecified type, not stated as uncontrolled 250.00 ; Gastroparesis 536.3 and Hypoacusis 389.9 [facility] [id number] [place] [address] 14414- 2526 Jan, [facility] [id number] [place] [address] 35516- 5426 Jan, [facility] [id number] [place] [address] 95397- 4300 Dec, [facility] [id number] [address] 3154 Dec, [facility] [id number] [address]29 Dec, [facility] [address] [address] 9213 Dec, Back pain 724.5 and Gastroparesis 536.3 [facility] [address] [address] 4618 Nov, [facility] [id number] [place] [address] [id number] Nov, Dental examination V72.2 [facility] [address] [address] 3877 Nov, [facility] [id number] [place] [address] 60335- 9930 Nov, [facility] [address], [place] [address] 8777 Nov, Depressive disorder, not elsewhere classified 311 and No condition on Annabella II V71.09 [facility] [address] [address] 1720 Nov, Diabetes 250.00 and Symptomatic menopausal or female climacteric states 627.2 [facility] [address] [address]- 1291 Oct, [facility] [id number] [address]- 7520 Oct, Lumbar strain 847.2 [facility] [address] 6836 Oct, Gastroparesis 536.3 and Unspecified myalgia and myositis 729.1 [facility] [address] [address]- 8204 14 Aug, 2014 [facility] [place] [facility] [address] [id number] [place] [address]- 4402 Aug, [facility] [place] [facility] [address] [id number] [place] [address]- 2179 Jul, [facility] [place] [facility] [address] [id number] [place] [address]- 1167 Jul, [facility] [place] [facility] [address] [id number] [place] [address]- 7127 Jul, [facility] [place] [facility] [address] [id number] [place] [address]- 7716 Jul, [facility] [place] [facility] [address] [id number] [place] [address]- 2829 Jul, [facility] [place] [facility] [address] [id number] [place] [address]- 7274 Jun, [facility] [place] [facility] [address] [id number] [place] [address]- 5578 Jun, [facility] [place] [facility] [address] [id number] [place] [address]- 4055 Jun, [facility] [place] [facility] [address] [id number] [place] [address]- 3693 May, [facility] [place] [facility] [address] [id number] [place] [address]- 1547 May, [facility] [place] [facility] [address] [id number] [place] [address]- 7965 Mar, [facility] [place] [facility] [address] [id number] [place] [address]- 1408 Mar, [facility] [place] [facility] [address] [id number] [place] [address]- 4608 Mar, [facility] [place] [facility] [address] [id number] [place] [address]- 4959 Mar, [facility] [place] [facility] [address] [id number] [place] [address]- 1385 Mar, [facility] [address] [id number] [place] [address]- 8385 Mar, [facility] [address] [id number] [place] [address]- 6371 Feb, [facility] [address] [id number] [place] [address]- 0175 Feb, [facility] [address] [id number] [place] [address]- 7439 Nov, [facility] [address] [id number] [place] [address]- 0358 Nov, [facility] [address] [id number] [place] [address]- 8802 Nov, [facility] [address] [id number] [place] [address]- 7617 Oct, [facility] [address] [id number] [place] [address]- 2843 September, [facility] [address] [id number] [place] [address]- 9498 Aug, [facility] [address] [id number] [place] [address]- 9178 15 Aug, 2012 [facility] [address] [id number] [place] [address]- 8853 Aug, [facility] [address] [id number] [place] [address]- 0571 Aug, [facility] [place] [facility] [address] [id number] [place] [address]86 Aug, [facility] [address] [id number] [place] [address]- 2315 Aug, [facility] [address] [id number] [place] [address]- 9848 Aug, [facility] [address] [id number] [place] [address]- 3741 Aug, [facility] [place] [facility] [address] [id number] [place] [address]- 4533 Jul, [facility] [address] [id number] [place] [address]- 9417 Jul, [facility] [place] [facility] [address] [id number] [place] [address]- 1567 Jun, [facility] [address] [id number] [place] [address]- 5087 Jun, [facility] [place] [facility] [address] [id number] [place] [address]- 6426 Jun, [facility] [place] [facility] [address] [id number] [place] [address]- 2029 08 Jun, 2012 [facility] [place] [facility] [address] [id number] [place] [address]- 8835 Jun, [facility] [place] [facility] [address] [id number] [place] [address]- 7750 Jun, [facility] [place] [facility] [address] [id number] [place] [address]- 1426 Jun, [facility] [place] [facility] [address] [id number] [place] [address]- 0744 May, [facility] [place] [facility] [address] [id number] [place] [address]- 9279 May, [facility] [place] [facility] [address] [id number] [place] [address]- 6790 May, [facility] [place] [facility] [address] [id number] [place] [address]- 9752 May, [facility] [place] [facility] [address] [facility] [id number] [place] [address]- 2481 Mar, [facility] [place] [facility] [address] [facility] [id number] [place] [address]- 2186 Mar, [facility] [address] [facility] [id number] [id number] 7941 Jan, IMMUNIZATIONS No Known Immunizations SOCIAL HISTORY [...]
--- OUTSIDE RECORDS SUMMARY | 2018-05-04 15:37 | XMS REPORT ---
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 Name Role Phone HORACE HIGGINS Unavailable PROBLEMS Type Condition ICD9-CM Code AIH48-CW Code Onset Dates Condition Status SNOMED Code Problem Asthma exacerbation J45.901 Active 778956626 Problem Diabetic polyneuropathy associated with type 2 diabetes mellitus E11.42 Active 32878986 Problem Reactive depression F32.9 Active 15073083 Problem Other chronic pain G89.29 Active 27262730 Problem Neuropathy G62.9 Active 130328912 Problem Irritable bowel syndrome with constipation K58.1 Active 652094909 Problem Back pain M54.9 Active 387254569 Problem Low TSH level R94.6 Active 835413087 Problem Migraine without aura and without status migrainosus, not intractable G43.009 Active 884838666 Problem PTSD (post-traumatic stress disorder) F43.10 Active 63523329 Problem Tobacco dependency F17.200 Active 07978735 Problem Annual physical exam Z00.00 Active 478561755 Problem Mixed hyperlipidemia E78.2 Active 630576659 Problem Type 2 diabetes mellitus with diabetic autonomic (poly)neuropathy E11.43 Active 99648561 Problem Diabetes E11.9 Active 44307131 Problem Gastroparesis K31.84 Active 969158565 Problem Anorexia R63.0 Active 14796518 Problem Weight loss R63.4 Active 141073508 Problem 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 [id number] [place] [address] Apr, [facility] [id number] [place] [address] 14493- 6222 Feb, [facility] [id number] [place] [address] 87893- 9622 Feb, PTSD (post-traumatic stress disorder) F43.10 [facility] [id number] [place] [address] 63743- 3294 Feb, PTSD (post-traumatic stress disorder) F43.10 [facility] [address] 86104- 8296 Feb, Pain in left shoulder M25.512 and Other chronic pain G89.29 [place] [address] 94914- 6719 Feb, LLQ pain R10.32 and Other dorsalgia M54.89 [place] [address] 54478- 2891 Feb, [facility] [address] 94029- 5205 Feb, Right lower quadrant abdominal pain R10.31 ; Pain in left shoulder M25.512 ; Other chronic pain G89.29 and Encounter for immunization Z23 [facility] [id number] [place] [address] 11092- 3415 Feb, [facility] [id number] [place] [address] 83144- 4731 Jan, Dysfunction of left eustachian tube H69.82 [facility] [id number] [place] [address] 17452- 9167 Jan, [facility] [address] 22232- 5134 Jan, [facility] [id number] [place] [address] 49258- 6487 Jan, [facility] [address] 66011- 6536 Jan, [facility] [id number] [place] [address] 94209- 3286 Jan, Left upper arm pain M79.622 [facility] [id number] [place] [address] 32267- 5679 Jan, [facility] [id number] [place] [address] 29208- 4875 Jan, PTSD (post-traumatic stress disorder) F43.10 and Tobacco dependency F17.200 [place] [address] 42026- 0102 Jan, Back pain M54.9 ; Type 2 diabetes mellitus with diabetic autonomic (poly)neuropathy E11.43 ; Neuropathy G62.9 ; Irritable bowel syndrome with constipation K58.1 ; Sprain of other part of left shoulder region, initial encounter S43.492A and Dysfunction of left eustachian tube H69.82 [place] [address] 10510- 7403 Jan, [place] [address] 86784- 3332 05 Jan, 2018 Neuropathy G62.9 ; LLQ pain R10.32 and Other dorsalgia M54.89 [place] [id number] [place] [address] 87844- 7975 Jan, [place] [address] 31293- 9062 Jan, [facility] [id number] [place] [address] 52047- 7164 Dec, Right upper quadrant abdominal pain R10.11 [place] [id number] [place] [address] 11537- 0845 Dec, PTSD (post-traumatic stress disorder) F43.10 [place] [id number] [place] [address] 56808- 5955 Dec, LLQ pain R10.32 [facility] [id number] [place] [address] 22848- 9860 Dec, Other dorsalgia M54.89 [place] [address] 34678- 1470 Dec, Neuropathy G62.9 [place] [address] 33617- 5497 Dec, [place] [address] 05861- 0010 Nov, Irritable bowel syndrome with constipation K58.1 ; Uncomplicated asthma, unspecified asthma severity J45.909 and Type 2 diabetes mellitus with diabetic autonomic (poly)neuropathy E11.43 [facility] [address] [id number] Nov, Dental examination Z01.20 [place] [address] 82059- 0187 Nov, Other dorsalgia M54.89 [place] [address] 72512- 3418 Nov, LLQ pain R10.32 ; Low TSH level R94.6 and Gastroparesis K31.84 [place] [id number] [place] [address] 46251- 1986 Nov, Anorexia R63.0 [place] [address] 53901- 1721 Nov, Asthma exacerbation J45.901 [place] [id number] [place] [address] 58747- 4357 Oct, PTSD (post-traumatic stress disorder) F43.10 [place] [id number] [place] [address] 96007- 2351 Oct, [place] [address] 88897- 7992 Oct, PTSD (post-traumatic stress disorder) F43.10 and Tobacco dependency F17.200 [facility] [id number] [place] [address] 51320- 0926 Oct, [place] [id number] [place], [place] [address] 409 Oct, Other dorsalgia M54.89 [place] [address] 47481- 9084 Oct, Anorexia R63.0 [place] [address] 47968- 5518 September, PTSD (post-traumatic stress disorder) F43.10 [place] [address] 45399- 081 September, Low TSH level R94.6 [place] [address] 65265- 9158 September, Other dorsalgia M54.89 [place] [id number] [place] [address] 37570- 7355 September, Annual physical exam Z00.00 and Migraine without aura and without status migrainosus, not intractable G43.009 [place] [id number] [place] [address] 92404- 3112 September, Abnormal TSH R94.6 and Dysfunction of left eustachian tube H69.82 [place] [id number] [place] [address] 51956- 1137 Aug, [facility] [id number] [place] [address] 16434- 0044 Aug, Anorexia R63.0 [facility] [id number] [place] [address] [id number] Aug, Dental examination Z01.20 and Xerostomia K11.7 [facility] [id number] [place] [address] 36269- 5448 Aug, Neuropathy G62.9 [facility] [id number] [place] [address] 54026- 7906 Aug, [facility] [address] 15960- 9736 Aug, Other dorsalgia M54.89 [facility] [id number] [place] [address] 28626 2546 Aug, Type 2 diabetes mellitus with diabetic autonomic (poly) neuropathy E11.43 ; Diabetic polyneuropathy associated with type 2 diabetes mellitus E11.42 ; Bronchitis J40 ; Gastroparesis K31.84 and Reactive depression F32.9 [facility] [address] 51376- 0830 Aug, PTSD (post-traumatic stress disorder) F43.10 [facility] [address] 95859- 5437 Aug, Other dorsalgia M54.89 and Anorexia R63.0 [facility] [id number] [place] [address] 48513- 2756 Jul, [facility] [address] 72461- 9066 Jul, Other dorsalgia M54.89 [facility] [id number] [place] [address] 60300- 1200 Jul, [facility] [id number] [place] [address] 95573 2547 Jul, [facility] [id number] [place] [address] 43083- 2549 Jul, PTSD (post-traumatic stress disorder) F43.10 [facility] [id number] [place] [address] 50626- 8776 Jul, [facility] [id number] [place] [address] 27447- 0302 Jul, [facility] [address] 95795 2546 Jul, [facility] [id number] [place] [address] 60996 2546 Jul, Anorexia R63.0 [facility] [id number] [place] [address] 64427 2546 Jun, [facility] [id number] [place] [address] 88746 2546 Jun, Vaginal discharge N89.8 ; Visit for gynecologic examination Z01.419 and Pelvic pressure in female R10.2 [facility] [id number] [place] [address] 46074 2546 Jun, [facility] [address] 20761- 2736 Jun, Other dorsalgia M54.89 [facility] [address] 61648- 0166 Jun, [facility] [id number] [place] [address] 66653- 3957 Jun, [facility] [address] 93939- 9056 Jun, [facility] [id number] [place] [address] 35191- 8516 May, Back pain M54.9 [facility] [id number] [place] [address] 97918 2546 May, Anorexia R63.0 [facility] [id number] [place] [address] 25115 2546 May, Other dorsalgia M54.89 [facility] [id number] [place] [address] 01226 2546 May, [facility] [id number] [place] [address] 64214 2546 May, Bronchitis J40 [facility] [address] 82613- 8929 May, Type 2 diabetes mellitus with diabetic autonomic (poly) neuropathy E11.43 ; [facility] current use of insulin Z79.4 ; Back pain M54.9 and Neuropathy G62.9 [facility] [address] 92508- 5207 May, Left breast mass N63.20 [facility] [address] 78088- 7581 May, [facility] [address] 06992- 4364 Apr, Other dorsalgia M54.89 [facility] [address] 34606- 1820 Apr, Anorexia R63.0 [facility] [address] 67428- 9751 Apr, Anorexia R63.0 [facility] [address] 64327- 9362 Apr, Mass of left breast N63.20 [facility] [address] 29242- 5148 Apr, [facility] [address] 75439- 9374 Apr, [facility] [address] 26232- 3222 Apr, Diarrhea of presumed infectious origin A09 [facility] [address] 26329- 2022 Apr, Encounter for immunization Z23 [facility] [address] 41534- 5043 Apr, [facility] [address] 48533- 3116 Mar, Other dorsalgia M54.89 [facility] [id number] [place] [address] 30698- 4963 Mar, [facility] [address] 73121- 8846 Mar, [facility] [id number] [place] [address] 65732- 9726 Mar, Anorexia R63.0 [facility] [address] 38401 2546 Mar, [facility] [id number] [place] [address] 04115- 3724 Mar, Other dorsalgia M54.89 [facility] [id number] [place] [address] 36159- 3056 Mar, [facility] [address] 77031- 2677 Mar, Encounter for immunization Z23 [facility] [id number] [place] [address] 82888- 0491 Feb, Anorexia R63.0 [facility] [address] 02773- 0561 Feb, Diabetes E11.9 [facility] [id number] [place] [address] 77503- 9658 Feb, Back pain M54.9 and Diabetes E11.9 [facility] [id number] [place] [address] 38813- 3184 Feb, Diabetes E11.9 [facility] [id number] [place] [address] 18403- 7014 Feb, Neuropathy G62.9 [facility] [id number] [place] [address] 78211- 2734 Feb, Encounter for immunization Z23 ; Epigastric pain R10.13 ; Weight loss, abnormal R63.4 and Neuropathy G62.9 [facility] [address] [place] [id number] Feb, [facility] [id number] [place] [address] 56662- 9763 Feb, [facility] [id number] [place] [address] 28074- 8025 Feb, Intractable vomiting with nausea, unspecified vomiting type R11.2 [facility] [id number] [place] [address] 56209 -6037 Feb, Chronic nausea R11.0 [facility] [id number] [place] [address] 95796- 9246 Feb, Other dorsalgia M54.89 [facility] [id number] [place] [address] 82653- 6099 Jan, [facility] [id number] [place] [address] 97420- 8558 Jan, [facility] [id number] [place] [address] 32990- 2194 Jan, [facility] [id number] [place] [address] 88242- 7407 Jan, [facility] [id number] [place] [address] 52430- 8722 Jan, Asthma exacerbation J45.901 ; Bronchitis J40 and Neuropathy G62.9 [facility] [id number] [place] [address] 47255- 4318 Jan, Anorexia R63.0 [facility] [id number] [place] [address] 60457- 6931 Jan, Other dorsalgia M54.89 [facility] [id number] [place] [address] 33489- 8472 Dec, [facility] [id number] [place] [address] 77900- 7285 Dec, [facility] [id number] [place] [address] 26671- 4204 15 Dec, 2016 Anorexia R63.0 [facility] [id number] [place] [address] 69460- 5592 Dec, Primary insomnia F51.01 [facility] [id number] [place] [address] 75804- 2981 Dec, Other dorsalgia M54.89 [facility] [id number] [place] [address] 51458- 6756 Dec, [facility] [id number] [place] [address] 08704- 5678 Nov, [facility] [id number] [place] [address] 28342- 2890 Nov, [facility] [id number] [place] [address] 66903- 4624 Nov, [facility] [id number] [place] [address] 92524- 8545 Nov, History of colon polyps Z86.010 [facility] [id number] [place] [address] 02584- 3214 Nov, Weight loss R63.4 ; Nausea and vomiting, intractability of vomiting not specified, unspecified vomiting type R11.2 and Abnormal LFTs R79.89 [facility] [id number] [place] [address] 47264- 6153 Nov, [facility] [id number] [place] [address] 93994- 2725 Nov, Neuropathy G62.9 and Pain in right knee M25.561 [facility] [id number] [place] [address] 34702- 9507 Nov, Back pain M54.9 [facility] [address] [address]- 8553 Nov, [facility] [address] [id number] [address]- 1458 08 Nov, 2016 Bronchitis J40 [facility] [id number] [place] [address] 59976- 2305 03 Nov, 2016 Weight loss R63.4 [facility] [id number] [place] [address] 41706- 2383 16 Oct, 2016 Back pain M54.9 [facility] [id number] [place] [address] 39887- 5039 Oct, [facility] [id number] [place] [address] 74067- 7365 14 Oct, 2016 Back pain M54.9 [facility] [id number] [place] [address] 39715- 4018 Oct, Type 2 diabetes mellitus without complications E11.9 and Bronchitis J40 [facility] [id number] [place] [address] 03592- 7563 Oct, [facility] [id number] [place] [address] 97341- 9309 Oct, [facility] [id number] [place] [address] 07654- 3673 September, Gastroparesis K31.84 ; Type 2 diabetes mellitus with diabetic autonomic (poly)neuropathy E11.43 and Neuropathy G62.9 [place] [id number] [place] [address] 02020- 6432 September, Other dorsalgia M54.89 [facility] [id number] [place] [address] 58008- 5993 September, [facility] [id number] [place] [address] 67906- 0556 September, [facility] [id number] [place] [address] 86803- 7995 Aug, Gastroparesis K31.84 and Radicular leg pain M54.10 [facility] [id number] [place] [address] 20911- 7690 Aug, Anorexia R63.0 [facility] [address] 43720- 4267 Aug, Bronchitis J40 [facility] [id number] [place] [address] 25549- 8940 Aug, Back pain M54.9 [facility] [address] 56310- 5580 Aug, Routine gynecological examination Z01.419 ; Routine screening for STI (sexually transmitted infection) Z11.3 and Yeast infection of the vagina B37.3 [facility] [id number] [place] [address] 58644- 7581 Jul, Other dorsalgia M54.89 [facility] [address] 77322- 4950 Jul, Diabetes E11.9 and Gastroparesis K31.84 [facility] [address] 87619- 9318 Jun, [facility] [address] 67465- 9987 Jun, Back pain M54.9 [facility] [address] 39841- 8399 14 Jun, 2016 Neuropathy G62.9 [facility] [id number] [place] [address] [id number] 02 Jun, 2016 Encounter for dental examination Z01.20 [facility] [address] 97304- 0822 Jun, Gastroparesis 536.3 and Anorexia R63.0 [facility] [id number] [place] [address] 13524- 7770 May, Other dorsalgia M54.89 [facility] [address] 03810 2542 May, Periumbilical abdominal pain R10.33 ; Weight loss R63.4 and Gastroparesis K31.84 [facility] [address] 44048 2546 May, Back pain M54.9 [facility] [address] 71223- 2546 Apr, Anorexia R63.0 [facility] [address] 70266- 2546 Apr, Anorexia R63.0 [facility] [address] 28130 2546 16 Apr, 2016 Back pain M54.9 [facility] [address] 96400 2546 15 Apr, 2016 Back pain M54.9 [facility] [address] 69127 2546 Apr, [facility] [address] 91228- 2546 Apr, Bronchitis J40 and Neuropathy G62.9 [facility] [id number] [place] [address] 80342 2546 Apr, Neuropathy G62.9 [place] [address] 10479 2546 05 Apr, 2016 [facility] [id number] [place] [address] 70596 2546 Apr, Back pain M54.9 [facility] [address] 31958 2546 30 Mar, 2016 Type 2 diabetes mellitus with diabetic autonomic (poly) neuropathy E11.43 [place] [id number] [place] [id number] 2546 28 Mar, 2016 Type 2 diabetes mellitus without complications E11.9 [facility] [id number] [place] [address] [phone]- 4973 Mar, Neuropathy G62.9 [facility] [address] 14872- 3548 Mar, [facility] [id number] [place] [address] [id number]- 4319 Mar, Breast cancer screening Z12.39 [facility] [address] [address]- 2801 Mar, Other dorsalgia M54.89 [facility] [id number] [place] [address] [id number]- 9308 Feb, [facility] [id number] [place] [address] 88892- 7005 30 Jan, 2016 Neuropathy G62.9 ; Type 2 diabetes mellitus with diabetic autonomic (poly)neuropathy E11.43 ; Uncomplicated asthma, unspecified asthma severity J45.909 and Encounter for immunization Z23 [facility] [id number] [place] [address] 03249- 1530 Jan, [place] [address] 850[address]- 5101 Jan, [facility] [id number] [place] [address] [phone]- [phone] Dec, [facility] [id number] [place] [address] [phone]- [phone] Dec, [facility] [id number] [place] [address] [phone]- 9546 Nov, [facility] [id number] [place] [address] 63480- 2964 Nov, Back pain M54.9 [facility] [id number] [place] [address] 28474- 3784 Nov, Neuropathy G62.9 ; Mixed hyperlipidemia E78.2 ; Type 2 diabetes mellitus with diabetic autonomic (poly)neuropathy E11.43 and [facility] current use of insulin Z79.4 [facility] [address] [id number] [address] Oct, [facility] [id number] [place] [address] 81686- 1371 Oct, Other dorsalgia M54.89 [facility] [id number] [place] [address] 28204- 4164 September, Primary insomnia F51.01 [facility] [id number] [place] [address] 64156- 2054 September, [facility] [id number] [place] [address] 30368- 8199 Aug, Other dorsalgia M54.89 [facility] [id number] [place] [address] 74990- 2752 Jul, [facility] [id number] [place] [address] 93953- 5156 Jul, Other dorsalgia M54.89 [facility] [id number] [place] [address] 98873- 7411 Jul, Diabetes E11.9 ; Back pain M54.9 ; Neuropathy G62.9 and Gastroparesis K31.84 [facility] [id number] [place] [address] 33596- 4006 Jun, [facility] [id number] [place] [address] 61348- 1067 Jun, Other dorsalgia M54.89 [facility] [id number] [place] [address] 51926- 1138 May, [facility] [id number] [place] [address] 91759- 7462 May, Radicular leg pain M54.10 and Other dorsalgia M54.89 [facility] [id number] [place] [address] 25162- 0861 Apr, [facility] [address] [address] Mar, [facility] [id number] [place] [address] 88894- 7519 Mar, [facility] [id number] [place] [address] 07521- 1284 Mar, Radicular leg pain M54.10 [facility] [id number] [place] [address] 85501- 7704 Feb, [facility] [id number] [place] [address] 55494- 1619 Feb, [facility] [id number] [place] [address] 01085- 6812 Feb, [facility] [id number] [place] [address] 58007- 8081 Jan, [facility] [id number] [place] [address] 25092- 7358 Jan, IBS (irritable bowel syndrome) 564.1 [facility] [id number] [place] [address] 80867- 3873 Jan, [facility] [id number] [place] [address] 23968- 6002 Jan, [facility] [id number] [place] [address] 22192- 5799 Jan, Diabetes mellitus without mention of complication, type II or unspecified type, not stated as uncontrolled 250.00 ; Gastroparesis 536.3 and Hypoacusis 389.9 [facility] [id number] [place] [address] 61494- 8548 Jan, [facility] [id number] [place] [address] 72309- 9441 Jan, [facility] [id number] [place] [address] 37870- 7326 Dec, [facility] [id number] [address] 5786 Dec, [facility] [address] [address] Dec, [facility] [address], [place] [address] 4568 Dec, Back pain 724.5 and Gastroparesis 536.3 [facility] [address] [address]28 Nov, [facility] [id number] [place] [address] [id number] Nov, Dental examination V72.2 [facility] [address], [place] [address] 4000 Nov, [facility] [id number] [place] [address] 83699- 5835 Nov, [facility] [address] [address] 8699 Nov, Depressive disorder, not elsewhere classified 311 and No condition on [place] II V71.09 [facility] [address] [address] 1670 Nov, Diabetes 250.00 and Symptomatic menopausal or female climacteric states 627.2 [facility] [address], [place] [address] 1427 Oct, [facility] [address] [id number] [address] 2496 Oct, Lumbar strain 847.2 [facility] [address] 8416 Oct, Gastroparesis 536.3 and Unspecified myalgia and myositis 729.1 [facility] [address], [place] [address] 7669 14 Aug, 2014 [facility] [place] [facility] [address] [id number] [place] [address]- 3880 Aug, [facility] [place] [facility] [address] [id number] [place] [address]- 2350 Jul, [facility] [place] [facility] [address] [id number] [place] [address]- 4490 Jul, [facility] [place] [facility] [address] [id number] [place] [address]- 1407 Jul, [facility] [place] [facility] [address] [id number] [place] [address]- 5707 Jul, [facility] [place] [facility] [address] [id number] [place] [address]- 5331 Jul, [facility] [place] [facility] [address] [id number] [place] [address]- 6072 Jun, [facility] [place] [facility] [address] [id number] [place] [address]- 2427 Jun, [facility] [place] [facility] [address] [id number] [place] [address]- 4241 Jun, [facility] [place] [facility] [address] [id number] [place] [address]- 2938 May, [facility] [place] [facility] [address] [id number] [place] [address]- 6315 May, [facility] [place] [facility] [address] [id number] [place] [address]- 3567 Mar, [facility] [place] [facility] [address] [id number] [place] [address]- 9350 Mar, [facility] [place] [facility] [address] [id number] [place] [address]- 3545 Mar, [facility] [place] [facility] [address] [id number] [place] [address]- 4054 Mar, [facility] [place] [facility] [address] [id number] [place] [address]- 5191 Mar, [facility] [address] [id number] [place] [address]- 0406 Mar, [facility] [address] [id number] [place] [address]- 9206 Feb, [facility] [address] [id number] [place] [address]- 9937 Feb, [facility] [address] [id number] [place] [address]- 4650 Nov, [facility] [address] [id number] [place] [address]- 0926 Nov, [facility] [address] [id number] [place] [address]- 1810 Nov, [facility] [address] [id number] [place] [address]- 0799 Oct, [facility] [address] [id number] [place] [address]- 6760 September, [facility] [address] [id number] [place] [address]- 7508 Aug, [facility] [address] [id number] [place] [address]- 6605 15 Aug, 2012 [facility] [address] [id number] [place] [address]- 8486 Aug, [facility] [address] [id number] [place] [address]- 0697 Aug, [facility] [place] [facility] [address] [id number] [place] 1854 Aug, [facility] [address] [id number] [place] [address]- 3973 Aug, [facility] [address] [id number] [place] [address]- 6550 Aug, [facility] [address] [id number] [place] [address]- 9306 Aug, [facility] [place] [facility] [address] [id number] [place] [address]- 3493 Jul, [facility] [address] [id number] [place] [address]- 7778 Jul, [facility] [place] [facility] [address] [id number] [place] [address]- 6855 Jun, [facility] [address] [id number] [place] [address]- 9954 Jun, [facility] [place] [facility] [address] [id number] [place] [address]- 1180 Jun, [facility] [place] [facility] [address] [id number] [place] [address]- 2098 08 Jun, 2012 [facility] [place] [facility] [address] [id number] [place] [address]- 8153 Jun, [facility] [place] [facility] [address] [id number] [place] [address]- 7211 Jun, [facility] [place] [facility] [address] [id number] [place] [address]- 9796 Jun, [facility] [place] [facility] [address] [id number] [place] [address]- 7740 May, [facility] [place] [facility] [address] [id number] [place] [address]- 6598 May, [facility] [place] [facility] [address] [id number] [place] [address]- 4132 May, [facility] [place] [facility] [address] [id number] [place] [address]- 0462 May, [facility] [place] [facility] [address] [facility] [id number] [place] [address]- 8258 Mar, [facility] [place] [facility] [address] [facility] [id number] [place] [address]- 2546 Mar, [facility] [address] [facility] [id number] [place] [address]- 5907 Jan, IMMUNIZATIONS No Known Immunizations SOCIAL HISTORY Never Assessed REASON FOR VISIT Ambien Refill PLAN OF CARE VITAL SIGNS MEDICATIONS [...]
--- OUTSIDE RECORDS SUMMARY | 2018-05-04 15:38 | XMS REPORT ---
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 Name Role Phone DELFIN RACH Unavailable PROBLEMS Type Condition ICD9-CM Code FNN56-MM Code Onset Dates Condition Status SNOMED Code Problem Asthma exacerbation J45.901 Active 503471946 Problem Diabetic polyneuropathy associated with type 2 diabetes mellitus E11.42 Active 04414626 Problem Reactive depression F32.9 Active 38274002 Problem Other chronic pain G89.29 Active 46235142 Problem Neuropathy G62.9 Active 641013527 Problem Irritable bowel syndrome with constipation K58.1 Active 362086739 Problem Back pain M54.9 Active 205530098 Problem Low TSH level R94.6 Active 363914182 Problem Migraine without aura and without status migrainosus, not intractable G43.009 Active 126496370 Problem PTSD (post-traumatic stress disorder) F43.10 Active 10373771 Problem Tobacco dependency F17.200 Active 71271339 Problem Annual physical exam Z00.00 Active 086482139 Problem Mixed hyperlipidemia E78.2 Active 252207443 Problem Type 2 diabetes mellitus with diabetic autonomic (poly)neuropathy E11.43 Active 17592045 Problem Diabetes E11.9 Active 83363744 Problem Gastroparesis K31.84 Active 412588529 Problem Anorexia R63.0 Active 49035844 Problem Weight loss R63.4 Active 357195930 Problem 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 [id number] [address] Apr, [facility] [id number] [place] [address] 85147- 4595 Feb, [facility] [id number] [place] [address] 98434- 4958 Feb, [facility] [id number] [place] [address] 53787- 3578 Feb, PTSD (post-traumatic stress disorder) F43.10 [facility] [id number] [place] [address] 78273- 0714 Feb, PTSD (post-traumatic stress disorder) F43.10 [facility] [id number] [place] [address] 15379- 6044 Feb, Pain in left shoulder M25.512 and Other chronic pain G89.29 [place] [address] 79907- 7747 Feb, LLQ pain R10.32 and Other dorsalgia M54.89 [place] [id number] [place] [address] 29437- 1112 Feb, [facility] [address] 71491- 2559 Feb, Right lower quadrant abdominal pain R10.31 ; Pain in left shoulder M25.512 ; Other chronic pain G89.29 and Encounter for immunization Z23 [place] [id number] [place] [address] 81471- 6693 Feb, [facility] [id number] [place] [address] 47021- 5644 Jan, Dysfunction of left eustachian tube H69.82 [facility] [id number] [place] [address] 27407- 0040 Jan, [facility] [id number] [place] [address] 26780- 1988 Jan, [facility] [id number] [place] [address] 85086- 3027 Jan, [facility] [id number] [place] [address] 82845- 0273 Jan, [facility] [id number] [place] [address] 69619- 9508 Jan, Left upper arm pain M79.622 [facility] [address] 29150- 4238 Jan, [facility] [address] 21722- 6570 Jan, PTSD (post-traumatic stress disorder) F43.10 and Tobacco dependency F17.200 [facility] [id number] [place] [address] 58732- 8308 Jan, Back pain M54.9 ; Type 2 diabetes mellitus with diabetic autonomic (poly)neuropathy E11.43 ; Neuropathy G62.9 ; Irritable bowel syndrome with constipation K58.1 ; Sprain of other part of left shoulder region, initial encounter S43.492A and Dysfunction of left eustachian tube H69.82 [facility] [id number] [place] [address] 21170- 0313 Jan, [facility] [address] 04518- 4708 Jan, Neuropathy G62.9 ; LLQ pain R10.32 and Other dorsalgia M54.89 [facility] [id number] [place] [address] 42511- 2166 Jan, [facility] [id number] [place] [address] 42728- 9401 Jan, [facility] [address] 51862- 8381 Dec, Right upper quadrant abdominal pain R10.11 [facility] [id number] [place] [address] 61561- 1745 Dec, PTSD (post-traumatic stress disorder) F43.10 [place] [id number] [place] [address] 17969- 5456 Dec, LLQ pain R10.32 [place] [address] 26655- 0090 Dec, Other dorsalgia M54.89 [place] [address] 66645- 1081 Dec, Neuropathy G62.9 [facility] [address] 89993- 8905 Dec, [place] [address] 06362- 0592 Nov, Irritable bowel syndrome with constipation K58.1 ; Uncomplicated asthma, unspecified asthma severity J45.909 and Type 2 diabetes mellitus with diabetic autonomic (poly)neuropathy E11.43 [facility] [address] [id number] Nov, Dental examination Z01.20 [place] [address] 96668- 3926 Nov, Other dorsalgia M54.89 [place] [address] 65266- 1512 Nov, LLQ pain R10.32 ; Low TSH level R94.6 and Gastroparesis K31.84 [place] [address] 72249- 8085 Nov, Anorexia R63.0 [place] [address] 49705- 5638 Nov, Asthma exacerbation J45.901 [place] [address] 69815- 1849 Oct, PTSD (post-traumatic stress disorder) F43.10 [place] [id number] [place] [address] 21134- 4301 Oct, [place] [id number] [place] [address] 81186- 4846 19 Oct, 2017 PTSD (post-traumatic stress disorder) F43.10 and Tobacco dependency F17.200 [place] [address] 39736- 4038 18 Oct, 2017 [place] [address] 37963- 4034 Oct, Other dorsalgia M54.89 [place] [address] 59056- 2752 Oct, Anorexia R63.0 [place] [address] 14576- 4712 September, PTSD (post-traumatic stress disorder) F43.10 [place] [address] 71976- 7156 September, Low TSH level R94.6 [place] [address] 56291- 1593 September, Other dorsalgia M54.89 [place] [address] [id number]- 3413 September, Annual physical exam Z00.00 and Migraine without aura and without status migrainosus, not intractable G43.009 [place] [id number] [place] [address] 24162- 4247 September, Abnormal TSH R94.6 and Dysfunction of left eustachian tube H69.82 [place] [id number] [place] [address] 69469- 1228 Aug, [place] [address] 88101- 4772 Aug, Anorexia R63.0 [facility] [address] [id number] Aug, Dental examination Z01.20 and Xerostomia K11.7 [place] [id number] [place] [address] 31836- 4506 Aug, Neuropathy G62.9 [facility] [address] 84191 2546 Aug, [facility] [id number] [place] [address] 19142- 3296 Aug, Other dorsalgia M54.89 [facility] [id number] [place] [address] 70486 2548 Aug, Type 2 diabetes mellitus with diabetic autonomic (poly) neuropathy E11.43 ; Diabetic polyneuropathy associated with type 2 diabetes mellitus E11.42 ; Bronchitis J40 ; Gastroparesis K31.84 and Reactive depression F32.9 [facility] [id number] [place] [address] 36562- 7080 Aug, PTSD (post-traumatic stress disorder) F43.10 [facility] [id number] [place] [address] 19437- 5985 Aug, Other dorsalgia M54.89 and Anorexia R63.0 [facility] [id number] [place] [address] 91540- 7548 Jul, [facility] [id number] [place] [address] 80143- 3545 Jul, Other dorsalgia M54.89 [facility] [id number] [place] [address] 86977 2546 Jul, [facility] [id number] [place] [address] 81216 2545 Jul, [facility] [address] 02034- 3319 Jul, PTSD (post-traumatic stress disorder) F43.10 [facility] [id number] [place] [address] 76070 2541 Jul, [facility] [id number] [place] [address] 68773- 3590 Jul, [facility] [address] 69310- 2686 Jul, [facility] [address] 18220- 9886 Jul, Anorexia R63.0 [facility] [address] 58683- 8316 Jun, [facility] [address] 93293- 1846 Jun, Vaginal discharge N89.8 ; Visit for gynecologic examination Z01.419 and Pelvic pressure in female R10.2 [facility] [address] 50380- 7826 Jun, [facility] [address] 36332- 9702 Jun, Other dorsalgia M54.89 [facility] [id number] [place] [address] 64413- 2982 Jun, [facility] [address] 77221- 4346 Jun, [facility] [id number] [place] [address] 21641- 3564 Jun, [facility] [id number] [place] [address] 87266- 3898 May, Back pain M54.9 [facility] [id number] [place] [address] 76589- 9816 May, Anorexia R63.0 [facility] [address] 32083- 6576 May, Other dorsalgia M54.89 [facility] [address] 98815- 7636 May, [facility] [address] 40860- 8964 May, Bronchitis J40 [place] [address] 31588- 5806 May, Type 2 diabetes mellitus with diabetic autonomic (poly) neuropathy E11.43 ; 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.4 ; Back pain M54.9 and Neuropathy G62.9 [place] [address] 85656- 6647 May, Left breast mass N63.20 [place] [address] 54924- 5741 May, [place] [address] 01019- 7389 Apr, Other dorsalgia M54.89 [place] [address] 36545- 5488 Apr, Anorexia R63.0 [place] [address] 04090- 4964 Apr, Anorexia R63.0 [place] [address] 22745- 3554 Apr, Mass of left breast N63.20 [place] [address] 04678- 9294 Apr, [place] [address] 40128- 2942 Apr, [place] [address] 37014- 7222 Apr, Diarrhea of presumed infectious origin A09 [place] [address] 89767- 0402 Apr, Encounter for immunization Z23 [place] [address] 80358- 9447 05 Apr, 2017 [place] [id number] [place] [address] 84349- 5377 Mar, Other dorsalgia M54.89 [facility] [id number] [place] [address] 99535- 4115 Mar, [facility] [id number] [place] [address] 21880- 5054 Mar, [facility] [address] 25510- 3021 Mar, Anorexia R63.0 [facility] [address] 08426- 6496 Mar, [facility] [id number] [place] [address] 44722- 9223 Mar, Other dorsalgia M54.89 [facility] [address] 48892- 5424 Mar, [facility] [id number] [place] [address] 69891- 7685 Mar, Encounter for immunization Z23 [facility] [id number] [place] [address] 74079- 4624 Feb, Anorexia R63.0 [facility] [id number] [place] [address] 84456- 9314 Feb, Diabetes E11.9 [facility] [id number] [place] [address] 26515- 0440 Feb, Back pain M54.9 and Diabetes E11.9 [facility] [id number] [place] [address] 69594- 7939 Feb, Diabetes E11.9 [facility] [id number] [place] [address] 96280- 3812 Feb, Neuropathy G62.9 [facility] [id number] [place] [address] 93102- 1741 Feb, Encounter for immunization Z23 ; Epigastric pain R10.13 ; Weight loss, abnormal R63.4 and Neuropathy G62.9 [facility] [id number] [place] [address] [id number] Feb, [facility] [id number] [place] [address] 57552- 4593 Feb, [facility] [address] 59715- 1250 Feb, Intractable vomiting with nausea, unspecified vomiting type R11.2 [facility] [id number] [place] [address] 93479 -6726 Feb, Chronic nausea R11.0 [facility] [address] 14254- 6524 Feb, Other dorsalgia M54.89 [facility] [address] 04350- 6646 Jan, [facility] [id number] [place] [address] 78039- 2955 Jan, [facility] [address] 05815- 4232 Jan, [facility] [id number] [place] [address] 50243- 7161 Jan, [facility] [id number] [place] [address] 67361- 8437 Jan, Asthma exacerbation J45.901 ; Bronchitis J40 and Neuropathy G62.9 [facility] [id number] [place] [address] 45332- 6771 Jan, Anorexia R63.0 [facility] [address] 36413- 4833 Jan, Other dorsalgia M54.89 [facility] [address] 34221- 3583 Dec, [facility] [address] [id number] [address]- 2529 16 Dec, 2016 [facility] [id number] [place] [address] 88291- 6339 Dec, Anorexia R63.0 [facility] [id number] [place] [address] 72153- 1599 Dec, Primary insomnia F51.01 [facility] [id number] [place] [address] 20230- 1742 Dec, Other dorsalgia M54.89 [facility] [id number] [place] [address] 97869- 5116 Dec, [facility] [id number] [place] [address] 64092- 7286 Nov, [facility] [id number] [place] [address] 11850- 2466 Nov, [facility] [id number] [place] [address] 25187- 9493 Nov, [facility] [id number] [place] [address] 65177- 2074 Nov, History of colon polyps Z86.010 [facility] [id number] [place] [address] 86487- 2636 Nov, Weight loss R63.4 ; Nausea and vomiting, intractability of vomiting not specified, unspecified vomiting type R11.2 and Abnormal LFTs R79.89 [facility] [address] [place] [address] 59011- 3032 Nov, [facility] [id number] [place] [address] 40236- 2507 Nov, Neuropathy G62.9 and Pain in right knee M25.561 [facility] [id number] [place] [address] 09147- 5110 Nov, Back pain M54.9 [facility] [address] [address]- 9993 Nov, [facility] [id number] [place] [address] 68309- 4737 Nov, Bronchitis J40 [facility] [id number] [place] [address] 33628- 9253 Nov, Weight loss R63.4 [facility] [id number] [place] [address] 44874- 9288 Oct, Back pain M54.9 [facility] [id number] [place] [address] 71256- 7867 Oct, [facility] [id number] [place] [address] 87358- 6806 Oct, Back pain M54.9 [facility] [id number] [place] [address] 15661- 2099 Oct, Type 2 diabetes mellitus without complications E11.9 and Bronchitis J40 [facility] [id number] [place] [address] 93429- 6455 Oct, [facility] [id number] [place] [address] 90838- 8663 Oct, [facility] [id number] [place] [address] 48449- 3580 September, Gastroparesis K31.84 ; Type 2 diabetes mellitus with diabetic autonomic (poly)neuropathy E11.43 and Neuropathy G62.9 [facility] [address] [address]- 7739 September, Other dorsalgia M54.89 [facility] [id number] [place] [address] 16990- 9874 September, [facility] [id number] [place] [address] 88783- 7552 September, [facility] [id number] [place] [address] 48990- 3150 Aug, Gastroparesis K31.84 and Radicular leg pain M54.10 [facility] [address] 74455- 5207 Aug, Anorexia R63.0 [facility] [id number] [place] [address] 09389- 0726 Aug, Bronchitis J40 [facility] [address] 60022- 1373 Aug, Back pain M54.9 [place] [address] 29200- 2397 Aug, Routine gynecological examination Z01.419 ; Routine screening for STI (sexually transmitted infection) Z11.3 and Yeast infection of the vagina B37.3 [place] [address] 21866- 5891 Jul, Other dorsalgia M54.89 [facility] [address] 98132- 1077 Jul, Diabetes E11.9 and Gastroparesis K31.84 [place] [address] 11268- 7447 Jun, [facility] [address] 01230- 1035 Jun, Back pain M54.9 [facility] [address] 80211- 0539 Jun, Neuropathy G62.9 [facility] [id number] [place] [address] [id number] 02 Jun, 2016 Encounter for dental examination Z01.20 [facility] [address] 41487- 1710 01 Jun, 2016 Gastroparesis 536.3 and Anorexia R63.0 [facility] [address] 35842- 8024 May, Other dorsalgia M54.89 [facility] [address] 01106 2546 10 May, 2016 Periumbilical abdominal pain R10.33 ; Weight loss R63.4 and Gastroparesis K31.84 [facility] [address] 32797 2546 May, Back pain M54.9 [facility] [address] 97525 2546 Apr, Anorexia R63.0 [facility] [address] 16911 2546 Apr, Anorexia R63.0 [facility] [address] 40200 2546 16 Apr, 2016 Back pain M54.9 [facility] [address] 49624 2546 Apr, Back pain M54.9 [facility] [address] 34031 2546 Apr, [facility] [address] 35314 2546 Apr, Bronchitis J40 and Neuropathy G62.9 [facility] [address] 62212 2546 Apr, Neuropathy G62.9 [facility] [address] 76808 2546 05 Apr, 2016 [facility] [address] 54020 2546 Apr, Back pain M54.9 [facility] [id number] [place] [address] 34363 2546 Mar, Type 2 diabetes mellitus with diabetic autonomic (poly) neuropathy E11.43 [facility] [address] [place] [address]- 5460 Mar, Type 2 diabetes mellitus without complications E11.9 [facility] [id number] [place] [address] 33377- 9939 Mar, Neuropathy G62.9 [facility] [id number] [place] [address] 12693- 1008 Mar, [facility] [address] 77701- 1273 Mar, Breast cancer screening Z12.39 [facility] [address] 79698- 7279 Mar, Other dorsalgia M54.89 [facility] [id number] [place] [address] 92067- 0304 Feb, [facility] [address] 69644- 1127 30 Jan, 2016 Neuropathy G62.9 ; Type 2 diabetes mellitus with diabetic autonomic (poly)neuropathy E11.43 ; Uncomplicated asthma, unspecified asthma severity J45.909 and Encounter for immunization Z23 [facility] [id number] [place] [address] 43685- 9742 09 Jan, 2016 [facility] [id number] [place] [address] 68915- 0748 Jan, [facility] [id number] [place] [address] [phone]- [phone] Dec, [facility] [id number] [place] [address] 30930- 8801 Dec, [facility] [id number] [place] [address] [phone]- 4426 Nov, [facility] [id number] [place] [address] 33952- 5637 15 Nov, 2015 Back pain M54.9 [facility] [id number] [place] [address] 32701- 4062 Nov, Neuropathy G62.9 ; Mixed hyperlipidemia E78.2 ; Type 2 diabetes mellitus with diabetic autonomic (poly)neuropathy E11.43 and 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.4 [facility] [id number] [place] [address] 59812- 6198 Oct, [facility] [id number] [place] [address] 11666- 0983 Oct, Other dorsalgia M54.89 [facility] [id number] [place] [address] 60489- 5910 September, Primary insomnia F51.01 [place] [address] 49125- 5770 September, [facility] [id number] [place] [address] 03787- 3956 Aug, Other dorsalgia M54.89 [facility] [id number] [place] [address] 35505- 0167 Jul, [facility] [id number] [place] [address] 06686- 3964 Jul, Other dorsalgia M54.89 [facility] [id number] [place] [address] 10424- 2951 Jul, Diabetes E11.9 ; Back pain M54.9 ; Neuropathy G62.9 and Gastroparesis K31.84 [facility] [id number] [place] [address] 90304- 2886 Jun, [facility] [id number] [place] [address] 11342- 6955 Jun, Other dorsalgia M54.89 [facility] [id number] [place] [address] 72474- 1818 May, [facility] [id number] [place] [address] 82949- 2332 May, Radicular leg pain M54.10 and Other dorsalgia M54.89 [facility] [id number] [place] [address] 24901- 8183 Apr, [facility] [id number] [place] [address] [phone]- [phone] Mar, [facility] [id number] [place] [address] [phone]- 5291 Mar, [facility] [id number] [place] [address] 16721- 1866 Mar, Radicular leg pain M54.10 [facility] [id number] [address] [place] [address] 10669- 6175 Feb, [facility] [id number] [place] [address] 36137- 0183 Feb, [facility] [id number] [place] [address] 80830- 4026 Feb, [facility] [id number] [place] [address] 76397- 3422 Jan, [facility] [id number] [place] [address] 90272- 4220 Jan, IBS (irritable bowel syndrome) 564.1 [facility] [id number] [place] [address] 06988- 2682 Jan, [facility] [id number] [place] [address] 69844- 4674 Jan, [facility] [id number] [place] [address] 19328- 5159 Jan, Diabetes mellitus without mention of complication, type II or unspecified type, not stated as uncontrolled 250.00 ; Gastroparesis 536.3 and Hypoacusis 389.9 [facility] [id number] [place] [address] 98533- 0283 Jan, [facility] [id number] [place] [address] [id number] Jan, [facility] [id number] [address] 7075 Dec, [facility] [id number] [place] [address] 543102- 6282 Dec, [facility] [id number] [place] [address] 64482- 3673 Dec, [facility] [id number] [place] [address] 45308- 0474 Dec, Back pain 724.5 and Gastroparesis 536.3 [facility] [id number] [place] [address] 85209- 3401 Nov, [facility] [id number] [place] [address] [id number] Nov, Dental examination V72.2 [facility] [id number] [place] [address] 20573- 2085 Nov, [facility] [id number] [place] [address] 69060- 8798 Nov, [facility] [id number] [place] [address] 84564- 6422 Nov, Depressive disorder, not elsewhere classified 311 and No condition on [place] II V71.09 [facility] [id number] [place] [address] 18015- 9784 Nov, Diabetes 250.00 and Symptomatic menopausal or female climacteric states 627.2 [facility] [address], [place] [address] 5417 Oct, [facility] [id number] [place] [address] 30601- 4656 Oct, Lumbar strain 847.2 [facility] [id number], [place] [address] 9117 Oct, Gastroparesis 536.3 and Unspecified myalgia and myositis 729.1 [facility] [address] [id number] [place] [address]- 9511 14 Aug, 2014 [facility] [address] [facility] [id number] 3552 Aug, [facility] [address] [facility] [id number], [place] [address] 3611 Jul, [facility] [address] [id number], [place] [address]- 8697 Jul, [facility] [address] [id number] [place] [address]- 3714 Jul, [facility] [address] [facility] [id number], [place] [address] 5543 Jul, [facility] [address] [id number] [address] 3642 Jul, [facility] [address] [facility] [id number], [place] [address]- 3965 Jun, [facility] [address] [facility] [id number], [place] [address]- 7507 Jun, [facility] [address] [facility] [id number], [place] [address]- 9516 Jun, [facility] [address] [facility] [id number], [place] [address]- 1857 May, [facility] [address] [facility] [id number], [place] [address]- 5572 May, [facility] [address] [facility] [id number]- 2036 Mar, [facility] [address] [facility] [id number] 3775 Mar, [facility] [address] [id number], [place] [address]- 8484 Mar, [facility] [address] [id number] [place] [address]- 3977 Mar, [facility] [address] [id number] [place] [address]- 7265 Mar, [facility] [place] [facility] [address] [id number] [place] [address]- 8005 Mar, [facility] [address] [id number] [place] [address]- 1966 Feb, [facility] [place] [facility] [address] [id number] [place] [address]- 0373 Feb, [facility] [address] [id number] [place] [address]- 3067 Nov, [facility] [address] [id number] [place] [address]- 1692 Nov, [facility] [place] [facility] [address] [id number] [place] [address]- 8248 Nov, [facility] [address] [id number] [place] [address]- 4999 Oct, [facility] [place] [facility] [address] [id number] [place] [address]- 8495 September, [facility] [address] [id number] [place] [address]- 1959 Aug, [facility] [place] [facility] [address] [id number] [place] [address]- 0765 15 Aug, 2012 [facility] [place] [facility] [address] [id number] [place] [address]- 5324 Aug, [facility] [place] [facility] [address] [id number] [place] [address]- 7250 Aug, [facility] [place] [facility] [address] [id number] [place] [address]- 3781 Aug, [facility] [place] [facility] [address] [id number] [place] [address]- 1872 Aug, [facility] [address] [id number] [place] [address]- 7707 Aug, [facility] [place] [facility] [address] [id number] [place] [address]- 5597 Aug, [facility] [place] [facility] [address] [id number] [place] [address]- 0432 Jul, [facility] [place] [facility] [address] [id number] [place] [address]- 7908 Jul, [facility] [place] [facility] [address] [id number] [place] [address]- 9286 Jun, [facility] [place] [facility] [address] [id number] [place] [address]- 2142 Jun, [facility] [place] [facility] [address] [id number] [place] [address]- 4308 Jun, [facility] [place] [facility] [address] [id number] [place] [address]- 4604 Jun, [facility] [place] [facility] [address] [id number] [place] [address]- 3544 Jun, [facility] [place] [facility] [address] [id number] [place] [address]- 4277 Jun, [facility] [place] [facility] [address] [id number] [place] [address]- 6738 Jun, [facility] [place] [facility] [address] [id number] [place] [address]- 8970 May, [facility] [place] [facility] [address] [id number] [place] [address]- 9329 May, [facility] [place] [facility] [address] [id number] [place] [address]- 6560 May, [facility] [place] [facility] [address] [id number] [place] [address]- 2435 May, [facility] [place] [facility] [address] [facility] [id number] [place] [address]- 3793 Mar, [facility] [address] [facility] [id number] [place] [address]- 2541 Mar, [facility] [address] [facility] [id number] [place] [address]- 3043 Jan, IMMUNIZATIONS No Known Immunizations SOCIAL HISTORY Never Assessed REASON FOR VISIT medication PLAN OF CARE VITAL SIGNS MEDICATIONS Unknown [...] High blood sugar 2016 Hospitalization History DKA, vomitting-[facility] 03/05/17 Hospitalization History hospital stay at [facility] for stomach issues 2016
--- OUTSIDE RECORDS SUMMARY | 2018-05-04 15:39 | XMS REPORT ---
Author Author HORACE HIGGINS [facility] Address [address] [place] [address] Care Team Providers Care Senior Security Architect Name Role Phone HORACE HIGGINS Unavailable PROBLEMS Type Condition ICD9-CM Code [id number] Code Onset Dates Condition Status SNOMED Code Problem Asthma exacerbation J45.901 Active 437343442 Problem Diabetic polyneuropathy associated with type 2 diabetes mellitus E11.42 Active 89119100 Problem Reactive depression F32.9 Active 62792372 Problem Other chronic pain G89.29 Active 24005632 Problem Neuropathy G62.9 Active 483839703 Problem Irritable bowel syndrome with constipation K58.1 Active 059009784 Problem Back pain M54.9 Active 865908661 Problem Low TSH level R94.6 Active 465774946 Problem Migraine without aura and without status migrainosus, not intractable G43.009 Active 872842444 Problem PTSD (post-traumatic stress disorder) F43.10 Active 41614134 Problem Tobacco dependency F17.200 Active 91740868 Problem Annual physical exam Z00.00 Active 203071369 Problem Mixed hyperlipidemia E78.2 Active 275475700 Problem Type 2 diabetes mellitus with diabetic autonomic (poly)neuropathy E11.43 Active 90476946 Problem Diabetes E11.9 Active 94452436 Problem Gastroparesis K31.84 Active 595050607 Problem Anorexia R63.0 Active 24951882 Problem Weight loss R63.4 Active 287287146 Problem aperture mask etcher current use of insulin Z79.4 Active 288565661 Problem History of colon polyps Z86.010 Active 426450497 Problem Uncomplicated asthma, unspecified asthma severity J45.909 Active 610370172 Problem Primary insomnia F51.01 Active 7606224 ALLERGIES No Information ENCOUNTERS Encounter Location Date Diagnosis [facility] [address] [facility] [id number] [place] [address] Apr, [facility] [id number] [place] [address] 37830- 6693 Feb, [facility] [id number] [place] [address] 44249- 8638 Feb, [facility] [id number] [place] [address] 11516- 6554 Feb, PTSD (post-traumatic stress disorder) F43.10 [facility] [address] 15412- 7152 Feb, PTSD (post-traumatic stress disorder) F43.10 [facility] [id number] [place] [address] 15739- 4540 Feb, Pain in left shoulder M25.512 and Other chronic pain G89.29 [facility] [id number] [place] [address] 81588- 8274 Feb, LLQ pain R10.32 and Other dorsalgia M54.89 [facility] [id number] [place] [address] 38341- 5148 Feb, [facility] [id number] [place] [address] 81435- 7451 Feb, Right lower quadrant abdominal pain R10.31 ; Pain in left shoulder M25.512 ; Other chronic pain G89.29 and Encounter for immunization Z23 [facility] [id number] [place] [address] 93984- 0756 Feb, [facility] [id number] [place] [address] 74322- 9987 Jan, Dysfunction of left eustachian tube H69.82 [facility] [address] 11895- 6807 Jan, [facility] [id number] [place] [address] 20648- 7119 Jan, [facility] [id number] [place] [address] 67016- 9716 Jan, [facility] [id number] [place] [address] 44546- 9567 Jan, [facility] [id number] [place] [address] 24539- 3240 Jan, Left upper arm pain M79.622 [facility] [address] 72729- 4275 Jan, [facility] [address] 06231- 7652 Jan, PTSD (post-traumatic stress disorder) F43.10 and Tobacco dependency F17.200 [place] [address] 80360- 4088 Jan, Back pain M54.9 ; Type 2 diabetes mellitus with diabetic autonomic (poly)neuropathy E11.43 ; Neuropathy G62.9 ; Irritable bowel syndrome with constipation K58.1 ; Sprain of other part of left shoulder region, initial encounter S43.492A and Dysfunction of left eustachian tube H69.82 [facility] [id number] [place] [address] 42238- 0947 Jan, [place] [id number] [place] [address] 62576- 5179 Jan, Neuropathy G62.9 ; LLQ pain R10.32 and Other dorsalgia M54.89 [facility] [id number] [place] [address] 08278- 9751 Jan, [facility] [id number] [place] [address] 91632- 9815 Jan, [facility] [address] 04586- 2013 Dec, Right upper quadrant abdominal pain R10.11 [facility] [id number] [place] [address] 79501- 2877 Dec, PTSD (post-traumatic stress disorder) F43.10 [place] [id number] [place] [address] 59797- 3241 Dec, LLQ pain R10.32 [place] [address] 37350- 5834 Dec, Other dorsalgia M54.89 [place] [address] 18399- 7062 Dec, Neuropathy G62.9 [place] [address] 63202- 6800 Dec, [place] [address] 97155- 9104 Nov, Irritable bowel syndrome with constipation K58.1 ; Uncomplicated asthma, unspecified asthma severity J45.909 and Type 2 diabetes mellitus with diabetic autonomic (poly)neuropathy E11.43 [facility] [address] [id number] Nov, Dental examination Z01.20 [place] [address] 85384- 3111 Nov, Other dorsalgia M54.89 [place] [address] 02634- 3438 Nov, LLQ pain R10.32 ; Low TSH level R94.6 and Gastroparesis K31.84 [place] [address] 46529- 9787 Nov, Anorexia R63.0 [place] [address] 88326- 8070 Nov, Asthma exacerbation J45.901 [place] [address] 51929- 8795 Oct, PTSD (post-traumatic stress disorder) F43.10 [place] [address] 73783- 7713 Oct, [place] [id number] [place] [address] 32911- 3154 19 Oct, 2017 PTSD (post-traumatic stress disorder) F43.10 and Tobacco dependency F17.200 [place] [id number] [place] [address] 26824- 3866 18 Oct, 2017 [place] [address] 29896- 5378 Oct, Other dorsalgia M54.89 [place] [address] 00911- 7516 Oct, Anorexia R63.0 [place] [address] 822573- 1244 September, PTSD (post-traumatic stress disorder) F43.10 [place] [address] 18153- 3205 15 Sep, 2017 Low TSH level R94.6 [place] [address] 41618- 5432 September, Other dorsalgia M54.89 [place] [address] 83484- 2462 September, Annual physical exam Z00.00 and Migraine without aura and without status migrainosus, not intractable G43.009 [place] [id number] [place] [address] 17392- 6212 September, Abnormal TSH R94.6 and Dysfunction of left eustachian tube H69.82 [place] [id number] [place] [address] 25412- 0516 Aug, [facility] [address] 29357- 5506 Aug, Anorexia R63.0 [facility] [id number] [place] [address] [id number] Aug, Dental examination Z01.20 and Xerostomia K11.7 [place] [id number] [place] [address] 88644- 8363 Aug, Neuropathy G62.9 [facility] [address] 01078- 6936 Aug, [facility] [id number] [place] [address] 84302- 2691 Aug, Other dorsalgia M54.89 [facility] [address] 07695- 9397 Aug, Type 2 diabetes mellitus with diabetic autonomic (poly) neuropathy E11.43 ; Diabetic polyneuropathy associated with type 2 diabetes mellitus E11.42 ; Bronchitis J40 ; Gastroparesis K31.84 and Reactive depression F32.9 [facility] [id number] [place] [address] 33213- 9643 Aug, PTSD (post-traumatic stress disorder) F43.10 [facility] [id number] [place] [address] 55544- 8952 Aug, Other dorsalgia M54.89 and Anorexia R63.0 [facility] [address] 05302- 8245 Jul, [facility] [id number] [place] [address] 64415- 9594 Jul, Other dorsalgia M54.89 [facility] [id number] [place] [address] 84651- 0841 Jul, [facility] [id number] [place] [address] 42801- 4263 Jul, [facility] [address] 64307- 1868 Jul, PTSD (post-traumatic stress disorder) F43.10 [facility] [id number] [place] [address] 79650- 3093 Jul, [facility] [id number] [place], [place] [address]- 8798 Jul, [facility] [id number] [place] [address] 58900- 7606 Jul, [facility] [id number] [place] [address] 62042 2546 Jul, Anorexia R63.0 [facility] [id number] [place] [address] 77983- 5376 Jun, [facility] [id number] [place] [address] 08956- 9726 Jun, Vaginal discharge N89.8 ; Visit for gynecologic examination Z01.419 and Pelvic pressure in female R10.2 [facility] [id number] [place] [address] 50743- 0746 Jun, [facility] [id number] [place] [address] 73975- 9186 Jun, Other dorsalgia M54.89 [facility] [id number] [place] [address] 90394- 4040 Jun, [facility] [id number] [place] [address] 12312- 0706 Jun, [facility] [id number] [place] [address] 63682- 9424 Jun, [facility] [id number] [place] [address] 43958 2546 May, Back pain M54.9 [facility] [id number] [place] [address] 61125 2546 May, Anorexia R63.0 [facility] [id number] [place] [address] 12402 2546 May, Other dorsalgia M54.89 [facility] [id number] [place] [address] 73342 2546 May, [facility] [address] 61231- 8931 May, Bronchitis J40 [place] [address] 70864- 6049 May, Type 2 diabetes mellitus with diabetic autonomic (poly) neuropathy E11.43 ; aperture mask etcher current use of insulin Z79.4 ; Back pain M54.9 and Neuropathy G62.9 [place] [address] 47359- 9171 May, Left breast mass N63.20 [place] [address] 40054- 4813 May, [place] [address] 63218- 5150 Apr, Other dorsalgia M54.89 [place] [address] 96049- 1058 Apr, Anorexia R63.0 [place] [address] 72575- 4225 Apr, Anorexia R63.0 [place] [address] 16819- 7289 Apr, Mass of left breast N63.20 [place] [address] 10814- 0268 Apr, [place] [address] 01428- 3276 Apr, [place] [address] 87721- 1711 Apr, Diarrhea of presumed infectious origin A09 [place] [address] 47682- 6551 Apr, Encounter for immunization Z23 [place] [address] 43878- 2885 05 Apr, 2017 [place] [id number] [place] [address] 78187- 0322 Mar, Other dorsalgia M54.89 [facility] [address] 57537- 3317 Mar, [facility] [id number] [place] [address] 99121- 5896 Mar, [facility] [address] 73542- 7893 Mar, Anorexia R63.0 [facility] [address] 98502- 2393 Mar, [facility] [address] 14154- 6320 Mar, Other dorsalgia M54.89 [facility] [address] 51559- 9257 Mar, [facility] [address] 36116- 3770 Mar, Encounter for immunization Z23 [facility] [address] 80261- 5973 Feb, Anorexia R63.0 [facility] [id number] [place] [address] 09613- 8443 Feb, Diabetes E11.9 [facility] [address] 44864- 1848 Feb, Back pain M54.9 and Diabetes E11.9 [facility] [id number] [place] [address] 94097- 5775 Feb, Diabetes E11.9 [facility] [address] 50632- 7222 Feb, Neuropathy G62.9 [facility] [id number] [place] [address] 41631- 7395 Feb, Encounter for immunization Z23 ; Epigastric pain R10.13 ; Weight loss, abnormal R63.4 and Neuropathy G62.9 [facility] [id number] [place] [address] [id number] Feb, [facility] [id number] [place] [address] 27937- 9421 Feb, [facility] [id number] [place] [address] 36081- 3734 Feb, Intractable vomiting with nausea, unspecified vomiting type R11.2 [facility] [id number] [place] [address] 78417 -6670 Feb, Chronic nausea R11.0 [facility] [id number] [place] [address] 31282- 5598 Feb, Other dorsalgia M54.89 [facility] [id number] [place] [address] 00047- 4962 Jan, [facility] [id number] [place] [address] 53741- 3071 Jan, [facility] [id number] [place] [address] 64552- 1652 Jan, [facility] [id number] [place] [address] 02730- 0841 Jan, [facility] [id number] [place] [address] 14294- 6585 Jan, Asthma exacerbation J45.901 ; Bronchitis J40 and Neuropathy G62.9 [facility] [id number] [place] [address] 66991- 6597 Jan, Anorexia R63.0 [facility] [id number] [place] [address] 20917- 8335 Jan, Other dorsalgia M54.89 [facility] [id number] [place] [address] 70643- 9666 Dec, [facility] [id number] [address]- 6369 16 Dec, 2016 [facility] [id number] [place] [address] 39391- 3885 Dec, Anorexia R63.0 [facility] [id number] [place] [address] 63647- 7290 Dec, Primary insomnia F51.01 [facility] [id number] [place] [address] 90126- 6249 Dec, Other dorsalgia M54.89 [facility] [id number] [place] [address] 84537- 9640 Dec, [facility] [id number] [place] [address] 76534- 7609 Nov, [facility] [id number] [place] [address] 83737- 4574 Nov, [facility] [id number] [place] [address] 73316- 2084 Nov, [facility] [id number] [place] [address] 97944- 9870 Nov, History of colon polyps Z86.010 [facility] [id number] [place] [address]- 5971 Nov, Weight loss R63.4 ; Nausea and vomiting, intractability of vomiting not specified, unspecified vomiting type R11.2 and Abnormal LFTs R79.89 [facility] [address] [place] [address]- 8652 Nov, [facility] [id number] [place] [address] 48240- 8906 Nov, Neuropathy G62.9 and Pain in right knee M25.561 [facility] [address] [place] [address]- 2400 Nov, Back pain M54.9 [facility] [id number] [address]- 2006 Nov, [facility] [id number] [place] [address] 73827- 1630 Nov, Bronchitis J40 [facility] [id number] [place] [address] 46931- 9597 Nov, Weight loss R63.4 [facility] [id number] [place] [address] 15517- 2120 Oct, Back pain M54.9 [facility] [id number] [place] [address] 47152- 2377 Oct, [facility] [id number] [place] [address] 96494- 6129 Oct, Back pain M54.9 [facility] [id number] [place] [address] 47650- 3053 Oct, Type 2 diabetes mellitus without complications E11.9 and Bronchitis J40 [facility] [id number] [place] [address] 45772- 2470 Oct, [facility] [id number] [place] [address] 85630- 0224 Oct, [facility] [id number] [place] [address] 86535- 0847 September, Gastroparesis K31.84 ; Type 2 diabetes mellitus with diabetic autonomic (poly)neuropathy E11.43 and Neuropathy G62.9 [facility] [id number] [place] [address]- 6673 September, Other dorsalgia M54.89 [facility] [id number] [place] [address] 00648- 9211 September, [facility] [address] [place] [address]- 9064 September, [facility] [id number] [place] [address] 25770- 6841 Aug, Gastroparesis K31.84 and Radicular leg pain M54.10 [facility] [address] 58054- 8830 Aug, Anorexia R63.0 [facility] [address] 92581- 6922 Aug, Bronchitis J40 [facility] [address] 22662- 3186 Aug, Back pain M54.9 [place] [address] 20678- 5378 Aug, Routine gynecological examination Z01.419 ; Routine screening for STI (sexually transmitted infection) Z11.3 and Yeast infection of the vagina B37.3 [place] [address] [address] Jul, Other dorsalgia M54.89 [place] [address] [address] Jul, Diabetes E11.9 and Gastroparesis K31.84 [place] [address] [address] Jun, [facility] [address] [address] Jun, Back pain M54.9 [facility] [address] [address] Jun, Neuropathy G62.9 [facility] [address] [id number] Jun, Encounter for dental examination Z01.20 [facility] [address] [address] Jun, Gastroparesis 536.3 and Anorexia R63.0 [facility] [address] [address] May, Other dorsalgia M54.89 [facility] [address] [place] [id number] [place] [address] May, Periumbilical abdominal pain R10.33 ; Weight loss R63.4 and Gastroparesis K31.84 [facility] [address] [address] May, Back pain M54.9 [facility] [address] [address] Apr, Anorexia R63.0 [facility] [address] [address] Apr, Anorexia R63.0 [facility] [address] [address] 16 Apr, 2016 Back pain M54.9 [facility] [address] [address] 15 Apr, 2016 Back pain M54.9 [facility] [address] [address] Apr, [facility] [address] [address] Apr, Bronchitis J40 and Neuropathy G62.9 [facility] [address] [address] Apr, Neuropathy G62.9 [facility] [address] [address] 05 Apr, 2016 [facility] [address] [address] Apr, Back pain M54.9 [facility] [address] [address] 30 Mar, 2016 Type 2 diabetes mellitus with diabetic autonomic (poly) neuropathy E11.43 [facility] [address] [place] [address] Mar, Type 2 diabetes mellitus without complications E11.9 [facility] [address] [address] Mar, Neuropathy G62.9 [facility] [address] [place] [id number] [place] [address] Mar, [facility] [address] [address] Mar, Breast cancer screening Z12.39 [facility] [address] [address] Mar, Other dorsalgia M54.89 [facility] [address] [address] Feb, [facility] [address] [address] Jan, Neuropathy G62.9 ; Type 2 diabetes mellitus with diabetic autonomic (poly)neuropathy E11.43 ; Uncomplicated asthma, unspecified asthma severity J45.909 and Encounter for immunization Z23 [facility] [id number] [place] [address] 89120- 2573 Jan, [facility] [id number] [place] [address] 61555- 2286 Jan, [facility] [id number] [place] [address] 35375- 7999 Dec, [facility] [id number] [place] [address] 79341- 9336 Dec, [facility] [id number] [place] [address] 92818- 3818 Nov, [facility] [id number] [place] [address] 56061- 8566 Nov, Back pain M54.9 [facility] [address] 98971- 0380 Nov, Neuropathy G62.9 ; Mixed hyperlipidemia E78.2 ; Type 2 diabetes mellitus with diabetic autonomic (poly)neuropathy E11.43 and jail current use of insulin Z79.4 [facility] [id number] [place] [address] 42191- 5416 Oct, [facility] [id number] [place] [address] 49581- 4770 Oct, Other dorsalgia M54.89 [facility] [id number] [place] [address] 53766- 4030 September, Primary insomnia F51.01 [facility] [address] 06796- 9470 September, [facility] [id number] [place] [address] 48467- 6192 Aug, Other dorsalgia M54.89 [facility] [id number] [place] [address] 96567- 3779 Jul, [facility] [id number] [place] [address] 52558- 8237 Jul, Other dorsalgia M54.89 [facility] [id number] [place] [address] 95170- 5736 Jul, Diabetes E11.9 ; Back pain M54.9 ; Neuropathy G62.9 and Gastroparesis K31.84 [facility] [id number] [place] [address] 39346- 7127 Jun, [facility] [id number] [place] [address] 99643- 2842 Jun, Other dorsalgia M54.89 [facility] [id number] [place] [address] 21565- 8151 May, [facility] [id number] [place] [address] 68110- 6828 May, Radicular leg pain M54.10 and Other dorsalgia M54.89 [facility] [id number] [place] [address] 54127- 0049 Apr, [facility] [id number] [place] [address] 63792- 7194 Mar, [facility] [id number] [place] [address] 72768- 4575 Mar, [facility] [id number] [place] [address] 21349- 4087 Mar, Radicular leg pain M54.10 [facility] [id number] [place] [address] 99870- 6938 Feb, [facility] [id number] [place] [address] 46368- 5081 Feb, [facility] [id number] [place] [address] 58288- 0738 Feb, [facility] [id number] [place] [address] 48031- 3760 Jan, [facility] [id number] [place] [address] 89383- 6338 Jan, IBS (irritable bowel syndrome) 564.1 [facility] [id number] [place] [address] 77143- 0990 Jan, [facility] [id number] [place] [address] 43174- 2021 Jan, [facility] [id number] [place] [address] 00790- 2932 Jan, Diabetes mellitus without mention of complication, type II or unspecified type, not stated as uncontrolled 250.00 ; Gastroparesis 536.3 and Hypoacusis 389.9 [facility] [id number] [place] [address] 21541- 7631 Jan, [facility] [id number] [place] [address] 49548- 8993 Jan, [facility] [address] [place] [address]- 4214 Dec, [facility] [id number] 1725 Dec, [facility] [address] [address]- 9205 Dec, [facility] [id number] [place] [address] 86237- 7510 Dec, Back pain 724.5 and Gastroparesis 536.3 [facility] [id number] [place] [address] 71499- 0603 Nov, [facility] [id number] [id number] Nov, Dental examination V72.2 [facility] [id number] [place] [address] 75302- 4336 Nov, [facility] [address] [place] [address]- 8913 Nov, [facility] [id number] [place] [address] 16586- 9209 Nov, Depressive disorder, not elsewhere classified 311 and No condition on [place] II V71.09 [facility] [address] [place] [address]- 0105 Nov, Diabetes 250.00 and Symptomatic menopausal or female climacteric states 627.2 [facility] [id number] [address]- 0286 Oct, [facility] [address] [place] [address]- 3796 Oct, Lumbar strain 847.2 [facility] [id number] [address]- 8466 Oct, Gastroparesis 536.3 and Unspecified myalgia and myositis 729.1 [facility] [address] [id number] [place] [address]- 6126 14 Aug, 2014 [facility] [address] [id number] [place] [address]- 0862 Aug, [facility] [address] [facility] [id number] [place] [address]- 7714 Jul, [facility] [address] [id number] [place] [address]- 8833 Jul, [facility] [address] [id number] [place] [address]- 6919 Jul, [facility] [address] [facility] [id number] [place] [address]- 7662 Jul, [facility] [address] [facility] [id number] [place] [address]- 7023 Jul, [facility] [address] [id number], [place] [address]- 7401 Jun, [facility] [address] [facility] [id number] [place] [address]- 8415 Jun, [facility] [address] [facility] [id number] [place] [address]- 4363 Jun, [facility] [address] [facility] [id number], [place] [address]- 6379 May, [facility] [address] [facility] [id number], [place] [address]- 7944 May, [facility] [place] [facility] [address] [id number], [place] [address]- 7753 Mar, [facility] [address] [facility] [id number] 0533 Mar, [facility] [address] [facility] [id number] [place] [address]- 0315 Mar, [facility] [address] [id number] [place] [address]- 9169 Mar, [facility] [address] [id number] [place] [address]- 8621 Mar, [facility] [address] [id number] [place] [address]- 4281 Mar, [facility] [address] [id number] [place] [address]- 3161 Feb, [facility] [address] [id number] [place] [address]- 8064 Feb, [facility] [address] [id number] [place] [address]- 4887 Nov, [facility] [address] [id number] [place] [address]- 3699 Nov, [facility] [address] [id number] [place] [address]- 5352 Nov, [facility] [address] [id number] [place] [address]- 7541 Oct, [facility] [address] [id number] [place] [address]- 2182 September, [facility] [address] [id number] [place] [address]- 8502 Aug, [facility] [address] [id number] [place] [address]- 3173 15 Aug, 2012 [facility] [address] [id number] [place] [address]- 8253 Aug, [facility] [place] [facility] [address] [id number] [place] [address]- 7390 Aug, [facility] [place] [facility] [address] [id number] [place] [address]- 2972 10 Aug, 2012 [facility] [address] [id number] [place] [address]- 0937 Aug, [facility] [address] [id number] [place] [address]- 6369 Aug, [facility] [address] [id number] [place] [address]- 7035 Aug, [facility] [address] [id number] [place] [address]- 2946 Jul, [facility] [place] [facility] [address] [id number] [place] [address]- 1162 Jul, [facility] [address] [id number] [place] [address]- 5584 Jun, [facility] [place] [facility] [address] [id number] [place] [address]- 8999 Jun, [facility] [address] [id number] [place] [address]- 4112 Jun, [facility] [address] [id number] [place] [address]- 1997 Jun, [facility] [address] [id number] [place] [address]- 2074 Jun, [facility] [address] [id number] [place] [address]- 4523 Jun, [facility] [address] [id number] [place] [address]- 4552 Jun, [facility] [place] [facility] [address] [id number] [place] [address]- 6235 May, [facility] [place] [facility] [address] [id number] [place] [address]- 1282 May, [facility] [place] [facility] [address] [id number] [place] [address]- 7600 May, [facility] [place] [facility] [address] [id number] [place] [address]- 5818 May, [facility] [place] [facility] [address] [facility] [id number] [place] [address]- 1754 Mar, [facility] [address] [facility] [id number] [place] [address]- 2976 Mar, [facility] [address] [facility] [id number] [place] [address]- 1816 Jan, IMMUNIZATIONS No Known Immunizations SOCIAL HISTORY Never Assessed REASON FOR VISIT Refill request PLAN OF CARE VITAL SIGNS MEDICATIONS Medication Instructions Dosage Frequency Start Date End Date Duration Status SudoGest 60 mg Orally every 6 hrs 1 tablet as needed 6h September, 7 days Active RESULTS No Results PROCEDURES No [...] vomitting-[facility] 03/05/17 Hospitalization History hospital stay at [facility] for stomach issues 2016
--- OUTSIDE RECORDS SUMMARY | 2018-05-04 15:39 | XMS REPORT ---
Author Author RACH LENZ [facility] Address [address] [place] [address] Care Team Providers Care Electric Container Tester Name Role Phone RACH LENZ Unavailable PROBLEMS ALLERGIES No Information ENCOUNTERS IMMUNIZATIONS No Known Immunizations SOCIAL HISTORY No smoking Hx information available REASON FOR VISIT PLAN OF CARE VITAL SIGNS MEDICATIONS RESULTS No Results PROCEDURES INSTRUCTIONS MEDICATIONS ADMINISTERED No Known Medications MEDICAL (GENERAL) HISTORY
--- OUTSIDE RECORDS SUMMARY | 2018-05-04 15:40 | XMS REPORT ---
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
--- OUTSIDE RECORDS SUMMARY | 2018-05-04 15:41 | XMS REPORT ---
Author Author DELFIN RACH Organization [facility] Address [address] [place] [address] Care Team Providers Care Jointer Operator Name Role Phone DELFIN RACH Unavailable PROBLEMS Type Condition ICD9-CM Code [id number] Code Onset Dates Condition Status SNOMED Code Problem Asthma exacerbation J45.901 Active 675594340 Problem Diabetic polyneuropathy associated with type 2 diabetes mellitus E11.42 Active 63510128 Problem Reactive depression F32.9 Active 04716216 Problem Other chronic pain G89.29 Active 67222108 Problem Neuropathy G62.9 Active 640861017 Problem Irritable bowel syndrome with constipation K58.1 Active 657035679 Problem Back pain M54.9 Active 523197020 Problem Low TSH level R94.6 Active 608767891 Problem Migraine without aura and without status migrainosus, not intractable G43.009 Active 265351372 Problem PTSD (post-traumatic stress disorder) F43.10 Active 30899096 Problem Tobacco dependency F17.200 Active 89095099 Problem Annual physical exam Z00.00 Active 627712331 Problem Mixed hyperlipidemia E78.2 Active 003603443 Problem Type 2 diabetes mellitus with diabetic autonomic (poly)neuropathy E11.43 Active 03250463 Problem Diabetes E11.9 Active 70017822 Problem Gastroparesis K31.84 Active 706670554 Problem Anorexia R63.0 Active 62032891 Problem Weight loss R63.4 Active 175037803 Problem 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 [id number] [address] Apr, [facility] [id number] [place] [address] 37472- 5920 Feb, [facility] [id number] [place] [address] 94005- 5976 Feb, [facility] [id number] [place] [address] 90674- 0527 Feb, PTSD (post-traumatic stress disorder) F43.10 [facility] [id number] [place] [address] 14094- 6616 Feb, PTSD (post-traumatic stress disorder) F43.10 [facility] [id number] [place] [address] 48999- 9798 Feb, Pain in left shoulder M25.512 and Other chronic pain G89.29 [place] [address] 13844- 4443 Feb, LLQ pain R10.32 and Other dorsalgia M54.89 [place] [id number] [place] [address] 78075- 3060 Feb, [facility] [address] 35636- 9754 Feb, Right lower quadrant abdominal pain R10.31 ; Pain in left shoulder M25.512 ; Other chronic pain G89.29 and Encounter for immunization Z23 [place] [id number] [place] [address] 50128- 9144 Feb, [facility] [id number] [place] [address] 72872- 8150 Jan, Dysfunction of left eustachian tube H69.82 [facility] [id number] [place] [address] 35210- 1182 Jan, [facility] [id number] [place] [address] 70937- 5896 Jan, [facility] [id number] [place] [address] 56933- 5619 Jan, [facility] [id number] [place] [address] 30853- 2410 Jan, [facility] [id number] [place] [address] 34578- 3618 Jan, Left upper arm pain M79.622 [facility] [address] 71268- 9777 Jan, [facility] [address] 94737- 4424 Jan, PTSD (post-traumatic stress disorder) F43.10 and Tobacco dependency F17.200 [facility] [id number] [place] [address] 17706- 5082 Jan, Back pain M54.9 ; Type 2 diabetes mellitus with diabetic autonomic (poly)neuropathy E11.43 ; Neuropathy G62.9 ; Irritable bowel syndrome with constipation K58.1 ; Sprain of other part of left shoulder region, initial encounter S43.492A and Dysfunction of left eustachian tube H69.82 [facility] [id number] [place] [address] 13522- 2522 Jan, [facility] [address] 98662- 8402 Jan, Neuropathy G62.9 ; LLQ pain R10.32 and Other dorsalgia M54.89 [facility] [id number] [place] [address] 30839- 9089 Jan, [facility] [id number] [place] [address] 92117- 3558 Jan, [facility] [address] 95483- 1524 Dec, Right upper quadrant abdominal pain R10.11 [facility] [id number] [place] [address] 88040- 4146 Dec, PTSD (post-traumatic stress disorder) F43.10 [place] [id number] [place] [address] 21524- 8678 Dec, LLQ pain R10.32 [place] [address] 98886- 4783 Dec, Other dorsalgia M54.89 [place] [address] 40071- 4410 Dec, Neuropathy G62.9 [facility] [address] 39592- 6265 Dec, [place] [address] 94752- 5020 Nov, Irritable bowel syndrome with constipation K58.1 ; Uncomplicated asthma, unspecified asthma severity J45.909 and Type 2 diabetes mellitus with diabetic autonomic (poly)neuropathy E11.43 [facility] [address] [id number] Nov, Dental examination Z01.20 [place] [address] 07157- 9020 Nov, Other dorsalgia M54.89 [place] [address] 44556- 7538 Nov, LLQ pain R10.32 ; Low TSH level R94.6 and Gastroparesis K31.84 [place] [address] 36592- 4693 Nov, Anorexia R63.0 [place] [address] 82388- 2972 Nov, Asthma exacerbation J45.901 [place] [address] 16037- 4652 Oct, PTSD (post-traumatic stress disorder) F43.10 [place] [id number] [place] [address] 41305- 1385 Oct, [place] [id number] [place] [address] 50532- 6270 19 Oct, 2017 PTSD (post-traumatic stress disorder) F43.10 and Tobacco dependency F17.200 [place] [address] 21399- 2864 18 Oct, 2017 [place] [address] 89797- 1110 Oct, Other dorsalgia M54.89 [place] [address] 20328- 8832 Oct, Anorexia R63.0 [place] [address] 39909- 1742 September, PTSD (post-traumatic stress disorder) F43.10 [place] [address] 17002- 9544 September, Low TSH level R94.6 [place] [address] 86432- 0443 September, Other dorsalgia M54.89 [place] [address] [place] [id number]- 3656 September, Annual physical exam Z00.00 and Migraine without aura and without status migrainosus, not intractable G43.009 [place] [id number] [place] [address] 62721- 3209 September, Abnormal TSH R94.6 and Dysfunction of left eustachian tube H69.82 [place] [id number] [place] [address] 01834- 2393 Aug, [place] [address] 51536- 0006 Aug, Anorexia R63.0 [facility] [address] [id number] Aug, Dental examination Z01.20 and Xerostomia K11.7 [place] [id number] [place] [address] 30674- 2976 Aug, Neuropathy G62.9 [facility] [address] 23969 2546 Aug, [facility] [id number] [place] [address] 16008- 5807 Aug, Other dorsalgia M54.89 [facility] [id number] [place] [address] 31608 2542 Aug, Type 2 diabetes mellitus with diabetic autonomic (poly) neuropathy E11.43 ; Diabetic polyneuropathy associated with type 2 diabetes mellitus E11.42 ; Bronchitis J40 ; Gastroparesis K31.84 and Reactive depression F32.9 [facility] [id number] [place] [address] 12189- 6494 Aug, PTSD (post-traumatic stress disorder) F43.10 [facility] [id number] [place] [address] 44037- 2022 Aug, Other dorsalgia M54.89 and Anorexia R63.0 [facility] [id number] [place] [address] 44551- 2715 Jul, [facility] [id number] [place] [address] 59289- 2049 Jul, Other dorsalgia M54.89 [facility] [id number] [place] [address] 41890 2546 Jul, [facility] [id number] [place] [address] 97232 254 Jul, [facility] [address] 15393- 9815 Jul, PTSD (post-traumatic stress disorder) F43.10 [facility] [id number] [place] [address] 58080 2542 Jul, [facility] [id number] [place] [address] 06194- 5996 Jul, [facility] [address] 58104- 5336 Jul, [facility] [address] 56864- 3016 Jul, Anorexia R63.0 [facility] [address] 91483- 1426 Jun, [facility] [address] 57745- 7860 Jun, Vaginal discharge N89.8 ; Visit for gynecologic examination Z01.419 and Pelvic pressure in female R10.2 [facility] [address] 41958- 5476 Jun, [facility] [address] 25231- 2156 Jun, Other dorsalgia M54.89 [facility] [id number] [place] [address] 77718- 0632 Jun, [facility] [address] 59713- 2462 Jun, [facility] [id number] [place] [address] 71206- 7272 Jun, [facility] [id number] [place] [address] 00155- 7782 May, Back pain M54.9 [facility] [id number] [place] [address] 99451- 4756 May, Anorexia R63.0 [facility] [address] 48346- 5346 May, Other dorsalgia M54.89 [facility] [address] 11417- 1756 May, [facility] [address] 19406- 8623 May, Bronchitis J40 [place] [address] 53771- 7650 May, Type 2 diabetes mellitus with diabetic autonomic (poly) neuropathy E11.43 ; [facility] current use of insulin Z79.4 ; Back pain M54.9 and Neuropathy G62.9 [place] [address] 40482- 8026 May, Left breast mass N63.20 [place] [address] 11657- 8329 May, [place] [address] 50062- 4304 Apr, Other dorsalgia M54.89 [place] [address] 58517- 3676 Apr, Anorexia R63.0 [place] [address] 94518- 9720 Apr, Anorexia R63.0 [place] [address] 54012- 2263 Apr, Mass of left breast N63.20 [place] [address] 72073- 6571 Apr, [place] [address] 33619- 3591 Apr, [place] [address] 66999- 2554 Apr, Diarrhea of presumed infectious origin A09 [place] [address] 90885- 1815 Apr, Encounter for immunization Z23 [place] [address] 43254- 7215 05 Apr, 2017 [place] [id number] [place] [address] 75331- 4087 Mar, Other dorsalgia M54.89 [facility] [id number] [place] [address] 69143- 2383 Mar, [facility] [id number] [place] [address] 30312- 1767 Mar, [facility] [address] 07639- 4751 Mar, Anorexia R63.0 [facility] [address] 18326- 5351 Mar, [facility] [id number] [place] [address] 67232- 6973 Mar, Other dorsalgia M54.89 [facility] [address] 13636- 6328 Mar, [facility] [id number] [place] [address] 11751- 4246 Mar, Encounter for immunization Z23 [facility] [id number] [place] [address] 98370- 7089 Feb, Anorexia R63.0 [facility] [id number] [place] [address] 88592- 8849 Feb, Diabetes E11.9 [facility] [id number] [place] [address] 19947- 6383 Feb, Back pain M54.9 and Diabetes E11.9 [facility] [id number] [place] [address] 95117- 7062 Feb, Diabetes E11.9 [facility] [id number] [place] [address] 06568- 9784 Feb, Neuropathy G62.9 [facility] [id number] [place] [address] 07023- 3235 Feb, Encounter for immunization Z23 ; Epigastric pain R10.13 ; Weight loss, abnormal R63.4 and Neuropathy G62.9 [facility] [id number] [place] [address] [id number] Feb, [facility] [id number] [place] [address] 12140- 0094 Feb, [facility] [address] 52275- 1600 Feb, Intractable vomiting with nausea, unspecified vomiting type R11.2 [facility] [id number] [place] [address] 64735 -9429 Feb, Chronic nausea R11.0 [facility] [address] 29047- 1676 Feb, Other dorsalgia M54.89 [facility] [address] 42113- 7901 Jan, [facility] [id number] [place] [address] 84330- 3484 Jan, [facility] [address] 20471- 6351 Jan, [facility] [id number] [place] [address] 70463- 5948 Jan, [facility] [id number] [place] [address] 68313- 4567 Jan, Asthma exacerbation J45.901 ; Bronchitis J40 and Neuropathy G62.9 [facility] [id number] [place] [address] 24103- 4432 Jan, Anorexia R63.0 [facility] [address] 52892- 1445 Jan, Other dorsalgia M54.89 [facility] [address] 65858- 3106 Dec, [facility] [address] [address]- 7375 16 Dec, 2016 [facility] [id number] [place] [address] 72278- 1660 Dec, Anorexia R63.0 [facility] [id number] [place] [address] 20152- 6924 Dec, Primary insomnia F51.01 [facility] [id number] [place] [address] 85032- 3811 Dec, Other dorsalgia M54.89 [facility] [id number] [place] [address] 83541- 0937 Dec, [facility] [id number] [place] [address] 10552- 7804 Nov, [facility] [id number] [place] [address] 22157- 8141 Nov, [facility] [id number] [place] [address] 36157- 2679 Nov, [facility] [id number] [place] [address] 61962- 8904 Nov, History of colon polyps Z86.010 [facility] [id number] [place] [address] 55355- 5316 Nov, Weight loss R63.4 ; Nausea and vomiting, intractability of vomiting not specified, unspecified vomiting type R11.2 and Abnormal LFTs R79.89 [facility] [address] [place] [address] 17403- 8300 Nov, [facility] [id number] [place] [address] 84042- 7555 Nov, Neuropathy G62.9 and Pain in right knee M25.561 [facility] [id number] [place] [address] 95508- 4436 Nov, Back pain M54.9 [facility] [address] [address]- 6469 Nov, [facility] [id number] [place] [address] 08387- 3109 Nov, Bronchitis J40 [facility] [id number] [place] [address] 65876- 0752 Nov, Weight loss R63.4 [facility] [id number] [place] [address] 38484- 7251 Oct, Back pain M54.9 [facility] [id number] [place] [address] 28495- 8283 Oct, [facility] [id number] [place] [address] 22347- 6634 Oct, Back pain M54.9 [facility] [id number] [place] [address] 14183- 1412 Oct, Type 2 diabetes mellitus without complications E11.9 and Bronchitis J40 [facility] [id number] [place] [address] 19407- 6894 Oct, [facility] [id number] [place] [address] 05632- 2209 Oct, [facility] [id number] [place] [address] 51542- 6797 September, Gastroparesis K31.84 ; Type 2 diabetes mellitus with diabetic autonomic (poly)neuropathy E11.43 and Neuropathy G62.9 [facility] [address] [address]- 1513 September, Other dorsalgia M54.89 [facility] [id number] [place] [address] 23015- 7188 September, [facility] [address] [place] [address] 56678- 2407 September, [facility] [id number] [place] [address] 47488- 7833 Aug, Gastroparesis K31.84 and Radicular leg pain M54.10 [facility] [address] 09891- 8915 Aug, Anorexia R63.0 [facility] [id number] [place] [address] 56904- 5245 Aug, Bronchitis J40 [facility] [address] 56485- 9837 Aug, Back pain M54.9 [place] [address] 62309- 1326 Aug, Routine gynecological examination Z01.419 ; Routine screening for STI (sexually transmitted infection) Z11.3 and Yeast infection of the vagina B37.3 [place] [address] 40314- 6269 Jul, Other dorsalgia M54.89 [facility] [address] 32351- 2887 Jul, Diabetes E11.9 and Gastroparesis K31.84 [place] [address] 82541- 5092 Jun, [facility] [address] 51992- 2481 Jun, Back pain M54.9 [facility] [address] 57340- 0512 Jun, Neuropathy G62.9 [facility] [id number] [place] [address] [id number] 02 Jun, 2016 Encounter for dental examination Z01.20 [facility] [address] 68187- 0192 01 Jun, 2016 Gastroparesis 536.3 and Anorexia R63.0 [facility] [address] 54484- 0693 May, Other dorsalgia M54.89 [facility] [address] 13098 2546 10 May, 2016 Periumbilical abdominal pain R10.33 ; Weight loss R63.4 and Gastroparesis K31.84 [facility] [address] 13953 2546 May, Back pain M54.9 [facility] [address] 27670 2546 Apr, Anorexia R63.0 [facility] [address] 84085 2546 Apr, Anorexia R63.0 [facility] [address] 82109 2546 16 Apr, 2016 Back pain M54.9 [facility] [address] 72655 2546 Apr, Back pain M54.9 [facility] [address] 77322 2546 Apr, [facility] [address] 98472 2546 Apr, Bronchitis J40 and Neuropathy G62.9 [facility] [address] 05595 2546 Apr, Neuropathy G62.9 [facility] [address] 00082 2546 05 Apr, 2016 [facility] [address] 05661 2546 Apr, Back pain M54.9 [facility] [id number] [place] [address] 83832 2546 Mar, Type 2 diabetes mellitus with diabetic autonomic (poly) neuropathy E11.43 [facility] [address] [place] [address]- 9812 Mar, Type 2 diabetes mellitus without complications E11.9 [facility] [id number] [place] [address] 95408- 7538 Mar, Neuropathy G62.9 [facility] [id number] [place] [address] 66955- 2074 Mar, [facility] [address] 36539- 1827 Mar, Breast cancer screening Z12.39 [facility] [address] 72078- 2365 Mar, Other dorsalgia M54.89 [facility] [id number] [place] [address] 40999- 0475 Feb, [facility] [address] 70187- 1382 30 Jan, 2016 Neuropathy G62.9 ; Type 2 diabetes mellitus with diabetic autonomic (poly)neuropathy E11.43 ; Uncomplicated asthma, unspecified asthma severity J45.909 and Encounter for immunization Z23 [facility] [id number] [place] [address] 63078- 4081 09 Jan, 2016 [facility] [id number] [place] [address] 55122- 5889 Jan, [facility] [id number] [place] [address] 54075- 2098 Dec, [facility] [id number] [place] [address] 43848- 5647 Dec, [facility] [id number] [place] [address] 07237- 6056 Nov, [facility] [id number] [place] [address] 63276- 3774 15 Nov, 2015 Back pain M54.9 [facility] [id number] [place] [address] 49091- 7968 Nov, Neuropathy G62.9 ; Mixed hyperlipidemia E78.2 ; Type 2 diabetes mellitus with diabetic autonomic (poly)neuropathy E11.43 and [facility] current use of insulin Z79.4 [facility] [id number] [place] [address] 14616- 0836 Oct, [facility] [id number] [place] [address] 01554- 3809 Oct, Other dorsalgia M54.89 [facility] [id number] [place] [address] [phone] September, Primary insomnia F51.01 [place] [address] [phone]- [address] September, [facility] [id number] [place] [address] [id number]- [phone] Aug, Other dorsalgia M54.89 [facility] [id number] [place] [address] 40043- 9976 Jul, [facility] [id number] [place] [address] [id number]- 0613 Jul, Other dorsalgia M54.89 [facility] [id number] [place] [address] 08634- 8834 Jul, Diabetes E11.9 ; Back pain M54.9 ; Neuropathy G62.9 and Gastroparesis K31.84 [facility] [id number] [place] [address] [id number]- 0387 Jun, [facility] [id number] [place] [address] 05909- 0488 Jun, Other dorsalgia M54.89 [facility] [id number] [place] [address] [phone]- 6222 May, [facility] [id number] [place] [address] [id number]- 1028 May, Radicular leg pain M54.10 and Other dorsalgia M54.89 [facility] [id number] [place] [address] 26609- 5482 Apr, [facility] [id number] [place] [address] 53022- 5358 Mar, [facility] [id number] [place] [address] [phone]- [phone] Mar, [facility] [id number] [place] [address] 56988- 5655 Mar, Radicular leg pain M54.10 [facility] [id number] [place] [address] [phone]- 7977 Feb, [facility] [id number] [place] [address] [phone]- [phone] Feb, [facility] [id number] [place] [address] [phone]- [phone] Feb, [facility] [id number] [place] [address] [phone]- [phone] Jan, [facility] [id number] [place] [address] [phone] Jan, IBS (irritable bowel syndrome) 564.1 [facility] [id number] [place] [address] 97960- 6674 Jan, [facility] [id number] [place] [address]95- 1975 Jan, [facility] [id number] [place] [address] 04362- 9805 Jan, Diabetes mellitus without mention of complication, type II or unspecified type, not stated as uncontrolled 250.00 ; Gastroparesis 536.3 and Hypoacusis 389.9 [facility] [id number] [place] [address] 16670- 0192 Jan, [facility] [id number] [place] [address] [id number] Jan, [facility] [address] [address] Dec, [facility] [id number] [place] [address] [id number]- 8417 Dec, [facility] [id number] [place] [address] 53834- 4456 Dec, [facility] [id number] [place] [address] 69845- 4926 Dec, Back pain 724.5 and Gastroparesis 536.3 [facility] [id number] [place] [address] 71268- 2941 Nov, [facility] [address] [place] [address] [id number] Nov, Dental examination V72.2 [facility] [id number] [place] [address] 68449- 5295 Nov, [facility] [id number] [place] [address] 24977- 4923 Nov, [facility] [address] [place] [address] 99034- 6286 Nov, Depressive disorder, not elsewhere classified 311 and No condition on [place] II V71.09 [facility] [id number] [place] [address] 93533- 9673 Nov, Diabetes 250.00 and Symptomatic menopausal or female climacteric states 627.2 [facility] [address] [address] Oct, [facility] [id number] [place] [address] 19233- 3204 Oct, Lumbar strain 847.2 [facility] [address] [address] Oct, Gastroparesis 536.3 and Unspecified myalgia and myositis 729.1 [facility] [address] [id number] [place] [address]476 14 Aug, 2014 [facility] [address] [facility] [id number] [address] Aug, [facility] [address] [facility] [id number] [place] [address] 3360 Jul, [facility] [address] [id number] [place] [address] 6313 Jul, [facility] [address] [id number] [place] [address] 4115 Jul, [facility] [address] [facility] [id number] [place] [address] 1988 Jul, [facility] [address] [id number] [address] 4021 Jul, [facility] [address] [facility] [id number] [place] [address] 6271 Jun, [facility] [address] [facility] [id number] [place] [address] 5139 Jun, [facility] [address] [facility] [id number] [place] [address] 5931 Jun, [facility] [address] [facility] [id number] [address]- 0935 May, [facility] [address] [facility] [id number] [place] [address] 6796 May, [facility] [address] [facility] [id number] [place] [address] Mar, [facility] [address] [facility] [id number] [place] [address] Mar, [facility] [address] [id number] [address] 6735 Mar, [facility] [address] [id number] [place] [address]- 0574 Mar, [facility] [address] [id number] [place] [address]- 9786 Mar, [facility] [place] [facility] [address] [id number] [place] [address]- 7354 Mar, [facility] [address] [id number] [place] [address]- 0105 Feb, [facility] [place] [facility] [address] [id number] [place] [address]- 7921 Feb, [facility] [address] [id number] [place] [address]- 6338 Nov, [facility] [address] [id number] [place] [address]- 3979 Nov, [facility] [place] [facility] [address] [id number] [place] [address]- 7779 Nov, [facility] [address] [id number] [place] [address]- 8885 Oct, [facility] [place] [facility] [address] [id number] [place] [address]- 2988 September, [facility] [address] [id number] [place] [address]- 9435 Aug, [facility] [place] [facility] [address] [id number] [place] [address]- 2623 15 Aug, 2012 [facility] [place] [facility] [address] [id number] [place] [address]- 8098 Aug, [facility] [place] [facility] [address] [id number] [place] [address]- 1185 Aug, [facility] [place] [facility] [address] [id number] [place] [address]- 2579 Aug, [facility] [place] [facility] [address] [id number] [place] [address]- 2126 Aug, [facility] [address] [id number] [place] [address]- 5287 Aug, [facility] [place] [facility] [address] [id number] [place] [address]- 6640 Aug, [facility] [place] [facility] [address] [id number] [place] [address]- 7054 Jul, [facility] [place] [facility] [address] [id number] [place] [address]- 0764 Jul, [facility] [place] [facility] [address] [id number] [place] [address]- 7470 Jun, [facility] [place] [facility] [address] [id number] [place] [address]- 4693 Jun, [facility] [place] [facility] [address] [id number] [place] [address]- 6852 Jun, [facility] [place] [facility] [address] [id number] [place] [address]- 8883 Jun, [facility] [place] [facility] [address] [id number] [place] [address]- 9982 Jun, [facility] [place] [facility] [address] [id number] [place] [address]- 5223 Jun, [facility] [place] [facility] [address] [id number] [place] [address]- 9669 Jun, [facility] [place] [facility] [address] [id number] [place] [address]- 6154 May, [facility] [place] [facility] [address] [id number] [place] [address]- 7893 May, [facility] [place] [facility] [address] [id number] [place] [address]- 1534 May, [facility] [place] [facility] [address] [id number] [place] [address]- 0284 May, [facility] [place] [facility] [address] [facility] [id number] [place] [address]- 0008 Mar, [facility] [address] [facility] [id number] [place] [address]- 0233 Mar, [facility] [address] [facility] [id number] [place] [address]- 9085 24 Jan, 2012 IMMUNIZATIONS No Known Immunizations SOCIAL HISTORY Never Assessed REASON FOR VISIT PLAN OF CARE VITAL SIGNS MEDICATIONS Medication Instructions Dosage Frequency Start Date End Date Duration Status TGT Nicotine Step Three 7 MG/24HR Transdermal Once a day 1 patch to skin 24h Jan, 30 day(s) Active TGT Nicotine Step Two 14 MG/24HR Transdermal Once a day 1 patch to skin 24h Jan, 30 day(s) Active RESULTS No Results PROCEDURES No Known [...]
--- OUTSIDE RECORDS SUMMARY | 2018-05-04 15:41 | XMS REPORT ---
Author Author HORACE HIGGINS [facility] Address [address] [place] [address] Care Team Providers Care [employer] Name Role Phone HORACE HIGGINS Unavailable PROBLEMS Type Condition ICD9-CM Code CER52-WM Code Onset Dates Condition Status SNOMED Code Problem Asthma exacerbation J45.901 Active 771573030 Problem Diabetic polyneuropathy associated with type 2 diabetes mellitus E11.42 Active 06547633 Problem Reactive depression F32.9 Active 35869454 Problem Other chronic pain G89.29 Active 66266891 Problem Neuropathy G62.9 Active 362878663 Problem Irritable bowel syndrome with constipation K58.1 Active 343600937 Problem Back pain M54.9 Active 669787804 Problem Low TSH level R94.6 Active 974825705 Problem Migraine without aura and without status migrainosus, not intractable G43.009 Active 103451018 Problem PTSD (post-traumatic stress disorder) F43.10 Active 45427142 Problem Tobacco dependency F17.200 Active 18966380 Problem Annual physical exam Z00.00 Active 513615164 Problem Mixed hyperlipidemia E78.2 Active 177787983 Problem Type 2 diabetes mellitus with diabetic autonomic (poly)neuropathy E11.43 Active 42852498 Problem Diabetes E11.9 Active 05333997 Problem Gastroparesis K31.84 Active 236205682 Problem Anorexia R63.0 Active 38743144 Problem Weight loss R63.4 Active 549721609 Problem 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 Active 643406102 Problem History of colon polyps Z86.010 Active 057563345 Problem Uncomplicated asthma, unspecified asthma severity J45.909 Active 265313055 Problem Primary insomnia F51.01 Active 6009595 ALLERGIES No Information ENCOUNTERS Encounter Location Date Diagnosis [facility] [address] [facility] [id number] [place] [address] Apr, [facility] [id number] [place] [address] 46371- 0214 Feb, [facility] [id number] [place] [address] 66212- 6256 Feb, [facility] [id number] [place] [address] 68939- 6171 Feb, PTSD (post-traumatic stress disorder) F43.10 [facility] [address] 05387- 4350 Feb, PTSD (post-traumatic stress disorder) F43.10 [facility] [id number] [place] [address] 55321- 2984 Feb, Pain in left shoulder M25.512 and Other chronic pain G89.29 [facility] [id number] [place] [address] 52636- 0867 Feb, LLQ pain R10.32 and Other dorsalgia M54.89 [facility] [id number] [place] [address] 20704- 2388 Feb, [facility] [id number] [place] [address] 45427- 1429 Feb, Right lower quadrant abdominal pain R10.31 ; Pain in left shoulder M25.512 ; Other chronic pain G89.29 and Encounter for immunization Z23 [facility] [id number] [place] [address] 89868- 7067 Feb, [facility] [id number] [place] [address] 45404- 7245 Jan, Dysfunction of left eustachian tube H69.82 [facility] [address] 63304- 7746 Jan, [facility] [id number] [place] [address] 12848- 3292 Jan, [facility] [id number] [place] [address] 69955- 7241 Jan, [facility] [id number] [place] [address] 57549- 9427 Jan, [facility] [id number] [place] [address] 44684- 3368 Jan, Left upper arm pain M79.622 [facility] [address] 11745- 5497 Jan, [facility] [address] 20902- 6769 Jan, PTSD (post-traumatic stress disorder) F43.10 and Tobacco dependency F17.200 [place] [address] 67337- 9723 Jan, Back pain M54.9 ; Type 2 diabetes mellitus with diabetic autonomic (poly)neuropathy E11.43 ; Neuropathy G62.9 ; Irritable bowel syndrome with constipation K58.1 ; Sprain of other part of left shoulder region, initial encounter S43.492A and Dysfunction of left eustachian tube H69.82 [facility] [id number] [place] [address] 98808- 5128 Jan, [place] [id number] [place] [address] 47561- 7986 Jan, Neuropathy G62.9 ; LLQ pain R10.32 and Other dorsalgia M54.89 [facility] [id number] [place] [address] 75644- 1136 Jan, [facility] [id number] [place] [address] 83347- 1804 Jan, [facility] [address] 51313- 4119 Dec, Right upper quadrant abdominal pain R10.11 [facility] [id number] [place] [address] 59475- 1449 Dec, PTSD (post-traumatic stress disorder) F43.10 [place] [id number] [place] [address] 55483- 5719 Dec, LLQ pain R10.32 [place] [address] 25041- 7033 Dec, Other dorsalgia M54.89 [place] [address] 13888- 5804 Dec, Neuropathy G62.9 [place] [address] 40015- 4114 Dec, [place] [address] 26412- 3734 Nov, Irritable bowel syndrome with constipation K58.1 ; Uncomplicated asthma, unspecified asthma severity J45.909 and Type 2 diabetes mellitus with diabetic autonomic (poly)neuropathy E11.43 [facility] [address] [id number] Nov, Dental examination Z01.20 [place] [address] 38360- 2545 Nov, Other dorsalgia M54.89 [place] [address] 02539- 4296 Nov, LLQ pain R10.32 ; Low TSH level R94.6 and Gastroparesis K31.84 [place] [address] 48786- 3733 Nov, Anorexia R63.0 [place] [address] 76129- 4207 Nov, Asthma exacerbation J45.901 [place] [address] 86301- 0075 Oct, PTSD (post-traumatic stress disorder) F43.10 [place] [address] 87982- 0881 Oct, [place] [facility] [id number] [place] [address] 16312- 5984 19 Oct, 2017 PTSD (post-traumatic stress disorder) F43.10 and Tobacco dependency F17.200 [place] [id number] [place] [address] 27566- 0193 18 Oct, 2017 [place] [address] 43434- 3387 Oct, Other dorsalgia M54.89 [place] [address] 43476- 2846 Oct, Anorexia R63.0 [place] [address] 582689- 5993 September, PTSD (post-traumatic stress disorder) F43.10 [place] [address] 34404- 5296 15 Sep, 2017 Low TSH level R94.6 [place] [address] 18360- 3999 September, Other dorsalgia M54.89 [place] [address] 22573- 0400 September, Annual physical exam Z00.00 and Migraine without aura and without status migrainosus, not intractable G43.009 [place] [id number] [place] [address] 56622- 7214 September, Abnormal TSH R94.6 and Dysfunction of left eustachian tube H69.82 [place] [id number] [place] [address] 30442- 3334 Aug, [facility] [address] 27398- 4176 Aug, Anorexia R63.0 [facility] [id number] [place] [address] [id number] Aug, Dental examination Z01.20 and Xerostomia K11.7 [place] [id number] [place] [address] 33355- 6747 Aug, Neuropathy G62.9 [facility] [address] 34068- 9596 Aug, [facility] [id number] [place] [address] 37235- 6216 Aug, Other dorsalgia M54.89 [facility] [address] 99214- 7752 Aug, Type 2 diabetes mellitus with diabetic autonomic (poly) neuropathy E11.43 ; Diabetic polyneuropathy associated with type 2 diabetes mellitus E11.42 ; Bronchitis J40 ; Gastroparesis K31.84 and Reactive depression F32.9 [facility] [id number] [place] [address] 90851- 4849 Aug, PTSD (post-traumatic stress disorder) F43.10 [facility] [id number] [place] [address] 63516- 5156 Aug, Other dorsalgia M54.89 and Anorexia R63.0 [facility] [address] 19416- 8609 Jul, [facility] [id number] [place] [address] 90063- 0105 Jul, Other dorsalgia M54.89 [facility] [id number] [place] [address] 92193- 1877 Jul, [facility] [id number] [place] [address] 21896- 9221 Jul, [facility] [address] 38240- 9679 Jul, PTSD (post-traumatic stress disorder) F43.10 [facility] [id number] [place] [address] 48928- 4106 Jul, [facility] [id number] [place] [address] 4005 Jul, [facility] [id number] [place] [address] 61558- 4656 Jul, [facility] [id number] [place] [address] 72548 2546 Jul, Anorexia R63.0 [facility] [id number] [place] [address] 67216- 9026 Jun, [facility] [id number] [place] [address] 98799- 8206 Jun, Vaginal discharge N89.8 ; Visit for gynecologic examination Z01.419 and Pelvic pressure in female R10.2 [facility] [id number] [place] [address] 96200- 5036 Jun, [facility] [id number] [place] [address] 10664- 2766 Jun, Other dorsalgia M54.89 [facility] [id number] [place] [address] 09895- 6861 Jun, [facility] [id number] [place] [address] 40715- 7746 Jun, [facility] [id number] [place] [address] 04573- 5254 Jun, [facility] [id number] [place] [address] 92319 2546 May, Back pain M54.9 [facility] [id number] [place] [address] 12736 2546 May, Anorexia R63.0 [facility] [id number] [place] [address] 04190 2546 May, Other dorsalgia M54.89 [facility] [id number] [place] [address] 35446 2546 May, [facility] [address] 11683- 6354 May, Bronchitis J40 [place] [address] 47695- 6051 May, Type 2 diabetes mellitus with diabetic autonomic (poly) neuropathy E11.43 ; 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 ; Back pain M54.9 and Neuropathy G62.9 [place] [address] 73605- 0570 May, Left breast mass N63.20 [place] [address] 96257- 1554 May, [place] [address] 07136- 1893 Apr, Other dorsalgia M54.89 [place] [address] 06312- 3728 Apr, Anorexia R63.0 [place] [address] 10556- 7185 Apr, Anorexia R63.0 [place] [address] 30731- 4354 Apr, Mass of left breast N63.20 [place] [address] 25734- 3822 Apr, [place] [address] 23816- 1764 Apr, [place] [address] 38321- 5361 Apr, Diarrhea of presumed infectious origin A09 [place] [address] 95072- 8792 Apr, Encounter for immunization Z23 [place] [address] 41642- 2434 05 Apr, 2017 [place] [id number] [place] [address] 07685- 6630 Mar, Other dorsalgia M54.89 [facility] [address] 93176- 0699 Mar, [facility] [id number] [place] [address] 00426- 6594 Mar, [facility] [address] 17084 Mar, Anorexia R63.0 [facility] [address] 95305- 7446 Mar, [facility] [address] 54062- 1367 Mar, Other dorsalgia M54.89 [facility] [address] 35751- 5942 Mar, [facility] [address] 24036- 6742 Mar, Encounter for immunization Z23 [facility] [address] 69094- 5479 Feb, Anorexia R63.0 [facility] [id number] [place] [address] 73384- 9061 Feb, Diabetes E11.9 [facility] [address] 30622- 2260 Feb, Back pain M54.9 and Diabetes E11.9 [facility] [id number] [place] [address] 45665- 1105 Feb, Diabetes E11.9 [facility] [address] 93916- 5348 Feb, Neuropathy G62.9 [facility] [id number] [place] [address] 66703- 2930 Feb, Encounter for immunization Z23 ; Epigastric pain R10.13 ; Weight loss, abnormal R63.4 and Neuropathy G62.9 [facility] [id number] [place] [address] [id number] Feb, [facility] [id number] [place] [address] 26128- 6584 Feb, [facility] [id number] [place] [address] 33649- 9718 Feb, Intractable vomiting with nausea, unspecified vomiting type R11.2 [facility] [id number] [place] [address] 25176 -2466 Feb, Chronic nausea R11.0 [facility] [id number] [place] [address] 45461- 1457 Feb, Other dorsalgia M54.89 [facility] [id number] [place] [address] 73250- 6868 Jan, [facility] [id number] [place] [address] 16212- 8347 Jan, [facility] [id number] [place] [address] 74345- 4271 Jan, [facility] [id number] [place] [address] 12518- 1418 Jan, [facility] [id number] [place] [address] 27076- 1344 Jan, Asthma exacerbation J45.901 ; Bronchitis J40 and Neuropathy G62.9 [facility] [id number] [place] [address] 13928- 5101 Jan, Anorexia R63.0 [facility] [id number] [place] [address] 62786- 1660 Jan, Other dorsalgia M54.89 [facility] [id number] [place] [address] 82069- 7213 Dec, [facility] [address] [address]- 6027 16 Dec, 2016 [facility] [id number] [place] [address] 76899- 7757 Dec, Anorexia R63.0 [facility] [id number] [place] [address] 79989- 5988 Dec, Primary insomnia F51.01 [facility] [id number] [place] [address] 82265- 5566 Dec, Other dorsalgia M54.89 [facility] [id number] [place] [address] 61881- 2423 Dec, [facility] [id number] [place] [address] 33076- 4126 Nov, [facility] [id number] [place] [address] 94336- 2904 Nov, [facility] [id number] [place] [address] 86783- 0750 Nov, [facility] [id number] [place] [address] 28679- 2583 Nov, History of colon polyps Z86.010 [facility] [address] [address]- 5059 Nov, Weight loss R63.4 ; Nausea and vomiting, intractability of vomiting not specified, unspecified vomiting type R11.2 and Abnormal LFTs R79.89 [facility] [address] [address]- 0841 Nov, [facility] [id number] [place] [address] 69317- 7596 Nov, Neuropathy G62.9 and Pain in right knee M25.561 [facility] [address] [place] [address]- 4313 Nov, Back pain M54.9 [facility] [id number] [address]- 6835 Nov, [facility] [id number] [place] [address] 62419- 4069 Nov, Bronchitis J40 [facility] [id number] [place] [address] 60076- 8027 Nov, Weight loss R63.4 [facility] [id number] [place] [address] 55628- 4983 Oct, Back pain M54.9 [facility] [id number] [place] [address] 32950- 4108 Oct, [facility] [id number] [place] [address] 09242- 2638 Oct, Back pain M54.9 [facility] [id number] [place] [address] 75489- 8935 Oct, Type 2 diabetes mellitus without complications E11.9 and Bronchitis J40 [facility] [id number] [place] [address] 36733- 7038 Oct, [facility] [id number] [place] [address] 83921- 7166 Oct, [facility] [id number] [place] [address] 17010- 6781 September, Gastroparesis K31.84 ; Type 2 diabetes mellitus with diabetic autonomic (poly)neuropathy E11.43 and Neuropathy G62.9 [facility] [address], [place] [address]- 8139 September, Other dorsalgia M54.89 [facility] [id number] [place] [address] 44822- 3644 September, [facility] [address] [address]- 7997 September, [facility] [id number] [place] [address] 26029- 6160 Aug, Gastroparesis K31.84 and Radicular leg pain M54.10 [facility] [address] 46029- 7736 Aug, Anorexia R63.0 [facility] [address] 17795- 5340 Aug, Bronchitis J40 [facility] [address] 19797- 7218 Aug, Back pain M54.9 [place] [address] 27573- 1081 Aug, Routine gynecological examination Z01.419 ; Routine screening for STI (sexually transmitted infection) Z11.3 and Yeast infection of the vagina B37.3 [place] [address] 37401- 7983 Jul, Other dorsalgia M54.89 [place] [address] 90955- 6820 Jul, Diabetes E11.9 and Gastroparesis K31.84 [place] [address] 98768- 5858 Jun, [facility] [address] 49547- 9547 Jun, Back pain M54.9 [facility] [address] 04273- 7949 Jun, Neuropathy G62.9 [facility] [address] [id number] Jun, Encounter for dental examination Z01.20 [facility] [address] 50060- 4752 Jun, Gastroparesis 536.3 and Anorexia R63.0 [facility] [address] 89953- 2057 May, Other dorsalgia M54.89 [facility] [id number] [place] [address] 08345 2546 May, Periumbilical abdominal pain R10.33 ; Weight loss R63.4 and Gastroparesis K31.84 [facility] [address] 53705 2546 May, Back pain M54.9 [facility] [address] 63018 2546 Apr, Anorexia R63.0 [facility] [address] 08994 2546 Apr, Anorexia R63.0 [facility] [address] 69151 2546 16 Apr, 2016 Back pain M54.9 [facility] [address] 36384 2546 15 Apr, 2016 Back pain M54.9 [facility] [address] 82242 2546 Apr, [facility] [address] 02648 2546 Apr, Bronchitis J40 and Neuropathy G62.9 [facility] [address] 50678 2546 Apr, Neuropathy G62.9 [facility] [address] 03610 2546 05 Apr, 2016 [facility] [address] 51091 2546 Apr, Back pain M54.9 [facility] [address] 18296 2546 30 Mar, 2016 Type 2 diabetes mellitus with diabetic autonomic (poly) neuropathy E11.43 [facility] [address] [place] [address]- 0239 Mar, Type 2 diabetes mellitus without complications E11.9 [facility] [address] 19313- 8615 Mar, Neuropathy G62.9 [facility] [id number] [place] [address] 63145- 9576 Mar, [facility] [address] 53643- 6853 Mar, Breast cancer screening Z12.39 [facility] [address] 04605- 8060 Mar, Other dorsalgia M54.89 [facility] [address] 92062- 8268 Feb, [facility] [address] 59635- 6414 Jan, Neuropathy G62.9 ; Type 2 diabetes mellitus with diabetic autonomic (poly)neuropathy E11.43 ; Uncomplicated asthma, unspecified asthma severity J45.909 and Encounter for immunization Z23 [facility] [id number] [place] [phone]- [address] Jan, [facility] [id number] [place] [address] 339[address]- 4698 Jan, [facility] [id number] [place] [address] 11464- 8180 Dec, [facility] [id number] [place] [address] [id number]- 8298 Dec, [facility] [id number] [place] [address] [phone]- [address] Nov, [facility] [id number] [place] [address] 77957- 46[address] Nov, Back pain M54.9 [facility] [address] [address] Nov, Neuropathy G62.9 ; Mixed hyperlipidemia E78.2 ; Type 2 diabetes mellitus with diabetic autonomic (poly)neuropathy E11.43 and correction current use of insulin Z79.4 [facility] [id number] [place] [address] 71661- 3640 Oct, [facility] [id number] [place] [address] 79796- 9902 Oct, Other dorsalgia M54.89 [facility] [id number] [place] [address] 42407- 8904 September, Primary insomnia F51.01 [facility] [address] [address]- [address] September, [facility] [id number] [place] [phone]- [phone] Aug, Other dorsalgia M54.89 [facility] [id number] [place] [address] 23618- 4278 Jul, [facility] [id number] [place] [address] 67319- 6770 Jul, Other dorsalgia M54.89 [facility] [id number] [place] [address] 81229- 1731 Jul, Diabetes E11.9 ; Back pain M54.9 ; Neuropathy G62.9 and Gastroparesis K31.84 [facility] [id number] [place] [address] 09986- 7528 Jun, [facility] [id number] [place] [address] 99913- 6798 Jun, Other dorsalgia M54.89 [facility] [id number] [place] [address] 99652- 7540 May, [facility] [id number] [place] [address] 14595- 3533 May, Radicular leg pain M54.10 and Other dorsalgia M54.89 [facility] [id number] [place] [address] 23310- 8767 Apr, [facility] [id number] [place] [address] 20689- 9932 Mar, [facility] [id number] [place] [address] 19026- 2487 Mar, [facility] [id number] [place] [address] 31385- 4925 Mar, Radicular leg pain M54.10 [facility] [id number] [place] [address] 69091- 9640 Feb, [facility] [id number] [place] [address] 89617- 1125 Feb, [facility] [id number] [place] [address] 12482- 3933 Feb, [facility] [id number] [place] [address] 14528- 0055 Jan, [facility] [id number] [place] [address] 02398- 1963 Jan, IBS (irritable bowel syndrome) 564.1 [facility] [id number] [place] [address] 38260- 6841 Jan, [facility] [id number] [place] [address] 54454- 5423 Jan, [facility] [id number] [place] [address] 57977- 3581 Jan, Diabetes mellitus without mention of complication, type II or unspecified type, not stated as uncontrolled 250.00 ; Gastroparesis 536.3 and Hypoacusis 389.9 [facility] [id number] [place] [address] 42608- 5800 Jan, [facility] [id number] [place] [address] 10924- 8669 Jan, [facility] [id number] [address] Dec, [facility] [id number] 2619 Dec, [facility] [id number] [address] 1528 Dec, [facility] [id number] [place] [address] 43585- 3715 Dec, Back pain 724.5 and Gastroparesis 536.3 [facility] [id number] [place] [address] 07807- 6773 Nov, [facility] [id number] [id number] Nov, Dental examination V72.2 [facility] [id number] [place] [address] 71289- 6736 Nov, [facility] [id number] [address] 9152 Nov, [facility] [id number] [place] [address] 74350- 9000 Nov, Depressive disorder, not elsewhere classified 311 and No condition on Bejou II V71.09 [facility] [id number] [address] 6[address] Nov, Diabetes 250.00 and Symptomatic menopausal or female climacteric states 627.2 [facility] [id number] [address] 9265 Oct, [facility] [address] [place] [address] 9366 Oct, Lumbar strain 847.2 [facility] [id number] [address]- 6135 Oct, Gastroparesis 536.3 and Unspecified myalgia and myositis 729.1 [facility] [address] [id number] [place] [address]- 8615 14 Aug, 2014 [facility] [address] [id number] [place] [address]- 8034 Aug, [facility] [address] [facility] [id number] [place] [address]- 5895 Jul, [facility] [address] [id number] [place] [address]- 2746 Jul, [facility] [address] [id number] [place] [address]- 0471 Jul, [facility] [address] [facility] [id number] [place] [address]- 6326 Jul, [facility] [address] [facility] [id number] [place] [address]- 5108 Jul, [facility] [address] [id number], [place] [address]- 5756 Jun, [facility] [address] [facility] [id number] [place] [address]- 7184 Jun, [facility] [address] [facility] [id number] [place] [address]- 7496 Jun, [facility] [address] [facility] [id number], [place] [address]- 6061 May, [facility] [address] [facility] [id number], [place] [address]- 8980 May, [facility] [place] [facility] [address] [id number], [place] [address]- 9882 Mar, [facility] [address] [facility] [id number] 5360 Mar, [facility] [address] [facility] [id number] [place] [address]- 2175 Mar, [facility] [address] [id number] [place] [address]- 3255 Mar, [facility] [address] [id number] [place] [address]- 8471 Mar, [facility] [address] [id number] [place] [address]- 2265 Mar, [facility] [address] [id number] [place] [address]- 3452 Feb, [facility] [address] [id number] [place] [address]- 2691 Feb, [facility] [address] [id number] [place] [address]- 9738 Nov, [facility] [address] [id number] [place] [address]- 7950 Nov, [facility] [address] [id number] [place] [address]- 2271 Nov, [facility] [address] [id number] [place] [address]- 3204 Oct, [facility] [address] [id number] [place] [address]- 4329 September, [facility] [address] [id number] [place] [address]- 6598 Aug, [facility] [address] [id number] [place] [address]- 0507 15 Aug, 2012 [facility] [address] [id number] [place] [address]- 0200 Aug, [facility] [place] [facility] [address] [id number] [place] [address]- 0119 Aug, [facility] [place] [facility] [address] [id number] [place] [address]- 5675 10 Aug, 2012 [facility] [address] [id number] [place] [address]- 3401 Aug, [facility] [address] [id number] [place] [address]- 2878 Aug, [facility] [address] [id number] [place] [address]- 0986 Aug, [facility] [address] [id number] [place] [address]- 0191 Jul, [facility] [place] [facility] [address] [id number] [place] [address]- 5491 Jul, [facility] [address] [id number] [place] [address]- 6718 Jun, [facility] [place] [facility] [address] [id number] [place] [address]- 3887 Jun, [facility] [address] [id number] [place] [address]- 8453 Jun, [facility] [address] [id number] [place] [address]- 6792 Jun, [facility] [address] [id number] [place] [address]- 3910 Jun, [facility] [address] [id number] [place] [address]- 3574 Jun, [facility] [address] [id number] [place] [address]- 1202 Jun, [facility] [place] [facility] [address] [id number] [place] [address]- 6513 May, [facility] [place] [facility] [address] [id number] [place] [address]- 4818 May, [facility] [place] [facility] [address] [id number] [place] [address]- 4855 May, [facility] [place] [facility] [address] [id number] [place] [address]- 9804 May, [facility] [place] [facility] [address] [facility] [id number] [place] [address]- 0767 Mar, [facility] [address] [facility] [id number] [place] [address]- 9264 Mar, [facility] [address] [facility] [id number] [place] [address]- 3612 Jan, IMMUNIZATIONS No Known Immunizations SOCIAL HISTORY Never Assessed REASON FOR VISIT Pharmacy PLAN OF CARE VITAL SIGNS MEDICATIONS Unknown [...] vomitting-[facility] 03/05/17 Hospitalization History hospital stay at [facility] for stomach issues 2016
--- OUTSIDE RECORDS SUMMARY | 2018-05-04 15:42 | XMS REPORT ---
Author Author DELLA MARINELLI [facility] Address [address] [place] [address] Care Team Providers Care Hospice Team Lead Name Role Phone DELLA MARINELLI Unavailable PROBLEMS ALLERGIES ENCOUNTERS IMMUNIZATIONS SOCIAL HISTORY No smoking Hx information available REASON FOR VISIT PLAN OF CARE VITAL SIGNS MEDICATIONS RESULTS No Results PROCEDURES INSTRUCTIONS MEDICATIONS ADMINISTERED No Known Medications MEDICAL (GENERAL) HISTORY
--- OUTSIDE RECORDS SUMMARY | 2018-05-04 15:43 | XMS REPORT ---
Author Author GABE BARTLETT Organization [facility] Address [address] [place] [address] Care Team Providers Care Telecommunications Field Technician Name Role Phone GABE BARTLETT Unavailable PROBLEMS Type Condition ICD9-CM Code XZM97-CT Code Onset Dates Condition Status SNOMED Code Problem Primary insomnia F51.01 Active 4811700 Problem Reactive depression F32.9 Active 26372467 Problem Asthma exacerbation J45.901 Active 047998347 Problem Irritable bowel syndrome with constipation K58.1 Active 953902783 Problem Back pain M54.9 Active 793056536 Problem Tobacco dependency F17.200 Active 70587929 Problem Low TSH level R94.6 Active 809680000 Problem PTSD (post-traumatic stress disorder) F43.10 Active 00754269 Problem Diabetic polyneuropathy associated with type 2 diabetes mellitus E11.42 Active 85466794 Problem Annual physical exam Z00.00 Active 250512868 Problem Migraine without aura and without status migrainosus, not intractable G43.009 Active 335558194 Problem Gastroparesis K31.84 Active 876079121 Problem 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 use of insulin Z79.4 Active 196706513 Problem Neuropathy G62.9 Active 018155807 Problem Diabetes E11.9 Active 98897664 Problem Uncomplicated asthma, unspecified asthma severity J45.909 Active 689193914 Problem Anorexia R63.0 Active 10539023 Problem Mixed hyperlipidemia E78.2 Active 916780679 Problem Weight loss R63.4 Active 552029091 Problem Type 2 diabetes mellitus with diabetic autonomic (poly)neuropathy E11.43 Active 75451239 Problem History of colon polyps Z86.010 Active [id number] ALLERGIES No Information ENCOUNTERS Encounter Location Date Diagnosis [facility] [address] [facility] [id number] [address] Apr, [facility] [address] [id number] [address] Feb, [facility] [id number] [place] [address] 46456- 1871 25 Jan, 2018 Dysfunction of left eustachian tube H69.82 [facility] [id number] [place] [address] 06603- 3149 24 Jan, 2018 [facility] [id number] [place] [address] 28406- 9944 21 Jan, 2018 [facility] [id number] [place] [address] 48652- 6240 19 Jan, 2018 [facility] [id number] [place] [address] 03114- 9807 19 Jan, 2018 [facility] [id number] [place] [address] 09449- 0788 18 Jan, 2018 Left upper arm pain M79.622 [facility] [id number] [place] [address] 31693- 4712 18 Jan, 2018 [facility] [id number] [place] [address] 62808- 2353 18 Jan, 2018 PTSD (post-traumatic stress disorder) F43.10 and Tobacco dependency F17.200 [place] [id number] [place] [address] 60847- 4609 10 Jan, 2018 Back pain M54.9 ; Type 2 diabetes mellitus with diabetic autonomic (poly)neuropathy E11.43 ; Neuropathy G62.9 ; Irritable bowel syndrome with constipation K58.1 ; Sprain of other part of left shoulder region, initial encounter S43.492A and Dysfunction of left eustachian tube H69.82 [facility] [id number] [place] [address] 13006- 3229 06 Jan, 2018 [facility] [id number] [place] [address] 36810- 5751 05 Jan, 2018 Neuropathy G62.9 ; LLQ pain R10.32 and Other dorsalgia M54.89 [place] [address] [place] [address] 8679 Jan, [facility] [id number] [place] [address] 82024- 8661 Jan, [facility] [id number] [place] [address] 05743- 7036 Dec, Right upper quadrant abdominal pain R10.11 [facility] [address] 97365- 2128 Dec, PTSD (post-traumatic stress disorder) F43.10 [facility] [id number] [place] [address] 01496- 0969 Dec, LLQ pain R10.32 [place] [address] 05106- 0431 Dec, Other dorsalgia M54.89 [place] [address] 28088- 9519 Dec, Neuropathy G62.9 [place] [address] 84999- 3515 Dec, [place] [address] 72636- 2388 Nov, Irritable bowel syndrome with constipation K58.1 ; Uncomplicated asthma, unspecified asthma severity J45.909 and Type 2 diabetes mellitus with diabetic autonomic (poly)neuropathy E11.43 [facility] [id number] [place] [address] [id number] Nov, Dental examination Z01.20 [place] [id number] [place] [address] 42641- 4131 Nov, Other dorsalgia M54.89 [facility] [address] 07309- 6746 Nov, LLQ pain R10.32 ; Low TSH level R94.6 and Gastroparesis K31.84 [place] [address] [place] [address]- 0631 09 Nov, 2017 Anorexia R63.0 [facility] [id number] [place] [address] 09335- 8196 Nov, Asthma exacerbation J45.901 [facility] [id number] [place] [address] 46723 2546 27 Oct, 2017 PTSD (post-traumatic stress disorder) F43.10 [place] [address] 31935- 0106 Oct, [place] [address] 50737- 9116 Oct, PTSD (post-traumatic stress disorder) F43.10 and Tobacco dependency F17.200 [place] [id number] [place] [address] 30283- 0166 Oct, [place] [address] 19110- 2761 Oct, Other dorsalgia M54.89 [place] [id number] [place] [address] 75545- 2735 Oct, Anorexia R63.0 [place] [id number] [place] [address] 14726- 9328 September, PTSD (post-traumatic stress disorder) F43.10 [place] [id number] [place] [address] 74092- 4820 September, Low TSH level R94.6 [place] [id number] [place] [address] 34738- 2303 September, Other dorsalgia M54.89 [place] [id number] [place] [address] 54005- 6436 September, Annual physical exam Z00.00 and Migraine without aura and without status migrainosus, not intractable G43.009 [place] [id number] [place] [address] 02107- 7521 September, Abnormal TSH R94.6 and Dysfunction of left eustachian tube H69.82 [facility] [address] 58814- 8633 Aug, [facility] [address] 94969- 4704 Aug, Anorexia R63.0 [facility] [address] [id number] Aug, Dental examination Z01.20 and Xerostomia K11.7 [place] [address] 56398- 1342 Aug, Neuropathy G62.9 [place] [address] 26331- 0882 Aug, [place] [address] 61904- 8682 Aug, Other dorsalgia M54.89 [place] [address] 11703- 5279 Aug, Type 2 diabetes mellitus with diabetic autonomic (poly) neuropathy E11.43 ; Diabetic polyneuropathy associated with type 2 diabetes mellitus E11.42 ; Bronchitis J40 ; Gastroparesis K31.84 and Reactive depression F32.9 [place] [address] 15094- 2979 Aug, PTSD (post-traumatic stress disorder) F43.10 [facility] [address] 71873- 1829 Aug, Other dorsalgia M54.89 and Anorexia R63.0 [place] [address] 78187- 2610 Jul, [facility] [address] 37013- 4323 Jul, Other dorsalgia M54.89 [place] [address] [place] [address]- 9325 Jul, [facility] [id number] [place] [address] 83646- 5841 Jul, [facility] [id number] [place] [address] 79126- 1074 Jul, PTSD (post-traumatic stress disorder) F43.10 [facility] [address] 80691- 4681 Jul, [facility] [id number] [place] [address] 81921- 9361 Jul, [facility] [id number] [place] [address] 90149- 0134 Jul, [facility] [id number] [place] [address] 00928- 9130 Jul, Anorexia R63.0 [facility] [id number] [place] [address] 43278- 4406 Jun, [facility] [id number] [place] [address] 08724- 7024 Jun, Vaginal discharge N89.8 ; Visit for gynecologic examination Z01.419 and Pelvic pressure in female R10.2 [facility] [id number] [place] [address] 79701- 2435 Jun, [facility] [id number] [place] [address] 12619- 4077 Jun, Other dorsalgia M54.89 [facility] [id number] [place] [address] 79735- 7326 16 Jun, 2017 [facility] [id number] [place] [address] 77693- 8686 07 Jun, 2017 [facility] [id number] [place] [address] 53459- 9086 Jun, [facility] [address] 75463- 6910 May, Back pain M54.9 [facility] [address] 59354- 5286 May, Anorexia R63.0 [facility] [address] 88140- 7677 May, Other dorsalgia M54.89 [facility] [address] 02761- 1224 May, [facility] [address] 39573- 9239 May, Bronchitis J40 [facility] [address] 41087- 2991 May, Type 2 diabetes mellitus with diabetic autonomic (poly) neuropathy E11.43 ; nursing home current use of insulin Z79.4 ; Back pain M54.9 and Neuropathy G62.9 [facility] [address] 68599- 6086 May, Left breast mass N63.20 [facility] [address] 42018- 7532 May, [facility] [address] 18711- 5323 Apr, Other dorsalgia M54.89 [facility] [id number] [place] [address] 86152- 6658 Apr, Anorexia R63.0 [facility] [address] 89415- 6547 Apr, Anorexia R63.0 [facility] [address] 47517- 7399 Apr, Mass of left breast N63.20 [facility] [address] 01333- 2737 Apr, [facility] [id number] [place] [address] 34671- 8920 18 Apr, 2017 [facility] [address] 86360- 3115 Apr, Diarrhea of presumed infectious origin A09 [facility] [id number] [place] [address] 11198- 4734 Apr, Encounter for immunization Z23 [facility] [address] 19729- 8596 Apr, [facility] [address] 08810- 8450 Mar, Other dorsalgia M54.89 [facility] [id number] [place] [address] 49686- 7951 Mar, [facility] [address] 14497- 1355 Mar, [facility] [id number] [place] [address] 71161- 5446 Mar, Anorexia R63.0 [facility] [address] 62672- 2015 Mar, [facility] [id number] [place] [address] 16003- 2795 Mar, Other dorsalgia M54.89 [facility] [id number] [place] [address] 82036- 7662 Mar, [facility] [id number] [place] [address] 26243 2545 Mar, Encounter for immunization Z23 [facility] [id number] [place] [address] 59295- 3676 Feb, Anorexia R63.0 [facility] [id number] [place] [address] 70249- 6026 Feb, Diabetes E11.9 [facility] [address] [place] [address]- 6937 Feb, Back pain M54.9 and Diabetes E11.9 [facility] [address] 33429- 7689 Feb, Diabetes E11.9 [facility] [address] 80217- 3749 Feb, Neuropathy G62.9 [facility] [address] 82686- 1062 Feb, Encounter for immunization Z23 ; Epigastric pain R10.13 ; Weight loss, abnormal R63.4 and Neuropathy G62.9 [facility] [address] [id number] Feb, [facility] [address] 14022- 6527 Feb, [facility] [address] 90438- 1852 Feb, Intractable vomiting with nausea, unspecified vomiting type R11.2 [facility] [address] 36314 -1408 Feb, Chronic nausea R11.0 [facility] [id number] [place] [address] 31395- 9419 Feb, Other dorsalgia M54.89 [facility] [id number] [place] [address] 11437- 3655 Jan, [facility] [address] 02840- 9335 Jan, [facility] [address] 80576- 3456 Jan, [facility] [id number] [place] [address] 26569- 8512 Jan, [facility] [address] 34572- 4271 08 Jan, 2017 Asthma exacerbation J45.901 ; Bronchitis J40 and Neuropathy G62.9 [facility] [address] 09010- 6513 06 Jan, 2017 Anorexia R63.0 [facility] [id number] [place] [address] 22185- 2845 Jan, Other dorsalgia M54.89 [facility] [address] 18827- 2185 Dec, [facility] [address] 06918- 6507 Dec, [facility] [address] 45699- 8212 Dec, Anorexia R63.0 [facility] [address] 18781- 0942 Dec, Primary insomnia F51.01 [facility] [id number] [place] [address] 76749- 5641 Dec, Other dorsalgia M54.89 [facility] [address] 77279- 9730 Dec, [facility] [id number] [place] [address] 83864- 6853 Nov, [facility] [id number] [place] [address] 87149- 2972 Nov, [facility] [id number] [place] [address] 76301- 8385 Nov, [facility] [address] 10506- 6643 Nov, History of colon polyps Z86.010 [facility] [id number] [place] [address] 65181- 6376 Nov, Weight loss R63.4 ; Nausea and vomiting, intractability of vomiting not specified, unspecified vomiting type R11.2 and Abnormal LFTs R79.89 [facility] [id number] [place] [address] 06292- 3461 18 Nov, 2016 [facility] [address] 75607- 5562 Nov, Neuropathy G62.9 and Pain in right knee M25.561 [facility] [address] 28740- 3463 Nov, Back pain M54.9 [facility] [id number] [place] [address] 88218- 6108 Nov, [facility] [address] 73344- 7022 Nov, Bronchitis J40 [facility] [address] 64305- 1046 Nov, Weight loss R63.4 [facility] [address] 87959- 0444 16 Oct, 2016 Back pain M54.9 [facility] [address] 24508- 2349 Oct, [facility] [id number] [place] [address] 13202- 5367 Oct, Back pain M54.9 [facility] [address] 30096- 1624 Oct, Type 2 diabetes mellitus without complications E11.9 and Bronchitis J40 [facility] [id number] [place] [address] 59970- 5505 Oct, [facility] [address] 72119- 0369 Oct, [facility] [id number] [place] [address] 82475- 7109 September, Gastroparesis K31.84 ; Type 2 diabetes mellitus with diabetic autonomic (poly)neuropathy E11.43 and Neuropathy G62.9 [facility] [id number] [place] [address] 33132- 5869 September, Other dorsalgia M54.89 [facility] [id number] [place] [address] 91881- 8116 September, [facility] [address] 31829- 5613 September, [facility] [address] 49528- 6688 Aug, Gastroparesis K31.84 and Radicular leg pain M54.10 [place] [address] 80532- 4066 Aug, Anorexia R63.0 [place] [address] 05821- 5791 Aug, Bronchitis J40 [place] [id number] [place] [address] 36247- 0980 Aug, Back pain M54.9 [place] [id number] [place] [address] 87362- 4012 Aug, Routine gynecological examination Z01.419 ; Routine screening for STI (sexually transmitted infection) Z11.3 and Yeast infection of the vagina B37.3 [place] [id number] [place] [address] 49249- 1490 Jul, Other dorsalgia M54.89 [facility] [id number] [place] [address] 63755- 5975 Jul, Diabetes E11.9 and Gastroparesis K31.84 [facility] [id number] [place] [address] 02149- 1393 Jun, [facility] [id number] [place] [address] 49743- 4451 Jun, Back pain M54.9 [place] [id number] [place] [address] 46771- 4710 14 Jun, 2016 Neuropathy G62.9 [facility] [address] [id number] 02 Jun, 2016 Encounter for dental examination Z01.20 [facility] [address] 57129- 1545 01 Jun, 2016 Gastroparesis 536.3 and Anorexia R63.0 [facility] [address] 63213 2544 27 May, 2016 Other dorsalgia M54.89 [facility] [address] 63902- 4507 10 May, 2016 Periumbilical abdominal pain R10.33 ; Weight loss R63.4 and Gastroparesis K31.84 [facility] [address] 40155- 8004 May, Back pain M54.9 [facility] [address] 38521 2546 Apr, Anorexia R63.0 [facility] [address] 22097 2546 Apr, Anorexia R63.0 [facility] [address] 70588 2546 16 Apr, 2016 Back pain M54.9 [facility] [address] 02097 2546 15 Apr, 2016 Back pain M54.9 [facility] [address] 79801 2546 Apr, [facility] [address] 81341 2546 Apr, Bronchitis J40 and Neuropathy G62.9 [facility] [address] 00252- 6305 Apr, Neuropathy G62.9 [facility] [id number] [place] [address] 69254- 3203 Apr, [facility] [id number] [place] [address] 25518- 3188 Apr, Back pain M54.9 [facility] [id number] [place] [address] 83815- 2312 Mar, Type 2 diabetes mellitus with diabetic autonomic (poly) neuropathy E11.43 [facility] [id number] [place] [address] 10504- 4827 Mar, Type 2 diabetes mellitus without complications E11.9 [facility] [id number] [place] [address] 31958- 4145 Mar, Neuropathy G62.9 [facility] [id number] [place] [address] 98494- 7611 Mar, [facility] [id number] [place] [address] 77217- 7648 Mar, Breast cancer screening Z12.39 [place] [address] 68774- 3159 Mar, Other dorsalgia M54.89 [facility] [id number] [place] [address] 75980- 6613 Feb, [facility] [id number] [place] [address] 43320- 5876 Jan, Neuropathy G62.9 ; Type 2 diabetes mellitus with diabetic autonomic (poly)neuropathy E11.43 ; Uncomplicated asthma, unspecified asthma severity J45.909 and Encounter for immunization Z23 [facility] [id number] [place] [address] 91476- 2164 Jan, [facility] [id number] [place] [address] 70403- 1938 Jan, [facility] [id number] [place] [address] 33593- 7497 Dec, [facility] [id number] [place] [address] 18244- 2618 Dec, [facility] [id number] [place] [address] 75798- 2999 Nov, [facility] [id number] [place] [address] 93300- 7726 Nov, Back pain M54.9 [facility] [id number] [place] [address] 07585- 3874 Nov, Neuropathy G62.9 ; Mixed hyperlipidemia E78.2 ; Type 2 diabetes mellitus with diabetic autonomic (poly)neuropathy E11.43 and nursing home current use of insulin Z79.4 [place] [facility] [id number] [place] [address] [phone]- 3736 Oct, [facility] [facility] [id number] [place] [address] 78836- 9343 Oct, Other dorsalgia M54.89 [facility] [id number] [place] [address] 48943- 9659 September, Primary insomnia F51.01 [facility] [id number] [place] [address] [phone]- 9139 September, [facility] [id number] [place] [address] [phone]- 9994 Aug, Other dorsalgia M54.89 [facility] [id number] [place] [address] 31039- 4605 Jul, [facility] [id number] [place] [address] 56314- 9795 Jul, Other dorsalgia M54.89 [facility] [id number] [place] [address] 67523- 3599 Jul, Diabetes E11.9 ; Back pain M54.9 ; Neuropathy G62.9 and Gastroparesis K31.84 [place] [address] [facility] [id number] [address] Jun, [facility] [id number] [place] [address] 58352- 3346 Jun, Other dorsalgia M54.89 [facility] [id number] [place] [address] [id number] 2546 May, [facility] [id number] [place] [address] 53627 2544 May, Radicular leg pain M54.10 and Other dorsalgia M54.89 [facility] [id number] [place] [address] 80940- 1207 Apr, [facility] [id number] [place] [address] [phone]- 6586 Mar, [facility] [id number] [place] [address] 15566- 0907 Mar, [facility] [id number] [place] [address] 70877- 5894 Mar, Radicular leg pain M54.10 [facility] [id number] [place] [address] 25709- 3711 Feb, [facility] [id number] [place] [address] 13750- 4042 Feb, [facility] [id number] [place] [address] 30774- 5491 Feb, [facility] [id number] [place] [address] 31787- 2673 Jan, [facility] [id number] [place] [address] 08179- 1438 22 Jan, 2015 IBS (irritable bowel syndrome) 564.1 [facility] [address] [address] Jan, [facility] [id number] [place] [address] 17930- 1413 Jan, [facility] [id number] [place] [address] 98504- 3314 Jan, Diabetes mellitus without mention of complication, type II or unspecified type, not stated as uncontrolled 250.00 ; Gastroparesis 536.3 and Hypoacusis 389.9 [facility] [id number] [place] [address] 98591- 7326 Jan, [facility] [id number] [place] [address] 61895- 8694 Jan, [facility] [id number] [place] [address] 38344- 2918 Dec, [facility] [id number] [place] [address] 18446- 2307 Dec, [facility] [id number] [place] [address] 11292- 5153 Dec, [facility] [id number] [place] [address] 70873- 3867 Dec, Back pain 724.5 and Gastroparesis 536.3 [facility] [id number] [place] [address] 73563- 7240 Nov, [facility] [id number] [place] [address] [id number] Nov, Dental examination V72.2 [facility] [id number] [place] [address] 87861- 9505 Nov, [facility] [id number] [place] [address] 26047- 3471 Nov, [facility] [id number] [place] [address] 23666- 6009 Nov, Depressive disorder, not elsewhere classified 311 and No condition on [place] II V71.09 [facility] [id number] [place] [address] 34311- 2546 Nov, Diabetes 250.00 and Symptomatic menopausal or female climacteric states 627.2 [facility] [address] [address] 6246 Oct, [facility] [id number] [address] 5506 Oct, Lumbar strain 847.2 [facility] [id number] [place] [address] 86433- 1746 Oct, Gastroparesis 536.3 and Unspecified myalgia and myositis 729.1 [facility] [id number] [place] [address] 17511- 8206 Aug, [facility] [id number] [address] 8266 Aug, [facility] [id number] [place] [address] 81912- 8586 Jul, [facility] [address] [address]- 2430 Jul, [facility] [address] [address]- 0157 Jul, [facility] [address] [address]- 9636 Jul, [facility] [address] [address]- 5286 Jul, [facility] [address] [address]- 7326 Jun, [facility] [address] [address]- 5026 Jun, [facility] [address] [address]- 2546 Jun, [facility] [address] [address]- 8360 May, [facility] [place] [facility] [address] [id number] [place] [address]- 8533 May, [facility] [place] [facility] [address] [id number] [place] [address]- 5545 Mar, [facility] [place] [facility] [address] [id number] [place] [address]- 8871 Mar, [facility] [place] [facility] [address] [id number] [place] [address]- 9195 Mar, [facility] [place] [facility] [address] [id number] [place] [address]- 3051 Mar, [facility] [place] [facility] [address] [id number] [place] [address]- 6676 Mar, [facility] [place] [facility] [address] [id number] [place] [address]- 4296 Mar, [facility] [place] [facility] [address] [id number] [place] [address]- 3205 Feb, [facility] [place] [facility] [address] [id number] [place] [address]- 5964 Feb, [facility] [place] [facility] [address] [id number] [place] [address]- 9820 Nov, [facility] [place] [facility] [address] [id number] [address]- 0348 Nov, [facility] [place] [facility] [address] [id number] [address]- 5556 Nov, [facility] [place] [facility] [address] [id number] [place] [address]- 6551 Oct, [facility] [place] [facility] [address] [id number] [place] [address]- 2926 September, [facility] [place] [facility] [address] [id number] [place] [address]- 7211 Aug, [facility] [place] [facility] [address] [id number] [place] [address]- 4205 15 Aug, 2012 [facility] [address] [id number] [place] [address]- 8845 11 Aug, 2012 [facility] [place] [facility] [address] [id number] [place] [address]- 8256 11 Aug, 2012 [facility] [address] [id number] [place] [address]- 6787 10 Aug, 2012 [facility] [place] [facility] [address] [id number] [place] [address]- 9795 09 Aug, 2012 [facility] [address] [id number] [place] [address]- 8678 Aug, [facility] [place] [facility] [address] [facility] [id number] [place] [address]- 8751 02 Aug, 2012 [facility] [address] [id number] [place] [address]- 5574 Jul, [facility] [place] [facility] [address] [facility] [id number] [place] [address]- 1676 Jul, [facility] [place] [facility] [address] [facility] [id number] [place] [address]- 2142 Jun, [facility] [place] [facility] [address] [facility] [id number] [place] [address]- 5843 Jun, [facility] [place] [facility] [address] [facility] [id number] [place] [address]- 3566 Jun, [facility] [place] [facility] [address] [facility] [id number] [place] [address]- 5927 08 Jun, 2012 [facility] [place] [facility] [address] [id number] [place] [address]- 8872 07 Jun, 2012 [facility] [place] [facility] [address] [facility] [id number] [place] [address]- 0934 07 Jun, 2012 [facility] [place] [facility] [address] [facility] [id number] [place] [address]- 3108 Jun, [facility] [address] [facility] [id number] [address]- 9972 May, [facility] [address] [facility] [id number] [address]- 0756 May, [facility] [address] [facility] [id number] [address]- 4612 May, [facility] [address] [facility] [id number] [address]- 7136 May, [facility] [address] [facility] [id number] [address]- 4887 Mar, [facility] [address] [facility] [id number] [address]- 5836 Mar, [facility] [id number] [address]- 1266 Jan, IMMUNIZATIONS No Known Immunizations SOCIAL HISTORY Never Assessed REASON FOR VISIT Controlled Med Refill 01/30 PLAN OF CARE VITAL SIGNS MEDICATIONS Medication Instructions Dosage Frequency Start Date End Date Duration Status Lyrica 150 MG Orally Twice a day 1 capsule 12h 30 days Active Oxycodone-Acetaminophen 10-325 MG Orally 4 times a day 1 tablet as needed 6h 07 Jan, 2018 28 days Active Marinol 5 mg [...] vomitting-[facility] 03/05/17 Hospitalization History hospital stay at [facility] for stomach issues 2016
--- OUTSIDE RECORDS SUMMARY | 2018-05-04 15:43 | XMS REPORT ---
Author Author DELFIN RACH Organization [facility] Address [address] [place] [address] Care Team Providers Care Cadastral Surveyor Name Role Phone DELFIN RACH Unavailable PROBLEMS Type Condition ICD9-CM Code GFQ18-SD Code Onset Dates Condition Status SNOMED Code Problem Asthma exacerbation J45.901 Active 450013765 Problem Diabetic polyneuropathy associated with type 2 diabetes mellitus E11.42 Active 96893261 Problem Reactive depression F32.9 Active 59401041 Problem Other chronic pain G89.29 Active 13372035 Problem Neuropathy G62.9 Active 792019631 Problem Irritable bowel syndrome with constipation K58.1 Active 639450615 Problem Back pain M54.9 Active 516474404 Problem Low TSH level R94.6 Active 355838168 Problem Migraine without aura and without status migrainosus, not intractable G43.009 Active 912606481 Problem PTSD (post-traumatic stress disorder) F43.10 Active 59803053 Problem Tobacco dependency F17.200 Active 11883614 Problem Annual physical exam Z00.00 Active 644989480 Problem Mixed hyperlipidemia E78.2 Active 514540476 Problem Type 2 diabetes mellitus with diabetic autonomic (poly)neuropathy E11.43 Active 39727290 Problem Diabetes E11.9 Active 43245041 Problem Gastroparesis K31.84 Active 318586722 Problem Anorexia R63.0 Active 03102472 Problem Weight loss R63.4 Active 256113190 Problem 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 Active 860551036 Problem History of colon polyps Z86.010 Active 537331703 Problem Uncomplicated asthma, unspecified asthma severity J45.909 Active 535910878 Problem Primary insomnia F51.01 Active 6313057 ALLERGIES No Information ENCOUNTERS Encounter Location Date Diagnosis [facility] [address] [facility] [id number] [address] Apr, [facility] [id number] [place] [address] 95952- 0565 Feb, [facility] [address] 17924- 7070 Feb, [facility] [id number] [place] [address] 13251- 5300 Feb, [facility] [address] 23020- 8792 Feb, Right lower quadrant abdominal pain R10.31 ; Pain in left shoulder M25.512 ; Other chronic pain G89.29 and Encounter for immunization Z23 [facility] [address] 15042- 3958 Feb, [facility] [address] 85809- 4460 25 Jan, 2018 Dysfunction of left eustachian tube H69.82 [facility] [address] 00501- 3392 24 Jan, 2018 [facility] [id number] [place] [address] 52122- 5867 Jan, [facility] [id number] [place] [address] 95539- 0471 Jan, [facility] [id number] [place] [address] 97298- 6171 Jan, [facility] [id number] [place] [address] 40338- 0106 18 Jan, 2018 [facility] [id number] [place] [address] 57350- 3927 Jan, Left upper arm pain M79.622 [facility] [id number] [place] [address] 66238- 8626 Jan, PTSD (post-traumatic stress disorder) F43.10 and Tobacco dependency F17.200 [facility] [address] 60662- 1050 Jan, Back pain M54.9 ; Type 2 diabetes mellitus with diabetic autonomic (poly)neuropathy E11.43 ; Neuropathy G62.9 ; Irritable bowel syndrome with constipation K58.1 ; Sprain of other part of left shoulder region, initial encounter S43.492A and Dysfunction of left eustachian tube H69.82 [facility] [address] 25361- 9267 Jan, [facility] [address] 256328- 2653 Jan, Neuropathy G62.9 ; LLQ pain R10.32 and Other dorsalgia M54.89 [place] [address] 39168- 7403 Jan, [place] [address] 13927- 4603 Jan, [facility] [address] 66261- 6048 Dec, Right upper quadrant abdominal pain R10.11 [place] [address] 57247- 1629 Dec, PTSD (post-traumatic stress disorder) F43.10 [facility] [address] 30765- 1068 Dec, LLQ pain R10.32 [place] [address] 30651- 3864 Dec, Other dorsalgia M54.89 [facility] [address] 89619- 5268 Dec, Neuropathy G62.9 [facility] [address] 96074- 8910 Dec, [facility] [address] 00850- 3890 Nov, Irritable bowel syndrome with constipation K58.1 ; Uncomplicated asthma, unspecified asthma severity J45.909 and Type 2 diabetes mellitus with diabetic autonomic (poly)neuropathy E11.43 [facility] [address] [id number] Nov, Dental examination Z01.20 [place] [address] 13823- 3376 Nov, Other dorsalgia M54.89 [place] [address] 22015- 9672 Nov, LLQ pain R10.32 ; Low TSH level R94.6 and Gastroparesis K31.84 [place] [address] 36245- 5159 Nov, Anorexia R63.0 [place] [address] 45990- 0978 Nov, Asthma exacerbation J45.901 [place] [address] 13534- 6508 Oct, PTSD (post-traumatic stress disorder) F43.10 [place] [address] 98948- 8074 Oct, [place] [address] 94288- 6742 Oct, PTSD (post-traumatic stress disorder) F43.10 and Tobacco dependency F17.200 [place] [address] 13587- 8133 Oct, [place] [address] 60772- 6485 Oct, Other dorsalgia M54.89 [place] [address] 89960- 7180 04 Oct, 2017 Anorexia R63.0 [place] [address] 45586- 2758 September, PTSD (post-traumatic stress disorder) F43.10 [place] [address] 89903- 2664 September, Low TSH level R94.6 [place] [address] 89616- 6302 September, Other dorsalgia M54.89 [place] [address] [place] [id number]- 1606 September, Annual physical exam Z00.00 and Migraine without aura and without status migrainosus, not intractable G43.009 [place] [address] [place] 406144- 2032 September, Abnormal TSH R94.6 and Dysfunction of left eustachian tube H69.82 [place] [address] [place] 406142 4795 Aug, [place] [address] [place] [id number]- 5777 Aug, Anorexia R63.0 [facility] [address] [id number] Aug, Dental examination Z01.20 and Xerostomia K11.7 [place] [address] 15061- 0111 Aug, Neuropathy G62.9 [place] [address] 46480- 1415 Aug, [place] [address] 27949- 3485 Aug, Other dorsalgia M54.89 [place] [address] [place] 406141- 0561 Aug, Type 2 diabetes mellitus with diabetic autonomic (poly) neuropathy E11.43 ; Diabetic polyneuropathy associated with type 2 diabetes mellitus E11.42 ; Bronchitis J40 ; Gastroparesis K31.84 and Reactive depression F32.9 [facility] [id number] [place] [address] 87267 2546 Aug, PTSD (post-traumatic stress disorder) F43.10 [facility] [id number] [place] [address] 63717 2546 Aug, Other dorsalgia M54.89 and Anorexia R63.0 [facility] [address] 90461 2546 Jul, [facility] [id number] [place] [address] 46386 2546 Jul, Other dorsalgia M54.89 [facility] [id number] [place] [address] 92263 2546 Jul, [facility] [id number] [place] [address] 17049 2546 Jul, [facility] [id number] [place] [address] 15695 2546 Jul, PTSD (post-traumatic stress disorder) F43.10 [facility] [id number] [place] [address] 31748 2546 Jul, [facility] [id number] [place] [address] 84380 2546 Jul, [facility] [id number] [place] [address] 26410 2546 Jul, [facility] [id number] [place] [address] 46673 2546 Jul, Anorexia R63.0 [facility] [id number] [place] [address] 62297 2546 Jun, [facility] [id number] [place] [address] 37243 2546 Jun, Vaginal discharge N89.8 ; Visit for gynecologic examination Z01.419 and Pelvic pressure in female R10.2 [facility] [address] 27711- 6682 Jun, [facility] [address] 37881- 0394 Jun, Other dorsalgia M54.89 [facility] [address] 53816- 7090 Jun, [facility] [address] 77206- 8003 Jun, [facility] [address] 33380- 9958 Jun, [facility] [address] 03460- 5050 May, Back pain M54.9 [facility] [address] 23158- 3583 May, Anorexia R63.0 [facility] [address] 52368- 0571 May, Other dorsalgia M54.89 [facility] [address] 31527- 9255 May, [facility] [address] 55462- 0968 May, Bronchitis J40 [facility] [address] 14661- 8880 May, Type 2 diabetes mellitus with diabetic autonomic (poly) neuropathy E11.43 ; intermediate current use of insulin Z79.4 ; Back pain M54.9 and Neuropathy G62.9 [facility] [address] 18979- 8325 May, Left breast mass N63.20 [facility] [address] 47555- 4210 May, [facility] [address] 69573- 6437 Apr, Other dorsalgia M54.89 [facility] [address] 74140- 2136 Apr, Anorexia R63.0 [facility] [address] 81707 2546 Apr, Anorexia R63.0 [facility] [address] 86246 254 Apr, Mass of left breast N63.20 [facility] [address] 78060 2546 Apr, [facility] [address] 14391- 8383 Apr, [facility] [address] 62726- 1098 Apr, Diarrhea of presumed infectious origin A09 [facility] [address] 72043 2544 11 Apr, 2017 Encounter for immunization Z23 [facility] [address] 98843- 5331 05 Apr, 2017 [facility] [address] 97829- 7015 Mar, Other dorsalgia M54.89 [facility] [id number] [place] [address] 39956 2546 Mar, [facility] [address] 34739 2542 Mar, [facility] [address] 54369 2546 Mar, Anorexia R63.0 [facility] [address] 68399 2543 Mar, [facility] [address] 19609- 3980 Mar, Other dorsalgia M54.89 [facility] [id number] [place] [address] 00531- 2684 Mar, [facility] [id number] [place] [address] 90283- 0631 Mar, Encounter for immunization Z23 [facility] [address] 04733- 9237 Feb, Anorexia R63.0 [facility] [address] 94562- 9170 Feb, Diabetes E11.9 [facility] [address] 31564- 4814 Feb, Back pain M54.9 and Diabetes E11.9 [facility] [address] 87559- 0976 Feb, Diabetes E11.9 [facility] [id number] [place] [address] 29313- 3450 Feb, Neuropathy G62.9 [facility] [address] 73501- 4114 Feb, Encounter for immunization Z23 ; Epigastric pain R10.13 ; Weight loss, abnormal R63.4 and Neuropathy G62.9 [facility] [place] [id number] [place] [address] [id number] Feb, [facility] [id number] [place] [address] 22894- 1122 Feb, [facility] [id number] [place] [address] 59316- 1482 Feb, Intractable vomiting with nausea, unspecified vomiting type R11.2 [facility] [id number] [place] [address] 16262 -6320 Feb, Chronic nausea R11.0 [facility] [address] [place] [address]- 7731 Feb, Other dorsalgia M54.89 [facility] [address] 66766- 3066 Jan, [facility] [address] 88610 2546 Jan, [facility] [address] 40382- 4636 Jan, [facility] [address] 37815 2546 Jan, [facility] [address] 86503- 7092 Jan, Asthma exacerbation J45.901 ; Bronchitis J40 and Neuropathy G62.9 [facility] [address] 64643- 6077 Jan, Anorexia R63.0 [facility] [address] 31354 2547 Jan, Other dorsalgia M54.89 [facility] [address] 18628- 0281 Dec, [facility] [id number] [place] [address] 21358- 2821 Dec, [facility] [id number] [place] [address] 75906- 2166 15 Dec, 2016 Anorexia R63.0 [facility] [id number] [place] [address] 05395 2541 14 Dec, 2016 Primary insomnia F51.01 [facility] [address] 10944 2546 Dec, Other dorsalgia M54.89 [facility] [id number] [place] [address] 35767 2546 Dec, [facility] [address] [address] [place] [address]- 0051 Nov, [facility] [id number] [place] [address] 18694- 4644 Nov, [facility] [id number] [place] [address] 47766- 6271 Nov, [facility] [id number] [place] [address] 71089- 5444 Nov, History of colon polyps Z86.010 [facility] [id number] [place] [address] 02875- 3371 Nov, Weight loss R63.4 ; Nausea and vomiting, intractability of vomiting not specified, unspecified vomiting type R11.2 and Abnormal LFTs R79.89 [facility] [id number] [place] [address] 17922- 7353 Nov, [facility] [id number] [place] [address] 92531- 6550 Nov, Neuropathy G62.9 and Pain in right knee M25.561 [facility] [id number] [place] [address] 91103- 3064 Nov, Back pain M54.9 [facility] [id number] [place] [address] 05423- 4256 Nov, [facility] [id number] [place] [address] 32710- 6137 Nov, Bronchitis J40 [facility] [address] [address]- 9909 Nov, Weight loss R63.4 [facility] [id number] [place] [address] 70187- 2048 Oct, Back pain M54.9 [facility] [id number] [place] [address] 34672- 9914 Oct, [facility] [id number] [place] [address] 84455- 6769 14 Oct, 2016 Back pain M54.9 [facility] [id number] [place] [address] 29440- 3492 Oct, Type 2 diabetes mellitus without complications E11.9 and Bronchitis J40 [facility] [id number] [place] [address] 05536- 7438 Oct, [facility] [address] 14920- 0669 Oct, [facility] [id number] [place] [address] 80775- 9072 September, Gastroparesis K31.84 ; Type 2 diabetes mellitus with diabetic autonomic (poly)neuropathy E11.43 and Neuropathy G62.9 [facility] [id number] [place] [address] 76589- 0364 September, Other dorsalgia M54.89 [facility] [id number] [place] [address] 43479- 6188 September, [facility] [id number] [place] [address] 79170- 6723 September, [facility] [id number] [place] [address] 90711- 3325 Aug, Gastroparesis K31.84 and Radicular leg pain M54.10 [facility] [id number] [place] [address] 17228- 4880 Aug, Anorexia R63.0 [facility] [id number] [place] [address] 74320- 3151 Aug, Bronchitis J40 [facility] [id number] [place] [address] 41589- 1480 Aug, Back pain M54.9 [facility] [id number] [place] [address] 28117- 2996 Aug, Routine gynecological examination Z01.419 ; Routine screening for STI (sexually transmitted infection) Z11.3 and Yeast infection of the vagina B37.3 [facility] [id number] [place] [address] 41077- 9840 Jul, Other dorsalgia M54.89 [facility] [id number] [place] [address] 79247- 2489 Jul, Diabetes E11.9 and Gastroparesis K31.84 [facility] [address] 66696- 0109 Jun, [facility] [address] 87904- 3838 Jun, Back pain M54.9 [facility] [address] 55626- 8515 14 Jun, 2016 Neuropathy G62.9 [facility] [address] [id number] 02 Jun, 2016 Encounter for dental examination Z01.20 [facility] [id number] [place] [address] 74254- 6833 Jun, Gastroparesis 536.3 and Anorexia R63.0 [facility] [id number] [place] [address] 22106- 9968 May, Other dorsalgia M54.89 [facility] [id number] [place] [address] 50807- 8710 May, Periumbilical abdominal pain R10.33 ; Weight loss R63.4 and Gastroparesis K31.84 [facility] [id number] [place] [address] 63252- 9651 May, Back pain M54.9 [facility] [id number] [place] [address] 94357- 8719 Apr, Anorexia R63.0 [facility] [id number] [place] [address] 10847- 0404 22 Dec, 2016 Anorexia R63.0 [facility] [id number] [place] [address] 38320- 8532 Apr, Back pain M54.9 [facility] [address] 34449- 1246 Apr, Back pain M54.9 [facility] [address] 40037- 2636 Apr, [facility] [address] 90117- 0499 Apr, Bronchitis J40 and Neuropathy G62.9 [facility] [address] 62784- 8490 Apr, Neuropathy G62.9 [facility] [address] 98599- 8366 Apr, [facility] [address] 55786- 4000 Apr, Back pain M54.9 [facility] [id number] [place] [address] 31175- 0259 Mar, Type 2 diabetes mellitus with diabetic autonomic (poly) neuropathy E11.43 [facility] [id number] [place] [address] 88841- 8439 Mar, Type 2 diabetes mellitus without complications E11.9 [facility] [address] 70990- 3695 Mar, Neuropathy G62.9 [facility] [id number] [place] [address] 36794- 0209 Mar, [facility] [address] 17266- 5938 Mar, Breast cancer screening Z12.39 [facility] [id number] [place] [address] 04513- 7294 Mar, Other dorsalgia M54.89 [facility] [id number] [place] [address] 30083- 3881 Feb, [facility] [address] 13578- 7542 Jan, Neuropathy G62.9 ; Type 2 diabetes mellitus with diabetic autonomic (poly)neuropathy E11.43 ; Uncomplicated asthma, unspecified asthma severity J45.909 and Encounter for immunization Z23 [place] [address] 58340- 4127 Jan, [place] [address] 31362- 9690 Jan, [place] [address] 31244- 9766 Dec, [place] [address] 27919- 9558 Dec, [place] [address] 03322- 7202 Nov, [place] [id number] [place] [address] 39753- 7367 Nov, Back pain M54.9 [place] [id number] [place] [address] 93814- 7110 Nov, Neuropathy G62.9 ; Mixed hyperlipidemia E78.2 ; Type 2 diabetes mellitus with diabetic autonomic (poly)neuropathy E11.43 and 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 [place] [id number] [place] [address] 70789- 5048 Oct, [place] [id number] [place] [address] 40896- 6075 Oct, Other dorsalgia M54.89 [place] [id number] [place] [address] 23177- 4187 September, Primary insomnia F51.01 [place] [address] 50592- 4827 September, [facility] [id number] [place] [address] 45624- 5322 Aug, Other dorsalgia M54.89 [facility] [id number] [place] [address] 75427- 7985 Jul, [facility] [id number] [place] [address] 39900- 3337 Jul, Other dorsalgia M54.89 [facility] [id number] [place] [address] 85510- 2922 Jul, Diabetes E11.9 ; Back pain M54.9 ; Neuropathy G62.9 and Gastroparesis K31.84 [facility] [id number] [place] [address] 20723- 5564 Jun, [facility] [id number] [place] [address] 80717- 6749 Jun, Other dorsalgia M54.89 [facility] [id number] [place] [address] 84465- 3187 May, [facility] [id number] [place] [address] 54619- 5272 May, Radicular leg pain M54.10 and Other dorsalgia M54.89 [facility] [id number] [place] [address] 49599- 9227 Apr, [facility] [id number] [place] [address] 55799- 5098 Mar, [facility] [id number] [place] [address] [id number]- 3130 Mar, [facility] [address] [id number] [place] [address] 00228- 3493 Mar, Radicular leg pain M54.10 [facility] [id number] [place] [address] 32087- 1532 Feb, [facility] [address] [address] 120[address] Feb, [facility] [id number] [place] [address] 53748- 4255 Feb, [facility] [id number] [place] [address] 81999- 254 Jan, [facility] [id number] [place] [address] 57439- 6832 Jan, IBS (irritable bowel syndrome) 564.1 [facility] [id number] [place] [address] 67154- 5457 Jan, [facility] [id number] [place] [address] 97184- 8465 Jan, [facility] [id number] [place] [address] 46153- 8256 Jan, Diabetes mellitus without mention of complication, type II or unspecified type, not stated as uncontrolled 250.00 ; Gastroparesis 536.3 and Hypoacusis 389.9 [facility] [id number] [place] [address] 27491- 4456 Jan, [facility] [id number] [place] [address] 49823- 8173 Jan, [facility] [address], [place] [address] 5448 Dec, [facility] [id number] [place] [address] 30807- 7085 Dec, [facility] [id number] [place] [address] 78648- 3205 Dec, [facility] [id number] [place] [address] 50888- 1603 Dec, Back pain 724.5 and Gastroparesis 536.3 [facility] [id number] [place] [address] 96493- 5583 Nov, [facility] [address] [facility] [id number] [id number] Nov, Dental examination V72.2 [facility] [address] [address] 3726 Nov, [facility] [address] [address] 4168 Nov, [facility] [address] 8129 Nov, Depressive disorder, not elsewhere classified 311 and No condition on [place] II V71.09 [facility] [id number] [place] [address] 90082- 0227 Nov, Diabetes 250.00 and Symptomatic menopausal or female climacteric states 627.2 [facility] [address], [place] [address]- 0521 Oct, [facility] [address] [address]- 4770 Oct, Lumbar strain 847.2 [facility] [address], [place] [address]- 1783 Oct, Gastroparesis 536.3 and Unspecified myalgia and myositis 729.1 [facility] [id number], [place] [address]- 6968 14 Aug, 2014 [facility] [id number] [address] 2149 Aug, [facility] [id number] [address] 1502 Jul, [facility] [address] 5604 Jul, [facility] [id number] [id number] 4298 Jul, [facility] [id number] [place] [address]- 2027 Jul, [facility] [place] [facility] [address] [id number] [place] [address]- 2021 Jul, [facility] [place] [facility] [address] [id number] [place] [address]- 7646 Jun, [facility] [place] [facility] [address] [id number] [place] [address]- 2007 Jun, [facility] [place] [facility] [address] [id number] [place] [address]- 7744 Jun, [facility] [place] [facility] [address] [id number] [place] [address]- 8874 May, [facility] [place] [facility] [address] [id number] [place] [address]- 4001 May, [facility] [place] [facility] [address] [id number] [place] [address]- 3920 Mar, [facility] [place] [facility] [address] [id number] [place] [address]- 8215 Mar, [facility] [place] [facility] [address] [facility] [id number] [place] [address]- 2854 Mar, [facility] [place] [facility] [address] [facility] [id number] [place] [address]- 2186 Mar, [facility] [place] [facility] [address] [id number] [place] [address]- 0991 Mar, [facility] [place] [facility] [address] [id number] [place] [address]- 0591 Mar, [facility] [place] [facility] [address] [id number] [place] [address]- 7383 Feb, [facility] [place] [facility] [address] [id number] [place] [address]- 7793 Feb, [facility] [place] [facility] [address] [facility] [id number] [place] [address]- 1146 Nov, [facility] [address] [id number] [place] [address]- 0114 Nov, [facility] [address] [id number] [place] [address]- 6786 Nov, [facility] [address] [id number] [place] [address]- 0918 Oct, [facility] [place] [facility] [address] [id number] [place] [address]- 7524 September, [facility] [address] [id number] [place] [address]- 4455 Aug, [facility] [place] [facility] [address] [id number] [place] [address]- 5849 Aug, [facility] [address] [id number] [place] [address]- 8932 Aug, [facility] [address] [id number] [place] [address]- 0114 Aug, [facility] [place] [facility] [address] [id number] [place] [address]- 7451 Aug, [facility] [address] [id number] [place] [address]- 8883 Aug, [facility] [place] [facility] [address] [id number] [place] [address]- 4577 Aug, [facility] [place] [facility] [address] [id number] [address]- 2331 Aug, [facility] [place] [facility] [address] [id number] [place] [address]- 7295 Jul, [facility] [place] [facility] [address] [id number] [place] [address]- 8478 Jul, [facility] [place] [facility] [address] [id number], [place] [address]- 4329 Jun, [facility] [place] [facility] [address] [id number], [place] [address]- 0721 Jun, [facility] [address], [place] [address]- 1668 09 Jun, 2012 [facility] [address], [place] [address]- 0798 08 Jun, 2012 [facility] [address], [place] [address]- 5628 Jun, [facility] [address], [place] [address]- 3425 Jun, [facility] [address], [place] [address]- 5600 Jun, [facility] [address], [place] [address]- 0634 May, [facility] [address], [place] [address]- 8012 May, [facility] [address], [place] [address]- 4596 May, [facility] [address], [place] [address]- 3069 May, [facility] [address], [place] [address]- 6353 Mar, [facility] [address], [place] [address]- 1524 Mar, [facility] [id number], [place] [address]- 2380 24 Jan, 2012 IMMUNIZATIONS No Known Immunizations [...]
--- OUTSIDE RECORDS SUMMARY | 2018-05-04 15:44 | XMS REPORT ---
Author Author HORACE HIGGINS [facility] Address [address] [place] [address] Care Team Providers Care Supervisor [employer] Name Role Phone HORACE HIGGINS Unavailable PROBLEMS Type Condition ICD9-CM Code [id number] Code Onset Dates Condition Status SNOMED Code Problem Primary insomnia F51.01 Active 2725359 Problem Reactive depression F32.9 Active 96276467 Problem Asthma exacerbation J45.901 Active 670104504 Problem Irritable bowel syndrome with constipation K58.1 Active 119682024 Problem Back pain M54.9 Active 187410332 Problem Tobacco dependency F17.200 Active 01680723 Problem Low TSH level R94.6 Active 700131568 Problem PTSD (post-traumatic stress disorder) F43.10 Active 57497882 Problem Diabetic polyneuropathy associated with type 2 diabetes mellitus E11.42 Active 48909101 Problem Annual physical exam Z00.00 Active 222899871 Problem Migraine without aura and without status migrainosus, not intractable G43.009 Active 448982369 Problem Gastroparesis K31.84 Active 810517405 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 Active 563087116 Problem Neuropathy G62.9 Active 847409169 Problem Diabetes E11.9 Active 03983713 Problem Uncomplicated asthma, unspecified asthma severity J45.909 Active 812788490 Problem Anorexia R63.0 Active 15352321 Problem Mixed hyperlipidemia E78.2 Active 036946863 Problem Weight loss R63.4 Active 310842324 Problem Type 2 diabetes mellitus with diabetic autonomic (poly)neuropathy E11.43 Active 22989060 Problem History of colon polyps Z86.010 Active 086208254 ALLERGIES No Information ENCOUNTERS Encounter Location Date Diagnosis [facility] [address] [facility] [id number] [address] Apr, [facility] [address] [id number] [address] Feb, [facility] [address] [place] [address] 13197- 8116 25 Jan, 2018 Dysfunction of left eustachian tube H69.82 [facility] [id number] [place] [address] 84765- 3636 24 Jan, 2018 [facility] [id number] [place] [address] 39666- 6646 21 Jan, 2018 [facility] [id number] [place] [address] 04475- 5633 Jan, [facility] [id number] [place] [address] 48973- 7823 19 Jan, 2018 [facility] [id number] [place] [address] 38972- 2789 18 Jan, 2018 Left upper arm pain M79.622 [facility] [id number] [place] [address] 82422- 6201 18 Jan, 2018 [facility] [id number] [place] [address] 44673- 1422 18 Jan, 2018 PTSD (post-traumatic stress disorder) F43.10 and Tobacco dependency F17.200 [facility] [id number] [place] [address] 62594- 7899 10 Jan, 2018 Back pain M54.9 ; Type 2 diabetes mellitus with diabetic autonomic (poly)neuropathy E11.43 ; Neuropathy G62.9 ; Irritable bowel syndrome with constipation K58.1 ; Sprain of other part of left shoulder region, initial encounter S43.492A and Dysfunction of left eustachian tube H69.82 [facility] [id number] [place] [address] 91362- 7735 06 Jan, 2018 [facility] [id number] [place] [address] 63512- 2826 05 Jan, 2018 Neuropathy G62.9 ; LLQ pain R10.32 and Other dorsalgia M54.89 [facility] [id number] [place] [address] 62421- 7143 Jan, [facility] [id number] [place] [address] 93109- 1585 Jan, [facility] [id number] [place] [address] 42281- 5769 Dec, Right upper quadrant abdominal pain R10.11 [facility] [address] 20830- 0476 Dec, PTSD (post-traumatic stress disorder) F43.10 [facility] [id number] [place] [address] 70290- 8992 Dec, LLQ pain R10.32 [facility] [id number] [place] [address] 70691- 1795 Dec, Other dorsalgia M54.89 [facility] [address] 66046- 5201 Dec, Neuropathy G62.9 [facility] [address] 87081- 6183 Dec, [facility] [address] 56742- 5383 Nov, Irritable bowel syndrome with constipation K58.1 ; Uncomplicated asthma, unspecified asthma severity J45.909 and Type 2 diabetes mellitus with diabetic autonomic (poly)neuropathy E11.43 [facility] [id number] [place] [address] [id number] Nov, Dental examination Z01.20 [facility] [id number] [place] [address] 64727- 3019 Nov, Other dorsalgia M54.89 [facility] [address] 31549- 8845 Nov, LLQ pain R10.32 ; Low TSH level R94.6 and Gastroparesis K31.84 [place] [address] [place] [address]- 7065 09 Nov, 2017 Anorexia R63.0 [facility] [id number] [place] [address] 10944- 4616 06 Nov, 2017 Asthma exacerbation J45.901 [facility] [id number] [place] [address] 58602 2546 27 Oct, 2017 PTSD (post-traumatic stress disorder) F43.10 [facility] [address] 81762- 1196 Oct, [facility] [address] 18314- 6104 Oct, PTSD (post-traumatic stress disorder) F43.10 and Tobacco dependency F17.200 [place] [address] 61046- 9472 Oct, [facility] [address] 17189- 3495 Oct, Other dorsalgia M54.89 [facility] [id number] [place] [address] 88112- 9568 Oct, Anorexia R63.0 [facility] [id number] [place] [address] 37562- 9725 September, PTSD (post-traumatic stress disorder) F43.10 [facility] [id number] [place] [address] 23144- 6307 September, Low TSH level R94.6 [facility] [id number] [place] [address] 49257- 2131 September, Other dorsalgia M54.89 [facility] [id number] [place] [address] 54759- 9976 September, Annual physical exam Z00.00 and Migraine without aura and without status migrainosus, not intractable G43.009 [place] [address] 88306- 8317 September, Abnormal TSH R94.6 and Dysfunction of left eustachian tube H69.82 [facility] [address] 65796- 3964 Aug, [facility] [address] 63897- 9640 Aug, Anorexia R63.0 [facility] [address] [id number] Aug, Dental examination Z01.20 and Xerostomia K11.7 [facility] [address] 86912- 8690 Aug, Neuropathy G62.9 [facility] [address] 65645- 1672 Aug, [place] [address] 94852- 6171 Aug, Other dorsalgia M54.89 [place] [address] 44298- 7266 Aug, Type 2 diabetes mellitus with diabetic autonomic (poly) neuropathy E11.43 ; Diabetic polyneuropathy associated with type 2 diabetes mellitus E11.42 ; Bronchitis J40 ; Gastroparesis K31.84 and Reactive depression F32.9 [place] [address] 45522- 3100 Aug, PTSD (post-traumatic stress disorder) F43.10 [facility] [id number] [place] [address] 68297- 2120 Aug, Other dorsalgia M54.89 and Anorexia R63.0 [facility] [address] 84499- 4558 Jul, [facility] [address] 42156- 1161 Jul, Other dorsalgia M54.89 [facility] [address] [place] [address] 9914 Jul, [facility] [id number] [place] [address] 72752- 9842 Jul, [facility] [id number] [place] [address] 21082- 3994 Jul, PTSD (post-traumatic stress disorder) F43.10 [facility] [id number] [place] [address] 71895- 4590 Jul, [facility] [id number] [place] [address] 17803- 2562 Jul, [facility] [id number] [place] [address] 54772- 2947 Jul, [facility] [id number] [place] [address] 70115- 5631 Jul, Anorexia R63.0 [facility] [id number] [place] [address] 44076- 8475 Jun, [facility] [id number] [place] [address] 20544- 5334 Jun, Vaginal discharge N89.8 ; Visit for gynecologic examination Z01.419 and Pelvic pressure in female R10.2 [facility] [id number] [place] [address] 46505- 0677 Jun, [facility] [id number] [place] [address] 97592- 3277 Jun, Other dorsalgia M54.89 [facility] [id number] [place] [address] 86676- 1536 16 Jun, 2017 [facility] [id number] [place] [address] 35312- 6336 07 Jun, 2017 [facility] [id number] [place] [address] 21990- 0106 Jun, [facility] [id number] [place] [address] 93746- 0994 May, Back pain M54.9 [facility] [address] 62795- 2436 May, Anorexia R63.0 [facility] [address] 08384- 9133 May, Other dorsalgia M54.89 [facility] [address] 62017- 8833 May, [facility] [address] 74543- 8772 May, Bronchitis J40 [facility] [address] 86211- 4653 May, Type 2 diabetes mellitus with diabetic autonomic (poly) neuropathy E11.43 ; assisted current use of insulin Z79.4 ; Back pain M54.9 and Neuropathy G62.9 [facility] [id number] [place] [address] 65946- 1587 May, Left breast mass N63.20 [facility] [address] 42179- 1176 May, [facility] [address] 16487- 8945 Apr, Other dorsalgia M54.89 [facility] [id number] [place] [address] 99154- 3246 Apr, Anorexia R63.0 [facility] [address] 21495- 8079 Apr, Anorexia R63.0 [facility] [address] 57176- 4820 Apr, Mass of left breast N63.20 [facility] [id number] [place] [address] 74464- 0454 Apr, [facility] [id number] [place] [address] 69351- 3104 Apr, [facility] [id number] [place] [address] 08483- 3780 Apr, Diarrhea of presumed infectious origin A09 [facility] [id number] [place] [address] 69479- 0947 Apr, Encounter for immunization Z23 [facility] [address] 57916- 4318 Apr, [facility] [id number] [place] [address] 16754- 6421 Mar, Other dorsalgia M54.89 [facility] [id number] [place] [address] 74265- 9316 Mar, [facility] [id number] [place] [address] 92872- 3656 Mar, [facility] [id number] [place] [address] 68008- 5525 Mar, Anorexia R63.0 [facility] [id number] [place] [address] 94740- 5634 Mar, [facility] [id number] [place] [address] 18691 2544 Mar, Other dorsalgia M54.89 [facility] [id number] [place] [address] 72583- 0460 Mar, [facility] [id number] [place] [address] 00568 2540 Mar, Encounter for immunization Z23 [facility] [id number] [place] [address] 74811- 8826 Feb, Anorexia R63.0 [facility] [id number] [place] [address] 29635 2546 Feb, Diabetes E11.9 [facility] [id number] [place] [address] 13992- 2991 Feb, Back pain M54.9 and Diabetes E11.9 [facility] [address] 28705- 5574 Feb, Diabetes E11.9 [facility] [address] 96746- 3886 Feb, Neuropathy G62.9 [facility] [address] 41052- 1347 Feb, Encounter for immunization Z23 ; Epigastric pain R10.13 ; Weight loss, abnormal R63.4 and Neuropathy G62.9 [facility] [address] [id number] Feb, [facility] [address] 10332- 2494 Feb, [facility] [address] 92148- 3013 Feb, Intractable vomiting with nausea, unspecified vomiting type R11.2 [facility] [address] 70624 -6020 Feb, Chronic nausea R11.0 [facility] [address] 19158- 1954 Feb, Other dorsalgia M54.89 [facility] [id number] [place] [address] 15042- 5340 Jan, [facility] [address] 98792- 2593 Jan, [facility] [address] 22793- 1746 Jan, [facility] [address] 19272- 9645 Jan, [facility] [address] 84749- 7136 08 Jan, 2017 Asthma exacerbation J45.901 ; Bronchitis J40 and Neuropathy G62.9 [facility] [address] 39108- 5766 06 Jan, 2017 Anorexia R63.0 [facility] [id number] [place] [address] 29730- 4859 Jan, Other dorsalgia M54.89 [facility] [address] 71083- 0148 Dec, [facility] [address] 45730- 0621 Dec, [facility] [address] 12474- 3751 Dec, Anorexia R63.0 [facility] [address] 77966- 8184 Dec, Primary insomnia F51.01 [facility] [address] 19662- 3736 Dec, Other dorsalgia M54.89 [facility] [address] 15559- 7949 Dec, [facility] [id number] [place] [address] 29737- 4938 Nov, [facility] [id number] [place] [address] 23006- 8373 Nov, [facility] [id number] [place] [address] 15806- 9390 Nov, [facility] [address] 59329- 2345 Nov, History of colon polyps Z86.010 [facility] [id number] [place] [address] 48276- 5721 Nov, Weight loss R63.4 ; Nausea and vomiting, intractability of vomiting not specified, unspecified vomiting type R11.2 and Abnormal LFTs R79.89 [facility] [id number] [place] [address] 98178- 9459 18 Nov, 2016 [facility] [address] 50426- 1502 Nov, Neuropathy G62.9 and Pain in right knee M25.561 [facility] [address] 95124- 6294 Nov, Back pain M54.9 [facility] [address] 82035- 7805 Nov, [facility] [address] 15883- 8115 Nov, Bronchitis J40 [facility] [address] 26978- 1399 Nov, Weight loss R63.4 [facility] [address] 65609- 3121 Oct, Back pain M54.9 [facility] [address] 15283- 2126 Oct, [facility] [id number] [place] [address] 11030- 7266 Oct, Back pain M54.9 [facility] [address] 46478- 0795 Oct, Type 2 diabetes mellitus without complications E11.9 and Bronchitis J40 [facility] [id number] [place] [address] 73755- 3849 Oct, [facility] [address] 23978- 8202 Oct, [facility] [id number] [place] [address] 37999- 3864 September, Gastroparesis K31.84 ; Type 2 diabetes mellitus with diabetic autonomic (poly)neuropathy E11.43 and Neuropathy G62.9 [facility] [id number] [place] [address] 58623- 9363 September, Other dorsalgia M54.89 [facility] [id number] [place] [address] 53863- 9677 September, [facility] [id number] [place] [address] 54178- 8642 September, [facility] [address] 24733- 9225 Aug, Gastroparesis K31.84 and Radicular leg pain M54.10 [facility] [address] 59877- 9322 Aug, Anorexia R63.0 [facility] [facility] [address] 69827- 0367 Aug, Bronchitis J40 [facility] [id number] [place] [address] 66978- 5757 Aug, Back pain M54.9 [facility] [id number] [place] [address] 86026- 3407 Aug, Routine gynecological examination Z01.419 ; Routine screening for STI (sexually transmitted infection) Z11.3 and Yeast infection of the vagina B37.3 [facility] [id number] [place] [address] 40531- 3731 Jul, Other dorsalgia M54.89 [facility] [id number] [place] [address] 44670- 8344 Jul, Diabetes E11.9 and Gastroparesis K31.84 [facility] [id number] [place] [address] 41284- 6393 Jun, [facility] [id number] [place] [address] 50998- 2724 Jun, Back pain M54.9 [facility] [id number] [place] [address] 39583- 2840 14 Jun, 2016 Neuropathy G62.9 [facility] [address] [id number] Jun, 2016 Encounter for dental examination Z01.20 [facility] [address] 94522- 3806 01 Jun, 2016 Gastroparesis 536.3 and Anorexia R63.0 [facility] [address] 81118 2549 27 May, 2016 Other dorsalgia M54.89 [facility] [address] 71874- 3669 10 May, 2016 Periumbilical abdominal pain R10.33 ; Weight loss R63.4 and Gastroparesis K31.84 [facility] [address] 51679- 7007 May, Back pain M54.9 [facility] [address] 89500 2542 Apr, Anorexia R63.0 [facility] [address] 36203 2543 Apr, Anorexia R63.0 [facility] [id number] [place] [address] 41029 2543 16 Apr, 2016 Back pain M54.9 [facility] [address] 53273 2546 15 Apr, 2016 Back pain M54.9 [facility] [address] 80150 2546 Apr, [facility] [address] 52399 2546 Apr, Bronchitis J40 and Neuropathy G62.9 [facility] [address] 64481- 4983 Apr, Neuropathy G62.9 [facility] [id number] [place] [address] 39840- 5706 Apr, [facility] [id number] [place] [address] 17847- 6367 Apr, Back pain M54.9 [facility] [id number] [place] [address] 00508- 7945 Mar, Type 2 diabetes mellitus with diabetic autonomic (poly) neuropathy E11.43 [facility] [id number] [place] [address] 34467- 9557 Mar, Type 2 diabetes mellitus without complications E11.9 [facility] [id number] [place] [address] 90413- 5964 Mar, Neuropathy G62.9 [facility] [id number] [place] [address] 48569- 1500 Mar, [facility] [id number] [place] [address] 56966- 2800 Mar, Breast cancer screening Z12.39 [place] [address] 44047- 5846 Mar, Other dorsalgia M54.89 [facility] [id number] [place] [address] 31333- 7312 Feb, [facility] [id number] [place] [address] 58458- 9265 Jan, Neuropathy G62.9 ; Type 2 diabetes mellitus with diabetic autonomic (poly)neuropathy E11.43 ; Uncomplicated asthma, unspecified asthma severity J45.909 and Encounter for immunization Z23 [facility] [id number] [place] [address] 97004- 8910 Jan, [facility] [id number] [place] [address] 37760- 9961 Jan, [facility] [address] [place] [address]- 8028 Dec, [facility] [id number] [place] [address] 60386- 1910 Dec, [facility] [id number] [place] [address] 19711- 9000 Nov, [facility] [id number] [place] [address] 30856- 1685 Nov, Back pain M54.9 [facility] [id number] [place] [address] 68158- 3623 Nov, Neuropathy G62.9 ; Mixed hyperlipidemia E78.2 ; Type 2 diabetes mellitus with diabetic autonomic (poly)neuropathy E11.43 and assisted current use of insulin Z79.4 [facility] [id number] [place] [address] 10053- 0458 Oct, [facility] [address] 69698- 5152 Oct, Other dorsalgia M54.89 [facility] [id number] [place] [address] 09196- 0113 September, Primary insomnia F51.01 [facility] [id number] [place] [address] 30404- 5365 September, [facility] [id number] [place] [address] 78002- 5616 Aug, Other dorsalgia M54.89 [facility] [id number] [place] [address] 53736- 8846 Jul, [facility] [id number] [place] [address] [phone]- [phone] Jul, Other dorsalgia M54.89 [facility] [id number] [place] [address] 60918- [phone] Jul, Diabetes E11.9 ; Back pain M54.9 ; Neuropathy G62.9 and Gastroparesis K31.84 [address] [id number] [address] Jun, [facility] [id number] [place] [address] [id number] Jun, Other dorsalgia M54.89 [facility] [id number] [place] [address] [id number] 2546 May, [facility] [id number] [place] [address] [id number] 2546 May, Radicular leg pain M54.10 and Other dorsalgia M54.89 [facility] [id number] [place] [address] [phone]- [phone] Apr, [facility] [id number] [place] [address] [id number]- [phone] Mar, [facility] [id number] [place] [address] [phone] Mar, [facility] [id number] [place] [address] [id number]- [phone] Mar, Radicular leg pain M54.10 [facility] [id number] [place] [place] [address]115- 9276 Feb, [facility] [address], [place] [address] 8[address] Feb, [facility] [id number] [place] [address]23 2549 Feb, [facility] [address], [place] [address] Jan, [facility] [id number] [place] [address] 80209- 9495 Jan, IBS (irritable bowel syndrome) 564.1 [facility] [address], [place] [address] Jan, [facility] [id number] [place] [address] 55145- 7867 Jan, [facility] [id number] [place] [address] 95450- 2404 Jan, Diabetes mellitus without mention of complication, type II or unspecified type, not stated as uncontrolled 250.00 ; Gastroparesis 536.3 and Hypoacusis 389.9 [facility] [id number] [place] [address] 94571- 9414 Jan, [facility] [id number] [place] [address] 05268- 9263 Jan, [facility] [id number] [place] [address] 31020- 4074 Dec, [facility] [id number] [place] [address] 18988- 3137 Dec, [facility] [id number] [place] [address] 91831- 9953 Dec, [facility] [id number] [place] [address] 01251- 2666 Dec, Back pain 724.5 and Gastroparesis 536.3 [facility] [id number] [place] [address] 76031- 9607 Nov, [facility] [id number] [place] [address] [id number] Nov, Dental examination V72.2 [facility] [id number] [place] [address] 12886- 8086 Nov, [facility] [id number] [place] [address] 26926- 5180 Nov, [facility] [id number] [place] [address] 34723- 3290 Nov, Depressive disorder, not elsewhere classified 311 and No condition on Ful[place] II V71.09 [facility] [id number] [place] [address] 45029- 8636 Nov, Diabetes 250.00 and Symptomatic menopausal or female climacteric states 627.2 [facility] [address], [place] [address] 1126 Oct, [facility] [address], [place] [address] 8246 Oct, Lumbar strain 847.2 [facility] [address], [place] [address] 7776 Oct, Gastroparesis 536.3 and Unspecified myalgia and myositis 729.1 [facility] [address], [place] [address] 4366 Aug, [facility] [address], [place] [address] 1866 Aug, [facility] [address], [place] [address] 2491 Jul, [facility] [address], [place] [address]- 2366 Jul, [facility] [address], [place] [address]- 2587 Jul, [facility] [address], [place] [address]- 9116 Jul, [facility] [address], [place] [address]- 8536 Jul, [facility] [id number], [place] [address] 7226 Jun, [facility] [address], [place] [address]- 7416 Jun, [facility] [address], [place] [address]- 2546 Jun, [facility] [address], [place] [address]- 0038 May, [facility] [place] [facility] [address] [id number] [place] [address]- 8269 May, [facility] [place] [facility] [address] [id number] [place] [address]- 3207 Mar, [facility] [place] [facility] [address] [id number] [place] [address]- 2721 Mar, [facility] [place] [facility] [address] [id number] [place] [address]- 4085 Mar, [facility] [place] [facility] [address] [id number] [place] [address]- 1624 Mar, [facility] [place] [facility] [address] [id number] [place] [address]- 8044 Mar, [facility] [place] [facility] [address] [id number] [place] [address]- 8026 Mar, [facility] [place] [facility] [address] [id number] [place] [address]- 9678 Feb, [facility] [place] [facility] [address] [id number] [place] [address]- 0401 Feb, [facility] [place] [facility] [address] [id number] [place] [address]- 4371 Nov, [facility] [place] [facility] [address] [id number], [place] [address]- 8956 Nov, [facility] [place] [facility] [address] [id number], [place] [address]- 0678 Nov, [facility] [place] [facility] [address] [id number] [place] [address]- 9413 Oct, [facility] [place] [facility] [address] [id number], [place] [address] 7677 September, [facility] [place] [facility] [address] [id number] [place] [address]- 5064 Aug, [facility] [place] [facility] [address] [id number] [place] [address]- 2754 15 Aug, 2012 [facility] [address] [id number] [place] [address]- 6606 11 Aug, 2012 [facility] [place] [facility] [address] [id number] [place] [address]- 1796 Aug, [facility] [address] [id number] [place] [address]- 9787 10 Aug, 2012 [facility] [place] [facility] [address] [id number] [place] [address]- 2546 Aug, [facility] [address] [id number] [place] [address]- 6530 Aug, [facility] [place] [facility] [address] [facility] [id number] [place] [address]- 6787 Aug, [facility] [address] [id number] [place] [address]- 2058 Jul, [facility] [address] [id number] [place] [address]- 5280 Jul, [facility] [place] [facility] [address] [facility] [id number] [place] [address]- 6544 Jun, [facility] [address] [facility] [id number] [place] [address]- 1523 Jun, [facility] [place] [facility] [address] [id number] [place] [address] 2546 Jun, [facility] [place] [facility] [address] [facility] [id number] [place] [address] 2549 08 Jun, 2012 [facility] [place] [facility] [address] [id number] [place] [address]- 1918 Jun, [facility] [place] [facility] [address] [facility] [id number] [place] [address] 07 Jun, 2012 [facility] [place] [facility] [address] [facility] [id number] [place] [address]- 9347 Jun, [facility] [address] [facility] [id number], [place] [address]- 5631 May, [facility] [id number], [place] [address]- 7178 May, [facility] [address] [facility] [id number], [place] [address]- 9043 May, [facility] [id number], [place] [address]- 3927 May, [facility] [id number], [place] [address]- 0143 Mar, [facility] [id number], [place] [address]- 7903 Mar, [facility] [id number], [place] [address]- 6223 Jan, IMMUNIZATIONS No Known Immunizations SOCIAL HISTORY [...] High blood sugar 2016 Hospitalization History DKA, vomitting-[facility] 03/05/17 Hospitalization History hospital stay at [facility] for stomach issues 2016
--- OUTSIDE RECORDS SUMMARY | 2018-05-04 15:45 | XMS REPORT ---
Author Author HORACE HIGGINS [facility] Address [address] [place] [address] Care Team Providers Care Robotics Technologist Name Role Phone HORACE HIGGINS Unavailable PROBLEMS Type Condition ICD9-CM Code LRT30-PV Code Onset Dates Condition Status SNOMED Code Problem Primary insomnia F51.01 Active 9490845 Problem Reactive depression F32.9 Active 36990894 Problem Asthma exacerbation J45.901 Active 681074559 Problem Irritable bowel syndrome with constipation K58.1 Active 907423177 Problem Back pain M54.9 Active 330797895 Problem Tobacco dependency F17.200 Active 33071621 Problem Low TSH level R94.6 Active 618938939 Problem PTSD (post-traumatic stress disorder) F43.10 Active 53862032 Problem Diabetic polyneuropathy associated with type 2 diabetes mellitus E11.42 Active 29769411 Problem Annual physical exam Z00.00 Active 941326684 Problem Migraine without aura and without status migrainosus, not intractable G43.009 Active 160266481 Problem Gastroparesis K31.84 Active 221890857 Problem 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 [id number] [address] Apr, [facility] [address] [id number] [address] Feb, [facility] [address] [place] [address] 09844- 8549 25 Jan, 2018 Dysfunction of left eustachian tube H69.82 [facility] [id number] [place] [address] 25080- 1451 24 Jan, 2018 [facility] [id number] [place] [address] 88865- 6999 21 Jan, 2018 [facility] [id number] [place] [address] 58017- 2876 19 Jan, 2018 [facility] [id number] [place] [address] 02263- 6375 19 Jan, 2018 [facility] [id number] [place] [address] 64426- 6422 18 Jan, 2018 [facility] [address] 00815- 9027 18 Jan, 2018 Left upper arm pain M79.622 [facility] [address] [place] [address] 31095- 6712 18 Jan, 2018 PTSD (post-traumatic stress disorder) F43.10 and Tobacco dependency F17.200 [facility] [id number] [place] [address] 01297- 4157 10 Jan, 2018 Back pain M54.9 ; Type 2 diabetes mellitus with diabetic autonomic (poly)neuropathy E11.43 ; Neuropathy G62.9 ; Irritable bowel syndrome with constipation K58.1 ; Sprain of other part of left shoulder region, initial encounter S43.492A and Dysfunction of left eustachian tube H69.82 [facility] [address] [place] [address] 19242- 0612 06 Jan, 2018 [facility] [address] [place] [address] 92828- 0332 05 Jan, 2018 Neuropathy G62.9 ; LLQ pain R10.32 and Other dorsalgia M54.89 [facility] [id number] [place] [address] 90567- 7848 Jan, [facility] [id number] [place] [address] 52277- 0390 Jan, [facility] [id number] [place] [address] 61717- 5863 Dec, Right upper quadrant abdominal pain R10.11 [place] [address] 74897- 4917 Dec, PTSD (post-traumatic stress disorder) F43.10 [place] [address] [place] [address] 28059- 9011 Dec, LLQ pain R10.32 [place] [address] [place] [address] 69708- 6435 Dec, Other dorsalgia M54.89 [place] [address] 32311- 8187 Dec, Neuropathy G62.9 [place] [address] 78048- 6666 Dec, [place] [address] 78907- 0743 Nov, Irritable bowel syndrome with constipation K58.1 ; Uncomplicated asthma, unspecified asthma severity J45.909 and Type 2 diabetes mellitus with diabetic autonomic (poly)neuropathy E11.43 [facility] [id number] [place] [address] [id number] Nov, Dental examination Z01.20 [place] [address] [place] [address] 61392- 9679 Nov, Other dorsalgia M54.89 [place] [address] 56735- 4033 Nov, LLQ pain R10.32 ; Low TSH level R94.6 and Gastroparesis K31.84 [place] [address] [place] [address]- 7231 09 Nov, 2017 Anorexia R63.0 [facility] [id number] [place] [address] 64920- 2966 06 Nov, 2017 Asthma exacerbation J45.901 [facility] [address] [place] [address] 84972 2546 27 Oct, 2017 PTSD (post-traumatic stress disorder) F43.10 [facility] [address] 22551- 4436 Oct, [facility] [address] 53157- 2256 Oct, PTSD (post-traumatic stress disorder) F43.10 and Tobacco dependency F17.200 [place] [address] 26221- 7229 Oct, [place] [address] 43072- 4375 Oct, Other dorsalgia M54.89 [place] [address] [place] [address] 36040- 3666 Oct, Anorexia R63.0 [place] [address] [place] [address] 96486- 3058 September, PTSD (post-traumatic stress disorder) F43.10 [place] [address] [place] [address] 90168- 4164 September, Low TSH level R94.6 [place] [address] [place] [address] 28287- 5040 September, Other dorsalgia M54.89 [place] [address] [place] [address] 76158- 0346 September, Annual physical exam Z00.00 and Migraine without aura and without status migrainosus, not intractable G43.009 [place] [address] 34240- 8839 September, Abnormal TSH R94.6 and Dysfunction of left eustachian tube H69.82 [facility] [address] 15151- 9884 Aug, [facility] [address] 57715- 6969 Aug, Anorexia R63.0 [facility] [address] [id number] Aug, Dental examination Z01.20 and Xerostomia K11.7 [facility] [address] 35857- 5984 Aug, Neuropathy G62.9 [facility] [address] 29521- 2305 Aug, [place] [address] 34349- 0189 Aug, Other dorsalgia M54.89 [place] [address] 16349- 7476 Aug, Type 2 diabetes mellitus with diabetic autonomic (poly) neuropathy E11.43 ; Diabetic polyneuropathy associated with type 2 diabetes mellitus E11.42 ; Bronchitis J40 ; Gastroparesis K31.84 and Reactive depression F32.9 [place] [address] 34278- 7560 Aug, PTSD (post-traumatic stress disorder) F43.10 [facility] [address] [place] [address] 51525- 9624 Aug, Other dorsalgia M54.89 and Anorexia R63.0 [facility] [address] 24360- 5807 Jul, [facility] [address] 59904- 7710 Jul, Other dorsalgia M54.89 [place] [address] [place] [address]- 1439 Jul, [facility] [id number] [place] [address] 44559- 1614 Jul, [facility] [id number] [place] [address] 42610- 9071 Jul, PTSD (post-traumatic stress disorder) F43.10 [facility] [id number] [place] [address] 46085- 3181 Jul, [facility] [address] [place] [address] 13831- 5788 Jul, [facility] [address] [place] [address] 72141- 5457 Jul, [facility] [address] [place] [address] 21449- 3995 Jul, Anorexia R63.0 [facility] [address] [place] [address] 44838- 8689 Jun, [facility] [address] [place] [address] 34129- 0178 Jun, Vaginal discharge N89.8 ; Visit for gynecologic examination Z01.419 and Pelvic pressure in female R10.2 [facility] [address] [place] [address] 09100- 0016 Jun, [facility] [address] [place] [address] 81360- 3804 Jun, Other dorsalgia M54.89 [facility] [address] [place] [address] 33150- 5156 16 Jun, 2017 [facility] [address] [place] [address] 22935- 9706 07 Jun, 2017 [facility] [address] [place] [address] 10315- 5186 Jun, [facility] [id number] [place] [address] 99799- 7956 May, Back pain M54.9 [facility] [address] 40201- 3286 May, Anorexia R63.0 [facility] [address] 40211- 8934 May, Other dorsalgia M54.89 [facility] [address] 03083- 0747 May, [facility] [address] 60140- 9151 May, Bronchitis J40 [facility] [address] 73296- 7586 May, Type 2 diabetes mellitus with diabetic autonomic (poly) neuropathy E11.43 ; FPC current use of insulin Z79.4 ; Back pain M54.9 and Neuropathy G62.9 [facility] [address] [place] [address] 84644- 7913 May, Left breast mass N63.20 [facility] [address] 11261- 7678 May, [facility] [address] 74979- 4065 Apr, Other dorsalgia M54.89 [facility] [address] [place] [address] 79566- 3354 Apr, Anorexia R63.0 [facility] [address] 24553- 8389 Apr, Anorexia R63.0 [facility] [address] 01217- 9582 Apr, Mass of left breast N63.20 [facility] [address] [place] [address] 37742- 0234 Apr, [facility] [address] [place] [address] 34305- 6987 Apr, [facility] [address] [place] [address] 69516- 8036 Apr, Diarrhea of presumed infectious origin A09 [facility] [address] [place] [address] 13072- 5873 Apr, Encounter for immunization Z23 [facility] [address] 79530- 6132 Apr, [facility] [address] [place] [address] 53582- 9188 Mar, Other dorsalgia M54.89 [facility] [address] [place] [address] 00640- 9316 Mar, [facility] [address] [place] [address] 05905- 5586 Mar, [facility] [address] [place] [address] 13249- 3924 Mar, Anorexia R63.0 [facility] [address] [place] [address] 29146- 1516 Mar, [facility] [address] [place] [address] 79677 2543 Mar, Other dorsalgia M54.89 [facility] [address] [place] [address] 99004- 0061 Mar, [facility] [address] [place] [address] 72145 2540 Mar, Encounter for immunization Z23 [facility] [address] [place] [address] 19625- 6216 Feb, Anorexia R63.0 [facility] [address] [place] [address] 57354 2546 Feb, Diabetes E11.9 [facility] [id number] [place] [address] 05203- 3822 Feb, Back pain M54.9 and Diabetes E11.9 [facility] [address] 27951- 3217 Feb, Diabetes E11.9 [facility] [address] 97229- 2717 Feb, Neuropathy G62.9 [facility] [address] 05054- 6555 Feb, Encounter for immunization Z23 ; Epigastric pain R10.13 ; Weight loss, abnormal R63.[address] [facility] [address] [id number] Feb, [facility] [address] 09617- 1128 Feb, [facility] [address] 34793- 6361 Feb, Intractable vomiting with nausea, unspecified vomiting type R11.2 [facility] [address] 32486 -6326 Feb, Chronic nausea R11.0 [facility] [address] 46132- 0418 Feb, Other dorsalgia M54.89 [facility] [address] [place] [address] 92181- 5009 Jan, [facility] [address] 76184- 8524 Jan, [facility] [address] 36009- 9887 Jan, [facility] [address] 26800- 9613 Jan, [facility] [address] 67535- 4739 08 Jan, 2017 Asthma exacerbation J45.901 ; Bronchitis J40 and Neuropathy G62.9 [facility] [address] 08978- 2216 06 Jan, 2017 Anorexia R63.0 [facility] [address] [place] [address] 86370- 3724 Jan, Other dorsalgia M54.89 [facility] [address] 54547- 1122 Dec, [facility] [address] 98821- 9526 Dec, [facility] [address] 98898- 7366 Dec, Anorexia R63.0 [facility] [address] 00322- 2951 Dec, Primary insomnia F51.01 [facility] [address] 41140- 9753 Dec, Other dorsalgia M54.89 [facility] [address] 27688- 2424 Dec, [facility] [address] [place] [address] 61943- 5234 Nov, [facility] [address] [place] [address] 35354- 6979 Nov, [facility] [address] [place] [address] 62474- 4530 Nov, [facility] [address] 30325- 2804 Nov, History of colon polyps Z86.010 [facility] [address] [place] [address] 51267- 2461 Nov, Weight loss R63.4 ; Nausea and vomiting, intractability of vomiting not specified, unspecified vomiting type R11.2 and Abnormal LFTs R79.89 [facility] [address] [place] [address] 69210- 2559 18 Nov, 2016 [facility] [address] 67353- 5935 Nov, Neuropathy G62.9 and Pain in right knee M25.561 [facility] [address] 89690- 0327 Nov, Back pain M54.9 [facility] [address] 14102- 7977 Nov, [facility] [address] 73138- 7023 Nov, Bronchitis J40 [facility] [address] 10770- 8845 Nov, Weight loss R63.4 [facility] [address] 27855- 8767 Oct, Back pain M54.9 [facility] [address] 06904- 5933 Oct, [facility] [address] [place] [address] 41185- 4108 Oct, Back pain M54.9 [facility] [address] 48683- 5917 Oct, Type 2 diabetes mellitus without complications E11.9 and Bronchitis J40 [facility] [address] [place] [address] 35101- 7189 Oct, [facility] [address] 84615- 5371 Oct, [facility] [address] [place] [address] 43463- 0326 September, Gastroparesis K31.84 ; Type 2 diabetes mellitus with diabetic autonomic (poly)neuropathy E11.43 and Neuropathy G62.9 [facility] [address] [place] [address] 79878- 6431 September, Other dorsalgia M54.89 [facility] [address] [place] [address] 56497- 4535 September, [facility] [address] [place] [address] 81737- 7658 September, [facility] [address] 12844- 3916 Aug, Gastroparesis K31.84 and Radicular leg pain M54.10 [place] [address] 44683- 5985 Aug, Anorexia R63.0 [place] [address] 93597- 7518 Aug, Bronchitis J40 [facility] [address] [place] [address] 00623- 9766 Aug, Back pain M54.9 [place] [address] [place] [address] 71707- 5501 Aug, Routine gynecological examination Z01.419 ; Routine screening for STI (sexually transmitted infection) Z11.3 and Yeast infection of the vagina B37.3 [facility] [address] [place] [address] 08376- 2939 Jul, Other dorsalgia M54.89 [facility] [address] [place] [address] 60296- 2557 Jul, Diabetes E11.9 and Gastroparesis K31.84 [facility] [address] [place] [address] 83377- 5327 Jun, [facility] [address] [place] [address] 72255- 0858 Jun, Back pain M54.9 [place] [address] [place] [address] 62367- 7551 14 Jun, 2016 Neuropathy G62.9 [facility] [address] [id number] 02 Jun, 2016 Encounter for dental examination Z01.20 [facility] [address] 15864- 7831 01 Jun, 2016 Gastroparesis 536.3 and Anorexia R63.0 [facility] [address] 55061 2548 27 May, 2016 Other dorsalgia M54.89 [facility] [address] 56141- 3246 10 May, 2016 Periumbilical abdominal pain R10.33 ; Weight loss R63.4 and Gastroparesis K31.84 [facility] [address] 39551- 7293 May, Back pain M54.9 [facility] [address] 33601 254 Apr, Anorexia R63.0 [facility] [address] 35685 2542 Apr, Anorexia R63.0 [facility] [address] [place] [address] 79767 2540 16 Apr, 2016 Back pain M54.9 [facility] [address] 71753 2546 15 Apr, 2016 Back pain M54.9 [facility] [address] 98199 2546 Apr, [facility] [address] 15856 2546 Apr, Bronchitis J40 and Neuropathy G62.9 [facility] [address] 92601- 7648 Apr, Neuropathy G62.9 [facility] [address] [place] [address] 08824- 7076 Apr, [facility] [address] [place] [address] 04797- 0822 Apr, Back pain M54.9 [facility] [address] [place] [address] 41958- 0824 Mar, Type 2 diabetes mellitus with diabetic autonomic (poly) neuropathy E11.43 [facility] [address] [place] [address] 77721- 7585 Mar, Type 2 diabetes mellitus without complications E11.9 [facility] [address] [place] [address] 94188- 5347 Mar, Neuropathy G62.9 [facility] [id number] [place] [address] [phone]- [phone] Mar, [facility] [id number] [place] [address] 39554- [phone] Mar, Breast cancer screening Z12.39 [place] [address] [address]- [address] Mar, Other dorsalgia M54.89 [facility] [id number] [place] [address] [phone]- 0889 Feb, [facility] [id number] [place] [address] [phone]- [phone] Jan, Neuropathy G62.9 ; Type 2 diabetes mellitus with diabetic autonomic (poly)neuropathy E11.43 ; Uncomplicated asthma, unspecified asthma severity J45.909 and Encounter for immunization Z23 [facility] [id number] [place] [address] [phone] Jan, [facility] [id number] [place] [address] [phone] Jan, [facility] [address] [place] [address] Dec, [facility] [id number] [place] [address] [phone] Dec, [facility] [id number] [place] [address] 26982- [phone] Nov, [facility] [id number] [place] [address] 18912- 4911 Nov, Back pain M54.9 [facility] [id number] [place] [address] 06825- 6025 Nov, Neuropathy G62.9 ; Mixed hyperlipidemia E78.2 ; Type 2 diabetes mellitus with diabetic autonomic (poly)neuropathy E11.43 and [facility] current use of insulin Z79.4 [place] [id number] [place] [address] 40584- 6075 Oct, [facility] [address] [address]- 9885 Oct, Other dorsalgia M54.89 [facility] [id number] [place] [address] 77866- 5283 September, Primary insomnia F51.01 [facility] [id number] [place] [address] 85987- 0541 September, [facility] [id number] [place] [address] 68190- 6152 Aug, Other dorsalgia M54.89 [facility] [id number] [place] [address] [phone]- 8609 Jul, [facility] [id number] [place] [address] 20246- 5685 Jul, Other dorsalgia M54.89 [facility] [id number] [place] [address] 35039- 7158 Jul, Diabetes E11.9 ; Back pain M54.9 ; Neuropathy G62.9 and Gastroparesis K31.84 [id number] [address] Jun, [facility] [id number] [place] [address]95 2546 Jun, Other dorsalgia M54.89 [facility] [id number] [place] [address] 53896 2546 May, [facility] [id number] [place] [address] 81386 2546 May, Radicular leg pain M54.10 and Other dorsalgia M54.89 [facility] [id number] [place] [address] 32343- 2926 Apr, [facility] [id number] [place] [address] 93274- 6366 Mar, [facility] [id number] [place] [address] 50819- 9904 Mar, [facility] [id number] [place] [address] 79519- 9198 Mar, Radicular leg pain M54.10 [facility] [id number] [place] [address] 77976- 0257 Feb, [facility] [address] [address] 6009 Feb, [facility] [id number] [place] [address] 97442 2540 Feb, [facility] [address] [address] 2544 Jan, [facility] [id number] [place] [address] 50688- 2181 Jan, IBS (irritable bowel syndrome) 564.1 [facility] [address] [address] 4534 Jan, [facility] [id number] [place] [address] 12792- 8582 Jan, [facility] [id number] [place] [address] 47251- 4614 Jan, Diabetes mellitus without mention of complication, type II or unspecified type, not stated as uncontrolled 250.00 ; Gastroparesis 536.3 and Hypoacusis 389.9 [facility] [id number] [place] [address] 97653- 8759 Jan, [facility] [id number] [place] [address] 61506- 2750 Jan, [facility] [id number] [place] [address] 38214- 8053 Dec, [facility] [id number] [place] [address] 74623- 1384 Dec, [facility] [id number] [place] [address] 32199- 2235 Dec, [facility] [id number] [place] [address] 72529- 3406 Dec, Back pain 724.5 and Gastroparesis 536.3 [facility] [id number] [place] [address] 91091- 5386 Nov, [facility] [id number] [place] [address] [id number] Nov, Dental examination V72.2 [facility] [id number] [place] [address] 90918- 5583 Nov, [facility] [id number] [place] [address] 98864- 6995 Nov, [facility] [id number] [place] [address] 48618- 5269 Nov, Depressive disorder, not elsewhere classified 311 and No condition on Webb II V71.09 [facility] [id number] [place] [address] 81363- 2496 Nov, Diabetes 250.00 and Symptomatic menopausal or female climacteric states 627.2 [facility] [address] [address] 3976 Oct, [facility] [address] [address] 8296 Oct, Lumbar strain 847.2 [facility] [address] [address] 7816 Oct, Gastroparesis 536.3 and Unspecified myalgia and myositis 729.1 [facility] [address] [address] 8306 Aug, [facility] [address], [place] [address]- 2036 Aug, [facility] [address], [place] [address] 2752 Jul, [facility] [address], [place] [address]- 7501 Jul, [facility] [address], [place] [address] 3013 Jul, [facility] [address], [place] [address]- 1056 Jul, [facility] [address], [place] [address]- 3146 Jul, [facility] [id number], [place] [address] 3146 Jun, [facility] [address], [place] [address]- 3946 Jun, [facility] [address], [place] [address]- 2546 Jun, [facility] [address], [place] [address]- 1208 May, [facility] [place] [facility] [address] [id number] [place] [address]- 5832 May, [facility] [place] [facility] [address] [id number] [place] [address]- 4123 Mar, [facility] [place] [facility] [address] [id number] [place] [address]- 0546 Mar, [facility] [place] [facility] [address] [id number] [place] [address]- 1897 Mar, [facility] [place] [facility] [address] [id number] [place] [address]- 8798 Mar, [facility] [place] [facility] [address] [id number] [place] [address]- 3305 Mar, [facility] [place] [facility] [address] [id number] [place] [address]- 5681 Mar, [facility] [place] [facility] [address] [id number] [place] [address]- 2855 Feb, [facility] [place] [facility] [address] [id number] [place] [address]- 0630 Feb, [facility] [place] [facility] [address] [id number] [place] [address]- 8427 Nov, [facility] [place] [facility] [address] [id number] [address]- 4985 Nov, [facility] [place] [facility] [address] [id number] [address]- 0740 Nov, [facility] [place] [facility] [address] [id number] [place] [address]- 3165 Oct, [facility] [place] [facility] [address] [id number] [address]- 6981 September, [facility] [place] [facility] [address] [id number] [place] [address]- 1580 Aug, [facility] [place] [facility] [address] [id number] [place] [address]- 1124 15 Aug, 2012 [facility] [address] [id number] [place] [address]- 7526 11 Aug, 2012 [facility] [place] [facility] [address] [id number] [place] [address]- 8946 Aug, [facility] [address] [id number] [place] [address]- 7527 10 Aug, 2012 [facility] [place] [facility] [address] [id number] [place] [address]- 2546 Aug, [facility] [address] [id number] [place] [address]- 8479 Aug, [facility] [place] [facility] [address] [facility] [id number] [place] [address]- 3656 Aug, [facility] [address] [id number] [place] [address]- 1727 Jul, [facility] [address] [id number] [place] [address]- 4320 Jul, [facility] [place] [facility] [address] [facility] [id number] [place] [address]- 4110 Jun, [facility] [address] [facility] [id number] [place] [address]- 4398 Jun, [facility] [place] [facility] [address] [id number] [place] [address] 2546 Jun, [facility] [place] [facility] [address] [facility] [id number] [place] [address] 2545 08 Jun, 2012 [facility] [place] [facility] [address] [id number] [place] [address]- 9076 Jun, [facility] [place] [facility] [address] [facility] [id number] [place] 8766 07 Jun, 2012 [facility] [place] [facility] [address] [facility] [id number] [place] [address]- 7419 Jun, [facility] [address] [facility] [id number] [address] May, [facility] [id number] [address]- 3743 May, [facility] [id number] [address]- 4254 May, [facility] [id number] [address]- 6813 May, [facility] [id number], [place] [address]- 2109 Mar, [facility] [id number], [place] [address]- 4495 Mar, [facility] [id number], [place] [address]- 2255 Jan, IMMUNIZATIONS No Known Immunizations SOCIAL HISTORY Never Assessed REASON FOR VISIT Re:Scheduling PLAN OF CARE VITAL SIGNS MEDICATIONS Unknown [...] High blood sugar 2016 Hospitalization History DKA, vomitting-[facility] 03/05/17 Hospitalization History hospital stay at [facility] for stomach issues 2016
--- OUTSIDE RECORDS SUMMARY | 2018-05-04 15:45 | XMS REPORT ---
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 Name Role Phone HORACE HIGGINS Unavailable PROBLEMS Type Condition ICD9-CM Code PKP33-RS Code Onset Dates Condition Status SNOMED Code Problem Primary insomnia F51.01 Active 3514870 Problem Reactive depression F32.9 Active 45554394 Problem Asthma exacerbation J45.901 Active 338464870 Problem Irritable bowel syndrome with constipation K58.1 Active 142067737 Problem Back pain M54.9 Active 683921692 Problem Tobacco dependency F17.200 Active 10070087 Problem Low TSH level R94.6 Active 344373853 Problem PTSD (post-traumatic stress disorder) F43.10 Active 58330455 Problem Diabetic polyneuropathy associated with type 2 diabetes mellitus E11.42 Active 77488791 Problem Annual physical exam Z00.00 Active 047545751 Problem Migraine without aura and without status migrainosus, not intractable G43.009 Active 631100235 Problem Gastroparesis K31.84 Active 038323643 Problem 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 Active 147058665 Problem Neuropathy G62.9 Active 095448488 Problem Diabetes E11.9 Active 19444605 Problem Uncomplicated asthma, unspecified asthma severity J45.909 Active 199621018 Problem Anorexia R63.0 Active 64770807 Problem Mixed hyperlipidemia E78.2 Active 831467307 Problem Weight loss R63.4 Active 489994651 Problem Type 2 diabetes mellitus with diabetic autonomic (poly)neuropathy E11.43 Active 59367151 Problem History of colon polyps Z86.010 Active 850973279 ALLERGIES No Information ENCOUNTERS Encounter Location Date Diagnosis [facility] [address] [facility] [id number] [address] Apr, [facility] [address] [id number] [address] Feb, [facility] [id number] [place] [address] 59467- 6476 25 Jan, 2018 Dysfunction of left eustachian tube H69.82 [facility] [id number] [place] [address] 97012- 0146 24 Jan, 2018 [facility] [id number] [place] [address] 42147- 4718 21 Jan, 2018 [facility] [id number] [place] [address] 16694- 0738 Jan, [facility] [id number] [place] [address] 61587- 6382 19 Jan, 2018 [facility] [id number] [place] [address] 28830- 5642 18 Jan, 2018 Left upper arm pain M79.622 [facility] [id number] [place] [address] 06030- 1973 18 Jan, 2018 [facility] [id number] [place] [address] 64383- 8265 18 Jan, 2018 PTSD (post-traumatic stress disorder) F43.10 and Tobacco dependency F17.200 [facility] [id number] [place] [address] 11235- 1145 10 Jan, 2018 Back pain M54.9 ; Type 2 diabetes mellitus with diabetic autonomic (poly)neuropathy E11.43 ; Neuropathy G62.9 ; Irritable bowel syndrome with constipation K58.1 ; Sprain of other part of left shoulder region, initial encounter S43.492A and Dysfunction of left eustachian tube H69.82 [facility] [id number] [place] [address] 04934- 3826 06 Jan, 2018 [facility] [id number] [place] [address] 99395- 9084 05 Jan, 2018 Neuropathy G62.9 ; LLQ pain R10.32 and Other dorsalgia M54.89 [facility] [id number] [place] [address] 68466- 9282 Jan, [facility] [id number] [place] [address] 41722- 3276 Jan, [facility] [id number] [place] [address] 15090- 1756 Dec, Right upper quadrant abdominal pain R10.11 [facility] [address] 08400- 4696 Dec, PTSD (post-traumatic stress disorder) F43.10 [facility] [id number] [place] [address] 49876- 7939 Dec, LLQ pain R10.32 [facility] [id number] [place] [address] 84924- 1693 Dec, Other dorsalgia M54.89 [place] [address] 92874- 1277 Dec, Neuropathy G62.9 [place] [address] 98566- 8470 Dec, [place] [address] 08173- 4730 Nov, Irritable bowel syndrome with constipation K58.1 ; Uncomplicated asthma, unspecified asthma severity J45.909 and Type 2 diabetes mellitus with diabetic autonomic (poly)neuropathy E11.43 [facility] [id number] [place] [address] [id number] Nov, Dental examination Z01.20 [facility] [id number] [place] [address] 64376- 5248 Nov, Other dorsalgia M54.89 [place] [address] 76827- 9825 Nov, LLQ pain R10.32 ; Low TSH level R94.6 and Gastroparesis K31.84 [place] [address] [place] [address]- 2082 09 Nov, 2017 Anorexia R63.0 [facility] [id number] [place] [address] 86781- 0356 06 Nov, 2017 Asthma exacerbation J45.901 [facility] [id number] [place] [address] 19868 2546 27 Oct, 2017 PTSD (post-traumatic stress disorder) F43.10 [facility] [address] 09971- 3906 Oct, [facility] [address] 49365- 9743 Oct, PTSD (post-traumatic stress disorder) F43.10 and Tobacco dependency F17.200 [place] [address] 61026- 6429 Oct, [facility] [address] 38567- 6856 Oct, Other dorsalgia M54.89 [facility] [id number] [place] [address] 91795- 4123 Oct, Anorexia R63.0 [facility] [id number] [place] [address] 75539- 3294 September, PTSD (post-traumatic stress disorder) F43.10 [facility] [id number] [place] [address] 83538- 0675 September, Low TSH level R94.6 [facility] [id number] [place] [address] 69686- 2566 September, Other dorsalgia M54.89 [facility] [id number] [place] [address] 99358- 1256 September, Annual physical exam Z00.00 and Migraine without aura and without status migrainosus, not intractable G43.009 [place] [address] 78381- 8974 September, Abnormal TSH R94.6 and Dysfunction of left eustachian tube H69.82 [facility] [address] 97960- 3466 Aug, [facility] [address] 92078- 1759 Aug, Anorexia R63.0 [facility] [id number] Aug, Dental examination Z01.20 and Xerostomia K11.7 [facility] [address] 75567- 8186 Aug, Neuropathy G62.9 [facility] [address] 07375- 3906 Aug, [place] [address] 11444- 4390 Aug, Other dorsalgia M54.89 [place] [address] 97201- 0427 Aug, Type 2 diabetes mellitus with diabetic autonomic (poly) neuropathy E11.43 ; Diabetic polyneuropathy associated with type 2 diabetes mellitus E11.42 ; Bronchitis J40 ; Gastroparesis K31.84 and Reactive depression F32.9 [place] [address] 37702- 1864 Aug, PTSD (post-traumatic stress disorder) F43.10 [facility] [id number] [place] [address] 47483- 1628 Aug, Other dorsalgia M54.89 and Anorexia R63.0 [facility] [address] 96069- 7603 Jul, [facility] [address] 06447- 5911 Jul, Other dorsalgia M54.89 [place] [address] [place] [address]- 1136 Jul, [facility] [id number] [place] [address] 67701- 3919 Jul, [facility] [id number] [place] [address] 11855- 8896 Jul, PTSD (post-traumatic stress disorder) F43.10 [facility] [id number] [place] [address] 94743- 2490 Jul, [facility] [id number] [place] [address] 09354- 1522 Jul, [facility] [id number] [place] [address] 74138- 4064 Jul, [facility] [id number] [place] [address] 17186- 4246 Jul, Anorexia R63.0 [facility] [id number] [place] [address] 89646- 6964 Jun, [facility] [id number] [place] [address] 32998- 8396 Jun, Vaginal discharge N89.8 ; Visit for gynecologic examination Z01.419 and Pelvic pressure in female R10.2 [facility] [id number] [place] [address] 28073- 9056 Jun, [facility] [id number] [place] [address] 85962- 4208 Jun, Other dorsalgia M54.89 [facility] [id number] [place] [address] 55017- 4736 16 Jun, 2017 [facility] [id number] [place] [address] 86078- 8806 07 Jun, 2017 [facility] [id number] [place] [address] 07654- 3266 Jun, [facility] [id number] [place] [address] 15646- 2773 May, Back pain M54.9 [facility] [address] 47331- 3386 May, Anorexia R63.0 [facility] [address] 54177- 0579 May, Other dorsalgia M54.89 [facility] [address] 09319- 8274 May, [facility] [address] 15528- 7440 May, Bronchitis J40 [facility] [address] 27337- 6287 May, Type 2 diabetes mellitus with diabetic autonomic (poly) neuropathy E11.43 ; FDC current use of insulin Z79.4 ; Back pain M54.9 and Neuropathy G62.9 [facility] [id number] [place] [address] 64031- 9940 May, Left breast mass N63.20 [facility] [address] 53013- 8724 May, [facility] [address] 21064- 1678 Apr, Other dorsalgia M54.89 [facility] [id number] [place] [address] 52455- 8260 Apr, Anorexia R63.0 [facility] [address] 73493- 7274 Apr, Anorexia R63.0 [facility] [address] 21153- 5050 Apr, Mass of left breast N63.20 [facility] [id number] [place] [address] 35949- 0040 Apr, [facility] [id number] [place] [address] 10750- 5580 Apr, [facility] [id number] [place] [address] 15555- 9134 Apr, Diarrhea of presumed infectious origin A09 [facility] [id number] [place] [address] 28194- 0351 Apr, Encounter for immunization Z23 [facility] [address] 17212- 6441 Apr, [facility] [id number] [place] [address] 35652- 3741 Mar, Other dorsalgia M54.89 [facility] [id number] [place] [address] 02245- 6906 Mar, [facility] [id number] [place] [address] 79179- 2612 Mar, [facility] [id number] [place] [address] 76333- 4361 Mar, Anorexia R63.0 [facility] [id number] [place] [address] 11661- 6917 Mar, [facility] [id number] [place] [address] 82732 2549 Mar, Other dorsalgia M54.89 [facility] [id number] [place] [address] 58826- 2525 Mar, [facility] [id number] [place] [address] 01230 2543 Mar, Encounter for immunization Z23 [facility] [id number] [place] [address] 69384- 0846 Feb, Anorexia R63.0 [facility] [id number] [place] [address] 87072 2546 Feb, Diabetes E11.9 [facility] [id number] [place] [address] 35695- 6451 Feb, Back pain M54.9 and Diabetes E11.9 [facility] [address] 49499- 3597 Feb, Diabetes E11.9 [facility] [address] 83203- 9048 Feb, Neuropathy G62.9 [facility] [address] 33358- 8163 Feb, Encounter for immunization Z23 ; Epigastric pain R10.13 ; Weight loss, abnormal R63.4 and Neuropathy G62.9 [facility] [address] [id number] Feb, [facility] [address] 95859- 8218 Feb, [facility] [address] 80680- 3590 Feb, Intractable vomiting with nausea, unspecified vomiting type R11.2 [facility] [address] 68032 -3584 Feb, Chronic nausea R11.0 [facility] [address] 50384- 4681 Feb, Other dorsalgia M54.89 [facility] [id number] [place] [address] 66858- 4079 Jan, [facility] [address] 25568- 8338 Jan, [facility] [address] 11295- 5920 Jan, [facility] [address] 77578- 7143 Jan, [facility] [address] 07019- 8140 08 Jan, 2017 Asthma exacerbation J45.901 ; Bronchitis J40 and Neuropathy G62.9 [facility] [address] 39935- 6396 06 Jan, 2017 Anorexia R63.0 [facility] [id number] [place] [address] 79294- 0068 Jan, Other dorsalgia M54.89 [facility] [address] 76453- 9287 Dec, [facility] [address] 55319- 2234 Dec, [facility] [address] 28660- 4352 Dec, Anorexia R63.0 [facility] [address] 77665- 1238 Dec, Primary insomnia F51.01 [facility] [address] 25262- 8431 Dec, Other dorsalgia M54.89 [facility] [address] 08726- 1779 Dec, [facility] [id number] [place] [address] 13263- 6862 Nov, [facility] [id number] [place] [address] 59930- 5173 Nov, [facility] [id number] [place] [address] 09612- 2328 Nov, [facility] [address] 52143- 8592 Nov, History of colon polyps Z86.010 [facility] [id number] [place] [address] 90663- 4661 Nov, Weight loss R63.4 ; Nausea and vomiting, intractability of vomiting not specified, unspecified vomiting type R11.2 and Abnormal LFTs R79.89 [facility] [id number] [place] [address] 60647- 5053 18 Nov, 2016 [facility] [address] 84574- 7393 Nov, Neuropathy G62.9 and Pain in right knee M25.561 [facility] [address] 62497- 0528 Nov, Back pain M54.9 [facility] [address] 38213- 0806 Nov, [facility] [address] 63981- 9181 Nov, Bronchitis J40 [facility] [address] 54245- 7098 Nov, Weight loss R63.4 [facility] [address] 54379- 8979 Oct, Back pain M54.9 [facility] [address] 18638- 6020 Oct, [facility] [id number] [place] [address] 13255- 8898 Oct, Back pain M54.9 [facility] [address] 51976- 6792 Oct, Type 2 diabetes mellitus without complications E11.9 and Bronchitis J40 [facility] [id number] [place] [address] 66608- 9396 Oct, [facility] [address] 82785- 9951 Oct, [facility] [id number] [place] [address] 00197- 4845 September, Gastroparesis K31.84 ; Type 2 diabetes mellitus with diabetic autonomic (poly)neuropathy E11.43 and Neuropathy G62.9 [facility] [id number] [place] [address] 94128- 2754 September, Other dorsalgia M54.89 [facility] [id number] [place] [address] 40072- 8446 September, [facility] [id number] [place] [address] 44657- 8119 September, [facility] [address] 80359- 5000 Aug, Gastroparesis K31.84 and Radicular leg pain M54.10 [place] [address] 94404- 8636 Aug, Anorexia R63.0 [place] [address] 32851- 5431 Aug, Bronchitis J40 [facility] [id number] [place] [address] 97912- 1084 Aug, Back pain M54.9 [facility] [id number] [place] [address] 97177- 1279 Aug, Routine gynecological examination Z01.419 ; Routine screening for STI (sexually transmitted infection) Z11.3 and Yeast infection of the vagina B37.3 [facility] [id number] [place] [address] 23899- 1334 Jul, Other dorsalgia M54.89 [facility] [id number] [place] [address] 74116- 3304 Jul, Diabetes E11.9 and Gastroparesis K31.84 [facility] [id number] [place] [address] 69197- 9997 Jun, [facility] [id number] [place] [address] 85883- 7911 Jun, Back pain M54.9 [facility] [id number] [place] [address] 80280- 6638 14 Jun, 2016 Neuropathy G62.9 [facility] [address] [id number] 02 Jun, 2016 Encounter for dental examination Z01.20 [facility] [address] 32369- 5034 01 Jun, 2016 Gastroparesis 536.3 and Anorexia R63.0 [facility] [address] 69348 2543 27 May, 2016 Other dorsalgia M54.89 [facility] [address] 90760- 1111 10 May, 2016 Periumbilical abdominal pain R10.33 ; Weight loss R63.4 and Gastroparesis K31.84 [facility] [address] 65797- 6643 May, Back pain M54.9 [facility] [address] 64138 254 Apr, Anorexia R63.0 [facility] [address] 45796 2544 Apr, Anorexia R63.0 [facility] [id number] [place] [address] 74947 2544 16 Apr, 2016 Back pain M54.9 [facility] [address] 20517 2546 15 Apr, 2016 Back pain M54.9 [facility] [address] 44192 2546 Apr, [facility] [address] 67904 2546 Apr, Bronchitis J40 and Neuropathy G62.9 [facility] [address] 46937- 4916 Apr, Neuropathy G62.9 [facility] [id number] [place] [address] 92604- 7436 Apr, [facility] [id number] [place] [address] 43589- 9983 Apr, Back pain M54.9 [facility] [id number] [place] [address] 63324- 6728 Mar, Type 2 diabetes mellitus with diabetic autonomic (poly) neuropathy E11.43 [facility] [id number] [place] [address] 26435- 1866 Mar, Type 2 diabetes mellitus without complications E11.9 [facility] [id number] [place] [address] 96045- 3487 Mar, Neuropathy G62.9 [facility] [id number] [place] [address] 39108- 6733 Mar, [facility] [id number] [place] [address] 35721- 6816 Mar, Breast cancer screening Z12.39 [facility] [facility] [address] 74107- 5164 Mar, Other dorsalgia M54.89 [facility] [id number] [place] [address] 01603- 1114 Feb, [facility] [id number] [place] [address] 96632- 3917 Jan, Neuropathy G62.9 ; Type 2 diabetes mellitus with diabetic autonomic (poly)neuropathy E11.43 ; Uncomplicated asthma, unspecified asthma severity J45.909 and Encounter for immunization Z23 [facility] [id number] [place] [address] 61894- 6404 Jan, [facility] [id number] [place] [address] 22516- 6209 Jan, [facility] [address] [place] [address]- 7675 Dec, [facility] [id number] [place] [address] 29489- 9666 Dec, [facility] [id number] [place] [address] 45215- 9663 Nov, [facility] [id number] [place] [address] 92932- 9504 Nov, Back pain M54.9 [facility] [id number] [place] [address] 68004- 8975 Nov, Neuropathy G62.9 ; Mixed hyperlipidemia E78.2 ; Type 2 diabetes mellitus with diabetic autonomic (poly)neuropathy E11.43 and [facility]DC current use of insulin Z79.4 [facility] [id number] [place] [address] 55535- 9770 Oct, [facility] [address] 81563- 1390 Oct, Other dorsalgia M54.89 [facility] [id number] [place] [address] 63823- 5465 September, Primary insomnia F51.01 [facility] [id number] [place] [address] 84175- 8541 September, [facility] [id number] [place] [address] 93235- 6434 Aug, Other dorsalgia M54.89 [facility] [id number] [place] [address] 93465- 0964 Jul, [facility] [id number] [place] [address] 94937- 6120 Jul, Other dorsalgia M54.89 [facility] [id number] [place] [address] 16842- 5248 Jul, Diabetes E11.9 ; Back pain M54.9 ; Neuropathy G62.9 and Gastroparesis K31.84 [facility] [id number] [address] Jun, [facility] [id number] [place] [address] [id number] 2546 Jun, Other dorsalgia M54.89 [facility] [id number] [place] [address] 30132 2546 May, [facility] [id number] [place] [address] [id number] 2546 May, Radicular leg pain M54.10 and Other dorsalgia M54.89 [facility] [id number] [place] [address] 18103- 6226 Apr, [facility] [id number] [place] [address] [phone]- 5276 Mar, [facility] [id number] [place] [address] [phone]- 9216 Mar, [facility] [id number] [place] [address] 56698- 2218 Mar, Radicular leg pain M54.10 [facility] [id number] [place] [address] 21984- 7998 Feb, [facility] [id number] [address] Feb, [facility] [id number] [place] [address] [id number] 2544 Feb, [facility] [id number] [address] Jan, [facility] [id number] [place] [address] 21005- 9215 Jan, IBS (irritable bowel syndrome) 564.1 [facility] [id number] [address] Jan, [facility] [id number] [place] [address] 38621- 5078 Jan, [facility] [id number] [place] [address]05- 3400 Jan, Diabetes mellitus without mention of complication, type II or unspecified type, not stated as uncontrolled 250.00 ; Gastroparesis 536.3 and Hypoacusis 389.9 [facility] [id number] [place] [address] 31787- 4251 Jan, [facility] [id number] [place] [address] 74446- 8073 Jan, [facility] [id number] [place] [address] 14604- 8741 Dec, [facility] [id number] [place] [address] 47534- 6442 Dec, [facility] [id number] [place] [address] 44898- 2882 Dec, [facility] [id number] [place] [address] 99175- 8613 Dec, Back pain 724.5 and Gastroparesis 536.3 [facility] [id number] [place] [address] 06305- 0268 Nov, [facility] [id number] [place] [address] [id number] Nov, Dental examination V72.2 [facility] [id number] [place] [address] 34174- 2041 Nov, [facility] [id number] [place] [address] 38953- 6621 Nov, [facility] [id number] [place] [address] 48049- 2411 Nov, Depressive disorder, not elsewhere classified 311 and No condition on [place] II V71.09 [facility] [id number] [place] [address] 77805- 9026 Nov, Diabetes 250.00 and Symptomatic menopausal or female climacteric states 627.2 [facility] [address] [address] Oct, [facility] [address] [address] 1716 Oct, Lumbar strain 847.2 [facility] [address] [address] 6236 Oct, Gastroparesis 536.3 and Unspecified myalgia and myositis 729.1 [facility] [address] [address] 0816 Aug, [facility] [address] [address] 1506 Aug, [facility] [address] [address] 2457 Jul, [facility] [address], [place] [address] 5756 Jul, [facility] [address], [place] [address] 3044 Jul, [facility] [address], [place] [address] 5306 Jul, [facility] [address] [address]- 1206 Jul, [facility] [id number] [address] 4456 Jun, [facility] [address] [address]- 1186 Jun, [facility] [address] [place] [address]- 2546 Jun, [facility] [address] [place] [address] 2632 May, [facility] [place] [facility] [address] [id number] [place] [address]- 0850 May, [facility] [place] [facility] [address] [id number] [place] [address]- 3192 Mar, [facility] [place] [facility] [address] [id number] [place] [address]- 1531 Mar, [facility] [place] [facility] [address] [id number] [place] [address]- 7918 Mar, [facility] [place] [facility] [address] [id number] [place] [address]- 4798 Mar, [facility] [place] [facility] [address] [id number] [place] [address]- 2353 Mar, [facility] [place] [facility] [address] [id number] [place] [address]- 7626 Mar, [facility] [place] [facility] [address] [id number] [place] [address]- 1083 Feb, [facility] [place] [facility] [address] [id number] [place] [address]- 0656 Feb, [facility] [place] [facility] [address] [id number] [place] [address]- 2208 Nov, [facility] [place] [facility] [address] [id number] [address] Nov, [facility] [place] [facility] [address] [id number], [place] [address]- 7626 Nov, [facility] [place] [facility] [address] [id number] [place] [address]- 7759 Oct, [facility] [place] [facility] [address] [id number], [place] [address] 8312 September, [facility] [place] [facility] [address] [id number] [place] [address]- 6521 Aug, [facility] [place] [facility] [address] [id number] [place] [address]- 7118 15 Aug, 2012 [facility] [address] [id number] [place] [address]- 4956 11 Aug, 2012 [facility] [place] [facility] [address] [id number] [place] [address]- 9546 Aug, [facility] [address] [id number] [place] [address]- 1766 10 Aug, 2012 [facility] [place] [facility] [address] [id number] [place] [address]- 2546 Aug, [facility] [address] [id number] [place] [address]- 2563 Aug, [facility] [place] [facility] [address] [facility] [id number] [place] [address]- 1641 Aug, [facility] [address] [id number] [place] [address]- 9866 Jul, [facility] [address] [id number] [place] [address]- 4500 Jul, [facility] [place] [facility] [address] [facility] [id number] [place] [address]- 5722 Jun, [facility] [address] [facility] [id number] [place] [address]- 8203 Jun, [facility] [place] [facility] [address] [id number] [place] [address] 2546 Jun, [facility] [place] [facility] [address] [facility] [id number] [place] [address] 2543 08 Jun, 2012 [facility] [place] [facility] [address] [id number] [place] [address]- 2265 Jun, [facility] [place] [facility] [address] [facility] [id number] [place] [address] 07 Jun, 2012 [facility] [place] [facility] [address] [facility] [id number] [place] [address]- 1856 Jun, [facility] [address] [facility] [id number] [address] May, [facility] [id number] [address]- 2821 May, [facility] [address] [facility] [id number], [place] [address]- 8802 May, [facility] [address], [place] [address]- 4858 May, [facility] [id number] [address]- 8648 Mar, [facility] [address], [place] [address]- 3387 Mar, [facility] [id number], [place] [address]- 6462 Jan, IMMUNIZATIONS No Known Immunizations SOCIAL HISTORY Never Assessed REASON FOR VISIT Pain in left arm and shoulder,need to see Dr Higgins PLAN OF CARE VITAL SIGNS MEDICATIONS Unknown [...] High blood sugar 2016 Hospitalization History DKA, vomitting-[facility] 03/05/17 Hospitalization History hospital stay at [facility] for stomach issues 2016
--- OUTSIDE RECORDS SUMMARY | 2018-05-04 15:46 | XMS REPORT ---
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 Name Role Phone EDWINBERNADETTE CROSSA Unavailable PROBLEMS Type Condition ICD9-CM Code ALX09-LJ Code Onset Dates Condition Status SNOMED Code Problem Primary insomnia F51.01 Active 3356067 Problem Reactive depression F32.9 Active 46181642 Problem Asthma exacerbation J45.901 Active 421287529 Problem Irritable bowel syndrome with constipation K58.1 Active 062586660 Problem Back pain M54.9 Active 020611528 Problem Tobacco dependency F17.200 Active 97006178 Problem Low TSH level R94.6 Active 256017976 Problem PTSD (post-traumatic stress disorder) F43.10 Active 41572591 Problem Diabetic polyneuropathy associated with type 2 diabetes mellitus E11.42 Active 85558713 Problem Annual physical exam Z00.00 Active 409342063 Problem Migraine without aura and without status migrainosus, not intractable G43.009 Active 351632658 Problem Gastroparesis K31.84 Active 090979901 Problem 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 Active 857608828 Problem Neuropathy G62.9 Active 688428136 Problem Diabetes E11.9 Active 31971686 Problem Uncomplicated asthma, unspecified asthma severity J45.909 Active 057451179 Problem Anorexia R63.0 Active 82658459 Problem Mixed hyperlipidemia E78.2 Active 509953215 Problem Weight loss R63.4 Active 598472701 Problem Type 2 diabetes mellitus with diabetic autonomic (poly)neuropathy E11.43 Active 07728910 Problem History of colon polyps Z86.010 Active 735384319 ALLERGIES No Information ENCOUNTERS Encounter Location Date Diagnosis [facility] [address] [facility] [id number] [address] 18 Apr, 2018 [facility] [address] [id number] [address] Feb, [facility] [id number] [place] [address] 08483- 8399 Jan, [facility] [id number] [place] [address] 23078- 2419 Jan, [facility] [id number] [place] [address] 70650- 6443 Jan, Left upper arm pain M79.622 [facility] [id number] [place] [address] 66531- 0722 Jan, [facility] [id number] [place] [address] 19779- 8342 Jan, PTSD (post-traumatic stress disorder) F43.10 and Tobacco dependency F17.200 [facility] [id number] [place] [address] 37508- 6828 Jan, Back pain M54.9 ; Type 2 diabetes mellitus with diabetic autonomic (poly)neuropathy E11.43 ; Neuropathy G62.9 ; Irritable bowel syndrome with constipation K58.1 ; Sprain of other part of left shoulder region, initial encounter S43.492A and Dysfunction of left eustachian tube H69.82 [facility] [id number] [place] [address] 26227- 6753 Jan, [facility] [id number] [place] [address] 90413- 8388 05 Jan, 2018 Neuropathy G62.9 ; LLQ pain R10.32 and Other dorsalgia M54.89 [facility] [id number] [place] [address] 14562- 1162 Jan, [facility] [address] 25598- 9443 Jan, [facility] [id number] [place] [address] 11794- 2992 Dec, Right upper quadrant abdominal pain R10.11 [facility] [id number] [place] [address] 1351 Dec, PTSD (post-traumatic stress disorder) F43.10 [facility] [address] 61059- 8436 Dec, LLQ pain R10.32 [facility] [address] 16008- 0474 Dec, Other dorsalgia M54.89 [facility] [address] 28862- 7083 Dec, Neuropathy G62.9 [facility] [address] 25150- 3386 Dec, [facility] [address] 10750- 0029 Nov, Irritable bowel syndrome with constipation K58.1 ; Uncomplicated asthma, unspecified asthma severity J45.909 and Type 2 diabetes mellitus with diabetic autonomic (poly)neuropathy E11.43 [facility] [address] [id number] Nov, Dental examination Z01.20 [address] 07878- 1109 Nov, Other dorsalgia M54.89 [facility] [id number] [place] [address] 97596- 3614 Nov, LLQ pain R10.32 ; Low TSH level R94.6 and Gastroparesis K31.84 [facility] [address] 63677- 8586 Nov, Anorexia R63.0 [facility] [address] 52234- 0507 Nov, Asthma exacerbation J45.901 [facility] [address] 07031- 7872 Oct, PTSD (post-traumatic stress disorder) F43.10 [facility] [id number] [place] [address] 62600 2546 26 Oct, 2017 [facility] [address] 2546 Oct, PTSD (post-traumatic stress disorder) F43.10 and Tobacco dependency F17.200 [facility] [address] 16072 2546 Oct, [facility] [address] 2546 Oct, Other dorsalgia M54.89 [place] [address] 7486 Oct, Anorexia R63.0 [facility] [address] 94830 449 September, PTSD (post-traumatic stress disorder) F43.10 [place] [address] 81203 2546 September, Low TSH level R94.6 [place] [address] 05587- 0876 September, Other dorsalgia M54.89 [facility] [id number] [place] [address] 2546 September, Annual physical exam Z00.00 and Migraine without aura and without status migrainosus, not intractable G43.009 [facility] [id number] [place] [address] 61549- 6875 September, Abnormal TSH R94.6 and Dysfunction of left eustachian tube H69.82 [facility] [id number] [place] [id number] 254 Aug, [facility] [id number] [place] [address] 86072 2546 Aug, Anorexia R63.0 [facility] [address] [id number] [id number] Aug, Dental examination Z01.20 and Xerostomia K11.7 [facility] [id number] [place] [address] 00399- 8313 Aug, Neuropathy G62.9 [facility] [id number] [place] [address] 14766- 8257 Aug, [facility] [id number] [place] [address] 00663- 1894 Aug, Other dorsalgia M54.89 [place] [id number] [place] [address] 284 Aug, Type 2 diabetes mellitus with diabetic autonomic (poly) neuropathy E11.43 ; Diabetic polyneuropathy associated with type 2 diabetes mellitus E11.42 ; Bronchitis J40 ; Gastroparesis K31.84 and Reactive depression F32.9 [place] [id number] [place] [address] 07250- 9505 Aug, PTSD (post-traumatic stress disorder) F43.10 [place] [id number] [place] [address] 45164- 9819 Aug, Other dorsalgia M54.89 and Anorexia R63.0 [facility] [id number] [place] [address] 88087- 0919 Jul, [facility] [id number] [place] [address] 79216- 8022 Jul, Other dorsalgia M54.89 [facility] [id number] [place] [address] 64148- 6163 Jul, [facility] [id number] [place] [address] 348991- 0712 Jul, [facility] [id number] [place] [address] 18780- 4276 Jul, PTSD (post-traumatic stress disorder) F43.10 [facility] [address] [place] [address]- 2346 Jul, [facility] [id number] [place] [address] 97706- 6696 Jul, [facility] [id number] [place] [address] 33854 2546 Jul, [facility] [id number] [place] [address] 61669 2546 Jul, Anorexia R63.0 [facility] [id number] [place] [address] 28876 2546 Jun, [facility] [address] 54555- 3136 Jun, Vaginal discharge N89.8 ; Visit for gynecologic examination Z01.419 and Pelvic pressure in female R10.2 [facility] [id number] [place] [address] 69355- 4666 Jun, [facility] [id number] [place] [address] 67730 2542 Jun, Other dorsalgia M54.89 [facility] [id number] [place] [address] 35878 2546 16 Jun, 2017 [facility] [id number] [place] [address] 62961 2546 Jun, [facility] [id number] [place] [address] 08821 2546 Jun, [facility] [id number] [place] [address] 65168 2546 May, Back pain M54.9 [facility] [id number] [place] [address] 67667 2546 May, Anorexia R63.0 [facility] [id number] [place] [address] 77534 2546 May, Other dorsalgia M54.89 [facility] [id number] [place] [address] 08117- 6712 May, [facility] [address] 80099- 3682 May, Bronchitis J40 [facility] [address] 40813- 2758 May, Type 2 diabetes mellitus with diabetic autonomic (poly) neuropathy E11.43 ; 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 ; Back pain M54.9 and Neuropathy G62.9 [facility] [address] 38546- 8331 May, Left breast mass N63.20 [facility] [address] 20191- 4866 May, [facility] [address] 48829- 8869 Apr, Other dorsalgia M54.89 [facility] [address] 32284 2549 Apr, Anorexia R63.0 [facility] [address] 06736- 1866 Apr, Anorexia R63.0 [facility] [address] 85769 2547 Apr, Mass of left breast N63.20 [facility] [id number] [place] [address] 98393- 5323 Apr, [facility] [id number] [place] [address] 97618- 6154 Apr, [facility] [address] 07590- 8994 14 Apr, 2017 Diarrhea of presumed infectious origin A09 [facility] [address] 55141- 2261 Apr, Encounter for immunization Z23 [facility] [id number] [place] [address] 32351 2540 Apr, [facility] [id number] [place] [address] 78622- 7976 Mar, Other dorsalgia M54.89 [facility] [id number] [place] [address] 93612- 5246 Mar, [facility] [address] 49154- 7776 Mar, [facility] [id number] [place] [address] 57490- 2310 Mar, Anorexia R63.0 [facility] [id number] [place] [address] 52675- 9046 Mar, [facility] [id number] [place] [address] 00707- 1870 Mar, Other dorsalgia M54.89 [facility] [id number] [place] [address] 70287- 1929 Mar, [facility] [id number] [place] [address] 77208- 9050 Mar, Encounter for immunization Z23 [facility] [id number] [place] [address] 55771- 2141 Feb, Anorexia R63.0 [facility] [id number] [place] [address] 44272- 0535 Feb, Diabetes E11.9 [facility] [id number] [place] [address] 35546- 9255 Feb, Back pain M54.9 and Diabetes E11.9 [facility] [id number] [place] [address] 34952- 2248 Feb, Diabetes E11.9 [facility] [id number] [place] [address] 33932- 7913 Feb, Neuropathy G62.9 [facility] [id number] [place] [address] 06315- 3839 Feb, Encounter for immunization Z23 ; Epigastric pain R10.13 ; Weight loss, abnormal R63.4 and Neuropathy G62.9 [facility] [id number] [place] [address] [id number] Feb, [facility] [address] 95725- 4546 Feb, [facility] [address] 00991- 8038 Feb, Intractable vomiting with nausea, unspecified vomiting type R11.2 [facility] [id number] [place] [address] 77413 -2074 Feb, Chronic nausea R11.0 [facility] [address] 56823- 6249 Feb, Other dorsalgia M54.89 [facility] [id number] [place] [address] 38922- 3561 Jan, [facility] [address] 04189- 3959 Jan, [facility] [id number] [place] [address] 96143- 6492 Jan, [facility] [address] 83538- 9145 Jan, [facility] [id number] [place] [address] 07039- 6535 Jan, Asthma exacerbation J45.901 ; Bronchitis J40 and Neuropathy G62.9 [facility] [address] 59162- 4078 Jan, Anorexia R63.0 [facility] [id number] [place] [address] 84613- 2751 Jan, Other dorsalgia M54.89 [place] [id number] [place] [address] 59338- 7124 Dec, [facility] [id number] [place] [address] 34068- 1392 Dec, [facility] [id number] [place] [address] 96783- 6196 Dec, Anorexia R63.0 [facility] [id number] [place] [address] 24871- 8212 Dec, Primary insomnia F51.01 [facility] [id number] [place] [address] 10027- 0456 Dec, Other dorsalgia M54.89 [facility] [id number] [place] [address] 16798- 5010 Dec, [facility] [id number] [place] [address] 71216- 0205 Nov, [facility] [id number] [place] [address] 23097- 8613 Nov, [facility] [id number] [place] [address] 45068- 1270 Nov, [facility] [id number] [place] [address] 33729- 5593 Nov, History of colon polyps Z86.010 [facility] [id number] [place] [address] 82971- 7472 Nov, Weight loss R63.4 ; Nausea and vomiting, intractability of vomiting not specified, unspecified vomiting type R11.2 and Abnormal LFTs R79.89 [facility] [id number] [place] [address] 44835- 5428 Nov, [facility] [id number] [place] [address] 96592- 1032 Nov, Neuropathy G62.9 and Pain in right knee M25.561 [facility] [id number] [place] [address] 57207- 9542 12 Nov, 2016 Back pain M54.9 [facility] [id number] [place] [address] 58587- 3724 10 Nov, 2016 [facility] [id number] [place] [address] 22868- 6142 08 Nov, 2016 Bronchitis J40 [facility] [address] 37971- 0304 03 Nov, 2016 Weight loss R63.4 [facility] [id number] [place] [address] 48063- 3848 Oct, Back pain M54.9 [facility] [id number] [place] [address] 73086- 6597 16 Oct, 2016 [facility] [id number] [place] [address] 23032- 8056 Oct, Back pain M54.9 [facility] [id number] [place] [address] 80639- 6891 Oct, Type 2 diabetes mellitus without complications E11.9 and Bronchitis J40 [facility] [id number] [place] [address] 87711- 7452 Oct, [facility] [id number] [place] [address] 85195- 8857 Oct, [facility] [id number] [place] [address] 34174- 6965 September, Gastroparesis K31.84 ; Type 2 diabetes mellitus with diabetic autonomic (poly)neuropathy E11.43 and Neuropathy G62.9 [facility] [id number] [place] [address] 51299- 5417 September, Other dorsalgia M54.89 [facility] [id number] [place] [address] 50054- 3221 September, [facility] [id number] [place] [address] 04232- 1583 September, [facility] [id number] [place] [address] 58853- 4609 Aug, Gastroparesis K31.84 and Radicular leg pain M54.10 [facility] [id number] [place] [address] 78184- 6420 Aug, Anorexia R63.0 [facility] [address] 54756- 6255 Aug, Bronchitis J40 [facility] [id number] [place] [address] 09568- 0755 Aug, Back pain M54.9 [facility] [id number] [place] [address] 13322- 6801 Aug, Routine gynecological examination Z01.419 ; Routine screening for STI (sexually transmitted infection) Z11.3 and Yeast infection of the vagina B37.3 [facility] [id number] [place] [address] 04628- 9006 Jul, Other dorsalgia M54.89 [facility] [id number] [place] [address] 44599- 0192 Jul, Diabetes E11.9 and Gastroparesis K31.84 [facility] [id number] [place] [address] 12483- 7458 Jun, [facility] [id number] [place] [address] 19114- 3360 Jun, Back pain M54.9 [facility] [id number] [place] [address] 33466- 3378 Jun, Neuropathy G62.9 [facility] [id number] [place] [address] [id number] Jun, Encounter for dental examination Z01.20 [facility] [id number] [place] [address] 11725- 7757 Jun, Gastroparesis 536.3 and Anorexia R63.0 [facility] [address] 72223- 2546 May, Other dorsalgia M54.89 [facility] [address] 68739- 2546 May, Periumbilical abdominal pain R10.33 ; Weight loss R63.4 and Gastroparesis K31.84 [facility] [address] 66344 2546 May, Back pain M54.9 [facility] [address] 27573- 2546 Apr, Anorexia R63.0 [facility] [address] 99135 2546 Apr, Anorexia R63.0 [facility] [address] 13934 2546 Apr, Back pain M54.9 [facility] [address] 20163 2546 Apr, Back pain M54.9 [facility] [address] 43423 2546 Apr, [facility] [address] 45068 2546 Apr, Bronchitis J40 and Neuropathy G62.9 [facility] [address] 76564 2546 Apr, Neuropathy G62.9 [facility] [address] 02440 2546 05 Apr, 2016 [facility] [address] 72932 2546 Apr, Back pain M54.9 [facility] [address] 83880- 0214 Mar, Type 2 diabetes mellitus with diabetic autonomic (poly) neuropathy E11.43 [facility] [id number] [place] [address] 66275- 2731 Mar, Type 2 diabetes mellitus without complications E11.9 [facility] [id number] [place] [address] 08645- 2857 Mar, Neuropathy G62.9 [facility] [address] 11020- 3320 Mar, [facility] [id number] [place] [address] 62237- 9973 Mar, Breast cancer screening Z12.39 [facility] [address] 99538- 0754 Mar, Other dorsalgia M54.89 [facility] [address] 268[address]- [address]597 Feb, [facility] [id number] [place] [address] [phone] Jan, Neuropathy G62.9 ; Type 2 diabetes mellitus with diabetic autonomic (poly)neuropathy E11.43 ; Uncomplicated asthma, unspecified asthma severity J45.909 and Encounter for immunization Z23 [facility] [id number] [place] [address] [phone] Jan, [facility] [id number] [place] [address] [phone] [phone] Jan, [facility] [id number] [place] [address] [phone] Dec, [facility] [address] [address]- [address]14 Dec, [facility] [id number] [place] [address] [phone] Nov, [facility] [id number] [place] [address] [phone] Nov, Back pain M54.9 [facility] [id number] [place] [address] 01178- 2239 Nov, Neuropathy G62.9 ; Mixed hyperlipidemia E78.2 ; Type 2 diabetes mellitus with diabetic autonomic (poly)neuropathy E11.43 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 [facility] [id number] [place] [address] [phone] Oct, [facility] [address] 8[address]- [address]365 Oct, Other dorsalgia M54.89 [facility] [address] 20[address]- 8378 September, Primary insomnia F51.01 [facility] [address] 22[address]- [address]81 September, [facility] [address] 40085- 3985 Aug, Other dorsalgia M54.89 [facility] [id number] [place] [address] [phone]- [phone] Jul, [facility] [address] 36103- [address] Jul, Other dorsalgia M54.89 [facility] [id number] [place] [address] [phone]- 1812 Jul, Diabetes E11.9 ; Back pain M54.9 ; Neuropathy G62.9 and Gastroparesis K31.84 [facility] [facility] [id number] [place] [address]16- 1026 Jun, [facility] [address] [address] Jun, Other dorsalgia M54.89 [facility] [id number] [place] [address] 01746- 8201 May, [facility] [id number] [address] May, Radicular leg pain M54.10 and Other dorsalgia M54.89 [facility] [id number] [place] [address] 32603- 5369 Apr, [facility] [id number] [place] [address] 44089- 4096 Mar, [facility] [id number] [place] [address] 87921- 7423 Mar, [facility] [id number] [place] [address] 75726- 2236 Mar, Radicular leg pain M54.10 [facility] [id number] [place] [address] 45387- 5156 Feb, [facility] [id number] [place] [address] 10628- 1763 Feb, [facility] [id number] [place] [address]10- 7980 Feb, [facility] [id number] [place] [address] 45057- 4502 Jan, [facility] [id number] [place] [address] 46194- 9823 Jan, IBS (irritable bowel syndrome) 564.1 [facility] [id number] [place] [address] 68706- 3591 Jan, [facility] [id number] [place] [address] 30415- 7206 Jan, [facility] [id number] [place] [address] 43440- 7412 Jan, Diabetes mellitus without mention of complication, type II or unspecified type, not stated as uncontrolled 250.00 ; Gastroparesis 536.3 and Hypoacusis 389.9 [facility] [id number] [address] Jan, [facility] [id number] [address] Jan, [facility] [id number] [address] Dec, [facility] [id number] [address] Dec, [facility] [id number] [address] 2458 Dec, [facility] [id number] [place] [address] 75687- 7513 Dec, Back pain 724.5 and Gastroparesis 536.3 [facility] [id number], [place] [address] Nov, [facility] [id number] [place] [id number] Nov, Dental examination V72.2 [facility] [id number], [place] [address] 4[address] Nov, [facility] [id number], [place] [address] 7035 Nov, [facility] [id number], [place] [address] 0681 Nov, Depressive disorder, not elsewhere classified 311 and No condition on [place] II V71.09 [facility] [id number] [address] 8[address] Nov, Diabetes 250.00 and Symptomatic menopausal or female climacteric states 627.2 [facility] [id number] [address] Oct, [facility] [id number], [place] [address] 4[address] Oct, Lumbar strain 847.2 [facility] [id number], [place] [address] Oct, Gastroparesis 536.3 and Unspecified myalgia and myositis 729.1 [facility] [address] [facility] [id number] [address] 14 Aug, 2014 [facility] [id number] [address] 9234 Aug, [facility] [id number], [place] [address] 9813 Jul, [facility] [id number] [place] [address], [place] [address]- 2661 Jul, [facility] [id number], [place] [address]- 2423 Jul, [facility] [id number] [place] [address] 68261- 9978 Jul, [facility] [id number], [place] [address]- 6779 Jul, [facility] [id number], [place] [address]- 2786 Jun, [facility] [id number], [place] [address]- 2201 Jun, [facility] [id number], [place] [address]- 7531 Jun, [facility] [id number], [place] [address]- 6151 May, [facility] [id number], [place] [address]- 2860 May, [facility] [id number], [place] [address]- 9006 Mar, [facility] [id number] [address] Mar, [facility] [place] [facility] [address] [id number] [place] [address]- 5362 Mar, [facility] [place] [facility] [address] [id number] [place] [address]- 7203 Mar, [facility] [place] [facility] [address] [id number] [place] [address]- 1877 Mar, [facility] [place] [facility] [address] [id number] [place] [address]- 5511 Mar, [facility] [place] [facility] [address] [id number] [place] [address]- 4115 Feb, [facility] [place] [facility] [address] [id number] [place] [address]- 9248 Feb, [facility] [place] [facility] [address] [id number] [place] [address]- 7227 Nov, [facility] [place] [facility] [address] [id number] [place] [address]- 7931 Nov, [facility] [place] [facility] [address] [id number] [place] [address]- 5804 Nov, [facility] [place] [facility] [address] [id number] [place] [address]- 3260 Oct, [facility] [place] [facility] [address] [id number] [place] [address]- 3496 September, [facility] [place] [facility] [address] [id number] [place] [address]- 4772 Aug, [facility] [place] [facility] [address] [id number] [place] [address]- 0750 15 Aug, 2012 [facility] [place] [facility] [address] [id number] [place] [address]- 8276 Aug, [facility] [place] [facility] [address] [id number] [place] [address]- 6404 Aug, [facility] [place] [facility] [address] [id number] [place] [address]- 1603 Aug, [facility] [address] [id number] [place] [address]- 9830 Aug, [facility] [address] [id number] [place] [address]- 9454 Aug, [facility] [address] [facility] [id number] [place] [address]- 4213 Aug, [facility] [address] [id number] [place] [address]- 4456 Jul, [facility] [address] [id number] [place] [address]- 7508 Jul, [facility] [address] [facility] [id number] [place] [address]- 0709 Jun, [facility] [address] [facility] [id number] [place] [address]- 6172 Jun, [facility] [address] [id number], [place] [address]- 9278 Jun, [facility] [address] [facility] [id number], [place] [address]- 8114 08 Jun, 2012 [facility] [address] [facility] [id number] [place] [address]- 0678 Jun, [facility] [address] [facility] [id number], [place] [address]- 1249 Jun, [facility] [place] [facility] [address] [id number], [place] [address]- 8800 Jun, [facility] [place] [facility] [address] [id number], [place] [address]- 6327 May, [facility] [place] [facility] [address] [id number], [place] [address]- 0012 May, [facility] [place] [facility] [address] [facility] [id number], [place] [address]- 4754 May, [facility] [place] [facility] [address] [facility] [id number] [place] [address]- 3596 May, [facility] [address] [facility] [id number], [place] [address]- 3166 Mar, [facility] [address] [facility] [id number], [place] [address]- 2546 Mar, [facility] [address] [facility] [id number], [place] [address]- 2769 Jan, IMMUNIZATIONS No Known Immunizations SOCIAL HISTORY Never Assessed REASON FOR VISIT michaelalta refill PLAN OF CARE VITAL SIGNS MEDICATIONS Medication Instructions Dosage Frequency Start Date End Date Duration Status Duloxetine HCl 30 MG Orally Once a day 1 capsule 24h Dec, 30 day(s) Active Duloxetine HCl 60 MG Orally Once a day (take with 30mg) 1 capsule 30 days Active RESULTS No Results PROCEDURES [...] High blood sugar 2016 Hospitalization History DKA, vomitting-[facility] 03/05/17 Hospitalization History hospital stay at [facility] for stomach issues 2016
--- OUTSIDE RECORDS SUMMARY | 2018-05-04 15:47 | XMS REPORT ---
[facility] Address [address] [place] [address] Care Team Providers Care Speech Assistant Name Role Phone HORACE HIGGINS Unavailable PROBLEMS Type Condition ICD9-CM Code HOD21-VQ Code Onset Dates Condition Status SNOMED Code Problem Primary insomnia F51.01 Active 4699610 Problem Reactive depression F32.9 Active 59149074 Problem Asthma exacerbation J45.901 Active 175549961 Problem Irritable bowel syndrome with constipation K58.1 Active 812882975 Problem Back pain M54.9 Active 206834678 Problem Tobacco dependency F17.200 Active 52218542 Problem Low TSH level R94.6 Active 284918005 Problem PTSD (post-traumatic stress disorder) F43.10 Active 18872538 Problem Diabetic polyneuropathy associated with type 2 diabetes mellitus E11.42 Active 50484723 Problem Annual physical exam Z00.00 Active 189650559 Problem Migraine without aura and without status migrainosus, not intractable G43.009 Active 434879097 Problem Gastroparesis K31.84 Active 195028659 Problem rn long term care current use of insulin Z79.4 Active 700873635 Problem Neuropathy G62.9 Active 882215057 Problem Diabetes E11.9 Active 05392730 Problem Uncomplicated asthma, unspecified asthma severity J45.909 Active 554961395 Problem Anorexia R63.0 Active 31599519 Problem Mixed hyperlipidemia E78.2 Active 669943518 Problem Weight loss R63.4 Active 709142874 Problem Type 2 diabetes mellitus with diabetic autonomic (poly)neuropathy E11.43 Active 91562342 Problem History of colon polyps Z86.010 Active 041688214 ALLERGIES No Information ENCOUNTERS Encounter Location Date Diagnosis [facility] [address] [facility] [id number] [address] Jan, [facility] [address] [id number] [address] Jan, [facility] [id number] [place] [address] 78523- 7226 Jan, Back pain M54.9 ; Type 2 diabetes mellitus with diabetic autonomic (poly)neuropathy E11.43 ; Neuropathy G62.9 ; Irritable bowel syndrome with constipation K58.1 ; Sprain of other part of left shoulder region, initial encounter S43.492A and Dysfunction of left eustachian tube H69.82 [facility] [id number] [place] [address] 38674- 8545 Jan, [facility] [id number] [place] [address] 18275- 7616 Jan, Neuropathy G62.9 ; LLQ pain R10.32 and Other dorsalgia M54.89 [facility] [id number] [place] [address] 53050- 5731 Jan, [facility] [id number] [place] [address] 92227- 4845 Jan, [facility] [id number] [place] [address] 77089- 1637 Dec, Right upper quadrant abdominal pain R10.11 [facility] [id number] [place] [address] 57745- 1282 Dec, PTSD (post-traumatic stress disorder) F43.10 [facility] [id number] [place] [address] 01734- 4635 Dec, LLQ pain R10.32 [facility] [id number] [place] [address] 99096- 1931 Dec, Other dorsalgia M54.89 [facility] [address] [place] [address] 64261- 9011 Dec, Neuropathy G62.9 [facility] [address] [place] [address] 96930- 0098 Dec, [facility] [address] [place] [address] 11423- 9899 Nov, Irritable bowel syndrome with constipation K58.1 ; Uncomplicated asthma, unspecified asthma severity J45.909 and Type 2 diabetes mellitus with diabetic autonomic (poly)neuropathy E11.43 [facility] [address] [place] [address] [id number] Nov, Dental examination Z01.20 [place] [address] 54178- 0457 Nov, Other dorsalgia M54.89 [place] [address] 03587- 3893 Nov, LLQ pain R10.32 ; Low TSH level R94.6 and Gastroparesis K31.84 [place] [address] 64322- 4587 Nov, Anorexia R63.0 [place] [address] 77959- 4970 Nov, Asthma exacerbation J45.901 [place] [address] 42130- 5253 Oct, PTSD (post-traumatic stress disorder) F43.10 [place] [address] 56892- 0642 Oct, [place] [address] 40950- 9453 Oct, PTSD (post-traumatic stress disorder) F43.10 and Tobacco dependency F17.200 [place] [address] 66670- 9690 Oct, [place] [address] 85541- 8631 Oct, Other dorsalgia M54.89 [place] [address] 38689- 4607 04 Oct, 2017 Anorexia R63.0 [facility] [id number] [place] [address] 54796- 3142 September, PTSD (post-traumatic stress disorder) F43.10 [place] [address] [place] [address] 4077 September, Low TSH level R94.6 [place] [address] 968560- 9961 September, Other dorsalgia M54.89 [place] [address] 46116- 8032 September, Annual physical exam Z00.00 and Migraine without aura and without status migrainosus, not intractable G43.009 [place] [address] 31450- 5951 September, Abnormal TSH R94.6 and Dysfunction of left eustachian tube H69.82 [place] [address] [place] [address] 11327- 3628 Aug, [facility] [address] 38096- 7035 Aug, [address] R63.[address] [facility] [id number] [place] [address] [id number] Aug, Dental examination Z01.20 and Xerostomia K11.7 [facility] [address] 97048- 2337 Aug, Neuropathy G62.9 [facility] [address] [place] [address] 53850- 7266 Aug, [facility] [address] 16753- 8662 Aug, Other dorsalgia M54.89 [facility] [address] [place] [address] 90644- 2318 Aug, Type 2 diabetes mellitus with diabetic autonomic (poly) neuropathy E11.43 ; Diabetic polyneuropathy associated with type 2 diabetes mellitus E11.42 ; Bronchitis J40 ; Gastroparesis K31.84 and Reactive depression F32.9 [facility] [address] [id number] 2546 Aug, PTSD (post-traumatic stress disorder) F43.10 [facility] [address] 76372 2546 Aug, Other dorsalgia M54.89 and Anorexia R63.0 [facility] [address] 76041 2546 Jul, [facility] [address] 35185 2546 Jul, Other dorsalgia M54.89 [facility] [address] 24693 2546 Jul, [facility] [address] 20029 2546 Jul, [facility] [address] 57346 2546 Jul, PTSD (post-traumatic stress disorder) F43.10 [facility] [id number] [place] [address] 42429 2546 Jul, [facility] [address] 25878 2546 Jul, [facility] [address] 57992 2546 Jul, [facility] [address] 50906 2546 Jul, Anorexia R63.0 [facility] [address] 47220 2546 Jun, [facility] [id number] [place] [address] 56452 2546 Jun, Vaginal discharge N89.8 ; Visit for gynecologic examination Z01.419 and Pelvic pressure in female R10.2 [facility] [address] [place] [address] 00369- 3825 Jun, [facility] [address] [place] [address] 96318- 7050 Jun, Other dorsalgia M54.89 [facility] [address] 60157- 8136 Jun, [facility] [address] 15759- 8905 Jun, [facility] [address] 41743- 3507 Jun, [facility] [address] 41971- 2640 May, Back pain M54.9 [facility] [address] 20706- 7635 May, Anorexia R63.0 [facility] [address] 63566- 6275 May, Other dorsalgia M54.89 [facility] [id number] [place] [address] 57784- 0579 May, [facility] [id number] [place] [address] 00635- 7267 May, Bronchitis J40 [facility] [id number] [place] [address] 90095- 2748 May, Type 2 diabetes mellitus with diabetic autonomic (poly) neuropathy E11.43 ; detention current use of insulin Z79.4 ; Back pain M54.9 and Neuropathy G62.9 [facility] [address] [place] [address] 35388- 3873 May, Left breast mass N63.20 [facility] [address] 88799- 4944 May, [facility] [address] [place] [address] 23629- 1960 Apr, Other dorsalgia M54.89 [facility] [address] [place] [address] 06441 2546 Apr, Anorexia R63.0 [facility] [address] [place] [address] 58425 2546 Apr, Anorexia R63.0 [facility] [address] [place] [address] 49524 2540 Apr, Mass of left breast N63.20 [facility] [address] [place] [address] 54374- 0801 Apr, [facility] [address] [place] [address] 96011- 2402 Apr, [facility] [address] [place] [address] 15379- 4729 Apr, Diarrhea of presumed infectious origin A09 [facility] [address] 45387- 2363 Apr, Encounter for immunization Z23 [facility] [address] [place] [address] 82783- 9707 Apr, [facility] [address] [place] [address] 69492- 1159 Mar, Other dorsalgia M54.89 [facility] [address] [place] [address] 19803 2549 Mar, [facility] [address] [place] [address] 13112- 2540 Mar, [facility] [address] [place] [address] 80242- 2545 Mar, Anorexia R63.0 [facility] [address] 31065- 2071 Mar, [facility] [address] [place] [address] 84137- 8218 Mar, Other dorsalgia M54.89 [facility] [address] [place] [address] 20781- 1511 Mar, [facility] [address] [place] [address] 13684- 9250 Mar, Encounter for immunization Z23 [facility] [id number] [place] [address] 28360- 2755 Feb, Anorexia R63.0 [facility] [address] 25323- 3845 Feb, Diabetes E11.9 [facility] [address] [place] [address] 25222- 6866 Feb, Back pain M54.9 and Diabetes E11.9 [facility] [address] [place] [address] 88981- 4250 Feb, Diabetes E11.9 [facility] [address] [place] [address] 28573- 9921 Feb, Neuropathy G62.9 [facility] [address] [place] [address] 31574- 9370 Feb, Encounter for immunization Z23 ; Epigastric pain R10.13 ; Weight loss, abnormal R63.4 and Neuropathy G62.9 [facility] [id number] [place] [address] [id number] Feb, [facility] [id number] [place] [address] 82342- 9800 Feb, [facility] [address] [place] [address] 04490- 2153 Feb, Intractable vomiting with nausea, unspecified vomiting type R11.2 [facility] [id number] [place] [address] 91031 -6146 Feb, Chronic nausea R11.0 [facility] [id number] [place] [address] 44967- 0489 Feb, Other dorsalgia M54.89 [facility] [address] [place] [address] 04487- 4426 Jan, [facility] [address] 08565- 6819 Jan, [facility] [address] 10739- 9579 Jan, [facility] [address] 12323- 5637 Jan, [facility] [address] 73661- 5418 Jan, Asthma exacerbation J45.901 ; Bronchitis J40 and Neuropathy G62.9 [facility] [address] 20307- 9608 Jan, Anorexia R63.0 [facility] [address] 91928- 7607 Jan, Other dorsalgia M54.89 [facility] [id number] [place] [address] 10400- 5231 Dec, [facility] [address] 95275- 8367 Dec, [facility] [id number] [place] [address] 21911- 5744 15 Dec, 2016 Anorexia R63.0 [facility] [address] 12708- 5424 14 Dec, 2016 Primary insomnia F51.01 [facility] [id number] [place] [address] 83213- 2850 Dec, Other dorsalgia M54.89 [facility] [address] [place] [address]- 0274 Dec, [facility] [id number] [place] [address] 27264- 3539 Nov, [facility] [id number] [place] [address] 50066- 2384 Nov, [facility] [address] [place] [address] 10381- 5546 Nov, [facility] [id number] [place] [address] 30441- 8520 Nov, History of colon polyps Z86.010 [facility] [address] [place] [address] 19998- 1068 Nov, Weight loss R63.4 ; Nausea and vomiting, intractability of vomiting not specified, unspecified vomiting type R11.2 and Abnormal LFTs R79.89 [facility] [address] [place] [address] 83959- 6010 Nov, [facility] [address] [place] [address] 96612- 5743 Nov, Neuropathy G62.9 and Pain in right knee M25.561 [facility] [address] [place] [address] 67494- 7468 Nov, Back pain M54.9 [facility] [address] [place] [address] 65872- 3180 Nov, [facility] [address] [place] [address] 16483- 8594 Nov, Bronchitis J40 [facility] [address] [place] [address] 52473- 0820 Nov, Weight loss R63.4 [facility] [address] [place] [address] 79192- 5891 Oct, Back pain M54.9 [facility] [address] [place] [address] 52142- 4328 16 Oct, 2016 [facility] [address] [place] [address] 79682- 2928 14 Oct, 2016 Back pain M54.9 [facility] [address] [place] [address] 49659- 9157 13 Oct, 2016 Type 2 diabetes mellitus without complications E11.9 and Bronchitis J40 [facility] [address] 04720- 7805 Oct, [facility] [address] [place] [address] 89637- 0096 Oct, [facility] [address] [place] [address] 03092- 2253 September, Gastroparesis K31.84 ; Type 2 diabetes mellitus with diabetic autonomic (poly)neuropathy E11.43 and Neuropathy G62.9 [facility] [address] [place] [address] 24154- 2746 September, Other dorsalgia M54.89 [facility] [address] [place] [address] 78921- 2142 September, [facility] [address] [place] [address] 25328- 9163 September, [facility] [address] [place] [address] 51699- 9888 Aug, Gastroparesis K31.84 and Radicular leg pain M54.10 [facility] [address] [place] [address] 82866- 3846 Aug, Anorexia R63.0 [facility] [address] [place] [address] 95207- 7666 Aug, Bronchitis J40 [facility] [address] [place] [address] 94273- 3268 Aug, Back pain M54.9 [facility] [address] [place] [address] 49215- 3006 Aug, Routine gynecological examination Z01.419 ; Routine screening for STI (sexually transmitted infection) Z11.3 and Yeast infection of the vagina B37.3 [facility] [address] [place] [address] 28700- 7782 Jul, Other dorsalgia M54.89 [facility] [address] 94103- 4295 Jul, Diabetes E11.9 and Gastroparesis K31.84 [place] [address] 95716- 8662 Jun, [facility] [address] 60500- 4491 Jun, Back pain M54.[address] 02764- 1314 Jun, Neurop[address] G62.[address] [facility] [address] [id number] Jun, 2016 Encounter for dental examination Z01.20 [place] [address] 29232- 9724 Jun, Gastroparesis 536.3 and Anorexia R63.0 [place] [id number] [place] [address] 66892- 0336 May, Other dorsalgia M54.89 [facility] [address] 47680- 3350 May, Periumbilical abdominal pain R10.33 ; Weight loss R63.4 and Gastroparesis K31.84 [place] [address] [place] [address] 78644- 0497 May, Back pain M54.9 [facility] [address] [place] [address] 44473- 5827 Apr, Anorexia R63.0 [place] [address] [place] [address] 21293- 6064 22 Apr, 2016 Anorexia R63.0 [facility] [address] [place] [address] 83674- 6516 16 Apr, 2016 Back pain M54.9 [facility] [address] [place] [address] 79641- 9596 15 Apr, 2016 Back pain M54.9 [facility] [address] [place] [address] 67356- 4514 Apr, [facility] [address] [place] [address] 37697- 8164 Apr, Bronchitis J40 and Neuropathy G62.9 [facility] [address] [place] [address] 12860- 3032 Apr, Neuropathy G62.9 [facility] [address] [place] [address] 44224- 2825 05 Apr, 2016 [facility] [address] [place] [address] 07047- 1915 Apr, Back pain M54.9 [facility] [id number] [place] [address] [id number]- [phone] 30 Mar, 2016 Type 2 diabetes mellitus with diabetic autonomic (poly) neuropathy E11.43 [facility] [id number] [place] [address] 13698- 2754 Mar, Type 2 diabetes mellitus without complications E11.9 [facility] [id number] [place] [address] 51532 2542 Mar, Neuropathy G62.9 [facility] [id number] [place] [address] 17674- 2545 Mar, [facility] [id number] [place] [address] 68809- 9996 Mar, Breast cancer screening Z12.39 [facility] [id number] [place] [address] 04785- 2020 Mar, Other dorsalgia M54.89 [facility] [id number] [place] [address] 34218- 6379 Feb, [facility] [id number] [place] [address] 02724- 2816 Jan, Neuropathy G62.9 ; Type 2 diabetes mellitus with diabetic autonomic (poly)neuropathy E11.43 ; Uncomplicated asthma, unspecified asthma severity J45.909 and Encounter for immunization Z23 [facility] [id number] [place] [address] 42663- 3032 Jan, [facility] [address] 88075- 7396 Jan, [facility] [address] 18472- 3059 Dec, [facility] [address] [address]- 1939 Dec, [facility] [id number] [place] [address] 97733- 5676 Nov, [facility] [id number] [place] [address] 42310- 7056 Nov, Back pain M54.9 [facility] [id number] [place] [address] 53623- 6416 Nov, Neuropathy G62.9 ; Mixed hyperlipidemia E78.2 ; Type 2 diabetes mellitus with diabetic autonomic (poly)neuropathy E11.43 and rn long term care current use of insulin Z79.4 [facility] [id number] [place] [address] 35004- 3943 Oct, [facility] [address] 04015- 5950 Oct, Other dorsalgia M54.89 [facility] [id number] [place] [address] 15755- 9654 September, Primary insomnia F51.01 [facility] [id number] [place] [address] 98713- 8671 September, [facility] [id number] [place] [address] 46735- 1346 Aug, Other dorsalgia M54.89 [facility] [id number] [place] [address] 94521 2546 Jul, [facility] [id number] [place] [address] 07630- 2830 Jul, Other dorsalgia M54.89 [facility] [id number] [place] [address] 59766- 8381 Jul, Diabetes E11.9 ; Back pain M54.9 ; Neuropathy G62.9 and Gastroparesis K31.84 [facility] [id number] [place] [address] [phone]- 1075 Jun, [facility] [address] [id number] [place] [address] 78283- 8212 Jun, Other dorsalgia M54.89 [facility] [id number] [place] [address] 00042- 5473 May, [facility] [id number] [place] [address] 43905- 2006 May, Radicular leg pain M54.10 and Other dorsalgia M54.89 [facility] [id number] [place] [address] 50280- 1886 Apr, [facility] [id number] [place] [address] 79802 2546 Mar, [facility] [id number] [place] [address] 63727- 2546 Mar, [facility] [id number] [place] [address] 43264- 0509 Mar, Radicular leg pain M54.10 [facility] [id number] [address] 8[address] Feb, [facility] [id number] [place] [address] 16416- 1446 Feb, [facility] [id number] [address] Feb, [facility] [id number] [place] [address] 39319- 4566 Jan, [facility] [id number] [place] [address] 14915- 1961 Jan, IBS (irritable bowel syndrome) 564.1 [facility] [id number] [place] [address] 45707- 8022 Jan, [facility] [id number] [place] [address] 67970- 1546 Jan, [facility] [id number] [place] [address] 57811- 3210 Jan, Diabetes mellitus without mention of complication, type II or unspecified type, not stated as uncontrolled 250.00 ; Gastroparesis 536.3 and Hypoacusis 389.9 [facility] [id number] [address] 5647 Jan, [facility] [id number] [address] 3219 Jan, [facility] [id number] [address] 0604 Dec, [facility] [id number] [address] 3340 Dec, [facility] [id number] [address] 0584 Dec, [facility] [id number] [address] 4467 Dec, Back pain 724.5 and Gastroparesis 536.3 [facility] [id number] [address] 120[address] Nov, [facility] [id number] [id number] Nov, Dental examination V72.2 [facility] [id number] [address] 7438 Nov, [facility] [id number] [address] 7727 Nov, [facility] [id number] [address] 0602 Nov, Depressive disorder, not elsewhere classified 311 and No condition on [place] II V71.09 [facility] [id number] [address] 8980 Nov, Diabetes 250.00 and Symptomatic menopausal or female climacteric states 627.2 [facility] [id number] [address] 3171 Oct, [facility] [id number], [place] [address]- 7778 Oct, Lumbar strain 847.2 [facility] [id number], [place] [address]- 4226 Oct, Gastroparesis 536.3 and Unspecified myalgia and myositis 729.1 [facility] [id number], [place] [address]- 2438 Aug, [facility] [id number] [address]- 3075 Aug, [facility] [id number] [address] 6036 Jul, [facility] [id number] [address]- 8146 Jul, [facility] [id number] [place] [address] [place] [address]- 0474 Jul, [facility] [place] [facility] [address] [id number] [place] [address]- 1755 Jul, [facility] [place] [facility] [address] [id number] [place] [address]- 0677 Jul, [facility] [place] [facility] [address] [id number] [place] [address]- 7629 Jun, [facility] [place] [facility] [address] [id number] [place] [address]- 9115 Jun, [facility] [place] [facility] [address] [id number] [place] [address]- 6580 Jun, [facility] [place] [facility] [address] [id number] [place] [address]- 0697 May, [facility] [place] [facility] [address] [id number] [place] [address]- 1318 May, [facility] [place] [facility] [address] [id number] [place] [address]- 6841 Mar, [facility] [place] [facility] [address] [id number] [place] [address]- 4403 Mar, [facility] [place] [facility] [address] [id number] [place] [address]- 2626 Mar, [facility] [place] [facility] [address] [id number] [place] [address]- 5978 Mar, [facility] [place] [facility] [address] [id number] [place] [address]- 5165 Mar, [facility] [place] [facility] [address] [id number] [place] [address]- 4202 Mar, [facility] [place] [facility] [address] [id number] [place] [address]- 4515 Feb, [facility] [place] [facility] [address] [id number] [place] [address]- 3135 Feb, [facility] [place] [facility] [address] [id number] [place] [address]- 7278 Nov, [facility] [address] [id number] [place] [address]- 3347 Nov, [facility] [address] [id number] [place] [address]- 4965 Nov, [facility] [address] [id number] [place] [address]- 1797 Oct, [facility] [address] [id number] [place] [address]- 1305 September, [facility] [address] [id number] [place] [address]- 0690 Aug, [facility] [address] [id number] [place] [address]- 0834 Aug, [facility] [address] [id number] [place] [address]- 9618 Aug, [facility] [address] [id number] [place] [address]- 8107 Aug, [facility] [address] [id number] [place] [address]- 8217 Aug, [facility] [address] [id number] [place] [address]- 3426 Aug, [facility] [address] [id number] [place] [address]- 0146 Aug, [facility] [address] [id number] [place] [address]- 2256 Aug, [facility] [address] [id number] [place] [address]- 5625 Jul, [facility] [address] [id number] [place] [address]- 2296 Jul, [facility] [id number] [place] [address] 68139- 5883 Jun, [facility] [id number] [address]- 3709 Jun, [facility] [id number] [address]- 9706 Jun, [facility] [id number] [address] 08 Jun, 2012 [facility] [id number] 6120 Jun, [facility] [id number] [place] [address] 646574- 1035 Jun, [facility] [id number] [place] [address] 67560- 7581 Jun, [facility] [id number] [place] [address] 66649- 3557 May, [facility] [id number], [place] [address]- 3935 May, [facility] [id number] [place] [address] 16998- 9664 May, [facility] [id number], [place] [address]- 0282 May, [facility] [id number], [place] [address]- 3124 Mar, [facility] [id number], [place] [address]- 1507 Mar, [facility] [id number], [place] [address]- 9434 Jan, IMMUNIZATIONS No Known Immunizations SOCIAL HISTORY Never Assessed REASON FOR VISIT Controlled Med Refill 01/02 PLAN OF CARE VITAL SIGNS MEDICATIONS Medication Instructions Dosage Frequency Start Date End Date Duration Status Oxycodone-Acetaminophen 10-325 MG Orally 4 times a day 1 tablet as needed 6h Dec, 28 days Active RESULTS No Results PROCEDURES [...] Hospitalization History hospital stay at [facility] for stomach issues 2016
--- OUTSIDE RECORDS SUMMARY | 2018-05-04 15:47 | XMS REPORT ---
Author Author HORACE HIGGINS [facility] Address [address] [place] [address] Care Team Providers Care Transportation Program Director Name Role Phone HORACE HIGGINS Unavailable PROBLEMS Type Condition ICD9-CM Code [id number] Code Onset Dates Condition Status SNOMED Code Problem Primary insomnia F51.01 Active 1133674 Problem Reactive depression F32.9 Active 86402801 Problem Asthma exacerbation J45.901 Active 318668886 Problem Irritable bowel syndrome with constipation K58.1 Active 846696060 Problem Back pain M54.9 Active 194481615 Problem Tobacco dependency F17.200 Active 38774102 Problem Low TSH level R94.6 Active 682458375 Problem PTSD (post-traumatic stress disorder) F43.10 Active 74742609 Problem Diabetic polyneuropathy associated with type 2 diabetes mellitus E11.42 Active 52710366 Problem Annual physical exam Z00.00 Active 959267033 Problem Migraine without aura and without status migrainosus, not intractable G43.009 Active 391936538 Problem Gastroparesis K31.84 Active 844191904 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 Active 864679971 Problem Neuropathy G62.9 Active 441111121 Problem Diabetes E11.9 Active 71382760 Problem Uncomplicated asthma, unspecified asthma severity J45.909 Active 587202065 Problem Anorexia R63.0 Active 92232231 Problem Mixed hyperlipidemia E78.2 Active 547786244 Problem Weight loss R63.4 Active 807045627 Problem Type 2 diabetes mellitus with diabetic autonomic (poly)neuropathy E11.43 Active 91664167 Problem History of colon polyps Z86.010 Active [id number] ALLERGIES No Information ENCOUNTERS Encounter Location Date Diagnosis [facility] [address] [facility] [id number] [address] Jan, [facility] [address] [id number] [address] Jan, [facility] [id number] [place] [address] 48577- 0939 Jan, Back pain M54.9 ; Type 2 diabetes mellitus with diabetic autonomic (poly)neuropathy E11.43 ; Neuropathy G62.9 ; Irritable bowel syndrome with constipation K58.1 ; Sprain of other part of left shoulder region, initial encounter S43.492A and Dysfunction of left eustachian tube H69.82 [facility] [id number] [place] [address] 30135- 1871 Jan, [facility] [id number] [place] [address] 02753- 5480 Jan, Neuropathy G62.9 ; LLQ pain R10.32 and Other dorsalgia M54.89 [facility] [id number] [place] [address] 59621- 1205 Jan, [facility] [id number] [place] [address] 68783- 6423 Jan, [facility] [id number] [place] [address] 60271- 7833 Dec, Right upper quadrant abdominal pain R10.11 [facility] [id number] [place] [address] 93729- 8880 Dec, PTSD (post-traumatic stress disorder) F43.10 [facility] [id number] [place] [address] 97347- 7810 Dec, LLQ pain R10.32 [facility] [id number] [place] [address] 67189- 6051 Dec, Other dorsalgia M54.89 [facility] [id number] [place] [address] 47533- 3784 Dec, Neuropathy G62.9 [facility] [id number] [place] [address] 62740- 1296 Dec, [facility] [id number] [place] [address] 92510- 9185 Nov, Irritable bowel syndrome with constipation K58.1 ; Uncomplicated asthma, unspecified asthma severity J45.909 and Type 2 diabetes mellitus with diabetic autonomic (poly)neuropathy E11.43 [facility] [id number] [place] [address] [id number] Nov, Dental examination Z01.20 [place] [address] 96957- 9700 Nov, Other dorsalgia M54.89 [place] [address] 64834- 1569 Nov, LLQ pain R10.32 ; Low TSH level R94.6 and Gastroparesis K31.84 [place] [address] 50955- 8182 Nov, Anorexia R63.0 [place] [address] 30920- 3928 Nov, Asthma exacerbation J45.901 [place] [address] 89459- 6243 Oct, PTSD (post-traumatic stress disorder) F43.10 [place] [address] 74515- 5956 Oct, [place] [address] 35387- 4870 Oct, PTSD (post-traumatic stress disorder) F43.10 and Tobacco dependency F17.200 [place] [address] 92119- 6059 Oct, [place] [address] 92671- 5255 Oct, Other dorsalgia M54.89 [place] [address] 59742- 3649 04 Oct, 2017 Anorexia R63.0 [facility] [id number] [place] [address] 20765- 6063 September, PTSD (post-traumatic stress disorder) F43.10 [place] [id number] [place] [id number] September, Low TSH level R94.6 [place] [address] 939897- 3237 September, Other dorsalgia M54.89 [place] [address] 34083- 2843 September, Annual physical exam Z00.00 and Migraine without aura and without status migrainosus, not intractable G43.009 [place] [address] 73069- 6852 September, Abnormal TSH R94.6 and Dysfunction of left eustachian tube H69.82 [place] [id number] [place] [address] 51161- 2878 Aug, [facility] [address] 26378- 3930 Aug, Anorexia R63.0 [facility] [id number] [place] [address] [id number] Aug, Dental examination Z01.20 and Xerostomia K11.7 [facility] [address] 50159- 5725 Aug, Neuropathy G62.9 [facility] [id number] [place] [address] 64539- 9410 Aug, [facility] [address] 46440- 7907 Aug, Other dorsalgia M54.89 [facility] [id number] [place] [address] 49972- 0740 Aug, Type 2 diabetes mellitus with diabetic autonomic (poly) neuropathy E11.43 ; Diabetic polyneuropathy associated with type 2 diabetes mellitus E11.42 ; Bronchitis J40 ; Gastroparesis K31.84 and Reactive depression F32.9 [facility] [id number] 2546 Aug, PTSD (post-traumatic stress disorder) F43.10 [facility] [address] 30557 2546 Aug, Other dorsalgia M54.89 and Anorexia R63.0 [facility] [address] 33801 2546 Jul, [facility] [address] 75139 2546 Jul, Other dorsalgia M54.89 [facility] [address] 77751 2546 Jul, [facility] [address] 94699 2546 Jul, [facility] [address] 94442 2546 Jul, PTSD (post-traumatic stress disorder) F43.10 [facility] [id number] [place] [address] 40113 2546 Jul, [facility] [address] 30595 2546 Jul, [facility] [address] 78988 2546 Jul, [facility] [address] 83894 2546 Jul, Anorexia R63.0 [facility] [address] 13024 2546 Jun, [facility] [id number] [place] [address] 91526 2546 Jun, Vaginal discharge N89.8 ; Visit for gynecologic examination Z01.419 and Pelvic pressure in female R10.2 [facility] [id number] [place] [address] 88254- 7042 Jun, [facility] [id number] [place] [address] 92171- 8438 Jun, Other dorsalgia M54.89 [facility] [address] 00416- 0776 Jun, [facility] [address] 16735- 4969 Jun, [facility] [address] 78333- 1949 Jun, [facility] [address] 65842- 8376 May, Back pain M54.9 [facility] [address] 29779- 9167 May, Anorexia R63.0 [facility] [address] 58352- 4095 May, Other dorsalgia M54.89 [facility] [id number] [place] [address] 96448- 0151 May, [facility] [id number] [place] [address] 39016- 2940 May, Bronchitis J40 [facility] [id number] [place] [address] 77085- 4494 May, Type 2 diabetes mellitus with diabetic autonomic (poly) neuropathy E11.43 ; 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 ; Back pain M54.9 and Neuropathy G62.9 [facility] [id number] [place] [address] 25284- 8984 May, Left breast mass N63.20 [facility] [address] 32591- 9932 May, [facility] [id number] [place] [address] 82780- 2213 Apr, Other dorsalgia M54.89 [facility] [id number] [place] [address] 08339 2546 Apr, Anorexia R63.0 [facility] [id number] [place] [address] 42279 2546 Apr, Anorexia R63.0 [facility] [id number] [place] [address] 77566 2543 Apr, Mass of left breast N63.20 [facility] [id number] [place] [address] 29755- 6846 Apr, [facility] [id number] [place] [address] 72164- 9341 Apr, [facility] [id number] [place] [address] 22256- 3359 Apr, Diarrhea of presumed infectious origin A09 [facility] [address] 12584- 3914 Apr, Encounter for immunization Z23 [facility] [id number] [place] [address] 89152- 9445 Apr, [facility] [id number] [place] [address] 82392- 7852 Mar, Other dorsalgia M54.89 [facility] [id number] [place] [address] 54279 254 Mar, [facility] [id number] [place] [address] 36305- 2543 Mar, [facility] [id number] [place] [address] 95400- 2544 Mar, Anorexia R63.0 [facility] [address] 39073- 1981 Mar, [facility] [id number] [place] [address] 11043- 0227 Mar, Other dorsalgia M54.89 [facility] [id number] [place] [address] 15253- 7130 Mar, [facility] [id number] [place] [address] 56214- 3607 Mar, Encounter for immunization Z23 [facility] [id number] [place] [address] 54970- 5272 Feb, Anorexia R63.0 [facility] [address] 35355- 1524 Feb, Diabetes E11.9 [facility] [id number] [place] [address] 28030- 6330 Feb, Back pain M54.9 and Diabetes E11.9 [facility] [id number] [place] [address] 97300- 3013 Feb, Diabetes E11.9 [facility] [id number] [place] [address] 88307- 2658 Feb, Neuropathy G62.9 [facility] [id number] [place] [address] 27091- 2311 Feb, Encounter for immunization Z23 ; Epigastric pain R10.13 ; Weight loss, abnormal R63.4 and Neuropathy G62.9 [facility] [id number] [place] [address] [id number] Feb, [facility] [id number] [place] [address] 79445- 6076 Feb, [facility] [id number] [place] [address] 08544- 1768 Feb, Intractable vomiting with nausea, unspecified vomiting type R11.2 [facility] [id number] [place] [address] 87658 -5963 Feb, Chronic nausea R11.0 [facility] [id number] [place] [address] 67510- 6731 Feb, Other dorsalgia M54.89 [facility] [id number] [place] [address] 52597- 6103 Jan, [facility] [address] 94518- 0959 Jan, [facility] [address] 36860- 8673 Jan, [facility] [address] 99856- 4914 Jan, [facility] [address] 49592- 6419 Jan, Asthma exacerbation J45.901 ; Bronchitis J40 and Neuropathy G62.9 [facility] [address] 61281- 2808 Jan, Anorexia R63.0 [facility] [address] 59510- 6941 Jan, Other dorsalgia M54.89 [facility] [id number] [place] [address] 16133- 1974 Dec, [facility] [address] 99035- 0012 Dec, [facility] [id number] [place] [address] 40401- 0547 15 Dec, 2016 Anorexia R63.0 [facility] [address] 80981- 3930 14 Dec, 2016 Primary insomnia F51.01 [facility] [id number] [place] [address] 40380- 9965 Dec, Other dorsalgia M54.89 [facility] [address] [place] [address]- 5772 Dec, [facility] [id number] [place] [address] 95475- 0619 Nov, [facility] [id number] [place] [address] 70025- 9416 Nov, [facility] [id number] [place] [address] 23501- 1326 Nov, [facility] [id number] [place] [address] 97027- 0324 Nov, History of colon polyps Z86.010 [facility] [id number] [place] [address] 69635- 6747 Nov, Weight loss R63.4 ; Nausea and vomiting, intractability of vomiting not specified, unspecified vomiting type R11.2 and Abnormal LFTs R79.89 [facility] [id number] [place] [address] 75512- 1443 Nov, [facility] [id number] [place] [address] 47246- 6129 Nov, Neuropathy G62.9 and Pain in right knee M25.561 [facility] [id number] [place] [address] 59114- 4305 Nov, Back pain M54.9 [facility] [id number] [place] [address] 33651- 0423 Nov, [facility] [id number] [place] [address] 75742- 9923 Nov, Bronchitis J40 [facility] [id number] [place] [address] 46450- 1085 Nov, Weight loss R63.4 [facility] [id number] [place] [address] 65621- 9332 Oct, Back pain M54.9 [facility] [id number] [place] [address] 65682- 6730 16 Oct, 2016 [facility] [id number] [place] [address] 10497- 9157 14 Oct, 2016 Back pain M54.9 [facility] [id number] [place] [address] 79649- 8403 13 Oct, 2016 Type 2 diabetes mellitus without complications E11.9 and Bronchitis J40 [facility] [address] 19824- 2644 Oct, [facility] [id number] [place] [address] 13221- 7540 Oct, [facility] [id number] [place] [address] 98234- 2718 September, Gastroparesis K31.84 ; Type 2 diabetes mellitus with diabetic autonomic (poly)neuropathy E11.43 and Neuropathy G62.9 [facility] [id number] [place] [address] 43201- 9669 September, Other dorsalgia M54.89 [facility] [id number] [place] [address] 27458- 0923 September, [facility] [id number] [place] [address] 47797- 5328 September, [facility] [id number] [place] [address] 06920- 6803 Aug, Gastroparesis K31.84 and Radicular leg pain M54.10 [facility] [id number] [place] [address] 02520- 4894 Aug, Anorexia R63.0 [facility] [id number] [place] [address] 78218- 5948 Aug, Bronchitis J40 [facility] [id number] [place] [address] 87991- 0537 Aug, Back pain M54.9 [facility] [id number] [place] [address] 02127- 7138 Aug, Routine gynecological examination Z01.419 ; Routine screening for STI (sexually transmitted infection) Z11.3 and Yeast infection of the vagina B37.3 [facility] [id number] [place] [address] 88529- 1655 Jul, Other dorsalgia M54.89 [facility] [address] 28777- 8921 Jul, Diabetes E11.9 and Gastroparesis K31.84 [place] [address] 34358- 9357 Jun, [facility] [address] 53977- 7333 Jun, Back pain M54.[address] 60854- 0226 Jun, Neuropathy G62.9 [facility] [address] [id number] Jun, 2016 Encounter for dental examination Z01.20 [place] [address] 07984- 4611 Jun, Gastroparesis 536.3 and Anorexia R63.0 [place] [id number] [place] [address] 13934- 7884 May, Other dorsalgia M54.89 [facility] [address] 31020- 7289 May, Periumbilical abdominal pain R10.33 ; Weight loss R63.4 and Gastroparesis K31.84 [place] [id number] [place] [address] 34264- 4239 May, Back pain M54.9 [facility] [id number] [place] [address] 66272- 9254 Apr, Anorexia R63.0 [place] [id number] [place] [address] 07634- 6807 22 Apr, 2016 Anorexia R63.0 [facility] [id number] [place] [address] 72379- 5476 16 Apr, 2016 Back pain M54.9 [facility] [id number] [place] [address] 05412- 5336 15 Apr, 2016 Back pain M54.9 [facility] [id number] [place] [address] 36139- 8438 Apr, [facility] [id number] [place] [address] 66764- 3199 Apr, Bronchitis J40 and Neuropathy G62.9 [facility] [id number] [place] [address] 68588- 8486 Apr, Neuropathy G62.9 [facility] [id number] [place] [address] 83642- 9526 05 Apr, 2016 [facility] [id number] [place] [address] 35204- 2505 Apr, Back pain M54.9 [facility] [id number] [place] [address] 88368- 0922 30 Mar, 2016 Type 2 diabetes mellitus with diabetic autonomic (poly) neuropathy E11.43 [facility] [id number] [place] [address] 61502- 4553 Mar, Type 2 diabetes mellitus without complications E11.9 [facility] [id number] [place] [address] 26604 2543 Mar, Neuropathy G62.9 [facility] [id number] [place] [address] 88390- 2545 Mar, [facility] [id number] [place] [address] 10406- 6730 Mar, Breast cancer screening Z12.39 [facility] [id number] [place] [address] 07406- 9833 Mar, Other dorsalgia M54.89 [facility] [id number] [place] [address] 45254- 4710 Feb, [facility] [id number] [place] [address] 14681- 4317 Jan, Neuropathy G62.9 ; Type 2 diabetes mellitus with diabetic autonomic (poly)neuropathy E11.43 ; Uncomplicated asthma, unspecified asthma severity J45.909 and Encounter for immunization Z23 [facility] [id number] [place] [address] 94080- 2549 Jan, [facility] [address] 51553- 7922 Jan, [facility] [address] 53193- 0134 Dec, [facility] [address] 88469- 9612 Dec, [facility] [address] [id number] [place] [address] 05700- 0572 Nov, [facility] [id number] [place] [address] 49558- 3465 Nov, Back pain M54.9 [facility] [id number] [place] [address] 95190- 7879 Nov, Neuropathy G62.9 ; Mixed hyperlipidemia E78.2 ; Type 2 diabetes mellitus with diabetic autonomic (poly)neuropathy E11.43 and 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 [facility] [id number] [place] [address] 69043- 5405 Oct, [facility] [address] 6[address]39- [address]11 Oct, Other dorsalgia M54.89 [facility] [id number] [place] [address] 31435- 1752 September, Primary insomnia F51.01 [facility] [id number] [place] [address] 63488- 7160 September, [facility] [id number] [place] [address] 74703- 0376 Aug, Other dorsalgia M54.89 [facility] [id number] [place] [address] 06601 2546 Jul, [facility] [id number] [place] [address] 13430- 7668 Jul, Other dorsalgia M54.89 [facility] [id number] [place] [address] 51801- 0126 Jul, Diabetes E11.9 ; Back pain M54.9 ; Neuropathy G62.9 and Gastroparesis K31.84 [facility] [id number] [place] [address] 87299- 1435 Jun, [facility] [id number] [place] [address] 03445- 5763 Jun, Other dorsalgia M54.89 [facility] [id number] [place] [address] 84296- 3117 May, [facility] [id number] [place] [address] 26550- 5437 May, Radicular leg pain M54.10 and Other dorsalgia M54.89 [facility] [id number] [place] [address] 28244- 7387 Apr, [facility] [facility] [id number] [place] [address]505 2546 Mar, [facility] [id number] [place] [address] 25698- 2546 Mar, [facility] [id number] [place] [address] 78088- 5578 Mar, Radicular leg pain M54.10 [facility] [address], [place] [address] 15[address] Feb, [facility] [id number] [place] [address] 90599- 3654 Feb, [facility] [id number] [address] 75[address] Feb, [facility] [id number] [place] [address] 99961- 2641 Jan, [facility] [id number] [place] [address] 31046- 2124 Jan, IBS (irritable bowel syndrome) 564.1 [facility] [id number] [place] [address] 34836- 6818 Jan, [facility] [id number] [place] [address] 39555- 5866 Jan, [facility] [id number] [place] [address] 55738- 2500 Jan, Diabetes mellitus without mention of complication, type II or unspecified type, not stated as uncontrolled 250.00 ; Gastroparesis 536.3 and Hypoacusis 389.9 [facility] [address], [place] [address] 6239 Jan, [facility] [address], [place] [address] 0761 Jan, [facility] [address], [place] [address] 3676 Dec, [facility] [address], [place] [address] 9856 Dec, [facility] [address], [place] [address] 1390 Dec, [facility] [address], [place] [address]32 Dec, Back pain 724.5 and Gastroparesis 536.3 [facility] [id number], [place] [address]287 Nov, [facility] [id number] [id number] Nov, Dental examination V72.2 [facility] [id number], [place] [address] 2494 Nov, [facility] [address], [place] [address] 8664 Nov, [facility] [address], [place] [address] 4515 Nov, Depressive disorder, not elsewhere classified 311 and No condition on [place] II V71.09 [facility] [address], [place] [address] 6938 Nov, Diabetes 250.00 and Symptomatic menopausal or female climacteric states 627.2 [facility] [address], [place] [address] 6909 Oct, [facility] [address], [place] [address] 9872 Oct, Lumbar strain 847.2 [facility] [address], [place] [address] 2246 Oct, Gastroparesis 536.3 and Unspecified myalgia and myositis 729.1 [facility] [address], [place] [address] 4677 Aug, [facility] [address], [place] [address] 8844 Aug, [facility] [address] [id number] [address] Jul, [facility] [id number], [place] [address] 8439 Jul, [facility] [id number] [place] [address] [place] [address]- 4438 Jul, [facility] [place] [facility] [address] [id number] [place] [address] 9099 Jul, [facility] [place] [facility] [address] [id number] [place] [address]- 8647 Jul, [facility] [place] [facility] [address] [id number] [place] [address]- 2285 Jun, [facility] [place] [facility] [address] [id number] [place] [address]- 1586 Jun, [facility] [place] [facility] [address] [id number] [place] [address]- 9976 Jun, [facility] [place] [facility] [address] [id number] [place] [address]- 6724 May, [facility] [place] [facility] [address] [id number] [place] [address]- 5898 May, [facility] [place] [facility] [address] [id number] [place] [address]- 7306 Mar, [facility] [place] [facility] [address] [id number] [place] [address]- 9709 Mar, [facility] [place] [facility] [address] [id number] [place] [address]- 8242 Mar, [facility] [place] [facility] [address] [id number] [place] [address]- 7194 Mar, [facility] [place] [facility] [address] [id number] [place] [address]- 1053 Mar, [facility] [place] [facility] [address] [id number] [place] [address]- 6048 Mar, [facility] [place] [facility] [address] [id number] [place] [address]- 7535 Feb, [facility] [place] [facility] [address] [id number] [place] [address]- 8525 Feb, [facility] [place] [facility] [address] [id number] [place] [address]- 8220 Nov, [facility] [address] [id number] [place] [address]- 0587 Nov, [facility] [address] [id number] [place] [address]- 0191 Nov, [facility] [address] [id number] [place] [address]- 2220 Oct, [facility] [address] [id number] [place] [address]- 8195 September, [facility] [address] [id number] [place] [address]- 2921 Aug, [facility] [address] [id number] [place] [address]- 1842 Aug, [facility] [address] [id number] [place] [address]- 8055 Aug, [facility] [address] [id number] [place] [address]- 6100 Aug, [facility] [address] [id number] [place] [address]- 4593 Aug, [facility] [address] [id number] [place] [address]- 2452 Aug, [facility] [address] [id number] [place] [address]- 8357 Aug, [facility] [address] [id number] [place] [address]- 5103 Aug, [facility] [address] [id number] [place] [address]- 2189 Jul, [facility] [address] [id number] [place] [address]- 6425 Jul, [facility] [id number] [place] [address] 71448- 5387 Jun, [facility] [address], [place] [address]- 6719 Jun, [facility] [address], [place] [address]- 2756 Jun, [facility] [address], [place] [address]- 2146 08 Jun, 2012 [facility] [id number] [place] [address] 54553- 3495 Jun, [facility] [id number] [place] [address] 77773- 8087 Jun, [facility] [id number] [place] [address] 436218- 8276 Jun, [facility] [id number] [place] [address] 64774- 5661 May, [facility] [id number] [place] [address] 59655- 6181 May, [facility] [id number] [place] [address] 83592- 9409 May, [facility] [address], [place] [address]- 1382 May, [facility] [id number] [place] [address] 21618- 4654 Mar, [facility] [address], [place] [address]- 5544 Mar, [facility] [address], [place] [address]- 3609 Jan, IMMUNIZATIONS No Known Immunizations SOCIAL HISTORY [...] vomitting-[facility] 03/05/17 Hospitalization History hospital stay at [facility] for stomach issues 2016
--- OUTSIDE RECORDS SUMMARY | 2018-05-04 15:48 | XMS REPORT ---
Author Author HORACE HIGGINS [facility] Address [address] [place] [address] Care Team Providers Care Sas Statistical Programmer Name Role Phone HORACE HIGGINS Unavailable PROBLEMS Type Condition ICD9-CM Code VMR56-IJ Code Onset Dates Condition Status SNOMED Code Problem Primary insomnia F51.01 Active 0846135 Problem Reactive depression F32.9 Active 17778918 Problem Asthma exacerbation J45.901 Active 639842682 Problem Irritable bowel syndrome with constipation K58.1 Active 856195074 Problem Back pain M54.9 Active 157662140 Problem Tobacco dependency F17.200 Active 93198461 Problem Low TSH level R94.6 Active 527395947 Problem PTSD (post-traumatic stress disorder) F43.10 Active 70824962 Problem Diabetic polyneuropathy associated with type 2 diabetes mellitus E11.42 Active 71924155 Problem Annual physical exam Z00.00 Active 935588435 Problem Migraine without aura and without status migrainosus, not intractable G43.009 Active 314863330 Problem Gastroparesis K31.84 Active 912264166 Problem 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 current use of insulin Z79.4 Active 051818104 Problem Neuropathy G62.9 Active 131479311 Problem Diabetes E11.9 Active 84059085 Problem Uncomplicated asthma, unspecified asthma severity J45.909 Active 648755082 Problem Anorexia R63.0 Active 91024098 Problem Mixed hyperlipidemia E78.2 Active 161290828 Problem Weight loss R63.4 Active 032176349 Problem Type 2 diabetes mellitus with diabetic autonomic (poly)neuropathy E11.43 Active 34230172 Problem History of colon polyps Z86.010 Active 254296145 ALLERGIES No Information ENCOUNTERS Encounter Location Date Diagnosis [facility] [address] [facility] [id number] [address] Jan, [facility] [address] [id number] [address] Jan, [facility] [id number] [place] [address] 80614- 8668 Jan, Back pain M54.9 ; Type 2 diabetes mellitus with diabetic autonomic (poly)neuropathy E11.43 ; Neuropathy G62.9 ; Irritable bowel syndrome with constipation K58.1 ; Sprain of other part of left shoulder region, initial encounter S43.492A and Dysfunction of left eustachian tube H69.82 [facility] [id number] [place] [address] 32002- 2134 Jan, [facility] [id number] [place] [address] 71357- 5557 Jan, Neuropathy G62.9 ; LLQ pain R10.32 and Other dorsalgia M54.89 [facility] [id number] [place] [address] 89561- 1365 Jan, [facility] [id number] [place] [address] 75323- 6416 Jan, [facility] [id number] [place] [address] 98067- 1356 Dec, Right upper quadrant abdominal pain R10.11 [facility] [id number] [place] [address] 17087- 9209 Dec, PTSD (post-traumatic stress disorder) F43.10 [facility] [id number] [place] [address] 49404- 9560 Dec, LLQ pain R10.32 [facility] [id number] [place] [address] 88202- 2453 Dec, Other dorsalgia M54.89 [facility] [id number] [place] [address] 97394- 7694 Dec, Neuropathy G62.9 [facility] [id number] [place] [address] 05836- 8686 Dec, [facility] [id number] [place] [address] 57936- 7738 Nov, Irritable bowel syndrome with constipation K58.1 ; Uncomplicated asthma, unspecified asthma severity J45.909 and Type 2 diabetes mellitus with diabetic autonomic (poly)neuropathy E11.43 [facility] [address] [place] [address] [id number] Nov, Dental examination Z01.20 [place] [address] 55785- 6033 Nov, Other dorsalgia M54.89 [place] [address] 45071- 5725 Nov, LLQ pain R10.32 ; Low TSH level R94.6 and Gastroparesis K31.84 [place] [address] 88252- 4371 Nov, Anorexia R63.0 [place] [address] 24602- 7545 Nov, Asthma exacerbation J45.901 [place] [address] 85377- 5325 Oct, PTSD (post-traumatic stress disorder) F43.10 [place] [address] 50943- 6698 Oct, [place] [address] 32471- 8072 Oct, PTSD (post-traumatic stress disorder) F43.10 and Tobacco dependency F17.200 [place] [address] 29863- 1688 Oct, [place] [address] 39976- 3939 Oct, Other dorsalgia M54.89 [place] [address] 23012- 8199 04 Oct, 2017 Anorexia R63.0 [facility] [id number] [place] [address] 31242- 4670 September, PTSD (post-traumatic stress disorder) F43.10 [place] [id number] [place] [address] 8462 September, Low TSH level R94.6 [place] [address] 999311- 0478 September, Other dorsalgia M54.89 [place] [address] 48875- 0346 September, Annual physical exam Z00.00 and Migraine without aura and without status migrainosus, not intractable G43.009 [place] [address] 06757- 6514 September, Abnormal TSH R94.6 and Dysfunction of left eustachian tube H69.82 [place] [id number] [place] [address] 38620- 3116 Aug, [facility] [address] 96048- 0975 Aug, Anorexia R63.0 [facility] [id number] [place] [address] [id number] Aug, Dental examination Z01.20 and Xerostomia K11.7 [facility] [address] 79877- 0130 Aug, Neuropathy G62.9 [facility] [id number] [place] [address] 14475- 2300 Aug, [facility] [address] 35106- 6456 Aug, Other dorsalgia M54.89 [facility] [id number] [place] [address] 37846- 9332 Aug, Type 2 diabetes mellitus with diabetic autonomic (poly) neuropathy E11.43 ; Diabetic polyneuropathy associated with type 2 diabetes mellitus E11.42 ; Bronchitis J40 ; Gastroparesis K31.84 and Reactive depression F32.9 [facility] [id number] 2546 Aug, PTSD (post-traumatic stress disorder) F43.10 [facility] [address] 16049 2546 Aug, Other dorsalgia M54.89 and Anorexia R63.0 [facility] [address] 24326 2546 Jul, [facility] [address] 29666 2546 Jul, Other dorsalgia M54.89 [facility] [address] 86263 2546 Jul, [facility] [address] 25027 2546 Jul, [facility] [address] 73130 2546 Jul, PTSD (post-traumatic stress disorder) F43.10 [facility] [id number] [place] [address] 03572 2546 Jul, [facility] [address] 01736 2546 Jul, [facility] [address] 24909 2546 Jul, [facility] [address] 66820 2546 Jul, Anorexia R63.0 [facility] [address] 62559 2546 Jun, [facility] [id number] [place] [address] 91120 2546 Jun, Vaginal discharge N89.8 ; Visit for gynecologic examination Z01.419 and Pelvic pressure in female R10.2 [facility] [id number] [place] [address] 52610- 4118 Jun, [facility] [id number] [place] [address] 41006- 6488 Jun, Other dorsalgia M54.89 [facility] [address] 13866- 5546 Jun, [facility] [address] 78685- 6100 Jun, [facility] [address] 23643- 9009 Jun, [facility] [address] 74851- 9552 May, Back pain M54.9 [facility] [address] 68099- 4295 May, Anorexia R63.0 [facility] [address] 97081- 6396 May, Other dorsalgia M54.89 [facility] [id number] [place] [address] 64759- 1917 May, [facility] [id number] [place] [address] 75334- 8899 May, Bronchitis J40 [facility] [id number] [place] [address] 04441- 6317 May, Type 2 diabetes mellitus with diabetic autonomic (poly) neuropathy E11.43 ; 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 ; Back pain M54.9 and Neuropathy G62.9 [facility] [id number] [place] [address] 34170- 7349 May, Left breast mass N63.20 [facility] [address] 65349- 4666 May, [facility] [id number] [place] [address] 15180- 9773 Apr, Other dorsalgia M54.89 [facility] [id number] [place] [address] 78932 2546 Apr, Anorexia R63.0 [facility] [id number] [place] [address] 14364 2546 Apr, Anorexia R63.0 [facility] [id number] [place] [address] 56396 2541 Apr, Mass of left breast N63.20 [facility] [id number] [place] [address] 48521- 3293 Apr, [facility] [id number] [place] [address] 01549- 8457 Apr, [facility] [id number] [place] [address] 81424- 1930 Apr, Diarrhea of presumed infectious origin A09 [facility] [address] 78829- 8588 Apr, Encounter for immunization Z23 [facility] [id number] [place] [address] 94881- 2132 Apr, [facility] [id number] [place] [address] 60822- 8620 Mar, Other dorsalgia M54.89 [facility] [id number] [place] [address] 42945 2542 Mar, [facility] [id number] [place] [address] 84149- 2541 Mar, [facility] [id number] [place] [address] 80231- 2545 Mar, Anorexia R63.0 [facility] [address] 14275- 0681 Mar, [facility] [id number] [place] [address] 21190- 3156 Mar, Other dorsalgia M54.89 [facility] [id number] [place] [address] 32616- 8689 Mar, [facility] [id number] [place] [address] 11872- 2702 Mar, Encounter for immunization Z23 [facility] [id number] [place] [address] 50409- 7058 Feb, Anorexia R63.0 [facility] [address] 82462- 3185 Feb, Diabetes E11.9 [facility] [id number] [place] [address] 00723- 5447 Feb, Back pain M54.9 and Diabetes E11.9 [facility] [id number] [place] [address] 37016- 6931 Feb, Diabetes E11.9 [facility] [id number] [place] [address] 50641- 6937 Feb, Neuropathy G62.9 [facility] [id number] [place] [address] 80692- 4496 Feb, Encounter for immunization Z23 ; Epigastric pain R10.13 ; Weight loss, abnormal R63.4 and Neuropathy G62.9 [facility] [id number] [place] [address] [id number] Feb, [facility] [id number] [place] [address] 87440- 2555 Feb, [facility] [id number] [place] [address] 31928- 9448 Feb, Intractable vomiting with nausea, unspecified vomiting type R11.2 [facility] [id number] [place] [address] 32878 -3377 Feb, Chronic nausea R11.0 [facility] [id number] [place] [address] 79657- 5457 Feb, Other dorsalgia M54.89 [facility] [id number] [place] [address] 60333- 4519 Jan, [facility] [address] 40697- 5906 Jan, [facility] [address] 71834- 6702 Jan, [facility] [address] 33687- 3368 Jan, [facility] [address] 64770- 2953 Jan, Asthma exacerbation J45.901 ; Bronchitis J40 and Neuropathy G62.9 [facility] [address] 01049- 7744 Jan, Anorexia R63.0 [facility] [address] 47167- 1197 Jan, Other dorsalgia M54.89 [facility] [id number] [place] [address] 00951- 1948 Dec, [facility] [address] 59660- 1548 Dec, [facility] [id number] [place] [address] 78212- 8763 15 Dec, 2016 Anorexia R63.0 [facility] [address] 87110- 8576 14 Dec, 2016 Primary insomnia F51.01 [facility] [id number] [place] [address] 19779- 2672 Dec, Other dorsalgia M54.89 [facility] [address] [place] [address]- 2996 Dec, [facility] [id number] [place] [address] 08954- 4116 Nov, [facility] [id number] [place] [address] 66565- 4542 Nov, [facility] [id number] [place] [address] 31300- 7301 Nov, [facility] [id number] [place] [address] 82501- 6036 Nov, History of colon polyps Z86.010 [facility] [id number] [place] [address] 07857- 6390 Nov, Weight loss R63.4 ; Nausea and vomiting, intractability of vomiting not specified, unspecified vomiting type R11.2 and Abnormal LFTs R79.89 [facility] [id number] [place] [address] 98551- 5020 Nov, [facility] [id number] [place] [address] 96054- 8977 Nov, Neuropathy G62.9 and Pain in right knee M25.561 [facility] [id number] [place] [address] 12615- 7825 Nov, Back pain M54.9 [facility] [id number] [place] [address] 67708- 3507 Nov, [facility] [id number] [place] [address] 72459- 5959 Nov, Bronchitis J40 [facility] [id number] [place] [address] 74940- 6963 Nov, Weight loss R63.4 [facility] [id number] [place] [address] 70233- 6614 Oct, Back pain M54.9 [facility] [id number] [place] [address] 42160- 5695 16 Oct, 2016 [facility] [id number] [place] [address] 56746- 7738 14 Oct, 2016 Back pain M54.9 [facility] [id number] [place] [address] 43633- 6788 13 Oct, 2016 Type 2 diabetes mellitus without complications E11.9 and Bronchitis J40 [facility] [address] 45647- 1622 Oct, [facility] [id number] [place] [address] 42104- 0982 Oct, [facility] [id number] [place] [address] 35397- 7547 September, Gastroparesis K31.84 ; Type 2 diabetes mellitus with diabetic autonomic (poly)neuropathy E11.43 and Neuropathy G62.9 [facility] [id number] [place] [address] 75771- 7467 September, Other dorsalgia M54.89 [facility] [id number] [place] [address] 16318- 8476 September, [facility] [id number] [place] [address] 76358- 8045 September, [facility] [id number] [place] [address] 04387- 4506 Aug, Gastroparesis K31.84 and Radicular leg pain M54.10 [facility] [id number] [place] [address] 06652- 1305 Aug, Anorexia R63.0 [facility] [id number] [place] [address] 30126- 0798 Aug, Bronchitis J40 [facility] [id number] [place] [address] 59102- 1645 Aug, Back pain M54.9 [facility] [id number] [place] [address] 96282- 9421 Aug, Routine gynecological examination Z01.419 ; Routine screening for STI (sexually transmitted infection) Z11.3 and Yeast infection of the vagina B37.3 [facility] [id number] [place] [address] 30319- 3774 Jul, Other dorsalgia M54.89 [facility] [address] 56445- 5160 Jul, Diabetes E11.9 and Gastroparesis K31.84 [place] [address] 43655- 1447 Jun, [facility] [address] 33624- 7299 Jun, Back pain M54.[address] 74237- 9932 Jun, Neuropathy G62.9 [facility] [address] [id number] Jun, 2016 Encounter for dental examination Z01.20 [place] [address] 97573- 6174 Jun, Gastroparesis 536.3 and Anorexia R63.0 [place] [id number] [place] [address] 74931- 8961 May, Other dorsalgia M54.89 [facility] [address] 75668- 9869 May, Periumbilical abdominal pain R10.33 ; Weight loss R63.4 and Gastroparesis K31.84 [place] [id number] [place] [address] 66264- 9644 May, Back pain M54.9 [facility] [id number] [place] [address] 32831- 9801 Apr, Anorexia R63.0 [place] [id number] [place] [address] 75190- 2788 22 Apr, 2016 Anorexia R63.0 [facility] [id number] [place] [address] 42611- 4576 16 Apr, 2016 Back pain M54.9 [facility] [id number] [place] [address] 86032- 9056 15 Apr, 2016 Back pain M54.9 [facility] [id number] [place] [address] 07667- 1410 Apr, [facility] [id number] [place] [address] 61067- 1937 Apr, Bronchitis J40 and Neuropathy G62.9 [facility] [id number] [place] [address] 67033- 1093 Apr, Neuropathy G62.9 [facility] [id number] [place] [address] 99419- 5899 05 Apr, 2016 [facility] [id number] [place] [address] 83391- 5611 Apr, Back pain M54.9 [facility] [id number] [place] [address] 45925- 8298 30 Mar, 2016 Type 2 diabetes mellitus with diabetic autonomic (poly) neuropathy E11.43 [facility] [id number] [place] [address] 38144- 3177 Mar, Type 2 diabetes mellitus without complications E11.9 [facility] [address] [place] [address] 47234 2542 Mar, Neuropathy G62.9 [facility] [id number] [place] [address] 23121- 2542 Mar, [facility] [address] [place] [address] 94771- 5150 Mar, Breast cancer screening Z12.39 [facility] [id number] [place] [address] 73154- 8628 Mar, Other dorsalgia M54.89 [facility] [id number] [place] [address] 39724- 3828 Feb, [facility] [id number] [place] [address] 20106- 2788 Jan, Neuropathy G62.9 ; Type 2 diabetes mellitus with diabetic autonomic (poly)neuropathy E11.43 ; Uncomplicated asthma, unspecified asthma severity J45.909 and Encounter for immunization Z23 [facility] [id number] [place] [address] 77651- 2276 Jan, [facility] [address] 17741- 3635 Jan, [facility] [address] 95693- 1041 Dec, [facility] [address] 03387- 0446 Dec, [facility] [id number] [place] [address] 64135- 3285 Nov, [facility] [id number] [place] [address] 33337- 4429 Nov, Back pain M54.9 [facility] [id number] [place] [address] 06889- 2971 Nov, Neuropathy G62.9 ; Mixed hyperlipidemia E78.2 ; Type 2 diabetes mellitus with diabetic autonomic (poly)neuropathy E11.43 and 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 current use of insulin Z79.4 [facility] [id number] [place] [address] 17851- 6223 Oct, [facility] [address] 07557- 9926 Oct, Other dorsalgia M54.89 [facility] [id number] [place] [address] 34874- 7468 September, Primary insomnia F51.01 [facility] [id number] [place] [address] 83530- 1406 September, [facility] [id number] [place] [address] 09286- 5159 Aug, Other dorsalgia M54.89 [facility] [id number] [place] [address] 53953 2546 Jul, [facility] [id number] [place] [address] 85561- 7408 Jul, Other dorsalgia M54.89 [facility] [id number] [place] [address] 02079- 5120 Jul, Diabetes E11.9 ; Back pain M54.9 ; Neuropathy G62.9 and Gastroparesis K31.84 [facility] [id number] [place] [address] 68818- 3976 Jun, [facility] [id number] [place] [address] 45333- 1128 Jun, Other dorsalgia M54.89 [facility] [id number] [place] [address] 79229- 8263 May, [facility] [id number] [place] [address] 12543- 5695 May, Radicular leg pain M54.10 and Other dorsalgia M54.89 [facility] [id number] [place] [address] [phone]- 1286 Apr, [facility] [id number] [place] [address] [id number] Mar, [facility] [id number] [place] [address] [id number]- [id number] Mar, [facility] [id number] [place] [address] [id number]- 6756 Mar, Radicular leg pain M54.10 [facility] [id number] [address] Feb, [facility] [id number] [place] [address] [id number]- 6754 Feb, [facility] [id number] [address] Feb, [facility] [id number] [place] [address] 58545- 4750 Jan, [facility] [id number] [place] [address] [id number]- 1459 Jan, IBS (irritable bowel syndrome) 564.1 [facility] [id number] [place] [address] 66026- 7091 Jan, [facility] [id number] [place] [address] [address] Jan, [facility] [id number] [place] [address]- [address] Jan, Diabetes mellitus without mention of complication, type II or unspecified type, not stated as uncontrolled 250.00 ; Gastroparesis 536.3 and Hypoacusis 389.9 [facility] [id number] [address] Jan, [facility] [address] [address] Jan, [facility] [address] [address] Dec, [facility] [id number] [address] Dec, [facility] [id number] [address] Dec, [facility] [id number] [address] Dec, Back pain 724.5 and Gastroparesis 536.3 [facility] [id number] [address] Nov, [facility] [id number] [id number] Nov, Dental examination V72.2 [facility] [id number] [address] Nov, [facility] [address] [address] Nov, [facility] [id number], [place] [address] Nov, Depressive disorder, not elsewhere classified 311 and No condition on Somis II V71.09 [facility] [id number] [address] Nov, Diabetes 250.00 and Symptomatic menopausal or female climacteric states 627.2 [facility] [id number] [address] Oct, [facility] [address], [place] [address] Oct, Lumbar strain 847.2 [facility] [id number], [place] [address] Oct, Gastroparesis 536.3 and Unspecified myalgia and myositis 729.1 [facility] [id number], [place] [address] Aug, [facility] [id number], [place] [address]66 Aug, [facility] [id number] [id number] Jul, [facility] [id number] [address] Jul, [facility] [id number] [place] [address] [place] [address] Jul, [facility] [place] [facility] [address] [id number] [place] [address]- [address] Jul, [facility] [place] [facility] [address] [id number] [place] [address]- [address]67 Jul, [facility] [place] [facility] [address] [id number] [place] [address]- [address] Jun, [facility] [place] [facility] [address] [id number] [place] [address]- 0[address] Jun, [facility] [place] [facility] [address] [id number] [place] [address]- 0448 Jun, [facility] [place] [facility] [address] [id number] [place] [address]- 3296 May, [facility] [place] [facility] [address] [id number] [place] [address]- 4[address] May, [facility] [place] [facility] [address] [id number] [place] [address]- 3579 Mar, [facility] [place] [facility] [address] [id number] [place] [address]- [address] Mar, [facility] [place] [facility] [address] [id number] [place] [address]- 7414 Mar, [facility] [place] [facility] [address] [id number] [place] [address]- 6880 Mar, [facility] [place] [facility] [address] [id number] [place] [address]- 39[address] Mar, [facility] [place] [facility] [address] [id number] [place] [address] 8858 Mar, [facility] [place] [facility] [address] [id number] [place] [address]- 4418 Feb, [facility] [place] [facility] [address] [id number] [place] [address]- 39[address] Feb, [facility] [place] [facility] [address] [id number] [place] [address]- 7009 Nov, [facility] [address] [id number] [place] [address]- 9754 Nov, [facility] [address] [id number] [place] [address]- 9519 Nov, [facility] [address] [id number] [place] [address]- 0816 Oct, [facility] [address] [id number] [place] [address]- 8181 September, [facility] [address] [id number] [place] [address]- 5[address] Aug, [facility] [address] [id number] [place] [address]- 1200 Aug, [facility] [address] [id number] [place] [address]- 6283 Aug, [facility] [address] [id number] [place] [address]- 6313 Aug, [facility] [address] [id number] [place] [address]- 7260 Aug, [facility] [address] [id number] [place] [address]- 0217 Aug, [facility] [address] [id number] [place] [address]- 1934 Aug, [facility] [address] [id number] [place] [address]- 1388 Aug, [facility] [address] [id number] [place] [address]- 2051 Jul, [facility] [address] [id number] [place] [address]- 3108 Jul, [facility] [address] [id number] [place] [address]- 8583 Jun, [facility] [address], [place] [address]- [address] Jun, [facility] [id number] [place] [address]- 2776 Jun, [facility] [id number], [place] [address] 9[address] Jun, [facility] [id number] [place] [address] 718281- 1234 Jun, [facility] [id number] [place] [address] 826454- 8309 Jun, [facility] [id number] [place] [address]24[address]- 5443 Jun, [facility] [id number] [place] [address] 769[address]- 8644 May, [facility] [id number] [place] [address]- 2185 May, [facility] [id number] [place] [address] 85268- 5166 May, [facility] [address], [place] [address]- [address] May, [facility] [id number] [place] [address] 94667- 2744 Mar, [facility] [id number], [place] [address]- 2984 Mar, [facility] [id number], [place] [address]- [address] Jan, IMMUNIZATIONS No Known Immunizations SOCIAL HISTORY [...]
--- OUTSIDE RECORDS SUMMARY | 2018-05-04 15:49 | XMS REPORT ---
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 Name Role Phone LILIAN LERNER Unavailable PROBLEMS Type Condition ICD9-CM Code BKX73-IC Code Onset Dates Condition Status SNOMED Code Problem Primary insomnia F51.01 Active 0045307 Problem Reactive depression F32.9 Active 49105666 Problem Asthma exacerbation J45.901 Active 462505977 Problem Irritable bowel syndrome with constipation K58.1 Active 589660012 Problem Back pain M54.9 Active 069920788 Problem Tobacco dependency F17.200 Active 69892308 Problem Low TSH level R94.6 Active 609631705 Problem PTSD (post-traumatic stress disorder) F43.10 Active 31134840 Problem Diabetic polyneuropathy associated with type 2 diabetes mellitus E11.42 Active 50819143 Problem Annual physical exam Z00.00 Active 907551276 Problem Migraine without aura and without status migrainosus, not intractable G43.009 Active 878505001 Problem Gastroparesis K31.84 Active 743565161 Problem FDC current use of insulin Z79.4 Active 979151154 Problem Neuropathy G62.9 Active 888565873 Problem Diabetes E11.9 Active 04806453 Problem Uncomplicated asthma, unspecified asthma severity J45.909 Active 957081395 Problem Anorexia R63.0 Active 13436502 Problem Mixed hyperlipidemia E78.2 Active 226339340 Problem Weight loss R63.4 Active 744158878 Problem Type 2 diabetes mellitus with diabetic autonomic (poly)neuropathy E11.43 Active 53529420 Problem History of colon polyps Z86.010 Active 671564922 ALLERGIES Substance Reaction Event Type Date Status Coumadin vomitied blood Drug Allergy Nov, Active Toradol swells, itch from inside out Drug Allergy Nov, Active Nsaids (non-steroidal Anti-inflammatory Drug) triggers asthma, can't breathe, swells form inside out. Non Drug Allergy Nov, Active ENCOUNTERS Encounter Location Date Diagnosis [facility] [id number] [place] [address] 47731- 3813 18 Jan, 2018 [facility] [address] 72790- 8025 18 Jan, 2018 [facility] [id number] [place] [address] 57984- 7473 17 Jan, 2018 [facility] [address] 72125- 9710 10 Jan, 2018 Back pain M54.9 ; Type 2 diabetes mellitus with diabetic autonomic (poly)neuropathy E11.43 ; Neuropathy G62.9 ; Irritable bowel syndrome with constipation K58.1 ; Sprain of other part of left shoulder region, initial encounter S43.492A and Dysfunction of left eustachian tube H69.82 [place] [address] 09938- 6541 06 Jan, 2018 [place] [address] 98893- 6843 05 Jan, 2018 Neuropathy G62.9 ; LLQ pain R10.32 and Other dorsalgia M54.89 [place] [address] 53257- 2796 Jan, [place] [id number] [place] [address] 21025- 9901 Jan, [place] [address] 57319- 7169 Dec, Right upper quadrant abdominal pain R10.11 [place] [id number] [place] [address] 46396- 1734 Dec, PTSD (post-traumatic stress disorder) F43.10 [place] [id number] [place] [address] 59033- 9001 Dec, LLQ pain R10.32 [place] [address] 88202- 7729 Dec, Other dorsalgia M54.89 [facility] [id number] [place] [address] 44453- 0007 Dec, Neuropathy G62.9 [place] [address] 90057- 1394 Dec, [facility] [address] 67146- 6833 Nov, Irritable bowel syndrome with constipation K58.1 ; Uncomplicated asthma, unspecified asthma severity J45.909 and Type 2 diabetes mellitus with diabetic autonomic (poly)neuropathy E11.43 [facility] [address] [id number] Nov, Dental examination Z01.20 [place] [address] 14829- 1139 Nov, Other dorsalgia M54.89 [place] [address] 77598- 1861 Nov, LLQ pain R10.32 ; Low TSH level R94.6 and Gastroparesis K31.84 [place] [address] 99579- 6488 Nov, Anorexia R63.0 [place] [address] 46155- 4650 Nov, Asthma exacerbation J45.901 [place] [address] 90810- 1644 Oct, PTSD (post-traumatic stress disorder) F43.10 [place] [address] 45211- 3608 Oct, [place] [address] 24154- 2999 Oct, PTSD (post-traumatic stress disorder) F43.10 and Tobacco dependency F17.200 [place] [address] 20080- 1493 Oct, [facility] [id number] [place] [address] 64300- 1655 Oct, Other dorsalgia M54.89 [facility] [address] 8[address]5020- 7455 Oct, Anorexia R63.0 [facility] [address] 45945- 9595 September, PTSD (post-traumatic stress disorder) F43.10 [facility] [address] 037387- 0815 September, Low TSH level R94.6 [facility] [address] 13789- 0143 September, Other dorsalgia M54.89 [facility] [address] 63770- 7194 September, Annual physical exam Z00.00 and Migraine without aura and without status migrainosus, not intractable G43.009 [facility] [id number] [place] [address] 01360- 3476 September, Abnormal TSH R94.6 and Dysfunction of left eustachian tube H69.82 [facility] [id number] [place] [address] 00545- 6197 Aug, [facility] [id number] [place] [address] 76333- 2903 Aug, Anorexia R63.0 [facility] [id number] [place] [address] [id number] Aug, Dental examination Z01.20 and Xerostomia K11.7 [facility] [address] 97034- 2599 Aug, Neuropathy G62.9 [facility] [address] 49786- 6246 Aug, [facility] [address] [place] [address] 79182- 0748 Aug, Other dorsalgia M54.89 [facility] [id number] [place] [address] 88536 2546 Aug, Type 2 diabetes mellitus with diabetic autonomic (poly) neuropathy E11.43 ; Diabetic polyneuropathy associated with type 2 diabetes mellitus E11.42 ; Bronchitis J40 ; Gastroparesis K31.84 and Reactive depression F32.9 [facility] [id number] [place] [address] 02172 2546 Aug, PTSD (post-traumatic stress disorder) F43.10 [facility] [id number] [place] [address] 51752- 6626 Aug, Other dorsalgia M54.89 and Anorexia R63.0 [facility] [id number] [place] [address] 01517- 0826 Jul, [facility] [id number] [place] [address] 26354- 3124 Jul, Other dorsalgia M54.89 [facility] [id number] [place] [address] 67982- 4816 Jul, [facility] [id number] [place] [address] 59069- 1256 Jul, [facility] [id number] [place] [address] 03895- 6421 Jul, PTSD (post-traumatic stress disorder) F43.10 [facility] [address] [place] [address] 51064- 1936 Jul, [facility] [id number] [place] [address] 51536- 0386 Jul, [facility] [id number] [place] [address] 20726- 8646 Jul, [facility] [id number] [place] [address] 01055- 8113 Jul, Anorexia R63.0 [facility] [id number] [place] [address] 28355- 0166 Jun, [facility] [id number] [place] [address] 58198 2546 Jun, Vaginal discharge N89.8 ; Visit for gynecologic examination Z01.419 and Pelvic pressure in female R10.2 [facility] [address] 53461- 4626 Jun, [facility] [id number] [place] [address] 17704- 2426 Jun, Other dorsalgia M54.89 [facility] [id number] [place] [address] 27177- 1836 16 Jun, 2017 [facility] [address] 38420- 7936 Jun, [facility] [id number] [place] [address] 47282- 0616 Jun, [facility] [id number] [place] [address] 31287- 5388 May, Back pain M54.9 [facility] [id number] [place] [address] 30774 2546 May, Anorexia R63.0 [facility] [id number] [place] [address] 88062- 9411 May, Other dorsalgia M54.89 [facility] [id number] [place] [address] 76999- 8496 May, [facility] [id number] [place] [address] 34804 2546 May, Bronchitis J40 [facility] [id number] [place] [address] 88853- 1756 May, Type 2 diabetes mellitus with diabetic autonomic (poly) neuropathy E11.43 ; 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 ; Back pain M54.9 and Neuropathy G62.9 [facility] [address] 68201- 8361 May, Left breast mass N63.20 [facility] [address] 33533- 2083 May, [facility] [address] 90656- 2299 Apr, Other dorsalgia M54.89 [facility] [address] 30645- 4846 Apr, Anorexia R63.0 [facility] [address] 50152- 1959 Apr, Anorexia R63.0 [facility] [address] 18376- 2245 Apr, Mass of left breast N63.20 [facility] [address] 25090- 1850 Apr, [facility] [address] 43438- 1982 Apr, [facility] [address] 71617- 3073 Apr, Diarrhea of presumed infectious origin A09 [facility] [address] 47634- 0172 Apr, Encounter for immunization Z23 [facility] [address] 45528- 3131 Apr, [facility] [address] 96048- 4991 Mar, Other dorsalgia M54.89 [facility] [address] 58679- 7557 Mar, [facility] [id number] [place] [address] 72585- 1971 Mar, [facility] [address] 41785- 4599 Mar, Anorexia R63.0 [facility] [id number] [place] [address] 04665- 5037 Mar, [facility] [address] 95425- 7101 Mar, Other dorsalgia M54.89 [facility] [address] 33842- 9309 Mar, [facility] [id number] [place] [address] 11451- 3615 Mar, Encounter for immunization Z23 [facility] [address] 28245- 3519 Feb, Anorexia R63.0 [facility] [id number] [place] [address] 30007- 7041 Feb, Diabetes E11.9 [facility] [address] 31125- 7495 Feb, Back pain M54.9 and Diabetes E11.9 [facility] [id number] [place] [address] 84572- 1205 Feb, Diabetes E11.9 [facility] [id number] [place] [address] 15492- 6724 Feb, Neuropathy G62.9 [facility] [id number] [place] [address] 93668- 2842 Feb, Encounter for immunization Z23 ; Epigastric pain R10.13 ; Weight loss, abnormal R63.4 and Neuropathy G62.9 [facility] [id number] [place] [address] [id number] Feb, [facility] [address] [place] [address]- 3137 Feb, [facility] [id number] [place] [address] 60370- 7933 Feb, Intractable vomiting with nausea, unspecified vomiting type R11.2 [facility] [id number] [place] [address] 58527 -0597 Feb, Chronic nausea R11.0 [facility] [address] 46925- 0801 Feb, Other dorsalgia M54.89 [facility] [address] 85921- 2752 Jan, [facility] [address] 19405- 4580 Jan, [facility] [address] 48382- 2509 Jan, [facility] [address] 22816- 3068 Jan, [facility] [address] 69439- 1028 Jan, Asthma exacerbation J45.901 ; Bronchitis J40 and Neuropathy G62.9 [facility] [id number] [place] [address] 51682- 7361 Jan, Anorexia R63.0 [facility] [address] 61962- 0755 Jan, Other dorsalgia M54.89 [facility] [id number] [place] [address] 91385- 6414 Dec, [facility] [address] 46619- 5536 Dec, [facility] [id number] [place] [address] 65215- 2836 Dec, Anorexia R63.0 [facility] [address] [address]- 4598 Dec, Primary insomnia F51.01 [facility] [id number] [place] [address] 28036- 8344 Dec, Other dorsalgia M54.89 [facility] [id number] [place] [address] 67204- 7594 Dec, [facility] [id number] [place] [address] 63975- 3920 Nov, [facility] [id number] [place] [address] 58259- 9893 Nov, [facility] [id number] [place] [address] 68740- 9173 Nov, [facility] [id number] [place] [address] 66022- 7837 Nov, History of colon polyps Z86.010 [facility] [id number] [place] [address] 92455- 0670 Nov, Weight loss R63.4 ; Nausea and vomiting, intractability of vomiting not specified, unspecified vomiting type R11.2 and Abnormal LFTs R79.89 [facility] [address] [place] [address] 03445- 3432 Nov, [facility] [address] [place] [address] 37119- 2574 Nov, Neuropathy G62.9 and Pain in right knee M25.561 [facility] [address] [place] [address] 74234- 7951 Nov, Back pain M54.9 [facility] [id number] [place] [address] 23423- 7339 Nov, [facility] [address] [address]- 2668 Nov, Bronchitis J40 [facility] [id number] [place] [address] 85857- 9210 Nov, Weight loss R63.4 [facility] [id number] [place] [address] 55414- 3397 Oct, Back pain M54.9 [facility] [id number] [place] [address] 24657- 3065 16 Oct, 2016 [facility] [id number] [place] [address] 96326- 7778 14 Oct, 2016 Back pain M54.9 [facility] [id number] [place] [address] 29152- 4465 Oct, Type 2 diabetes mellitus without complications E11.9 and Bronchitis J40 [facility] [id number] [place] [address] 40237- 6745 Oct, [facility] [id number] [place] [address] 40867- 0828 Oct, [facility] [id number] [place] [address] 89458- 1350 September, Gastroparesis K31.84 ; Type 2 diabetes mellitus with diabetic autonomic (poly)neuropathy E11.43 and Neuropathy G62.9 [facility] [address] [address]- 7310 September, Other dorsalgia M54.89 [facility] [id number] [place] [address] 40099- 7402 September, [facility] [address] [place] [address] 84215- 3381 September, [facility] [id number] [place] [address] 00843- 6568 Aug, Gastroparesis K31.84 and Radicular leg pain M54.10 [facility] [address] [address]- 5856 Aug, Anorexia R63.0 [place] [id number] [place] [address] 23334- 2869 20 Aug, 2016 Bronchitis J40 [facility] [address] 64167- 0504 19 Aug, 2016 Back pain M54.9 [place] [id number] [place] [address] 53866- 2780 04 Aug, 2016 Routine gynecological examination Z01.419 ; Routine screening for STI (sexually transmitted infection) Z11.3 and Yeast infection of the vagina B37.3 [place] [id number] [place] [address] 01117- 3880 Jul, Other dorsalgia M54.89 [place] [id number] [place] [address] 31306- 9534 Jul, Diabetes E11.9 and Gastroparesis K31.84 [place] [address] 51977- 8761 Jun, [facility] [id number] [place] [address] 59063- 0265 24 Jun, 2016 Back pain M54.9 [place] [id number] [place] [address] 80314- 2426 14 Jun, 2016 Neuropathy G62.9 [facility] [id number] [place] [address] [id number] 02 Jun, 2016 Encounter for dental examination Z01.20 [facility] [id number] [place] [address] 12161- 2497 Jun, Gastroparesis 536.3 and Anorexia R63.0 [place] [address] 37462- 4480 May, Other dorsalgia M54.89 [place] [id number] [place] [address] 62118- 4199 May, Periumbilical abdominal pain R10.33 ; Weight loss R63.4 and Gastroparesis K31.84 [facility] [id number] [place] [address] 23129 2546 May, Back pain M54.9 [facility] [id number] [place] [address] 02220- 2546 Apr, Anorexia R63.0 [facility] [address] 75712- 2546 Apr, Anorexia R63.0 [facility] [address] 57949- 2546 Apr, Back pain M54.9 [facility] [address] 40048 2546 Apr, Back pain M54.9 [facility] [address] 59267 2546 Apr, [facility] [address] 89473 2546 Apr, Bronchitis J40 and Neuropathy G62.9 [facility] [address] 49137 2546 Apr, Neuropathy G62.9 [facility] [id number] [place] [address] 75005 2546 Apr, [facility] [id number] [place] [address] 40822 2546 Apr, Back pain M54.9 [facility] [id number] [place] [address] 90351 2546 Mar, Type 2 diabetes mellitus with diabetic autonomic (poly) neuropathy E11.43 [facility] [id number] [place] [address] 23679 2546 Mar, Type 2 diabetes mellitus without complications E11.9 [facility] [id number] [place] [address] 64503 2546 Mar, Neuropathy G62.9 [facility] [id number] [place] [address] 64012- 6584 Mar, [place] [address] 98979- 1492 Mar, Breast cancer screening Z12.39 [facility] [facility] [id number] [place] [address] 89663- 6924 Mar, Other dorsalgia M54.89 [place] [address] 25179- 0763 Feb, [facility] [facility] [id number] [place] [address] 15463- 0995 Jan, Neuropathy G62.9 ; Type 2 diabetes mellitus with diabetic autonomic (poly)neuropathy E11.43 ; Uncomplicated asthma, unspecified asthma severity J45.909 and Encounter for immunization Z23 [place] [address] 18464- 6810 Jan, [place] [id number] [place] [address] 53130- 2356 Jan, [place] [id number] [place] [address] 99222- 1713 Dec, [place] [id number] [place] [address] 31898- 2118 Dec, [place] [id number] [place] [address] 71359- 7771 Nov, [place] [id number] [place] [address] 98129- 2862 Nov, Back pain M54.9 [place] [id number] [place] [address] 57625- 4248 Nov, Neuropathy G62.9 ; Mixed hyperlipidemia E78.2 ; Type 2 diabetes mellitus with diabetic autonomic (poly)neuropathy E11.43 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 [place] [id number] [place] [address] 05941- 2684 Oct, [facility] [id number] [place] [address] 82539- 8127 Oct, Other dorsalgia M54.89 [facility] [id number] [place] [address] 15386- 1439 September, Primary insomnia F51.01 [facility] [id number] [place] [address] 55085- 2658 September, [facility] [id number] [place] [address] 67013- 5031 Aug, Other dorsalgia M54.89 [facility] [id number] [place] [address] 75645- 9085 Jul, [facility] [id number] [place] [address] 49158- 9170 Jul, Other dorsalgia M54.89 [facility] [id number] [place] [address] 48915- 7333 Jul, Diabetes E11.9 ; Back pain M54.9 ; Neuropathy G62.9 and Gastroparesis K31.84 [facility] [id number] [place] [address] 20718- 9068 Jun, [facility] [id number] [place] [address] 73168- 3590 Jun, Other dorsalgia M54.89 [facility] [id number] [place] [address] 57105- 1715 May, [facility] [id number] [place] [address] 72779- 2779 May, Radicular leg pain M54.10 and Other dorsalgia M54.89 [facility] [address] [id number] [place] [address] 23034- 8411 Apr, [facility] [id number] [place] [address] 34324- 1717 Mar, [facility] [address] [address] 00[address] Mar, [facility] [id number] [place] [address] 17717- 9831 Mar, Radicular leg pain M54.10 [facility] [id number] [place] [address] 15593- 3364 Feb, [facility] [id number] [place] [address] 84219- 6402 Feb, [facility] [id number] [place] [address] 73263- 9500 Feb, [facility] [id number] [place] [address] 86071- 0046 Jan, [facility] [id number] [place] [address] 10158- 5045 Jan, IBS (irritable bowel syndrome) 564.1 [facility] [id number] [place] [address] 90219- 4354 Jan, [facility] [id number] [place] [address] 76348- 7511 Jan, [facility] [id number] [place] [address] 43892- 3628 Jan, Diabetes mellitus without mention of complication, type II or unspecified type, not stated as uncontrolled 250.00 ; Gastroparesis 536.3 and Hypoacusis 389.9 [facility] [address] [address] 7351 Jan, [facility] [id number] [place] [address] 93335- 7843 Jan, [facility] [id number] [address] 5290 Dec, [facility] [id number] [place] [address] [id number]- 2347 Dec, [facility] [address] [address] 5596 Dec, [facility] [address] [address] 1067 Dec, Back pain 724.5 and Gastroparesis 536.3 [facility] [address] [address] 54[address] Nov, [facility] [address] [id number] Nov, Dental examination V72.2 [facility] [id number] [place] [address] 08562- 9259 Nov, [facility] [id number] [place] [address] 22375- 2286 Nov, [facility] [id number] [place] [address] 88296- 8597 Nov, Depressive disorder, not elsewhere classified 311 and No condition on [place] II V71.09 [facility] [id number] [place] [address] 04114- 5438 Nov, Diabetes 250.00 and Symptomatic menopausal or female climacteric states 627.2 [facility] [address] [address] 6886 Oct, [facility] [id number] [place] [address] 03349- 1561 Oct, Lumbar strain 847.2 [facility] [id number] [address] 5031 Oct, Gastroparesis 536.3 and Unspecified myalgia and myositis 729.1 [facility] [address] [address] 7833 14 Aug, 2014 [facility] [id number] [place] [address] 68451- 0905 Aug, [facility] [place] [facility] [address] [id number] [place] [address]- 0842 Jul, [facility] [place] [facility] [address] [id number] [place] [address]- 1097 Jul, [facility] [place] [facility] [address] [id number] [place] [address]- 8933 Jul, [facility] [place] [facility] [address] [id number] [place] [address]- 6182 Jul, [facility] [place] [facility] [address] [id number] [place] [address]- 5403 Jul, [facility] [place] [facility] [address] [id number] [place] [address]- 3763 Jun, [facility] [place] [facility] [address] [id number] [place] [address]- 9113 Jun, [facility] [place] [facility] [address] [id number] [place] [address]- 0839 Jun, [facility] [place] [facility] [address] [id number] [place] [address]- 0050 May, [facility] [place] [facility] [address] [id number] [place] [address]- 0456 May, [facility] [place] [facility] [address] [id number] [place] [address]- 1418 Mar, [facility] [place] [facility] [address] [id number] [place] [address]- 5169 Mar, [facility] [place] [facility] [address] [id number] [place] [address]- 9259 Mar, [facility] [place] [facility] [address] [id number] [place] [address]- 4943 Mar, [facility] [place] [facility] [address] [id number] [place] [address]- 3185 Mar, [facility] [place] [facility] [address] [id number] [place] [address]- 3919 Mar, [facility] [address] [id number] [place] [address]- 7495 Feb, [facility] [address] [id number] [place] [address]- 3828 Feb, [facility] [address] [id number] [place] [address]- 6632 Nov, [facility] [address] [id number] [place] [address]- 1531 Nov, [facility] [address] [id number] [place] [address]- 9301 Nov, [facility] [address] [id number] [place] [address]- 8230 Oct, [facility] [address] [id number] [place] [address]- 6218 September, [facility] [address] [id number] [place] [address]- 1691 Aug, [facility] [address] [id number] [place] [address]- 8451 Aug, [facility] [address] [id number] [place] [address]- 1737 Aug, [facility] [address] [id number] [place] [address]- 4625 Aug, [facility] [address] [id number] [place] [address]- 0782 Aug, [facility] [address] [id number] [place] [address]207 Aug, [facility] [address] [id number] [place] [address]- 5350 Aug, [facility] [address] [id number] [place] [address]- 8373 Aug, [facility] [address] [id number] [place] [address]- 3425 Jul, [facility] [place] [facility] [address] [id number] [place] [address]- 8176 Jul, [facility] [place] [facility] [address] [id number] [place] [address]- 3046 Jun, [facility] [place] [facility] [address] [id number] [place] [address]- 5146 Jun, [facility] [address] [id number] [place] [address]- 5486 Jun, [facility] [place] [facility] [address] [id number] [place] [address]- 5596 08 Jun, 2012 [facility] [place] [facility] [address] [id number] [place] [address]- 2406 Jun, [facility] [place] [facility] [address] [id number] [place] [address]- 7535 Jun, [facility] [place] [facility] [address] [id number] [place] [address]- 1019 Jun, [facility] [place] [facility] [address] [id number] [place] [address]- 2396 May, [facility] [place] [facility] [address] [id number] [place] [address]- 6402 May, [facility] [place] [facility] [address] [id number] [place] [address]- 4290 May, [facility] [place] [facility] [address] [id number] [place] [address]- 0579 May, [facility] [place] [facility] [address] [id number] [place] [address]- 5726 Mar, [facility] [place] [facility] [address] [facility] [id number] [place] [address]- 2146 Mar, [facility] [place] [facility] [address] [facility] [id number] [place] [address]- 1567 Jan, IMMUNIZATIONS No Known Immunizations SOCIAL HISTORY Never Assessed REASON FOR VISIT mina/wants wisdom te PLAN OF CARE Activity Details Follow Up prn Reason:hygiene recall VITAL SIGNS MEDICATIONS Medication Instructions Dosage Frequency Start Date End Date Duration Status Multiple Vitamins-Iron - Orally Once a day 1 tablet 24h Active Ondansetron 8 MG DISSOLVE ONE (1) TABLET ON THE TONGUE EVERY SIX (6) HOURS 5 Active Neurontin 600 MG Orally Three times a day 1 capsule 8h Active Atorvastatin Calcium 40 MG TAKE ONE TABLET BY MOUTH ONCE DAILY (LAST REFILL MUST HAVE LABS) 30 Active Duloxetine HCl 60 MG Orally Once a day 1 capsule 24h 30 days Active Xarelto 20 mg 1 Tablet by Oral route 1 time per day Jul, Active Quad Cane - as directed 24h Apr, Active Cyclobenzaprine HCl 10 TAKE 1 TABLET BY MOUTH THREE TIMES DAILY 30 Active Lantus SoloStar 100 8 units 12h Active Comfort Lancets - as directed 8h Mar, Active MiraLax - Orally Once a day as needed 1 packet mixed with 8 ounces of fluid Active Humalog KwikPen 100 INJECT 5 UNITS SUB-Q THREE TIMES DAILY BOFORE MEALS Active Marinol 5 mg Orally Twice a day 1 capsule before lunch and supper 12h 28 days Active Doxepin HCl 10 MG Orally Once a day 1 capsule at bedtime 24h September, 30 days Active Maxalt 5 mg Orally daily as needed Take 1 tablet when headache begins; repeat in 2 hours if not better. Not to take more than 30 mg daily September, 30 days Active Lyrica 150 MG Orally Twice a day 1 capsule 12h 30 days Active Microlet Lancets 0 USE DIRECTED THREE TIMES DAILY 30 Active Ayden Contour Next Test - subcutaneously 3 times a day test blood sugar 8h Active Promethazine HCl 25 MG Orally every 6 hours 1 tablet 6h 30 Active Calcium 600-200 MG-UNIT Active SudoGest 60 mg Orally every 6 hrs 1 tablet as needed 6h September, 07 days Active Tizanidine HCl 4 MG Orally 2 times a day 1 tablet 12h 30 Active ProAir HFA 108 INHALE 2 PUFFS BY MOUTH FOUR TIMES DAILY NEEDED 25 Active Nicotine 14 MG/24HR Transdermal Once a day for 6 weeks 1 patch to skin Oct, Nov, 42 days Active ProAir HFA cfc free 90 mcg/inh INHALE 2 PUFFS BY MOUTH FOUR TIMES DAILY NEEDED 25 Active Wellbutrin SR 100 MG Orally Once a day 1 tablet in the morning 24h Oct, 30 day(s) Active Zofran ODT 8 MG DISSOLVE ONE TABLET ON THE TONGUE EVERY 6 HOURS 5 Active Oxycodone-Acetaminophen 10-325 MG Orally 4 times a day 1 tablet as needed 6h 13 Nov, 2017 28 days Active Vitamin D-3 1000 UNIT Orally Once a day 2 capsule 24h Active Cyanocobalamin 1000 MCG Orally Once a day 1 tablet 24h Active Advair HFA 115-21 MCG/ACT Inhalation Twice a day 2 puffs 12h 06 Nov, 2017 Active Omeprazole 40 mg 1 CAP(S) ONCE A DAY ORALLY 30 DAYS 30 Active RESULTS No Results PROCEDURES Procedure Date Ordered Result Body Site LTD ORAL EVALUATION - PROBLEM FOCUS December 17, 2017 INTRAORL-PERIAPICAL 1 FILM 17112 December 17, 2017 PANORAMIC FILM SEE ALSO CODE [id number] December 17, 2017 BITEWING - SINGLE FILM December 17, 2017 INSTRUCTIONS MEDICATIONS ADMINISTERED No Known Medications [...] vomitting-[facility] 03/05/17 Hospitalization History hospital stay at [facility] for stomach issues 2016
--- OUTSIDE RECORDS SUMMARY | 2018-05-04 15:49 | XMS REPORT ---
Author Author HORACE HIGGINS [facility] Address [address] [place] [address] Care Team Providers Care Plant Cytologist Name Role Phone HORACE HIGGINS Unavailable PROBLEMS Type Condition ICD9-CM Code WMI31-ON Code Onset Dates Condition Status SNOMED Code Problem Primary insomnia F51.01 Active 5075976 Problem Reactive depression F32.9 Active 51407170 Problem Asthma exacerbation J45.901 Active 686794580 Problem Irritable bowel syndrome with constipation K58.1 Active 661976317 Problem Back pain M54.9 Active 716326116 Problem Tobacco dependency F17.200 Active 59242652 Problem Low TSH level R94.6 Active 859942607 Problem PTSD (post-traumatic stress disorder) F43.10 Active 42186283 Problem Diabetic polyneuropathy associated with type 2 diabetes mellitus E11.42 Active 16143907 Problem Annual physical exam Z00.00 Active 138614622 Problem Migraine without aura and without status migrainosus, not intractable G43.009 Active 510689015 Problem Gastroparesis K31.84 Active 018128578 Problem 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 Active 499501247 Problem Neuropathy G62.9 Active 518973423 Problem Diabetes E11.9 Active 14922887 Problem Uncomplicated asthma, unspecified asthma severity J45.909 Active 350043361 Problem Anorexia R63.0 Active 62153651 Problem Mixed hyperlipidemia E78.2 Active 702026867 Problem Weight loss R63.4 Active 206386847 Problem Type 2 diabetes mellitus with diabetic autonomic (poly)neuropathy E11.43 Active 10516270 Problem History of colon polyps Z86.010 Active 941938964 ALLERGIES No Information ENCOUNTERS Encounter Location Date Diagnosis [facility] [address] [facility] [id number] [address] Jan, [facility] [address] [place] [id number] [address] 18 Jan, 2018 [facility] [id number] [place] [address] 62047- 0636 17 Jan, 2018 [facility] [id number] [place] [address] 35445- 1360 Jan, Back pain M54.9 ; Type 2 diabetes mellitus with diabetic autonomic (poly)neuropathy E11.43 ; Neuropathy G62.9 ; Irritable bowel syndrome with constipation K58.1 ; Sprain of other part of left shoulder region, initial encounter S43.492A and Dysfunction of left eustachian tube H69.82 [facility] [id number] [place] [address] 60242- 5367 Jan, [facility] [id number] [place] [address] 28967- 0206 05 Jan, 2018 Neuropathy G62.9 ; LLQ pain R10.32 and Other dorsalgia M54.89 [facility] [id number] [place] [address] 38677- 1547 Jan, [facility] [id number] [place] [address] 47698- 0464 Jan, [facility] [id number] [place] [address] 68644- 4149 Dec, Right upper quadrant abdominal pain R10.11 [facility] [id number] [place] [address] 20928- 9012 Dec, PTSD (post-traumatic stress disorder) F43.10 [facility] [id number] [place] [address] 44904- 1492 Dec, LLQ pain R10.32 [facility] [id number] [place] [address] 15400- 6898 Dec, Other dorsalgia M54.89 [facility] [id number] [place] [address] 18769- 4558 Dec, Neuropathy G62.9 [facility] [id number] [place] [address] 67725- 6470 Dec, [place] [address] 35514- 8493 Nov, Irritable bowel syndrome with constipation K58.1 ; Uncomplicated asthma, unspecified asthma severity J45.909 and Type 2 diabetes mellitus with diabetic autonomic (poly)neuropathy E11.43 [facility] [address] [id number] Nov, Dental examination Z01.20 [place] [address] 93077- 4664 Nov, Other dorsalgia M54.89 [place] [address] 34632- 4564 Nov, LLQ pain R10.32 ; Low TSH level R94.6 and Gastroparesis K31.84 [place] [address] 53043- 4357 Nov, Anorexia R63.0 [place] [address] 04176- 5973 Nov, Asthma exacerbation J45.901 [place] [address] 10688- 3183 Oct, PTSD (post-traumatic stress disorder) F43.10 [place] [id number] [place] [address] 39392- 8494 Oct, [place] [address] 14205- 4934 Oct, PTSD (post-traumatic stress disorder) F43.10 and Tobacco dependency F17.200 [place] [address] 72156- 7786 Oct, [place] [id number] [place] [address] 28532- 4040 Oct, Other dorsalgia M54.89 [place] [id number] [place] [address] 31514- 3988 Oct, Anorexia R63.0 [place] [address] 222764- 0852 September, PTSD (post-traumatic stress disorder) F43.10 [place] [address] 97651- 9385 September, Low TSH level R94.6 [place] [address] 60504- 2908 September, Other dorsalgia M54.89 [place] [address] 04943- 7563 September, Annual physical exam Z00.00 and Migraine without aura and without status migrainosus, not intractable G43.009 [place] [address] 78698- 4787 September, Abnormal TSH R94.6 and Dysfunction of left eustachian tube H69.82 [place] [address] 23310- 5217 Aug, [place] [address] 67278- 4146 Aug, Anorexia R63.0 [facility] [address] [id number] Aug, Dental examination Z01.20 and Xerostomia K11.7 [place] [id number] [place] [address] 21485- 3103 Aug, Neuropathy G62.9 [place] [address] 41368- 8387 Aug, [place] [address] 53830- 5459 Aug, Other dorsalgia M54.89 [place] [address] 89239- 1779 Aug, Type 2 diabetes mellitus with diabetic autonomic (poly) neuropathy E11.43 ; Diabetic polyneuropathy associated with type 2 diabetes mellitus E11.42 ; Bronchitis J40 ; Gastroparesis K31.84 and Reactive depression F32.9 [facility] [id number] [place] [address] 08445 2546 Aug, PTSD (post-traumatic stress disorder) F43.10 [facility] [address] 44242 2546 Aug, Other dorsalgia M54.89 and Anorexia R63.0 [facility] [address] 579032- 4736 Jul, [facility] [address] 71233 2546 Jul, Other dorsalgia M54.89 [facility] [address] 20149 2546 Jul, [facility] [id number] [place] [address] 68033- 8846 Jul, [facility] [id number] [place] [address] 81497 2546 Jul, PTSD (post-traumatic stress disorder) F43.10 [facility] [id number] [place] [address] 11024- 3686 Jul, [facility] [address] 23606 2546 Jul, [facility] [id number] [place] [address] 01114 2546 Jul, [facility] [id number] [place] [address] 49382 2546 Jul, Anorexia R63.0 [facility] [id number] [place] [address] 87639- 8246 Jun, [facility] [id number] [place] [address] 17239- 0091 Jun, Vaginal discharge N89.8 ; Visit for gynecologic examination Z01.419 and Pelvic pressure in female R10.2 [facility] [id number] [place] [address] 78774- 8096 Jun, [facility] [address] 07312- 5096 Jun, Other dorsalgia M54.89 [facility] [address] 11503- 8076 Jun, [facility] [address] 92160- 2256 Jun, [facility] [address] 08669- 8401 Jun, [facility] [address] 89488- 6537 May, Back pain M54.9 [facility] [address] 94882- 7526 May, Anorexia R63.0 [facility] [address] 86553- 5088 May, Other dorsalgia M54.89 [facility] [id number] [place] [address] 03175- 0006 May, [facility] [id number] [place] [address] 22303- 2542 May, Bronchitis J40 [facility] [address] 77796- 1447 May, Type 2 diabetes mellitus with diabetic autonomic (poly) neuropathy E11.43 ; long-term current use of insulin Z79.4 ; Back pain M54.9 and Neuropathy G62.9 [facility] [address] 58637- 7886 May, Left breast mass N63.20 [facility] [id number] [place] [address] 07090- 5250 May, [facility] [id number] [place] [address] 38483- 3795 Apr, Other dorsalgia M54.89 [facility] [id number] [place] [address] 47112- 1868 Apr, Anorexia R63.0 [facility] [address] 77975- 6402 Apr, Anorexia R63.0 [facility] [address] 45326- 3877 Apr, Mass of left breast N63.20 [facility] [id number] [place] [address] 98425- 9702 Apr, [facility] [address] 90014- 8751 Apr, [facility] [id number] [place] [address] 90214- 8375 Apr, Diarrhea of presumed infectious origin A09 [facility] [id number] [place] [address] 18784- 0205 Apr, Encounter for immunization Z23 [facility] [address] 11482- 9949 Apr, [facility] [id number] [place] [address] 02738- 8341 Mar, Other dorsalgia M54.89 [facility] [address] 75439- 2095 Mar, [facility] [id number] [place] [address] 46358- 5761 Mar, [facility] [address] 08145- 3922 Mar, Anorexia R63.0 [facility] [id number] [place] [address] 64023- 4671 Mar, [facility] [address] 43283- 5632 Mar, Other dorsalgia M54.89 [facility] [address] 14871- 7321 Mar, [facility] [address] 67629- 7340 Mar, Encounter for immunization Z23 [facility] [address] 24543- 6585 Feb, Anorexia R63.0 [facility] [address] 74608- 1932 Feb, Diabetes E11.9 [facility] [address] 19421- 6118 Feb, Back pain M54.9 and Diabetes E11.9 [facility] [address] 80283- 0701 Feb, Diabetes E11.9 [facility] [address] 20623- 1174 Feb, Neuropathy G62.9 [facility] [address] 77635- 6412 Feb, Encounter for immunization Z23 ; Epigastric pain R10.13 ; Weight loss, abnormal R63.4 and Neuropathy G62.9 [facility] [address] [id number] Feb, [facility] [address] 77525- 5700 Feb, [facility] [address] 31465- 5707 Feb, Intractable vomiting with nausea, unspecified vomiting type R11.2 [facility] [address] 16569 -7239 Feb, Chronic nausea R11.0 [facility] [address] 95594- 8241 Feb, Other dorsalgia M54.89 [facility] [address] 90742- 1019 Jan, [facility] [address] 93293- 9567 Jan, [facility] [address] 54831- 8883 Jan, [facility] [address] 31873- 7004 Jan, [facility] [address] 04924- 4929 Jan, Asthma exacerbation J45.901 ; Bronchitis J40 and Neuropathy G62.9 [facility] [address] 97209- 2192 Jan, Anorexia R63.0 [facility] [id number] [place] [address] 46831- 0660 Jan, Other dorsalgia M54.89 [facility] [id number] [place] [address] 17728- 1370 Dec, [facility] [address] 45137- 5702 Dec, [facility] [address] 73105- 2993 Dec, Anorexia R63.0 [facility] [address] 58222- 9109 Dec, Primary insomnia F51.01 [facility] [address] 93005- 7355 Dec, Other dorsalgia M54.89 [facility] [id number] [place] [address] 67478- 7143 Dec, [facility] [id number] [place] [address] 17991- 7926 Nov, [facility] [id number] [place] [address] 01350- 5007 Nov, [facility] [id number] [place] [address] 94111- 0411 Nov, [facility] [id number] [place] [address] 19588- 2232 Nov, History of colon polyps Z86.010 [facility] [id number] [place] [address] 34520- 5655 Nov, Weight loss R63.4 ; Nausea and vomiting, intractability of vomiting not specified, unspecified vomiting type R11.2 and Abnormal LFTs R79.89 [facility] [id number] [place] [address] 09722- 1748 Nov, [facility] [id number] [place] [address] 18303- 4907 Nov, Neuropathy G62.9 and Pain in right knee M25.561 [facility] [id number] [place] [address] 54910- 8375 Nov, Back pain M54.9 [facility] [id number] [place] [address] 07433- 7193 Nov, [facility] [id number] [place] [address] 42386- 8666 Nov, Bronchitis J40 [facility] [id number] [place] [address] 54041- 5543 Nov, Weight loss R63.4 [facility] [id number] [place] [address] 89427- 5108 Oct, Back pain M54.9 [facility] [id number] [place] [address] 40636- 4485 Oct, [facility] [id number] [place] [address] 27054- 8972 14 Oct, 2016 Back pain M54.9 [facility] [id number] [place] [address] 23482- 0887 Oct, Type 2 diabetes mellitus without complications E11.9 and Bronchitis J40 [facility] [id number] [place] [address] 64807- 0094 Oct, [facility] [id number] [place] [address] 73735- 6025 Oct, [facility] [id number] [place] [address] 58672- 0284 September, Gastroparesis K31.84 ; Type 2 diabetes mellitus with diabetic autonomic (poly)neuropathy E11.43 and Neuropathy G62.9 [facility] [id number] [place] [address] 89575- 4958 September, Other dorsalgia M54.89 [facility] [id number] [place] [address] 49304- 9725 September, [facility] [id number] [place] [address] 19373- 0253 September, [facility] [id number] [place] [address] 86286- 5478 Aug, Gastroparesis K31.84 and Radicular leg pain M54.10 [facility] [id number] [place] [address] 59093- 7157 Aug, Anorexia R63.0 [facility] [id number] [place] [address] 16931- 0036 Aug, Bronchitis J40 [facility] [id number] [place] [address] 62857- 8146 Aug, Back pain M54.9 [facility] [id number] [place] [address] 60872- 4880 Aug, Routine gynecological examination Z01.419 ; Routine screening for STI (sexually transmitted infection) Z11.3 and Yeast infection of the vagina B37.3 [facility] [id number] [place] [address] 81172- 0624 Jul, Other dorsalgia M54.89 [facility] [id number] [place] [address] 57039- 1744 Jul, Diabetes E11.9 and Gastroparesis K31.84 [place] [address] 05301- 0789 Jun, [place] [id number] [place] [address] 50101- 0576 Jun, Back pain M54.9 [facility] [id number] [place] [address] 35709- 7929 14 Jun, 2016 Neuropathy G62.9 [facility] [address] [id number] 02 Jun, 2016 Encounter for dental examination Z01.20 [place] [id number] [place] [address] 16045- 0124 Jun, Gastroparesis 536.3 and Anorexia R63.0 [place] [id number] [place] [address] 46253- 4862 May, Other dorsalgia M54.89 [facility] [id number] [place] [address] 81490- 7492 May, Periumbilical abdominal pain R10.33 ; Weight loss R63.4 and Gastroparesis K31.84 [facility] [id number] [place] [address] 14250- 4733 May, Back pain M54.9 [place] [id number] [place] [address] 03317 2546 23 Apr, 2016 Anorexia R63.0 [facility] [address] 58324 2546 Apr, Anorexia R63.0 [facility] [id number] [place] [address] 39170 2546 16 Apr, 2016 Back pain M54.9 [facility] [address] 29679 2546 15 Apr, 2016 Back pain M54.9 [facility] [id number] [place] [address] 88556 2546 Apr, [facility] [id number] [place] [address] 84779 2546 Apr, Bronchitis J40 and Neuropathy G62.9 [facility] [address] 90548 2546 Apr, Neuropathy G62.9 [facility] [id number] [place] [address] 43814 2544 Apr, [facility] [id number] [place] [address] 41229 2545 Apr, Back pain M54.9 [facility] [id number] [place] [address] 64657 2546 Mar, Type 2 diabetes mellitus with diabetic autonomic (poly) neuropathy E11.43 [facility] [id number] [place] [address] 08721 2546 Mar, Type 2 diabetes mellitus without complications E11.9 [facility] [id number] [place] [address] 48504 2546 Mar, Neuropathy G62.9 [facility] [id number] [place] [address] 70579 2546 Mar, [facility] [id number] [place] [address] 72683- 8374 Mar, Breast cancer screening Z12.39 [facility] [id number] [place] [address] 43938- 7469 Mar, Other dorsalgia M54.89 [facility] [id number] [place] [address] 25476- 1342 Feb, [facility] [address] 74099- 8846 Jan, Neuropathy G62.9 ; Type 2 diabetes mellitus with diabetic autonomic (poly)neuropathy E11.43 ; Uncomplicated asthma, unspecified asthma severity J45.909 and Encounter for immunization Z23 [place] [address] 77813- 5677 Jan, [place] [address] 55997- 5177 Jan, [facility] [address] 78180- 3001 Dec, [facility] [address] 24431- 6121 Dec, [facility] [address] 35979- 0561 Nov, [facility] [address] 88918- 5092 Nov, Back pain M54.9 [facility] [address] 77779- 6149 Nov, Neuropathy G62.9 ; Mixed hyperlipidemia E78.2 ; Type 2 diabetes mellitus with diabetic autonomic (poly)neuropathy E11.43 and 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 [facility] [address] 20418- 7813 Oct, [facility] [address] 74005- 0849 Oct, Other dorsalgia M54.89 [place] [id number] [place] [address] 82813- 8956 September, Primary insomnia F51.01 [facility] [id number] [place] [address] 00776- 5606 September, [facility] [id number] [place] [address] 79035- 0269 Aug, Other dorsalgia M54.89 [facility] [id number] [place] [address] 03759- 7151 Jul, [facility] [id number] [place] [address] 05373- 4366 Jul, Other dorsalgia M54.89 [facility] [id number] [place] [address] 31103- 9388 Jul, Diabetes E11.9 ; Back pain M54.9 ; Neuropathy G62.9 and Gastroparesis K31.84 [facility] [id number] [place] [address] 30735- 1437 Jun, [facility] [id number] [place] [address] 78838- 6267 Jun, Other dorsalgia M54.89 [facility] [id number] [place] [address] 41098- 6120 May, [facility] [id number] [place] [address] 22107- 0050 May, Radicular leg pain M54.10 and Other dorsalgia M54.89 [facility] [id number] [place] [address] 51995- 3063 Apr, [facility] [id number] [place] [address] 78556- 8746 Mar, [facility] [id number] [place] [address] 42543- 0614 Mar, [facility] [id number] [place] [address] 72143- 3869 Mar, Radicular leg pain M54.10 [facility] [id number] [place] [address] [id number]- 9369 Feb, [facility] [id number] [place] [address] [id number]- [id number] Feb, [facility] [id number] [place] [address] 60549- 6542 Feb, [facility] [id number] [place] [address] 28510- 5585 Jan, [facility] [id number] [place] [address] 16501- 9002 Jan, IBS (irritable bowel syndrome) 564.1 [facility] [id number] [place] [address] [id number]- 6306 Jan, [facility] [id number] [place] [address] [id number]- 4218 Jan, [facility] [id number] [place] [address] 82942- 2721 Jan, Diabetes mellitus without mention of complication, type II or unspecified type, not stated as uncontrolled 250.00 ; Gastroparesis 536.3 and Hypoacusis 389.9 [facility] [id number] [address] 38[address] Jan, [facility] [id number] [place] [address] 38517- 7145 Jan, [facility] [id number] [address] 5[address] Dec, [facility] [id number] [place] [address] [id number]- 4303 Dec, [facility] [id number] [address] 6[address] Dec, [facility] [id number] [address] 2714 Dec, Back pain 724.5 and Gastroparesis 536.3 [facility] [id number] [address] Nov, [facility] [id number] [id number] Nov, Dental examination V72.2 [facility] [id number] [place] [address] 79361- 0645 Nov, [facility] [id number] [place] [address] 24670- 1378 Nov, [facility] [id number] [place] [id number]- [address] Nov, Depressive disorder, not elsewhere classified 311 and No condition on [place] II V71.09 [facility] [id number] [place] [address] 04386- 2682 Nov, Diabetes 250.00 and Symptomatic menopausal or female climacteric states 627.2 [facility] [id number] [address] Oct, [facility] [id number] [place] [address] 33203- 7319 Oct, Lumbar strain 847.2 [facility] [id number] [place] [address] 40464- 6460 Oct, Gastroparesis 536.3 and Unspecified myalgia and myositis 729.1 [facility] [id number] [address] Aug, [facility] [id number] [place] [address] 59866- 8252 Aug, [facility] [id number] [address] Jul, [facility] [id number] [place] [address] [place] [address] Jul, [facility] [place] [facility] [address] [id number] [place] [address] Jul, [facility] [place] [facility] [address] [id number] [place] [address] 7675 Jul, [facility] [place] [facility] [address] [id number] [place] [address] 3808 Jul, [facility] [place] [facility] [address] [id number] [place] [address]- 8362 Jun, [facility] [place] [facility] [address] [id number] [place] [address] 9414 Jun, [facility] [place] [facility] [address] [id number] [place] [address]- 5777 Jun, [facility] [place] [facility] [address] [id number] [place] [address]- 6085 May, [facility] [place] [facility] [address] [id number] [place] [address]- 8118 May, [facility] [place] [facility] [address] [id number] [place] [address]- 1650 Mar, [facility] [place] [facility] [address] [id number] [place] [address]- 4091 Mar, [facility] [place] [facility] [address] [id number] [place] [address]- 4233 Mar, [facility] [place] [facility] [address] [id number] [place] [address]- 4581 Mar, [facility] [place] [facility] [address] [id number] [place] [address]- 4029 Mar, [facility] [place] [facility] [address] [id number] [place] [address]- 7242 Mar, [facility] [place] [facility] [address] [id number] [place] [address]- 9973 Feb, [facility] [place] [facility] [address] [id number] [place] [address]- 5284 Feb, [facility] [address] [id number] [place] [address]- [address]121 Nov, [facility] [address] [id number] [place] [address]- 2425 Nov, [facility] [address] [id number] [place] [address]- 0864 Nov, [facility] [address] [id number] [place] [address]- 4967 Oct, [facility] [address] [id number] [place] [address]- 1757 September, [facility] [address] [id number] [place] [address]- 6590 Aug, [facility] [address] [id number] [place] [address]- 1720 Aug, [facility] [address] [id number] [place] [address]- 5926 Aug, [facility] [address] [id number] [place] [address]- 1487 Aug, [facility] [address] [id number] [place] [address]- 6256 Aug, [facility] [address] [id number] [place] [address]- 4816 Aug, [facility] [address] [id number] [place] [address]- 6408 Aug, [facility] [address] [id number] [place] [address]- 9087 Aug, [facility] [address] [id number] [place] [address]- 3892 Jul, [facility] [address] [id number] [address]- [address] Jul, [facility] [id number] [address]- 9[address] Jun, [facility] [id number] [address] 1296 Jun, [facility] [id number] [address] Jun, [facility] [id number] [address]- [address] 08 Jun, 2012 [facility] [id number] [place] [address] 81629- 7760 Jun, [facility] [id number] [address] Jun, [facility] [id number] [place] [address] 63686- 8068 Jun, [facility] [id number] [address]- 1147 May, [facility] [id number] [address]- [address] May, [facility] [id number] [address]- [address] May, [facility] [id number] [address]- 1537 May, [facility] [id number] [address]- [address] Mar, [facility] [id number] [address]- [address] Mar, [facility] [id number] [address]- [address] 24 Jan, 2012 IMMUNIZATIONS No Known Immunizations SOCIAL HISTORY Never Assessed REASON FOR VISIT Returned call PLAN OF CARE VITAL SIGNS MEDICATIONS [...]
--- OUTSIDE RECORDS SUMMARY | 2018-05-04 15:50 | XMS REPORT ---
Author Author HORACE HIGGINS [facility] Address [address] [place] [address] Care Team Providers Care Coat Baster Name Role Phone HORACE HIGGINS Unavailable PROBLEMS Type Condition ICD9-CM Code CEJ90-MN Code Onset Dates Condition Status SNOMED Code Problem Primary insomnia F51.01 Active 6498343 Problem Reactive depression F32.9 Active 93561976 Problem Asthma exacerbation J45.901 Active 127247452 Problem Irritable bowel syndrome with constipation K58.1 Active 400163757 Problem Back pain M54.9 Active 788632479 Problem Tobacco dependency F17.200 Active 44120182 Problem Low TSH level R94.6 Active 670226834 Problem PTSD (post-traumatic stress disorder) F43.10 Active 78328468 Problem Diabetic polyneuropathy associated with type 2 diabetes mellitus E11.42 Active 00109655 Problem Annual physical exam Z00.00 Active 775912389 Problem Migraine without aura and without status migrainosus, not intractable G43.009 Active 894932974 Problem Gastroparesis K31.84 Active 430328071 Problem 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 Active 568603078 Problem Neuropathy G62.9 Active 960266252 Problem Diabetes E11.9 Active 63557379 Problem Uncomplicated asthma, unspecified asthma severity J45.909 Active 778412265 Problem Anorexia R63.0 Active 94638187 Problem Mixed hyperlipidemia E78.2 Active 477173468 Problem Weight loss R63.4 Active 643144680 Problem Type 2 diabetes mellitus with diabetic autonomic (poly)neuropathy E11.43 Active 62983948 Problem History of colon polyps Z86.010 Active 410102350 ALLERGIES Substance Reaction Event Type Date Status Coumadin vomitied blood Drug Allergy Nov, Active Toradol swells, itch from inside out Drug Allergy Nov, Active Nsaids (non-steroidal Anti-inflammatory Drug) triggers asthma, can't breathe, swells form inside out. Non Drug Allergy Nov, Active ENCOUNTERS Encounter Location Date Diagnosis [facility] [id number] [address] Jan, [facility] [id number] [place] [address] 34751- 8220 17 Jan, 2018 [facility] [id number] [place] [address] 68883- 4201 Jan, [facility] [id number] [place] [address] 39845- 4641 05 Jan, 2018 [facility] [id number] [place] [address] 84385- 6389 Jan, [facility] [id number] [place] [address] 04280- 6831 Jan, [facility] [id number] [place] [address] 41512- 6679 Dec, Right upper quadrant abdominal pain R10.11 [facility] [id number] [place] [address] 08114- 3463 Dec, PTSD (post-traumatic stress disorder) F43.10 [facility] [id number] [place] [address] 98765- 8376 Dec, LLQ pain R10.32 [facility] [id number] [place] [address] 70077- 9904 Dec, Other dorsalgia M54.89 [facility] [id number] [place] [address] 60062- 0631 Dec, Neuropathy G62.9 [facility] [id number] [place] [address] 41938- 0317 Dec, [facility] [id number] [place] [address] 19205- 4407 Nov, Irritable bowel syndrome with constipation K58.1 ; Uncomplicated asthma, unspecified asthma severity J45.909 and Type 2 diabetes mellitus with diabetic autonomic (poly)neuropathy E11.43 [facility] [id number] [place] [address] [id number] Nov, Dental examination Z01.20 [facility] [id number] [place] [address] 92613- 9071 Nov, Other dorsalgia M54.89 [facility] [id number] [place] [address] 35951- 6493 Nov, LLQ pain R10.32 ; Low TSH level R94.6 and Gastroparesis K31.84 [facility] [address] 38155- 9413 Nov, Anorexia R63.0 [facility] [id number] [place] [address] 43090- 6187 Nov, Asthma exacerbation J45.901 [facility] [address] 76692- 3688 Oct, PTSD (post-traumatic stress disorder) F43.10 [facility] [id number] [place] [address] 03378- 1550 Oct, [facility] [id number] [place] [address] 94773- 6258 Oct, PTSD (post-traumatic stress disorder) F43.10 and Tobacco dependency F17.200 [facility] [id number] [place] [address] 46233- 1215 Oct, [facility] [id number] [place] [address] 11913- 4381 14 Oct, 2017 Other dorsalgia M54.89 [facility] [id number] [place] [address] 17049- 8755 04 Oct, 2017 Anorexia R63.0 [facility] [id number] [place] [address] 54973- 5668 September, PTSD (post-traumatic stress disorder) F43.10 [facility] [address] 17531- 4039 September, Low TSH level R94.6 [facility] [id number]- 9004 September, Other dorsalgia M54.89 [facility] [address] 47212- 6330 September, Annual physical exam Z00.00 and Migraine without aura and without status migrainosus, not intractable G43.009 [facility] [address] [id number]- 0868 September, Abnormal TSH R94.6 and Dysfunction of left eustachian tube H69.82 [facility] [address] 90838- 3858 Aug, [facility] [address] 02248- 2076 Aug, Anorexia R63.0 [facility] [address] [id number] Aug, Dental examination Z01.20 and Xerostomia K11.7 [facility] [address] 98135- 4601 Aug, Neuropathy G62.9 [facility] [address] 99841- 9405 Aug, [facility] [address] 66357- 0376 Aug, Other dorsalgia M54.89 [facility] [address] 23046- 3908 Aug, Type 2 diabetes mellitus with diabetic autonomic (poly) neuropathy E11.43 ; Diabetic polyneuropathy associated with type 2 diabetes mellitus E11.42 ; Bronchitis J40 ; Gastroparesis K31.84 and Reactive depression F32.9 [facility] [address] [id number]- 7836 Aug, PTSD (post-traumatic stress disorder) F43.10 [facility] [id number] [place] [address] 95451 2546 Aug, Other dorsalgia M54.89 and Anorexia R63.0 [facility] [id number] [place] [address] 01501 2546 Jul, [facility] [id number] [place] [address] 25765 2546 Jul, Other dorsalgia M54.89 [facility] [id number] [place] [address] 76429 2546 Jul, [facility] [id number] [place] [address] 72075 2546 Jul, [facility] [id number] [place] [address] 24216 2546 Jul, PTSD (post-traumatic stress disorder) F43.10 [facility] [id number] [place] [address] 40023 2546 Jul, [facility] [id number] [place] [address] 20508 2546 Jul, [facility] [id number] [place] [address] 89116 2546 Jul, [facility] [id number] [place] [address] 86879 2546 Jul, Anorexia R63.0 [facility] [id number] [place] [address] 14819 2546 Jun, [facility] [id number] [place] [address] 97569 2546 Jun, Vaginal discharge N89.8 ; Visit for gynecologic examination Z01.419 and Pelvic pressure in female R10.2 [facility] [id number] [place] [address] 21619 2546 Jun, [facility] [id number] [place] [address] 50226- 7908 Jun, Other dorsalgia M54.89 [facility] [id number] [place] [address] 39709- 2042 Jun, [facility] [address] 25350- 6726 Jun, [facility] [address] 04530- 4393 Jun, [facility] [id number] [place] [address] 47475- 5529 May, Back pain M54.9 [facility] [id number] [place] [address] 76786- 3280 May, Anorexia R63.0 [facility] [address] 02055- 9637 May, Other dorsalgia M54.89 [facility] [id number] [place] [address] 90543- 5026 May, [facility] [address] 76504- 7038 May, Bronchitis J40 [facility] [id number] [place] [address] 37429- 1531 May, Type 2 diabetes mellitus with diabetic autonomic (poly) neuropathy E11.43 ; detention current use of insulin Z79.4 ; Back pain M54.9 and Neuropathy G62.9 [facility] [id number] [place] [address] 90458- 2690 May, Left breast mass N63.20 [facility] [id number] [place] [address] 08461- 0380 May, [facility] [id number] [place] [address] 87142- 6592 Apr, Other dorsalgia M54.89 [facility] [id number] [place] [address] 95868 2546 Apr, Anorexia R63.0 [facility] [id number] [place] [address] 38014 2546 Apr, Anorexia R63.0 [facility] [id number] [place] [address] 79486 2546 Apr, Mass of left breast N63.20 [facility] [id number] [place] [address] 77246 2546 Apr, [facility] [id number] [place] [address] 45940- 0926 Apr, [facility] [id number] [place] [address] 41772 2540 Apr, Diarrhea of presumed infectious origin A09 [facility] [address] 56804 2543 Apr, Encounter for immunization Z23 [facility] [id number] [place] [address] 49971- 4790 Apr, [facility] [id number] [place] [address] 39537- 6480 Mar, Other dorsalgia M54.89 [facility] [id number] [place] [address] 12547 2546 Mar, [facility] [id number] [place] [address] 87059 2544 Mar, [facility] [id number] [place] [address] 67431 2546 Mar, Anorexia R63.0 [facility] [id number] [place] [address] 56070- 2546 Mar, [facility] [id number] [place] [address] 44199 2541 Mar, Other dorsalgia M54.89 [facility] [id number] [place] [address] 36569- 1584 Mar, [facility] [id number] [place] [address] 92383- 5114 Mar, Encounter for immunization Z23 [facility] [id number] [place] [address] 24331- 5664 Feb, Anorexia R63.0 [facility] [address] 54599- 5195 Feb, Diabetes E11.9 [facility] [id number] [place] [address] 39476- 5908 Feb, Back pain M54.9 and Diabetes E11.9 [facility] [id number] [place] [address] 76372- 7694 Feb, Diabetes E11.9 [facility] [address] 58252- 9754 Feb, Neuropathy G62.9 [facility] [id number] [place] [address] 26344- 0156 Feb, Encounter for immunization Z23 ; Epigastric pain R10.13 ; Weight loss, abnormal R63.4 and Neuropathy G62.9 [facility] [id number] [place] [address] [id number] Feb, [facility] [id number] [place] [address] 93262- 6592 Feb, [facility] [id number] [place] [address] 13135- 4311 Feb, Intractable vomiting with nausea, unspecified vomiting type R11.2 [facility] [id number] [place] [address] 73336 -2100 Feb, Chronic nausea R11.0 [facility] [id number] [place] [address] 02635- 5927 Feb, Other dorsalgia M54.89 [facility] [id number] [place] [address] 52301 2546 Jan, [facility] [address] 84991 2546 Jan, [facility] [id number] [place] [address] 33053 2546 Jan, [facility] [address] 90377 2546 Jan, [facility] [id number] [place] [address] 32115 2546 Jan, Asthma exacerbation J45.901 ; Bronchitis J40 and Neuropathy G62.9 [facility] [id number] [place] [address] 01177 2546 Jan, Anorexia R63.0 [facility] [address] 36126 2546 Jan, Other dorsalgia M54.89 [facility] [id number] [place] [address] 30285 2546 Dec, [facility] [id number] [place] [address] 92469 2546 Dec, [facility] [id number] [place] [address] 91138 2546 Dec, Anorexia R63.0 [facility] [id number] [place] [address] 62269 2546 Dec, Primary insomnia F51.01 [facility] [id number] [place] [address] 24753 2546 Dec, Other dorsalgia M54.89 [facility] [id number] [place] [address] 48497 2546 Dec, [facility] [id number] [place] [address] 96701 2546 Nov, [facility] [address] [address]- 8609 Nov, [facility] [id number] [place] [address] 84504- 3444 Nov, [facility] [id number] [place] [address] 92251- 7979 Nov, History of colon polyps Z86.010 [facility] [id number] [place] [address] 93389- 6361 Nov, Weight loss R63.4 ; Nausea and vomiting, intractability of vomiting not specified, unspecified vomiting type R11.2 and Abnormal LFTs R79.89 [facility] [id number] [place] [address] 12721- 3079 Nov, [facility] [id number] [place] [address] 54335- 0751 Nov, Neuropathy G62.9 and Pain in right knee M25.561 [facility] [id number] [place] [address] 39487- 4173 Nov, Back pain M54.9 [facility] [id number] [place] [address] 90866- 4526 Nov, [facility] [id number] [place] [address] 25252- 7629 Nov, Bronchitis J40 [facility] [address] [place] [address] 27516- 4932 Nov, Weight loss R63.4 [facility] [address] [place] [address] 94562- 8293 Oct, Back pain M54.9 [facility] [address] [place] [address] 64524- 8210 Oct, [facility] [address], [place] [address]- 7386 Oct, Back pain M54.9 [facility] [id number] [place] [address] 31774- 2447 Oct, Type 2 diabetes mellitus without complications E11.9 and Bronchitis J40 [facility] [id number] [place] [address] 23147- 2626 Oct, [facility] [id number] [place] [address] 69809- 2561 Oct, [facility] [id number] [place] [address] 41884- 1300 September, Gastroparesis K31.84 ; Type 2 diabetes mellitus with diabetic autonomic (poly)neuropathy E11.43 and Neuropathy G62.9 [facility] [id number] [place] [address] 61270- 3242 September, Other dorsalgia M54.89 [facility] [id number] [place] [address] 14973- 7565 September, [facility] [id number] [place] [address] 47143- 1864 September, [facility] [id number] [place] [address] 82880- 4689 Aug, Gastroparesis K31.84 and Radicular leg pain M54.10 [facility] [id number] [place] [address] 58340- 3049 Aug, Anorexia R63.0 [facility] [id number] [place] [address] 15198- 8243 Aug, Bronchitis J40 [facility] [id number] [place] [address] 10922- 8865 Aug, Back pain M54.9 [facility] [id number] [place] [address] 40810- 9635 Aug, Routine gynecological examination Z01.419 ; Routine screening for STI (sexually transmitted infection) Z11.3 and Yeast infection of the vagina B37.3 [facility] [id number] [place] [address] 00561- 3535 Jul, Other dorsalgia M54.89 [facility] [address] 89213- 4910 Jul, Diabetes E11.9 and Gastroparesis K31.84 [facility] [address] 15145- 8702 Jun, [facility] [address] 18931- 3027 Jun, Back pain M54.9 [facility] [address] 35914- 6530 Jun, Neuropathy G62.9 [facility] [address] [id number] Jun, 2016 Encounter for dental examination Z01.20 [facility] [address] 89694- 0066 Jun, Gastroparesis 536.3 and Anorexia R63.0 [facility] [address] 97595- 9732 May, Other dorsalgia M54.89 [facility] [id number] [place] [address] 67221- 1211 May, Periumbilical abdominal pain R10.33 ; Weight loss R63.4 and Gastroparesis K31.84 [facility] [id number] [place] [address] 05009- 7891 May, Back pain M54.9 [facility] [address] 03790- 2954 Apr, Anorexia R63.0 [facility] [address] 98878- 0913 Apr, Anorexia R63.0 [facility] [address] 41238- 2352 Apr, Back pain M54.9 [facility] [id number] [place] [address] 04927- 5946 Apr, Back pain M54.9 [facility] [id number] [place] [address] 83206- 1996 Apr, [facility] [address] 79742- 5761 Apr, Bronchitis J40 and Neuropathy G62.9 [facility] [id number] [place] [address] 87447- 5332 Apr, Neuropathy G62.9 [facility] [address] 92409- 3878 Apr, [facility] [id number] [place] [address] 07927- 8488 Apr, Back pain M54.9 [facility] [id number] [place] [address] 29220- 6050 Mar, Type 2 diabetes mellitus with diabetic autonomic (poly) neuropathy E11.43 [facility] [address] 81175- 2916 Mar, Type 2 diabetes mellitus without complications E11.9 [facility] [id number] [place] [address] 15149- 9597 Mar, Neuropathy G62.9 [facility] [id number] [place] [address] 68041- 8168 Mar, [facility] [id number] [place] [address] 94380- 9726 Mar, Breast cancer screening Z12.39 [facility] [id number] [place] [address] 54175- 7078 Mar, Other dorsalgia M54.89 [facility] [id number] [place] [address] 99878- 6736 Feb, [facility] [id number] [place] [address] 13688- [phone] 30 Jan, 2016 Neuropathy G62.9 ; Type 2 diabetes mellitus with diabetic autonomic (poly)neuropathy E11.43 ; Uncomplicated asthma, unspecified asthma severity J45.909 and Encounter for immunization Z23 [facility] [id number] [place] [address] [phone] Jan, [facility] [address] 6[address]- 0793 Jan, [facility] [address] 11914- [address]283 Dec, [place] [address] 0[address]- [address]239 Dec, [facility] [address] 84434- 7444 Nov, [facility] [address] 52252- 9354 Nov, Back pain M54.9 [place] [address] 77012- 8244 Nov, Neuropathy G62.9 ; Mixed hyperlipidemia E78.2 ; Type 2 diabetes mellitus with diabetic autonomic (poly)neuropathy E11.43 and detention current use of insulin Z79.4 [place] [id number] [place] [address] [phone]- [phone] Oct, [facility] [id number] [place] [address] 48822- 9091 Oct, Other dorsalgia M54.89 [place] [address] 92967- 3232 September, Primary insomnia F51.01 [facility] [address] 40449- 0171 September, [facility] [address] 82477- 5138 Aug, Other dorsalgia M54.89 [facility] [id number] [place] [address] 58276- 3490 Jul, [facility] [id number] [place] [address] 04398- 2939 Jul, Other dorsalgia M54.89 [facility] [address] 63752- 4117 Jul, Diabetes E11.9 ; Back pain M54.9 ; Neuropathy G62.9 and Gastroparesis K31.84 [facility] [address] 48129- 5334 Jun, [facility] [address] 12361- 7520 Jun, Other dorsalgia M54.89 [facility] [address] 04731- 9700 May, [facility] [id number] [place] [address] 87656- 8068 May, Radicular leg pain M54.10 and Other dorsalgia M54.89 [facility] [id number] [place] [address] 74150- 2928 Apr, [facility] [id number] [place] [address] 28710- [phone] Mar, [facility] [id number] [place] [address] [phone]- [phone] Mar, [facility] [id number] [place] [address] 48386- 1839 Mar, Radicular leg pain M54.10 [facility] [id number] [place] [address] 46251- 3748 Feb, [facility] [address] [address]- [address]88 Feb, [facility] [id number] [place] [address] 94898- 2652 Feb, [facility] [id number] [place] [address] 81791- 9654 Jan, [facility] [id number] [place] [address] 64172- 2160 Jan, IBS (irritable bowel syndrome) 564.1 [facility] [id number] [place] [address] 35716- 3532 Jan, [facility] [id number] [place] [address] 00211- 4784 Jan, [facility] [id number] [place] [address] 71312- 6842 Jan, Diabetes mellitus without mention of complication, type II or unspecified type, not stated as uncontrolled 250.00 ; Gastroparesis 536.3 and Hypoacusis 389.9 [facility] [id number] [place] [address] 11803- 3439 Jan, [facility] [id number] [place] [address] 57566- 6051 Jan, [facility] [id number] [place] [address] 24982- 2730 Dec, [facility] [id number] [place] [address] 27145- 4059 Dec, [facility] [id number] [place] [address] 92391- 4461 Dec, [facility] [id number] [place] [address] 71075- 7419 Dec, Back pain 724.5 and Gastroparesis 536.3 [facility] [id number] [place] [address] 73722- 7691 Nov, [facility] [id number] [place] [address] [id number] Nov, Dental examination V72.2 [facility] [address] [address] 4749 Nov, [facility] [address] [address] 5[address] Nov, [facility] [address] [address] 8216 Nov, Depressive disorder, not elsewhere classified 311 and No condition on [place] II V71.09 [facility] [address] [address] 6671 Nov, Diabetes 250.00 and Symptomatic menopausal or female climacteric states 627.2 [facility] [address] [address]- 3230 Oct, [facility] [id number] [place] [address] 88325- 8477 Oct, Lumbar strain 847.2 [facility] [address] [address] 9209 Oct, Gastroparesis 536.3 and Unspecified myalgia and myositis 729.1 [facility] [address] [address]- 5366 14 Aug, 2014 [facility] [address] [address] 8599 Aug, [facility] [address] [address]- 5279 Jul, [facility] [address] 2014 Jul, [facility] [address] [id number] 5351 Jul, [facility] [address] [address]- 2124 Jul, [facility] [place] [facility] [address] [id number] [place] [address]- 9296 Jul, [facility] [place] [facility] [address] [id number] [place] [address]- 0266 Jun, [facility] [place] [facility] [address] [id number] [place] [address]- 9276 Jun, [facility] [place] [facility] [address] [id number] [place] [address]- 6660 Jun, [facility] [place] [facility] [address] [id number] [place] [address]- 9882 May, [facility] [place] [facility] [address] [id number] [place] [address]- 8569 May, [facility] [place] [facility] [address] [id number] [place] [address]- 9531 Mar, [facility] [place] [facility] [address] [id number] [place] [address]- 3844 Mar, [facility] [place] [facility] [address] [id number] [place] [address]- 8211 Mar, [facility] [place] [facility] [address] [id number] [place] [address]- 8903 Mar, [facility] [place] [facility] [address] [id number] [place] [address]- 2121 Mar, [facility] [place] [facility] [address] [id number] [place] [address]- 9544 Mar, [facility] [place] [facility] [address] [id number] [place] [address]- 5342 Feb, [facility] [place] [facility] [address] [id number] [place] [address]- 1765 Feb, [facility] [place] [facility] [address] [id number] [place] [address]- 7073 Nov, [facility] [place] [facility] [address] [id number] [place] [address]- 2336 Nov, [facility] [address] [id number] [place] [address]- 1836 Nov, [facility] [place] [facility] [address] [id number] [place] [address]- 3710 Oct, [facility] [place] [facility] [address] [id number] [place] [address]- 2996 September, [facility] [place] [facility] [address] [id number] [place] [address]- 9970 Aug, [facility] [place] [facility] [address] [id number] [place] [address]- 4663 Aug, [facility] [place] [facility] [address] [id number] [place] [address]- 5131 Aug, [facility] [place] [facility] [address] [id number] [place] [address]- 6819 Aug, [facility] [place] [facility] [address] [id number] [place] [address]- 4373 Aug, [facility] [place] [facility] [address] [id number] [place] [address]- 0560 Aug, [facility] [place] [facility] [address] [id number] [place] [address]- 7833 Aug, [facility] [place] [facility] [address] [id number] [place] [address]- 2047 Aug, [facility] [place] [facility] [address] [id number] [address]- 7745 Jul, [facility] [place] [facility] [address] [id number] [place] [address]- 2071 Jul, [facility] [place] [facility] [address] [id number] [place] [address]- 1603 Jun, [facility] [place] [facility] [address] [id number] [place] [address]- 0883 Jun, [facility] [place] [facility] [address] [place] [address]- 2546 09 Jun, 2012 [facility] [address] [place] [address]- 9356 Jun, [facility] [address] [address]- 2546 Jun, [facility] [id number] [place] [address] 05745- 2546 Jun, [facility] [address] [address]- 2546 Jun, [facility] [id number] [place] [address] 31757- 2593 May, [facility] [id number] [place] [address] 68122- 5556 May, [facility] [id number] [place] [address] 50591- 3943 May, [facility] [id number] [place] [address] 05135- 8601 May, [facility] [id number] [place] [address] 01362- 9572 Mar, [facility] [address], [place] [address]- 9378 Mar, [facility] [address] [address]- 6696 Jan, IMMUNIZATIONS No Known Immunizations SOCIAL HISTORY Never Assessed REASON FOR VISIT Abdominal pain-MICHAEL vera, pt having diarrhea, vomiting, hurting on left side, both feet are hurting, constipation, migraine PLAN OF CARE Activity Details Follow Up Will call after tests Reason: Pending Test CT Scan : Abdomen & Pelvis w/ Contrast VITAL SIGNS Height 62 in 2017-12-02 Weight 105.2 lbs 2017-12-02 Temperature 97.9 degrees Fahrenheit 2017-12-02 Heart Rate 103 bpm 2017-12-02 Respiratory Rate 20 2017-12-02 BMI 19.24 kg/m2 2017-12-02 Blood pressure systolic 98 mmHg 2017-12-02 Blood pressure diastolic 72 mmHg 2017-12-02 MEDICATIONS Medication Instructions Dosage Frequency Start Date End Date Duration Status Comfort Lancets - as directed 8h Mar, Active Zofran ODT 8 MG DISSOLVE ONE TABLET ON THE TONGUE EVERY 6 HOURS 5 Active Wellbutrin SR 100 MG Orally Once a day 1 tablet in the morning 24h Oct, 30 day(s) Active ProAir HFA 108 INHALE 2 PUFFS BY MOUTH FOUR TIMES DAILY NEEDED 25 Active Neurontin 600 MG Orally Three times a day 1 capsule 8h Active Atorvastatin Calcium 40 MG TAKE ONE TABLET BY MOUTH ONCE DAILY (LAST REFILL MUST HAVE LABS) 30 Active Xarelto 20 mg 1 Tablet by Oral route 1 time per day Jul, Active Nicotine 14 MG/24HR Transdermal Once a day for 6 weeks 1 patch to skin Oct, Nov, 42 days Active MiraLax - Orally Once a day as needed 1 packet mixed with 8 ounces of fluid Active Ayden Contour Next Test - subcutaneously 3 times a day test blood sugar 8h Active Multiple Vitamins-Iron - Orally Once a day 1 tablet 24h Active Cyanocobalamin 1000 MCG Orally Once a day 1 tablet 24h Active SudoGest 60 mg Orally every 6 hrs 1 tablet as needed 6h September, 07 days Active Duloxetine HCl 60 MG Orally Once a day 1 capsule 24h 30 days Active Vitamin D-3 1000 UNIT Orally Once a day 2 capsule 24h Active Calcium 600-200 MG-UNIT Active Microlet Lancets 0 USE DIRECTED THREE TIMES DAILY 30 Active Lantus SoloStar 100 8 units 12h Active ProAir HFA cfc free 90 mcg/inh INHALE 2 PUFFS BY MOUTH FOUR TIMES DAILY NEEDED 25 Active Oxycodone-Acetaminophen 10-325 MG Orally 4 times a day 1 tablet as needed 6h 15 Oct, 2017 28 days Active Omeprazole 40 mg 1 CAP(S) ONCE A DAY ORALLY 30 DAYS 30 Active Ondansetron 8 MG DISSOLVE ONE (1) TABLET ON THE TONGUE EVERY SIX (6) HOURS 5 Active Promethazine HCl 25 MG Orally every 6 hours 1 tablet 6h 30 Active Tizanidine HCl 4 MG Orally 2 times a day 1 tablet 12h 30 Active Advair HFA 115-21 MCG/ACT Inhalation Twice a day 2 puffs 12h Nov, Active Marinol 5 mg Orally Twice a day 1 capsule before lunch and supper 12h 28 days Active Lyrica 150 MG Orally Twice a day 1 capsule 12h 30 days Active Cyclobenzaprine HCl 10 TAKE 1 TABLET BY MOUTH THREE TIMES DAILY 30 Active Maxalt 5 mg Orally daily as needed Take 1 tablet when headache begins; repeat in 2 hours if not better. Not to take more than 30 mg daily September, 30 days Active Quad Cane - as directed 24h Apr, Active Doxepin HCl 10 MG Orally Once a day 1 capsule at bedtime 24h September, 30 days Active Humalog KwikPen 100 INJECT 5 UNITS SUB-Q THREE TIMES DAILY BOFORE MEALS Active RESULTS No Results PROCEDURES Procedure Date Ordered Result Body [facility] 2017 [facility] VISIT ESTABLISHED PATIENT December 02, 2017 NATHANIEL, ROUTINE* December 02, 2017 INSTRUCTIONS MEDICATIONS ADMINISTERED No Known Medications [...] vomitting-[facility] 03/05/17 Hospitalization History hospital stay at [facility] for stomach issues 2016
--- OUTSIDE RECORDS SUMMARY | 2018-05-04 15:51 | XMS REPORT ---
Author Author HORACE HIGGINS [facility] Address [address] [place] [address] Care Team Providers Care Furnace Room Supervisor Name Role Phone HORACE HIGGINS Unavailable PROBLEMS Type Condition ICD9-CM Code ETT38-PY Code Onset Dates Condition Status SNOMED Code Problem Primary insomnia F51.01 Active 3821935 Problem Reactive depression F32.9 Active 13480035 Problem Asthma exacerbation J45.901 Active 408226916 Problem Irritable bowel syndrome with constipation K58.1 Active 323808227 Problem Back pain M54.9 Active 869287447 Problem Tobacco dependency F17.200 Active 25029942 Problem Low TSH level R94.6 Active 419086626 Problem PTSD (post-traumatic stress disorder) F43.10 Active 74691392 Problem Diabetic polyneuropathy associated with type 2 diabetes mellitus E11.42 Active 73457613 Problem Annual physical exam Z00.00 Active 438578881 Problem Migraine without aura and without status migrainosus, not intractable G43.009 Active 274402361 Problem Gastroparesis K31.84 Active 394174521 Problem 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 Active 849119544 Problem Neuropathy G62.9 Active 575220021 Problem Diabetes E11.9 Active 89796380 Problem Uncomplicated asthma, unspecified asthma severity J45.909 Active 188443209 Problem Anorexia R63.0 Active 39483818 Problem Mixed hyperlipidemia E78.2 Active 812186866 Problem Weight loss R63.4 Active 433825172 Problem Type 2 diabetes mellitus with diabetic autonomic (poly)neuropathy E11.43 Active 67147500 Problem History of colon polyps Z86.010 Active [id number] ALLERGIES No Information ENCOUNTERS Encounter Location Date Diagnosis [facility] [address] [facility] [id number] [address] Jan, [facility] [address] [id number] [address] Jan, [facility] [id number] [place] [address] 93418- 6872 Jan, [facility] [address] 47742- 2237 Jan, [facility] [address] 48611- 8986 Jan, [facility] [address] 00998- 2266 Dec, Right upper quadrant abdominal pain R10.11 [facility] [address] 62706- 0997 Dec, PTSD (post-traumatic stress disorder) F43.10 [place] [address] 94629- 1501 Dec, LLQ pain R10.32 [place] [address] 74853- 5063 Dec, Other dorsalgia M54.89 [place] [id number] [place] [address] 21222- 6028 Dec, Neuropathy G62.9 [facility] [address] 82388- 8503 Dec, [facility] [id number] [place] [address] 32243- 0958 Nov, Irritable bowel syndrome with constipation K58.1 ; Uncomplicated asthma, unspecified asthma severity J45.909 and Type 2 diabetes mellitus with diabetic autonomic (poly)neuropathy E11.43 [facility] [address] [id number] Nov, Dental examination Z01.20 [facility] [id number] [place] [address] 15453- 9348 Nov, Other dorsalgia M54.89 [facility] [address] 08015- 0065 Nov, LLQ pain R10.32 ; Low TSH level R94.6 and Gastroparesis K31.84 [place] [address] 41219- 9628 Nov, Anorexia R63.0 [place] [address] 21549- 4069 Nov, Asthma exacerbation J45.901 [place] [address] 548768- 8997 Oct, PTSD (post-traumatic stress disorder) F43.10 [place] [address] 99287- 2701 Oct, [place] [address] 69496- 2911 Oct, PTSD (post-traumatic stress disorder) F43.10 and Tobacco dependency F17.200 [place] [address] 59744- 7375 Oct, [place] [address] 45416- 9997 Oct, Other dorsalgia M54.89 [place] [address] 32184- 2799 Oct, Anorexia R63.0 [place] [id number] [place] [address] 39644- 6230 September, PTSD (post-traumatic stress disorder) F43.10 [place] [id number] [place] [address] 22756- 1850 September, Low TSH level R94.6 [place] [id number] [place] [address] 73611- 6612 September, Other dorsalgia M54.89 [place] [address] 42792- 2089 September, Annual physical exam Z00.00 and Migraine without aura and without status migrainosus, not intractable G43.009 [place] [address] 719 September, Abnormal TSH R94.6 and Dysfunction of left eustachian tube H69.82 [facility] [address] 195 Aug, [facility] [address] 310 Aug, Anorexia R63.0 [facility] [address] [id number] Aug, Dental examination Z01.20 and Xerostomia K11.7 [place] [address] 58567 3859 Aug, Neuropathy G62.9 [place] [address] 47801 4717 Aug, [place] [address] 06012- 0142 Aug, Other dorsalgia M54.89 [place] [address] 16864- 2857 Aug, Type 2 diabetes mellitus with diabetic autonomic (poly) neuropathy E11.43 ; Diabetic polyneuropathy associated with type 2 diabetes mellitus E11.42 ; Bronchitis J40 ; Gastroparesis K31.84 and Reactive depression F32.9 [place] [id number] [place] [address] 35075- 2912 Aug, PTSD (post-traumatic stress disorder) F43.10 [place] [address] [id number] 408 Aug, Other dorsalgia M54.89 and Anorexia R63.0 [place] [address] 89780- 4941 Jul, [place] [address] [address] 2546 Jul, Other dorsalgia M54.89 [facility] [id number] [place] [address] 85942 2546 Jul, [facility] [id number] [place] [address] 42251 2546 Jul, [facility] [id number] [place] [address] 94035 2546 Jul, PTSD (post-traumatic stress disorder) F43.10 [facility] [id number] [place] [address] 10575 2546 Jul, [facility] [id number] [place] [address] 14608 2546 Jul, [facility] [id number] [place] [address] 69555 2546 Jul, [facility] [id number] [place] [address] 69639 2546 Jul, Anorexia R63.0 [facility] [id number] [place] [address] 52964 2546 Jun, [facility] [id number] [place] [address] 34100 2546 Jun, Vaginal discharge N89.8 ; Visit for gynecologic examination Z01.419 and Pelvic pressure in female R10.2 [facility] [address] [place] [address] 27722 2546 Jun, [facility] [id number] [place] [address] 87854 2546 Jun, Other dorsalgia M54.89 [facility] [id number] [place] [address] 98801 2546 16 Jun, 2017 [facility] [id number] [place] [address] 13827- 2546 Jun, [facility] [id number] [place] [address] 15376- 5746 Jun, [facility] [id number] [place] [address] 79123- 4036 May, Back pain M54.9 [facility] [address] 68603- 7066 May, Anorexia R63.0 [facility] [address] 27317- 9744 May, Other dorsalgia M54.89 [facility] [address] 87813- 3870 May, [facility] [id number] [place] [address] 78641- 4282 May, Bronchitis J40 [facility] [address] 72416- 9276 May, Type 2 diabetes mellitus with diabetic autonomic (poly) neuropathy E11.43 ; 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 ; Back pain M54.9 and Neuropathy G62.9 [facility] [id number] [place] [address] 72810- 3371 May, Left breast mass N63.20 [facility] [id number] [place] [address] 84093- 8026 May, [facility] [id number] [place] [address] 76788 2547 Apr, Other dorsalgia M54.89 [facility] [id number] [place] [address] 96823- 5256 Apr, Anorexia R63.0 [facility] [id number] [place] [address] 17683- 8016 Apr, Anorexia R63.0 [facility] [id number] [place] [address] 83271- 8068 Apr, Mass of left breast N63.20 [facility] [id number] [place] [address] 20944- 3706 Apr, [facility] [id number] [place] [address] 67157- 8639 Apr, [facility] [id number] [place] [address] 70130- 8513 Apr, Diarrhea of presumed infectious origin A09 [facility] [id number] [place] [address] 80462- 4938 Apr, Encounter for immunization Z23 [facility] [address] 84499- 4481 Apr, [facility] [id number] [place] [address] 83208- 8052 Mar, Other dorsalgia M54.89 [facility] [id number] [place] [address] 35393- 2876 Mar, [facility] [id number] [place] [address] 67774- 9579 Mar, [facility] [id number] [place] [address] 57455- 6196 Mar, Anorexia R63.0 [facility] [id number] [place] [address] 86551- 9534 Mar, [facility] [id number] [place] [address] 32615- 6805 Mar, Other dorsalgia M54.89 [facility] [id number] [place] [address] 20872- 9505 Mar, [facility] [id number] [place] [address] 90438- 1577 Mar, Encounter for immunization Z23 [facility] [id number] [place] [address] 90060- 3220 Feb, Anorexia R63.0 [facility] [id number] [place] [address] 16116- 3978 Feb, Diabetes E11.9 [facility] [address] 61040- 6652 Feb, Back pain M54.9 and Diabetes E11.9 [facility] [address] 99816- 9191 Feb, Diabetes E11.9 [facility] [address] 50202- 1211 Feb, Neuropathy G62.9 [facility] [address] 58487- 1676 Feb, Encounter for immunization Z23 ; Epigastric pain R10.13 ; Weight loss, abnormal R63.4 and Neuropathy G62.9 [facility] [address] [id number] Feb, [facility] [address] 42872- 0042 Feb, [facility] [address] 40694- 9080 Feb, Intractable vomiting with nausea, unspecified vomiting type R11.2 [facility] [id number] [place] [address] 42115 -0619 Feb, Chronic nausea R11.0 [facility] [address] 43310- 0177 Feb, Other dorsalgia M54.89 [facility] [address] 77573- 6902 Jan, [facility] [address] 06183- 6168 Jan, [facility] [id number] [place] [address] 60290- 6216 Jan, [facility] [address] [address] 2546 08 Jan, 2017 [facility] [id number] [place] [address] 27556- 2546 08 Jan, 2017 Asthma exacerbation J45.901 ; Bronchitis J40 and Neuropathy G62.9 [facility] [id number] [place] [address] 83451- 2546 06 Jan, 2017 Anorexia R63.0 [facility] [id number] [place] [address] 12770- 2546 Jan, Other dorsalgia M54.89 [facility] [id number] [place] [address] 23239 2546 Dec, [facility] [id number] [place] [address] 56223 2546 Dec, [facility] [id number] [place] [address] 18771 2546 Dec, Anorexia R63.0 [facility] [id number] [place] [address] 41172 2546 Dec, Primary insomnia F51.01 [facility] [id number] [place] [address] 28475 2546 Dec, Other dorsalgia M54.89 [facility] [address] [place] [address] 45213 2546 Dec, [facility] [id number] [place] [address] 90837 2546 Nov, [facility] [address] [place] [address] 75499 2546 Nov, [facility] [address] [place] [address] 82013 2546 Nov, [facility] [address] [address] 2546 Nov, History of colon polyps Z86.010 [facility] [address], [place] [address]- 1070 Nov, Weight loss R63.4 ; Nausea and vomiting, intractability of vomiting not specified, unspecified vomiting type R11.2 and Abnormal LFTs R79.89 [facility] [address] [place] [address] 52875- 6766 18 Nov, 2016 [facility] [id number] [place] [address] 94283 2546 Nov, Neuropathy G62.9 and Pain in right knee M25.561 [facility] [id number] [place] [address] 46539- 8576 Nov, Back pain M54.9 [facility] [id number] [place] [address] 25897- 8366 10 Nov, 2016 [facility] [id number] [place] [address] 30499- 0685 Nov, Bronchitis J40 [facility] [id number] [place] [address] 12734- 3983 03 Nov, 2016 Weight loss R63.4 [facility] [id number] [place] [address] 97553 2546 16 Oct, 2016 Back pain M54.9 [facility] [address] [place] [address] 03069 2546 16 Oct, 2016 [facility] [address] [place] [address] 42982 2548 14 Oct, 2016 Back pain M54.9 [facility] [address] [place] [address] 27206 2546 13 Oct, 2016 Type 2 diabetes mellitus without complications E11.9 and Bronchitis J40 [facility] [address], [place] [address] 2546 05 Oct, 2016 [facility] [id number] [place] [address] 33523- 3973 Oct, [facility] [address] [place] [address] 33223- 2777 September, Gastroparesis K31.84 ; Type 2 diabetes mellitus with diabetic autonomic (poly)neuropathy E11.43 and Neuropathy G62.9 [facility] [id number] [place] [address] 06269- 9455 September, Other dorsalgia M54.89 [facility] [id number] [place] [address] 40542- 6762 September, [facility] [id number] [place] [address] 09338- 7227 September, [facility] [id number] [place] [address] 00280- 0827 Aug, Gastroparesis K31.84 and Radicular leg pain M54.10 [place] [address] 40706- 4253 Aug, Anorexia R63.0 [place] [id number] [place] [address] 75060- 1025 Aug, Bronchitis J40 [place] [id number] [place] [address] 47947- 8104 Aug, Back pain M54.9 [place] [id number] [place] [address] 59197- 1311 Aug, Routine gynecological examination Z01.419 ; Routine screening for STI (sexually transmitted infection) Z11.3 and Yeast infection of the vagina B37.3 [place] [id number] [place] [address] 70095- 2824 Jul, Other dorsalgia M54.89 [facility] [id number] [place] [address] 77503- 5058 Jul, Diabetes E11.9 and Gastroparesis K31.84 [facility] [id number] [place] [address] 44677- 2525 Jun, [facility] [id number] [place] [address] 66307- 6886 24 Jun, 2016 Back pain M54.9 [facility] [address] 28377- 3154 14 Jun, 2016 Neuropathy G62.9 [facility] [id number] [place] [address] 535282487 02 Jun, 2016 Encounter for dental examination Z01.20 [facility] [address] 26923- 9949 01 Jun, 2016 Gastroparesis 536.3 and Anorexia R63.0 [facility] [address] 11272- 5860 May, Other dorsalgia M54.89 [facility] [address] 66249- 7300 May, Periumbilical abdominal pain R10.33 ; Weight loss R63.4 and Gastroparesis K31.84 [facility] [id number] [place] [address] 91778- 0385 May, Back pain M54.9 [facility] [address] 88959- 4320 Apr, Anorexia R63.0 [facility] [address] 49631- 9123 Apr, Anorexia R63.0 [facility] [id number] [place] [address] 81301- 0794 Apr, Back pain M54.9 [facility] [address] 59049- 8414 15 Apr, 2016 Back pain M54.9 [facility] [address] 87363- 2936 Apr, [facility] [address] 78198- 7434 Apr, Bronchitis J40 and Neuropathy G62.9 [place] [address] 04772- 9812 Apr, Neuropathy G62.9 [facility] [address] 30996- 5539 Apr, [facility] [address] 53105- 7419 Apr, Back pain M54.9 [place] [address] 06507- 0553 Mar, Type 2 diabetes mellitus with diabetic autonomic (poly) neuropathy E11.43 [place] [address] 97200- 3594 Mar, Type 2 diabetes mellitus without complications E11.9 [place] [address] 16491- 1104 Mar, Neuropathy G62.9 [place] [address] 14890- 8275 Mar, [place] [address] 10129- 8151 Mar, Breast cancer screening Z12.39 [place] [address] 46326- 0526 Mar, Other dorsalgia M54.89 [place] [address] 75079- 8986 Feb, [place] [address] 29552- 0183 Jan, Neuropathy G62.9 ; Type 2 diabetes mellitus with diabetic autonomic (poly)neuropathy E11.43 ; Uncomplicated asthma, unspecified asthma severity J45.909 and Encounter for immunization Z23 [place] [address] 52320- 6319 Jan, [facility] [address] [address]- 9251 Jan, [facility] [id number] [place] [address] 71564- 0812 Dec, [facility] [id number] [place] [address] 67825- 4988 Dec, [facility] [id number] [place] [address] 58687- 4522 Nov, [facility] [id number] [place] [address] 55107- 5607 Nov, Back pain M54.9 [facility] [id number] [place] [address] 98121- 6757 Nov, Neuropathy G62.9 ; Mixed hyperlipidemia E78.2 ; Type 2 diabetes mellitus with diabetic autonomic (poly)neuropathy E11.43 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 [facility] [id number] [place] [address] 18051- 0520 Oct, [facility] [id number] [place] [address] 87511- 3751 Oct, Other dorsalgia M54.89 [facility] [id number] [place] [address] 19482- 8445 September, Primary insomnia F51.01 [facility] [id number] [place] [address] 88608- 2026 September, [facility] [id number] [place] [address] 80564- 9063 Aug, Other dorsalgia M54.89 [facility] [id number] [place] [address] 72031- 7166 Jul, [facility] [address] [place] [address] 99743- 6359 Jul, Other dorsalgia M54.89 [facility] [id number] [place] [address] 30673- 2410 Jul, Diabetes E11.9 ; Back pain M54.9 ; Neuropathy G62.9 and Gastroparesis K31.84 [facility] [id number] [place] [address] 37227- 4602 Jun, [facility] [id number] [place] [address] 96051- 6386 Jun, Other dorsalgia M54.89 [facility] [id number] [place] [address] 51141- 8937 May, [facility] [address] [address]- [address]7 May, Radicular leg pain M54.10 and Other dorsalgia M54.89 [facility] [id number] [place] [address] 83007- 3189 Apr, [facility] [id number] [place] [address] 36734- 0377 Mar, [facility] [id number] [place] [address] 09367- 5506 Mar, [facility] [id number] [place] [address] 23456- 0208 Mar, Radicular leg pain M54.10 [facility] [id number] [place] [address] 87858- 6166 Feb, [facility] [id number] [place] [address] 44525- 2545 Feb, [facility] [id number] [place] [address] 13738- 8161 Feb, [facility] [id number] [place] [address] 12353- 2548 Jan, [facility] [id number] [place] [address] 60284- 9132 Jan, IBS (irritable bowel syndrome) 564.1 [facility] [id number] [address] Jan, [facility] [id number] [place] [address] 68503- 5301 Jan, [facility] [id number] [place] [address] 52373- 0572 Jan, Diabetes mellitus without mention of complication, type II or unspecified type, not stated as uncontrolled 250.00 ; Gastroparesis 536.3 and Hypoacusis 389.9 [facility] [id number] [place] [address] 96768- 6940 Jan, [facility] [id number] [place] [address] 84543- 6862 Jan, [facility] [id number] [place] [address] 59218- 3157 Dec, [facility] [id number] [place] [address] 99210- 0228 Dec, [facility] [id number] [place] [address] 54912- 1816 Dec, [facility] [id number] [place] [address] 08558- 8334 Dec, Back pain 724.5 and Gastroparesis 536.3 [facility] [id number] [place] [address] 72329- 8517 Nov, [facility] [id number] [place] [address] [id number] Nov, Dental examination V72.2 [facility] [id number] [place] [address] 10359- 8739 Nov, [facility] [id number] [place] [address] 22285- 1462 Nov, [facility] [id number] [place] [address] 97441- 2614 Nov, Depressive disorder, not elsewhere classified 311 and No condition on [place] II V71.09 [facility] [id number] [place] [address] 91308- 4536 Nov, Diabetes 250.00 and Symptomatic menopausal or female climacteric states 627.2 [facility] [id number] [address]- [address] Oct, [facility] [id number] [place] [address] 02190- 8840 Oct, Lumbar strain 847.2 [facility] [id number] [place] [address] [id number] Oct, Gastroparesis 536.3 and Unspecified myalgia and myositis 729.1 [facility] [id number] [address] Aug, [facility] [id number] [place] [address] Aug, [facility] [id number] [address] Jul, [facility] [id number] [address] Jul, [facility] [id number] [address] Jul, [facility] [id number] [address] Jul, [facility] [id number] [address] Jul, [facility] [id number] [address] 18 Jun, 2014 [facility] [id number] [id number] Jun, [facility] [address] [id number] [place] [address] Jun, [facility] [place] [facility] [address] [id number] [place] [address] May, [facility] [place] [facility] [address] [id number] [place] [address] May, [facility] [place] [facility] [address] [id number] [place] [address]- [address] Mar, [facility] [place] [facility] [address] [id number] [place] [address]- [address] Mar, [facility] [place] [facility] [address] [id number] [place] [address] Mar, [facility] [place] [facility] [address] [id number] [place] [address]- [address] Mar, [facility] [place] [facility] [address] [id number] [place] [address]- [address]255 Mar, [facility] [place] [facility] [address] [id number] [place] [address]- [address] Mar, [facility] [place] [facility] [address] [id number] [place] [address]- [address] Feb, [facility] [place] [facility] [address] [id number] [place] [address]- [address] Feb, [facility] [place] [facility] [address] [id number] [place] [address] Nov, [facility] [place] [facility] [address] [id number] [place] [address]- [address] Nov, [facility] [place] [facility] [address] [id number] [place] [address]- [address] Nov, [facility] [place] [facility] [address] [id number] [place] [address]- [address] Oct, [facility] [place] [facility] [address] [id number] [place] [address]- [address] September, [facility] [address] [id number] [place] [address]- [address] Aug, [facility] [place] [facility] [address] [id number] [place] [address]- [address] Aug, [facility] [place] [facility] [address] [id number] [place] [address]- [address]487 Aug, [facility] [place] [facility] [address] [id number] [place] [address]- [address]451 Aug, [facility] [place] [facility] [address] [id number] [place] [address]- 9314 Aug, [facility] [place] [facility] [address] [id number] [place] [address]- [address] Aug, [facility] [place] [facility] [address] [id number] [place] [address]- [address] Aug, [facility] [place] [facility] [address] [id number] [place] [address]- [address] Aug, [facility] [place] [facility] [address] [id number] [place] [address]- [address]682 Jul, [facility] [place] [facility] [address] [id number] [place] [address]- [address] Jul, [facility] [place] [facility] [address] [id number] [place] [address]- 20[address] Jun, [facility] [place] [facility] [address] [id number] [address] Jun, [facility] [place] [facility] [address] [id number] [place] [address]- [address] Jun, [facility] [place] [facility] [address] [id number] [place] [address]- 244[address] Jun, [facility] [place] [facility] [address] [id number] [place] [address]- [address] Jun, [facility] [place] [facility] [id number] [address] Jun, [facility] [address] [id number] [address] Jun, [facility] [address] [id number] [address]- [address] May, [facility] [address] [id number] [address]- [address] May, [facility] [id number] [address]- [address] May, [facility] [address] [address]- [address] May, [facility] [address], [place] [address]- [address] Mar, [facility] [address], [place] [address]- [address] Mar, [facility] [address] [facility] [id number] [address] Jan, IMMUNIZATIONS No Known Immunizations SOCIAL HISTORY Never Assessed REASON FOR VISIT Oxycodone 12/05 PLAN OF CARE VITAL SIGNS MEDICATIONS Medication Instructions Dosage Frequency Start Date End Date Duration Status Oxycodone-Acetaminophen 10-325 MG Orally 4 times a day 1 tablet as needed 6h Nov, 28 days Active RESULTS No Results [...] vomitting-[facility] 03/05/17 Hospitalization History hospital stay at [facility] for stomach issues 2016
--- OUTSIDE RECORDS SUMMARY | 2018-05-04 15:51 | XMS REPORT ---
Author Author HORACE HIGGINS [facility] Address [address] [place] [address] Care Team Providers Care Emergency Room Clinician Name Role Phone HORACE HIGGINS Unavailable PROBLEMS Type Condition ICD9-CM Code DQS31-ST Code Onset Dates Condition Status SNOMED Code Problem Primary insomnia F51.01 Active 0812961 Problem Reactive depression F32.9 Active 78952603 Problem Asthma exacerbation J45.901 Active 543661465 Problem Irritable bowel syndrome with constipation K58.1 Active 160729103 Problem Back pain M54.9 Active 940957215 Problem Tobacco dependency F17.200 Active 90719021 Problem Low TSH level R94.6 Active 420437019 Problem PTSD (post-traumatic stress disorder) F43.10 Active 90557881 Problem Diabetic polyneuropathy associated with type 2 diabetes mellitus E11.42 Active 63535042 Problem Annual physical exam Z00.00 Active 742499140 Problem Migraine without aura and without status migrainosus, not intractable G43.009 Active 965203888 Problem Gastroparesis K31.84 Active 445532799 Problem 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 current use of insulin Z79.4 Active 412099058 Problem Neuropathy G62.9 Active 822884233 Problem Diabetes E11.9 Active 90824631 Problem Uncomplicated asthma, unspecified asthma severity J45.909 Active 365134201 Problem Anorexia R63.0 Active 10379265 Problem Mixed hyperlipidemia E78.2 Active 041711553 Problem Weight loss R63.4 Active 756132202 Problem Type 2 diabetes mellitus with diabetic autonomic (poly)neuropathy E11.43 Active 74544002 Problem History of colon polyps Z86.010 Active 831611299 ALLERGIES Substance Reaction Event Type Date Status Coumadin vomitied blood Drug Allergy Nov, Active Toradol swells, itch from inside out Drug Allergy Nov, Active Nsaids (non-steroidal Anti-inflammatory Drug) triggers asthma, can't breathe, swells form inside out. Non Drug Allergy Nov, Active ENCOUNTERS Encounter Location Date Diagnosis [facility] [address] [address] Jan, [facility] [id number] [place] [address] 80047- 9003 17 Jan, 2018 [facility] [id number] [place] [address] 16965- 5951 Jan, [facility] [id number] [place] [address] 87365- 9696 05 Jan, 2018 [facility] [id number] [place] [address] 23512- 0247 Jan, [facility] [id number] [place] [address] 15144- 7338 Jan, [facility] [id number] [place] [address] 49665- 5470 Dec, Right upper quadrant abdominal pain R10.11 [facility] [id number] [place] [address] 52043- 8783 Dec, PTSD (post-traumatic stress disorder) F43.10 [facility] [id number] [place] [address] 94699- 8523 Dec, LLQ pain R10.32 [facility] [id number] [place] [address] 73183- 3868 Dec, Other dorsalgia M54.89 [facility] [id number] [place] [address] 19227- 1231 Dec, Neuropathy G62.9 [facility] [id number] [place] [address] 96485- 9236 Dec, [facility] [id number] [place] [address] 00134- 2841 Nov, Irritable bowel syndrome with constipation K58.1 ; Uncomplicated asthma, unspecified asthma severity J45.909 and Type 2 diabetes mellitus with diabetic autonomic (poly)neuropathy E11.43 [facility] [id number] [place] [address] [id number] Nov, Dental examination Z01.20 [facility] [id number] [place] [address] 28336- 4698 Nov, Other dorsalgia M54.89 [facility] [id number] [place] [address] 95993- 9518 Nov, LLQ pain R10.32 ; Low TSH level R94.6 and Gastroparesis K31.84 [facility] [address] 73557- 4195 Nov, Anorexia R63.0 [facility] [id number] [place] [address] 94897- 5536 Nov, Asthma exacerbation J45.901 [facility] [address] 43316- 7609 Oct, PTSD (post-traumatic stress disorder) F43.10 [facility] [id number] [place] [address] 64557- 1092 Oct, [facility] [id number] [place] [address] 15078- 8144 Oct, PTSD (post-traumatic stress disorder) F43.10 and Tobacco dependency F17.200 [facility] [id number] [place] [address] 38502- 5256 Oct, [facility] [id number] [place] [address] 80692- 8639 14 Oct, 2017 Other dorsalgia M54.89 [facility] [id number] [place] [address] 08108- 7538 04 Oct, 2017 Anorexia R63.0 [facility] [id number] [place] [address] 47697- 5299 September, PTSD (post-traumatic stress disorder) F43.10 [facility] [address] 14955- 7896 September, Low TSH level R94.6 [facility] [phone]- 0097 September, Other dorsalgia M54.89 [facility] [address] 62026- 8604 September, Annual physical exam Z00.00 and Migraine without aura and without status migrainosus, not intractable G43.009 [facility] [address] [id number]- 9866 September, Abnormal TSH R94.6 and Dysfunction of left eustachian tube H69.82 [facility] [address] 25021- 2506 Aug, [facility] [address] 78352- 6690 Aug, Anorexia R63.0 [facility] [address] [id number] Aug, Dental examination Z01.20 and Xerostomia K11.7 [facility] [address] 84450- 4300 Aug, Neuropathy G62.9 [facility] [address] 00506- 5326 Aug, [facility] [address] 56553- 8757 Aug, Other dorsalgia M54.89 [facility] [address] 98233- 6582 Aug, Type 2 diabetes mellitus with diabetic autonomic (poly) neuropathy E11.43 ; Diabetic polyneuropathy associated with type 2 diabetes mellitus E11.42 ; Bronchitis J40 ; Gastroparesis K31.84 and Reactive depression F32.9 [facility] [address] [id number]- 7085 Aug, PTSD (post-traumatic stress disorder) F43.10 [facility] [address] [place] [address] 21429 2546 Aug, Other dorsalgia M54.89 and Anorexia R63.0 [facility] [id number] [place] [address] 48084 2546 Jul, [facility] [id number] [place] [address] 72318 2546 Jul, Other dorsalgia M54.89 [facility] [id number] [place] [address] 86052 2546 Jul, [facility] [id number] [place] [address] 17595 2546 Jul, [facility] [id number] [place] [address] 89833 2546 Jul, PTSD (post-traumatic stress disorder) F43.10 [facility] [id number] [place] [address] 77781 2546 Jul, [facility] [id number] [place] [address] 52590 2546 Jul, [facility] [id number] [place] [address] 89538 2546 Jul, [facility] [id number] [place] [address] 92167 2546 Jul, Anorexia R63.0 [facility] [address] [place] [address] 42659 2546 Jun, [facility] [id number] [place] [address] 79648 2546 Jun, Vaginal discharge N89.8 ; Visit for gynecologic examination Z01.419 and Pelvic pressure in female R10.2 [facility] [id number] [place] [address] 97086 2546 Jun, [facility] [id number] [place] [address] 32774- 4739 Jun, Other dorsalgia M54.89 [facility] [id number] [place] [address] 86311- 1174 Jun, [facility] [address] 36978- 9936 Jun, [facility] [address] 21677- 9001 Jun, [facility] [id number] [place] [address] 91312- 8584 May, Back pain M54.9 [facility] [id number] [place] [address] 12986- 6365 May, Anorexia R63.0 [facility] [address] 99811- 7365 May, Other dorsalgia M54.89 [facility] [id number] [place] [address] 17148- 2396 May, [facility] [address] 13054- 0603 May, Bronchitis J40 [facility] [id number] [place] [address] 07209- 2033 May, Type 2 diabetes mellitus with diabetic autonomic (poly) neuropathy E11.43 ; alf current use of insulin Z79.4 ; Back pain M54.9 and Neuropathy G62.9 [facility] [id number] [place] [address] 61557- 2222 May, Left breast mass N63.20 [facility] [id number] [place] [address] 82338- 2105 May, [facility] [id number] [place] [address] 41052- 7140 Apr, Other dorsalgia M54.89 [facility] [address] [place] [address] 69209 2546 Apr, Anorexia R63.0 [facility] [id number] [place] [address] 28704 2546 Apr, Anorexia R63.0 [facility] [id number] [place] [address] 52459 2546 Apr, Mass of left breast N63.20 [facility] [id number] [place] [address] 44247 2546 Apr, [facility] [id number] [place] [address] 68165- 4416 Apr, [facility] [id number] [place] [address] 18068 2547 Apr, Diarrhea of presumed infectious origin A09 [facility] [address] 35388 2548 Apr, Encounter for immunization Z23 [facility] [id number] [place] [address] 03586- 0648 Apr, [facility] [id number] [place] [address] 80887- 8631 Mar, Other dorsalgia M54.89 [facility] [id number] [place] [address] 77044 2546 Mar, [facility] [id number] [place] [address] 42259 2548 Mar, [facility] [id number] [place] [address] 01492 2546 Mar, Anorexia R63.0 [facility] [id number] [place] [address] 60431- 2546 Mar, [facility] [id number] [place] [address] 19158 2545 Mar, Other dorsalgia M54.89 [facility] [id number] [place] [address] 20944- 2083 Mar, [facility] [id number] [place] [address] 34340- 1660 Mar, Encounter for immunization Z23 [facility] [id number] [place] [address] 74014- 5753 Feb, Anorexia R63.0 [facility] [address] 80040- 3400 Feb, Diabetes E11.9 [facility] [id number] [place] [address] 03965- 3181 Feb, Back pain M54.9 and Diabetes E11.9 [facility] [id number] [place] [address] 28347- 3273 Feb, Diabetes E11.9 [facility] [address] 92244- 2380 Feb, Neuropathy G62.9 [facility] [id number] [place] [address] 59361- 8693 Feb, Encounter for immunization Z23 ; Epigastric pain R10.13 ; Weight loss, abnormal R63.4 and Neuropathy G62.9 [facility] [id number] [place] [address] [id number] Feb, [facility] [id number] [place] [address] 36205- 5040 Feb, [facility] [id number] [place] [address] 24062- 5032 Feb, Intractable vomiting with nausea, unspecified vomiting type R11.2 [facility] [id number] [place] [address] 03599 -4504 Feb, Chronic nausea R11.0 [facility] [id number] [place] [address] 86061- 2595 Feb, Other dorsalgia M54.89 [facility] [id number] [place] [address] 91593 2546 Jan, [facility] [address] 21182 2546 Jan, [facility] [id number] [place] [address] 69628 2546 Jan, [facility] [address] 40390 2546 Jan, [facility] [id number] [place] [address] 70602 2546 Jan, Asthma exacerbation J45.901 ; Bronchitis J40 and Neuropathy G62.9 [facility] [id number] [place] [address] 67137 2546 Jan, Anorexia R63.0 [facility] [address] 88569 2546 Jan, Other dorsalgia M54.89 [facility] [id number] [place] [address] 11982 2546 Dec, [facility] [id number] [place] [address] 47829 2546 Dec, [facility] [id number] [place] [address] 33718 2546 Dec, Anorexia R63.0 [facility] [id number] [place] [address] 93108 2546 Dec, Primary insomnia F51.01 [facility] [id number] [place] [address] 87533 2546 Dec, Other dorsalgia M54.89 [facility] [id number] [place] [address] 00385 2546 Dec, [facility] [id number] [place] [address] 59924 2546 Nov, [facility] [address] [address]- 4731 Nov, [facility] [id number] [place] [address] 64982- 1436 Nov, [facility] [id number] [place] [address] 28419- 2481 Nov, History of colon polyps Z86.010 [facility] [id number] [place] [address] 67916- 4950 Nov, Weight loss R63.4 ; Nausea and vomiting, intractability of vomiting not specified, unspecified vomiting type R11.2 and Abnormal LFTs R79.89 [facility] [id number] [place] [address] 09285- 7179 Nov, [facility] [id number] [place] [address] 05142- 0098 Nov, Neuropathy G62.9 and Pain in right knee M25.561 [facility] [id number] [place] [address] 76839- 0042 Nov, Back pain M54.9 [facility] [id number] [place] [address] 81551- 7978 Nov, [facility] [id number] [place] [address] 34500- 4954 Nov, Bronchitis J40 [facility] [address] [place] [address] 59159- 5633 Nov, Weight loss R63.4 [facility] [address] [place] [address] 86141- 3367 Oct, Back pain M54.9 [facility] [address] [place] [address] 86579- 9451 Oct, [facility] [address] [address]- 1322 Oct, Back pain M54.9 [facility] [id number] [place] [address] 38426- 0297 Oct, Type 2 diabetes mellitus without complications E11.9 and Bronchitis J40 [facility] [id number] [place] [address] 07484- 8671 Oct, [facility] [id number] [place] [address] 96641- 0259 Oct, [facility] [id number] [place] [address] 04321- 2735 September, Gastroparesis K31.84 ; Type 2 diabetes mellitus with diabetic autonomic (poly)neuropathy E11.43 and Neuropathy G62.9 [facility] [id number] [place] [address] 70372- 2669 September, Other dorsalgia M54.89 [facility] [id number] [place] [address] 18582- 2471 September, [facility] [id number] [place] [address] 44041- 2380 September, [facility] [id number] [place] [address] 68424- 9844 Aug, Gastroparesis K31.84 and Radicular leg pain M54.10 [facility] [id number] [place] [address] 35379- 7695 Aug, Anorexia R63.0 [facility] [id number] [place] [address] 66307- 0280 Aug, Bronchitis J40 [facility] [id number] [place] [address] 13005- 1941 Aug, Back pain M54.9 [facility] [id number] [place] [address] 17067- 2656 Aug, Routine gynecological examination Z01.419 ; Routine screening for STI (sexually transmitted infection) Z11.3 and Yeast infection of the vagina B37.3 [facility] [id number] [place] [address] 07114- 8555 Jul, Other dorsalgia M54.89 [facility] [address] 50104- 4571 Jul, Diabetes E11.9 and Gastroparesis K31.84 [facility] [address] 73165- 4315 Jun, [facility] [address] 07535- 6834 Jun, Back pain M54.9 [facility] [address] 31933- 4130 Jun, Neuropathy G62.9 [facility] [address] [id number] 02 Jun, 2016 Encounter for dental examination Z01.20 [facility] [address] 33753- 3898 Jun, Gastroparesis 536.3 and Anorexia R63.0 [facility] [address] 70962- 5489 May, Other dorsalgia M54.89 [facility] [id number] [place] [address] 52916- 8273 May, Periumbilical abdominal pain R10.33 ; Weight loss R63.4 and Gastroparesis K31.84 [facility] [id number] [place] [address] 31877- 6058 May, Back pain M54.9 [facility] [address] 67486- 1931 Apr, Anorexia R63.0 [facility] [address] 77400- 2699 Apr, Anorexia R63.0 [facility] [address] 21601- 0264 Apr, Back pain M54.9 [facility] [id number] [place] [address] 97530- 2201 Apr, Back pain M54.9 [facility] [id number] [place] [address] 42688- 3816 Apr, [facility] [address] 22644- 0285 Apr, Bronchitis J40 and Neuropathy G62.9 [facility] [id number] [place] [address] 42514- 4397 Apr, Neuropathy G62.9 [facility] [address] 29904- 8846 Apr, [facility] [id number] [place] [address] 49731- 6991 Apr, Back pain M54.9 [facility] [id number] [place] [address] 46209- 9449 Mar, Type 2 diabetes mellitus with diabetic autonomic (poly) neuropathy E11.43 [facility] [address] 58680- 0829 Mar, Type 2 diabetes mellitus without complications E11.9 [facility] [id number] [place] [address] 85344- 9091 Mar, Neuropathy G62.9 [facility] [id number] [place] [address] 61709- 1937 Mar, [facility] [id number] [place] [address] 12075- 5151 Mar, Breast cancer screening Z12.39 [facility] [id number] [place] [address] 74331- 2084 Mar, Other dorsalgia M54.89 [facility] [id number] [place] [address] 68012- 9914 Feb, [facility] [id number] [place] [address] 83311- 0613 30 Jan, 2016 Neuropathy G62.9 ; Type 2 diabetes mellitus with diabetic autonomic (poly)neuropathy E11.43 ; Uncomplicated asthma, unspecified asthma severity J45.909 and Encounter for immunization Z23 [facility] [id number] [place] [address] [phone] Jan, [facility] [address] [address] Jan, [facility] [address] [address]- [address] Dec, [place] [address] [address] Dec, [facility] [address] [address]- [address] Nov, [facility] [address] [address]- [address] Nov, Back pain M54.9 [place] [address] [address]- [address] Nov, Neuropathy G62.9 ; Mixed hyperlipidemia E78.2 ; Type 2 diabetes mellitus with diabetic autonomic (poly)neuropathy E11.43 and alf current use of insulin Z79.4 [place] [id number] [place] [address] [phone]- [phone] Oct, [facility] [id number] [place] [address] 48074- 6210 Oct, Other dorsalgia M54.89 [place] [address] [address]- [address] September, Primary insomnia F51.01 [facility] [address] [address]- [address] September, [facility] [address] [address]- [address] Aug, Other dorsalgia M54.89 [facility] [id number] [place] [address] [phone] Jul, [facility] [id number] [place] [address] 99624- 6548 Jul, Other dorsalgia M54.89 [facility] [address] [address]- [address] Jul, Diabetes E11.9 ; Back pain M54.9 ; Neuropathy G62.9 and Gastroparesis K31.84 [facility] [address] [address]- [address]67 Jun, [facility] [address] [address]- [address] Jun, Other dorsalgia M54.89 [facility] [address] 0[address]- [address] May, [facility] [id number] [place] [address] 88026- 3119 May, Radicular leg pain M54.10 and Other dorsalgia M54.89 [facility] [id number] [place] [address] [phone]- [phone] Apr, [facility] [id number] [place] [address] [phone]- 2704 Mar, [facility] [id number] [place] [address] [phone] Mar, [facility] [id number] [place], [place] [address]16- 9365 Mar, Radicular leg pain M54.10 [facility] [id number] [place] [address] 08580- 9617 Feb, [facility] [address] [address] Feb, [facility] [id number] [place] [address] 64544- 0162 Feb, [facility] [id number] [place] [address] 62678- 3604 Jan, [facility] [id number] [place] [address] 55345- 6427 Jan, IBS (irritable bowel syndrome) 564.1 [facility] [id number] [place] [address] 11661- 2988 Jan, [facility] [id number] [place] [address] 25407- 1587 Jan, [facility] [id number] [place] [address] 12723- 8237 Jan, Diabetes mellitus without mention of complication, type II or unspecified type, not stated as uncontrolled 250.00 ; Gastroparesis 536.3 and Hypoacusis 389.9 [facility] [id number] [place] [address] 17743- 9757 Jan, [facility] [id number] [place] [address] 21344- 7244 Jan, [facility] [id number] [place] [address] 11096- 5940 Dec, [facility] [id number] [place] [address] 66414- 7600 Dec, [facility] [id number] [place] [address] 55732- 7134 Dec, [facility] [id number] [place] [address] 30174- 9495 Dec, Back pain 724.5 and Gastroparesis 536.3 [facility] [id number] [place] [address] 14649- 9000 Nov, [facility] [id number] [place] [address] [id number] Nov, Dental examination V72.2 [facility] [address] [address] 8[address] Nov, [facility] [address] [address] Nov, [facility] [address] [address] 2[address] Nov, Depressive disorder, not elsewhere classified 311 and No condition on [place] II V71.09 [facility] [address] [address] 69[address] Nov, Diabetes 250.00 and Symptomatic menopausal or female climacteric states 627.2 [facility] [address] [address] 1794 Oct, [facility] [id number] [place] [address] 14778- 7477 Oct, Lumbar strain 847.2 [facility] [address] [address] 2794 Oct, Gastroparesis 536.3 and Unspecified myalgia and myositis 729.1 [facility] [address] [address] 57[address] 14 Aug, 2014 [facility] [address] [address] 6614 Aug, [facility] [address] [address] 8778 Jul, [facility] [address] [address] 6921 Jul, [facility] [address] [id number]74 Jul, [facility] [address] [address] 1802 Jul, [facility] [place] [facility] [address] [id number] [place] [address] 6664 Jul, [facility] [place] [facility] [address] [id number] [place] [address]- 4017 Jun, [facility] [place] [facility] [address] [id number] [place] [address]- 7596 Jun, [facility] [place] [facility] [address] [id number] [place] [address]- 9995 Jun, [facility] [place] [facility] [address] [id number] [place] [address]- 9213 May, [facility] [place] [facility] [address] [id number] [place] [address]- 5038 May, [facility] [place] [facility] [address] [id number] [place] [address]- 2712 Mar, [facility] [place] [facility] [address] [id number] [place] [address]- 6661 Mar, [facility] [place] [facility] [address] [id number] [place] [address]- 7700 Mar, [facility] [place] [facility] [address] [id number] [place] [address]- 3817 Mar, [facility] [place] [facility] [address] [id number] [place] [address]- 1563 Mar, [facility] [place] [facility] [address] [id number] [place] [address]- 0447 Mar, [facility] [place] [facility] [address] [id number] [place] [address]- 1371 Feb, [facility] [place] [facility] [address] [id number] [place] [address]- 7103 Feb, [facility] [place] [facility] [address] [id number] [place] [address]- 4172 Nov, [facility] [place] [facility] [address] [id number] [place] [address]- 4223 Nov, [facility] [address] [id number] [place] [address]- 3871 Nov, [facility] [place] [facility] [address] [id number] [place] [address]- 2715 Oct, [facility] [place] [facility] [address] [id number] [place] [address]- 1481 September, [facility] [place] [facility] [address] [id number] [place] [address]- 5859 Aug, [facility] [place] [facility] [address] [id number] [place] [address]- 4482 Aug, [facility] [place] [facility] [address] [id number] [place] [address]- 8169 Aug, [facility] [place] [facility] [address] [id number] [place] [address]- 4806 Aug, [facility] [place] [facility] [address] [id number] [place] [address]- 4311 Aug, [facility] [place] [facility] [address] [id number] [place] [address]- 4748 Aug, [facility] [place] [facility] [address] [id number] [place] [address]- 0296 Aug, [facility] [place] [facility] [address] [id number] [place] [address]- 1611 Aug, [facility] [place] [facility] [address] [id number] [address]- 0302 Jul, [facility] [place] [facility] [address] [id number] [place] [address]- 3928 Jul, [facility] [place] [facility] [address] [id number] [place] [address]- 2956 Jun, [facility] [place] [facility] [address] [id number] [place] [address]- 9281 Jun, [facility] [place] [facility] [address] [address]- 2546 09 Jun, 2012 [facility] [address] [address]- 5626 Jun, [facility] [address] [address]- 2546 Jun, [facility] [address] [address]- 2546 Jun, [facility] [address] [address]- 2546 Jun, [facility] [id number] [place] [address] 82037- 2894 May, [facility] [address] [address]- 0629 May, [facility] [id number] [address]- 1682 May, [facility] [address] [address]- 6325 May, [facility] [address] [address]- 4936 Mar, [facility] [address] [address]- 2526 Mar, [facility] [address] [address]- 3016 Jan, IMMUNIZATIONS No Known Immunizations SOCIAL HISTORY Never Assessed REASON FOR VISIT Asthma-MICHAEL vera, vomiting,diarrhea., fell and hit head 11/25/2017 PLAN OF CARE Activity Details Follow Up Reg appt Reason: VITAL SIGNS Height 62 in 2017-11-28 Weight 102.3 lbs 2017-11-28 Temperature 97.8 degrees Fahrenheit 2017-11-28 Heart Rate 100 bpm 2017-11-28 Respiratory Rate 18 2017-11-28 Oximetry on room air:97 % 2017-11-28 BMI 18.71 kg/m2 2017-11-28 Blood pressure systolic 104 mmHg 2017-11-28 Blood pressure diastolic 84 mmHg 2017-11-28 MEDICATIONS Medication Instructions Dosage Frequency Start Date End Date Duration Status MiraLax - Orally Once a day as needed 1 packet mixed with 8 ounces of fluid Active Promethazine HCl 25 MG Orally every 6 hours 1 tablet 6h 30 Active Tizanidine HCl 4 MG Orally 2 times a day 1 tablet 12h 30 Active Zofran ODT 8 MG DISSOLVE ONE TABLET ON THE TONGUE EVERY 6 HOURS 5 Active Oxycodone-Acetaminophen 10-325 MG Orally 4 times a day 1 tablet as needed 6h 15 Oct, 2017 28 days Active Lantus SoloStar 100 8 units 12h Active Comfort Lancets - as directed 8h 30 Mar, 2016 Active Wellbutrin SR 100 MG Orally Once a day 1 tablet in the morning 24h Oct, 30 day(s) Active Quad Cane - as directed 24h 12 Apr, 2016 Active Ayden Contour Next Test - subcutaneously 3 times a day test blood sugar 8h Active Advair HFA 115-21 MCG/ACT Inhalation Twice a day 2 puffs 12h Nov, Active Multiple Vitamins-Iron - Orally Once a day 1 tablet 24h Active Omeprazole 40 mg 1 CAP(S) ONCE A DAY ORALLY 30 DAYS 30 Active Ondansetron 8 MG DISSOLVE ONE (1) TABLET ON THE TONGUE EVERY SIX (6) HOURS 5 Active PredniSONE 20 mg Orally Once a day 1 tablet 24h Nov, Nov, 05 days Active Lyrica 150 MG Orally Twice a day 1 capsule 12h 30 days Active ProAir HFA 108 INHALE 2 PUFFS BY MOUTH FOUR TIMES DAILY NEEDED 25 Active Microlet Lancets 0 USE DIRECTED THREE TIMES DAILY 30 Active Cyclobenzaprine HCl 10 TAKE 1 TABLET BY MOUTH THREE TIMES DAILY 30 Active Cymbalta 30 MG Orally Once a day (take with 60mg cap) 1 capsule September, 30 days Active Vitamin D-3 1000 UNIT Orally Once a day 2 capsule 24h Active SudoGest 60 mg Orally every 6 hrs 1 tablet as needed 6h September, 07 days Active Calcium 600-200 MG-UNIT Active Atorvastatin Calcium 40 MG TAKE ONE TABLET BY MOUTH ONCE DAILY (LAST REFILL MUST HAVE LABS) 30 Active Neurontin 600 MG Orally Three times a day 1 capsule 8h Active Nicotine 14 MG/24HR Transdermal Once a day for 6 weeks 1 patch to skin Oct, Nov, 42 days Active Marinol 5 mg Orally Twice a day 1 capsule before lunch and supper 12h 28 days Active ProAir HFA cfc free 90 mcg/inh INHALE 2 PUFFS BY MOUTH FOUR TIMES DAILY NEEDED 25 Active Doxepin HCl 10 MG Orally Once a day 1 capsule at bedtime 24h September, 30 days Active Maxalt 5 mg Orally daily as needed Take 1 tablet when headache begins; repeat in 2 hours if not better. Not to take more than 30 mg daily September, 30 days Active Xarelto 20 mg 1 Tablet by Oral route 1 time per day Jul, Active Duloxetine HCl 60 MG Orally Once a day 1 capsule 24h 30 days Active Humalog KwikPen 100 INJECT 5 UNITS SUB-Q THREE TIMES DAILY BOFORE MEALS Active Cyanocobalamin 1000 MCG Orally Once a day 1 tablet 24h Active RESULTS No Results PROCEDURES Procedure Date Ordered Result Body Site [facility] VISIT ESTABLISHED PATIENT November 28, 2017 INSTRUCTIONS MEDICATIONS ADMINISTERED No Known Medications [...] vomitting-[facility] 03/05/17 Hospitalization History hospital stay at [facility] for stomach issues 2016
[2018-05-04] MEDS ORDERED: diphenhydrAMINE 50 MG/ML INJ (BENADRYL) IVP ONE (16:30)
[2018-05-04] MEDS ORDERED: KETOROLAC 30 MG/ML VIAL IVP ONE (16:30)
[2018-05-04] MEDS ORDERED: PROCHLORPERAZINE 10 MG/2ML INJ (COMPAZINE) IV ONE (16:30)
[2018-05-04] MEDS ORDERED: NS IV 500 ML 500 ML IV SCH (16:30)
[2018-05-04] MEDS ORDERED: fentaNYL INJECTION 100 MCG/2 ML AMP IVP ONE (16:45)
--- NOTE | 2018-05-04 16:53 | ED Headache ---
General Chief Complaint: Neurological Problems Stated Complaint: MIGRAINE, VISION PROBLEMS Nursing Triage Note: AMB TO ROOM FROM MRI. WAS HAVING A MRI TOLD MRI TO LEAVE IV IN BECAUSE SHE WAS COMING TO ED TO BE SEEN FOR HEADACHE SHE HAS HAD FOR 2 WEEKS. Nursing Sepsis Screen: No Definite Risk Source: patient Exam Limitations: no limitations History of Present Illness Date Seen by Provider: May 04, 2018 Time Seen by Provider: 16:00 Initial Comments To ER with reports of left-sided headache for 2 weeks associated with photophobia and nausea without vomiting. No fevers or chills. No injury. She has a history of headaches. She was here for an outpatient MRI today and decided that once she finished with that she should come to the emergency room to be checked out for the headache. Severity/Quality: moderate Location: global Prior Headaches/Recent Trauma: occasional headaches Associated Symptoms: nausea/vomiting Allergies and Home Medications Allergies Coded Allergies: aspirin (Verified Allergy, Unknown, 10/25/13) Uncoded Allergies: NSAIDS (Allergy, Unknown, 10/25/13) COUMADIN (Adverse Reaction, Unknown, 10/25/13) VOMITS BLOOD Home Medications Acetaminophen 500 Mg Tablet, 1,000 MG PO Q4H PRN for PAIN-MILD, (Reported) TAKES 2 (500 MG) TABLETS Albuterol Sulfate 1 Puff Puff, 2 PUFF IH QID PRN for SHORTNESS OF BREATH, ( Reported) 1 PUFF = 90 MCG Atorvastatin Calcium 40 Mg Tablet, 40 MG PO HS, (Reported) Cyanocobalamin (Vitamin B-12) 1,000 Mcg Tablet, 1,000 MCG PO DAILY, (Reported) Dronabinol 5 Mg Capsule, 1 CAP PO 1200,1730, (Reported) TAKES BEFORE LUNCH AND SUPPER Escitalopram Oxalate 20 Mg Tablet, 20 MG PO HS, (Reported) Insulin Glargine,Hum.rec.anlog 100 Unit/1 Ml Insuln.pen, 15 UNIT SQ HS Prescribed by: NANNETTE SANDOVAL on 03/07/17 130 Insulin Lispro 100 Unit/1 Ml Insuln.pen, 5 UNIT SQ AC Prescribed by: NANNETTE SANDOVAL on 03/07/17 130 Linaclotide 145 Mcg Capsule, 145 MCG PO DAILY, (Reported) Multivitamins with Iron 1 Each Tablet, 1 TAB PO DAILY, (Reported) Omeprazole 40 Mg Capsule.dr, 40 MG PO DAILY, (Reported) Ondansetron 8 Mg Tab.rapdis, 8 MG SL Q8H PRN for NAUSEA/VOMITING-1ST LINE, ( Reported) Oxycodone HCl/Acetaminophen 1 Each Tablet, 1 TAB PO QID PRN for PAIN-MODERATE, ( Reported) Polyethylene Glycol 3350 255 Gm Powder, 17 GM PO DAILY PRN for CONSTIPATION-2ND LINE, (Reported) Potassium Chloride 20 Meq/15 Ml Liquid, 7.5 ML PO DAILY, (Reported) Pregabalin 150 Mg Capsule, 150 MG PO BID, (Reported) Promethazine HCl 25 Mg Tablet, 25 MG PO Q6H PRN for NAUSEA/VOMITING-2ND LINE, ( Reported) Rivaroxaban 20 Mg Tablet, 20 MG PO HS, (Reported) Tizanidine HCl 4 Mg Tablet, 4 MG PO BID PRN for MUSCLE SPASMS, (Reported) Patient Home Medication List Home Medication List Reviewed: Yes Review of Systems Review of Systems Constitutional: see HPI Eyes: No Symptoms Reported Ears, Nose, Mouth, Throat: no symptoms reported Respiratory: no symptoms reported Cardiovascular: no symptoms reported Genitourinary: no symptoms reported Musculoskeletal: no symptoms reported Skin: no symptoms reported Psychiatric/Neurological: No Symptoms Reported, Headache Past Lnotril-Nbdaet-Ikrvpm Hx Patient Social History Alcohol Use: Denies Use Recreational Drug Use: No Smoking Status: Current Everyday Smoker Type Used: Cigarettes Former Smoker, Quit: Jan 28, 2017 Recent Foreign Travel: No Contact w/Someone Who Travel: No Recent Infectious Disease Expo: No Recent Hopitalizations: No (SEE LIST FOR EXTENSIVE HX) Immunizations Up To Date Tetanus Booster (TDap): Less than 5yrs PED Vaccines UTD: Yes Date of Pneumonia Vaccine: Jul 07, 2014 Date of Influenza Vaccine: Feb 23, 2015 Seasonal Allergies Seasonal Allergies: No Past Medical History Surgeries: Yes (HERNIA, thoracentesis, UPPER/LOWER GI COPE) Abdominal, Appendectomy, Hysterectomy Respiratory: No Asthma, Pulmonary Embolism Currently Using CPAP: No Currently Using BIPAP: No Cardiac: Yes Hypertension Neurological: No Neuropathy 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 Genitourinary: No Gastrointestinal: Yes Gastroesophageal Reflux, Obstructive Bowel, Irritable Bowel Musculoskeletal: Yes Fibromyalgia, Chronic Back Pain Endocrine: Yes Diabetes, Insulin dep HEENT: Yes Hearing Impairment: Bilateral Hearing Aide Cancer: Yes Ovarian Did You Recieve Any Treatments: Yes What Type of Treatment Did You: Surgical Intervention Psychosocial: Yes Anxiety, Depression Integumentary: No Blood Disorders: No Adverse Reaction/Blood Tranf: No Family Medical History Cardiovascular disease 19 MOTHER (CHF) G8 SISTER (CHF) Cataracts 19 MOTHER Diabetes mellitus 19 MOTHER G8 BROTHER G8 BROTHER G8 SISTER Hypertension 19 MOTHER G8 SISTER Heart Disease, Diabetes, Hypertension Physical Exam Vital Signs Vital Signs - First Documented 05/04/18 15:41 Temp 96.6 Pulse 100 Resp 18 B/P (MAP) 107/83 (91) Pulse Ox 98 O2 Delivery Room Air Capillary Refill : Less Than 3 Seconds Height, Weight, BMI Height: 5'2.00" Weight: 108lbs. 1.0oz. 49.299573rs; 14.8 BMI Method:Stated General Appearance: WD/WN, no apparent distress HEENT: PERRL/EOMI, normal ENT inspection, TMs normal Neck: non-tender, full range of motion Respiratory: normal breath sounds, no respiratory distress, no accessory muscle use Extremities: normal range of motion Psychiatric: alert, oriented x 3 Crainal Nerves: normal hearing, normal speech, PERRL Skin: normal color, warm/dry Progress/Results/Core Measures Results/Orders My Orders Orders - REGINA DELONG APRN Iv 500 Ml (Sodium Chloride 0.9%) (05/04/18 16:30) Ketorolac Injection (Toradol Injection) (05/04/18 16:30) Prochlorperazine Injection (Compazine In (05/04/18 16:30) Diphenhydramine Injection (Benadryl Inje (05/04/18 16:30) Fentanyl Injection (Sublimaze Injection (05/04/18 16:45) Medications Given in ED Current Medications Medications Dose Ordered Sig/Jenifer Route Start Time Stop Time Status Last Admin Dose Admin Diphenhydramine HCl 25 mg ONCE ONCE IVP 05/04/18 16:30 1218 16:31 DC 05/04/18 16:56 25 MG Fentanyl Citrate 50 mcg ONCE ONCE IVP 05/04/18 16:45 05/04/18 16:46 DC 05/04/18 16:58 50 MCG Prochlorperazine Edisylate 10 mg ONCE ONCE IV 05/04/18 16:30 05/04/18 16:31 DC 05/04/18 16:56 10 MG Vital Signs/I&O 05/04/18 15:41 Temp 96.6 Pulse 100 Resp 18 B/P (MAP) 107/83 (91) Pulse Ox 98 O2 Delivery Room Air Blood Pressure Mean: 91 Departure Impression Primary Impression: Headache Qualified Codes: R51 - Headache Disposition: 01 HOME, SELF-CARE Condition: Stable Departure-Patient Inst. Decision time for Depature: 17:22 Referrals: HORACE HIGGINS MD (PCP/Family) Primary Care Physician Patient Instructions: Headache, Adult (DC) Add. Discharge Instructions: 1. Return to ER for any concerns 2. Follow-up with your doctor next week All discharge instructions reviewed with patient and/or family. Voiced understanding. REGINA DELONG STORE CUSTODIAN May 04, 2018 16:53
[2018-05-04 17:17] VITALS: BP 112/70
[2018-05-05] MEDS ORDERED: NITR-65 PO (20:02)
== END 2018-05-04 17:17 | disposition home or self-care (01) ==
LOC: EDUNIT# 15:20 → ER 15:22
DX: R51 Headache (principal); J45.909 Unspecified asthma, uncomplicated; I10 Essential (primary) hypertension; K21.9 Gastro-esophageal reflux disease without esophagitis; E11.40 Type 2 diabetes mellitus with diabetic neuropathy, unspecified; F41.9 Anxiety disorder, unspecified; F32.9 Major depressive disorder, single episode, unspecified; Z85.43 Personal history of malignant neoplasm of ovary; Z87.19 Personal history of other diseases of the digestive system; Z88.6 Allergy status to analgesic agent; Z82.49 Family history of ischemic heart disease and other diseases of the circulatory system; Z88.8 Allergy status to other drugs, medicaments and biological substances; Z79.51 Long term (current) use of inhaled steroids; Z79.4 Long term (current) use of insulin; Z79.01 Long term (current) use of anticoagulants; Z87.891 Personal history of nicotine dependence; Z90.710 Acquired absence of both cervix and uterus; Z90.49 Acquired absence of other specified parts of digestive tract; Z98.890 Other specified postprocedural states; Z86.711 Personal history of pulmonary embolism
CPT/HCPCS: 96374; 96375; 99283

== ENCOUNTER → 2018-05-04 | Outpatient (CLI) | payer MEDICARE, MEDICAID ==
[~2018-05-04] MED LIST changes: +IOHEXOL 350 MG/ML 100 ML (OMNIPAQUE 350) VIAL IV ONE; +METR-197 PO; -METR500T21 PO; +NITR-65 PO; +NS 250 ML (IVPB) BAG IV ONE; -POLY255P PO; +POLY255P16 PO; +RECEIVED CONTRAST (Hold Metformin) IV SCH
--- NOTE | 2018-05-04 15:51 | Diagnostic Imaging Report ---
ADDENDUM: UPDATED PROVIDER HORACE VAUGHN JR, MD CLINICAL INDICATION: Patient with epiglottic cyst. EXAM: Axial CT scan of the neck soft tissue performed with 75 cc of Omnipaque 350 IV contrast. Coronal and sagittal reformatted images were created. COMPARISON: None. FINDINGS: There is no evidence of neck soft tissue mass in the region of the epiglottis. The glossoepiglottic and pharyngoepiglottic folds are symmetric and unremarkable. There is no significant abnormalities seen in the region of the vallecula or piriform sinuses. There is a hypertrophic anterior spur at the atlantoodontoid region anteriorly which slightly encroaches upon the right side of the distal nasopharynx, but is patent. Otherwise, the remainder of the nasopharynx, oropharynx, hypopharynx, and laryngeal structures show no significant abnormality. Visualized portions of the tongue, oral cavity, sublingual space, and submandibular regions are unremarkable. The bilateral salivary glands are unremarkable. There is multiple thyroid gland nodules seen with the largest measuring 7 mm on the left. There is no neck lymphadenopathy. There is no neck fluid collection or fat stranding. Visualized upper lung lux are clear. There is mild cervical spine degenerative spurs involving the mid to lower cervical spine. Limited visualization of the intracranial structures are unremarkable. There is a small area of consolidation involving the right ethmoid sinus. Temporal bone structures show no significant abnormality. IMPRESSION: 1: There is no significant abnormality seen involving the epiglottis on this exam. Direct visualization may help better evaluate. 2: There are multiple bilateral thyroid gland nodules. Thyroid ultrasound would better evaluate. 3: Otherwise, the neck soft tissue shows no neck soft tissue mass, lymphadenopathy, fluid collection, or inflammatory process. 4: There is a hypertrophic spur involving the atlantoodontoid region anteriorly which slightly encroaches upon the nasopharynx on the right. Dictated by: Dictated on workstation # [id number]
== END ==
LOC: RAD 14:39
PROVIDERS: ATTEND Otolaryngology
DX: E04.2 Nontoxic multinodular goiter (principal); M53.82 Other specified dorsopathies, cervical region; J38.7 Other diseases of larynx
CPT/HCPCS: 70491

== ENCOUNTER 2018-05-05 18:10 | Emergency (ER) | payer MEDICARE, MEDICAID ==
[~2018-05-05] VITALS: Ht 157.5 cm; Wt 50.1 kg
[2018-05-05] MEDS ORDERED: methylPREDNISolone 125 MG (Solu-MEDROL) VIAL IV STA (18:18)
[2018-05-05] MEDS ORDERED: NS IV 1000 ML 1,000 ML IV ONE (18:37)
--- NOTE | 2018-05-05 18:37 | ED General ---
General Chief Complaint: Allergic Reaction Stated Complaint: ALLERGIC REACTION Nursing Triage Note: PT BROUGHT IN BY EMS WITH COMPLAINT OF ALLERGIC REACTION. PT WAS GIVEN PHENERGAN AND TORADOL AT DR POLK OFFICE. STATES SHE BEGAN TO FEEL ITCHY ALL OVER. STATES SHE TOOK 25MG BENADRYL AT 330PM. PT WAS GIVEN 0.3MG EPI BY EMS. Nursing Sepsis Screen: No Definite Risk Source of Information: Patient, EMS History of Present Illness Date Seen by Provider: May 05, 2018 Time Seen by Provider: 18:10 Initial Comments PT ARRIVES VIA EMS FROM HOME PT HAS HAD A MIGRAINE X 8 DAYS--HAS HISTORY OF FREQUENT HEADACHES AND THIS IS SAME NORMAL HEADACHES STATES SHE HAD MRI OF BRAIN YESTERDAY FOR HEADACHES--ON REVIEW, PT ACTUALLY HAD CT OF HER NECK FOR POSSIBLE EPIGLOTTIC CYST--ESSENTIALLY NORMAL, EXCEPT FOR SMALL THYROID NODULES WAS SEEN IN ER YESTERDAY AND GIVEN BENADRYL, COMPAZINE, FENTANYL--HEADACHE SYMPTOMS RESOLVED PT FOLLOWED UP WITH DR. HIGGINS TODAY FOR HEADACHE AND WAS GIVEN SHOT OF TORADOL AND PHENERGAN, AROUND 1400 STATES SHORTLY AFTER THAT, SHE STARTED ITCHING ALL OVER--NO RASH OR HIVES, FELT LIKE HER THROAT WAS ITCHY AND STARTING TO SWELL, AND HER LIPS AND TONGUE BEGAN TO SWELL. NO DIFFICULTY BREATHING OR WHEEZING, ALTHOUGH PT HAS HISTORY OF ASTHMA NO SWELLING TO HANDS OR FEET. PT TOOK BENADRYL 25 MG AT 1530 CALLED EMS PRIOR TO ARRIVAL FOR CONTINUED SYMPTOMS EMS GAVE EPI 0.3 MG IM WITH RESOLUTION OF SYMPTOMS, EXCEPT SHE STATES HER HEADACHE IS BACK C/O DRY MOUTH PT STATES SHE IS ALLERGIC TO ASPIRIN AND NSAIDS, AND STATES TORADOL USED TO BE ON HER ALLERGY LIST. STATES SHE HAS HAD TORADOL SHOTS ON 2 SEPARATE OCCASIONS AND DID NOT HAVE A REACTION, BUT DID THIS TIME, AND THIS IS THE SAME REACTION SHE HAS HAD IN THE PAST WITH TORADOL AND OTHER NSAIDS. STATES SHE HAS HAD PHENERGAN BEFORE WITHOUT ANY PROBLEMS. PT HAS PERCOCET AT HOME BUT HAS NOT TAKEN ANY FOR HER HEADACHES PT WITH MULTIPLE VISITS--MOST FOR VARIOUS PAIN COMPLAINTS, WITH OTHER VISITS FOR DIABETES-RELATED PROBLEMS. PT STATES HER BLOOD GLUCOSE WAS 104 THIS AM, TOOK HER LANTUS THIS AM, BUT HAS NOT TAKEN ANY HUMALOG TODAY--GIVES NO REASON WHY SHE HAS NOT TAKEN IT. PCP: DR. HIGGINS AT [facility] Allergies and Home Medications Allergies Coded Allergies: aspirin (Verified Allergy, Unknown, 10/25/13) Uncoded Allergies: NSAIDS (Allergy, Unknown, 10/25/13) COUMADIN (Adverse Reaction, Unknown, 10/25/13) VOMITS BLOOD Home Medications Acetaminophen 500 Mg Tablet, 1,000 MG PO Q4H PRN for PAIN-MILD, (Reported) TAKES 2 (500 MG) TABLETS Albuterol Sulfate 1 Puff Puff, 2 PUFF IH QID PRN for SHORTNESS OF BREATH, ( Reported) 1 PUFF = 90 MCG Atorvastatin Calcium 40 Mg Tablet, 40 MG PO HS, (Reported) Cyanocobalamin (Vitamin B-12) 1,000 Mcg Tablet, 1,000 MCG PO DAILY, (Reported) Dronabinol 5 Mg Capsule, 1 CAP PO 1200,1730, (Reported) TAKES BEFORE LUNCH AND SUPPER Escitalopram Oxalate 20 Mg Tablet, 20 MG PO HS, (Reported) Insulin Glargine,Hum.rec.anlog 100 Unit/1 Ml Insuln.pen, 15 UNIT SQ HS Prescribed by: NANNETTE SANDOVAL on 03/07/17 1306 Insulin Lispro 100 Unit/1 Ml Insuln.pen, 5 UNIT SQ AC Prescribed by: NANNETTE SANDOVAL on 03/07/17 1306 Linaclotide 145 Mcg Capsule, 145 MCG PO DAILY, (Reported) Multivitamins with Iron 1 Each Tablet, 1 TAB PO DAILY, (Reported) Nitrofurantoin Monohyd/M-Cryst 100 Mg Capsule, 100 MG PO BID Prescribed by: MARTHA JOHNSON on 05/05/182001 Omeprazole 40 Mg Capsule.dr, 40 MG PO DAILY, (Reported) Ondansetron 8 Mg Tab.rapdis, 8 MG SL Q8H PRN for NAUSEA/VOMITING-1ST LINE, ( Reported) Oxycodone HCl/Acetaminophen 1 Each Tablet, 1 TAB PO QID PRN for PAIN-MODERATE, ( Reported) Polyethylene Glycol 3350 255 Gm Powder, 17 GM PO DAILY PRN for CONSTIPATION-2ND LINE, (Reported) Potassium Chloride 20 Meq/15 Ml Liquid, 7.5 ML PO DAILY, (Reported) Pregabalin 150 Mg Capsule, 150 MG PO BID, (Reported) Promethazine HCl 25 Mg Tablet, 25 MG PO Q6H PRN for NAUSEA/VOMITING-2ND LINE, ( Reported) Rivaroxaban 20 Mg Tablet, 20 MG PO HS, (Reported) Tizanidine HCl 4 Mg Tablet, 4 MG PO BID PRN for MUSCLE SPASMS, (Reported) Patient Home Medication List Home Medication List Reviewed: Yes Review of Systems Review of Systems Constitutional: no symptoms reported, weight gain (WEIGHED 85# IN NOVEMBER, NOW WEIGHS 110.8#) EENTM: see HPI Respiratory: no symptoms reported; No cough, No short of breath, No wheezing Cardiovascular: no symptoms reported Gastrointestinal: no symptoms reported Genitourinary: no symptoms reported Musculoskeletal: no symptoms reported Skin: see HPI, pruritus Psychiatric/Neurological: See HPI, Headache; Denies Numbness, Denies Paresthesia, Denies Seizure, Denies Tingling, Denies Weakness Hematologic/Lymphatic: No Symptoms Reported Immunological/Allergic: see HPI Past Xakdted-Mloxuc-Leervm Hx Patient Social History Alcohol Use: Regular Use (BY HISTORY) Recreational Drug Use: No (UDS + FOR THC--BUT HAS BEEN PRESCRIBED MARINOL) Drug of Choice: TESTED + FOR THC, BUT HAS BEEN PRESCRIBED MARINOL Smoking Status: Current Everyday Smoker (PT TRYING TO QUIT AND IS WEARING A NICOTINE PATCH FOR LAST 2 WEEKS--PER PT ON 05/05/18; SMOKES 1 PPD) Type Used: Cigarettes Recent Foreign Travel: No Contact w/Someone Who Travel: No Recent Infectious Disease Expo: No Recent Hopitalizations: No Immunizations Up To Date Tetanus Booster (TDap): Less than 5yrs PED Vaccines UTD: Yes Date of Pneumonia Vaccine: Jul 07, 2014 Date of Influenza Vaccine: Feb 23, 2015 Seasonal Allergies Seasonal Allergies: No Past Medical History Surgeries: Yes (MULTIPLE UMBILICAL HERNIA REPAIRS;SURGERY FOR BOWEL OBSTRUCTION ; HYST/BSO; THORACENTESIS, UPPER/LOWER GI ENDOSCOPIES; GASTRIC POLYPECTOMIES) Abdominal, Appendectomy, Hysterectomy, Oophorectomy Respiratory: Yes (P.E. X 2--WHILE WHILE IN HOSPITAL FOR SURGERY FOR BOWEL OBSTRUCTION AND LAST ONE 05/2014--UNKNOWN ETIOLOGY. 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 Genitourinary: No Gastrointestinal: Yes (GI BLEED WHILE ON COUMADIN; UMBILICAL HERNIA REPAIRS) Abdominal Hernia (GI BLEED WHILE ON COUMADIN; UMBILICAL HERNIA REPAIRS; MULTIPLE VISITS FOR ABDOMINAL PAIN ), Gastroesophageal Reflux, Gastrointestinal Bleed, Obstructive Bowel, Irritable Bowel Musculoskeletal: Yes (HX OF OPIATE DEPENDENCE AND WITHDRAWL SYMPTOMS) Arthritis, Fibromyalgia, Chronic Back Pain Endocrine: Yes (DKA IN PAST; THYROID NODULES NOTED ON CT NECK 05/04/18) Diabetes, Insulin dep HEENT: Yes Hearing Impairment: Bilateral Hearing Aide 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) Ovarian Did You Recieve Any Treatments: Yes What Type of Treatment Did You: Surgical Intervention Psychosocial: Yes Anxiety, Depression Integumentary: No Blood Disorders: No Adverse Reaction/Blood Tranf: No Family Medical History Cardiovascular disease 19 MOTHER (CHF) G8 SISTER (CHF) Cataracts 19 MOTHER Diabetes mellitus 19 MOTHER G8 BROTHER G8 BROTHER G8 SISTER Hypertension 19 MOTHER G8 SISTER Heart Disease, Diabetes, Hypertension Physical Exam Vital Signs Vital Signs - First Documented 05/05/18 18:11 Temp 97.1 Pulse 97 Resp 20 B/P (MAP) 113/80 (91) Pulse Ox 100 O2 Delivery Room Air Capillary Refill : Less Than 3 Seconds Height, Weight, BMI Height: 5'2.00" Weight: 110lbs. 8.0oz. 50.177328hk; 14.8 BMI Method:Stated General Appearance: No Apparent Distress, WD/WN, Other (CONSTANT LIP LICKING AND TONGUE THRUSTING.) HEENT: PERRL/EOMI, Normal ENT Inspection, Pharynx Normal, Other (NO SWELLING TO LIPS, TONGUE OR UVULA) Neck: Full Range of Motion, Normal Inspection, Supple Respiratory: Normal Breath Sounds, No Accessory Muscle Use, No Respiratory Distress; No Stridor, No Wheezing Cardiovascular: Regular Rate, Rhythm, No Edema, No JVD, No Murmur, Normal Peripheral Pulses Gastrointestinal: Non Tender, Soft Back: No CVA Tenderness Extremity: Normal Capillary Refill, Normal Inspection, Normal Range of Motion, Non Tender, No Calf Tenderness, No Pedal Edema Neurologic/Psychiatric: Alert, Oriented x3, No Motor/Sensory Deficits (GROSSLY INTACT, WITH HISTORY OF PERIPHERAL NEUROPATHY), 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, 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 Skin: Normal Color (PT IS BLACK), Warm/Dry; No Rash Progress/Results/Core Measures Suspected Sepsis Recent Fever Within 48 Hours: No Infection Criteria Present: None New/Unexplained Altered Menta: No Sepsis Screen: No Definite Risk SIRS Temperature:97.1 Pulse: 97 Respiratory Rate: 20 Laboratory Tests 05/05/18 19:05: White Blood Count 9.1 Blood Pressure 113 /80 Mean: 91 Laboratory Tests 05/05/18 19:05: Creatinine 1.23, Platelet Count 310, Total Bilirubin 0.2 Results/Orders Lab Results Laboratory Tests Test 05/05/18 19:05 05/05/18 19:36 Range/Units White Blood Count 9.1 4.3-11.0 10^3/uL Red Blood Count 4.09 L 4.35-5.85 10^6/uL Hemoglobin 11.5 11.5-16.0 G/DL Hematocrit 36 35-52 % Mean Corpuscular Volume 87 80-99 FL Mean Corpuscular Hemoglobin 28 25-34 PG Mean Corpuscular Hemoglobin Concent 32 32-36 G/DL Red Cell Distribution Width 13.9 10.0-14.5 % Platelet Count 310 130-400 10^3/uL Mean Platelet Volume 10.7 H 7.4-10.4 FL Neutrophils (%) (Auto) 46 42-75 % Lymphocytes (%) (Auto) 43 12-44 % Monocytes (%) (Auto) 8 0-12 % Eosinophils (%) (Auto) 2 0-10 % Basophils (%) (Auto) 0 0-10 % Neutrophils # (Auto) 4.2 1.8-7.8 X 10^3 Lymphocytes # (Auto) 4.0 1.0-4.0 X 10^3 Monocytes # (Auto) 0.8 0.0-1.0 X 10^3 Eosinophils # (Auto) 0.2 0.0-0.3 10^3/uL Basophils # (Auto) 0.0 0.0-0.1 10^3/uL Sodium Level 140 135-145 MMOL/L Potassium Level 4.2 3.6-5.0 MMOL/L Chloride Level 112 H 98-107 MMOL/L Carbon Dioxide Level 17 L 21-32 MMOL/L Anion Gap 11 5-14 MMOL/L Blood Urea Nitrogen 17 7-18 MG/DL Creatinine 1.23 0.60-1.30 MG/DL Estimat Glomerular Filtration Rate 57 BUN/Creatinine Ratio 14 Glucose Level 234 H 70-105 MG/DL Calcium Level 8.8 8.5-10.1 MG/DL Corrected Calcium 9.2 8.5-10.1 MG/DL Magnesium Level 1.9 1.8-2.4 MG/DL Total Bilirubin 0.2 0.1-1.0 MG/DL Aspartate Amino Transf (AST/SGOT) 15 5-34 U/L Alanine Aminotransferase (ALT/SGPT) 9 0-55 U/L Alkaline Phosphatase 108 40-136 U/L Total Protein 6.5 6.4-8.2 GM/DL Albumin 3.5 3.2-4.5 GM/DL Serum Alcohol < 10 <10 MG/DL Urine Color YELLOW Urine Clarity CLEAR Urine pH 5 5-9 Urine Specific [place] 1.015 L 1.016-1.022 Urine Protein 3+ H NEGATIVE Urine Glucose (UA) NEGATIVE NEGATIVE Urine Ketones NEGATIVE NEGATIVE Urine Nitrite NEGATIVE NEGATIVE Urine Bilirubin NEGATIVE NEGATIVE Urine Urobilinogen NORMAL NORMAL MG/DL Urine Leukocyte Esterase 3+ H NEGATIVE Urine RBC (Auto) NEGATIVE NEGATIVE Urine RBC NONE /HPF Urine WBC 25-50 H /HPF Urine Squamous Epithelial Cells 2-5 /HPF Urine Renal Epithelial Cells 0-2 /HPF Urine Crystals NONE /LPF Urine Bacteria FEW H /HPF Urine Casts NONE /LPF Urine Mucus NEGATIVE /LPF Urine Culture Indicated YES Urine Opiates Screen NEGATIVE NEGATIVE Urine Oxycodone Screen NEGATIVE NEGATIVE Urine Methadone Screen NEGATIVE NEGATIVE Urine Propoxyphene Screen NEGATIVE NEGATIVE Urine Barbiturates Screen NEGATIVE NEGATIVE Ur Tricyclic Antidepressants Screen POSITIVE H NEGATIVE Urine Phencyclidine Screen NEGATIVE NEGATIVE Urine Amphetamines Screen NEGATIVE NEGATIVE Urine Methamphetamines Screen NEGATIVE NEGATIVE Urine Benzodiazepines Screen NEGATIVE NEGATIVE Urine Cocaine Screen NEGATIVE NEGATIVE Urine Cannabinoids Screen POSITIVE H NEGATIVE My Orders Orders - MARTHA JOHNSON K DO Saline Lock/Iv-Start (05/05/18 18:18) Monitor-Rhythm Ecg Trace Only (05/05/18 18:18) Methylprednisolone Sod Succ (Solu-Medrol (05/05/18 18:18) Cbc With Automated Diff (05/05/18 18:37) Comprehensive Metabolic Panel (05/05/18 18:37) Magnesium (05/05/18 18:37) Ua Culture If Indicated (05/05/18 18:37) Saline Lock/Iv-Start (05/05/18 18:37) Ns Iv 1000 Ml (Sodium Chloride 0.9%) (05/05/18 18:37) Alcohol (05/05/18 19:23) Drug Screen Stat (Urine) (05/05/18 19:23) Urine Culture (05/05/18 19:36) Nitrofurantoin Capsule,Macro (Macrobid C (05/05/18 20:00) Prochlorperazine Injection (Compazine In (05/05/18 20:00) Diphenhydramine Injection (Benadryl Inje (05/05/18 20:00) Prochlorperazine Injection (Compazine In (05/05/18 20:00) Diphenhydramine Injection (Benadryl Inje (05/05/18 20:00) Medications Given in ED Current Medications Medications Dose Ordered Sig/Jenifer Route Start Time Stop Time Status Last Admin Dose Admin Diphenhydramine HCl 25 mg ONCE ONCE IVP 05/05/18 20:00 05/05/18 20:07 DC 05/05/18 20:04 25 MG Nitrofurantoin Macrocrystals 100 mg ONCE ONCE PO 05/05/18 20:00 05/05/18 20:01 DC 05/05/18 20:04 100 MG Prochlorperazine Edisylate 10 mg ONCE ONCE IV 05/05/18 20:00 05/05/18 20:07 DC 05/05/18 20:04 10 MG Vital Signs/I&O 05/05/18 18:11 Temp 97.1 Pulse 97 Resp 20 B/P (MAP) 113/80 (91) Pulse Ox 100 O2 Delivery Room Air Capillary Refill : Less Than 3 Seconds Blood Pressure Mean: 91 Progress Note : Progress Note NO ITCHING OR SWELLING AT ANY TIME. HEADACHE BEGINNING TO EASE Departure Impression Primary Impression: ALLERGIC REACTION--POSSIBLY TO TORADOL Additional Impressions: IDDM (insulin dependent diabetes mellitus) Headache Persistent headaches UTI (urinary tract infection) Disposition: 01 HOME, SELF-CARE Condition: Stable Departure-Patient Inst. Referrals: HORACE HIGGINS MD (PCP/Family) Primary Care Physician Patient Instructions: DIABETES, Drug Allergy, Urinary Tract Infection, Adult ( DC) Add. Discharge Instructions: TAKE ALL YOUR MEDICATIONS PRESCRIBED CHECK YOUR BLOOD SUGAR 4 TIMES A DAY --FASTING AND BEFORE EACH MEAL AND AT BEDTIME FOLLOW UP WITH DR. HIGGINS THIS WEEK FOR FURTHER CARE All discharge instructions reviewed with patient and/or family. Voiced understanding. Scripts Nitrofurantoin Monohyd/M-Cryst (Macrobid 100 mg Capsule) 100 Mg Capsule 100 MG PO BID, #20 CAP Prov: MARTHA JOHNSON DO 05/05/18 MARTHA JOHNSON DO May 05, 2018 18:37
[2018-05-05 19:14] LABS: BASOPHILS % (AUTO) 0 % (0-10); EOSINOPHILS # (AUTO) 0.2 10^3/uL (0.0-0.3); EOSINOPHILS % (AUTO) 2 % (0-10); HEMATOCRIT 36 % (35-52); HEMOGLOBIN 11.5 G/DL (11.5-16.0); LYMPHOCYTES % (AUTO) 43 % (12-44); MEAN CORPUSCULAR HEMOGLOBIN 28 PG (25-34); MEAN CORPUSCULAR HGB CONC 32 G/DL (32-36); MEAN CORPUSCULAR VOLUME 87 FL (80-99); MEAN PLATELET VOLUME 10.7 FL (7.4-10.4); MONOCYTES # (AUTO) 0.8 X 10^3 (0.0-1.0); MONOCYTES % (AUTO) 8 % (0-12); NEUTROPHILS # (AUTO) 4.2 X 10^3 (1.8-7.8); NEUTROPHILS % (AUTO) 46 % (42-75); PLATELET COUNT 310 10^3/uL (130-400); RED BLOOD COUNT 4.09 10^6/uL (4.35-5.85); RED CELL DISTRIBUTION WIDTH 13.9 % (10.0-14.5); WHITE BLOOD COUNT 9.1 10^3/uL (4.3-11.0)
[2018-05-05 19:35] LABS: ALBUMIN 3.5 GM/DL (3.2-4.5); BILIRUBIN,TOTAL 0.2 MG/DL (0.1-1.0); CALCIUM 8.8 MG/DL (8.5-10.1); CREATININE SERUM 1.23 MG/DL (0.60-1.30); MAGNESIUM 1.9 MG/DL (1.8-2.4); POTASSIUM 4.2 MMOL/L (3.6-5.0); TOTAL PROTEIN 6.5 GM/DL (6.4-8.2)
[2018-05-05 19:43] LABS: BILIRUBIN,URINE NEGATIVE (NEGATIVE); CLARITY,URINE CLEAR; COLOR,URINE YELLOW; GLUCOSE, URINE (UA) NEGATIVE (NEGATIVE); KETONES,URINE NEGATIVE (NEGATIVE); LEUKOCYTE ESTERASE ,URINE 3+ (NEGATIVE); NITRITE,URINE NEGATIVE (NEGATIVE); PH,URINE 5 (5-9); PROTEIN,URINE 3+ (NEGATIVE); UROBILINOGEN,URINE NORMAL (NORMAL)
[2018-05-05 19:51] LABS: BACTERIA,URINE FEW /HPF; RENAL EPITHELIAL CELLS,URINE 0-2 /HPF; WBC,URINE 25-50 /HPF
[2018-05-05 19:56] LABS: AMPHETAMINE SCREEN, URINE NEGATIVE (NEGATIVE); BARBITURATE SCREEN URINE NEGATIVE (NEGATIVE); BENZODIAZEPINES SCREEN URINE NEGATIVE (NEGATIVE); CANNABINOID SCREEN, URINE POSITIVE (NEGATIVE); COCAINE SCREEN URINE NEGATIVE (NEGATIVE); METHADONE STAT NEGATIVE (NEGATIVE); METHAMPHETAMINE SCREEN URINE S NEGATIVE (NEGATIVE); OPIATE SCREEN URINE NEGATIVE (NEGATIVE); OXYCODONE STAT NEGATIVE (NEGATIVE); PROPOXYPHENE STAT NEGATIVE (NEGATIVE); TRICYCLIC ANTIDEPRESSANTS SCRE POSITIVE (NEGATIVE)
[2018-05-05] MEDS ORDERED: PROCHLORPERAZINE 10 MG/2ML INJ (COMPAZINE) ONE (20:00)
[2018-05-05] MEDS ORDERED: diphenhydrAMINE 50 MG/ML INJ (BENADRYL) IVP ONE (20:00)
[2018-05-05] MEDS ORDERED: PROCHLORPERAZINE 10 MG/2ML INJ (COMPAZINE) IV ONE (20:00)
[2018-05-05] MEDS ORDERED: diphenhydrAMINE 50 MG/ML INJ (BENADRYL) ONE (20:00)
[2018-05-05] MEDS ORDERED: NITROFURANTOIN 100 MG (MACROBID) CAPSULE PO ONE (20:00)
[2018-05-05] MEDS ORDERED: NITR-65 PO (20:02)
[2018-05-05 20:18] VITALS: BP 118/81
== END 2018-05-05 20:17 | disposition home or self-care (01) ==
LOC: EDUNIT# 18:10 → ER 18:12
DX: R51 Headache (principal); T50.905A Adverse effect of unspecified drugs, medicaments and biological substances, initial encounter; N39.0 Urinary tract infection, site not specified; E11.9 Type 2 diabetes mellitus without complications; J45.909 Unspecified asthma, uncomplicated; I10 Essential (primary) hypertension; G43.909 Migraine, unspecified, not intractable, without status migrainosus; E11.40 Type 2 diabetes mellitus with diabetic neuropathy, unspecified; F41.9 Anxiety disorder, unspecified; F32.9 Major depressive disorder, single episode, unspecified; K21.9 Gastro-esophageal reflux disease without esophagitis; F17.210 Nicotine dependence, cigarettes, uncomplicated; Z88.6 Allergy status to analgesic agent; Z87.19 Personal history of other diseases of the digestive system; Z92.21 Personal history of antineoplastic chemotherapy; Z85.43 Personal history of malignant neoplasm of ovary; Z82.49 Family history of ischemic heart disease and other diseases of the circulatory system; Z90.49 Acquired absence of other specified parts of digestive tract; Z86.010 Personal history of colon polyps; Z86.718 Personal history of other venous thrombosis and embolism; Z98.890 Other specified postprocedural states; Z90.710 Acquired absence of both cervix and uterus; Z88.8 Allergy status to other drugs, medicaments and biological substances; Z79.51 Long term (current) use of inhaled steroids; Z79.4 Long term (current) use of insulin; Z79.01 Long term (current) use of anticoagulants
CPT/HCPCS: 36415; 80053; 80306; 80320; 81000; 83735; 85025; 87077; 87088; 93041; 96374; 96375

== ENCOUNTER 2018-05-20 11:05 | Outpatient (RCR) | payer MEDICARE, MEDICAID ==
[~2018-05-20 11:05] MED LIST changes: -GABA600T2 PO; +GBPN600T PO; +METR-145 PO; -METR-197 PO; +NITR-65 PO
[2018-05-20 11:28] LABS: BASOPHILS % (AUTO) 0 % (0-10); EOSINOPHILS # (AUTO) 0.3 10^3/uL (0.0-0.3); EOSINOPHILS % (AUTO) 3 % (0-10); HEMATOCRIT 36 % (35-52); HEMOGLOBIN 11.3 G/DL (11.5-16.0); LYMPHOCYTES # (AUTO) 2.7 X 10^3 (1.0-4.0); LYMPHOCYTES % (AUTO) 26 % (12-44); MEAN CORPUSCULAR HGB CONC 32 G/DL (32-36); MEAN CORPUSCULAR VOLUME 86 FL (80-99); MEAN PLATELET VOLUME 10.5 FL (7.4-10.4); MONOCYTES # (AUTO) 0.6 X 10^3 (0.0-1.0); MONOCYTES % (AUTO) 6 % (0-12); NEUTROPHILS # (AUTO) 6.7 X 10^3 (1.8-7.8); NEUTROPHILS % (AUTO) 65 % (42-75); PLATELET COUNT 313 10^3/uL (130-400); RED CELL DISTRIBUTION WIDTH 14.2 % (10.0-14.5); WHITE BLOOD COUNT 10.3 10^3/uL (4.3-11.0)
[2018-05-20 11:31] LABS: MEAN CORPUSCULAR HEMOGLOBIN 27 PG (25-34)
[2018-05-20 12:03] LABS: ALANINE AMINOTRANSFERASE 14 U/L (0-55); ALBUMIN 3.4 GM/DL (3.2-4.5); ALKALINE PHOSPHATASE 132 U/L (40-136); BILIRUBIN,TOTAL 0.1 MG/DL (0.1-1.0); BUN/CREATININE RATIO 21; CALCIUM 8.9 MG/DL (8.5-10.1); CARBON DIOXIDE 20 MMOL/L (21-32); CHLORIDE 113 MMOL/L (98-107); CREATININE SERUM 0.92 MG/DL (0.60-1.30); GFR ESTIMATED > 60; GLUCOSE 249 MG/DL (70-105); POTASSIUM 4.6 MMOL/L (3.6-5.0); SODIUM 143 MMOL/L (135-145); TOTAL PROTEIN 6.5 GM/DL (6.4-8.2)
[2018-06-02] MEDS ORDERED: ZOLP10TA5 PO (11:13)
[2018-06-02] MEDS ORDERED: MONT10TA24 PO (11:13)
[2018-06-02] MEDS ORDERED: INSU100I10 SQ (11:13)
[2018-06-02] MEDS ORDERED: DULO60CA58 PO (11:13)
[2018-06-02] MEDS ORDERED: INSU100I23 SQ (11:13)
[2018-06-02] MEDS ORDERED: BUPR100T8 PO (11:13)
[2018-06-02] MEDS ORDERED: DRON5CAP14 PO (11:13)
[2018-06-02] MEDS ORDERED: DULO30CA48 PO (11:13)
[2018-06-02] MEDS ORDERED: GBPN600T PO (11:13)
[2018-06-02] MEDS ORDERED: FLUT12AE4 INH (11:24)
[2018-06-02] MEDS ORDERED: DICY20TA10 PO (11:24)
[2018-06-02] MEDS ORDERED: RIZA5TAB28 PO (11:24)
[2018-06-02] MEDS ORDERED: BTR10SP2 NS (11:28)
[2018-06-03] MEDS ORDERED: POLY255P16 PO (10:08)
[2018-06-10] MEDS ORDERED: CEPH-507 PO (19:12)
[2018-06-10] MEDS ORDERED: POLY119P5 PO (19:12)
[2018-07-14] MEDS ORDERED: CEPH-507 PO (02:32)
== END 2018-08-18 | disposition home or self-care (01) ==
LOC: ONC 11:05
PROVIDERS: ATTEND Internal Medicine Hematology & Oncology
DX: I27.82 Chronic pulmonary embolism (principal); D64.9 Anemia, unspecified; E11.43 Type 2 diabetes mellitus with diabetic autonomic (poly)neuropathy; F32.9 Major depressive disorder, single episode, unspecified; F17.210 Nicotine dependence, cigarettes, uncomplicated; Z79.01 Long term (current) use of anticoagulants; Z79.899 Other long term (current) drug therapy
CPT/HCPCS: 36415; 80053; 85025; 99213

== ENCOUNTER 2018-06-01 16:50 | Observation (INO) | payer MEDICARE, MEDICAID ==
[~2018-06-01] VITALS: Ht 157.5 cm; Wt 50.1 kg
[~2018-06-01 16:50] MED LIST changes: -BTR10SP2 NS; -BUPR100T8 PO; -DICY20TA10 PO; -DRON5CAP14 PO; -DULO60CA58 PO; -FLUT12AE4 INH; -MONT10TA24 PO; -RIZA5TAB28 PO
[2018-06-01] MEDS ORDERED: NS IV 1000 ML 1,000 ML IV SCH (16:59)
--- NOTE | 2018-06-01 17:01 | ED Neurological Problem ---
General Stated Complaint: DIABETIC,CONFUSED Source: patient Exam Limitations: clinical condition History of Present Illness Date Seen by Provider: Jun 01, 2018 Time Seen by Provider: 16:57 Initial Comments Patient presents to ER by private conveyance with some significant others who states the patient started going unresponsive just prior to arrival. Patient is a known diabetic. She does not give any history or answer any questions. Spoke with the sister and brother. The sister states that they were out today after she got her mammogram which was a routine follow-up for a abnormal finding from about a year ago. They're at the grocery store checking out and she says the patient was not looking well was sweaty and acting dazed so she asked her if her blood sugar was okay but she didn't answer. She gave her some candy to eat but her sister didn't really seem to understand so she loaded her up in the car and drove her down to the ER. While she was driving down here she was having some jerking movements and she thought she might be having a seizure. The sister states the patient usually takes her blood sugar 3 times a day but because they were out about she did not take it this afternoon. She's not sure what was this morning. Allergies and Home Medications Allergies Coded Allergies: aspirin (Verified Allergy, Unknown, 10/25/13) Uncoded Allergies: NSAIDS (Allergy, Unknown, 10/25/13) COUMADIN (Adverse Reaction, Unknown, 10/25/13) VOMITS BLOOD Home Medications Acetaminophen 500 Mg Tablet, 1,000 MG PO Q4H PRN for PAIN-MILD, (Reported) TAKES 2 (500 MG) TABLETS Albuterol Sulfate 1 Puff Puff, 2 PUFF IH QID PRN for SHORTNESS OF BREATH, ( Reported) 1 PUFF = 90 MCG Atorvastatin Calcium 40 Mg Tablet, 40 MG PO HS, (Reported) Cyanocobalamin (Vitamin B-12) 1,000 Mcg Tablet, 1,000 MCG PO DAILY, (Reported) Dronabinol 5 Mg Capsule, 1 CAP PO 1200,1730, (Reported) TAKES BEFORE LUNCH AND SUPPER Escitalopram Oxalate 20 Mg Tablet, 20 MG PO HS, (Reported) Insulin Glargine,Hum.rec.anlog 100 Unit/1 Ml Insuln.pen, 15 UNIT SQ HS Prescribed by: NANNETTE SANDOVAL on 03/07/17 1306 Insulin Lispro 100 Unit/1 Ml Insuln.pen, 5 UNIT SQ AC Prescribed by: NANNETTE SANDOVAL on 03/07/17 1306 Linaclotide 145 Mcg Capsule, 145 MCG PO DAILY, (Reported) Multivitamins with Iron 1 Each Tablet, 1 TAB PO DAILY, (Reported) Nitrofurantoin Monohyd/M-Cryst 100 Mg Capsule, 100 MG PO BID Prescribed by: MARTHA JOHNSON on 05/05/182001 Omeprazole 40 Mg Capsule.dr, 40 MG PO DAILY, (Reported) Ondansetron 8 Mg Tab.rapdis, 8 MG SL Q8H PRN for NAUSEA/VOMITING-1ST LINE, ( Reported) Oxycodone HCl/Acetaminophen 1 Each Tablet, 1 TAB PO QID PRN for PAIN-MODERATE, ( Reported) Polyethylene Glycol 3350 255 Gm Powder, 17 GM PO DAILY PRN for CONSTIPATION-2ND LINE, (Reported) Potassium Chloride 20 Meq/15 Ml Liquid, 7.5 ML PO DAILY, (Reported) Pregabalin 150 Mg Capsule, 150 MG PO BID, (Reported) Promethazine HCl 25 Mg Tablet, 25 MG PO Q6H PRN for NAUSEA/VOMITING-2ND LINE, ( Reported) Rivaroxaban 20 Mg Tablet, 20 MG PO HS, (Reported) Tizanidine HCl 4 Mg Tablet, 4 MG PO BID PRN for MUSCLE SPASMS, (Reported) Patient Home Medication List Home Medication List Reviewed: Yes Review of Systems Review of Systems Constitutional: see HPI (patient unable to give a meaningful review of systems. ) Past Iwnugzq-Kksnkd-Rjawtp Hx Patient Social History Recreational Drug Use: No Drug of Choice: TESTED + FOR THC, BUT HAS BEEN PRESCRIBED MARINOL Smoking Status: Current Everyday Smoker Type Used: Cigarettes Recent Foreign Travel: No Contact w/Someone Who Travel: No Recent Hopitalizations: No Immunizations Up To Date Tetanus Booster (TDap): Less than 5yrs PED Vaccines UTD: Yes Date of Pneumonia Vaccine: Jul 07, 2014 Date of Influenza Vaccine: Feb 23, 2015 Seasonal Allergies Seasonal Allergies: No Past Medical History Surgeries: Yes Abdominal, Appendectomy, Hysterectomy, Oophorectomy Respiratory: Yes Asthma, Pulmonary Embolism Currently Using CPAP: No Currently Using BIPAP: No Cardiac: Yes Hypertension Neurological: Yes Headaches /Migraines, Neuropathy 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 Disorders: Yes (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) 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, Menopausal Genitourinary: No Gastrointestinal: Yes (GI BLEED WHILE ON COUMADIN; UMBILICAL HERNIA REPAIRS) Abdominal Hernia, Gastroesophageal Reflux, Gastrointestinal Bleed, Obstructive Bowel, Irritable Bowel Musculoskeletal: Yes (HX OF OPIATE DEPENDENCE AND WITHDRAWL SYMPTOMS) Arthritis, Fibromyalgia, Chronic Back Pain Endocrine: Yes (DKA IN PAST; THYROID NODULES NOTED ON CT NECK 05/04/18) Diabetes, Insulin dep HEENT: Yes Hearing Impairment: Bilateral Hearing Aide 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) Ovarian Did You Recieve Any Treatments: Yes What Type of Treatment Did You: Surgical Intervention Psychosocial: Yes Anxiety, Depression Integumentary: No Blood Disorders: No Adverse Reaction/Blood Tranf: No Family Medical History Cardiovascular disease 19 MOTHER (CHF) G8 SISTER (CHF) Cataracts 19 MOTHER Diabetes mellitus 19 MOTHER G8 BROTHER G8 BROTHER G8 SISTER Hypertension 19 MOTHER G8 SISTER Heart Disease, Diabetes, Hypertension Physical Exam Vital Signs Vital Signs - First Documented 06/01/18 16:50 Temp 93.3 Pulse 88 Resp 20 B/P (MAP) 151/88 (109) Pulse Ox 100 O2 Delivery Room Air Capillary Refill : Height, Weight, BMI Height: 5'2.00" Weight: 110lbs. 8.0oz. 50.566984xw; 14.8 BMI Method:Stated General Appearance: WD/WN, moderate distress HEENT: PERRL/EOMI, normal ENT inspection, TMs normal, pharynx normal Neck: non-tender, full range of motion, supple, normal inspection Respiratory: chest non-tender, lungs clear, normal breath sounds, no respiratory distress, no accessory muscle use Cardiovascular: normal peripheral pulses, regular rate, rhythm, no edema Peripheral Pulses: 2+ Radial Pulses (R), 2+ Radial Pulses (L) Gastrointestinal: normal bowel sounds, non tender, soft Extremities: normal range of motion, non-tender, normal inspection, no pedal edema, no calf tenderness, normal capillary refill Neurologic/Psychiatric: other (staring into space and not answering questions. GCS 11pts) Skin: normal color, warm/dry Progress/Results/Core Measures Results/Orders Lab Results Laboratory Tests Test 06/01/18 17:15 06/01/18 17:25 06/01/18 17:42 06/01/18 18:36 Range/Units White Blood Count 12.1 H 4.3-11.0 10^3/uL Red Blood Count 4.51 4.35-5.85 10^6/uL Hemoglobin 12.4 11.5-16.0 G/DL Hematocrit 39 35-52 % Mean Corpuscular Volume 86 80-99 FL Mean Corpuscular Hemoglobin 28 25-34 PG Mean Corpuscular Hemoglobin Concent 32 32-36 G/DL Red Cell Distribution Width 14.2 10.0-14.5 % Platelet Count 356 130-400 10^3/uL Mean Platelet Volume 10.9 H 7.4-10.4 FL Neutrophils (%) (Auto) 53 42-75 % Lymphocytes (%) (Auto) 36 12-44 % Monocytes (%) (Auto) 8 0-12 % Eosinophils (%) (Auto) 3 0-10 % Basophils (%) (Auto) 0 0-10 % Neutrophils # (Auto) 6.4 1.8-7.8 X 10^3 Lymphocytes # (Auto) 4.3 H 1.0-4.0 X 10^3 Monocytes # (Auto) 1.0 0.0-1.0 X 10^3 Eosinophils # (Auto) 0.4 H 0.0-0.3 10^3/uL Basophils # (Auto) 0.0 0.0-0.1 10^3/uL Sodium Level 144 135-145 MMOL/L Potassium Level 2.9 L 3.6-5.0 MMOL/L Chloride Level 111 H 98-107 MMOL/L Carbon Dioxide Level 21 21-32 MMOL/L Anion Gap 12 5-14 MMOL/L Blood Urea Nitrogen 10 7-18 MG/DL Creatinine 0.86 0.60-1.30 MG/DL Estimat Glomerular Filtration Rate > 60 BUN/Creatinine Ratio 12 Glucose Level 44 *L 70-105 MG/DL Calcium Level 9.6 8.5-10.1 MG/DL Corrected Calcium 9.7 8.5-10.1 MG/DL Total Bilirubin 0.2 0.1-1.0 MG/DL Aspartate Amino Transf (AST/SGOT) 18 5-34 U/L Alanine Aminotransferase (ALT/SGPT) 11 0-55 U/L Alkaline Phosphatase 122 40-136 U/L Total Protein 7.7 6.4-8.2 GM/DL Albumin 3.9 3.2-4.5 GM/DL Thyroid Stimulating Hormone (TSH) 0.19 L 0.35-4.94 UIU/ML Salicylates Level < 5.0 L 5.0-20.0 MG/DL Acetaminophen Level < 10 L 10-30 UG/ML Serum Alcohol < 10 <10 MG/DL Urine Color YELLOW Urine Clarity CLEAR Urine pH 6 5-9 Urine Specific [place] 1.015 L 1.016-1.022 Urine Protein 3+ H NEGATIVE Urine Glucose (UA) NEGATIVE NEGATIVE Urine Ketones NEGATIVE NEGATIVE Urine Nitrite NEGATIVE NEGATIVE Urine Bilirubin NEGATIVE NEGATIVE Urine Urobilinogen NORMAL NORMAL MG/DL Urine Leukocyte Esterase NEGATIVE NEGATIVE Urine RBC (Auto) 1+ H NEGATIVE Urine RBC 0-2 /HPF Urine WBC RARE /HPF Urine Crystals PRESENT H /LPF Urine Amorphous Sediment MOD JOVI URATES H /LPF Urine Bacteria TRACE /HPF Urine Casts NONE /LPF Urine Mucus NEGATIVE /LPF Urine Culture Indicated NO Urine Test NEGATIVE NEGATIVE Urine Opiates Screen NEGATIVE NEGATIVE Urine Oxycodone Screen NEGATIVE NEGATIVE Urine Methadone Screen NEGATIVE NEGATIVE Urine Propoxyphene Screen NEGATIVE NEGATIVE Urine Barbiturates Screen NEGATIVE NEGATIVE Ur Tricyclic Antidepressants Screen NEGATIVE NEGATIVE Urine Phencyclidine Screen NEGATIVE NEGATIVE Urine Amphetamines Screen NEGATIVE NEGATIVE Urine Methamphetamines Screen NEGATIVE NEGATIVE Urine Benzodiazepines Screen NEGATIVE NEGATIVE Urine Cocaine Screen NEGATIVE NEGATIVE Urine Cannabinoids Screen POSITIVE H NEGATIVE Glucometer 80 187 H 70-110 MG/DL My Orders Orders - ALESSIA MARLEY Ua Culture If Indicated (06/01/18 16:59) Cbc With Automated Diff (06/01/18 16:59) Comprehensive Metabolic Panel (06/01/18 16:59) Alcohol (06/01/18 16:59) Drug Screen Stat (Urine) (06/01/18 16:59) Acetaminophen (06/01/18 16:59) Salicylate (06/01/18 16:59) Ekg Tracing (06/01/18 16:59) Hcg,Qualitative Urine (06/01/18 16:59) Saline Lock/Iv-Start (06/01/18 16:59) Monitor-Rhythm Ecg Trace Only (06/01/18 16:59) Saline Lock/Iv-Start (06/01/18 16:59) Ns Iv 1000 Ml (Sodium Chloride 0.9%) (06/01/18 16:59) Chest 1 View, Ap/Pa Only (06/01/18 16:59) Ct Head Wo (06/01/18 16:59) Accucheck Stat ONCE (06/01/18 16:59) Thyroid Stimulating Hormone (06/01/18 17:05) Accucheck Stat ONCE (06/01/18 17:05) D50w (Emergency) Syringe (Dextrose 50% 5 (06/01/18 18:00) D50w (Emergency) Syringe (Dextrose 50% 5 (06/01/18 17:47) Potassium Cl 10meq/50ml Ivpb (Kcl 10 Meq (06/01/18 18:45) Catheter(Urinary) Insert & Ass 03,15 (06/01/18 18:59) Medications Given in ED Current Medications Medications Dose Ordered Sig/Jenifer Route Start Time Stop Time Status Last Admin Dose Admin Dextrose 50 ml ONCE ONCE IV 06/01/18 18:00 06/01/18 18:01 DC 06/01/18 17:50 50 ML Vital Signs/I&O 06/01/18 16:50 Temp 93.3 Pulse 88 Resp 20 B/P (MAP) 151/88 (109) Pulse Ox 100 O2 Delivery Room Air Progress Progress Note : Time: 18:58 Progress Note Initial blood sugar was 90 so we rechecked shortly thereafter it was 80. The glucose came back 44 on the CMP. We decided to give an amp of D50 which improved her symptoms significantly. She was able to sit up talk to us and oriented 3 at this point. She still quite somnolent so we've offered an observation stay for hypoglycemia. Don't find any evidence of infection or reason why her blood sugars so low. Urinary catheter was started. Her potassium is low so we'll replace that using IV fluids overnight. Initial ECG Impression Date: Jun 01, 2018 Initial ECG Impression Time: 16:59 Initial ECG Rate: 86 Initial ECG Rhythm: Normal Sinus Initial ECG Intervals: Normal Initial ECG Impression: Normal Comment No ST-T segment elevation or depression. Diagnostic Imaging Diagonstic Imaging: Xray Plain Films/CT/US/NM/MRI: chest (1v) Comments [facility] [place], [place] NAME: JAZMIN YOU [facility] REC#: [id number] PT STATUS: REG ER : 1970 PHYSICIAN: ALESSIA MARLEY MD ADMIT DATE: 06/01/18/ER Draft Date of Exam:06/01/18 CHEST 1 VIEW, AP/PA ONLY PATIENT HISTORY: Confusion, altered mental status. TECHNIQUE: Single frontal view of the chest. COMPARISON: 08/11/2017. FINDINGS: There are mildly prominent interstitial markings which are chronic and stable since the prior study, notable at the right lung base. No new consolidation is seen. There is no pleural effusion or pneumothorax. The cardiac silhouette appears mildly more prominent, likely due to AP technique versus the prior exam. No acute osseous abnormality is seen. IMPRESSION: Stable chronic findings in the lungs with no focal consolidation seen. Dictated on workstation # [id number] Dict: 06/01/181821 Trans: 06/01/181825 [id number] Interpreted by: LILIAN DUGAN MD Electronically signed by: Reviewed: Reviewed by Pa Diagonstic Imaging: CT Plain Films/CT/US/NM/MRI: head (noncontrast) Comments [facility] [place] [place] [facility] [id number] PT STATUS: REG ER : 1970 PHYSICIAN: ALESSIA MARLEY MD ADMIT DATE: 06/01/18/ER Draft Date of Exam:06/01/18 CT HEAD WO PROCEDURE: CT head without contrast. TECHNIQUE: Multiple contiguous axial images were obtained through the brain without the use of intravenous contrast. INDICATION: Altered mental status, confusion. COMPARISON: None. FINDINGS: The ventricles and cortical sulci appear age appropriate. There is an area of hypoattenuation in the left periventricular white matter. There is a punctate focus which is hyperdense in the right basal ganglia, likely senescent calcification. No acute intracranial hemorrhage is seen. There is no CT evidence of acute territorial ischemia. There is no midline shift or mass effect. The calvarium is intact. The visible paranasal sinuses are clear. IMPRESSION: 1. No acute intracranial hemorrhage or CT evidence of acute territorial ischemia. 2. Focal area of hypoattenuation in the left periventricular white matter, may represent chronic microvascular disease or possibly prominent perivascular space. Dictated on workstation # [id number] Dict: 06/01/18 1819 Trans: 06/01/18 1825 [id number] Interpreted by: LILIAN DUGAN MD Electronically signed by: Reviewed: Reviewed by Me Departure Communication (Admissions) Time/Spoke to Admitting Phy: 19:00 Discussed the case with Dr. Sandoval she agrees to accept the patient or observation overnight. Accu-Cheks every 2 hours. Labs in the morning. Impression Primary Impression: Hypoglycemia associated with type 2 diabetes mellitus Additional Impression: Hypokalemia Disposition: ADMITTED INPATIENT Condition: Improved Admissions Decision to Admit Reason: Admit from ER (General) Decision to Admit/Date: Jun 01, 2018 Time/Decision to Admit Time: 19:19 Departure-Patient Inst. Referrals: HORACE HIGGINS MD (PCP/Family) Primary Care Physician ALESSIA MARLEY Jun 01, 2018 17:01
--- OUTSIDE RECORDS SUMMARY | 2018-06-01 17:01 | XMS REPORT | Clinical Summary ---
Author Author [facility] Organization [facility] Address Unknown Phone Unavailable Care Team Providers Care Teradata Architect Name Role Phone Aamir Magdaleno MD Unavailable Greyson Powell RN Unavailable Unavailable Ella Carrion RN Unavailable Unavailable Misa Alvarez MD Unavailable Smitha Milian RN Unavailable Unavailable Tito Limon MD Unavailable John Raymond MD Unavailable Chioma Jacques RN Unavailable Unavailable Megan Bryan RN Unavailable Unavailable Myesha Orona KENNEL HAND Unavailable Arvin Aguilar RN Unavailable Unavailable Manasa Savage RN Unavailable Unavailable Andrea Durant KENNEL HAND Unavailable Jack Davila RN Unavailable Unavailable Vanessa Perez MD Unavailable Radha Malin MD Unavailable Chuck Frias MD PCP Source Comments Some departments are not documenting in the electronic medical record. If you do not see the information that you expected, contact Release of Information in the Health Information Management department at [phone] for further assistance in locating additional records.[facility] Allergies Comments Active Allergy Reactions Severity [...] Overview: Added automatically from request for surgery [id number] Superior mesenteric artery syndrome 03/17/2009 Anemia 03/17/2009 Vitamin D deficiency 03/17/2009 Malnutrition 03/17/2009 Weight loss, unintentional 03/06/2009 Migraine 09/17/2008 Depression 09/17/2008 Anxiety 09/17/2008 Suicide attempt 09/17/2008 Asthma 09/17/2008 Chronic pain 09/17/2008 Resolved Problems Problem Noted Date Resolved Date Abdominal pain 09/17/2008 07/29/2017 Encounters Care Team Description Date Type Specialty Cheri Biswas LPN 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 Orders Only Otolaryngology 05/04/2018 Hospital Radiology Encounter Chuck Montague Jr., MD Epiglottic cyst; Neck [...] Taken Vital Sign Reading 04/15/2018 9:09 AM TITLE SUPERVISOR Blood Pressure 104/59 04/15/2018 9:09 AM TITLE SUPERVISOR Pulse 95 12/10/2017 3:27 PM CDT Temperature 36.9 C (98.4 F) 07/29/2017 11:22 AM TITLE SUPERVISOR Respiratory Rate 18 12/10/2017 3:27 PM CDT Oxygen Saturation 100% - Inhaled Oxygen - Concentration 04/15/2018 9:09 AM TITLE SUPERVISOR Weight 50.3 kg (111 lb) 04/15/2018 9:09 AM TITLE SUPERVISOR Height 157.5 cm (5' 2") 04/15/2018 9:09 AM TITLE SUPERVISOR Body Mass Index 20.3 Plan of Treatment Health Maintenance Due Date Last Done Comments PHYSICAL (COMPREHENSIVE) 1978 EXAM DTAP/TDAP VACCINES (1 - 1989 Tdap) CERVICAL CANCER SCREENING 2001 BREAST CANCER SCREENING 2011 INFLUENZA VACCINE 12/24/2017 03/04/2009, 04/20/2008 HIV SCREENING Completed 03/03/2009 Procedures Comments Procedure Name Priority Date/Time Associated Diagnosis CT NECK EXTERNAL IMAGING Routine 05/04/2018 Diagnosis unknown 3:[address] NECK W/CONTRAST Routine 05/04/2018 Epiglottic cyst from Last 3 Months Results * CT NECK EXTERNAL IMAGING (05/04/2018 3:05 PM TITLE SUPERVISOR) Narrative Performed At This order has been auto finalized and does not contain a result. * CT NECK W/CONTRAST (05/04/2018) Narrative Performed At Performing Organization Address City/State/Zipconc Phone Number [facility] from Last 3 Months Insurance Payer Benefit Subscriber ID Type Phone Address Plan / Group MEDICARE MEDICARE xxxxxxxxxx Medicare PART A AND B [facility] MEDICAID [facility] xxxxxxxxxxx Medicaid [place] Advance Directives Patient has advance care planning documents, and code status on file. For more information, please contact: [facility] [address] [place] [address] Date Inactivated Comments Code Status Date Activated 03/17/2009 8:26 PM Full Code 03/02/2009 5:47 PM 09/17/2008 7:51 PM Full Code 09/15/2008 11:04 PM
--- OUTSIDE RECORDS SUMMARY | 2018-06-01 17:01 | XMS REPORT | Encounter Summary ---
Author Author [facility] Organization [facility] Address Unknown Phone Unavailable Care Team Providers Care Architectural Manager Name Role Phone Aamir Magdaleno MD Unavailable Greyson Powell RN Unavailable Unavailable Ella Carrion RN Unavailable Unavailable Misa Alvarez MD Unavailable Smitha Milian RN Unavailable Unavailable Tito Limon MD Unavailable John Raymond MD Unavailable Chioma Jacques RN Unavailable Unavailable Megan Bryan RN Unavailable Unavailable Myesha Orona PEOPLESOFT TALEO MANAGER Unavailable Arvin Aguilar RN Unavailable Unavailable Manasa Savage RN Unavailable Unavailable Andrea Durant PEOPLESOFT TALEO MANAGER Unavailable Jack Davila RN Unavailable Unavailable Vanessa Perez MD Unavailable Radha Malin MD Unavailable Chuck Frias MD PCP Reason for Referral * Radiology Services (Routine) Referred By Contact Referred To Contact Status Reason Specialty Diagnoses / Procedures Chuck Montague Jr., MD [address] [facility] [address] [place] [address] New Request Radiology Diagnoses Epiglottic cyst P rocedures CT NECK W/CONTRAST Encounter Details Care Team Description Date Type Department Cheri Biswas LPN 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 as of this encounter Plan of Treatment Not on fileas of this encounter Procedures Comments Procedure Name Priority Date/Time Associated Diagnosis CT NECK W/CONTRAST Routine 05/04/2018 Epiglottic cyst in this encounter Results * CT NECK W/CONTRAST (05/04/2018) Narrative Performed At Performing Organization Address City/State/Zipcode Phone Number [facility] in this encounter Visit Diagnoses Diagnosis Epiglottic cyst Other diseases of larynx in this encounter
--- OUTSIDE RECORDS SUMMARY | 2018-06-01 17:01 | XMS REPORT | Encounter Summary ---
Author Author [facility] Organization [facility] Address Unknown Phone Unavailable Care Team Providers Care Coding Validator Name Role Phone Aamir Magdaleno MD Unavailable Greyson Powell RN Unavailable Unavailable Ella Carrion RN Unavailable Unavailable Misa Alvarez MD Unavailable mSitha Milian RN Unavailable Unavailable Tito Limon MD Unavailable John Raymond MD Unavailable Chioma Jacques RN Unavailable Unavailable Megan Bryan RN Unavailable Unavailable Myesha Orona STEEPING PRESS OPERATOR Unavailable Arvin Aguilar RN Unavailable Unavailable Manasa Savage RN Unavailable Unavailable Andrea Durant STEEPING PRESS OPERATOR Unavailable Jack Davila RN Unavailable Unavailable Vanessa Perez MD Unavailable Radha Malin MD Unavailable Chuck Frias MD PCP Reason for Referral * Radiology Services (Routine) Referred By Contact Referred To Contact Status Reason Specialty Diagnoses / Procedures Chuck Montague Jr., MD [address] [place] [address] New Request Radiology Diagnoses Epiglottic cyst P rocedures CT NECK W/CONTRAST Reason for Visit * Reason Comments Throat Problem Encounter Details Care Team Description Date Type Department Chuck Montague Jr., MD [address] [place] [address] Epiglottic cyst; Neck pain; Calcification of cartilage 04/15/2018 Office Visit [facility] [place], [address], [address] [place] [address] Social History Date Tobacco Use Types Packs/Day [...] Taken Vital Sign Reading 04/15/2018 9:09 AM SHRIMP TRAWLER Blood Pressure 104/59 04/15/2018 9:09 AM SHRIMP TRAWLER Pulse 95 - Temperature - - Respiratory Rate - - Oxygen Saturation - - Inhaled Oxygen - Concentration 04/15/2018 9:09 AM SHRIMP TRAWLER Weight 50.3 kg (111 lb) 04/15/2018 9:09 AM SHRIMP TRAWLER Height 157.5 cm (5' 2") 04/15/2018 9:09 AM SHRIMP TRAWLER Body Mass Index 20.3 in this encounter Progress Notes * Chuck Montague Jr., MD - 04/15/2018 9:20 AM SHRIMP TRAWLER HISTORY OF PRESENT ILLNESS: Sunitha Feldman is [...] The floor of mouth is without edema. [place]'s ducts and [place]'s ducts are patent with [...] of any of the laryngeal findings today. MP TRAWLER in this encounter Plan of Treatment Not on fileas of this encounter Results * CT NECK W/CONTRAST (05/04/2018) Narrative Performed At Performing Organization Address City/State/Zipcode Phone Number [facility] in this encounter Visit Diagnoses Diagnosis Epiglottic cyst Other diseases of larynx Neck pain Cervicalgia Calcification of cartilage Other disorders of bone and cartilage in this encounter
--- OUTSIDE RECORDS SUMMARY | 2018-06-01 17:01 | XMS REPORT | Encounter Summary ---
Author Author [facility] Organization [facility] Address Unknown Phone Unavailable Care Team Providers Care Latin Teacher Name Role Phone Aamir Magdaleno MD Unavailable Greyson Powell RN Unavailable Unavailable Ella Carrion RN Unavailable Unavailable Misa Alvarez MD Unavailable Smitha Milian RN Unavailable Unavailable Tito Limon MD Unavailable John Raymond MD Unavailable Chioma Jacques RN Unavailable Unavailable Megan Bryan RN Unavailable Unavailable Myesha Orona ELECTRICAL WIRER Unavailable Arvin Aguilar RN Unavailable Unavailable Manasa Savage RN Unavailable Unavailable Andrea Durant ELECTRICAL WIRER Unavailable Jack Davila RN Unavailable Unavailable Vanessa Perez MD Unavailable Radha Malin MD Unavailable Chuck Frias MD PCP Encounter Details Care Team Description Date Type Department 05/04/2018 Hospital [facility] [address] [place] [address] Social History Date Tobacco Use Types Packs/Day [...] travel history available. as of this encounter Medications at Time of Discharge Start Date End Date Medication Sig Dispensed Refills atorvastatin (LIPITOR) 40 Take 40 mg by 0 mg tablet mouth daily. CYANOCOBALAMIN (VITAMIN Take by 0 B-12 PO) mouth. dronabinol (MARINOL) 5 mg Take 5 mg by 0 capsule mouth twice daily. ERGOCALCIFEROL (VITAMIN D Take 1,000 0 PO) Units by mouth Daily. 10/02/2010 escitalopram (LEXAPRO) 20 Take 1 Tab by 30 Tab 0 mg PO tablet mouth daily. 08/28/2017 linaclotide 72 mcg cap Take 72 mcg 30 capsule 2 by mouth daily 30 minutes before breakfast. MULTIVITAMINS Take by 0 (MULTIVITAMIN PO) mouth. omeprazole DR(+) Take 40 mg by 0 (PRILOSEC) 40 mg capsule mouth daily before breakfast. other medication 1 Dose. 0 humalog lantis 30 untis @@ night 05/13/2009 oxycodone/acetaminophen Take 1 Tab by 30 0 (PERCOCET) 5/325 mg mouth Every 4 tablet Hours as needed for Pain. 12/01/2017 polyethylene glycol 3350 Take 17 g by 510 g 2 (MIRALAX) 17 gram/dose mouth daily. powder pregabalin (LYRICA) 300 Take 300 mg 0 mg capsule by mouth twice daily. rivaroxaban (XARELTO) 20 Take 20 mg by 0 mg tablet mouth daily. Take with food. spacer inhalation device by SEE ADMIN 0 (AEROCHAMBER) INSTRUCTIONS spcrIndications: PRN route as directed. Indications: PRN TIZANIDINE HCL Take by 0 (TIZANIDINE PO) mouth. 03/17/2009 topiramate (TOPAMAX) 100 Take 1 Tab by 60 2 mg tablet mouth Twice Daily. ZOLPIDEM TARTRATE (AMBIEN Take by 0 PO) mouth. as of this encounter Plan of Treatment Not on fileas of this encounter Procedures Comments Procedure Name Priority Date/Time Associated Diagnosis CT NECK EXTERNAL IMAGING Routine 05/04/2018 Diagnosis unknown 3:05 PM SCARFING MACHINE OPERATOR in this encounter Results * CT NECK EXTERNAL IMAGING (05/04/2018 3:05 PM SCARFING MACHINE OPERATOR) Narrative Performed At This order has been auto finalized and does not contain a result. in this encounter Visit Diagnoses Diagnosis Diagnosis unknown Other unknown and unspecified cause of morbidity or mortality in this encounter
--- OUTSIDE RECORDS SUMMARY | 2018-06-01 17:02 | XMS REPORT ---
Author Author HORACE HIGGINS [facility] Address [address] [place] [address] Care Team Providers Care Lockstitch Sleeve Setter Name Role Phone HORACE HIGGINS Unavailable PROBLEMS Type Condition ICD9-CM Code [id number] Code Onset Dates Condition Status SNOMED Code Problem Reactive depression F32.9 Active 15989195 Problem Migraine without aura and without status migrainosus, not intractable G43.009 Active 109940884 Problem PTSD (post-traumatic stress disorder) F43.10 Active 21557719 Problem Migraine headache without aura G43.009 Active 455364852 Problem Gastroparesis K31.84 Active 222384413 Problem Migraine headache G43.909 Active 37456605 Problem Diabetes E11.9 Active 31912468 Problem Neuropathy G62.9 Active 739905473 Problem Tobacco dependency F17.200 Active 44950254 Problem Annual physical exam Z00.00 Active 080601922 Problem Other chronic pain G89.29 Active 53123512 Problem Irritable bowel syndrome with constipation K58.1 Active 286435523 Problem 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 Active 474699310 Problem Uncomplicated asthma, unspecified asthma severity J45.909 Active 460790126 Problem Mixed hyperlipidemia E78.2 Active 471010672 Problem Type 2 diabetes mellitus with diabetic autonomic (poly)neuropathy E11.43 Active 56192409 Problem History of colon polyps Z86.010 Active 841043877 Problem Primary insomnia F51.01 Active 5649107 Problem Low TSH level R94.6 Active 061743940 Problem Anorexia R63.0 Active 19470454 Problem Asthma exacerbation J45.901 Active 748402945 Problem Back pain M54.9 Active 310122466 Problem Weight loss R63.4 Active 459079952 Problem Diabetic polyneuropathy associated with type 2 diabetes mellitus E11.42 Active 62605174 ALLERGIES No Information ENCOUNTERS Encounter Location Date Diagnosis [facility] [address] [facility] [id number] [place] [address] 18365- 5722 May, [facility] [id number] [place] [address] 03650- 2837 May, [facility] [id number] [place] [address] 84358- 8593 Apr, [facility] [id number] [place] [address] 28864- 2479 Apr, [facility] [address] 85629- 6011 Apr, Neuropathy G62.9 [facility] [address] 96477- 2922 Apr, [facility] [id number] [place] [address] 38737- 8378 Apr, Migraine headache without aura G43.009 [facility] [address] 88263- 1775 Apr, Diabetes E11.9 ; Migraine headache G43.909 and Other chronic pain G89.29 [facility] [id number] [place] [address] 47166- 1414 Mar, LLQ pain R10.32 and Other dorsalgia M54.89 [facility] [id number] [place] [address] 69604- 4802 Mar, [facility] [id number] [place] [address] 68198- 3193 Mar, Pain in left shoulder M25.512 [facility] [id number] [place] [address] 19786- 8760 Mar, [facility] [id number] [place] [address] 39571- 1864 Mar, [facility] [id number] [place] [address] 22166- 6381 Mar, [facility] [address] [place] [address] 0427 Mar, Vaginal discharge N89.8 [facility] [address] 965200- 8682 Mar, PTSD (post-traumatic stress disorder) F43.10 [facility] [id number] [place] [address] 01258- 2693 Mar, [facility] [address] 33101- 9848 Feb, LLQ pain R10.32 and Other dorsalgia M54.89 [place] [address] 07081- 1931 Feb, [facility] [id number] [place] [address] 08988- 8550 Feb, [facility] [address] 56557- 8365 Feb, PTSD (post-traumatic stress disorder) F43.10 [facility] [id number] [place] [address] 84334- 2941 Feb, PTSD (post-traumatic stress disorder) F43.10 [facility] [id number] [place] [address] 88764- 3047 Feb, Pain in left shoulder M25.512 and Other chronic pain G89.29 [place] [id number] [place] [address] 17378- 1897 Feb, LLQ pain R10.32 and Other dorsalgia M54.89 [facility] [id number] [place] [address] 26514- 1418 Feb, [facility] [id number] [place] [address] 80668- 2446 Feb, Right lower quadrant abdominal pain R10.31 ; Pain in left shoulder M25.512 ; Other chronic pain G89.29 and Encounter for immunization Z23 [facility] [id number] [place] [address] 90211- 6587 Feb, [place] [address] 26398- 5900 25 Jan, 2018 Dysfunction of left eustachian tube H69.82 [facility] [id number] [place] [address] 33323- 2037 24 Jan, 2018 [facility] [address] 31295- 4897 Jan, [facility] [id number] [place] [address] 61706- 5741 Jan, [place] [address] 65083- 3601 Jan, [place] [address] 67265- 9147 Jan, Left upper arm pain M79.622 [place] [address] 09148- 2027 Jan, [place] [address] 88954- 5513 Jan, PTSD (post-traumatic stress disorder) F43.10 and Tobacco dependency F17.200 [place] [address] 46427- 8464 10 Jan, 2018 Back pain M54.9 ; Type 2 diabetes mellitus with diabetic autonomic (poly)neuropathy E11.43 ; Neuropathy G62.9 ; Irritable bowel syndrome with constipation K58.1 ; Sprain of other part of left shoulder region, initial encounter S43.492A and Dysfunction of left eustachian tube H69.82 [place] [address] 08669- 8084 06 Jan, 2018 [facility] [id number] [place] [address] 79829- 2331 05 Jan, 2018 Neuropathy G62.9 ; LLQ pain R10.32 and Other dorsalgia M54.89 [facility] [id number] [place] [address] 19882- 0569 Jan, [facility] [address] 68867- 1264 Jan, [facility] [address] 74199- 7359 Dec, Right upper quadrant abdominal pain R10.11 [facility] [address] 21023- 1866 Dec, PTSD (post-traumatic stress disorder) F43.10 [facility] [address] 79201- 4178 Dec, LLQ pain R10.32 [place] [address] 47404- 7581 Dec, Other dorsalgia M54.89 [place] [address] 31028- 7485 Dec, Neuropathy G62.9 [place] [address] 31560- 8615 Dec, [facility] [address] 51994- 9632 Nov, Irritable bowel syndrome with constipation K58.1 ; Uncomplicated asthma, unspecified asthma severity J45.909 and Type 2 diabetes mellitus with diabetic autonomic (poly)neuropathy E11.43 [facility] [id number] [place] [address] [id number] Nov, Dental examination Z01.20 [facility] [address] 37106- 6689 Nov, Other dorsalgia M54.89 [facility] [address] 40051- 1074 Nov, LLQ pain R10.32 ; Low TSH level R94.6 and Gastroparesis K31.84 [facility] [id number] [place] [address] 66402- 3038 09 Nov, 2017 Anorexia R63.0 [place] [id number] [place] [address] 23525 2546 Nov, Asthma exacerbation J45.901 [place] [address] 34995- 3456 27 Oct, 2017 PTSD (post-traumatic stress disorder) F43.10 [place] [id number] [place] [address] 35256 2546 Oct, [place] [address] 51839- 9006 Oct, PTSD (post-traumatic stress disorder) F43.10 and Tobacco dependency F17.200 [place] [address] 21679- 5443 Oct, [place] [id number] [place] [address] 19748- 4034 Oct, Other dorsalgia M54.89 [place] [id number] [place] [address] 66507- 9326 Oct, Anorexia R63.0 [place] [id number] [place] [address] 93489- 3578 September, PTSD (post-traumatic stress disorder) F43.10 [place] [id number] [place] [address] 42027- 4405 September, Low TSH level R94.6 [place] [id number] [place] [address] 63818- 3522 September, Other dorsalgia M54.89 [place] [id number] [place] [address] 45327- 2546 September, Annual physical exam Z00.00 and Migraine without aura and without status migrainosus, not intractable G43.009 [place] [id number] [place] [address] 91782- 5858 September, Abnormal TSH R94.6 and Dysfunction of left eustachian tube H69.82 [facility] [id number] [place] [address] 69425- 4338 Aug, [facility] [address] 40106- 0545 Aug, Anorexia R63.0 [facility] [address] [id number] Aug, Dental examination Z01.20 and Xerostomia K11.7 [place] [address] 66910- 2203 Aug, Neuropathy G62.9 [place] [address] 48717- 7460 Aug, [place] [address] 50294- 7335 Aug, Other dorsalgia M54.89 [place] [address] 86335- 2833 Aug, Type 2 diabetes mellitus with diabetic autonomic (poly) neuropathy E11.43 ; Diabetic polyneuropathy associated with type 2 diabetes mellitus E11.42 ; Bronchitis J40 ; Gastroparesis K31.84 and Reactive depression F32.9 [place] [address] 78902- 8542 Aug, PTSD (post-traumatic stress disorder) F43.10 [place] [address] 62642- 0442 Aug, Other dorsalgia M54.89 and Anorexia R63.0 [facility] [id number] [place] [address] 44053- 3708 Jul, [facility] [id number] [place] [address] 49204- 8196 Jul, Other dorsalgia M54.89 [facility] [id number] [place] [address] 57383- 3667 Jul, [facility] [id number] [place] [address] 54587 2546 Jul, [facility] [id number] [place] [address] 25034 2546 Jul, PTSD (post-traumatic stress disorder) F43.10 [facility] [id number] [place] [address] 37771- 9786 Jul, [facility] [id number] [place] [address] 70711- 0226 Jul, [facility] [id number] [place] [address] 37150- 9506 Jul, [facility] [id number] [place] [address] 32283- 0326 Jul, Anorexia R63.0 [facility] [id number] [place] [address] 90658- 1564 Jun, [facility] [id number] [place] [address] 65041- 0913 22 Jun, 2017 Vaginal discharge N89.8 ; Visit for gynecologic examination Z01.419 and Pelvic pressure in female R10.2 [facility] [id number] [place] [address] 49624- 3896 Jun, [facility] [id number] [place] [address] 07439 2546 Jun, Other dorsalgia M54.89 [facility] [address] 47158 2546 16 Jun, 2017 [facility] [id number] [place] [address] 84543 2546 Jun, [facility] [id number] [place] [address] 29542- 1895 Jun, [facility] [id number] [place] [address] 96366- 4260 May, Back pain M54.9 [facility] [id number] [place] [address] 94032- 7146 May, Anorexia R63.0 [facility] [id number] [place] [address] 22469- 8357 May, Other dorsalgia M54.89 [facility] [id number] [place] [address] 22618- 0446 May, [facility] [address] 37139- 2549 May, Bronchitis J40 [facility] [id number] [place] [address] 89694- 8270 May, Type 2 diabetes mellitus with diabetic autonomic (poly) neuropathy E11.43 ; 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 ; Back pain M54.9 and Neuropathy G62.9 [facility] [id number] [place] [address] 38287- 6933 May, Left breast mass N63.20 [facility] [id number] [place] [address] 76004- 4566 May, [facility] [id number] [place] [address] 34874- 3647 Apr, Other dorsalgia M54.89 [facility] [id number] [place] [address] 86399- 7757 Apr, Anorexia R63.0 [facility] [id number] [place] [address] 33004- 1299 Apr, Anorexia R63.0 [facility] [id number] [place] [address] 33840- 7468 Apr, Mass of left breast N63.20 [facility] [id number] [place] [address] 12093- 6419 Apr, [facility] [id number] [place] [address] 94701- 1613 Apr, [facility] [id number] [place] [address] 47432- 8020 Apr, Diarrhea of presumed infectious origin A09 [facility] [id number] [place] [address] 04477- 3815 Apr, Encounter for immunization Z23 [facility] [id number] [place] [address] 62804- 2932 Apr, [facility] [id number] [place] [address] 43224- 9064 Mar, Other dorsalgia M54.89 [facility] [id number] [place] [address] 74077- 1977 Mar, [facility] [id number] [place] [address] 98262- 6078 Mar, [facility] [id number] [place] [address] 67068- 0418 Mar, Anorexia R63.0 [facility] [id number] [place] [address] 09794- 1811 Mar, [facility] [id number] [place] [address] 92965- 4804 Mar, Other dorsalgia M54.89 [facility] [id number] [place] [address] 39424- 6078 Mar, [facility] [id number] [place] [address] 94422- 8405 Mar, Encounter for immunization Z23 [facility] [id number] [place] [address] 10332- 8912 Feb, Anorexia R63.0 [facility] [id number] [place] [address] 38259- 1462 Feb, Diabetes E11.9 [facility] [id number] [place] [address] 21786- 9576 Feb, Back pain M54.9 and Diabetes E11.9 [facility] [id number] [place] [address] 15357- 1400 Feb, Diabetes E11.9 [facility] [address] 97268- 4002 Feb, Neuropathy G62.9 [facility] [address] 18751- 7378 Feb, Encounter for immunization Z23 ; Epigastric pain R10.13 ; Weight loss, abnormal R63.4 and Neuropathy G62.9 [facility] [address] [id number] Feb, [facility] [address] 22180- 9430 Feb, [facility] [address] 87723- 4856 Feb, Intractable vomiting with nausea, unspecified vomiting type R11.2 [facility] [id number] [place] [address] 23635 -8760 Feb, Chronic nausea R11.0 [facility] [id number] [place] [address] 71775- 2397 Feb, Other dorsalgia M54.89 [facility] [id number] [place] [address] 74014- 2204 Jan, [facility] [address] 85103- 9032 Jan, [facility] [address] 35601- 0922 Jan, [facility] [id number] [place] [address] 09565- 7103 Jan, [facility] [id number] [place] [address] 08175 2546 08 Jan, 2017 Asthma exacerbation J45.901 ; Bronchitis J40 and Neuropathy G62.9 [facility] [id number] [place] [address] 16926 2546 06 Jan, 2017 Anorexia R63.0 [facility] [id number] [place] [address] 65386 2546 Jan, Other dorsalgia M54.89 [facility] [id number] [place] [address] 48733- 7196 Dec, [facility] [id number] [place] [address] 03476- 8416 Dec, [facility] [id number] [place] [address] 32098- 8916 Dec, Anorexia R63.0 [facility] [id number] [place] [address] 06851- 9751 Dec, Primary insomnia F51.01 [facility] [id number] [place] [address] 34948 2543 Dec, Other dorsalgia M54.89 [facility] [id number] [place] [address] 74562 2546 Dec, [facility] [id number] [place] [address] 84332- 0906 Nov, [facility] [id number] [place] [address] 17469- 3538 Nov, [facility] [id number] [place] [address] 10529- 0547 Nov, [facility] [id number] [place] [address] 44900- 2214 Nov, History of colon polyps Z86.010 [facility] [id number] [place] [address] 29643- 0925 Nov, Weight loss R63.4 ; Nausea and vomiting, intractability of vomiting not specified, unspecified vomiting type R11.2 and Abnormal LFTs R79.89 [facility] [address] 29020- 3120 18 Nov, 2016 [facility] [id number] [place] [address] 17143- 6933 Nov, Neuropathy G62.9 and Pain in right knee M25.561 [facility] [address] 12483- 4592 12 Nov, 2016 Back pain M54.9 [facility] [address] 62253- 8554 10 Nov, 2016 [facility] [id number] [place] [address] 32090- 0736 Nov, Bronchitis J40 [facility] [address] 25580- 2920 Nov, Weight loss R63.4 [facility] [address] 37442- 6210 16 Oct, 2016 Back pain M54.9 [facility] [id number] [place] [address] 69607- 8967 16 Oct, 2016 [facility] [id number] [place] [address] 16610- 9861 Oct, Back pain M54.9 [facility] [id number] [place] [address] 01687- 7769 13 Oct, 2016 Type 2 diabetes mellitus without complications E11.9 and Bronchitis J40 [facility] [address] 12803- 7814 05 Oct, 2016 [facility] [id number] [place] [address] 46551- 1645 Oct, [facility] [id number] [place] [address] 79318- 2781 September, Gastroparesis K31.84 ; Type 2 diabetes mellitus with diabetic autonomic (poly)neuropathy E11.43 and Neuropathy G62.9 [facility] [address] 77751- 9424 September, Other dorsalgia M54.89 [facility] [id number] [place] [address] 32608- 2110 September, [facility] [address] 56391- 3898 September, [facility] [address] 45535- 2273 Aug, Gastroparesis K31.84 and Radicular leg pain M54.10 [place] [address] [address] Aug, Anorexia R63.0 [place] [address] [address] Aug, Bronchitis J40 [place] [id number] [place] [address] 84457- 7789 Aug, Back pain M54.9 [place] [id number] [place] [address]- [address] Aug, Routine gynecological examination Z01.419 ; Routine screening for STI (sexually transmitted infection) Z11.3 and Yeast infection of the vagina B37.3 [facility] [id number] [place] [address] 43979- [address]18 Jul, Other dorsalgia M54.89 [facility] [id number] [place] [address] 20209- 2558 Jul, Diabetes E11.9 and Gastroparesis K31.84 [facility] [id number] [place] [address] 02342- 3432 Jun, [facility] [id number] [place] [address] 12269- 7215 24 Jun, 2016 Back pain M54.9 [facility] [id number] [place] [address] 2546 14 Jun, 2016 Neuropathy G62.9 [facility] [id number] [place] [address] [id number] 02 Jun, 2016 Encounter for dental examination Z01.20 [facility] [address] [address]- [address] 01 Jun, 2016 Gastroparesis 536.3 and Anorexia R63.0 [facility] [address] [address]- [address] May, Other dorsalgia M54.89 [facility] [address] [address]- [address] 10 May, 2016 Periumbilical abdominal pain R10.33 ; Weight loss R63.4 and Gastroparesis K31.84 [facility] [id number] [place] [address] 72452- 1569 May, Back pain M54.9 [facility] [address] [address] 2546 Apr, Anorexia R63.0 [facility] [id number] [place] [address] 42642 2546 Apr, Anorexia R63.0 [facility] [id number] [place] [address] 2546 Apr, Back pain M54.9 [facility] [id number] [place] [address] 67252 2546 Apr, Back pain M54.9 [facility] [id number] [place] [address]42 2546 Apr, [facility] [id number] [place] [address] 67457 2546 Apr, Bronchitis J40 and Neuropathy G62.9 [facility] [id number] [place] [address] 63528- 0302 Apr, Neuropathy G62.9 [facility] [id number] [place] [address] 57556- [address]286 Apr, [facility] [id number] [place] [address] 96776- 0390 Apr, Back pain M54.9 [facility] [address] [address] 2545 Mar, Type 2 diabetes mellitus with diabetic autonomic (poly) neuropathy E11.43 [place] [id number] [place] [address] 73337- 2251 Mar, Type 2 diabetes mellitus without complications E11.9 [place] [id number] [place] [address] 84116- 3123 Mar, Neuropathy G62.9 [place] [id number] [place] [address] 32422- 6990 Mar, [place] [id number] [place] [address] 30365- 2731 Mar, Breast cancer screening Z12.39 [place] [id number] [place] [address] 95728- 1932 Mar, Other dorsalgia M54.89 [place] [id number] [place] [address] 39216- 1741 Feb, [place] [id number] [place] [address] 80563- 2542 Jan, Neuropathy G62.9 ; Type 2 diabetes mellitus with diabetic autonomic (poly)neuropathy E11.43 ; Uncomplicated asthma, unspecified asthma severity J45.909 and Encounter for immunization Z23 [facility] [id number] [place] [address] 42864- 2543 Jan, [place] [id number] [place] [address] 71213- 1201 Jan, [facility] [address] [address] 8026 Dec, [facility] [id number] [place] [address] 90520- 2629 Dec, [facility] [id number] [place] [address] 52373- 7330 Nov, [facility] [id number] [place] [address] 42677- 9859 Nov, Back pain M54.9 [facility] [id number] [place] [address] 87459- 3847 Nov, Neuropathy G62.9 ; Mixed hyperlipidemia E78.2 ; Type 2 diabetes mellitus with diabetic autonomic (poly)neuropathy E11.43 and 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 [facility] [id number] [place] [address] 99464- 0641 Oct, [facility] [id number] [place] [address] 09095- 8948 Oct, Other dorsalgia M54.89 [facility] [id number] [place] [address] 75672- 7607 September, Primary insomnia F51.01 [facility] [id number] [place] [address] 64026- 5693 September, [facility] [id number] [place] [address] 76357- 4537 Aug, Other dorsalgia M54.89 [facility] [address] [address] 4682 Jul, [facility] [id number] [place] [address] 11297- 8966 Jul, Other dorsalgia M54.89 [facility] [address] [address] 4044 Jul, Diabetes E11.9 ; Back pain M54.9 ; Neuropathy G62.9 and Gastroparesis K31.84 [facility] [id number] [place] [address] 55808- 7296 Jun, [facility] [id number] [place] [address] 21317 2546 Jun, Other dorsalgia M54.89 [facility] [id number] [place] [address] 82765- 9390 May, [facility] [id number] [place] [address] 27491 2540 May, Radicular leg pain M54.10 and Other dorsalgia M54.89 [facility] [id number] [place] [address] 36034- 8230 Apr, [facility] [id number] [place] [address] 38221- 4118 Mar, [facility] [id number] [place] [address] 06370- 3394 Mar, [facility] [id number] [place] [address] 30174- 0616 Mar, Radicular leg pain M54.10 [facility] [id number] [place] [address] 70020- 6086 Feb, [facility] [id number] [place] [address] 70714- 1996 Feb, [facility] [id number] [place] [address] 60310- 2549 Feb, [facility] [id number] [place] [address] 70654- 3465 Jan, [facility] [id number] [place] [address] 56438- 0412 Jan, IBS (irritable bowel syndrome) 564.1 [facility] [id number] [place] [address] 04737- 5297 Jan, [facility] [id number] [place] [address] 98785- 4941 Jan, [facility] [id number] [place] [address] 26086- 9104 Jan, Diabetes mellitus without mention of complication, type II or unspecified type, not stated as uncontrolled 250.00 ; Gastroparesis 536.3 and Hypoacusis 389.9 [facility] [id number] [place] [address] 45282- 5268 Jan, [facility] [id number] [place] [address] 98006- 9478 Jan, [facility] [id number] [place] [address] 23024- 3539 Dec, [facility] [id number] [place] [address] 98234- 6292 Dec, [facility] [id number] [place] [address] 73144- 4851 Dec, [facility] [id number] [place] [address] 39094- 7134 Dec, Back pain 724.5 and Gastroparesis 536.3 [facility] [id number] [place] [address] 17575- 9164 Nov, [facility] [id number] [place] [address] [id number] Nov, Dental examination V72.2 [facility] [address] [address]- 0854 Nov, [facility] [id number] [place] [address] 16659- 0926 Nov, [facility] [id number] [place] [address] 42029- 8262 Nov, Depressive disorder, not elsewhere classified 311 and No condition on [place] II V71.09 [facility] [address] [address]- 6274 07 Nov, 2014 Diabetes 250.00 and Symptomatic menopausal or female climacteric states 627.2 [facility] [address] [address]- 2631 24 Oct, 2014 [facility] [address] [address]- 5548 15 Oct, 2014 Lumbar strain 847.2 [facility] [address] [address]- 2042 Oct, Gastroparesis 536.3 and Unspecified myalgia and myositis 729.1 [facility] [address] [address]- 0717 14 Aug, 2014 [facility] [address] [address]- 4695 Aug, [facility] [address] [address]- 2334 Jul, [facility] [address] [address]- 3233 Jul, [facility] [address] [address]- 4908 Jul, [facility] [address] [address]- 6373 Jul, [facility] [address] [address]- 3725 Jul, [facility] [address] [address]- 0616 18 Jun, 2014 [facility] [address] [address]- 4846 Jun, [facility] [id number] [address]- 1746 Jun, [facility] [id number] [place] [address]- 3587 May, [facility] [address] [id number] [place] [address]- 5264 May, [facility] [place] [facility] [address] [id number] [place] [address]- 0662 Mar, [facility] [address] [id number] [place] [address]- 5725 Mar, [facility] [place] [facility] [address] [id number] [place] [address]- 6560 Mar, [facility] [place] [facility] [address] [id number] [place] [address]- 8177 Mar, [facility] [place] [facility] [address] [id number] [place] [address]- 3619 Mar, [facility] [place] [facility] [address] [id number] [place] [address]- 7934 Mar, [facility] [address] [id number] [place] [address]- 3818 Feb, [facility] [place] [facility] [address] [id number] [place] [address]- 8105 Feb, [facility] [address] [id number] [place] [address]- 2602 Nov, [facility] [place] [facility] [address] [id number] [place] [address]- 3251 Nov, [facility] [place] [facility] [address] [id number] [place] [address]- 5749 Nov, [facility] [place] [facility] [address] [id number] [place] [address]- 9566 Oct, [facility] [place] [facility] [address] [id number] [place] [address] 2546 September, [facility] [place] [facility] [address] [id number] [place] [address]- 6195 Aug, [facility] [address] [id number] [place] [address]- 9416 15 Aug, 2012 [facility] [place] [facility] [address] [id number] [place] [address]- 4245 Aug, [facility] [place] [facility] [address] [id number] [place] [address]- 7799 Aug, [facility] [place] [facility] [address] [id number] [place] [address]- 1950 Aug, [facility] [place] [facility] [address] [id number] [place] [address]- 4053 Aug, [facility] [place] [facility] [address] [id number] [place] [address]- 3322 Aug, [facility] [place] [facility] [address] [id number] [place] [address]- 8018 Aug, [facility] [place] [facility] [address] [id number] [address]- 6004 Jul, [facility] [place] [facility] [address] [id number] [place] [address]- 1724 Jul, [facility] [place] [facility] [address] [id number], [place] [address]- 3209 Jun, [facility] [place] [facility] [address] [id number] [address]- 4025 Jun, [facility] [place] [facility] [address] [id number], [place] [address]- 2667 Jun, [facility] [place] [facility] [address] [id number] [place] [address]- 6251 Jun, [facility] [place] [facility] [address] [id number] [place] [address]- 5197 Jun, [facility] [place] [facility] [address] [id number] [place] [address]- 0031 Jun, [facility] [place] [facility] [id number] [address]- 2546 Jun, [facility] [id number] [address]- 1526 May, [facility] [address], [place] [address]- 2546 May, [facility] [id number] [address]- 5416 May, [facility] [address] [address]- 2546 May, [facility] [address], [place] [address]- 0133 Mar, [facility] [address], [place] [address]- 5706 Mar, [facility] [address] [address]- 6476 Jan, IMMUNIZATIONS No Known Immunizations SOCIAL HISTORY [...]
--- OUTSIDE RECORDS SUMMARY | 2018-06-01 17:03 | XMS REPORT ---
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 Name Role Phone HORACE HIGGINS Unavailable PROBLEMS Type Condition ICD9-CM Code QMX06-PQ Code Onset Dates Condition Status SNOMED Code Problem Reactive depression F32.9 Active 88118237 Problem Migraine without aura and without status migrainosus, not intractable G43.009 Active 775725288 Problem PTSD (post-traumatic stress disorder) F43.10 Active 57656913 Problem Migraine headache without aura G43.009 Active 596601624 Problem Gastroparesis K31.84 Active 026913976 Problem Migraine headache G43.909 Active 03006473 Problem Diabetes E11.9 Active 46506946 Problem Neuropathy G62.9 Active 138946633 Problem Tobacco dependency F17.200 Active 41172357 Problem Annual physical exam Z00.00 Active 141611824 Problem Other chronic pain G89.29 Active 03223904 Problem Irritable bowel syndrome with constipation K58.1 Active 604131030 Problem intermediate current use of insulin Z79.4 Active 720794228 Problem Uncomplicated asthma, unspecified asthma severity J45.909 Active 275232618 Problem Mixed hyperlipidemia E78.2 Active 296527716 Problem Type 2 diabetes mellitus with diabetic autonomic (poly)neuropathy E11.43 Active 10036244 Problem History of colon polyps Z86.010 Active 697524966 Problem Primary insomnia F51.01 Active 1139910 Problem Low TSH level R94.6 Active 866109741 Problem Anorexia R63.0 Active 59809367 Problem Asthma exacerbation J45.901 Active 799830969 Problem Back pain M54.9 Active 513238652 Problem Weight loss R63.4 Active 096147699 Problem Diabetic polyneuropathy associated with type 2 diabetes mellitus E11.42 Active 45298607 ALLERGIES No Information ENCOUNTERS Encounter Location Date Diagnosis [facility] [address] [facility] [id number] [place] [address] 42249- 7911 May, [facility] [id number] [place] [address] 87704- 2635 May, [facility] [id number] [place] [address] 78885- 7329 Apr, [facility] [id number] [place] [address] 50830- 2373 Apr, [facility] [address] 42510- 2554 Apr, Neuropathy G62.9 [facility] [address] 13553- 7112 Apr, [facility] [id number] [place] [address] 34777- 2246 Apr, Migraine headache without aura G43.009 [facility] [address] 64131- 0573 Apr, Diabetes E11.9 ; Migraine headache G43.909 and Other chronic pain G89.29 [facility] [id number] [place] [address] 96832- 5177 Mar, LLQ pain R10.32 and Other dorsalgia M54.89 [facility] [id number] [place] [address] 97848- 5721 Mar, [facility] [id number] [place] [address] 83375- 7622 Mar, Pain in left shoulder M25.512 [facility] [id number] [place] [address] 75966- 0815 Mar, [facility] [id number] [place] [address] 61881- 4418 Mar, [facility] [id number] [place] [address] 01880- 1739 Mar, [facility] [address] [place] [address] 2559 Mar, Vaginal discharge N89.8 [facility] [address] 320492- 2265 Mar, PTSD (post-traumatic stress disorder) F43.10 [facility] [id number] [place] [address] 06598- 1635 Mar, [facility] [address] 24414- 0426 Feb, LLQ pain R10.32 and Other dorsalgia M54.89 [place] [address] 58693- 9838 Feb, [facility] [id number] [place] [address] 30286- 9780 Feb, [facility] [address] 21201- 8726 Feb, PTSD (post-traumatic stress disorder) F43.10 [facility] [id number] [place] [address] 84993- 0255 Feb, PTSD (post-traumatic stress disorder) F43.10 [place] [id number] [place] [address] 50057- 7529 Feb, Pain in left shoulder M25.512 and Other chronic pain G89.29 [place] [id number] [place] [address] 92549- 4994 Feb, LLQ pain R10.32 and Other dorsalgia M54.89 [facility] [id number] [place] [address] 41608- 7680 Feb, [facility] [id number] [place] [address] 39527- 2606 Feb, Right lower quadrant abdominal pain R10.31 ; Pain in left shoulder M25.512 ; Other chronic pain G89.29 and Encounter for immunization Z23 [facility] [id number] [place] [address] 10835- 3017 Feb, [place] [address] 92344- 5474 25 Jan, 2018 Dysfunction of left eustachian tube H69.82 [facility] [id number] [place] [address] 81043- 5654 24 Jan, 2018 [facility] [address] 92896- 9258 Jan, [facility] [id number] [place] [address] 52573- 6155 Jan, [place] [address] 00931- 0762 Jan, [place] [address] 04677- 8598 Jan, Left upper arm pain M79.622 [place] [address] 55884- 7446 Jan, [place] [address] 52558- 9152 Jan, PTSD (post-traumatic stress disorder) F43.10 and Tobacco dependency F17.200 [place] [address] 44620- 5112 10 Jan, 2018 Back pain M54.9 ; Type 2 diabetes mellitus with diabetic autonomic (poly)neuropathy E11.43 ; Neuropathy G62.9 ; Irritable bowel syndrome with constipation K58.1 ; Sprain of other part of left shoulder region, initial encounter S43.492A and Dysfunction of left eustachian tube H69.82 [place] [address] 04639- 1817 06 Jan, 2018 [facility] [id number] [place] [address] 26209- 3708 05 Jan, 2018 Neuropathy G62.9 ; LLQ pain R10.32 and Other dorsalgia M54.89 [facility] [id number] [place] [address] 85986- 8547 Jan, [facility] [address] 33492- 0034 Jan, [facility] [address] 79430- 4439 Dec, Right upper quadrant abdominal pain R10.11 [facility] [address] 68322- 6619 Dec, PTSD (post-traumatic stress disorder) F43.10 [facility] [address] 15800- 7489 Dec, LLQ pain R10.32 [place] [address] 36392- 1728 Dec, Other dorsalgia M54.89 [place] [address] 06084- 8727 Dec, Neuropathy G62.9 [place] [address] 37414- 7386 Dec, [facility] [address] 62954- 4135 Nov, Irritable bowel syndrome with constipation K58.1 ; Uncomplicated asthma, unspecified asthma severity J45.909 and Type 2 diabetes mellitus with diabetic autonomic (poly)neuropathy E11.43 [facility] [id number] [place] [address] [id number] Nov, Dental examination Z01.20 [facility] [address] 77594- 8714 Nov, Other dorsalgia M54.89 [facility] [address] 78928- 5539 Nov, LLQ pain R10.32 ; Low TSH level R94.6 and Gastroparesis K31.84 [facility] [id number] [place] [address] 69414- 2806 09 Nov, 2017 Anorexia R63.0 [place] [id number] [place] [address] 45695 2546 Nov, Asthma exacerbation J45.901 [place] [address] 33884- 2966 27 Oct, 2017 PTSD (post-traumatic stress disorder) F43.10 [place] [id number] [place] [address] 28115 2546 Oct, [place] [address] 94639- 7916 Oct, PTSD (post-traumatic stress disorder) F43.10 and Tobacco dependency F17.200 [place] [address] 07825- 1672 Oct, [place] [id number] [place] [address] 74745- 3019 Oct, Other dorsalgia M54.89 [place] [id number] [place] [address] 62673- 1676 Oct, Anorexia R63.0 [place] [id number] [place] [address] 67790- 4650 September, PTSD (post-traumatic stress disorder) F43.10 [place] [id number] [place] [address] 33174- 3610 September, Low TSH level R94.6 [place] [id number] [place] [address] 73522- 9414 September, Other dorsalgia M54.89 [place] [id number] [place] [address] 50502- 2546 September, Annual physical exam Z00.00 and Migraine without aura and without status migrainosus, not intractable G43.009 [place] [id number] [place] [address] 14930- 5744 September, Abnormal TSH R94.6 and Dysfunction of left eustachian tube H69.82 [facility] [id number] [place] [address] 64184- 4504 Aug, [facility] [address] 29675- 3758 Aug, Anorexia R63.0 [facility] [address] [id number] Aug, Dental examination Z01.20 and Xerostomia K11.7 [place] [address] 99832- 7035 Aug, Neuropathy G62.9 [place] [address] 87036- 4065 Aug, [place] [address] 76837- 4825 Aug, Other dorsalgia M54.89 [place] [address] 06669- 3969 Aug, Type 2 diabetes mellitus with diabetic autonomic (poly) neuropathy E11.43 ; Diabetic polyneuropathy associated with type 2 diabetes mellitus E11.42 ; Bronchitis J40 ; Gastroparesis K31.84 and Reactive depression F32.9 [place] [address] 83605- 7037 Aug, PTSD (post-traumatic stress disorder) F43.10 [place] [address] 00295- 8173 Aug, Other dorsalgia M54.89 and Anorexia R63.0 [facility] [id number] [place] [address] 46426- 5267 Jul, [facility] [id number] [place] [address] 14962- 9144 Jul, Other dorsalgia M54.89 [facility] [id number] [place] [address] 02494- 9936 Jul, [facility] [id number] [place] [address] 54760 2546 Jul, [facility] [id number] [place] [address] 92988 2546 Jul, PTSD (post-traumatic stress disorder) F43.10 [facility] [id number] [place] [address] 37518- 0976 Jul, [facility] [id number] [place] [address] 71835- 4896 Jul, [facility] [id number] [place] [address] 03070- 4376 Jul, [facility] [id number] [place] [address] 14521- 7446 Jul, Anorexia R63.0 [facility] [id number] [place] [address] 24107- 7983 Jun, [facility] [id number] [place] [address] 75294- 6882 22 Jun, 2017 Vaginal discharge N89.8 ; Visit for gynecologic examination Z01.419 and Pelvic pressure in female R10.2 [facility] [id number] [place] [address] 33270- 0846 Jun, [facility] [id number] [place] [address] 95635 2546 Jun, Other dorsalgia M54.89 [facility] [address] 16833 2546 16 Jun, 2017 [facility] [id number] [place] [address] 04523 2546 Jun, [facility] [id number] [place] [address] 15614- 5866 Jun, [facility] [id number] [place] [address] 28379- 3064 May, Back pain M54.9 [facility] [id number] [place] [address] 35340- 2126 May, Anorexia R63.0 [facility] [id number] [place] [address] 04003- 8220 May, Other dorsalgia M54.89 [facility] [id number] [place] [address] 47519- 5814 May, [facility] [address] 09735- 9097 May, Bronchitis J40 [facility] [id number] [place] [address] 25339- 4899 May, Type 2 diabetes mellitus with diabetic autonomic (poly) neuropathy E11.43 ; intermediate current use of insulin Z79.4 ; Back pain M54.9 and Neuropathy G62.9 [facility] [id number] [place] [address] 74108- 2925 May, Left breast mass N63.20 [facility] [id number] [place] [address] 58181- 6180 May, [facility] [id number] [place] [address] 80664- 6400 Apr, Other dorsalgia M54.89 [facility] [id number] [place] [address] 16792- 8992 Apr, Anorexia R63.0 [facility] [id number] [place] [address] 58454- 8710 Apr, Anorexia R63.0 [facility] [id number] [place] [address] 47930- 7287 Apr, Mass of left breast N63.20 [facility] [id number] [place] [address] 84894- 1919 Apr, [facility] [id number] [place] [address] 37647- 2321 Apr, [facility] [id number] [place] [address] 03488- 1841 Apr, Diarrhea of presumed infectious origin A09 [facility] [id number] [place] [address] 50064- 3792 Apr, Encounter for immunization Z23 [facility] [id number] [place] [address] 30872- 1963 Apr, [facility] [id number] [place] [address] 56024- 7789 Mar, Other dorsalgia M54.89 [facility] [id number] [place] [address] 42310- 5036 Mar, [facility] [id number] [place] [address] 42023- 2973 Mar, [facility] [id number] [place] [address] 15272- 0349 Mar, Anorexia R63.0 [facility] [id number] [place] [address] 94322- 0152 Mar, [facility] [id number] [place] [address] 45478- 1038 Mar, Other dorsalgia M54.89 [facility] [id number] [place] [address] 79819- 5379 Mar, [facility] [id number] [place] [address] 54874- 1432 Mar, Encounter for immunization Z23 [facility] [id number] [place] [address] 22847- 6065 Feb, Anorexia R63.0 [facility] [id number] [place] [address] 18342- 7038 Feb, Diabetes E11.9 [facility] [id number] [place] [address] 93882- 3332 Feb, Back pain M54.9 and Diabetes E11.9 [facility] [id number] [place] [address] 23121- 4611 Feb, Diabetes E11.9 [facility] [address] 25869- 9835 Feb, Neuropathy G62.9 [facility] [address] 87048- 0842 Feb, Encounter for immunization Z23 ; Epigastric pain R10.13 ; Weight loss, abnormal R63.4 and Neuropathy G62.9 [facility] [address] [id number] Feb, [facility] [address] 20346- 9744 Feb, [facility] [address] 94324- 3287 Feb, Intractable vomiting with nausea, unspecified vomiting type R11.2 [facility] [id number] [place] [address] 37025 -7968 Feb, Chronic nausea R11.0 [facility] [id number] [place] [address] 59403- 9228 Feb, Other dorsalgia M54.89 [facility] [id number] [place] [address] 02150- 7830 Jan, [facility] [address] 73026- 9159 Jan, [facility] [address] 15402- 8096 Jan, [facility] [id number] [place] [address] 90874- 2165 Jan, [facility] [id number] [place] [address] 92359 2546 08 Jan, 2017 Asthma exacerbation J45.901 ; Bronchitis J40 and Neuropathy G62.9 [facility] [id number] [place] [address] 37655 2546 06 Jan, 2017 Anorexia R63.0 [facility] [id number] [place] [address] 22515 2546 Jan, Other dorsalgia M54.89 [facility] [id number] [place] [address] 15265- 5846 Dec, [facility] [id number] [place] [address] 37709- 1556 Dec, [facility] [id number] [place] [address] 30909- 5006 Dec, Anorexia R63.0 [facility] [id number] [place] [address] 65755- 3121 Dec, Primary insomnia F51.01 [facility] [id number] [place] [address] 90257 2548 Dec, Other dorsalgia M54.89 [facility] [id number] [place] [address] 91536 2546 Dec, [facility] [id number] [place] [address] 85729- 1880 Nov, [facility] [id number] [place] [address] 70103- 8793 Nov, [facility] [id number] [place] [address] 51986- 5998 Nov, [facility] [id number] [place] [address] 37189- 9963 Nov, History of colon polyps Z86.010 [facility] [id number] [place] [address] 18479- 7544 Nov, Weight loss R63.4 ; Nausea and vomiting, intractability of vomiting not specified, unspecified vomiting type R11.2 and Abnormal LFTs R79.89 [facility] [address] 90955- 7627 18 Nov, 2016 [facility] [id number] [place] [address] 56709- 2221 Nov, Neuropathy G62.9 and Pain in right knee M25.561 [facility] [address] 48339- 9195 12 Nov, 2016 Back pain M54.9 [facility] [address] 11228- 4310 10 Nov, 2016 [facility] [id number] [place] [address] 61479- 4391 Nov, Bronchitis J40 [facility] [address] 71388- 7437 Nov, Weight loss R63.4 [facility] [address] 54934- 2757 16 Oct, 2016 Back pain M54.9 [facility] [id number] [place] [address] 09177- 7634 16 Oct, 2016 [facility] [id number] [place] [address] 39343- 2512 Oct, Back pain M54.9 [facility] [id number] [place] [address] 47880- 9405 13 Oct, 2016 Type 2 diabetes mellitus without complications E11.9 and Bronchitis J40 [facility] [address] 04614- 4215 05 Oct, 2016 [facility] [id number] [place] [address] 28451- 5277 Oct, [facility] [id number] [place] [address] 24751- 3649 September, Gastroparesis K31.84 ; Type 2 diabetes mellitus with diabetic autonomic (poly)neuropathy E11.43 and Neuropathy G62.9 [facility] [address] 71275- 3137 September, Other dorsalgia M54.89 [facility] [id number] [place] [address] 33533- 6819 September, [facility] [address] 81307- 8415 September, [facility] [address] 24713- 6404 Aug, Gastroparesis K31.84 and Radicular leg pain M54.10 [place] [address] 62735- 6824 Aug, Anorexia R63.0 [place] [address] 89643- 8316 Aug, Bronchitis J40 [place] [id number] [place] [address] 72812- 1961 Aug, Back pain M54.9 [place] [id number] [place] [address] 00315- 3220 Aug, Routine gynecological examination Z01.419 ; Routine screening for STI (sexually transmitted infection) Z11.3 and Yeast infection of the vagina B37.3 [facility] [id number] [place] [address] 13172- 3902 Jul, Other dorsalgia M54.89 [facility] [id number] [place] [address] 21713- 1954 Jul, Diabetes E11.9 and Gastroparesis K31.84 [facility] [id number] [place] [address] 79475- 8332 Jun, [facility] [id number] [place] [address] 09308- 0745 24 Jun, 2016 Back pain M54.9 [facility] [id number] [place] [address] 77581 2546 14 Jun, 2016 Neuropathy G62.9 [facility] [address] [place] [address] [id number] 02 Jun, 2016 Encounter for dental examination Z01.20 [facility] [address] 64307- 1795 01 Jun, 2016 Gastroparesis 536.3 and Anorexia R63.0 [facility] [address] 30708- 6280 May, Other dorsalgia M54.89 [facility] [address] 39183- 4291 10 May, 2016 Periumbilical abdominal pain R10.33 ; Weight loss R63.4 and Gastroparesis K31.84 [facility] [id number] [place] [address] May, Back pain M54.9 [facility] [address] [address] Apr, Anorexia R63.0 [facility] [id number] [place] [address] 2546 Apr, Anorexia R63.0 [facility] [id number] [place] [id number] 2546 Apr, Back pain M54.9 [facility] [id number] [place] [address] 2546 Apr, Back pain M54.9 [facility] [id number] [place] [id number] 2546 Apr, [facility] [id number] [place] [address] 2546 Apr, Bronchitis J40 and Neuropathy G62.9 [facility] [id number] [place] [address]- [address] Apr, Neuropathy G62.9 [facility] [id number] [place] [address]- [address] Apr, [facility] [id number] [place] [address]- [address] Apr, Back pain M54.9 [facility] [address] [address] 2548 Mar, Type 2 diabetes mellitus with diabetic autonomic (poly) neuropathy E11.43 [facility] [id number] [place] [address]- [address] Mar, Type 2 diabetes mellitus without complications E11.9 [facility] [id number] [place] [address]- [address]164 Mar, Neuropathy G62.9 [facility] [id number] [place] [address] 53680- 1154 Mar, [facility] [id number] [place] [address] 57349- 0289 Mar, Breast cancer screening Z12.39 [facility] [id number] [place] [address] 97874- 9037 Mar, Other dorsalgia M54.89 [facility] [id number] [place] [address] 41928- 1741 Feb, [facility] [id number] [place] [address] 72420- 2541 Jan, Neuropathy G62.9 ; Type 2 diabetes mellitus with diabetic autonomic (poly)neuropathy E11.43 ; Uncomplicated asthma, unspecified asthma severity J45.909 and Encounter for immunization Z23 [facility] [id number] [place] [address] 63521- 2541 Jan, [facility] [id number] [place] [address] 71154- 5089 Jan, [facility] [address] [address] 2463 Dec, [facility] [id number] [place] [address] 22036- 2797 Dec, [facility] [id number] [place] [address] 98229- 9582 Nov, [facility] [id number] [place] [address] 61201- 5011 Nov, Back pain M54.9 [facility] [id number] [place] [address] 46884- 8272 Nov, Neuropathy G62.9 ; Mixed hyperlipidemia E78.2 ; Type 2 diabetes mellitus with diabetic autonomic (poly)neuropathy E11.43 and intermediate current use of insulin Z79.4 [facility] [id number] [place] [address] 79388- 2899 Oct, [facility] [id number] [place] [address] 52221- 5579 Oct, Other dorsalgia M54.89 [facility] [id number] [place] [address] 45811- 2496 September, Primary insomnia F51.01 [facility] [id number] [place] [address] 95133- 7704 September, [facility] [id number] [place] [address] 60730- 2358 Aug, Other dorsalgia M54.89 [facility] [address] [address] 37[address] Jul, [facility] [id number] [place] [address] 09477- 4746 Jul, Other dorsalgia M54.89 [facility] [address] [address] 5580 Jul, Diabetes E11.9 ; Back pain M54.9 ; Neuropathy G62.9 and Gastroparesis K31.84 [facility] [id number] [place] [address] 46235- 3106 Jun, [facility] [id number] [place] [address] 20969 2546 Jun, Other dorsalgia M54.89 [facility] [id number] [place] [address] 59451- 9704 May, [facility] [id number] [place] [address] 01958 254 May, Radicular leg pain M54.10 and Other dorsalgia M54.89 [facility] [id number] [place] [address] 74620- 1344 Apr, [facility] [id number] [place] [address] 11540- 3112 Mar, [facility] [id number] [place] [address] 69859- 1679 Mar, [facility] [id number] [place] [address] 51984- 8211 Mar, Radicular leg pain M54.10 [facility] [id number] [place] [address] 05830- 7615 Feb, [facility] [id number] [place] [address] 43486- 6278 Feb, [facility] [id number] [place] [address] 22883- 2544 Feb, [facility] [id number] [place] [address] 08277- 2569 Jan, [facility] [id number] [place] [address] 43696- 1484 Jan, IBS (irritable bowel syndrome) 564.1 [facility] [id number] [place] [address] 88251- 6358 Jan, [facility] [address] [place] [address] 29552- 8465 Jan, [facility] [id number] [place] [address] 70074- 9766 Jan, Diabetes mellitus without mention of complication, type II or unspecified type, not stated as uncontrolled 250.00 ; Gastroparesis 536.3 and Hypoacusis 389.9 [facility] [id number] [place] [address] 64870- 4004 Jan, [facility] [id number] [place] [address] 54246- 8237 Jan, [facility] [id number] [place] [address] 53409- 4994 Dec, [facility] [id number] [place] [address] 38989- 0438 Dec, [facility] [id number] [place] [address] 82126- 9502 Dec, [facility] [id number] [place] [address] 41964- 0716 Dec, Back pain 724.5 and Gastroparesis 536.3 [facility] [id number] [place] [address] 74750- 2467 Nov, [facility] [address] [place] [address] [id number] Nov, Dental examination V72.2 [facility] [address] [address]- 4802 Nov, [facility] [id number] [place] [address] 96682- 9251 Nov, [facility] [address] [place] [address] 78887- 0052 Nov, Depressive disorder, not elsewhere classified 311 and No condition on [place] II V71.09 [facility] [address] [address]- 1470 07 Nov, 2014 Diabetes 250.00 and Symptomatic menopausal or female climacteric states 627.2 [facility] [address], [place] [address]- 7727 24 Oct, 2014 [facility] [address], [place] [address]- 8145 15 Oct, 2014 Lumbar strain 847.2 [facility] [address] [address]- 0958 Oct, Gastroparesis 536.3 and Unspecified myalgia and myositis 729.1 [facility] [address] [address]- 7054 14 Aug, 2014 [facility] [address] [address]- 4557 Aug, [facility] [address] [address]- 4866 Jul, [facility] [address] [address]- 2718 Jul, [facility] [address] [address]- 6231 Jul, [facility] [address] [address]- 6176 Jul, [facility] [address] [address]- 7581 Jul, [facility] [address] [address]- 3327 18 Jun, 2014 [facility] [address] [address]- 3796 Jun, [facility] [address] [address]- 7906 Jun, [facility] [id number] [address]- 6994 May, [facility] [address] [id number] [place] [address]- 9483 May, [facility] [place] [facility] [address] [id number] [place] [address]- 0636 Mar, [facility] [address] [id number] [place] [address]- 8133 Mar, [facility] [place] [facility] [address] [id number] [place] [address]- 4149 Mar, [facility] [place] [facility] [address] [id number] [place] [address]- 5038 Mar, [facility] [place] [facility] [address] [id number] [place] [address]- 6295 Mar, [facility] [place] [facility] [address] [id number] [place] [address]- 5520 Mar, [facility] [address] [id number] [place] [address]- 8276 Feb, [facility] [place] [facility] [address] [id number] [place] [address]- 1076 Feb, [facility] [address] [id number] [place] [address]- 7578 Nov, [facility] [place] [facility] [address] [id number] [place] [address]- 4153 Nov, [facility] [place] [facility] [address] [id number] [place] [address]- 4800 Nov, [facility] [place] [facility] [address] [id number] [place] [address]- 2193 Oct, [facility] [place] [facility] [address] [id number] [place] [address] 2546 September, [facility] [place] [facility] [address] [id number] [place] [address]- 6325 Aug, [facility] [address] [id number] [place] [address]- 6159 15 Aug, 2012 [facility] [place] [facility] [address] [id number] [place] [address]- 3261 Aug, [facility] [place] [facility] [address] [id number] [place] [address]- 6222 Aug, [facility] [place] [facility] [address] [id number] [place] [address]- 9320 Aug, [facility] [place] [facility] [address] [id number] [place] [address]- 3063 Aug, [facility] [place] [facility] [address] [id number] [place] [address]- 2059 Aug, [facility] [place] [facility] [address] [id number] [place] [address]- 1056 Aug, [facility] [place] [facility] [address] [id number] [address]- 3520 Jul, [facility] [place] [facility] [address] [id number] [place] [address]- 2165 Jul, [facility] [place] [facility] [address] [id number] [address]- 4582 Jun, [facility] [place] [facility] [address] [id number], [place] [address]- 2028 Jun, [facility] [place] [facility] [address] [id number] [address]- 6552 Jun, [facility] [place] [facility] [address] [id number] [place] [address]- 6190 Jun, [facility] [place] [facility] [address] [id number] [place] [address]- 0707 Jun, [facility] [place] [facility] [address] [id number] [place] [address]- 8130 Jun, [facility] [place] [facility] [id number] [address]- 2656 Jun, [facility] [id number] [address]- 3463 May, [facility] [address] [address]- 3626 May, [facility] [id number] [address]- 9741 May, [facility] [address] [address]- 6708 May, [facility] [address] [address]- 2035 Mar, [facility] [address] [address]- 7629 Mar, [facility] [address] [address]- 6383 Jan, IMMUNIZATIONS No Known Immunizations SOCIAL HISTORY Never Assessed REASON FOR VISIT ED f/u call PLAN OF CARE VITAL SIGNS MEDICATIONS Medication Instructions Dosage Frequency Start Date End Date Duration Status Butorphanol Tartrate 10 MG/ML Nasally 2 times a day, prn migraine 1 spray Apr, Active RESULTS No Results PROCEDURES No Known [...] vomitting-[facility] 03/05/17 Hospitalization History hospital stay at [facility] for stomach issues 2016
[2018-06-01 17:28] LABS: BASOPHILS % (AUTO) 0 % (0-10); EOSINOPHILS # (AUTO) 0.4 10^3/uL (0.0-0.3); EOSINOPHILS % (AUTO) 3 % (0-10); HEMATOCRIT 39 % (35-52); HEMOGLOBIN 12.4 G/DL (11.5-16.0); LYMPHOCYTES # (AUTO) 4.3 X 10^3 (1.0-4.0); LYMPHOCYTES % (AUTO) 36 % (12-44); MEAN CORPUSCULAR HEMOGLOBIN 28 PG (25-34); MEAN CORPUSCULAR HGB CONC 32 G/DL (32-36); MEAN CORPUSCULAR VOLUME 86 FL (80-99); MEAN PLATELET VOLUME 10.9 FL (7.4-10.4); MONOCYTES % (AUTO) 8 % (0-12); NEUTROPHILS # (AUTO) 6.4 X 10^3 (1.8-7.8); NEUTROPHILS % (AUTO) 53 % (42-75); PLATELET COUNT 356 10^3/uL (130-400); RED BLOOD COUNT 4.51 10^6/uL (4.35-5.85); RED CELL DISTRIBUTION WIDTH 14.2 % (10.0-14.5); WHITE BLOOD COUNT 12.1 10^3/uL (4.3-11.0)
[2018-06-01 17:46] LABS: ALANINE AMINOTRANSFERASE 11 U/L (0-55); ALBUMIN 3.9 GM/DL (3.2-4.5); ALKALINE PHOSPHATASE 122 U/L (40-136); BILIRUBIN,TOTAL 0.2 MG/DL (0.1-1.0); BUN/CREATININE RATIO 12; CALCIUM 9.6 MG/DL (8.5-10.1); CARBON DIOXIDE 21 MMOL/L (21-32); CHLORIDE 111 MMOL/L (98-107); CREATININE SERUM 0.86 MG/DL (0.60-1.30); GFR ESTIMATED > 60; POTASSIUM 2.9 MMOL/L (3.6-5.0); SALICYLATE < 5.0 MG/DL (5.0-20.0); SODIUM 144 MMOL/L (135-145); TOTAL PROTEIN 7.7 GM/DL (6.4-8.2)
[2018-06-01 17:47] LABS: ACETAMINOPHEN < 10 UG/ML (10-30)
[2018-06-01] MEDS ORDERED: DEXTROSE 50% 50 ML (IMS) SYR ONE (17:47)
[2018-06-01 17:48] LABS: BILIRUBIN,URINE NEGATIVE (NEGATIVE); CLARITY,URINE CLEAR; COLOR,URINE YELLOW; GLUCOSE, URINE (UA) NEGATIVE (NEGATIVE); KETONES,URINE NEGATIVE (NEGATIVE); LEUKOCYTE ESTERASE ,URINE NEGATIVE (NEGATIVE); NITRITE,URINE NEGATIVE (NEGATIVE); PH,URINE 6 (5-9); PROTEIN,URINE 3+ (NEGATIVE); UROBILINOGEN,URINE NORMAL (NORMAL)
[2018-06-01 17:48] LABS: GLUCOSE 44 MG/DL (70-105)
[2018-06-01 17:58] LABS: AMPHETAMINE SCREEN, URINE NEGATIVE (NEGATIVE); BARBITURATE SCREEN URINE NEGATIVE (NEGATIVE); BENZODIAZEPINES SCREEN URINE NEGATIVE (NEGATIVE); CANNABINOID SCREEN, URINE POSITIVE (NEGATIVE); COCAINE SCREEN URINE NEGATIVE (NEGATIVE); HCG,QUALITATIVE URINE NEGATIVE (NEGATIVE); METHADONE STAT NEGATIVE (NEGATIVE); METHAMPHETAMINE SCREEN URINE S NEGATIVE (NEGATIVE); OPIATE SCREEN URINE NEGATIVE (NEGATIVE); OXYCODONE STAT NEGATIVE (NEGATIVE); PROPOXYPHENE STAT NEGATIVE (NEGATIVE); TRICYCLIC ANTIDEPRESSANTS SCRE NEGATIVE (NEGATIVE)
[2018-06-01] MEDS ORDERED: DEXTROSE 50% 50 ML (IMS) SYR IV ONE (18:00)
[2018-06-01 18:08] LABS: AMORPHOUS SEDIMENT,UR MOD AMOR URATES /LPF; BACTERIA,URINE TRACE /HPF; RBC,URINE 0-2 /HPF; WBC,URINE RARE /HPF
--- NOTE | 2018-06-01 18:26 | Diagnostic Imaging Report ---
PROCEDURE: CT head without contrast. TECHNIQUE: Multiple contiguous axial images were obtained through the brain without the use of intravenous contrast. INDICATION: Altered mental status, confusion. COMPARISON: None. FINDINGS: The ventricles and cortical sulci appear age appropriate. There is an area of hypoattenuation in the left periventricular white matter. There is a punctate focus which is hyperdense in the right basal ganglia, likely senescent calcification. No acute intracranial hemorrhage is seen. There is no CT evidence of acute territorial ischemia. There is no midline shift or mass effect. The calvarium is intact. The visible paranasal sinuses are clear. IMPRESSION: 1. No acute intracranial hemorrhage or CT evidence of acute territorial ischemia. 2. Focal area of hypoattenuation in the left periventricular white matter, may represent chronic microvascular disease or possibly prominent perivascular space. Dictated by: Dictated on workstation # [id number]
--- NOTE | 2018-06-01 18:27 | Diagnostic Imaging Report ---
PATIENT HISTORY: Confusion, altered mental status. TECHNIQUE: Single frontal view of the chest. COMPARISON: 08/11/2017. FINDINGS: There are mildly prominent interstitial markings which are chronic and stable since the prior study, notable at the right lung base. No new consolidation is seen. There is no pleural effusion or pneumothorax. The cardiac silhouette appears mildly more prominent, likely due to AP technique versus the prior exam. No acute osseous abnormality is seen. IMPRESSION: Stable chronic findings in the lungs with no focal consolidation seen. Dictated by: Dictated on workstation # [id number]
[2018-06-01] MEDS ORDERED: POTASSIUM CL 10MEQ/50ML IVPB 50 ML IV ONE (18:45)
[2018-06-01] MEDS ORDERED: POTASSIUM CHLORIDE INJ 40 MEQ in 1/2 NS IV SOLUTION 1,000 ML IV SCH (19:15)
--- OUTSIDE RECORDS SUMMARY | 2018-06-01 19:28 | XMS REPORT | Clinical Summary ---
Author Author [facility] Organization [facility] Address Unknown Phone Unavailable Care Team Providers Care Steam Fitter Helper Name Role Phone Aamir Magdaleno MD Unavailable Greyson Powell RN Unavailable Unavailable Ella Carrion RN Unavailable Unavailable Misa Alvarez MD Unavailable Smitha Milian RN Unavailable Unavailable Tito Limon MD Unavailable John Raymond MD Unavailable Chioma Jacques RN Unavailable Unavailable Megan Bryan RN Unavailable Unavailable Myesha Orona RHEOSTAT ASSEMBLER Unavailable Arvin Aguilar RN Unavailable Unavailable Manasa Savage RN Unavailable Unavailable Andrea Durant RHEOSTAT ASSEMBLER Unavailable Jack Davila RN Unavailable Unavailable Vanessa Perez MD Unavailable Radha Malin MD Unavailable Chuck Frias MD PCP Source Comments Some departments are not documenting in the electronic medical record. If you do not see the information that you expected, contact Release of Information in the Health Information Management department at [phone] for further assistance in locating additional records.[facility] [...] Overview: Added automatically from request for surgery [id number] Superior mesenteric artery syndrome 03/17/2009 Anemia 03/17/2009 [...] Taken Vital Sign Reading 04/15/2018 9:09 AM BAG MACHINE SET UP OPERATOR Blood Pressure 104/59 04/15/2018 9:09 AM BAG MACHINE SET UP OPERATOR Pulse 95 12/10/2017 3:27 PM CDT Temperature 36.9 C (98.4 F) 07/29/2017 11:22 AM BAG MACHINE SET UP OPERATOR Respiratory Rate 18 12/10/2017 3:27 PM CDT Oxygen Saturation 100% - Inhaled Oxygen - Concentration 04/15/2018 9:09 AM BAG MACHINE SET UP OPERATOR Weight 50.3 kg (111 lb) 04/15/2018 9:09 AM BAG MACHINE SET UP OPERATOR Height 157.5 cm (5' 2") 04/15/2018 9:09 AM BAG MACHINE SET UP OPERATOR Body Mass Index 20.3 Plan of Treatment Health Maintenance Due Date Last Done Comments PHYSICAL (COMPREHENSIVE) 1978 EXAM DTAP/TDAP VACCINES (1 - 1989 Tdap) CERVICAL CANCER SCREENING 2001 BREAST CANCER SCREENING 2011 INFLUENZA VACCINE 12/24/2017 03/04/2009, 04/20/2008 HIV SCREENING Completed 03/03/2009 Procedures Comments Procedure Name Priority Date/Time Associated Diagnosis CT NECK EXTERNAL IMAGING Routine 05/04/2018 Diagnosis unknown 3:05 PM BAG MACHINE SET UP OPERATOR CT NECK W/CONTRAST Routine 05/04/2018 Epiglottic cyst from Last 3 Months Results * CT NECK EXTERNAL IMAGING (05/04/2018 3:05 PM BAG MACHINE SET UP OPERATOR) Narrative Performed At This order has been auto finalized and does not contain a result. * CT NECK W/CONTRAST (05/04/2018) Narrative Performed At Performing Organization Address City/State/[place] Phone Number [facility] from Last 3 Months Insurance Payer Benefit Subscriber ID Type Phone Address Plan / Group MEDICARE MEDICARE xxxxxxxxxx Medicare PART A AND B [facility] MEDICAID [facility] xxxxxxxxxxx Medicaid [place] Advance Directives Patient has advance care planning documents, and code status on file. For more information, please contact: [facility] [address] [place] [address] Date Inactivated Comments Code Status Date Activated 03/17/2009 8:26 PM Full Code 03/02/2009 5:47 PM 09/17/2008 7:51 PM Full Code 09/15/2008 11:04 PM
--- OUTSIDE RECORDS SUMMARY | 2018-06-01 19:28 | XMS REPORT | Encounter Summary ---
Author Author [facility] Organization [facility] Address Unknown Phone Unavailable Care Team Providers Care Stereo Plotter Operator Name Role Phone Aamir Magdaleno MD Unavailable Greyson Powell RN Unavailable Unavailable Ella Carrion RN Unavailable Unavailable Misa Alvarez MD Unavailable Smitha Milian RN Unavailable Unavailable Tito Limon MD Unavailable John Raymond MD Unavailable Chioma Jacques RN Unavailable Unavailable Megan Bryan RN Unavailable Unavailable Myesha Orona FORESTER AIDE Unavailable Arvin Aguilar RN Unavailable Unavailable Manasa Savage RN Unavailable Unavailable Andrea Durant FORESTER AIDE Unavailable Jack Davila RN Unavailable Unavailable Vanessa Perez MD Unavailable Radha Malin MD Unavailable Chuck Frias MD PCP Reason for Referral * Radiology Services (Routine) Referred By Contact Referred To Contact Status Reason Specialty Diagnoses / Procedures Chuck Montague Jr., MD [address] [facility] [address] [place] [address] New Request Radiology Diagnoses Epiglottic cyst P rocedures CT NECK W/CONTRAST Encounter Details Care Team Description Date Type Department Cheri Biswas LPN 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 Orders Only [facility] [place], [address] [place] [address] Social History Date Tobacco Use Types Packs/Day [...]
--- OUTSIDE RECORDS SUMMARY | 2018-06-01 19:29 | XMS REPORT | Encounter Summary ---
Author Author [facility] Organization [facility] Address Unknown Phone Unavailable Care Team Providers Care Ice Scraper Name Role Phone Aamir Magdaleno MD Unavailable Greyson Powell RN Unavailable Unavailable Ella Carrion RN Unavailable Unavailable Misa Alvarez MD Unavailable Smitha Milian RN Unavailable Unavailable Tito Limon MD Unavailable John Raymond MD Unavailable Chioma Jacques RN Unavailable Unavailable Megan Bryan RN Unavailable Unavailable Myesha Orona DATABASE MARKETING ANALYST Unavailable Arvin Aguilar RN Unavailable Unavailable Manasa Savage RN Unavailable Unavailable Andrea Durant DATABASE MARKETING ANALYST Unavailable Jack Davila RN Unavailable Unavailable Vanessa Perez MD Unavailable Radha Malin MD Unavailable Chuck Frias MD PCP Reason for Referral * Radiology Services (Routine) Referred By Contact Referred To Contact Status Reason Specialty Diagnoses / Procedures Chuck Montague Jr., MD [address] [place] [address] New Request Radiology Diagnoses Epiglottic cyst P rocedures CT NECK W/CONTRAST Reason for Visit * Reason Comments Throat Problem Encounter Details Care Team Description Date Type Department Chuck Montague Jr., MD [address] [place] [address] Epiglottic cyst; Neck pain; Calcification of cartilage 04/15/2018 Office Visit [facility] [place], [address] [place] [address] Social History Date Tobacco Use Types Packs/Day [...] Taken Vital Sign Reading 04/15/2018 9:09 AM AUTOMATIC BEADING LATHE OPERATOR Blood Pressure 104/59 04/15/2018 9:09 AM AUTOMATIC BEADING LATHE OPERATOR Pulse 95 - Temperature - - Respiratory Rate - - Oxygen Saturation - - Inhaled Oxygen - Concentration 04/15/2018 9:09 AM AUTOMATIC BEADING LATHE OPERATOR Weight 50.3 kg (111 lb) 04/15/2018 9:09 AM AUTOMATIC BEADING LATHE OPERATOR Height 157.5 cm (5' 2") 04/15/2018 9:09 AM AUTOMATIC BEADING LATHE OPERATOR Body Mass Index 20.3 in this encounter Progress Notes * Chuck Montague Jr., MD - 04/15/2018 9:20 AM AUTOMATIC BEADING LATHE OPERATOR HISTORY OF PRESENT ILLNESS: Sunitha Feldman is [...] The floor of mouth is without edema. Wilkinson's ducts and Stensen's ducts are patent with [...] of any of the laryngeal findings today. MATIC BEADING LATHE OPERATOR in this encounter Plan of Treatment Not on fileas of this encounter Results * CT NECK W/CONTRAST (05/04/2018) Narrative Performed At Performing Organization Address City/State/Zipcode Phone Number [facility] in this encounter Visit Diagnoses Diagnosis Epiglottic cyst Other diseases of larynx Neck pain Cervicalgia Calcification of cartilage Other disorders of bone and cartilage in this encounter
--- OUTSIDE RECORDS SUMMARY | 2018-06-01 19:29 | XMS REPORT | Encounter Summary ---
Author Author [facility] Organization [facility] Address Unknown Phone Unavailable Care Team Providers Care Staff Physical Therapist Name Role Phone Aamir Magdaleno MD Unavailable Greyson Powell RN Unavailable Unavailable Ella Carrion RN Unavailable Unavailable Misa Alvarez MD Unavailable Smitha Milian RN Unavailable Unavailable Tito Limon MD Unavailable John Raymond MD Unavailable Chioma Jacques RN Unavailable Unavailable Megan Bryan RN Unavailable Unavailable Myesha Orona SUPERINTENDENT [employer] Unavailable Arvin Aguilar RN Unavailable Unavailable Manasa Savage RN Unavailable Unavailable Andrea Durant SUPERINTENDENT [employer] Unavailable Jack Davila RN Unavailable Unavailable Vanessa Perez MD Unavailable Radha Malin MD Unavailable Chuck Frias MD PCP Encounter Details Care Team Description Date Type Department 05/04/2018 [facility]iology [facility] [address]nd fl [address] [place] [address] Social History Date Tobacco Use [...] IMAGING Routine 05/04/2018 Diagnosis unknown 3:05 PM HARP MAKER in this encounter Results * CT NECK EXTERNAL IMAGING (05/04/2018 3:05 PM HARP MAKER) Narrative Performed At This order has been auto finalized and does not contain a result. in this encounter Visit Diagnoses Diagnosis Diagnosis unknown Other unknown and unspecified cause of morbidity or mortality in this encounter
--- NOTE | 2018-06-01 20:20 | NUR ---
JAZMIN YOU admitted to room 413-1, with an admitting diagnosis of hypokalemia and hypoglycemia, on 06/01/18 from the ER via hospital bed, accompanied by an ER staff member. JAZMIN YOU introduced to surroundings, call light, bed controls, phone, TV, temperature control, lights, meal times, smoking policy, visitor policy, side rail policy, bathrooms and showers. Patient Rights given to patient in the handbook. JAZMIN YOU verbalizes understanding that [facility] is not responsible for the loss or damage to any personal effects or valuables that are kept in the patients posession during their hospitalization. Plan of care is discussed and there are no questions at this time.
[2018-06-01 20:25] VITALS: BP 127/73
[2018-06-01] MEDS ORDERED: ACETAMINOPHEN 500 MG TAB (TYLENOL) PO PRN (20:30)
[2018-06-01] MEDS: POTASSIUM CHLORIDE INJ 40 MEQ in 1/2 NS IV SOLUTION 1,000 ML IV SCH (20:48)
[2018-06-01] MEDS: RIVAROXABAN 20 MG TABLET (XARELTO) PO SCH (21:20)
[2018-06-01] MEDS: PREGABALIN 75 MG (LYRICA) CAP PO SCH (21:20)
[2018-06-01] MEDS: ONDANSETRON 4 MG/2 ML (SDV) Z0FRAN IV PRN (22:09)
[2018-06-01] MEDS: oxyCODONE/APAP 10/325MG (PERCOCET 10) TABLET PO PRN (23:06)
[2018-06-02] VITALS (7 sets, daily range): BP systolic 104–125; BP diastolic 62–90
[2018-06-02] MEDS: POTASSIUM CHLORIDE INJ 40 MEQ in 1/2 NS IV SOLUTION 1,000 ML IV SCH ×3 (03:20→20:16)
[2018-06-02 05:55] LABS: BASOPHILS % (AUTO) 0 % (0-10); EOSINOPHILS # (AUTO) 0.2 10^3/uL (0.0-0.3); EOSINOPHILS % (AUTO) 3 % (0-10); HEMATOCRIT 36 % (35-52); HEMOGLOBIN 11.3 G/DL (11.5-16.0); LYMPHOCYTES # (AUTO) 3.3 X 10^3 (1.0-4.0); LYMPHOCYTES % (AUTO) 34 % (12-44); MEAN CORPUSCULAR HEMOGLOBIN 27 PG (25-34); MEAN CORPUSCULAR HGB CONC 31 G/DL (32-36); MEAN CORPUSCULAR VOLUME 87 FL (80-99); MEAN PLATELET VOLUME 11.2 FL (7.4-10.4); MONOCYTES # (AUTO) 0.7 X 10^3 (0.0-1.0); MONOCYTES % (AUTO) 8 % (0-12); NEUTROPHILS # (AUTO) 5.4 X 10^3 (1.8-7.8); NEUTROPHILS % (AUTO) 56 % (42-75); PLATELET COUNT 308 10^3/uL (130-400); RED BLOOD COUNT 4.14 10^6/uL (4.35-5.85); RED CELL DISTRIBUTION WIDTH 14.3 % (10.0-14.5); WHITE BLOOD COUNT 9.7 10^3/uL (4.3-11.0)
[2018-06-02 06:11] LABS: BUN/CREATININE RATIO 9; CALCIUM 8.5 MG/DL (8.5-10.1); CARBON DIOXIDE 20 MMOL/L (21-32); CHLORIDE 114 MMOL/L (98-107); CREATININE SERUM 0.78 MG/DL (0.60-1.30); GFR ESTIMATED > 60; GLUCOSE 84 MG/DL (70-105); POTASSIUM 4.2 MMOL/L (3.6-5.0); SODIUM 143 MMOL/L (135-145)
[2018-06-02] MEDS: ONDANSETRON 4 MG/2 ML (SDV) Z0FRAN IV PRN ×3 (09:14→19:07)
[2018-06-02] MEDS: PREGABALIN 75 MG (LYRICA) CAP PO SCH ×2 (09:14→20:17)
[2018-06-02] MEDS: oxyCODONE/APAP 10/325MG (PERCOCET 10) TABLET PO PRN ×2 (09:56→19:08)
[2018-06-02] MEDS ORDERED: DULO60CA58 PO (11:13)
[2018-06-02] MEDS ORDERED: INSU100I23 SQ (11:13)
[2018-06-02] MEDS ORDERED: MONT10TA24 PO (11:13)
[2018-06-02] MEDS ORDERED: INSU100I10 SQ (11:13)
[2018-06-02] MEDS ORDERED: GABA600T2 PO (11:13)
[2018-06-02] MEDS ORDERED: ZOLP10TA5 PO (11:13)
[2018-06-02] MEDS ORDERED: BUPR100T8 PO (11:13)
[2018-06-02] MEDS ORDERED: DRON5CAP14 PO (11:13)
[2018-06-02] MEDS ORDERED: DULO30CA48 PO (11:13)
[2018-06-02] MEDS ORDERED: PANTOPRAZOLE 40 MG (PROTONIX) TAB PO NR (11:15)
[2018-06-02] MEDS ORDERED: RIZA5TAB28 PO (11:24)
[2018-06-02] MEDS ORDERED: FLUT12AE4 INH (11:24)
[2018-06-02] MEDS ORDERED: DICY20TA10 PO (11:24)
[2018-06-02] MEDS ORDERED: BTR10SP2 NS (11:28)
--- NOTE | 2018-06-02 11:29 | NUR ---
WENT OVER THE EXT MED HX WITH THE PATIENT AND SHE VERIFIED HOW SHE TAKES ALL OF HER MEDICATIONS. SHE ALSO VERIFIED HER OTC MEDS.
--- NOTE | 2018-06-02 12:42 | NUR ---
PCT states that pt turned her IV completely off, bc it was beeping. Went in to pt room, turned IV back on, instructed pt to not turn IV machine off as we would have to stick her again to restart. To turn call lt on if beeping. Family member in room, & reiterated this to pt.
[2018-06-02] MEDS ORDERED: RT-ALBUTEROL SULF 2.5 MG/3 ML PRE-MIX VIAL IH PRN (15:00)
[2018-06-02] MEDS ORDERED: NON-FORMULARY MEDICATION 1 EA EA (Polyethylene Glycol 3350 17 GM) PO PRN (15:00)
[2018-06-02] MEDS ORDERED: NON-FORMULARY MEDICATION 1 EA EA (Acetaminophen 1,000 MG) PO PRN (15:00)
[2018-06-02] MEDS ORDERED: POLYETHYLENE GLYCOL 17 GM (MIRALAX) PACK PO PRN (15:15)
[2018-06-02] MEDS ORDERED: ACETAMINOPHEN 500 MG TAB (TYLENOL) PO PRN (15:30)
--- NOTE | 2018-06-02 15:59 | History & Physicial (CHS) ---
HPI History of Present Illness: 47 yo female brought to ER due to altered mental status. She does not really recall what happened. She was found to have low blood sugar and improved with glucose administration. She states she does not necessarily get symptoms when her blood sugar is getting low. She takes long and short acting insulin, and does not always eat 3 meals per day. She does say she carries life savers in her purse in case her blood sugar gets low. She does state she doesn't take her short acting insulin if she doesn't eat. She states she has had abdominal pain that is fairly significant for a month or more. She denies constipation or diarrhea, but has been nauseated. She has not seen blood in her stool. Source: patient Date seen by provider: Jun 02, 2018 Time Seen by Provider: 10:55 Attending Physician Oly Piper MD PCP Chuck Higgins MD Consult Date of Admission Jun 01, 2018 at 18:50 Home Medications Home Medications Reviewed patient Home Medication Reconciliation performed by pharmacy medication reconciliations mix technician and/or nursing. Patients Allergies have been reviewed. Allergies Coded Allergies: aspirin (Verified Allergy, Unknown, 10/25/13) Uncoded Allergies: NSAIDS (Allergy, Unknown, 10/25/13) COUMADIN (Adverse Reaction, Unknown, 10/25/13) VOMITS BLOOD BUP-Xffziz-Vsdomp Hx Patient Social History Alcohol Use: Denies Use Recreational Drug Use: No Smoking Status: Former Smoker Former smoker/When Quit: Oct 24, 2016 Type Used: Cigarettes Recent Foreign Travel: No Contact w/other who traveled: No Recent Hopitalizations: No Recent Infectious Disease Expo: No Physical Abuse Screen: No Sexual Abuse: No Immunizations Up To Date Tetanus Booster (TDap): Less than 5yrs Date of Pneumonia Vaccine: Jul 07, 2014 Date of Influenza Vaccine: Feb 23, 2015 Past Medical History PMHx: IDDM h/o PE after surgery 2014 Migraines PSurgHx: Umbilical hernia repair Hysterectomy Family Medical History Significant Family History: Heart Disease, Diabetes, Hypertension Family History: Cardiovascular disease 19 MOTHER (CHF) G8 SISTER (CHF) Cataracts 19 MOTHER Diabetes mellitus 19 MOTHER G8 BROTHER G8 BROTHER G8 SISTER Hypertension 19 MOTHER G8 SISTER Review of Systems (CHC) Constitutional: No fever EENTM: No nose congestion, No throat pain Respiratory: No cough Cardiovascular: No chest pain Gastrointestinal: see HPI, abdominal pain Genitourinary: no symptoms reported Musculoskeletal: joint pain Skin: No rash Psychiatric/Neurological: No Symptoms Reported Reviewed Test Results Reviewed Test Results Lab Laboratory Tests Test 06/01/18 17:15 06/01/18 17:25 06/01/18 17:42 06/01/18 18:36 Range/Units White Blood Count 12.1 H 4.3-11.0 10^3/uL Red Blood Count 4.51 4.35-5.85 10^6/uL Hemoglobin 12.4 11.5-16.0 G/DL Hematocrit 39 35-52 % Mean Corpuscular Volume 86 80-99 FL Mean Corpuscular Hemoglobin 28 25-34 PG Mean Corpuscular Hemoglobin Concent 32 32-36 G/DL Red Cell Distribution Width 14.2 10.0-14.5 % Platelet Count 356 130-400 10^3/uL Mean Platelet Volume 10.9 H 7.4-10.4 FL Neutrophils (%) (Auto) 53 42-75 % Lymphocytes (%) (Auto) 36 12-44 % Monocytes (%) (Auto) 8 0-12 % Eosinophils (%) (Auto) 3 0-10 % Basophils (%) (Auto) 0 0-10 % Neutrophils # (Auto) 6.4 1.8-7.8 X 10^3 Lymphocytes # (Auto) 4.3 H 1.0-4.0 X 10^3 Monocytes # (Auto) 1.0 0.0-1.0 X 10^3 Eosinophils # (Auto) 0.4 H 0.0-0.3 10^3/uL Basophils # (Auto) 0.0 0.0-0.1 10^3/uL Sodium Level 144 135-145 MMOL/L Potassium Level 2.9 L 3.6-5.0 MMOL/L Chloride Level 111 H 98-107 MMOL/L Carbon Dioxide Level 21 21-32 MMOL/L Anion Gap 12 5-14 MMOL/L Blood Urea Nitrogen 10 7-18 MG/DL Creatinine 0.86 0.60-1.30 MG/DL Estimat Glomerular Filtration Rate > 60 BUN/Creatinine Ratio 12 Glucose Level 44 *L 70-105 MG/DL Calcium Level 9.6 8.5-10.1 MG/DL Corrected Calcium 9.7 8.5-10.1 MG/DL Total Bilirubin 0.2 0.1-1.0 MG/DL Aspartate Amino Transf (AST/SGOT) 18 5-34 U/L Alanine Aminotransferase (ALT/SGPT) 11 0-55 U/L Alkaline Phosphatase 122 40-136 U/L Total Protein 7.7 6.4-8.2 GM/DL Albumin 3.9 3.2-4.5 GM/DL Thyroid Stimulating Hormone (TSH) 0.19 L 0.35-4.94 UIU/ML Salicylates Level < 5.0 L 5.0-20.0 MG/DL Acetaminophen Level < 10 L 10-30 UG/ML Serum Alcohol < 10 <10 MG/DL Urine Color YELLOW Urine Clarity CLEAR Urine pH 6 5-9 Urine Specific [place] 1.015 L 1.016-1.022 Urine Protein 3+ H NEGATIVE Urine Glucose (UA) NEGATIVE NEGATIVE Urine Ketones NEGATIVE NEGATIVE Urine Nitrite NEGATIVE NEGATIVE Urine Bilirubin NEGATIVE NEGATIVE Urine Urobilinogen NORMAL NORMAL MG/DL Urine Leukocyte Esterase NEGATIVE NEGATIVE Urine RBC (Auto) 1+ H NEGATIVE Urine RBC 0-2 /HPF Urine WBC RARE /HPF Urine Crystals PRESENT H /LPF Urine Amorphous Sediment MOD JOVI URATES H /LPF Urine Bacteria TRACE /HPF Urine Casts NONE /LPF Urine Mucus NEGATIVE /LPF Urine Culture Indicated NO Urine Test NEGATIVE NEGATIVE Urine Opiates Screen NEGATIVE NEGATIVE Urine Oxycodone Screen NEGATIVE NEGATIVE Urine Methadone Screen NEGATIVE NEGATIVE Urine Propoxyphene Screen NEGATIVE NEGATIVE Urine Barbiturates Screen NEGATIVE NEGATIVE Ur Tricyclic Antidepressants Screen NEGATIVE NEGATIVE Urine Phencyclidine Screen NEGATIVE NEGATIVE Urine Amphetamines Screen NEGATIVE NEGATIVE Urine Methamphetamines Screen NEGATIVE NEGATIVE Urine Benzodiazepines Screen NEGATIVE NEGATIVE Urine Cocaine Screen NEGATIVE NEGATIVE Urine Cannabinoids Screen POSITIVE H NEGATIVE Glucometer 80 187 H 70-110 MG/DL Test 06/01/18 20:56 06/01/18 22:48 06/02/18 01:22 06/02/18 03:14 Range/Units Glucometer 119 H 89 81 55 *L 70-110 MG/DL Test 06/02/18 04:18 06/02/18 05:10 06/02/18 07:30 06/02/18 09:10 Range/Units Glucometer 139 H 64 L 167 H 70-110 MG/DL White Blood Count 9.7 4.3-11.0 10^3/uL Red Blood Count 4.14 L 4.35-5.85 10^6/uL Hemoglobin 11.3 L 11.5-16.0 G/DL Hematocrit 36 35-52 % Mean Corpuscular Volume 87 80-99 FL Mean Corpuscular Hemoglobin 27 25-34 PG Mean Corpuscular Hemoglobin Concent 31 L 32-36 G/DL Red Cell Distribution Width 14.3 10.0-14.5 % Platelet Count 308 130-400 10^3/uL Mean Platelet Volume 11.2 H 7.4-10.4 FL Neutrophils (%) (Auto) 56 42-75 % Lymphocytes (%) (Auto) 34 12-44 % Monocytes (%) (Auto) 8 0-12 % Eosinophils (%) (Auto) 3 0-10 % Basophils (%) (Auto) 0 0-10 % Neutrophils # (Auto) 5.4 1.8-7.8 X 10^3 Lymphocytes # (Auto) 3.3 1.0-4.0 X 10^3 Monocytes # (Auto) 0.7 0.0-1.0 X 10^3 Eosinophils # (Auto) 0.2 0.0-0.3 10^3/uL Basophils # (Auto) 0.0 0.0-0.1 10^3/uL Sodium Level 143 135-145 MMOL/L Potassium Level 4.2 3.6-5.0 MMOL/L Chloride Level 114 H 98-107 MMOL/L Carbon Dioxide Level 20 L 21-32 MMOL/L Anion Gap 9 5-14 MMOL/L Blood Urea Nitrogen 7 7-18 MG/DL Creatinine 0.78 0.60-1.30 MG/DL Estimat Glomerular Filtration Rate > 60 BUN/Creatinine Ratio 9 Glucose Level 84 70-105 MG/DL Calcium Level 8.5 8.5-10.1 MG/DL Test 06/02/18 11:50 Range/Units Glucometer 137 H 70-110 MG/DL Radiology CT head 06/01/18 IMPRESSION: 1. No acute intracranial hemorrhage or CT evidence of acute territorial ischemia. 2. Focal area of hypoattenuation in the left periventricular white matter, may represent chronic microvascular disease or possibly prominent perivascular space. CXR 06/01/18: IMPRESSION: Stable chronic findings in the lungs with no focal consolidation seen. Physical Exam-(CHC) Physical Exam Vital Signs VS - Last 72 Hours, by Label 1/12/1106/01/18 06/01/18 06/02/18 16:50 20:05 20:25 00:00 Temp 93.3 99.3 97.8 Pulse 88 99 101 96 Resp 20 16 19 18 B/P (MAP) 151/88 (109) 118/76 (90) 127/73 (91) 115/73 (87) Pulse Ox 100 98 98 99 O2 Delivery Room Air Room Air Room Air Room Air 06/02/18 06/02/18 06/02/18 04:00 08:00 12:00 Temp 97.7 98.9 99.1 Pulse 91 94 93 Resp 18 20 20 B/P (MAP) 112/65 (81) 122/78 (93) 125/90 (102) Pulse Ox 98 96 98 O2 Delivery Room Air Room Air Room Air Capillary Refill : Less Than 3 Seconds General Appearance: no apparent distress Respiratory: lungs clear, normal breath sounds Cardiovascular: regular rate, rhythm, no murmur Gastrointestinal: normal bowel sounds, soft, distended, guarding (voluntary), tenderness (periumbilical) Extremities: no pedal edema Neurologic/Psychiatric: alert, normal mood/affect Skin: normal color, warm/dry Assessment/Plan Assessment/Plan Admission Status: Observation (1) Altered mental status Status: Acute Assessment & Plan: Resolved, suspect secondary to hypoglycemia. No evidence of infection and CT head and CXR with no acute findings. (2) Hypoglycemia associated with type 2 diabetes mellitus Status: Acute Assessment & Plan: Unclear fully etiology, but sounds like she has had poor intake. Will hold insulin and monitor blood sugars and adjust dosing as needed. Discussed the importance of recognizing signs of hypoglycemia early and having not only quick sugar source but something that will last to avoid repeat lows. (3) Abdominal pain Status: Acute Assessment & Plan: Apparently somewhat chronic on review of chart, but she does have rather marked pain today and notes nausea and poor appetite which is likely contributing to the hypoglycemia. Will check CT abdomen and monitor intake. (4) IDDM (insulin dependent diabetes mellitus) Status: Chronic Assessment & Plan: Holding home insulin for now. (5) DVT prophylaxis Status: Acute Assessment & Plan: With history of PE already on rivaroxaban. Clinical Quality Measures DVT/VTE Risk/Contraindication: Risk Factor Score Per Nursin RFS Level Per Nursing on Admit: 4+=Very High Copy Copies To 1: CHUCK HIGGINS MD, BETHANY N MD Jun 02, 2018 15:59
[2018-06-02] MEDS ORDERED: NS 100 ML (IVPB) BAG IV ONE (16:30)
[2018-06-02] MEDS ORDERED: IOHEXOL 350 MG/ML 100 ML (OMNIPAQUE 350) VIAL IV ONE (16:30)
[2018-06-02] MEDS ORDERED: RECEIVED CONTRAST (Hold Metformin) IV SCH (16:30)
--- NOTE | 2018-06-02 17:10 | Diagnostic Imaging Report ---
PROCEDURE: CT abdomen and pelvis with contrast. TECHNIQUE: Multiple contiguous axial images were obtained through the abdomen and pelvis after administration of intravenous contrast. INDICATION: Abdominal pain in the umbilical region. COMPARISON: Correlation is made with prior CT from 01/10/2018. FINDINGS: Lung bases demonstrate some linear parenchymal opacities, suggestive of some scarring or atelectasis. There is appears to be a trace pleural fluid on the left as well. Liver demonstrates some generalized low density, suggestive of hepatic steatosis. No discrete liver mass is seen. The gallbladder is unremarkable. No biliary ductal dilatation is seen. The pancreas and spleen are unremarkable. No adrenal mass is detected. The kidneys are unremarkable. The aorta is nonaneurysmal. The visualized bowel demonstrate large amount of stool throughout the colon, suggestive of constipation. The small bowel loops do not appear to be appreciably dilated. There is no ascites. No free air is seen. There is no fluid collection. The bladder contains a Werner catheter but otherwise unremarkable. No inflammatory changes in the abdomen or pelvis are seen. IMPRESSION: 1. Bibasilar subsegmental atelectasis and trace left pleural effusion. 2. Hepatic steatosis. 3. Findings suggestive of constipation. No other significant abnormality is detected. Dictated by: Dictated on workstation # [id number]
[2018-06-02] MEDS ORDERED: DRONABINOL 2.5 MG (MARINOL) CAP PO SCH (17:30)
[2018-06-02] MEDS ORDERED: DRONABINOL 5 MG PO SCH (17:30)
--- NOTE | 2018-06-02 19:21 | NUR ---
Call to Pharmacy, [facility], notified that unable to obtain Marinol or Wellbutrin from [facility] of the [facility] [employer] on unit. She states that tech is out on the floors filling the omnicells
[2018-06-02] MEDS: GABAPENTIN 600 MG (NEURONTIN) TAB PO SCH (20:17)
[2018-06-02] MEDS: DICYCLOMINE 10 MG (BENTYL) CAP PO SCH (20:18)
[2018-06-02] MEDS: RIVAROXABAN 20 MG TABLET (XARELTO) PO SCH (20:18)
[2018-06-02] MEDS: buPROPion SR 100 MG (WELLBUTRIN SR) TAB PO SCH (20:19)
[2018-06-02] MEDS ORDERED: NON-FORMULARY MEDICATION 1 EA EA (Pregabalin (Lyrica) 150 MG) PO SCH (21:00)
[2018-06-02] MEDS ORDERED: NON-FORMULARY MEDICATION 1 EA EA (Dicyclomine HCl 20 MG) PO SCH (21:00)
[2018-06-02] MEDS ORDERED: NON-FORMULARY MEDICATION 1 EA EA (Bupropion HCl (Bupropion HCl Sr) 100 MG) PO SCH (21:00)
[2018-06-02] MEDS ORDERED: ATORVASTATIN 40 MG (LIPITOR) TABLET PO SCH (21:00)
[2018-06-02] MEDS ORDERED: NON-FORMULARY MEDICATION 1 EA EA (Escitalopram Oxalate 20 MG) PO SCH (21:00)
[2018-06-03] MEDS: POTASSIUM CHLORIDE INJ 40 MEQ in 1/2 NS IV SOLUTION 1,000 ML IV SCH ×2 (03:20→10:51)
[2018-06-03 04:00] VITALS: BP 109/61
[2018-06-03] MEDS: buPROPion SR 100 MG (WELLBUTRIN SR) TAB PO SCH (06:18)
[2018-06-03 06:50] LABS: HEMOGLOBIN 12.2 G/DL (11.5-16.0); MEAN PLATELET VOLUME 11.6 FL (7.4-10.4); RED BLOOD COUNT 4.45 10^6/uL (4.35-5.85); RED CELL DISTRIBUTION WIDTH 14.2 % (10.0-14.5)
[2018-06-03] MEDS ORDERED: PANTOPRAZOLE 40 MG (PROTONIX) TAB PO SCH (07:00)
[2018-06-03 07:18] LABS: BUN/CREATININE RATIO 10; CALCIUM 9.4 MG/DL (8.5-10.1); CARBON DIOXIDE 20 MMOL/L (21-32); CHLORIDE 112 MMOL/L (98-107); CREATININE SERUM 0.86 MG/DL (0.60-1.30); GFR ESTIMATED > 60; GLUCOSE 97 MG/DL (70-105); POTASSIUM 6.1 MMOL/L (3.6-5.0); SODIUM 140 MMOL/L (135-145)
[2018-06-03] MEDS: DICYCLOMINE 10 MG (BENTYL) CAP PO SCH (07:28)
[2018-06-03] MEDS: GABAPENTIN 600 MG (NEURONTIN) TAB PO SCH (07:29)
[2018-06-03] MEDS: PREGABALIN 75 MG (LYRICA) CAP PO SCH (07:29)
[2018-06-03] MEDS: oxyCODONE/APAP 10/325MG (PERCOCET 10) TABLET PO PRN (07:29)
[2018-06-03] MEDS: ONDANSETRON 4 MG/2 ML (SDV) Z0FRAN IV PRN (07:31)
[2018-06-03 08:00] VITALS: BP 120/78
[2018-06-03] MEDS ORDERED: NON-FORMULARY MEDICATION 1 EA EA (Duloxetine HCl 60 MG) PO SCH (09:00)
[2018-06-03] MEDS ORDERED: DULoxetine 30 MG (CYMBALTA) CAP PO SCH ×2 (09:00)
[2018-06-03] MEDS ORDERED: RT-ADVAIR HFA 115/21 MCG PER PUFF IH SCH (09:00)
[2018-06-03] MEDS ORDERED: MONTELUKAST 10 MG (SINGULAIR) TAB PO SCH (09:00)
[2018-06-03] MEDS ORDERED: NON-FORMULARY MEDICATION 1 EA EA (Omeprazole 40 MG) PO SCH (09:00)
[2018-06-03] MEDS ORDERED: POLY255P16 PO (10:08)
--- NOTE | 2018-06-03 10:18 | Discharge Instructions ---
Discharge [facility] Discharge Medications New, Converted or Re-Newed RX: Other (No new scripts, only dose change) Changed Medications: Polyethylene Glycol 3350 (Polyethylene Glycol 3350) 255 Gm Powder 17 GM PO TID, #1 EA (Changed from: DAILY; Removed Reason) Take miralax 3x daily until having multiple soft stools per day, then decrease to once daily. Continued Medications: Acetaminophen (Acetaminophen) 500 Mg Tablet 1000 MG PO Q4H PRN for PAIN-MILD, TAB TAKES 2 (500 MG) TABLETS Albuterol Sulfate (Proair Hfa) 1 Puff Puff 2 PUFF IH QID PRN for SHORTNESS OF BREATH, INHALER Atorvastatin Calcium (Atorvastatin Calcium) 40 Mg Tablet 40 MG PO HS, TAB Bupropion HCl (Bupropion HCl Sr) 100 Mg Tablet.er 100 MG PO BID, TAB Butorphanol Tartrate (Butorphanol Tartrate) 25 Mg [place] 1 SPRAY NS BID PRN for MIGRAINE, EA Cyanocobalamin (Vitamin B-12) (B-12) 1,000 Mcg Tablet 1000 MCG PO DAILY, TAB Dicyclomine HCl (Dicyclomine HCl) 20 Mg Tablet 20 MG PO BID, TAB Dronabinol (Dronabinol) 5 Mg Capsule 5 MG PO 1200,1730, CAP Duloxetine HCl (Duloxetine HCl) 60 Mg Capsule.dr 60 MG PO DAILY, CAP TAKES ALONG WITH 30MG CAPSULE FOR A TOTAL DAILY DOSE OF 90MG Duloxetine HCl (Duloxetine HCl) 30 Mg Capsule.dr 30 MG PO DAILY, CAP TAKES ALONG WITH 60MG CAPSULE FOR A TOTAL DAILY DOSE OF 90MG Escitalopram Oxalate (Escitalopram Oxalate) 20 Mg Tablet 20 MG PO HS, TAB Fluticasone/Salmeterol (Advair Hfa 115-21 Mcg Inhaler) 12 Gm Hfa.aer.ad 1 PUFF INH DAILY, INHALER Gabapentin (Gabapentin) 600 Mg Tablet 600 MG PO TID, TAB Insulin Glargine,Hum.rec.anlog (Lantus Solostar) 100 Unit/1 Ml Insuln.pen 30 UNIT SQ HS, EA Insulin Lispro (Humalog Kwikpen) 100 Unit/1 Ml Insuln.pen 10 UNIT SQ TIDAC, EA Montelukast Sodium (Montelukast Sodium) 10 Mg Tablet 10 MG PO DAILY, TAB Multivitamins with Iron (Daily Vitamin + Iron) 1 Each Tablet 1 TAB PO DAILY, TAB Omeprazole (Omeprazole) 40 Mg Capsule.dr 40 MG PO DAILY, CAP Ondansetron (Ondansetron Odt) 8 Mg Tab.rapdis 8 MG SL Q6H PRN for NAUSEA/VOMITING-1ST LINE, TAB Oxycodone HCl/Acetaminophen (Oxycodone-Acetaminophen 10-325) 1 Each Tablet 1 TAB PO QID PRN for PAIN-MODERATE, TAB Pregabalin (Lyrica) 150 Mg Capsule 150 MG PO BID, CAP Promethazine HCl (Promethazine Tablet) 25 Mg Tablet 25 MG PO Q6H PRN for NAUSEA/VOMITING-2ND LINE, TAB Rivaroxaban (Xarelto) 20 Mg Tablet 20 MG PO HS, TAB Rizatriptan Benzoate (Rizatriptan) 5 Mg Tablet 5 MG PO UD PRN for MIGRAINE, TAB Tizanidine HCl (Tizanidine HCl) 4 Mg Tablet 4 MG PO BID PRN for MUSCLE SPASMS, TAB Discontinued Medications: Zolpidem Tartrate (Zolpidem Tartrate) 10 Mg Tablet 10 MG PO HS, TAB Patient Instructions Goal/Follow Up Appt: Follow up at [facility] Dr. Frias on 06/08 at 1140 am. Return to The Hospital For: Confusion, dizziness, inability to keep down medications Activity & Diet Discharge Diet: ADA Diet Activity as Tolerated: Yes NANNETTE SANDOVAL MD Jun 03, 2018 10:10
--- NOTE | 2018-06-03 10:19 | Discharge Summary ---
Diagnosis/Chief Complaint Date of Admission Jun 01, 2018 at 18:50 Date of Discharge Jun 03, 2018 Admission Diagnosis Admission Diagnosis See problem list Discharge Diagnosis See problem list Problems/Diagnosis: (1) Altered mental status Assessment & Plan: Resolved, suspect secondary to hypoglycemia. No evidence of infection and CT head and CXR with no acute findings. Status: Resolved Resolution Date/Time: 06/02/18 @ 11:32 (2) Hypoglycemia associated with type 2 diabetes mellitus Assessment & Plan: Unclear fully etiology, but sounds like she has had poor intake. Will hold insulin and monitor blood sugars and adjust dosing as needed. Discussed the importance of recognizing signs of hypoglycemia early and having not only quick sugar source but something that will last to avoid repeat lows. Resumed home insulin on d/c, but encouraged to maintain adequate intake and decrease insulin if not eating. Status: Acute (3) Abdominal pain Assessment & Plan: Apparently somewhat chronic on review of chart, but she does have rather marked pain today and notes nausea and poor appetite which is likely contributing to the hypoglycemia. Will check CT abdomen and monitor intake. CT abdomen essentially unremarkable except for stool throughout colon. Status: Acute (4) IDDM (insulin dependent diabetes mellitus) Assessment & Plan: Held insulin inpatient. Status: Chronic (5) Constipation due to pain medication Assessment & Plan: Suspect constipation causing abdominal pain and nausea leading to poor intake. Increase miralax to TID on d/c until adequate bowel movements. Status: Chronic Chief Complaint/HPI Chief Complaint/HPI 47 yo female brought to ER due to altered mental status. She does not really recall what happened. She was found to have low blood sugar and improved with glucose administration. She states she does not necessarily get symptoms when her blood sugar is getting low. She takes long and short acting insulin, and does not always eat 3 meals per day. She does say she carries life savers in her purse in case her blood sugar gets low. She does state she doesn't take her short acting insulin if she doesn't eat. She states she has had abdominal pain that is fairly significant for a month or more. She denies constipation or diarrhea, but has been nauseated. She has not seen blood in her stool. Discharge Summary-Simple/Stand Consultations Discharge Physical Examination Allergies: Coded Allergies: aspirin (Verified Allergy, Unknown, 10/25/13) Uncoded Allergies: NSAIDS (Allergy, Unknown, 6/2/14) COUMADIN (Adverse Reaction, Unknown, 10/25/13) VOMITS BLOOD Vitals & I&Os Vital Sign - Last 12Hours Date Time Temp Pulse Resp B/P (MAP) Pulse Ox O2 Delivery O2 Flow Rate FiO2 06/03/18 08:00 Room Air 06/03/18 08:00 97.9 85 16 120/78 (92) 100 Intake and Output 06/03/18 00:00 Intake Total 1490 ml Output Total 3000 ml Balance -1510 ml General Appearance: Alert, No Acute Distress Respiratory: Clear to Auscultation, Normal Air Movement Cardiovascular: Regular Rate, No Murmurs Abdominal: Normal Bowel Sounds, Other (mild distention, ttp periumbilical) Psych/Mental Status: Mental Status NL Hospital Course See final discharge diagnosis. Labs Laboratory Tests Test 06/01/18 17:15 06/01/18 17:25 06/01/18 17:42 06/01/18 18:36 Range/Units White Blood Count 12.1 H 4.3-11.0 10^3/uL Red Blood Count 4.51 4.35-5.85 10^6/uL Hemoglobin 12.4 11.5-16.0 G/DL Hematocrit 39 35-52 % Mean Corpuscular Volume 86 80-99 FL Mean Corpuscular Hemoglobin 28 25-34 PG Mean Corpuscular Hemoglobin Concent 32 32-36 G/DL Red Cell Distribution Width 14.2 10.0-14.5 % Platelet Count 356 130-400 10^3/uL Mean Platelet Volume 10.9 H 7.4-10.4 FL Neutrophils (%) (Auto) 53 42-75 % Lymphocytes (%) (Auto) 36 12-44 % Monocytes (%) (Auto) 8 0-12 % Eosinophils (%) (Auto) 3 0-10 % Basophils (%) (Auto) 0 0-10 % Neutrophils # (Auto) 6.4 1.8-7.8 X 10^3 Lymphocytes # (Auto) 4.3 H 1.0-4.0 X 10^3 Monocytes # (Auto) 1.0 0.0-1.0 X 10^3 Eosinophils # (Auto) 0.4 H 0.0-0.3 10^3/uL Basophils # (Auto) 0.0 0.0-0.1 10^3/uL Sodium Level 144 135-145 MMOL/L Potassium Level 2.9 L 3.6-5.0 MMOL/L Chloride Level 111 H 98-107 MMOL/L Carbon Dioxide Level 21 21-32 MMOL/L Anion Gap 12 5-14 MMOL/L Blood Urea Nitrogen 10 7-18 MG/DL Creatinine 0.86 0.60-1.30 MG/DL Estimat Glomerular Filtration Rate > 60 BUN/Creatinine Ratio 12 Glucose Level 44 *L 70-105 MG/DL Calcium Level 9.6 8.5-10.1 MG/DL Corrected Calcium 9.7 8.5-10.1 MG/DL Total Bilirubin 0.2 0.1-1.0 MG/DL Aspartate Amino Transf (AST/SGOT) 18 5-34 U/L Alanine Aminotransferase (ALT/SGPT) 11 0-55 U/L Alkaline Phosphatase 122 40-136 U/L Total Protein 7.7 6.4-8.2 GM/DL Albumin 3.9 3.2-4.5 GM/DL Thyroid Stimulating Hormone (TSH) 0.19 L 0.35-4.94 UIU/ML Salicylates Level < 5.0 L 5.0-20.0 MG/DL Acetaminophen Level < 10 L 10-30 UG/ML Serum Alcohol < 10 <10 MG/DL Urine Color YELLOW Urine Clarity CLEAR Urine pH 6 5-9 Urine Specific [place] 1.015 L 1.016-1.022 Urine Protein 3+ H NEGATIVE Urine Glucose (UA) NEGATIVE NEGATIVE Urine Ketones NEGATIVE NEGATIVE Urine Nitrite NEGATIVE NEGATIVE Urine Bilirubin NEGATIVE NEGATIVE Urine Urobilinogen NORMAL NORMAL MG/DL Urine Leukocyte Esterase NEGATIVE NEGATIVE Urine RBC (Auto) 1+ H NEGATIVE Urine RBC 0-2 /HPF Urine WBC RARE /HPF Urine Crystals PRESENT H /LPF Urine Amorphous Sediment MOD JOVI URATES H /LPF Urine Bacteria TRACE /HPF Urine Casts NONE /LPF Urine Mucus NEGATIVE /LPF Urine Culture Indicated NO Urine Test NEGATIVE NEGATIVE Urine Opiates Screen NEGATIVE NEGATIVE Urine Oxycodone Screen NEGATIVE NEGATIVE Urine Methadone Screen NEGATIVE NEGATIVE Urine Propoxyphene Screen NEGATIVE NEGATIVE Urine Barbiturates Screen NEGATIVE NEGATIVE Ur Tricyclic Antidepressants Screen NEGATIVE NEGATIVE Urine Phencyclidine Screen NEGATIVE NEGATIVE Urine Amphetamines Screen NEGATIVE NEGATIVE Urine Methamphetamines Screen NEGATIVE NEGATIVE Urine Benzodiazepines Screen NEGATIVE NEGATIVE Urine Cocaine Screen NEGATIVE NEGATIVE Urine Cannabinoids Screen POSITIVE H NEGATIVE Glucometer 80 187 H 70-110 MG/DL Test 06/01/18 20:56 1/7/19 22:48 06/02/18 01:22 06/02/18 03:14 Range/Units Glucometer 119 H 89 81 55 *L 70-110 MG/DL Test 06/02/18 04:18 06/02/18 05:10 06/02/18 07:30 06/02/18 09:10 Range/Units Glucometer 139 H 64 L 167 H 70-110 MG/DL White Blood Count 9.7 4.3-11.0 10^3/uL Red Blood Count 4.14 L 4.35-5.85 10^6/uL Hemoglobin 11.3 L 11.5-16.0 G/DL Hematocrit 36 35-52 % Mean Corpuscular Volume 87 80-99 FL Mean Corpuscular Hemoglobin 27 25-34 PG Mean Corpuscular Hemoglobin Concent 31 L 32-36 G/DL Red Cell Distribution Width 14.3 10.0-14.5 % Platelet Count 308 130-400 10^3/uL Mean Platelet Volume 11.2 H 7.4-10.4 FL Neutrophils (%) (Auto) 56 42-75 % Lymphocytes (%) (Auto) 34 12-44 % Monocytes (%) (Auto) 8 0-12 % Eosinophils (%) (Auto) 3 0-10 % Basophils (%) (Auto) 0 0-10 % Neutrophils # (Auto) 5.4 1.8-7.8 X 10^3 Lymphocytes # (Auto) 3.3 1.0-4.0 X 10^3 Monocytes # (Auto) 0.7 0.0-1.0 X 10^3 Eosinophils # (Auto) 0.2 0.0-0.3 10^3/uL Basophils # (Auto) 0.0 0.0-0.1 10^3/uL Sodium Level 143 135-145 MMOL/L Potassium Level 4.2 3.6-5.0 MMOL/L Chloride Level 114 H 98-107 MMOL/L Carbon Dioxide Level 20 L 21-32 MMOL/L Anion Gap 9 5-14 MMOL/L Blood Urea Nitrogen 7 7-18 MG/DL Creatinine 0.78 0.60-1.30 MG/DL Estimat Glomerular Filtration Rate > 60 BUN/Creatinine Ratio 9 Glucose Level 84 70-105 MG/DL Calcium Level 8.5 8.5-10.1 MG/DL Test 06/02/18 11:50 06/02/18 15:40 06/02/18 18:09 06/02/18 19:53 Range/Units Glucometer 137 H 97 83 109 70-110 MG/DL Test 06/02/18 22:50 06/03/18 00:13 06/03/18 05:17 06/03/18 06:12 Range/Units Glucometer 121 H 171 H 101 70-110 MG/DL White Blood Count 9.0 4.3-11.0 10^3/uL Red Blood Count 4.45 4.35-5.85 10^6/uL Hemoglobin 12.2 11.5-16.0 G/DL Hematocrit 39 35-52 % Mean Corpuscular Volume 88 80-99 FL Mean Corpuscular Hemoglobin 27 25-34 PG Mean Corpuscular Hemoglobin Concent 31 L 32-36 G/DL Red Cell Distribution Width 14.2 10.0-14.5 % Platelet Count 298 130-400 10^3/uL Mean Platelet Volume 11.6 H 7.4-10.4 FL Sodium Level 140 135-145 MMOL/L Potassium Level 6.1 H 3.6-5.0 MMOL/L Chloride Level 112 H 98-107 MMOL/L Carbon Dioxide Level 20 L 21-32 MMOL/L Anion Gap 8 5-14 MMOL/L Blood Urea Nitrogen 9 7-18 MG/DL Creatinine 0.86 0.60-1.30 MG/DL Estimat Glomerular Filtration Rate > 60 BUN/Creatinine Ratio 10 Glucose Level 97 70-105 MG/DL Calcium Level 9.4 8.5-10.1 MG/DL Test 06/03/18 08:05 Range/Units Glucometer 113 H 70-110 MG/DL Radiology Reviewed CT head 06/01/18 IMPRESSION: 1. No acute intracranial hemorrhage or CT evidence of acute territorial ischemia. 2. Focal area of hypoattenuation in the left periventricular white matter, may represent chronic microvascular disease or possibly prominent perivascular space. CXR 06/01/18: IMPRESSION: Stable chronic findings in the lungs with no focal consolidation seen. Discharge Instructions to patient/family Please see electronic discharge instructions given to patient. Discharge Medications Reviewed and agree with Discharge Medication list on patient's Discharge Instruction sheet Clinical Quality Measures DVT/VTE Risk/Contraindication: Risk Factor Score Per Nursin RFS Level Per Nursing on Admit: 4+=Very High Copy Copies To 1: HORACE HIGGINS MD, BETHANY N MD Jun 03, 2018 10:19
--- NOTE | 2018-06-03 11:30 | NUR ---
JAZMIN YOU demonstrates understanding of discharge instructions and accurately returns instructions upon questioning. Copy of Post-Discharge Instructions and Medication Discharge Instructions given to PT. JAZMIN YOU is able to manage continuing needs after discharge. Patients belongings returned to PT. Skin dry and intact; no breakdown noted. Patient discharged from [facility] on 06/03/18 at 1130. JAZMIN YOU left floor via WC, accompanied by STAFF/FAMILY.
== END 2018-06-03 10:08 | disposition home or self-care (01) ==
LOC: EDUNIT# 16:53 → ER 16:55 → 4TH 18:50 → UNDOADMOB 18:50 → 4TH 20:20 → UNDODISOB 06-03 11:30
PROVIDERS: ADMIT Family Medicine; ATTEND Family Medicine
DX: E11.649 Type 2 diabetes mellitus with hypoglycemia without coma (principal); E87.6 Hypokalemia; R10.33 Periumbilical pain; F17.210 Nicotine dependence, cigarettes, uncomplicated; J45.909 Unspecified asthma, uncomplicated; K21.9 Gastro-esophageal reflux disease without esophagitis; M79.7 Fibromyalgia; K59.03 Drug induced constipation; T40.605A Adverse effect of unspecified narcotics, initial encounter; Z85.43 Personal history of malignant neoplasm of ovary; Z92.21 Personal history of antineoplastic chemotherapy; Z92.3 Personal history of irradiation; Z90.710 Acquired absence of both cervix and uterus; Z86.711 Personal history of pulmonary embolism; Z79.01 Long term (current) use of anticoagulants; Z79.4 Long term (current) use of insulin; Z79.899 Other long term (current) drug therapy
CPT/HCPCS: 36415; 51702; 70450; 71045; 74177; 80048; 80053; 80306; 80320; 80329; 81000; 82962; 84443; 84703; 85025; 85027; 93005; 93041; 94640; 94760; 96361; 96365; 96375; G0378

== ENCOUNTER → 2018-06-01 | Outpatient (CLI) | payer MEDICARE, MEDICAID ==
[~2018-06-01] MED LIST changes: +BTR10SP2 NS; +BUPR100T8 PO; +DICY20TA10 PO; +DRON5CAP14 PO; +DULO60CA58 PO; +FLUT12AE4 INH; +GABA600T2 PO; -GBPN600T PO; -METR-145 PO; +METR-197 PO; +MONT10TA24 PO; +RIZA5TAB28 PO
--- NOTE | 2018-06-01 18:30 | Diagnostic Imaging Report ---
INDICATION: Bilateral breast pain. Patient complains of pain in the retroareolar left breast and superior right breast. COMPARISON: Correlation is made with prior mammograms from 05/20/2017 and 04/15/2016. TECHNIQUE: 2D and 3D bilateral diagnostic mammography was performed with computer-aided detection (CAD) system. FINDINGS: Both breasts are heterogeneously dense, limiting the sensitivity of mammography. No discrete mass or malignant appearing microcalcifications are seen. Specifically, no mammographic abnormality at the areas of pain are identified. The axillae are unremarkable. IMPRESSION: No mammographic features suspicious for malignancy are identified. Even so, directed sonographic interrogation of the areas of pain in bilateral breasts is recommended and will be performed today. ACR BI-RADS Category 0: Incomplete. (Needs additional imaging evaluation). Result letter will be mailed to the patient. Note: At least 10% of breast cancer is not imaged by mammography. Dictated by: Dictated on workstation # [id number]
--- NOTE | 2018-06-01 18:48 | Diagnostic Imaging Report ---
INDICATION: Bilateral breast pain. Correlation is made with diagnostic mammogram earlier same day. FINDINGS: Sonographic interrogation of the area of pain in the upper right breast as well as the retroareolar left breast was performed. No sonographic abnormality is identified in either breast. No solid or cystic mass is seen. IMPRESSION: No sonographic abnormality is detected. Clinical follow-up is recommended. ACR BI-RADS Category 1: Negative. Result letter will be mailed to the patient. Note: At least 10% of breast cancer is not imaged by mammography. Dictated by: Dictated on workstation # [id number]
== END ==
LOC: RAD 13:41
PROVIDERS: ATTEND Nurse Practitioner Family
DX: N64.4 Mastodynia (principal); R92.8 Other abnormal and inconclusive findings on diagnostic imaging of breast
CPT/HCPCS: 76642; 77066; 82962

== ENCOUNTER 2018-06-10 17:13 | Emergency (ER) | payer MEDICARE, MEDICAID ==
[~2018-06-10] VITALS: Ht 160 cm; Wt 50.8 kg
[~2018-06-10 17:13] MED LIST changes: +BTR10SP2 NS; +BUPR100T8 PO; +DICY20TA10 PO; +DRON5CAP14 PO; +DULO60CA58 PO; +FLUT12AE4 INH; +MONT10TA24 PO; +RIZA5TAB28 PO
[2018-06-10] MEDS ORDERED: D5 NS 1000 ML IV SOLUTION 1,000 ML IV SCH (17:30)
[2018-06-10 18:18] LABS: BASOPHILS % (AUTO) 0 % (0-10); EOSINOPHILS # (AUTO) 0.2 10^3/uL (0.0-0.3); EOSINOPHILS % (AUTO) 2 % (0-10); HEMATOCRIT 37 % (35-52); HEMOGLOBIN 11.4 G/DL (11.5-16.0); LYMPHOCYTES # (AUTO) 1.6 X 10^3 (1.0-4.0); LYMPHOCYTES % (AUTO) 16 % (12-44); MEAN CORPUSCULAR HEMOGLOBIN 28 PG (25-34); MEAN CORPUSCULAR HGB CONC 31 G/DL (32-36); MEAN CORPUSCULAR VOLUME 89 FL (80-99); MEAN PLATELET VOLUME 11.2 FL (7.4-10.4); MONOCYTES # (AUTO) 0.9 X 10^3 (0.0-1.0); MONOCYTES % (AUTO) 8 % (0-12); NEUTROPHILS # (AUTO) 7.6 X 10^3 (1.8-7.8); NEUTROPHILS % (AUTO) 74 % (42-75); PLATELET COUNT 282 10^3/uL (130-400); RED BLOOD COUNT 4.13 10^6/uL (4.35-5.85); RED CELL DISTRIBUTION WIDTH 14.1 % (10.0-14.5); WHITE BLOOD COUNT 10.3 10^3/uL (4.3-11.0)
--- NOTE | 2018-06-10 18:20 | NUR ---
PT REPORTS BACK PAIN AND REQUESTS PAIN MEDICATION.
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
[2018-06-10 18:22] LABS: BILIRUBIN,URINE NEGATIVE (NEGATIVE); CLARITY,URINE CLEAR; COLOR,URINE YELLOW; GLUCOSE, URINE (UA) 2+ (NEGATIVE); KETONES,URINE NEGATIVE (NEGATIVE); LEUKOCYTE ESTERASE ,URINE 2+ (NEGATIVE); NITRITE,URINE NEGATIVE (NEGATIVE); PH,URINE 5 (5-9); PROTEIN,URINE 3+ (NEGATIVE); UROBILINOGEN,URINE NORMAL (NORMAL)
[2018-06-10 18:29] LABS: ALANINE AMINOTRANSFERASE 12 U/L (0-55); ALBUMIN 3.4 GM/DL (3.2-4.5); ALKALINE PHOSPHATASE 111 U/L (40-136); BILIRUBIN,TOTAL 0.3 MG/DL (0.1-1.0); BUN/CREATININE RATIO 15; CALCIUM 8.7 MG/DL (8.5-10.1); CARBON DIOXIDE 16 MMOL/L (21-32); CHLORIDE 112 MMOL/L (98-107); CREATININE SERUM 0.96 MG/DL (0.60-1.30); GFR ESTIMATED > 60; GLUCOSE 231 MG/DL (70-105); POTASSIUM 3.5 MMOL/L (3.6-5.0); SODIUM 140 MMOL/L (135-145); TOTAL PROTEIN 6.2 GM/DL (6.4-8.2)
[2018-06-10] MEDS ORDERED: oxyCODONE/APAP 5/325MG (PERCOCET 5) TABLET PO ONE (18:30)
[2018-06-10 18:31] LABS: RBC,URINE 0-2 /HPF; SQUAMOUS EPITHELIAL CELL,UR 0-2 /HPF
[2018-06-10 18:40] LABS: AMPHETAMINE SCREEN, URINE NEGATIVE (NEGATIVE); BARBITURATE SCREEN URINE NEGATIVE (NEGATIVE); BENZODIAZEPINES SCREEN URINE NEGATIVE (NEGATIVE); CANNABINOID SCREEN, URINE POSITIVE (NEGATIVE); COCAINE SCREEN URINE NEGATIVE (NEGATIVE); METHADONE STAT NEGATIVE (NEGATIVE); METHAMPHETAMINE SCREEN URINE S NEGATIVE (NEGATIVE); OPIATE SCREEN URINE NEGATIVE (NEGATIVE); OXYCODONE STAT POSITIVE (NEGATIVE); PROPOXYPHENE STAT NEGATIVE (NEGATIVE); TRICYCLIC ANTIDEPRESSANTS SCRE NEGATIVE (NEGATIVE)
[2018-06-10] MEDS ORDERED: CEPH-507 PO (19:12)
[2018-06-10] MEDS ORDERED: POLY119P5 PO (19:12)
[2018-06-10 19:30] VITALS: BP 97/66
== END 2018-06-10 19:57 | disposition home or self-care (01) ==
LOC: EDUNIT# 17:13 → ER 17:14
DX: E11.649 Type 2 diabetes mellitus with hypoglycemia without coma (principal); N39.0 Urinary tract infection, site not specified; M54.9 Dorsalgia, unspecified; G89.29 Other chronic pain; J45.909 Unspecified asthma, uncomplicated; I10 Essential (primary) hypertension; G43.909 Migraine, unspecified, not intractable, without status migrainosus; K21.9 Gastro-esophageal reflux disease without esophagitis; F43.10 Post-traumatic stress disorder, unspecified; F41.9 Anxiety disorder, unspecified; F32.9 Major depressive disorder, single episode, unspecified; K58.9 Irritable bowel syndrome, unspecified; E11.40 Type 2 diabetes mellitus with diabetic neuropathy, unspecified; E11.10 Type 2 diabetes mellitus with ketoacidosis without coma; F12.10 Cannabis abuse, uncomplicated; Z90.49 Acquired absence of other specified parts of digestive tract; Z82.49 Family history of ischemic heart disease and other diseases of the circulatory system; Z91.410 Personal history of adult physical and sexual abuse; Z87.19 Personal history of other diseases of the digestive system; Z90.710 Acquired absence of both cervix and uterus; Z86.711 Personal history of pulmonary embolism; Z92.21 Personal history of antineoplastic chemotherapy; Z85.43 Personal history of malignant neoplasm of ovary; Z87.891 Personal history of nicotine dependence; Z88.6 Allergy status to analgesic agent; Z88.8 Allergy status to other drugs, medicaments and biological substances; Z79.4 Long term (current) use of insulin; Z87.440 Personal history of urinary (tract) infections; Z79.51 Long term (current) use of inhaled steroids; Z79.01 Long term (current) use of anticoagulants
CPT/HCPCS: 36415; 80053; 80306; 81000; 82962; 85025; 87088

== ENCOUNTER 2018-07-14 00:20 | Emergency (ER) | payer MEDICARE, MEDICAID ==
[~2018-07-14] VITALS: Ht 160 cm; Wt 50.8 kg
[~2018-07-14 00:20] MED LIST changes: +CEPH-507 PO; -GABA600T2 PO; +GBPN600T PO; +METR-145 PO; -METR-197 PO
[2018-07-14] MEDS ORDERED: DEXTROSE 50% 50 ML (IMS) SYR ONE (00:23)
[2018-07-14] MEDS ORDERED: DEXTROSE 50% 50 ML (IMS) SYR IV ONE (00:30)
[2018-07-14 00:40] LABS: BASOPHILS % (AUTO) 0 % (0-10); EOSINOPHILS # (AUTO) 0.2 10^3/uL (0.0-0.3); EOSINOPHILS % (AUTO) 2 % (0-10); HEMATOCRIT 41 % (35-52); HEMOGLOBIN 13.1 G/DL (11.5-16.0); LYMPHOCYTES # (AUTO) 2.2 X 10^3 (1.0-4.0); LYMPHOCYTES % (AUTO) 19 % (12-44); MEAN CORPUSCULAR HEMOGLOBIN 28 PG (25-34); MEAN CORPUSCULAR HGB CONC 32 G/DL (32-36); MEAN CORPUSCULAR VOLUME 86 FL (80-99); MEAN PLATELET VOLUME 11.2 FL (7.4-10.4); MONOCYTES # (AUTO) 0.8 X 10^3 (0.0-1.0); MONOCYTES % (AUTO) 7 % (0-12); NEUTROPHILS # (AUTO) 8.3 X 10^3 (1.8-7.8); NEUTROPHILS % (AUTO) 72 % (42-75); PLATELET COUNT 313 10^3/uL (130-400); RED CELL DISTRIBUTION WIDTH 14.8 % (10.0-14.5); WHITE BLOOD COUNT 11.4 10^3/uL (4.3-11.0)
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
[2018-07-14] MEDS ORDERED: IOHEXOL 350 MG/ML 100 ML (OMNIPAQUE 350) VIAL IV ONE (01:45)
[2018-07-14] MEDS ORDERED: RECEIVED CONTRAST (Hold Metformin) IV SCH (01:45)
[2018-07-14] MEDS ORDERED: NS 100 ML (IVPB) BAG IV ONE (01:45)
[2018-07-14 01:54] LABS: INR 2.2 (0.8-1.4); PROTHROMBIN TIME PATIENT 24.7 SEC (12.2-14.7)
[2018-07-14 01:58] LABS: BILIRUBIN,URINE NEGATIVE (NEGATIVE); CLARITY,URINE CLEAR; COLOR,URINE YELLOW; GLUCOSE, URINE (UA) 2+ (NEGATIVE); KETONES,URINE NEGATIVE (NEGATIVE); LEUKOCYTE ESTERASE ,URINE 3+ (NEGATIVE); NITRITE,URINE NEGATIVE (NEGATIVE); PH,URINE 5 (5-9); PROTEIN,URINE 3+ (NEGATIVE); UROBILINOGEN,URINE NORMAL (NORMAL)
[2018-07-14] MEDS ORDERED: HYDROcodone/APAP 5 MG/325 MG (LORTAB) TAB PO ONE (02:00)
[2018-07-14 02:03] LABS: ALANINE AMINOTRANSFERASE 11 U/L (0-55); ALBUMIN 3.7 GM/DL (3.2-4.5); ALKALINE PHOSPHATASE 118 U/L (40-136); BILIRUBIN,TOTAL 0.3 MG/DL (0.1-1.0); BUN/CREATININE RATIO 12; CALCIUM 9.5 MG/DL (8.5-10.1); CARBON DIOXIDE 21 MMOL/L (21-32); CHLORIDE 105 MMOL/L (98-107); CREATININE SERUM 1.16 MG/DL (0.60-1.30); GFR ESTIMATED > 60; GLUCOSE 187 MG/DL (70-105); POTASSIUM 4.1 MMOL/L (3.6-5.0); SODIUM 139 MMOL/L (135-145); TOTAL PROTEIN 6.5 GM/DL (6.4-8.2)
[2018-07-14 02:08] LABS: BACTERIA,URINE FEW /HPF; HYALINE CASTS, URINE 0-2 /LPF; SQUAMOUS EPITHELIAL CELL,UR 0-2 /HPF
[2018-07-14 02:16] LABS: AMPHETAMINE SCREEN, URINE NEGATIVE (NEGATIVE); BARBITURATE SCREEN URINE NEGATIVE (NEGATIVE); BENZODIAZEPINES SCREEN URINE NEGATIVE (NEGATIVE); CANNABINOID SCREEN, URINE POSITIVE (NEGATIVE); COCAINE SCREEN URINE NEGATIVE (NEGATIVE); METHADONE STAT NEGATIVE (NEGATIVE); METHAMPHETAMINE SCREEN URINE S NEGATIVE (NEGATIVE); OPIATE SCREEN URINE NEGATIVE (NEGATIVE); OXYCODONE STAT POSITIVE (NEGATIVE); PROPOXYPHENE STAT NEGATIVE (NEGATIVE); TRICYCLIC ANTIDEPRESSANTS SCRE NEGATIVE (NEGATIVE)
[2018-07-14] MEDS ORDERED: NS IV 1000 ML 1,000 ML IV ONE (02:25)
[2018-07-14] MEDS ORDERED: cefTRIAXone FOR IV USE 1,000 MG in WATER (STERILE) FOR INJECTION 10 ML IV ONE (02:30)
[2018-07-14] MEDS ORDERED: CEPH-507 PO (02:32)
[2018-07-14 02:36] LABS: FREE T4 (FREE THYROXINE) 0.85 NG/DL (0.70-1.48)
[2018-07-14 03:52] VITALS: BP 110/72
--- NOTE | 2018-07-14 06:59 | Diagnostic Imaging Report ---
PROCEDURE: CT head, face, and cervical spine without contrast. TECHNIQUE: Multiple contiguous axial images were obtained through the head, neck, and facial bones without the use of intravenous contrast. Sagittal and coronal reformations through the cervical spine and facial bones were also performed. INDICATION: Fall. Head CT compared 06/01/2018. Head: Chronic periventricular white matter disease present with an old left basal ganglier lacunar infarct chronic. There is no hemorrhage or acute extra-axial fluid collection in the basilar cisterns are patent. There is no sulcal effacement. The calvarium appeared nonacute. There is no mastoid effusion. No paranasal sinus air-fluid level. No change from prior. CT facial bones: Nasal bones and bony nasal septum intact. The maxillary sinus elizabeth intact. The mandible and bony temporomandibular joints intact. The zygomatic arches intact. Intra-and posterior elizabeth of the frontal sinus is intact. The paranasal sinuses are clear. The bony orbital elizabeth and orbital contents appeared unremarkable. The external auditory canals, the mastoid air cells and middle ear cavities unremarkable. The bony skull base is intact. CT cervical spine: Reconstruction views reveal normal body heights aligned anatomically. No fracture or paravertebral hematoma. No acute or suspect endplate irregularity. No substantial stenosis. There is heterogeneous enlargement of the thyroid with partially visualized bilateral thyroid lobe nodules not appreciably changed when correlated with soft tissue neck CT performed April 2018. IMPRESSION: CT head: Stable chronic findings. No acute or posttraumatic sequelae. CT cervical spine: No fracture or traumatic malalignment. CT facial bones: No facial fracture or hemo-sinus. Dictated by: Dictated on workstation # [id number]
--- NOTE | 2018-07-14 07:13 | Diagnostic Imaging Report ---
PROCEDURE: CT chest, abdomen, and pelvis with contrast. TECHNIQUE: Multiple contiguous axial images were obtained through the chest, abdomen, and pelvis after the administration of intravenous contrast. INDICATION: Fall pain. Exam compared with abdominal and pelvic CT 06/02/2018. CHEST: Sternum and manubrium appeared intact. The diaphragm is intact. No lung contusion, pneumothorax or hemothorax. No findings of aspiration or pulmonary laceration or contusion. No suspicious mass or adenopathy. The aorta is intact and patent. No pericardial collection. No rib fracture deformity. No chest wall hematoma. ABDOMEN AND PELVIS: There is no free fluid or hemoperitoneum. There is no free air. Reconstruction views revealed unremarkable appearance of the thoracolumbar spine aligned anatomically. The pelvic osseous structures appeared intact. The urinary bladder unremarkable. There is colonic constipation without bowel obstruction. No evidence for hepatosplenic laceration. The adrenals are negative. The kidneys are unobstructed. There is pancreas within normal limits. Fluid and ingested material distending the stomach. The urinary bladder is intact. The uterus is absent. There is no adnexal lesion. There is mild aortoiliac atherosclerotic vascular disease without aneurysm. No mass or adenopathy. IMPRESSION: No acute or posttraumatic sequelae identified within the chest, abdomen or pelvis. Dictated by: Dictated on workstation # [id number]
--- NOTE | 2018-07-14 07:21 | Diagnostic Imaging Report ---
INDICATION: Fall with pain FINDINGS: Two views of the bilateral knees performed. There is no fracture or dislocation apparent. IMPRESSION: No acute appearing abnormality. Dictated by: Dictated on workstation # [id number]
== END 2018-07-14 03:52 | disposition home or self-care (01) ==
LOC: EDUNIT# 00:20 → ER 00:21
DX: S00.83XA Contusion of other part of head, initial encounter (principal); R07.89 Other chest pain; N39.0 Urinary tract infection, site not specified; E11.649 Type 2 diabetes mellitus with hypoglycemia without coma; E04.1 Nontoxic single thyroid nodule; J45.909 Unspecified asthma, uncomplicated; I10 Essential (primary) hypertension; G43.909 Migraine, unspecified, not intractable, without status migrainosus; K21.9 Gastro-esophageal reflux disease without esophagitis; K58.9 Irritable bowel syndrome, unspecified; F43.10 Post-traumatic stress disorder, unspecified; F41.9 Anxiety disorder, unspecified; F32.9 Major depressive disorder, single episode, unspecified; E11.10 Type 2 diabetes mellitus with ketoacidosis without coma; E11.40 Type 2 diabetes mellitus with diabetic neuropathy, unspecified; Z85.43 Personal history of malignant neoplasm of ovary; Z87.19 Personal history of other diseases of the digestive system; Z86.711 Personal history of pulmonary embolism; Z82.49 Family history of ischemic heart disease and other diseases of the circulatory system; Z88.6 Allergy status to analgesic agent; Z88.8 Allergy status to other drugs, medicaments and biological substances; Z79.01 Long term (current) use of anticoagulants; Z79.51 Long term (current) use of inhaled steroids; Z79.4 Long term (current) use of insulin; Z87.891 Personal history of nicotine dependence; Z90.710 Acquired absence of both cervix and uterus; Z98.890 Other specified postprocedural states; Z90.49 Acquired absence of other specified parts of digestive tract; W19.XXXA Unspecified fall, initial encounter; Y92.009 Unspecified place in unspecified non-institutional (private) residence as the place of occurrence of the external cause
CPT/HCPCS: 36415; 70450; 70486; 71260; 72125; 74177; 80053; 80306; 80320; 81000; 82550; 82962; 84439; 84443; 85025; 85610; 85730; 87088; 96361; 96374; 96375

== ENCOUNTER 2018-08-17 22:22 | Emergency (ER) | payer MEDICARE, MEDICAID ==
[~2018-08-17] VITALS: Ht 160 cm; Wt 51.7 kg
--- OUTSIDE RECORDS SUMMARY | 2018-08-17 22:28 | XMS REPORT | Clinical Summary ---
Author Author [facility] Organization [facility] Address Unknown Phone Unavailable Care Team Providers Care Wall [place] Department Supervisor Name Role Phone Aamir Magdaleno MD Unavailable Greyson Powell RN Unavailable Unavailable Ella Carrion RN Unavailable Unavailable Misa Alvarez MD Unavailable Smitha Milian RN Unavailable Unavailable Tito Limon MD Unavailable John Raymond MD Unavailable Chioma Jacques RN Unavailable Unavailable Megan Bryan RN Unavailable Unavailable Myesha Orona BUFFING MACHINE OPERATOR SEMIAUTOMATIC Unavailable Arvin Aguilar RN Unavailable Unavailable Manasa Savage RN Unavailable Unavailable Andrea Durant BUFFING MACHINE OPERATOR SEMIAUTOMATIC Unavailable Jack Davila RN Unavailable Unavailable Vanessa Perez MD Unavailable Radha Malin MD Unavailable Chuck Frias MD PCP Source Comments Some departments are not documenting in the electronic medical record. If you do not see the information that you expected, contact Release of Information in the Health Information Management department at [phone] for further assistance in locating additional records.[facility] Allergies Comments Active Allergy Reactions Severity [...] Overview: Added automatically from request for surgery [id number] Superior mesenteric artery syndrome 03/17/2009 Anemia 03/17/2009 Vitamin D deficiency 03/17/2009 Malnutrition 03/17/2009 Weight loss, unintentional 03/06/2009 Migraine 09/17/2008 Depression 09/17/2008 Anxiety 09/17/2008 Suicide attempt 09/17/2008 Asthma 09/17/2008 Chronic pain 09/17/2008 Resolved Problems Problem Noted Date Resolved Date Abdominal pain 09/17/2008 07/29/2017 Immunizations Name Dates Previously Given Next Due [...] Taken Vital Sign Reading 04/15/2018 9:09 AM SIGNALLING AND COMMUNICATIONS ENGINEER Blood Pressure 104/59 04/15/2018 9:09 AM SIGNALLING AND COMMUNICATIONS ENGINEER Pulse 95 12/10/2017 3:27 PM CDT Temperature 36.9 C (98.4 F) 07/29/2017 11:22 AM SIGNALLING AND COMMUNICATIONS ENGINEER Respiratory Rate 18 12/10/2017 3:27 PM CDT Oxygen Saturation 100% - Inhaled Oxygen - Concentration 04/15/2018 9:09 AM SIGNALLING AND COMMUNICATIONS ENGINEER Weight 50.3 kg (111 lb) 04/15/2018 9:09 AM SIGNALLING AND COMMUNICATIONS ENGINEER Height 157.5 cm (5' 2") 04/15/2018 9:09 AM SIGNALLING AND COMMUNICATIONS ENGINEER Body Mass Index 20.3 Plan of Treatment Health Maintenance Due Date Last Done Comments PHYSICAL (COMPREHENSIVE) 1978 EXAM DTAP/TDAP VACCINES ( - 1989 Tdap) CERVICAL CANCER SCREENING 2001 BREAST CANCER SCREENING 2011 INFLUENZA VACCINE 12/24/2017 03/04/2009, 04/20/2008 HIV SCREENING Completed 03/03/2009 Results Not on filefrom Last 3 Months Insurance Type Payer Benefit Subscriber ID Effective Phone Address Plan / Dates Group Medicare MEDICARE MEDICARE xxxxxxxxxx 2009-P PART A AND resent B Medicaid [facility] MEDICAID [facility] xxxxxxxxxxx 2017- COMMUNITY Present PLAN [place] Advance Directives Patient has advance care planning documents, and code status on file. For more information, please contact: [facility] [address] [place] [address] Date Inactivated Comments Code Status Date Activated 03/17/2009 8:26 PM Full Code 03/02/2009 5:47 PM 09/17/2008 7:51 PM Full Code 09/15/2008 11:04 PM
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
[2018-08-17 23:26] LABS: BASOPHILS % (AUTO) 0 % (0-10); EOSINOPHILS # (AUTO) 0.2 10^3/uL (0.0-0.3); EOSINOPHILS % (AUTO) 2 % (0-10); HEMATOCRIT 39 % (35-52); HEMOGLOBIN 12.2 G/DL (11.5-16.0); LYMPHOCYTES # (AUTO) 1.6 X 10^3 (1.0-4.0); LYMPHOCYTES % (AUTO) 15 % (12-44); MEAN CORPUSCULAR HEMOGLOBIN 28 PG (25-34); MEAN CORPUSCULAR HGB CONC 31 G/DL (32-36); MEAN CORPUSCULAR VOLUME 90 FL (80-99); MONOCYTES # (AUTO) 0.7 X 10^3 (0.0-1.0); MONOCYTES % (AUTO) 6 % (0-12); NEUTROPHILS # (AUTO) 8.2 X 10^3 (1.8-7.8); NEUTROPHILS % (AUTO) 76 % (42-75); PLATELET COUNT 275 10^3/uL (130-400); RED CELL DISTRIBUTION WIDTH 14.5 % (10.0-14.5); WHITE BLOOD COUNT 10.7 10^3/uL (4.3-11.0)
--- NOTE | 2018-08-17 23:35 | NUR ---
CALLED TO PT ROOM. UPON ENTERING PT IV OUT OF RT ARM. PT REPORTS SHE DOES NOT KNOW HOW IT GOT PULLED OUT. PRESSURE HELD TO SITE. BLEEDING CEASED. Addendum: 08/18/18 at 0122 by TLBROCE 600ML NS BOLUS INFUSED FROM [facility].
[2018-08-17 23:48] LABS: ACETAMINOPHEN 17 UG/ML (10-30); ALANINE AMINOTRANSFERASE 12 U/L (0-55); ALBUMIN 3.5 GM/DL (3.2-4.5); ALKALINE PHOSPHATASE 118 U/L (40-136); BILIRUBIN,TOTAL 0.2 MG/DL (0.1-1.0); BUN/CREATININE RATIO 16; CALCIUM 8.4 MG/DL (8.5-10.1); CARBON DIOXIDE 18 MMOL/L (21-32); CHLORIDE 114 MMOL/L (98-107); GFR ESTIMATED > 60; GLUCOSE 93 MG/DL (70-105); MAGNESIUM 1.9 MG/DL (1.8-2.4); SALICYLATE < 5.0 MG/DL (5.0-20.0); SODIUM 142 MMOL/L (135-145)
[2018-08-17 23:54] LABS: BILIRUBIN,URINE NEGATIVE (NEGATIVE); CLARITY,URINE CLEAR; COLOR,URINE YELLOW; GLUCOSE, URINE (UA) NEGATIVE (NEGATIVE); KETONES,URINE NEGATIVE (NEGATIVE); LEUKOCYTE ESTERASE ,URINE 1+ (NEGATIVE); NITRITE,URINE NEGATIVE (NEGATIVE); PH,URINE 6 (5-9); PROTEIN,URINE 2+ (NEGATIVE); UROBILINOGEN,URINE NORMAL (NORMAL)
[2018-08-18 00:02] LABS: BACTERIA,URINE NEGATIVE /HPF
[2018-08-18 00:22] LABS: AMPHETAMINE SCREEN, URINE NEGATIVE (NEGATIVE); BARBITURATE SCREEN URINE NEGATIVE (NEGATIVE); BENZODIAZEPINES SCREEN URINE NEGATIVE (NEGATIVE); CANNABINOID SCREEN, URINE NEGATIVE (NEGATIVE); COCAINE SCREEN URINE NEGATIVE (NEGATIVE); METHADONE STAT NEGATIVE (NEGATIVE); METHAMPHETAMINE SCREEN URINE S NEGATIVE (NEGATIVE); OPIATE SCREEN URINE NEGATIVE (NEGATIVE); OXYCODONE STAT NEGATIVE (NEGATIVE); PROPOXYPHENE STAT NEGATIVE (NEGATIVE); TRICYCLIC ANTIDEPRESSANTS SCRE NEGATIVE (NEGATIVE)
[2018-08-18 00:25] VITALS: BP_SYST 102; BP_SYST 110; BP_DIAS 73; BP_DIAS 79
[2018-08-18 00:46] VITALS: BP 115/82
--- NOTE | 2018-08-18 06:27 | Diagnostic Imaging Report ---
CLINICAL INDICATION: Patient status post fall week ago. EXAM: Axial CT scan of brain performed without IV contrast. COMPARISON: CT scan of brain performed without contrast dated 07/14/2018. FINDINGS: There is no evidence of acute cerebral infarct, intracranial hemorrhage, or gross mass effect. 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 The brain parenchymal volume appears appropriate for patient's age. There is normal valente-white matter distinction. There is no significant midline shift or herniation. There is no evidence of hydrocephalus. The basal cisterns are unremarkable. The skull, extracranial soft tissue, and orbits are unremarkable. There is small amount of mucosal thickening in the ethmoid sinus. Temporal bones show no significant abnormality. IMPRESSION: 1: There is no acute intracranial process. 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 I agree with [facility] report. Dictated by: Dictated on workstation # [id number]
--- NOTE | 2018-08-18 07:00 | Diagnostic Imaging Report ---
CLINICAL INDICATION: Patient status post fall week ago. EXAM: Portable chest x-ray upright view. COMPARISONS: Chest x-ray dated 06/01/2018. FINDINGS: There is mild increase airspace opacities in the left lung base which may represent atelectasis, but superimposed infiltrate cannot be completely excluded. Otherwise, remainder of the increased lung markings in both lung bases are stable. There is no pleural effusion or pneumothorax. Again seen minimal thickening along the minor fissure which may represent fluid or scarring. Pulmonary vasculature and cardiac silhouette is within normal limits. Bones show no fracture. IMPRESSION: 1: There is increase left lung base atelectasis versus infiltrate. Otherwise, there is stable increased lung markings in both lung bases. 2: Otherwise, there is no interval radiographic evidence of acute cardiopulmonary process. Dictated by: Dictated on workstation # [id number]
--- NOTE | 2018-08-18 07:27 | Diagnostic Imaging Report ---
INDICATION: Fall a week ago EXAMINATION: Left shoulder 08/17/2018 FINDINGS: 3 views of the shoulder FINDINGS: There is no evidence for an acute fracture or dislocation. The joint spaces are well maintained. There is no significant soft tissue swelling. IMPRESSION: No acute process. Dictated by: Dictated on workstation # [id number]
== END 2018-08-18 00:46 | disposition home or self-care (01) ==
LOC: EDUNIT# 22:22 → ER 22:23
DX: S09.90XA Unspecified injury of head, initial encounter (principal); M25.512 Pain in left shoulder; R41.82 Altered mental status, unspecified; G47.10 Hypersomnia, unspecified; J45.909 Unspecified asthma, uncomplicated; I10 Essential (primary) hypertension; G43.909 Migraine, unspecified, not intractable, without status migrainosus; F43.10 Post-traumatic stress disorder, unspecified; F41.9 Anxiety disorder, unspecified; F32.9 Major depressive disorder, single episode, unspecified; K21.9 Gastro-esophageal reflux disease without esophagitis; K58.9 Irritable bowel syndrome, unspecified; E11.10 Type 2 diabetes mellitus with ketoacidosis without coma; Z82.49 Family history of ischemic heart disease and other diseases of the circulatory system; Z92.21 Personal history of antineoplastic chemotherapy; Z87.19 Personal history of other diseases of the digestive system; Z85.43 Personal history of malignant neoplasm of ovary; Z86.711 Personal history of pulmonary embolism; Z88.6 Allergy status to analgesic agent; Z88.8 Allergy status to other drugs, medicaments and biological substances; Z79.51 Long term (current) use of inhaled steroids; Z79.4 Long term (current) use of insulin; Z79.01 Long term (current) use of anticoagulants; Z87.891 Personal history of nicotine dependence; Z90.710 Acquired absence of both cervix and uterus; Z90.49 Acquired absence of other specified parts of digestive tract; Z98.890 Other specified postprocedural states; W18.30XA Fall on same level, unspecified, initial encounter
CPT/HCPCS: 36415; 70450; 71045; 73030; 80053; 80306; 80320; 80329; 81000; 82962; 83735; 85025; 86141

== ENCOUNTER 2018-08-19 00:20 | Emergency (ER) | payer MEDICARE, MEDICAID ==
[~2018-08-19] VITALS: Ht 160 cm; Wt 51.9 kg
[2018-08-19] MEDS ORDERED: DEXTROSE 50% 50 ML (IMS) SYR IV ONE (00:30)
--- NOTE | 2018-08-19 01:05 | NUR ---
pt encouraged to eat more of meal tray.
--- NOTE | 2018-08-19 01:46 | NUR ---
pt's sister notified pt was being discharged et. needed a ride home.
--- NOTE | 2018-08-19 01:49 | ED General ---
General Chief Complaint: Glucose Problems Stated Complaint: HYPOGLYCEMIA Nursing Triage Note: brought in by [facility] for low blood glucose. 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 Her initial fingerstick blood sugars at home during a nearly unresponsive episode where in the 40s. Family gave her honey which improved her blood sugars to the 80s. Blood sugar was 66 on arrival even after an amp of D50 administered by EMS. Patient was seen and worked up just yesterday for altered mental status felt to be caused by marginal blood sugars and multiple sedating medications. Insulin dosing was reportedly increased a week or 2 ago and patient has been having low blood sugars since then. Allergies and Home Medications Allergies Coded Allergies: aspirin (Verified Allergy, Unknown, 10/25/13) Uncoded Allergies: NSAIDS (Allergy, Unknown, 10/25/13) COUMADIN (Adverse Reaction, Unknown, 10/25/13) VOMITS BLOOD Home Medications Acetaminophen 500 Mg Tablet, 1,000 MG PO Q4H PRN for PAIN-MILD, (Reported) TAKES 2 (500 MG) TABLETS Albuterol Sulfate 1 Puff Puff, 2 PUFF IH QID PRN for SHORTNESS OF BREATH, ( Reported) Atorvastatin Calcium 40 Mg Tablet, 40 MG PO HS, (Reported) Bupropion HCl 100 Mg Tablet.er, 100 MG PO BID, (Reported) Butorphanol Tartrate 25 Mg [place], 1 SPRAY NS BID PRN for MIGRAINE, (Reported) Cephalexin 500 Mg Capsule, 500 MG PO TID Prescribed by: MARCUS RAINEY on 06/10/181911 Cephalexin 500 Mg Capsule, 500 MG PO TID Prescribed by: MARCUS RAINEY on 07/14/18231 Cyanocobalamin (Vitamin B-12) 1,000 Mcg Tablet, 1,000 MCG PO DAILY, (Reported) Dicyclomine HCl 20 Mg Tablet, 20 MG PO BID, (Reported) Dronabinol 5 Mg Capsule, 5 MG PO 1200,1730, (Reported) Duloxetine HCl 60 Mg Capsule.dr, 60 MG PO DAILY, (Reported) TAKES ALONG WITH 30MG CAPSULE FOR A TOTAL DAILY DOSE OF 90MG Duloxetine HCl 30 Mg Capsule.dr, 30 MG PO DAILY, (Reported) TAKES ALONG WITH 60MG CAPSULE FOR A TOTAL DAILY DOSE OF 90MG Escitalopram Oxalate 20 Mg Tablet, 20 MG PO HS, (Reported) Fluticasone/Salmeterol 12 Gm Hfa.aer.ad, 1 PUFF INH DAILY, (Reported) Gabapentin 600 Mg Tablet, 600 MG PO TID, (Reported) Insulin Glargine,Hum.rec.anlog 100 Unit/1 Ml Insuln.pen, 30 UNIT SQ HS, ( Reported) Insulin Lispro 100 Unit/1 Ml Insuln.pen, 10 UNIT SQ TIDAC, (Reported) Montelukast Sodium 10 Mg Tablet, 10 MG PO DAILY, (Reported) Multivitamins with Iron 1 Each Tablet, 1 TAB PO DAILY, (Reported) Omeprazole 40 Mg Capsule.dr, 40 MG PO DAILY, (Reported) Ondansetron 8 Mg Tab.rapdis, 8 MG SL Q6H PRN for NAUSEA/VOMITING-1ST LINE, ( Reported) Oxycodone HCl/Acetaminophen 1 Each Tablet, 1 TAB PO QID PRN for PAIN-MODERATE, ( Reported) Polyethylene Glycol 3350 255 Gm Powder, 17 GM PO TID Take miralax 3x daily until having multiple soft stools per day, then decrease to once daily. Prescribed by: NANNETTE SANDOVAL on 06/03/18 1008 Polyethylene Glycol 3350 119 Gm Powder, 17 GM PO BID PRN for CONSTIPATION-1ST LINE Fill cap to line. Dissolve in 8-12 ounces of clear liquid and take once or twice daily Prescribed by: MARCUS RAINEY on 06/10/181911 Pregabalin 150 Mg Capsule, 150 MG PO BID, (Reported) Promethazine HCl 25 Mg Tablet, 25 MG PO Q6H PRN for NAUSEA/VOMITING-2ND LINE, ( Reported) Rivaroxaban 20 Mg Tablet, 20 MG PO HS, (Reported) Rizatriptan Benzoate 5 Mg Tablet, 5 MG PO UD PRN for MIGRAINE, (Reported) Tizanidine HCl 4 Mg Tablet, 4 MG PO BID PRN for MUSCLE SPASMS, (Reported) Patient Home Medication List Home Medication List Reviewed: Yes Review of Systems Review of Systems Constitutional: see HPI EENTM: no symptoms reported Respiratory: no symptoms reported Cardiovascular: no symptoms reported Gastrointestinal: no symptoms reported Genitourinary: no symptoms reported : No Musculoskeletal: no symptoms reported Skin: no symptoms reported Psychiatric/Neurological: See HPI Hematologic/Lymphatic: No Symptoms Reported Immunological/Allergic: no symptoms reported Past Yrhvvfp-Bgftca-Ejfeak Hx Past Med/Social Hx: Reviewed Nursing Past Med/Soc Hx Patient Social History Alcohol Use: Denies Use Recreational Drug Use: No Drug of Choice: TESTED + FOR THC, BUT HAS BEEN PRESCRIBED MARINOL Smoking Status: Former Smoker Type Used: Cigarettes Former Smoker, Quit: Jan 28, 2017 2nd Hand Smoke Exposure: Yes Recent Foreign Travel: No Contact w/Someone Who Travel: No Recent Infectious Disease Expo: No Recent Hopitalizations: Yes (multiple e.d. 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, 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 Genitourinary: No Gastrointestinal: Yes Abdominal Hernia, Gastroesophageal Reflux, Gastrointestinal Bleed, Obstructive Bowel, Irritable Bowel Musculoskeletal: Yes Arthritis, Fibromyalgia, Chronic Back Pain Endocrine: Yes Diabetes, Insulin dep HEENT: Yes Hearing Impairment: Bilateral Hearing Aide Cancer: Yes Ovarian Did You Recieve Any Treatments: Yes What Type of Treatment Did You: Surgical Intervention Psychosocial: Yes Anxiety, PTSD, Depression Integumentary: No Blood Disorders: No Adverse Reaction/Blood Tranf: No Family Medical History Cardiovascular disease 19 MOTHER (CHF) G8 SISTER (CHF) Cataracts 19 MOTHER Diabetes mellitus 19 MOTHER G8 BROTHER G8 BROTHER G8 SISTER Hypertension 19 MOTHER G8 SISTER Heart Disease, Diabetes, Hypertension Physical Exam Vital Signs Vital Signs - First Documented 08/19/18 00:20 Temp 96.9 Pulse 92 Resp 18 B/P (MAP) 107/74 (85) Pulse Ox 95 O2 Delivery Room Air Capillary Refill : Less Than 3 Seconds Height, Weight, BMI Height: 5'3.00" Weight: 114lbs. 8.0oz. 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 Norm as Tested, Other (Patient is somnolent with dulled mentation but is functional, alert, and answers questions appropriately.) Skin: Normal Color, Warm/Dry Progress/Results/Core Measures Suspected Sepsis Recent Fever Within 48 Hours: No Infection Criteria Present: None New/Unexplained Altered Menta: No Sepsis Screen: No Definite Risk SIRS Temperature:96.9 Pulse: 92 Respiratory Rate: 18 Blood Pressure 107 /74 Mean: 85 Results/Orders Lab Results Laboratory Tests Test 08/19/18 00:26 08/19/18 01:04 08/19/18 01:42 Range/Units Glucometer 66 L 78 108 70-110 MG/DL My Orders Orders - MARCUS NEVAREZ MD D50w (Emergency) Syringe (Dextrose 50% 5 (08/19/18 00:30) Accucheck Stat ONCE (08/19/18 00:49) Accucheck Stat ONCE (08/19/18 00:49) Accucheck Stat ONCE (08/19/18 01:58) Medications Given in ED Current Medications Medications Dose Ordered Sig/Jenifer Route Start Time Stop Time Status Last Admin Dose Admin Dextrose 25 ml ONCE ONCE IV 08/19/18 00:30 08/19/18 00:31 DC 08/19/18 00:31 25 ML Vital Signs/I&O 08/19/18 08/19/18 00:20 01:57 Temp 96.9 97.0 Pulse 92 87 Resp 18 18 B/P (MAP) 107/74 (85) 109/72 (84) Pulse Ox 95 95 O2 Delivery Room Air Room Air Capillary Refill : Less Than 3 Seconds Blood Pressure Mean: 85 Point of Care Testing Finger Stick Blood Glucose: 78 Blood Glucose Action Taken: erp notified Progress Note : Progress Note Patient received a half amp of D50 and was fed. Blood sugars were trending up at 78 and 108. Patient was advised to decrease her insulin dosing. See discharge instructions. Departure Impression Primary Impression: Hypoglycemia associated with diabetes Disposition: 01 HOME, SELF-CARE Condition: Improved Departure-Patient Inst. Decision time for Depature: 01:40 Referrals: HORACE HIGGINS MD (PCP/Family) Primary Care Physician Patient Instructions: HYPOGLYCEMIA Add. Discharge Instructions: Monitor your blood sugars closely. Check your blood sugars fasting in the morning and 2 hours after each meal. Record these blood sugars and bring them to your doctor's appointment. Follow-up with your primary care provider soon as possible. His office in the morning for an appointment time. Reduce your insulin doses to doses you're taking before the most recent increase. If you do not know what the prior dosing was, then decrease your dosing by 10-20 percent. Return to the emergency room if you have worsening symptoms. Eat a well-balanced diet and do not skip meals. All discharge instructions reviewed with patient and/or family. Voiced understanding. Copy Copies To 1: HORACE HIGGINS MD, JOSHUA T MD Aug 19, 2018 01:49
[2018-08-19 01:57] VITALS: BP 109/72
== END 2018-08-19 02:04 | disposition home or self-care (01) ==
LOC: EDUNIT# 00:20 → ER 00:22
DX: E11.649 Type 2 diabetes mellitus with hypoglycemia without coma (principal); J45.909 Unspecified asthma, uncomplicated; I10 Essential (primary) hypertension; G43.909 Migraine, unspecified, not intractable, without status migrainosus; E11.40 Type 2 diabetes mellitus with diabetic neuropathy, unspecified; K21.9 Gastro-esophageal reflux disease without esophagitis; K58.9 Irritable bowel syndrome, unspecified; F41.9 Anxiety disorder, unspecified; F43.10 Post-traumatic stress disorder, unspecified; F32.9 Major depressive disorder, single episode, unspecified; Z85.43 Personal history of malignant neoplasm of ovary; Z86.711 Personal history of pulmonary embolism; Z87.891 Personal history of nicotine dependence; Z88.6 Allergy status to analgesic agent; Z88.8 Allergy status to other drugs, medicaments and biological substances; Z79.4 Long term (current) use of insulin; Z90.49 Acquired absence of other specified parts of digestive tract; Z90.710 Acquired absence of both cervix and uterus; Z82.49 Family history of ischemic heart disease and other diseases of the circulatory system
CPT/HCPCS: 82962

== ENCOUNTER 2018-08-23 06:28 | Emergency (ER) | payer MEDICARE, MEDICAID ==
[~2018-08-23] VITALS: Ht 160 cm; Wt 51.9 kg
--- NOTE | 2018-08-23 06:41 | ED Back Pain ---
General Chief Complaint: Back Problems Stated Complaint: BACK PAIN Nursing Triage Note: TO ED VIA EMS WITH C/O LOWER BACK PAIN THAT STARTED LAST NIGHT. MOANING, WRITHING ALL OVER BED. Nursing Sepsis Screen: No Definite Risk Source of Information: Patient, EMS Exam Limitations: No Limitations History of Present Illness Date Seen by Provider: Aug 23, 2018 Time Seen by Provider: 06:30 Initial Comments Patient presents to ER by EMS with chief complaint that she has a long history of chronic low back pain and usually uses Percocet and tizanidine she has not used that recently. She says tonight it's bad enough that she decided come the ER dealt with. She has not been on steroids recently. She says all NSAIDs cause her to swell from the inside out. She's been here twice in the last week for low blood sugar. She would not give a reason why she has not been using her Percocet or tizanidine. She denies fever, chills, cough, dysuria. She is having nausea but no vomiting. Allergies and Home Medications Allergies Coded Allergies: aspirin (Verified Allergy, Unknown, 10/25/13) Uncoded Allergies: NSAIDS (Allergy, Unknown, 10/25/13) COUMADIN (Adverse Reaction, Unknown, 10/25/13) VOMITS BLOOD Home Medications Acetaminophen 500 Mg Tablet, 1,000 MG PO Q4H PRN for PAIN-MILD, (Reported) TAKES 2 (500 MG) TABLETS Albuterol Sulfate 1 Puff Puff, 2 PUFF IH QID PRN for SHORTNESS OF BREATH, ( Reported) Atorvastatin Calcium 40 Mg Tablet, 40 MG PO HS, (Reported) Bupropion HCl 100 Mg Tablet.er, 100 MG PO BID, (Reported) Butorphanol Tartrate 25 Mg [place], 1 SPRAY NS BID PRN for MIGRAINE, (Reported) Cephalexin 500 Mg Capsule, 500 MG PO TID Prescribed by: MARCUS RAINEY on 06/10/181911 Cephalexin 500 Mg Capsule, 500 MG PO TID Prescribed by: MARCUS RAINEY on 07/14/18231 Cyanocobalamin (Vitamin B-12) 1,000 Mcg Tablet, 1,000 MCG PO DAILY, (Reported) Dicyclomine HCl 20 Mg Tablet, 20 MG PO BID, (Reported) Dronabinol 5 Mg Capsule, 5 MG PO 1200,1730, (Reported) Duloxetine HCl 60 Mg Capsule.dr, 60 MG PO DAILY, (Reported) TAKES ALONG WITH 30MG CAPSULE FOR A TOTAL DAILY DOSE OF 90MG Duloxetine HCl 30 Mg Capsule.dr, 30 MG PO DAILY, (Reported) TAKES ALONG WITH 60MG CAPSULE FOR A TOTAL DAILY DOSE OF 90MG Escitalopram Oxalate 20 Mg Tablet, 20 MG PO HS, (Reported) Fluticasone/Salmeterol 12 Gm Hfa.aer.ad, 1 PUFF INH DAILY, (Reported) Gabapentin 600 Mg Tablet, 600 MG PO TID, (Reported) Insulin Glargine,Hum.rec.anlog 100 Unit/1 Ml Insuln.pen, 30 UNIT SQ HS, ( Reported) Insulin Lispro 100 Unit/1 Ml Insuln.pen, 10 UNIT SQ TIDAC, (Reported) Montelukast Sodium 10 Mg Tablet, 10 MG PO DAILY, (Reported) Multivitamins with Iron 1 Each Tablet, 1 TAB PO DAILY, (Reported) Omeprazole 40 Mg Capsule.dr, 40 MG PO DAILY, (Reported) Ondansetron 8 Mg Tab.rapdis, 8 MG SL Q6H PRN for NAUSEA/VOMITING-1ST LINE, ( Reported) Oxycodone HCl/Acetaminophen 1 Each Tablet, 1 TAB PO QID PRN for PAIN-MODERATE, ( Reported) Polyethylene Glycol 3350 255 Gm Powder, 17 GM PO TID Take miralax 3x daily until having multiple soft stools per day, then decrease to once daily. Prescribed by: NANNETTE SANDOVAL on 06/03/18 1008 Polyethylene Glycol 3350 119 Gm Powder, 17 GM PO BID PRN for CONSTIPATION-1ST LINE Fill cap to line. Dissolve in 8-12 ounces of clear liquid and take once or twice daily Prescribed by: MARCUS RAINEY on 06/10/181911 Prednisone 20 Mg Tab, 40 MG PO DAILY Prescribed by: ALESSIA MARLEY on 08/23/18 06 Pregabalin 150 Mg Capsule, 150 MG PO BID, (Reported) Promethazine HCl 25 Mg Tablet, 25 MG PO Q6H PRN for NAUSEA/VOMITING-2ND LINE, ( Reported) Rivaroxaban 20 Mg Tablet, 20 MG PO HS, (Reported) Rizatriptan Benzoate 5 Mg Tablet, 5 MG PO UD PRN for MIGRAINE, (Reported) Tizanidine HCl 4 Mg Tablet, 4 MG PO BID PRN for MUSCLE SPASMS, (Reported) Patient Home Medication List Home Medication List Reviewed: Yes Review of Systems Constitutional: No chills, No malaise EENTM: No ear discharge, No hearing loss Respiratory: No cough, No short of breath Cardiovascular: No chest pain, No edema Gastrointestinal: No abdominal pain, No constipation Genitourinary: No discharge, No dysuria Musculoskeletal: see HPI, back pain; No joint pain Past Yullbam-Xqjucp-Qceqhq Hx Patient Social History Alcohol Use: Denies Use Recreational Drug Use: No Drug of Choice: TESTED + FOR THC, BUT HAS BEEN PRESCRIBED MARINOL Smoking Status: Former Smoker Type Used: Cigarettes Former Smoker, Quit: Jan 28, 2017 2nd Hand Smoke Exposure: Yes Recent Foreign Travel: No Contact w/Someone Who Travel: No Recent Infectious Disease Expo: No Recent Hopitalizations: Yes (multiple e.d. 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, 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 Genitourinary: No Gastrointestinal: Yes Abdominal Hernia, Gastroesophageal Reflux, Gastrointestinal Bleed, Obstructive Bowel, Irritable Bowel Musculoskeletal: Yes Arthritis, Fibromyalgia, Chronic Back Pain Endocrine: Yes Diabetes, Insulin dep HEENT: Yes Hearing Impairment: Bilateral Hearing Aide Cancer: Yes Ovarian Did You Recieve Any Treatments: Yes What Type of Treatment Did You: Surgical Intervention Psychosocial: Yes Anxiety, PTSD, Depression Integumentary: No Blood Disorders: No Adverse Reaction/Blood Tranf: No Family Medical History Cardiovascular disease 19 MOTHER (CHF) G8 SISTER (CHF) Cataracts 19 MOTHER Diabetes mellitus 19 MOTHER G8 BROTHER G8 BROTHER G8 SISTER Hypertension 19 MOTHER G8 SISTER Heart Disease, Diabetes, Hypertension Physical Exam Vital Signs Vital Signs - First Documented 08/23/18 06:33 Temp 96.8 Pulse 100 Resp 22 B/P (MAP) 128/91 (103) Capillary Refill : Less Than 3 Seconds Height, Weight, BMI Height: 5'3.00" Weight: 114lbs. 8.0oz. 51.040384sv; 20.2 BMI Method:Stated General Appearance: No Apparent Distress, WD/WN HEENT: PERRL/EOMI, Pharynx Normal, Moist Mucous Membranes Neck: Full Range of Motion, Normal Inspection, Non Tender, Supple Cardiovascular: Regular Rate, Rhythm, Normal Peripheral Pulses Respiratory: Lungs Clear, Normal Breath Sounds, No Accessory Muscle Use, No Respiratory Distress Peripheral Pulses: 2+ Dorsalis Pedis (R), 2+ Left Dors-Pedis (L), 2+ Radial Pulses (R), 2+ Radial Pulses (L) Gastrointestinal: Normal Bowel Sounds, Non Tender, Soft Back: Normal Inspection, No Vertebral Tenderness Extremity: Normal Capillary Refill, No Pedal Edema Neurologic/Psychiatric: Alert, Oriented x3, No Motor/Sensory Deficits Skin: Normal Color, Warm/Dry Progress/Results/Core Measures Results/Orders My Orders Orders - ALESSIA MARLEY Ondansetron Injection (Zofran Injectio (08/23/18 06:45) Methylprednisolone Sod Succ (Solu-Medrol (08/23/18 06:45) Acetaminophen Tablet (Tylenol Tablet) (08/23/18 06:45) Orphenadrine Injection (Norflex Injectio (08/23/18 07:00) Oxycodone/Acet 10/325mg Tablet (Percocet (08/23/18 07:00) Promethazine Injection (Phenergan Injec (08/23/18 07:15) Medications Given in ED Current Medications Medications Dose Ordered Sig/Jenifer Route Start Time Stop Time Status Last Admin Dose Admin Acetaminophen 1,000 mg ONCE ONCE PO 08/23/18 06:45 08/23/18 06:46 DC 08/23/18 06:54 1,000 MG Methylprednisolone Sodium Succinate 125 mg ONCE ONCE IM 08/23/18 06:45 08/23/18 06:46 DC 08/23/18 06:46 125 MG Ondansetron HCl 4 mg ONCE ONCE IM 08/23/18 06:45 08/23/18 06:46 DC 08/23/18 06:46 4 MG Oxycodone/ Acetaminophen 1 tab ONCE ONCE PO 08/23/18 07:00 08/23/18 07:01 DC 08/23/18 07:55 1 TAB Promethazine HCl 25 mg ONCE ONCE IM 08/23/18 07:15 08/23/18 07:16 DC 08/23/18 07:10 25 MG Vital Signs/I&O 08/23/18 06:33 Temp 96.8 Pulse 100 Resp 22 B/P (MAP) 128/91 (103) Blood Pressure Mean: 103 Progress Progress Note : Time: 06:56 Progress Note Patient has secured her sister has a ride home psoriatic give her some Percocet , Norflex. We give her some Zofran and she's not having vomiting since she's been here. We have offered to do a urinalysis which she's declined. We'll give her some Tylenol and Solu-Medrol put her on prednisone. Departure Impression Primary Impression: Back pain Qualified Codes: M54.5 - Low back pain; G89.29 - Other chronic pain Disposition: 01 HOME, SELF-CARE Condition: Stable Departure-Patient Inst. Decision time for Depature: 07:56 Referrals: HORACE HIGGINS MD (PCP/Family) Primary Care Physician Patient Instructions: Low Back Pain (DC) Add. 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 Follow-up with primary care. All discharge instructions reviewed with patient and/or family. Voiced understanding. Scripts Prednisone (Prednisone) 20 Mg Tab 40 MG PO DAILY for 4 Days, #8 TAB 0 Refills Prov: ALESSIA MARLEY 08/23/18 ALESSIA MARLEY Aug 23, 2018 06:41
[2018-08-23] MEDS ORDERED: methylPREDNISolone 125 MG (Solu-MEDROL) VIAL IM ONE (06:45)
[2018-08-23] MEDS ORDERED: ACETAMINOPHEN 500 MG TAB (TYLENOL) PO ONE (06:45)
[2018-08-23] MEDS ORDERED: ONDANSETRON 4 MG/2 ML (SDV) Z0FRAN IM ONE (06:45)
[2018-08-23] MEDS ORDERED: PRD20T PO (06:59)
[2018-08-23] MEDS ORDERED: oxyCODONE/APAP 10/325MG (PERCOCET 10) TABLET PO ONE (07:00)
[2018-08-23] MEDS ORDERED: ORPHENADRINE 60 MG/2 ML (NORFLEX) AMP IM ONE (07:00)
--- NOTE | 2018-08-23 07:00 | NUR ---
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
[2018-08-23] MEDS ORDERED: PROMETHAZINE INJ 25 MG/ML (PHENERGAN) AMP IM ONE (07:15)
[2018-08-23 07:58] VITALS: BP 127/87
[2018-08-23] MEDS ORDERED: DICY10CA12 PO (18:12)
== END 2018-08-23 08:03 | disposition home or self-care (01) ==
LOC: EDUNIT# 06:28 → ER 06:29
DX: M54.5 Low back pain (principal); J45.909 Unspecified asthma, uncomplicated; I10 Essential (primary) hypertension; G43.909 Migraine, unspecified, not intractable, without status migrainosus; K21.9 Gastro-esophageal reflux disease without esophagitis; F41.9 Anxiety disorder, unspecified; F32.9 Major depressive disorder, single episode, unspecified; F43.10 Post-traumatic stress disorder, unspecified; K58.9 Irritable bowel syndrome, unspecified; Z82.49 Family history of ischemic heart disease and other diseases of the circulatory system; Z87.19 Personal history of other diseases of the digestive system; Z85.43 Personal history of malignant neoplasm of ovary; Z88.6 Allergy status to analgesic agent; Z88.8 Allergy status to other drugs, medicaments and biological substances; Z79.51 Long term (current) use of inhaled steroids; Z79.4 Long term (current) use of insulin; Z79.52 Long term (current) use of systemic steroids; Z79.01 Long term (current) use of anticoagulants; Z87.891 Personal history of nicotine dependence; Z90.49 Acquired absence of other specified parts of digestive tract; Z90.710 Acquired absence of both cervix and uterus; Z98.890 Other specified postprocedural states; Z86.718 Personal history of other venous thrombosis and embolism
CPT/HCPCS: 82962; 96372; 99284

== ENCOUNTER 2018-08-23 15:14 | Emergency (ER) | payer MEDICARE, MEDICAID ==
[~2018-08-23] VITALS: Ht 157.5 cm; Wt 52.2 kg
[~2018-08-23 15:14] MED LIST changes: +PRD20T PO
--- NOTE | 2018-08-23 16:07 | ED General ---
General Chief Complaint: General Problems/Pain Stated Complaint: BACK PAIN Nursing Triage Note: pt to er per ems for the 2nd time today. she fell at her home after going to the bathroom. she reports she became dizzy et fell. no new pain after fall. cont to c/o back et abd pain. ccollar in place upon arrival. pt flailing in bed et ccollar moved above face. pt denies neck pain upon palpation. refuses to wear ccollar. Nursing Sepsis Screen: No Definite Risk History of Present Illness Date Seen by Provider: Aug 23, 2018 Time Seen by Provider: 15:45 Initial Comments 48-year-old -[place] female who was seen earlier today in this emergency department for back pain, now presents for abdominal pain. She was brought by EMS and reports that she had a fall in her bathroom and was complaining of back and neck pain. The patient was placed in a c-collar. When nursing staff presented to the room the patient had her c-collar around her head and not her neck. It was replaced to her neck and when this provider entered the room she had taken it off and thrown it across the room, stating "I am not here for my neck, my stomach hurts." She declines neck pain, she does report slipping in her bathroom but no injury to her back or neck. Her back hurts, slightly but no worse than earlier. She took one half of a Percocet since discharge from here earlier today. She is drowsy and closes her eyes throughout this exam. She's been here multiple times over the last month for hypoglycemia. She is requesting Percocet for abdominal pain, when told that her exam would come before pain medication and then only if indicated, she states "if you won't give me Percocet, I might as well leave." She was calm and cooperative, agreed to have exam. She denies nausea vomiting or diarrhea. She states that she was given Phenergan earlier today and that she has been better since then. Accucheck per EMS 378. Patient has been here recently for hypoglycemia. She reports that her appetite has been less, so she hasn't been eating as much or taking her insulin. She checks it at home and reports it was 108 this morning and 186 last night. Timing/Duration: 4-6 Hours Severity: Mild Associated Systoms: Denies Symptoms Allergies and Home Medications Allergies Coded Allergies: aspirin (Verified Allergy, Unknown, 10/25/13) Uncoded Allergies: NSAIDS (Allergy, Unknown, 10/25/13) COUMADIN (Adverse Reaction, Unknown, 10/25/13) VOMITS BLOOD Home Medications Acetaminophen 500 Mg Tablet, 1,000 MG PO Q4H PRN for PAIN-MILD, (Reported) TAKES 2 (500 MG) TABLETS Albuterol Sulfate 1 Puff Puff, 2 PUFF IH QID PRN for SHORTNESS OF BREATH, ( Reported) Atorvastatin Calcium 40 Mg Tablet, 40 MG PO HS, (Reported) Bupropion HCl 100 Mg Tablet.er, 100 MG PO BID, (Reported) Butorphanol Tartrate 25 Mg [place], 1 SPRAY NS BID PRN for MIGRAINE, (Reported) Cephalexin 500 Mg Capsule, 500 MG PO TID Prescribed by: MARCUS RAINEY on 06/10/181911 Cephalexin 500 Mg Capsule, 500 MG PO TID Prescribed by: MARCUS RAINEY on 07/14/18231 Cyanocobalamin (Vitamin B-12) 1,000 Mcg Tablet, 1,000 MCG PO DAILY, (Reported) Dicyclomine HCl 20 Mg Tablet, 20 MG PO BID, (Reported) Dicyclomine HCl 10 Mg Capsule, 10 MG PO Q6H PRN for ABDOMINAL PAIN Prescribed by: VELIA MATTHEWS on 08/23/181811 Dronabinol 5 Mg Capsule, 5 MG PO 1200,1730, (Reported) Duloxetine HCl 60 Mg Capsule.dr, 60 MG PO DAILY, (Reported) TAKES ALONG WITH 30MG CAPSULE FOR A TOTAL DAILY DOSE OF 90MG Duloxetine HCl 30 Mg Capsule.dr, 30 MG PO DAILY, (Reported) TAKES ALONG WITH 60MG CAPSULE FOR A TOTAL DAILY DOSE OF 90MG Escitalopram Oxalate 20 Mg Tablet, 20 MG PO HS, (Reported) Fluticasone/Salmeterol 12 Gm Hfa.aer.ad, 1 PUFF INH DAILY, (Reported) Gabapentin 600 Mg Tablet, 600 MG PO TID, (Reported) Insulin Glargine,Hum.rec.anlog 100 Unit/1 Ml Insuln.pen, 30 UNIT SQ HS, ( Reported) Insulin Lispro 100 Unit/1 Ml Insuln.pen, 10 UNIT SQ TIDAC, (Reported) Montelukast Sodium 10 Mg Tablet, 10 MG PO DAILY, (Reported) Multivitamins with Iron 1 Each Tablet, 1 TAB PO DAILY, (Reported) Omeprazole 40 Mg Capsule.dr, 40 MG PO DAILY, (Reported) Ondansetron 8 Mg Tab.rapdis, 8 MG SL Q6H PRN for NAUSEA/VOMITING-1ST LINE, ( Reported) Oxycodone HCl/Acetaminophen 1 Each Tablet, 1 TAB PO QID PRN for PAIN-MODERATE, ( Reported) Polyethylene Glycol 3350 255 Gm Powder, 17 GM PO TID Take miralax 3x daily until having multiple soft stools per day, then decrease to once daily. Prescribed by: NANNETTE SANDOVAL on 06/03/18 1008 Polyethylene Glycol 3350 119 Gm Powder, 17 GM PO BID PRN for CONSTIPATION-1ST LINE Fill cap to line. Dissolve in 8-12 ounces of clear liquid and take once or twice daily Prescribed by: MARCUS RAINEY on 06/10/181911 Prednisone 20 Mg Tab, 40 MG PO DAILY Prescribed by: ALESSIA MARLEY on 08/23/18 0659 Pregabalin 150 Mg Capsule, 150 MG PO BID, (Reported) Promethazine HCl 25 Mg Tablet, 25 MG PO Q6H PRN for NAUSEA/VOMITING-2ND LINE, ( Reported) Rivaroxaban 20 Mg Tablet, 20 MG PO HS, (Reported) Rizatriptan Benzoate 5 Mg Tablet, 5 MG PO UD PRN for MIGRAINE, (Reported) Tizanidine HCl 4 Mg Tablet, 4 MG PO BID PRN for MUSCLE SPASMS, (Reported) Patient Home Medication List Home Medication List Reviewed: Yes Review of Systems Review of Systems Constitutional: no symptoms reported, see HPI Gastrointestinal: see HPI, abdominal pain : No (history of hysterectomy with BSO.) All Other Systems Reviewed Negative Unless Noted: Yes Past Urebzpy-Vioirw-Kxqbsp Hx Past Med/Social Hx: Reviewed Nursing Past Med/Soc Hx Patient Social History Alcohol Use: Denies Use Recreational Drug Use: No Drug of Choice: TESTED + FOR THC, BUT HAS BEEN PRESCRIBED MARINOL Type Used: Cigarettes Former Smoker, Quit: Jan 28, 2017 2nd Hand Smoke Exposure: Yes Recent Foreign Travel: No Contact w/Someone Who Travel: No Recent Infectious Disease Expo: No Recent Hopitalizations: Yes (multiple e.d. 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, 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 Genitourinary: No Gastrointestinal: Yes Abdominal Hernia, Gastroesophageal Reflux, Gastrointestinal Bleed, Obstructive Bowel, Irritable Bowel Musculoskeletal: Yes Arthritis, Fibromyalgia, Chronic Back Pain Endocrine: Yes Diabetes, Insulin dep HEENT: Yes Hearing Impairment: Bilateral Hearing Aide Cancer: Yes Ovarian Did You Recieve Any Treatments: Yes What Type of Treatment Did You: Surgical Intervention Psychosocial: Yes Anxiety, PTSD, Depression Integumentary: No Blood Disorders: No Adverse Reaction/Blood Tranf: No Family Medical History Cardiovascular disease 19 MOTHER (CHF) G8 SISTER (CHF) Cataracts 19 MOTHER Diabetes mellitus 19 MOTHER G8 BROTHER G8 BROTHER G8 SISTER Hypertension 19 MOTHER G8 SISTER Heart Disease, Diabetes, Hypertension Physical Exam Vital Signs Vital Signs - First Documented 08/23/18 15:33 Temp 93.3 Pulse 103 Resp 20 B/P (MAP) 108/73 (85) Pulse Ox 96 O2 Delivery Room Air Capillary Refill : Less Than 3 Seconds Height, Weight, BMI Height: 5'2.00" Weight: 115lbs. 8.0oz. [id number]; 20.2 BMI Method:Estimated General Appearance: No Apparent Distress, Cachetic, Thin Eyes: Bilateral Eye Normal Inspection, Bilateral Eye PERRL, Bilateral Eye EOMI HEENT: PERRL/EOMI, TMs Normal, Normal ENT Inspection, Pharynx Normal Neck: Full Range of Motion, Normal Inspection, Non Tender, Supple Respiratory: Chest Non Tender, Lungs Clear, Normal Breath Sounds Cardiovascular: Regular Rate, Rhythm, No Edema, Normal Peripheral Pulses Gastrointestinal: Normal Bowel Sounds, Non Tender, Soft, Distended; No Guarding , No Hepatomegaly, No Hernia, No Mass, No Rebound, No Tenderness Back: Normal Inspection, No Vertebral Tenderness, Decreased Range of Motion; No Muscle Spasm, No Vertebral Tenderness Neurologic/Psychiatric: Alert, No Motor/Sensory Deficits, 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 Skin: Normal Color, Warm/Dry Progress/Results/Core Measures Suspected Sepsis Recent Fever Within 48 Hours: No Infection Criteria Present: None New/Unexplained Altered Menta: No Sepsis Screen: No Definite Risk SIRS Temperature:93.3 Pulse: 103 Respiratory Rate: 20 Blood Pressure 108 /73 Mean: 85 Results/Orders Lab Results Laboratory Tests Test 08/23/18 17:26 Range/Units Glucometer > 600 *H 70-110 MG/DL My Orders Orders - VELIA MATTHEWS Dicyclomine Capsule (Bentyl Capsule) (08/23/18 17:13) Acetaminophen Tablet/Caplet (Tylenol T (08/23/18 17:15) Accucheck Stat ONCE (08/23/18 17:15) Medications Given in ED Current Medications Medications Dose Ordered Sig/Jenifer Route Start Time Stop Time Status Last Admin Dose Admin Acetaminophen 650 mg ONCE ONCE PO 08/23/18 17:15 08/23/18 17:16 DC 08/23/18 17:54 650 MG Vital Signs/I&O 08/23/18 08/23/18 15:33 18:22 Temp 93.3 Pulse 103 92 Resp 20 16 B/P (MAP) 108/73 (85) 103/63 (76) Pulse Ox 96 99 O2 Delivery Room Air Room Air Capillary Refill : Less Than 3 Seconds Blood Pressure Mean: 85 Progress Note : Time: 15:45 Progress Note Patient seen and evaluated, will obtain UA. Patient will not maintain c-collar and is denying head injury, headache, or neck pain at this time. Patient threatening to leave AMA and refuses to have any further blood work. 1630 Temp 96.8. Patient drinking water, denies abdominal pain at this time, on commode but unable to provide UA. 1700 patient requesting Bentyl and Tylenol for abdominal pain. 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 Explained to patient that we need a urine and will have lab draw blood. She refuses to have lab drawn , explained that her glucose could be high or low, but we have no way of knowing if she is hypo or hyper glycemic, either could be life-threatening. She said her blood sugar was 108 this morning and 378 in the ambulance, she doesn't "feel like it is high or low" and she refused to have lab draw. She is requesting d/c to home, "I will check it at home and get my insulin if I need it " Temp up to 97.5. Skin warm and dry. 1800 after patient discharge was noted that the Accucheck synched "> 600" on chart, however tech reports it did not say high on screen. Pt discharged with brother. Phoned at home, she was communicating appropriately and answering questions. Reports she checked her glucose with her glucometer and it was 388, she took Lantus 20 Units SQ. Her brother went to store to get her food. Instructed her to notify her brother or call 911 to return here, if her glucose begins to trend up. She will check it again in 1 hour and call ED with results. 1930 Pt called ED, reports her glucometer is 244. She ate dinner and took an additional 10 units of Lantus. Her brother will check on her tomorrow. She will check her glucose before she goes to bed and call the ED if < 100 or > 300. She is more alert and answering all questions appropriately. Stressed the importance that she follow her Diabetic management and follow up with her PCP early this week. She was in agreement. Departure Impression Primary Impression: Abdominal pain Disposition: HOME, SELF-CARE Condition: Improved Departure-Patient Inst. Decision time for Depature: 17:30 Referrals: HORACE HIGGINS MD (PCP/Family) Primary Care Physician Patient Instructions: Acute Abdomen (Belly Pain), Adult (DC), Chronic Pain (DC) Add. Discharge Instructions: Continue to take Bentyl and Tylenol for abdominal pain. Take your insulin as prescribed and checked her blood sugars 3 times daily. Follow-up with Dr. Higgins if symptoms are not improving or worsen. Return to emergency department for new, urgent health care needs. All discharge instructions reviewed with patient and/or family. Voiced understanding. Scripts Dicyclomine HCl (Dicyclomine HCl) 10 Mg Capsule 10 MG PO Q6H PRN for ABDOMINAL PAIN, #16 CAP 0 Refills Prov: VELIA MATTHEWS 08/23/18 Copy Copies To 1: HORACE HIGGINS MD, AMY ARNP Aug 23, 2018 16:07
--- NOTE | 2018-08-23 17:00 | NUR ---
pt up to bedside commode. unable to produce urine.
[2018-08-23] MEDS ORDERED: DICYCLOMINE 10 MG (BENTYL) CAP PO STA (17:13)
[2018-08-23] MEDS ORDERED: ACETAMINOPHEN 325 MG TABLET PO ONE (17:15)
[2018-08-23] MEDS ORDERED: DICY10CA12 PO (18:12)
[2018-08-23 18:22] VITALS: BP 103/63
== END 2018-08-23 18:50 | disposition home or self-care (01) ==
LOC: EDUNIT# 15:14 → ER 15:15
DX: R10.9 Unspecified abdominal pain (principal); J45.909 Unspecified asthma, uncomplicated; I10 Essential (primary) hypertension; G43.909 Migraine, unspecified, not intractable, without status migrainosus; K58.9 Irritable bowel syndrome, unspecified; K21.9 Gastro-esophageal reflux disease without esophagitis; E11.40 Type 2 diabetes mellitus with diabetic neuropathy, unspecified; F41.9 Anxiety disorder, unspecified; F43.10 Post-traumatic stress disorder, unspecified; F32.9 Major depressive disorder, single episode, unspecified; Z85.43 Personal history of malignant neoplasm of ovary; Z87.19 Personal history of other diseases of the digestive system; Z82.49 Family history of ischemic heart disease and other diseases of the circulatory system; Z88.6 Allergy status to analgesic agent; Z88.8 Allergy status to other drugs, medicaments and biological substances; Z79.51 Long term (current) use of inhaled steroids; Z79.4 Long term (current) use of insulin; Z79.52 Long term (current) use of systemic steroids; Z79.01 Long term (current) use of anticoagulants; Z87.891 Personal history of nicotine dependence; Z90.710 Acquired absence of both cervix and uterus; Z90.49 Acquired absence of other specified parts of digestive tract; Z98.890 Other specified postprocedural states; Z86.718 Personal history of other venous thrombosis and embolism
CPT/HCPCS: 82962; 99283